=== PATIENT | male | born 1975 | race Caucasian/White ===

== ENCOUNTER 2016-02-24 02:01 | Inpatient (IN) | payer MEDICARE, OTHER ==
[~2016-02-24] VITALS: Ht 177.8 cm; Wt 72.7 kg
[~2016-02-24 02:01] MED LIST: ACET325T33 GTB; ACET325T33 PO; ASC500 GTB; BISA10SU58 PR; CHLO15MO MM; CRAN3875 GTB; DANT50CA PO; DOCU-144 GTB; ESCI10TA GTB; FER325 GTB; HYDR-3498 PO; LEVA1.2523 NEB; LEVA1.257 INHALATION; MAGN400O4 GTB; MULT-552 PO; NA P118E PR; ONDA4TAB8 PO; PANT40SU2 GTB; POLY17PO6 PO; RISP0.5T21 PO; TYL500 PO
[2016-02-24 02:34] LABS: AADO2 Arterial 226.3 mmHg (7.0-24.0); Allen Test ACCEPTAB; Arterial Base Excess -0.8 mmol/L (-3.0-3); Arterial COHb 0.3 % (0.0-3.0); Arterial Fraction of Oxyhgb 96.6 % (93.0-99.0); Arterial HCO3 23.5 mmol/L (22.0-26.0); Arterial MetHb 0.1 % (0.0-1.5); Arterial Total Hemglobin 11.1 g/dl (12.0-18.0); MODE VENT - AC
--- NOTE | 2016-02-24 02:34 | RADRPT ---
PROCEDURE: XR Chest. CLINICAL INDICATION: Possible Sepsis TECHNIQUE: Single AP portable chest COMPARISON: 05/19/2015 FINDINGS: The cardiac silhouette is normal in size. Decreased vascular congestion and patchy air space diseas e compared to previous study. Mild vascular prominence suggestive of congestion. Dextroscoliosis o f the thoracic spine. Tracheostomy tube is in position. . The osseous structures and soft tissues are unremarkable. IMPRESSION: Mild vascular congestion. No focal consolidation or pleural effusion.. RPTAT:AAJJ Juliann Voss Physician Date Time Electronically viewed and signed by Juliann Voss Physician on 02/24/2016 02:34 KEN/
[2016-02-24 02:39] LABS: ALBUMIN 3.2 g/dl (3.3-4.9); BASOPHILS % 0.1 % (0.0-2.0); CHLORIDE 94 mmol/L (97-110); EOSINOPHILS % 0.1 % (0.0-7.0); HEMATOCRIT 31.1 % (42.0-52.0); HEMOGLOBIN 10.1 g/dl (14.0-18.0); INR 1.06; LYMPHOCYTES # 0.3 10^3/ul (0.8-2.9); LYMPHOCYTES % 2.1 % (15.0-51.0); MEAN CORPUSCULAR HEMOGLOBIN 29.1 pg (29.0-33.0); MEAN CORPUSCULAR HGB CONC 32.6 g/dl (32.0-37.0); MEAN CORPUSCULAR VOLUME 89.3 fl (82.0-101.0); MEAN PLATELET VOLUME 7.7 fl (7.4-10.4); MONOCYTE # 0.5 10^3/ul (0.3-0.9); MONOCYTES % 3.5 % (0.0-11.0); NEUTROPHILS % 94.2 % (39.0-77.0); PLATELET COUNT 312 10^3/UL (140-440); PROTIME 13.8 Sec (12.2-14.2); PT RATIO 1.1; RED BLOOD COUNT 3.48 10^6/ul (4.70-6.10); RED CELL DISTRIBUTION WIDTH 13.4 % (11.5-14.5); UNCORRECTED WBC 13.8 10^3/ul (4.8-10.8); WHITE BLOOD COUNT 13.8 10^3/ul (4.8-10.8)
[2016-02-24 02:40] LABS: PARTIAL THROMBOPLASTIN TIME 36.6 Sec (25.0-35.0); POTASSIUM 3.9 mmol/L (3.5-5.1); SODIUM 134 mmol/L (135-144)
[2016-02-24 02:41] LABS: ADD UMIC YES; URINE BILIRUBIN (Dip) NEGATIVE (NEGATIVE); URINE BLOOD (Dip) 3+ (NEGATIVE); URINE COLOR YELLOW (YELLOW); URINE GLUCOSE (Dip) NEGATIVE (NEGATIVE); URINE KETONES (Dip) NEGATIVE (NEGATIVE); URINE LEUKOCYTE ESTERASE (Dip) 3+ (NEGATIVE); URINE NITRITE (Dip) NEGATIVE (NEGATIVE); URINE TOTAL PROTEIN (Dip) 1+ (NEGATIVE); URINE UROBILINOGEN (Dip) 0.2 E.U./dL (0.1-1.0)
[2016-02-24 02:42] LABS: ALBUMIN/GLOBULIN RATIO 0.72; ALKALINE PHOSPHATASE 187 IU/L (42-121); ANION GAP 19 (8-16); ASPARTATE AMINO TRANSFERASE 12 IU/L (15-46); BLOOD UREA NITROGEN 104 mg/dl (7-20); CARBON DIOXIDE 25 mmol/L (21-31); CONDITION 1; CREATININE 2.97 mg/dl (0.61-1.24); GLUCOSE 124 mg/dl (70-220); LH ANALYZER COMMENTS 1; TOTAL PROTEIN 7.6 g/dl (6.1-8.1)
[2016-02-24 02:43] LABS: ALANINE AMINOTRANSFERASE 18 IU/L (13-69); CALCIUM 8.9 mg/dl (8.4-10.2)
[2016-02-24] MEDS ORDERED: VANCOMYCIN 1 GM (PMX) 250 ML IVPB ONE (02:47)
[2016-02-24] MEDS ORDERED: CEFEPIME 2GM/50 ML (PMX) 50 ML IVPB STA (02:47)
[2016-02-24] MEDS ORDERED: SODIUM CHLORIDE 0.9% 1L BAG IV* ONE (02:47)
--- NOTE | 2016-02-24 02:54 | ERA ---
ER Documentation Chief Complaint Date/Time DATE: 02/24/16 TIME: 02:51 Chief Complaint BIBA low O2 level after suctioning, resp distress, desaturation continued. HPI This is a 40-year-old male brought in by ambulance for desaturations from custodial facility. Patient trached vent patient. No history of per patient. History of EMS run sheet nursing transfer sheet. ROS All systems reviewed and are negative except as per history of present illness. Medications Home Meds Reported Medications Polyethylene Glycol* (Miralax*) 17 Gm Powd.pack, 17 GM PO QHS, PACKET 04/16/15 Multivitamins* (Once Daily*) 1 Tab Tablet, 1 TAB PO DAILY, TAB 04/16/15 Ondansetron Hcl* (Zofran*) 4 Mg Tablet, 4 MG PO Q6H Y for NAUSEA AND OR VOMITING , TAB 04/16/15 Magnesium Hydroxide* (Milk Of Magnesia*) 400 Mg/5 Ml Oral.susp, 30 ML PO DAILY Y for CONSTIPATION, ML 04/16/15 Escitalopram Oxalate* (Lexapro*) 10 Mg Tablet, 10 MG PO DAILY, #30 TAB 04/16/15 Na Phos,M-B/Na Phos,Di-Ba* (Fleet* Enema) 118 Ml Enema, 118 ML TX Q48H Y for CONSTIPATION, ENEMA 04/16/15 Ferrous Sulfate* (Ferrous Sulfate*) 325 Mg Tabec, 325 MG PO DAILY, TAB 04/16/15 Bisacodyl* (Dulcolax*) 10 Mg/Supp.rect Supp.rect, 10 MG TX Q24H Y for CONSTIPATION, SUPP.RECT 04/16/15 Dantrolene Sodium* (Dantrolene Sodium*) 50 Mg Capsule, 50 MG PO BID, CAP 04/16/15 Docusate Sodium* (Colace*) 100 Mg Capsule, 200 MG PO QHS, #30 CAP 04/16/15 Chlorhexidine Gluconate* (Peridex*) 480 Ml Mouthwash, 15 ML MM Q12, ML 04/16/15 Levalbuterol Hcl* (Levalbuterol Hcl*) 1.25 Mg/3 Ml Vial.neb, 1.25 MG INHALATION Q6H Y for WHEEZING AND SOB, VIAL 04/16/15 Levalbuterol* (Xopenex*) 1.25 Mg/3 Ml Nebu, 1.25 MG NEB Q3H Y for WHEEZING AND SOB, EA 04/16/15 Ascorbic Acid (Vitamin C) 500 Mg Tab, 500 MG PO DAILY, TAB 04/16/15 Cran/Vitc/Mannose/Inulin/Brom (Uti-Stat Liquid) 3,875 Mg/30 Ml Liquid, 3875 MG PO DAILY 04/16/15 Acetaminophen* (Tylenol*) 500 Mg Tab, 1000 MG PO Q4H Y for MODERATE PAIN LEVEL 4 -6, TAB 04/16/15 Acetaminophen* (Tylenol*) 325 Mg Tablet, 650 MG PO Q4 Y for FEVER GREATER THAN 100.6, TAB 04/16/15 Acetaminophen* (Tylenol*) 325 Mg Tablet, 650 MG PO Q4H Y for MILD PAIN LEVEL 1-3 , TAB 04/16/15 Acetaminophen* (Tylenol*) 325 Mg Tablet, 325 MG PO Y for TRACH TUBE CHANGE, TAB 04/16/15 Risperidone* (Risperdal*) 0.5 Mg Tablet, 0.5 MG PO BID, TAB 04/16/15 Pantoprazole (Protonix) 40 Mg/Blist Pack Suspdr.pkt, 40 MG PO DAILY, PACKET 04/16/15 Hydrocodone Bit-Acetaminophen* ([place]*) 5-325 Mg Tab, 1 TAB PO BID, TAB 04/16/15 Hydrocodone Bit-Acetaminophen* ([place]*) 5-325 Mg Tab, 1 TAB PO Q6 Y for PAIN LEVEL 7-10, TAB 04/16/15 Allergies Allergies: Coded Allergies: No Known Allergy (Unverified , 04/16/15) PMhx/Soc History of Surgery: Yes Anesthesia Reaction: No Hx Psychiatric Problems: Yes (depression, psychosis) Hx Miscellaneous Medical Probl: Yes (spinal chord injury, 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, SUPRAPUBIC CATHETER) Hx Alcohol Use: No Hx Substance Use: No Hx Tobacco Use: No Smoking Status: Never smoker Physical Exam Vitals Vital Signs Date Time Temp Pulse Resp B/P Pulse Ox O2 Delivery O2 Flow Rate FiO2 02/24/16 02:30 99.3 118 19 82/48 99 Mechanical Ventilator 02/24/16 02:24 116 16 120/71 99 Mechanical Ventilator 02/24/16 02:22 116 16 122/88 100 Mechanical Ventilator 02/24/16 02:15 116 20 79/51 100 Ambu Bag 15.0 02/24/16 02:14 116 20 75/49 100 Physical Exam Const: [] Head: Atraumatic Eyes: Normal Conjunctiva ENT: Trach site clean dry and intact Neck: Full range of motion..~ No meningismus. Resp: Clear to auscultation bilaterally Cardio: Regular rate and rhythm, no murmurs Abd: Soft, non tender, non distended. Normal bowel sounds. Suprapubic catheter with minimal induration surrounding site. Catheter draining purulent urine Skin: No petechiae or rashes Back: No midline or flank tenderness Ext: No cyanosis, or edema Neur: Obtunded Psych: Normal Mood and Affect Result Diagram: 02/24/16 0200 02/24/16 0200 Results 24 hrs Laboratory Tests Test 02/24/16 00:00 02/24/16 02:00 02/24/16 02:22 Arterial Blood HCO3 23.5mmol/L Arterial Blood Base Excess -0.8mmol/L Arterial Blood Oxygen Saturation 97.0mmHG Julito Test ACCEPTAB Arterial Blood Gas Puncture Site Right Brachial Arterial Blood Carboxyhemoglobin 0.3% Arterial Blood Date Drawn 02/24/2016 2:25:02 AM Arterial Blood Methemoglobin 0.1% Arterial Blood pCO2 (Temp correct) 37.7mmhg Arterial Blood pH (Temp corrected) 7.413 Arterial Blood pO2 (Temp corrected) 87.8mmHG Blood Gas A-a O2 Differential 226.3mmHg Blood Gas Actual Respiration Rate 14 Blood Gas Low PEEP Setting 5.0cmH2O Blood Gas Modality VENT - AC Blood Gas Notified Time 02/24/2016 2:34:42 AM Blood Gas Notified Whom MG Blood Gas Respiration Rate 14.0 Blood Gas Specimen Source Blood arterial Blood Gas Temperature 37.0C Blood Gas Tidal Volume 550.0mL FiO2 50.0% Oxyhemoglobin Percent 96.6% Total Hemoglobin 11.1g/dl Activated Partial Thromboplast Time 36.6Sec Alanine Aminotransferase (ALT/SGPT) Pending Albumin 3.2g/dl Albumin/Globulin Ratio Pending Alkaline Phosphatase Pending Anion Gap Pending Aspartate Amino Transf (AST/SGOT) Pending Basophils # 0.010^3/ul Basophils % 0.1% Blood Urea Nitrogen Pending Calcium Level Pending Carbon Dioxide Level Pending Chloride Level 94mmol/L Creatinine Pending Direct Bilirubin Pending Eosinophils # 0.010^3/ul Eosinophils % 0.1% Globulin Pending Glucose Level Pending Hematocrit 31.1% Hemoglobin 10.1g/dl INR International Normalized Ratio 1.06 Indirect Bilirubin Pending Lymphocytes # 0.310^3/ul Lymphocytes % 2.1% Mean Corpuscular Hemoglobin 29.1pg Mean Corpuscular Hemoglobin Concent 32.6g/dl Mean Corpuscular Volume 89.3fl Mean Platelet Volume 7.7fl Monocytes # 0.510^3/ul Monocytes % 3.5% Neutrophils # 13.010^3/ul Neutrophils % 94.2% Nucleated Red Blood Cells # 0.010^3/ul Nucleated Red Blood Cells % 0.0/100WBC Platelet Count 93273^3/UL Potassium Level 3.9mmol/L Prothrombin Time 13.8Sec Prothrombin Time Ratio 1.1 Red Blood Count 3.4810^6/ul Red Cell Distribution Width 13.4% Sodium Level 134mmol/L Total Bilirubin Pending Total Protein Pending Troponin I Pending White Blood Count 13.810^3/ul Urine Bilirubin NEGATIVE Urine Clarity HAZY Urine Color YELLOW Urine Glucose NEGATIVE% Urine Hemoglobin 3+ Urine Ketones NEGATIVE Urine Leukocyte Esterase 3+ Urine Microscopic RBC Pending Urine Microscopic WBC Pending Urine Nitrite NEGATIVE Urine Specific [place] 1.015 Urine Total Protein 1+ Urine Urobilinogen 0.2 E.U./dL Urine pH 8.5 Current Medications Medications (Trade) Dose Ordered Sig/Dwain Route PRN Reason Start Time Stop Time Status Last Admin Dose Admin Sodium Chloride (NS) 1,000 ml @ 1,000 mls/hr Q1H ONCE IV 02/24/16 03:00 02/24/16 03:59 Sodium Chloride 2250 ml 2,250 ml BOLUS OVER 2 HOURS ONCE IV* 02/24/16 02:47 02/24/16 02:49 DC Vancomycin HCl 250 ml @ 125 mls/hr ONCE ONCE IVPB 02/24/16 02:47 02/24/16 04:46 Cefepime HCl (Maxipime 2gm/50 ml (Pmx)) 50 ml @ 100 mls/hr ONCE STAT IVPB 02/24/16 02:47 02/24/16 03:16 Procedures/MDM Patient's infectious symptoms have not stabilized and the patient is at risk of rapid decompensation. The patient will be admitted for careful hydration, antibiotic therapy, and infectious source control. Severe Sepsis Assessment: Infectious Source: pyleonephritis End organ damage indicated by: [Lactate > 2.0 mmol/L Hypotension( SBP < 90 or >40 mmHG drop or MAP < 65) Acute Resp Failure (sat < 92% w/o oxygen) Severe Sepsis Managment: Blood Cultures X 2 before broad spectrum antibiotics initiated within 3 hours of recognition. 30 ml/kg NS bolus Completed Initial Lactate: Elevated Repeat Lactate pending Critical Care: Time: 45 minutes Treatments/Evaluations: Emergent fluid management, while maintaining close respiratory support. Immediate broad spectrum antibiotic therapy. Simultaneous assessment for possible sources in order to direct therapy. Consideration for invasive and chemical support to prevent respiratory or cardiac collapse. Septic Shock Assessment (1 hour post 30 ml/kg fluid bolus): Hypotension (SBP < 90 or 40 mmHg drop, MAP < 65): No Lactic acid > 4.0 No Perfusion Reassessment for Septic Shock: Temp 99.2, Pulse 107, RR [16, BP 97/62 Heart Exam: [Tachycardic Lung Exam: No Crackles Capillary Refill: Delayed Peripheral Pulses: Radially present Skin: Mottled, pale Accepting Care Team: Current data and ongoing care discussed. Time: 2:45 AM Primary Provider: Hospitalist Consulting: Per hospitalist Outstanding Data: none Chest X-ray 1V Interpreted by me: Soft Tissue: No acute abnormalities Bones: No acute abnormalities Mediastinum/Cardiac Silhouette/Lungs: No acute abnormalities EKG: Rate/Rhythm: Sinus tachycardia 114 bpm QRS, ST, T-waves: [No changes consistent w/ acute ischemia] Impression: Sinus tachycardia Departure Diagnosis: Primary Impression: Sepsis Qualified Code: A41.9 - Sepsis, due to unspecified organism Condition: Critical TATI STAUFFER Feb 24, 2016 02:54
[2016-02-24 02:55] LABS: BACTERIA,URINE MANY; SQUAMOUS EPITHELIAL CELL,UR FEW
[2016-02-24 02:57] LABS: TROPONIN-I < 0.012 ng/ml (0.00-0.12)
[2016-02-24] MEDS ORDERED: SOD CHLORIDE 0.9% 1,000 ML IV ONE (03:00)
[2016-02-24] MEDS ORDERED: morphine 4 MG/ML VIAL IV ONE (03:06)
[2016-02-24] MEDS ORDERED: ONDANSETRON 4 MG INJ IV ONE (03:06)
[2016-02-24] MEDS ORDERED: NACL 0.9% 3 ML SYG IV SCH (07:00)
[2016-02-24] MEDS ORDERED: VANCOMYCIN IV PER PHARMACY XX SCH (07:00)
[2016-02-24] MEDS ORDERED: ACETAMINOPHEN 325 MG TAB PO PRN (07:00)
[2016-02-24] MEDS ORDERED: LORA1TAB GTB (07:20)
[2016-02-24] MEDS ORDERED: BICS GTB (07:22)
[2016-02-24] MEDS ORDERED: OXYB5TAB22 GTB (07:24)
[2016-02-24] MEDS ORDERED: MULT473L10 PO (07:27)
[2016-02-24] MEDS ORDERED: HYDR-906 GTB (07:28)
[2016-02-24] MEDS: DEXTROSE 5%-0.45% NACL 1,000 ML IV SCH ×2 (07:30→22:13)
[2016-02-24] MEDS ORDERED: AMLO5TAB4 GTB (07:30)
[2016-02-24] MEDS ORDERED: CALC-277 PO (07:31)
[2016-02-24] MEDS: morphine 2 MG INJ IV PRN ×3 (07:36→21:51)
[2016-02-24] MEDS ORDERED: SEVE0.8P PO (07:39)
[2016-02-24] MEDS ORDERED: RISP1TAB3 GTB (07:40)
--- NOTE | 2016-02-24 07:41 | HP ---
DATE OF ADMISSION: 02/24/2016 TIME SEEN: 5 a.m. CHIEF COMPLAINT: Hypoxia. 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 Reportedly, he began to desaturate while he was at the fdc facility. He wa s suctioned and he was being bagged through his trach on arrival to the ER. Initial vital signs saeed w blood pressure of 75/49, heart rate 113, respiratory rate 14, oxygen saturation 100% on 50% FIO2. Temperature was 99.3. Laboratory result was notable for a WBC of 14,000, hemoglobin 10.1, which is stable. Sodium 134, BUN 104 and creatinine 2.97 from 1.7 about 9 months ago. The patient received weight-based IV fluids and was started on vancomycin and cefepime. His urinalysis shows a severe U TI. Chest x-ray showed mild vascular congestion with no focal consolidation or pleural effusion. O f note, the patient was last admitted here in April of last year for sepsis secondary to pneumonia and a UTI. At that time, the patient was discharged to [facility] with the intent to wean off the vent . REVIEW OF SYSTEMS: Negative except as mentioned in HPI. PAST MEDICAL HISTORY: As per HPI. PAST SURGICAL HISTORY: Tracheostomy, history of PEG placement, and also had a history of suprapubic catheter placement ALLERGIES: NO KNOWN DRUG ALLERGIES. HOME MEDICATION: 1. Dantrolene. 2. Xopenex. 3. Ferrous sulfate. 4. Acetaminophen. 5. Lexapro. 6. Rudolph. 7. Risperidone. 8. Peridex. 9. Dulcolax. 10. Zofran. 11. Protonix. 12. MiraLax. 13. Vitamin C. 14. Multivitamin. PHYSICAL EXAMINATION: VITAL SIGNS: Blood pressure 118/72, heart rate 104, respiratory rate 19, temperature 99.3, oxygen s aturation 100% on 50% FIO2. GENERAL: He is sleepy but arousable in no acute distress. HEENT: No obvious head deformity. Pupils are reactive to light. No scleral icterus. NECK: Trach tube in place. CARDIOVASCULAR: Tachycardic with regular rhythm. LUNGS: Slight decreased breath sounds at the bases anteriorly. ABDOMEN: Soft, nondistended. EXTREMITIES: No edema. He has a contracted body habitus and there is muscle wasting. LABORATORY: Pertinent positives as mentioned in the HPI. IMAGING: Chest x-ray shows mild vascular congestion and no focal consolidation or pleural effusion. IMPRESSION: 1. Sepsis secondary to urinary tract infection. 2. Hypoxia, possibly from increased secretions, improved. 3. Chronic kidney disease, worsening. 4. Chronic paraplegia from a cervical spine injury. 5. Chronic trach/vent respiratory failure. PLAN: Will admit to telemetry unit, but if patient's condition deteriorates, then he will go to ICU . Will continue broad spectrum antibiotics. Will follow up on blood culture and urine culture resu lts and will also send tracheal aspirate for Gram stain and culture. The patient has not been given based IV fluids and will continue fluids as needed. Will place a nephrology consult given the wors ening kidney function, which is likely secondary to sepsis. Will leave the decision up to nephrolog y as far as obtaining a renal ultrasound is concerned. Will place a pulmonary consult. Further workup and management will be per clinical course. Dictated By: TATI KESSLER/QUE Conf#: [id number] DID#: [id number]
[2016-02-24] MEDS: HEPARIN 5,000 UNIT/0.5 ML SYG SC SCH (09:47)
[2016-02-24] MEDS: RISPERIDONE 0.25 MG TAB PO SCH (10:03)
[2016-02-24] MEDS: MULTIVITAMINS THERAPEUTIC TAB PO SCH (10:03)
[2016-02-24] MEDS: ESCITALOPRAM 10 MG TAB PO SCH (10:04)
[2016-02-24] MEDS: CEFEPIME 1GM/50 ML (PMX) 50 ML IVPB SCH ×2 (11:58→22:13)
--- NOTE | 2016-02-24 15:33 | QN ---
Documentation Comment Tracheostomy change: Patient had persistent leak from his size 7 trach. Therefore I changed the trach at the bedside with assistance from respiratory. Patient tolerated entire procedure. Size 8 trach placed instead of 7. GANESH BARCLAY MD Feb 24, 2016 15:33
[2016-02-24] MEDS ORDERED: HYDROmorphONE 1 MG/ML SYG IV STA (15:57)
--- NOTE | 2016-02-24 18:10 | CONS ---
DATE OF ADMISSION: 02/24/2016 DATE OF CONSULTATION: 02/24/2016 TYPE OF CONSULTATION: Infectious disease. REASON FOR CONSULTATION: Antibiotic management. HISTORY OF PRESENT ILLNESS: Henry Haddad is a 40-year-old male with numerous problems including chronic paraplegia from his cervical spine injury that comes in hypoxic and is being seen for antibi otic management. His problems that include: 1. Chronic paraplegia. 2. Ventilator dependent respiratory failure. 3. Sepsis from pneumonia and urinary tract infection. 4. Chronic renal disease. Patient was brought in for hypoxia. He began to desaturate while he was at the assisted facility. Initial vital signs showed a blood pressure of 75/49. He was mary lou ng bagged through his trach on arrival in the emergency room. Respiratory rate was 14 and he needed 50% FIO2 for an O2 sat of 100%, temperature was 99.3. Laboratory results notable for white count of 14,000. BUN and creatinine 104/2.97. The patient was given vancomycin and cefepime. His white co unt was 13.8, H and H 10.1 and 31.1, platelet count of 312,000. His BUN and creatinine was 104/2.97 . Urine shows 3+ leukocyte esterase and greater than 200 white cells per high powered field. Chest x-ray showed mild vascular congestion. No focal consolidation or pleural effusion. PAST MEDICAL HISTORY, PAST SURGICAL HISTORY: Status post tracheostomy, status post G-tube placement . Also, history of suprapubic catheter placement. FAMILY HISTORY: Noncontributory. SOCIAL HISTORY: He obviously does not smoke, drink or abuse drugs. ALLERGIES: NONE TO PENICILLIN, SULFA OR FOODS. MEDICATIONS: Per chart. REVIEW OF SYSTEMS: As per HPI. PHYSICAL EXAMINATION: GENERAL: The patient is a well-developed, well-nourished, chronically ill-appearing male who is sle epy but arousable. VITAL SIGNS: Stable at this point, he is afebrile. SKIN: Without generalized rash. HEENT: Within normal limits. LYMPH NODES: Tracheostomy in place. CHEST: Decreased breath sounds at the bases. HEART: Without murmur or gallop. Tachycardic. ABDOMEN: Soft and nontender. EXTREMITIES: Without cyanosis, clubbing, or edema. He has some contractures and muscle wasting. RECTAL AND GENITAL: Deferred. NEUROLOGIC: No focal neurological abnormality. IMPRESSION AND PLAN: The patient comes in with hypoxemia, probably sepsis secondary to urinary trac t infection, started on vancomycin and cefepime. Blood cultures and urine cultures were done. A tr acheal aspirate was sent for Gram stain and culture, nephrology consultation was obtained as well fo r BUN and creatinine 104/2.97, up from 1.7 nine months ago. We will observe, continue him on curren t therapy. I will dictate my findings to the hospitalist. Dictated By: ANTONELLA STEWART MD, JD/QUE Conf#: [id number] DID#: [id number]
--- NOTE | 2016-02-24 19:15 | QN ---
Documentation Comment [id number] RENAL A/P BELINDA ATN PRERENAL AZOTEMIA SEPSIS UTI PLAN PER ORDER BRIANDA HIRSCH MD Feb 24, 2016 19:15
[2016-02-24] MEDS: HYDROmorphONE 1 MG/ML SYG IV PRN (19:20)
[2016-02-24 20:30] VITALS: TEMP 98
--- NOTE | 2016-02-24 20:43 | CONS ---
DATE OF ADMISSION: 02/24/2016 DATE OF CONSULTATION: TYPE OF CONSULTATION: Nephrology. Thank you, Dr. Pavan Miner and Dr. Estevez, for kindly asking me to see this patient in nephrology cons ultation. HISTORY OF PRESENT ILLNESS: A 40-year-old male who has a history of cervical spine injury, parapleg ia, has a tracheostomy and had a G-tube. The patient presented to this hospital for hypoxemia and d esaturation. The patient's laboratory data done shows the patient has uremia, electrolyte imbalance , leukocytosis. In view of patient's abnormal electrolytes, nephrology consultation is requested. The patient himself cannot give a detailed history at this point. PAST MEDICAL HISTORY: Positive for severe sepsis secondary to healthcare-associated pneumonia versu s aspiration pneumonia, status post history of paraplegia, cervical spine injury, history of UTI, hi story of CKD. The patient's other history includes patient has a history of neurogenic bladder, his tory of dysphagia, G-tube placement, history of depression. ALLERGY HISTORY: LISTED NEGATIVE. FAMILY HISTORY: Cannot be obtained. SOCIAL HISTORY: Cannot be obtained. MEDICATION HISTORY: The patient's home medications listed as: 1. Tylenol. 2. Norvasc. 3. Vitamin C. 4. Calcium carbonate. 5. Peridex. 6. Bicitra. 7. Cranberry. 8. Vitamins. 9. Dantrolene sodium. 10. Docusate sodium. 11. Lexapro. 12. Iron sulfate. 13. [place]. 14. Xopenex. 15. Lorazepam. 16. Milk of magnesia. 17. Multivitamin. 18. Ditropan. 19. Protonix. 20. MiraLax. 21. Risperdal. 22. Renvela. REVIEW OF SYSTEMS: Limited. PHYSICAL EXAMINATION: GENERAL: The patient is awake, alert, aphasic due to tracheostomy. VITAL SIGNS: Pulse 90, blood pressure of 123/82. HEENT: Head is atraumatic, normocephalic. Pupils are equal and reactive. NECK: Tracheostomy site is clear. LUNGS: Rhonchi noted and ____ crepitation at bases. CARDIOVASCULAR: S1, S2 are normal. Tachycardia noted. ABDOMEN: Soft, distended. Bowel sounds positive. G-tube noted. EXTREMITIES: No cyanosis, clubbing. Muscle wasting and lower extremity paraplegia noted. LABORATORY DATA: ABG: pH 7.41, pCO2 of 37, pO2 of 87. WBC 13.8, hematocrit 31.1, platelet count o f 312. Sodium 134, potassium 3.9, chloride 94, BUN 104, creatinine 2.97. Urinalysis: pH 8, specif ic gravity 1.015, ____ 3+. The patient has a chest x-ray, shows mild vascular congestion, no focal consolidation or pleural eff usion. The patient's BUN 49, creatinine 1.92 on 04/20/2015. IMPRESSION: The patient has: 1. Acute kidney injury. 2. Sepsis. 3. Underlying prerenal azotemia. 4. Underlying acute tubular necrosis due to sepsis. 5. Anion gap metabolic acidosis. 6. Hyponatremia. 7. Leukocytosis. 8. Anemia. 9. Urinary tract infection. 10. Lung congestion, possible underlying pneumonia. 11. Paraplegia. 12. Respiratory failure and tracheostomy. 13. Incomplete database. PLAN: Obtain urine sodium, creatinine, eosinophils, serum osmolality, urine osmolality. The patien t will be started on saline solution IV fluid to reverse any component of prerenal azotemia. Electr olytes will be monitored. Recommendation will be made to avoid nephrotoxic drugs whenever possible and antibiotic dose adjustment per pharmacy and per infectious disease doctor on the case in view of patient's acute kidney injury. Thank you, Dr. Estevez and Dr. Miner, for kindly asking me to see this patient in nephrology consultatio n. Dictated By: BRIANDA JACKSON/QUE Conf#: [id number] DID#: [id number]
[2016-02-24] MEDS: POLYETHYLENE GLYCOL 17 GM PACKET PO SCH (21:00)
[2016-02-24 22:30] VITALS: BP 97/56; PULSE 118; RESP 18; Ht 177.8 cm; Wt 72.7 kg
[2016-02-24 22:39] VITALS: PULSE 115
[2016-02-25] VITALS (60 sets, daily range): BP systolic 72–139; BP diastolic 37–72; PULSE 83–121; RESP 14–28
[2016-02-25] MEDS: SOD CHLORIDE 0.45% 1,000 ML IV SCH ×4 (00:08→21:40)
[2016-02-25] MEDS: ZOLPIDEM 5 MG TAB PO PRN (00:09)
[2016-02-25] MEDS: RISPERIDONE 0.25 MG TAB PO SCH ×3 (00:09→21:49)
[2016-02-25] MEDS: HEPARIN 5,000 UNIT/0.5 ML SYG SC SCH ×3 (00:30→21:15)
[2016-02-25] MEDS: DEXTROSE 5%-0.45% NACL 1,000 ML IV SCH (03:30)
[2016-02-25 06:49] LABS: BASOPHILS % 0.2 % (0.0-2.0); EOSINOPHILS # 0.1 10^3/ul (0.0-0.5); EOSINOPHILS % 0.6 % (0.0-7.0); HEMATOCRIT 29.9 % (42.0-52.0); HEMOGLOBIN 9.7 g/dl (14.0-18.0); LYMPHOCYTES # 0.6 10^3/ul (0.8-2.9); LYMPHOCYTES % 6.3 % (15.0-51.0); MEAN CORPUSCULAR HEMOGLOBIN 29.4 pg (29.0-33.0); MEAN CORPUSCULAR HGB CONC 32.6 g/dl (32.0-37.0); MEAN CORPUSCULAR VOLUME 90.3 fl (82.0-101.0); MEAN PLATELET VOLUME 7.5 fl (7.4-10.4); MONOCYTE # 0.5 10^3/ul (0.3-0.9); NEUTROPHIL # 7.6 10^3/ul (1.6-7.5); NEUTROPHILS % 86.9 % (39.0-77.0); PLATELET COUNT 266 10^3/UL (140-440); RED BLOOD COUNT 3.31 10^6/ul (4.70-6.10); RED CELL DISTRIBUTION WIDTH 13.7 % (11.5-14.5); UNCORRECTED WBC 8.8 10^3/ul (4.8-10.8); WHITE BLOOD COUNT 8.8 10^3/ul (4.8-10.8)
[2016-02-25 06:57] LABS: CONDITION 1
[2016-02-25 07:03] LABS: ALBUMIN 2.8 g/dl (3.3-4.9)
[2016-02-25 07:04] LABS: POTASSIUM 3.9 mmol/L (3.5-5.1)
[2016-02-25 07:06] LABS: ALBUMIN/GLOBULIN RATIO 0.65; CREATININE 2.71 mg/dl (0.61-1.24); TOTAL PROTEIN 7.1 g/dl (6.1-8.1)
[2016-02-25 07:07] LABS: CALCIUM 8.9 mg/dl (8.4-10.2); MAGNESIUM 2.5 mg/dl (1.7-2.5)
[2016-02-25] MEDS: ESCITALOPRAM 10 MG TAB PO SCH (08:41)
[2016-02-25] MEDS: MULTIVITAMINS THERAPEUTIC TAB PO SCH (08:41)
[2016-02-25] MEDS ORDERED: SOD CHLORIDE 0.9% 1,000 ML IV ONE ×2 (09:00→12:00)
[2016-02-25] MEDS ORDERED: ALBUMIN HUMAN 5% 250 ML IV ONE (10:30)
[2016-02-25] MEDS ORDERED: LIDOCAINE 1% (MDV) 20 ML INJ SC ONE (11:00)
--- NOTE | 2016-02-25 14:11 | HP ---
Date/Time of Note Date/Time of Note DATE: 02/25/16 TIME: 14:10 Assessment/Plan Lines/Catheters IV Catheter Type (from Nrsg): Peripheral IV HPI/ROS Admit Date/Time Admit Date/Time Feb 24, 2016 at 05:06 Hx of Present Illness BIBA low O2 level after suctioning, resp distress, desaturation continued. HPI This is a 40-year-old male brought in by ambulance for desaturations from intermediate facility. Patient trached vent patient. No history of per patient. History of EMS run sheet nursing transfer sheet. ROS All systems reviewed and are negative except as per history of present illness. Medications Home Meds Reported Medications Polyethylene Glycol* (Miralax*) 17 Gm Powd.pack, 17 GM PO QHS, PACKET 04/16/15 Multivitamins* (Once Daily*) 1 Tab Tablet, 1 TAB PO DAILY, TAB 04/16/15 Ondansetron Hcl* (Zofran*) 4 Mg Tablet, 4 MG PO Q6H Y for NAUSEA AND OR VOMITING , TAB 04/16/15 Magnesium Hydroxide* (Milk Of Magnesia*) 400 Mg/5 Ml Oral.susp, 30 ML PO DAILY Y for CONSTIPATION, ML 04/16/15 Escitalopram Oxalate* (Lexapro*) 10 Mg Tablet, 10 MG PO DAILY, #30 TAB 04/16/15 Na Phos,M-B/Na Phos,Di-Ba* (Fleet* Enema) 118 Ml Enema, 118 ML FL Q48H Y for CONSTIPATION, ENEMA 04/16/15 Ferrous Sulfate* (Ferrous Sulfate*) 325 Mg Tabec, 325 MG PO DAILY, TAB 04/16/15 Bisacodyl* (Dulcolax*) 10 Mg/Supp.rect Supp.rect, 10 MG FL Q24H Y for CONSTIPATION, SUPP.RECT 04/16/15 Dantrolene Sodium* (Dantrolene Sodium*) 50 Mg Capsule, 50 MG PO BID, CAP 04/16/15 Docusate Sodium* (Colace*) 100 Mg Capsule, 200 MG PO QHS, #30 CAP 04/16/15 Chlorhexidine Gluconate* (Peridex*) 480 Ml Mouthwash, 15 ML MM Q12, ML 04/16/15 Levalbuterol Hcl* (Levalbuterol Hcl*) 1.25 Mg/3 Ml Vial.neb, 1.25 MG INHALATION Q6H Y for WHEEZING AND SOB, VIAL 04/16/15 Levalbuterol* (Xopenex*) 1.25 Mg/3 Ml Nebu, 1.25 MG NEB Q3H Y for WHEEZING AND SOB, EA 04/16/15 Ascorbic Acid (Vitamin C) 500 Mg Tab, 500 MG PO DAILY, TAB 04/16/15 Cran/Vitc/Mannose/Inulin/Brom (Uti-Stat Liquid) 3,875 Mg/30 Ml Liquid, 3875 MG PO DAILY 04/16/15 Acetaminophen* (Tylenol*) 500 Mg Tab, 1000 MG PO Q4H Y for MODERATE PAIN LEVEL 4 -6, TAB 04/16/15 Acetaminophen* (Tylenol*) 325 Mg Tablet, 650 MG PO Q4 Y for FEVER GREATER THAN 100.6, TAB 04/16/15 Acetaminophen* (Tylenol*) 325 Mg Tablet, 650 MG PO Q4H Y for MILD PAIN LEVEL 1-3 , TAB 04/16/15 Acetaminophen* (Tylenol*) 325 Mg Tablet, 325 MG PO Y for TRACH TUBE CHANGE, TAB 04/16/15 Risperidone* (Risperdal*) 0.5 Mg Tablet, 0.5 MG PO BID, TAB 04/16/15 Pantoprazole (Protonix) 40 Mg/Blist Pack Suspdr.pkt, 40 MG PO DAILY, PACKET 04/16/15 Hydrocodone Bit-Acetaminophen* ([place]*) 5-325 Mg Tab, 1 TAB PO BID, TAB 04/16/15 Hydrocodone Bit-Acetaminophen* ([place]*) 5-325 Mg Tab, 1 TAB PO Q6 Y for PAIN LEVEL 7-10, TAB 04/16/15 Allergies Allergies: Coded Allergies: No Known Allergy (Unverified , 04/16/15) PMH/Family/Social Past Medical History PMhx/Soc History of Surgery: Yes Anesthesia Reaction: No Hx Psychiatric Problems: Yes (depression, psychosis) Hx Miscellaneous Medical Probl: Yes (spinal chord injury, 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, SUPRAPUBIC CATHETER) Hx Alcohol Use: No Hx Substance Use: No Hx Tobacco Use: No Smoking Status: Never smoker Social History Smoking Status: Never smoker Exam/Review of Systems Vital Signs Vitals Vital Signs Date Time Temp Pulse Resp B/P Pulse Ox O2 Delivery O2 Flow Rate FiO2 02/25/16 12:30 97 02/25/16 12:30 90/53 02/25/16 11:27 98.8 20 91 02/25/16 05:42 Aerosol 10.0 50 T Tube Intake and Output 02/24/16 02/24/16 02/25/16 15:00 23:00 07:00 Intake Total 75 ml Output Total 2000 ml 600 ml Balance -2000 ml -525 ml Labs Result Diagram: 02/25/1614 02/25/1614 Medications Medications Current Medications Ondansetron HCl (Zofran Inj) 4 mg Q6H PRN IV NAUSEA AND/OR VOMITING; Start at 07:00 Acetaminophen (Tylenol Tab) 650 mg Q6H PRN PO PAIN LEVEL 1-3 OR FEVER Last administered on 02/25/16 08:41; Admin Dose 650 MG; Start 02/24/16 at 07:00 Morphine Sulfate (morphine) 2 mg Q4H PRN IV PAIN LEVEL 7-10 Last administered on 02/24/16 21:51; Admin Dose 2 MG; Start 02/24/16 at 07:00 Heparin Sodium (Porcine) (Heparin (5000 Units/0.5 ml)) 5,000 unit Q12 SC Last administered on 02/25/16 08:49; Admin Dose 5,000 UNIT; Start 02/24/16 at 09:00 Escitalopram Oxalate (Lexapro) 10 mg DAILY PO Last administered on 02/25/16 08 :41; Admin Dose 10 MG; Start 02/24/16 at 09:00 Magnesium Hydroxide (Milk Of Mag) 30 ml DAILY PRN PO CONSTIPATION; Start at 07:00 Multivitamins Therapeutic (Theragran) 1 tab DAILY PO Last administered on 08:41; Admin Dose 1 TAB; Start 02/24/16 at 09:00 Polyethylene Glycol (Miralax) 17 gm QHS PO ; Start 02/24/16 at 21:00 Risperidone 0.5 mg 0.5 mg BID PO Last administered on 02/25/16 08:41; Admin Dose 0.5 MG; Start 02/24/16 at 09:00 Cefepime HCl (Maxipime 1gm/50 ml (Pmx)) 50 ml @ 100 mls/hr Q12 IVPB Last administered on 02/24/16 22:13; Admin Dose 100 MLS/HR; Start 02/24/16 at 12:00 Hydromorphone HCl 0.5 mg 0.5 mg Q6H PRN IV pain Last administered on 02/24/16 19:20; Admin Dose 0.5 MG; Start 02/24/16 at 16:00 Sodium Chloride (1/2 NS) 1,000 ml @ 75 mls/hr [id number] IV Last administered on 02/25/16 08:40; Admin Dose 75 MLS/HR; Start 02/24/16 at 19:00 Influenza Virus Vaccine (Fluzone) 0.5 ml ONCE ONCE IM* ; Start 02/27/16 at 09:00 ; Stop 02/27/16 at 09:01 Acetaminophen/ Hydrocodone Bitart ([place] (5/325)) 1 tab Q4H PRN GTB pain; Start 02/25/16 at 12:00 Zinc Sulfate (Zinc Sulfate) 220 mg DAILY GTB ; Start 02/26/16 at 09:00 Miscellaneous Information (*Rx Drug Level Order Reminder*) 1 ONCE ONCE XX ; Start 02/26/16 at 05:00; Stop 02/26/16 at 05:01 NAE VELAZCO Feb 25, 2016 14:11
--- NOTE | 2016-02-25 14:37 | PN ---
Date/Time of Note Date/Time of Note DATE: 02/25/16 TIME: 14:25 Assessment/Plan VTE Prophylaxis VTE Prophylaxis Intervention: other Lines/Catheters IV [facility] (from [facility] Peripheral IV Assessment/Plan Assessment/Plan Sepsis. - per ID- Dr Maciel - lactic acid AM Hypotension sec to sepsis - Transfer to icu - SEE ORDERS Acute kidney injury - per nephrology Underlying prerenal azotemia. Underlying acute tubular necrosis due to sepsis. Anion gap metabolic acidosis. Hyponatremia. Respiratory failure and tracheostomy. - Pulmonary consult appreciated- Dr Ames notified Anemia. Urinary tract infection. Lung congestion, possible underlying pneumonia. Paraplegia. dw Dr Barreto Exam/Review of Systems Vital Signs Vitals Vital Signs Date Time Temp Pulse Resp B/P Pulse Ox O2 Delivery O2 Flow Rate FiO2 02/25/16 12:30 97 02/25/16 12:30 90/53 02/25/16 11:27 98.8 20 91 02/25/16 05:42 Aerosol 10.0 50 T Tube Intake and Output 02/24/16 02/24/16 02/25/16 15:00 23:00 07:00 Intake Total 75 ml Output Total 2000 ml 600 ml Balance -2000 ml -525 ml Results Result Diagram: 02/25/16 0614 02/25/16 0614 Results 24 hrs Laboratory Tests Test 02/25/16 06:14 Alanine Aminotransferase (ALT/SGPT) 22 Albumin 2.8 L Albumin/Globulin Ratio 0.65 Alkaline Phosphatase 168 H Anion Gap 17 H Aspartate Amino Transf (AST/SGOT) 11 L Basophils # 0.0 Basophils % 0.2 Blood Urea Nitrogen 82 H Calcium Level 8.9 Carbon Dioxide Level 23 Chloride Level 109 # Creatinine 2.71 H Direct Bilirubin 0.00 Eosinophils # 0.1 Eosinophils % 0.6 Globulin 4.30 H Glucose Level 94 Hematocrit 29.9 L Hemoglobin 9.7 L Indirect Bilirubin 0.0 Lymphocytes # 0.6 L Lymphocytes % 6.3 L Magnesium Level 2.5 Mean Corpuscular Hemoglobin 29.4 Mean Corpuscular Hemoglobin Concent 32.6 Mean Corpuscular Volume 90.3 Mean Platelet Volume 7.5 Monocytes # 0.5 Monocytes % 6.0 Neutrophils # 7.6 H Neutrophils % 86.9 H Nucleated Red Blood Cells # 0.0 Nucleated Red Blood Cells % 0.0 Osmolality 317 H Platelet Count 266 Potassium Level 3.9 Prealbumin 12.1 L Red Blood Count 3.31 L Red Cell Distribution Width 13.7 Sodium Level 145 H Total Bilirubin 0.0 L Total Protein 7.1 White Blood Count 8.8 # Medications Medications Current Medications Ondansetron HCl (Zofran Inj) 4 mg Q6H PRN IV NAUSEA AND/OR VOMITING; Start at 07:00 Acetaminophen (Tylenol Tab) 650 mg Q6H PRN PO PAIN LEVEL 1-3 OR FEVER Last administered on 02/25/16 08:41; Admin Dose 650 MG; Start 02/24/16 at 07:00 Morphine Sulfate (morphine) 2 mg Q4H PRN IV PAIN LEVEL 7-10 Last administered on 02/24/16 21:51; Admin Dose 2 MG; Start 02/24/16 at 07:00 Heparin Sodium (Porcine) (Heparin (5000 Units/0.5 ml)) 5,000 unit Q12 SC Last administered on 02/25/16 08:49; Admin Dose 5,000 UNIT; Start 02/24/16 at 09:00 Escitalopram Oxalate (Lexapro) 10 mg DAILY PO Last administered on 02/25/16 08 :41; Admin Dose 10 MG; Start 02/24/16 at 09:00 Magnesium Hydroxide (Milk Of Mag) 30 ml DAILY PRN PO CONSTIPATION; Start at 07:00 Multivitamins Therapeutic (Theragran) 1 tab DAILY PO Last administered on 08:41; Admin Dose 1 TAB; Start 02/24/16 at 09:00 Polyethylene Glycol (Miralax) 17 gm QHS PO ; Start 02/24/16 at 21:00 Risperidone 0.5 mg 0.5 mg BID PO Last administered on 02/25/16 08:41; Admin Dose 0.5 MG; Start 02/24/16 at 09:00 Cefepime HCl (Maxipime 1gm/50 ml (Pmx)) 50 ml @ 100 mls/hr Q12 IVPB Last administered on 02/24/16 22:13; Admin Dose 100 MLS/HR; Start 02/24/16 at 12:00 Hydromorphone HCl 0.5 mg 0.5 mg Q6H PRN IV pain Last administered on 02/24/16 19:20; Admin Dose 0.5 MG; Start 02/24/16 at 16:00 Sodium Chloride (1/2 NS) 1,000 ml @ 75 mls/hr [id number] IV Last administered on 02/25/16t 08:40; Admin Dose 75 MLS/HR; Start 02/24/16 at 19:00 Influenza Virus Vaccine (Fluzone) 0.5 ml ONCE ONCE IM* ; Start 02/27/16 at 09:00 ; Stop 02/27/16 at 09:01 Acetaminophen/ Hydrocodone Bitart ([place] (5/325)) 1 tab Q4H PRN GTB pain; Start 02/25/16 at 12:00 Zinc Sulfate (Zinc Sulfate) 220 mg DAILY GTB ; Start 02/26/16 at 09:00 Miscellaneous Information (*Rx Drug Level Order Reminder*) 1 ONCE ONCE XX ; Start 02/26/16 at 05:00; Stop 02/26/16 at 05:01 NAE VELAZCO Feb 25, 2016 14:35
--- NOTE | 2016-02-25 14:45 | CONS ---
DATE OF ADMISSION: 02/24/2016 DATE OF CONSULTATION: PULMONARY CONSULTATION REASON FOR CONSULTATION: Ventilator management. Thank you, Dr. Miner, for this consultation. HISTORY OF PRESENT ILLNESS: for this consultation. This is a 40-year-old gentleman with multiple m edical problems including vent-dependent respiratory failure, admitted from [facility] for [facility]emia, underwent tracheostomy replacement in the emergency room following periods of desatu ration in the [facility] facility. He has a history of UTI, pneumonia, cachexia, and significa nt contractures. PAST MEDICAL HISTORY: 1. C-spine injury with paraplegia. 2. Acute on chronic kidney disease. 3. Recurrent pneumonia. 4. History of UTIs. MEDICATIONS: Per chart. ALLERGIES: NONE. SOCIAL HISTORY: Nonsmoker, no alcohol, no history of drug use. FAMILY HISTORY: Noncontributory. SYSTEMS REVIEW: A 12-point review of systems currently unable to perform. PHYSICAL EXAMINATION: GENERAL: Chronically ill-appearing gentleman, appears comfortable at rest, no acute distress. VITAL SIGNS: Currently afebrile, pulse is 100, blood pressure 86/50, O2 saturation 96% on current v ent settings. intact. CARDIAC: S1, S2, no added sounds or murmurs. CHEST: Diminished air entry bilaterally. ABDOMEN: Soft, nontender. No guarding or rebound. EXTREMITIES: No cyanosis, clubbing, edema. NEUROLOGIC: Unable to assess. LABORATORIES: White count 8.8, hemoglobin 9.7, BUN 82, creatinine 2.71. INR 1.06. ABG: PH 7.4, p CO2 of 37, PaO2 of 87. Urinalysis was positive for UTI. IMPRESSION AND PLAN: 1. Urinary tract infection with sepsis. 2. Chronic vent-dependent respiratory failure. 3. History of C-spine injury with quadriplegia. 4. Dysphagia with G-tube. The patient will require: 1. Continued vent support. 2. Antibiotics for UTI. 3. Renal evaluation for the acute on chronic renal insufficiency. 4. DVT and GI prophylaxis. Dictated By: JESUS MANUEL RENTERIA/QUE Conf#: [id number] DID#: [id number]
--- NOTE | 2016-02-25 14:48 | RADRPT ---
PROCEDURE: XR Chest. CLINICAL INDICATION: Check PICC line position. TECHNIQUE: Single frontal view. COMPARISON: 02/24/2016. FINDINGS: There is a left arm PICC line with the tip in the lower superior vena cava. There is mild pulmonary edema and bibasilar atelectasis, slightly worse than seen previously. The lungs are otherwise edmundo r. The heart size is normal. There is no pleural effusion. There is no pneumothorax. IMPRESSION: 1. Satisfactory position of left arm PICC line. 2. Mild pulmonary edema and bibasilar atelectasis, slightly worse than seen previously. 3. Otherwise unremarkable study. RPTAT: QQ .Cain Castellanos MD, MD Date Time Electronically viewed and signed by .Cain Castellanos MD, on 02/25/2016 14:48 .R/
--- NOTE | 2016-02-25 15:00 | RADRPT ---
PROCEDURE: Ultrasound guidance for placement of needle in left upper extremity vein. CLINICAL INDICATION: Venous access. TECHNIQUE: Limited sonography of the left upper extremity was performed. Ultrasound images were recorded and s tored in the patient's medical record. COMPARISON: None. FINDINGS: The ultrasound images demonstrate a patent left upper extremity vein. The PICC line was inserted by the PICC line nurse. IMPRESSION: 1. Ultrasound guidance for a needle placement in a left upper extremity vein. 2. The left upper extremity vein is patent. RPTAT: QQ .Cain Castellanos MD, MD Date Time Electronically viewed and signed by .Cain Castellanos MD, MD on 02/25/2016 15:00 .R/
[2016-02-25 15:52] LABS: AADO2 Arterial 138.6 mmHg (7.0-24.0); Arterial Base Excess -6.9 mmol/L (-3.0-3); Arterial COHb 0.3 % (0.0-3.0); Arterial Fraction of Oxyhgb 92.3 % (93.0-99.0); Arterial HCO3 18.9 mmol/L (22.0-26.0); Arterial MetHb 0 % (0.0-1.5); Arterial Total Hemglobin 10.1 g/dl (12.0-18.0); MODE TRACH COLLAR
[2016-02-25] MEDS: CEFEPIME 1GM/50 ML (PMX) 50 ML IVPB SCH ×2 (15:56→21:48)
[2016-02-25] MEDS: HYDROmorphONE 1 MG/ML SYG IV PRN (16:11)
--- NOTE | 2016-02-25 18:59 | CONS ---
Date/Time of Note Date/Time of Note DATE: 02/25/16 TIME: 18:58 Assessment/Plan Assessment/Plan Chief Complaint/Hosp Course IMPRESSION: The patient has: 1. Acute kidney injury. 2. Sepsis. 3. Underlying prerenal azotemia. 4. Underlying acute tubular necrosis due to sepsis. 5. Anion gap metabolic acidosis. 6. Hyponatremia. 7. Leukocytosis. 8. Anemia. 9. Urinary tract infection. 10. Lung congestion, possible underlying pneumonia. 11. Paraplegia. 12. Respiratory failure and tracheostomy. 13. Incomplete database. plan iv fluid ck labs Problems: Consultation Date/Type/Reason Admit Date/Time Feb 24, 2016 at 05:06 Initial Consult Date Type of Consultation: RENAL 24 HR Interval Summary Subjective hx not possible: pt non-verbal Exam/Review of Systems Vital Signs Vitals Vital Signs Date Time Temp Pulse Resp B/P Pulse Ox O2 Delivery O2 Flow Rate FiO2 02/25/16 18:40 10.0 50 02/25/16 18:30 90 14 82/50 96 02/25/16 18:00 Mechanical Ventilator 02/25/16 15:30 98.0 Intake and Output 02/24/16 02/24/16 02/25/16 15:00 23:00 07:00 Intake Total 75 ml Output Total 2000 ml 600 ml Balance -2000 ml -525 ml Exam Respiratory: diminished breath sounds Cardiovascular: regular rate and rhythm Gastrointestinal: bowel sounds (+), soft Extremities: No edema Results Result Diagram: 02/25/16 0614 02/25/16 0614 Results 24 hrs Laboratory Tests Test 02/25/16 06:14 02/25/16 15:29 Alanine Aminotransferase (ALT/SGPT) 22 Albumin 2.8 L Albumin/Globulin Ratio 0.65 Alkaline Phosphatase 168 H Anion Gap 17 H Aspartate Amino Transf (AST/SGOT) 11 L Basophils # 0.0 Basophils % 0.2 Blood Urea Nitrogen 82 H Calcium Level 8.9 Carbon Dioxide Level 23 Chloride Level 109 # Creatinine 2.71 H Direct Bilirubin 0.00 Eosinophils # 0.1 Eosinophils % 0.6 Globulin 4.30 H Glucose Level 94 Hematocrit 29.9 L Hemoglobin 9.7 L Indirect Bilirubin 0.0 Lymphocytes # 0.6 L Lymphocytes % 6.3 L Magnesium Level 2.5 Mean Corpuscular Hemoglobin 29.4 Mean Corpuscular Hemoglobin Concent 32.6 Mean Corpuscular Volume 90.3 Mean Platelet Volume 7.5 Monocytes # 0.5 Monocytes % 6.0 Neutrophils # 7.6 H Neutrophils % 86.9 H Nucleated Red Blood Cells # 0.0 Nucleated Red Blood Cells % 0.0 Osmolality 317 H Platelet Count 266 Potassium Level 3.9 Prealbumin 12.1 L Red Blood Count 3.31 L Red Cell Distribution Width 13.7 Sodium Level 145 H Total Bilirubin 0.0 L Total Protein 7.1 White Blood Count 8.8 # Arterial Blood HCO3 18.9 L Arterial Blood Base Excess -6.9 L Arterial Blood Oxygen Saturation 92.6 L Julito Test N/A Arterial Blood Gas Puncture Site Right Radial Arterial Blood Carboxyhemoglobin 0.3 Arterial Blood Date Drawn 02/25/2016 3:32:32 PM Arterial Blood Methemoglobin 0 Arterial Blood pCO2 (Temp correct) 39.0 Arterial Blood pH (Temp corrected) 7.304 L Arterial Blood pO2 (Temp corrected) 65.6 L Blood Gas A-a O2 Differential 138.6 H Blood Gas Modality TRACH COLLAR Blood Gas Notified Time 02/25/2016 3:51:40 PM Blood Gas Notified Whom RT Blood Gas Specimen Source Blood arterial Blood Gas Temperature 37.0 FiO2 35.0 Oxyhemoglobin Percent 92.3 L Total Hemoglobin 10.1 L Medications Medications Current Medications Ondansetron HCl (Zofran Inj) 4 mg Q6H PRN IV NAUSEA AND/OR VOMITING; Start at 07:00 Acetaminophen (Tylenol Tab) 650 mg Q6H PRN PO PAIN LEVEL 1-3 OR FEVER Last administered on 02/25/16 08:41; Admin Dose 650 MG; Start 02/24/16 at 07:00 Morphine Sulfate (morphine) 2 mg Q4H PRN IV PAIN LEVEL 7-10 Last administered on 02/24/16 21:51; Admin Dose 2 MG; Start 02/24/16 at 07:00 Heparin Sodium (Porcine) (Heparin (5000 Units/0.5 ml)) 5,000 unit Q12 SC Last administered on 02/25/16 08:49; Admin Dose 5,000 UNIT; Start 02/24/16 at 09:00 Escitalopram Oxalate (Lexapro) 10 mg DAILY PO Last administered on 02/25/16 08 :41; Admin Dose 10 MG; Start 02/24/16 at 09:00 Magnesium Hydroxide (Milk Of Mag) 30 ml DAILY PRN PO CONSTIPATION; Start at 07:00 Multivitamins Therapeutic (Theragran) 1 tab DAILY PO Last administered on 08:41; Admin Dose 1 TAB; Start 02/24/16 at 09:00 Polyethylene Glycol (Miralax) 17 gm QHS PO ; Start 02/24/16 at 21:00 Risperidone 0.5 mg 0.5 mg BID PO Last administered on 02/25/16 08:41; Admin Dose 0.5 MG; Start 02/24/16 at 09:00 Cefepime HCl (Maxipime 1gm/50 ml (Pmx)) 50 ml @ 100 mls/hr Q12 IVPB Last administered on 02/25/16 15:56; Admin Dose 100 MLS/HR; Start 02/24/16 at 12:00 Hydromorphone HCl 0.5 mg 0.5 mg Q6H PRN IV pain Last administered on 02/25/16 16:11; Admin Dose 0.5 MG; Start 02/24/16 at 16:00 Sodium Chloride (1/2 NS) 1,000 ml @ 75 mls/hr [id number] IV Last administered on 02/25/16 17:54; Admin Dose 75 MLS/HR; Start 02/24/16 at 19:00 Influenza Virus Vaccine (Fluzone) 0.5 ml ONCE ONCE IM* ; Start 02/27/16 at 09:00 ; Stop 02/27/16 at 09:01 Acetaminophen/ Hydrocodone Bitart ([place] (5/325)) 1 tab Q4H PRN GTB pain; Start 02/25/16 at 12:00 Zinc Sulfate (Zinc Sulfate) 220 mg DAILY GTB ; Start 02/26/16 at 09:00 Miscellaneous Information 1 ONCE ONCE XX ; Start 02/26/16 at 05:00; Stop at 05:01 Phenylephrine HCl (Ozzy-Synephrine) 250 ml @ 75 mls/hr TITRATE IV ; Start at 15:00 IV Flush (NS 10 ml) 10 ml PRN PRN IV IV PROTOCOL; Start 02/25/16 at 15:30 BRIANDA HIRSCH MD Feb 25, 2016 18:59
[2016-02-25] MEDS: POLYETHYLENE GLYCOL 17 GM PACKET PO SCH (21:13)
[2016-02-26] VITALS (59 sets, daily range): BP systolic 74–120; BP diastolic 40–65; PULSE 91–115; RESP 14–26
[2016-02-26 05:06] LABS: EOSINOPHILS % 0.4 % (0.0-7.0); HEMATOCRIT 28.3 % (42.0-52.0); HEMOGLOBIN 9.1 g/dl (14.0-18.0); LYMPHOCYTES # 0.4 10^3/ul (0.8-2.9); LYMPHOCYTES % 4.5 % (15.0-51.0); MEAN CORPUSCULAR HEMOGLOBIN 29.5 pg (29.0-33.0); MEAN CORPUSCULAR HGB CONC 32.4 g/dl (32.0-37.0); MEAN CORPUSCULAR VOLUME 91.1 fl (82.0-101.0); MEAN PLATELET VOLUME 7.6 fl (7.4-10.4); MONOCYTE # 0.4 10^3/ul (0.3-0.9); MONOCYTES % 4.7 % (0.0-11.0); NEUTROPHIL # 7.8 10^3/ul (1.6-7.5); NEUTROPHILS % 90.4 % (39.0-77.0); PLATELET COUNT 256 10^3/UL (140-440); RED BLOOD COUNT 3.11 10^6/ul (4.70-6.10); RED CELL DISTRIBUTION WIDTH 13.9 % (11.5-14.5); UNCORRECTED WBC 8.6 10^3/ul (4.8-10.8); WHITE BLOOD COUNT 8.6 10^3/ul (4.8-10.8)
[2016-02-26 05:08] LABS: ALBUMIN 2.4 g/dl (3.3-4.9); POTASSIUM 3.6 mmol/L (3.5-5.1)
[2016-02-26 05:10] LABS: CREATININE 2.43 mg/dl (0.61-1.24)
[2016-02-26 05:11] LABS: ALBUMIN/GLOBULIN RATIO 0.66; CALCIUM 8.7 mg/dl (8.4-10.2)
[2016-02-26] MEDS: HYDROmorphONE 1 MG/ML SYG IV PRN ×3 (05:11→17:56)
[2016-02-26 05:15] LABS: CONDITION 1; LH ANALYZER COMMENTS 1
[2016-02-26] MEDS: SOD CHLORIDE 0.45% 1,000 ML IV SCH (08:11)
[2016-02-26 08:27] LABS: AADO2 Arterial 100.8 mmHg (7.0-24.0); Allen Test ACCEPTAB; Arterial Base Excess -12.5 mmol/L (-3.0-3); Arterial COHb 0.3 % (0.0-3.0); Arterial Fraction of Oxyhgb 94.3 % (93.0-99.0); Arterial HCO3 13.2 mmol/L (22.0-26.0); Arterial MetHb 0.1 % (0.0-1.5); Arterial Total Hemglobin 10.1 g/dl (12.0-18.0); MODE VENT - AC
[2016-02-26] MEDS: ESCITALOPRAM 10 MG TAB PO SCH (08:27)
[2016-02-26] MEDS: morphine 2 MG INJ IV PRN ×3 (08:27→20:54)
[2016-02-26] MEDS: RISPERIDONE 0.25 MG TAB PO SCH ×2 (08:27→20:54)
[2016-02-26] MEDS: ZINC SULFATE 220 MG CAP GTB SCH (08:27)
[2016-02-26] MEDS: MULTIVITAMINS THERAPEUTIC TAB PO SCH (08:27)
[2016-02-26] MEDS: HEPARIN 5,000 UNIT/0.5 ML SYG SC SCH ×2 (08:35→21:05)
[2016-02-26] MEDS: CEFEPIME 1GM/50 ML (PMX) 50 ML IVPB SCH ×2 (09:22→20:59)
[2016-02-26] MEDS: VANCOMYCIN 1.25 GM in SOD CHLORIDE 0.9% 250 ML IVPB SCH (11:21)
--- NOTE | 2016-02-26 11:35 | PN ---
DATE: 02/26/2016 SUBJECTIVE: The patient was transferred to ICU last night secondary to low blood pressure, currentl y alert, awake, in no distress. He is not on pressors and no fevers. VITAL SIGNS: Temperature 98.1, pulse 94, respirations 20, blood pressure 91/45, saturation 95 on ve nt. WBC 8.6, H and H 9.1 and 28.3, platelets 256, neutrophils 90.4. BUN 64, creatinine 2.53. MICROBIOLOGY: Blood culture grew staph species. Urine culture not sent, ordered yesterday and it s eems like it is in the process. INDWELLINGS: Trach, PEG, suprapubic catheter, PICC line placed on 02/25/2016, left upper extremity. ALLERGIES: NONE. ANTIMICROBIALS: 1. Cefepime. 2. Vancomycin. ASSESSMENT: 1. Sepsis secondary to urinary tract infection. 2. Staph bacteremia, possibly contaminated specimen. 3. Methicillin-resistant Staphylococcus aureus nares colonization. 4. Neurogenic bladder with suprapubic catheter. 5. History of C-spine injury with quadriplegia. 6. Chronic respiratory failure, remains on vent. PLAN: The patient is clinically stable. Blood pressure is low, but he is asymptomatic. He is cove red with broad spectrum antibiotics. Urine culture pending. We will add Bactroban to nares. Repea t blood cultures and await final workup. Dictated By: REGINALDO CHERY [employer]SEMBLER for ANTONELLA STEWART MD NI/NTS Conf#: [id number] DID#: [id number]
--- NOTE | 2016-02-26 12:55 | PN ---
DATE: 02/26/2016 PULMONARY FOLLOWUP SUBJECTIVE: Chart reviewed. Events noted. The patient remains on vent, currently saturating 100% and does not appear in acute distress. Blood pressure is somewhat more borderline; however, the pat ient is not requiring pressors at this time. PHYSICAL EXAMINATION: VITAL SIGNS: Blood pressure 91/45, pulse 100, respirations 22, temperature 98.1. HEENT: Pupils are equal and react to light. Anicteric sclerae. NECK: Supple, no JVD noted, no cervical adenopathy noted, no carotid bruits heard. Tracheostomy si te clear. LUNGS: Fair breath sounds bilaterally. CARDIOVASCULAR: S1, S2 normal. ABDOMEN: Soft, nontender. No organomegaly or masses noted. G-tube in place. EXTREMITIES: No clubbing or cyanosis noted. NEUROLOGICAL: Awake. LABORATORIES: WBC 8.6, hemoglobin 9.1, hematocrit 28.3, platelets 256. Sodium 146, potassium 3.6, chloride 113, CO2 15, BUN 64, creatinine 2.43, glucose 69. ABG shows pH of 7.26, pCO2 of 30, pO2 of 78. UA shows greater than 200 WBCs. IMPRESSION: 1. Ventilator-dependent respiratory failure, hypoxemic. 2. Urinary tract infection with sepsis. 3. Hypotensive shock, currently blood pressure marginal. 4. History of C-spine injury. 5. Dysphagia. RECOMMENDATIONS: 1. Continue vent support. 2. Continue antibiotics. 3. Followup cultures. 4. Nephrology evaluation. 5. Monitor blood pressure closely. Dictated By: ALESIA CH MD, MA/QUE Conf#: [id number] DID#: [id number]
[2016-02-26] MEDS ORDERED: NA BICARBONATE 8.4% 50 ML SYG IV ONE (13:30)
--- NOTE | 2016-02-26 13:50 | PN ---
Date/Time of Note Date/Time of Note DATE: 02/26/16 TIME: 13:48 Assessment/Plan VTE Prophylaxis VTE Prophylaxis Intervention: other Lines/Catheters IV Catheter Type (from Nrs): PICC Line Central line still needed: Yes Urinary Cath still in place: Yes (suprapubic catheter) Reason Cath still needed: skin wounds contaminated by urine Assessment/Plan Chief Complaint/Hosp Course 1) Sepsis. - per ID- Dr Maciel - lactic acid AM 2) Hypotension sec to sepsis - Transfer to icu - SEE ORDERS 3) Acute kidney injury - per nephrology 4) Underlying prerenal azotemia. 5) Underlying acute tubular necrosis due to sepsis. 6) Anion gap metabolic acidosis. 7) Hyponatremia. 8) Respiratory failure and tracheostomy. - Pulmonary consult appreciated- Dr Ames notified 9) Anemia. 10) Urinary tract infection. 11) Lung congestion, possible underlying pneumonia. 12) Paraplegia. Problems: Subjective 24 Hr Interval Summary Free Text/Dictation Patient has eyes open but not interactive, trach in place Exam/Review of Systems Vital Signs Vitals Vital Signs Date Time Temp Pulse Resp B/P Pulse Ox O2 Delivery O2 Flow Rate FiO2 02/26/16 13:12 114 26 96 30 02/26/16 11:30 87/46 02/26/16 11:00 Mechanical Ventilator 02/26/16 08:00 98.1 02/25/16 18:40 10.0 Intake and Output 02/25/16 02/25/16 02/26/16 15:00 23:00 07:00 Intake Total 1400 ml 425 ml 600 ml Output Total 435 ml 570 ml Balance 1400 ml -10 ml 30 ml Exam Constitutional: well developed Head: atraumatic, normocephalic Respiratory: diminished breath sounds Cardiovascular: regular rate and rhythm Gastrointestinal: non-tender, soft Results Result Diagram: 02/26/16 0400 02/26/16 0400 Results 24 hrs Laboratory Tests Test 02/25/16 15:29 02/26/16 04:00 02/26/16 07:00 Arterial Blood HCO3 18.9 L 13.2 L Arterial Blood Base Excess -6.9 L -12.5 L Arterial Blood Oxygen Saturation 92.6 L 94.7 L Julito Test N/A ACCEPTAB Arterial Blood Gas Puncture Site Right Radial Right Radial Arterial Blood Carboxyhemoglobin 0.3 0.3 Arterial Blood Date Drawn 02/25/2016 3:32:32 PM 02/26/2016 8:00:39 AM Arterial Blood Methemoglobin 0 0.1 Arterial Blood pCO2 (Temp correct) 39.0 29.6 L Arterial Blood pH (Temp corrected) 7.304 L 7.267 *L Arterial Blood pO2 (Temp corrected) 65.6 L 78.3 L Blood Gas A-a O2 Differential 138.6 H 100.8 H Blood Gas Modality TRACH COLLAR VENT - AC Blood Gas Notified Time 02/25/2016 3:51:40 PM 02/26/2016 8:27:07 AM Blood Gas Notified Whom RT JLD Blood Gas Specimen Source Blood arterial Blood arterial Blood Gas Temperature 37.0 37.0 FiO2 35.0 30.0 Oxyhemoglobin Percent 92.3 L 94.3 Total Hemoglobin 10.1 L 10.1 L Alanine Aminotransferase (ALT/SGPT) 18 Albumin 2.4 L Albumin/Globulin Ratio 0.66 Alkaline Phosphatase 151 H Anion Gap 22 H Aspartate Amino Transf (AST/SGOT) 9 L Basophils # 0.0 Basophils % 0.0 Blood Urea Nitrogen 64 H Calcium Level 8.7 Carbon Dioxide Level 15 L Chloride Level 113 H Creatinine 2.43 H Direct Bilirubin 0.00 Eosinophils # 0.0 Eosinophils % 0.4 Globulin 3.60 H Glucose Level 69 #L Hematocrit 28.3 L Hemoglobin 9.1 L Indirect Bilirubin 0.0 Lactic Acid Level 0.5 Lymphocytes # 0.4 L Lymphocytes % 4.5 L Mean Corpuscular Hemoglobin 29.5 Mean Corpuscular Hemoglobin Concent 32.4 Mean Corpuscular Volume 91.1 Mean Platelet Volume 7.6 Monocytes # 0.4 Monocytes % 4.7 Neutrophils # 7.8 H Neutrophils % 90.4 H Nucleated Red Blood Cells # 0.0 Nucleated Red Blood Cells % 0.0 Platelet Count 256 Potassium Level 3.6 Random Vancomycin Level 8.9 Red Blood Count 3.11 L Red Cell Distribution Width 13.9 Sodium Level 146 H Total Bilirubin 0.0 L Total Protein 6.0 #L White Blood Count 8.6 Blood Gas Actual Respiration Rate 20 Blood Gas Critical Value Read Back Y STONE RN Blood Gas Low PEEP Setting 5.0 Blood Gas Respiration Rate 14.0 Blood Gas Tidal Volume 550.0 Medications Medications Current Medications Ondansetron HCl (Zofran Inj) 4 mg Q6H PRN IV NAUSEA AND/OR VOMITING; Start at 07:00 Acetaminophen (Tylenol Tab) 650 mg Q6H PRN PO PAIN LEVEL 1-3 OR FEVER Last administered on 02/25/16 08:41; Admin Dose 650 MG; Start 02/24/16 at 07:00 Morphine Sulfate (morphine) 2 mg Q4H PRN IV PAIN LEVEL 7-10 Last administered on 02/26/16 08:27; Admin Dose 2 MG; Start 02/24/16 at 07:00 Heparin Sodium (Porcine) (Heparin (5000 Units/0.5 ml)) 5,000 unit Q12 SC Last administered on 02/26/16 08:35; Admin Dose 5,000 UNIT; Start 02/24/16 at 09:00 Escitalopram Oxalate (Lexapro) 10 mg DAILY PO Last administered on 02/26/16 08 :27; Admin Dose 10 MG; Start 02/24/16 at 09:00 Magnesium Hydroxide (Milk Of Mag) 30 ml DAILY PRN PO CONSTIPATION; Start at 07:00 Multivitamins Therapeutic (Theragran) 1 tab DAILY PO Last administered on 08:27; Admin Dose 1 TAB; Start 02/24/16 at 09:00 Polyethylene Glycol (Miralax) 17 gm QHS PO Last administered on 02/25/16 21:13 ; Admin Dose 17 GM; Start 02/24/16 at 21:00 Risperidone 0.5 mg 0.5 mg BID PO Last administered on 02/26/16 08:27; Admin Dose 0.5 MG; Start 02/24/16 at 09:00 Cefepime HCl (Maxipime 1gm/50 ml (Pmx)) 50 ml @ 100 mls/hr Q12 IVPB Last administered on 02/26/16 09:22; Admin Dose 100 MLS/HR; Start 02/24/16 at 12:00 Hydromorphone HCl 0.5 mg 0.5 mg Q6H PRN IV pain Last administered on 02/26/16 11:56; Admin Dose 0.5 MG; Start 02/24/16 at 16:00 Sodium Chloride (1/2 NS) 1,000 ml @ 75 mls/hr [id number] IV Last administered on 02/26/16 08:11; Admin Dose 75 MLS/HR; Start 02/24/16 at 19:00 Influenza Virus Vaccine (Fluzone) 0.5 ml ONCE ONCE IM* ; Start 02/27/16 at 09:00 ; Stop 02/27/16 at 09:01 Acetaminophen/ Hydrocodone Bitart ([place] (5/325)) 1 tab Q4H PRN GTB pain; Start 02/25/16 at 12:00 Zinc Sulfate 220 mg 220 mg DAILY GTB Last administered on 02/26/16 08:27; Admin Dose 220 MG; Start 02/26/16 at 09:00 Phenylephrine HCl (Ozzy-Synephrine) 250 ml @ 75 mls/hr TITRATE IV ; Start at 15:00 IV Flush 10 ml 10 ml PRN PRN IV IV PROTOCOL; Start 02/25/16 at 15:30 Vancomycin HCl/ Sodium Chloride (Vancocin/NS) 250 ml @ 83.333 mls/ hr Q48H IVPB Last administered on 02/26/16 11:21; Admin Dose 83.333 MLS/HR; Start at 11:30 DANAY MUIR Feb 26, 2016 13:50
--- NOTE | 2016-02-26 14:29 | PN ---
DATE: 02/26/2016 The patient is in ICU, he is on ventilator support, ____ tracheostomy. He is awake, responsive, able to communicate. PHYSICAL EXAMINATION: VITAL SIGNS: His vital signs this morning shows blood pressure 89/46, temperature 98.4. The pulse ra te was 91, respirations 19, pulse oximetry 96% saturation. HEENT: Tracheostic regions are clear. No bleeding is seen. HEART: Regular rhythm. CHEST: Breath sounds are heard bilaterally. There is more diminution in the lower lung tierney, other ribeiro clear. ABDOMEN: Soft, mildly distended. Bowel sounds were present. EXTREMITIES: Show no edema. He is paraplegic. LABORATORY DATA: Lab tests from today shows WBC 8,600, hemoglobin 9.1, hematocrit 28.3, platelets wi thin normal limits. The chemistry panel from today shows sodium 146, potassium 3.6, BUN is 64, creatinine 2.4, leuko 69, albumin is low at 2.4. Lactic acid level is 0.5. The optimal blood gases from today shows a ____ 0.26, ____ 29, PO2 78 on 30% oxygen with a rate of 1 4 on ____ . The cultures ____ show a growth of streptococcus in blood cultures, exact identification is later. IMPRESSION 1. Urosepsis. 2. Chronic ventilatory dependent respiratory failure. 3. Metabolic acidosis. 4. Chronic anemia. 5. Chronic kidney disease with acute kidney injury. 6. History of spinal cord injury with paraplegia. 7. Status post ____ . 8. Status post gastrostomy for dysphagia. RECOMMENDATIONS 1. Continue long-term ventilatory support. The patient is known to be ventilatory dependent. Previo us attempts at weaning him have been unsuccessful. 2. Continue antibiotics as per infectious disease philatelic consultant. 3. Continue hydration. 4. Continue deep vein thrombosis and GI prophylaxis. 5. Sodium bicarbonate ____ . 6. If the patient's head can be held up he can be started on oral feedings for oral gratification a nd tube feedings may be started. Dictated By: HUMBERTO PEREZ MD SR/NTS Conf#: [id number] DID#: [id number]
[2016-02-26] MEDS: MUPIROCIN 2% 22 GM OINT TOP SCH (18:42)
[2016-02-26] MEDS: ZOLPIDEM 5 MG TAB PO PRN (20:54)
[2016-02-26] MEDS: POLYETHYLENE GLYCOL 17 GM PACKET PO SCH (20:54)
--- NOTE | 2016-02-26 20:56 | CONS ---
Date/Time of Note Date/Time of Note DATE: 02/26/16 TIME: 20:55 Assessment/Plan Assessment/Plan Chief Complaint/Hosp Course IMPRESSION: The patient has: 1. Acute kidney injury.better 2. Sepsis. 3. Underlying prerenal azotemia. 4. Underlying acute tubular necrosis due to sepsis. 5. Anion gap metabolic acidosis. 6. Hyponatremia. 7. Leukocytosis. 8. Anemia. 9. Urinary tract infection. 10. Lung congestion, possible underlying pneumonia. 11. Paraplegia. 12. Respiratory failure and tracheostomy. 13. Incomplete database. plan iv fluid ck labs renal stable Problems: Consultation Date/Type/Reason Admit Date/Time Feb 24, 2016 at 05:06 Type of Consultation: RENAL 24 HR Interval Summary Subjective hx not possible: pt non-verbal Exam/Review of Systems Vital Signs Vitals Vital Signs Date Time Temp Pulse Resp B/P Pulse Ox O2 Delivery O2 Flow Rate FiO2 02/26/16 20:00 97.6 96 20 86/41 98 Mechanical Ventilator 02/26/16 19:25 30 02/25/16 18:40 10.0 Intake and Output 02/25/16 02/25/16 02/26/16 14:59 22:59 06:59 Intake Total 1475 ml 300 ml 725 ml Output Total 435 ml 520 ml Balance 1475 ml -135 ml 205 ml Exam Neck: supple Respiratory: diminished breath sounds Cardiovascular: regular rate and rhythm Gastrointestinal: bowel sounds (+), soft Musculoskeletal: nl extremities to inspection Results Result Diagram: 02/26/16 0400 02/26/16 0400 Results 24 hrs Laboratory Tests Test 02/26/16 04:00 02/26/16 07:00 Alanine Aminotransferase (ALT/SGPT) 18 Albumin 2.4 L Albumin/Globulin Ratio 0.66 Alkaline Phosphatase 151 H Anion Gap 22 H Aspartate Amino Transf (AST/SGOT) 9 L Basophils # 0.0 Basophils % 0.0 Blood Urea Nitrogen 64 H Calcium Level 8.7 Carbon Dioxide Level 15 L Chloride Level 113 H Creatinine 2.43 H Direct Bilirubin 0.00 Eosinophils # 0.0 Eosinophils % 0.4 Globulin 3.60 H Glucose Level 69 #L Hematocrit 28.3 L Hemoglobin 9.1 L Indirect Bilirubin 0.0 Lactic Acid Level 0.5 Lymphocytes # 0.4 L Lymphocytes % 4.5 L Mean Corpuscular Hemoglobin 29.5 Mean Corpuscular Hemoglobin Concent 32.4 Mean Corpuscular Volume 91.1 Mean Platelet Volume 7.6 Monocytes # 0.4 Monocytes % 4.7 Neutrophils # 7.8 H Neutrophils % 90.4 H Nucleated Red Blood Cells # 0.0 Nucleated Red Blood Cells % 0.0 Platelet Count 256 Potassium Level 3.6 Random Vancomycin Level 8.9 Red Blood Count 3.11 L Red Cell Distribution Width 13.9 Sodium Level 146 H Total Bilirubin 0.0 L Total Protein 6.0 #L White Blood Count 8.6 Arterial Blood HCO3 13.2 L Arterial Blood Base Excess -12.5 L Arterial Blood Oxygen Saturation 94.7 L Julito Test ACCEPTAB Arterial Blood Gas Puncture Site Right Radial Arterial Blood Carboxyhemoglobin 0.3 Arterial Blood Date Drawn 02/26/2016 8:00:39 AM Arterial Blood Methemoglobin 0.1 Arterial Blood pCO2 (Temp correct) 29.6 L Arterial Blood pH (Temp corrected) 7.267 *L Arterial Blood pO2 (Temp corrected) 78.3 L Blood Gas A-a O2 Differential 100.8 H Blood Gas Actual Respiration Rate 20 Blood Gas Critical Value Read Back Y STONE RN Blood Gas Low PEEP Setting 5.0 Blood Gas Modality VENT - AC Blood Gas Notified Time 02/26/2016 8:27:07 AM Blood Gas Notified Whom JLD Blood Gas Respiration Rate 14.0 Blood Gas Specimen Source Blood arterial Blood Gas Temperature 37.0 Blood Gas Tidal Volume 550.0 FiO2 30.0 Oxyhemoglobin Percent 94.3 Total Hemoglobin 10.1 L Medications Medications Current Medications Ondansetron HCl (Zofran Inj) 4 mg Q6H PRN IV NAUSEA AND/OR VOMITING; Start at 07:00 Acetaminophen (Tylenol Tab) 650 mg Q6H PRN PO PAIN LEVEL 1-3 OR FEVER Last administered on 02/25/16 08:41; Admin Dose 650 MG; Start 02/24/16 at 07:00 Morphine Sulfate (morphine) 2 mg Q4H PRN IV PAIN LEVEL 7-10 Last administered on 02/26/16 14:24; Admin Dose 2 MG; Start 02/24/16 at 07:00 Heparin Sodium (Porcine) (Heparin (5000 Units/0.5 ml)) 5,000 unit Q12 SC Last administered on 02/26/16 08:35; Admin Dose 5,000 UNIT; Start 02/24/16 at 09:00 Escitalopram Oxalate (Lexapro) 10 mg DAILY PO Last administered on 02/26/16 08 :27; Admin Dose 10 MG; Start 02/24/16 at 09:00 Magnesium Hydroxide (Milk Of Mag) 30 ml DAILY PRN PO CONSTIPATION; Start at 07:00 Multivitamins Therapeutic (Theragran) 1 tab DAILY PO Last administered on 08:27; Admin Dose 1 TAB; Start 02/24/16 at 09:00 Polyethylene Glycol (Miralax) 17 gm QHS PO Last administered on 02/25/16 21:13 ; Admin Dose 17 GM; Start 02/24/16 at 21:00 Risperidone 0.5 mg 0.5 mg BID PO Last administered on 02/26/16 08:27; Admin Dose 0.5 MG; Start 02/24/16 at 09:00 Cefepime HCl (Maxipime 1gm/50 ml (Pmx)) 50 ml @ 100 mls/hr Q12 IVPB Last administered on 02/26/16 09:22; Admin Dose 100 MLS/HR; Start 02/24/16 at 12:00 Hydromorphone HCl 0.5 mg 0.5 mg Q6H PRN IV pain Last administered on 02/26/16 17:56; Admin Dose 0.5 MG; Start 02/24/16 at 16:00 Sodium Chloride (1/2 NS) 1,000 ml @ 75 mls/hr [id number] IV Last administered on 02/26/16 08:11; Admin Dose 75 MLS/HR; Start 02/24/16 at 19:00 Influenza Virus Vaccine (Fluzone) 0.5 ml ONCE ONCE IM* ; Start 02/27/16 at 09:00 ; Stop 02/27/16 at 09:01 Acetaminophen/ Hydrocodone Bitart ([place] (5/325)) 1 tab Q4H PRN GTB pain; Start 02/25/16 at 12:00 Zinc Sulfate 220 mg 220 mg DAILY GTB Last administered on 02/26/16 08:27; Admin Dose 220 MG; Start 02/26/16 at 09:00 Phenylephrine HCl (Ozzy-Synephrine) 250 ml @ 75 mls/hr TITRATE IV ; Start at 15:00 IV Flush 10 ml 10 ml PRN PRN IV IV PROTOCOL; Start 02/25/16 at 15:30 Vancomycin HCl/ Sodium Chloride (Vancocin/NS) 250 ml @ 83.333 mls/ hr Q48H IVPB Last administered on 02/26/16 11:21; Admin Dose 83.333 MLS/HR; Start at 11:30 Mupirocin (Bactroban) 1 applic BID TOP Last administered on 02/26/16 18:42; Admin Dose 1 APPLIC; Start 02/26/16 at 18:30 BRIANDA HIRSCH MD Feb 26, 2016 20:56
[2016-02-27] VITALS (95 sets, daily range): BP systolic 65–118; BP diastolic 39–79; PULSE 70–122; RESP 15–30
[2016-02-27] MEDS: SOD CHLORIDE 0.45% 1,000 ML IV SCH (01:08)
[2016-02-27] MEDS: PHENYLephrine 20MG IN 250 ML 250 ML IV SCH ×2 (01:50→10:42)
[2016-02-27] MEDS: HYDROCODONE/APAP (5/325) TAB GTB PRN ×3 (03:58→20:10)
[2016-02-27 06:11] LABS: POTASSIUM 3.4 mmol/L (3.5-5.1)
[2016-02-27 06:14] LABS: CREATININE 2.23 mg/dl (0.61-1.24)
[2016-02-27 06:29] LABS: CREATININE 2.29 mg/dl (0.61-1.24)
[2016-02-27] MEDS ORDERED: DEXTROSE 5%-0.45% NACL 1,000 ML IV SCH (07:00)
[2016-02-27] MEDS ORDERED: DEXTROSE 50% 50 ML SYRINGE IV PRN (07:00)
[2016-02-27] MEDS ORDERED: DEXTROSE 50% 50 ML SYRINGE ONE (07:18)
[2016-02-27] MEDS: INFLUENZA VIRUS VACCINE 0.5 ML (DISPENSING) IM* ONE ×2 (09:00→12:17)
[2016-02-27] MEDS: CEFEPIME 1GM/50 ML (PMX) 50 ML IVPB SCH (09:40)
[2016-02-27] MEDS: ESCITALOPRAM 10 MG TAB PO SCH (09:41)
[2016-02-27] MEDS: RISPERIDONE 0.25 MG TAB PO SCH ×2 (09:41→20:11)
[2016-02-27] MEDS: MUPIROCIN 2% 22 GM OINT TOP SCH ×2 (09:41→20:45)
[2016-02-27] MEDS: ZINC SULFATE 220 MG CAP GTB SCH (09:41)
[2016-02-27] MEDS: HEPARIN 5,000 UNIT/0.5 ML SYG SC SCH ×2 (09:42→20:15)
[2016-02-27] MEDS: MULTIVITAMINS THERAPEUTIC TAB PO SCH (09:42)
--- NOTE | 2016-02-27 09:58 | PN ---
Date/Time of Note Date/Time of Note DATE: 02/27/16 TIME: 09:58 Assessment/Plan VTE Prophylaxis VTE Prophylaxis Intervention: other Lines/Catheters IV Catheter Type (from Nrs): PICC Line Central line still needed: Yes Urinary Cath still in place: Yes Reason Cath still needed: skin wounds contaminated by urine Assessment/Plan Chief Complaint/Hosp Course 1) Sepsis. - per ID- Dr Maciel - lactic acid AM 2) Hypotension sec to sepsis - Transfer to icu - SEE ORDERS 3) Acute kidney injury - per nephrology 4) Underlying prerenal azotemia. 5) Underlying acute tubular necrosis due to sepsis. 6) Anion gap metabolic acidosis. 7) Hyponatremia. 8) Respiratory failure and tracheostomy. - Pulmonary consult appreciated- Dr Ames notified 9) Anemia. 10) Urinary tract infection. 11) Lung congestion, possible underlying pneumonia. 12) Paraplegia. Problems: Subjective 24 Hr Interval Summary Free Text/Dictation Patient has eyes open, on ventilator via trach Exam/Review of Systems Vital Signs Vitals Vital Signs Date Time Temp Pulse Resp B/P Pulse Ox O2 Delivery O2 Flow Rate FiO2 02/27/16 05:23 107 23 96 30 02/27/16 05:15 73/43 Mechanical Ventilator Trach Collar 02/27/16 04:00 98.3 02/25/16 18:40 10.0 Intake and Output 02/26/16 02/26/16 02/27/16 15:00 23:00 07:00 Intake Total 325 ml 1150 ml 570.0 ml Output Total 240 ml 1050 ml 350 ml Balance 85 ml 100 ml 220.0 ml Exam Constitutional: well developed Head: atraumatic, normocephalic Neck: supple Respiratory: diminished breath sounds Cardiovascular: regular rate and rhythm Gastrointestinal: non-tender, soft Extremities: normal pulses Results Result Diagram: 02/26/16 0400 02/27/16 0430 Results 24 hrs Laboratory Tests Test 02/27/16 04:30 02/27/16 06:50 Anion Gap 21 H Blood Urea Nitrogen 52 H Calcium Level 8.0 L Carbon Dioxide Level 11 L Chloride Level 112 H Creatinine 2.23 H Glucose Level 47 #*L Potassium Level 3.4 L Sodium Level 141 Bedside Glucose 57 L Medications Medications Current Medications Ondansetron HCl (Zofran Inj) 4 mg Q6H PRN IV NAUSEA AND/OR VOMITING; Start at 07:00 Acetaminophen (Tylenol Tab) 650 mg Q6H PRN PO PAIN LEVEL 1-3 OR FEVER Last administered on 02/25/16 08:41; Admin Dose 650 MG; Start 02/24/16 at 07:00 Morphine Sulfate (morphine) 2 mg Q4H PRN IV PAIN LEVEL 7-10 Last administered on 02/26/16 20:54; Admin Dose 2 MG; Start 02/24/16 at 07:00 Heparin Sodium (Porcine) (Heparin (5000 Units/0.5 ml)) 5,000 unit Q12 SC Last administered on 02/27/16 09:42; Admin Dose 5,000 UNIT; Start 02/24/16 at 09:00 Escitalopram Oxalate (Lexapro) 10 mg DAILY PO Last administered on 02/27/16 09 :41; Admin Dose 10 MG; Start 02/24/16 at 09:00 Magnesium Hydroxide (Milk Of Mag) 30 ml DAILY PRN PO CONSTIPATION; Start at 07:00 Multivitamins Therapeutic (Theragran) 1 tab DAILY PO Last administered on 09:42; Admin Dose 1 TAB; Start 02/24/16 at 09:00 Polyethylene Glycol (Miralax) 17 gm QHS PO Last administered on 02/26/16 20:54 ; Admin Dose 17 GM; Start 02/24/16 at 21:00 Risperidone 0.5 mg 0.5 mg BID PO Last administered on 02/27/16 09:41; Admin Dose 0.5 MG; Start 02/24/16 at 09:00 Cefepime HCl (Maxipime 1gm/50 ml (Pmx)) 50 ml @ 100 mls/hr Q12 IVPB Last administered on 02/27/16 09:40; Admin Dose 100 MLS/HR; Start 02/24/16 at 12:00 Hydromorphone HCl (Dilaudid) 0.5 mg Q6H PRN IV pain Last administered on 17:56; Admin Dose 0.5 MG; Start 02/24/16 at 16:00 Acetaminophen/ Hydrocodone Bitart ([place] (5/325)) 1 tab Q4H PRN GTB pain Last administered on 02/27/16 03:58; Admin Dose 1 TAB; Start 02/25/16 at 12:00 Zinc Sulfate 220 mg 220 mg DAILY GTB Last administered on 02/27/16 09:41; Admin Dose 220 MG; Start 02/26/16 at 09:00 Phenylephrine HCl (Ozzy-Synephrine) 250 ml @ 75 mls/hr TITRATE IV Last administered on 02/27/16 01:50; Admin Dose 37.5 MLS/HR; Start 02/25/16 at 15:00 IV Flush 10 ml 10 ml PRN PRN IV IV PROTOCOL; Start 02/25/16 at 15:30 Vancomycin HCl/ Sodium Chloride (Vancocin/NS) 250 ml @ 83.333 mls/ hr Q48H IVPB Last administered on 02/26/16 11:21; Admin Dose 83.333 MLS/HR; Start at 11:30 Mupirocin (Bactroban) 1 applic BID TOP Last administered on 02/27/16 09:41; Admin Dose 1 APPLIC; Start 02/26/16 at 18:30 Dextrose 50 ml 50 ml PRN PRN IV DECREASED GLUCOSE Last administered on 07:21; Admin Dose 50 ML; Start 02/27/16 at 07:00 Dextrose/Sodium Chloride (D5-1/2ns) 1,000 ml @ 75 mls/hr [id number] IV Last administered on 02/27/16 07:21; Admin Dose 75 MLS/HR; Start 02/27/16 at 07:00 DANAY MUIR Feb 27, 2016 09:58
[2016-02-27] MEDS ORDERED: POTASSIUM CHLORIDE 50 ML IVPB ONE (10:00)
[2016-02-27] MEDS ORDERED: SODIUM BICARBONATE (IV ADD) 100 MEQ in DEXTROSE 5% 1,000 ML IV SCH (10:00)
--- NOTE | 2016-02-27 10:06 | CONS ---
Date/Time of Note Date/Time of Note DATE: 02/27/16 TIME: 10:02 Assessment/Plan Assessment/Plan Additional Assessment/Plan 1) Sepsis. 2) Hypotension sec to sepsis 3) Acute kidney injury 2/2 ATN+ prerenal azotemia 4) severe metabolic acidosis anion gap 5) Hyponatremia. 8) Respiratory failure and tracheostomy. 9 Paraplegia. Plan: D/c current IVF D51/2 NS start D5W with 2 ampoule of sodium bicarbonate KCL 20mEQ IV x 1 dose now will follow up Consultation Date/Type/Reason Admit Date/Time Feb 24, 2016 at 05:06 Initial Consult Date Type of Consultation: NEPHROLOGY Referring Provider: JOSÉ ANTONIO MIRZA MD 24 HR Interval Summary Free Text/Dictation pt BP has been dropped to systolic 60mm Hg, afebrile, Exam/Review of Systems Vital Signs Vitals Vital Signs Date Time Temp Pulse Resp B/P Pulse Ox O2 Delivery O2 Flow Rate FiO2 02/27/16 05:23 107 23 96 30 02/27/16 05:15 73/43 Mechanical Ventilator Trach Collar 02/27/16 04:00 98.3 02/25/16 18:40 10.0 Intake and Output 02/26/16 02/26/16 02/27/16 15:00 23:00 07:00 Intake Total 325 ml 1150 ml 570.0 ml Output Total 240 ml 1050 ml 350 ml Balance 85 ml 100 ml 220.0 ml Exam alert, awake + tracheostomy Bilateral Coarse BS+ S1 S2 tachycardia + g tube + starkey catheter Results Result Diagram: 02/26/16 0400 02/27/16 0430 Results 24 hrs Laboratory Tests Test 02/27/16 04:30 02/27/16 06:50 Anion Gap 21 H Blood Urea Nitrogen 52 H Calcium Level 8.0 L Carbon Dioxide Level 11 L Chloride Level 112 H Creatinine 2.23 H Glucose Level 47 #*L Potassium Level 3.4 L Sodium Level 141 Bedside Glucose 57 L Medications Medications Current Medications Ondansetron HCl (Zofran Inj) 4 mg Q6H PRN IV NAUSEA AND/OR VOMITING; Start at 07:00 Acetaminophen (Tylenol Tab) 650 mg Q6H PRN PO PAIN LEVEL 1-3 OR FEVER Last administered on 02/25/16t 08:41; Admin Dose 650 MG; Start 02/24/16 at 07:00 Morphine Sulfate (morphine) 2 mg Q4H PRN IV PAIN LEVEL 7-10 Last administered on 02/26/16 20:54; Admin Dose 2 MG; Start 02/24/16 at 07:00 Heparin Sodium (Porcine) (Heparin (5000 Units/0.5 ml)) 5,000 unit Q12 SC Last administered on 02/27/16 09:42; Admin Dose 5,000 UNIT; Start 02/24/16 at 09:00 Escitalopram Oxalate (Lexapro) 10 mg DAILY PO Last administered on 02/27/16 09 :41; Admin Dose 10 MG; Start 02/24/16 at 09:00 Magnesium Hydroxide (Milk Of Mag) 30 ml DAILY PRN PO CONSTIPATION; Start at 07:00 Multivitamins Therapeutic (Theragran) 1 tab DAILY PO Last administered on 09:42; Admin Dose 1 TAB; Start 02/24/16 at 09:00 Polyethylene Glycol (Miralax) 17 gm QHS PO Last administered on 02/26/16 20:54 ; Admin Dose 17 GM; Start 02/24/16 at 21:00 Risperidone 0.5 mg 0.5 mg BID PO Last administered on 02/27/16 09:41; Admin Dose 0.5 MG; Start 02/24/16 at 09:00 Cefepime HCl (Maxipime 1gm/50 ml (Pmx)) 50 ml @ 100 mls/hr Q12 IVPB Last administered on 02/27/16 09:40; Admin Dose 100 MLS/HR; Start 02/24/16 at 12:00 Hydromorphone HCl (Dilaudid) 0.5 mg Q6H PRN IV pain Last administered on 17:56; Admin Dose 0.5 MG; Start 02/24/16 at 16:00 Acetaminophen/ Hydrocodone Bitart ([place] (5/325)) 1 tab Q4H PRN GTB pain Last administered on 02/27/16 03:58; Admin Dose 1 TAB; Start 02/25/16 at 12:00 Zinc Sulfate 220 mg 220 mg DAILY GTB Last administered on 02/27/16 09:41; Admin Dose 220 MG; Start 02/26/16 at 09:00 Phenylephrine HCl (Ozzy-Synephrine) 250 ml @ 75 mls/hr TITRATE IV Last administered on 02/27/16 01:50; Admin Dose 37.5 MLS/HR; Start 02/25/16 at 15:00 IV Flush 10 ml 10 ml PRN PRN IV IV PROTOCOL; Start 02/25/16 at 15:30 Vancomycin HCl/ Sodium Chloride (Vancocin/NS) 250 ml @ 83.333 mls/ hr Q48H IVPB Last administered on 02/26/16 11:21; Admin Dose 83.333 MLS/HR; Start at 11:30 Mupirocin (Bactroban) 1 applic BID TOP Last administered on 02/27/16 09:41; Admin Dose 1 APPLIC; Start 02/26/16 at 18:30 Dextrose 50 ml 50 ml PRN PRN IV DECREASED GLUCOSE Last administered on 07:21; Admin Dose 50 ML; Start 02/27/16 at 07:00 Dextrose/Sodium Chloride (D5-1/2ns) 1,000 ml @ 75 mls/hr [id number] IV Last administered on 02/27/16 07:21; Admin Dose 75 MLS/HR; Start 02/27/16 at 07:00 TIARA CISNEROS MD Feb 27, 2016 10:06
[2016-02-27] MEDS ORDERED: NA BICARBONATE 8.4% 50 ML SYG ONE (10:09)
[2016-02-27] MEDS ORDERED: NA BICARBONATE 4.2% INFANT SYG IV* ONE (10:30)
[2016-02-27] MEDS ORDERED: NA BICARBONATE 8.4% 50 ML SYG IV ONE (10:30)
[2016-02-27] MEDS: HYDROmorphONE 1 MG/ML SYG IV PRN ×2 (10:32→21:44)
[2016-02-27] MEDS ORDERED: KCL 20 MEQ in NS 100 ML IV ONE (12:00)
[2016-02-27] MEDS: ONDANSETRON 4 MG INJ IV PRN (12:46)
[2016-02-27] MEDS: SODIUM BICARBONATE (IV ADD) 100 MEQ in DEXTROSE 5% 1,000 ML IV SCH (12:46)
[2016-02-27] MEDS: GLYCOPYRROLATE 1 MG TAB GTB SCH ×2 (13:00→20:11)
--- NOTE | 2016-02-27 16:36 | PN ---
DATE: 02/27/2016 The patient is in ICU. The vital signs are stable. He is on Ozzy-Synephrine drip. He is also on la chanical support. The high blood pressure is 92/51, his pulse rate is 102, temperature normal. Puls e oximetry shows 95% saturation. HEENT: Tracheal secretions are clear. No bleeding is seen. HEART: Sinus tachycardia. CHEST: Breath sounds are heard bilaterally diminished in both lower lung tierney. ____few ____ rales and rhonchi. ABDOMEN: Tolerating gastrostomy tube feedings. Bowel sounds are present. No distention is seen. EXTREMITIES: Show paraplegia. The labs results show WBC 8600, hemoglobin 9.1, hematocrit 28.3, platelets are within normal limits. The chemistry panel from today shows glucose 47, sodium 141, potassium 3.4, bicarbonate of 11. BU N of 52, creatinine is 2.23. BUN and creatinine are gradually improving. He is on bicarbonate drip . He is also on Ozzy-Synephrine drip to maintain his blood pressure. IMPRESSION: 1. Septic shock. 2. Urosepsis. 3. Chronic respiratory failure with vent dependent. 4. Metabolic acidosis. 5. Chronic anemia. 6. Chronic kidney disease with acute kidney injury. 7. History of spinal cord injury with paraplegia. 8. Status post ____ 9. Status post gastrostomy for dysphagia. RECOMMENDATIONS: 1. Continue long-term ventilator support. 2. Continue antibiotics per infectious disease instructional systems design consultant. 3. Continue hydration. 4. Continue deep venous thrombosis and GI prophylaxis. Dictated By: HUMBERTO PEREZ MD, SR/QUE Conf#: [id number] DID#: [id number]
[2016-02-27] MEDS ORDERED: FLUCONAZOLE 100 MG TAB PO ONE (17:00)
[2016-02-27 18:06] LABS: POTASSIUM 3.3 mmol/L (3.5-5.1)
[2016-02-27 18:09] LABS: CALCIUM 8.5 mg/dl (8.4-10.2); CREATININE 2.37 mg/dl (0.61-1.24)
[2016-02-27] MEDS: MEROPENEM 500 MG in SOD CHLORIDE 0.9% 100 ML IVPB SCH (20:11)
[2016-02-27] MEDS: POLYETHYLENE GLYCOL 17 GM PACKET PO SCH (20:17)
[2016-02-27] MEDS: ZOLPIDEM 5 MG TAB PO PRN (20:52)
--- NOTE | 2016-02-27 23:36 | RADRPT ---
PROCEDURE: Renal US. CLINICAL INDICATION: Renal failure. TECHNIQUE: Multiple sonographic images of the kidneys were obtained. The images were reviewed on a PACS workstation. COMPARISON: 05/01/2015. FINDINGS: The patient is status post right nephrectomy. The left kidney is enlarged measuring 15.1 x 9.8 x 9. 2 cm and demonstrates increased cortical echogenicity. There are multiple left renal cysts with the largest measuring 5.3 x 4.0 x 4.8 cm within the mid kidney with internal echogenic debris. There are multiple echogenic calculi measuring up to 2 cm. There is no evidence for obstructive uropathy. A suprapubic catheter is present. IMPRESSION: Multiple left renal cysts with the largest measuring 5.3 cm with internal echogenic debris. Increased left renal cortical echogenicity consistent with medical renal disease. Multiple left renal calculi. Status post right nephrectomy. .Hudson Waddell MD, Date Time Electronically viewed and signed by .Hudson Waddell MD, MD on 02/27/2016 23:36 .T/
[2016-02-27] MEDS: PHENYLephrine 40 MG in DEXTROSE 5% 496 ML IV SCH (23:51)
[2016-02-28] VITALS (90 sets, daily range): BP systolic 80–119; BP diastolic 42–79; PULSE 65–111; RESP 14–25
[2016-02-28] MEDS: SODIUM BICARBONATE (IV ADD) 100 MEQ in DEXTROSE 5% 1,000 ML IV SCH ×2
[2016-02-28] MEDS: morphine 2 MG INJ IV PRN ×2 (06:26→15:00)
[2016-02-28] MEDS: PANTOPRAZOLE 40 MG INJ IV SCH (06:27)
[2016-02-28 07:55] LABS: POTASSIUM 3.3 mmol/L (3.5-5.1)
[2016-02-28 07:56] LABS: INR 1.12; PARTIAL THROMBOPLASTIN TIME 35.2 Sec (25.0-35.0); PROTIME 14.4 Sec (12.2-14.2); PT RATIO 1.1
[2016-02-28 07:57] LABS: CREATININE 2.13 mg/dl (0.61-1.24)
[2016-02-28 07:58] LABS: CALCIUM 8.3 mg/dl (8.4-10.2)
[2016-02-28] MEDS: HYDROmorphONE 1 MG/ML SYG IV PRN ×2 (08:39→17:16)
[2016-02-28] MEDS: GLYCOPYRROLATE 1 MG TAB GTB SCH ×3 (09:46→20:40)
[2016-02-28] MEDS: FLUCONAZOLE 100 MG TAB PO SCH (09:46)
[2016-02-28] MEDS: ESCITALOPRAM 10 MG TAB PO SCH (09:46)
[2016-02-28] MEDS: MULTIVITAMINS THERAPEUTIC TAB PO SCH (09:46)
[2016-02-28] MEDS: ZINC SULFATE 220 MG CAP GTB SCH (09:47)
[2016-02-28] MEDS: RISPERIDONE 0.25 MG TAB PO SCH ×2 (09:47→20:37)
[2016-02-28] MEDS: MUPIROCIN 2% 22 GM OINT TOP SCH ×2 (09:49→20:38)
[2016-02-28] MEDS: MEROPENEM 500 MG in SOD CHLORIDE 0.9% 100 ML IVPB SCH ×2 (09:50→20:40)
[2016-02-28] MEDS: HEPARIN 5,000 UNIT/0.5 ML SYG SC SCH ×2 (09:56→20:52)
--- NOTE | 2016-02-28 10:05 | CONS ---
Date/Time of Note Date/Time of Note DATE: 02/28/16 TIME: 10:04 Assessment/Plan Assessment/Plan Additional Assessment/Plan 1) Sepsis. 2) Hypotension sec to sepsis 3) Acute kidney injury 2/2 ATN+ prerenal azotemia 4) severe metabolic acidosis anion gap 5) Hyponatremia. 8) Respiratory failure and tracheostomy. 9 Paraplegia. Plan: d/c bicarbonate drip start D51/2 NS with KCl will follow up Consultation Date/Type/Reason Admit Date/Time Feb 24, 2016 at 05:06 Type of Consultation: NEPHROLOGY Referring Provider: JOSÉ ANTONIO MIRZA MD 24 HR Interval Summary Free Text/Dictation pt stable, HCo3 normal, , no acute events Exam/Review of Systems Vital Signs Vitals Vital Signs Date Time Temp Pulse Resp B/P Pulse Ox O2 Delivery O2 Flow Rate FiO2 02/28/16 07:30 86 19 97/60 96 02/28/16 07:00 Trach Collar 02/28/16 05:18 30 02/28/16 04:00 97.8 02/25/16 18:40 10.0 Intake and Output 02/27/16 02/27/16 02/28/16 15:00 23:00 07:00 Intake Total 457.5 ml 1607.5 ml 1367.5 ml Output Total 470 ml 635 ml 685 ml Balance -12.5 ml 972.5 ml 682.5 ml Exam alert, awake + tracheostomy Bilateral Coarse BS+ S1 S2 tachycardia + g tube + starkey catheter Results Result Diagram: 02/26/16 0400 02/28/16 0725 Results 24 hrs Laboratory Tests Test 02/27/16 17:20 02/27/16 18:10 02/28/16 07:15 02/28/16 07:25 Anion Gap 18 H 12 Blood Urea Nitrogen 53 H 47 H Calcium Level 8.5 8.3 L Carbon Dioxide Level 18 L 23 Chloride Level 113 H 111 H Creatinine 2.37 H 2.13 H Glucose Level 74 138 # Potassium Level 3.3 L 3.3 L Sodium Level 146 H 143 Urine Eosinophils % 1.0 Urine Osmolality 333 Urine Random Creatinine 25.24 Urine Random Sodium 93 H Activated Partial Thromboplast Time 35.2 H INR International Normalized Ratio 1.12 Prothrombin Time 14.4 H Prothrombin Time Ratio 1.1 Medications Medications Current Medications Ondansetron HCl (Zofran Inj) 4 mg Q6H PRN IV NAUSEA AND/OR VOMITING Last administered on 02/27/16 12:46; Admin Dose 4 MG; Start 02/24/16 at 07:00 Acetaminophen (Tylenol Tab) 650 mg Q6H PRN PO PAIN LEVEL 1-3 OR FEVER Last administered on 02/25/16 08:41; Admin Dose 650 MG; Start 02/24/16 at 07:00 Morphine Sulfate (morphine) 2 mg Q4H PRN IV PAIN LEVEL 7-10 Last administered on 02/28/16 06:26; Admin Dose 2 MG; Start 02/24/16 at 07:00 Heparin Sodium (Porcine) (Heparin (5000 Units/0.5 ml)) 5,000 unit Q12 SC Last administered on 02/28/16 09:56; Admin Dose 5,000 UNIT; Start 02/24/16 at 09:00 Escitalopram Oxalate (Lexapro) 10 mg DAILY PO Last administered on 02/28/16 09 :46; Admin Dose 10 MG; Start 02/24/16 at 09:00 Magnesium Hydroxide (Milk Of Mag) 30 ml DAILY PRN PO CONSTIPATION; Start at 07:00 Multivitamins Therapeutic (Theragran) 1 tab DAILY PO Last administered on 09:46; Admin Dose 1 TAB; Start 02/24/16 at 09:00 Polyethylene Glycol (Miralax) 17 gm QHS PO Last administered on 02/27/16 20:17 ; Admin Dose 17 GM; Start 02/24/16 at 21:00 Risperidone (Risperdal) 0.5 mg BID PO Last administered on 02/28/16 09:47; Admin Dose 0.5 MG; Start 02/24/16 at 09:00 Hydromorphone HCl (Dilaudid) 0.5 mg Q6H PRN IV pain Last administered on 08:39; Admin Dose 0.5 MG; Start 02/24/16 at 16:00 Acetaminophen/ Hydrocodone Bitart ([place] (5/325)) 1 tab Q4H PRN GTB pain Last administered on 02/27/16 20:10; Admin Dose 1 TAB; Start 02/25/16 at 12:00 Zinc Sulfate (Zinc Sulfate) 220 mg DAILY GTB Last administered on 02/28/16 09: 47; Admin Dose 220 MG; Start 02/26/16 at 09:00 IV Flush 10 ml 10 ml PRN PRN IV IV PROTOCOL; Start 02/25/16 at 15:30 Vancomycin HCl/ Sodium Chloride (Vancocin/NS) 250 ml @ 83.333 mls/ hr Q48H IVPB Last administered on 02/26/16 11:21; Admin Dose 83.333 MLS/HR; Start at 11:30 Mupirocin (Bactroban) 1 applic BID TOP Last administered on 02/28/16 09:49; Admin Dose 1 APPLIC; Start 02/26/16 at 18:30 Dextrose (D50w Syringe) 50 ml PRN PRN IV DECREASED GLUCOSE Last administered on 02/27/16 07:21; Admin Dose 50 ML; Start 02/27/16 at 07:00 Glycopyrrolate (Robinul) 1 mg TID GTB Last administered on 02/28/16 09:46; Admin Dose 1 MG; Start 02/27/16 at 13:00 Pantoprazole 40 mg 40 mg DAILY@06 IV Last administered on 02/28/16 06:27; Admin Dose 40 MG; Start 02/28/16 at 06:00 Phenylephrine HCl 40 mg/Dextrose 500 ml @ 75 mls/hr TITRATE IV Last administered on 02/27/16 23:51; Admin Dose 22.5 MLS/HR; Start 02/27/16 at 16:00 Meropenem/Sodium Chloride (Merrem/NS) 100 ml @ 200 mls/hr Q12 IVPB Last administered on 02/28/16 09:50; Admin Dose 200 MLS/HR; Start 02/27/16 at 21:00 Fluconazole (Diflucan) 100 mg DAILY PO Last administered on 02/28/16 09:46; Admin Dose 100 MG; Start 02/28/16 at 09:00 TIAAR CISNEROS MD Feb 28, 2016 10:05
--- NOTE | 2016-02-28 11:17 | PN ---
Date/Time of Note Date/Time of Note DATE: 02/28/16 TIME: 11:16 Assessment/Plan VTE Prophylaxis VTE Prophylaxis Intervention: other Lines/Catheters IV Catheter Type (from [facility]): PICC Line Central line still needed: Yes Urinary Cath still in place: Yes Reason Cath still needed: skin wounds contaminated by urine Assessment/Plan Chief Complaint/Hosp Course 1) Sepsis. - per ID- Dr Maciel - lactic acid AM 2) Hypotension sec to sepsis - Transfer to icu - SEE ORDERS 3) Acute kidney injury - per nephrology 4) Underlying prerenal azotemia. 5) Underlying acute tubular necrosis due to sepsis. 6) Anion gap metabolic acidosis. 7) Hyponatremia. 8) Respiratory failure and tracheostomy. - Pulmonary consult appreciated- Dr Ames notified 9) Anemia. 10) Urinary tract infection. 11) Lung congestion, possible underlying pneumonia. 12) Paraplegia. Problems: Subjective 24 Hr Interval Summary Free Text/Dictation Eyes on, patient on ventilator Exam/Review of Systems Vital Signs Vitals Vital Signs Date Time Temp Pulse Resp B/P Pulse Ox O2 Delivery O2 Flow Rate FiO2 02/28/16 08:00 85 02/28/16 07:30 19 97/60 96 02/28/16 07:00 Trach Collar 02/28/16 05:18 30 02/28/16 04:00 97.8 02/25/16 18:40 10.0 Intake and Output 02/27/16 02/27/16 02/28/16 15:00 23:00 07:00 Intake Total 457.5 ml 1607.5 ml 1367.5 ml Output Total 470 ml 635 ml 685 ml Balance -12.5 ml 972.5 ml 682.5 ml Exam Constitutional: well developed Head: atraumatic, normocephalic Neck: supple Respiratory: diminished breath sounds Cardiovascular: regular rate and rhythm Gastrointestinal: non-tender, soft Extremities: normal pulses Results Result Diagram: 02/26/16 0400 02/28/16 0725 Results 24 hrs Laboratory Tests Test 02/27/16 17:20 02/27/16 18:10 02/28/16 07:15 02/28/16 07:25 Anion Gap 18 H 12 Blood Urea Nitrogen 53 H 47 H Calcium Level 8.5 8.3 L Carbon Dioxide Level 18 L 23 Chloride Level 113 H 111 H Creatinine 2.37 H 2.13 H Glucose Level 74 138 # Potassium Level 3.3 L 3.3 L Sodium Level 146 H 143 Urine Eosinophils % 1.0 Urine Osmolality 333 Urine Random Creatinine 25.24 Urine Random Sodium 93 H Activated Partial Thromboplast Time 35.2 H INR International Normalized Ratio 1.12 Prothrombin Time 14.4 H Prothrombin Time Ratio 1.1 Medications Medications Current Medications Ondansetron HCl (Zofran Inj) 4 mg Q6H PRN IV NAUSEA AND/OR VOMITING Last administered on 02/27/16 12:46; Admin Dose 4 MG; Start 02/24/16 at 07:00 Acetaminophen (Tylenol Tab) 650 mg Q6H PRN PO PAIN LEVEL 1-3 OR FEVER Last administered on 02/25/16 08:41; Admin Dose 650 MG; Start 02/24/16 at 07:00 Morphine Sulfate (morphine) 2 mg Q4H PRN IV PAIN LEVEL 7-10 Last administered on 02/28/16 06:26; Admin Dose 2 MG; Start 02/24/16 at 07:00 Heparin Sodium (Porcine) (Heparin (5000 Units/0.5 ml)) 5,000 unit Q12 SC Last administered on 02/28/16 09:56; Admin Dose 5,000 UNIT; Start 02/24/16 at 09:00 Escitalopram Oxalate (Lexapro) 10 mg DAILY PO Last administered on 02/28/16 09 :46; Admin Dose 10 MG; Start 02/24/16 at 09:00 Magnesium Hydroxide (Milk Of Mag) 30 ml DAILY PRN PO CONSTIPATION; Start at 07:00 Multivitamins Therapeutic (Theragran) 1 tab DAILY PO Last administered on 09:46; Admin Dose 1 TAB; Start 02/24/16 at 09:00 Polyethylene Glycol (Miralax) 17 gm QHS PO Last administered on 02/27/16 20:17 ; Admin Dose 17 GM; Start 02/24/16 at 21:00 Risperidone (Risperdal) 0.5 mg BID PO Last administered on 02/28/16 09:47; Admin Dose 0.5 MG; Start 02/24/16 at 09:00 Hydromorphone HCl (Dilaudid) 0.5 mg Q6H PRN IV pain Last administered on 08:39; Admin Dose 0.5 MG; Start 02/24/16 at 16:00 Acetaminophen/ Hydrocodone Bitart ([place] (5/325)) 1 tab Q4H PRN GTB pain Last administered on 02/27/16 20:10; Admin Dose 1 TAB; Start 02/25/16 at 12:00 Zinc Sulfate (Zinc Sulfate) 220 mg DAILY GTB Last administered on 02/28/16 09: 47; Admin Dose 220 MG; Start 02/26/16 at 09:00 IV Flush 10 ml 10 ml PRN PRN IV IV PROTOCOL; Start 02/25/16 at 15:30 Vancomycin HCl/ Sodium Chloride (Vancocin/NS) 250 ml @ 83.333 mls/ hr Q48H IVPB Last administered on 02/26/16 11:21; Admin Dose 83.333 MLS/HR; Start at 11:30 Mupirocin (Bactroban) 1 applic BID TOP Last administered on 02/28/16 09:49; Admin Dose 1 APPLIC; Start 02/26/16 at 18:30 Dextrose (D50w Syringe) 50 ml PRN PRN IV DECREASED GLUCOSE Last administered on 02/27/16 07:21; Admin Dose 50 ML; Start 02/27/16 at 07:00 Glycopyrrolate (Robinul) 1 mg TID GTB Last administered on 02/28/16 09:46; Admin Dose 1 MG; Start 02/27/16 at 13:00 Pantoprazole 40 mg 40 mg DAILY@06 IV Last administered on 02/28/16 06:27; Admin Dose 40 MG; Start 02/28/16 at 06:00 Phenylephrine HCl 40 mg/Dextrose 500 ml @ 75 mls/hr TITRATE IV Last administered on 02/27/16 23:51; Admin Dose 22.5 MLS/HR; Start 02/27/16 at 16:00 Meropenem/Sodium Chloride (Merrem/NS) 100 ml @ 200 mls/hr Q12 IVPB Last administered on 02/28/16 09:50; Admin Dose 200 MLS/HR; Start 02/27/16 at 21:00 Fluconazole 100 mg 100 mg DAILY PO Last administered on 02/28/16 09:46; Admin Dose 100 MG; Start 02/28/16 at 09:00 Potassium Chloride/Dextrose/ Sod Cl (D5-1/2ns + KCl 20 Meq) 1,000 ml @ 75 mls/ hr [id number] IV ; Start 02/28/16 at 10:30 DANAY MUIR Feb 28, 2016 11:17
[2016-02-28] MEDS: D5W-0.45 NACL + KCL 20 MEQ 1,000 ML IV SCH ×2 (12:31→23:50)
[2016-02-28] MEDS: VANCOMYCIN 1.25 GM in SOD CHLORIDE 0.9% 250 ML IVPB SCH (12:34)
[2016-02-28] MEDS: HYDROCODONE/APAP (5/325) TAB GTB PRN ×2 (12:53→20:43)
--- NOTE | 2016-02-28 13:22 | CONS ---
Date/Time of Note Date/Time of Note DATE: 02/28/16 TIME: 13:20 Assessment/Plan Assessment/Plan Chief Complaint/Hosp Course SUBJECTIVE: No acute events, remains on Ozzy-synephrine gtt, no fevers, nad MICROBIOLOGY: Blood culture grew staph species. Urine culture pending. INDWELLINGS: Trach, PEG, suprapubic catheter, PICC line placed on 02/25/2016, left upper extremity. ALLERGIES: NONE. ANTIMICROBIALS: 1. Merrem. 2. Vancomycin. 3. Diflucan ASSESSMENT: 1. Sepsis secondary to urinary tract infection. 2. Staph bacteremia, possibly contaminated specimen. 3. Methicillin-resistant Staphylococcus aureus nares colonization. 4. Neurogenic bladder with suprapubic catheter. 5. History of C-spine injury with quadriplegia. 6. Chronic respiratory failure, remains on vent. 7. A/CKD==> kidney US + multiple cysts 8. Hx R nephrectomy PLAN: The patient is clinically stable. Continue abx, f/u urine cx, consider urology eval to evaluate the need to replace suprapubic catheter. Check cortisone and procalcitonin levels in am DW staff Problems: Consultation Date/Type/Reason Admit Date/Time Feb 24, 2016 at 05:06 Initial Consult Date Type of Consultation: ID Referring Provider: JOSÉ ANTONIO MIRZA MD Exam/Review of Systems Vital Signs Vitals Vital Signs Date Time Temp Pulse Resp B/P Pulse Ox O2 Delivery O2 Flow Rate FiO2 02/28/16 11:05 82 16 98 30 02/28/16 07:30 97/60 02/28/16 07:00 Trach Collar 02/28/16 04:00 97.8 02/25/16 18:40 10.0 Intake and Output 02/27/16 02/27/16 02/28/16 15:00 23:00 07:00 Intake Total 457.5 ml 1607.5 ml 1367.5 ml Output Total 470 ml 635 ml 685 ml Balance -12.5 ml 972.5 ml 682.5 ml Results Result Diagram: 02/26/16 0400 02/28/16 0725 Results 24 hrs Laboratory Tests Test 02/27/16 17:20 02/27/16 18:10 02/28/16 07:15 02/28/16 07:25 Anion Gap 18 H 12 Blood Urea Nitrogen 53 H 47 H Calcium Level 8.5 8.3 L Carbon Dioxide Level 18 L 23 Chloride Level 113 H 111 H Creatinine 2.37 H 2.13 H Glucose Level 74 138 # Potassium Level 3.3 L 3.3 L Sodium Level 146 H 143 Urine Eosinophils % 1.0 Urine Osmolality 333 Urine Random Creatinine 25.24 Urine Random Sodium 93 H Activated Partial Thromboplast Time 35.2 H INR International Normalized Ratio 1.12 Prothrombin Time 14.4 H Prothrombin Time Ratio 1.1 Medications Medications Current Medications Ondansetron HCl (Zofran Inj) 4 mg Q6H PRN IV NAUSEA AND/OR VOMITING Last administered on 02/27/16 12:46; Admin Dose 4 MG; Start 02/24/16 at 07:00 Acetaminophen (Tylenol Tab) 650 mg Q6H PRN PO PAIN LEVEL 1-3 OR FEVER Last administered on 02/25/16 08:41; Admin Dose 650 MG; Start 02/24/16 at 07:00 Morphine Sulfate (morphine) 2 mg Q4H PRN IV PAIN LEVEL 7-10 Last administered on 02/28/16 06:26; Admin Dose 2 MG; Start 02/24/16 at 07:00 Heparin Sodium (Porcine) (Heparin (5000 Units/0.5 ml)) 5,000 unit Q12 SC Last administered on 02/28/16 09:56; Admin Dose 5,000 UNIT; Start 02/24/16 at 09:00 Escitalopram Oxalate (Lexapro) 10 mg DAILY PO Last administered on 02/28/16 09 :46; Admin Dose 10 MG; Start 02/24/16 at 09:00 Magnesium Hydroxide (Milk Of Mag) 30 ml DAILY PRN PO CONSTIPATION; Start at 07:00 Multivitamins Therapeutic (Theragran) 1 tab DAILY PO Last administered on 09:46; Admin Dose 1 TAB; Start 02/24/16 at 09:00 Polyethylene Glycol (Miralax) 17 gm QHS PO Last administered on 02/27/16 20:17 ; Admin Dose 17 GM; Start 02/24/16 at 21:00 Risperidone (Risperdal) 0.5 mg BID PO Last administered on 02/28/16 09:47; Admin Dose 0.5 MG; Start 02/24/16 at 09:00 Hydromorphone HCl (Dilaudid) 0.5 mg Q6H PRN IV pain Last administered on 08:39; Admin Dose 0.5 MG; Start 02/24/16 at 16:00 Acetaminophen/ Hydrocodone Bitart ([place] (5/325)) 1 tab Q4H PRN GTB pain Last administered on 02/28/16 12:53; Admin Dose 1 TAB; Start 02/25/16 at 12:00 Zinc Sulfate (Zinc Sulfate) 220 mg DAILY GTB Last administered on 02/28/16 09: 47; Admin Dose 220 MG; Start 02/26/16 at 09:00 IV Flush 10 ml 10 ml PRN PRN IV IV PROTOCOL; Start 02/25/16 at 15:30 Vancomycin HCl/ Sodium Chloride (Vancocin/NS) 250 ml @ 83.333 mls/ hr Q48H IVPB Last administered on 02/28/16 12:34; Admin Dose 83.333 MLS/HR; Start at 11:30 Mupirocin (Bactroban) 1 applic BID TOP Last administered on 02/28/16 09:49; Admin Dose 1 APPLIC; Start 02/26/16 at 18:30 Dextrose (D50w Syringe) 50 ml PRN PRN IV DECREASED GLUCOSE Last administered on 02/27/16 07:21; Admin Dose 50 ML; Start 02/27/16 at 07:00 Glycopyrrolate (Robinul) 1 mg TID GTB Last administered on 02/28/16 12:32; Admin Dose 1 MG; Start 02/27/16 at 13:00 Pantoprazole 40 mg 40 mg DAILY@06 IV Last administered on 02/28/16 06:27; Admin Dose 40 MG; Start 02/28/16 at 06:00 Phenylephrine HCl 40 mg/Dextrose 500 ml @ 75 mls/hr TITRATE IV Last administered on 02/27/16 23:51; Admin Dose 22.5 MLS/HR; Start 02/27/16 at 16:00 Meropenem/Sodium Chloride (Merrem/NS) 100 ml @ 200 mls/hr Q12 IVPB Last administered on 02/28/16 09:50; Admin Dose 200 MLS/HR; Start 1/21/17 at 21:00 Fluconazole 100 mg 100 mg DAILY PO Last administered on 02/28/16 09:46; Admin Dose 100 MG; Start 02/28/16 at 09:00 Potassium Chloride/Dextrose/ Sod Cl (D5-1/2ns + KCl 20 Meq) 1,000 ml @ 75 mls/ hr [id number] IV Last administered on 02/28/16 12:31; Admin Dose 75 MLS/HR; Start 02/28/16 at 10:30 REGINALDO CHERY NP Feb 28, 2016 13:22
--- NOTE | 2016-02-28 17:46 | PN ---
DATE: 02/28/2016 SUBJECTIVE: The patient is in ICU on the ventilator support. His BP is being maintained on Ozzy-Syn ephrine drip. OBJECTIVE: VITAL SIGNS: Show blood pressure 97/60, pulse rate is 82, respirations 16 on ventilator support, pu lse ox monitoring showing 98% saturation. His FiO2 is 30%. He has not had any major temperature sp ikes in the last 24 hours. NECK: Tracheostomy secretions are clear. No bleeding is seen. HEART: Sinus rhythm. CHEST: Breath sounds are diminished in the lower lung tierney, otherwise clear. ABDOMEN: Soft, not distended. Bowel sounds are present. EXTREMITIES: Show no edema. NEUROLOGIC: He is paraplegic. LABORATORY TESTS: The chemistry panel shows sodium 143, potassium 3.3, BUN is 47, creatinine is 2.1 3. BUN and creatinine are gradually improving. Urine culture is reported to show mixed gram-negati ve organisms, but the exact identification is awaited. Renal ultrasound is reported to show multiple left renal cysts, multiple renal calculi on the left s gayathri status post right nephrectomy. IMPRESSION: 1. Septic shock. 2. Urosepsis. 3. Chronic ventilator dependent respiratory failure. 4. Chronic anemia. 5. Chronic kidney disease with acute kidney injury, improving. 6. Status post spinal cord injury with paraplegia. 7. Status post tracheostomy. 8. Status post gastrostomy. RECOMMENDATIONS: 1. Continue long-term ventilator support. 2. Continue antibiotics per infectious disease bridal consultant. 3. Continue hydration. 4. Continue DVT prophylaxis and GI prophylaxis. Dictated By: HUMBERTO PEREZ MD SR/NTS Conf#: [id number] DID#: [id number] CC: TATI FRAZIER MD;*EndCC*
[2016-02-28] MEDS: POLYETHYLENE GLYCOL 17 GM PACKET PO SCH (20:37)
[2016-02-29] VITALS (100 sets, daily range): BP systolic 83–132; BP diastolic 47–97; PULSE 66–135; RESP 12–25
[2016-02-29] MEDS: D5W-0.45 NACL + KCL 20 MEQ 1,000 ML IV SCH ×2 (03:23→17:34)
[2016-02-29] MEDS: HYDROmorphONE 1 MG/ML SYG IV PRN ×3 (05:30→18:02)
[2016-02-29] MEDS: PANTOPRAZOLE 40 MG INJ IV SCH (05:34)
[2016-02-29] MEDS: PHENYLephrine 40 MG in DEXTROSE 5% 496 ML IV SCH (06:32)
--- NOTE | 2016-02-29 06:48 | PN ---
DATE: 02/27/2016 SUBJECTIVE: No acute changes. The patient is awake, lying comfortably in bed. He is on Ozzy-Syneph rine at 30 mcg per minute. No fevers and the patient is in no distress. VITAL SIGNS: Temperature 97.7, pulse 93, respirations 20, blood pressure 92/50, saturation 96% on v ent. LABORATORY DATA: No CBC this morning. BUN 52, creatinine 2.23. MICROBIOLOGY: Urine culture sent on 02/24/2016 showed contaminated specimen. Blood culture grew co agulase-negative staph species. Nares swab was positive for MRSA. Repeat blood culture had been ne dhiraj. INDWELLINGS: Trach, PEG, suprapubic catheter, PICC line placed on 02/25/2016. PHYSICAL EXAMINATION: GENERAL: Chronically ill-appearing, middle-aged white man who is awake, in no distress. HEENT: Head atraumatic, normocephalic. Sclerae anicteric. Buccal mucosa dry. NECK: Supple. Tracheostomy present. CHEST: Rise symmetrical. Breath sounds diminished to bases. HEART: S1, S2. ABDOMEN: Soft, bowel tones present. EXTREMITIES: Contractured and wasted without cyanosis. ASSESSMENT: 1. Severe sepsis with shock, likely secondary to urinary tract infection. 2. Urinary tract infection as per urinalysis. 3. Neurogenic bladder with suprapubic catheter. 4. Acute renal failure. 5. Chronic respiratory failure. 6. Dysphagia. 7. Paraplegia. PLAN: We are going to order a renal ultrasound. Repeat urine culture. Continue patient on vancomy rekha and change cefepime to imipenem. We will add Diflucan to the regimen as the patient has some ye ast in his skin folds. He is being seen by pulmonary and nephrology. We will follow their recommen dations. Dictated By: REGINALDO CHERY [employer]LECTRONIC ENGINEERING [employer]RAFTSPERSON for ANTONELLA ARGUETA/QUE Conf#: [id number] DID#: [id number]
[2016-02-29] MEDS: GLYCOPYRROLATE 1 MG TAB GTB SCH ×3 (08:53→20:07)
[2016-02-29] MEDS: MULTIVITAMINS THERAPEUTIC TAB PO SCH (09:01)
[2016-02-29] MEDS: RISPERIDONE 0.25 MG TAB PO SCH ×2 (09:01→20:08)
[2016-02-29] MEDS: FLUCONAZOLE 100 MG TAB PO SCH (09:02)
[2016-02-29] MEDS: ZINC SULFATE 220 MG CAP GTB SCH (09:02)
[2016-02-29] MEDS: MEROPENEM 500 MG in SOD CHLORIDE 0.9% 100 ML IVPB SCH ×2 (09:02→20:07)
[2016-02-29] MEDS: ESCITALOPRAM 10 MG TAB PO SCH (09:02)
[2016-02-29] MEDS: HEPARIN 5,000 UNIT/0.5 ML SYG SC SCH ×2 (09:04→20:14)
[2016-02-29] MEDS: HYDROCODONE/APAP (5/325) TAB GTB PRN ×2 (09:15→20:07)
[2016-02-29] MEDS: MUPIROCIN 2% 22 GM OINT TOP SCH ×2 (09:16→20:08)
--- NOTE | 2016-02-29 10:20 | PN ---
DATE: 02/29/2016 SUBJECTIVE: The patient is in the intensive care unit on ventilator support. . His vital sign s are stable. He is in intensive care unit. OBJECTIVE: VITAL SIGNS: Temperature is 98.8, blood pressure is 96/52 still on Ozzy-Synephrine drip, pulse rate is 86, respirations 16, pulse oximetry 99% saturation with 30% inhaled oxygen concentration. NECK: Tracheostomy secretions are clear. No bleeding is seen. HEART: Regular rhythm. CHEST: Breath sounds are heard bilaterally somewhat diminished in the lower lung tierney, otherwise, clear. ABDOMEN: Soft, not distended. He is tolerating gastrostomy tube feedings. Bowel sounds are normally heard. EXTREMITIES: Show no edema. He is paraplegic. LABORATORY: No lab results are available today. IMPRESSION: 1. Septic shock. 2. Urosepsis. 3. Chronic ventilatory dependent respiratory failure. 4. Chronic anemia. 5. Chronic kidney disease with acute kidney injury, improving. 6. Status post spinal cord injury with paraplegia. 7. Status post tracheostomy. 8. Status post gastrostomy. RECOMMENDATIONS: 1. Continue long-term ventilator support. 2. Continue antibiotics per infectious disease [facility] consultant. 3. Continue hydration. 4. Continue DVT prophylaxis and GI prophylaxis. Dictated By: HUMBERTO PEREZ MD SR/QUE Conf#: [id number] DID#: [id number]
--- NOTE | 2016-02-29 16:11 | CONS ---
Date/Time of Note Date/Time of Note DATE: 02/29/16 TIME: 16:10 Assessment/Plan Assessment/Plan Chief Complaint/Hosp Course IMPRESSION: The patient has: 1. Acute kidney injury.better 2. Sepsis. 3. Underlying prerenal azotemia. 4. Underlying acute tubular necrosis due to sepsis. 5. Anion gap metabolic acidosis. 6. Hyponatremia. 7. Leukocytosis. 8. Anemia. 9. Urinary tract infection. 10. Lung congestion, possible underlying pneumonia. 11. Paraplegia. 12. Respiratory failure and tracheostomy. 13. hypokalemia plan iv fluid ck labs renal stable kcl Problems: Consultation Date/Type/Reason Admit Date/Time Feb 24, 2016 at 05:06 Type of Consultation: renal Referring Provider: JOSÉ ANTONIO MIRZA MD 24 HR Interval Summary Constitutional: no complaints Exam/Review of Systems Vital Signs Vitals Vital Signs Date Time Temp Pulse Resp B/P Pulse Ox O2 Delivery O2 Flow Rate FiO2 02/29/16 15:30 72 14 108/72 98 Mechanical Ventilator Nasal Cannula 02/29/16 15:15 30 02/29/16 12:00 98.9 02/25/16 18:40 10.0 Intake and Output 02/28/16 02/28/16 02/29/16 15:00 23:00 07:00 Intake Total 802.5 ml 1553.75 ml 1095.00 ml Output Total 725 ml 380 ml 460 ml Balance 77.5 ml 1173.75 ml 635.00 ml Exam Neck: supple Respiratory: clear to auscultation Cardiovascular: regular rate and rhythm Gastrointestinal: soft Results Result Diagram: 02/26/16 0400 02/28/16 0725 Results 24 hrs Laboratory Tests Test 02/29/16 04:00 Random Cortisol 14.7 Medications Medications Current Medications Ondansetron HCl (Zofran Inj) 4 mg Q6H PRN IV NAUSEA AND/OR VOMITING Last administered on 02/27/16 12:46; Admin Dose 4 MG; Start 02/24/16 at 07:00 Acetaminophen (Tylenol Tab) 650 mg Q6H PRN PO PAIN LEVEL 1-3 OR FEVER Last administered on 02/25/16 08:41; Admin Dose 650 MG; Start 02/24/16 at 07:00 Morphine Sulfate (morphine) 2 mg Q4H PRN IV PAIN LEVEL 7-10 Last administered on 02/28/16 15:00; Admin Dose 2 MG; Start 02/24/16 at 07:00 Heparin Sodium (Porcine) (Heparin (5000 Units/0.5 ml)) 5,000 unit Q12 SC Last administered on 02/29/16 09:04; Admin Dose 5,000 UNIT; Start 02/24/16 at 09:00 Escitalopram Oxalate (Lexapro) 10 mg DAILY PO Last administered on 02/29/16 09 :02; Admin Dose 10 MG; Start 02/24/16 at 09:00 Magnesium Hydroxide (Milk Of Mag) 30 ml DAILY PRN PO CONSTIPATION; Start at 07:00 Multivitamins Therapeutic (Theragran) 1 tab DAILY PO Last administered on 09:01; Admin Dose 1 TAB; Start 02/24/16 at 09:00 Polyethylene Glycol (Miralax) 17 gm QHS PO Last administered on 02/28/16 20:37 ; Admin Dose 17 GM; Start 02/24/16 at 21:00 Risperidone (Risperdal) 0.5 mg BID PO Last administered on 02/29/16 09:01; Admin Dose 0.5 MG; Start 02/24/16 at 09:00 Hydromorphone HCl (Dilaudid) 0.5 mg Q6H PRN IV pain Last administered on 12:07; Admin Dose 0.5 MG; Start 02/24/16 at 16:00 Acetaminophen/ Hydrocodone Bitart ([place] (5/325)) 1 tab Q4H PRN GTB pain Last administered on 02/29/16 09:15; Admin Dose 1 TAB; Start 02/25/16 at 12:00 Zinc Sulfate (Zinc Sulfate) 220 mg DAILY GTB Last administered on 02/29/16 09: 02; Admin Dose 220 MG; Start 02/26/16 at 09:00 IV Flush 10 ml 10 ml PRN PRN IV IV PROTOCOL; Start 02/25/16 at 15:30 Vancomycin HCl/ Sodium Chloride (Vancocin/NS) 250 ml @ 83.333 mls/ hr Q48H IVPB Last administered on 02/28/16 12:34; Admin Dose 83.333 MLS/HR; Start at 11:30 Mupirocin (Bactroban) 1 applic BID TOP Last administered on 02/29/16 09:16; Admin Dose 1 APPLIC; Start 02/26/16 at 18:30 Dextrose (D50w Syringe) 50 ml PRN PRN IV DECREASED GLUCOSE Last administered on 02/27/16 07:21; Admin Dose 50 ML; Start 02/27/16 at 07:00 Glycopyrrolate (Robinul) 1 mg TID GTB Last administered on 02/29/16 13:05; Admin Dose 1 MG; Start 02/27/16 at 13:00 Pantoprazole 40 mg 40 mg DAILY@06 IV Last administered on 02/29/16 05:34; Admin Dose 40 MG; Start 02/28/16 at 06:00 Phenylephrine HCl 40 mg/Dextrose 500 ml @ 75 mls/hr TITRATE IV Last administered on 02/29/16 06:32; Admin Dose 18.75 MLS/HR; Start 02/27/16 at 16: 00 Meropenem/Sodium Chloride (Merrem/NS) 100 ml @ 200 mls/hr Q12 IVPB Last administered on 02/29/16 09:02; Admin Dose 200 MLS/HR; Start 02/27/16 at 21:00 Fluconazole 100 mg 100 mg DAILY PO Last administered on 02/29/16 09:02; Admin Dose 100 MG; Start 02/28/16 at 09:00 Potassium Chloride/Dextrose/ Sod Cl (D5-1/2ns + KCl 20 Meq) 1,000 ml @ 75 mls/ hr [id number] IV Last administered on 02/29/16 03:23; Admin Dose 75 MLS/HR; Start 02/28/16 at 10:30 Miscellaneous Information (*Rx Drug Level Order Reminder*) 1 ONCE ONCE XX ; Start 03/01/16 at 10:30; Stop 03/01/16 at 10:31 BRIANDA HIRSCH MD Feb 29, 2016 16:10
--- NOTE | 2016-02-29 17:18 | PN ---
DATE: 02/29/2016 SUBJECTIVE: Follow up on a 40-year-old male in septic shock secondary to urinary tract infection. 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 The patient is currently on a Ozzy-Synephrine drip f or hemodynamic support. No fever, nausea, vomiting reported by RN. OBJECTIVE VITAL SIGNS: Temperature is 98.8, pulse is 85, respiratory rate 12, blood pressure is 107/67, oxyge n saturation 99% on 30% FIO2. GENERAL: A well-developed male, currently is awake, opens eyes in response to verbal stimuli. HEENT: Head is atraumatic, normocephalic, PERRLA. NECK: Patient has a tracheostomy at the base of the neck. CHEST: Scattered rhonchi bilaterally. There are no wheezes or rales noted. HEART: Normal S1, S2. No murmurs, gallops, clicks, rubs noted. ABDOMEN: Round, soft, nondistended. G-tube. EXTREMITIES: Lower extremity was contracted body habitus and muscle wasting, no edema. Pulses pres ent. SKIN: Patient has a sacral decubitus stage III. No rash, petechiae noted. NEUROLOGIC: Patient is awake, opens eyes in response to verbal stimuli. ASSESSMENT AND PLAN: Severe sepsis with shock, most likely secondary to urinary tract infection and Dr. Maciel is following patient in infectious disease consultation. Continue antibiotics per ID. Patient is currently on: 1. Meropenem. 2. Vancomycin. 3. Diflucan. DIAGNOSES: 1. Urinary tract infection per urinalysis. 2. Neurogenic bladder with suprapubic catheter. Will ask Dr. Marquez to see patient in urology cons ultation for possible change in suprapubic catheter. 3. Chronic ventilator dependent respiratory failure. Dr. Yeung is following patient in a pulmonolog y consultation. Continue ventilator support broncho dilators. 4. Dysphagia with a G-tube. Continue current tube feeding. Aspiration precautions. 5. Acute renal failure. The patient is followed by Dr. Wright in nephrology consultation. Continue IV fluids. Monitor BUN and creatinine. 6. 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 7. Sacral decubitus stage III. Continue offloading, wound care consult, optimize nutrition. 8. Continue sequential compression device for deep venous thrombosis prophylaxis and Protonix for p eptic ulcer disease prophylaxis. Further recommendations based on clinical course. Plan of care discussed with Dr. Mirza. Dictated By: AISSATOU DUNCAN MANHOLE STRIPPER for JOSÉ ANTONIO MIRZA MD SR/NTS Conf#: [id number] DID#: [id number]
[2016-02-29] MEDS ORDERED: POTASSIUM CHLORIDE 30 MEQ in DEXTROSE 5% 250 ML IVPB ONE (17:30)
--- NOTE | 2016-02-29 18:02 | PN ---
DATE: 02/29/2016 SUBJECTIVE: No acute changes. The patient is lying comfortably in bed. He is afebrile. OBJECTIVE: Temperature 98.9, pulse 85, respirations 12, blood pressure 107/67, saturation 99% on ve nt. No labs this morning. MICROBIOLOGY: Urine culture repeated on 02/27/2016 consistent with contaminated specimen. ANTIMICROBIALS: The patient is on: 1. Meropenem. 2. Fluconazole. 3. Vancomycin. INDEWELLINGS: Trach, PEG, Morris, PICC line placed on 02/25/2016. Cortisol level this morning was 1 4.7 and procalcitonin level pending. PHYSICAL EXAMINATION: GENERAL: This is a chronically ill-appearing, middle-aged white man who is in no distress. HEENT: Head atraumatic, normocephalic. Sclerae anicteric. Buccal mucosa dry. NECK: Supple. Tracheostomy present. CHEST: Rise symmetrical. Breath sounds diminished to bases. HEART: S1, S2. ABDOMEN: Soft, bowel tones present. EXTREMITIES: Without cyanosis. ASSESSMENT: 1. Septic shock. 2. Urinary tract infection per urinalysis with repeat urine cultures still consistent with contamin ant. 3. Neurogenic bladder, status post suprapubic catheter placement. 4. Chronic respiratory failure. 5. Paraplegia. 6. Methicillin-resistant Staphylococcus aureus nares colonization. PLAN: The patient remains hemodynamically unstable. Blood cultures have been negative. He is mary lou ng followed by multiple consultants. Pending procalcitonin level. Continue antibiotics. Repeat ur ine culture. Consider urology evaluation. The patient may need new suprapubic catheter. Dictated By: REGINALDO CHERY CELL PHONE REPAIR TECHNICIAN for JOSÉ ANTONIO ARGUETA/QUE Conf#: [id number] DID#: [id number]
[2016-02-29] MEDS: POLYETHYLENE GLYCOL 17 GM PACKET PO SCH (20:08)
[2016-02-29] MEDS: morphine 2 MG INJ IV PRN (22:22)
[2016-03-01] VITALS (96 sets, daily range): BP systolic 97–145; BP diastolic 55–99; PULSE 69–111; RESP 14–26
[2016-03-01] MEDS: HYDROmorphONE 1 MG/ML SYG IV PRN ×3 (00:16→21:02)
--- NOTE | 2016-03-01 05:25 | CONS ---
DATE OF ADMISSION: 02/24/2016 DATE OF CONSULTATION: 02/29/2016 UROLOGICAL CONSULTATION REQUESTING PHYSICIAN: Hitesh Barreto MD Dear Dr. Barreto: Thank you for asking me to see this patient in urological consultation. HISTORY OF PRESENT ILLNESS: This is a 40-year-old male who was admitted to the hospital from a nurs ing facility because of hypoxemia. The patient is known to have a history of chronic paraplegia sec ondary to a cervical spine injury. Patient has a tracheostomy and also has a suprapubic tube. The s uprapubic tube has not been changed in a good time. Therefore, a urological consultation was reques harvinder. The patient does have presently sepsis secondary to urinary tract infection, hypoxia and he im proved on that. He has a chronic kidney disease with elevated BUN and creatinine, chronic paraplegi a from cervical spine injury and chronic tracheostomy secondary to respiratory failure. The patient is also status post a right nephrectomy. The patient himself is not capable of giving any history. Most of this information was obtained from his medical record. PAST SURGICAL HISTORY: Tracheostomy, PEG tube placement, suprapubic catheter and a right nephrectom y. ALLERGIES: THE PATIENT HAS NO KNOWN DRUG ALLERGIES. MEDICATIONS: He is presently on include: 1. Fluconazole. 2. Pantoprazole 3. Meropenem. 4. Phenylephrine hydrochloride titrating through the IV. 5. Robinul. 6. Bactroban. 7. Vancomycin. 8. Zinc sulfate. 9. [place]. 10. Ambien p.r.n. 11. MiraLax 17 grams at bedtime. 12. Dilaudid. 13. Heparin subq. 14. Lexapro 10 mg daily. 15. Risperdal 0.5 mg twice a day. 16. Zofran p.r.n. 17. Tylenol p.r.n. 18. Morphine p.r.n. 19. Milk of magnesia p.r.n. PHYSICAL EXAMINATION: GENERAL: Reveals a 40-year-old male, quadriplegic. He weighs 72.72 kg and he is 70 inches tall. VITAL SIGNS: Show a temperature of 98.4, pulse is 88, respiration 21, blood pressure 104/67. NECK: He has a tracheostomy. ABDOMEN: He has a PEG tube in place, and the suprapubic tube size 24-[place] that is draining clear, cloudy urine. The suprapubic tube appeared to be old and definitely needs to be changed. NEUROLOGIC: He is quadriplegic. LABORATORY DATA: His CBC shows a white count of 8.6, hemoglobin 9.1, hematocrit 28.3. BUN 47, crea tinine 2.13, sodium 143, potassium 3.3, chloride 111, CO2 23. Urine culture showed mixed gram-negat alee and positive organisms. The renal ultrasound was reported as multiple left renal cysts with largest measuring 5.3 cm with in ternal echogenic debris, increased left renal cortical echogenicity consistent with medical renal di sease, multiple renal calculi measuring up to 2 cm. There is no evidence of hydronephrosis and this patient is status post right nephrectomy. IMPRESSION: Urinary tract infection and left renal stones. Patient is status post right nephrectom y and multiple renal cysts measuring the largest being up to 5.3 cm in size. PLAN: I will change his suprapubic tube tomorrow and get a culture from the new suprapubic tube for urine culture. I will follow his urological problem with you. Thank you for allowing me to help in his care. Dictated By: BHARGAV SANDOVAL/QUE Conf#: [id number] DID#: [id number]
[2016-03-01 05:35] LABS: POTASSIUM 4.1 mmol/L (3.5-5.1)
[2016-03-01 05:37] LABS: CREATININE 1.65 mg/dl (0.61-1.24)
[2016-03-01] MEDS: PANTOPRAZOLE 40 MG INJ IV SCH (05:45)
[2016-03-01 05:53] LABS: EOSINOPHILS # 0.1 10^3/ul (0.0-0.5); EOSINOPHILS % 2.2 % (0.0-7.0); HEMATOCRIT 24.5 % (42.0-52.0); HEMOGLOBIN 8.1 g/dl (14.0-18.0); LYMPHOCYTES # 0.5 10^3/ul (0.8-2.9); LYMPHOCYTES % 8.8 % (15.0-51.0); MEAN CORPUSCULAR HEMOGLOBIN 29.9 pg (29.0-33.0); MEAN CORPUSCULAR HGB CONC 33.1 g/dl (32.0-37.0); MEAN CORPUSCULAR VOLUME 90.5 fl (82.0-101.0); MEAN PLATELET VOLUME 8.4 fl (7.4-10.4); MONOCYTE # 0.6 10^3/ul (0.3-0.9); MONOCYTES % 9.4 % (0.0-11.0); NEUTROPHIL # 4.8 10^3/ul (1.6-7.5); NEUTROPHILS % 79.6 % (39.0-77.0); PLATELET COUNT 169 10^3/UL (140-440); RED BLOOD COUNT 2.71 10^6/ul (4.70-6.10); RED CELL DISTRIBUTION WIDTH 13.4 % (11.5-14.5); UNCORRECTED WBC 6.1 10^3/ul (4.8-10.8); WHITE BLOOD COUNT 6.1 10^3/ul (4.8-10.8)
[2016-03-01 05:56] LABS: CREATININE 1.66 mg/dl (0.61-1.24)
[2016-03-01 05:57] LABS: CONDITION 1
[2016-03-01] MEDS: FLUCONAZOLE 100 MG TAB PO SCH ×2 (08:19→09:00)
[2016-03-01] MEDS: ZINC SULFATE 220 MG CAP GTB SCH ×2 (08:19→09:00)
[2016-03-01] MEDS: GLYCOPYRROLATE 1 MG TAB GTB SCH ×4 (08:19→20:38)
[2016-03-01] MEDS: RISPERIDONE 0.25 MG TAB PO SCH ×2 (08:20→20:39)
[2016-03-01] MEDS: ESCITALOPRAM 10 MG TAB PO SCH ×2 (08:20→09:00)
[2016-03-01] MEDS: MULTIVITAMINS THERAPEUTIC TAB PO SCH ×2 (08:20→09:00)
[2016-03-01] MEDS: MEROPENEM 500 MG in SOD CHLORIDE 0.9% 100 ML IVPB SCH ×2 (08:20→21:00)
[2016-03-01] MEDS: MUPIROCIN 2% 22 GM OINT TOP SCH ×2 (08:21→21:06)
[2016-03-01] MEDS: morphine 2 MG INJ IV PRN ×2 (08:22→18:12)
[2016-03-01] MEDS: HEPARIN 5,000 UNIT/0.5 ML SYG SC SCH (08:22)
--- NOTE | 2016-03-01 10:17 | PN ---
DATE: 03/01/2016 SUBJECTIVE: Has old suprapubic tube that needs to be changed and urinary tract infection. OBJECTIVE: The patient is on a respirator, has contracture of lower extremities and he has an old rocha prapubic tube. The suprapubic tube was removed and the patient does have a granulation tissue aroun d the opening of the suprapubic area. The area was prepped with Betadine solution and then a new 24- [place] 30 mL balloon catheter was put into the suprapubic tract into the bladder and connected to a drainage bag. The balloon was inflated with 30 mL of sterile water. The nurse will apply silver ni trate on the granulation tissue, hopefully that will make it go away little by little. OBJECTIVE: VITAL SIGNS: Temperature today is 97.8, pulse is 64, respiration is 14, blood pressure 104/55. NEUROLOGIC: As mentioned above, the suprapubic tube was changed. LABORATORY DATA: CBC shows a white count of 6.1, hemoglobin 8.1, hematocrit 24.5. The BUN is 40, c reatinine 1.65. Electrolytes are normal. PLAN: To do a urine culture from the new suprapubic tube and apply silver nitrate on the granulatio n tissue around the suprapubic tube. Dictated By: BHARGAV SANDOVAL/QUE Conf#: [id number] DID#: [id number]
[2016-03-01] MEDS ORDERED: VANCOMYCIN 1 GM in NS 250 ML IVPB SCH (13:00)
[2016-03-01] MEDS: SILVER NITRATE SWAB TOP SCH ×2 (13:01→21:02)
--- NOTE | 2016-03-01 15:05 | PN ---
DATE: 03/01/2016 SUBJECTIVE: This is an infectious disease progress note. No acute changes overnight. The patient is alert, lying comfortably in bed. No fevers. He is being seen by urology and now with a new supr apubic catheter. ANTIMICROBIALS: 1. Vancomycin. 2. Meropenem. 3. Fluconazole. 4. Topical Bactroban to nares. Vancomycin level of 16.3. PHYSICAL EXAMINATION: GENERAL: This is a chronically ill-appearing, middle-aged white male who is lying comfortably in be d. Patient is awake. HEENT: Head atraumatic, normocephalic. Sclerae anicteric. Buccal mucosa dry. NECK: Supple. Tracheostomy present. CHEST: Rise symmetrical. Breath sounds clear, diminished to bases. HEART: S1, S2. ABDOMEN: Soft. Bowel tones present. ASSESSMENT: 1. Sepsis with shock, likely secondary to urinary tract infection. So far, 2 sets of urine culture were contaminated. The patient is status post new suprapubic catheter and cultures per reports wer e sent. 2. Chronic respiratory failure. 3. Methicillin-resistant Staphylococcus aureus nares colonization. 4. Multiple pressure sores. 5. Paraplegia. PLAN: The patient remains on pressors. Still clinically stable. Covered with broad spectrum antib iotics, pending urine culture. Vent support per pulmonary. Dictated By: REGINALDO CHERY JR. SYSTEMS ADMINISTRATOR for ANTONELLA ARGUETA/QUE Conf#: [id number] DID#: [id number]
--- NOTE | 2016-03-01 15:08 | PN ---
Date/Time of Note Date/Time of Note DATE: 03/01/16 TIME: 15:00 Assessment/Plan VTE Prophylaxis VTE Prophylaxis Intervention: heparin Lines/Catheters IV Catheter Type (from [facility]): PICC Line Central line still needed: Yes Urinary Cath still in place: Yes Reason Cath still needed: other (indicate) (Neurogenic bladder) Assessment/Plan Chief Complaint/Hosp Course ASSESSMENT AND PLAN: - Severe sepsis with shock, most likely, secondary to urinary tract infection and Dr. Maciel is following patient in infectious disease consultation. Continue antibiotics per ID. Patient is currently on Meropenem, Vancomycin, Diflucan. Continue IV fluids ICU care, wean off Ozzy-Synephrine drip. - Urinary tract infection per urinalysis. - Neurogenic bladder with suprapubic catheter. Dr. Marquez urology consultation is appreciated, suprapubic catheter was changed today. - Chronic ventilator dependent respiratory failure. Dr. Ames is following patient in a pulmonology consultation. Continue ventilator support broncho dilators. - Dysphagia with a G-tube. Continue current tube feeding. Aspiration precautions. - Acute renal failure. The patient is followed by Dr. Wright in nephrology consultation. Continue IV fluids. Monitor BUN and creatinine. 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 - Sacral decubitus stage III. Continue offloading, continue current wound care. Continue sequential compression device for deep venous thrombosis prophylaxis and Protonix for peptic ulcer disease prophylaxis. Further recommendations based on clinical course. Plan of care discussed with Dr. Barreto. Problems: Subjective 24 Hr Interval Summary Free Text/Dictation Patient continues to be on Ozzy-Synephrine drip from pressure support, no fever, patient was G-tube malfunction, gastroenterology consult requested. Exam/Review of Systems Vital Signs Vitals Vital Signs Date Time Temp Pulse Resp B/P Pulse Ox O2 Delivery O2 Flow Rate FiO2 03/01/16 14:30 80 16 120/65 98 03/01/16 14:00 Mechanical Ventilator 03/01/16 12:00 98.7 03/01/16 11:13 30 Intake and Output 02/29/16 02/29/16 03/01/16 15:00 23:00 07:00 Intake Total 1353.50 ml 1554.996 ml 1010 ml Output Total 775 ml 535 ml 400 ml Balance 578.50 ml 1019.996 ml 610 ml Exam GENERAL: A well-developed male, currently is awake, opens eyes in response to verbal stimuli. HEENT: Head is atraumatic, normocephalic, PERRLA. NECK: Patient has a tracheostomy at the base of the neck. CHEST: Scattered rhonchi bilaterally. There are no wheezes or rales noted. HEART: Normal S1, S2. No murmurs, gallops, clicks, rubs noted. ABDOMEN: Round, soft, nondistended. G-tube. EXTREMITIES: Lower extremity was contracted body habitus and muscle wasting, no edema. Pulses present. SKIN: Patient has a sacral decubitus stage III. No rash, petechiae noted. NEUROLOGIC: Patient is awake, opens eyes in response to verbal stimuli. Results Result Diagram: 03/01/16 0400 03/01/16 0400 Results 24 hrs Laboratory Tests Test 03/01/16 04:00 03/01/16 07:44 03/01/16 10:43 Anion Gap 12 Basophils # 0.0 Basophils % 0.0 Blood Urea Nitrogen 40 H Calcium Level 8.0 L Carbon Dioxide Level 25 Chloride Level 106 Creatinine 1.65 H Eosinophils # 0.1 Eosinophils % 2.2 Glucose Level 136 Hematocrit 24.5 L Hemoglobin 8.1 L Lymphocytes # 0.5 L Lymphocytes % 8.8 L Mean Corpuscular Hemoglobin 29.9 Mean Corpuscular Hemoglobin Concent 33.1 Mean Corpuscular Volume 90.5 Mean Platelet Volume 8.4 Monocytes # 0.6 Monocytes % 9.4 Neutrophils # 4.8 Neutrophils % 79.6 H Nucleated Red Blood Cells # 0.0 Nucleated Red Blood Cells % 0.0 Platelet Count 169 # Potassium Level 4.1 Red Blood Count 2.71 L Red Cell Distribution Width 13.4 Sodium Level 139 White Blood Count 6.1 # Lab Scanned Report REFERENCE LAB Vancomycin Level Trough 16.3 Medications Medications Current Medications Ondansetron HCl (Zofran Inj) 4 mg Q6H PRN IV NAUSEA AND/OR VOMITING Last administered on 02/27/16 12:46; Admin Dose 4 MG; Start 02/24/16 at 07:00 Acetaminophen (Tylenol Tab) 650 mg Q6H PRN PO PAIN LEVEL 1-3 OR FEVER Last administered on 02/25/16 08:41; Admin Dose 650 MG; Start 02/24/16 at 07:00 Morphine Sulfate (morphine) 2 mg Q4H PRN IV PAIN LEVEL 7-10 Last administered on 03/01/16 08:22; Admin Dose 2 MG; Start 02/24/16 at 07:00 Heparin Sodium (Porcine) (Heparin (5000 Units/0.5 ml)) 5,000 unit Q12 SC Last administered on 03/01/16 08:22; Admin Dose 5,000 UNIT; Start 02/24/16 at 09:00 Escitalopram Oxalate (Lexapro) 10 mg DAILY PO Last administered on 02/29/16 09 :02; Admin Dose 10 MG; Start 02/24/16 at 09:00 Magnesium Hydroxide (Milk Of Mag) 30 ml DAILY PRN PO CONSTIPATION; Start at 07:00 Multivitamins Therapeutic (Theragran) 1 tab DAILY PO Last administered on 09:01; Admin Dose 1 TAB; Start 02/24/16 at 09:00 Polyethylene Glycol (Miralax) 17 gm QHS PO Last administered on 02/29/16 20:08 ; Admin Dose 17 GM; Start 02/24/16 at 21:00 Risperidone (Risperdal) 0.5 mg BID PO Last administered on 03/01/16 08:20; Admin Dose 0.5 MG; Start 02/24/16 at 09:00 Hydromorphone HCl (Dilaudid) 0.5 mg Q6H PRN IV pain Last administered on 13:01; Admin Dose 0.5 MG; Start 02/24/16 at 16:00 Acetaminophen/ Hydrocodone Bitart ([place] (5/325)) 1 tab Q4H PRN GTB pain Last administered on 02/29/16 20:07; Admin Dose 1 TAB; Start 02/25/16 at 12:00 Zinc Sulfate (Zinc Sulfate) 220 mg DAILY GTB Last administered on 02/29/16 09: 02; Admin Dose 220 MG; Start 02/26/16 at 09:00 IV Flush (NS 10 ml) 10 ml PRN PRN IV IV PROTOCOL; Start 02/25/16 at 15:30 Mupirocin (Bactroban) 1 applic BID TOP Last administered on 03/01/16 08:21; Admin Dose 1 APPLIC; Start 02/26/16 at 18:30 Dextrose (D50w Syringe) 50 ml PRN PRN IV DECREASED GLUCOSE Last administered on 02/27/16 07:21; Admin Dose 50 ML; Start 02/27/16 at 07:00 Glycopyrrolate (Robinul) 1 mg TID GTB Last administered on 02/29/16 20:07; Admin Dose 1 MG; Start 02/27/16 at 13:00 Pantoprazole 40 mg 40 mg DAILY@06 IV Last administered on 03/01/16 05:45; Admin Dose 40 MG; Start 02/28/16 at 06:00 Phenylephrine HCl 40 mg/Dextrose 500 ml @ 75 mls/hr TITRATE IV Last administered on 02/29/16 06:32; Admin Dose 18.75 MLS/HR; Start 02/27/16 at 16: 00 Meropenem/Sodium Chloride (Merrem/NS) 100 ml @ 200 mls/hr Q12 IVPB Last administered on 03/01/16 08:20; Admin Dose 200 MLS/HR; Start 02/27/16 at 21:00 Fluconazole 100 mg 100 mg DAILY PO Last administered on 02/29/16 09:02; Admin Dose 100 MG; Start 02/28/16 at 09:00 Potassium Chloride/Dextrose/ Sod Cl (D5-1/2ns + KCl 20 Meq) 1,000 ml @ 75 mls/ hr [id number] IV Last administered on 02/29/16 17:34; Admin Dose 75 MLS/HR; Start 02/28/16 at 10:30 Silver Nitrate 1 stick 1 stick BID TOP Last administered on 03/01/16 13:01; Admin Dose 1 STICK; Start 03/01/16 at 10:30 Vancomycin HCl (Vancocin) 250 ml @ 125 mls/hr Q48H IVPB Last administered on 13:01; Admin Dose 125 MLS/HR; Start 03/01/16 at 13:00 AISSATOU DUNCAN Mar 01, 2016 15:07
--- NOTE | 2016-03-01 15:54 | CONS ---
Date/Time of Note Date/Time of Note DATE: 03/01/16 TIME: 15:53 Assessment/Plan Assessment/Plan Chief Complaint/Hosp Course IMPRESSION: The patient has: 1. Acute kidney injury.better 2. Sepsis. 3. Underlying prerenal azotemia. 4. Underlying acute tubular necrosis due to sepsis. 5. Anion gap metabolic acidosis. 6. Hyponatremia.better 7. Leukocytosis. 8. Anemia. 9. Urinary tract infection. 10. Lung congestion, possible underlying pneumonia. 11. Paraplegia. 12. Respiratory failure and tracheostomy. plan iv fluid ck labs renal stable Problems: Consultation Date/Type/Reason Admit Date/Time Feb 24, 2016 at 05:06 Type of Consultation: renal Referring Provider: JOSÉ ANTONIO MIRZA MD 24 HR Interval Summary Constitutional: no complaints Exam/Review of Systems Vital Signs Vitals Vital Signs Date Time Temp Pulse Resp B/P Pulse Ox O2 Delivery O2 Flow Rate FiO2 03/01/16 14:30 80 16 120/65 98 03/01/16 14:00 Mechanical Ventilator 03/01/16 12:00 98.7 03/01/16 11:13 30 Intake and Output 02/29/16 02/29/16 03/01/16 15:00 23:00 07:00 Intake Total 1353.50 ml 1554.996 ml 1010 ml Output Total 775 ml 535 ml 400 ml Balance 578.50 ml 1019.996 ml 610 ml Exam Neck: supple Respiratory: clear to auscultation Cardiovascular: regular rate and rhythm Gastrointestinal: soft Musculoskeletal: nl extremities to inspection Extremities: normal pulses Results Result Diagram: 03/01/16 0400 03/01/16 0400 Results 24 hrs Laboratory Tests Test 03/01/16 04:00 03/01/16 07:44 03/01/16 10:43 Anion Gap 12 Basophils # 0.0 Basophils % 0.0 Blood Urea Nitrogen 40 H Calcium Level 8.0 L Carbon Dioxide Level 25 Chloride Level 106 Creatinine 1.65 H Eosinophils # 0.1 Eosinophils % 2.2 Glucose Level 136 Hematocrit 24.5 L Hemoglobin 8.1 L Lymphocytes # 0.5 L Lymphocytes % 8.8 L Mean Corpuscular Hemoglobin 29.9 Mean Corpuscular Hemoglobin Concent 33.1 Mean Corpuscular Volume 90.5 Mean Platelet Volume 8.4 Monocytes # 0.6 Monocytes % 9.4 Neutrophils # 4.8 Neutrophils % 79.6 H Nucleated Red Blood Cells # 0.0 Nucleated Red Blood Cells % 0.0 Platelet Count 169 # Potassium Level 4.1 Red Blood Count 2.71 L Red Cell Distribution Width 13.4 Sodium Level 139 White Blood Count 6.1 # Lab Scanned Report REFERENCE LAB Vancomycin Level Trough 16.3 Medications Medications Current Medications Ondansetron HCl (Zofran Inj) 4 mg Q6H PRN IV NAUSEA AND/OR VOMITING Last administered on 02/27/16 12:46; Admin Dose 4 MG; Start 02/24/16 at 07:00 Acetaminophen (Tylenol Tab) 650 mg Q6H PRN PO PAIN LEVEL 1-3 OR FEVER Last administered on 02/25/16 08:41; Admin Dose 650 MG; Start 02/24/16 at 07:00 Morphine Sulfate (morphine) 2 mg Q4H PRN IV PAIN LEVEL 7-10 Last administered on 03/01/16 08:22; Admin Dose 2 MG; Start 02/24/16 at 07:00 Escitalopram Oxalate (Lexapro) 10 mg DAILY PO Last administered on 02/29/16 09 :02; Admin Dose 10 MG; Start 02/24/16 at 09:00 Magnesium Hydroxide (Milk Of Mag) 30 ml DAILY PRN PO CONSTIPATION; Start at 07:00 Multivitamins Therapeutic (Theragran) 1 tab DAILY PO Last administered on 09:01; Admin Dose 1 TAB; Start 02/24/16 at 09:00 Polyethylene Glycol (Miralax) 17 gm QHS PO Last administered on 02/29/16 20:08 ; Admin Dose 17 GM; Start 02/24/16 at 21:00 Risperidone (Risperdal) 0.5 mg BID PO Last administered on 03/01/16 08:20; Admin Dose 0.5 MG; Start 02/24/16 at 09:00 Hydromorphone HCl (Dilaudid) 0.5 mg Q6H PRN IV pain Last administered on 13:01; Admin Dose 0.5 MG; Start 02/24/16 at 16:00 Acetaminophen/ Hydrocodone Bitart ([place] (5/325)) 1 tab Q4H PRN GTB pain Last administered on 02/29/16 20:07; Admin Dose 1 TAB; Start 02/25/16 at 12:00 Zinc Sulfate (Zinc Sulfate) 220 mg DAILY GTB Last administered on 02/29/16 09: 02; Admin Dose 220 MG; Start 02/26/16 at 09:00 IV Flush (NS 10 ml) 10 ml PRN PRN IV IV PROTOCOL; Start 02/25/16 at 15:30 Mupirocin (Bactroban) 1 applic BID TOP Last administered on 03/01/16 08:21; Admin Dose 1 APPLIC; Start 02/26/16 at 18:30 Dextrose (D50w Syringe) 50 ml PRN PRN IV DECREASED GLUCOSE Last administered on 02/27/16 07:21; Admin Dose 50 ML; Start 02/27/16 at 07:00 Glycopyrrolate (Robinul) 1 mg TID GTB Last administered on 02/29/16 20:07; Admin Dose 1 MG; Start 02/27/16 at 13:00 Pantoprazole 40 mg 40 mg DAILY@06 IV Last administered on 03/01/16 05:45; Admin Dose 40 MG; Start 02/28/16 at 06:00 Phenylephrine HCl 40 mg/Dextrose 500 ml @ 75 mls/hr TITRATE IV Last administered on 02/29/16 06:32; Admin Dose 18.75 MLS/HR; Start 02/27/16 at 16: 00 Meropenem/Sodium Chloride (Merrem/NS) 100 ml @ 200 mls/hr Q12 IVPB Last administered on 03/01/16 08:20; Admin Dose 200 MLS/HR; Start 02/27/16 at 21:00 Fluconazole 100 mg 100 mg DAILY PO Last administered on 02/29/16 09:02; Admin Dose 100 MG; Start 02/28/16 at 09:00 Potassium Chloride/Dextrose/ Sod Cl (D5-1/2ns + KCl 20 Meq) 1,000 ml @ 75 mls/ hr [id number] IV Last administered on 02/29/16 17:34; Admin Dose 75 MLS/HR; Start 02/28/16 at 10:30 Silver Nitrate 1 stick 1 stick BID TOP Last administered on 03/01/16 13:01; Admin Dose 1 STICK; Start 03/01/16 at 10:30 Vancomycin HCl (Vancocin) 250 ml @ 125 mls/hr Q48H IVPB Last administered on t 13:01; Admin Dose 125 MLS/HR; Start 03/01/16 at 13:00 BRIANDA HIRSCH MD Mar 01, 2016 15:54
[2016-03-01] MEDS: D5W-0.45 NACL + KCL 20 MEQ 1,000 ML IV SCH (16:29)
[2016-03-01] MEDS: PHENYLephrine 40 MG in DEXTROSE 5% 496 ML IV SCH (16:42)
--- NOTE | 2016-03-01 18:28 | PN ---
DATE: 03/01/2016 SUBJECTIVE: The patient is in ICU on the ventilator support. His breathing appears comfortable. PHYSICAL EXAMINATION: VITAL SIGNS: Show no fever spikes, blood pressure 140/70 with a small dose of Ozzy-Synephrine drip, respiratory rate is 21, pulse oximetry shows 95% saturation. The pulse rate is 89 showing sinus rhy thm. NECK: Tracheal secretions are clear. No bleeding is seen. HEART: Regular rhythm. CHEST: Breath sounds are heard bilaterally, diminished in the lower lung [place], otherwise clear. ABDOMEN: Soft, not distended. EXTREMITIES: Show no edema. He is paraplegic. LABORATORY DATA: From today shows a WBC of 6100, hemoglobin 8.1, hematocrit 24.5, platelets are wit hin normal limits, though it is gradually decreasing. Chemistry panel shows a sodium 139, potassium 4.1, BUN is 40, creatinine 1.65, bicarbonate is 25. IMPRESSION: 1. Septic shock. 2. Urosepsis. 3. Chronic ventilator dependent respiratory failure. 4. Chronic anemia. 5. Chronic kidney disease with acute kidney injury, improving. 6. Status post spinal cord injury with paraplegia. 7. Status post coronary artery bypass graft. 8. Status post gastrostomy. RECOMMENDATION: 1. Continue long-term enteral support. 2. Continue antibiotics per infectious disease wig sales consultant. 3. Continue hydration. 4. Continue DVT prophylaxis and GI prophylaxis. Dictated By: HUMBERTO PEREZ MD SR/NTS Conf#: [id number] DID#: [id number] CC: TATI FRAZIER MD;*EndCC*
[2016-03-01] MEDS: POLYETHYLENE GLYCOL 17 GM PACKET PO SCH (20:38)
[2016-03-02] VITALS (51 sets, daily range): BP systolic 84–123; BP diastolic 54–90; PULSE 60–126; RESP 11–28
[2016-03-02] MEDS: morphine 2 MG INJ IV PRN ×3 (00:29→20:41)
[2016-03-02] MEDS: D5W-0.45 NACL + KCL 20 MEQ 1,000 ML IV SCH ×2 (03:33→18:12)
[2016-03-02] MEDS: HYDROmorphONE 1 MG/ML SYG IV PRN ×3 (03:41→18:25)
[2016-03-02 04:57] LABS: BASOPHILS % 0.3 % (0.0-2.0); EOSINOPHILS # 0.1 10^3/ul (0.0-0.5); EOSINOPHILS % 2.1 % (0.0-7.0); HEMATOCRIT 26.6 % (42.0-52.0); HEMOGLOBIN 8.7 g/dl (14.0-18.0); LYMPHOCYTES # 0.6 10^3/ul (0.8-2.9); LYMPHOCYTES % 9.8 % (15.0-51.0); MEAN CORPUSCULAR HEMOGLOBIN 29.6 pg (29.0-33.0); MEAN CORPUSCULAR HGB CONC 32.8 g/dl (32.0-37.0); MEAN CORPUSCULAR VOLUME 90.2 fl (82.0-101.0); MEAN PLATELET VOLUME 8.4 fl (7.4-10.4); MONOCYTE # 0.6 10^3/ul (0.3-0.9); MONOCYTES % 9.6 % (0.0-11.0); NEUTROPHIL # 4.7 10^3/ul (1.6-7.5); NEUTROPHILS % 78.2 % (39.0-77.0); PLATELET COUNT 183 10^3/UL (140-440); RED BLOOD COUNT 2.95 10^6/ul (4.70-6.10); RED CELL DISTRIBUTION WIDTH 13.5 % (11.5-14.5)
[2016-03-02 05:01] LABS: CONDITION 1
[2016-03-02 05:03] LABS: POTASSIUM 4.6 mmol/L (3.5-5.1)
[2016-03-02 05:06] LABS: CREATININE 1.69 mg/dl (0.61-1.24)
[2016-03-02 05:07] LABS: CALCIUM 8.2 mg/dl (8.4-10.2)
[2016-03-02] MEDS: PANTOPRAZOLE 40 MG INJ IV SCH (05:48)
[2016-03-02] MEDS: GLYCOPYRROLATE 1 MG TAB GTB SCH ×3 (09:09→20:51)
[2016-03-02] MEDS: FLUCONAZOLE 100 MG TAB PO SCH (09:09)
[2016-03-02] MEDS: RISPERIDONE 0.25 MG TAB PO SCH ×2 (09:09→20:52)
[2016-03-02] MEDS: MULTIVITAMINS THERAPEUTIC TAB PO SCH (09:10)
[2016-03-02] MEDS: MUPIROCIN 2% 22 GM OINT TOP SCH ×2 (09:10→20:52)
[2016-03-02] MEDS: ESCITALOPRAM 10 MG TAB PO SCH (09:10)
[2016-03-02] MEDS: ZINC SULFATE 220 MG CAP GTB SCH (09:10)
[2016-03-02] MEDS: SILVER NITRATE SWAB TOP SCH ×2 (09:10→20:53)
[2016-03-02] MEDS: MEROPENEM 500 MG in SOD CHLORIDE 0.9% 100 ML IVPB SCH ×2 (09:13→20:53)
--- NOTE | 2016-03-02 12:17 | CONS ---
Date/Time of Note Date/Time of Note DATE: 03/02/16 TIME: 12:16 Assessment/Plan Assessment/Plan Chief Complaint/Hosp Course IMPRESSION: The patient has: 1. Acute kidney injury.better 2. Sepsis. 3. Underlying prerenal azotemia. 4. Underlying acute tubular necrosis due to sepsis. 5. Anion gap metabolic acidosis. 6. Hyponatremia.better 7. Leukocytosis. 8. Anemia. 9. Urinary tract infection. 10. Lung congestion, possible underlying pneumonia. 11. Paraplegia. 12. Respiratory failure and tracheostomy. plan iv fluid ck labs renal stable Problems: Consultation Date/Type/Reason Admit Date/Time Feb 24, 2016 at 05:06 Type of Consultation: renal Referring Provider: JOSÉ ANTONIO MIRZA MD 24 HR Interval Summary Constitutional: no complaints Exam/Review of Systems Vital Signs Vitals Vital Signs Date Time Temp Pulse Resp B/P Pulse Ox O2 Delivery O2 Flow Rate FiO2 03/02/16 11:30 103 17 91 50 03/02/16 04:30 103/63 Mechanical Ventilator 03/02/16 04:00 98.4 Intake and Output 03/01/16 03/01/16 03/02/16 15:00 23:00 07:00 Intake Total 100 ml 1362.5 ml 251 ml Output Total 920 ml 1265 ml 975 ml Balance -820 ml 97.5 ml -724 ml Exam Respiratory: diminished breath sounds Cardiovascular: regular rate and rhythm Gastrointestinal: bowel sounds (+), soft Extremities: edema (tr) Results Result Diagram: 03/02/16 0345 03/02/16 0345 Results 24 hrs Laboratory Tests Test 03/02/16 03:45 Anion Gap 13 Basophils # 0.0 Basophils % 0.3 Blood Urea Nitrogen 34 H Calcium Level 8.2 L Carbon Dioxide Level 25 Chloride Level 109 Creatinine 1.69 H Eosinophils # 0.1 Eosinophils % 2.1 Glucose Level 84 # Hematocrit 26.6 L Hemoglobin 8.7 L Lymphocytes # 0.6 L Lymphocytes % 9.8 L Mean Corpuscular Hemoglobin 29.6 Mean Corpuscular Hemoglobin Concent 32.8 Mean Corpuscular Volume 90.2 Mean Platelet Volume 8.4 Monocytes # 0.6 Monocytes % 9.6 Neutrophils # 4.7 Neutrophils % 78.2 H Nucleated Red Blood Cells # 0.0 Nucleated Red Blood Cells % 0.0 Platelet Count 183 Potassium Level 4.6 Red Blood Count 2.95 L Red Cell Distribution Width 13.5 Sodium Level 142 Thyroid Stimulating Hormone (TSH) 1.470 White Blood Count 6.0 Medications Medications Current Medications Ondansetron HCl (Zofran Inj) 4 mg Q6H PRN IV NAUSEA AND/OR VOMITING Last administered on 02/27/16 12:46; Admin Dose 4 MG; Start 02/24/16 at 07:00 Acetaminophen (Tylenol Tab) 650 mg Q6H PRN PO PAIN LEVEL 1-3 OR FEVER Last administered on 02/25/16 08:41; Admin Dose 650 MG; Start 02/24/16 at 07:00 Morphine Sulfate (morphine) 2 mg Q4H PRN IV PAIN LEVEL 7-10 Last administered on 03/02/16 09:09; Admin Dose 2 MG; Start 02/24/16 at 07:00 Escitalopram Oxalate (Lexapro) 10 mg DAILY PO Last administered on 03/02/16 09 :10; Admin Dose 10 MG; Start 02/24/16 at 09:00 Magnesium Hydroxide (Milk Of Mag) 30 ml DAILY PRN PO CONSTIPATION; Start at 07:00 Multivitamins Therapeutic (Theragran) 1 tab DAILY PO Last administered on 09:10; Admin Dose 1 TAB; Start 02/24/16 at 09:00 Polyethylene Glycol (Miralax) 17 gm QHS PO Last administered on 02/29/16 20:08 ; Admin Dose 17 GM; Start 02/24/16 at 21:00 Risperidone (Risperdal) 0.5 mg BID PO Last administered on 03/02/16 09:09; Admin Dose 0.5 MG; Start 02/24/16 at 09:00 Hydromorphone HCl (Dilaudid) 0.5 mg Q6H PRN IV pain Last administered on 03:41; Admin Dose 0.5 MG; Start 02/24/16 at 16:00 Acetaminophen/ Hydrocodone Bitart ([place] (5/325)) 1 tab Q4H PRN GTB pain Last administered on 02/29/16 20:07; Admin Dose 1 TAB; Start 02/25/16 at 12:00 Zinc Sulfate (Zinc Sulfate) 220 mg DAILY GTB Last administered on 03/02/16 09: 10; Admin Dose 220 MG; Start 02/26/16 at 09:00 IV Flush (NS 10 ml) 10 ml PRN PRN IV IV PROTOCOL; Start 02/25/16 at 15:30 Mupirocin (Bactroban) 1 applic BID TOP Last administered on 03/02/16 09:10; Admin Dose 1 APPLIC; Start 02/26/16 at 18:30 Dextrose (D50w Syringe) 50 ml PRN PRN IV DECREASED GLUCOSE Last administered on 02/27/16 07:21; Admin Dose 50 ML; Start 02/27/16 at 07:00 Glycopyrrolate (Robinul) 1 mg TID GTB Last administered on 03/02/16 09:09; Admin Dose 1 MG; Start 02/27/16 at 13:00 Pantoprazole 40 mg 40 mg DAILY@06 IV Last administered on 03/02/16 05:48; Admin Dose 40 MG; Start 02/28/16 at 06:00 Phenylephrine HCl 40 mg/Dextrose 500 ml @ 75 mls/hr TITRATE IV Last administered on 03/01/16 16:42; Admin Dose 7.5 MLS/HR; Start 02/27/16 at 16:00 Meropenem/Sodium Chloride (Merrem/NS) 100 ml @ 200 mls/hr Q12 IVPB Last administered on 03/02/16 09:13; Admin Dose 200 MLS/HR; Start 02/27/16 at 21:00 Fluconazole 100 mg 100 mg DAILY PO Last administered on 03/02/16 09:09; Admin Dose 100 MG; Start 02/28/16 at 09:00 Potassium Chloride/Dextrose/ Sod Cl (D5-1/2ns + KCl 20 Meq) 1,000 ml @ 75 mls/ hr [id number] IV Last administered on 03/02/16 03:33; Admin Dose 75 MLS/HR; Start 02/28/16 at 10:30 Silver Nitrate 1 stick 1 stick BID TOP Last administered on 03/02/16 09:10; Admin Dose 1 STICK; Start 03/01/16 at 10:30 Vancomycin HCl (Vancocin) 250 ml @ 125 mls/hr Q48H IVPB Last administered on 13:01; Admin Dose 125 MLS/HR; Start 03/01/16 at 13:00 BRIANDA HIRSCH MD Mar 02, 2016 12:17
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
--- NOTE | 2016-03-02 13:45 | PN ---
DATE: 03/02/2016 SUBJECTIVE: No acute changes. The patient is alert, looks comfortable, no fevers. He is off Ozzy-S ynephrine drip as of this morning. WBC 6 and neutrophils 78.2. BUN 34, creatinine 1.69. MICROBIOLOGY: Urine culture supposed to be sent yesterday, but not in the computer. ANTIMICROBIALS: The patient is on: 1. Meropenem. 2. Vancomycin. 3. Topical Bactroban to nares. 4. Fluconazole. INDWELLINGS: Trach, PEG, suprapubic catheter, and PICC line placed on 02/25/2016. PHYSICAL EXAMINATION: GENERAL: This is a chronically ill-appearing, middle-aged white man who is alert, in no distress. HEENT: Head atraumatic, normocephalic. Sclerae anicteric. Buccal mucosa pink. NECK: Supple. Tracheostomy present. CHEST: Rise symmetrical. Breath sounds diminished at bases. HEART: S1, S2. ABDOMEN: Soft. Bowel sounds present. G-tube site with slight erythema, but no evidence of active infection. EXTREMITIES: Wasted without cyanosis. ASSESSMENT: 1. Resolving sepsis, status post shock. 2. Urinary tract infection as per urinalysis, status post new suprapubic catheter, repeat urine cul tures have been contaminated. 3. Chronic respiratory failure. 4. Neurogenic bladder. 5. Incomplete quadriplegia. 6. Methicillin-resistant Staphylococcus aureus nares colonization. PLAN: The patient remains stable on antibiotics day #8. We are going to discontinue vancomycin and Diflucan. Continue meropenem for now. Continue Bactroban to nares, local wound care and follow re commendations of specialists. Dictated By: REGINALDO CHERY TEXTILE ENGINEER for ANTONELLA STEWART MD NI/NTS Conf#: [id number] DID#: [id number]
--- NOTE | 2016-03-02 14:44 | RADRPT ---
Echocardiogram Report Patient Name: ANGIE COPPOLA Gender: Male Date: 1975 Study Date: 02-Mar-2016 As400 Administrator: Karin Mann RDCS Location: [id number] Ref. Physician: JOSÉ ANTONIO MIRZA Quality: Technically Difficult Study Procedures: Transthoracic echocardiogram with complete 2D, M-Mode, and doppler examination. Indications: Evaluate Left Ventricular function. 2D/M Mode Doppler Measurement Value Normal Ranges Measurement Value Normal Ranges LVIDd 2D 4.0 3.5 - 5.6 cm AV Peak Markus 0.9 m/sec LVIDs 2D 3.1 2.1 - 4.1 cm AV Peak PG 3.3 mmHg LVPWd 2D 1.0 0.6 - 1.1 cm LVOT Peak Markus 0.8 m/sec IVSd 2D 0.8 0.6 - 1.1 cm LVOT Peak PG 2.7 mmHg AoR Diam 2D 2.1 2.0 - 3.7 cm MV E Peak Markus 0.5 m/sec EDV 2D 69.1 cm3 MV A Peak Markus 0.5 m/sec ESV 2D 29.9 cm3 MV E/A 1.0 LA Dimen 2D 2.5 2.3 - 4.0 cm MV Decel Time 145 msec MV Decel [place] 3 MV E/A 1.0 Findings Left Ventricle: Normal left ventricular systolic function. Normal left ventricular cavity size. Normal left ventricular wall thickness. Ejection fraction is visually estimated at 60 %. Right Ventricle: Normal right ventricular size. Normal right ventricular systolic function. Left Atrium: The left atrium is normal in size. Right Atrium: The right atrium is normal in size. Mitral Valve: Normal appearance and function of the mitral valve with trace physiologic regurgitation. Aortic Valve: Normal appearance of the aortic valve. No significant aortic stenosis or insufficiency. Tricuspid Valve: Normal appearance and function of the tricuspid valve with trace physiologic regurgitation. Normal right ventricular systolic pressure. Pericardium: Normal pericardium with no significant pericardial effusion. Aorta: Normal aortic root. IVC: Inferior vena cava without respiratory collapse, however, patient on ventilator. Conclusions 1.Normal left ventricular systolic function. Normal left ventricular cavity size. Normal left ventricular wall thickness. Ejection fraction is visually estimated at 60 %. 2.Normal appearance and function of the mitral valve with trace physiologic regurgitation. 3.Normal appearance of the aortic valve. No significant aortic stenosis or insufficiency. 4.Normal appearance and function of the tricuspid valve with trace physiologic regurgitation. Normal right ventricular systolic pressure. Electronically Signed By: Alec Whiteside 02-Mar-2016 14:43:23 -0800 Patient Name: ANGIE COPPOLA Study Date: 02-Mar-[id number]
--- NOTE | 2016-03-02 15:04 | PN ---
Date/Time of Note Date/Time of Note DATE: 03/02/16 TIME: 15:00 Assessment/Plan VTE Prophylaxis VTE Prophylaxis Intervention: SCD's Lines/Catheters IV C[facility]ter Type (from [facility]): PICC Line Central line still needed: Yes Reason Cath still needed: other (indicate) (Neurogenic bladder) Assessment/Plan Chief Complaint/Hosp Course ASSESSMENT AND PLAN: - Severe sepsis with shock, most likely, secondary to urinary tract infection. Dr. Maciel is following patient in infectious disease consultation. Continue antibiotics per ID. Patient is currently on Meropenem, Vancomycin, Diflucan. Continue IV fluids ICU care. - Urinary tract infection per urinalysis. - Neurogenic bladder with suprapubic catheter. Status post suprapubic catheter change by Dr. Marquez, urology. - Chronic ventilator dependent respiratory failure. Dr. Ames is following patient in a pulmonology consultation. Continue ventilator support broncho dilators. - Dysphagia with a G-tube. Continue current tube feeding. Aspiration precautions. - Acute renal failure. The patient is followed by Dr. Wright in nephrology consultation. Continue IV fluids. Monitor BUN and creatinine. 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 - Sacral decubitus stage III. Continue offloading, continue current wound care. Continue sequential compression device for deep venous thrombosis prophylaxis and Protonix for peptic ulcer disease prophylaxis. Further recommendations based on clinical course. Plan of care discussed with Dr. Barreto. Problems: Subjective 24 Hr Interval Summary Free Text/Dictation Patient weaned off Ozzy-Synephrine drip in a.m., borderline hypotension, pending G-tube change. Pending video swallow eval per speech therapy's recommendation Exam/Review of Systems Vital Signs Vitals Vital Signs Date Time Temp Pulse Resp B/P Pulse Ox O2 Delivery O2 Flow Rate FiO2 03/02/16 12:00 64 03/02/16 11:30 17 91 50 03/02/16 04:30 103/63 Mechanical Ventilator 03/02/16 04:00 98.4 Intake and Output 03/01/16 03/01/16 03/02/16 15:00 23:00 07:00 Intake Total 100 ml 1362.5 ml 251 ml Output Total 920 ml 1265 ml 975 ml Balance -820 ml 97.5 ml -724 ml Exam GENERAL: A well-developed male, currently is awake, opens eyes in response to verbal stimuli. HEENT: Head is atraumatic, normocephalic, PERRLA. NECK: Patient has a tracheostomy at the base of the neck. CHEST: Scattered rhonchi bilaterally. There are no wheezes or rales noted. HEART: Normal S1, S2. No murmurs, gallops, clicks, rubs noted. ABDOMEN: Round, soft, nondistended. G-tube. EXTREMITIES: Lower extremity was contracted body habitus and muscle wasting, no edema. Pulses present. SKIN: Patient has a sacral decubitus stage III. No rash, petechiae noted. NEUROLOGIC: Patient is awake, opens eyes in response to verbal stimuli. Results Result Diagram: 03/02/16 0345 03/02/16 034 Results 24 hrs Laboratory Tests Test 03/02/16 03:45 Anion Gap 13 Basophils # 0.0 Basophils % 0.3 Blood Urea Nitrogen 34 H Calcium Level 8.2 L Carbon Dioxide Level 25 Chloride Level 109 Creatinine 1.69 H Eosinophils # 0.1 Eosinophils % 2.1 Glucose Level 84 # Hematocrit 26.6 L Hemoglobin 8.7 L Lymphocytes # 0.6 L Lymphocytes % 9.8 L Mean Corpuscular Hemoglobin 29.6 Mean Corpuscular Hemoglobin Concent 32.8 Mean Corpuscular Volume 90.2 Mean Platelet Volume 8.4 Monocytes # 0.6 Monocytes % 9.6 Neutrophils # 4.7 Neutrophils % 78.2 H Nucleated Red Blood Cells # 0.0 Nucleated Red Blood Cells % 0.0 Platelet Count 183 Potassium Level 4.6 Red Blood Count 2.95 L Red Cell Distribution Width 13.5 Sodium Level 142 Thyroid Stimulating Hormone (TSH) 1.470 White Blood Count 6.0 Medications Medications Current Medications Ondansetron HCl (Zofran Inj) 4 mg Q6H PRN IV NAUSEA AND/OR VOMITING Last administered on 02/27/16 12:46; Admin Dose 4 MG; Start 02/24/16 at 07:00 Acetaminophen (Tylenol Tab) 650 mg Q6H PRN PO PAIN LEVEL 1-3 OR FEVER Last administered on 02/25/16 08:41; Admin Dose 650 MG; Start 02/24/16 at 07:00 Morphine Sulfate (morphine) 2 mg Q4H PRN IV PAIN LEVEL 7-10 Last administered on 03/02/16 09:09; Admin Dose 2 MG; Start 02/24/16 at 07:00 Escitalopram Oxalate (Lexapro) 10 mg DAILY PO Last administered on 03/02/16 09 :10; Admin Dose 10 MG; Start 02/24/16 at 09:00 Magnesium Hydroxide (Milk Of Mag) 30 ml DAILY PRN PO CONSTIPATION; Start at 07:00 Multivitamins Therapeutic (Theragran) 1 tab DAILY PO Last administered on 09:10; Admin Dose 1 TAB; Start 02/24/16 at 09:00 Polyethylene Glycol (Miralax) 17 gm QHS PO Last administered on 02/29/16 20:08 ; Admin Dose 17 GM; Start 02/24/16 at 21:00 Risperidone (Risperdal) 0.5 mg BID PO Last administered on 03/02/16 09:09; Admin Dose 0.5 MG; Start 02/24/16 at 09:00 Hydromorphone HCl (Dilaudid) 0.5 mg Q6H PRN IV pain Last administered on 12:38; Admin Dose 0.5 MG; Start 02/24/16 at 16:00 Acetaminophen/ Hydrocodone Bitart ([place] (5/325)) 1 tab Q4H PRN GTB pain Last administered on 02/29/16 20:07; Admin Dose 1 TAB; Start 02/25/16 at 12:00 Zinc Sulfate (Zinc Sulfate) 220 mg DAILY GTB Last administered on 03/02/16 09: 10; Admin Dose 220 MG; Start 02/26/16 at 09:00 IV Flush (NS 10 ml) 10 ml PRN PRN IV IV PROTOCOL; Start 02/25/16 at 15:30 Mupirocin (Bactroban) 1 applic BID TOP Last administered on 03/02/16 09:10; Admin Dose 1 APPLIC; Start 02/26/16 at 18:30 Dextrose (D50w Syringe) 50 ml PRN PRN IV DECREASED GLUCOSE Last administered on 02/27/16 07:21; Admin Dose 50 ML; Start 02/27/16 at 07:00 Glycopyrrolate (Robinul) 1 mg TID GTB Last administered on 03/02/16 12:39; Admin Dose 1 MG; Start 02/27/16 at 13:00 Pantoprazole 40 mg 40 mg DAILY@06 IV Last administered on 03/02/16 05:48; Admin Dose 40 MG; Start 02/28/16 at 06:00 Phenylephrine HCl 40 mg/Dextrose 500 ml @ 75 mls/hr TITRATE IV Last administered on 03/01/16 16:42; Admin Dose 7.5 MLS/HR; Start 02/27/16 at 16:00 Meropenem 500 mg/ Sodium Chloride 100 ml @ 200 mls/hr Q12 IVPB Last administered on 03/02/16 09:13; Admin Dose 200 MLS/HR; Start 02/27/16 at 21:00 Potassium Chloride/Dextrose/ Sod Cl (D5-1/2ns + KCl 20 Meq) 1,000 ml @ 75 mls/ hr [id number] IV Last administered on 03/02/16 03:33; Admin Dose 75 MLS/HR; Start 02/28/16 at 10:30 Silver Nitrate (Silver Nitrate Swabs) 1 stick BID TOP Last administered on 03/02 09:10; Admin Dose 1 STICK; Start 03/01/16 at 10:30 ASISATOU DUNCAN Mar 02, 2016 15:04
--- NOTE | 2016-03-02 15:16 | PN ---
DATE: SUBJECTIVE: The patient is in ICU on ventilator support. OBJECTIVE: GENERAL: He is awake, alert, responsive, trying to talk and mouth his words. VITAL SIGNS: Stable. Blood pressure is 103/63, off Ozzy-Synephrine drip. Pulse rate is 109, respir ations 22, pulse oximetry shows 93% saturation. His temperature earlier this morning was 98.4. NECK: Tracheal secretions are clear. No bleeding is seen. HEART: Regular rhythm. CHEST: Breath sounds are heard bilaterally, somewhat diminished in the lower lung tierney, otherwise clear. ABDOMEN: Soft, not tender. He has been started on G-tube feedings. The patient has been seen by Sherry Krause in GI evaluation. Bowel sounds are normally present. He is tolerating G-tube feedings. EXTREMITIES: Show no edema. He is paraplegic. No spontaneous movements are seen in the lower extr emities. LABORATORY DATA: Shows sodium 142, potassium 4.6, BUN 34, creatinine 1.69. BUN has been gradually decreasing, but the creatinine is almost the same as before. Glucose is 84. CBC shows WBC 6000, he moglobin 8.7, hematocrit 26.6, platelets within normal limits, but WBC count has been gradually comi ng down. CULTURES: A lot of culture reports show blood culture coagulase-negative staph. Urine culture mixe d gram-negative and positive organisms. The patient is on meropenem. IMPRESSION: 1. Septic shock. 2. Urosepsis. 3. Chronic ventilator-dependent respiratory failure. 4. Chronic anemia. 5. Chronic kidney disease with acute kidney injury, gradually improving. 6. Status post spinal cord injury with paraplegia. 7. Status post tracheostomy. 8. Status post gastrostomy. RECOMMENDATIONS: 1. Continue long-term ventilator support. 2. Continue antibiotics as per infectious disease technical solutions consultant. 3. Continue hydration. 4. Continue G-tube feedings. 5. Continue DVT prophylaxis and GI prophylaxis. Dictated By: HUMBERTO PEREZ MD, SR/NTS Conf#: [id number] DID#: [id number]
[2016-03-02] MEDS: POLYETHYLENE GLYCOL 17 GM PACKET PO SCH (20:51)
[2016-03-02] MEDS: ZOLPIDEM 5 MG TAB PO PRN (20:51)
[2016-03-03] VITALS (62 sets, daily range): BP systolic 90–134; BP diastolic 61–94; PULSE 61–133; RESP 14–29
[2016-03-03] MEDS ORDERED: COLLAGENASE 30 GM TUBE TOP PRN (04:30)
[2016-03-03 05:10] LABS: BASOPHILS % 0.1 % (0.0-2.0); EOSINOPHILS # 0.1 10^3/ul (0.0-0.5); EOSINOPHILS % 2.6 % (0.0-7.0); HEMATOCRIT 26.1 % (42.0-52.0); HEMOGLOBIN 8.7 g/dl (14.0-18.0); LYMPHOCYTES # 0.5 10^3/ul (0.8-2.9); LYMPHOCYTES % 9.9 % (15.0-51.0); MEAN CORPUSCULAR HGB CONC 33.4 g/dl (32.0-37.0); MEAN CORPUSCULAR VOLUME 89.8 fl (82.0-101.0); MEAN PLATELET VOLUME 8.5 fl (7.4-10.4); MONOCYTE # 0.5 10^3/ul (0.3-0.9); MONOCYTES % 9.5 % (0.0-11.0); NEUTROPHIL # 4.3 10^3/ul (1.6-7.5); NEUTROPHILS % 77.9 % (39.0-77.0); PLATELET COUNT 171 10^3/UL (140-440); RED BLOOD COUNT 2.91 10^6/ul (4.70-6.10); RED CELL DISTRIBUTION WIDTH 13.3 % (11.5-14.5); UNCORRECTED WBC 5.5 10^3/ul (4.8-10.8); WHITE BLOOD COUNT 5.5 10^3/ul (4.8-10.8)
[2016-03-03 05:24] LABS: POTASSIUM 5.3 mmol/L (3.5-5.1)
[2016-03-03 05:27] LABS: CREATININE 1.68 mg/dl (0.61-1.24)
[2016-03-03 05:28] LABS: CALCIUM 8.3 mg/dl (8.4-10.2)
[2016-03-03] MEDS: HYDROmorphONE 1 MG/ML SYG IV PRN ×4 (05:53→22:46)
[2016-03-03] MEDS: PANTOPRAZOLE 40 MG INJ IV SCH (05:53)
[2016-03-03 06:06] LABS: CONDITION 1
--- NOTE | 2016-03-03 08:21 | CONS ---
Date/Time of Note Date/Time of Note DATE: 03/03/16 TIME: 08:18 Assessment/Plan Assessment/Plan Additional Assessment/Plan 1. Septic shock. 2. Urosepsis. 3. Chronic ventilator-dependent respiratory failure. 4. Chronic anemia. 5. Chronic kidney disease with acute kidney injury, gradually improving. 6. Status post spinal cord injury with paraplegia. 7. Status post tracheostomy. 8. Status post gastrostomy 9. Sinus wenkeback with juntional escape rhytm 10.S/P hypotension. RECOMMENDATIONS: 1. Continue long-term ventilator support. 2. Continue antibiotics as per infectious disease data power consultant. 3. Continue hydration. 4. Continue G-tube feedings. 5. Continue DVT prophylaxis and GI prophylaxis. 6. Avoid AV blockers due to juntional escape rhtyhm and wenkeback - no therpay necessary 7. Off pressors and EF is normal Consultation Date/Type/Reason Admit Date/Time Feb 24, 2016 at 05:06 Hx of Present Illness The patient is a 40-year-old, a 40-year-old male with a history of chronic paraplegia from cervical spine injury, trached on a vent, history of sepsis from pneumonia and urinary tract infection, and chronic kidney disease who was brought from a [facility] facility for hypoxia. Reportedly, he began to desaturate while he was at the f[facility] facility. He was suctioned and he was being bagged through his trach on arrival to the ER. Initial vital signs show blood pressure of 75/49, heart rate 113, respiratory rate 14, oxygen saturation 100% on 50% FIO2. Temperature was 99.3. Laboratory result was notable for a WBC of 14,000, hemoglobin 10.1, which is stable. Sodium 134, BUN 104 and creatinine 2.97 from 1.7 about 9 months ago. The patient received weight-based IV fluids and was started on vancomycin and cefepime. His urinalysis shows a severe UTI. Chest x-ray showed mild vascular congestion with no focal consolidation or pleural effusion. Of note, the patient was last admitted here in April of last year for sepsis secondary to pneumonia and a UTI. At that time, the patient was discharged to [place] with the intent to wean off the vent . The patient overnight in the ICU had bradycardia with heart block and as such, I was akded to see the patient in cardiac consultation but bp remains stable and off pressors at this time Constitutional: no complaints Social History Smoking Status: Never smoker Exam/Review of Systems Vital Signs Vitals Vital Signs Date Time Temp Pulse Resp B/P Pulse Ox O2 Delivery O2 Flow Rate FiO2 03/03/16 06:30 83 18 117/77 94 03/03/16 06:00 Mechanical Ventilator 03/03/16 05:00 30 03/03/16 04:00 98.5 Intake and Output 03/02/16 03/02/16 03/03/16 15:00 23:00 07:00 Intake Total 825 ml 1250 ml 980 ml Output Total 895 ml 975 ml 1125 ml Balance -70 ml 275 ml -145 ml Results Result Diagram: 03/03/16 0428 03/03/16 0428 Results 24 hrs Laboratory Tests Test 03/03/16 04:28 Anion Gap 11 Basophils # 0.0 Basophils % 0.1 Blood Urea Nitrogen 32 H Calcium Level 8.3 L Carbon Dioxide Level 24 Chloride Level 110 Creatinine 1.68 H Eosinophils # 0.1 Eosinophils % 2.6 Glucose Level 97 Hematocrit 26.1 L Hemoglobin 8.7 L Lymphocytes # 0.5 L Lymphocytes % 9.9 L Mean Corpuscular Hemoglobin 30.0 Mean Corpuscular Hemoglobin Concent 33.4 Mean Corpuscular Volume 89.8 Mean Platelet Volume 8.5 Monocytes # 0.5 Monocytes % 9.5 Neutrophils # 4.3 Neutrophils % 77.9 H Nucleated Red Blood Cells # 0.0 Nucleated Red Blood Cells % 0.0 Platelet Count 171 Potassium Level 5.3 H Red Blood Count 2.91 L Red Cell Distribution Width 13.3 Sodium Level 140 White Blood Count 5.5 Medications Medications Current Medications Ondansetron HCl (Zofran Inj) 4 mg Q6H PRN IV NAUSEA AND/OR VOMITING Last administered on 02/27/16 12:46; Admin Dose 4 MG; Start 02/24/16 at 07:00 Acetaminophen (Tylenol Tab) 650 mg Q6H PRN PO PAIN LEVEL 1-3 OR FEVER Last administered on 02/25/16 08:41; Admin Dose 650 MG; Start 02/24/16 at 07:00 Morphine Sulfate (morphine) 2 mg Q4H PRN IV PAIN LEVEL 7-10 Last administered on 03/02/16 20:41; Admin Dose 2 MG; Start 02/24/16 at 07:00 Escitalopram Oxalate (Lexapro) 10 mg DAILY PO Last administered on 03/02/16 09 :10; Admin Dose 10 MG; Start 02/24/16 at 09:00 Magnesium Hydroxide (Milk Of Mag) 30 ml DAILY PRN PO CONSTIPATION; Start at 07:00 Multivitamins Therapeutic (Theragran) 1 tab DAILY PO Last administered on 09:10; Admin Dose 1 TAB; Start 02/24/16 at 09:00 Polyethylene Glycol (Miralax) 17 gm QHS PO Last administered on 03/02/16 20:51 ; Admin Dose 17 GM; Start 02/24/16 at 21:00 Risperidone (Risperdal) 0.5 mg BID PO Last administered on 03/02/16 20:52; Admin Dose 0.5 MG; Start 02/24/16 at 09:00 Hydromorphone HCl (Dilaudid) 0.5 mg Q6H PRN IV pain Last administered on 05:53; Admin Dose 0.5 MG; Start 02/24/16 at 16:00 Acetaminophen/ Hydrocodone Bitart ([place] (5/325)) 1 tab Q4H PRN GTB pain Last administered on 02/29/16 20:07; Admin Dose 1 TAB; Start 02/25/16 at 12:00 Zinc Sulfate (Zinc Sulfate) 220 mg DAILY GTB Last administered on 03/02/16 09: 10; Admin Dose 220 MG; Start 02/26/16 at 09:00 IV Flush (NS 10 ml) 10 ml PRN PRN IV IV PROTOCOL; Start 02/25/16 at 15:30 Mupirocin (Bactroban) 1 applic BID TOP Last administered on 03/02/16 20:52; Admin Dose 1 APPLIC; Start 02/26/16 at 18:30 Dextrose (D50w Syringe) 50 ml PRN PRN IV DECREASED GLUCOSE Last administered on 02/27/16 07:21; Admin Dose 50 ML; Start 02/27/16 at 07:00 Glycopyrrolate (Robinul) 1 mg TID GTB Last administered on 03/02/16 20:51; Admin Dose 1 MG; Start 02/27/16 at 13:00 Pantoprazole 40 mg 40 mg DAILY@06 IV Last administered on 03/03/16 05:53; Admin Dose 40 MG; Start 02/28/16 at 06:00 Phenylephrine HCl 40 mg/Dextrose 500 ml @ 75 mls/hr TITRATE IV Last administered on 03/01/16 16:42; Admin Dose 7.5 MLS/HR; Start 02/27/16 at 16:00 Meropenem 500 mg/ Sodium Chloride 100 ml @ 200 mls/hr Q12 IVPB Last administered on 03/02/16 20:53; Admin Dose 200 MLS/HR; Start 02/27/16 at 21:00 Potassium Chloride/Dextrose/ Sod Cl (D5-1/2ns + KCl 20 Meq) 1,000 ml @ 75 mls/ hr [id number] IV Last administered on 03/02/16 18:12; Admin Dose 75 MLS/HR; Start 02/28/16 at 10:30 Silver Nitrate (Silver Nitrate Swabs) 1 stick BID TOP Last administered on 03/02 20:53; Admin Dose 1 STICK; Start 03/01/16 at 10:30 Collagenase (Santyl) 1 applic DAILY TOP ; Start 03/03/16 at 09:00 YIN RUSH MD Mar 03, 2016 08:21
[2016-03-03] MEDS: MEROPENEM 500 MG in SOD CHLORIDE 0.9% 100 ML IVPB SCH ×2 (09:00→20:46)
[2016-03-03] MEDS: RISPERIDONE 0.25 MG TAB PO SCH ×2 (09:09→20:48)
[2016-03-03] MEDS: ESCITALOPRAM 10 MG TAB PO SCH (09:09)
[2016-03-03] MEDS: GLYCOPYRROLATE 1 MG TAB GTB SCH ×3 (09:09→20:47)
[2016-03-03] MEDS: MULTIVITAMINS THERAPEUTIC TAB PO SCH (09:09)
[2016-03-03] MEDS: ZINC SULFATE 220 MG CAP GTB SCH (09:09)
[2016-03-03] MEDS: D5W-0.45 NACL + KCL 20 MEQ 1,000 ML IV SCH (09:09)
[2016-03-03] MEDS: MUPIROCIN 2% 22 GM OINT TOP SCH ×2 (09:10→20:52)
[2016-03-03] MEDS: SILVER NITRATE SWAB TOP SCH ×2 (09:12→20:54)
[2016-03-03] MEDS: COLLAGENASE 30 GM TUBE TOP SCH (09:12)
--- NOTE | 2016-03-03 09:46 | PN ---
DATE: 02/25/2016 SUBJECTIVE: no acute events overnight, awake, looks comfortable INDWELLINGS: SP catheter, PICC, T/P. Patient was started on cefepime. PHYSICAL EXAMINATION: GENERAL: This is a chronically ill-appearing middle-aged white man who is lying comfortably in bed. HEENT: Head atraumatic normocephalic. Sclerae anicteric. Buccal mucosa dry. S1, S2 Lungs CTA, diminished to bases Abdomen soft, +BT Extremities without cyanosis ASSESSMENT: 1. Sepsis. 2. Urinary tract infection as per urinalysis.. 4. Chronic respiratory failure. 5. Neurogenic bladder, status post suprapubic catheter placement. PLAN: Stable. We are going to continue current antibiotics. Send urine for culture if it hasn't been done. Dictated By: REGINALDO CHERY MULTIMEDIA JOURNALIST for ANTONELLA ARGUETA/QUE Conf#: [id number] DID#: [id number] MTDD
[2016-03-03] MEDS: morphine 2 MG INJ IV PRN ×2 (12:34→17:47)
--- NOTE | 2016-03-03 12:42 | PN ---
DATE: 03/03/2016 INFECTIOUS DISEASE PROGRESS NOTE SUBJECTIVE: No acute changes. The patient is alert, looks comfortable. Afebrile. Denies pain, di scomfort. ANTIMICROBIALS: Meropenem, status post vancomycin. WBC 5.5, neutrophils 77.9. BUN 32, creatinine 1.68. MICROBIOLOGY: No new cultures. INDWELLINGS: Trach, PEG, PICC line, and suprapubic catheter. PHYSICAL EXAMINATION: GENERAL: This is a chronically ill-appearing, middle-aged white man, who is awake, in no distress. HEENT: Head atraumatic, normocephalic. Sclerae anicteric. Buccal mucosa dry. NECK: Supple. Tracheostomy present. CHEST: Chest rise is symmetrical. Breath sounds diminished to the bases. HEART: S1, S2. ABDOMEN: Soft. Bowel tones present. EXTREMITIES: Wasted, contractured. Peripheral pulses palpable. ASSESSMENT: 1. Status post septic shock. 2. Urinary tract infection, status post new suprapubic catheter. 3. Chronic respiratory failure. 4. Dysphagia. 5. Neurogenic bladder. 6. Quadriplegia. PLAN: The patient remains stable, completing antibiotics. Pending discharge planning. Okay to dis charge on meropenem for a couple more days. Dictated By: REGINALDO CHERY WHIPPED TOPPING FINISHER for ANTONELLA ARGUETA/QUE Conf#: [id number] DID#: [id number]
--- NOTE | 2016-03-03 14:23 | CONS ---
Date/Time of Note Date/Time of Note DATE: 03/03/16 TIME: 14:21 Assessment/Plan Assessment/Plan Chief Complaint/Hosp Course IMPRESSION: The patient has: 1. Acute kidney injury.better 2. Sepsis. 3. Underlying prerenal azotemia. 4. Underlying acute tubular necrosis due to sepsis. 5. Anion gap metabolic acidosis. 6. Hyponatremia.better 7. Leukocytosis. 8. Anemia. 9. Urinary tract infection. 10. Lung congestion, possible underlying pneumonia. 11. Paraplegia. 12. Respiratory failure and tracheostomy. 13 hyperkalemia plan iv fluid ck labs renal stable dc kcl Problems: Consultation Date/Type/Reason Admit Date/Time Feb 24, 2016 at 05:06 Type of Consultation: renal Referring Provider: JOSÉ ANTONIO MIRZA MD 24 HR Interval Summary Constitutional: no complaints Exam/Review of Systems Vital Signs Vitals Vital Signs Date Time Temp Pulse Resp B/P Pulse Ox O2 Delivery O2 Flow Rate FiO2 03/03/16 14:00 81 20 117/74 100 Mechanical Ventilator 03/03/16 13:30 30 03/03/16 13:00 98.7 Intake and Output 03/02/16 03/02/16 03/03/16 15:00 23:00 07:00 Intake Total 825 ml 1250 ml 980 ml Output Total 895 ml 975 ml 1245 ml Balance -70 ml 275 ml -265 ml Exam Neck: supple Respiratory: clear to auscultation Cardiovascular: regular rate and rhythm Gastrointestinal: soft Musculoskeletal: nl extremities to inspection Results Result Diagram: 03/03/16 0428 03/03/16 0428 Results 24 hrs Laboratory Tests Test 03/03/16 04:28 Anion Gap 11 Basophils # 0.0 Basophils % 0.1 Blood Urea Nitrogen 32 H Calcium Level 8.3 L Carbon Dioxide Level 24 Chloride Level 110 Creatinine 1.68 H Eosinophils # 0.1 Eosinophils % 2.6 Glucose Level 97 Hematocrit 26.1 L Hemoglobin 8.7 L Lymphocytes # 0.5 L Lymphocytes % 9.9 L Mean Corpuscular Hemoglobin 30.0 Mean Corpuscular Hemoglobin Concent 33.4 Mean Corpuscular Volume 89.8 Mean Platelet Volume 8.5 Monocytes # 0.5 Monocytes % 9.5 Neutrophils # 4.3 Neutrophils % 77.9 H Nucleated Red Blood Cells # 0.0 Nucleated Red Blood Cells % 0.0 Platelet Count 171 Potassium Level 5.3 H Red Blood Count 2.91 L Red Cell Distribution Width 13.3 Sodium Level 140 White Blood Count 5.5 Medications Medications Current Medications Ondansetron HCl (Zofran Inj) 4 mg Q6H PRN IV NAUSEA AND/OR VOMITING Last administered on 02/27/16 12:46; Admin Dose 4 MG; Start 02/24/16 at 07:00 Acetaminophen (Tylenol Tab) 650 mg Q6H PRN PO PAIN LEVEL 1-3 OR FEVER Last administered on 02/25/16 08:41; Admin Dose 650 MG; Start 02/24/16 at 07:00 Morphine Sulfate (morphine) 2 mg Q4H PRN IV PAIN LEVEL 7-10 Last administered on 03/03/16 12:34; Admin Dose 2 MG; Start 02/24/16 at 07:00 Escitalopram Oxalate (Lexapro) 10 mg DAILY PO Last administered on 03/03/16 09 :09; Admin Dose 10 MG; Start 02/24/16 at 09:00 Magnesium Hydroxide (Milk Of Mag) 30 ml DAILY PRN PO CONSTIPATION; Start at 07:00 Multivitamins Therapeutic (Theragran) 1 tab DAILY PO Last administered on 09:09; Admin Dose 1 TAB; Start 02/24/16 at 09:00 Polyethylene Glycol (Miralax) 17 gm QHS PO Last administered on 03/02/16 20:51 ; Admin Dose 17 GM; Start 02/24/16 at 21:00 Risperidone (Risperdal) 0.5 mg BID PO Last administered on 03/03/16 09:09; Admin Dose 0.5 MG; Start 02/24/16 at 09:00 Hydromorphone HCl (Dilaudid) 0.5 mg Q6H PRN IV pain Last administered on 09:14; Admin Dose 0.5 MG; Start 02/24/16 at 16:00 Acetaminophen/ Hydrocodone Bitart ([place] (5/325)) 1 tab Q4H PRN GTB pain Last administered on 02/29/16 20:07; Admin Dose 1 TAB; Start 02/25/16 at 12:00 Zinc Sulfate (Zinc Sulfate) 220 mg DAILY GTB Last administered on 03/03/16 09: 09; Admin Dose 220 MG; Start 02/26/16 at 09:00 IV Flush (NS 10 ml) 10 ml PRN PRN IV IV PROTOCOL; Start 02/25/16 at 15:30 Mupirocin (Bactroban) 1 applic BID TOP Last administered on 03/03/16 09:10; Admin Dose 1 APPLIC; Start 02/26/16 at 18:30 Dextrose (D50w Syringe) 50 ml PRN PRN IV DECREASED GLUCOSE Last administered on 02/27/16 07:21; Admin Dose 50 ML; Start 02/27/16 at 07:00 Glycopyrrolate (Robinul) 1 mg TID GTB Last administered on 03/03/16 12:34; Admin Dose 1 MG; Start 02/27/16 at 13:00 Pantoprazole 40 mg 40 mg DAILY@06 IV Last administered on 03/03/16 05:53; Admin Dose 40 MG; Start 02/28/16 at 06:00 Phenylephrine HCl 40 mg/Dextrose 500 ml @ 75 mls/hr TITRATE IV Last administered on 03/01/16 16:42; Admin Dose 7.5 MLS/HR; Start 02/27/16 at 16:00 Meropenem 500 mg/ Sodium Chloride 100 ml @ 200 mls/hr Q12 IVPB Last administered on 03/03/16 09:00; Admin Dose 200 MLS/HR; Start 02/27/16 at 21:00 Potassium Chloride/Dextrose/ Sod Cl (D5-1/2ns + KCl 20 Meq) 1,000 ml @ 75 mls/ hr [id number] IV Last administered on 03/03/16 09:09; Admin Dose 75 MLS/HR; Start 02/28/16 at 10:30 Silver Nitrate (Silver Nitrate Swabs) 1 stick BID TOP Last administered on 03/03 09:12; Admin Dose 1 STICK; Start 03/01/16 at 10:30 Collagenase (Santyl) 1 applic DAILY TOP Last administered on 03/03/16 09:12; Admin Dose 1 APPLIC; Start 03/03/16 at 09:00 BRIANDA HIRSCH MD Mar 03, 2016 14:23
[2016-03-03] MEDS: SOD CHLORIDE 0.45% 1,000 ML IV SCH (14:32)
--- NOTE | 2016-03-03 16:40 | PN ---
DATE: 03/03/2016 FOLLOWUP NOTE The patient is in the ICU on continuous ventilator support due to . He is awake, alert and ab le to communicate. His breathing appears unlabored. His vital signs are stable. No temperature sp ikes. Temperature is 98.7. Blood pressure is 111/74, pulse 81, respirations are 20, pulse oximetry 100% saturation. All tracheal secretions are clear, no bleeding is seen. HEART: Regular rhythm. CHEST: Breath sounds are heard bilaterally, clear on both sides. ABDOMEN: Soft, nondistended, no localized tenderness is present. Bowel sounds are present. EXTREMITIES: Show no edema. He is paraplegic. LABORATORY TESTS: From today shows sodium 140, potassium 5.3, glucose 197, BUN , creatinine is 1.67. BUN and creatinine have been showing progressive improvement but the improvement seems to be slowing down and there may not be much improvement and this may be the baseline that results due to his underlying chronic kidney disease. CBC shows WBC of 5.5, hemoglobin 8.7, hematocrit 26.1, plat elets within normal limits. IMPRESSION: 1. Urosepsis. 2. Chronic ventilator dependent respiratory failure. 3. Chronic anemia. 4. Chronic kidney disease with acute kidney injury, improving. 5. Status post paraplegia. 6. Status post asthma. 7. Status post gastrostomy. RECOMMENDATIONS: 1. Continue terminal operations supervisor interim support. 2. Continue antibiotics as per the infectious disease statistical consultant. 3. Continue hydration. 4. Continue G tube feedings. 5. Continue deep venous thrombosis prophylaxis and gastrointestinal prophylaxis. Dictated By: HUMBERTO PEREZ MD, SR/QUE Conf#: [id number] DID#: [id number]
[2016-03-03] MEDS: POLYETHYLENE GLYCOL 17 GM PACKET PO SCH (20:47)
--- NOTE | 2016-03-03 21:38 | PN ---
Date/Time of Note Date/Time of Note DATE: 03/03/16 TIME: 21:34 Assessment/Plan VTE Prophylaxis VTE Prophylaxis Intervention: SCD's Lines/Catheters IV [facility]ter Type (from [facility] PICC Line Urinary Cath still in place: Yes Assessment/Plan Assessment/Plan - Severe sepsis with shock, most likely, secondary to urinary tract infection. Dr. Maciel is following patient in infectious disease consultation. Continue antibiotics per ID. Patient is currently on Meropenem, Vancomycin, Diflucan. Continue IV fluids ICU care. - Urinary tract infection per urinalysis. - Neurogenic bladder with suprapubic catheter. Status post suprapubic catheter change by Dr. Marquez, urology. - Chronic ventilator dependent respiratory failure. Dr. Ames is following patient in a pulmonology consultation. Continue ventilator support broncho dilators. - Dysphagia with a G-tube. Continue current tube feeding. Aspiration precautions. - Acute renal failure. The patient is followed by Dr. Wright in nephrology consultation. Continue IV fluids. Monitor BUN and creatinine. 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 - Sacral decubitus stage III. Continue offloading, continue current wound care. - Hyperkalemia - per Nephrology Continue sequential compression device for deep venous thrombosis prophylaxis and Protonix for peptic ulcer disease prophylaxis. Further recommendations based on clinical course. Total critical time spent 40 mins. Plan of care discussed with Dr. Barreto. Subjective 24 Hr Interval Summary Free Text/Dictation NAD, Awake when called by name, seems comfortable. Plan for Barium swallo /ST am. Afebrile. no new issues reported by staff. Constitutional: requiring IVF, requiring O2 Exam/Review of Systems Vital Signs Vitals Vital Signs Date Time Temp Pulse Resp B/P Pulse Ox O2 Delivery O2 Flow Rate FiO2 03/03/16 20:59 75 17 95 30 03/03/16 18:30 120/86 Mechanical Ventilator 03/03/16 17:30 98.5 Intake and Output 03/02/16 03/02/16 03/03/16 15:00 23:00 07:00 Intake Total 825 ml 1250 ml 980 ml Output Total 895 ml 975 ml 1245 ml Balance -70 ml 275 ml -265 ml Exam Constitutional: alert Psych: nl mood/affect Head: atraumatic Eyes: EOMI, PERRL, nl sclera ENMT: nl external ears & nose Neck: non-tender, other (trach intact) Respiratory: diminished breath sounds Cardiovascular: nl pulses Gastrointestinal: non-tender, other (GT INTACT), soft Musculoskeletal: muscle weakness Extremities: normal pulses Neurological: lethargic Skin: other (DECUBS) Lymph: nontender Results Result Diagram: 03/03/1642703/03/16427 Results 24 hrs Laboratory Tests Test 03/03/16 04:28 Anion Gap 11 Basophils # 0.0 Basophils % 0.1 Blood Urea Nitrogen 32 H Calcium Level 8.3 L Carbon Dioxide Level 24 Chloride Level 110 Creatinine 1.68 H Eosinophils # 0.1 Eosinophils % 2.6 Glucose Level 97 Hematocrit 26.1 L Hemoglobin 8.7 L Lymphocytes # 0.5 L Lymphocytes % 9.9 L Mean Corpuscular Hemoglobin 30.0 Mean Corpuscular Hemoglobin Concent 33.4 Mean Corpuscular Volume 89.8 Mean Platelet Volume 8.5 Monocytes # 0.5 Monocytes % 9.5 Neutrophils # 4.3 Neutrophils % 77.9 H Nucleated Red Blood Cells # 0.0 Nucleated Red Blood Cells % 0.0 Platelet Count 171 Potassium Level 5.3 H Red Blood Count 2.91 L Red Cell Distribution Width 13.3 Sodium Level 140 White Blood Count 5.5 Medications Medications Current Medications Ondansetron HCl (Zofran Inj) 4 mg Q6H PRN IV NAUSEA AND/OR VOMITING Last administered on 02/27/16 12:46; Admin Dose 4 MG; Start 02/24/16 at 07:00 Acetaminophen (Tylenol Tab) 650 mg Q6H PRN PO PAIN LEVEL 1-3 OR FEVER Last administered on 02/25/16 08:41; Admin Dose 650 MG; Start 02/24/16 at 07:00 Morphine Sulfate (morphine) 2 mg Q4H PRN IV PAIN LEVEL 7-10 Last administered on 03/03/16 17:47; Admin Dose 2 MG; Start 02/24/16 at 07:00 Escitalopram Oxalate (Lexapro) 10 mg DAILY PO Last administered on 03/03/16 09 :09; Admin Dose 10 MG; Start 02/24/16 at 09:00 Magnesium Hydroxide (Milk Of Mag) 30 ml DAILY PRN PO CONSTIPATION; Start at 07:00 Multivitamins Therapeutic (Theragran) 1 tab DAILY PO Last administered on 09:09; Admin Dose 1 TAB; Start 02/24/16 at 09:00 Polyethylene Glycol (Miralax) 17 gm QHS PO Last administered on 03/02/16 20:51 ; Admin Dose 17 GM; Start 02/24/16 at 21:00 Risperidone (Risperdal) 0.5 mg BID PO Last administered on 03/03/16 09:09; Admin Dose 0.5 MG; Start 02/24/16 at 09:00 Hydromorphone HCl (Dilaudid) 0.5 mg Q6H PRN IV pain Last administered on 14:26; Admin Dose 0.5 MG; Start 02/24/16 at 16:00 Acetaminophen/ Hydrocodone Bitart ([place] (5/325)) 1 tab Q4H PRN GTB pain Last administered on 02/29/16 20:07; Admin Dose 1 TAB; Start 02/25/16 at 12:00 Zinc Sulfate (Zinc Sulfate) 220 mg DAILY GTB Last administered on 03/03/16 09: 09; Admin Dose 220 MG; Start 02/26/16 at 09:00 IV Flush (NS 10 ml) 10 ml PRN PRN IV IV PROTOCOL; Start 02/25/16 at 15:30 Mupirocin (Bactroban) 1 applic BID TOP Last administered on 03/03/16 20:52; Admin Dose 1 APPLIC; Start 02/26/16 at 18:30 Dextrose (D50w Syringe) 50 ml PRN PRN IV DECREASED GLUCOSE Last administered on 02/27/16 07:21; Admin Dose 50 ML; Start 02/27/16 at 07:00 Glycopyrrolate (Robinul) 1 mg TID GTB Last administered on 03/03/16 12:34; Admin Dose 1 MG; Start 02/27/16 at 13:00 Pantoprazole 40 mg 40 mg DAILY@06 IV Last administered on 03/03/16 05:53; Admin Dose 40 MG; Start 02/28/16 at 06:00 Phenylephrine HCl 40 mg/Dextrose 500 ml @ 75 mls/hr TITRATE IV Last administered on 03/01/16 16:42; Admin Dose 7.5 MLS/HR; Start 02/27/16 at 16:00 Meropenem/Sodium Chloride (Merrem/NS) 100 ml @ 200 mls/hr Q12 IVPB Last administered on 03/03/16 20:46; Admin Dose 200 MLS/HR; Start 02/27/16 at 21:00 Silver Nitrate (Silver Nitrate Swabs) 1 stick BID TOP Last administered on 03/03 20:54; Admin Dose 1 STICK; Start 03/01/16 at 10:30 Collagenase 1 applic 1 applic DAILY TOP Last administered on 03/03/16 09:12; Admin Dose 1 APPLIC; Start 03/03/16 at 09:00 Sodium Chloride (1/2 NS) 1,000 ml @ 50 mls/hr Q20H IV Last administered on 14:32; Admin Dose 50 MLS/HR; Start 03/03/16 at 14:30 NAE VELAZCO Mar 03, 2016 21:38
[2016-03-04] VITALS (51 sets, daily range): BP systolic 100–155; BP diastolic 61–106; PULSE 60–124; RESP 14–30
[2016-03-04] MEDS: morphine 2 MG INJ IV PRN ×4 (02:09→15:58)
[2016-03-04 05:30] LABS: POTASSIUM 4.1 mmol/L (3.5-5.1)
[2016-03-04 05:33] LABS: CREATININE 1.38 mg/dl (0.61-1.24)
[2016-03-04 05:34] LABS: CALCIUM 6.6 mg/dl (8.4-10.2)
[2016-03-04] MEDS: PANTOPRAZOLE 40 MG INJ IV SCH (06:34)
[2016-03-04] MEDS: ZINC SULFATE 220 MG CAP GTB SCH (08:22)
[2016-03-04] MEDS: RISPERIDONE 0.25 MG TAB PO SCH ×2 (08:22→21:10)
[2016-03-04] MEDS: GLYCOPYRROLATE 1 MG TAB GTB SCH ×3 (08:22→21:12)
[2016-03-04] MEDS: ESCITALOPRAM 10 MG TAB PO SCH (08:22)
[2016-03-04] MEDS: MULTIVITAMINS THERAPEUTIC TAB PO SCH (08:23)
[2016-03-04] MEDS: MEROPENEM 500 MG in SOD CHLORIDE 0.9% 100 ML IVPB SCH ×2 (09:09→21:09)
[2016-03-04] MEDS: COLLAGENASE 30 GM TUBE TOP SCH (09:09)
[2016-03-04] MEDS: MUPIROCIN 2% 22 GM OINT TOP SCH ×2 (09:09→21:09)
[2016-03-04 11:05] LABS: CONDITION 1; EOSINOPHILS # 0.1 10^3/ul (0.0-0.5); EOSINOPHILS % 1.8 % (0.0-7.0); HEMATOCRIT 22.3 % (42.0-52.0); HEMOGLOBIN 7.4 g/dl (14.0-18.0); LH ANALYZER COMMENTS 1; LYMPHOCYTES # 0.6 10^3/ul (0.8-2.9); MEAN CORPUSCULAR HEMOGLOBIN 29.9 pg (29.0-33.0); MEAN CORPUSCULAR HGB CONC 33.1 g/dl (32.0-37.0); MEAN CORPUSCULAR VOLUME 90.3 fl (82.0-101.0); MEAN PLATELET VOLUME 9.5 fl (7.4-10.4); MONOCYTE # 0.4 10^3/ul (0.3-0.9); MONOCYTES % 9.6 % (0.0-11.0); NEUTROPHIL # 3.5 10^3/ul (1.6-7.5); NEUTROPHILS % 75.6 % (39.0-77.0); PLATELET COUNT 129 10^3/UL (140-440); RED BLOOD COUNT 2.47 10^6/ul (4.70-6.10); UNCORRECTED WBC 4.7 10^3/ul (4.8-10.8); WHITE BLOOD COUNT 4.7 10^3/ul (4.8-10.8)
[2016-03-04] MEDS: SOD CHLORIDE 0.45% 1,000 ML IV SCH (11:13)
[2016-03-04] MEDS ORDERED: ALTEPLASE (CATHFLO) 2 MG INJ CATHETER ONE (12:00)
--- NOTE | 2016-03-04 12:14 | PN ---
DATE: 03/04/2016 INFECTIOUS DISEASE PROGRESS NOTE SUBJECTIVE: The patient is alert, looks comfortable, feels good. Denies pain, discomfort. No feve rs. ANTIMICROBIALS: He is on meropenem. INDWELLINGS: Trach, PEG, suprapubic catheter, PICC line placed on February 24. PHYSICAL EXAMINATION: GENERAL: Chronically ill-appearing, middle-aged man in no distress. HEENT: Head atraumatic, normocephalic. Sclerae anicteric. Buccal mucosa pink. NECK: Supple, tracheostomy present. CHEST: Rise symmetrical. Breath sounds diminished to bases. HEART: S1, S2. ABDOMEN: Soft. Bowel sounds present. EXTREMITIES: Wasted, contractured. ASSESSMENT: 1. Status post septic shock. 2. Urinary tract infection as per urinalysis, so far 3 urine cultures were consistent with contamin ated specimen. The patient has new suprapubic catheter. 3. Chronic respiratory failure. 4. Incomplete quadriplegia. 5. Neurogenic bladder. PLAN: The patient remains stable. We are going to repeat urine culture today. Continue him on Vicenta rem for now. The patient is scheduled for swallow evaluation today. Dictated By: REGINALDO CHERY BLOCK PAVER for ANTONELLA ARGUETA/QUE Conf#: [id number] DID#: [id number]
[2016-03-04 13:03] LABS: HEMATOCRIT 26.9 % (42.0-52.0)
[2016-03-04] MEDS: SILVER NITRATE SWAB TOP SCH ×2 (14:08→21:00)
--- NOTE | 2016-03-04 14:26 | PN ---
Date/Time of Note Date/Time of Note DATE: 03/04/16 TIME: 14:18 Assessment/Plan VTE Prophylaxis VTE Prophylaxis Intervention: SCD's Lines/Catheters IV [facility] Type (from [facility]): PICC Line Central line still needed: Yes Urinary Cath still in place: Yes Reason Cath still needed: urinary retention Assessment/Plan Chief Complaint/Hosp Course ASSESSMENT AND PLAN: - Severe sepsis with shock, most likely, secondary to urinary tract infection. Dr. Maciel is following patient in infectious disease consultation. Continue antibiotics per ID. Patient is currently on Meropenem, Vancomycin, Diflucan. Continue IV fluids. - Urinary tract infection per urinalysis. - Neurogenic bladder with suprapubic catheter. Status post suprapubic catheter change by Dr. Marquez, urology. - Chronic ventilator dependent respiratory failure. Dr. Ames is following patient in a pulmonology consultation. Continue ventilator support broncho dilators. - Dysphagia with a G-tube. Continue current tube feeding. Aspiration precautions. - Acute renal failure. The patient is followed by Dr. Wright in nephrology consultation. Continue IV fluids. Monitor BUN and creatinine. 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 - Sacral decubitus stage III. Continue offloading, continue current wound care. Transfer to [facility] Continue sequential compression device for deep venous thrombosis prophylaxis and Protonix for peptic ulcer disease prophylaxis. Further recommendations based on clinical course. Plan of care discussed with Dr. Barreto. Problems: Subjective 24 Hr Interval Summary Free Text/Dictation No fever, pending GT replacement.Repeat Hgb is 9. Exam/Review of Systems Vital Signs Vitals Vital Signs Date Time Temp Pulse Resp B/P Pulse Ox O2 Delivery O2 Flow Rate FiO2 03/04/16 12:30 72 20 96 40 03/04/16 11:00 155/106 Mechanical Ventilator 03/04/16 08:00 97.7 Intake and Output 03/03/16 03/03/16 03/04/16 15:00 23:00 07:00 Intake Total 500 ml 500 ml 400 ml Output Total 930 ml 1635 ml 800 ml Balance -430 ml -1135 ml -400 ml Exam GENERAL: A well-developed male, currently is awake, opens eyes in response to verbal stimuli. HEENT: Head is atraumatic, normocephalic, PERRLA. NECK: Patient has a tracheostomy at the base of the neck. CHEST: Scattered rhonchi bilaterally. There are no wheezes or rales noted. HEART: Normal S1, S2. No murmurs, gallops, clicks, rubs noted. ABDOMEN: Round, soft, nondistended. G-tube. EXTREMITIES: Lower extremity was contracted body habitus and muscle wasting, no edema. Pulses present. SKIN: Patient has a sacral decubitus stage III. No rash, petechiae noted. NEUROLOGIC: Patient is awake, opens eyes in response to verbal stimuli. Results Result Diagram: 03/04/16 1143 03/04/16 0400 Results 24 hrs Laboratory Tests Test 03/04/16 04:00 03/04/16 09:14 03/04/16 11:43 Anion Gap 11 Basophils # 0.0 Basophils % 0.0 Blood Morphology Comment Blood Urea Nitrogen 25 H Calcium Level 6.6 L Carbon Dioxide Level 19 L Chloride Level 107 Creatinine 1.38 H Eosinophils # 0.1 Eosinophils % 1.8 Glucose Level 63 #L Hematocrit 22.3 L 26.9 #L Hemoglobin 7.4 L 9.0 #L Lymphocytes # 0.6 L Lymphocytes % 13.0 L Mean Corpuscular Hemoglobin 29.9 Mean Corpuscular Hemoglobin Concent 33.1 Mean Corpuscular Volume 90.3 Mean Platelet Volume 9.5 Monocytes # 0.4 Monocytes % 9.6 Neutrophils # 3.5 Neutrophils % 75.6 Nucleated Red Blood Cells # 0.0 Nucleated Red Blood Cells % 0.0 Platelet Count 129 #L Potassium Level 4.1 Red Blood Count 2.47 L Red Cell Distribution Width 14.0 Sodium Level 133 L White Blood Count 4.7 L Bedside Glucose 71 Medications Medications Current Medications Ondansetron HCl (Zofran Inj) 4 mg Q6H PRN IV NAUSEA AND/OR VOMITING Last administered on 02/27/16 12:46; Admin Dose 4 MG; Start 02/24/16 at 07:00 Acetaminophen (Tylenol Tab) 650 mg Q6H PRN PO PAIN LEVEL 1-3 OR FEVER Last administered on 02/25/16 08:41; Admin Dose 650 MG; Start 02/24/16 at 07:00 Morphine Sulfate (morphine) 2 mg Q4H PRN IV PAIN LEVEL 7-10 Last administered on 03/04/16 11:16; Admin Dose 2 MG; Start 02/24/16 at 07:00 Escitalopram Oxalate (Lexapro) 10 mg DAILY PO Last administered on 03/03/16 09 :09; Admin Dose 10 MG; Start 02/24/16 at 09:00 Magnesium Hydroxide (Milk Of Mag) 30 ml DAILY PRN PO CONSTIPATION; Start at 07:00 Multivitamins Therapeutic (Theragran) 1 tab DAILY PO Last administered on 09:09; Admin Dose 1 TAB; Start 02/24/16 at 09:00 Polyethylene Glycol (Miralax) 17 gm QHS PO Last administered on 03/02/16 20:51 ; Admin Dose 17 GM; Start 02/24/16 at 21:00 Risperidone (Risperdal) 0.5 mg BID PO Last administered on 03/03/16 09:09; Admin Dose 0.5 MG; Start 02/24/16 at 09:00 Hydromorphone HCl (Dilaudid) 0.5 mg Q6H PRN IV pain Last administered on 22:46; Admin Dose 0.5 MG; Start 02/24/16 at 16:00 Acetaminophen/ Hydrocodone Bitart ([place] (5/325)) 1 tab Q4H PRN GTB pain Last administered on 02/29/16 20:07; Admin Dose 1 TAB; Start 02/25/16 at 12:00 Zinc Sulfate (Zinc Sulfate) 220 mg DAILY GTB Last administered on 03/03/16 09: 09; Admin Dose 220 MG; Start 02/26/16 at 09:00 IV Flush (NS 10 ml) 10 ml PRN PRN IV IV PROTOCOL; Start 02/25/16 at 15:30 Mupirocin (Bactroban) 1 applic BID TOP Last administered on 03/04/16 09:09; Admin Dose 1 APPLIC; Start 02/26/16 at 18:30 Dextrose (D50w Syringe) 50 ml PRN PRN IV DECREASED GLUCOSE Last administered on 02/27/16 07:21; Admin Dose 50 ML; Start 02/27/16 at 07:00 Glycopyrrolate (Robinul) 1 mg TID GTB Last administered on 03/03/16 12:34; Admin Dose 1 MG; Start 02/27/16 at 13:00 Pantoprazole 40 mg 40 mg DAILY@06 IV Last administered on 03/04/16 06:34; Admin Dose 40 MG; Start 02/28/16 at 06:00 Phenylephrine HCl 40 mg/Dextrose 500 ml @ 75 mls/hr TITRATE IV Last administered on 03/01/16 16:42; Admin Dose 7.5 MLS/HR; Start 02/27/16 at 16:00 Meropenem/Sodium Chloride (Merrem/NS) 100 ml @ 200 mls/hr Q12 IVPB Last administered on 03/04/16 09:09; Admin Dose 200 MLS/HR; Start 02/27/16 at 21:00 Silver Nitrate (Silver Nitrate Swabs) 1 stick BID TOP Last administered on 03/04 14:08; Admin Dose 1 STICK; Start 03/01/16 at 10:30 Collagenase 1 applic 1 applic DAILY TOP Last administered on 03/04/16 09:09; Admin Dose 1 APPLIC; Start 03/03/16 at 09:00 Sodium Chloride (1/2 NS) 1,000 ml @ 50 mls/hr Q20H IV Last administered on 11:13; Admin Dose 50 MLS/HR; Start 03/03/16 at 14:30 AISSATOU DUNCAN Mar 04, 2016 14:26
--- NOTE | 2016-03-04 15:01 | PN ---
DATE: 03/04/2016 SUBJECTIVE: The patient is in ICU on the ventilator support long-term through tracheostomy. He is awake, responsive. He has a stable vital signs. PHYSICAL EXAMINATION: VITAL SIGNS: Temperature 97.7, blood pressure 155/106, respiratory rate is 28. Pulse oximetry show s 94% to 97% saturation. His heart rate is 82 showing sinus rhythm. NECK: Tracheal secretions are clear. No bleeding is seen. HEART: Regular rhythm. CHEST: Breath sounds are diminished in both the lower lung [place] otherwise clear. ABDOMEN: Soft, nondistended with normal bowel sounds. EXTREMITIES: No edema. He is paraplegic. LABORATORY DATA: From today shows sodium 133, potassium 4.1, bicarbonate of 19, BUN is 25, creatini ne 1.38. BUN and creatinine have been progressively decreasing. Glucose is 71. The CBC results sh owed WBC 4700, hemoglobin 9, hematocrit 26.9, platelets slightly decreased at 129,000. IMPRESSION: 1. Urosepsis. 2. Chronic ventilator dependent respiratory failure. 3. Chronic anemia. 4. Chronic kidney disease with acute kidney injury, improving. 5. Status post paraplegia. 6. Status post tracheostomy. 7. Status post gastrostomy. RECOMMENDATIONS 1. Continue long-term ventilator support. 2. Continue antibiotics as prescribed by the infectious disease data consultant. 3. Continue G-tube feedings of hydration. 4. Continue deep vein thrombosis prophylaxis and gastrointestinal prophylaxis. Dictated By: HUMBERTO PEREZ MD, SR/QUE Conf#: [id number] DID#: [id number]
--- NOTE | 2016-03-04 16:15 | CONS ---
Date/Time of Note Date/Time of Note DATE: 03/04/16 TIME: 16:14 Assessment/Plan Assessment/Plan Chief Complaint/Hosp Course IMPRESSION: The patient has: 1. Acute kidney injury.better 2. Sepsis. 3. Underlying prerenal azotemia. 4. Underlying acute tubular necrosis due to sepsis. 5. Anion gap metabolic acidosis. 6. Hyponatremia.better 7. Leukocytosis. 8. Anemia. 9. Urinary tract infection. 10. peg 11. Paraplegia. 12. Respiratory failure and tracheostomy. 13 hyperkalemia plan iv fluid ck labs renal stable Problems: Consultation Date/Type/Reason Admit Date/Time Feb 24, 2016 at 05:06 Type of Consultation: renal Referring Provider: JOSÉ ANTONIO MIRZA MD 24 HR Interval Summary Constitutional: no complaints Exam/Review of Systems Vital Signs Vitals Vital Signs Date Time Temp Pulse Resp B/P Pulse Ox O2 Delivery O2 Flow Rate FiO2 03/04/16 12:30 72 20 96 40 03/04/16 11:00 155/106 Mechanical Ventilator 03/04/16 08:00 97.7 Intake and Output 03/03/16 03/03/16 03/04/16 15:00 23:00 07:00 Intake Total 500 ml 500 ml 400 ml Output Total 930 ml 1635 ml 800 ml Balance -430 ml -1135 ml -400 ml Exam Neck: supple Respiratory: clear to auscultation Cardiovascular: regular rate and rhythm Gastrointestinal: soft Musculoskeletal: nl extremities to inspection Extremities: normal pulses Results Result Diagram: 03/04/16 1143 03/04/16 0400 Results 24 hrs Laboratory Tests Test 03/04/16 04:00 03/04/16 09:14 03/04/16 11:43 Anion Gap 11 Basophils # 0.0 Basophils % 0.0 Blood Morphology Comment Blood Urea Nitrogen 25 H Calcium Level 6.6 L Carbon Dioxide Level 19 L Chloride Level 107 Creatinine 1.38 H Eosinophils # 0.1 Eosinophils % 1.8 Glucose Level 63 #L Hematocrit 22.3 L 26.9 #L Hemoglobin 7.4 L 9.0 #L Lymphocytes # 0.6 L Lymphocytes % 13.0 L Mean Corpuscular Hemoglobin 29.9 Mean Corpuscular Hemoglobin Concent 33.1 Mean Corpuscular Volume 90.3 Mean Platelet Volume 9.5 Monocytes # 0.4 Monocytes % 9.6 Neutrophils # 3.5 Neutrophils % 75.6 Nucleated Red Blood Cells # 0.0 Nucleated Red Blood Cells % 0.0 Platelet Count 129 #L Potassium Level 4.1 Red Blood Count 2.47 L Red Cell Distribution Width 14.0 Sodium Level 133 L White Blood Count 4.7 L Bedside Glucose 71 Medications Medications Current Medications Ondansetron HCl (Zofran Inj) 4 mg Q6H PRN IV NAUSEA AND/OR VOMITING Last administered on 02/27/16 12:46; Admin Dose 4 MG; Start 02/24/16 at 07:00 Acetaminophen (Tylenol Tab) 650 mg Q6H PRN PO PAIN LEVEL 1-3 OR FEVER Last administered on 02/25/16 08:41; Admin Dose 650 MG; Start 02/24/16 at 07:00 Morphine Sulfate (morphine) 2 mg Q4H PRN IV PAIN LEVEL 7-10 Last administered on 03/04/16 15:58; Admin Dose 2 MG; Start 02/24/16 at 07:00 Escitalopram Oxalate (Lexapro) 10 mg DAILY PO Last administered on 03/03/16 09 :09; Admin Dose 10 MG; Start 02/24/16 at 09:00 Magnesium Hydroxide (Milk Of Mag) 30 ml DAILY PRN PO CONSTIPATION; Start at 07:00 Multivitamins Therapeutic (Theragran) 1 tab DAILY PO Last administered on 09:09; Admin Dose 1 TAB; Start 02/24/16 at 09:00 Polyethylene Glycol (Miralax) 17 gm QHS PO Last administered on 03/02/16 20:51 ; Admin Dose 17 GM; Start 02/24/16 at 21:00 Risperidone (Risperdal) 0.5 mg BID PO Last administered on 03/03/16 09:09; Admin Dose 0.5 MG; Start 02/24/16 at 09:00 Hydromorphone HCl (Dilaudid) 0.5 mg Q6H PRN IV pain Last administered on 22:46; Admin Dose 0.5 MG; Start 02/24/16 at 16:00 Acetaminophen/ Hydrocodone Bitart ([place] (5/325)) 1 tab Q4H PRN GTB pain Last administered on 02/29/16 20:07; Admin Dose 1 TAB; Start 02/25/16 at 12:00 Zinc Sulfate (Zinc Sulfate) 220 mg DAILY GTB Last administered on 03/03/16 09: 09; Admin Dose 220 MG; Start 02/26/16 at 09:00 IV Flush (NS 10 ml) 10 ml PRN PRN IV IV PROTOCOL; Start 02/25/16 at 15:30 Mupirocin (Bactroban) 1 applic BID TOP Last administered on 03/04/16 09:09; Admin Dose 1 APPLIC; Start 02/26/16 at 18:30 Dextrose (D50w Syringe) 50 ml PRN PRN IV DECREASED GLUCOSE Last administered on 02/27/16 07:21; Admin Dose 50 ML; Start 02/27/16 at 07:00 Glycopyrrolate (Robinul) 1 mg TID GTB Last administered on 03/03/16 12:34; Admin Dose 1 MG; Start 02/27/16 at 13:00 Pantoprazole 40 mg 40 mg DAILY@06 IV Last administered on 03/04/16 06:34; Admin Dose 40 MG; Start 02/28/16 at 06:00 Phenylephrine HCl 40 mg/Dextrose 500 ml @ 75 mls/hr TITRATE IV Last administered on 03/01/16 16:42; Admin Dose 7.5 MLS/HR; Start 02/27/16 at 16:00 Meropenem/Sodium Chloride (Merrem/NS) 100 ml @ 200 mls/hr Q12 IVPB Last administered on 03/04/16 09:09; Admin Dose 200 MLS/HR; Start 02/27/16 at 21:00 Silver Nitrate (Silver Nitrate Swabs) 1 stick BID TOP Last administered on 03/04 14:08; Admin Dose 1 STICK; Start 03/01/16 at 10:30 Collagenase 1 applic 1 applic DAILY TOP Last administered on 03/04/16 09:09; Admin Dose 1 APPLIC; Start 03/03/16 at 09:00 Sodium Chloride (1/2 NS) 1,000 ml @ 50 mls/hr Q20H IV Last administered on 11:13; Admin Dose 50 MLS/HR; Start 03/03/16 at 14:30 BRIANDA HIRSCH MD Mar 04, 2016 16:15
--- NOTE | 2016-03-04 16:20 | PN ---
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 Reportedly, he began to desaturate while he was at the assisted facility. He was suctioned and he was being bagged through his trach on arrival to the ER. Initial vital signs show blood pressure of 75/49, heart rate 113, respiratory rate 14, oxygen saturation 100% on 50% FIO2. Temperature was 99.3. Laboratory result was notable for a WBC of 14,000, hemoglobin 10.1, which is stable. Sodium 134, BUN 104 and creatinine 2.97 from 1.7 about 9 months ago. The patient received weight-based IV fluids and was started on vancomycin and cefepime. His urinalysis shows a severe UTI. Chest x-ray showed mild vascular congestion with no focal consolidation or pleural effusion. Of note, the patient was last admitted here in April of last year for sepsis secondary to pneumonia and a UTI. At that time, the patient was discharged to [place] with the intent to wean off the vent . The patient overnight in the ICU had bradycardia with heart block and as such, I was akded to see the patient in cardiac consultation but bp remains stable and off pressors at this time Problems: Assessment/Plan 1. Septic shock. 2. Urosepsis. 3. Chronic ventilator-dependent respiratory failure. 4. Chronic anemia. 5. Chronic kidney disease with acute kidney injury, gradually improving. 6. Status post spinal cord injury with paraplegia. 7. Status post tracheostomy. 8. Status post gastrostomy 9. Sinus wenkeback with juntional escape rhytm 10.S/P hypotension. RECOMMENDATIONS: 1. Continue long-term ventilator support. 2. Continue antibiotics as per infectious disease clinical documentation consultant. 3. Continue hydration. 4. Continue G-tube feedings. 5. Continue DVT prophylaxis and GI prophylaxis. 6. Avoid AV blockers due to juntional escape rhtyhm and wenkeback - no therpay necessary 7. Off pressors and EF is normal Subjective 24 Hr Interval Summary Free Text/Dictation the aptient responsive and stable Exam/Review of Systems Vital Signs Vitals Vital Signs Date Time Temp Pulse Resp B/P Pulse Ox O2 Delivery O2 Flow Rate FiO2 03/04/16 16:00 97.7 90 20 132/90 91 Mechanical Ventilator 03/04/16 12:30 40 Intake and Output 03/03/16 03/03/16 03/04/16 15:00 23:00 07:00 Intake Total 500 ml 500 ml 400 ml Output Total 930 ml 1635 ml 800 ml Balance -430 ml -1135 ml -400 ml Results Result Diagram: 03/04/16 1143 03/04/16 0400 Results 24 hrs Laboratory Tests Test 03/04/16 04:00 03/04/16 09:14 03/04/16 11:43 Anion Gap 11 Basophils # 0.0 Basophils % 0.0 Blood Morphology Comment Blood Urea Nitrogen 25 H Calcium Level 6.6 L Carbon Dioxide Level 19 L Chloride Level 107 Creatinine 1.38 H Eosinophils # 0.1 Eosinophils % 1.8 Glucose Level 63 #L Hematocrit 22.3 L 26.9 #L Hemoglobin 7.4 L 9.0 #L Lymphocytes # 0.6 L Lymphocytes % 13.0 L Mean Corpuscular Hemoglobin 29.9 Mean Corpuscular Hemoglobin Concent 33.1 Mean Corpuscular Volume 90.3 Mean Platelet Volume 9.5 Monocytes # 0.4 Monocytes % 9.6 Neutrophils # 3.5 Neutrophils % 75.6 Nucleated Red Blood Cells # 0.0 Nucleated Red Blood Cells % 0.0 Platelet Count 129 #L Potassium Level 4.1 Red Blood Count 2.47 L Red Cell Distribution Width 14.0 Sodium Level 133 L White Blood Count 4.7 L Bedside Glucose 71 Medications Medications Current Medications Ondansetron HCl (Zofran Inj) 4 mg Q6H PRN IV NAUSEA AND/OR VOMITING Last administered on 02/27/16 12:46; Admin Dose 4 MG; Start 02/24/16 at 07:00 Acetaminophen (Tylenol Tab) 650 mg Q6H PRN PO PAIN LEVEL 1-3 OR FEVER Last administered on 02/25/16 08:41; Admin Dose 650 MG; Start 02/24/16 at 07:00 Morphine Sulfate (morphine) 2 mg Q4H PRN IV PAIN LEVEL 7-10 Last administered on 03/04/16 15:58; Admin Dose 2 MG; Start 02/24/16 at 07:00 Escitalopram Oxalate (Lexapro) 10 mg DAILY PO Last administered on 03/03/16 09 :09; Admin Dose 10 MG; Start 02/24/16 at 09:00 Magnesium Hydroxide (Milk Of Mag) 30 ml DAILY PRN PO CONSTIPATION; Start at 07:00 Multivitamins Therapeutic (Theragran) 1 tab DAILY PO Last administered on 09:09; Admin Dose 1 TAB; Start 02/24/16 at 09:00 Polyethylene Glycol (Miralax) 17 gm QHS PO Last administered on 03/02/16 20:51 ; Admin Dose 17 GM; Start 02/24/16 at 21:00 Risperidone (Risperdal) 0.5 mg BID PO Last administered on 03/03/16 09:09; Admin Dose 0.5 MG; Start 02/24/16 at 09:00 Hydromorphone HCl (Dilaudid) 0.5 mg Q6H PRN IV pain Last administered on 22:46; Admin Dose 0.5 MG; Start 02/24/16 at 16:00 Acetaminophen/ Hydrocodone Bitart ([place] (5/325)) 1 tab Q4H PRN GTB pain Last administered on 02/29/16 20:07; Admin Dose 1 TAB; Start 02/25/16 at 12:00 Zinc Sulfate (Zinc Sulfate) 220 mg DAILY GTB Last administered on 03/03/16 09: 09; Admin Dose 220 MG; Start 02/26/16 at 09:00 IV Flush (NS 10 ml) 10 ml PRN PRN IV IV PROTOCOL; Start 02/25/16 at 15:30 Mupirocin (Bactroban) 1 applic BID TOP Last administered on 03/04/16 09:09; Admin Dose 1 APPLIC; Start 02/26/16 at 18:30 Dextrose (D50w Syringe) 50 ml PRN PRN IV DECREASED GLUCOSE Last administered on 02/27/16 07:21; Admin Dose 50 ML; Start 02/27/16 at 07:00 Glycopyrrolate (Robinul) 1 mg TID GTB Last administered on 03/03/16 12:34; Admin Dose 1 MG; Start 02/27/16 at 13:00 Pantoprazole 40 mg 40 mg DAILY@06 IV Last administered on 03/04/16 06:34; Admin Dose 40 MG; Start 02/28/16 at 06:00 Phenylephrine HCl 40 mg/Dextrose 500 ml @ 75 mls/hr TITRATE IV Last administered on 03/01/16 16:42; Admin Dose 7.5 MLS/HR; Start 02/27/16 at 16:00 Meropenem/Sodium Chloride (Merrem/NS) 100 ml @ 200 mls/hr Q12 IVPB Last administered on 03/04/16 09:09; Admin Dose 200 MLS/HR; Start 02/27/16 at 21:00 Silver Nitrate (Silver Nitrate Swabs) 1 stick BID TOP Last administered on 03/04 14:08; Admin Dose 1 STICK; Start 03/01/16 at 10:30 Collagenase 1 applic 1 applic DAILY TOP Last administered on 03/04/16 09:09; Admin Dose 1 APPLIC; Start 03/03/16 at 09:00 Sodium Chloride (1/2 NS) 1,000 ml @ 50 mls/hr Q20H IV Last administered on 11:13; Admin Dose 50 MLS/HR; Start 03/03/16 at 14:30 YIN RUSH MD Mar 04, 2016 16:20
--- NOTE | 2016-03-04 18:14 | RADRPT ---
PROCEDURE: Video-fluoroscopy swallowing study. CLINICAL INDICATION: Dysphagia. TECHNIQUE: Fluoroscopic guided video swallowing study was done in conjunction with the speech ther apist. The study was confined to the oral, pharyngeal, and cervical phases of the swallowing mechani sm. 2.4 minutes of fluoroscopy time was used. COMPARISON: No prior study is available for comparison. FINDINGS: There is penetration with nectar-thick liquids by straw and thin liquids by straw. There is no aspi ration during swallow. IMPRESSION: 1. Penetration without aspiration. 2. Please refer to the speech therapist's recommendations for future feedings. RPTAT: QQ .Cain Castellanos MD, MD Date Time Electronically viewed and signed by .Cain Castellanos MD, on 03/04/2016 18:13 .R/
[2016-03-04] MEDS: HYDROmorphONE 1 MG/ML SYG IV PRN (19:47)
[2016-03-04] MEDS: POLYETHYLENE GLYCOL 17 GM PACKET PO SCH (21:10)
[2016-03-05] VITALS (22 sets, daily range): BP systolic 113–134; BP diastolic 63–76; PULSE 59–100; RESP 16–23
[2016-03-05] MEDS: morphine 2 MG INJ IV PRN ×3 (00:23→20:08)
[2016-03-05] MEDS: PANTOPRAZOLE 40 MG INJ IV SCH (06:46)
[2016-03-05] MEDS: SOD CHLORIDE 0.45% 1,000 ML IV SCH ×2 (06:46→20:37)
--- NOTE | 2016-03-05 08:20 | PN ---
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 Reportedly, he began to desaturate while he was at the jail facility. He was suctioned and he was being bagged through his trach on arrival to the ER. Initial vital signs show blood pressure of 75/49, heart rate 113, respiratory rate 14, oxygen saturation 100% on 50% FIO2. Temperature was 99.3. Laboratory result was notable for a WBC of 14,000, hemoglobin 10.1, which is stable. Sodium 134, BUN 104 and creatinine 2.97 from 1.7 about 9 months ago. The patient received weight-based IV fluids and was started on vancomycin and cefepime. His urinalysis shows a severe UTI. Chest x-ray showed mild vascular congestion with no focal consolidation or pleural effusion. Of note, the patient was last admitted here in April of last year for sepsis secondary to pneumonia and a UTI. At that time, the patient was discharged to [place] with the intent to wean off the vent . The patient overnight in the ICU had bradycardia with heart block and as such, I was akded to see the patient in cardiac consultation but bp remains stable and off pressors at this time Problems: Assessment/Plan 1. Septic shock. 2. Urosepsis. 3. Chronic ventilator-dependent respiratory failure. 4. Chronic anemia. 5. Chronic kidney disease with acute kidney injury, gradually improving. 6. Status post spinal cord injury with paraplegia. 7. Status post tracheostomy. 8. Status post gastrostomy 9. Sinus wenkeback with juntional escape rhytm 10.S/P hypotension. RECOMMENDATIONS: 1. Continue long-term ventilator support. 2. Continue antibiotics as per infectious disease datapower consultant. 3. Continue hydration. 4. Continue G-tube feedings. 5. Continue DVT prophylaxis and GI prophylaxis. 6. Avoid AV blockers due to juntional escape rhtyhm and wenkeback - no therpay necessary 7. Off pressors and EF is normal Subjective 24 Hr Interval Summary Free Text/Dictation The patient now stable on the floor Exam/Review of Systems Vital Signs Vitals Vital Signs Date Time Temp Pulse Resp B/P Pulse Ox O2 Delivery O2 Flow Rate FiO2 03/05/16 07:45 98.0 78 18 121/71 96 03/05/16 04:53 40 03/04/16 20:00 Mechanical Ventilator Intake and Output 03/04/16 03/04/16 03/05/16 15:00 23:00 07:00 Intake Total 500 ml 650 ml 600 ml Output Total 800 ml 300 ml 400 ml Balance -300 ml 350 ml 200 ml Results Result Diagram: 03/04/16 1143 03/04/16 0400 Results 24 hrs Laboratory Tests Test 03/04/16 09:14 03/04/16 11:43 Bedside Glucose 71 Hematocrit 26.9 #L Hemoglobin 9.0 #L Medications Medications Current Medications Ondansetron HCl (Zofran Inj) 4 mg Q6H PRN IV NAUSEA AND/OR VOMITING Last administered on 02/27/16 12:46; Admin Dose 4 MG; Start 02/24/16 at 07:00 Acetaminophen (Tylenol Tab) 650 mg Q6H PRN PO PAIN LEVEL 1-3 OR FEVER Last administered on 02/25/16 08:41; Admin Dose 650 MG; Start 02/24/16 at 07:00 Morphine Sulfate (morphine) 2 mg Q4H PRN IV PAIN LEVEL 7-10 Last administered on 03/05/16 00:23; Admin Dose 2 MG; Start 02/24/16 at 07:00 Escitalopram Oxalate (Lexapro) 10 mg DAILY PO Last administered on 03/03/16 09 :09; Admin Dose 10 MG; Start 02/24/16 at 09:00 Magnesium Hydroxide (Milk Of Mag) 30 ml DAILY PRN PO CONSTIPATION; Start at 07:00 Multivitamins Therapeutic (Theragran) 1 tab DAILY PO Last administered on 09:09; Admin Dose 1 TAB; Start 02/24/16 at 09:00 Polyethylene Glycol (Miralax) 17 gm QHS PO Last administered on 03/04/16 21:10 ; Admin Dose 17 GM; Start 02/24/16 at 21:00 Risperidone (Risperdal) 0.5 mg BID PO Last administered on 03/04/16 21:10; Admin Dose 0.5 MG; Start 02/24/16 at 09:00 Hydromorphone HCl (Dilaudid) 0.5 mg Q6H PRN IV pain Last administered on 19:47; Admin Dose 0.5 MG; Start 02/24/16 at 16:00 Acetaminophen/ Hydrocodone Bitart ([place] (5/325)) 1 tab Q4H PRN GTB pain Last administered on 02/29/16 20:07; Admin Dose 1 TAB; Start 02/25/16 at 12:00 Zinc Sulfate (Zinc Sulfate) 220 mg DAILY GTB Last administered on 03/03/16 09: 09; Admin Dose 220 MG; Start 02/26/16 at 09:00 IV Flush (NS 10 ml) 10 ml PRN PRN IV IV PROTOCOL; Start 02/25/16 at 15:30 Mupirocin (Bactroban) 1 applic BID TOP Last administered on 03/04/16 21:09; Admin Dose 1 APPLIC; Start 02/26/16 at 18:30 Dextrose (D50w Syringe) 50 ml PRN PRN IV DECREASED GLUCOSE Last administered on 02/27/16 07:21; Admin Dose 50 ML; Start 02/27/16 at 07:00 Glycopyrrolate (Robinul) 1 mg TID GTB Last administered on 03/04/16 21:12; Admin Dose 1 MG; Start 02/27/16 at 13:00 Pantoprazole 40 mg 40 mg DAILY@06 IV Last administered on 03/05/16 06:46; Admin Dose 40 MG; Start 02/28/16 at 06:00 Phenylephrine HCl 40 mg/Dextrose 500 ml @ 75 mls/hr TITRATE IV Last administered on 03/01/16 16:42; Admin Dose 7.5 MLS/HR; Start 02/27/16 at 16:00 Meropenem/Sodium Chloride (Merrem/NS) 100 ml @ 200 mls/hr Q12 IVPB Last administered on 03/04/16 21:09; Admin Dose 200 MLS/HR; Start 02/27/16 at 21:00 Silver Nitrate (Silver Nitrate Swabs) 1 stick BID TOP Last administered on 03/04 14:08; Admin Dose 1 STICK; Start 03/01/16 at 10:30 Collagenase 1 applic 1 applic DAILY TOP Last administered on 03/04/16 09:09; Admin Dose 1 APPLIC; Start 03/03/16 at 09:00 Sodium Chloride (1/2 NS) 1,000 ml @ 50 mls/hr Q20H IV Last administered on 06:46; Admin Dose 50 MLS/HR; Start 03/03/16 at 14:30 YIN RUSH MD Mar 05, 2016 08:20
[2016-03-05] MEDS: COLLAGENASE 30 GM TUBE TOP SCH ×3 (09:00→15:02)
[2016-03-05] MEDS: MULTIVITAMINS THERAPEUTIC TAB PO SCH (09:13)
[2016-03-05] MEDS: RISPERIDONE 0.25 MG TAB PO SCH ×2 (09:13→20:07)
[2016-03-05] MEDS: ESCITALOPRAM 10 MG TAB PO SCH (09:13)
[2016-03-05] MEDS: ZINC SULFATE 220 MG CAP GTB SCH (09:13)
[2016-03-05] MEDS: HYDROmorphONE 1 MG/ML SYG IV PRN ×3 (09:16→22:31)
[2016-03-05 09:20] LABS: BASOPHILS % 0.4 % (0.0-2.0); EOSINOPHILS # 0.1 10^3/ul (0.0-0.5); EOSINOPHILS % 0.9 % (0.0-7.0); HEMATOCRIT 26.7 % (42.0-52.0); HEMOGLOBIN 9.1 g/dl (14.0-18.0); LYMPHOCYTES # 0.6 10^3/ul (0.8-2.9); LYMPHOCYTES % 9.3 % (15.0-51.0); MEAN CORPUSCULAR HEMOGLOBIN 30.1 pg (29.0-33.0); MEAN CORPUSCULAR HGB CONC 33.9 g/dl (32.0-37.0); MEAN CORPUSCULAR VOLUME 88.6 fl (82.0-101.0); MEAN PLATELET VOLUME 9.1 fl (7.4-10.4); MONOCYTE # 0.5 10^3/ul (0.3-0.9); MONOCYTES % 7.6 % (0.0-11.0); NEUTROPHIL # 5.4 10^3/ul (1.6-7.5); NEUTROPHILS % 81.8 % (39.0-77.0); PLATELET COUNT 205 10^3/UL (140-440); RED BLOOD COUNT 3.01 10^6/ul (4.70-6.10); RED CELL DISTRIBUTION WIDTH 13.4 % (11.5-14.5); UNCORRECTED WBC 6.6 10^3/ul (4.8-10.8); WHITE BLOOD COUNT 6.6 10^3/ul (4.8-10.8)
[2016-03-05 09:25] LABS: CONDITION 1
[2016-03-05] MEDS: MEROPENEM 500 MG in SOD CHLORIDE 0.9% 100 ML IVPB SCH ×2 (09:25→20:36)
[2016-03-05 09:26] LABS: POTASSIUM 5.1 mmol/L (3.5-5.1)
[2016-03-05 09:28] LABS: CREATININE 1.66 mg/dl (0.61-1.24)
[2016-03-05 09:29] LABS: CALCIUM 8.4 mg/dl (8.4-10.2)
--- NOTE | 2016-03-05 09:34 | CONS ---
Date/Time of Note Date/Time of Note DATE: 03/05/16 TIME: 09:34 Assessment/Plan Assessment/Plan Chief Complaint/Hosp Course IMPRESSION: The patient has: 1. Acute kidney injury.better 2. Sepsis. 3. Underlying prerenal azotemia. 4. Underlying acute tubular necrosis due to sepsis. 5. Anion gap metabolic acidosis. 6. Hyponatremia. 7. Leukocytosis. 8. Anemia. 9. Urinary tract infection. 10. peg 11. Paraplegia. 12. Respiratory failure and tracheostomy. 13 hyperkalemia plan iv fluid ck labs renal stable Problems: Consultation Date/Type/Reason Admit Date/Time Feb 24, 2016 at 05:06 Type of Consultation: renal Referring Provider: JOSÉ ANTONIO MIRZA MD 24 HR Interval Summary Constitutional: improved Exam/Review of Systems Vital Signs Vitals Vital Signs Date Time Temp Pulse Resp B/P Pulse Ox O2 Delivery O2 Flow Rate FiO2 03/05/16 08:57 59 03/05/16 07:45 98.0 18 121/71 96 03/05/16 04:53 40 03/04/16 20:00 Mechanical Ventilator Intake and Output 03/04/16 03/04/16 03/05/16 15:00 23:00 07:00 Intake Total 500 ml 650 ml 600 ml Output Total 800 ml 300 ml 400 ml Balance -300 ml 350 ml 200 ml Exam Neck: supple Respiratory: clear to auscultation Cardiovascular: regular rate and rhythm Gastrointestinal: soft Results Result Diagram: 03/05/16 0910 03/04/16 0400 Results 24 hrs Laboratory Tests Test 03/04/16 11:43 03/05/16 09:10 Hematocrit 26.9 #L 26.7 L Hemoglobin 9.0 #L 9.1 L Basophils # 0.0 Basophils % 0.4 Eosinophils # 0.1 Eosinophils % 0.9 Lymphocytes # 0.6 L Lymphocytes % 9.3 L Mean Corpuscular Hemoglobin 30.1 Mean Corpuscular Hemoglobin Concent 33.9 Mean Corpuscular Volume 88.6 Mean Platelet Volume 9.1 Monocytes # 0.5 Monocytes % 7.6 Neutrophils # 5.4 Neutrophils % 81.8 H Nucleated Red Blood Cells # 0.0 Nucleated Red Blood Cells % 0.0 Platelet Count 205 # Red Blood Count 3.01 #L Red Cell Distribution Width 13.4 White Blood Count 6.6 # Medications Medications Current Medications Ondansetron HCl (Zofran Inj) 4 mg Q6H PRN IV NAUSEA AND/OR VOMITING Last administered on 02/27/16 12:46; Admin Dose 4 MG; Start 02/24/16 at 07:00 Acetaminophen (Tylenol Tab) 650 mg Q6H PRN PO PAIN LEVEL 1-3 OR FEVER Last administered on 02/25/16 08:41; Admin Dose 650 MG; Start 02/24/16 at 07:00 Morphine Sulfate (morphine) 2 mg Q4H PRN IV PAIN LEVEL 7-10 Last administered on 03/05/16 00:23; Admin Dose 2 MG; Start 02/24/16 at 07:00 Escitalopram Oxalate (Lexapro) 10 mg DAILY PO Last administered on 03/05/16 09 :13; Admin Dose 10 MG; Start 02/24/16 at 09:00 Magnesium Hydroxide (Milk Of Mag) 30 ml DAILY PRN PO CONSTIPATION; Start at 07:00 Multivitamins Therapeutic (Theragran) 1 tab DAILY PO Last administered on 09:13; Admin Dose 1 TAB; Start 02/24/16 at 09:00 Polyethylene Glycol (Miralax) 17 gm QHS PO Last administered on 03/04/16 21:10 ; Admin Dose 17 GM; Start 02/24/16 at 21:00 Risperidone (Risperdal) 0.5 mg BID PO Last administered on 03/05/16 09:13; Admin Dose 0.5 MG; Start 02/24/16 at 09:00 Hydromorphone HCl (Dilaudid) 0.5 mg Q6H PRN IV pain Last administered on 09:16; Admin Dose 0.5 MG; Start 02/24/16 at 16:00 Acetaminophen/ Hydrocodone Bitart ([place] (5/325)) 1 tab Q4H PRN GTB pain Last administered on 02/29/16 20:07; Admin Dose 1 TAB; Start 02/25/16 at 12:00 Zinc Sulfate (Zinc Sulfate) 220 mg DAILY GTB Last administered on 03/05/16 09: 13; Admin Dose 220 MG; Start 02/26/16 at 09:00 IV Flush (NS 10 ml) 10 ml PRN PRN IV IV PROTOCOL; Start 02/25/16 at 15:30 Mupirocin (Bactroban) 1 applic BID TOP Last administered on 03/04/16 21:09; Admin Dose 1 APPLIC; Start 02/26/16 at 18:30 Dextrose (D50w Syringe) 50 ml PRN PRN IV DECREASED GLUCOSE Last administered on 02/27/16 07:21; Admin Dose 50 ML; Start 02/27/16 at 07:00 Glycopyrrolate (Robinul) 1 mg TID GTB Last administered on 03/04/16 21:12; Admin Dose 1 MG; Start 02/27/16 at 13:00 Pantoprazole 40 mg 40 mg DAILY@06 IV Last administered on 03/05/16 06:46; Admin Dose 40 MG; Start 02/28/16 at 06:00 Phenylephrine HCl 40 mg/Dextrose 500 ml @ 75 mls/hr TITRATE IV Last administered on 03/01/16 16:42; Admin Dose 7.5 MLS/HR; Start 02/27/16 at 16:00 Meropenem/Sodium Chloride (Merrem/NS) 100 ml @ 200 mls/hr Q12 IVPB Last administered on 03/05/16 09:25; Admin Dose 200 MLS/HR; Start 02/27/16 at 21:00 Silver Nitrate (Silver Nitrate Swabs) 1 stick BID TOP Last administered on 03/04 14:08; Admin Dose 1 STICK; Start 03/01/16 at 10:30 Collagenase 1 applic 1 applic DAILY TOP Last administered on 03/04/16 09:09; Admin Dose 1 APPLIC; Start 03/03/16 at 09:00 Sodium Chloride (1/2 NS) 1,000 ml @ 50 mls/hr Q20H IV Last administered on 06:46; Admin Dose 50 MLS/HR; Start 03/03/16 at 14:30 BRIANDA HIRSCH MD Mar 05, 2016 09:34
--- NOTE | 2016-03-05 10:02 | CONS ---
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 Status post septic shock. 2. Urinary tract infection as per urinalysis, so far 3 urine cultures were consistent with contaminated suprapubic catheter * The patient has new suprapubic catheter. 3. Chronic respiratory failure. 4. PSAR GT site cellulitis 5. Staph CoNS bacteremia on admission 02/07 bottles = consistent with skin contaminated sample (+)MRSA Nares ->Bactroban INVASIVES: Trach/PEG/Suprapubic cath ABX ALLERGY: KNDA CURRENT ABX: TOTAL ABX DAY #11 => Merrem #8 s/p Vanco IV + Cefepime ID RECOMMENDATIONS: 1. Continue Merrem 2. f/u on final micro still pending: * Repeat urine (-)24H preliminary * GT site growing (+PSAR=MDRO, yeast preliminary * * . Problems: Consultation Date/Type/Reason Admit Date/Time Feb 24, 2016 at 05:06 Initial Consult Date Type of Consultation: ID Referring Provider: JOSÉ ANTONIO MIRZA MD Exam/Review of Systems Vital Signs Vitals Vital Signs Date Time Temp Pulse Resp B/P Pulse Ox O2 Delivery O2 Flow Rate FiO2 03/05/16 09:30 108 20 98 40 03/05/16 07:45 98.0 121/71 03/04/16 20:00 Mechanical Ventilator Intake and Output 03/04/16 03/04/16 03/05/16 15:00 23:00 07:00 Intake Total 500 ml 650 ml 600 ml Output Total 800 ml 300 ml 400 ml Balance -300 ml 350 ml 200 ml Results Result Diagram: 03/05/16 0910 03/05/16 0910 Results 24 hrs Laboratory Tests Test 03/04/16 11:43 03/05/16 09:10 Hematocrit 26.9 #L 26.7 L Hemoglobin 9.0 #L 9.1 L Anion Gap 16 Basophils # 0.0 Basophils % 0.4 Blood Urea Nitrogen 26 H Calcium Level 8.4 Carbon Dioxide Level 22 Chloride Level 110 Creatinine 1.66 H Eosinophils # 0.1 Eosinophils % 0.9 Glucose Level 82 Lymphocytes # 0.6 L Lymphocytes % 9.3 L Mean Corpuscular Hemoglobin 30.1 Mean Corpuscular Hemoglobin Concent 33.9 Mean Corpuscular Volume 88.6 Mean Platelet Volume 9.1 Monocytes # 0.5 Monocytes % 7.6 Neutrophils # 5.4 Neutrophils % 81.8 H Nucleated Red Blood Cells # 0.0 Nucleated Red Blood Cells % 0.0 Platelet Count 205 # Potassium Level 5.1 Red Blood Count 3.01 #L Red Cell Distribution Width 13.4 Sodium Level 143 White Blood Count 6.6 # Medications Medications Current Medications Ondansetron HCl (Zofran Inj) 4 mg Q6H PRN IV NAUSEA AND/OR VOMITING Last administered on 02/27/16 12:46; Admin Dose 4 MG; Start 02/24/16 at 07:00 Acetaminophen (Tylenol Tab) 650 mg Q6H PRN PO PAIN LEVEL 1-3 OR FEVER Last administered on 02/25/16 08:41; Admin Dose 650 MG; Start 02/24/16 at 07:00 Morphine Sulfate (morphine) 2 mg Q4H PRN IV PAIN LEVEL 7-10 Last administered on 03/05/16 00:23; Admin Dose 2 MG; Start 02/24/16 at 07:00 Escitalopram Oxalate (Lexapro) 10 mg DAILY PO Last administered on 03/05/16 09 :13; Admin Dose 10 MG; Start 02/24/16 at 09:00 Magnesium Hydroxide (Milk Of Mag) 30 ml DAILY PRN PO CONSTIPATION; Start at 07:00 Multivitamins Therapeutic (Theragran) 1 tab DAILY PO Last administered on 09:13; Admin Dose 1 TAB; Start 02/24/16 at 09:00 Polyethylene Glycol (Miralax) 17 gm QHS PO Last administered on 03/04/16 21:10 ; Admin Dose 17 GM; Start 02/24/16 at 21:00 Risperidone (Risperdal) 0.5 mg BID PO Last administered on 03/05/16 09:13; Admin Dose 0.5 MG; Start 02/24/16 at 09:00 Hydromorphone HCl (Dilaudid) 0.5 mg Q6H PRN IV pain Last administered on 09:16; Admin Dose 0.5 MG; Start 02/24/16 at 16:00 Acetaminophen/ Hydrocodone Bitart ([place] (5/325)) 1 tab Q4H PRN GTB pain Last administered on 02/29/16 20:07; Admin Dose 1 TAB; Start 02/25/16 at 12:00 Zinc Sulfate (Zinc Sulfate) 220 mg DAILY GTB Last administered on 03/05/16 09: 13; Admin Dose 220 MG; Start 02/26/16 at 09:00 IV Flush (NS 10 ml) 10 ml PRN PRN IV IV PROTOCOL; Start 02/25/16 at 15:30 Mupirocin (Bactroban) 1 applic BID TOP Last administered on 03/04/16 21:09; Admin Dose 1 APPLIC; Start 02/26/16 at 18:30 Dextrose (D50w Syringe) 50 ml PRN PRN IV DECREASED GLUCOSE Last administered on 02/27/16 07:21; Admin Dose 50 ML; Start 02/27/16 at 07:00 Glycopyrrolate (Robinul) 1 mg TID GTB Last administered on 03/04/16 21:12; Admin Dose 1 MG; Start 02/27/16 at 13:00 Pantoprazole 40 mg 40 mg DAILY@06 IV Last administered on 03/05/16 06:46; Admin Dose 40 MG; Start 02/28/16 at 06:00 Phenylephrine HCl 40 mg/Dextrose 500 ml @ 75 mls/hr TITRATE IV Last administered on 03/01/16 16:42; Admin Dose 7.5 MLS/HR; Start 02/27/16 at 16:00 Meropenem/Sodium Chloride (Merrem/NS) 100 ml @ 200 mls/hr Q12 IVPB Last administered on 03/05/16 09:25; Admin Dose 200 MLS/HR; Start 02/27/16 at 21:00 Silver Nitrate (Silver Nitrate Swabs) 1 stick BID TOP Last administered on 03/04 14:08; Admin Dose 1 STICK; Start 03/01/16 at 10:30 Collagenase 1 applic 1 applic DAILY TOP Last administered on 03/04/16 09:09; Admin Dose 1 APPLIC; Start 03/03/16 at 09:00 Sodium Chloride (1/2 NS) 1,000 ml @ 50 mls/hr Q20H IV Last administered on 06:46; Admin Dose 50 MLS/HR; Start 03/03/16 at 14:30 KELSI CERDA NP Mar 05, 2016 10:02
--- NOTE | 2016-03-05 11:08 | GILP ---
DATE OF PROCEDURE: PROCEDURE: Change of G-tube. PREOPERATIVE DIAGNOSIS: The patient has a malfunctioning G-tube and hence, the G-tube needs to be c hanged. SURGEON: Yvan Krause MD DESCRIPTION OF PROCEDURE: The existing G-tube was removed by removing the fluid in the retention ba lloon. By using the same opening, a #20 replacement G-tube was inserted and 8 mL of fluid was insti lled into the balloon for retention of the G-tube. By aspirating the gastric contents, it was confi rmed the G-tube is in the right place. Procedure was terminated. PLAN: Recommend to start using the G-tube for feeding. Dictated By: YVAN DELAROSA/QUE Conf#: [id number] DID#: [id number]
[2016-03-05] MEDS: MUPIROCIN 2% 22 GM OINT TOP SCH ×2 (11:29→20:07)
[2016-03-05] MEDS: GLYCOPYRROLATE 1 MG TAB GTB SCH ×3 (11:29→20:07)
[2016-03-05] MEDS: SILVER NITRATE SWAB TOP SCH ×2 (11:30→20:07)
--- NOTE | 2016-03-05 14:15 | PN ---
Date/Time of Note Date/Time of Note DATE: 03/05/16 TIME: 14:10 Assessment/Plan VTE Prophylaxis VTE Prophylaxis Intervention: SCD's Lines/Catheters IV Catheter Type (from [facility]): PICC Line Assessment/Plan Assessment/Plan - Severe sepsis with shock, most likely, secondary to urinary tract infection. Dr. Maciel is following patient in infectious disease consultation. Continue antibiotics per ID. Patient is currently on Meropenem, Vancomycin, Diflucan. Continue IV fluids ICU care. - Urinary tract infection per urinalysis. - Neurogenic bladder with suprapubic catheter. Status post suprapubic catheter change by Dr. Marquez, urology. - Chronic ventilator dependent respiratory failure. Dr. Ames is following patient in a pulmonology consultation. Continue ventilator support broncho dilators. - Dysphagia with a G-tube. Continue current tube feeding. Aspiration precautions. - Acute renal failure. The patient is followed by Dr. Wright in nephrology consultation. Continue IV fluids. Monitor BUN and creatinine. 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 - Sacral decubitus stage III. Continue offloading, continue current wound care. - Hyperkalemia - per Nephrology - Malfunctioning GT - GT changed by DR krause - resume feeding as ok with dr Krause. Continue sequential compression device for deep venous thrombosis prophylaxis and Protonix for peptic ulcer disease prophylaxis. Further recommendations based on clinical course. Plan of care discussed with Dr. Barreto. Subjective 24 Hr Interval Summary Constitutional: requiring O2 Eyes: pain ENT: no complaints Respiratory: no complaints Cardiovascular: no complaints Genitourinary: no complaints Musculoskeletal: no complaints Skin: no complaints Neurologic: no complaints Exam/Review of Systems Vital Signs Vitals Vital Signs Date Time Temp Pulse Resp B/P Pulse Ox O2 Delivery O2 Flow Rate FiO2 03/05/16 12:42 90 03/05/16 12:35 98.2 18 124/64 98 03/05/16 11:15 40 03/04/16 20:00 Mechanical Ventilator Intake and Output 03/04/16 03/04/16 03/05/16 15:00 23:00 07:00 Intake Total 500 ml 650 ml 600 ml Output Total 800 ml 300 ml 400 ml Balance -300 ml 350 ml 200 ml Exam Constitutional: alert, well developed Psych: nl mood/affect Eyes: EOMI, PERRL, nl sclera ENMT: nl external ears & nose Neck: non-tender Respiratory: clear to auscultation Cardiovascular: nl pulses Gastrointestinal: non-tender, soft Musculoskeletal: muscle weakness Extremities: normal pulses Neurological: nl mental status Skin: other Lymph: nontender Results Result Diagram: 03/05/1610 03/05/16 0910 Results 24 hrs Laboratory Tests Test 03/05/16 09:10 Anion Gap 16 Basophils # 0.0 Basophils % 0.4 Blood Urea Nitrogen 26 H Calcium Level 8.4 Carbon Dioxide Level 22 Chloride Level 110 Creatinine 1.66 H Eosinophils # 0.1 Eosinophils % 0.9 Glucose Level 82 Hematocrit 26.7 L Hemoglobin 9.1 L Lymphocytes # 0.6 L Lymphocytes % 9.3 L Mean Corpuscular Hemoglobin 30.1 Mean Corpuscular Hemoglobin Concent 33.9 Mean Corpuscular Volume 88.6 Mean Platelet Volume 9.1 Monocytes # 0.5 Monocytes % 7.6 Neutrophils # 5.4 Neutrophils % 81.8 H Nucleated Red Blood Cells # 0.0 Nucleated Red Blood Cells % 0.0 Platelet Count 205 # Potassium Level 5.1 Red Blood Count 3.01 #L Red Cell Distribution Width 13.4 Sodium Level 143 White Blood Count 6.6 # Medications Medications Current Medications Ondansetron HCl (Zofran Inj) 4 mg Q6H PRN IV NAUSEA AND/OR VOMITING Last administered on 02/27/16 12:46; Admin Dose 4 MG; Start 02/24/16 at 07:00 Acetaminophen (Tylenol Tab) 650 mg Q6H PRN PO PAIN LEVEL 1-3 OR FEVER Last administered on 02/25/16 08:41; Admin Dose 650 MG; Start 02/24/16 at 07:00 Morphine Sulfate (morphine) 2 mg Q4H PRN IV PAIN LEVEL 7-10 Last administered on 03/05/16 13:02; Admin Dose 2 MG; Start 02/24/16 at 07:00 Escitalopram Oxalate (Lexapro) 10 mg DAILY PO Last administered on 03/05/16 09 :13; Admin Dose 10 MG; Start 02/24/16 at 09:00 Magnesium Hydroxide (Milk Of Mag) 30 ml DAILY PRN PO CONSTIPATION; Start at 07:00 Multivitamins Therapeutic (Theragran) 1 tab DAILY PO Last administered on 09:13; Admin Dose 1 TAB; Start 02/24/16 at 09:00 Polyethylene Glycol (Miralax) 17 gm QHS PO Last administered on 03/04/16 21:10 ; Admin Dose 17 GM; Start 02/24/16 at 21:00 Risperidone (Risperdal) 0.5 mg BID PO Last administered on 03/05/16 09:13; Admin Dose 0.5 MG; Start 02/24/16 at 09:00 Hydromorphone HCl (Dilaudid) 0.5 mg Q6H PRN IV pain Last administered on 09:16; Admin Dose 0.5 MG; Start 02/24/16 at 16:00 Acetaminophen/ Hydrocodone Bitart ([place] (5/325)) 1 tab Q4H PRN GTB pain Last administered on 02/29/16 20:07; Admin Dose 1 TAB; Start 02/25/16 at 12:00 Zinc Sulfate (Zinc Sulfate) 220 mg DAILY GTB Last administered on 03/05/16 09: 13; Admin Dose 220 MG; Start 02/26/16 at 09:00 IV Flush (NS 10 ml) 10 ml PRN PRN IV IV PROTOCOL; Start 02/25/16 at 15:30 Mupirocin (Bactroban) 1 applic BID TOP Last administered on 03/05/16 11:29; Admin Dose 1 APPLIC; Start 02/26/16 at 18:30 Dextrose (D50w Syringe) 50 ml PRN PRN IV DECREASED GLUCOSE Last administered on 02/27/16 07:21; Admin Dose 50 ML; Start 02/27/16 at 07:00 Glycopyrrolate (Robinul) 1 mg TID GTB Last administered on 03/05/16 11:29; Admin Dose 1 MG; Start 02/27/16 at 13:00 Pantoprazole 40 mg 40 mg DAILY@06 IV Last administered on 03/05/16 06:46; Admin Dose 40 MG; Start 02/28/16 at 06:00 Phenylephrine HCl 40 mg/Dextrose 500 ml @ 75 mls/hr TITRATE IV Last administered on 03/01/16 16:42; Admin Dose 7.5 MLS/HR; Start 02/27/16 at 16:00 Meropenem/Sodium Chloride (Merrem/NS) 100 ml @ 200 mls/hr Q12 IVPB Last administered on 03/05/16 09:25; Admin Dose 200 MLS/HR; Start 02/27/16 at 21:00 Silver Nitrate (Silver Nitrate Swabs) 1 stick BID TOP Last administered on 03/05 11:30; Admin Dose 1 STICK; Start 03/01/16 at 10:30 Collagenase 1 applic 1 applic DAILY TOP Last administered on 03/04/16 09:09; Admin Dose 1 APPLIC; Start 03/03/16 at 09:00 Sodium Chloride (1/2 NS) 1,000 ml @ 50 mls/hr Q20H IV Last administered on 06:46; Admin Dose 50 MLS/HR; Start 03/03/16 at 14:30 NAE VELAZCO Mar 05, 2016 14:15
--- NOTE | 2016-03-05 17:05 | PN ---
DATE: 03/05/2016 The patient's general condition is the same. He was transferred out of ICU, now on the medical floo r. He is on long-term ventilator support through tracheostomy. His breathing appears unlabored. Dayna fuentes is awake, alert, trying to talk through the tracheostomy. His vital signs are stable. PHYSICAL EXAMINATION: VITAL SIGNS: Temperature is 98.2, blood pressure 124/64, pulse rate is 78, respirations 18, pulse o ximetry 98% saturation. HEENT: Thickened secretions are clear. No bleeding is seen. HEART: Regular rhythm. CHEST: Breath sounds are bilaterally, diminished in both the lower lung tierney with a few intermitt ent rales and rhonchi. ABDOMEN: Soft, nontender. He is able to eat orally. Normal bowel sounds. EXTREMITIES: Show no edema. He is paraplegic. LABORATORY DATA: Lab results from today shows sodium 143, potassium 5.1, bicarbonate of 22, creatin ine 1.66; slightly higher, BUN 26, calcium 8.4. The BUN and creatinine may not show any further imp rovement due to his underlying chronic kidney disease. It may fluctuate slightly. CBC shows a WBC 6600, hemoglobin 9.1, hematocrit 26.7, platelets within normal limits. ASSESSMENT AND PLAN: 1. Urosepsis. 2. Chronic respiratory failure, ventilator dependent. 3. Chronic anemia. 4. Chronic kidney disease with acute kidney injury, improving. 5. Status post paraplegia secondary to spinal cord injury several years ago. 6. Status post catheterization. 7. Status post gastrostomy. MEDICATIONS 1. Continue long-term enteral support. 2. Continue antibiotics as prescribed by infectious diseases supply chain consultant. 3. Continue deep vein thrombosis prophylaxis and gastrointestinal prophylaxis. Discussed with Dr. Barreto, his primary physician, and also Medardo, nurse practitioner, about disch arge planning. The patient is a long-term resident in a care center, and he can be discharged to that facility when his condition ultimately is stable per all his physicians in charge. Dictated By: HUMBERTO PEREZ MD SR/NTS Conf#: [id number] DID#: [id number]
[2016-03-05] MEDS: ZOLPIDEM 5 MG TAB PO PRN (20:07)
[2016-03-05] MEDS: POLYETHYLENE GLYCOL 17 GM PACKET PO SCH (20:08)
[2016-03-06] VITALS (23 sets, daily range): BP systolic 108–133; BP diastolic 59–87; PULSE 75–95; RESP 15–27
[2016-03-06] MEDS: PANTOPRAZOLE 40 MG INJ IV SCH (05:24)
[2016-03-06 06:42] LABS: POTASSIUM 5.3 mmol/L (3.5-5.1)
[2016-03-06 06:45] LABS: CREATININE 1.81 mg/dl (0.61-1.24)
[2016-03-06 06:46] LABS: CALCIUM 8.2 mg/dl (8.4-10.2)
[2016-03-06 06:59] LABS: BASOPHILS % 0.1 % (0.0-2.0); EOSINOPHILS # 0.1 10^3/ul (0.0-0.5); EOSINOPHILS % 1.1 % (0.0-7.0); HEMATOCRIT 25.7 % (42.0-52.0); HEMOGLOBIN 8.7 g/dl (14.0-18.0); LYMPHOCYTES # 0.6 10^3/ul (0.8-2.9); LYMPHOCYTES % 7.4 % (15.0-51.0); MEAN CORPUSCULAR HGB CONC 33.9 g/dl (32.0-37.0); MEAN CORPUSCULAR VOLUME 88.6 fl (82.0-101.0); MEAN PLATELET VOLUME 9.7 fl (7.4-10.4); MONOCYTE # 0.5 10^3/ul (0.3-0.9); MONOCYTES % 7.3 % (0.0-11.0); NEUTROPHIL # 6.2 10^3/ul (1.6-7.5); NEUTROPHILS % 84.1 % (39.0-77.0); PLATELET COUNT 207 10^3/UL (140-440); RED CELL DISTRIBUTION WIDTH 13.9 % (11.5-14.5); UNCORRECTED WBC 7.4 10^3/ul (4.8-10.8); WHITE BLOOD COUNT 7.4 10^3/ul (4.8-10.8)
[2016-03-06 07:01] LABS: CONDITION 1
[2016-03-06] MEDS: GLYCOPYRROLATE 1 MG TAB GTB SCH ×3 (08:41→20:01)
[2016-03-06] MEDS: MULTIVITAMINS THERAPEUTIC TAB PO SCH (08:41)
[2016-03-06] MEDS: ESCITALOPRAM 10 MG TAB PO SCH (08:42)
[2016-03-06] MEDS: ZINC SULFATE 220 MG CAP GTB SCH (08:42)
[2016-03-06] MEDS: RISPERIDONE 0.25 MG TAB PO SCH ×2 (08:42→20:02)
[2016-03-06] MEDS: HYDROmorphONE 1 MG/ML SYG IV PRN ×3 (08:43→23:14)
[2016-03-06] MEDS: COLLAGENASE 30 GM TUBE TOP SCH (08:44)
[2016-03-06] MEDS: MUPIROCIN 2% 22 GM OINT TOP SCH ×2 (08:45→20:02)
[2016-03-06] MEDS: MEROPENEM 500 MG in SOD CHLORIDE 0.9% 100 ML IVPB SCH ×2 (08:47→20:01)
[2016-03-06] MEDS: SILVER NITRATE SWAB TOP SCH ×2 (08:47→20:02)
--- NOTE | 2016-03-06 08:58 | CONS ---
Date/Time of Note Date/Time of Note DATE: 03/06/16 TIME: 08:58 Consultation Date/Type/Reason Admit Date/Time Feb 24, 2016 at 05:06 Initial Consult Date Type of Consultation: ID Referring Provider: JOSÉ ANTONIO MIRZA MD 24 HR Interval Summary Free Text/Dictation Assessment/Plan 1. Septic shock. 2. Urosepsis. 3. Chronic ventilator-dependent respiratory failure. 4. Chronic anemia. 5. Chronic kidney disease with acute kidney injury, gradually improving. 6. Status post spinal cord injury with paraplegia. 7. Status post tracheostomy. 8. Status post gastrostomy 9. Sinus wenkeback with juntional escape rhytm 10.S/P hypotension. RECOMMENDATIONS: 1. Continue long-term ventilator support. 2. Continue antibiotics as per infectious disease emergency management consultant. 3. Continue hydration. 4. Continue G-tube feedings. 5. Continue DVT prophylaxis and GI prophylaxis. 6. Avoid AV blockers due to junctional escape rhythm and Wenckebach - no Therapy necessary 7. Off pressors and EF is normal Subjective hx not possible: pt non-verbal Exam/Review of Systems Vital Signs Vitals Vital Signs Date Time Temp Pulse Resp B/P Pulse Ox O2 Delivery O2 Flow Rate FiO2 03/06/16 07:31 98.1 77 19 124/72 96 03/06/16 07:20 40 03/04/16 20:00 Mechanical Ventilator Intake and Output 03/05/16 03/05/16 03/06/16 15:00 23:00 07:00 Intake Total 100 ml 1280 ml Output Total 1500 ml Balance 100 ml -220 ml Results Result Diagram: 03/06/16 0550 03/06/16 0507 Results 24 hrs Laboratory Tests Test 03/05/16 09:10 03/06/16 05:07 03/06/16 05:50 Anion Gap 16 12 Basophils # 0.0 0.0 Basophils % 0.4 0.1 Blood Urea Nitrogen 26 H 33 H Calcium Level 8.4 8.2 L Carbon Dioxide Level 22 24 Chloride Level 110 111 H Creatinine 1.66 H 1.81 H Eosinophils # 0.1 0.1 Eosinophils % 0.9 1.1 Glucose Level 82 98 Hematocrit 26.7 L 25.7 L Hemoglobin 9.1 L 8.7 L Lymphocytes # 0.6 L 0.6 L Lymphocytes % 9.3 L 7.4 L Mean Corpuscular Hemoglobin 30.1 30.0 Mean Corpuscular Hemoglobin Concent 33.9 33.9 Mean Corpuscular Volume 88.6 88.6 Mean Platelet Volume 9.1 9.7 Monocytes # 0.5 0.5 Monocytes % 7.6 7.3 Neutrophils # 5.4 6.2 Neutrophils % 81.8 H 84.1 H Nucleated Red Blood Cells # 0.0 0.0 Nucleated Red Blood Cells % 0.0 0.0 Platelet Count 205 # 207 Potassium Level 5.1 5.3 H Red Blood Count 3.01 #L 2.90 L Red Cell Distribution Width 13.4 13.9 Sodium Level 143 142 White Blood Count 6.6 # 7.4 Medications Medications Current Medications Ondansetron HCl (Zofran Inj) 4 mg Q6H PRN IV NAUSEA AND/OR VOMITING Last administered on 02/27/16 12:46; Admin Dose 4 MG; Start 02/24/16 at 07:00 Acetaminophen (Tylenol Tab) 650 mg Q6H PRN PO PAIN LEVEL 1-3 OR FEVER Last administered on 02/25/16 08:41; Admin Dose 650 MG; Start 02/24/16 at 07:00 Morphine Sulfate (morphine) 2 mg Q4H PRN IV PAIN LEVEL 7-10 Last administered on 03/05/16 20:08; Admin Dose 2 MG; Start 02/24/16 at 07:00 Escitalopram Oxalate (Lexapro) 10 mg DAILY PO Last administered on 03/06/16 08 :42; Admin Dose 10 MG; Start 02/24/16 at 09:00 Magnesium Hydroxide (Milk Of Mag) 30 ml DAILY PRN PO CONSTIPATION; Start at 07:00 Multivitamins Therapeutic (Theragran) 1 tab DAILY PO Last administered on 08:41; Admin Dose 1 TAB; Start 02/24/16 at 09:00 Polyethylene Glycol (Miralax) 17 gm QHS PO Last administered on 03/04/16 21:10 ; Admin Dose 17 GM; Start 02/24/16 at 21:00 Risperidone (Risperdal) 0.5 mg BID PO Last administered on 03/06/16 08:42; Admin Dose 0.5 MG; Start 02/24/16 at 09:00 Hydromorphone HCl (Dilaudid) 0.5 mg Q6H PRN IV pain Last administered on 08:43; Admin Dose 0.5 MG; Start 02/24/16 at 16:00 Acetaminophen/ Hydrocodone Bitart ([place] (5/325)) 1 tab Q4H PRN GTB pain Last administered on 02/29/16 20:07; Admin Dose 1 TAB; Start 02/25/16 at 12:00 Zinc Sulfate (Zinc Sulfate) 220 mg DAILY GTB Last administered on 03/06/16 08: 42; Admin Dose 220 MG; Start 02/26/16 at 09:00 IV Flush (NS 10 ml) 10 ml PRN PRN IV IV PROTOCOL; Start 02/25/16 at 15:30 Mupirocin (Bactroban) 1 applic BID TOP Last administered on 03/06/16 08:45; Admin Dose 1 APPLIC; Start 02/26/16 at 18:30 Dextrose (D50w Syringe) 50 ml PRN PRN IV DECREASED GLUCOSE Last administered on 02/27/16 07:21; Admin Dose 50 ML; Start 02/27/16 at 07:00 Glycopyrrolate (Robinul) 1 mg TID GTB Last administered on 03/06/16 08:41; Admin Dose 1 MG; Start 02/27/16 at 13:00 Pantoprazole 40 mg 40 mg DAILY@06 IV Last administered on 03/06/16 05:24; Admin Dose 40 MG; Start 02/28/16 at 06:00 Phenylephrine HCl 40 mg/Dextrose 500 ml @ 75 mls/hr TITRATE IV Last administered on 03/01/16 16:42; Admin Dose 7.5 MLS/HR; Start 02/27/16 at 16:00 Meropenem/Sodium Chloride (Merrem/NS) 100 ml @ 200 mls/hr Q12 IVPB Last administered on 03/06/16 08:47; Admin Dose 200 MLS/HR; Start 02/27/16 at 21:00 Silver Nitrate (Silver Nitrate Swabs) 1 stick BID TOP Last administered on 03/06 08:47; Admin Dose 1 STICK; Start 03/01/16 at 10:30 Collagenase 1 applic 1 applic DAILY TOP Last administered on 03/06/16 08:44; Admin Dose 1 APPLIC; Start 03/03/16 at 09:00 Sodium Chloride (1/2 NS) 1,000 ml @ 50 mls/hr Q20H IV Last administered on t 20:37; Admin Dose 50 MLS/HR; Start 03/03/16 at 14:30 LIN RATLIFF MD Mar 06, 2016 08:58
--- NOTE | 2016-03-06 11:08 | PN ---
Date/Time of Note Date/Time of Note DATE: 03/06/16 TIME: 11:05 Assessment/Plan VTE Prophylaxis VTE Prophylaxis Intervention: SCD's Lines/Catheters IV Catheter Type (from [facility]): PICC Line Urinary Cath still in place: Yes Assessment/Plan Assessment/Plan - Severe sepsis with shock, most likely, secondary to urinary tract infection. Dr. Maciel is following patient in infectious disease consultation. Continue antibiotics per ID. Patient is currently on Meropenem, Vancomycin, Diflucan. Continue IV fluids ICU care. - Urinary tract infection per urinalysis. - Neurogenic bladder with suprapubic catheter. Status post suprapubic catheter change by Dr. Marquez, urology. - Chronic ventilator dependent respiratory failure. Dr. Ames is following patient in a pulmonology consultation. Continue ventilator support broncho dilators. - cont PT - Dysphagia with a G-tube. Continue current tube feeding. Aspiration precautions.No residual - Acute renal failure. The patient is followed by Dr. Wright in nephrology consultation. Continue IV fluids. Monitor BUN and creatinine. 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 - Sacral decubitus stage III. Continue offloading, continue current wound care. - Hyperkalemia -Kayexalate 30 gm po x 1 - BMP AM - Malfunctioning GT - sp GT changed by DR jeff Continue sequential compression device for deep venous thrombosis prophylaxis and Protonix for peptic ulcer disease prophylaxis. Further recommendations based on clinical course. Plan of care discussed with Dr. Barreto. Subjective 24 Hr Interval Summary Constitutional: requiring O2 Eyes: no complaints ENT: no complaints Respiratory: no complaints Cardiovascular: no complaints Gastrointestinal: no complaints Genitourinary: no complaints Musculoskeletal: no complaints Skin: no complaints Neurologic: no complaints Endocrine: no complaints Exam/Review of Systems Vital Signs Vitals Vital Signs Date Time Temp Pulse Resp B/P Pulse Ox O2 Delivery O2 Flow Rate FiO2 03/06/16 09:30 104 18 96 40 03/06/16 07:31 98.1 124/72 03/04/16 20:00 Mechanical Ventilator Intake and Output 03/05/16 03/05/16 03/06/16 15:00 23:00 07:00 Intake Total 100 ml 1280 ml Output Total 1500 ml Balance 100 ml -220 ml Exam Constitutional: alert, well developed Eyes: PERRL, nl sclera ENMT: nl external ears & nose Neck: non-tender Respiratory: diminished breath sounds Cardiovascular: nl pulses Gastrointestinal: non-tender, soft Musculoskeletal: muscle weakness Extremities: normal pulses Neurological: nl speech, other Lymph: nontender Results Result Diagram: 03/06/16 0550 03/06/16 0507 Results 24 hrs Laboratory Tests Test 03/06/16 05:07 03/06/16 05:50 Anion Gap 12 Blood Urea Nitrogen 33 H Calcium Level 8.2 L Carbon Dioxide Level 24 Chloride Level 111 H Creatinine 1.81 H Glucose Level 98 Potassium Level 5.3 H Sodium Level 142 Basophils # 0.0 Basophils % 0.1 Eosinophils # 0.1 Eosinophils % 1.1 Hematocrit 25.7 L Hemoglobin 8.7 L Lymphocytes # 0.6 L Lymphocytes % 7.4 L Mean Corpuscular Hemoglobin 30.0 Mean Corpuscular Hemoglobin Concent 33.9 Mean Corpuscular Volume 88.6 Mean Platelet Volume 9.7 Monocytes # 0.5 Monocytes % 7.3 Neutrophils # 6.2 Neutrophils % 84.1 H Nucleated Red Blood Cells # 0.0 Nucleated Red Blood Cells % 0.0 Platelet Count 207 Red Blood Count 2.90 L Red Cell Distribution Width 13.9 White Blood Count 7.4 Medications Medications Current Medications Ondansetron HCl (Zofran Inj) 4 mg Q6H PRN IV NAUSEA AND/OR VOMITING Last administered on 02/27/16 12:46; Admin Dose 4 MG; Start 02/24/16 at 07:00 Acetaminophen (Tylenol Tab) 650 mg Q6H PRN PO PAIN LEVEL 1-3 OR FEVER Last administered on 02/25/16 08:41; Admin Dose 650 MG; Start 02/24/16 at 07:00 Morphine Sulfate (morphine) 2 mg Q4H PRN IV PAIN LEVEL 7-10 Last administered on 03/05/16 20:08; Admin Dose 2 MG; Start 02/24/16 at 07:00 Escitalopram Oxalate (Lexapro) 10 mg DAILY PO Last administered on 03/06/16 08 :42; Admin Dose 10 MG; Start 02/24/16 at 09:00 Magnesium Hydroxide (Milk Of Mag) 30 ml DAILY PRN PO CONSTIPATION; Start at 07:00 Multivitamins Therapeutic (Theragran) 1 tab DAILY PO Last administered on 08:41; Admin Dose 1 TAB; Start 02/24/16 at 09:00 Polyethylene Glycol (Miralax) 17 gm QHS PO Last administered on 03/04/16 21:10 ; Admin Dose 17 GM; Start 02/24/16 at 21:00 Risperidone (Risperdal) 0.5 mg BID PO Last administered on 03/06/16 08:42; Admin Dose 0.5 MG; Start 02/24/16 at 09:00 Hydromorphone HCl (Dilaudid) 0.5 mg Q6H PRN IV pain Last administered on 08:43; Admin Dose 0.5 MG; Start 02/24/16 at 16:00 Acetaminophen/ Hydrocodone Bitart ([place] (5/325)) 1 tab Q4H PRN GTB pain Last administered on 02/29/16 20:07; Admin Dose 1 TAB; Start 02/25/16 at 12:00 Zinc Sulfate (Zinc Sulfate) 220 mg DAILY GTB Last administered on 03/06/16 08: 42; Admin Dose 220 MG; Start 02/26/16 at 09:00 IV Flush (NS 10 ml) 10 ml PRN PRN IV IV PROTOCOL; Start 02/25/16 at 15:30 Mupirocin (Bactroban) 1 applic BID TOP Last administered on 03/06/16 08:45; Admin Dose 1 APPLIC; Start 02/26/16 at 18:30 Dextrose (D50w Syringe) 50 ml PRN PRN IV DECREASED GLUCOSE Last administered on 02/27/16 07:21; Admin Dose 50 ML; Start 02/27/16 at 07:00 Glycopyrrolate (Robinul) 1 mg TID GTB Last administered on 03/06/16 08:41; Admin Dose 1 MG; Start 02/27/16 at 13:00 Pantoprazole 40 mg 40 mg DAILY@06 IV Last administered on 03/06/16 05:24; Admin Dose 40 MG; Start 02/28/16 at 06:00 Phenylephrine HCl 40 mg/Dextrose 500 ml @ 75 mls/hr TITRATE IV Last administered on 03/01/16 16:42; Admin Dose 7.5 MLS/HR; Start 02/27/16 at 16:00 Meropenem/Sodium Chloride (Merrem/NS) 100 ml @ 200 mls/hr Q12 IVPB Last administered on 03/06/16 08:47; Admin Dose 200 MLS/HR; Start 02/27/16 at 21:00 Silver Nitrate (Silver Nitrate Swabs) 1 stick BID TOP Last administered on 03/06 08:47; Admin Dose 1 STICK; Start 03/01/16 at 10:30 Collagenase 1 applic 1 applic DAILY TOP Last administered on 03/06/16 08:44; Admin Dose 1 APPLIC; Start 03/03/16 at 09:00 Sodium Chloride (1/2 NS) 1,000 ml @ 50 mls/hr Q20H IV Last administered on 20:37; Admin Dose 50 MLS/HR; Start 03/03/16 at 14:30 NAE VELAZCO Mar 06, 2016 11:07
[2016-03-06] MEDS ORDERED: NA POLYST SULFON 15 GM/60 ML BTL PO ONE ×2 (11:30→13:00)
--- NOTE | 2016-03-06 12:56 | CONS ---
Date/Time of Note Date/Time of Note DATE: 03/06/16 TIME: 12:55 Assessment/Plan Assessment/Plan Chief Complaint/Hosp Course IMPRESSION: The patient has: 1. Acute kidney injury.better 2. Sepsis. 3. Underlying prerenal azotemia. 4. Underlying acute tubular necrosis due to sepsis. 5. Anion gap metabolic acidosis. 6. Hyponatremia. 7. Leukocytosis. 8. Anemia. 9. Urinary tract infection. 10. peg 11. Paraplegia. 12. Respiratory failure and tracheostomy. 13 hyperkalemia plan iv fluid ck labs renal stable karyn Problems: Consultation Date/Type/Reason Admit Date/Time Feb 24, 2016 at 05:06 Type of Consultation: renal Referring Provider: JOSÉ ANTONIO MIRZA MD 24 HR Interval Summary Constitutional: no complaints Exam/Review of Systems Vital Signs Vitals Vital Signs Date Time Temp Pulse Resp B/P Pulse Ox O2 Delivery O2 Flow Rate FiO2 03/06/16 11:21 97.6 75 19 123/75 95 03/06/16 11:15 40 03/04/16 20:00 Mechanical Ventilator Intake and Output 03/05/16 03/05/16 03/06/16 15:00 23:00 07:00 Intake Total 100 ml 1280 ml Output Total 1500 ml Balance 100 ml -220 ml Exam Neck: supple Respiratory: clear to auscultation Cardiovascular: regular rate and rhythm Gastrointestinal: soft Musculoskeletal: nl extremities to inspection Extremities: normal pulses Results Result Diagram: 03/06/16 0550 03/06/16 0507 Results 24 hrs Laboratory Tests Test 03/06/16 05:07 03/06/16 05:50 Anion Gap 12 Blood Urea Nitrogen 33 H Calcium Level 8.2 L Carbon Dioxide Level 24 Chloride Level 111 H Creatinine 1.81 H Glucose Level 98 Potassium Level 5.3 H Sodium Level 142 Basophils # 0.0 Basophils % 0.1 Eosinophils # 0.1 Eosinophils % 1.1 Hematocrit 25.7 L Hemoglobin 8.7 L Lymphocytes # 0.6 L Lymphocytes % 7.4 L Mean Corpuscular Hemoglobin 30.0 Mean Corpuscular Hemoglobin Concent 33.9 Mean Corpuscular Volume 88.6 Mean Platelet Volume 9.7 Monocytes # 0.5 Monocytes % 7.3 Neutrophils # 6.2 Neutrophils % 84.1 H Nucleated Red Blood Cells # 0.0 Nucleated Red Blood Cells % 0.0 Platelet Count 207 Red Blood Count 2.90 L Red Cell Distribution Width 13.9 White Blood Count 7.4 Medications Medications Current Medications Ondansetron HCl (Zofran Inj) 4 mg Q6H PRN IV NAUSEA AND/OR VOMITING Last administered on 02/27/16 12:46; Admin Dose 4 MG; Start 02/24/16 at 07:00 Acetaminophen (Tylenol Tab) 650 mg Q6H PRN PO PAIN LEVEL 1-3 OR FEVER Last administered on 02/25/16 08:41; Admin Dose 650 MG; Start 02/24/16 at 07:00 Morphine Sulfate (morphine) 2 mg Q4H PRN IV PAIN LEVEL 7-10 Last administered on 03/05/16 20:08; Admin Dose 2 MG; Start 02/24/16 at 07:00 Escitalopram Oxalate (Lexapro) 10 mg DAILY PO Last administered on 03/06/16 08 :42; Admin Dose 10 MG; Start 02/24/16 at 09:00 Magnesium Hydroxide (Milk Of Mag) 30 ml DAILY PRN PO CONSTIPATION; Start at 07:00 Multivitamins Therapeutic (Theragran) 1 tab DAILY PO Last administered on 08:41; Admin Dose 1 TAB; Start 02/24/16 at 09:00 Polyethylene Glycol (Miralax) 17 gm QHS PO Last administered on 03/04/16 21:10 ; Admin Dose 17 GM; Start 02/24/16 at 21:00 Risperidone (Risperdal) 0.5 mg BID PO Last administered on 03/06/16 08:42; Admin Dose 0.5 MG; Start 02/24/16 at 09:00 Hydromorphone HCl (Dilaudid) 0.5 mg Q6H PRN IV pain Last administered on 08:43; Admin Dose 0.5 MG; Start 02/24/16 at 16:00 Acetaminophen/ Hydrocodone Bitart ([place] (5/325)) 1 tab Q4H PRN GTB pain Last administered on 02/29/16 20:07; Admin Dose 1 TAB; Start 02/25/16 at 12:00 Zinc Sulfate (Zinc Sulfate) 220 mg DAILY GTB Last administered on 03/06/16 08: 42; Admin Dose 220 MG; Start 02/26/16 at 09:00 IV Flush (NS 10 ml) 10 ml PRN PRN IV IV PROTOCOL; Start 02/25/16 at 15:30 Mupirocin (Bactroban) 1 applic BID TOP Last administered on 03/06/16 08:45; Admin Dose 1 APPLIC; Start 02/26/16 at 18:30 Dextrose (D50w Syringe) 50 ml PRN PRN IV DECREASED GLUCOSE Last administered on 02/27/16 07:21; Admin Dose 50 ML; Start 02/27/16 at 07:00 Glycopyrrolate (Robinul) 1 mg TID GTB Last administered on 03/06/16 12:53; Admin Dose 1 MG; Start 02/27/16 at 13:00 Pantoprazole 40 mg 40 mg DAILY@06 IV Last administered on 03/06/16 05:24; Admin Dose 40 MG; Start 02/28/16 at 06:00 Phenylephrine HCl 40 mg/Dextrose 500 ml @ 75 mls/hr TITRATE IV Last administered on 03/01/16 16:42; Admin Dose 7.5 MLS/HR; Start 02/27/16 at 16:00 Meropenem/Sodium Chloride (Merrem/NS) 100 ml @ 200 mls/hr Q12 IVPB Last administered on 03/06/16 08:47; Admin Dose 200 MLS/HR; Start 02/27/16 at 21:00 Silver Nitrate (Silver Nitrate Swabs) 1 stick BID TOP Last administered on 03/06 08:47; Admin Dose 1 STICK; Start 03/01/16 at 10:30 Collagenase 1 applic 1 applic DAILY TOP Last administered on 03/06/16 08:44; Admin Dose 1 APPLIC; Start 03/03/16 at 09:00 Sodium Chloride (1/2 NS) 1,000 ml @ 50 mls/hr Q20H IV Last administered on 20:37; Admin Dose 50 MLS/HR; Start 03/03/16 at 14:30 BRIANDA HIRSCH MD Mar 06, 2016 12:56
--- NOTE | 2016-03-06 15:03 | CONS ---
Date/Time of Note Date/Time of Note DATE: 03/06/16 TIME: 14:54 Assessment/Plan Assessment/Plan Chief Complaint/Hosp Course D PROGRESS NOTE TOTAL ABX DAY #12 => Merrem #9 s/p Vanco IV + Cefepime 24H INTERVAL SUMMARY * Clinically improved -- VSS, NAD, No fevers, passed swallow eval * Repeat urine (-)48H = FINAL RESULT * GT site growing (+PSAR=MDRO, yeast preliminary => s/p GT change by Dr. Krause * Per cards note: Sinus Wenckebach with junctional escape rhythm = AVOID AV [place] BLOCKING MEDS PHYSICAL EXAMINATION: GENERAL: 40 yo M, VSS, NAD HEENT: Unremarkable NECK: Trach CHEST: Equal chest rise bilaterally HEART: Pulse RRR ABDOMEN: Soft EXTREMITIES: Warm SKIN: See photos =>Sacral Decub STG III ID ASSESSMENT: 40 yo M w/PMHx incomplete quadriplegia, Trach, Peg, neurogenic bladder w/ suprapubic catheter admit with: 1. Status post septic shock. 2. Urinary tract infection as per urinalysis, so far 3 urine cultures were consistent with contaminated suprapubic catheter * The patient has new suprapubic catheter. 3. Chronic respiratory failure. 4. PSAR GT site cellulitis 5. Staph CoNS bacteremia on admission 02/07 bottles = consistent with skin contaminated sample 6. Sacral decub III (+)MRSA Nares ->Bactroban INVASIVES: Trach/PEG/Suprapubic cath ABX ALLERGY: KNDA CURRENT ABX: TOTAL ABX DAY #12 => Merrem #9 s/p Vanco IV + Cefepime ID RECOMMENDATIONS: 1. Continue Merrem -> DC tomorrow if Celso Mancilla NP concurs 2. Local wound care, off loading 3. Per cards note: Sinus Wenckebach with junctional escape rhythm = AVOID AV [place] BLOCKING MEDS . Problems: Consultation Date/Type/Reason Admit Date/Time Feb 24, 2016 at 05:06 Type of Consultation: ID Referring Provider: JOSÉ ANTONIO MIRZA MD Exam/Review of Systems Vital Signs Vitals Vital Signs Date Time Temp Pulse Resp B/P Pulse Ox O2 Delivery O2 Flow Rate FiO2 03/06/16 13:25 69 18 97 40 03/06/16 11:21 97.6 123/75 03/04/16 20:00 Mechanical Ventilator Intake and Output 03/05/16 03/05/16 03/06/16 15:00 23:00 07:00 Intake Total 100 ml 1280 ml Output Total 1500 ml Balance 100 ml -220 ml Results Result Diagram: 03/06/16 0550 03/06/16 0507 Results 24 hrs Laboratory Tests Test 03/06/16 05:07 03/06/16 05:50 Anion Gap 12 Blood Urea Nitrogen 33 H Calcium Level 8.2 L Carbon Dioxide Level 24 Chloride Level 111 H Creatinine 1.81 H Glucose Level 98 Potassium Level 5.3 H Sodium Level 142 Basophils # 0.0 Basophils % 0.1 Eosinophils # 0.1 Eosinophils % 1.1 Hematocrit 25.7 L Hemoglobin 8.7 L Lymphocytes # 0.6 L Lymphocytes % 7.4 L Mean Corpuscular Hemoglobin 30.0 Mean Corpuscular Hemoglobin Concent 33.9 Mean Corpuscular Volume 88.6 Mean Platelet Volume 9.7 Monocytes # 0.5 Monocytes % 7.3 Neutrophils # 6.2 Neutrophils % 84.1 H Nucleated Red Blood Cells # 0.0 Nucleated Red Blood Cells % 0.0 Platelet Count 207 Red Blood Count 2.90 L Red Cell Distribution Width 13.9 White Blood Count 7.4 Medications Medications Current Medications Ondansetron HCl (Zofran Inj) 4 mg Q6H PRN IV NAUSEA AND/OR VOMITING Last administered on 02/27/16 12:46; Admin Dose 4 MG; Start 02/24/16 at 07:00 Acetaminophen (Tylenol Tab) 650 mg Q6H PRN PO PAIN LEVEL 1-3 OR FEVER Last administered on 02/25/16 08:41; Admin Dose 650 MG; Start 02/24/16 at 07:00 Morphine Sulfate (morphine) 2 mg Q4H PRN IV PAIN LEVEL 7-10 Last administered on 03/05/16 20:08; Admin Dose 2 MG; Start 02/24/16 at 07:00 Escitalopram Oxalate (Lexapro) 10 mg DAILY PO Last administered on 03/06/16 08 :42; Admin Dose 10 MG; Start 02/24/16 at 09:00 Magnesium Hydroxide (Milk Of Mag) 30 ml DAILY PRN PO CONSTIPATION; Start at 07:00 Multivitamins Therapeutic (Theragran) 1 tab DAILY PO Last administered on 08:41; Admin Dose 1 TAB; Start 02/24/16 at 09:00 Polyethylene Glycol (Miralax) 17 gm QHS PO Last administered on 03/04/16 21:10 ; Admin Dose 17 GM; Start 02/24/16 at 21:00 Risperidone (Risperdal) 0.5 mg BID PO Last administered on 03/06/16 08:42; Admin Dose 0.5 MG; Start 02/24/16 at 09:00 Hydromorphone HCl (Dilaudid) 0.5 mg Q6H PRN IV pain Last administered on 08:43; Admin Dose 0.5 MG; Start 02/24/16 at 16:00 Acetaminophen/ Hydrocodone Bitart ([place] (5/325)) 1 tab Q4H PRN GTB pain Last administered on 02/29/16 20:07; Admin Dose 1 TAB; Start 02/25/16 at 12:00 Zinc Sulfate (Zinc Sulfate) 220 mg DAILY GTB Last administered on 03/06/16 08: 42; Admin Dose 220 MG; Start 02/26/16 at 09:00 IV Flush (NS 10 ml) 10 ml PRN PRN IV IV PROTOCOL; Start 02/25/16 at 15:30 Mupirocin (Bactroban) 1 applic BID TOP Last administered on 03/06/16 08:45; Admin Dose 1 APPLIC; Start 02/26/16 at 18:30 Dextrose (D50w Syringe) 50 ml PRN PRN IV DECREASED GLUCOSE Last administered on 02/27/16 07:21; Admin Dose 50 ML; Start 02/27/16 at 07:00 Glycopyrrolate (Robinul) 1 mg TID GTB Last administered on 03/06/16 12:53; Admin Dose 1 MG; Start 02/27/16 at 13:00 Pantoprazole 40 mg 40 mg DAILY@06 IV Last administered on 03/06/16 05:24; Admin Dose 40 MG; Start 02/28/16 at 06:00 Phenylephrine HCl 40 mg/Dextrose 500 ml @ 75 mls/hr TITRATE IV Last administered on 03/01/16 16:42; Admin Dose 7.5 MLS/HR; Start 02/27/16 at 16:00 Meropenem/Sodium Chloride (Merrem/NS) 100 ml @ 200 mls/hr Q12 IVPB Last administered on 03/06/16 08:47; Admin Dose 200 MLS/HR; Start 02/27/16 at 21:00 Silver Nitrate (Silver Nitrate Swabs) 1 stick BID TOP Last administered on 03/06 08:47; Admin Dose 1 STICK; Start 03/01/16 at 10:30 Collagenase 1 applic 1 applic DAILY TOP Last administered on 03/06/16 08:44; Admin Dose 1 APPLIC; Start 03/03/16 at 09:00 Sodium Chloride (1/2 NS) 1,000 ml @ 50 mls/hr Q20H IV Last administered on 20:37; Admin Dose 50 MLS/HR; Start 03/03/16 at 14:30 KELSI CERDA NP Mar 06, 2016 15:02
[2016-03-06] MEDS: morphine 2 MG INJ IV PRN (18:13)
[2016-03-06] MEDS: MAGNESIUM HYDROXIDE 30ML CUP PO PRN ×2 (18:13→18:46)
--- NOTE | 2016-03-06 19:06 | PN ---
DATE: 03/06/2016 HISTORY OF PRESENT ILLNESS: The patient is resting comfortably. He is breathing without any respir atory distress with ventilator support through tracheostomy. He is on long-term ventilator support. PHYSICAL EXAMINATION: VITAL SIGNS: Temperature 97.6, blood pressure 123/75, pulse rate of 75, respirations 19, pulse oxim etry 95% saturation. NECK: Tracheal secretions are clear. No bleeding is seen. HEART: Regular rhythm. CHEST: Breath sounds are heard bilaterally. Lung tierney are clear. ABDOMEN: Soft, nondistended, tolerating gastrostomy tube feedings per nursing staff. Bowel sounds are normally present. No vomiting has been reported. EXTREMITIES: No edema. He is paraplegic. LABORATORIES: Lab tests from today show sodium 142, potassium 5.3, BUN 33, creatinine 1.81, glucose 98. The CBC shows the WBC 7400, hemoglobin 8.7, hematocrit 23.7, platelets within normal limits. The repeat urine culture shows no growth, taken on 03/04/2016. IMPRESSION: 1. Urosepsis. 2. Chronic respiratory failure, ventilatory dependent. 3. Chronic anemia. 4. Chronic kidney disease with acute kidney injury, improving. 5. Status post paraplegia secondary to injury. 6. Status post tracheostomy. 7. Status post gastrostomy. RECOMMENDATIONS: 1. Continue long-term ventilator support. 2. Continue antibiotics as prescribed by the infectious disease spa consultant. 3. Continue deep vein thrombosis prophylaxis and gastrointestinal prophylaxis. Discussed the patient's and treatment with Dr. Barreto, primary physician. It is okay to sta rt discharge planning which will be done probably starting tomorrow. Dictated By: HUMBERTO PEREZ MD SR/NTS Conf#: [id number] DID#: [id number]
[2016-03-06] MEDS: ZOLPIDEM 5 MG TAB PO PRN (20:02)
[2016-03-06] MEDS: POLYETHYLENE GLYCOL 17 GM PACKET PO SCH (20:02)
[2016-03-06] MEDS: SOD CHLORIDE 0.45% 1,000 ML IV SCH (21:57)
[2016-03-06] MEDS: LACTULOSE 30ML CUP PO SCH (23:05)
[2016-03-07] VITALS (25 sets, daily range): BP systolic 98–130; BP diastolic 56–76; PULSE 60–120; RESP 15–25
[2016-03-07] MEDS: morphine 2 MG INJ IV PRN ×4 (04:45→22:23)
[2016-03-07] MEDS: PANTOPRAZOLE 40 MG INJ IV SCH (05:22)
[2016-03-07] MEDS: LACTULOSE 30ML CUP PO SCH ×4 (05:22→23:15)
[2016-03-07] MEDS: HYDROCODONE/APAP (5/325) TAB GTB PRN (05:59)
[2016-03-07 06:29] LABS: EOSINOPHILS # 0.1 10^3/ul (0.0-0.5); EOSINOPHILS % 0.8 % (0.0-7.0); HEMATOCRIT 25.5 % (42.0-52.0); HEMOGLOBIN 8.7 g/dl (14.0-18.0); LYMPHOCYTES # 0.4 10^3/ul (0.8-2.9); LYMPHOCYTES % 6.4 % (15.0-51.0); MEAN CORPUSCULAR HEMOGLOBIN 30.4 pg (29.0-33.0); MEAN CORPUSCULAR VOLUME 89.3 fl (82.0-101.0); MEAN PLATELET VOLUME 9.4 fl (7.4-10.4); MONOCYTE # 0.5 10^3/ul (0.3-0.9); MONOCYTES % 7.6 % (0.0-11.0); NEUTROPHIL # 5.8 10^3/ul (1.6-7.5); NEUTROPHILS % 85.2 % (39.0-77.0); PLATELET COUNT 185 10^3/UL (140-440); RED BLOOD COUNT 2.85 10^6/ul (4.70-6.10); RED CELL DISTRIBUTION WIDTH 13.5 % (11.5-14.5); UNCORRECTED WBC 6.8 10^3/ul (4.8-10.8); WHITE BLOOD COUNT 6.8 10^3/ul (4.8-10.8)
[2016-03-07 06:41] LABS: CONDITION 1
[2016-03-07 06:45] LABS: POTASSIUM 4.8 mmol/L (3.5-5.1)
[2016-03-07 06:47] LABS: CREATININE 1.64 mg/dl (0.61-1.24)
[2016-03-07 06:48] LABS: CALCIUM 8.3 mg/dl (8.4-10.2)
[2016-03-07] MEDS: ZINC SULFATE 220 MG CAP GTB SCH (08:55)
[2016-03-07] MEDS: MEROPENEM 500 MG in SOD CHLORIDE 0.9% 100 ML IVPB SCH ×2 (08:55→21:04)
[2016-03-07] MEDS: GLYCOPYRROLATE 1 MG TAB GTB SCH ×3 (08:55→21:02)
[2016-03-07] MEDS: RISPERIDONE 0.25 MG TAB PO SCH ×2 (08:56→21:06)
[2016-03-07] MEDS: MULTIVITAMINS THERAPEUTIC TAB PO SCH (08:56)
[2016-03-07] MEDS: ESCITALOPRAM 10 MG TAB PO SCH (08:56)
[2016-03-07] MEDS: MUPIROCIN 2% 22 GM OINT TOP SCH ×2 (08:56→21:05)
[2016-03-07] MEDS: SILVER NITRATE SWAB TOP SCH ×2 (08:58→21:05)
[2016-03-07] MEDS: COLLAGENASE 30 GM TUBE TOP SCH (09:00)
[2016-03-07] MEDS: HYDROmorphONE 1 MG/ML SYG IV PRN ×3 (10:23→23:13)
--- NOTE | 2016-03-07 16:03 | CONS ---
Date/Time of Note Date/Time of Note DATE: 03/07/16 TIME: 16:02 Assessment/Plan Assessment/Plan Chief Complaint/Hosp Course IMPRESSION: The patient has: 1. Acute kidney injury.better 2. Sepsis. 3. Underlying prerenal azotemia. 4. Underlying acute tubular necrosis due to sepsis. 5. Anion gap metabolic acidosis. 6. res failure 7. Leukocytosis. 8. Anemia. 9. Urinary tract infection. 10. peg 11. Paraplegia. 12. Respiratory failure and tracheostomy. 13 hyperkalemia plan iv fluid ck labs renal stable jenniferbetzy Problems: Consultation Date/Type/Reason Admit Date/Time Feb 24, 2016 at 05:06 Type of Consultation: renal Referring Provider: JOSÉ ANTONIO MIRZA MD Exam/Review of Systems Vital Signs Vitals Vital Signs Date Time Temp Pulse Resp B/P Pulse Ox O2 Delivery O2 Flow Rate FiO2 03/07/16 15:20 88 22 100 03/07/16 15:06 98.2 111/70 03/07/16 05:57 40 03/04/16 20:00 Mechanical Ventilator Intake and Output 03/06/16 03/06/16 03/07/16 15:00 23:00 07:00 Intake Total 1800 ml 740 ml Output Total 3000 ml 1200 ml Balance -1200 ml -460 ml Exam Neck: supple Respiratory: clear to auscultation Gastrointestinal: soft Results Result Diagram: 03/07/16 0546 03/07/16 0546 Results 24 hrs Laboratory Tests Test 03/07/16 05:46 Anion Gap 18 H Basophils # 0.0 Basophils % 0.0 Blood Urea Nitrogen 39 H Calcium Level 8.3 L Carbon Dioxide Level 22 Chloride Level 112 H Creatinine 1.64 H Eosinophils # 0.1 Eosinophils % 0.8 Glucose Level 104 Hematocrit 25.5 L Hemoglobin 8.7 L Lymphocytes # 0.4 L Lymphocytes % 6.4 L Mean Corpuscular Hemoglobin 30.4 Mean Corpuscular Hemoglobin Concent 34.0 Mean Corpuscular Volume 89.3 Mean Platelet Volume 9.4 Monocytes # 0.5 Monocytes % 7.6 Neutrophils # 5.8 Neutrophils % 85.2 H Nucleated Red Blood Cells # 0.0 Nucleated Red Blood Cells % 0.0 Platelet Count 185 Potassium Level 4.8 Red Blood Count 2.85 L Red Cell Distribution Width 13.5 Sodium Level 147 H White Blood Count 6.8 Medications Medications Current Medications Ondansetron HCl (Zofran Inj) 4 mg Q6H PRN IV NAUSEA AND/OR VOMITING Last administered on 02/27/16 12:46; Admin Dose 4 MG; Start 02/24/16 at 07:00 Acetaminophen (Tylenol Tab) 650 mg Q6H PRN PO PAIN LEVEL 1-3 OR FEVER Last administered on 02/25/16 08:41; Admin Dose 650 MG; Start 02/24/16 at 07:00 Morphine Sulfate (morphine) 2 mg Q4H PRN IV PAIN LEVEL 7-10 Last administered on 03/07/16 12:53; Admin Dose 2 MG; Start 02/24/16 at 07:00 Escitalopram Oxalate (Lexapro) 10 mg DAILY PO Last administered on 03/07/16 08 :56; Admin Dose 10 MG; Start 02/24/16 at 09:00 Magnesium Hydroxide (Milk Of Mag) 30 ml DAILY PRN PO CONSTIPATION; Start at 07:00 Multivitamins Therapeutic (Theragran) 1 tab DAILY PO Last administered on 08:56; Admin Dose 1 TAB; Start 02/24/16 at 09:00 Polyethylene Glycol (Miralax) 17 gm QHS PO Last administered on 03/06/16 20:02 ; Admin Dose 17 GM; Start 02/24/16 at 21:00 Risperidone (Risperdal) 0.5 mg BID PO Last administered on 03/07/16 08:56; Admin Dose 0.5 MG; Start 02/24/16 at 09:00 Hydromorphone HCl (Dilaudid) 0.5 mg Q6H PRN IV pain Last administered on 10:23; Admin Dose 0.5 MG; Start 02/24/16 at 16:00 Acetaminophen/ Hydrocodone Bitart ([place] (5/325)) 1 tab Q4H PRN GTB pain Last administered on 03/07/16 05:59; Admin Dose 1 TAB; Start 02/25/16 at 12:00 Zinc Sulfate (Zinc Sulfate) 220 mg DAILY GTB Last administered on 03/07/16 08: 55; Admin Dose 220 MG; Start 02/26/16 at 09:00 IV Flush (NS 10 ml) 10 ml PRN PRN IV IV PROTOCOL; Start 02/25/16 at 15:30 Mupirocin (Bactroban) 1 applic BID TOP Last administered on 03/07/16 08:56; Admin Dose 1 APPLIC; Start 02/26/16 at 18:30 Dextrose (D50w Syringe) 50 ml PRN PRN IV DECREASED GLUCOSE Last administered on 02/27/16 07:21; Admin Dose 50 ML; Start 02/27/16 at 07:00 Glycopyrrolate (Robinul) 1 mg TID GTB Last administered on 03/07/16 12:53; Admin Dose 1 MG; Start 02/27/16 at 13:00 Pantoprazole 40 mg 40 mg DAILY@06 IV Last administered on 03/07/16 05:22; Admin Dose 40 MG; Start 02/28/16 at 06:00 Meropenem/Sodium Chloride (Merrem/NS) 100 ml @ 200 mls/hr Q12 IVPB Last administered on 03/07/16 08:55; Admin Dose 200 MLS/HR; Start 02/27/16 at 21:00 Silver Nitrate (Silver Nitrate Swabs) 1 stick BID TOP Last administered on 03/07 08:58; Admin Dose 1 STICK; Start 03/01/16 at 10:30 Collagenase 1 applic 1 applic DAILY TOP Last administered on 03/06/16 08:44; Admin Dose 1 APPLIC; Start 03/03/16 at 09:00 Sodium Chloride (1/2 NS) 1,000 ml @ 50 mls/hr Q20H IV Last administered on 21:57; Admin Dose 50 MLS/HR; Start 03/03/16 at 14:30 Lactulose (Enulose) 20 gm Q6 PO Last administered on 03/07/16 12:53; Admin Dose 20 GM; Start 03/07/16 at 00:00 BRIANDA HIRSCH MD Mar 07, 2016 16:02
--- NOTE | 2016-03-07 17:18 | PN ---
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 Reportedly, he began to desaturate while he was at the [facility] facility. He was suctioned and he was being bagged through his trach on arrival to the ER. Initial vital signs show blood pressure of 75/49, heart rate 113, respiratory rate 14, oxygen saturation 100% on 50% FIO2. Temperature was 99.3. Laboratory result was notable for a WBC of 14,000, hemoglobin 10.1, which is stable. Sodium 134, BUN 104 and creatinine 2.97 from 1.7 about 9 months ago. The patient received weight-based IV fluids and was started on vancomycin and cefepime. His urinalysis shows a severe UTI. Chest x-ray showed mild vascular congestion with no focal consolidation or pleural effusion. Of note, the patient was last admitted here in April of last year for sepsis secondary to pneumonia and a UTI. At that time, the patient was discharged to [place] with the intent to wean off the vent . The patient overnight in the ICU had bradycardia with heart block and as such, I was akded to see the patient in cardiac consultation but bp remains stable and off pressors at this time Problems: Assessment/Plan 1. Septic shock. 2. Urosepsis. 3. Chronic ventilator-dependent respiratory failure. 4. Chronic anemia. 5. Chronic kidney disease with acute kidney injury, gradually improving. 6. Status post spinal cord injury with paraplegia. 7. Status post tracheostomy. 8. Status post gastrostomy 9. Sinus w[place] with juntional escape rhytm 10.S/P hypotension. RECOMMENDATIONS: 1. Continue long-term ventilator support. 2. Continue antibiotics as per infectious disease sap basis consultant. 3. Continue hydration. 4. Continue G-tube feedings. 5. Continue DVT prophylaxis and GI prophylaxis. 6. Avoid AV blockers due to junctional escape rhythm and Wenckebach - no Therapy necessary 7. Off pressors and EF is normal Subjective 24 Hr Interval Summary Free Text/Dictation The aptient with diane zavala Exam/Review of Systems Vital Signs Vitals Vital Signs Date Time Temp Pulse Resp B/P Pulse Ox O2 Delivery O2 Flow Rate FiO2 03/07/16 16:52 84 25 100 03/07/16 15:06 98.2 111/70 03/07/16 05:57 40 03/04/16 20:00 Mechanical Ventilator Intake and Output 03/06/16 03/06/16 03/07/16 15:00 23:00 07:00 Intake Total 1800 ml 740 ml Output Total 3000 ml 1200 ml Balance -1200 ml -460 ml Results Result Diagram: 03/07/16 0546 03/07/16 0546 Results 24 hrs Laboratory Tests Test 03/07/16 05:46 Anion Gap 18 H Basophils # 0.0 Basophils % 0.0 Blood Urea Nitrogen 39 H Calcium Level 8.3 L Carbon Dioxide Level 22 Chloride Level 112 H Creatinine 1.64 H Eosinophils # 0.1 Eosinophils % 0.8 Glucose Level 104 Hematocrit 25.5 L Hemoglobin 8.7 L Lymphocytes # 0.4 L Lymphocytes % 6.4 L Mean Corpuscular Hemoglobin 30.4 Mean Corpuscular Hemoglobin Concent 34.0 Mean Corpuscular Volume 89.3 Mean Platelet Volume 9.4 Monocytes # 0.5 Monocytes % 7.6 Neutrophils # 5.8 Neutrophils % 85.2 H Nucleated Red Blood Cells # 0.0 Nucleated Red Blood Cells % 0.0 Platelet Count 185 Potassium Level 4.8 Red Blood Count 2.85 L Red Cell Distribution Width 13.5 Sodium Level 147 H White Blood Count 6.8 Medications Medications Current Medications Ondansetron HCl (Zofran Inj) 4 mg Q6H PRN IV NAUSEA AND/OR VOMITING Last administered on 02/27/16 12:46; Admin Dose 4 MG; Start 02/24/16 at 07:00 Acetaminophen (Tylenol Tab) 650 mg Q6H PRN PO PAIN LEVEL 1-3 OR FEVER Last administered on 02/25/16 08:41; Admin Dose 650 MG; Start 02/24/16 at 07:00 Morphine Sulfate (morphine) 2 mg Q4H PRN IV PAIN LEVEL 7-10 Last administered on 03/07/16 12:53; Admin Dose 2 MG; Start 02/24/16 at 07:00 Escitalopram Oxalate (Lexapro) 10 mg DAILY PO Last administered on 03/07/16 08 :56; Admin Dose 10 MG; Start 02/24/16 at 09:00 Magnesium Hydroxide (Milk Of Mag) 30 ml DAILY PRN PO CONSTIPATION; Start at 07:00 Multivitamins Therapeutic (Theragran) 1 tab DAILY PO Last administered on 08:56; Admin Dose 1 TAB; Start 02/24/16 at 09:00 Polyethylene Glycol (Miralax) 17 gm QHS PO Last administered on 03/06/16 20:02 ; Admin Dose 17 GM; Start 02/24/16 at 21:00 Risperidone (Risperdal) 0.5 mg BID PO Last administered on 03/07/16 08:56; Admin Dose 0.5 MG; Start 02/24/16 at 09:00 Hydromorphone HCl (Dilaudid) 0.5 mg Q6H PRN IV pain Last administered on 16:13; Admin Dose 0.5 MG; Start 02/24/16 at 16:00 Acetaminophen/ Hydrocodone Bitart ([place] (5/325)) 1 tab Q4H PRN GTB pain Last administered on 03/07/16 05:59; Admin Dose 1 TAB; Start 02/25/16 at 12:00 Zinc Sulfate (Zinc Sulfate) 220 mg DAILY GTB Last administered on 03/07/16 08: 55; Admin Dose 220 MG; Start 02/26/16 at 09:00 IV Flush (NS 10 ml) 10 ml PRN PRN IV IV PROTOCOL; Start 02/25/16 at 15:30 Mupirocin (Bactroban) 1 applic BID TOP Last administered on 03/07/16 08:56; Admin Dose 1 APPLIC; Start 02/26/16 at 18:30 Dextrose (D50w Syringe) 50 ml PRN PRN IV DECREASED GLUCOSE Last administered on 02/27/16 07:21; Admin Dose 50 ML; Start 02/27/16 at 07:00 Glycopyrrolate (Robinul) 1 mg TID GTB Last administered on 03/07/16 12:53; Admin Dose 1 MG; Start 02/27/16 at 13:00 Pantoprazole 40 mg 40 mg DAILY@06 IV Last administered on 03/07/16 05:22; Admin Dose 40 MG; Start 02/28/16 at 06:00 Meropenem/Sodium Chloride (Merrem/NS) 100 ml @ 200 mls/hr Q12 IVPB Last administered on 03/07/16 08:55; Admin Dose 200 MLS/HR; Start 02/27/16 at 21:00 Silver Nitrate (Silver Nitrate Swabs) 1 stick BID TOP Last administered on 03/07 08:58; Admin Dose 1 STICK; Start 03/01/16 at 10:30 Collagenase 1 applic 1 applic DAILY TOP Last administered on 03/07/16 09:00; Admin Dose 1 APPLIC; Start 03/03/16 at 09:00 Sodium Chloride (1/2 NS) 1,000 ml @ 50 mls/hr Q20H IV Last administered on 21:57; Admin Dose 50 MLS/HR; Start 03/03/16 at 14:30 Lactulose (Enulose) 20 gm Q6 PO Last administered on 03/07/16 12:53; Admin Dose 20 GM; Start 03/07/16 at 00:00 YIN RUSH MD Mar 07, 2016 17:18
--- NOTE | 2016-03-07 17:42 | PN ---
Date/Time of Note Date/Time of Note DATE: 03/07/16 TIME: 17:34 Assessment/Plan VTE Prophylaxis VTE Prophylaxis Intervention: SCD's Lines/Catheters IV Catheter Type (from [facility] PICC Line Central line still needed: Yes Urinary Cath still in place: Yes Reason Cath still needed: urinary retention Assessment/Plan Chief Complaint/Hosp Course ASSESSMENT AND PLAN: - Severe sepsis with shock, most likely, secondary to urinary tract infection. Dr. Maciel is following patient in infectious disease consultation. Continue antibiotics per ID. . Continue meropenem for 2 more days per ID recommendations. - Urinary tract infection per urinalysis. - Neurogenic bladder with suprapubic catheter. Status post suprapubic catheter change by Dr. Marquez, urology. - Chronic ventilator dependent respiratory failure. Dr. Ames is following patient in a pulmonology consultation. Continue ventilator support broncho dilators. - Dysphagia with a G-tube. Continue current tube feeding. Aspiration precautions. - Acute renal failure, improved. Patient is followed by Dr. Wright in nephrology consultation. Continue IV fluids. Monitor BUN and creatinine. 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 - Sacral decubitus stage III. Continue offloading, continue current wound care. Continue sequential compression device for deep venous thrombosis prophylaxis and Protonix for peptic ulcer disease prophylaxis. Further recommendations based on clinical course. Plan of care discussed with Dr. Barreto. Problems: Subjective 24 Hr Interval Summary Free Text/Dictation Patient is more awake alert, no fever. Sinus rates with episode of sinus tach heart rate going to 120. Patient tolerates G-tube feeding well. Creatinine is improved but still elevated. Continued on IV fluids and antibiotics. Exam/Review of Systems Vital Signs Vitals Vital Signs Date Time Temp Pulse Resp B/P Pulse Ox O2 Delivery O2 Flow Rate FiO2 03/07/16 17:21 88 03/07/16 16:52 25 100 03/07/16 15:06 98.2 111/70 03/07/16 05:57 40 03/04/16 20:00 Mechanical Ventilator Intake and Output 03/06/16 03/06/16 03/07/16 15:00 23:00 07:00 Intake Total 1800 ml 740 ml Output Total 3000 ml 1200 ml Balance -1200 ml -460 ml Exam GENERAL: A well-developed male, currently is awake, opens eyes in response to verbal stimuli. HEENT: Head is atraumatic, normocephalic, PERRLA. NECK: Patient has a tracheostomy at the base of the neck. CHEST: Scattered rhonchi bilaterally. There are no wheezes or rales noted. HEART: Normal S1, S2. No murmurs, gallops, clicks, rubs noted. ABDOMEN: Round, soft, nondistended. G-tube. EXTREMITIES: Lower extremity was contracted body habitus and muscle wasting, no edema. Pulses present. SKIN: Patient has a sacral decubitus stage III. No rash, petechiae noted. NEUROLOGIC: Patient is awake, opens eyes in response to verbal stimuli. Results Result Diagram: 03/07/16 0546 03/07/16 0546 Results 24 hrs Laboratory Tests Test 03/07/16 05:46 Anion Gap 18 H Basophils # 0.0 Basophils % 0.0 Blood Urea Nitrogen 39 H Calcium Level 8.3 L Carbon Dioxide Level 22 Chloride Level 112 H Creatinine 1.64 H Eosinophils # 0.1 Eosinophils % 0.8 Glucose Level 104 Hematocrit 25.5 L Hemoglobin 8.7 L Lymphocytes # 0.4 L Lymphocytes % 6.4 L Mean Corpuscular Hemoglobin 30.4 Mean Corpuscular Hemoglobin Concent 34.0 Mean Corpuscular Volume 89.3 Mean Platelet Volume 9.4 Monocytes # 0.5 Monocytes % 7.6 Neutrophils # 5.8 Neutrophils % 85.2 H Nucleated Red Blood Cells # 0.0 Nucleated Red Blood Cells % 0.0 Platelet Count 185 Potassium Level 4.8 Red Blood Count 2.85 L Red Cell Distribution Width 13.5 Sodium Level 147 H White Blood Count 6.8 Medications Medications Current Medications Ondansetron HCl (Zofran Inj) 4 mg Q6H PRN IV NAUSEA AND/OR VOMITING Last administered on 02/27/16 12:46; Admin Dose 4 MG; Start 02/24/16 at 07:00 Acetaminophen (Tylenol Tab) 650 mg Q6H PRN PO PAIN LEVEL 1-3 OR FEVER Last administered on 02/25/16 08:41; Admin Dose 650 MG; Start 02/24/16 at 07:00 Morphine Sulfate (morphine) 2 mg Q4H PRN IV PAIN LEVEL 7-10 Last administered on 03/07/16 12:53; Admin Dose 2 MG; Start 02/24/16 at 07:00 Escitalopram Oxalate (Lexapro) 10 mg DAILY PO Last administered on 03/07/16 08 :56; Admin Dose 10 MG; Start 02/24/16 at 09:00 Magnesium Hydroxide (Milk Of Mag) 30 ml DAILY PRN PO CONSTIPATION; Start at 07:00 Multivitamins Therapeutic (Theragran) 1 tab DAILY PO Last administered on 08:56; Admin Dose 1 TAB; Start 02/24/16 at 09:00 Polyethylene Glycol (Miralax) 17 gm QHS PO Last administered on 03/06/16 20:02 ; Admin Dose 17 GM; Start 02/24/16 at 21:00 Risperidone (Risperdal) 0.5 mg BID PO Last administered on 03/07/16 08:56; Admin Dose 0.5 MG; Start 02/24/16 at 09:00 Hydromorphone HCl (Dilaudid) 0.5 mg Q6H PRN IV pain Last administered on 16:13; Admin Dose 0.5 MG; Start 02/24/16 at 16:00 Acetaminophen/ Hydrocodone Bitart ([place] (5/325)) 1 tab Q4H PRN GTB pain Last administered on 03/07/16 05:59; Admin Dose 1 TAB; Start 02/25/16 at 12:00 Zinc Sulfate (Zinc Sulfate) 220 mg DAILY GTB Last administered on 03/07/16 08: 55; Admin Dose 220 MG; Start 02/26/16 at 09:00 IV Flush (NS 10 ml) 10 ml PRN PRN IV IV PROTOCOL; Start 02/25/16 at 15:30 Mupirocin (Bactroban) 1 applic BID TOP Last administered on 03/07/16 08:56; Admin Dose 1 APPLIC; Start 02/26/16 at 18:30 Dextrose (D50w Syringe) 50 ml PRN PRN IV DECREASED GLUCOSE Last administered on 02/27/16 07:21; Admin Dose 50 ML; Start 02/27/16 at 07:00 Glycopyrrolate (Robinul) 1 mg TID GTB Last administered on 03/07/16 12:53; Admin Dose 1 MG; Start 02/27/16 at 13:00 Pantoprazole 40 mg 40 mg DAILY@06 IV Last administered on 03/07/16 05:22; Admin Dose 40 MG; Start 02/28/16 at 06:00 Meropenem/Sodium Chloride (Merrem/NS) 100 ml @ 200 mls/hr Q12 IVPB Last administered on 03/07/16 08:55; Admin Dose 200 MLS/HR; Start 02/27/16 at 21:00 Silver Nitrate (Silver Nitrate Swabs) 1 stick BID TOP Last administered on 03/07 08:58; Admin Dose 1 STICK; Start 03/01/16 at 10:30 Collagenase 1 applic 1 applic DAILY TOP Last administered on 03/07/16 09:00; Admin Dose 1 APPLIC; Start 03/03/16 at 09:00 Sodium Chloride (1/2 NS) 1,000 ml @ 50 mls/hr Q20H IV Last administered on 21:57; Admin Dose 50 MLS/HR; Start 03/03/16 at 14:30 Lactulose (Enulose) 20 gm Q6 PO Last administered on 03/07/16 12:53; Admin Dose 20 GM; Start 03/07/16 at 00:00 AISSATOU DUNCAN Mar 07, 2016 17:42
[2016-03-07] MEDS: SOD CHLORIDE 0.45% 1,000 ML IV SCH (18:32)
--- NOTE | 2016-03-07 18:44 | PN ---
DATE: 03/07/2016 SUBJECTIVE: The patient is resting comfortably. He is awake, responsive. He is breathing with apollo tilator support without showing any signs of respiratory distress. PHYSICAL EXAMINATION: VITAL SIGNS: Stable. No fever spikes. Temperature 98.2 this afternoon. Blood pressure is 111/70, pulse rate is 96, respirations 18, pulse oximetry 97% saturation. NECK: Tracheal secretions are clear. No bleeding is seen. HEART: Regular rhythm. CHEST: Breath sounds are heard bilaterally, diminished in both the lower lung tierney with a few int ermittent rales and rhonchi. ABDOMEN: Soft. Tolerating gastrostomy tube feedings. Bowel sounds are present. He has had no vom iting. EXTREMITIES: No edema. NEUROLOGIC: He is paraplegic. LABORATORY TESTS FROM TODAY: Sodium 147, potassium 4.8, bicarbonate of 22, glucose is 104, BUN 39, creatinine 1.64. BUN has slightly increased, but the creatinine has slightly decreased. The CBC sh ows a WBC 6800, hemoglobin 8.7, hematocrit 25.5, platelets within normal limits. ASSESSMENT AND PLAN: 1. Resolving urosepsis. 2. Chronic respiratory failure, ventilator dependent. 3. Chronic anemia. 4. Chronic kidney disease with acute kidney injury, improving. 5. Status post paraplegia secondary to spinal cord injury. 6. Status post tracheostomy. 7. Status post gastrostomy. RECOMMENDATIONS: 1. Continue long-term ventilator support. 2. Continue antibiotics as prescribed by infectious disease business analysis consultant. 3. Continue G-tube feedings. 4. Continue deep vein thrombosis prophylaxis and gastrointestinal prophylaxis. Dictated By: HMUBERTO PEREZ MD, SR/QUE Conf#: [id number] DID#: [id number]
[2016-03-07] MEDS: POLYETHYLENE GLYCOL 17 GM PACKET PO SCH (21:06)
--- NOTE | 2016-03-07 22:01 | PN ---
DATE: Patient has no complaints. OBJECTIVE: GENERAL: He is alert, status post tracheostomy. ABDOMEN: Appears soft and he is tolerating the tube feeding. CLINICAL IMPRESSION: Status post G-tube change and he is tolerating the G-tube feeding. PLAN: Recommend continue to use the G-tube for feeding. Dictated By: GIANLUCA DELAROSA/QUE Conf#: [id number] DID#: [id number]
[2016-03-07] MEDS: ZOLPIDEM 5 MG TAB PO PRN (22:23)
[2016-03-08] VITALS (25 sets, daily range): BP systolic 108–122; BP diastolic 64–73; PULSE 66–90; RESP 14–23
[2016-03-08] MEDS: LACTULOSE 30ML CUP PO SCH ×5 (05:25→23:49)
[2016-03-08] MEDS: PANTOPRAZOLE 40 MG INJ IV SCH (05:25)
[2016-03-08] MEDS: morphine 2 MG INJ IV PRN ×3 (06:16→17:32)
[2016-03-08 08:21] LABS: BASOPHILS % 0.1 % (0.0-2.0); EOSINOPHILS # 0.2 10^3/ul (0.0-0.5); HEMATOCRIT 25.3 % (42.0-52.0); HEMOGLOBIN 8.3 g/dl (14.0-18.0); LYMPHOCYTES # 0.6 10^3/ul (0.8-2.9); LYMPHOCYTES % 10.5 % (15.0-51.0); MEAN CORPUSCULAR HEMOGLOBIN 30.1 pg (29.0-33.0); MEAN CORPUSCULAR HGB CONC 32.9 g/dl (32.0-37.0); MEAN CORPUSCULAR VOLUME 91.4 fl (82.0-101.0); MEAN PLATELET VOLUME 9.6 fl (7.4-10.4); MONOCYTE # 0.6 10^3/ul (0.3-0.9); MONOCYTES % 10.8 % (0.0-11.0); NEUTROPHIL # 4.2 10^3/ul (1.6-7.5); NEUTROPHILS % 75.6 % (39.0-77.0); PLATELET COUNT 195 10^3/UL (140-440); RED BLOOD COUNT 2.76 10^6/ul (4.70-6.10); RED CELL DISTRIBUTION WIDTH 14.1 % (11.5-14.5); UNCORRECTED WBC 5.6 10^3/ul (4.8-10.8); WHITE BLOOD COUNT 5.6 10^3/ul (4.8-10.8)
[2016-03-08 08:27] LABS: POTASSIUM 5.2 mmol/L (3.5-5.1)
[2016-03-08 08:30] LABS: CALCIUM 8.3 mg/dl (8.4-10.2); CREATININE 1.51 mg/dl (0.61-1.24)
[2016-03-08 08:47] LABS: CONDITION 1
[2016-03-08] MEDS: ESCITALOPRAM 10 MG TAB PO SCH (08:51)
[2016-03-08] MEDS: GLYCOPYRROLATE 1 MG TAB GTB SCH ×3 (08:51→21:09)
[2016-03-08] MEDS: RISPERIDONE 0.25 MG TAB PO SCH ×2 (08:52→21:09)
[2016-03-08] MEDS: ZINC SULFATE 220 MG CAP GTB SCH (08:52)
[2016-03-08] MEDS: MULTIVITAMINS THERAPEUTIC TAB PO SCH (08:52)
[2016-03-08] MEDS: HYDROmorphONE 1 MG/ML SYG IV PRN ×3 (08:53→21:04)
[2016-03-08] MEDS: SILVER NITRATE SWAB TOP SCH ×2 (08:53→21:09)
[2016-03-08] MEDS: MUPIROCIN 2% 22 GM OINT TOP SCH ×2 (08:54→21:09)
[2016-03-08] MEDS: COLLAGENASE 30 GM TUBE TOP SCH (08:54)
[2016-03-08] MEDS: MEROPENEM 500 MG in SOD CHLORIDE 0.9% 100 ML IVPB SCH (08:55)
--- NOTE | 2016-03-08 11:58 | CONS ---
Date/Time of Note Date/Time of Note DATE: 03/08/16 TIME: 11:56 Assessment/Plan Assessment/Plan Chief Complaint/Hosp Course SUBJECTIVE: No acute events, alert, nad, no fevers INDWELLINGS: Trach, PEG, suprapubic catheter, PICC line placed on 02/25/2016 ANTIMICROBIALS: 1. Merrem. ASSESSMENT: 1. S/p sepsis secondary to urinary tract infection. 2. Staph bacteremia==> cw contaminated specimen. 3. Methicillin-resistant Staphylococcus aureus nares colonization. 4. Neurogenic bladder==> s/p suprapubic catheter changed. 5. History of C-spine injury with quadriplegia. 6. Chronic respiratory failure 7. A/CKD==> kidney US + multiple cysts 8. Hx R nephrectomy PLAN: Remains stable, repeat urine cx negative, will dc abx and observe. DW staff Problems: Consultation Date/Type/Reason Admit Date/Time Feb 24, 2016 at 05:06 Type of Consultation: id Referring Provider: JOSÉ ANTONIO MIRZA MD Exam/Review of Systems Vital Signs Vitals Vital Signs Date Time Temp Pulse Resp B/P Pulse Ox O2 Delivery O2 Flow Rate FiO2 03/08/16 11:41 65 20 99 40 03/08/16 11:02 97.8 114/64 03/04/16 20:00 Mechanical Ventilator Intake and Output 03/07/16 03/07/16 03/08/16 15:00 23:00 07:00 Intake Total 2060 ml 780 ml Output Total 1400 ml 900 ml Balance 660 ml -120 ml Results Result Diagram: 03/08/16 0700 03/08/16 0700 Results 24 hrs Laboratory Tests Test 03/08/16 07:00 Anion Gap 14 Basophils # 0.0 Basophils % 0.1 Blood Urea Nitrogen 40 H Calcium Level 8.3 L Carbon Dioxide Level 24 Chloride Level 107 Creatinine 1.51 H Eosinophils # 0.2 Eosinophils % 3.0 Glucose Level 88 Hematocrit 25.3 L Hemoglobin 8.3 L Lymphocytes # 0.6 L Lymphocytes % 10.5 L Mean Corpuscular Hemoglobin 30.1 Mean Corpuscular Hemoglobin Concent 32.9 Mean Corpuscular Volume 91.4 Mean Platelet Volume 9.6 Monocytes # 0.6 Monocytes % 10.8 Neutrophils # 4.2 Neutrophils % 75.6 Nucleated Red Blood Cells # 0.0 Nucleated Red Blood Cells % 0.0 Platelet Count 195 Potassium Level 5.2 H Red Blood Count 2.76 L Red Cell Distribution Width 14.1 Sodium Level 140 White Blood Count 5.6 Medications Medications Current Medications Ondansetron HCl (Zofran Inj) 4 mg Q6H PRN IV NAUSEA AND/OR VOMITING Last administered on 02/27/16 12:46; Admin Dose 4 MG; Start 02/24/16 at 07:00 Acetaminophen (Tylenol Tab) 650 mg Q6H PRN PO PAIN LEVEL 1-3 OR FEVER Last administered on 02/25/16 08:41; Admin Dose 650 MG; Start 02/24/16 at 07:00 Morphine Sulfate (morphine) 2 mg Q4H PRN IV PAIN LEVEL 7-10 Last administered on 03/08/16 11:43; Admin Dose 2 MG; Start 02/24/16 at 07:00 Escitalopram Oxalate (Lexapro) 10 mg DAILY PO Last administered on 03/08/16 08 :51; Admin Dose 10 MG; Start 02/24/16 at 09:00 Magnesium Hydroxide (Milk Of Mag) 30 ml DAILY PRN PO CONSTIPATION; Start at 07:00 Multivitamins Therapeutic (Theragran) 1 tab DAILY PO Last administered on 08:52; Admin Dose 1 TAB; Start 02/24/16 at 09:00 Polyethylene Glycol (Miralax) 17 gm QHS PO Last administered on 03/07/16 21:06 ; Admin Dose 17 GM; Start 02/24/16 at 21:00 Risperidone (Risperdal) 0.5 mg BID PO Last administered on 03/08/16 08:52; Admin Dose 0.5 MG; Start 02/24/16 at 09:00 Hydromorphone HCl (Dilaudid) 0.5 mg Q6H PRN IV pain Last administered on 08:53; Admin Dose 0.5 MG; Start 02/24/16 at 16:00 Acetaminophen/ Hydrocodone Bitart ([place] (5/325)) 1 tab Q4H PRN GTB pain Last administered on 03/07/16 05:59; Admin Dose 1 TAB; Start 02/25/16 at 12:00 Zinc Sulfate (Zinc Sulfate) 220 mg DAILY GTB Last administered on 03/08/16 08: 52; Admin Dose 220 MG; Start 02/26/16 at 09:00 IV Flush (NS 10 ml) 10 ml PRN PRN IV IV PROTOCOL; Start 02/25/16 at 15:30 Mupirocin (Bactroban) 1 applic BID TOP Last administered on 03/08/16 08:54; Admin Dose 1 APPLIC; Start 02/26/16 at 18:30 Dextrose (D50w Syringe) 50 ml PRN PRN IV DECREASED GLUCOSE Last administered on 02/27/16 07:21; Admin Dose 50 ML; Start 02/27/16 at 07:00 Glycopyrrolate (Robinul) 1 mg TID GTB Last administered on 03/08/16 08:51; Admin Dose 1 MG; Start 02/27/16 at 13:00 Pantoprazole 40 mg 40 mg DAILY@06 IV Last administered on 03/08/16 05:25; Admin Dose 40 MG; Start 02/28/16 at 06:00 Meropenem/Sodium Chloride (Merrem/NS) 100 ml @ 200 mls/hr Q12 IVPB Last administered on 03/08/16 08:55; Admin Dose 200 MLS/HR; Start 02/27/16 at 21:00 Silver Nitrate (Silver Nitrate Swabs) 1 stick BID TOP Last administered on 03/08 08:53; Admin Dose 1 STICK; Start 03/01/16 at 10:30 Collagenase 1 applic 1 applic DAILY TOP Last administered on 03/08/16 08:54; Admin Dose 1 APPLIC; Start 03/03/16 at 09:00 Sodium Chloride (1/2 NS) 1,000 ml @ 50 mls/hr Q20H IV Last administered on 18:32; Admin Dose 50 MLS/HR; Start 03/03/16 at 14:30 Lactulose (Enulose) 20 gm Q6 PO Last administered on 03/08/16 05:25; Admin Dose 20 GM; Start 03/07/16 at 00:00 REGINALDO CHERY NP Mar 08, 2016 11:58
[2016-03-08] MEDS ORDERED: NA POLYST SULFON 15 GM/60 ML BTL GTB ONE (12:30)
[2016-03-08] MEDS: SOD CHLORIDE 0.45% 1,000 ML IV SCH (14:57)
--- NOTE | 2016-03-08 15:59 | PN ---
DATE: 03/08/2016 SUBJECTIVE: The patient is resting comfortably. He is on ventilator support continuously through t racheostomy. His breathing appears unlabored. According to nursing staff, he has not had any episo cherrie of desaturation, mild shortness of breath. PHYSICAL EXAMINATION: VITAL SIGNS: Stable. Temperature 97.8, blood pressure is 114/54, pulse rate is 78, respirations 22 , pulse oximetry between 97% saturation. Tracheal secretions are clear with no bleeding is seen. HEART: Regular rhythm. CHEST: Breath sounds are diminished in the lower lung tierney at the bases, but otherwise clear. ABDOMEN: Soft, tolerating gastrostomy tube feedings. Bowel sounds are normally heard. EXTREMITIES: Show no edema. He is paraplegic. LABORATORY DATA: Show sodium 140, potassium 5.2, bicarbonate 24, BUN 40, creatinine 1.51, glucose 8 8. He has been given Kayexalate to correct the hyperkalemia. The CBC shows a WBC of 5600, hemoglob in 8.3, hematocrit 25.3, platelets are within normal limits. ASSESSMENT AND PLAN: 1. Resolved urosepsis. 2. Chronic respiratory failure, ventilator dependent. 3. Chronic anemia. 4. Chronic kidney disease with acute kidney injury, improving. 5. Status post paraplegia secondary to spinal cord injury. 6. Status post catheterization. 7. . RECOMMENDATIONS: 1. Continue long-term and principal. 2. Antibiotics prescribed as per the infectious disease direct response consultant. 3. Continue G tube feedings. 4. Continue deep venous thrombosis prophylaxis and gastroenterology prophylaxis. Dictated By: HUMBERTO PEREZ MD SR/QUE Conf#: [id number] DID#: [id number]
--- NOTE | 2016-03-08 17:00 | CONS ---
Date/Time of Note Date/Time of Note DATE: 03/08/16 TIME: 16:59 Assessment/Plan Assessment/Plan Chief Complaint/Hosp Course IMPRESSION: The patient has: 1. Acute kidney injury.better 2. Sepsis. 3. Underlying prerenal azotemia. 4. Underlying acute tubular necrosis due to sepsis. 5. Anion gap metabolic acidosis. 6. res failure 7. Leukocytosis. 8. Anemia. 9. Urinary tract infection. 10. peg 11. Paraplegia. 12. Respiratory failure and tracheostomy. 13 hyperkalemia plan iv fluid ck labs renal stable karyn Problems: Consultation Date/Type/Reason Admit Date/Time Feb 24, 2016 at 05:06 Type of Consultation: RENAL Referring Provider: JOSÉ ANTONIO MIRZA MD 24 HR Interval Summary Constitutional: no complaints Exam/Review of Systems Vital Signs Vitals Vital Signs Date Time Temp Pulse Resp B/P Pulse Ox O2 Delivery O2 Flow Rate FiO2 03/08/16 15:14 98.1 70 18 112/71 99 03/08/16 13:43 40 03/04/16 20:00 Mechanical Ventilator Intake and Output 03/07/16 03/07/16 03/08/16 15:00 23:00 07:00 Intake Total 2060 ml 780 ml Output Total 1400 ml 900 ml Balance 660 ml -120 ml Exam Neck: supple Respiratory: clear to auscultation Cardiovascular: regular rate and rhythm Gastrointestinal: soft Musculoskeletal: nl extremities to inspection Results Result Diagram: 03/08/16 0700 03/08/16 0700 Results 24 hrs Laboratory Tests Test 03/08/16 07:00 Anion Gap 14 Basophils # 0.0 Basophils % 0.1 Blood Urea Nitrogen 40 H Calcium Level 8.3 L Carbon Dioxide Level 24 Chloride Level 107 Creatinine 1.51 H Eosinophils # 0.2 Eosinophils % 3.0 Glucose Level 88 Hematocrit 25.3 L Hemoglobin 8.3 L Lymphocytes # 0.6 L Lymphocytes % 10.5 L Mean Corpuscular Hemoglobin 30.1 Mean Corpuscular Hemoglobin Concent 32.9 Mean Corpuscular Volume 91.4 Mean Platelet Volume 9.6 Monocytes # 0.6 Monocytes % 10.8 Neutrophils # 4.2 Neutrophils % 75.6 Nucleated Red Blood Cells # 0.0 Nucleated Red Blood Cells % 0.0 Platelet Count 195 Potassium Level 5.2 H Red Blood Count 2.76 L Red Cell Distribution Width 14.1 Sodium Level 140 White Blood Count 5.6 Medications Medications Current Medications Ondansetron HCl (Zofran Inj) 4 mg Q6H PRN IV NAUSEA AND/OR VOMITING Last administered on 02/27/16 12:46; Admin Dose 4 MG; Start 02/24/16 at 07:00 Acetaminophen (Tylenol Tab) 650 mg Q6H PRN PO PAIN LEVEL 1-3 OR FEVER Last administered on 02/25/16 08:41; Admin Dose 650 MG; Start 02/24/16 at 07:00 Morphine Sulfate (morphine) 2 mg Q4H PRN IV PAIN LEVEL 7-10 Last administered on 03/08/16 11:43; Admin Dose 2 MG; Start 02/24/16 at 07:00 Escitalopram Oxalate (Lexapro) 10 mg DAILY PO Last administered on 03/08/16 08 :51; Admin Dose 10 MG; Start 02/24/16 at 09:00 Magnesium Hydroxide (Milk Of Mag) 30 ml DAILY PRN PO CONSTIPATION; Start at 07:00 Multivitamins Therapeutic (Theragran) 1 tab DAILY PO Last administered on 08:52; Admin Dose 1 TAB; Start 02/24/16 at 09:00 Polyethylene Glycol (Miralax) 17 gm QHS PO Last administered on 03/07/16 21:06 ; Admin Dose 17 GM; Start 02/24/16 at 21:00 Risperidone (Risperdal) 0.5 mg BID PO Last administered on 03/08/16 08:52; Admin Dose 0.5 MG; Start 02/24/16 at 09:00 Hydromorphone HCl (Dilaudid) 0.5 mg Q6H PRN IV pain Last administered on 14:57; Admin Dose 0.5 MG; Start 02/24/16 at 16:00 Acetaminophen/ Hydrocodone Bitart ([place] (5/325)) 1 tab Q4H PRN GTB pain Last administered on 03/07/16 05:59; Admin Dose 1 TAB; Start 02/25/16 at 12:00 Zinc Sulfate (Zinc Sulfate) 220 mg DAILY GTB Last administered on 03/08/16 08: 52; Admin Dose 220 MG; Start 02/26/16 at 09:00 IV Flush (NS 10 ml) 10 ml PRN PRN IV IV PROTOCOL; Start 02/25/16 at 15:30 Mupirocin (Bactroban) 1 applic BID TOP Last administered on 03/08/16 08:54; Admin Dose 1 APPLIC; Start 02/26/16 at 18:30 Dextrose (D50w Syringe) 50 ml PRN PRN IV DECREASED GLUCOSE Last administered on 02/27/16 07:21; Admin Dose 50 ML; Start 02/27/16 at 07:00 Glycopyrrolate (Robinul) 1 mg TID GTB Last administered on 03/08/16 12:39; Admin Dose 1 MG; Start 02/27/16 at 13:00 Pantoprazole (Protonix Iv) 40 mg DAILY@06 IV Last administered on 03/08/16 05: 25; Admin Dose 40 MG; Start 02/28/16 at 06:00 Silver Nitrate (Silver Nitrate Swabs) 1 stick BID TOP Last administered on 03/08 08:53; Admin Dose 1 STICK; Start 03/01/16 at 10:30 Collagenase 1 applic 1 applic DAILY TOP Last administered on 03/08/16 08:54; Admin Dose 1 APPLIC; Start 03/03/16 at 09:00 Sodium Chloride (1/2 NS) 1,000 ml @ 50 mls/hr Q20H IV Last administered on 14:57; Admin Dose 50 MLS/HR; Start 03/03/16 at 14:30 Lactulose (Enulose) 20 gm Q6 PO Last administered on 03/08/16 05:25; Admin Dose 20 GM; Start 03/07/16 at 00:00 BRIANDA HIRSCH MD Mar 08, 2016 16:59
--- NOTE | 2016-03-08 18:02 | PN ---
Date/Time of Note Date/Time of Note DATE: 03/08/16 TIME: 18:00 Assessment/Plan VTE Prophylaxis VTE Prophylaxis Intervention: SCD's Lines/Catheters IV Catheter Type (from [facility] PICC Line Central line still needed: Yes Urinary Cath still in place: Yes (SUPRAPUBIC CATHETER) Reason Cath still needed: urinary retention Assessment/Plan Chief Complaint/Hosp Course ASSESSMENT AND PLAN: - Severe sepsis with shock, most likely, secondary to urinary tract infection. Dr. Maciel is following patient in infectious disease consultation. Continue antibiotics per ID. . Continue meropenem for 2 more days per ID recommendations. - Urinary tract infection per urinalysis. - Neurogenic bladder with suprapubic catheter. Status post suprapubic catheter change by Dr. Marquez, urology. - Chronic ventilator dependent respiratory failure. Dr. Ames is following patient in a pulmonology consultation. Continue ventilator support broncho dilators. - Dysphagia with a G-tube. Continue current tube feeding. Aspiration precautions. - Acute renal failure, improved. Patient is followed by Dr. Wright in nephrology consultation. Continue IV fluids. Monitor BUN and creatinine. 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 - Sacral decubitus stage III. Continue offloading, continue current wound care. Continue sequential compression device for deep venous thrombosis prophylaxis and Protonix for peptic ulcer disease prophylaxis. Further recommendations based on clinical course. Plan of care discussed with Dr. Barreto. Problems: Subjective 24 Hr Interval Summary Free Text/Dictation RN just called me due to patient had nonbloody emesis large amount, will stop tube feeding, Zofran for nausea, hold discharge for now, CBC BMP and chest x- ray tomorrow. Exam/Review of Systems Vital Signs Vitals Vital Signs Date Time Temp Pulse Resp B/P Pulse Ox O2 Delivery O2 Flow Rate FiO2 03/08/16 17:02 90 03/08/16 17:01 20 96 40 03/08/16 15:14 98.1 112/71 03/04/16 20:00 Mechanical Ventilator Intake and Output 03/07/16 03/07/16 03/08/16 15:00 23:00 07:00 Intake Total 2060 ml 780 ml Output Total 1400 ml 900 ml Balance 660 ml -120 ml Exam GENERAL: A well-developed male, currently is awake, opens eyes in response to verbal stimuli. HEENT: Head is atraumatic, normocephalic, PERRLA. NECK: Patient has a tracheostomy at the base of the neck. CHEST: Scattered rhonchi bilaterally. There are no wheezes or rales noted. HEART: Normal S1, S2. No murmurs, gallops, clicks, rubs noted. ABDOMEN: Round, soft, nondistended. G-tube. EXTREMITIES: Lower extremity was contracted body habitus and muscle wasting, no edema. Pulses present. SKIN: Patient has a sacral decubitus stage III. No rash, petechiae noted. NEUROLOGIC: Patient is awake, opens eyes in response to verbal stimuli. Results Result Diagram: 03/08/16 0700 03/08/16 0700 Results 24 hrs Laboratory Tests Test 03/08/16 07:00 Anion Gap 14 Basophils # 0.0 Basophils % 0.1 Blood Urea Nitrogen 40 H Calcium Level 8.3 L Carbon Dioxide Level 24 Chloride Level 107 Creatinine 1.51 H Eosinophils # 0.2 Eosinophils % 3.0 Glucose Level 88 Hematocrit 25.3 L Hemoglobin 8.3 L Lymphocytes # 0.6 L Lymphocytes % 10.5 L Mean Corpuscular Hemoglobin 30.1 Mean Corpuscular Hemoglobin Concent 32.9 Mean Corpuscular Volume 91.4 Mean Platelet Volume 9.6 Monocytes # 0.6 Monocytes % 10.8 Neutrophils # 4.2 Neutrophils % 75.6 Nucleated Red Blood Cells # 0.0 Nucleated Red Blood Cells % 0.0 Platelet Count 195 Potassium Level 5.2 H Red Blood Count 2.76 L Red Cell Distribution Width 14.1 Sodium Level 140 White Blood Count 5.6 Medications Medications Current Medications Ondansetron HCl (Zofran Inj) 4 mg Q6H PRN IV NAUSEA AND/OR VOMITING Last administered on 02/27/16 12:46; Admin Dose 4 MG; Start 02/24/16 at 07:00 Acetaminophen (Tylenol Tab) 650 mg Q6H PRN PO PAIN LEVEL 1-3 OR FEVER Last administered on 02/25/16 08:41; Admin Dose 650 MG; Start 02/24/16 at 07:00 Morphine Sulfate (morphine) 2 mg Q4H PRN IV PAIN LEVEL 7-10 Last administered on 03/08/16 17:32; Admin Dose 2 MG; Start 02/24/16 at 07:00 Escitalopram Oxalate (Lexapro) 10 mg DAILY PO Last administered on 03/08/16 08 :51; Admin Dose 10 MG; Start 02/24/16 at 09:00 Magnesium Hydroxide (Milk Of Mag) 30 ml DAILY PRN PO CONSTIPATION; Start at 07:00 Multivitamins Therapeutic (Theragran) 1 tab DAILY PO Last administered on 08:52; Admin Dose 1 TAB; Start 02/24/16 at 09:00 Polyethylene Glycol (Miralax) 17 gm QHS PO Last administered on 03/07/16 21:06 ; Admin Dose 17 GM; Start 02/24/16 at 21:00 Risperidone (Risperdal) 0.5 mg BID PO Last administered on 03/08/16 08:52; Admin Dose 0.5 MG; Start 02/24/16 at 09:00 Hydromorphone HCl (Dilaudid) 0.5 mg Q6H PRN IV pain Last administered on 14:57; Admin Dose 0.5 MG; Start 02/24/16 at 16:00 Acetaminophen/ Hydrocodone Bitart ([place] (5/325)) 1 tab Q4H PRN GTB pain Last administered on 03/07/16 05:59; Admin Dose 1 TAB; Start 02/25/16 at 12:00 Zinc Sulfate (Zinc Sulfate) 220 mg DAILY GTB Last administered on 03/08/16 08: 52; Admin Dose 220 MG; Start 02/26/16 at 09:00 IV Flush (NS 10 ml) 10 ml PRN PRN IV IV PROTOCOL; Start 02/25/16 at 15:30 Mupirocin (Bactroban) 1 applic BID TOP Last administered on 03/08/16 08:54; Admin Dose 1 APPLIC; Start 02/26/16 at 18:30 Dextrose (D50w Syringe) 50 ml PRN PRN IV DECREASED GLUCOSE Last administered on 02/27/16 07:21; Admin Dose 50 ML; Start 02/27/16 at 07:00 Glycopyrrolate (Robinul) 1 mg TID GTB Last administered on 03/08/16 12:39; Admin Dose 1 MG; Start 02/27/16 at 13:00 Pantoprazole (Protonix Iv) 40 mg DAILY@06 IV Last administered on 03/08/16 05: 25; Admin Dose 40 MG; Start 02/28/16 at 06:00 Silver Nitrate (Silver Nitrate Swabs) 1 stick BID TOP Last administered on 03/08 08:53; Admin Dose 1 STICK; Start 03/01/16 at 10:30 Collagenase 1 applic 1 applic DAILY TOP Last administered on 03/08/16 08:54; Admin Dose 1 APPLIC; Start 03/03/16 at 09:00 Sodium Chloride (1/2 NS) 1,000 ml @ 50 mls/hr Q20H IV Last administered on 14:57; Admin Dose 50 MLS/HR; Start 03/03/16 at 14:30 Lactulose (Enulose) 20 gm Q6 PO Last administered on 03/08/16 05:25; Admin Dose 20 GM; Start 03/07/16 at 00:00 AISSATOU DUNCAN Mar 08, 2016 18:02
[2016-03-08] MEDS: ONDANSETRON 4 MG INJ IV PRN (18:13)
--- NOTE | 2016-03-08 21:05 | CONS ---
Date/Time of Note Date/Time of Note DATE: 03/08/16 TIME: 21:02 Assessment/Plan Assessment/Plan Additional Assessment/Plan Sepsis Respiratory Failure Preserved EF HTN Intermittent Mobitz I -tele reviewed, no significant arrhythmias past 24 hours. Vent management as per pulmonary. BP currently stable. Consultation Date/Type/Reason Admit Date/Time Feb 24, 2016 at 05:06 Initial Consult Date Type of Consultation: cv Referring Provider: JOSÉ ANTONIO MIRZA MD 24 HR Interval Summary Free Text/Dictation denies sob, palpitations, dizziness Exam/Review of Systems Vital Signs Vitals Vital Signs Date Time Temp Pulse Resp B/P Pulse Ox O2 Delivery O2 Flow Rate FiO2 03/08/16 20:50 88 03/08/16 20:24 98.1 20 109/70 97 03/08/16 17:01 40 03/04/16 20:00 Mechanical Ventilator Intake and Output 03/07/16 03/07/16 03/08/16 15:00 23:00 07:00 Intake Total 2060 ml 780 ml Output Total 1400 ml 900 ml Balance 660 ml -120 ml Exam follows commands, nad Constitutional: alert Head: normocephalic Neck: other (trach) Respiratory: other (course bs, no wheeze) Cardiovascular: other (s1s2), regular rate and rhythm Gastrointestinal: bowel sounds, non-tender, soft Extremities: edema (tr) Results Result Diagram: 03/08/16 0700 03/08/16 0700 Results 24 hrs Laboratory Tests Test 03/08/16 07:00 Anion Gap 14 Basophils # 0.0 Basophils % 0.1 Blood Urea Nitrogen 40 H Calcium Level 8.3 L Carbon Dioxide Level 24 Chloride Level 107 Creatinine 1.51 H Eosinophils # 0.2 Eosinophils % 3.0 Glucose Level 88 Hematocrit 25.3 L Hemoglobin 8.3 L Lymphocytes # 0.6 L Lymphocytes % 10.5 L Mean Corpuscular Hemoglobin 30.1 Mean Corpuscular Hemoglobin Concent 32.9 Mean Corpuscular Volume 91.4 Mean Platelet Volume 9.6 Monocytes # 0.6 Monocytes % 10.8 Neutrophils # 4.2 Neutrophils % 75.6 Nucleated Red Blood Cells # 0.0 Nucleated Red Blood Cells % 0.0 Platelet Count 195 Potassium Level 5.2 H Red Blood Count 2.76 L Red Cell Distribution Width 14.1 Sodium Level 140 White Blood Count 5.6 Medications Medications Current Medications Ondansetron HCl (Zofran Inj) 4 mg Q6H PRN IV NAUSEA AND/OR VOMITING Last administered on 03/08/16 18:13; Admin Dose 4 MG; Start 02/24/16 at 07:00 Acetaminophen (Tylenol Tab) 650 mg Q6H PRN PO PAIN LEVEL 1-3 OR FEVER Last administered on 02/25/16 08:41; Admin Dose 650 MG; Start 02/24/16 at 07:00 Morphine Sulfate (morphine) 2 mg Q4H PRN IV PAIN LEVEL 7-10 Last administered on 03/08/16 17:32; Admin Dose 2 MG; Start 02/24/16 at 07:00 Escitalopram Oxalate (Lexapro) 10 mg DAILY PO Last administered on 03/08/16 08 :51; Admin Dose 10 MG; Start 02/24/16 at 09:00 Magnesium Hydroxide (Milk Of Mag) 30 ml DAILY PRN PO CONSTIPATION; Start at 07:00 Multivitamins Therapeutic (Theragran) 1 tab DAILY PO Last administered on 08:52; Admin Dose 1 TAB; Start 02/24/16 at 09:00 Polyethylene Glycol (Miralax) 17 gm QHS PO Last administered on 03/07/16 21:06 ; Admin Dose 17 GM; Start 02/24/16 at 21:00 Risperidone (Risperdal) 0.5 mg BID PO Last administered on 03/08/16 08:52; Admin Dose 0.5 MG; Start 02/24/16 at 09:00 Hydromorphone HCl (Dilaudid) 0.5 mg Q6H PRN IV pain Last administered on 14:57; Admin Dose 0.5 MG; Start 02/24/16 at 16:00 Acetaminophen/ Hydrocodone Bitart ([place] (5/325)) 1 tab Q4H PRN GTB pain Last administered on 03/07/16 05:59; Admin Dose 1 TAB; Start 02/25/16 at 12:00 Zinc Sulfate (Zinc Sulfate) 220 mg DAILY GTB Last administered on 03/08/16 08: 52; Admin Dose 220 MG; Start 02/26/16 at 09:00 IV Flush (NS 10 ml) 10 ml PRN PRN IV IV PROTOCOL; Start 02/25/16 at 15:30 Mupirocin (Bactroban) 1 applic BID TOP Last administered on 03/08/16 08:54; Admin Dose 1 APPLIC; Start 02/26/16 at 18:30 Dextrose (D50w Syringe) 50 ml PRN PRN IV DECREASED GLUCOSE Last administered on 02/27/16 07:21; Admin Dose 50 ML; Start 02/27/16 at 07:00 Glycopyrrolate (Robinul) 1 mg TID GTB Last administered on 03/08/16 12:39; Admin Dose 1 MG; Start 02/27/16 at 13:00 Pantoprazole (Protonix Iv) 40 mg DAILY@06 IV Last administered on 03/08/16 05: 25; Admin Dose 40 MG; Start 02/28/16 at 06:00 Silver Nitrate (Silver Nitrate Swabs) 1 stick BID TOP Last administered on 03/08 08:53; Admin Dose 1 STICK; Start 03/01/16 at 10:30 Collagenase 1 applic 1 applic DAILY TOP Last administered on 03/08/16 08:54; Admin Dose 1 APPLIC; Start 03/03/16 at 09:00 Sodium Chloride (1/2 NS) 1,000 ml @ 50 mls/hr Q20H IV Last administered on 14:57; Admin Dose 50 MLS/HR; Start 03/03/16 at 14:30 Lactulose (Enulose) 20 gm Q6 PO Last administered on 03/08/16 05:25; Admin Dose 20 GM; Start 03/07/16 at 00:00 Deandre Chavez DO Mar 08, 2016 21:05
[2016-03-08] MEDS: POLYETHYLENE GLYCOL 17 GM PACKET PO SCH (21:09)
--- NOTE | 2016-03-08 23:06 | RADRPT ---
PROCEDURE: XR Chest. CLINICAL INDICATION: Shortness of breath. Vomiting. TECHNIQUE: Single frontal view. COMPARISON: 02/25/2016. FINDINGS: The tracheostomy tube and left arm PICC line remain in satisfactory position. Pulmonary edema and b ibasilar atelectasis are unchanged. The heart size is normal. There is no pleural effusion. There is no pneumothorax. IMPRESSION: 1. Tracheostomy tube and left arm PICC line. 2. Unchanged pulmonary edema and left basilar atelectasis. RPTAT: QQ .Cain Castellanos MD, MD Date Time Electronically viewed and signed by .Cain Castellanos MD, MD on 03/08/2016 23:06 .R/
[2016-03-09] VITALS (25 sets, daily range): BP systolic 105–130; BP diastolic 57–76; PULSE 59–105; RESP 14–30
[2016-03-09] MEDS: morphine 2 MG INJ IV PRN ×4 (00:11→20:08)
[2016-03-09] MEDS: PANTOPRAZOLE 40 MG INJ IV SCH (05:14)
[2016-03-09] MEDS: LACTULOSE 30ML CUP PO SCH ×3 (05:14→18:00)
[2016-03-09] MEDS: HYDROmorphONE 1 MG/ML SYG IV PRN ×3 (05:49→18:30)
[2016-03-09 06:21] LABS: BASOPHILS % 0.1 % (0.0-2.0); EOSINOPHILS # 0.2 10^3/ul (0.0-0.5); EOSINOPHILS % 2.7 % (0.0-7.0); HEMATOCRIT 23.8 % (42.0-52.0); HEMOGLOBIN 7.9 g/dl (14.0-18.0); LYMPHOCYTES # 0.6 10^3/ul (0.8-2.9); LYMPHOCYTES % 10.3 % (15.0-51.0); MEAN CORPUSCULAR HEMOGLOBIN 30.5 pg (29.0-33.0); MEAN CORPUSCULAR HGB CONC 33.4 g/dl (32.0-37.0); MEAN CORPUSCULAR VOLUME 91.4 fl (82.0-101.0); MEAN PLATELET VOLUME 9.7 fl (7.4-10.4); MONOCYTE # 0.6 10^3/ul (0.3-0.9); MONOCYTES % 9.9 % (0.0-11.0); NEUTROPHIL # 4.7 10^3/ul (1.6-7.5); PLATELET COUNT 214 10^3/UL (140-440); RED BLOOD COUNT 2.61 10^6/ul (4.70-6.10); RED CELL DISTRIBUTION WIDTH 13.8 % (11.5-14.5); UNCORRECTED WBC 6.1 10^3/ul (4.8-10.8); WHITE BLOOD COUNT 6.1 10^3/ul (4.8-10.8)
[2016-03-09 06:39] LABS: CONDITION 1; LH ANALYZER COMMENTS 1
[2016-03-09 07:02] LABS: POTASSIUM 4.9 mmol/L (3.5-5.1)
[2016-03-09 07:05] LABS: CALCIUM 8.5 mg/dl (8.4-10.2); CREATININE 1.59 mg/dl (0.61-1.24)
[2016-03-09] MEDS: MULTIVITAMINS THERAPEUTIC TAB PO SCH (09:20)
[2016-03-09] MEDS: ESCITALOPRAM 10 MG TAB PO SCH (09:20)
[2016-03-09] MEDS: GLYCOPYRROLATE 1 MG TAB GTB SCH ×3 (09:20→21:29)
[2016-03-09] MEDS: RISPERIDONE 0.25 MG TAB PO SCH ×2 (09:20→21:29)
[2016-03-09] MEDS: ZINC SULFATE 220 MG CAP GTB SCH (09:20)
[2016-03-09] MEDS: MUPIROCIN 2% 22 GM OINT TOP SCH ×2 (09:21→21:30)
[2016-03-09] MEDS: SILVER NITRATE SWAB TOP SCH ×2 (09:22→23:25)
[2016-03-09] MEDS: COLLAGENASE 30 GM TUBE TOP SCH (09:22)
[2016-03-09] MEDS: SOD CHLORIDE 0.45% 1,000 ML IV SCH (10:30)
[2016-03-09] MEDS ORDERED: SOD CHLORIDE 0.9% 250 ML IV* ONE (10:37)
--- NOTE | 2016-03-09 11:57 | CONS ---
Date/Time of Note Date/Time of Note DATE: 03/09/16 TIME: 11:55 Assessment/Plan Assessment/Plan Additional Assessment/Plan Assessment and recommendations; 1. Chronic respiratory failure ventilator dependent with a history of cervical injury resulting in paraplegia with significant weakness involving upper extremities as well. 2. Healthcare associated pneumonia status post antibiotic treatment. 3. UTI clinically resolved now. 4. She currently on assist control mode. Continue current supportive care. Switch ventilator settings to SIMV with a rate of 12, pressure support 10, tidal volume 500, and 30% FiO2. The patient is a good candidate for further weaning from mechanical ventilation. Consultation Date/Type/Reason Admit Date/Time Feb 24, 2016 at 05:06 Initial Consult Date Type of Consultation: cv Referring Provider: JOSÉ ANTONIO MIRZA MD 24 HR Interval Summary Free Text/Dictation Patient condition is stable. Patient is completely awake alert, follows simple commands. Has some degree of hand movements bilaterally. Stable paraplegia. Patient denies any shortness of breath, cough, chest pain, fever. General examination; young male, on mechanical ventilation via tracheostomy currently in no distress awake and alert. Exam/Review of Systems Vital Signs Vitals Vital Signs Date Time Temp Pulse Resp B/P Pulse Ox O2 Delivery O2 Flow Rate FiO2 03/09/16 11:34 98.3 78 18 117/57 97 03/09/16 11:10 40 Intake and Output 03/08/16 03/08/16 03/09/16 15:00 23:00 07:00 Intake Total 2140 ml 1100 ml Output Total 2500 ml 2000 ml Balance -360 ml -900 ml Exam H EENT examination; supple neck, no JVD. No lymphadenopathy. Tracheostomy in place. Pupils are midsize reactive to light. Chest examination; diminished but clear breath sounds bilaterally. S1-S2 audible no murmurs. Regular rate and rhythm. Abdomen examination; soft, scaphoid. PEG tube in place, bowel sounds audible. No organomegaly. Nontender. Extremity examination; no peripheral edema. Patient does have contractures involving lower extremities as well as upper extremities bilaterally. [employer] EXAMINER examination patient has intact cranial nerves. Results Result Diagram: 03/09/16 0550 03/09/16 0550 Results 24 hrs Laboratory Tests Test 03/09/16 05:50 Anion Gap 15 Basophils # 0.0 Basophils % 0.1 Blood Morphology Comment Blood Urea Nitrogen 48 H Calcium Level 8.5 Carbon Dioxide Level 25 Chloride Level 109 Creatinine 1.59 H Eosinophils # 0.2 Eosinophils % 2.7 Glucose Level 88 Hematocrit 23.8 L Hemoglobin 7.9 L Lymphocytes # 0.6 L Lymphocytes % 10.3 L Mean Corpuscular Hemoglobin 30.5 Mean Corpuscular Hemoglobin Concent 33.4 Mean Corpuscular Volume 91.4 Mean Platelet Volume 9.7 Monocytes # 0.6 Monocytes % 9.9 Neutrophils # 4.7 Neutrophils % 77.0 Nucleated Red Blood Cells # 0.0 Nucleated Red Blood Cells % 0.0 Platelet Count 214 Potassium Level 4.9 Red Blood Count 2.61 L Red Cell Distribution Width 13.8 Sodium Level 144 White Blood Count 6.1 Medications Medications Current Medications Ondansetron HCl (Zofran Inj) 4 mg Q6H PRN IV NAUSEA AND/OR VOMITING Last administered on 03/08/16 18:13; Admin Dose 4 MG; Start 02/24/16 at 07:00 Acetaminophen (Tylenol Tab) 650 mg Q6H PRN PO PAIN LEVEL 1-3 OR FEVER Last administered on 02/25/16 08:41; Admin Dose 650 MG; Start 02/24/16 at 07:00 Morphine Sulfate (morphine) 2 mg Q4H PRN IV PAIN LEVEL 7-10 Last administered on 03/09/16 07:51; Admin Dose 2 MG; Start 02/24/16 at 07:00 Escitalopram Oxalate (Lexapro) 10 mg DAILY PO Last administered on 03/09/16 09: 20; Admin Dose 10 MG; Start 02/24/16 at 09:00 Magnesium Hydroxide (Milk Of Mag) 30 ml DAILY PRN PO CONSTIPATION; Start at 07:00 Multivitamins Therapeutic (Theragran) 1 tab DAILY PO Last administered on 09:20; Admin Dose 1 TAB; Start 02/24/16 at 09:00 Polyethylene Glycol (Miralax) 17 gm QHS PO Last administered on 03/08/16 21:09 ; Admin Dose 17 GM; Start 02/24/16 at 21:00 Risperidone (Risperdal) 0.5 mg BID PO Last administered on 03/09/16 09:20; Admin Dose 0.5 MG; Start 02/24/16 at 09:00 Hydromorphone HCl (Dilaudid) 0.5 mg Q6H PRN IV pain Last administered on 11:39; Admin Dose 0.5 MG; Start 02/24/16 at 16:00 Acetaminophen/ Hydrocodone Bitart ([place] (5/325)) 1 tab Q4H PRN GTB pain Last administered on 03/07/16 05:59; Admin Dose 1 TAB; Start 02/25/16 at 12:00 Zinc Sulfate (Zinc Sulfate) 220 mg DAILY GTB Last administered on 03/09/16 09: 20; Admin Dose 220 MG; Start 02/26/16 at 09:00 IV Flush (NS 10 ml) 10 ml PRN PRN IV IV PROTOCOL; Start 02/25/16 at 15:30 Mupirocin (Bactroban) 1 applic BID TOP Last administered on 03/09/16 09:21; Admin Dose 1 APPLIC; Start 02/26/16 at 18:30 Dextrose (D50w Syringe) 50 ml PRN PRN IV DECREASED GLUCOSE Last administered on 02/27/16 07:21; Admin Dose 50 ML; Start 02/27/16 at 07:00 Glycopyrrolate (Robinul) 1 mg TID GTB Last administered on 03/09/16 09:20; Admin Dose 1 MG; Start 02/27/16 at 13:00 Silver Nitrate (Silver Nitrate Swabs) 1 stick BID TOP Last administered on 09:22; Admin Dose 1 STICK; Start 03/01/16 at 10:30 Collagenase 1 applic 1 applic DAILY TOP Last administered on 03/09/16 09:22; Admin Dose 1 APPLIC; Start 03/03/16 at 09:00 Sodium Chloride (1/2 NS) 1,000 ml @ 50 mls/hr Q20H IV Last administered on 14:57; Admin Dose 50 MLS/HR; Start 03/03/16 at 14:30 Lactulose (Enulose) 20 gm Q6 PO Last administered on 03/09/16 05:14; Admin Dose 20 GM; Start 03/07/16 at 00:00 Lansoprazole (Prevacid) 30 mg DAILY@06 PO ; Start 03/10/16 at 06:00 [place] Mar 09, 2016 11:57
--- NOTE | 2016-03-09 13:12 | PN ---
Date/Time of Note Date/Time of Note DATE: 03/09/16 TIME: 13:10 Assessment/Plan VTE Prophylaxis VTE Prophylaxis Intervention: SCD's Lines/Catheters IV Catheter Type (from [facility]): PICC Line Central line still needed: Yes Urinary Cath still in place: Yes (suprapubic catheter) Reason Cath still needed: urinary retention Assessment/Plan Chief Complaint/Hosp Course ASSESSMENT AND PLAN: - Severe sepsis with shock, most likely, secondary to urinary tract infection. Dr. Maciel is following patient in infectious disease consultation. Continue antibiotics per ID. Continue meropenem for 2 more days per ID recommendations. - Urinary tract infection per urinalysis. - Neurogenic bladder with suprapubic catheter. Status post suprapubic catheter change by Dr. Marquez, urology. - Chronic ventilator dependent respiratory failure. Dr. Ames is following patient in a pulmonology consultation. Continue ventilator support broncho dilators. - Dysphagia with a G-tube. Continue current tube feeding. Aspiration precautions. - Acute renal failure, improved. Patient is followed by Dr. Wright in nephrology consultation. Continue IV fluids. Monitor BUN and creatinine. 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 - Sacral decubitus stage III. Continue offloading, continue current wound care. Continue sequential compression device for deep venous thrombosis prophylaxis and Protonix for peptic ulcer disease prophylaxis. Further recommendations based on clinical course. Plan of care discussed with Dr. Barreto. Problems: Subjective 24 Hr Interval Summary Free Text/Dictation Patient denies any nausea today confirmed with RN, hemoglobin is 7.9, pending blood transfusion. Exam/Review of Systems Vital Signs Vitals Vital Signs Date Time Temp Pulse Resp B/P Pulse Ox O2 Delivery O2 Flow Rate FiO2 03/09/16 12:31 62 03/09/16 11:34 98.3 18 117/57 97 03/09/16 11:10 40 Intake and Output 03/08/16 03/08/16 03/09/16 15:00 23:00 07:00 Intake Total 2140 ml 1100 ml Output Total 2500 ml 2000 ml Balance -360 ml -900 ml Exam GENERAL: A well-developed male, currently is awake, opens eyes in response to verbal stimuli. HEENT: Head is atraumatic, normocephalic, PERRLA. NECK: Patient has a tracheostomy at the base of the neck. CHEST: Scattered rhonchi bilaterally. There are no wheezes or rales noted. HEART: Normal S1, S2. No murmurs, gallops, clicks, rubs noted. ABDOMEN: Round, soft, nondistended. G-tube. EXTREMITIES: Lower extremity was contracted body habitus and muscle wasting, no edema, pulses present. SKIN: Patient has a sacral decubitus stage III. No rash, petechiae noted. NEUROLOGIC: Patient is awake, opens eyes in response to verbal stimuli. Results Result Diagram: 03/09/16 0550 03/09/16 0550 Results 24 hrs Laboratory Tests Test 03/09/16 05:50 Anion Gap 15 Basophils # 0.0 Basophils % 0.1 Blood Morphology Comment Blood Urea Nitrogen 48 H Calcium Level 8.5 Carbon Dioxide Level 25 Chloride Level 109 Creatinine 1.59 H Eosinophils # 0.2 Eosinophils % 2.7 Glucose Level 88 Hematocrit 23.8 L Hemoglobin 7.9 L Lymphocytes # 0.6 L Lymphocytes % 10.3 L Mean Corpuscular Hemoglobin 30.5 Mean Corpuscular Hemoglobin Concent 33.4 Mean Corpuscular Volume 91.4 Mean Platelet Volume 9.7 Monocytes # 0.6 Monocytes % 9.9 Neutrophils # 4.7 Neutrophils % 77.0 Nucleated Red Blood Cells # 0.0 Nucleated Red Blood Cells % 0.0 Platelet Count 214 Potassium Level 4.9 Red Blood Count 2.61 L Red Cell Distribution Width 13.8 Sodium Level 144 White Blood Count 6.1 Medications Medications Current Medications Ondansetron HCl (Zofran Inj) 4 mg Q6H PRN IV NAUSEA AND/OR VOMITING Last administered on 03/08/16 18:13; Admin Dose 4 MG; Start 02/24/16 at 07:00 Acetaminophen (Tylenol Tab) 650 mg Q6H PRN PO PAIN LEVEL 1-3 OR FEVER Last administered on 02/25/16 08:41; Admin Dose 650 MG; Start 02/24/16 at 07:00 Morphine Sulfate (morphine) 2 mg Q4H PRN IV PAIN LEVEL 7-10 Last administered on 03/09/16 07:51; Admin Dose 2 MG; Start 02/24/16 at 07:00 Escitalopram Oxalate (Lexapro) 10 mg DAILY PO Last administered on 03/09/16 09: 20; Admin Dose 10 MG; Start 02/24/16 at 09:00 Magnesium Hydroxide (Milk Of Mag) 30 ml DAILY PRN PO CONSTIPATION; Start at 07:00 Multivitamins Therapeutic (Theragran) 1 tab DAILY PO Last administered on 09:20; Admin Dose 1 TAB; Start 02/24/16 at 09:00 Polyethylene Glycol (Miralax) 17 gm QHS PO Last administered on 03/08/16 21:09 ; Admin Dose 17 GM; Start 02/24/16 at 21:00 Risperidone (Risperdal) 0.5 mg BID PO Last administered on 03/09/16 09:20; Admin Dose 0.5 MG; Start 02/24/16 at 09:00 Hydromorphone HCl (Dilaudid) 0.5 mg Q6H PRN IV pain Last administered on 11:39; Admin Dose 0.5 MG; Start 02/24/16 at 16:00 Acetaminophen/ Hydrocodone Bitart ([place] (5/325)) 1 tab Q4H PRN GTB pain Last administered on 03/07/16 05:59; Admin Dose 1 TAB; Start 02/25/16 at 12:00 Zinc Sulfate (Zinc Sulfate) 220 mg DAILY GTB Last administered on 03/09/16 09: 20; Admin Dose 220 MG; Start 02/26/16 at 09:00 IV Flush (NS 10 ml) 10 ml PRN PRN IV IV PROTOCOL; Start 02/25/16 at 15:30 Mupirocin (Bactroban) 1 applic BID TOP Last administered on 03/09/16 09:21; Admin Dose 1 APPLIC; Start 02/26/16 at 18:30 Dextrose (D50w Syringe) 50 ml PRN PRN IV DECREASED GLUCOSE Last administered on 02/27/16 07:21; Admin Dose 50 ML; Start 02/27/16 at 07:00 Glycopyrrolate (Robinul) 1 mg TID GTB Last administered on 03/09/16 09:20; Admin Dose 1 MG; Start 02/27/16 at 13:00 Silver Nitrate (Silver Nitrate Swabs) 1 stick BID TOP Last administered on 09:22; Admin Dose 1 STICK; Start 03/01/16 at 10:30 Collagenase 1 applic 1 applic DAILY TOP Last administered on 03/09/16 09:22; Admin Dose 1 APPLIC; Start 03/03/16 at 09:00 Sodium Chloride (1/2 NS) 1,000 ml @ 50 mls/hr Q20H IV Last administered on 03/09 10:30; Admin Dose 50 MLS/HR; Start 03/03/16 at 14:30 Lactulose (Enulose) 20 gm Q6 PO Last administered on 03/09/16 05:14; Admin Dose 20 GM; Start 03/07/16 at 00:00 Lansoprazole (Prevacid) 30 mg DAILY@06 PO ; Start 03/10/16 at 06:00 AISSATOU DUNCAN Mar 09, 2016 13:12
--- NOTE | 2016-03-09 15:57 | CONS ---
Date/Time of Note Date/Time of Note DATE: 03/09/16 TIME: 15:56 Assessment/Plan Assessment/Plan Additional Assessment/Plan Sepsis Respiratory Failure Preserved EF HTN Intermittent Mobitz I -Blood pressure trend remained stable, vent management as per our pulmonary colleagues. No new cardiac orders at the current time. Consultation Date/Type/Reason Admit Date/Time Feb 24, 2016 at 05:06 Type of Consultation: cv Referring Provider: JOSÉ ANTONIO MIRZA MD 24 HR Interval Summary Free Text/Dictation Patient seen and examined, denies chest pain or shortness of breath Exam/Review of Systems Vital Signs Vitals Vital Signs Date Time Temp Pulse Resp B/P Pulse Ox O2 Delivery O2 Flow Rate FiO2 03/09/16 15:24 98.6 78 22 116/73 99 03/09/16 11:10 40 Intake and Output 03/08/16 03/08/16 03/09/16 15:00 23:00 07:00 Intake Total 2140 ml 1100 ml Output Total 2500 ml 2000 ml Balance -360 ml -900 ml Exam Follows commands, no apparent distress Constitutional: alert Head: normocephalic Neck: other (tracheostomy) Respiratory: other (course breath sounds bilaterally, no wheezing) Cardiovascular: other (S1-S2 heard), regular rate and rhythm Gastrointestinal: bowel sounds, non-tender, soft Extremities: edema (trace) Results Result Diagram: 03/09/16 0550 03/09/16 0550 Results 24 hrs Laboratory Tests Test 03/09/16 05:50 Anion Gap 15 Basophils # 0.0 Basophils % 0.1 Blood Morphology Comment Blood Urea Nitrogen 48 H Calcium Level 8.5 Carbon Dioxide Level 25 Chloride Level 109 Creatinine 1.59 H Eosinophils # 0.2 Eosinophils % 2.7 Glucose Level 88 Hematocrit 23.8 L Hemoglobin 7.9 L Lymphocytes # 0.6 L Lymphocytes % 10.3 L Mean Corpuscular Hemoglobin 30.5 Mean Corpuscular Hemoglobin Concent 33.4 Mean Corpuscular Volume 91.4 Mean Platelet Volume 9.7 Monocytes # 0.6 Monocytes % 9.9 Neutrophils # 4.7 Neutrophils % 77.0 Nucleated Red Blood Cells # 0.0 Nucleated Red Blood Cells % 0.0 Platelet Count 214 Potassium Level 4.9 Red Blood Count 2.61 L Red Cell Distribution Width 13.8 Sodium Level 144 White Blood Count 6.1 Medications Medications Current Medications Ondansetron HCl (Zofran Inj) 4 mg Q6H PRN IV NAUSEA AND/OR VOMITING Last administered on 03/08/16 18:13; Admin Dose 4 MG; Start 02/24/16 at 07:00 Acetaminophen (Tylenol Tab) 650 mg Q6H PRN PO PAIN LEVEL 1-3 OR FEVER Last administered on 02/25/16 08:41; Admin Dose 650 MG; Start 02/24/16 at 07:00 Morphine Sulfate (morphine) 2 mg Q4H PRN IV PAIN LEVEL 7-10 Last administered on 03/09/16 14:36; Admin Dose 2 MG; Start 02/24/16 at 07:00 Escitalopram Oxalate (Lexapro) 10 mg DAILY PO Last administered on 03/09/16 09: 20; Admin Dose 10 MG; Start 02/24/16 at 09:00 Magnesium Hydroxide (Milk Of Mag) 30 ml DAILY PRN PO CONSTIPATION; Start at 07:00 Multivitamins Therapeutic (Theragran) 1 tab DAILY PO Last administered on 09:20; Admin Dose 1 TAB; Start 02/24/16 at 09:00 Polyethylene Glycol (Miralax) 17 gm QHS PO Last administered on 03/08/16 21:09 ; Admin Dose 17 GM; Start 02/24/16 at 21:00 Risperidone (Risperdal) 0.5 mg BID PO Last administered on 03/09/16 09:20; Admin Dose 0.5 MG; Start 02/24/16 at 09:00 Hydromorphone HCl (Dilaudid) 0.5 mg Q6H PRN IV pain Last administered on 11:39; Admin Dose 0.5 MG; Start 02/24/16 at 16:00 Acetaminophen/ Hydrocodone Bitart ([place] (5/325)) 1 tab Q4H PRN GTB pain Last administered on 03/07/16 05:59; Admin Dose 1 TAB; Start 02/25/16 at 12:00 Zinc Sulfate (Zinc Sulfate) 220 mg DAILY GTB Last administered on 03/09/16 09: 20; Admin Dose 220 MG; Start 02/26/16 at 09:00 IV Flush (NS 10 ml) 10 ml PRN PRN IV IV PROTOCOL; Start 02/25/16 at 15:30 Mupirocin (Bactroban) 1 applic BID TOP Last administered on 03/09/16 09:21; Admin Dose 1 APPLIC; Start 02/26/16 at 18:30 Dextrose (D50w Syringe) 50 ml PRN PRN IV DECREASED GLUCOSE Last administered on 02/27/16 07:21; Admin Dose 50 ML; Start 02/27/16 at 07:00 Glycopyrrolate (Robinul) 1 mg TID GTB Last administered on 03/09/16 15:03; Admin Dose 1 MG; Start 02/27/16 at 13:00 Silver Nitrate (Silver Nitrate Swabs) 1 stick BID TOP Last administered on 09:22; Admin Dose 1 STICK; Start 03/01/16 at 10:30 Collagenase 1 applic 1 applic DAILY TOP Last administered on 03/09/16 09:22; Admin Dose 1 APPLIC; Start 03/03/16 at 09:00 Sodium Chloride (1/2 NS) 1,000 ml @ 50 mls/hr Q20H IV Last administered on 03/09 10:30; Admin Dose 50 MLS/HR; Start 03/03/16 at 14:30 Lactulose (Enulose) 20 gm Q6 PO Last administered on 03/09/16 05:14; Admin Dose 20 GM; Start 03/07/16 at 00:00 Lansoprazole (Prevacid) 30 mg DAILY@06 PO ; Start 03/10/16 at 06:00 Deandre Chavez DO Mar 09, 2016 15:57
--- NOTE | 2016-03-09 16:59 | PN ---
DATE: 03/09/2016 SUBJECTIVE: The patient is awake, responsive. He is on ventilator support. OBJECTIVE: VITAL SIGNS: Stable. Temperature is 98.3, blood pressure is 117/57, pulse rate is 78, respirations are 18, pulse oximetry 97% saturation. NECK: Tracheal secretions are clear. No bleeding is seen. HEART: Regular rhythm. CHEST: Breath sounds are heard bilaterally, somewhat diminished in the lower lung tier[place] with a few intermittent rales and rhonchi. ABDOMEN: Soft, not distended, tolerating gastrostomy tube feedings. Normal bowel sounds. EXTREMITIES: Show no edema. He is paraplegic. LABORATORY DATA: Show sodium 144, potassium 4.9, bicarbonate of 25, BUN 48, creatinine 1.59, glucos e 88. BUN and creatinine have been fluctuating. Lab tests show WBC 6100, hemoglobin 7.9, hematocri t 23.8, platelets are within normal limits. IMAGING: Chest x-ray with unchanged pulmonary edema with left basilar atelectasis; however, clinica lly, the patient does not have pulmonary edema. ASSESSMENT AND PLAN: 1. Chronic respiratory failure, ventilator dependent. 2. Resolved urosepsis. 3. Chronic anemia. 4. Chronic kidney disease, acute kidney injury, improving. 5. Status post paraplegia secondary to spinal cord injury. 6. Status post tracheostomy. 7. Status post gastrostomy. RECOMMENDATIONS: 1. Continue long-term ventilator support. 2. Continue antibiotics as prescribed by infectious disease senior product consultant. 3. Continue tube feedings. 4. Continue deep venous thrombosis prophylaxis and GI prophylaxis. 5. The patient is scheduled to have blood transfusion today. Dictated By: HUMBERTO PEREZ MD, SR/QUE Conf#: [id number] DID#: [id number]
--- NOTE | 2016-03-09 20:16 | CONS ---
Date/Time of Note Date/Time of Note DATE: 03/09/16 TIME: 20:15 Assessment/Plan Assessment/Plan Chief Complaint/Hosp Course IMPRESSION: The patient has: 1. Acute kidney injury.better 2. Sepsis. 3. Underlying prerenal azotemia. 4. Underlying acute tubular necrosis due to sepsis. 5. Anion gap metabolic acidosis. 6. res failure 7. Leukocytosis. 8. Anemia. 9. Urinary tract infection. 10. peg 11. Paraplegia. 12. Respiratory failure and tracheostomy. 13 hyperkalemia better plan iv fluid ck labs renal stable paulinaxabetzy prn Problems: Consultation Date/Type/Reason Admit Date/Time Feb 24, 2016 at 05:06 Type of Consultation: renal Referring Provider: JOSÉ ANTONIO MIRZA MD 24 HR Interval Summary Constitutional: no complaints Exam/Review of Systems Vital Signs Vitals Vital Signs Date Time Temp Pulse Resp B/P Pulse Ox O2 Delivery O2 Flow Rate FiO2 03/09/16 20:00 98.7 80 15 130/76 92 03/09/16 19:00 30 Intake and Output 03/08/16 03/08/16 03/09/16 15:00 23:00 07:00 Intake Total 2140 ml 1100 ml Output Total 2500 ml 2000 ml Balance -360 ml -900 ml Exam Respiratory: clear to auscultation Cardiovascular: regular rate and rhythm Gastrointestinal: soft Results Result Diagram: 03/09/16 0550 03/09/16 0550 Results 24 hrs Laboratory Tests Test 03/09/16 05:50 Anion Gap 15 Basophils # 0.0 Basophils % 0.1 Blood Morphology Comment Blood Urea Nitrogen 48 H Calcium Level 8.5 Carbon Dioxide Level 25 Chloride Level 109 Creatinine 1.59 H Eosinophils # 0.2 Eosinophils % 2.7 Glucose Level 88 Hematocrit 23.8 L Hemoglobin 7.9 L Lymphocytes # 0.6 L Lymphocytes % 10.3 L Mean Corpuscular Hemoglobin 30.5 Mean Corpuscular Hemoglobin Concent 33.4 Mean Corpuscular Volume 91.4 Mean Platelet Volume 9.7 Monocytes # 0.6 Monocytes % 9.9 Neutrophils # 4.7 Neutrophils % 77.0 Nucleated Red Blood Cells # 0.0 Nucleated Red Blood Cells % 0.0 Platelet Count 214 Potassium Level 4.9 Red Blood Count 2.61 L Red Cell Distribution Width 13.8 Sodium Level 144 White Blood Count 6.1 Medications Medications Current Medications Ondansetron HCl (Zofran Inj) 4 mg Q6H PRN IV NAUSEA AND/OR VOMITING Last administered on 03/08/16 18:13; Admin Dose 4 MG; Start 02/24/16 at 07:00 Acetaminophen (Tylenol Tab) 650 mg Q6H PRN PO PAIN LEVEL 1-3 OR FEVER Last administered on 02/25/16 08:41; Admin Dose 650 MG; Start 02/24/16 at 07:00 Morphine Sulfate (morphine) 2 mg Q4H PRN IV PAIN LEVEL 7-10 Last administered on 03/09/16 20:08; Admin Dose 2 MG; Start 02/24/16 at 07:00 Escitalopram Oxalate (Lexapro) 10 mg DAILY PO Last administered on 03/09/16 09: 20; Admin Dose 10 MG; Start 02/24/16 at 09:00 Magnesium Hydroxide (Milk Of Mag) 30 ml DAILY PRN PO CONSTIPATION; Start at 07:00 Multivitamins Therapeutic (Theragran) 1 tab DAILY PO Last administered on 09:20; Admin Dose 1 TAB; Start 02/24/16 at 09:00 Polyethylene Glycol (Miralax) 17 gm QHS PO Last administered on 03/08/16 21:09 ; Admin Dose 17 GM; Start 02/24/16 at 21:00 Risperidone (Risperdal) 0.5 mg BID PO Last administered on 03/09/16 09:20; Admin Dose 0.5 MG; Start 02/24/16 at 09:00 Hydromorphone HCl (Dilaudid) 0.5 mg Q6H PRN IV pain Last administered on 18:30; Admin Dose 0.5 MG; Start 02/24/16 at 16:00 Acetaminophen/ Hydrocodone Bitart ([place] (5/325)) 1 tab Q4H PRN GTB pain Last administered on 03/07/16 05:59; Admin Dose 1 TAB; Start 02/25/16 at 12:00 Zinc Sulfate (Zinc Sulfate) 220 mg DAILY GTB Last administered on 03/09/16 09: 20; Admin Dose 220 MG; Start 02/26/16 at 09:00 IV Flush (NS 10 ml) 10 ml PRN PRN IV IV PROTOCOL; Start 02/25/16 at 15:30 Mupirocin (Bactroban) 1 applic BID TOP Last administered on 03/09/16 09:21; Admin Dose 1 APPLIC; Start 02/26/16 at 18:30 Dextrose (D50w Syringe) 50 ml PRN PRN IV DECREASED GLUCOSE Last administered on 02/27/16 07:21; Admin Dose 50 ML; Start 02/27/16 at 07:00 Glycopyrrolate (Robinul) 1 mg TID GTB Last administered on 03/09/16 15:03; Admin Dose 1 MG; Start 02/27/16 at 13:00 Silver Nitrate (Silver Nitrate Swabs) 1 stick BID TOP Last administered on 09:22; Admin Dose 1 STICK; Start 03/01/16 at 10:30 Collagenase 1 applic 1 applic DAILY TOP Last administered on 03/09/16 09:22; Admin Dose 1 APPLIC; Start 03/03/16 at 09:00 Sodium Chloride (1/2 NS) 1,000 ml @ 50 mls/hr Q20H IV Last administered on 03/09 10:30; Admin Dose 50 MLS/HR; Start 03/03/16 at 14:30 Lactulose (Enulose) 20 gm Q6 PO Last administered on 03/09/16 05:14; Admin Dose 20 GM; Start 03/07/16 at 00:00 Lansoprazole (Prevacid) 30 mg DAILY@06 PO ; Start 03/10/16 at 06:00 BRIANDA HIRSCH MD Mar 09, 2016 20:16
[2016-03-09] MEDS: POLYETHYLENE GLYCOL 17 GM PACKET PO SCH (21:00)
[2016-03-09] MEDS: ZOLPIDEM 5 MG TAB PO PRN (21:29)
[2016-03-10] VITALS (12 sets, daily range): BP systolic 110–127; BP diastolic 58–77; PULSE 69–98; RESP 15–25
[2016-03-10] MEDS: morphine 2 MG INJ IV PRN ×2 (05:27→10:41)
[2016-03-10] MEDS ORDERED: LANSOPRAZOLE 30 MG CAP PO SCH (06:00)
[2016-03-10] MEDS: LACTULOSE 30ML CUP PO SCH ×2 (06:00)
[2016-03-10] MEDS: SOD CHLORIDE 0.45% 1,000 ML IV SCH (06:22)
[2016-03-10] MEDS: RISPERIDONE 0.25 MG TAB PO SCH (08:20)
[2016-03-10] MEDS: GLYCOPYRROLATE 1 MG TAB GTB SCH (08:20)
[2016-03-10] MEDS: ZINC SULFATE 220 MG CAP GTB SCH (08:20)
[2016-03-10] MEDS: ESCITALOPRAM 10 MG TAB PO SCH (08:20)
[2016-03-10] MEDS: MUPIROCIN 2% 22 GM OINT TOP SCH (08:21)
[2016-03-10] MEDS: MULTIVITAMINS THERAPEUTIC TAB PO SCH (08:21)
[2016-03-10] MEDS: SILVER NITRATE SWAB TOP SCH (08:22)
[2016-03-10] MEDS: HYDROmorphONE 1 MG/ML SYG IV PRN (08:22)
[2016-03-10] MEDS: COLLAGENASE 30 GM TUBE TOP SCH (08:22)
[2016-03-10 08:23] LABS: BASOPHILS % 0.3 % (0.0-2.0); EOSINOPHILS # 0.1 10^3/ul (0.0-0.5); EOSINOPHILS % 1.7 % (0.0-7.0); HEMATOCRIT 30.3 % (42.0-52.0); LYMPHOCYTES # 0.7 10^3/ul (0.8-2.9); LYMPHOCYTES % 10.7 % (15.0-51.0); MEAN CORPUSCULAR HEMOGLOBIN 30.4 pg (29.0-33.0); MEAN CORPUSCULAR HGB CONC 33.1 g/dl (32.0-37.0); MEAN PLATELET VOLUME 9.6 fl (7.4-10.4); MONOCYTE # 0.7 10^3/ul (0.3-0.9); MONOCYTES % 10.8 % (0.0-11.0); NEUTROPHIL # 4.7 10^3/ul (1.6-7.5); NEUTROPHILS % 76.5 % (39.0-77.0); PLATELET COUNT 192 10^3/UL (140-440); RED BLOOD COUNT 3.29 10^6/ul (4.70-6.10); UNCORRECTED WBC 6.2 10^3/ul (4.8-10.8); WHITE BLOOD COUNT 6.2 10^3/ul (4.8-10.8)
[2016-03-10 08:29] LABS: CONDITION 1
[2016-03-10 08:37] LABS: POTASSIUM 5.1 mmol/L (3.5-5.1)
[2016-03-10 08:39] LABS: CREATININE 1.59 mg/dl (0.61-1.24)
[2016-03-10 08:40] LABS: CALCIUM 8.6 mg/dl (8.4-10.2)
--- NOTE | 2016-03-10 10:30 | PDOCDIS ---
Discharge Instructions CONDITION Patient Condition: Stable HOME CARE INSTRUCTIONS: Special Diet: GTUBE FEEDING ACTIVITY: Activity Restrictions: Slowly Increase Activity Rest between Activity Avoid heavy lifting Do not operate Machinery Do not operate Power Tool Avoid Heavy Housework Bathing Restrictions: Sponge Bath FOLLOW UP/APPOINTMENTS Appointments FU with primary x 1 week FU with specialitis as recommended Call 911 or go to [facility] nearest hospital if symptoms get worse. NANCY Barreto/staff NAE VELAZCO Mar 10, 2016 10:30
--- NOTE | 2016-03-10 10:33 | DS ---
Date/Time of Note Date/Time of Note DATE: 03/10/16 TIME: 10:32 Discharge Summary Admission/Discharge Info Admit Date/Time Feb 24, 2016 at 05:06 Discharge Date/Time Patient Condition: Stable Hx of Present Illness BIBA low O2 level after suctioning, resp distress, desaturation continued. HPI This is a 40-year-old male brought in by ambulance [facility] Patient trached vent patient. No history of per patient. History of EMS run sheet nursing transfer sheet. ROS All systems reviewed and are negative except as per history of present illness. Medications Home Meds Reported Medications Polyethylene Glycol* (Miralax*) 17 Gm Powd.pack, 17 GM PO QHS, PACKET 04/16/15 Multivitamins* (Once Daily*) 1 Tab Tablet, 1 TAB PO DAILY, TAB 04/16/15 Ondansetron Hcl* (Zofran*) 4 Mg Tablet, 4 MG PO Q6H Y for NAUSEA AND OR VOMITING , TAB 04/16/15 Magnesium Hydroxide* (Milk Of Magnesia*) 400 Mg/5 Ml Oral.susp, 30 ML PO DAILY Y for CONSTIPATION, ML 04/16/15 Escitalopram Oxalate* (Lexapro*) 10 Mg Tablet, 10 MG PO DAILY, #30 TAB 04/16/15 Na Phos,M-B/Na Phos,Di-Ba* (Fleet* Enema) 118 Ml Enema, 118 ML PA Q48H Y for CONSTIPATION, ENEMA 04/16/15 Ferrous Sulfate* (Ferrous Sulfate*) 325 Mg Tabec, 325 MG PO DAILY, TAB 04/16/15 Bisacodyl* (Dulcolax*) 10 Mg/Supp.rect Supp.rect, 10 MG PA Q24H Y for CONSTIPATION, SUPP.RECT 04/16/15 Dantrolene Sodium* (Dantrolene Sodium*) 50 Mg Capsule, 50 MG PO BID, CAP 04/16/15 Docusate Sodium* (Colace*) 100 Mg Capsule, 200 MG PO QHS, #30 CAP 04/16/15 Chlorhexidine Gluconate* (Peridex*) 480 Ml Mouthwash, 15 ML MM Q12, ML 04/16/15 Levalbuterol Hcl* (Levalbuterol Hcl*) 1.25 Mg/3 Ml Vial.neb, 1.25 MG INHALATION Q6H Y for WHEEZING AND SOB, VIAL 04/16/15 Levalbuterol* (Xopenex*) 1.25 Mg/3 Ml Nebu, 1.25 MG NEB Q3H Y for WHEEZING AND SOB, EA 04/16/15 Ascorbic Acid (Vitamin C) 500 Mg Tab, 500 MG PO DAILY, TAB 04/16/15 Cran/Vitc/Mannose/Inulin/Brom (Uti-Stat Liquid) 3,875 Mg/30 Ml Liquid, 3875 MG PO DAILY 04/16/15 Acetaminophen* (Tylenol*) 500 Mg Tab, 1000 MG PO Q4H Y for MODERATE PAIN LEVEL 4 -6, TAB 04/16/15 Acetaminophen* (Tylenol*) 325 Mg Tablet, 650 MG PO Q4 Y for FEVER GREATER THAN 100.6, TAB 04/16/15 Acetaminophen* (Tylenol*) 325 Mg Tablet, 650 MG PO Q4H Y for MILD PAIN LEVEL 1-3 , TAB 04/16/15 Acetaminophen* (Tylenol*) 325 Mg Tablet, 325 MG PO Y for TRACH TUBE CHANGE, TAB 04/16/15 Risperidone* (Risperdal*) 0.5 Mg Tablet, 0.5 MG PO BID, TAB 04/16/15 Pantoprazole (Protonix) 40 Mg/Blist Pack Suspdr.pkt, 40 MG PO DAILY, PACKET 04/16/15 Hydrocodone Bit-Acetaminophen* ([place]*) 5-325 Mg Tab, 1 TAB PO BID, TAB 04/16/15 Hydrocodone Bit-Acetaminophen* ([place]*) 5-325 Mg Tab, 1 TAB PO Q6 Y for PAIN LEVEL 7-10, TAB 04/16/15 Allergies Allergies: Coded Allergies: No Known Allergy (Unverified , 04/16/15) Hospital Course IMPRESSION: The patient has: 1. Acute kidney injury.better 2. Sepsis. 3. Underlying prerenal azotemia. 4. Underlying acute tubular necrosis due to sepsis. 5. Anion gap metabolic acidosis. 6. res failure 7. Leukocytosis. 8. Anemia. 9. Urinary tract infection. 10. peg 11. Paraplegia. 12. Respiratory failure and tracheostomy. 13 hyperkalemia better plan iv fluid ck labs renal stable kayexalete prn Home Meds Reported Medications Risperidone* (Risperidone*) 1 Mg Tablet, 1 MG GTB BID, TAB 02/24/16 Sevelamer Carbonate* (Renvela*) 0.8 Gm Powd.pack, 0.8 GM PO WITH MEALS, PACKET 02/24/16 Calcium Carbonate/Vitamin D3 (OYSTER SHELL 500 MG + VIT D TB) 1 Each Tablet, 1 EACH PO DAILY, TAB 02/24/16 Amlodipine Besylate* (Norvasc*) 5 Mg Tablet, 5 MG GTB DAILY, TAB HOLD FOR SBP BELOW 110, HR BELOW 60 02/24/16 Hydrocodone/Acetaminophen ([place] 5-325 Tablet) 1 Each Tablet, 1 EACH GTB BID, TAB 02/24/16 Multivitamins* (Multi-Delyn* Liq) 473 Ml Liquid, 30 ML PO DAILY Y for CONSTIPATION, ML 02/24/16 Oxybutynin Chloride* (Ditropan* XL) 5 Mg Tabsr, 5 MG GTB BID, TAB.SA 02/24/16 Citric Acid/Sodium Citrate* (Bicitra* (PEDIATRIC)) 1 Meq/Ml Soln, 5 ML GTB BID for 30 Days, BOTTLE 02/24/16 Lorazepam* (Lorazepam*) 1 Mg Tablet, 1 MG GTB Q6 Y for ANXIETY, #30 TAB 02/24/16 Polyethylene Glycol* (Miralax*) 17 Gm Powd.pack, 17 GM PO QHS, PACKET 04/16/15 Magnesium Hydroxide* (Milk Of Magnesia*) 400 Mg/5 Ml Oral.susp, 30 ML GTB DAILY Y for CONSTIPATION, ML 04/16/15 Escitalopram Oxalate* (Lexapro*) 10 Mg Tablet, 10 MG GTB DAILY, #30 TAB 04/16/15 Ferrous Sulfate* (Ferrous Sulfate*) 325 Mg Tabec, 330 MG GTB DAILY, TAB 04/16/15 Dantrolene Sodium* (Dantrolene Sodium*) 50 Mg Capsule, 50 MG PO BID, CAP 04/16/15 Docusate Sodium* (Colace*) 100 Mg Capsule, 100 MG GTB QHS Y for CONSTIPATION, # 30 CAP 04/16/15 Chlorhexidine Gluconate* (Peridex*) 480 Ml Mouthwash, 15 ML MM Q12, ML 04/16/15 Levalbuterol Hcl* (Levalbuterol Hcl*) 1.25 Mg/3 Ml Vial.neb, 1.25 MG INHALATION Q6H Y for WHEEZING AND SOB, VIAL 04/16/15 Levalbuterol* (Xopenex*) 1.25 Mg/3 Ml Nebu, 1.25 MG NEB Q3H Y for WHEEZING AND SOB, EA 04/16/15 Ascorbic Acid (Vitamin C) 500 Mg Tab, 500 MG GTB DAILY, TAB 04/16/15 Cran/Vitc/Mannose/Inulin/Brom (Uti-Stat Liquid) 3,875 Mg/30 Ml Liquid, 3875 MG GTB DAILY 04/16/15 Acetaminophen* (Tylenol*) 325 Mg Tablet, 650 MG GTB Q4H Y for MILD PAIN LEVEL 1- 3, TAB 04/16/15 Pantoprazole (Protonix) 40 Mg/Blist Pack Suspdr.pkt, 40 MG GTB DAILY, PACKET 04/16/15 Pending Labs Laboratory Tests Test 03/10/16 08:00 Anion Gap 18 (8-16) Basophils # 0.010^3/ul (0.0-0.1) Basophils % 0.3% (0.0-2.0) Blood Urea Nitrogen 47mg/dl (7-20) Calcium Level 8.6mg/dl (8.4-10.2) Carbon Dioxide Level 23mmol/L (21-31) Chloride Level 107mmol/L (97-110) Creatinine 1.59mg/dl (0.61-1.24) Eosinophils # 0.110^3/ul (0.0-0.5) Eosinophils % 1.7% (0.0-7.0) Glucose Level 93mg/dl (70-220) Hematocrit 30.3% (42.0-52.0) Hemoglobin 10.0g/dl (14.0-18.0) Lymphocytes # 0.710^3/ul (0.8-2.9) Lymphocytes % 10.7% (15.0-51.0) Mean Corpuscular Hemoglobin 30.4pg (29.0-33.0) Mean Corpuscular Hemoglobin Concent 33.1g/dl (32.0-37.0) Mean Corpuscular Volume 92.0fl (82.0-101.0) Mean Platelet Volume 9.6fl (7.4-10.4) Monocytes # 0.710^3/ul (0.3-0.9) Monocytes % 10.8% (0.0-11.0) Neutrophils # 4.710^3/ul (1.6-7.5) Neutrophils % 76.5% (39.0-77.0) Nucleated Red Blood Cells # 0.010^3/ul (0.0-0.0) Nucleated Red Blood Cells % 0.0/100WBC (0.0-0.0) Platelet Count 68669^3/UL (140-440) Potassium Level 5.1mmol/L (3.5-5.1) Red Blood Count 3.2910^6/ul (4.70-6.10) Red Cell Distribution Width 14.0% (11.5-14.5) Sodium Level 143mmol/L (135-144) White Blood Count 6.210^3/ul (4.8-10.8) NAE VELAZCO Mar 10, 2016 10:32
== END 2016-03-10 11:40 | DRG 870 ==
LOC: E/R 02:01 → TEL 05:06 → ICU 22:19 → TEL 03-04 23:16
PROVIDERS: ADMIT Internal Medicine; ATTEND Internal Medicine
PROC: 0B21XFZ Change Tracheostomy Device in Trachea, External Approach (ICD-10-PCS; 2016-02-24)
PROC: 5A1955Z Respiratory Ventilation, Greater than 96 Consecutive Hours (ICD-10-PCS; principal; 2016-02-25)
PROC: 02HV33Z Insertion of Infusion Device into Superior Vena Cava, Percutaneous Approach (ICD-10-PCS; 2016-02-25)
PROC: 0T2BX0Z Change Drainage Device in Bladder, External Approach (ICD-10-PCS; 2016-03-01)
PROC: 0D20XUZ Change Feeding Device in Upper Intestinal Tract, External Approach (ICD-10-PCS; 2016-03-04)
PROC: 30233N1 Transfusion of Nonautologous Red Blood Cells into Peripheral Vein, Percutaneous Approach (ICD-10-PCS; 2016-03-09)
DX: A41.9 Sepsis, unspecified organism (principal); N17.0 Acute kidney failure with tubular necrosis; R65.21 Severe sepsis with septic shock; J18.9 Pneumonia, unspecified organism; J96.10 Chronic respiratory failure, unspecified whether with hypoxia or hypercapnia; L89.153 Pressure ulcer of sacral region, stage 3; E87.2 Acidosis; L89.321 Pressure ulcer of left buttock, stage 1; G82.20 Paraplegia, unspecified; N39.0 Urinary tract infection, site not specified; E87.1 Hypo-osmolality and hyponatremia; Z43.1 Encounter for attention to gastrostomy; Z93.0 Tracheostomy status; N18.9 Chronic kidney disease, unspecified; R09.02 Hypoxemia; Z93.1 Gastrostomy status; Z43.0 Encounter for attention to tracheostomy; N31.9 Neuromuscular dysfunction of bladder, unspecified; Z22.322 Carrier or suspected carrier of Methicillin resistant Staphylococcus aureus; L89.322 Pressure ulcer of left buttock, stage 2; I44.1 Atrioventricular block, second degree
CPT/HCPCS: 36415; 36430; 36569; 36600; 71010; 74230; 76775; 76937; 80048; 80053; 80202; 81001; 81003; 82533; 82565; 82803; 82962; 83605; 83735; 83930; 83935; 84134; 84145; 84155; 84300; 84443; 84484; 84520; 85014; 85018; 85025; 85610; 85730; 86644; 86850; 86870; 86900; 86901; 86920; 87040; 87070; 87081; 87086; 89190; 90686; 92526; 92610; 93005; 93306; 94002; 94003; 96372; 96374; 96375; 96376; 97162; C9113; J0692; J1170; J2185; J2270; J2370; J2405; J2997; J3370; J3480; J7030; J7040; J7042; J7050; J7070; P9016; P9045

== ENCOUNTER 2016-05-03 09:43 | Inpatient (IN) | payer MEDICARE, OTHER ==
[~2016-05-03] VITALS: Ht 182.9 cm; Wt 68.2 kg
[~2016-05-03 09:43] MED LIST changes: -ACET325T33 PO; +AMLO5TAB4 GTB; +BICS GTB; -BISA10SU58 PR; +CALC-277 PO; -HYDR-3498 PO; +HYDR-906 GTB; +LORA1TAB GTB; -MULT-552 PO; +MULT473L10 PO; -NA P118E PR; -ONDA4TAB8 PO; +OXYB5TAB22 GTB; -RISP0.5T21 PO; +RISP1TAB3 GTB; +SEVE0.8P PO; -TYL500 PO
[2016-05-03 09:58] VITALS: Ht 182.9 cm; Wt 68.2 kg
[2016-05-03 10:41] LABS: ADD SCAN DIFF NO
[2016-05-03] MEDS ORDERED: ALBU2.5V3 NEB (10:41)
[2016-05-03] MEDS ORDERED: DOCU-159 GTB (10:43)
[2016-05-03] MEDS ORDERED: BISA10SU75 PR (10:43)
[2016-05-03] MEDS ORDERED: RISP0.5T3 GTB (10:45)
[2016-05-03] MEDS ORDERED: ZINC220T GTB (10:46)
[2016-05-03 10:47] LABS: ABNORMAL IP MESSAGE 1; HEMOGLOBIN 9.2 g/dl (14.0-18.0); MEAN CORPUSCULAR HEMOGLOBIN 30.8 pg (29.0-33.0); MEAN CORPUSCULAR HGB CONC 31.7 g/dl (32.0-37.0); PLATELET COUNT 210 10^3/UL (140-415); RED BLOOD COUNT 2.99 10^6/ul (4.70-6.10); RED CELL DISTRIBUTION WIDTH 15.4 % (11.5-14.5); WHITE BLOOD COUNT 5.4 10^3/ul (4.8-10.8)
[2016-05-03 10:57] LABS: INR 1.13; PROTIME 14.5 Sec (12.2-14.2); PT RATIO 1.1
[2016-05-03 10:58] LABS: CHLORIDE 110 mmol/L (97-110); PARTIAL THROMBOPLASTIN TIME 34.2 Sec (25.0-35.0); SODIUM 140 mmol/L (135-144)
[2016-05-03 10:59] LABS: POTASSIUM 4.4 mmol/L (3.5-5.1)
[2016-05-03 11:01] LABS: AMYLASE 51 U/L (11-123); ANION GAP 17 (8-16); ASPARTATE AMINO TRANSFERASE 18 IU/L (15-46); CARBON DIOXIDE 17 mmol/L (21-31); CREATININE 3.13 mg/dl (0.61-1.24); TOTAL PROTEIN 8.4 g/dl (6.1-8.1)
[2016-05-03 11:02] LABS: ALANINE AMINOTRANSFERASE 31 IU/L (13-69); ALKALINE PHOSPHATASE 198 IU/L (42-121); CALCIUM 9.3 mg/dl (8.4-10.2); GLUCOSE 114 mg/dl (70-220)
[2016-05-03] MEDS ORDERED: ONDANSETRON 4 MG INJ IV STA ×2 (11:03→14:03)
[2016-05-03] MEDS ORDERED: morphine 4 MG/ML VIAL IV STA (11:03)
[2016-05-03 11:23] LABS: BLOOD UREA NITROGEN 131 mg/dl (7-20); TROPONIN-I < 0.012 ng/ml (0.00-0.12)
[2016-05-03 11:27] LABS: EOSINOPHILS # 0.1 10^3/ul (0.0-0.5); LYMPHOCYTES # 0.6 10^3/ul (0.8-2.9); MONOCYTE # 0.4 10^3/ul (0.3-0.9); NEUTROPHIL # 4.3 10^3/ul (1.6-7.5)
--- NOTE | 2016-05-03 11:29 | RADRPT ---
PROCEDURE: Chest Radiograph. CLINICAL INDICATION: Sepsis TECHNIQUE: Single frontal chest radiograph. COMPARISON: Chest radiograph 03/08/2016 FINDINGS: A tracheostomy tube is in place.. Heart size is within normal limits. Mild diffuse increased densit y left hemithorax appears to be related to technical factors and centering artifact. There is no in filtrate or effusion. The bones are intact. IMPRESSION: 1. No evidence of acute cardiopulmonary disease. RPTAT: KK .Javier Arcos MD, MD Date Time Electronically viewed and signed by .Javier Arcos MD, MD on 05/03/2016 11:29 .B/
[2016-05-03] MEDS ORDERED: ACETAMINOPHEN 325 MG TAB PO PRN (12:30)
[2016-05-03] MEDS ORDERED: ONDANSETRON 4 MG INJ IV PRN (12:30)
[2016-05-03 13:02] LABS: ADD UMIC YES; URINE BILIRUBIN (Dip) NEGATIVE (NEGATIVE); URINE BLOOD (Dip) 3+ (NEGATIVE); URINE COLOR DK. YELLOW (YELLOW); URINE GLUCOSE (Dip) NEGATIVE (NEGATIVE); URINE KETONES (Dip) NEGATIVE (NEGATIVE); URINE LEUKOCYTE ESTERASE (Dip) 3+ (NEGATIVE); URINE NITRITE (Dip) POSITIVE (NEGATIVE); URINE TOTAL PROTEIN (Dip) 2+ (NEGATIVE); URINE UROBILINOGEN (Dip) 0.2 E.U./dL (0.1-1.0)
[2016-05-03 13:18] LABS: BACTERIA,URINE FEW
[2016-05-03] MEDS ORDERED: HYDROmorphONE 1 MG/ML SYG IV STA (14:03)
--- NOTE | 2016-05-03 14:03 | ERA ---
ER Documentation Chief Complaint Date/Time DATE: 05/03/16 TIME: 13:55 Chief Complaint BROUGHT IN VIA PRIVATE AMBULANCE FROM [facility] DUE TO ELEVATED BUN, HX CRF HPI This is a debilitated 40-year-old male that presents to the emergency department brought in by EMS from [facility] for elevation in the patient's BUN and creatinine. 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 The patient is able to tolerate p.o. diet but also receives tube feeds on a as needed basis. The patient on March 10, 2016 had been admitted to [facility] for sepsis. At that time the patient's BUN was 47 and creatinine was 1.59. The patient had a repeat electrolyte panel performed on April 04, 2016 with increase of the patient's BUN and creatinine. At this time the patient was treated at the [facility] care facility for severe prerenal as a tinea and had been receiving D5W IV fluids but there is no improvement of the patient's renal function. Therefore at this time the patient was immediately transferred to [facility] to discuss the possibility of emergent hemodialysis. The patient's primary care physician is Dr. Barreto. 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 Barker. The patient has an indwelling Morris catheter ROS All systems reviewed and are negative except as per history of present illness. Medications Home Meds Reported Medications Zinc Sulfate* (Zinc Sulfate*) 220 Mg Tablet, 220 MG GTB DAILY, TAB 05/03/16 Risperidone* (Risperidone*) 0.5 Mg Tablet, 0.5 MG GTB BID, TAB 05/03/16 Bisacodyl* (Bisacodyl*) 10 Mg Supp, 10 MG KY DAILY Y for CONSTIPATION, SUPP 05/03/16 Docusate Sodium* (Docusate Sodium*) 100 Mg Capsule, 100 MG GTB BID, #60 CAP 05/03/16 Albuterol Sulfate* (Albuterol Sulfate* Neb) 0.083%-3 Ml Neb, 2.5 MG NEB Q3H Y for WHEEZING AND SOB, #30 VIAL 05/03/16 Hydrocodone/Acetaminophen ([place] 5-325 Tablet) 1 Each Tablet, 1 EACH GTB Q6, TAB 02/24/16 Multivitamins* (Multi-Delyn* Liq) 473 Ml Liquid, 30 ML PO DAILY, ML 02/24/16 Magnesium Hydroxide* (Milk Of Magnesia*) 400 Mg/5 Ml Oral.susp, 30 ML GTB DAILY Y for CONSTIPATION, ML 04/16/15 Escitalopram Oxalate* (Lexapro*) 10 Mg Tablet, 10 MG GTB DAILY, #30 TAB 04/16/15 Ferrous Sulfate* (Ferrous Sulfate*) 325 Mg Tabec, 330 MG GTB DAILY, TAB 04/16/15 Chlorhexidine Gluconate* (Peridex*) 480 Ml Mouthwash, 15 ML MM Q12, ML 04/16/15 Ascorbic Acid (Vitamin C) 500 Mg Tab, 500 MG GTB DAILY, TAB 04/16/15 Cran/Vitc/Mannose/Inulin/Brom (Uti-Stat Liquid) 3,875 Mg/30 Ml Liquid, 3875 MG GTB DAILY 04/16/15 Acetaminophen* (Tylenol*) 325 Mg Tablet, 650 MG GTB Q4H Y for MILD PAIN LEVEL 1- 3, TAB 04/16/15 Discontinued Reported Medications Risperidone* (Risperidone*) 1 Mg Tablet, 1 MG GTB BID, TAB 02/24/16 Sevelamer Carbonate* (Renvela*) 0.8 Gm Powd.pack, 0.8 GM PO WITH MEALS, PACKET 02/24/16 Calcium Carbonate/Vitamin D3 (OYSTER SHELL 500 MG + VIT D TB) 1 Each Tablet, 1 EACH PO DAILY, TAB 02/24/16 Amlodipine Besylate* (Norvasc*) 5 Mg Tablet, 5 MG GTB DAILY, TAB HOLD FOR SBP BELOW 110, HR BELOW 60 02/24/16 Oxybutynin Chloride* (Ditropan* XL) 5 Mg Tabsr, 5 MG GTB BID, TAB.SA 02/24/16 Citric Acid/Sodium Citrate* (Bicitra* (PEDIATRIC)) 1 Meq/Ml Soln, 5 ML GTB BID for 30 Days, BOTTLE 02/24/16 Lorazepam* (Lorazepam*) 1 Mg Tablet, 1 MG GTB Q6 Y for ANXIETY, #30 TAB 02/24/16 Polyethylene Glycol* (Miralax*) 17 Gm Powd.pack, 17 GM PO QHS, PACKET 04/16/15 Dantrolene Sodium* (Dantrolene Sodium*) 50 Mg Capsule, 50 MG PO BID, CAP 04/16/15 Docusate Sodium* (Colace*) 100 Mg Capsule, 100 MG GTB QHS Y for CONSTIPATION, # 30 CAP 04/16/15 Levalbuterol Hcl* (Levalbuterol Hcl*) 1.25 Mg/3 Ml Vial.neb, 1.25 MG INHALATION Q6H Y for WHEEZING AND SOB, VIAL 04/16/15 Levalbuterol* (Xopenex*) 1.25 Mg/3 Ml Nebu, 1.25 MG NEB Q3H Y for WHEEZING AND SOB, EA 04/16/15 Pantoprazole (Protonix) 40 Mg/Blist Pack Suspdr.pkt, 40 MG GTB DAILY, PACKET 04/16/15 Allergies Allergies: Coded Allergies: No Known Allergy (Unverified , 04/16/15) PMhx/Soc History of Surgery: Yes Anesthesia Reaction: No Hx Neurological Disorder: Yes (Cervical spine injury w/ paraplegia, neurogenic bladder, epilepsy) Hx Respiratory Disorders: Yes (Trach dependent, pneumonia) Hx Cardiac Disorders: No Hx Psychiatric Problems: Yes (Depression, bipolar, psychosis) Hx Miscellaneous Medical Probl: Yes (pls see EMR) Hx Alcohol Use: No Hx Substance Use: No Hx Tobacco Use: No Smoking Status: Never smoker Physical Exam Vitals Vital Signs Date Time Temp Pulse Resp B/P Pulse Ox O2 Delivery O2 Flow Rate FiO2 05/03/16 12:39 88 18 98/72 Mechanical Ventilator 05/03/16 10:16 112 25 100 40 05/03/16 09:58 99.1 105 17 101/65 94 Physical Exam Constitutional:Well-developed. Debilitated cachectic male HEENT:Normocephalic. Atraumatic.Pupils were equal round reactive to light. Moist mucous membranes.No tonsillar exudates. Neck: No nuchal rigidity. No lymphadenopathy. No posterior cervical spine tenderness or step-offs. Tracheostomy site is clean dry and intact. Trach cuff blown. Respiratory: Not using accessory muscles of respiration.Lungs were clear to auscultation bilaterally on mechanical ventilation. No rhonchi. No rales. No wheezing. Cardiovascular: Regular rate regular rhythm.No murmurs. No rubs were appreciated.S1, S2 normal. Distal pulses are palpable 1+ bilaterally. GI: Abdomen was soft. Nontender. Non Distended. No pulsatile abdominal masses or bruits. No rebound. No guarding. Bowel sounds were present and normal. G- tube in place with no surrounding erythema warmth tenderness fluctuance or induration Muscle skeletal: Muscle atrophy of the bilateral lower extremities patient is paralyzed from the waist down with atrophy of the bilateral lower extremities Skin: No petechia, no purpura. No lesions on the palms or the soles of the feet. No maculopapular rash. Stage II cocaine use also of the left foot. Stage III decubitus ulcers. Pain not out of proportion to physical exam per NEURO: Patient was alert, awake, orientated x3. Gait not observed as patient is nonambulatory due to paralysis. It is difficult for the patient to articulate given that he has a trach however he will answer questions appropriately. Result Diagram: 05/03/16 1025 05/03/16 1025 Results 24 hrs Laboratory Tests Test 05/03/16 10:25 05/03/16 12:40 White Blood Count 5.410^3/ul Red Blood Count 2.9910^6/ul Hemoglobin 9.2g/dl Hematocrit 29.0% Mean Corpuscular Volume 97.0fl Mean Corpuscular Hemoglobin 30.8pg Mean Corpuscular Hemoglobin Concent 31.7g/dl Red Cell Distribution Width 15.4% Platelet Count 76843^3/UL Mean Platelet Volume 10.0fl Neutrophils % 80.0% Band Neutrophils % 1.0% Lymphocytes % 11.0% Monocytes % 7.0% Eosinophils % 1.0% Neutrophils # 4.310^3/ul Lymphocytes # 0.610^3/ul Monocytes # 0.410^3/ul Eosinophils # 0.110^3/ul Prothrombin Time 14.5Sec Prothrombin Time Ratio 1.1 INR International Normalized Ratio 1.13 Activated Partial Thromboplast Time 34.2Sec Sodium Level 140mmol/L Potassium Level 4.4mmol/L Chloride Level 110mmol/L Carbon Dioxide Level 17mmol/L Anion Gap 17 Blood Urea Nitrogen 131mg/dl Creatinine 3.13mg/dl Glucose Level 114mg/dl Lactic Acid Level 0.9mmol/L Calcium Level 9.3mg/dl Total Bilirubin 0.0mg/dl Direct Bilirubin 0.00mg/dl Indirect Bilirubin 0.0mg/dl Aspartate Amino Transf (AST/SGOT) 18IU/L Alanine Aminotransferase (ALT/SGPT) 31IU/L Alkaline Phosphatase 198IU/L Troponin I < 0.012ng/ml Total Protein 8.4g/dl Albumin 4.0g/dl Globulin 4.40g/dl Albumin/Globulin Ratio 0.90 Amylase Level 51U/L Lipase 210U/L Urine Color DK. YELLOW Urine Clarity SLIGHTLY CLOUDY Urine pH 8.5 Urine Specific [place] 1.010 Urine Ketones NEGATIVE Urine Nitrite POSITIVE Urine Bilirubin NEGATIVE Urine Urobilinogen 0.2 E.U./dL Urine Leukocyte Esterase 3+ Urine Microscopic RBC 10-25/HPF Urine Microscopic WBC 10-25/HPF Urine Epithelial Cells FEW Urine Triple Phosphate Crystals FEW Urine Bacteria FEW Urine Hemoglobin 3+ Urine Glucose NEGATIVE% Urine Total Protein 2+ Current Medications Medications (Trade) Dose Ordered Sig/Dwain Route PRN Reason Start Time Stop Time Status Last Admin Dose Admin Morphine Sulfate (morphine) 4 mg ONCE STAT IV 05/03/16 11:03 05/03/16 11:04 DC 05/03/16 11:14 Ondansetron HCl (Zofran Inj) 4 mg ONCE STAT IV 05/03/16 11:03 05/03/16 11:04 DC 05/03/16 11:14 Ondansetron HCl (Zofran Inj) 4 mg ER BRIDGE PRN IV NAUSEA AND/OR VOMITING 05/03/16 12:30 05/04/16 12:29 Acetaminophen (Tylenol Tab) 650 mg ER BRIDGE PRN PO MILD PAIN/FEVER 05/03/16 12:30 05/04/16 12:29 Hydromorphone HCl (Dilaudid) 1 mg ONCE STAT IV 05/03/16 14:03 05/03/16 14:11 DC 05/03/16 14:16 Ondansetron HCl 4 mg 4 mg ONCE STAT IV 05/03/16 14:03 05/03/16 14:11 DC 05/03/16 14:15 Vancomycin HCl 250 ml @ 125 mls/hr ONCE STAT IVPB 05/03/16 14:08 05/03/16 16:07 Cefepime HCl 50 ml @ 100 mls/hr ONCE STAT IVPB 05/03/16 14:08 05/03/16 14:37 Sodium Chloride (NS) 1,000 ml @ 1,000 mls/hr Q1H STAT IV 05/03/16 14:12 05/03/16 15:11 Procedures/MDM This patient presented to the emergency department with new onset renal failure. Given that the patient had a BUN greater than 100 the patient will likely require emergent hemodialysis due to failed outpatient treatment for prerenal azotemia. The patient had been given IV fluids. The patient was placed on his vent with the settings from [facility]. Chest radiograph showed no evidence of pneumonia. The patient did have a urinary tract infection and was given IV vancomycin and cefepime after blood cultures and urine cultures have been obtained. Dr. Barker kindly came to the bedside and will be consulted from a nephrology perspective. Dr. Barreto will be the admitting physician. 12 Lead EKG tracing ordered and reviewed by myself showed: Normal sinus rhythm of 95 bpm and no arrhythmia. KY interval normal. QRS duration normal. No ST segment elevation No ST segment depression. No changes consistent with acute ischemia. Departure Diagnosis: Primary Impression: Renal failure Additional Impression: Urinary tract infection Qualified Code: T83.511S - Urinary tract infection associated with indwelling urethral catheter, sequela Condition: Serious ADRIANA MONSON May 03, 2016 14:03
[2016-05-03] MEDS ORDERED: VANCOMYCIN 1 GM (PMX) 250 ML IVPB STA (14:08)
[2016-05-03] MEDS ORDERED: CEFEPIME 2GM/50 ML (PMX) 50 ML IVPB STA (14:08)
[2016-05-03] MEDS ORDERED: SOD CHLORIDE 0.9% 1,000 ML IV STA (14:12)
[2016-05-03] MEDS ORDERED: VANCOMYCIN IV PER PHARMACY XX SCH (16:00)
--- NOTE | 2016-05-03 16:08 | HP ---
DATE OF ADMISSION: 05/03/2016 CHIEF COMPLAINT: The patient brought from [facility] via ambulance due to elevation o f BUN and creatinine. HISTORY OF PRESENT ILLNESS: The patient is a 40-year-old gentleman with history of cervical spine i njury with paraplegia, ventilator-dependent respiratory failure with tracheostomy, history of chroni c kidney disease, history of dysphagia with G-tube, sacral decubitus, history of sepsis and pneumoni a in the past. The patient currently is awake, alert and able to answer basic questions. The patie nt also was tolerating p.o. diet at [facility]. The patient with known chronic kidney disease and on previous admission with creatinine about 1.59 and BUN of 47. The patient was noted to have significantly elevated BUN and creatinine on routine labs at [facility] and p atient was sent for further evaluation and management to [facility]. On evaluatio n in the emergency room, the patient's BUN was 131 and creatinine 3.1. The patient also has a supra pubic catheter with history of neurogenic bladder. The patient's urinalysis was indicative of urina ry tract infection. The patient had a low-grade fever of 99.1, tachycardia and hypotension on admis tha. After blood cultures and urine cultures were collected, the patient was started on vancomycin and cefepime and patient will be admitted for further evaluation and management. PAST MEDICAL HISTORY: Per HPI. PAST SURGICAL HISTORY: Status post tracheostomy, status post G-tube placement and status post supra pubic catheter placement. SOCIAL HISTORY: The patient is a resident of a [facility] facility. There is no current tobac co use, illicit drug use or alcohol noted. ALLERGIES: NO KNOWN ALLERGIES. MEDICATIONS ON ADMISSION: 1. Zinc sulfate. 2. Risperidone. 3. Bisacodyl. 4. Colace. 5. Albuterol. 6. [place]. 7. Multivitamins. 8. Milk of magnesia. 9. Lexapro. 10. Ferrous sulfate. 11. Peridex. 12. Vitamin C. 13. Uristat. 14. Tylenol. REVIEW OF SYSTEMS: A 12-point review of systems is negative unless what mentioned in the HPI. PHYSICAL ASSESSMENT: GENERAL: Well-developed, debilitated, cachectic male currently is awake, alert, follows immediate c ommands. VITAL SIGNS: Temperature is 99.1, pulse is 82, blood pressure is 104/88, respiratory rate 19, oxyge n saturation is 99% on 40% FIO2 via ventilator. HEENT: Head is atraumatic, normocephalic. Pupils equal, round, reactive to light and accommodation . Oral mucosa is pink and moist. NECK: Supple. There is a tracheostomy at the base of the neck with no bleeding. LUNGS: The patient has scattered rhonchi bilaterally, slightly diminished at the bases. There is n o wheezing noted. CARDIOVASCULAR: Normal S1, S2. No murmurs, gallops, clicks, rubs noted. The patient is slightly t achycardic. ABDOMEN: Flat, soft, nondistended, nontender. G-tube with intact stoma. The patient also has a rocha prapubic catheter with intact stoma. EXTREMITIES: Contracted. SKIN: The patient has sacral ulcers present on admission. There is no rash, petechiae noted. NEUROLOGIC: The patient is awake, alert and oriented, following immediate commands, with paraplegia . LABORATORY DATA: On admission, CBC: White blood cells 5.4, hemoglobin 9.2, hematocrit 29.0, platel ets 210. Chemistry: Sodium is 140, potassium 4.4, chloride 110, carbon dioxide 17, anion gap 17, B UN is 131, creatinine 3.13. AST is 18, ALT 31, alkaline phosphatase 198. Troponin less than 0.012. Lipase is 210, amylase is 51. IMAGING: Chest x-ray with no evidence of acute cardiopulmonary disease. ASSESSMENT AND PLAN: 1. Urinary tract infection per UA. 2. Acute kidney injury on top of chronic kidney disease. Dr. Barker will be following the patient i n nephrology consultation. Continue patient on broad-spectrum antibiotics. Follow up on urine and blood cultures. 3. Ventilator-dependent respiratory failure with tracheostomy. Dr. Ames will be following patient i n pulmonary consultation. Continue bronchodilators and ventilatory support. 4. Multiple decubitus ulcers present on admission. We will obtain wound care. Continue zinc sulfa te, multivitamins and offloading and current wound care. 5. Cervical spine injury with paraplegia. 6. Bipolar disorder with psychosis. Continue patient on risperidone b.i.d. and Lexapro. 7. Iron deficiency anemia. Continue patient on iron supplements. 8. Neurogenic bladder with suprapubic catheter. 9. Dysphagia with PEG. 10. Continue Lovenox for deep venous thrombosis prophylaxis and Protonix for peptic ulcer disease p rophylaxis. Further recommendations based on clinical course. Plan of care discussed with Dr. Mirza. Dictated By: AISSATOU DUNCAN LEARNING [employer]UTIONS SPECIALIST for JOSÉ ANTONIO MIRZA MD SR/NTS Conf#: [id number] DID#: [id number]
[2016-05-03] MEDS: DEXTROSE 5% 1,000 ML IV SCH (17:59)
[2016-05-03] MEDS: HYDROmorphONE 1 MG/ML SYG IV PRN (19:27)
[2016-05-03 19:32] VITALS: TEMP 97.8
[2016-05-03 20:14] LABS: PROTEIN/CREAT RATIO 8.65 RATIO
[2016-05-03] MEDS: CEFEPIME 1GM/50 ML (PMX) 50 ML IVPB SCH (23:08)
[2016-05-04] VITALS (15 sets, daily range): BP systolic 79–115; BP diastolic 57–75; PULSE 85–125; RESP 17–33
[2016-05-04] MEDS: DEXTROSE 5% 1,000 ML IV SCH ×2 (04:27→16:22)
[2016-05-04] MEDS: PANTOPRAZOLE (EC) 40 MG TAB PO SCH (05:35)
[2016-05-04 05:39] LABS: ADD SCAN DIFF NO
[2016-05-04] MEDS: HYDROmorphONE 1 MG/ML SYG IV PRN ×4 (05:39→19:59)
[2016-05-04 05:42] LABS: ABNORMAL IP MESSAGE 1; BASOPHILS % 0.2 % (0.0-2.0); EOSINOPHILS # 0.2 10^3/ul (0.0-0.5); EOSINOPHILS % 3.5 % (0.0-7.0); HEMATOCRIT 29.5 % (42.0-52.0); LYMPHOCYTES # 0.4 10^3/ul (0.8-2.9); LYMPHOCYTES % 8.2 % (15.0-51.0); MEAN CORPUSCULAR HEMOGLOBIN 30.6 pg (29.0-33.0); MEAN CORPUSCULAR HGB CONC 30.5 g/dl (32.0-37.0); MEAN CORPUSCULAR VOLUME 100.3 fl (82.0-101.0); MEAN PLATELET VOLUME 10.1 fl (7.4-10.4); MONOCYTE # 0.4 10^3/ul (0.3-0.9); NEUTROPHIL # 4.1 10^3/ul (1.6-7.5); NEUTROPHILS % 79.7 % (39.0-77.0); PLATELET COUNT 172 10^3/UL (140-415); RED BLOOD COUNT 2.94 10^6/ul (4.70-6.10); RED CELL DISTRIBUTION WIDTH 15.5 % (11.5-14.5); WHITE BLOOD COUNT 5.2 10^3/ul (4.8-10.8)
[2016-05-04 05:51] LABS: POTASSIUM 4.6 mmol/L (3.5-5.1)
[2016-05-04 05:53] LABS: CREATININE 2.82 mg/dl (0.61-1.24)
[2016-05-04 05:55] LABS: URIC ACID 6.4 mg/dl (3.1-7.9)
--- NOTE | 2016-05-04 08:46 | CONS ---
DATE OF ADMISSION: 05/03/2016 DATE OF CONSULTATION: 05/03/2016 TYPE OF CONSULTATION: Nephrology REFERRING PHYSICIAN: Hitesh Barreto MD REASON FOR CONSULTATION: Acute uremia with a BUN of 135. HISTORY OF PRESENT ILLNESS: This is a 40-year-old male who has a past medical history of cervical s pine injury with resultant paraplegia, status post tracheostomy on ventilator, ventilator-dependent respiratory failure through a tracheostomy, history of a neurogenic bladder with a suprapubic cathet er, history of previous recurrent urinary tract infections, history of depression, bipolar disorder and psychosis. 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 His primary care physician is Dr. Hitesh Barreto, who asked me to see this patient in nephrology consultation at the [facility] unit where he had a BUN of 115. At that time, he was given D5W 2 liters of IV fluids and had followup labs done on Monday, which revealed his BUN persistently high. He was se nt to [facility] emergency room and he is noted to have a BUN of 131, creatin ine 3.1. His potassium was normal but the bicarbonate was 17. At the time of my evaluation, he was hemodynamically stable except the blood pressure was running on the lower side, 97/70. His heart r ate was up to 88 to 112. He is on a mechanical ventilator with FIO2 of 40%. Dr. Barreto is admitt ing him to the telemetry floor and renal has been consulted because of acute uremia with a BUN of 13 1. REVIEW OF SYSTEMS: Unable to obtain from the patient since he is ventilator-dependent respiratory f ailure. PAST MEDICAL HISTORY: 1. History of cervical spine injury with paraplegia status post tracheostomy, vent-dependent, neuro genic bladder, status post suprapubic catheter. 2. History of recurrent UTIs. 3. 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 4. History of depression. 5. Bipolar disorder. 6. Psychosis. PAST SURGICAL HISTORY: History of a surgery for cervical spine injury, history of suprapubic cathet er placement, history of tracheostomy. 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 His primary care physician is Dr. Barreto over there. PHYSICAL EXAMINATION: VITAL SIGNS: Temperature 99.1, heart rate 65, respirations 19, blood pressure 97/70, saturation is 100% on FIO2 of 40%. GENERAL: Awake, alert, nonverbal, noncommunicative. HEENT: Pupils equal, round, reactive to light and accommodation. Extraocular muscles are intact. NECK: Supple. Tracheostomy site is clear. No discharge. LUNGS: Bilateral coarse breath sounds. HEART: S1, S2, with regular rhythm, no murmur. ABDOMEN: Soft, nontender, nondistended. Bowel sounds are present. The patient has a suprapubic ca theter in place. EXTREMITIES: No clubbing, cyanosis, or edema. NEUROLOGICAL: Nonfocal, intact. Uncooperative for exam due to his other comorbidities and vent-dep endent respiratory failure. SKIN: The patient has pressure ulcer x2 on skin assessment on admission. PSYCHIATRIC: Unable to assess, but he knows his depression screening is negative. LABORATORY DATA/DIAGNOSTIC IMAGIN. Sodium 140, potassium 4.4, chloride 110, bicarbonate 17, BUN 131, creatinine 3.1, glucose 114, c alcium 9.3, albumin is 4. LFTs are normal. Alkaline phosphatase 198. Amylase 51, lipase 210. 2. Prothrombin time 14.5, PTT 34.2, INR 1.1. 3. WBC 5.4, hemoglobin 9.2, platelet count 210. 4. Urinalysis shows positive nitrite, 3+ hemoglobin, 2+ total protein. IMPRESSION: This is a 40-year-old male with: 1. Acute kidney injury secondary to severe prerenal azotemia and possible acute tubular necrosis fr om sepsis secondary to urinary tract infection. 2. Acute uremia with a BUN of 131. 3. Metabolic acidosis due to the worsening renal failure. 4. Urinary tract infection with urinalysis positive for nitrites. 5. History of cervical spine injury resulting in paraplegia, status post tracheostomy, on chronic r espiratory failure ventilator-dependent. 6. History of neurogenic bladder with urinary retention, status post suprapubic catheter. 7. History of previous recurrent urinary tract infections. 8. 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 9. 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 10. Other medical history includes anxiety, depression, bipolar disorder, psychosis. 11. History of right nephrectomy with left renal nephrolithiasis and a left renal cyst measuring 5. 3 cm in size. PLAN: 1. Thank you, Dr. Barreto, for this consultation. The patient was evaluated in the emergency room . I will order the patient's urine studies including urine sodium, urine protein-creatinine ratio a nd urine eosinophils. 2. CK total with uric acid has been ordered for a.m. labs. 3. IV antibiotics as per primary care team. 4. I will start the patient on IV fluids D5W at 100 mL/hour and will follow up on the patient's BUN and creatinine in the a.m. labs. I am expecting his BUN and creatinine to improve with IV fluid hy dration with D5W. His total calculated free water deficit is more than 4.5 liters. 5. The patient had a renal ultrasound done on the last admission on 02/27/2016 which revealed multi ple left renal cysts with the largest measuring 5.3 cm with internal echogenic debris, increased lef t renal cortical echogenicity consistent with medical renal disease, multiple left renal calculi, st atus post right nephrectomy. 6. We will followup on the patient's course in the hospital while on IV fluids and further plans wi ll depend on the patient's course in the hospital. Once again, thank you, Dr. Barreto, for this consultation and I will continue to follow this patien t along with you. Total time spent in this patient's evaluation making assessment and plan, communicating with the nicolás rgency room nursing staff and also with the floor nursing staff took more than 90 minutes and more t [place] 50% of time spent in education. Dictated By: TIARA CISNEROS MD, KP/QUE Conf#: [id number] DID#: [id number]
[2016-05-04] MEDS: ENOXAPARIN 30 MG/0.3 ML SYG SC SCH (09:00)
[2016-05-04] MEDS ORDERED: DOXYCYCLINE 100 MG TAB PO ONE (10:00)
--- NOTE | 2016-05-04 10:12 | CONS ---
Date/Time of Note Date/Time of Note DATE: 05/04/16 TIME: 10:10 Assessment/Plan Assessment/Plan Additional Assessment/Plan 1. Acute kidney injury secondary to severe prerenal azotemia and possible acute tubular necrosis from sepsis secondary to urinary tract infection. 2. Acute uremia with a BUN of 131. 3. Metabolic acidosis due to the worsening renal failure. 4. Urinary tract infection with urinalysis positive for nitrites. 5. 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 6. History of neurogenic bladder with urinary retention, status post suprapubic catheter. 7. History of previous recurrent urinary tract infections. 8. 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 9. 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 10. Other medical history includes anxiety, depression, bipolar disorder, psychosis. 11. History of right nephrectomy with left renal nephrolithiasis and a left renal cyst measuring 5.3 cm in size. PLAN: BUN/Cr improving with IVF D5W, BP stable, afebrile, pt only has left kidney in place, with stone in in left kidney and left renal cyst 5.3cm, in size no evidence of hematuria BP stable will follow up plan is to continue IVF D5 W Consultation Date/Type/Reason Admit Date/Time 05/03/2016 Initial Consult Date 05/03/2016 Type of Consultation: NEPHROLOGY Reason for Consultation Acute Kidney injury with uremia BUN 135, metabolic acidosis, Referring Provider: JOSÉ ANTONIO MIRZA MD 24 HR Interval Summary Free Text/Dictation BUN/Cr slightly improving with IVF D5W, afebrile, BP stable, pt non verbal Exam/Review of Systems Vital Signs Vitals Vital Signs Date Time Temp Pulse Resp B/P Pulse Ox O2 Delivery O2 Flow Rate FiO2 05/04/16 06:30 80 16 102/69 05/04/16 05:54 100 40 05/03/16 19:32 97.8 Mechanical Ventilator Intake and Output 05/03/16 05/03/16 05/04/16 15:00 23:00 07:00 Intake Total 1000 ml Output Total 1300 ml 1200 ml Balance -1300 ml -200 ml Exam GENERAL: Awake, alert, nonverbal, noncommunicative. HEENT: Pupils equal, round, reactive to light and accommodation. Extraocular muscles are intact. NECK: Supple. Tracheostomy site is clear. No discharge. LUNGS: Bilateral coarse breath sounds. HEART: S1, S2, with regular rhythm, no murmur. ABDOMEN: Soft, nontender, nondistended. Bowel sounds are present. The patient has a suprapubic catheter in place. EXTREMITIES: No clubbing, cyanosis, or edema. NEUROLOGICAL: Nonfocal, intact. Uncooperative for exam due to his other comorbidities and vent-dependent respiratory failure. SKIN: The patient has pressure ulcer on admission. Results Result Diagram: 05/04/16 0530 05/04/16 0530 Results 24 hrs Laboratory Tests Test 05/03/16 10:25 05/03/16 12:40 05/04/16 05:30 White Blood Count 5.4 5.2 Red Blood Count 2.99 L 2.94 L Hemoglobin 9.2 L 9.0 L Hematocrit 29.0 L 29.5 L Mean Corpuscular Volume 97.0 100.3 Mean Corpuscular Hemoglobin 30.8 30.6 Mean Corpuscular Hemoglobin Concent 31.7 L 30.5 L Red Cell Distribution Width 15.4 H 15.5 H Platelet Count 210 172 Mean Platelet Volume 10.0 10.1 Neutrophils % 80.0 H 79.7 H Band Neutrophils % 1.0 Lymphocytes % 11.0 L 8.2 L Monocytes % 7.0 8.0 Eosinophils % 1.0 3.5 Neutrophils # 4.3 4.1 Lymphocytes # 0.6 L 0.4 L Monocytes # 0.4 0.4 Eosinophils # 0.1 0.2 Prothrombin Time 14.5 H Prothrombin Time Ratio 1.1 INR International Normalized Ratio 1.13 Activated Partial Thromboplast Time 34.2 Sodium Level 140 143 Potassium Level 4.4 4.6 Chloride Level 110 113 H Carbon Dioxide Level 17 L 18 L Anion Gap 17 H 17 H Blood Urea Nitrogen 131 H 120 H Creatinine 3.13 H 2.82 H Glucose Level 114 120 Lactic Acid Level 0.9 Calcium Level 9.3 9.0 Total Bilirubin 0.0 L Direct Bilirubin 0.00 Indirect Bilirubin 0.0 Aspartate Amino Transf (AST/SGOT) 18 Alanine Aminotransferase (ALT/SGPT) 31 Alkaline Phosphatase 198 H Troponin I < 0.012 Total Protein 8.4 H Albumin 4.0 Globulin 4.40 H Albumin/Globulin Ratio 0.90 Amylase Level 51 Lipase 210 Urine Color DK. YELLOW Urine Clarity SLIGHTLY CLOUDY Urine pH 8.5 Urine Specific [place] 1.010 Urine Ketones NEGATIVE Urine Nitrite POSITIVE H Urine Bilirubin NEGATIVE Urine Urobilinogen 0.2 E.U./dL Urine Leukocyte Esterase 3+ H Urine Microscopic RBC 10-25 Urine Microscopic WBC 10-25 Urine Epithelial Cells FEW Urine Triple Phosphate Crystals FEW Urine Bacteria FEW Urine Eosinophils % 0.0 Urine Hemoglobin 3+ H Urine Random Creatinine 20.00 Urine Random Sodium 45 Urine Protein/Creatinine Ratio 8.65 Urine Glucose NEGATIVE Urine Total Protein 173.0 H Basophils % 0.2 Nucleated Red Blood Cells % 0.0 Basophils # 0.0 Nucleated Red Blood Cells # 0.0 Uric Acid 6.4 Creatine Kinase 24 Medications Medications Current Medications Enoxaparin Sodium (Lovenox) 30 mg DAILY SC ; Start 05/04/16 at 09:00 Pantoprazole 40 mg 40 mg DAILY@06 PO Last administered on 05/04/16 05:35; Admin Dose 40 MG; Start 05/04/16 at 06:00 Cefepime HCl 50 ml @ 100 mls/hr Q12 IVPB Last administered on 05/03/16 23:08 ; Admin Dose 100 MLS/HR; Start 05/03/16 at 23:00 Dextrose (D5W) 1,000 ml @ 100 mls/hr Q10H IV Last administered on 05/04/16 04 :27; Admin Dose 100 MLS/HR; Start 05/03/16 at 17:30 Hydromorphone HCl 1 mg 1 mg Q4 PRN IV SEVERE PAIN LEVEL 7-10 Last administered on 05/04/16 05:39; Admin Dose 1 MG; Start 05/03/16 at 18:30 Vancomycin HCl (Vancocin) 250 ml @ 125 mls/hr Q48H IVPB ; Start 05/05/16 at 15: 00 TIARA CISNEROS MD May 04, 2016 10:12
[2016-05-04] MEDS: CEFEPIME 1GM/50 ML (PMX) 50 ML IVPB SCH ×2 (10:55→21:20)
[2016-05-04] MEDS: CITRIC ACID/NA CITRATE 30 ML CUP PO SCH ×2 (11:20→23:12)
[2016-05-04] MEDS ORDERED: VANCOMYCIN 750 MG in SOD CHLORIDE 0.9% 150 ML IVPB SCH (12:00)
--- NOTE | 2016-05-04 16:20 | PN ---
Date/Time of Note Date/Time of Note DATE: 05/04/16 TIME: 16:15 Assessment/Plan VTE Prophylaxis VTE Prophylaxis Intervention: SCD's Lines/Catheters Urinary Cath still in place: Yes Reason Cath still needed: urinary retention Assessment/Plan Chief Complaint/Hosp Course ASSESSMENT AND PLAN: 1. GNR Urinary tract infection per UA. Continue patient on broad-spectrum antibiotics. Dr. Maciel will be following patient in infection disease consultation. 2. Acute kidney injury on top of chronic kidney disease. Dr. Barker is following the patient in nephrology consultation. 3. Ventilator-dependent respiratory failure with tracheostomy. Dr. Ames is following patient in pulmonary consultation. Continue bronchodilators and ventilatory support. 4. Multiple decubitus ulcers present on admission. Wound care consult pending. Continue zinc sulfate, multivitamins and offloading and current wound care. 5. Cervical spine injury with paraplegia. 6. Bipolar disorder with psychosis. Continue patient on risperidone b.i.d. and Lexapro. 7. Iron deficiency anemia. Continue patient on iron supplements. 8. Neurogenic bladder with suprapubic catheter. 9. Dysphagia with PEG. Continue Lovenox for deep venous thrombosis prophylaxis and Protonix for peptic ulcer disease prophylaxis. Further recommendations based on clinical course. Plan of care discussed with Dr. Barreto. Problems: Subjective 24 Hr Interval Summary Free Text/Dictation Patient is awake alert, follow immediate commands, upset regarding still being in the emergency room,remains afebrile. Exam/Review of Systems Vital Signs Vitals Vital Signs Date Time Temp Pulse Resp B/P Pulse Ox O2 Delivery O2 Flow Rate FiO2 05/04/16 11:00 103 25 98 40 05/04/16 10:30 102/73 05/03/16 19:32 97.8 Mechanical Ventilator Intake and Output 05/03/16 05/03/16 05/04/16 15:00 23:00 07:00 Intake Total 1000 ml Output Total 1300 ml 1200 ml Balance -1300 ml -200 ml Exam PHYSICAL ASSESSMENT: GENERAL: Well-developed, debilitated, cachectic male currently is awake, alert , follows immediate commands. HEENT: Head is atraumatic, normocephalic. PERRLA. NECK: Supple. There is a tracheostomy at the base of the neck with no bleeding. LUNGS: The patient has scattered rhonchi bilaterally, slightly diminished at the bases. There is no wheezing noted. CARDIOVASCULAR: Normal S1, S2. No murmurs, gallops, clicks, rubs noted. The patient is slightly tachycardic. ABDOMEN: Flat, soft, nondistended, nontender. G-tube with intact stoma. The patient also has a suprapubic catheter with intact stoma. EXTREMITIES: Contracted. SKIN: The patient has sacral ulcers present on admission. There is no rash, petechiae noted. NEUROLOGIC: The patient is awake, alert and oriented, following immediate commands, with paraplegia. Results Result Diagram: 05/04/16 0530 05/04/16 0530 Results 24 hrs Laboratory Tests Test 05/04/16 05:30 White Blood Count 5.2 Red Blood Count 2.94 L Hemoglobin 9.0 L Hematocrit 29.5 L Mean Corpuscular Volume 100.3 Mean Corpuscular Hemoglobin 30.6 Mean Corpuscular Hemoglobin Concent 30.5 L Red Cell Distribution Width 15.5 H Platelet Count 172 Mean Platelet Volume 10.1 Neutrophils % 79.7 H Lymphocytes % 8.2 L Monocytes % 8.0 Eosinophils % 3.5 Basophils % 0.2 Nucleated Red Blood Cells % 0.0 Neutrophils # 4.1 Lymphocytes # 0.4 L Monocytes # 0.4 Eosinophils # 0.2 Basophils # 0.0 Nucleated Red Blood Cells # 0.0 Sodium Level 143 Potassium Level 4.6 Chloride Level 113 H Carbon Dioxide Level 18 L Anion Gap 17 H Blood Urea Nitrogen 120 H Creatinine 2.82 H Glucose Level 120 Uric Acid 6.4 Calcium Level 9.0 Creatine Kinase 24 Medications Medications Current Medications Enoxaparin Sodium (Lovenox) 30 mg DAILY SC ; Start 05/04/16 at 09:00 Pantoprazole 40 mg 40 mg DAILY@06 PO Last administered on 05/04/16 05:35; Admin Dose 40 MG; Start 05/04/16 at 06:00 Cefepime HCl 50 ml @ 100 mls/hr Q12 IVPB Last administered on 05/04/16 10:55 ; Admin Dose 100 MLS/HR; Start 05/03/16 at 23:00 Dextrose (D5W) 1,000 ml @ 100 mls/hr Q10H IV Last administered on 05/04/16 04 :27; Admin Dose 100 MLS/HR; Start 05/03/16 at 17:30 Hydromorphone HCl 1 mg 1 mg Q4 PRN IV SEVERE PAIN LEVEL 7-10 Last administered on 05/04/16 16:08; Admin Dose 1 MG; Start 05/03/16 at 18:30 Vancomycin HCl (Vancocin) 250 ml @ 125 mls/hr Q48H IVPB ; Start 05/05/16 at 15: 00; Status Future Hold Citric Acid/ Sodium Citrate (Bicitra) 30 ml TID PO Last administered on 11:20; Admin Dose 30 ML; Start 05/04/16 at 13:00 Miscellaneous Information (*Rx Drug Level Order Reminder*) RANDOM VANCO ON 3 30 AM..... ONCE ONCE XX ; Start 05/05/16 at 05:00; Stop 05/05/16 at 05:01 AISSATOU DUNCAN May 04, 2016 16:20
--- NOTE | 2016-05-04 17:18 | CONS ---
DATE OF ADMISSION: 05/03/2016 DATE OF CONSULTATION: 05/04/2016 TYPE OF CONSULTATION: Infectious disease. REASON FOR CONSULTATION: Antibiotic management. HISTORY OF PRESENT ILLNESS: Moses Haddad is a 40-year-old male with a history of cervical spine in jury and paraplegia who comes in from the intermediate with elevated BUN and creatinine. His past p roblems include: 1. Ventilator-dependent respiratory failure with tracheostomy secondary to cervical spine injury wi th paraplegia. 2. Chronic renal disease. 3. Dysphagia status post G-tube placement. 4. Sacral decubitus. 5. History of sepsis and pneumonia in the past. Patient is alert, awake, able to answer questions. He has chronic renal disease on previous admissi on with creatinine 1.59, BUN of 47. Patient was sent in for further evaluation and management to [facility]. In the ER, BUN and creatinine is 131/3.1. He also has a suprapubic cat heter with history of neurogenic bladder. Urinalysis indicative of urinary tract infection. He had a low grade fever of 99.1, tachycardia and hypotension on admission. Blood cultures and urine cult ures were collected. The patient was started on vancomycin and cefepime and was admitted for furthe r evaluation. PAST MEDICAL HISTORY: Operations as outlined. FAMILY HISTORY: Noncontributory. SOCIAL HISTORY: He does not smoke, drink or abuse drugs. [facility]. ALLERGIES: NONE TO PENICILLIN, SULFA OR FOODS. MEDICATIONS: Per chart. REVIEW OF SYSTEMS: As per HPI. PHYSICAL EXAMINATION: GENERAL: The patient is a middle-aged cachectic male who is alert, awake and responsive, in no acut e distress. VITAL SIGNS: Stable. He is afebrile, T-max was 99.1. He has a trach, a PEG and suprapubic cathete r. SKIN: Without generalized rash. He has a sacral ulcer. HEENT: Within normal limits. NECK: Supple. Tracheostomy in place. LYMPH NODES: None palpable. CHEST: Scattered rhonchi bilaterally. HEART: Without murmur or gallop. ABDOMEN: Soft, nontender. G-tube in place without organosplenomegaly or masses. He has a suprapub ic catheter with intact stoma. EXTREMITIES: Without cyanosis, clubbing, or edema. He has contractures. RECTAL AND GENITAL: Deferred. NEUROLOGIC: He is alert, responsive but paraplegic in no acute distress. ANCILLARY LABORATORY DATA: White count is 5.4, H and H 9.2 and 29, platelet count 210,000. BUN and creatinine 131/3.13. Lipase to 210, amylase 51. Chest x-ray: No evidence of acute cardiopulmonar y disease. IMPRESSION AND PLAN: Patient has urine which is positive for nitrites and 3+ leukocyte esterase, 10 to 25 white cells per high-power field. BUN and creatinine today is 120/2.82. Chest x-ray: No acute cardiopulmonary disease. The patient was started on vancomycin and cefepime. We will await the results of the cultures and then tailor his antibiotic management accordingly. It seems as if he has a urinary tract infection with gram negative rods and possibly septic shock. I will dictate my findings to Dr. Barreto and Dr. Kevin Barker. Dictated By: ANTONELLA STEWART MD, JD/QUE Conf#: [id number] DID#: [id number]
[2016-05-04 21:58] LABS: AADO2 Arterial 169.9 mmHg (7.0-24.0); Allen Test ACCEPTAB; Arterial Base Excess -11.6 mmol/L (-3.0-3); Arterial COHb 0.3 % (0.0-3.0); Arterial Fraction of Oxyhgb 93.7 % (93.0-99.0); Arterial MetHb 0.4 % (0.0-1.5); Arterial Total Hemglobin 10.1 g/dl (12.0-18.0); Blood Gas Mean Airway Pressure 11; MODE VENT - AC
[2016-05-05] VITALS (50 sets, daily range): BP systolic 69–121; BP diastolic 45–86; PULSE 81–114; RESP 14–44
[2016-05-05] MEDS: SODIUM BICARBONATE (IV ADD) 100 MEQ in DEXTROSE 5% 900 ML IV SCH ×4 (00:01→23:08)
[2016-05-05] MEDS: HYDROmorphONE 1 MG/ML SYG IV PRN ×6 (00:09→20:41)
[2016-05-05] MEDS: PANTOPRAZOLE (EC) 40 MG TAB PO SCH (05:37)
[2016-05-05 05:41] LABS: ADD SCAN DIFF NO
[2016-05-05 05:55] LABS: ABNORMAL IP MESSAGE 1; BASOPHILS % 0.1 % (0.0-2.0); EOSINOPHILS # 0.1 10^3/ul (0.0-0.5); EOSINOPHILS % 0.7 % (0.0-7.0); HEMATOCRIT 27.1 % (42.0-52.0); HEMOGLOBIN 8.4 g/dl (14.0-18.0); LYMPHOCYTES # 0.6 10^3/ul (0.8-2.9); LYMPHOCYTES % 4.8 % (15.0-51.0); MEAN CORPUSCULAR HEMOGLOBIN 30.3 pg (29.0-33.0); MEAN CORPUSCULAR VOLUME 97.8 fl (82.0-101.0); MEAN PLATELET VOLUME 10.3 fl (7.4-10.4); MONOCYTE # 0.8 10^3/ul (0.3-0.9); MONOCYTES % 6.3 % (0.0-11.0); NEUTROPHIL # 10.8 10^3/ul (1.6-7.5); NEUTROPHILS % 87.8 % (39.0-77.0); PLATELET COUNT 191 10^3/UL (140-415); RED BLOOD COUNT 2.77 10^6/ul (4.70-6.10); RED CELL DISTRIBUTION WIDTH 15.7 % (11.5-14.5); WHITE BLOOD COUNT 12.3 10^3/ul (4.8-10.8)
[2016-05-05 06:05] LABS: POTASSIUM 3.9 mmol/L (3.5-5.1)
[2016-05-05 06:08] LABS: CREATININE 2.54 mg/dl (0.61-1.24)
[2016-05-05 06:09] LABS: CALCIUM 8.7 mg/dl (8.4-10.2)
[2016-05-05] MEDS ORDERED: VANCOMYCIN 1 GM in NS 250 ML IVPB ONE (08:00)
[2016-05-05 08:12] LABS: AADO2 Arterial 143.8 mmHg (7.0-24.0); Allen Test ACCEPTAB; Arterial Base Excess -8.7 mmol/L (-3.0-3); Arterial COHb 0.3 % (0.0-3.0); Arterial MetHb 0.2 % (0.0-1.5); Arterial Total Hemglobin 9.3 g/dl (12.0-18.0); MODE VENT - AC
--- NOTE | 2016-05-05 08:23 | PN ---
Date/Time of Note Date/Time of Note DATE: 05/05/16 TIME: 08:18 Assessment/Plan VTE Prophylaxis VTE Prophylaxis Intervention: SCD's Lines/Catheters IV Catheter Type (from Nrs): Peripheral IV Urinary Cath still in place: No (SUPRAPUBIC CATHETER) Assessment/Plan Assessment/Plan 1. GNR Urinary tract infection per UA. Continue patient on broad-spectrum antibiotics. Dr. Maciel will be following patient in infection disease consultation. 2. Acute kidney injury on top of chronic kidney disease. Dr. Barker is following the patient in nephrology consultation. 3. Ventilator-dependent respiratory failure with tracheostomy. Dr. Ames is following patient in pulmonary consultation. Continue bronchodilators and ventilatory support. 4. Multiple decubitus ulcers present on admission. Wound care consult pending. Continue zinc sulfate, multivitamins and offloading and current wound care. 5. Cervical spine injury with paraplegia. 6. Bipolar disorder with psychosis. Continue patient on risperidone b.i.d. and Lexapro. 7. Iron deficiency anemia. Continue patient on iron supplements. 8. Neurogenic bladder with suprapubic catheter. 9. Dysphagia with PEG. - aspiration precaution Continue Lovenox for deep venous thrombosis prophylaxis and Protonix for peptic ulcer disease prophylaxis. Further recommendations based on clinical course. Total critical care time spent is 35 mins. Plan of care discussed with Dr. Barreto. Subjective 24 Hr Interval Summary Free Text/Dictation NAD, patient is awake, alert, able to talk in full sentences. c/o bilateral leg pain, dw staff Constitutional: requiring IVF, requiring O2 Eyes: no complaints ENT: no complaints Respiratory: no complaints Cardiovascular: no complaints Gastrointestinal: no complaints Genitourinary: no complaints Musculoskeletal: other (bilateral leg pain) Skin: no complaints Neurologic: no complaints Endocrine: no complaints Lymphatic: no complaints Psychological: no complaints Immunologic: no complaints Exam/Review of Systems Vital Signs Vitals Vital Signs Date Time Temp Pulse Resp B/P Pulse Ox O2 Delivery O2 Flow Rate FiO2 05/05/16 06:00 89 17 88/59 96 Mechanical Ventilator 05/05/16 05:12 40 05/05/16 04:00 97.9 Intake and Output 05/04/16 05/04/16 05/05/16 15:00 23:00 07:00 Intake Total 600 ml 600 ml Output Total 1300 ml 585 ml Balance -700 ml 15 ml Exam Constitutional: alert, oriented Psych: no complaints Eyes: EOMI, PERRL, nl sclera ENMT: nl external ears & nose Neck: non-tender Respiratory: diminished breath sounds Cardiovascular: nl pulses Gastrointestinal: non-tender, soft Genitourinary - Male: other Musculoskeletal: muscle weakness Extremities: normal pulses Neurological: other Skin: other Lymph: nontender Results Result Diagram: 05/05/16 0500 05/05/16 0500 Results 24 hrs Laboratory Tests Test 05/04/16 22:00 05/05/16 05:00 05/05/16 07:00 Blood Gas Specimen Source Blood arterial Blood arterial Arterial Blood Date Drawn 05/04/2016 9:43:44 PM 05/05/2016 7:21:21 AM Arterial Blood pH (Temp corrected) 7.234 *L 7.345 L Arterial Blood pCO2 (Temp correct) 36.3 29.9 L Arterial Blood pO2 (Temp corrected) 73.6 L 107.0 H Arterial Blood HCO3 15.0 L 16.0 L Arterial Blood Base Excess -11.6 L -8.7 L Arterial Blood Oxygen Saturation 94.4 L 97.5 Julito Test ACCEPTAB ACCEPTAB Arterial Blood Gas Puncture Site Right Radial Right Radial Arterial Blood Carboxyhemoglobin 0.3 0.3 Arterial Blood Methemoglobin 0.4 0.2 Blood Gas A-a O2 Differential 169.9 H 143.8 H Oxyhemoglobin Percent 93.7 97.0 Total Hemoglobin 10.1 L 9.3 L Blood Gas Temperature 37.0 37.0 Blood Gas Respiration Rate 14.0 14.0 Blood Gas Actual Respiration Rate 23 38 Blood Gas Modality VENT - AC VENT - AC FiO2 40.0 40.0 Blood Gas Tidal Volume 550.0 550.0 Blood Gas Mean Airway Pressure 11 Blood Gas Low PEEP Setting 5.0 5.0 Blood Gas Inspiratory Pressure 40.0 Blood Gas Critical Value Read Back Ranjan DAMON R.N. Blood Gas Notified Whom Billy BAER Blood Gas Notified Time 05/04/2016 9:58:12 PM 05/05/2016 8:12:20 AM White Blood Count 12.3 #H Red Blood Count 2.77 L Hemoglobin 8.4 L Hematocrit 27.1 L Mean Corpuscular Volume 97.8 Mean Corpuscular Hemoglobin 30.3 Mean Corpuscular Hemoglobin Concent 31.0 L Red Cell Distribution Width 15.7 H Platelet Count 191 Mean Platelet Volume 10.3 Neutrophils % 87.8 H Lymphocytes % 4.8 L Monocytes % 6.3 Eosinophils % 0.7 Basophils % 0.1 Nucleated Red Blood Cells % 0.0 Neutrophils # 10.8 H Lymphocytes # 0.6 L Monocytes # 0.8 Eosinophils # 0.1 Basophils # 0.0 Nucleated Red Blood Cells # 0.0 Sodium Level 138 Potassium Level 3.9 Chloride Level 109 Carbon Dioxide Level 18 L Anion Gap 15 Blood Urea Nitrogen 99 H Creatinine 2.54 H Glucose Level 109 Calcium Level 8.7 Random Vancomycin Level 8.0 Medications Medications Current Medications Enoxaparin Sodium (Lovenox) 30 mg DAILY SC ; Start 05/04/16 at 09:00 Pantoprazole 40 mg 40 mg DAILY@06 PO Last administered on 05/04/16 05:35; Admin Dose 40 MG; Start 05/04/16 at 06:00 Cefepime HCl (Maxipime 1gm/50 ml (Pmx)) 50 ml @ 100 mls/hr Q12 IVPB Last administered on 05/04/16 21:20; Admin Dose 100 MLS/HR; Start 05/03/16 at 23:00 Hydromorphone HCl 1 mg 1 mg Q4 PRN IV SEVERE PAIN LEVEL 7-10 Last administered on 05/05/16 04:23; Admin Dose 1 MG; Start 05/03/16 at 18:30 Vancomycin HCl (Vancocin) 250 ml @ 125 mls/hr Q48H IVPB ; Start 05/05/16 at 15: 00; Status Future Hold Citric Acid/ Sodium Citrate 30 ml 30 ml TID PO Last administered on 05/04/16 23:12; Admin Dose 30 ML; Start 05/04/16 at 13:00 Sodium Bicarbonate 100 meq/Dextrose 1,000 ml @ 100 mls/hr Q10H IV Last administered on 05/05/16 00:01; Admin Dose 100 MLS/HR; Start 05/04/16 at 23:00 Vancomycin HCl (Vancocin) 250 ml @ 125 mls/hr ONCE ONCE IVPB ; Start 05/05/16 at 08:00; Stop 05/05/16 at 09:59 NAE VELAZCO May 05, 2016 08:23
[2016-05-05] MEDS: CEFEPIME 1GM/50 ML (PMX) 50 ML IVPB SCH ×2 (08:32→20:41)
[2016-05-05] MEDS: CITRIC ACID/NA CITRATE 30 ML CUP PO SCH ×3 (08:32→20:41)
[2016-05-05] MEDS: ENOXAPARIN 30 MG/0.3 ML SYG SC SCH (08:57)
--- NOTE | 2016-05-05 09:09 | CONS ---
Date/Time of Note Date/Time of Note DATE: 05/05/16 TIME: 09:04 Assessment/Plan Assessment/Plan Additional Assessment/Plan Ventilator settings; AC of 14, tidal volume 550, PEEP of 5, 40% FiO2. Chest x-ray was reviewed from the of this month which is essentially clear. Assessment and recommendations; 1. Patient admitted for UTI and sepsis. Currently on appropriate antibiotic regimen. 2. Chronic respiratory failure. Due to quadriplegia. 3. Chronic renal insufficiency. Continue current treatment. Further antibiotic adjustment to be done once urine culture results are obtained. Consultation Date/Type/Reason Admit Date/Time 05/03/2016 Date of Consultation: May 05, 2016 Type of Consultation: Pulmonary/critical care Reason for Consultation Pulmonary consultations requested for evaluation and treatment of chronic respiratory failure. Patient admitted for UTI and sepsis. History presenting; patient is a 40-year-old white male who was admitted yesterday transferred over from group home with complaints of being mildly hypotensive and running low-grade fever. Upon evaluation here patient was diagnosed with UTI with sepsis. Has been admitted to ICU. He has been fluid resuscitated and started on broad-spectrum antibiotic coverage. Patient despite having a tracheostomy is completely awake alert and is able to talk. Denies any shortness of breath. Any fever, chills. Any abdominal pain, nausea vomiting. Past medical history; 1. Patient with a history of quadriplegia due to wrestling injury. 2. Status post G-tube placement. 3. Chronic renal insufficiency. Patient has a suprapubic catheter. 4. Stage II sacral decubitus ulcers. 5. Depression. 6. Anemia. Medications; were reviewed. Allergies; are none. Social history; noncontributory. Family history; noncontributory. Occupational history; patient on disability. Review of systems; denies any headache, seizures. Any difficulty swallowing. Any odynophagia. Any chest pain, shortness of breath. Any cough. Any sputum production. Any abdominal pain, nausea, vomiting. General exam; young male, on ventilator via tracheostomy, awake and alert. Able to talk. Constitutional: requiring IVF, requiring O2 Eyes: no complaints ENT: no complaints Respiratory: no complaints Cardiovascular: no complaints Gastrointestinal: no complaints Genitourinary: no complaints Musculoskeletal: other (bilateral leg pain) Skin: no complaints Neurologic: no complaints Endocrine: no complaints Lymphatic: no complaints Psychological: no complaints Immunologic: no complaints Social History Smoking Status: Never smoker Exam/Review of Systems Vital Signs Vitals Vital Signs Date Time Temp Pulse Resp B/P Pulse Ox O2 Delivery O2 Flow Rate FiO2 05/05/16 08:00 87 05/05/16 06:00 17 88/59 96 Mechanical Ventilator 05/05/16 05:12 40 05/05/16 04:00 97.9 Intake and Output 05/04/16 05/04/16 05/05/16 15:00 23:00 07:00 Intake Total 600 ml 600 ml Output Total 1300 ml 585 ml Balance -700 ml 15 ml Exam HEENT exam is; supple neck, no JVD. No lymphadenopathy. Midline trachea. No thyromegaly. Tracheostomy in place with clean insertion site. Pupils are midsize and reactive to light. Patient does have multiple carious teeth. Chest examination; clear to auscultation bilaterally. S1-S2 audible, no murmurs. Regular rhythm. Abdomen examination; soft, no organomegaly. G-tube in place. Suprapubic catheter in place multiple well-healed scars are present. Bowel sounds audible. Back examination; reveals dressing applied over sacrum. Extremity examination; no peripheral edema. 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 Able to move upper extremities to a very limited extent. Has severe muscular wasting involving all 4 extremities. Patient is awake alert able to talk. Results Result Diagram: 05/05/16 0500 05/05/16 0500 Results 24 hrs Laboratory Tests Test 05/04/16 22:00 05/05/16 05:00 05/05/16 07:00 Blood Gas Specimen Source Blood arterial Blood arterial Arterial Blood Date Drawn 05/04/2016 9:43:44 PM 05/05/2016 7:21:21 AM Arterial Blood pH (Temp corrected) 7.234 *L 7.345 L Arterial Blood pCO2 (Temp correct) 36.3 29.9 L Arterial Blood pO2 (Temp corrected) 73.6 L 107.0 H Arterial Blood HCO3 15.0 L 16.0 L Arterial Blood Base Excess -11.6 L -8.7 L Arterial Blood Oxygen Saturation 94.4 L 97.5 Julito Test ACCEPTAB ACCEPTAB Arterial Blood Gas Puncture Site Right Radial Right Radial Arterial Blood Carboxyhemoglobin 0.3 0.3 Arterial Blood Methemoglobin 0.4 0.2 Blood Gas A-a O2 Differential 169.9 H 143.8 H Oxyhemoglobin Percent 93.7 97.0 Total Hemoglobin 10.1 L 9.3 L Blood Gas Temperature 37.0 37.0 Blood Gas Respiration Rate 14.0 14.0 Blood Gas Actual Respiration Rate 23 38 Blood Gas Modality VENT - AC VENT - AC FiO2 40.0 40.0 Blood Gas Tidal Volume 550.0 550.0 Blood Gas Mean Airway Pressure 11 Blood Gas Low PEEP Setting 5.0 5.0 Blood Gas Inspiratory Pressure 40.0 Blood Gas Critical Value Read Back Ranjan DAMON R.N. Blood Gas Notified Whom Billy BAER Blood Gas Notified Time 05/04/2016 9:58:12 PM 05/05/2016 8:12:20 AM White Blood Count 12.3 #H Red Blood Count 2.77 L Hemoglobin 8.4 L Hematocrit 27.1 L Mean Corpuscular Volume 97.8 Mean Corpuscular Hemoglobin 30.3 Mean Corpuscular Hemoglobin Concent 31.0 L Red Cell Distribution Width 15.7 H Platelet Count 191 Mean Platelet Volume 10.3 Neutrophils % 87.8 H Lymphocytes % 4.8 L Monocytes % 6.3 Eosinophils % 0.7 Basophils % 0.1 Nucleated Red Blood Cells % 0.0 Neutrophils # 10.8 H Lymphocytes # 0.6 L Monocytes # 0.8 Eosinophils # 0.1 Basophils # 0.0 Nucleated Red Blood Cells # 0.0 Sodium Level 138 Potassium Level 3.9 Chloride Level 109 Carbon Dioxide Level 18 L Anion Gap 15 Blood Urea Nitrogen 99 H Creatinine 2.54 H Glucose Level 109 Calcium Level 8.7 Random Vancomycin Level 8.0 Medications Medications Current Medications Enoxaparin Sodium (Lovenox) 30 mg DAILY SC Last administered on 05/05/16 08:57 ; Admin Dose 30 MG; Start 05/04/16 at 09:00 Pantoprazole 40 mg 40 mg DAILY@06 PO Last administered on 05/04/16 05:35; Admin Dose 40 MG; Start 05/04/16 at 06:00 Cefepime HCl (Maxipime 1gm/50 ml (Pmx)) 50 ml @ 100 mls/hr Q12 IVPB Last administered on 05/05/16 08:32; Admin Dose 100 MLS/HR; Start 05/03/16 at 23:00 Hydromorphone HCl 1 mg 1 mg Q4 PRN IV SEVERE PAIN LEVEL 7-10 Last administered on 05/05/16 08:33; Admin Dose 1 MG; Start 05/03/16 at 18:30 Vancomycin HCl (Vancocin) 250 ml @ 125 mls/hr Q48H IVPB ; Start 05/05/16 at 15: 00; Status Future Hold Citric Acid/ Sodium Citrate 30 ml 30 ml TID PO Last administered on 05/05/16 08:32; Admin Dose 30 ML; Start 05/04/16 at 13:00 Sodium Bicarbonate 100 meq/Dextrose 1,000 ml @ 100 mls/hr Q10H IV Last administered on 05/05/16 00:01; Admin Dose 100 MLS/HR; Start 05/04/16 at 23:00 Vancomycin HCl 250 ml @ 125 mls/hr ONCE ONCE IVPB ; Start 05/05/16 at 08:00; Stop 05/05/16 at 09:59 Norepinephrine/ Dextrose (Levophed/D5W) 500 ml @ 1.87 mls/hr TITRATE IV ; Start 05/05/16 at 09:00 [place] May 05, 2016 09:09
--- NOTE | 2016-05-05 10:43 | CONS ---
Date/Time of Note Date/Time of Note DATE: 05/05/16 TIME: 10:40 Assessment/Plan Assessment/Plan Additional Assessment/Plan 1. Acute kidney injury secondary to severe prerenal azotemia and possible acute tubular necrosis from sepsis secondary to urinary tract infection. 2. Acute uremia with a BUN of 131.- slowly improving with D5W 3. Metabolic acidosis due to the worsening renal failure. 4. Urinary tract infection with urinalysis positive for nitrites. on IV abx 5. 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 6. History of neurogenic bladder with urinary retention, status post suprapubic catheter. 7. History of previous recurrent urinary tract infections. 8. 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 9. 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 10. Other medical history includes anxiety, depression, bipolar disorder, psychosis. 11. History of right nephrectomy with left renal nephrolithiasis and a left renal cyst measuring 5.3 cm in size. PLAN: BUN/Cr improving with IVF D5W, continue bicarbonate drip due to severe acidosis , will follow up on labs pt only has left kidney in place, with stone in in left kidney and left renal cyst 5.3cm, in size no evidence of hematuria ECHO ordered to be read by guitar instructor will follow up Consultation Date/Type/Reason Admit Date/Time Initial Consult Date 05/03/2016 Type of Consultation: NEPHROLOGY Reason for Consultation Acute kidney injury, severe uremia, metabolic acidosis Referring Provider: JOSÉ ANTONIO MIRZA MD 24 HR Interval Summary Free Text/Dictation HCO3 dropped, started on D5W with sodium bicarbonate, BP drops so started on levophed Exam/Review of Systems Vital Signs Vitals Vital Signs Date Time Temp Pulse Resp B/P Pulse Ox O2 Delivery O2 Flow Rate FiO2 05/05/16 09:00 92 44 95 40 05/05/16 06:00 88/59 Mechanical Ventilator 05/05/16 04:00 97.9 Intake and Output 05/04/16 05/04/16 05/05/16 15:00 23:00 07:00 Intake Total 600 ml 600 ml Output Total 1300 ml 585 ml Balance -700 ml 15 ml Exam GENERAL: Awake, alert, nonverbal, noncommunicative. HEENT: Pupils equal, round, reactive to light and accommodation. Extraocular muscles are intact. NECK: Supple. Tracheostomy site is clear. No discharge. LUNGS: Bilateral coarse breath sounds. HEART: S1, S2, with regular rhythm, no murmur. ABDOMEN: Soft, nontender, nondistended. Bowel sounds are present. The patient has a suprapubic catheter in place. EXTREMITIES: No clubbing, cyanosis, or edema. NEUROLOGICAL: Nonfocal, intact. Uncooperative for exam due to his other comorbidities and vent-dependent respiratory failure. SKIN: The patient has pressure ulcer on admission. Results Result Diagram: 05/05/16 0500 05/05/16 0500 Results 24 hrs Laboratory Tests Test 05/04/16 22:00 05/05/16 05:00 05/05/16 07:00 Blood Gas Specimen Source Blood arterial Blood arterial Arterial Blood Date Drawn 05/04/2016 9:43:44 PM 05/05/2016 7:21:21 AM Arterial Blood pH (Temp corrected) 7.234 *L 7.345 L Arterial Blood pCO2 (Temp correct) 36.3 29.9 L Arterial Blood pO2 (Temp corrected) 73.6 L 107.0 H Arterial Blood HCO3 15.0 L 16.0 L Arterial Blood Base Excess -11.6 L -8.7 L Arterial Blood Oxygen Saturation 94.4 L 97.5 Julito Test ACCEPTAB ACCEPTAB Arterial Blood Gas Puncture Site Right Radial Right Radial Arterial Blood Carboxyhemoglobin 0.3 0.3 Arterial Blood Methemoglobin 0.4 0.2 Blood Gas A-a O2 Differential 169.9 H 143.8 H Oxyhemoglobin Percent 93.7 97.0 Total Hemoglobin 10.1 L 9.3 L Blood Gas Temperature 37.0 37.0 Blood Gas Respiration Rate 14.0 14.0 Blood Gas Actual Respiration Rate 23 38 Blood Gas Modality VENT - AC VENT - AC FiO2 40.0 40.0 Blood Gas Tidal Volume 550.0 550.0 Blood Gas Mean Airway Pressure 11 Blood Gas Low PEEP Setting 5.0 5.0 Blood Gas Inspiratory Pressure 40.0 Blood Gas Critical Value Read Back Ranjan DAMON R.N. Blood Gas Notified Whom Billy BAER Blood Gas Notified Time 05/04/2016 9:58:12 PM 05/05/2016 8:12:20 AM White Blood Count 12.3 #H Red Blood Count 2.77 L Hemoglobin 8.4 L Hematocrit 27.1 L Mean Corpuscular Volume 97.8 Mean Corpuscular Hemoglobin 30.3 Mean Corpuscular Hemoglobin Concent 31.0 L Red Cell Distribution Width 15.7 H Platelet Count 191 Mean Platelet Volume 10.3 Neutrophils % 87.8 H Lymphocytes % 4.8 L Monocytes % 6.3 Eosinophils % 0.7 Basophils % 0.1 Nucleated Red Blood Cells % 0.0 Neutrophils # 10.8 H Lymphocytes # 0.6 L Monocytes # 0.8 Eosinophils # 0.1 Basophils # 0.0 Nucleated Red Blood Cells # 0.0 Sodium Level 138 Potassium Level 3.9 Chloride Level 109 Carbon Dioxide Level 18 L Anion Gap 15 Blood Urea Nitrogen 99 H Creatinine 2.54 H Glucose Level 109 Calcium Level 8.7 Random Vancomycin Level 8.0 Medications Medications Current Medications Enoxaparin Sodium (Lovenox) 30 mg DAILY SC Last administered on 05/05/16 08:57 ; Admin Dose 30 MG; Start 05/04/16 at 09:00 Pantoprazole 40 mg 40 mg DAILY@06 PO Last administered on 05/04/16 05:35; Admin Dose 40 MG; Start 05/04/16 at 06:00 Cefepime HCl (Maxipime 1gm/50 ml (Pmx)) 50 ml @ 100 mls/hr Q12 IVPB Last administered on 05/05/16 08:32; Admin Dose 100 MLS/HR; Start 05/03/16 at 23:00 Hydromorphone HCl (Dilaudid) 1 mg Q4 PRN IV SEVERE PAIN LEVEL 7-10 Last administered on 05/05/16 08:33; Admin Dose 1 MG; Start 05/03/16 at 18:30 Citric Acid/ Sodium Citrate 30 ml 30 ml TID PO Last administered on 05/05/16 08:32; Admin Dose 30 ML; Start 05/04/16 at 13:00 Sodium Bicarbonate 100 meq/Dextrose 1,000 ml @ 100 mls/hr Q10H IV Last administered on 05/05/16 00:01; Admin Dose 100 MLS/HR; Start 05/04/16 at 23:00 Norepinephrine 16 mg/Dextrose 500 ml @ 1.87 mls/hr TITRATE IV Last administered on 05/05/16 09:24; Admin Dose 18.75 MLS/HR; Start 3/30/17 at 09: 00 Vancomycin HCl (Vancocin) 250 ml @ 125 mls/hr Q48H IVPB ; Start 05/07/16 at 10: 00 TIARA CISNEROS MD May 05, 2016 10:43
[2016-05-05] MEDS ORDERED: VANCOMYCIN IV PER PHARMACY XX SCH (11:30)
--- NOTE | 2016-05-05 11:31 | PN ---
DATE: 05/05/2016 INFECTIOUS DISEASE PROGRESS NOTE SUBJECTIVE: The patient remained stable overnight. He is still on Levophed at 5 mcg per minute, bu t alert, awake, and follows commands. No fevers. WBC today 12.3, platelets 191, neutrophils 87.8, BUN 99, creatinine 2.54. MICROBIOLOGY: Blood culture negative. Urine culture growing gram-negative rods and Staphylococcus aureus. INDWELLINGS: Trach, PEG and suprapubic catheter. ANTIMICROBIALS: The patient is on: 1. IV vancomycin. 2. IV Cefepime. DIAGNOSTICS: Chest x-ray on admission revealed no evidence of acute cardiopulmonary disease. PHYSICAL EXAMINATION: GENERAL: This is a chronically ill-appearing, middle-aged white man, who is lying comfortably in be d. HEENT: Head atraumatic, normocephalic. Sclerae anicteric. Buccal mucosa pink. NECK: Supple. Tracheostomy present. CHEST: Chest rise is symmetrical. Breath sounds diminished to the bases. HEART: S1, S2. ABDOMEN: Soft. Bowel tones present. EXTREMITIES: Wasted, contractured. ASSESSMENT 1. Recurrent sepsis with shock. 2. Polymicrobial urinary tract infection. 3. Quadriplegia secondary to C-spine injury. 4. Neurogenic bladder, with a suprapubic catheter. 5. Acute on chronic kidney disease. 6. History of right nephrectomy. PLAN: The patient remains hemodynamically unstable, although staff was able to titrate Levophed ermias n. He is clinically stable. He is on IV cefepime, which we will continue. He is also getting vanc omycin and growing Staphylococcus aureus in his urine. We will continue both of his antibiotics. A wait for final cultures. Continue titrating Levophed down. Dictated By: REGINALDO CHERY RIPENING ROOM HAND for ANTONELLA STEWART MD NI/NTS Conf#: [id number] DID#: [id number]
[2016-05-05] MEDS: GABAPENTIN (50 MG/ML PO SYG) GTB SCH ×2 (13:00→20:43)
[2016-05-05] MEDS ORDERED: VANCOMYCIN 1 GM in NS 250 ML IVPB SCH (15:00)
[2016-05-05] MEDS ORDERED: LIDOCAINE 1% (MDV) 20 ML INJ SC SCH (16:00)
--- NOTE | 2016-05-05 16:53 | CONS ---
Date/Time of Note Date/Time of Note DATE: 05/05/16 TIME: 16:45 Assessment/Plan Assessment/Plan Additional Assessment/Plan Acute kidney injury Hypotension, improved Sepsis Respiratory Failure Preserved EF on echocardiogram March 02, 2016 History of intermittent Mobitz I -Patient with episode of hypotension this morning and also after receiving IV Dilaudid. Likely an element of hypovolemia, narcotics and sepsis contributing ( white cell count is rising). Blood pressure has improved and is currently off IV pressor. IV fluids as per our nephrology colleagues and if needed, consider fluid boluses. Withhold any antihypertensive medications. Would consider adjusting pain medication regimen if recurrent hypotension and might need restarting of IV pressor if sepsis does not improve. Consultation Date/Type/Reason Admit Date/Time Type of Consultation: cv Reason for Consultation Hypotension Hx of Present Illness This is a 40-year-old male with history of spinal fracture with paralysis, hypertension, intermittent Mobitz type I, respiratory failure was transferred from nursing facility secondary to worsening chemistry panel. Patient admitted and found to be in acute kidney injury as well as UTI. Patient receiving antibiotics and IV fluids. Morning, patient with hypotension as low as the 80s systolic. Patient was asymptomatic. Discussion with the nurse, this happened after receiving Dilaudid. Patient is on frequent doses of Dilaudid and also request as needed as well because of lower extremity pain. He was started on levo fed for a brief period of time, and is currently off. He denies any chest pain, shortness of breath, palpitations, dizziness or lightheadedness. He does continue to complain of lower extremity pain which is been chronic. 12 point review of systems was performed with all pertinent positives and negatives mentioned above and all else is negative Constitutional: requiring IVF, requiring O2 Eyes: no complaints ENT: no complaints Respiratory: no complaints Cardiovascular: no complaints Gastrointestinal: no complaints Genitourinary: no complaints Musculoskeletal: other (bilateral leg pain) Skin: no complaints Neurologic: no complaints Endocrine: no complaints Lymphatic: no complaints Psychological: no complaints Immunologic: no complaints Past Medical History Respiratory Failure Preserved EF HTN Intermittent Mobitz I Paralysis Past Surgical History Including but not limited to trach, PEG Family History Significant Family History: no pertinent family hx Social History Alcohol Use: none Smoking Status: Never smoker Other Social History From long term facility Exam/Review of Systems Vital Signs Vitals Vital Signs Date Time Temp Pulse Resp B/P Pulse Ox O2 Delivery O2 Flow Rate FiO2 05/05/16 16:00 91 05/05/16 15:00 25 97 40 05/05/16 11:15 95/67 05/05/16 10:15 Mechanical Ventilator Trach Collar 05/05/16 04:00 97.9 Intake and Output 05/04/16 05/04/16 05/05/16 15:00 23:00 07:00 Intake Total 600 ml 600 ml Output Total 1300 ml 685 ml Balance -700 ml -85 ml Exam Follows commands, no apparent distress Constitutional: alert, frail, oriented Head: normocephalic Neck: other (Tracheostomy) Respiratory: other (Coarse breath sounds bilaterally, no wheezing) Cardiovascular: other (S1-S2 heard), regular rate and rhythm Gastrointestinal: bowel sounds, non-tender, other (No guarding), soft Extremities: other (No edema or cyanosis) Results Result Diagram: 05/05/16 0500 05/05/16 0500 Results 24 hrs Laboratory Tests Test 05/04/16 22:00 05/05/16 05:00 05/05/16 07:00 Blood Gas Specimen Source Blood arterial Blood arterial Arterial Blood Date Drawn 05/04/2016 9:43:44 PM 05/05/2016 7:21:21 AM Arterial Blood pH (Temp corrected) 7.234 *L 7.345 L Arterial Blood pCO2 (Temp correct) 36.3 29.9 L Arterial Blood pO2 (Temp corrected) 73.6 L 107.0 H Arterial Blood HCO3 15.0 L 16.0 L Arterial Blood Base Excess -11.6 L -8.7 L Arterial Blood Oxygen Saturation 94.4 L 97.5 Julito Test ACCEPTAB ACCEPTAB Arterial Blood Gas Puncture Site Right Radial Right Radial Arterial Blood Carboxyhemoglobin 0.3 0.3 Arterial Blood Methemoglobin 0.4 0.2 Blood Gas A-a O2 Differential 169.9 H 143.8 H Oxyhemoglobin Percent 93.7 97.0 Total Hemoglobin 10.1 L 9.3 L Blood Gas Temperature 37.0 37.0 Blood Gas Respiration Rate 14.0 14.0 Blood Gas Actual Respiration Rate 23 38 Blood Gas Modality VENT - AC VENT - AC FiO2 40.0 40.0 Blood Gas Tidal Volume 550.0 550.0 Blood Gas Mean Airway Pressure 11 Blood Gas Low PEEP Setting 5.0 5.0 Blood Gas Inspiratory Pressure 40.0 Blood Gas Critical Value Read Back Ranjan DAMON R.N. Blood Gas Notified Whom Billy BAER Blood Gas Notified Time 05/04/2016 9:58:12 PM 05/05/2016 8:12:20 AM White Blood Count 12.3 #H Red Blood Count 2.77 L Hemoglobin 8.4 L Hematocrit 27.1 L Mean Corpuscular Volume 97.8 Mean Corpuscular Hemoglobin 30.3 Mean Corpuscular Hemoglobin Concent 31.0 L Red Cell Distribution Width 15.7 H Platelet Count 191 Mean Platelet Volume 10.3 Neutrophils % 87.8 H Lymphocytes % 4.8 L Monocytes % 6.3 Eosinophils % 0.7 Basophils % 0.1 Nucleated Red Blood Cells % 0.0 Neutrophils # 10.8 H Lymphocytes # 0.6 L Monocytes # 0.8 Eosinophils # 0.1 Basophils # 0.0 Nucleated Red Blood Cells # 0.0 Sodium Level 138 Potassium Level 3.9 Chloride Level 109 Carbon Dioxide Level 18 L Anion Gap 15 Blood Urea Nitrogen 99 H Creatinine 2.54 H Glucose Level 109 Calcium Level 8.7 Random Vancomycin Level 8.0 Medications Medications Current Medications Enoxaparin Sodium (Lovenox) 30 mg DAILY SC Last administered on 05/05/16 08:57 ; Admin Dose 30 MG; Start 05/04/16 at 09:00 Pantoprazole 40 mg 40 mg DAILY@06 PO Last administered on 05/04/16 05:35; Admin Dose 40 MG; Start 05/04/16 at 06:00 Cefepime HCl (Maxipime 1gm/50 ml (Pmx)) 50 ml @ 100 mls/hr Q12 IVPB Last administered on 05/05/16 08:32; Admin Dose 100 MLS/HR; Start 05/03/16 at 23:00 Hydromorphone HCl (Dilaudid) 1 mg Q4 PRN IV SEVERE PAIN LEVEL 7-10 Last administered on 05/05/16 16:38; Admin Dose 1 MG; Start 05/03/16 at 18:30 Citric Acid/ Sodium Citrate 30 ml 30 ml TID PO Last administered on 05/05/16 08:32; Admin Dose 30 ML; Start 05/04/16 at 13:00 Sodium Bicarbonate 100 meq/Dextrose 1,000 ml @ 100 mls/hr Q10H IV Last administered on 05/05/16 12:41; Admin Dose 100 MLS/HR; Start 05/04/16 at 23:00 Norepinephrine/ Dextrose (Levophed/D5W) 500 ml @ 1.87 mls/hr TITRATE IV Last administered on 05/05/16 09:24; Admin Dose 18.75 MLS/HR; Start 05/05/16 at 09: 00 Gabapentin 100 mg 100 mg TID GTB Last administered on 05/05/16 13:00; Admin Dose 100 MG; Start 05/05/16 at 13:00 Vancomycin HCl (Vancocin) 250 ml @ 125 mls/hr Q48H IVPB ; Start 05/07/16 at 10: 00 Silver Nitrate (Silver Nitrate Swabs) 1 stick Q7D TOP ; Start 05/05/16 at 16:30 ; Stop 05/12/16 at 16:31 Lidocaine (Xylocaine 1% (Mdv) 20 ml) 20 ml ONCE SC ; Start 05/05/16 at 16:00; Stop 05/06/16 at 15:59 Procedures Procedures ECG demonstrates sinus rhythm at 95 bpm, normal QRS duration, no significant ischemic STT wave abnormalities Deandre Chavez DO May 05, 2016 16:53
[2016-05-05] MEDS: SILVER NITRATE SWAB TOP SCH (18:05)
[2016-05-05] MEDS: ZOLPIDEM 5 MG TAB PO PRN (20:42)
[2016-05-05] MEDS: ALBUTEROL/IPRATROPIUM (NEB) 3 ML AMP HHN PRN (20:57)
[2016-05-06] VITALS (27 sets, daily range): BP systolic 80–131; BP diastolic 43–91; PULSE 69–108; RESP 12–31
[2016-05-06] MEDS: HYDROmorphONE 1 MG/ML SYG IV PRN ×5 (04:10→21:50)
[2016-05-06] MEDS: PANTOPRAZOLE (EC) 40 MG TAB PO SCH (05:03)
[2016-05-06 06:27] LABS: POTASSIUM 3.5 mmol/L (3.5-5.1)
[2016-05-06 06:29] LABS: BILIRUBIN,INDIRECT 0.2 mg/dl (0-1.1); BILIRUBIN,TOTAL 0.2 mg/dl (0.2-1.3); CREATININE 2.33 mg/dl (0.61-1.24)
[2016-05-06 06:30] LABS: ALBUMIN/GLOBULIN RATIO 0.81; CALCIUM 8.5 mg/dl (8.4-10.2); TOTAL PROTEIN 6.7 g/dl (6.1-8.1)
[2016-05-06] MEDS: CITRIC ACID/NA CITRATE 30 ML CUP PO SCH ×3 (09:33→20:40)
[2016-05-06] MEDS: GABAPENTIN (50 MG/ML PO SYG) GTB SCH ×3 (09:34→20:38)
[2016-05-06] MEDS: CEFEPIME 1GM/50 ML (PMX) 50 ML IVPB SCH ×2 (09:34→20:39)
[2016-05-06] MEDS: ENOXAPARIN 30 MG/0.3 ML SYG SC SCH (09:36)
--- NOTE | 2016-05-06 11:00 | CONS ---
Date/Time of Note Date/Time of Note DATE: 05/06/16 TIME: 10:57 Assessment/Plan Assessment/Plan Additional Assessment/Plan 1. Acute kidney injury secondary to severe prerenal azotemia and possible acute tubular necrosis from sepsis secondary to urinary tract infection. 2. Acute uremia with a BUN of 131.- slowly improving with D5W 3. Metabolic acidosis due to the worsening renal failure. 4. Urinary tract infection with urinalysis positive for nitrites. on IV abx 5. 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 6. History of neurogenic bladder with urinary retention, status post suprapubic catheter. 7. History of previous recurrent urinary tract infections. 8. 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 9. 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 10. Other medical history includes anxiety, depression, bipolar disorder, psychosis. 11. History of right nephrectomy with left renal nephrolithiasis and a left renal cyst measuring 5.3 cm in size. PLAN: BUN/Cr improving with IVF D5W, continue bicarbonate drip due to severe acidosis , monitor HCO3 and K pt only has left kidney in place, with stone in in left kidney and left renal cyst 5.3cm, in size no evidence of hematuria Preserved EF on echocardiogram March 02, 2016, software design analyst has been following will follow up Consultation Date/Type/Reason Admit Date/Time Initial Consult Date 05/03/2016 Type of Consultation: NEPHROLOGY Referring Provider: JOSÉ ANTONIO MIRZA MD 24 HR Interval Summary Free Text/Dictation pt BUN/Cr slowly improving wiht IVF with bicarbonate, HCo3 was 18 yesterday today 25- on levophed for BP support Exam/Review of Systems Vital Signs Vitals Vital Signs Date Time Temp Pulse Resp B/P Pulse Ox O2 Delivery O2 Flow Rate FiO2 05/06/16 10:00 74 20 106/72 96 Mechanical Ventilator 05/06/16 08:00 97.5 05/06/16 05:12 40 Intake and Output 05/05/16 05/05/16 05/06/16 15:00 23:00 07:00 Intake Total 1232.49 ml 1441.25 ml 1400 ml Output Total 580 ml 660 ml 825 ml Balance 652.49 ml 781.25 ml 575 ml Exam Follows commands, no apparent distress Constitutional: alert, frail, oriented Head: normocephalic Neck: other (Tracheostomy) Respiratory: other (Coarse breath sounds bilaterally, no wheezing) Cardiovascular: other (S1-S2 heard), regular rate and rhythm Gastrointestinal: bowel sounds, non-tender, other (No guarding), soft Extremities: other (No edema or cyanosis) Results Result Diagram: 05/05/16 0500 05/06/16 0538 Results 24 hrs Laboratory Tests Test 05/06/16 05:38 Sodium Level 139 Potassium Level 3.5 Chloride Level 103 Carbon Dioxide Level 25 Anion Gap 15 Blood Urea Nitrogen 77 H Creatinine 2.33 H Glucose Level 141 Calcium Level 8.5 Total Bilirubin 0.2 Direct Bilirubin 0.00 Indirect Bilirubin 0.2 Aspartate Amino Transf (AST/SGOT) 11 L Alanine Aminotransferase (ALT/SGPT) 27 Alkaline Phosphatase 145 H Total Protein 6.7 Albumin 3.0 L Globulin 3.70 H Albumin/Globulin Ratio 0.81 Medications Medications Current Medications Enoxaparin Sodium (Lovenox) 30 mg DAILY SC Last administered on 05/06/16 09:36 ; Admin Dose 30 MG; Start 05/04/16 at 09:00 Pantoprazole 40 mg 40 mg DAILY@06 PO Last administered on 05/06/16 05:03; Admin Dose 40 MG; Start 05/04/16 at 06:00 Cefepime HCl (Maxipime 1gm/50 ml (Pmx)) 50 ml @ 100 mls/hr Q12 IVPB Last administered on 05/06/16 09:34; Admin Dose 100 MLS/HR; Start 05/03/16 at 23:00 Hydromorphone HCl (Dilaudid) 1 mg Q4 PRN IV SEVERE PAIN LEVEL 7-10 Last administered on 05/06/16 09:33; Admin Dose 1 MG; Start 05/03/16 at 18:30 Citric Acid/ Sodium Citrate 30 ml 30 ml TID PO Last administered on 05/06/16 09:33; Admin Dose 30 ML; Start 05/04/16 at 13:00 Sodium Bicarbonate/ Dextrose (Na Bicarb/D5W) 1,000 ml @ 100 mls/hr Q10H IV Last administered on 05/05/16 23:08; Admin Dose 100 MLS/HR; Start 05/04/16 at 23:00 Gabapentin 100 mg 100 mg TID GTB Last administered on 05/06/16 09:34; Admin Dose 100 MG; Start 05/05/16 at 13:00 Vancomycin HCl (Vancocin) 250 ml @ 125 mls/hr Q48H IVPB ; Start 05/07/16 at 10: 00 Silver Nitrate (Silver Nitrate Swabs) 1 stick Q7D TOP Last administered on 05/05 18:05; Admin Dose 1 STICK; Start 05/05/16 at 16:30; Stop 05/12/16 at 16:31 Lidocaine 20 ml 20 ml ONCE SC ; Start 05/05/16 at 16:00; Stop 05/06/16 at 15:59 Norepinephrine/ Dextrose (Levophed/D5W) 500 ml @ 1.87 mls/hr TITRATE IV ; Start 05/05/16 at 20:00 Zolpidem Tartrate (Ambien) 5 mg HS PRN PO INSOMNIA Last administered on 20:42; Admin Dose 5 MG; Start 05/05/16 at 20:30 TIARA CISNEROS MD May 06, 2016 11:00
--- NOTE | 2016-05-06 11:58 | CONS ---
Date/Time of Note Date/Time of Note DATE: 05/06/16 TIME: 11:56 Assessment/Plan Assessment/Plan Additional Assessment/Plan Acute kidney injury Hypotension, improved Sepsis Respiratory Failure Preserved EF on echocardiogram March 02, 2016 History of intermittent Mobitz I Chronic pain syndrome -Blood pressure trend improved and remains off IV pressor, continue IV fluids as per our nephrology colleagues. No antihypertensives at the current time. Antibiotics as per infectious disease. Consultation Date/Type/Reason Admit Date/Time May 04, 2016 at 12:27 Initial Consult Date 05/05/16 Type of Consultation: cv Referring Provider: JOSÉ ANTONIO MIRZA MD 24 HR Interval Summary Free Text/Dictation Patient denies shortness of breath, dizziness or chest pain. He is requesting more pain medicine Exam/Review of Systems Vital Signs Vitals Vital Signs Date Time Temp Pulse Resp B/P Pulse Ox O2 Delivery O2 Flow Rate FiO2 05/06/16 11:00 82 18 123/74 96 Mechanical Ventilator 05/06/16 10:10 40 05/06/16 08:00 97.5 Intake and Output 05/05/16 05/05/16 05/06/16 15:00 23:00 07:00 Intake Total 1232.49 ml 1441.25 ml 1500 ml Output Total 580 ml 660 ml 825 ml Balance 652.49 ml 781.25 ml 675 ml Exam No apparent distress Constitutional: alert, oriented Head: normocephalic Neck: other (Tracheostomy) Respiratory: other (Coarse breath sounds bilaterally, no wheezing) Cardiovascular: other (S1-S2 heard), regular rate and rhythm Gastrointestinal: bowel sounds, non-tender, other (No guarding), soft Extremities: other (No edema or cyanosis) Results Result Diagram: 05/05/16 0500 05/06/16 0538 Results 24 hrs Laboratory Tests Test 05/06/16 05:38 Sodium Level 139 Potassium Level 3.5 Chloride Level 103 Carbon Dioxide Level 25 Anion Gap 15 Blood Urea Nitrogen 77 H Creatinine 2.33 H Glucose Level 141 Calcium Level 8.5 Total Bilirubin 0.2 Direct Bilirubin 0.00 Indirect Bilirubin 0.2 Aspartate Amino Transf (AST/SGOT) 11 L Alanine Aminotransferase (ALT/SGPT) 27 Alkaline Phosphatase 145 H Total Protein 6.7 Albumin 3.0 L Globulin 3.70 H Albumin/Globulin Ratio 0.81 Medications Medications Current Medications Enoxaparin Sodium (Lovenox) 30 mg DAILY SC Last administered on 05/06/16 09:36 ; Admin Dose 30 MG; Start 05/04/16 at 09:00 Pantoprazole 40 mg 40 mg DAILY@06 PO Last administered on 05/06/16 05:03; Admin Dose 40 MG; Start 05/04/16 at 06:00 Cefepime HCl (Maxipime 1gm/50 ml (Pmx)) 50 ml @ 100 mls/hr Q12 IVPB Last administered on 05/06/16 09:34; Admin Dose 100 MLS/HR; Start 05/03/16 at 23:00 Hydromorphone HCl (Dilaudid) 1 mg Q4 PRN IV SEVERE PAIN LEVEL 7-10 Last administered on 05/06/16 09:33; Admin Dose 1 MG; Start 05/03/16 at 18:30 Citric Acid/ Sodium Citrate 30 ml 30 ml TID PO Last administered on 05/06/16 09:33; Admin Dose 30 ML; Start 05/04/16 at 13:00 Sodium Bicarbonate/ Dextrose (Na Bicarb/D5W) 1,000 ml @ 70 mls/hr [id number] IV Last administered on 05/05/16 23:08; Admin Dose 100 MLS/HR; Start 05/04/16 at 23:00 Gabapentin 100 mg 100 mg TID GTB Last administered on 05/06/16 09:34; Admin Dose 100 MG; Start 05/05/16 at 13:00 Vancomycin HCl (Vancocin) 250 ml @ 125 mls/hr Q48H IVPB ; Start 05/07/16 at 10: 00 Silver Nitrate (Silver Nitrate Swabs) 1 stick Q7D TOP Last administered on 05/05 18:05; Admin Dose 1 STICK; Start 05/05/16 at 16:30; Stop 05/12/16 at 16:31 Lidocaine 20 ml 20 ml ONCE SC ; Start 05/05/16 at 16:00; Stop 05/06/16 at 15:59 Norepinephrine/ Dextrose (Levophed/D5W) 500 ml @ 1.87 mls/hr TITRATE IV ; Start 05/05/16 at 20:00 Zolpidem Tartrate (Ambien) 5 mg HS PRN PO INSOMNIA Last administered on 3/30/ 17at 20:42; Admin Dose 5 MG; Start 05/05/16 at 20:30 Deandre Chavez DO May 06, 2016 11:58
--- NOTE | 2016-05-06 12:28 | PN ---
Date/Time of Note Date/Time of Note DATE: 05/06/16 TIME: 12:27 Assessment/Plan VTE Prophylaxis VTE Prophylaxis Intervention: SCD's Lines/Catheters IV Catheter Type (from Nrs): PICC Line Central line still needed: Yes Urinary Cath still in place: Yes (SUPRAPUBIC CATHETER) Reason Cath still needed: urinary retention Assessment/Plan Chief Complaint/Hosp Course ASSESSMENT AND PLAN: 1. Polymicrobial Urinary tract infection per UA. Continue antibiotics. Dr. Maciel is following patient in infection disease consultation. 2. Acute kidney injury on top of chronic kidney disease. Dr. Barker is following the patient in nephrology consultation. 3. Ventilator-dependent respiratory failure with tracheostomy. is following patient in pulmonary consultation. Continue bronchodilators and ventilatory support. 4. Multiple decubitus ulcers present on admission. Continue zinc sulfate, multivitamins and offloading and current wound care. 5. Cervical spine injury with paraplegia. 6. Bipolar disorder with psychosis. Continue patient on risperidone b.i.d. and Lexapro. 7. Iron deficiency anemia. Continue patient on iron supplements. 8. Neurogenic bladder with suprapubic catheter. 9. Dysphagia with PEG. Continue Lovenox for deep venous thrombosis prophylaxis and Protonix for peptic ulcer disease prophylaxis. Further recommendations based on clinical course. Plan of care discussed with Dr. Barreto. Problems: Subjective 24 Hr Interval Summary Free Text/Dictation Patient weaned off pressor last night, stable now. Exam/Review of Systems Vital Signs Vitals Vital Signs Date Time Temp Pulse Resp B/P Pulse Ox O2 Delivery O2 Flow Rate FiO2 05/06/16 11:00 82 18 123/74 96 Mechanical Ventilator 05/06/16 10:10 40 05/06/16 08:00 97.5 Intake and Output 05/05/16 05/05/16 05/06/16 15:00 23:00 07:00 Intake Total 1232.49 ml 1441.25 ml 1500 ml Output Total 580 ml 660 ml 825 ml Balance 652.49 ml 781.25 ml 675 ml Exam PHYSICAL ASSESSMENT: GENERAL: Well-developed, debilitated, cachectic male currently is awake, alert , follows immediate commands. HEENT: Head is atraumatic, normocephalic. PERRLA. NECK: Supple. There is a tracheostomy at the base of the neck with no bleeding. LUNGS: The patient has scattered rhonchi bilaterally, slightly diminished at the bases. There is no wheezing noted. CARDIOVASCULAR: Normal S1, S2. No murmurs, gallops, clicks, rubs noted. The patient is slightly tachycardic. ABDOMEN: Flat, soft, nondistended, nontender. G-tube with intact stoma. The patient also has a suprapubic catheter with intact stoma. EXTREMITIES: Contracted. SKIN: The patient has sacral ulcers present on admission. There is no rash, petechiae noted. NEUROLOGIC: The patient is awake, alert and oriented, following immediate commands, with paraplegia. Results Result Diagram: 05/05/16 0500 05/06/16 0538 Results 24 hrs Laboratory Tests Test 05/06/16 05:38 Sodium Level 139 Potassium Level 3.5 Chloride Level 103 Carbon Dioxide Level 25 Anion Gap 15 Blood Urea Nitrogen 77 H Creatinine 2.33 H Glucose Level 141 Calcium Level 8.5 Total Bilirubin 0.2 Direct Bilirubin 0.00 Indirect Bilirubin 0.2 Aspartate Amino Transf (AST/SGOT) 11 L Alanine Aminotransferase (ALT/SGPT) 27 Alkaline Phosphatase 145 H Total Protein 6.7 Albumin 3.0 L Globulin 3.70 H Albumin/Globulin Ratio 0.81 Medications Medications Current Medications Enoxaparin Sodium (Lovenox) 30 mg DAILY SC Last administered on 05/06/16 09:36 ; Admin Dose 30 MG; Start 05/04/16 at 09:00 Pantoprazole 40 mg 40 mg DAILY@06 PO Last administered on 05/06/16 05:03; Admin Dose 40 MG; Start 05/04/16 at 06:00 Cefepime HCl (Maxipime 1gm/50 ml (Pmx)) 50 ml @ 100 mls/hr Q12 IVPB Last administered on 05/06/16 09:34; Admin Dose 100 MLS/HR; Start 05/03/16 at 23:00 Hydromorphone HCl (Dilaudid) 1 mg Q4 PRN IV SEVERE PAIN LEVEL 7-10 Last administered on 05/06/16 09:33; Admin Dose 1 MG; Start 05/03/16 at 18:30 Citric Acid/ Sodium Citrate 30 ml 30 ml TID PO Last administered on 05/06/16 09:33; Admin Dose 30 ML; Start 05/04/16 at 13:00 Sodium Bicarbonate/ Dextrose (Na Bicarb/D5W) 1,000 ml @ 70 mls/hr [id number] IV Last administered on 05/05/16 23:08; Admin Dose 100 MLS/HR; Start 05/04/16 at 23:00 Gabapentin 100 mg 100 mg TID GTB Last administered on 05/06/16 09:34; Admin Dose 100 MG; Start 05/05/16 at 13:00 Vancomycin HCl (Vancocin) 250 ml @ 125 mls/hr Q48H IVPB ; Start 05/07/16 at 10: 00 Silver Nitrate (Silver Nitrate Swabs) 1 stick Q7D TOP Last administered on 05/05 18:05; Admin Dose 1 STICK; Start 05/05/16 at 16:30; Stop 05/12/16 at 16:31 Lidocaine 20 ml 20 ml ONCE SC ; Start 05/05/16 at 16:00; Stop 05/06/16 at 15:59 Norepinephrine/ Dextrose (Levophed/D5W) 500 ml @ 1.87 mls/hr TITRATE IV ; Start 05/05/16 at 20:00 Zolpidem Tartrate (Ambien) 5 mg HS PRN PO INSOMNIA Last administered on 20:42; Admin Dose 5 MG; Start 05/05/16 at 20:30 AISSATOU DUNCAN May 06, 2016 12:28 AISSATOU DUNCAN May 06, 2016 12:28
[2016-05-06] MEDS ORDERED: SOD CHLORIDE 0.9% 100 ML ONE (12:50)
[2016-05-06] MEDS: SODIUM BICARBONATE (IV ADD) 100 MEQ in DEXTROSE 5% 900 ML IV SCH (12:55)
[2016-05-06 14:37] LABS: POTASSIUM 3.6 mmol/L (3.5-5.1)
[2016-05-06 14:40] LABS: CALCIUM 7.6 mg/dl (8.4-10.2); CREATININE 1.89 mg/dl (0.61-1.24)
--- NOTE | 2016-05-06 14:41 | RADRPT ---
PROCEDURE: US guidance for PICC line CLINICAL INDICATION: PICC line placement TECHNIQUE: Multiple real-time images were acquired of the patient's arm utilizing a high resolutio n transducer. This was performed by the PICC line nurse for venous access. COMPARISON: None FINDINGS: Ultrasound guidance for PICC line placement. IMPRESSION: Ultrasound guidance for PICC line placement. RPTAT: AA .Carlos Hinds MD, MD Date Time Electronically viewed and signed by .Carlos Hinds MD, on 05/06/2016 14:41 .S/
--- NOTE | 2016-05-06 14:47 | RADRPT ---
PROCEDURE: XR Chest. CLINICAL INDICATION: Check line placement. TECHNIQUE: Single frontal view of the chest was obtained COMPARISON: Chest x-ray 05/03/2016 10:58 a.m. FINDINGS: The soft tissues are normal. There are osteophytes in the thoracic spine with a dextroscoliosis of the mid thoracic spine. The heart is enlarged. The cardiomediastinal silhouette and hilar structur es are normal. The pulmonary vasculature is equilibrated. There is a left-sided aorta. There are rig ht perihilar and right lower lobe infiltrates obscuring the right diaphragm. There is compressive a telectasis in the bases of the lungs with plate-like atelectasis adjacent to the left diaphragm. A tracheostomy tube is positioned 2 cm superior to the bogdan. A PICC line catheter enters the left a rm with its tip in the superior vena cava. The left costophrenic angle is clear. IMPRESSION: 1. A PICC line catheter enters the left arm with its tip in the superior vena cava. 2. Suspect positioning of a tracheostomy tube with its tip 2 cm superior to the bogdan. 3. Cardiomegaly with asymmetric interstitial infiltrates greater in the right lung than left. Asym metric interstitial pulmonary edema associated with CHF a right pleural effusion considered in the d ifferential diagnosis. Interstitial infiltrates from pneumonia could be considered. 4. Suboptimal inspiratory effort with compressive atelectasis in the bases of the lungs. RPTAT:AAJJ Physician Waylon Date Time Electronically viewed and signed by Omar Urrutia Physician on 05/06/2016 14:46 SHYLA/
--- NOTE | 2016-05-06 14:56 | PN ---
DATE: 05/06/2016 SUBJECTIVE: The patient is alert, feels better. Looks comfortable, no fevers. Off pressors. LABORATORY DATA: No CBC this morning. BUN 77, creatinine 2.33. MICROBIOLOGY: Urine culture growing Pseudomonas, MRSA. ANTIMICROBIALS: The patient is on 1. IV vancomycin. 2. Cefepime. INDWELLINGS: Trach, PEG, suprapubic catheter. PHYSICAL EXAMINATION: GENERAL: This is a chronically ill-appearing, middle-aged white man who is in no distress. HEENT: Head atraumatic, normocephalic. Sclerae anicteric. Buccal mucosa dry. NECK: Supple. CHEST: Rise symmetrical. Breath sounds diminished to bases. HEART: S1, S2. ABDOMEN: Soft, bowel sounds present. EXTREMITIES: Contractured, wasted, without cyanosis. ASSESSMENT: 1. Resolving sepsis status post shock. 2. Recurrent urinary tract infection with urine culture growing multidrug resistant organisms. 3. Acute kidney injury. 4. Chronic respiratory failure. 5. Neurogenic bladder with persistent retention, status post suprapubic catheter placement. PLAN: We are going to change vancomycin to doxycycline. Continue cefepime. Continue present care. Monitor renal function closely. Follow recommendations of consultants. Dictated By: REGINALDO CHERY CLOTHING CUTTER for ANTONELLA ARGUETA/QUE Conf#: [id number] DID#: [id number]
--- NOTE | 2016-05-06 14:58 | RADRPT ---
PROCEDURE: XR Chest. CLINICAL INDICATION: Reassessed with line catheter placement. TECHNIQUE: Single frontal view of the chest was obtained COMPARISON: Chest x-ray 05/06/2016 12:16 p.m. FINDINGS: The soft tissues are normal. There is a dextroscoliosis of the mid thoracic spine with degenerative osteophytes in the thoracic spine. The heart is enlarged. The cardiomediastinal silhouette and hi lar structures are normal. The pulmonary vasculature is increased. There is a left-sided aorta. A P ICC line catheter is identified with its tip near the junction of the right atrium and superior vena cava. Tracheostomy tube is positioned about 2.2 cm superior to the bogdan. There is a poor inspira tion with asymmetric infiltrates in the right lower lobe silhouetting the right diaphragm. There is an associated right pleural effusion. Left costophrenic angle is clear. IMPRESSION: 1. Cardiomegaly with asymmetric interstitial infiltrates in the right hilar area and right lower lob e of the right pleural effusion. 2. The PICC line catheter is well positioned with its tip at the right atrial superior vena cava ju nction. 3. Tracheostomy tube with its tip 2.2 cm superior to the bogdan. RPTAT:AAJJ Physician Waylon Date Time Electronically viewed and signed by Physician Waylon on 05/06/2016 14:58 SHYLA/
[2016-05-06] MEDS ORDERED: GLUCAGON 1 MG INJ IM PRN (15:30)
[2016-05-06] MEDS ORDERED: GLUCOSE GEL 15 GRAM TUBE PO PRN ×2 (15:30)
[2016-05-06] MEDS ORDERED: DEXTROSE 50% 50 ML SYRINGE IV PRN ×2 (15:30)
[2016-05-06] MEDS ORDERED: GLUCOSE GEL 15 GRAM TUBE BUCCAL PRN (15:30)
[2016-05-06] MEDS ORDERED: SOD CHLORIDE 0.45% 1,000 ML IV ONE (15:30)
--- NOTE | 2016-05-06 17:28 | PN ---
DATE: 05/06/2016 PULMONARY FOLLOWUP NOTE SUBJECTIVE: The patient is in [facility] ICU. The patient is fully awake, alert, trying to communicate. He has a tracheostomy, and for this reason, he does not have audible voice. OBJECTIVE: VITAL SIGNS: Most recent ones show blood pressure 113/71, pulse rate of 92, respirations 21, pulse oximetry showing 94% saturation on tracheostomy collar. GENERAL: Since this morning, he has been off ventilator support. The patient has been fighting the ventilator and trying to disconnect himself. He is known to do this when he gets upset or when he gets frustrated. NECK: Tracheal secretions are clear. No bleeding is seen. HEART: Regular sinus rhythm. CHEST: Breath sounds are heard bilaterally. Lung tierney are clear. ABDOMEN: Soft, not distended. He is tolerating oral feedings. EXTREMITIES: Show paraplegia, no edema. LABORATORY DATA: From today show sodium 132, potassium 3.6, bicarbonate of 33, BUN 67, creatinine 1 .89. Glucose somehow surprisingly has shot up to 430. This may or may not be accurate, and this wi ll be repeated. Nevertheless, the patient has being placed on insulin coverage with Accu-Chek monit oring. The CBC from today shows a WBC increasing 12,300, hemoglobin 8.4, hematocrit 27.1, platelets within normal limits. The arterial blood gases today show pH 7.34, pCO2 of 29, pO2 107, on ventila tor support with 40% inhaled oxygen concentration. Arterial blood gases will be repeated tomorrow. The microbiology results show urine culture showing growth for Pseudomonas aeruginosa and MRSA. Th e patient is on vancomycin and cefepime. The patient is also being followed by infectious disease c onsultant and the nurse practitioner. IMPRESSION: 1. Urosepsis. 2. Chronic respiratory failure. 3. Chronic kidney disease with acute decompensation. 4. Chronic anemia. 5. Spinal cord injury resulting in paraplegia. 6. Status post tracheostomy. 7. Status post gastrostomy. 8. Status post suprapubic cystostomy. RECOMMENDATIONS 1. The patient needs to be watched closely. As of now, he is doing reasonably well without the apollo tilator. Any time, if the patient decompensates, the patient will need to be placed back on the apollo tilator which will be relatively easy as he has a tracheostomy. Blood gases to be repeated tomorrow . 2. Continue pulmonary toilet with bronchodilator inhalation therapy. 3. Continue antibiotics as recommended by the ID behavioral health consultant. 4. If the patient is moved out of ICU, he needs to be monitored by 1 to 1 ICING MIXER to prevent any respir atory complications. If he tolerates being off the ventilator for more than 24 hours with stable bl ood gases, probably this could be discontinued. Otherwise, he needs to be placed in a room close to the nurse's station if he is moved out of ICU. All of these things have been explained to the nurs ing staff in ICU. Dictated By: HUMBERTO PEREZ MD SR/NTS Conf#: [id number] DID#: [id number]
[2016-05-06] MEDS: INSULIN ASPART [NOVOLOG] 3 ML PEN SC SCH ×2 (17:35→20:42)
[2016-05-06] MEDS: DOXYCYCLINE 100 MG TAB PO SCH (21:25)
[2016-05-07] VITALS (13 sets, daily range): BP systolic 107–136; BP diastolic 63–97; PULSE 81–96; RESP 16–18
[2016-05-07] MEDS: ACCU-CHEK XX SCH (02:06)
[2016-05-07] MEDS: HYDROmorphONE 1 MG/ML SYG IV PRN ×5 (03:02→21:25)
[2016-05-07] MEDS: PANTOPRAZOLE (EC) 40 MG TAB PO SCH (07:08)
[2016-05-07] MEDS: INSULIN ASPART [NOVOLOG] 3 ML PEN SC SCH ×4 (07:55→21:00)
[2016-05-07] MEDS: DOXYCYCLINE 100 MG TAB PO SCH ×2 (09:11→21:06)
[2016-05-07] MEDS: CITRIC ACID/NA CITRATE 30 ML CUP PO SCH ×3 (09:12→21:06)
[2016-05-07] MEDS: CEFEPIME 1GM/50 ML (PMX) 50 ML IVPB SCH ×2 (09:12→21:07)
[2016-05-07] MEDS: GABAPENTIN (50 MG/ML PO SYG) GTB SCH ×4 (09:13→22:00)
[2016-05-07] MEDS: ENOXAPARIN 30 MG/0.3 ML SYG SC SCH (09:21)
[2016-05-07] MEDS ORDERED: VANCOMYCIN 1 GM in NS 250 ML IVPB SCH (10:00)
[2016-05-07 10:41] LABS: AADO2 Arterial 136.4 mmHg (7.0-24.0); Allen Test ACCEPTAB; Arterial COHb 0.3 % (0.0-3.0); Arterial Fraction of Oxyhgb 93.7 % (93.0-99.0); Arterial MetHb 0.3 % (0.0-1.5); Arterial Total Hemglobin 9.6 g/dl (12.0-18.0); MODE TRACH COLLAR
--- NOTE | 2016-05-07 12:21 | PN ---
Date/Time of Note Date/Time of Note DATE: 05/07/16 TIME: 12:20 Assessment/Plan VTE Prophylaxis VTE Prophylaxis Intervention: other Lines/Catheters IV Catheter Type (from Nrs): PICC Line Central line still needed: Yes Urinary Cath still in place: Yes (suprapubic cath) Reason Cath still needed: skin wounds contaminated by urine Assessment/Plan Chief Complaint/Hosp Course 1. Polymicrobial Urinary tract infection per UA. Continue antibiotics. Dr. Maciel is following patient in infection disease consultation. 2. Acute kidney injury on top of chronic kidney disease. Dr. Barker is following the patient in nephrology consultation. 3. Ventilator-dependent respiratory failure with tracheostomy. is following patient in pulmonary consultation. Continue bronchodilators and ventilatory support. 4. Multiple decubitus ulcers present on admission. Continue zinc sulfate, multivitamins and offloading and current wound care. 5. Cervical spine injury with paraplegia. 6. Bipolar disorder with psychosis. Continue patient on risperidone b.i.d. and Lexapro. 7. Iron deficiency anemia. Continue patient on iron supplements. 8. Neurogenic bladder with suprapubic catheter. 9. Dysphagia with PEG. Problems: Subjective 24 Hr Interval Summary Free Text/Dictation Patient has no complaints Exam/Review of Systems Vital Signs Vitals Vital Signs Date Time Temp Pulse Resp B/P Pulse Ox O2 Delivery O2 Flow Rate FiO2 05/07/16 12:18 86 05/07/16 11:28 98.3 18 136/97 94 05/07/16 04:00 Trach Collar 05/07/16 03:35 8.0 35 Intake and Output 05/06/16 05/06/16 05/07/16 15:00 23:00 07:00 Intake Total 870 ml 850 ml 1780 ml Output Total 775 ml 825 ml 300 ml Balance 95 ml 25 ml 1480 ml Exam Constitutional: well developed Head: atraumatic, normocephalic Neck: supple Respiratory: clear to auscultation Cardiovascular: regular rate and rhythm Gastrointestinal: non-tender, soft Extremities: normal pulses Results Result Diagram: 05/05/16 0500 05/06/16 1405 Results 24 hrs Laboratory Tests Test 05/06/16 14:05 05/06/16 17:52 05/06/16 20:29 05/07/16 02:06 Sodium Level 132 L Potassium Level 3.6 Chloride Level 92 #L Carbon Dioxide Level 33 H Anion Gap 11 Blood Urea Nitrogen 67 H Creatinine 1.89 H Glucose Level 430 #*H Calcium Level 7.6 L Bedside Glucose 113 188 103 Test 05/07/16 08:00 05/07/16 08:32 05/07/16 11:48 Blood Gas Specimen Source Blood arterial Arterial Blood Date Drawn 05/07/2016 10:32:00 AM Arterial Blood pH (Temp corrected) 7.467 H Arterial Blood pCO2 (Temp correct) 39.6 Arterial Blood pO2 (Temp corrected) 67.1 L Arterial Blood HCO3 28.0 H Arterial Blood Base Excess 4.0 H Arterial Blood Oxygen Saturation 94.3 L Julito Test ACCEPTAB Arterial Blood Gas Puncture Site Left Radial Arterial Blood Carboxyhemoglobin 0.3 Arterial Blood Methemoglobin 0.3 Blood Gas A-a O2 Differential 136.4 H Oxyhemoglobin Percent 93.7 Total Hemoglobin 9.6 L Blood Gas Temperature 37.0 Blood Gas Modality TRACH COLLAR FiO2 35.0 Blood Gas Notified Whom TM Blood Gas Notified Time 05/07/2016 10:41:00 AM Bedside Glucose 91 104 Medications Medications Current Medications Enoxaparin Sodium (Lovenox) 30 mg DAILY SC Last administered on 05/07/16 09:21 ; Admin Dose 30 MG; Start 05/04/16 at 09:00 Pantoprazole 40 mg 40 mg DAILY@06 PO Last administered on 05/07/16 07:08; Admin Dose 40 MG; Start 05/04/16 at 06:00 Cefepime HCl (Maxipime 1gm/50 ml (Pmx)) 50 ml @ 100 mls/hr Q12 IVPB Last administered on 05/07/16 09:12; Admin Dose 100 MLS/HR; Start 05/03/16 at 23:00 Hydromorphone HCl (Dilaudid) 1 mg Q4 PRN IV SEVERE PAIN LEVEL 7-10 Last administered on 05/07/16 11:49; Admin Dose 1 MG; Start 05/03/16 at 18:30 Citric Acid/ Sodium Citrate (Bicitra) 30 ml TID PO Last administered on 09:12; Admin Dose 30 ML; Start 05/04/16 at 13:00 Gabapentin (Neurontin Liquid) 100 mg TID GTB Last administered on 05/07/16 09: 13; Admin Dose 100 MG; Start 05/05/16 at 13:00 Silver Nitrate 1 stick 1 stick Q7D TOP Last administered on 05/05/16 18:05; Admin Dose 1 STICK; Start 05/05/16 at 16:30; Stop 05/12/16 at 16:31 Norepinephrine/ Dextrose (Levophed/D5W) 500 ml @ 1.87 mls/hr TITRATE IV ; Start 05/05/16 at 20:00 Zolpidem Tartrate (Ambien) 5 mg HS PRN PO INSOMNIA Last administered on 20:42; Admin Dose 5 MG; Start 05/05/16 at 20:30 IV Flush (NS 10 ml) 10 ml PRN PRN IV IV PROTOCOL; Start 05/06/16 at 12:30 Doxycycline Hyclate (Vibramycin) 100 mg BID PO Last administered on 05/07/16 09 :11; Admin Dose 100 MG; Start 05/06/16 at 21:00 Diagnostic Test (Pha) (Accu-Chek) 1 ea 02 XX Last administered on 05/07/16 02: 06; Admin Dose 1 EA; Start 05/07/16 at 02:00 Miscellaneous Information 1 ea NOTE XX ; Start 05/06/16 at 15:30 Glucose (Glutose) 15 gm Q15M PRN PO DECREASED GLUCOSE; Start 05/06/16 at 15:30 Glucose (Glutose) 22.5 gm Q15M PRN PO DECREASED GLUCOSE; Start 05/06/16 at 15: 30 Dextrose (D50w Syringe) 25 ml Q15M PRN IV DECREASED GLUCOSE; Start 05/06/16 at 15:30 Dextrose (D50w Syringe) 50 ml Q15M PRN IV DECREASED GLUCOSE; Start 05/06/16 at 15:30 Glucagon (Glucagen) 1 mg Q15M PRN IM DECREASED GLUCOSE; Start 05/06/16 at 15:30 Glucose (Glutose) 15 gm Q15M PRN BUCCAL DECREASED GLUCOSE; Start 05/06/16 at 15 :30 DANAY MUIR May 07, 2016 12:20
[2016-05-07 12:32] LABS: ADD SCAN DIFF NO
[2016-05-07 12:47] LABS: BASOPHILS % 0.2 % (0.0-2.0); EOSINOPHILS # 0.2 10^3/ul (0.0-0.5); EOSINOPHILS % 2.8 % (0.0-7.0); HEMATOCRIT 27.7 % (42.0-52.0); HEMOGLOBIN 8.6 g/dl (14.0-18.0); LYMPHOCYTES # 0.7 10^3/ul (0.8-2.9); LYMPHOCYTES % 10.6 % (15.0-51.0); MEAN CORPUSCULAR HEMOGLOBIN 30.4 pg (29.0-33.0); MEAN CORPUSCULAR VOLUME 97.9 fl (82.0-101.0); MEAN PLATELET VOLUME 10.4 fl (7.4-10.4); MONOCYTE # 0.6 10^3/ul (0.3-0.9); MONOCYTES % 9.8 % (0.0-11.0); NEUTROPHIL # 4.8 10^3/ul (1.6-7.5); NEUTROPHILS % 76.1 % (39.0-77.0); PLATELET COUNT 169 10^3/UL (140-415); RED BLOOD COUNT 2.83 10^6/ul (4.70-6.10); RED CELL DISTRIBUTION WIDTH 15.4 % (11.5-14.5); WHITE BLOOD COUNT 6.3 10^3/ul (4.8-10.8)
[2016-05-07 13:07] LABS: CREATININE 2.09 mg/dl (0.61-1.24)
[2016-05-07 13:08] LABS: CALCIUM 8.6 mg/dl (8.4-10.2)
--- NOTE | 2016-05-07 14:41 | PN ---
DATE: 05/07/2016 The patient is on the medical floor now. He is off ventilator. He is fully awake, alert, trying to talk through his tracheostomy. He is breathing without the ventilator support since yesterday. VITAL SIGNS: Stable. Temperature is 98.3, blood pressure 136/97, pulse rate is 86, respirations 18 , pulse oximetry 94% saturation. NECK: Tracheal secretions are clear. No bleeding is seen. HEART: Regular rhythm. CHEST: Breath sounds are fairly clear in both lung tierney. ABDOMEN: Soft, not distended. He is able to eat orally. EXTREMITIES: Show paraplegia, no edema. LABORATORY DATA: From today shows BUN 138, potassium 4, bicarbonate of 28. BUN is 60, creatinine 2 .09, glucose 96. The CBC shows WBC 6300, hemoglobin 8.6, hematocrit 27.7, platelets are within norm al limits. The arterial blood gases today off ventilator support shows pH 7.46, pCO2 39, pO2 67 on 30% inhaled oxygen concentration. Blood gases are satisfactory. IMPRESSION: 1. Urosepsis. 2. Chronic respiratory failure. 3. Chronic kidney disease with acute decompensation. 4. Chronic anemia. 5. Spinal cord injury resulting in paraplegia. 6. Status post tracheostomy. 7. Status post gastrostomy. 8. Status post suprapubic cystostomy. RECOMMENDATIONS: 1. Continue antibiotics as per the infectious disease custom decorating consultant. 2. Continue bronchodilator inhalation therapy for pulmonary clearance of secretions. 3. As the patient has been weaned off ventilator support and able to maintain stable respiratory st atus with acceptable blood gases, this may be continued with close observation. If he were to devel op any respiratory distress, he can be placed back on ventilator through the tracheostomy. Dictated By: HUMBERTO PEREZ MD SR/NTS Conf#: [id number] DID#: [id number]
--- NOTE | 2016-05-07 20:16 | CONS ---
Date/Time of Note Date/Time of Note DATE: 05/07/16 TIME: 20:12 Assessment/Plan Assessment/Plan Chief Complaint/Hosp Course SUBJECTIVE: Alert, feels good, no fevers, nad MICROBIOLOGY: Blood culture negative. Urine culture growing MRSA/GNR INDWELLINGS: Trach, PEG and suprapubic catheter. ANTIMICROBIALS: 1. Doxycycline 2. IV Cefepime. DIAGNOSTICS: Chest x-ray on admission revealed no evidence of acute cardiopulmonary disease. PHYSICAL EXAMINATION: GENERAL: This is a chronically ill-appearing, middle-aged white man, who is lying comfortably in bed. HEENT: Head atraumatic, normocephalic. Sclerae anicteric. Buccal mucosa pink. NECK: Supple. Tracheostomy present. CHEST: Chest rise is symmetrical. Breath sounds diminished to the bases. HEART: S1, S2. ABDOMEN: Soft. Bowel tones present. EXTREMITIES: Wasted, contractured. ASSESSMENT 1. Recurrent sepsis ==> s/p shock. 2. Polymicrobial urinary tract infection. 3. Quadriplegia secondary to C-spine injury. 4. Neurogenic bladder, with a suprapubic catheter. 5. Acute on chronic kidney disease. 6. History of right nephrectomy. PLAN: Improving, continue abx DW staff Problems: Consultation Date/Type/Reason Admit Date/Time May 04, 2016 at 12:27 Initial Consult Date 05/05/16 Type of Consultation: id Referring Provider: JOSÉ ANTONIO MIRZA MD Exam/Review of Systems Vital Signs Vitals Vital Signs Date Time Temp Pulse Resp B/P Pulse Ox O2 Delivery O2 Flow Rate FiO2 05/07/16 19:57 98.1 86 16 111/72 98 05/07/16 18:16 8.0 35 05/07/16 04:00 Trach Collar Intake and Output 05/06/16 05/06/16 05/07/16 15:00 23:00 07:00 Intake Total 870 ml 850 ml 1780 ml Output Total 775 ml 825 ml 300 ml Balance 95 ml 25 ml 1480 ml Results Result Diagram: 05/07/16 1220 05/07/16 1220 Results 24 hrs Laboratory Tests Test 05/06/16 20:29 05/07/16 02:06 05/07/16 08:00 05/07/16 08:32 Bedside Glucose 188 103 91 Blood Gas Specimen Source Blood arterial Arterial Blood Date Drawn 05/07/2016 10:32:00 AM Arterial Blood pH (Temp corrected) 7.467 H Arterial Blood pCO2 (Temp correct) 39.6 Arterial Blood pO2 (Temp corrected) 67.1 L Arterial Blood HCO3 28.0 H Arterial Blood Base Excess 4.0 H Arterial Blood Oxygen Saturation 94.3 L Julito Test ACCEPTAB Arterial Blood Gas Puncture Site Left Radial Arterial Blood Carboxyhemoglobin 0.3 Arterial Blood Methemoglobin 0.3 Blood Gas A-a O2 Differential 136.4 H Oxyhemoglobin Percent 93.7 Total Hemoglobin 9.6 L Blood Gas Temperature 37.0 Blood Gas Modality TRACH COLLAR FiO2 35.0 Blood Gas Notified Whom TM Blood Gas Notified Time 05/07/2016 10:41:00 AM Test 05/07/16 11:48 05/07/16 12:20 05/07/16 17:54 Bedside Glucose 104 161 White Blood Count 6.3 # Red Blood Count 2.83 L Hemoglobin 8.6 L Hematocrit 27.7 L Mean Corpuscular Volume 97.9 Mean Corpuscular Hemoglobin 30.4 Mean Corpuscular Hemoglobin Concent 31.0 L Red Cell Distribution Width 15.4 H Platelet Count 169 Mean Platelet Volume 10.4 Neutrophils % 76.1 Lymphocytes % 10.6 L Monocytes % 9.8 Eosinophils % 2.8 Basophils % 0.2 Nucleated Red Blood Cells % 0.0 Neutrophils # 4.8 Lymphocytes # 0.7 L Monocytes # 0.6 Eosinophils # 0.2 Basophils # 0.0 Nucleated Red Blood Cells # 0.0 Sodium Level 138 Potassium Level 4.0 Chloride Level 103 # Carbon Dioxide Level 28 Anion Gap 11 Blood Urea Nitrogen 60 H Creatinine 2.09 H Glucose Level 96 # Calcium Level 8.6 Medications Medications Current Medications Enoxaparin Sodium (Lovenox) 30 mg DAILY SC Last administered on 05/07/16 09:21 ; Admin Dose 30 MG; Start 05/04/16 at 09:00 Pantoprazole 40 mg 40 mg DAILY@06 PO Last administered on 05/07/16 07:08; Admin Dose 40 MG; Start 05/04/16 at 06:00 Cefepime HCl (Maxipime 1gm/50 ml (Pmx)) 50 ml @ 100 mls/hr Q12 IVPB Last administered on 05/07/16 09:12; Admin Dose 100 MLS/HR; Start 05/03/16 at 23:00 Hydromorphone HCl (Dilaudid) 1 mg Q4 PRN IV SEVERE PAIN LEVEL 7-10 Last administered on 05/07/16 17:55; Admin Dose 1 MG; Start 05/03/16 at 18:30 Citric Acid/ Sodium Citrate (Bicitra) 30 ml TID PO Last administered on 12:22; Admin Dose 30 ML; Start 05/04/16 at 13:00 Gabapentin (Neurontin Liquid) 100 mg TID GTB Last administered on 05/07/16 12: 23; Admin Dose 100 MG; Start 05/05/16 at 13:00 Silver Nitrate 1 stick 1 stick Q7D TOP Last administered on 05/05/16 18:05; Admin Dose 1 STICK; Start 05/05/16 at 16:30; Stop 05/12/16 at 16:31 Norepinephrine/ Dextrose (Levophed/D5W) 500 ml @ 1.87 mls/hr TITRATE IV ; Start 05/05/16 at 20:00 Zolpidem Tartrate (Ambien) 5 mg HS PRN PO INSOMNIA Last administered on 20:42; Admin Dose 5 MG; Start 05/05/16 at 20:30 IV Flush (NS 10 ml) 10 ml PRN PRN IV IV PROTOCOL; Start 05/06/16 at 12:30 Doxycycline Hyclate (Vibramycin) 100 mg BID PO Last administered on 05/07/16 09 :11; Admin Dose 100 MG; Start 05/06/16 at 21:00 Diagnostic Test (Pha) (Accu-Chek) 1 ea 02 XX Last administered on 05/07/16 02: 06; Admin Dose 1 EA; Start 05/07/16 at 02:00 Miscellaneous Information 1 ea NOTE XX ; Start 05/06/16 at 15:30 Glucose (Glutose) 15 gm Q15M PRN PO DECREASED GLUCOSE; Start 05/06/16 at 15:30 Glucose (Glutose) 22.5 gm Q15M PRN PO DECREASED GLUCOSE; Start 05/06/16 at 15: 30 Dextrose (D50w Syringe) 25 ml Q15M PRN IV DECREASED GLUCOSE; Start 05/06/16 at 15:30 Dextrose (D50w Syringe) 50 ml Q15M PRN IV DECREASED GLUCOSE; Start 05/06/16 at 15:30 Glucagon (Glucagen) 1 mg Q15M PRN IM DECREASED GLUCOSE; Start 05/06/16 at 15:30 Glucose (Glutose) 15 gm Q15M PRN BUCCAL DECREASED GLUCOSE; Start 05/06/16 at 15 :30 REGINALDO CHERY NP May 07, 2016 20:15
[2016-05-07] MEDS: ZOLPIDEM 5 MG TAB PO PRN (21:07)
--- NOTE | 2016-05-07 22:06 | CONS ---
Date/Time of Note Date/Time of Note DATE: 05/07/16 TIME: 22:04 Assessment/Plan Assessment/Plan Additional Assessment/Plan 1. Acute kidney injury secondary to severe prerenal azotemia and possible acute tubular necrosis from sepsis secondary to urinary tract infection. 2. Acute uremia with a BUN of 131.- slowly improving with D5W 3. Metabolic acidosis due to the worsening renal failure. 4. Urinary tract infection with urinalysis positive for nitrites. on IV abx 5. 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 6. History of neurogenic bladder with urinary retention, status post suprapubic catheter. 7. History of previous recurrent urinary tract infections. 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 9. 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 10. Other medical history includes anxiety, depression, bipolar disorder, psychosis. 11. History of right nephrectomy with left renal nephrolithiasis and a left renal cyst measuring 5.3 cm in size. 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 Consultation Date/Type/Reason Admit Date/Time Initial Consult Date 05/03/2016 Type of Consultation: NEPHROLOGY Referring Provider: JOSÉ ANTONIO MIRZA MD 24 HR Interval Summary Free Text/Dictation BUN/Cr 60/2.09 Bicarbonate drip has been stopped, afebrile, downgraded to telemetry floor Exam/Review of Systems Vital Signs Vitals Vital Signs Date Time Temp Pulse Resp B/P Pulse Ox O2 Delivery O2 Flow Rate FiO2 05/07/16 20:32 81 05/07/16 20:28 8.0 35 05/07/16 20:28 20 98 Aerosol T Tube 05/07/16 19:57 98.1 111/72 Intake and Output 05/06/16 05/06/16 05/07/16 15:00 23:00 07:00 Intake Total 870 ml 850 ml 1780 ml Output Total 775 ml 825 ml 300 ml Balance 95 ml 25 ml 1480 ml Exam Follows commands, no apparent distress Constitutional: alert, frail, oriented Head: normocephalic Neck: other (Tracheostomy) Respiratory: other (Coarse breath sounds bilaterally, no wheezing) Cardiovascular: other (S1-S2 heard), regular rate and rhythm Gastrointestinal: bowel sounds, non-tender, other (No guarding), soft Extremities: other (No edema or cyanosis) Results Result Diagram: 05/07/16 1220 05/07/16 1220 Results 24 hrs Laboratory Tests Test 05/07/16 02:06 05/07/16 08:00 05/07/16 08:32 05/07/16 11:48 Bedside Glucose 103 91 104 Blood Gas Specimen Source Blood arterial Arterial Blood Date Drawn 05/07/2016 10:32:00 AM Arterial Blood pH (Temp corrected) 7.467 H Arterial Blood pCO2 (Temp correct) 39.6 Arterial Blood pO2 (Temp corrected) 67.1 L Arterial Blood HCO3 28.0 H Arterial Blood Base Excess 4.0 H Arterial Blood Oxygen Saturation 94.3 L Julito Test ACCEPTAB Arterial Blood Gas Puncture Site Left Radial Arterial Blood Carboxyhemoglobin 0.3 Arterial Blood Methemoglobin 0.3 Blood Gas A-a O2 Differential 136.4 H Oxyhemoglobin Percent 93.7 Total Hemoglobin 9.6 L Blood Gas Temperature 37.0 Blood Gas Modality TRACH COLLAR FiO2 35.0 Blood Gas Notified Whom TM Blood Gas Notified Time 05/07/2016 10:41:00 AM Test 05/07/16 12:20 05/07/16 17:54 05/07/16 20:56 White Blood Count 6.3 # Red Blood Count 2.83 L Hemoglobin 8.6 L Hematocrit 27.7 L Mean Corpuscular Volume 97.9 Mean Corpuscular Hemoglobin 30.4 Mean Corpuscular Hemoglobin Concent 31.0 L Red Cell Distribution Width 15.4 H Platelet Count 169 Mean Platelet Volume 10.4 Neutrophils % 76.1 Lymphocytes % 10.6 L Monocytes % 9.8 Eosinophils % 2.8 Basophils % 0.2 Nucleated Red Blood Cells % 0.0 Neutrophils # 4.8 Lymphocytes # 0.7 L Monocytes # 0.6 Eosinophils # 0.2 Basophils # 0.0 Nucleated Red Blood Cells # 0.0 Sodium Level 138 Potassium Level 4.0 Chloride Level 103 # Carbon Dioxide Level 28 Anion Gap 11 Blood Urea Nitrogen 60 H Creatinine 2.09 H Glucose Level 96 # Calcium Level 8.6 Bedside Glucose 161 104 Medications Medications Current Medications Enoxaparin Sodium (Lovenox) 30 mg DAILY SC Last administered on 05/07/16 09:21 ; Admin Dose 30 MG; Start 05/04/16 at 09:00 Pantoprazole 40 mg 40 mg DAILY@06 PO Last administered on 05/07/16 07:08; Admin Dose 40 MG; Start 05/04/16 at 06:00 Cefepime HCl (Maxipime 1gm/50 ml (Pmx)) 50 ml @ 100 mls/hr Q12 IVPB Last administered on 05/07/16 21:07; Admin Dose 100 MLS/HR; Start 05/03/16 at 23:00 Hydromorphone HCl (Dilaudid) 1 mg Q4 PRN IV SEVERE PAIN LEVEL 7-10 Last administered on 05/07/16 21:25; Admin Dose 1 MG; Start 05/03/16 at 18:30 Citric Acid/ Sodium Citrate (Bicitra) 30 ml TID PO Last administered on 21:06; Admin Dose 30 ML; Start 05/04/16 at 13:00 Silver Nitrate 1 stick 1 stick Q7D TOP Last administered on 05/05/16 18:05; Admin Dose 1 STICK; Start 05/05/16 at 16:30; Stop 05/12/16 at 16:31 Norepinephrine/ Dextrose (Levophed/D5W) 500 ml @ 1.87 mls/hr TITRATE IV ; Start 05/05/16 at 20:00 Zolpidem Tartrate (Ambien) 5 mg HS PRN PO INSOMNIA Last administered on 21:07; Admin Dose 5 MG; Start 05/05/16 at 20:30 IV Flush (NS 10 ml) 10 ml PRN PRN IV IV PROTOCOL; Start 05/06/16 at 12:30 Doxycycline Hyclate (Vibramycin) 100 mg BID PO Last administered on 05/07/16 21 :06; Admin Dose 100 MG; Start 05/06/16 at 21:00 Diagnostic Test (Pha) (Accu-Chek) 1 ea 02 XX Last administered on 05/07/16 02: 06; Admin Dose 1 EA; Start 05/07/16 at 02:00 Miscellaneous Information 1 ea NOTE XX ; Start 05/06/16 at 15:30 Glucose (Glutose) 15 gm Q15M PRN PO DECREASED GLUCOSE; Start 05/06/16 at 15:30 Glucose (Glutose) 22.5 gm Q15M PRN PO DECREASED GLUCOSE; Start 05/06/16 at 15: 30 Dextrose (D50w Syringe) 25 ml Q15M PRN IV DECREASED GLUCOSE; Start 05/06/16 at 15:30 Dextrose (D50w Syringe) 50 ml Q15M PRN IV DECREASED GLUCOSE; Start 05/06/16 at 15:30 Glucagon (Glucagen) 1 mg Q15M PRN IM DECREASED GLUCOSE; Start 05/06/16 at 15:30 Glucose (Glutose) 15 gm Q15M PRN BUCCAL DECREASED GLUCOSE; Start 05/06/16 at 15 :30 Gabapentin (Neurontin Liquid) 100 mg TID GTB ; Start 05/07/16 at 22:00 TIARA CISNEROS MD May 07, 2016 22:06
[2016-05-08] VITALS (12 sets, daily range): BP systolic 92–125; BP diastolic 55–82; PULSE 77–87; RESP 16–18
[2016-05-08] MEDS: ACCU-CHEK XX SCH (02:00)
[2016-05-08] MEDS: PANTOPRAZOLE (EC) 40 MG TAB PO SCH (05:52)
[2016-05-08] MEDS: HYDROmorphONE 1 MG/ML SYG IV PRN ×4 (06:07→21:12)
[2016-05-08 06:37] LABS: ADD SCAN DIFF NO
[2016-05-08 06:46] LABS: BASOPHILS % 0.2 % (0.0-2.0); EOSINOPHILS # 0.2 10^3/ul (0.0-0.5); EOSINOPHILS % 3.4 % (0.0-7.0); HEMOGLOBIN 9.2 g/dl (14.0-18.0); LYMPHOCYTES # 0.7 10^3/ul (0.8-2.9); LYMPHOCYTES % 11.7 % (15.0-51.0); MEAN CORPUSCULAR HEMOGLOBIN 30.5 pg (29.0-33.0); MEAN CORPUSCULAR HGB CONC 30.7 g/dl (32.0-37.0); MEAN CORPUSCULAR VOLUME 99.3 fl (82.0-101.0); MEAN PLATELET VOLUME 10.7 fl (7.4-10.4); MONOCYTE # 0.8 10^3/ul (0.3-0.9); MONOCYTES % 12.1 % (0.0-11.0); NEUTROPHIL # 4.5 10^3/ul (1.6-7.5); NEUTROPHILS % 72.1 % (39.0-77.0); PLATELET COUNT 170 10^3/UL (140-415); RED BLOOD COUNT 3.02 10^6/ul (4.70-6.10); WHITE BLOOD COUNT 6.2 10^3/ul (4.8-10.8)
[2016-05-08 07:06] LABS: POTASSIUM 4.2 mmol/L (3.5-5.1)
[2016-05-08 07:08] LABS: CREATININE 2.12 mg/dl (0.61-1.24)
[2016-05-08 07:09] LABS: CALCIUM 8.9 mg/dl (8.4-10.2)
[2016-05-08] MEDS: INSULIN ASPART [NOVOLOG] 3 ML PEN SC SCH ×4 (07:55→21:00)
[2016-05-08] MEDS: GABAPENTIN (50 MG/ML PO SYG) GTB SCH ×3 (09:00→21:12)
[2016-05-08] MEDS: DOXYCYCLINE 100 MG TAB PO SCH ×2 (09:44→21:12)
[2016-05-08] MEDS: CEFEPIME 1GM/50 ML (PMX) 50 ML IVPB SCH ×2 (09:44→21:12)
[2016-05-08] MEDS: CITRIC ACID/NA CITRATE 30 ML CUP PO SCH ×3 (09:44→21:12)
[2016-05-08] MEDS: ENOXAPARIN 30 MG/0.3 ML SYG SC SCH (09:58)
--- NOTE | 2016-05-08 10:47 | PN ---
Date/Time of Note Date/Time of Note DATE: 05/08/16 TIME: 10:36 Assessment/Plan VTE Prophylaxis VTE Prophylaxis Intervention: SCD's Lines/Catheters IV Catheter Type (from Nrs): PICC Line Central line still needed: Yes Urinary Cath still in place: Yes (suprapubic) Reason Cath still needed: urinary retention Assessment/Plan Assessment/Plan 1. Acute kidney injury secondary to severe prerenal azotemia and possible acute tubular necrosis from sepsis secondary to urinary tract infection. 2. Acute uremia with a BUN of 55.- slowly improving with D5W 3. Metabolic acidosis due to the worsening renal failure. 4. Urinary tract infection with urinalysis positive for nitrites. on IV abx 5. 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 6. History of neurogenic bladder with urinary retention, status post suprapubic catheter. 7. History of previous recurrent urinary tract infections. 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 9. 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 10. Other medical history includes anxiety, depression, bipolar disorder, psychosis. 11. History of right nephrectomy with left renal nephrolithiasis and a left renal cyst measuring 5.3 cm in size. 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 Total time spent 30 minutes on this patient's follow up progress note, communicating with Nursing Staff, and discussing with MD. Further clinical recommendations depend upon patient's clinical course. Fareed Barker. Subjective 24 Hr Interval Summary Free Text/Dictation NAD, awake, alert, follows simple commands, afebrile, ate 100% of his breakfast. no new issues reported. dw staff. Constitutional: no complaints Eyes: no complaints ENT: no complaints Respiratory: no complaints Cardiovascular: no complaints Gastrointestinal: no complaints Genitourinary: no complaints Musculoskeletal: no complaints Skin: no complaints Neurologic: no complaints Endocrine: no complaints Lymphatic: no complaints Psychological: no complaints Immunologic: no complaints Exam/Review of Systems Vital Signs Vitals Vital Signs Date Time Temp Pulse Resp B/P Pulse Ox O2 Delivery O2 Flow Rate FiO2 05/08/16 08:38 87 05/08/16 07:02 98.2 18 125/82 97 05/08/16 05:27 Aerosol 8.0 35 T Tube Intake and Output 05/07/16 05/07/16 05/08/16 15:00 23:00 07:00 Intake Total 50 ml 1110 ml Output Total 1600 ml Balance 50 ml -490 ml Exam Constitutional: alert, frail Psych: no complaints Eyes: EOMI, PERRL, nl sclera ENMT: nl external ears & nose Neck: non-tender Respiratory: clear to auscultation, other (trach intact.) Cardiovascular: nl pulses Gastrointestinal: non-tender, soft Musculoskeletal: muscle weakness Extremities: normal pulses Neurological: other (alert, awake, follows simple commands.very pleasant) Skin: other Lymph: nontender Results Result Diagram: 05/08/16 0555 05/08/16 0555 Results 24 hrs Laboratory Tests Test 05/07/16 11:48 05/07/16 12:20 05/07/16 17:54 05/07/16 20:56 Bedside Glucose 104 161 104 White Blood Count 6.3 # Red Blood Count 2.83 L Hemoglobin 8.6 L Hematocrit 27.7 L Mean Corpuscular Volume 97.9 Mean Corpuscular Hemoglobin 30.4 Mean Corpuscular Hemoglobin Concent 31.0 L Red Cell Distribution Width 15.4 H Platelet Count 169 Mean Platelet Volume 10.4 Neutrophils % 76.1 Lymphocytes % 10.6 L Monocytes % 9.8 Eosinophils % 2.8 Basophils % 0.2 Nucleated Red Blood Cells % 0.0 Neutrophils # 4.8 Lymphocytes # 0.7 L Monocytes # 0.6 Eosinophils # 0.2 Basophils # 0.0 Nucleated Red Blood Cells # 0.0 Sodium Level 138 Potassium Level 4.0 Chloride Level 103 # Carbon Dioxide Level 28 Anion Gap 11 Blood Urea Nitrogen 60 H Creatinine 2.09 H Glucose Level 96 # Calcium Level 8.6 Test 05/08/16 05:55 05/08/16 07:56 White Blood Count 6.2 Red Blood Count 3.02 L Hemoglobin 9.2 L Hematocrit 30.0 L Mean Corpuscular Volume 99.3 Mean Corpuscular Hemoglobin 30.5 Mean Corpuscular Hemoglobin Concent 30.7 L Red Cell Distribution Width 15.0 H Platelet Count 170 Mean Platelet Volume 10.7 H Neutrophils % 72.1 Lymphocytes % 11.7 L Monocytes % 12.1 H Eosinophils % 3.4 Basophils % 0.2 Nucleated Red Blood Cells % 0.0 Neutrophils # 4.5 Lymphocytes # 0.7 L Monocytes # 0.8 Eosinophils # 0.2 Basophils # 0.0 Nucleated Red Blood Cells # 0.0 Sodium Level 144 Potassium Level 4.2 Chloride Level 105 Carbon Dioxide Level 29 Anion Gap 14 Blood Urea Nitrogen 55 H Creatinine 2.12 H Glucose Level 113 Calcium Level 8.9 Bedside Glucose 93 Medications Medications Current Medications Enoxaparin Sodium (Lovenox) 30 mg DAILY SC Last administered on 05/08/16 09:58 ; Admin Dose 30 MG; Start 05/04/16 at 09:00 Pantoprazole 40 mg 40 mg DAILY@06 PO Last administered on 05/08/16 05:52; Admin Dose 40 MG; Start 05/04/16 at 06:00 Cefepime HCl (Maxipime 1gm/50 ml (Pmx)) 50 ml @ 100 mls/hr Q12 IVPB Last administered on 05/08/16 09:44; Admin Dose 100 MLS/HR; Start 05/03/16 at 23:00 Hydromorphone HCl (Dilaudid) 1 mg Q4 PRN IV SEVERE PAIN LEVEL 7-10 Last administered on 05/08/16 06:07; Admin Dose 1 MG; Start 05/03/16 at 18:30 Citric Acid/ Sodium Citrate (Bicitra) 30 ml TID PO Last administered on 09:44; Admin Dose 30 ML; Start 05/04/16 at 13:00 Silver Nitrate 1 stick 1 stick Q7D TOP Last administered on 05/05/16 18:05; Admin Dose 1 STICK; Start 05/05/16 at 16:30; Stop 05/12/16 at 16:31 Norepinephrine/ Dextrose (Levophed/D5W) 500 ml @ 1.87 mls/hr TITRATE IV ; Start 05/05/16 at 20:00 Zolpidem Tartrate (Ambien) 5 mg HS PRN PO INSOMNIA Last administered on 21:07; Admin Dose 5 MG; Start 05/05/16 at 20:30 IV Flush (NS 10 ml) 10 ml PRN PRN IV IV PROTOCOL; Start 05/06/16 at 12:30 Doxycycline Hyclate (Vibramycin) 100 mg BID PO Last administered on 05/08/16 09 :44; Admin Dose 100 MG; Start 05/06/16 at 21:00 Diagnostic Test (Pha) (Accu-Chek) 1 ea 02 XX Last administered on 05/07/16 02: 06; Admin Dose 1 EA; Start 05/07/16 at 02:00 Miscellaneous Information 1 ea NOTE XX ; Start 05/06/16 at 15:30 Glucose (Glutose) 15 gm Q15M PRN PO DECREASED GLUCOSE; Start 05/06/16 at 15:30 Glucose (Glutose) 22.5 gm Q15M PRN PO DECREASED GLUCOSE; Start 05/06/16 at 15: 30 Dextrose (D50w Syringe) 25 ml Q15M PRN IV DECREASED GLUCOSE; Start 05/06/16 at 15:30 Dextrose (D50w Syringe) 50 ml Q15M PRN IV DECREASED GLUCOSE; Start 05/06/16 at 15:30 Glucagon (Glucagen) 1 mg Q15M PRN IM DECREASED GLUCOSE; Start 05/06/16 at 15:30 Glucose (Glutose) 15 gm Q15M PRN BUCCAL DECREASED GLUCOSE; Start 05/06/16 at 15 :30 Gabapentin (Neurontin Liquid) 100 mg TID GTB ; Start 05/07/16 at 22:00 NAE VELAZCO May 08, 2016 10:46
--- NOTE | 2016-05-08 11:37 | PN ---
Date/Time of Note Date/Time of Note DATE: 05/08/16 TIME: 11:37 Assessment/Plan VTE Prophylaxis VTE Prophylaxis Intervention: other Lines/Catheters IV Catheter Type (from Nrs): PICC Line Central line still needed: Yes Urinary Cath still in place: Yes (suprapubic) Reason Cath still needed: skin wounds contaminated by urine Assessment/Plan Chief Complaint/Hosp Course 1. Polymicrobial Urinary tract infection per UA. Continue antibiotics. Dr. Maciel is following patient in infection disease consultation. 2. Acute kidney injury on top of chronic kidney disease. Dr. Barker is following the patient in nephrology consultation. 3. Ventilator-dependent respiratory failure with tracheostomy. is following patient in pulmonary consultation. Continue bronchodilators and ventilatory support. 4. Multiple decubitus ulcers present on admission. Continue zinc sulfate, multivitamins and offloading and current wound care. 5. Cervical spine injury with paraplegia. 6. Bipolar disorder with psychosis. Continue patient on risperidone b.i.d. and Lexapro. 7. Iron deficiency anemia. Continue patient on iron supplements. 8. Neurogenic bladder with suprapubic catheter. 9. Dysphagia with PEG. Problems: Subjective 24 Hr Interval Summary Free Text/Dictation Patient has no complaints Exam/Review of Systems Vital Signs Vitals Vital Signs Date Time Temp Pulse Resp B/P Pulse Ox O2 Delivery O2 Flow Rate FiO2 05/08/16 11:31 98.5 85 18 102/55 96 05/08/16 05:27 Aerosol 8.0 35 T Tube Intake and Output 05/07/16 05/07/16 05/08/16 15:00 23:00 07:00 Intake Total 50 ml 1110 ml Output Total 1600 ml Balance 50 ml -490 ml Exam Constitutional: well developed Head: atraumatic, normocephalic Neck: supple Respiratory: clear to auscultation Cardiovascular: regular rate and rhythm Gastrointestinal: non-tender, soft Results Result Diagram: 05/08/16 0555 05/08/16 0555 Results 24 hrs Laboratory Tests Test 05/07/16 11:48 05/07/16 12:20 05/07/16 17:54 05/07/16 20:56 Bedside Glucose 104 161 104 White Blood Count 6.3 # Red Blood Count 2.83 L Hemoglobin 8.6 L Hematocrit 27.7 L Mean Corpuscular Volume 97.9 Mean Corpuscular Hemoglobin 30.4 Mean Corpuscular Hemoglobin Concent 31.0 L Red Cell Distribution Width 15.4 H Platelet Count 169 Mean Platelet Volume 10.4 Neutrophils % 76.1 Lymphocytes % 10.6 L Monocytes % 9.8 Eosinophils % 2.8 Basophils % 0.2 Nucleated Red Blood Cells % 0.0 Neutrophils # 4.8 Lymphocytes # 0.7 L Monocytes # 0.6 Eosinophils # 0.2 Basophils # 0.0 Nucleated Red Blood Cells # 0.0 Sodium Level 138 Potassium Level 4.0 Chloride Level 103 # Carbon Dioxide Level 28 Anion Gap 11 Blood Urea Nitrogen 60 H Creatinine 2.09 H Glucose Level 96 # Calcium Level 8.6 Test 05/08/16 05:55 05/08/16 07:56 White Blood Count 6.2 Red Blood Count 3.02 L Hemoglobin 9.2 L Hematocrit 30.0 L Mean Corpuscular Volume 99.3 Mean Corpuscular Hemoglobin 30.5 Mean Corpuscular Hemoglobin Concent 30.7 L Red Cell Distribution Width 15.0 H Platelet Count 170 Mean Platelet Volume 10.7 H Neutrophils % 72.1 Lymphocytes % 11.7 L Monocytes % 12.1 H Eosinophils % 3.4 Basophils % 0.2 Nucleated Red Blood Cells % 0.0 Neutrophils # 4.5 Lymphocytes # 0.7 L Monocytes # 0.8 Eosinophils # 0.2 Basophils # 0.0 Nucleated Red Blood Cells # 0.0 Sodium Level 144 Potassium Level 4.2 Chloride Level 105 Carbon Dioxide Level 29 Anion Gap 14 Blood Urea Nitrogen 55 H Creatinine 2.12 H Glucose Level 113 Calcium Level 8.9 Bedside Glucose 93 Medications Medications Current Medications Enoxaparin Sodium (Lovenox) 30 mg DAILY SC Last administered on 05/08/16 09:58 ; Admin Dose 30 MG; Start 05/04/16 at 09:00 Pantoprazole 40 mg 40 mg DAILY@06 PO Last administered on 05/08/16 05:52; Admin Dose 40 MG; Start 05/04/16 at 06:00 Cefepime HCl (Maxipime 1gm/50 ml (Pmx)) 50 ml @ 100 mls/hr Q12 IVPB Last administered on 05/08/16 09:44; Admin Dose 100 MLS/HR; Start 05/03/16 at 23:00 Hydromorphone HCl (Dilaudid) 1 mg Q4 PRN IV SEVERE PAIN LEVEL 7-10 Last administered on 05/08/16 10:50; Admin Dose 1 MG; Start 05/03/16 at 18:30 Citric Acid/ Sodium Citrate (Bicitra) 30 ml TID PO Last administered on 09:44; Admin Dose 30 ML; Start 05/04/16 at 13:00 Silver Nitrate 1 stick 1 stick Q7D TOP Last administered on 05/05/16 18:05; Admin Dose 1 STICK; Start 05/05/16 at 16:30; Stop 05/12/16 at 16:31 Norepinephrine/ Dextrose (Levophed/D5W) 500 ml @ 1.87 mls/hr TITRATE IV ; Start 05/05/16 at 20:00 Zolpidem Tartrate (Ambien) 5 mg HS PRN PO INSOMNIA Last administered on 21:07; Admin Dose 5 MG; Start 05/05/16 at 20:30 IV Flush (NS 10 ml) 10 ml PRN PRN IV IV PROTOCOL; Start 05/06/16 at 12:30 Doxycycline Hyclate (Vibramycin) 100 mg BID PO Last administered on 05/08/16 09 :44; Admin Dose 100 MG; Start 05/06/16 at 21:00 Diagnostic Test (Pha) (Accu-Chek) 1 ea 02 XX Last administered on 05/07/16 02: 06; Admin Dose 1 EA; Start 05/07/16 at 02:00 Miscellaneous Information 1 ea NOTE XX ; Start 05/06/16 at 15:30 Glucose (Glutose) 15 gm Q15M PRN PO DECREASED GLUCOSE; Start 05/06/16 at 15:30 Glucose (Glutose) 22.5 gm Q15M PRN PO DECREASED GLUCOSE; Start 05/06/16 at 15: 30 Dextrose (D50w Syringe) 25 ml Q15M PRN IV DECREASED GLUCOSE; Start 05/06/16 at 15:30 Dextrose (D50w Syringe) 50 ml Q15M PRN IV DECREASED GLUCOSE; Start 05/06/16 at 15:30 Glucagon (Glucagen) 1 mg Q15M PRN IM DECREASED GLUCOSE; Start 05/06/16 at 15:30 Glucose (Glutose) 15 gm Q15M PRN BUCCAL DECREASED GLUCOSE; Start 05/06/16 at 15 :30 Gabapentin (Neurontin Liquid) 100 mg TID GTB ; Start 05/07/16 at 22:00 DANAY MUIR May 08, 2016 11:37
--- NOTE | 2016-05-08 14:21 | CONS ---
Date/Time of Note Date/Time of Note DATE: 05/08/16 TIME: 14:20 Assessment/Plan Assessment/Plan Additional Assessment/Plan Acute kidney injury Hypotension, improved Sepsis Respiratory Failure Preserved EF on echocardiogram March 02, 2016 History of intermittent Mobitz I Chronic pain syndrome -Blood pressure trend overall remained stable. IV fluids as per our nephrology colleagues. No antihypertensive medications at the current time. Avoid any nephrotoxic medications as well. Consultation Date/Type/Reason Admit Date/Time May 04, 2016 at 12:27 Initial Consult Date 05/05/16 Type of Consultation: cv Referring Provider: JOSÉ ANTONIO MIRZA MD 24 HR Interval Summary Free Text/Dictation Denies chest pain, shortness of breath Exam/Review of Systems Vital Signs Vitals Vital Signs Date Time Temp Pulse Resp B/P Pulse Ox O2 Delivery O2 Flow Rate FiO2 05/08/16 12:17 85 05/08/16 11:31 98.5 18 102/55 96 05/08/16 05:27 Aerosol 8.0 35 T Tube Intake and Output 05/07/16 05/07/16 05/08/16 14:59 22:59 06:59 Intake Total 50 ml 1110 ml Output Total 1600 ml Balance 50 ml -490 ml Exam No apparent distress Constitutional: alert, frail, oriented Head: normocephalic Neck: supple Respiratory: other (Coarse breath sounds bilaterally, no wheezing) Cardiovascular: other (S1-S2 heard), regular rate and rhythm Gastrointestinal: bowel sounds, non-tender, other (No guarding), soft Extremities: other (No edema or cyanosis) Results Result Diagram: 05/08/16 0555 05/08/16 0555 Results 24 hrs Laboratory Tests Test 05/07/16 17:54 05/07/16 20:56 05/08/16 05:55 05/08/16 07:56 Bedside Glucose 161 104 93 White Blood Count 6.2 Red Blood Count 3.02 L Hemoglobin 9.2 L Hematocrit 30.0 L Mean Corpuscular Volume 99.3 Mean Corpuscular Hemoglobin 30.5 Mean Corpuscular Hemoglobin Concent 30.7 L Red Cell Distribution Width 15.0 H Platelet Count 170 Mean Platelet Volume 10.7 H Neutrophils % 72.1 Lymphocytes % 11.7 L Monocytes % 12.1 H Eosinophils % 3.4 Basophils % 0.2 Nucleated Red Blood Cells % 0.0 Neutrophils # 4.5 Lymphocytes # 0.7 L Monocytes # 0.8 Eosinophils # 0.2 Basophils # 0.0 Nucleated Red Blood Cells # 0.0 Sodium Level 144 Potassium Level 4.2 Chloride Level 105 Carbon Dioxide Level 29 Anion Gap 14 Blood Urea Nitrogen 55 H Creatinine 2.12 H Glucose Level 113 Calcium Level 8.9 Test 05/08/16 12:06 Bedside Glucose 116 Medications Medications Current Medications Enoxaparin Sodium (Lovenox) 30 mg DAILY SC Last administered on 05/08/16 09:58 ; Admin Dose 30 MG; Start 05/04/16 at 09:00 Pantoprazole 40 mg 40 mg DAILY@06 PO Last administered on 05/08/16 05:52; Admin Dose 40 MG; Start 05/04/16 at 06:00 Cefepime HCl (Maxipime 1gm/50 ml (Pmx)) 50 ml @ 100 mls/hr Q12 IVPB Last administered on 05/08/16 09:44; Admin Dose 100 MLS/HR; Start 05/03/16 at 23:00 Hydromorphone HCl (Dilaudid) 1 mg Q4 PRN IV SEVERE PAIN LEVEL 7-10 Last administered on 05/08/16 10:50; Admin Dose 1 MG; Start 05/03/16 at 18:30 Citric Acid/ Sodium Citrate (Bicitra) 30 ml TID PO Last administered on 12:57; Admin Dose 30 ML; Start 05/04/16 at 13:00 Silver Nitrate 1 stick 1 stick Q7D TOP Last administered on 05/05/16 18:05; Admin Dose 1 STICK; Start 05/05/16 at 16:30; Stop 05/12/16 at 16:31 Norepinephrine/ Dextrose (Levophed/D5W) 500 ml @ 1.87 mls/hr TITRATE IV ; Start 05/05/16 at 20:00 Zolpidem Tartrate (Ambien) 5 mg HS PRN PO INSOMNIA Last administered on 21:07; Admin Dose 5 MG; Start 05/05/16 at 20:30 IV Flush (NS 10 ml) 10 ml PRN PRN IV IV PROTOCOL; Start 05/06/16 at 12:30 Doxycycline Hyclate (Vibramycin) 100 mg BID PO Last administered on 05/08/16 09 :44; Admin Dose 100 MG; Start 05/06/16 at 21:00 Diagnostic Test (Pha) (Accu-Chek) 1 ea 02 XX Last administered on 05/07/16 02: 06; Admin Dose 1 EA; Start 05/07/16 at 02:00 Miscellaneous Information 1 ea NOTE XX ; Start 05/06/16 at 15:30 Glucose (Glutose) 15 gm Q15M PRN PO DECREASED GLUCOSE; Start 05/06/16 at 15:30 Glucose (Glutose) 22.5 gm Q15M PRN PO DECREASED GLUCOSE; Start 05/06/16 at 15: 30 Dextrose (D50w Syringe) 25 ml Q15M PRN IV DECREASED GLUCOSE; Start 05/06/16 at 15:30 Dextrose (D50w Syringe) 50 ml Q15M PRN IV DECREASED GLUCOSE; Start 05/06/16 at 15:30 Glucagon (Glucagen) 1 mg Q15M PRN IM DECREASED GLUCOSE; Start 05/06/16 at 15:30 Glucose (Glutose) 15 gm Q15M PRN BUCCAL DECREASED GLUCOSE; Start 05/06/16 at 15 :30 Gabapentin (Neurontin Liquid) 100 mg TID GTB Last administered on 05/08/16 12: 57; Admin Dose 100 MG; Start 05/07/16 at 22:00 Deandre Chavez DO May 08, 2016 14:21
--- NOTE | 2016-05-08 16:00 | PN ---
DATE: 05/08/2016 The patient is breathing comfortably off ventilator support. VITAL SIGNS: Stable. Blood pressure is 102/55, temperature is 98.5, pulse rate is 85, respiration 18, pulse oximetry 96% saturation. LUNGS: No shortness of breath is seen. GENERAL: He is eating more. No vomiting. NECK: Tracheostomy secretions are clear. No bleeding is seen. HEART: Regular rate and rhythm. CHEST: Lung tierney are clear bilaterally. ABDOMEN: Soft, nontender. Normal bowel sounds. EXTREMITIES: Show no edema. He is paraplegic. LABORATORY DATA: Show WBC 6200, hemoglobin 9.2, hematocrit 30, platelets within normal limits. The chemistry results show sodium 144, potassium 4.2, BUN is 55, creatinine is 2.12, glucose is 113. IMPRESSION: 1. Urosepsis. 2. Chronic respiratory failure. 3. Chronic kidney disease, improving. 4. Chronic anemia. 5. Spinal cord injury with paraplegia. 6. Status post tracheostomy. 7. Status post gastrostomy. 8. Status post suprapubic cystostomy. PLAN: 1. Continue antibiotics as per the infectious disease search engine optimization consultant. 2. Continue bronchodilator inhalation therapy to improve pulmonary clearance. 3. Watch the patient's respiratory status closely and monitor for any respiratory decompensation. I f occur, he will need to be placed on ventilator support through tracheostomy again. Dictated By: HUMBERTO PEREZ MD SR/NTS Conf#: [id number] DID#: [id number] CC: JOSÉ ANTONIO MIRZA MD;*End*
--- NOTE | 2016-05-08 18:01 | CONS ---
Date/Time of Note Date/Time of Note DATE: 05/08/16 TIME: 17:59 Assessment/Plan Assessment/Plan Chief Complaint/Hosp Course SUBJECTIVE: Alert, no fevers, nad MICROBIOLOGY: Blood culture negative. Urine culture growing MRSA/GNR INDWELLINGS: Trach, PEG and suprapubic catheter. ANTIMICROBIALS: 1. Doxycycline 2. IV Cefepime. DIAGNOSTICS: Chest x-ray on admission revealed no evidence of acute cardiopulmonary disease. PHYSICAL EXAMINATION: GENERAL: This is a chronically ill-appearing, middle-aged white man, who is lying comfortably in bed. HEENT: Head atraumatic, normocephalic. Sclerae anicteric. Buccal mucosa pink. NECK: Supple. Tracheostomy present. CHEST: Chest rise is symmetrical. Breath sounds diminished to the bases. HEART: S1, S2. ABDOMEN: Soft. Bowel tones present. EXTREMITIES: Wasted, contractured. ASSESSMENT 1. Recurrent sepsis ==> s/p shock. 2. Polymicrobial urinary tract infection. 3. Quadriplegia secondary to C-spine injury. 4. Neurogenic bladder, with a suprapubic catheter. 5. Acute on chronic kidney disease. 6. History of right nephrectomy. PLAN: Continues to improve, continue abx for 7 more days DW staff Problems: Consultation Date/Type/Reason Admit Date/Time May 04, 2016 at 12:27 Initial Consult Date 05/05/16 Type of Consultation: id Referring Provider: JOSÉ ANTONIO MIRZA MD Exam/Review of Systems Vital Signs Vitals Vital Signs Date Time Temp Pulse Resp B/P Pulse Ox O2 Delivery O2 Flow Rate FiO2 05/08/16 16:50 105/69 98 Trach Collar 05/08/16 16:19 77 05/08/16 15:16 98.7 18 05/08/16 05:27 8.0 35 Intake and Output 05/07/16 05/07/16 05/08/16 15:00 23:00 07:00 Intake Total 1000 ml 1110 ml Output Total 2100 ml 1600 ml Balance -1100 ml -490 ml Results Result Diagram: 05/08/16 0555 05/08/16 0555 Results 24 hrs Laboratory Tests Test 05/07/16 20:56 05/08/16 05:55 05/08/16 07:56 05/08/16 12:06 Bedside Glucose 104 93 116 White Blood Count 6.2 Red Blood Count 3.02 L Hemoglobin 9.2 L Hematocrit 30.0 L Mean Corpuscular Volume 99.3 Mean Corpuscular Hemoglobin 30.5 Mean Corpuscular Hemoglobin Concent 30.7 L Red Cell Distribution Width 15.0 H Platelet Count 170 Mean Platelet Volume 10.7 H Neutrophils % 72.1 Lymphocytes % 11.7 L Monocytes % 12.1 H Eosinophils % 3.4 Basophils % 0.2 Nucleated Red Blood Cells % 0.0 Neutrophils # 4.5 Lymphocytes # 0.7 L Monocytes # 0.8 Eosinophils # 0.2 Basophils # 0.0 Nucleated Red Blood Cells # 0.0 Sodium Level 144 Potassium Level 4.2 Chloride Level 105 Carbon Dioxide Level 29 Anion Gap 14 Blood Urea Nitrogen 55 H Creatinine 2.12 H Glucose Level 113 Calcium Level 8.9 Test 05/08/16 17:12 Bedside Glucose 100 Medications Medications Current Medications Enoxaparin Sodium (Lovenox) 30 mg DAILY SC Last administered on 05/08/16 09:58 ; Admin Dose 30 MG; Start 05/04/16 at 09:00 Pantoprazole 40 mg 40 mg DAILY@06 PO Last administered on 05/08/16 05:52; Admin Dose 40 MG; Start 05/04/16 at 06:00 Cefepime HCl (Maxipime 1gm/50 ml (Pmx)) 50 ml @ 100 mls/hr Q12 IVPB Last administered on 05/08/16 09:44; Admin Dose 100 MLS/HR; Start 05/03/16 at 23:00 Hydromorphone HCl (Dilaudid) 1 mg Q4 PRN IV SEVERE PAIN LEVEL 7-10 Last administered on 05/08/16 17:06; Admin Dose 1 MG; Start 05/03/16 at 18:30 Citric Acid/ Sodium Citrate (Bicitra) 30 ml TID PO Last administered on 12:57; Admin Dose 30 ML; Start 05/04/16 at 13:00 Silver Nitrate 1 stick 1 stick Q7D TOP Last administered on 05/05/16 18:05; Admin Dose 1 STICK; Start 05/05/16 at 16:30; Stop 05/12/16 at 16:31 Norepinephrine/ Dextrose (Levophed/D5W) 500 ml @ 1.87 mls/hr TITRATE IV ; Start 05/05/16 at 20:00 Zolpidem Tartrate (Ambien) 5 mg HS PRN PO INSOMNIA Last administered on 21:07; Admin Dose 5 MG; Start 05/05/16 at 20:30 IV Flush (NS 10 ml) 10 ml PRN PRN IV IV PROTOCOL; Start 05/06/16 at 12:30 Doxycycline Hyclate (Vibramycin) 100 mg BID PO Last administered on 05/08/16 09 :44; Admin Dose 100 MG; Start 05/06/16 at 21:00 Diagnostic Test (Pha) (Accu-Chek) 1 ea 02 XX Last administered on 05/07/16 02: 06; Admin Dose 1 EA; Start 05/07/16 at 02:00 Miscellaneous Information 1 ea NOTE XX ; Start 05/06/16 at 15:30 Glucose (Glutose) 15 gm Q15M PRN PO DECREASED GLUCOSE; Start 05/06/16 at 15:30 Glucose (Glutose) 22.5 gm Q15M PRN PO DECREASED GLUCOSE; Start 05/06/16 at 15: 30 Dextrose (D50w Syringe) 25 ml Q15M PRN IV DECREASED GLUCOSE; Start 05/06/16 at 15:30 Dextrose (D50w Syringe) 50 ml Q15M PRN IV DECREASED GLUCOSE; Start 05/06/16 at 15:30 Glucagon (Glucagen) 1 mg Q15M PRN IM DECREASED GLUCOSE; Start 05/06/16 at 15:30 Glucose (Glutose) 15 gm Q15M PRN BUCCAL DECREASED GLUCOSE; Start 05/06/16 at 15 :30 Gabapentin (Neurontin Liquid) 100 mg TID GTB Last administered on 05/08/16 12: 57; Admin Dose 100 MG; Start 05/07/16 at 22:00 REGINALDO CHERY NP May 08, 2016 18:01
[2016-05-08] MEDS: ZOLPIDEM 5 MG TAB PO PRN (21:12)
[2016-05-09] VITALS (11 sets, daily range): BP systolic 98–121; BP diastolic 58–80; PULSE 75–89; RESP 18–20
[2016-05-09] MEDS: ACCU-CHEK XX SCH (02:00)
[2016-05-09] MEDS: PANTOPRAZOLE (EC) 40 MG TAB PO SCH (05:12)
[2016-05-09] MEDS: HYDROmorphONE 1 MG/ML SYG IV PRN ×5 (05:13→22:08)
[2016-05-09] MEDS: INSULIN ASPART [NOVOLOG] 3 ML PEN SC SCH ×4 (07:55→20:40)
[2016-05-09] MEDS: CITRIC ACID/NA CITRATE 30 ML CUP PO SCH ×3 (09:29→20:40)
[2016-05-09] MEDS: DOXYCYCLINE 100 MG TAB PO SCH ×2 (09:30→20:40)
[2016-05-09] MEDS: GABAPENTIN (50 MG/ML PO SYG) GTB SCH ×3 (09:30→20:40)
[2016-05-09] MEDS: ENOXAPARIN 30 MG/0.3 ML SYG SC SCH (09:35)
[2016-05-09] MEDS: CEFEPIME 1GM/50 ML (PMX) 50 ML IVPB SCH ×2 (09:36→20:40)
[2016-05-09 10:33] LABS: ADD SCAN DIFF NO
[2016-05-09 10:37] LABS: ABNORMAL IP MESSAGE 1; BASOPHILS % 0.2 % (0.0-2.0); EOSINOPHILS # 0.3 10^3/ul (0.0-0.5); EOSINOPHILS % 5.2 % (0.0-7.0); HEMATOCRIT 26.8 % (42.0-52.0); LYMPHOCYTES # 0.6 10^3/ul (0.8-2.9); LYMPHOCYTES % 11.2 % (15.0-51.0); MEAN CORPUSCULAR HEMOGLOBIN 30.3 pg (29.0-33.0); MEAN CORPUSCULAR HGB CONC 29.9 g/dl (32.0-37.0); MEAN CORPUSCULAR VOLUME 101.5 fl (82.0-101.0); MEAN PLATELET VOLUME 10.1 fl (7.4-10.4); MONOCYTE # 0.7 10^3/ul (0.3-0.9); MONOCYTES % 12.6 % (0.0-11.0); NEUTROPHIL # 3.7 10^3/ul (1.6-7.5); NEUTROPHILS % 70.6 % (39.0-77.0); PLATELET COUNT 130 10^3/UL (140-415); RED BLOOD COUNT 2.64 10^6/ul (4.70-6.10); RED CELL DISTRIBUTION WIDTH 14.7 % (11.5-14.5); WHITE BLOOD COUNT 5.2 10^3/ul (4.8-10.8)
[2016-05-09 10:48] LABS: POTASSIUM 3.5 mmol/L (3.5-5.1)
[2016-05-09 10:51] LABS: CALCIUM 7.2 mg/dl (8.4-10.2); CREATININE 1.51 mg/dl (0.61-1.24)
--- NOTE | 2016-05-09 12:23 | CONS ---
Date/Time of Note Date/Time of Note DATE: 05/09/16 TIME: 12:22 Assessment/Plan Assessment/Plan Additional Assessment/Plan 1. Acute kidney injury secondary to severe prerenal azotemia and possible acute tubular necrosis from sepsis secondary to urinary tract infection. 2. Acute uremia with a BUN of 131.- slowly improving with D5W 3. Metabolic acidosis due to the worsening renal failure. 4. Urinary tract infection with urinalysis positive for nitrites. on IV abx 5. 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 6. History of neurogenic bladder with urinary retention, status post suprapubic catheter. 7. History of previous recurrent urinary tract infections. 8. 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 9. 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 10. Other medical history includes anxiety, depression, bipolar disorder, psychosis. 11. History of right nephrectomy with left renal nephrolithiasis and a left renal cyst measuring 5.3 cm in size. 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 helper has been following will follow up Consultation Date/Type/Reason Admit Date/Time Initial Consult Date 05/03/2016 Type of Consultation: NEPHROLOGY Referring Provider: JOSÉ ANTONIO MIRZA MD Exam/Review of Systems Vital Signs Vitals Vital Signs Date Time Temp Pulse Resp B/P Pulse Ox O2 Delivery O2 Flow Rate FiO2 05/09/16 11:50 98.4 88 18 98/58 98 05/09/16 08:08 8.0 35 05/09/16 08:08 Aerosol T Tube Intake and Output 05/08/16 05/08/16 05/09/16 15:00 23:00 07:00 Intake Total 50 ml 970 ml 1125 ml Output Total 1700 ml 1000 ml Balance 50 ml -730 ml 125 ml Results Result Diagram: 05/09/16 1020 05/09/16 1020 Results 24 hrs Laboratory Tests Test 05/08/16 17:12 05/08/16 21:11 05/09/16 07:58 05/09/16 10:20 Bedside Glucose 100 109 81 White Blood Count 5.2 Red Blood Count 2.64 L Hemoglobin 8.0 L Hematocrit 26.8 L Mean Corpuscular Volume 101.5 H Mean Corpuscular Hemoglobin 30.3 Mean Corpuscular Hemoglobin Concent 29.9 L Red Cell Distribution Width 14.7 H Platelet Count 130 #L Mean Platelet Volume 10.1 Neutrophils % 70.6 Lymphocytes % 11.2 L Monocytes % 12.6 H Eosinophils % 5.2 Basophils % 0.2 Nucleated Red Blood Cells % 0.0 Neutrophils # 3.7 Lymphocytes # 0.6 L Monocytes # 0.7 Eosinophils # 0.3 Basophils # 0.0 Nucleated Red Blood Cells # 0.0 Sodium Level 141 Potassium Level 3.5 Chloride Level 115 H Carbon Dioxide Level 24 Anion Gap 6 #L Blood Urea Nitrogen 41 #H Creatinine 1.51 H Glucose Level 90 Calcium Level 7.2 L Medications Medications Current Medications Enoxaparin Sodium (Lovenox) 30 mg DAILY SC Last administered on 05/09/16 09:35 ; Admin Dose 30 MG; Start 05/04/16 at 09:00 Pantoprazole 40 mg 40 mg DAILY@06 PO Last administered on 05/09/16 05:12; Admin Dose 40 MG; Start 05/04/16 at 06:00 Cefepime HCl (Maxipime 1gm/50 ml (Pmx)) 50 ml @ 100 mls/hr Q12 IVPB Last administered on 05/09/16 09:36; Admin Dose 100 MLS/HR; Start 05/03/16 at 23:00 Hydromorphone HCl (Dilaudid) 1 mg Q4 PRN IV SEVERE PAIN LEVEL 7-10 Last administered on 05/09/16 10:01; Admin Dose 1 MG; Start 05/03/16 at 18:30 Citric Acid/ Sodium Citrate (Bicitra) 30 ml TID PO Last administered on 09:29; Admin Dose 30 ML; Start 05/04/16 at 13:00 Silver Nitrate 1 stick 1 stick Q7D TOP Last administered on 05/05/16 18:05; Admin Dose 1 STICK; Start 05/05/16 at 16:30; Stop 05/12/16 at 16:31 Norepinephrine/ Dextrose (Levophed/D5W) 500 ml @ 1.87 mls/hr TITRATE IV ; Start 05/05/16 at 20:00 Zolpidem Tartrate (Ambien) 5 mg HS PRN PO INSOMNIA Last administered on 21:12; Admin Dose 5 MG; Start 05/05/16 at 20:30 IV Flush (NS 10 ml) 10 ml PRN PRN IV IV PROTOCOL; Start 05/06/16 at 12:30 Doxycycline Hyclate (Vibramycin) 100 mg BID PO Last administered on 05/09/16 09 :30; Admin Dose 100 MG; Start 05/06/16 at 21:00 Diagnostic Test (Pha) (Accu-Chek) 1 ea 02 XX Last administered on 05/07/16 02: 06; Admin Dose 1 EA; Start 05/07/16 at 02:00 Miscellaneous Information 1 ea NOTE XX ; Start 05/06/16 at 15:30 Glucose (Glutose) 15 gm Q15M PRN PO DECREASED GLUCOSE; Start 05/06/16 at 15:30 Glucose (Glutose) 22.5 gm Q15M PRN PO DECREASED GLUCOSE; Start 05/06/16 at 15: 30 Dextrose (D50w Syringe) 25 ml Q15M PRN IV DECREASED GLUCOSE; Start 05/06/16 at 15:30 Dextrose (D50w Syringe) 50 ml Q15M PRN IV DECREASED GLUCOSE; Start 05/06/16 at 15:30 Glucagon (Glucagen) 1 mg Q15M PRN IM DECREASED GLUCOSE; Start 05/06/16 at 15:30 Glucose (Glutose) 15 gm Q15M PRN BUCCAL DECREASED GLUCOSE; Start 05/06/16 at 15 :30 Gabapentin (Neurontin Liquid) 100 mg TID GTB Last administered on 05/09/16 09: 30; Admin Dose 100 MG; Start 05/07/16 at 22:00 TIARA CISNEROS MD May 09, 2016 12:23
--- NOTE | 2016-05-09 14:35 | CONS ---
Date/Time of Note Date/Time of Note DATE: 05/09/16 TIME: 14:34 Assessment/Plan Assessment/Plan Chief Complaint/Hosp Course SUBJECTIVE: Alert, no fevers, nad MICROBIOLOGY: Blood culture negative. Urine culture growing MRSA/GNR INDWELLINGS: Trach, PEG and suprapubic catheter. ANTIMICROBIALS: 1. Doxycycline 2. IV Cefepime. DIAGNOSTICS: Chest x-ray on admission revealed no evidence of acute cardiopulmonary disease. PHYSICAL EXAMINATION: GENERAL: This is a chronically ill-appearing, middle-aged white man, who is lying comfortably in bed. HEENT: Head atraumatic, normocephalic. Sclerae anicteric. Buccal mucosa pink. NECK: Supple. Tracheostomy present. CHEST: Chest rise is symmetrical. Breath sounds diminished to the bases. HEART: S1, S2. ABDOMEN: Soft. Bowel tones present. EXTREMITIES: Wasted, contractured. ASSESSMENT 1. Recurrent sepsis ==> s/p shock. 2. Polymicrobial urinary tract infection. 3. Quadriplegia secondary to C-spine injury. 4. Neurogenic bladder, with a suprapubic catheter. 5. Acute on chronic kidney disease. 6. History of right nephrectomy. PLAN: Continues to improve, continue abx for 6 more days [facility] staff Problems: Consultation Date/Type/Reason Admit Date/Time May 04, 2016 at 12:27 Initial Consult Date 05/05/16 Type of Consultation: id Referring Provider: JOSÉ ANTONIO MIRZA MD Exam/Review of Systems Vital Signs Vitals Vital Signs Date Time Temp Pulse Resp B/P Pulse Ox O2 Delivery O2 Flow Rate FiO2 05/09/16 12:38 18 97 Aerosol 8.0 35 T Tube 05/09/16 12:32 85 05/09/16 11:50 98.4 98/58 Intake and Output 05/08/16 05/08/16 05/09/16 15:00 23:00 07:00 Intake Total 50 ml 970 ml 1125 ml Output Total 1700 ml 1000 ml Balance 50 ml -730 ml 125 ml Results Result Diagram: 05/09/16 1020 05/09/16 1020 Results 24 hrs Laboratory Tests Test 05/08/16 17:12 05/08/16 21:11 05/09/16 07:58 05/09/16 10:20 Bedside Glucose 100 109 81 White Blood Count 5.2 Red Blood Count 2.64 L Hemoglobin 8.0 L Hematocrit 26.8 L Mean Corpuscular Volume 101.5 H Mean Corpuscular Hemoglobin 30.3 Mean Corpuscular Hemoglobin Concent 29.9 L Red Cell Distribution Width 14.7 H Platelet Count 130 #L Mean Platelet Volume 10.1 Neutrophils % 70.6 Lymphocytes % 11.2 L Monocytes % 12.6 H Eosinophils % 5.2 Basophils % 0.2 Nucleated Red Blood Cells % 0.0 Neutrophils # 3.7 Lymphocytes # 0.6 L Monocytes # 0.7 Eosinophils # 0.3 Basophils # 0.0 Nucleated Red Blood Cells # 0.0 Sodium Level 141 Potassium Level 3.5 Chloride Level 115 H Carbon Dioxide Level 24 Anion Gap 6 #L Blood Urea Nitrogen 41 #H Creatinine 1.51 H Glucose Level 90 Calcium Level 7.2 L Medications Medications Current Medications Enoxaparin Sodium (Lovenox) 30 mg DAILY SC Last administered on 05/09/16 09:35 ; Admin Dose 30 MG; Start 05/04/16 at 09:00 Pantoprazole 40 mg 40 mg DAILY@06 PO Last administered on 05/09/16 05:12; Admin Dose 40 MG; Start 05/04/16 at 06:00 Cefepime HCl (Maxipime 1gm/50 ml (Pmx)) 50 ml @ 100 mls/hr Q12 IVPB Last administered on 05/09/16 09:36; Admin Dose 100 MLS/HR; Start 05/03/16 at 23:00 Hydromorphone HCl (Dilaudid) 1 mg Q4 PRN IV SEVERE PAIN LEVEL 7-10 Last administered on 05/09/16 14:10; Admin Dose 1 MG; Start 05/03/16 at 18:30 Citric Acid/ Sodium Citrate (Bicitra) 30 ml TID PO Last administered on 13:08; Admin Dose 30 ML; Start 05/04/16 at 13:00 Silver Nitrate 1 stick 1 stick Q7D TOP Last administered on 05/05/16 18:05; Admin Dose 1 STICK; Start 05/05/16 at 16:30; Stop 05/12/16 at 16:31 Norepinephrine/ Dextrose (Levophed/D5W) 500 ml @ 1.87 mls/hr TITRATE IV ; Start 05/05/16 at 20:00 Zolpidem Tartrate (Ambien) 5 mg HS PRN PO INSOMNIA Last administered on 21:12; Admin Dose 5 MG; Start 05/05/16 at 20:30 IV Flush (NS 10 ml) 10 ml PRN PRN IV IV PROTOCOL; Start 05/06/16 at 12:30 Doxycycline Hyclate (Vibramycin) 100 mg BID PO Last administered on 05/09/16 09 :30; Admin Dose 100 MG; Start 05/06/16 at 21:00 Diagnostic Test (Pha) (Accu-Chek) 1 ea 02 XX Last administered on 05/07/16 02: 06; Admin Dose 1 EA; Start 05/07/16 at 02:00 Miscellaneous Information 1 ea NOTE XX ; Start 05/06/16 at 15:30 Glucose (Glutose) 15 gm Q15M PRN PO DECREASED GLUCOSE; Start 05/06/16 at 15:30 Glucose (Glutose) 22.5 gm Q15M PRN PO DECREASED GLUCOSE; Start 05/06/16 at 15: 30 Dextrose (D50w Syringe) 25 ml Q15M PRN IV DECREASED GLUCOSE; Start 05/06/16 at 15:30 Dextrose (D50w Syringe) 50 ml Q15M PRN IV DECREASED GLUCOSE; Start 05/06/16 at 15:30 Glucagon (Glucagen) 1 mg Q15M PRN IM DECREASED GLUCOSE; Start 05/06/16 at 15:30 Glucose (Glutose) 15 gm Q15M PRN BUCCAL DECREASED GLUCOSE; Start 05/06/16 at 15 :30 Gabapentin (Neurontin Liquid) 100 mg TID GTB Last administered on 05/09/16 13: 09; Admin Dose 100 MG; Start 05/07/16 at 22:00 REGINALDO CHERY NP May 09, 2016 14:35
--- NOTE | 2016-05-09 14:44 | PN ---
DATE: 05/09/2016 SUBJECTIVE: The patient's general condition is same. He is off ventilator now for the past several days, and his breathing seems to be quite comfortable and stable. His vital signs are also stable. OBJECTIVE: VITAL SIGNS: Temperature is 98.3, blood pressure 190/75, pulse rate is 89, respirations 18, pulse o ximetry 98% saturation on 35% oxygen concentration through the tracheostomy. NECK: Tracheal secretions are clear. No bleeding is seen. HEART: Regular rhythm. CHEST: Lung tierney are clear bilaterally. ABDOMEN: Soft. He is tolerating oral feedings. Normal bowel sounds. EXTREMITIES: Show paraplegia, no edema. LABORATORY DATA: WBC count is 5200, hemoglobin 8, hematocrit 26.8, platelets are slightly decreased at 130,000. The chemistry panel shows glucose of 90, BUN 41, creatinine 1.51, sodium 141, potassiu m 3.5. His renal status also seems to be gradually improving. IMPRESSION: 1. Urosepsis. 2. Chronic respiratory failure. 3. Chronic kidney disease, improving. 4. Chronic anemia. 5. Spinal cord injury resulting in paraplegia. 6. Status post tracheostomy. 7. Status post gastrostomy. 8. Status post suprapubic cystostomy. PLAN: 1. Continue antibiotics as per the infectious disease communications consultant. 2. Continue bronchodilator inhalation therapy to the tracheostomy to improve the pulmonary clearanc e of the secretions. 3. Continue to monitor the patient's respiratory status. Dictated By: HUMBERTO PEREZ MD SR/QUE Conf#: [id number] DID#: [id number]
[2016-05-09] MEDS: ALBUTEROL/IPRATROPIUM (NEB) 3 ML AMP HHN PRN (17:05)
--- NOTE | 2016-05-09 17:20 | PN ---
Date/Time of Note Date/Time of Note DATE: 05/09/16 TIME: 17:13 Assessment/Plan VTE Prophylaxis VTE Prophylaxis Intervention: SCD's Lines/Catheters IV Catheter Type (from Nrs): PICC Line Central line still needed: Yes Urinary Cath still in place: Yes (suprapubic catheter) Reason Cath still needed: urinary retention Assessment/Plan Chief Complaint/Hosp Course ASSESSMENT AND PLAN: 1. Polymicrobial Urinary tract infection. Continue antibiotics per ID. Dr. Maciel is following patient in infection disease consultation. 2. Acute kidney injury on top of chronic kidney disease. Dr. Barker is following in nephrology consultation. 3. Ventilator-dependent respiratory failure with tracheostomy. is following patient in pulmonary consultation. Continue bronchodilators and ventilatory support. 4. Multiple decubitus ulcers present on admission. Continue zinc sulfate, multivitamins and offloading and current wound care. 5. Cervical spine injury with paraplegia. 6. Bipolar disorder with psychosis. Continue patient on risperidone b.i.d. and Lexapro. 7. Iron deficiency anemia. Continue patient on iron supplements. 8. Neurogenic bladder with suprapubic catheter. 9. Dysphagia with PEG. Continue Lovenox for deep venous thrombosis prophylaxis and Protonix for peptic ulcer disease prophylaxis. Further recommendations based on clinical course. Plan of care discussed with Dr. Barreto. Problems: Subjective 24 Hr Interval Summary Free Text/Dictation Patient is awake alert, patient is comfortable on T-tube via tracheostomy, tolerates diet well, no nausea vomiting. Exam/Review of Systems Vital Signs Vitals Vital Signs Date Time Temp Pulse Resp B/P Pulse Ox O2 Delivery O2 Flow Rate FiO2 05/09/16 17:06 69 18 100 Aerosol 8.0 35 T Tube 05/09/16 16:04 98.3 116/74 Intake and Output 05/08/16 05/08/16 05/09/16 15:00 23:00 07:00 Intake Total 50 ml 970 ml 1125 ml Output Total 1700 ml 1000 ml Balance 50 ml -730 ml 125 ml Exam PHYSICAL ASSESSMENT: GENERAL: Well-developed, debilitated, cachectic male currently is awake, alert , follows immediate commands. HEENT: Head is atraumatic, normocephalic. PERRLA. NECK: Supple. There is a tracheostomy at the base of the neck with no bleeding. LUNGS: The patient has scattered rhonchi bilaterally, slightly diminished at the bases. There is no wheezing noted. CARDIOVASCULAR: Normal S1, S2. No murmurs, gallops, clicks, rubs noted. The patient is slightly tachycardic. ABDOMEN: Flat, soft, nondistended, nontender. G-tube with intact stoma. The patient also has a suprapubic catheter with intact stoma. EXTREMITIES: Contracted. SKIN: The patient has sacral ulcers present on admission. There is no rash, petechiae noted. NEUROLOGIC: The patient is awake, alert and oriented, following immediate commands, with paraplegia. Results Result Diagram: 05/09/16 1020 05/09/16 1020 Results 24 hrs Laboratory Tests Test 05/08/16 21:11 05/09/16 07:58 05/09/16 10:20 Bedside Glucose 109 81 White Blood Count 5.2 Red Blood Count 2.64 L Hemoglobin 8.0 L Hematocrit 26.8 L Mean Corpuscular Volume 101.5 H Mean Corpuscular Hemoglobin 30.3 Mean Corpuscular Hemoglobin Concent 29.9 L Red Cell Distribution Width 14.7 H Platelet Count 130 #L Mean Platelet Volume 10.1 Neutrophils % 70.6 Lymphocytes % 11.2 L Monocytes % 12.6 H Eosinophils % 5.2 Basophils % 0.2 Nucleated Red Blood Cells % 0.0 Neutrophils # 3.7 Lymphocytes # 0.6 L Monocytes # 0.7 Eosinophils # 0.3 Basophils # 0.0 Nucleated Red Blood Cells # 0.0 Sodium Level 141 Potassium Level 3.5 Chloride Level 115 H Carbon Dioxide Level 24 Anion Gap 6 #L Blood Urea Nitrogen 41 #H Creatinine 1.51 H Glucose Level 90 Calcium Level 7.2 L Medications Medications Current Medications Enoxaparin Sodium (Lovenox) 30 mg DAILY SC Last administered on 05/09/16 09:35 ; Admin Dose 30 MG; Start 05/04/16 at 09:00 Pantoprazole 40 mg 40 mg DAILY@06 PO Last administered on 05/09/16 05:12; Admin Dose 40 MG; Start 05/04/16 at 06:00 Cefepime HCl (Maxipime 1gm/50 ml (Pmx)) 50 ml @ 100 mls/hr Q12 IVPB Last administered on 05/09/16 09:36; Admin Dose 100 MLS/HR; Start 05/03/16 at 23:00 Hydromorphone HCl (Dilaudid) 1 mg Q4 PRN IV SEVERE PAIN LEVEL 7-10 Last administered on 05/09/16 14:10; Admin Dose 1 MG; Start 05/03/16 at 18:30 Citric Acid/ Sodium Citrate (Bicitra) 30 ml TID PO Last administered on 13:08; Admin Dose 30 ML; Start 05/04/16 at 13:00 Silver Nitrate 1 stick 1 stick Q7D TOP Last administered on 05/05/16 18:05; Admin Dose 1 STICK; Start 05/05/16 at 16:30; Stop 05/12/16 at 16:31 Norepinephrine/ Dextrose (Levophed/D5W) 500 ml @ 1.87 mls/hr TITRATE IV ; Start 05/05/16 at 20:00 Zolpidem Tartrate (Ambien) 5 mg HS PRN PO INSOMNIA Last administered on 21:12; Admin Dose 5 MG; Start 05/05/16 at 20:30 IV Flush (NS 10 ml) 10 ml PRN PRN IV IV PROTOCOL; Start 05/06/16 at 12:30 Doxycycline Hyclate (Vibramycin) 100 mg BID PO Last administered on 05/09/16 09 :30; Admin Dose 100 MG; Start 05/06/16 at 21:00 Diagnostic Test (Pha) (Accu-Chek) 1 ea 02 XX Last administered on 05/07/16 02: 06; Admin Dose 1 EA; Start 05/07/16 at 02:00 Miscellaneous Information 1 ea NOTE XX ; Start 05/06/16 at 15:30 Glucose (Glutose) 15 gm Q15M PRN PO DECREASED GLUCOSE; Start 05/06/16 at 15:30 Glucose (Glutose) 22.5 gm Q15M PRN PO DECREASED GLUCOSE; Start 05/06/16 at 15: 30 Dextrose (D50w Syringe) 25 ml Q15M PRN IV DECREASED GLUCOSE; Start 05/06/16 at 15:30 Dextrose (D50w Syringe) 50 ml Q15M PRN IV DECREASED GLUCOSE; Start 05/06/16 at 15:30 Glucagon (Glucagen) 1 mg Q15M PRN IM DECREASED GLUCOSE; Start 05/06/16 at 15:30 Glucose (Glutose) 15 gm Q15M PRN BUCCAL DECREASED GLUCOSE; Start 05/06/16 at 15 :30 Gabapentin (Neurontin Liquid) 100 mg TID GTB Last administered on 05/09/16t 13: 09; Admin Dose 100 MG; Start 05/07/16 at 22:00 AISSATOU DUNCAN May 09, 2016 17:20
[2016-05-09] MEDS: ZOLPIDEM 5 MG TAB PO PRN (20:40)
[2016-05-10] VITALS (12 sets, daily range): BP systolic 92–121; BP diastolic 53–76; PULSE 81–92; RESP 16–20
[2016-05-10] MEDS: ACCU-CHEK XX SCH ×2 (02:00→21:02)
[2016-05-10] MEDS: HYDROmorphONE 1 MG/ML SYG IV PRN ×5 (02:04→18:47)
[2016-05-10] MEDS: PANTOPRAZOLE (EC) 40 MG TAB PO SCH (05:27)
[2016-05-10 07:33] LABS: ADD SCAN DIFF NO
[2016-05-10 07:43] LABS: BASOPHILS % 0.3 % (0.0-2.0); EOSINOPHILS # 0.4 10^3/ul (0.0-0.5); EOSINOPHILS % 5.9 % (0.0-7.0); HEMATOCRIT 31.1 % (42.0-52.0); HEMOGLOBIN 9.1 g/dl (14.0-18.0); LYMPHOCYTES # 0.8 10^3/ul (0.8-2.9); LYMPHOCYTES % 13.4 % (15.0-51.0); MEAN CORPUSCULAR HEMOGLOBIN 29.6 pg (29.0-33.0); MEAN CORPUSCULAR HGB CONC 29.3 g/dl (32.0-37.0); MEAN CORPUSCULAR VOLUME 101.3 fl (82.0-101.0); MEAN PLATELET VOLUME 11.1 fl (7.4-10.4); MONOCYTE # 0.7 10^3/ul (0.3-0.9); MONOCYTES % 11.9 % (0.0-11.0); NEUTROPHIL # 4.1 10^3/ul (1.6-7.5); PLATELET COUNT 130 10^3/UL (140-415); RED BLOOD COUNT 3.07 10^6/ul (4.70-6.10); RED CELL DISTRIBUTION WIDTH 14.4 % (11.5-14.5)
[2016-05-10] MEDS: INSULIN ASPART [NOVOLOG] 3 ML PEN SC SCH ×2 (07:55→11:50)
[2016-05-10 08:07] LABS: POTASSIUM 5.1 mmol/L (3.5-5.1)
[2016-05-10 08:10] LABS: CREATININE 1.99 mg/dl (0.61-1.24)
[2016-05-10 08:11] LABS: CALCIUM 8.6 mg/dl (8.4-10.2)
[2016-05-10] MEDS: GABAPENTIN (50 MG/ML PO SYG) GTB SCH ×3 (09:04→21:02)
[2016-05-10] MEDS: DOXYCYCLINE 100 MG TAB PO SCH ×2 (09:04→21:02)
[2016-05-10] MEDS: CITRIC ACID/NA CITRATE 30 ML CUP PO SCH ×3 (09:04→21:02)
[2016-05-10] MEDS: CEFEPIME 1GM/50 ML (PMX) 50 ML IVPB SCH ×2 (09:04→21:02)
[2016-05-10] MEDS: ENOXAPARIN 30 MG/0.3 ML SYG SC SCH (09:22)
--- NOTE | 2016-05-10 13:11 | CONS ---
Date/Time of Note Date/Time of Note DATE: 05/10/16 TIME: 13:11 Assessment/Plan Assessment/Plan Chief Complaint/Hosp Course SUBJECTIVE: Alert, feels good, no fevers MICROBIOLOGY: Blood culture negative. Urine culture growing MRSA/GNR INDWELLINGS: Trach, PEG and suprapubic catheter. ANTIMICROBIALS: 1. Doxycycline 2. IV Cefepime. DIAGNOSTICS: Chest x-ray on admission revealed no evidence of acute cardiopulmonary disease. PHYSICAL EXAMINATION: GENERAL: This is a chronically ill-appearing, middle-aged white man, who is lying comfortably in bed. HEENT: Head atraumatic, normocephalic. Sclerae anicteric. Buccal mucosa pink. NECK: Supple. Tracheostomy present. CHEST: Chest rise is symmetrical. Breath sounds diminished to the bases. HEART: S1, S2. ABDOMEN: Soft. Bowel tones present. EXTREMITIES: Wasted, contractured. ASSESSMENT 1. Recurrent sepsis ==> s/p shock. 2. Polymicrobial urinary tract infection. 3. Quadriplegia secondary to C-spine injury. 4. Neurogenic bladder, with a suprapubic catheter. 5. Acute on chronic kidney disease. 6. History of right nephrectomy. PLAN: Continues to improve, continue abx for 5 more days [facility] staff Problems: Consultation Date/Type/Reason Admit Date/Time May 04, 2016 at 12:27 Initial Consult Date 05/05/16 Type of Consultation: id Referring Provider: JOSÉ ANTONIO MIRZA MD Exam/Review of Systems Vital Signs Vitals Vital Signs Date Time Temp Pulse Resp B/P Pulse Ox O2 Delivery O2 Flow Rate FiO2 05/10/16 10:42 8.0 35 05/10/16 08:52 83 05/10/16 07:58 97.7 16 95/53 97 05/10/16 01:35 Aerosol Intake and Output 05/09/16 05/09/16 05/10/16 15:00 23:00 07:00 Intake Total 50 ml 1200 ml 400 ml Output Total 1050 ml 400 ml 1500 ml Balance -1000 ml 800 ml -1100 ml Results Result Diagram: 05/10/16 0645 05/10/16 0645 Results 24 hrs Laboratory Tests Test 05/10/16 06:45 White Blood Count 6.0 Red Blood Count 3.07 L Hemoglobin 9.1 L Hematocrit 31.1 L Mean Corpuscular Volume 101.3 H Mean Corpuscular Hemoglobin 29.6 Mean Corpuscular Hemoglobin Concent 29.3 L Red Cell Distribution Width 14.4 Platelet Count 130 L Mean Platelet Volume 11.1 H Neutrophils % 68.0 Lymphocytes % 13.4 L Monocytes % 11.9 H Eosinophils % 5.9 Basophils % 0.3 Nucleated Red Blood Cells % 0.0 Neutrophils # 4.1 Lymphocytes # 0.8 Monocytes # 0.7 Eosinophils # 0.4 Basophils # 0.0 Nucleated Red Blood Cells # 0.0 Sodium Level 138 Potassium Level 5.1 Chloride Level 103 # Carbon Dioxide Level 28 Anion Gap 12 Blood Urea Nitrogen 53 H Creatinine 1.99 H Glucose Level 92 Hemoglobin A1c 4.2 Calcium Level 8.6 Medications Medications Current Medications Enoxaparin Sodium (Lovenox) 30 mg DAILY SC Last administered on 05/10/16 09:22 ; Admin Dose 30 MG; Start 05/04/16 at 09:00 Pantoprazole 40 mg 40 mg DAILY@06 PO Last administered on 05/10/16 05:27; Admin Dose 40 MG; Start 05/04/16 at 06:00 Cefepime HCl (Maxipime 1gm/50 ml (Pmx)) 50 ml @ 100 mls/hr Q12 IVPB Last administered on 05/10/16 09:04; Admin Dose 100 MLS/HR; Start 05/03/16 at 23:00 Hydromorphone HCl (Dilaudid) 1 mg Q4 PRN IV SEVERE PAIN LEVEL 7-10 Last administered on 05/10/16 10:49; Admin Dose 1 MG; Start 05/03/16 at 18:30 Citric Acid/ Sodium Citrate (Bicitra) 30 ml TID PO Last administered on 09:04; Admin Dose 30 ML; Start 05/04/16 at 13:00 Silver Nitrate 1 stick 1 stick Q7D TOP Last administered on 05/05/16 18:05; Admin Dose 1 STICK; Start 05/05/16 at 16:30; Stop 05/12/16 at 16:31 Norepinephrine/ Dextrose (Levophed/D5W) 500 ml @ 1.87 mls/hr TITRATE IV ; Start 05/05/16 at 20:00 Zolpidem Tartrate (Ambien) 5 mg HS PRN PO INSOMNIA Last administered on 20:40; Admin Dose 5 MG; Start 05/05/16 at 20:30 IV Flush (NS 10 ml) 10 ml PRN PRN IV IV PROTOCOL; Start 05/06/16 at 12:30 Doxycycline Hyclate (Vibramycin) 100 mg BID PO Last administered on 05/10/16 09 :04; Admin Dose 100 MG; Start 05/06/16 at 21:00 Diagnostic Test (Pha) (Accu-Chek) 1 ea 02 XX Last administered on 05/07/16 02: 06; Admin Dose 1 EA; Start 05/07/16 at 02:00 Miscellaneous Information 1 ea NOTE XX ; Start 05/06/16 at 15:30 Glucose (Glutose) 15 gm Q15M PRN PO DECREASED GLUCOSE; Start 05/06/16 at 15:30 Glucose (Glutose) 22.5 gm Q15M PRN PO DECREASED GLUCOSE; Start 05/06/16 at 15: 30 Dextrose (D50w Syringe) 25 ml Q15M PRN IV DECREASED GLUCOSE; Start 05/06/16 at 15:30 Dextrose (D50w Syringe) 50 ml Q15M PRN IV DECREASED GLUCOSE; Start 05/06/16 at 15:30 Glucagon (Glucagen) 1 mg Q15M PRN IM DECREASED GLUCOSE; Start 05/06/16 at 15:30 Glucose (Glutose) 15 gm Q15M PRN BUCCAL DECREASED GLUCOSE; Start 05/06/16 at 15 :30 Gabapentin (Neurontin Liquid) 100 mg TID GTB Last administered on 05/10/16 09: 04; Admin Dose 100 MG; Start 05/07/16 at 22:00 REGINALDO CHERY NP May 10, 2016 13:11
--- NOTE | 2016-05-10 13:16 | CONS ---
Date/Time of Note Date/Time of Note DATE: 05/10/16 TIME: 13:13 Assessment/Plan Assessment/Plan Additional Assessment/Plan Acute kidney injury Hypotension, improved Sepsis Respiratory Failure Preserved EF on echocardiogram March 02, 2016 History of intermittent Mob[place] I Chronic pain syndrome -Blood pressure trend overall remained stable with brief episode of hypotension after Dilaudid, remains asympt.. IV fluids as per our nephrology colleagues. No antihypertensive medications at the current time. Consultation Date/Type/Reason Admit Date/Time May 04, 2016 at 12:27 Initial Consult Date 05/05/16 Type of Consultation: cv Referring Provider: JOSÉ ANTONIO MIRZA MD 24 HR Interval Summary Free Text/Dictation denies cp, dizziness, sob Exam/Review of Systems Vital Signs Vitals Vital Signs Date Time Temp Pulse Resp B/P Pulse Ox O2 Delivery O2 Flow Rate FiO2 05/10/16 10:42 8.0 35 05/10/16 08:52 83 05/10/16 07:58 97.7 16 95/53 97 05/10/16 01:35 Aerosol Intake and Output 05/09/16 05/09/16 05/10/16 15:00 23:00 07:00 Intake Total 50 ml 1200 ml 400 ml Output Total 1050 ml 400 ml 1500 ml Balance -1000 ml 800 ml -1100 ml Exam nad Constitutional: alert, frail, oriented Head: normocephalic Neck: other (trach) Respiratory: other (course bs, no wheeze) Cardiovascular: other (s1s2), regular rate and rhythm Gastrointestinal: bowel sounds, non-tender, soft Extremities: other (no edema) Results Result Diagram: 05/10/16 0645 05/10/16 0645 Results 24 hrs Laboratory Tests Test 05/10/16 06:45 White Blood Count 6.0 Red Blood Count 3.07 L Hemoglobin 9.1 L Hematocrit 31.1 L Mean Corpuscular Volume 101.3 H Mean Corpuscular Hemoglobin 29.6 Mean Corpuscular Hemoglobin Concent 29.3 L Red Cell Distribution Width 14.4 Platelet Count 130 L Mean Platelet Volume 11.1 H Neutrophils % 68.0 Lymphocytes % 13.4 L Monocytes % 11.9 H Eosinophils % 5.9 Basophils % 0.3 Nucleated Red Blood Cells % 0.0 Neutrophils # 4.1 Lymphocytes # 0.8 Monocytes # 0.7 Eosinophils # 0.4 Basophils # 0.0 Nucleated Red Blood Cells # 0.0 Sodium Level 138 Potassium Level 5.1 Chloride Level 103 # Carbon Dioxide Level 28 Anion Gap 12 Blood Urea Nitrogen 53 H Creatinine 1.99 H Glucose Level 92 Hemoglobin A1c 4.2 Calcium Level 8.6 Medications Medications Current Medications Enoxaparin Sodium (Lovenox) 30 mg DAILY SC Last administered on 05/10/16 09:22 ; Admin Dose 30 MG; Start 05/04/16 at 09:00 Pantoprazole 40 mg 40 mg DAILY@06 PO Last administered on 05/10/16 05:27; Admin Dose 40 MG; Start 05/04/16 at 06:00 Cefepime HCl (Maxipime 1gm/50 ml (Pmx)) 50 ml @ 100 mls/hr Q12 IVPB Last administered on 05/10/16 09:04; Admin Dose 100 MLS/HR; Start 05/03/16 at 23:00 Hydromorphone HCl (Dilaudid) 1 mg Q4 PRN IV SEVERE PAIN LEVEL 7-10 Last administered on 05/10/16 10:49; Admin Dose 1 MG; Start 05/03/16 at 18:30 Citric Acid/ Sodium Citrate (Bicitra) 30 ml TID PO Last administered on 09:04; Admin Dose 30 ML; Start 05/04/16 at 13:00 Silver Nitrate 1 stick 1 stick Q7D TOP Last administered on 05/05/16 18:05; Admin Dose 1 STICK; Start 05/05/16 at 16:30; Stop 05/12/16 at 16:31 Norepinephrine/ Dextrose (Levophed/D5W) 500 ml @ 1.87 mls/hr TITRATE IV ; Start 05/05/16 at 20:00 Zolpidem Tartrate (Ambien) 5 mg HS PRN PO INSOMNIA Last administered on 20:40; Admin Dose 5 MG; Start 05/05/16 at 20:30 IV Flush (NS 10 ml) 10 ml PRN PRN IV IV PROTOCOL; Start 05/06/16 at 12:30 Doxycycline Hyclate (Vibramycin) 100 mg BID PO Last administered on 05/10/16 09 :04; Admin Dose 100 MG; Start 05/06/16 at 21:00 Diagnostic Test (Pha) (Accu-Chek) 1 ea 02 XX Last administered on 05/07/16 02: 06; Admin Dose 1 EA; Start 05/07/16 at 02:00 Miscellaneous Information 1 ea NOTE XX ; Start 05/06/16 at 15:30 Glucose (Glutose) 15 gm Q15M PRN PO DECREASED GLUCOSE; Start 05/06/16 at 15:30 Glucose (Glutose) 22.5 gm Q15M PRN PO DECREASED GLUCOSE; Start 05/06/16 at 15: 30 Dextrose (D50w Syringe) 25 ml Q15M PRN IV DECREASED GLUCOSE; Start 05/06/16 at 15:30 Dextrose (D50w Syringe) 50 ml Q15M PRN IV DECREASED GLUCOSE; Start 05/06/16 at 15:30 Glucagon (Glucagen) 1 mg Q15M PRN IM DECREASED GLUCOSE; Start 05/06/16 at 15:30 Glucose (Glutose) 15 gm Q15M PRN BUCCAL DECREASED GLUCOSE; Start 05/06/16 at 15 :30 Gabapentin (Neurontin Liquid) 100 mg TID GTB Last administered on 05/10/16 09: 04; Admin Dose 100 MG; Start 05/07/16 at 22:00 Deandre Chavez DO May 10, 2016 13:16
[2016-05-10] MEDS ORDERED: NA PHOSPHATE/BIPHOS 133 ML ENEMA PR SCH (14:00)
[2016-05-10] MEDS ORDERED: POLYETHYLENE GLYCOL 17 GM PACKET PO PRN (14:00)
[2016-05-10] MEDS: DOCUSATE SODIUM 100 MG CAP PO SCH ×2 (14:43→21:00)
--- NOTE | 2016-05-10 15:41 | PN ---
DATE: 05/10/2016 SUBJECTIVE: The patient is breathing comfortably, has been off ventilator support for the last few days. He shows no signs of respiratory distress, no fever. PHYSICAL EXAMINATION: VITAL SIGNS: Stable, temperature is 97.7. Blood pressure is 95/53, pulse rate of 92, respirations 16, pulse oximetry shows 97% saturation on 30% inhaled oxygen concentration. NECK: Tracheal secretions are clear. No bleeding is seen. HEART: Regular rhythm. CHEST: Breath sounds are clear bilaterally, though somewhat diminished in the lower lung tierney. ABDOMEN: Soft, not distended, tolerating oral feedings. EXTREMITIES: Show paraplegia, no edema. LABORATORY DATA: Show WBC 6900, hemoglobin 9.1, hematocrit 31.1, platelets are decreased at 138,000 . The chemistry panel shows sodium 138, potassium 5.1, bicarbonate of 28. BUN 53, creatinine 1.9, slightly higher than before. Glucose is 92. IMPRESSION: 1. Urosepsis. 2. Chronic respiratory failure. 3. Chronic kidney disease, improving. 4. Chronic anemia. 5. Spinal cord injury resulting in paraplegia. 6. Status post tracheostomy. 7. Status post gastrostomy. 8. Status post suprapubic cystostomy. PLAN: 1. Continue antibiotics as per the infectious disease sap solution manager consultant. 2. Continue bronchodilator inhalation therapy through the tracheostomy to improve pulmonary hygiene . 3. Continue to monitor the patient's respiratory status. As the patient's pulmonary status is stable and if other consultants agree and if it is okay with th e primary physician discharge planning may be started to discharge the patient back to his nursing h ome. Dictated By: HUMBERTO PEREZ MD, SR/QUE Conf#: [id number] DID#: [id number]
--- NOTE | 2016-05-10 16:16 | PN ---
Date/Time of Note Date/Time of Note DATE: 05/10/16 TIME: 16:10 Assessment/Plan VTE Prophylaxis VTE Prophylaxis Intervention: SCD's Lines/Catheters [facility] PICC Line Central line still needed: Yes Urinary Cath still in place: Yes (suprapubic catheter) Reason Cath still needed: urinary retention Assessment/Plan Chief Complaint/Hosp Course ASSESSMENT AND PLAN: 1. Polymicrobial Urinary tract infection. Continue antibiotics per ID. Dr. Maciel is following patient in infection disease consultation. 2. Acute kidney injury on top of chronic kidney disease. Status post right nephrectomy. Dr. Barker is following in nephrology consultation. 3. Ventilator-dependent respiratory failure with tracheostomy. is following patient in pulmonary consultation. Continue bronchodilators and ventilatory support. 4. Multiple decubitus ulcers present on admission. Continue zinc sulfate, multivitamins and offloading and current wound care. 5. Cervical spine injury with paraplegia. 6. Bipolar disorder with psychosis. Continue patient on risperidone b.i.d. and Lexapro. 7. Iron deficiency anemia. Continue patient on iron supplements. 8. Neurogenic bladder with suprapubic catheter. 9. Dysphagia with PEG. Continue Lovenox for deep venous thrombosis prophylaxis and Protonix for peptic ulcer disease prophylaxis. Further recommendations based on clinical course. Plan of care discussed with Dr. Barreto. Problems: Subjective 24 Hr Interval Summary Free Text/Dictation Patient continued on antibiotics for polymicrobial urinary tract infection, continue to monitor renal function, patient is comfortable on vent, remains afebrile. Exam/Review of Systems Vital Signs Vitals Vital Signs Date Time Temp Pulse Resp B/P Pulse Ox O2 Delivery O2 Flow Rate FiO2 05/10/16 13:20 92 05/10/16 10:42 8.0 35 05/10/16 07:58 97.7 16 95/53 97 05/10/16 01:35 Aerosol Intake and Output 05/09/16 05/09/16 05/10/16 15:00 23:00 07:00 Intake Total 50 ml 1200 ml 400 ml Output Total 1050 ml 400 ml 1500 ml Balance -1000 ml 800 ml -1100 ml Exam PHYSICAL ASSESSMENT: GENERAL: Well-developed, debilitated, cachectic male currently is awake, alert , follows immediate commands. HEENT: Head is atraumatic, normocephalic. PERRLA. NECK: Supple. There is a tracheostomy at the base of the neck with no bleeding. LUNGS: The patient has scattered rhonchi bilaterally, slightly diminished at the bases. There is no wheezing noted. CARDIOVASCULAR: Normal S1, S2. No murmurs, gallops, clicks, rubs noted. The patient is slightly tachycardic. ABDOMEN: Flat, soft, nondistended, nontender. G-tube with intact stoma. The patient also has a suprapubic catheter with intact stoma. EXTREMITIES: Contracted. SKIN: The patient has sacral ulcers present on admission. There is no rash, petechiae noted. NEUROLOGIC: The patient is awake, alert and oriented, following immediate commands, with paraplegia. Results Result Diagram: 05/10/16 0645 05/10/16 0645 Results 24 hrs Laboratory Tests Test 05/10/16 06:45 White Blood Count 6.0 Red Blood Count 3.07 L Hemoglobin 9.1 L Hematocrit 31.1 L Mean Corpuscular Volume 101.3 H Mean Corpuscular Hemoglobin 29.6 Mean Corpuscular Hemoglobin Concent 29.3 L Red Cell Distribution Width 14.4 Platelet Count 130 L Mean Platelet Volume 11.1 H Neutrophils % 68.0 Lymphocytes % 13.4 L Monocytes % 11.9 H Eosinophils % 5.9 Basophils % 0.3 Nucleated Red Blood Cells % 0.0 Neutrophils # 4.1 Lymphocytes # 0.8 Monocytes # 0.7 Eosinophils # 0.4 Basophils # 0.0 Nucleated Red Blood Cells # 0.0 Sodium Level 138 Potassium Level 5.1 Chloride Level 103 # Carbon Dioxide Level 28 Anion Gap 12 Blood Urea Nitrogen 53 H Creatinine 1.99 H Glucose Level 92 Hemoglobin A1c 4.2 Calcium Level 8.6 Medications Medications Current Medications Enoxaparin Sodium (Lovenox) 30 mg DAILY SC Last administered on 05/10/16 09:22 ; Admin Dose 30 MG; Start 05/04/16 at 09:00 Pantoprazole 40 mg 40 mg DAILY@06 PO Last administered on 05/10/16 05:27; Admin Dose 40 MG; Start 05/04/16 at 06:00 Cefepime HCl (Maxipime 1gm/50 ml (Pmx)) 50 ml @ 100 mls/hr Q12 IVPB Last administered on 05/10/16 09:04; Admin Dose 100 MLS/HR; Start 05/03/16 at 23:00 Hydromorphone HCl (Dilaudid) 1 mg Q4 PRN IV SEVERE PAIN LEVEL 7-10 Last administered on 05/10/16 14:44; Admin Dose 1 MG; Start 05/03/16 at 18:30 Citric Acid/ Sodium Citrate (Bicitra) 30 ml TID PO Last administered on 09:04; Admin Dose 30 ML; Start 05/04/16 at 13:00 Silver Nitrate 1 stick 1 stick Q7D TOP Last administered on 05/05/16 18:05; Admin Dose 1 STICK; Start 05/05/16 at 16:30; Stop 05/12/16 at 16:31 Norepinephrine/ Dextrose (Levophed/D5W) 500 ml @ 1.87 mls/hr TITRATE IV ; Start 05/05/16 at 20:00 Zolpidem Tartrate (Ambien) 5 mg HS PRN PO INSOMNIA Last administered on 20:40; Admin Dose 5 MG; Start 05/05/16 at 20:30 IV Flush (NS 10 ml) 10 ml PRN PRN IV IV PROTOCOL; Start 05/06/16 at 12:30 Doxycycline Hyclate (Vibramycin) 100 mg BID PO Last administered on 05/10/16 09 :04; Admin Dose 100 MG; Start 05/06/16 at 21:00 Diagnostic Test (Pha) (Accu-Chek) 1 ea 02 XX Last administered on 05/07/16 02: 06; Admin Dose 1 EA; Start 05/07/16 at 02:00 Miscellaneous Information 1 ea NOTE XX ; Start 05/06/16 at 15:30 Glucose (Glutose) 15 gm Q15M PRN PO DECREASED GLUCOSE; Start 05/06/16 at 15:30 Glucose (Glutose) 22.5 gm Q15M PRN PO DECREASED GLUCOSE; Start 05/06/16 at 15: 30 Dextrose (D50w Syringe) 25 ml Q15M PRN IV DECREASED GLUCOSE; Start 05/06/16 at 15:30 Dextrose (D50w Syringe) 50 ml Q15M PRN IV DECREASED GLUCOSE; Start 05/06/16 at 15:30 Glucagon (Glucagen) 1 mg Q15M PRN IM DECREASED GLUCOSE; Start 05/06/16 at 15:30 Glucose (Glutose) 15 gm Q15M PRN BUCCAL DECREASED GLUCOSE; Start 05/06/16 at 15 :30 Gabapentin (Neurontin Liquid) 100 mg TID GTB Last administered on 05/10/16 09: 04; Admin Dose 100 MG; Start 05/07/16 at 22:00 Sodium Biphosphate/ Sodium Phosphate (Fleet Enema) 133 ml NOW [place] ; Start at 14:00; Stop 05/10/16 at 23:00 Polyethylene Glycol (Miralax) 17 gm DAILY PRN PO CONSTIPATION; Start 05/10/16 at 14:00 Docusate Sodium (Colace) 100 mg BID PO Last administered on 05/10/16 14:43; Admin Dose 100 MG; Start 05/10/16 at 14:00 AISSATOU DUNCAN May 10, 2016 16:15
[2016-05-10] MEDS: ZOLPIDEM 5 MG TAB PO PRN (21:02)
--- NOTE | 2016-05-10 21:59 | CONS ---
Date/Time of Note Date/Time of Note DATE: 05/10/16 TIME: 21:56 Assessment/Plan Assessment/Plan Additional Assessment/Plan 1. Acute kidney injury secondary to severe prerenal azotemia and possible acute tubular necrosis from sepsis secondary to urinary tract infection. 2. Acute uremia with a BUN of 131.- slowly improving with D5W 3. Metabolic acidosis due to the worsening renal failure. 4. Urinary tract infection with urinalysis positive for nitrites. on IV abx 5. 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 6. History of neurogenic bladder with urinary retention, status post suprapubic catheter. 7. History of previous recurrent urinary tract infections. 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 9. 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 10. Other medical history includes anxiety, depression, bipolar disorder, psychosis. 11. History of right nephrectomy with left renal nephrolithiasis and a left renal cyst measuring 5.3 cm in size. PLAN: IVF has been stoppd yesterday, today K is high normal but Cr bumped to 1.99 pt only has left kidney in place, with stone in in left kidney and left renal cyst 5.3cm, in size no evidence of hematuria Preserved EF on echocardiogram March 02, 2016, [employer]ker has been following will follow up Consultation Date/Type/Reason Initial Consult Date 05/03/2016 Type of Consultation: NEPHROLOGY Referring Provider: JOSÉ ANTONIO MIRZA MD 24 HR Interval Summary Free Text/Dictation K high normal, pt stable, Cr bumped to 1.99 today Exam/Review of Systems Vital Signs Vitals Vital Signs Date Time Temp Pulse Resp B/P Pulse Ox O2 Delivery O2 Flow Rate FiO2 05/10/16 20:39 83 05/10/16 20:06 98.6 17 92/55 99 05/10/16 17:35 5.0 28 05/10/16 15:30 Aerosol Intake and Output 05/09/16 05/09/16 05/10/16 15:00 23:00 07:00 Intake Total 50 ml 1250 ml 400 ml Output Total 1050 ml 400 ml 1500 ml Balance -1000 ml 850 ml -1100 ml Exam GENERAL: This is a chronically ill-appearing, middle-aged white man, who is lying comfortably in bed. HEENT: Head atraumatic, normocephalic. Sclerae anicteric. Buccal mucosa pink. NECK: Supple. Tracheostomy present. CHEST: Chest rise is symmetrical. Breath sounds diminished to the bases. HEART: S1, S2. ABDOMEN: Soft. Bowel tones present. EXTREMITIES: Wasted, contractured. Results Result Diagram: 05/10/16 0645 05/10/16 0645 Results 24 hrs Laboratory Tests Test 05/10/16 06:45 White Blood Count 6.0 Red Blood Count 3.07 L Hemoglobin 9.1 L Hematocrit 31.1 L Mean Corpuscular Volume 101.3 H Mean Corpuscular Hemoglobin 29.6 Mean Corpuscular Hemoglobin Concent 29.3 L Red Cell Distribution Width 14.4 Platelet Count 130 L Mean Platelet Volume 11.1 H Neutrophils % 68.0 Lymphocytes % 13.4 L Monocytes % 11.9 H Eosinophils % 5.9 Basophils % 0.3 Nucleated Red Blood Cells % 0.0 Neutrophils # 4.1 Lymphocytes # 0.8 Monocytes # 0.7 Eosinophils # 0.4 Basophils # 0.0 Nucleated Red Blood Cells # 0.0 Sodium Level 138 Potassium Level 5.1 Chloride Level 103 # Carbon Dioxide Level 28 Anion Gap 12 Blood Urea Nitrogen 53 H Creatinine 1.99 H Glucose Level 92 Hemoglobin A1c 4.2 Calcium Level 8.6 Medications Medications Current Medications Enoxaparin Sodium (Lovenox) 30 mg DAILY SC Last administered on 05/10/16 09:22 ; Admin Dose 30 MG; Start 05/04/16 at 09:00 Pantoprazole 40 mg 40 mg DAILY@06 PO Last administered on 05/10/16 05:27; Admin Dose 40 MG; Start 05/04/16 at 06:00 Cefepime HCl (Maxipime 1gm/50 ml (Pmx)) 50 ml @ 100 mls/hr Q12 IVPB Last administered on 05/10/16 21:02; Admin Dose 100 MLS/HR; Start 05/03/16 at 23:00 Hydromorphone HCl (Dilaudid) 1 mg Q4 PRN IV SEVERE PAIN LEVEL 7-10 Last administered on 05/10/16 18:47; Admin Dose 1 MG; Start 05/03/16 at 18:30 Citric Acid/ Sodium Citrate (Bicitra) 30 ml TID PO Last administered on 21:02; Admin Dose 30 ML; Start 05/04/16 at 13:00 Silver Nitrate 1 stick 1 stick Q7D TOP Last administered on 05/05/16 18:05; Admin Dose 1 STICK; Start 05/05/16 at 16:30; Stop 05/12/16 at 16:31 Norepinephrine/ Dextrose (Levophed/D5W) 500 ml @ 1.87 mls/hr TITRATE IV ; Start 05/05/16 at 20:00 Zolpidem Tartrate (Ambien) 5 mg HS PRN PO INSOMNIA Last administered on 21:02; Admin Dose 5 MG; Start 05/05/16 at 20:30 IV Flush (NS 10 ml) 10 ml PRN PRN IV IV PROTOCOL; Start 05/06/16 at 12:30 Doxycycline Hyclate (Vibramycin) 100 mg BID PO Last administered on 05/10/16 21 :02; Admin Dose 100 MG; Start 05/06/16 at 21:00 Diagnostic Test (Pha) (Accu-Chek) 1 ea 02 XX Last administered on 05/07/16 02: 06; Admin Dose 1 EA; Start 05/07/16 at 02:00 Miscellaneous Information 1 ea NOTE XX ; Start 05/06/16 at 15:30 Glucose (Glutose) 15 gm Q15M PRN PO DECREASED GLUCOSE; Start 05/06/16 at 15:30 Glucose (Glutose) 22.5 gm Q15M PRN PO DECREASED GLUCOSE; Start 05/06/16 at 15: 30 Dextrose (D50w Syringe) 25 ml Q15M PRN IV DECREASED GLUCOSE; Start 05/06/16 at 15:30 Dextrose (D50w Syringe) 50 ml Q15M PRN IV DECREASED GLUCOSE; Start 05/06/16 at 15:30 Glucagon (Glucagen) 1 mg Q15M PRN IM DECREASED GLUCOSE; Start 05/06/16 at 15:30 Glucose (Glutose) 15 gm Q15M PRN BUCCAL DECREASED GLUCOSE; Start 05/06/16 at 15 :30 Gabapentin (Neurontin Liquid) 100 mg TID GTB Last administered on 05/10/16 21: 02; Admin Dose 100 MG; Start 05/07/16 at 22:00 Sodium Biphosphate/ Sodium Phosphate (Fleet Enema) 133 ml NOW [place] ; Start at 14:00; Stop 05/10/16 at 23:00 Polyethylene Glycol (Miralax) 17 gm DAILY PRN PO CONSTIPATION; Start 05/10/16 at 14:00 Docusate Sodium (Colace) 100 mg BID PO Last administered on 05/10/16t 14:43; Admin Dose 100 MG; Start 05/10/16 at 14:00 TIARA CISNEROS MD May 10, 2016 21:59
[2016-05-11] VITALS (13 sets, daily range): BP systolic 100–142; BP diastolic 55–75; PULSE 62–92; RESP 15–20
[2016-05-11] MEDS: HYDROmorphONE 1 MG/ML SYG IV PRN ×6 (00:28→21:49)
[2016-05-11] MEDS: PANTOPRAZOLE (EC) 40 MG TAB PO SCH (05:58)
[2016-05-11 06:35] LABS: POTASSIUM 4.7 mmol/L (3.5-5.1)
[2016-05-11 06:37] LABS: CREATININE 1.89 mg/dl (0.61-1.24)
[2016-05-11 06:38] LABS: CALCIUM 8.8 mg/dl (8.4-10.2)
[2016-05-11] MEDS: CEFEPIME 1GM/50 ML (PMX) 50 ML IVPB SCH ×2 (08:42→21:02)
[2016-05-11] MEDS: CITRIC ACID/NA CITRATE 30 ML CUP PO SCH ×3 (08:42→21:02)
[2016-05-11] MEDS: DOXYCYCLINE 100 MG TAB PO SCH ×2 (08:42→21:02)
[2016-05-11] MEDS: DOCUSATE SODIUM 100 MG CAP PO SCH ×2 (08:42→21:00)
[2016-05-11] MEDS: GABAPENTIN (50 MG/ML PO SYG) GTB SCH ×3 (08:43→22:27)
[2016-05-11] MEDS: ENOXAPARIN 30 MG/0.3 ML SYG SC SCH (09:06)
--- NOTE | 2016-05-11 10:57 | CONS ---
Date/Time of Note Date/Time of Note DATE: 05/11/16 TIME: 10:55 Assessment/Plan Assessment/Plan Additional Assessment/Plan 1. Acute kidney injury secondary to severe prerenal azotemia and possible acute tubular necrosis from sepsis secondary to urinary tract infection. 2. Acute uremia with a BUN of 131.- slowly improving with D5W 3. Metabolic acidosis due to the worsening renal failure. 4. Urinary tract infection with urinalysis positive for nitrites. on IV abx 5. 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 6. History of neurogenic bladder with urinary retention, status post suprapubic catheter. 7. History of previous recurrent urinary tract infections. 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 9. 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 10. Other medical history includes anxiety, depression, bipolar disorder, psychosis. 11. History of right nephrectomy with left renal nephrolithiasis and a left renal cyst measuring 5.3 cm in size. PLAN: Cr bumped to 1.99 yesterday,t millie Cr 1.89 but BUN high, will give NS 1 liter today pt only has left kidney in place, with stone in in left kidney and left renal cyst 5.3cm, in size no evidence of hematuria Preserved EF on echocardiogram March 02, 2016, deliverer food has been following will follow up Consultation Date/Type/Reason Admit Date/Time May 04, 2016 at 12:27 Initial Consult Date 05/03/2016 Type of Consultation: NEPHROLOGY Referring Provider: JOSÉ ANTONIO MIRZA MD 24 HR Interval Summary Free Text/Dictation Cr 1.89, but BUN high, pt tolerating po diet, electrolytes stable Exam/Review of Systems Vital Signs Vitals Vital Signs Date Time Temp Pulse Resp B/P Pulse Ox O2 Delivery O2 Flow Rate FiO2 05/11/16 08:23 83 05/11/16 06:59 98.2 17 111/71 100 05/11/16 04:45 5.0 28 05/11/16 04:45 Aerosol Intake and Output 05/10/16 05/10/16 05/11/16 15:00 23:00 07:00 Intake Total 1140 ml 450 ml 500 ml Output Total 1450 ml 700 ml 1400 ml Balance -310 ml -250 ml -900 ml Exam GENERAL: This is a chronically ill-appearing, middle-aged white man, who is lying comfortably in bed. HEENT: Head atraumatic, normocephalic. Sclerae anicteric. Buccal mucosa pink. NECK: Supple. Tracheostomy present. CHEST: Chest rise is symmetrical. Breath sounds diminished to the bases. HEART: S1, S2. ABDOMEN: Soft. Bowel tones present. EXTREMITIES: Wasted, contractured. Results Result Diagram: 05/10/16 0645 05/11/16 0545 Results 24 hrs Laboratory Tests Test 05/11/16 05:45 Sodium Level 143 Potassium Level 4.7 Chloride Level 104 Carbon Dioxide Level 26 Anion Gap 18 H Blood Urea Nitrogen 61 H Creatinine 1.89 H Glucose Level 108 Calcium Level 8.8 Medications Medications Current Medications Enoxaparin Sodium (Lovenox) 30 mg DAILY SC Last administered on 05/11/16 09:06 ; Admin Dose 30 MG; Start 05/04/16 at 09:00 Pantoprazole 40 mg 40 mg DAILY@06 PO Last administered on 05/11/16 05:58; Admin Dose 40 MG; Start 05/04/16 at 06:00 Cefepime HCl (Maxipime 1gm/50 ml (Pmx)) 50 ml @ 100 mls/hr Q12 IVPB Last administered on 05/11/16 08:42; Admin Dose 100 MLS/HR; Start 05/03/16 at 23:00 Hydromorphone HCl (Dilaudid) 1 mg Q4 PRN IV SEVERE PAIN LEVEL 7-10 Last administered on 05/11/16 08:43; Admin Dose 1 MG; Start 05/03/16 at 18:30 Citric Acid/ Sodium Citrate (Bicitra) 30 ml TID PO Last administered on 08:42; Admin Dose 30 ML; Start 05/04/16 at 13:00 Silver Nitrate 1 stick 1 stick Q7D TOP Last administered on 05/05/16 18:05; Admin Dose 1 STICK; Start 05/05/16 at 16:30; Stop 05/12/16 at 16:31 Norepinephrine/ Dextrose (Levophed/D5W) 500 ml @ 1.87 mls/hr TITRATE IV ; Start 05/05/16 at 20:00 Zolpidem Tartrate (Ambien) 5 mg HS PRN PO INSOMNIA Last administered on 21:02; Admin Dose 5 MG; Start 05/05/16 at 20:30 IV Flush (NS 10 ml) 10 ml PRN PRN IV IV PROTOCOL; Start 05/06/16 at 12:30 Doxycycline Hyclate (Vibramycin) 100 mg BID PO Last administered on 05/11/16 08 :42; Admin Dose 100 MG; Start 05/06/16 at 21:00 Diagnostic Test (Pha) (Accu-Chek) 1 ea 02 XX Last administered on 05/07/16 02: 06; Admin Dose 1 EA; Start 05/07/16 at 02:00 Miscellaneous Information 1 ea NOTE XX ; Start 05/06/16 at 15:30 Glucose (Glutose) 15 gm Q15M PRN PO DECREASED GLUCOSE; Start 05/06/16 at 15:30 Glucose (Glutose) 22.5 gm Q15M PRN PO DECREASED GLUCOSE; Start 05/06/16 at 15: 30 Dextrose (D50w Syringe) 25 ml Q15M PRN IV DECREASED GLUCOSE; Start 05/06/16 at 15:30 Dextrose (D50w Syringe) 50 ml Q15M PRN IV DECREASED GLUCOSE; Start 05/06/16 at 15:30 Glucagon (Glucagen) 1 mg Q15M PRN IM DECREASED GLUCOSE; Start 05/06/16 at 15:30 Glucose (Glutose) 15 gm Q15M PRN BUCCAL DECREASED GLUCOSE; Start 05/06/16 at 15 :30 Gabapentin (Neurontin Liquid) 100 mg TID GTB Last administered on 05/11/16 08: 43; Admin Dose 100 MG; Start 05/07/16 at 22:00 Polyethylene Glycol (Miralax) 17 gm DAILY PRN PO CONSTIPATION; Start 05/10/16 at 14:00 Docusate Sodium (Colace) 100 mg BID PO Last administered on 05/11/16 08:42; Admin Dose 100 MG; Start 05/10/16 at 14:00 TIARA CISNEROS MD May 11, 2016 10:57
[2016-05-11] MEDS ORDERED: SOD CHLORIDE 0.9% 1,000 ML IV ONE (11:00)
--- NOTE | 2016-05-11 12:45 | CONS ---
Date/Time of Note Date/Time of Note DATE: 05/11/16 TIME: 12:44 Assessment/Plan Assessment/Plan Additional Assessment/Plan Acute kidney injury Hypotension, improved Sepsis Respiratory Failure Preserved EF on echocardiogram March 02, 2016 History of intermittent Mobitz I Chronic pain syndrome -Blood pressure trend overall remained stable. IV fluids as per our nephrology colleagues. No antihypertensive medications at the current time. Consultation Date/Type/Reason Admit Date/Time May 04, 2016 at 12:27 Initial Consult Date 05/05/16 Type of Consultation: cv Referring Provider: JOSÉ ANTONIO MIRZA MD 24 HR Interval Summary Free Text/Dictation Patient seen and examined, sleeping Exam/Review of Systems Vital Signs Vitals Vital Signs Date Time Temp Pulse Resp B/P Pulse Ox O2 Delivery O2 Flow Rate FiO2 05/11/16 12:23 71 05/11/16 11:47 98.3 18 100/55 99 05/11/16 04:45 5.0 28 05/11/16 04:45 Aerosol Intake and Output 05/10/16 05/10/16 05/11/16 15:00 23:00 07:00 Intake Total 1140 ml 450 ml 500 ml Output Total 1450 ml 700 ml 1400 ml Balance -310 ml -250 ml -900 ml Exam Sleeping, no apparent distress Head: normocephalic Neck: other (Tracheostomy) Respiratory: other (Coarse breath sounds bilaterally, no wheezing) Cardiovascular: other (S1-S2 heard), regular rate and rhythm Gastrointestinal: bowel sounds, non-tender, other (No guarding), soft Extremities: other (No edema or cyanosis) Results Result Diagram: 05/10/16 0645 05/11/16 0545 Results 24 hrs Laboratory Tests Test 05/11/16 05:45 Sodium Level 143 Potassium Level 4.7 Chloride Level 104 Carbon Dioxide Level 26 Anion Gap 18 H Blood Urea Nitrogen 61 H Creatinine 1.89 H Glucose Level 108 Calcium Level 8.8 Medications Medications Current Medications Enoxaparin Sodium (Lovenox) 30 mg DAILY SC Last administered on 05/11/16 09:06 ; Admin Dose 30 MG; Start 05/04/16 at 09:00 Pantoprazole 40 mg 40 mg DAILY@06 PO Last administered on 05/11/16 05:58; Admin Dose 40 MG; Start 05/04/16 at 06:00 Cefepime HCl (Maxipime 1gm/50 ml (Pmx)) 50 ml @ 100 mls/hr Q12 IVPB Last administered on 05/11/16 08:42; Admin Dose 100 MLS/HR; Start 05/03/16 at 23:00 Hydromorphone HCl (Dilaudid) 1 mg Q4 PRN IV SEVERE PAIN LEVEL 7-10 Last administered on 05/11/16 08:43; Admin Dose 1 MG; Start 05/03/16 at 18:30 Citric Acid/ Sodium Citrate (Bicitra) 30 ml TID PO Last administered on 08:42; Admin Dose 30 ML; Start 05/04/16 at 13:00 Silver Nitrate 1 stick 1 stick Q7D TOP Last administered on 05/05/16 18:05; Admin Dose 1 STICK; Start 05/05/16 at 16:30; Stop 05/12/16 at 16:31 Norepinephrine/ Dextrose (Levophed/D5W) 500 ml @ 1.87 mls/hr TITRATE IV ; Start 05/05/16 at 20:00 Zolpidem Tartrate (Ambien) 5 mg HS PRN PO INSOMNIA Last administered on 21:02; Admin Dose 5 MG; Start 05/05/16 at 20:30 IV Flush (NS 10 ml) 10 ml PRN PRN IV IV PROTOCOL; Start 05/06/16 at 12:30 Doxycycline Hyclate (Vibramycin) 100 mg BID PO Last administered on 05/11/16 08 :42; Admin Dose 100 MG; Start 05/06/16 at 21:00 Diagnostic Test (Pha) (Accu-Chek) 1 ea 02 XX Last administered on 05/07/16 02: 06; Admin Dose 1 EA; Start 05/07/16 at 02:00 Miscellaneous Information 1 ea NOTE XX ; Start 05/06/16 at 15:30 Glucose (Glutose) 15 gm Q15M PRN PO DECREASED GLUCOSE; Start 05/06/16 at 15:30 Glucose (Glutose) 22.5 gm Q15M PRN PO DECREASED GLUCOSE; Start 05/06/16 at 15: 30 Dextrose (D50w Syringe) 25 ml Q15M PRN IV DECREASED GLUCOSE; Start 05/06/16 at 15:30 Dextrose (D50w Syringe) 50 ml Q15M PRN IV DECREASED GLUCOSE; Start 05/06/16 at 15:30 Glucagon (Glucagen) 1 mg Q15M PRN IM DECREASED GLUCOSE; Start 05/06/16 at 15:30 Glucose (Glutose) 15 gm Q15M PRN BUCCAL DECREASED GLUCOSE; Start 05/06/16 at 15 :30 Gabapentin (Neurontin Liquid) 100 mg TID GTB Last administered on 05/11/16 08: 43; Admin Dose 100 MG; Start 05/07/16 at 22:00 Polyethylene Glycol (Miralax) 17 gm DAILY PRN PO CONSTIPATION; Start 05/10/16 at 14:00 Docusate Sodium 100 mg 100 mg BID PO Last administered on 05/11/16 08:42; Admin Dose 100 MG; Start 05/10/16 at 14:00 Sodium Chloride (NS) 1,000 ml @ 75 mls/hr [id number] ONCE IV ; Start 05/11/16 at 11 :00; Stop 05/12/16 at 00:19 Alteplase, Recombinant (Cathflo (Activase)) 2 mg ONCE ONCE CATHETER ; Start 05/11/16 at 14:00; Stop 05/11/16 at 14:01 Deandre Chavez DO May 11, 2016 12:45
[2016-05-11] MEDS ORDERED: ALTEPLASE (CATHFLO) 2 MG INJ CATHETER ONE (14:00)
[2016-05-11 15:33] LABS: ADD SCAN DIFF NO
[2016-05-11 15:35] LABS: BASOPHILS % 0.2 % (0.0-2.0); EOSINOPHILS # 0.2 10^3/ul (0.0-0.5); EOSINOPHILS % 5.2 % (0.0-7.0); HEMOGLOBIN 8.8 g/dl (14.0-18.0); LYMPHOCYTES # 0.7 10^3/ul (0.8-2.9); LYMPHOCYTES % 16.1 % (15.0-51.0); MEAN CORPUSCULAR HEMOGLOBIN 30.1 pg (29.0-33.0); MEAN CORPUSCULAR HGB CONC 29.3 g/dl (32.0-37.0); MEAN CORPUSCULAR VOLUME 102.7 fl (82.0-101.0); MEAN PLATELET VOLUME 11.3 fl (7.4-10.4); MONOCYTE # 0.5 10^3/ul (0.3-0.9); MONOCYTES % 11.8 % (0.0-11.0); NEUTROPHILS % 66.3 % (39.0-77.0); PLATELET COUNT 106 10^3/UL (140-415); RED BLOOD COUNT 2.92 10^6/ul (4.70-6.10); RED CELL DISTRIBUTION WIDTH 14.1 % (11.5-14.5); WHITE BLOOD COUNT 4.6 10^3/ul (4.8-10.8)
--- NOTE | 2016-05-11 15:40 | CONS ---
Date/Time of Note Date/Time of Note DATE: 05/11/16 TIME: 15:39 Assessment/Plan Assessment/Plan Chief Complaint/Hosp Course SUBJECTIVE: Alert, feels good, no fevers MICROBIOLOGY: Blood culture negative. Urine culture growing MRSA/GNR INDWELLINGS: Trach, PEG and suprapubic catheter. ANTIMICROBIALS: 1. Doxycycline 2. IV Cefepime. DIAGNOSTICS: Chest x-ray on admission revealed no evidence of acute cardiopulmonary disease. PHYSICAL EXAMINATION: GENERAL: This is a chronically ill-appearing, middle-aged white man, who is lying comfortably in bed. HEENT: Head atraumatic, normocephalic. Sclerae anicteric. Buccal mucosa pink. NECK: Supple. Tracheostomy present. CHEST: Chest rise is symmetrical. Breath sounds diminished to the bases. HEART: S1, S2. ABDOMEN: Soft. Bowel tones present. EXTREMITIES: Wasted, contractured. ASSESSMENT 1. Recurrent sepsis ==> s/p shock. 2. Polymicrobial urinary tract infection. 3. Quadriplegia secondary to C-spine injury. 4. Neurogenic bladder, with a suprapubic catheter. 5. Acute on chronic kidney disease. 6. History of right nephrectomy. PLAN: Continues to improve, continue abx for 4 more days, card rec-s noted [facility] staff Problems: Consultation Date/Type/Reason Admit Date/Time May 04, 2016 at 12:27 Initial Consult Date 05/05/16 Type of Consultation: id Referring Provider: JOSÉ ANTONIO MIRZA MD Exam/Review of Systems Vital Signs Vitals Vital Signs Date Time Temp Pulse Resp B/P Pulse Ox O2 Delivery O2 Flow Rate FiO2 05/11/16 12:23 71 05/11/16 11:47 98.3 18 100/55 99 05/11/16 04:45 5.0 28 05/11/16 04:45 Aerosol Intake and Output 05/10/16 05/10/16 05/11/16 15:00 23:00 07:00 Intake Total 1140 ml 450 ml 500 ml Output Total 1450 ml 700 ml 1400 ml Balance -310 ml -250 ml -900 ml Results Result Diagram: 05/11/16 1520 05/11/16 0545 Results 24 hrs Laboratory Tests Test 05/11/16 05:45 05/11/16 15:20 Sodium Level 143 Potassium Level 4.7 Chloride Level 104 Carbon Dioxide Level 26 Anion Gap 18 H Blood Urea Nitrogen 61 H Creatinine 1.89 H Glucose Level 108 Calcium Level 8.8 White Blood Count 4.6 #L Red Blood Count 2.92 L Hemoglobin 8.8 L Hematocrit 30.0 L Mean Corpuscular Volume 102.7 H Mean Corpuscular Hemoglobin 30.1 Mean Corpuscular Hemoglobin Concent 29.3 L Red Cell Distribution Width 14.1 Platelet Count 106 L Mean Platelet Volume 11.3 H Neutrophils % 66.3 Lymphocytes % 16.1 Monocytes % 11.8 H Eosinophils % 5.2 Basophils % 0.2 Nucleated Red Blood Cells % 0.0 Neutrophils # 3.0 Lymphocytes # 0.7 L Monocytes # 0.5 Eosinophils # 0.2 Basophils # 0.0 Nucleated Red Blood Cells # 0.0 Medications Medications Current Medications Enoxaparin Sodium (Lovenox) 30 mg DAILY SC Last administered on 05/11/16 09:06 ; Admin Dose 30 MG; Start 05/04/16 at 09:00 Pantoprazole 40 mg 40 mg DAILY@06 PO Last administered on 05/11/16 05:58; Admin Dose 40 MG; Start 05/04/16 at 06:00 Cefepime HCl (Maxipime 1gm/50 ml (Pmx)) 50 ml @ 100 mls/hr Q12 IVPB Last administered on 05/11/16 08:42; Admin Dose 100 MLS/HR; Start 05/03/16 at 23:00 Hydromorphone HCl (Dilaudid) 1 mg Q4 PRN IV SEVERE PAIN LEVEL 7-10 Last administered on 05/11/16 12:51; Admin Dose 1 MG; Start 05/03/16 at 18:30 Citric Acid/ Sodium Citrate (Bicitra) 30 ml TID PO Last administered on 12:51; Admin Dose 30 ML; Start 05/04/16 at 13:00 Silver Nitrate 1 stick 1 stick Q7D TOP Last administered on 05/05/16 18:05; Admin Dose 1 STICK; Start 05/05/16 at 16:30; Stop 05/12/16 at 16:31 Norepinephrine/ Dextrose (Levophed/D5W) 500 ml @ 1.87 mls/hr TITRATE IV ; Start 05/05/16 at 20:00 Zolpidem Tartrate (Ambien) 5 mg HS PRN PO INSOMNIA Last administered on 21:02; Admin Dose 5 MG; Start 05/05/16 at 20:30 IV Flush (NS 10 ml) 10 ml PRN PRN IV IV PROTOCOL; Start 05/06/16 at 12:30 Doxycycline Hyclate (Vibramycin) 100 mg BID PO Last administered on 05/11/16 08 :42; Admin Dose 100 MG; Start 05/06/16 at 21:00 Miscellaneous Information 1 ea NOTE XX ; Start 05/06/16 at 15:30 Glucose (Glutose) 15 gm Q15M PRN PO DECREASED GLUCOSE; Start 05/06/16 at 15:30 Glucose (Glutose) 22.5 gm Q15M PRN PO DECREASED GLUCOSE; Start 05/06/16 at 15: 30 Dextrose (D50w Syringe) 25 ml Q15M PRN IV DECREASED GLUCOSE; Start 05/06/16 at 15:30 Dextrose (D50w Syringe) 50 ml Q15M PRN IV DECREASED GLUCOSE; Start 05/06/16 at 15:30 Glucagon (Glucagen) 1 mg Q15M PRN IM DECREASED GLUCOSE; Start 05/06/16 at 15:30 Glucose (Glutose) 15 gm Q15M PRN BUCCAL DECREASED GLUCOSE; Start 05/06/16 at 15 :30 Gabapentin (Neurontin Liquid) 100 mg TID GTB Last administered on 05/11/16 12: 51; Admin Dose 100 MG; Start 05/07/16 at 22:00 Polyethylene Glycol (Miralax) 17 gm DAILY PRN PO CONSTIPATION; Start 05/10/16 at 14:00 Docusate Sodium 100 mg 100 mg BID PO Last administered on 05/11/16 08:42; Admin Dose 100 MG; Start 05/10/16 at 14:00 Sodium Chloride (NS) 1,000 ml @ 75 mls/hr [id number] ONCE IV Last administered on 05/11/16 12:51; Admin Dose 75 MLS/HR; Start 05/11/16 at 11:00; Stop 05/12/16 at 00:19 REGINALDO CHERY NP May 11, 2016 15:40
--- NOTE | 2016-05-11 15:53 | PN ---
Date/Time of Note Date/Time of Note DATE: 05/11/16 TIME: 15:51 Assessment/Plan VTE Prophylaxis VTE Prophylaxis Intervention: SCD's Lines/Catheters IV C[facility] Type [facility] PICC Line Central line still needed: Yes Urinary Cath still in place: Yes Reason Cath still needed: urinary retention Assessment/Plan Chief Complaint/Hosp Course ASSESSMENT AND PLAN: 1. Polymicrobial Urinary tract infection. Continue antibiotics per ID. Dr. Maciel is following patient in infection disease consultation. 2. Acute kidney injury on top of chronic kidney disease. Status post right nephrectomy. Left nephrolithiasis and renal cyst. Dr. Barker is following in nephrology consultation. Continue to monitor BUN and creatinine. 3. Ventilator-dependent respiratory failure with tracheostomy. is following patient in pulmonary consultation. Continue bronchodilators and ventilatory support. 4. Multiple decubitus ulcers present on admission. Continue zinc sulfate, multivitamins and offloading and current wound care. 5. Cervical spine injury with paraplegia. 6. Bipolar disorder with psychosis. Continue patient on risperidone b.i.d. and Lexapro. 7. Iron deficiency anemia. Continue patient on iron supplements. 8. Neurogenic bladder with suprapubic catheter. 9. Dysphagia with PEG. Continue Lovenox for deep venous thrombosis prophylaxis and Protonix for peptic ulcer disease prophylaxis. Further recommendations based on clinical course. Plan of care discussed with Dr. Barreto. Problems: Subjective 24 Hr Interval Summary Free Text/Dictation With slight increase in creatinine today, IV fluids ordered by nephrology, will check BMP tomorrow , patient remains afebrile, hemoglobin A1c is 4.2, will DC Accu-Chek, continue antibiotics and monitor renal function Exam/Review of Systems Vital Signs Vitals Vital Signs Date Time Temp Pulse Resp B/P Pulse Ox O2 Delivery O2 Flow Rate FiO2 05/11/16 12:23 71 05/11/16 11:47 98.3 18 100/55 99 05/11/16 04:45 5.0 28 05/11/16 04:45 Aerosol Intake and Output 05/10/16 05/10/16 05/11/16 15:00 23:00 07:00 Intake Total 1140 ml 450 ml 500 ml Output Total 1450 ml 700 ml 1400 ml Balance -310 ml -250 ml -900 ml Exam PHYSICAL ASSESSMENT: GENERAL: Well-developed, debilitated, cachectic male currently is awake, alert , follows immediate commands. HEENT: Head is atraumatic, normocephalic. PERRLA. NECK: Supple. There is a tracheostomy at the base of the neck with no bleeding. LUNGS: The patient has scattered rhonchi bilaterally, slightly diminished at the bases. There is no wheezing noted. CARDIOVASCULAR: Normal S1, S2. No murmurs, gallops, clicks, rubs noted. The patient is slightly tachycardic. ABDOMEN: Flat, soft, nondistended, nontender. G-tube with intact stoma. The patient also has a suprapubic catheter with intact stoma. EXTREMITIES: Contracted. SKIN: The patient has sacral ulcers present on admission. There is no rash, petechiae noted. NEUROLOGIC: The patient is awake, alert and oriented, following immediate commands, with paraplegia. Results Result Diagram: 05/11/16 1520 05/11/16 0545 Results 24 hrs Laboratory Tests Test 05/11/16 05:45 05/11/16 15:20 Sodium Level 143 Potassium Level 4.7 Chloride Level 104 Carbon Dioxide Level 26 Anion Gap 18 H Blood Urea Nitrogen 61 H Creatinine 1.89 H Glucose Level 108 Calcium Level 8.8 White Blood Count 4.6 #L Red Blood Count 2.92 L Hemoglobin 8.8 L Hematocrit 30.0 L Mean Corpuscular Volume 102.7 H Mean Corpuscular Hemoglobin 30.1 Mean Corpuscular Hemoglobin Concent 29.3 L Red Cell Distribution Width 14.1 Platelet Count 106 L Mean Platelet Volume 11.3 H Neutrophils % 66.3 Lymphocytes % 16.1 Monocytes % 11.8 H Eosinophils % 5.2 Basophils % 0.2 Nucleated Red Blood Cells % 0.0 Neutrophils # 3.0 Lymphocytes # 0.7 L Monocytes # 0.5 Eosinophils # 0.2 Basophils # 0.0 Nucleated Red Blood Cells # 0.0 Medications Medications Current Medications Enoxaparin Sodium (Lovenox) 30 mg DAILY SC Last administered on 05/11/16 09:06 ; Admin Dose 30 MG; Start 05/04/16 at 09:00 Pantoprazole 40 mg 40 mg DAILY@06 PO Last administered on 05/11/16 05:58; Admin Dose 40 MG; Start 05/04/16 at 06:00 Cefepime HCl (Maxipime 1gm/50 ml (Pmx)) 50 ml @ 100 mls/hr Q12 IVPB Last administered on 05/11/16 08:42; Admin Dose 100 MLS/HR; Start 05/03/16 at 23:00 Hydromorphone HCl (Dilaudid) 1 mg Q4 PRN IV SEVERE PAIN LEVEL 7-10 Last administered on 05/11/16 12:51; Admin Dose 1 MG; Start 05/03/16 at 18:30 Citric Acid/ Sodium Citrate (Bicitra) 30 ml TID PO Last administered on 12:51; Admin Dose 30 ML; Start 05/04/16 at 13:00 Silver Nitrate 1 stick 1 stick Q7D TOP Last administered on 05/05/16 18:05; Admin Dose 1 STICK; Start 05/05/16 at 16:30; Stop 05/12/16 at 16:31 Norepinephrine/ Dextrose (Levophed/D5W) 500 ml @ 1.87 mls/hr TITRATE IV ; Start 05/05/16 at 20:00 Zolpidem Tartrate (Ambien) 5 mg HS PRN PO INSOMNIA Last administered on 21:02; Admin Dose 5 MG; Start 05/05/16 at 20:30 IV Flush (NS 10 ml) 10 ml PRN PRN IV IV PROTOCOL; Start 05/06/16 at 12:30 Doxycycline Hyclate (Vibramycin) 100 mg BID PO Last administered on 05/11/16 08 :42; Admin Dose 100 MG; Start 05/06/16 at 21:00 Miscellaneous Information 1 ea NOTE XX ; Start 05/06/16 at 15:30 Glucose (Glutose) 15 gm Q15M PRN PO DECREASED GLUCOSE; Start 05/06/16 at 15:30 Glucose (Glutose) 22.5 gm Q15M PRN PO DECREASED GLUCOSE; Start 05/06/16 at 15: 30 Dextrose (D50w Syringe) 25 ml Q15M PRN IV DECREASED GLUCOSE; Start 05/06/16 at 15:30 Dextrose (D50w Syringe) 50 ml Q15M PRN IV DECREASED GLUCOSE; Start 05/06/16 at 15:30 Glucagon (Glucagen) 1 mg Q15M PRN IM DECREASED GLUCOSE; Start 05/06/16 at 15:30 Glucose (Glutose) 15 gm Q15M PRN BUCCAL DECREASED GLUCOSE; Start 05/06/16 at 15 :30 Gabapentin (Neurontin Liquid) 100 mg TID GTB Last administered on 05/11/16 12: 51; Admin Dose 100 MG; Start 05/07/16 at 22:00 Polyethylene Glycol (Miralax) 17 gm DAILY PRN PO CONSTIPATION; Start 05/10/16 at 14:00 Docusate Sodium 100 mg 100 mg BID PO Last administered on 05/11/16 08:42; Admin Dose 100 MG; Start 05/10/16 at 14:00 Sodium Chloride (NS) 1,000 ml @ 75 mls/hr [id number] ONCE IV Last administered on 05/11/16 12:51; Admin Dose 75 MLS/HR; Start 05/11/16 at 11:00; Stop 05/12/16 at 00:19 AISSATOU DUNCAN May 11, 2016 15:53
--- NOTE | 2016-05-11 16:19 | PN ---
DATE: 05/11/2016 PULMONARY FOLLOWUP SUBJECTIVE: The patient's general condition is the same. He is fully awake, alert, able to verbali ze to a limited extent through tracheostomy. His breathing appears unlabored. He has been off vent ilator for the past few days. PHYSICAL EXAMINATION: VITAL SIGNS: Show temperature 98.3, blood pressure 100/55, pulse rate of 71, respirations 18, pulse oximetry 99% saturation. NECK: Tracheal secretions are clear. No bleeding is seen. HEART: Regular rhythm. CHEST: Breath sounds are heard bilaterally, diminished in both the lower lung tierney with a few int ermittent rales and rhonchi. ABDOMEN: Soft, not tender. Tolerating oral feedings. EXTREMITIES: Show no edema. He is paraplegic. LABORATORY DATA: The lab tests show sodium 143, potassium 4.7, BUN 61, creatinine 1.89, glucose is 108. The patient is on cefepime. IMPRESSION: 1. Urosepsis. 2. Chronic respiratory failure. 3. Chronic kidney disease, improving. 4. Chronic anemia. 5. Spinal cord injury resulting in paraplegia. 6. Status post tracheostomy. 7. Status post gastrostomy. 8. Status post suprapubic cystostomy. PLAN: 1. Continue antibiotics as per the infectious disease decorator consultant. 2. Continue bronchodilator inhalation therapy through tracheostomy to improve the pulmonary hygiene . 3. Continue modification of respiratory status. As the patient has remained stable without the apollo tilator, he may not need the ventilator for long-term use. However, if there is any change in his ventilator status, ventilator support needs to be given, which can be relatively easy through his tr acheostomy. Dictated By: HUMBERTO PEREZ MD SR/NTS Conf#: [id number] DID#: [id number]
[2016-05-11] MEDS: ZOLPIDEM 5 MG TAB PO PRN (21:02)
[2016-05-12] VITALS (12 sets, daily range): BP systolic 102–128; BP diastolic 59–96; PULSE 68–86; RESP 15–20
[2016-05-12] MEDS: HYDROmorphONE 1 MG/ML SYG IV PRN ×6 (01:50→21:46)
[2016-05-12] MEDS: PANTOPRAZOLE (EC) 40 MG TAB PO SCH (05:37)
[2016-05-12 07:23] LABS: ADD SCAN DIFF NO
[2016-05-12 07:33] LABS: ABNORMAL IP MESSAGE 1; BASOPHILS % 0.5 % (0.0-2.0); EOSINOPHILS # 0.2 10^3/ul (0.0-0.5); EOSINOPHILS % 4.2 % (0.0-7.0); HEMATOCRIT 29.6 % (42.0-52.0); HEMOGLOBIN 8.5 g/dl (14.0-18.0); LYMPHOCYTES # 0.7 10^3/ul (0.8-2.9); LYMPHOCYTES % 15.6 % (15.0-51.0); MEAN CORPUSCULAR HEMOGLOBIN 29.7 pg (29.0-33.0); MEAN CORPUSCULAR HGB CONC 28.7 g/dl (32.0-37.0); MEAN CORPUSCULAR VOLUME 103.5 fl (82.0-101.0); MEAN PLATELET VOLUME 11.6 fl (7.4-10.4); MONOCYTE # 0.5 10^3/ul (0.3-0.9); MONOCYTES % 11.6 % (0.0-11.0); NEUTROPHIL # 2.9 10^3/ul (1.6-7.5); NEUTROPHILS % 67.6 % (39.0-77.0); PLATELET COUNT 116 10^3/UL (140-415); RED BLOOD COUNT 2.86 10^6/ul (4.70-6.10); RED CELL DISTRIBUTION WIDTH 14.1 % (11.5-14.5); WHITE BLOOD COUNT 4.3 10^3/ul (4.8-10.8)
[2016-05-12 07:50] LABS: CALCIUM 8.6 mg/dl (8.4-10.2); CREATININE 1.97 mg/dl (0.61-1.24); POTASSIUM 5.1 mmol/L (3.5-5.1)
[2016-05-12] MEDS: DOXYCYCLINE 100 MG TAB PO SCH ×2 (08:30→21:30)
[2016-05-12] MEDS: DOCUSATE SODIUM 100 MG CAP PO SCH ×2 (08:30→21:30)
[2016-05-12] MEDS: CITRIC ACID/NA CITRATE 30 ML CUP PO SCH ×3 (08:30→21:29)
[2016-05-12] MEDS: GABAPENTIN (50 MG/ML PO SYG) GTB SCH ×3 (08:30→21:29)
[2016-05-12] MEDS: CEFEPIME 1GM/50 ML (PMX) 50 ML IVPB SCH ×2 (08:31→21:29)
[2016-05-12] MEDS: ENOXAPARIN 30 MG/0.3 ML SYG SC SCH (08:43)
--- NOTE | 2016-05-12 11:15 | PN ---
DATE: 05/12/2016 PULMONARY FOLLOWUP SUBJECTIVE: The patient's general condition is the same. He is awake, verbal. He is breathing com fortably without ventilator support for the last few days. PHYSICAL EXAMINATION: VITAL SIGNS: Stable. Temperature 97.9, blood pressure 112/66, pulse rate of 89, respirations 20, p ulse oximetry 98% saturation. NECK: Tracheal secretions are clear. No bleeding is seen. HEART: Regular rhythm. CHEST: Lung tierney are clear bilaterally. ABDOMEN: Soft, tolerating oral feedings. Normal bowel sounds, no vomiting. EXTREMITIES: Show no edema. He is paraplegic. LABORATORY DATA: From today shows WBC 4300, hemoglobin 8.5, hematocrit 29.6, platelets decreased to 116,000. The chemistry panel shows sodium 141, potassium 5.1, BUN 58, creatinine 1.97, glucose 87. IMPRESSION: 1. Urosepsis, improving. 2. Chronic respiratory failure, stable off ventilator support. 3. Chronic kidney disease, improving. 4. Chronic anemia. 5. Spinal cord injury resulting in paraplegia. 6. Status post tracheostomy. 7. Status post gastrostomy. 8. Status post suprapubic cystostomy. PLAN: 1. Continue antibiotics as per the infectious disease weight loss sales consultant. 2. Continue bronchodilator inhalation therapy through tracheostomy to improve the pulmonary hygiene . Pulmonary status is stable. Discharge planning could be done. Dictated By: HUMBERTO PEREZ MD, SR/QUE Conf#: [id number] DID#: [id number]
--- NOTE | 2016-05-12 12:54 | CONS ---
Date/Time of Note Date/Time of Note DATE: 05/12/16 TIME: 12:52 Assessment/Plan Assessment/Plan Additional Assessment/Plan 1. Acute kidney injury secondary to severe prerenal azotemia and possible acute tubular necrosis from sepsis secondary to urinary tract infection. 2. Acute uremia with a BUN of 131.- slowly improving with D5W 3. Metabolic acidosis due to the worsening renal failure. 4. Urinary tract infection with urinalysis positive for nitrites. on IV abx 5. 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 6. History of neurogenic bladder with urinary retention, status post suprapubic catheter. 7. History of previous recurrent urinary tract infections. 8. 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 9. 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 10. Other medical history includes anxiety, depression, bipolar disorder, psychosis. 11. History of right nephrectomy with left renal nephrolithiasis and a left renal cyst measuring 5.3 cm in size. PLAN: Cr 1.97, s/p 1 L NS yesterday, continue bicitra, BMP in AM pt only has left kidney in place, with stone in in left kidney and left renal cyst 5.3cm, in size no evidence of hematuria Preserved EF on echocardiogram March 02, 2016, lap maker has been following will follow up Consultation Date/Type/Reason Admit Date/Time Initial Consult Date 05/03/2016 Type of Consultation: NEPHROLOGY Referring Provider: JOSÉ ANTONIO MIRZA MD 24 HR Interval Summary Free Text/Dictation doing ok, BP stable, afebrile Exam/Review of Systems Vital Signs Vitals Vital Signs Date Time Temp Pulse Resp B/P Pulse Ox O2 Delivery O2 Flow Rate FiO2 05/12/16 12:43 82 05/12/16 11:22 98.2 18 102/59 95 05/12/16 09:39 Aerosol 5.0 28 Intake and Output 05/11/16 05/11/16 05/12/16 15:00 23:00 07:00 Intake Total 810 ml 690 ml Output Total 1600 ml Balance 810 ml -910 ml Exam GENERAL: This is a chronically ill-appearing, middle-aged white man, who is lying comfortably in bed. HEENT: Head atraumatic, normocephalic. Sclerae anicteric. Buccal mucosa pink. NECK: Supple. Tracheostomy present. CHEST: Chest rise is symmetrical. Breath sounds diminished to the bases. HEART: S1, S2. ABDOMEN: Soft. Bowel tones present. EXTREMITIES: Wasted, contractured. Results Result Diagram: 05/12/16 0608 05/12/16 0608 Results 24 hrs Laboratory Tests Test 05/11/16 15:20 05/12/16 06:08 White Blood Count 4.6 #L 4.3 L Red Blood Count 2.92 L 2.86 L Hemoglobin 8.8 L 8.5 L Hematocrit 30.0 L 29.6 L Mean Corpuscular Volume 102.7 H 103.5 H Mean Corpuscular Hemoglobin 30.1 29.7 Mean Corpuscular Hemoglobin Concent 29.3 L 28.7 L Red Cell Distribution Width 14.1 14.1 Platelet Count 106 L 116 L Mean Platelet Volume 11.3 H 11.6 H Neutrophils % 66.3 67.6 Lymphocytes % 16.1 15.6 Monocytes % 11.8 H 11.6 H Eosinophils % 5.2 4.2 Basophils % 0.2 0.5 Nucleated Red Blood Cells % 0.0 0.0 Neutrophils # 3.0 2.9 Lymphocytes # 0.7 L 0.7 L Monocytes # 0.5 0.5 Eosinophils # 0.2 0.2 Basophils # 0.0 0.0 Nucleated Red Blood Cells # 0.0 0.0 Sodium Level 141 Potassium Level 5.1 Chloride Level 109 Carbon Dioxide Level 26 Anion Gap 11 # Blood Urea Nitrogen 58 H Creatinine 1.97 H Glucose Level 87 Calcium Level 8.6 Medications Medications Current Medications Enoxaparin Sodium (Lovenox) 30 mg DAILY SC Last administered on 05/12/16 08:43 ; Admin Dose 30 MG; Start 05/04/16 at 09:00 Pantoprazole 40 mg 40 mg DAILY@06 PO Last administered on 05/12/16 05:37; Admin Dose 40 MG; Start 05/04/16 at 06:00 Cefepime HCl (Maxipime 1gm/50 ml (Pmx)) 50 ml @ 100 mls/hr Q12 IVPB Last administered on 05/12/16 08:31; Admin Dose 100 MLS/HR; Start 05/03/16 at 23:00 Hydromorphone HCl (Dilaudid) 1 mg Q4 PRN IV SEVERE PAIN LEVEL 7-10 Last administered on 05/12/16 10:04; Admin Dose 1 MG; Start 05/03/16 at 18:30 Citric Acid/ Sodium Citrate (Bicitra) 30 ml TID PO Last administered on 08:30; Admin Dose 30 ML; Start 05/04/16 at 13:00 Silver Nitrate 1 stick 1 stick Q7D TOP Last administered on 05/05/16 18:05; Admin Dose 1 STICK; Start 05/05/16 at 16:30; Stop 05/12/16 at 16:31 Norepinephrine/ Dextrose (Levophed/D5W) 500 ml @ 1.87 mls/hr TITRATE IV ; Start 05/05/16 at 20:00 Zolpidem Tartrate (Ambien) 5 mg HS PRN PO INSOMNIA Last administered on 21:02; Admin Dose 5 MG; Start 05/05/16 at 20:30 IV Flush (NS 10 ml) 10 ml PRN PRN IV IV PROTOCOL; Start 05/06/16 at 12:30 Doxycycline Hyclate (Vibramycin) 100 mg BID PO Last administered on 05/12/16 08 :30; Admin Dose 100 MG; Start 05/06/16 at 21:00 Miscellaneous Information 1 ea NOTE XX ; Start 05/06/16 at 15:30 Glucose (Glutose) 15 gm Q15M PRN PO DECREASED GLUCOSE; Start 05/06/16 at 15:30 Glucose (Glutose) 22.5 gm Q15M PRN PO DECREASED GLUCOSE; Start 05/06/16 at 15: 30 Dextrose (D50w Syringe) 25 ml Q15M PRN IV DECREASED GLUCOSE; Start 05/06/16 at 15:30 Dextrose (D50w Syringe) 50 ml Q15M PRN IV DECREASED GLUCOSE; Start 05/06/16 at 15:30 Glucagon (Glucagen) 1 mg Q15M PRN IM DECREASED GLUCOSE; Start 05/06/16 at 15:30 Glucose (Glutose) 15 gm Q15M PRN BUCCAL DECREASED GLUCOSE; Start 05/06/16 at 15 :30 Gabapentin (Neurontin Liquid) 100 mg TID GTB Last administered on 05/12/16 08: 30; Admin Dose 100 MG; Start 05/07/16 at 22:00 Polyethylene Glycol (Miralax) 17 gm DAILY PRN PO CONSTIPATION; Start 05/10/16 at 14:00 Docusate Sodium (Colace) 100 mg BID PO Last administered on 05/12/16 08:30; Admin Dose 100 MG; Start 05/10/16 at 14:00 TIARA CISNEROS MD May 12, 2016 12:54
--- NOTE | 2016-05-12 14:17 | PN ---
Date/Time of Note Date/Time of Note DATE: 05/12/16 TIME: 14:12 Assessment/Plan Lines/Catheters IV Catheter Type (from Nrs): PICC Line Subjective 24 Hr Interval Summary Constitutional: improved Eyes: no complaints ENT: no complaints Respiratory: no complaints Cardiovascular: no complaints Gastrointestinal: no complaints Genitourinary: no complaints Musculoskeletal: no complaints Neurologic: no complaints Endocrine: no complaints Lymphatic: no complaints Exam/Review of Systems Vital Signs Vitals Vital Signs Date Time Temp Pulse Resp B/P Pulse Ox O2 Delivery O2 Flow Rate FiO2 05/12/16 12:43 82 05/12/16 11:22 98.2 18 102/59 95 05/12/16 09:39 Aerosol 5.0 28 Intake and Output 05/11/16 05/11/16 05/12/16 15:00 23:00 07:00 Intake Total 810 ml 690 ml Output Total 1600 ml Balance 810 ml -910 ml Exam Constitutional: alert, well developed Eyes: EOMI, nl sclera ENMT: nl external ears & nose Neck: non-tender Respiratory: diminished breath sounds Cardiovascular: nl pulses Gastrointestinal: non-tender, soft Musculoskeletal: muscle weakness Extremities: normal pulses Neurological: other Skin: other Lymph: nontender Results Result Diagram: 05/12/16 0608 05/12/16 0608 Results 24 hrs Laboratory Tests Test 05/11/16 15:20 05/12/16 06:08 White Blood Count 4.6 #L 4.3 L Red Blood Count 2.92 L 2.86 L Hemoglobin 8.8 L 8.5 L Hematocrit 30.0 L 29.6 L Mean Corpuscular Volume 102.7 H 103.5 H Mean Corpuscular Hemoglobin 30.1 29.7 Mean Corpuscular Hemoglobin Concent 29.3 L 28.7 L Red Cell Distribution Width 14.1 14.1 Platelet Count 106 L 116 L Mean Platelet Volume 11.3 H 11.6 H Neutrophils % 66.3 67.6 Lymphocytes % 16.1 15.6 Monocytes % 11.8 H 11.6 H Eosinophils % 5.2 4.2 Basophils % 0.2 0.5 Nucleated Red Blood Cells % 0.0 0.0 Neutrophils # 3.0 2.9 Lymphocytes # 0.7 L 0.7 L Monocytes # 0.5 0.5 Eosinophils # 0.2 0.2 Basophils # 0.0 0.0 Nucleated Red Blood Cells # 0.0 0.0 Sodium Level 141 Potassium Level 5.1 Chloride Level 109 Carbon Dioxide Level 26 Anion Gap 11 # Blood Urea Nitrogen 58 H Creatinine 1.97 H Glucose Level 87 Calcium Level 8.6 Medications Medications Current Medications Enoxaparin Sodium (Lovenox) 30 mg DAILY SC Last administered on 05/12/16 08:43 ; Admin Dose 30 MG; Start 05/04/16 at 09:00 Pantoprazole 40 mg 40 mg DAILY@06 PO Last administered on 05/12/16 05:37; Admin Dose 40 MG; Start 05/04/16 at 06:00 Cefepime HCl (Maxipime 1gm/50 ml (Pmx)) 50 ml @ 100 mls/hr Q12 IVPB Last administered on 05/12/16 08:31; Admin Dose 100 MLS/HR; Start 05/03/16 at 23:00 Hydromorphone HCl (Dilaudid) 1 mg Q4 PRN IV SEVERE PAIN LEVEL 7-10 Last administered on 05/12/16 13:51; Admin Dose 1 MG; Start 05/03/16 at 18:30 Citric Acid/ Sodium Citrate (Bicitra) 30 ml TID PO Last administered on 13:03; Admin Dose 30 ML; Start 05/04/16 at 13:00 Silver Nitrate 1 stick 1 stick Q7D TOP Last administered on 05/05/16 18:05; Admin Dose 1 STICK; Start 05/05/16 at 16:30; Stop 05/12/16 at 16:31 Norepinephrine/ Dextrose (Levophed/D5W) 500 ml @ 1.87 mls/hr TITRATE IV ; Start 05/05/16 at 20:00 Zolpidem Tartrate (Ambien) 5 mg HS PRN PO INSOMNIA Last administered on 21:02; Admin Dose 5 MG; Start 05/05/16 at 20:30 IV Flush (NS 10 ml) 10 ml PRN PRN IV IV PROTOCOL; Start 05/06/16 at 12:30 Doxycycline Hyclate (Vibramycin) 100 mg BID PO Last administered on 05/12/16 08 :30; Admin Dose 100 MG; Start 05/06/16 at 21:00 Miscellaneous Information 1 ea NOTE XX ; Start 05/06/16 at 15:30 Glucose (Glutose) 15 gm Q15M PRN PO DECREASED GLUCOSE; Start 05/06/16 at 15:30 Glucose (Glutose) 22.5 gm Q15M PRN PO DECREASED GLUCOSE; Start 05/06/16 at 15: 30 Dextrose (D50w Syringe) 25 ml Q15M PRN IV DECREASED GLUCOSE; Start 05/06/16 at 15:30 Dextrose (D50w Syringe) 50 ml Q15M PRN IV DECREASED GLUCOSE; Start 05/06/16 at 15:30 Glucagon (Glucagen) 1 mg Q15M PRN IM DECREASED GLUCOSE; Start 05/06/16 at 15:30 Glucose (Glutose) 15 gm Q15M PRN BUCCAL DECREASED GLUCOSE; Start 05/06/16 at 15 :30 Gabapentin (Neurontin Liquid) 100 mg TID GTB Last administered on 05/12/16 13: 03; Admin Dose 100 MG; Start 05/07/16 at 22:00 Polyethylene Glycol (Miralax) 17 gm DAILY PRN PO CONSTIPATION; Start 05/10/16 at 14:00 Docusate Sodium (Colace) 100 mg BID PO Last administered on 05/12/16 08:30; Admin Dose 100 MG; Start 05/10/16 at 14:00 NAE VELAZCO May 12, 2016 14:16
[2016-05-12] MEDS: SILVER NITRATE SWAB TOP SCH (16:18)
[2016-05-12] MEDS: ZOLPIDEM 5 MG TAB PO PRN (21:46)
[2016-05-13] VITALS (12 sets, daily range): BP systolic 101–120; BP diastolic 59–81; PULSE 68–86; RESP 18–20
[2016-05-13] MEDS: HYDROmorphONE 1 MG/ML SYG IV PRN ×5 (02:48→20:30)
[2016-05-13] MEDS: PANTOPRAZOLE (EC) 40 MG TAB PO SCH (05:43)
[2016-05-13 06:00] LABS: ADD SCAN DIFF NO
[2016-05-13 06:27] LABS: BASOPHILS % 0.2 % (0.0-2.0); EOSINOPHILS # 0.2 10^3/ul (0.0-0.5); EOSINOPHILS % 3.6 % (0.0-7.0); HEMATOCRIT 31.3 % (42.0-52.0); HEMOGLOBIN 9.2 g/dl (14.0-18.0); LYMPHOCYTES # 0.7 10^3/ul (0.8-2.9); LYMPHOCYTES % 13.2 % (15.0-51.0); MEAN CORPUSCULAR HEMOGLOBIN 30.1 pg (29.0-33.0); MEAN CORPUSCULAR HGB CONC 29.4 g/dl (32.0-37.0); MEAN CORPUSCULAR VOLUME 102.3 fl (82.0-101.0); MEAN PLATELET VOLUME 12.1 fl (7.4-10.4); MONOCYTE # 0.5 10^3/ul (0.3-0.9); MONOCYTES % 8.8 % (0.0-11.0); NEUTROPHIL # 4.1 10^3/ul (1.6-7.5); PLATELET COUNT 130 10^3/UL (140-415); RED BLOOD COUNT 3.06 10^6/ul (4.70-6.10); WHITE BLOOD COUNT 5.5 10^3/ul (4.8-10.8)
[2016-05-13 07:08] LABS: CALCIUM 8.9 mg/dl (8.4-10.2); CREATININE 1.79 mg/dl (0.61-1.24); POTASSIUM 5.5 mmol/L (3.5-5.1)
[2016-05-13] MEDS: GABAPENTIN (50 MG/ML PO SYG) GTB SCH ×3 (09:18→20:32)
[2016-05-13] MEDS: DOXYCYCLINE 100 MG TAB PO SCH ×2 (09:18→20:32)
[2016-05-13] MEDS: DOCUSATE SODIUM 100 MG CAP PO SCH ×3 (09:18→20:41)
[2016-05-13] MEDS: CITRIC ACID/NA CITRATE 30 ML CUP PO SCH ×3 (09:18→20:32)
[2016-05-13] MEDS: ENOXAPARIN 30 MG/0.3 ML SYG SC SCH (09:46)
[2016-05-13] MEDS: CEFEPIME 1GM/50 ML (PMX) 50 ML IVPB SCH ×2 (09:46→20:46)
--- NOTE | 2016-05-13 11:02 | PN ---
DATE: 05/13/2016 SUBJECTIVE: The patient is fully awake, alert, trying to talk through tracheostomy. He is breathin g comfortably off ventilator support for the last several days. PHYSICAL EXAMINATION: GENERAL: Stable. No shortness of breath is noted. VITAL SIGNS: Temperature is 98.1. Heart rate is 86, respirations 18, blood pressure 101/65, pulse oximetry is 98 on ____0% oxygen. NECK: Tracheostomy secretions are clear. No bleeding is seen. HEART: Regular rhythm. Normal first and second heart sounds. CHEST: Breath sounds are heard bilaterally diminished in both the lower lung tierney but otherwise c lear. ABDOMEN: Soft. He is eating orally. Normal bowel sounds. EXTREMITIES: Show no edema. He is paraplegic. LABORATORY DATA: Show sodium 142, potassium 5.5, BUN 68, creatinine 1.79, glucose 92, because of hi s chronic kidney disease BUN and creatinine are not totally normalized but had shown significant imp rovement since the time of his admission. The CBC shows a WBC 5500, hemoglobin 9.2, hematocrit 31.3 , platelets are within normal, platelets are decreased, but gradually coming up to 138,000 today. IMPRESSION: 1. Urosepsis, improving. 2. Chronic respiratory failure, stable off ventilator support. 3. Chronic kidney disease, improving. 4. Chronic anemia. 5. Spinal cord injury resulting in paraplegia. 6. Status post tracheostomy. 7. Status post gastrostomy. 8. Status post suprapubic cystotomy. PLAN: 1. Continue antibiotics as per the infectious disease bilingual sales consultant. 2. Continue bronchodilator inhalation therapy through tracheostomy to improve the pulmonary hygiene . 3. Continue oral feedings as tolerated. The patient's pulmonary status is stable. Okay for discharge planning to send him back to the [facility]. Dictated By: HUMBERTO PEREZ MD SR/NTS Conf#: [id number] DID#: [id number]
--- NOTE | 2016-05-13 13:08 | PN ---
Date/Time of Note Date/Time of Note DATE: 05/13/16 TIME: 13:07 Assessment/Plan VTE Prophylaxis VTE Prophylaxis Intervention: SCD's Lines/Catheters IV Catheter Type (from Nrs): PICC Line Central line still needed: Yes Assessment/Plan Chief Complaint/Hosp Course ASSESSMENT AND PLAN: 1. Polymicrobial Urinary tract infection. Continue antibiotics per ID. Dr. Maciel is following patient in infection disease consultation. 2. Acute kidney injury on top of chronic kidney disease. Status post right nephrectomy. Left nephrolithiasis and renal cyst. Dr. Barker is following in nephrology consultation. Continue to monitor BUN and creatinine. 3. Ventilator-dependent respiratory failure with tracheostomy. is following patient in pulmonary consultation. Continue bronchodilators and ventilatory support. 4. Multiple decubitus ulcers present on admission. Continue zinc sulfate, multivitamins and offloading and current wound care. 5. Cervical spine injury with paraplegia. 6. Bipolar disorder with psychosis. Continue patient on risperidone b.i.d. and Lexapro. 7. Iron deficiency anemia. Continue patient on iron supplements. 8. Neurogenic bladder with suprapubic catheter. 9. Dysphagia with PEG. Continue Lovenox for deep venous thrombosis prophylaxis and Protonix for peptic ulcer disease prophylaxis. Further recommendations based on clinical course. Plan of care discussed with Dr. Barreto. Problems: Subjective 24 Hr Interval Summary Free Text/Dictation No acute events overnight, patient looks comfortable, currently on supplemental oxygen via T-tube. Exam/Review of Systems Vital Signs Vitals Vital Signs Date Time Temp Pulse Resp B/P Pulse Ox O2 Delivery O2 Flow Rate FiO2 05/13/16 12:04 85 05/13/16 11:38 98.6 19 110/66 97 05/13/16 02:14 Aerosol 5.0 28 Intake and Output 05/12/16 05/12/16 05/13/16 15:00 23:00 07:00 Intake Total 100 ml 450 ml 750 ml Output Total 500 ml 1300 ml 1800 ml Balance -400 ml -850 ml -1050 ml Exam PHYSICAL ASSESSMENT: GENERAL: Well-developed, debilitated, cachectic male currently is awake, alert , follows immediate commands. HEENT: Head is atraumatic, normocephalic. PERRLA. NECK: Supple. There is a tracheostomy at the base of the neck with no bleeding. LUNGS: The patient has scattered rhonchi bilaterally, slightly diminished at the bases. There is no wheezing noted. CARDIOVASCULAR: Normal S1, S2. No murmurs, gallops, clicks, rubs noted. The patient is slightly tachycardic. ABDOMEN: Flat, soft, nondistended, nontender. G-tube with intact stoma. The patient also has a suprapubic catheter with intact stoma. EXTREMITIES: Contracted. SKIN: The patient has sacral ulcers present on admission. There is no rash, petechiae noted. NEUROLOGIC: The patient is awake, alert and oriented, following immediate commands, with paraplegia. Results Result Diagram: 05/13/16 0545 05/13/16 0545 Results 24 hrs Laboratory Tests Test 05/13/16 05:45 White Blood Count 5.5 # Red Blood Count 3.06 L Hemoglobin 9.2 L Hematocrit 31.3 L Mean Corpuscular Volume 102.3 H Mean Corpuscular Hemoglobin 30.1 Mean Corpuscular Hemoglobin Concent 29.4 L Red Cell Distribution Width 14.0 Platelet Count 130 L Mean Platelet Volume 12.1 H Neutrophils % 74.0 Lymphocytes % 13.2 L Monocytes % 8.8 Eosinophils % 3.6 Basophils % 0.2 Nucleated Red Blood Cells % 0.0 Neutrophils # 4.1 Lymphocytes # 0.7 L Monocytes # 0.5 Eosinophils # 0.2 Basophils # 0.0 Nucleated Red Blood Cells # 0.0 Sodium Level 142 Potassium Level 5.5 H Chloride Level 108 Carbon Dioxide Level 24 Anion Gap 16 Blood Urea Nitrogen 68 H Creatinine 1.79 H Glucose Level 92 Calcium Level 8.9 Medications Medications Current Medications Enoxaparin Sodium (Lovenox) 30 mg DAILY SC Last administered on 05/13/16 09:46 ; Admin Dose 30 MG; Start 05/04/16 at 09:00 Pantoprazole 40 mg 40 mg DAILY@06 PO Last administered on 05/13/16 05:43; Admin Dose 40 MG; Start 05/04/16 at 06:00 Cefepime HCl (Maxipime 1gm/50 ml (Pmx)) 50 ml @ 100 mls/hr Q12 IVPB Last administered on 05/13/16 09:46; Admin Dose 100 MLS/HR; Start 05/03/16 at 23:00; Stop 05/16/16 at 06:00 Hydromorphone HCl (Dilaudid) 1 mg Q4 PRN IV SEVERE PAIN LEVEL 7-10 Last administered on 05/13/16 12:10; Admin Dose 1 MG; Start 05/03/16 at 18:30 Citric Acid/ Sodium Citrate (Bicitra) 30 ml TID PO Last administered on 12:20; Admin Dose 30 ML; Start 05/04/16 at 13:00 Zolpidem Tartrate (Ambien) 5 mg HS PRN PO INSOMNIA Last administered on 21:46; Admin Dose 5 MG; Start 05/05/16 at 20:30 IV Flush (NS 10 ml) 10 ml PRN PRN IV IV PROTOCOL; Start 05/06/16 at 12:30 Doxycycline Hyclate (Vibramycin) 100 mg BID PO Last administered on 05/13/16 09 :18; Admin Dose 100 MG; Start 05/06/16 at 21:00; Stop 05/16/16 at 06:00 Miscellaneous Information 1 ea NOTE XX ; Start 05/06/16 at 15:30 Glucose (Glutose) 15 gm Q15M PRN PO DECREASED GLUCOSE; Start 05/06/16 at 15:30 Glucose (Glutose) 22.5 gm Q15M PRN PO DECREASED GLUCOSE; Start 05/06/16 at 15: 30 Dextrose (D50w Syringe) 25 ml Q15M PRN IV DECREASED GLUCOSE; Start 05/06/16 at 15:30 Dextrose (D50w Syringe) 50 ml Q15M PRN IV DECREASED GLUCOSE; Start 05/06/16 at 15:30 Glucagon (Glucagen) 1 mg Q15M PRN IM DECREASED GLUCOSE; Start 05/06/16 at 15:30 Glucose (Glutose) 15 gm Q15M PRN BUCCAL DECREASED GLUCOSE; Start 05/06/16 at 15 :30 Gabapentin (Neurontin Liquid) 100 mg TID GTB Last administered on 05/13/16 12: 10; Admin Dose 100 MG; Start 05/07/16 at 22:00 Polyethylene Glycol (Miralax) 17 gm DAILY PRN PO CONSTIPATION; Start 05/10/16 at 14:00 Docusate Sodium (Colace) 100 mg BID PO Last administered on 05/13/16 09:18; Admin Dose 100 MG; Start 05/10/16 at 14:00 Acetaminophen (Tylenol Tab) 650 mg Q6H PRN PO PAIN AND OR ELEVATED TEMP; Start 05/12/16 at 15:00 AISSATOU DUNCAN May 13, 2016 13:08
--- NOTE | 2016-05-13 14:02 | CONS ---
Date/Time of Note Date/Time of Note DATE: 05/13/16 TIME: 14:01 Assessment/Plan Assessment/Plan Additional Assessment/Plan 1. Acute kidney injury secondary to severe prerenal azotemia and possible acute tubular necrosis from sepsis secondary to urinary tract infection. 2. Acute uremia with a BUN of 131.- slowly improving with D5W 3. Metabolic acidosis due to the worsening renal failure. 4. Urinary tract infection with urinalysis positive for nitrites. on IV abx 5. 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 6. History of neurogenic bladder with urinary retention, status post suprapubic catheter. 7. History of previous recurrent urinary tract infections. 8. 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 9. 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 10. Other medical history includes anxiety, depression, bipolar disorder, psychosis. 11. History of right nephrectomy with left renal nephrolithiasis and a left renal cyst measuring 5.3 cm in size. 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 Consultation Date/Type/Reason Admit Date/Time Initial Consult Date 05/03/2016 Type of Consultation: NEPHROLOGY Referring Provider: JOSÉ ANTONIO MIRZA MD 24 HR Interval Summary Free Text/Dictation no acute events, Remained on telemetry floor Exam/Review of Systems Vital Signs Vitals Vital Signs Date Time Temp Pulse Resp B/P Pulse Ox O2 Delivery O2 Flow Rate FiO2 05/13/16 12:04 85 05/13/16 11:38 98.6 19 110/66 97 05/13/16 02:14 Aerosol 5.0 28 Intake and Output 05/12/16 05/12/16 05/13/16 15:00 23:00 07:00 Intake Total 100 ml 450 ml 750 ml Output Total 500 ml 1300 ml 1800 ml Balance -400 ml -850 ml -1050 ml Results Result Diagram: 05/13/16 0545 05/13/16 0545 Results 24 hrs Laboratory Tests Test 05/13/16 05:45 White Blood Count 5.5 # Red Blood Count 3.06 L Hemoglobin 9.2 L Hematocrit 31.3 L Mean Corpuscular Volume 102.3 H Mean Corpuscular Hemoglobin 30.1 Mean Corpuscular Hemoglobin Concent 29.4 L Red Cell Distribution Width 14.0 Platelet Count 130 L Mean Platelet Volume 12.1 H Neutrophils % 74.0 Lymphocytes % 13.2 L Monocytes % 8.8 Eosinophils % 3.6 Basophils % 0.2 Nucleated Red Blood Cells % 0.0 Neutrophils # 4.1 Lymphocytes # 0.7 L Monocytes # 0.5 Eosinophils # 0.2 Basophils # 0.0 Nucleated Red Blood Cells # 0.0 Sodium Level 142 Potassium Level 5.5 H Chloride Level 108 Carbon Dioxide Level 24 Anion Gap 16 Blood Urea Nitrogen 68 H Creatinine 1.79 H Glucose Level 92 Calcium Level 8.9 Medications Medications Current Medications Enoxaparin Sodium (Lovenox) 30 mg DAILY SC Last administered on 05/13/16 09:46 ; Admin Dose 30 MG; Start 05/04/16 at 09:00 Pantoprazole 40 mg 40 mg DAILY@06 PO Last administered on 05/13/16 05:43; Admin Dose 40 MG; Start 05/04/16 at 06:00 Cefepime HCl (Maxipime 1gm/50 ml (Pmx)) 50 ml @ 100 mls/hr Q12 IVPB Last administered on 05/13/16 09:46; Admin Dose 100 MLS/HR; Start 05/03/16 at 23:00; Stop 05/16/16 at 06:00 Hydromorphone HCl (Dilaudid) 1 mg Q4 PRN IV SEVERE PAIN LEVEL 7-10 Last administered on 05/13/16 12:10; Admin Dose 1 MG; Start 05/03/16 at 18:30 Citric Acid/ Sodium Citrate (Bicitra) 30 ml TID PO Last administered on 12:20; Admin Dose 30 ML; Start 05/04/16 at 13:00 Zolpidem Tartrate (Ambien) 5 mg HS PRN PO INSOMNIA Last administered on 21:46; Admin Dose 5 MG; Start 05/05/16 at 20:30 IV Flush (NS 10 ml) 10 ml PRN PRN IV IV PROTOCOL; Start 05/06/16 at 12:30 Doxycycline Hyclate (Vibramycin) 100 mg BID PO Last administered on 05/13/16 09 :18; Admin Dose 100 MG; Start 05/06/16 at 21:00; Stop 05/16/16 at 06:00 Miscellaneous Information 1 ea NOTE XX ; Start 05/06/16 at 15:30 Glucose (Glutose) 15 gm Q15M PRN PO DECREASED GLUCOSE; Start 05/06/16 at 15:30 Glucose (Glutose) 22.5 gm Q15M PRN PO DECREASED GLUCOSE; Start 05/06/16 at 15: 30 Dextrose (D50w Syringe) 25 ml Q15M PRN IV DECREASED GLUCOSE; Start 05/06/16 at 15:30 Dextrose (D50w Syringe) 50 ml Q15M PRN IV DECREASED GLUCOSE; Start 05/06/16 at 15:30 Glucagon (Glucagen) 1 mg Q15M PRN IM DECREASED GLUCOSE; Start 05/06/16 at 15:30 Glucose (Glutose) 15 gm Q15M PRN BUCCAL DECREASED GLUCOSE; Start 05/06/16 at 15 :30 Gabapentin (Neurontin Liquid) 100 mg TID GTB Last administered on 05/13/16 12: 10; Admin Dose 100 MG; Start 05/07/16 at 22:00 Polyethylene Glycol (Miralax) 17 gm DAILY PRN PO CONSTIPATION; Start 05/10/16 at 14:00 Docusate Sodium (Colace) 100 mg BID PO Last administered on 05/13/16 09:18; Admin Dose 100 MG; Start 05/10/16 at 14:00 Acetaminophen (Tylenol Tab) 650 mg Q6H PRN PO PAIN AND OR ELEVATED TEMP; Start 05/12/16 at 15:00 TIARA CISNEROS MD May 13, 2016 14:02
--- NOTE | 2016-05-13 14:16 | CONS ---
Date/Time of Note Date/Time of Note DATE: 05/13/16 TIME: 14:14 Assessment/Plan Assessment/Plan Additional Assessment/Plan Acute kidney injury Hypotension, improved Sepsis Respiratory Failure Preserved EF on echocardiogram March 02, 2016 History of intermittent Mob[place] I Chronic pain syndrome -Blood pressure trend overall remains stable. IV fluids as per our nephrology colleagues. No antihypertensive medications at the current time. Consultation Date/Type/Reason Admit Date/Time May 04, 2016 at 12:27 Initial Consult Date 05/05/16 Type of Consultation: cv Referring Provider: JOSÉ ANTONIO MIRZA MD 24 HR Interval Summary Free Text/Dictation Patient denies shortness of breath, chest pain Exam/Review of Systems Vital Signs Vitals Vital Signs Date Time Temp Pulse Resp B/P Pulse Ox O2 Delivery O2 Flow Rate FiO2 05/13/16 12:04 85 05/13/16 11:38 98.6 19 110/66 97 05/13/16 02:14 Aerosol 5.0 28 Intake and Output 05/12/16 05/12/16 05/13/16 14:59 22:59 06:59 Intake Total 100 ml 450 ml 750 ml Output Total 500 ml 1300 ml 1800 ml Balance -400 ml -850 ml -1050 ml Exam No apparent distress Constitutional: alert, oriented Head: normocephalic Neck: other (Tracheostomy) Respiratory: other (Coarse breath sounds bilaterally, no wheezing) Cardiovascular: other (S1-S2 heard), regular rate and rhythm Gastrointestinal: bowel sounds, non-tender, soft Extremities: other (No edema) Results Result Diagram: 05/13/16 0545 05/13/16 0545 Results 24 hrs Laboratory Tests Test 05/13/16 05:45 White Blood Count 5.5 # Red Blood Count 3.06 L Hemoglobin 9.2 L Hematocrit 31.3 L Mean Corpuscular Volume 102.3 H Mean Corpuscular Hemoglobin 30.1 Mean Corpuscular Hemoglobin Concent 29.4 L Red Cell Distribution Width 14.0 Platelet Count 130 L Mean Platelet Volume 12.1 H Neutrophils % 74.0 Lymphocytes % 13.2 L Monocytes % 8.8 Eosinophils % 3.6 Basophils % 0.2 Nucleated Red Blood Cells % 0.0 Neutrophils # 4.1 Lymphocytes # 0.7 L Monocytes # 0.5 Eosinophils # 0.2 Basophils # 0.0 Nucleated Red Blood Cells # 0.0 Sodium Level 142 Potassium Level 5.5 H Chloride Level 108 Carbon Dioxide Level 24 Anion Gap 16 Blood Urea Nitrogen 68 H Creatinine 1.79 H Glucose Level 92 Calcium Level 8.9 Medications Medications Current Medications Enoxaparin Sodium (Lovenox) 30 mg DAILY SC Last administered on 05/13/16 09:46 ; Admin Dose 30 MG; Start 05/04/16 at 09:00 Pantoprazole 40 mg 40 mg DAILY@06 PO Last administered on 05/13/16 05:43; Admin Dose 40 MG; Start 05/04/16 at 06:00 Cefepime HCl (Maxipime 1gm/50 ml (Pmx)) 50 ml @ 100 mls/hr Q12 IVPB Last administered on 05/13/16 09:46; Admin Dose 100 MLS/HR; Start 05/03/16 at 23:00; Stop 05/16/16 at 06:00 Hydromorphone HCl (Dilaudid) 1 mg Q4 PRN IV SEVERE PAIN LEVEL 7-10 Last administered on 05/13/16 12:10; Admin Dose 1 MG; Start 05/03/16 at 18:30 Citric Acid/ Sodium Citrate (Bicitra) 30 ml TID PO Last administered on 12:20; Admin Dose 30 ML; Start 05/04/16 at 13:00 Zolpidem Tartrate (Ambien) 5 mg HS PRN PO INSOMNIA Last administered on 21:46; Admin Dose 5 MG; Start 05/05/16 at 20:30 IV Flush (NS 10 ml) 10 ml PRN PRN IV IV PROTOCOL; Start 05/06/16 at 12:30 Doxycycline Hyclate (Vibramycin) 100 mg BID PO Last administered on 05/13/16 09 :18; Admin Dose 100 MG; Start 05/06/16 at 21:00; Stop 05/16/16 at 06:00 Miscellaneous Information 1 ea NOTE XX ; Start 05/06/16 at 15:30 Glucose (Glutose) 15 gm Q15M PRN PO DECREASED GLUCOSE; Start 05/06/16 at 15:30 Glucose (Glutose) 22.5 gm Q15M PRN PO DECREASED GLUCOSE; Start 05/06/16 at 15: 30 Dextrose (D50w Syringe) 25 ml Q15M PRN IV DECREASED GLUCOSE; Start 05/06/16 at 15:30 Dextrose (D50w Syringe) 50 ml Q15M PRN IV DECREASED GLUCOSE; Start 05/06/16 at 15:30 Glucagon (Glucagen) 1 mg Q15M PRN IM DECREASED GLUCOSE; Start 05/06/16 at 15:30 Glucose (Glutose) 15 gm Q15M PRN BUCCAL DECREASED GLUCOSE; Start 05/06/16 at 15 :30 Gabapentin (Neurontin Liquid) 100 mg TID GTB Last administered on 05/13/16 12: 10; Admin Dose 100 MG; Start 05/07/16 at 22:00 Polyethylene Glycol (Miralax) 17 gm DAILY PRN PO CONSTIPATION; Start 05/10/16 at 14:00 Docusate Sodium (Colace) 100 mg BID PO Last administered on 05/13/16 09:18; Admin Dose 100 MG; Start 05/10/16 at 14:00 Acetaminophen (Tylenol Tab) 650 mg Q6H PRN PO PAIN AND OR ELEVATED TEMP; Start 05/12/16 at 15:00 Deandre Chavez DO May 13, 2016 14:16
[2016-05-13] MEDS: ZOLPIDEM 5 MG TAB PO PRN (20:46)
[2016-05-14] VITALS (11 sets, daily range): BP systolic 103–111; BP diastolic 62–77; PULSE 67–82; RESP 18–20
[2016-05-14] MEDS: HYDROmorphONE 1 MG/ML SYG IV PRN ×6 (01:25→23:52)
[2016-05-14] MEDS: PANTOPRAZOLE (EC) 40 MG TAB PO SCH (06:20)
[2016-05-14 07:18] LABS: POTASSIUM 5.3 mmol/L (3.5-5.1)
[2016-05-14 07:21] LABS: CREATININE 2.1 mg/dl (0.61-1.24)
[2016-05-14 07:22] LABS: CALCIUM 9.2 mg/dl (8.4-10.2)
[2016-05-14] MEDS: DOCUSATE SODIUM 100 MG CAP PO SCH ×2 (09:00→22:20)
[2016-05-14] MEDS ORDERED: SODIUM BICARBONATE (IV ADD) 100 MEQ in DEXTROSE 5% 900 ML IV SCH ×2 (09:29→09:32)
[2016-05-14] MEDS ORDERED: VANCOMYCIN 1 GM (PMX) 250 ML IVPB SCH ×2 (09:30→10:00)
[2016-05-14] MEDS ORDERED: VANCOMYCIN IV PER PHARMACY XX SCH ×2 (09:30→10:00)
[2016-05-14] MEDS ORDERED: LIDOCAINE 1% (MDV) 20 ML INJ SC SCH ×2 (09:30→10:00)
[2016-05-14] MEDS: GABAPENTIN (50 MG/ML PO SYG) GTB SCH ×3 (09:42→21:00)
[2016-05-14] MEDS: CITRIC ACID/NA CITRATE 30 ML CUP PO SCH ×3 (09:43→22:20)
[2016-05-14] MEDS: CEFEPIME 1GM/50 ML (PMX) 50 ML IVPB SCH ×2 (09:43→22:19)
[2016-05-14] MEDS: DOXYCYCLINE 100 MG TAB PO SCH ×2 (09:45→22:20)
[2016-05-14] MEDS: ENOXAPARIN 30 MG/0.3 ML SYG SC SCH (09:48)
[2016-05-14] MEDS ORDERED: SILVER NITRATE SWAB TOP SCH (10:00)
--- NOTE | 2016-05-14 12:11 | PN ---
Date/Time of Note Date/Time of Note DATE: 05/14/16 TIME: 12:08 Assessment/Plan VTE Prophylaxis VTE Prophylaxis Intervention: other Lines/Catheters IV [facility]ter Type (from [facility]): PICC Line Assessment/Plan Assessment/Plan 1. Polymicrobial Urinary tract infection. Continue antibiotics per ID. Dr. Maciel is following patient in infection disease consultation. 2. Acute kidney injury on top of chronic kidney disease. Status post right nephrectomy. Left nephrolithiasis and renal cyst. Dr. Barker is following in nephrology consultation. Continue to monitor BUN and creatinine. 3. Ventilator-dependent respiratory failure with tracheostomy. is following patient in pulmonary consultation. Continue bronchodilators and ventilatory support. 4. Multiple decubitus ulcers present on admission. Continue zinc sulfate, multivitamins and offloading and current wound care. 5. Cervical spine injury with paraplegia. 6. Bipolar disorder with psychosis. Continue patient on risperidone b.i.d. and Lexapro. 7. Iron deficiency anemia. Continue patient on iron supplements. 8. Neurogenic bladder with suprapubic catheter. 9. Dysphagia with PEG. Continue Lovenox for deep venous thrombosis prophylaxis and Protonix for peptic ulcer disease prophylaxis. Further recommendations based on clinical course. Plan of care discussed with Dr. Barreto. Subjective 24 Hr Interval Summary Free Text/Dictation NAD, no agitation at present, sitter at bed side- staff. Constitutional: requiring IVF Eyes: pain ENT: no complaints Respiratory: no complaints Cardiovascular: no complaints Gastrointestinal: no complaints Genitourinary: no complaints Musculoskeletal: no complaints Skin: no complaints Neurologic: no complaints Endocrine: no complaints Exam/Review of Systems Vital Signs Vitals Vital Signs Date Time Temp Pulse Resp B/P Pulse Ox O2 Delivery O2 Flow Rate FiO2 05/14/16 12:00 98.1 78 20 103/63 96 05/14/16 07:30 5.0 05/14/16 02:37 28 05/14/16 02:37 Aerosol Intake and Output 05/13/16 05/13/16 05/14/16 15:00 23:00 07:00 Intake Total 650 ml Output Total 1200 ml Balance -550 ml Exam Constitutional: alert, well developed Psych: no complaints Eyes: EOMI, PERRL ENMT: nl external ears & nose Respiratory: clear to auscultation Gastrointestinal: non-tender, soft Musculoskeletal: muscle weakness Extremities: normal pulses Neurological: other (alert/awake, follows sipmle commands) Results Result Diagram: 05/13/16 0545 05/14/16 0550 Results 24 hrs Laboratory Tests Test 05/14/16 05:50 Sodium Level 145 H Potassium Level 5.3 H Chloride Level 106 Carbon Dioxide Level 24 Anion Gap 20 H Blood Urea Nitrogen 72 H Creatinine 2.10 H Glucose Level 87 Calcium Level 9.2 Medications Medications Current Medications Enoxaparin Sodium (Lovenox) 30 mg DAILY SC Last administered on 05/14/16 09:48 ; Admin Dose 30 MG; Start 05/04/16 at 09:00 Pantoprazole 40 mg 40 mg DAILY@06 PO Last administered on 05/14/16 06:20; Admin Dose 40 MG; Start 05/04/16 at 06:00 Cefepime HCl (Maxipime 1gm/50 ml (Pmx)) 50 ml @ 100 mls/hr Q12 IVPB Last administered on 05/14/16 09:43; Admin Dose 100 MLS/HR; Start 05/03/16 at 23:00; Stop 05/16/16 at 06:00 Hydromorphone HCl (Dilaudid) 1 mg Q4 PRN IV SEVERE PAIN LEVEL 7-10 Last administered on 05/14/16 10:27; Admin Dose 1 MG; Start 05/03/16 at 18:30 Citric Acid/ Sodium Citrate (Bicitra) 30 ml TID PO Last administered on 09:43; Admin Dose 30 ML; Start 05/04/16 at 13:00 Zolpidem Tartrate (Ambien) 5 mg HS PRN PO INSOMNIA Last administered on 20:46; Admin Dose 5 MG; Start 05/05/16 at 20:30 IV Flush (NS 10 ml) 10 ml PRN PRN IV IV PROTOCOL; Start 05/06/16 at 12:30 Doxycycline Hyclate (Vibramycin) 100 mg BID PO Last administered on 05/14/16 09 :45; Admin Dose 100 MG; Start 05/06/16 at 21:00; Stop 05/16/16 at 06:00 Miscellaneous Information 1 ea NOTE XX ; Start 05/06/16 at 15:30 Glucose (Glutose) 15 gm Q15M PRN PO DECREASED GLUCOSE; Start 05/06/16 at 15:30 Glucose (Glutose) 22.5 gm Q15M PRN PO DECREASED GLUCOSE; Start 05/06/16 at 15: 30 Dextrose (D50w Syringe) 25 ml Q15M PRN IV DECREASED GLUCOSE; Start 05/06/16 at 15:30 Dextrose (D50w Syringe) 50 ml Q15M PRN IV DECREASED GLUCOSE; Start 05/06/16 at 15:30 Glucagon (Glucagen) 1 mg Q15M PRN IM DECREASED GLUCOSE; Start 05/06/16 at 15:30 Glucose (Glutose) 15 gm Q15M PRN BUCCAL DECREASED GLUCOSE; Start 05/06/16 at 15 :30 Gabapentin (Neurontin Liquid) 100 mg TID GTB Last administered on 05/14/16 09: 42; Admin Dose 100 MG; Start 05/07/16 at 22:00 Polyethylene Glycol (Miralax) 17 gm DAILY PRN PO CONSTIPATION; Start 05/10/16 at 14:00 Docusate Sodium (Colace) 100 mg BID PO Last administered on 05/13/16 09:18; Admin Dose 100 MG; Start 05/10/16 at 14:00 Acetaminophen (Tylenol Tab) 650 mg Q6H PRN PO PAIN AND OR ELEVATED TEMP; Start 05/12/16 at 15:00 Silver Nitrate (Silver Nitrate Swabs) 1 stick Q7D TOP ; Start 05/14/16 at 09:30 NAE VELAZCO May 14, 2016 12:11
[2016-05-14] MEDS ORDERED: NA POLYST SULFON 15 GM/60 ML BTL PO ONE (12:30)
[2016-05-14] MEDS ORDERED: GABAPENTIN (50 MG/ML PO SYG) GTB SCH ×2 (13:00)
[2016-05-14] MEDS: ALBUTEROL/IPRATROPIUM (NEB) 3 ML AMP HHN PRN (20:41)
--- NOTE | 2016-05-14 21:56 | CONS ---
Date/Time of Note Date/Time of Note DATE: 05/14/16 TIME: 21:54 Assessment/Plan Assessment/Plan Additional Assessment/Plan 1. Acute hypernatremia, likely secondary to large free water deficits. 2. Possible history of chronic kidney disease secondary to multiple medical problems. 3. History of a previous cardiac arrest, had a G-tube and tracheostomy in place. 4. History of coronary artery disease, status post coronary artery bypass graft. 5. History of previous aortic valve replacement, bioprosthetic valve 6. Currently the patient has been admitted for sepsis secondary to healthcare- associated pneumonia and urinary tract infection. The blood cultures grew Staph bacteremia, likely a contaminant. The patient has methicillin-resistant Staphylococcus aureus colonization. 7. hypokalemia PLAN: K high, Na went up, Cr bumped to 2.1 kayexalate 30 gram POx 1 given today AM will give D5W at 70 cc/hr x 2 liter then reassess labs in AM will follow up Consultation Date/Type/Reason Admit Date/Time Initial Consult Date 05/03/2016 Type of Consultation: NEPHROLOGY Referring Provider: JOSÉ ANTONIO MIRZA MD 24 HR Interval Summary Free Text/Dictation K high, Na went up, Cr bumped to 2.1 Exam/Review of Systems Vital Signs Vitals Vital Signs Date Time Temp Pulse Resp B/P Pulse Ox O2 Delivery O2 Flow Rate FiO2 05/14/16 20:47 86 20 96 5.0 28 05/14/16 20:00 97.9 111/77 05/14/16 02:37 Aerosol Intake and Output 05/13/16 05/13/16 05/14/16 15:00 23:00 07:00 Intake Total 650 ml Output Total 1200 ml Balance -550 ml Results Result Diagram: 05/13/16 0545 05/14/16 0550 Results 24 hrs Laboratory Tests Test 05/14/16 05:50 Sodium Level 145 H Potassium Level 5.3 H Chloride Level 106 Carbon Dioxide Level 24 Anion Gap 20 H Blood Urea Nitrogen 72 H Creatinine 2.10 H Glucose Level 87 Calcium Level 9.2 Medications Medications Current Medications Enoxaparin Sodium (Lovenox) 30 mg DAILY SC Last administered on 05/14/16t 09:48 ; Admin Dose 30 MG; Start 05/04/16 at 09:00 Pantoprazole 40 mg 40 mg DAILY@06 PO Last administered on 05/14/16 06:20; Admin Dose 40 MG; Start 05/04/16 at 06:00 Cefepime HCl (Maxipime 1gm/50 ml (Pmx)) 50 ml @ 100 mls/hr Q12 IVPB Last administered on 05/14/16 09:43; Admin Dose 100 MLS/HR; Start 05/03/16 at 23:00; Stop 05/16/16 at 06:00 Hydromorphone HCl (Dilaudid) 1 mg Q4 PRN IV SEVERE PAIN LEVEL 7-10 Last administered on 05/14/16 20:02; Admin Dose 1 MG; Start 05/03/16 at 18:30 Citric Acid/ Sodium Citrate (Bicitra) 30 ml TID PO Last administered on 09:43; Admin Dose 30 ML; Start 05/04/16 at 13:00 Zolpidem Tartrate (Ambien) 5 mg HS PRN PO INSOMNIA Last administered on 20:46; Admin Dose 5 MG; Start 05/05/16 at 20:30 IV Flush (NS 10 ml) 10 ml PRN PRN IV IV PROTOCOL; Start 05/06/16 at 12:30 Doxycycline Hyclate (Vibramycin) 100 mg BID PO Last administered on 05/14/16 09 :45; Admin Dose 100 MG; Start 05/06/16 at 21:00; Stop 05/16/16 at 06:00 Miscellaneous Information 1 ea NOTE XX ; Start 05/06/16 at 15:30 Glucose (Glutose) 15 gm Q15M PRN PO DECREASED GLUCOSE; Start 05/06/16 at 15:30 Glucose (Glutose) 22.5 gm Q15M PRN PO DECREASED GLUCOSE; Start 05/06/16 at 15: 30 Dextrose (D50w Syringe) 25 ml Q15M PRN IV DECREASED GLUCOSE; Start 05/06/16 at 15:30 Dextrose (D50w Syringe) 50 ml Q15M PRN IV DECREASED GLUCOSE; Start 05/06/16 at 15:30 Glucagon (Glucagen) 1 mg Q15M PRN IM DECREASED GLUCOSE; Start 05/06/16 at 15:30 Glucose (Glutose) 15 gm Q15M PRN BUCCAL DECREASED GLUCOSE; Start 05/06/16 at 15 :30 Gabapentin (Neurontin Liquid) 100 mg TID GTB Last administered on 05/14/16 09: 42; Admin Dose 100 MG; Start 05/07/16 at 22:00 Polyethylene Glycol (Miralax) 17 gm DAILY PRN PO CONSTIPATION; Start 05/10/16 at 14:00 Docusate Sodium (Colace) 100 mg BID PO Last administered on 05/13/16 09:18; Admin Dose 100 MG; Start 05/10/16 at 14:00 Acetaminophen (Tylenol Tab) 650 mg Q6H PRN PO PAIN AND OR ELEVATED TEMP; Start 05/12/16 at 15:00 Silver Nitrate (Silver Nitrate Swabs) 1 stick Q7D TOP ; Start 05/14/16 at 09:30 TIARA CISNEROS MD May 14, 2016 21:55
[2016-05-14] MEDS: DEXTROSE 5% 1,000 ML IV SCH (23:57)
[2016-05-15] VITALS: BP 122/85; RESP 18
[2016-05-15] MEDS: ZOLPIDEM 5 MG TAB PO PRN ×2 (00:22→21:19)
[2016-05-15] MEDS: HYDROmorphONE 1 MG/ML SYG IV PRN ×4 (05:16→21:14)
[2016-05-15] MEDS: PANTOPRAZOLE (EC) 40 MG TAB PO SCH (05:17)
[2016-05-15 06:25] LABS: ADD SCAN DIFF NO
[2016-05-15 06:41] LABS: BASOPHILS % 0.2 % (0.0-2.0); EOSINOPHILS # 0.2 10^3/ul (0.0-0.5); EOSINOPHILS % 3.3 % (0.0-7.0); HEMATOCRIT 30.2 % (42.0-52.0); HEMOGLOBIN 8.8 g/dl (14.0-18.0); LYMPHOCYTES # 0.7 10^3/ul (0.8-2.9); LYMPHOCYTES % 14.9 % (15.0-51.0); MEAN CORPUSCULAR HEMOGLOBIN 29.9 pg (29.0-33.0); MEAN CORPUSCULAR HGB CONC 29.1 g/dl (32.0-37.0); MEAN CORPUSCULAR VOLUME 102.7 fl (82.0-101.0); MEAN PLATELET VOLUME 12.5 fl (7.4-10.4); MONOCYTE # 0.5 10^3/ul (0.3-0.9); MONOCYTES % 10.7 % (0.0-11.0); NEUTROPHIL # 3.2 10^3/ul (1.6-7.5); NEUTROPHILS % 70.7 % (39.0-77.0); PLATELET COUNT 118 10^3/UL (140-415); RED BLOOD COUNT 2.94 10^6/ul (4.70-6.10); RED CELL DISTRIBUTION WIDTH 13.8 % (11.5-14.5); WHITE BLOOD COUNT 4.6 10^3/ul (4.8-10.8)
[2016-05-15 06:44] LABS: POTASSIUM 4.9 mmol/L (3.5-5.1)
[2016-05-15 06:47] LABS: CREATININE 1.78 mg/dl (0.61-1.24)
[2016-05-15 06:48] LABS: CALCIUM 8.7 mg/dl (8.4-10.2)
[2016-05-15 07:53] VITALS: BP 99/57; RESP 19
[2016-05-15] MEDS: DOCUSATE SODIUM 100 MG CAP PO SCH ×2 (09:00→21:10)
[2016-05-15] MEDS: GABAPENTIN (50 MG/ML PO SYG) GTB SCH ×3 (09:00→21:00)
[2016-05-15] MEDS: CITRIC ACID/NA CITRATE 30 ML CUP PO SCH ×3 (09:43→21:11)
[2016-05-15] MEDS: DOXYCYCLINE 100 MG TAB PO SCH ×2 (09:43→21:10)
[2016-05-15] MEDS: SILVER NITRATE SWAB TOP SCH (09:44)
[2016-05-15] MEDS: ENOXAPARIN 30 MG/0.3 ML SYG SC SCH (09:49)
[2016-05-15] MEDS: ACETAMINOPHEN 325 MG TAB PO PRN ×2 (12:12→19:59)
[2016-05-15] MEDS: CEFEPIME 1GM/50 ML (PMX) 50 ML IVPB SCH ×2 (12:12→23:31)
[2016-05-15] MEDS: DEXTROSE 5% 1,000 ML IV SCH (12:19)
--- NOTE | 2016-05-15 13:16 | PN ---
Date/Time of Note Date/Time of Note DATE: 05/15/16 TIME: 13:15 Assessment/Plan VTE Prophylaxis VTE Prophylaxis Intervention: LMWH Lines/Catheters IV [facility]ter Type (from [facility] PICC Line Urinary Cath still in place: Yes (Suprapubic) Assessment/Plan Assessment/Plan 1. Polymicrobial Urinary tract infection. Continue antibiotics per ID. Dr. Maciel is following patient in infection disease consultation. 2. Acute kidney injury on top of chronic kidney disease. Status post right nephrectomy. Left nephrolithiasis and renal cyst. Dr. Barker is following in nephrology consultation. Continue to monitor BUN and creatinine. 3. Ventilator-dependent respiratory failure with tracheostomy. is following patient in pulmonary consultation. Continue bronchodilators and ventilatory support. 4. Multiple decubitus ulcers present on admission. Continue zinc sulfate, multivitamins and offloading and current wound care. 5. Cervical spine injury with paraplegia. 6. Bipolar disorder with psychosis. Continue patient on risperidone b.i.d. and Lexapro. 7. Iron deficiency anemia. Continue patient on iron supplements. 8. Neurogenic bladder with suprapubic catheter. 9. Dysphagia with PEG. Continue Lovenox for deep venous thrombosis prophylaxis and Protonix for peptic ulcer disease prophylaxis. Further recommendations based on clinical course. Plan of care discussed with Dr. Barreto. Subjective 24 Hr Interval Summary Eyes: no complaints ENT: no complaints Respiratory: no complaints Cardiovascular: no complaints Gastrointestinal: no complaints Genitourinary: no complaints Musculoskeletal: no complaints Skin: no complaints Neurologic: no complaints Endocrine: no complaints Exam/Review of Systems Vital Signs Vitals Vital Signs Date Time Temp Pulse Resp B/P Pulse Ox O2 Delivery O2 Flow Rate FiO2 05/15/16 07:53 97.8 69 19 99/57 97 05/15/16 01:02 5.0 28 05/14/16 02:37 Aerosol Intake and Output 05/14/16 05/14/16 05/15/16 15:00 23:00 07:00 Intake Total 350 ml 300 ml Output Total 1500 ml 2000 ml Balance -1150 ml -1700 ml Exam Constitutional: alert Psych: nl mood/affect Eyes: EOMI, PERRL, nl sclera ENMT: nl external ears & nose Neck: non-tender Respiratory: clear to auscultation Cardiovascular: nl pulses Gastrointestinal: non-tender, soft Musculoskeletal: muscle weakness Extremities: normal pulses Lymph: nontender Results Result Diagram: 05/15/16 0530 05/15/16 0530 Results 24 hrs Laboratory Tests Test 05/15/16 05:30 White Blood Count 4.6 L Red Blood Count 2.94 L Hemoglobin 8.8 L Hematocrit 30.2 L Mean Corpuscular Volume 102.7 H Mean Corpuscular Hemoglobin 29.9 Mean Corpuscular Hemoglobin Concent 29.1 L Red Cell Distribution Width 13.8 Platelet Count 118 L Mean Platelet Volume 12.5 H Neutrophils % 70.7 Lymphocytes % 14.9 L Monocytes % 10.7 Eosinophils % 3.3 Basophils % 0.2 Nucleated Red Blood Cells % 0.0 Neutrophils # 3.2 Lymphocytes # 0.7 L Monocytes # 0.5 Eosinophils # 0.2 Basophils # 0.0 Nucleated Red Blood Cells # 0.0 Sodium Level 132 L Potassium Level 4.9 Chloride Level 98 Carbon Dioxide Level 20 L Anion Gap 19 H Blood Urea Nitrogen 63 H Creatinine 1.78 H Glucose Level 386 #H Calcium Level 8.7 Medications Medications Current Medications Enoxaparin Sodium (Lovenox) 30 mg DAILY SC Last administered on 05/15/16 09:49 ; Admin Dose 30 MG; Start 05/04/16 at 09:00 Pantoprazole 40 mg 40 mg DAILY@06 PO Last administered on 05/15/16 05:17; Admin Dose 40 MG; Start 05/04/16 at 06:00 Cefepime HCl (Maxipime 1gm/50 ml (Pmx)) 50 ml @ 100 mls/hr Q12 IVPB Last administered on 05/15/16 12:12; Admin Dose 100 MLS/HR; Start 05/03/16 at 23:00; Stop 05/16/16 at 06:00 Hydromorphone HCl (Dilaudid) 1 mg Q4 PRN IV SEVERE PAIN LEVEL 7-10 Last administered on 05/15/16 13:11; Admin Dose 1 MG; Start 05/03/16 at 18:30 Citric Acid/ Sodium Citrate (Bicitra) 30 ml TID PO Last administered on 09:43; Admin Dose 30 ML; Start 05/04/16 at 13:00 Zolpidem Tartrate (Ambien) 5 mg HS PRN PO INSOMNIA Last administered on 00:22; Admin Dose 5 MG; Start 05/05/16 at 20:30 IV Flush (NS 10 ml) 10 ml PRN PRN IV IV PROTOCOL; Start 05/06/16 at 12:30 Doxycycline Hyclate (Vibramycin) 100 mg BID PO Last administered on 05/15/16 09 :43; Admin Dose 100 MG; Start 05/06/16 at 21:00; Stop 05/16/16 at 06:00 Miscellaneous Information 1 ea NOTE XX ; Start 05/06/16 at 15:30 Glucose (Glutose) 15 gm Q15M PRN PO DECREASED GLUCOSE; Start 05/06/16 at 15:30 Glucose (Glutose) 22.5 gm Q15M PRN PO DECREASED GLUCOSE; Start 05/06/16 at 15: 30 Dextrose (D50w Syringe) 25 ml Q15M PRN IV DECREASED GLUCOSE; Start 05/06/16 at 15:30 Dextrose (D50w Syringe) 50 ml Q15M PRN IV DECREASED GLUCOSE; Start 05/06/16 at 15:30 Glucagon (Glucagen) 1 mg Q15M PRN IM DECREASED GLUCOSE; Start 05/06/16 at 15:30 Glucose (Glutose) 15 gm Q15M PRN BUCCAL DECREASED GLUCOSE; Start 05/06/16 at 15 :30 Gabapentin (Neurontin Liquid) 100 mg TID GTB Last administered on 05/14/16 21: 00; Admin Dose 100 MG; Start 05/07/16 at 22:00 Polyethylene Glycol (Miralax) 17 gm DAILY PRN PO CONSTIPATION; Start 05/10/16 at 14:00 Docusate Sodium (Colace) 100 mg BID PO Last administered on 05/14/16 22:20; Admin Dose 100 MG; Start 05/10/16 at 14:00 Acetaminophen (Tylenol Tab) 650 mg Q6H PRN PO PAIN AND OR ELEVATED TEMP Last administered on 05/15/16 12:12; Admin Dose 650 MG; Start 05/12/16 at 15:00 Silver Nitrate 1 stick 1 stick Q7D TOP Last administered on 05/15/16 09:44; Admin Dose 1 STICK; Start 05/14/16 at 09:30 Dextrose (D5W) 1,000 ml @ 70 mls/hr [id number] IV Last administered on 4/9/17at 12:19; Admin Dose 70 MLS/HR; Start 05/14/16 at 22:00; Stop 05/16/16 at 02:34 NAE VELAZCO May 15, 2016 13:16
[2016-05-15 13:18] VITALS: BP 102/56; RESP 20
--- NOTE | 2016-05-15 17:00 | CONS ---
Date/Time of Note Date/Time of Note DATE: 05/15/16 TIME: 17:00 Assessment/Plan Assessment/Plan Chief Complaint/Hosp Course ID PROGRESS NOTE 24H INTERVAL SUMMARY CURRENT ABX: Doxycycline + Cefepime * Status markedly improved, downgraded & transferred to Med-Surg * SUBJECTIVE: Alert, feels good, no fevers * MICROBIOLOGY: Blood culture negative. Urine culture growing MRSA/GNR * INDWELLINGS: Trach, PEG and suprapubic catheter. * DIAGNOSTICS: Chest x-ray on admission revealed no evidence of acute cardiopulmonary disease. PHYSICAL EXAMINATION: GENERAL: A/A/O -> able to eat lunch with Trach in place HEENT: Head atraumatic, normocephalic. Sclerae anicteric. Buccal mucosa pink. NECK: Supple. Tracheostomy present. CHEST: Chest rise is symmetrical. Breath sounds diminished to the bases. HEART: S1, S2. ABDOMEN: Soft. Bowel tones present. EXTREMITIES: Wasted, contractured. ID ASSESSMENT 40 yo M w/PMHx Quadriplegia secondary to C-spine injury admit with: 1. s/p sepsis => s/p shock due to acute recurrent polymicrobial urinary tract infection. URINE CULTURE Final Organism 1 PSEUDOMONAS AERUGINOSA COLONY COUNT >100,000 CFU/ml Organism 2 METHICILLIN RESISTANT S.AUREUS COLONY COUNT >100,000 CFU/ml . MULTI DRUG RESISTANT ORGANISM Organism 3 PROTEUS MIRABILIS COLONY COUNT >100,000 CFU/ml 2. Neurogenic bladder, with a suprapubic catheter. 3. History of right nephrectomy. 4. Acute on chronic kidney disease. (-)MRSA Nares CURRENT ABX: Cefepime + Doxy ID PLAN: Improved w/current ABX => ABX last day tomorrow, then DC -- DC Planning - back to SNF OFF ABX . Problems: Consultation Date/Type/Reason Admit Date/Time May 04, 2016 at 12:27 Initial Consult Date 05/05/16 Type of Consultation: ID Referring Provider: JOSÉ ANTONIO MIRZA MD Exam/Review of Systems Vital Signs Vitals Vital Signs Date Time Temp Pulse Resp B/P Pulse Ox O2 Delivery O2 Flow Rate FiO2 05/15/16 13:18 98.0 87 20 102/56 98 05/15/16 07:40 5.0 28 05/14/16 02:37 Aerosol Intake and Output 05/14/16 05/14/16 05/15/16 15:00 23:00 07:00 Intake Total 350 ml 300 ml Output Total 1500 ml 2000 ml Balance -1150 ml -1700 ml Results Result Diagram: 05/15/16 0530 05/15/16 0530 Results 24 hrs Laboratory Tests Test 05/15/16 05:30 White Blood Count 4.6 L Red Blood Count 2.94 L Hemoglobin 8.8 L Hematocrit 30.2 L Mean Corpuscular Volume 102.7 H Mean Corpuscular Hemoglobin 29.9 Mean Corpuscular Hemoglobin Concent 29.1 L Red Cell Distribution Width 13.8 Platelet Count 118 L Mean Platelet Volume 12.5 H Neutrophils % 70.7 Lymphocytes % 14.9 L Monocytes % 10.7 Eosinophils % 3.3 Basophils % 0.2 Nucleated Red Blood Cells % 0.0 Neutrophils # 3.2 Lymphocytes # 0.7 L Monocytes # 0.5 Eosinophils # 0.2 Basophils # 0.0 Nucleated Red Blood Cells # 0.0 Sodium Level 132 L Potassium Level 4.9 Chloride Level 98 Carbon Dioxide Level 20 L Anion Gap 19 H Blood Urea Nitrogen 63 H Creatinine 1.78 H Glucose Level 386 #H Calcium Level 8.7 Medications Medications Current Medications Enoxaparin Sodium (Lovenox) 30 mg DAILY SC Last administered on 05/15/16 09:49 ; Admin Dose 30 MG; Start 05/04/16 at 09:00 Pantoprazole 40 mg 40 mg DAILY@06 PO Last administered on 05/15/16 05:17; Admin Dose 40 MG; Start 05/04/16 at 06:00 Cefepime HCl (Maxipime 1gm/50 ml (Pmx)) 50 ml @ 100 mls/hr Q12 IVPB Last administered on 05/15/16 12:12; Admin Dose 100 MLS/HR; Start 05/03/16 at 23:00; Stop 05/16/16 at 06:00 Hydromorphone HCl (Dilaudid) 1 mg Q4 PRN IV SEVERE PAIN LEVEL 7-10 Last administered on 05/15/16 13:11; Admin Dose 1 MG; Start 05/03/16 at 18:30 Citric Acid/ Sodium Citrate (Bicitra) 30 ml TID PO Last administered on 14:03; Admin Dose 30 ML; Start 05/04/16 at 13:00 Zolpidem Tartrate (Ambien) 5 mg HS PRN PO INSOMNIA Last administered on 00:22; Admin Dose 5 MG; Start 05/05/16 at 20:30 IV Flush (NS 10 ml) 10 ml PRN PRN IV IV PROTOCOL; Start 05/06/16 at 12:30 Doxycycline Hyclate (Vibramycin) 100 mg BID PO Last administered on 05/15/16 09 :43; Admin Dose 100 MG; Start 05/06/16 at 21:00; Stop 05/16/16 at 06:00 Miscellaneous Information 1 ea NOTE XX ; Start 05/06/16 at 15:30 Glucose (Glutose) 15 gm Q15M PRN PO DECREASED GLUCOSE; Start 05/06/16 at 15:30 Glucose (Glutose) 22.5 gm Q15M PRN PO DECREASED GLUCOSE; Start 05/06/16 at 15: 30 Dextrose (D50w Syringe) 25 ml Q15M PRN IV DECREASED GLUCOSE; Start 05/06/16 at 15:30 Dextrose (D50w Syringe) 50 ml Q15M PRN IV DECREASED GLUCOSE; Start 05/06/16 at 15:30 Glucagon (Glucagen) 1 mg Q15M PRN IM DECREASED GLUCOSE; Start 05/06/16 at 15:30 Glucose (Glutose) 15 gm Q15M PRN BUCCAL DECREASED GLUCOSE; Start 05/06/16 at 15 :30 Gabapentin (Neurontin Liquid) 100 mg TID GTB Last administered on 05/14/16 21: 00; Admin Dose 100 MG; Start 05/07/16 at 22:00 Polyethylene Glycol (Miralax) 17 gm DAILY PRN PO CONSTIPATION; Start 05/10/16 at 14:00 Docusate Sodium (Colace) 100 mg BID PO Last administered on 05/14/16 22:20; Admin Dose 100 MG; Start 05/10/16 at 14:00 Acetaminophen (Tylenol Tab) 650 mg Q6H PRN PO PAIN AND OR ELEVATED TEMP Last administered on 05/15/16 12:12; Admin Dose 650 MG; Start 05/12/16 at 15:00 Silver Nitrate 1 stick 1 stick Q7D TOP Last administered on 05/15/16 09:44; Admin Dose 1 STICK; Start 05/14/16 at 09:30 Dextrose (D5W) 1,000 ml @ 70 mls/hr [id number] IV Last administered on 05/15/16t 12:19; Admin Dose 70 MLS/HR; Start 05/14/16 at 22:00; Stop 05/16/16 at 02:34 KELSI CERDA NP May 15, 2016 17:00
--- NOTE | 2016-05-15 17:18 | CONS ---
Date/Time of Note Date/Time of Note DATE: 05/15/16 TIME: 17:15 Assessment/Plan Assessment/Plan Additional Assessment/Plan 1. Acute hypernatremia, likely secondary to large free water deficits. 2. Possible history of chronic kidney disease secondary to multiple medical problems. 3. History of a previous cardiac arrest, had a G-tube and tracheostomy in place. 4. History of coronary artery disease, status post coronary artery bypass graft. 5. History of previous aortic valve replacement, bioprosthetic valve 6. Currently the patient has been admitted for sepsis secondary to healthcare- associated pneumonia and urinary tract infection. The blood cultures grew Staph bacteremia, likely a contaminant. The patient has methicillin-resistant Staphylococcus aureus colonization. 7. hypokalemia PLAN: Cr improved to 1.78, Na improved to 132 K normal today after getting Kayexalate given yesterday currently getting D5W at 70 cc/hr x 2 liter total will follow up Consultation Date/Type/Reason Admit Date/Time May 04, 2016 at 12:27 Initial Consult Date 05/03/2016 Type of Consultation: NEPHROLOGY Referring Provider: JOSÉ ANTONIO MIRZA MD 24 HR Interval Summary Free Text/Dictation Cr improved to 1.78, Na improved to 132, BP stable, afebrile, Exam/Review of Systems Vital Signs Vitals Vital Signs Date Time Temp Pulse Resp B/P Pulse Ox O2 Delivery O2 Flow Rate FiO2 05/15/16 13:18 98.0 87 20 102/56 98 05/15/16 07:40 5.0 28 05/14/16 02:37 Aerosol Intake and Output 05/14/16 05/14/16 05/15/16 15:00 23:00 07:00 Intake Total 350 ml 300 ml Output Total 1500 ml 2000 ml Balance -1150 ml -1700 ml Exam GENERAL: This is a chronically ill-appearing, middle-aged white man, who is lying comfortably in bed. HEENT: Head atraumatic, normocephalic. Sclerae anicteric. Buccal mucosa pink. NECK: Supple. Tracheostomy present. CHEST: Chest rise is symmetrical. Breath sounds diminished to the bases. HEART: S1, S2. ABDOMEN: Soft. Bowel tones present. EXTREMITIES: Wasted, contractured. Results Result Diagram: 05/15/16 0530 05/15/16 0530 Results 24 hrs Laboratory Tests Test 05/15/16 05:30 White Blood Count 4.6 L Red Blood Count 2.94 L Hemoglobin 8.8 L Hematocrit 30.2 L Mean Corpuscular Volume 102.7 H Mean Corpuscular Hemoglobin 29.9 Mean Corpuscular Hemoglobin Concent 29.1 L Red Cell Distribution Width 13.8 Platelet Count 118 L Mean Platelet Volume 12.5 H Neutrophils % 70.7 Lymphocytes % 14.9 L Monocytes % 10.7 Eosinophils % 3.3 Basophils % 0.2 Nucleated Red Blood Cells % 0.0 Neutrophils # 3.2 Lymphocytes # 0.7 L Monocytes # 0.5 Eosinophils # 0.2 Basophils # 0.0 Nucleated Red Blood Cells # 0.0 Sodium Level 132 L Potassium Level 4.9 Chloride Level 98 Carbon Dioxide Level 20 L Anion Gap 19 H Blood Urea Nitrogen 63 H Creatinine 1.78 H Glucose Level 386 #H Calcium Level 8.7 Medications Medications Current Medications Enoxaparin Sodium (Lovenox) 30 mg DAILY SC Last administered on 05/15/16 09:49 ; Admin Dose 30 MG; Start 05/04/16 at 09:00 Pantoprazole 40 mg 40 mg DAILY@06 PO Last administered on 05/15/16 05:17; Admin Dose 40 MG; Start 05/04/16 at 06:00 Cefepime HCl (Maxipime 1gm/50 ml (Pmx)) 50 ml @ 100 mls/hr Q12 IVPB Last administered on 05/15/16 12:12; Admin Dose 100 MLS/HR; Start 05/03/16 at 23:00; Stop 05/16/16 at 06:00 Hydromorphone HCl (Dilaudid) 1 mg Q4 PRN IV SEVERE PAIN LEVEL 7-10 Last administered on 05/15/16 17:09; Admin Dose 1 MG; Start 05/03/16 at 18:30 Citric Acid/ Sodium Citrate (Bicitra) 30 ml TID PO Last administered on 14:03; Admin Dose 30 ML; Start 05/04/16 at 13:00 Zolpidem Tartrate (Ambien) 5 mg HS PRN PO INSOMNIA Last administered on 00:22; Admin Dose 5 MG; Start 05/05/16 at 20:30 IV Flush (NS 10 ml) 10 ml PRN PRN IV IV PROTOCOL; Start 05/06/16 at 12:30 Doxycycline Hyclate (Vibramycin) 100 mg BID PO Last administered on 05/15/16 09 :43; Admin Dose 100 MG; Start 05/06/16 at 21:00; Stop 05/16/16 at 06:00 Miscellaneous Information 1 ea NOTE XX ; Start 05/06/16 at 15:30 Glucose (Glutose) 15 gm Q15M PRN PO DECREASED GLUCOSE; Start 05/06/16 at 15:30 Glucose (Glutose) 22.5 gm Q15M PRN PO DECREASED GLUCOSE; Start 05/06/16 at 15: 30 Dextrose (D50w Syringe) 25 ml Q15M PRN IV DECREASED GLUCOSE; Start 05/06/16 at 15:30 Dextrose (D50w Syringe) 50 ml Q15M PRN IV DECREASED GLUCOSE; Start 05/06/16 at 15:30 Glucagon (Glucagen) 1 mg Q15M PRN IM DECREASED GLUCOSE; Start 05/06/16 at 15:30 Glucose (Glutose) 15 gm Q15M PRN BUCCAL DECREASED GLUCOSE; Start 05/06/16 at 15 :30 Gabapentin (Neurontin Liquid) 100 mg TID GTB Last administered on 05/14/16 21: 00; Admin Dose 100 MG; Start 05/07/16 at 22:00 Polyethylene Glycol (Miralax) 17 gm DAILY PRN PO CONSTIPATION; Start 05/10/16 at 14:00 Docusate Sodium (Colace) 100 mg BID PO Last administered on 05/14/16 22:20; Admin Dose 100 MG; Start 05/10/16 at 14:00 Acetaminophen (Tylenol Tab) 650 mg Q6H PRN PO PAIN AND OR ELEVATED TEMP Last administered on 05/15/16 12:12; Admin Dose 650 MG; Start 05/12/16 at 15:00 Silver Nitrate 1 stick 1 stick Q7D TOP Last administered on 05/15/16 09:44; Admin Dose 1 STICK; Start 05/14/16 at 09:30 Dextrose (D5W) 1,000 ml @ 70 mls/hr [id number] IV Last administered on 05/15/16 12:19; Admin Dose 70 MLS/HR; Start 05/14/16 at 22:00; Stop 05/16/16 at 02:34 TIARA CISNEROS MD May 15, 2016 17:18
[2016-05-15 19:53] VITALS: BP 130/85; RESP 20
[2016-05-16] MEDS: HYDROmorphONE 1 MG/ML SYG IV PRN ×6 (01:13→20:57)
[2016-05-16] MEDS: PANTOPRAZOLE (EC) 40 MG TAB PO SCH (05:10)
[2016-05-16 08:14] VITALS: BP 138/85; RESP 20
[2016-05-16] MEDS: CITRIC ACID/NA CITRATE 30 ML CUP PO SCH ×3 (08:45→20:55)
[2016-05-16] MEDS: DOCUSATE SODIUM 100 MG CAP PO SCH ×2 (08:46→20:56)
[2016-05-16] MEDS: ENOXAPARIN 30 MG/0.3 ML SYG SC SCH (08:57)
[2016-05-16] MEDS: GABAPENTIN (50 MG/ML PO SYG) GTB SCH ×3 (09:00→20:56)
--- NOTE | 2016-05-16 11:43 | CONS ---
Date/Time of Note Date/Time of Note DATE: 05/16/16 TIME: 11:39 Assessment/Plan Assessment/Plan Additional Assessment/Plan Acute kidney injury Hypotension, improved Sepsis Respiratory Failure Preserved EF on echocardiogram March 02, 2016 History of intermittent Mobitz I Chronic pain syndrome -Blood pressure trend overall remains stable. IV fluids as per our nephrology colleagues. No new cardiac orders at the current time Consultation Date/Type/Reason Admit Date/Time May 04, 2016 at 12:27 Initial Consult Date 05/05/16 Type of Consultation: cv Referring Provider: JOSÉ ANTONIO MIRZA MD 24 HR Interval Summary Free Text/Dictation Patient seen and examined. Denies chest pain, palpitations and shortness of breath Exam/Review of Systems Vital Signs Vitals Vital Signs Date Time Temp Pulse Resp B/P Pulse Ox O2 Delivery O2 Flow Rate FiO2 05/16/16 08:22 96 5.0 28 05/16/16 08:14 97.8 70 20 138/85 05/16/16 04:40 Aerosol Intake and Output 05/15/16 05/15/16 05/16/16 15:00 23:00 07:00 Intake Total 930 ml 1180 ml Output Total 1300 ml 4000 ml Balance -370 ml -2820 ml Exam No apparent distress Constitutional: alert, oriented Head: normocephalic Neck: other (Tracheostomy) Respiratory: other (Coarse breath sounds bilaterally, no wheezing) Cardiovascular: other (S1-S2 heard), regular rate and rhythm Gastrointestinal: bowel sounds, non-tender, other (No guarding), soft Extremities: other (No edema) Results Result Diagram: 05/15/1652905/15/1630 Medications Medications Current Medications Enoxaparin Sodium (Lovenox) 30 mg DAILY SC Last administered on 05/16/16 08:57 ; Admin Dose 30 MG; Start 05/04/16 at 09:00 Pantoprazole (Protonix Tab) 40 mg DAILY@06 PO Last administered on 05/16/16 05 :10; Admin Dose 40 MG; Start 05/04/16 at 06:00 Hydromorphone HCl (Dilaudid) 1 mg Q4 PRN IV SEVERE PAIN LEVEL 7-10 Last administered on 05/16/16 08:47; Admin Dose 1 MG; Start 05/03/16 at 18:30 Citric Acid/ Sodium Citrate (Bicitra) 30 ml TID PO Last administered on 08:45; Admin Dose 30 ML; Start 05/04/16 at 13:00 Zolpidem Tartrate (Ambien) 5 mg HS PRN PO INSOMNIA Last administered on 21:19; Admin Dose 5 MG; Start 05/05/16 at 20:30 IV Flush (NS 10 ml) 10 ml PRN PRN IV IV PROTOCOL; Start 05/06/16 at 12:30 Miscellaneous Information 1 ea NOTE XX ; Start 05/06/16 at 15:30 Glucose (Glutose) 15 gm Q15M PRN PO DECREASED GLUCOSE; Start 05/06/16 at 15:30 Glucose (Glutose) 22.5 gm Q15M PRN PO DECREASED GLUCOSE; Start 05/06/16 at 15: 30 Dextrose (D50w Syringe) 25 ml Q15M PRN IV DECREASED GLUCOSE; Start 05/06/16 at 15:30 Dextrose (D50w Syringe) 50 ml Q15M PRN IV DECREASED GLUCOSE; Start 05/06/16 at 15:30 Glucagon (Glucagen) 1 mg Q15M PRN IM DECREASED GLUCOSE; Start 05/06/16 at 15:30 Glucose (Glutose) 15 gm Q15M PRN BUCCAL DECREASED GLUCOSE; Start 05/06/16 at 15 :30 Gabapentin (Neurontin Liquid) 100 mg TID GTB Last administered on 05/16/16 09: 00; Admin Dose 100 MG; Start 05/07/16 at 22:00 Polyethylene Glycol (Miralax) 17 gm DAILY PRN PO CONSTIPATION; Start 05/10/16 at 14:00 Docusate Sodium (Colace) 100 mg BID PO Last administered on 05/15/16 21:10; Admin Dose 100 MG; Start 05/10/16 at 14:00 Acetaminophen (Tylenol Tab) 650 mg Q6H PRN PO PAIN AND OR ELEVATED TEMP Last administered on 05/15/16 19:59; Admin Dose 650 MG; Start 05/12/16 at 15:00 Silver Nitrate (Silver Nitrate Swabs) 1 stick Q7D TOP Last administered on 09:44; Admin Dose 1 STICK; Start 05/14/16 at 09:30 Deandre Chavez DO May 16, 2016 11:43
[2016-05-16 15:02] LABS: POTASSIUM 4.9 mmol/L (3.5-5.1)
[2016-05-16 15:05] LABS: CREATININE 2.03 mg/dl (0.61-1.24)
[2016-05-16 15:06] LABS: CALCIUM 9.6 mg/dl (8.4-10.2)
--- NOTE | 2016-05-16 19:20 | PN ---
Date/Time of Note Date/Time of Note DATE: 05/16/16 TIME: 19:18 Assessment/Plan VTE Prophylaxis VTE Prophylaxis Intervention: SCD's Lines/Catheters IV Catheter Type (from [facility]): PICC Line Urinary Cath still in place: Yes Assessment/Plan Assessment/Plan 1. Polymicrobial Urinary tract infection. Continue antibiotics per ID. Dr. Maciel is following patient in infection disease consultation. 2. Acute kidney injury on top of chronic kidney disease. Status post right nephrectomy. Left nephrolithiasis and renal cyst. Dr. Barker is following in nephrology consultation. Continue to monitor BUN and creatinine. 3. Ventilator-dependent respiratory failure with tracheostomy. is following patient in pulmonary consultation. Continue bronchodilators and ventilatory support. 4. Multiple decubitus ulcers present on admission. Continue zinc sulfate, multivitamins and offloading and current wound care. 5. Cervical spine injury with paraplegia. 6. Bipolar disorder with psychosis. Continue patient on risperidone b.i.d. and Lexapro. 7. Iron deficiency anemia. Continue patient on iron supplements. 8. Neurogenic bladder with suprapubic catheter. 9. Dysphagia with PEG. Continue Lovenox for deep venous thrombosis prophylaxis and Protonix for peptic ulcer disease prophylaxis. Further recommendations based on clinical course. Plan of care discussed with Dr. Barreto. Subjective 24 Hr Interval Summary Free Text/Dictation nad, BS critical this morning, BMP repeated- BS 111. dw staff. Exam/Review of Systems Vital Signs Vitals Vital Signs Date Time Temp Pulse Resp B/P Pulse Ox O2 Delivery O2 Flow Rate FiO2 05/16/16 14:34 8.0 05/16/16 08:22 96 28 05/16/16 08:14 97.8 70 20 138/85 05/16/16 04:40 Aerosol Intake and Output 05/15/16 05/15/16 05/16/16 15:00 23:00 07:00 Intake Total 930 ml 1180 ml Output Total 1300 ml 4000 ml Balance -370 ml -2820 ml Exam Constitutional: alert Psych: nl mood/affect Eyes: EOMI, PERRL, nl sclera ENMT: nl external ears & nose Respiratory: diminished breath sounds Cardiovascular: nl pulses Gastrointestinal: non-tender, soft Musculoskeletal: muscle weakness Extremities: normal pulses Neurological: other Skin: other Lymph: nontender Results Result Diagram: 05/15/16 0530 05/16/16 1420 Results 24 hrs Laboratory Tests Test 05/16/16 14:20 Sodium Level 144 Potassium Level 4.9 Chloride Level 104 Carbon Dioxide Level 25 Anion Gap 20 H Blood Urea Nitrogen 63 H Creatinine 2.03 H Glucose Level 111 # Calcium Level 9.6 Medications Medications Current Medications Enoxaparin Sodium (Lovenox) 30 mg DAILY SC Last administered on 05/16/16 08:57 ; Admin Dose 30 MG; Start 05/04/16 at 09:00 Pantoprazole (Protonix Tab) 40 mg DAILY@06 PO Last administered on 05/16/16 05 :10; Admin Dose 40 MG; Start 05/04/16 at 06:00 Hydromorphone HCl (Dilaudid) 1 mg Q4 PRN IV SEVERE PAIN LEVEL 7-10 Last administered on 05/16/16 17:08; Admin Dose 1 MG; Start 05/03/16 at 18:30 Citric Acid/ Sodium Citrate (Bicitra) 30 ml TID PO Last administered on 12:52; Admin Dose 30 ML; Start 05/04/16 at 13:00 Zolpidem Tartrate (Ambien) 5 mg HS PRN PO INSOMNIA Last administered on 21:19; Admin Dose 5 MG; Start 05/05/16 at 20:30 IV Flush (NS 10 ml) 10 ml PRN PRN IV IV PROTOCOL; Start 05/06/16 at 12:30 Miscellaneous Information 1 ea NOTE XX ; Start 05/06/16 at 15:30 Glucose (Glutose) 15 gm Q15M PRN PO DECREASED GLUCOSE; Start 05/06/16 at 15:30 Glucose (Glutose) 22.5 gm Q15M PRN PO DECREASED GLUCOSE; Start 05/06/16 at 15: 30 Dextrose (D50w Syringe) 25 ml Q15M PRN IV DECREASED GLUCOSE; Start 05/06/16 at 15:30 Dextrose (D50w Syringe) 50 ml Q15M PRN IV DECREASED GLUCOSE; Start 05/06/16 at 15:30 Glucagon (Glucagen) 1 mg Q15M PRN IM DECREASED GLUCOSE; Start 05/06/16 at 15:30 Glucose (Glutose) 15 gm Q15M PRN BUCCAL DECREASED GLUCOSE; Start 05/06/16 at 15 :30 Gabapentin (Neurontin Liquid) 100 mg TID GTB Last administered on 05/16/16 12: 52; Admin Dose 100 MG; Start 05/07/16 at 22:00 Polyethylene Glycol (Miralax) 17 gm DAILY PRN PO CONSTIPATION; Start 05/10/16 at 14:00 Docusate Sodium (Colace) 100 mg BID PO Last administered on 05/15/16 21:10; Admin Dose 100 MG; Start 05/10/16 at 14:00 Acetaminophen (Tylenol Tab) 650 mg Q6H PRN PO PAIN AND OR ELEVATED TEMP Last administered on 05/15/16 19:59; Admin Dose 650 MG; Start 05/12/16 at 15:00 Silver Nitrate (Silver Nitrate Swabs) 1 stick Q7D TOP Last administered on 09:44; Admin Dose 1 STICK; Start 05/14/16 at 09:30 NAE VELAZCO May 16, 2016 19:20
[2016-05-16 19:28] VITALS: BP 110/69; RESP 18
[2016-05-16] MEDS: ALBUTEROL/IPRATROPIUM (NEB) 3 ML AMP HHN PRN (20:39)
[2016-05-16] MEDS: ZOLPIDEM 5 MG TAB PO PRN (21:02)
--- NOTE | 2016-05-16 23:18 | CONS ---
Date/Time of Note Date/Time of Note DATE: 05/16/16 TIME: 23:16 Assessment/Plan Assessment/Plan Additional Assessment/Plan 1. Acute hypernatremia, likely secondary to large free water deficits. 2. BELINDA due to ATN due to sepsis 3. History of a previous cardiac arrest, had a G-tube and tracheostomy in place. 4. History of coronary artery disease, status post coronary artery bypass graft. 5. History of previous aortic valve replacement, bioprosthetic valve 6. Currently the patient has been admitted for sepsis secondary to healthcare- associated pneumonia and urinary tract infection. The blood cultures grew Staph bacteremia, likely a contaminant. The patient has methicillin-resistant Staphylococcus aureus colonization. PLAN: Cr 2.03, Na normal today, expecting Cr to improve pt received D5 W x 2 liter K normal will follow up Consultation Date/Type/Reason Admit Date/Time Initial Consult Date 05/03/2016 Type of Consultation: NEPHROLOGY Referring Provider: JOSÉ ANTONIO MIRZA MD 24 HR Interval Summary Free Text/Dictation BUN 63, Cr 2.03, Na normal today, no acute events Exam/Review of Systems Vital Signs Vitals Vital Signs Date Time Temp Pulse Resp B/P Pulse Ox O2 Delivery O2 Flow Rate FiO2 05/16/16 20:42 96 19 96 Aerosol 5.0 28 05/16/16 19:28 98.2 110/69 Intake and Output 05/15/16 05/15/16 05/16/16 15:00 23:00 07:00 Intake Total 930 ml 1180 ml Output Total 1300 ml 4000 ml Balance -370 ml -2820 ml Results Result Diagram: 05/15/16 0530 05/16/16 1420 Results 24 hrs Laboratory Tests Test 05/16/16 14:20 Sodium Level 144 Potassium Level 4.9 Chloride Level 104 Carbon Dioxide Level 25 Anion Gap 20 H Blood Urea Nitrogen 63 H Creatinine 2.03 H Glucose Level 111 # Calcium Level 9.6 Medications Medications Current Medications Enoxaparin Sodium (Lovenox) 30 mg DAILY SC Last administered on 05/16/16 08:57 ; Admin Dose 30 MG; Start 05/04/16 at 09:00 Pantoprazole (Protonix Tab) 40 mg DAILY@06 PO Last administered on 05/16/16 05 :10; Admin Dose 40 MG; Start 05/04/16 at 06:00 Hydromorphone HCl (Dilaudid) 1 mg Q4 PRN IV SEVERE PAIN LEVEL 7-10 Last administered on 05/16/16 20:57; Admin Dose 1 MG; Start 05/03/16 at 18:30 Citric Acid/ Sodium Citrate (Bicitra) 30 ml TID PO Last administered on 20:55; Admin Dose 30 ML; Start 05/04/16 at 13:00 Zolpidem Tartrate (Ambien) 5 mg HS PRN PO INSOMNIA Last administered on 21:02; Admin Dose 5 MG; Start 05/05/16 at 20:30 IV Flush (NS 10 ml) 10 ml PRN PRN IV IV PROTOCOL; Start 05/06/16 at 12:30 Miscellaneous Information 1 ea NOTE XX ; Start 05/06/16 at 15:30 Glucose (Glutose) 15 gm Q15M PRN PO DECREASED GLUCOSE; Start 05/06/16 at 15:30 Glucose (Glutose) 22.5 gm Q15M PRN PO DECREASED GLUCOSE; Start 05/06/16 at 15: 30 Dextrose (D50w Syringe) 25 ml Q15M PRN IV DECREASED GLUCOSE; Start 05/06/16 at 15:30 Dextrose (D50w Syringe) 50 ml Q15M PRN IV DECREASED GLUCOSE; Start 05/06/16 at 15:30 Glucagon (Glucagen) 1 mg Q15M PRN IM DECREASED GLUCOSE; Start 05/06/16 at 15:30 Glucose (Glutose) 15 gm Q15M PRN BUCCAL DECREASED GLUCOSE; Start 05/06/16 at 15 :30 Gabapentin (Neurontin Liquid) 100 mg TID GTB Last administered on 05/16/16 20: 56; Admin Dose 100 MG; Start 05/07/16 at 22:00 Polyethylene Glycol (Miralax) 17 gm DAILY PRN PO CONSTIPATION; Start 05/10/16 at 14:00 Docusate Sodium (Colace) 100 mg BID PO Last administered on 05/16/16 20:56; Admin Dose 100 MG; Start 05/10/16 at 14:00 Acetaminophen (Tylenol Tab) 650 mg Q6H PRN PO PAIN AND OR ELEVATED TEMP Last administered on 05/15/16 19:59; Admin Dose 650 MG; Start 05/12/16 at 15:00 Silver Nitrate (Silver Nitrate Swabs) 1 stick Q7D TOP Last administered on t 09:44; Admin Dose 1 STICK; Start 05/14/16 at 09:30 TIARA CISNEROS MD May 16, 2016 23:18
[2016-05-17] MEDS: HYDROmorphONE 1 MG/ML SYG IV PRN ×6 (00:59→21:12)
[2016-05-17] MEDS: PANTOPRAZOLE (EC) 40 MG TAB PO SCH (05:03)
[2016-05-17 05:40] LABS: ADD SCAN DIFF NO
[2016-05-17 05:44] LABS: BASOPHILS % 0.2 % (0.0-2.0); EOSINOPHILS # 0.1 10^3/ul (0.0-0.5); EOSINOPHILS % 1.9 % (0.0-7.0); HEMATOCRIT 31.4 % (42.0-52.0); HEMOGLOBIN 9.5 g/dl (14.0-18.0); LYMPHOCYTES # 0.8 10^3/ul (0.8-2.9); LYMPHOCYTES % 15.7 % (15.0-51.0); MEAN CORPUSCULAR HEMOGLOBIN 30.4 pg (29.0-33.0); MEAN CORPUSCULAR HGB CONC 30.3 g/dl (32.0-37.0); MEAN CORPUSCULAR VOLUME 100.6 fl (82.0-101.0); MEAN PLATELET VOLUME 12.1 fl (7.4-10.4); MONOCYTE # 0.6 10^3/ul (0.3-0.9); MONOCYTES % 12.2 % (0.0-11.0); NEUTROPHIL # 3.6 10^3/ul (1.6-7.5); NEUTROPHILS % 69.6 % (39.0-77.0); PLATELET COUNT 149 10^3/UL (140-415); RED BLOOD COUNT 3.12 10^6/ul (4.70-6.10); RED CELL DISTRIBUTION WIDTH 13.9 % (11.5-14.5); WHITE BLOOD COUNT 5.2 10^3/ul (4.8-10.8)
[2016-05-17 06:01] LABS: CREATININE 2.25 mg/dl (0.61-1.24); POTASSIUM 5.3 mmol/L (3.5-5.1)
[2016-05-17 06:02] LABS: CALCIUM 9.3 mg/dl (8.4-10.2)
--- NOTE | 2016-05-17 07:34 | PN ---
Date/Time of Note Date/Time of Note DATE: 05/17/16 TIME: 07:32 Assessment/Plan VTE Prophylaxis VTE Prophylaxis Intervention: SCD's Lines/Catheters IV Catheter Type (from Nrsg): PICC Line Central line still needed: No Urinary Cath still in place: Yes Reason Cath still needed: urinary retention Assessment/Plan Assessment/Plan Acute kidney injury Hypotension, improved Sepsis Respiratory Failure Preserved EF on echocardiogram March 02, 2016 History of intermittent Mobitz I Chronic pain syndrome -Blood pressure trend overall remains stable. IV fluids as per our nephrology colleagues. No new cardiac orders at the current time Subjective 24 Hr Interval Summary Free Text/Dictation The patient with no change Exam/Review of Systems Vital Signs Vitals Vital Signs Date Time Temp Pulse Resp B/P Pulse Ox O2 Delivery O2 Flow Rate FiO2 05/17/16 03:06 98 5.0 28 05/16/16 20:42 96 19 Aerosol 05/16/16 19:28 98.2 110/69 Intake and Output 05/16/16 05/16/16 05/17/16 15:00 23:00 07:00 Intake Total 960 ml 950 ml Output Total 1700 ml 1320 ml Balance -740 ml -370 ml Results Result Diagram: 05/17/16 0516 05/17/16 0516 Results 24 hrs Laboratory Tests Test 05/16/16 14:20 05/17/16 05:16 Sodium Level 144 144 Potassium Level 4.9 5.3 H Chloride Level 104 106 Carbon Dioxide Level 25 24 Anion Gap 20 H 19 H Blood Urea Nitrogen 63 H 67 H Creatinine 2.03 H 2.25 H Glucose Level 111 # 88 Calcium Level 9.6 9.3 White Blood Count 5.2 Red Blood Count 3.12 L Hemoglobin 9.5 L Hematocrit 31.4 L Mean Corpuscular Volume 100.6 Mean Corpuscular Hemoglobin 30.4 Mean Corpuscular Hemoglobin Concent 30.3 L Red Cell Distribution Width 13.9 Platelet Count 149 # Mean Platelet Volume 12.1 H Neutrophils % 69.6 Lymphocytes % 15.7 Monocytes % 12.2 H Eosinophils % 1.9 Basophils % 0.2 Nucleated Red Blood Cells % 0.0 Neutrophils # 3.6 Lymphocytes # 0.8 Monocytes # 0.6 Eosinophils # 0.1 Basophils # 0.0 Nucleated Red Blood Cells # 0.0 Medications Medications Current Medications Enoxaparin Sodium (Lovenox) 30 mg DAILY SC Last administered on 05/16/16 08:57 ; Admin Dose 30 MG; Start 05/04/16 at 09:00 Pantoprazole (Protonix Tab) 40 mg DAILY@06 PO Last administered on 05/17/16 05 :03; Admin Dose 40 MG; Start 05/04/16 at 06:00 Hydromorphone HCl (Dilaudid) 1 mg Q4 PRN IV SEVERE PAIN LEVEL 7-10 Last administered on 05/17/16 05:04; Admin Dose 1 MG; Start 05/03/16 at 18:30 Citric Acid/ Sodium Citrate (Bicitra) 30 ml TID PO Last administered on 20:55; Admin Dose 30 ML; Start 05/04/16 at 13:00 Zolpidem Tartrate (Ambien) 5 mg HS PRN PO INSOMNIA Last administered on 21:02; Admin Dose 5 MG; Start 05/05/16 at 20:30 IV Flush (NS 10 ml) 10 ml PRN PRN IV IV PROTOCOL; Start 05/06/16 at 12:30 Miscellaneous Information 1 ea NOTE XX ; Start 05/06/16 at 15:30 Glucose (Glutose) 15 gm Q15M PRN PO DECREASED GLUCOSE; Start 05/06/16 at 15:30 Glucose (Glutose) 22.5 gm Q15M PRN PO DECREASED GLUCOSE; Start 05/06/16 at 15: 30 Dextrose (D50w Syringe) 25 ml Q15M PRN IV DECREASED GLUCOSE; Start 05/06/16 at 15:30 Dextrose (D50w Syringe) 50 ml Q15M PRN IV DECREASED GLUCOSE; Start 05/06/16 at 15:30 Glucagon (Glucagen) 1 mg Q15M PRN IM DECREASED GLUCOSE; Start 05/06/16 at 15:30 Glucose (Glutose) 15 gm Q15M PRN BUCCAL DECREASED GLUCOSE; Start 05/06/16 at 15 :30 Gabapentin (Neurontin Liquid) 100 mg TID GTB Last administered on 05/16/16 20: 56; Admin Dose 100 MG; Start 05/07/16 at 22:00 Polyethylene Glycol (Miralax) 17 gm DAILY PRN PO CONSTIPATION; Start 05/10/16 at 14:00 Docusate Sodium (Colace) 100 mg BID PO Last administered on 05/16/16 20:56; Admin Dose 100 MG; Start 05/10/16 at 14:00 Acetaminophen (Tylenol Tab) 650 mg Q6H PRN PO PAIN AND OR ELEVATED TEMP Last administered on 05/15/16 19:59; Admin Dose 650 MG; Start 05/12/16 at 15:00 Silver Nitrate (Silver Nitrate Swabs) 1 stick Q7D TOP Last administered on 09:44; Admin Dose 1 STICK; Start 05/14/16 at 09:30 YIN RUSH MD May 17, 2016 07:34
[2016-05-17 07:54] VITALS: BP 99/65; RESP 20
[2016-05-17] MEDS: CITRIC ACID/NA CITRATE 30 ML CUP PO SCH ×3 (09:00→21:11)
[2016-05-17] MEDS: DOCUSATE SODIUM 100 MG CAP PO SCH ×3 (09:00→21:11)
[2016-05-17] MEDS: ENOXAPARIN 30 MG/0.3 ML SYG SC SCH (09:00)
[2016-05-17] MEDS: GABAPENTIN (50 MG/ML PO SYG) GTB SCH ×3 (09:01→21:11)
--- NOTE | 2016-05-17 10:21 | CONS ---
Date/Time of Note Date/Time of Note DATE: 05/17/16 TIME: 10:20 Assessment/Plan Assessment/Plan Additional Assessment/Plan 1. Acute hypernatremia, likely secondary to large free water deficits. 2. BELINDA due to ATN due to sepsis 3. acute hyperkalemia due to BELINDA due to ATN 3. History of a previous cardiac arrest, had a G-tube and tracheostomy in place. 4. History of coronary artery disease, status post coronary artery bypass graft. 5. History of previous aortic valve replacement, bioprosthetic valve 6. Currently the patient has been admitted for sepsis secondary to healthcare- associated pneumonia and urinary tract infection. The blood cultures grew Staph bacteremia, likely a contaminant. The patient has methicillin-resistant Staphylococcus aureus colonization. PLAN: Cr bumped to 2.25, K 5.3 , Na normal today, pt has been negative for 1.2 liter in last 24 hr, will give D51/2 NS x 2 liter, kayexalate 30 gram po x 1 dose now AM labs incluidng BMP will follow up Consultation Date/Type/Reason Admit Date/Time Initial Consult Date 05/03/2016 Type of Consultation: NEPHROLOGY Referring Provider: JOSÉ ANTONIO MIRZA MD 24 HR Interval Summary Free Text/Dictation pt creatinien bumped to 2.25, K 5.3 Exam/Review of Systems Vital Signs Vitals Vital Signs Date Time Temp Pulse Resp B/P Pulse Ox O2 Delivery O2 Flow Rate FiO2 05/17/16 07:54 98.1 73 20 99/65 97 05/17/16 07:31 5.0 28 05/16/16 20:42 Aerosol Intake and Output 05/16/16 05/16/16 05/17/16 15:00 23:00 07:00 Intake Total 960 ml 950 ml Output Total 1700 ml 1320 ml Balance -740 ml -370 ml Exam GENERAL: A/A/O -> able to eat lunch with Trach in place HEENT: Head atraumatic, normocephalic. Sclerae anicteric. Buccal mucosa pink. NECK: Supple. Tracheostomy present. CHEST: Chest rise is symmetrical. Breath sounds diminished to the bases. HEART: S1, S2. ABDOMEN: Soft. Bowel tones present. EXTREMITIES: Wasted, contractured. Results Result Diagram: 05/17/16 0516 05/17/16 0516 Results 24 hrs Laboratory Tests Test 05/16/16 14:20 05/17/16 05:16 Sodium Level 144 144 Potassium Level 4.9 5.3 H Chloride Level 104 106 Carbon Dioxide Level 25 24 Anion Gap 20 H 19 H Blood Urea Nitrogen 63 H 67 H Creatinine 2.03 H 2.25 H Glucose Level 111 # 88 Calcium Level 9.6 9.3 White Blood Count 5.2 Red Blood Count 3.12 L Hemoglobin 9.5 L Hematocrit 31.4 L Mean Corpuscular Volume 100.6 Mean Corpuscular Hemoglobin 30.4 Mean Corpuscular Hemoglobin Concent 30.3 L Red Cell Distribution Width 13.9 Platelet Count 149 # Mean Platelet Volume 12.1 H Neutrophils % 69.6 Lymphocytes % 15.7 Monocytes % 12.2 H Eosinophils % 1.9 Basophils % 0.2 Nucleated Red Blood Cells % 0.0 Neutrophils # 3.6 Lymphocytes # 0.8 Monocytes # 0.6 Eosinophils # 0.1 Basophils # 0.0 Nucleated Red Blood Cells # 0.0 Medications Medications Current Medications Enoxaparin Sodium (Lovenox) 30 mg DAILY SC Last administered on 05/16/16 08:57 ; Admin Dose 30 MG; Start 05/04/16 at 09:00 Pantoprazole (Protonix Tab) 40 mg DAILY@06 PO Last administered on 05/17/16 05 :03; Admin Dose 40 MG; Start 05/04/16 at 06:00 Hydromorphone HCl (Dilaudid) 1 mg Q4 PRN IV SEVERE PAIN LEVEL 7-10 Last administered on 05/17/16 09:02; Admin Dose 1 MG; Start 05/03/16 at 18:30 Citric Acid/ Sodium Citrate (Bicitra) 30 ml TID PO Last administered on 20:55; Admin Dose 30 ML; Start 05/04/16 at 13:00 Zolpidem Tartrate (Ambien) 5 mg HS PRN PO INSOMNIA Last administered on 21:02; Admin Dose 5 MG; Start 05/05/16 at 20:30 IV Flush (NS 10 ml) 10 ml PRN PRN IV IV PROTOCOL; Start 05/06/16 at 12:30 Miscellaneous Information 1 ea NOTE XX ; Start 05/06/16 at 15:30 Glucose (Glutose) 15 gm Q15M PRN PO DECREASED GLUCOSE; Start 05/06/16 at 15:30 Glucose (Glutose) 22.5 gm Q15M PRN PO DECREASED GLUCOSE; Start 05/06/16 at 15: 30 Dextrose (D50w Syringe) 25 ml Q15M PRN IV DECREASED GLUCOSE; Start 05/06/16 at 15:30 Dextrose (D50w Syringe) 50 ml Q15M PRN IV DECREASED GLUCOSE; Start 05/06/16 at 15:30 Glucagon (Glucagen) 1 mg Q15M PRN IM DECREASED GLUCOSE; Start 05/06/16 at 15:30 Glucose (Glutose) 15 gm Q15M PRN BUCCAL DECREASED GLUCOSE; Start 05/06/16 at 15 :30 Gabapentin (Neurontin Liquid) 100 mg TID GTB Last administered on 05/17/16 09: 01; Admin Dose 100 MG; Start 05/07/16 at 22:00 Polyethylene Glycol (Miralax) 17 gm DAILY PRN PO CONSTIPATION; Start 05/10/16 at 14:00 Docusate Sodium (Colace) 100 mg BID PO Last administered on 05/16/16 20:56; Admin Dose 100 MG; Start 05/10/16 at 14:00 Acetaminophen (Tylenol Tab) 650 mg Q6H PRN PO PAIN AND OR ELEVATED TEMP Last administered on 05/15/16 19:59; Admin Dose 650 MG; Start 05/12/16 at 15:00 Silver Nitrate (Silver Nitrate Swabs) 1 stick Q7D TOP Last administered on 09:44; Admin Dose 1 STICK; Start 05/14/16 at 09:30 TIARA CISNEROS MD May 17, 2016 10:21
[2016-05-17] MEDS ORDERED: NA POLYST SULFON 15 GM/60 ML BTL PO ONE (10:30)
[2016-05-17] MEDS: DEXTROSE 5%-0.45% NACL 1,000 ML IV SCH ×2 (10:59→23:20)
--- NOTE | 2016-05-17 19:07 | PN ---
Date/Time of Note Date/Time of Note DATE: 05/17/16 TIME: 19:06 Assessment/Plan VTE Prophylaxis VTE Prophylaxis Intervention: other Lines/Catheters [facility] P[facility] Line Urinary Cath still in place: Yes Assessment/Plan Assessment/Plan 1. Polymicrobial Urinary tract infection. Continue antibiotics per ID. Dr. Maciel is following patient in infection disease consultation. 2. Acute kidney injury on top of chronic kidney disease. Status post right nephrectomy. Left nephrolithiasis and renal cyst. Dr. Barker is following in nephrology consultation. Continue to monitor BUN and creatinine. 3. Ventilator-dependent respiratory failure with tracheostomy. is following patient in pulmonary consultation. Continue bronchodilators and ventilatory support. 4. Multiple decubitus ulcers present on admission. Continue zinc sulfate, multivitamins and offloading and current wound care. 5. Cervical spine injury with paraplegia. 6. Bipolar disorder with psychosis. Continue patient on risperidone b.i.d. and Lexapro. 7. Iron deficiency anemia. Continue patient on iron supplements. 8. Neurogenic bladder with suprapubic catheter. 9. Dysphagia with PEG. 10. Hyperkalemia- per nephrology - am labs Continue Lovenox for deep venous thrombosis prophylaxis and Protonix for peptic ulcer disease prophylaxis. Further recommendations based on clinical course. Plan of care discussed with Dr. Barreto. Subjective 24 Hr Interval Summary Eyes: no complaints ENT: no complaints Respiratory: no complaints Cardiovascular: no complaints Gastrointestinal: no complaints Genitourinary: no complaints Musculoskeletal: no complaints Skin: no complaints Neurologic: no complaints Endocrine: no complaints Lymphatic: no complaints Exam/Review of Systems Vital Signs Vitals Vital Signs Date Time Temp Pulse Resp B/P Pulse Ox O2 Delivery O2 Flow Rate FiO2 05/17/16 18:26 5.0 05/17/16 07:54 98.1 73 20 99/65 97 05/17/16 07:31 28 05/16/16 20:42 Aerosol Intake and Output 05/16/16 05/16/16 05/17/16 15:00 23:00 07:00 Intake Total 960 ml 950 ml Output Total 1700 ml 1320 ml Balance -740 ml -370 ml Exam Constitutional: alert, oriented Psych: nl mood/affect Head: atraumatic Eyes: EOMI, PERRL, nl sclera ENMT: nl external ears & nose Neck: non-tender Respiratory: clear to auscultation Cardiovascular: nl pulses Gastrointestinal: non-tender, other, soft Musculoskeletal: muscle weakness Extremities: normal pulses Neurological: other Lymph: nontender Results Result Diagram: 05/17/16 0516 05/17/16 0516 Results 24 hrs Laboratory Tests Test 05/17/16 05:16 White Blood Count 5.2 Red Blood Count 3.12 L Hemoglobin 9.5 L Hematocrit 31.4 L Mean Corpuscular Volume 100.6 Mean Corpuscular Hemoglobin 30.4 Mean Corpuscular Hemoglobin Concent 30.3 L Red Cell Distribution Width 13.9 Platelet Count 149 # Mean Platelet Volume 12.1 H Neutrophils % 69.6 Lymphocytes % 15.7 Monocytes % 12.2 H Eosinophils % 1.9 Basophils % 0.2 Nucleated Red Blood Cells % 0.0 Neutrophils # 3.6 Lymphocytes # 0.8 Monocytes # 0.6 Eosinophils # 0.1 Basophils # 0.0 Nucleated Red Blood Cells # 0.0 Sodium Level 144 Potassium Level 5.3 H Chloride Level 106 Carbon Dioxide Level 24 Anion Gap 19 H Blood Urea Nitrogen 67 H Creatinine 2.25 H Glucose Level 88 Calcium Level 9.3 Medications Medications Current Medications Enoxaparin Sodium (Lovenox) 30 mg DAILY SC Last administered on 05/16/16 08:57 ; Admin Dose 30 MG; Start 05/04/16 at 09:00 Pantoprazole (Protonix Tab) 40 mg DAILY@06 PO Last administered on 05/17/16 05 :03; Admin Dose 40 MG; Start 05/04/16 at 06:00 Hydromorphone HCl (Dilaudid) 1 mg Q4 PRN IV SEVERE PAIN LEVEL 7-10 Last administered on 05/17/16 17:16; Admin Dose 1 MG; Start 05/03/16 at 18:30 Citric Acid/ Sodium Citrate (Bicitra) 30 ml TID PO Last administered on 20:55; Admin Dose 30 ML; Start 05/04/16 at 13:00 Zolpidem Tartrate (Ambien) 5 mg HS PRN PO INSOMNIA Last administered on 21:02; Admin Dose 5 MG; Start 05/05/16 at 20:30 IV Flush (NS 10 ml) 10 ml PRN PRN IV IV PROTOCOL; Start 05/06/16 at 12:30 Miscellaneous Information 1 ea NOTE XX ; Start 05/06/16 at 15:30 Glucose (Glutose) 15 gm Q15M PRN PO DECREASED GLUCOSE; Start 05/06/16 at 15:30 Glucose (Glutose) 22.5 gm Q15M PRN PO DECREASED GLUCOSE; Start 05/06/16 at 15: 30 Dextrose (D50w Syringe) 25 ml Q15M PRN IV DECREASED GLUCOSE; Start 05/06/16 at 15:30 Dextrose (D50w Syringe) 50 ml Q15M PRN IV DECREASED GLUCOSE; Start 05/06/16 at 15:30 Glucagon (Glucagen) 1 mg Q15M PRN IM DECREASED GLUCOSE; Start 05/06/16 at 15:30 Glucose (Glutose) 15 gm Q15M PRN BUCCAL DECREASED GLUCOSE; Start 05/06/16 at 15 :30 Gabapentin (Neurontin Liquid) 100 mg TID GTB Last administered on 05/17/16 13: 01; Admin Dose 100 MG; Start 05/07/16 at 22:00 Polyethylene Glycol (Miralax) 17 gm DAILY PRN PO CONSTIPATION; Start 05/10/16 at 14:00 Docusate Sodium (Colace) 100 mg BID PO Last administered on 05/16/16 20:56; Admin Dose 100 MG; Start 05/10/16 at 14:00 Acetaminophen (Tylenol Tab) 650 mg Q6H PRN PO PAIN AND OR ELEVATED TEMP Last administered on 05/15/16 19:59; Admin Dose 650 MG; Start 05/12/16 at 15:00 Silver Nitrate 1 stick 1 stick Q7D TOP Last administered on 05/15/16 09:44; Admin Dose 1 STICK; Start 05/14/16 at 09:30 Dextrose/Sodium Chloride (D5-1/2ns) 1,000 ml @ 75 mls/hr [id number] IV Last administered on 05/17/16 10:59; Admin Dose 75 MLS/HR; Start 05/17/16 at 10:30; Stop 05/18/16 at 13:09 NAE VELAZCO May 17, 2016 19:07
[2016-05-17 19:35] VITALS: BP 101/66; RESP 18
[2016-05-17] MEDS: ZOLPIDEM 5 MG TAB PO PRN (22:20)
[2016-05-18] VITALS (11 sets, daily range): BP systolic 70–102; BP diastolic 37–66; PULSE 105–121; RESP 18–26
[2016-05-18] MEDS: HYDROmorphONE 1 MG/ML SYG IV PRN ×6 (01:41→23:55)
[2016-05-18] MEDS: PANTOPRAZOLE (EC) 40 MG TAB PO SCH (05:26)
[2016-05-18 05:50] LABS: ADD SCAN DIFF NO
[2016-05-18 05:52] LABS: BASOPHILS % 0.4 % (0.0-2.0); EOSINOPHILS # 0.2 10^3/ul (0.0-0.5); EOSINOPHILS % 2.6 % (0.0-7.0); HEMATOCRIT 31.5 % (42.0-52.0); HEMOGLOBIN 9.2 g/dl (14.0-18.0); LYMPHOCYTES # 0.8 10^3/ul (0.8-2.9); LYMPHOCYTES % 14.5 % (15.0-51.0); MEAN CORPUSCULAR HEMOGLOBIN 29.7 pg (29.0-33.0); MEAN CORPUSCULAR HGB CONC 29.2 g/dl (32.0-37.0); MEAN CORPUSCULAR VOLUME 101.6 fl (82.0-101.0); MEAN PLATELET VOLUME 12.4 fl (7.4-10.4); MONOCYTE # 0.6 10^3/ul (0.3-0.9); MONOCYTES % 10.4 % (0.0-11.0); NEUTROPHIL # 4.1 10^3/ul (1.6-7.5); NEUTROPHILS % 71.7 % (39.0-77.0); PLATELET COUNT 138 10^3/UL (140-415); RED CELL DISTRIBUTION WIDTH 13.8 % (11.5-14.5); WHITE BLOOD COUNT 5.7 10^3/ul (4.8-10.8)
[2016-05-18 06:13] LABS: MAGNESIUM 1.7 mg/dl (1.7-2.5); PHOSPHORUS 6.2 mg/dl (2.5-4.9); POTASSIUM 5.4 mmol/L (3.5-5.1)
[2016-05-18 06:16] LABS: CREATININE 2.17 mg/dl (0.61-1.24)
[2016-05-18 06:17] LABS: CALCIUM 9.1 mg/dl (8.4-10.2)
[2016-05-18] MEDS: GABAPENTIN (50 MG/ML PO SYG) GTB SCH ×3 (08:30→20:49)
[2016-05-18] MEDS: CITRIC ACID/NA CITRATE 30 ML CUP PO SCH ×3 (08:30→20:49)
[2016-05-18] MEDS: DOCUSATE SODIUM 100 MG CAP PO SCH ×2 (08:31→20:50)
[2016-05-18] MEDS: ENOXAPARIN 30 MG/0.3 ML SYG SC SCH (08:32)
--- NOTE | 2016-05-18 12:27 | CONS ---
Date/Time of Note Date/Time of Note DATE: 05/18/16 TIME: 12:24 Assessment/Plan Assessment/Plan Additional Assessment/Plan 1. Acute hypernatremia,- improved but pt went into BELINDA 2. BELINDA due to ATN due to sepsis 3. acute hyperkalemia due to BELINDA due to ATN 3. History of a previous cardiac arrest, had a G-tube and tracheostomy in place. 4. History of coronary artery disease, status post coronary artery bypass graft. 5. History of previous aortic valve replacement, bioprosthetic valve 6. Currently the patient has been admitted for sepsis secondary to healthcare- associated pneumonia and urinary tract infection. The blood cultures grew Staph bacteremia, likely a contaminant. The patient has methicillin-resistant Staphylococcus aureus colonization. PLAN: Cr improved to 2.17 today wtih IVF hydration, K still high pt refused kayexalate yesterday and also for today- Counselled multiple times will order another 2 liter of IVF from today AM labs incluidng BMP will follow up Consultation Date/Type/Reason Initial Consult Date 05/03/2016 Type of Consultation: NEPHROLOGY Referring Provider: JOSÉ ANTONIO MIRZA MD 24 HR Interval Summary Free Text/Dictation K 5.14, Cr improved to 2.15, BP stable Exam/Review of Systems Vital Signs Vitals Vital Signs Date Time Temp Pulse Resp B/P Pulse Ox O2 Delivery O2 Flow Rate FiO2 05/18/16 07:52 98.1 94 20 94/52 95 05/18/16 03:02 5.0 28 05/17/16 22:02 Aerosol Intake and Output 05/17/16 05/17/16 05/18/16 15:00 23:00 07:00 Intake Total 1680 ml 2015 ml Output Total 1000 ml 1400 ml Balance 680 ml 615 ml Exam GENERAL: This is a chronically ill-appearing, middle-aged white man, who is lying comfortably in bed. HEENT: Head atraumatic, normocephalic. Sclerae anicteric. Buccal mucosa pink. NECK: Supple. Tracheostomy present. CHEST: Chest rise is symmetrical. Breath sounds diminished to the bases. HEART: S1, S2. ABDOMEN: Soft. Bowel tones present. EXTREMITIES: Wasted, contractured. Results Result Diagram: 05/18/1652905/18/1630 Results 24 hrs Laboratory Tests Test 05/18/16 05:30 White Blood Count 5.7 Red Blood Count 3.10 L Hemoglobin 9.2 L Hematocrit 31.5 L Mean Corpuscular Volume 101.6 H Mean Corpuscular Hemoglobin 29.7 Mean Corpuscular Hemoglobin Concent 29.2 L Red Cell Distribution Width 13.8 Platelet Count 138 L Mean Platelet Volume 12.4 H Neutrophils % 71.7 Lymphocytes % 14.5 L Monocytes % 10.4 Eosinophils % 2.6 Basophils % 0.4 Nucleated Red Blood Cells % 0.0 Neutrophils # 4.1 Lymphocytes # 0.8 Monocytes # 0.6 Eosinophils # 0.2 Basophils # 0.0 Nucleated Red Blood Cells # 0.0 Sodium Level 142 Potassium Level 5.4 H Chloride Level 107 Carbon Dioxide Level 21 Anion Gap 19 H Blood Urea Nitrogen 66 H Creatinine 2.17 H Glucose Level 100 Calcium Level 9.1 Phosphorus Level 6.2 H Magnesium Level 1.7 Medications Medications Current Medications Enoxaparin Sodium (Lovenox) 30 mg DAILY SC Last administered on 05/16/16 08:57 ; Admin Dose 30 MG; Start 05/04/16 at 09:00 Pantoprazole (Protonix Tab) 40 mg DAILY@06 PO Last administered on 05/18/16 05 :26; Admin Dose 40 MG; Start 05/04/16 at 06:00 Hydromorphone HCl (Dilaudid) 1 mg Q4 PRN IV SEVERE PAIN LEVEL 7-10 Last administered on 05/18/16 10:45; Admin Dose 1 MG; Start 05/03/16 at 18:30 Citric Acid/ Sodium Citrate (Bicitra) 30 ml TID PO Last administered on 08:30; Admin Dose 30 ML; Start 05/04/16 at 13:00 Zolpidem Tartrate (Ambien) 5 mg HS PRN PO INSOMNIA Last administered on 22:20; Admin Dose 5 MG; Start 05/05/16 at 20:30 IV Flush (NS 10 ml) 10 ml PRN PRN IV IV PROTOCOL; Start 05/06/16 at 12:30 Miscellaneous Information 1 ea NOTE XX ; Start 05/06/16 at 15:30 Glucose (Glutose) 15 gm Q15M PRN PO DECREASED GLUCOSE; Start 05/06/16 at 15:30 Glucose (Glutose) 22.5 gm Q15M PRN PO DECREASED GLUCOSE; Start 05/06/16 at 15: 30 Dextrose (D50w Syringe) 25 ml Q15M PRN IV DECREASED GLUCOSE; Start 05/06/16 at 15:30 Dextrose (D50w Syringe) 50 ml Q15M PRN IV DECREASED GLUCOSE; Start 05/06/16 at 15:30 Glucagon (Glucagen) 1 mg Q15M PRN IM DECREASED GLUCOSE; Start 05/06/16 at 15:30 Glucose (Glutose) 15 gm Q15M PRN BUCCAL DECREASED GLUCOSE; Start 05/06/16 at 15 :30 Gabapentin (Neurontin Liquid) 100 mg TID GTB Last administered on 05/18/16 08: 30; Admin Dose 100 MG; Start 05/07/16 at 22:00 Polyethylene Glycol (Miralax) 17 gm DAILY PRN PO CONSTIPATION; Start 05/10/16 at 14:00 Docusate Sodium (Colace) 100 mg BID PO Last administered on 05/16/16 20:56; Admin Dose 100 MG; Start 05/10/16 at 14:00 Acetaminophen (Tylenol Tab) 650 mg Q6H PRN PO PAIN AND OR ELEVATED TEMP Last administered on 05/15/16 19:59; Admin Dose 650 MG; Start 05/12/16 at 15:00 Silver Nitrate 1 stick 1 stick Q7D TOP Last administered on 05/15/16 09:44; Admin Dose 1 STICK; Start 05/14/16 at 09:30 Dextrose/Sodium Chloride (D5-1/2ns) 1,000 ml @ 75 mls/hr [id number] IV Last administered on 05/17/16 23:20; Admin Dose 75 MLS/HR; Start 05/17/16 at 10:30; Stop 05/18/16 at 13:09 Sodium Polystyrene Sulfonate (Kayexalate) 30 gm ONCE ONCE PO ; Start 05/18/16 at 13:00; Stop 05/18/16 at 13:01 TIARA CISNEROS MD May 18, 2016 12:27
[2016-05-18] MEDS ORDERED: DEXTROSE 5%-0.45% NACL 1,000 ML IV SCH (13:00)
[2016-05-18] MEDS ORDERED: NA POLYST SULFON 15 GM/60 ML BTL PO ONE (13:00)
--- NOTE | 2016-05-18 14:27 | PN ---
Date/Time of Note Date/Time of Note DATE: 05/18/16 TIME: 14:26 Assessment/Plan VTE Prophylaxis VTE Prophylaxis Intervention: SCD's Lines/Catheters IV Catheter Type (from Nrsg): PICC Line Central line still needed: No Urinary Cath still in place: Yes Reason Cath still needed: urinary retention Assessment/Plan Assessment/Plan Acute kidney injury Hypotension, improved Sepsis Respiratory Failure Preserved EF on echocardiogram March 02, 2016 History of intermittent Mobitz I Chronic pain syndrome -Blood pressure trend overall remains stable. IV fluids as per our nephrology colleagues. No new cardiac orders at the current time Subjective 24 Hr Interval Summary Free Text/Dictation The aptient with no cahgne Exam/Review of Systems Vital Signs Vitals Vital Signs Date Time Temp Pulse Resp B/P Pulse Ox O2 Delivery O2 Flow Rate FiO2 05/18/16 07:52 98.1 94 20 94/52 95 05/18/16 03:02 5.0 28 05/17/16 22:02 Aerosol Intake and Output 05/17/16 05/17/16 05/18/16 14:59 22:59 06:59 Intake Total 1680 ml 2015 ml Output Total 1000 ml 1400 ml Balance 680 ml 615 ml Results Result Diagram: 05/18/16 0530 05/18/16 0530 Results 24 hrs Laboratory Tests Test 05/18/16 05:30 White Blood Count 5.7 Red Blood Count 3.10 L Hemoglobin 9.2 L Hematocrit 31.5 L Mean Corpuscular Volume 101.6 H Mean Corpuscular Hemoglobin 29.7 Mean Corpuscular Hemoglobin Concent 29.2 L Red Cell Distribution Width 13.8 Platelet Count 138 L Mean Platelet Volume 12.4 H Neutrophils % 71.7 Lymphocytes % 14.5 L Monocytes % 10.4 Eosinophils % 2.6 Basophils % 0.4 Nucleated Red Blood Cells % 0.0 Neutrophils # 4.1 Lymphocytes # 0.8 Monocytes # 0.6 Eosinophils # 0.2 Basophils # 0.0 Nucleated Red Blood Cells # 0.0 Sodium Level 142 Potassium Level 5.4 H Chloride Level 107 Carbon Dioxide Level 21 Anion Gap 19 H Blood Urea Nitrogen 66 H Creatinine 2.17 H Glucose Level 100 Calcium Level 9.1 Phosphorus Level 6.2 H Magnesium Level 1.7 Medications Medications Current Medications Enoxaparin Sodium (Lovenox) 30 mg DAILY SC Last administered on 05/16/16 08:57 ; Admin Dose 30 MG; Start 05/04/16 at 09:00 Pantoprazole (Protonix Tab) 40 mg DAILY@06 PO Last administered on 05/18/16 05 :26; Admin Dose 40 MG; Start 05/04/16 at 06:00 Hydromorphone HCl (Dilaudid) 1 mg Q4 PRN IV SEVERE PAIN LEVEL 7-10 Last administered on 05/18/16 14:15; Admin Dose 1 MG; Start 05/03/16 at 18:30 Citric Acid/ Sodium Citrate (Bicitra) 30 ml TID PO Last administered on 14:15; Admin Dose 30 ML; Start 05/04/16 at 13:00 Zolpidem Tartrate (Ambien) 5 mg HS PRN PO INSOMNIA Last administered on 22:20; Admin Dose 5 MG; Start 05/05/16 at 20:30 IV Flush (NS 10 ml) 10 ml PRN PRN IV IV PROTOCOL; Start 05/06/16 at 12:30 Miscellaneous Information 1 ea NOTE XX ; Start 05/06/16 at 15:30 Glucose (Glutose) 15 gm Q15M PRN PO DECREASED GLUCOSE; Start 05/06/16 at 15:30 Glucose (Glutose) 22.5 gm Q15M PRN PO DECREASED GLUCOSE; Start 05/06/16 at 15: 30 Dextrose (D50w Syringe) 25 ml Q15M PRN IV DECREASED GLUCOSE; Start 05/06/16 at 15:30 Dextrose (D50w Syringe) 50 ml Q15M PRN IV DECREASED GLUCOSE; Start 05/06/16 at 15:30 Glucagon (Glucagen) 1 mg Q15M PRN IM DECREASED GLUCOSE; Start 05/06/16 at 15:30 Glucose (Glutose) 15 gm Q15M PRN BUCCAL DECREASED GLUCOSE; Start 05/06/16 at 15 :30 Gabapentin (Neurontin Liquid) 100 mg TID GTB Last administered on 05/18/16 08: 30; Admin Dose 100 MG; Start 05/07/16 at 22:00 Polyethylene Glycol (Miralax) 17 gm DAILY PRN PO CONSTIPATION; Start 05/10/16 at 14:00 Docusate Sodium (Colace) 100 mg BID PO Last administered on 05/16/16 20:56; Admin Dose 100 MG; Start 05/10/16 at 14:00 Acetaminophen (Tylenol Tab) 650 mg Q6H PRN PO PAIN AND OR ELEVATED TEMP Last administered on 05/15/16 19:59; Admin Dose 650 MG; Start 05/12/16 at 15:00 Silver Nitrate 1 stick 1 stick Q7D TOP Last administered on 05/15/16 09:44; Admin Dose 1 STICK; Start 05/14/16 at 09:30 Dextrose/Sodium Chloride (D5-1/2ns) 1,000 ml @ 75 mls/hr [id number] IV Last administered on 05/18/16 12:32; Admin Dose 75 MLS/HR; Start 05/18/16 at 13:00; Stop 05/19/16 at 15:39 YIN RUSH MD May 18, 2016 14:27
[2016-05-18] MEDS ORDERED: SOD CHLORIDE 0.9% 1,000 ML IV ONE (20:30)
[2016-05-18] MEDS: ALBUTEROL/IPRATROPIUM (NEB) 3 ML AMP HHN PRN (20:32)
[2016-05-18] MEDS: SOD CHLORIDE 0.9% 1,000 ML IV SCH (22:56)
[2016-05-18] MEDS ORDERED: NORepinephrine 8MG/250 ML (PMX 250 ML IV SCH (23:00)
[2016-05-18] MEDS: ZOLPIDEM 5 MG TAB PO PRN (23:54)
[2016-05-19] VITALS (96 sets, daily range): BP systolic 64–121; BP diastolic 39–101; PULSE 75–123; RESP 10–28
[2016-05-19] MEDS: IMIPENEM-CILAST 500MG IV (PMX) 100 ML IVPB SCH ×3 (03:22→21:03)
[2016-05-19 04:40] LABS: ADD SCAN DIFF NO
[2016-05-19 04:52] LABS: ABNORMAL IP MESSAGE 1; BASOPHILS % 0.1 % (0.0-2.0); HEMATOCRIT 30.7 % (42.0-52.0); HEMOGLOBIN 8.9 g/dl (14.0-18.0); LYMPHOCYTES # 0.4 10^3/ul (0.8-2.9); LYMPHOCYTES % 2.8 % (15.0-51.0); MEAN CORPUSCULAR HEMOGLOBIN 29.4 pg (29.0-33.0); MEAN CORPUSCULAR VOLUME 101.3 fl (82.0-101.0); MEAN PLATELET VOLUME 12.5 fl (7.4-10.4); MONOCYTE # 0.9 10^3/ul (0.3-0.9); MONOCYTES % 6.2 % (0.0-11.0); NEUTROPHIL # 12.9 10^3/ul (1.6-7.5); NEUTROPHILS % 90.6 % (39.0-77.0); PLATELET COUNT 144 10^3/UL (140-415); RED BLOOD COUNT 3.03 10^6/ul (4.70-6.10); RED CELL DISTRIBUTION WIDTH 14.4 % (11.5-14.5); WHITE BLOOD COUNT 14.2 10^3/ul (4.8-10.8)
[2016-05-19 04:54] LABS: ALBUMIN 3.2 g/dl (3.3-4.9)
[2016-05-19 04:55] LABS: INR 1.05; POTASSIUM 5.1 mmol/L (3.5-5.1); PROTIME 13.7 Sec (12.2-14.2); PT RATIO 1.1
[2016-05-19 04:56] LABS: PARTIAL THROMBOPLASTIN TIME 35.6 Sec (25.0-35.0)
[2016-05-19 04:57] LABS: ALBUMIN/GLOBULIN RATIO 0.82; BILIRUBIN,INDIRECT 0.1 mg/dl (0-1.1); BILIRUBIN,TOTAL 0.1 mg/dl (0.2-1.3); CREATININE 2.66 mg/dl (0.61-1.24); TOTAL PROTEIN 7.1 g/dl (6.1-8.1)
[2016-05-19 04:58] LABS: CALCIUM 8.5 mg/dl (8.4-10.2)
[2016-05-19] MEDS: PANTOPRAZOLE (EC) 40 MG TAB PO SCH (05:19)
[2016-05-19] MEDS: HYDROmorphONE 1 MG/ML SYG IV PRN ×4 (07:56→22:12)
[2016-05-19] MEDS: DOCUSATE SODIUM 100 MG CAP PO SCH ×2 (08:02→20:55)
[2016-05-19] MEDS: ENOXAPARIN 30 MG/0.3 ML SYG SC SCH (08:04)
--- NOTE | 2016-05-19 08:16 | PN ---
Date/Time of Note Date/Time of Note DATE: 05/19/16 TIME: 08:14 Assessment/Plan VTE Prophylaxis VTE Prophylaxis Intervention: SCD's Lines/Catheters IV Catheter Type (from Nrsg): PICC Line Central line still needed: No Urinary Cath still in place: Yes (SUPRAPUBIC) Reason Cath still needed: urinary retention Assessment/Plan Assessment/Plan Acute kidney injury Hypotension Sepsis Respiratory Failure Preserved EF on echocardiogram March 02, 2016 History of intermittent Mobitz I > sinus tachy Chronic pain syndrome -s/p hypotension but now fairly stable on levophed - ?sepsis -wean off levophed as tolerated - IV fluids as per our nephrology colleagues. Subjective 24 Hr Interval Summary Free Text/Dictation The patient with hypotensio overnight and now on pressors in the ICU Exam/Review of Systems Vital Signs Vitals Vital Signs Date Time Temp Pulse Resp B/P Pulse Ox O2 Delivery O2 Flow Rate FiO2 05/19/16 04:30 90 18 69/40 95 Trach Collar 5.0 05/19/16 04:23 28 05/19/16 04:00 98.8 Intake and Output 05/18/16 05/18/16 05/19/16 14:59 22:59 06:59 Intake Total 1200 ml 282.5 ml Output Total 600 ml 270 ml Balance 600 ml 12.5 ml Results Result Diagram: 05/19/16 0400 05/19/16 0400 Results 24 hrs Laboratory Tests Test 05/18/16 22:50 05/19/16 04:00 Lactic Acid Level 2.2 White Blood Count 14.2 #H Red Blood Count 3.03 L Hemoglobin 8.9 L Hematocrit 30.7 L Mean Corpuscular Volume 101.3 H Mean Corpuscular Hemoglobin 29.4 Mean Corpuscular Hemoglobin Concent 29.0 L Red Cell Distribution Width 14.4 Platelet Count 144 Mean Platelet Volume 12.5 H Neutrophils % 90.6 H Lymphocytes % 2.8 L Monocytes % 6.2 Eosinophils % 0.0 Basophils % 0.1 Nucleated Red Blood Cells % 0.0 Neutrophils # 12.9 H Lymphocytes # 0.4 L Monocytes # 0.9 Eosinophils # 0.0 Basophils # 0.0 Nucleated Red Blood Cells # 0.0 Prothrombin Time 13.7 Prothrombin Time Ratio 1.1 INR International Normalized Ratio 1.05 Activated Partial Thromboplast Time 35.6 H Sodium Level 141 Potassium Level 5.1 Chloride Level 104 Carbon Dioxide Level 22 Anion Gap 20 H Blood Urea Nitrogen 66 H Creatinine 2.66 H Glucose Level 153 Calcium Level 8.5 Magnesium Level 1.8 Total Bilirubin 0.1 L Direct Bilirubin 0.00 Indirect Bilirubin 0.1 Aspartate Amino Transf (AST/SGOT) 25 Alanine Aminotransferase (ALT/SGPT) 30 Alkaline Phosphatase 229 H Total Protein 7.1 Albumin 3.2 L Globulin 3.90 H Albumin/Globulin Ratio 0.82 Medications Medications Current Medications Enoxaparin Sodium (Lovenox) 30 mg DAILY SC Last administered on 05/19/16 08:04 ; Admin Dose 30 MG; Start 05/04/16 at 09:00 Pantoprazole (Protonix Tab) 40 mg DAILY@06 PO Last administered on 05/19/16 05 :19; Admin Dose 40 MG; Start 05/04/16 at 06:00 Citric Acid/ Sodium Citrate (Bicitra) 30 ml TID PO Last administered on 20:49; Admin Dose 30 ML; Start 05/04/16 at 13:00 Zolpidem Tartrate (Ambien) 5 mg HS PRN PO INSOMNIA Last administered on 23:54; Admin Dose 5 MG; Start 05/05/16 at 20:30 IV Flush (NS 10 ml) 10 ml PRN PRN IV IV PROTOCOL; Start 05/06/16 at 12:30 Miscellaneous Information 1 ea NOTE XX ; Start 05/06/16 at 15:30 Glucose (Glutose) 15 gm Q15M PRN PO DECREASED GLUCOSE; Start 05/06/16 at 15:30 Glucose (Glutose) 22.5 gm Q15M PRN PO DECREASED GLUCOSE; Start 05/06/16 at 15: 30 Dextrose (D50w Syringe) 25 ml Q15M PRN IV DECREASED GLUCOSE; Start 05/06/16 at 15:30 Dextrose (D50w Syringe) 50 ml Q15M PRN IV DECREASED GLUCOSE; Start 05/06/16 at 15:30 Glucagon (Glucagen) 1 mg Q15M PRN IM DECREASED GLUCOSE; Start 05/06/16 at 15:30 Glucose (Glutose) 15 gm Q15M PRN BUCCAL DECREASED GLUCOSE; Start 05/06/16 at 15 :30 Gabapentin (Neurontin Liquid) 100 mg TID GTB Last administered on 05/18/16 20: 49; Admin Dose 100 MG; Start 05/07/16 at 22:00 Polyethylene Glycol (Miralax) 17 gm DAILY PRN PO CONSTIPATION; Start 05/10/16 at 14:00 Docusate Sodium (Colace) 100 mg BID PO Last administered on 05/19/16 08:02; Admin Dose 100 MG; Start 05/10/16 at 14:00 Acetaminophen (Tylenol Tab) 650 mg Q6H PRN PO PAIN AND OR ELEVATED TEMP Last administered on 05/15/16 19:59; Admin Dose 650 MG; Start 05/12/16 at 15:00 Silver Nitrate (Silver Nitrate Swabs) 1 stick Q7D TOP Last administered on 09:44; Admin Dose 1 STICK; Start 05/14/16 at 09:30 Hydromorphone HCl 0.5 mg 0.5 mg Q4H PRN IV SEVERE PAIN LEVEL 7-10 Last administered on 05/19/16 07:56; Admin Dose 0.5 MG; Start 05/18/16 at 20:30 Sodium Chloride 1,000 ml @ 75 mls/hr [id number] IV Last administered on 22:56; Admin Dose 75 MLS/HR; Start 05/18/16 at 22:30 Imipenem/ Cilastatin Sodium 100 ml @ 100 mls/hr Q8 IVPB Last administered on 03:22; Admin Dose 100 MLS/HR; Start 05/19/16 at 02:00 Norepinephrine (Levophed) 250 ml @ 1.875 mls/ hr TITRATE IV Last administered on 05/18/16 23:31; Admin Dose 3.75 MLS/HR; Start 05/18/16 at 23:00 YIN RUSH MD May 19, 2016 08:16
--- NOTE | 2016-05-19 08:38 | CONS ---
Date/Time of Note Date/Time of Note DATE: 05/19/16 TIME: 08:33 Assessment/Plan Assessment/Plan Additional Assessment/Plan 1. Septic shock on Levophed 2. BELINDA due to ATN due to septic shock 3. acute hyperkalemia due to BELINDA due to ATN 3. History of a previous cardiac arrest, had a G-tube and tracheostomy in place. 4. History of coronary artery disease, status post coronary artery bypass graft. 5. History of previous aortic valve replacement, bioprosthetic valve 6. Currently the patient has been admitted for sepsis secondary to healthcare- associated pneumonia and urinary tract infection. The blood cultures grew Staph bacteremia, likely a contaminant. The patient has methicillin-resistant Staphylococcus aureus colonization. PLAN: pt becomes more hypotensive, transferred to ICU, Cr bumped to 2.66, BUN 66, afebrile, pancultured, on levophed IVF NS at 75 cc/hr , IV abx as per PMD and ID K 5.1 today, will continue to monitor Electrolytes will follow up Consultation Date/Type/Reason Admit Date/Time Initial Consult Date 05/03/2016 Type of Consultation: NEPHROLOGY Referring Provider: JOSÉ ANTONIO MIRZA MD 24 HR Interval Summary Free Text/Dictation pt becomes more hypotensive, transferred to ICU, Cr bumped to 2.66, BUN 66, afebrile, pancultured Exam/Review of Systems Vital Signs Vitals Vital Signs Date Time Temp Pulse Resp B/P Pulse Ox O2 Delivery O2 Flow Rate FiO2 05/19/16 04:30 90 18 69/40 95 Trach Collar 5.0 05/19/16 04:23 28 05/19/16 04:00 98.8 Intake and Output 05/18/16 05/18/16 05/19/16 15:00 23:00 07:00 Intake Total 1200 ml 282.5 ml Output Total 600 ml 270 ml Balance 600 ml 12.5 ml Exam GENERAL: This is a chronically ill-appearing, middle-aged white man, who is lying comfortably in bed. HEENT: Head atraumatic, normocephalic. Sclerae anicteric. Buccal mucosa pink. NECK: Supple. Tracheostomy present. CHEST: Chest rise is symmetrical. Breath sounds diminished to the bases. HEART: S1, S2. ABDOMEN: Soft. Bowel tones present. EXTREMITIES: Wasted, contractured. Results Result Diagram: 05/19/16 0400 05/19/16 0400 Results 24 hrs Laboratory Tests Test 05/18/16 22:50 05/19/16 04:00 Lactic Acid Level 2.2 White Blood Count 14.2 #H Red Blood Count 3.03 L Hemoglobin 8.9 L Hematocrit 30.7 L Mean Corpuscular Volume 101.3 H Mean Corpuscular Hemoglobin 29.4 Mean Corpuscular Hemoglobin Concent 29.0 L Red Cell Distribution Width 14.4 Platelet Count 144 Mean Platelet Volume 12.5 H Neutrophils % 90.6 H Lymphocytes % 2.8 L Monocytes % 6.2 Eosinophils % 0.0 Basophils % 0.1 Nucleated Red Blood Cells % 0.0 Neutrophils # 12.9 H Lymphocytes # 0.4 L Monocytes # 0.9 Eosinophils # 0.0 Basophils # 0.0 Nucleated Red Blood Cells # 0.0 Prothrombin Time 13.7 Prothrombin Time Ratio 1.1 INR International Normalized Ratio 1.05 Activated Partial Thromboplast Time 35.6 H Sodium Level 141 Potassium Level 5.1 Chloride Level 104 Carbon Dioxide Level 22 Anion Gap 20 H Blood Urea Nitrogen 66 H Creatinine 2.66 H Glucose Level 153 Calcium Level 8.5 Magnesium Level 1.8 Total Bilirubin 0.1 L Direct Bilirubin 0.00 Indirect Bilirubin 0.1 Aspartate Amino Transf (AST/SGOT) 25 Alanine Aminotransferase (ALT/SGPT) 30 Alkaline Phosphatase 229 H Total Protein 7.1 Albumin 3.2 L Globulin 3.90 H Albumin/Globulin Ratio 0.82 Medications Medications Current Medications Enoxaparin Sodium (Lovenox) 30 mg DAILY SC Last administered on 05/19/16 08:04 ; Admin Dose 30 MG; Start 05/04/16 at 09:00 Pantoprazole (Protonix Tab) 40 mg DAILY@06 PO Last administered on 05/19/16 05 :19; Admin Dose 40 MG; Start 05/04/16 at 06:00 Citric Acid/ Sodium Citrate (Bicitra) 30 ml TID PO Last administered on 20:49; Admin Dose 30 ML; Start 05/04/16 at 13:00 Zolpidem Tartrate (Ambien) 5 mg HS PRN PO INSOMNIA Last administered on 23:54; Admin Dose 5 MG; Start 05/05/16 at 20:30 IV Flush (NS 10 ml) 10 ml PRN PRN IV IV PROTOCOL; Start 05/06/16 at 12:30 Miscellaneous Information 1 ea NOTE XX ; Start 05/06/16 at 15:30 Glucose (Glutose) 15 gm Q15M PRN PO DECREASED GLUCOSE; Start 05/06/16 at 15:30 Glucose (Glutose) 22.5 gm Q15M PRN PO DECREASED GLUCOSE; Start 05/06/16 at 15: 30 Dextrose (D50w Syringe) 25 ml Q15M PRN IV DECREASED GLUCOSE; Start 05/06/16 at 15:30 Dextrose (D50w Syringe) 50 ml Q15M PRN IV DECREASED GLUCOSE; Start 05/06/16 at 15:30 Glucagon (Glucagen) 1 mg Q15M PRN IM DECREASED GLUCOSE; Start 05/06/16 at 15:30 Glucose (Glutose) 15 gm Q15M PRN BUCCAL DECREASED GLUCOSE; Start 05/06/16 at 15 :30 Gabapentin (Neurontin Liquid) 100 mg TID GTB Last administered on 05/18/16 20: 49; Admin Dose 100 MG; Start 05/07/16 at 22:00 Polyethylene Glycol (Miralax) 17 gm DAILY PRN PO CONSTIPATION; Start 05/10/16 at 14:00 Docusate Sodium (Colace) 100 mg BID PO Last administered on 05/19/16 08:02; Admin Dose 100 MG; Start 05/10/16 at 14:00 Acetaminophen (Tylenol Tab) 650 mg Q6H PRN PO PAIN AND OR ELEVATED TEMP Last administered on 05/15/16 19:59; Admin Dose 650 MG; Start 05/12/16 at 15:00 Silver Nitrate (Silver Nitrate Swabs) 1 stick Q7D TOP Last administered on 09:44; Admin Dose 1 STICK; Start 05/14/16 at 09:30 Hydromorphone HCl 0.5 mg 0.5 mg Q4H PRN IV SEVERE PAIN LEVEL 7-10 Last administered on 05/19/16 07:56; Admin Dose 0.5 MG; Start 05/18/16 at 20:30 Sodium Chloride 1,000 ml @ 75 mls/hr [id number] IV Last administered on 22:56; Admin Dose 75 MLS/HR; Start 05/18/16 at 22:30 Imipenem/ Cilastatin Sodium 100 ml @ 100 mls/hr Q8 IVPB Last administered on 03:22; Admin Dose 100 MLS/HR; Start 05/19/16 at 02:00 Norepinephrine (Levophed) 250 ml @ 1.875 mls/ hr TITRATE IV Last administered on 05/18/16 23:31; Admin Dose 3.75 MLS/HR; Start 05/18/16 at 23:00 TIARA CISNEROS MD May 19, 2016 08:38
--- NOTE | 2016-05-19 08:56 | CONS ---
Date/Time of Note Date/Time of Note DATE: 05/19/16 TIME: 08:53 Assessment/Plan Assessment/Plan Additional Assessment/Plan Assessment recommendations; next 1. Patient initially admitted for UTI and sepsis was also on invasive mechanical ventilation and has subsequently been weaned T piece. 2. History of quadriplegia. Continue current supportive care. Consultation Date/Type/Reason Admit Date/Time May 04, 2016 at 12:27 Initial Consult Date 05/05/16 Type of Consultation: Pulmonary/critical care Referring Provider: JOSÉ ANTONIO MIRZA MD 24 HR Interval Summary Free Text/Dictation Patient was transferred to ICU because of hypotension. However currently off pressor support. Remains awake and alert. General exam; young male, awake and alert currently in no distress. Able to talk. Exam/Review of Systems Vital Signs Vitals Vital Signs Date Time Temp Pulse Resp B/P Pulse Ox O2 Delivery O2 Flow Rate FiO2 05/19/16 08:30 108 23 85/53 96 Trach Collar 5.0 05/19/16 08:00 98.1 05/19/16 04:23 28 Intake and Output 05/18/16 05/18/16 05/19/16 15:00 23:00 07:00 Intake Total 1200 ml 282.5 ml Output Total 600 ml 470 ml Balance 600 ml -187.5 ml Exam HEENT exam is; supple neck, no JVD. No lymphadenopathy. Midline trachea. No thyromegaly. Tracheostomy in place with clean insertion site. Pupils are midsize and reactive to light. Patient upper jaw is edentulous and has multiple carious teeth in the lower jaw. Chest exam is; diminished but clear breath sounds. S1-S2 audible, no murmurs. Regular rhythm. Abdomen examination; soft, scaphoid. G-tube in place. No organomegaly. Bowel sounds audible. Extremity exam is; no peripheral edema. 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 Has minimal upper extremity movements. Results Result Diagram: 05/19/16 0400 05/19/16 0400 Results 24 hrs Laboratory Tests Test 05/18/16 22:50 05/19/16 04:00 Lactic Acid Level 2.2 White Blood Count 14.2 #H Red Blood Count 3.03 L Hemoglobin 8.9 L Hematocrit 30.7 L Mean Corpuscular Volume 101.3 H Mean Corpuscular Hemoglobin 29.4 Mean Corpuscular Hemoglobin Concent 29.0 L Red Cell Distribution Width 14.4 Platelet Count 144 Mean Platelet Volume 12.5 H Neutrophils % 90.6 H Lymphocytes % 2.8 L Monocytes % 6.2 Eosinophils % 0.0 Basophils % 0.1 Nucleated Red Blood Cells % 0.0 Neutrophils # 12.9 H Lymphocytes # 0.4 L Monocytes # 0.9 Eosinophils # 0.0 Basophils # 0.0 Nucleated Red Blood Cells # 0.0 Prothrombin Time 13.7 Prothrombin Time Ratio 1.1 INR International Normalized Ratio 1.05 Activated Partial Thromboplast Time 35.6 H Sodium Level 141 Potassium Level 5.1 Chloride Level 104 Carbon Dioxide Level 22 Anion Gap 20 H Blood Urea Nitrogen 66 H Creatinine 2.66 H Glucose Level 153 Calcium Level 8.5 Magnesium Level 1.8 Total Bilirubin 0.1 L Direct Bilirubin 0.00 Indirect Bilirubin 0.1 Aspartate Amino Transf (AST/SGOT) 25 Alanine Aminotransferase (ALT/SGPT) 30 Alkaline Phosphatase 229 H Total Protein 7.1 Albumin 3.2 L Globulin 3.90 H Albumin/Globulin Ratio 0.82 Medications Medications Current Medications Enoxaparin Sodium (Lovenox) 30 mg DAILY SC Last administered on 05/19/16 08:04 ; Admin Dose 30 MG; Start 05/04/16 at 09:00 Pantoprazole (Protonix Tab) 40 mg DAILY@06 PO Last administered on 05/19/16 05 :19; Admin Dose 40 MG; Start 05/04/16 at 06:00 Citric Acid/ Sodium Citrate (Bicitra) 30 ml TID PO Last administered on 20:49; Admin Dose 30 ML; Start 05/04/16 at 13:00 Zolpidem Tartrate (Ambien) 5 mg HS PRN PO INSOMNIA Last administered on 23:54; Admin Dose 5 MG; Start 05/05/16 at 20:30 IV Flush (NS 10 ml) 10 ml PRN PRN IV IV PROTOCOL; Start 05/06/16 at 12:30 Miscellaneous Information 1 ea NOTE XX ; Start 05/06/16 at 15:30 Glucose (Glutose) 15 gm Q15M PRN PO DECREASED GLUCOSE; Start 05/06/16 at 15:30 Glucose (Glutose) 22.5 gm Q15M PRN PO DECREASED GLUCOSE; Start 05/06/16 at 15: 30 Dextrose (D50w Syringe) 25 ml Q15M PRN IV DECREASED GLUCOSE; Start 05/06/16 at 15:30 Dextrose (D50w Syringe) 50 ml Q15M PRN IV DECREASED GLUCOSE; Start 05/06/16 at 15:30 Glucagon (Glucagen) 1 mg Q15M PRN IM DECREASED GLUCOSE; Start 05/06/16 at 15:30 Glucose (Glutose) 15 gm Q15M PRN BUCCAL DECREASED GLUCOSE; Start 05/06/16 at 15 :30 Gabapentin (Neurontin Liquid) 100 mg TID GTB Last administered on 05/18/16 20: 49; Admin Dose 100 MG; Start 05/07/16 at 22:00 Polyethylene Glycol (Miralax) 17 gm DAILY PRN PO CONSTIPATION; Start 05/10/16 at 14:00 Docusate Sodium (Colace) 100 mg BID PO Last administered on 05/19/16 08:02; Admin Dose 100 MG; Start 05/10/16 at 14:00 Acetaminophen (Tylenol Tab) 650 mg Q6H PRN PO PAIN AND OR ELEVATED TEMP Last administered on 05/15/16 19:59; Admin Dose 650 MG; Start 05/12/16 at 15:00 Silver Nitrate (Silver Nitrate Swabs) 1 stick Q7D TOP Last administered on 09:44; Admin Dose 1 STICK; Start 05/14/16 at 09:30 Hydromorphone HCl 0.5 mg 0.5 mg Q4H PRN IV SEVERE PAIN LEVEL 7-10 Last administered on 05/19/16 07:56; Admin Dose 0.5 MG; Start 05/18/16 at 20:30 Sodium Chloride 1,000 ml @ 75 mls/hr [id number] IV Last administered on 22:56; Admin Dose 75 MLS/HR; Start 05/18/16 at 22:30 Imipenem/ Cilastatin Sodium 100 ml @ 100 mls/hr Q8 IVPB Last administered on 03:22; Admin Dose 100 MLS/HR; Start 05/19/16 at 02:00 Norepinephrine (Levophed) 250 ml @ 1.875 mls/ hr TITRATE IV Last administered on 05/18/16 23:31; Admin Dose 3.75 MLS/HR; Start 05/18/16 at 23:00 TEX RIVER May 19, 2016 08:55
[2016-05-19] MEDS: CITRIC ACID/NA CITRATE 30 ML CUP PO SCH ×3 (09:00→20:59)
[2016-05-19] MEDS: GABAPENTIN (50 MG/ML PO SYG) GTB SCH ×3 (09:25→20:59)
--- NOTE | 2016-05-19 10:43 | PN ---
Date/Time of Note Date/Time of Note DATE: 05/19/16 TIME: 10:42 Assessment/Plan VTE Prophylaxis VTE Prophylaxis Intervention: SCD's Lines/Catheters IV Catheter Type (from Nrs): PICC Line Urinary Cath still in place: Yes (SUPRAPUBIC) Assessment/Plan Assessment/Plan 1. Polymicrobial Urinary tract infection. Continue antibiotics per ID. Dr. Maciel is following patient in infection disease consultation. 2. Acute kidney injury on top of chronic kidney disease. Status post right nephrectomy. Left nephrolithiasis and renal cyst. Dr. Barker is following in nephrology consultation. Continue to monitor BUN and creatinine. 3. Ventilator-dependent respiratory failure with tracheostomy. is following patient in pulmonary consultation. Continue bronchodilators and ventilatory support. 4. Multiple decubitus ulcers present on admission. Continue zinc sulfate, multivitamins and offloading and current wound care. 5. Cervical spine injury with paraplegia. 6. Bipolar disorder with psychosis. Continue patient on risperidone b.i.d. and Lexapro. 7. Iron deficiency anemia. Continue patient on iron supplements. 8. Neurogenic bladder with suprapubic catheter. 9. Dysphagia with PEG. 10. Hyperkalemia- resolved Continue Lovenox for deep venous thrombosis prophylaxis and Protonix for peptic ulcer disease prophylaxis. Further recommendations based on clinical course. Plan of care discussed with Dr. Barreto. Subjective 24 Hr Interval Summary Eyes: no complaints Respiratory: shortness of breath Cardiovascular: no complaints Gastrointestinal: no complaints Genitourinary: no complaints Musculoskeletal: no complaints Neurologic: no complaints Exam/Review of Systems Vital Signs Vitals Vital Signs Date Time Temp Pulse Resp B/P Pulse Ox O2 Delivery O2 Flow Rate FiO2 05/19/16 10:00 105 21 104/91 98 Venturi Mask 05/19/16 08:30 5.0 05/19/16 08:00 98.1 05/19/16 04:23 28 Intake and Output 05/18/16 05/18/16 05/19/16 15:00 23:00 07:00 Intake Total 1200 ml 282.5 ml Output Total 600 ml 470 ml Balance 600 ml -187.5 ml Exam Constitutional: alert, oriented Psych: nl mood/affect Head: atraumatic Eyes: EOMI, PERRL, nl sclera ENMT: nl external ears & nose Neck: non-tender Respiratory: diminished breath sounds Cardiovascular: nl pulses Gastrointestinal: non-tender, soft Musculoskeletal: muscle weakness Extremities: normal pulses Lymph: nontender Results Result Diagram: 05/19/16 0400 05/19/16 0400 Results 24 hrs Laboratory Tests Test 05/18/16 22:50 05/19/16 04:00 Lactic Acid Level 2.2 White Blood Count 14.2 #H Red Blood Count 3.03 L Hemoglobin 8.9 L Hematocrit 30.7 L Mean Corpuscular Volume 101.3 H Mean Corpuscular Hemoglobin 29.4 Mean Corpuscular Hemoglobin Concent 29.0 L Red Cell Distribution Width 14.4 Platelet Count 144 Mean Platelet Volume 12.5 H Neutrophils % 90.6 H Lymphocytes % 2.8 L Monocytes % 6.2 Eosinophils % 0.0 Basophils % 0.1 Nucleated Red Blood Cells % 0.0 Neutrophils # 12.9 H Lymphocytes # 0.4 L Monocytes # 0.9 Eosinophils # 0.0 Basophils # 0.0 Nucleated Red Blood Cells # 0.0 Prothrombin Time 13.7 Prothrombin Time Ratio 1.1 INR International Normalized Ratio 1.05 Activated Partial Thromboplast Time 35.6 H Sodium Level 141 Potassium Level 5.1 Chloride Level 104 Carbon Dioxide Level 22 Anion Gap 20 H Blood Urea Nitrogen 66 H Creatinine 2.66 H Glucose Level 153 Calcium Level 8.5 Magnesium Level 1.8 Total Bilirubin 0.1 L Direct Bilirubin 0.00 Indirect Bilirubin 0.1 Aspartate Amino Transf (AST/SGOT) 25 Alanine Aminotransferase (ALT/SGPT) 30 Alkaline Phosphatase 229 H Total Protein 7.1 Albumin 3.2 L Globulin 3.90 H Albumin/Globulin Ratio 0.82 Medications Medications Current Medications Enoxaparin Sodium (Lovenox) 30 mg DAILY SC Last administered on 05/19/16 08:04 ; Admin Dose 30 MG; Start 05/04/16 at 09:00 Pantoprazole (Protonix Tab) 40 mg DAILY@06 PO Last administered on 05/19/16 05 :19; Admin Dose 40 MG; Start 05/04/16 at 06:00 Citric Acid/ Sodium Citrate (Bicitra) 30 ml TID PO Last administered on 20:49; Admin Dose 30 ML; Start 05/04/16 at 13:00 Zolpidem Tartrate (Ambien) 5 mg HS PRN PO INSOMNIA Last administered on 23:54; Admin Dose 5 MG; Start 05/05/16 at 20:30 IV Flush (NS 10 ml) 10 ml PRN PRN IV IV PROTOCOL; Start 05/06/16 at 12:30 Miscellaneous Information 1 ea NOTE XX ; Start 05/06/16 at 15:30 Glucose (Glutose) 15 gm Q15M PRN PO DECREASED GLUCOSE; Start 05/06/16 at 15:30 Glucose (Glutose) 22.5 gm Q15M PRN PO DECREASED GLUCOSE; Start 05/06/16 at 15: 30 Dextrose (D50w Syringe) 25 ml Q15M PRN IV DECREASED GLUCOSE; Start 05/06/16 at 15:30 Dextrose (D50w Syringe) 50 ml Q15M PRN IV DECREASED GLUCOSE; Start 05/06/16 at 15:30 Glucagon (Glucagen) 1 mg Q15M PRN IM DECREASED GLUCOSE; Start 05/06/16 at 15:30 Glucose (Glutose) 15 gm Q15M PRN BUCCAL DECREASED GLUCOSE; Start 05/06/16 at 15 :30 Gabapentin (Neurontin Liquid) 100 mg TID GTB Last administered on 05/19/16 09: 25; Admin Dose 100 MG; Start 05/07/16 at 22:00 Polyethylene Glycol (Miralax) 17 gm DAILY PRN PO CONSTIPATION; Start 05/10/16 at 14:00 Docusate Sodium (Colace) 100 mg BID PO Last administered on 05/19/16 08:02; Admin Dose 100 MG; Start 05/10/16 at 14:00 Acetaminophen (Tylenol Tab) 650 mg Q6H PRN PO PAIN AND OR ELEVATED TEMP Last administered on 05/15/16 19:59; Admin Dose 650 MG; Start 05/12/16 at 15:00 Silver Nitrate (Silver Nitrate Swabs) 1 stick Q7D TOP Last administered on 09:44; Admin Dose 1 STICK; Start 05/14/16 at 09:30 Hydromorphone HCl 0.5 mg 0.5 mg Q4H PRN IV SEVERE PAIN LEVEL 7-10 Last administered on 05/19/16 07:56; Admin Dose 0.5 MG; Start 05/18/16 at 20:30 Sodium Chloride 1,000 ml @ 75 mls/hr [id number] IV Last administered on 22:56; Admin Dose 75 MLS/HR; Start 05/18/16 at 22:30 Imipenem/ Cilastatin Sodium 100 ml @ 100 mls/hr Q8 IVPB Last administered on 03:22; Admin Dose 100 MLS/HR; Start 05/19/16 at 02:00 Norepinephrine (Levophed) 250 ml @ 1.875 mls/ hr TITRATE IV Last administered on 05/18/16 23:31; Admin Dose 3.75 MLS/HR; Start 05/18/16 at 23:00 NAE VELAZCO May 19, 2016 10:43
[2016-05-19 11:02] LABS: TOTAL PROTEIN 6.6 g/dl (6.1-8.1)
[2016-05-19] MEDS: SOD CHLORIDE 0.9% 1,000 ML IV SCH ×2 (11:50→14:24)
--- NOTE | 2016-05-19 14:04 | PN ---
DATE: 05/19/2016 SUBJECTIVE: The patient was transferred to ICU yesterday secondary to low blood pressure, started o n Levophed drip which is being weaned down. The patient is awake, alert, denies pain. No fevers. VITAL SIGNS: Temperature 98.8, pulse 99, respirations 19, blood pressure 93/62, saturation 95% on 5 liters trach collar. LABORATORY DATA: WBC 14.2, H and H 8.9 and 30.7, platelets 144, neutrophils 90.6. BUN 66, creatini ne 2.66. INDWELLINGS: Left upper extremity PICC line placed on 05/06/2016, trach, PEG, suprapubic catheter. ANTIMICROBIALS: Imipenem. PHYSICAL EXAMINATION: GENERAL: This is well-developed, middle-aged, chronically ill-appearing man who is awake, in no dis tress. HEENT: Head atraumatic, normocephalic. Sclerae anicteric. Buccal mucosa dry. NECK: Supple. Tracheostomy present. CHEST: Rise symmetrical. Breath sounds diminished to bases. HEART: S1, S2. ABDOMEN: Soft, bowel sounds present. EXTREMITIES: Wasted without cyanosis. ASSESSMENT: 1. Recurrent sepsis with shock, possibly recurrent urinary tract infection, rule out line sepsis, r ule out pneumonia. 2. Incomplete quadriplegia. 3. Chronic respiratory failure. 4. Acute on chronic kidney disease. 5. History of right nephrectomy. PLAN: The patient is clinically stable. We are going to repeat blood cultures from PICC line. Ord er chest x-ray. Await for urine culture. Add vancomycin to the regimen or Zyvox given his renal fu nction. Further recommendations per patient's clinical course. Dictated By: REGINALDO CHERY BLADE CHANGER for ANTONELLA STEWART MD NI/NTS Conf#: [id number] DID#: [id number]
--- NOTE | 2016-05-19 15:46 | RADRPT ---
PROCEDURE: XR Chest. CLINICAL INDICATION: Shortness of breath. TECHNIQUE: Single frontal view. COMPARISON: 05/06/2016. FINDINGS: The tracheostomy tube is in satisfactory position. There is a left arm PICC line with the tip in th e lower superior vena cava. There is mild pulmonary edema, unchanged. Right basilar atelectasis is improved. The heart is mildly enlarged. There is calcification in the aorta consistent with atherosclerosis. There is no pleural effusion. There is no pneumothorax. IMPRESSION: 1. Improved right basilar atelectasis. 2. No other change from 05/06/2016. RPTAT: QQ .Cain Castellanos MD, MD Date Time Electronically viewed and signed by .Cain Castellanos MD, MD on 05/19/2016 15:46 .R/
--- NOTE | 2016-05-19 18:44 | RADRPT ---
PROCEDURE: US Abdomen (right upper quadrant). CLINICAL INDICATION: Elevated liver function tests. TECHNIQUE: Multiple real-time longitudinal and transverse images of the right upper quadrant of th e abdomen were acquired utilizing a curved array transducer. Images were reviewed on a high-resoluti on PACS workstation. COMPARISON: None FINDINGS: The liver is normal in size and echogenicity. There is no focal hepatic lesion. Color Doppler and pulsed Doppler sonography demonstrate normal an tegrade flow in the portal vein. Gallstones are present in the gallbladder. There is no gallbladder wall thickening and there is no fluid around the gallbladder. The bile ducts are normal with the common bile duct measuring 5.2 mm in diameter. The pancreas is not visualized due to overlying bowel gas. No free fluid is present. The right kidney is surgically absent. IMPRESSION: 1. Gallstones in the gallbladder. No evidence of cholecystitis. 2. Pancreas not visualized. 3. Right kidney is surgically absent. RPTAT: QQ .Cain Castellanos MD, MD Date Time Electronically viewed and signed by .Cain Castellanos MD, on 05/19/2016 18:44 .R/
[2016-05-19] MEDS: ZYVOX 600 MG TAB PO SCH (20:59)
[2016-05-20] VITALS (21 sets, daily range): BP systolic 91–120; BP diastolic 54–80; PULSE 71–94; RESP 15–23
[2016-05-20] MEDS: HYDROmorphONE 1 MG/ML SYG IV PRN ×4 (04:26→20:00)
[2016-05-20] MEDS: SOD CHLORIDE 0.9% 1,000 ML IV SCH (05:30)
[2016-05-20] MEDS: IMIPENEM-CILAST 500MG IV (PMX) 100 ML IVPB SCH ×3 (05:30→21:34)
[2016-05-20] MEDS: PANTOPRAZOLE (EC) 40 MG TAB PO SCH (05:31)
[2016-05-20 05:46] LABS: ADD SCAN DIFF NO
[2016-05-20 05:52] LABS: ABNORMAL IP MESSAGE 1; BASOPHILS % 0.2 % (0.0-2.0); EOSINOPHILS # 0.1 10^3/ul (0.0-0.5); EOSINOPHILS % 1.1 % (0.0-7.0); HEMATOCRIT 29.2 % (42.0-52.0); HEMOGLOBIN 8.4 g/dl (14.0-18.0); LYMPHOCYTES # 0.6 10^3/ul (0.8-2.9); LYMPHOCYTES % 11.5 % (15.0-51.0); MEAN CORPUSCULAR HEMOGLOBIN 29.5 pg (29.0-33.0); MEAN CORPUSCULAR HGB CONC 28.8 g/dl (32.0-37.0); MEAN CORPUSCULAR VOLUME 102.5 fl (82.0-101.0); MEAN PLATELET VOLUME 12.3 fl (7.4-10.4); MONOCYTE # 0.8 10^3/ul (0.3-0.9); MONOCYTES % 15.1 % (0.0-11.0); NEUTROPHIL # 3.8 10^3/ul (1.6-7.5); NEUTROPHILS % 71.9 % (39.0-77.0); PLATELET COUNT 128 10^3/UL (140-415); RED BLOOD COUNT 2.85 10^6/ul (4.70-6.10); RED CELL DISTRIBUTION WIDTH 14.1 % (11.5-14.5); WHITE BLOOD COUNT 5.2 10^3/ul (4.8-10.8)
[2016-05-20 06:02] LABS: POTASSIUM 4.8 mmol/L (3.5-5.1)
[2016-05-20 06:04] LABS: CREATININE 2.04 mg/dl (0.61-1.24)
[2016-05-20] MEDS: GABAPENTIN (50 MG/ML PO SYG) GTB SCH ×3 (08:53→21:26)
[2016-05-20] MEDS: DOCUSATE SODIUM 100 MG CAP PO SCH ×2 (08:54→21:00)
[2016-05-20] MEDS: ZYVOX 600 MG TAB PO SCH ×2 (08:54→21:27)
[2016-05-20] MEDS: CITRIC ACID/NA CITRATE 30 ML CUP PO SCH ×3 (08:54→21:29)
[2016-05-20] MEDS: ENOXAPARIN 30 MG/0.3 ML SYG SC SCH (08:56)
[2016-05-20] MEDS: SOD CHLORIDE 0.45% 1,000 ML IV SCH ×3 (09:00→23:18)
--- NOTE | 2016-05-20 09:01 | CONS ---
Date/Time of Note Date/Time of Note DATE: 05/20/16 TIME: 08:57 Assessment/Plan Assessment/Plan Additional Assessment/Plan 1. Septic shock- s/p levophed 2. BELINDA due to ATN due to septic shock 3. acute hyperkalemia due to BELINDA due to ATN - now improved 3. History of a previous cardiac arrest, had a G-tube and tracheostomy in place. 4. History of coronary artery disease, status post coronary artery bypass graft. 5. History of previous aortic valve replacement, bioprosthetic valve PLAN: Cr improved to 2.04, pt made good urine output 2.04 liter, BP stable, off levophed Cl trending up, I will change IVF from NS to 1/2 NS at 70 cc/hr Electrolytes stable today, will monitor it will follow up Consultation Date/Type/Reason Initial Consult Date 05/03/2016 Type of Consultation: NEPHROLOGY Referring Provider: JOSÉ ANTONIO MIRZA MD 24 HR Interval Summary Free Text/Dictation cr improves to 2.01, U/o > 4 liter, BP stable Exam/Review of Systems Vital Signs Vitals Vital Signs Date Time Temp Pulse Resp B/P Pulse Ox O2 Delivery O2 Flow Rate FiO2 05/20/16 06:00 81 17 100/62 96 Trach Collar 05/20/16 04:17 5.0 28 05/20/16 04:00 98.0 Intake and Output 05/19/16 05/19/16 05/20/16 15:00 23:00 07:00 Intake Total 1485.72 ml 1073.87 ml 850 ml Output Total 2205 ml 1235 ml 1265 ml Balance -719.28 ml -161.13 ml -415 ml Results Result Diagram: 05/20/16 0530 05/20/16 0530 Results 24 hrs Laboratory Tests Test 05/20/16 05:30 White Blood Count 5.2 # Red Blood Count 2.85 L Hemoglobin 8.4 L Hematocrit 29.2 L Mean Corpuscular Volume 102.5 H Mean Corpuscular Hemoglobin 29.5 Mean Corpuscular Hemoglobin Concent 28.8 L Red Cell Distribution Width 14.1 Platelet Count 128 L Mean Platelet Volume 12.3 H Neutrophils % 71.9 Lymphocytes % 11.5 L Monocytes % 15.1 H Eosinophils % 1.1 Basophils % 0.2 Nucleated Red Blood Cells % 0.0 Neutrophils # 3.8 Lymphocytes # 0.6 L Monocytes # 0.8 Eosinophils # 0.1 Basophils # 0.0 Nucleated Red Blood Cells # 0.0 Sodium Level 144 Potassium Level 4.8 Chloride Level 113 H Carbon Dioxide Level 21 Anion Gap 15 Blood Urea Nitrogen 66 H Creatinine 2.04 H Glucose Level 109 # Calcium Level 9.0 Medications Medications Current Medications Enoxaparin Sodium (Lovenox) 30 mg DAILY SC Last administered on 05/20/16 08:56 ; Admin Dose 30 MG; Start 05/04/16 at 09:00 Pantoprazole (Protonix Tab) 40 mg DAILY@06 PO Last administered on 05/20/16 05 :31; Admin Dose 40 MG; Start 05/04/16 at 06:00 Citric Acid/ Sodium Citrate (Bicitra) 30 ml TID PO Last administered on 08:54; Admin Dose 30 ML; Start 05/04/16 at 13:00 Zolpidem Tartrate (Ambien) 5 mg HS PRN PO INSOMNIA Last administered on 23:54; Admin Dose 5 MG; Start 05/05/16 at 20:30 IV Flush (NS 10 ml) 10 ml PRN PRN IV IV PROTOCOL; Start 05/06/16 at 12:30 Miscellaneous Information 1 ea NOTE XX ; Start 05/06/16 at 15:30 Glucose (Glutose) 15 gm Q15M PRN PO DECREASED GLUCOSE; Start 05/06/16 at 15:30 Glucose (Glutose) 22.5 gm Q15M PRN PO DECREASED GLUCOSE; Start 05/06/16 at 15: 30 Dextrose (D50w Syringe) 25 ml Q15M PRN IV DECREASED GLUCOSE; Start 05/06/16 at 15:30 Dextrose (D50w Syringe) 50 ml Q15M PRN IV DECREASED GLUCOSE; Start 05/06/16 at 15:30 Glucagon (Glucagen) 1 mg Q15M PRN IM DECREASED GLUCOSE; Start 05/06/16 at 15:30 Glucose (Glutose) 15 gm Q15M PRN BUCCAL DECREASED GLUCOSE; Start 05/06/16 at 15 :30 Gabapentin (Neurontin Liquid) 100 mg TID GTB Last administered on 05/20/16 08: 53; Admin Dose 100 MG; Start 4/1/17 at 22:00 Polyethylene Glycol (Miralax) 17 gm DAILY PRN PO CONSTIPATION; Start 05/10/16 at 14:00 Docusate Sodium (Colace) 100 mg BID PO Last administered on 05/20/16 08:54; Admin Dose 100 MG; Start 05/10/16 at 14:00 Acetaminophen (Tylenol Tab) 650 mg Q6H PRN PO PAIN AND OR ELEVATED TEMP Last administered on 05/15/16 19:59; Admin Dose 650 MG; Start 05/12/16 at 15:00 Silver Nitrate (Silver Nitrate Swabs) 1 stick Q7D TOP Last administered on 09:44; Admin Dose 1 STICK; Start 05/14/16 at 09:30 Hydromorphone HCl 0.5 mg 0.5 mg Q4H PRN IV SEVERE PAIN LEVEL 7-10 Last administered on 05/20/16 04:26; Admin Dose 0.5 MG; Start 05/18/16 at 20:30 Sodium Chloride 1,000 ml @ 75 mls/hr [id number] IV Last administered on 05:30; Admin Dose 75 MLS/HR; Start 05/18/16 at 22:30 Imipenem/ Cilastatin Sodium 100 ml @ 100 mls/hr Q8 IVPB Last administered on 05:30; Admin Dose 100 MLS/HR; Start 05/19/16 at 02:00 Norepinephrine/ Dextrose (Levophed/D5W) 500 ml @ 1.87 mls/hr TITRATE IV ; Start 05/19/16 at 12:30 Linezolid (Zyvox) 600 mg BID PO Last administered on 05/20/16 08:54; Admin Dose 600 MG; Start 05/19/16 at 21:00 TIARA CISNEROS MD May 20, 2016 09:01
--- NOTE | 2016-05-20 10:39 | PN ---
Date/Time of Note Date/Time of Note DATE: 05/20/16 TIME: 10:36 Assessment/Plan VTE Prophylaxis VTE Prophylaxis Intervention: LMWH, SCD's Lines/Catheters IV Catheter Type (from Nrs): PICC Line Urinary Cath still in place: Yes (SUPRAPUBIC) Assessment/Plan Assessment/Plan 1. Polymicrobial Urinary tract infection. Continue antibiotics per ID. Dr. Maciel is following patient in infection disease consultation. 2. Acute kidney injury on top of chronic kidney disease. Status post right nephrectomy. Left nephrolithiasis and renal cyst. Dr. Barker is following in nephrology consultation. Continue to monitor BUN and creatinine. 3. Ventilator-dependent respiratory failure with tracheostomy. is following patient in pulmonary consultation. Continue bronchodilators and ventilatory support. 4. Multiple decubitus ulcers present on admission. Continue zinc sulfate, multivitamins and offloading and current wound care. 5. Cervical spine injury with paraplegia. 6. Bipolar disorder with psychosis. Continue patient on risperidone b.i.d. and Lexapro. 7. Iron deficiency anemia. Continue patient on iron supplements. 8. Neurogenic bladder with suprapubic catheter. 9. Dysphagia with PEG. 10. Hyperkalemia- resolved Continue Lovenox for deep venous thrombosis prophylaxis and Protonix for peptic ulcer disease prophylaxis. Further recommendations based on clinical course. Plan of care discussed with Dr. Barreto. Subjective 24 Hr Interval Summary Eyes: no complaints ENT: no complaints Respiratory: shortness of breath Cardiovascular: no complaints Gastrointestinal: no complaints Genitourinary: no complaints Musculoskeletal: no complaints Skin: no complaints Neurologic: no complaints Exam/Review of Systems Vital Signs Vitals Vital Signs Date Time Temp Pulse Resp B/P Pulse Ox O2 Delivery O2 Flow Rate FiO2 05/20/16 09:19 5.0 05/20/16 09:00 84 17 109/70 97 05/20/16 08:00 97.9 Trach Collar 05/20/16 04:17 28 Intake and Output 05/19/16 05/19/16 05/20/16 15:00 23:00 07:00 Intake Total 1485.72 ml 1073.87 ml 850 ml Output Total 2205 ml 1235 ml 1265 ml Balance -719.28 ml -161.13 ml -415 ml Exam Constitutional: alert Head: atraumatic Eyes: EOMI, nl sclera Respiratory: diminished breath sounds, other Cardiovascular: nl pulses Gastrointestinal: non-tender, soft Musculoskeletal: muscle weakness Extremities: normal pulses Neurological: nl mental status, other Skin: other Lymph: nontender Results Result Diagram: 05/20/16 0530 05/20/16 0530 Results 24 hrs Laboratory Tests Test 05/20/16 05:30 White Blood Count 5.2 # Red Blood Count 2.85 L Hemoglobin 8.4 L Hematocrit 29.2 L Mean Corpuscular Volume 102.5 H Mean Corpuscular Hemoglobin 29.5 Mean Corpuscular Hemoglobin Concent 28.8 L Red Cell Distribution Width 14.1 Platelet Count 128 L Mean Platelet Volume 12.3 H Neutrophils % 71.9 Lymphocytes % 11.5 L Monocytes % 15.1 H Eosinophils % 1.1 Basophils % 0.2 Nucleated Red Blood Cells % 0.0 Neutrophils # 3.8 Lymphocytes # 0.6 L Monocytes # 0.8 Eosinophils # 0.1 Basophils # 0.0 Nucleated Red Blood Cells # 0.0 Sodium Level 144 Potassium Level 4.8 Chloride Level 113 H Carbon Dioxide Level 21 Anion Gap 15 Blood Urea Nitrogen 66 H Creatinine 2.04 H Glucose Level 109 # Calcium Level 9.0 Medications Medications Current Medications Enoxaparin Sodium (Lovenox) 30 mg DAILY SC Last administered on 05/20/16 08:56 ; Admin Dose 30 MG; Start 05/04/16 at 09:00 Pantoprazole (Protonix Tab) 40 mg DAILY@06 PO Last administered on 05/20/16 05 :31; Admin Dose 40 MG; Start 05/04/16 at 06:00 Citric Acid/ Sodium Citrate (Bicitra) 30 ml TID PO Last administered on 08:54; Admin Dose 30 ML; Start 05/04/16 at 13:00 Zolpidem Tartrate (Ambien) 5 mg HS PRN PO INSOMNIA Last administered on 23:54; Admin Dose 5 MG; Start 05/05/16 at 20:30 IV Flush (NS 10 ml) 10 ml PRN PRN IV IV PROTOCOL; Start 05/06/16 at 12:30 Miscellaneous Information 1 ea NOTE XX ; Start 05/06/16 at 15:30 Glucose (Glutose) 15 gm Q15M PRN PO DECREASED GLUCOSE; Start 05/06/16 at 15:30 Glucose (Glutose) 22.5 gm Q15M PRN PO DECREASED GLUCOSE; Start 05/06/16 at 15: 30 Dextrose (D50w Syringe) 25 ml Q15M PRN IV DECREASED GLUCOSE; Start 05/06/16 at 15:30 Dextrose (D50w Syringe) 50 ml Q15M PRN IV DECREASED GLUCOSE; Start 05/06/16 at 15:30 Glucagon (Glucagen) 1 mg Q15M PRN IM DECREASED GLUCOSE; Start 05/06/16 at 15:30 Glucose (Glutose) 15 gm Q15M PRN BUCCAL DECREASED GLUCOSE; Start 05/06/16 at 15 :30 Gabapentin (Neurontin Liquid) 100 mg TID GTB Last administered on 05/20/16 08: 53; Admin Dose 100 MG; Start 05/07/16 at 22:00 Polyethylene Glycol (Miralax) 17 gm DAILY PRN PO CONSTIPATION; Start 05/10/16 at 14:00 Docusate Sodium (Colace) 100 mg BID PO Last administered on 05/20/16 08:54; Admin Dose 100 MG; Start 05/10/16 at 14:00 Acetaminophen (Tylenol Tab) 650 mg Q6H PRN PO PAIN AND OR ELEVATED TEMP Last administered on 05/15/16 19:59; Admin Dose 650 MG; Start 05/12/16 at 15:00 Silver Nitrate (Silver Nitrate Swabs) 1 stick Q7D TOP Last administered on 09:44; Admin Dose 1 STICK; Start 05/14/16 at 09:30 Hydromorphone HCl 0.5 mg 0.5 mg Q4H PRN IV SEVERE PAIN LEVEL 7-10 Last administered on 05/20/16 09:07; Admin Dose 0.5 MG; Start 05/18/16 at 20:30 Imipenem/ Cilastatin Sodium 100 ml @ 100 mls/hr Q8 IVPB Last administered on 05:30; Admin Dose 100 MLS/HR; Start 05/19/16 at 02:00 Norepinephrine/ Dextrose (Levophed/D5W) 500 ml @ 1.87 mls/hr TITRATE IV ; Start 05/19/16 at 12:30 Linezolid 600 mg 600 mg BID PO Last administered on 05/20/16 08:54; Admin Dose 600 MG; Start 05/19/16 at 21:00 Sodium Chloride (1/2 NS) 1,000 ml @ 70 mls/hr [id number] IV ; Start 05/20/16 at 09 :00 NAE VELAZCO May 20, 2016 10:39
--- NOTE | 2016-05-20 10:45 | CONS ---
Date/Time of Note Date/Time of Note DATE: 05/20/16 TIME: 10:43 Assessment/Plan Assessment/Plan Additional Assessment/Plan Assessment recommendations; next 1. Patient admitted for UTI and sepsis transferred to ICU because of hypotension now off Levophed. 2. Renal insufficiency. 3. Chronic respiratory failure patient weaned down to T-piece. 4. Quadriplegia. Continue current supportive care. Consultation Date/Type/Reason Admit Date/Time May 04, 2016 at 12:27 Initial Consult Date 05/05/16 Type of Consultation: Pulmonary/critical Referring Provider: JOSÉ ANTONIO MIRZA MD 24 HR Interval Summary Free Text/Dictation Condition is stable. He is off the Levophed now. Remains awake and alert. General exam; young male, currently in no distress awake and alert. Exam/Review of Systems Vital Signs Vitals Vital Signs Date Time Temp Pulse Resp B/P Pulse Ox O2 Delivery O2 Flow Rate FiO2 05/20/16 09:19 5.0 05/20/16 09:00 84 17 109/70 97 05/20/16 08:00 97.9 Trach Collar 05/20/16 04:17 28 Intake and Output 05/19/16 05/19/16 05/20/16 15:00 23:00 07:00 Intake Total 1485.72 ml 1073.87 ml 850 ml Output Total 2205 ml 1235 ml 1265 ml Balance -719.28 ml -161.13 ml -415 ml Exam HEENT exam; supple neck, tracheostomy placed attached to a T piece. Insertion site is clean. Patient upper jaw is edentulous. Pupils are midsize reactive to light. No neck masses. Chest exam is; clear to auscultation. S1-S2 audible, no murmurs. Regular rhythm. Abdomen examination; soft, G-tube in place no organomegaly. Bowel sounds audible. Extremity exam; no peripheral edema. [employer]OC[employer]ATE examination a micro patient is awake has stable quadriplegia. Results Result Diagram: 05/20/16 0530 05/20/16 0530 Results 24 hrs Laboratory Tests Test 05/20/16 05:30 White Blood Count 5.2 # Red Blood Count 2.85 L Hemoglobin 8.4 L Hematocrit 29.2 L Mean Corpuscular Volume 102.5 H Mean Corpuscular Hemoglobin 29.5 Mean Corpuscular Hemoglobin Concent 28.8 L Red Cell Distribution Width 14.1 Platelet Count 128 L Mean Platelet Volume 12.3 H Neutrophils % 71.9 Lymphocytes % 11.5 L Monocytes % 15.1 H Eosinophils % 1.1 Basophils % 0.2 Nucleated Red Blood Cells % 0.0 Neutrophils # 3.8 Lymphocytes # 0.6 L Monocytes # 0.8 Eosinophils # 0.1 Basophils # 0.0 Nucleated Red Blood Cells # 0.0 Sodium Level 144 Potassium Level 4.8 Chloride Level 113 H Carbon Dioxide Level 21 Anion Gap 15 Blood Urea Nitrogen 66 H Creatinine 2.04 H Glucose Level 109 # Calcium Level 9.0 Medications Medications Current Medications Enoxaparin Sodium (Lovenox) 30 mg DAILY SC Last administered on 05/20/16 08:56 ; Admin Dose 30 MG; Start 05/04/16 at 09:00 Pantoprazole (Protonix Tab) 40 mg DAILY@06 PO Last administered on 05/20/16 05 :31; Admin Dose 40 MG; Start 05/04/16 at 06:00 Citric Acid/ Sodium Citrate (Bicitra) 30 ml TID PO Last administered on 08:54; Admin Dose 30 ML; Start 05/04/16 at 13:00 Zolpidem Tartrate (Ambien) 5 mg HS PRN PO INSOMNIA Last administered on 23:54; Admin Dose 5 MG; Start 05/05/16 at 20:30 IV Flush (NS 10 ml) 10 ml PRN PRN IV IV PROTOCOL; Start 05/06/16 at 12:30 Miscellaneous Information 1 ea NOTE XX ; Start 05/06/16 at 15:30 Glucose (Glutose) 15 gm Q15M PRN PO DECREASED GLUCOSE; Start 05/06/16 at 15:30 Glucose (Glutose) 22.5 gm Q15M PRN PO DECREASED GLUCOSE; Start 05/06/16 at 15: 30 Dextrose (D50w Syringe) 25 ml Q15M PRN IV DECREASED GLUCOSE; Start 05/06/16 at 15:30 Dextrose (D50w Syringe) 50 ml Q15M PRN IV DECREASED GLUCOSE; Start 05/06/16 at 15:30 Glucagon (Glucagen) 1 mg Q15M PRN IM DECREASED GLUCOSE; Start 05/06/16 at 15:30 Glucose (Glutose) 15 gm Q15M PRN BUCCAL DECREASED GLUCOSE; Start 05/06/16 at 15 :30 Gabapentin (Neurontin Liquid) 100 mg TID GTB Last administered on 05/20/16 08: 53; Admin Dose 100 MG; Start 05/07/16 at 22:00 Polyethylene Glycol (Miralax) 17 gm DAILY PRN PO CONSTIPATION; Start 05/10/16 at 14:00 Docusate Sodium (Colace) 100 mg BID PO Last administered on 05/20/16 08:54; Admin Dose 100 MG; Start 05/10/16 at 14:00 Acetaminophen (Tylenol Tab) 650 mg Q6H PRN PO PAIN AND OR ELEVATED TEMP Last administered on 05/15/16 19:59; Admin Dose 650 MG; Start 05/12/16 at 15:00 Silver Nitrate (Silver Nitrate Swabs) 1 stick Q7D TOP Last administered on 09:44; Admin Dose 1 STICK; Start 05/14/16 at 09:30 Hydromorphone HCl 0.5 mg 0.5 mg Q4H PRN IV SEVERE PAIN LEVEL 7-10 Last administered on 05/20/16 09:07; Admin Dose 0.5 MG; Start 05/18/16 at 20:30 Imipenem/ Cilastatin Sodium 100 ml @ 100 mls/hr Q8 IVPB Last administered on 05:30; Admin Dose 100 MLS/HR; Start 05/19/16 at 02:00 Norepinephrine/ Dextrose (Levophed/D5W) 500 ml @ 1.87 mls/hr TITRATE IV ; Start 05/19/16 at 12:30 Linezolid 600 mg 600 mg BID PO Last administered on 05/20/16 08:54; Admin Dose 600 MG; Start 05/19/16 at 21:00 Sodium Chloride (1/2 NS) 1,000 ml @ 70 mls/hr [id number] IV Last administered on 05/20/16 09:00; Admin Dose 70 MLS/HR; Start 05/20/16 at 09:00 TEX RIVER May 20, 2016 10:45
--- NOTE | 2016-05-20 15:06 | PN ---
DATE: 05/20/2016 SUBJECTIVE: No events overnight. The patient is lying comfortably in bed, off pressors. No fevers . VITAL SIGNS: Temperature 97.9, pulse 78, respirations 17, blood pressure 109/70, saturation 97% on trach collar. LABORATORY DATA: WBC 5.2, H and H 8.4 and 29.2, platelets 128, neutrophils 71.9. BUN 66, creatinin e 2.04. MICROBIOLOGY: Urine culture repeated on 05/18/2016 growing gram-negative rods. Blood cultures laurie in negative. DIAGNOSTICS: Chest x-ray from yesterday revealed improved right basilar atelectasis. Ultrasound of the abdomen showed gallstones without evidence of cholecystitis. INDWELLINGS: Trach, PEG, suprapubic catheter, PICC line placed on 05/06/2016. ANTIMICROBIALS: The patient is on: 1. Imipenem. 2. Zyvox. PHYSICAL EXAMINATION: GENERAL: Chronically ill-appearing, quadriplegic man who is awake, in no distress. HEENT: Head atraumatic, normocephalic. Sclerae anicteric. Buccal mucosa dry. NECK: Supple. Tracheostomy present. CHEST: Rise symmetrical. Breath sounds diminished to bases. HEART: S1, S2. ABDOMEN: Soft, bowel sounds present. EXTREMITIES: Wasted, contractured. ASSESSMENT: 1. Resolving sepsis, status post shock. 2. Urinary tract infection. 3. Quadriplegia. 4. Chronic kidney disease with a history of right nephrectomy. 5. Gallstones. 6. Chronic respiratory failure. PLAN: The patient remains stable. Continue present care, antibiotics. Await for final cultures. Pulmonary recommendations. Dictated By: REGINALDO CHERY CREDIT RISK MANAGER for ANTONELLA ARGUETA/QUE Conf#: [id number] DID#: [id number]
--- NOTE | 2016-05-20 15:30 | PN ---
Date/Time of Note Date/Time of Note DATE: 05/20/16 TIME: 15:30 Assessment/Plan VTE Prophylaxis VTE Prophylaxis Intervention: SCD's Lines/Catheters IV Catheter Type (from Nrsg): PICC Line Central line still needed: No Urinary Cath still in place: Yes (SUPRAPUBIC) Reason Cath still needed: urinary retention Assessment/Plan Assessment/Plan Acute kidney injury Hypotension Sepsis Respiratory Failure Preserved EF on echocardiogram March 02, 2016 History of intermittent Mobitz I > sinus tachy Chronic pain syndrome -s/p hypotension but now fairly stable on levophed - ?sepsis -wean off levophed as tolerated - IV fluids as per our nephrology colleagues. Subjective 24 Hr Interval Summary Free Text/Dictation the patient iwth no cahnge Exam/Review of Systems Vital Signs Vitals Vital Signs Date Time Temp Pulse Resp B/P Pulse Ox O2 Delivery O2 Flow Rate FiO2 05/20/16 15:00 74 23 115/80 96 05/20/16 12:00 98.1 05/20/16 09:19 5.0 05/20/16 08:00 Trach Collar 05/20/16 04:17 28 Intake and Output 05/19/16 05/19/16 05/20/16 15:00 23:00 07:00 Intake Total 1485.72 ml 1073.87 ml 850 ml Output Total 2205 ml 1235 ml 1365 ml Balance -719.28 ml -161.13 ml -515 ml Results Result Diagram: 05/20/16 0530 05/20/16 0530 Results 24 hrs Laboratory Tests Test 05/20/16 05:30 White Blood Count 5.2 # Red Blood Count 2.85 L Hemoglobin 8.4 L Hematocrit 29.2 L Mean Corpuscular Volume 102.5 H Mean Corpuscular Hemoglobin 29.5 Mean Corpuscular Hemoglobin Concent 28.8 L Red Cell Distribution Width 14.1 Platelet Count 128 L Mean Platelet Volume 12.3 H Neutrophils % 71.9 Lymphocytes % 11.5 L Monocytes % 15.1 H Eosinophils % 1.1 Basophils % 0.2 Nucleated Red Blood Cells % 0.0 Neutrophils # 3.8 Lymphocytes # 0.6 L Monocytes # 0.8 Eosinophils # 0.1 Basophils # 0.0 Nucleated Red Blood Cells # 0.0 Sodium Level 144 Potassium Level 4.8 Chloride Level 113 H Carbon Dioxide Level 21 Anion Gap 15 Blood Urea Nitrogen 66 H Creatinine 2.04 H Glucose Level 109 # Calcium Level 9.0 Medications Medications Current Medications Enoxaparin Sodium (Lovenox) 30 mg DAILY SC Last administered on 05/20/16 08:56 ; Admin Dose 30 MG; Start 05/04/16 at 09:00 Pantoprazole (Protonix Tab) 40 mg DAILY@06 PO Last administered on 05/20/16 05 :31; Admin Dose 40 MG; Start 05/04/16 at 06:00 Citric Acid/ Sodium Citrate (Bicitra) 30 ml TID PO Last administered on 14:43; Admin Dose 30 ML; Start 05/04/16 at 13:00 Zolpidem Tartrate (Ambien) 5 mg HS PRN PO INSOMNIA Last administered on 23:54; Admin Dose 5 MG; Start 05/05/16 at 20:30 IV Flush (NS 10 ml) 10 ml PRN PRN IV IV PROTOCOL; Start 05/06/16 at 12:30 Miscellaneous Information 1 ea NOTE XX ; Start 05/06/16 at 15:30 Glucose (Glutose) 15 gm Q15M PRN PO DECREASED GLUCOSE; Start 05/06/16 at 15:30 Glucose (Glutose) 22.5 gm Q15M PRN PO DECREASED GLUCOSE; Start 05/06/16 at 15: 30 Dextrose (D50w Syringe) 25 ml Q15M PRN IV DECREASED GLUCOSE; Start 05/06/16 at 15:30 Dextrose (D50w Syringe) 50 ml Q15M PRN IV DECREASED GLUCOSE; Start 05/06/16 at 15:30 Glucagon (Glucagen) 1 mg Q15M PRN IM DECREASED GLUCOSE; Start 05/06/16 at 15:30 Glucose (Glutose) 15 gm Q15M PRN BUCCAL DECREASED GLUCOSE; Start 05/06/16 at 15 :30 Gabapentin (Neurontin Liquid) 100 mg TID GTB Last administered on 05/20/16 14: 43; Admin Dose 100 MG; Start 05/07/16 at 22:00 Polyethylene Glycol (Miralax) 17 gm DAILY PRN PO CONSTIPATION; Start 05/10/16 at 14:00 Docusate Sodium (Colace) 100 mg BID PO Last administered on 05/20/16 08:54; Admin Dose 100 MG; Start 05/10/16 at 14:00 Acetaminophen (Tylenol Tab) 650 mg Q6H PRN PO PAIN AND OR ELEVATED TEMP Last administered on 05/15/16 19:59; Admin Dose 650 MG; Start 05/12/16 at 15:00 Silver Nitrate (Silver Nitrate Swabs) 1 stick Q7D TOP Last administered on 09:44; Admin Dose 1 STICK; Start 05/14/16 at 09:30 Hydromorphone HCl 0.5 mg 0.5 mg Q4H PRN IV SEVERE PAIN LEVEL 7-10 Last administered on 05/20/16 14:49; Admin Dose 0.5 MG; Start 05/18/16 at 20:30 Imipenem/ Cilastatin Sodium 100 ml @ 100 mls/hr Q8 IVPB Last administered on 14:43; Admin Dose 100 MLS/HR; Start 05/19/16 at 02:00 Norepinephrine/ Dextrose (Levophed/D5W) 500 ml @ 1.87 mls/hr TITRATE IV ; Start 05/19/16 at 12:30 Linezolid 600 mg 600 mg BID PO Last administered on 05/20/16 08:54; Admin Dose 600 MG; Start 05/19/16 at 21:00 Sodium Chloride (1/2 NS) 1,000 ml @ 70 mls/hr [id number] IV Last administered on 05/20/16 09:00; Admin Dose 70 MLS/HR; Start 05/20/16 at 09:00 YIN RUSH MD May 20, 2016 15:30
[2016-05-20] MEDS: ZOLPIDEM 5 MG TAB PO PRN (21:27)
[2016-05-21] MEDS: HYDROmorphONE 1 MG/ML SYG IV PRN ×6 (00:17→21:04)
[2016-05-21] MEDS: PANTOPRAZOLE (EC) 40 MG TAB PO SCH (06:00)
[2016-05-21] MEDS: IMIPENEM-CILAST 500MG IV (PMX) 100 ML IVPB SCH ×2 (06:11→13:13)
[2016-05-21 07:54] LABS: ADD SCAN DIFF NO
[2016-05-21 07:56] LABS: BASOPHILS % 0.4 % (0.0-2.0); EOSINOPHILS # 0.1 10^3/ul (0.0-0.5); EOSINOPHILS % 2.3 % (0.0-7.0); HEMATOCRIT 29.1 % (42.0-52.0); HEMOGLOBIN 8.7 g/dl (14.0-18.0); LYMPHOCYTES # 0.8 10^3/ul (0.8-2.9); LYMPHOCYTES % 16.3 % (15.0-51.0); MEAN CORPUSCULAR HEMOGLOBIN 30.6 pg (29.0-33.0); MEAN CORPUSCULAR HGB CONC 29.9 g/dl (32.0-37.0); MEAN CORPUSCULAR VOLUME 102.5 fl (82.0-101.0); MEAN PLATELET VOLUME 11.6 fl (7.4-10.4); MONOCYTE # 0.8 10^3/ul (0.3-0.9); MONOCYTES % 16.1 % (0.0-11.0); NEUTROPHIL # 3.1 10^3/ul (1.6-7.5); NEUTROPHILS % 64.7 % (39.0-77.0); PLATELET COUNT 154 10^3/UL (140-415); RED BLOOD COUNT 2.84 10^6/ul (4.70-6.10); RED CELL DISTRIBUTION WIDTH 13.8 % (11.5-14.5); WHITE BLOOD COUNT 4.7 10^3/ul (4.8-10.8)
[2016-05-21 08:19] VITALS: BP 118/72; RESP 18
[2016-05-21 08:34] LABS: ALBUMIN 2.9 g/dl (3.3-4.9)
[2016-05-21 08:35] LABS: POTASSIUM 5.1 mmol/L (3.5-5.1)
[2016-05-21 08:37] LABS: ALBUMIN/GLOBULIN RATIO 0.74; CREATININE 1.91 mg/dl (0.61-1.24); TOTAL PROTEIN 6.8 g/dl (6.1-8.1)
--- NOTE | 2016-05-21 08:51 | PN ---
Date/Time of Note Date/Time of Note DATE: 05/21/16 TIME: 08:50 Assessment/Plan VTE Prophylaxis VTE Prophylaxis Intervention: SCD's Lines/Catheters IV Catheter Type (from Nrsg): PICC Line Central line still needed: No Urinary Cath still in place: Yes (suprapubic ) Reason Cath still needed: urinary retention Assessment/Plan Assessment/Plan Acute kidney injury Hypotension Sepsis Respiratory Failure Preserved EF on echocardiogram March 02, 2016 History of intermittent Mobitz I > sinus tachy Chronic pain syndrome -s/p hypotension but now fairly stable -renal insuff stable - IV fluids as per our nephrology colleagues. Subjective 24 Hr Interval Summary Free Text/Dictation The patient with no change Exam/Review of Systems Vital Signs Vitals Vital Signs Date Time Temp Pulse Resp B/P Pulse Ox O2 Delivery O2 Flow Rate FiO2 05/21/16 08:19 98.3 75 18 118/72 96 05/21/16 03:23 Aerosol 5.0 28 Intake and Output 05/20/16 05/20/16 05/21/16 15:00 23:00 07:00 Intake Total 400 ml 980 ml Output Total 2325 ml 1600 ml Balance -1925 ml -620 ml Results Result Diagram: 05/21/16 0735 05/21/16 0735 Results 24 hrs Laboratory Tests Test 05/21/16 07:35 White Blood Count 4.7 L Red Blood Count 2.84 L Hemoglobin 8.7 L Hematocrit 29.1 L Mean Corpuscular Volume 102.5 H Mean Corpuscular Hemoglobin 30.6 Mean Corpuscular Hemoglobin Concent 29.9 L Red Cell Distribution Width 13.8 Platelet Count 154 # Mean Platelet Volume 11.6 H Neutrophils % 64.7 Lymphocytes % 16.3 Monocytes % 16.1 H Eosinophils % 2.3 Basophils % 0.4 Nucleated Red Blood Cells % 0.0 Neutrophils # 3.1 Lymphocytes # 0.8 Monocytes # 0.8 Eosinophils # 0.1 Basophils # 0.0 Nucleated Red Blood Cells # 0.0 Sodium Level 142 Potassium Level 5.1 Chloride Level 112 H Carbon Dioxide Level Pending Anion Gap Pending Blood Urea Nitrogen Pending Creatinine Pending Glucose Level Pending Calcium Level Pending Total Bilirubin Pending Direct Bilirubin Pending Indirect Bilirubin Pending Aspartate Amino Transf (AST/SGOT) Pending Alanine Aminotransferase (ALT/SGPT) Pending Alkaline Phosphatase Pending Total Protein Pending Albumin 2.9 L Globulin Pending Albumin/Globulin Ratio Pending Medications Medications Current Medications Enoxaparin Sodium (Lovenox) 30 mg DAILY SC Last administered on 05/20/16 08:56 ; Admin Dose 30 MG; Start 05/04/16 at 09:00 Pantoprazole (Protonix Tab) 40 mg DAILY@06 PO Last administered on 05/20/16 05 :31; Admin Dose 40 MG; Start 05/04/16 at 06:00 Citric Acid/ Sodium Citrate (Bicitra) 30 ml TID PO Last administered on 21:29; Admin Dose 30 ML; Start 05/04/16 at 13:00 Zolpidem Tartrate (Ambien) 5 mg HS PRN PO INSOMNIA Last administered on 21:27; Admin Dose 5 MG; Start 05/05/16 at 20:30 IV Flush (NS 10 ml) 10 ml PRN PRN IV IV PROTOCOL; Start 05/06/16 at 12:30 Miscellaneous Information 1 ea NOTE XX ; Start 05/06/16 at 15:30 Glucose (Glutose) 15 gm Q15M PRN PO DECREASED GLUCOSE; Start 05/06/16 at 15:30 Glucose (Glutose) 22.5 gm Q15M PRN PO DECREASED GLUCOSE; Start 05/06/16 at 15: 30 Dextrose (D50w Syringe) 25 ml Q15M PRN IV DECREASED GLUCOSE; Start 05/06/16 at 15:30 Dextrose (D50w Syringe) 50 ml Q15M PRN IV DECREASED GLUCOSE; Start 05/06/16 at 15:30 Glucagon (Glucagen) 1 mg Q15M PRN IM DECREASED GLUCOSE; Start 05/06/16 at 15:30 Glucose (Glutose) 15 gm Q15M PRN BUCCAL DECREASED GLUCOSE; Start 05/06/16 at 15 :30 Gabapentin (Neurontin Liquid) 100 mg TID GTB Last administered on 05/20/16 21: 26; Admin Dose 100 MG; Start 05/07/16 at 22:00 Polyethylene Glycol (Miralax) 17 gm DAILY PRN PO CONSTIPATION; Start 05/10/16 at 14:00 Docusate Sodium (Colace) 100 mg BID PO Last administered on 05/20/16 08:54; Admin Dose 100 MG; Start 05/10/16 at 14:00 Acetaminophen (Tylenol Tab) 650 mg Q6H PRN PO PAIN AND OR ELEVATED TEMP Last administered on 05/15/16 19:59; Admin Dose 650 MG; Start 05/12/16 at 15:00 Silver Nitrate (Silver Nitrate Swabs) 1 stick Q7D TOP Last administered on 09:44; Admin Dose 1 STICK; Start 05/14/16 at 09:30 Hydromorphone HCl 0.5 mg 0.5 mg Q4H PRN IV SEVERE PAIN LEVEL 7-10 Last administered on 05/21/16 04:07; Admin Dose 0.5 MG; Start 05/18/16 at 20:30 Imipenem/ Cilastatin Sodium 100 ml @ 100 mls/hr Q8 IVPB Last administered on 06:11; Admin Dose 100 MLS/HR; Start 05/19/16 at 02:00 Norepinephrine/ Dextrose (Levophed/D5W) 500 ml @ 1.87 mls/hr TITRATE IV ; Start 05/19/16 at 12:30 Linezolid 600 mg 600 mg BID PO Last administered on 05/20/16 21:27; Admin Dose 600 MG; Start 05/19/16 at 21:00 Sodium Chloride (1/2 NS) 1,000 ml @ 70 mls/hr [id number] IV Last administered on 05/20/16 19:58; Admin Dose 70 MLS/HR; Start 05/20/16 at 09:00 YIN RUSH MD May 21, 2016 08:51
[2016-05-21] MEDS: ZYVOX 600 MG TAB PO SCH (09:09)
[2016-05-21] MEDS: DOCUSATE SODIUM 100 MG CAP PO SCH ×2 (09:10→21:00)
[2016-05-21] MEDS: ENOXAPARIN 30 MG/0.3 ML SYG SC SCH (09:12)
[2016-05-21] MEDS: CITRIC ACID/NA CITRATE 30 ML CUP PO SCH ×3 (09:19→22:17)
[2016-05-21] MEDS: GABAPENTIN (50 MG/ML PO SYG) GTB SCH ×3 (09:19→21:05)
--- NOTE | 2016-05-21 10:55 | CONS ---
DATE OF ADMISSION: 05/04/2016 DATE OF CONSULTATION: 05/20/2016 TYPE OF CONSULTATION: Gastroenterology REFERRING PHYSICIAN: Hitesh Barreto MD REASON FOR CONSULTATION: Abnormal LFT. HISTORY OF PRESENT ILLNESS: A 40-year-old male with a history of cervical spine injury resulting in paraplegia, vent-dependent respiratory failure, tracheostomy, history of chronic kidney disease, G- tube, suprapubic catheter, who was admitted to the hospital for sepsis, possibly from urinary tract infection. The patient became hypotensive and subsequently got transferred to the intensive care un it. He was on Levophed initially. He responded well to antibiotic. He is off the vent and now has got a T-tube. GI consult was called in for abnormal LFT. The patient has no abdominal pain, no na usea, no vomiting. MEDICATIONS: All his medications reviewed. PHYSICAL EXAMINATION: GENERAL: He is alert, awake, not in distress. VITAL SIGNS: Stable. HEENT: Unremarkable. NECK: Supple, no thyromegaly, no lymphadenopathy. CARDIOVASCULAR: No murmur, gallop or click. LUNGS: Clear. ABDOMEN: Benign. EXTREMITIES: No edema. CENTRAL NERVOUS SYSTEM: Alert, awake and responding to command. LABORATORY DATA: The patient's alkaline phosphatase was 229, but the rest of the LFTs were within n ormal limits. BUN was 66, creatinine 2.4. Ordered ultrasound abdomen which showed gallstones in th e gallbladder. There was no cholecystitis and the bile duct was 5.2 mm in diameter. IMPRESSION: 1. Abnormal liver function tests, etiology is unclear at this point. Maybe it is a fatty liver, ma ybe drug induced. I doubt the patient has any kind of biliary obstruction. 2. Urinary tract infection. 3. Status post trach, off vent. 4. Status post G-tube. 5. Status post suprapubic catheter. 6. Urinary tract infection. 7 Paraplegia. PLAN: Monitor LFT. If it keeps going up, then we will do MRCP, otherwise we will observe him. Dictated By: OPAL BURNETTE/NTS Conf#: [id number] DID#: [id number] CC: OPAL STRATTON MD;*EndCC*
--- NOTE | 2016-05-21 11:04 | PN ---
Date/Time of Note Date/Time of Note DATE: 05/21/16 TIME: 11:03 Assessment/Plan VTE Prophylaxis VTE Prophylaxis Intervention: other Lines/Catheters IV Catheter Type (from Nrs): PICC Line Central line still needed: Yes Urinary Cath still in place: Yes (suprapubic ) Reason Cath still needed: skin wounds contaminated by urine Assessment/Plan Chief Complaint/Hosp Course 1. Polymicrobial Urinary tract infection. Continue antibiotics per ID. Dr. Maciel is following patient in infection disease consultation. 2. Acute kidney injury on top of chronic kidney disease. Status post right nephrectomy. Left nephrolithiasis and renal cyst. Dr. Barker is following in nephrology consultation. Continue to monitor BUN and creatinine. 3. Ventilator-dependent respiratory failure with tracheostomy. is following patient in pulmonary consultation. Continue bronchodilators and ventilatory support. 4. Multiple decubitus ulcers present on admission. Continue zinc sulfate, multivitamins and offloading and current wound care. 5. Cervical spine injury with paraplegia. 6. Bipolar disorder with psychosis. Continue patient on risperidone b.i.d. and Lexapro. 7. Iron deficiency anemia. Continue patient on iron supplements. 8. Neurogenic bladder with suprapubic catheter. 9. Dysphagia with PEG. 10. Hyperkalemia- resolved Problems: Subjective 24 Hr Interval Summary Free Text/Dictation Patient has no complaints, has trach in place Exam/Review of Systems Vital Signs Vitals Vital Signs Date Time Temp Pulse Resp B/P Pulse Ox O2 Delivery O2 Flow Rate FiO2 05/21/16 08:19 98.3 75 18 118/72 96 05/21/16 07:47 Aerosol 5.0 28 Intake and Output 05/20/16 05/20/16 05/21/16 15:00 23:00 07:00 Intake Total 400 ml 980 ml Output Total 2325 ml 1600 ml Balance -1925 ml -620 ml Exam Constitutional: well developed Head: atraumatic, normocephalic Neck: supple Respiratory: clear to auscultation Cardiovascular: regular rate and rhythm Gastrointestinal: non-tender, soft Extremities: normal pulses Results Result Diagram: 05/21/16 0735 05/21/16 0735 Results 24 hrs Laboratory Tests Test 05/21/16 07:35 White Blood Count 4.7 L Red Blood Count 2.84 L Hemoglobin 8.7 L Hematocrit 29.1 L Mean Corpuscular Volume 102.5 H Mean Corpuscular Hemoglobin 30.6 Mean Corpuscular Hemoglobin Concent 29.9 L Red Cell Distribution Width 13.8 Platelet Count 154 # Mean Platelet Volume 11.6 H Neutrophils % 64.7 Lymphocytes % 16.3 Monocytes % 16.1 H Eosinophils % 2.3 Basophils % 0.4 Nucleated Red Blood Cells % 0.0 Neutrophils # 3.1 Lymphocytes # 0.8 Monocytes # 0.8 Eosinophils # 0.1 Basophils # 0.0 Nucleated Red Blood Cells # 0.0 Sodium Level 142 Potassium Level 5.1 Chloride Level 112 H Carbon Dioxide Level 21 Anion Gap 14 Blood Urea Nitrogen 55 H Creatinine 1.91 H Glucose Level 85 Calcium Level 9.0 Total Bilirubin 0.0 L Direct Bilirubin 0.00 Indirect Bilirubin 0.0 Aspartate Amino Transf (AST/SGOT) 22 Alanine Aminotransferase (ALT/SGPT) 24 Alkaline Phosphatase 162 H Total Protein 6.8 Albumin 2.9 L Globulin 3.90 H Albumin/Globulin Ratio 0.74 Medications Medications Current Medications Enoxaparin Sodium (Lovenox) 30 mg DAILY SC Last administered on 05/21/16 09:12 ; Admin Dose 30 MG; Start 05/04/16 at 09:00 Pantoprazole (Protonix Tab) 40 mg DAILY@06 PO Last administered on 05/20/16 05 :31; Admin Dose 40 MG; Start 05/04/16 at 06:00 Citric Acid/ Sodium Citrate (Bicitra) 30 ml TID PO Last administered on 09:19; Admin Dose 30 ML; Start 05/04/16 at 13:00 Zolpidem Tartrate (Ambien) 5 mg HS PRN PO INSOMNIA Last administered on 21:27; Admin Dose 5 MG; Start 05/05/16 at 20:30 IV Flush (NS 10 ml) 10 ml PRN PRN IV IV PROTOCOL; Start 05/06/16 at 12:30 Miscellaneous Information 1 ea NOTE XX ; Start 05/06/16 at 15:30 Glucose (Glutose) 15 gm Q15M PRN PO DECREASED GLUCOSE; Start 05/06/16 at 15:30 Glucose (Glutose) 22.5 gm Q15M PRN PO DECREASED GLUCOSE; Start 05/06/16 at 15: 30 Dextrose (D50w Syringe) 25 ml Q15M PRN IV DECREASED GLUCOSE; Start 05/06/16 at 15:30 Dextrose (D50w Syringe) 50 ml Q15M PRN IV DECREASED GLUCOSE; Start 05/06/16 at 15:30 Glucagon (Glucagen) 1 mg Q15M PRN IM DECREASED GLUCOSE; Start 05/06/16 at 15:30 Glucose (Glutose) 15 gm Q15M PRN BUCCAL DECREASED GLUCOSE; Start 05/06/16 at 15 :30 Gabapentin (Neurontin Liquid) 100 mg TID GTB Last administered on 05/21/16 09: 19; Admin Dose 100 MG; Start 05/07/16 at 22:00 Polyethylene Glycol (Miralax) 17 gm DAILY PRN PO CONSTIPATION; Start 05/10/16 at 14:00 Docusate Sodium (Colace) 100 mg BID PO Last administered on 05/21/16 09:10; Admin Dose 100 MG; Start 05/10/16 at 14:00 Acetaminophen (Tylenol Tab) 650 mg Q6H PRN PO PAIN AND OR ELEVATED TEMP Last administered on 05/15/16 19:59; Admin Dose 650 MG; Start 05/12/16 at 15:00 Silver Nitrate (Silver Nitrate Swabs) 1 stick Q7D TOP Last administered on 09:44; Admin Dose 1 STICK; Start 05/14/16 at 09:30 Hydromorphone HCl 0.5 mg 0.5 mg Q4H PRN IV SEVERE PAIN LEVEL 7-10 Last administered on 05/21/16 09:09; Admin Dose 0.5 MG; Start 05/18/16 at 20:30 Imipenem/ Cilastatin Sodium 100 ml @ 100 mls/hr Q8 IVPB Last administered on 06:11; Admin Dose 100 MLS/HR; Start 05/19/16 at 02:00 Norepinephrine/ Dextrose (Levophed/D5W) 500 ml @ 1.87 mls/hr TITRATE IV ; Start 05/19/16 at 12:30 Linezolid 600 mg 600 mg BID PO Last administered on 05/21/16 09:09; Admin Dose 600 MG; Start 05/19/16 at 21:00 Sodium Chloride (1/2 NS) 1,000 ml @ 70 mls/hr [id number] IV Last administered on 4/14/17at 19:58; Admin Dose 70 MLS/HR; Start 05/20/16 at 09:00 DANAY MUIR May 21, 2016 11:04
[2016-05-21] MEDS: SOD CHLORIDE 0.45% 1,000 ML IV SCH (13:11)
[2016-05-21] MEDS: CEFEPIME 1GM/50 ML (PMX) 50 ML IVPB SCH (15:22)
[2016-05-21] MEDS: SILVER NITRATE SWAB TOP SCH (15:22)
[2016-05-21] MEDS: ALBUTEROL/IPRATROPIUM (NEB) 3 ML AMP HHN PRN (15:53)
--- NOTE | 2016-05-21 19:55 | CONS ---
Date/Time of Note Date/Time of Note DATE: 05/21/16 TIME: 19:53 Assessment/Plan Assessment/Plan Chief Complaint/Hosp Course SUBJECTIVE: No events overnight. The patient is lying comfortably in bed. No fevers. MICROBIOLOGY: Urine culture repeated on 05/18/2016 Jax. Blood cultures remain negative. INDWELLINGS: Trach, PEG, suprapubic catheter, PICC line placed on 05/06/2016. ANTIMICROBIALS: Cefepime PHYSICAL EXAMINATION: GENERAL: Chronically ill-appearing, quadriplegic man who is awake, in no distress. HEENT: Head atraumatic, normocephalic. Sclerae anicteric. Buccal mucosa dry. NECK: Supple. Tracheostomy present. CHEST: Rise symmetrical. Breath sounds diminished to bases. HEART: S1, S2. ABDOMEN: Soft, bowel sounds present. EXTREMITIES: Wasted, contractured. ASSESSMENT: 1. Resolving sepsis, status post shock. 2. Recurrent urinary tract infection. 3. Quadriplegia. 4. Chronic kidney disease with a history of right nephrectomy. 5. Gallstones. 6. Chronic respiratory failure. 7. Abnormal LFT PLAN: The patient remains stable. Continue present care, antibiotics. GI/ pulmonary recommendations. DW staff Problems: Consultation Date/Type/Reason Admit Date/Time May 04, 2016 at 12:27 Initial Consult Date 05/05/16 Type of Consultation: ID Referring Provider: JOSÉ ANTONIO MIRZA MD Exam/Review of Systems Vital Signs Vitals Vital Signs Date Time Temp Pulse Resp B/P Pulse Ox O2 Delivery O2 Flow Rate FiO2 05/21/16 15:53 85 20 98 Aerosol 5.0 28 05/21/16 08:19 98.3 118/72 Intake and Output 05/20/16 05/20/16 05/21/16 15:00 23:00 07:00 Intake Total 400 ml 980 ml Output Total 2325 ml 1600 ml Balance -1925 ml -620 ml Results Result Diagram: 05/21/16 0735 05/21/16 0735 Results 24 hrs Laboratory Tests Test 05/21/16 07:35 White Blood Count 4.7 L Red Blood Count 2.84 L Hemoglobin 8.7 L Hematocrit 29.1 L Mean Corpuscular Volume 102.5 H Mean Corpuscular Hemoglobin 30.6 Mean Corpuscular Hemoglobin Concent 29.9 L Red Cell Distribution Width 13.8 Platelet Count 154 # Mean Platelet Volume 11.6 H Neutrophils % 64.7 Lymphocytes % 16.3 Monocytes % 16.1 H Eosinophils % 2.3 Basophils % 0.4 Nucleated Red Blood Cells % 0.0 Neutrophils # 3.1 Lymphocytes # 0.8 Monocytes # 0.8 Eosinophils # 0.1 Basophils # 0.0 Nucleated Red Blood Cells # 0.0 Sodium Level 142 Potassium Level 5.1 Chloride Level 112 H Carbon Dioxide Level 21 Anion Gap 14 Blood Urea Nitrogen 55 H Creatinine 1.91 H Glucose Level 85 Calcium Level 9.0 Total Bilirubin 0.0 L Direct Bilirubin 0.00 Indirect Bilirubin 0.0 Aspartate Amino Transf (AST/SGOT) 22 Alanine Aminotransferase (ALT/SGPT) 24 Alkaline Phosphatase 162 H Total Protein 6.8 Albumin 2.9 L Globulin 3.90 H Albumin/Globulin Ratio 0.74 Medications Medications Current Medications Enoxaparin Sodium (Lovenox) 30 mg DAILY SC Last administered on 05/21/16 09:12 ; Admin Dose 30 MG; Start 05/04/16 at 09:00 Pantoprazole (Protonix Tab) 40 mg DAILY@06 PO Last administered on 05/20/16 05 :31; Admin Dose 40 MG; Start 05/04/16 at 06:00 Citric Acid/ Sodium Citrate (Bicitra) 30 ml TID PO Last administered on 13:11; Admin Dose 30 ML; Start 05/04/16 at 13:00 Zolpidem Tartrate (Ambien) 5 mg HS PRN PO INSOMNIA Last administered on 21:27; Admin Dose 5 MG; Start 05/05/16 at 20:30 IV Flush (NS 10 ml) 10 ml PRN PRN IV IV PROTOCOL; Start 05/06/16 at 12:30 Miscellaneous Information 1 ea NOTE XX ; Start 05/06/16 at 15:30 Glucose (Glutose) 15 gm Q15M PRN PO DECREASED GLUCOSE; Start 05/06/16 at 15:30 Glucose (Glutose) 22.5 gm Q15M PRN PO DECREASED GLUCOSE; Start 05/06/16 at 15: 30 Dextrose (D50w Syringe) 25 ml Q15M PRN IV DECREASED GLUCOSE; Start 05/06/16 at 15:30 Dextrose (D50w Syringe) 50 ml Q15M PRN IV DECREASED GLUCOSE; Start 05/06/16 at 15:30 Glucagon (Glucagen) 1 mg Q15M PRN IM DECREASED GLUCOSE; Start 05/06/16 at 15:30 Glucose (Glutose) 15 gm Q15M PRN BUCCAL DECREASED GLUCOSE; Start 05/06/16 at 15 :30 Gabapentin (Neurontin Liquid) 100 mg TID GTB Last administered on 05/21/16 13: 11; Admin Dose 100 MG; Start 05/07/16 at 22:00 Polyethylene Glycol (Miralax) 17 gm DAILY PRN PO CONSTIPATION; Start 05/10/16 at 14:00 Docusate Sodium (Colace) 100 mg BID PO Last administered on 05/21/16 09:10; Admin Dose 100 MG; Start 05/10/16 at 14:00 Acetaminophen (Tylenol Tab) 650 mg Q6H PRN PO PAIN AND OR ELEVATED TEMP Last administered on 05/15/16 19:59; Admin Dose 650 MG; Start 05/12/16 at 15:00 Silver Nitrate (Silver Nitrate Swabs) 1 stick Q7D TOP Last administered on 05/21 15:22; Admin Dose 1 STICK; Start 05/14/16 at 09:30 Hydromorphone HCl 0.5 mg 0.5 mg Q4H PRN IV SEVERE PAIN LEVEL 7-10 Last administered on 05/21/16 17:12; Admin Dose 0.5 MG; Start 05/18/16 at 20:30 Norepinephrine 16 mg/Dextrose 500 ml @ 1.87 mls/hr TITRATE IV ; Start 05/19/16 at 12:30 Sodium Chloride 1,000 ml @ 70 mls/hr [id number] IV Last administered on 13:11; Admin Dose 70 MLS/HR; Start 05/20/16 at 09:00 Cefepime HCl (Maxipime 1gm/50 ml (Pmx)) 50 ml @ 100 mls/hr DAILY IVPB Last administered on 05/21/16 15:22; Admin Dose 100 MLS/HR; Start 05/21/16 at 14:00 REGINALDO CHERY NP May 21, 2016 19:55
[2016-05-21 20:07] VITALS: BP 106/72; RESP 16
--- NOTE | 2016-05-21 22:01 | CONS ---
Date/Time of Note Date/Time of Note DATE: 05/21/16 TIME: 21:59 Assessment/Plan Assessment/Plan Additional Assessment/Plan 1. Septic shock- s/p levophed 2. BELINDA due to ATN due to septic shock 3. acute hyperkalemia due to BELINDA due to ATN - now improved 3. History of a previous cardiac arrest, had a G-tube and tracheostomy in place. 4. History of coronary artery disease, status post coronary artery bypass graft. 5. History of previous aortic valve replacement, bioprosthetic valve PLAN: Cr improved to 1.94, pt made good urine output 2.2 liter, BP stable, off levophed Electrolytes stable today, will monitor it will follow up Consultation Date/Type/Reason Initial Consult Date 05/03/2016 Type of Consultation: NEPHROLOGY Referring Provider: JOSÉ ANTONIO MIRZA MD 24 HR Interval Summary Free Text/Dictation BUN/Cr improving, BP stable, no acute events Exam/Review of Systems Vital Signs Vitals Vital Signs Date Time Temp Pulse Resp B/P Pulse Ox O2 Delivery O2 Flow Rate FiO2 05/21/16 20:07 98.5 67 16 106/72 96 05/21/16 20:00 5.0 28 05/21/16 20:00 Aerosol Intake and Output 05/20/16 05/20/16 05/21/16 15:00 23:00 07:00 Intake Total 400 ml 980 ml Output Total 2325 ml 1600 ml Balance -1925 ml -620 ml Exam GENERAL: Chronically ill-appearing, quadriplegic man who is awake, in no distress. HEENT: Head atraumatic, normocephalic. Sclerae anicteric. Buccal mucosa dry. NECK: Supple. Tracheostomy present. CHEST: Rise symmetrical. Breath sounds diminished to bases. HEART: S1, S2. ABDOMEN: Soft, bowel sounds present. EXTREMITIES: Wasted, contractured. Results Result Diagram: 05/21/16 0735 05/21/16 0735 Results 24 hrs Laboratory Tests Test 05/21/16 07:35 White Blood Count 4.7 L Red Blood Count 2.84 L Hemoglobin 8.7 L Hematocrit 29.1 L Mean Corpuscular Volume 102.5 H Mean Corpuscular Hemoglobin 30.6 Mean Corpuscular Hemoglobin Concent 29.9 L Red Cell Distribution Width 13.8 Platelet Count 154 # Mean Platelet Volume 11.6 H Neutrophils % 64.7 Lymphocytes % 16.3 Monocytes % 16.1 H Eosinophils % 2.3 Basophils % 0.4 Nucleated Red Blood Cells % 0.0 Neutrophils # 3.1 Lymphocytes # 0.8 Monocytes # 0.8 Eosinophils # 0.1 Basophils # 0.0 Nucleated Red Blood Cells # 0.0 Sodium Level 142 Potassium Level 5.1 Chloride Level 112 H Carbon Dioxide Level 21 Anion Gap 14 Blood Urea Nitrogen 55 H Creatinine 1.91 H Glucose Level 85 Calcium Level 9.0 Total Bilirubin 0.0 L Direct Bilirubin 0.00 Indirect Bilirubin 0.0 Aspartate Amino Transf (AST/SGOT) 22 Alanine Aminotransferase (ALT/SGPT) 24 Alkaline Phosphatase 162 H Total Protein 6.8 Albumin 2.9 L Globulin 3.90 H Albumin/Globulin Ratio 0.74 Medications Medications Current Medications Enoxaparin Sodium (Lovenox) 30 mg DAILY SC Last administered on 05/21/16 09:12 ; Admin Dose 30 MG; Start 05/04/16 at 09:00 Pantoprazole (Protonix Tab) 40 mg DAILY@06 PO Last administered on 05/20/16 05 :31; Admin Dose 40 MG; Start 05/04/16 at 06:00 Citric Acid/ Sodium Citrate (Bicitra) 30 ml TID PO Last administered on 13:11; Admin Dose 30 ML; Start 05/04/16 at 13:00 Zolpidem Tartrate (Ambien) 5 mg HS PRN PO INSOMNIA Last administered on 21:27; Admin Dose 5 MG; Start 05/05/16 at 20:30 IV Flush (NS 10 ml) 10 ml PRN PRN IV IV PROTOCOL; Start 05/06/16 at 12:30 Miscellaneous Information 1 ea NOTE XX ; Start 05/06/16 at 15:30 Glucose (Glutose) 15 gm Q15M PRN PO DECREASED GLUCOSE; Start 05/06/16 at 15:30 Glucose (Glutose) 22.5 gm Q15M PRN PO DECREASED GLUCOSE; Start 05/06/16 at 15: 30 Dextrose (D50w Syringe) 25 ml Q15M PRN IV DECREASED GLUCOSE; Start 05/06/16 at 15:30 Dextrose (D50w Syringe) 50 ml Q15M PRN IV DECREASED GLUCOSE; Start 05/06/16 at 15:30 Glucagon (Glucagen) 1 mg Q15M PRN IM DECREASED GLUCOSE; Start 05/06/16 at 15:30 Glucose (Glutose) 15 gm Q15M PRN BUCCAL DECREASED GLUCOSE; Start 05/06/16 at 15 :30 Gabapentin (Neurontin Liquid) 100 mg TID GTB Last administered on 05/21/16 21: 05; Admin Dose 100 MG; Start 05/07/16 at 22:00 Polyethylene Glycol (Miralax) 17 gm DAILY PRN PO CONSTIPATION; Start 05/10/16 at 14:00 Docusate Sodium (Colace) 100 mg BID PO Last administered on 05/21/16 09:10; Admin Dose 100 MG; Start 05/10/16 at 14:00 Acetaminophen (Tylenol Tab) 650 mg Q6H PRN PO PAIN AND OR ELEVATED TEMP Last administered on 05/15/16 19:59; Admin Dose 650 MG; Start 05/12/16 at 15:00 Silver Nitrate (Silver Nitrate Swabs) 1 stick Q7D TOP Last administered on 05/21 15:22; Admin Dose 1 STICK; Start 05/14/16 at 09:30 Hydromorphone HCl 0.5 mg 0.5 mg Q4H PRN IV SEVERE PAIN LEVEL 7-10 Last administered on 05/21/16 21:04; Admin Dose 0.5 MG; Start 05/18/16 at 20:30 Norepinephrine 16 mg/Dextrose 500 ml @ 1.87 mls/hr TITRATE IV ; Start 05/19/16 at 12:30 Sodium Chloride 1,000 ml @ 70 mls/hr [id number] IV Last administered on 13:11; Admin Dose 70 MLS/HR; Start 05/20/16 at 09:00 Cefepime HCl (Maxipime 1gm/50 ml (Pmx)) 50 ml @ 100 mls/hr DAILY IVPB Last administered on 05/21/16 15:22; Admin Dose 100 MLS/HR; Start 05/21/16 at 14:00 TIARA CISNEROS MD May 21, 2016 22:01
[2016-05-21] MEDS: ZOLPIDEM 5 MG TAB PO PRN (22:08)
[2016-05-22] MEDS: HYDROmorphONE 1 MG/ML SYG IV PRN ×6 (01:06→23:41)
[2016-05-22] MEDS: SOD CHLORIDE 0.45% 1,000 ML IV SCH ×4 (03:54→21:22)
[2016-05-22] MEDS: PANTOPRAZOLE (EC) 40 MG TAB PO SCH (06:00)
[2016-05-22] MEDS: CITRIC ACID/NA CITRATE 30 ML CUP PO SCH ×3 (08:46→21:13)
[2016-05-22] MEDS: CEFEPIME 1GM/50 ML (PMX) 50 ML IVPB SCH (08:47)
[2016-05-22] MEDS: GABAPENTIN (50 MG/ML PO SYG) GTB SCH ×3 (08:47→21:13)
[2016-05-22] MEDS: DOCUSATE SODIUM 100 MG CAP PO SCH (08:47)
[2016-05-22] MEDS: ENOXAPARIN 30 MG/0.3 ML SYG SC SCH (08:51)
[2016-05-22 08:52] VITALS: BP 109/73; PULSE 73; RESP 18
--- NOTE | 2016-05-22 11:08 | CONS ---
Date/Time of Note Date/Time of Note DATE: 05/22/16 TIME: 11:06 Assessment/Plan Assessment/Plan Additional Assessment/Plan 1. Septic shock- s/p levophed 2. BELINDA due to ATN due to septic shock 3. acute hyperkalemia due to BELINDA due to ATN - now improved 3. History of a previous cardiac arrest, had a G-tube and tracheostomy in place. 4. History of coronary artery disease, status post coronary artery bypass graft. 5. History of previous aortic valve replacement, bioprosthetic valve PLAN: Cr improved to 1.94 yesterday, no labs today to review yet , pt made good urine output 2.2 liter, BP stable will follow up Consultation Date/Type/Reason Initial Consult Date 05/03/2016 Type of Consultation: NEPHROLOGY Referring Provider: JOSÉ ANTONIO MIRZA MD 24 HR Interval Summary Free Text/Dictation no acute events, BP stable Cr 1.91 yesterday , no labs today to review yet Exam/Review of Systems Vital Signs Vitals Vital Signs Date Time Temp Pulse Resp B/P Pulse Ox O2 Delivery O2 Flow Rate FiO2 05/22/16 08:52 97.7 73 18 109/73 94 Trach Collar 05/22/16 08:15 5.0 05/22/16 08:07 28 Intake and Output 05/21/16 05/21/16 05/22/16 15:00 23:00 07:00 Intake Total 540 ml 1360 ml 950 ml Output Total 2200 ml 1400 ml Balance 540 ml -840 ml -450 ml Exam GENERAL: Chronically ill-appearing, quadriplegic man who is awake, in no distress. HEENT: Head atraumatic, normocephalic. Sclerae anicteric. Buccal mucosa dry. NECK: Supple. Tracheostomy present. CHEST: Rise symmetrical. Breath sounds diminished to bases. HEART: S1, S2. ABDOMEN: Soft, bowel sounds present. EXTREMITIES: Wasted, contractured. Results Result Diagram: 05/21/16 0735 05/21/16 0735 Medications Medications Current Medications Enoxaparin Sodium (Lovenox) 30 mg DAILY SC Last administered on 05/21/16 09:12 ; Admin Dose 30 MG; Start 05/04/16 at 09:00 Pantoprazole (Protonix Tab) 40 mg DAILY@06 PO Last administered on 05/20/16 05 :31; Admin Dose 40 MG; Start 05/04/16 at 06:00 Citric Acid/ Sodium Citrate (Bicitra) 30 ml TID PO Last administered on 08:46; Admin Dose 30 ML; Start 05/04/16 at 13:00 Zolpidem Tartrate (Ambien) 5 mg HS PRN PO INSOMNIA Last administered on 22:08; Admin Dose 5 MG; Start 05/05/16 at 20:30 IV Flush (NS 10 ml) 10 ml PRN PRN IV IV PROTOCOL; Start 05/06/16 at 12:30 Miscellaneous Information 1 ea NOTE XX ; Start 05/06/16 at 15:30 Glucose (Glutose) 15 gm Q15M PRN PO DECREASED GLUCOSE; Start 05/06/16 at 15:30 Glucose (Glutose) 22.5 gm Q15M PRN PO DECREASED GLUCOSE; Start 05/06/16 at 15: 30 Dextrose (D50w Syringe) 25 ml Q15M PRN IV DECREASED GLUCOSE; Start 05/06/16 at 15:30 Dextrose (D50w Syringe) 50 ml Q15M PRN IV DECREASED GLUCOSE; Start 05/06/16 at 15:30 Glucagon (Glucagen) 1 mg Q15M PRN IM DECREASED GLUCOSE; Start 05/06/16 at 15:30 Glucose (Glutose) 15 gm Q15M PRN BUCCAL DECREASED GLUCOSE; Start 05/06/16 at 15 :30 Gabapentin (Neurontin Liquid) 100 mg TID GTB Last administered on 05/22/16 08: 47; Admin Dose 100 MG; Start 05/07/16 at 22:00 Polyethylene Glycol (Miralax) 17 gm DAILY PRN PO CONSTIPATION; Start 05/10/16 at 14:00 Docusate Sodium (Colace) 100 mg BID PO Last administered on 05/22/16 08:47; Admin Dose 100 MG; Start 05/10/16 at 14:00 Acetaminophen (Tylenol Tab) 650 mg Q6H PRN PO PAIN AND OR ELEVATED TEMP Last administered on 05/15/16 19:59; Admin Dose 650 MG; Start 05/12/16 at 15:00 Silver Nitrate (Silver Nitrate Swabs) 1 stick Q7D TOP Last administered on 05/21 15:22; Admin Dose 1 STICK; Start 05/14/16 at 09:30 Hydromorphone HCl 0.5 mg 0.5 mg Q4H PRN IV SEVERE PAIN LEVEL 7-10 Last administered on 05/22/16 10:09; Admin Dose 0.5 MG; Start 05/18/16 at 20:30 Norepinephrine 16 mg/Dextrose 500 ml @ 1.87 mls/hr TITRATE IV ; Start 05/19/16 at 12:30 Sodium Chloride 1,000 ml @ 70 mls/hr [id number] IV Last administered on 06:01; Admin Dose 70 MLS/HR; Start 05/20/16 at 09:00 Cefepime HCl (Maxipime 1gm/50 ml (Pmx)) 50 ml @ 100 mls/hr DAILY IVPB Last administered on 05/22/16 08:47; Admin Dose 100 MLS/HR; Start 05/21/16 at 14:00 TIARA CISNEROS MD May 22, 2016 11:08
--- NOTE | 2016-05-22 11:53 | PN ---
Date/Time of Note Date/Time of Note DATE: 05/22/16 TIME: 11:52 Assessment/Plan VTE Prophylaxis VTE Prophylaxis Intervention: SCD's Lines/Catheters IV Catheter Type (from Nrsg): PICC Line Central line still needed: No Urinary Cath still in place: No Assessment/Plan Assessment/Plan Acute kidney injury Hypotension Sepsis Respiratory Failure Preserved EF on echocardiogram March 02, 2016 History of intermittent Mobitz I > sinus tachy Chronic pain syndrome -s/p hypotension but now fairly stable -renal insuff stable - IV fluids as per our nephrology colleagues. Subjective 24 Hr Interval Summary Free Text/Dictation the aptient with no change Exam/Review of Systems Vital Signs Vitals Vital Signs Date Time Temp Pulse Resp B/P Pulse Ox O2 Delivery O2 Flow Rate FiO2 05/22/16 08:52 97.7 73 18 109/73 94 Trach Collar 05/22/16 08:15 5.0 05/22/16 08:07 28 Intake and Output 05/21/16 05/21/16 05/22/16 15:00 23:00 07:00 Intake Total 540 ml 1360 ml 950 ml Output Total 2200 ml 1400 ml Balance 540 ml -840 ml -450 ml Results Result Diagram: 05/21/16 0735 05/21/16 0735 Medications Medications Current Medications Enoxaparin Sodium (Lovenox) 30 mg DAILY SC Last administered on 05/21/16 09:12 ; Admin Dose 30 MG; Start 05/04/16 at 09:00 Pantoprazole (Protonix Tab) 40 mg DAILY@06 PO Last administered on 05/20/16 05 :31; Admin Dose 40 MG; Start 05/04/16 at 06:00 Citric Acid/ Sodium Citrate (Bicitra) 30 ml TID PO Last administered on 08:46; Admin Dose 30 ML; Start 05/04/16 at 13:00 Zolpidem Tartrate (Ambien) 5 mg HS PRN PO INSOMNIA Last administered on 22:08; Admin Dose 5 MG; Start 05/05/16 at 20:30 IV Flush (NS 10 ml) 10 ml PRN PRN IV IV PROTOCOL; Start 05/06/16 at 12:30 Miscellaneous Information 1 ea NOTE XX ; Start 05/06/16 at 15:30 Glucose (Glutose) 15 gm Q15M PRN PO DECREASED GLUCOSE; Start 05/06/16 at 15:30 Glucose (Glutose) 22.5 gm Q15M PRN PO DECREASED GLUCOSE; Start 05/06/16 at 15: 30 Dextrose (D50w Syringe) 25 ml Q15M PRN IV DECREASED GLUCOSE; Start 05/06/16 at 15:30 Dextrose (D50w Syringe) 50 ml Q15M PRN IV DECREASED GLUCOSE; Start 05/06/16 at 15:30 Glucagon (Glucagen) 1 mg Q15M PRN IM DECREASED GLUCOSE; Start 05/06/16 at 15:30 Glucose (Glutose) 15 gm Q15M PRN BUCCAL DECREASED GLUCOSE; Start 05/06/16 at 15 :30 Gabapentin (Neurontin Liquid) 100 mg TID GTB Last administered on 05/22/16 08: 47; Admin Dose 100 MG; Start 05/07/16 at 22:00 Polyethylene Glycol (Miralax) 17 gm DAILY PRN PO CONSTIPATION; Start 05/10/16 at 14:00 Docusate Sodium (Colace) 100 mg BID PO Last administered on 05/22/16 08:47; Admin Dose 100 MG; Start 05/10/16 at 14:00 Acetaminophen (Tylenol Tab) 650 mg Q6H PRN PO PAIN AND OR ELEVATED TEMP Last administered on 05/15/16 19:59; Admin Dose 650 MG; Start 05/12/16 at 15:00 Silver Nitrate (Silver Nitrate Swabs) 1 stick Q7D TOP Last administered on 05/21 15:22; Admin Dose 1 STICK; Start 05/14/16 at 09:30 Hydromorphone HCl 0.5 mg 0.5 mg Q4H PRN IV SEVERE PAIN LEVEL 7-10 Last administered on 05/22/16 10:09; Admin Dose 0.5 MG; Start 05/18/16 at 20:30 Norepinephrine 16 mg/Dextrose 500 ml @ 1.87 mls/hr TITRATE IV ; Start 05/19/16 at 12:30 Sodium Chloride 1,000 ml @ 70 mls/hr [id number] IV Last administered on 06:01; Admin Dose 70 MLS/HR; Start 05/20/16 at 09:00 Cefepime HCl (Maxipime 1gm/50 ml (Pmx)) 50 ml @ 100 mls/hr DAILY IVPB Last administered on 05/22/16t 08:47; Admin Dose 100 MLS/HR; Start 05/21/16 at 14:00 YIN RUSH MD May 22, 2016 11:53
--- NOTE | 2016-05-22 12:02 | PN ---
Date/Time of Note Date/Time of Note DATE: 05/22/16 TIME: 12:02 Assessment/Plan VTE Prophylaxis VTE Prophylaxis Intervention: other Lines/Catheters IV Catheter Type (from [facility]): PICC Line Central line still needed: Yes Urinary Cath still in place: No Assessment/Plan Chief Complaint/Hosp Course 1. Polymicrobial Urinary tract infection. Continue antibiotics per ID. Dr. Maciel is following patient in infection disease consultation. 2. Acute kidney injury on top of chronic kidney disease. Status post right nephrectomy. Left nephrolithiasis and renal cyst. Dr. Barker is following in nephrology consultation. Continue to monitor BUN and creatinine. 3. Ventilator-dependent respiratory failure with tracheostomy. is following patient in pulmonary consultation. Continue bronchodilators and ventilatory support. 4. Multiple decubitus ulcers present on admission. Continue zinc sulfate, multivitamins and offloading and current wound care. 5. Cervical spine injury with paraplegia. 6. Bipolar disorder with psychosis. Continue patient on risperidone b.i.d. and Lexapro. 7. Iron deficiency anemia. Continue patient on iron supplements. 8. Neurogenic bladder with suprapubic catheter. 9. Dysphagia with PEG. 10. Hyperkalemia- resolved Problems: Subjective 24 Hr Interval Summary Free Text/Dictation Patient has no complaints Exam/Review of Systems Vital Signs Vitals Vital Signs Date Time Temp Pulse Resp B/P Pulse Ox O2 Delivery O2 Flow Rate FiO2 05/22/16 08:52 97.7 73 18 109/73 94 Trach Collar 05/22/16 08:15 5.0 05/22/16 08:07 28 Intake and Output 05/21/16 05/21/16 05/22/16 15:00 23:00 07:00 Intake Total 540 ml 1360 ml 950 ml Output Total 2200 ml 1400 ml Balance 540 ml -840 ml -450 ml Exam Constitutional: well developed Head: atraumatic, normocephalic Neck: supple Respiratory: clear to auscultation Cardiovascular: regular rate and rhythm Gastrointestinal: non-tender, soft Extremities: normal pulses Results Result Diagram: 05/21/16 0735 05/21/16 0735 Medications Medications Current Medications Enoxaparin Sodium (Lovenox) 30 mg DAILY SC Last administered on 05/21/16t 09:12 ; Admin Dose 30 MG; Start 05/04/16 at 09:00 Pantoprazole (Protonix Tab) 40 mg DAILY@06 PO Last administered on 05/20/16 05 :31; Admin Dose 40 MG; Start 05/04/16 at 06:00 Citric Acid/ Sodium Citrate (Bicitra) 30 ml TID PO Last administered on 08:46; Admin Dose 30 ML; Start 05/04/16 at 13:00 Zolpidem Tartrate (Ambien) 5 mg HS PRN PO INSOMNIA Last administered on 22:08; Admin Dose 5 MG; Start 05/05/16 at 20:30 IV Flush (NS 10 ml) 10 ml PRN PRN IV IV PROTOCOL; Start 05/06/16 at 12:30 Miscellaneous Information 1 ea NOTE XX ; Start 05/06/16 at 15:30 Glucose (Glutose) 15 gm Q15M PRN PO DECREASED GLUCOSE; Start 05/06/16 at 15:30 Glucose (Glutose) 22.5 gm Q15M PRN PO DECREASED GLUCOSE; Start 05/06/16 at 15: 30 Dextrose (D50w Syringe) 25 ml Q15M PRN IV DECREASED GLUCOSE; Start 05/06/16 at 15:30 Dextrose (D50w Syringe) 50 ml Q15M PRN IV DECREASED GLUCOSE; Start 05/06/16 at 15:30 Glucagon (Glucagen) 1 mg Q15M PRN IM DECREASED GLUCOSE; Start 05/06/16 at 15:30 Glucose (Glutose) 15 gm Q15M PRN BUCCAL DECREASED GLUCOSE; Start 05/06/16 at 15 :30 Gabapentin (Neurontin Liquid) 100 mg TID GTB Last administered on 05/22/16 08: 47; Admin Dose 100 MG; Start 05/07/16 at 22:00 Polyethylene Glycol (Miralax) 17 gm DAILY PRN PO CONSTIPATION; Start 05/10/16 at 14:00 Docusate Sodium (Colace) 100 mg BID PO Last administered on 05/22/16 08:47; Admin Dose 100 MG; Start 05/10/16 at 14:00 Acetaminophen (Tylenol Tab) 650 mg Q6H PRN PO PAIN AND OR ELEVATED TEMP Last administered on 05/15/16 19:59; Admin Dose 650 MG; Start 05/12/16 at 15:00 Silver Nitrate (Silver Nitrate Swabs) 1 stick Q7D TOP Last administered on 05/21 15:22; Admin Dose 1 STICK; Start 05/14/16 at 09:30 Hydromorphone HCl 0.5 mg 0.5 mg Q4H PRN IV SEVERE PAIN LEVEL 7-10 Last administered on 05/22/16 10:09; Admin Dose 0.5 MG; Start 05/18/16 at 20:30 Norepinephrine 16 mg/Dextrose 500 ml @ 1.87 mls/hr TITRATE IV ; Start 05/19/16 at 12:30 Sodium Chloride 1,000 ml @ 70 mls/hr [id number] IV Last administered on 06:01; Admin Dose 70 MLS/HR; Start 05/20/16 at 09:00 Cefepime HCl (Maxipime 1gm/50 ml (Pmx)) 50 ml @ 100 mls/hr DAILY IVPB Last administered on 05/22/16 08:47; Admin Dose 100 MLS/HR; Start 05/21/16 at 14:00 DANAY MUIR May 22, 2016 12:02
[2016-05-22] MEDS: ALBUTEROL/IPRATROPIUM (NEB) 3 ML AMP HHN PRN (13:05)
--- NOTE | 2016-05-22 19:45 | CONS ---
Date/Time of Note Date/Time of Note DATE: 05/22/16 TIME: 19:45 Assessment/Plan Assessment/Plan Chief Complaint/Hosp Course SUBJECTIVE: No events overnight. Alert, denies pain, lying comfortably in bed. No fevers. MICROBIOLOGY: Urine culture repeated on 05/18/2016 Providencia. Blood cultures remain negative. INDWELLINGS: Trach, PEG, suprapubic catheter, PICC line placed on 05/06/2016. ANTIMICROBIALS: Cefepime PHYSICAL EXAMINATION: GENERAL: Chronically ill-appearing, quadriplegic man who is awake, in no distress. HEENT: Head atraumatic, normocephalic. Sclerae anicteric. Buccal mucosa dry. NECK: Supple. Tracheostomy present. CHEST: Rise symmetrical. Breath sounds diminished to bases. HEART: S1, S2. ABDOMEN: Soft, bowel sounds present. EXTREMITIES: Wasted, contractured. ASSESSMENT: 1. Resolving sepsis, status post shock. 2. Recurrent urinary tract infection. 3. Quadriplegia. 4. Chronic kidney disease with a history of right nephrectomy. 5. Gallstones. 6. Chronic respiratory failure. 7. Abnormal LFT PLAN: The patient remains stable. Continue present care, antibiotics. GI/ pulmonary recommendations. DW staff Problems: Consultation Date/Type/Reason Admit Date/Time May 04, 2016 at 12:27 Initial Consult Date 05/05/16 Type of Consultation: ID Referring Provider: JOSÉ ANTONIO MIRZA MD Exam/Review of Systems Vital Signs Vitals Vital Signs Date Time Temp Pulse Resp B/P Pulse Ox O2 Delivery O2 Flow Rate FiO2 05/22/16 16:34 79 20 95 Aerosol Mask 5.0 28 T Tube 05/22/16 08:52 97.7 109/73 Intake and Output 05/21/16 05/21/16 05/22/16 14:59 22:59 06:59 Intake Total 540 ml 1360 ml 950 ml Output Total 2200 ml 1400 ml Balance 540 ml -840 ml -450 ml Results Result Diagram: 05/21/16 0735 05/21/16 0735 Medications Medications Current Medications Enoxaparin Sodium (Lovenox) 30 mg DAILY SC Last administered on 05/21/16t 09:12 ; Admin Dose 30 MG; Start 05/04/16 at 09:00 Pantoprazole (Protonix Tab) 40 mg DAILY@06 PO Last administered on 05/20/16 05 :31; Admin Dose 40 MG; Start 05/04/16 at 06:00 Citric Acid/ Sodium Citrate (Bicitra) 30 ml TID PO Last administered on 08:46; Admin Dose 30 ML; Start 05/04/16 at 13:00 Zolpidem Tartrate (Ambien) 5 mg HS PRN PO INSOMNIA Last administered on 22:08; Admin Dose 5 MG; Start 05/05/16 at 20:30 IV Flush (NS 10 ml) 10 ml PRN PRN IV IV PROTOCOL; Start 05/06/16 at 12:30 Miscellaneous Information 1 ea NOTE XX ; Start 05/06/16 at 15:30 Glucose (Glutose) 15 gm Q15M PRN PO DECREASED GLUCOSE; Start 05/06/16 at 15:30 Glucose (Glutose) 22.5 gm Q15M PRN PO DECREASED GLUCOSE; Start 05/06/16 at 15: 30 Dextrose (D50w Syringe) 25 ml Q15M PRN IV DECREASED GLUCOSE; Start 05/06/16 at 15:30 Dextrose (D50w Syringe) 50 ml Q15M PRN IV DECREASED GLUCOSE; Start 05/06/16 at 15:30 Glucagon (Glucagen) 1 mg Q15M PRN IM DECREASED GLUCOSE; Start 05/06/16 at 15:30 Glucose (Glutose) 15 gm Q15M PRN BUCCAL DECREASED GLUCOSE; Start 05/06/16 at 15 :30 Gabapentin (Neurontin Liquid) 100 mg TID GTB Last administered on 05/22/16 13: 17; Admin Dose 100 MG; Start 05/07/16 at 22:00 Polyethylene Glycol (Miralax) 17 gm DAILY PRN PO CONSTIPATION; Start 05/10/16 at 14:00 Acetaminophen (Tylenol Tab) 650 mg Q6H PRN PO PAIN AND OR ELEVATED TEMP Last administered on 05/15/16 19:59; Admin Dose 650 MG; Start 05/12/16 at 15:00 Silver Nitrate (Silver Nitrate Swabs) 1 stick Q7D TOP Last administered on 05/21 15:22; Admin Dose 1 STICK; Start 05/14/16 at 09:30 Hydromorphone HCl 0.5 mg 0.5 mg Q4H PRN IV SEVERE PAIN LEVEL 7-10 Last administered on 05/22/16 19:01; Admin Dose 0.5 MG; Start 05/18/16 at 20:30 Norepinephrine 16 mg/Dextrose 500 ml @ 1.87 mls/hr TITRATE IV ; Start 05/19/16 at 12:30 Sodium Chloride 1,000 ml @ 70 mls/hr [id number] IV Last administered on 06:01; Admin Dose 70 MLS/HR; Start 05/20/16 at 09:00 Cefepime HCl (Maxipime 1gm/50 ml (Pmx)) 50 ml @ 100 mls/hr DAILY IVPB Last administered on 05/22/16 08:47; Admin Dose 100 MLS/HR; Start 05/21/16 at 14:00 Docusate Sodium (Colace Liquid Cup) 100 mg BID GTB ; Start 05/22/16 at 21:00 REGINALDO CHERY NP May 22, 2016 19:45
[2016-05-22 19:59] VITALS: BP 111/74; RESP 20
[2016-05-22] MEDS: DOCUSATE SODIUM 10 MG/ML (10ML CUP) GTB SCH (21:00)
[2016-05-22] MEDS: ZOLPIDEM 5 MG TAB PO PRN (21:14)
[2016-05-23] MEDS: HYDROmorphONE 1 MG/ML SYG IV PRN ×5 (05:12→21:27)
[2016-05-23] MEDS: PANTOPRAZOLE (EC) 40 MG TAB PO SCH (05:17)
[2016-05-23 06:04] LABS: ADD SCAN DIFF NO
[2016-05-23 06:18] LABS: BASOPHILS % 0.3 % (0.0-2.0); EOSINOPHILS # 0.1 10^3/ul (0.0-0.5); EOSINOPHILS % 3.6 % (0.0-7.0); HEMATOCRIT 31.3 % (42.0-52.0); HEMOGLOBIN 9.3 g/dl (14.0-18.0); LYMPHOCYTES # 0.7 10^3/ul (0.8-2.9); LYMPHOCYTES % 20.3 % (15.0-51.0); MEAN CORPUSCULAR HEMOGLOBIN 30.3 pg (29.0-33.0); MEAN CORPUSCULAR HGB CONC 29.7 g/dl (32.0-37.0); MONOCYTE # 0.5 10^3/ul (0.3-0.9); MONOCYTES % 14.2 % (0.0-11.0); NEUTROPHIL # 2.2 10^3/ul (1.6-7.5); PLATELET COUNT 164 10^3/UL (140-415); RED BLOOD COUNT 3.07 10^6/ul (4.70-6.10); RED CELL DISTRIBUTION WIDTH 13.4 % (11.5-14.5); WHITE BLOOD COUNT 3.6 10^3/ul (4.8-10.8)
[2016-05-23 07:40] LABS: CALCIUM 9.1 mg/dl (8.4-10.2); CREATININE 1.78 mg/dl (0.61-1.24); POTASSIUM 5.7 mmol/L (3.5-5.1)
[2016-05-23 07:58] VITALS: BP 117/76; RESP 18
[2016-05-23 08:10] VITALS: BP 146/66; RESP 20
[2016-05-23] MEDS: SOD CHLORIDE 0.45% 1,000 ML IV SCH ×3 (08:30→22:48)
[2016-05-23] MEDS: CEFEPIME 1GM/50 ML (PMX) 50 ML IVPB SCH (08:55)
[2016-05-23] MEDS: CITRIC ACID/NA CITRATE 30 ML CUP PO SCH ×3 (08:56→21:25)
[2016-05-23] MEDS: GABAPENTIN (50 MG/ML PO SYG) GTB SCH ×3 (09:00→21:25)
[2016-05-23] MEDS: ENOXAPARIN 30 MG/0.3 ML SYG SC SCH (09:00)
[2016-05-23] MEDS: DOCUSATE SODIUM 10 MG/ML (10ML CUP) GTB SCH ×2 (09:00→21:25)
--- NOTE | 2016-05-23 09:50 | CONS ---
Date/Time of Note Date/Time of Note DATE: 05/23/16 TIME: 09:46 Assessment/Plan Assessment/Plan Additional Assessment/Plan 1. Septic shock- s/p levophed 2. BELINDA due to ATN due to septic shock 3. acute hyperkalemia due to BELINDA due to ATN - now improved 3. History of a previous cardiac arrest, had a G-tube and tracheostomy in place. 4. History of coronary artery disease, status post coronary artery bypass graft. 5. History of previous aortic valve replacement, bioprosthetic valve PLAN: Cr improved to 1.78 today pt made good urine output 2.2 liter, BP stable mag sulfate 2 gram IV x 1 ,Kayexalate 30gram PO x 1 dose now Continue IVF will follow up Consultation Date/Type/Reason Admit Date/Time Initial Consult Date 05/03/2016 Type of Consultation: NEPHROLOGY Reason for Consultation acute kidney injury Referring Provider: JOSÉ ANTONIO MIRZA MD 24 HR Interval Summary Free Text/Dictation Bp stable, K high, Mag low , Pt stable Exam/Review of Systems Vital Signs Vitals Vital Signs Date Time Temp Pulse Resp B/P Pulse Ox O2 Delivery O2 Flow Rate FiO2 05/23/16 08:10 97.7 71 20 146/66 93 05/23/16 02:55 5.0 28 05/23/16 02:55 Aerosol T Tube Intake and Output 05/22/16 05/22/16 05/23/16 15:00 23:00 07:00 Intake Total 1400 ml 900 ml Output Total 2000 ml 3100 ml Balance -600 ml -2200 ml Exam GENERAL: Chronically ill-appearing, quadriplegic man who is awake, in no distress. HEENT: Head atraumatic, normocephalic. Sclerae anicteric. Buccal mucosa dry. NECK: Supple. Tracheostomy present. CHEST: Rise symmetrical. Breath sounds diminished to bases. HEART: S1, S2. ABDOMEN: Soft, bowel sounds present. EXTREMITIES: Wasted, contractured. Results Result Diagram: 05/23/1622 05/23/16 0522 Results 24 hrs Laboratory Tests Test 05/23/16 05:22 White Blood Count 3.6 #L Red Blood Count 3.07 L Hemoglobin 9.3 L Hematocrit 31.3 L Mean Corpuscular Volume 102.0 H Mean Corpuscular Hemoglobin 30.3 Mean Corpuscular Hemoglobin Concent 29.7 L Red Cell Distribution Width 13.4 Platelet Count 164 Mean Platelet Volume 12.0 H Neutrophils % 61.0 Lymphocytes % 20.3 Monocytes % 14.2 H Eosinophils % 3.6 Basophils % 0.3 Nucleated Red Blood Cells % 0.0 Neutrophils # 2.2 Lymphocytes # 0.7 L Monocytes # 0.5 Eosinophils # 0.1 Basophils # 0.0 Nucleated Red Blood Cells # 0.0 Sodium Level 143 Potassium Level 5.7 H Chloride Level 116 H Carbon Dioxide Level 20 L Anion Gap 13 Blood Urea Nitrogen 51 H Creatinine 1.78 H Glucose Level 83 Calcium Level 9.1 Magnesium Level 1.6 L Medications Medications Current Medications Enoxaparin Sodium (Lovenox) 30 mg DAILY SC Last administered on 05/21/16 09:12 ; Admin Dose 30 MG; Start 05/04/16 at 09:00 Pantoprazole (Protonix Tab) 40 mg DAILY@06 PO Last administered on 05/23/16 05 :17; Admin Dose 40 MG; Start 05/04/16 at 06:00 Citric Acid/ Sodium Citrate (Bicitra) 30 ml TID PO Last administered on 08:56; Admin Dose 30 ML; Start 05/04/16 at 13:00 Zolpidem Tartrate (Ambien) 5 mg HS PRN PO INSOMNIA Last administered on 21:14; Admin Dose 5 MG; Start 05/05/16 at 20:30 IV Flush (NS 10 ml) 10 ml PRN PRN IV IV PROTOCOL Last administered on 09:15; Admin Dose 10 ML; Start 05/06/16 at 12:30 Miscellaneous Information 1 ea NOTE XX ; Start 05/06/16 at 15:30 Glucose (Glutose) 15 gm Q15M PRN PO DECREASED GLUCOSE; Start 05/06/16 at 15:30 Glucose (Glutose) 22.5 gm Q15M PRN PO DECREASED GLUCOSE; Start 05/06/16 at 15: 30 Dextrose (D50w Syringe) 25 ml Q15M PRN IV DECREASED GLUCOSE; Start 05/06/16 at 15:30 Dextrose (D50w Syringe) 50 ml Q15M PRN IV DECREASED GLUCOSE; Start 05/06/16 at 15:30 Glucagon (Glucagen) 1 mg Q15M PRN IM DECREASED GLUCOSE; Start 05/06/16 at 15:30 Glucose (Glutose) 15 gm Q15M PRN BUCCAL DECREASED GLUCOSE; Start 05/06/16 at 15 :30 Gabapentin (Neurontin Liquid) 100 mg TID GTB Last administered on 05/22/16 21: 13; Admin Dose 100 MG; Start 05/07/16 at 22:00 Polyethylene Glycol (Miralax) 17 gm DAILY PRN PO CONSTIPATION; Start 05/10/16 at 14:00 Acetaminophen (Tylenol Tab) 650 mg Q6H PRN PO PAIN AND OR ELEVATED TEMP Last administered on 05/15/16 19:59; Admin Dose 650 MG; Start 05/12/16 at 15:00 Silver Nitrate (Silver Nitrate Swabs) 1 stick Q7D TOP Last administered on 05/21 15:22; Admin Dose 1 STICK; Start 05/14/16 at 09:30 Hydromorphone HCl 0.5 mg 0.5 mg Q4H PRN IV SEVERE PAIN LEVEL 7-10 Last administered on 05/23/16 09:08; Admin Dose 0.5 MG; Start 05/18/16 at 20:30 Norepinephrine 16 mg/Dextrose 500 ml @ 1.87 mls/hr TITRATE IV ; Start 05/19/16 at 12:30 Sodium Chloride 1,000 ml @ 70 mls/hr [id number] IV Last administered on 21:22; Admin Dose 70 MLS/HR; Start 05/20/16 at 09:00 Cefepime HCl (Maxipime 1gm/50 ml (Pmx)) 50 ml @ 100 mls/hr DAILY IVPB Last administered on 05/23/16 08:55; Admin Dose 100 MLS/HR; Start 05/21/16 at 14:00 Docusate Sodium (Colace Liquid Cup) 100 mg BID GTB ; Start 05/22/16 at 21:00 TIARA CISNEROS MD May 23, 2016 09:50
[2016-05-23] MEDS: NA POLYST SULFON 15 GM/60 ML BTL PO ONE ×2 (10:00→13:22)
[2016-05-23] MEDS ORDERED: MAGNESIUM SULFATE 2 GM/50 ML 50 ML IVPB ONE (10:30)
--- NOTE | 2016-05-23 15:19 | PN ---
DATE: 05/23/2016 SUBJECTIVE: No events overnight. No fevers. The patient is lying comfortably in bed. He is on Ce fepime. MICROBIOLOGY: Urine culture repeated on 05/18/2016 grew Providencia stuartii. Blood cultures remai n negative. INDWELLINGS: Trach, PEG, suprapubic catheter. PHYSICAL EXAMINATION: GENERAL: Chronically ill-appearing, incomplete quadriplegic man who is in no distress. HEENT: Head atraumatic, normocephalic. Sclerae anicteric. Buccal mucosa dry. NECK: Supple. CHEST: Rise symmetrical. Breath sounds diminished at the bases. HEART: S1, S2. ABDOMEN: Soft. Bowel tones present. EXTREMITIES: Without cyanosis. ASSESSMENT: 1. Recurrent urinary tract infection. 2. Status post sepsis with shock. 3. Chronic kidney disease. 4. History of right nephrectomy. 5. Abnormal LFTs. PLAN: The patient remains stable. Continue present care, antibiotics. Follow recommendations of lisa gossultmoshe. Dictated By: REGINALDO CHERY [employer] for [facility]TONE[employer]GU[facility]/QUE Conf#: [id number] DID#: [id number]
--- NOTE | 2016-05-23 16:54 | PN ---
Date/Time of Note Date/Time of Note DATE: 05/23/16 TIME: 16:50 Assessment/Plan VTE Prophylaxis VTE Prophylaxis Intervention: SCD's Lines/Catheters IV Catheter Type (from Nrsg): PICC Line Central line still needed: No Urinary Cath still in place: No Assessment/Plan Assessment/Plan Acute kidney injury Hypotension Sepsis Respiratory Failure Preserved EF on echocardiogram March 02, 2016 History of intermittent Mobitz I > sinus tachy Chronic pain syndrome -s/p hypotension but now fairly stable -renal insuff stable - IV fluids as per our nephrology colleagues. Subjective 24 Hr Interval Summary Free Text/Dictation the patient with no cahnge Exam/Review of Systems Vital Signs Vitals Vital Signs Date Time Temp Pulse Resp B/P Pulse Ox O2 Delivery O2 Flow Rate FiO2 05/23/16 13:40 65 18 96 Aerosol 5.0 28 T Tube 05/23/16 08:10 97.7 146/66 Intake and Output 05/22/16 05/22/16 05/23/16 14:59 22:59 06:59 Intake Total 1400 ml 900 ml Output Total 2000 ml 3100 ml Balance -600 ml -2200 ml Results Result Diagram: 05/23/16 0522 05/23/16 0522 Results 24 hrs Laboratory Tests Test 05/23/16 05:22 White Blood Count 3.6 #L Red Blood Count 3.07 L Hemoglobin 9.3 L Hematocrit 31.3 L Mean Corpuscular Volume 102.0 H Mean Corpuscular Hemoglobin 30.3 Mean Corpuscular Hemoglobin Concent 29.7 L Red Cell Distribution Width 13.4 Platelet Count 164 Mean Platelet Volume 12.0 H Neutrophils % 61.0 Lymphocytes % 20.3 Monocytes % 14.2 H Eosinophils % 3.6 Basophils % 0.3 Nucleated Red Blood Cells % 0.0 Neutrophils # 2.2 Lymphocytes # 0.7 L Monocytes # 0.5 Eosinophils # 0.1 Basophils # 0.0 Nucleated Red Blood Cells # 0.0 Sodium Level 143 Potassium Level 5.7 H Chloride Level 116 H Carbon Dioxide Level 20 L Anion Gap 13 Blood Urea Nitrogen 51 H Creatinine 1.78 H Glucose Level 83 Calcium Level 9.1 Magnesium Level 1.6 L Medications Medications Current Medications Enoxaparin Sodium (Lovenox) 30 mg DAILY SC Last administered on 05/21/16t 09:12 ; Admin Dose 30 MG; Start 05/04/16 at 09:00 Pantoprazole (Protonix Tab) 40 mg DAILY@06 PO Last administered on 05/23/16 05 :17; Admin Dose 40 MG; Start 05/04/16 at 06:00 Citric Acid/ Sodium Citrate (Bicitra) 30 ml TID PO Last administered on 13:18; Admin Dose 30 ML; Start 05/04/16 at 13:00 Zolpidem Tartrate (Ambien) 5 mg HS PRN PO INSOMNIA Last administered on 21:14; Admin Dose 5 MG; Start 05/05/16 at 20:30 IV Flush (NS 10 ml) 10 ml PRN PRN IV IV PROTOCOL Last administered on 09:15; Admin Dose 10 ML; Start 05/06/16 at 12:30 Miscellaneous Information 1 ea NOTE XX ; Start 05/06/16 at 15:30 Glucose (Glutose) 15 gm Q15M PRN PO DECREASED GLUCOSE; Start 05/06/16 at 15:30 Glucose (Glutose) 22.5 gm Q15M PRN PO DECREASED GLUCOSE; Start 05/06/16 at 15: 30 Dextrose (D50w Syringe) 25 ml Q15M PRN IV DECREASED GLUCOSE; Start 05/06/16 at 15:30 Dextrose (D50w Syringe) 50 ml Q15M PRN IV DECREASED GLUCOSE; Start 05/06/16 at 15:30 Glucagon (Glucagen) 1 mg Q15M PRN IM DECREASED GLUCOSE; Start 05/06/16 at 15:30 Glucose (Glutose) 15 gm Q15M PRN BUCCAL DECREASED GLUCOSE; Start 05/06/16 at 15 :30 Gabapentin (Neurontin Liquid) 100 mg TID GTB Last administered on 05/23/16 13: 18; Admin Dose 100 MG; Start 05/07/16 at 22:00 Polyethylene Glycol (Miralax) 17 gm DAILY PRN PO CONSTIPATION; Start 05/10/16 at 14:00 Acetaminophen (Tylenol Tab) 650 mg Q6H PRN PO PAIN AND OR ELEVATED TEMP Last administered on 05/15/16 19:59; Admin Dose 650 MG; Start 05/12/16 at 15:00 Silver Nitrate (Silver Nitrate Swabs) 1 stick Q7D TOP Last administered on 05/21 15:22; Admin Dose 1 STICK; Start 05/14/16 at 09:30 Hydromorphone HCl 0.5 mg 0.5 mg Q4H PRN IV SEVERE PAIN LEVEL 7-10 Last administered on 05/23/16 13:14; Admin Dose 0.5 MG; Start 05/18/16 at 20:30 Sodium Chloride 1,000 ml @ 70 mls/hr [id number] IV Last administered on 15:46; Admin Dose 70 MLS/HR; Start 05/20/16 at 09:00 Cefepime HCl (Maxipime 1gm/50 ml (Pmx)) 50 ml @ 100 mls/hr DAILY IVPB Last administered on 05/23/16 08:55; Admin Dose 100 MLS/HR; Start 05/21/16 at 14:00 Docusate Sodium (Colace Liquid Cup) 100 mg BID GTB ; Start 05/22/16 at 21:00 YIN RUSH MD May 23, 2016 16:54
--- NOTE | 2016-05-23 18:30 | PN ---
Date/Time of Note Date/Time of Note DATE: 05/23/16 TIME: 18:29 Assessment/Plan VTE Prophylaxis VTE Prophylaxis Intervention: SCD's Lines/Catheters IV Catheter Type (from [facility]): PICC Line Central line still needed: Yes Urinary Cath still in place: No Assessment/Plan Chief Complaint/Hosp Course ASSESSMENT AND PLAN: 1. Polymicrobial Urinary tract infection. S/p treatment. Dr. Maciel is following patient in infection disease consultation. 2. Acute kidney injury on top of chronic kidney disease. Status post right nephrectomy. Left nephrolithiasis and renal cyst. Dr. Barker is following in nephrology consultation. Continue to monitor BUN and creatinine. 3. Ventilator-dependent respiratory failure with tracheostomy. is following patient in pulmonary consultation. Continue bronchodilators and ventilatory support. 4. Multiple decubitus ulcers present on admission. Continue zinc sulfate, multivitamins and offloading and current wound care. 5. Cervical spine injury with paraplegia. 6. Bipolar disorder with psychosis. Continue patient on risperidone b.i.d. and Lexapro. 7. Iron deficiency anemia. Continue patient on iron supplements. 8. Neurogenic bladder with suprapubic catheter. 9. Dysphagia with PEG. Pending SNIF placement Continue Lovenox for deep venous thrombosis prophylaxis and Protonix for peptic ulcer disease prophylaxis. Further recommendations based on clinical course. Plan of care discussed with Dr. Barreto. Problems: Subjective 24 Hr Interval Summary Free Text/Dictation Patient is comfortable on supplemental oxygen via G-tube and tracheostomy, remains afebrile, tolerates diet well. Exam/Review of Systems Vital Signs Vitals Vital Signs Date Time Temp Pulse Resp B/P Pulse Ox O2 Delivery O2 Flow Rate FiO2 05/23/16 17:46 5.0 28 05/23/16 17:45 68 16 98 Aerosol T Tube 05/23/16 08:10 97.7 146/66 Intake and Output 05/22/16 05/22/16 05/23/16 15:00 23:00 07:00 Intake Total 1400 ml 900 ml Output Total 2000 ml 3100 ml Balance -600 ml -2200 ml Exam PHYSICAL ASSESSMENT: GENERAL: Well-developed, debilitated, cachectic male currently is awake, alert , follows immediate commands. HEENT: Head is atraumatic, normocephalic. PERRLA. NECK: Supple. There is a tracheostomy at the base of the neck with no bleeding. LUNGS: The patient has scattered rhonchi bilaterally, slightly diminished at the bases. There is no wheezing noted. CARDIOVASCULAR: Normal S1, S2. No murmurs, gallops, clicks, rubs noted. The patient is slightly tachycardic. ABDOMEN: Flat, soft, nondistended, nontender. G-tube with intact stoma. The patient also has a suprapubic catheter with intact stoma. EXTREMITIES: Contracted. SKIN: The patient has sacral ulcers present on admission. There is no rash, petechiae noted. NEUROLOGIC: The patient is awake, alert and oriented, following immediate commands, with paraplegia. Results Result Diagram: 05/23/1622 05/23/16521 Results 24 hrs Laboratory Tests Test 05/23/16 05:22 White Blood Count 3.6 #L Red Blood Count 3.07 L Hemoglobin 9.3 L Hematocrit 31.3 L Mean Corpuscular Volume 102.0 H Mean Corpuscular Hemoglobin 30.3 Mean Corpuscular Hemoglobin Concent 29.7 L Red Cell Distribution Width 13.4 Platelet Count 164 Mean Platelet Volume 12.0 H Neutrophils % 61.0 Lymphocytes % 20.3 Monocytes % 14.2 H Eosinophils % 3.6 Basophils % 0.3 Nucleated Red Blood Cells % 0.0 Neutrophils # 2.2 Lymphocytes # 0.7 L Monocytes # 0.5 Eosinophils # 0.1 Basophils # 0.0 Nucleated Red Blood Cells # 0.0 Sodium Level 143 Potassium Level 5.7 H Chloride Level 116 H Carbon Dioxide Level 20 L Anion Gap 13 Blood Urea Nitrogen 51 H Creatinine 1.78 H Glucose Level 83 Calcium Level 9.1 Magnesium Level 1.6 L Medications Medications Current Medications Enoxaparin Sodium (Lovenox) 30 mg DAILY SC Last administered on 05/21/16 09:12 ; Admin Dose 30 MG; Start 05/04/16 at 09:00 Pantoprazole (Protonix Tab) 40 mg DAILY@06 PO Last administered on 05/23/16 05 :17; Admin Dose 40 MG; Start 05/04/16 at 06:00 Citric Acid/ Sodium Citrate (Bicitra) 30 ml TID PO Last administered on 13:18; Admin Dose 30 ML; Start 05/04/16 at 13:00 Zolpidem Tartrate (Ambien) 5 mg HS PRN PO INSOMNIA Last administered on 21:14; Admin Dose 5 MG; Start 05/05/16 at 20:30 IV Flush (NS 10 ml) 10 ml PRN PRN IV IV PROTOCOL Last administered on 17:42; Admin Dose 10 ML; Start 05/06/16 at 12:30 Miscellaneous Information 1 ea NOTE XX ; Start 05/06/16 at 15:30 Glucose (Glutose) 15 gm Q15M PRN PO DECREASED GLUCOSE; Start 05/06/16 at 15:30 Glucose (Glutose) 22.5 gm Q15M PRN PO DECREASED GLUCOSE; Start 05/06/16 at 15: 30 Dextrose (D50w Syringe) 25 ml Q15M PRN IV DECREASED GLUCOSE; Start 05/06/16 at 15:30 Dextrose (D50w Syringe) 50 ml Q15M PRN IV DECREASED GLUCOSE; Start 05/06/16 at 15:30 Glucagon (Glucagen) 1 mg Q15M PRN IM DECREASED GLUCOSE; Start 05/06/16 at 15:30 Glucose (Glutose) 15 gm Q15M PRN BUCCAL DECREASED GLUCOSE; Start 05/06/16 at 15 :30 Gabapentin (Neurontin Liquid) 100 mg TID GTB Last administered on 05/23/16 13: 18; Admin Dose 100 MG; Start 05/07/16 at 22:00 Polyethylene Glycol (Miralax) 17 gm DAILY PRN PO CONSTIPATION; Start 05/10/16 at 14:00 Acetaminophen (Tylenol Tab) 650 mg Q6H PRN PO PAIN AND OR ELEVATED TEMP Last administered on 05/15/16 19:59; Admin Dose 650 MG; Start 05/12/16 at 15:00 Silver Nitrate (Silver Nitrate Swabs) 1 stick Q7D TOP Last administered on 05/21 15:22; Admin Dose 1 STICK; Start 05/14/16 at 09:30 Hydromorphone HCl 0.5 mg 0.5 mg Q4H PRN IV SEVERE PAIN LEVEL 7-10 Last administered on 05/23/16 17:37; Admin Dose 0.5 MG; Start 05/18/16 at 20:30 Sodium Chloride 1,000 ml @ 70 mls/hr [id number] IV Last administered on 15:46; Admin Dose 70 MLS/HR; Start 05/20/16 at 09:00 Cefepime HCl (Maxipime 1gm/50 ml (Pmx)) 50 ml @ 100 mls/hr DAILY IVPB Last administered on 05/23/16 08:55; Admin Dose 100 MLS/HR; Start 05/21/16 at 14:00 Docusate Sodium (Colace Liquid Cup) 100 mg BID GTB ; Start 05/22/16 at 21:00 AISSATOU DUNCAN May 23, 2016 18:30
[2016-05-23 21:01] VITALS: BP 117/80; RESP 18
[2016-05-23] MEDS: ZOLPIDEM 5 MG TAB PO PRN (21:37)
[2016-05-24] MEDS: HYDROmorphONE 1 MG/ML SYG IV PRN ×5 (02:43→20:24)
[2016-05-24 05:57] LABS: ADD SCAN DIFF NO
[2016-05-24] MEDS: PANTOPRAZOLE (EC) 40 MG TAB PO SCH (06:17)
[2016-05-24] MEDS: SOD CHLORIDE 0.45% 1,000 ML IV SCH ×3 (06:17→23:01)
[2016-05-24 06:18] LABS: POTASSIUM 5.2 mmol/L (3.5-5.1)
[2016-05-24 06:21] LABS: CREATININE 1.62 mg/dl (0.61-1.24)
[2016-05-24 06:34] LABS: BASOPHILS % 0.3 % (0.0-2.0); EOSINOPHILS # 0.1 10^3/ul (0.0-0.5); EOSINOPHILS % 3.1 % (0.0-7.0); HEMATOCRIT 31.4 % (42.0-52.0); HEMOGLOBIN 9.3 g/dl (14.0-18.0); LYMPHOCYTES # 0.7 10^3/ul (0.8-2.9); MEAN CORPUSCULAR HEMOGLOBIN 30.3 pg (29.0-33.0); MEAN CORPUSCULAR HGB CONC 29.6 g/dl (32.0-37.0); MEAN CORPUSCULAR VOLUME 102.3 fl (82.0-101.0); MEAN PLATELET VOLUME 11.6 fl (7.4-10.4); MONOCYTE # 0.5 10^3/ul (0.3-0.9); MONOCYTES % 12.9 % (0.0-11.0); NEUTROPHIL # 2.2 10^3/ul (1.6-7.5); NEUTROPHILS % 63.4 % (39.0-77.0); PLATELET COUNT 163 10^3/UL (140-415); RED BLOOD COUNT 3.07 10^6/ul (4.70-6.10); RED CELL DISTRIBUTION WIDTH 13.4 % (11.5-14.5); WHITE BLOOD COUNT 3.5 10^3/ul (4.8-10.8)
[2016-05-24 08:04] VITALS: BP 95/65; RESP 20
[2016-05-24] MEDS: DOCUSATE SODIUM 10 MG/ML (10ML CUP) GTB SCH ×2 (09:00→21:00)
[2016-05-24] MEDS: ENOXAPARIN 30 MG/0.3 ML SYG SC SCH (09:00)
[2016-05-24] MEDS: CEFEPIME 1GM/50 ML (PMX) 50 ML IVPB SCH (09:06)
[2016-05-24] MEDS: GABAPENTIN (50 MG/ML PO SYG) GTB SCH ×3 (09:09→21:35)
[2016-05-24] MEDS: CITRIC ACID/NA CITRATE 30 ML CUP PO SCH ×3 (09:10→21:00)
--- NOTE | 2016-05-24 10:08 | CONS ---
Date/Time of Note Date/Time of Note DATE: 05/24/16 TIME: 10:05 Assessment/Plan Assessment/Plan Additional Assessment/Plan 1. Septic shock- s/p levophed 2. BELINDA due to ATN due to septic shock 3. acute hyperkalemia due to BELINDA due to ATN - now improved to 5.2 after one dose of kayexalate yesterday 3. History of a previous cardiac arrest, had a G-tube and tracheostomy in place. 4. History of coronary artery disease, status post coronary artery bypass graft. 5. History of previous aortic valve replacement, bioprosthetic valve PLAN: Cr improved to 1.6 today pt made good urine output, BP stable wiill kayexalate 15 gram X 1 if pt agrees Continue IVF 1/2 at 75 cc/hr will follow up Consultation Date/Type/Reason Initial Consult Date 05/03/2016 Type of Consultation: NEPHROLOGY Reason for Consultation acute kidney injury, Hypernatremia Referring Provider: JOSÉ ANTONIO MIRZA MD 24 HR Interval Summary Free Text/Dictation pt agreed for kayexalate yesterdy, K 5.2,cr slightly improved to 1.62 Exam/Review of Systems Vital Signs Vitals Vital Signs Date Time Temp Pulse Resp B/P Pulse Ox O2 Delivery O2 Flow Rate FiO2 05/24/16 08:04 98.2 96 20 95/65 96 05/24/16 03:55 5.0 28 05/23/16 21:59 Aerosol T Tube Intake and Output 05/23/16 05/23/16 05/24/16 15:00 23:00 07:00 Intake Total 100 ml 2220 ml 900 ml Output Total 2300 ml Balance 100 ml -80 ml 900 ml Exam GENERAL: Chronically ill-appearing, quadriplegic man who is awake, in no distress. HEENT: Head atraumatic, normocephalic. Sclerae anicteric. Buccal mucosa dry. NECK: Supple. Tracheostomy present. CHEST: Rise symmetrical. Breath sounds diminished to bases. HEART: S1, S2. ABDOMEN: Soft, bowel sounds present. EXTREMITIES: Wasted, contractured. Results Result Diagram: 05/24/16 0545 05/24/16 0545 Results 24 hrs Laboratory Tests Test 05/24/16 05:45 White Blood Count 3.5 L Red Blood Count 3.07 L Hemoglobin 9.3 L Hematocrit 31.4 L Mean Corpuscular Volume 102.3 H Mean Corpuscular Hemoglobin 30.3 Mean Corpuscular Hemoglobin Concent 29.6 L Red Cell Distribution Width 13.4 Platelet Count 163 Mean Platelet Volume 11.6 H Neutrophils % 63.4 Lymphocytes % 20.0 Monocytes % 12.9 H Eosinophils % 3.1 Basophils % 0.3 Nucleated Red Blood Cells % 0.0 Neutrophils # 2.2 Lymphocytes # 0.7 L Monocytes # 0.5 Eosinophils # 0.1 Basophils # 0.0 Nucleated Red Blood Cells # 0.0 Sodium Level 144 Potassium Level 5.2 H Chloride Level 109 Carbon Dioxide Level 24 Anion Gap 16 Blood Urea Nitrogen 48 H Creatinine 1.62 H Glucose Level 93 Calcium Level 9.0 Medications Medications Current Medications Enoxaparin Sodium (Lovenox) 30 mg DAILY SC Last administered on 05/21/16 09:12 ; Admin Dose 30 MG; Start 05/04/16 at 09:00 Pantoprazole (Protonix Tab) 40 mg DAILY@06 PO Last administered on 05/24/16 06 :17; Admin Dose 40 MG; Start 05/04/16 at 06:00 Citric Acid/ Sodium Citrate (Bicitra) 30 ml TID PO Last administered on 09:10; Admin Dose 30 ML; Start 05/04/16 at 13:00 Zolpidem Tartrate (Ambien) 5 mg HS PRN PO INSOMNIA Last administered on 21:37; Admin Dose 5 MG; Start 05/05/16 at 20:30 IV Flush (NS 10 ml) 10 ml PRN PRN IV IV PROTOCOL Last administered on 17:42; Admin Dose 10 ML; Start 05/06/16 at 12:30 Miscellaneous Information 1 ea NOTE XX ; Start 05/06/16 at 15:30 Glucose (Glutose) 15 gm Q15M PRN PO DECREASED GLUCOSE; Start 05/06/16 at 15:30 Glucose (Glutose) 22.5 gm Q15M PRN PO DECREASED GLUCOSE; Start 05/06/16 at 15: 30 Dextrose (D50w Syringe) 25 ml Q15M PRN IV DECREASED GLUCOSE; Start 05/06/16 at 15:30 Dextrose (D50w Syringe) 50 ml Q15M PRN IV DECREASED GLUCOSE; Start 05/06/16 at 15:30 Glucagon (Glucagen) 1 mg Q15M PRN IM DECREASED GLUCOSE; Start 05/06/16 at 15:30 Glucose (Glutose) 15 gm Q15M PRN BUCCAL DECREASED GLUCOSE; Start 05/06/16 at 15 :30 Gabapentin (Neurontin Liquid) 100 mg TID GTB Last administered on 05/24/16 09: 09; Admin Dose 100 MG; Start 05/07/16 at 22:00 Polyethylene Glycol (Miralax) 17 gm DAILY PRN PO CONSTIPATION; Start 05/10/16 at 14:00 Acetaminophen (Tylenol Tab) 650 mg Q6H PRN PO PAIN AND OR ELEVATED TEMP Last administered on 05/15/16 19:59; Admin Dose 650 MG; Start 05/12/16 at 15:00 Silver Nitrate (Silver Nitrate Swabs) 1 stick Q7D TOP Last administered on 05/21 15:22; Admin Dose 1 STICK; Start 05/14/16 at 09:30 Hydromorphone HCl 0.5 mg 0.5 mg Q4H PRN IV SEVERE PAIN LEVEL 7-10 Last administered on 05/24/16 06:58; Admin Dose 0.5 MG; Start 05/18/16 at 20:30 Sodium Chloride 1,000 ml @ 70 mls/hr [id number] IV Last administered on 06:17; Admin Dose 70 MLS/HR; Start 05/20/16 at 09:00 Cefepime HCl (Maxipime 1gm/50 ml (Pmx)) 50 ml @ 100 mls/hr DAILY IVPB Last administered on 05/24/16 09:06; Admin Dose 100 MLS/HR; Start 05/21/16 at 14:00 Docusate Sodium (Colace Liquid Cup) 100 mg BID GTB Last administered on 21:25; Admin Dose 100 MG; Start 05/22/16 at 21:00 TIARA CISNEROS MD May 24, 2016 10:08
[2016-05-24] MEDS ORDERED: POTASSIUM CHLORIDE 20 MEQ POWDER FOR ORAL SOLN GTB ONE (15:30)
[2016-05-24] MEDS ORDERED: NA POLYST SULFON 15 GM/60 ML BTL PO ONE (15:30)
--- NOTE | 2016-05-24 17:14 | CONS ---
Date/Time of Note Date/Time of Note DATE: 05/24/16 TIME: 17:13 Assessment/Plan Assessment/Plan Chief Complaint/Hosp Course SUBJECTIVE: No events overnight. Alert, feels good, no fevers MICROBIOLOGY: Urine culture repeated on 05/18/2016 Jax. Blood cultures remain negative. INDWELLINGS: Trach, PEG, suprapubic catheter, PICC line placed on 05/06/2016. ANTIMICROBIALS: Cefepime PHYSICAL EXAMINATION: GENERAL: Chronically ill-appearing, quadriplegic man who is awake, in no distress. HEENT: Head atraumatic, normocephalic. Sclerae anicteric. Buccal mucosa dry. NECK: Supple. Tracheostomy present. CHEST: Rise symmetrical. Breath sounds diminished to bases. HEART: S1, S2. ABDOMEN: Soft, bowel sounds present. EXTREMITIES: Wasted, contractured. ASSESSMENT: 1. Resolving sepsis, status post shock. 2. Recurrent urinary tract infection. 3. Quadriplegia. 4. Chronic kidney disease with a history of right nephrectomy. 5. Gallstones. 6. Chronic respiratory failure. 7. Abnormal LFT==> improving PLAN: The patient remains stable. Continue present care, antibiotics. Renal/GI /pulmonary recommendations. DW staff Problems: Consultation Date/Type/Reason Admit Date/Time May 04, 2016 at 12:27 Initial Consult Date 05/05/16 Type of Consultation: ID Referring Provider: JOSÉ ANTONIO MIRZA MD Exam/Review of Systems Vital Signs Vitals Vital Signs Date Time Temp Pulse Resp B/P Pulse Ox O2 Delivery O2 Flow Rate FiO2 05/24/16 10:00 5.0 05/24/16 08:04 98.2 96 20 95/65 96 05/24/16 03:55 28 05/23/16 21:59 Aerosol T Tube Intake and Output 05/23/16 05/23/16 05/24/16 15:00 23:00 07:00 Intake Total 100 ml 2220 ml 900 ml Output Total 2300 ml Balance 100 ml -80 ml 900 ml Results Result Diagram: 05/24/16 0545 05/24/16 1620 Results 24 hrs Laboratory Tests Test 05/24/16 05:45 05/24/16 16:20 White Blood Count 3.5 L Red Blood Count 3.07 L Hemoglobin 9.3 L Hematocrit 31.4 L Mean Corpuscular Volume 102.3 H Mean Corpuscular Hemoglobin 30.3 Mean Corpuscular Hemoglobin Concent 29.6 L Red Cell Distribution Width 13.4 Platelet Count 163 Mean Platelet Volume 11.6 H Neutrophils % 63.4 Lymphocytes % 20.0 Monocytes % 12.9 H Eosinophils % 3.1 Basophils % 0.3 Nucleated Red Blood Cells % 0.0 Neutrophils # 2.2 Lymphocytes # 0.7 L Monocytes # 0.5 Eosinophils # 0.1 Basophils # 0.0 Nucleated Red Blood Cells # 0.0 Sodium Level 144 Potassium Level 5.2 H 5.2 H Chloride Level 109 Carbon Dioxide Level 24 Anion Gap 16 Blood Urea Nitrogen 48 H Creatinine 1.62 H Glucose Level 93 Calcium Level 9.0 Medications Medications Current Medications Enoxaparin Sodium (Lovenox) 30 mg DAILY SC Last administered on 05/21/16 09:12 ; Admin Dose 30 MG; Start 05/04/16 at 09:00 Pantoprazole (Protonix Tab) 40 mg DAILY@06 PO Last administered on 05/24/16 06 :17; Admin Dose 40 MG; Start 05/04/16 at 06:00 Citric Acid/ Sodium Citrate (Bicitra) 30 ml TID PO Last administered on 09:10; Admin Dose 30 ML; Start 05/04/16 at 13:00 Zolpidem Tartrate (Ambien) 5 mg HS PRN PO INSOMNIA Last administered on 21:37; Admin Dose 5 MG; Start 05/05/16 at 20:30 IV Flush (NS 10 ml) 10 ml PRN PRN IV IV PROTOCOL Last administered on 17:42; Admin Dose 10 ML; Start 05/06/16 at 12:30 Miscellaneous Information 1 ea NOTE XX ; Start 05/06/16 at 15:30 Glucose (Glutose) 15 gm Q15M PRN PO DECREASED GLUCOSE; Start 05/06/16 at 15:30 Glucose (Glutose) 22.5 gm Q15M PRN PO DECREASED GLUCOSE; Start 05/06/16 at 15: 30 Dextrose (D50w Syringe) 25 ml Q15M PRN IV DECREASED GLUCOSE; Start 05/06/16 at 15:30 Dextrose (D50w Syringe) 50 ml Q15M PRN IV DECREASED GLUCOSE; Start 05/06/16 at 15:30 Glucagon (Glucagen) 1 mg Q15M PRN IM DECREASED GLUCOSE; Start 05/06/16 at 15:30 Glucose (Glutose) 15 gm Q15M PRN BUCCAL DECREASED GLUCOSE; Start 05/06/16 at 15 :30 Gabapentin (Neurontin Liquid) 100 mg TID GTB Last administered on 05/24/16 09: 09; Admin Dose 100 MG; Start 05/07/16 at 22:00 Polyethylene Glycol (Miralax) 17 gm DAILY PRN PO CONSTIPATION; Start 05/10/16 at 14:00 Acetaminophen (Tylenol Tab) 650 mg Q6H PRN PO PAIN AND OR ELEVATED TEMP Last administered on 05/15/16 19:59; Admin Dose 650 MG; Start 05/12/16 at 15:00 Silver Nitrate (Silver Nitrate Swabs) 1 stick Q7D TOP Last administered on 05/21 15:22; Admin Dose 1 STICK; Start 05/14/16 at 09:30 Hydromorphone HCl 0.5 mg 0.5 mg Q4H PRN IV SEVERE PAIN LEVEL 7-10 Last administered on 05/24/16 15:31; Admin Dose 0.5 MG; Start 05/18/16 at 20:30 Sodium Chloride 1,000 ml @ 70 mls/hr [id number] IV Last administered on 06:17; Admin Dose 70 MLS/HR; Start 05/20/16 at 09:00 Cefepime HCl (Maxipime 1gm/50 ml (Pmx)) 50 ml @ 100 mls/hr DAILY IVPB Last administered on 05/24/16 09:06; Admin Dose 100 MLS/HR; Start 05/21/16 at 14:00 Docusate Sodium (Colace Liquid Cup) 100 mg BID GTB Last administered on 21:25; Admin Dose 100 MG; Start 05/22/16 at 21:00 REGINALDO CHERY NP May 24, 2016 17:14
--- NOTE | 2016-05-24 17:49 | PN ---
Date/Time of Note Date/Time of Note DATE: 05/24/16 TIME: 17:46 Assessment/Plan VTE Prophylaxis VTE Prophylaxis Intervention: SCD's Lines/Catheters IV Catheter Type (from [facility]): Peripheral IV Urinary Cath still in place: No Assessment/Plan Chief Complaint/Hosp Course ASSESSMENT AND PLAN: 1. Polymicrobial Urinary tract infection. S/p treatment. Dr. Maciel is following patient in infection disease consultation. 2. Acute kidney injury on top of chronic kidney disease. Status post right nephrectomy. Left nephrolithiasis and renal cyst. Dr. Barker is following in nephrology consultation. Continue to monitor BUN and creatinine. 3. Ventilator-dependent respiratory failure with tracheostomy. is following patient in pulmonary consultation. Continue bronchodilators and ventilatory support. 4. Multiple decubitus ulcers present on admission. Continue zinc sulfate, multivitamins and offloading and current wound care. 5. Cervical spine injury with paraplegia. 6. Bipolar disorder with psychosis. Continue patient on risperidone b.i.d. and Lexapro. 7. Iron deficiency anemia. Continue patient on iron supplements. 8. Neurogenic bladder with suprapubic catheter. 9. Dysphagia with PEG. 10. Hyperkalemia, give Kayexalate. Continue Lovenox for deep venous thrombosis prophylaxis and Protonix for peptic ulcer disease prophylaxis. Further recommendations based on clinical course. Plan of care discussed with Dr. Barreto. Problems: Subjective 24 Hr Interval Summary Free Text/Dictation Patient K is 5.2, refused Kayexalate, repeat k is 5.2. Continue to encourage to take meds. Exam/Review of Systems Vital Signs Vitals Vital Signs Date Time Temp Pulse Resp B/P Pulse Ox O2 Delivery O2 Flow Rate FiO2 05/24/16 10:00 5.0 05/24/16 08:04 98.2 96 20 95/65 96 05/24/16 03:55 28 05/23/16 21:59 Aerosol T Tube Intake and Output 05/23/16 05/23/16 05/24/16 14:59 22:59 06:59 Intake Total 100 ml 2220 ml 900 ml Output Total 2300 ml Balance 100 ml -80 ml 900 ml Exam PHYSICAL ASSESSMENT: GENERAL: Well-developed, debilitated, cachectic male currently is awake, alert , follows immediate commands. HEENT: Head is atraumatic, normocephalic. PERRLA. NECK: Supple. There is a tracheostomy at the base of the neck with no bleeding. LUNGS: The patient has scattered rhonchi bilaterally, slightly diminished at the bases. There is no wheezing noted. CARDIOVASCULAR: Normal S1, S2. No murmurs, gallops, clicks, rubs noted. The patient is slightly tachycardic. ABDOMEN: Flat, soft, nondistended, nontender. G-tube with intact stoma. The patient also has a suprapubic catheter with intact stoma. EXTREMITIES: Contracted. SKIN: The patient has sacral ulcers present on admission. There is no rash, petechiae noted. NEUROLOGIC: The patient is awake, alert and oriented, following immediate commands, with paraplegia. Results Result Diagram: 05/24/16 0545 05/24/16 1620 Results 24 hrs Laboratory Tests Test 05/24/16 05:45 05/24/16 16:20 White Blood Count 3.5 L Red Blood Count 3.07 L Hemoglobin 9.3 L Hematocrit 31.4 L Mean Corpuscular Volume 102.3 H Mean Corpuscular Hemoglobin 30.3 Mean Corpuscular Hemoglobin Concent 29.6 L Red Cell Distribution Width 13.4 Platelet Count 163 Mean Platelet Volume 11.6 H Neutrophils % 63.4 Lymphocytes % 20.0 Monocytes % 12.9 H Eosinophils % 3.1 Basophils % 0.3 Nucleated Red Blood Cells % 0.0 Neutrophils # 2.2 Lymphocytes # 0.7 L Monocytes # 0.5 Eosinophils # 0.1 Basophils # 0.0 Nucleated Red Blood Cells # 0.0 Sodium Level 144 Potassium Level 5.2 H 5.2 H Chloride Level 109 Carbon Dioxide Level 24 Anion Gap 16 Blood Urea Nitrogen 48 H Creatinine 1.62 H Glucose Level 93 Calcium Level 9.0 Medications Medications Current Medications Enoxaparin Sodium (Lovenox) 30 mg DAILY SC Last administered on 05/21/16 09:12 ; Admin Dose 30 MG; Start 05/04/16 at 09:00 Pantoprazole (Protonix Tab) 40 mg DAILY@06 PO Last administered on 05/24/16 06 :17; Admin Dose 40 MG; Start 05/04/16 at 06:00 Citric Acid/ Sodium Citrate (Bicitra) 30 ml TID PO Last administered on 09:10; Admin Dose 30 ML; Start 05/04/16 at 13:00 Zolpidem Tartrate (Ambien) 5 mg HS PRN PO INSOMNIA Last administered on 21:37; Admin Dose 5 MG; Start 05/05/16 at 20:30 IV Flush (NS 10 ml) 10 ml PRN PRN IV IV PROTOCOL Last administered on 17:42; Admin Dose 10 ML; Start 05/06/16 at 12:30 Miscellaneous Information 1 ea NOTE XX ; Start 05/06/16 at 15:30 Glucose (Glutose) 15 gm Q15M PRN PO DECREASED GLUCOSE; Start 05/06/16 at 15:30 Glucose (Glutose) 22.5 gm Q15M PRN PO DECREASED GLUCOSE; Start 05/06/16 at 15: 30 Dextrose (D50w Syringe) 25 ml Q15M PRN IV DECREASED GLUCOSE; Start 05/06/16 at 15:30 Dextrose (D50w Syringe) 50 ml Q15M PRN IV DECREASED GLUCOSE; Start 05/06/16 at 15:30 Glucagon (Glucagen) 1 mg Q15M PRN IM DECREASED GLUCOSE; Start 05/06/16 at 15:30 Glucose (Glutose) 15 gm Q15M PRN BUCCAL DECREASED GLUCOSE; Start 05/06/16 at 15 :30 Gabapentin (Neurontin Liquid) 100 mg TID GTB Last administered on 05/24/16 09: 09; Admin Dose 100 MG; Start 05/07/16 at 22:00 Polyethylene Glycol (Miralax) 17 gm DAILY PRN PO CONSTIPATION; Start 05/10/16 at 14:00 Acetaminophen (Tylenol Tab) 650 mg Q6H PRN PO PAIN AND OR ELEVATED TEMP Last administered on 05/15/16 19:59; Admin Dose 650 MG; Start 05/12/16 at 15:00 Silver Nitrate (Silver Nitrate Swabs) 1 stick Q7D TOP Last administered on 05/21 15:22; Admin Dose 1 STICK; Start 05/14/16 at 09:30 Hydromorphone HCl 0.5 mg 0.5 mg Q4H PRN IV SEVERE PAIN LEVEL 7-10 Last administered on 05/24/16 15:31; Admin Dose 0.5 MG; Start 05/18/16 at 20:30 Sodium Chloride 1,000 ml @ 70 mls/hr [id number] IV Last administered on 06:17; Admin Dose 70 MLS/HR; Start 05/20/16 at 09:00 Cefepime HCl (Maxipime 1gm/50 ml (Pmx)) 50 ml @ 100 mls/hr DAILY IVPB Last administered on 05/24/16 09:06; Admin Dose 100 MLS/HR; Start 05/21/16 at 14:00 Docusate Sodium (Colace Liquid Cup) 100 mg BID GTB Last administered on 21:25; Admin Dose 100 MG; Start 05/22/16 at 21:00 AISSATOU DUNCAN May 24, 2016 17:49
--- NOTE | 2016-05-24 17:50 | DS ---
DATE OF ADMISSION: 05/04/2016 DATE OF DISCHARGE: 05/24/2016 FINAL DIAGNOSES: 1. Polymicrobial recurrent urinary tract infection. 2. Acute kidney injury on top of chronic kidney disease, resolved. 3. Ventilator-dependent respiratory failure with tracheostomy. 4. Multiple decubitus ulcers present on admission. 5. Cervical spine injury with paraplegia. 6. Bipolar disorder with psychosis. 7. Iron deficiency anemia. 8. Neurogenic bladder with suprapubic catheter. 9. Dysphagia with percutaneous endoscopic gastrostomy tube. 10. Chronic pain syndrome. BRIEF HISTORY: The patient is a 40-year-old gentleman with history of cervical spine injury with pa raplegia, ventilator-dependent respiratory failure with tracheostomy and chronic kidney disease and history of dysphagia with G-tube. The patient was brought from group home facility due to elev ated BUN and creatinine. On evaluation in the emergency room, BUN was 131 and creatinine 3.1. The patient also had a low-grade fever. After blood cultures were taken and patient was started on broa d spectrum antibiotics, the patient was admitted for further evaluation and management. HOSPITAL COURSE: The patient was evaluated by Dr. Maciel in infectious disease consultation. Nestor nt noted to have polymicrobial urinary tract infection with pseudomonas, MRSA and Proteus mirabilis. The patient was started on broad spectrum antibiotics and later on, the patient's recurrent urinar y tract infection with Providencia stuartii was multi-drug resistant and was getting cefepime. The patient was also evaluated by Dr. Brown's group in pulmonology consultation. The patient has been weaned to T tube with 28% FIO2, weaned off ventilator and was comfortable. The patient was also ev aluated and followed by Dr. Barker for elevated BUN and creatinine. The patient is status post right nephrectomy in left kidney disease with renal cyst and left nephrolithiasis. BUN and creatinine wa s closely monitored and the patient's creatinine is 1.6, which is the patient's baseline gas on prop ofol. The patient was also evaluated by Dr. Chavez in cardiology consultation due to hypertension. Patient echo with preserved ejection fraction. The patient's condition overall improved and leila gill will be discharged to [facility] nursing [facility]. CONDITION ON DISCHARGE: Hemodynamically stable. ACTIVITY: As patient tolerates. DISCHARGE DIET: Continue current diet. DISCHARGE MEDICATIONS: 1. Tylenol p.r.n. 2. DuoNeb q.6h. 3. Cefepime 1 gram daily until 05/28/2016. 4. Bicitra. 5. Colace. 6. Lovenox. 7. Neurontin. 8. [place] p.r.n. for pain. 9. Protonix. 10. MiraLax. 11. Silver nitrate topical. 12. Ambien. Interdisciplinary of care was established for this patient. Plan of care was discussed with Dr. Jonathan comer. Dictated By: AISSATOU DUNCAN LAUNDRY PRESSER for JOSÉ ANTONIO MIRZA MD SR/NTS Conf#: [id number] DID#: [id number]
[2016-05-24 20:21] VITALS: BP 141/88; RESP 16
[2016-05-24] MEDS: ZOLPIDEM 5 MG TAB PO PRN (21:36)
--- NOTE | 2016-05-24 22:45 | PN ---
Date/Time of Note Date/Time of Note DATE: 05/24/16 TIME: 22:45 Assessment/Plan VTE Prophylaxis VTE Prophylaxis Intervention: SCD's Lines/Catheters IV Catheter Type (from Nrsg): PICC Line Central line still needed: No Urinary Cath still in place: No Assessment/Plan Assessment/Plan Acute kidney injury Hypotension Sepsis Respiratory Failure Preserved EF on echocardiogram March 02, 2016 History of intermittent Mobitz I > sinus tachy Chronic pain syndrome -s/p hypotension but now fairly stable -renal insuff stable - IV fluids as per our nephrology colleagues. Subjective 24 Hr Interval Summary Free Text/Dictation The jpatient with no cahnge Exam/Review of Systems Vital Signs Vitals Vital Signs Date Time Temp Pulse Resp B/P Pulse Ox O2 Delivery O2 Flow Rate FiO2 05/24/16 20:21 98.0 80 16 141/88 97 05/24/16 19:47 Aerosol 5.0 28 T Tube Intake and Output 05/23/16 05/23/16 05/24/16 15:00 23:00 07:00 Intake Total 100 ml 2220 ml 900 ml Output Total 2300 ml Balance 100 ml -80 ml 900 ml Results Result Diagram: 05/24/16 0545 05/24/16 1620 Results 24 hrs Laboratory Tests Test 05/24/16 05:45 05/24/16 16:20 White Blood Count 3.5 L Red Blood Count 3.07 L Hemoglobin 9.3 L Hematocrit 31.4 L Mean Corpuscular Volume 102.3 H Mean Corpuscular Hemoglobin 30.3 Mean Corpuscular Hemoglobin Concent 29.6 L Red Cell Distribution Width 13.4 Platelet Count 163 Mean Platelet Volume 11.6 H Neutrophils % 63.4 Lymphocytes % 20.0 Monocytes % 12.9 H Eosinophils % 3.1 Basophils % 0.3 Nucleated Red Blood Cells % 0.0 Neutrophils # 2.2 Lymphocytes # 0.7 L Monocytes # 0.5 Eosinophils # 0.1 Basophils # 0.0 Nucleated Red Blood Cells # 0.0 Sodium Level 144 Potassium Level 5.2 H 5.2 H Chloride Level 109 Carbon Dioxide Level 24 Anion Gap 16 Blood Urea Nitrogen 48 H Creatinine 1.62 H Glucose Level 93 Calcium Level 9.0 Medications Medications Current Medications Enoxaparin Sodium (Lovenox) 30 mg DAILY SC Last administered on 05/21/16 09:12 ; Admin Dose 30 MG; Start 05/04/16 at 09:00 Pantoprazole (Protonix Tab) 40 mg DAILY@06 PO Last administered on 05/24/16 06 :17; Admin Dose 40 MG; Start 05/04/16 at 06:00 Citric Acid/ Sodium Citrate (Bicitra) 30 ml TID PO Last administered on 09:10; Admin Dose 30 ML; Start 05/04/16 at 13:00 Zolpidem Tartrate (Ambien) 5 mg HS PRN PO INSOMNIA Last administered on 21:36; Admin Dose 5 MG; Start 05/05/16 at 20:30 IV Flush (NS 10 ml) 10 ml PRN PRN IV IV PROTOCOL Last administered on 17:42; Admin Dose 10 ML; Start 05/06/16 at 12:30 Miscellaneous Information 1 ea NOTE XX ; Start 05/06/16 at 15:30 Glucose (Glutose) 15 gm Q15M PRN PO DECREASED GLUCOSE; Start 05/06/16 at 15:30 Glucose (Glutose) 22.5 gm Q15M PRN PO DECREASED GLUCOSE; Start 05/06/16 at 15: 30 Dextrose (D50w Syringe) 25 ml Q15M PRN IV DECREASED GLUCOSE; Start 05/06/16 at 15:30 Dextrose (D50w Syringe) 50 ml Q15M PRN IV DECREASED GLUCOSE; Start 05/06/16 at 15:30 Glucagon (Glucagen) 1 mg Q15M PRN IM DECREASED GLUCOSE; Start 05/06/16 at 15:30 Glucose (Glutose) 15 gm Q15M PRN BUCCAL DECREASED GLUCOSE; Start 05/06/16 at 15 :30 Gabapentin (Neurontin Liquid) 100 mg TID GTB Last administered on 05/24/16 21: 35; Admin Dose 100 MG; Start 05/07/16 at 22:00 Polyethylene Glycol (Miralax) 17 gm DAILY PRN PO CONSTIPATION; Start 05/10/16 at 14:00 Acetaminophen (Tylenol Tab) 650 mg Q6H PRN PO PAIN AND OR ELEVATED TEMP Last administered on 05/15/16 19:59; Admin Dose 650 MG; Start 05/12/16 at 15:00 Silver Nitrate (Silver Nitrate Swabs) 1 stick Q7D TOP Last administered on 05/21 15:22; Admin Dose 1 STICK; Start 05/14/16 at 09:30 Hydromorphone HCl 0.5 mg 0.5 mg Q4H PRN IV SEVERE PAIN LEVEL 7-10 Last administered on 05/24/16 20:24; Admin Dose 0.5 MG; Start 05/18/16 at 20:30 Sodium Chloride 1,000 ml @ 70 mls/hr [id number] IV Last administered on 06:17; Admin Dose 70 MLS/HR; Start 05/20/16 at 09:00 Cefepime HCl (Maxipime 1gm/50 ml (Pmx)) 50 ml @ 100 mls/hr DAILY IVPB Last administered on 05/24/16 09:06; Admin Dose 100 MLS/HR; Start 05/21/16 at 14:00 Docusate Sodium (Colace Liquid Cup) 100 mg BID GTB Last administered on 21:25; Admin Dose 100 MG; Start 05/22/16 at 21:00 YIN RUSH MD May 24, 2016 22:45
--- NOTE | 2016-05-24 22:49 | PN ---
Date/Time of Note Date/Time of Note DATE: 05/24/16 TIME: 22:48 Assessment/Plan VTE Prophylaxis VTE Prophylaxis Intervention: SCD's Lines/Catheters IV Catheter Type (from Nrsg): PICC Line Central line still needed: Yes Urinary Cath still in place: No Assessment/Plan Assessment/Plan Acute kidney injury Hypotension Sepsis Respiratory Failure Preserved EF on echocardiogram March 02, 2016 History of intermittent Mobitz I > sinus tachy Chronic pain syndrome -s/p hypotension but now fairly stable -renal insuff stable - IV fluids as per our nephrology colleagues. Subjective 24 Hr Interval Summary Free Text/Dictation the patient with no cahgne Exam/Review of Systems Vital Signs Vitals Vital Signs Date Time Temp Pulse Resp B/P Pulse Ox O2 Delivery O2 Flow Rate FiO2 05/24/16 20:21 98.0 80 16 141/88 97 05/24/16 19:47 Aerosol 5.0 28 T Tube Intake and Output 05/23/16 05/23/16 05/24/16 15:00 23:00 07:00 Intake Total 100 ml 2220 ml 900 ml Output Total 2300 ml Balance 100 ml -80 ml 900 ml Results Result Diagram: 05/24/16 0545 05/24/16 1620 Results 24 hrs Laboratory Tests Test 05/24/16 05:45 05/24/16 16:20 White Blood Count 3.5 L Red Blood Count 3.07 L Hemoglobin 9.3 L Hematocrit 31.4 L Mean Corpuscular Volume 102.3 H Mean Corpuscular Hemoglobin 30.3 Mean Corpuscular Hemoglobin Concent 29.6 L Red Cell Distribution Width 13.4 Platelet Count 163 Mean Platelet Volume 11.6 H Neutrophils % 63.4 Lymphocytes % 20.0 Monocytes % 12.9 H Eosinophils % 3.1 Basophils % 0.3 Nucleated Red Blood Cells % 0.0 Neutrophils # 2.2 Lymphocytes # 0.7 L Monocytes # 0.5 Eosinophils # 0.1 Basophils # 0.0 Nucleated Red Blood Cells # 0.0 Sodium Level 144 Potassium Level 5.2 H 5.2 H Chloride Level 109 Carbon Dioxide Level 24 Anion Gap 16 Blood Urea Nitrogen 48 H Creatinine 1.62 H Glucose Level 93 Calcium Level 9.0 Medications Medications Current Medications Enoxaparin Sodium (Lovenox) 30 mg DAILY SC Last administered on 05/21/16t 09:12 ; Admin Dose 30 MG; Start 05/04/16 at 09:00 Pantoprazole (Protonix Tab) 40 mg DAILY@06 PO Last administered on 05/24/16 06 :17; Admin Dose 40 MG; Start 05/04/16 at 06:00 Citric Acid/ Sodium Citrate (Bicitra) 30 ml TID PO Last administered on 09:10; Admin Dose 30 ML; Start 05/04/16 at 13:00 Zolpidem Tartrate (Ambien) 5 mg HS PRN PO INSOMNIA Last administered on 21:36; Admin Dose 5 MG; Start 05/05/16 at 20:30 IV Flush (NS 10 ml) 10 ml PRN PRN IV IV PROTOCOL Last administered on 17:42; Admin Dose 10 ML; Start 05/06/16 at 12:30 Miscellaneous Information 1 ea NOTE XX ; Start 05/06/16 at 15:30 Glucose (Glutose) 15 gm Q15M PRN PO DECREASED GLUCOSE; Start 05/06/16 at 15:30 Glucose (Glutose) 22.5 gm Q15M PRN PO DECREASED GLUCOSE; Start 05/06/16 at 15: 30 Dextrose (D50w Syringe) 25 ml Q15M PRN IV DECREASED GLUCOSE; Start 05/06/16 at 15:30 Dextrose (D50w Syringe) 50 ml Q15M PRN IV DECREASED GLUCOSE; Start 05/06/16 at 15:30 Glucagon (Glucagen) 1 mg Q15M PRN IM DECREASED GLUCOSE; Start 05/06/16 at 15:30 Glucose (Glutose) 15 gm Q15M PRN BUCCAL DECREASED GLUCOSE; Start 05/06/16 at 15 :30 Gabapentin (Neurontin Liquid) 100 mg TID GTB Last administered on 05/24/16 21: 35; Admin Dose 100 MG; Start 05/07/16 at 22:00 Polyethylene Glycol (Miralax) 17 gm DAILY PRN PO CONSTIPATION; Start 05/10/16 at 14:00 Acetaminophen (Tylenol Tab) 650 mg Q6H PRN PO PAIN AND OR ELEVATED TEMP Last administered on 05/15/16 19:59; Admin Dose 650 MG; Start 05/12/16 at 15:00 Silver Nitrate (Silver Nitrate Swabs) 1 stick Q7D TOP Last administered on 05/21 15:22; Admin Dose 1 STICK; Start 05/14/16 at 09:30 Hydromorphone HCl 0.5 mg 0.5 mg Q4H PRN IV SEVERE PAIN LEVEL 7-10 Last administered on 05/24/16 20:24; Admin Dose 0.5 MG; Start 05/18/16 at 20:30 Sodium Chloride 1,000 ml @ 70 mls/hr [id number] IV Last administered on 06:17; Admin Dose 70 MLS/HR; Start 05/20/16 at 09:00 Cefepime HCl (Maxipime 1gm/50 ml (Pmx)) 50 ml @ 100 mls/hr DAILY IVPB Last administered on 05/24/16 09:06; Admin Dose 100 MLS/HR; Start 05/21/16 at 14:00 Docusate Sodium (Colace Liquid Cup) 100 mg BID GTB Last administered on 21:25; Admin Dose 100 MG; Start 05/22/16 at 21:00 YIN RUSH MD May 24, 2016 22:49
[2016-05-24] MEDS: ALBUTEROL/IPRATROPIUM (NEB) 3 ML AMP HHN PRN (23:36)
[2016-05-25] MEDS: HYDROmorphONE 1 MG/ML SYG IV PRN ×2 (00:34→04:47)
[2016-05-25] MEDS: SOD CHLORIDE 0.45% 1,000 ML IV SCH (03:24)
[2016-05-25] MEDS: PANTOPRAZOLE (EC) 40 MG TAB PO SCH (06:08)
[2016-05-25 06:59] LABS: CALCIUM 8.6 mg/dl (8.4-10.2); CREATININE 1.66 mg/dl (0.61-1.24); POTASSIUM 4.9 mmol/L (3.5-5.1)
[2016-05-25 07:36] VITALS: BP 97/64; RESP 19
[2016-05-25] MEDS: ENOXAPARIN 30 MG/0.3 ML SYG SC SCH (09:00)
[2016-05-25] MEDS: DOCUSATE SODIUM 10 MG/ML (10ML CUP) GTB SCH (09:00)
[2016-05-25] MEDS: CEFEPIME 1GM/50 ML (PMX) 50 ML IVPB SCH (09:27)
[2016-05-25] MEDS: GABAPENTIN (50 MG/ML PO SYG) GTB SCH (09:35)
[2016-05-25] MEDS: CITRIC ACID/NA CITRATE 30 ML CUP PO SCH (09:36)
--- NOTE | 2016-05-25 10:38 | PN ---
Date/Time of Note Date/Time of Note DATE: 05/25/16 TIME: 10:37 Assessment/Plan VTE Prophylaxis VTE Prophylaxis Intervention: SCD's Lines/Catheters [facility] Type [facility] PICC Line Central line still needed: Yes Urinary Cath still in place: No Assessment/Plan Chief Complaint/Hosp Course ASSESSMENT AND PLAN: 1. Polymicrobial Urinary tract infection. S/p treatment. Dr. Maciel is following patient in infection disease consultation. 2. Acute kidney injury on top of chronic kidney disease. Status post right nephrectomy. Left nephrolithiasis and renal cyst. Dr. Barker is following in nephrology consultation. Continue to monitor BUN and creatinine. 3. Ventilator-dependent respiratory failure with tracheostomy. is following patient in pulmonary consultation. Continue bronchodilators and ventilatory support. 4. Multiple decubitus ulcers present on admission. Continue zinc sulfate, multivitamins and offloading and current wound care. 5. Cervical spine injury with paraplegia. 6. Bipolar disorder with psychosis. Continue patient on risperidone b.i.d. and Lexapro. 7. Iron deficiency anemia. Continue patient on iron supplements. 8. Neurogenic bladder with suprapubic catheter. 9. Dysphagia with PEG. D/C to [facility] Continue Lovenox for deep venous thrombosis prophylaxis and Protonix for peptic ulcer disease prophylaxis. Further recommendations based on clinical course. Plan of care discussed with Dr. Barreto. Problems: Subjective 24 Hr Interval Summary Free Text/Dictation NAD, stable. K is wnl. Exam/Review of Systems Vital Signs Vitals Vital Signs Date Time Temp Pulse Resp B/P Pulse Ox O2 Delivery O2 Flow Rate FiO2 05/25/16 07:50 82 20 97 Aerosol 5.0 28 T Tube 05/25/16 07:36 97.8 97/64 Intake and Output 05/24/16 05/24/16 05/25/16 14:59 22:59 06:59 Intake Total 480 ml 650 ml 1400 ml Output Total 200 ml 1500 ml 1200 ml Balance 280 ml -850 ml 200 ml Exam PHYSICAL ASSESSMENT: GENERAL: Well-developed, debilitated, cachectic male currently is awake, alert , follows immediate commands. HEENT: Head is atraumatic, normocephalic. PERRLA. NECK: Supple. There is a tracheostomy at the base of the neck with no bleeding. LUNGS: The patient has scattered rhonchi bilaterally, slightly diminished at the bases. There is no wheezing noted. CARDIOVASCULAR: Normal S1, S2. No murmurs, gallops, clicks, rubs noted. The patient is slightly tachycardic. ABDOMEN: Flat, soft, nondistended, nontender. G-tube with intact stoma. The patient also has a suprapubic catheter with intact stoma. EXTREMITIES: Contracted. SKIN: The patient has sacral ulcers present on admission. There is no rash, petechiae noted. NEUROLOGIC: The patient is awake, alert and oriented, following immediate commands, with paraplegia. Results Result Diagram: 05/24/16 0545 05/25/16 0551 Results 24 hrs Laboratory Tests Test 05/24/16 16:20 05/25/16 05:51 Potassium Level 5.2 H 4.9 Sodium Level 143 Chloride Level 112 H Carbon Dioxide Level 23 Anion Gap 13 Blood Urea Nitrogen 48 H Creatinine 1.66 H Glucose Level 88 Calcium Level 8.6 Medications Medications Current Medications Enoxaparin Sodium (Lovenox) 30 mg DAILY SC Last administered on 05/21/16 09:12 ; Admin Dose 30 MG; Start 05/04/16 at 09:00 Pantoprazole (Protonix Tab) 40 mg DAILY@06 PO Last administered on 05/25/16 06 :08; Admin Dose 40 MG; Start 05/04/16 at 06:00 Citric Acid/ Sodium Citrate (Bicitra) 30 ml TID PO Last administered on 09:36; Admin Dose 30 ML; Start 05/04/16 at 13:00 Zolpidem Tartrate (Ambien) 5 mg HS PRN PO INSOMNIA Last administered on 21:36; Admin Dose 5 MG; Start 05/05/16 at 20:30 IV Flush (NS 10 ml) 10 ml PRN PRN IV IV PROTOCOL Last administered on 17:42; Admin Dose 10 ML; Start 05/06/16 at 12:30 Miscellaneous Information 1 ea NOTE XX ; Start 05/06/16 at 15:30 Glucose (Glutose) 15 gm Q15M PRN PO DECREASED GLUCOSE; Start 05/06/16 at 15:30 Glucose (Glutose) 22.5 gm Q15M PRN PO DECREASED GLUCOSE; Start 05/06/16 at 15: 30 Dextrose (D50w Syringe) 25 ml Q15M PRN IV DECREASED GLUCOSE; Start 05/06/16 at 15:30 Dextrose (D50w Syringe) 50 ml Q15M PRN IV DECREASED GLUCOSE; Start 05/06/16 at 15:30 Glucagon (Glucagen) 1 mg Q15M PRN IM DECREASED GLUCOSE; Start 05/06/16 at 15:30 Glucose (Glutose) 15 gm Q15M PRN BUCCAL DECREASED GLUCOSE; Start 05/06/16 at 15 :30 Gabapentin (Neurontin Liquid) 100 mg TID GTB Last administered on 05/25/16 09: 35; Admin Dose 100 MG; Start 05/07/16 at 22:00 Polyethylene Glycol (Miralax) 17 gm DAILY PRN PO CONSTIPATION; Start 05/10/16 at 14:00 Acetaminophen (Tylenol Tab) 650 mg Q6H PRN PO PAIN AND OR ELEVATED TEMP Last administered on 05/15/16 19:59; Admin Dose 650 MG; Start 05/12/16 at 15:00 Silver Nitrate (Silver Nitrate Swabs) 1 stick Q7D TOP Last administered on 05/21 15:22; Admin Dose 1 STICK; Start 05/14/16 at 09:30 Hydromorphone HCl 0.5 mg 0.5 mg Q4H PRN IV SEVERE PAIN LEVEL 7-10 Last administered on 05/25/16 04:47; Admin Dose 0.5 MG; Start 05/18/16 at 20:30 Sodium Chloride 1,000 ml @ 70 mls/hr [id number] IV Last administered on 23:01; Admin Dose 70 MLS/HR; Start 05/20/16 at 09:00 Cefepime HCl (Maxipime 1gm/50 ml (Pmx)) 50 ml @ 100 mls/hr DAILY IVPB Last administered on 05/25/16 09:27; Admin Dose 100 MLS/HR; Start 05/21/16 at 14:00 Docusate Sodium (Colace Liquid Cup) 100 mg BID GTB Last administered on 21:25; Admin Dose 100 MG; Start 05/22/16 at 21:00 AISSATOU DUNCAN May 25, 2016 10:38
--- NOTE | 2016-05-25 11:31 | CONS ---
Date/Time of Note Date/Time of Note DATE: 05/25/16 TIME: 11:30 Assessment/Plan Assessment/Plan Additional Assessment/Plan 1. Septic shock- s/p levophed 2. BELINDA due to ATN due to septic shock 3. acute hyperkalemia due to BELINDA due to ATN - now improved to 5.2 after one dose of kayexalate yesterday 3. History of a previous cardiac arrest, had a G-tube and tracheostomy in place. 4. History of coronary artery disease, status post coronary artery bypass graft. 5. History of previous aortic valve replacement, bioprosthetic valve PLAN: Cr improved to 1.6 today pt made good urine output, BP stable d/c to SNF today will follow up Consultation Date/Type/Reason Admit Date/Time Initial Consult Date 05/03/2016 Type of Consultation: NEPHROLOGY Referring Provider: JOSÉ ANTONIO MIRZA MD 24 HR Interval Summary Free Text/Dictation doing ok, BP stable, Cr stable, plan for d/c to SNF today Exam/Review of Systems Vital Signs Vitals Vital Signs Date Time Temp Pulse Resp B/P Pulse Ox O2 Delivery O2 Flow Rate FiO2 05/25/16 07:50 82 20 97 Aerosol 5.0 28 T Tube 05/25/16 07:36 97.8 97/64 Intake and Output 05/24/16 05/24/16 05/25/16 15:00 23:00 07:00 Intake Total 480 ml 1650 ml 400 ml Output Total 200 ml 1500 ml 1200 ml Balance 280 ml 150 ml -800 ml Exam GENERAL: Chronically ill-appearing, quadriplegic man who is awake, in no distress. HEENT: Head atraumatic, normocephalic. Sclerae anicteric. Buccal mucosa dry. NECK: Supple. Tracheostomy present. CHEST: Rise symmetrical. Breath sounds diminished to bases. HEART: S1, S2. ABDOMEN: Soft, bowel sounds present. EXTREMITIES: Wasted, contractured. Results Result Diagram: 05/24/16 0545 05/25/16 0551 Results 24 hrs Laboratory Tests Test 05/24/16 16:20 05/25/16 05:51 Potassium Level 5.2 H 4.9 Sodium Level 143 Chloride Level 112 H Carbon Dioxide Level 23 Anion Gap 13 Blood Urea Nitrogen 48 H Creatinine 1.66 H Glucose Level 88 Calcium Level 8.6 Medications Medications Current Medications Enoxaparin Sodium (Lovenox) 30 mg DAILY SC Last administered on 05/21/16 09:12 ; Admin Dose 30 MG; Start 05/04/16 at 09:00 Pantoprazole (Protonix Tab) 40 mg DAILY@06 PO Last administered on 05/25/16 06 :08; Admin Dose 40 MG; Start 05/04/16 at 06:00 Citric Acid/ Sodium Citrate (Bicitra) 30 ml TID PO Last administered on 09:36; Admin Dose 30 ML; Start 05/04/16 at 13:00 Zolpidem Tartrate (Ambien) 5 mg HS PRN PO INSOMNIA Last administered on 21:36; Admin Dose 5 MG; Start 05/05/16 at 20:30 IV Flush (NS 10 ml) 10 ml PRN PRN IV IV PROTOCOL Last administered on 17:42; Admin Dose 10 ML; Start 05/06/16 at 12:30 Miscellaneous Information 1 ea NOTE XX ; Start 05/06/16 at 15:30 Glucose (Glutose) 15 gm Q15M PRN PO DECREASED GLUCOSE; Start 05/06/16 at 15:30 Glucose (Glutose) 22.5 gm Q15M PRN PO DECREASED GLUCOSE; Start 05/06/16 at 15: 30 Dextrose (D50w Syringe) 25 ml Q15M PRN IV DECREASED GLUCOSE; Start 05/06/16 at 15:30 Dextrose (D50w Syringe) 50 ml Q15M PRN IV DECREASED GLUCOSE; Start 05/06/16 at 15:30 Glucagon (Glucagen) 1 mg Q15M PRN IM DECREASED GLUCOSE; Start 05/06/16 at 15:30 Glucose (Glutose) 15 gm Q15M PRN BUCCAL DECREASED GLUCOSE; Start 05/06/16 at 15 :30 Gabapentin (Neurontin Liquid) 100 mg TID GTB Last administered on 05/25/16 09: 35; Admin Dose 100 MG; Start 05/07/16 at 22:00 Polyethylene Glycol (Miralax) 17 gm DAILY PRN PO CONSTIPATION; Start 05/10/16 at 14:00 Acetaminophen (Tylenol Tab) 650 mg Q6H PRN PO PAIN AND OR ELEVATED TEMP Last administered on 05/15/16 19:59; Admin Dose 650 MG; Start 05/12/16 at 15:00 Silver Nitrate (Silver Nitrate Swabs) 1 stick Q7D TOP Last administered on 05/21 15:22; Admin Dose 1 STICK; Start 05/14/16 at 09:30 Hydromorphone HCl 0.5 mg 0.5 mg Q4H PRN IV SEVERE PAIN LEVEL 7-10 Last administered on 05/25/16 04:47; Admin Dose 0.5 MG; Start 05/18/16 at 20:30 Sodium Chloride 1,000 ml @ 70 mls/hr [id number] IV Last administered on 23:01; Admin Dose 70 MLS/HR; Start 05/20/16 at 09:00 Cefepime HCl (Maxipime 1gm/50 ml (Pmx)) 50 ml @ 100 mls/hr DAILY IVPB Last administered on 05/25/16 09:27; Admin Dose 100 MLS/HR; Start 05/21/16 at 14:00 Docusate Sodium (Colace Liquid Cup) 100 mg BID GTB Last administered on 21:25; Admin Dose 100 MG; Start 05/22/16 at 21:00 TIARA CISNEROS MD May 25, 2016 11:31
== END 2016-05-25 12:15 | DRG 682 ==
LOC: E/R 09:43 → ICU 05-04 12:27 → MS2 05-04 17:18 → TEL 05-07 03:42 → MS2 05-15 12:57 → ICU 05-18 22:55 → MS2 05-20 19:21
PROVIDERS: ADMIT Internal Medicine; ATTEND Internal Medicine
PROC: 5A1955Z Respiratory Ventilation, Greater than 96 Consecutive Hours (ICD-10-PCS; principal; 2016-05-04)
PROC: 4A133R1 Monitoring of Arterial Saturation, Peripheral, Percutaneous Approach (ICD-10-PCS; 2016-05-04)
PROC: 02HV33Z Insertion of Infusion Device into Superior Vena Cava, Percutaneous Approach (ICD-10-PCS; 2016-05-06)
PROC: B548ZZA Ultrasonography of Superior Vena Cava, Guidance (ICD-10-PCS; 2016-05-06)
DX: N17.0 Acute kidney failure with tubular necrosis (principal); A41.9 Sepsis, unspecified organism; R65.21 Severe sepsis with septic shock; Z99.11 Dependence on respirator [ventilator] status; L89.154 Pressure ulcer of sacral region, stage 4; E87.0 Hyperosmolality and hypernatremia; J96.10 Chronic respiratory failure, unspecified whether with hypoxia or hypercapnia; N39.0 Urinary tract infection, site not specified; G82.20 Paraplegia, unspecified; E87.2 Acidosis; R13.10 Dysphagia, unspecified; N31.9 Neuromuscular dysfunction of bladder, unspecified; Z93.0 Tracheostomy status; E87.6 Hypokalemia; Z93.1 Gastrostomy status; N18.9 Chronic kidney disease, unspecified; F31.9 Bipolar disorder, unspecified; D50.9 Iron deficiency anemia, unspecified; K21.9 Gastro-esophageal reflux disease without esophagitis; Z90.5 Acquired absence of kidney; G89.4 Chronic pain syndrome; I25.10 Atherosclerotic heart disease of native coronary artery without angina pectoris; Z95.1 Presence of aortocoronary bypass graft; Z95.3 Presence of xenogenic heart valve; R79.89 Other specified abnormal findings of blood chemistry; R33.9 Retention of urine, unspecified; Z93.59 Other cystostomy status; B96.5 Pseudomonas (aeruginosa) (mallei) (pseudomallei) as the cause of diseases classified elsewhere; B96.4 Proteus (mirabilis) (morganii) as the cause of diseases classified elsewhere; B95.62 Methicillin resistant Staphylococcus aureus infection as the cause of diseases classified elsewhere
CPT/HCPCS: 36415; 36569; 36600; 71010; 76705; 76937; 80048; 80053; 80076; 80202; 81001; 81003; 82150; 82550; 82553; 82570; 82803; 82962; 83036; 83605; 83690; 83735; 84100; 84132; 84300; 84484; 84560; 85025; 85610; 85730; 87040; 87081; 87086; 89190; 92526; 92610; 93005; 94002; 94003; 94640; 94664; 96365; 96366; 96375; 96376; J0692; J0743; J1170; J1650; J1815; J2270; J2405; J2997; J3370; J3475; J7030; J7042; J7060; J7070

== ENCOUNTER 2016-10-01 08:08 | Inpatient (IN) | payer MEDICARE, OTHER ==
[~2016-10-01] VITALS: Ht 182.9 cm; Wt 59.8 kg
[~2016-10-01 08:08] MED LIST changes: +ALBU2.5V3 NEB; -AMLO5TAB4 GTB; -ASC500 GTB; -BICS GTB; +BISA10SU75 PR; -CALC-277 PO; -CHLO15MO MM; -CRAN3875 GTB; -DANT50CA PO; -DOCU-144 GTB; +DOCU-159 GTB; -ESCI10TA GTB; -FER325 GTB; -LEVA1.2523 NEB; -LEVA1.257 INHALATION; -LORA1TAB GTB; -MULT473L10 PO; -OXYB5TAB22 GTB; -PANT40SU2 GTB; -POLY17PO6 PO; -RISP1TAB3 GTB; -SEVE0.8P PO
[2016-10-01] MEDS ORDERED: SODIUM CHLORIDE 0.9% 1L BAG IV* STA (08:13)
[2016-10-01 08:28] LABS: Allen Test ACCEPTAB; Arterial Base Excess 0.8 mmol/L (-3.0-3); Arterial COHb 0.3 % (0.0-3.0); Arterial Fraction of Oxyhgb 96.6 % (93.0-99.0); Arterial HCO3 28.1 mmol/L (22.0-26.0); Arterial MetHb 0.1 % (0.0-1.5); Arterial Total Hemglobin 9.9 g/dl (12.0-18.0); MODE VENT - AC
--- NOTE | 2016-10-01 09:25 | RADRPT ---
PROCEDURE: XR Chest. CLINICAL INDICATION: Sepsis TECHNIQUE: An AP view of the chest was obtained. COMPARISON: Chest x-ray dated 05/19/2016 FINDINGS: A tracheostomy tube is in place. There is prominence of the interstitial markings. No pleural effusion or pneumothorax is seen. Th e cardiomediastinal silhouette is mildly enlarged . The osseous structures are unremarkable. IMPRESSION: 1. Mild prominence of the interstitial markings, may reflect mild underlying interstitial edema or chronic lung changes. No significant interval change. 2. Tracheostomy tube in place. RPTAT: HH .Camryn Daniel MD, MD Date Time Electronically viewed and signed by .Camryn Daniel MD, MD on 10/01/2016 09:24 .G/
[2016-10-01] MEDS ORDERED: morphine 2 MG INJ IV ONE (10:30)
[2016-10-01 10:53] LABS: ABNORMAL IP MESSAGE 1; EOSINOPHILS % 0.2 % (0.0-7.0); HEMATOCRIT 27.7 % (42.0-52.0); HEMOGLOBIN 8.4 g/dl (14.0-18.0); LYMPHOCYTES # 0.2 10^3/ul (0.8-2.9); LYMPHOCYTES % 2.7 % (15.0-51.0); MEAN CORPUSCULAR HEMOGLOBIN 29.6 pg (29.0-33.0); MEAN CORPUSCULAR HGB CONC 30.3 g/dl (32.0-37.0); MEAN CORPUSCULAR VOLUME 97.5 fl (82.0-101.0); MEAN PLATELET VOLUME 10.2 fl (7.4-10.4); MONOCYTE # 0.4 10^3/ul (0.3-0.9); MONOCYTES % 6.6 % (0.0-11.0); PLATELET COUNT 147 10^3/UL (140-415); POSITIVE DIFF @See below; RED BLOOD COUNT 2.84 10^6/ul (4.70-6.10); RED CELL DISTRIBUTION WIDTH 14.1 % (11.5-14.5); WHITE BLOOD COUNT 5.6 10^3/ul (4.8-10.8)
[2016-10-01 11:21] LABS: ALANINE AMINOTRANSFERASE 30 IU/L (13-69); ALBUMIN 3.3 g/dl (3.3-4.9); ALBUMIN/GLOBULIN RATIO 0.76; ALKALINE PHOSPHATASE 132 IU/L (42-121); ANION GAP 23 (8-16); ASPARTATE AMINO TRANSFERASE 19 IU/L (15-46); BLOOD UREA NITROGEN 60 mg/dl (7-20); CALCIUM 8.9 mg/dl (8.4-10.2); CARBON DIOXIDE 25 mmol/L (21-31); CHLORIDE 95 mmol/L (97-110); CREATININE 2.45 mg/dl (0.61-1.24); GLUCOSE 93 mg/dl (70-220); POTASSIUM 5.2 mmol/L (3.5-5.1); SODIUM 138 mmol/L (135-144); TOTAL PROTEIN 7.6 g/dl (6.1-8.1)
[2016-10-01 11:24] LABS: PARTIAL THROMBOPLASTIN TIME 42.3 Sec (25.0-35.0)
[2016-10-01 11:27] LABS: INR 1.03; PROTIME 13.5 Sec (12.2-14.2); PT RATIO 1.1
[2016-10-01 11:40] LABS: TROPONIN-I < 0.012 ng/ml (0.00-0.12)
[2016-10-01] MEDS ORDERED: ALBU2.5V3 NEB (12:07)
[2016-10-01] MEDS ORDERED: CHLO473M4 MM (12:11)
[2016-10-01] MEDS ORDERED: BICS GTB (12:11)
[2016-10-01] MEDS ORDERED: DOCU-144 GTB (12:12)
[2016-10-01] MEDS ORDERED: BISA10SU75 PR (12:13)
[2016-10-01] MEDS ORDERED: FERR220S13 GTB (12:14)
[2016-10-01] MEDS ORDERED: ENOX30DI10 SQ (12:15)
[2016-10-01] MEDS ORDERED: NA P135E RC (12:15)
[2016-10-01] MEDS ORDERED: POLY17PO6 GTB (12:16)
[2016-10-01] MEDS ORDERED: FOLI1CAP GTB (12:17)
[2016-10-01] MEDS ORDERED: GABA250S2 GTB (12:17)
[2016-10-01] MEDS ORDERED: HYDR-906 GTB ×2 (12:18→12:19)
[2016-10-01] MEDS ORDERED: PANT40TA3 GTB (12:20)
[2016-10-01] MEDS ORDERED: ZINC220T GTB (12:21)
[2016-10-01] MEDS ORDERED: RISS GTB (12:21)
[2016-10-01] MEDS ORDERED: ASCO500S2 GTB (12:22)
[2016-10-01] MEDS ORDERED: CRAN3875 GTB (12:23)
[2016-10-01] MEDS ORDERED: ACET-141 PO (12:23)
[2016-10-01] MEDS ORDERED: ACET-2047 PO (12:24)
[2016-10-01 12:41] LABS: ADD UMIC YES; UR ASCORBIC ACID 20 mg/dL (NEGATIVE); UR BACTERIA FEW /HPF (NONE SEEN); UR BILIRUBIN (Dip) NEGATIVE (NEGATIVE); UR BLOOD (Dip) 1+ mg/dL (NEGATIVE); UR CLARITY CLOUDY (CLEAR); UR COLOR YELLOW (YELLOW); UR GLUCOSE (Dip) NEGATIVE (NEGATIVE); UR KETONES (Dip) NEGATIVE (NEGATIVE); UR LEUKOCYTE ESTERASE (Dip) 3+ Leu/ul (NEGATIVE); UR NITRITE (Dip) NEGATIVE (NEGATIVE); UR NONSQUAMOUS EPITHELIAL CELL 1 /HPF (NONE SEEN); UR RBC 17 /HPF (0-5); UR SPECIFIC GRAVITY (Dip) 1.013 (1.003-1.030); UR SQUAMOUS EPITHELIAL CELL FEW /HPF (FEW); UR TOTAL PROTEIN (Dip) 2+ mg/dl (NEGATIVE); UR UROBILINOGEN (Dip) NEGATIVE (NEGATIVE); UR WBC CLUMPS MANY /HPF (NONE SEEN)
[2016-10-01 12:48] LABS: AADO2 Arterial 238.7 mmHg (7.0-24.0); Allen Test ACCEPTAB; Arterial Base Excess -1.4 mmol/L (-3.0-3); Arterial COHb 0.3 % (0.0-3.0); Arterial Fraction of Oxyhgb 92.4 % (93.0-99.0); Arterial HCO3 24.7 mmol/L (22.0-26.0); Arterial MetHb 0.2 % (0.0-1.5); Arterial Total Hemglobin 9.6 g/dl (12.0-18.0); MODE VENT - AC
[2016-10-01] MEDS ORDERED: VANCOMYCIN 1 GM (PMX) 250 ML IVPB SCH (13:00)
[2016-10-01] MEDS ORDERED: PIPER-TAZO 3.375 GM IV (PMX) 100 ML IVPB ONE (13:00)
--- NOTE | 2016-10-01 13:39 | ERA ---
ER Documentation Chief Complaint Date/Time DATE: 10/01/16 TIME: 13:37 Chief Complaint MILD SOB WITH LOW O2 SATS SINCE THIS AM. IMPROVED WITH O2 AND BAGGING HPI 41-year-old male presents to the emergency department from his care facility for evaluation of shortness of breath with low oxygen saturation. Patient is trach to vent providing very little insight. I reviewed old records on the patient. Patient was just recently hospitalized and released back to his facility. He returns the emergency department by ambulance with the above complaints. I have reviewed the middleware administrator pre-hospital care. Pre-hospital vital signs were reviewed. Pre-hospital diagnostic tests were reviewed. ROS All systems reviewed and are negative except as per history of present illness. Medications Home Meds Reported Medications Acetaminophen* (Acetaminophen*) 650 Mg Tablet, 650 MG PO TRACHE CHANGE, #30 TAB GIVE 30MIN PRIOR TO CHANGE 10/01/16 Acetaminophen* (Acetaminophen*) 500 MG Extra Strength Tablet, 1000 MG PO Q4 Y for MODERATE PAIN LEVEL 4-6, TAB 10/01/16 Cran/Vitc/Mannose/Inulin/Brom (Uti-Stat Liquid) 3,875 Mg/30 Ml Liquid, 3875 MG GTB DAILY 10/01/16 Ascorbic Acid* (Ascorbic Acid*) 500 Mg/5 Ml Syrup, 500 MG GTB DAILY, #300 ML 10/01/16 Zinc Sulfate* (Zinc Sulfate*) 220 Mg Tablet, 220 MG GTB DAILY, TAB 10/01/16 Risperidone* (Risperdal* Liq) 1 Mg/Ml Solution, 1 MG GTB QHS, ML 10/01/16 Pantoprazole* (Protonix*) 40 Mg Tablet., 40 MG GTB DAILY, TAB 10/01/16 Hydrocodone/Acetaminophen ([place] 5-325 Tablet) 1 Each Tablet, 2 EACH GTB BID Y for PAIN MANAGEMENT, TAB 10/01/16 Hydrocodone/Acetaminophen ([place] 5-325 Tablet) 1 Each Tablet, 1 EACH GTB Q6 Y for SEVERE PAIN LEVEL 7-10, TAB 10/01/16 Gabapentin* (Gabapentin* Liq) 250 Mg/5 Ml Solution, 100 MG GTB TID, ML 10/01/16 Folic Acid/Vitamin B Comp W-C (Nephrocaps Capsule) 1 Mg Capsule, 1 MG GTB DAILY , CAP 10/01/16 Polyethylene Glycol* (Miralax*) 17 Gm Powd.pack, 17 GM GTB DAILY, #30 PACKET 10/01/16 Enoxaparin Sodium* (Lovenox*) 30 Mg/0.3 Ml Disp.syrin, 30 MG SQ DAILY, SYR 10/01/16 Na Phos,M-B/Na Phos,Di-Ba (ENEMA READY TO USE) 135 Ml Enema, 135 ML RC EVERY TWO DAYS Y for CONSTIPATION, ENEMA 10/01/16 Ferrous Sulfate* (Ferrous Sulfate*) 220 Mg/5 Ml Solution, 330 MG GTB DAILY, ML 10/01/16 Bisacodyl* (Bisacodyl*) 10 Mg Supp, 10 MG CO Q24H Y for CONSTIPATION, SUPP 10/01/16 Docusate Sodium* (Colace*) 100 Mg Capsule, 200 MG GTB QHS, #60 CAP 10/01/16 Chlorhexidine Gluconate (Peridex) 473 Ml Mouthwash, 15 ML MM Q12, BOTTLE 10/01/16 Citric Acid/Sodium Citrate* (Bicitra* (PEDIATRIC)) 1 Meq/Ml Soln, 10 MEQ GTB TID for 30 Days, BOTTLE 550-334ML/5MG 10/01/16 Albuterol Sulfate* (Albuterol Sulfate* Neb) 0.083%-3 Ml Neb, 2.5 MG NEB Q6 Y for WHEEZING AND SOB, #30 VIAL 10/01/16 Albuterol Sulfate* (Albuterol Sulfate* Neb) 0.083%-3 Ml Neb, 2.5 MG NEB Q3H Y for WHEEZING AND SOB, #30 VIAL 05/03/16 Magnesium Hydroxide* (Milk Of Magnesia*) 400 Mg/5 Ml Oral.susp, 30 ML GTB DAILY Y for CONSTIPATION, ML 04/16/15 Acetaminophen* (Tylenol*) 325 Mg Tablet, 650 MG GTB Q4H Y for MILD PAIN LEVEL 1- 3, TAB 04/16/15 Discontinued Reported Medications Bisacodyl* (Bisacodyl*) 10 Mg Supp, 10 MG CO DAILY Y for CONSTIPATION, SUPP 05/03/16 Docusate Sodium* (Docusate Sodium*) 100 Mg Capsule, 100 MG GTB BID, #60 CAP 05/03/16 Hydrocodone/Acetaminophen ([place] 5-325 Tablet) 1 Each Tablet, 1 EACH GTB Q6, TAB 02/24/16 Allergies Allergies: Coded Allergies: No Known Allergy (Unverified , 10/01/16) PMhx/Soc History of Surgery: Yes (sx to cervical spine) Anesthesia Reaction: No Hx Neurological Disorder: Yes (cervical spine injury with paralysis, epilepsy) Hx Respiratory Disorders: Yes (trach, vent dependent) Hx Cardiac Disorders: No Hx Psychiatric Problems: Yes (depression, bipolar) Hx Miscellaneous Medical Probl: No Hx Alcohol Use: No Hx Substance Use: No Hx Tobacco Use: No Smoking Status: Never smoker FmHx Noncontributory for chief complaint Physical Exam Vitals Vital Signs Date Time Temp Pulse Resp B/P Pulse Ox O2 Delivery O2 Flow Rate FiO2 10/01/16 11:04 101 24 96/64 97 Mechanical Ventilator 10/01/16 08:12 99.2 115 24 81/57 99 Physical Exam General: frail, bed bound, ill appearing HEENT: Mucous membranes dry, sclera nonicteric Neck: Tracheostomy noted. Ostomy patent. No inflammatory changes noted. No JVD. Cardiovascular: Regular rate and rhythm, no murmurs rubs or gallops. Lungs: Transmission of upper airway sounds. Abdomen: Soft with G-tube appreciated. Nontender to palpation. Bowel sounds noted. : Diaper in place and incontinent. Extremities: Atrophic but atraumatic with no edema, cyanosis or clubbing. Neurologic: Baseline organic brain syndrome noted. Gag reflex week. Motor strength diminished in all 4 extremities but otherwise nonfocal. Skin: Skin breakdown noted per nursing note. Result Diagram: 10/01/16 1036 10/01/16 1036 Results 24 hrs Laboratory Tests Test 10/01/16 08:13 10/01/16 10:34 10/01/16 10:36 10/01/16 10:59 Blood Gas Specimen Source Blood arterial Arterial Blood Date Drawn 10/01/2016 8:20:30 AM Arterial Blood pH (Temp corrected) 7.295 Arterial Blood pCO2 (Temp correct) 59.0mmhg Arterial Blood pO2 (Temp corrected) 91.9mmHG Arterial Blood HCO3 28.1mmol/L Arterial Blood Base Excess 0.8mmol/L Arterial Blood Oxygen Saturation 97.0mmHG Julito Test ACCEPTAB Arterial Blood Gas Puncture Site Right Radial Arterial Blood Carboxyhemoglobin 0.3% Arterial Blood Methemoglobin 0.1% Blood Gas A-a O2 Differential 271.0mmHg Oxyhemoglobin Percent 96.6% Total Hemoglobin 9.9g/dl Blood Gas Temperature 37.0C Blood Gas Respiration Rate 16.0 Blood Gas Actual Respiration Rate 16 Blood Gas Modality VENT - AC FiO2 60.0% Blood Gas Tidal Volume 600.0mL Blood Gas Low PEEP Setting 5.0cmH2O Blood Gas Critical Value Read Back DR. DAO Blood Gas Notified Whom RT Blood Gas Notified Time 10/01/2016 8:28:18 AM Lactic Acid Level 0.7mmol/L White Blood Count 5.610^3/ul Red Blood Count 2.8410^6/ul Hemoglobin 8.4g/dl Hematocrit 27.7% Mean Corpuscular Volume 97.5fl Mean Corpuscular Hemoglobin 29.6pg Mean Corpuscular Hemoglobin Concent 30.3g/dl Red Cell Distribution Width 14.1% Platelet Count 94982^3/UL Mean Platelet Volume 10.2fl Neutrophils % 90.0% Lymphocytes % 2.7% Monocytes % 6.6% Eosinophils % 0.2% Basophils % 0.0% Nucleated Red Blood Cells % 0.0/100WBC Neutrophils # (Manual) 5.110^3/ul Lymphocytes # 0.210^3/ul Monocytes # 0.410^3/ul Eosinophils # 0.010^3/ul Basophils # 0.010^3/ul Nucleated Red Blood Cells # 0.010^3/ul Prothrombin Time 13.5Sec Prothrombin Time Ratio 1.1 INR International Normalized Ratio 1.03 Activated Partial Thromboplast Time 42.3Sec Sodium Level 138mmol/L Potassium Level 5.2mmol/L Chloride Level 95mmol/L Carbon Dioxide Level 25mmol/L Anion Gap 23 Blood Urea Nitrogen 60mg/dl Creatinine 2.45mg/dl Glucose Level 93mg/dl Calcium Level 8.9mg/dl Total Bilirubin 0.0mg/dl Direct Bilirubin 0.00mg/dl Indirect Bilirubin 0.0mg/dl Aspartate Amino Transf (AST/SGOT) 19IU/L Alanine Aminotransferase (ALT/SGPT) 30IU/L Alkaline Phosphatase 132IU/L Troponin I < 0.012ng/ml Total Protein 7.6g/dl Albumin 3.3g/dl Globulin 4.30g/dl Albumin/Globulin Ratio 0.76 Urine Color YELLOW Urine Clarity CLOUDY Urine pH 7.0 Urine Specific [place] 1.013 Urine Ketones NEGATIVEmg/dL Urine Nitrite NEGATIVEmg/dL Urine Bilirubin NEGATIVEmg/dL Urine Urobilinogen NEGATIVEmg/dL Urine Leukocyte Esterase 3+José/ul Urine Microscopic RBC 17/HPF Urine Microscopic WBC 161/HPF Urine Squamous Epithelial Cells FEW/HPF Urine Bacteria FEW/HPF Urine Hemoglobin 1+mg/dL Urine Glucose NEGATIVEmg/dL Urine Total Protein 2+mg/dl Test 10/01/16 11:48 Blood Gas Specimen Source Blood arterial Arterial Blood Date Drawn 10/01/2016 12:37:03 PM Arterial Blood pH (Temp corrected) 7.327 Arterial Blood pCO2 (Temp correct) 48.3mmhg Arterial Blood pO2 (Temp corrected) 63.5mmHG Arterial Blood HCO3 24.7mmol/L Arterial Blood Base Excess -1.4mmol/L Arterial Blood Oxygen Saturation 92.9mmHG Julito Test ACCEPTAB Arterial Blood Gas Puncture Site Right Radial Arterial Blood Carboxyhemoglobin 0.3% Arterial Blood Methemoglobin 0.2% Blood Gas A-a O2 Differential 238.7mmHg Oxyhemoglobin Percent 92.4% Total Hemoglobin 9.6g/dl Blood Gas Temperature 37.0C Blood Gas Respiration Rate 16.0 Blood Gas Actual Respiration Rate 22 Blood Gas Modality VENT - AC FiO2 50.0% Blood Gas Tidal Volume 600.0mL Blood Gas Low PEEP Setting 5.0cmH2O Blood Gas Notified Whom KB Blood Gas Notified Time 10/01/2016 12:48:31 PM Current Medications Medications (Trade) Dose Ordered Sig/Dwain Route PRN Reason Start Time Stop Time Status Last Admin Dose Admin Sodium Chloride (NS) 2,170 ml BOLUS OVER 2 HOURS STAT IV* 10/01/16 08:13 10/01/16 08:14 DC 10/01/16 08:13 Morphine Sulfate 2 mg 2 mg ONCE ONCE IV 10/01/16 10:30 10/01/16 10:31 DC 10/01/16 10:41 Vancomycin HCl 250 ml @ 125 mls/hr ONCE IVPB 10/01/16 13:00 10/01/16 14:59 Piperacillin Sod/ Tazobactam Sod (Zosyn 3.375gm/ 100 ml (Pmx)) 100 ml @ 200 mls/hr ONCE ONCE IVPB 10/01/16 13:00 10/01/16 13:29 DC Procedures/MDM Patient was taken to a room, seen and evaluated. Comfort measures were initiated. Diagnostic tests were ordered and reviewed. 3 LEAD RHYTHM STRIP: Sinus tachycardia EK lead EKG reviewed by myself: Sinus tachycardia Normal Bishop and intervals Nonspecific ST and T-wave changes without ST elevation Impression: Nonspecific EKG RADIOLOGY: reviewed with the radiologist CONSULTATION: Dr. Barreto was notified for admission REEVALUATION: Patient remained hemo-dynamically stable MEDICAL DECISION MAKIN-year-old male with a history of multiple comorbid conditions presents the emergency department with shortness of breath. At this time, I am concerned that he may be developing a ventilator associated pneumonia. He also has worsening renal function from his baseline upon discharge. At this time, given his significant high-risk comorbid conditions, he will be admitted for further observation management and care. Patient may have a ventilator associated pneumonia and does have an ongoing urinary tract infection, but does not appear to be septic at this time with a normal lactate. Antibiotics and cultures have been initiated and this will be monitored. Departure Diagnosis: Primary Impression: Shortness of breath Condition: JENN Simpson Oct 01, 2016 13:39
[2016-10-01] MEDS ORDERED: HYDROCODONE/APAP (5/325) TAB ONE (15:07)
[2016-10-01] MEDS ORDERED: HYDROCODONE/APAP (5/325) TAB PO ONE (15:30)
--- NOTE | 2016-10-01 18:06 | CONS ---
Date/Time of Note Date/Time of Note DATE: 10/01/16 TIME: 18:04 Assessment/Plan Assessment/Plan Additional Assessment/Plan 1. Acute kidney injury secondary to severe prerenal azotemia and possible acute tubular necrosis from sepsis 2. Acute uremia with a BUN of 60, Cr 2.65.- slowly improving with D5W 3. Urinary tract infection with urinalysis positive for nitrites. on IV abx 5. 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 6. History of neurogenic bladder with urinary retention, status post suprapubic catheter. 7. History of previous recurrent urinary tract infections. 8. 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 9. 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 10. Other medical history includes anxiety, depression, bipolar disorder, psychosis. 11. History of right nephrectomy with left renal nephrolithiasis and a left renal cyst measuring 5.3 cm in size. PLAN: start IVF NS at 100cc/hr for prerenal azotemia pt only has left kidney in place, with stone in in left kidney and left renal cyst 5.3cm, in size no evidence of hematuria Preserved EF on echocardiogram March 02, 2016 IV abx for sepsis, levophed prn BP support will follow up Consultation Date/Type/Reason Admit Date/Time 10/01/2016 Date of Consultation: Oct 01, 2016 Type of Consultation: NEPHROLOGY Reason for Consultation acute kidney injury on CKD, Hyperkalemia Referring Provider: JOSÉ ANTONIO MIRZA MD Past Medical History Medical History: other (1. History of cervical spine injury with paraplegia status post tracheostomy, vent-dependent, neurogenic bladder, status post suprapubic catheter.) Social History Smoking Status: Never smoker Exam/Review of Systems Vital Signs Vitals Vital Signs Date Time Temp Pulse Resp B/P Pulse Ox O2 Delivery O2 Flow Rate FiO2 10/01/16 15:53 112 16 98 60 10/01/16 15:28 117/78 Mechanical Ventilator 10/01/16 13:45 97.4 Exam Constitutional: alert Respiratory: diminished breath sounds, Bilateral Coarse BS+, + tracheostomy Cardiovascular: nl pulses, regular rate and rhythm Gastrointestinal: soft, + G tube Musculoskeletal: nl extremities to inspection Extremities: normal pulses Results RENAL US 03/2016: Multiple left renal cysts with the largest measuring 5.3 cm with internal echogenic debris. Increased left renal cortical echogenicity consistent with medical renal disease. Multiple left renal calculi. Status post right nephrectomy. Result Diagram: 10/01/16 1036 10/01/16 1036 Results 24 hrs Laboratory Tests Test 10/01/16 08:13 10/01/16 10:34 10/01/16 10:36 10/01/16 10:59 Blood Gas Specimen Source Blood arterial Arterial Blood Date Drawn 10/01/2016 8:20:30 AM Arterial Blood pH (Temp corrected) 7.295 *L Arterial Blood pCO2 (Temp correct) 59.0 H Arterial Blood pO2 (Temp corrected) 91.9 Arterial Blood HCO3 28.1 H Arterial Blood Base Excess 0.8 Arterial Blood Oxygen Saturation 97.0 Julito Test ACCEPTAB Arterial Blood Gas Puncture Site Right Radial Arterial Blood Carboxyhemoglobin 0.3 Arterial Blood Methemoglobin 0.1 Blood Gas A-a O2 Differential 271.0 H Oxyhemoglobin Percent 96.6 Total Hemoglobin 9.9 L Blood Gas Temperature 37.0 Blood Gas Respiration Rate 16.0 Blood Gas Actual Respiration Rate 16 Blood Gas Modality VENT - AC FiO2 60.0 Blood Gas Tidal Volume 600.0 Blood Gas Low PEEP Setting 5.0 Blood Gas Critical Value Read Back DR. DAO Blood Gas Notified Whom RT Blood Gas Notified Time 10/01/2016 8:28:18 AM Lactic Acid Level 0.7 White Blood Count 5.6 # Red Blood Count 2.84 L Hemoglobin 8.4 L Hematocrit 27.7 L Mean Corpuscular Volume 97.5 Mean Corpuscular Hemoglobin 29.6 Mean Corpuscular Hemoglobin Concent 30.3 L Red Cell Distribution Width 14.1 Platelet Count 147 Mean Platelet Volume 10.2 Neutrophils % 90.0 H Lymphocytes % 2.7 L Monocytes % 6.6 Eosinophils % 0.2 Basophils % 0.0 Nucleated Red Blood Cells % 0.0 Neutrophils # (Manual) 5.1 Lymphocytes # 0.2 L Monocytes # 0.4 Eosinophils # 0.0 Basophils # 0.0 Nucleated Red Blood Cells # 0.0 Prothrombin Time 13.5 Prothrombin Time Ratio 1.1 INR International Normalized Ratio 1.03 Activated Partial Thromboplast Time 42.3 H Sodium Level 138 Potassium Level 5.2 H Chloride Level 95 L Carbon Dioxide Level 25 Anion Gap 23 H Blood Urea Nitrogen 60 H Creatinine 2.45 H Glucose Level 93 Calcium Level 8.9 Total Bilirubin 0.0 L Direct Bilirubin 0.00 Indirect Bilirubin 0.0 Aspartate Amino Transf (AST/SGOT) 19 Alanine Aminotransferase (ALT/SGPT) 30 Alkaline Phosphatase 132 H Troponin I < 0.012 Total Protein 7.6 Albumin 3.3 Globulin 4.30 H Albumin/Globulin Ratio 0.76 Urine Color YELLOW Urine Clarity CLOUDY A Urine pH 7.0 Urine Specific [place] 1.013 Urine Ketones NEGATIVE Urine Nitrite NEGATIVE Urine Bilirubin NEGATIVE Urine Urobilinogen NEGATIVE Urine Leukocyte Esterase 3+ H Urine Microscopic RBC 17 H Urine Microscopic WBC 161 H Urine Squamous Epithelial Cells FEW Urine Bacteria FEW A Urine Hemoglobin 1+ H Urine Glucose NEGATIVE Urine Total Protein 2+ H Test 10/01/16 11:48 Blood Gas Specimen Source Blood arterial Arterial Blood Date Drawn 10/01/2016 12:37:03 PM Arterial Blood pH (Temp corrected) 7.327 L Arterial Blood pCO2 (Temp correct) 48.3 H Arterial Blood pO2 (Temp corrected) 63.5 L Arterial Blood HCO3 24.7 Arterial Blood Base Excess -1.4 Arterial Blood Oxygen Saturation 92.9 L Julito Test ACCEPTAB Arterial Blood Gas Puncture Site Right Radial Arterial Blood Carboxyhemoglobin 0.3 Arterial Blood Methemoglobin 0.2 Blood Gas A-a O2 Differential 238.7 H Oxyhemoglobin Percent 92.4 L Total Hemoglobin 9.6 L Blood Gas Temperature 37.0 Blood Gas Respiration Rate 16.0 Blood Gas Actual Respiration Rate 22 Blood Gas Modality VENT - AC FiO2 50.0 Blood Gas Tidal Volume 600.0 Blood Gas Low PEEP Setting 5.0 Blood Gas Notified Whom KB Blood Gas Notified Time 10/01/2016 12:48:31 PM Medications Medications Current Medications Sodium Polystyrene Sulfonate (Kayexalate) 30 gm ONCE ONCE PO ; Start 10/01/16 at 18:30; Stop 10/01/16 at 18:31; Status UNV TIARA CISENROS MD Oct 01, 2016 18:06
--- NOTE | 2016-10-01 18:13 | HP ---
Date/Time of Note Date/Time of Note DATE: 10/01/16 TIME: 18:02 Assessment/Plan Assessment/Plan Assessment/Plan - Shortness of breath - tRACH TO VENT-dependent respiratory failure - pulmonary consult- dr Ames notified UTI - ID CONSULT- DR Maciel notified - BELINDA on CKD - IVF - Nephrology consult- Dr Barker notifeid. - SNF resident - Bedridden DW D r Estevan HPI/ROS Admit Date/Time Admit Date/Time Hx of Present Illness MILD SOB WITH LOW O2 SATS SINCE THIS AM. IMPROVED WITH O2 AND BAGGING HPI 41-year-old male presents to the emergency department from his care facility for evaluation of shortness of breath with low oxygen saturation. Patient is trach to vent providing very little insight. I reviewed old records on the patient. Patient was just recently hospitalized and released back to his facility. He returns the emergency department by ambulance with the above complaints. I have reviewed the angle shearer pre-hospital care. Pre-hospital vital signs were reviewed. Pre-hospital diagnostic tests were reviewed. ROS All systems reviewed and are negative except as per history of present illness. ROS Allergies Allergies: Coded Allergies: No Known Allergy (Unverified , 10/01/16) Respiratory: no complaints Cardiovascular: no complaints Gastrointestinal: no complaints Genitourinary: no complaints PMH/Family/Social Past Medical History PMhx/Soc History of Surgery: Yes (sx to cervical spine) Anesthesia Reaction: No Hx Neurological Disorder: Yes (cervical spine injury with paralysis, epilepsy) Hx Respiratory Disorders: Yes (trach, vent dependent) Hx Cardiac Disorders: No Hx Psychiatric Problems: Yes (depression, bipolar) Hx Miscellaneous Medical Probl: No Hx Alcohol Use: No Hx Substance Use: No Hx Tobacco Use: No Smoking Status: Never smoker FmHx Noncontributory for chief complaint Social History Smoking Status: Never smoker Exam/Review of Systems Vital Signs Vitals Vital Signs Date Time Temp Pulse Resp B/P Pulse Ox O2 Delivery O2 Flow Rate FiO2 10/01/16 15:53 112 16 98 60 10/01/16 15:28 117/78 Mechanical Ventilator 10/01/16 13:45 97.4 Exam Constitutional: alert Respiratory: diminished breath sounds Cardiovascular: nl pulses, regular rate and rhythm Gastrointestinal: soft Musculoskeletal: nl extremities to inspection Extremities: normal pulses Labs Result Diagram: 10/01/16 1036 10/01/16 1036 NAE VELAZCO Oct 01, 2016 18:12
[2016-10-01] MEDS ORDERED: NA POLYST SULFON 15 GM/60 ML BTL PO ONE (18:30)
--- NOTE | 2016-10-01 18:51 | CONS ---
Date/Time of Note Date/Time of Note DATE: 10/01/16 TIME: 18:50 Consultation Date/Type/Reason Admit Date/Time Date of Consultation: Oct 01, 2016 Type of Consultation: ID Reason for Consultation Antibiotic management Respiratory: no complaints Cardiovascular: no complaints Gastrointestinal: no complaints Genitourinary: no complaints Past Medical History Medical History: other Social History Smoking Status: Never smoker Exam/Review of Systems Vital Signs Vitals Vital Signs Date Time Temp Pulse Resp B/P Pulse Ox O2 Delivery O2 Flow Rate FiO2 10/01/16 18:34 96 21 86/58 97 Mechanical Ventilator 10/01/16 15:53 60 10/01/16 13:45 97.4 Results Result Diagram: 10/01/16 1036 10/01/16 1036 Results 24 hrs Laboratory Tests Test 10/01/16 08:13 10/01/16 10:34 10/01/16 10:36 10/01/16 10:59 Blood Gas Specimen Source Blood arterial Arterial Blood Date Drawn 10/01/2016 8:20:30 AM Arterial Blood pH (Temp corrected) 7.295 *L Arterial Blood pCO2 (Temp correct) 59.0 H Arterial Blood pO2 (Temp corrected) 91.9 Arterial Blood HCO3 28.1 H Arterial Blood Base Excess 0.8 Arterial Blood Oxygen Saturation 97.0 Julito Test ACCEPTAB Arterial Blood Gas Puncture Site Right Radial Arterial Blood Carboxyhemoglobin 0.3 Arterial Blood Methemoglobin 0.1 Blood Gas A-a O2 Differential 271.0 H Oxyhemoglobin Percent 96.6 Total Hemoglobin 9.9 L Blood Gas Temperature 37.0 Blood Gas Respiration Rate 16.0 Blood Gas Actual Respiration Rate 16 Blood Gas Modality VENT - AC FiO2 60.0 Blood Gas Tidal Volume 600.0 Blood Gas Low PEEP Setting 5.0 Blood Gas Critical Value Read Back DR. DAO Blood Gas Notified Whom RT Blood Gas Notified Time 10/01/2016 8:28:18 AM Lactic Acid Level 0.7 White Blood Count 5.6 # Red Blood Count 2.84 L Hemoglobin 8.4 L Hematocrit 27.7 L Mean Corpuscular Volume 97.5 Mean Corpuscular Hemoglobin 29.6 Mean Corpuscular Hemoglobin Concent 30.3 L Red Cell Distribution Width 14.1 Platelet Count 147 Mean Platelet Volume 10.2 Neutrophils % 90.0 H Lymphocytes % 2.7 L Monocytes % 6.6 Eosinophils % 0.2 Basophils % 0.0 Nucleated Red Blood Cells % 0.0 Neutrophils # (Manual) 5.1 Lymphocytes # 0.2 L Monocytes # 0.4 Eosinophils # 0.0 Basophils # 0.0 Nucleated Red Blood Cells # 0.0 Prothrombin Time 13.5 Prothrombin Time Ratio 1.1 INR International Normalized Ratio 1.03 Activated Partial Thromboplast Time 42.3 H Sodium Level 138 Potassium Level 5.2 H Chloride Level 95 L Carbon Dioxide Level 25 Anion Gap 23 H Blood Urea Nitrogen 60 H Creatinine 2.45 H Glucose Level 93 Calcium Level 8.9 Total Bilirubin 0.0 L Direct Bilirubin 0.00 Indirect Bilirubin 0.0 Aspartate Amino Transf (AST/SGOT) 19 Alanine Aminotransferase (ALT/SGPT) 30 Alkaline Phosphatase 132 H Troponin I < 0.012 Total Protein 7.6 Albumin 3.3 Globulin 4.30 H Albumin/Globulin Ratio 0.76 Urine Color YELLOW Urine Clarity CLOUDY A Urine pH 7.0 Urine Specific [place] 1.013 Urine Ketones NEGATIVE Urine Nitrite NEGATIVE Urine Bilirubin NEGATIVE Urine Urobilinogen NEGATIVE Urine Leukocyte Esterase 3+ H Urine Microscopic RBC 17 H Urine Microscopic WBC 161 H Urine Squamous Epithelial Cells FEW Urine Bacteria FEW A Urine Hemoglobin 1+ H Urine Glucose NEGATIVE Urine Total Protein 2+ H Test 10/01/16 11:48 Blood Gas Specimen Source Blood arterial Arterial Blood Date Drawn 10/01/2016 12:37:03 PM Arterial Blood pH (Temp corrected) 7.327 L Arterial Blood pCO2 (Temp correct) 48.3 H Arterial Blood pO2 (Temp corrected) 63.5 L Arterial Blood HCO3 24.7 Arterial Blood Base Excess -1.4 Arterial Blood Oxygen Saturation 92.9 L Julito Test ACCEPTAB Arterial Blood Gas Puncture Site Right Radial Arterial Blood Carboxyhemoglobin 0.3 Arterial Blood Methemoglobin 0.2 Blood Gas A-a O2 Differential 238.7 H Oxyhemoglobin Percent 92.4 L Total Hemoglobin 9.6 L Blood Gas Temperature 37.0 Blood Gas Respiration Rate 16.0 Blood Gas Actual Respiration Rate 22 Blood Gas Modality VENT - AC FiO2 50.0 Blood Gas Tidal Volume 600.0 Blood Gas Low PEEP Setting 5.0 Blood Gas Notified Whom KB Blood Gas Notified Time 10/01/2016 12:48:31 PM Medications Medications Current Medications Sodium Chloride 1,000 ml @ 100 mls/hr Q10H IV ; Start 10/01/16 at 18:30 Cefepime HCl (Maxipime 1gm/50 ml (Pmx)) 50 ml @ 100 mls/hr Q24H IVPB ; Start at 21:00 ANTONELLA STEWART MD Oct 01, 2016 18:51
[2016-10-01] MEDS: SOD CHLORIDE 0.9% 1,000 ML IV SCH (19:44)
--- NOTE | 2016-10-01 19:58 | CONS ---
DATE OF ADMISSION: 10/01/2016 DATE OF CONSULTATION: 10/01/2016 REASON FOR CONSULTATION: Antibiotic management. HISTORY OF PRESENT ILLNESS: The patient is a 41-year-old male, who presents to the emergency room from his care facility with shortness of breath and low oxygen saturation. PAST MEDICAL HISTORY: 1. History of cervical spine injury with paralysis. 2. Epilepsy. 3. Surgery to the cervical spine. 4. The patient is ventilator dependent. 5. Depression and bipolar condition. LABORATORY DATA: As noted, the patient comes in with low O2 oxygenation improved with additional oxygen and with bagging. On admission, his white count is 5.6, H and H of 8.4 and 27.7, platelet count 147,000. BUN and creatinine 60 over 2.45, random glucose of 93. PAST SURGICAL HISTORY: Operations as outlined. FAMILY HISTORY: Noncontributory. SOCIAL HISTORY: The patient is on a trach. Does not smoke, drink, or abuse drugs. ALLERGIES: NONE TO PENICILLIN, SULFA, OR FOODS. MEDICATIONS: Per chart. REVIEW OF SYSTEMS: As per HPI. PHYSICAL EXAMINATION: GENERAL: The patient is a frail, ill-appearing male, who is bed bound, ventilator dependent. He has a trach, he has a G-tube. SKIN: Without generalized rash. HEENT: Within normal limits. NECK: Supple. Lymph nodes, none palpable. Tracheostomy is in place. CHEST: Decreased breath sounds at the bases. HEART: Without murmur or gallop. ABDOMEN: Soft. Nontender. G-tube without exudate. EXTREMITIES: Without cyanosis, clubbing, or edema. He has atrophy in the distal extremities. RECTAL/GENITAL: Deferred. Has a diaper in place. He is incontinent. NEUROLOGICAL: The patient has organic brain syndrome. He has decreased strength in all extremities, but there are no focal neurological abnormalities aside from the fact that he has organic brain syndrome. SUMMARY: Chest x-ray shows mild prominence of interstitial markings, may reflect mild underlying interstitial edema or chronic lung changes. No significant interval change. Tracheostomy in place. The patient was seen in consultation by Dr. Kevin Barker for nephrology. The patient with BUN 60/2.45. Renal ultrasound in March showed multiple left renal cysts, status post right nephrectomy, multiple left renal calculi. The patient was begun on cefepime. His urine showed 3 plus leukocyte esterase and 161 white cells per high-power field consistent with urinary tract infection. IMPRESSION: The patient most likely is septic from urinary tract infection, and therefore was placed on cefepime, which is appropriate. Will continue him on this regimen. He has had blood cultures drawn, stool cultures and urine cultures. I will dictate my findings to Dr. Barreto and Dr. Susan Barker. Dictated By: Barron Maciel MD JD/sera/rojelio /Document#: [id number]
[2016-10-01] MEDS ORDERED: CEFEPIME 1GM/50 ML (PMX) 50 ML IVPB SCH (21:00)
[2016-10-01] MEDS: HYDROCODONE/APAP (5/325) TAB PO SCH (23:02)
[2016-10-02] VITALS (67 sets, daily range): BP systolic 62–156; BP diastolic 12–98; PULSE 64–146; RESP 0–34; TEMP 100
[2016-10-02] MEDS ORDERED: ACETAMINOPHEN 325 MG TAB PO PRN (02:30)
[2016-10-02] MEDS ORDERED: SOD CHLORIDE 0.9% 1,000 ML IV ONE (03:30)
[2016-10-02] MEDS ORDERED: NORepinephrine 8MG/250 ML (PMX 250 ML IV SCH (03:30)
[2016-10-02] MEDS: HYDROCODONE/APAP (5/325) TAB PO SCH ×4 (05:17→23:09)
[2016-10-02 05:41] LABS: ABNORMAL IP MESSAGE 1; BASOPHILS % 0.2 % (0.0-2.0); HEMATOCRIT 29.9 % (42.0-52.0); HEMOGLOBIN 9.4 g/dl (14.0-18.0); LYMPHOCYTES # 0.3 10^3/ul (0.8-2.9); LYMPHOCYTES % 6.4 % (15.0-51.0); MEAN CORPUSCULAR HEMOGLOBIN 30.6 pg (29.0-33.0); MEAN CORPUSCULAR HGB CONC 31.4 g/dl (32.0-37.0); MEAN CORPUSCULAR VOLUME 97.4 fl (82.0-101.0); MONOCYTE # 0.4 10^3/ul (0.3-0.9); MONOCYTES % 8.2 % (0.0-11.0); NEUTROPHILS % 84.8 % (39.0-77.0); PLATELET COUNT 154 10^3/UL (140-415); POSITIVE DIFF @See below; RED BLOOD COUNT 3.07 10^6/ul (4.70-6.10); WHITE BLOOD COUNT 4.9 10^3/ul (4.8-10.8)
[2016-10-02] MEDS: SOD CHLORIDE 0.9% 1,000 ML IV SCH ×2 (06:14→15:59)
[2016-10-02 06:15] LABS: CALCIUM 8.6 mg/dl (8.4-10.2); CREATININE 2.38 mg/dl (0.61-1.24); POTASSIUM 4.8 mmol/L (3.5-5.1)
[2016-10-02] MEDS ORDERED: LIDOCAINE 1% (MPF) 5 ML VIAL SC ONE (09:30)
[2016-10-02] MEDS: CEFEPIME 1GM/50 ML (PMX) 50 ML IVPB SCH ×2 (11:26→21:14)
--- NOTE | 2016-10-02 12:15 | CONS ---
Date/Time of Note Date/Time of Note DATE: 10/02/16 TIME: 12:12 Assessment/Plan Assessment/Plan Additional Assessment/Plan 1. Acute kidney injury secondary to severe prerenal azotemia and possible acute tubular necrosis from sepsis 2. Acute uremia with a BUN of 60, Cr 2.65.- slowly improving with D5W 3. Urinary tract infection with urinalysis positive for nitrites. on IV abx 5. 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 6. History of neurogenic bladder with urinary retention, status post suprapubic catheter. 7. History of previous recurrent urinary tract infections. 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. 9. 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 10. Other medical history includes anxiety, depression, bipolar disorder, psychosis. 11. History of right nephrectomy with left renal nephrolithiasis and a left renal cyst measuring 5.3 cm in size. PLAN: BUN 54, Cr 2.38- continue NS at 100 cc/hr pt only has left kidney in place, with stone in in left kidney and left renal cyst 5.3cm, in size no evidence of hematuria Preserved EF on echocardiogram March 02, 2016 IV abx for sepsis, levophed prn BP support will follow up Consultation Date/Type/Reason Admit Date/Time Oct 01, 2016 at 13:37 Initial Consult Date 10/01/16 Type of Consultation: NEPHROLOGY Referring Provider: JOSÉ ANTONIO MIRZA MD Exam/Review of Systems Vital Signs Vitals Vital Signs Date Time Temp Pulse Resp B/P Pulse Ox O2 Delivery O2 Flow Rate FiO2 10/02/16 08:44 112 16 91 50 10/02/16 07:30 97/64 10/02/16 04:45 100.0 Mechanical Ventilator Intake and Output 10/01/16 10/01/16 10/02/16 14:59 22:59 06:59 Intake Total 18.75 ml Balance 18.75 ml Exam Constitutional: alert Respiratory: diminished breath sounds, Bilateral Coarse BS+, + tracheostomy Cardiovascular: nl pulses, regular rate and rhythm Gastrointestinal: soft, + G tube Musculoskeletal: nl extremities to inspection Extremities: normal pulses Results Result Diagram: 10/02/16 0520 10/02/16 0520 Results 24 hrs Laboratory Tests Test 10/01/16 19:00 10/02/16 05:20 Lactic Acid Level < 0.5 L White Blood Count 4.9 Red Blood Count 3.07 L Hemoglobin 9.4 L Hematocrit 29.9 L Mean Corpuscular Volume 97.4 Mean Corpuscular Hemoglobin 30.6 Mean Corpuscular Hemoglobin Concent 31.4 L Red Cell Distribution Width 14.0 Platelet Count 154 Mean Platelet Volume 10.0 Neutrophils % 84.8 H Lymphocytes % 6.4 L Monocytes % 8.2 Eosinophils % 0.0 Basophils % 0.2 Nucleated Red Blood Cells % 0.0 Neutrophils # (Manual) 4.1 Lymphocytes # 0.3 L Monocytes # 0.4 Eosinophils # 0.0 Basophils # 0.0 Nucleated Red Blood Cells # 0.0 Sodium Level 145 H Potassium Level 4.8 Chloride Level 107 # Carbon Dioxide Level 25 Anion Gap 18 H Blood Urea Nitrogen 54 H Creatinine 2.38 H Glucose Level 88 Calcium Level 8.6 Medications Medications Current Medications Sodium Chloride (NS) 1,000 ml @ 100 mls/hr Q10H IV Last administered on 06:14; Admin Dose 100 MLS/HR; Start 10/01/16 at 18:30 Acetaminophen/ Hydrocodone Bitart ([place] (5/325)) 1 tab Q6 PO Last administered on 10/02/16 11:58; Admin Dose 1 TAB; Start 10/02/16 at 00:00 Acetaminophen 650 mg 650 mg Q4 PRN PO ELEVATED TEMPERATURE Last administered on 10/02/16 03:07; Admin Dose 650 MG; Start 10/02/16 at 02:30 Cefepime HCl 50 ml @ 100 mls/hr BID IVPB Last administered on 10/02/16 11:26 ; Admin Dose 100 MLS/HR; Start 10/02/16 at 09:00 Norepinephrine (Levophed) 250 ml @ 1.875 mls/ hr TITRATE IV Last administered on 10/02/16 06:10; Admin Dose 3.75 MLS/HR; Start 10/02/16 at 03:30 TIARA CISNEROS MD Oct 02, 2016 12:15
--- NOTE | 2016-10-02 12:35 | CONS ---
Date/Time of Note Date/Time of Note DATE: 10/02/16 TIME: 12:29 Assessment/Plan Assessment/Plan Additional Assessment/Plan IMP: 1. Urosepsis 2. ARF 3. VDRF 4. Ruptured Trach Balloon 5. Quadriplegia 6. Seizure d/o RECS: 1. Will need to change trach XLT Distal 8 2. Abx 3. Follow cultures 4. Adjust vent settings 5. IVF; lactate clearance 6. Am labs/CXR/ABG Consultation Date/Type/Reason Admit Date/Time Oct 01, 2016 at 13:37 Type of Consultation: Pulm/CCM Hx of Present Illness Briefly, this is a 41-year-old male with a history of cervical spine injury and quadriplegia, s/p trach on vent, PEG, seizures, bipolar and depression who was admitted for sepsis due to UTI, found to have a ruptured trach cuff. Constitutional: no complaints Eyes: no complaints ENT: no complaints Respiratory: no complaints Cardiovascular: no complaints Gastrointestinal: no complaints Genitourinary: no complaints Musculoskeletal: no complaints Skin: no complaints Neurologic: no complaints Past Medical History as per HPI Medical History: other Past Surgical History Past Surgical Hx: other (Trach and PEG ) Family History Significant Family History: no pertinent family hx Social History Alcohol Use: none Smoking Status: Never smoker Drug Use: none Exam/Review of Systems Vital Signs Vitals Vital Signs Date Time Temp Pulse Resp B/P Pulse Ox O2 Delivery O2 Flow Rate FiO2 10/02/16 08:44 112 16 91 50 10/02/16 07:30 97/64 10/02/16 04:45 100.0 Mechanical Ventilator Intake and Output 10/01/16 10/01/16 10/02/16 15:00 23:00 07:00 Intake Total 18.75 ml Balance 18.75 ml Exam Constitutional: alert, oriented Psych: no complaints Head: atraumatic, normocephalic Eyes: nl conjunctiva, nl sclera ENMT: mucosa pink and moist, nl external ears & nose Neck: non-tender, supple Respiratory: clear to auscultation, normal air movement Cardiovascular: nl pulses, regular rate and rhythm Gastrointestinal: nl liver, spleen, non-tender, soft Musculoskeletal: nl extremities to inspection, nl gait and stance Extremities: normal pulses Results Result Diagram: 8/27/17 0520 8/27/17 0520 Results 24 hrs Laboratory Tests Test 10/01/16 19:00 10/02/16 05:20 Lactic Acid Level < 0.5 L White Blood Count 4.9 Red Blood Count 3.07 L Hemoglobin 9.4 L Hematocrit 29.9 L Mean Corpuscular Volume 97.4 Mean Corpuscular Hemoglobin 30.6 Mean Corpuscular Hemoglobin Concent 31.4 L Red Cell Distribution Width 14.0 Platelet Count 154 Mean Platelet Volume 10.0 Neutrophils % 84.8 H Lymphocytes % 6.4 L Monocytes % 8.2 Eosinophils % 0.0 Basophils % 0.2 Nucleated Red Blood Cells % 0.0 Neutrophils # (Manual) 4.1 Lymphocytes # 0.3 L Monocytes # 0.4 Eosinophils # 0.0 Basophils # 0.0 Nucleated Red Blood Cells # 0.0 Sodium Level 145 H Potassium Level 4.8 Chloride Level 107 # Carbon Dioxide Level 25 Anion Gap 18 H Blood Urea Nitrogen 54 H Creatinine 2.38 H Glucose Level 88 Calcium Level 8.6 Medications Medications Current Medications Sodium Chloride (NS) 1,000 ml @ 100 mls/hr Q10H IV Last administered on 06:14; Admin Dose 100 MLS/HR; Start 10/01/16 at 18:30 Acetaminophen/ Hydrocodone Bitart ([place] (5/325)) 1 tab Q6 PO Last administered on 10/02/16 11:58; Admin Dose 1 TAB; Start 10/02/16 at 00:00 Acetaminophen 650 mg 650 mg Q4 PRN PO ELEVATED TEMPERATURE Last administered on 10/02/16 03:07; Admin Dose 650 MG; Start 10/02/16 at 02:30 Cefepime HCl 50 ml @ 100 mls/hr BID IVPB Last administered on 10/02/16 11:26 ; Admin Dose 100 MLS/HR; Start 10/02/16 at 09:00 Norepinephrine (Levophed) 250 ml @ 1.875 mls/ hr TITRATE IV Last administered on 10/02/16 06:10; Admin Dose 3.75 MLS/HR; Start 10/02/16 at 03:30 SILVIA LUNA MD Oct 02, 2016 12:35
--- NOTE | 2016-10-02 12:52 | OPPN ---
Date/Time of Note Date/Time of Note DATE: 10/02/16 TIME: 12:51 Operative Report Free Text/Dictation PROCEDURE: Tracheostomy tube change INDICATION: Ruptured balloon of existing tube PROCEDURE SPEECH LANGUAGE ASSISTANT: Jose CONSENT: N/A PROCEDURE SUMMARY: The patient was prepped and draped and pre-oxygenated with 100%. The existing XLT Distal 8.0 tube was removed and a new XLT Distal 8 was placed and the obturator was removed. The balloon was inflated. The patient tolerated the procedure. ESTIMATED BLOOD LOSS: None Provider: SILVIA LUNA MD Estimated blood loss: none Transfusion Required: no Specimen: none Grafts/Implants: none Complications: no SILVIA LUNA MD Oct 02, 2016 12:52
--- NOTE | 2016-10-02 16:11 | PN ---
Date/Time of Note Date/Time of Note DATE: 10/02/16 TIME: 16:07 Assessment/Plan VTE Prophylaxis VTE Prophylaxis Intervention: other Lines/Catheters IV Catheter Type (from Nrsg): PICC Line Assessment/Plan Assessment/Plan - Shortness of breath - tRACH TO VENT-dependent respiratory failure - pulmonary consult- dr Ames notified - Trach leak- patient refused to get it fixed yesterday - sp trach change, no leakage note -UTI - ID CONSULT- DR Maciel notified - BELINDA on CKD - IVF - Nephrology consult- Dr Bakrer notified. - SNF resident - Bedridden Total critical care time spent is 30 mins. Further recommendations based on clinical course. Plan of care discussed with Dr. Barreto.Further recommendations based on clinical course. Plan of care discussed with Dr. Barreto. Subjective 24 Hr Interval Summary Free Text/Dictation Alert, awake, follows simple commands, seems comfortable, Trach leak- patient refused to get it fixed yesterday- sp trach change, no leakage note. dw staff Constitutional: requiring IVF, requiring O2 Exam/Review of Systems Vital Signs Vitals Vital Signs Date Time Temp Pulse Resp B/P Pulse Ox O2 Delivery O2 Flow Rate FiO2 10/02/16 14:00 113 100 Mechanical Ventilator 10/02/16 13:45 14 10/02/16 12:45 50 10/02/16 12:00 98.6 Intake and Output 10/01/16 10/01/16 10/02/16 15:00 23:00 07:00 Intake Total 137.50 ml Balance 137.50 ml Exam Constitutional: alert Respiratory: diminished breath sounds Cardiovascular: nl pulses Gastrointestinal: non-tender, soft Musculoskeletal: nl extremities to inspection Extremities: normal pulses Neurological: other Results Result Diagram: 10/02/16 0510/02/16 0520 Results 24 hrs Laboratory Tests Test 10/01/16 19:00 10/02/16 05:20 Lactic Acid Level < 0.5 L White Blood Count 4.9 Red Blood Count 3.07 L Hemoglobin 9.4 L Hematocrit 29.9 L Mean Corpuscular Volume 97.4 Mean Corpuscular Hemoglobin 30.6 Mean Corpuscular Hemoglobin Concent 31.4 L Red Cell Distribution Width 14.0 Platelet Count 154 Mean Platelet Volume 10.0 Neutrophils % 84.8 H Lymphocytes % 6.4 L Monocytes % 8.2 Eosinophils % 0.0 Basophils % 0.2 Nucleated Red Blood Cells % 0.0 Neutrophils # (Manual) 4.1 Lymphocytes # 0.3 L Monocytes # 0.4 Eosinophils # 0.0 Basophils # 0.0 Nucleated Red Blood Cells # 0.0 Sodium Level 145 H Potassium Level 4.8 Chloride Level 107 # Carbon Dioxide Level 25 Anion Gap 18 H Blood Urea Nitrogen 54 H Creatinine 2.38 H Glucose Level 88 Calcium Level 8.6 Medications Medications Current Medications Sodium Chloride (NS) 1,000 ml @ 100 mls/hr Q10H IV Last administered on 06:14; Admin Dose 100 MLS/HR; Start 10/01/16 at 18:30 Acetaminophen/ Hydrocodone Bitart ([place] (5/325)) 1 tab Q6 PO Last administered on 10/02/16 11:58; Admin Dose 1 TAB; Start 10/02/16 at 00:00 Acetaminophen 650 mg 650 mg Q4 PRN PO ELEVATED TEMPERATURE Last administered on 10/02/16 03:07; Admin Dose 650 MG; Start 10/02/16 at 02:30 Cefepime HCl 50 ml @ 100 mls/hr BID IVPB Last administered on 10/02/16 11:26 ; Admin Dose 100 MLS/HR; Start 10/02/16 at 09:00 Norepinephrine (Levophed) 250 ml @ 1.875 mls/ hr TITRATE IV Last administered on 10/02/16 06:10; Admin Dose 3.75 MLS/HR; Start 10/02/16 at 03:30 NAE VELAZCO Oct 02, 2016 16:10
--- NOTE | 2016-10-02 16:32 | CONS ---
Date/Time of Note Date/Time of Note DATE: 10/02/16 TIME: 16:15 Assessment/Plan Assessment/Plan Chief Complaint/Hosp Course ID PROGRESS NOTE CURRENT ABX: Cefepime #2 24H INTERVAL SUMMARY * Awake, alert -> s/p trach replacement by Dr. Plascencia for ruptured trach balloon * Temperature range this past week 99.7 - 100.6 == today down to 98.9 * MICRO:10/01 BCX (-) 24H; 10/01 Urine (+) URINE CULTURE Preliminary Organism 1 GRAM NEGATIVE ANGÉLICA COLONY COUNT >100,000 CFU/ml * LABS 10/02/16 0520 10/02/16 0520 EXAM GEN: 51 yo M paraplegia, VDRF, no fevers, HEENT: Unremarkable NECK: Supple-> New trach secure CVS: RRR, S1 and S2 CHEST: Coarse BS - vented ABD: Soft, NT, + BS EXT: No c/c/e NEURO: Para vs incomplete Quad, awake, responsive ID ASSESSMENT 41 yo M w/PMHx C-spine injury w/paraplegia 1990 admit with: 1. Sepsis on admission w/fevers, leukocytosis, hypotension due to GNR UTI * 10/01 BCX (-) 24H; * Fevers resolving * WBC normal w/resolving neutrophilia 2. Complicated GNR UTI 10/01 => Final micro pending 3. Neurogenic bladder 2/2 SCI w/retention 4. Acute renal failure 5. Chronic respiratory failure 2/2 SCI with trach/VDRF 6. Ruptured Trach Balloon ->s/p Trach Replacement 10/02/16 7. GERD 8. Seizure d/o 9. Psych Dx: BIpolar/Depression/Anxiety ( ) MRSA Nares -> ? Pending ? CURRENT ABX: Cefepime #2 ID RECOMMENDATIONS 1. Continue Cefepime 2. Await final ID GNR UTI pending . Problems: Consultation Date/Type/Reason Admit Date/Time Oct 01, 2016 at 13:37 Initial Consult Date 10/01/16 Type of Consultation: ID Referring Provider: JOSÉ ANTONIO MIRZA MD Exam/Review of Systems Vital Signs Vitals Vital Signs Date Time Temp Pulse Resp B/P Pulse Ox O2 Delivery O2 Flow Rate FiO2 10/02/16 14:00 113 100 Mechanical Ventilator 10/02/16 13:45 14 10/02/16 12:45 50 10/02/16 12:00 98.6 Intake and Output 10/01/16 10/01/16 10/02/16 15:00 23:00 07:00 Intake Total 137.50 ml Balance 137.50 ml Results Result Diagram: 10/02/16 0520 10/02/16 0520 Results 24 hrs Laboratory Tests Test 10/01/16 19:00 10/02/16 05:20 Lactic Acid Level < 0.5 L White Blood Count 4.9 Red Blood Count 3.07 L Hemoglobin 9.4 L Hematocrit 29.9 L Mean Corpuscular Volume 97.4 Mean Corpuscular Hemoglobin 30.6 Mean Corpuscular Hemoglobin Concent 31.4 L Red Cell Distribution Width 14.0 Platelet Count 154 Mean Platelet Volume 10.0 Neutrophils % 84.8 H Lymphocytes % 6.4 L Monocytes % 8.2 Eosinophils % 0.0 Basophils % 0.2 Nucleated Red Blood Cells % 0.0 Neutrophils # (Manual) 4.1 Lymphocytes # 0.3 L Monocytes # 0.4 Eosinophils # 0.0 Basophils # 0.0 Nucleated Red Blood Cells # 0.0 Sodium Level 145 H Potassium Level 4.8 Chloride Level 107 # Carbon Dioxide Level 25 Anion Gap 18 H Blood Urea Nitrogen 54 H Creatinine 2.38 H Glucose Level 88 Calcium Level 8.6 Medications Medications Current Medications Sodium Chloride (NS) 1,000 ml @ 100 mls/hr Q10H IV Last administered on 15:59; Admin Dose 100 MLS/HR; Start 10/01/16 at 18:30 Acetaminophen/ Hydrocodone Bitart ([place] (5/325)) 1 tab Q6 PO Last administered on 10/02/16 11:58; Admin Dose 1 TAB; Start 10/02/16 at 00:00 Acetaminophen 650 mg 650 mg Q4 PRN PO ELEVATED TEMPERATURE Last administered on 10/02/16 03:07; Admin Dose 650 MG; Start 10/02/16 at 02:30 Cefepime HCl 50 ml @ 100 mls/hr BID IVPB Last administered on 10/02/16 11:26 ; Admin Dose 100 MLS/HR; Start 10/02/16 at 09:00 Norepinephrine/ Dextrose (Levophed/D5W) 500 ml @ 0 mls/hr TITRATE IV ; Start at 16:30 KELSI CERDA NP Oct 02, 2016 16:29
--- NOTE | 2016-10-02 17:42 | RADRPT ---
PROCEDURE: XR Chest. CLINICAL INDICATION: Check PICC line position. TECHNIQUE: Single frontal view. COMPARISON: 10/01/2016. FINDINGS: There is a left arm PICC line with the tip in the lower superior vena cava. The tracheostomy tube r emains in satisfactory position. There is bilateral interstitial disease and left basilar atelectas is, unchanged. The lungs are otherwise clear. The heart size is normal. There is no pleural effusion. There is no pneumothorax. IMPRESSION: 1. Left arm PICC line tip in satisfactory position. 2. Tracheostomy tube. 3. Unchanged appearance of the lungs. RPTAT: QQ .Cain Castellanos MD, MD Date Time Electronically viewed and signed by .Cain Castellanos MD, on 10/02/2016 17:42 .R/
[2016-10-03] VITALS (93 sets, daily range): BP systolic 80–151; BP diastolic 57–103; PULSE 45–146; RESP 16–27
[2016-10-03] MEDS: SOD CHLORIDE 0.9% 1,000 ML IV SCH ×2 (04:08→09:48)
[2016-10-03] MEDS: HYDROCODONE/APAP (5/325) TAB PO SCH ×4 (05:12→23:10)
[2016-10-03 05:34] LABS: ABNORMAL IP MESSAGE 1; BASOPHILS % 0.1 % (0.0-2.0); HEMATOCRIT 34.8 % (42.0-52.0); HEMOGLOBIN 10.6 g/dl (14.0-18.0); LYMPHOCYTES # 0.6 10^3/ul (0.8-2.9); LYMPHOCYTES % 7.4 % (15.0-51.0); MEAN CORPUSCULAR HEMOGLOBIN 29.8 pg (29.0-33.0); MEAN CORPUSCULAR HGB CONC 30.5 g/dl (32.0-37.0); MEAN CORPUSCULAR VOLUME 97.8 fl (82.0-101.0); MEAN PLATELET VOLUME 9.7 fl (7.4-10.4); MONOCYTE # 0.6 10^3/ul (0.3-0.9); MONOCYTES % 8.1 % (0.0-11.0); NEUTROPHILS % 83.9 % (39.0-77.0); PLATELET COUNT 211 10^3/UL (140-415); POSITIVE DIFF @See below; RED BLOOD COUNT 3.56 10^6/ul (4.70-6.10); WHITE BLOOD COUNT 7.4 10^3/ul (4.8-10.8)
[2016-10-03 05:44] LABS: AADO2 Arterial 288.3 mmHg (7.0-24.0); Allen Test ACCEPTAB; Arterial Base Excess -7.6 mmol/L (-3.0-3); Arterial COHb 0.3 % (0.0-3.0); Arterial Fraction of Oxyhgb 97.2 % (93.0-99.0); Arterial HCO3 17.7 mmol/L (22.0-26.0); Arterial MetHb 0.3 % (0.0-1.5); Arterial Total Hemglobin 13.1 g/dl (12.0-18.0); MODE VENT - AC
[2016-10-03 05:48] LABS: CALCIUM 8.8 mg/dl (8.4-10.2); CREATININE 1.91 mg/dl (0.61-1.24); POTASSIUM 4.7 mmol/L (3.5-5.1)
[2016-10-03 07:13] LABS: PROTEIN/CREAT RATIO 4.69 RATIO
--- NOTE | 2016-10-03 07:26 | RADRPT ---
PROCEDURE: XR Chest. CLINICAL INDICATION: Ventilator TECHNIQUE: AP Portable chest. COMPARISON: 10/02/2016 FINDINGS: Tracheostomy tube is midline. The left PICC line remains in place. The cardiomediastinal silhouette is within normal limits. Bilateral reticular densities and left ba silar atelectasis are again visualized. No pneumothorax is seen. Probable trace pleural effusions. There is dextroscoliosis. IMPRESSION: Tracheostomy tube and left PICC line in place. Unchanged interstitial densities and left basilar atelectasis. Physician Iglesia Date Time Electronically viewed and signed by Physician Iglesia on 10/03/2016 07:25 CS/
--- NOTE | 2016-10-03 08:52 | RADRPT ---
PROCEDURE: US guidance for PICC line CLINICAL INDICATION: PICC line placement TECHNIQUE: Multiple real-time images were acquired of the patient's arm utilizing a high resolutio n transducer. This was performed by the PICC line nurse for venous access. COMPARISON: None FINDINGS: Ultrasound guidance for PICC line placement. IMPRESSION: Ultrasound guidance for PICC line placement. RPTAT: AA .Carlos Hinds MD, MD Date Time Electronically viewed and signed by .Carlos Hinds MD, on 10/03/2016 08:52 .S/
[2016-10-03] MEDS: CEFEPIME 1GM/50 ML (PMX) 50 ML IVPB SCH ×2 (09:48→21:01)
--- NOTE | 2016-10-03 10:30 | CONS ---
Date/Time of Note Date/Time of Note DATE: 10/03/16 TIME: 10:27 Assessment/Plan Assessment/Plan Additional Assessment/Plan Ventilator setting; AC of 16, tidal volume 600, PEEP of 5, 60% FiO2. Assessment and recommendations; 1. Patient with history of C-spine injury on ventilator chronically, admitted for UTI and sepsis. Urine culture growing Proteus. Patient currently on appropriate antibiotic regimen. 2. Stable seizure disorder. Continue current supportive care. Ventilator settings have been adjusted. Consultation Date/Type/Reason Admit Date/Time Oct 01, 2016 at 13:37 Initial Consult Date 10/01/16 Type of Consultation: Pulmonary/critical care Referring Provider: JOSÉ ANTONIO MIRZA MD 24 HR Interval Summary Free Text/Dictation Patient condition stable. Remains completely awake and alert. Able to move upper extremities to some extent. Has remained hemodynamically stable. General exam; young male, on ventilator via tracheostomy, awake and alert. Currently in no distress. Exam/Review of Systems Vital Signs Vitals Vital Signs Date Time Temp Pulse Resp B/P Pulse Ox O2 Delivery O2 Flow Rate FiO2 10/03/16 09:35 103 22 98 60 10/03/16 06:45 114/88 10/03/16 06:30 Mechanical Ventilator 10/03/16 03:45 99.0 Intake and Output 10/02/16 10/02/16 10/03/16 15:00 23:00 07:00 Intake Total 1000.00 ml 1018.75 ml 950.00 ml Output Total 470 ml 320 ml 890 ml Balance 530.00 ml 698.75 ml 60.00 ml Exam HEENT exam; supple neck, no JVD. No lymphadenopathy. Midline trachea. No thyromegaly. Patient has carious teeth. Pupils are midsize bilaterally. Tracheostomy in place. Insertion site is clean. Chest exam; clear to auscultation. S1-S2 audible, no murmurs. Regular rhythm. Abdomen exam; soft, scaphoid. G-tube in place. No organomegaly. Bowel sounds audible. Nontender. Extremities; no peripheral edema. ENT PHYSICIAN exam; patient is awake and alert follows simple commands. Able to move upper extremities to some extent. Has stable paraplegia. Results Result Diagram: 10/03/16 0400 10/03/16 0400 Results 24 hrs Laboratory Tests Test 10/03/16 04:00 10/03/16 04:50 10/03/16 05:00 White Blood Count 7.4 # Red Blood Count 3.56 L Hemoglobin 10.6 L Hematocrit 34.8 L Mean Corpuscular Volume 97.8 Mean Corpuscular Hemoglobin 29.8 Mean Corpuscular Hemoglobin Concent 30.5 L Red Cell Distribution Width 14.0 Platelet Count 211 # Mean Platelet Volume 9.7 Neutrophils % 83.9 H Lymphocytes % 7.4 L Monocytes % 8.1 Eosinophils % 0.0 Basophils % 0.1 Nucleated Red Blood Cells % 0.0 Neutrophils # (Manual) 6.2 Lymphocytes # 0.6 L Monocytes # 0.6 Eosinophils # 0.0 Basophils # 0.0 Nucleated Red Blood Cells # 0.0 Sodium Level 145 H Potassium Level 4.7 Chloride Level 110 Carbon Dioxide Level 18 L Anion Gap 22 H Blood Urea Nitrogen 47 H Creatinine 1.91 H Glucose Level 82 Calcium Level 8.8 Lactic Acid Level 0.8 Urine Eosinophils % 0.0 Urine Random Creatinine 35.17 Urine Random Sodium 100 H Urine Protein/Creatinine Ratio 4.69 Urine Total Protein 165.0 H Blood Gas Specimen Source Blood arterial Arterial Blood Date Drawn 10/03/2016 5:30:43 AM Arterial Blood pH (Temp corrected) 7.313 L Arterial Blood pCO2 (Temp correct) 35.8 Arterial Blood pO2 (Temp corrected) 100.1 H Arterial Blood HCO3 17.7 L Arterial Blood Base Excess -7.6 L Arterial Blood Oxygen Saturation 97.8 Julito Test ACCEPTAB Arterial Blood Gas Puncture Site Right Radial Arterial Blood Carboxyhemoglobin 0.3 Arterial Blood Methemoglobin 0.3 Blood Gas A-a O2 Differential 288.3 H Oxyhemoglobin Percent 97.2 Total Hemoglobin 13.1 Blood Gas Temperature 37.0 Blood Gas Respiration Rate 16.0 Blood Gas Actual Respiration Rate 21 Blood Gas Modality VENT - AC FiO2 60.0 Blood Gas Tidal Volume 600.0 Blood Gas Low PEEP Setting 5.0 Blood Gas Notified Whom MA Blood Gas Notified Time 10/03/2016 5:44:33 AM Medications Medications Current Medications Sodium Chloride (NS) 1,000 ml @ 100 mls/hr Q10H IV Last administered on t 04:08; Admin Dose 100 MLS/HR; Start 10/01/16 at 18:30 Acetaminophen/ Hydrocodone Bitart ([place] (5/325)) 1 tab Q6 PO Last administered on 10/03/16 05:12; Admin Dose 1 TAB; Start 10/02/16 at 00:00 Acetaminophen 650 mg 650 mg Q4 PRN PO ELEVATED TEMPERATURE Last administered on 10/02/16 03:07; Admin Dose 650 MG; Start 10/02/16 at 02:30 Cefepime HCl 50 ml @ 100 mls/hr BID IVPB Last administered on 10/03/16 09:48 ; Admin Dose 100 MLS/HR; Start 10/02/16 at 09:00 Norepinephrine/ Dextrose (Levophed/D5W) 500 ml @ 0 mls/hr TITRATE IV Last administered on 10/03/16 04:26; Admin Dose 18.75 MLS/HR; Start 10/02/16 at 16: 30 TEX RIVER Oct 03, 2016 10:30
--- NOTE | 2016-10-03 13:05 | PN ---
Date/Time of Note Date/Time of Note DATE: 10/03/16 TIME: 12:55 Assessment/Plan VTE Prophylaxis VTE Prophylaxis Intervention: SCD's Lines/Catheters [facility]from [facility] PICC Line Central line still needed: Yes Urinary Cath still in place: No (suprapubic catheter) Assessment/Plan Chief Complaint/Hosp Course Patient continues on norepinephrine for hemodynamic support, awake alert denies fever. Problems: Assessment/Plan - Sepsis due to urinary tract infection. Dr. Maciel is following an infection disease consultation. Continue antibiotics per ID. continue ICU care. - UTI - Neurogenic bladder with suprapubic catheter. - Acute kidney injury on top of chronic kidney disease. - Ventilator-dependent respiratory failure with tracheostomy. - Dysphagia with percutaneous endoscopic gastrostomy tube. - Multiple decubitus ulcers present on admission. - Cervical spine injury with paraplegia. - Bipolar disorder with psychosis. Further recommendations based on clinical course. Plan of care discussed with Dr. Barreto. Exam/Review of Systems Vital Signs Vitals Vital Signs Date Time Temp Pulse Resp B/P Pulse Ox O2 Delivery O2 Flow Rate FiO2 10/03/16 12:00 107 10/03/16 11:50 23 98 40 10/03/16 06:45 114/88 10/03/16 06:30 Mechanical Ventilator 10/03/16 03:45 99.0 Intake and Output 10/02/16 10/02/16 10/03/16 15:00 23:00 07:00 Intake Total 1000.00 ml 1018.75 ml 950.00 ml Output Total 470 ml 320 ml 890 ml Balance 530.00 ml 698.75 ml 60.00 ml Exam Constitutional: alert, oriented Head: normocephalic ENMT: other (Ileostomy) Respiratory: normal air movement Cardiovascular: nl pulses, regular rate and rhythm Gastrointestinal: non-tender, other (G-tube), soft Musculoskeletal: muscle weakness, other (Bilateral lower extremities contracted ) Results Result Diagram: 10/03/16 0400 10/03/16 0400 Results 24 hrs Laboratory Tests Test 10/03/16 04:00 10/03/16 04:50 10/03/16 05:00 White Blood Count 7.4 # Red Blood Count 3.56 L Hemoglobin 10.6 L Hematocrit 34.8 L Mean Corpuscular Volume 97.8 Mean Corpuscular Hemoglobin 29.8 Mean Corpuscular Hemoglobin Concent 30.5 L Red Cell Distribution Width 14.0 Platelet Count 211 # Mean Platelet Volume 9.7 Neutrophils % 83.9 H Lymphocytes % 7.4 L Monocytes % 8.1 Eosinophils % 0.0 Basophils % 0.1 Nucleated Red Blood Cells % 0.0 Neutrophils # (Manual) 6.2 Lymphocytes # 0.6 L Monocytes # 0.6 Eosinophils # 0.0 Basophils # 0.0 Nucleated Red Blood Cells # 0.0 Sodium Level 145 H Potassium Level 4.7 Chloride Level 110 Carbon Dioxide Level 18 L Anion Gap 22 H Blood Urea Nitrogen 47 H Creatinine 1.91 H Glucose Level 82 Calcium Level 8.8 Lactic Acid Level 0.8 Urine Eosinophils % 0.0 Urine Random Creatinine 35.17 Urine Random Sodium 100 H Urine Protein/Creatinine Ratio 4.69 Urine Total Protein 165.0 H Blood Gas Specimen Source Blood arterial Arterial Blood Date Drawn 10/03/2016 5:30:43 AM Arterial Blood pH (Temp corrected) 7.313 L Arterial Blood pCO2 (Temp correct) 35.8 Arterial Blood pO2 (Temp corrected) 100.1 H Arterial Blood HCO3 17.7 L Arterial Blood Base Excess -7.6 L Arterial Blood Oxygen Saturation 97.8 Julito Test ACCEPTAB Arterial Blood Gas Puncture Site Right Radial Arterial Blood Carboxyhemoglobin 0.3 Arterial Blood Methemoglobin 0.3 Blood Gas A-a O2 Differential 288.3 H Oxyhemoglobin Percent 97.2 Total Hemoglobin 13.1 Blood Gas Temperature 37.0 Blood Gas Respiration Rate 16.0 Blood Gas Actual Respiration Rate 21 Blood Gas Modality VENT - AC FiO2 60.0 Blood Gas Tidal Volume 600.0 Blood Gas Low PEEP Setting 5.0 Blood Gas Notified Whom MA Blood Gas Notified Time 10/03/2016 5:44:33 AM Medications Medications Current Medications Sodium Chloride (NS) 1,000 ml @ 100 mls/hr Q10H IV Last administered on 04:08; Admin Dose 100 MLS/HR; Start 10/01/16 at 18:30 Acetaminophen/ Hydrocodone Bitart ([place] (5/325)) 1 tab Q6 PO Last administered on 10/03/16 11:11; Admin Dose 1 TAB; Start 10/02/16 at 00:00 Acetaminophen 650 mg 650 mg Q4 PRN PO ELEVATED TEMPERATURE Last administered on 10/02/16 03:07; Admin Dose 650 MG; Start 10/02/16 at 02:30 Cefepime HCl 50 ml @ 100 mls/hr BID IVPB Last administered on 10/03/16 09:48 ; Admin Dose 100 MLS/HR; Start 10/02/16 at 09:00 Norepinephrine/ Dextrose (Levophed/D5W) 500 ml @ 0 mls/hr TITRATE IV Last administered on 10/03/16 04:26; Admin Dose 18.75 MLS/HR; Start 10/02/16 at 16: 30 AISSATOU DUNCAN Oct 03, 2016 13:05
[2016-10-03] MEDS ORDERED: SOD CHLORIDE 0.45% 1,000 ML IV SCH (13:30)
[2016-10-03] MEDS ORDERED: ACETAMINOPHEN 500 MG TAB PO PRN (13:30)
--- NOTE | 2016-10-03 17:43 | CONS ---
Date/Time of Note Date/Time of Note DATE: 10/03/16 TIME: 17:43 Assessment/Plan Assessment/Plan Additional Assessment/Plan 1. Acute kidney injury secondary to severe prerenal azotemia and possible acute tubular necrosis from sepsis 2. Acute uremia with a BUN of 60, Cr 2.65.- slowly improving with D5W 3. Urinary tract infection with urinalysis positive for nitrites. on IV abx 5. 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 6. History of neurogenic bladder with urinary retention, status post suprapubic catheter. 7. History of previous recurrent urinary tract infections. 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 9. 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 10. Other medical history includes anxiety, depression, bipolar disorder, psychosis. 11. History of right nephrectomy with left renal nephrolithiasis and a left renal cyst measuring 5.3 cm in size. PLAN: BUN/Cr slowly improving continue NS at 100 cc/hr pt only has left kidney in place, with stone in in left kidney and left renal cyst 5.3cm, in size no evidence of hematuria Preserved EF on echocardiogram March 02, 2016 IV abx for sepsis, levophed prn BP support will follow up Consultation Date/Type/Reason Admit Date/Time Oct 01, 2016 at 13:37 Initial Consult Date 10/01/16 Type of Consultation: NEPHROLOGY Referring Provider: JOSÉ ANTONIO MIRZA MD Exam/Review of Systems Vital Signs Vitals Vital Signs Date Time Temp Pulse Resp B/P Pulse Ox O2 Delivery O2 Flow Rate FiO2 10/03/16 16:00 57 10/03/16 15:50 23 98 40 10/03/16 06:45 114/88 10/03/16 06:30 Mechanical Ventilator 10/03/16 03:45 99.0 Intake and Output 10/02/16 10/02/16 10/03/16 14:59 22:59 06:59 Intake Total 1000.00 ml 1018.75 ml 1068.75 ml Output Total 470 ml 320 ml 890 ml Balance 530.00 ml 698.75 ml 178.75 ml Results Result Diagram: 10/03/16 0400 10/03/16 0400 Results 24 hrs Laboratory Tests Test 10/03/16 04:00 10/03/16 04:50 10/03/16 05:00 White Blood Count 7.4 # Red Blood Count 3.56 L Hemoglobin 10.6 L Hematocrit 34.8 L Mean Corpuscular Volume 97.8 Mean Corpuscular Hemoglobin 29.8 Mean Corpuscular Hemoglobin Concent 30.5 L Red Cell Distribution Width 14.0 Platelet Count 211 # Mean Platelet Volume 9.7 Neutrophils % 83.9 H Lymphocytes % 7.4 L Monocytes % 8.1 Eosinophils % 0.0 Basophils % 0.1 Nucleated Red Blood Cells % 0.0 Neutrophils # (Manual) 6.2 Lymphocytes # 0.6 L Monocytes # 0.6 Eosinophils # 0.0 Basophils # 0.0 Nucleated Red Blood Cells # 0.0 Sodium Level 145 H Potassium Level 4.7 Chloride Level 110 Carbon Dioxide Level 18 L Anion Gap 22 H Blood Urea Nitrogen 47 H Creatinine 1.91 H Glucose Level 82 Calcium Level 8.8 Lactic Acid Level 0.8 Urine Eosinophils % 0.0 Urine Random Creatinine 35.17 Urine Random Sodium 100 H Urine Protein/Creatinine Ratio 4.69 Urine Total Protein 165.0 H Blood Gas Specimen Source Blood arterial Arterial Blood Date Drawn 10/03/2016 5:30:43 AM Arterial Blood pH (Temp corrected) 7.313 L Arterial Blood pCO2 (Temp correct) 35.8 Arterial Blood pO2 (Temp corrected) 100.1 H Arterial Blood HCO3 17.7 L Arterial Blood Base Excess -7.6 L Arterial Blood Oxygen Saturation 97.8 Julito Test ACCEPTAB Arterial Blood Gas Puncture Site Right Radial Arterial Blood Carboxyhemoglobin 0.3 Arterial Blood Methemoglobin 0.3 Blood Gas A-a O2 Differential 288.3 H Oxyhemoglobin Percent 97.2 Total Hemoglobin 13.1 Blood Gas Temperature 37.0 Blood Gas Respiration Rate 16.0 Blood Gas Actual Respiration Rate 21 Blood Gas Modality VENT - AC FiO2 60.0 Blood Gas Tidal Volume 600.0 Blood Gas Low PEEP Setting 5.0 Blood Gas Notified Whom MA Blood Gas Notified Time 10/03/2016 5:44:33 AM Medications Medications Current Medications Acetaminophen/ Hydrocodone Bitart ([place] (5/325)) 1 tab Q6 PO Last administered on 10/03/16 17:24; Admin Dose 1 TAB; Start 10/02/16 at 00:00 Acetaminophen 650 mg 650 mg Q4 PRN PO ELEVATED TEMPERATURE Last administered on 10/02/16 03:07; Admin Dose 650 MG; Start 10/02/16 at 02:30 Cefepime HCl 50 ml @ 100 mls/hr BID IVPB Last administered on 10/03/16 09:48 ; Admin Dose 100 MLS/HR; Start 10/02/16 at 09:00 Norepinephrine/ Dextrose (Levophed/D5W) 500 ml @ 0 mls/hr TITRATE IV Last administered on 10/03/16 04:26; Admin Dose 18.75 MLS/HR; Start 10/02/16 at 16: 30 Acetaminophen (Tylenol Tab) 1,000 mg Q4 PRN PO MODERATE PAIN LEVEL 4-6; Start 10/03/16 at 13:30 Chlorhexidine Gluconate (Peridex) 15 ml Q12 MM ; Start 10/03/16 at 21:00 Docusate Sodium (Colace) 200 mg QHS PO ; Start 10/03/16 at 21:00 Pantoprazole (Protonix Tab) 40 mg DAILY PO ; Start 10/04/16 at 09:00 Risperidone 1 mg 1 mg QHS GTB ; Start 10/03/16 at 21:00 Sodium Chloride (1/2 NS) 1,000 ml @ 50 mls/hr Q20H IV Last administered on 14:01; Admin Dose 50 MLS/HR; Start 10/03/16 at 13:30 TIARA CISNEROS MD Oct 03, 2016 17:43
--- NOTE | 2016-10-03 20:21 | PN ---
DATE: 10/03/2016 SUBJECTIVE DATA: No acute events overnight. The patient is alert, denies pain, looks comfortable. No fevers. He is on Levophed drip. Temperature 99, pulse 111, respirations 23, blood pressure 114/88, saturation 100 on vent. LABORATORY AND DIAGNOSTIC DATA: WBC 7.4, H and H 10.6 and 34.8, platelets 211, neutrophils 83.9. BUN 47, creatinine 1.91. MICROBIOLOGY: Urine culture growing Proteus mirabilis, susceptible to amikacin, cefotaxime and Levaquin. Indwellings: Patient has trach, PEG, suprapubic catheter and a PICC line placed on October 02. Antimicrobials: The patient is on cefepime. OBJECTIVE DATA: GENERAL: This is a chronically ill-appearing, middle-aged white man, who is awake, in no distress. HEENT: Head atraumatic, normocephalic. Sclerae anicteric. Buccal mucosa dry. NECK: Neck is supple. Tracheostomy present. LUNGS: Chest rises symmetrical. Breath sounds diminished at the bases. HEART: S1, S2. ABDOMEN: Soft. Bowel sounds present. EXTREMITIES: Extremities without cyanosis. ASSESSMENT AND PLAN: 1. Septic shock. 2. Recurrent multidrug resistant urinary tract infection. 3. Paraplegia. 4. Neurogenic bladder. 5. Acute renal failure, improving. 6. Seizure disorder. 7. Anemia. PLAN: The patient remains stable on appropriate antimicrobials. He is being followed by multiple consultants. Continue present care. Dictated By: Celso Mancilla NP /sera/maida /Document#: [id number]
[2016-10-03] MEDS ORDERED: RISPERIDONE 1 MG TAB GTB SCH (21:00)
[2016-10-03] MEDS: CHLORHEXIDINE GLUCONATE 15 ML UD CUP MM SCH (21:01)
[2016-10-03] MEDS: DOCUSATE SODIUM 100 MG CAP PO SCH (21:01)
[2016-10-03] MEDS: RISPERIDONE 1 MG TAB GTB SCH (22:21)
[2016-10-04] VITALS (33 sets, daily range): BP systolic 98–121; BP diastolic 68–91; PULSE 66–100; RESP 17–28
[2016-10-04] MEDS: HYDROCODONE/APAP (5/325) TAB PO SCH ×4 (05:42→23:42)
[2016-10-04 06:17] LABS: BASOPHILS % 0.2 % (0.0-2.0); EOSINOPHILS # 0.1 10^3/ul (0.0-0.5); EOSINOPHILS % 1.4 % (0.0-7.0); HEMATOCRIT 31.4 % (42.0-52.0); HEMOGLOBIN 9.8 g/dl (14.0-18.0); LYMPHOCYTES # 0.7 10^3/ul (0.8-2.9); LYMPHOCYTES % 11.3 % (15.0-51.0); MEAN CORPUSCULAR HEMOGLOBIN 30.2 pg (29.0-33.0); MEAN CORPUSCULAR HGB CONC 31.2 g/dl (32.0-37.0); MEAN CORPUSCULAR VOLUME 96.9 fl (82.0-101.0); MEAN PLATELET VOLUME 9.7 fl (7.4-10.4); MONOCYTE # 0.4 10^3/ul (0.3-0.9); MONOCYTES % 7.5 % (0.0-11.0); NEUTROPHILS % 78.9 % (39.0-77.0); PLATELET COUNT 167 10^3/UL (140-415); RED BLOOD COUNT 3.24 10^6/ul (4.70-6.10); RED CELL DISTRIBUTION WIDTH 14.4 % (11.5-14.5); WHITE BLOOD COUNT 5.9 10^3/ul (4.8-10.8)
[2016-10-04 06:54] LABS: CALCIUM 8.6 mg/dl (8.4-10.2); CREATININE 1.77 mg/dl (0.61-1.24); POTASSIUM 4.4 mmol/L (3.5-5.1)
--- NOTE | 2016-10-04 08:36 | CONS ---
Date/Time of Note Date/Time of Note DATE: 10/04/16 TIME: 08:33 Assessment/Plan Assessment/Plan Additional Assessment/Plan Ventilator setting; AC of 14, tidal volume 500, PEEP of 5, 40% FiO2. Assessment and recommendations; 1. P patient admitted with severe sepsis due to UTI from Proteus. Currently on appropriate antibiotic regimen. Next 2. Quadriplegia due to C-spine trauma, patient remains chronically ventilator dependent. 3. Anemia and mild thrombocytopenia. 4. Mild hyponatremia. 5. Acute renal injury with normalization of serum creatinine. Continue current supportive care. Patient responding well to current treatment regimen. Consultation Date/Type/Reason Admit Date/Time Oct 01, 2016 at 13:37 Initial Consult Date 10/01/16 Type of Consultation: Pulmonary/critical care Referring Provider: JOSÉ ANTONIO MIRZA MD 24 HR Interval Summary Free Text/Dictation Patient condition remains stable. Remains completely awake and alert. Has been off Levophed. General exam; young male, on ventilator via tracheostomy, awake and alert. He in no distress Exam/Review of Systems Vital Signs Vitals Vital Signs Date Time Temp Pulse Resp B/P Pulse Ox O2 Delivery O2 Flow Rate FiO2 10/04/16 06:00 100 18 107/68 94 10/04/16 05:47 40 10/04/16 04:00 Mechanical Ventilator 10/04/16 00:00 97.6 Intake and Output 10/03/16 10/03/16 10/04/16 15:00 23:00 07:00 Intake Total 40 ml 440 ml 590 ml Output Total 480 ml 400 ml 940 ml Balance -440 ml 40 ml -350 ml Exam HEENT exam; supple neck, no JVD. No lymphadenopathy. Midline trachea. No thyromegaly. Patient has fair dentition. Tracheostomy placed with clean insertion site. He was are midsize and reactive to light bilaterally. Chest exam; clear to auscultation. S1-S2 audible, no murmurs. Regular rhythm. Abdomen exam; soft, no organomegaly. Bowel sounds audible. Nontender. Extremity exam; no peripheral edema. 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 Results Result Diagram: 10/04/1651910/04/16519 Results 24 hrs Laboratory Tests Test 10/04/16 05:20 White Blood Count 5.9 # Red Blood Count 3.24 L Hemoglobin 9.8 L Hematocrit 31.4 L Mean Corpuscular Volume 96.9 Mean Corpuscular Hemoglobin 30.2 Mean Corpuscular Hemoglobin Concent 31.2 L Red Cell Distribution Width 14.4 Platelet Count 167 # Mean Platelet Volume 9.7 Neutrophils % 78.9 H Lymphocytes % 11.3 L Monocytes % 7.5 Eosinophils % 1.4 Basophils % 0.2 Nucleated Red Blood Cells % 0.0 Neutrophils # (Manual) 4.6 Lymphocytes # 0.7 L Monocytes # 0.4 Eosinophils # 0.1 Basophils # 0.0 Nucleated Red Blood Cells # 0.0 Sodium Level 149 H Potassium Level 4.4 Chloride Level 113 H Carbon Dioxide Level 21 Anion Gap 19 H Blood Urea Nitrogen 39 H Creatinine 1.77 H Glucose Level 98 Calcium Level 8.6 Medications Medications Current Medications Acetaminophen/ Hydrocodone Bitart ([place] (5/325)) 1 tab Q6 PO Last administered on 10/04/16 05:42; Admin Dose 1 TAB; Start 10/02/16 at 00:00 Acetaminophen 650 mg 650 mg Q4 PRN PO ELEVATED TEMPERATURE Last administered on 10/02/16 03:07; Admin Dose 650 MG; Start 10/02/16 at 02:30 Cefepime HCl 50 ml @ 100 mls/hr BID IVPB Last administered on 10/03/16 21:01 ; Admin Dose 100 MLS/HR; Start 10/02/16 at 09:00 Norepinephrine/ Dextrose (Levophed/D5W) 500 ml @ 0 mls/hr TITRATE IV Last administered on 10/03/16 04:26; Admin Dose 18.75 MLS/HR; Start 10/02/16 at 16: 30 Acetaminophen (Tylenol Tab) 1,000 mg Q4 PRN PO MODERATE PAIN LEVEL 4-6; Start 10/03/16 at 13:30 Chlorhexidine Gluconate (Peridex) 15 ml Q12 MM Last administered on 10/03/16 21:01; Admin Dose 15 ML; Start 10/03/16 at 21:00 Docusate Sodium (Colace) 200 mg QHS PO Last administered on 10/03/16 21:01; Admin Dose 200 MG; Start 10/03/16 at 21:00 Pantoprazole 40 mg 40 mg DAILY PO ; Start 10/04/16 at 09:00 Sodium Chloride (1/2 NS) 1,000 ml @ 50 mls/hr Q20H IV Last administered on t 14:01; Admin Dose 50 MLS/HR; Start 10/03/16 at 13:30 Risperidone (Risperdal) 1 mg QHS GTB ; Start 10/03/16 at 22:21 TEX RIVER Oct 04, 2016 08:36
[2016-10-04] MEDS: PANTOPRAZOLE (EC) 40 MG TAB PO SCH (09:00)
--- NOTE | 2016-10-04 09:21 | CONS ---
Date/Time of Note Date/Time of Note DATE: 10/04/16 TIME: 09:19 Assessment/Plan Assessment/Plan Additional Assessment/Plan 1. Acute kidney injury secondary to severe prerenal azotemia and possible acute tubular necrosis from sepsis 2. Acute uremia with a BUN of 60, Cr 2.65.- slowly improving with D5W 3. Urinary tract infection with urinalysis positive for nitrites. on IV abx 5. 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 6. History of neurogenic bladder with urinary retention, status post suprapubic catheter. 7. History of previous recurrent urinary tract infections. 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 9. 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 10. Other medical history includes anxiety, depression, bipolar disorder, psychosis. 11. History of right nephrectomy with left renal nephrolithiasis and a left renal cyst measuring 5.3 cm in size. PLAN: BUN/Cr slowly improving, Na trending up, D/c 1/2 NS, start D5W + 10mEQ KCL at 80 cc.hr pt only has left kidney in place, with stone in in left kidney and left renal cyst 5.3cm, in size no evidence of hematuria Preserved EF on echocardiogram March 02, 2016 IV abx for sepsis, levophed prn BP support will follow up Consultation Date/Type/Reason Admit Date/Time Oct 01, 2016 at 13:37 Initial Consult Date 10/01/16 Type of Consultation: NEPHROLOGY Referring Provider: JOSÉ ANTONIO MIRZA MD 24 HR Interval Summary Free Text/Dictation Bun/Cr slowly improing. BP more stable Exam/Review of Systems Vital Signs Vitals Vital Signs Date Time Temp Pulse Resp B/P Pulse Ox O2 Delivery O2 Flow Rate FiO2 10/04/16 08:00 79 10/04/16 06:00 18 107/68 94 10/04/16 05:47 40 10/04/16 04:00 Mechanical Ventilator 10/04/16 00:00 97.6 Intake and Output 10/03/16 10/03/16 10/04/16 15:00 23:00 07:00 Intake Total 40 ml 440 ml 590 ml Output Total 480 ml 400 ml 940 ml Balance -440 ml 40 ml -350 ml Exam Constitutional: alert Respiratory: diminished breath sounds, Bilateral Coarse BS+, + tracheostomy Cardiovascular: nl pulses, regular rate and rhythm Gastrointestinal: soft, + G tube Musculoskeletal: nl extremities to inspection Extremities: normal pulses Results Result Diagram: 10/04/1620 10/04/16 0520 Results 24 hrs Laboratory Tests Test 10/04/16 05:20 White Blood Count 5.9 # Red Blood Count 3.24 L Hemoglobin 9.8 L Hematocrit 31.4 L Mean Corpuscular Volume 96.9 Mean Corpuscular Hemoglobin 30.2 Mean Corpuscular Hemoglobin Concent 31.2 L Red Cell Distribution Width 14.4 Platelet Count 167 # Mean Platelet Volume 9.7 Neutrophils % 78.9 H Lymphocytes % 11.3 L Monocytes % 7.5 Eosinophils % 1.4 Basophils % 0.2 Nucleated Red Blood Cells % 0.0 Neutrophils # (Manual) 4.6 Lymphocytes # 0.7 L Monocytes # 0.4 Eosinophils # 0.1 Basophils # 0.0 Nucleated Red Blood Cells # 0.0 Sodium Level 149 H Potassium Level 4.4 Chloride Level 113 H Carbon Dioxide Level 21 Anion Gap 19 H Blood Urea Nitrogen 39 H Creatinine 1.77 H Glucose Level 98 Calcium Level 8.6 Medications Medications Current Medications Acetaminophen/ Hydrocodone Bitart ([place] (5/325)) 1 tab Q6 PO Last administered on 10/04/16 05:42; Admin Dose 1 TAB; Start 10/02/16 at 00:00 Acetaminophen 650 mg 650 mg Q4 PRN PO ELEVATED TEMPERATURE Last administered on 10/02/16 03:07; Admin Dose 650 MG; Start 10/02/16 at 02:30 Cefepime HCl 50 ml @ 100 mls/hr BID IVPB Last administered on 10/03/16 21:01 ; Admin Dose 100 MLS/HR; Start 10/02/16 at 09:00 Norepinephrine/ Dextrose (Levophed/D5W) 500 ml @ 0 mls/hr TITRATE IV Last administered on 10/03/16 04:26; Admin Dose 18.75 MLS/HR; Start 10/02/16 at 16: 30 Acetaminophen (Tylenol Tab) 1,000 mg Q4 PRN PO MODERATE PAIN LEVEL 4-6; Start 10/03/16 at 13:30 Chlorhexidine Gluconate (Peridex) 15 ml Q12 MM Last administered on 10/03/16 21:01; Admin Dose 15 ML; Start 10/03/16 at 21:00 Docusate Sodium (Colace) 200 mg QHS PO Last administered on 10/03/16 21:01; Admin Dose 200 MG; Start 10/03/16 at 21:00 Pantoprazole 40 mg 40 mg DAILY PO ; Start 10/04/16 at 09:00 Sodium Chloride (1/2 NS) 1,000 ml @ 50 mls/hr Q20H IV Last administered on 14:01; Admin Dose 50 MLS/HR; Start 10/03/16 at 13:30 Risperidone (Risperdal) 1 mg QHS GTB ; Start 10/03/16 at 22:21 TIARA CISNEROS MD Oct 04, 2016 09:21
[2016-10-04] MEDS: CEFEPIME 1GM/50 ML (PMX) 50 ML IVPB SCH ×2 (09:45→22:11)
[2016-10-04] MEDS: CHLORHEXIDINE GLUCONATE 15 ML UD CUP MM SCH ×2 (09:45→22:11)
[2016-10-04] MEDS: DEXTROSE 5% IV SCH (11:21)
[2016-10-04] MEDS: POTASSIUM CHLORIDE IV SCH (11:21)
--- NOTE | 2016-10-04 12:10 | PN ---
Date/Time of Note Date/Time of Note DATE: 10/04/16 TIME: 12:00 Assessment/Plan VTE Prophylaxis VTE Prophylaxis Intervention: SCD's Lines/Catheters IV [facility] Type (from [facility]): PICC Line Central line still needed: Yes Assessment/Plan Chief Complaint/Hosp Course Patient weaned off pressors last night, remains hemodynamically stable, patient can be transferred to telemetry floor. Assessment/Plan - Sepsis due to urinary tract infection. Dr. Maciel is following in infection disease consultation. Continue antibiotics per ID. - Polymicrobial UTI, continue antibiotics per ID. - Neurogenic bladder with suprapubic catheter. - Hypernatremia, continue IV fluids with dextrose, monitor electrolytes. - Acute kidney injury on top of chronic kidney disease. Continue to monitor renal function. Dr. Barker is following in nephrology consultation. - Status post right nephrectomy - History of left renal nephrolithiasis and a left renal cyst - Ventilator-dependent respiratory failure with tracheostomy. - Dysphagia with percutaneous endoscopic gastrostomy tube. - Multiple decubitus ulcers present on admission. - Cervical spine injury with paraplegia. - Bipolar disorder with psychosis. Further recommendations based on clinical course. Plan of care discussed with Dr. Barreto. Problems: Exam/Review of Systems Vital Signs Vitals Vital Signs Date Time Temp Pulse Resp B/P Pulse Ox O2 Delivery O2 Flow Rate FiO2 10/04/16 11:00 89 17 117/88 94 Mechanical Ventilator 10/04/16 08:00 98.2 10/04/16 05:47 40 Intake and Output 10/03/16 10/03/16 10/04/16 15:00 23:00 07:00 Intake Total 40 ml 440 ml 590 ml Output Total 480 ml 400 ml 940 ml Balance -440 ml 40 ml -350 ml Exam Constitutional: alert, oriented Head: normocephalic ENMT: other (Ileostomy) Respiratory: normal air movement Cardiovascular: nl pulses, regular rate and rhythm Gastrointestinal: non-tender, other (G-tube), soft Musculoskeletal: muscle weakness, other (Bilateral lower extremities contracted ) Results Result Diagram: 10/04/1651910/04/16 05 Results 24 hrs Laboratory Tests Test 10/04/16 05:20 White Blood Count 5.9 # Red Blood Count 3.24 L Hemoglobin 9.8 L Hematocrit 31.4 L Mean Corpuscular Volume 96.9 Mean Corpuscular Hemoglobin 30.2 Mean Corpuscular Hemoglobin Concent 31.2 L Red Cell Distribution Width 14.4 Platelet Count 167 # Mean Platelet Volume 9.7 Neutrophils % 78.9 H Lymphocytes % 11.3 L Monocytes % 7.5 Eosinophils % 1.4 Basophils % 0.2 Nucleated Red Blood Cells % 0.0 Neutrophils # (Manual) 4.6 Lymphocytes # 0.7 L Monocytes # 0.4 Eosinophils # 0.1 Basophils # 0.0 Nucleated Red Blood Cells # 0.0 Sodium Level 149 H Potassium Level 4.4 Chloride Level 113 H Carbon Dioxide Level 21 Anion Gap 19 H Blood Urea Nitrogen 39 H Creatinine 1.77 H Glucose Level 98 Calcium Level 8.6 Medications Medications Current Medications Acetaminophen/ Hydrocodone Bitart ([place] (5/325)) 1 tab Q6 PO Last administered on 10/04/16 11:21; Admin Dose 1 TAB; Start 10/02/16 at 00:00 Acetaminophen 650 mg 650 mg Q4 PRN PO ELEVATED TEMPERATURE Last administered on 10/02/16 03:07; Admin Dose 650 MG; Start 10/02/16 at 02:30 Cefepime HCl 50 ml @ 100 mls/hr BID IVPB Last administered on 10/04/16 09:45 ; Admin Dose 100 MLS/HR; Start 10/02/16 at 09:00 Norepinephrine/ Dextrose (Levophed/D5W) 500 ml @ 0 mls/hr TITRATE IV Last administered on 10/03/16 04:26; Admin Dose 18.75 MLS/HR; Start 10/02/16 at 16: 30 Acetaminophen (Tylenol Tab) 1,000 mg Q4 PRN PO MODERATE PAIN LEVEL 4-6; Start 10/03/16 at 13:30 Chlorhexidine Gluconate (Peridex) 15 ml Q12 MM Last administered on 10/04/16 09:45; Admin Dose 15 ML; Start 10/03/16 at 21:00 Docusate Sodium (Colace) 200 mg QHS PO Last administered on 10/03/16 21:01; Admin Dose 200 MG; Start 10/03/16 at 21:00 Pantoprazole (Protonix Tab) 40 mg DAILY PO ; Start 10/04/16 at 09:00 Risperidone 1 mg 1 mg QHS GTB ; Start 10/03/16 at 22:21 Potassium Chloride/Dextrose (KCl/D5W) 1,000 ml @ 80 mls/hr [id number] IV Last administered on 10/04/16t 11:21; Admin Dose 80 MLS/HR; Start 10/04/16 at 11:00 AISSATOU DUNCAN Oct 04, 2016 12:10
--- NOTE | 2016-10-04 12:50 | PN ---
DATE: 10/04/2016 SUBJECTIVE DATA: No acute changes. The patient is alert, feels good, denies pain. Vital signs stable. Off Levophed. LABORATORY AND DIAGNOSTIC DATA: WBC 5.9, H and H 9.8 and 31.4, platelets 167; neutrophils 78.9. BUN 39, creatinine 1.77. Microbiology: Urine culture grew Proteus mirabilis, E coli, ESBL. Blood cultures remain negative. INDWELLINGS: Trach, PEG, suprapubic catheter, PICC line. ANTIMICROBIALS: The patient remains on cefepime. OBJECTIVE DATA: VITAL SIGNS: Temperature 98.2, pulse 79, respirations 22, blood pressure 112/75, saturation 97 percent on vent. GENERAL: Chronically ill, paraplegic, middle-aged man, who is alert, in no distress. HEENT: Head atraumatic, normocephalic. Sclerae anicteric. Buccal mucosa pink. NECK: Supple. Tracheostomy present. CHEST: Rise symmetrical. Breath sounds diminished at the bases. HEART: S1, S2. ABDOMEN: Soft, bowel sounds present. EXTREMITIES: Without cyanosis, wasted. and contractures lower extremities. ASSESSMENT: 1. Resolving sepsis status post shock. 2. Recurrent polymicrobial urinary tract infection. 3. Neurogenic bladder. 4. Paraplegia. 5. Acute renal failure. 6. Chronic respiratory failure. 7. Seizure disorder. PLAN: The patient remains stable, overall improving. Currently off pressors. He is on appropriate antimicrobials which we will continue. Dictated By: Celso Mancilla NP /sera/alana /Document#: [id number]
[2016-10-04] MEDS: DOCUSATE SODIUM 100 MG CAP PO SCH (21:00)
[2016-10-04] MEDS: RISPERIDONE 1 MG TAB GTB SCH (22:11)
[2016-10-05] VITALS (25 sets, daily range): BP systolic 114–147; BP diastolic 63–98; PULSE 73–90; RESP 16–31
[2016-10-05] MEDS: POTASSIUM CHLORIDE IV SCH ×2 (01:37→11:46)
[2016-10-05] MEDS: DEXTROSE 5% IV SCH ×2 (01:37→11:46)
[2016-10-05] MEDS: HYDROCODONE/APAP (5/325) TAB PO SCH ×3 (05:39→17:38)
[2016-10-05] MEDS: CHLORHEXIDINE GLUCONATE 15 ML UD CUP MM SCH ×2 (09:10→20:47)
[2016-10-05] MEDS: CEFEPIME 1GM/50 ML (PMX) 50 ML IVPB SCH ×2 (09:10→20:47)
[2016-10-05] MEDS: PANTOPRAZOLE (EC) 40 MG TAB PO SCH (10:01)
--- NOTE | 2016-10-05 14:06 | CONS ---
Date/Time of Note Date/Time of Note DATE: 10/05/16 TIME: 14:04 Assessment/Plan Assessment/Plan Additional Assessment/Plan Ventilator setting; AC of 14, tidal volume 500, PEEP of 5, 40% FiO2. Assessment and recommendations; 1. Patient admitted with sepsis due to UTI with significant clinical improvement. 2. Chronic respiratory failure due to C-spine injury. 3. Anemia and thrombocytopenia. 4. Acute renal injury, with improving serum creatinine. Continue current treatment. Consultation Date/Type/Reason Admit Date/Time Oct 01, 2016 at 13:37 Initial Consult Date 10/01/16 Type of Consultation: Pulmonary Referring Provider: JOSÉ ANTONIO MIRZA MD 24 HR Interval Summary Free Text/Dictation Patient condition is stable. Has been transferred out of ICU to telemetry unit. Remains awake and alert. General exam; young male, on ventilator via tracheostomy. Currently in no distress. Awake and alert. Exam/Review of Systems Vital Signs Vitals Vital Signs Date Time Temp Pulse Resp B/P Pulse Ox O2 Delivery O2 Flow Rate FiO2 10/05/16 13:20 74 24 98 42 10/05/16 11:40 98.0 114/78 10/04/16 18:00 Mechanical Ventilator Intake and Output 10/04/16 10/04/16 10/05/16 15:00 23:00 07:00 Intake Total 570 ml 330 ml 1695 ml Output Total 640 ml 240 ml 1300 ml Balance -70 ml 90 ml 395 ml Exam HEENT exam; supple neck, no JVD. No lymphadenopathy. Midline trachea. No thyromegaly. Tracheostomy in place. Chest exam; clear to auscultation. S1-S2 audible, no murmurs. Regular rhythm. Abdomen exam; soft, no organomegaly. Bowel sounds audible. Nontender. Extremity exam; no peripheral edema. 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 Has stable paraplegia. Results Result Diagram: 10/04/1651910/04/16519 Medications Medications Current Medications Acetaminophen/ Hydrocodone Bitart ([place] (5/325)) 1 tab Q6 PO Last administered on 10/05/16 11:55; Admin Dose 1 TAB; Start 10/02/16 at 00:00 Acetaminophen 650 mg 650 mg Q4 PRN PO ELEVATED TEMPERATURE Last administered on 10/02/16 03:07; Admin Dose 650 MG; Start 10/02/16 at 02:30 Cefepime HCl (Maxipime 1gm/50 ml (Pmx)) 50 ml @ 100 mls/hr BID IVPB Last administered on 10/05/16 09:10; Admin Dose 100 MLS/HR; Start 10/02/16 at 09:00 Acetaminophen (Tylenol Tab) 1,000 mg Q4 PRN PO MODERATE PAIN LEVEL 4-6; Start 10/03/16 at 13:30 Chlorhexidine Gluconate (Peridex) 15 ml Q12 MM Last administered on 10/05/16 09:10; Admin Dose 15 ML; Start 10/03/16 at 21:00 Docusate Sodium (Colace) 200 mg QHS PO Last administered on 10/03/16 21:01; Admin Dose 200 MG; Start 10/03/16 at 21:00 Pantoprazole (Protonix Tab) 40 mg DAILY PO Last administered on 10/05/16 10:01 ; Admin Dose 40 MG; Start 10/04/16 at 09:00 Risperidone 1 mg 1 mg QHS GTB Last administered on 10/04/16 22:11; Admin Dose 1 MG; Start 10/03/16 at 22:21 Potassium Chloride/Dextrose (KCl/D5W) 1,000 ml @ 80 mls/hr [id number] IV Last administered on 10/05/16 01:37; Admin Dose 80 MLS/HR; Start 10/04/16 at 11:00 [place] Oct 05, 2016 14:06
--- NOTE | 2016-10-05 14:15 | CONS ---
Date/Time of Note Date/Time of Note DATE: 10/05/16 TIME: 14:13 Assessment/Plan Assessment/Plan Chief Complaint/Hosp Course Transferred to [facility], alert, feels good, no fevers Microbiology: Urine culture grew Proteus mirabilis, E coli, ESBL. Blood cultures remain negative. INDWELLINGS: Trach, PEG, suprapubic catheter, PICC line. ANTIMICROBIALS: Cefepime. OBJECTIVE DATA: GENERAL: Chronically ill, paraplegic, middle-aged man, who is alert, in no distress. HEENT: Head atraumatic, normocephalic. Sclerae anicteric. Buccal mucosa pink. NECK: Supple. Tracheostomy present. CHEST: Rise symmetrical. Breath sounds diminished at the bases. HEART: S1, S2. ABDOMEN: Soft, bowel sounds present. EXTREMITIES: Without cyanosis, wasted. and contractures lower extremities. ASSESSMENT: 1. Resolving sepsis status post shock. 2. Recurrent polymicrobial urinary tract infection. 3. Neurogenic bladder. 4. Paraplegia. 5. Acute renal failure. 6. Chronic respiratory failure. 7. Seizure disorder. PLAN: Continues to improve, continue present care, abx [facility] staff Problems: Consultation Date/Type/Reason Admit Date/Time Oct 01, 2016 at 13:37 Initial Consult Date 10/01/16 Type of Consultation: id Referring Provider: JOSÉ ANTONIO MIRZA MD Exam/Review of Systems Vital Signs Vitals Vital Signs Date Time Temp Pulse Resp B/P Pulse Ox O2 Delivery O2 Flow Rate FiO2 10/05/16 13:20 74 24 98 42 10/05/16 11:40 98.0 114/78 10/04/16 18:00 Mechanical Ventilator Intake and Output 10/04/16 10/04/16 10/05/16 15:00 23:00 07:00 Intake Total 570 ml 330 ml 1695 ml Output Total 640 ml 240 ml 1300 ml Balance -70 ml 90 ml 395 ml Results Result Diagram: 10/04/1651910/04/16519 Medications Medications Current Medications Acetaminophen/ Hydrocodone Bitart ([place] (5/325)) 1 tab Q6 PO Last administered on 10/05/16 11:55; Admin Dose 1 TAB; Start 10/02/16 at 00:00 Acetaminophen 650 mg 650 mg Q4 PRN PO ELEVATED TEMPERATURE Last administered on 10/02/16 03:07; Admin Dose 650 MG; Start 10/02/16 at 02:30 Cefepime HCl (Maxipime 1gm/50 ml (Pmx)) 50 ml @ 100 mls/hr BID IVPB Last administered on 10/05/16 09:10; Admin Dose 100 MLS/HR; Start 10/02/16 at 09:00 Acetaminophen (Tylenol Tab) 1,000 mg Q4 PRN PO MODERATE PAIN LEVEL 4-6; Start 10/03/16 at 13:30 Chlorhexidine Gluconate (Peridex) 15 ml Q12 MM Last administered on 10/05/16 09:10; Admin Dose 15 ML; Start 10/03/16 at 21:00 Docusate Sodium (Colace) 200 mg QHS PO Last administered on 10/03/16 21:01; Admin Dose 200 MG; Start 10/03/16 at 21:00 Pantoprazole (Protonix Tab) 40 mg DAILY PO Last administered on 10/05/16 10:01 ; Admin Dose 40 MG; Start 10/04/16 at 09:00 Risperidone 1 mg 1 mg QHS GTB Last administered on 10/04/16 22:11; Admin Dose 1 MG; Start 10/03/16 at 22:21 Potassium Chloride/Dextrose (KCl/D5W) 1,000 ml @ 80 mls/hr [id number] IV Last administered on 10/05/16 01:37; Admin Dose 80 MLS/HR; Start 10/04/16 at 11:00 REGINALDO CHERY NP Oct 05, 2016 14:15
[2016-10-05 14:44] LABS: BASOPHILS % 0.2 % (0.0-2.0); EOSINOPHILS # 0.1 10^3/ul (0.0-0.5); EOSINOPHILS % 1.7 % (0.0-7.0); HEMATOCRIT 29.3 % (42.0-52.0); HEMOGLOBIN 9.2 g/dl (14.0-18.0); LYMPHOCYTES # 0.7 10^3/ul (0.8-2.9); LYMPHOCYTES % 13.5 % (15.0-51.0); MEAN CORPUSCULAR HEMOGLOBIN 30.2 pg (29.0-33.0); MEAN CORPUSCULAR HGB CONC 31.4 g/dl (32.0-37.0); MEAN CORPUSCULAR VOLUME 96.1 fl (82.0-101.0); MEAN PLATELET VOLUME 9.6 fl (7.4-10.4); MONOCYTE # 0.3 10^3/ul (0.3-0.9); NEUTROPHILS % 78.2 % (39.0-77.0); PLATELET COUNT 121 10^3/UL (140-415); RED BLOOD COUNT 3.05 10^6/ul (4.70-6.10); RED CELL DISTRIBUTION WIDTH 13.8 % (11.5-14.5); WHITE BLOOD COUNT 4.8 10^3/ul (4.8-10.8)
[2016-10-05 15:05] LABS: CALCIUM 8.5 mg/dl (8.4-10.2); CREATININE 1.39 mg/dl (0.61-1.24); POTASSIUM 5.3 mmol/L (3.5-5.1)
--- NOTE | 2016-10-05 15:34 | PN ---
Date/Time of Note Date/Time of Note DATE: 10/05/16 TIME: 15:31 Assessment/Plan VTE Prophylaxis VTE Prophylaxis Intervention: SCD's Lines/Catheters IV C[facility]ter Type (from [facility]): PICC Line Central line still needed: Yes Assessment/Plan Chief Complaint/Hosp Course Patient remains hemodynamically stable, potassium is 5.3, will stop IV fluids with potassium, BMP tomorrow, continue G-tube feeding Assessment/Plan - Sepsis due to urinary tract infection, resolving. Dr. Maciel is following in infection disease consultation. Continue antibiotics per ID. - Polymicrobial UTI, continue antibiotics per ID. - Neurogenic bladder with suprapubic catheter. - Hypernatremia, resolved - Acute kidney injury on top of chronic kidney disease. Continue to monitor renal function. Dr. Barker is following in nephrology consultation. - Status post right nephrectomy - History of left renal nephrolithiasis and a left renal cyst - Ventilator-dependent respiratory failure with tracheostomy. - Dysphagia with percutaneous endoscopic gastrostomy tube. - Multiple decubitus ulcers present on admission. - Cervical spine injury with paraplegia. - Bipolar disorder with psychosis. Further recommendations based on clinical course. Plan of care discussed with Dr. Barreto. Problems: Exam/Review of Systems Vital Signs Vitals Vital Signs Date Time Temp Pulse Resp B/P Pulse Ox O2 Delivery O2 Flow Rate FiO2 10/05/16 15:27 98.0 88 22 123/71 97 10/05/16 13:20 42 10/04/16 18:00 Mechanical Ventilator Intake and Output 10/04/16 10/04/16 10/05/16 15:00 23:00 07:00 Intake Total 570 ml 330 ml 1695 ml Output Total 640 ml 240 ml 1300 ml Balance -70 ml 90 ml 395 ml Exam Constitutional: alert, oriented Head: normocephalic ENMT: other (Ileostomy) Respiratory: normal air movement Cardiovascular: nl pulses, regular rate and rhythm Gastrointestinal: non-tender, other (G-tube), soft Musculoskeletal: muscle weakness, other (Bilateral lower extremities contracted ) Results Result Diagram: 10/05/16 1430 10/05/16 1430 Results 24 hrs Laboratory Tests Test 10/05/16 14:30 White Blood Count 4.8 Red Blood Count 3.05 L Hemoglobin 9.2 L Hematocrit 29.3 L Mean Corpuscular Volume 96.1 Mean Corpuscular Hemoglobin 30.2 Mean Corpuscular Hemoglobin Concent 31.4 L Red Cell Distribution Width 13.8 Platelet Count 121 #L Mean Platelet Volume 9.6 Neutrophils % 78.2 H Lymphocytes % 13.5 L Monocytes % 6.0 Eosinophils % 1.7 Basophils % 0.2 Nucleated Red Blood Cells % 0.0 Neutrophils # (Manual) 3.8 Lymphocytes # 0.7 L Monocytes # 0.3 Eosinophils # 0.1 Basophils # 0.0 Nucleated Red Blood Cells # 0.0 Sodium Level 138 Potassium Level 5.3 H Chloride Level 104 Carbon Dioxide Level 23 Anion Gap 16 Blood Urea Nitrogen 32 H Creatinine 1.39 H Glucose Level 109 Calcium Level 8.5 Medications Medications Current Medications Acetaminophen/ Hydrocodone Bitart ([place] (5/325)) 1 tab Q6 PO Last administered on 10/05/16 11:55; Admin Dose 1 TAB; Start 10/02/16 at 00:00 Acetaminophen 650 mg 650 mg Q4 PRN PO ELEVATED TEMPERATURE Last administered on 10/02/16 03:07; Admin Dose 650 MG; Start 10/02/16 at 02:30 Cefepime HCl (Maxipime 1gm/50 ml (Pmx)) 50 ml @ 100 mls/hr BID IVPB Last administered on 10/05/16 09:10; Admin Dose 100 MLS/HR; Start 10/02/16 at 09:00 Acetaminophen (Tylenol Tab) 1,000 mg Q4 PRN PO MODERATE PAIN LEVEL 4-6; Start 10/03/16 at 13:30 Chlorhexidine Gluconate (Peridex) 15 ml Q12 MM Last administered on 10/05/16 09:10; Admin Dose 15 ML; Start 10/03/16 at 21:00 Docusate Sodium (Colace) 200 mg QHS PO Last administered on 10/03/16 21:01; Admin Dose 200 MG; Start 10/03/16 at 21:00 Pantoprazole (Protonix Tab) 40 mg DAILY PO Last administered on 10/05/16 10:01 ; Admin Dose 40 MG; Start 10/04/16 at 09:00 Risperidone 1 mg 1 mg QHS GTB Last administered on 10/04/16 22:11; Admin Dose 1 MG; Start 10/03/16 at 22:21 Potassium Chloride/Dextrose (KCl/D5W) 1,000 ml @ 80 mls/hr [id number] IV Last administered on 10/05/16t 01:37; Admin Dose 80 MLS/HR; Start 10/04/16 at 11:00 AISSATOU DUNCAN Oct 05, 2016 15:34
--- NOTE | 2016-10-05 17:18 | CONS ---
Date/Time of Note Date/Time of Note DATE: 10/05/16 TIME: 17:15 Assessment/Plan Assessment/Plan Additional Assessment/Plan 1. Acute kidney injury secondary to severe prerenal azotemia and possible acute tubular necrosis from sepsis 2. Acute uremia with a BUN of 60, Cr 2.65.- slowly improving with D5W 3. Urinary tract infection with urinalysis positive for nitrites. on IV abx 5. 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 6. History of neurogenic bladder with urinary retention, status post suprapubic catheter. 7. History of previous recurrent urinary tract infections. 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 9. 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 10. Other medical history includes anxiety, depression, bipolar disorder, psychosis. 11. History of right nephrectomy with left renal nephrolithiasis and a left renal cyst measuring 5.3 cm in size. PLAN: BUN/Cr slowly improving, Na, imrpving, K 5.3- d/c IVF with KCL pt only has left kidney in place, with stone in in left kidney and left renal cyst 5.3cm, in size no evidence of hematuria Preserved EF on echocardiogram March 02, 2016 IV abx for sepsis will follow up Consultation Date/Type/Reason Admit Date/Time Oct 01, 2016 at 13:37 Initial Consult Date 10/01/16 Type of Consultation: NEPHROLOGY Referring Provider: JOSÉ ANTONIO MIRZA MD 24 HR Interval Summary Free Text/Dictation stable, transferred to telemetry floor Exam/Review of Systems Vital Signs Vitals Vital Signs Date Time Temp Pulse Resp B/P Pulse Ox O2 Delivery O2 Flow Rate FiO2 10/05/16 17:10 72 26 98 40 10/05/16 15:27 98.0 123/71 10/04/16 18:00 Mechanical Ventilator Intake and Output 10/04/16 10/04/16 10/05/16 15:00 23:00 07:00 Intake Total 570 ml 330 ml 1695 ml Output Total 640 ml 240 ml 1300 ml Balance -70 ml 90 ml 395 ml Exam Constitutional: alert Respiratory: diminished breath sounds, Bilateral Coarse BS+, + tracheostomy Cardiovascular: nl pulses, regular rate and rhythm Gastrointestinal: soft, + G tube Musculoskeletal: nl extremities to inspection Extremities: normal pulses Results Result Diagram: 10/05/16 1430 10/05/16 1430 Results 24 hrs Laboratory Tests Test 10/05/16 14:30 White Blood Count 4.8 Red Blood Count 3.05 L Hemoglobin 9.2 L Hematocrit 29.3 L Mean Corpuscular Volume 96.1 Mean Corpuscular Hemoglobin 30.2 Mean Corpuscular Hemoglobin Concent 31.4 L Red Cell Distribution Width 13.8 Platelet Count 121 #L Mean Platelet Volume 9.6 Neutrophils % 78.2 H Lymphocytes % 13.5 L Monocytes % 6.0 Eosinophils % 1.7 Basophils % 0.2 Nucleated Red Blood Cells % 0.0 Neutrophils # (Manual) 3.8 Lymphocytes # 0.7 L Monocytes # 0.3 Eosinophils # 0.1 Basophils # 0.0 Nucleated Red Blood Cells # 0.0 Sodium Level 138 Potassium Level 5.3 H Chloride Level 104 Carbon Dioxide Level 23 Anion Gap 16 Blood Urea Nitrogen 32 H Creatinine 1.39 H Glucose Level 109 Calcium Level 8.5 Medications Medications Current Medications Acetaminophen/ Hydrocodone Bitart ([place] (5/325)) 1 tab Q6 PO Last administered on 10/05/16 11:55; Admin Dose 1 TAB; Start 10/02/16 at 00:00 Acetaminophen 650 mg 650 mg Q4 PRN PO ELEVATED TEMPERATURE Last administered on 10/02/16 03:07; Admin Dose 650 MG; Start 10/02/16 at 02:30 Cefepime HCl (Maxipime 1gm/50 ml (Pmx)) 50 ml @ 100 mls/hr BID IVPB Last administered on 10/05/16 09:10; Admin Dose 100 MLS/HR; Start 10/02/16 at 09:00 Acetaminophen (Tylenol Tab) 1,000 mg Q4 PRN PO MODERATE PAIN LEVEL 4-6; Start 10/03/16 at 13:30 Chlorhexidine Gluconate (Peridex) 15 ml Q12 MM Last administered on 10/05/16 09:10; Admin Dose 15 ML; Start 10/03/16 at 21:00 Docusate Sodium (Colace) 200 mg QHS PO Last administered on 10/03/16 21:01; Admin Dose 200 MG; Start 10/03/16 at 21:00 Pantoprazole (Protonix Tab) 40 mg DAILY PO Last administered on 10/05/16 10:01 ; Admin Dose 40 MG; Start 10/04/16 at 09:00 Risperidone (Risperdal) 1 mg QHS GTB Last administered on 10/04/16t 22:11; Admin Dose 1 MG; Start 10/03/16 at 22:21 TIARA CISNEROS MD Oct 05, 2016 17:18
[2016-10-05] MEDS ORDERED: NA POLYST SULFON 15 GM/60 ML BTL PO ONE (17:30)
[2016-10-05] MEDS: COLLAGENASE 30 GM TUBE TOP SCH (20:47)
[2016-10-05] MEDS: DOCUSATE SODIUM 100 MG CAP PO SCH (20:47)
[2016-10-05] MEDS: RISPERIDONE 1 MG TAB GTB SCH (20:48)
[2016-10-06] VITALS (18 sets, daily range): BP systolic 109–128; BP diastolic 66–92; PULSE 93–116; RESP 16–37
[2016-10-06] MEDS: HYDROCODONE/APAP (5/325) TAB PO SCH ×4 (00:04→18:15)
[2016-10-06 08:03] LABS: CALCIUM 8.8 mg/dl (8.4-10.2); CREATININE 1.37 mg/dl (0.61-1.24); POTASSIUM 4.8 mmol/L (3.5-5.1)
[2016-10-06] MEDS: CEFEPIME 1GM/50 ML (PMX) 50 ML IVPB SCH (08:56)
[2016-10-06] MEDS: PANTOPRAZOLE (EC) 40 MG TAB PO SCH (08:56)
[2016-10-06] MEDS: CHLORHEXIDINE GLUCONATE 15 ML UD CUP MM SCH (09:00)
[2016-10-06] MEDS: COLLAGENASE 30 GM TUBE TOP SCH (09:30)
[2016-10-06 09:36] LABS: ABNORMAL IP MESSAGE 1; BASOPHILS % 0.1 % (0.0-2.0); EOSINOPHILS % 0.3 % (0.0-7.0); HEMOGLOBIN 10.2 g/dl (14.0-18.0); LYMPHOCYTES # 0.3 10^3/ul (0.8-2.9); LYMPHOCYTES % 3.7 % (15.0-51.0); MEAN CORPUSCULAR HEMOGLOBIN 30.4 pg (29.0-33.0); MEAN CORPUSCULAR HGB CONC 31.9 g/dl (32.0-37.0); MEAN CORPUSCULAR VOLUME 95.2 fl (82.0-101.0); MEAN PLATELET VOLUME 10.5 fl (7.4-10.4); MONOCYTE # 0.3 10^3/ul (0.3-0.9); MONOCYTES % 3.5 % (0.0-11.0); PLATELET COUNT 137 10^3/UL (140-415); POSITIVE DIFF @See below; RED BLOOD COUNT 3.36 10^6/ul (4.70-6.10); RED CELL DISTRIBUTION WIDTH 13.6 % (11.5-14.5); WHITE BLOOD COUNT 9.2 10^3/ul (4.8-10.8)
--- NOTE | 2016-10-06 10:02 | CONS ---
Date/Time of Note Date/Time of Note DATE: 10/06/16 TIME: 10:01 Assessment/Plan Assessment/Plan Additional Assessment/Plan 1. Acute kidney injury secondary to severe prerenal azotemia and possible acute tubular necrosis from sepsis 2. Acute uremia with a BUN of 60, Cr 2.65.- slowly improving with D5W 3. Urinary tract infection with urinalysis positive for nitrites. on IV abx 5. 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 6. History of neurogenic bladder with urinary retention, status post suprapubic catheter. 7. History of previous recurrent urinary tract infections. 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 9. 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 10. Other medical history includes anxiety, depression, bipolar disorder, psychosis. 11. History of right nephrectomy with left renal nephrolithiasis and a left renal cyst measuring 5.3 cm in size. PLAN: BUN/Cr slowly improving, Na,146, K 4.6, Off IVF now will monitor renal function pt only has left kidney in place, with stone in in left kidney and left renal cyst 5.3cm, in size no evidence of hematuria Preserved EF on echocardiogram March 02, 2016 IV abx for sepsis will follow up Consultation Date/Type/Reason Admit Date/Time Oct 01, 2016 at 13:37 Initial Consult Date 10/01/16 Type of Consultation: NEPHROLOGY Referring Provider: JOSÉ ANTONIO MIRZA MD 24 HR Interval Summary Free Text/Dictation Cr improved to 1.37, na 146, BP stable Exam/Review of Systems Vital Signs Vitals Vital Signs Date Time Temp Pulse Resp B/P Pulse Ox O2 Delivery O2 Flow Rate FiO2 10/06/16 09:35 112 37 94 40 10/06/16 07:34 98.1 113/73 10/04/16 18:00 Mechanical Ventilator Intake and Output 10/05/16 10/05/16 10/06/16 15:00 23:00 07:00 Intake Total 1620 ml 925 ml Output Total 1400 ml 2600 ml Balance 220 ml -1675 ml Exam Constitutional: alert Respiratory: diminished breath sounds, Bilateral Coarse BS+, + tracheostomy Cardiovascular: nl pulses, regular rate and rhythm Gastrointestinal: soft, + G tube Musculoskeletal: nl extremities to inspection Extremities: normal pulses Results Result Diagram: 10/06/16 0640 10/06/16 0640 Results 24 hrs Laboratory Tests Test 10/05/16 14:30 10/06/16 06:40 White Blood Count 4.8 9.2 # Red Blood Count 3.05 L 3.36 L Hemoglobin 9.2 L 10.2 L Hematocrit 29.3 L 32.0 L Mean Corpuscular Volume 96.1 95.2 Mean Corpuscular Hemoglobin 30.2 30.4 Mean Corpuscular Hemoglobin Concent 31.4 L 31.9 L Red Cell Distribution Width 13.8 13.6 Platelet Count 121 #L 137 L Mean Platelet Volume 9.6 10.5 H Neutrophils % 78.2 H 92.0 H Lymphocytes % 13.5 L 3.7 L Monocytes % 6.0 3.5 Eosinophils % 1.7 0.3 Basophils % 0.2 0.1 Nucleated Red Blood Cells % 0.0 0.0 Neutrophils # (Manual) 3.8 8.5 H Lymphocytes # 0.7 L 0.3 L Monocytes # 0.3 0.3 Eosinophils # 0.1 0.0 Basophils # 0.0 0.0 Nucleated Red Blood Cells # 0.0 0.0 Sodium Level 138 146 H Potassium Level 5.3 H 4.8 Chloride Level 104 109 Carbon Dioxide Level 23 22 Anion Gap 16 20 H Blood Urea Nitrogen 32 H 33 H Creatinine 1.39 H 1.37 H Glucose Level 109 133 Calcium Level 8.5 8.8 Medications Medications Current Medications Acetaminophen/ Hydrocodone Bitart ([place] (5/325)) 1 tab Q6 PO Last administered on 10/06/16 06:03; Admin Dose 1 TAB; Start 10/02/16 at 00:00 Acetaminophen 650 mg 650 mg Q4 PRN PO ELEVATED TEMPERATURE Last administered on 10/02/16 03:07; Admin Dose 650 MG; Start 10/02/16 at 02:30 Cefepime HCl (Maxipime 1gm/50 ml (Pmx)) 50 ml @ 100 mls/hr BID IVPB Last administered on 10/06/16 08:56; Admin Dose 100 MLS/HR; Start 10/02/16 at 09:00 Acetaminophen (Tylenol Tab) 1,000 mg Q4 PRN PO MODERATE PAIN LEVEL 4-6 Last administered on 10/05/16 20:47; Admin Dose 1,000 MG; Start 10/03/16 at 13:30 Chlorhexidine Gluconate (Peridex) 15 ml Q12 MM Last administered on 10/05/16 20:47; Admin Dose 15 ML; Start 10/03/16 at 21:00 Docusate Sodium (Colace) 200 mg QHS PO Last administered on 10/05/16 20:47; Admin Dose 200 MG; Start 10/03/16 at 21:00 Pantoprazole (Protonix Tab) 40 mg DAILY PO Last administered on 10/06/16 08:56 ; Admin Dose 40 MG; Start 10/04/16 at 09:00 Risperidone (Risperdal) 1 mg QHS GTB Last administered on 10/05/16 20:48; Admin Dose 1 MG; Start 10/03/16 at 22:21 Collagenase (Santyl) 1 applic DAILY TOP Last administered on 10/05/16 20:47; Admin Dose 1 APPLIC; Start 10/05/16 at 19:30 TIARA CISNEROS MD Oct 06, 2016 10:02
--- NOTE | 2016-10-06 10:19 | CONS ---
Date/Time of Note Date/Time of Note DATE: 10/06/16 TIME: 10:16 Assessment/Plan Assessment/Plan Additional Assessment/Plan Ventilator setting; AC of 14, tidal volume 500, PEEP of 5, 40% FiO2. Assessment and recommendations; 1. Patient admitted for sepsis due to UTI with E. coli and Proteus cultured from urine. Patient currently on appropriate antibiotic regimen. 2. Chronic respiratory failure due to C-spine injury. 3. Mild anemia and thrombocytopenia. Continue current treatment. Consider discharge. Consultation Date/Type/Reason Admit Date/Time Oct 01, 2016 at 13:37 Initial Consult Date 10/01/16 Type of Consultation: Pulmonary/critical care Referring Provider: JOSÉ ANTONIO MIRZA MD 24 HR Interval Summary Free Text/Dictation Patient condition is stable. Denies any shortness of breath. Any fever or chills. General exam; young male, on ventilator via tracheostomy, awake and alert. Currently in no distress. Exam/Review of Systems Vital Signs Vitals Vital Signs Date Time Temp Pulse Resp B/P Pulse Ox O2 Delivery O2 Flow Rate FiO2 10/06/16 09:35 112 37 94 40 10/06/16 07:34 98.1 113/73 10/04/16 18:00 Mechanical Ventilator Intake and Output 10/05/16 10/05/16 10/06/16 15:00 23:00 07:00 Intake Total 1620 ml 925 ml Output Total 1400 ml 2600 ml Balance 220 ml -1675 ml Exam HEENT exam; supple neck, no JVD. No lymphadenopathy. Midline trachea. No thyromegaly. Pupils are midsize and reactive to light. Tracheostomy in place. Insertion site is clean. Chest exam; clear to auscultation. S1-S2 audible, no murmurs. Regular rhythm. Abdomen exam; soft, nontender. Nondistended. Bowel sounds audible. No organomegaly. Extremity exam; no peripheral edema. SPECIAL NEEDS LIBRARIAN exam; patient is awake and alert able to move upper extremities to a purposeful extent. Has stable paraplegia. Results Result Diagram: 10/06/16 0640 10/06/16 0640 Results 24 hrs Laboratory Tests Test 10/05/16 14:30 10/06/16 06:40 White Blood Count 4.8 9.2 # Red Blood Count 3.05 L 3.36 L Hemoglobin 9.2 L 10.2 L Hematocrit 29.3 L 32.0 L Mean Corpuscular Volume 96.1 95.2 Mean Corpuscular Hemoglobin 30.2 30.4 Mean Corpuscular Hemoglobin Concent 31.4 L 31.9 L Red Cell Distribution Width 13.8 13.6 Platelet Count 121 #L 137 L Mean Platelet Volume 9.6 10.5 H Neutrophils % 78.2 H 92.0 H Lymphocytes % 13.5 L 3.7 L Monocytes % 6.0 3.5 Eosinophils % 1.7 0.3 Basophils % 0.2 0.1 Nucleated Red Blood Cells % 0.0 0.0 Neutrophils # (Manual) 3.8 8.5 H Lymphocytes # 0.7 L 0.3 L Monocytes # 0.3 0.3 Eosinophils # 0.1 0.0 Basophils # 0.0 0.0 Nucleated Red Blood Cells # 0.0 0.0 Sodium Level 138 146 H Potassium Level 5.3 H 4.8 Chloride Level 104 109 Carbon Dioxide Level 23 22 Anion Gap 16 20 H Blood Urea Nitrogen 32 H 33 H Creatinine 1.39 H 1.37 H Glucose Level 109 133 Calcium Level 8.5 8.8 Medications Medications Current Medications Acetaminophen/ Hydrocodone Bitart ([place] (5/325)) 1 tab Q6 PO Last administered on 10/06/16 06:03; Admin Dose 1 TAB; Start 10/02/16 at 00:00 Acetaminophen 650 mg 650 mg Q4 PRN PO ELEVATED TEMPERATURE Last administered on 10/02/16 03:07; Admin Dose 650 MG; Start 10/02/16 at 02:30 Cefepime HCl (Maxipime 1gm/50 ml (Pmx)) 50 ml @ 100 mls/hr BID IVPB Last administered on 10/06/16 08:56; Admin Dose 100 MLS/HR; Start 10/02/16 at 09:00 Acetaminophen (Tylenol Tab) 1,000 mg Q4 PRN PO MODERATE PAIN LEVEL 4-6 Last administered on 10/05/16 20:47; Admin Dose 1,000 MG; Start 10/03/16 at 13:30 Chlorhexidine Gluconate (Peridex) 15 ml Q12 MM Last administered on 10/05/16 20:47; Admin Dose 15 ML; Start 10/03/16 at 21:00 Docusate Sodium (Colace) 200 mg QHS PO Last administered on 10/05/16 20:47; Admin Dose 200 MG; Start 10/03/16 at 21:00 Pantoprazole (Protonix Tab) 40 mg DAILY PO Last administered on 10/06/16 08:56 ; Admin Dose 40 MG; Start 10/04/16 at 09:00 Risperidone (Risperdal) 1 mg QHS GTB Last administered on 10/05/16 20:48; Admin Dose 1 MG; Start 10/03/16 at 22:21 Collagenase (Santyl) 1 applic DAILY TOP Last administered on 10/06/16 09:30; Admin Dose 1 APPLIC; Start 10/05/16 at 19:30 [place] Oct 06, 2016 10:19
--- NOTE | 2016-10-06 14:52 | CONS ---
Date/Time of Note Date/Time of Note DATE: 10/06/16 TIME: 14:51 Assessment/Plan Assessment/Plan Chief Complaint/Hosp Course o acute changes, sleeping, no fevers over night, nad Microbiology: Urine culture grew Proteus mirabilis, E coli, ESBL. Blood cultures remain negative. INDWELLINGS: Trach, PEG, suprapubic catheter, PICC line. ANTIMICROBIALS: Cefepime #5 OBJECTIVE DATA: GENERAL: Chronically ill, paraplegic, middle-aged man, who is alert, in no distress. HEENT: Head atraumatic, normocephalic. Sclerae anicteric. Buccal mucosa pink. NECK: Supple. Tracheostomy present. CHEST: Rise symmetrical. Breath sounds diminished at the bases. HEART: S1, S2. ABDOMEN: Soft, bowel sounds present. EXTREMITIES: Without cyanosis, wasted. and contractures lower extremities. ASSESSMENT: 1. Resolving sepsis status post shock. 2. Recurrent polymicrobial urinary tract infection. 3. Neurogenic bladder. 4. Paraplegia. 5. Acute renal failure. 6. Chronic respiratory failure. 7. Seizure disorder. PLAN: Remains stable, continue present care, continue abx DW staff Problems: Consultation Date/Type/Reason Admit Date/Time Oct 01, 2016 at 13:37 Initial Consult Date 10/01/16 Type of Consultation: id Referring Provider: JOSÉ ANTONIO MIRZA MD Exam/Review of Systems Vital Signs Vitals Vital Signs Date Time Temp Pulse Resp B/P Pulse Ox O2 Delivery O2 Flow Rate FiO2 10/06/16 13:00 96 30 95 40 10/06/16 11:27 97.7 123/81 10/04/16 18:00 Mechanical Ventilator Intake and Output 10/05/16 10/05/16 10/06/16 15:00 23:00 07:00 Intake Total 1620 ml 925 ml Output Total 1400 ml 2600 ml Balance 220 ml -1675 ml Results Result Diagram: 10/06/16 0640 10/06/16 0640 Results 24 hrs Laboratory Tests Test 10/06/16 06:40 White Blood Count 9.2 # Red Blood Count 3.36 L Hemoglobin 10.2 L Hematocrit 32.0 L Mean Corpuscular Volume 95.2 Mean Corpuscular Hemoglobin 30.4 Mean Corpuscular Hemoglobin Concent 31.9 L Red Cell Distribution Width 13.6 Platelet Count 137 L Mean Platelet Volume 10.5 H Neutrophils % 92.0 H Lymphocytes % 3.7 L Monocytes % 3.5 Eosinophils % 0.3 Basophils % 0.1 Nucleated Red Blood Cells % 0.0 Neutrophils # (Manual) 8.5 H Lymphocytes # 0.3 L Monocytes # 0.3 Eosinophils # 0.0 Basophils # 0.0 Nucleated Red Blood Cells # 0.0 Sodium Level 146 H Potassium Level 4.8 Chloride Level 109 Carbon Dioxide Level 22 Anion Gap 20 H Blood Urea Nitrogen 33 H Creatinine 1.37 H Glucose Level 133 Calcium Level 8.8 Medications Medications Current Medications Acetaminophen/ Hydrocodone Bitart ([place] (5/325)) 1 tab Q6 PO Last administered on 10/06/16 13:58; Admin Dose 1 TAB; Start 10/02/16 at 00:00 Acetaminophen 650 mg 650 mg Q4 PRN PO ELEVATED TEMPERATURE Last administered on 10/02/16 03:07; Admin Dose 650 MG; Start 10/02/16 at 02:30 Cefepime HCl (Maxipime 1gm/50 ml (Pmx)) 50 ml @ 100 mls/hr BID IVPB Last administered on 10/06/16 08:56; Admin Dose 100 MLS/HR; Start 10/02/16 at 09:00 Acetaminophen (Tylenol Tab) 1,000 mg Q4 PRN PO MODERATE PAIN LEVEL 4-6 Last administered on 10/05/16 20:47; Admin Dose 1,000 MG; Start 10/03/16 at 13:30 Chlorhexidine Gluconate (Peridex) 15 ml Q12 MM Last administered on 10/06/16 09:00; Admin Dose 15 ML; Start 10/03/16 at 21:00 Docusate Sodium (Colace) 200 mg QHS PO Last administered on 10/05/16 20:47; Admin Dose 200 MG; Start 10/03/16 at 21:00 Pantoprazole (Protonix Tab) 40 mg DAILY PO Last administered on 10/06/16 08:56 ; Admin Dose 40 MG; Start 10/04/16 at 09:00 Risperidone (Risperdal) 1 mg QHS GTB Last administered on 10/05/16 20:48; Admin Dose 1 MG; Start 10/03/16 at 22:21 Collagenase (Santyl) 1 applic DAILY TOP Last administered on 8/31/17at 09:30; Admin Dose 1 APPLIC; Start 10/05/16 at 19:30 REGINALDO CHERY NP Oct 06, 2016 14:52
--- NOTE | 2016-10-06 15:34 | PDOCDIS ---
Discharge Instructions CONDITION Patient Condition: Stable HOME CARE INSTRUCTIONS: Special Diet: G tube feeding ACTIVITY: Activity Restrictions: Slowly Increase Activity Rest between Activity NAE VELAZCO Oct 06, 2016 15:33
--- NOTE | 2016-10-06 15:34 | DS ---
Date/Time of Note Date/Time of Note DATE: 10/06/16 TIME: 15:34 Discharge Summary Admission/Discharge Info Admit Date/Time Oct 01, 2016 at 13:37 Discharge Date/Time Hx of Present Illness MILD SOB WITH LOW O2 SATS SINCE THIS AM. IMPROVED WITH O2 AND BAGGING HPI 41-year-old male presents to the emergency department from his care facility for evaluation of shortness of breath with low oxygen saturation. Patient is trach to vent providing very little insight. I reviewed old records on the patient. Patient was just recently hospitalized and released back to his facility. He returns the emergency department by ambulance with the above complaints. I have reviewed the digital associate media director pre-hospital care. Pre-hospital vital signs were reviewed. Pre-hospital diagnostic tests were reviewed. ROS All systems reviewed and are negative except as per history of present illness. Hospital Course o acute changes, sleeping, no fevers over night, nad Microbiology: Urine culture grew Proteus mirabilis, E coli, ESBL. Blood cultures remain negative. INDWELLINGS: Trach, PEG, suprapubic catheter, PICC line. ANTIMICROBIALS: Cefepime #5 OBJECTIVE DATA: GENERAL: Chronically ill, paraplegic, middle-aged man, who is alert, in no distress. HEENT: Head atraumatic, normocephalic. Sclerae anicteric. Buccal mucosa pink. NECK: Supple. Tracheostomy present. CHEST: Rise symmetrical. Breath sounds diminished at the bases. HEART: S1, S2. ABDOMEN: Soft, bowel sounds present. EXTREMITIES: Without cyanosis, wasted. and contractures lower extremities. ASSESSMENT: 1. Resolving sepsis status post shock. 2. Recurrent polymicrobial urinary tract infection. 3. Neurogenic bladder. 4. Paraplegia. 5. Acute renal failure. 6. Chronic respiratory failure. 7. Seizure disorder. PLAN: Remains stable, continue present care, continue abx staff Home Meds Reported Medications Acetaminophen* (Acetaminophen*) 650 Mg Tablet, 650 MG PO TRACHE CHANGE, #30 TAB GIVE 30MIN PRIOR TO CHANGE 10/01/16 Acetaminophen* (Acetaminophen*) 500 MG Extra Strength Tablet, 1000 MG PO Q4 Y for MODERATE PAIN LEVEL 4-6, TAB 10/01/16 Cran/Vitc/Mannose/Inulin/Brom (Uti-Stat Liquid) 3,875 Mg/30 Ml Liquid, 3875 MG GTB DAILY 10/01/16 Ascorbic Acid* (Ascorbic Acid*) 500 Mg/5 Ml Syrup, 500 MG GTB DAILY, #300 ML 10/01/16 Zinc Sulfate* (Zinc Sulfate*) 220 Mg Tablet, 220 MG GTB DAILY, TAB 10/01/16 Risperidone* (Risperdal* Liq) 1 Mg/Ml Solution, 1 MG GTB QHS, ML 10/01/16 Pantoprazole* (Protonix*) 40 Mg Tablet.dr, 40 MG GTB DAILY, TAB 10/01/16 Hydrocodone/Acetaminophen ([place] 5-325 Tablet) 1 Each Tablet, 2 EACH GTB BID Y for PAIN MANAGEMENT, TAB 10/01/16 Hydrocodone/Acetaminophen ([place] 5-325 Tablet) 1 Each Tablet, 1 EACH GTB Q6 Y for SEVERE PAIN LEVEL 7-10, TAB 10/01/16 Gabapentin* (Gabapentin* Liq) 250 Mg/5 Ml Solution, 100 MG GTB TID, ML 10/01/16 Folic Acid/Vitamin B Comp W-C (Nephrocaps Capsule) 1 Mg Capsule, 1 MG GTB DAILY , CAP 10/01/16 Polyethylene Glycol* (Miralax*) 17 Gm Powd.pack, 17 GM GTB DAILY, #30 PACKET 10/01/16 Enoxaparin Sodium* (Lovenox*) 30 Mg/0.3 Ml Disp.syrin, 30 MG SQ DAILY, SYR 10/01/16 Na Phos,M-B/Na Phos,Di-Ba ([place]EMA READY TO USE) 135 Ml Enema, 135 ML RC EVERY TWO DAYS Y for CONSTIPATION, ENEMA 10/01/16 Ferrous Sulfate* (Ferrous Sulfate*) 220 Mg/5 Ml Solution, 330 MG GTB DAILY, ML 10/01/16 Bisacodyl* (Bisacodyl*) 10 Mg Supp, 10 MG DE Q24H Y for CONSTIPATION, SUPP 10/01/16 Docusate Sodium* (Colace*) 100 Mg Capsule, 200 MG GTB QHS, #60 CAP 10/01/16 Chlorhexidine Gluconate (Peridex) 473 Ml Mouthwash, 15 ML MM Q12, BOTTLE 10/01/16 Citric Acid/Sodium Citrate* (Bicitra* (PEDIATRIC)) 1 Meq/Ml Soln, 10 MEQ GTB TID for 30 Days, BOTTLE 550-334ML/5MG 10/01/16 Albuterol Sulfate* (Albuterol Sulfate* Neb) 0.083%-3 Ml Neb, 2.5 MG NEB Q6 Y for WHEEZING AND SOB, #30 VIAL 10/01/16 Albuterol Sulfate* (Albuterol Sulfate* Neb) 0.083%-3 Ml Neb, 2.5 MG NEB Q3H Y for WHEEZING AND SOB, #30 VIAL 05/03/16 Magnesium Hydroxide* (Milk Of Magnesia*) 400 Mg/5 Ml Oral.susp, 30 ML GTB DAILY Y for CONSTIPATION, ML 04/16/15 Acetaminophen* (Tylenol*) 325 Mg Tablet, 650 MG GTB Q4H Y for MILD PAIN LEVEL 1- 3, TAB 04/16/15 Discontinued Reported Medications Bisacodyl* (Bisacodyl*) 10 Mg Supp, 10 MG DE DAILY Y for CONSTIPATION, SUPP 05/03/16 Docusate Sodium* (Docusate Sodium*) 100 Mg Capsule, 100 MG GTB BID, #60 CAP 05/03/16 Hydrocodone/Acetaminophen ([place] 5-325 Tablet) 1 Each Tablet, 1 EACH GTB Q6, TAB 02/24/16 Primary Care Provider Hitesh Barreto MD Pending Labs Laboratory Tests Test 10/06/16 06:40 White Blood Count 9.210^3/ul (4.8-10.8) Red Blood Count 3.3610^6/ul (4.70-6.10) Hemoglobin 10.2g/dl (14.0-18.0) Hematocrit 32.0% (42.0-52.0) Mean Corpuscular Volume 95.2fl (82.0-101.0) Mean Corpuscular Hemoglobin 30.4pg (29.0-33.0) Mean Corpuscular Hemoglobin Concent 31.9g/dl (32.0-37.0) Red Cell Distribution Width 13.6% (11.5-14.5) Platelet Count 91765^3/UL (140-415) Mean Platelet Volume 10.5fl (7.4-10.4) Neutrophils % 92.0% (39.0-77.0) Lymphocytes % 3.7% (15.0-51.0) Monocytes % 3.5% (0.0-11.0) Eosinophils % 0.3% (0.0-7.0) Basophils % 0.1% (0.0-2.0) Nucleated Red Blood Cells % 0.0/100WBC (0.0-0.0) Neutrophils # (Manual) 8.510^3/ul (1.7-7.5) Lymphocytes # 0.310^3/ul (0.8-2.9) Monocytes # 0.310^3/ul (0.3-0.9) Eosinophils # 0.010^3/ul (0.0-0.5) Basophils # 0.010^3/ul (0.0-0.1) Nucleated Red Blood Cells # 0.010^3/ul (0.0-0.0) Sodium Level 146mmol/L (135-144) Potassium Level 4.8mmol/L (3.5-5.1) Chloride Level 109mmol/L (97-110) Carbon Dioxide Level 22mmol/L (21-31) Anion Gap 20 (8-16) Blood Urea Nitrogen 33mg/dl (7-20) Creatinine 1.37mg/dl (0.61-1.24) Glucose Level 133mg/dl (70-220) Calcium Level 8.8mg/dl (8.4-10.2) NAE VELAZCO Oct 06, 2016 15:34
== END 2016-10-06 19:15 | DRG 870 ==
LOC: E/R 08:08 → ICU 13:37 → TEL 10-04 18:27
PROVIDERS: ADMIT Internal Medicine; ATTEND Internal Medicine
PROC: 5A1955Z Respiratory Ventilation, Greater than 96 Consecutive Hours (ICD-10-PCS; principal; 2016-10-02)
PROC: 0B21XFZ Change Tracheostomy Device in Trachea, External Approach (ICD-10-PCS; 2016-10-02)
PROC: 02HV33Z Insertion of Infusion Device into Superior Vena Cava, Percutaneous Approach (ICD-10-PCS; 2016-10-02)
DX: A41.9 Sepsis, unspecified organism (principal); J96.22 Acute and chronic respiratory failure with hypercapnia; R65.21 Severe sepsis with septic shock; Z99.11 Dependence on respirator [ventilator] status; L89.154 Pressure ulcer of sacral region, stage 4; L89.223 Pressure ulcer of left hip, stage 3; N17.9 Acute kidney failure, unspecified; N39.0 Urinary tract infection, site not specified; G82.20 Paraplegia, unspecified; T85.618A Breakdown (mechanical) of other specified internal prosthetic devices, implants and grafts, initial encounter; Z93.0 Tracheostomy status; N31.9 Neuromuscular dysfunction of bladder, unspecified; R33.8 Other retention of urine; Z93.1 Gastrostomy status; Z93.59 Other cystostomy status; D64.9 Anemia, unspecified; F31.9 Bipolar disorder, unspecified; G40.909 Epilepsy, unspecified, not intractable, without status epilepticus; N18.9 Chronic kidney disease, unspecified; N20.0 Calculus of kidney; Y84.8 Other medical procedures as the cause of abnormal reaction of the patient, or of later complication, without mention of misadventure at the time of the procedure; B96.4 Proteus (mirabilis) (morganii) as the cause of diseases classified elsewhere; B96.20 Unspecified Escherichia coli [E. coli] as the cause of diseases classified elsewhere; Z16.12 Extended spectrum beta lactamase (ESBL) resistance; Z16.24 Resistance to multiple antibiotics; Z90.5 Acquired absence of kidney; Z79.02 Long term (current) use of antithrombotics/antiplatelets; Z74.01 Bed confinement status
CPT/HCPCS: 36569; 36600; 71010; 76937; 80048; 80053; 81001; 81003; 82570; 82803; 83605; 84300; 84484; 85025; 85610; 85730; 86850; 86870; 86900; 86901; 87040; 87086; 89190; 93005; 94003; 96374; 96375; C1769; J0692; J2270; J2543; J3370; J3480; J7030; J7060; J7070

== ENCOUNTER 2016-10-20 04:26 | Inpatient (IN) | payer MEDICARE, OTHER ==
[~2016-10-20] VITALS: Ht 170.2 cm; Wt 62.5 kg
[2016-10-20] VITALS (21 sets, daily range): BP systolic 89–132; BP diastolic 51–81; PULSE 98–127; RESP 18–35; TEMP 98.4
[~2016-10-20 04:26] MED LIST changes: +ACET-141 PO; +ACET-2047 PO; +ASCO500S2 GTB; +BICS GTB; +CHLO473M4 MM; +CRAN3875 GTB; +DOCU-144 GTB; -DOCU-159 GTB; +ENOX30DI10 SQ; +FERR220S13 GTB; +FOLI1CAP GTB; +GABA250S2 GTB; +NA P135E RC; +PANT40TA3 GTB; +POLY17PO6 GTB; +RISS GTB; +ZINC220T GTB
[2016-10-20] MEDS ORDERED: ONDANSETRON 4 MG INJ IV STA (04:44)
[2016-10-20] MEDS ORDERED: SOD CHLORIDE 0.9% 1,000 ML IV STA (04:44)
[2016-10-20] MEDS ORDERED: HYDROmorphONE 1 MG/ML SYG IV STA (04:44)
[2016-10-20 05:30] LABS: ABNORMAL IP MESSAGE 1; BASOPHILS % 0.3 % (0.0-2.0); EOSINOPHILS # 0.2 10^3/ul (0.0-0.5); EOSINOPHILS % 3.5 % (0.0-7.0); HEMATOCRIT 28.9 % (42.0-52.0); HEMOGLOBIN 8.8 g/dl (14.0-18.0); LYMPHOCYTES # 0.5 10^3/ul (0.8-2.9); LYMPHOCYTES % 7.2 % (15.0-51.0); MEAN CORPUSCULAR HEMOGLOBIN 30.6 pg (29.0-33.0); MEAN CORPUSCULAR HGB CONC 30.4 g/dl (32.0-37.0); MEAN CORPUSCULAR VOLUME 100.3 fl (82.0-101.0); MEAN PLATELET VOLUME 11.7 fl (7.4-10.4); MONOCYTE # 0.5 10^3/ul (0.3-0.9); NEUTROPHIL # 5.2 10^3/ul (1.6-7.5); NEUTROPHILS % 80.4 % (39.0-77.0); PLATELET COUNT 147 10^3/UL (140-415); POSITIVE DIFF @See below; RED BLOOD COUNT 2.88 10^6/ul (4.70-6.10); RED CELL DISTRIBUTION WIDTH 14.2 % (11.5-14.5); WHITE BLOOD COUNT 6.5 10^3/ul (4.8-10.8)
[2016-10-20 05:53] LABS: CALCIUM 9.4 mg/dl (8.4-10.2); CREATININE 1.5 mg/dl (0.61-1.24)
--- NOTE | 2016-10-20 05:55 | ERA ---
ER Documentation Chief Complaint Date/Time DATE: 10/20/16 TIME: 05:51 Chief Complaint SENT FROM [facility] FOR K+ OF 6.8; STATES PAIN "ALL OVER" 11/15. HPI This is a 41-year-old male who is quadriplegic secondary to his C5-C6 injury during a wrestling accident at the age of 15. He was sent from [facility] for hyperkalemia. The patient had labs drawn yesterday which showed high potassium then repeated again which again showed high potassium. The patient says he has pain all over and has chronic pain. Other than that he has no symptoms. He says he has no cough no vomiting or diarrhea. The patient is trach to vent dependent with oxygen saturations of 98% here. He also has a chronic indwelling Morris ROS All systems reviewed and are negative except as per history of present illness. Medications Home Meds Reported Medications Acetaminophen* (Acetaminophen*) 650 Mg Tablet, 650 MG PO TRACHE CHANGE, #30 TAB GIVE 30MIN PRIOR TO CHANGE 10/01/16 Acetaminophen* (Acetaminophen*) 500 MG Extra Strength Tablet, 1000 MG PO Q4 Y for MODERATE PAIN LEVEL 4-6, TAB 10/01/16 Cran/Vitc/Mannose/Inulin/Brom (Uti-Stat Liquid) 3,875 Mg/30 Ml Liquid, 3875 MG GTB DAILY 10/01/16 Ascorbic Acid* (Ascorbic Acid*) 500 Mg/5 Ml Syrup, 500 MG GTB DAILY, #300 ML 10/01/16 Zinc Sulfate* (Zinc Sulfate*) 220 Mg Tablet, 220 MG GTB DAILY, TAB 10/01/16 Risperidone* (Risperdal* Liq) 1 Mg/Ml Solution, 1 MG GTB QHS, ML 10/01/16 Pantoprazole* (Protonix*) 40 Mg Tablet.dr, 40 MG GTB DAILY, TAB 10/01/16 Hydrocodone/Acetaminophen ([place] 5-325 Tablet) 1 Each Tablet, 1 EACH GTB Q6 Y for SEVERE PAIN LEVEL 7-10, TAB 10/01/16 Gabapentin* (Gabapentin* Liq) 250 Mg/5 Ml Solution, 100 MG GTB TID, ML 10/01/16 Folic Acid/Vitamin B Comp W-C (Nephrocaps Capsule) 1 Mg Capsule, 1 MG GTB DAILY , CAP 10/01/16 Polyethylene Glycol* (Miralax*) 17 Gm Powd.pack, 17 GM GTB DAILY, #30 PACKET 10/01/16 Enoxaparin Sodium* (Lovenox*) 30 Mg/0.3 Ml Disp.syrin, 30 MG SQ DAILY, SYR 10/01/16 Na Phos,M-B/Na Phos,Di-Ba (ENEMA READY TO USE) 135 Ml Enema, 135 ML RC EVERY TWO DAYS Y for CONSTIPATION, ENEMA 10/01/16 Ferrous Sulfate* (Ferrous Sulfate*) 220 Mg/5 Ml Solution, 330 MG GTB DAILY, ML 10/01/16 Bisacodyl* (Bisacodyl*) 10 Mg Supp, 10 MG MS Q24H Y for CONSTIPATION, SUPP 10/01/16 Docusate Sodium* (Colace*) 100 Mg Capsule, 200 MG GTB QHS, #60 CAP 10/01/16 Chlorhexidine Gluconate (Peridex) 473 Ml Mouthwash, 15 ML MM Q12, BOTTLE 10/01/16 Citric Acid/Sodium Citrate* (Bicitra* (PEDIATRIC)) 1 Meq/Ml Soln, 10 MEQ GTB TID for 30 Days, BOTTLE 550-334ML/5MG 10/01/16 Albuterol Sulfate* (Albuterol Sulfate* Neb) 0.083%-3 Ml Neb, 2.5 MG NEB Q6 Y for WHEEZING AND SOB, #30 VIAL 10/01/16 Albuterol Sulfate* (Albuterol Sulfate* Neb) 0.083%-3 Ml Neb, 2.5 MG NEB Q3H Y for WHEEZING AND SOB, #30 VIAL 05/03/16 Magnesium Hydroxide* (Milk Of Magnesia*) 400 Mg/5 Ml Oral.susp, 30 ML GTB DAILY Y for CONSTIPATION, ML 04/16/15 Acetaminophen* (Tylenol*) 325 Mg Tablet, 650 MG GTB Q4H Y for MILD PAIN LEVEL 1- 3, TAB 04/16/15 Allergies Allergies: Coded Allergies: No Known Allergy (Unverified , 10/01/16) PMhx/Soc Medical and Surgical Hx: pt denies Medical Hx, pt denies Surgical Hx History of Surgery: Yes (Cervical spinal surgery ([id number])) Anesthesia Reaction: No Hx Neurological Disorder: Yes (parapalegic (1990)) Hx Respiratory Disorders: Yes (chronic trach to vent (2014)) Hx Cardiac Disorders: No Hx Psychiatric Problems: Yes (bipolar, anxiety, depression ) Hx Miscellaneous Medical Probl: Yes (PARAPLEGIA R/T C-SPINE INJURY) Hx Alcohol Use: No Hx Substance Use: No Hx Tobacco Use: No Smoking Status: Never smoker FmHx Family History: No coronary disease Physical Exam Vitals Vital Signs Date Time Temp Pulse Resp B/P Pulse Ox O2 Delivery O2 Flow Rate FiO2 10/20/16 04:50 117 22 98 40 10/20/16 04:39 98.4 116 25 114/93 98 BIPAP 10/20/16 04:33 98.4 118 24 104/58 94 Physical Exam Const: Well-developed, well-nourished Head: Atraumatic, normocephalic Eyes: Normal Conjunctiva, PERRLA, EOMI, normal sclera, no nystagmus ENT: Normal External Ears, Nose and Mouth, moist mucus membranes. Neck: Full range of motion., Trach in place and intact no meningismus, no lymphadenopathy. Resp: Clear to auscultation bilaterally, no wheezing, rhonchi, rales Cardio: Tachycardia with heart rate 114-120, no murmurs, S1 S2 present] Abd: Soft, non tender x 4, non distended. Normal bowel sounds, no guarding or rebound, no pulsitile abdominal masses or bruits, indwelling Morris with clear urine Skin: No petechiae or rashes, no ecchymosis , no maculopapular rash Back: No midline or flank tenderness Ext: No cyanosis, or edema, FROM x 0, contractures to extremities, vascularly intact x 4 Neur: Awake and alert, STR 0/5 x 4, sensation intact x 4 Psych: Normal Mood and Affect Result Diagram: 10/20/1644710/20/16447 Results 24 hrs Laboratory Tests Test 10/20/16 04:48 White Blood Count 6.510^3/ul Red Blood Count 2.8810^6/ul Hemoglobin 8.8g/dl Hematocrit 28.9% Mean Corpuscular Volume 100.3fl Mean Corpuscular Hemoglobin 30.6pg Mean Corpuscular Hemoglobin Concent 30.4g/dl Red Cell Distribution Width 14.2% Platelet Count 77234^3/UL Mean Platelet Volume 11.7fl Neutrophils % 80.4% Lymphocytes % 7.2% Monocytes % 8.0% Eosinophils % 3.5% Basophils % 0.3% Nucleated Red Blood Cells % 0.0/100WBC Neutrophils # 5.210^3/ul Lymphocytes # 0.510^3/ul Monocytes # 0.510^3/ul Eosinophils # 0.210^3/ul Basophils # 0.010^3/ul Nucleated Red Blood Cells # 0.010^3/ul Sodium Level 140mmol/L Potassium Level 6.1mmol/L Chloride Level 106mmol/L Carbon Dioxide Level 30mmol/L Anion Gap 10 Blood Urea Nitrogen 74mg/dl Creatinine 1.50mg/dl Glucose Level 86mg/dl Calcium Level 9.4mg/dl Current Medications Medications (Trade) Dose Ordered Sig/Dwain Route PRN Reason Start Time Stop Time Status Last Admin Dose Admin Sodium Chloride (NS) 1,000 ml @ 1,000 mls/hr Q1H STAT IV 10/20/16 04:44 10/20/16 05:43 DC 10/20/16 04:53 Hydromorphone HCl (Dilaudid) 1 mg ONCE STAT IV 10/20/16 04:44 10/20/16 04:45 DC 10/20/16 04:52 Ondansetron HCl (Zofran Inj) 4 mg ONCE STAT IV 10/20/16 04:44 10/20/16 04:45 DC 10/20/16 04:53 Procedures/MDM Patient's potassium summary elevated at 6.1. He was treated with high potassium cocktail including Kayexalate sodium bicarb D5W and insulin. Patient is receiving IV fluids. Also checking urinalysis. Departure Diagnosis: Primary Impression: Hyperkalemia Condition: Stable JENARO BROWN DO Oct 20, 2016 05:55
[2016-10-20 06:00] LABS: POTASSIUM 6.1 mmol/L (3.5-5.1)
[2016-10-20] MEDS ORDERED: DEXTROSE 50% 50 ML SYRINGE IV PRN (06:00)
[2016-10-20] MEDS ORDERED: NA BICARBONATE 8.4% 50 ML SYG IV STA (06:00)
[2016-10-20] MEDS ORDERED: INSULIN REGULAR, HUMAN 100 UNIT/1 ML 3ML VIAL IV STA (06:00)
[2016-10-20] MEDS ORDERED: NA POLYST SULFON 15 GM/60 ML BTL PO STA (06:00)
[2016-10-20] MEDS ORDERED: SOD CHLORIDE 0.9% 1,000 ML IV SCH (06:11)
[2016-10-20] MEDS ORDERED: ONDANSETRON 4 MG INJ IV PRN (06:30)
[2016-10-20] MEDS ORDERED: ACETAMINOPHEN 325 MG TAB PO PRN (06:30)
--- NOTE | 2016-10-20 08:24 | CONS ---
Date/Time of Note Date/Time of Note DATE: 10/20/16 TIME: 08:23 Assessment/Plan Assessment/Plan Additional Assessment/Plan 1. Acute kidney injury secondary to severe prerenal azotemia and possible acute tubular necrosis 2. Acute uremia with a BUN of 69, Cr 1.46.- slowly improving with D5W 3. Acute hyperkalemia 5. 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 6. History of neurogenic bladder with urinary retention, status post suprapubic catheter. 7. History of previous recurrent urinary tract infections. 8. [facility] director [facility]. 9. 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 10. Other medical history includes anxiety, depression, bipolar disorder, psychosis. 11. History of right nephrectomy with left renal nephrolithiasis and a left renal cyst measuring 5.3 cm in size. Plan: Pt refused Kayexalate in ED, BP stable repeat BMP has been ordered to [facility]hel [facility] on K- Follow up K is still high, he is ordered for another kayexalate 30gram PO x 1 Continue IVF as ordered NS at 100 cc/hr expecting renal function to improve with IV fluids BP stable Thanks for consultation,we will continue to follow up Consultation Date/Type/Reason Admit Date/Time 10/20/2016 Date of Consultation: Oct 20, 2016 Type of Consultation: NEPHROLOGY Reason for Consultation acute hyperkalemia, acute on chronic renal failure Referring Provider: JOSÉ ANTONIO MIRZA MD Hx of Present Illness 41-year-old male who is quadriplegic secondary to his C5-C6 injury during a wrestling accident at the age of 15. He was sent from [facility] for hyperkalemia. The patient had labs drawn yesterday which showed high potassium then repeated again which again showed high potassium. The patient says he has pain all over and has chronic pain. Other than that he has no symptoms. He says he has no cough no vomiting or diarrhea.He is noted to have acute kidney injury, Hyperkalemia, renal has been consulted for BELINDA. Subjective hx not possible: pt non-verbal Social History Smoking Status: Never smoker Exam/Review of Systems Vital Signs Vitals Vital Signs Date Time Temp Pulse Resp B/P Pulse Ox O2 Delivery O2 Flow Rate FiO2 10/20/16 04:50 117 22 98 40 10/20/16 04:39 98.4 114/93 BIPAP Exam Constitutional: alert Psych: no complaints Head: normocephalic Eyes: nl conjunctiva ENMT: nl external ears & nose, other (+ tracheostomy on ventilator ) Neck: supple Respiratory: clear to auscultation, crackles/rales Cardiovascular: nl pulses, regular rate and rhythm Gastrointestinal: non-tender, other (+ G tube placement ), soft Musculoskeletal: nl extremities to inspection Neurological: other (alert, awake, uncooperativ for exam ) Results Result Diagram: 10/20/168 10/20/168 Results 24 hrs Laboratory Tests Test 10/20/16 04:48 White Blood Count 6.5 # Red Blood Count 2.88 L Hemoglobin 8.8 L Hematocrit 28.9 L Mean Corpuscular Volume 100.3 Mean Corpuscular Hemoglobin 30.6 Mean Corpuscular Hemoglobin Concent 30.4 L Red Cell Distribution Width 14.2 Platelet Count 147 Mean Platelet Volume 11.7 H Neutrophils % 80.4 H Lymphocytes % 7.2 L Monocytes % 8.0 Eosinophils % 3.5 Basophils % 0.3 Nucleated Red Blood Cells % 0.0 Neutrophils # 5.2 Lymphocytes # 0.5 L Monocytes # 0.5 Eosinophils # 0.2 Basophils # 0.0 Nucleated Red Blood Cells # 0.0 Sodium Level 140 Potassium Level 6.1 *H Chloride Level 106 Carbon Dioxide Level 30 Anion Gap 10 Blood Urea Nitrogen 74 H Creatinine 1.50 H Glucose Level 86 Calcium Level 9.4 Medications Medications Current Medications Dextrose ONCE PRN IV POC BLOOD GLUCOSE <250 MG/DL; Start 10/20/16 at 06:00 Sodium Chloride (NS) 1,000 ml @ 80 mls/hr [id number] IV ; Start 10/20/16 at 06:11 ; Stop 10/20/16 at 18:40 TIARA CISNEROS MD Oct 20, 2016 08:24
[2016-10-20] MEDS ORDERED: FE F1TAB7 GTB (08:57)
[2016-10-20] MEDS: HYDROmorphONE 1 MG/ML SYG IV PRN ×4 (10:23→22:29)
[2016-10-20] MEDS ORDERED: NA POLYST SULFON 15 GM/60 ML BTL GTB ONE (10:30)
[2016-10-20 10:52] LABS: CALCIUM 9.2 mg/dl (8.4-10.2); CREATININE 1.46 mg/dl (0.61-1.24)
[2016-10-20 11:02] LABS: POTASSIUM 6.3 mmol/L (3.5-5.1)
--- NOTE | 2016-10-20 11:28 | CONS ---
Date/Time of Note Date/Time of Note DATE: 10/20/16 TIME: 11:24 Assessment/Plan Assessment/Plan Additional Assessment/Plan Assessment and recommendations; 1. Patient with history of chronic respiratory failure admitted for hyperkalemia which is mild. 2. Chronic pain syndrome. 3. History of C-spine injury resulting in chronic respiratory failure patient remains ventilator dependent dependent. Administer Kayexalate 60 g 1. Obtain follow-up serum potassium level. Ventilator settings have been adjusted. Patient has been switched over to SIMV with a rate of 14, pressure support of 14, PEEP of 5, 40% FiO2. Demerol 1 mg every 4 hours IV push as needed pain. Consultation Date/Type/Reason Admit Date/Time 10/20/2016 Date of Consultation: Oct 20, 2016 Type of Consultation: Pulmonary Reason for Consultation Pulmonary consultation requested for evaluation of chronic respiratory failure. History of presenting any; patient is a 41-year-old white male who was transferred to ER from snf with high potassium level. Patient had potassium level done yesterday which showed high potassium it was treated and a repeat study was done this morning which again showed high potassium patient subsequently has been admitted to telemetry unit. By the time I saw the patient patient is completely awake and alert denies any shortness of breath but does complain of chronic pain and asking for pain medications. He denies any nausea vomiting diarrhea. Past medical history; 1. 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 Patient however able to move both upper extremities to some extent. 2. History of anemia. 3. History of recurrent admissions due to sepsis. Medications; reviewed. Family history; noncontributory. Social history; noncontributory. Review of systems; denies any headache, visual changes. Denies any cough, shortness of breath. Any chest pain. Any abdominal pain. Any nausea vomiting. Denies any edema. Denies any diarrhea or constipation. General exam; young male, awake and alert. Currently in no distress. Occupation history; patient is disabled. Past Surgical History Past Surgical Hx: other Social History Smoking Status: Never smoker Exam/Review of Systems Vital Signs Vitals Vital Signs Date Time Temp Pulse Resp B/P Pulse Ox O2 Delivery O2 Flow Rate FiO2 10/20/16 10:04 124 10/20/16 04:50 22 98 40 10/20/16 04:39 98.4 114/93 BIPAP Exam HEENT exam; supple neck, no JVD. No lymphadenopathy. Midline trachea. No thyromegaly. Tracheostomy in place. Patient has a multiple carious teeth. Pupils are midsize and reactive to light. Chest exam; clear to auscultation. S1-S2 audible, no murmurs. Regular rhythm. Abdomen exam; soft, nontender. No organomegaly. Bowel sounds audible. G-tube in place. Extremity exam; no peripheral edema. VERTICAL BORER exam; cranial nerves are grossly intact patient is able to move upper extremities to some extent. There is severe muscular wasting involving all 4 extremities. Patient has stable paraplegia. Results Result Diagram: 10/20/16 0448 10/20/16 1002 Results 24 hrs Laboratory Tests Test 10/20/16 04:48 10/20/16 10:02 White Blood Count 6.5 # Red Blood Count 2.88 L Hemoglobin 8.8 L Hematocrit 28.9 L Mean Corpuscular Volume 100.3 Mean Corpuscular Hemoglobin 30.6 Mean Corpuscular Hemoglobin Concent 30.4 L Red Cell Distribution Width 14.2 Platelet Count 147 Mean Platelet Volume 11.7 H Neutrophils % 80.4 H Lymphocytes % 7.2 L Monocytes % 8.0 Eosinophils % 3.5 Basophils % 0.3 Nucleated Red Blood Cells % 0.0 Neutrophils # 5.2 Lymphocytes # 0.5 L Monocytes # 0.5 Eosinophils # 0.2 Basophils # 0.0 Nucleated Red Blood Cells # 0.0 Sodium Level 140 143 Potassium Level 6.1 *H 6.3 *H Chloride Level 106 109 Carbon Dioxide Level 30 28 Anion Gap 10 12 Blood Urea Nitrogen 74 H 69 H Creatinine 1.50 H 1.46 H Glucose Level 86 82 Calcium Level 9.4 9.2 Medications Medications Current Medications Dextrose ONCE PRN IV POC BLOOD GLUCOSE <250 MG/DL; Start 10/20/16 at 06:00 Sodium Chloride (NS) 1,000 ml @ 80 mls/hr [id number] IV ; Start 10/20/16 at 06:11 ; Stop 10/20/16 at 18:40 Hydromorphone HCl (Dilaudid) 1 mg Q4H PRN IV PAIN Last administered on t 10:23; Admin Dose 1 MG; Start 10/20/16 at 10:00 [place] 14, 2017 11:28
--- NOTE | 2016-10-20 13:10 | HP ---
Date/Time of Note Date/Time of Note DATE: 10/20/16 TIME: 11:31 Assessment/Plan VTE Prophylaxis VTE Prophylaxis Intervention: other Lines/Catheters IV Catheter Type (from Nrs): PICC Line Central line still needed: Yes Assessment/Plan Assessment/Plan Hyperkalemia-potassium 6.3, patient refused Kayexalate, patient stated that he has 3 BMs already - Admit as i npatient -Nephrology follows-Dr. Paul Barker -We will do a BMP follow-up results -Acute renal failure -Nephrology follows -Chronic TVRF -Pulmonary consult, Dr. Leonard was notified -Aspiration precautions -SP post suprapubic catheter-infected -Allergy consult, Dr. Harley notified -ID consult, Dr. Maciel's IMPORT/EXPORT SPECIALIST near notified -Tachycardia, history of intermittent Mobitz 1, history of preserved EF -Cardiology consult, Dr. John bolanos notified - Anemia - transfuse PRN -[id number] is able to take p.o. -Aspiration precautions PLAN: - Admit as inpatient - Admission orders done - will do swallow eval as patient was eating at SNF Plan of care dw Dr Warner/staff HPI/ROS Admit Date/Time Admit Date/Time 10/20/2016 Hx of Present Illness HPI This is a 41-year-old male, trach to vent dependentrach to vent dependent, a SNF resident who is quadriplegic secondary to his C5-C6 injury during a wrestling accident at the age of 15. Patient is admitted with high potassium then repeated again which again showed high potassium. also c/o shortness of breath, pain all over and has chronic pain. Denies any fever, chill cough, vomiting or diarrhea. Patient is admitted under DR Barreto for further evaluation and treatment. ROS All systems reviewed and are negative except as per history of present illness. Medications ROS Respiratory: shortness of breath Cardiovascular: no complaints Gastrointestinal: no complaints Musculoskeletal: no complaints PMH/Family/Social Past Medical History Medical and Surgical Hx: pt denies Medical Hx, pt denies Surgical Hx History of Surgery: Yes (Cervical spinal surgery ([id number])) Anesthesia Reaction: No Hx Neurological Disorder: Yes (parapalegic (1990)) Hx Respiratory Disorders: Yes (chronic trach to vent (2014)) Hx Cardiac Disorders: No Hx Psychiatric Problems: Yes (bipolar, anxiety, depression ) Hx Miscellaneous Medical Probl: Yes (PARAPLEGIA R/T C-SPINE INJURY) Hx Alcohol Use: No Hx Substance Use: No Hx Tobacco Use: No Smoking Status: Never smoker FmHx Family History: No coronary disease Medical History: other ( chronic indwelling Morris) Past Surgical History Past Surgical Hx: other Social History Smoking Status: Never smoker Exam/Review of Systems Vital Signs Vitals Vital Signs Date Time Temp Pulse Resp B/P Pulse Ox O2 Delivery O2 Flow Rate FiO2 10/20/16 10:04 124 10/20/16 04:50 22 98 40 10/20/16 04:39 98.4 114/93 BIPAP Exam Constitutional: alert, frail Respiratory: diminished breath sounds, other (trach intact) Cardiovascular: nl pulses, regular rate and rhythm Gastrointestinal: non-tender, other (gt intact), soft Musculoskeletal: muscle weakness Extremities: normal pulses Neurological: other (alert, reponsive, follows simle commands) Labs Result Diagram: 10/20/16 0448 10/20/16 1002 Medications Medications Current Medications Dextrose ONCE PRN IV POC BLOOD GLUCOSE <250 MG/DL; Start 10/20/16 at 06:00 Sodium Chloride (NS) 1,000 ml @ 80 mls/hr [id number] IV ; Start 10/20/16 at 06:11 ; Stop 10/20/16 at 18:40 Hydromorphone HCl (Dilaudid) 1 mg Q4H PRN IV PAIN Last administered on t 10:23; Admin Dose 1 MG; Start 10/20/16 at 10:00 NAE VELAZCO Oct 20, 2016 11:41
[2016-10-20] MEDS: POLYETHYLENE GLYCOL 17 GM PACKET GTB SCH (13:30)
[2016-10-20] MEDS ORDERED: ALBUTEROL 0.083% (NEB) 2.5 MG/3 ML AMP NEB PRN (13:30)
[2016-10-20] MEDS ORDERED: BISACODYL 10 MG SUPP PR PRN (13:30)
[2016-10-20] MEDS ORDERED: MAGNESIUM HYDROXIDE 30ML CUP GTB PRN (13:30)
[2016-10-20] MEDS ORDERED: GABAPENTIN (50 MG/ML PO SYG) GTB SCH ×3 (14:00→21:00)
[2016-10-20] MEDS: ASCORBIC ACID 500 MG TAB GTB SCH (14:24)
[2016-10-20] MEDS: FERROUS SULFATE 60 MG/ML 5ML CUP GTB SCH (14:24)
--- NOTE | 2016-10-20 14:41 | CONS ---
Date/Time of Note Date/Time of Note DATE: 10/20/16 TIME: 14:37 Assessment/Plan Assessment/Plan Additional Assessment/Plan Sinus tachycardia Acute kidney injury with hyperkalemia Respiratory Failure Preserved EF on echocardiogram March 02, 2016 History of intermittent Mobitz I Chronic pain syndrome -Patient's tachycardia likely multifactorial including acute kidney injury with hypovolemia and pain. Would obtain ECG. Continue telemetry monitoring. IV fluids as per our nephrology colleagues. No need for AV doron blocking agents at the current time given patient's sinus tachycardia secondary to his current condition. Consultation Date/Type/Reason Admit Date/Time 10/20/2016 Type of Consultation: cv Reason for Consultation Tachycardia Hx of Present Illness This is a 41-year-old male with history of chronic respiratory failure who presents secondary to abnormal laboratory studies. As per medical records, patient with potassium above 6.5 and sent from nursing facility to the emergency room. Does complain of intermittent shortness of breath but this is improved today. He does complain of pain everywhere. He denies dizziness, palpitations, chest pain, lightheadedness. Patient with tachycardia noted on telemetry and for this reason cardiology consultation was requested. 12 point review of systems was performed with all pertinent positives and negatives mentioned above and all else is negative Cardiovascular: no complaints Gastrointestinal: no complaints Past Medical History Chronic respiratory failure History of spinal injury Intermittent Mobitz type I Past Surgical History Past Surgical Hx: other (Including but not limited to PEG, tracheostomy) Family History Significant Family History: no pertinent family hx Social History Alcohol Use: none Smoking Status: Never smoker Other Social History From shelter facility Exam/Review of Systems Vital Signs Vitals Vital Signs Date Time Temp Pulse Resp B/P Pulse Ox O2 Delivery O2 Flow Rate FiO2 10/20/16 13:00 128 33 97 50 10/20/16 11:47 98.1 95/51 10/20/16 10:30 Bag Valve Mask Exam No apparent distress Constitutional: alert, frail, oriented Head: normocephalic Neck: other (Tracheostomy) Respiratory: other (Coarse breath sounds bilaterally, no wheezing) Cardiovascular: other (S1-S2 heard), regular rate and rhythm (Tachycardic) Gastrointestinal: bowel sounds, non-tender, other (No guarding), soft Extremities: other (No edema) Results Result Diagram: 10/20/16 0448 10/20/16 1002 Results 24 hrs Laboratory Tests Test 10/20/16 04:48 10/20/16 10:02 White Blood Count 6.5 # Red Blood Count 2.88 L Hemoglobin 8.8 L Hematocrit 28.9 L Mean Corpuscular Volume 100.3 Mean Corpuscular Hemoglobin 30.6 Mean Corpuscular Hemoglobin Concent 30.4 L Red Cell Distribution Width 14.2 Platelet Count 147 Mean Platelet Volume 11.7 H Neutrophils % 80.4 H Lymphocytes % 7.2 L Monocytes % 8.0 Eosinophils % 3.5 Basophils % 0.3 Nucleated Red Blood Cells % 0.0 Neutrophils # 5.2 Lymphocytes # 0.5 L Monocytes # 0.5 Eosinophils # 0.2 Basophils # 0.0 Nucleated Red Blood Cells # 0.0 Sodium Level 140 143 Potassium Level 6.1 *H 6.3 *H Chloride Level 106 109 Carbon Dioxide Level 30 28 Anion Gap 10 12 Blood Urea Nitrogen 74 H 69 H Creatinine 1.50 H 1.46 H Glucose Level 86 82 Calcium Level 9.4 9.2 Medications Medications Current Medications Dextrose ONCE PRN IV POC BLOOD GLUCOSE <250 MG/DL; Start 10/20/16 at 06:00 Sodium Chloride (NS) 1,000 ml @ 80 mls/hr [id number] IV Last administered on 10/20 10:30; Admin Dose 80 MLS/HR; Start 10/20/16 at 06:11; Stop 10/20/16 at 18: 40 Hydromorphone HCl (Dilaudid) 1 mg Q4H PRN IV PAIN Last administered on 14:25; Admin Dose 1 MG; Start 10/20/16 at 10:00 Acetaminophen (Tylenol Liquid) 650 mg Q4H PRN GTB MILD PAIN LEVEL 1-3; Start at 13:30 Ascorbic Acid (Vitamin C) 500 mg DAILY GTB Last administered on 10/20/16 14:24 ; Admin Dose 500 MG; Start 10/20/16 at 14:00 Bisacodyl (Dulcolax Supp) 10 mg Q24H PRN [place] CONSTIPATION; Start 10/20/16 at 13: 30 Citric Acid/ Sodium Citrate (Bicitra Liquid (Ped)) 10 meq TID GTB ; Start at 21:00 Docusate Sodium (Colace Liquid Cup) 200 mg QHS GTB ; Start 10/20/16 at 21:00 Enoxaparin Sodium (Lovenox) 30 mg DAILY SC ; Start 10/21/16 at 09:00 Ferrous Sulfate (Ferrous Sulfate) 330 mg DAILY GTB ; Start 10/21/16 at 09:00 Magnesium Hydroxide (Milk Of Mag) 30 ml DAILY PRN GTB CONSTIPATION; Start 10/20 at 13:30 Lansoprazole (Prevacid) 30 mg DAILY@06 GTB ; Start 10/21/16 at 06:00 Polyethylene Glycol (Miralax) 17 gm DAILY GTB ; Start 10/20/16 at 13:30 Zinc Sulfate (Zinc Sulfate) 220 mg DAILY GTB ; Start 10/21/16 at 09:00 Multivit/Ca Carb/ B Cmplx/FA/Prenat ([place]) 1 tab DAILY GTB ; Start at 09:00 Acetaminophen/ Hydrocodone Bitart ([place] (5/325)) 1 tab Q6 PRN GTB PAIN LEVEL 1 -5; Start 10/20/16 at 14:00 Gabapentin (Neurontin Liquid) 100 mg ONCE GTB ; Start 10/20/16 at 14:00; Stop at 18:00 Gabapentin (Neurontin Liquid) 100 mg TID GTB ; Start 10/20/16 at 21:00 Risperidone (Risperdal) 1 mg QHS GTB ; Start 10/20/16 at 21:00 Ferrous Sulfate (Feosol Liquid Cup) 300 mg DAILY GTB Last administered on t 14:24; Admin Dose 300 MG; Start 10/20/16 at 14:07 Procedures Procedures Telemetry reviewed with sinus tachycardia in the 120s Deandre Chavez DO Oct 20, 2016 14:41
[2016-10-20] MEDS ORDERED: SOD CHLORIDE 0.9% 1,000 ML IV ONE (16:00)
--- NOTE | 2016-10-20 16:58 | RADRPT ---
Echocardiogram Report Patient Name: ANGIE COPPOLA Gender: Male Date: 1975 Study Date: 20-Oct-2016 Securities Attorney: Piotr Farnsworth [facility] Location: 530 Ref. Physician: NAE VELAZCO Quality: Adequate Procedures: Transthoracic echocardiogram with complete 2D, M-Mode, and doppler examination. Indications: Tachycardia, Sepsis. 2D/M Mode Doppler Measurement Value Normal Ranges Measurement Value Normal Ranges LVIDd 2D 4.7 3.5 - 5.6 cm AV Peak Markus 1.4 m/sec LVIDs 2D 3.1 2.1 - 4.1 cm AV Peak PG 7.0 mmHg FS 2D 32.5 % LVOT Peak Markus 0.9 m/sec LVPWd 2D 1.3 0.6 - 1.1 cm LVOT Peak PG 3.0 mmHg IVSd 2D 1.3 0.6 - 1.1 cm MV E Peak Markus 1.0 m/sec IVS/LVPW 2D 1.0 AoR Diam 2D 2.9 2.0 - 3.7 cm LA/Ao 2D 1 0 - 1 EDV 2D 101.0 cm3 ESV 2D 31.0 cm3 LA Dimen 2D 2.9 2.3 - 4.0 cm Findings Left Ventricle: Overall, normal left ventricular systolic function. Not all segments visualized. Normal left ventricular cavity size. Mild concentric left ventricular hypertrophy. Ejection fraction is visually estimated at 70 %. Abnormal Diastolic Function. Right Ventricle: Normal right ventricular size. Normal right ventricular systolic function. Left Atrium: The left atrium is normal in size. Right Atrium: The right atrium is normal in size. Mitral Valve: Mild mitral leaflet calcification. Mild mitral annular calcification. Trace mitral regurgitation. Aortic Valve: Aortic sclerosis without stenosis. No aortic regurgitation. Tricuspid Valve: Normal appearance and function of the tricuspid valve with trace physiologic regurgitation. Pulmonic Valve: Pulmonic valve not well visualized. There is trace pulmonic regurgitation. Pericardium: Normal pericardium with no significant pericardial effusion. Aorta: Normal aortic root. IVC: Normal size and normal respiratory collapse consistent with normal right atrial pressure. Conclusions 1.Overall, normal left ventricular systolic function. Not all segments visualized. Normal left ventricular cavity size. Mild concentric left ventricular hypertrophy. Ejection fraction is visually estimated at 70 %. Abnormal Diastolic Function. 2.Normal right ventricular size. Normal right ventricular systolic function. 3.The left atrium is normal in size. 4.The right atrium is normal in size. 5.No significant valvular stenosis or regurgitation seen. 6.Normal pericardium with no significant pericardial effusion. Electronically Signed By: Deandre Chavez 20-Oct-2016 16:57:06 -0700 Patient Name: ANGIE COPPOLA Study Date: 20-Oct-2016 [id number]
[2016-10-20] MEDS: GABAPENTIN (50 MG/ML PO SYG) GTB SCH (17:00)
[2016-10-20] MEDS ORDERED: VANCOMYCIN IV PER PHARMACY XX SCH (17:00)
[2016-10-20] MEDS: SOD CHLORIDE 0.9% 1,000 ML IV SCH (17:04)
[2016-10-20 17:05] LABS: CALCIUM 8.6 mg/dl (8.4-10.2); CREATININE 1.55 mg/dl (0.61-1.24); POTASSIUM 5.7 mmol/L (3.5-5.1)
--- NOTE | 2016-10-20 17:39 | CONS ---
DATE OF ADMISSION: 10/20/2016 DATE OF CONSULTATION: 10/20/2016 REQUESTING PHYSICIAN: Hitesh Barreto MD Thank you for this consultation. HISTORY OF PRESENT ILLNESS: This is a chronically ill, debilitated, cachectic, middle-aged paraplegic man from [facility] facility. The patient is well known to our service from multiple previous admissions and history of recurrent urinary tract infections, with septic shock. Patient has a history of paraplegia, neurogenic bladder, chronic suprapubic catheter, chronic respiratory failure, status post trach, seizure disorder, history of acute kidney injury with uremia, GERD, anxiety, history of right nephrectomy, with left renal nephrolithiasis and a left renal cyst measuring 5.3 cm in size. Acutely, the patient was admitted with hyperkalemia, tachycardia and leaking urine around suprapubic catheter with foul odor. Patient also had a rash on his lower extremity suspicious for scabies. VITAL SIGNS: He came with a temperature of 98.4, pulse 118, respirations 24, blood pressure 104/58, saturation 94 percent on vent. LABORATORY AND DIAGNOSTIC DATA: WBC 6.5, H and H 8.8 and 28.9, platelets 187, neutrophils 80.4, no bands. Potassium 6.1, sodium 140, BUN 74, creatinine 1.50. No diagnostics or cultures are in the computer. Patient is being seen by Dr. Crowell in Pulmonary consultation. He also has seen Cardiology. He is currently off antibiotics. SOCIAL HISTORY: Patient came from the facility. REVIEW OF SYSTEMS: As per History of Present Illness. PHYSICAL EXAMINATION: GENERAL: This is a chronically ill-appearing, wasted, cachectic, middle-aged white man, who is awake, crying and complaining of pain. Patient is in no distress. HEENT: Head atraumatic, normocephalic. Sclerae anicteric. Buccal mucosa dry. NECK: Supple. CHEST: Rise symmetrical. Breath sounds diminished at the bases. HEART: S1, S2. Tachycardic. ABDOMEN: Soft, bowel sounds present. Suprapubic catheter, with some erythema. EXTREMITIES: Spastic, contractured, without cyanosis. DIAGNOSTIC IMPRESSION: This is a 41-year-old man admitted with hyperkalemia, tachycardia, [id number] renal failure. Patient also with a maculopapular rash, possible scabies versus heat rash. He is currently off antibiotics. Followed by multiple consultants. We are going to order cultures. We will order skin scraping for scabies. Patient already received Kayexalate dose. We will keep him off antibiotics once we get cultures back, as patient is currently afebrile, without leukocytosis. Consider urology evaluation. Discussed with Dr. Matson, who is covering for . Dictated By: Celso Mancilla NP /sera/svitlana /Document#: [id number] MTDD
[2016-10-20] MEDS ORDERED: VANCOMYCIN 1.5 GM in SOD CHLORIDE 0.9% 250 ML IVPB SCH (18:30)
--- NOTE | 2016-10-20 19:53 | CONS ---
Date/Time of Note Date/Time of Note DATE: 10/20/16 TIME: 19:42 Assessment/Plan Assessment/Plan Chief Complaint/Hosp Course This is a 40-year-old male who was admitted to the hospital from a nursing facility because of hypoxemia. 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 Patient has a tracheostomy and also has a suprapubic tube. The suprapubic tube has not been changed in a good time. Therefore, a urological consultation was requested. The patient does have presently sepsis secondary to urinary tract infection, hypoxia and he improved on that. He has a chronic kidney disease with elevated BUN and creatinine, chronic paraplegia from cervical spine injury and chronic tracheostomy secondary to respiratory failure. The patient is also status post a right nephrectomy. At the present the suprapubic tube is draining well. There was a report of a CT scan in February or April 2015 but its that the patient does have a JJ stent the left side. I will do a KUB on him to see if he still have the JJ stent and if he does this may need to be removed and may be replaced. Patient does have multiple left renal stones and hopefully the KUB could visualize disease so we could decide if any treatment is to be provided Problems: Consultation Date/Type/Reason Admit Date/Time 10/20/2016 Date of Consultation: Oct 20, 2016 Type of Consultation: Urology Reason for Consultation The pubic tube that is not draining well and has purulent material in it Referring Provider: JOSÉ ANTONIO MIRZA MD Hx of Present Illness This is a 41-year-old male who was admitted to the hospital from a nursing facility because of hyperkalemia. 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 Patient has a tracheostomy and also has a suprapubic tube. The suprapubic tube was not draining well and had purulent material in it. Therefore, a urological consultation was requested. The patient has had sepsis secondary to urinary tract infection,. He has a chronic kidney disease with elevated BUN and creatinine, chronic paraplegia from cervical spine injury and chronic tracheostomy secondary to respiratory failure. The patient is also status post a right nephrectomy. Constitutional: no complaints Eyes: no complaints ENT: no complaints, other (Tracheostomy) Respiratory: other (Tracheostomy) Cardiovascular: no complaints Gastrointestinal: no complaints Genitourinary: other (Suprapubic tube) Musculoskeletal: other (Lower extremities contractions), restricted range of motion Skin: rash Neurologic: other (Paraplegia) Psychological: no complaints Past Medical History Medical History: renal disease, urinary tract infection Past Surgical History Past Surgical Hx: other (Right nephrectomy, tracheostomy, suprapubic tube) Family History Significant Family History: no pertinent family hx Social History Alcohol Use: none Smoking Status: Never smoker Exam/Review of Systems Vital Signs Vitals Vital Signs Date Time Temp Pulse Resp B/P Pulse Ox O2 Delivery O2 Flow Rate FiO2 10/20/16 18:00 101.0 121 26 104/62 99 Mechanical Ventilator 10/20/16 17:15 50 Exam Constitutional: alert, oriented Psych: no complaints Head: normocephalic Eyes: nl conjunctiva ENMT: other (Tracheostomy tube and on a ventilator) Cardiovascular: No edema Gastrointestinal: soft Genitourinary - Male: other (Suprapubic tube) Extremities: other (Contractures of the lower extremities) Neurological: other (Paraplegic) Results Result Diagram: 10/20/16 0448 10/20/16 1606 Results 24 hrs Laboratory Tests Test 10/20/16 04:48 10/20/16 10:02 10/20/16 16:06 10/20/16 16:08 White Blood Count 6.5 # Red Blood Count 2.88 L Hemoglobin 8.8 L Hematocrit 28.9 L Mean Corpuscular Volume 100.3 Mean Corpuscular Hemoglobin 30.6 Mean Corpuscular Hemoglobin Concent 30.4 L Red Cell Distribution Width 14.2 Platelet Count 147 Mean Platelet Volume 11.7 H Neutrophils % 80.4 H Lymphocytes % 7.2 L Monocytes % 8.0 Eosinophils % 3.5 Basophils % 0.3 Nucleated Red Blood Cells % 0.0 Neutrophils # 5.2 Lymphocytes # 0.5 L Monocytes # 0.5 Eosinophils # 0.2 Basophils # 0.0 Nucleated Red Blood Cells # 0.0 Sodium Level 140 143 146 H Potassium Level 6.1 *H 6.3 *H 5.7 H Chloride Level 106 109 112 H Carbon Dioxide Level 30 28 28 Anion Gap 10 12 12 Blood Urea Nitrogen 74 H 69 H 64 H Creatinine 1.50 H 1.46 H 1.55 H Glucose Level 86 82 109 Calcium Level 9.4 9.2 8.6 Lactic Acid Level 0.8 Medications Medications Current Medications Dextrose (D50w Syringe) ONCE PRN IV POC BLOOD GLUCOSE <250 MG/DL; Start at 06:00 Hydromorphone HCl (Dilaudid) 1 mg Q4H PRN IV PAIN Last administered on 18:28; Admin Dose 1 MG; Start 10/20/16 at 10:00 Acetaminophen (Tylenol Liquid) 650 mg Q4H PRN GTB MILD PAIN LEVEL 1-3; Start at 13:30 Ascorbic Acid (Vitamin C) 500 mg DAILY GTB Last administered on 10/20/16 14:24 ; Admin Dose 500 MG; Start 10/20/16 at 14:00 Bisacodyl (Dulcolax Supp) 10 mg Q24H PRN [place] CONSTIPATION; Start 10/20/16 at 13: 30 Citric Acid/ Sodium Citrate (Bicitra Liquid (Ped)) 10 meq TID GTB ; Start at 21:00 Docusate Sodium (Colace Liquid Cup) 200 mg QHS GTB ; Start 10/20/16 at 21:00 Enoxaparin Sodium (Lovenox) 30 mg DAILY SC ; Start 10/21/16 at 09:00 Ferrous Sulfate (Ferrous Sulfate) 330 mg DAILY GTB ; Start 10/21/16 at 09:00 Magnesium Hydroxide (Milk Of Mag) 30 ml DAILY PRN GTB CONSTIPATION; Start 10/20 at 13:30 Lansoprazole (Prevacid) 30 mg DAILY@06 GTB ; Start 10/21/16 at 06:00 Polyethylene Glycol (Miralax) 17 gm DAILY GTB ; Start 10/20/16 at 13:30 Zinc Sulfate (Zinc Sulfate) 220 mg DAILY GTB ; Start 10/21/16 at 09:00 Multivit/Ca Carb/ B Cmplx/FA/Prenat (Lilibeth-Linn) 1 tab DAILY GTB ; Start at 09:00 Acetaminophen/ Hydrocodone Bitart ([place] (5/325)) 1 tab Q6 PRN GTB PAIN LEVEL 1 -5; Start 10/20/16 at 14:00 Gabapentin (Neurontin Liquid) 100 mg TID GTB Last administered on 10/20/16 17: 00; Admin Dose 100 MG; Start 10/20/16 at 21:00 Risperidone (Risperdal) 1 mg QHS GTB ; Start 10/20/16 at 21:00 Ferrous Sulfate 300 mg 300 mg DAILY GTB Last administered on 10/20/16 14:24; Admin Dose 300 MG; Start 10/20/16 at 14:07 Sodium Chloride 1,000 ml @ 100 mls/hr Q10H IV Last administered on 10/20/16 17:04; Admin Dose 100 MLS/HR; Start 10/20/16 at 16:00 Meropenem/Sodium Chloride 50 ml @ 100 mls/hr Q12 IVPB ; Start 10/20/16 at 21:00 Vancomycin HCl 1.5 gm/Sodium Chloride 250 ml @ 83.333 mls/ hr Q24H IVPB Last administered on 10/20/16 18:29; Admin Dose 83.333 MLS/HR; Start 10/20/16 at 18: 30; Stop 10/20/16 at 23:00 Vancomycin HCl/ Sodium Chloride (Vancocin/NS) 250 ml @ 83.333 mls/ hr Q48H IVPB ; Start 10/22/16 at 20:00 BHARGAV JIANG MD Oct 20, 2016 19:52
[2016-10-20] MEDS ORDERED: PENDING SANTYL ORDER FOR WOUND CARE XX PRN (20:00)
[2016-10-20] MEDS ORDERED: RISPERIDONE (1 MG/ML PO SYG) GTB SCH (21:00)
[2016-10-20] MEDS ORDERED: NORepinephrine 8MG/250 ML (PMX 250 ML IV SCH (21:00)
[2016-10-20] MEDS: MEROPENEM 500MG/50 ML (PMX) 50 ML IVPB SCH (22:29)
[2016-10-20] MEDS: DOCUSATE SODIUM 10 MG/ML (10ML CUP) GTB SCH (22:30)
[2016-10-20] MEDS: RISPERIDONE 1 MG TAB GTB SCH (22:30)
[2016-10-20] MEDS: ZOLPIDEM 5 MG TAB PO PRN (22:32)
[2016-10-20] MEDS: CITRIC ACID/NA CIT (1 MEQ/ML POSYG) GTB SCH (23:21)
--- NOTE | 2016-10-20 23:29 | RADRPT ---
PROCEDURE: XR Abdomen. CLINICAL INDICATION: 41 years of age, male. Evaluate left kidney stones. TECHNIQUE: Supine AP views of the abdomen. COMPARISON: Abdominal ultrasound May 19, 2016 FINDINGS: There is a double-J left ureteral stent that appears in good position. Evaluation for calculi is somewhat limited due to gas and stool in the colon. There are calcificatio ns projected over the left kidney that may represent nonobstructing calculi although stool could kellen ear similar. The largest is over the lower pole and measures 0.6 cm. No calculi are identified along the course of the ureteral stent. Moderate colonic stool. Bowel gas pattern is nonobstructive. No extraluminal gas collections are gayathri ntified. Curvature of the thoracic spine convex right. Bones are osteopenic. IMPRESSION: Double-J left ureteral stent.. Possible left renal calculi. Evaluation is limited due to stool in overlying colon and fecal materia l could appear similar. Moderate colonic stool suggests constipation. RPTAT: HCTS Physician Monica Date Time Electronically viewed and signed by Rowena Duke Physician on 10/20/2016 23:29 /
[2016-10-21] VITALS (57 sets, daily range): BP systolic 68–139; BP diastolic 39–98; PULSE 102–131; RESP 15–38; Ht 170.2 cm; Wt 62.5 kg
[2016-10-21] MEDS: HYDROmorphONE 1 MG/ML SYG IV PRN ×5 (02:12→21:11)
[2016-10-21] MEDS: SOD CHLORIDE 0.9% 1,000 ML IV SCH (04:23)
[2016-10-21 04:59] LABS: ABNORMAL IP MESSAGE 1; BASOPHILS % 0.2 % (0.0-2.0); EOSINOPHILS # 0.1 10^3/ul (0.0-0.5); EOSINOPHILS % 1.9 % (0.0-7.0); HEMOGLOBIN 7.5 g/dl (14.0-18.0); LYMPHOCYTES # 0.3 10^3/ul (0.8-2.9); LYMPHOCYTES % 6.7 % (15.0-51.0); MEAN CORPUSCULAR HGB CONC 28.8 g/dl (32.0-37.0); MEAN PLATELET VOLUME 11.4 fl (7.4-10.4); MONOCYTE # 0.4 10^3/ul (0.3-0.9); MONOCYTES % 8.8 % (0.0-11.0); NEUTROPHIL # 3.8 10^3/ul (1.6-7.5); PLATELET COUNT 111 10^3/UL (140-415); POSITIVE DIFF @See below; RED CELL DISTRIBUTION WIDTH 14.6 % (11.5-14.5); WHITE BLOOD COUNT 4.7 10^3/ul (4.8-10.8)
[2016-10-21 05:24] LABS: CALCIUM 8.5 mg/dl (8.4-10.2); CREATININE 1.43 mg/dl (0.61-1.24); POTASSIUM 4.8 mmol/L (3.5-5.1)
[2016-10-21] MEDS: LANSOPRAZOLE 30 MG CAP GTB SCH (06:16)
[2016-10-21] MEDS ORDERED: SOD CHLORIDE 0.9% 250 ML IV* ONE (08:33)
[2016-10-21] MEDS ORDERED: ENOXAPARIN 30 MG/0.3 ML SYG SC SCH (09:00)
[2016-10-21] MEDS ORDERED: FERROUS SULFATE 220 MG/5 ML ML GTB SCH (09:00)
[2016-10-21] MEDS: CITRIC ACID/NA CIT (1 MEQ/ML POSYG) GTB SCH ×3 (09:38→21:10)
[2016-10-21] MEDS: FERROUS SULFATE 60 MG/ML 5ML CUP GTB SCH (09:38)
[2016-10-21] MEDS: MULTIVIT/CA CARB/B CMPLX/FA TAB GTB SCH (09:39)
[2016-10-21] MEDS: ASCORBIC ACID 500 MG TAB GTB SCH (09:39)
[2016-10-21] MEDS: POLYETHYLENE GLYCOL 17 GM PACKET GTB SCH (09:39)
[2016-10-21] MEDS: ZINC SULFATE 220 MG CAP GTB SCH (09:39)
[2016-10-21] MEDS ORDERED: EPOETIN 10000 UNITS/1 ML INJ (ESRD) SC ONE (10:00)
[2016-10-21] MEDS: MEROPENEM 500MG/50 ML (PMX) 50 ML IVPB SCH ×2 (11:10→21:10)
[2016-10-21] MEDS: GABAPENTIN (50 MG/ML PO SYG) GTB SCH ×3 (11:13→21:10)
[2016-10-21] MEDS: DEXTROSE 5%-0.45% NACL 1,000 ML IV SCH ×2 (11:13→23:48)
[2016-10-21 11:17] LABS: AADO2 Arterial 153.7 mmHg (7.0-24.0); Allen Test ACCEPTAB; Arterial Base Excess 3.3 mmol/L (-3.0-3); Arterial COHb 0.3 % (0.0-3.0); Arterial Fraction of Oxyhgb 94.9 % (93.0-99.0); Arterial HCO3 28.4 mmol/L (22.0-26.0); Arterial MetHb 0.5 % (0.0-1.5); Arterial Total Hemglobin 7.5 g/dl (12.0-18.0); Blood Gas PS 14; MODE VENT - SIMV
--- NOTE | 2016-10-21 11:32 | RADRPT ---
PROCEDURE: XR Chest. CLINICAL INDICATION: Respiratory failure TECHNIQUE: Single frontal view of the chest was obtained COMPARISON: 10/03/2016 FINDINGS: See impression. IMPRESSION: Stable tracheostomy and left buttock. Worsening aeration of the lung bases, likely due to bilateral pleural effusions, right greater than left. Superimposed infection to be determined clinically. Othe rwise, no convincing interval change compared to chest radiograph dated 10/03/2016. RPTAT: EE Destin Nielsen Physician Date Time Electronically viewed and signed by Destin Nielsen Physician on 10/21/2016 11:32 /
--- NOTE | 2016-10-21 12:16 | CONS ---
Date/Time of Note Date/Time of Note DATE: 10/21/16 TIME: 12:14 Assessment/Plan Assessment/Plan Additional Assessment/Plan Sepsis/SIRS Hypotension Sinus tachycardia Acute kidney injury with hyperkalemia Respiratory Failure Preserved EF on echocardiogram March 02, 2016 History of intermittent Mobitz I Chronic pain syndrome -Patient with hypotension yesterday afternoon, given IV fluid boluses with improvement in blood pressure. Patient also febrile and concern for sepsis. Antibiotics as per primary team. Continue to hold any antihypertensives. If patient does not respond to IV fluid boluses, would initiate IV pressor to maintain SBP greater than 90 and or map above 60. Consultation Date/Type/Reason Admit Date/Time Oct 20, 2016 at 06:14 Initial Consult Date 10/20/16 Type of Consultation: cv Referring Provider: JOSÉ ANTONIO MIRZA MD 24 HR Interval Summary Free Text/Dictation Patient feeling better today. Denies palpitations, dizziness or shortness of breath. Transferred to ICU yesterday secondary to hypotension Exam/Review of Systems Vital Signs Vitals Vital Signs Date Time Temp Pulse Resp B/P Pulse Ox O2 Delivery O2 Flow Rate FiO2 10/21/16 11:38 40 10/21/16 10:30 113 24 105/65 96 Mechanical Ventilator 10/21/16 08:00 97.8 Intake and Output 10/20/16 10/20/16 10/21/16 15:00 23:00 07:00 Intake Total 720 ml 1580 ml Output Total 365 ml 450 ml Balance 355 ml 1130 ml Exam No apparent distress Constitutional: alert, frail, oriented Head: normocephalic Neck: other (Tracheostomy) Respiratory: other (Coarse breath sounds bilaterally, no wheezing) Cardiovascular: other (S1-S2 heard), regular rate and rhythm (Tachycardic) Gastrointestinal: bowel sounds, non-tender, soft Extremities: edema (Trace) Results Result Diagram: 10/21/16 0415 10/21/16 0415 Results 24 hrs Laboratory Tests Test 10/20/16 16:06 10/20/16 16:08 10/21/16 04:15 10/21/16 10:12 Sodium Level 146 H 146 H Potassium Level 5.7 H 4.8 Chloride Level 112 H 113 H Carbon Dioxide Level 28 29 Anion Gap 12 9 Blood Urea Nitrogen 64 H 58 H Creatinine 1.55 H 1.43 H Glucose Level 109 102 Calcium Level 8.6 8.5 Lactic Acid Level 0.8 White Blood Count 4.7 #L Red Blood Count 2.50 L Hemoglobin 7.5 L Hematocrit 26.0 L Mean Corpuscular Volume 104.0 H Mean Corpuscular Hemoglobin 30.0 Mean Corpuscular Hemoglobin Concent 28.8 L Red Cell Distribution Width 14.6 H Platelet Count 111 #L Mean Platelet Volume 11.4 H Neutrophils % 82.0 H Lymphocytes % 6.7 L Monocytes % 8.8 Eosinophils % 1.9 Basophils % 0.2 Nucleated Red Blood Cells % 0.0 Neutrophils # 3.8 Lymphocytes # 0.3 L Monocytes # 0.4 Eosinophils # 0.1 Basophils # 0.0 Nucleated Red Blood Cells # 0.0 Blood Gas Specimen Source Blood arterial Arterial Blood Date Drawn 10/21/2016 11:00:49 AM Arterial Blood pH (Temp corrected) 7.403 Arterial Blood pCO2 (Temp correct) 46.6 H Arterial Blood pO2 (Temp corrected) 77.9 L Arterial Blood HCO3 28.4 H Arterial Blood Base Excess 3.3 H Arterial Blood Oxygen Saturation 95.7 Julito Test ACCEPTAB Arterial Blood Gas Puncture Site Right Radial Arterial Blood Carboxyhemoglobin 0.3 Arterial Blood Methemoglobin 0.5 Blood Gas A-a O2 Differential 153.7 H Oxyhemoglobin Percent 94.9 Total Hemoglobin 7.5 L Blood Gas Temperature 37.0 Blood Gas Respiration Rate 14.0 Blood Gas Actual Respiration Rate 23 Blood Gas Modality VENT - SIMV FiO2 40.0 Blood Gas Tidal Volume 500.0 Blood Gas Low PEEP Setting 5.0 Blood Gas Pressure Support 14 Blood Gas Notified Whom JLD Blood Gas Notified Time 10/21/2016 11:16:54 AM Medications Medications Current Medications Dextrose (D50w Syringe) ONCE PRN IV POC BLOOD GLUCOSE <250 MG/DL; Start at 06:00 Hydromorphone HCl (Dilaudid) 1 mg Q4H PRN IV PAIN Last administered on 09:13; Admin Dose 1 MG; Start 10/20/16 at 10:00 Acetaminophen (Tylenol Liquid) 650 mg Q4H PRN GTB MILD PAIN LEVEL 1-3; Start at 13:30 Ascorbic Acid (Vitamin C) 500 mg DAILY GTB Last administered on 10/21/16 09:39 ; Admin Dose 500 MG; Start 10/20/16 at 14:00 Bisacodyl (Dulcolax Supp) 10 mg Q24H PRN [place] CONSTIPATION; Start 10/20/16 at 13: 30 Citric Acid/ Sodium Citrate (Bicitra Liquid (Ped)) 10 meq TID GTB Last administered on 10/21/16 09:38; Admin Dose 10 MEQ; Start 10/20/16 at 21:00 Docusate Sodium (Colace Liquid Cup) 200 mg QHS GTB Last administered on 22:30; Admin Dose 200 MG; Start 10/20/16 at 21:00 Enoxaparin Sodium (Lovenox) 30 mg DAILY SC ; Start 10/21/16 at 09:00; Status Future Hold Ferrous Sulfate (Ferrous Sulfate) 330 mg DAILY GTB ; Start 10/21/16 at 09:00 Magnesium Hydroxide (Milk Of Mag) 30 ml DAILY PRN GTB CONSTIPATION; Start 10/20 at 13:30 Lansoprazole (Prevacid) 30 mg DAILY@06 GTB Last administered on 10/21/16 06:16 ; Admin Dose 30 MG; Start 10/21/16 at 06:00 Polyethylene Glycol (Miralax) 17 gm DAILY GTB Last administered on 10/21/16 09 :39; Admin Dose 17 GM; Start 10/20/16 at 13:30 Zinc Sulfate (Zinc Sulfate) 220 mg DAILY GTB Last administered on 10/21/16 09: 39; Admin Dose 220 MG; Start 10/21/16 at 09:00 Multivit/Ca Carb/ B Cmplx/FA/Prenat (Lilibeth-Linn) 1 tab DAILY GTB Last administered on 10/21/16 09:39; Admin Dose 1 TAB; Start 10/21/16 at 09:00 Acetaminophen/ Hydrocodone Bitart ([place] (5/325)) 1 tab Q6 PRN GTB PAIN LEVEL 1 -5; Start 10/20/16 at 14:00 Gabapentin (Neurontin Liquid) 100 mg TID GTB Last administered on 10/21/16 11: 13; Admin Dose 100 MG; Start 10/20/16 at 21:00 Risperidone (Risperdal) 1 mg QHS GTB Last administered on 10/20/16 22:30; Admin Dose 1 MG; Start 10/20/16 at 21:00 Ferrous Sulfate 300 mg 300 mg DAILY GTB Last administered on 10/21/16 09:38; Admin Dose 300 MG; Start 10/20/16 at 14:07 Meropenem/Sodium Chloride 50 ml @ 100 mls/hr Q12 IVPB Last administered on 11:10; Admin Dose 100 MLS/HR; Start 10/20/16 at 21:00 Vancomycin HCl/ Sodium Chloride (Vancocin/NS) 250 ml @ 83.333 mls/ hr Q48H IVPB ; Start 10/22/16 at 20:00 Miscellaneous Information (Pending Santyl Order For Wound Care) This patient noriega... PRN PRN XX WOUND CARE; Start 10/20/16 at 20:00 Zolpidem Tartrate 5 mg 5 mg HS PRN PO INSOMNIA Last administered on 10/20/16 22:32; Admin Dose 5 MG; Start 10/20/16 at 21:00 Norepinephrine 250 ml @ 1.875 mls/ hr TITRATE IV ; Start 10/20/16 at 21:00 Dextrose/Sodium Chloride (D5-1/2ns) 1,000 ml @ 70 mls/hr [id number] IV Last administered on 10/21/16 11:13; Admin Dose 70 MLS/HR; Start 10/21/16 at 09:30 Deandre Chavez DO Oct 21, 2016 12:16
--- NOTE | 2016-10-21 12:39 | PN ---
DATE: 10/21/2016 PRIMARY PHYSICIAN: Dr. Barreto SUBJECTIVE/OBJECTIVE DATA: VITAL SIGNS: The patient is in ICU. He was transferred because of borderline low blood pressure; however, his blood pressure is stable now, the most recent blood pressure being 106/60. The heart rate is 111, showing sinus tachycardia. Respiratory rate is 25. Pulse oximetry shows 96 percent saturation. He has not had any fever spikes, and he is afebrile. GENERAL: The patient is awake, responsive, able to follow commands. He is on continuous long-term ventilator support through tracheostomy. His breathing appears unlabored. Tracheal secretions are clear. No bleeding is seen. No obstruction suctioning. HEART: Sinus tachycardia. CHEST: Breath sounds are heard, more diminished in the lower lung tierney. Otherwise, clear in the upper and mid lung tierney. ABDOMEN: Soft, not distended. He is tolerating gastrostomy tube feedings. Bowel sounds are normally heard. EXTREMITIES: Show no edema. He is paraplegic. He has weakness of the upper extremities also and shows evidence of contractures. LABORATORY AND DIAGNOSTIC DATA: From today, shows WBC of 4700, hemoglobin 7.5, hematocrit 26. Platelets are decreased to 111,000. Chemistry panel shows sodium 146, potassium 4.8, bicarbonate 29, BUN 58, creatinine 1.43. Glucose is 102. BUN and creatinine have been gradually inching downward. Potassium also has normalized. His lactic acid level is 0.8. ASSESSMENT: 1. Chronic respiratory failure, ventilator dependent. 2. Rule out sepsis. 3. Chronic kidney disease. 4. Hyperkalemia, resolved. 5. Chronic anemia. 6. Paraplegia secondary to spinal cord injury. PLAN: 1. Continue long-term ventilator support. 2. Arterial blood gas has been ordered for baseline. 3. Chest x-ray also has been ordered to rule out possibility of pneumonia. 4. . Continue antibiotics. Presently he is on meropenem and vancomycin. 5. Continue gastrostomy tube feedings. 6. Continue bronchodilation therapy to maintain pulmonary hygiene and clear the secretions. 7. One unit of packed cells has been ordered to correct the anemia. I have discussed all of the above and the treatment plan with the ICU nurse and respiratory therapy at the bedside. Also explained to the patient. Dictated By: Palmer Ames MD /sera/balta /Document#: [id number]
[2016-10-21] MEDS ORDERED: ALBUTEROL 18 GM INHALER INH SCH (14:00)
[2016-10-21] MEDS: LEVALBUTEROL (HFA) 15 GM INHALER INH SCH ×2 (14:00→19:15)
[2016-10-21] MEDS: IPRATROPIUM (HFA) 12.9 GM INHALER INH SCH ×2 (14:03→19:15)
--- NOTE | 2016-10-21 15:35 | CONS ---
Date/Time of Note Date/Time of Note DATE: 10/21/16 TIME: 15:32 Assessment/Plan Assessment/Plan Chief Complaint/Hosp Course 41-year-old male who is quadriplegic secondary to his C5-C6 injury during a wrestling accident at the age of 15. He was sent from [facility] for hyperkalemia. The patient had labs drawn yesterday which showed high potassium then repeated again which again showed high potassium. The patient says he has pain all over and has chronic pain. Other than that he has no symptoms. He says he has no cough no vomiting or diarrhea.He is noted to have acute kidney injury, Hyperkalemia, renal has been consulted for BELINDA. Problems: Additional Assessment/Plan 1. Acute kidney injury secondary to severe prerenal azotemia and possible acute tubular necrosis 2. Acute uremia with a BUN of 69, Cr 1.46.- slowly improving with D5W 3. Acute hyperkalemia 5. 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 6. History of neurogenic bladder with urinary retention, status post suprapubic catheter. 7. History of previous recurrent urinary tract infections. 8. 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 9. 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 10. Other medical history includes anxiety, depression, bipolar disorder, psychosis. 11. History of right nephrectomy with left renal nephrolithiasis and a left renal cyst measuring 5.3 cm in size. Plan: Transferred to ICU due to hypotension , D/C NS, start D51/2 NS at 75 cc/h due to rising Na , K 4.8, Cr 1.48 expecting renal function to improve with IV fluids BP stable ICU care as per primary physician will follow up Consultation Date/Type/Reason Admit Date/Time Oct 20, 2016 at 06:14 Initial Consult Date 10/20/16 Type of Consultation: NEPHROLOGY Referring Provider: JOSÉ ANTONIO MIRZA MD 24 HR Interval Summary Free Text/Dictation pt transferred to ICU due to hypotension Exam/Review of Systems Vital Signs Vitals Vital Signs Date Time Temp Pulse Resp B/P Pulse Ox O2 Delivery O2 Flow Rate FiO2 10/21/16 13:30 112 27 94 45 10/21/16 10:30 105/65 Mechanical Ventilator 10/21/16 08:00 97.8 Intake and Output 10/20/16 10/20/16 10/21/16 15:00 23:00 07:00 Intake Total 720 ml 1580 ml Output Total 365 ml 450 ml Balance 355 ml 1130 ml Exam Constitutional: alert ENMT: nl external ears & nose, other (+ tracheostomy on ventilator ) Neck: supple Respiratory: clear to auscultation, crackles/rales Cardiovascular: nl pulses, regular rate and rhythm Gastrointestinal: non-tender, other (+ G tube placement ), soft Musculoskeletal: quadruplegic Results Result Diagram: 10/21/16 0415 10/21/16 0415 Results 24 hrs Laboratory Tests Test 10/20/16 16:06 10/20/16 16:08 10/21/16 04:15 10/21/16 10:12 Sodium Level 146 H 146 H Potassium Level 5.7 H 4.8 Chloride Level 112 H 113 H Carbon Dioxide Level 28 29 Anion Gap 12 9 Blood Urea Nitrogen 64 H 58 H Creatinine 1.55 H 1.43 H Glucose Level 109 102 Calcium Level 8.6 8.5 Lactic Acid Level 0.8 White Blood Count 4.7 #L Red Blood Count 2.50 L Hemoglobin 7.5 L Hematocrit 26.0 L Mean Corpuscular Volume 104.0 H Mean Corpuscular Hemoglobin 30.0 Mean Corpuscular Hemoglobin Concent 28.8 L Red Cell Distribution Width 14.6 H Platelet Count 111 #L Mean Platelet Volume 11.4 H Neutrophils % 82.0 H Lymphocytes % 6.7 L Monocytes % 8.8 Eosinophils % 1.9 Basophils % 0.2 Nucleated Red Blood Cells % 0.0 Neutrophils # 3.8 Lymphocytes # 0.3 L Monocytes # 0.4 Eosinophils # 0.1 Basophils # 0.0 Nucleated Red Blood Cells # 0.0 Blood Gas Specimen Source Blood arterial Arterial Blood Date Drawn 10/21/2016 11:00:49 AM Arterial Blood pH (Temp corrected) 7.403 Arterial Blood pCO2 (Temp correct) 46.6 H Arterial Blood pO2 (Temp corrected) 77.9 L Arterial Blood HCO3 28.4 H Arterial Blood Base Excess 3.3 H Arterial Blood Oxygen Saturation 95.7 Julito Test ACCEPTAB Arterial Blood Gas Puncture Site Right Radial Arterial Blood Carboxyhemoglobin 0.3 Arterial Blood Methemoglobin 0.5 Blood Gas A-a O2 Differential 153.7 H Oxyhemoglobin Percent 94.9 Total Hemoglobin 7.5 L Blood Gas Temperature 37.0 Blood Gas Respiration Rate 14.0 Blood Gas Actual Respiration Rate 23 Blood Gas Modality VENT - SIMV FiO2 40.0 Blood Gas Tidal Volume 500.0 Blood Gas Low PEEP Setting 5.0 Blood Gas Pressure Support 14 Blood Gas Notified Whom JLD Blood Gas Notified Time 10/21/2016 11:16:54 AM Medications Medications Current Medications Dextrose (D50w Syringe) ONCE PRN IV POC BLOOD GLUCOSE <250 MG/DL; Start at 06:00 Hydromorphone HCl (Dilaudid) 1 mg Q4H PRN IV PAIN Last administered on 13:02; Admin Dose 1 MG; Start 10/20/16 at 10:00 Acetaminophen (Tylenol Liquid) 650 mg Q4H PRN GTB MILD PAIN LEVEL 1-3; Start at 13:30 Ascorbic Acid (Vitamin C) 500 mg DAILY GTB Last administered on 10/21/16 09:39 ; Admin Dose 500 MG; Start 10/20/16 at 14:00 Bisacodyl (Dulcolax Supp) 10 mg Q24H PRN [place] CONSTIPATION; Start 10/20/16 at 13: 30 Citric Acid/ Sodium Citrate (Bicitra Liquid (Ped)) 10 meq TID GTB Last administered on 10/21/16 14:19; Admin Dose 10 MEQ; Start 10/20/16 at 21:00 Docusate Sodium (Colace Liquid Cup) 200 mg QHS GTB Last administered on 22:30; Admin Dose 200 MG; Start 10/20/16 at 21:00 Enoxaparin Sodium (Lovenox) 30 mg DAILY SC ; Start 10/21/16 at 09:00; Status Future Hold Ferrous Sulfate (Ferrous Sulfate) 330 mg DAILY GTB ; Start 10/21/16 at 09:00 Magnesium Hydroxide (Milk Of Mag) 30 ml DAILY PRN GTB CONSTIPATION; Start 10/20 at 13:30 Lansoprazole (Prevacid) 30 mg DAILY@06 GTB Last administered on 10/21/16 06:16 ; Admin Dose 30 MG; Start 10/21/16 at 06:00 Polyethylene Glycol (Miralax) 17 gm DAILY GTB Last administered on 10/21/16 09 :39; Admin Dose 17 GM; Start 10/20/16 at 13:30 Zinc Sulfate (Zinc Sulfate) 220 mg DAILY GTB Last administered on 10/21/16 09: 39; Admin Dose 220 MG; Start 10/21/16 at 09:00 Multivit/Ca Carb/ B Cmplx/FA/Prenat (Lilibeth-Linn) 1 tab DAILY GTB Last administered on 10/21/16 09:39; Admin Dose 1 TAB; Start 10/21/16 at 09:00 Acetaminophen/ Hydrocodone Bitart ([place] (5/325)) 1 tab Q6 PRN GTB PAIN LEVEL 1 -5; Start 10/20/16 at 14:00 Gabapentin (Neurontin Liquid) 100 mg TID GTB Last administered on 10/21/16 14: 19; Admin Dose 100 MG; Start 10/20/16 at 21:00 Risperidone (Risperdal) 1 mg QHS GTB Last administered on 10/20/16 22:30; Admin Dose 1 MG; Start 10/20/16 at 21:00 Ferrous Sulfate 300 mg 300 mg DAILY GTB Last administered on 10/21/16 09:38; Admin Dose 300 MG; Start 10/20/16 at 14:07 Meropenem/Sodium Chloride 50 ml @ 100 mls/hr Q12 IVPB Last administered on 11:10; Admin Dose 100 MLS/HR; Start 10/20/16 at 21:00 Vancomycin HCl/ Sodium Chloride (Vancocin/NS) 250 ml @ 83.333 mls/ hr Q48H IVPB ; Start 10/22/16 at 20:00 [facility] This patient noriega... PRN PRN XX WOUND CARE; Start 10/20/16 at 20:00 Zolpidem Tartrate 5 mg 5 mg HS PRN PO INSOMNIA Last administered on 10/20/16 22:32; Admin Dose 5 MG; Start 10/20/16 at 21:00 Norepinephrine 250 ml @ 1.875 mls/ hr TITRATE IV ; Start 10/20/16 at 21:00 Dextrose/Sodium Chloride (D5-1/2ns) 1,000 ml @ 70 mls/hr [id number] IV Last administered on 10/21/16 11:13; Admin Dose 70 MLS/HR; Start 10/21/16 at 09:30 Permethrin (Elimite 5% Cr) 1 applic Q7D TOP ; Start 10/21/16 at 16:00; Stop at 16:01 TIARA CISNEROS MD Oct 21, 2016 15:35
[2016-10-21] MEDS: PERMETHRIN 5% 60 GM CR TOP SCH (16:35)
--- NOTE | 2016-10-21 17:07 | RADRPT ---
PROCEDURE: CT Abdomen and Pelvis without contrast. CLINICAL INDICATION: Abdominal and pelvic pain. History of renal calculi and left ureteral stent. TECHNIQUE: CT scan of the abdomen and pelvis without contrast was performed. Coronal and sagittal reformatted images were obtained from the axial source images. Images were reviewed on a high-res[employer] PACS workstation. Total exam DLP is 821.83 mGy-cm. CTDIvol is 13.58 mGy. One or more of the f ollowing dose reduction techniques were used: Automated exposure control, adjustment of the mA and/o r kV according to patient size, use of iterative reconstruction technique. COMPARISON: 05/02/2015. FINDINGS: There is a central line with the tip in the lower superior vena cava. The heart is mildly enlarged. There is no pericardial effusion. There is a small right pleural effusion. There is no left pleural effusion. There is moderate atelectasis at both lung bases posteriorly with right worse than left. The liver is normal in size and attenuation. There is no focal hepatic lesion. Gallstones are present in the gallbladder. There is no evidence of cholecystitis. The bile ducts are normal. The spleen is enlarged. There is no focal splenic lesion. Both adrenals are normal with no enlargement or mass. The pancreas is unremarkable with no mass or evidence of pancreatitis. The right kidney is surgically absent. Multiple calculi are noted posteriorly throughout the left ki dney, unchanged. A double pigtail left ureteral stent is present in satisfactory position, unchanged . There is no left ureteral calculus. There is moderate left hydronephrosis with thinning of the lef t renal parenchyma, unchanged. The left kidney is normal in size measuring 13 cm in length. The abdominal aorta is not dilated. There is no retroperitoneal lymphadenopathy or mass. There is no pelvic lymphadenopathy or mass. There is a suprapubic Morris catheter in the urinary bladder. There is no bladder calculus. The periappendiceal region is unremarkable with no evidence of appendicitis. There is a balloon tipp gastrostomy tube in satisfactory position. The bowel and mesentery are other ribeiro normal. There is a small amount of free fluid. There is no free air. There are mild degenerative changes of the spine and hips. There is no fracture or lytic lesion. Th ere is absence of the distal sacrum which may be congenital or acquired. There is a skin ulcer at th is site. IMPRESSION: 1. Central line tip in the lower superior vena cava. 2. Mild cardiomegaly. 3. Small right pleural effusion. No left pleural effusion. 4. Moderate atelectasis at the lung bases posteriorly with right worse than left. 5. Gallstones in the gallbladder. No evidence of cholecystitis. 6. Splenomegaly. 7. Status post right nephrectomy carlos 8. Multiple calculi posteriorly throughout the left kidney, unchanged. 9. Double pigtail left ureteral stent in satisfactory position, unchanged. 10. Moderate left hydronephrosis with thinning of the left renal parenchyma, unchanged. 11. Suprapubic Morris catheter in the urinary bladder. 12. Gastrostomy tube in satisfactory position. 13. Small amount of free fluid in the abdomen. 14. Mild degenerative changes of the spine and hips. 15. 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 Skin ulcer overlying the sacr um. RPTAT: QQ .Cain Castellanos MD, MD Date Time Electronically viewed and signed by .aCin Castellanos MD, on 10/21/2016 17:06 .R/
--- NOTE | 2016-10-21 18:49 | PN ---
DATE: 10/21/2016 SUBJECTIVE DATA: The patient was transferred to ICU for significant tachycardia and hyperkalemia. He is awake, lying comfortably in bed. Spiked fever yesterday at 4 p.m. of 102. OBJECTIVE DATA: Currently afebrile with a temperature 97.8, pulse 113, respirations 24, blood pressure 105/65, saturation 96 percent on FiO2 40. Antimicrobials: Patient was started on vancomycin, meropenem. Indwelling: Trach, suprapubic catheter, PICC line. DIAGNOSTICS: Chest x-ray revealed worsening aeration of the lung bases, likely due to bilateral pleural effusions, right greater than left, superimposed infection, to be determined clinically. LABORATORY AND DIAGNOSTIC DATA: WBC today 4.7, H and H 7.5 and 26, platelets 111, neutrophils 82. Sodium 146, potassium 4.8, BUN 58, creatinine 1.43. X-ray of the abdomen yesterday revealed JJ left ureteral stent, possible left renal calculi, moderate colonic stool suggesting constipation. PHYSICAL EXAMINATION: GENERAL: This is a chronically ill-appearing, fragile, middle- aged, white man, who is lying comfortably in bed. HEENT: Head atraumatic, normocephalic. Sclerae anicteric. Buccal mucosa dry. NECK: Supple. CHEST: Rise symmetrical. Breath sounds with scattered crackles. HEART: S1, S2. ABDOMEN: Soft, bowel sounds present. EXTREMITIES: Contractures, wasting, without cyanosis. ASSESSMENT: 1. Sepsis possibly secondary to healthcare-associated pneumonia. Rule out urinary tract infection, recurrent. 2. Acute on chronic kidney disease. 3. Tachycardia. 4. Hyperkalemia, present on admission, resolved. 5. History of obstructive uropathy status post JJ stent placement on the left. 6. Paraplegia and neurogenic bladder. 7. Rash, rule out scabies. PLAN: The patient is currently stable. He is covered with broad- spectrum antibiotics. Pending cultures. The patient is being seen by Dr. Francois Marquez in urology consultation, who recommends removal and replacement of JJ stent. Pending CT of the abdomen. Pending skin scrapings. Continue current antibiotics. Dictated By: Celso Mancilla NP /sera/cortes /Document#: [id number] MTDD
--- NOTE | 2016-10-21 19:15 | PN ---
Date/Time of Note Date/Time of Note DATE: 10/21/16 TIME: 19:10 Assessment/Plan VTE Prophylaxis VTE Prophylaxis Intervention: other Lines/Catheters IV Catheter Type (from Nrsg): PICC Line Central line still needed: Yes Urinary Cath still in place: Yes (suprapubic) Reason Cath still needed: urinary retention Assessment/Plan Assessment/Plan -Hypotension- cont in ICU -- Rash, rule out scabies. - per ID -Hyperkalemia-potassium4,8 -Nephrology follows-Dr. Paul Barker -We will do a BMP follow-up results -Acute renal failure -Nephrology follows -Chronic VDRF -Pulmonary consult -Aspiration precautions -SP post suprapubic catheter-infected. Hx right nephrostomy - per urology- Dr. Harley -per ID consult, Dr. Maciel' -Tachycardia, history of intermittent Mobitz 1, history of preserved EF -per Cardiology consult, Dr. John bolanos -[id number] is able to take p.o. -Aspiration precautions - History of obstructive uropathy status post JJ stent placement on the left. - Paraplegia and neurogenic bladder. DW dR Agarwal/Staff Subjective 24 Hr Interval Summary Constitutional: requiring IVF, requiring O2 Respiratory: no complaints Cardiovascular: no complaints Gastrointestinal: no complaints Exam/Review of Systems Vital Signs Vitals Vital Signs Date Time Temp Pulse Resp B/P Pulse Ox O2 Delivery O2 Flow Rate FiO2 10/21/16 17:32 115 22 95 45 10/21/16 16:15 120/89 Mechanical Ventilator 10/21/16 16:00 97.8 Intake and Output 10/20/16 10/20/16 10/21/16 15:00 23:00 07:00 Intake Total 720 ml 1580 ml Output Total 365 ml 450 ml Balance 355 ml 1130 ml Exam Constitutional: alert, frail, oriented (to name only) Respiratory: diminished breath sounds Gastrointestinal: non-tender, soft Musculoskeletal: muscle weakness Extremities: normal pulses Neurological: other (follows simple commands) Results Result Diagram: 10/21/16 0415 10/21/16 0415 Results 24 hrs Laboratory Tests Test 10/21/16 04:15 10/21/16 10:12 White Blood Count 4.7 #L Red Blood Count 2.50 L Hemoglobin 7.5 L Hematocrit 26.0 L Mean Corpuscular Volume 104.0 H Mean Corpuscular Hemoglobin 30.0 Mean Corpuscular Hemoglobin Concent 28.8 L Red Cell Distribution Width 14.6 H Platelet Count 111 #L Mean Platelet Volume 11.4 H Neutrophils % 82.0 H Lymphocytes % 6.7 L Monocytes % 8.8 Eosinophils % 1.9 Basophils % 0.2 Nucleated Red Blood Cells % 0.0 Neutrophils # 3.8 Lymphocytes # 0.3 L Monocytes # 0.4 Eosinophils # 0.1 Basophils # 0.0 Nucleated Red Blood Cells # 0.0 Sodium Level 146 H Potassium Level 4.8 Chloride Level 113 H Carbon Dioxide Level 29 Anion Gap 9 Blood Urea Nitrogen 58 H Creatinine 1.43 H Glucose Level 102 Calcium Level 8.5 Blood Gas Specimen Source Blood arterial Arterial Blood Date Drawn 10/21/2016 11:00:49 AM Arterial Blood pH (Temp corrected) 7.403 Arterial Blood pCO2 (Temp correct) 46.6 H Arterial Blood pO2 (Temp corrected) 77.9 L Arterial Blood HCO3 28.4 H Arterial Blood Base Excess 3.3 H Arterial Blood Oxygen Saturation 95.7 Julito Test ACCEPTAB Arterial Blood Gas Puncture Site Right Radial Arterial Blood Carboxyhemoglobin 0.3 Arterial Blood Methemoglobin 0.5 Blood Gas A-a O2 Differential 153.7 H Oxyhemoglobin Percent 94.9 Total Hemoglobin 7.5 L Blood Gas Temperature 37.0 Blood Gas Respiration Rate 14.0 Blood Gas Actual Respiration Rate 23 Blood Gas Modality VENT - SIMV FiO2 40.0 Blood Gas Tidal Volume 500.0 Blood Gas Low PEEP Setting 5.0 Blood Gas Pressure Support 14 Blood Gas Notified Whom JLD Blood Gas Notified Time 10/21/2016 11:16:54 AM Medications Medications Current Medications Dextrose (D50w Syringe) ONCE PRN IV POC BLOOD GLUCOSE <250 MG/DL; Start at 06:00 Hydromorphone HCl (Dilaudid) 1 mg Q4H PRN IV PAIN Last administered on 17:00; Admin Dose 1 MG; Start 10/20/16 at 10:00 Acetaminophen (Tylenol Liquid) 650 mg Q4H PRN GTB MILD PAIN LEVEL 1-3; Start at 13:30 Ascorbic Acid (Vitamin C) 500 mg DAILY GTB Last administered on 10/21/16 09:39 ; Admin Dose 500 MG; Start 10/20/16 at 14:00 Bisacodyl (Dulcolax Supp) 10 mg Q24H PRN [place] CONSTIPATION; Start 10/20/16 at 13: 30 Citric Acid/ Sodium Citrate (Bicitra Liquid (Ped)) 10 meq TID GTB Last administered on 10/21/16 14:19; Admin Dose 10 MEQ; Start 10/20/16 at 21:00 Docusate Sodium (Colace Liquid Cup) 200 mg QHS GTB Last administered on 22:30; Admin Dose 200 MG; Start 10/20/16 at 21:00 Enoxaparin Sodium (Lovenox) 30 mg DAILY SC ; Start 10/21/16 at 09:00; Status Future Hold Ferrous Sulfate (Ferrous Sulfate) 330 mg DAILY GTB ; Start 10/21/16 at 09:00 Magnesium Hydroxide (Milk Of Mag) 30 ml DAILY PRN GTB CONSTIPATION; Start 10/20 at 13:30 Lansoprazole (Prevacid) 30 mg DAILY@06 GTB Last administered on 10/21/16 06:16 ; Admin Dose 30 MG; Start 10/21/16 at 06:00 Polyethylene Glycol (Miralax) 17 gm DAILY GTB Last administered on 10/21/16 09 :39; Admin Dose 17 GM; Start 10/20/16 at 13:30 Zinc Sulfate (Zinc Sulfate) 220 mg DAILY GTB Last administered on 10/21/16 09: 39; Admin Dose 220 MG; Start 10/21/16 at 09:00 Multivit/Ca Carb/ B Cmplx/FA/Prenat (Lilibeth-Linn) 1 tab DAILY GTB Last administered on 10/21/16 09:39; Admin Dose 1 TAB; Start 10/21/16 at 09:00 Acetaminophen/ Hydrocodone Bitart ([place] (5/325)) 1 tab Q6 PRN GTB PAIN LEVEL 1 -5; Start 10/20/16 at 14:00 Gabapentin (Neurontin Liquid) 100 mg TID GTB Last administered on 10/21/16 14: 19; Admin Dose 100 MG; Start 10/20/16 at 21:00 Risperidone (Risperdal) 1 mg QHS GTB Last administered on 10/20/16 22:30; Admin Dose 1 MG; Start 10/20/16 at 21:00 Ferrous Sulfate 300 mg 300 mg DAILY GTB Last administered on 10/21/16 09:38; Admin Dose 300 MG; Start 10/20/16 at 14:07 Meropenem/Sodium Chloride 50 ml @ 100 mls/hr Q12 IVPB Last administered on 11:10; Admin Dose 100 MLS/HR; Start 10/20/16 at 21:00 Vancomycin HCl/ Sodium Chloride (Vancocin/NS) 250 ml @ 83.333 mls/ hr Q48H IVPB ; Start 10/22/16 at 20:00 [facility] This patient noriega... PRN PRN XX WOUND CARE; Start 10/20/16 at 20:00 Zolpidem Tartrate 5 mg 5 mg HS PRN PO INSOMNIA Last administered on 10/20/16 22:32; Admin Dose 5 MG; Start 10/20/16 at 21:00 Norepinephrine 250 ml @ 1.875 mls/ hr TITRATE IV ; Start 10/20/16 at 21:00 Dextrose/Sodium Chloride (D5-1/2ns) 1,000 ml @ 70 mls/hr [id number] IV Last administered on 10/21/16 11:13; Admin Dose 70 MLS/HR; Start 10/21/16 at 09:30 Permethrin (Elimite 5% Cr) 1 applic Q7D TOP Last administered on 10/21/16 16: 35; Admin Dose 1 APPLIC; Start 10/21/16 at 16:00; Stop 10/28/16 at 16:01 NAE VELAZCO Oct 21, 2016 19:15
--- NOTE | 2016-10-21 19:23 | PN ---
Date/Time of Note Date/Time of Note DATE: 10/21/16 TIME: 19:15 Assessment/Plan VTE Prophylaxis VTE Prophylaxis Intervention: SCD's Lines/Catheters IV Catheter Type (from Nrs): PICC Line Central line still needed: Yes Urinary Cath still in place: Yes (suprapubic) Reason Cath still needed: urinary retention Assessment/Plan Chief Complaint/Hosp Course This is a 40-year-old male who was admitted to the hospital from a nursing facility because of hypoxemia. 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 Patient has a tracheostomy and also has a suprapubic tube. Patient has had a right nephrectomy. He only has a left kidney and KUB showed that he has a JJ stent. Then he had a CT scan of the abdomen and pelvis to see if the JJ stent is calcified or not. The CT scan showed the JJ stent to be in good place with stones in the lower pole of the left kidney and the stent appeared to be in good position. I talked to the patient and he said he has had it for over 1 year and it was inserted for him in a hospital in [place] For now we will keep the suprapubic tube in place and we have to plan to do a cystoscopy most likely through the suprapubic tract and see if we could remove and may be a replace the ureteral JJ stent or just remove it and that will depend on the findings at the time of the cystoscopy. Problems: Subjective 24 Hr Interval Summary Constitutional: no complaints Eyes: no complaints ENT: no complaints Respiratory: other (Patient is on respirator) Cardiovascular: no complaints Gastrointestinal: no complaints Genitourinary: other (Suprapubic tube in place) Musculoskeletal: other (Paraplegia) Exam/Review of Systems Vital Signs Vitals Vital Signs Date Time Temp Pulse Resp B/P Pulse Ox O2 Delivery O2 Flow Rate FiO2 10/21/16 19:00 107 24 110/67 95 Mechanical Ventilator 10/21/16 17:32 45 10/21/16 16:00 97.8 Intake and Output 10/20/16 10/20/16 10/21/16 15:00 23:00 07:00 Intake Total 720 ml 1580 ml Output Total 365 ml 450 ml Balance 355 ml 1130 ml Exam Constitutional: alert Psych: no complaints ENMT: nl external ears & nose Neck: other (Tracheostomy), supple Respiratory: other (Patient is on respirator) Gastrointestinal: soft Genitourinary - Male: other (Suprapubic tube draining, urine is clear) Extremities: No calf tenderness Results Result Diagram: 10/21/16 0415 10/21/16 0415 Results 24 hrs Laboratory Tests Test 10/21/16 04:15 10/21/16 10:12 White Blood Count 4.7 #L Red Blood Count 2.50 L Hemoglobin 7.5 L Hematocrit 26.0 L Mean Corpuscular Volume 104.0 H Mean Corpuscular Hemoglobin 30.0 Mean Corpuscular Hemoglobin Concent 28.8 L Red Cell Distribution Width 14.6 H Platelet Count 111 #L Mean Platelet Volume 11.4 H Neutrophils % 82.0 H Lymphocytes % 6.7 L Monocytes % 8.8 Eosinophils % 1.9 Basophils % 0.2 Nucleated Red Blood Cells % 0.0 Neutrophils # 3.8 Lymphocytes # 0.3 L Monocytes # 0.4 Eosinophils # 0.1 Basophils # 0.0 Nucleated Red Blood Cells # 0.0 Sodium Level 146 H Potassium Level 4.8 Chloride Level 113 H Carbon Dioxide Level 29 Anion Gap 9 Blood Urea Nitrogen 58 H Creatinine 1.43 H Glucose Level 102 Calcium Level 8.5 Blood Gas Specimen Source Blood arterial Arterial Blood Date Drawn 10/21/2016 11:00:49 AM Arterial Blood pH (Temp corrected) 7.403 Arterial Blood pCO2 (Temp correct) 46.6 H Arterial Blood pO2 (Temp corrected) 77.9 L Arterial Blood HCO3 28.4 H Arterial Blood Base Excess 3.3 H Arterial Blood Oxygen Saturation 95.7 Julito Test ACCEPTAB Arterial Blood Gas Puncture Site Right Radial Arterial Blood Carboxyhemoglobin 0.3 Arterial Blood Methemoglobin 0.5 Blood Gas A-a O2 Differential 153.7 H Oxyhemoglobin Percent 94.9 Total Hemoglobin 7.5 L Blood Gas Temperature 37.0 Blood Gas Respiration Rate 14.0 Blood Gas Actual Respiration Rate 23 Blood Gas Modality VENT - SIMV FiO2 40.0 Blood Gas Tidal Volume 500.0 Blood Gas Low PEEP Setting 5.0 Blood Gas Pressure Support 14 Blood Gas Notified Whom JLD Blood Gas Notified Time 10/21/2016 11:16:54 AM Imaging Free Text/Dictation CT scan of the abdomen and pelvis: 1. Central line tip in the lower superior vena cava. 2. Mild cardiomegaly. 3. Small right pleural effusion. No left pleural effusion. 4. Moderate atelectasis at the lung bases posteriorly with right worse than left. 5. Gallstones in the gallbladder. No evidence of cholecystitis. 6. Splenomegaly. 7. Status post right nephrectomy carlos 8. Multiple calculi posteriorly throughout the left kidney, unchanged. 9. Double pigtail left ureteral stent in satisfactory position, unchanged. 10. Moderate left hydronephrosis with thinning of the left renal parenchyma, unchanged. 11. Suprapubic Morris catheter in the urinary bladder. 12. Gastrostomy tube in satisfactory position. 13. Small amount of free fluid in the abdomen. 14. Mild degenerative changes of the spine and hips. 15. 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 Skin ulcer overlying the sacrum. Medications Medications Current Medications Dextrose (D50w Syringe) ONCE PRN IV POC BLOOD GLUCOSE <250 MG/DL; Start at 06:00 Hydromorphone HCl (Dilaudid) 1 mg Q4H PRN IV PAIN Last administered on 17:00; Admin Dose 1 MG; Start 10/20/16 at 10:00 Acetaminophen (Tylenol Liquid) 650 mg Q4H PRN GTB MILD PAIN LEVEL 1-3; Start at 13:30 Ascorbic Acid (Vitamin C) 500 mg DAILY GTB Last administered on 10/21/16 09:39 ; Admin Dose 500 MG; Start 10/20/16 at 14:00 Bisacodyl (Dulcolax Supp) 10 mg Q24H PRN [place] CONSTIPATION; Start 10/20/16 at 13: 30 Citric Acid/ Sodium Citrate (Bicitra Liquid (Ped)) 10 meq TID GTB Last administered on 10/21/16 14:19; Admin Dose 10 MEQ; Start 10/20/16 at 21:00 Docusate Sodium (Colace Liquid Cup) 200 mg QHS GTB Last administered on 22:30; Admin Dose 200 MG; Start 10/20/16 at 21:00 Enoxaparin Sodium (Lovenox) 30 mg DAILY SC ; Start 10/21/16 at 09:00; Status Future Hold Ferrous Sulfate (Ferrous Sulfate) 330 mg DAILY GTB ; Start 10/21/16 at 09:00 Magnesium Hydroxide (Milk Of Mag) 30 ml DAILY PRN GTB CONSTIPATION; Start 10/20 at 13:30 Lansoprazole (Prevacid) 30 mg DAILY@06 GTB Last administered on 10/21/16 06:16 ; Admin Dose 30 MG; Start 10/21/16 at 06:00 Polyethylene Glycol (Miralax) 17 gm DAILY GTB Last administered on 10/21/16 09 :39; Admin Dose 17 GM; Start 10/20/16 at 13:30 Zinc Sulfate (Zinc Sulfate) 220 mg DAILY GTB Last administered on 10/21/16 09: 39; Admin Dose 220 MG; Start 10/21/16 at 09:00 Multivit/Ca Carb/ B Cmplx/FA/Prenat (Lilibeth-Linn) 1 tab DAILY GTB Last administered on 10/21/16 09:39; Admin Dose 1 TAB; Start 10/21/16 at 09:00 Acetaminophen/ Hydrocodone Bitart ([place] (5/325)) 1 tab Q6 PRN GTB PAIN LEVEL 1 -5; Start 10/20/16 at 14:00 Gabapentin (Neurontin Liquid) 100 mg TID GTB Last administered on 10/21/16 14: 19; Admin Dose 100 MG; Start 10/20/16 at 21:00 Risperidone (Risperdal) 1 mg QHS GTB Last administered on 10/20/16 22:30; Admin Dose 1 MG; Start 10/20/16 at 21:00 Ferrous Sulfate 300 mg 300 mg DAILY GTB Last administered on 10/21/16 09:38; Admin Dose 300 MG; Start 10/20/16 at 14:07 Meropenem/Sodium Chloride 50 ml @ 100 mls/hr Q12 IVPB Last administered on 11:10; Admin Dose 100 MLS/HR; Start 10/20/16 at 21:00 Vancomycin HCl/ Sodium Chloride (Vancocin/NS) 250 ml @ 83.333 mls/ hr Q48H IVPB ; Start 10/22/16 at 20:00 Miscellaneous Information (Pending Santyl Order For Wound Care) This patient noriega... PRN PRN XX WOUND CARE; Start 10/20/16 at 20:00 Zolpidem Tartrate 5 mg 5 mg HS PRN PO INSOMNIA Last administered on 10/20/16 22:32; Admin Dose 5 MG; Start 10/20/16 at 21:00 Norepinephrine 250 ml @ 1.875 mls/ hr TITRATE IV ; Start 10/20/16 at 21:00 Dextrose/Sodium Chloride (D5-1/2ns) 1,000 ml @ 70 mls/hr [id number] IV Last administered on 10/21/16 11:13; Admin Dose 70 MLS/HR; Start 10/21/16 at 09:30 Permethrin (Elimite 5% Cr) 1 applic Q7D TOP Last administered on 10/21/16 16: 35; Admin Dose 1 APPLIC; Start 10/21/16 at 16:00; Stop 10/28/16 at 16:01 BHARGAV JIANG MD Oct 21, 2016 19:23
--- NOTE | 2016-10-21 20:16 | RADRPT ---
Vent Rate: 117 bpm RR Interval: [address] Interval: 150 msec QRS Duration: 82 msec QT Interval: 282 msec QTC Interval: 393 msec P-R-T [place]: 46 - 44 - 68 degrees Sinus tachycardia Otherwise normal ECG Electronically Signed By: Dimas Bhatt [id number]
[2016-10-21] MEDS: ZOLPIDEM 5 MG TAB PO PRN (21:10)
[2016-10-21] MEDS: DOCUSATE SODIUM 10 MG/ML (10ML CUP) GTB SCH (21:10)
[2016-10-21] MEDS: RISPERIDONE 1 MG TAB GTB SCH (21:10)
[2016-10-22] VITALS (45 sets, daily range): BP systolic 94–145; BP diastolic 53–90; PULSE 91–126; RESP 15–33
[2016-10-22] MEDS: LEVALBUTEROL (HFA) 15 GM INHALER INH SCH ×4 (01:01→20:04)
[2016-10-22] MEDS: IPRATROPIUM (HFA) 12.9 GM INHALER INH SCH ×4 (01:01→20:04)
[2016-10-22] MEDS: HYDROmorphONE 1 MG/ML SYG IV PRN ×6 (01:10→22:47)
[2016-10-22 05:09] LABS: BASOPHILS % 0.2 % (0.0-2.0); EOSINOPHILS # 0.4 10^3/ul (0.0-0.5); EOSINOPHILS % 6.7 % (0.0-7.0); HEMATOCRIT 27.8 % (42.0-52.0); HEMOGLOBIN 8.3 g/dl (14.0-18.0); LYMPHOCYTES # 0.6 10^3/ul (0.8-2.9); LYMPHOCYTES % 11.5 % (15.0-51.0); MEAN CORPUSCULAR HEMOGLOBIN 30.2 pg (29.0-33.0); MEAN CORPUSCULAR HGB CONC 29.9 g/dl (32.0-37.0); MEAN CORPUSCULAR VOLUME 101.1 fl (82.0-101.0); MEAN PLATELET VOLUME 11.2 fl (7.4-10.4); MONOCYTE # 0.6 10^3/ul (0.3-0.9); MONOCYTES % 10.9 % (0.0-11.0); NEUTROPHIL # 3.7 10^3/ul (1.6-7.5); NEUTROPHILS % 70.3 % (39.0-77.0); PLATELET COUNT 116 10^3/UL (140-415); RED BLOOD COUNT 2.75 10^6/ul (4.70-6.10); RED CELL DISTRIBUTION WIDTH 14.7 % (11.5-14.5); WHITE BLOOD COUNT 5.2 10^3/ul (4.8-10.8)
[2016-10-22] MEDS: LANSOPRAZOLE 30 MG CAP GTB SCH (06:16)
[2016-10-22] MEDS: DEXTROSE 5%-0.45% NACL 1,000 ML IV SCH ×2 (06:18→14:27)
[2016-10-22 06:23] LABS: ALBUMIN 2.7 g/dl (3.3-4.9); ALBUMIN/GLOBULIN RATIO 0.72; BILIRUBIN,INDIRECT 0.1 mg/dl (0-1.1); BILIRUBIN,TOTAL 0.1 mg/dl (0.2-1.3); CALCIUM 8.7 mg/dl (8.4-10.2); CREATININE 1.42 mg/dl (0.61-1.24); TOTAL PROTEIN 6.4 g/dl (6.1-8.1)
--- NOTE | 2016-10-22 08:55 | CONS ---
Date/Time of Note Date/Time of Note DATE: 10/22/16 TIME: 08:49 Consult Date/Type/Reason Admit Date/Time Oct 21, 2016 at 15:46 Initial Consult Date 10/20/16 Type of Consultation: CARDIOLOGY Ordering Provider: JOSÉ ANTONIO MIRZA MD Subjective CARDIOLOGY FOLLOW UP NOTE SUBJECTIVE: D/W staff and rhythm was reviewed. pt remains in NSR/ Sinus tachy s/p trach on vent no reports of chest pain or pressure or palpitations OBJECTIVE; General: Thin man s/p trach. HEENT: NC/AT. pupils are equal. round. NECK:s/p trach. . no stridor. CV: RRR. systolic murmur; no gallop or rubs. PULM: no wheezing anteriorly. GI: SOFT, NT, ND, no rebound or guarding Extremity: trace B/L LE edema. no clubbing. neuro: awake and alert, . Psych: calm and pleasant rectal: deferred : normal echo EF 70% Objective Vital Signs Date Time Temp Pulse Resp B/P Pulse Ox O2 Delivery O2 Flow Rate FiO2 10/22/16 06:00 110 27 97/53 98 Mechanical Ventilator 10/22/16 05:04 45 10/22/16 04:00 98.4 Intake and Output 10/21/16 10/21/16 10/22/16 15:00 23:00 07:00 Intake Total 1430 ml 1945 ml 1255 ml Output Total 435 ml 1020 ml 660 ml Balance 995 ml 925 ml 595 ml Results/Medications Result Diagram: 10/22/16 0430 10/22/16 0430 Results 24 hrs Laboratory Tests Test 10/21/16 10:12 10/22/16 04:30 10/22/16 05:50 Blood Gas Specimen Source Blood arterial Arterial Blood Date Drawn 10/21/2016 11:00:49 AM Arterial Blood pH (Temp corrected) 7.403 Arterial Blood pCO2 (Temp correct) 46.6 H Arterial Blood pO2 (Temp corrected) 77.9 L Arterial Blood HCO3 28.4 H Arterial Blood Base Excess 3.3 H Arterial Blood Oxygen Saturation 95.7 Julito Test ACCEPTAB Arterial Blood Gas Puncture Site Right Radial Arterial Blood Carboxyhemoglobin 0.3 Arterial Blood Methemoglobin 0.5 Blood Gas A-a O2 Differential 153.7 H Oxyhemoglobin Percent 94.9 Total Hemoglobin 7.5 L Blood Gas Temperature 37.0 Blood Gas Respiration Rate 14.0 Blood Gas Actual Respiration Rate 23 Blood Gas Modality VENT - SIMV FiO2 40.0 Blood Gas Tidal Volume 500.0 Blood Gas Low PEEP Setting 5.0 Blood Gas Pressure Support 14 Blood Gas Notified Whom JLD Blood Gas Notified Time 10/21/2016 11:16:54 AM White Blood Count 5.2 Red Blood Count 2.75 L Hemoglobin 8.3 L Hematocrit 27.8 L Mean Corpuscular Volume 101.1 H Mean Corpuscular Hemoglobin 30.2 Mean Corpuscular Hemoglobin Concent 29.9 L Red Cell Distribution Width 14.7 H Platelet Count 116 L Mean Platelet Volume 11.2 H Neutrophils % 70.3 Lymphocytes % 11.5 L Monocytes % 10.9 Eosinophils % 6.7 Basophils % 0.2 Nucleated Red Blood Cells % 0.0 Neutrophils # 3.7 Lymphocytes # 0.6 L Monocytes # 0.6 Eosinophils # 0.4 Basophils # 0.0 Nucleated Red Blood Cells # 0.0 Sodium Level 147 H Potassium Level 4.0 Chloride Level 111 H Carbon Dioxide Level 29 Anion Gap 11 Blood Urea Nitrogen 46 #H Creatinine 1.42 H Glucose Level 111 Calcium Level 8.7 Total Bilirubin 0.1 L Direct Bilirubin 0.00 Indirect Bilirubin 0.1 Aspartate Amino Transf (AST/SGOT) 18 Alanine Aminotransferase (ALT/SGPT) 36 Alkaline Phosphatase 130 H Total Protein 6.4 Albumin 2.7 L Globulin 3.70 H Albumin/Globulin Ratio 0.72 Lab Scanned Report BLOOD TRANSFUSION Medications Current Medications Dextrose (D50w Syringe) ONCE PRN IV POC BLOOD GLUCOSE <250 MG/DL; Start at 06:00 Hydromorphone HCl (Dilaudid) 1 mg Q4H PRN IV PAIN Last administered on 04:46; Admin Dose 1 MG; Start 10/20/16 at 10:00 Acetaminophen (Tylenol Liquid) 650 mg Q4H PRN GTB MILD PAIN LEVEL 1-3; Start at 13:30 Ascorbic Acid (Vitamin C) 500 mg DAILY GTB Last administered on 10/21/16 09:39 ; Admin Dose 500 MG; Start 10/20/16 at 14:00 Bisacodyl (Dulcolax Supp) [address] CONSTIPATION; Start 10/20/16 at 13: 30 Citric Acid/ Sodium Citrate (Bicitra Liquid (Ped)) 10 meq TID GTB Last administered on 10/21/16 21:10; Admin Dose 10 MEQ; Start 10/20/16 at 21:00 Docusate Sodium (Colace Liquid Cup) 200 mg QHS GTB Last administered on 21:10; Admin Dose 200 MG; Start 10/20/16 at 21:00 Enoxaparin Sodium (Lovenox) 30 mg DAILY SC ; Start 10/21/16 at 09:00; Status Future Hold Ferrous Sulfate (Ferrous Sulfate) 330 mg DAILY GTB ; Start 10/21/16 at 09:00 Magnesium Hydroxide (Milk Of Mag) 30 ml DAILY PRN GTB CONSTIPATION; Start 10/20 at 13:30 Lansoprazole (Prevacid) 30 mg DAILY@06 GTB Last administered on 10/22/16 06:16 ; Admin Dose 30 MG; Start 10/21/16 at 06:00 Polyethylene Glycol (Miralax) 17 gm DAILY GTB Last administered on 10/21/16 09 :39; Admin Dose 17 GM; Start 10/20/16 at 13:30 Zinc Sulfate (Zinc Sulfate) 220 mg DAILY GTB Last administered on 10/21/16 09: 39; Admin Dose 220 MG; Start 10/21/16 at 09:00 Multivit/Ca Carb/ B Cmplx/FA/Prenat (Lilibeth-Linn) 1 tab DAILY GTB Last administered on 10/21/16 09:39; Admin Dose 1 TAB; Start 10/21/16 at 09:00 Acetaminophen/ Hydrocodone Bitart ([place] (5/325)) 1 tab Q6 PRN GTB PAIN LEVEL 1 -5; Start 10/20/16 at 14:00 Gabapentin (Neurontin Liquid) 100 mg TID GTB Last administered on 10/21/16 21: 10; Admin Dose 100 MG; Start 10/20/16 at 21:00 Risperidone (Risperdal) 1 mg QHS GTB Last administered on 10/21/16 21:10; Admin Dose 1 MG; Start 10/20/16 at 21:00 Ferrous Sulfate 300 mg 300 mg DAILY GTB Last administered on 10/21/16 09:38; Admin Dose 300 MG; Start 10/20/16 at 14:07 Meropenem/Sodium Chloride 50 ml @ 100 mls/hr Q12 IVPB Last administered on 21:10; Admin Dose 100 MLS/HR; Start 10/20/16 at 21:00 Vancomycin HCl/ Sodium Chloride (Vancocin/NS) 250 ml @ 83.333 mls/ hr Q48H IVPB ; Start 10/22/16 at 20:00 Miscellaneous Information (Pending [facility] Order For Wound Care) This patient noriega... PRN PRN XX WOUND CARE; Start 10/20/16 at 20:00 Zolpidem Tartrate 5 mg 5 mg HS PRN PO INSOMNIA Last administered on 10/21/16 21:10; Admin Dose 5 MG; Start 10/20/16 at 21:00 Norepinephrine 250 ml @ 1.875 mls/ hr TITRATE IV ; Start 10/20/16 at 21:00 Dextrose/Sodium Chloride (D5-1/2ns) 1,000 ml @ 70 mls/hr [id number] IV Last administered on 10/22/16 06:18; Admin Dose 70 MLS/HR; Start 10/21/16 at 09:30 Permethrin (Elimite 5% Cr) 1 applic Q7D TOP Last administered on 10/21/16 16: 35; Admin Dose 1 APPLIC; Start 10/21/16 at 16:00; Stop 10/28/16 at 16:01 Assessment/Plan Chief Complaint/Hosp Course 1. Sinus tachycardia/ hypotension 2. hypoxemic resp failure s/ ptrach 3. anemia 4. Renal insufficiency 5. scabies 6. Hyper Na cont vent support abx as per ID pt with normal EF ISOLATION for scabies and MRSA for now. off of BP MEDS. Problems: DELFIN HIGUERA MD Oct 22, 2016 08:55
[2016-10-22] MEDS: POLYETHYLENE GLYCOL 17 GM PACKET GTB SCH (09:00)
[2016-10-22] MEDS: MEROPENEM 500MG/50 ML (PMX) 50 ML IVPB SCH ×2 (09:20→22:47)
[2016-10-22] MEDS: MULTIVIT/CA CARB/B CMPLX/FA TAB GTB SCH (09:21)
[2016-10-22] MEDS: CITRIC ACID/NA CIT (1 MEQ/ML POSYG) GTB SCH ×3 (09:22→21:37)
[2016-10-22] MEDS: FERROUS SULFATE 60 MG/ML 5ML CUP GTB SCH (09:22)
[2016-10-22] MEDS: ASCORBIC ACID 500 MG TAB GTB SCH (09:22)
[2016-10-22] MEDS: ZINC SULFATE 220 MG CAP GTB SCH (09:22)
--- NOTE | 2016-10-22 09:55 | PN ---
DATE: 10/22/2016 SUBJECTIVE DATA: The patient is in ICU on the ventilator support through tracheostomy. OBJECTIVE DATA: VITAL SIGNS: Stable. Blood pressure 97/53, pulse rate 110 with sinus tachycardia. Respiratory rate is 27. Pulse oximetry shows 98 percent saturation with 40 percent oxygen concentration. His temperature is 98.4, and he has not had any significant temperature spikes. GENERAL: The patient is awake, responsive. He verbalize with minimal through the tracheostomy. NECK: Tracheal secretions are minimal, and appear to be clear. Yesterday, he was noted to have some tracheal bleeding, which has stopped. CHEST: Breath sounds are heard bilaterally, diminished in the lower lung tierney with a few crepitant rales and rhonchi. ABDOMEN: Soft, nondistended. He is tolerating gastrostomy tube feedings. Bowel sounds are normally heard. CARDIAC: Sinus tachycardia. EXTREMITIES: Show no edema. He is a paraplegic. LABORATORY AND DIAGNOSTIC DATA: Today shows WBC 5200, hemoglobin 8.3, hematocrit 27.8. Platelets are decreased to 116,000. The chemistry panel shows sodium 147, potassium 4, bicarbonate 29. BUN is 46, creatinine 1.42. He has underlying chronic kidney disease, and his BUN/creatinine are normalized completely. The arterial blood gases from yesterday show pH 7.40, PCO2 46, PO2 77 on 40 percent oxygen with a rate of 14 and PEEP of 5. The chest x-ray taken yesterday showed probable bilateral pleural effusions, right greater than left, with no significant change compared to the previous x-ray film taken in September during his earlier admission. Culture results so far are negative. IMPRESSION: 1. Chronic ventilator-dependent respiratory failure. 2. Rule out sepsis. 3. Chronic kidney disease. 4. Hyperkalemia, resolved. 5. Chronic anemia. 6. Chronic bilateral pleural effusions. 7. 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 PLAN: 1. Continue long-term ventilator support. 2. Continue antibiotics as per the recommendation of the infectious disease document management consultant. Continue pulmonary toilet with bronchodilator inhalation therapy. Use red rubber catheter for 3. suctioning to avoid tracheal mucus or trauma and ice cold saline lavage if tracheal bleeding continues. As of now, tracheal bleeding seems to have stopped. 4. Continue gastrostomy tube feedings. Dictated By: Palmer Ames MD /sera/balta /Document#: [id number]
[2016-10-22] MEDS: GABAPENTIN (50 MG/ML PO SYG) GTB SCH ×3 (10:44→21:35)
--- NOTE | 2016-10-22 11:22 | PN ---
Date/Time of Note Date/Time of Note DATE: 10/22/16 TIME: 11:22 Assessment/Plan VTE Prophylaxis VTE Prophylaxis Intervention: other Lines/Catheters IV Catheter Type (from Nrsg): PICC Line Central line still needed: Yes Urinary Cath still in place: Yes (Suprapubic catheter in place) Reason Cath still needed: skin wounds contaminated by urine Assessment/Plan Chief Complaint/Hosp Course -Hypotension- cont in ICU -- Rash, rule out scabies. -Hyperkalemia-potassium4,8 -Nephrology follows-Dr. Paul Barker -We will do a BMP follow-up results -Acute renal failure -Nephrology follows -Chronic TVRF -Pulmonary consult, Dr. Smyth was notified -Aspiration precautions -SP post suprapubic catheter-infected -Allergy consult, Dr. Shawn Urias notified -ID consult, Dr. Maciel's [employer] near notified -Tachycardia, history of intermittent Mobitz 1, history of preserved EF -Cardiology consult, Dr. John bolanos notified -[id number] is able to take p.o. -Aspiration precautions - History of obstructive uropathy status post JJ stent placement on the left. - Paraplegia and neurogenic bladder. Problems: Subjective 24 Hr Interval Summary Free Text/Dictation Patient complain of continued pain, breathing without difficulty, trach in place Exam/Review of Systems Vital Signs Vitals Vital Signs Date Time Temp Pulse Resp B/P Pulse Ox O2 Delivery O2 Flow Rate FiO2 10/22/16 09:30 115 21 97 10/22/16 09:00 122/79 Mechanical Ventilator 10/22/16 08:00 40 10/22/16 08:00 99.0 Intake and Output 10/21/16 10/21/16 10/22/16 15:00 23:00 07:00 Intake Total 1430 ml 1945 ml 1380 ml Output Total 435 ml 1020 ml 660 ml Balance 995 ml 925 ml 720 ml Exam Constitutional: well developed Head: atraumatic, normocephalic Neck: supple Respiratory: clear to auscultation Cardiovascular: regular rate and rhythm Gastrointestinal: non-tender, soft Extremities: normal pulses Results Result Diagram: 10/22/16 0430 10/22/16 0430 Results 24 hrs Laboratory Tests Test 10/22/16 04:30 10/22/16 05:50 White Blood Count 5.2 Red Blood Count 2.75 L Hemoglobin 8.3 L Hematocrit 27.8 L Mean Corpuscular Volume 101.1 H Mean Corpuscular Hemoglobin 30.2 Mean Corpuscular Hemoglobin Concent 29.9 L Red Cell Distribution Width 14.7 H Platelet Count 116 L Mean Platelet Volume 11.2 H Neutrophils % 70.3 Lymphocytes % 11.5 L Monocytes % 10.9 Eosinophils % 6.7 Basophils % 0.2 Nucleated Red Blood Cells % 0.0 Neutrophils # 3.7 Lymphocytes # 0.6 L Monocytes # 0.6 Eosinophils # 0.4 Basophils # 0.0 Nucleated Red Blood Cells # 0.0 Sodium Level 147 H Potassium Level 4.0 Chloride Level 111 H Carbon Dioxide Level 29 Anion Gap 11 Blood Urea Nitrogen 46 #H Creatinine 1.42 H Glucose Level 111 Calcium Level 8.7 Total Bilirubin 0.1 L Direct Bilirubin 0.00 Indirect Bilirubin 0.1 Aspartate Amino Transf (AST/SGOT) 18 Alanine Aminotransferase (ALT/SGPT) 36 Alkaline Phosphatase 130 H Total Protein 6.4 Albumin 2.7 L Globulin 3.70 H Albumin/Globulin Ratio 0.72 Lab Scanned Report BLOOD TRANSFUSION Medications Medications Current Medications Dextrose (D50w Syringe) ONCE PRN IV POC BLOOD GLUCOSE <250 MG/DL; Start at 06:00 Hydromorphone HCl (Dilaudid) 1 mg Q4H PRN IV PAIN Last administered on 09:20; Admin Dose 1 MG; Start 10/20/16 at 10:00 Acetaminophen (Tylenol Liquid) 650 mg Q4H PRN GTB MILD PAIN LEVEL 1-3; Start at 13:30 Ascorbic Acid (Vitamin C) 500 mg DAILY GTB Last administered on 10/22/16 09:22 ; Admin Dose 500 MG; Start 10/20/16 at 14:00 Bisacodyl (Dulcolax Supp) 10 mg Q24H PRN [place] CONSTIPATION; Start 10/20/16 at 13: 30 Citric Acid/ Sodium Citrate (Bicitra Liquid (Ped)) 10 meq TID GTB Last administered on 10/22/16 09:22; Admin Dose 10 MEQ; Start 10/20/16 at 21:00 Docusate Sodium (Colace Liquid Cup) 200 mg QHS GTB Last administered on 21:10; Admin Dose 200 MG; Start 10/20/16 at 21:00 Enoxaparin Sodium (Lovenox) 30 mg DAILY SC ; Start 10/21/16 at 09:00; Status Future Hold Magnesium Hydroxide (Milk Of Mag) 30 ml DAILY PRN GTB CONSTIPATION; Start 10/20 at 13:30 Lansoprazole (Prevacid) 30 mg DAILY@06 GTB Last administered on 10/22/16 06:16 ; Admin Dose 30 MG; Start 10/21/16 at 06:00 Polyethylene Glycol (Miralax) 17 gm DAILY GTB Last administered on 10/21/16 09 :39; Admin Dose 17 GM; Start 10/20/16 at 13:30 Zinc Sulfate (Zinc Sulfate) 220 mg DAILY GTB Last administered on 10/22/16 09: 22; Admin Dose 220 MG; Start 10/21/16 at 09:00 Multivit/Ca Carb/ B Cmplx/FA/Prenat (Lilibeth-L[place]) 1 tab DAILY GTB Last administered on 10/22/16 09:21; Admin Dose 1 TAB; Start 10/21/16 at 09:00 Acetaminophen/ Hydrocodone Bitart ([place] (5/325)) 1 tab Q6 PRN GTB PAIN LEVEL 1 -5; Start 10/20/16 at 14:00 Gabapentin (Neurontin Liquid) 100 mg TID GTB Last administered on 10/22/16 10: 44; Admin Dose 100 MG; Start 10/20/16 at 21:00 Risperidone (Risperdal) 1 mg QHS GTB Last administered on 10/21/16 21:10; Admin Dose 1 MG; Start 10/20/16 at 21:00 Ferrous Sulfate 300 mg 300 mg DAILY GTB Last administered on 10/22/16 09:22; Admin Dose 300 MG; Start 10/20/16 at 14:07 Meropenem/Sodium Chloride 50 ml @ 100 mls/hr Q12 IVPB Last administered on 09:20; Admin Dose 100 MLS/HR; Start 10/20/16 at 21:00 Vancomycin HCl/ Sodium Chloride (Vancocin/NS) 250 ml @ 83.333 mls/ hr Q48H IVPB ; Start 10/22/16 at 20:00 Miscellaneous Information (Pending Santyl Order For Wound Care) This patient noriega... PRN PRN XX WOUND CARE; Start 10/20/16 at 20:00 Zolpidem Tartrate 5 mg 5 mg HS PRN PO INSOMNIA Last administered on 10/21/16 21:10; Admin Dose 5 MG; Start 10/20/16 at 21:00 Norepinephrine 250 ml @ 1.875 mls/ hr TITRATE IV ; Start 10/20/16 at 21:00 Dextrose/Sodium Chloride (D5-1/2ns) 1,000 ml @ 70 mls/hr [id number] IV Last administered on 10/22/16 06:18; Admin Dose 70 MLS/HR; Start 10/21/16 at 09:30 Permethrin (Elimite 5% Cr) 1 applic Q7D TOP Last administered on 10/21/16 16: 35; Admin Dose 1 APPLIC; Start 10/21/16 at 16:00; Stop 10/28/16 at 16:01 DANAY MUIR Oct 22, 2016 11:22
--- NOTE | 2016-10-22 12:40 | CONS ---
Date/Time of Note Date/Time of Note DATE: 10/22/16 TIME: 12:20 Assessment/Plan Assessment/Plan Chief Complaint/Hosp Course ID PROGRESS NOTE TOTAL ABX DAY # CURRENT ABX=> Vanco IV + Merrem 24H INTERVAL SUMMARY * Awake, alert, responsive, watching TV, doing well, no c/o, VSS, Tmax 99.0 * (+)Scabies Lesion from the right leg and thigh, scrapings: -- Positive for Sarcoptes scabiei parasitic organisms. -- Keratin material and hair segments with rare blood cells are present. EXAM GENERAL: 41 yo M, A/A/O, VSS, NAD HEENT: Unremarkable NECK: (+)Trach-> secure to Vent CHEST: Course ABDOMEN: Soft, NT EXTREMITIES: WArm, no edema SKIN: No diaphoresis, no rash ID ASSESSMENT: 41 yo M w/ PMHx SCI with paraplegia, chronic trach, neurogenic bladder admit [facility] ICU with: 1. Sepsis possibly secondary to HCAP @ SNF vs urinary tract infection, recurrent. 2. Worsening aeration of the lung bases, likely due to bilateral pleural effusions, right greater than left. 3. Chronic VDRF 4. Acute on chronic kidney disease w/Hyperkalemia on admission = resolved 5. Hx of right nephrectomy with left renal nephrolithiasis and a left renal cyst measuring 5.3 cm in size. 6. Suprapubic catheter -> due to neurogenic bladder + #5 7. History of obstructive uropathy status post JJ stent placement on the left. 8. Multiple Decubs -> See chart photos 9. Rash=> (+)Scabies Lesion from the right leg and thigh, scrapings: -- Positive for Sarcoptes scabiei parasitic organisms. -- Keratin material and hair segments with rare blood cells are present. (+)MRSA Nares -> Bactroban INVASIVES: Peg, trach, PI:V, suprapubic ABX ALLERGY: Tetracycline TOTAL ABX DAY # CURRENT ABX=> => Vanco IV + Merrem ID PLAN 1. Continue current ABX + start Bactroban to bilateral nares 2. Will Rx Ivermectin due to high rates of failure to respond to elimite when open wound present. Problems: Consultation Date/Type/Reason Admit Date/Time Oct 21, 2016 at 15:46 Initial Consult Date 10/20/16 Type of Consultation: ID Referring Provider: JOSÉ ANTONIO MIRZA MD Exam/Review of Systems Vital Signs Vitals Vital Signs Date Time Temp Pulse Resp B/P Pulse Ox O2 Delivery O2 Flow Rate FiO2 10/22/16 09:30 115 21 97 10/22/16 09:00 122/79 Mechanical Ventilator 10/22/16 08:00 40 10/22/16 08:00 99.0 Intake and Output 10/21/16 10/21/16 10/22/16 15:00 23:00 07:00 Intake Total 1430 ml 1945 ml 1380 ml Output Total 435 ml 1020 ml 660 ml Balance 995 ml 925 ml 720 ml Results Result Diagram: 10/22/16 0430 10/22/16 0430 Results 24 hrs Laboratory Tests Test 10/22/16 04:30 10/22/16 05:50 White Blood Count 5.2 Red Blood Count 2.75 L Hemoglobin 8.3 L Hematocrit 27.8 L Mean Corpuscular Volume 101.1 H Mean Corpuscular Hemoglobin 30.2 Mean Corpuscular Hemoglobin Concent 29.9 L Red Cell Distribution Width 14.7 H Platelet Count 116 L Mean Platelet Volume 11.2 H Neutrophils % 70.3 Lymphocytes % 11.5 L Monocytes % 10.9 Eosinophils % 6.7 Basophils % 0.2 Nucleated Red Blood Cells % 0.0 Neutrophils # 3.7 Lymphocytes # 0.6 L Monocytes # 0.6 Eosinophils # 0.4 Basophils # 0.0 Nucleated Red Blood Cells # 0.0 Sodium Level 147 H Potassium Level 4.0 Chloride Level 111 H Carbon Dioxide Level 29 Anion Gap 11 Blood Urea Nitrogen 46 #H Creatinine 1.42 H Glucose Level 111 Calcium Level 8.7 Total Bilirubin 0.1 L Direct Bilirubin 0.00 Indirect Bilirubin 0.1 Aspartate Amino Transf (AST/SGOT) 18 Alanine Aminotransferase (ALT/SGPT) 36 Alkaline Phosphatase 130 H Total Protein 6.4 Albumin 2.7 L Globulin 3.70 H Albumin/Globulin Ratio 0.72 Lab Scanned Report BLOOD TRANSFUSION Medications Medications Current Medications Dextrose (D50w Syringe) ONCE PRN IV POC BLOOD GLUCOSE <250 MG/DL; Start at 06:00 Hydromorphone HCl (Dilaudid) 1 mg Q4H PRN IV PAIN Last administered on t 09:20; Admin Dose 1 MG; Start 10/20/16 at 10:00 Acetaminophen (Tylenol Liquid) 650 mg Q4H PRN GTB MILD PAIN LEVEL 1-3; Start at 13:30 Ascorbic Acid (Vitamin C) 500 mg DAILY GTB Last administered on 10/22/16 09:22 ; Admin Dose 500 MG; Start 10/20/16 at 14:00 Bisacodyl (Dulcolax Supp) 10 mg Q24H PRN [place] CONSTIPATION; Start 10/20/16 at 13: 30 Citric Acid/ Sodium Citrate (Bicitra Liquid (Ped)) 10 meq TID GTB Last administered on 10/22/16 09:22; Admin Dose 10 MEQ; Start 10/20/16 at 21:00 Docusate Sodium (Colace Liquid Cup) 200 mg QHS GTB Last administered on 21:10; Admin Dose 200 MG; Start 10/20/16 at 21:00 Enoxaparin Sodium (Lovenox) 30 mg DAILY SC ; Start 10/21/16 at 09:00; Status Future Hold Magnesium Hydroxide (Milk Of Mag) 30 ml DAILY PRN GTB CONSTIPATION; Start 10/20 at 13:30 Lansoprazole (Prevacid) 30 mg DAILY@06 GTB Last administered on 10/22/16 06:16 ; Admin Dose 30 MG; Start 10/21/16 at 06:00 Polyethylene Glycol (Miralax) 17 gm DAILY GTB Last administered on 10/21/16 09 :39; Admin Dose 17 GM; Start 10/20/16 at 13:30 Zinc Sulfate (Zinc Sulfate) 220 mg DAILY GTB Last administered on 10/22/16 09: 22; Admin Dose 220 MG; Start 10/21/16 at 09:00 Multivit/Ca Carb/ B Cmplx/FA/Prenat (Lilibeth-Linn) 1 tab DAILY GTB Last administered on 10/22/16 09:21; Admin Dose 1 TAB; Start 10/21/16 at 09:00 Acetaminophen/ Hydrocodone Bitart ([place] (5/325)) 1 tab Q6 PRN GTB PAIN LEVEL 1 -5; Start 10/20/16 at 14:00 Gabapentin (Neurontin Liquid) 100 mg TID GTB Last administered on 10/22/16 10: 44; Admin Dose 100 MG; Start 10/20/16 at 21:00 Risperidone (Risperdal) 1 mg QHS GTB Last administered on 10/21/16 21:10; Admin Dose 1 MG; Start 10/20/16 at 21:00 Ferrous Sulfate 300 mg 300 mg DAILY GTB Last administered on 10/22/16 09:22; Admin Dose 300 MG; Start 10/20/16 at 14:07 Meropenem/Sodium Chloride 50 ml @ 100 mls/hr Q12 IVPB Last administered on 09:20; Admin Dose 100 MLS/HR; Start 10/20/16 at 21:00 Vancomycin HCl/ Sodium Chloride (Vancocin/NS) 250 ml @ 83.333 mls/ hr Q48H IVPB ; Start 10/22/16 at 20:00 Miscellaneous Information (Pending [facility] Order For Wound Care) This patient noriega... PRN PRN XX WOUND CARE; Start 10/20/16 at 20:00 Zolpidem Tartrate 5 mg 5 mg HS PRN PO INSOMNIA Last administered on 10/21/16 21:10; Admin Dose 5 MG; Start 10/20/16 at 21:00 Norepinephrine 250 ml @ 1.875 mls/ hr TITRATE IV ; Start 10/20/16 at 21:00 Dextrose/Sodium Chloride (D5-1/2ns) 1,000 ml @ 70 mls/hr [id number] IV Last administered on 10/22/16 06:18; Admin Dose 70 MLS/HR; Start 10/21/16 at 09:30 Permethrin (Elimite 5% Cr) 1 applic Q7D TOP Last administered on 10/21/16 16: 35; Admin Dose 1 APPLIC; Start 10/21/16 at 16:00; Stop 10/28/16 at 16:01 KELSI CERDA NP Oct 22, 2016 12:30
[2016-10-22] MEDS: IVERMECTIN 3 MG TAB PO SCH (13:18)
[2016-10-22] MEDS ORDERED: SOD CHLORIDE 0.9% 1,000 ML IV SCH (14:00)
--- NOTE | 2016-10-22 14:33 | PN ---
Date/Time of Note Date/Time of Note DATE: 10/22/16 TIME: 14:24 Assessment/Plan VTE Prophylaxis VTE Prophylaxis Intervention: other Lines/Catheters IV Catheter Type (from [facility]): PICC Line Central line still needed: Yes Urinary Cath still in place: Yes (Suprapubic catheter in place) Reason Cath still needed: urinary retention, other (indicate) (Neurogenic bladder) Assessment/Plan Chief Complaint/Hosp Course This is a 40-year-old male who was admitted to the hospital from a nursing facility because of hypoxemia. 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 Patient has a tracheostomy and also has a suprapubic tube. Patient has had a right nephrectomy. He only has a left kidney and KUB and CT scan showed that he has a JJ stent. The CT scan showed the JJ stent to be in good place with stones in the lower pole of the left kidney and the stent appeared to be in good position. I talked to the patient and he said he has had it for over 1 year and it was inserted for him in a hospital in [place] For now we will keep the suprapubic tube in place and we have to plan to do a cystoscopy most likely through the suprapubic tract or through the urethra if it is open to see if we could remove and may be replace the ureteral JJ stent or just remove it.That will depend on the findings at the time of the cystoscopy. Problems: Subjective 24 Hr Interval Summary Free Text/Dictation Patient is alert and appears to be comfortable, I did talk to him and discussed with him the issues of him having the JJ stent for over 1 year, the renal stones , the suprapubic tube, the need to remove and or replace the JJ stent and the challenges that we encounter to do it because of the suprapubic tube and his contractures and whether the urethra is wide open or not. He states that his urethra should be okay as he was using it before. At the present he is being managed for the scabies and the infection. I also called his mother on the phone listed on the face sheet but her phone was busy I discussed with him that and he said his mother takes care of him and he would want me to talk to her as well. Constitutional: No chills Eyes: no complaints ENT: no complaints Respiratory: other (Patient is on respirator) Cardiovascular: No chest pain Gastrointestinal: no complaints Genitourinary: other (Suprapubic tube) Skin: other (Bedsores, he is getting wound care) Exam/Review of Systems Vital Signs Vitals Vital Signs Date Time Temp Pulse Resp B/P Pulse Ox O2 Delivery O2 Flow Rate FiO2 10/22/16 14:00 110 23 111/81 97 Mechanical Ventilator 10/22/16 12:00 98.3 10/22/16 11:30 40 Intake and Output 10/21/16 10/21/16 10/22/16 15:00 23:00 07:00 Intake Total 1430 ml 1945 ml 1380 ml Output Total 435 ml 1020 ml 660 ml Balance 995 ml 925 ml 720 ml Exam Constitutional: alert Psych: no complaints Eyes: nl conjunctiva ENMT: nl external ears & nose Neck: other (Has the tracheostomy), supple Respiratory: other (Patient on respirator) Cardiovascular: No edema Gastrointestinal: soft Genitourinary - Male: other (The pubic tube draining clear urine) Results Result Diagram: 10/22/16 0430 10/22/16 0430 Results 24 hrs Laboratory Tests Test 10/22/16 04:30 10/22/16 05:50 White Blood Count 5.2 Red Blood Count 2.75 L Hemoglobin 8.3 L Hematocrit 27.8 L Mean Corpuscular Volume 101.1 H Mean Corpuscular Hemoglobin 30.2 Mean Corpuscular Hemoglobin Concent 29.9 L Red Cell Distribution Width 14.7 H Platelet Count 116 L Mean Platelet Volume 11.2 H Neutrophils % 70.3 Lymphocytes % 11.5 L Monocytes % 10.9 Eosinophils % 6.7 Basophils % 0.2 Nucleated Red Blood Cells % 0.0 Neutrophils # 3.7 Lymphocytes # 0.6 L Monocytes # 0.6 Eosinophils # 0.4 Basophils # 0.0 Nucleated Red Blood Cells # 0.0 Sodium Level 147 H Potassium Level 4.0 Chloride Level 111 H Carbon Dioxide Level 29 Anion Gap 11 Blood Urea Nitrogen 46 #H Creatinine 1.42 H Glucose Level 111 Calcium Level 8.7 Total Bilirubin 0.1 L Direct Bilirubin 0.00 Indirect Bilirubin 0.1 Aspartate Amino Transf (AST/SGOT) 18 Alanine Aminotransferase (ALT/SGPT) 36 Alkaline Phosphatase 130 H Total Protein 6.4 Albumin 2.7 L Globulin 3.70 H Albumin/Globulin Ratio 0.72 Lab Scanned Report BLOOD TRANSFUSION Medications Medications Current Medications Dextrose (D50w Syringe) ONCE PRN IV POC BLOOD GLUCOSE <250 MG/DL; Start at 06:00 Hydromorphone HCl (Dilaudid) 1 mg Q4H PRN IV PAIN Last administered on 13:18; Admin Dose 1 MG; Start 10/20/16 at 10:00 Acetaminophen (Tylenol Liquid) 650 mg Q4H PRN GTB MILD PAIN LEVEL 1-3; Start at 13:30 Ascorbic Acid (Vitamin C) 500 mg DAILY GTB Last administered on 10/22/16 09:22 ; Admin Dose 500 MG; Start 10/20/16 at 14:00 Bisacodyl (Dulcolax Supp) 10 mg Q24H PRN [place] CONSTIPATION; Start 10/20/16 at 13: 30 Citric Acid/ Sodium Citrate (Bicitra Liquid (Ped)) 10 meq TID GTB Last administered on 10/22/16 13:18; Admin Dose 10 MEQ; Start 10/20/16 at 21:00 Docusate Sodium (Colace Liquid Cup) 200 mg QHS GTB Last administered on 21:10; Admin Dose 200 MG; Start 10/20/16 at 21:00 Enoxaparin Sodium (Lovenox) 30 mg DAILY SC ; Start 10/21/16 at 09:00; Status Future Hold Magnesium Hydroxide (Milk Of Mag) 30 ml DAILY PRN GTB CONSTIPATION; Start 10/20 at 13:30 Lansoprazole (Prevacid) 30 mg DAILY@06 GTB Last administered on 10/22/16 06:16 ; Admin Dose 30 MG; Start 10/21/16 at 06:00 Polyethylene Glycol (Miralax) 17 gm DAILY GTB Last administered on 10/21/16 09 :39; Admin Dose 17 GM; Start 10/20/16 at 13:30 Zinc Sulfate (Zinc Sulfate) 220 mg DAILY GTB Last administered on 10/22/16 09: 22; Admin Dose 220 MG; Start 10/21/16 at 09:00 Multivit/Ca Carb/ B Cmplx/FA/Prenat (Lilibeth-Linn) 1 tab DAILY GTB Last administered on 10/22/16 09:21; Admin Dose 1 TAB; Start 10/21/16 at 09:00 Acetaminophen/ Hydrocodone Bitart ([place] (5/325)) 1 tab Q6 PRN GTB PAIN LEVEL 1 -5; Start 10/20/16 at 14:00 Gabapentin (Neurontin Liquid) 100 mg TID GTB Last administered on 10/22/16 13: 24; Admin Dose 100 MG; Start 10/20/16 at 21:00 Risperidone (Risperdal) 1 mg QHS GTB Last administered on 10/21/16 21:10; Admin Dose 1 MG; Start 10/20/16 at 21:00 Ferrous Sulfate 300 mg 300 mg DAILY GTB Last administered on 10/22/16 09:22; Admin Dose 300 MG; Start 10/20/16 at 14:07 Meropenem/Sodium Chloride 50 ml @ 100 mls/hr Q12 IVPB Last administered on 09:20; Admin Dose 100 MLS/HR; Start 10/20/16 at 21:00 Vancomycin HCl/ Sodium Chloride (Vancocin/NS) 250 ml @ 83.333 mls/ hr Q48H IVPB ; Start 10/22/16 at 20:00 Miscellaneous Information (Pending [facility] Order For Wound Care) This patient noriega... PRN PRN XX WOUND CARE; Start 10/20/16 at 20:00 Zolpidem Tartrate 5 mg 5 mg HS PRN PO INSOMNIA Last administered on 10/21/16 21:10; Admin Dose 5 MG; Start 10/20/16 at 21:00 Norepinephrine (Levophed) 250 ml @ 1.875 mls/ hr TITRATE IV ; Start 10/20/16 at 21:00 Permethrin (Elimite 5% Cr) 1 applic Q7D TOP Last administered on 10/21/16 16: 35; Admin Dose 1 APPLIC; Start 10/21/16 at 16:00; Stop 10/28/16 at 16:01 Mupirocin (Bactroban) 1 applic BID TOP ; Start 10/22/16 at 21:00 Ivermectin 12 mg 12 mg Q7D PO Last administered on 10/22/16 13:18; Admin Dose 12 MG; Start 10/22/16 at 13:00; Stop 10/29/16 at 13:01 Sodium Chloride (NS) 1,000 ml @ 70 mls/hr [id number] IV Last administered on 10/22t 13:46; Admin Dose 70 MLS/HR; Start 10/22/16 at 14:00 BHARGAV JIANG MD Oct 22, 2016 14:33
--- NOTE | 2016-10-22 19:40 | CONS ---
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 The patient says he has pain all over and has chronic pain. Other than that he has no symptoms. He says he has no cough no vomiting or diarrhea.He is noted to have acute kidney injury, Hyperkalemia, renal has been consulted for BELINDA. Problems: Additional Assessment/Plan 1. Acute kidney injury secondary to severe prerenal azotemia and possible acute tubular necrosis. HD=6805/24 Hrs 2. Acute uremia with a BUN of 46, Cr 1.42.- slowly improving with D5W 3. Acute hyperkalemia- resolved 5. 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 6. History of neurogenic bladder with urinary retention, status post suprapubic catheter. 7. History of previous recurrent urinary tract infections. 8. 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 9. 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 10. Other medical history includes anxiety, depression, bipolar disorder, psychosis. 11. History of right nephrectomy with left renal nephrolithiasis and a left renal cyst measuring 5.3 cm in size. Plan: - Transferred to [facility] today -renal function to improving with IV fluids.Cont - - BP stable - will follow up Dw Dr Paul Barker/staff Consultation Date/Type/Reason Admit Date/Time Oct 21, 2016 at 15:46 Initial Consult Date 10/20/16 Type of Consultation: ID Referring Provider: JOSÉ ANTONIO MIRZA MD 24 HR Interval Summary Constitutional: requiring IVF, requiring O2 Exam/Review of Systems Vital Signs Vitals Vital Signs Date Time Temp Pulse Resp B/P Pulse Ox O2 Delivery O2 Flow Rate FiO2 10/22/16 18:12 113 10/22/16 17:55 98.2 24 145/90 93 10/22/16 16:50 30 10/22/16 16:00 Mechanical Ventilator Intake and Output 10/21/16 10/21/16 10/22/16 15:00 23:00 07:00 Intake Total 1430 ml 1945 ml 1380 ml Output Total 435 ml 1020 ml 660 ml Balance 995 ml 925 ml 720 ml Exam Constitutional: alert Results Result Diagram: 10/22/16 0430 10/22/16 0430 Results 24 hrs Laboratory Tests Test 10/22/16 04:30 10/22/16 05:50 White Blood Count 5.2 Red Blood Count 2.75 L Hemoglobin 8.3 L Hematocrit 27.8 L Mean Corpuscular Volume 101.1 H Mean Corpuscular Hemoglobin 30.2 Mean Corpuscular Hemoglobin Concent 29.9 L Red Cell Distribution Width 14.7 H Platelet Count 116 L Mean Platelet Volume 11.2 H Neutrophils % 70.3 Lymphocytes % 11.5 L Monocytes % 10.9 Eosinophils % 6.7 Basophils % 0.2 Nucleated Red Blood Cells % 0.0 Neutrophils # 3.7 Lymphocytes # 0.6 L Monocytes # 0.6 Eosinophils # 0.4 Basophils # 0.0 Nucleated Red Blood Cells # 0.0 Sodium Level 147 H Potassium Level 4.0 Chloride Level 111 H Carbon Dioxide Level 29 Anion Gap 11 Blood Urea Nitrogen 46 #H Creatinine 1.42 H Glucose Level 111 Calcium Level 8.7 Total Bilirubin 0.1 L Direct Bilirubin 0.00 Indirect Bilirubin 0.1 Aspartate Amino Transf (AST/SGOT) 18 Alanine Aminotransferase (ALT/SGPT) 36 Alkaline Phosphatase 130 H Total Protein 6.4 Albumin 2.7 L Globulin 3.70 H Albumin/Globulin Ratio 0.72 Lab Scanned Report BLOOD TRANSFUSION Medications Medications Current Medications Dextrose (D50w Syringe) ONCE PRN IV POC BLOOD GLUCOSE <250 MG/DL; Start at 06:00 Hydromorphone HCl (Dilaudid) 1 mg Q4H PRN IV PAIN Last administered on 18:21; Admin Dose 1 MG; Start 10/20/16 at 10:00 Acetaminophen (Tylenol Liquid) 650 mg Q4H PRN GTB MILD PAIN LEVEL 1-3; Start at 13:30 Ascorbic Acid (Vitamin C) 500 mg DAILY GTB Last administered on 10/22/16 09:22 ; Admin Dose 500 MG; Start 10/20/16 at 14:00 Bisacodyl (Dulcolax Supp) 10 mg Q24H PRN [place] CONSTIPATION; Start 10/20/16 at 13: 30 Citric Acid/ Sodium Citrate (Bicitra Liquid (Ped)) 10 meq TID GTB Last administered on 10/22/16 13:18; Admin Dose 10 MEQ; Start 10/20/16 at 21:00 Docusate Sodium (Colace Liquid Cup) 200 mg QHS GTB Last administered on 21:10; Admin Dose 200 MG; Start 10/20/16 at 21:00 Enoxaparin Sodium (Lovenox) 30 mg DAILY SC ; Start 10/21/16 at 09:00; Status Future Hold Magnesium Hydroxide (Milk Of Mag) 30 ml DAILY PRN GTB CONSTIPATION; Start 10/20 at 13:30 Lansoprazole (Prevacid) 30 mg DAILY@06 GTB Last administered on 10/22/16 06:16 ; Admin Dose 30 MG; Start 10/21/16 at 06:00 Polyethylene Glycol (Miralax) 17 gm DAILY GTB Last administered on 10/21/16 09 :39; Admin Dose 17 GM; Start 10/20/16 at 13:30 Zinc Sulfate (Zinc Sulfate) 220 mg DAILY GTB Last administered on 10/22/16 09: 22; Admin Dose 220 MG; Start 10/21/16 at 09:00 Multivit/Ca Carb/ B Cmplx/FA/Prenat (Lilibeth-Linn) 1 tab DAILY GTB Last administered on 10/22/16 09:21; Admin Dose 1 TAB; Start 10/21/16 at 09:00 Acetaminophen/ Hydrocodone Bitart ([place] (5/325)) 1 tab Q6 PRN GTB PAIN LEVEL 1 -5; Start 10/20/16 at 14:00 Gabapentin (Neurontin Liquid) 100 mg TID GTB Last administered on 10/22/16 13: 24; Admin Dose 100 MG; Start 10/20/16 at 21:00 Risperidone (Risperdal) 1 mg QHS GTB Last administered on 10/21/16 21:10; Admin Dose 1 MG; Start 10/20/16 at 21:00 Ferrous Sulfate 300 mg 300 mg DAILY GTB Last administered on 10/22/16 09:22; Admin Dose 300 MG; Start 10/20/16 at 14:07 Meropenem/Sodium Chloride 50 ml @ 100 mls/hr Q12 IVPB Last administered on 09:20; Admin Dose 100 MLS/HR; Start 10/20/16 at 21:00 Vancomycin HCl/ Sodium Chloride (Vancocin/NS) 250 ml @ 83.333 mls/ hr Q48H IVPB ; Start 10/22/16 at 20:00 Miscellaneous Information (Pending [facility] Order For Wound Care) This patient noriega... PRN PRN XX WOUND CARE; Start 10/20/16 at 20:00 Zolpidem Tartrate 5 mg 5 mg HS PRN PO INSOMNIA Last administered on 10/21/16 21:10; Admin Dose 5 MG; Start 10/20/16 at 21:00 Norepinephrine (Levophed) 250 ml @ 1.875 mls/ hr TITRATE IV ; Start 10/20/16 at 21:00 Permethrin (Elimite 5% Cr) 1 applic Q7D TOP Last administered on 10/21/16 16: 35; Admin Dose 1 APPLIC; Start 10/21/16 at 16:00; Stop 10/28/16 at 16:01 Mupirocin (Bactroban) 1 applic BID TOP ; Start 10/22/16 at 21:00 Ivermectin 12 mg 12 mg Q7D PO Last administered on 10/22/16 13:18; Admin Dose 12 MG; Start 10/22/16 at 13:00; Stop 10/29/16 at 13:01 Dextrose/Sodium Chloride (D5-1/2ns) 1,000 ml @ 70 mls/hr [id number] IV Last administered on 10/22/16 14:27; Admin Dose 70 MLS/HR; Start 10/22/16 at 14:30 NAE VELAZCO Oct 22, 2016 19:39
[2016-10-22] MEDS: VANCOMYCIN 1.25 GM in SOD CHLORIDE 0.9% 250 ML IVPB SCH (20:10)
[2016-10-22] MEDS: RISPERIDONE 1 MG TAB GTB SCH (21:35)
[2016-10-22] MEDS: DOCUSATE SODIUM 10 MG/ML (10ML CUP) GTB SCH (21:37)
[2016-10-22] MEDS: ZOLPIDEM 5 MG TAB PO PRN (21:59)
[2016-10-23] VITALS (23 sets, daily range): BP systolic 100–122; BP diastolic 64–81; PULSE 64–102; RESP 18–30
[2016-10-23] MEDS: IPRATROPIUM (HFA) 12.9 GM INHALER INH SCH ×4 (01:17→20:40)
[2016-10-23] MEDS: LEVALBUTEROL (HFA) 15 GM INHALER INH SCH ×4 (01:17→20:40)
[2016-10-23] MEDS: MUPIROCIN 2% 22 GM OINT TOP SCH ×3 (02:09→21:45)
[2016-10-23] MEDS: HYDROmorphONE 1 MG/ML SYG IV PRN ×5 (04:16→22:10)
[2016-10-23] MEDS: LANSOPRAZOLE 30 MG CAP GTB SCH (06:58)
[2016-10-23] MEDS: DEXTROSE 5%-0.45% NACL 1,000 ML IV SCH ×3 (07:30→18:56)
[2016-10-23] MEDS: POLYETHYLENE GLYCOL 17 GM PACKET GTB SCH (09:00)
[2016-10-23] MEDS: CITRIC ACID/NA CIT (1 MEQ/ML POSYG) GTB SCH ×3 (09:37→21:44)
[2016-10-23] MEDS: GABAPENTIN (50 MG/ML PO SYG) GTB SCH ×3 (09:37→21:00)
[2016-10-23] MEDS: MEROPENEM 500MG/50 ML (PMX) 50 ML IVPB SCH ×2 (09:38→21:45)
[2016-10-23] MEDS: MULTIVIT/CA CARB/B CMPLX/FA TAB GTB SCH (09:39)
[2016-10-23] MEDS: ZINC SULFATE 220 MG CAP GTB SCH (09:39)
[2016-10-23] MEDS: ASCORBIC ACID 500 MG TAB GTB SCH (09:39)
[2016-10-23] MEDS: FERROUS SULFATE 60 MG/ML 5ML CUP GTB SCH (09:40)
--- NOTE | 2016-10-23 12:15 | PN ---
Date/Time of Note Date/Time of Note DATE: 10/23/16 TIME: 12:14 Assessment/Plan VTE Prophylaxis VTE Prophylaxis Intervention: other Lines/Catheters IV Catheter Type (from Nrs): PICC Line Central line still needed: Yes Assessment/Plan Chief Complaint/Hosp Course -Hypotension- improved/resolved -- Rash, rule out scabies. -Hyperkalemia-potassium4,8 -Nephrology follows-Dr. Paul Barker -We will do a BMP follow-up results -Acute renal failure -Nephrology follows -Chronic TVRF -Pulmonary consult, Dr. Smyth was notified -Aspiration precautions -SP post suprapubic catheter-infected -Allergy consult, Dr. Shawn Urias notified -ID consult, Dr. Maciel's CORE EXTRUDER near notified -Tachycardia, history of intermittent Mobitz 1, history of preserved EF -Cardiology consult, Dr. John bolanos notified -Jpoojhwol-onamkjmt-btfrxfx is able to take p.o. -Aspiration precautions - History of obstructive uropathy status post JJ stent placement on the left. - Paraplegia and neurogenic bladder. Problems: Subjective 24 Hr Interval Summary Free Text/Dictation Patient states he is eating well Exam/Review of Systems Vital Signs Vitals Vital Signs Date Time Temp Pulse Resp B/P Pulse Ox O2 Delivery O2 Flow Rate FiO2 10/23/16 11:54 98.6 97 18 119/72 97 10/23/16 11:07 45 10/22/16 16:00 Mechanical Ventilator Intake and Output 10/22/16 10/22/16 10/23/16 15:00 23:00 07:00 Intake Total 1005 ml 870 ml 1275 ml Output Total 850 ml 300 ml Balance 155 ml 570 ml 1275 ml Exam Constitutional: well developed Head: atraumatic, normocephalic Neck: supple Respiratory: diminished breath sounds Cardiovascular: regular rate and rhythm Gastrointestinal: non-tender, soft Extremities: normal pulses Results Result Diagram: 10/22/16 0430 10/22/16 0430 Medications Medications Current Medications Dextrose (D50w Syringe) ONCE PRN IV POC BLOOD GLUCOSE <250 MG/DL; Start at 06:00 Hydromorphone HCl (Dilaudid) 1 mg Q4H PRN IV PAIN Last administered on t 09:40; Admin Dose 1 MG; Start 10/20/16 at 10:00 Acetaminophen (Tylenol Liquid) 650 mg Q4H PRN GTB MILD PAIN LEVEL 1-3; Start at 13:30 Ascorbic Acid (Vitamin C) 500 mg DAILY GTB Last administered on 10/23/16 09:39 ; Admin Dose 500 MG; Start 10/20/16 at 14:00 Bisacodyl (Dulcolax Supp) 10 mg Q24H PRN [place] CONSTIPATION; Start 10/20/16 at 13: 30 Citric Acid/ Sodium Citrate (Bicitra Liquid (Ped)) 10 meq TID GTB Last administered on 10/23/16 09:37; Admin Dose 10 MEQ; Start 10/20/16 at 21:00 Docusate Sodium (Colace Liquid Cup) 200 mg QHS GTB Last administered on 21:37; Admin Dose 200 MG; Start 10/20/16 at 21:00 Enoxaparin Sodium (Lovenox) 30 mg DAILY SC ; Start 10/21/16 at 09:00; Status Future Hold Magnesium Hydroxide (Milk Of Mag) 30 ml DAILY PRN GTB CONSTIPATION; Start 10/20 at 13:30 Lansoprazole (Prevacid) 30 mg DAILY@06 GTB Last administered on 10/23/16 06:58 ; Admin Dose 30 MG; Start 10/21/16 at 06:00 Polyethylene Glycol (Miralax) 17 gm DAILY GTB Last administered on 10/21/16 09 :39; Admin Dose 17 GM; Start 10/20/16 at 13:30 Zinc Sulfate (Zinc Sulfate) 220 mg DAILY GTB Last administered on 10/23/16 09: 39; Admin Dose 220 MG; Start 10/21/16 at 09:00 Multivit/Ca Carb/ B Cmplx/FA/Prenat (Lilibeth-Linn) 1 tab DAILY GTB Last administered on 10/23/16 09:39; Admin Dose 1 TAB; Start 10/21/16 at 09:00 Acetaminophen/ Hydrocodone Bitart ([place] (5/325)) 1 tab Q6 PRN GTB PAIN LEVEL 1 -5; Start 10/20/16 at 14:00 Gabapentin (Neurontin Liquid) 100 mg TID GTB Last administered on 10/23/16 09: 37; Admin Dose 100 MG; Start 10/20/16 at 21:00 Risperidone (Risperdal) 1 mg QHS GTB Last administered on 10/22/16 21:35; Admin Dose 1 MG; Start 10/20/16 at 21:00 Ferrous Sulfate 300 mg 300 mg DAILY GTB Last administered on 10/23/16 09:40; Admin Dose 300 MG; Start 10/20/16 at 14:07 Meropenem/Sodium Chloride 50 ml @ 100 mls/hr Q12 IVPB Last administered on 09:38; Admin Dose 100 MLS/HR; Start 10/20/16 at 21:00 Vancomycin HCl/ Sodium Chloride (Vancocin/NS) 250 ml @ 83.333 mls/ hr Q48H IVPB Last administered on 10/22/16 20:10; Admin Dose 83.333 MLS/HR; Start at 20:00 [facility] This patient noriega... PRN PRN XX WOUND CARE; Start 10/20/16 at 20:00 Zolpidem Tartrate 5 mg 5 mg HS PRN PO INSOMNIA Last administered on 10/22/16 21:59; Admin Dose 5 MG; Start 10/20/16 at 21:00 Norepinephrine (Levophed) 250 ml @ 1.875 mls/ hr TITRATE IV ; Start 10/20/16 at 21:00 Permethrin (Elimite 5% Cr) 1 applic Q7D TOP Last administered on 10/21/16 16: 35; Admin Dose 1 APPLIC; Start 10/21/16 at 16:00; Stop 10/28/16 at 16:01 Mupirocin (Bactroban) 1 applic BID TOP Last administered on 10/23/16 09:38; Admin Dose 1 APPLIC; Start 10/22/16 at 21:00 Ivermectin 12 mg 12 mg Q7D PO Last administered on 10/22/16 13:18; Admin Dose 12 MG; Start 10/22/16 at 13:00; Stop 10/29/16 at 13:01 Dextrose/Sodium Chloride (D5-1/2ns) 1,000 ml @ 70 mls/hr [id number] IV Last administered on 10/22/16 14:27; Admin Dose 70 MLS/HR; Start 10/22/16 at 14:30 DANAY MUIR Oct 23, 2016 12:15
--- NOTE | 2016-10-23 12:27 | PN ---
DATE: 10/23/2016 SUBJECTIVE DATA: The patient is on the medical floor now while he is on continuous ventilator support through tracheostomy. OBJECTIVE DATA: His vital signs are stable. He has not had any fever spikes. VITAL SIGNS: Temperature 97.6 this morning. Blood pressure is 122/68. Pulse rate is 100. Respirations are 18. Pulse oximetry 96 percent saturation. NECK: Tracheal secretions are clear. No gross bleeding is seen. HEART: Regular rhythm with sinus tachycardia. CHEST: Breath sounds are heard bilaterally, diminished in both the lower lung tierney with a few intermittent rales and rhonchi. ABDOMEN: Soft. Tolerating gastrostomy tube feedings. Bowel sounds are present. EXTREMITIES: Show no edema. He is paraplegic. LABORATORY AND DIAGNOSTIC DATA: No lab results are available today. The patient has a tendency to bite on the tracheostomy cuff portal; however, he will not cooperate to have the tracheostomy tube replaced. He has been advised not to touch the tracheostomy tube. If his volumes go down, respiratory therapist will compensate by adding extra volume to maintain the ventilator tidal volume at least above 400. IMPRESSION: 1. Chronic ventilator-dependent respiratory failure. 2. Sepsis. 3. Chronic kidney disease. 4. Hyperkalemia, resolved. 5. Chronic anemia. 6. Chronic bilateral pleural effusions. 7. 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 PLAN: 1. Continue long-term ventilator support. 2. Continue antibiotics as per the recommendation of the infectious disease sap plant maintenance consultant. 3. Continue pulmonary toilet, bronchodilator inhalation therapy. 4. Continue gastrostomy tube feedings. I explained to the patient to cooperate with the respiratory therapy and nursing staff. Dictated By: Palmer Ames MD /sera/terry /Document#: [id number]
--- NOTE | 2016-10-23 13:28 | CONS ---
Date/Time of Note Date/Time of Note DATE: 10/23/16 TIME: 13:26 Consult Date/Type/Reason Admit Date/Time Oct 21, 2016 at 15:46 Initial Consult Date 10/20/16 Type of Consultation: CARDIOLOGY Ordering Provider: JOSÉ ANTONIO MIRZA MD Subjective CARDIOLOGY FOLLOW UP NOTE SUBJECTIVE: D/W staff and rhythm was reviewed. pt remains in NSR/ Sinus tachy s/p trach on vent, BUT out of ICU no reports of chest pain or pressure or palpitations OBJECTIVE; General: Thin man s/p trach. HEENT: NC/AT. pupils are equal. round. NECK:s/p trach. . no stridor. CV: RRR. systolic murmur; no gallop or rubs. PULM: no wheezing anteriorly. GI: SOFT, NT, ND, no rebound or guarding Extremity: trace B/L LE edema. no clubbing. neuro: awake and alert, . Psych: calm and pleasant rectal: deferred : normal echo EF 70% Objective Vital Signs Date Time Temp Pulse Resp B/P Pulse Ox O2 Delivery O2 Flow Rate FiO2 10/23/16 12:49 97 10/23/16 11:54 98.6 18 119/72 97 10/23/16 11:07 45 10/22/16 16:00 Mechanical Ventilator Intake and Output 10/22/16 10/22/16 10/23/16 15:00 23:00 07:00 Intake Total 1005 ml 870 ml 1275 ml Output Total 850 ml 300 ml Balance 155 ml 570 ml 1275 ml Results/Medications Result Diagram: 10/22/16 0430 10/22/16 0430 Medications Current Medications Dextrose (D50w Syringe) ONCE PRN IV POC BLOOD GLUCOSE <250 MG/DL; Start at 06:00 Hydromorphone HCl (Dilaudid) 1 mg Q4H PRN IV PAIN Last administered on 09:40; Admin Dose 1 MG; Start 10/20/16 at 10:00 Acetaminophen (Tylenol Liquid) 650 mg Q4H PRN GTB MILD PAIN LEVEL 1-3; Start at 13:30 Ascorbic Acid (Vitamin C) 500 mg DAILY GTB Last administered on 10/23/16 09:39 ; Admin Dose 500 MG; Start 10/20/16 at 14:00 Bisacodyl (Dulcolax Supp) 10 mg Q24H PRN [place] CONSTIPATION; Start 10/20/16 at 13: 30 Citric Acid/ Sodium Citrate (Bicitra Liquid (Ped)) 10 meq TID GTB Last administered on 10/23/16 09:37; Admin Dose 10 MEQ; Start 10/20/16 at 21:00 Docusate Sodium (Colace Liquid Cup) 200 mg QHS GTB Last administered on 21:37; Admin Dose 200 MG; Start 10/20/16 at 21:00 Enoxaparin Sodium (Lovenox) 30 mg DAILY SC ; Start 10/21/16 at 09:00; Status Future Hold Magnesium Hydroxide (Milk Of Mag) 30 ml DAILY PRN GTB CONSTIPATION; Start 10/20 at 13:30 Lansoprazole (Prevacid) 30 mg DAILY@06 GTB Last administered on 10/23/16 06:58 ; Admin Dose 30 MG; Start 10/21/16 at 06:00 Polyethylene Glycol (Miralax) 17 gm DAILY GTB Last administered on 10/21/16 09 :39; Admin Dose 17 GM; Start 10/20/16 at 13:30 Zinc Sulfate (Zinc Sulfate) 220 mg DAILY GTB Last administered on 10/23/16 09: 39; Admin Dose 220 MG; Start 10/21/16 at 09:00 Multivit/Ca Carb/ B Cmplx/FA/Prenat (Lilibeth-Linn) 1 tab DAILY GTB Last administered on 10/23/16 09:39; Admin Dose 1 TAB; Start 10/21/16 at 09:00 Acetaminophen/ Hydrocodone Bitart ([place] (5/325)) 1 tab Q6 PRN GTB PAIN LEVEL 1 -5; Start 10/20/16 at 14:00 Gabapentin (Neurontin Liquid) 100 mg TID GTB Last administered on 10/23/16 09: 37; Admin Dose 100 MG; Start 10/20/16 at 21:00 Risperidone (Risperdal) 1 mg QHS GTB Last administered on 10/22/16 21:35; Admin Dose 1 MG; Start 10/20/16 at 21:00 Ferrous Sulfate 300 mg 300 mg DAILY GTB Last administered on 10/23/16 09:40; Admin Dose 300 MG; Start 10/20/16 at 14:07 Meropenem/Sodium Chloride 50 ml @ 100 mls/hr Q12 IVPB Last administered on 09:38; Admin Dose 100 MLS/HR; Start 10/20/16 at 21:00 Vancomycin HCl/ Sodium Chloride (Vancocin/NS) 250 ml @ 83.333 mls/ hr Q48H IVPB Last administered on 10/22/16 20:10; Admin Dose 83.333 MLS/HR; Start at 20:00 [facility]iscellaneous [facility] This patient noriega... PRN PRN XX WOUND CARE; Start 10/20/16 at 20:00 Zolpidem Tartrate 5 mg 5 mg HS PRN PO INSOMNIA Last administered on 10/22/16 21:59; Admin Dose 5 MG; Start 10/20/16 at 21:00 Norepinephrine (Levophed) 250 ml @ 1.875 mls/ hr TITRATE IV ; Start 10/20/16 at 21:00 Permethrin (Elimite 5% Cr) 1 applic Q7D TOP Last administered on 10/21/16 16: 35; Admin Dose 1 APPLIC; Start 10/21/16 at 16:00; Stop 10/28/16 at 16:01 Mupirocin (Bactroban) 1 applic BID TOP Last administered on 10/23/16 09:38; Admin Dose 1 APPLIC; Start 10/22/16 at 21:00 Ivermectin 12 mg 12 mg Q7D PO Last administered on 10/22/16 13:18; Admin Dose 12 MG; Start 10/22/16 at 13:00; Stop 10/29/16 at 13:01 Dextrose/Sodium Chloride (D5-1/2ns) 1,000 ml @ 70 mls/hr [id number] IV Last administered on 10/22/16 14:27; Admin Dose 70 MLS/HR; Start 10/22/16 at 14:30 Assessment/Plan Chief Complaint/Hosp Course 1. Sinus tachycardia/ hypotension 2. hypoxemic resp failure s/p trach 3. anemia 4. Renal insufficiency 5. scabies 6. Hyper Na cont vent support abx as per ID pt with normal EF ISOLATION for scabies and MRSA for now. DR RIVERS will f/u tomorrow. DELFIN HIGUERA MD [facility] Problems: DELFIN HIGUERA MD Oct 23, 2016 13:28
--- NOTE | 2016-10-23 18:27 | CONS ---
Date/Time of Note Date/Time of Note DATE: 10/23/16 TIME: 18:24 Assessment/Plan Assessment/Plan Chief Complaint/Hosp Course ID PROGRESS NOTE TOTAL ABX DAY # CURRENT ABX=> Vanco IV + Merrem 24H INTERVAL SUMMARY * Nurses report he chews on trach inflation balloon, * Flat affect -- Awake, alert, responsive, watching TV, doing well, no c/o, VSS , Tmax 99.0 * Per Dr. Butler he has hx of uretal stents which may be calcified and difficult to remove, he also has suprapubic cath, facing complex procedure * (+)Scabies Lesion from the right leg and thigh, scrapings: -- Positive for Sarcoptes scabiei parasitic organisms. -- Keratin material and hair segments with rare blood cells are present. EXAM GENERAL: 41 yo M, A/A/O, VSS, NAD HEENT: Unremarkable NECK: (+)Trach-> secure to Vent CHEST: Course ABDOMEN: Soft, NT EXTREMITIES: WArm, no edema SKIN: No diaphoresis, no rash ID ASSESSMENT: 41 yo M w/ PMHx SCI with paraplegia, chronic trach, neurogenic bladder admit [facility] ICU with: 1. Sepsis possibly secondary to HCAP @ SNF vs urinary tract infection, recurrent. 2. Worsening aeration of the lung bases, likely due to bilateral pleural effusions, right greater than left. 3. Chronic VDRF 4. Acute on chronic kidney disease w/Hyperkalemia on admission = resolved 5. Hx of right nephrectomy with left renal nephrolithiasis and a left renal cyst measuring 5.3 cm in size. 6. Suprapubic catheter -> due to neurogenic bladder + #5 7. History of obstructive uropathy status post JJ stent placement on the left. 8. Multiple Decubs -> See chart photos 9. Rash=> (+)Scabies Lesion from the right leg and thigh, scrapings: -- Positive for Sarcoptes scabiei parasitic organisms. -- Keratin material and hair segments with rare blood cells are present. (+)MRSA Nares -> Bactroban INVASIVES: Peg, trach, PI:V, suprapubic ABX ALLERGY: Tetracycline TOTAL ABX DAY # CURRENT ABX=> => Vanco IV + Merrem ID PLAN 1. Continue current ABX + Bactroban to bilateral nares 2. s/p Ivermectin due to high rates of failure to respond to Elimite when open wound present. 3. Patient is cleared from ID to proceed to complex procedure w/Dr. Marquez * Per Dr. Butler he has hx of uretal stents which may be calcified and difficult to remove, he also has suprapubic cath, facing complex procedure attempt to remove stents Problems: Consultation Date/Type/Reason Admit Date/Time Oct 21, 2016 at 15:46 Initial Consult Date 10/20/16 Type of Consultation: ID Referring Provider: JOSÉ ANTONIO MIRZA MD Exam/Review of Systems Vital Signs Vitals Vital Signs Date Time Temp Pulse Resp B/P Pulse Ox O2 Delivery O2 Flow Rate FiO2 10/23/16 17:20 90 20 100 45 10/23/16 15:08 98.0 113/81 10/22/16 16:00 Mechanical Ventilator Intake and Output 10/22/16 10/22/16 10/23/16 15:00 23:00 07:00 Intake Total 1005 ml 870 ml 1275 ml Output Total 850 ml 300 ml Balance 155 ml 570 ml 1275 ml Results Result Diagram: 10/22/16 0430 10/22/16 0430 Medications Medications Current Medications Dextrose (D50w Syringe) ONCE PRN IV POC BLOOD GLUCOSE <250 MG/DL; Start at 06:00 Hydromorphone HCl (Dilaudid) 1 mg Q4H PRN IV PAIN Last administered on 17:53; Admin Dose 1 MG; Start 10/20/16 at 10:00 Acetaminophen (Tylenol Liquid) 650 mg Q4H PRN GTB MILD PAIN LEVEL 1-3; Start at 13:30 Ascorbic Acid (Vitamin C) 500 mg DAILY GTB Last administered on 10/23/16 09:39 ; Admin Dose 500 MG; Start 10/20/16 at 14:00 Bisacodyl (Dulcolax Supp) 10 mg Q24H PRN [place] CONSTIPATION; Start 10/20/16 at 13: 30 Citric Acid/ Sodium Citrate (Bicitra Liquid (Ped)) 10 meq TID GTB Last administered on 10/23/16 13:53; Admin Dose 10 MEQ; Start 10/20/16 at 21:00 Docusate Sodium (Colace Liquid Cup) 200 mg QHS GTB Last administered on 21:37; Admin Dose 200 MG; Start 10/20/16 at 21:00 Enoxaparin Sodium (Lovenox) 30 mg DAILY SC ; Start 10/21/16 at 09:00; Status Future Hold Magnesium Hydroxide (Milk Of Mag) 30 ml DAILY PRN GTB CONSTIPATION; Start 10/20 at 13:30 Lansoprazole (Prevacid) 30 mg DAILY@06 GTB Last administered on 10/23/16 06:58 ; Admin Dose 30 MG; Start 10/21/16 at 06:00 Polyethylene Glycol (Miralax) 17 gm DAILY GTB Last administered on 10/21/16 09 :39; Admin Dose 17 GM; Start 10/20/16 at 13:30 Zinc Sulfate (Zinc Sulfate) 220 mg DAILY GTB Last administered on 10/23/16 09: 39; Admin Dose 220 MG; Start 10/21/16 at 09:00 Multivit/Ca Carb/ B Cmplx/FA/Prenat ([place]ilib[place]-L[place]) 1 tab DAILY GTB Last administered on 10/23/16 09:39; Admin Dose 1 TAB; Start 10/21/16 at 09:00 Acetaminophen/ Hydrocodone Bitart ([place] (5/325)) 1 tab Q6 PRN GTB PAIN LEVEL 1 -5; Start 10/20/16 at 14:00 Gabapentin (Neurontin Liquid) 100 mg TID GTB Last administered on 10/23/16 13: 53; Admin Dose 100 MG; Start 10/20/16 at 21:00 Risperidone (Risperdal) 1 mg QHS GTB Last administered on 10/22/16 21:35; Admin Dose 1 MG; Start 10/20/16 at 21:00 Ferrous Sulfate 300 mg 300 mg DAILY GTB Last administered on 10/23/16 09:40; Admin Dose 300 MG; Start 10/20/16 at 14:07 Meropenem/Sodium Chloride 50 ml @ 100 mls/hr Q12 IVPB Last administered on 09:38; Admin Dose 100 MLS/HR; Start 10/20/16 at 21:00 Vancomycin HCl/ Sodium Chloride (Vancocin/NS) 250 ml @ 83.333 mls/ hr Q48H IVPB Last administered on 10/22/16 20:10; Admin Dose 83.333 MLS/HR; Start at 20:00 Miscellaneous Information (Pending [facility] Order For Wound Care) This patient noriega... PRN PRN XX WOUND CARE; Start 10/20/16 at 20:00 Zolpidem Tartrate (Ambien) 5 mg HS PRN PO INSOMNIA Last administered on 21:59; Admin Dose 5 MG; Start 10/20/16 at 21:00 Permethrin (Elimite 5% Cr) 1 applic Q7D TOP Last administered on 10/21/16 16: 35; Admin Dose 1 APPLIC; Start 10/21/16 at 16:00; Stop 10/28/16 at 16:01 Mupirocin (Bactroban) 1 applic BID TOP Last administered on 10/23/16 09:38; Admin Dose 1 APPLIC; Start 10/22/16 at 21:00 Ivermectin 12 mg 12 mg Q7D PO Last administered on 10/22/16 13:18; Admin Dose 12 MG; Start 10/22/16 at 13:00; Stop 10/29/16 at 13:01 Dextrose/Sodium Chloride (D5-1/2ns) 1,000 ml @ 70 mls/hr [id number] IV Last administered on 10/23/16 13:55; Admin Dose 70 MLS/HR; Start 10/22/16 at 14:30 KELSI CERDA NP Oct 23, 2016 18:27
[2016-10-23] MEDS: DOCUSATE SODIUM 10 MG/ML (10ML CUP) GTB SCH ×2 (21:00→21:45)
--- NOTE | 2016-10-23 21:41 | CONS ---
Date/Time of Note Date/Time of Note DATE: 10/23/16 TIME: 21:40 Assessment/Plan Assessment/Plan Additional Assessment/Plan A 41-year-old male who is quadriplegic secondary to his C5-C6 injury during a wrestling accident at the age of 15 was admitted with high potassium then repeated again which again showed high potassium. The patient says he has pain all over and has chronic pain. Other than that he has no symptoms. He says he has no cough no vomiting or diarrhea.He is noted to have acute kidney injury, Hyperkalemia, renal has been consulted for BELINDA. Problems: Additional Assessment/Plan 1. Acute kidney injury secondary to severe prerenal azotemia and possible acute tubular necrosis. UO= 1150 / 24 hrs 2. Acute uremia with a BUN of 46, Cr 1.42.- slowly improving with D5W 3. Acute hyperkalemia- resolved 5. 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 6. History of neurogenic bladder with urinary retention, status post suprapubic catheter. 7. History of previous recurrent urinary tract infections. 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 9. 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 10. Other medical history includes anxiety, depression, bipolar disorder, psychosis. 11. History of right nephrectomy with left renal nephrolithiasis and a left renal cyst measuring 5.3 cm in size. Plan: - Transferred to [facility] today -renal function to improving with IV fluids.Cont - - BP stable - will follow up Dw Dr Paul Barker/staff Consultation Date/Type/Reason Admit Date/Time Oct 21, 2016 at 15:46 Initial Consult Date 10/20/16 Type of Consultation: ID Referring Provider: JOSÉ ANTONIO MIRZA MD 24 HR Interval Summary Constitutional: requiring O2 Exam/Review of Systems Vital Signs Vitals Vital Signs Date Time Temp Pulse Resp B/P Pulse Ox O2 Delivery O2 Flow Rate FiO2 10/23/16 21:18 97.9 64 18 100/64 99 Room Air 10/23/16 19:25 45 Intake and Output 10/22/16 10/22/16 10/23/16 15:00 23:00 07:00 Intake Total 1005 ml 870 ml 1275 ml Output Total 850 ml 300 ml Balance 155 ml 570 ml 1275 ml Results Result Diagram: 10/22/160 10/22/16429 Medications Medications Current Medications Dextrose (D50w Syringe) ONCE PRN IV POC BLOOD GLUCOSE <250 MG/DL; Start at 06:00 Hydromorphone HCl (Dilaudid) 1 mg Q4H PRN IV PAIN Last administered on 17:53; Admin Dose 1 MG; Start 10/20/16 at 10:00 Acetaminophen (Tylenol Liquid) 650 mg Q4H PRN GTB MILD PAIN LEVEL 1-3; Start at 13:30 Ascorbic Acid (Vitamin C) 500 mg DAILY GTB Last administered on 10/23/16 09:39 ; Admin Dose 500 MG; Start 10/20/16 at 14:00 Bisacodyl (Dulcolax Supp) 10 mg Q24H PRN [place] CONSTIPATION; Start 10/20/16 at 13: 30 Citric Acid/ Sodium Citrate (Bicitra Liquid (Ped)) 10 meq TID GTB Last administered on 10/23/16 13:53; Admin Dose 10 MEQ; Start 10/20/16 at 21:00 Docusate Sodium (Colace Liquid Cup) 200 mg QHS GTB Last administered on 21:37; Admin Dose 200 MG; Start 10/20/16 at 21:00 Enoxaparin Sodium (Lovenox) 30 mg DAILY SC ; Start 10/21/16 at 09:00; Status Future Hold Magnesium Hydroxide (Milk Of Mag) 30 ml DAILY PRN GTB CONSTIPATION; Start 10/20 at 13:30 Lansoprazole (Prevacid) 30 mg DAILY@06 GTB Last administered on 10/23/16 06:58 ; Admin Dose 30 MG; Start 10/21/16 at 06:00 Polyethylene Glycol (Miralax) 17 gm DAILY GTB Last administered on 10/21/16 09 :39; Admin Dose 17 GM; Start 10/20/16 at 13:30 Zinc Sulfate (Zinc Sulfate) 220 mg DAILY GTB Last administered on 10/23/16 09: 39; Admin Dose 220 MG; Start 10/21/16 at 09:00 Multivit/Ca Carb/ B Cmplx/FA/Prenat (Lilibeth-L[place]) 1 tab DAILY GTB Last administered on 10/23/16 09:39; Admin Dose 1 TAB; Start 10/21/16 at 09:00 Acetaminophen/ Hydrocodone Bitart ([place] (5/325)) 1 tab Q6 PRN GTB PAIN LEVEL 1 -5; Start 10/20/16 at 14:00 Gabapentin (Neurontin Liquid) 100 mg TID GTB Last administered on 10/23/16 13: 53; Admin Dose 100 MG; Start 10/20/16 at 21:00 Risperidone (Risperdal) 1 mg QHS GTB Last administered on 10/22/16 21:35; Admin Dose 1 MG; Start 10/20/16 at 21:00 Ferrous Sulfate 300 mg 300 mg DAILY GTB Last administered on 10/23/16 09:40; Admin Dose 300 MG; Start 10/20/16 at 14:07 Meropenem/Sodium Chloride 50 ml @ 100 mls/hr Q12 IVPB Last administered on 09:38; Admin Dose 100 MLS/HR; Start 10/20/16 at 21:00 Vancomycin HCl/ Sodium Chloride (Vancocin/NS) 250 ml @ 83.333 mls/ hr Q48H IVPB Last administered on 10/22/16 20:10; Admin Dose 83.333 MLS/HR; Start at 20:00 Miscellaneous Information (Pending [facility] Order For Wound Care) This patient noriega... PRN PRN XX WOUND CARE; Start 10/20/16 at 20:00 Zolpidem Tartrate (Ambien) 5 mg HS PRN PO INSOMNIA Last administered on 21:59; Admin Dose 5 MG; Start 10/20/16 at 21:00 Permethrin (Elimite 5% Cr) 1 applic Q7D TOP Last administered on 10/21/16 16: 35; Admin Dose 1 APPLIC; Start 10/21/16 at 16:00; Stop 10/28/16 at 16:01 Mupirocin (Bactroban) 1 applic BID TOP Last administered on 10/23/16 09:38; Admin Dose 1 APPLIC; Start 10/22/16 at 21:00 Ivermectin 12 mg 12 mg Q7D PO Last administered on 10/22/16 13:18; Admin Dose 12 MG; Start 10/22/16 at 13:00; Stop 10/29/16 at 13:01 Dextrose/Sodium Chloride (D5-1/2ns) 1,000 ml @ 70 mls/hr [id number] IV Last administered on 10/23/16t 13:55; Admin Dose 70 MLS/HR; Start 10/22/16 at 14:30 NAE VELAZCO Oct 23, 2016 21:41
[2016-10-23] MEDS: RISPERIDONE 1 MG TAB GTB SCH (21:44)
[2016-10-23] MEDS: ZOLPIDEM 5 MG TAB PO PRN (22:10)
[2016-10-24] VITALS (23 sets, daily range): BP systolic 99–125; BP diastolic 63–81; PULSE 83–101; RESP 15–34
[2016-10-24] MEDS: IPRATROPIUM (HFA) 12.9 GM INHALER INH SCH ×4 (01:42→20:44)
[2016-10-24] MEDS: LEVALBUTEROL (HFA) 15 GM INHALER INH SCH ×4 (01:42→20:44)
[2016-10-24] MEDS: HYDROmorphONE 1 MG/ML SYG IV PRN ×6 (02:41→23:08)
[2016-10-24] MEDS: LANSOPRAZOLE 30 MG CAP GTB SCH (06:22)
[2016-10-24] MEDS: DEXTROSE 5%-0.45% NACL 1,000 ML IV SCH ×3 (06:25→22:57)
[2016-10-24 07:27] LABS: BASOPHILS % 0.3 % (0.0-2.0); EOSINOPHILS # 0.3 10^3/ul (0.0-0.5); EOSINOPHILS % 6.8 % (0.0-7.0); HEMATOCRIT 28.3 % (42.0-52.0); HEMOGLOBIN 8.8 g/dl (14.0-18.0); LYMPHOCYTES # 0.8 10^3/ul (0.8-2.9); LYMPHOCYTES % 18.8 % (15.0-51.0); MEAN CORPUSCULAR HEMOGLOBIN 30.8 pg (29.0-33.0); MEAN CORPUSCULAR HGB CONC 31.1 g/dl (32.0-37.0); MEAN PLATELET VOLUME 11.6 fl (7.4-10.4); MONOCYTE # 0.5 10^3/ul (0.3-0.9); MONOCYTES % 11.5 % (0.0-11.0); NEUTROPHIL # 2.5 10^3/ul (1.6-7.5); NEUTROPHILS % 62.1 % (39.0-77.0); PLATELET COUNT 117 10^3/UL (140-415); RED BLOOD COUNT 2.86 10^6/ul (4.70-6.10); RED CELL DISTRIBUTION WIDTH 13.9 % (11.5-14.5)
[2016-10-24 07:51] LABS: CALCIUM 8.5 mg/dl (8.4-10.2); CREATININE 1.48 mg/dl (0.61-1.24); POTASSIUM 4.8 mmol/L (3.5-5.1)
[2016-10-24] MEDS: MUPIROCIN 2% 22 GM OINT TOP SCH ×2 (09:00→22:57)
[2016-10-24] MEDS: MEROPENEM 500MG/50 ML (PMX) 50 ML IVPB SCH ×2 (09:00→22:57)
[2016-10-24] MEDS: POLYETHYLENE GLYCOL 17 GM PACKET GTB SCH (09:00)
[2016-10-24] MEDS: ASCORBIC ACID 500 MG TAB GTB SCH (09:54)
[2016-10-24] MEDS: ZINC SULFATE 220 MG CAP GTB SCH (09:55)
[2016-10-24] MEDS: MULTIVIT/CA CARB/B CMPLX/FA TAB GTB SCH (09:55)
[2016-10-24] MEDS: FERROUS SULFATE 60 MG/ML 5ML CUP GTB SCH (09:55)
[2016-10-24] MEDS: GABAPENTIN (50 MG/ML PO SYG) GTB SCH ×3 (09:56→22:55)
[2016-10-24] MEDS: CITRIC ACID/NA CIT (1 MEQ/ML POSYG) GTB SCH ×3 (09:56→21:00)
--- NOTE | 2016-10-24 12:59 | PN ---
Date/Time of Note Date/Time of Note DATE: 10/24/16 TIME: 12:51 Assessment/Plan VTE Prophylaxis VTE Prophylaxis Intervention: other Lines/Catheters IV Catheter Type (from [facility]): PICC Line Central line still needed: Yes Assessment/Plan Chief Complaint/Hosp Course This is a 40-year-old male who was admitted to the hospital from a nursing facility because of hypoxemia. 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 Patient has a tracheostomy and also has a suprapubic tube. Patient has had a right nephrectomy. He only has a left kidney and KUB and CT scan showed that he has a JJ stent. The CT scan showed the JJ stent to be in good place with stones in the lower pole of the left kidney and there is 1 Stone Close to the proximal curl of the stent .The stent appeared to be in good position. I talked to the patient and he said he has had it for over 1 year and it was inserted for him in a hospital in [place] For now we will keep the suprapubic tube in place and do extracorporeal shockwave lithotripsy to the proximal curl of the JJ stent then do a cystoscopy most likely through the suprapubic tract or through the urethra if it is open to see if we could remove and may be replace the ureteral JJ stent or just remove it.That will depend on the findings at the time of the cystoscopy. I did explain this to the patient the success as well as a failure of the procedure especially that the stent has been there for over 1 year and could be calcified. Also the fact that we have to go either through his urethra or suprapubic tube track with the lower extremities contractures that he have the procedure may not be a simple one. He understood all of that and he said he is to give the consent for the procedure. I will try to schedule it for tomorrow around 5:30 PM at the time is available Problems: Subjective 24 Hr Interval Summary Constitutional: no complaints Eyes: no complaints ENT: no complaints, other ( tracheostomy) Respiratory: other (Patient on a respirator through a tracheostomy) Cardiovascular: No edema Gastrointestinal: no complaints Genitourinary: other (Has a suprapubic catheter) Musculoskeletal: no complaints Neurologic: other (Paraplegia) Exam/Review of Systems Vital Signs Vitals Vital Signs Date Time Temp Pulse Resp B/P Pulse Ox O2 Delivery O2 Flow Rate FiO2 10/24/16 12:21 97 10/24/16 11:32 98.6 16 99/63 95 10/24/16 11:15 45 10/23/16 21:18 Room Air Intake and Output 10/23/16 10/23/16 10/24/16 15:00 23:00 07:00 Intake Total 1252 ml 800 ml 200 ml Output Total 1700 ml 3000 ml Balance 1252 ml -900 ml -2800 ml Exam Constitutional: alert, oriented Psych: no complaints Head: normocephalic Eyes: nl conjunctiva ENMT: nl external ears & nose Neck: other (Tracheostomy) Respiratory: other (Patient is on respirator) Cardiovascular: No edema Gastrointestinal: soft Genitourinary - Male: other (Suprapubic tube that is draining clear urine.) Extremities: other (Paraplegia) Neurological: other (Paraplegia) Results Result Diagram: 10/24/16 0615 10/24/16 0615 Results 24 hrs Laboratory Tests Test 10/24/16 06:15 White Blood Count 4.0 #L Red Blood Count 2.86 L Hemoglobin 8.8 L Hematocrit 28.3 L Mean Corpuscular Volume 99.0 Mean Corpuscular Hemoglobin 30.8 Mean Corpuscular Hemoglobin Concent 31.1 L Red Cell Distribution Width 13.9 Platelet Count 117 L Mean Platelet Volume 11.6 H Neutrophils % 62.1 Lymphocytes % 18.8 Monocytes % 11.5 H Eosinophils % 6.8 Basophils % 0.3 Nucleated Red Blood Cells % 0.0 Neutrophils # 2.5 Lymphocytes # 0.8 Monocytes # 0.5 Eosinophils # 0.3 Basophils # 0.0 Nucleated Red Blood Cells # 0.0 Sodium Level 143 Potassium Level 4.8 Chloride Level 111 H Carbon Dioxide Level 27 Anion Gap 10 Blood Urea Nitrogen 42 H Creatinine 1.48 H Glucose Level 85 Calcium Level 8.5 Medications Medications Current Medications Dextrose (D50w Syringe) ONCE PRN IV POC BLOOD GLUCOSE <250 MG/DL; Start at 06:00 Hydromorphone HCl (Dilaudid) 1 mg Q4H PRN IV PAIN Last administered on t 10:29; Admin Dose 1 MG; Start 10/20/16 at 10:00 Acetaminophen (Tylenol Liquid) 650 mg Q4H PRN GTB MILD PAIN LEVEL 1-3; Start at 13:30 Ascorbic Acid (Vitamin C) 500 mg DAILY GTB Last administered on 10/24/16 09:54 ; Admin Dose 500 MG; Start 10/20/16 at 14:00 Bisacodyl (Dulcolax Supp) 10 mg Q24H PRN [place] CONSTIPATION; Start 10/20/16 at 13: 30 Citric Acid/ Sodium Citrate (Bicitra Liquid (Ped)) 10 meq TID GTB Last administered on 10/24/16 09:56; Admin Dose 10 MEQ; Start 10/20/16 at 21:00 Docusate Sodium (Colace Liquid Cup) 200 mg QHS GTB Last administered on 21:37; Admin Dose 200 MG; Start 10/20/16 at 21:00 Enoxaparin Sodium (Lovenox) 30 mg DAILY SC ; Start 10/21/16 at 09:00; Status Future Hold Magnesium Hydroxide (Milk Of Mag) 30 ml DAILY PRN GTB CONSTIPATION; Start 10/20 at 13:30 Lansoprazole (Prevacid) 30 mg DAILY@06 GTB Last administered on 10/24/16 06:22 ; Admin Dose 30 MG; Start 10/21/16 at 06:00 Polyethylene Glycol (Miralax) 17 gm DAILY GTB Last administered on 10/21/16 09 :39; Admin Dose 17 GM; Start 10/20/16 at 13:30 Zinc Sulfate (Zinc Sulfate) 220 mg DAILY GTB Last administered on 10/24/16 09: 55; Admin Dose 220 MG; Start 10/21/16 at 09:00 Multivit/Ca Carb/ B Cmplx/FA/Prenat (Lilibeth-Linn) 1 tab DAILY GTB Last administered on 10/24/16 09:55; Admin Dose 1 TAB; Start 10/21/16 at 09:00 Acetaminophen/ Hydrocodone Bitart ([place] (5/325)) 1 tab Q6 PRN GTB PAIN LEVEL 1 -5; Start 10/20/16 at 14:00 Gabapentin (Neurontin Liquid) 100 mg TID GTB Last administered on 10/24/16 09: 56; Admin Dose 100 MG; Start 10/20/16 at 21:00 Risperidone (Risperdal) 1 mg QHS GTB Last administered on 10/23/16 21:44; Admin Dose 1 MG; Start 10/20/16 at 21:00 Ferrous Sulfate 300 mg 300 mg DAILY GTB Last administered on 10/24/16 09:55; Admin Dose 300 MG; Start 10/20/16 at 14:07 Meropenem/Sodium Chloride 50 ml @ 100 mls/hr Q12 IVPB Last administered on 09:00; Admin Dose 100 MLS/HR; Start 10/20/16 at 21:00 Vancomycin HCl/ Sodium Chloride (Vancocin/NS) 250 ml @ 83.333 mls/ hr Q48H IVPB Last administered on 10/22/16 20:10; Admin Dose 83.333 MLS/HR; Start at 20:00 Miscellaneous Information (Pending Santyl Order For Wound Care) This patient noriega... PRN PRN XX WOUND CARE; Start 10/20/16 at 20:00 Zolpidem Tartrate (Ambien) 5 mg HS PRN PO INSOMNIA Last administered on 22:10; Admin Dose 5 MG; Start 10/20/16 at 21:00 Permethrin (Elimite 5% Cr) 1 applic Q7D TOP Last administered on 10/21/16 16: 35; Admin Dose 1 APPLIC; Start 10/21/16 at 16:00; Stop 10/28/16 at 16:01 Mupirocin (Bactroban) 1 applic BID TOP Last administered on 10/24/16 09:00; Admin Dose 1 APPLIC; Start 10/22/16 at 21:00 Ivermectin 12 mg 12 mg Q7D PO Last administered on 10/22/16 13:18; Admin Dose 12 MG; Start 10/22/16 at 13:00; Stop 10/29/16 at 13:01 Dextrose/Sodium Chloride (D5-1/2ns) 1,000 ml @ 70 mls/hr [id number] IV Last administered on 10/24/16 06:25; Admin Dose 70 MLS/HR; Start 10/22/16 at 14:30 BHARGAV JIANG MD Oct 24, 2016 12:59
--- NOTE | 2016-10-24 14:51 | PN ---
DATE: 10/24/2016 SUBJECTIVE DATA: The patient is awake, responsive. He is comfortable with ventilator support through tracheostomy. His vital signs are stable. He has not had any fever spikes. OBJECTIVE DATA: VITAL SIGNS: This morning temperature is 98.2, blood pressure was 125/70, pulse 82, respiratory rate 18. Pulse oximetry is 98 percent saturation. GENERAL: Ventilator seems to be working well, he is getting volumes around 450 mL through tracheostomy. LUNGS: Technically lungs are clear. No bleeding is seen. HEART: Regular rhythm. CHEST: Breath sounds are diminished in the lower lung tierney, otherwise clear. ABDOMEN: Soft. Mildly distended. Normal bowel sounds. EXTREMITIES: Show no edema. He is paraplegic. He is able to move his upper extremities. LABORATORY DATA: The lab tests from today show sodium 143, potassium of 4.8, BUN 42, creatinine is 1.48. Glucose is 85. CBC shows WBC 4000, hemoglobin 8.8, hematocrit 28.3, platelets are decreased, but stable at 170,000. The patient's BUN and creatinine have been progressively improving, potassium has normalized. Because of patient's underlying chronic kidney disease, further improvement in BUN and creatinine may be very slow. IMAGING: Negative so far. IMPRESSION: 1. Chronic ventilator dependent respiratory failure. 2. Sepsis. 3. Chronic kidney disease. 4. Chronic anemia. 5. Chronic bilateral pleural effusions. 6. Paraplegia, secondary to spinal cord is injury in the past. PLAN: 1. Continue long-term ventilator support. 2. Continue antibiotics, as per the recommendation of infectious disease erp consultant. 3. Continue pulmonary toilet, bronchodilator inhalation therapy. Dictated By: Palmer Ames MD /sera/shane /Document#: [id number]
--- NOTE | 2016-10-24 15:25 | CONS ---
Date/Time of Note Date/Time of Note DATE: 10/24/16 TIME: 15:24 Assessment/Plan Assessment/Plan Additional Assessment/Plan Sepsis/SIRS Hypotension, improved Sinus tachycardia, improved Acute kidney injury with hyperkalemia Respiratory Failure Preserved EF on echocardiogram March 02, 2016 History of intermittent Mobitz I Chronic pain syndrome -Heart rate trend overall improved. Continue to hold any antihypertensive medications. Antibiotics as per primary team. Consultation Date/Type/Reason Admit Date/Time Oct 21, 2016 at 15:46 Initial Consult Date 10/20/16 Type of Consultation: cv Referring Provider: JOSÉ ANTONIO MIRZA MD 24 HR Interval Summary Free Text/Dictation Denies shortness of breath, chest pain or palpitations Exam/Review of Systems Vital Signs Vitals Vital Signs Date Time Temp Pulse Resp B/P Pulse Ox O2 Delivery O2 Flow Rate FiO2 10/24/16 13:15 89 24 98 45 10/24/16 11:32 98.6 99/63 10/23/16 21:18 Room Air Intake and Output 10/23/16 10/23/16 10/24/16 15:00 23:00 07:00 Intake Total 1252 ml 800 ml 200 ml Output Total 1700 ml 3000 ml Balance 1252 ml -900 ml -2800 ml Exam No apparent distress Constitutional: alert, frail, oriented Head: normocephalic Neck: other (Tracheostomy) Respiratory: other (Coarse breath sounds bilaterally, no wheezing) Cardiovascular: other (S1-S2 heard), regular rate and rhythm Gastrointestinal: bowel sounds, non-tender, soft Extremities: other (No edema) Results Result Diagram: 10/24/16 0615 10/24/16 0615 Results 24 hrs Laboratory Tests Test 10/24/16 06:15 White Blood Count 4.0 #L Red Blood Count 2.86 L Hemoglobin 8.8 L Hematocrit 28.3 L Mean Corpuscular Volume 99.0 Mean Corpuscular Hemoglobin 30.8 Mean Corpuscular Hemoglobin Concent 31.1 L Red Cell Distribution Width 13.9 Platelet Count 117 L Mean Platelet Volume 11.6 H Neutrophils % 62.1 Lymphocytes % 18.8 Monocytes % 11.5 H Eosinophils % 6.8 Basophils % 0.3 Nucleated Red Blood Cells % 0.0 Neutrophils # 2.5 Lymphocytes # 0.8 Monocytes # 0.5 Eosinophils # 0.3 Basophils # 0.0 Nucleated Red Blood Cells # 0.0 Sodium Level 143 Potassium Level 4.8 Chloride Level 111 H Carbon Dioxide Level 27 Anion Gap 10 Blood Urea Nitrogen 42 H Creatinine 1.48 H Glucose Level 85 Calcium Level 8.5 Medications Medications Current Medications Dextrose (D50w Syringe) ONCE PRN IV POC BLOOD GLUCOSE <250 MG/DL; Start at 06:00 Hydromorphone HCl (Dilaudid) 1 mg Q4H PRN IV PAIN Last administered on 13:32; Admin Dose 1 MG; Start 10/20/16 at 10:00 Acetaminophen (Tylenol Liquid) 650 mg Q4H PRN GTB MILD PAIN LEVEL 1-3; Start at 13:30 Ascorbic Acid (Vitamin C) 500 mg DAILY GTB Last administered on 10/24/16 09:54 ; Admin Dose 500 MG; Start 10/20/16 at 14:00 Bisacodyl (Dulcolax Supp) 10 mg Q24H PRN [place] CONSTIPATION; Start 10/20/16 at 13: 30 Citric Acid/ Sodium Citrate (Bicitra Liquid (Ped)) 10 meq TID GTB Last administered on 10/24/16 13:31; Admin Dose 10 MEQ; Start 10/20/16 at 21:00 Docusate Sodium (Colace Liquid Cup) 200 mg QHS GTB Last administered on 21:37; Admin Dose 200 MG; Start 10/20/16 at 21:00 Enoxaparin Sodium (Lovenox) 30 mg DAILY SC ; Start 10/21/16 at 09:00; Status Future Hold Magnesium Hydroxide (Milk Of Mag) 30 ml DAILY PRN GTB CONSTIPATION; Start 10/20 at 13:30 Lansoprazole (Prevacid) 30 mg DAILY@06 GTB Last administered on 10/24/16 06:22 ; Admin Dose 30 MG; Start 10/21/16 at 06:00 Polyethylene Glycol (Miralax) 17 gm DAILY GTB Last administered on 10/21/16 09 :39; Admin Dose 17 GM; Start 10/20/16 at 13:30 Zinc Sulfate (Zinc Sulfate) 220 mg DAILY GTB Last administered on 10/24/16 09: 55; Admin Dose 220 MG; Start 10/21/16 at 09:00 Multivit/Ca Carb/ B Cmplx/FA/Prenat (Lilibeth-Linn) 1 tab DAILY GTB Last administered on 10/24/16 09:55; Admin Dose 1 TAB; Start 10/21/16 at 09:00 Acetaminophen/ Hydrocodone Bitart ([place] (5/325)) 1 tab Q6 PRN GTB PAIN LEVEL 1 -5; Start 10/20/16 at 14:00 Gabapentin (Neurontin Liquid) 100 mg TID GTB Last administered on 10/24/16 13: 31; Admin Dose 100 MG; Start 10/20/16 at 21:00 Risperidone (Risperdal) 1 mg QHS GTB Last administered on 10/23/16 21:44; Admin Dose 1 MG; Start 10/20/16 at 21:00 Ferrous Sulfate 300 mg 300 mg DAILY GTB Last administered on 10/24/16 09:55; Admin Dose 300 MG; Start 10/20/16 at 14:07 Meropenem/Sodium Chloride 50 ml @ 100 mls/hr Q12 IVPB Last administered on 09:00; Admin Dose 100 MLS/HR; Start 10/20/16 at 21:00 Vancomycin HCl/ Sodium Chloride (Vancocin/NS) 250 ml @ 83.333 mls/ hr Q48H IVPB Last administered on 10/22/16 20:10; Admin Dose 83.333 MLS/HR; Start at 20:00 [facility] This patient noriega... PRN PRN XX WOUND CARE; Start 10/20/16 at 20:00 Zolpidem Tartrate (Ambien) 5 mg HS PRN PO INSOMNIA Last administered on 22:10; Admin Dose 5 MG; Start 10/20/16 at 21:00 Permethrin (Elimite 5% Cr) 1 applic Q7D TOP Last administered on 10/21/16 16: 35; Admin Dose 1 APPLIC; Start 10/21/16 at 16:00; Stop 10/28/16 at 16:01 Mupirocin (Bactroban) 1 applic BID TOP Last administered on 10/24/16 09:00; Admin Dose 1 APPLIC; Start 10/22/16 at 21:00 Ivermectin 12 mg 12 mg Q7D PO Last administered on 10/22/16 13:18; Admin Dose 12 MG; Start 10/22/16 at 13:00; Stop 10/29/16 at 13:01 Dextrose/Sodium Chloride (D5-1/2ns) 1,000 ml @ 70 mls/hr [id number] IV Last administered on 10/24/16 06:25; Admin Dose 70 MLS/HR; Start 10/22/16 at 14:30 Miscellaneous Information (*Rx Drug Level Order Reminder*) VANCOMYCIN TROUGH AT 1900 ONCE ONCE XX ; Start 10/24/16 at 19:00; Stop 10/24/16 at 19:01 Deandre Chavez DO Oct 24, 2016 15:25
--- NOTE | 2016-10-24 16:57 | PN ---
Date/Time of Note Date/Time of Note DATE: 10/24/16 TIME: 16:52 Assessment/Plan VTE Prophylaxis VTE Prophylaxis Intervention: SCD's Lines/Catheters IV [facility]ter Type (from [facility]): PICC Line Central line still needed: Yes Assessment/Plan Chief Complaint/Hosp Course Patient remains afebrile, plan for lithotripsy procedure tomorrow. Assessment/Plan - Sepsis due to HCAP, urinary tract infection, resolving. Dr. Maciel is following in infection disease consultation. Continue antibiotics per ID. - Neurogenic bladder with suprapubic catheter. - Left renal nephrolithiasis, the vagina is following in urology consultation plans for lithotripsy procedure tomorrow. - Acute kidney injury on chronic kidney disease. Continue to monitor renal function. - Status post right nephrectomy - Ventilator-dependent respiratory failure with tracheostomy. - Dysphagia with percutaneous endoscopic gastrostomy tube. - Multiple decubitus ulcers present on admission. - Cervical spine injury with paraplegia. - Bipolar disorder with psychosis. Further recommendations based on clinical course. Plan of care discussed with Dr. Barreto. Problems: Exam/Review of Systems Vital Signs Vitals Vital Signs Date Time Temp Pulse Resp B/P Pulse Ox O2 Delivery O2 Flow Rate FiO2 10/24/16 16:30 83 10/24/16 15:40 98.4 18 117/81 100 10/24/16 15:00 45 10/23/16 21:18 Room Air Intake and Output 10/23/16 10/23/16 10/24/16 15:00 23:00 07:00 Intake Total 1252 ml 800 ml 200 ml Output Total 1700 ml 3000 ml Balance 1252 ml -900 ml -2800 ml Exam Constitutional: alert Neck: other (Urostomy), supple Respiratory: diminished breath sounds Cardiovascular: nl pulses, regular rate and rhythm Gastrointestinal: non-tender, other (G-tube), soft Extremities: normal pulses Skin: other (Triple decubitus ulcers) Results Result Diagram: 10/24/16 0615 10/24/16 0615 Results 24 hrs Laboratory Tests Test 10/24/16 06:15 White Blood Count 4.0 #L Red Blood Count 2.86 L Hemoglobin 8.8 L Hematocrit 28.3 L Mean Corpuscular Volume 99.0 Mean Corpuscular Hemoglobin 30.8 Mean Corpuscular Hemoglobin Concent 31.1 L Red Cell Distribution Width 13.9 Platelet Count 117 L Mean Platelet Volume 11.6 H Neutrophils % 62.1 Lymphocytes % 18.8 Monocytes % 11.5 H Eosinophils % 6.8 Basophils % 0.3 Nucleated Red Blood Cells % 0.0 Neutrophils # 2.5 Lymphocytes # 0.8 Monocytes # 0.5 Eosinophils # 0.3 Basophils # 0.0 Nucleated Red Blood Cells # 0.0 Sodium Level 143 Potassium Level 4.8 Chloride Level 111 H Carbon Dioxide Level 27 Anion Gap 10 Blood Urea Nitrogen 42 H Creatinine 1.48 H Glucose Level 85 Calcium Level 8.5 Medications Medications Current Medications Dextrose (D50w Syringe) ONCE PRN IV POC BLOOD GLUCOSE <250 MG/DL; Start at 06:00 Hydromorphone HCl (Dilaudid) 1 mg Q4H PRN IV PAIN Last administered on 13:32; Admin Dose 1 MG; Start 10/20/16 at 10:00 Acetaminophen (Tylenol Liquid) 650 mg Q4H PRN GTB MILD PAIN LEVEL 1-3; Start at 13:30 Ascorbic Acid (Vitamin C) 500 mg DAILY GTB Last administered on 10/24/16 09:54 ; Admin Dose 500 MG; Start 10/20/16 at 14:00 Bisacodyl (Dulcolax Supp) 10 mg Q24H PRN [place] CONSTIPATION; Start 10/20/16 at 13: 30 Citric Acid/ Sodium Citrate (Bicitra Liquid (Ped)) 10 meq TID GTB Last administered on 10/24/16 13:31; Admin Dose 10 MEQ; Start 10/20/16 at 21:00 Docusate Sodium (Colace Liquid Cup) 200 mg QHS GTB Last administered on 21:37; Admin Dose 200 MG; Start 10/20/16 at 21:00 Enoxaparin Sodium (Lovenox) 30 mg DAILY SC ; Start 10/21/16 at 09:00; Status Future Hold Magnesium Hydroxide (Milk Of Mag) 30 ml DAILY PRN GTB CONSTIPATION; Start 10/20 at 13:30 Lansoprazole (Prevacid) 30 mg DAILY@06 GTB Last administered on 10/24/16 06:22 ; Admin Dose 30 MG; Start 10/21/16 at 06:00 Polyethylene Glycol (Miralax) 17 gm DAILY GTB Last administered on 10/21/16 09 :39; Admin Dose 17 GM; Start 10/20/16 at 13:30 Zinc Sulfate (Zinc Sulfate) 220 mg DAILY GTB Last administered on 10/24/16 09: 55; Admin Dose 220 MG; Start 10/21/16 at 09:00 Multivit/Ca Carb/ B Cmplx/FA/Prenat (Lilibeth-Linn) 1 tab DAILY GTB Last administered on 10/24/16 09:55; Admin Dose 1 TAB; Start 10/21/16 at 09:00 Acetaminophen/ Hydrocodone Bitart ([place] (5/325)) 1 tab Q6 PRN GTB PAIN LEVEL 1 -5; Start 10/20/16 at 14:00 Gabapentin (Neurontin Liquid) 100 mg TID GTB Last administered on 10/24/16 13: 31; Admin Dose 100 MG; Start 10/20/16 at 21:00 Risperidone (Risperdal) 1 mg QHS GTB Last administered on 10/23/16 21:44; Admin Dose 1 MG; Start 10/20/16 at 21:00 Ferrous Sulfate 300 mg 300 mg DAILY GTB Last administered on 10/24/16 09:55; Admin Dose 300 MG; Start 10/20/16 at 14:07 Meropenem/Sodium Chloride 50 ml @ 100 mls/hr Q12 IVPB Last administered on 09:00; Admin Dose 100 MLS/HR; Start 10/20/16 at 21:00 Vancomycin HCl/ Sodium Chloride (Vancocin/NS) 250 ml @ 83.333 mls/ hr Q48H IVPB Last administered on 10/22/16 20:10; Admin Dose 83.333 MLS/HR; Start at 20:00 Miscellaneous Information (Pending Santyl Order For Wound Care) This patient noriega... PRN PRN XX WOUND CARE; Start 10/20/16 at 20:00 Zolpidem Tartrate (Ambien) 5 mg HS PRN PO INSOMNIA Last administered on 22:10; Admin Dose 5 MG; Start 10/20/16 at 21:00 Permethrin (Elimite 5% Cr) 1 applic Q7D TOP Last administered on 10/21/16 16: 35; Admin Dose 1 APPLIC; Start 10/21/16 at 16:00; Stop 10/28/16 at 16:01 Mupirocin (Bactroban) 1 applic BID TOP Last administered on 10/24/16 09:00; Admin Dose 1 APPLIC; Start 10/22/16 at 21:00 Ivermectin 12 mg 12 mg Q7D PO Last administered on 10/22/16 13:18; Admin Dose 12 MG; Start 10/22/16 at 13:00; Stop 10/29/16 at 13:01 Dextrose/Sodium Chloride (D5-1/2ns) 1,000 ml @ 70 mls/hr [id number] IV Last administered on 10/24/16 06:25; Admin Dose 70 MLS/HR; Start 10/22/16 at 14:30 Miscellaneous Information (*Rx Drug Level Order Reminder*) VANCOMYCIN TROUGH AT 1900 ONCE ONCE XX ; Start 10/24/16 at 19:00; Stop 10/24/16 at 19:01 AISSATOU DUNCAN Oct 24, 2016 16:57
--- NOTE | 2016-10-24 17:30 | CONS ---
Date/Time of Note Date/Time of Note DATE: 10/24/16 TIME: 17:28 Assessment/Plan Assessment/Plan Additional Assessment/Plan 1. Acute kidney injury secondary to severe prerenal azotemia and possible acute tubular necrosis. 2. Acute uremia with a BUN of 46, Cr 1.42.- slowly improving with D5W 3. Acute hyperkalemia- resolved 5. 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 6. History of neurogenic bladder with urinary retention, status post suprapubic catheter. 7. History of previous recurrent urinary tract infections. 8. 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 9. 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 10. Other medical history includes anxiety, depression, bipolar disorder, psychosis. 11. History of right nephrectomy with left renal nephrolithiasis and a left renal cyst measuring 5.3 cm in size. Plan: - Transferred to [facility], Cr 1.48- stable, -renal function to improving with IV fluids.Continue D51/2 NS at 75 cc/hr - BP stable - will follow up Consultation Date/Type/Reason Admit Date/Time Oct 21, 2016 at 15:46 Initial Consult Date 10/20/16 Type of Consultation: NEPHROLOGY Referring Provider: JOSÉ ANTONIO MIRZA MD 24 HR Interval Summary Free Text/Dictation transferred to telemetry floor Exam/Review of Systems Vital Signs Vitals Vital Signs Date Time Temp Pulse Resp B/P Pulse Ox O2 Delivery O2 Flow Rate FiO2 10/24/16 16:30 83 10/24/16 15:40 98.4 18 117/81 100 10/24/16 15:00 45 10/23/16 21:18 Room Air Intake and Output 10/23/16 10/23/16 10/24/16 15:00 23:00 07:00 Intake Total 1252 ml 800 ml 200 ml Output Total 1700 ml 3000 ml Balance 1252 ml -900 ml -2800 ml Exam Constitutional: alert ENMT: nl external ears & nose, other (+ tracheostomy on ventilator ) Neck: supple Respiratory: clear to auscultation, crackles/rales Cardiovascular: nl pulses, regular rate and rhythm Gastrointestinal: non-tender, other (+ G tube placement ), soft Musculoskeletal: quadruplegic Results Result Diagram: 10/24/1615 9/18/17 0615 Results 24 hrs Laboratory Tests Test 10/24/16 06:15 White Blood Count 4.0 #L Red Blood Count 2.86 L Hemoglobin 8.8 L Hematocrit 28.3 L Mean Corpuscular Volume 99.0 Mean Corpuscular Hemoglobin 30.8 Mean Corpuscular Hemoglobin Concent 31.1 L Red Cell Distribution Width 13.9 Platelet Count 117 L Mean Platelet Volume 11.6 H Neutrophils % 62.1 Lymphocytes % 18.8 Monocytes % 11.5 H Eosinophils % 6.8 Basophils % 0.3 Nucleated Red Blood Cells % 0.0 Neutrophils # 2.5 Lymphocytes # 0.8 Monocytes # 0.5 Eosinophils # 0.3 Basophils # 0.0 Nucleated Red Blood Cells # 0.0 Sodium Level 143 Potassium Level 4.8 Chloride Level 111 H Carbon Dioxide Level 27 Anion Gap 10 Blood Urea Nitrogen 42 H Creatinine 1.48 H Glucose Level 85 Calcium Level 8.5 Medications Medications Current Medications Dextrose (D50w Syringe) ONCE PRN IV POC BLOOD GLUCOSE <250 MG/DL; Start at 06:00 Hydromorphone HCl (Dilaudid) 1 mg Q4H PRN IV PAIN Last administered on 13:32; Admin Dose 1 MG; Start 10/20/16 at 10:00 Acetaminophen (Tylenol Liquid) 650 mg Q4H PRN GTB MILD PAIN LEVEL 1-3; Start at 13:30 Ascorbic Acid (Vitamin C) 500 mg DAILY GTB Last administered on 10/24/16 09:54 ; Admin Dose 500 MG; Start 10/20/16 at 14:00 Bisacodyl (Dulcolax Supp) 10 mg Q24H PRN [place] CONSTIPATION; Start 10/20/16 at 13: 30 Citric Acid/ Sodium Citrate (Bicitra Liquid (Ped)) 10 meq TID GTB Last administered on 10/24/16 13:31; Admin Dose 10 MEQ; Start 10/20/16 at 21:00 Docusate Sodium (Colace Liquid Cup) 200 mg QHS GTB Last administered on 21:37; Admin Dose 200 MG; Start 10/20/16 at 21:00 Enoxaparin Sodium (Lovenox) 30 mg DAILY SC ; Start 10/21/16 at 09:00; Status Future Hold Magnesium Hydroxide (Milk Of Mag) 30 ml DAILY PRN GTB CONSTIPATION; Start 10/20 at 13:30 Lansoprazole (Prevacid) 30 mg DAILY@06 GTB Last administered on 10/24/16 06:22 ; Admin Dose 30 MG; Start 10/21/16 at 06:00 Polyethylene Glycol (Miralax) 17 gm DAILY GTB Last administered on 10/21/16 09 :39; Admin Dose 17 GM; Start 10/20/16 at 13:30 Zinc Sulfate (Zinc Sulfate) 220 mg DAILY GTB Last administered on 10/24/16 09: 55; Admin Dose 220 MG; Start 10/21/16 at 09:00 Multivit/Ca Carb/ B Cmplx/FA/Prenat ([place]ilib[place]) 1 tab DAILY GTB Last administered on 10/24/16 09:55; Admin Dose 1 TAB; Start 10/21/16 at 09:00 Acetaminophen/ Hydrocodone Bitart ([place] (5/325)) 1 tab Q6 PRN GTB PAIN LEVEL 1 -5; Start 10/20/16 at 14:00 Gabapentin (Neurontin Liquid) 100 mg TID GTB Last administered on 10/24/16 13: 31; Admin Dose 100 MG; Start 10/20/16 at 21:00 Risperidone (Risperdal) 1 mg QHS GTB Last administered on 10/23/16 21:44; Admin Dose 1 MG; Start 10/20/16 at 21:00 Ferrous Sulfate 300 mg 300 mg DAILY GTB Last administered on 10/24/16 09:55; Admin Dose 300 MG; Start 10/20/16 at 14:07 Meropenem/Sodium Chloride 50 ml @ 100 mls/hr Q12 IVPB Last administered on 09:00; Admin Dose 100 MLS/HR; Start 10/20/16 at 21:00 Vancomycin HCl/ Sodium Chloride (Vancocin/NS) 250 ml @ 83.333 mls/ hr Q48H IVPB Last administered on 10/22/16 20:10; Admin Dose 83.333 MLS/HR; Start at 20:00 [facility] This patient noriega... PRN PRN XX WOUND CARE; Start 9/14/17 at 20:00 Zolpidem Tartrate (Ambien) 5 mg HS PRN PO INSOMNIA Last administered on 22:10; Admin Dose 5 MG; Start 10/20/16 at 21:00 Permethrin (Elimite 5% Cr) 1 applic Q7D TOP Last administered on 10/21/16 16: 35; Admin Dose 1 APPLIC; Start 10/21/16 at 16:00; Stop 10/28/16 at 16:01 Mupirocin (Bactroban) 1 applic BID TOP Last administered on 10/24/16 09:00; Admin Dose 1 APPLIC; Start 10/22/16 at 21:00 Ivermectin 12 mg 12 mg Q7D PO Last administered on 10/22/16 13:18; Admin Dose 12 MG; Start 10/22/16 at 13:00; Stop 10/29/16 at 13:01 Dextrose/Sodium Chloride (D5-1/2ns) 1,000 ml @ 70 mls/hr [id number] IV Last administered on 10/24/16 06:25; Admin Dose 70 MLS/HR; Start 10/22/16 at 14:30 Miscellaneous Information (*Rx Drug Level Order Reminder*) VANCOMYCIN TROUGH AT 1900 ONCE ONCE XX ; Start 10/24/16 at 19:00; Stop 10/24/16 at 19:01 TIARA CISNEROS MD Oct 24, 2016 17:30
--- NOTE | 2016-10-24 19:15 | PN ---
DATE: 10/24/2016 SUBJECTIVE DATA: No acute changes overnight. No fevers. Patient is alert, looks comfortable. LABORATORY AND DIAGNOSTIC DATA: WBC today 4, no shift, no bands. BUN 42, creatinine 1.48. ANTIMICROBIALS: Patient is on IV: 1. Vancomycin 2. Meropenem. INDWELLINGS: Trach, PEG, suprapubic catheter. OBJECTIVE DATA: GENERAL: Chronically ill-appearing, middle-aged man, who is in no distress. HEENT: Head atraumatic, normocephalic. Sclerae anicteric. Buccal mucosa dry. NECK: Supple. CHEST: Rise symmetrical. Breath sounds diminished at the bases. HEART: S1, S2. ABDOMEN: Soft, bowel sounds present. EXTREMITIES: Contracted, wasted. ASSESSMENT: 1. Resolving sepsis. 2. Healthcare-associated pneumonia. 3. Possible recurrent urinary tract infection, no cultures done. 4. Scabies, status post Elimite, getting ivermectin weekly. 5. Quadriplegia. 6. History of right nephrectomy. 7. Multiple chronic wounds. 8. ALLERGY TO TETRACYCLINE. PLAN: Patient remains stable. We will continue him on current antibiotics. Continue ivermectin weekly for a total of 3 weeks. Patient is followed by Urology and scheduled for urologic procedure for possible removal and replacement of ureteral JJ stent. Dictated By: Celso Mancilla NP /sera/svitlana /Document#: [id number] ESSIE
[2016-10-24] MEDS: VANCOMYCIN 1.25 GM in SOD CHLORIDE 0.9% 250 ML IVPB SCH (22:55)
[2016-10-24] MEDS: RISPERIDONE 1 MG TAB GTB SCH (22:56)
[2016-10-24] MEDS: ZOLPIDEM 5 MG TAB PO PRN (22:56)
[2016-10-24] MEDS: DOCUSATE SODIUM 10 MG/ML (10ML CUP) GTB SCH (22:56)
[2016-10-25] VITALS (27 sets, daily range): BP systolic 102–145; BP diastolic 69–100; PULSE 70–129; RESP 15–32
[2016-10-25] MEDS: LEVALBUTEROL (HFA) 15 GM INHALER INH SCH ×4 (02:06→20:30)
[2016-10-25] MEDS: IPRATROPIUM (HFA) 12.9 GM INHALER INH SCH ×4 (02:06→20:30)
[2016-10-25] MEDS: HYDROmorphONE 1 MG/ML SYG IV PRN ×5 (04:04→23:46)
[2016-10-25] MEDS: LANSOPRAZOLE 30 MG CAP GTB SCH (05:00)
[2016-10-25] MEDS: ZINC SULFATE 220 MG CAP GTB SCH (08:53)
[2016-10-25] MEDS: FERROUS SULFATE 60 MG/ML 5ML CUP GTB SCH (08:53)
[2016-10-25] MEDS: ASCORBIC ACID 500 MG TAB GTB SCH (08:53)
[2016-10-25] MEDS: MULTIVIT/CA CARB/B CMPLX/FA TAB GTB SCH (08:53)
[2016-10-25] MEDS: POLYETHYLENE GLYCOL 17 GM PACKET GTB SCH (08:53)
[2016-10-25] MEDS: MUPIROCIN 2% 22 GM OINT TOP SCH ×2 (08:54→20:47)
[2016-10-25] MEDS: GABAPENTIN (50 MG/ML PO SYG) GTB SCH ×3 (08:56→20:46)
[2016-10-25] MEDS: CITRIC ACID/NA CIT (1 MEQ/ML POSYG) GTB SCH ×3 (08:56→20:46)
--- NOTE | 2016-10-25 09:46 | PN ---
DATE: 10/25/2016 SUBJECTIVE DATA: The patient's general condition is the same. He is resting comfortably with ventilator support. He is somewhat noncooperative for the examination. OBJECTIVE DATA: Vital signs are stable. Temperature is 98.1. Blood pressure 111/72. Pulse rate of 98. Respirations 15. Pulse oximetry showing 95% saturation. He has not had any fever spikes. No episodes of desaturations. He is able to eat orally. He has had no problems swallowing according to the nursing staff. Tracheal tube secretions are clear. No bleeding is seen. Heart: Regular sinus rhythm. Chest: Breath sounds are diminished in both lower lung tierney. A few intermittent rales and rhonchi. Abdomen is soft and nondistended. No tenderness is present. Extremities show paraplegia. No edema. LABORATORY AND DIAGNOSTIC DATA: Sodium 143, potassium 4.8, bicarbonate 27. BUN 42, creatinine 1.48. BUN and creatinine have shown significant improvement, however, they may not normalize totally as the patient has underlying chronic kidney disease. His albumin is low at 2.7. Alkaline phosphatase is slightly elevated. AST and ALT are within normal limits. The CBC shows a WBC of 4000. Hemoglobin 8.8, hematocrit 28.3, platelets decreased to 117,000, but has remained relatively stable in the last three days, almost the same. So far, blood cultures are negative. IMPRESSION: 1. Chronic ventilator-dependent respiratory failure. 2. Sepsis. 3. Chronic kidney disease. 4. Nephrolithiasis. 5. Chronic anemia. 6. Chronic bilateral pleural effusions. 7. 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 PLAN: 1. Continue long-term ventilator support. 2. Continue antibiotics as per recommendations of the infectious disease travel consultant. 3. Continue pulmonary toilet, bronchodilator inhalation therapy. 4. The patient will be scheduled to have shock-wave lithotripsy today. 5. His pulmonary status remains relatively stable and once all the procedures are done, discharge planning may be started for long-term placement. The patient has been a long-term resident in the [facility]. He could go back to the same place. Dictated By: Palmer Ames MD /sera/bev /Document#: [id number]
[2016-10-25] MEDS: MEROPENEM 500MG/50 ML (PMX) 50 ML IVPB SCH ×2 (09:48→20:43)
[2016-10-25 11:26] LABS: ABNORMAL IP MESSAGE 1; BASOPHILS % 0.3 % (0.0-2.0); EOSINOPHILS # 0.2 10^3/ul (0.0-0.5); EOSINOPHILS % 6.3 % (0.0-7.0); HEMOGLOBIN 8.8 g/dl (14.0-18.0); LYMPHOCYTES # 0.4 10^3/ul (0.8-2.9); LYMPHOCYTES % 11.6 % (15.0-51.0); MEAN CORPUSCULAR HEMOGLOBIN 31.3 pg (29.0-33.0); MEAN CORPUSCULAR HGB CONC 31.4 g/dl (32.0-37.0); MEAN CORPUSCULAR VOLUME 99.6 fl (82.0-101.0); MEAN PLATELET VOLUME 11.9 fl (7.4-10.4); MONOCYTE # 0.4 10^3/ul (0.3-0.9); MONOCYTES % 10.6 % (0.0-11.0); NEUTROPHIL # 2.7 10^3/ul (1.6-7.5); NEUTROPHILS % 70.7 % (39.0-77.0); PLATELET COUNT 146 10^3/UL (140-415); POSITIVE DIFF @See below; RED BLOOD COUNT 2.81 10^6/ul (4.70-6.10); RED CELL DISTRIBUTION WIDTH 13.7 % (11.5-14.5); WHITE BLOOD COUNT 3.8 10^3/ul (4.8-10.8)
[2016-10-25 11:33] LABS: CALCIUM 8.7 mg/dl (8.4-10.2); CREATININE 1.22 mg/dl (0.61-1.24); POTASSIUM 4.6 mmol/L (3.5-5.1)
--- NOTE | 2016-10-25 12:30 | PN ---
Date/Time of Note Date/Time of Note DATE: 10/25/16 TIME: 12:29 Assessment/Plan VTE Prophylaxis VTE Prophylaxis Intervention: SCD's Lines/Catheters IV [facility]ter [facility] (from [facility]): PICC Line Central line still needed: Yes Assessment/Plan Chief Complaint/Hosp Course Pending urology procedure. Assessment/Plan - Sepsis due to HCAP, urinary tract infection, resolving. Dr. Maciel is following in infection disease consultation. Continue antibiotics per ID. - Neurogenic bladder with suprapubic catheter. - Left renal nephrolithiasis, Dr Marquez is following in urology consultation plans for lithotripsy procedure tomorrow. - Acute kidney injury on chronic kidney disease. Continue to monitor renal function. - Status post right nephrectomy - Ventilator-dependent respiratory failure with tracheostomy. - Dysphagia with percutaneous endoscopic gastrostomy tube. - Multiple decubitus ulcers present on admission. - Cervical spine injury with paraplegia. - Bipolar disorder with psychosis. Further recommendations based on clinical course. Plan of care discussed with Dr. Barreto. Problems: Exam/Review of Systems Vital Signs Vitals Vital Signs Date Time Temp Pulse Resp B/P Pulse Ox O2 Delivery O2 Flow Rate FiO2 10/25/16 11:39 97.9 91 16 106/73 96 10/25/16 11:00 45 10/23/16 21:18 Room Air Intake and Output 10/24/16 10/24/16 10/25/16 15:00 23:00 07:00 Intake Total 630 ml 1140 ml Output Total 1750 ml 2500 ml Balance -1120 ml -1360 ml Exam Constitutional: alert Neck: other (Urostomy), supple Respiratory: diminished breath sounds Cardiovascular: nl pulses, regular rate and rhythm Gastrointestinal: non-tender, other (G-tube), soft Extremities: normal pulses Skin: other (Triple decubitus ulcers) Results Result Diagram: 10/25/16 1100 10/25/16 1100 Results 24 hrs Laboratory Tests Test 10/24/16 19:14 10/25/16 11:00 Vancomycin Level Trough 12.2 White Blood Count 3.8 L Red Blood Count 2.81 L Hemoglobin 8.8 L Hematocrit 28.0 L Mean Corpuscular Volume 99.6 Mean Corpuscular Hemoglobin 31.3 Mean Corpuscular Hemoglobin Concent 31.4 L Red Cell Distribution Width 13.7 Platelet Count 146 # Mean Platelet Volume 11.9 H Neutrophils % 70.7 Lymphocytes % 11.6 L Monocytes % 10.6 Eosinophils % 6.3 Basophils % 0.3 Nucleated Red Blood Cells % 0.0 Neutrophils # 2.7 Lymphocytes # 0.4 L Monocytes # 0.4 Eosinophils # 0.2 Basophils # 0.0 Nucleated Red Blood Cells # 0.0 Sodium Level 142 Potassium Level 4.6 Chloride Level 112 H Carbon Dioxide Level 26 Anion Gap 9 Blood Urea Nitrogen 35 H Creatinine 1.22 Glucose Level 92 Calcium Level 8.7 Medications Medications Current Medications Dextrose (D50w Syringe) ONCE PRN IV POC BLOOD GLUCOSE <250 MG/DL; Start at 06:00 Hydromorphone HCl (Dilaudid) 1 mg Q4H PRN IV PAIN Last administered on 09:48; Admin Dose 1 MG; Start 10/20/16 at 10:00 Acetaminophen (Tylenol Liquid) 650 mg Q4H PRN GTB MILD PAIN LEVEL 1-3; Start at 13:30 Ascorbic Acid (Vitamin C) 500 mg DAILY GTB Last administered on 10/25/16 08:53 ; Admin Dose 500 MG; Start 10/20/16 at 14:00 Bisacodyl (Dulcolax Supp) 10 mg Q24H PRN [place] CONSTIPATION; Start 10/20/16 at 13: 30 Citric Acid/ Sodium Citrate (Bicitra Liquid (Ped)) 10 meq TID GTB Last administered on 10/24/16 13:31; Admin Dose 10 MEQ; Start 10/20/16 at 21:00 Docusate Sodium (Colace Liquid Cup) 200 mg QHS GTB Last administered on 22:56; Admin Dose 200 MG; Start 10/20/16 at 21:00 Enoxaparin Sodium (Lovenox) 30 mg DAILY SC ; Start 10/21/16 at 09:00; Status Future Hold Magnesium Hydroxide (Milk Of Mag) 30 ml DAILY PRN GTB CONSTIPATION; Start 10/20 at 13:30 Lansoprazole (Prevacid) 30 mg DAILY@06 GTB Last administered on 10/25/16 05:00 ; Admin Dose 30 MG; Start 10/21/16 at 06:00 Polyethylene Glycol (Miralax) 17 gm DAILY GTB Last administered on 10/25/16 08 :53; Admin Dose 17 GM; Start 10/20/16 at 13:30 Zinc Sulfate (Zinc Sulfate) 220 mg DAILY GTB Last administered on 10/25/16 08: 53; Admin Dose 220 MG; Start 10/21/16 at 09:00 Multivit/Ca Carb/ B Cmplx/FA/Prenat (Lilibeth-Linn) 1 tab DAILY GTB Last administered on 10/25/16 08:53; Admin Dose 1 TAB; Start 10/21/16 at 09:00 Acetaminophen/ Hydrocodone Bitart ([place] (5/325)) 1 tab Q6 PRN GTB PAIN LEVEL 1 -5; Start 10/20/16 at 14:00 Gabapentin (Neurontin Liquid) 100 mg TID GTB Last administered on 10/25/16 08: 56; Admin Dose 100 MG; Start 10/20/16 at 21:00 Risperidone (Risperdal) 1 mg QHS GTB Last administered on 10/24/16 22:56; Admin Dose 1 MG; Start 10/20/16 at 21:00 Ferrous Sulfate 300 mg 300 mg DAILY GTB Last administered on 10/25/16 08:53; Admin Dose 300 MG; Start 10/20/16 at 14:07 Meropenem/Sodium Chloride 50 ml @ 100 mls/hr Q12 IVPB Last administered on 09:48; Admin Dose 100 MLS/HR; Start 10/20/16 at 21:00 Vancomycin HCl/ Sodium Chloride (Vancocin/NS) 250 ml @ 83.333 mls/ hr Q48H IVPB Last administered on 10/24/16 22:55; Admin Dose 83.333 MLS/HR; Start at 20:00 Miscellaneous Information (Pending [facility] Order For Wound Care) This patient noriega... PRN PRN XX WOUND CARE; Start 10/20/16 at 20:00 Zolpidem Tartrate (Ambien) 5 mg HS PRN PO INSOMNIA Last administered on 22:56; Admin Dose 5 MG; Start 10/20/16 at 21:00 Permethrin (Elimite 5% Cr) 1 applic Q7D TOP Last administered on 10/21/16 16: 35; Admin Dose 1 APPLIC; Start 10/21/16 at 16:00; Stop 10/28/16 at 16:01 Mupirocin (Bactroban) 1 applic BID TOP Last administered on 10/25/16 08:54; Admin Dose 1 APPLIC; Start 10/22/16 at 21:00 Ivermectin 12 mg 12 mg Q7D PO Last administered on 10/22/16 13:18; Admin Dose 12 MG; Start 10/22/16 at 13:00; Stop 10/29/16 at 13:01 Dextrose/Sodium Chloride (D5-1/2ns) 1,000 ml @ 70 mls/hr [id number] IV Last administered on 10/24/16 22:57; Admin Dose 70 MLS/HR; Start 10/22/16 at 14:30 AISSATOU DUNCAN Oct 25, 2016 12:30
--- NOTE | 2016-10-25 14:19 | CONS ---
Date/Time of Note Date/Time of Note DATE: 10/25/16 TIME: 14:18 Assessment/Plan Assessment/Plan Additional Assessment/Plan 1. Acute kidney injury secondary to severe prerenal azotemia and possible acute tubular necrosis. 2. Acute uremia with a BUN of 46, Cr 1.42 3. Acute hyperkalemia- resolved 5. 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 6. History of neurogenic bladder with urinary retention, status post suprapubic catheter. 7. History of previous recurrent urinary tract infections. 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 9. 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 10. Other medical history includes anxiety, depression, bipolar disorder, psychosis. 11. History of right nephrectomy with left renal nephrolithiasis and a left renal cyst measuring 5.3 cm in size. Plan: - Cr improved to 1.22- pt has only one kidney , Continue IVF D51/2NS at 75 cc/ hr - plan is to d/c IVF tomorrow AM -renal function to improving with IV fluids - BP stable - will follow up Consultation Date/Type/Reason Admit Date/Time Oct 21, 2016 at 15:46 Initial Consult Date 10/20/16 Type of Consultation: NEPHROLOGY Referring Provider: JOSÉ ANTONIO MIRZA MD 24 HR Interval Summary Free Text/Dictation Cr improve to 1.22 Exam/Review of Systems Vital Signs Vitals Vital Signs Date Time Temp Pulse Resp B/P Pulse Ox O2 Delivery O2 Flow Rate FiO2 10/25/16 13:15 101 32 96 45 10/25/16 11:39 97.9 106/73 10/23/16 21:18 Room Air Intake and Output 10/24/16 10/24/16 10/25/16 15:00 23:00 07:00 Intake Total 630 ml 1140 ml Output Total 1750 ml 2500 ml Balance -1120 ml -1360 ml Exam Constitutional: alert ENMT: nl external ears & nose, other (+ tracheostomy on ventilator ) Neck: supple Respiratory: clear to auscultation, crackles/rales Cardiovascular: nl pulses, regular rate and rhythm Gastrointestinal: non-tender, other (+ G tube placement ), soft Musculoskeletal: quadruplegic Results Result Diagram: 10/25/16 1100 10/25/16 1100 Results 24 hrs Laboratory Tests Test 10/24/16:14 10/25/16 11:00 Vancomycin Level Trough 12.2 White Blood Count 3.8 L Red Blood Count 2.81 L Hemoglobin 8.8 L Hematocrit 28.0 L Mean Corpuscular Volume 99.6 Mean Corpuscular Hemoglobin 31.3 Mean Corpuscular Hemoglobin Concent 31.4 L Red Cell Distribution Width 13.7 Platelet Count 146 # Mean Platelet Volume 11.9 H Neutrophils % 70.7 Lymphocytes % 11.6 L Monocytes % 10.6 Eosinophils % 6.3 Basophils % 0.3 Nucleated Red Blood Cells % 0.0 Neutrophils # 2.7 Lymphocytes # 0.4 L Monocytes # 0.4 Eosinophils # 0.2 Basophils # 0.0 Nucleated Red Blood Cells # 0.0 Sodium Level 142 Potassium Level 4.6 Chloride Level 112 H Carbon Dioxide Level 26 Anion Gap 9 Blood Urea Nitrogen 35 H Creatinine 1.22 Glucose Level 92 Calcium Level 8.7 Medications Medications Current Medications Dextrose (D50w Syringe) ONCE PRN IV POC BLOOD GLUCOSE <250 MG/DL; Start at 06:00 Hydromorphone HCl (Dilaudid) 1 mg Q4H PRN IV PAIN Last administered on 09:48; Admin Dose 1 MG; Start 10/20/16 at 10:00 Acetaminophen (Tylenol Liquid) 650 mg Q4H PRN GTB MILD PAIN LEVEL 1-3; Start at 13:30 Ascorbic Acid (Vitamin C) 500 mg DAILY GTB Last administered on 10/25/16 08:53 ; Admin Dose 500 MG; Start 10/20/16 at 14:00 Bisacodyl (Dulcolax Supp) 10 mg Q24H PRN [place] CONSTIPATION; Start 10/20/16 at 13: 30 Citric Acid/ Sodium Citrate (Bicitra Liquid (Ped)) 10 meq TID GTB Last administered on 10/24/16 13:31; Admin Dose 10 MEQ; Start 10/20/16 at 21:00 Docusate Sodium (Colace Liquid Cup) 200 mg QHS GTB Last administered on 22:56; Admin Dose 200 MG; Start 10/20/16 at 21:00 Enoxaparin Sodium (Lovenox) 30 mg DAILY SC ; Start 10/21/16 at 09:00; Status Future Hold Magnesium Hydroxide (Milk Of Mag) 30 ml DAILY PRN GTB CONSTIPATION; Start 10/20 at 13:30 Lansoprazole (Prevacid) 30 mg DAILY@06 GTB Last administered on 10/25/16 05:00 ; Admin Dose 30 MG; Start 10/21/16 at 06:00 Polyethylene Glycol (Miralax) 17 gm DAILY GTB Last administered on 10/25/16 08 :53; Admin Dose 17 GM; Start 10/20/16 at 13:30 Zinc Sulfate (Zinc Sulfate) 220 mg DAILY GTB Last administered on 10/25/16 08: 53; Admin Dose 220 MG; Start 10/21/16 at 09:00 Multivit/Ca Carb/ B Cmplx/FA/Prenat (Lilibeth-Linn) 1 tab DAILY GTB Last administered on 10/25/16 08:53; Admin Dose 1 TAB; Start 10/21/16 at 09:00 Acetaminophen/ Hydrocodone Bitart ([place] (5/325)) 1 tab Q6 PRN GTB PAIN LEVEL 1 -5; Start 10/20/16 at 14:00 Gabapentin (Neurontin Liquid) 100 mg TID GTB Last administered on 10/25/16 08: 56; Admin Dose 100 MG; Start 10/20/16 at 21:00 Risperidone (Risperdal) 1 mg QHS GTB Last administered on 10/24/16 22:56; Admin Dose 1 MG; Start 10/20/16 at 21:00 Ferrous Sulfate 300 mg 300 mg DAILY GTB Last administered on 10/25/16 08:53; Admin Dose 300 MG; Start 10/20/16 at 14:07 Meropenem/Sodium Chloride 50 ml @ 100 mls/hr Q12 IVPB Last administered on 09:48; Admin Dose 100 MLS/HR; Start 10/20/16 at 21:00 Vancomycin HCl/ Sodium Chloride (Vancocin/NS) 250 ml @ 83.333 mls/ hr Q48H IVPB Last administered on 10/24/16 22:55; Admin Dose 83.333 MLS/HR; Start at 20:00 Miscellaneous Information (Pending [facility] Order For Wound Care) This patient noriega... PRN PRN XX WOUND CARE; Start 10/20/16 at 20:00 Zolpidem Tartrate (Ambien) 5 mg HS PRN PO INSOMNIA Last administered on 22:56; Admin Dose 5 MG; Start 10/20/16 at 21:00 Permethrin (Elimite 5% Cr) 1 applic Q7D TOP Last administered on 10/21/16 16: 35; Admin Dose 1 APPLIC; Start 10/21/16 at 16:00; Stop 10/28/16 at 16:01 Mupirocin (Bactroban) 1 applic BID TOP Last administered on 10/25/16 08:54; Admin Dose 1 APPLIC; Start 10/22/16 at 21:00 Ivermectin 12 mg 12 mg Q7D PO Last administered on 10/22/16 13:18; Admin Dose 12 MG; Start 10/22/16 at 13:00; Stop 10/29/16 at 13:01 Dextrose/Sodium Chloride (D5-1/2ns) 1,000 ml @ 70 mls/hr [id number] IV Last administered on 10/24/16 22:57; Admin Dose 70 MLS/HR; Start 10/22/16 at 14:30 TIARA CISNEROS MD Oct 25, 2016 14:19
[2016-10-25] MEDS: DEXTROSE 5%-0.45% NACL 1,000 ML IV SCH (14:23)
--- NOTE | 2016-10-25 15:18 | CONS ---
Date/Time of Note Date/Time of Note DATE: 10/25/16 TIME: 15:13 Assessment/Plan Assessment/Plan Chief Complaint/Hosp Course SUBJECTIVE DATA: No acute changes overnight. No fevers. Patient looks comfortable. ANTIMICROBIALS: Patient is on 1. Vancomycin 2. Meropenem. INDWELLINGS: Trach, PEG, suprapubic catheter. OBJECTIVE DATA: GENERAL: Chronically ill-appearing, middle-aged man, who is in no distress. HEENT: Head atraumatic, normocephalic. Sclerae anicteric. Buccal mucosa dry. NECK: Supple. CHEST: Rise symmetrical. Breath sounds diminished at the bases. HEART: S1, S2. ABDOMEN: Soft, bowel sounds present. EXTREMITIES: Contracted, wasted. ASSESSMENT: 1. Resolving sepsis. 2. Healthcare-associated pneumonia. 3. Possible recurrent urinary tract infection, no cultures done. 4. Scabies, status post Elimite, getting ivermectin weekly. 5. Quadriplegia. 6. History of right nephrectomy. 7. Multiple chronic wounds. 8. ALLERGY TO TETRACYCLINE. PLAN: Patient remains stable. We will continue him on current antibiotics. Continue ivermectin weekly for a total of 3 weeks. Patient is followed by Urology and scheduled for urologic procedure Problems: Consultation Date/Type/Reason Admit Date/Time Oct 21, 2016 at 15:46 Initial Consult Date 10/20/16 Type of Consultation: id Referring Provider: JOSÉ ANTONIO MIRZA MD Exam/Review of Systems Vital Signs Vitals Vital Signs Date Time Temp Pulse Resp B/P Pulse Ox O2 Delivery O2 Flow Rate FiO2 10/25/16 13:15 101 32 96 45 10/25/16 11:39 97.9 106/73 10/23/16 21:18 Room Air Intake and Output 10/24/16 10/24/16 10/25/16 15:00 23:00 07:00 Intake Total 630 ml 1140 ml Output Total 1750 ml 2500 ml Balance -1120 ml -1360 ml Results Result Diagram: 10/25/16 1100 10/25/16 1100 Results 24 hrs Laboratory Tests Test 10/24/16 19:14 10/25/16 11:00 Vancomycin Level Trough 12.2 White Blood Count 3.8 L Red Blood Count 2.81 L Hemoglobin 8.8 L Hematocrit 28.0 L Mean Corpuscular Volume 99.6 Mean Corpuscular Hemoglobin 31.3 Mean Corpuscular Hemoglobin Concent 31.4 L Red Cell Distribution Width 13.7 Platelet Count 146 # Mean Platelet Volume 11.9 H Neutrophils % 70.7 Lymphocytes % 11.6 L Monocytes % 10.6 Eosinophils % 6.3 Basophils % 0.3 Nucleated Red Blood Cells % 0.0 Neutrophils # 2.7 Lymphocytes # 0.4 L Monocytes # 0.4 Eosinophils # 0.2 Basophils # 0.0 Nucleated Red Blood Cells # 0.0 Sodium Level 142 Potassium Level 4.6 Chloride Level 112 H Carbon Dioxide Level 26 Anion Gap 9 Blood Urea Nitrogen 35 H Creatinine 1.22 Glucose Level 92 Calcium Level 8.7 Medications Medications Current Medications Dextrose (D50w Syringe) ONCE PRN IV POC BLOOD GLUCOSE <250 MG/DL; Start at 06:00 Hydromorphone HCl (Dilaudid) 1 mg Q4H PRN IV PAIN Last administered on 14:22; Admin Dose 1 MG; Start 10/20/16 at 10:00 Acetaminophen (Tylenol Liquid) 650 mg Q4H PRN GTB MILD PAIN LEVEL 1-3; Start at 13:30 Ascorbic Acid (Vitamin C) 500 mg DAILY GTB Last administered on 10/25/16 08:53 ; Admin Dose 500 MG; Start 10/20/16 at 14:00 Bisacodyl (Dulcolax Supp) 10 mg Q24H PRN [place] CONSTIPATION; Start 10/20/16 at 13: 30 Citric Acid/ Sodium Citrate (Bicitra Liquid (Ped)) 10 meq TID GTB Last administered on 10/24/16 13:31; Admin Dose 10 MEQ; Start 10/20/16 at 21:00 Docusate Sodium (Colace Liquid Cup) 200 mg QHS GTB Last administered on 22:56; Admin Dose 200 MG; Start 10/20/16 at 21:00 Enoxaparin Sodium (Lovenox) 30 mg DAILY SC ; Start 10/21/16 at 09:00; Status Future Hold Magnesium Hydroxide (Milk Of Mag) 30 ml DAILY PRN GTB CONSTIPATION; Start 10/20 at 13:30 Lansoprazole (Prevacid) 30 mg DAILY@06 GTB Last administered on 10/25/16 05:00 ; Admin Dose 30 MG; Start 10/21/16 at 06:00 Polyethylene Glycol (Miralax) 17 gm DAILY GTB Last administered on 10/25/16 08 :53; Admin Dose 17 GM; Start 10/20/16 at 13:30 Zinc Sulfate (Zinc Sulfate) 220 mg DAILY GTB Last administered on 10/25/16 08: 53; Admin Dose 220 MG; Start 10/21/16 at 09:00 Multivit/Ca Carb/ B Cmplx/FA/Prenat (Lilibeth-Linn) 1 tab DAILY GTB Last administered on 10/25/16 08:53; Admin Dose 1 TAB; Start 10/21/16 at 09:00 Acetaminophen/ Hydrocodone Bitart ([place] (5/325)) 1 tab Q6 PRN GTB PAIN LEVEL 1 -5; Start 10/20/16 at 14:00 Gabapentin (Neurontin Liquid) 100 mg TID GTB Last administered on 10/25/16 08: 56; Admin Dose 100 MG; Start 10/20/16 at 21:00 Risperidone (Risperdal) 1 mg QHS GTB Last administered on 10/24/16 22:56; Admin Dose 1 MG; Start 10/20/16 at 21:00 Ferrous Sulfate 300 mg 300 mg DAILY GTB Last administered on 10/25/16 08:53; Admin Dose 300 MG; Start 10/20/16 at 14:07 Meropenem/Sodium Chloride 50 ml @ 100 mls/hr Q12 IVPB Last administered on 09:48; Admin Dose 100 MLS/HR; Start 10/20/16 at 21:00 Vancomycin HCl/ Sodium Chloride (Vancocin/NS) 250 ml @ 83.333 mls/ hr Q48H IVPB Last administered on 10/24/16 22:55; Admin Dose 83.333 MLS/HR; Start at 20:00 [facility] This patient noriega... PRN PRN XX WOUND CARE; Start 10/20/16 at 20:00 Zolpidem Tartrate (Ambien) 5 mg HS PRN PO INSOMNIA Last administered on 22:56; Admin Dose 5 MG; Start 10/20/16 at 21:00 Permethrin (Elimite 5% Cr) 1 applic Q7D TOP Last administered on 10/21/16 16: 35; Admin Dose 1 APPLIC; Start 10/21/16 at 16:00; Stop 10/28/16 at 16:01 Mupirocin (Bactroban) 1 applic BID TOP Last administered on 10/25/16 08:54; Admin Dose 1 APPLIC; Start 10/22/16 at 21:00 Ivermectin 12 mg 12 mg Q7D PO Last administered on 10/22/16 13:18; Admin Dose 12 MG; Start 10/22/16 at 13:00; Stop 10/29/16 at 13:01 Dextrose/Sodium Chloride (D5-1/2ns) 1,000 ml @ 70 mls/hr [id number] IV Last administered on 10/25/16 14:23; Admin Dose 70 MLS/HR; Start 10/22/16 at 14:30 REGINALDO CHERY NP Oct 25, 2016 15:18
--- NOTE | 2016-10-25 16:21 | CONS ---
Date/Time of Note Date/Time of Note DATE: 10/25/16 TIME: 16:20 Assessment/Plan Assessment/Plan Additional Assessment/Plan Sepsis/SIRS Hypotension, improved Sinus tachycardia, improved Acute kidney injury, improved Respiratory Failure Preserved EF on echocardiogram March 02, 2016 History of intermittent Mobitz I Chronic pain syndrome -Heart rate trend overall improved. Continue to hold any antihypertensive medications. Antibiotics as per primary team. Consultation Date/Type/Reason Admit Date/Time Oct 21, 2016 at 15:46 Initial Consult Date 10/20/16 Type of Consultation: cv Referring Provider: JOSÉ ANTONIO MIRZA MD 24 HR Interval Summary Free Text/Dictation Patient seen and examined. Denies palpitations, shortness of breath or chest pain Exam/Review of Systems Vital Signs Vitals Vital Signs Date Time Temp Pulse Resp B/P Pulse Ox O2 Delivery O2 Flow Rate FiO2 10/25/16 16:03 98.2 74 18 140/88 97 10/25/16 15:10 45 10/23/16 21:18 Room Air Intake and Output 10/24/16 10/24/16 10/25/16 15:00 23:00 07:00 Intake Total 630 ml 1140 ml Output Total 1750 ml 2500 ml Balance -1120 ml -1360 ml Exam No apparent distress Constitutional: alert, frail, oriented Head: normocephalic Respiratory: other (Coarse breath sounds bilaterally, no wheezing) Cardiovascular: other (S1-S2 heard), regular rate and rhythm Gastrointestinal: bowel sounds, non-tender, soft Extremities: other (No significant edema) Results Result Diagram: 10/25/16 1100 10/25/16 1100 Results 24 hrs Laboratory Tests Test 10/24/16 19:14 10/25/16 11:00 Vancomycin Level Trough 12.2 White Blood Count 3.8 L Red Blood Count 2.81 L Hemoglobin 8.8 L Hematocrit 28.0 L Mean Corpuscular Volume 99.6 Mean Corpuscular Hemoglobin 31.3 Mean Corpuscular Hemoglobin Concent 31.4 L Red Cell Distribution Width 13.7 Platelet Count 146 # Mean Platelet Volume 11.9 H Neutrophils % 70.7 Lymphocytes % 11.6 L Monocytes % 10.6 Eosinophils % 6.3 Basophils % 0.3 Nucleated Red Blood Cells % 0.0 Neutrophils # 2.7 Lymphocytes # 0.4 L Monocytes # 0.4 Eosinophils # 0.2 Basophils # 0.0 Nucleated Red Blood Cells # 0.0 Sodium Level 142 Potassium Level 4.6 Chloride Level 112 H Carbon Dioxide Level 26 Anion Gap 9 Blood Urea Nitrogen 35 H Creatinine 1.22 Glucose Level 92 Calcium Level 8.7 Medications Medications Current Medications Dextrose (D50w Syringe) ONCE PRN IV POC BLOOD GLUCOSE <250 MG/DL; Start at 06:00 Hydromorphone HCl (Dilaudid) 1 mg Q4H PRN IV PAIN Last administered on 14:22; Admin Dose 1 MG; Start 10/20/16 at 10:00 Acetaminophen (Tylenol Liquid) 650 mg Q4H PRN GTB MILD PAIN LEVEL 1-3; Start at 13:30 Ascorbic Acid (Vitamin C) 500 mg DAILY GTB Last administered on 10/25/16 08:53 ; Admin Dose 500 MG; Start 10/20/16 at 14:00 Bisacodyl (Dulcolax Supp) 10 mg Q24H PRN [place] CONSTIPATION; Start 10/20/16 at 13: 30 Citric Acid/ Sodium Citrate (Bicitra Liquid (Ped)) 10 meq TID GTB Last administered on 10/24/16 13:31; Admin Dose 10 MEQ; Start 10/20/16 at 21:00 Docusate Sodium (Colace Liquid Cup) 200 mg QHS GTB Last administered on 22:56; Admin Dose 200 MG; Start 10/20/16 at 21:00 Enoxaparin Sodium (Lovenox) 30 mg DAILY SC ; Start 10/21/16 at 09:00; Status Future Hold Magnesium Hydroxide (Milk Of Mag) 30 ml DAILY PRN GTB CONSTIPATION; Start 10/20 at 13:30 Lansoprazole (Prevacid) 30 mg DAILY@06 GTB Last administered on 10/25/16 05:00 ; Admin Dose 30 MG; Start 10/21/16 at 06:00 Polyethylene Glycol (Miralax) 17 gm DAILY GTB Last administered on 10/25/16 08 :53; Admin Dose 17 GM; Start 10/20/16 at 13:30 Zinc Sulfate (Zinc Sulfate) 220 mg DAILY GTB Last administered on 10/25/16 08: 53; Admin Dose 220 MG; Start 10/21/16 at 09:00 Multivit/Ca Carb/ B Cmplx/FA/Prenat (Lilibeth-Linn) 1 tab DAILY GTB Last administered on 10/25/16 08:53; Admin Dose 1 TAB; Start 10/21/16 at 09:00 Acetaminophen/ Hydrocodone Bitart ([place] (5/325)) 1 tab Q6 PRN GTB PAIN LEVEL 1 -5; Start 10/20/16 at 14:00 Gabapentin (Neurontin Liquid) 100 mg TID GTB Last administered on 10/25/16 08: 56; Admin Dose 100 MG; Start 10/20/16 at 21:00 Risperidone (Risperdal) 1 mg QHS GTB Last administered on 10/24/16 22:56; Admin Dose 1 MG; Start 10/20/16 at 21:00 Ferrous Sulfate 300 mg 300 mg DAILY GTB Last administered on 10/25/16 08:53; Admin Dose 300 MG; Start 10/20/16 at 14:07 Meropenem/Sodium Chloride 50 ml @ 100 mls/hr Q12 IVPB Last administered on 09:48; Admin Dose 100 MLS/HR; Start 10/20/16 at 21:00 Vancomycin HCl/ Sodium Chloride (Vancocin/NS) 250 ml @ 83.333 mls/ hr Q48H IVPB Last administered on 10/24/16 22:55; Admin Dose 83.333 MLS/HR; Start at 20:00 Miscellaneous [facility] This patient noriega... PRN PRN XX WOUND CARE; Start 10/20/16 at 20:00 Zolpidem Tartrate (Ambien) 5 mg HS PRN PO INSOMNIA Last administered on 22:56; Admin Dose 5 MG; Start 10/20/16 at 21:00 Permethrin (Elimite 5% Cr) 1 applic Q7D TOP Last administered on 10/21/16 16: 35; Admin Dose 1 APPLIC; Start 10/21/16 at 16:00; Stop 10/28/16 at 16:01 Mupirocin (Bactroban) 1 applic BID TOP Last administered on 10/25/16 08:54; Admin Dose 1 APPLIC; Start 10/22/16 at 21:00 Ivermectin 12 mg 12 mg Q7D PO Last administered on 10/22/16 13:18; Admin Dose 12 MG; Start 10/22/16 at 13:00; Stop 10/29/16 at 13:01 Dextrose/Sodium Chloride (D5-1/2ns) 1,000 ml @ 70 mls/hr [id number] IV Last administered on 10/25/16 14:23; Admin Dose 70 MLS/HR; Start 10/22/16 at 14:30 Deandre Chavze DO Oct 25, 2016 16:21
--- NOTE | 2016-10-25 17:34 | PN ---
Date/Time of Note Date/Time of Note DATE: 10/25/16 TIME: 17:26 Assessment/Plan VTE Prophylaxis VTE Prophylaxis Intervention: other Lines/Catheters IV [facility] PICC Line Central line still needed: Yes Urinary Cath still in place: Yes Reason Cath still needed: urinary retention Assessment/Plan Chief Complaint/Hosp Course This is a 40-year-old male who was admitted to the hospital from a nursing facility because of hypoxemia. 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 Patient has a tracheostomy and also has a suprapubic tube. Patient has had a right nephrectomy. He only has a left kidney and KUB and CT scan showed that he has a JJ stent. The CT scan showed the JJ stent to be in good place with stones in the lower pole of the left kidney and there is 1 stone close to the proximal curl of the stent .The stent appeared to be in good position. I talked to the patient and he said he has had it for over 1 year and it was inserted for him in a hospital in [place] He was scheduled to do extracorporeal shockwave lithotripsy to the proximal curl of the JJ stent and a cystoscopy most likely through the suprapubic tract or through the urethra if it is open to see if we could remove and may be replace the ureteral JJ stent or just remove it..That was cancelled as the conservator was not available to give consent for the surgery and anesthesia. The hospital staff have called and left messages but did not receive a call back. Problems: Subjective 24 Hr Interval Summary Constitutional: no complaints Eyes: no complaints ENT: no complaints Respiratory: no complaints, other (patient on a respirator) Cardiovascular: no complaints Gastrointestinal: no complaints Genitourinary: other (suprapubic tube) Exam/Review of Systems Vital Signs Vitals Vital Signs Date Time Temp Pulse Resp B/P Pulse Ox O2 Delivery O2 Flow Rate FiO2 10/25/16 16:03 98.2 74 18 140/88 97 10/25/16 15:10 45 10/23/16 21:18 Room Air Intake and Output 10/24/16 10/24/16 10/25/16 15:00 23:00 07:00 Intake Total 630 ml 1140 ml Output Total 1750 ml 2500 ml Balance -1120 ml -1360 ml Exam Constitutional: alert Psych: no complaints Head: normocephalic Eyes: nl conjunctiva ENMT: other (tracheostomy) Neck: supple Respiratory: normal air movement Cardiovascular: No edema Gastrointestinal: soft Genitourinary - Male: other (suprapubic tube draining well,clear urine) Extremities: No edema Neurological: other (paraplegic) Results Result Diagram: 10/25/16 1100 10/25/16 1100 Results 24 hrs Laboratory Tests Test 10/24/16 19:14 10/25/16 11:00 Vancomycin Level Trough 12.2 White Blood Count 3.8 L Red Blood Count 2.81 L Hemoglobin 8.8 L Hematocrit 28.0 L Mean Corpuscular Volume 99.6 Mean Corpuscular Hemoglobin 31.3 Mean Corpuscular Hemoglobin Concent 31.4 L Red Cell Distribution Width 13.7 Platelet Count 146 # Mean Platelet Volume 11.9 H Neutrophils % 70.7 Lymphocytes % 11.6 L Monocytes % 10.6 Eosinophils % 6.3 Basophils % 0.3 Nucleated Red Blood Cells % 0.0 Neutrophils # 2.7 Lymphocytes # 0.4 L Monocytes # 0.4 Eosinophils # 0.2 Basophils # 0.0 Nucleated Red Blood Cells # 0.0 Sodium Level 142 Potassium Level 4.6 Chloride Level 112 H Carbon Dioxide Level 26 Anion Gap 9 Blood Urea Nitrogen 35 H Creatinine 1.22 Glucose Level 92 Calcium Level 8.7 Medications Medications Current Medications Dextrose (D50w Syringe) ONCE PRN IV POC BLOOD GLUCOSE <250 MG/DL; Start at 06:00 Hydromorphone HCl (Dilaudid) 1 mg Q4H PRN IV PAIN Last administered on 14:22; Admin Dose 1 MG; Start 10/20/16 at 10:00 Acetaminophen (Tylenol Liquid) 650 mg Q4H PRN GTB MILD PAIN LEVEL 1-3; Start at 13:30 Ascorbic Acid (Vitamin C) 500 mg DAILY GTB Last administered on 10/25/16 08:53 ; Admin Dose 500 MG; Start 10/20/16 at 14:00 Bisacodyl (Dulcolax Supp) 10 mg Q24H PRN [place] CONSTIPATION; Start 10/20/16 at 13: 30 Citric Acid/ Sodium Citrate (Bicitra Liquid (Ped)) 10 meq TID GTB Last administered on 10/24/16 13:31; Admin Dose 10 MEQ; Start 10/20/16 at 21:00 Docusate Sodium (Colace Liquid Cup) 200 mg QHS GTB Last administered on 22:56; Admin Dose 200 MG; Start 10/20/16 at 21:00 Enoxaparin Sodium (Lovenox) 30 mg DAILY SC ; Start 10/21/16 at 09:00; Status Future Hold Magnesium Hydroxide (Milk Of Mag) 30 ml DAILY PRN GTB CONSTIPATION; Start 10/20 at 13:30 Lansoprazole (Prevacid) 30 mg DAILY@06 GTB Last administered on 10/25/16 05:00 ; Admin Dose 30 MG; Start 10/21/16 at 06:00 Polyethylene Glycol (Miralax) 17 gm DAILY GTB Last administered on 10/25/16 08 :53; Admin Dose 17 GM; Start 10/20/16 at 13:30 Zinc Sulfate (Zinc Sulfate) 220 mg DAILY GTB Last administered on 10/25/16 08: 53; Admin Dose 220 MG; Start 10/21/16 at 09:00 Multivit/Ca Carb/ B Cmplx/FA/Prenat (Lilibeth-Linn) 1 tab DAILY GTB Last administered on 10/25/16 08:53; Admin Dose 1 TAB; Start 10/21/16 at 09:00 Acetaminophen/ Hydrocodone Bitart ([place] (5/325)) 1 tab Q6 PRN GTB PAIN LEVEL 1 -5; Start 10/20/16 at 14:00 Gabapentin (Neurontin Liquid) 100 mg TID GTB Last administered on 10/25/16 08: 56; Admin Dose 100 MG; Start 10/20/16 at 21:00 Risperidone (Risperdal) 1 mg QHS GTB Last administered on 10/24/16 22:56; Admin Dose 1 MG; Start 10/20/16 at 21:00 Ferrous Sulfate 300 mg 300 mg DAILY GTB Last administered on 10/25/16 08:53; Admin Dose 300 MG; Start 10/20/16 at 14:07 Meropenem/Sodium Chloride 50 ml @ 100 mls/hr Q12 IVPB Last administered on 09:48; Admin Dose 100 MLS/HR; Start 10/20/16 at 21:00 Vancomycin HCl/ Sodium Chloride (Vancocin/NS) 250 ml @ 83.333 mls/ hr Q48H IVPB Last administered on 10/24/16 22:55; Admin Dose 83.333 MLS/HR; Start at 20:00 Miscellaneous Information (Pending [facility] Order For Wound Care) This patient noriega... PRN PRN XX WOUND CARE; Start 10/20/16 at 20:00 Zolpidem Tartrate (Ambien) 5 mg HS PRN PO INSOMNIA Last administered on 22:56; Admin Dose 5 MG; Start 10/20/16 at 21:00 Permethrin (Elimite 5% Cr) 1 applic Q7D TOP Last administered on 10/21/16 16: 35; Admin Dose 1 APPLIC; Start 10/21/16 at 16:00; Stop 10/28/16 at 16:01 Mupirocin (Bactroban) 1 applic BID TOP Last administered on 10/25/16 08:54; Admin Dose 1 APPLIC; Start 10/22/16 at 21:00 Ivermectin 12 mg 12 mg Q7D PO Last administered on 10/22/16 13:18; Admin Dose 12 MG; Start 10/22/16 at 13:00; Stop 10/29/16 at 13:01 Dextrose/Sodium Chloride (D5-1/2ns) 1,000 ml @ 70 mls/hr [id number] IV Last administered on 10/25/16 14:23; Admin Dose 70 MLS/HR; Start 10/22/16 at 14:30 BHARGAV JIANG MD Oct 25, 2016 17:34
[2016-10-25] MEDS: RISPERIDONE 1 MG TAB GTB SCH (20:43)
[2016-10-25] MEDS: ZOLPIDEM 5 MG TAB PO PRN (20:43)
[2016-10-25] MEDS: HYDROCODONE/APAP (5/325) TAB GTB PRN (20:44)
[2016-10-25] MEDS: DOCUSATE SODIUM 10 MG/ML (10ML CUP) GTB SCH (20:45)
[2016-10-26] VITALS (24 sets, daily range): BP systolic 110–125; BP diastolic 60–87; PULSE 92–120; RESP 19–34
[2016-10-26] MEDS: LEVALBUTEROL (HFA) 15 GM INHALER INH SCH ×4 (01:29→19:34)
[2016-10-26] MEDS: IPRATROPIUM (HFA) 12.9 GM INHALER INH SCH ×4 (01:29→19:33)
[2016-10-26] MEDS: LANSOPRAZOLE 30 MG CAP GTB SCH (05:26)
[2016-10-26] MEDS: DEXTROSE 5%-0.45% NACL 1,000 ML IV SCH (05:26)
[2016-10-26] MEDS: HYDROmorphONE 1 MG/ML SYG IV PRN ×5 (05:27→23:21)
[2016-10-26 08:16] LABS: BASOPHILS % 0.2 % (0.0-2.0); EOSINOPHILS # 0.2 10^3/ul (0.0-0.5); EOSINOPHILS % 3.6 % (0.0-7.0); HEMOGLOBIN 8.2 g/dl (14.0-18.0); LYMPHOCYTES # 0.7 10^3/ul (0.8-2.9); LYMPHOCYTES % 12.2 % (15.0-51.0); MEAN CORPUSCULAR HEMOGLOBIN 29.2 pg (29.0-33.0); MEAN CORPUSCULAR HGB CONC 29.3 g/dl (32.0-37.0); MEAN CORPUSCULAR VOLUME 99.6 fl (82.0-101.0); MEAN PLATELET VOLUME 11.4 fl (7.4-10.4); MONOCYTE # 0.4 10^3/ul (0.3-0.9); NEUTROPHIL # 4.1 10^3/ul (1.6-7.5); NEUTROPHILS % 75.6 % (39.0-77.0); PLATELET COUNT 123 10^3/UL (140-415); RED BLOOD COUNT 2.81 10^6/ul (4.70-6.10); RED CELL DISTRIBUTION WIDTH 14.1 % (11.5-14.5); WHITE BLOOD COUNT 5.5 10^3/ul (4.8-10.8)
[2016-10-26] MEDS: MULTIVIT/CA CARB/B CMPLX/FA TAB GTB SCH (08:30)
[2016-10-26] MEDS: ASCORBIC ACID 500 MG TAB GTB SCH (08:30)
[2016-10-26] MEDS: ZINC SULFATE 220 MG CAP GTB SCH (08:30)
[2016-10-26] MEDS: GABAPENTIN (50 MG/ML PO SYG) GTB SCH ×3 (08:30→21:53)
[2016-10-26] MEDS: FERROUS SULFATE 60 MG/ML 5ML CUP GTB SCH (08:30)
[2016-10-26] MEDS: POLYETHYLENE GLYCOL 17 GM PACKET GTB SCH (08:31)
[2016-10-26] MEDS: MUPIROCIN 2% 22 GM OINT TOP SCH (08:31)
[2016-10-26] MEDS: MEROPENEM 500MG/50 ML (PMX) 50 ML IVPB SCH ×2 (08:31→22:04)
[2016-10-26 08:42] LABS: CALCIUM 8.3 mg/dl (8.4-10.2); CREATININE 1.2 mg/dl (0.61-1.24)
--- NOTE | 2016-10-26 10:43 | CONS ---
Date/Time of Note Date/Time of Note DATE: 10/26/16 TIME: 10:42 Assessment/Plan Assessment/Plan Additional Assessment/Plan Sepsis/SIRS Hypotension, improved Sinus tachycardia, improved Acute kidney injury, improved Respiratory Failure Preserved EF on echocardiogram March 02, 2016 History of intermittent Mobitz I Chronic pain syndrome -Heart rate trend overall improved. Continue to hold any antihypertensive medications. Antibiotics as per primary team. Consultation Date/Type/Reason Admit Date/Time Oct 21, 2016 at 15:46 Initial Consult Date 10/20/16 Type of Consultation: cv Referring Provider: JOSÉ ANTONIO MIRAZ MD 24 HR Interval Summary Free Text/Dictation Denies chest pain, shortness of breath Exam/Review of Systems Vital Signs Vitals Vital Signs Date Time Temp Pulse Resp B/P Pulse Ox O2 Delivery O2 Flow Rate FiO2 10/26/16 08:38 97 10/26/16 08:15 40 10/26/16 07:56 98.3 20 112/74 97 10/25/16 20:30 Mechanical Ventilator Intake and Output 10/25/16 10/25/16 10/26/16 15:00 23:00 07:00 Intake Total 250 ml 1050 ml Output Total 1300 ml 1800 ml Balance -1050 ml -750 ml Exam No apparent distress Constitutional: alert, frail, oriented Head: normocephalic Respiratory: other (Coarse breath sounds bilaterally, no wheezing) Cardiovascular: other (S1-S2 heard), regular rate and rhythm Gastrointestinal: bowel sounds, non-tender, soft Extremities: other (No edema) Results Result Diagram: 10/26/16 0746 10/26/16 0746 Results 24 hrs Laboratory Tests Test 10/25/16 11:00 10/26/16 07:46 White Blood Count 3.8 L 5.5 # Red Blood Count 2.81 L 2.81 L Hemoglobin 8.8 L 8.2 L Hematocrit 28.0 L 28.0 L Mean Corpuscular Volume 99.6 99.6 Mean Corpuscular Hemoglobin 31.3 29.2 Mean Corpuscular Hemoglobin Concent 31.4 L 29.3 L Red Cell Distribution Width 13.7 14.1 Platelet Count 146 # 123 L Mean Platelet Volume 11.9 H 11.4 H Neutrophils % 70.7 75.6 Lymphocytes % 11.6 L 12.2 L Monocytes % 10.6 8.0 Eosinophils % 6.3 3.6 Basophils % 0.3 0.2 Nucleated Red Blood Cells % 0.0 0.0 Neutrophils # 2.7 4.1 Lymphocytes # 0.4 L 0.7 L Monocytes # 0.4 0.4 Eosinophils # 0.2 0.2 Basophils # 0.0 0.0 Nucleated Red Blood Cells # 0.0 0.0 Sodium Level 142 143 Potassium Level 4.6 5.0 Chloride Level 112 H 112 H Carbon Dioxide Level 26 24 Anion Gap 9 12 Blood Urea Nitrogen 35 H 34 H Creatinine 1.22 1.20 Glucose Level 92 109 Calcium Level 8.7 8.3 L Medications Medications Current Medications Dextrose (D50w Syringe) ONCE PRN IV POC BLOOD GLUCOSE <250 MG/DL; Start at 06:00 Hydromorphone HCl (Dilaudid) 1 mg Q4H PRN IV PAIN Last administered on 05:27; Admin Dose 1 MG; Start 10/20/16 at 10:00 Acetaminophen (Tylenol Liquid) 650 mg Q4H PRN GTB MILD PAIN LEVEL 1-3; Start at 13:30 Ascorbic Acid (Vitamin C) 500 mg DAILY GTB Last administered on 10/26/16 08:30 ; Admin Dose 500 MG; Start 10/20/16 at 14:00 Bisacodyl (Dulcolax Supp) 10 mg Q24H PRN [place] CONSTIPATION; Start 10/20/16 at 13: 30 Citric Acid/ Sodium Citrate (Bicitra Liquid (Ped)) 10 meq TID GTB Last administered on 10/24/16 13:31; Admin Dose 10 MEQ; Start 10/20/16 at 21:00 Docusate Sodium (Colace Liquid Cup) 200 mg QHS GTB Last administered on 20:45; Admin Dose 200 MG; Start 10/20/16 at 21:00 Enoxaparin Sodium (Lovenox) 30 mg DAILY SC ; Start 10/21/16 at 09:00; Status Future Hold Magnesium Hydroxide (Milk Of Mag) 30 ml DAILY PRN GTB CONSTIPATION; Start 10/20 at 13:30 Lansoprazole (Prevacid) 30 mg DAILY@06 GTB Last administered on 10/26/16 05:26 ; Admin Dose 30 MG; Start 10/21/16 at 06:00 Polyethylene Glycol (Miralax) 17 gm DAILY GTB Last administered on 10/26/16 08 :31; Admin Dose 17 GM; Start 10/20/16 at 13:30 Zinc Sulfate (Zinc Sulfate) 220 mg DAILY GTB Last administered on 10/26/16 08: 30; Admin Dose 220 MG; Start 10/21/16 at 09:00 Multivit/Ca Carb/ B Cmplx/FA/Prenat (Lilibeth-Linn) 1 tab DAILY GTB Last administered on 10/26/16 08:30; Admin Dose 1 TAB; Start 10/21/16 at 09:00 Acetaminophen/ Hydrocodone Bitart ([place] (5/325)) 1 tab Q6 PRN GTB PAIN LEVEL 1 -5 Last administered on 10/25/16 20:44; Admin Dose 1 TAB; Start 10/20/16 at 14: 00 Gabapentin (Neurontin Liquid) 100 mg TID GTB Last administered on 10/26/16 08: 30; Admin Dose 100 MG; Start 10/20/16 at 21:00 Risperidone (Risperdal) 1 mg QHS GTB Last administered on 10/25/16 20:43; Admin Dose 1 MG; Start 10/20/16 at 21:00 Ferrous Sulfate 300 mg 300 mg DAILY GTB Last administered on 10/26/16 08:30; Admin Dose 300 MG; Start 10/20/16 at 14:07 Meropenem/Sodium Chloride 50 ml @ 100 mls/hr Q12 IVPB Last administered on 08:31; Admin Dose 100 MLS/HR; Start 10/20/16 at 21:00 Vancomycin HCl/ Sodium Chloride (Vancocin/NS) 250 ml @ 83.333 mls/ hr Q48H IVPB Last administered on 10/24/16 22:55; Admin Dose 83.333 MLS/HR; Start at 20:00 [facility]isc[facility] This patient noriega... PRN PRN XX WOUND CARE; Start 10/20/16 at 20:00 Zolpidem Tartrate (Ambien) 5 mg HS PRN PO INSOMNIA Last administered on 20:43; Admin Dose 5 MG; Start 10/20/16 at 21:00 Permethrin (Elimite 5% Cr) 1 applic Q7D TOP Last administered on 10/21/16 16: 35; Admin Dose 1 APPLIC; Start 10/21/16 at 16:00; Stop 10/28/16 at 16:01 Mupirocin (Bactroban) 1 applic BID TOP Last administered on 10/26/16 08:31; Admin Dose 1 APPLIC; Start 10/22/16 at 21:00 Ivermectin 12 mg 12 mg Q7D PO Last administered on 10/22/16 13:18; Admin Dose 12 MG; Start 10/22/16 at 13:00; Stop 10/29/16 at 13:01 Dextrose/Sodium Chloride (D5-1/2ns) 1,000 ml @ 70 mls/hr [id number] IV Last administered on 10/26/16 05:26; Admin Dose 70 MLS/HR; Start 10/22/16 at 14:30 Deandre Chavez DO Oct 26, 2016 10:43
--- NOTE | 2016-10-26 11:07 | PN ---
DATE: 10/26/2016 SUBJECTIVE DATA: The patient is resting comfortably. He is awake, responsive, able to talk through tracheostomy. His breathing appears comfortable with long-term continuous ventilator support through tracheostomy. OBJECTIVE DATA: VITAL SIGNS: Stable. He has not had any fever spikes. Temperature is 98.3, blood pressure 112/74, pulse rate is 95, respirations 20, pulse oximetry shows 97 percent saturation on 40 percent oxygen concentration. NECK: Tracheal secretions are clear. No bleeding is seen. HEART: Regular rhythm. CHEST: Lung tierney are mostly clear, though somewhat diminished in the lower lung tierney at the lung bases. ABDOMEN: Soft, mildly distended. No localized tenderness is present. He has not had any vomiting. He is able to eat orally. EXTREMITIES: Show no edema. He is paraplegic. The post shock wave lithotripsy could not be done yesterday as there was no concern due to non-availability of the conservator. LABORATORY AND DIAGNOSTIC DATA: Done today shows sodium 143, potassium 5, BUN is 34, creatinine 1.2, glucose is 109, BUN and creatinine are gradually decreasing. The CBC shows a WBC of 5500, hemoglobin 8.2, hematocrit 38, platelets are decreased to 123,000. IMPRESSION: 1. Chronic ventilator-dependent respiratory failure. 2. Sepsis. 3. Chronic kidney disease. 4. Nephrolithiasis. 5. Chronic anemia. 6. Chronic bilateral pleural effusions. 7. 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 PLAN: 1. Continue long-term ventilator support. 2. Continue antibiotics per infectious disease [employer] consultant. 3. Continue pulmonary toilet with bronchodilator inhalation therapy. 4. Continue oral feedings as tolerated. Dictated By: Palmer Ames MD /sera/darlyn /Document#: [id number]
--- NOTE | 2016-10-26 12:33 | CONS ---
Date/Time of Note Date/Time of Note DATE: 10/26/16 TIME: 12:32 Assessment/Plan Assessment/Plan Chief Complaint/Hosp Course SUBJECTIVE DATA: No acute changes overnight. Patient is alert feels good Temperature 98.4 pulse 88 respirations 24 blood pressure 110/72 saturation 100 on 40 FiO2 WBC 5.5 H&H 8.2 and 28 platelets 123 no shift BUN 34 creatinine 1.20 ANTIMICROBIALS: Patient is on 1. Vancomycin 2. Meropenem. INDWELLINGS: Trach, PEG, suprapubic catheter. OBJECTIVE DATA: GENERAL: Chronically ill-appearing, middle-aged man, who is in no distress. HEENT: Head atraumatic, normocephalic. Sclerae anicteric. Buccal mucosa dry. NECK: Supple. CHEST: Rise symmetrical. Breath sounds diminished at the bases. HEART: S1, S2. ABDOMEN: Soft, bowel sounds present. EXTREMITIES: Contracted, wasted. ASSESSMENT: 1. Resolving sepsis. 2. Healthcare-associated pneumonia. 3. Possible recurrent urinary tract infection, no cultures done. 4. Scabies, status post Elimite, getting ivermectin weekly. 5. Quadriplegia. 6. History of right nephrectomy. 7. Multiple chronic wounds. 8. ALLERGY TO TETRACYCLINE. PLAN: Patient remains stable. Continue antibiotics. Continue ivermectin weekly for a total of 3 weeks. Patient is followed by Urology, pending urologic procedure once consent is obtained Problems: Consultation Date/Type/Reason Admit Date/Time Oct 21, 2016 at 15:46 Initial Consult Date 10/20/16 Type of Consultation: ID Referring Provider: JOSÉ ANTONIO MIRZA MD Exam/Review of Systems Vital Signs Vitals Vital Signs Date Time Temp Pulse Resp B/P Pulse Ox O2 Delivery O2 Flow Rate FiO2 10/26/16 12:08 98.4 88 24 110/73 100 10/26/16 08:15 40 10/25/16 20:30 Mechanical Ventilator Intake and Output 10/25/16 10/25/16 10/26/16 15:00 23:00 07:00 Intake Total 250 ml 1050 ml Output Total 1300 ml 1800 ml Balance -1050 ml -750 ml Results Result Diagram: 10/26/16 0746 10/26/16 0746 Results 24 hrs Laboratory Tests Test 10/26/16 07:46 White Blood Count 5.5 # Red Blood Count 2.81 L Hemoglobin 8.2 L Hematocrit 28.0 L Mean Corpuscular Volume 99.6 Mean Corpuscular Hemoglobin 29.2 Mean Corpuscular Hemoglobin Concent 29.3 L Red Cell Distribution Width 14.1 Platelet Count 123 L Mean Platelet Volume 11.4 H Neutrophils % 75.6 Lymphocytes % 12.2 L Monocytes % 8.0 Eosinophils % 3.6 Basophils % 0.2 Nucleated Red Blood Cells % 0.0 Neutrophils # 4.1 Lymphocytes # 0.7 L Monocytes # 0.4 Eosinophils # 0.2 Basophils # 0.0 Nucleated Red Blood Cells # 0.0 Sodium Level 143 Potassium Level 5.0 Chloride Level 112 H Carbon Dioxide Level 24 Anion Gap 12 Blood Urea Nitrogen 34 H Creatinine 1.20 Glucose Level 109 Calcium Level 8.3 L Medications Medications Current Medications Dextrose (D50w Syringe) ONCE PRN IV POC BLOOD GLUCOSE <250 MG/DL; Start at 06:00 Hydromorphone HCl (Dilaudid) 1 mg Q4H PRN IV PAIN Last administered on 11:04; Admin Dose 1 MG; Start 10/20/16 at 10:00 Acetaminophen (Tylenol Liquid) 650 mg Q4H PRN GTB MILD PAIN LEVEL 1-3; Start at 13:30 Ascorbic Acid (Vitamin C) 500 mg DAILY GTB Last administered on 10/26/16 08:30 ; Admin Dose 500 MG; Start 10/20/16 at 14:00 Bisacodyl (Dulcolax Supp) 10 mg Q24H PRN [place] CONSTIPATION; Start 10/20/16 at 13: 30 Citric Acid/ Sodium Citrate (Bicitra Liquid (Ped)) 10 meq TID GTB Last administered on 10/24/16 13:31; Admin Dose 10 MEQ; Start 10/20/16 at 21:00 Docusate Sodium (Colace Liquid Cup) 200 mg QHS GTB Last administered on 20:45; Admin Dose 200 MG; Start 10/20/16 at 21:00 Enoxaparin Sodium (Lovenox) 30 mg DAILY SC ; Start 10/21/16 at 09:00; Status Future Hold Magnesium Hydroxide (Milk Of Mag) 30 ml DAILY PRN GTB CONSTIPATION; Start 10/20 at 13:30 Lansoprazole (Prevacid) 30 mg DAILY@06 GTB Last administered on 10/26/16 05:26 ; Admin Dose 30 MG; Start 10/21/16 at 06:00 Polyethylene Glycol (Miralax) 17 gm DAILY GTB Last administered on 10/26/16 08 :31; Admin Dose 17 GM; Start 10/20/16 at 13:30 Zinc Sulfate (Zinc Sulfate) 220 mg DAILY GTB Last administered on 10/26/16 08: 30; Admin Dose 220 MG; Start 10/21/16 at 09:00 Multivit/Ca Carb/ B Cmplx/FA/Prenat ([place]ilibeth-Linn) 1 tab DAILY GTB Last administered on 10/26/16 08:30; Admin Dose 1 TAB; Start 10/21/16 at 09:00 Acetaminophen/ Hydrocodone Bitart ([place] (5/325)) 1 tab Q6 PRN GTB PAIN LEVEL 1 -5 Last administered on 10/25/16 20:44; Admin Dose 1 TAB; Start 10/20/16 at 14: 00 Gabapentin (Neurontin Liquid) 100 mg TID GTB Last administered on 10/26/16 08: 30; Admin Dose 100 MG; Start 10/20/16 at 21:00 Risperidone (Risperdal) 1 mg QHS GTB Last administered on 10/25/16 20:43; Admin Dose 1 MG; Start 10/20/16 at 21:00 Ferrous Sulfate 300 mg 300 mg DAILY GTB Last administered on 10/26/16 08:30; Admin Dose 300 MG; Start 10/20/16 at 14:07 Meropenem/Sodium Chloride 50 ml @ 100 mls/hr Q12 IVPB Last administered on 08:31; Admin Dose 100 MLS/HR; Start 10/20/16 at 21:00 Vancomycin HCl/ Sodium Chloride (Vancocin/NS) 250 ml @ 83.333 mls/ hr Q48H IVPB Last administered on 10/24/16 22:55; Admin Dose 83.333 MLS/HR; Start at 20:00 Miscellaneous Information (Pending Santyl Order For Wound Care) This patient noriega... PRN PRN XX WOUND CARE; Start 10/20/16 at 20:00 Zolpidem Tartrate (Ambien) 5 mg HS PRN PO INSOMNIA Last administered on 20:43; Admin Dose 5 MG; Start 10/20/16 at 21:00 Permethrin (Elimite 5% Cr) 1 applic Q7D TOP Last administered on 10/21/16 16: 35; Admin Dose 1 APPLIC; Start 10/21/16 at 16:00; Stop 10/28/16 at 16:01 Mupirocin (Bactroban) 1 applic BID TOP Last administered on 10/26/16 08:31; Admin Dose 1 APPLIC; Start 10/22/16 at 21:00 Ivermectin 12 mg 12 mg Q7D PO Last administered on 10/22/16 13:18; Admin Dose 12 MG; Start 10/22/16 at 13:00; Stop 10/29/16 at 13:01 Dextrose/Sodium Chloride (D5-1/2ns) 1,000 ml @ 70 mls/hr [id number] IV Last administered on 10/26/16 05:26; Admin Dose 70 MLS/HR; Start 10/22/16 at 14:30 REGINALDO CHERY NP Oct 26, 2016 12:33
[2016-10-26] MEDS: CITRIC ACID/NA CIT (1 MEQ/ML POSYG) GTB SCH ×3 (13:00→21:54)
--- NOTE | 2016-10-26 15:53 | CONS ---
Date/Time of Note Date/Time of Note DATE: 10/26/16 TIME: 15:51 Assessment/Plan Assessment/Plan Additional Assessment/Plan 1. Acute kidney injury secondary to severe prerenal azotemia and possible acute tubular necrosis. 2. Acute uremia with a BUN of 46, Cr 1.42 3. Acute hyperkalemia- resolved 5. 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 6. History of neurogenic bladder with urinary retention, status post suprapubic catheter. 7. History of previous recurrent urinary tract infections. 8. 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 9. 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 10. Other medical history includes anxiety, depression, bipolar disorder, psychosis. 11. History of right nephrectomy with left renal nephrolithiasis and a left renal cyst measuring 5.3 cm in size. Plan: - Cr improved to 1.2- pt has only one kidney , d/c IV fluids today - BP stable - will follow up Consultation Date/Type/Reason Admit Date/Time Oct 21, 2016 at 15:46 Initial Consult Date 10/20/16 Type of Consultation: ID Referring Provider: JOSÉ ANTONIO MIRZA MD Exam/Review of Systems Vital Signs Vitals Vital Signs Date Time Temp Pulse Resp B/P Pulse Ox O2 Delivery O2 Flow Rate FiO2 10/26/16 15:14 97.8 121 20 125/87 98 10/26/16 08:15 40 10/25/16 20:30 Mechanical Ventilator Intake and Output 10/25/16 10/25/16 10/26/16 15:00 23:00 07:00 Intake Total 250 ml 1050 ml Output Total 1300 ml 1800 ml Balance -1050 ml -750 ml Exam Constitutional: alert ENMT: nl external ears & nose, other (+ tracheostomy on ventilator ) Respiratory: clear to auscultation, crackles/rales Cardiovascular: nl pulses, regular rate and rhythm Gastrointestinal: non-tender, other (+ G tube placement ), soft Musculoskeletal: quadruplegic Results Result Diagram: 10/26/16 0746 10/26/16 0746 Results 24 hrs Laboratory Tests Test 10/26/16 07:46 White Blood Count 5.5 # Red Blood Count 2.81 L Hemoglobin 8.2 L Hematocrit 28.0 L Mean Corpuscular Volume 99.6 Mean Corpuscular Hemoglobin 29.2 Mean Corpuscular Hemoglobin Concent 29.3 L Red Cell Distribution Width 14.1 Platelet Count 123 L Mean Platelet Volume 11.4 H Neutrophils % 75.6 Lymphocytes % 12.2 L Monocytes % 8.0 Eosinophils % 3.6 Basophils % 0.2 Nucleated Red Blood Cells % 0.0 Neutrophils # 4.1 Lymphocytes # 0.7 L Monocytes # 0.4 Eosinophils # 0.2 Basophils # 0.0 Nucleated Red Blood Cells # 0.0 Sodium Level 143 Potassium Level 5.0 Chloride Level 112 H Carbon Dioxide Level 24 Anion Gap 12 Blood Urea Nitrogen 34 H Creatinine 1.20 Glucose Level 109 Calcium Level 8.3 L Medications Medications Current Medications Dextrose (D50w Syringe) ONCE PRN IV POC BLOOD GLUCOSE <250 MG/DL; Start at 06:00 Hydromorphone HCl (Dilaudid) 1 mg Q4H PRN IV PAIN Last administered on 15:20; Admin Dose 1 MG; Start 10/20/16 at 10:00 Acetaminophen (Tylenol Liquid) 650 mg Q4H PRN GTB MILD PAIN LEVEL 1-3; Start at 13:30 Ascorbic Acid (Vitamin C) 500 mg DAILY GTB Last administered on 10/26/16 08:30 ; Admin Dose 500 MG; Start 10/20/16 at 14:00 Bisacodyl (Dulcolax Supp) 10 mg Q24H PRN [place] CONSTIPATION; Start 10/20/16 at 13: 30 Citric Acid/ Sodium Citrate (Bicitra Liquid (Ped)) 10 meq TID GTB Last administered on 10/26/16 13:13; Admin Dose 10 MEQ; Start 10/20/16 at 21:00 Docusate Sodium (Colace Liquid Cup) 200 mg QHS GTB Last administered on 20:45; Admin Dose 200 MG; Start 10/20/16 at 21:00 Enoxaparin Sodium (Lovenox) 30 mg DAILY SC ; Start 10/21/16 at 09:00; Status Future Hold Magnesium Hydroxide (Milk Of Mag) 30 ml DAILY PRN GTB CONSTIPATION; Start 10/20 at 13:30 Lansoprazole (Prevacid) 30 mg DAILY@06 GTB Last administered on 10/26/16 05:26 ; Admin Dose 30 MG; Start 10/21/16 at 06:00 Polyethylene Glycol (Miralax) 17 gm DAILY GTB Last administered on 10/26/16 08 :31; Admin Dose 17 GM; Start 10/20/16 at 13:30 Zinc Sulfate (Zinc Sulfate) 220 mg DAILY GTB Last administered on 10/26/16 08: 30; Admin Dose 220 MG; Start 10/21/16 at 09:00 Multivit/Ca Carb/ B Cmplx/FA/Prenat (Lilibeth-Linn) 1 tab DAILY GTB Last administered on 10/26/16 08:30; Admin Dose 1 TAB; Start 10/21/16 at 09:00 Acetaminophen/ Hydrocodone Bitart ([place] (5/325)) 1 tab Q6 PRN GTB PAIN LEVEL 1 -5 Last administered on 10/25/16 20:44; Admin Dose 1 TAB; Start 10/20/16 at 14: 00 Gabapentin (Neurontin Liquid) 100 mg TID GTB Last administered on 10/26/16 13: 13; Admin Dose 100 MG; Start 10/20/16 at 21:00 Risperidone (Risperdal) 1 mg QHS GTB Last administered on 10/25/16 20:43; Admin Dose 1 MG; Start 10/20/16 at 21:00 Ferrous Sulfate 300 mg 300 mg DAILY GTB Last administered on 10/26/16 08:30; Admin Dose 300 MG; Start 10/20/16 at 14:07 Meropenem/Sodium Chloride 50 ml @ 100 mls/hr Q12 IVPB Last administered on 08:31; Admin Dose 100 MLS/HR; Start 10/20/16 at 21:00 Vancomycin HCl/ Sodium Chloride (Vancocin/NS) 250 ml @ 83.333 mls/ hr Q48H IVPB Last administered on 10/24/16 22:55; Admin Dose 83.333 MLS/HR; Start at 20:00 [facility] This patient noriega... PRN PRN XX WOUND CARE; Start 10/20/16 at 20:00 Zolpidem Tartrate (Ambien) 5 mg HS PRN PO INSOMNIA Last administered on 20:43; Admin Dose 5 MG; Start 10/20/16 at 21:00 Permethrin (Elimite 5% Cr) 1 applic Q7D TOP Last administered on 10/21/16 16: 35; Admin Dose 1 APPLIC; Start 10/21/16 at 16:00; Stop 10/28/16 at 16:01 Mupirocin (Bactroban) 1 applic BID TOP Last administered on 10/26/16 08:31; Admin Dose 1 APPLIC; Start 10/22/16 at 21:00 Ivermectin 12 mg 12 mg Q7D PO Last administered on 10/22/16 13:18; Admin Dose 12 MG; Start 10/22/16 at 13:00; Stop 10/29/16 at 13:01 Dextrose/Sodium Chloride (D5-1/2ns) 1,000 ml @ 70 mls/hr [id number] IV Last administered on 10/26/16 05:26; Admin Dose 70 MLS/HR; Start 10/22/16 at 14:30 TIARA CISNEROS MD Oct 26, 2016 15:53
--- NOTE | 2016-10-26 17:18 | PN ---
Date/Time of Note Date/Time of Note DATE: 10/26/16 TIME: 17:15 Assessment/Plan VTE Prophylaxis VTE Prophylaxis Intervention: SCD's Lines/Catheters IV [facility]from [facility] PICC Line Central line still needed: Yes Assessment/Plan Chief Complaint/Hosp Course No acute events overnight, lithotripsy procedure is on hold due to difficulty with contacting conservator to obtain consent for the procedure, socially responsible investment adviser consult in assisting with conservator contact. Assessment/Plan - Sepsis due to HCAP, urinary tract infection, resolving. Dr. Maciel is following in infection disease consultation. Continue antibiotics per ID. - Neurogenic bladder with suprapubic catheter. - Left renal nephrolithiasis, Dr Marquez is following in urology consultation. pending lithotripsy procedure upon consent from conservator. - Acute kidney injury on chronic kidney disease. Continue to monitor renal function. - Status post right nephrectomy - Ventilator-dependent respiratory failure with tracheostomy. - Dysphagia with percutaneous endoscopic gastrostomy tube. - Multiple decubitus ulcers present on admission. - Cervical spine injury with paraplegia. - Bipolar disorder with psychosis. Further recommendations based on clinical course. Plan of care discussed with Dr. Barreto. Problems: Exam/Review of Systems Vital Signs Vitals Vital Signs Date Time Temp Pulse Resp B/P Pulse Ox O2 Delivery O2 Flow Rate FiO2 10/26/16 15:14 97.8 121 20 125/87 98 10/26/16 08:15 40 10/25/16 20:30 Mechanical Ventilator Intake and Output 10/25/16 10/25/16 10/26/16 15:00 23:00 07:00 Intake Total 250 ml 1050 ml Output Total 1300 ml 1800 ml Balance -1050 ml -750 ml Exam Constitutional: alert Neck: other (Urostomy), supple Respiratory: diminished breath sounds Cardiovascular: nl pulses, regular rate and rhythm Gastrointestinal: non-tender, other (G-tube), soft Extremities: normal pulses Skin: other (multiple decubitus ulcers) Results Result Diagram: 10/26/16 0746 10/26/16 0746 Results 24 hrs Laboratory Tests Test 10/26/16 07:46 White Blood Count 5.5 # Red Blood Count 2.81 L Hemoglobin 8.2 L Hematocrit 28.0 L Mean Corpuscular Volume 99.6 Mean Corpuscular Hemoglobin 29.2 Mean Corpuscular Hemoglobin Concent 29.3 L Red Cell Distribution Width 14.1 Platelet Count 123 L Mean Platelet Volume 11.4 H Neutrophils % 75.6 Lymphocytes % 12.2 L Monocytes % 8.0 Eosinophils % 3.6 Basophils % 0.2 Nucleated Red Blood Cells % 0.0 Neutrophils # 4.1 Lymphocytes # 0.7 L Monocytes # 0.4 Eosinophils # 0.2 Basophils # 0.0 Nucleated Red Blood Cells # 0.0 Sodium Level 143 Potassium Level 5.0 Chloride Level 112 H Carbon Dioxide Level 24 Anion Gap 12 Blood Urea Nitrogen 34 H Creatinine 1.20 Glucose Level 109 Calcium Level 8.3 L Medications Medications Current Medications Dextrose (D50w Syringe) ONCE PRN IV POC BLOOD GLUCOSE <250 MG/DL; Start at 06:00 Hydromorphone HCl (Dilaudid) 1 mg Q4H PRN IV PAIN Last administered on 15:20; Admin Dose 1 MG; Start 10/20/16 at 10:00 Acetaminophen (Tylenol Liquid) 650 mg Q4H PRN GTB MILD PAIN LEVEL 1-3; Start at 13:30 Ascorbic Acid (Vitamin C) 500 mg DAILY GTB Last administered on 10/26/16 08:30 ; Admin Dose 500 MG; Start 10/20/16 at 14:00 Bisacodyl (Dulcolax Supp) 10 mg Q24H PRN [place] CONSTIPATION; Start 10/20/16 at 13: 30 Citric Acid/ Sodium Citrate (Bicitra Liquid (Ped)) 10 meq TID GTB Last administered on 10/26/16 13:13; Admin Dose 10 MEQ; Start 10/20/16 at 21:00 Docusate Sodium (Colace Liquid Cup) 200 mg QHS GTB Last administered on 20:45; Admin Dose 200 MG; Start 10/20/16 at 21:00 Enoxaparin Sodium (Lovenox) 30 mg DAILY SC ; Start 10/21/16 at 09:00; Status Future Hold Magnesium Hydroxide (Milk Of Mag) 30 ml DAILY PRN GTB CONSTIPATION; Start 10/20 at 13:30 Lansoprazole (Prevacid) 30 mg DAILY@06 GTB Last administered on 10/26/16 05:26 ; Admin Dose 30 MG; Start 10/21/16 at 06:00 Polyethylene Glycol (Miralax) 17 gm DAILY GTB Last administered on 10/26/16 08 :31; Admin Dose 17 GM; Start 10/20/16 at 13:30 Zinc Sulfate (Zinc Sulfate) 220 mg DAILY GTB Last administered on 10/26/16 08: 30; Admin Dose 220 MG; Start 10/21/16 at 09:00 Multivit/Ca Carb/ B Cmplx/FA/Prenat ([place]ilibeth-L[place]) 1 tab DAILY GTB Last administered on 10/26/16 08:30; Admin Dose 1 TAB; Start 10/21/16 at 09:00 Acetaminophen/ Hydrocodone Bitart ([place] (5/325)) 1 tab Q6 PRN GTB PAIN LEVEL 1 -5 Last administered on 10/25/16 20:44; Admin Dose 1 TAB; Start 10/20/16 at 14: 00 Gabapentin (Neurontin Liquid) 100 mg TID GTB Last administered on 10/26/16 13: 13; Admin Dose 100 MG; Start 10/20/16 at 21:00 Risperidone (Risperdal) 1 mg QHS GTB Last administered on 10/25/16 20:43; Admin Dose 1 MG; Start 10/20/16 at 21:00 Ferrous Sulfate 300 mg 300 mg DAILY GTB Last administered on 10/26/16 08:30; Admin Dose 300 MG; Start 10/20/16 at 14:07 Meropenem/Sodium Chloride 50 ml @ 100 mls/hr Q12 IVPB Last administered on 08:31; Admin Dose 100 MLS/HR; Start 10/20/16 at 21:00 Vancomycin HCl/ Sodium Chloride (Vancocin/NS) 250 ml @ 83.333 mls/ hr Q48H IVPB Last administered on 10/24/16 22:55; Admin Dose 83.333 MLS/HR; Start at 20:00 Miscellaneous Information (Pending Santyl Order For Wound Care) This patient noriega... PRN PRN XX WOUND CARE; Start 10/20/16 at 20:00 Zolpidem Tartrate (Ambien) 5 mg HS PRN PO INSOMNIA Last administered on 20:43; Admin Dose 5 MG; Start 10/20/16 at 21:00 Permethrin (Elimite 5% Cr) 1 applic Q7D TOP Last administered on 10/21/16 16: 35; Admin Dose 1 APPLIC; Start 10/21/16 at 16:00; Stop 10/28/16 at 16:01 Mupirocin (Bactroban) 1 applic BID TOP Last administered on 10/26/16 08:31; Admin Dose 1 APPLIC; Start 10/22/16 at 21:00 Ivermectin (Stromectol) 12 mg Q7D PO Last administered on 10/22/16 13:18; Admin Dose 12 MG; Start 10/22/16 at 13:00; Stop 10/29/16 at 13:01 AISSATOU DUNCAN Oct 26, 2016 17:18
--- NOTE | 2016-10-26 19:08 | PN ---
Date/Time of Note Date/Time of Note DATE: 10/26/16 TIME: 19:02 Assessment/Plan VTE Prophylaxis VTE Prophylaxis Intervention: other Lines/Catheters IV Catheter Type (from [facility]): PICC Line Central line still needed: Yes Urinary Cath still in place: Yes Reason Cath still needed: urinary retention Assessment/Plan Chief Complaint/Hosp Course This is a 40-year-old male who was admitted to the hospital from a nursing facility because of hypoxemia. 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 Patient has a tracheostomy and also has a suprapubic tube. Patient has had a right nephrectomy. He only has a left kidney and KUB and CT scan showed that he has a JJ stent. The CT scan showed the JJ stent to be in good place with stones in the lower pole of the left kidney and there is 1 stone close to the proximal curl of the stent .The stent appeared to be in good position. I talked to the patient and he said he has had it for over 1 year and it was inserted for him in a hospital in [place] He was scheduled to do extracorporeal shockwave lithotripsy to the proximal curl of the JJ stent and a cystoscopy most likely through the suprapubic tract or through the urethra if it is open to see if we could remove and may be replace the ureteral JJ stent or just remove it..That was cancelled as the conservator was not available to give consent for the surgery and anesthesia. The hospital staff have called and left messages but did not receive a call back. The patient is unhappy as the procedure was canceled. He is awake alert oriented and in my opinion he is capable of making his own decision. In fact he stated that he is 42 years old and understands what we are doing and he thinks that he is capable of making his own medical decisions and does not need the conservator to do that for him. I had the head nurse and the nurse was taking care of him with this talk with him I also did bring that up was a child welfare caseworker as to why the operating room nurse in charge was concerned about his consenting himself rather than his conservator Problems: Subjective 24 Hr Interval Summary Constitutional: no complaints, other (Patient is verbal and states he is 42 years old and can make his own decisions he is not happy that the procedure was canceled yesterday because of the conservator did not return the call.) Eyes: no complaints Respiratory: No wheezing Cardiovascular: no complaints Gastrointestinal: no complaints Genitourinary: other (Suprapubic tube in place) Exam/Review of Systems Vital Signs Vitals Vital Signs Date Time Temp Pulse Resp B/P Pulse Ox O2 Delivery O2 Flow Rate FiO2 10/26/16 17:24 107 10/26/16 16:50 27 96 40 10/26/16 15:14 97.8 125/87 10/25/16 20:30 Mechanical Ventilator Intake and Output 10/25/16 10/25/16 10/26/16 15:00 23:00 07:00 Intake Total 250 ml 1050 ml Output Total 1300 ml 1800 ml Balance -1050 ml -750 ml Exam Constitutional: alert, oriented Psych: no complaints Head: normocephalic Eyes: nl conjunctiva ENMT: nl external ears & nose Neck: supple Respiratory: normal air movement Cardiovascular: No edema Gastrointestinal: soft Genitourinary - Male: other (Suprapubic tube draining well) Results Result Diagram: 10/26/16 0746 10/26/16 0746 Results 24 hrs Laboratory Tests Test 10/26/16 07:46 White Blood Count 5.5 # Red Blood Count 2.81 L Hemoglobin 8.2 L Hematocrit 28.0 L Mean Corpuscular Volume 99.6 Mean Corpuscular Hemoglobin 29.2 Mean Corpuscular Hemoglobin Concent 29.3 L Red Cell Distribution Width 14.1 Platelet Count 123 L Mean Platelet Volume 11.4 H Neutrophils % 75.6 Lymphocytes % 12.2 L Monocytes % 8.0 Eosinophils % 3.6 Basophils % 0.2 Nucleated Red Blood Cells % 0.0 Neutrophils # 4.1 Lymphocytes # 0.7 L Monocytes # 0.4 Eosinophils # 0.2 Basophils # 0.0 Nucleated Red Blood Cells # 0.0 Sodium Level 143 Potassium Level 5.0 Chloride Level 112 H Carbon Dioxide Level 24 Anion Gap 12 Blood Urea Nitrogen 34 H Creatinine 1.20 Glucose Level 109 Calcium Level 8.3 L Medications Medications Current Medications Dextrose (D50w Syringe) ONCE PRN IV POC BLOOD GLUCOSE <250 MG/DL; Start at 06:00 Hydromorphone HCl (Dilaudid) 1 mg Q4H PRN IV PAIN Last administered on 15:20; Admin Dose 1 MG; Start 10/20/16 at 10:00 Acetaminophen (Tylenol Liquid) 650 mg Q4H PRN GTB MILD PAIN LEVEL 1-3; Start at 13:30 Ascorbic Acid (Vitamin C) 500 mg DAILY GTB Last administered on 10/26/16 08:30 ; Admin Dose 500 MG; Start 10/20/16 at 14:00 Bisacodyl (Dulcolax Supp) 10 mg Q24H PRN [place] CONSTIPATION; Start 10/20/16 at 13: 30 Citric Acid/ Sodium Citrate (Bicitra Liquid (Ped)) 10 meq TID GTB Last administered on 10/26/16 13:13; Admin Dose 10 MEQ; Start 10/20/16 at 21:00 Docusate Sodium (Colace Liquid Cup) 200 mg QHS GTB Last administered on 20:45; Admin Dose 200 MG; Start 10/20/16 at 21:00 Enoxaparin Sodium (Lovenox) 30 mg DAILY SC ; Start 10/21/16 at 09:00; Status Future Hold Magnesium Hydroxide (Milk Of Mag) 30 ml DAILY PRN GTB CONSTIPATION; Start 10/20 at 13:30 Lansoprazole (Prevacid) 30 mg DAILY@06 GTB Last administered on 10/26/16 05:26 ; Admin Dose 30 MG; Start 10/21/16 at 06:00 Polyethylene Glycol (Miralax) 17 gm DAILY GTB Last administered on 10/26/16 08 :31; Admin Dose 17 GM; Start 10/20/16 at 13:30 Zinc Sulfate (Zinc Sulfate) 220 mg DAILY GTB Last administered on 10/26/16 08: 30; Admin Dose 220 MG; Start 10/21/16 at 09:00 Multivit/Ca Carb/ B Cmplx/FA/Prenat (Lilibeth-Linn) 1 tab DAILY GTB Last administered on 10/26/16 08:30; Admin Dose 1 TAB; Start 10/21/16 at 09:00 Acetaminophen/ Hydrocodone Bitart ([place] (5/325)) 1 tab Q6 PRN GTB PAIN LEVEL 1 -5 Last administered on 10/25/16 20:44; Admin Dose 1 TAB; Start 10/20/16 at 14: 00 Gabapentin (Neurontin Liquid) 100 mg TID GTB Last administered on 10/26/16 13: 13; Admin Dose 100 MG; Start 10/20/16 at 21:00 Risperidone (Risperdal) 1 mg QHS GTB Last administered on 10/25/16 20:43; Admin Dose 1 MG; Start 10/20/16 at 21:00 Ferrous Sulfate 300 mg 300 mg DAILY GTB Last administered on 10/26/16 08:30; Admin Dose 300 MG; Start 10/20/16 at 14:07 Meropenem/Sodium Chloride 50 ml @ 100 mls/hr Q12 IVPB Last administered on 08:31; Admin Dose 100 MLS/HR; Start 10/20/16 at 21:00 Vancomycin HCl/ Sodium Chloride (Vancocin/NS) 250 ml @ 83.333 mls/ hr Q48H IVPB Last administered on 10/24/16 22:55; Admin Dose 83.333 MLS/HR; Start at 20:00 [facility] This patient noriega... PRN PRN XX WOUND CARE; Start 10/20/16 at 20:00 Zolpidem Tartrate (Ambien) 5 mg HS PRN PO INSOMNIA Last administered on 20:43; Admin Dose 5 MG; Start 10/20/16 at 21:00 Permethrin (Elimite 5% Cr) 1 applic Q7D TOP Last administered on 10/21/16 16: 35; Admin Dose 1 APPLIC; Start 10/21/16 at 16:00; Stop 10/28/16 at 16:01 Mupirocin (Bactroban) 1 applic BID TOP Last administered on 10/26/16 08:31; Admin Dose 1 APPLIC; Start 10/22/16 at 21:00 Ivermectin (Stromectol) 12 mg Q7D PO Last administered on 10/22/16 13:18; Admin Dose 12 MG; Start 10/22/16 at 13:00; Stop 10/29/16 at 13:01 BHARGAV JIANG MD Oct 26, 2016 19:08
[2016-10-26] MEDS: VANCOMYCIN 1.25 GM in SOD CHLORIDE 0.9% 250 ML IVPB SCH (21:54)
[2016-10-26] MEDS: ZOLPIDEM 5 MG TAB PO PRN (21:54)
[2016-10-26] MEDS: DOCUSATE SODIUM 10 MG/ML (10ML CUP) GTB SCH (22:03)
[2016-10-27] VITALS (25 sets, daily range): BP systolic 105–124; BP diastolic 65–87; PULSE 87–112; RESP 14–32
[2016-10-27] MEDS: MUPIROCIN 2% 22 GM OINT TOP SCH ×3 (00:03→21:27)
[2016-10-27] MEDS: RISPERIDONE 1 MG TAB GTB SCH ×2 (00:03→21:26)
[2016-10-27] MEDS: LEVALBUTEROL (HFA) 15 GM INHALER INH SCH ×4 (01:04→19:54)
[2016-10-27] MEDS: IPRATROPIUM (HFA) 12.9 GM INHALER INH SCH ×4 (01:04→19:54)
[2016-10-27] MEDS: HYDROmorphONE 1 MG/ML SYG IV PRN ×5 (04:02→21:28)
[2016-10-27] MEDS: LANSOPRAZOLE 30 MG CAP GTB SCH (05:54)
[2016-10-27] MEDS: FERROUS SULFATE 60 MG/ML 5ML CUP GTB SCH (09:04)
[2016-10-27] MEDS: POLYETHYLENE GLYCOL 17 GM PACKET GTB SCH (09:04)
[2016-10-27] MEDS: GABAPENTIN (50 MG/ML PO SYG) GTB SCH ×3 (09:05→21:26)
[2016-10-27] MEDS: MULTIVIT/CA CARB/B CMPLX/FA TAB GTB SCH (09:05)
[2016-10-27] MEDS: MEROPENEM 500MG/50 ML (PMX) 50 ML IVPB SCH ×2 (09:19→21:26)
[2016-10-27] MEDS: ZINC SULFATE 220 MG CAP GTB SCH (09:19)
[2016-10-27] MEDS: ASCORBIC ACID 500 MG TAB GTB SCH (09:19)
--- NOTE | 2016-10-27 09:42 | PN ---
Date/Time of Note Date/Time of Note DATE: 10/27/16 TIME: 09:40 Assessment/Plan VTE Prophylaxis VTE Prophylaxis Intervention: SCD's Lines/Catheters IV Catheter Type (from Nrsg): PICC Line Central line still needed: No Assessment/Plan Assessment/Plan Sepsis/SIRS Hypotension, improved Sinus tachycardia, improved Acute kidney injury, improved Respiratory Failure Preserved EF on echocardiogram March 02, 2016 History of intermittent Mobitz I Chronic pain syndrome -Heart rate trend overall improved. Continue to hold any antihypertensive medications. Antibiotics as per primary team. Subjective 24 Hr Interval Summary Free Text/Dictation the patient with no chagne Exam/Review of Systems Vital Signs Vitals Vital Signs Date Time Temp Pulse Resp B/P Pulse Ox O2 Delivery O2 Flow Rate FiO2 10/27/16 08:32 87 10/27/16 08:06 16 98 40 10/27/16 07:38 99.4 122/78 10/25/16 20:30 Mechanical Ventilator Intake and Output 10/26/16 10/26/16 10/27/16 15:00 23:00 07:00 Intake Total 50 ml 300 ml Output Total 2250 ml Balance 50 ml -1950 ml Results Result Diagram: 10/26/16 0746 10/26/16 0746 Medications Medications Current Medications Dextrose (D50w Syringe) ONCE PRN IV POC BLOOD GLUCOSE <250 MG/DL; Start at 06:00 Hydromorphone HCl (Dilaudid) 1 mg Q4H PRN IV PAIN Last administered on 09:03; Admin Dose 1 MG; Start 10/20/16 at 10:00 Acetaminophen (Tylenol Liquid) 650 mg Q4H PRN GTB MILD PAIN LEVEL 1-3; Start at 13:30 Ascorbic Acid (Vitamin C) 500 mg DAILY GTB Last administered on 10/27/16 09:19 ; Admin Dose 500 MG; Start 10/20/16 at 14:00 Bisacodyl (Dulcolax Supp) 10 mg Q24H PRN [place] CONSTIPATION; Start 10/20/16 at 13: 30 Citric Acid/ Sodium Citrate (Bicitra Liquid (Ped)) 10 meq TID GTB Last administered on 10/26/16 21:54; Admin Dose 10 MEQ; Start 10/20/16 at 21:00 Docusate Sodium (Colace Liquid Cup) 200 mg QHS GTB Last administered on 22:03; Admin Dose 200 MG; Start 10/20/16 at 21:00 Enoxaparin Sodium (Lovenox) 30 mg DAILY SC ; Start 10/21/16 at 09:00; Status Future Hold Magnesium Hydroxide (Milk Of Mag) 30 ml DAILY PRN GTB CONSTIPATION; Start 10/20 at 13:30 Lansoprazole (Prevacid) 30 mg DAILY@06 GTB Last administered on 10/26/16 05:26 ; Admin Dose 30 MG; Start 10/21/16 at 06:00 Polyethylene Glycol (Miralax) 17 gm DAILY GTB Last administered on 10/27/16 09 :04; Admin Dose 17 GM; Start 10/20/16 at 13:30 Zinc Sulfate (Zinc Sulfate) 220 mg DAILY GTB Last administered on 10/27/16 09: 19; Admin Dose 220 MG; Start 10/21/16 at 09:00 Multivit/Ca Carb/ B Cmplx/FA/Prenat (Lilibeth-Linn) 1 tab DAILY GTB Last administered on 10/27/16 09:05; Admin Dose 1 TAB; Start 10/21/16 at 09:00 Acetaminophen/ Hydrocodone Bitart ([place] (5/325)) 1 tab Q6 PRN GTB PAIN LEVEL 1 -5 Last administered on 10/25/16 20:44; Admin Dose 1 TAB; Start 10/20/16 at 14: 00 Gabapentin (Neurontin Liquid) 100 mg TID GTB Last administered on 10/27/16 09: 05; Admin Dose 100 MG; Start 10/20/16 at 21:00 Risperidone (Risperdal) 1 mg QHS GTB Last administered on 10/27/16 00:03; Admin Dose 1 MG; Start 10/20/16 at 21:00 Ferrous Sulfate 300 mg 300 mg DAILY GTB Last administered on 10/27/16 09:04; Admin Dose 300 MG; Start 10/20/16 at 14:07 Meropenem/Sodium Chloride 50 ml @ 100 mls/hr Q12 IVPB Last administered on 09:19; Admin Dose 100 MLS/HR; Start 10/20/16 at 21:00 Vancomycin HCl/ Sodium Chloride (Vancocin/NS) 250 ml @ 83.333 mls/ hr Q48H IVPB Last administered on 10/26/16 21:54; Admin Dose 83.333 MLS/HR; Start at 20:00 Miscellaneous Information (Pending [facility] Order For Wound Care) This patient noriega... PRN PRN XX WOUND CARE; Start 10/20/16 at 20:00 Zolpidem Tartrate (Ambien) 5 mg HS PRN PO INSOMNIA Last administered on 21:54; Admin Dose 5 MG; Start 10/20/16 at 21:00 Permethrin (Elimite 5% Cr) 1 applic Q7D TOP Last administered on 10/21/16 16: 35; Admin Dose 1 APPLIC; Start 10/21/16 at 16:00; Stop 10/28/16 at 16:01 Mupirocin (Bactroban) 1 applic BID TOP Last administered on 10/27/16 09:19; Admin Dose 1 APPLIC; Start 10/22/16 at 21:00 Ivermectin (Stromectol) 12 mg Q7D PO Last administered on 10/22/16 13:18; Admin Dose 12 MG; Start 10/22/16 at 13:00; Stop 10/29/16 at 13:01 YIN RUSH MD Oct 27, 2016 09:42
--- NOTE | 2016-10-27 11:00 | PN ---
DATE: 10/27/2016 SUBJECTIVE DATA: The patient's condition is the same. He is awake, alert, breathing comfortably with ventilator support. He shows no signs of respiratory distress. He has not had any significant fever spikes. OBJECTIVE DATA: VITAL SIGNS: His temperature this morning is 99.4. Blood pressure 122/78, pulse rate of 123, respirations 18. Pulse oximetry showing 97 percent saturation on 40 percent oxygen concentration. He is on continuous ventilator support through tracheostomy. NECK: Tracheal secretions are clear. No bleeding is seen. HEART: Regular rhythm with sinus bradycardia. CHEST: Breath sounds are heard bilaterally, diminished in both the lower lung tierney with a few intermittent rales and rhonchi. ABDOMEN: Soft, not distended. Bowel sounds are present. No localized tenderness. EXTREMITIES: Show no edema. He is paraplegic. LABORATORY AND DIAGNOSTIC DATA: No lab test results are available today. IMPRESSION: 1. Chronic ventilator-dependent respiratory failure. 2. Sepsis. 3. Chronic kidney disease. 4. Nephrolithiasis. 5. Chronic anemia. 6. Chronic bilateral pleural effusions. 7. 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 PLAN: 1. Continue long-term ventilator support. 2. Continue antibiotics. 3. Continue pulmonary toilet with bronchodilator inhalation therapy. 4. Still waiting for the consent from the conservator for his lithotripsy procedure. Dictated By: Palmer Ames MD /sera/darlyn /Document#: [id number]
[2016-10-27] MEDS: CITRIC ACID/NA CIT (1 MEQ/ML POSYG) GTB SCH ×3 (11:08→21:26)
[2016-10-27 11:14] LABS: BASOPHILS % 0.2 % (0.0-2.0); EOSINOPHILS # 0.3 10^3/ul (0.0-0.5); EOSINOPHILS % 3.9 % (0.0-7.0); HEMATOCRIT 28.6 % (42.0-52.0); HEMOGLOBIN 8.6 g/dl (14.0-18.0); LYMPHOCYTES # 0.9 10^3/ul (0.8-2.9); LYMPHOCYTES % 13.5 % (15.0-51.0); MEAN CORPUSCULAR HEMOGLOBIN 29.8 pg (29.0-33.0); MEAN CORPUSCULAR HGB CONC 30.1 g/dl (32.0-37.0); MEAN PLATELET VOLUME 11.7 fl (7.4-10.4); MONOCYTE # 0.6 10^3/ul (0.3-0.9); NEUTROPHIL # 4.6 10^3/ul (1.6-7.5); NEUTROPHILS % 71.9 % (39.0-77.0); PLATELET COUNT 155 10^3/UL (140-415); RED BLOOD COUNT 2.89 10^6/ul (4.70-6.10); RED CELL DISTRIBUTION WIDTH 14.3 % (11.5-14.5); WHITE BLOOD COUNT 6.4 10^3/ul (4.8-10.8)
[2016-10-27 11:41] LABS: CALCIUM 8.4 mg/dl (8.4-10.2); CREATININE 1.25 mg/dl (0.61-1.24)
--- NOTE | 2016-10-27 14:58 | PN ---
DATE: 10/28/2016 SUBJECTIVE DATA: Nata Haddad remains stable. No new events. Vital signs Dictation ends here. Dictated By: Tim Brown MD /sera/maida /Document#: [id number]
--- NOTE | 2016-10-27 15:13 | CONS ---
Date/Time of Note Date/Time of Note DATE: 10/27/16 TIME: 15:11 Assessment/Plan Assessment/Plan Chief Complaint/Hosp Course SUBJECTIVE DATA: Alert, looks comfortable denies pain, no fevers Temperature 99 pulse 90 respirations 18 blood pressure 115/65 saturation 97% WBC 6.4 H&H 8.6 and 28.6 platelets 155 no shift BUN 33 creatinine 1.25 ANTIMICROBIALS: Patient is on day #8 abx 1. Vancomycin 2. Meropenem. INDWELLINGS: Trach, PEG, suprapubic catheter. OBJECTIVE DATA: GENERAL: Chronically ill-appearing, middle-aged man, who is in no distress. HEENT: Head atraumatic, normocephalic. Sclerae anicteric. Buccal mucosa dry. NECK: Supple. CHEST: Rise symmetrical. Breath sounds diminished at the bases. HEART: S1, S2. ABDOMEN: Soft, bowel sounds present. EXTREMITIES: Contracted, wasted. ASSESSMENT: 1. Resolving sepsis. 2. Healthcare-associated pneumonia. 3. Possible recurrent urinary tract infection, no cultures done. 4. Scabies, status post Elimite, getting ivermectin weekly. 5. Quadriplegia. 6. History of right nephrectomy. 7. Multiple chronic wounds. 8. ALLERGY TO TETRACYCLINE. PLAN: Patient remains stable. Continue antibiotics for 4 more days. Continue ivermectin weekly for 3 weeks. Patient is followed by Urology, pending urologic procedure once consent is obtained. DW dr Ames Problems: Consultation Date/Type/Reason Admit Date/Time Oct 21, 2016 at 15:46 Initial Consult Date 10/20/16 Type of Consultation: ID Referring Provider: JOSÉ ANTONIO MIRZA MD Exam/Review of Systems Vital Signs Vitals Vital Signs Date Time Temp Pulse Resp B/P Pulse Ox O2 Delivery O2 Flow Rate FiO2 10/27/16 15:03 122 18 97 40 10/27/16 11:24 99.0 115/65 10/25/16 20:30 Mechanical Ventilator Intake and Output 10/26/16 10/26/16 10/27/16 15:00 23:00 07:00 Intake Total 50 ml 300 ml Output Total 2250 ml Balance 50 ml -1950 ml Results Result Diagram: 10/27/16 1035 10/27/16 1035 Results 24 hrs Laboratory Tests Test 10/27/16 10:35 White Blood Count 6.4 Red Blood Count 2.89 L Hemoglobin 8.6 L Hematocrit 28.6 L Mean Corpuscular Volume 99.0 Mean Corpuscular Hemoglobin 29.8 Mean Corpuscular Hemoglobin Concent 30.1 L Red Cell Distribution Width 14.3 Platelet Count 155 # Mean Platelet Volume 11.7 H Neutrophils % 71.9 Lymphocytes % 13.5 L Monocytes % 10.0 Eosinophils % 3.9 Basophils % 0.2 Nucleated Red Blood Cells % 0.0 Neutrophils # 4.6 Lymphocytes # 0.9 Monocytes # 0.6 Eosinophils # 0.3 Basophils # 0.0 Nucleated Red Blood Cells # 0.0 Sodium Level 142 Potassium Level 5.0 Chloride Level 109 Carbon Dioxide Level 26 Anion Gap 12 Blood Urea Nitrogen 33 H Creatinine 1.25 H Glucose Level 104 Calcium Level 8.4 Medications Medications Current Medications Dextrose (D50w Syringe) ONCE PRN IV POC BLOOD GLUCOSE <250 MG/DL; Start at 06:00 Hydromorphone HCl (Dilaudid) 1 mg Q4H PRN IV PAIN Last administered on 13:21; Admin Dose 1 MG; Start 10/20/16 at 10:00 Acetaminophen (Tylenol Liquid) 650 mg Q4H PRN GTB MILD PAIN LEVEL 1-3; Start at 13:30 Ascorbic Acid (Vitamin C) 500 mg DAILY GTB Last administered on 10/27/16 09:19 ; Admin Dose 500 MG; Start 10/20/16 at 14:00 Bisacodyl (Dulcolax Supp) 10 mg Q24H PRN [place] CONSTIPATION; Start 10/20/16 at 13: 30 Citric Acid/ Sodium Citrate (Bicitra Liquid (Ped)) 10 meq TID GTB Last administered on 10/27/16 13:21; Admin Dose 10 MEQ; Start 10/20/16 at 21:00 Docusate Sodium (Colace Liquid Cup) 200 mg QHS GTB Last administered on 22:03; Admin Dose 200 MG; Start 10/20/16 at 21:00 Enoxaparin Sodium (Lovenox) 30 mg DAILY SC ; Start 10/21/16 at 09:00; Status Future Hold Magnesium Hydroxide (Milk Of Mag) 30 ml DAILY PRN GTB CONSTIPATION; Start 10/20 at 13:30 Lansoprazole (Prevacid) 30 mg DAILY@06 GTB Last administered on 10/26/16 05:26 ; Admin Dose 30 MG; Start 10/21/16 at 06:00 Polyethylene Glycol (Miralax) 17 gm DAILY GTB Last administered on 10/27/16 09 :04; Admin Dose 17 GM; Start 10/20/16 at 13:30 Zinc Sulfate (Zinc Sulfate) 220 mg DAILY GTB Last administered on 10/27/16 09: 19; Admin Dose 220 MG; Start 10/21/16 at 09:00 Multivit/Ca Carb/ B Cmplx/FA/Prenat (Lilibeth-Linn) 1 tab DAILY GTB Last administered on 10/27/16 09:05; Admin Dose 1 TAB; Start 10/21/16 at 09:00 Acetaminophen/ Hydrocodone Bitart ([place] (5/325)) 1 tab Q6 PRN GTB PAIN LEVEL 1 -5 Last administered on 10/25/16 20:44; Admin Dose 1 TAB; Start 10/20/16 at 14: 00 Gabapentin (Neurontin Liquid) 100 mg TID GTB Last administered on 10/27/16 13: 21; Admin Dose 100 MG; Start 10/20/16 at 21:00 Risperidone (Risperdal) 1 mg QHS GTB Last administered on 10/27/16 00:03; Admin Dose 1 MG; Start 10/20/16 at 21:00 Ferrous Sulfate 300 mg 300 mg DAILY GTB Last administered on 10/27/16 09:04; Admin Dose 300 MG; Start 10/20/16 at 14:07 Meropenem/Sodium Chloride 50 ml @ 100 mls/hr Q12 IVPB Last administered on 09:19; Admin Dose 100 MLS/HR; Start 10/20/16 at 21:00 Vancomycin HCl/ Sodium Chloride (Vancocin/NS) 250 ml @ 83.333 mls/ hr Q48H IVPB Last administered on 10/26/16 21:54; Admin Dose 83.333 MLS/HR; Start at 20:00 Miscellaneous Information (Pending [facility] Order For Wound Care) This patient noriega... PRN PRN XX WOUND CARE; Start 10/20/16 at 20:00 Zolpidem Tartrate (Ambien) 5 mg HS PRN PO INSOMNIA Last administered on 21:54; Admin Dose 5 MG; Start 10/20/16 at 21:00 Permethrin (Elimite 5% Cr) 1 applic Q7D TOP Last administered on 10/21/16 16: 35; Admin Dose 1 APPLIC; Start 10/21/16 at 16:00; Stop 10/28/16 at 16:01 Mupirocin (Bactroban) 1 applic BID TOP Last administered on 10/27/16 09:19; Admin Dose 1 APPLIC; Start 10/22/16 at 21:00 Ivermectin (Stromectol) 12 mg Q7D PO Last administered on 10/22/16 13:18; Admin Dose 12 MG; Start 10/22/16 at 13:00; Stop 10/29/16 at 13:01 REGINALDO CHERY NP Oct 27, 2016 15:13
--- NOTE | 2016-10-27 16:53 | CONS ---
Date/Time of Note Date/Time of Note DATE: 10/27/16 TIME: 16:51 Assessment/Plan Assessment/Plan Additional Assessment/Plan 1. Acute kidney injury secondary to severe prerenal azotemia and possible acute tubular necrosis. 2. Acute uremia with a BUN of 46, Cr 1.42 3. Acute hyperkalemia- resolved 5. 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 6. History of neurogenic bladder with urinary retention, status post suprapubic catheter. 7. History of previous recurrent urinary tract infections. 8. 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 9. 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 10. Other medical history includes anxiety, depression, bipolar disorder, psychosis. 11. History of right nephrectomy with left renal nephrolithiasis and a left renal cyst measuring 5.3 cm in size. Plan: - Cr slightly went up to 1.25- yesterday IVF was stopped, pt has only one kidney - will montior cr in AM labs, if continues to rise then we will add IVF back on - IV abx meropenem and vancomycin, renally dose it - will follow up Consultation Date/Type/Reason Admit Date/Time Oct 21, 2016 at 15:46 Initial Consult Date 10/20/16 Type of Consultation: NEPHROLOGY Referring Provider: JOSÉ ANTONIO MIRZA MD Exam/Review of Systems Vital Signs Vitals Vital Signs Date Time Temp Pulse Resp B/P Pulse Ox O2 Delivery O2 Flow Rate FiO2 10/27/16 16:38 98 10/27/16 15:37 98.0 22 105/66 97 10/27/16 15:03 40 10/25/16 20:30 Mechanical Ventilator Intake and Output 10/26/16 10/26/16 10/27/16 15:00 23:00 07:00 Intake Total 50 ml 300 ml Output Total 2250 ml Balance 50 ml -1950 ml Exam Constitutional: alert ENMT: nl external ears & nose, other (+ tracheostomy on ventilator ) Respiratory: clear to auscultation, crackles/rales Cardiovascular: nl pulses, regular rate and rhythm Gastrointestinal: non-tender, other (+ G tube placement ), soft Musculoskeletal: quadruplegic Results Result Diagram: 10/27/16 1035 10/27/16 1035 Results 24 hrs Laboratory Tests Test 10/27/16 10:35 White Blood Count 6.4 Red Blood Count 2.89 L Hemoglobin 8.6 L Hematocrit 28.6 L Mean Corpuscular Volume 99.0 Mean Corpuscular Hemoglobin 29.8 Mean Corpuscular Hemoglobin Concent 30.1 L Red Cell Distribution Width 14.3 Platelet Count 155 # Mean Platelet Volume 11.7 H Neutrophils % 71.9 Lymphocytes % 13.5 L Monocytes % 10.0 Eosinophils % 3.9 Basophils % 0.2 Nucleated Red Blood Cells % 0.0 Neutrophils # 4.6 Lymphocytes # 0.9 Monocytes # 0.6 Eosinophils # 0.3 Basophils # 0.0 Nucleated Red Blood Cells # 0.0 Sodium Level 142 Potassium Level 5.0 Chloride Level 109 Carbon Dioxide Level 26 Anion Gap 12 Blood Urea Nitrogen 33 H Creatinine 1.25 H Glucose Level 104 Calcium Level 8.4 Medications Medications Current Medications Dextrose (D50w Syringe) ONCE PRN IV POC BLOOD GLUCOSE <250 MG/DL; Start at 06:00 Hydromorphone HCl (Dilaudid) 1 mg Q4H PRN IV PAIN Last administered on 13:21; Admin Dose 1 MG; Start 10/20/16 at 10:00 Acetaminophen (Tylenol Liquid) 650 mg Q4H PRN GTB MILD PAIN LEVEL 1-3; Start at 13:30 Ascorbic Acid (Vitamin C) 500 mg DAILY GTB Last administered on 10/27/16 09:19 ; Admin Dose 500 MG; Start 10/20/16 at 14:00 Bisacodyl (Dulcolax Supp) 10 mg Q24H PRN [place] CONSTIPATION; Start 10/20/16 at 13: 30 Citric Acid/ Sodium Citrate (Bicitra Liquid (Ped)) 10 meq TID GTB Last administered on 10/27/16 13:21; Admin Dose 10 MEQ; Start 10/20/16 at 21:00 Docusate Sodium (Colace Liquid Cup) 200 mg QHS GTB Last administered on 22:03; Admin Dose 200 MG; Start 10/20/16 at 21:00 Enoxaparin Sodium (Lovenox) 30 mg DAILY SC ; Start 10/21/16 at 09:00; Status Future Hold Magnesium Hydroxide (Milk Of Mag) 30 ml DAILY PRN GTB CONSTIPATION; Start 10/20 at 13:30 Lansoprazole (Prevacid) 30 mg DAILY@06 GTB Last administered on 10/26/16 05:26 ; Admin Dose 30 MG; Start 10/21/16 at 06:00 Polyethylene Glycol (Miralax) 17 gm DAILY GTB Last administered on 10/27/16 09 :04; Admin Dose 17 GM; Start 10/20/16 at 13:30 Zinc Sulfate (Zinc Sulfate) 220 mg DAILY GTB Last administered on 10/27/16 09: 19; Admin Dose 220 MG; Start 10/21/16 at 09:00 Multivit/Ca Carb/ B Cmplx/FA/Prenat (Lilibeth-Linn) 1 tab DAILY GTB Last administered on 10/27/16 09:05; Admin Dose 1 TAB; Start 10/21/16 at 09:00 Acetaminophen/ Hydrocodone Bitart ([place] (5/325)) 1 tab Q6 PRN GTB PAIN LEVEL 1 -5 Last administered on 10/25/16 20:44; Admin Dose 1 TAB; Start 10/20/16 at 14: 00 Gabapentin (Neurontin Liquid) 100 mg TID GTB Last administered on 10/27/16 13: 21; Admin Dose 100 MG; Start 10/20/16 at 21:00 Risperidone (Risperdal) 1 mg QHS GTB Last administered on 10/27/16 00:03; Admin Dose 1 MG; Start 10/20/16 at 21:00 Ferrous Sulfate 300 mg 300 mg DAILY GTB Last administered on 10/27/16 09:04; Admin Dose 300 MG; Start 10/20/16 at 14:07 Meropenem/Sodium Chloride 50 ml @ 100 mls/hr Q12 IVPB Last administered on 09:19; Admin Dose 100 MLS/HR; Start 10/20/16 at 21:00 Vancomycin HCl/ Sodium Chloride (Vancocin/NS) 250 ml @ 83.333 mls/ hr Q48H IVPB Last administered on 10/26/16 21:54; Admin Dose 83.333 MLS/HR; Start at 20:00 [facility] This patient noriega... PRN PRN XX WOUND CARE; Start 10/20/16 at 20:00 Zolpidem Tartrate (Ambien) 5 mg HS PRN PO INSOMNIA Last administered on 21:54; Admin Dose 5 MG; Start 10/20/16 at 21:00 Permethrin (Elimite 5% Cr) 1 applic Q7D TOP Last administered on 10/21/16 16: 35; Admin Dose 1 APPLIC; Start 10/21/16 at 16:00; Stop 10/28/16 at 16:01 Mupirocin (Bactroban) 1 applic BID TOP Last administered on 10/27/16 09:19; Admin Dose 1 APPLIC; Start 10/22/16 at 21:00 Ivermectin (Stromectol) 12 mg Q7D PO Last administered on 10/22/16 13:18; Admin Dose 12 MG; Start 10/22/16 at 13:00; Stop 10/29/16 at 13:01 TIARA CISNEROS MD Oct 27, 2016 16:53
[2016-10-27] MEDS: DOCUSATE SODIUM 10 MG/ML (10ML CUP) GTB SCH (21:27)
[2016-10-27] MEDS: ZOLPIDEM 5 MG TAB PO PRN (21:33)
[2016-10-28] VITALS (23 sets, daily range): BP systolic 105–115; BP diastolic 55–71; PULSE 81–104; RESP 14–35
[2016-10-28] MEDS: LEVALBUTEROL (HFA) 15 GM INHALER INH SCH ×4 (01:16→20:53)
[2016-10-28] MEDS: IPRATROPIUM (HFA) 12.9 GM INHALER INH SCH ×4 (01:16→20:53)
[2016-10-28] MEDS: HYDROmorphONE 1 MG/ML SYG IV PRN ×5 (03:30→20:05)
[2016-10-28] MEDS: LANSOPRAZOLE 30 MG CAP GTB SCH (05:17)
--- NOTE | 2016-10-28 08:50 | PN ---
Date/Time of Note Date/Time of Note DATE: 10/28/16 TIME: 08:47 Assessment/Plan VTE Prophylaxis VTE Prophylaxis Intervention: other Lines/Catheters IV Catheter Type (from Nrs): PICC Line Central line still needed: Yes Assessment/Plan Chief Complaint/Hosp Course This is a 40-year-old male who was admitted to the hospital from a nursing facility because of hypoxemia. 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 Patient has a tracheostomy and also has a suprapubic tube. Patient has had a right nephrectomy. He only has a left kidney and KUB and CT scan showed that he has a JJ stent. The CT scan showed the JJ stent to be in good place with stones in the lower pole of the left kidney and there is 1 stone close to the proximal curl of the stent .The stent appeared to be in good position. I talked to the patient and he said he has had it for over 1 year and it was inserted for him in a hospital in [place] He is scheduled to do extracorporeal shockwave lithotripsy to the proximal curl of the JJ stent and a cystoscopy most likely through the suprapubic tract or through the urethra if it is open to see if we could remove and may be replace the ureteral JJ stent or just remove it The issue of the consent has been resolved and the patient is scheduled for tomorrow at 9 AM to do the procedure. I again explained the procedure to him the benefits, the risks, the possible complications and the success or failure and he is agreeable to proceed Problems: Exam/Review of Systems Vital Signs Vitals Vital Signs Date Time Temp Pulse Resp B/P Pulse Ox O2 Delivery O2 Flow Rate FiO2 10/28/16 08:35 81 10/28/16 08:06 97.9 16 110/59 99 10/28/16 05:43 40 10/25/16 20:30 Mechanical Ventilator Intake and Output 10/27/16 10/27/16 10/28/16 15:00 23:00 07:00 Intake Total 650 ml 220 ml Output Total 850 ml Balance -200 ml 220 ml Results Result Diagram: 10/27/16 1035 10/27/16 1035 Results 24 hrs Laboratory Tests Test 10/27/16 10:35 White Blood Count 6.4 Red Blood Count 2.89 L Hemoglobin 8.6 L Hematocrit 28.6 L Mean Corpuscular Volume 99.0 Mean Corpuscular Hemoglobin 29.8 Mean Corpuscular Hemoglobin Concent 30.1 L Red Cell Distribution Width 14.3 Platelet Count 155 # Mean Platelet Volume 11.7 H Neutrophils % 71.9 Lymphocytes % 13.5 L Monocytes % 10.0 Eosinophils % 3.9 Basophils % 0.2 Nucleated Red Blood Cells % 0.0 Neutrophils # 4.6 Lymphocytes # 0.9 Monocytes # 0.6 Eosinophils # 0.3 Basophils # 0.0 Nucleated Red Blood Cells # 0.0 Sodium Level 142 Potassium Level 5.0 Chloride Level 109 Carbon Dioxide Level 26 Anion Gap 12 Blood Urea Nitrogen 33 H Creatinine 1.25 H Glucose Level 104 Calcium Level 8.4 Medications Medications Current Medications Dextrose (D50w Syringe) ONCE PRN IV POC BLOOD GLUCOSE <250 MG/DL; Start at 06:00 Hydromorphone HCl (Dilaudid) 1 mg Q4H PRN IV PAIN Last administered on 07:45; Admin Dose 1 MG; Start 10/20/16 at 10:00 Acetaminophen (Tylenol Liquid) 650 mg Q4H PRN GTB MILD PAIN LEVEL 1-3; Start at 13:30 Ascorbic Acid (Vitamin C) 500 mg DAILY GTB Last administered on 10/27/16 09:19 ; Admin Dose 500 MG; Start 10/20/16 at 14:00 Bisacodyl (Dulcolax Supp) 10 mg Q24H PRN [place] CONSTIPATION; Start 10/20/16 at 13: 30 Citric Acid/ Sodium Citrate (Bicitra Liquid (Ped)) 10 meq TID GTB Last administered on 10/27/16 21:26; Admin Dose 10 MEQ; Start 10/20/16 at 21:00 Docusate Sodium (Colace Liquid Cup) 200 mg QHS GTB Last administered on 21:27; Admin Dose 200 MG; Start 10/20/16 at 21:00 Enoxaparin Sodium (Lovenox) 30 mg DAILY SC ; Start 10/21/16 at 09:00; Status Future Hold Magnesium Hydroxide (Milk Of Mag) 30 ml DAILY PRN GTB CONSTIPATION; Start 10/20 at 13:30 Lansoprazole (Prevacid) 30 mg DAILY@06 GTB Last administered on 10/26/16 05:26 ; Admin Dose 30 MG; Start 10/21/16 at 06:00 Polyethylene Glycol (Miralax) 17 gm DAILY GTB Last administered on 10/27/16 09 :04; Admin Dose 17 GM; Start 10/20/16 at 13:30 Zinc Sulfate (Zinc Sulfate) 220 mg DAILY GTB Last administered on 10/27/16 09: 19; Admin Dose 220 MG; Start 10/21/16 at 09:00 Multivit/Ca Carb/ B Cmplx/FA/Prenat ([place]ilib[place]-L[place]) 1 tab DAILY GTB Last administered on 10/27/16 09:05; Admin Dose 1 TAB; Start 10/21/16 at 09:00 Acetaminophen/ Hydrocodone Bitart ([place] (5/325)) 1 tab Q6 PRN GTB PAIN LEVEL 1 -5 Last administered on 10/25/16 20:44; Admin Dose 1 TAB; Start 10/20/16 at 14: 00 Gabapentin (Neurontin Liquid) 100 mg TID GTB Last administered on 10/27/16 21: 26; Admin Dose 100 MG; Start 10/20/16 at 21:00 Risperidone (Risperdal) 1 mg QHS GTB Last administered on 10/27/16 21:26; Admin Dose 1 MG; Start 10/20/16 at 21:00 Ferrous Sulfate 300 mg 300 mg DAILY GTB Last administered on 10/27/16 09:04; Admin Dose 300 MG; Start 10/20/16 at 14:07 Meropenem/Sodium Chloride 50 ml @ 100 mls/hr Q12 IVPB Last administered on 21:26; Admin Dose 100 MLS/HR; Start 10/20/16 at 21:00 Vancomycin HCl/ Sodium Chloride (Vancocin/NS) 250 ml @ 83.333 mls/ hr Q48H IVPB Last administered on 10/26/16 21:54; Admin Dose 83.333 MLS/HR; Start at 20:00 Miscellaneous Information (Pending Santyl Order For Wound Care) This patient noriega... PRN PRN XX WOUND CARE; Start 10/20/16 at 20:00 Zolpidem Tartrate (Ambien) 5 mg HS PRN PO INSOMNIA Last administered on 21:33; Admin Dose 5 MG; Start 10/20/16 at 21:00 Permethrin (Elimite 5% Cr) 1 applic Q7D TOP Last administered on 10/21/16 16: 35; Admin Dose 1 APPLIC; Start 10/21/16 at 16:00; Stop 10/28/16 at 16:01 Mupirocin (Bactroban) 1 applic BID TOP Last administered on 10/27/16 21:27; Admin Dose 1 APPLIC; Start 10/22/16 at 21:00 Ivermectin (Stromectol) 12 mg Q7D PO Last administered on 10/22/16 13:18; Admin Dose 12 MG; Start 10/22/16 at 13:00; Stop 10/29/16 at 13:01 BHARGAV JIANG MD Oct 28, 2016 08:50
[2016-10-28] MEDS: POLYETHYLENE GLYCOL 17 GM PACKET GTB SCH (09:00)
[2016-10-28] MEDS: CITRIC ACID/NA CIT (1 MEQ/ML POSYG) GTB SCH ×3 (09:27→20:07)
[2016-10-28] MEDS: GABAPENTIN (50 MG/ML PO SYG) GTB SCH ×3 (09:28→21:28)
[2016-10-28] MEDS: MULTIVIT/CA CARB/B CMPLX/FA TAB GTB SCH (09:28)
[2016-10-28] MEDS: FERROUS SULFATE 60 MG/ML 5ML CUP GTB SCH (09:28)
[2016-10-28] MEDS: ASCORBIC ACID 500 MG TAB GTB SCH (09:28)
[2016-10-28] MEDS: MUPIROCIN 2% 22 GM OINT TOP SCH ×2 (09:29→20:07)
[2016-10-28] MEDS: ZINC SULFATE 220 MG CAP GTB SCH (09:29)
[2016-10-28] MEDS: MEROPENEM 500MG/50 ML (PMX) 50 ML IVPB SCH ×2 (09:39→21:27)
[2016-10-28 10:58] LABS: BASOPHILS % 0.1 % (0.0-2.0); EOSINOPHILS # 0.3 10^3/ul (0.0-0.5); EOSINOPHILS % 4.1 % (0.0-7.0); HEMATOCRIT 30.3 % (42.0-52.0); LYMPHOCYTES # 0.7 10^3/ul (0.8-2.9); LYMPHOCYTES % 10.5 % (15.0-51.0); MEAN CORPUSCULAR HEMOGLOBIN 29.6 pg (29.0-33.0); MEAN CORPUSCULAR HGB CONC 29.7 g/dl (32.0-37.0); MEAN CORPUSCULAR VOLUME 99.7 fl (82.0-101.0); MEAN PLATELET VOLUME 11.6 fl (7.4-10.4); MONOCYTE # 0.7 10^3/ul (0.3-0.9); MONOCYTES % 9.2 % (0.0-11.0); NEUTROPHIL # 5.3 10^3/ul (1.6-7.5); NEUTROPHILS % 75.7 % (39.0-77.0); PLATELET COUNT 178 10^3/UL (140-415); RED BLOOD COUNT 3.04 10^6/ul (4.70-6.10); RED CELL DISTRIBUTION WIDTH 14.6 % (11.5-14.5)
[2016-10-28 11:21] LABS: CALCIUM 8.8 mg/dl (8.4-10.2); CREATININE 1.29 mg/dl (0.61-1.24)
--- NOTE | 2016-10-28 13:27 | PN ---
Date/Time of Note Date/Time of Note DATE: 10/28/16 TIME: 13:26 Assessment/Plan VTE Prophylaxis VTE Prophylaxis Intervention: SCD's Lines/Catheters IV Catheter Type (from Nrsg): PICC Line Central line still needed: No Assessment/Plan Assessment/Plan Sepsis/SIRS Hypotension, improved Sinus tachycardia, improved Acute kidney injury, improved Respiratory Failure Preserved EF on echocardiogram March 02, 2016 History of intermittent [place] I Chronic pain syndrome -Heart rate trend overall improved. Continue to hold any antihypertensive medications. Antibiotics as per primary team. Subjective 24 Hr Interval Summary Free Text/Dictation the pateitn with no cahnge Exam/Review of Systems Vital Signs Vitals Vital Signs Date Time Temp Pulse Resp B/P Pulse Ox O2 Delivery O2 Flow Rate FiO2 10/28/16 12:22 101 10/28/16 11:52 98.2 16 105/55 95 10/28/16 05:43 40 10/25/16 20:30 Mechanical Ventilator Intake and Output 10/27/16 10/27/16 10/28/16 15:00 23:00 07:00 Intake Total 650 ml 220 ml Output Total 850 ml Balance -200 ml 220 ml Results Result Diagram: 10/28/16 0945 10/28/16 0945 Results 24 hrs Laboratory Tests Test 10/28/16 09:45 White Blood Count 7.0 Red Blood Count 3.04 L Hemoglobin 9.0 L Hematocrit 30.3 L Mean Corpuscular Volume 99.7 Mean Corpuscular Hemoglobin 29.6 Mean Corpuscular Hemoglobin Concent 29.7 L Red Cell Distribution Width 14.6 H Platelet Count 178 Mean Platelet Volume 11.6 H Neutrophils % 75.7 Lymphocytes % 10.5 L Monocytes % 9.2 Eosinophils % 4.1 Basophils % 0.1 Nucleated Red Blood Cells % 0.0 Neutrophils # 5.3 Lymphocytes # 0.7 L Monocytes # 0.7 Eosinophils # 0.3 Basophils # 0.0 Nucleated Red Blood Cells # 0.0 Sodium Level 142 Potassium Level 5.0 Chloride Level 111 H Carbon Dioxide Level 23 Anion Gap 13 Blood Urea Nitrogen 39 H Creatinine 1.29 H Glucose Level 95 Calcium Level 8.8 Medications Medications Current Medications Dextrose (D50w Syringe) ONCE PRN IV POC BLOOD GLUCOSE <250 MG/DL; Start at 06:00 Hydromorphone HCl (Dilaudid) 1 mg Q4H PRN IV PAIN Last administered on 12:01; Admin Dose 1 MG; Start 10/20/16 at 10:00 Acetaminophen (Tylenol Liquid) 650 mg Q4H PRN GTB MILD PAIN LEVEL 1-3; Start at 13:30 Ascorbic Acid (Vitamin C) 500 mg DAILY GTB Last administered on 10/28/16 09:28 ; Admin Dose 500 MG; Start 10/20/16 at 14:00 Bisacodyl (Dulcolax Supp) 10 mg Q24H PRN [place] CONSTIPATION; Start 10/20/16 at 13: 30 Citric Acid/ Sodium Citrate (Bicitra Liquid (Ped)) 10 meq TID GTB Last administered on 10/28/16 09:27; Admin Dose 10 MEQ; Start 10/20/16 at 21:00 Docusate Sodium (Colace Liquid Cup) 200 mg QHS GTB Last administered on 21:27; Admin Dose 200 MG; Start 10/20/16 at 21:00 Enoxaparin Sodium (Lovenox) 30 mg DAILY SC ; Start 10/21/16 at 09:00; Status Future Hold Magnesium Hydroxide (Milk Of Mag) 30 ml DAILY PRN GTB CONSTIPATION; Start 10/20 at 13:30 Lansoprazole (Prevacid) 30 mg DAILY@06 GTB Last administered on 10/26/16 05:26 ; Admin Dose 30 MG; Start 10/21/16 at 06:00 Polyethylene Glycol (Miralax) 17 gm DAILY GTB Last administered on 10/27/16 09 :04; Admin Dose 17 GM; Start 10/20/16 at 13:30 Zinc Sulfate (Zinc Sulfate) 220 mg DAILY GTB Last administered on 10/28/16 09: 29; Admin Dose 220 MG; Start 10/21/16 at 09:00 Multivit/Ca Carb/ B Cmplx/FA/Prenat ([place]) 1 tab DAILY GTB Last administered on 10/28/16 09:28; Admin Dose 1 TAB; Start 10/21/16 at 09:00 Acetaminophen/ Hydrocodone Bitart ([place] (5/325)) 1 tab Q6 PRN GTB PAIN LEVEL 1 -5 Last administered on 10/25/16 20:44; Admin Dose 1 TAB; Start 10/20/16 at 14: 00 Gabapentin (Neurontin Liquid) 100 mg TID GTB Last administered on 10/28/16 09: 28; Admin Dose 100 MG; Start 10/20/16 at 21:00 Risperidone (Risperdal) 1 mg QHS GTB Last administered on 10/27/16 21:26; Admin Dose 1 MG; Start 10/20/16 at 21:00 Ferrous Sulfate 300 mg 300 mg DAILY GTB Last administered on 10/28/16 09:28; Admin Dose 300 MG; Start 10/20/16 at 14:07 Meropenem/Sodium Chloride 50 ml @ 100 mls/hr Q12 IVPB Last administered on 09:39; Admin Dose 100 MLS/HR; Start 10/20/16 at 21:00 Vancomycin HCl/ Sodium Chloride (Vancocin/NS) 250 ml @ 83.333 mls/ hr Q48H IVPB Last administered on 10/26/16 21:54; Admin Dose 83.333 MLS/HR; Start at 20:00 Miscellaneous Information (Pending [facility] Order For Wound Care) This patient noriega... PRN PRN XX WOUND CARE; Start 10/20/16 at 20:00 Zolpidem Tartrate (Ambien) 5 mg HS PRN PO INSOMNIA Last administered on 21:33; Admin Dose 5 MG; Start 10/20/16 at 21:00 Permethrin (Elimite 5% Cr) 1 applic Q7D TOP Last administered on 10/21/16 16: 35; Admin Dose 1 APPLIC; Start 10/21/16 at 16:00; Stop 10/28/16 at 16:01 Mupirocin (Bactroban) 1 applic BID TOP Last administered on 10/28/16 09:29; Admin Dose 1 APPLIC; Start 10/22/16 at 21:00 Ivermectin (Stromectol) 12 mg Q7D PO Last administered on 10/22/16 13:18; Admin Dose 12 MG; Start 10/22/16 at 13:00; Stop 10/29/16 at 13:01 YIN RUSH MD Oct 28, 2016 13:27
--- NOTE | 2016-10-28 14:08 | PN ---
DATE: 10/28/2016 SUBJECTIVE DATA: The patient's condition is stable. He is awake, alert, responsive and breathing comfortably with a long- term ventilator support through tracheostomy. His vital signs are stable. According nursing staff, he has not had any shortness of breath. No episodes of desaturation. OBJECTIVE DATA: VITAL SIGNS: His temperature is 98.2, blood pressure 105/55, pulse 101, respirations 16, and pulse oximetry 95 percent saturation. HEENT: Tracheal secretions are clear. No bleeding is seen. HEART: Regular rhythm. CHEST: Breath sounds are diminished in both lower lung tierney with a few intermittent rales and rhonchi. ABDOMEN: Abdomen is soft, not distended. He is able to eat orally. No vomiting is reported. EXTREMITIES: Show no edema. He is paraplegic. LAB TESTS: Show sodium 142, potassium 5, glucose 95, BUN 39, creatinine 1.09. CBC shows a WBC 7000, hemoglobin 9, hematocrit 30.3, and platelets are 178, gradually increasing. IMPRESSION: 1. Chronic ventilator-dependent respiratory failure. 2. Sepsis. 3. Chronic kidney disease. 4. Nephrolithiasis. 5. Chronic anemia. 6. Chronic bilateral pleural effusions. 7. 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 PLAN: 1. 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 2. Continue antibiotics per Infectious Disease recommendations. 3. Continue pulmonary toilet with bronchodilator inhalation therapy. 4. The patient is scheduled to have lithotripsy tomorrow. Dictated By: Palmer Ames MD /sera/derrek /Document#: [id number]
--- NOTE | 2016-10-28 14:25 | PN ---
Date/Time of Note Date/Time of Note DATE: 10/28/16 TIME: 14:23 Assessment/Plan VTE Prophylaxis VTE Prophylaxis Intervention: SCD's Lines/Catheters [facility] P[facility] Line Central line still needed: Yes Assessment/Plan Chief Complaint/Hosp Course No acute events overnight, pending lithotripsy procedure tomorrow. Assessment/Plan - Sepsis due to HCAP, urinary tract infection, resolving. Dr. Maciel is following in infection disease consultation. Continue antibiotics per ID. - Neurogenic bladder with suprapubic catheter. - Left renal nephrolithiasis, Dr Marquez is following in urology consultation, plan is for lithotripsy procedure tomorrow. - Acute kidney injury on chronic kidney disease. Continue to monitor renal function. - Status post right nephrectomy - Ventilator-dependent respiratory failure with tracheostomy. - Dysphagia with percutaneous endoscopic gastrostomy tube. - Multiple decubitus ulcers present on admission. - Cervical spine injury with paraplegia. - Bipolar disorder with psychosis. Further recommendations based on clinical course. Plan of care discussed with Dr. Barreto. Problems: Exam/Review of Systems Vital Signs Vitals Vital Signs Date Time Temp Pulse Resp B/P Pulse Ox O2 Delivery O2 Flow Rate FiO2 10/28/16 12:22 101 10/28/16 11:52 98.2 16 105/55 95 10/28/16 05:43 40 10/25/16 20:30 Mechanical Ventilator Intake and Output 10/27/16 10/27/16 10/28/16 15:00 23:00 07:00 Intake Total 650 ml 220 ml Output Total 850 ml Balance -200 ml 220 ml Exam Constitutional: alert Neck: other (Urostomy), supple Respiratory: diminished breath sounds Cardiovascular: nl pulses, regular rate and rhythm Gastrointestinal: non-tender, other (G-tube), soft Extremities: normal pulses Skin: other (multiple decubitus ulcers) Results Result Diagram: 10/28/16 0945 10/28/16 0945 Results 24 hrs Laboratory Tests Test 10/28/16 09:45 White Blood Count 7.0 Red Blood Count 3.04 L Hemoglobin 9.0 L Hematocrit 30.3 L Mean Corpuscular Volume 99.7 Mean Corpuscular Hemoglobin 29.6 Mean Corpuscular Hemoglobin Concent 29.7 L Red Cell Distribution Width 14.6 H Platelet Count 178 Mean Platelet Volume 11.6 H Neutrophils % 75.7 Lymphocytes % 10.5 L Monocytes % 9.2 Eosinophils % 4.1 Basophils % 0.1 Nucleated Red Blood Cells % 0.0 Neutrophils # 5.3 Lymphocytes # 0.7 L Monocytes # 0.7 Eosinophils # 0.3 Basophils # 0.0 Nucleated Red Blood Cells # 0.0 Sodium Level 142 Potassium Level 5.0 Chloride Level 111 H Carbon Dioxide Level 23 Anion Gap 13 Blood Urea Nitrogen 39 H Creatinine 1.29 H Glucose Level 95 Calcium Level 8.8 Medications Medications Current Medications Dextrose (D50w Syringe) ONCE PRN IV POC BLOOD GLUCOSE <250 MG/DL; Start at 06:00 Hydromorphone HCl (Dilaudid) 1 mg Q4H PRN IV PAIN Last administered on 12:01; Admin Dose 1 MG; Start 10/20/16 at 10:00 Acetaminophen (Tylenol Liquid) 650 mg Q4H PRN GTB MILD PAIN LEVEL 1-3; Start at 13:30 Ascorbic Acid (Vitamin C) 500 mg DAILY GTB Last administered on 10/28/16 09:28 ; Admin Dose 500 MG; Start 10/20/16 at 14:00 Bisacodyl (Dulcolax Supp) 10 mg Q24H PRN [place] CONSTIPATION; Start 10/20/16 at 13: 30 Citric Acid/ Sodium Citrate (Bicitra Liquid (Ped)) 10 meq TID GTB Last administered on 10/28/16 09:27; Admin Dose 10 MEQ; Start 10/20/16 at 21:00 Docusate Sodium (Colace Liquid Cup) 200 mg QHS GTB Last administered on 21:27; Admin Dose 200 MG; Start 10/20/16 at 21:00 Enoxaparin Sodium (Lovenox) 30 mg DAILY SC ; Start 10/21/16 at 09:00; Status Future Hold Magnesium Hydroxide (Milk Of Mag) 30 ml DAILY PRN GTB CONSTIPATION; Start 10/20 at 13:30 Lansoprazole (Prevacid) 30 mg DAILY@06 GTB Last administered on 10/26/16 05:26 ; Admin Dose 30 MG; Start 10/21/16 at 06:00 Polyethylene Glycol (Miralax) 17 gm DAILY GTB Last administered on 10/27/16 09 :04; Admin Dose 17 GM; Start 10/20/16 at 13:30 Zinc Sulfate (Zinc Sulfate) 220 mg DAILY GTB Last administered on 10/28/16 09: 29; Admin Dose 220 MG; Start 10/21/16 at 09:00 Multivit/Ca Carb/ B Cmplx/FA/Prenat ([place]ilibeth-L[place]) 1 tab DAILY GTB Last administered on 10/28/16 09:28; Admin Dose 1 TAB; Start 10/21/16 at 09:00 Acetaminophen/ Hydrocodone Bitart ([place] (5/325)) 1 tab Q6 PRN GTB PAIN LEVEL 1 -5 Last administered on 10/25/16 20:44; Admin Dose 1 TAB; Start 10/20/16 at 14: 00 Gabapentin (Neurontin Liquid) 100 mg TID GTB Last administered on 10/28/16 09: 28; Admin Dose 100 MG; Start 10/20/16 at 21:00 Risperidone (Risperdal) 1 mg QHS GTB Last administered on 10/27/16 21:26; Admin Dose 1 MG; Start 10/20/16 at 21:00 Ferrous Sulfate 300 mg 300 mg DAILY GTB Last administered on 10/28/16 09:28; Admin Dose 300 MG; Start 10/20/16 at 14:07 Meropenem/Sodium Chloride 50 ml @ 100 mls/hr Q12 IVPB Last administered on 09:39; Admin Dose 100 MLS/HR; Start 10/20/16 at 21:00 Vancomycin HCl/ Sodium Chloride (Vancocin/NS) 250 ml @ 83.333 mls/ hr Q48H IVPB Last administered on 10/26/16 21:54; Admin Dose 83.333 MLS/HR; Start at 20:00 Miscellaneous Information (Pending Santyl Order For Wound Care) This patient noriega... PRN PRN XX WOUND CARE; Start 10/20/16 at 20:00 Zolpidem Tartrate (Ambien) 5 mg HS PRN PO INSOMNIA Last administered on 21:33; Admin Dose 5 MG; Start 10/20/16 at 21:00 Permethrin (Elimite 5% Cr) 1 applic Q7D TOP Last administered on 10/21/16 16: 35; Admin Dose 1 APPLIC; Start 10/21/16 at 16:00; Stop 10/28/16 at 16:01 Mupirocin (Bactroban) 1 applic BID TOP Last administered on 10/28/16 09:29; Admin Dose 1 APPLIC; Start 10/22/16 at 21:00 Ivermectin (Stromectol) 12 mg Q7D PO Last administered on 10/22/16 13:18; Admin Dose 12 MG; Start 10/22/16 at 13:00; Stop 10/29/16 at 13:01 AISSATOU DUNCAN Oct 28, 2016 14:25
--- NOTE | 2016-10-28 15:03 | CONS ---
Date/Time of Note Date/Time of Note DATE: 10/28/16 TIME: 15:02 Assessment/Plan Assessment/Plan Chief Complaint/Hosp Course SUBJECTIVE DATA: Alert, looks comfortable denies pain, no fevers ANTIMICROBIALS: Patient is on day #9 abx 1. Vancomycin 2. Meropenem. INDWELLINGS: Trach, PEG, suprapubic catheter. OBJECTIVE DATA: GENERAL: Chronically ill-appearing, middle-aged man, who is in no distress. HEENT: Head atraumatic, normocephalic. Sclerae anicteric. Buccal mucosa dry. NECK: Supple. CHEST: Rise symmetrical. Breath sounds diminished at the bases. HEART: S1, S2. ABDOMEN: Soft, bowel sounds present. EXTREMITIES: Contracted, wasted. ASSESSMENT: 1. Resolving sepsis. 2. Healthcare-associated pneumonia. 3. Possible recurrent urinary tract infection, no cultures done. 4. Scabies, status post Elimite, getting ivermectin weekly. 5. Quadriplegia. 6. History of right nephrectomy. 7. Multiple chronic wounds. 8. ALLERGY TO TETRACYCLINE. PLAN: Patient remains stable. Completing antibiotics. Pending cystoscopy tomorrow NANCY RN Problems: Consultation Date/Type/Reason Admit Date/Time Oct 21, 2016 at 15:46 Initial Consult Date 10/20/16 Type of Consultation: id Referring Provider: JOSÉ ANTONIO MIRZA MD Exam/Review of Systems Vital Signs Vitals Vital Signs Date Time Temp Pulse Resp B/P Pulse Ox O2 Delivery O2 Flow Rate FiO2 10/28/16 12:22 101 10/28/16 11:52 98.2 16 105/55 95 10/28/16 09:00 40 10/25/16 20:30 Mechanical Ventilator Intake and Output 10/27/16 10/27/16 10/28/16 15:00 23:00 07:00 Intake Total 650 ml 220 ml Output Total 850 ml Balance -200 ml 220 ml Results Result Diagram: 10/28/16 0945 10/28/16 0945 Results 24 hrs Laboratory Tests Test 10/28/16 09:45 White Blood Count 7.0 Red Blood Count 3.04 L Hemoglobin 9.0 L Hematocrit 30.3 L Mean Corpuscular Volume 99.7 Mean Corpuscular Hemoglobin 29.6 Mean Corpuscular Hemoglobin Concent 29.7 L Red Cell Distribution Width 14.6 H Platelet Count 178 Mean Platelet Volume 11.6 H Neutrophils % 75.7 Lymphocytes % 10.5 L Monocytes % 9.2 Eosinophils % 4.1 Basophils % 0.1 Nucleated Red Blood Cells % 0.0 Neutrophils # 5.3 Lymphocytes # 0.7 L Monocytes # 0.7 Eosinophils # 0.3 Basophils # 0.0 Nucleated Red Blood Cells # 0.0 Sodium Level 142 Potassium Level 5.0 Chloride Level 111 H Carbon Dioxide Level 23 Anion Gap 13 Blood Urea Nitrogen 39 H Creatinine 1.29 H Glucose Level 95 Calcium Level 8.8 Medications Medications Current Medications Dextrose (D50w Syringe) ONCE PRN IV POC BLOOD GLUCOSE <250 MG/DL; Start at 06:00 Hydromorphone HCl (Dilaudid) 1 mg Q4H PRN IV PAIN Last administered on 12:01; Admin Dose 1 MG; Start 10/20/16 at 10:00 Acetaminophen (Tylenol Liquid) 650 mg Q4H PRN GTB MILD PAIN LEVEL 1-3; Start at 13:30 Ascorbic Acid (Vitamin C) 500 mg DAILY GTB Last administered on 10/28/16 09:28 ; Admin Dose 500 MG; Start 10/20/16 at 14:00 Bisacodyl (Dulcolax Supp) 10 mg Q24H PRN [place] CONSTIPATION; Start 10/20/16 at 13: 30 Citric Acid/ Sodium Citrate (Bicitra Liquid (Ped)) 10 meq TID GTB Last administered on 10/28/16 09:27; Admin Dose 10 MEQ; Start 10/20/16 at 21:00 Docusate Sodium (Colace Liquid Cup) 200 mg QHS GTB Last administered on 21:27; Admin Dose 200 MG; Start 10/20/16 at 21:00 Enoxaparin Sodium (Lovenox) 30 mg DAILY SC ; Start 10/21/16 at 09:00; Status Future Hold Magnesium Hydroxide (Milk Of Mag) 30 ml DAILY PRN GTB CONSTIPATION; Start 10/20 at 13:30 Lansoprazole (Prevacid) 30 mg DAILY@06 GTB Last administered on 10/26/16 05:26 ; Admin Dose 30 MG; Start 10/21/16 at 06:00 Polyethylene Glycol (Miralax) 17 gm DAILY GTB Last administered on 10/27/16 09 :04; Admin Dose 17 GM; Start 10/20/16 at 13:30 Zinc Sulfate (Zinc Sulfate) 220 mg DAILY GTB Last administered on 10/28/16 09: 29; Admin Dose 220 MG; Start 10/21/16 at 09:00 Multivit/Ca Carb/ B Cmplx/FA/Prenat (Lilibeth-Linn) 1 tab DAILY GTB Last administered on 10/28/16 09:28; Admin Dose 1 TAB; Start 10/21/16 at 09:00 Acetaminophen/ Hydrocodone Bitart ([place] (5/325)) 1 tab Q6 PRN GTB PAIN LEVEL 1 -5 Last administered on 10/25/16 20:44; Admin Dose 1 TAB; Start 10/20/16 at 14: 00 Gabapentin (Neurontin Liquid) 100 mg TID GTB Last administered on 10/28/16 09: 28; Admin Dose 100 MG; Start 10/20/16 at 21:00 Risperidone (Risperdal) 1 mg QHS GTB Last administered on 10/27/16 21:26; Admin Dose 1 MG; Start 10/20/16 at 21:00 Ferrous Sulfate 300 mg 300 mg DAILY GTB Last administered on 10/28/16 09:28; Admin Dose 300 MG; Start 10/20/16 at 14:07 Meropenem/Sodium Chloride 50 ml @ 100 mls/hr Q12 IVPB Last administered on 09:39; Admin Dose 100 MLS/HR; Start 10/20/16 at 21:00 Vancomycin HCl/ Sodium Chloride (Vancocin/NS) 250 ml @ 83.333 mls/ hr Q48H IVPB Last administered on 10/26/16 21:54; Admin Dose 83.333 MLS/HR; Start at 20:00 [facility] This patient noriega... PRN PRN XX WOUND CARE; Start 10/20/16 at 20:00 Zolpidem Tartrate (Ambien) 5 mg HS PRN PO INSOMNIA Last administered on 21:33; Admin Dose 5 MG; Start 10/20/16 at 21:00 Permethrin (Elimite 5% Cr) 1 applic Q7D TOP Last administered on 10/21/16 16: 35; Admin Dose 1 APPLIC; Start 10/21/16 at 16:00; Stop 10/28/16 at 16:01 Mupirocin (Bactroban) 1 applic BID TOP Last administered on 10/28/16 09:29; Admin Dose 1 APPLIC; Start 10/22/16 at 21:00 Ivermectin (Stromectol) 12 mg Q7D PO Last administered on 10/22/16 13:18; Admin Dose 12 MG; Start 10/22/16 at 13:00; Stop 10/29/16 at 13:01 REGINALDO CHERY NP Oct 28, 2016 15:03
[2016-10-28] MEDS: PERMETHRIN 5% 60 GM CR TOP SCH (16:00)
--- NOTE | 2016-10-28 16:41 | CONS ---
Date/Time of Note Date/Time of Note DATE: 10/28/16 TIME: 16:39 Assessment/Plan Assessment/Plan Additional Assessment/Plan 1. Acute kidney injury secondary to severe prerenal azotemia and possible acute tubular necrosis. 2. Acute uremia with a BUN of 46, Cr 1.42 3. Acute hyperkalemia- resolved 5. 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 6. History of neurogenic bladder with urinary retention, status post suprapubic catheter. 7. History of previous recurrent urinary tract infections. 8. 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. 9. 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 10. Other medical history includes anxiety, depression, bipolar disorder, psychosis. 11. History of right nephrectomy with left renal nephrolithiasis and a left renal cyst measuring 5.3 cm in size. Plan: - Cr slightly went up to 1.29- pt has only one kidney - will montior cr in AM labs, if continues to rise then we will add IVF back on - IV abx meropenem and vancomycin, renally dose it - will follow up Consultation Date/Type/Reason Admit Date/Time Oct 21, 2016 at 15:46 Initial Consult Date 10/20/16 Type of Consultation: NEPHROLOGY Referring Provider: JOSÉ ANTONIO MIRZA MD 24 HR Interval Summary Free Text/Dictation pt stable, no acute events Exam/Review of Systems Vital Signs Vitals Vital Signs Date Time Temp Pulse Resp B/P Pulse Ox O2 Delivery O2 Flow Rate FiO2 10/28/16 16:35 96 10/28/16 15:38 97.8 22 112/65 98 10/28/16 09:00 40 10/25/16 20:30 Mechanical Ventilator Intake and Output 10/27/16 10/27/16 10/28/16 15:00 23:00 07:00 Intake Total 650 ml 220 ml Output Total 850 ml Balance -200 ml 220 ml Exam Constitutional: alert ENMT: nl external ears & nose, other (+ tracheostomy on ventilator ) Respiratory: clear to auscultation, crackles/rales Cardiovascular: nl pulses, regular rate and rhythm Gastrointestinal: non-tender, other (+ G tube placement ), soft Musculoskeletal: quadruplegic Results Result Diagram: 10/28/1645 10/28/1645 Results 24 hrs Laboratory Tests Test 9/22/17 09:45 White Blood Count 7.0 Red Blood Count 3.04 L Hemoglobin 9.0 L Hematocrit 30.3 L Mean Corpuscular Volume 99.7 Mean Corpuscular Hemoglobin 29.6 Mean Corpuscular Hemoglobin Concent 29.7 L Red Cell Distribution Width 14.6 H Platelet Count 178 Mean Platelet Volume 11.6 H Neutrophils % 75.7 Lymphocytes % 10.5 L Monocytes % 9.2 Eosinophils % 4.1 Basophils % 0.1 Nucleated Red Blood Cells % 0.0 Neutrophils # 5.3 Lymphocytes # 0.7 L Monocytes # 0.7 Eosinophils # 0.3 Basophils # 0.0 Nucleated Red Blood Cells # 0.0 Sodium Level 142 Potassium Level 5.0 Chloride Level 111 H Carbon Dioxide Level 23 Anion Gap 13 Blood Urea Nitrogen 39 H Creatinine 1.29 H Glucose Level 95 Calcium Level 8.8 Medications Medications Current Medications Dextrose (D50w Syringe) ONCE PRN IV POC BLOOD GLUCOSE <250 MG/DL; Start at 06:00 Hydromorphone HCl (Dilaudid) 1 mg Q4H PRN IV PAIN Last administered on 16:05; Admin Dose 1 MG; Start 10/20/16 at 10:00 Acetaminophen (Tylenol Liquid) 650 mg Q4H PRN GTB MILD PAIN LEVEL 1-3; Start at 13:30 Ascorbic Acid (Vitamin C) 500 mg DAILY GTB Last administered on 10/28/16 09:28 ; Admin Dose 500 MG; Start 10/20/16 at 14:00 Bisacodyl (Dulcolax Supp) 10 mg Q24H PRN [place] CONSTIPATION; Start 10/20/16 at 13: 30 Citric Acid/ Sodium Citrate (Bicitra Liquid (Ped)) 10 meq TID GTB Last administered on 10/28/16 15:17; Admin Dose 10 MEQ; Start 10/20/16 at 21:00 Docusate Sodium (Colace Liquid Cup) 200 mg QHS GTB Last administered on 21:27; Admin Dose 200 MG; Start 10/20/16 at 21:00 Enoxaparin Sodium (Lovenox) 30 mg DAILY SC ; Start 10/21/16 at 09:00; Status Future Hold Magnesium Hydroxide (Milk Of Mag) 30 ml DAILY PRN GTB CONSTIPATION; Start 10/20 at 13:30 Lansoprazole (Prevacid) 30 mg DAILY@06 GTB Last administered on 10/26/16 05:26 ; Admin Dose 30 MG; Start 10/21/16 at 06:00 Polyethylene Glycol (Miralax) 17 gm DAILY GTB Last administered on 10/27/16 09 :04; Admin Dose 17 GM; Start 10/20/16 at 13:30 Zinc Sulfate (Zinc Sulfate) 220 mg DAILY GTB Last administered on 10/28/16 09: 29; Admin Dose 220 MG; Start 10/21/16 at 09:00 Multivit/Ca Carb/ B Cmplx/FA/Prenat (Lilibeth-Linn) 1 tab DAILY GTB Last administered on 10/28/16 09:28; Admin Dose 1 TAB; Start 10/21/16 at 09:00 Acetaminophen/ Hydrocodone Bitart ([place] (5/325)) 1 tab Q6 PRN GTB PAIN LEVEL 1 -5 Last administered on 10/25/16 20:44; Admin Dose 1 TAB; Start 10/20/16 at 14: 00 Gabapentin (Neurontin Liquid) 100 mg TID GTB Last administered on 10/28/16 15: 17; Admin Dose 100 MG; Start 10/20/16 at 21:00 Risperidone (Risperdal) 1 mg QHS GTB Last administered on 10/27/16 21:26; Admin Dose 1 MG; Start 10/20/16 at 21:00 Ferrous Sulfate 300 mg 300 mg DAILY GTB Last administered on 10/28/16 09:28; Admin Dose 300 MG; Start 10/20/16 at 14:07 Meropenem/Sodium Chloride 50 ml @ 100 mls/hr Q12 IVPB Last administered on 09:39; Admin Dose 100 MLS/HR; Start 10/20/16 at 21:00 Vancomycin HCl/ Sodium Chloride (Vancocin/NS) 250 ml @ 83.333 mls/ hr Q48H IVPB Last administered on 10/26/16 21:54; Admin Dose 83.333 MLS/HR; Start at 20:00 Miscellaneous Information (Pending Santyl Order For Wound Care) This patient noriega... PRN PRN XX WOUND CARE; Start 10/20/16 at 20:00 Zolpidem Tartrate (Ambien) 5 mg HS PRN PO INSOMNIA Last administered on 21:33; Admin Dose 5 MG; Start 10/20/16 at 21:00 Permethrin (Elimite 5% Cr) 1 applic Q7D TOP Last administered on 10/21/16 16: 35; Admin Dose 1 APPLIC; Start 10/21/16 at 16:00; Stop 10/28/16 at 19:00 Mupirocin (Bactroban) 1 applic BID TOP Last administered on 10/28/16 09:29; Admin Dose 1 APPLIC; Start 10/22/16 at 21:00 Ivermectin (Stromectol) 12 mg Q7D PO Last administered on 10/22/16 13:18; Admin Dose 12 MG; Start 10/22/16 at 13:00; Stop 10/29/16 at 13:01 TIARA CISNEROS MD Oct 28, 2016 16:41
[2016-10-28] MEDS: VANCOMYCIN 1.25 GM in SOD CHLORIDE 0.9% 250 ML IVPB SCH (20:04)
[2016-10-28] MEDS: DOCUSATE SODIUM 10 MG/ML (10ML CUP) GTB SCH (20:06)
[2016-10-28] MEDS: RISPERIDONE 1 MG TAB GTB SCH (20:07)
[2016-10-28] MEDS: ZOLPIDEM 5 MG TAB PO PRN (21:28)
[2016-10-29] VITALS (34 sets, daily range): BP systolic 80–125; BP diastolic 50–85; PULSE 82–110; RESP 16–29
[2016-10-29] MEDS: HYDROmorphONE 1 MG/ML SYG IV PRN ×6 (00:41→22:20)
[2016-10-29] MEDS: IPRATROPIUM (HFA) 12.9 GM INHALER INH SCH ×4 (02:00→19:59)
[2016-10-29] MEDS: LEVALBUTEROL (HFA) 15 GM INHALER INH SCH ×4 (02:00→19:59)
[2016-10-29] MEDS: LANSOPRAZOLE 30 MG CAP GTB SCH (06:00)
[2016-10-29 06:32] LABS: BASOPHILS % 0.2 % (0.0-2.0); EOSINOPHILS # 0.3 10^3/ul (0.0-0.5); EOSINOPHILS % 6.1 % (0.0-7.0); HEMATOCRIT 30.7 % (42.0-52.0); HEMOGLOBIN 9.1 g/dl (14.0-18.0); LYMPHOCYTES # 0.8 10^3/ul (0.8-2.9); LYMPHOCYTES % 13.9 % (15.0-51.0); MEAN CORPUSCULAR HEMOGLOBIN 29.4 pg (29.0-33.0); MEAN CORPUSCULAR HGB CONC 29.6 g/dl (32.0-37.0); MEAN PLATELET VOLUME 11.2 fl (7.4-10.4); MONOCYTE # 0.6 10^3/ul (0.3-0.9); MONOCYTES % 10.2 % (0.0-11.0); NEUTROPHIL # 3.7 10^3/ul (1.6-7.5); PLATELET COUNT 167 10^3/UL (140-415); RED CELL DISTRIBUTION WIDTH 14.5 % (11.5-14.5); WHITE BLOOD COUNT 5.4 10^3/ul (4.8-10.8)
[2016-10-29 06:47] LABS: INR 1.08; PT RATIO 1.1; THROMBIN TIME 15.8 SEC (13.8-19.1)
[2016-10-29 07:33] LABS: CALCIUM 8.7 mg/dl (8.4-10.2); CREATININE 1.38 mg/dl (0.61-1.24); POTASSIUM 5.6 mmol/L (3.5-5.1)
[2016-10-29] MEDS ORDERED: ALBUTEROL 0.083% (NEB) 2.5 MG/3 ML AMP HHN STA (08:45)
[2016-10-29] MEDS: POLYETHYLENE GLYCOL 17 GM PACKET GTB SCH (08:51)
[2016-10-29] MEDS: FERROUS SULFATE 60 MG/ML 5ML CUP GTB SCH (08:51)
[2016-10-29] MEDS: GABAPENTIN (50 MG/ML PO SYG) GTB SCH ×3 (08:51→21:09)
[2016-10-29] MEDS: MULTIVIT/CA CARB/B CMPLX/FA TAB GTB SCH (08:51)
[2016-10-29] MEDS: CITRIC ACID/NA CIT (1 MEQ/ML POSYG) GTB SCH ×3 (08:51→21:09)
[2016-10-29] MEDS: ASCORBIC ACID 500 MG TAB GTB SCH (08:52)
[2016-10-29] MEDS: ZINC SULFATE 220 MG CAP GTB SCH (08:52)
--- NOTE | 2016-10-29 08:52 | PN ---
DATE: 10/29/2016 SUBJECTIVE DATA: The patient is resting comfortably. He is sitting. He has no signs of respiratory distress with continuous ventilator support through tracheostomy. OBJECTIVE DATA: His vital signs are stable. Temperature is 97.9, blood pressure is 122/85, pulse rate is 97, respirations 20, pulse oximetry 91 percent saturation on 40 percent inhaled oxygen concentration. Neck is supple. Tracheal secretions are clear. No bleeding is seen. Heart: Regular sinus rhythm. Chest: Breath sounds are heard bilaterally, diminished in both lower lung tierney. Otherwise clear. Abdomen is soft, not distended. He has been kept NPO for lithotripsy scheduled this morning. Extremities show no edema. He is paraplegic in both the lower extremities. LAB TESTS: Show sodium 143, potassium 5.6, bicarbonate of 24, glucose is 86, BUN is 41, creatinine is 1.8. CBC shows WBC 5400, hemoglobin 9.1, hematocrit 30.7, platelets 167. IMPRESSION: 1. Chronic ventilator-dependent respiratory failure. 2. Sepsis. 3. Chronic kidney disease. 4. Nephrolithiasis. 5. Chronic anemia. 6. Chronic bilateral pleural effusions. 7. 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 PLAN: 1. Continue long-term ventilator support. 2. Continue intravenous antibiotics as per Infectious Disease recommendations. 3. Continue pulmonary toilet with bronchodilator inhalation therapy. 4. Patient is scheduled for lithotripsy by the urologist. Dictated By: Palmer Ames MD /sera/bev /Document#: [id number]
[2016-10-29] MEDS: MUPIROCIN 2% 22 GM OINT TOP SCH ×2 (09:00→21:11)
[2016-10-29] MEDS ORDERED: INSULIN REGULAR, HUMAN 100 UNIT/1 ML 3ML VIAL IV ONE (09:00)
[2016-10-29] MEDS ORDERED: DEXTROSE 50% 50 ML SYRINGE IV ONE (09:00)
[2016-10-29] MEDS ORDERED: LABETALOL HCL 20MG INJ IV PRN (10:00)
[2016-10-29] MEDS ORDERED: hydrALAzine 20 MG INJ IV PRN (10:00)
[2016-10-29] MEDS ORDERED: DIPHENHYDRAMINE 50 MG INJ IV PRN (10:00)
[2016-10-29] MEDS ORDERED: FENTAnyl 50 MCG/ML VIAL IV PRN (10:00)
[2016-10-29] MEDS ORDERED: METOCLOPRAMIDE 10 MG INJ IV PRN (10:00)
[2016-10-29] MEDS ORDERED: PROCHLORPERAZINE 10 MG INJ IV PRN (10:00)
[2016-10-29] MEDS ORDERED: MEPERIDINE 25 MG INJ IV PRN (10:00)
[2016-10-29] MEDS ORDERED: EPHEDrine SULFATE 50 MG/5 ML SYG IV PRN (10:00)
[2016-10-29] MEDS ORDERED: HYDROmorphONE (0.2 MG/ML) 10ML SYG IV PRN (10:00)
[2016-10-29] MEDS ORDERED: ONDANSETRON 4 MG INJ IV PRN (10:00)
[2016-10-29] MEDS ORDERED: PHENYLephrine (100 MCG/ML) 5ML SYG ONE (10:33)
[2016-10-29] MEDS ORDERED: EPHEDrine SULFATE 50 MG/5 ML SYG ONE (10:33)
[2016-10-29] MEDS ORDERED: ONDANSETRON 4 MG INJ ONE (11:12)
[2016-10-29] MEDS ORDERED: IOHEXOL 300MG/ML 30 ML BTL ONE (11:28)
--- NOTE | 2016-10-29 12:55 | OPR ---
Date/Time of Note Date/Time of Note DATE: 10/29/16 TIME: 12:41 Operative Report Procedure Date: Oct 29, 2016 Preoperative Diagnosis Retained left ureteral JJ stent, the stent has been there for over 1 year, left renal stones Postoperative Diagnosis Retained left ureteral JJ stent, the stent has been there for over 1 year, left renal stones Operation Performed Left extracorporeal shockwave lithotripsy to the proximal curl of the JJ stent, cystoscopy through the penile urethra and through the suprapubic track, removal of the left ureteral JJ stent, left retrograde pyelogram. Surgeon Francois Marquez Anesthesia Type: general Anesthesiologist: ASHISH MORRIS MD Estimated Blood Loss: none Specimens Old left ureteral JJ stent, left renal urine for culture Complications: no Pt Condition Post Procedure: stable Disposition: PACU Indications Retained left ureteral JJ stent, the stent has been there for over 1 year, left renal stones Operative\Procedure Findings The patient was brought to the operating room isolation, precautions were taken because of history of scabies even though the patient has had 2 treatments and oral pills for the scabies. The patient does have a tracheostomy in place. He was moved to the lithotripsy machine table and general anesthesia was given. The JJ stent was visualized on the fluoroscopy. Shockwave lithotripsy treatment was delivered to the curl of the JJ stent in the kidney. A total of 2000 shockwaves were given. We gave about 400 shocks to 5 different spots of the curl to make sure it will uncurl when the stent is pulled. After the shockwave lithotripsy was done the patient lower abdomen genital area and upper thighs were prepped. it was very difficult to try to put him in the lithotomy position because of the severe contractures of his lower extremities. I had the nurse hold his left leg to be able to have access to his penis and the urethra. We covered him was sterile drapes then I introduced the 21 Moroccan cystoscope sheath under direct vision through the penile urethra. I was able to get into the bladder and visualized the distal end of the JJ stent but it was very difficult to try to pull it out because I could not see well since he was not in the lithotomy position. Then I decided to do the cystoscopy through the suprapubic tract and I did remove the suprapubic tube then introduced the cystoscope through the suprapubic track. The distal end of the JJ stent was visualized and grasped then while under fluoroscopy the JJ stent was pulled out while watching it uncurl over the kidney area. After that I did introduce a 5 Moroccan open ended into the left ureteral orifice and through the open ended I passed the Glidewire all the way up to the kidney. The Glidewire was removed and the open ended was used to do a retrograde pyelogram that showed that the kidney is not obstructed by any ureteral stones even though he does have dilatation of the calyces especially the lower pole calyces. I did withdraw the open ended gradually while injecting the contrast material in the ureter and there was no obstruction. Therefore I decided not to insert a new JJ stent. If in the future he needs to have any urological intervention and the ureter I think one could go through the suprapubic tract visualize the ureteral orifice and through that insert a stent or do what ever needs to be done. A 24 Moroccan catheter was then inserted through the suprapubic track, the balloon inflated was 10 mL of sterile water and the catheter connected to a drainage bag. The patient tolerated the procedure well and was transferred to the recovery room in stable and satisfactory condition. FRANCOIS MARQUEZ MD Oct 29, 2016 12:54
[2016-10-29] MEDS: MEROPENEM 500MG/50 ML (PMX) 50 ML IVPB SCH ×2 (13:55→22:19)
[2016-10-29] MEDS: IVERMECTIN 3 MG TAB PO SCH (13:55)
--- NOTE | 2016-10-29 18:43 | RADRPT ---
PROCEDURE: Intraoperative imaging of the abdomen and pelvis with fluoroscopy. CLINICAL INDICATION: Left urinary tract calculi. Intraoperative. TECHNIQUE: 20 images of the abdomen and pelvis were obtained in the operating room with an image i ntensifier. No radiologist was in attendance. 2 minutes and 56 seconds of fluoroscopy time was use d. COMPARISON: CT scan of the abdomen and pelvis dated 10/21/2016. FINDINGS: Initial images demonstrate injection of contrast into the left ureter and left intrarenal collecting system. There appears to be a duplex left collecting system and multiple filling defects consistent with calculi. Subsequent images demonstrate placement of a double pigtail left ureteral stent and t argeting of the left kidney stones for ESWL. IMPRESSION: 1. Satisfactory intraoperative imaging of the abdomen and pelvis. RPTAT: QQ .Cain Castellanos MD, Date Time Electronically viewed and signed by .Cain Castellanos MD, on 10/29/2016 18:42 .R/
--- NOTE | 2016-10-29 19:29 | PN ---
Date/Time of Note Date/Time of Note DATE: 10/29/16 TIME: 19:13 Assessment/Plan VTE Prophylaxis VTE Prophylaxis Intervention: other Lines/Catheters IV [facility] Type (from [facility] PICC Line Central line still needed: Yes Urinary Cath still in place: Yes Reason Cath still needed: urinary retention Assessment/Plan Assessment/Plan - Hyperkalemia-Lasix given per PATRICIA Lynn AM - Left renal nephrolithiasis - per Dr Marquez in urology consultation, - sp lithotripsy today - Sepsis due to HCAP, urinary tract infection, resolving. Dr. Maciel is following in infection disease consultation. Continue antibiotics per ID. - Neurogenic bladder with suprapubic catheter. - Acute kidney injury on chronic kidney disease. Continue to monitor renal function. - Status post right nephrectomy - Ventilator-dependent respiratory failure with tracheostomy. - Dysphagia with percutaneous endoscopic gastrostomy tube. - Multiple decubitus ulcers present on admission. - Cervical spine injury with paraplegia. - Bipolar disorder with psychosis. Further recommendations based on clinical course. Plan of care discussed with Dr. Barreto. Subjective 24 Hr Interval Summary Free Text/Dictation Alert/awake; Left renal nephrolithiasis- sp lithotripsy today; Hyperkalemia- Lasix given per PATRICIA Lynn AM . dw staff Constitutional: requiring O2 Respiratory: no complaints Cardiovascular: no complaints Gastrointestinal: no complaints Genitourinary: no complaints Musculoskeletal: no complaints Exam/Review of Systems Vital Signs Vitals Vital Signs Date Time Temp Pulse Resp B/P Pulse Ox O2 Delivery O2 Flow Rate FiO2 10/29/16 19:04 97.9 94 22 88/53 98 10/29/16 17:10 40 10/29/16 13:15 Mechanical Ventilator Intake and Output 10/28/16 10/28/16 10/29/16 14:59 22:59 06:59 Intake Total 1240 ml 800 ml Output Total 2300 ml 1100 ml 3000 ml Balance -2300 ml 140 ml -2200 ml Exam Constitutional: alert Respiratory: clear to auscultation, normal air movement Cardiovascular: nl pulses, regular rate and rhythm Gastrointestinal: non-tender, other (gt intact), soft Musculoskeletal: muscle weakness Extremities: normal pulses Neurological: nl mental status, other (follows simple commands) Results Result Diagram: 10/29/16 0606 10/29/16 0546 Results 24 hrs Laboratory Tests Test 10/29/16 05:46 10/29/16 06:06 Sodium Level 143 Potassium Level 5.6 H Chloride Level 112 H Carbon Dioxide Level 24 Anion Gap 13 Blood Urea Nitrogen 41 H Creatinine 1.38 H Glucose Level 86 Calcium Level 8.7 White Blood Count 5.4 # Red Blood Count 3.10 L Hemoglobin 9.1 L Hematocrit 30.7 L Mean Corpuscular Volume 99.0 Mean Corpuscular Hemoglobin 29.4 Mean Corpuscular Hemoglobin Concent 29.6 L Red Cell Distribution Width 14.5 Platelet Count 162 Mean Platelet Volume 11.2 H Neutrophils % 69.0 Lymphocytes % 13.9 L Monocytes % 10.2 Eosinophils % 6.1 Basophils % 0.2 Nucleated Red Blood Cells % 0.0 Neutrophils # 3.7 Lymphocytes # 0.8 Monocytes # 0.6 Eosinophils # 0.3 Basophils # 0.0 Nucleated Red Blood Cells # 0.0 Prothrombin Time 14.0 Prothrombin Time Ratio 1.1 INR International Normalized Ratio 1.08 Activated Partial Thromboplast Time 43.0 H Thrombin Time 15.8 Medications Medications Current Medications Dextrose (D50w Syringe) ONCE PRN IV POC BLOOD GLUCOSE <250 MG/DL; Start at 06:00 Hydromorphone HCl (Dilaudid) 1 mg Q4H PRN IV PAIN Last administered on 18:17; Admin Dose 1 MG; Start 10/20/16 at 10:00 Acetaminophen (Tylenol Liquid) 650 mg Q4H PRN GTB MILD PAIN LEVEL 1-3; Start at 13:30 Ascorbic Acid (Vitamin C) 500 mg DAILY GTB Last administered on 10/28/16 09:28 ; Admin Dose 500 MG; Start 10/20/16 at 14:00 Bisacodyl (Dulcolax Supp) 10 mg Q24H PRN [place] CONSTIPATION; Start 10/20/16 at 13: 30 Citric Acid/ Sodium Citrate (Bicitra Liquid (Ped)) 10 meq TID GTB Last administered on 10/29/16 13:56; Admin Dose 10 MEQ; Start 10/20/16 at 21:00 Docusate Sodium (Colace Liquid Cup) 200 mg QHS GTB Last administered on 20:06; Admin Dose 200 MG; Start 10/20/16 at 21:00 Enoxaparin Sodium (Lovenox) 30 mg DAILY SC ; Start 10/21/16 at 09:00; Status Future Hold Magnesium Hydroxide (Milk Of Mag) 30 ml DAILY PRN GTB CONSTIPATION; Start 10/20 at 13:30 Lansoprazole (Prevacid) 30 mg DAILY@06 GTB Last administered on 10/26/16 05:26 ; Admin Dose 30 MG; Start 10/21/16 at 06:00 Polyethylene Glycol (Miralax) 17 gm DAILY GTB Last administered on 10/27/16 09 :04; Admin Dose 17 GM; Start 10/20/16 at 13:30 Zinc Sulfate (Zinc Sulfate) 220 mg DAILY GTB Last administered on 10/28/16 09: 29; Admin Dose 220 MG; Start 10/21/16 at 09:00 Multivit/Ca Carb/ B Cmplx/FA/Prenat (Lilibeth-Linn) 1 tab DAILY GTB Last administered on 10/28/16 09:28; Admin Dose 1 TAB; Start 10/21/16 at 09:00 Acetaminophen/ Hydrocodone Bitart ([place] (5/325)) 1 tab Q6 PRN GTB PAIN LEVEL 1 -5 Last administered on 10/25/16 20:44; Admin Dose 1 TAB; Start 10/20/16 at 14: 00 Gabapentin (Neurontin Liquid) 100 mg TID GTB Last administered on 10/29/16 13: 56; Admin Dose 100 MG; Start 10/20/16 at 21:00 Risperidone (Risperdal) 1 mg QHS GTB Last administered on 10/28/16 20:07; Admin Dose 1 MG; Start 10/20/16 at 21:00 Ferrous Sulfate 300 mg 300 mg DAILY GTB Last administered on 10/28/16 09:28; Admin Dose 300 MG; Start 10/20/16 at 14:07 Meropenem/Sodium Chloride 50 ml @ 100 mls/hr Q12 IVPB Last administered on 13:55; Admin Dose 100 MLS/HR; Start 10/20/16 at 21:00 Vancomycin HCl/ Sodium Chloride (Vancocin/NS) 250 ml @ 83.333 mls/ hr Q48H IVPB Last administered on 10/28/16 20:04; Admin Dose 83.333 MLS/HR; Start at 20:00 Miscellaneous Information (Pending [facility]yl Order For Wound Care) This patient noriega... PRN PRN XX WOUND CARE; Start 10/20/16 at 20:00 Zolpidem Tartrate (Ambien) 5 mg HS PRN PO INSOMNIA Last administered on 21:28; Admin Dose 5 MG; Start 10/20/16 at 21:00 Mupirocin (Bactroban) 1 applic BID TOP Last administered on 10/29/16 09:00; Admin Dose 1 APPLIC; Start 10/22/16 at 21:00 NAE VELAZCO Oct 29, 2016 19:24
--- NOTE | 2016-10-29 19:49 | CONS ---
Date/Time of Note Date/Time of Note DATE: 10/29/16 TIME: 19:48 Assessment/Plan Assessment/Plan Additional Assessment/Plan 1. Acute kidney injury secondary to severe prerenal azotemia and possible acute tubular necrosis. 2. Acute uremia with a BUN of 46, Cr 1.42 3. Acute hyperkalemia- resolved 5. 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 6. History of neurogenic bladder with urinary retention, status post suprapubic catheter. 7. History of previous recurrent urinary tract infections. 8. 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 9. 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 10. Other medical history includes anxiety, depression, bipolar disorder, psychosis. 11. History of right nephrectomy with left renal nephrolithiasis and a left renal cyst measuring 5.3 cm in size. Plan: - K 5.6, Cr 1.38- I agave Dextrose 50% with insulin and breathign Rx ith albuterol in AM - IV abx meropenem and vancomycin, renally dose it - will follow up Consultation Date/Type/Reason Admit Date/Time Oct 21, 2016 at 15:46 Initial Consult Date 10/20/16 Type of Consultation: NEPHROLOGY Referring Provider: JOSÉ ANTONIO MIRZA MD 24 HR Interval Summary Free Text/Dictation K 5.8 today plan for procedure today Exam/Review of Systems Vital Signs Vitals Vital Signs Date Time Temp Pulse Resp B/P Pulse Ox O2 Delivery O2 Flow Rate FiO2 10/29/16 19:04 97.9 94 22 88/53 98 10/29/16 17:10 40 10/29/16 13:15 Mechanical Ventilator Intake and Output 10/28/16 10/28/16 10/29/16 15:00 23:00 07:00 Intake Total 1240 ml 800 ml Output Total 2300 ml 1100 ml 3000 ml Balance -2300 ml 140 ml -2200 ml Results Result Diagram: 10/29/16 0606 10/29/16 0546 Results 24 hrs Laboratory Tests Test 10/29/16 05:46 10/29/16 06:06 Sodium Level 143 Potassium Level 5.6 H Chloride Level 112 H Carbon Dioxide Level 24 Anion Gap 13 Blood Urea Nitrogen 41 H Creatinine 1.38 H Glucose Level 86 Calcium Level 8.7 White Blood Count 5.4 # Red Blood Count 3.10 L Hemoglobin 9.1 L Hematocrit 30.7 L Mean Corpuscular Volume 99.0 Mean Corpuscular Hemoglobin 29.4 Mean Corpuscular Hemoglobin Concent 29.6 L Red Cell Distribution Width 14.5 Platelet Count 162 Mean Platelet Volume 11.2 H Neutrophils % 69.0 Lymphocytes % 13.9 L Monocytes % 10.2 Eosinophils % 6.1 Basophils % 0.2 Nucleated Red Blood Cells % 0.0 Neutrophils # 3.7 Lymphocytes # 0.8 Monocytes # 0.6 Eosinophils # 0.3 Basophils # 0.0 Nucleated Red Blood Cells # 0.0 Prothrombin Time 14.0 Prothrombin Time Ratio 1.1 INR International Normalized Ratio 1.08 Activated Partial Thromboplast Time 43.0 H Thrombin Time 15.8 Medications Medications Current Medications Dextrose (D50w Syringe) ONCE PRN IV POC BLOOD GLUCOSE <250 MG/DL; Start at 06:00 Hydromorphone HCl (Dilaudid) 1 mg Q4H PRN IV PAIN Last administered on 18:17; Admin Dose 1 MG; Start 10/20/16 at 10:00 Acetaminophen (Tylenol Liquid) 650 mg Q4H PRN GTB MILD PAIN LEVEL 1-3; Start at 13:30 Ascorbic Acid (Vitamin C) 500 mg DAILY GTB Last administered on 10/28/16 09:28 ; Admin Dose 500 MG; Start 10/20/16 at 14:00 Bisacodyl (Dulcolax Supp) 10 mg Q24H PRN [place] CONSTIPATION; Start 10/20/16 at 13: 30 Citric Acid/ Sodium Citrate (Bicitra Liquid (Ped)) 10 meq TID GTB Last administered on 10/29/16 13:56; Admin Dose 10 MEQ; Start 10/20/16 at 21:00 Docusate Sodium (Colace Liquid Cup) 200 mg QHS GTB Last administered on 20:06; Admin Dose 200 MG; Start 10/20/16 at 21:00 Enoxaparin Sodium (Lovenox) 30 mg DAILY SC ; Start 10/21/16 at 09:00; Status Future Hold Magnesium Hydroxide (Milk Of Mag) 30 ml DAILY PRN GTB CONSTIPATION; Start 10/20 at 13:30 Lansoprazole (Prevacid) 30 mg DAILY@06 GTB Last administered on 10/26/16 05:26 ; Admin Dose 30 MG; Start 10/21/16 at 06:00 Polyethylene Glycol (Miralax) 17 gm DAILY GTB Last administered on 10/27/16 09 :04; Admin Dose 17 GM; Start 10/20/16 at 13:30 Zinc Sulfate (Zinc Sulfate) 220 mg DAILY GTB Last administered on 10/28/16 09: 29; Admin Dose 220 MG; Start 10/21/16 at 09:00 Multivit/Ca Carb/ B Cmplx/FA/Prenat (Lilibeth-Linn) 1 tab DAILY GTB Last administered on 10/28/16 09:28; Admin Dose 1 TAB; Start 10/21/16 at 09:00 Acetaminophen/ Hydrocodone Bitart ([place] (5/325)) 1 tab Q6 PRN GTB PAIN LEVEL 1 -5 Last administered on 10/25/16 20:44; Admin Dose 1 TAB; Start 10/20/16 at 14: 00 Gabapentin (Neurontin Liquid) 100 mg TID GTB Last administered on 10/29/16 13: 56; Admin Dose 100 MG; Start 10/20/16 at 21:00 Risperidone (Risperdal) 1 mg QHS GTB Last administered on 10/28/16 20:07; Admin Dose 1 MG; Start 10/20/16 at 21:00 Ferrous Sulfate 300 mg 300 mg DAILY GTB Last administered on 10/28/16 09:28; Admin Dose 300 MG; Start 10/20/16 at 14:07 Meropenem/Sodium Chloride 50 ml @ 100 mls/hr Q12 IVPB Last administered on 13:55; Admin Dose 100 MLS/HR; Start 10/20/16 at 21:00 Vancomycin HCl/ Sodium Chloride (Vancocin/NS) 250 ml @ 83.333 mls/ hr Q48H IVPB Last administered on 10/28/16 20:04; Admin Dose 83.333 MLS/HR; Start at 20:00 Miscellaneous Information (Pending Santyl Order For Wound Care) This patient noriega... PRN PRN XX WOUND CARE; Start 10/20/16 at 20:00 Zolpidem Tartrate (Ambien) 5 mg HS PRN PO INSOMNIA Last administered on 21:28; Admin Dose 5 MG; Start 10/20/16 at 21:00 Mupirocin (Bactroban) 1 applic BID TOP Last administered on 10/29/16 09:00; Admin Dose 1 APPLIC; Start 10/22/16 at 21:00 TIARA CISNEROS MD Oct 29, 2016 19:49
--- NOTE | 2016-10-29 20:00 | CONS ---
Date/Time of Note Date/Time of Note DATE: 10/29/16 TIME: 19:57 Assessment/Plan Assessment/Plan Chief Complaint/Hosp Course SUBJECTIVE DATA: No acute changes, looks comfortable, no fevers ANTIMICROBIALS: Patient is on day #10 abx 1. Vancomycin 2. Meropenem. INDWELLINGS: Trach, PEG, suprapubic catheter. OBJECTIVE DATA: GENERAL: Chronically ill-appearing, middle-aged man, who is in no distress. HEENT: Head atraumatic, normocephalic. Sclerae anicteric. Buccal mucosa dry. NECK: Supple. CHEST: Rise symmetrical. Breath sounds diminished at the bases. HEART: S1, S2. ABDOMEN: Soft, bowel sounds present. EXTREMITIES: Contracted, wasted. ASSESSMENT: 1. Resolving sepsis. 2. Healthcare-associated pneumonia. 3. Possible recurrent urinary tract infection, no cultures done. 4. Scabies, status post Elimite, getting ivermectin weekly. 5. Quadriplegia. 6. History of right nephrectomy. 7. Multiple chronic wounds. 8. S/p left extracorporeal shockwave lithotripsy, removal of the left ureteral JJ stent, left retrograde pyelogram. 9. ALLERGY TO TETRACYCLINE. PLAN: Patient remains stable. Completing antibiotics. NANCY RN Problems: Consultation Date/Type/Reason Admit Date/Time Oct 21, 2016 at 15:46 Initial Consult Date 10/20/16 Type of Consultation: id Referring Provider: JOSÉ ANTONIO MIRZA MD Exam/Review of Systems Vital Signs Vitals Vital Signs Date Time Temp Pulse Resp B/P Pulse Ox O2 Delivery O2 Flow Rate FiO2 10/29/16 19:04 97.9 94 22 88/53 98 10/29/16 17:10 40 10/29/16 13:15 Mechanical Ventilator Intake and Output 10/28/16 10/28/16 10/29/16 15:00 23:00 07:00 Intake Total 1240 ml 800 ml Output Total 2300 ml 1100 ml 3000 ml Balance -2300 ml 140 ml -2200 ml Results Result Diagram: 10/29/16 0606 10/29/16 0546 Results 24 hrs Laboratory Tests Test 10/29/16 05:46 10/29/16 06:06 Sodium Level 143 Potassium Level 5.6 H Chloride Level 112 H Carbon Dioxide Level 24 Anion Gap 13 Blood Urea Nitrogen 41 H Creatinine 1.38 H Glucose Level 86 Calcium Level 8.7 White Blood Count 5.4 # Red Blood Count 3.10 L Hemoglobin 9.1 L Hematocrit 30.7 L Mean Corpuscular Volume 99.0 Mean Corpuscular Hemoglobin 29.4 Mean Corpuscular Hemoglobin Concent 29.6 L Red Cell Distribution Width 14.5 Platelet Count 162 Mean Platelet Volume 11.2 H Neutrophils % 69.0 Lymphocytes % 13.9 L Monocytes % 10.2 Eosinophils % 6.1 Basophils % 0.2 Nucleated Red Blood Cells % 0.0 Neutrophils # 3.7 Lymphocytes # 0.8 Monocytes # 0.6 Eosinophils # 0.3 Basophils # 0.0 Nucleated Red Blood Cells # 0.0 Prothrombin Time 14.0 Prothrombin Time Ratio 1.1 INR International Normalized Ratio 1.08 Activated Partial Thromboplast Time 43.0 H Thrombin Time 15.8 Medications Medications Current Medications Dextrose (D50w Syringe) ONCE PRN IV POC BLOOD GLUCOSE <250 MG/DL; Start at 06:00 Hydromorphone HCl (Dilaudid) 1 mg Q4H PRN IV PAIN Last administered on 18:17; Admin Dose 1 MG; Start 10/20/16 at 10:00 Acetaminophen (Tylenol Liquid) 650 mg Q4H PRN GTB MILD PAIN LEVEL 1-3; Start at 13:30 Ascorbic Acid (Vitamin C) 500 mg DAILY GTB Last administered on 10/28/16 09:28 ; Admin Dose 500 MG; Start 10/20/16 at 14:00 Bisacodyl (Dulcolax Supp) 10 mg Q24H PRN [place] CONSTIPATION; Start 10/20/16 at 13: 30 Citric Acid/ Sodium Citrate (Bicitra Liquid (Ped)) 10 meq TID GTB Last administered on 10/29/16 13:56; Admin Dose 10 MEQ; Start 10/20/16 at 21:00 Docusate Sodium (Colace Liquid Cup) 200 mg QHS GTB Last administered on 20:06; Admin Dose 200 MG; Start 10/20/16 at 21:00 Enoxaparin Sodium (Lovenox) 30 mg DAILY SC ; Start 10/21/16 at 09:00; Status Future Hold Magnesium Hydroxide (Milk Of Mag) 30 ml DAILY PRN GTB CONSTIPATION; Start 10/20 at 13:30 Lansoprazole (Prevacid) 30 mg DAILY@06 GTB Last administered on 10/26/16 05:26 ; Admin Dose 30 MG; Start 10/21/16 at 06:00 Polyethylene Glycol (Miralax) 17 gm DAILY GTB Last administered on 10/27/16 09 :04; Admin Dose 17 GM; Start 10/20/16 at 13:30 Zinc Sulfate (Zinc Sulfate) 220 mg DAILY GTB Last administered on 10/28/16 09: 29; Admin Dose 220 MG; Start 10/21/16 at 09:00 Multivit/Ca Carb/ B Cmplx/FA/Prenat (Lilibeth-L[place]) 1 tab DAILY GTB Last administered on 10/28/16 09:28; Admin Dose 1 TAB; Start 10/21/16 at 09:00 Acetaminophen/ Hydrocodone Bitart ([place] (5/325)) 1 tab Q6 PRN GTB PAIN LEVEL 1 -5 Last administered on 10/25/16 20:44; Admin Dose 1 TAB; Start 10/20/16 at 14: 00 Gabapentin (Neurontin Liquid) 100 mg TID GTB Last administered on 10/29/16 13: 56; Admin Dose 100 MG; Start 10/20/16 at 21:00 Risperidone (Risperdal) 1 mg QHS GTB Last administered on 10/28/16 20:07; Admin Dose 1 MG; Start 10/20/16 at 21:00 Ferrous Sulfate 300 mg 300 mg DAILY GTB Last administered on 10/28/16 09:28; Admin Dose 300 MG; Start 10/20/16 at 14:07 Meropenem/Sodium Chloride 50 ml @ 100 mls/hr Q12 IVPB Last administered on 13:55; Admin Dose 100 MLS/HR; Start 10/20/16 at 21:00 Vancomycin HCl/ Sodium Chloride (Vancocin/NS) 250 ml @ 83.333 mls/ hr Q48H IVPB Last administered on 10/28/16 20:04; Admin Dose 83.333 MLS/HR; Start at 20:00 Miscellaneous Information (Pending [facility] Order For Wound Care) This patient noriega... PRN PRN XX WOUND CARE; Start 10/20/16 at 20:00 Zolpidem Tartrate (Ambien) 5 mg HS PRN PO INSOMNIA Last administered on 21:28; Admin Dose 5 MG; Start 10/20/16 at 21:00 Mupirocin (Bactroban) 1 applic BID TOP Last administered on 10/29/16 09:00; Admin Dose 1 APPLIC; Start 10/22/16 at 21:00 REGINALDO CHERY NP Oct 29, 2016 19:59
[2016-10-29] MEDS: DOCUSATE SODIUM 10 MG/ML (10ML CUP) GTB SCH (21:00)
[2016-10-29] MEDS: RISPERIDONE 1 MG TAB GTB SCH (21:10)
[2016-10-29] MEDS: ZOLPIDEM 5 MG TAB PO PRN (21:10)
[2016-10-30] VITALS (24 sets, daily range): BP systolic 92–107; BP diastolic 50–61; PULSE 99–110; RESP 19–36
[2016-10-30] MEDS: LEVALBUTEROL (HFA) 15 GM INHALER INH SCH ×6 (01:00→23:22)
[2016-10-30] MEDS: IPRATROPIUM (HFA) 12.9 GM INHALER INH SCH ×4 (01:00→19:38)
[2016-10-30] MEDS: HYDROmorphONE 1 MG/ML SYG IV PRN ×6 (03:37→23:55)
[2016-10-30] MEDS: LANSOPRAZOLE 30 MG CAP GTB SCH (06:00)
[2016-10-30 06:11] LABS: ABNORMAL IP MESSAGE 1; BASOPHILS % 0.2 % (0.0-2.0); EOSINOPHILS # 0.2 10^3/ul (0.0-0.5); EOSINOPHILS % 3.9 % (0.0-7.0); HEMATOCRIT 27.3 % (42.0-52.0); HEMOGLOBIN 8.5 g/dl (14.0-18.0); LYMPHOCYTES # 0.5 10^3/ul (0.8-2.9); LYMPHOCYTES % 8.4 % (15.0-51.0); MEAN CORPUSCULAR HEMOGLOBIN 31.1 pg (29.0-33.0); MEAN CORPUSCULAR HGB CONC 31.1 g/dl (32.0-37.0); MEAN PLATELET VOLUME 11.1 fl (7.4-10.4); MONOCYTE # 0.7 10^3/ul (0.3-0.9); MONOCYTES % 11.1 % (0.0-11.0); NEUTROPHIL # 4.5 10^3/ul (1.6-7.5); NEUTROPHILS % 76.1 % (39.0-77.0); PLATELET COUNT 149 10^3/UL (140-415); POSITIVE DIFF @See below; RED BLOOD COUNT 2.73 10^6/ul (4.70-6.10); RED CELL DISTRIBUTION WIDTH 14.5 % (11.5-14.5); WHITE BLOOD COUNT 5.9 10^3/ul (4.8-10.8)
[2016-10-30 06:30] LABS: CREATININE 1.58 mg/dl (0.61-1.24); POTASSIUM 5.6 mmol/L (3.5-5.1)
[2016-10-30] MEDS: CITRIC ACID/NA CIT (1 MEQ/ML POSYG) GTB SCH ×3 (08:35→21:04)
[2016-10-30] MEDS: ASCORBIC ACID 500 MG TAB GTB SCH (08:35)
[2016-10-30] MEDS: POLYETHYLENE GLYCOL 17 GM PACKET GTB SCH (08:35)
[2016-10-30] MEDS: ZINC SULFATE 220 MG CAP GTB SCH (08:35)
[2016-10-30] MEDS: FERROUS SULFATE 60 MG/ML 5ML CUP GTB SCH (08:35)
[2016-10-30] MEDS: MUPIROCIN 2% 22 GM OINT TOP SCH ×2 (08:35→21:05)
[2016-10-30] MEDS: MULTIVIT/CA CARB/B CMPLX/FA TAB GTB SCH (08:35)
[2016-10-30] MEDS: GABAPENTIN (50 MG/ML PO SYG) GTB SCH ×3 (08:35→21:04)
[2016-10-30] MEDS: MEROPENEM 500MG/50 ML (PMX) 50 ML IVPB SCH ×2 (08:35→21:04)
--- NOTE | 2016-10-30 09:46 | PN ---
DATE: 10/30/2016 SUBJECTIVE DATA: The patient had lithotripsy, cystoscopy with removal of the ureteral stent from the left ureter yesterday. Subsequently, the patient has remained stable. He has not had any fever spikes. OBJECTIVE DATA: This morning his temperature is 98.3, blood pressure 94/52, pulse rate is 87, respirations 25. Pulse oximetry showing 96 percent saturation. Tracheal secretions are clear. His breathing appears comfortable with ventilator support. Heart has a regular rhythm. Chest: Breath sounds are diminished in lower lung [place], but otherwise clear. Abdomen is soft, nondistended. Normal bowel sounds. He has been tolerating oral feedings. Extremities show no edema. He is paraplegic. LAB TESTS: This morning shows a sodium 138, potassium 5.6, bicarb 25, glucose 115, BUN 45, creatinine 1.8. BUN and creatinine have shown slight increase. CBC shows WBC 5900, hemoglobin 8.5, hematocrit 27.3, platelets 149,000. IMPRESSION: 1. Chronic ventilator-dependent respiratory failure. 2. Sepsis. 3. Chronic kidney disease. 4. Nephrolithiasis. 5. Chronic anemia. 6. Chronic bilateral pleural effusions. 7. 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 PLAN: 1. Continue long-term ventilator support. 2. Antibiotics per Infectious Disease senior wind energy consultant's recommendations. 3. Continue pulmonary toilet with bronchodilator inhalation therapy. Overall patient's pulmonary status remains stable. 4. Discharge planning may be not for long-term placement. Dictated By: Palmer Ames MD /sera/bev /Document#: [id number]
[2016-10-30] MEDS ORDERED: ALBUTEROL 0.083% (NEB) 2.5 MG/3 ML AMP HHN STA (12:14)
[2016-10-30] MEDS ORDERED: NA POLYST SULFON 15 GM/60 ML BTL PO ONE (12:30)
[2016-10-30] MEDS: SOD CHLORIDE 0.9% 1,000 ML IV SCH (13:23)
--- NOTE | 2016-10-30 13:25 | CONS ---
Date/Time of Note Date/Time of Note DATE: 10/30/16 TIME: 13:23 Assessment/Plan Assessment/Plan Additional Assessment/Plan 1. Acute kidney injury secondary to severe prerenal azotemia and possible acute tubular necrosis. 2. Acute uremia with a BUN of 46, Cr 1.42 3. Acute hyperkalemia- resolved 5. 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 6. History of neurogenic bladder with urinary retention, status post suprapubic catheter. 7. History of previous recurrent urinary tract infections. 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 9. 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 10. Other medical history includes anxiety, depression, bipolar disorder, psychosis. 11. History of right nephrectomy with left renal nephrolithiasis and a left renal cyst measuring 5.3 cm in size. 12. Hyperkalemia Plan: - K 5.6- will give kayexalate 15 gram pO x1 - sometime he refuses it- I ordered nebuliser treatment with Albuterol 5 mg I will give NS 1 liter now - IV abx meropenem and vancomycin, renally dose it - will follow up Consultation Date/Type/Reason Admit Date/Time Oct 21, 2016 at 15:46 Initial Consult Date 10/20/16 Type of Consultation: id Referring Provider: JOSÉ ANTONIO MIRZA MD Exam/Review of Systems Vital Signs Vitals Vital Signs Date Time Temp Pulse Resp B/P Pulse Ox O2 Delivery O2 Flow Rate FiO2 10/30/16 12:21 103 10/30/16 12:18 97.5 20 96/54 93 10/30/16 11:00 50 10/29/16 13:15 Mechanical Ventilator Intake and Output 10/29/16 10/29/16 10/30/16 15:00 23:00 07:00 Intake Total 100 ml 950 ml Output Total 218 ml 950 ml Balance -118 ml 0 ml Results Result Diagram: 10/30/16 0553 10/30/16 0555 Results 24 hrs Laboratory Tests Test 10/30/16 05:53 10/30/16 05:55 White Blood Count 5.9 Red Blood Count 2.73 L Hemoglobin 8.5 L Hematocrit 27.3 L Mean Corpuscular Volume 100.0 Mean Corpuscular Hemoglobin 31.1 Mean Corpuscular Hemoglobin Concent 31.1 L Red Cell Distribution Width 14.5 Platelet Count 149 Mean Platelet Volume 11.1 H Neutrophils % 76.1 Lymphocytes % 8.4 L Monocytes % 11.1 H Eosinophils % 3.9 Basophils % 0.2 Nucleated Red Blood Cells % 0.0 Neutrophils # 4.5 Lymphocytes # 0.5 L Monocytes # 0.7 Eosinophils # 0.2 Basophils # 0.0 Nucleated Red Blood Cells # 0.0 Sodium Level 138 Potassium Level 5.6 H Chloride Level 107 Carbon Dioxide Level 25 Anion Gap 12 Blood Urea Nitrogen 45 H Creatinine 1.58 H Glucose Level 115 Calcium Level 8.0 L Medications Medications Current Medications Dextrose (D50w Syringe) ONCE PRN IV POC BLOOD GLUCOSE <250 MG/DL; Start at 06:00 Hydromorphone HCl (Dilaudid) 1 mg Q4H PRN IV PAIN Last administered on 11:45; Admin Dose 1 MG; Start 10/20/16 at 10:00 Acetaminophen (Tylenol Liquid) 650 mg Q4H PRN GTB MILD PAIN LEVEL 1-3; Start at 13:30 Ascorbic Acid (Vitamin C) 500 mg DAILY GTB Last administered on 10/30/16 08:35 ; Admin Dose 500 MG; Start 10/20/16 at 14:00 Bisacodyl (Dulcolax Supp) 10 mg Q24H PRN [place] CONSTIPATION; Start 10/20/16 at 13: 30 Citric Acid/ Sodium Citrate (Bicitra Liquid (Ped)) 10 meq TID GTB Last administered on 10/30/16 11:45; Admin Dose 10 MEQ; Start 10/20/16 at 21:00 Docusate Sodium (Colace Liquid Cup) 200 mg QHS GTB Last administered on 20:06; Admin Dose 200 MG; Start 10/20/16 at 21:00 Enoxaparin Sodium (Lovenox) 30 mg DAILY SC ; Start 10/21/16 at 09:00; Status Future Hold Magnesium Hydroxide (Milk Of Mag) 30 ml DAILY PRN GTB CONSTIPATION; Start 10/20 at 13:30 Lansoprazole (Prevacid) 30 mg DAILY@06 GTB Last administered on 10/26/16 05:26 ; Admin Dose 30 MG; Start 10/21/16 at 06:00 Polyethylene Glycol (Miralax) 17 gm DAILY GTB Last administered on 10/30/16 08 :35; Admin Dose 17 GM; Start 10/20/16 at 13:30 Zinc Sulfate (Zinc Sulfate) 220 mg DAILY GTB Last administered on 10/30/16 08: 35; Admin Dose 220 MG; Start 10/21/16 at 09:00 Multivit/Ca Carb/ B Cmplx/FA/Prenat ([place]ilib[place]-L[place]) 1 tab DAILY GTB Last administered on 10/30/16 08:35; Admin Dose 1 TAB; Start 10/21/16 at 09:00 Acetaminophen/ Hydrocodone Bitart ([place] (5/325)) 1 tab Q6 PRN GTB PAIN LEVEL 1 -5 Last administered on 10/25/16 20:44; Admin Dose 1 TAB; Start 10/20/16 at 14: 00 Gabapentin (Neurontin Liquid) 100 mg TID GTB Last administered on 10/30/16 11: 45; Admin Dose 100 MG; Start 10/20/16 at 21:00 Risperidone (Risperdal) 1 mg QHS GTB Last administered on 10/29/16 21:10; Admin Dose 1 MG; Start 10/20/16 at 21:00 Ferrous Sulfate 300 mg 300 mg DAILY GTB Last administered on 10/30/16 08:35; Admin Dose 300 MG; Start 10/20/16 at 14:07 Meropenem/Sodium Chloride 50 ml @ 100 mls/hr Q12 IVPB Last administered on 08:35; Admin Dose 100 MLS/HR; Start 10/20/16 at 21:00 Vancomycin HCl/ Sodium Chloride (Vancocin/NS) 250 ml @ 83.333 mls/ hr Q48H IVPB Last administered on 10/28/16 20:04; Admin Dose 83.333 MLS/HR; Start at 20:00 Miscellaneous Information (Pending Santyl Order For Wound Care) This patient noriega... PRN PRN XX WOUND CARE; Start 10/20/16 at 20:00 Zolpidem Tartrate (Ambien) 5 mg HS PRN PO INSOMNIA Last administered on 21:10; Admin Dose 5 MG; Start 10/20/16 at 21:00 Mupirocin 1 applic 1 applic BID TOP Last administered on 10/30/16t 08:35; Admin Dose 1 APPLIC; Start 10/22/16 at 21:00 Sodium Chloride (NS) 1,000 ml @ 75 mls/hr [id number] IV ; Start 10/30/16 at 12:30 TIARA CISNEROS MD Oct 30, 2016 13:25
--- NOTE | 2016-10-30 14:45 | CONS ---
Date/Time of Note Date/Time of Note DATE: 10/30/16 TIME: 14:41 Assessment/Plan Assessment/Plan Chief Complaint/Hosp Course Assessment/Plan Chief Complaint/Hosp Course SUBJECTIVE DATA: No acute changes. Complains of Upper Back Pain. ANTIMICROBIALS: Patient is on day #10 abx 1. Vancomycin 2. Meropenem. INDWELLINGS: Trach, PEG, suprapubic catheter. OBJECTIVE DATA: GENERAL: Chronically ill-appearing, middle-aged man, who is in no distress. HEENT: Head atraumatic, normocephalic. Sclerae anicteric. Buccal mucosa dry. NECK: Supple. CHEST: Rise symmetrical. Breath sounds diminished at the bases. HEART: S1, S2. ABDOMEN: Soft, bowel sounds present. EXTREMITIES: Contracted, wasted. ASSESSMENT: 1. Resolving sepsis. 2. Healthcare-associated pneumonia. 3. Possible recurrent urinary tract infection, no cultures done. 4. Scabies, status post Elimite, getting ivermectin weekly. 5. Quadriplegia. 6. History of right nephrectomy. 7. Multiple chronic wounds. 8. S/p left extracorporeal shockwave lithotripsy, removal of the left ureteral JJ stent, left retrograde pyelogram. 9. ALLERGY TO TETRACYCLINE. 10. Upper Back Pain. PLAN: Patient remains stable. Completing antibiotics. Pain Management. Monitor Labs. Problems: Consultation Date/Type/Reason Admit Date/Time Oct 21, 2016 at 15:46 Initial Consult Date 10/20/16 Type of Consultation: id Referring Provider: JOSÉ ANTONIO MIRZA MD Exam/Review of Systems Vital Signs Vitals Vital Signs Date Time Temp Pulse Resp B/P Pulse Ox O2 Delivery O2 Flow Rate FiO2 10/30/16 13:05 98 36 95 50 10/30/16 12:18 97.5 96/54 10/29/16 13:15 Mechanical Ventilator Intake and Output 10/29/16 10/29/16 10/30/16 15:00 23:00 07:00 Intake Total 100 ml 950 ml Output Total 218 ml 950 ml Balance -118 ml 0 ml Results Result Diagram: 10/30/16 0553 10/30/16 0555 Results 24 hrs Laboratory Tests Test 10/30/16 05:53 10/30/16 05:55 White Blood Count 5.9 Red Blood Count 2.73 L Hemoglobin 8.5 L Hematocrit 27.3 L Mean Corpuscular Volume 100.0 Mean Corpuscular Hemoglobin 31.1 Mean Corpuscular Hemoglobin Concent 31.1 L Red Cell Distribution Width 14.5 Platelet Count 149 Mean Platelet Volume 11.1 H Neutrophils % 76.1 Lymphocytes % 8.4 L Monocytes % 11.1 H Eosinophils % 3.9 Basophils % 0.2 Nucleated Red Blood Cells % 0.0 Neutrophils # 4.5 Lymphocytes # 0.5 L Monocytes # 0.7 Eosinophils # 0.2 Basophils # 0.0 Nucleated Red Blood Cells # 0.0 Sodium Level 138 Potassium Level 5.6 H Chloride Level 107 Carbon Dioxide Level 25 Anion Gap 12 Blood Urea Nitrogen 45 H Creatinine 1.58 H Glucose Level 115 Calcium Level 8.0 L Medications Medications Current Medications Dextrose (D50w Syringe) ONCE PRN IV POC BLOOD GLUCOSE <250 MG/DL; Start at 06:00 Hydromorphone HCl (Dilaudid) 1 mg Q4H PRN IV PAIN Last administered on 11:45; Admin Dose 1 MG; Start 10/20/16 at 10:00 Acetaminophen (Tylenol Liquid) 650 mg Q4H PRN GTB MILD PAIN LEVEL 1-3; Start at 13:30 Ascorbic Acid (Vitamin C) 500 mg DAILY GTB Last administered on 10/30/16 08:35 ; Admin Dose 500 MG; Start 10/20/16 at 14:00 Bisacodyl (Dulcolax Supp) 10 mg Q24H PRN [place] CONSTIPATION; Start 10/20/16 at 13: 30 Citric Acid/ Sodium Citrate (Bicitra Liquid (Ped)) 10 meq TID GTB Last administered on 10/30/16 11:45; Admin Dose 10 MEQ; Start 10/20/16 at 21:00 Docusate Sodium (Colace Liquid Cup) 200 mg QHS GTB Last administered on 20:06; Admin Dose 200 MG; Start 10/20/16 at 21:00 Enoxaparin Sodium (Lovenox) 30 mg DAILY SC ; Start 10/21/16 at 09:00; Status Future Hold Magnesium Hydroxide (Milk Of Mag) 30 ml DAILY PRN GTB CONSTIPATION; Start 10/20 at 13:30 Lansoprazole (Prevacid) 30 mg DAILY@06 GTB Last administered on 10/26/16 05:26 ; Admin Dose 30 MG; Start 10/21/16 at 06:00 Polyethylene Glycol (Miralax) 17 gm DAILY GTB Last administered on 10/30/16 08 :35; Admin Dose 17 GM; Start 10/20/16 at 13:30 Zinc Sulfate (Zinc Sulfate) 220 mg DAILY GTB Last administered on 10/30/16 08: 35; Admin Dose 220 MG; Start 10/21/16 at 09:00 Multivit/Ca Carb/ B Cmplx/FA/Prenat ([place]ilib[place]-L[place]) 1 tab DAILY GTB Last administered on 10/30/16 08:35; Admin Dose 1 TAB; Start 10/21/16 at 09:00 Acetaminophen/ Hydrocodone Bitart ([place] (5/325)) 1 tab Q6 PRN GTB PAIN LEVEL 1 -5 Last administered on 10/25/16 20:44; Admin Dose 1 TAB; Start 10/20/16 at 14: 00 Gabapentin (Neurontin Liquid) 100 mg TID GTB Last administered on 10/30/16 11: 45; Admin Dose 100 MG; Start 10/20/16 at 21:00 Risperidone (Risperdal) 1 mg QHS GTB Last administered on 10/29/16 21:10; Admin Dose 1 MG; Start 10/20/16 at 21:00 Ferrous Sulfate 300 mg 300 mg DAILY GTB Last administered on 10/30/16 08:35; Admin Dose 300 MG; Start 10/20/16 at 14:07 Meropenem/Sodium Chloride 50 ml @ 100 mls/hr Q12 IVPB Last administered on 08:35; Admin Dose 100 MLS/HR; Start 10/20/16 at 21:00 Vancomycin HCl/ Sodium Chloride (Vancocin/NS) 250 ml @ 83.333 mls/ hr Q48H IVPB Last administered on 10/28/16 20:04; Admin Dose 83.333 MLS/HR; Start at 20:00 Miscellaneous Information (Pending Santyl Order For Wound Care) This patient noriega... PRN PRN XX WOUND CARE; Start 10/20/16 at 20:00 Zolpidem Tartrate (Ambien) 5 mg HS PRN PO INSOMNIA Last administered on 21:10; Admin Dose 5 MG; Start 10/20/16 at 21:00 Mupirocin 1 applic 1 applic BID TOP Last administered on 10/30/16 08:35; Admin Dose 1 APPLIC; Start 10/22/16 at 21:00 Sodium Chloride (NS) 1,000 ml @ 75 mls/hr [id number] IV Last administered on 10/30 13:23; Admin Dose 75 MLS/HR; Start 10/30/16 at 12:30 JESSICA JORDAN [employer]ACH[employer] Oct 30, 2016 14:45
--- NOTE | 2016-10-30 16:24 | PN ---
Date/Time of Note Date/Time of Note DATE: 10/30/16 TIME: 16:21 Assessment/Plan VTE Prophylaxis VTE Prophylaxis Intervention: other Lines/Catheters [facility] Type [facility]from [facility] PICC Line Central line still needed: Yes Urinary Cath still in place: Yes Reason Cath still needed: urinary retention Assessment/Plan Assessment/Plan - Hyperkalemia- nephrology follows, bmp am - Left renal nephrolithiasis - per Dr Marquez in urology consultation, - sp lithotripsy today - Sepsis due to HCAP, urinary tract infection, resolving. Dr. Maciel is following in infection disease consultation. Continue antibiotics per ID. - Neurogenic bladder with suprapubic catheter. - Acute kidney injury on chronic kidney disease. Continue to monitor renal function. - Status post right nephrectomy - Ventilator-dependent respiratory failure with tracheostomy. - Dysphagia with percutaneous endoscopic gastrostomy tube. - Multiple decubitus ulcers present on admission. - Cervical spine injury with paraplegia. - Bipolar disorder with psychosis. Further recommendations based on clinical course. Plan of care discussed with Dr. Barreto. Subjective 24 Hr Interval Summary Free Text/Dictation nad, afebrile, no new complaints, dw staff, Constitutional: requiring IVF, requiring O2 Respiratory: no complaints Cardiovascular: no complaints Genitourinary: no complaints Exam/Review of Systems Vital Signs Vitals Vital Signs Date Time Temp Pulse Resp B/P Pulse Ox O2 Delivery O2 Flow Rate FiO2 10/30/16 16:00 98.2 101 20 100/58 93 10/30/16 13:05 50 10/29/16 13:15 Mechanical Ventilator Intake and Output 10/29/16 10/29/16 10/30/16 15:00 23:00 07:00 Intake Total 100 ml 950 ml Output Total 218 ml 950 ml Balance -118 ml 0 ml Exam Constitutional: alert Respiratory: clear to auscultation, diminished breath sounds Cardiovascular: nl pulses Gastrointestinal: non-tender, soft Musculoskeletal: muscle weakness Extremities: normal pulses Neurological: other Results Result Diagram: 10/30/16 0553 10/30/16 0555 Results 24 hrs Laboratory Tests Test 10/30/16 05:53 10/30/16 05:55 White Blood Count 5.9 Red Blood Count 2.73 L Hemoglobin 8.5 L Hematocrit 27.3 L Mean Corpuscular Volume 100.0 Mean Corpuscular Hemoglobin 31.1 Mean Corpuscular Hemoglobin Concent 31.1 L Red Cell Distribution Width 14.5 Platelet Count 149 Mean Platelet Volume 11.1 H Neutrophils % 76.1 Lymphocytes % 8.4 L Monocytes % 11.1 H Eosinophils % 3.9 Basophils % 0.2 Nucleated Red Blood Cells % 0.0 Neutrophils # 4.5 Lymphocytes # 0.5 L Monocytes # 0.7 Eosinophils # 0.2 Basophils # 0.0 Nucleated Red Blood Cells # 0.0 Sodium Level 138 Potassium Level 5.6 H Chloride Level 107 Carbon Dioxide Level 25 Anion Gap 12 Blood Urea Nitrogen 45 H Creatinine 1.58 H Glucose Level 115 Calcium Level 8.0 L Medications Medications Current Medications Dextrose (D50w Syringe) ONCE PRN IV POC BLOOD GLUCOSE <250 MG/DL; Start at 06:00 Hydromorphone HCl (Dilaudid) 1 mg Q4H PRN IV PAIN Last administered on 15:57; Admin Dose 1 MG; Start 10/20/16 at 10:00 Acetaminophen (Tylenol Liquid) 650 mg Q4H PRN GTB MILD PAIN LEVEL 1-3; Start at 13:30 Ascorbic Acid (Vitamin C) 500 mg DAILY GTB Last administered on 10/30/16 08:35 ; Admin Dose 500 MG; Start 10/20/16 at 14:00 Bisacodyl (Dulcolax Supp) 10 mg Q24H PRN [place] CONSTIPATION; Start 10/20/16 at 13: 30 Citric Acid/ Sodium Citrate (Bicitra Liquid (Ped)) 10 meq TID GTB Last administered on 10/30/16 11:45; Admin Dose 10 MEQ; Start 10/20/16 at 21:00 Docusate Sodium (Colace Liquid Cup) 200 mg QHS GTB Last administered on 20:06; Admin Dose 200 MG; Start 10/20/16 at 21:00 Enoxaparin Sodium (Lovenox) 30 mg DAILY SC ; Start 10/21/16 at 09:00; Status Future Hold Magnesium Hydroxide (Milk Of Mag) 30 ml DAILY PRN GTB CONSTIPATION; Start 10/20 at 13:30 Lansoprazole (Prevacid) 30 mg DAILY@06 GTB Last administered on 10/26/16 05:26 ; Admin Dose 30 MG; Start 10/21/16 at 06:00 Polyethylene Glycol (Miralax) 17 gm DAILY GTB Last administered on 10/30/16 08 :35; Admin Dose 17 GM; Start 10/20/16 at 13:30 Zinc Sulfate (Zinc Sulfate) 220 mg DAILY GTB Last administered on 10/30/16 08: 35; Admin Dose 220 MG; Start 10/21/16 at 09:00 Multivit/Ca Carb/ B Cmplx/FA/Prenat (Lilibeth-Linn) 1 tab DAILY GTB Last administered on 10/30/16 08:35; Admin Dose 1 TAB; Start 10/21/16 at 09:00 Acetaminophen/ Hydrocodone Bitart ([place] (5/325)) 1 tab Q6 PRN GTB PAIN LEVEL 1 -5 Last administered on 10/25/16 20:44; Admin Dose 1 TAB; Start 10/20/16 at 14: 00 Gabapentin (Neurontin Liquid) 100 mg TID GTB Last administered on 10/30/16 11: 45; Admin Dose 100 MG; Start 10/20/16 at 21:00 Risperidone (Risperdal) 1 mg QHS GTB Last administered on 10/29/16 21:10; Admin Dose 1 MG; Start 10/20/16 at 21:00 Ferrous Sulfate 300 mg 300 mg DAILY GTB Last administered on 10/30/16 08:35; Admin Dose 300 MG; Start 10/20/16 at 14:07 Meropenem/Sodium Chloride 50 ml @ 100 mls/hr Q12 IVPB Last administered on 08:35; Admin Dose 100 MLS/HR; Start 10/20/16 at 21:00 Vancomycin HCl/ Sodium Chloride (Vancocin/NS) 250 ml @ 83.333 mls/ hr Q48H IVPB Last administered on 10/28/16 20:04; Admin Dose 83.333 MLS/HR; Start at 20:00 Miscellaneous Information (Pending Santyl Order For Wound Care) This patient noriega... PRN PRN XX WOUND CARE; Start 10/20/16 at 20:00 Zolpidem Tartrate (Ambien) 5 mg HS PRN PO INSOMNIA Last administered on 21:10; Admin Dose 5 MG; Start 10/20/16 at 21:00 Mupirocin 1 applic 1 applic BID TOP Last administered on 10/30/16 08:35; Admin Dose 1 APPLIC; Start 10/22/16 at 21:00 Sodium Chloride (NS) 1,000 ml @ 75 mls/hr [id number] IV Last administered on 10/30 13:23; Admin Dose 75 MLS/HR; Start 10/30/16 at 12:30 Miscellaneous Information (*Rx Drug Level Order Reminder*) VANCOMYCIN TROUGH AT 1900 ONCE ONCE XX ; Start 10/30/16 at 19:00; Stop 10/30/16 at 19:01 NAE VELAZCO Oct 30, 2016 16:24
[2016-10-30] MEDS: DOCUSATE SODIUM 10 MG/ML (10ML CUP) GTB SCH (21:04)
[2016-10-30] MEDS: RISPERIDONE 1 MG TAB GTB SCH (21:04)
[2016-10-30] MEDS: ZOLPIDEM 5 MG TAB PO PRN (21:13)
[2016-10-30] MEDS ORDERED: VANCOMYCIN 1 GM in NS 250 ML IVPB SCH (22:00)
[2016-10-30] MEDS: HYDROCODONE/APAP (5/325) TAB GTB PRN (23:10)
[2016-10-31] VITALS (23 sets, daily range): BP systolic 98–121; BP diastolic 55–77; PULSE 87–120; RESP 15–26
[2016-10-31] MEDS: IPRATROPIUM (HFA) 12.9 GM INHALER INH SCH ×4 (01:11→19:47)
[2016-10-31] MEDS: LEVALBUTEROL (HFA) 15 GM INHALER INH SCH ×4 (01:11→19:47)
[2016-10-31] MEDS: HYDROmorphONE 1 MG/ML SYG IV PRN ×4 (04:56→20:03)
[2016-10-31] MEDS: SOD CHLORIDE 0.9% 1,000 ML IV SCH (04:57)
[2016-10-31] MEDS: LANSOPRAZOLE 30 MG CAP GTB SCH (05:07)
[2016-10-31] MEDS: HYDROCODONE/APAP (5/325) TAB GTB PRN (06:21)
[2016-10-31 07:42] LABS: CREATININE 1.66 mg/dl (0.61-1.24)
--- NOTE | 2016-10-31 08:02 | PN ---
Date/Time of Note Date/Time of Note DATE: 10/31/16 TIME: 07:58 Assessment/Plan VTE Prophylaxis VTE Prophylaxis Intervention: other Lines/Catheters IV C[facility] Type (from [facility]): PICC Line Central line still needed: Yes Urinary Cath still in place: Yes Reason Cath still needed: urinary retention Assessment/Plan Chief Complaint/Hosp Course This is a 40-year-old male who was admitted to the hospital from a nursing facility because of hypoxemia. 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 Patient has a tracheostomy and also has a suprapubic tube. Patient has had a right nephrectomy. He only has a left kidney and KUB and CT scan showed that he has a JJ stent. The CT scan showed the JJ stent to be in good place with stones in the lower pole of the left kidney and there is 1 stone close to the proximal curl of the stent .The stent appeared to be in good position. I talked to the patient and he said he has had it for over 1 year and it was inserted for him in a hospital in [place] He underwent extracorporeal shockwave lithotripsy to the proximal curl of the JJ stent and a cystoscopy through the suprapubic tract and through the urethra and the JJ stent was removed. There was no ureteral obstruction that required to insert a new JJ stent. The old JJ stent was very dark and almost rotten Problems: Subjective 24 Hr Interval Summary Constitutional: no complaints Eyes: no complaints ENT: no complaints Respiratory: other (Patient on respirator) Cardiovascular: No chest pain Gastrointestinal: no complaints Genitourinary: other (Suprapubic tube in place) Exam/Review of Systems Vital Signs Vitals Vital Signs Date Time Temp Pulse Resp B/P Pulse Ox O2 Delivery O2 Flow Rate FiO2 10/31/16 07:54 98.0 86 18 107/65 96 10/31/16 05:14 60 10/29/16 13:15 Mechanical Ventilator Intake and Output 10/30/16 10/30/16 10/31/16 15:00 23:00 07:00 Intake Total 600 ml 2250 ml Output Total 1800 ml Balance 600 ml 450 ml Exam Constitutional: alert Psych: no complaints Respiratory: other (Patient on respiratory) Genitourinary - Male: other (Suprapubic tube draining clear urine) Results Result Diagram: 10/30/16 0553 10/30/16 0555 Results 24 hrs Laboratory Tests Test 10/30/16 18:46 10/31/16 06:00 Vancomycin Level Trough 16.7 Blood Urea Nitrogen 45 H Creatinine 1.66 H Medications Medications Current Medications Dextrose (D50w Syringe) ONCE PRN IV POC BLOOD GLUCOSE <250 MG/DL; Start at 06:00 Hydromorphone HCl (Dilaudid) 1 mg Q4H PRN IV PAIN Last administered on 04:56; Admin Dose 1 MG; Start 10/20/16 at 10:00 Acetaminophen (Tylenol Liquid) 650 mg Q4H PRN GTB MILD PAIN LEVEL 1-3; Start at 13:30 Ascorbic Acid (Vitamin C) 500 mg DAILY GTB Last administered on 10/30/16 08:35 ; Admin Dose 500 MG; Start 10/20/16 at 14:00 Bisacodyl (Dulcolax Supp) 10 mg Q24H PRN [place] CONSTIPATION; Start 10/20/16 at 13: 30 Citric Acid/ Sodium Citrate (Bicitra Liquid (Ped)) 10 meq TID GTB Last administered on 10/30/16 21:04; Admin Dose 10 MEQ; Start 10/20/16 at 21:00 Docusate Sodium (Colace Liquid Cup) 200 mg QHS GTB Last administered on 21:04; Admin Dose 200 MG; Start 10/20/16 at 21:00 Enoxaparin Sodium (Lovenox) 30 mg DAILY SC ; Start 10/21/16 at 09:00; Status Future Hold Magnesium Hydroxide (Milk Of Mag) 30 ml DAILY PRN GTB CONSTIPATION; Start 10/20 at 13:30 Lansoprazole (Prevacid) 30 mg DAILY@06 GTB Last administered on 10/31/16 05:07 ; Admin Dose 30 MG; Start 10/21/16 at 06:00 Polyethylene Glycol (Miralax) 17 gm DAILY GTB Last administered on 10/30/16 08 :35; Admin Dose 17 GM; Start 10/20/16 at 13:30 Zinc Sulfate (Zinc Sulfate) 220 mg DAILY GTB Last administered on 10/30/16 08: 35; Admin Dose 220 MG; Start 10/21/16 at 09:00 Multivit/Ca Carb/ B Cmplx/FA/Prenat (Lilibeth-Linn) 1 tab DAILY GTB Last administered on 10/30/16 08:35; Admin Dose 1 TAB; Start 10/21/16 at 09:00 Acetaminophen/ Hydrocodone Bitart ([place] (5/325)) 1 tab Q6 PRN GTB PAIN LEVEL 1 -5 Last administered on 10/31/16 06:21; Admin Dose 1 TAB; Start 10/20/16 at 14: 00 Gabapentin (Neurontin Liquid) 100 mg TID GTB Last administered on 10/30/16 21: 04; Admin Dose 100 MG; Start 10/20/16 at 21:00 Risperidone (Risperdal) 1 mg QHS GTB Last administered on 10/30/16 21:04; Admin Dose 1 MG; Start 10/20/16 at 21:00 Ferrous Sulfate 300 mg 300 mg DAILY GTB Last administered on 10/30/16 08:35; Admin Dose 300 MG; Start 10/20/16 at 14:07 Meropenem/Sodium Chloride (Merrem 500mg/50 ml(Pmx)) 50 ml @ 100 mls/hr Q12 IVPB Last administered on 10/30/16 21:04; Admin Dose 100 MLS/HR; Start at 21:00 Miscellaneous Information (Pending [facility] Order For Wound Care) This patient noriega... PRN PRN XX WOUND CARE; Start 10/20/16 at 20:00 Zolpidem Tartrate (Ambien) 5 mg HS PRN PO INSOMNIA Last administered on 21:13; Admin Dose 5 MG; Start 10/20/16 at 21:00 Mupirocin 1 applic 1 applic BID TOP Last administered on 10/30/16 21:05; Admin Dose 1 APPLIC; Start 10/22/16 at 21:00 Sodium Chloride 1,000 ml @ 75 mls/hr [id number] IV Last administered on 04:57; Admin Dose 75 MLS/HR; Start 10/30/16 at 12:30 Vancomycin HCl (Vancocin) 250 ml @ 125 mls/hr Q48H IVPB Last administered on 23:04; Admin Dose 125 MLS/HR; Start 10/30/16 at 22:00 BHARGAV JIANG MD Oct 31, 2016 08:02
[2016-10-31] MEDS: GABAPENTIN (50 MG/ML PO SYG) GTB SCH ×3 (09:00→20:15)
[2016-10-31] MEDS: FERROUS SULFATE 60 MG/ML 5ML CUP GTB SCH (09:08)
[2016-10-31] MEDS: ZINC SULFATE 220 MG CAP GTB SCH (09:08)
[2016-10-31] MEDS: POLYETHYLENE GLYCOL 17 GM PACKET GTB SCH (09:08)
[2016-10-31] MEDS: MULTIVIT/CA CARB/B CMPLX/FA TAB GTB SCH (09:09)
[2016-10-31] MEDS: ASCORBIC ACID 500 MG TAB GTB SCH (09:09)
[2016-10-31] MEDS: CITRIC ACID/NA CIT (1 MEQ/ML POSYG) GTB SCH ×3 (09:09→20:15)
[2016-10-31] MEDS: MUPIROCIN 2% 22 GM OINT TOP SCH ×2 (09:14→20:15)
[2016-10-31] MEDS: MEROPENEM 500MG/50 ML (PMX) 50 ML IVPB SCH (09:18)
--- NOTE | 2016-10-31 09:50 | PN ---
DATE: 10/31/2016 SUBJECTIVE DATA: The patient is awake, alert, responsive, sometimes he becomes noncooperative with the respiratory therapy and refuses to be take any of the home medications through the G- tube and also orally. OBJECTIVE DATA: VITAL SIGNS: Stable. He has not had any fever. Temperature is 98. Blood pressure of 107/65. Pulse rate is 86. Respirations are 18. Pulse oximetry 96 percent saturation. NECK: Tracheal secretions are clear. No bleeding is seen. Most of the time he leaves the cuff deflated and he will not allow the respiratory therapist to inflate the cuff to have adequate tidal volume. HEART: Regular rhythm. CHEST: Breath sounds are bilaterally diminished in the lower lung tierney, otherwise, clear. ABDOMEN: Soft and not distended. He is able to eat orally. Normal bowel sounds. No vomiting has been reported. EXTREMITIES: Show no edema. He is paraplegic. LABORATORY AND DIAGNOSTIC DATA: His BUN is 45, creatinine is 1.66 today. IMPRESSION: 1. Chronic respiratory failure. 2. Sepsis. Resolving. 3. Chronic kidney disease. Improving. 4. Nephrolithiasis. Status post lithotripsy. 5. Chronic anemia. 6. Chronic bilateral pleural effusions. 7. Paraplegia, secondary to spinal cord injury in the past. PLAN: 1. We will try him off the ventilator. If tolerated, we will discontinue the ventilator. Blood gases will be followed after discontinuing the ventilator support. This is being done as the patient gets very low tidal volumes because the cuff is left deflated and possibly he may be able to tolerate spontaneous breathing off the ventilator support. 2. Antibiotic therapy has been completed. 3. Continue pulmonary toilet with bronchodilator inhalation therapy. 4. Continue oral feedings as tolerated. Overall, his pulmonary status remains clinically stable. If the blood gas is acceptable off the ventilator support, discharge planning may be initiated and ventilator support may be discontinue. Dictated By: Palmer Ames MD /sera/wilian /Document#: [id number]
[2016-10-31] MEDS ORDERED: IVERMECTIN 3 MG TAB PO ONE (11:00)
[2016-10-31] MEDS ORDERED: PERMETHRIN 5% 60 GM CR TOP ONE ×2 (11:00→21:00)
--- NOTE | 2016-10-31 14:29 | CONS ---
Date/Time of Note Date/Time of Note DATE: 10/31/16 TIME: 14:27 Assessment/Plan Assessment/Plan Additional Assessment/Plan Sepsis/SIRS Hypotension, improved Sinus tachycardia, improved Acute kidney injury, improved Respiratory Failure Preserved EF on echocardiogram March 02, 2016 History of intermittent [place] I Chronic pain syndrome -Heart rate trend overall stable. Continue to hold any antihypertensive medications. Antibiotics as per primary team. Consultation Date/Type/Reason Admit Date/Time Oct 21, 2016 at 15:46 Initial Consult Date 10/20/16 Type of Consultation: cv Referring Provider: JOSÉ ANTONIO MIRZA MD 24 HR Interval Summary Free Text/Dictation Denies shortness of breath, palpitations Exam/Review of Systems Vital Signs Vitals Vital Signs Date Time Temp Pulse Resp B/P Pulse Ox O2 Delivery O2 Flow Rate FiO2 10/31/16 13:40 97 25 96 50 10/31/16 11:39 97.7 98/58 10/29/16 13:15 Mechanical Ventilator Intake and Output 10/30/16 10/30/16 10/31/16 15:00 23:00 07:00 Intake Total 600 ml 2250 ml Output Total 1800 ml Balance 600 ml 450 ml Exam No apparent distress Constitutional: alert, oriented Head: normocephalic Neck: other (Tracheostomy) Respiratory: other (Coarse breath sounds bilaterally, no wheezing) Cardiovascular: other (S1-S2 heard), regular rate and rhythm Gastrointestinal: bowel sounds, non-tender, soft Extremities: other (No significant edema) Results Result Diagram: 10/30/16 0553 10/31/16 0600 Results 24 hrs Laboratory Tests Test 10/30/16 18:46 10/31/16 06:00 Vancomycin Level Trough 16.7 Potassium Level 5.5 H Blood Urea Nitrogen 45 H Creatinine 1.66 H Medications Medications Current Medications Dextrose (D50w Syringe) ONCE PRN IV POC BLOOD GLUCOSE <250 MG/DL; Start at 06:00 Hydromorphone HCl (Dilaudid) 1 mg Q4H PRN IV PAIN Last administered on t 13:07; Admin Dose 1 MG; Start 10/20/16 at 10:00 Acetaminophen (Tylenol Liquid) 650 mg Q4H PRN GTB MILD PAIN LEVEL 1-3; Start at 13:30 Ascorbic Acid (Vitamin C) 500 mg DAILY GTB Last administered on 10/31/16 09:09 ; Admin Dose 500 MG; Start 10/20/16 at 14:00 Bisacodyl (Dulcolax Supp) 10 mg Q24H PRN [place] CONSTIPATION; Start 10/20/16 at 13: 30 Citric Acid/ Sodium Citrate (Bicitra Liquid (Ped)) 10 meq TID GTB Last administered on 10/31/16 12:36; Admin Dose 10 MEQ; Start 10/20/16 at 21:00 Docusate Sodium (Colace Liquid Cup) 200 mg QHS GTB Last administered on 21:04; Admin Dose 200 MG; Start 10/20/16 at 21:00 Enoxaparin Sodium (Lovenox) 30 mg DAILY SC ; Start 10/21/16 at 09:00; Status Future Hold Magnesium Hydroxide (Milk Of Mag) 30 ml DAILY PRN GTB CONSTIPATION; Start 10/20 at 13:30 Lansoprazole (Prevacid) 30 mg DAILY@06 GTB Last administered on 10/31/16 05:07 ; Admin Dose 30 MG; Start 10/21/16 at 06:00 Polyethylene Glycol (Miralax) 17 gm DAILY GTB Last administered on 10/31/16 09 :08; Admin Dose 17 GM; Start 10/20/16 at 13:30 Zinc Sulfate (Zinc Sulfate) 220 mg DAILY GTB Last administered on 10/31/16 09: 08; Admin Dose 220 MG; Start 10/21/16 at 09:00 Multivit/Ca Carb/ B Cmplx/FA/Prenat (Lilibeth-Linn) 1 tab DAILY GTB Last administered on 10/31/16 09:09; Admin Dose 1 TAB; Start 10/21/16 at 09:00 Acetaminophen/ Hydrocodone Bitart ([place] (5/325)) 1 tab Q6 PRN GTB PAIN LEVEL 1 -5 Last administered on 10/31/16 06:21; Admin Dose 1 TAB; Start 10/20/16 at 14: 00 Gabapentin (Neurontin Liquid) 100 mg TID GTB Last administered on 10/31/16 12: 36; Admin Dose 100 MG; Start 10/20/16 at 21:00 Risperidone (Risperdal) 1 mg QHS GTB Last administered on 10/30/16 21:04; Admin Dose 1 MG; Start 10/20/16 at 21:00 Ferrous Sulfate (Feosol Liquid Cup) 300 mg DAILY GTB Last administered on 09:08; Admin Dose 300 MG; Start 10/20/16 at 14:07 Miscellaneous Information (Pending Santyl Order For Wound Care) This patient noriega... PRN PRN XX WOUND CARE; Start 10/20/16 at 20:00 Zolpidem Tartrate (Ambien) 5 mg HS PRN PO INSOMNIA Last administered on 21:13; Admin Dose 5 MG; Start 10/20/16 at 21:00 Mupirocin 1 applic 1 applic BID TOP Last administered on 10/31/16 09:14; Admin Dose 1 APPLIC; Start 10/22/16 at 21:00 Vancomycin HCl (Vancocin) 250 ml @ 125 mls/hr Q48H IVPB Last administered on 23:04; Admin Dose 125 MLS/HR; Start 10/30/16 at 22:00 Permethrin (Elimite 5% Cr) 1 applic ONCE ONCE TOP ; Start 10/31/16 at 21:00; Stop 10/31/16 at 21:01 Deandre Chavez DO Oct 31, 2016 14:29
--- NOTE | 2016-10-31 14:58 | PN ---
DATE: 10/31/2016 SUBJECTIVE DATA: No acute changes overnight. The patient is alert, looks comfortable. Denies pain. No fevers. MICROBIOLOGY: Repeat urine culture during procedure growing Enterococcus species. INDWELLINGS: Trach, PEG, suprapubic catheter. ANTIMICROBIALS: The patient is on vancomycin status post meropenem that was discontinued this morning. PHYSICAL EXAMINATION: GENERAL: Well developed, chronically ill-appearing, middle-aged, quadriplegic man, who is in no distress. HEENT: Head atraumatic, normocephalic. Sclerae anicteric. Buccal mucosa dry. NECK: Supple. Tracheostomy present. CHEST: Chest rise symmetrical. Breath sounds diminished to bases. HEART: S1, S2. ABDOMEN: Soft, bowel sounds present. EXTREMITIES: Without cyanosis, wasted. ASSESSMENT: 1. Status post septic shock. 2. Status post pneumonia. 3. Scabies, status post Elimite and ivermectin dose. 4. History of right nephrectomy. 5. Status post shockwave lithotripsy with removal of old stent. 6. Multiple chronic wounds. PLAN: The patient remains stable. Meropenem discontinued. We will keep him on vancomycin to cover Enterococcus that he is growing in his urine. Await for final cultures. Follow Urology recommendations. Dictated By: Celso Mancilla NP /sera/maida /Document#: [id number]
[2016-10-31] MEDS ORDERED: NA POLYST SULFON 15 GM/60 ML BTL PO ONE (17:30)
--- NOTE | 2016-10-31 17:54 | PN ---
Date/Time of Note Date/Time of Note DATE: 10/31/16 TIME: 17:48 Assessment/Plan VTE Prophylaxis VTE Prophylaxis Intervention: SCD's Lines/Catheters IV [facility]ter Type (from [facility]): PICC Line Central line still needed: Yes Urinary Cath still in place: Yes Reason Cath still needed: urinary retention Assessment/Plan Chief Complaint/Hosp Course Patient with increased creatinine and hyperkalemia, Kayexalate ordered. Intraoperative culture came with enterococcus, patient is currently on vancomycin Assessment/Plan - Possible scabies, started on Elimite - Sepsis due to HCAP, urinary tract infection, resolving. Dr. Maciel is following in infection disease consultation. Continue antibiotics per ID. - Neurogenic bladder with suprapubic catheter. - Left renal nephrolithiasis, Dr Marquez is following in urology consultation. S /p lithotripsy and movable of a left ureteral JJ stent by Dr. Marquez 10/29. - Acute kidney injury on chronic kidney disease. Continue to monitor renal function. - Status post right nephrectomy - Ventilator-dependent respiratory failure with tracheostomy. - Dysphagia with percutaneous endoscopic gastrostomy tube. - Multiple decubitus ulcers present on admission. - Cervical spine injury with paraplegia. - Bipolar disorder with psychosis. Further recommendations based on clinical course. Plan of care discussed with Dr. Barreto. Problems: Exam/Review of Systems Vital Signs Vitals Vital Signs Date Time Temp Pulse Resp B/P Pulse Ox O2 Delivery O2 Flow Rate FiO2 10/31/16 17:25 101 23 95 50 10/31/16 15:23 98.9 98/57 10/29/16 13:15 Mechanical Ventilator Intake and Output 10/30/16 10/30/16 10/31/16 15:00 23:00 07:00 Intake Total 600 ml 2250 ml Output Total 1800 ml Balance 600 ml 450 ml Exam Constitutional: alert Neck: other (Urostomy), supple Respiratory: diminished breath sounds Cardiovascular: nl pulses, regular rate and rhythm Gastrointestinal: non-tender, other (G-tube), soft Extremities: normal pulses Skin: other (multiple decubitus ulcers) Results Result Diagram: 10/30/16 0553 10/31/16 0600 Results 24 hrs Laboratory Tests Test 10/30/16 18:46 10/31/16 06:00 Vancomycin Level Trough 16.7 Potassium Level 5.5 H Blood Urea Nitrogen 45 H Creatinine 1.66 H Medications Medications Current Medications Dextrose (D50w Syringe) ONCE PRN IV POC BLOOD GLUCOSE <250 MG/DL; Start at 06:00 Hydromorphone HCl (Dilaudid) 1 mg Q4H PRN IV PAIN Last administered on 13:07; Admin Dose 1 MG; Start 10/20/16 at 10:00 Acetaminophen (Tylenol Liquid) 650 mg Q4H PRN GTB MILD PAIN LEVEL 1-3; Start at 13:30 Ascorbic Acid (Vitamin C) 500 mg DAILY GTB Last administered on 10/31/16 09:09 ; Admin Dose 500 MG; Start 10/20/16 at 14:00 Bisacodyl (Dulcolax Supp) 10 mg Q24H PRN [place] CONSTIPATION; Start 10/20/16 at 13: 30 Citric Acid/ Sodium Citrate (Bicitra Liquid (Ped)) 10 meq TID GTB Last administered on 10/31/16 12:36; Admin Dose 10 MEQ; Start 10/20/16 at 21:00 Docusate Sodium (Colace Liquid Cup) 200 mg QHS GTB Last administered on 21:04; Admin Dose 200 MG; Start 10/20/16 at 21:00 Enoxaparin Sodium (Lovenox) 30 mg DAILY SC ; Start 10/21/16 at 09:00; Status Future Hold Magnesium Hydroxide (Milk Of Mag) 30 ml DAILY PRN GTB CONSTIPATION; Start 10/20 at 13:30 Lansoprazole (Prevacid) 30 mg DAILY@06 GTB Last administered on 10/31/16 05:07 ; Admin Dose 30 MG; Start 10/21/16 at 06:00 Polyethylene Glycol (Miralax) 17 gm DAILY GTB Last administered on 10/31/16 09 :08; Admin Dose 17 GM; Start 10/20/16 at 13:30 Zinc Sulfate (Zinc Sulfate) 220 mg DAILY GTB Last administered on 10/31/16 09: 08; Admin Dose 220 MG; Start 10/21/16 at 09:00 Multivit/Ca Carb/ B Cmplx/FA/Prenat (Lilibeth-Linn) 1 tab DAILY GTB Last administered on 10/31/16 09:09; Admin Dose 1 TAB; Start 10/21/16 at 09:00 Acetaminophen/ Hydrocodone Bitart ([place] (5/325)) 1 tab Q6 PRN GTB PAIN LEVEL 1 -5 Last administered on 10/31/16 06:21; Admin Dose 1 TAB; Start 10/20/16 at 14: 00 Gabapentin (Neurontin Liquid) 100 mg TID GTB Last administered on 10/31/16 12: 36; Admin Dose 100 MG; Start 10/20/16 at 21:00 Risperidone (Risperdal) 1 mg QHS GTB Last administered on 10/30/16 21:04; Admin Dose 1 MG; Start 10/20/16 at 21:00 Ferrous Sulfate (Feosol Liquid Cup) 300 mg DAILY GTB Last administered on 09:08; Admin Dose 300 MG; Start 10/20/16 at 14:07 Miscellaneous Information (Pending [facility] Order For Wound Care) This patient noriega... PRN PRN XX WOUND CARE; Start 10/20/16 at 20:00 Zolpidem Tartrate (Ambien) 5 mg HS PRN PO INSOMNIA Last administered on 21:13; Admin Dose 5 MG; Start 10/20/16 at 21:00 Mupirocin 1 applic 1 applic BID TOP Last administered on 10/31/16 09:14; Admin Dose 1 APPLIC; Start 10/22/16 at 21:00 Vancomycin HCl (Vancocin) 250 ml @ 125 mls/hr Q48H IVPB Last administered on 23:04; Admin Dose 125 MLS/HR; Start 10/30/16 at 22:00 Permethrin (Elimite 5% Cr) 1 applic ONCE ONCE TOP ; Start 10/31/16 at 21:00; Stop 10/31/16 at 21:01 AISSATOU DUNCAN Oct 31, 2016 17:54
--- NOTE | 2016-10-31 18:46 | CONS ---
Date/Time of Note Date/Time of Note DATE: 10/31/16 TIME: 18:44 Assessment/Plan Assessment/Plan Additional Assessment/Plan 1. Acute kidney injury secondary to severe prerenal azotemia and possible acute tubular necrosis. 2. Acute uremia with a BUN of 46, Cr 1.42 3. Acute hyperkalemia- resolved 5. 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 6. History of neurogenic bladder with urinary retention, status post suprapubic catheter. 7. History of previous recurrent urinary tract infections. 8. 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 9. 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 10. Other medical history includes anxiety, depression, bipolar disorder, psychosis. 11. History of right nephrectomy with left renal nephrolithiasis and a left renal cyst measuring 5.3 cm in size. 12. Hyperkalemia Plan: - K 5.5- will give kayexalate 15 gram pO x1 - sometime he refuses it - IV abx meropenem and vancomycin, renally dose it - will follow up Consultation Date/Type/Reason Admit Date/Time Oct 21, 2016 at 15:46 Initial Consult Date 10/20/16 Type of Consultation: NEPHROLOGY Referring Provider: JOSÉ ANTONIO MIRZA MD 24 HR Interval Summary Free Text/Dictation K 5.5, Cr 1.66 Exam/Review of Systems Vital Signs Vitals Vital Signs Date Time Temp Pulse Resp B/P Pulse Ox O2 Delivery O2 Flow Rate FiO2 10/31/16 17:25 101 23 95 50 10/31/16 15:23 98.9 98/57 10/29/16 13:15 Mechanical Ventilator Intake and Output 10/30/16 10/30/16 10/31/16 15:00 23:00 07:00 Intake Total 600 ml 2250 ml Output Total 1800 ml Balance 600 ml 450 ml Exam Constitutional: alert ENMT: nl external ears & nose, other (+ tracheostomy on ventilator ) Respiratory: clear to auscultation, crackles/rales Cardiovascular: nl pulses, regular rate and rhythm Gastrointestinal: non-tender, other (+ G tube placement ), soft Musculoskeletal: quadruplegic Results Result Diagram: 10/30/16 0553 10/31/16 0600 Results 24 hrs Laboratory Tests Test 10/30/16 18:46 10/31/16 06:00 Vancomycin Level Trough 16.7 Potassium Level 5.5 H Blood Urea Nitrogen 45 H Creatinine 1.66 H Medications Medications Current Medications Dextrose (D50w Syringe) ONCE PRN IV POC BLOOD GLUCOSE <250 MG/DL; Start at 06:00 Hydromorphone HCl (Dilaudid) 1 mg Q4H PRN IV PAIN Last administered on 13:07; Admin Dose 1 MG; Start 10/20/16 at 10:00 Acetaminophen (Tylenol Liquid) 650 mg Q4H PRN GTB MILD PAIN LEVEL 1-3; Start at 13:30 Ascorbic Acid (Vitamin C) 500 mg DAILY GTB Last administered on 10/31/16 09:09 ; Admin Dose 500 MG; Start 10/20/16 at 14:00 Bisacodyl (Dulcolax Supp) 10 mg Q24H PRN [place] CONSTIPATION; Start 10/20/16 at 13: 30 Citric Acid/ Sodium Citrate (Bicitra Liquid (Ped)) 10 meq TID GTB Last administered on 10/31/16 12:36; Admin Dose 10 MEQ; Start 10/20/16 at 21:00 Docusate Sodium (Colace Liquid Cup) 200 mg QHS GTB Last administered on 21:04; Admin Dose 200 MG; Start 10/20/16 at 21:00 Enoxaparin Sodium (Lovenox) 30 mg DAILY SC ; Start 10/21/16 at 09:00; Status Future Hold Magnesium Hydroxide (Milk Of Mag) 30 ml DAILY PRN GTB CONSTIPATION; Start 10/20 at 13:30 Lansoprazole (Prevacid) 30 mg DAILY@06 GTB Last administered on 10/31/16 05:07 ; Admin Dose 30 MG; Start 10/21/16 at 06:00 Polyethylene Glycol (Miralax) 17 gm DAILY GTB Last administered on 10/31/16 09 :08; Admin Dose 17 GM; Start 10/20/16 at 13:30 Zinc Sulfate (Zinc Sulfate) 220 mg DAILY GTB Last administered on 10/31/16 09: 08; Admin Dose 220 MG; Start 10/21/16 at 09:00 Multivit/Ca Carb/ B Cmplx/FA/Prenat ([place]) 1 tab DAILY GTB Last administered on 10/31/16 09:09; Admin Dose 1 TAB; Start 10/21/16 at 09:00 Acetaminophen/ Hydrocodone Bitart ([place] (5/325)) 1 tab Q6 PRN GTB PAIN LEVEL 1 -5 Last administered on 10/31/16 06:21; Admin Dose 1 TAB; Start 10/20/16 at 14: 00 Gabapentin (Neurontin Liquid) 100 mg TID GTB Last administered on 10/31/16 12: 36; Admin Dose 100 MG; Start 10/20/16 at 21:00 Risperidone (Risperdal) 1 mg QHS GTB Last administered on 10/30/16 21:04; Admin Dose 1 MG; Start 10/20/16 at 21:00 Ferrous Sulfate (Feosol Liquid Cup) 300 mg DAILY GTB Last administered on 09:08; Admin Dose 300 MG; Start 10/20/16 at 14:07 Miscellaneous Information (Pending [facility] Order For Wound Care) This patient noriega... PRN PRN XX WOUND CARE; Start 10/20/16 at 20:00 Zolpidem Tartrate (Ambien) 5 mg HS PRN PO INSOMNIA Last administered on 21:13; Admin Dose 5 MG; Start 10/20/16 at 21:00 Mupirocin 1 applic 1 applic BID TOP Last administered on 10/31/16 09:14; Admin Dose 1 APPLIC; Start 10/22/16 at 21:00 Vancomycin HCl (Vancocin) 250 ml @ 125 mls/hr Q48H IVPB Last administered on 23:04; Admin Dose 125 MLS/HR; Start 10/30/16 at 22:00 Permethrin (Elimite 5% Cr) 1 applic ONCE ONCE TOP ; Start 10/31/16 at 21:00; Stop 10/31/16 at 21:01 TIARA CISNEROS MD Oct 31, 2016 18:46
[2016-10-31] MEDS: ACETAMINOPHEN 650MG/20.3ML CUP GTB PRN (20:14)
[2016-10-31] MEDS: DOCUSATE SODIUM 10 MG/ML (10ML CUP) GTB SCH (20:15)
[2016-10-31] MEDS: RISPERIDONE 1 MG TAB GTB SCH (20:15)
[2016-10-31] MEDS: ZOLPIDEM 5 MG TAB PO PRN (20:33)
[2016-10-31] MEDS: ALBUTEROL 18 GM INHALER INH PRN (20:57)
[2016-11-01] VITALS (24 sets, daily range): BP systolic 108–136; BP diastolic 70–89; PULSE 82–95; RESP 18–30
[2016-11-01] MEDS: IPRATROPIUM (HFA) 12.9 GM INHALER INH SCH ×4 (01:40→19:09)
[2016-11-01] MEDS: LEVALBUTEROL (HFA) 15 GM INHALER INH SCH ×4 (01:41→19:09)
[2016-11-01] MEDS: HYDROmorphONE 1 MG/ML SYG IV PRN ×4 (04:15→20:10)
[2016-11-01] MEDS: LANSOPRAZOLE 30 MG CAP GTB SCH (04:16)
[2016-11-01 06:05] LABS: BASOPHILS % 0.2 % (0.0-2.0); EOSINOPHILS # 0.2 10^3/ul (0.0-0.5); EOSINOPHILS % 3.6 % (0.0-7.0); HEMATOCRIT 29.4 % (42.0-52.0); HEMOGLOBIN 8.7 g/dl (14.0-18.0); LYMPHOCYTES # 0.7 10^3/ul (0.8-2.9); LYMPHOCYTES % 15.7 % (15.0-51.0); MEAN CORPUSCULAR HEMOGLOBIN 29.5 pg (29.0-33.0); MEAN CORPUSCULAR HGB CONC 29.6 g/dl (32.0-37.0); MEAN CORPUSCULAR VOLUME 99.7 fl (82.0-101.0); MEAN PLATELET VOLUME 11.4 fl (7.4-10.4); MONOCYTE # 0.6 10^3/ul (0.3-0.9); MONOCYTES % 13.6 % (0.0-11.0); NEUTROPHIL # 3.1 10^3/ul (1.6-7.5); NEUTROPHILS % 66.5 % (39.0-77.0); PLATELET COUNT 148 10^3/UL (140-415); RED BLOOD COUNT 2.95 10^6/ul (4.70-6.10); RED CELL DISTRIBUTION WIDTH 14.3 % (11.5-14.5); WHITE BLOOD COUNT 4.7 10^3/ul (4.8-10.8)
[2016-11-01] MEDS: ACETAMINOPHEN 650MG/20.3ML CUP GTB PRN (06:29)
[2016-11-01] MEDS: HYDROCODONE/APAP (5/325) TAB GTB PRN ×2 (06:51→12:43)
[2016-11-01 07:06] LABS: CALCIUM 8.7 mg/dl (8.4-10.2); CREATININE 1.6 mg/dl (0.61-1.24)
[2016-11-01 07:21] LABS: POTASSIUM 5.9 mmol/L (3.5-5.1)
[2016-11-01] MEDS ORDERED: NA POLYST SULFON 15 GM/60 ML BTL ONE (08:06)
[2016-11-01] MEDS: GABAPENTIN (50 MG/ML PO SYG) GTB SCH ×3 (08:13→20:10)
[2016-11-01] MEDS: POLYETHYLENE GLYCOL 17 GM PACKET GTB SCH ×2 (08:13→20:24)
[2016-11-01] MEDS: FERROUS SULFATE 60 MG/ML 5ML CUP GTB SCH (08:13)
[2016-11-01] MEDS: CITRIC ACID/NA CIT (1 MEQ/ML POSYG) GTB SCH ×3 (08:13→20:10)
[2016-11-01] MEDS: ZINC SULFATE 220 MG CAP GTB SCH (08:14)
[2016-11-01] MEDS: MULTIVIT/CA CARB/B CMPLX/FA TAB GTB SCH (08:14)
[2016-11-01] MEDS: ASCORBIC ACID 500 MG TAB GTB SCH (08:14)
[2016-11-01] MEDS: MUPIROCIN 2% 22 GM OINT TOP SCH ×2 (08:15→20:25)
[2016-11-01] MEDS ORDERED: NA POLYST SULFON 15 GM/60 ML BTL PO ONE ×2 (08:30→09:30)
[2016-11-01] MEDS ORDERED: FOSFOMYCIN 3 GM PACKET PO ONE (10:30)
[2016-11-01] MEDS: ZYVOX 600 MG TAB PO SCH ×2 (11:38→20:10)
--- NOTE | 2016-11-01 13:10 | PN ---
Date/Time of Note Date/Time of Note DATE: 11/01/16 TIME: 13:07 Assessment/Plan VTE Prophylaxis VTE Prophylaxis Intervention: SCD's Lines/Catheters [facility] PICC Line Central line still needed: Yes Urinary Cath still in place: Yes Reason Cath still needed: urinary retention Assessment/Plan Chief Complaint/Hosp Course Patient with persistent hyperkalemia, refused Kayexalate yesterday, given Kayaxelate togay according to methods time analyst/Plan - Hyperkalemia, s/p Kayexalate. Monitor BMP. - VRE in urine, started on Zyvox. - Possible scabies, continue on Elimite - Sepsis due to HCAP, urinary tract infection, resolving. Dr. Maciel is following in infection disease consultation. Continue antibiotics per ID. - Neurogenic bladder with suprapubic catheter. - Left renal nephrolithiasis, Dr Marquez is following in urology consultation. S /p lithotripsy and movable of a left ureteral JJ stent by Dr. Marquez 10/29. - Acute kidney injury on chronic kidney disease. Continue to monitor renal function. - Status post right nephrectomy - Ventilator-dependent respiratory failure with tracheostomy. - Dysphagia with percutaneous endoscopic gastrostomy tube. - Multiple decubitus ulcers present on admission. - Cervical spine injury with paraplegia. - Bipolar disorder with psychosis. Further recommendations based on clinical course. Plan of care discussed with Dr. Barreto. Problems: Exam/Review of Systems Vital Signs Vitals Vital Signs Date Time Temp Pulse Resp B/P Pulse Ox O2 Delivery O2 Flow Rate FiO2 11/01/16 12:02 98.5 77 20 111/75 99 11/01/16 09:10 40 10/29/16 13:15 Mechanical Ventilator Intake and Output 10/31/16 10/31/16 11/01/16 15:00 23:00 07:00 Intake Total 960 ml 500 ml Output Total 1700 ml 2250 ml Balance -740 ml -1750 ml Exam Constitutional: alert Neck: other (Urostomy), supple Respiratory: diminished breath sounds Cardiovascular: nl pulses, regular rate and rhythm Gastrointestinal: non-tender, other (G-tube), soft Extremities: normal pulses Skin: other (multiple decubitus ulcers) Results Result Diagram: 11/01/16 0541 11/01/16 0541 Results 24 hrs Laboratory Tests Test 11/01/16 05:41 White Blood Count 4.7 #L Red Blood Count 2.95 L Hemoglobin 8.7 L Hematocrit 29.4 L Mean Corpuscular Volume 99.7 Mean Corpuscular Hemoglobin 29.5 Mean Corpuscular Hemoglobin Concent 29.6 L Red Cell Distribution Width 14.3 Platelet Count 148 Mean Platelet Volume 11.4 H Neutrophils % 66.5 Lymphocytes % 15.7 Monocytes % 13.6 H Eosinophils % 3.6 Basophils % 0.2 Nucleated Red Blood Cells % 0.0 Neutrophils # 3.1 Lymphocytes # 0.7 L Monocytes # 0.6 Eosinophils # 0.2 Basophils # 0.0 Nucleated Red Blood Cells # 0.0 Sodium Level 138 Potassium Level 5.9 H Chloride Level 111 H Carbon Dioxide Level 23 Anion Gap 10 Blood Urea Nitrogen 43 H Creatinine 1.60 H Glucose Level 85 Calcium Level 8.7 Medications Medications Current Medications Dextrose (D50w Syringe) ONCE PRN IV POC BLOOD GLUCOSE <250 MG/DL; Start at 06:00 Hydromorphone HCl (Dilaudid) 1 mg Q4H PRN IV PAIN Last administered on 08:16; Admin Dose 1 MG; Start 10/20/16 at 10:00 Acetaminophen (Tylenol Liquid) 650 mg Q4H PRN GTB MILD PAIN LEVEL 1-3 Last administered on 11/01/16 06:29; Admin Dose 650 MG; Start 10/20/16 at 13:30 Ascorbic Acid (Vitamin C) 500 mg DAILY GTB Last administered on 11/01/16 08:14 ; Admin Dose 500 MG; Start 10/20/16 at 14:00 Bisacodyl (Dulcolax Supp) 10 mg Q24H PRN [place] CONSTIPATION; Start 10/20/16 at 13: 30 Citric Acid/ Sodium Citrate (Bicitra Liquid (Ped)) 10 meq TID GTB Last administered on 11/01/16 12:35; Admin Dose 10 MEQ; Start 10/20/16 at 21:00 Docusate Sodium (Colace Liquid Cup) 200 mg QHS GTB Last administered on 20:15; Admin Dose 200 MG; Start 10/20/16 at 21:00 Enoxaparin Sodium (Lovenox) 30 mg DAILY SC ; Start 10/21/16 at 09:00; Status Future Hold Magnesium Hydroxide (Milk Of Mag) 30 ml DAILY PRN GTB CONSTIPATION; Start 10/20 at 13:30 Lansoprazole (Prevacid) 30 mg DAILY@06 GTB Last administered on 11/01/16 04:16 ; Admin Dose 30 MG; Start 10/21/16 at 06:00 Polyethylene Glycol (Miralax) 17 gm DAILY GTB Last administered on 11/01/16 08 :13; Admin Dose 17 GM; Start 10/20/16 at 13:30 Zinc Sulfate (Zinc Sulfate) 220 mg DAILY GTB Last administered on 11/01/16 08: 14; Admin Dose 220 MG; Start 10/21/16 at 09:00 Multivit/Ca Carb/ B Cmplx/FA/Prenat (Lilibeth-Linn) 1 tab DAILY GTB Last administered on 11/01/16 08:14; Admin Dose 1 TAB; Start 10/21/16 at 09:00 Acetaminophen/ Hydrocodone Bitart ([place] (5/325)) 1 tab Q6 PRN GTB PAIN LEVEL 1 -5 Last administered on 11/01/16 12:43; Admin Dose 1 TAB; Start 10/20/16 at 14: 00 Gabapentin (Neurontin Liquid) 100 mg TID GTB Last administered on 11/01/16 12: 35; Admin Dose 100 MG; Start 10/20/16 at 21:00 Risperidone (Risperdal) 1 mg QHS GTB Last administered on 10/31/16 20:15; Admin Dose 1 MG; Start 10/20/16 at 21:00 Ferrous Sulfate (Feosol Liquid Cup) 300 mg DAILY GTB Last administered on 08:13; Admin Dose 300 MG; Start 10/20/16 at 14:07 Miscellaneous Information (Pending Santyl Order For Wound Care) This patient noriega... PRN PRN XX WOUND CARE; Start 10/20/16 at 20:00 Zolpidem Tartrate (Ambien) 5 mg HS PRN PO INSOMNIA Last administered on 20:33; Admin Dose 5 MG; Start 10/20/16 at 21:00 Mupirocin (Bactroban) 1 applic BID TOP Last administered on 11/01/16 08:15; Admin Dose 1 APPLIC; Start 10/22/16 at 21:00 Collagenase (Santyl) 1 applic DAILY TOP ; Start 11/02/16 at 09:00 Linezolid (Zyvox) 600 mg BID PO Last administered on 11/01/16 11:38; Admin Dose 600 MG; Start 11/01/16 at 10:30 AISSATOU DUNCAN Nov 01, 2016 13:10
--- NOTE | 2016-11-01 16:20 | CONS ---
Date/Time of Note Date/Time of Note DATE: 11/01/16 TIME: 16:19 Assessment/Plan Assessment/Plan Additional Assessment/Plan Sepsis/SIRS Hypotension, improved Sinus tachycardia, improved Acute kidney injury, improved Respiratory Failure Preserved EF on echocardiogram March 02, 2016 History of intermittent [place] I Chronic pain syndrome Hyperkalemia -Heart rate trend overall stable. Continue to hold any antihypertensive medications. Antibiotics as per primary team. Patient undergoing treatment for hyperkalemia Consultation Date/Type/Reason Admit Date/Time Oct 21, 2016 at 15:46 Initial Consult Date 10/20/16 Type of Consultation: cv Referring Provider: JOSÉ ANTONIO MIRZA MD 24 HR Interval Summary Free Text/Dictation Denies palpitations, chest pain or shortness of breath Exam/Review of Systems Vital Signs Vitals Vital Signs Date Time Temp Pulse Resp B/P Pulse Ox O2 Delivery O2 Flow Rate FiO2 11/01/16 15:05 89 26 97 40 11/01/16 12:02 98.5 111/75 10/29/16 13:15 Mechanical Ventilator Intake and Output 10/31/16 10/31/16 11/01/16 15:00 23:00 07:00 Intake Total 960 ml 500 ml Output Total 1700 ml 2250 ml Balance -740 ml -1750 ml Exam No apparent distress Constitutional: alert, oriented Head: normocephalic Respiratory: other (Coarse breath sounds bilaterally, no wheezing) Cardiovascular: other (S1-S2 heard), regular rate and rhythm Gastrointestinal: bowel sounds, non-tender, soft Extremities: other (No significant edema) Results Result Diagram: 11/01/16 0541 11/01/16 0541 Results 24 hrs Laboratory Tests Test 11/01/16 05:41 White Blood Count 4.7 #L Red Blood Count 2.95 L Hemoglobin 8.7 L Hematocrit 29.4 L Mean Corpuscular Volume 99.7 Mean Corpuscular Hemoglobin 29.5 Mean Corpuscular Hemoglobin Concent 29.6 L Red Cell Distribution Width 14.3 Platelet Count 148 Mean Platelet Volume 11.4 H Neutrophils % 66.5 Lymphocytes % 15.7 Monocytes % 13.6 H Eosinophils % 3.6 Basophils % 0.2 Nucleated Red Blood Cells % 0.0 Neutrophils # 3.1 Lymphocytes # 0.7 L Monocytes # 0.6 Eosinophils # 0.2 Basophils # 0.0 Nucleated Red Blood Cells # 0.0 Sodium Level 138 Potassium Level 5.9 H Chloride Level 111 H Carbon Dioxide Level 23 Anion Gap 10 Blood Urea Nitrogen 43 H Creatinine 1.60 H Glucose Level 85 Calcium Level 8.7 Medications Medications Current Medications Dextrose (D50w Syringe) ONCE PRN IV POC BLOOD GLUCOSE <250 MG/DL; Start at 06:00 Hydromorphone HCl (Dilaudid) 1 mg Q4H PRN IV PAIN Last administered on 15:32; Admin Dose 1 MG; Start 10/20/16 at 10:00 Acetaminophen (Tylenol Liquid) 650 mg Q4H PRN GTB MILD PAIN LEVEL 1-3 Last administered on 11/01/16 06:29; Admin Dose 650 MG; Start 10/20/16 at 13:30 Ascorbic Acid (Vitamin C) 500 mg DAILY GTB Last administered on 11/01/16 08:14 ; Admin Dose 500 MG; Start 10/20/16 at 14:00 Bisacodyl (Dulcolax Supp) 10 mg Q24H PRN [place] CONSTIPATION; Start 10/20/16 at 13: 30 Citric Acid/ Sodium Citrate (Bicitra Liquid (Ped)) 10 meq TID GTB Last administered on 11/01/16 12:35; Admin Dose 10 MEQ; Start 10/20/16 at 21:00 Docusate Sodium (Colace Liquid Cup) 200 mg QHS GTB Last administered on 20:15; Admin Dose 200 MG; Start 10/20/16 at 21:00 Enoxaparin Sodium (Lovenox) 30 mg DAILY SC ; Start 10/21/16 at 09:00; Status Future Hold Magnesium Hydroxide (Milk Of Mag) 30 ml DAILY PRN GTB CONSTIPATION; Start 10/20 at 13:30 Lansoprazole (Prevacid) 30 mg DAILY@06 GTB Last administered on 11/01/16 04:16 ; Admin Dose 30 MG; Start 10/21/16 at 06:00 Polyethylene Glycol (Miralax) 17 gm DAILY GTB Last administered on 11/01/16 08 :13; Admin Dose 17 GM; Start 10/20/16 at 13:30 Zinc Sulfate (Zinc Sulfate) 220 mg DAILY GTB Last administered on 11/01/16 08: 14; Admin Dose 220 MG; Start 10/21/16 at 09:00 Multivit/Ca Carb/ B Cmplx/FA/Prenat ([place]-L[place]) 1 tab DAILY GTB Last administered on 11/01/16 08:14; Admin Dose 1 TAB; Start 10/21/16 at 09:00 Acetaminophen/ Hydrocodone Bitart ([place] (5/325)) 1 tab Q6 PRN GTB PAIN LEVEL 1 -5 Last administered on 11/01/16 12:43; Admin Dose 1 TAB; Start 10/20/16 at 14: 00 Gabapentin (Neurontin Liquid) 100 mg TID GTB Last administered on 11/01/16 12: 35; Admin Dose 100 MG; Start 10/20/16 at 21:00 Risperidone (Risperdal) 1 mg QHS GTB Last administered on 10/31/16 20:15; Admin Dose 1 MG; Start 10/20/16 at 21:00 Ferrous Sulfate (Feosol Liquid Cup) 300 mg DAILY GTB Last administered on 08:13; Admin Dose 300 MG; Start 10/20/16 at 14:07 Miscellaneous Information (Pending Santyl Order For Wound Care) This patient noriega... PRN PRN XX WOUND CARE; Start 10/20/16 at 20:00 Zolpidem Tartrate (Ambien) 5 mg HS PRN PO INSOMNIA Last administered on 20:33; Admin Dose 5 MG; Start 10/20/16 at 21:00 Mupirocin (Bactroban) 1 applic BID TOP Last administered on 11/01/16 08:15; Admin Dose 1 APPLIC; Start 10/22/16 at 21:00 Collagenase (Santyl) 1 applic DAILY TOP ; Start 11/02/16 at 09:00 Linezolid (Zyvox) 600 mg BID PO Last administered on 11/01/16 11:38; Admin Dose 600 MG; Start 11/01/16 at 10:30 Deandre Chavez DO Nov 01, 2016 16:20
--- NOTE | 2016-11-01 17:25 | CONS ---
Date/Time of Note Date/Time of Note DATE: 11/01/16 TIME: 17:23 Assessment/Plan Assessment/Plan Additional Assessment/Plan 1. Acute kidney injury secondary to severe prerenal azotemia and possible acute tubular necrosis. 2. Acute uremia with a BUN of 46, Cr 1.42 on admission 3. Acute hyperkalemia- resolved 5. 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 6. History of neurogenic bladder with urinary retention, status post suprapubic catheter. 7. History of previous recurrent urinary tract infections. 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 9. 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 10. Other medical history includes anxiety, depression, bipolar disorder, psychosis. 11. History of right nephrectomy with left renal nephrolithiasis and a left renal cyst measuring 5.3 cm in size. 12. Hyperkalemia Plan: - K 5.5- will give kayexalate 15 gram pO x2 today if pt agrees - yesterday he refused it. - IV abx as per ID, renally dose all abx and Monitor electrolytes. - will follow up Consultation Date/Type/Reason Admit Date/Time Oct 21, 2016 at 15:46 Initial Consult Date 10/20/16 Type of Consultation: NEPHROLOGY Referring Provider: JOSÉ ANTONIO MIRZA MD 24 HR Interval Summary Free Text/Dictation K 5.8- yesterday pt refused kayexalate, BP stable IV abx changed today by ID Exam/Review of Systems Vital Signs Vitals Vital Signs Date Time Temp Pulse Resp B/P Pulse Ox O2 Delivery O2 Flow Rate FiO2 11/01/16 16:23 97.8 77 20 136/89 98 11/01/16 15:05 40 10/29/16 13:15 Mechanical Ventilator Intake and Output 10/31/16 10/31/16 11/01/16 15:00 23:00 07:00 Intake Total 960 ml 500 ml Output Total 1700 ml 2250 ml Balance -740 ml -1750 ml Exam Constitutional: alert ENMT: nl external ears & nose, other (+ tracheostomy on ventilator ) Respiratory: clear to auscultation, crackles/rales Cardiovascular: nl pulses, regular rate and rhythm Gastrointestinal: non-tender, other (+ G tube placement ), soft Musculoskeletal: quadruplegic Results Result Diagram: 9/26/17 0541 11/01/16 0541 Results 24 hrs Laboratory Tests Test 11/01/16 05:41 White Blood Count 4.7 #L Red Blood Count 2.95 L Hemoglobin 8.7 L Hematocrit 29.4 L Mean Corpuscular Volume 99.7 Mean Corpuscular Hemoglobin 29.5 Mean Corpuscular Hemoglobin Concent 29.6 L Red Cell Distribution Width 14.3 Platelet Count 148 Mean Platelet Volume 11.4 H Neutrophils % 66.5 Lymphocytes % 15.7 Monocytes % 13.6 H Eosinophils % 3.6 Basophils % 0.2 Nucleated Red Blood Cells % 0.0 Neutrophils # 3.1 Lymphocytes # 0.7 L Monocytes # 0.6 Eosinophils # 0.2 Basophils # 0.0 Nucleated Red Blood Cells # 0.0 Sodium Level 138 Potassium Level 5.9 H Chloride Level 111 H Carbon Dioxide Level 23 Anion Gap 10 Blood Urea Nitrogen 43 H Creatinine 1.60 H Glucose Level 85 Calcium Level 8.7 Medications Medications Current Medications Dextrose (D50w Syringe) ONCE PRN IV POC BLOOD GLUCOSE <250 MG/DL; Start at 06:00 Hydromorphone HCl (Dilaudid) 1 mg Q4H PRN IV PAIN Last administered on 15:32; Admin Dose 1 MG; Start 10/20/16 at 10:00 Acetaminophen (Tylenol Liquid) 650 mg Q4H PRN GTB MILD PAIN LEVEL 1-3 Last administered on 11/01/16 06:29; Admin Dose 650 MG; Start 10/20/16 at 13:30 Ascorbic Acid (Vitamin C) 500 mg DAILY GTB Last administered on 11/01/16 08:14 ; Admin Dose 500 MG; Start 10/20/16 at 14:00 Bisacodyl (Dulcolax Supp) 10 mg Q24H PRN [place] CONSTIPATION; Start 10/20/16 at 13: 30 Citric Acid/ Sodium Citrate (Bicitra Liquid (Ped)) 10 meq TID GTB Last administered on 11/01/16 12:35; Admin Dose 10 MEQ; Start 10/20/16 at 21:00 Docusate Sodium (Colace Liquid Cup) 200 mg QHS GTB Last administered on 20:15; Admin Dose 200 MG; Start 10/20/16 at 21:00 Enoxaparin Sodium (Lovenox) 30 mg DAILY SC ; Start 10/21/16 at 09:00; Status Future Hold Magnesium Hydroxide (Milk Of Mag) 30 ml DAILY PRN GTB CONSTIPATION; Start 10/20 at 13:30 Lansoprazole (Prevacid) 30 mg DAILY@06 GTB Last administered on 11/01/16 04:16 ; Admin Dose 30 MG; Start 10/21/16 at 06:00 Polyethylene Glycol (Miralax) 17 gm DAILY GTB Last administered on 11/01/16 08 :13; Admin Dose 17 GM; Start 10/20/16 at 13:30 Zinc Sulfate (Zinc Sulfate) 220 mg DAILY GTB Last administered on 11/01/16 08: 14; Admin Dose 220 MG; Start 10/21/16 at 09:00 Multivit/Ca Carb/ B Cmplx/FA/Prenat ([place]) 1 tab DAILY GTB Last administered on 11/01/16 08:14; Admin Dose 1 TAB; Start 10/21/16 at 09:00 Acetaminophen/ Hydrocodone Bitart ([place] (5/325)) 1 tab Q6 PRN GTB PAIN LEVEL 1 -5 Last administered on 11/01/16 12:43; Admin Dose 1 TAB; Start 10/20/16 at 14: 00 Gabapentin (Neurontin Liquid) 100 mg TID GTB Last administered on 11/01/16 12: 35; Admin Dose 100 MG; Start 10/20/16 at 21:00 Risperidone (Risperdal) 1 mg QHS GTB Last administered on 10/31/16 20:15; Admin Dose 1 MG; Start 10/20/16 at 21:00 Ferrous Sulfate (Feosol Liquid Cup) 300 mg DAILY GTB Last administered on 08:13; Admin Dose 300 MG; Start 10/20/16 at 14:07 Miscellaneous Information (Pending [facility] Order For Wound Care) This patient noriega... PRN PRN XX WOUND CARE; Start 10/20/16 at 20:00 Zolpidem Tartrate (Ambien) 5 mg HS PRN PO INSOMNIA Last administered on 20:33; Admin Dose 5 MG; Start 10/20/16 at 21:00 Mupirocin (Bactroban) 1 applic BID TOP Last administered on 11/01/16 08:15; Admin Dose 1 APPLIC; Start 10/22/16 at 21:00 Collagenase (Santyl) 1 applic DAILY TOP ; Start 11/02/16 at 09:00 Linezolid (Zyvox) 600 mg BID PO Last administered on 11/01/16 11:38; Admin Dose 600 MG; Start 11/01/16 at 10:30 TIARA CISNEROS MD Nov 01, 2016 17:25
--- NOTE | 2016-11-01 17:44 | PN ---
DATE: 11/01/2016 SUBJECTIVE DATA: The patient is resting comfortably. He is on ventilator support. He is fully awake, alert, able to talk. His vital signs are stable. OBJECTIVE DATA: He has had no fever spikes. Temperature 98.7, blood pressure 130/87, pulse rate is 92, respirations 20, pulse oximetry 94 percent saturation on ventilator support. Tracheal secretions are clear. No bleeding is seen. HEART: Regular rhythm. CHEST: Breath sounds are clear bilaterally, but diminished in the lower lung [place]. ABDOMEN: Soft, not distended. He is able to eat orally. No vomiting. Normal bowel sounds. EXTREMITIES: Show paraplegia, no edema. LABORATORY AND DIAGNOSTIC DATA: WBC 4700, hemoglobin 8.7, hematocrit 29.4, platelets within normal limits, 148,000. The chemistry panel shows a glucose of 85, sodium 138, potassium 5.9, bicarbonate of 23, BUN is 43, creatinine is 1.6. Urine culture shown growth of vancomycin resistant enterococcus. This is being treated with Zyvox and . IMPRESSION: 1. Chronic respiratory failure. 2. Sepsis, resolving. 3. Urinary infection with vancomycin resistant enterococcus. 4. Chronic kidney disease. 5. Nephrolithiasis status post lithotripsy. 6. Chronic anemia. 7. Chronic bilateral pleural effusions. 8. 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 PLAN: 1. Continue ventilator support. 2. Continue antibiotics as prescribed by the infectious disease home sales consultant. 3. Continue pulmonary toilet with bronchodilator inhalation therapy. 4. Continue oral feedings as tolerated. Dictated By: Palmer Ames MD /sera/maida /Document#: [id number]
--- NOTE | 2016-11-01 19:12 | PN ---
Date/Time of Note Date/Time of Note DATE: 11/01/16 TIME: 19:07 Assessment/Plan VTE Prophylaxis VTE Prophylaxis Intervention: other Lines/Catheters IV [facility] PICC Line Central line still needed: Yes Urinary Cath still in place: Yes Reason Cath still needed: urinary retention Assessment/Plan Chief Complaint/Hosp Course This is a 40-year-old male who was admitted to the hospital from a nursing facility because of hypoxemia. 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 Patient has a tracheostomy and also has a suprapubic tube. Patient has had a right nephrectomy. He underwent extracorporeal shockwave lithotripsy and cystoscopy through the suprapubic tract and through the urethra and the JJ stent was removed. There was no ureteral obstruction that required to insert a new JJ stent. The old JJ stent was very dark and almost rotten urine culture taken from the left kidney did grow VRE. The patient was started on Zyvox Problems: Subjective 24 Hr Interval Summary Constitutional: other (Patient states he feels something around the right flank area, however he does have right nephrectomy so there is no kidney disease on that side) Eyes: no complaints ENT: other (Respirator) Respiratory: no complaints Cardiovascular: No chest pain Gastrointestinal: no complaints Genitourinary: other (Suprapubic tube) Exam/Review of Systems Vital Signs Vitals Vital Signs Date Time Temp Pulse Resp B/P Pulse Ox O2 Delivery O2 Flow Rate FiO2 11/01/16 17:15 77 22 99 40 11/01/16 16:23 97.8 136/89 10/29/16 13:15 Mechanical Ventilator Intake and Output 10/31/16 10/31/16 11/01/16 15:00 23:00 07:00 Intake Total 960 ml 500 ml Output Total 1700 ml 2250 ml Balance -740 ml -1750 ml Exam Constitutional: alert Psych: no complaints Head: normocephalic Eyes: nl conjunctiva Respiratory: other (Respirator) Gastrointestinal: soft Genitourinary - Male: other (Suprapubic tube draining clear urine, the urine culture from the left kidney did grow VRE) Extremities: other (Contractures of lower extremities) Results Result Diagram: 11/01/16 0541 11/01/16 0541 Results 24 hrs Laboratory Tests Test 11/01/16 05:41 White Blood Count 4.7 #L Red Blood Count 2.95 L Hemoglobin 8.7 L Hematocrit 29.4 L Mean Corpuscular Volume 99.7 Mean Corpuscular Hemoglobin 29.5 Mean Corpuscular Hemoglobin Concent 29.6 L Red Cell Distribution Width 14.3 Platelet Count 148 Mean Platelet Volume 11.4 H Neutrophils % 66.5 Lymphocytes % 15.7 Monocytes % 13.6 H Eosinophils % 3.6 Basophils % 0.2 Nucleated Red Blood Cells % 0.0 Neutrophils # 3.1 Lymphocytes # 0.7 L Monocytes # 0.6 Eosinophils # 0.2 Basophils # 0.0 Nucleated Red Blood Cells # 0.0 Sodium Level 138 Potassium Level 5.9 H Chloride Level 111 H Carbon Dioxide Level 23 Anion Gap 10 Blood Urea Nitrogen 43 H Creatinine 1.60 H Glucose Level 85 Calcium Level 8.7 Medications Medications Current Medications Dextrose (D50w Syringe) ONCE PRN IV POC BLOOD GLUCOSE <250 MG/DL; Start at 06:00 Hydromorphone HCl (Dilaudid) 1 mg Q4H PRN IV PAIN Last administered on 15:32; Admin Dose 1 MG; Start 10/20/16 at 10:00 Acetaminophen (Tylenol Liquid) 650 mg Q4H PRN GTB MILD PAIN LEVEL 1-3 Last administered on 11/01/16 06:29; Admin Dose 650 MG; Start 10/20/16 at 13:30 Ascorbic Acid (Vitamin C) 500 mg DAILY GTB Last administered on 11/01/16 08:14 ; Admin Dose 500 MG; Start 10/20/16 at 14:00 Bisacodyl (Dulcolax Supp) 10 mg Q24H PRN [place] CONSTIPATION; Start 10/20/16 at 13: 30 Citric Acid/ Sodium Citrate (Bicitra Liquid (Ped)) 10 meq TID GTB Last administered on 11/01/16 12:35; Admin Dose 10 MEQ; Start 10/20/16 at 21:00 Docusate Sodium (Colace Liquid Cup) 200 mg QHS GTB Last administered on 20:15; Admin Dose 200 MG; Start 10/20/16 at 21:00 Enoxaparin Sodium (Lovenox) 30 mg DAILY SC ; Start 10/21/16 at 09:00; Status Future Hold Magnesium Hydroxide (Milk Of Mag) 30 ml DAILY PRN GTB CONSTIPATION; Start 10/20 at 13:30 Lansoprazole (Prevacid) 30 mg DAILY@06 GTB Last administered on 11/01/16 04:16 ; Admin Dose 30 MG; Start 10/21/16 at 06:00 Polyethylene Glycol (Miralax) 17 gm DAILY GTB Last administered on 11/01/16 08 :13; Admin Dose 17 GM; Start 10/20/16 at 13:30 Zinc Sulfate (Zinc Sulfate) 220 mg DAILY GTB Last administered on 11/01/16 08: 14; Admin Dose 220 MG; Start 10/21/16 at 09:00 Multivit/Ca Carb/ B Cmplx/FA/Prenat ([place]) 1 tab DAILY GTB Last administered on 11/01/16 08:14; Admin Dose 1 TAB; Start 10/21/16 at 09:00 Acetaminophen/ Hydrocodone Bitart ([place] (5/325)) 1 tab Q6 PRN GTB PAIN LEVEL 1 -5 Last administered on 11/01/16 12:43; Admin Dose 1 TAB; Start 10/20/16 at 14: 00 Gabapentin (Neurontin Liquid) 100 mg TID GTB Last administered on 11/01/16 12: 35; Admin Dose 100 MG; Start 10/20/16 at 21:00 Risperidone (Risperdal) 1 mg QHS GTB Last administered on 10/31/16 20:15; Admin Dose 1 MG; Start 10/20/16 at 21:00 Ferrous Sulfate (Feosol Liquid Cup) 300 mg DAILY GTB Last administered on 08:13; Admin Dose 300 MG; Start 10/20/16 at 14:07 Miscellaneous Information (Pending Santyl Order For Wound Care) This patient noriega... PRN PRN XX WOUND CARE; Start 10/20/16 at 20:00 Zolpidem Tartrate (Ambien) 5 mg HS PRN PO INSOMNIA Last administered on 20:33; Admin Dose 5 MG; Start 10/20/16 at 21:00 Mupirocin (Bactroban) 1 applic BID TOP Last administered on 11/01/16 08:15; Admin Dose 1 APPLIC; Start 10/22/16 at 21:00 Collagenase (Santyl) 1 applic DAILY TOP ; Start 11/02/16 at 09:00 Linezolid (Zyvox) 600 mg BID PO Last administered on 11/01/16t 11:38; Admin Dose 600 MG; Start 11/01/16 at 10:30 BHARGAV JIANG MD Nov 01, 2016 19:12
[2016-11-01] MEDS: RISPERIDONE 1 MG TAB GTB SCH (20:10)
[2016-11-01] MEDS: DOCUSATE SODIUM 10 MG/ML (10ML CUP) GTB SCH (20:24)
[2016-11-01] MEDS: ZOLPIDEM 5 MG TAB PO PRN (20:39)
--- NOTE | 2016-11-01 21:54 | CONS ---
Date/Time of Note Date/Time of Note DATE: 11/01/16 TIME: 21:51 Assessment/Plan Assessment/Plan Chief Complaint/Hosp Course SUBJECTIVE DATA: No acute changes overnight. The patient is alert, looks comfortable. Denies pain. No fevers. MICROBIOLOGY: Urine culture growing VRE INDWELLINGS: Trach, PEG, suprapubic catheter. ANTIMICROBIALS: Zyvox, s/p Fosfomycin dose PHYSICAL EXAMINATION: GENERAL: Well developed, chronically ill-appearing, middle-aged, quadriplegic man, who is in no distress. HEENT: Head atraumatic, normocephalic. Sclerae anicteric. Buccal mucosa dry. NECK: Supple. Tracheostomy present. CHEST: Chest rise symmetrical. Breath sounds diminished to bases. HEART: S1, S2. ABDOMEN: Soft, bowel sounds present. EXTREMITIES: Without cyanosis, wasted. ASSESSMENT: 1. Status post septic shock/PNA. 2. VRE UTI. 3. Scabies, status post Elimite and ivermectin dose. 4. History of right nephrectomy. 5. Status post shockwave lithotripsy with removal of old stent. 6. Multiple chronic wounds. PLAN: The patient remains stable. Antibiotics were adjusted per urine cx, continue present care, pulmonary/urology rec-s [facility] staff Problems: Consultation Date/Type/Reason Admit Date/Time Oct 21, 2016 at 15:46 Initial Consult Date 10/20/16 Type of Consultation: ID Referring Provider: JOSÉ ANTONIO MIRZA MD Exam/Review of Systems Vital Signs Vitals Vital Signs Date Time Temp Pulse Resp B/P Pulse Ox O2 Delivery O2 Flow Rate FiO2 11/01/16 19:10 96 23 98 40 11/01/16 16:23 97.8 136/89 10/29/16 13:15 Mechanical Ventilator Intake and Output 10/31/16 10/31/16 11/01/16 15:00 23:00 07:00 Intake Total 960 ml 500 ml Output Total 1700 ml 2250 ml Balance -740 ml -1750 ml Results Result Diagram: 11/01/16 0541 11/01/16 0541 Results 24 hrs Laboratory Tests Test 11/01/16 05:41 White Blood Count 4.7 #L Red Blood Count 2.95 L Hemoglobin 8.7 L Hematocrit 29.4 L Mean Corpuscular Volume 99.7 Mean Corpuscular Hemoglobin 29.5 Mean Corpuscular Hemoglobin Concent 29.6 L Red Cell Distribution Width 14.3 Platelet Count 148 Mean Platelet Volume 11.4 H Neutrophils % 66.5 Lymphocytes % 15.7 Monocytes % 13.6 H Eosinophils % 3.6 Basophils % 0.2 Nucleated Red Blood Cells % 0.0 Neutrophils # 3.1 Lymphocytes # 0.7 L Monocytes # 0.6 Eosinophils # 0.2 Basophils # 0.0 Nucleated Red Blood Cells # 0.0 Sodium Level 138 Potassium Level 5.9 H Chloride Level 111 H Carbon Dioxide Level 23 Anion Gap 10 Blood Urea Nitrogen 43 H Creatinine 1.60 H Glucose Level 85 Calcium Level 8.7 Medications Medications Current Medications Dextrose (D50w Syringe) ONCE PRN IV POC BLOOD GLUCOSE <250 MG/DL; Start at 06:00 Hydromorphone HCl (Dilaudid) 1 mg Q4H PRN IV PAIN Last administered on 20:10; Admin Dose 1 MG; Start 10/20/16 at 10:00 Acetaminophen (Tylenol Liquid) 650 mg Q4H PRN GTB MILD PAIN LEVEL 1-3 Last administered on 11/01/16 06:29; Admin Dose 650 MG; Start 10/20/16 at 13:30 Ascorbic Acid (Vitamin C) 500 mg DAILY GTB Last administered on 11/01/16 08:14 ; Admin Dose 500 MG; Start 10/20/16 at 14:00 Bisacodyl (Dulcolax Supp) 10 mg Q24H PRN [place] CONSTIPATION; Start 10/20/16 at 13: 30 Citric Acid/ Sodium Citrate (Bicitra Liquid (Ped)) 10 meq TID GTB Last administered on 11/01/16 20:10; Admin Dose 10 MEQ; Start 10/20/16 at 21:00 Docusate Sodium (Colace Liquid Cup) 200 mg QHS GTB Last administered on 20:24; Admin Dose 200 MG; Start 10/20/16 at 21:00 Enoxaparin Sodium (Lovenox) 30 mg DAILY SC ; Start 10/21/16 at 09:00; Status Future Hold Magnesium Hydroxide (Milk Of Mag) 30 ml DAILY PRN GTB CONSTIPATION; Start 10/20 at 13:30 Lansoprazole (Prevacid) 30 mg DAILY@06 GTB Last administered on 11/01/16 04:16 ; Admin Dose 30 MG; Start 10/21/16 at 06:00 Polyethylene Glycol (Miralax) 17 gm DAILY GTB Last administered on 11/01/16 20 :24; Admin Dose 17 GM; Start 10/20/16 at 13:30 Zinc Sulfate (Zinc Sulfate) 220 mg DAILY GTB Last administered on 11/01/16 08: 14; Admin Dose 220 MG; Start 10/21/16 at 09:00 Multivit/Ca Carb/ B Cmplx/FA/Prenat ([place]) 1 tab DAILY GTB Last administered on 11/01/16 08:14; Admin Dose 1 TAB; Start 10/21/16 at 09:00 Acetaminophen/ Hydrocodone Bitart ([place] (5/325)) 1 tab Q6 PRN GTB PAIN LEVEL 1 -5 Last administered on 11/01/16 12:43; Admin Dose 1 TAB; Start 10/20/16 at 14: 00 Gabapentin (Neurontin Liquid) 100 mg TID GTB Last administered on 11/01/16 20: 10; Admin Dose 100 MG; Start 10/20/16 at 21:00 Risperidone (Risperdal) 1 mg QHS GTB Last administered on 11/01/16 20:10; Admin Dose 1 MG; Start 10/20/16 at 21:00 Ferrous Sulfate (Feosol Liquid Cup) 300 mg DAILY GTB Last administered on 08:13; Admin Dose 300 MG; Start 10/20/16 at 14:07 Miscellaneous Information (Pending Santyl Order For Wound Care) This patient noriega... PRN PRN XX WOUND CARE; Start 10/20/16 at 20:00 Zolpidem Tartrate (Ambien) 5 mg HS PRN PO INSOMNIA Last administered on 20:39; Admin Dose 5 MG; Start 10/20/16 at 21:00 Mupirocin (Bactroban) 1 applic BID TOP Last administered on 11/01/16 20:25; Admin Dose 1 APPLIC; Start 10/22/16 at 21:00 Collagenase (Santyl) 1 applic DAILY TOP ; Start 11/02/16 at 09:00 Linezolid (Zyvox) 600 mg BID PO Last administered on 11/01/16t 20:10; Admin Dose 600 MG; Start 11/01/16 at 10:30 Influenza Virus Vaccine (Fluzone) 0.5 ml ONCE ONCE IM* ; Start 11/02/16 at 11:00 ; Stop 11/02/16 at 11:01 REGINALDO CHERY NP Nov 01, 2016 21:54
[2016-11-02] VITALS (24 sets, daily range): BP systolic 100–119; BP diastolic 58–82; PULSE 71–95; RESP 16–31
[2016-11-02] MEDS: HYDROmorphONE 1 MG/ML SYG IV PRN ×6 (00:04→21:19)
[2016-11-02] MEDS: LEVALBUTEROL (HFA) 15 GM INHALER INH SCH ×4 (01:38→19:50)
[2016-11-02] MEDS: IPRATROPIUM (HFA) 12.9 GM INHALER INH SCH ×4 (01:38→19:50)
[2016-11-02] MEDS: LANSOPRAZOLE 30 MG CAP GTB SCH (05:16)
[2016-11-02 06:21] LABS: BASOPHILS % 0.4 % (0.0-2.0); EOSINOPHILS # 0.2 10^3/ul (0.0-0.5); HEMATOCRIT 28.2 % (42.0-52.0); HEMOGLOBIN 8.8 g/dl (14.0-18.0); LYMPHOCYTES # 0.7 10^3/ul (0.8-2.9); LYMPHOCYTES % 14.4 % (15.0-51.0); MEAN CORPUSCULAR HEMOGLOBIN 30.9 pg (29.0-33.0); MEAN CORPUSCULAR HGB CONC 31.2 g/dl (32.0-37.0); MEAN CORPUSCULAR VOLUME 98.9 fl (82.0-101.0); MEAN PLATELET VOLUME 11.4 fl (7.4-10.4); MONOCYTE # 0.5 10^3/ul (0.3-0.9); MONOCYTES % 10.6 % (0.0-11.0); NEUTROPHIL # 3.4 10^3/ul (1.6-7.5); NEUTROPHILS % 70.2 % (39.0-77.0); PLATELET COUNT 133 10^3/UL (140-415); RED BLOOD COUNT 2.85 10^6/ul (4.70-6.10); RED CELL DISTRIBUTION WIDTH 13.9 % (11.5-14.5); WHITE BLOOD COUNT 4.8 10^3/ul (4.8-10.8)
[2016-11-02 06:52] LABS: CALCIUM 8.4 mg/dl (8.4-10.2); CREATININE 1.61 mg/dl (0.61-1.24); POTASSIUM 5.3 mmol/L (3.5-5.1)
[2016-11-02] MEDS: ZYVOX 600 MG TAB PO SCH ×2 (07:48→21:22)
[2016-11-02] MEDS: COLLAGENASE 30 GM TUBE TOP SCH (07:48)
[2016-11-02] MEDS: CITRIC ACID/NA CIT (1 MEQ/ML POSYG) GTB SCH ×2 (07:48→12:41)
[2016-11-02] MEDS: MULTIVIT/CA CARB/B CMPLX/FA TAB GTB SCH (07:48)
[2016-11-02] MEDS: ZINC SULFATE 220 MG CAP GTB SCH (07:48)
[2016-11-02] MEDS: ASCORBIC ACID 500 MG TAB GTB SCH (07:48)
[2016-11-02] MEDS: MUPIROCIN 2% 22 GM OINT TOP SCH ×2 (07:49→21:22)
[2016-11-02] MEDS: HYDROCODONE/APAP (5/325) TAB GTB PRN (07:49)
[2016-11-02] MEDS: POLYETHYLENE GLYCOL 17 GM PACKET GTB SCH (07:55)
[2016-11-02] MEDS: FERROUS SULFATE 60 MG/ML 5ML CUP GTB SCH (08:12)
--- NOTE | 2016-11-02 10:31 | PN ---
DATE: 11/02/2016 SUBJECTIVE DATA: The patient's condition is the same. He is breathing comfortably with ventilator support. OBJECTIVE DATA: RESPIRATORY: His vital signs are stable. Temperature 98.2, blood pressure 110/69, pulse rate of 86, respirations 18. Pulse oximetry 97 percent saturation, with 40 percent oxygen concentration. Tracheal secretions are clear. No bleeding is seen. HEART: Regular rhythm. CHEST: Breath sounds are diminished in both lower lung [place], otherwise clear. ABDOMEN: Abdomen is soft. Tolerating gastrostomy tube feedings. Now with bowel sounds. EXTREMITIES: Show no edema. He is paraplegic. LABORATORY DATA: The lab tests from today shows a BUN 40, creatinine 1.6, sodium 141, potassium 5.3, bicarb 24. The CBC shows a WBC of 4800, hemoglobin 8.8, hematocrit 28.2, platelets decreased to 133,000. IMPRESSION: 1. Chronic respiratory failure. 2. Sepsis, resolving. 3. Urinary infection with vancomycin-resistant enterococcus. 4. Chronic kidney disease. 5. Nephrolithiasis, status post-lithotripsy. 6. Chronic anemia. 7. Chronic bilateral pleural effusions. 8. Paraplegia, secondary to spinal cord injury in the past. PLAN: 1. Continue ventilator support. 2. Continue antibiotics as per infectious disease surgery consultant. 3. Continue pulmonary toilet with bronchodilator inhalation therapy. 4. Continue oral feedings as tolerated. Dictated By: Palmer Ames MD /sera/shane /Document#: [id number]
[2016-11-02] MEDS: GABAPENTIN (50 MG/ML PO SYG) GTB SCH ×2 (10:57→12:41)
[2016-11-02] MEDS ORDERED: INFLUENZA VIRUS VACCINE 0.5 ML SYG IM* ONE (11:00)
--- NOTE | 2016-11-02 12:50 | CONS ---
Date/Time of Note Date/Time of Note DATE: 11/02/16 TIME: 12:49 Assessment/Plan Assessment/Plan Additional Assessment/Plan Sepsis/SIRS Hypotension, improved Sinus tachycardia, improved Acute kidney injury, improved Respiratory Failure Preserved EF on echocardiogram March 02, 2016 History of intermittent [place] I Chronic pain syndrome Hyperkalemia -Heart rate trend overall stable. Continue to hold any antihypertensive medications. Antibiotics as per primary team. Consultation Date/Type/Reason Admit Date/Time Oct 21, 2016 at 15:46 Initial Consult Date 10/20/16 Type of Consultation: cv Referring Provider: JOSÉ ANTONIO MIRZA MD 24 HR Interval Summary Free Text/Dictation Denies palpitations, shortness of breath Exam/Review of Systems Vital Signs Vitals Vital Signs Date Time Temp Pulse Resp B/P Pulse Ox O2 Delivery O2 Flow Rate FiO2 11/02/16 12:35 87 11/02/16 11:35 97.8 20 100/58 97 11/02/16 10:54 50 10/29/16 13:15 Mechanical Ventilator Intake and Output 11/01/16 11/01/16 11/02/16 15:00 23:00 07:00 Intake Total 1500 ml 750 ml Output Total 1700 ml 2800 ml Balance -200 ml -2050 ml Exam No apparent distress Constitutional: alert, frail, oriented Head: normocephalic Neck: other (Tracheostomy) Respiratory: other (Coarse breath sounds bilaterally, no wheezing) Cardiovascular: other (S1-S2), regular rate and rhythm Gastrointestinal: bowel sounds, non-tender, soft Extremities: other (No significant edema) Results Result Diagram: 11/02/16 0555 11/02/16 0555 Results 24 hrs Laboratory Tests Test 11/02/16 05:55 White Blood Count 4.8 Red Blood Count 2.85 L Hemoglobin 8.8 L Hematocrit 28.2 L Mean Corpuscular Volume 98.9 Mean Corpuscular Hemoglobin 30.9 Mean Corpuscular Hemoglobin Concent 31.2 L Red Cell Distribution Width 13.9 Platelet Count 133 L Mean Platelet Volume 11.4 H Neutrophils % 70.2 Lymphocytes % 14.4 L Monocytes % 10.6 Eosinophils % 4.0 Basophils % 0.4 Nucleated Red Blood Cells % 0.0 Neutrophils # 3.4 Lymphocytes # 0.7 L Monocytes # 0.5 Eosinophils # 0.2 Basophils # 0.0 Nucleated Red Blood Cells # 0.0 Sodium Level 141 Potassium Level 5.3 H Chloride Level 111 H Carbon Dioxide Level 24 Anion Gap 11 Blood Urea Nitrogen 40 H Creatinine 1.61 H Glucose Level 76 Calcium Level 8.4 Medications Medications Current Medications Dextrose (D50w Syringe) ONCE PRN IV POC BLOOD GLUCOSE <250 MG/DL; Start at 06:00 Hydromorphone HCl (Dilaudid) 1 mg Q4H PRN IV PAIN Last administered on 09:10; Admin Dose 1 MG; Start 10/20/16 at 10:00 Acetaminophen (Tylenol Liquid) 650 mg Q4H PRN GTB MILD PAIN LEVEL 1-3 Last administered on 11/01/16 06:29; Admin Dose 650 MG; Start 10/20/16 at 13:30 Ascorbic Acid (Vitamin C) 500 mg DAILY GTB Last administered on 11/02/16 07:48 ; Admin Dose 500 MG; Start 10/20/16 at 14:00 Bisacodyl (Dulcolax Supp) 10 mg Q24H PRN [place] CONSTIPATION; Start 10/20/16 at 13: 30 Citric Acid/ Sodium Citrate (Bicitra Liquid (Ped)) 10 meq TID GTB Last administered on 11/02/16 12:41; Admin Dose 10 MEQ; Start 10/20/16 at 21:00 Docusate Sodium (Colace Liquid Cup) 200 mg QHS GTB Last administered on 20:24; Admin Dose 200 MG; Start 10/20/16 at 21:00 Enoxaparin Sodium (Lovenox) 30 mg DAILY SC ; Start 10/21/16 at 09:00; Status Future Hold Magnesium Hydroxide (Milk Of Mag) 30 ml DAILY PRN GTB CONSTIPATION; Start 10/20 at 13:30 Lansoprazole (Prevacid) 30 mg DAILY@06 GTB Last administered on 11/02/16 05:16 ; Admin Dose 30 MG; Start 10/21/16 at 06:00 Polyethylene Glycol (Miralax) 17 gm DAILY GTB Last administered on 11/01/16 20 :24; Admin Dose 17 GM; Start 10/20/16 at 13:30 Zinc Sulfate (Zinc Sulfate) 220 mg DAILY GTB Last administered on 11/02/16 07: 48; Admin Dose 220 MG; Start 10/21/16 at 09:00 Multivit/Ca Carb/ B Cmplx/FA/Prenat ([place]-L[place]) 1 tab DAILY GTB Last administered on 11/02/16 07:48; Admin Dose 1 TAB; Start 10/21/16 at 09:00 Acetaminophen/ Hydrocodone Bitart ([place] (5/325)) 1 tab Q6 PRN GTB PAIN LEVEL 1 -5 Last administered on 11/02/16 07:49; Admin Dose 1 TAB; Start 10/20/16 at 14: 00 Gabapentin (Neurontin Liquid) 100 mg TID GTB Last administered on 11/02/16 12: 41; Admin Dose 100 MG; Start 10/20/16 at 21:00 Risperidone (Risperdal) 1 mg QHS GTB Last administered on 11/01/16 20:10; Admin Dose 1 MG; Start 10/20/16 at 21:00 Ferrous Sulfate (Feosol Liquid Cup) 300 mg DAILY GTB Last administered on 08:12; Admin Dose 300 MG; Start 10/20/16 at 14:07 Miscellaneous Information (Pending Santyl Order For Wound Care) This patient noriega... PRN PRN XX WOUND CARE; Start 10/20/16 at 20:00 Zolpidem Tartrate (Ambien) 5 mg HS PRN PO INSOMNIA Last administered on 20:39; Admin Dose 5 MG; Start 10/20/16 at 21:00 Mupirocin (Bactroban) 1 applic BID TOP Last administered on 11/02/16 07:49; Admin Dose 1 APPLIC; Start 10/22/16 at 21:00 Collagenase (Santyl) 1 applic DAILY TOP Last administered on 11/02/16 07:48; Admin Dose 1 APPLIC; Start 11/02/16 at 09:00 Linezolid (Zyvox) 600 mg BID PO Last administered on 11/02/16 07:48; Admin Dose 600 MG; Start 11/01/16 at 10:30 Deandre Chavez DO Nov 02, 2016 12:50
--- NOTE | 2016-11-02 13:28 | CONS ---
Date/Time of Note Date/Time of Note DATE: 11/02/16 TIME: 13:27 Assessment/Plan Assessment/Plan Chief Complaint/Hosp Course SUBJECTIVE DATA: No acute changes overnight. The patient is alert, looks comfortable. Denies pain. No fevers. MICROBIOLOGY: Urine culture growing VRE INDWELLINGS: Trach, PEG, suprapubic catheter. ANTIMICROBIALS: Zyvox #2, s/p Fosfomycin dose PHYSICAL EXAMINATION: GENERAL: Well developed, chronically ill-appearing, middle-aged, quadriplegic man, who is in no distress. HEENT: Head atraumatic, normocephalic. Sclerae anicteric. Buccal mucosa dry. NECK: Supple. Tracheostomy present. CHEST: Chest rise symmetrical. Breath sounds diminished to bases. HEART: S1, S2. ABDOMEN: Soft, bowel sounds present. EXTREMITIES: Without cyanosis, wasted. ASSESSMENT: 1. Status post septic shock/PNA. 2. VRE UTI. 3. Scabies, status post Elimite and ivermectin. 4. History of right nephrectomy. 5. Status post shockwave lithotripsy with removal of old stent. 6. Multiple chronic wounds. PLAN: The patient remains stable. Antibiotics were adjusted per urine cx, continue present care, pulmonary/urology rec-s [facility] staff Problems: Consultation Date/Type/Reason Admit Date/Time Oct 21, 2016 at 15:46 Initial Consult Date 10/20/16 Type of Consultation: id Referring Provider: JOSÉ ANTONIO MIRZA MD Exam/Review of Systems Vital Signs Vitals Vital Signs Date Time Temp Pulse Resp B/P Pulse Ox O2 Delivery O2 Flow Rate FiO2 11/02/16 13:17 84 31 92 50 11/02/16 11:35 97.8 100/58 10/29/16 13:15 Mechanical Ventilator Intake and Output 11/01/16 11/01/16 11/02/16 15:00 23:00 07:00 Intake Total 1500 ml 750 ml Output Total 1700 ml 2800 ml Balance -200 ml -2050 ml Results Result Diagram: 11/02/16 0555 11/02/16 0555 Results 24 hrs Laboratory Tests Test 11/02/16 05:55 White Blood Count 4.8 Red Blood Count 2.85 L Hemoglobin 8.8 L Hematocrit 28.2 L Mean Corpuscular Volume 98.9 Mean Corpuscular Hemoglobin 30.9 Mean Corpuscular Hemoglobin Concent 31.2 L Red Cell Distribution Width 13.9 Platelet Count 133 L Mean Platelet Volume 11.4 H Neutrophils % 70.2 Lymphocytes % 14.4 L Monocytes % 10.6 Eosinophils % 4.0 Basophils % 0.4 Nucleated Red Blood Cells % 0.0 Neutrophils # 3.4 Lymphocytes # 0.7 L Monocytes # 0.5 Eosinophils # 0.2 Basophils # 0.0 Nucleated Red Blood Cells # 0.0 Sodium Level 141 Potassium Level 5.3 H Chloride Level 111 H Carbon Dioxide Level 24 Anion Gap 11 Blood Urea Nitrogen 40 H Creatinine 1.61 H Glucose Level 76 Calcium Level 8.4 Medications Medications Current Medications Dextrose (D50w Syringe) ONCE PRN IV POC BLOOD GLUCOSE <250 MG/DL; Start at 06:00 Hydromorphone HCl (Dilaudid) 1 mg Q4H PRN IV PAIN Last administered on 13:09; Admin Dose 1 MG; Start 10/20/16 at 10:00 Acetaminophen (Tylenol Liquid) 650 mg Q4H PRN GTB MILD PAIN LEVEL 1-3 Last administered on 11/01/16 06:29; Admin Dose 650 MG; Start 10/20/16 at 13:30 Ascorbic Acid (Vitamin C) 500 mg DAILY GTB Last administered on 11/02/16 07:48 ; Admin Dose 500 MG; Start 10/20/16 at 14:00 Bisacodyl (Dulcolax Supp) 10 mg Q24H PRN [place] CONSTIPATION; Start 10/20/16 at 13: 30 Citric Acid/ Sodium Citrate (Bicitra Liquid (Ped)) 10 meq TID GTB Last administered on 11/02/16 12:41; Admin Dose 10 MEQ; Start 10/20/16 at 21:00 Docusate Sodium (Colace Liquid Cup) 200 mg QHS GTB Last administered on 20:24; Admin Dose 200 MG; Start 10/20/16 at 21:00 Enoxaparin Sodium (Lovenox) 30 mg DAILY SC ; Start 10/21/16 at 09:00; Status Future Hold Magnesium Hydroxide (Milk Of Mag) 30 ml DAILY PRN GTB CONSTIPATION; Start 10/20 at 13:30 Lansoprazole (Prevacid) 30 mg DAILY@06 GTB Last administered on 11/02/16 05:16 ; Admin Dose 30 MG; Start 10/21/16 at 06:00 Polyethylene Glycol (Miralax) 17 gm DAILY GTB Last administered on 11/01/16 20 :24; Admin Dose 17 GM; Start 10/20/16 at 13:30 Zinc Sulfate (Zinc Sulfate) 220 mg DAILY GTB Last administered on 11/02/16 07: 48; Admin Dose 220 MG; Start 10/21/16 at 09:00 Multivit/Ca Carb/ B Cmplx/FA/Prenat ([place]) 1 tab DAILY GTB Last administered on 11/02/16 07:48; Admin Dose 1 TAB; Start 10/21/16 at 09:00 Acetaminophen/ Hydrocodone Bitart ([place] (5/325)) 1 tab Q6 PRN GTB PAIN LEVEL 1 -5 Last administered on 11/02/16 07:49; Admin Dose 1 TAB; Start 10/20/16 at 14: 00 Gabapentin (Neurontin Liquid) 100 mg TID GTB Last administered on 11/02/16 12: 41; Admin Dose 100 MG; Start 10/20/16 at 21:00 Risperidone (Risperdal) 1 mg QHS GTB Last administered on 11/01/16 20:10; Admin Dose 1 MG; Start 10/20/16 at 21:00 Ferrous Sulfate (Feosol Liquid Cup) 300 mg DAILY GTB Last administered on 08:12; Admin Dose 300 MG; Start 10/20/16 at 14:07 Miscellaneous Information (Pending Santyl Order For Wound Care) This patient noriega... PRN PRN XX WOUND CARE; Start 10/20/16 at 20:00 Zolpidem Tartrate (Ambien) 5 mg HS PRN PO INSOMNIA Last administered on 20:39; Admin Dose 5 MG; Start 10/20/16 at 21:00 Mupirocin (Bactroban) 1 applic BID TOP Last administered on 11/02/16 07:49; Admin Dose 1 APPLIC; Start 10/22/16 at 21:00 Collagenase (Santyl) 1 applic DAILY TOP Last administered on 11/02/16 07:48; Admin Dose 1 APPLIC; Start 11/02/16 at 09:00 Linezolid (Zyvox) 600 mg BID PO Last administered on 11/02/16t 07:48; Admin Dose 600 MG; Start 11/01/16 at 10:30 REGINALDO CHERY NP Nov 02, 2016 13:28
--- NOTE | 2016-11-02 16:38 | PN ---
Date/Time of Note Date/Time of Note DATE: 11/02/16 TIME: 16:36 Assessment/Plan VTE Prophylaxis VTE Prophylaxis Intervention: SCD's Lines/Catheters [facility]from [facility] PICC Line Central line still needed: Yes Urinary Cath still in place: Yes Reason Cath still needed: urinary retention Assessment/Plan Chief Complaint/Hosp Course Patient with persistent hyperkalemia, slightly improved s/p Kayexalate yesterday, will give Kayexale today. Assessment/Plan - Hyperkalemia, give Kayexalate. Monitor BMP. - VRE in urine, started on Zyvox. - Possible scabies, continue on Elimite - Sepsis due to HCAP, urinary tract infection, resolving. Dr. Maciel is following in infection disease consultation. Continue antibiotics per ID. - Neurogenic bladder with suprapubic catheter. - Left renal nephrolithiasis, Dr Marquez is following in urology consultation. S /p lithotripsy and movable of a left ureteral JJ stent by Dr. Marquez 10/29. - Acute kidney injury on chronic kidney disease. Continue to monitor renal function. - Status post right nephrectomy - Ventilator-dependent respiratory failure with tracheostomy. - Dysphagia with percutaneous endoscopic gastrostomy tube. - Multiple decubitus ulcers present on admission. - Cervical spine injury with paraplegia. - Bipolar disorder with psychosis. Further recommendations based on clinical course. Plan of care discussed with Dr. Barreto. Problems: Exam/Review of Systems Vital Signs Vitals Vital Signs Date Time Temp Pulse Resp B/P Pulse Ox O2 Delivery O2 Flow Rate FiO2 11/02/16 15:09 78 25 96 50 11/02/16 11:35 97.8 100/58 10/29/16 13:15 Mechanical Ventilator Intake and Output 11/01/16 11/01/16 11/02/16 15:00 23:00 07:00 Intake Total 1500 ml 750 ml Output Total 1700 ml 2800 ml Balance -200 ml -2050 ml Exam Constitutional: alert Neck: other (Urostomy), supple Respiratory: diminished breath sounds Cardiovascular: nl pulses, regular rate and rhythm Gastrointestinal: non-tender, other (G-tube), soft Extremities: normal pulses Skin: other (multiple decubitus ulcers) Results Result Diagram: 11/02/16 0555 11/02/16 0555 Results 24 hrs Laboratory Tests Test 11/02/16 05:55 White Blood Count 4.8 Red Blood Count 2.85 L Hemoglobin 8.8 L Hematocrit 28.2 L Mean Corpuscular Volume 98.9 Mean Corpuscular Hemoglobin 30.9 Mean Corpuscular Hemoglobin Concent 31.2 L Red Cell Distribution Width 13.9 Platelet Count 133 L Mean Platelet Volume 11.4 H Neutrophils % 70.2 Lymphocytes % 14.4 L Monocytes % 10.6 Eosinophils % 4.0 Basophils % 0.4 Nucleated Red Blood Cells % 0.0 Neutrophils # 3.4 Lymphocytes # 0.7 L Monocytes # 0.5 Eosinophils # 0.2 Basophils # 0.0 Nucleated Red Blood Cells # 0.0 Sodium Level 141 Potassium Level 5.3 H Chloride Level 111 H Carbon Dioxide Level 24 Anion Gap 11 Blood Urea Nitrogen 40 H Creatinine 1.61 H Glucose Level 76 Calcium Level 8.4 Medications Medications Current Medications Dextrose (D50w Syringe) ONCE PRN IV POC BLOOD GLUCOSE <250 MG/DL; Start at 06:00 Hydromorphone HCl (Dilaudid) 1 mg Q4H PRN IV PAIN Last administered on 13:09; Admin Dose 1 MG; Start 10/20/16 at 10:00 Acetaminophen (Tylenol Liquid) 650 mg Q4H PRN GTB MILD PAIN LEVEL 1-3 Last administered on 11/01/16 06:29; Admin Dose 650 MG; Start 10/20/16 at 13:30 Ascorbic Acid (Vitamin C) 500 mg DAILY GTB Last administered on 11/02/16 07:48 ; Admin Dose 500 MG; Start 10/20/16 at 14:00 Bisacodyl (Dulcolax Supp) 10 mg Q24H PRN [place] CONSTIPATION; Start 10/20/16 at 13: 30 Citric Acid/ Sodium Citrate (Bicitra Liquid (Ped)) 10 meq TID GTB Last administered on 11/02/16 12:41; Admin Dose 10 MEQ; Start 10/20/16 at 21:00 Docusate Sodium (Colace Liquid Cup) 200 mg QHS GTB Last administered on 20:24; Admin Dose 200 MG; Start 10/20/16 at 21:00 Enoxaparin Sodium (Lovenox) 30 mg DAILY SC ; Start 10/21/16 at 09:00; Status Future Hold Magnesium Hydroxide (Milk Of Mag) 30 ml DAILY PRN GTB CONSTIPATION; Start 10/20 at 13:30 Lansoprazole (Prevacid) 30 mg DAILY@06 GTB Last administered on 11/02/16 05:16 ; Admin Dose 30 MG; Start 10/21/16 at 06:00 Polyethylene Glycol (Miralax) 17 gm DAILY GTB Last administered on 11/01/16 20 :24; Admin Dose 17 GM; Start 10/20/16 at 13:30 Zinc Sulfate (Zinc Sulfate) 220 mg DAILY GTB Last administered on 11/02/16 07: 48; Admin Dose 220 MG; Start 10/21/16 at 09:00 Multivit/Ca Carb/ B Cmplx/FA/Prenat (Lilibeth-Linn) 1 tab DAILY GTB Last administered on 11/02/16 07:48; Admin Dose 1 TAB; Start 10/21/16 at 09:00 Acetaminophen/ Hydrocodone Bitart ([place] (5/325)) 1 tab Q6 PRN GTB PAIN LEVEL 1 -5 Last administered on 11/02/16 07:49; Admin Dose 1 TAB; Start 10/20/16 at 14: 00 Gabapentin (Neurontin Liquid) 100 mg TID GTB Last administered on 11/02/16 12: 41; Admin Dose 100 MG; Start 10/20/16 at 21:00 Risperidone (Risperdal) 1 mg QHS GTB Last administered on 11/01/16 20:10; Admin Dose 1 MG; Start 10/20/16 at 21:00 Ferrous Sulfate (Feosol Liquid Cup) 300 mg DAILY GTB Last administered on 08:12; Admin Dose 300 MG; Start 10/20/16 at 14:07 Miscellaneous Information (Pending [facility] Order For Wound Care) This patient noriega... PRN PRN XX WOUND CARE; Start 10/20/16 at 20:00 Zolpidem Tartrate (Ambien) 5 mg HS PRN PO INSOMNIA Last administered on 20:39; Admin Dose 5 MG; Start 10/20/16 at 21:00 Mupirocin (Bactroban) 1 applic BID TOP Last administered on 11/02/16 07:49; Admin Dose 1 APPLIC; Start 10/22/16 at 21:00 Collagenase (Santyl) 1 applic DAILY TOP Last administered on 11/02/16 07:48; Admin Dose 1 APPLIC; Start 11/02/16 at 09:00 Linezolid (Zyvox) 600 mg BID PO Last administered on 11/02/16 07:48; Admin Dose 600 MG; Start 11/01/16 at 10:30 AISSATOU DUNCAN Nov 02, 2016 16:38
[2016-11-02] MEDS ORDERED: NA POLYST SULFON 15 GM/60 ML BTL PO ONE (17:00)
[2016-11-02] MEDS: ALBUTEROL 18 GM INHALER INH PRN (19:42)
--- NOTE | 2016-11-02 19:49 | CONS ---
Date/Time of Note Date/Time of Note DATE: 11/02/16 TIME: 19:48 Assessment/Plan Assessment/Plan Additional Assessment/Plan 1. Acute kidney injury secondary to severe prerenal azotemia and possible acute tubular necrosis. 2. Acute uremia with a BUN of 46, Cr 1.42 on admission 3. Acute hyperkalemia- resolved 5. 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 6. History of neurogenic bladder with urinary retention, status post suprapubic catheter. 7. History of previous recurrent urinary tract infections. 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 9. 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 10. Other medical history includes anxiety, depression, bipolar disorder, psychosis. 11. History of right nephrectomy with left renal nephrolithiasis and a left renal cyst measuring 5.3 cm in size. 12. Hyperkalemia Plan: - K 5.3 today- will monitor it - IV abx as per ID, renally dose all abx and Monitor electrolytes. - will follow up Consultation Date/Type/Reason Admit Date/Time Oct 21, 2016 at 15:46 Initial Consult Date 10/20/16 Type of Consultation: NEPHROLOGY Referring Provider: JOSÉ ANTONIO MIRZA MD 24 HR Interval Summary Free Text/Dictation Cr 1.6, K 5.3, BP stable Exam/Review of Systems Vital Signs Vitals Vital Signs Date Time Temp Pulse Resp B/P Pulse Ox O2 Delivery O2 Flow Rate FiO2 11/02/16 19:42 89 26 100 50 11/02/16 16:51 98.1 118/76 10/29/16 13:15 Mechanical Ventilator Intake and Output 11/01/16 11/01/16 11/02/16 15:00 23:00 07:00 Intake Total 1500 ml 750 ml Output Total 1700 ml 2800 ml Balance -200 ml -2050 ml Exam Constitutional: alert ENMT: nl external ears & nose, other (+ tracheostomy on ventilator ) Respiratory: clear to auscultation, crackles/rales Cardiovascular: nl pulses, regular rate and rhythm Gastrointestinal: non-tender, other (+ G tube placement ), soft Musculoskeletal: quadruplegic Results Result Diagram: 11/02/16 0555 11/02/16 0555 Results 24 hrs Laboratory Tests Test 11/02/16 05:55 White Blood Count 4.8 Red Blood Count 2.85 L Hemoglobin 8.8 L Hematocrit 28.2 L Mean Corpuscular Volume 98.9 Mean Corpuscular Hemoglobin 30.9 Mean Corpuscular Hemoglobin Concent 31.2 L Red Cell Distribution Width 13.9 Platelet Count 133 L Mean Platelet Volume 11.4 H Neutrophils % 70.2 Lymphocytes % 14.4 L Monocytes % 10.6 Eosinophils % 4.0 Basophils % 0.4 Nucleated Red Blood Cells % 0.0 Neutrophils # 3.4 Lymphocytes # 0.7 L Monocytes # 0.5 Eosinophils # 0.2 Basophils # 0.0 Nucleated Red Blood Cells # 0.0 Sodium Level 141 Potassium Level 5.3 H Chloride Level 111 H Carbon Dioxide Level 24 Anion Gap 11 Blood Urea Nitrogen 40 H Creatinine 1.61 H Glucose Level 76 Calcium Level 8.4 Medications Medications Current Medications Dextrose (D50w Syringe) ONCE PRN IV POC BLOOD GLUCOSE <250 MG/DL; Start at 06:00 Hydromorphone HCl (Dilaudid) 1 mg Q4H PRN IV PAIN Last administered on 17:15; Admin Dose 1 MG; Start 10/20/16 at 10:00 Acetaminophen (Tylenol Liquid) 650 mg Q4H PRN GTB MILD PAIN LEVEL 1-3 Last administered on 11/01/16 06:29; Admin Dose 650 MG; Start 10/20/16 at 13:30 Ascorbic Acid (Vitamin C) 500 mg DAILY GTB Last administered on 11/02/16 07:48 ; Admin Dose 500 MG; Start 10/20/16 at 14:00 Bisacodyl (Dulcolax Supp) 10 mg Q24H PRN [place] CONSTIPATION; Start 10/20/16 at 13: 30 Citric Acid/ Sodium Citrate (Bicitra Liquid (Ped)) 10 meq TID GTB Last administered on 11/02/16 12:41; Admin Dose 10 MEQ; Start 10/20/16 at 21:00 Docusate Sodium (Colace Liquid Cup) 200 mg QHS GTB Last administered on 20:24; Admin Dose 200 MG; Start 10/20/16 at 21:00 Enoxaparin Sodium (Lovenox) 30 mg DAILY SC ; Start 10/21/16 at 09:00; Status Future Hold Magnesium Hydroxide (Milk Of Mag) 30 ml DAILY PRN GTB CONSTIPATION; Start 10/20 at 13:30 Lansoprazole (Prevacid) 30 mg DAILY@06 GTB Last administered on 11/02/16 05:16 ; Admin Dose 30 MG; Start 10/21/16 at 06:00 Polyethylene Glycol (Miralax) 17 gm DAILY GTB Last administered on 11/01/16 20 :24; Admin Dose 17 GM; Start 10/20/16 at 13:30 Zinc Sulfate (Zinc Sulfate) 220 mg DAILY GTB Last administered on 11/02/16 07: 48; Admin Dose 220 MG; Start 10/21/16 at 09:00 Multivit/Ca Carb/ B Cmplx/FA/Prenat ([place]-Linn) 1 tab DAILY GTB Last administered on 11/02/16 07:48; Admin Dose 1 TAB; Start 10/21/16 at 09:00 Acetaminophen/ Hydrocodone Bitart ([place] (5/325)) 1 tab Q6 PRN GTB PAIN LEVEL 1 -5 Last administered on 11/02/16 07:49; Admin Dose 1 TAB; Start 10/20/16 at 14: 00 Gabapentin (Neurontin Liquid) 100 mg TID GTB Last administered on 11/02/16 12: 41; Admin Dose 100 MG; Start 10/20/16 at 21:00 Risperidone (Risperdal) 1 mg QHS GTB Last administered on 11/01/16 20:10; Admin Dose 1 MG; Start 10/20/16 at 21:00 Ferrous Sulfate (Feosol Liquid Cup) 300 mg DAILY GTB Last administered on 08:12; Admin Dose 300 MG; Start 10/20/16 at 14:07 Miscellaneous Information (Pending Santyl Order For Wound Care) This patient noriega... PRN PRN XX WOUND CARE; Start 10/20/16 at 20:00 Zolpidem Tartrate (Ambien) 5 mg HS PRN PO INSOMNIA Last administered on 20:39; Admin Dose 5 MG; Start 10/20/16 at 21:00 Mupirocin (Bactroban) 1 applic BID TOP Last administered on 11/02/16 07:49; Admin Dose 1 APPLIC; Start 10/22/16 at 21:00 Collagenase (Santyl) 1 applic DAILY TOP Last administered on 11/02/16 07:48; Admin Dose 1 APPLIC; Start 11/02/16 at 09:00 Linezolid (Zyvox) 600 mg BID PO Last administered on 11/02/16 07:48; Admin Dose 600 MG; Start 11/01/16 at 10:30 TIARA CISNEROS MD Nov 02, 2016 19:49
[2016-11-02] MEDS: ZOLPIDEM 5 MG TAB PO PRN (22:06)
[2016-11-03] VITALS (21 sets, daily range): BP systolic 95–114; BP diastolic 52–79; PULSE 80–103; RESP 15–29
[2016-11-03] MEDS: HYDROCODONE/APAP (5/325) TAB GTB PRN ×2 (00:45→15:48)
[2016-11-03] MEDS: LEVALBUTEROL (HFA) 15 GM INHALER INH SCH ×4 (01:11→19:51)
[2016-11-03] MEDS: IPRATROPIUM (HFA) 12.9 GM INHALER INH SCH ×4 (01:12→19:51)
[2016-11-03] MEDS: HYDROmorphONE 1 MG/ML SYG IV PRN ×6 (01:29→21:54)
[2016-11-03] MEDS: LANSOPRAZOLE 30 MG CAP PO SCH (06:11)
[2016-11-03 06:18] LABS: BASOPHILS % 0.2 % (0.0-2.0); EOSINOPHILS # 0.1 10^3/ul (0.0-0.5); EOSINOPHILS % 1.8 % (0.0-7.0); HEMATOCRIT 27.9 % (42.0-52.0); HEMOGLOBIN 8.5 g/dl (14.0-18.0); LYMPHOCYTES # 0.7 10^3/ul (0.8-2.9); LYMPHOCYTES % 10.8 % (15.0-51.0); MEAN CORPUSCULAR HEMOGLOBIN 29.8 pg (29.0-33.0); MEAN CORPUSCULAR HGB CONC 30.5 g/dl (32.0-37.0); MEAN CORPUSCULAR VOLUME 97.9 fl (82.0-101.0); MEAN PLATELET VOLUME 11.5 fl (7.4-10.4); MONOCYTE # 0.5 10^3/ul (0.3-0.9); MONOCYTES % 7.4 % (0.0-11.0); NEUTROPHIL # 5.3 10^3/ul (1.6-7.5); NEUTROPHILS % 79.3 % (39.0-77.0); PLATELET COUNT 145 10^3/UL (140-415); RED BLOOD COUNT 2.85 10^6/ul (4.70-6.10); RED CELL DISTRIBUTION WIDTH 13.7 % (11.5-14.5); WHITE BLOOD COUNT 6.6 10^3/ul (4.8-10.8)
[2016-11-03 06:38] LABS: CALCIUM 8.3 mg/dl (8.4-10.2); CREATININE 1.6 mg/dl (0.61-1.24); POTASSIUM 4.5 mmol/L (3.5-5.1)
[2016-11-03] MEDS: POLYETHYLENE GLYCOL 17 GM PACKET GTB SCH (08:16)
[2016-11-03] MEDS: CITRIC ACID/NA CIT (1 MEQ/ML POSYG) PO SCH ×3 (08:27→20:52)
[2016-11-03] MEDS: FERROUS SULFATE 60 MG/ML 5ML CUP GTB SCH (08:28)
[2016-11-03] MEDS: ASCORBIC ACID 500 MG TAB GTB SCH (08:28)
[2016-11-03] MEDS: MUPIROCIN 2% 22 GM OINT TOP SCH ×2 (08:28→20:53)
[2016-11-03] MEDS: ZINC SULFATE 220 MG CAP GTB SCH (08:28)
[2016-11-03] MEDS: ZYVOX 600 MG TAB PO SCH ×2 (08:28→20:51)
[2016-11-03] MEDS: MULTIVIT/CA CARB/B CMPLX/FA TAB GTB SCH (08:28)
[2016-11-03] MEDS: COLLAGENASE 30 GM TUBE TOP SCH (08:28)
[2016-11-03] MEDS: GABAPENTIN (50 MG/ML PO SYG) PO SCH ×3 (09:00→20:53)
--- NOTE | 2016-11-03 11:18 | PN ---
DATE: 11/03/2016 SUBJECTIVE DATA: The patient's condition is same. He is resting comfortably on ventilator support. He is fully awake, alert, and able to verbalize to some extent. OBJECTIVE DATA: VITAL SIGNS: His vital signs are stable. Temperature is 98, blood pressure 119/82, pulse rate is 84, respirations 20, pulse oximetry 97 percent on saturation. HEENT: Tracheal secretions are clear. No bleeding is seen. HEART: Regular rhythm. CHEST: Breath sounds are diminished in both lower lung [place], based otherwise clear. ABDOMEN: Soft, not distended. He is tolerating oral feedings. EXTREMITIES: No edema. He is paraplegic in both the lower extremities. LAB TESTS: From today show sodium 140, potassium 4.5, bicarbonate of 23, BUN is 34, creatinine 1.6, glucose is 79. The CBC shows WBC 6600, hemoglobin 8.5, hematocrit 37.9, platelets 145,000. He has VRE isolated in her urine culture. IMPRESSION: 1. Chronic respiratory failure. Ventilator dependent. 2. Urinary infection with vancomycin-resistant Enterococcus. 3. Chronic kidney disease. 4. Nephrolithiasis status post lithotripsy. 5. Chronic anemia. 6. Chronic bilateral pleural effusions. 7. 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 PLAN: 1. Continue ventilator support. 2. Continue antibiotics as per Infectious Disease marketing sales consultant. 3. Continue with all bronchodilator therapy. 4. Continue oral feedings as tolerated. 5. Wound care to start discharge planning to send him back to the [place] [facility]. Dictated By: Palmer Ames MD /sera/maida /Document#: [id number]
--- NOTE | 2016-11-03 12:44 | CONS ---
Date/Time of Note Date/Time of Note DATE: 11/03/16 TIME: 12:43 Assessment/Plan Assessment/Plan Chief Complaint/Hosp Course SUBJECTIVE DATA: No acute changes overnight. The patient is alert, looks comfortable. Denies pain. No fevers. MICROBIOLOGY: Urine culture growing VRE INDWELLINGS: Trach, PEG, suprapubic catheter. ANTIMICROBIALS: Zyvox #3, s/p Fosfomycin dose PHYSICAL EXAMINATION: GENERAL: Well developed, chronically ill-appearing, middle-aged, quadriplegic man, who is in no distress. HEENT: Head atraumatic, normocephalic. Sclerae anicteric. Buccal mucosa dry. NECK: Supple. Tracheostomy present. CHEST: Chest rise symmetrical. Breath sounds diminished to bases. HEART: S1, S2. ABDOMEN: Soft, bowel sounds present. EXTREMITIES: Without cyanosis, wasted. ASSESSMENT: 1. Status post septic shock/PNA. 2. VRE UTI. 3. Scabies, status post Elimite and ivermectin. 4. History of right nephrectomy. 5. Status post shockwave lithotripsy with removal of old stent. 6. Multiple chronic wounds. PLAN: The patient remains stable. Antibiotics were adjusted per urine cx, continue present care, f/u pulmonary/urology rec-s ?dc plan [facility] staff Problems: Consultation Date/Type/Reason Admit Date/Time Oct 21, 2016 at 15:46 Initial Consult Date 10/20/16 Type of Consultation: id Referring Provider: JOSÉ ANTONIO MIRZA MD Exam/Review of Systems Vital Signs Vitals Vital Signs Date Time Temp Pulse Resp B/P Pulse Ox O2 Delivery O2 Flow Rate FiO2 11/03/16 11:04 98.3 98 19 114/74 98 11/03/16 10:55 50 Intake and Output 11/02/16 11/02/16 11/03/16 15:00 23:00 07:00 Intake Total 800 ml Output Total 1000 ml Balance -200 ml Results Result Diagram: 11/03/16 0553 11/03/16 0553 Results 24 hrs Laboratory Tests Test 11/03/16 05:53 White Blood Count 6.6 # Red Blood Count 2.85 L Hemoglobin 8.5 L Hematocrit 27.9 L Mean Corpuscular Volume 97.9 Mean Corpuscular Hemoglobin 29.8 Mean Corpuscular Hemoglobin Concent 30.5 L Red Cell Distribution Width 13.7 Platelet Count 145 Mean Platelet Volume 11.5 H Neutrophils % 79.3 H Lymphocytes % 10.8 L Monocytes % 7.4 Eosinophils % 1.8 Basophils % 0.2 Nucleated Red Blood Cells % 0.0 Neutrophils # 5.3 Lymphocytes # 0.7 L Monocytes # 0.5 Eosinophils # 0.1 Basophils # 0.0 Nucleated Red Blood Cells # 0.0 Sodium Level 140 Potassium Level 4.5 Chloride Level 113 H Carbon Dioxide Level 23 Anion Gap 9 Blood Urea Nitrogen 34 H Creatinine 1.60 H Glucose Level 79 Calcium Level 8.3 L Medications Medications Current Medications Dextrose (D50w Syringe) ONCE PRN IV POC BLOOD GLUCOSE <250 MG/DL; Start at 06:00 Hydromorphone HCl (Dilaudid) 1 mg Q4H PRN IV PAIN Last administered on 10:04; Admin Dose 1 MG; Start 10/20/16 at 10:00 Acetaminophen (Tylenol Liquid) 650 mg Q4H PRN GTB MILD PAIN LEVEL 1-3 Last administered on 11/01/16 06:29; Admin Dose 650 MG; Start 10/20/16 at 13:30 Ascorbic Acid (Vitamin C) 500 mg DAILY GTB Last administered on 11/03/16 08:28 ; Admin Dose 500 MG; Start 10/20/16 at 14:00 Bisacodyl (Dulcolax Supp) 10 mg Q24H PRN [place] CONSTIPATION; Start 10/20/16 at 13: 30 Enoxaparin Sodium (Lovenox) 30 mg DAILY SC ; Start 10/21/16 at 09:00; Status Future Hold Magnesium Hydroxide (Milk Of Mag) 30 ml DAILY PRN GTB CONSTIPATION; Start 10/20 at 13:30 Polyethylene Glycol (Miralax) 17 gm DAILY GTB Last administered on 11/01/16 20 :24; Admin Dose 17 GM; Start 10/20/16 at 13:30 Zinc Sulfate (Zinc Sulfate) 220 mg DAILY GTB Last administered on 11/03/16 08: 28; Admin Dose 220 MG; Start 10/21/16 at 09:00 Multivit/Ca Carb/ B Cmplx/FA/Prenat (Lilibeth-Linn) 1 tab DAILY GTB Last administered on 11/03/16 08:28; Admin Dose 1 TAB; Start 10/21/16 at 09:00 Acetaminophen/ Hydrocodone Bitart ([place] (5/325)) 1 tab Q6 PRN GTB PAIN LEVEL 1 -5 Last administered on 11/03/16 00:45; Admin Dose 1 TAB; Start 10/20/16 at 14: 00 Ferrous Sulfate (Feosol Liquid Cup) 300 mg DAILY GTB Last administered on 08:28; Admin Dose 300 MG; Start 10/20/16 at 14:07 Miscellaneous Information (Pending Santyl Order For Wound Care) This patient noriega... PRN PRN XX WOUND CARE; Start 10/20/16 at 20:00 Zolpidem Tartrate (Ambien) 5 mg HS PRN PO INSOMNIA Last administered on 22:06; Admin Dose 5 MG; Start 10/20/16 at 21:00 Mupirocin (Bactroban) 1 applic BID TOP Last administered on 11/03/16 08:28; Admin Dose 1 APPLIC; Start 10/22/16 at 21:00 Collagenase (Santyl) 1 applic DAILY TOP Last administered on 11/03/16 08:28; Admin Dose 1 APPLIC; Start 11/02/16 at 09:00 Linezolid (Zyvox) 600 mg BID PO Last administered on 11/03/16 08:28; Admin Dose 600 MG; Start 11/01/16 at 10:30 Citric Acid/ Sodium Citrate (Bicitra Liquid (Ped)) 10 meq TID PO Last administered on 11/03/16 08:27; Admin Dose 10 MEQ; Start 11/03/16 at 09:00 Docusate Sodium (Colace Liquid Cup) 200 mg QHS PO ; Start 11/03/16 at 21:00 Gabapentin (Neurontin Liquid) 100 mg TID PO Last administered on 11/03/16 09: 00; Admin Dose 100 MG; Start 11/03/16 at 09:00 Risperidone (Risperdal) 1 mg QHS PO ; Start 11/03/16 at 21:00 Lansoprazole (Prevacid) 30 mg DAILY@06 PO Last administered on 11/03/16 06:11 ; Admin Dose 30 MG; Start 11/03/16 at 06:00 REGINALDO CHERY NP Nov 03, 2016 12:44
--- NOTE | 2016-11-03 13:05 | PN ---
Date/Time of Note Date/Time of Note DATE: 11/03/16 TIME: 13:05 Assessment/Plan VTE Prophylaxis VTE Prophylaxis Intervention: other Lines/Catheters [facility] Type (from [facility] PICC Line Central line still needed: Yes Urinary Cath still in place: Yes Reason Cath still needed: urinary retention Assessment/Plan Assessment/Plan - Hyperkalemia- resolved - VRE in urine, started on Zyvox. - Possible scabies, continue on Elimite - Sepsis due to HCAP, urinary tract infection, resolving. - per Dr. Maciel in infection disease consultation. Continue antibiotics per ID. - Neurogenic bladder with suprapubic catheter. - Left renal nephrolithiasis, Dr Marquez is following in urology consultation. S /p lithotripsy and movable of a left ureteral JJ stent by Dr. Marquez 10/29. - Acute kidney injury on chronic kidney disease. Continue to monitor renal function. - Status post right nephrectomy - Ventilator-dependent respiratory failure with tracheostomy. - Dysphagia with percutaneous endoscopic gastrostomy tube. - Multiple decubitus ulcers present on admission. - Cervical spine injury with paraplegia. - Bipolar disorder with psychosis. Further recommendations based on clinical course. Plan of care discussed with Dr. Barreto. Subjective 24 Hr Interval Summary Constitutional: no complaints, requiring IVF, requiring O2 Respiratory: no complaints Cardiovascular: no complaints Gastrointestinal: no complaints Genitourinary: no complaints Skin: other (decub) Exam/Review of Systems Vital Signs Vitals Vital Signs Date Time Temp Pulse Resp B/P Pulse Ox O2 Delivery O2 Flow Rate FiO2 11/03/16 11:04 98.3 98 19 114/74 98 11/03/16 10:55 50 Intake and Output 11/02/16 11/02/16 11/03/16 15:00 23:00 07:00 Intake Total 800 ml Output Total 1000 ml Balance -200 ml Exam Constitutional: alert, oriented (name, place) Psych: nl mood/affect Respiratory: clear to auscultation, normal air movement Cardiovascular: nl pulses, regular rate and rhythm Musculoskeletal: muscle weakness Extremities: normal pulses Neurological: other (alert/awake , follows simple commands) Skin: other Results Result Diagram: 11/03/16 0553 11/03/16 0553 Results 24 hrs Laboratory Tests Test 11/03/16 05:53 White Blood Count 6.6 # Red Blood Count 2.85 L Hemoglobin 8.5 L Hematocrit 27.9 L Mean Corpuscular Volume 97.9 Mean Corpuscular Hemoglobin 29.8 Mean Corpuscular Hemoglobin Concent 30.5 L Red Cell Distribution Width 13.7 Platelet Count 145 Mean Platelet Volume 11.5 H Neutrophils % 79.3 H Lymphocytes % 10.8 L Monocytes % 7.4 Eosinophils % 1.8 Basophils % 0.2 Nucleated Red Blood Cells % 0.0 Neutrophils # 5.3 Lymphocytes # 0.7 L Monocytes # 0.5 Eosinophils # 0.1 Basophils # 0.0 Nucleated Red Blood Cells # 0.0 Sodium Level 140 Potassium Level 4.5 Chloride Level 113 H Carbon Dioxide Level 23 Anion Gap 9 Blood Urea Nitrogen 34 H Creatinine 1.60 H Glucose Level 79 Calcium Level 8.3 L Medications Medications Current Medications Dextrose (D50w Syringe) ONCE PRN IV POC BLOOD GLUCOSE <250 MG/DL; Start at 06:00 Hydromorphone HCl (Dilaudid) 1 mg Q4H PRN IV PAIN Last administered on 10:04; Admin Dose 1 MG; Start 10/20/16 at 10:00 Acetaminophen (Tylenol Liquid) 650 mg Q4H PRN GTB MILD PAIN LEVEL 1-3 Last administered on 11/01/16 06:29; Admin Dose 650 MG; Start 10/20/16 at 13:30 Ascorbic Acid (Vitamin C) 500 mg DAILY GTB Last administered on 11/03/16 08:28 ; Admin Dose 500 MG; Start 10/20/16 at 14:00 Bisacodyl (Dulcolax Supp) 10 mg Q24H PRN [place] CONSTIPATION; Start 10/20/16 at 13: 30 Enoxaparin Sodium (Lovenox) 30 mg DAILY SC ; Start 10/21/16 at 09:00; Status Future Hold Magnesium Hydroxide (Milk Of Mag) 30 ml DAILY PRN GTB CONSTIPATION; Start 10/20 at 13:30 Polyethylene Glycol (Miralax) 17 gm DAILY GTB Last administered on 11/01/16 20 :24; Admin Dose 17 GM; Start 10/20/16 at 13:30 Zinc Sulfate (Zinc Sulfate) 220 mg DAILY GTB Last administered on 11/03/16 08: 28; Admin Dose 220 MG; Start 10/21/16 at 09:00 Multivit/Ca Carb/ B Cmplx/FA/Prenat ([place]ilibeth-Linn) 1 tab DAILY GTB Last administered on 11/03/16 08:28; Admin Dose 1 TAB; Start 10/21/16 at 09:00 Acetaminophen/ Hydrocodone Bitart ([place] (5/325)) 1 tab Q6 PRN GTB PAIN LEVEL 1 -5 Last administered on 11/03/16 00:45; Admin Dose 1 TAB; Start 10/20/16 at 14: 00 Ferrous Sulfate (Feosol Liquid Cup) 300 mg DAILY GTB Last administered on 08:28; Admin Dose 300 MG; Start 10/20/16 at 14:07 Miscellaneous Information (Pending Santyl Order For Wound Care) This patient noriega... PRN PRN XX WOUND CARE; Start 10/20/16 at 20:00 Zolpidem Tartrate (Ambien) 5 mg HS PRN PO INSOMNIA Last administered on 22:06; Admin Dose 5 MG; Start 10/20/16 at 21:00 Mupirocin (Bactroban) 1 applic BID TOP Last administered on 11/03/16 08:28; Admin Dose 1 APPLIC; Start 10/22/16 at 21:00 Collagenase (Santyl) 1 applic DAILY TOP Last administered on 11/03/16 08:28; Admin Dose 1 APPLIC; Start 11/02/16 at 09:00 Linezolid (Zyvox) 600 mg BID PO Last administered on 11/03/16 08:28; Admin Dose 600 MG; Start 11/01/16 at 10:30 Citric Acid/ Sodium Citrate (Bicitra Liquid (Ped)) 10 meq TID PO Last administered on 11/03/16 08:27; Admin Dose 10 MEQ; Start 11/03/16 at 09:00 Docusate Sodium (Colace Liquid Cup) 200 mg QHS PO ; Start 11/03/16 at 21:00 Gabapentin (Neurontin Liquid) 100 mg TID PO Last administered on 11/03/16 09: 00; Admin Dose 100 MG; Start 11/03/16 at 09:00 Risperidone (Risperdal) 1 mg QHS PO ; Start 11/03/16 at 21:00 Lansoprazole (Prevacid) 30 mg DAILY@06 PO Last administered on 11/03/16t 06:11 ; Admin Dose 30 MG; Start 11/03/16 at 06:00 NAE VELAZCO Nov 03, 2016 13:05
--- NOTE | 2016-11-03 18:05 | CONS ---
Date/Time of Note Date/Time of Note DATE: 11/03/16 TIME: 18:03 Assessment/Plan Assessment/Plan Additional Assessment/Plan Sepsis/SIRS Hypotension, improved Sinus tachycardia, improved Acute kidney injury, improved Respiratory Failure Preserved EF on echocardiogram March 02, 2016 History of intermittent Mobitz I Chronic pain syndrome Hyperkalemia -Heart rate trend overall stable. Continue to hold any antihypertensive medications. Antibiotics as per primary team. Consultation Date/Type/Reason Admit Date/Time Oct 21, 2016 at 15:46 Initial Consult Date 10/20/16 Type of Consultation: cv Referring Provider: JOSÉ ANTONIO MIRZA MD 24 HR Interval Summary Free Text/Dictation Denies shortness of breath, chest pain palpitations Exam/Review of Systems Vital Signs Vitals Vital Signs Date Time Temp Pulse Resp B/P Pulse Ox O2 Delivery O2 Flow Rate FiO2 11/03/16 17:28 90 28 96 50 11/03/16 16:05 98.2 110/69 Intake and Output 11/02/16 11/02/16 11/03/16 15:00 23:00 07:00 Intake Total 800 ml Output Total 1000 ml Balance -200 ml Exam No apparent distress Constitutional: alert, frail, oriented Head: normocephalic Neck: other (Tracheostomy) Respiratory: other (Coarse breath sounds bilaterally, no wheezing) Cardiovascular: other (S1-S2 heard), regular rate and rhythm Gastrointestinal: bowel sounds, non-tender, soft Extremities: other (No edema) Results Result Diagram: 11/03/16 0553 11/03/16 0553 Results 24 hrs Laboratory Tests Test 11/03/16 05:53 White Blood Count 6.6 # Red Blood Count 2.85 L Hemoglobin 8.5 L Hematocrit 27.9 L Mean Corpuscular Volume 97.9 Mean Corpuscular Hemoglobin 29.8 Mean Corpuscular Hemoglobin Concent 30.5 L Red Cell Distribution Width 13.7 Platelet Count 145 Mean Platelet Volume 11.5 H Neutrophils % 79.3 H Lymphocytes % 10.8 L Monocytes % 7.4 Eosinophils % 1.8 Basophils % 0.2 Nucleated Red Blood Cells % 0.0 Neutrophils # 5.3 Lymphocytes # 0.7 L Monocytes # 0.5 Eosinophils # 0.1 Basophils # 0.0 Nucleated Red Blood Cells # 0.0 Sodium Level 140 Potassium Level 4.5 Chloride Level 113 H Carbon Dioxide Level 23 Anion Gap 9 Blood Urea Nitrogen 34 H Creatinine 1.60 H Glucose Level 79 Calcium Level 8.3 L Medications Medications Current Medications Dextrose (D50w Syringe) ONCE PRN IV POC BLOOD GLUCOSE <250 MG/DL; Start at 06:00 Hydromorphone HCl (Dilaudid) 1 mg Q4H PRN IV PAIN Last administered on 17:51; Admin Dose 1 MG; Start 10/20/16 at 10:00 Acetaminophen (Tylenol Liquid) 650 mg Q4H PRN GTB MILD PAIN LEVEL 1-3 Last administered on 11/01/16 06:29; Admin Dose 650 MG; Start 10/20/16 at 13:30 Ascorbic Acid (Vitamin C) 500 mg DAILY GTB Last administered on 11/03/16 08:28 ; Admin Dose 500 MG; Start 10/20/16 at 14:00 Bisacodyl (Dulcolax Supp) 10 mg Q24H PRN [place] CONSTIPATION; Start 10/20/16 at 13: 30 Enoxaparin Sodium (Lovenox) 30 mg DAILY SC ; Start 10/21/16 at 09:00; Status Future Hold Magnesium Hydroxide (Milk Of Mag) 30 ml DAILY PRN GTB CONSTIPATION; Start 10/20 at 13:30 Polyethylene Glycol (Miralax) 17 gm DAILY GTB Last administered on 11/01/16 20 :24; Admin Dose 17 GM; Start 10/20/16 at 13:30 Zinc Sulfate (Zinc Sulfate) 220 mg DAILY GTB Last administered on 11/03/16 08: 28; Admin Dose 220 MG; Start 10/21/16 at 09:00 Multivit/Ca Carb/ B Cmplx/FA/Prenat (Lilibeth-Linn) 1 tab DAILY GTB Last administered on 11/03/16 08:28; Admin Dose 1 TAB; Start 10/21/16 at 09:00 Acetaminophen/ Hydrocodone Bitart ([place] (5/325)) 1 tab Q6 PRN GTB PAIN LEVEL 1 -5 Last administered on 11/03/16 15:48; Admin Dose 1 TAB; Start 10/20/16 at 14: 00 Ferrous Sulfate (Feosol Liquid Cup) 300 mg DAILY GTB Last administered on 08:28; Admin Dose 300 MG; Start 10/20/16 at 14:07 Miscellaneous Information (Pending Santyl Order For Wound Care) This patient noriega... PRN PRN XX WOUND CARE; Start 10/20/16 at 20:00 Zolpidem Tartrate (Ambien) 5 mg HS PRN PO INSOMNIA Last administered on 22:06; Admin Dose 5 MG; Start 10/20/16 at 21:00 Mupirocin (Bactroban) 1 applic BID TOP Last administered on 11/03/16 08:28; Admin Dose 1 APPLIC; Start 10/22/16 at 21:00 Collagenase (Santyl) 1 applic DAILY TOP Last administered on 11/03/16 08:28; Admin Dose 1 APPLIC; Start 11/02/16 at 09:00 Linezolid (Zyvox) 600 mg BID PO Last administered on 11/03/16 08:28; Admin Dose 600 MG; Start 11/01/16 at 10:30 Citric Acid/ Sodium Citrate (Bicitra Liquid (Ped)) 10 meq TID PO Last administered on 11/03/16 13:44; Admin Dose 10 MEQ; Start 11/03/16 at 09:00 Docusate Sodium (Colace Liquid Cup) 200 mg QHS PO ; Start 11/03/16 at 21:00 Gabapentin (Neurontin Liquid) 100 mg TID PO Last administered on 11/03/16 13: 43; Admin Dose 100 MG; Start 11/03/16 at 09:00 Risperidone (Risperdal) 1 mg QHS PO ; Start 11/03/16 at 21:00 Lansoprazole (Prevacid) 30 mg DAILY@06 PO Last administered on 11/03/16 06:11 ; Admin Dose 30 MG; Start 11/03/16 at 06:00 Deandre Chavez DO Nov 03, 2016 18:05
[2016-11-03] MEDS: RISPERIDONE 1 MG TAB PO SCH (20:51)
[2016-11-03] MEDS: ZOLPIDEM 5 MG TAB PO PRN (20:51)
[2016-11-03] MEDS: DOCUSATE SODIUM 10 MG/ML (10ML CUP) PO SCH (20:52)
--- NOTE | 2016-11-03 21:25 | CONS ---
Date/Time of Note Date/Time of Note DATE: 11/03/16 TIME: 21:24 Assessment/Plan Assessment/Plan Additional Assessment/Plan 1. Acute kidney injury secondary to severe prerenal azotemia and possible acute tubular necrosis. 2. Acute uremia with a BUN of 46, Cr 1.42 on admission 3. Acute hyperkalemia- resolved 5. 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 6. History of neurogenic bladder with urinary retention, status post suprapubic catheter. 7. History of previous recurrent urinary tract infections. 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 9. 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 10. Other medical history includes anxiety, depression, bipolar disorder, psychosis. 11. History of right nephrectomy with left renal nephrolithiasis and a left renal cyst measuring 5.3 cm in size. 12. Hyperkalemia Plan: - K normal, Cr 1.6 BP stable - IV abx as per ID, renally dose all abx and Monitor electrolytes. - will follow up Consultation Date/Type/Reason Admit Date/Time Oct 21, 2016 at 15:46 Initial Consult Date 10/20/16 Type of Consultation: NEPHROLOGY Referring Provider: JOSÉ ANTONIO MIRZA MD 24 HR Interval Summary Free Text/Dictation Cr 1.6 K normal BP stable Exam/Review of Systems Vital Signs Vitals Vital Signs Date Time Temp Pulse Resp B/P Pulse Ox O2 Delivery O2 Flow Rate FiO2 11/03/16 21:07 88 28 98 50 11/03/16 20:00 99.8 112/70 Intake and Output 11/02/16 11/02/16 11/03/16 15:00 23:00 07:00 Intake Total 800 ml Output Total 1000 ml Balance -200 ml Exam Constitutional: alert ENMT: nl external ears & nose, other (+ tracheostomy on ventilator ) Respiratory: clear to auscultation, crackles/rales Cardiovascular: nl pulses, regular rate and rhythm Gastrointestinal: non-tender, other (+ G tube placement ), soft Musculoskeletal: quadruplegic Results Result Diagram: 11/03/16 0553 11/03/16 0553 Results 24 hrs Laboratory Tests Test 11/03/16 05:53 White Blood Count 6.6 # Red Blood Count 2.85 L Hemoglobin 8.5 L Hematocrit 27.9 L Mean Corpuscular Volume 97.9 Mean Corpuscular Hemoglobin 29.8 Mean Corpuscular Hemoglobin Concent 30.5 L Red Cell Distribution Width 13.7 Platelet Count 145 Mean Platelet Volume 11.5 H Neutrophils % 79.3 H Lymphocytes % 10.8 L Monocytes % 7.4 Eosinophils % 1.8 Basophils % 0.2 Nucleated Red Blood Cells % 0.0 Neutrophils # 5.3 Lymphocytes # 0.7 L Monocytes # 0.5 Eosinophils # 0.1 Basophils # 0.0 Nucleated Red Blood Cells # 0.0 Sodium Level 140 Potassium Level 4.5 Chloride Level 113 H Carbon Dioxide Level 23 Anion Gap 9 Blood Urea Nitrogen 34 H Creatinine 1.60 H Glucose Level 79 Calcium Level 8.3 L Medications Medications Current Medications Dextrose (D50w Syringe) ONCE PRN IV POC BLOOD GLUCOSE <250 MG/DL; Start at 06:00 Hydromorphone HCl (Dilaudid) 1 mg Q4H PRN IV PAIN Last administered on 17:51; Admin Dose 1 MG; Start 10/20/16 at 10:00 Acetaminophen (Tylenol Liquid) 650 mg Q4H PRN GTB MILD PAIN LEVEL 1-3 Last administered on 11/01/16 06:29; Admin Dose 650 MG; Start 10/20/16 at 13:30 Ascorbic Acid (Vitamin C) 500 mg DAILY GTB Last administered on 11/03/16 08:28 ; Admin Dose 500 MG; Start 10/20/16 at 14:00 Bisacodyl (Dulcolax Supp) 10 mg Q24H PRN [place] CONSTIPATION; Start 10/20/16 at 13: 30 Enoxaparin Sodium (Lovenox) 30 mg DAILY SC ; Start 10/21/16 at 09:00; Status Future Hold Magnesium Hydroxide (Milk Of Mag) 30 ml DAILY PRN GTB CONSTIPATION; Start 10/20 at 13:30 Polyethylene Glycol (Miralax) 17 gm DAILY GTB Last administered on 11/01/16 20 :24; Admin Dose 17 GM; Start 10/20/16 at 13:30 Zinc Sulfate (Zinc Sulfate) 220 mg DAILY GTB Last administered on 11/03/16 08: 28; Admin Dose 220 MG; Start 10/21/16 at 09:00 Multivit/Ca Carb/ B Cmplx/FA/Prenat (Lilibeth-Linn) 1 tab DAILY GTB Last administered on 11/03/16 08:28; Admin Dose 1 TAB; Start 10/21/16 at 09:00 Acetaminophen/ Hydrocodone Bitart ([place] (5/325)) 1 tab Q6 PRN GTB PAIN LEVEL 1 -5 Last administered on 11/03/16 15:48; Admin Dose 1 TAB; Start 10/20/16 at 14: 00 Ferrous Sulfate (Feosol Liquid Cup) 300 mg DAILY GTB Last administered on 08:28; Admin Dose 300 MG; Start 10/20/16 at 14:07 Miscellaneous Information (Pending Santyl Order For Wound Care) This patient noriega... PRN PRN XX WOUND CARE; Start 10/20/16 at 20:00 Zolpidem Tartrate (Ambien) 5 mg HS PRN PO INSOMNIA Last administered on 20:51; Admin Dose 5 MG; Start 10/20/16 at 21:00 Mupirocin (Bactroban) 1 applic BID TOP Last administered on 11/03/16 20:53; Admin Dose 1 APPLIC; Start 10/22/16 at 21:00 Collagenase (Santyl) 1 applic DAILY TOP Last administered on 11/03/16 08:28; Admin Dose 1 APPLIC; Start 11/02/16 at 09:00 Linezolid (Zyvox) 600 mg BID PO Last administered on 11/03/16 20:51; Admin Dose 600 MG; Start 11/01/16 at 10:30 Citric Acid/ Sodium Citrate (Bicitra Liquid (Ped)) 10 meq TID PO Last administered on 11/03/16 20:52; Admin Dose 10 MEQ; Start 11/03/16 at 09:00 Docusate Sodium (Colace Liquid Cup) 200 mg QHS PO ; Start 11/03/16 at 21:00 Gabapentin (Neurontin Liquid) 100 mg TID PO Last administered on 11/03/16 20: 53; Admin Dose 100 MG; Start 11/03/16 at 09:00 Risperidone (Risperdal) 1 mg QHS PO Last administered on 11/03/16 20:51; Admin Dose 1 MG; Start 11/03/16 at 21:00 Lansoprazole (Prevacid) 30 mg DAILY@06 PO Last administered on 11/03/16t 06:11 ; Admin Dose 30 MG; Start 11/03/16 at 06:00 TIARA CISNEROS MD Nov 03, 2016 21:25
[2016-11-04] VITALS (21 sets, daily range): BP systolic 104–119; BP diastolic 58–74; PULSE 78–100; RESP 15–30
[2016-11-04] MEDS: IPRATROPIUM (HFA) 12.9 GM INHALER INH SCH ×4 (01:09→19:23)
[2016-11-04] MEDS: LEVALBUTEROL (HFA) 15 GM INHALER INH SCH ×4 (01:09→19:23)
[2016-11-04] MEDS: HYDROmorphONE 1 MG/ML SYG IV PRN ×6 (02:05→21:56)
[2016-11-04] MEDS: LANSOPRAZOLE 30 MG CAP PO SCH (06:12)
[2016-11-04] MEDS: ZINC SULFATE 220 MG CAP GTB SCH (08:19)
[2016-11-04] MEDS: ZYVOX 600 MG TAB PO SCH ×2 (08:19→21:01)
[2016-11-04] MEDS: FERROUS SULFATE 60 MG/ML 5ML CUP GTB SCH (08:19)
[2016-11-04] MEDS: MULTIVIT/CA CARB/B CMPLX/FA TAB GTB SCH (08:19)
[2016-11-04] MEDS: ASCORBIC ACID 500 MG TAB GTB SCH (08:19)
[2016-11-04] MEDS: GABAPENTIN (50 MG/ML PO SYG) PO SCH ×3 (08:20→21:28)
[2016-11-04] MEDS: COLLAGENASE 30 GM TUBE TOP SCH (08:20)
[2016-11-04] MEDS: CITRIC ACID/NA CIT (1 MEQ/ML POSYG) PO SCH ×3 (08:20→20:59)
[2016-11-04] MEDS: MUPIROCIN 2% 22 GM OINT TOP SCH ×2 (08:20→21:01)
[2016-11-04] MEDS: POLYETHYLENE GLYCOL 17 GM PACKET GTB SCH (08:21)
[2016-11-04] MEDS: HYDROCODONE/APAP (5/325) TAB GTB PRN (08:27)
--- NOTE | 2016-11-04 13:56 | CONS ---
Date/Time of Note Date/Time of Note DATE: 11/04/16 TIME: 13:55 Assessment/Plan Assessment/Plan Additional Assessment/Plan Sepsis/SIRS Hypotension, improved Sinus tachycardia, improved Acute kidney injury, improved Respiratory Failure Preserved EF on echocardiogram March 02, 2016 History of intermittent Mobitz I Chronic pain syndrome Hyperkalemia -Heart rate trend overall stable. Continue to hold any antihypertensive medications. Antibiotics as per primary team. Consultation Date/Type/Reason Admit Date/Time Oct 21, 2016 at 15:46 Initial Consult Date 10/20/16 Type of Consultation: cv Referring Provider: JOSÉ ANTONIO MIRZA MD 24 HR Interval Summary Free Text/Dictation Denies shortness of breath, chest pain Exam/Review of Systems Vital Signs Vitals Vital Signs Date Time Temp Pulse Resp B/P Pulse Ox O2 Delivery O2 Flow Rate FiO2 11/04/16 13:05 98.0 78 20 108/67 100 11/04/16 13:05 50 Intake and Output 11/03/16 11/03/16 11/04/16 15:00 23:00 07:00 Intake Total 600 ml 600 ml Output Total 2200 ml 1200 ml Balance -1600 ml -600 ml Exam No apparent distress Constitutional: alert, oriented Head: normocephalic Respiratory: other (Coarse breath sounds bilaterally, no wheezing) Cardiovascular: other (S1-S2 heard), regular rate and rhythm Gastrointestinal: bowel sounds, non-tender, soft Extremities: other (No edema) Results Result Diagram: 11/03/16 0553 11/03/16 0553 Medications Medications Current Medications Dextrose (D50w Syringe) ONCE PRN IV POC BLOOD GLUCOSE <250 MG/DL; Start at 06:00 Hydromorphone HCl (Dilaudid) 1 mg Q4H PRN IV PAIN Last administered on 09:56; Admin Dose 1 MG; Start 10/20/16 at 10:00 Acetaminophen (Tylenol Liquid) 650 mg Q4H PRN GTB MILD PAIN LEVEL 1-3 Last administered on 11/01/16 06:29; Admin Dose 650 MG; Start 10/20/16 at 13:30 Ascorbic Acid (Vitamin C) 500 mg DAILY GTB Last administered on 11/04/16 08:19 ; Admin Dose 500 MG; Start 10/20/16 at 14:00 Bisacodyl (Dulcolax Supp) 10 mg Q24H PRN [place] CONSTIPATION; Start 10/20/16 at 13: 30 Enoxaparin Sodium (Lovenox) 30 mg DAILY SC ; Start 10/21/16 at 09:00; Status Future Hold Magnesium Hydroxide (Milk Of Mag) 30 ml DAILY PRN GTB CONSTIPATION; Start 10/20 at 13:30 Polyethylene Glycol (Miralax) 17 gm DAILY GTB Last administered on 11/01/16 20 :24; Admin Dose 17 GM; Start 10/20/16 at 13:30 Zinc Sulfate (Zinc Sulfate) 220 mg DAILY GTB Last administered on 11/04/16 08: 19; Admin Dose 220 MG; Start 10/21/16 at 09:00 Multivit/Ca Carb/ B Cmplx/FA/Prenat (Lilibeth-Linn) 1 tab DAILY GTB Last administered on 11/04/16 08:19; Admin Dose 1 TAB; Start 10/21/16 at 09:00 Acetaminophen/ Hydrocodone Bitart ([place] (5/325)) 1 tab Q6 PRN GTB PAIN LEVEL 1 -5 Last administered on 11/04/16 08:27; Admin Dose 1 TAB; Start 10/20/16 at 14: 00 Ferrous Sulfate (Feosol Liquid Cup) 300 mg DAILY GTB Last administered on 08:19; Admin Dose 300 MG; Start 10/20/16 at 14:07 Miscellaneous Information (Pending Santyl Order For Wound Care) This patient noriega... PRN PRN XX WOUND CARE; Start 10/20/16 at 20:00 Zolpidem Tartrate (Ambien) 5 mg HS PRN PO INSOMNIA Last administered on 20:51; Admin Dose 5 MG; Start 10/20/16 at 21:00 Mupirocin (Bactroban) 1 applic BID TOP Last administered on 11/04/16 08:20; Admin Dose 1 APPLIC; Start 10/22/16 at 21:00 Collagenase (Santyl) 1 applic DAILY TOP Last administered on 11/04/16 08:20; Admin Dose 1 APPLIC; Start 11/02/16 at 09:00 Linezolid (Zyvox) 600 mg BID PO Last administered on 11/04/16 08:19; Admin Dose 600 MG; Start 11/01/16 at 10:30 Citric Acid/ Sodium Citrate (Bicitra Liquid (Ped)) 10 meq TID PO Last administered on 11/04/16 08:20; Admin Dose 10 MEQ; Start 11/03/16 at 09:00 Docusate Sodium (Colace Liquid Cup) 200 mg QHS PO ; Start 11/03/16 at 21:00 Gabapentin (Neurontin Liquid) 100 mg TID PO Last administered on 11/04/16 08: 20; Admin Dose 100 MG; Start 11/03/16 at 09:00 Risperidone (Risperdal) 1 mg QHS PO Last administered on 11/03/16 20:51; Admin Dose 1 MG; Start 11/03/16 at 21:00 Lansoprazole (Prevacid) 30 mg DAILY@06 PO Last administered on 11/04/16 06:12 ; Admin Dose 30 MG; Start 11/03/16 at 06:00 Deandre Chavez DO Nov 04, 2016 13:56
--- NOTE | 2016-11-04 14:05 | CONS ---
Date/Time of Note Date/Time of Note DATE: 11/04/16 TIME: 14:04 Assessment/Plan Assessment/Plan Chief Complaint/Hosp Course SUBJECTIVE DATA: No acute changes overnight. The patient is alert, looks comfortable. Denies pain. No fevers. MICROBIOLOGY: Urine culture growing VRE INDWELLINGS: Trach, PEG, suprapubic catheter. ANTIMICROBIALS: Zyvox #4, s/p Fosfomycin dose PHYSICAL EXAMINATION: GENERAL: Well developed, chronically ill-appearing, middle-aged, quadriplegic man, who is in no distress. HEENT: Head atraumatic, normocephalic. Sclerae anicteric. Buccal mucosa dry. NECK: Supple. Tracheostomy present. CHEST: Chest rise symmetrical. Breath sounds diminished to bases. HEART: S1, S2. ABDOMEN: Soft, bowel sounds present. EXTREMITIES: Without cyanosis, wasted. ASSESSMENT: 1. Status post septic shock/PNA. 2. VRE UTI. 3. Scabies-==> treated with Elimite and ivermectin. 4. History of right nephrectomy. 5. Status post shockwave lithotripsy with removal of old stent. 6. Multiple chronic wounds. PLAN: The patient remains stable. Continue present care, complete abx for 3 more days, f/u pulmonary/urology rec-s ?dc plan staff Problems: Consultation Date/Type/Reason Admit Date/Time Oct 21, 2016 at 15:46 Initial Consult Date 10/20/16 Type of Consultation: ID Referring Provider: JOSÉ ANTONIO MIRZA MD Exam/Review of Systems Vital Signs Vitals Vital Signs Date Time Temp Pulse Resp B/P Pulse Ox O2 Delivery O2 Flow Rate FiO2 11/04/16 13:05 98.0 78 20 108/67 100 11/04/16 13:05 50 Intake and Output 11/03/16 11/03/16 11/04/16 15:00 23:00 07:00 Intake Total 600 ml 600 ml Output Total 2200 ml 1200 ml Balance -1600 ml -600 ml Results Result Diagram: 11/03/16 0553 11/03/16 0553 Medications Medications Current Medications Dextrose (D50w Syringe) ONCE PRN IV POC BLOOD GLUCOSE <250 MG/DL; Start at 06:00 Hydromorphone HCl (Dilaudid) 1 mg Q4H PRN IV PAIN Last administered on 09:56; Admin Dose 1 MG; Start 10/20/16 at 10:00 Acetaminophen (Tylenol Liquid) 650 mg Q4H PRN GTB MILD PAIN LEVEL 1-3 Last administered on 11/01/16 06:29; Admin Dose 650 MG; Start 10/20/16 at 13:30 Ascorbic Acid (Vitamin C) 500 mg DAILY GTB Last administered on 11/04/16 08:19 ; Admin Dose 500 MG; Start 10/20/16 at 14:00 Bisacodyl (Dulcolax Supp) 10 mg Q24H PRN [place] CONSTIPATION; Start 10/20/16 at 13: 30 Enoxaparin Sodium (Lovenox) 30 mg DAILY SC ; Start 10/21/16 at 09:00; Status Future Hold Magnesium Hydroxide (Milk Of Mag) 30 ml DAILY PRN GTB CONSTIPATION; Start 10/20 at 13:30 Polyethylene Glycol (Miralax) 17 gm DAILY GTB Last administered on 11/01/16 20 :24; Admin Dose 17 GM; Start 10/20/16 at 13:30 Zinc Sulfate (Zinc Sulfate) 220 mg DAILY GTB Last administered on 11/04/16 08: 19; Admin Dose 220 MG; Start 10/21/16 at 09:00 Multivit/Ca Carb/ B Cmplx/FA/Prenat ([place]ilibeth-L[place]) 1 tab DAILY GTB Last administered on 11/04/16 08:19; Admin Dose 1 TAB; Start 10/21/16 at 09:00 Acetaminophen/ Hydrocodone Bitart ([place] (5/325)) 1 tab Q6 PRN GTB PAIN LEVEL 1 -5 Last administered on 11/04/16 08:27; Admin Dose 1 TAB; Start 10/20/16 at 14: 00 Ferrous Sulfate (Feosol Liquid Cup) 300 mg DAILY GTB Last administered on 08:19; Admin Dose 300 MG; Start 10/20/16 at 14:07 [facility] This patient noriega... PRN PRN XX WOUND CARE; Start 10/20/16 at 20:00 Zolpidem Tartrate (Ambien) 5 mg HS PRN PO INSOMNIA Last administered on 20:51; Admin Dose 5 MG; Start 10/20/16 at 21:00 Mupirocin (Bactroban) 1 applic BID TOP Last administered on 11/04/16 08:20; Admin Dose 1 APPLIC; Start 10/22/16 at 21:00 Collagenase (Santyl) 1 applic DAILY TOP Last administered on 11/04/16 08:20; Admin Dose 1 APPLIC; Start 11/02/16 at 09:00 Linezolid (Zyvox) 600 mg BID PO Last administered on 11/04/16 08:19; Admin Dose 600 MG; Start 11/01/16 at 10:30 Citric Acid/ Sodium Citrate (Bicitra Liquid (Ped)) 10 meq TID PO Last administered on 11/04/16 08:20; Admin Dose 10 MEQ; Start 11/03/16 at 09:00 Docusate Sodium (Colace Liquid Cup) 200 mg QHS PO ; Start 11/03/16 at 21:00 Gabapentin (Neurontin Liquid) 100 mg TID PO Last administered on 11/04/16 08: 20; Admin Dose 100 MG; Start 11/03/16 at 09:00 Risperidone (Risperdal) 1 mg QHS PO Last administered on 11/03/16 20:51; Admin Dose 1 MG; Start 11/03/16 at 21:00 Lansoprazole (Prevacid) 30 mg DAILY@06 PO Last administered on 11/04/16 06:12 ; Admin Dose 30 MG; Start 11/03/16 at 06:00 REGINALDO CHERY NP Nov 04, 2016 14:05
--- NOTE | 2016-11-04 18:11 | CONS ---
Date/Time of Note Date/Time of Note DATE: 11/04/16 TIME: 18:10 Assessment/Plan Assessment/Plan Additional Assessment/Plan 1. Acute kidney injury secondary to severe prerenal azotemia and possible acute tubular necrosis. 2. Acute uremia with a BUN of 46, Cr 1.42 on admission 3. Acute hyperkalemia- resolved 5. 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 6. History of neurogenic bladder with urinary retention, status post suprapubic catheter. 7. History of previous recurrent urinary tract infections. 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 10. Other medical history includes anxiety, depression, bipolar disorder, psychosis. 11. History of right nephrectomy with left renal nephrolithiasis and a left renal cyst measuring 5.3 cm in size. 12. Hyperkalemia Plan: - K normal, Cr 1.6 yesterday, no labs today to reiview yet - BP stable - IV abx as per ID, renally dose all abx and Monitor electrolytes. - will follow up Consultation Date/Type/Reason Admit Date/Time Oct 21, 2016 at 15:46 Initial Consult Date 10/20/16 Type of Consultation: NEPHROLOGY Referring Provider: JOSÉ ANTONIO MIRZA MD 24 HR Interval Summary Free Text/Dictation no lab stoday, yesterday Cr 1.6, K normal Exam/Review of Systems Vital Signs Vitals Vital Signs Date Time Temp Pulse Resp B/P Pulse Ox O2 Delivery O2 Flow Rate FiO2 11/04/16 17:15 85 30 95 45 11/04/16 15:44 98.0 110/65 Intake and Output 11/03/16 11/03/16 11/04/16 15:00 23:00 07:00 Intake Total 600 ml 600 ml Output Total 2200 ml 1200 ml Balance -1600 ml -600 ml Exam Constitutional: alert ENMT: nl external ears & nose, other (+ tracheostomy on ventilator ) Respiratory: clear to auscultation, crackles/rales Cardiovascular: nl pulses, regular rate and rhythm Gastrointestinal: non-tender, other (+ G tube placement ), soft Musculoskeletal: quadruplegic Results Result Diagram: 11/03/16 0553 11/03/16 0553 Medications Medications Current Medications Dextrose (D50w Syringe) ONCE PRN IV POC BLOOD GLUCOSE <250 MG/DL; Start at 06:00 Hydromorphone HCl (Dilaudid) 1 mg Q4H PRN IV PAIN Last administered on 17:55; Admin Dose 1 MG; Start 10/20/16 at 10:00 Acetaminophen (Tylenol Liquid) 650 mg Q4H PRN GTB MILD PAIN LEVEL 1-3 Last administered on 11/01/16 06:29; Admin Dose 650 MG; Start 10/20/16 at 13:30 Ascorbic Acid (Vitamin C) 500 mg DAILY GTB Last administered on 11/04/16 08:19 ; Admin Dose 500 MG; Start 10/20/16 at 14:00 Bisacodyl (Dulcolax Supp) 10 mg Q24H PRN [place] CONSTIPATION; Start 10/20/16 at 13: 30 Enoxaparin Sodium (Lovenox) 30 mg DAILY SC ; Start 10/21/16 at 09:00; Status Future Hold Magnesium Hydroxide (Milk Of Mag) 30 ml DAILY PRN GTB CONSTIPATION; Start 10/20 at 13:30 Polyethylene Glycol (Miralax) 17 gm DAILY GTB Last administered on 11/01/16 20 :24; Admin Dose 17 GM; Start 10/20/16 at 13:30 Zinc Sulfate (Zinc Sulfate) 220 mg DAILY GTB Last administered on 11/04/16 08: 19; Admin Dose 220 MG; Start 10/21/16 at 09:00 Multivit/Ca Carb/ B Cmplx/FA/Prenat (Lilibeth-L[place]) 1 tab DAILY GTB Last administered on 11/04/16 08:19; Admin Dose 1 TAB; Start 10/21/16 at 09:00 Acetaminophen/ Hydrocodone Bitart ([place] (5/325)) 1 tab Q6 PRN GTB PAIN LEVEL 1 -5 Last administered on 11/04/16 08:27; Admin Dose 1 TAB; Start 10/20/16 at 14: 00 Ferrous Sulfate (Feosol Liquid Cup) 300 mg DAILY GTB Last administered on 08:19; Admin Dose 300 MG; Start 10/20/16 at 14:07 Misc[facility] This patient noriega... PRN PRN XX WOUND CARE; Start 10/20/16 at 20:00 Zolpidem Tartrate (Ambien) 5 mg HS PRN PO INSOMNIA Last administered on 20:51; Admin Dose 5 MG; Start 10/20/16 at 21:00 Mupirocin (Bactroban) 1 applic BID TOP Last administered on 11/04/16 08:20; Admin Dose 1 APPLIC; Start 10/22/16 at 21:00 Collagenase (Santyl) 1 applic DAILY TOP Last administered on 11/04/16 08:20; Admin Dose 1 APPLIC; Start 11/02/16 at 09:00 Linezolid (Zyvox) 600 mg BID PO Last administered on 11/04/16 08:19; Admin Dose 600 MG; Start 11/01/16 at 10:30 Citric Acid/ Sodium Citrate (Bicitra Liquid (Ped)) 10 meq TID PO Last administered on 11/04/16 15:47; Admin Dose 10 MEQ; Start 11/03/16 at 09:00 Docusate Sodium (Colace Liquid Cup) 200 mg QHS PO ; Start 11/03/16 at 21:00 Gabapentin (Neurontin Liquid) 100 mg TID PO Last administered on 11/04/16 14: 05; Admin Dose 100 MG; Start 11/03/16 at 09:00 Risperidone (Risperdal) 1 mg QHS PO Last administered on 11/03/16 20:51; Admin Dose 1 MG; Start 11/03/16 at 21:00 Lansoprazole (Prevacid) 30 mg DAILY@06 PO Last administered on 11/04/16 06:12 ; Admin Dose 30 MG; Start 11/03/16 at 06:00 TIARA CISNEROS MD Nov 04, 2016 18:11
--- NOTE | 2016-11-04 20:08 | PN ---
Date/Time of Note Date/Time of Note DATE: 11/04/16 TIME: 20:07 Assessment/Plan VTE Prophylaxis VTE Prophylaxis Intervention: SCD's Lines/Catheters [facility]from [facility] PICC Line Central line still needed: Yes Urinary Cath still in place: Yes Reason Cath still needed: urinary retention Assessment/Plan Chief Complaint/Hosp Course No acute events overnight, patient remains hemodynamically stable anticipate discharge to longterm facility when bed is available, continue Zyvox for 1 more week. Assessment/Plan - Hyperkalemia, resolved - VRE in urine, started on Zyvox. - Possible scabies, continue on Elimite - Sepsis due to HCAP, urinary tract infection, resolving. Dr. Maciel is following in infection disease consultation. Continue antibiotics per ID. - Neurogenic bladder with suprapubic catheter. - Left renal nephrolithiasis, Dr Marquez is following in urology consultation. S /p lithotripsy and movable of a left ureteral JJ stent by Dr. Marquez 10/29. - Acute kidney injury on chronic kidney disease. Continue to monitor renal function. - Status post right nephrectomy - Ventilator-dependent respiratory failure with tracheostomy. - Dysphagia with percutaneous endoscopic gastrostomy tube. - Multiple decubitus ulcers present on admission. - Cervical spine injury with paraplegia. - Bipolar disorder with psychosis. Further recommendations based on clinical course. Plan of care discussed with Dr. Barreto. Problems: Exam/Review of Systems Vital Signs Vitals Vital Signs Date Time Temp Pulse Resp B/P Pulse Ox O2 Delivery O2 Flow Rate FiO2 11/04/16 19:24 74 30 98 45 11/04/16 15:44 98.0 110/65 Intake and Output 11/03/16 11/03/16 11/04/16 15:00 23:00 07:00 Intake Total 600 ml 600 ml Output Total 2200 ml 1200 ml Balance -1600 ml -600 ml Exam Constitutional: alert Neck: other (Urostomy), supple Respiratory: diminished breath sounds Cardiovascular: nl pulses, regular rate and rhythm Gastrointestinal: non-tender, other (G-tube), soft Extremities: normal pulses Skin: other (multiple decubitus ulcers) Results Result Diagram: 11/03/16 0553 11/03/16 0553 Medications Medications Current Medications Dextrose (D50w Syringe) ONCE PRN IV POC BLOOD GLUCOSE <250 MG/DL; Start at 06:00 Hydromorphone HCl (Dilaudid) 1 mg Q4H PRN IV PAIN Last administered on 17:55; Admin Dose 1 MG; Start 10/20/16 at 10:00 Acetaminophen (Tylenol Liquid) 650 mg Q4H PRN GTB MILD PAIN LEVEL 1-3 Last administered on 11/01/16 06:29; Admin Dose 650 MG; Start 10/20/16 at 13:30 Ascorbic Acid (Vitamin C) 500 mg DAILY GTB Last administered on 11/04/16 08:19 ; Admin Dose 500 MG; Start 10/20/16 at 14:00 Bisacodyl (Dulcolax Supp) 10 mg Q24H PRN [place] CONSTIPATION; Start 10/20/16 at 13: 30 Enoxaparin Sodium (Lovenox) 30 mg DAILY SC ; Start 10/21/16 at 09:00; Status Future Hold Magnesium Hydroxide (Milk Of Mag) 30 ml DAILY PRN GTB CONSTIPATION; Start 10/20 at 13:30 Polyethylene Glycol (Miralax) 17 gm DAILY GTB Last administered on 11/01/16 20 :24; Admin Dose 17 GM; Start 10/20/16 at 13:30 Zinc Sulfate (Zinc Sulfate) 220 mg DAILY GTB Last administered on 11/04/16 08: 19; Admin Dose 220 MG; Start 10/21/16 at 09:00 Multivit/Ca Carb/ B Cmplx/FA/Prenat (Lilibeth-Linn) 1 tab DAILY GTB Last administered on 11/04/16 08:19; Admin Dose 1 TAB; Start 10/21/16 at 09:00 Acetaminophen/ Hydrocodone Bitart ([place] (5/325)) 1 tab Q6 PRN GTB PAIN LEVEL 1 -5 Last administered on 11/04/16 08:27; Admin Dose 1 TAB; Start 10/20/16 at 14: 00 Ferrous Sulfate (Feosol Liquid Cup) 300 mg DAILY GTB Last administered on 08:19; Admin Dose 300 MG; Start 10/20/16 at 14:07 Miscellaneous Information (Pending [facility] Order For Wound Care) This patient noriega... PRN PRN XX WOUND CARE; Start 10/20/16 at 20:00 Zolpidem Tartrate (Ambien) 5 mg HS PRN PO INSOMNIA Last administered on 20:51; Admin Dose 5 MG; Start 10/20/16 at 21:00 Mupirocin (Bactroban) 1 applic BID TOP Last administered on 11/04/16 08:20; Admin Dose 1 APPLIC; Start 10/22/16 at 21:00 Collagenase (Santyl) 1 applic DAILY TOP Last administered on 11/04/16 08:20; Admin Dose 1 APPLIC; Start 11/02/16 at 09:00 Linezolid (Zyvox) 600 mg BID PO Last administered on 11/04/16 08:19; Admin Dose 600 MG; Start 11/01/16 at 10:30 Citric Acid/ Sodium Citrate (Bicitra Liquid (Ped)) 10 meq TID PO Last administered on 11/04/16 15:47; Admin Dose 10 MEQ; Start 11/03/16 at 09:00 Docusate Sodium (Colace Liquid Cup) 200 mg QHS PO ; Start 11/03/16 at 21:00 Gabapentin (Neurontin Liquid) 100 mg TID PO Last administered on 11/04/16 14: 05; Admin Dose 100 MG; Start 11/03/16 at 09:00 Risperidone (Risperdal) 1 mg QHS PO Last administered on 11/03/16 20:51; Admin Dose 1 MG; Start 11/03/16 at 21:00 Lansoprazole (Prevacid) 30 mg DAILY@06 PO Last administered on 11/04/16 06:12 ; Admin Dose 30 MG; Start 11/03/16 at 06:00 AISSATOU DUNCAN Nov 04, 2016 20:08
[2016-11-04] MEDS: RISPERIDONE 1 MG TAB PO SCH (21:00)
[2016-11-04] MEDS: ZOLPIDEM 5 MG TAB PO PRN (21:01)
[2016-11-04] MEDS: DOCUSATE SODIUM 10 MG/ML (10ML CUP) PO SCH (21:01)
[2016-11-05] VITALS (24 sets, daily range): BP systolic 113–129; BP diastolic 73–82; PULSE 75–92; RESP 16–31
[2016-11-05] MEDS: IPRATROPIUM (HFA) 12.9 GM INHALER INH SCH ×4 (01:18→20:30)
[2016-11-05] MEDS: LEVALBUTEROL (HFA) 15 GM INHALER INH SCH ×4 (01:18→20:29)
[2016-11-05] MEDS: HYDROmorphONE 1 MG/ML SYG IV PRN ×5 (01:50→21:08)
[2016-11-05] MEDS: LANSOPRAZOLE 30 MG CAP PO SCH (05:31)
[2016-11-05] MEDS: ZYVOX 600 MG TAB PO SCH ×2 (08:45→20:36)
[2016-11-05] MEDS: CITRIC ACID/NA CIT (1 MEQ/ML POSYG) PO SCH ×3 (08:45→20:35)
[2016-11-05] MEDS: ZINC SULFATE 220 MG CAP GTB SCH (08:45)
[2016-11-05] MEDS: FERROUS SULFATE 60 MG/ML 5ML CUP GTB SCH (08:45)
[2016-11-05] MEDS: MULTIVIT/CA CARB/B CMPLX/FA TAB GTB SCH (08:46)
[2016-11-05] MEDS: POLYETHYLENE GLYCOL 17 GM PACKET GTB SCH (08:46)
[2016-11-05] MEDS: ASCORBIC ACID 500 MG TAB GTB SCH (08:46)
[2016-11-05] MEDS: GABAPENTIN (50 MG/ML PO SYG) PO SCH ×3 (08:46→20:36)
[2016-11-05] MEDS: MUPIROCIN 2% 22 GM OINT TOP SCH ×2 (08:49→20:36)
[2016-11-05] MEDS: COLLAGENASE 30 GM TUBE TOP SCH (08:50)
--- NOTE | 2016-11-05 10:12 | PN ---
DATE: 11/04/2016 SUBJECTIVE DATA: The patient's condition is stable. He is breathing comfortably with ventilator support. He is fully awake, alert and able to talk through tracheostomy. OBJECTIVE DATA: VITAL SIGNS: He had slight temperature rise going up to 99.8, around midnight. This morning his temperature is down to normal 98. Blood pressure, blood pressure 104/58, pulse rate is 100, respirations 20. Pulse oximetry 99 percent saturation. NECK: Tracheal secretions are clear. No bleeding is seen. HEART: Heart, regular rhythm. CHEST: Chest breath sounds are diminished in both lower lung tierney, with a few intermittent rales and rhonchi. ABDOMEN: Abdomen is soft, not distended. Tolerating gastrostomy tube feedings. No vomiting is reported. Bowel sounds are normally heard. EXTREMITIES: Extremities show no edema. He is paraplegic in both the lower extremities. IMPRESSION: 1. Chronic ventilator-dependent respiratory failure. 2. Urinary tract infection with vancomycin-resistant Enterococcus. 3. Chronic kidney disease. 4. Nephrolithiasis, status post-lithotripsy. 5. Chronic anemia. 6. Chronic bilateral pleural effusions. 7. Paraplegia secondary to spinal cord injury. PLAN: 1. Continue with ventilator support. 2. Continue antibiotics per Infectious Disease. 3. Continue bronchodilator inhalation therapy. 4. Continue oral feedings as tolerated. Dictated By: Palmer Ames MD /sera/shane /Document#: [id number]
--- NOTE | 2016-11-05 11:40 | PN ---
Date/Time of Note Date/Time of Note DATE: 11/05/16 TIME: 11:39 Assessment/Plan VTE Prophylaxis VTE Prophylaxis Intervention: other Lines/Catheters IV Catheter Type (from Nrs): PICC Line Central line still needed: Yes Urinary Cath still in place: Yes Reason Cath still needed: skin wounds contaminated by urine Assessment/Plan Chief Complaint/Hosp Course - Hyperkalemia, resolved - VRE in urine, started on Zyvox. - Possible scabies, continue on Elimite - Sepsis due to HCAP, urinary tract infection, resolving. Dr. Maciel is following in infection disease consultation. Continue antibiotics per ID. - Neurogenic bladder with suprapubic catheter. - Left renal nephrolithiasis, Dr Marquez is following in urology consultation. S /p lithotripsy and movable of a left ureteral JJ stent by Dr. Marquez 10/29. - Acute kidney injury on chronic kidney disease. Continue to monitor renal function. - Status post right nephrectomy - Ventilator-dependent respiratory failure with tracheostomy. - Dysphagia with percutaneous endoscopic gastrostomy tube. - Multiple decubitus ulcers present on admission. - Cervical spine injury with paraplegia. - Bipolar disorder with psychosis. Problems: Subjective 24 Hr Interval Summary Free Text/Dictation Patient resting, trach in place Exam/Review of Systems Vital Signs Vitals Vital Signs Date Time Temp Pulse Resp B/P Pulse Ox O2 Delivery O2 Flow Rate FiO2 11/05/16 11:38 98.0 79 18 129/80 99 11/05/16 11:04 45 Intake and Output 11/04/16 11/04/16 11/05/16 15:00 23:00 07:00 Intake Total 100 ml 800 ml Output Total 1200 ml 2000 ml Balance -1100 ml -1200 ml Exam Constitutional: well developed Head: atraumatic, normocephalic Neck: supple Respiratory: diminished breath sounds Cardiovascular: regular rate and rhythm Gastrointestinal: non-tender, soft Extremities: normal pulses Results Result Diagram: 11/03/16 0553 11/03/16 0553 Medications Medications Current Medications Dextrose (D50w Syringe) ONCE PRN IV POC BLOOD GLUCOSE <250 MG/DL; Start at 06:00 Hydromorphone HCl (Dilaudid) 1 mg Q4H PRN IV PAIN Last administered on t 08:45; Admin Dose 1 MG; Start 10/20/16 at 10:00 Acetaminophen (Tylenol Liquid) 650 mg Q4H PRN GTB MILD PAIN LEVEL 1-3 Last administered on 11/01/16 06:29; Admin Dose 650 MG; Start 10/20/16 at 13:30 Ascorbic Acid (Vitamin C) 500 mg DAILY GTB Last administered on 11/05/16 08:46 ; Admin Dose 500 MG; Start 10/20/16 at 14:00 Bisacodyl (Dulcolax Supp) 10 mg Q24H PRN [place] CONSTIPATION; Start 10/20/16 at 13: 30 Enoxaparin Sodium (Lovenox) 30 mg DAILY SC ; Start 10/21/16 at 09:00; Status Future Hold Magnesium Hydroxide (Milk Of Mag) 30 ml DAILY PRN GTB CONSTIPATION; Start 10/20 at 13:30 Polyethylene Glycol (Miralax) 17 gm DAILY GTB Last administered on 11/05/16 08 :46; Admin Dose 17 GM; Start 10/20/16 at 13:30 Zinc Sulfate (Zinc Sulfate) 220 mg DAILY GTB Last administered on 11/05/16 08: 45; Admin Dose 220 MG; Start 10/21/16 at 09:00 Multivit/Ca Carb/ B Cmplx/FA/Prenat (Lilibeth-Linn) 1 tab DAILY GTB Last administered on 11/05/16 08:46; Admin Dose 1 TAB; Start 10/21/16 at 09:00 Acetaminophen/ Hydrocodone Bitart ([place] (5/325)) 1 tab Q6 PRN GTB PAIN LEVEL 1 -5 Last administered on 11/04/16 08:27; Admin Dose 1 TAB; Start 10/20/16 at 14: 00 Ferrous Sulfate (Feosol Liquid Cup) 300 mg DAILY GTB Last administered on 08:45; Admin Dose 300 MG; Start 10/20/16 at 14:07 Miscellaneous Information (Pending Santyl Order For Wound Care) This patient noriega... PRN PRN XX WOUND CARE; Start 10/20/16 at 20:00 Zolpidem Tartrate (Ambien) 5 mg HS PRN PO INSOMNIA Last administered on 21:01; Admin Dose 5 MG; Start 10/20/16 at 21:00 Mupirocin (Bactroban) 1 applic BID TOP Last administered on 11/05/16 08:49; Admin Dose 1 APPLIC; Start 10/22/16 at 21:00 Collagenase (Santyl) 1 applic DAILY TOP Last administered on 11/05/16 08:50; Admin Dose 1 APPLIC; Start 11/02/16 at 09:00 Linezolid (Zyvox) 600 mg BID PO Last administered on 11/05/16 08:45; Admin Dose 600 MG; Start 11/01/16 at 10:30 Citric Acid/ Sodium Citrate (Bicitra Liquid (Ped)) 10 meq TID PO Last administered on 11/05/16 08:45; Admin Dose 10 MEQ; Start 11/03/16 at 09:00 Docusate Sodium (Colace Liquid Cup) 200 mg QHS PO Last administered on 21:01; Admin Dose 200 MG; Start 11/03/16 at 21:00 Gabapentin (Neurontin Liquid) 100 mg TID PO Last administered on 11/05/16 08: 46; Admin Dose 100 MG; Start 11/03/16 at 09:00 Risperidone (Risperdal) 1 mg QHS PO Last administered on 11/04/16 21:00; Admin Dose 1 MG; Start 11/03/16 at 21:00 Lansoprazole (Prevacid) 30 mg DAILY@06 PO Last administered on 11/04/16 06:12 ; Admin Dose 30 MG; Start 11/03/16 at 06:00 DANAY MUIR Nov 05, 2016 11:40
--- NOTE | 2016-11-05 11:48 | CONS ---
Date/Time of Note Date/Time of Note DATE: 11/05/16 TIME: 11:47 Assessment/Plan Assessment/Plan Chief Complaint/Hosp Course ID PROGRESS NOTE TOTAL ABX DAY # CURRENT ABX=> Zyvox #5, s/p Fosfomycin x1 24H INTERVAL SUMMARY * No new issues, sleeping, VSS, looks comfortable EXAM GENERAL: 41 yo M, A/A/O, VSS, NAD HEENT: Unremarkable NECK: (+)Trach-> secure to Vent CHEST: Course ABDOMEN: Soft, NT EXTREMITIES: WArm, no edema SKIN: No diaphoresis, no rash ID ASSESSMENT: 41 yo M w/ PMHx SCI with paraplegia, chronic trach, neurogenic bladder admit [facility] ICU with: 1. s/p Sepsis possibly secondary to HCAP @ SNF + VRE urinary tract infection => RESOLVED 2. Worsening aeration of the lung bases, likely due to bilateral pleural effusions, right greater than left. 3. Chronic VDRF 4. Acute on chronic kidney disease w/Hyperkalemia on admission = resolved 5. Hx of right nephrectomy with left renal nephrolithiasis and a left renal cyst measuring 5.3 cm in size. 6. (+)VRE UTI 7. Suprapubic catheter -> due to neurogenic bladder + #5 8. History of obstructive uropathy status post JJ stent placement on the left. * Status post shockwave lithotripsy with removal of old stent. 9. Multiple Decubs -> See chart photos 10. Rash=> (+)Scabies treated with Elimite and ivermectin. -- Positive for Sarcoptes scabiei parasitic organisms. (+)MRSA Nares -> Bactroban INVASIVES: Peg, trach, PI:V, suprapubic ABX ALLERGY: Tetracycline TOTAL ABX DAY # CURRENT ABX=>> Zyvox #5, s/p Fosfomycin x1 ID PLAN 1. Continue current ABX over the weekend 2. ID team colleague will follow up Monday for length of ABX course recs. Problems: Consultation Date/Type/Reason Admit Date/Time Oct 21, 2016 at 15:46 Initial Consult Date 10/20/16 Type of Consultation: ID Referring Provider: JOSÉ ANTONIO MIRZA MD Exam/Review of Systems Vital Signs Vitals Vital Signs Date Time Temp Pulse Resp B/P Pulse Ox O2 Delivery O2 Flow Rate FiO2 9/30/17 11:38 98.0 79 18 129/80 99 11/05/16 11:04 45 Intake and Output 11/04/16 11/04/16 11/05/16 15:00 23:00 07:00 Intake Total 100 ml 800 ml Output Total 1200 ml 2000 ml Balance -1100 ml -1200 ml Results Result Diagram: 11/03/16 0553 11/03/16 0553 Medications Medications Current Medications Dextrose (D50w Syringe) ONCE PRN IV POC BLOOD GLUCOSE <250 MG/DL; Start at 06:00 Hydromorphone HCl (Dilaudid) 1 mg Q4H PRN IV PAIN Last administered on 08:45; Admin Dose 1 MG; Start 10/20/16 at 10:00 Acetaminophen (Tylenol Liquid) 650 mg Q4H PRN GTB MILD PAIN LEVEL 1-3 Last administered on 11/01/16 06:29; Admin Dose 650 MG; Start 10/20/16 at 13:30 Ascorbic Acid (Vitamin C) 500 mg DAILY GTB Last administered on 11/05/16 08:46 ; Admin Dose 500 MG; Start 10/20/16 at 14:00 Bisacodyl (Dulcolax Supp) 10 mg Q24H PRN [place] CONSTIPATION; Start 10/20/16 at 13: 30 Enoxaparin Sodium (Lovenox) 30 mg DAILY SC ; Start 10/21/16 at 09:00; Status Future Hold Magnesium Hydroxide (Milk Of Mag) 30 ml DAILY PRN GTB CONSTIPATION; Start 10/20 at 13:30 Polyethylene Glycol (Miralax) 17 gm DAILY GTB Last administered on 11/05/16 08 :46; Admin Dose 17 GM; Start 10/20/16 at 13:30 Zinc Sulfate (Zinc Sulfate) 220 mg DAILY GTB Last administered on 11/05/16 08: 45; Admin Dose 220 MG; Start 10/21/16 at 09:00 Multivit/Ca Carb/ B Cmplx/FA/Prenat (Lilibeth-Linn) 1 tab DAILY GTB Last administered on 11/05/16 08:46; Admin Dose 1 TAB; Start 10/21/16 at 09:00 Acetaminophen/ Hydrocodone Bitart ([place] (5/325)) 1 tab Q6 PRN GTB PAIN LEVEL 1 -5 Last administered on 11/04/16 08:27; Admin Dose 1 TAB; Start 10/20/16 at 14: 00 Ferrous Sulfate (Feosol Liquid Cup) 300 mg DAILY GTB Last administered on 08:45; Admin Dose 300 MG; Start 10/20/16 at 14:07 Miscellaneous Information (Pending Santyl Order For Wound Care) This patient noriega... PRN PRN XX WOUND CARE; Start 10/20/16 at 20:00 Zolpidem Tartrate (Ambien) 5 mg HS PRN PO INSOMNIA Last administered on 21:01; Admin Dose 5 MG; Start 10/20/16 at 21:00 Mupirocin (Bactroban) 1 applic BID TOP Last administered on 11/05/16 08:49; Admin Dose 1 APPLIC; Start 10/22/16 at 21:00 Collagenase (Santyl) 1 applic DAILY TOP Last administered on 11/05/16 08:50; Admin Dose 1 APPLIC; Start 11/02/16 at 09:00 Linezolid (Zyvox) 600 mg BID PO Last administered on 11/05/16 08:45; Admin Dose 600 MG; Start 11/01/16 at 10:30 Citric Acid/ Sodium Citrate (Bicitra Liquid (Ped)) 10 meq TID PO Last administered on 11/05/16 08:45; Admin Dose 10 MEQ; Start 11/03/16 at 09:00 Docusate Sodium (Colace Liquid Cup) 200 mg QHS PO Last administered on 21:01; Admin Dose 200 MG; Start 11/03/16 at 21:00 Gabapentin (Neurontin Liquid) 100 mg TID PO Last administered on 11/05/16 08: 46; Admin Dose 100 MG; Start 11/03/16 at 09:00 Risperidone (Risperdal) 1 mg QHS PO Last administered on 11/04/16 21:00; Admin Dose 1 MG; Start 11/03/16 at 21:00 Lansoprazole (Prevacid) 30 mg DAILY@06 PO Last administered on 11/04/16 06:12 ; Admin Dose 30 MG; Start 11/03/16 at 06:00 KELSI CERDA NP Nov 05, 2016 11:48 17at 21:01; Admin Dose 200 MG; Start 11/03/16 at 21:00 Gabapentin (Neurontin Liquid) 100 mg TID PO Last administered on 11/05/16 08: 46; Admin Dose 100 MG; Start 11/03/16 at 09:00 Risperidone (Risperdal) 1 mg QHS PO Last administered on 11/04/16 21:00; Admin Dose 1 MG; Start 11/03/16 at 21:00 Lansoprazole (Prevacid) 30 mg DAILY@06 PO Last administered on 11/04/16 06:12 ; Admin Dose 30 MG; Start 11/03/16 at 06:00 KELSI CERDA NP Nov 05, 2016 11:48
--- NOTE | 2016-11-05 13:04 | CONS ---
Date/Time of Note Date/Time of Note DATE: 11/05/16 TIME: 13:02 Assessment/Plan Assessment/Plan Additional Assessment/Plan 1. Acute kidney injury secondary to severe prerenal azotemia and possible acute tubular necrosis. 2. Acute uremia with a BUN of 46, Cr 1.42 on admission 3. Acute hyperkalemia- resolved 5. 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 6. History of neurogenic bladder with urinary retention, status post suprapubic catheter. 7. History of previous recurrent urinary tract infections. 8. 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 9. 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 10. Other medical history includes anxiety, depression, bipolar disorder, psychosis. 11. History of right nephrectomy with left renal nephrolithiasis and a left renal cyst measuring 5.3 cm in size. 12. Anemia- Transfuse PRN, am CBC Plan: - K normal, Cr 1.6 , no labs today to review yet - BP stable - IV abx as per ID, renally dose all abx and Monitor electrolytes. - will follow up Consultation Date/Type/Reason Admit Date/Time Oct 21, 2016 at 15:46 Initial Consult Date 10/20/16 Type of Consultation: NEPHROLOGY Referring Provider: JOSÉ ANTONIO MIRZA MD 24 HR Interval Summary Free Text/Dictation no labs today, 11/03- Cr 1.6, K normal Constitutional: requiring IVF, requiring O2 Detailed Summary Respiratory: no complaints Gastrointestinal: no complaints Genitourinary: no complaints Musculoskeletal: no complaints Exam/Review of Systems Vital Signs Vitals Vital Signs Date Time Temp Pulse Resp B/P Pulse Ox O2 Delivery O2 Flow Rate FiO2 11/05/16 11:38 98.0 79 18 129/80 99 11/05/16 11:04 45 Intake and Output 11/04/16 11/04/16 11/05/16 15:00 23:00 07:00 Intake Total 100 ml 800 ml Output Total 1200 ml 2000 ml Balance -1100 ml -1200 ml Exam Constitutional: alert, well developed Respiratory: diminished breath sounds, normal air movement Cardiovascular: nl pulses, regular rate and rhythm Gastrointestinal: non-tender, soft Musculoskeletal: muscle weakness Extremities: normal pulses Results Result Diagram: 11/03/16 0553 11/03/16 0553 Medications Medications Current Medications Dextrose (D50w Syringe) ONCE PRN IV POC BLOOD GLUCOSE <250 MG/DL; Start at 06:00 Hydromorphone HCl (Dilaudid) 1 mg Q4H PRN IV PAIN Last administered on 12:56; Admin Dose 1 MG; Start 10/20/16 at 10:00 Acetaminophen (Tylenol Liquid) 650 mg Q4H PRN GTB MILD PAIN LEVEL 1-3 Last administered on 11/01/16 06:29; Admin Dose 650 MG; Start 10/20/16 at 13:30 Ascorbic Acid (Vitamin C) 500 mg DAILY GTB Last administered on 11/05/16 08:46 ; Admin Dose 500 MG; Start 10/20/16 at 14:00 Bisacodyl (Dulcolax Supp) 10 mg Q24H PRN [place] CONSTIPATION; Start 10/20/16 at 13: 30 Enoxaparin Sodium (Lovenox) 30 mg DAILY SC ; Start 10/21/16 at 09:00; Status Future Hold Magnesium Hydroxide (Milk Of Mag) 30 ml DAILY PRN GTB CONSTIPATION; Start 10/20 at 13:30 Polyethylene Glycol (Miralax) 17 gm DAILY GTB Last administered on 11/05/16 08 :46; Admin Dose 17 GM; Start 10/20/16 at 13:30 Zinc Sulfate (Zinc Sulfate) 220 mg DAILY GTB Last administered on 11/05/16 08: 45; Admin Dose 220 MG; Start 10/21/16 at 09:00 Multivit/Ca Carb/ B Cmplx/FA/Prenat (Lilibeth-Linn) 1 tab DAILY GTB Last administered on 11/05/16 08:46; Admin Dose 1 TAB; Start 10/21/16 at 09:00 Acetaminophen/ Hydrocodone Bitart ([place] (5/325)) 1 tab Q6 PRN GTB PAIN LEVEL 1 -5 Last administered on 11/04/16 08:27; Admin Dose 1 TAB; Start 10/20/16 at 14: 00 Ferrous Sulfate (Feosol Liquid Cup) 300 mg DAILY GTB Last administered on 08:45; Admin Dose 300 MG; Start 10/20/16 at 14:07 Miscellaneous Information (Pending Santyl Order For Wound Care) This patient noriega... PRN PRN XX WOUND CARE; Start 10/20/16 at 20:00 Zolpidem Tartrate (Ambien) 5 mg HS PRN PO INSOMNIA Last administered on 21:01; Admin Dose 5 MG; Start 10/20/16 at 21:00 Mupirocin (Bactroban) 1 applic BID TOP Last administered on 11/05/16 08:49; Admin Dose 1 APPLIC; Start 10/22/16 at 21:00 Collagenase (Santyl) 1 applic DAILY TOP Last administered on 11/05/16 08:50; Admin Dose 1 APPLIC; Start 11/02/16 at 09:00 Linezolid (Zyvox) 600 mg BID PO Last administered on 11/05/16 08:45; Admin Dose 600 MG; Start 11/01/16 at 10:30 Citric Acid/ Sodium Citrate (Bicitra Liquid (Ped)) 10 meq TID PO Last administered on 11/05/16 12:55; Admin Dose 10 MEQ; Start 11/03/16 at 09:00 Docusate Sodium (Colace Liquid Cup) 200 mg QHS PO Last administered on 21:01; Admin Dose 200 MG; Start 11/03/16 at 21:00 Gabapentin (Neurontin Liquid) 100 mg TID PO Last administered on 11/05/16 12: 55; Admin Dose 100 MG; Start 11/03/16 at 09:00 Risperidone (Risperdal) 1 mg QHS PO Last administered on 11/04/16 21:00; Admin Dose 1 MG; Start 11/03/16 at 21:00 Lansoprazole (Prevacid) 30 mg DAILY@06 PO Last administered on 11/04/16 06:12 ; Admin Dose 30 MG; Start 11/03/16 at 06:00 NAE VELAZCO Nov 05, 2016 13:04
--- NOTE | 2016-11-05 13:08 | PN ---
DATE: 11/05/2016 SUBJECTIVE DATA: The patient is fully awake, alert, able to talk through tracheostomy. His breathing comfortably with ventilator support. OBJECTIVE DATA: VITAL SIGNS: Are stable. Temperature 98.2, blood pressure 121/80, pulse rate of 90, respirations 20, pulse oximetry 99 percent saturation. NECK: Tracheal secretions are clear. No bleeding is seen. HEART: Regular rhythm. CHEST: Breath sounds are diminished in the lower lung tierney. Otherwise clear. ABDOMEN: Soft, not distended. He is able to eat orally. Normal bowel sounds. EXTREMITIES: Show no edema. He is paraplegic. LABORATORY AND DIAGNOSTIC DATA: No lab tests done today per nursing staff. IMPRESSION: 1. Chronic ventilator-dependent respiratory failure. 2. Urinary tract infection. Vancomycin-resistant enterococcus. 3. Chronic kidney disease. 4. Nephrolithiasis status post lithotripsy. 5. Chronic anemia. 6. Chronic bilateral pleural effusions. 7. 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 PLAN: 1. Continue long-term ventilator support. He has failed ventilator weaning trials in the past and may not be able to sustain his ventilation without ventilator support for too long. 2. Continue antibiotics per infectious disease contamination consultant. 3. Continue bronchodilator inhalation therapy. 4. Continue oral feedings as tolerated. Dictated By: Palmer Ames MD /sera/dain /Document#: [id number]
[2016-11-05] MEDS: RISPERIDONE 1 MG TAB PO SCH (20:36)
[2016-11-05] MEDS: DOCUSATE SODIUM 10 MG/ML (10ML CUP) PO SCH (20:37)
[2016-11-05] MEDS: ZOLPIDEM 5 MG TAB PO PRN (21:08)
[2016-11-06] VITALS (22 sets, daily range): BP systolic 106–140; BP diastolic 61–90; PULSE 74–98; RESP 16–33
[2016-11-06] MEDS: HYDROmorphONE 1 MG/ML SYG IV PRN ×6 (01:17→21:15)
[2016-11-06] MEDS: IPRATROPIUM (HFA) 12.9 GM INHALER INH SCH ×4 (02:11→20:23)
[2016-11-06] MEDS: LEVALBUTEROL (HFA) 15 GM INHALER INH SCH ×4 (02:11→20:23)
[2016-11-06] MEDS: LANSOPRAZOLE 30 MG CAP PO SCH (05:14)
[2016-11-06 07:08] LABS: BASOPHILS % 0.4 % (0.0-2.0); EOSINOPHILS # 0.2 10^3/ul (0.0-0.5); EOSINOPHILS % 3.9 % (0.0-7.0); HEMATOCRIT 29.2 % (42.0-52.0); LYMPHOCYTES # 0.8 10^3/ul (0.8-2.9); LYMPHOCYTES % 15.8 % (15.0-51.0); MEAN CORPUSCULAR HEMOGLOBIN 30.4 pg (29.0-33.0); MEAN CORPUSCULAR HGB CONC 30.8 g/dl (32.0-37.0); MEAN CORPUSCULAR VOLUME 98.6 fl (82.0-101.0); MEAN PLATELET VOLUME 11.6 fl (7.4-10.4); MONOCYTE # 0.4 10^3/ul (0.3-0.9); MONOCYTES % 7.6 % (0.0-11.0); NEUTROPHIL # 3.5 10^3/ul (1.6-7.5); NEUTROPHILS % 72.1 % (39.0-77.0); PLATELET COUNT 136 10^3/UL (140-415); RED BLOOD COUNT 2.96 10^6/ul (4.70-6.10); RED CELL DISTRIBUTION WIDTH 13.4 % (11.5-14.5); WHITE BLOOD COUNT 4.9 10^3/ul (4.8-10.8)
[2016-11-06 07:32] LABS: CALCIUM 9.1 mg/dl (8.4-10.2); CREATININE 1.87 mg/dl (0.61-1.24)
[2016-11-06 07:35] LABS: POTASSIUM 5.4 mmol/L (3.5-5.1)
[2016-11-06] MEDS: FERROUS SULFATE 60 MG/ML 5ML CUP GTB SCH (09:07)
[2016-11-06] MEDS: GABAPENTIN (50 MG/ML PO SYG) PO SCH ×3 (09:08→21:15)
[2016-11-06] MEDS: CITRIC ACID/NA CIT (1 MEQ/ML POSYG) PO SCH ×3 (09:08→21:15)
[2016-11-06] MEDS: ZYVOX 600 MG TAB PO SCH ×2 (09:08→21:15)
[2016-11-06] MEDS: POLYETHYLENE GLYCOL 17 GM PACKET GTB SCH (09:08)
[2016-11-06] MEDS: ZINC SULFATE 220 MG CAP GTB SCH (09:09)
[2016-11-06] MEDS: MUPIROCIN 2% 22 GM OINT TOP SCH ×2 (09:09→21:32)
[2016-11-06] MEDS: MULTIVIT/CA CARB/B CMPLX/FA TAB GTB SCH (09:09)
[2016-11-06] MEDS: ASCORBIC ACID 500 MG TAB GTB SCH (09:09)
[2016-11-06] MEDS: COLLAGENASE 30 GM TUBE TOP SCH (09:10)
--- NOTE | 2016-11-06 10:37 | PN ---
Date/Time of Note Date/Time of Note DATE: 11/06/16 TIME: 10:35 Assessment/Plan VTE Prophylaxis VTE Prophylaxis Intervention: other Lines/Catheters IV Catheter Type (from [facility]): PICC Line Central line still needed: Yes Urinary Cath still in place: Yes Reason Cath still needed: skin wounds contaminated by urine Assessment/Plan Chief Complaint/Hosp Course - Hyperkalemia, resolved - VRE in urine, started on Zyvox. - Possible scabies, continue on Elimite - Sepsis due to HCAP, urinary tract infection, resolving. Dr. Maciel is following in infection disease consultation. Continue antibiotics per ID. - Neurogenic bladder with suprapubic catheter. - Left renal nephrolithiasis, Dr Marquez is following in urology consultation. S /p lithotripsy and movable of a left ureteral JJ stent by Dr. Marquez 10/29. - Acute kidney injury on chronic kidney disease. Continue to monitor renal function. - Status post right nephrectomy - Ventilator-dependent respiratory failure with tracheostomy. - Dysphagia with percutaneous endoscopic gastrostomy tube. - Multiple decubitus ulcers present on admission. - Cervical spine injury with paraplegia. - Bipolar disorder with psychosis. Problems: Subjective 24 Hr Interval Summary Free Text/Dictation Patient doing well, trach in place Exam/Review of Systems Vital Signs Vitals Vital Signs Date Time Temp Pulse Resp B/P Pulse Ox O2 Delivery O2 Flow Rate FiO2 11/06/16 09:13 89 27 93 45 11/06/16 07:48 98.0 107/71 Intake and Output 11/05/16 11/05/16 11/06/16 15:00 23:00 07:00 Intake Total 900 ml 800 ml Output Total 1000 ml 1500 ml Balance -100 ml -700 ml Exam Constitutional: well developed Head: atraumatic, normocephalic Neck: supple Respiratory: diminished breath sounds Cardiovascular: regular rate and rhythm Gastrointestinal: non-tender, soft Extremities: normal pulses Results Result Diagram: 11/06/16 0614 11/06/16 0614 Results 24 hrs Laboratory Tests Test 11/06/16 06:14 White Blood Count 4.9 # Red Blood Count 2.96 L Hemoglobin 9.0 L Hematocrit 29.2 L Mean Corpuscular Volume 98.6 Mean Corpuscular Hemoglobin 30.4 Mean Corpuscular Hemoglobin Concent 30.8 L Red Cell Distribution Width 13.4 Platelet Count 136 L Mean Platelet Volume 11.6 H Neutrophils % 72.1 Lymphocytes % 15.8 Monocytes % 7.6 Eosinophils % 3.9 Basophils % 0.4 Nucleated Red Blood Cells % 0.0 Neutrophils # 3.5 Lymphocytes # 0.8 Monocytes # 0.4 Eosinophils # 0.2 Basophils # 0.0 Nucleated Red Blood Cells # 0.0 Sodium Level 138 Potassium Level 5.4 H Chloride Level 109 Carbon Dioxide Level 22 Anion Gap 12 Blood Urea Nitrogen 46 H Creatinine 1.87 H Glucose Level 82 Calcium Level 9.1 Medications Medications Current Medications Dextrose (D50w Syringe) ONCE PRN IV POC BLOOD GLUCOSE <250 MG/DL; Start at 06:00 Hydromorphone HCl (Dilaudid) 1 mg Q4H PRN IV PAIN Last administered on 09:10; Admin Dose 1 MG; Start 10/20/16 at 10:00 Acetaminophen (Tylenol Liquid) 650 mg Q4H PRN GTB MILD PAIN LEVEL 1-3 Last administered on 11/01/16 06:29; Admin Dose 650 MG; Start 10/20/16 at 13:30 Ascorbic Acid (Vitamin C) 500 mg DAILY GTB Last administered on 11/06/16 09:09 ; Admin Dose 500 MG; Start 10/20/16 at 14:00 Bisacodyl (Dulcolax Supp) 10 mg Q24H PRN [place] CONSTIPATION; Start 10/20/16 at 13: 30 Enoxaparin Sodium (Lovenox) 30 mg DAILY SC ; Start 10/21/16 at 09:00; Status Future Hold Magnesium Hydroxide (Milk Of Mag) 30 ml DAILY PRN GTB CONSTIPATION; Start 10/20 at 13:30 Polyethylene Glycol (Miralax) 17 gm DAILY GTB Last administered on 11/06/16 09 :08; Admin Dose 17 GM; Start 10/20/16 at 13:30 Zinc Sulfate (Zinc Sulfate) 220 mg DAILY GTB Last administered on 11/06/16 09: 09; Admin Dose 220 MG; Start 10/21/16 at 09:00 Multivit/Ca Carb/ B Cmplx/FA/Prenat (Lilibeth-Linn) 1 tab DAILY GTB Last administered on 11/06/16 09:09; Admin Dose 1 TAB; Start 10/21/16 at 09:00 Acetaminophen/ Hydrocodone Bitart ([place] (5/325)) 1 tab Q6 PRN GTB PAIN LEVEL 1 -5 Last administered on 11/04/16 08:27; Admin Dose 1 TAB; Start 10/20/16 at 14: 00 Ferrous Sulfate (Feosol Liquid Cup) 300 mg DAILY GTB Last administered on 09:07; Admin Dose 300 MG; Start 10/20/16 at 14:07 Miscellaneous Information (Pending Santyl Order For Wound Care) This patient noriega... PRN PRN XX WOUND CARE; Start 10/20/16 at 20:00 Zolpidem Tartrate (Ambien) 5 mg HS PRN PO INSOMNIA Last administered on 21:08; Admin Dose 5 MG; Start 10/20/16 at 21:00 Mupirocin (Bactroban) 1 applic BID TOP Last administered on 11/06/16 09:09; Admin Dose 1 APPLIC; Start 10/22/16 at 21:00 Collagenase (Santyl) 1 applic DAILY TOP Last administered on 11/06/16 09:10; Admin Dose 1 APPLIC; Start 11/02/16 at 09:00 Linezolid (Zyvox) 600 mg BID PO Last administered on 11/06/16 09:08; Admin Dose 600 MG; Start 11/01/16 at 10:30 Citric Acid/ Sodium Citrate (Bicitra Liquid (Ped)) 10 meq TID PO Last administered on 11/06/16 09:08; Admin Dose 10 MEQ; Start 11/03/16 at 09:00 Docusate Sodium (Colace Liquid Cup) 200 mg QHS PO Last administered on 21:01; Admin Dose 200 MG; Start 11/03/16 at 21:00 Gabapentin (Neurontin Liquid) 100 mg TID PO Last administered on 11/06/16 09: 08; Admin Dose 100 MG; Start 11/03/16 at 09:00 Risperidone (Risperdal) 1 mg QHS PO Last administered on 11/05/16 20:36; Admin Dose 1 MG; Start 11/03/16 at 21:00 Lansoprazole (Prevacid) 30 mg DAILY@06 PO Last administered on 11/06/16 05:14 ; Admin Dose 30 MG; Start 11/03/16 at 06:00 DANAY MUIR Nov 06, 2016 10:37
[2016-11-06] MEDS ORDERED: NA POLYST SULFON 15 GM/60 ML BTL PO ONE (11:00)
--- NOTE | 2016-11-06 12:14 | PN ---
DATE: 11/06/2016 SUBJECTIVE DATA: The patient is resting comfortably. He is on continuous ventilator support with tracheostomy. He has no shortness of breath. OBJECTIVE DATA: VITAL SIGNS: Stable. His temperature is 98. Blood pressure is 140/90. Pulse rate is 71. Respiratory rate is 18. Pulse oximetry shows 98 percent saturation on oxygen concentration. HEENT: Tracheal secretions are clear. No bleeding is seen. HEART: Regular rhythm. Rate in the 130s. CHEST: Breath sounds are heard bilaterally, diminished in both lower lung tierney. Otherwise clear. ABDOMEN: Soft, not distended. He is tolerating oral feedings. Bowel sounds are normally present. EXTREMITIES: Show paraplegia. No edema. LABORATORY DATA: From today, shows sodium 138, potassium 5.4, BUN 46, creatinine 1.87, calcium 9.1. The CBC shows WBC of 4900, hemoglobin 9, hematocrit 29.2. Platelets are decreased to 136,000. IMPRESSION: 1. Chronic ventilator-dependent respiratory failure. 2. Urinary tract infection with vancomycin-resistant Enterococcus. 3. Chronic kidney disease. 4. Nephrolithiasis, status post lithotripsy. 5. Chronic anemia. 6. Chronic bilateral pleural effusions. 7. 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 PLAN: 1. Continue long-term ventilator support. 2. Continue antibiotics as per the infectious disease clothing consultant. 3. Continue bronchodilator inhalation therapy. 4. Continue oral feedings as tolerated. Dictated By: Palmer Ames MD /sera/balta /Document#: [id number]
--- NOTE | 2016-11-06 15:16 | CONS ---
Date/Time of Note Date/Time of Note DATE: 11/06/16 TIME: 15:15 Assessment/Plan Assessment/Plan Chief Complaint/Hosp Course ID PROGRESS NOTE TOTAL ABX DAY # CURRENT ABX=> Zyvox #6 , s/p Fosfomycin x1 24H INTERVAL SUMMARY * Clinically no changes, -- watching TV, VSS, looks comfortable EXAM GENERAL: 41 yo M, A/A/O, VSS, NAD HEENT: Unremarkable NECK: (+)Trach-> secure to Vent CHEST: Course ABDOMEN: Soft, NT EXTREMITIES: WArm, no edema SKIN: No diaphoresis, no rash ID ASSESSMENT: 41 yo M w/ PMHx SCI with paraplegia, chronic trach, neurogenic bladder admit [facility] ICU with: 1. s/p Sepsis possibly secondary to HCAP @ SNF + VRE urinary tract infection => RESOLVED 2. Worsening aeration of the lung bases, likely due to bilateral pleural effusions, right greater than left. 3. Chronic VDRF 4. Acute on chronic kidney disease w/Hyperkalemia on admission = resolved 5. Hx of right nephrectomy with left renal nephrolithiasis and a left renal cyst measuring 5.3 cm in size. 6. (+)VRE UTI 7. Suprapubic catheter -> due to neurogenic bladder + #5 8. History of obstructive uropathy status post JJ stent placement on the left. * Status post shockwave lithotripsy with removal of old stent. 9. Multiple Decubs -> See chart photos 10. Rash=> (+)Scabies treated with Elimite and ivermectin. -- Positive for Sarcoptes scabiei parasitic organisms. (+)MRSA Nares -> Bactroban INVASIVES: Peg, trach, PI:V, suprapubic ABX ALLERGY: Tetracycline TOTAL ABX DAY # CURRENT ABX=>> Zyvox #6, s/p Fosfomycin x1 ID PLAN 1. Continue current ABX over the weekend 2. ID team colleague will follow up Monday for length of ABX course recs. Problems: Consultation Date/Type/Reason Admit Date/Time Oct 21, 2016 at 15:46 Initial Consult Date 10/20/16 Type of Consultation: ID Referring Provider: JOSÉ ANTONIO MIRZA MD Exam/Review of Systems Vital Signs Vitals Vital Signs Date Time Temp Pulse Resp B/P Pulse Ox O2 Delivery O2 Flow Rate FiO2 11/06/16 13:37 102 21 100 45 11/06/16 12:00 98.0 109/70 Intake and Output 11/05/16 11/05/16 11/06/16 15:00 23:00 07:00 Intake Total 900 ml 800 ml Output Total 1000 ml 1500 ml Balance -100 ml -700 ml Results Result Diagram: 11/06/16 0614 11/06/16 0614 Results 24 hrs Laboratory Tests Test 11/06/16 06:14 White Blood Count 4.9 # Red Blood Count 2.96 L Hemoglobin 9.0 L Hematocrit 29.2 L Mean Corpuscular Volume 98.6 Mean Corpuscular Hemoglobin 30.4 Mean Corpuscular Hemoglobin Concent 30.8 L Red Cell Distribution Width 13.4 Platelet Count 136 L Mean Platelet Volume 11.6 H Neutrophils % 72.1 Lymphocytes % 15.8 Monocytes % 7.6 Eosinophils % 3.9 Basophils % 0.4 Nucleated Red Blood Cells % 0.0 Neutrophils # 3.5 Lymphocytes # 0.8 Monocytes # 0.4 Eosinophils # 0.2 Basophils # 0.0 Nucleated Red Blood Cells # 0.0 Sodium Level 138 Potassium Level 5.4 H Chloride Level 109 Carbon Dioxide Level 22 Anion Gap 12 Blood Urea Nitrogen 46 H Creatinine 1.87 H Glucose Level 82 Calcium Level 9.1 Medications Medications Current Medications Dextrose (D50w Syringe) ONCE PRN IV POC BLOOD GLUCOSE <250 MG/DL; Start at 06:00 Hydromorphone HCl (Dilaudid) 1 mg Q4H PRN IV PAIN Last administered on 13:05; Admin Dose 1 MG; Start 10/20/16 at 10:00 Acetaminophen (Tylenol Liquid) 650 mg Q4H PRN GTB MILD PAIN LEVEL 1-3 Last administered on 11/01/16 06:29; Admin Dose 650 MG; Start 10/20/16 at 13:30 Ascorbic Acid (Vitamin C) 500 mg DAILY GTB Last administered on 11/06/16 09:09 ; Admin Dose 500 MG; Start 10/20/16 at 14:00 Bisacodyl (Dulcolax Supp) 10 mg Q24H PRN [place] CONSTIPATION; Start 10/20/16 at 13: 30 Enoxaparin Sodium (Lovenox) 30 mg DAILY SC ; Start 10/21/16 at 09:00; Status Future Hold Magnesium Hydroxide (Milk Of Mag) 30 ml DAILY PRN GTB CONSTIPATION; Start 10/20 at 13:30 Polyethylene Glycol (Miralax) 17 gm DAILY GTB Last administered on 11/06/16 09 :08; Admin Dose 17 GM; Start 10/20/16 at 13:30 Zinc Sulfate (Zinc Sulfate) 220 mg DAILY GTB Last administered on 11/06/16 09: 09; Admin Dose 220 MG; Start 10/21/16 at 09:00 Multivit/Ca Carb/ B Cmplx/FA/Prenat (Lilibeth-Linn) 1 tab DAILY GTB Last administered on 11/06/16 09:09; Admin Dose 1 TAB; Start 10/21/16 at 09:00 Acetaminophen/ Hydrocodone Bitart ([place] (5/325)) 1 tab Q6 PRN GTB PAIN LEVEL 1 -5 Last administered on 11/04/16 08:27; Admin Dose 1 TAB; Start 10/20/16 at 14: 00 Ferrous Sulfate (Feosol Liquid Cup) 300 mg DAILY GTB Last administered on 09:07; Admin Dose 300 MG; Start 10/20/16 at 14:07 Miscellaneous Information (Pending Santyl Order For Wound Care) This patient noriega... PRN PRN XX WOUND CARE; Start 10/20/16 at 20:00 Zolpidem Tartrate (Ambien) 5 mg HS PRN PO INSOMNIA Last administered on 21:08; Admin Dose 5 MG; Start 10/20/16 at 21:00 Mupirocin (Bactroban) 1 applic BID TOP Last administered on 11/06/16 09:09; Admin Dose 1 APPLIC; Start 10/22/16 at 21:00 Collagenase (Santyl) 1 applic DAILY TOP Last administered on 11/06/16 09:10; Admin Dose 1 APPLIC; Start 11/02/16 at 09:00 Linezolid (Zyvox) 600 mg BID PO Last administered on 11/06/16 09:08; Admin Dose 600 MG; Start 11/01/16 at 10:30 Citric Acid/ Sodium Citrate (Bicitra Liquid (Ped)) 10 meq TID PO Last administered on 11/06/16 13:05; Admin Dose 10 MEQ; Start 11/03/16 at 09:00 Docusate Sodium (Colace Liquid Cup) 200 mg QHS PO Last administered on 21:01; Admin Dose 200 MG; Start 11/03/16 at 21:00 Gabapentin (Neurontin Liquid) 100 mg TID PO Last administered on 11/06/16 13: 05; Admin Dose 100 MG; Start 11/03/16 at 09:00 Risperidone (Risperdal) 1 mg QHS PO Last administered on 11/05/16 20:36; Admin Dose 1 MG; Start 11/03/16 at 21:00 Lansoprazole (Prevacid) 30 mg DAILY@06 PO Last administered on 11/06/16 05:14 ; Admin Dose 30 MG; Start 11/03/16 at 06:00 KELSI CERDA NP Nov 06, 2016 15:16
--- NOTE | 2016-11-06 15:49 | CONS ---
Date/Time of Note Date/Time of Note DATE: 11/06/16 TIME: 15:47 Assessment/Plan Assessment/Plan Additional Assessment/Plan 1. Acute kidney injury secondary to severe prerenal azotemia and possible acute tubular necrosis. 2. Acute uremia with a BUN of 46, Cr 1.42 on admission - 1.87 today 3. Acute hyperkalemia- resolved 5. 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 6. History of neurogenic bladder with urinary retention, status post suprapubic catheter. 7. History of previous recurrent urinary tract infections. 8. 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 9. 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 10. Other medical history includes anxiety, depression, bipolar disorder, psychosis. 11. History of right nephrectomy with left renal nephrolithiasis and a left renal cyst measuring 5.3 cm in size. 12. Hyperkalemia- sp Kayexalate 15 gm x1, am BMP Plan: - Elevated K, Cr 1.87 , - BP stable - IV abx as per ID, renally dose all abx and Monitor electrolytes. - will follow up Plan Consultation Date/Type/Reason Admit Date/Time Oct 21, 2016 at 15:46 Initial Consult Date 10/20/16 Type of Consultation: ID Referring Provider: JOSÉ ANTONIO MIRZA MD 24 HR Interval Summary Free Text/Dictation Elevated K- patient agreed to take Kayexalate today, katie fu bmp am , Cr elevated today- cont HD, dw staff Constitutional: requiring O2 Detailed Summary Respiratory: no complaints Cardiovascular: no complaints Gastrointestinal: no complaints Genitourinary: no complaints Exam/Review of Systems Vital Signs Vitals Vital Signs Date Time Temp Pulse Resp B/P Pulse Ox O2 Delivery O2 Flow Rate FiO2 11/06/16 15:18 85 33 97 45 11/06/16 12:00 98.0 109/70 Intake and Output 11/05/16 11/05/16 11/06/16 15:00 23:00 07:00 Intake Total 900 ml 800 ml Output Total 1000 ml 1500 ml Balance -100 ml -700 ml Exam Constitutional: alert Respiratory: diminished breath sounds, normal air movement Cardiovascular: nl pulses, regular rate and rhythm Gastrointestinal: non-tender, soft Musculoskeletal: muscle weakness Extremities: normal pulses Skin: other Results Result Diagram: 11/06/16 0614 11/06/16 0614 Results 24 hrs Laboratory Tests Test 11/06/16 06:14 White Blood Count 4.9 # Red Blood Count 2.96 L Hemoglobin 9.0 L Hematocrit 29.2 L Mean Corpuscular Volume 98.6 Mean Corpuscular Hemoglobin 30.4 Mean Corpuscular Hemoglobin Concent 30.8 L Red Cell Distribution Width 13.4 Platelet Count 136 L Mean Platelet Volume 11.6 H Neutrophils % 72.1 Lymphocytes % 15.8 Monocytes % 7.6 Eosinophils % 3.9 Basophils % 0.4 Nucleated Red Blood Cells % 0.0 Neutrophils # 3.5 Lymphocytes # 0.8 Monocytes # 0.4 Eosinophils # 0.2 Basophils # 0.0 Nucleated Red Blood Cells # 0.0 Sodium Level 138 Potassium Level 5.4 H Chloride Level 109 Carbon Dioxide Level 22 Anion Gap 12 Blood Urea Nitrogen 46 H Creatinine 1.87 H Glucose Level 82 Calcium Level 9.1 Medications Medications Current Medications Dextrose (D50w Syringe) ONCE PRN IV POC BLOOD GLUCOSE <250 MG/DL; Start at 06:00 Hydromorphone HCl (Dilaudid) 1 mg Q4H PRN IV PAIN Last administered on 13:05; Admin Dose 1 MG; Start 10/20/16 at 10:00 Acetaminophen (Tylenol Liquid) 650 mg Q4H PRN GTB MILD PAIN LEVEL 1-3 Last administered on 11/01/16 06:29; Admin Dose 650 MG; Start 10/20/16 at 13:30 Ascorbic Acid (Vitamin C) 500 mg DAILY GTB Last administered on 11/06/16 09:09 ; Admin Dose 500 MG; Start 10/20/16 at 14:00 Bisacodyl (Dulcolax Supp) 10 mg Q24H PRN [place] CONSTIPATION; Start 10/20/16 at 13: 30 Enoxaparin Sodium (Lovenox) 30 mg DAILY SC ; Start 10/21/16 at 09:00; Status Future Hold Magnesium Hydroxide (Milk Of Mag) 30 ml DAILY PRN GTB CONSTIPATION; Start 10/20 at 13:30 Polyethylene Glycol (Miralax) 17 gm DAILY GTB Last administered on 11/06/16 09 :08; Admin Dose 17 GM; Start 10/20/16 at 13:30 Zinc Sulfate (Zinc Sulfate) 220 mg DAILY GTB Last administered on 11/06/16 09: 09; Admin Dose 220 MG; Start 10/21/16 at 09:00 Multivit/Ca Carb/ B Cmplx/FA/Prenat (Lilibeth-Linn) 1 tab DAILY GTB Last administered on 11/06/16 09:09; Admin Dose 1 TAB; Start 10/21/16 at 09:00 Acetaminophen/ Hydrocodone Bitart ([place] (5/325)) 1 tab Q6 PRN GTB PAIN LEVEL 1 -5 Last administered on 11/04/16 08:27; Admin Dose 1 TAB; Start 10/20/16 at 14: 00 Ferrous Sulfate (Feosol Liquid Cup) 300 mg DAILY GTB Last administered on 09:07; Admin Dose 300 MG; Start 10/20/16 at 14:07 Miscellaneous Information (Pending Santyl Order For Wound Care) This patient noriega... PRN PRN XX WOUND CARE; Start 10/20/16 at 20:00 Zolpidem Tartrate (Ambien) 5 mg HS PRN PO INSOMNIA Last administered on 21:08; Admin Dose 5 MG; Start 10/20/16 at 21:00 Mupirocin (Bactroban) 1 applic BID TOP Last administered on 11/06/16 09:09; Admin Dose 1 APPLIC; Start 10/22/16 at 21:00 Collagenase (Santyl) 1 applic DAILY TOP Last administered on 11/06/16 09:10; Admin Dose 1 APPLIC; Start 11/02/16 at 09:00 Linezolid (Zyvox) 600 mg BID PO Last administered on 11/06/16 09:08; Admin Dose 600 MG; Start 11/01/16 at 10:30 Citric Acid/ Sodium Citrate (Bicitra Liquid (Ped)) 10 meq TID PO Last administered on 11/06/16 13:05; Admin Dose 10 MEQ; Start 11/03/16 at 09:00 Docusate Sodium (Colace Liquid Cup) 200 mg QHS PO Last administered on 21:01; Admin Dose 200 MG; Start 11/03/16 at 21:00 Gabapentin (Neurontin Liquid) 100 mg TID PO Last administered on 11/06/16 13: 05; Admin Dose 100 MG; Start 11/03/16 at 09:00 Risperidone (Risperdal) 1 mg QHS PO Last administered on 11/05/16 20:36; Admin Dose 1 MG; Start 11/03/16 at 21:00 Lansoprazole (Prevacid) 30 mg DAILY@06 PO Last administered on 11/06/16 05:14 ; Admin Dose 30 MG; Start 11/03/16 at 06:00 NAE VELAZCO Nov 06, 2016 15:49
[2016-11-06] MEDS: DOCUSATE SODIUM 10 MG/ML (10ML CUP) PO SCH (21:00)
[2016-11-06] MEDS: RISPERIDONE 1 MG TAB PO SCH (21:15)
[2016-11-06] MEDS: ZOLPIDEM 5 MG TAB PO PRN (21:15)
[2016-11-07] VITALS (24 sets, daily range): BP systolic 93–124; BP diastolic 55–87; PULSE 72–99; RESP 18–33
[2016-11-07] MEDS: HYDROmorphONE 1 MG/ML SYG IV PRN ×6 (00:58→21:08)
[2016-11-07] MEDS: LEVALBUTEROL (HFA) 15 GM INHALER INH SCH ×4 (01:23→19:28)
[2016-11-07] MEDS: IPRATROPIUM (HFA) 12.9 GM INHALER INH SCH ×4 (01:23→19:28)
[2016-11-07] MEDS: LANSOPRAZOLE 30 MG CAP PO SCH (04:59)
[2016-11-07 06:23] LABS: BASOPHILS % 0.2 % (0.0-2.0); EOSINOPHILS # 0.1 10^3/ul (0.0-0.5); EOSINOPHILS % 1.3 % (0.0-7.0); HEMATOCRIT 29.8 % (42.0-52.0); HEMOGLOBIN 9.2 g/dl (14.0-18.0); LYMPHOCYTES # 0.7 10^3/ul (0.8-2.9); LYMPHOCYTES % 15.3 % (15.0-51.0); MEAN CORPUSCULAR HEMOGLOBIN 30.7 pg (29.0-33.0); MEAN CORPUSCULAR HGB CONC 30.9 g/dl (32.0-37.0); MEAN CORPUSCULAR VOLUME 99.3 fl (82.0-101.0); MEAN PLATELET VOLUME 10.8 fl (7.4-10.4); MONOCYTE # 0.4 10^3/ul (0.3-0.9); NEUTROPHIL # 3.4 10^3/ul (1.6-7.5); NEUTROPHILS % 74.8 % (39.0-77.0); PLATELET COUNT 137 10^3/UL (140-415); RED CELL DISTRIBUTION WIDTH 13.5 % (11.5-14.5); WHITE BLOOD COUNT 4.5 10^3/ul (4.8-10.8)
[2016-11-07 07:14] LABS: CALCIUM 8.6 mg/dl (8.4-10.2); CREATININE 1.68 mg/dl (0.61-1.24); POTASSIUM 5.6 mmol/L (3.5-5.1)
[2016-11-07] MEDS: POLYETHYLENE GLYCOL 17 GM PACKET GTB SCH ×2 (09:00→09:03)
[2016-11-07] MEDS: ZINC SULFATE 220 MG CAP GTB SCH (09:03)
[2016-11-07] MEDS: FERROUS SULFATE 60 MG/ML 5ML CUP GTB SCH (09:03)
[2016-11-07] MEDS: MULTIVIT/CA CARB/B CMPLX/FA TAB GTB SCH (09:03)
[2016-11-07] MEDS: ASCORBIC ACID 500 MG TAB GTB SCH (09:03)
[2016-11-07] MEDS: ZYVOX 600 MG TAB PO SCH ×2 (09:03→21:07)
[2016-11-07] MEDS: MUPIROCIN 2% 22 GM OINT TOP SCH ×2 (09:04→21:07)
[2016-11-07] MEDS: COLLAGENASE 30 GM TUBE TOP SCH (09:04)
[2016-11-07] MEDS: GABAPENTIN (50 MG/ML PO SYG) PO SCH ×3 (09:08→21:07)
[2016-11-07] MEDS: CITRIC ACID/NA CIT (1 MEQ/ML POSYG) PO SCH ×3 (09:09→21:07)
--- NOTE | 2016-11-07 10:32 | PN ---
DATE: 11/07/2016 SUBJECTIVE DATA: The patient is resting comfortably. He is awake, responsive, breathing without any signs of respiratory distress with ventilator support. PHYSICAL EXAM: VITAL SIGNS: His vital signs are stable. No fever spikes. Temperature 98.2, blood pressure 115/66, pulse rate of 67, respirations 19, pulse oximetry 98 percent saturation on 40 percent inhaled oxygen concentration. Tracheal secretions are clear. No bleeding is seen. HEART: Regular rhythm. CHEST: Breath sounds are diminished in both lower lung tierney at the lung bases, otherwise clear. ABDOMEN: Soft. Tolerating oral feedings. Normal bowel sounds. No localized tenderness. EXTREMITIES: No edema. He is paraplegic in both the lower extremities. LAB TESTS: From today shows a local sodium 140, potassium 3.6, a BUN 46, creatinine 1.68, calcium 8.6, glucose 93. The CBC shows WBC of 4500, hemoglobin 9.2, hematocrit 29.8, platelets decreased to 137,000. IMPRESSION: 1. Chronic ventilator-dependent respiratory failure. 2. Urinary tract infection with vancomycin-resistant Enterococcus. 3. Chronic kidney disease. 4. Nephrolithiasis status post lithotripsy. 5. Chronic anemia. 6. Chronic bilateral pleural effusions. 7. 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 PLAN: 1. Continue long-term ventilator support. 2. Continue antibiotics as per Infectious Disease network security consultant. 3. Continue bronchodilator inhalation therapy. 4. Continue oral feedings as tolerated. The patient's pulmonary status seems to be stable. Okay to start discharge planning for long-term stay. Dictated By: Palmer Ames MD /sera/armida /Document#: [id number]
[2016-11-07] MEDS: NA POLYST SULFON 15 GM/60 ML BTL PO ONE ×3 (13:04→17:41)
--- NOTE | 2016-11-07 16:09 | CONS ---
Date/Time of Note Date/Time of Note DATE: 11/07/16 TIME: 16:00 Consultation Date/Type/Reason Admit Date/Time Oct 21, 2016 at 15:46 Initial Consult Date SUBJECTIVE DATA: 41 y/o male ventilator dependent and bedbound pt is being treated for sepsis and S/P septic shock. No acute changes overnight. The patient is alert, looks comfortable. Denies pain and fevers. VS:BP:109/68 HR:110 R: 27 TEMP: 97.7 SO2: 94% ON VENT. LABS: H&H: STABLE. WBC- 4.5. BUN-46 CREAT-1.68 MICROBIOLOGY: Urine culture growing VRE INDWELLINGS: Trach, PEG, suprapubic catheter. ANTIMICROBIALS: Zyvox IV, s/p Fosfomycin dose. Bactroban iotm. topical. PHYSICAL EXAMINATION: GENERAL: Well developed, chronically ill-appearing, middle-aged, quadriplegic man, who is in no distress. HEENT: Head atraumatic, normocephalic. Sclerae anicteric. Buccal mucosa dry. NECK: Supple. Tracheostomy present. CHEST: Chest rise symmetrical. Breath sounds diminished to bases. HEART: S1, S2. ABDOMEN: Soft, bowel sounds present. EXTREMITIES: Without cyanosis, wasted. ASSESSMENT: 1. S/P septic shock 2. PNA. 3. VRE UTI. 4. Scabies-==> treated with Elimite and ivermectin. 5. History of right nephrectomy. 6. Status post shockwave lithotripsy with removal of old stent. 7. Multiple chronic wounds. 8. Chronic resp failure on Vent. PLAN: The patient remains stable. Continue present care. Complete abx., f/u pulmonary/urology rec-s. D/C planning in AM. Type of Consultation: ID Referring Provider: JOSÉ ANTONIO MIRZA MD Exam/Review of Systems Vital Signs Vitals Vital Signs Date Time Temp Pulse Resp B/P Pulse Ox O2 Delivery O2 Flow Rate FiO2 11/07/16 15:10 95 26 97 40 11/07/16 11:44 97.7 109/68 Intake and Output 11/06/16 11/06/16 11/07/16 15:00 23:00 07:00 Intake Total 800 ml 660 ml Output Total 1400 ml 1100 ml Balance -600 ml -440 ml Results Result Diagram: 10/2/17 0545 11/07/16 0545 Results 24 hrs Laboratory Tests Test 11/07/16 05:45 White Blood Count 4.5 L Red Blood Count 3.00 L Hemoglobin 9.2 L Hematocrit 29.8 L Mean Corpuscular Volume 99.3 Mean Corpuscular Hemoglobin 30.7 Mean Corpuscular Hemoglobin Concent 30.9 L Red Cell Distribution Width 13.5 Platelet Count 137 L Mean Platelet Volume 10.8 H Neutrophils % 74.8 Lymphocytes % 15.3 Monocytes % 8.0 Eosinophils % 1.3 Basophils % 0.2 Nucleated Red Blood Cells % 0.0 Neutrophils # 3.4 Lymphocytes # 0.7 L Monocytes # 0.4 Eosinophils # 0.1 Basophils # 0.0 Nucleated Red Blood Cells # 0.0 Sodium Level 140 Potassium Level 5.6 H Chloride Level 111 H Carbon Dioxide Level 22 Anion Gap 13 Blood Urea Nitrogen 46 H Creatinine 1.68 H Glucose Level 93 Calcium Level 8.6 Medications Medications Current Medications Dextrose (D50w Syringe) ONCE PRN IV POC BLOOD GLUCOSE <250 MG/DL; Start at 06:00 Hydromorphone HCl (Dilaudid) 1 mg Q4H PRN IV PAIN Last administered on 13:05; Admin Dose 1 MG; Start 10/20/16 at 10:00 Acetaminophen (Tylenol Liquid) 650 mg Q4H PRN GTB MILD PAIN LEVEL 1-3 Last administered on 11/01/16 06:29; Admin Dose 650 MG; Start 10/20/16 at 13:30 Ascorbic Acid (Vitamin C) 500 mg DAILY GTB Last administered on 11/07/16 09:03 ; Admin Dose 500 MG; Start 10/20/16 at 14:00 Bisacodyl (Dulcolax Supp) 10 mg Q24H PRN [place] CONSTIPATION; Start 10/20/16 at 13: 30 Enoxaparin Sodium (Lovenox) 30 mg DAILY SC ; Start 10/21/16 at 09:00; Status Future Hold Magnesium Hydroxide (Milk Of Mag) 30 ml DAILY PRN GTB CONSTIPATION; Start 10/20 at 13:30 Polyethylene Glycol (Miralax) 17 gm DAILY GTB Last administered on 11/06/16 09 :08; Admin Dose 17 GM; Start 10/20/16 at 13:30 Zinc Sulfate (Zinc Sulfate) 220 mg DAILY GTB Last administered on 11/07/16 09: 03; Admin Dose 220 MG; Start 10/21/16 at 09:00 Multivit/Ca Carb/ B Cmplx/FA/Prenat ([place]) 1 tab DAILY GTB Last administered on 11/07/16 09:03; Admin Dose 1 TAB; Start 10/21/16 at 09:00 Acetaminophen/ Hydrocodone Bitart ([place] (5/325)) 1 tab Q6 PRN GTB PAIN LEVEL 1 -5 Last administered on 11/04/16 08:27; Admin Dose 1 TAB; Start 10/20/16 at 14: 00 Ferrous Sulfate (Feosol Liquid Cup) 300 mg DAILY GTB Last administered on 09:03; Admin Dose 300 MG; Start 10/20/16 at 14:07 Miscellaneous Information (Pending Santyl Order For Wound Care) This patient noriega... PRN PRN XX WOUND CARE; Start 10/20/16 at 20:00 Zolpidem Tartrate (Ambien) 5 mg HS PRN PO INSOMNIA Last administered on 21:15; Admin Dose 5 MG; Start 10/20/16 at 21:00 Mupirocin (Bactroban) 1 applic BID TOP Last administered on 11/07/16 09:04; Admin Dose 1 APPLIC; Start 10/22/16 at 21:00 Collagenase (Santyl) 1 applic DAILY TOP Last administered on 11/07/16 09:04; Admin Dose 1 APPLIC; Start 11/02/16 at 09:00 Linezolid (Zyvox) 600 mg BID PO Last administered on 11/07/16 09:03; Admin Dose 600 MG; Start 11/01/16 at 10:30; Stop 11/07/16 at 23:30 Citric Acid/ Sodium Citrate (Bicitra Liquid (Ped)) 10 meq TID PO Last administered on 11/07/16 13:04; Admin Dose 10 MEQ; Start 11/03/16 at 09:00 Docusate Sodium (Colace Liquid Cup) 200 mg QHS PO Last administered on 21:01; Admin Dose 200 MG; Start 9/28/17 at 21:00 Gabapentin (Neurontin Liquid) 100 mg TID PO Last administered on 11/07/16 13: 04; Admin Dose 100 MG; Start 11/03/16 at 09:00 Risperidone (Risperdal) 1 mg QHS PO Last administered on 11/06/16 21:15; Admin Dose 1 MG; Start 11/03/16 at 21:00 Lansoprazole (Prevacid) 30 mg DAILY@06 PO Last administered on 11/07/16 04:59 ; Admin Dose 30 MG; Start 11/03/16 at 06:00 ADELAIDA PEREZ Nov 07, 2016 16:09
--- NOTE | 2016-11-07 16:28 | CONS ---
Date/Time of Note Date/Time of Note DATE: 11/07/16 TIME: 16:26 Assessment/Plan Assessment/Plan Additional Assessment/Plan Sepsis/SIRS Hypotension, improved Sinus tachycardia, improved Acute kidney injury, improved Respiratory Failure Preserved EF on echocardiogram March 02, 2016 History of intermittent [place] I Chronic pain syndrome Hyperkalemia -Patient with intermittent episodes of sinus tachycardia. Continue telemetry monitoring. Continue to hold any antihypertensive medications. Antibiotics as per primary team. Fluid management and electrolytes as per nephrology Consultation Date/Type/Reason Admit Date/Time Oct 21, 2016 at 15:46 Initial Consult Date 10/20/16 Type of Consultation: cv Referring Provider: JOSÉ ANTONIO MIRZA MD 24 HR Interval Summary Free Text/Dictation Denies palpitations or chest pain Exam/Review of Systems Vital Signs Vitals Vital Signs Date Time Temp Pulse Resp B/P Pulse Ox O2 Delivery O2 Flow Rate FiO2 11/07/16 15:10 95 26 97 40 11/07/16 11:44 97.7 109/68 Intake and Output 11/06/16 11/06/16 11/07/16 15:00 23:00 07:00 Intake Total 800 ml 660 ml Output Total 1400 ml 1100 ml Balance -600 ml -440 ml Exam No apparent distress Constitutional: alert, oriented Neck: other (Tracheostomy) Respiratory: other (Coarse breath sounds bilaterally, no wheezing) Cardiovascular: other (S1-S2 heard), regular rate and rhythm Gastrointestinal: bowel sounds, non-tender, soft Extremities: other (No significant edema) Results Result Diagram: 11/07/16 0545 11/07/16 0545 Results 24 hrs Laboratory Tests Test 11/07/16 05:45 White Blood Count 4.5 L Red Blood Count 3.00 L Hemoglobin 9.2 L Hematocrit 29.8 L Mean Corpuscular Volume 99.3 Mean Corpuscular Hemoglobin 30.7 Mean Corpuscular Hemoglobin Concent 30.9 L Red Cell Distribution Width 13.5 Platelet Count 137 L Mean Platelet Volume 10.8 H Neutrophils % 74.8 Lymphocytes % 15.3 Monocytes % 8.0 Eosinophils % 1.3 Basophils % 0.2 Nucleated Red Blood Cells % 0.0 Neutrophils # 3.4 Lymphocytes # 0.7 L Monocytes # 0.4 Eosinophils # 0.1 Basophils # 0.0 Nucleated Red Blood Cells # 0.0 Sodium Level 140 Potassium Level 5.6 H Chloride Level 111 H Carbon Dioxide Level 22 Anion Gap 13 Blood Urea Nitrogen 46 H Creatinine 1.68 H Glucose Level 93 Calcium Level 8.6 Medications Medications Current Medications Dextrose (D50w Syringe) ONCE PRN IV POC BLOOD GLUCOSE <250 MG/DL; Start at 06:00 Hydromorphone HCl (Dilaudid) 1 mg Q4H PRN IV PAIN Last administered on 13:05; Admin Dose 1 MG; Start 10/20/16 at 10:00 Acetaminophen (Tylenol Liquid) 650 mg Q4H PRN GTB MILD PAIN LEVEL 1-3 Last administered on 11/01/16 06:29; Admin Dose 650 MG; Start 10/20/16 at 13:30 Ascorbic Acid (Vitamin C) 500 mg DAILY GTB Last administered on 11/07/16 09:03 ; Admin Dose 500 MG; Start 10/20/16 at 14:00 Bisacodyl (Dulcolax Supp) 10 mg Q24H PRN [place] CONSTIPATION; Start 10/20/16 at 13: 30 Enoxaparin Sodium (Lovenox) 30 mg DAILY SC ; Start 10/21/16 at 09:00; Status Future Hold Magnesium Hydroxide (Milk Of Mag) 30 ml DAILY PRN GTB CONSTIPATION; Start 10/20 at 13:30 Polyethylene Glycol (Miralax) 17 gm DAILY GTB Last administered on 11/06/16 09 :08; Admin Dose 17 GM; Start 10/20/16 at 13:30 Zinc Sulfate (Zinc Sulfate) 220 mg DAILY GTB Last administered on 11/07/16 09: 03; Admin Dose 220 MG; Start 10/21/16 at 09:00 Multivit/Ca Carb/ B Cmplx/FA/Prenat ([place]) 1 tab DAILY GTB Last administered on 11/07/16 09:03; Admin Dose 1 TAB; Start 10/21/16 at 09:00 Acetaminophen/ Hydrocodone Bitart ([place] (5/325)) 1 tab Q6 PRN GTB PAIN LEVEL 1 -5 Last administered on 11/04/16 08:27; Admin Dose 1 TAB; Start 10/20/16 at 14: 00 Ferrous Sulfate (Feosol Liquid Cup) 300 mg DAILY GTB Last administered on 09:03; Admin Dose 300 MG; Start 10/20/16 at 14:07 Miscellaneous Information (Pending Santyl Order For Wound Care) This patient noriega... PRN PRN XX WOUND CARE; Start 10/20/16 at 20:00 Zolpidem Tartrate (Ambien) 5 mg HS PRN PO INSOMNIA Last administered on 21:15; Admin Dose 5 MG; Start 10/20/16 at 21:00 Mupirocin (Bactroban) 1 applic BID TOP Last administered on 11/07/16 09:04; Admin Dose 1 APPLIC; Start 10/22/16 at 21:00 Collagenase (Santyl) 1 applic DAILY TOP Last administered on 11/07/16 09:04; Admin Dose 1 APPLIC; Start 11/02/16 at 09:00 Linezolid (Zyvox) 600 mg BID PO Last administered on 11/07/16 09:03; Admin Dose 600 MG; Start 11/01/16 at 10:30; Stop 11/07/16 at 23:30 Citric Acid/ Sodium Citrate (Bicitra Liquid (Ped)) 10 meq TID PO Last administered on 11/07/16 13:04; Admin Dose 10 MEQ; Start 11/03/16 at 09:00 Docusate Sodium (Colace Liquid Cup) 200 mg QHS PO Last administered on 21:01; Admin Dose 200 MG; Start 11/03/16 at 21:00 Gabapentin (Neurontin Liquid) 100 mg TID PO Last administered on 11/07/16 13: 04; Admin Dose 100 MG; Start 11/03/16 at 09:00 Risperidone (Risperdal) 1 mg QHS PO Last administered on 11/06/16 21:15; Admin Dose 1 MG; Start 11/03/16 at 21:00 Lansoprazole (Prevacid) 30 mg DAILY@06 PO Last administered on 11/07/16 04:59 ; Admin Dose 30 MG; Start 11/03/16 at 06:00 Deandre Chavez DO Nov 07, 2016 16:28
--- NOTE | 2016-11-07 17:33 | PN ---
Date/Time of Note Date/Time of Note DATE: 11/07/16 TIME: 17:32 Assessment/Plan VTE Prophylaxis VTE Prophylaxis Intervention: SCD's Lines/Catheters IV Catheter Type (from [facility]): PICC Line Central line still needed: Yes Urinary Cath still in place: Yes (SUPRAPUBIC) Reason Cath still needed: urinary retention Assessment/Plan Chief Complaint/Hosp Course Patient with hyperkalemia, give Kayaxelate. Assessment/Plan - Hyperkalemia, resolved - VRE in urine, started on Zyvox. - Possible scabies, continue on Elimite - Sepsis due to HCAP, urinary tract infection, resolving. Dr. Maciel is following in infection disease consultation. Continue antibiotics per ID. - Neurogenic bladder with suprapubic catheter. - Left renal nephrolithiasis, Dr Marquez is following in urology consultation. S /p lithotripsy and movable of a left ureteral JJ stent by Dr. Marquez 10/29. - Acute kidney injury on chronic kidney disease. Continue to monitor renal function. - Status post right nephrectomy - Ventilator-dependent respiratory failure with tracheostomy. - Dysphagia with percutaneous endoscopic gastrostomy tube. - Multiple decubitus ulcers present on admission. - Cervical spine injury with paraplegia. - Bipolar disorder with psychosis. Further recommendations based on clinical course. Plan of care discussed with Dr. Barreto. Problems: Exam/Review of Systems Vital Signs Vitals Vital Signs Date Time Temp Pulse Resp B/P Pulse Ox O2 Delivery O2 Flow Rate FiO2 11/07/16 16:38 98.9 84 23 124/87 97 11/07/16 15:10 40 Intake and Output 11/06/16 11/06/16 11/07/16 15:00 23:00 07:00 Intake Total 800 ml 660 ml Output Total 1400 ml 1100 ml Balance -600 ml -440 ml Exam Constitutional: alert Neck: other (Urostomy), supple Respiratory: diminished breath sounds Cardiovascular: nl pulses, regular rate and rhythm Gastrointestinal: non-tender, other (G-tube), soft Extremities: normal pulses Skin: other (multiple decubitus ulcers) Results Result Diagram: 11/07/16 0545 11/07/16 0545 Results 24 hrs Laboratory Tests Test 11/07/16 05:45 White Blood Count 4.5 L Red Blood Count 3.00 L Hemoglobin 9.2 L Hematocrit 29.8 L Mean Corpuscular Volume 99.3 Mean Corpuscular Hemoglobin 30.7 Mean Corpuscular Hemoglobin Concent 30.9 L Red Cell Distribution Width 13.5 Platelet Count 137 L Mean Platelet Volume 10.8 H Neutrophils % 74.8 Lymphocytes % 15.3 Monocytes % 8.0 Eosinophils % 1.3 Basophils % 0.2 Nucleated Red Blood Cells % 0.0 Neutrophils # 3.4 Lymphocytes # 0.7 L Monocytes # 0.4 Eosinophils # 0.1 Basophils # 0.0 Nucleated Red Blood Cells # 0.0 Sodium Level 140 Potassium Level 5.6 H Chloride Level 111 H Carbon Dioxide Level 22 Anion Gap 13 Blood Urea Nitrogen 46 H Creatinine 1.68 H Glucose Level 93 Calcium Level 8.6 Medications Medications Current Medications Dextrose (D50w Syringe) ONCE PRN IV POC BLOOD GLUCOSE <250 MG/DL; Start at 06:00 Hydromorphone HCl (Dilaudid) 1 mg Q4H PRN IV PAIN Last administered on 13:05; Admin Dose 1 MG; Start 10/20/16 at 10:00 Acetaminophen (Tylenol Liquid) 650 mg Q4H PRN GTB MILD PAIN LEVEL 1-3 Last administered on 11/01/16 06:29; Admin Dose 650 MG; Start 10/20/16 at 13:30 Ascorbic Acid (Vitamin C) 500 mg DAILY GTB Last administered on 11/07/16 09:03 ; Admin Dose 500 MG; Start 10/20/16 at 14:00 Bisacodyl (Dulcolax Supp) 10 mg Q24H PRN [place] CONSTIPATION; Start 10/20/16 at 13: 30 Enoxaparin Sodium (Lovenox) 30 mg DAILY SC ; Start 10/21/16 at 09:00; Status Future Hold Magnesium Hydroxide (Milk Of Mag) 30 ml DAILY PRN GTB CONSTIPATION; Start 10/20 at 13:30 Polyethylene Glycol (Miralax) 17 gm DAILY GTB Last administered on 11/06/16 09 :08; Admin Dose 17 GM; Start 10/20/16 at 13:30 Zinc Sulfate (Zinc Sulfate) 220 mg DAILY GTB Last administered on 11/07/16 09: 03; Admin Dose 220 MG; Start 10/21/16 at 09:00 Multivit/Ca Carb/ B Cmplx/FA/Prenat ([place]ilib[place]) 1 tab DAILY GTB Last administered on 11/07/16 09:03; Admin Dose 1 TAB; Start 10/21/16 at 09:00 Acetaminophen/ Hydrocodone Bitart ([place] (5/325)) 1 tab Q6 PRN GTB PAIN LEVEL 1 -5 Last administered on 11/04/16 08:27; Admin Dose 1 TAB; Start 10/20/16 at 14: 00 Ferrous Sulfate (Feosol Liquid Cup) 300 mg DAILY GTB Last administered on 09:03; Admin Dose 300 MG; Start 10/20/16 at 14:07 Miscellaneous Information (Pending Santyl Order For Wound Care) This patient noriega... PRN PRN XX WOUND CARE; Start 10/20/16 at 20:00 Zolpidem Tartrate (Ambien) 5 mg HS PRN PO INSOMNIA Last administered on 21:15; Admin Dose 5 MG; Start 10/20/16 at 21:00 Mupirocin (Bactroban) 1 applic BID TOP Last administered on 11/07/16 09:04; Admin Dose 1 APPLIC; Start 10/22/16 at 21:00 Collagenase (Santyl) 1 applic DAILY TOP Last administered on 11/07/16 09:04; Admin Dose 1 APPLIC; Start 11/02/16 at 09:00 Linezolid (Zyvox) 600 mg BID PO Last administered on 11/07/16 09:03; Admin Dose 600 MG; Start 11/01/16 at 10:30; Stop 11/07/16 at 23:30 Citric Acid/ Sodium Citrate (Bicitra Liquid (Ped)) 10 meq TID PO Last administered on 11/07/16 13:04; Admin Dose 10 MEQ; Start 11/03/16 at 09:00 Docusate Sodium (Colace Liquid Cup) 200 mg QHS PO Last administered on 21:01; Admin Dose 200 MG; Start 11/03/16 at 21:00 Gabapentin (Neurontin Liquid) 100 mg TID PO Last administered on 11/07/16 13: 04; Admin Dose 100 MG; Start 11/03/16 at 09:00 Risperidone (Risperdal) 1 mg QHS PO Last administered on 11/06/16 21:15; Admin Dose 1 MG; Start 11/03/16 at 21:00 Lansoprazole (Prevacid) 30 mg DAILY@06 PO Last administered on 11/07/16 04:59 ; Admin Dose 30 MG; Start 11/03/16 at 06:00 AISSATOU DUNCAN Nov 07, 2016 17:33
--- NOTE | 2016-11-07 17:46 | CONS ---
Date/Time of Note Date/Time of Note DATE: 11/07/16 TIME: 17:44 Assessment/Plan Assessment/Plan Additional Assessment/Plan 1. Acute kidney injury secondary to severe prerenal azotemia and possible acute tubular necrosis. 2. Acute uremia with a BUN of 46, Cr 1.42 on admission 3. Acute hyperkalemia- resolved 5. 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 6. History of neurogenic bladder with urinary retention, status post suprapubic catheter. 7. History of previous recurrent urinary tract infections. 8. 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 9. 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 10. Other medical history includes anxiety, depression, bipolar disorder, psychosis. 11. History of right nephrectomy with left renal nephrolithiasis and a left renal cyst measuring 5.3 cm in size. 12. Hyperkalemia Plan: - K normal, Cr 1.68 today, K 5.6- kayexalate 15 gram PO x 1 dose today - IV abx as per ID, renally dose all abx and Monitor electrolytes. - will follow up Consultation Date/Type/Reason Admit Date/Time Oct 21, 2016 at 15:46 Initial Consult Date 10/20/16 Type of Consultation: NEPHROLOGY Referring Provider: JOSÉ ANTONIO MIRZA MD 24 HR Interval Summary Free Text/Dictation k high, pt refused kayexalate Exam/Review of Systems Vital Signs Vitals Vital Signs Date Time Temp Pulse Resp B/P Pulse Ox O2 Delivery O2 Flow Rate FiO2 11/07/16 17:20 97 22 96 40 11/07/16 16:38 98.9 124/87 Intake and Output 11/06/16 11/06/16 11/07/16 15:00 23:00 07:00 Intake Total 800 ml 660 ml Output Total 1400 ml 1100 ml Balance -600 ml -440 ml Exam Constitutional: alert ENMT: nl external ears & nose, other (+ tracheostomy on ventilator ) Respiratory: clear to auscultation, crackles/rales Cardiovascular: nl pulses, regular rate and rhythm Gastrointestinal: non-tender, other (+ G tube placement ), soft Musculoskeletal: quadruplegic Results Result Diagram: 11/07/16 0545 11/07/16 0545 Results 24 hrs Laboratory Tests Test 11/07/16 05:45 White Blood Count 4.5 L Red Blood Count 3.00 L Hemoglobin 9.2 L Hematocrit 29.8 L Mean Corpuscular Volume 99.3 Mean Corpuscular Hemoglobin 30.7 Mean Corpuscular Hemoglobin Concent 30.9 L Red Cell Distribution Width 13.5 Platelet Count 137 L Mean Platelet Volume 10.8 H Neutrophils % 74.8 Lymphocytes % 15.3 Monocytes % 8.0 Eosinophils % 1.3 Basophils % 0.2 Nucleated Red Blood Cells % 0.0 Neutrophils # 3.4 Lymphocytes # 0.7 L Monocytes # 0.4 Eosinophils # 0.1 Basophils # 0.0 Nucleated Red Blood Cells # 0.0 Sodium Level 140 Potassium Level 5.6 H Chloride Level 111 H Carbon Dioxide Level 22 Anion Gap 13 Blood Urea Nitrogen 46 H Creatinine 1.68 H Glucose Level 93 Calcium Level 8.6 Medications Medications Current Medications Dextrose (D50w Syringe) ONCE PRN IV POC BLOOD GLUCOSE <250 MG/DL; Start at 06:00 Hydromorphone HCl (Dilaudid) 1 mg Q4H PRN IV PAIN Last administered on 17:37; Admin Dose 1 MG; Start 10/20/16 at 10:00 Acetaminophen (Tylenol Liquid) 650 mg Q4H PRN GTB MILD PAIN LEVEL 1-3 Last administered on 11/01/16 06:29; Admin Dose 650 MG; Start 10/20/16 at 13:30 Ascorbic Acid (Vitamin C) 500 mg DAILY GTB Last administered on 11/07/16 09:03 ; Admin Dose 500 MG; Start 10/20/16 at 14:00 Bisacodyl (Dulcolax Supp) 10 mg Q24H PRN [place] CONSTIPATION; Start 10/20/16 at 13: 30 Enoxaparin Sodium (Lovenox) 30 mg DAILY SC ; Start 10/21/16 at 09:00; Status Future Hold Magnesium Hydroxide (Milk Of Mag) 30 ml DAILY PRN GTB CONSTIPATION; Start 10/20 at 13:30 Polyethylene Glycol (Miralax) 17 gm DAILY GTB Last administered on 11/06/16 09 :08; Admin Dose 17 GM; Start 10/20/16 at 13:30 Zinc Sulfate (Zinc Sulfate) 220 mg DAILY GTB Last administered on 11/07/16 09: 03; Admin Dose 220 MG; Start 10/21/16 at 09:00 Multivit/Ca Carb/ B Cmplx/FA/Prenat ([place]ilib[place]-L[place]) 1 tab DAILY GTB Last administered on 11/07/16 09:03; Admin Dose 1 TAB; Start 10/21/16 at 09:00 Acetaminophen/ Hydrocodone Bitart ([place] (5/325)) 1 tab Q6 PRN GTB PAIN LEVEL 1 -5 Last administered on 11/04/16 08:27; Admin Dose 1 TAB; Start 10/20/16 at 14: 00 Ferrous Sulfate (Feosol Liquid Cup) 300 mg DAILY GTB Last administered on 09:03; Admin Dose 300 MG; Start 10/20/16 at 14:07 Miscellaneous Information (Pending Santyl Order For Wound Care) This patient noriega... PRN PRN XX WOUND CARE; Start 10/20/16 at 20:00 Zolpidem Tartrate (Ambien) 5 mg HS PRN PO INSOMNIA Last administered on 21:15; Admin Dose 5 MG; Start 10/20/16 at 21:00 Mupirocin (Bactroban) 1 applic BID TOP Last administered on 11/07/16 09:04; Admin Dose 1 APPLIC; Start 10/22/16 at 21:00 Collagenase (Santyl) 1 applic DAILY TOP Last administered on 11/07/16 09:04; Admin Dose 1 APPLIC; Start 11/02/16 at 09:00 Linezolid (Zyvox) 600 mg BID PO Last administered on 11/07/16 09:03; Admin Dose 600 MG; Start 11/01/16 at 10:30; Stop 11/07/16 at 23:30 Citric Acid/ Sodium Citrate (Bicitra Liquid (Ped)) 10 meq TID PO Last administered on 11/07/16 13:04; Admin Dose 10 MEQ; Start 11/03/16 at 09:00 Docusate Sodium (Colace Liquid Cup) 200 mg QHS PO Last administered on 21:01; Admin Dose 200 MG; Start 11/03/16 at 21:00 Gabapentin (Neurontin Liquid) 100 mg TID PO Last administered on 11/07/16 13: 04; Admin Dose 100 MG; Start 11/03/16 at 09:00 Risperidone (Risperdal) 1 mg QHS PO Last administered on 11/06/16 21:15; Admin Dose 1 MG; Start 11/03/16 at 21:00 Lansoprazole (Prevacid) 30 mg DAILY@06 PO Last administered on 11/07/16 04:59 ; Admin Dose 30 MG; Start 11/03/16 at 06:00 TIARA CISNEROS MD Nov 07, 2016 17:46
[2016-11-07] MEDS: DOCUSATE SODIUM 10 MG/ML (10ML CUP) PO SCH (21:00)
[2016-11-07] MEDS: RISPERIDONE 1 MG TAB PO SCH (21:07)
[2016-11-07] MEDS: ZOLPIDEM 5 MG TAB PO PRN (21:07)
[2016-11-08] VITALS (23 sets, daily range): BP systolic 100–136; BP diastolic 58–98; PULSE 82–110; RESP 16–30
[2016-11-08] MEDS: HYDROmorphONE 1 MG/ML SYG IV PRN ×6 (01:10→21:01)
[2016-11-08] MEDS: LEVALBUTEROL (HFA) 15 GM INHALER INH SCH ×4 (01:26→19:25)
[2016-11-08] MEDS: IPRATROPIUM (HFA) 12.9 GM INHALER INH SCH ×4 (01:26→19:25)
[2016-11-08] MEDS: LANSOPRAZOLE 30 MG CAP PO SCH (05:14)
[2016-11-08] MEDS: POLYETHYLENE GLYCOL 17 GM PACKET GTB SCH (09:00)
[2016-11-08 09:18] LABS: CALCIUM 9.3 mg/dl (8.4-10.2); CREATININE 2.05 mg/dl (0.61-1.24); POTASSIUM 5.5 mmol/L (3.5-5.1)
[2016-11-08] MEDS: FERROUS SULFATE 60 MG/ML 5ML CUP GTB SCH (09:20)
[2016-11-08] MEDS: ZINC SULFATE 220 MG CAP GTB SCH (09:21)
[2016-11-08] MEDS: ASCORBIC ACID 500 MG TAB GTB SCH (09:21)
[2016-11-08] MEDS: CITRIC ACID/NA CIT (1 MEQ/ML POSYG) PO SCH ×3 (09:21→21:01)
[2016-11-08] MEDS: GABAPENTIN (50 MG/ML PO SYG) PO SCH (09:21)
[2016-11-08] MEDS: MULTIVIT/CA CARB/B CMPLX/FA TAB GTB SCH (09:21)
[2016-11-08] MEDS: MUPIROCIN 2% 22 GM OINT TOP SCH ×2 (09:22→21:04)
[2016-11-08] MEDS: COLLAGENASE 30 GM TUBE TOP SCH (09:22)
[2016-11-08] MEDS: GABAPENTIN 100 MG CAP PO SCH ×2 (13:22→21:00)
--- NOTE | 2016-11-08 13:43 | CONS ---
Date/Time of Note Date/Time of Note DATE: 11/08/16 TIME: 13:42 Assessment/Plan Assessment/Plan Chief Complaint/Hosp Course SUBJECTIVE DATA: No acute changes overnight. The patient is alert, looks comfortable. Denies pain. No fevers. INDWELLINGS: Trach, PEG, suprapubic catheter. PHYSICAL EXAMINATION: GENERAL: Well developed, chronically ill-appearing, middle-aged, quadriplegic man, who is in no distress. HEENT: Head atraumatic, normocephalic. Sclerae anicteric. Buccal mucosa dry. NECK: Supple. Tracheostomy present. CHEST: Chest rise symmetrical. Breath sounds diminished to bases. HEART: S1, S2. ABDOMEN: Soft, bowel sounds present. EXTREMITIES: Without cyanosis, wasted. ASSESSMENT: 1. Status post septic shock/PNA. 2. S/p VRE UTI. 3. Scabies-==> treated with Elimite and ivermectin. 4. History of right nephrectomy. 5. Status post shockwave lithotripsy with removal of old stent. 6. Multiple chronic wounds. PLAN: The patient remains stable, off abx. Continue present care, f/u pulmonary /urology rec-s [facility] staff Problems: Consultation Date/Type/Reason Admit Date/Time Oct 21, 2016 at 15:46 Initial Consult Date 10/20/16 Type of Consultation: ID Referring Provider: JOSÉ ANTONIO MIRZA MD Exam/Review of Systems Vital Signs Vitals Vital Signs Date Time Temp Pulse Resp B/P Pulse Ox O2 Delivery O2 Flow Rate FiO2 11/08/16 12:14 87 11/08/16 11:30 98.5 17 129/84 97 11/08/16 11:00 40 Intake and Output 11/07/16 11/07/16 11/08/16 15:00 23:00 07:00 Intake Total 1220 ml Output Total 2300 ml Balance -1080 ml Results Result Diagram: 11/07/16 0545 11/08/16 0805 Results 24 hrs Laboratory Tests Test 11/08/16 08:05 Sodium Level 138 Potassium Level 5.5 H Chloride Level 107 Carbon Dioxide Level 24 Anion Gap 13 Blood Urea Nitrogen 51 H Creatinine 2.05 H Glucose Level 81 Calcium Level 9.3 Medications Medications Current Medications Dextrose (D50w Syringe) ONCE PRN IV POC BLOOD GLUCOSE <250 MG/DL; Start at 06:00 Hydromorphone HCl (Dilaudid) 1 mg Q4H PRN IV PAIN Last administered on 13:22; Admin Dose 1 MG; Start 10/20/16 at 10:00 Acetaminophen (Tylenol Liquid) 650 mg Q4H PRN GTB MILD PAIN LEVEL 1-3 Last administered on 11/01/16 06:29; Admin Dose 650 MG; Start 10/20/16 at 13:30 Ascorbic Acid (Vitamin C) 500 mg DAILY GTB Last administered on 11/08/16 09:21 ; Admin Dose 500 MG; Start 10/20/16 at 14:00 Bisacodyl (Dulcolax Supp) 10 mg Q24H PRN [place] CONSTIPATION; Start 10/20/16 at 13: 30 Enoxaparin Sodium (Lovenox) 30 mg DAILY SC ; Start 10/21/16 at 09:00; Status Future Hold Magnesium Hydroxide (Milk Of Mag) 30 ml DAILY PRN GTB CONSTIPATION; Start 10/20 at 13:30 Polyethylene Glycol (Miralax) 17 gm DAILY GTB Last administered on 11/06/16 09 :08; Admin Dose 17 GM; Start 10/20/16 at 13:30 Zinc Sulfate (Zinc Sulfate) 220 mg DAILY GTB Last administered on 11/08/16 09: 21; Admin Dose 220 MG; Start 10/21/16 at 09:00 Multivit/Ca Carb/ B Cmplx/FA/Prenat (Lilibeth-Linn) 1 tab DAILY GTB Last administered on 11/08/16 09:21; Admin Dose 1 TAB; Start 10/21/16 at 09:00 Acetaminophen/ Hydrocodone Bitart ([place] (5/325)) 1 tab Q6 PRN GTB PAIN LEVEL 1 -5 Last administered on 11/04/16 08:27; Admin Dose 1 TAB; Start 10/20/16 at 14: 00 Miscellaneous Information (Pending Santyl Order For Wound Care) This patient noriega... PRN PRN XX WOUND CARE; Start 10/20/16 at 20:00 Zolpidem Tartrate (Ambien) 5 mg HS PRN PO INSOMNIA Last administered on 21:07; Admin Dose 5 MG; Start 10/20/16 at 21:00 Mupirocin (Bactroban) 1 applic BID TOP Last administered on 11/08/16 09:22; Admin Dose 1 APPLIC; Start 10/22/16 at 21:00 Collagenase (Santyl) 1 applic DAILY TOP Last administered on 11/08/16 09:22; Admin Dose 1 APPLIC; Start 11/02/16 at 09:00 Citric Acid/ Sodium Citrate (Bicitra Liquid (Ped)) 10 meq TID PO Last administered on 11/08/16 13:21; Admin Dose 10 MEQ; Start 11/03/16 at 09:00 Docusate Sodium (Colace Liquid Cup) 200 mg QHS PO Last administered on 21:01; Admin Dose 200 MG; Start 11/03/16 at 21:00 Risperidone (Risperdal) 1 mg QHS PO Last administered on 11/07/16 21:07; Admin Dose 1 MG; Start 11/03/16 at 21:00 Lansoprazole (Prevacid) 30 mg DAILY@06 PO Last administered on 11/08/16 05:14 ; Admin Dose 30 MG; Start 11/03/16 at 06:00 Ferrous Sulfate (Ferrous Sulfate (Ec)) 300 mg DAILY PO ; Start 11/09/16 at 09:00 Gabapentin (Neurontin) 100 mg TID PO Last administered on 11/08/16 13:22; Admin Dose 100 MG; Start 11/08/16 at 13:00 REGINALDO CHERY NP Nov 08, 2016 13:43
--- NOTE | 2016-11-08 14:19 | PN ---
Date/Time of Note Date/Time of Note DATE: 11/08/16 TIME: 14:12 Assessment/Plan VTE Prophylaxis VTE Prophylaxis Intervention: SCD's Lines/Catheters IV Catheter Type (from [facility]): PICC Line Central line still needed: Yes Urinary Cath still in place: Yes (SUPRAPUBIC) Reason Cath still needed: urinary retention Assessment/Plan Chief Complaint/Hosp Course Patient with persistent hyperkalemia, s/p Kayexalate yesterday, creatinine is 2 , K is 5.5 today, will give Kayexalate. Patient has completed treatment with Zyvox remains afebrile. Anticipate discharge to [facility] facility [facility] antibiotics when patient electrolytes are within normal limits. Assessment/Plan - VRE in urine, completed Zyvox. - Possible scabies, continue on Elimite - Sepsis due to HCAP, urinary tract infection, resolved. - Neurogenic bladder with suprapubic catheter. - Left renal nephrolithiasis, Dr Marquez is following in urology consultation. S /p lithotripsy and movable of a left ureteral JJ stent by Dr. Marquez 10/29. - Acute kidney injury on chronic kidney disease. Continue to monitor renal function. - Status post right nephrectomy - Ventilator-dependent respiratory failure with tracheostomy. - Dysphagia with percutaneous endoscopic gastrostomy tube. - Multiple decubitus ulcers present on admission. - Cervical spine injury with paraplegia. - Bipolar disorder with psychosis. Further recommendations based on clinical course. Plan of care discussed with Dr. Barreto. Problems: Exam/Review of Systems Vital Signs Vitals Vital Signs Date Time Temp Pulse Resp B/P Pulse Ox O2 Delivery O2 Flow Rate FiO2 11/08/16 13:20 103 20 96 40 11/08/16 11:30 98.5 129/84 Intake and Output 11/07/16 11/07/16 11/08/16 15:00 23:00 07:00 Intake Total 1220 ml Output Total 2300 ml Balance -1080 ml Exam Constitutional: alert Psych: confusion Head: normocephalic Neck: other (trach), supple Respiratory: normal air movement Cardiovascular: nl pulses Gastrointestinal: non-tender, other (Gtube), soft Musculoskeletal: muscle weakness Results Result Diagram: 11/07/16 0545 11/08/16 0805 Results 24 hrs Laboratory Tests Test 11/08/16 08:05 Sodium Level 138 Potassium Level 5.5 H Chloride Level 107 Carbon Dioxide Level 24 Anion Gap 13 Blood Urea Nitrogen 51 H Creatinine 2.05 H Glucose Level 81 Calcium Level 9.3 Medications Medications Current Medications Dextrose (D50w Syringe) ONCE PRN IV POC BLOOD GLUCOSE <250 MG/DL; Start at 06:00 Hydromorphone HCl (Dilaudid) 1 mg Q4H PRN IV PAIN Last administered on 13:22; Admin Dose 1 MG; Start 10/20/16 at 10:00 Acetaminophen (Tylenol Liquid) 650 mg Q4H PRN GTB MILD PAIN LEVEL 1-3 Last administered on 11/01/16 06:29; Admin Dose 650 MG; Start 10/20/16 at 13:30 Ascorbic Acid (Vitamin C) 500 mg DAILY GTB Last administered on 11/08/16 09:21 ; Admin Dose 500 MG; Start 10/20/16 at 14:00 Bisacodyl (Dulcolax Supp) 10 mg Q24H PRN [place] CONSTIPATION; Start 10/20/16 at 13: 30 Enoxaparin Sodium (Lovenox) 30 mg DAILY SC ; Start 10/21/16 at 09:00; Status Future Hold Magnesium Hydroxide (Milk Of Mag) 30 ml DAILY PRN GTB CONSTIPATION; Start 10/20 at 13:30 Polyethylene Glycol (Miralax) 17 gm DAILY GTB Last administered on 11/06/16 09 :08; Admin Dose 17 GM; Start 10/20/16 at 13:30 Zinc Sulfate (Zinc Sulfate) 220 mg DAILY GTB Last administered on 11/08/16 09: 21; Admin Dose 220 MG; Start 10/21/16 at 09:00 Multivit/Ca Carb/ B Cmplx/FA/Prenat (Lilibeth-Linn) 1 tab DAILY GTB Last administered on 11/08/16 09:21; Admin Dose 1 TAB; Start 10/21/16 at 09:00 Acetaminophen/ Hydrocodone Bitart ([place] (5/325)) 1 tab Q6 PRN GTB PAIN LEVEL 1 -5 Last administered on 11/04/16 08:27; Admin Dose 1 TAB; Start 10/20/16 at 14: 00 Miscellaneous [facility] This patient noriega... PRN PRN XX WOUND CARE; Start 10/20/16 at 20:00 Zolpidem Tartrate (Ambien) 5 mg HS PRN PO INSOMNIA Last administered on 21:07; Admin Dose 5 MG; Start 10/20/16 at 21:00 Mupirocin (Bactroban) 1 applic BID TOP Last administered on 11/08/16 09:22; Admin Dose 1 APPLIC; Start 10/22/16 at 21:00 Collagenase (Santyl) 1 applic DAILY TOP Last administered on 11/08/16 09:22; Admin Dose 1 APPLIC; Start 11/02/16 at 09:00 Citric Acid/ Sodium Citrate (Bicitra Liquid (Ped)) 10 meq TID PO Last administered on 11/08/16 13:21; Admin Dose 10 MEQ; Start 11/03/16 at 09:00 Docusate Sodium (Colace Liquid Cup) 200 mg QHS PO Last administered on 21:01; Admin Dose 200 MG; Start 11/03/16 at 21:00 Risperidone (Risperdal) 1 mg QHS PO Last administered on 11/07/16 21:07; Admin Dose 1 MG; Start 11/03/16 at 21:00 Lansoprazole (Prevacid) 30 mg DAILY@06 PO Last administered on 11/08/16 05:14 ; Admin Dose 30 MG; Start 11/03/16 at 06:00 Ferrous Sulfate (Ferrous Sulfate (Ec)) 300 mg DAILY PO ; Start 11/09/16 at 09:00 Gabapentin (Neurontin) 100 mg TID PO Last administered on 11/08/16 13:22; Admin Dose 100 MG; Start 11/08/16 at 13:00 AISSATOU DUNCAN Nov 08, 2016 14:18 AISSATOU DUNCAN Nov 08, 2016 14:18
[2016-11-08] MEDS ORDERED: NA POLYST SULFON 15 GM/60 ML BTL PO ONE (14:30)
[2016-11-08] MEDS ORDERED: MAGNESIUM SULFATE 2 GM/50 ML 50 ML IVPB ONE (15:30)
--- NOTE | 2016-11-08 15:33 | CONS ---
Date/Time of Note Date/Time of Note DATE: 11/08/16 TIME: 15:31 Assessment/Plan Assessment/Plan Additional Assessment/Plan 1. Acute kidney injury secondary to severe prerenal azotemia and possible acute tubular necrosis. 2. Acute uremia with a BUN of 46, Cr 1.42 on admission 3. Acute hyperkalemia- resolved 5. 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 6. History of neurogenic bladder with urinary retention, status post suprapubic catheter. 7. History of previous recurrent urinary tract infections. 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 9. 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 10. Other medical history includes anxiety, depression, bipolar disorder, psychosis. 11. History of right nephrectomy with left renal nephrolithiasis and a left renal cyst measuring 5.3 cm in size. 12. Hyperkalemia Plan: - Cr bumped to 2.05 today , K 5.5- kayexalate 60 gram PO x 1 dose today magnesium suflate 2 gram IV x 1 dose today will give 2 L NS at 75 cc/hr - IV abx as per ID, renally dose all abx and Monitor electrolytes. - will follow up Consultation Date/Type/Reason Admit Date/Time Oct 21, 2016 at 15:46 Initial Consult Date 10/20/16 Type of Consultation: NEPHROLOGY Referring Provider: JOSÉ ANTONIO MIRZA MD 24 HR Interval Summary Free Text/Dictation K 5.5, Mag 1.6, BP stable, afebrile Exam/Review of Systems Vital Signs Vitals Vital Signs Date Time Temp Pulse Resp B/P Pulse Ox O2 Delivery O2 Flow Rate FiO2 11/08/16 15:19 98.0 103 17 107/78 99 11/08/16 13:20 40 Intake and Output 11/07/16 11/07/16 11/08/16 15:00 23:00 07:00 Intake Total 1220 ml Output Total 2300 ml Balance -1080 ml Exam Constitutional: alert ENMT: nl external ears & nose, other (+ tracheostomy on ventilator ) Respiratory: clear to auscultation, crackles/rales Cardiovascular: nl pulses, regular rate and rhythm Gastrointestinal: non-tender, other (+ G tube placement ), soft Musculoskeletal: quadruplegic Results Result Diagram: 11/07/16 0545 11/08/16 0805 Results 24 hrs Laboratory Tests Test 11/08/16 08:05 Sodium Level 138 Potassium Level 5.5 H Chloride Level 107 Carbon Dioxide Level 24 Anion Gap 13 Blood Urea Nitrogen 51 H Creatinine 2.05 H Glucose Level 81 Calcium Level 9.3 Magnesium Level 1.6 L Medications Medications Current Medications Dextrose (D50w Syringe) ONCE PRN IV POC BLOOD GLUCOSE <250 MG/DL; Start at 06:00 Hydromorphone HCl (Dilaudid) 1 mg Q4H PRN IV PAIN Last administered on 13:22; Admin Dose 1 MG; Start 10/20/16 at 10:00 Acetaminophen (Tylenol Liquid) 650 mg Q4H PRN GTB MILD PAIN LEVEL 1-3 Last administered on 11/01/16 06:29; Admin Dose 650 MG; Start 10/20/16 at 13:30 Ascorbic Acid (Vitamin C) 500 mg DAILY GTB Last administered on 11/08/16 09:21 ; Admin Dose 500 MG; Start 10/20/16 at 14:00 Bisacodyl (Dulcolax Supp) [address] CONSTIPATION; Start 10/20/16 at 13: 30 Enoxaparin Sodium (Lovenox) 30 mg DAILY SC ; Start 10/21/16 at 09:00; Status Future Hold Magnesium Hydroxide (Milk Of Mag) 30 ml DAILY PRN GTB CONSTIPATION; Start 10/20 at 13:30 Polyethylene Glycol (Miralax) 17 gm DAILY GTB Last administered on 11/06/16 09 :08; Admin Dose 17 GM; Start 10/20/16 at 13:30 Zinc Sulfate (Zinc Sulfate) 220 mg DAILY GTB Last administered on 11/08/16 09: 21; Admin Dose 220 MG; Start 10/21/16 at 09:00 Multivit/Ca Carb/ B Cmplx/FA/Prenat (Lilibeth-Linn) 1 tab DAILY GTB Last administered on 11/08/16 09:21; Admin Dose 1 TAB; Start 10/21/16 at 09:00 Acetaminophen/ Hydrocodone Bitart ([place] (5/325)) 1 tab Q6 PRN GTB PAIN LEVEL 1 -5 Last administered on 11/04/16 08:27; Admin Dose 1 TAB; Start 10/20/16 at 14: 00 Miscellaneous Information (Pending Santyl Order For Wound Care) This patient noriega... PRN PRN XX WOUND CARE; Start 10/20/16 at 20:00 Zolpidem Tartrate (Ambien) 5 mg HS PRN PO INSOMNIA Last administered on 21:07; Admin Dose 5 MG; Start 10/20/16 at 21:00 Mupirocin (Bactroban) 1 applic BID TOP Last administered on 11/08/16 09:22; Admin Dose 1 APPLIC; Start 10/22/16 at 21:00 Collagenase (Santyl) 1 applic DAILY TOP Last administered on 11/08/16 09:22; Admin Dose 1 APPLIC; Start 11/02/16 at 09:00 Citric Acid/ Sodium Citrate (Bicitra Liquid (Ped)) 10 meq TID PO Last administered on 11/08/16 13:21; Admin Dose 10 MEQ; Start 11/03/16 at 09:00 Docusate Sodium (Colace Liquid Cup) 200 mg QHS PO Last administered on 21:01; Admin Dose 200 MG; Start 11/03/16 at 21:00 Risperidone (Risperdal) 1 mg QHS PO Last administered on 11/07/16 21:07; Admin Dose 1 MG; Start 11/03/16 at 21:00 Lansoprazole (Prevacid) 30 mg DAILY@06 PO Last administered on 11/08/16 05:14 ; Admin Dose 30 MG; Start 11/03/16 at 06:00 Ferrous Sulfate (Ferrous Sulfate (Ec)) 300 mg DAILY PO ; Start 11/09/16 at 09:00 Gabapentin (Neurontin) 100 mg TID PO Last administered on 11/08/16 13:22; Admin Dose 100 MG; Start 11/08/16 at 13:00 TIARA CISNEROS MD Nov 08, 2016 15:33
[2016-11-08] MEDS: SOD CHLORIDE 0.9% 1,000 ML IV SCH (16:33)
--- NOTE | 2016-11-08 17:19 | CONS ---
Date/Time of Note Date/Time of Note DATE: 11/08/16 TIME: 17:18 Assessment/Plan Assessment/Plan Additional Assessment/Plan Sepsis/SIRS Hypotension, improved Sinus tachycardia, improved Acute kidney injury, improved Respiratory Failure Preserved EF on echocardiogram March 02, 2016 History of intermittent [place] I Chronic pain syndrome Hyperkalemia -Patient with intermittent episodes of sinus tachycardia. Continue telemetry monitoring. Continue to hold any antihypertensive medications. Antibiotics as per primary team. Fluid management and electrolytes as per nephrology Consultation Date/Type/Reason Admit Date/Time Oct 21, 2016 at 15:46 Initial Consult Date 10/20/16 Type of Consultation: cv Referring Provider: JOSÉ ANTONIO MIRZA MD 24 HR Interval Summary Free Text/Dictation Patient seen and examined. Denies shortness of breath, palpitations Exam/Review of Systems Vital Signs Vitals Vital Signs Date Time Temp Pulse Resp B/P Pulse Ox O2 Delivery O2 Flow Rate FiO2 11/08/16 17:00 90 30 96 40 11/08/16 15:19 98.0 107/78 Intake and Output 11/07/16 11/07/16 11/08/16 15:00 23:00 07:00 Intake Total 1220 ml Output Total 2300 ml Balance -1080 ml Exam No apparent distress Constitutional: alert, oriented Head: normocephalic Respiratory: other (Coarse breath sounds bilaterally, no wheezing) Cardiovascular: other (S1-S2 heard), regular rate and rhythm Gastrointestinal: bowel sounds, non-tender, soft Extremities: other (No edema) Results Result Diagram: 11/07/16 0545 11/08/16 0805 Results 24 hrs Laboratory Tests Test 11/08/16 08:05 Sodium Level 138 Potassium Level 5.5 H Chloride Level 107 Carbon Dioxide Level 24 Anion Gap 13 Blood Urea Nitrogen 51 H Creatinine 2.05 H Glucose Level 81 Calcium Level 9.3 Magnesium Level 1.6 L Medications Medications Current Medications Dextrose (D50w Syringe) ONCE PRN IV POC BLOOD GLUCOSE <250 MG/DL; Start at 06:00 Hydromorphone HCl (Dilaudid) 1 mg Q4H PRN IV PAIN Last administered on t 13:22; Admin Dose 1 MG; Start 10/20/16 at 10:00 Acetaminophen (Tylenol Liquid) 650 mg Q4H PRN GTB MILD PAIN LEVEL 1-3 Last administered on 11/01/16 06:29; Admin Dose 650 MG; Start 10/20/16 at 13:30 Ascorbic Acid (Vitamin C) 500 mg DAILY GTB Last administered on 11/08/16 09:21 ; Admin Dose 500 MG; Start 10/20/16 at 14:00 Bisacodyl (Dulcolax Supp) 10 mg Q24H PRN [place] CONSTIPATION; Start 10/20/16 at 13: 30 Enoxaparin Sodium (Lovenox) 30 mg DAILY SC ; Start 10/21/16 at 09:00; Status Future Hold Magnesium Hydroxide (Milk Of Mag) 30 ml DAILY PRN GTB CONSTIPATION; Start 10/20 at 13:30 Polyethylene Glycol (Miralax) 17 gm DAILY GTB Last administered on 11/06/16 09 :08; Admin Dose 17 GM; Start 10/20/16 at 13:30 Zinc Sulfate (Zinc Sulfate) 220 mg DAILY GTB Last administered on 11/08/16 09: 21; Admin Dose 220 MG; Start 10/21/16 at 09:00 Multivit/Ca Carb/ B Cmplx/FA/Prenat (Lilibeth-Linn) 1 tab DAILY GTB Last administered on 11/08/16 09:21; Admin Dose 1 TAB; Start 10/21/16 at 09:00 Acetaminophen/ Hydrocodone Bitart ([place] (5/325)) 1 tab Q6 PRN GTB PAIN LEVEL 1 -5 Last administered on 11/04/16 08:27; Admin Dose 1 TAB; Start 10/20/16 at 14: 00 Miscellaneous Information (Pending Santyl Order For Wound Care) This patient noriega... PRN PRN XX WOUND CARE; Start 10/20/16 at 20:00 Zolpidem Tartrate (Ambien) 5 mg HS PRN PO INSOMNIA Last administered on 21:07; Admin Dose 5 MG; Start 10/20/16 at 21:00 Mupirocin (Bactroban) 1 applic BID TOP Last administered on 11/08/16 09:22; Admin Dose 1 APPLIC; Start 10/22/16 at 21:00 Collagenase (Santyl) 1 applic DAILY TOP Last administered on 11/08/16 09:22; Admin Dose 1 APPLIC; Start 11/02/16 at 09:00 Citric Acid/ Sodium Citrate (Bicitra Liquid (Ped)) 10 meq TID PO Last administered on 11/08/16 13:21; Admin Dose 10 MEQ; Start 11/03/16 at 09:00 Docusate Sodium (Colace Liquid Cup) 200 mg QHS PO Last administered on 21:01; Admin Dose 200 MG; Start 11/03/16 at 21:00 Risperidone (Risperdal) 1 mg QHS PO Last administered on 11/07/16 21:07; Admin Dose 1 MG; Start 11/03/16 at 21:00 Lansoprazole (Prevacid) 30 mg DAILY@06 PO Last administered on 11/08/16 05:14 ; Admin Dose 30 MG; Start 11/03/16 at 06:00 Ferrous Sulfate (Ferrous Sulfate (Ec)) 300 mg DAILY PO ; Start 11/09/16 at 09:00 Gabapentin 100 mg 100 mg TID PO Last administered on 11/08/16 13:22; Admin Dose 100 MG; Start 11/08/16 at 13:00 Magnesium Sulfate 50 ml @ 25 mls/hr ONCE ONCE IVPB Last administered on 16:33; Admin Dose 25 MLS/HR; Start 11/08/16 at 15:30; Stop 11/08/16 at 17: 29 Sodium Chloride (NS) 1,000 ml @ 75 mls/hr [id number] IV Last administered on 11/08 16:33; Admin Dose 75 MLS/HR; Start 11/08/16 at 16:00; Stop 11/09/16 at 18: 39 Deandre Chavez DO Nov 08, 2016 17:19
[2016-11-08] MEDS: ZOLPIDEM 5 MG TAB PO PRN (21:00)
[2016-11-08] MEDS: RISPERIDONE 1 MG TAB PO SCH (21:00)
[2016-11-08] MEDS: DOCUSATE SODIUM 10 MG/ML (10ML CUP) PO SCH (21:00)
[2016-11-09] VITALS (24 sets, daily range): BP systolic 106–122; BP diastolic 60–80; PULSE 84–121; RESP 16–30
[2016-11-09] MEDS: HYDROmorphONE 1 MG/ML SYG IV PRN ×6 (01:07→23:29)
[2016-11-09] MEDS: LEVALBUTEROL (HFA) 15 GM INHALER INH SCH ×4 (01:18→19:09)
[2016-11-09] MEDS: IPRATROPIUM (HFA) 12.9 GM INHALER INH SCH ×4 (01:19→19:09)
[2016-11-09] MEDS: LANSOPRAZOLE 30 MG CAP PO SCH (05:13)
[2016-11-09] MEDS: SOD CHLORIDE 0.9% 1,000 ML IV SCH (05:13)
[2016-11-09] MEDS: POLYETHYLENE GLYCOL 17 GM PACKET GTB SCH (09:00)
--- NOTE | 2016-11-09 09:31 | CONS ---
Date/Time of Note Date/Time of Note DATE: 11/09/16 TIME: 09:29 Assessment/Plan Assessment/Plan Additional Assessment/Plan 1. Acute kidney injury secondary to severe prerenal azotemia and possible acute tubular necrosis. 2. Acute uremia with a BUN of 46, Cr 1.42 on admission 3. Acute hyperkalemia- resolved 5. 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 6. History of neurogenic bladder with urinary retention, status post suprapubic catheter. 7. History of previous recurrent urinary tract infections. 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 9. 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 10. Other medical history includes anxiety, depression, bipolar disorder, psychosis. 11. History of right nephrectomy with left renal nephrolithiasis and a left renal cyst measuring 5.3 cm in size. 12. Hyperkalemia Plan: - Cr bumped to 2.05 yestrday pt was given kayexalate yesterday, no labs today to review yet, Currenlty he is getting 2 L NS IVF Due to bump in Creatinine Magnesium was replaced yesterday, will order AM labs for tomorrow - IV abx as per ID, renally dose all abx and Monitor electrolytes. - will follow up Consultation Date/Type/Reason Admit Date/Time Oct 21, 2016 at 15:46 Initial Consult Date 10/20/16 Type of Consultation: NEPHROLOGY Referring Provider: JOSÉ ANTONIO MIRZA MD 24 HR Interval Summary Free Text/Dictation NO labs today to review, pt was given Kayexalate, 2 L NS and Magensium replacement yesterday Exam/Review of Systems Vital Signs Vitals Vital Signs Date Time Temp Pulse Resp B/P Pulse Ox O2 Delivery O2 Flow Rate FiO2 11/09/16 08:00 84 11/09/16 07:22 98.4 19 106/66 97 11/09/16 05:30 40 Intake and Output 11/08/16 11/08/16 11/09/16 15:00 23:00 07:00 Intake Total 2000 ml 3100 ml Output Total 2200 ml 2900 ml Balance -200 ml 200 ml Exam Constitutional: alert ENMT: nl external ears & nose, other (+ tracheostomy on ventilator ) Respiratory: clear to auscultation, crackles/rales Cardiovascular: nl pulses, regular rate and rhythm Gastrointestinal: non-tender, other (+ G tube placement ), soft Musculoskeletal: quadruplegic Results Result Diagram: 11/07/16 0545 11/08/16 0805 Medications Medications Current Medications Dextrose (D50w Syringe) ONCE PRN IV POC BLOOD GLUCOSE <250 MG/DL; Start at 06:00 Hydromorphone HCl (Dilaudid) 1 mg Q4H PRN IV PAIN Last administered on 06:23; Admin Dose 1 MG; Start 10/20/16 at 10:00 Acetaminophen (Tylenol Liquid) 650 mg Q4H PRN GTB MILD PAIN LEVEL 1-3 Last administered on 11/01/16 06:29; Admin Dose 650 MG; Start 10/20/16 at 13:30 Ascorbic Acid (Vitamin C) 500 mg DAILY GTB Last administered on 11/08/16 09:21 ; Admin Dose 500 MG; Start 10/20/16 at 14:00 Bisacodyl (Dulcolax Supp) 10 mg Q24H PRN [place] CONSTIPATION; Start 10/20/16 at 13: 30 Enoxaparin Sodium (Lovenox) 30 mg DAILY SC ; Start 10/21/16 at 09:00; Status Future Hold Magnesium Hydroxide (Milk Of Mag) 30 ml DAILY PRN GTB CONSTIPATION; Start 10/20 at 13:30 Polyethylene Glycol (Miralax) 17 gm DAILY GTB Last administered on 11/06/16 09 :08; Admin Dose 17 GM; Start 10/20/16 at 13:30 Zinc Sulfate (Zinc Sulfate) 220 mg DAILY GTB Last administered on 11/08/16 09: 21; Admin Dose 220 MG; Start 10/21/16 at 09:00 Multivit/Ca Carb/ B Cmplx/FA/Prenat (Lilibeth-L[place]) 1 tab DAILY GTB Last administered on 11/08/16 09:21; Admin Dose 1 TAB; Start 10/21/16 at 09:00 Acetaminophen/ Hydrocodone Bitart ([place] (5/325)) 1 tab Q6 PRN GTB PAIN LEVEL 1 -5 Last administered on 11/04/16 08:27; Admin Dose 1 TAB; Start 10/20/16 at 14: 00 Miscellaneous Information (Pending Santyl Order For Wound Care) This patient noriega... PRN PRN XX WOUND CARE; Start 10/20/16 at 20:00 Zolpidem Tartrate (Ambien) 5 mg HS PRN PO INSOMNIA Last administered on 21:00; Admin Dose 5 MG; Start 10/20/16 at 21:00 Mupirocin (Bactroban) 1 applic BID TOP Last administered on 11/08/16 21:04; Admin Dose 1 APPLIC; Start 10/22/16 at 21:00 Collagenase (Santyl) 1 applic DAILY TOP Last administered on 11/08/16 09:22; Admin Dose 1 APPLIC; Start 11/02/16 at 09:00 Citric Acid/ Sodium Citrate (Bicitra Liquid (Ped)) 10 meq TID PO Last administered on 11/08/16 21:01; Admin Dose 10 MEQ; Start 11/03/16 at 09:00 Docusate Sodium (Colace Liquid Cup) 200 mg QHS PO Last administered on 21:01; Admin Dose 200 MG; Start 11/03/16 at 21:00 Risperidone (Risperdal) 1 mg QHS PO Last administered on 11/08/16 21:00; Admin Dose 1 MG; Start 11/03/16 at 21:00 Lansoprazole (Prevacid) 30 mg DAILY@06 PO Last administered on 11/09/16 05:13 ; Admin Dose 30 MG; Start 11/03/16 at 06:00 Ferrous Sulfate (Ferrous Sulfate (Ec)) 300 mg DAILY PO ; Start 11/09/16 at 09:00 Gabapentin 100 mg 100 mg TID PO Last administered on 11/08/16 21:00; Admin Dose 100 MG; Start 11/08/16 at 13:00 Sodium Chloride (NS) 1,000 ml @ 75 mls/hr [id number] IV Last administered on 11/09 05:13; Admin Dose 75 MLS/HR; Start 11/08/16 at 16:00; Stop 11/09/16 at 18: 39 TIARA CISNEROS MD Nov 09, 2016 09:31
[2016-11-09] MEDS: GABAPENTIN 100 MG CAP PO SCH ×3 (09:56→20:33)
[2016-11-09] MEDS: MUPIROCIN 2% 22 GM OINT TOP SCH ×2 (09:56→20:35)
[2016-11-09] MEDS: ASCORBIC ACID 500 MG TAB GTB SCH (09:56)
[2016-11-09] MEDS: MULTIVIT/CA CARB/B CMPLX/FA TAB GTB SCH (09:56)
[2016-11-09] MEDS: CITRIC ACID/NA CIT (1 MEQ/ML POSYG) PO SCH ×3 (09:56→20:33)
[2016-11-09] MEDS: ZINC SULFATE 220 MG CAP GTB SCH (09:56)
[2016-11-09] MEDS: FERROUS SULFATE (EC) 325 MG TAB PO SCH (09:56)
[2016-11-09] MEDS: COLLAGENASE 30 GM TUBE TOP SCH (09:57)
[2016-11-09 10:48] LABS: CREATININE 1.92 mg/dl (0.61-1.24); POTASSIUM 4.8 mmol/L (3.5-5.1)
--- NOTE | 2016-11-09 11:23 | CONS ---
Date/Time of Note Date/Time of Note DATE: 11/09/16 TIME: 11:22 Assessment/Plan Assessment/Plan Additional Assessment/Plan Sepsis/SIRS Hypotension, improved Sinus tachycardia, improved Acute kidney injury, improved Respiratory Failure Preserved EF on echocardiogram March 02, 2016 History of intermittent Mobitz I Chronic pain syndrome Hyperkalemia -Patient with intermittent episodes of sinus tachycardia. Continue telemetry monitoring. Continue to hold any antihypertensive medications. Antibiotics as per primary team. Fluid management and electrolytes as per nephrology Consultation Date/Type/Reason Admit Date/Time Oct 21, 2016 at 15:46 Initial Consult Date 10/20/16 Type of Consultation: cv Referring Provider: JOSÉ ANTONIO MIRZA MD 24 HR Interval Summary Free Text/Dictation Denies shortness of breath, palpitations or chest pain Exam/Review of Systems Vital Signs Vitals Vital Signs Date Time Temp Pulse Resp B/P Pulse Ox O2 Delivery O2 Flow Rate FiO2 11/09/16 08:45 45 11/09/16 08:00 84 11/09/16 07:22 98.4 19 106/66 97 Intake and Output 11/08/16 11/08/16 11/09/16 15:00 23:00 07:00 Intake Total 2000 ml 3100 ml Output Total 2200 ml 2900 ml Balance -200 ml 200 ml Exam No apparent distress Constitutional: alert, oriented Head: normocephalic Neck: other (Trach) Respiratory: other (Coarse breath sounds bilaterally, no wheezing) Cardiovascular: other (S1-S2 heard), regular rate and rhythm Gastrointestinal: bowel sounds, non-tender, soft Extremities: other (No edema) Results Result Diagram: 11/07/16 0545 11/09/16 0952 Results 24 hrs Laboratory Tests Test 11/09/16 09:52 Sodium Level 144 Potassium Level 4.8 Chloride Level 112 H Carbon Dioxide Level 22 Anion Gap 15 Blood Urea Nitrogen 48 H Creatinine 1.92 H Glucose Level 96 Calcium Level 9.0 Medications Medications Current Medications Dextrose (D50w Syringe) ONCE PRN IV POC BLOOD GLUCOSE <250 MG/DL; Start at 06:00 Hydromorphone HCl (Dilaudid) 1 mg Q4H PRN IV PAIN Last administered on t 09:55; Admin Dose 1 MG; Start 10/20/16 at 10:00 Acetaminophen (Tylenol Liquid) 650 mg Q4H PRN GTB MILD PAIN LEVEL 1-3 Last administered on 11/01/16 06:29; Admin Dose 650 MG; Start 10/20/16 at 13:30 Ascorbic Acid (Vitamin C) 500 mg DAILY GTB Last administered on 11/09/16 09:56 ; Admin Dose 500 MG; Start 10/20/16 at 14:00 Bisacodyl (Dulcolax Supp) 10 mg Q24H PRN [place] CONSTIPATION; Start 10/20/16 at 13: 30 Enoxaparin Sodium (Lovenox) 30 mg DAILY SC ; Start 10/21/16 at 09:00; Status Future Hold Magnesium Hydroxide (Milk Of Mag) 30 ml DAILY PRN GTB CONSTIPATION; Start 10/20 at 13:30 Polyethylene Glycol (Miralax) 17 gm DAILY GTB Last administered on 11/06/16 09 :08; Admin Dose 17 GM; Start 10/20/16 at 13:30 Zinc Sulfate (Zinc Sulfate) 220 mg DAILY GTB Last administered on 11/09/16 09: 56; Admin Dose 220 MG; Start 10/21/16 at 09:00 Multivit/Ca Carb/ B Cmplx/FA/Prenat ([place]ilibeth-L[place]) 1 tab DAILY GTB Last administered on 11/09/16 09:56; Admin Dose 1 TAB; Start 10/21/16 at 09:00 Acetaminophen/ Hydrocodone Bitart ([place] (5/325)) 1 tab Q6 PRN GTB PAIN LEVEL 1 -5 Last administered on 11/04/16 08:27; Admin Dose 1 TAB; Start 10/20/16 at 14: 00 Miscellaneous Information (Pending Santyl Order For Wound Care) This patient noriega... PRN PRN XX WOUND CARE; Start 10/20/16 at 20:00 Zolpidem Tartrate (Ambien) 5 mg HS PRN PO INSOMNIA Last administered on 21:00; Admin Dose 5 MG; Start 10/20/16 at 21:00 Mupirocin (Bactroban) 1 applic BID TOP Last administered on 11/09/16 09:56; Admin Dose 1 APPLIC; Start 10/22/16 at 21:00 Collagenase (Santyl) 1 applic DAILY TOP Last administered on 11/09/16 09:57; Admin Dose 1 APPLIC; Start 11/02/16 at 09:00 Citric Acid/ Sodium Citrate (Bicitra Liquid (Ped)) 10 meq TID PO Last administered on 11/09/16 09:56; Admin Dose 10 MEQ; Start 11/03/16 at 09:00 Docusate Sodium (Colace Liquid Cup) 200 mg QHS PO Last administered on 21:01; Admin Dose 200 MG; Start 11/03/16 at 21:00 Risperidone (Risperdal) 1 mg QHS PO Last administered on 11/08/16 21:00; Admin Dose 1 MG; Start 11/03/16 at 21:00 Lansoprazole (Prevacid) 30 mg DAILY@06 PO Last administered on 11/09/16 05:13 ; Admin Dose 30 MG; Start 11/03/16 at 06:00 Ferrous Sulfate (Ferrous Sulfate (Ec)) 300 mg DAILY PO Last administered on 09:56; Admin Dose 300 MG; Start 11/09/16 at 09:00 Gabapentin 100 mg 100 mg TID PO Last administered on 11/09/16 09:56; Admin Dose 100 MG; Start 11/08/16 at 13:00 Sodium Chloride (NS) 1,000 ml @ 75 mls/hr [id number] IV Last administered on 11/09 05:13; Admin Dose 75 MLS/HR; Start 11/08/16 at 16:00; Stop 11/09/16 at 18: 39 Deandre Chavez DO Nov 09, 2016 11:23
--- NOTE | 2016-11-09 17:36 | PN ---
Date/Time of Note Date/Time of Note DATE: 11/09/16 TIME: 17:34 Assessment/Plan VTE Prophylaxis VTE Prophylaxis Intervention: SCD's Lines/Catheters IV Catheter Type (from Nrsg): PICC Line Central line still needed: Yes Urinary Cath still in place: Yes (SUPRAPUBIC) Reason Cath still needed: urinary retention Assessment/Plan Chief Complaint/Hosp Course K is 4.8, d/c planning to [facility], during D/c process pt complained of chest pain, will obtain 12 lead EKG and troponin *3 Assessment/Plan - VRE in urine, completed treatment with Zyvox. - Possible scabies, continue on Elimite - Sepsis due to HCAP, urinary tract infection, resolved. - Neurogenic bladder with suprapubic catheter. - Left renal nephrolithiasis, Dr Marquez is following in urology consultation. S /p lithotripsy and movable of a left ureteral JJ stent by Dr. Marquez 10/29. - Acute kidney injury on chronic kidney disease. Continue to monitor renal function. - Status post right nephrectomy - Ventilator-dependent respiratory failure with tracheostomy. - Dysphagia with percutaneous endoscopic gastrostomy tube. - Multiple decubitus ulcers present on admission. - Cervical spine injury with paraplegia. - Bipolar disorder with psychosis. Further recommendations based on clinical course. Plan of care discussed with Dr. Barreto. Problems: Exam/Review of Systems Vital Signs Vitals Vital Signs Date Time Temp Pulse Resp B/P Pulse Ox O2 Delivery O2 Flow Rate FiO2 11/09/16 17:07 103 27 96 40 11/09/16 15:21 98.5 116/80 Intake and Output 11/08/16 11/08/16 11/09/16 15:00 23:00 07:00 Intake Total 2000 ml 3100 ml Output Total 2200 ml 2900 ml Balance -200 ml 200 ml Exam Constitutional: alert Psych: confusion Head: normocephalic Neck: other (trach), supple Respiratory: normal air movement Cardiovascular: nl pulses Gastrointestinal: non-tender, other (Gtube), soft Musculoskeletal: muscle weakness Results Result Diagram: 11/07/16 0545 11/09/16 0952 Results 24 hrs Laboratory Tests Test 11/09/16 09:52 Sodium Level 144 Potassium Level 4.8 Chloride Level 112 H Carbon Dioxide Level 22 Anion Gap 15 Blood Urea Nitrogen 48 H Creatinine 1.92 H Glucose Level 96 Calcium Level 9.0 Medications Medications Current Medications Dextrose (D50w Syringe) ONCE PRN IV POC BLOOD GLUCOSE <250 MG/DL; Start at 06:00 Hydromorphone HCl (Dilaudid) 1 mg Q4H PRN IV PAIN Last administered on 15:06; Admin Dose 1 MG; Start 10/20/16 at 10:00 Acetaminophen (Tylenol Liquid) 650 mg Q4H PRN GTB MILD PAIN LEVEL 1-3 Last administered on 11/01/16 06:29; Admin Dose 650 MG; Start 10/20/16 at 13:30 Ascorbic Acid (Vitamin C) 500 mg DAILY GTB Last administered on 11/09/16 09:56 ; Admin Dose 500 MG; Start 10/20/16 at 14:00 Bisacodyl (Dulcolax Supp) 10 mg Q24H PRN [place] CONSTIPATION; Start 10/20/16 at 13: 30 Enoxaparin Sodium (Lovenox) 30 mg DAILY SC ; Start 10/21/16 at 09:00; Status Future Hold Magnesium Hydroxide (Milk Of Mag) 30 ml DAILY PRN GTB CONSTIPATION; Start 10/20 at 13:30 Polyethylene Glycol (Miralax) 17 gm DAILY GTB Last administered on 11/06/16 09 :08; Admin Dose 17 GM; Start 10/20/16 at 13:30 Zinc Sulfate (Zinc Sulfate) 220 mg DAILY GTB Last administered on 11/09/16 09: 56; Admin Dose 220 MG; Start 10/21/16 at 09:00 Multivit/Ca Carb/ B Cmplx/FA/Prenat (Lilibeth-Linn) 1 tab DAILY GTB Last administered on 11/09/16 09:56; Admin Dose 1 TAB; Start 10/21/16 at 09:00 Acetaminophen/ Hydrocodone Bitart ([place] (5/325)) 1 tab Q6 PRN GTB PAIN LEVEL 1 -5 Last administered on 11/04/16 08:27; Admin Dose 1 TAB; Start 10/20/16 at 14: 00 Miscellaneous Information (Pending Santyl Order For Wound Care) This patient noriega... PRN PRN XX WOUND CARE; Start 10/20/16 at 20:00 Zolpidem Tartrate (Ambien) 5 mg HS PRN PO INSOMNIA Last administered on 21:00; Admin Dose 5 MG; Start 10/20/16 at 21:00 Mupirocin (Bactroban) 1 applic BID TOP Last administered on 11/09/16 09:56; Admin Dose 1 APPLIC; Start 10/22/16 at 21:00 Collagenase (Santyl) 1 applic DAILY TOP Last administered on 11/09/16 09:57; Admin Dose 1 APPLIC; Start 11/02/16 at 09:00 Citric Acid/ Sodium Citrate (Bicitra Liquid (Ped)) 10 meq TID PO Last administered on 11/09/16 09:56; Admin Dose 10 MEQ; Start 11/03/16 at 09:00 Docusate Sodium (Colace Liquid Cup) 200 mg QHS PO Last administered on 21:01; Admin Dose 200 MG; Start 11/03/16 at 21:00 Risperidone (Risperdal) 1 mg QHS PO Last administered on 11/08/16 21:00; Admin Dose 1 MG; Start 11/03/16 at 21:00 Lansoprazole (Prevacid) 30 mg DAILY@06 PO Last administered on 11/09/16 05:13 ; Admin Dose 30 MG; Start 11/03/16 at 06:00 Ferrous Sulfate (Ferrous Sulfate (Ec)) 300 mg DAILY PO Last administered on 09:56; Admin Dose 300 MG; Start 11/09/16 at 09:00 Gabapentin 100 mg 100 mg TID PO Last administered on 11/09/16 09:56; Admin Dose 100 MG; Start 11/08/16 at 13:00 Sodium Chloride (NS) 1,000 ml @ 75 mls/hr [id number] IV Last administered on 11/09 05:13; Admin Dose 75 MLS/HR; Start 11/08/16 at 16:00; Stop 11/09/16 at 18: 39 AISSATOU DUNCAN Nov 09, 2016 17:36
--- NOTE | 2016-11-09 19:00 | PN ---
DATE: 11/09/2016 PULMONARY FOLLOWUP NOTE The patient is resting comfortably. He is on long-term ventilator support through tracheostomy. He shows no signs of respiratory distress. He is awake and alert, able to verbalize. PHYSICAL EXAMINATION: VITAL SIGNS: Stable. Temperature is 98.1, blood pressure 109/66, pulse rate of 85, respirations 19 , pulse oximetry 98% saturation on 40% inhaled oxygen concentration. NECK: Tracheal secretions are clear. No bleeding is seen. HEART: Regular rhythm. CHEST: Breath sounds are heard, diminished in the lower lung tier[place], otherwise clear. ABDOMEN: Soft, nondistended, tolerating oral feedings. Normal bowel sounds. No vomiting has been reported. EXTREMITIES: Show no edema. He is paraplegic. LABORATORY DATA: Show sodium 144, potassium 4.8, BUN is 48, creatinine 1.9, glucose is 96. IMPRESSION: 1. Chronic ventilator dependent respiratory failure. 2. Urinary tract infection with vancomycin-resistant enterococcus. Completed antibiotic therapy. 3. Chronic kidney disease. 4. Nephrolithiasis, status post lithotripsy. 5. Chronic anemia. 6. Chronic bilateral pleural effusions. 7. 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 PLAN: 1. Continue long-term ventilator support. 2. Continue bronchodilator inhalation therapy. 3. Continue oral feedings. The patient is scheduled to be transferred back to the long-term care facility later today. I will continue to follow him after this transfer for his pulmonary management. Dictated By: HUMBERTO PEREZ MD, SR/QUE Conf#: [id number] DID#: [id number]
[2016-11-09] MEDS: ZOLPIDEM 5 MG TAB PO PRN (20:33)
[2016-11-09] MEDS: RISPERIDONE 1 MG TAB PO SCH (20:33)
[2016-11-09] MEDS: DOCUSATE SODIUM 10 MG/ML (10ML CUP) PO SCH (20:34)
[2016-11-09] MEDS: HYDROCODONE/APAP (5/325) TAB GTB PRN (22:25)
[2016-11-10] VITALS (19 sets, daily range): BP systolic 94–111; BP diastolic 55–69; PULSE 90–106; RESP 16–24
[2016-11-10] MEDS: LEVALBUTEROL (HFA) 15 GM INHALER INH SCH ×3 (01:27→14:00)
[2016-11-10] MEDS: IPRATROPIUM (HFA) 12.9 GM INHALER INH SCH ×3 (01:28→14:00)
[2016-11-10] MEDS: HYDROmorphONE 1 MG/ML SYG IV PRN ×4 (03:27→15:58)
[2016-11-10] MEDS: LANSOPRAZOLE 30 MG CAP PO SCH (05:18)
--- NOTE | 2016-11-10 08:04 | PN ---
DATE: 11/09/2016 SUBJECTIVE: No acute events overnight. The patient is lying comfortably in bed. No fevers. Vital signs stable. No labs this morning. PHYSICAL EXAMINATION: GENERAL: Chronically ill-appearing, quadriplegic man who is in no distress. HEENT: Head atraumatic, normocephalic. Sclerae anicteric. Buccal mucosa dry. NECK: Supple. Tracheostomy present. CHEST: Rise symmetrical. Breath sounds diminished to bases. HEART: S1, S2. ABDOMEN: Soft, bowel tones present. EXTREMITIES: Wasted without cyanosis. ASSESSMENT: 1. Status post sepsis urinary tract infection pneumonia. 2. Status post scabies, treated. 3. Status post JJ stent removal. 4. Multiple chronic decubitus. 5. History of right nephrectomy. PLAN: Patient remains stable off antibiotics. Continue present care pending . Dictated By: REGINALDO CHERY MAIL CLERK for [employer]/QUE Conf#: [id number] DID#: [id number]
--- NOTE | 2016-11-10 08:15 | PN ---
Date/Time of Note Date/Time of Note DATE: 11/10/16 TIME: 08:14 Assessment/Plan VTE Prophylaxis VTE Prophylaxis Intervention: SCD's Lines/Catheters IV Catheter Type (from Nrsg): Peripheral IV Urinary Cath still in place: Yes (SUPRAPUBIC) Reason Cath still needed: urinary retention Assessment/Plan Assessment/Plan Sepsis/SIRS Hypotension, improved Sinus tachycardia, improved Acute kidney injury, improved Respiratory Failure Preserved EF on echocardiogram March 02, 2016 History of intermittent Mobitz I Chronic pain syndrome Hyperkalemia -Patient with intermittent episodes of sinus tachycardia. Continue telemetry monitoring. Continue to hold any antihypertensive medications. Antibiotics as per primary team. Fluid management and electrolytes as per nephrology Subjective 24 Hr Interval Summary Free Text/Dictation The patient with no ahgne overnight Exam/Review of Systems Vital Signs Vitals Vital Signs Date Time Temp Pulse Resp B/P Pulse Ox O2 Delivery O2 Flow Rate FiO2 11/10/16 07:51 98.3 100 19 111/69 96 11/10/16 05:00 40 Intake and Output 11/09/16 11/09/16 11/10/16 15:00 23:00 07:00 Intake Total 600 ml 1200 ml Output Total 1000 ml 1600 ml Balance -400 ml -400 ml Results Result Diagram: 11/07/16 0545 11/09/16 0952 Results 24 hrs Laboratory Tests Test 11/09/16 09:52 11/09/16 18:18 11/10/16 00:55 Sodium Level 144 Potassium Level 4.8 Chloride Level 112 H Carbon Dioxide Level 22 Anion Gap 15 Blood Urea Nitrogen 48 H Creatinine 1.92 H Glucose Level 96 Calcium Level 9.0 Troponin I < 0.012 < 0.012 Medications Medications Current Medications Dextrose (D50w Syringe) ONCE PRN IV POC BLOOD GLUCOSE <250 MG/DL; Start at 06:00 Hydromorphone HCl (Dilaudid) 1 mg Q4H PRN IV PAIN Last administered on 07:48; Admin Dose 1 MG; Start 10/20/16 at 10:00 Acetaminophen (Tylenol Liquid) 650 mg Q4H PRN GTB MILD PAIN LEVEL 1-3 Last administered on 11/01/16 06:29; Admin Dose 650 MG; Start 10/20/16 at 13:30 Ascorbic Acid (Vitamin C) 500 mg DAILY GTB Last administered on 11/09/16 09:56 ; Admin Dose 500 MG; Start 10/20/16 at 14:00 Bisacodyl (Dulcolax Supp) 10 mg Q24H PRN [place] CONSTIPATION; Start 10/20/16 at 13: 30 Enoxaparin Sodium (Lovenox) 30 mg DAILY SC ; Start 10/21/16 at 09:00; Status Future Hold Magnesium Hydroxide (Milk Of Mag) 30 ml DAILY PRN GTB CONSTIPATION; Start 10/20 at 13:30 Polyethylene Glycol (Miralax) 17 gm DAILY GTB Last administered on 11/06/16 09 :08; Admin Dose 17 GM; Start 10/20/16 at 13:30 Zinc Sulfate (Zinc Sulfate) 220 mg DAILY GTB Last administered on 11/09/16 09: 56; Admin Dose 220 MG; Start 10/21/16 at 09:00 Multivit/Ca Carb/ B Cmplx/FA/Prenat (Lilibeth-Linn) 1 tab DAILY GTB Last administered on 11/09/16 09:56; Admin Dose 1 TAB; Start 10/21/16 at 09:00 Acetaminophen/ Hydrocodone Bitart ([place] (5/325)) 1 tab Q6 PRN GTB PAIN LEVEL 1 -5 Last administered on 11/09/16 22:25; Admin Dose 1 TAB; Start 10/20/16 at 14: 00 Miscellaneous Information (Pending Santyl Order For Wound Care) This patient noriega... PRN PRN XX WOUND CARE; Start 10/20/16 at 20:00 Zolpidem Tartrate (Ambien) 5 mg HS PRN PO INSOMNIA Last administered on 20:33; Admin Dose 5 MG; Start 10/20/16 at 21:00 Mupirocin (Bactroban) 1 applic BID TOP Last administered on 11/09/16 20:35; Admin Dose 1 APPLIC; Start 10/22/16 at 21:00 Collagenase (Santyl) 1 applic DAILY TOP Last administered on 11/09/16 09:57; Admin Dose 1 APPLIC; Start 11/02/16 at 09:00 Citric Acid/ Sodium Citrate (Bicitra Liquid (Ped)) 10 meq TID PO Last administered on 11/09/16 20:33; Admin Dose 10 MEQ; Start 11/03/16 at 09:00 Docusate Sodium (Colace Liquid Cup) 200 mg QHS PO Last administered on 21:01; Admin Dose 200 MG; Start 11/03/16 at 21:00 Risperidone (Risperdal) 1 mg QHS PO Last administered on 11/09/16 20:33; Admin Dose 1 MG; Start 11/03/16 at 21:00 Lansoprazole (Prevacid) 30 mg DAILY@06 PO Last administered on 11/10/16 05:18 ; Admin Dose 30 MG; Start 11/03/16 at 06:00 Ferrous Sulfate (Ferrous Sulfate (Ec)) 300 mg DAILY PO Last administered on 09:56; Admin Dose 300 MG; Start 11/09/16 at 09:00 Gabapentin (Neurontin) 100 mg TID PO Last administered on 11/09/16 20:33; Admin Dose 100 MG; Start 11/08/16 at 13:00 YIN RUSH MD Nov 10, 2016 08:15
[2016-11-10] MEDS: POLYETHYLENE GLYCOL 17 GM PACKET GTB SCH (09:00)
[2016-11-10] MEDS: MUPIROCIN 2% 22 GM OINT TOP SCH (09:29)
[2016-11-10] MEDS: MULTIVIT/CA CARB/B CMPLX/FA TAB GTB SCH (09:29)
[2016-11-10] MEDS: ZINC SULFATE 220 MG CAP GTB SCH (09:29)
[2016-11-10] MEDS: COLLAGENASE 30 GM TUBE TOP SCH (09:29)
[2016-11-10] MEDS: GABAPENTIN 100 MG CAP PO SCH ×2 (09:29→12:00)
[2016-11-10] MEDS: CITRIC ACID/NA CIT (1 MEQ/ML POSYG) PO SCH ×2 (09:29→14:47)
[2016-11-10] MEDS: FERROUS SULFATE (EC) 325 MG TAB PO SCH (09:29)
[2016-11-10] MEDS: ASCORBIC ACID 500 MG TAB GTB SCH (09:29)
--- NOTE | 2016-11-10 09:29 | RADRPT ---
Vent Rate: 101 bpm RR Interval: 0 msec CO Interval: 160 msec QRS Duration: 92 msec QT Interval: 336 msec QTC Interval: 435 msec P-R-T [place]: 52 - 40 - 62 degrees Sinus tachycardia Otherwise normal ECG Electronically Signed By: Yasir Hart [id number]
[2016-11-10] MEDS: HYDROCODONE/APAP (5/325) TAB GTB PRN (09:41)
--- NOTE | 2016-11-10 13:31 | CONS ---
Date/Time of Note Date/Time of Note DATE: 11/10/16 TIME: 13:30 Assessment/Plan Assessment/Plan Chief Complaint/Hosp Course SUBJECTIVE DATA: No acute changes overnight. The patient is alert, looks comfortable. Denies pain. No fevers. INDWELLINGS: Trach, PEG, suprapubic catheter. PHYSICAL EXAMINATION: GENERAL: Well developed, chronically ill-appearing, middle-aged, quadriplegic man, who is in no distress. HEENT: Head atraumatic, normocephalic. Sclerae anicteric. Buccal mucosa dry. NECK: Supple. Tracheostomy present. CHEST: Chest rise symmetrical. Breath sounds diminished to bases. HEART: S1, S2. ABDOMEN: Soft, bowel sounds present. EXTREMITIES: Without cyanosis, wasted. ASSESSMENT: 1. Status post septic shock/PNA. 2. S/p VRE UTI. 3. Scabies-==> treated with Elimite and ivermectin. 4. History of right nephrectomy. 5. Status post shockwave lithotripsy with removal of old stent. 6. Multiple chronic wounds. PLAN: The patient remains stable, off abx. Continue present care, pending dc staff Problems: Consultation Date/Type/Reason Admit Date/Time Oct 21, 2016 at 15:46 Initial Consult Date 10/20/16 Type of Consultation: id Referring Provider: JOSÉ ANTONIO MIRZA MD Exam/Review of Systems Vital Signs Vitals Vital Signs Date Time Temp Pulse Resp B/P Pulse Ox O2 Delivery O2 Flow Rate FiO2 11/10/16 12:22 94 11/10/16 11:51 98.1 19 96/55 98 11/10/16 05:00 40 Intake and Output 11/09/16 11/09/16 11/10/16 15:00 23:00 07:00 Intake Total 600 ml 1200 ml Output Total 1000 ml 1600 ml Balance -400 ml -400 ml Results Result Diagram: 11/07/16 0545 11/09/16 0952 Results 24 hrs Laboratory Tests Test 11/09/16 18:18 11/10/16 00:55 Troponin I < 0.012 < 0.012 Medications Medications Current Medications Dextrose (D50w Syringe) ONCE PRN IV POC BLOOD GLUCOSE <250 MG/DL; Start at 06:00 Hydromorphone HCl (Dilaudid) 1 mg Q4H PRN IV PAIN Last administered on 12:00; Admin Dose 1 MG; Start 10/20/16 at 10:00 Acetaminophen (Tylenol Liquid) 650 mg Q4H PRN GTB MILD PAIN LEVEL 1-3 Last administered on 11/01/16 06:29; Admin Dose 650 MG; Start 10/20/16 at 13:30 Ascorbic Acid (Vitamin C) 500 mg DAILY GTB Last administered on 11/10/16 09:29 ; Admin Dose 500 MG; Start 10/20/16 at 14:00 Bisacodyl (Dulcolax Supp) 10 mg Q24H PRN [place] CONSTIPATION; Start 10/20/16 at 13: 30 Enoxaparin Sodium (Lovenox) 30 mg DAILY SC ; Start 10/21/16 at 09:00; Status Future Hold Magnesium Hydroxide (Milk Of Mag) 30 ml DAILY PRN GTB CONSTIPATION; Start 10/20 at 13:30 Polyethylene Glycol (Miralax) 17 gm DAILY GTB Last administered on 11/06/16 09 :08; Admin Dose 17 GM; Start 10/20/16 at 13:30 Zinc Sulfate (Zinc Sulfate) 220 mg DAILY GTB Last administered on 11/10/16 09: 29; Admin Dose 220 MG; Start 10/21/16 at 09:00 Multivit/Ca Carb/ B Cmplx/FA/Prenat ([place]ilibeth-L[place]) 1 tab DAILY GTB Last administered on 11/10/16 09:29; Admin Dose 1 TAB; Start 10/21/16 at 09:00 Acetaminophen/ Hydrocodone Bitart ([place] (5/325)) 1 tab Q6 PRN GTB PAIN LEVEL 1 -5 Last administered on 11/10/16 09:41; Admin Dose 1 TAB; Start 10/20/16 at 14: 00 Miscellaneous Information (Pending Santyl Order For Wound Care) This patient noriega... PRN PRN XX WOUND CARE; Start 10/20/16 at 20:00 Zolpidem Tartrate (Ambien) 5 mg HS PRN PO INSOMNIA Last administered on 20:33; Admin Dose 5 MG; Start 10/20/16 at 21:00 Mupirocin (Bactroban) 1 applic BID TOP Last administered on 11/10/16 09:29; Admin Dose 1 APPLIC; Start 10/22/16 at 21:00 Collagenase (Santyl) 1 applic DAILY TOP Last administered on 11/10/16 09:29; Admin Dose 1 APPLIC; Start 11/02/16 at 09:00 Citric Acid/ Sodium Citrate (Bicitra Liquid (Ped)) 10 meq TID PO Last administered on 11/10/16 09:29; Admin Dose 10 MEQ; Start 11/03/16 at 09:00 Docusate Sodium (Colace Liquid Cup) 200 mg QHS PO Last administered on 21:01; Admin Dose 200 MG; Start 11/03/16 at 21:00 Risperidone (Risperdal) 1 mg QHS PO Last administered on 11/09/16 20:33; Admin Dose 1 MG; Start 11/03/16 at 21:00 Lansoprazole (Prevacid) 30 mg DAILY@06 PO Last administered on 11/10/16 05:18 ; Admin Dose 30 MG; Start 11/03/16 at 06:00 Ferrous Sulfate (Ferrous Sulfate (Ec)) 300 mg DAILY PO Last administered on 09:29; Admin Dose 300 MG; Start 11/09/16 at 09:00 Gabapentin (Neurontin) 100 mg TID PO Last administered on 11/10/16 12:00; Admin Dose 100 MG; Start 11/08/16 at 13:00 REGINALDO CHERY NP Nov 10, 2016 13:31
--- NOTE | 2016-11-10 16:37 | DS ---
Date/Time of Note Date/Time of Note DATE: 11/10/16 TIME: 16:34 Discharge Summary Admission/Discharge Info Admit Date/Time Oct 21, 2016 at 15:46 Discharge Date/Time Hx of Present Illness Low mag level- will do stat lab HPI This is a 41-year-old male, trach to vent dependentrach to vent dependent, a SNF resident who is quadriplegic secondary to his C5-C6 injury during a wrestling accident at the age of 15. Patient is admitted with high potassium then repeated again which again showed high potassium. also c/o shortness of breath, pain all over and has chronic pain. Denies any fever, chill cough, vomiting or diarrhea. Patient is admitted under DR Barreto for further evaluation and treatment. ROS All systems reviewed and are negative except as per history of present illness. Medications Hospital Course SUBJECTIVE DATA: No acute changes overnight. The patient is alert, looks comfortable. Denies pain. No fevers. INDWELLINGS: Trach, PEG, suprapubic catheter. PHYSICAL EXAMINATION: GENERAL: Well developed, chronically ill-appearing, middle-aged, quadriplegic man, who is in no distress. HEENT: Head atraumatic, normocephalic. Sclerae anicteric. Buccal mucosa dry. NECK: Supple. Tracheostomy present. CHEST: Chest rise symmetrical. Breath sounds diminished to bases. HEART: S1, S2. ABDOMEN: Soft, bowel sounds present. EXTREMITIES: Without cyanosis, wasted. ASSESSMENT: 1. Status post septic shock/PNA. 2. S/p VRE UTI. 3. Scabies-==> treated with Elimite and ivermectin. 4. History of right nephrectomy. 5. Status post shockwave lithotripsy with removal of old stent. 6. Multiple chronic wounds. PLAN: The patient remains stable, off abx. Continue present care, pending dc staff Home Meds Reported Medications Fe Fumarate/Nenita/FA/Bcomp,C (Nephron FA Tablet) 1 Each Tablet, 1 EACH GTB DAILY , TAB 10/20/16 Cran/Vitc/Mannose/Inulin/Brom (Uti-Stat Liquid) 3,875 Mg/30 Ml Liquid, 3875 MG GTB DAILY 10/01/16 Ascorbic Acid* (Ascorbic Acid*) 500 Mg/5 Ml Syrup, 500 MG GTB DAILY, #300 ML 10/01/16 Zinc Sulfate* (Zinc Sulfate*) 220 Mg Tablet, 220 MG GTB DAILY, TAB 10/01/16 Risperidone* (Risperdal* Liq) 1 Mg/Ml Solution, 1 MG GTB QHS, ML 10/01/16 Pantoprazole* (Protonix*) 40 Mg Tablet.dr, 40 MG GTB DAILY, TAB 10/01/16 Hydrocodone/Acetaminophen ([place] 5-325 Tablet) 1 Each Tablet, 1 EACH GTB Q6 Y for SEVERE PAIN LEVEL 7-10, TAB 10/01/16 Gabapentin* (Gabapentin* Liq) 250 Mg/5 Ml Solution, 100 MG GTB TID, ML 10/01/16 Folic Acid/Vitamin B Comp W-C (Nephrocaps Capsule) 1 Mg Capsule, 1 MG GTB DAILY , CAP 10/01/16 Polyethylene Glycol* (Miralax*) 17 Gm Powd.pack, 17 GM GTB DAILY, #30 PACKET 10/01/16 Enoxaparin Sodium* (Lovenox*) 30 Mg/0.3 Ml Disp.syrin, 30 MG SQ DAILY, SYR 10/01/16 Na Phos,M-B/Na Phos,Di-Ba (ENEMA READY TO USE) 135 Ml Enema, 135 ML RC EVERY TWO DAYS Y for CONSTIPATION, ENEMA 10/01/16 Ferrous Sulfate* (Ferrous Sulfate*) 220 Mg/5 Ml Solution, 330 MG GTB DAILY, ML 10/01/16 Bisacodyl* (Bisacodyl*) 10 Mg Supp, 10 MG SC Q24H Y for CONSTIPATION, SUPP 10/01/16 Docusate Sodium* (Colace*) 100 Mg Capsule, 200 MG GTB QHS, #60 CAP 10/01/16 Citric Acid/Sodium Citrate* (Bicitra* (PEDIATRIC)) 1 Meq/Ml Soln, 10 MEQ GTB TID for 30 Days, BOTTLE 550-334ML/5MG 10/01/16 Albuterol Sulfate* (Albuterol Sulfate* Neb) 0.083%-3 Ml Neb, 2.5 MG NEB Q6 Y for WHEEZING AND SOB, #30 VIAL 10/01/16 Albuterol Sulfate* (Albuterol Sulfate* Neb) 0.083%-3 Ml Neb, 2.5 MG NEB Q3H Y for WHEEZING AND SOB, #30 VIAL 05/03/16 Magnesium Hydroxide* (Milk Of Magnesia*) 400 Mg/5 Ml Oral.susp, 30 ML GTB DAILY Y for CONSTIPATION, ML 04/16/15 Acetaminophen* (Tylenol*) 325 Mg Tablet, 650 MG GTB Q4H Y for MILD PAIN LEVEL 1- 3, TAB 04/16/15 Primary Care Provider Hitesh Barreto MD Pending Labs Laboratory Tests Test 11/09/16 18:18 11/10/16 00:55 11/10/16 13:35 Troponin I < 0.012ng/ml (0.00-0.12) < 0.012ng/ml (0.00-0.12) < 0.012ng/ml (0.00-0.12) NAE VELAZCO Nov 10, 2016 16:37
--- NOTE | 2016-11-10 17:09 | CONS ---
Date/Time of Note Date/Time of Note DATE: 11/10/16 TIME: 17:07 Assessment/Plan Assessment/Plan Additional Assessment/Plan 1. Acute kidney injury secondary to severe prerenal azotemia and possible acute tubular necrosis. 2. Acute uremia with a BUN of 46, Cr 1.42 on admission 3. Acute hyperkalemia- resolved 5. 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 6. History of neurogenic bladder with urinary retention, status post suprapubic catheter. 7. History of previous recurrent urinary tract infections. 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 9. 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 10. Other medical history includes anxiety, depression, bipolar disorder, psychosis. 11. History of right nephrectomy with left renal nephrolithiasis and a left renal cyst measuring 5.3 cm in size. 12. Hyperkalemia Plan: - Cr improved to 1.9 from 2.05 with IVF NS- K normal,, Continue current IVF as ordered - IV abx as per ID, renally dose all abx and Monitor electrolytes. - will follow up Consultation Date/Type/Reason Admit Date/Time Oct 21, 2016 at 15:46 Initial Consult Date 10/20/16 Type of Consultation: NEPHROLOGY Referring Provider: JOSÉ ANTONIO MIRZA MD Exam/Review of Systems Vital Signs Vitals Vital Signs Date Time Temp Pulse Resp B/P Pulse Ox O2 Delivery O2 Flow Rate FiO2 11/10/16 16:29 90 11/10/16 16:13 98.2 19 96/57 98 11/10/16 08:30 40 Intake and Output 11/09/16 11/09/16 11/10/16 15:00 23:00 07:00 Intake Total 600 ml 1200 ml Output Total 1000 ml 1600 ml Balance -400 ml -400 ml Exam Constitutional: alert ENMT: nl external ears & nose, other (+ tracheostomy on ventilator ) Respiratory: clear to auscultation, crackles/rales Cardiovascular: nl pulses, regular rate and rhythm Gastrointestinal: non-tender, other (+ G tube placement ), soft Musculoskeletal: quadruplegic Results Result Diagram: 11/07/16 0545 11/09/16 0952 Results 24 hrs Laboratory Tests Test 11/09/16 18:18 11/10/16 00:55 11/10/16 13:35 Troponin I < 0.012 < 0.012 < 0.012 Medications Medications Current Medications Dextrose (D50w Syringe) ONCE PRN IV POC BLOOD GLUCOSE <250 MG/DL; Start at 06:00 Hydromorphone HCl (Dilaudid) 1 mg Q4H PRN IV PAIN Last administered on 15:58; Admin Dose 1 MG; Start 10/20/16 at 10:00 Acetaminophen (Tylenol Liquid) 650 mg Q4H PRN GTB MILD PAIN LEVEL 1-3 Last administered on 11/01/16 06:29; Admin Dose 650 MG; Start 10/20/16 at 13:30 Ascorbic Acid (Vitamin C) 500 mg DAILY GTB Last administered on 11/10/16 09:29 ; Admin Dose 500 MG; Start 10/20/16 at 14:00 Bisacodyl (Dulcolax Supp) 10 mg Q24H PRN [place] CONSTIPATION; Start 10/20/16 at 13: 30 Enoxaparin Sodium (Lovenox) 30 mg DAILY SC ; Start 10/21/16 at 09:00; Status Future Hold Magnesium Hydroxide (Milk Of Mag) 30 ml DAILY PRN GTB CONSTIPATION; Start 10/20 at 13:30 Polyethylene Glycol (Miralax) 17 gm DAILY GTB Last administered on 11/06/16 09 :08; Admin Dose 17 GM; Start 10/20/16 at 13:30 Zinc Sulfate (Zinc Sulfate) 220 mg DAILY GTB Last administered on 11/10/16 09: 29; Admin Dose 220 MG; Start 10/21/16 at 09:00 Multivit/Ca Carb/ B Cmplx/FA/Prenat ([place]) 1 tab DAILY GTB Last administered on 11/10/16 09:29; Admin Dose 1 TAB; Start 10/21/16 at 09:00 Acetaminophen/ Hydrocodone Bitart ([place] (5/325)) 1 tab Q6 PRN GTB PAIN LEVEL 1 -5 Last administered on 11/10/16 09:41; Admin Dose 1 TAB; Start 10/20/16 at 14: 00 Miscellaneous Information (Pending [facility] Order For Wound Care) This patient noriega... PRN PRN XX WOUND CARE; Start 9/14/17 at 20:00 Zolpidem Tartrate (Ambien) 5 mg HS PRN PO INSOMNIA Last administered on 20:33; Admin Dose 5 MG; Start 10/20/16 at 21:00 Mupirocin (Bactroban) 1 applic BID TOP Last administered on 11/10/16 09:29; Admin Dose 1 APPLIC; Start 10/22/16 at 21:00 Collagenase (Santyl) 1 applic DAILY TOP Last administered on 11/10/16 09:29; Admin Dose 1 APPLIC; Start 11/02/16 at 09:00 Citric Acid/ Sodium Citrate (Bicitra Liquid (Ped)) 10 meq TID PO Last administered on 11/10/16 14:47; Admin Dose 10 MEQ; Start 11/03/16 at 09:00 Docusate Sodium (Colace Liquid Cup) 200 mg QHS PO Last administered on 21:01; Admin Dose 200 MG; Start 11/03/16 at 21:00 Risperidone (Risperdal) 1 mg QHS PO Last administered on 11/09/16 20:33; Admin Dose 1 MG; Start 11/03/16 at 21:00 Lansoprazole (Prevacid) 30 mg DAILY@06 PO Last administered on 11/10/16 05:18 ; Admin Dose 30 MG; Start 11/03/16 at 06:00 Ferrous Sulfate (Ferrous Sulfate (Ec)) 300 mg DAILY PO Last administered on 09:29; Admin Dose 300 MG; Start 11/09/16 at 09:00 Gabapentin (Neurontin) 100 mg TID PO Last administered on 11/10/16 12:00; Admin Dose 100 MG; Start 11/08/16 at 13:00 TIARA CISNEROS MD Nov 10, 2016 17:09
== END 2016-11-10 19:50 | DRG 870 ==
LOC: E/R 04:26 → TEL 06:14 → ICU 17:30 → OBSVTOIN 10-21 15:46 → TEL 10-22 17:29
PROVIDERS: ADMIT Internal Medicine; ATTEND Internal Medicine
PROC: 5A1955Z Respiratory Ventilation, Greater than 96 Consecutive Hours (ICD-10-PCS; principal; 2016-10-21)
PROC: 30233N1 Transfusion of Nonautologous Red Blood Cells into Peripheral Vein, Percutaneous Approach (ICD-10-PCS; 2016-10-21)
PROC: 0TP97DZ Removal of Intraluminal Device from Ureter, Via Natural or Artificial Opening (ICD-10-PCS; 2016-10-29)
PROC: 0TF Urinary System, Fragmentation (ICD-10-PCS; 2016-10-29)
PROC: 0T777DZ Dilation of Left Ureter with Intraluminal Device, Via Natural or Artificial Opening (ICD-10-PCS; 2016-10-29)
PROC: 0T2BX0Z Change Drainage Device in Bladder, External Approach (ICD-10-PCS; 2016-10-29)
PROC: BT1F1ZZ Fluoroscopy of Left Kidney, Ureter and Bladder using Low Osmolar Contrast (ICD-10-PCS; 2016-10-29)
DX: A41.89 Other specified sepsis (principal); N17.0 Acute kidney failure with tubular necrosis; R65.21 Severe sepsis with septic shock; G82.50 Quadriplegia, unspecified; Z99.11 Dependence on respirator [ventilator] status; J18.9 Pneumonia, unspecified organism; J90 Pleural effusion, not elsewhere classified; J96.10 Chronic respiratory failure, unspecified whether with hypoxia or hypercapnia; N39.0 Urinary tract infection, site not specified; L89.153 Pressure ulcer of sacral region, stage 3; L89.023 Pressure ulcer of left elbow, stage 3; L89.152 Pressure ulcer of sacral region, stage 2; Z93.0 Tracheostomy status; E87.5 Hyperkalemia; N31.9 Neuromuscular dysfunction of bladder, unspecified; Z93.6 Other artificial openings of urinary tract status; G89.29 Other chronic pain; M62.50 Muscle wasting and atrophy, not elsewhere classified, unspecified site; Z68.21 Body mass index [BMI] 21.0-21.9, adult; R00.0 Tachycardia, unspecified; B86 Scabies; N18.9 Chronic kidney disease, unspecified; D64.9 Anemia, unspecified; Z22.322 Carrier or suspected carrier of Methicillin resistant Staphylococcus aureus; L89.212 Pressure ulcer of right hip, stage 2; L89.312 Pressure ulcer of right buttock, stage 2; L89.022 Pressure ulcer of left elbow, stage 2; L89.012 Pressure ulcer of right elbow, stage 2; F31.9 Bipolar disorder, unspecified; N20.0 Calculus of kidney; A41.9 Sepsis, unspecified organism; Z90.5 Acquired absence of kidney; Z16.21 Resistance to vancomycin; B95.2 Enterococcus as the cause of diseases classified elsewhere
CPT/HCPCS: 36415; 36430; 36600; 71010; 74000; 74176; 74430; 80048; 80053; 80202; 82565; 82803; 83605; 83735; 84132; 84484; 84520; 85025; 85049; 85610; 85670; 85730; 86850; 86870; 86900; 86901; 86920; 87040; 87081; 87086; 88300; 90686; 92526; 92610; 93005; 93306; 94002; 94003; 94640; 96374; 96375; G0378; J1170; J1650; J1815; J2185; J2370; J2405; J3370; J3475; J7030; J7040; J7042; J7050; P9016; Q4081; Q9967

== ENCOUNTER 2016-11-24 18:21 | Inpatient (IN) | payer MEDICARE, OTHER ==
[~2016-11-24] VITALS: Ht 182.9 cm; Wt 66.7 kg
[~2016-11-24 18:21] MED LIST changes: -ACET-141 PO; -ACET-2047 PO; -CHLO473M4 MM; +FE F1TAB7 GTB
[2016-11-24] MEDS ORDERED: SOD CHLORIDE 0.9% 1,000 ML IV STA (19:03)
[2016-11-24] MEDS ORDERED: ONDANSETRON 4 MG INJ IV STA (19:03)
[2016-11-24] MEDS ORDERED: OXYCODONE/ACETAMINOPHEN (5/325) TAB PO ONE (19:30)
[2016-11-24] MEDS ORDERED: MULT9LIQ4 GTB (20:05)
[2016-11-24] MEDS ORDERED: TYL500 PO (20:07)
[2016-11-24] MEDS ORDERED: GABA100C14 GTB (20:15)
[2016-11-24] MEDS ORDERED: HALOPERIDOL 5 MG INJ IV ONE (20:30)
[2016-11-24] MEDS ORDERED: EPOE10002 IJ (20:41)
[2016-11-24] MEDS ORDERED: CEFEPIME 2GM/50 ML (PMX) 50 ML IVPB ONE (21:00)
[2016-11-24] MEDS ORDERED: ONDANSETRON 4 MG INJ IV PRN ×2 (21:00→22:00)
[2016-11-24] MEDS ORDERED: ACETAMINOPHEN 325 MG TAB PO PRN (21:00)
[2016-11-24] MEDS: morphine 2 MG INJ IV PRN (21:57)
[2016-11-24] MEDS ORDERED: NACL 0.9% 3 ML SYG IV SCH (22:00)
--- NOTE | 2016-11-24 23:29 | ERD ---
ER Documentation Chief Complaint Chief Complaint BIBA for BUN 134 [employer] Out Work[employer] 1.98 HPI This 41-year-old male sent into the emergency room by his facility when his laboratories returned with extremely high BUN and elevated creatinine. Patient himself states that his only symptom is that he has pain on his decubitus ulcers and would like IV pain medications stating that he usually gets Dilaudid when he is ever in the emergency room. States that he takes [facility] in his senior care. He denies any respiratory symptoms although he is a chronic trach vent patient denies shortness of breath and chest pain. Also has no abdominal or flank pain. He has not had any fevers or chills. ROS All systems reviewed and are negative except as per history of present illness. Medications Home Meds Reported Medications Epoetin Prince (Procrit) 10,000 Unit/1 Ml Vial, 16941 UNIT IJ QMON, VIAL 11/24/16 Gabapentin* (Gabapentin*) 100 Mg Capsule, 100 MG GTB TID, #90 CAP 11/24/16 Acetaminophen* (Tylenol*) 500 Mg Tab, 1000 MG PO Q4H Y for PAIN 4-6/10, TAB 11/24/16 Fe Fumarate/Nenita/FA/Bcomp,C (Nephron FA Tablet) 1 Each Tablet, 1 EACH GTB DAILY , TAB 10/20/16 Cran/Vitc/Mannose/Inulin/Brom (Uti-Stat Liquid) 3,875 Mg/30 Ml Liquid, 3875 MG GTB BID 10/01/16 Zinc Sulfate* (Zinc Sulfate*) 220 Mg Tablet, 220 MG GTB DAILY, TAB 10/01/16 Risperidone* (Risperdal* Liq) 1 Mg/Ml Solution, 1 MG GTB Q9AM, ML 10/01/16 Pantoprazole* (Protonix*) 40 Mg Tablet.dr, 40 MG GTB DAILY, TAB 10/01/16 Hydrocodone/Acetaminophen ([place] 5-325 Tablet) 1 Each Tablet, 1 EACH GTB BID Y for SEVERE PAIN LEVEL 7-10, TAB 10/01/16 Enoxaparin Sodium* (Lovenox*) 30 Mg/0.3 Ml Disp.syrin, 30 MG SQ DAILY, SYR 10/01/16 Na Phos,M-B/Na Phos,Di-Ba (ENEMA READY TO USE) 135 Ml Enema, 135 ML RC EVERY TWO DAYS Y for CONSTIPATION, ENEMA 10/01/16 Ferrous Sulfate* (Ferrous Sulfate*) 220 Mg/5 Ml Solution, 330 MG GTB DAILY, ML 10/01/16 Bisacodyl* (Bisacodyl*) 10 Mg Supp, 10 MG PA Q24H Y for CONSTIPATION, SUPP 10/01/16 Docusate Sodium* (Colace*) 100 Mg Capsule, 200 MG GTB QHS, #60 CAP 10/01/16 Citric Acid/Sodium Citrate* (Bicitra* (PEDIATRIC)) 1 Meq/Ml Soln, 10 MEQ GTB BID for 30 Days, BOTTLE 10/01/16 Albuterol Sulfate* (Albuterol Sulfate* Neb) 0.083%-3 Ml Neb, 2.5 MG NEB Q6 Y for WHEEZING AND SOB, #30 VIAL 10/01/16 Albuterol Sulfate* (Albuterol Sulfate* Neb) 0.083%-3 Ml Neb, 2.5 MG NEB Q3H Y for WHEEZING AND SOB, #30 VIAL 05/03/16 Magnesium Hydroxide* (Milk Of Magnesia*) 400 Mg/5 Ml Oral.susp, 30 ML GTB QHS Y for CONSTIPATION, ML 04/16/15 Acetaminophen* (Tylenol*) 325 Mg Tablet, 650 MG GTB Q4H Y for MILD PAIN LEVEL 1- 3, TAB AND FOR TRACH TUBE CHANGE PRN 04/16/15 Discontinued Reported Medications Multivit &Minerals/Ferrous Fum (MULTIVITAMIN LIQUID) 9 Mg/15 Ml Liquid, 5 ML GTB DAILY 11/24/16 Ascorbic Acid* (Ascorbic Acid*) 500 Mg/5 Ml Syrup, 500 MG GTB DAILY, #300 ML 10/01/16 Gabapentin* (Gabapentin* Liq) 250 Mg/5 Ml Solution, 100 MG GTB TID, ML 10/01/16 Folic Acid/Vitamin B Comp W-C (Nephrocaps Capsule) 1 Mg Capsule, 1 MG GTB DAILY , CAP 10/01/16 Polyethylene Glycol* (Miralax*) 17 Gm Powd.pack, 17 GM GTB DAILY, #30 PACKET 10/01/16 Allergies Allergies: Coded Allergies: Tetracyclines (Verified Allergy, Unknown, 11/24/16) PMhx/Soc History of Surgery: Yes (Cervical spine surgery) Anesthesia Reaction: No Hx Neurological Disorder: Yes (bipolar disorder) Hx Respiratory Disorders: Yes (acute respiratory failure) Hx Cardiac Disorders: Yes Hx Psychiatric Problems: Yes (bipolar disorder, anxiety, depression) Hx Miscellaneous Medical Probl: Yes (GERD, RECURRENT UTI, DEPRESSION, BIPOLAR DISORDER) Hx Alcohol Use: No Hx Substance Use: No Hx Tobacco Use: No Smoking Status: Never smoker Physical Exam Vitals Vital Signs Date Time Temp Pulse Resp B/P Pulse Ox O2 Delivery O2 Flow Rate FiO2 11/24/16 23:03 84 24 101/70 98 Trach Collar 11/24/16 21:33 86 16 100/60 100 Room Air 11/24/16 19:41 94 26 99 40 11/24/16 18:40 99.1 93 20 126/81 99 Physical Exam Const: [] No distress Head: Atraumatic Eyes: Normal Conjunctiva ENT: Normal External Ears, Nose and Mouth. Neck: Full range of motion..~ No meningismus. Resp: Clear to auscultation bilaterally, some transmitted upper airway breath sounds Cardio: Regular rate and rhythm, no murmurs Abd: Soft, non tender, non distended. Normal bowel sounds Skin: No petechiae or rashes Back: No midline or flank tenderness Ext: No cyanosis, or edema, stage II decubitus ulcers in sacral buttock area. Neur: Awake and alert and oriented 3, no focal deficits Psych: Normal Mood and Affect Result Diagram: 11/24/16192411/24/161924 Results 24 hrs Laboratory Tests Test 11/24/16 19:25 White Blood Count 5.110^3/ul Red Blood Count 3.4010^6/ul Hemoglobin 10.5g/dl Hematocrit 33.6% Mean Corpuscular Volume 98.8fl Mean Corpuscular Hemoglobin 30.9pg Mean Corpuscular Hemoglobin Concent 31.3g/dl Red Cell Distribution Width 16.3% Platelet Count 44017^3/UL Mean Platelet Volume 10.6fl Neutrophils % 81.1% Lymphocytes % 9.6% Monocytes % 6.7% Eosinophils % 2.0% Basophils % 0.2% Nucleated Red Blood Cells % 0.0/100WBC Neutrophils # 4.110^3/ul Lymphocytes # 0.510^3/ul Monocytes # 0.310^3/ul Eosinophils # 0.110^3/ul Basophils # 0.010^3/ul Nucleated Red Blood Cells # 0.010^3/ul Urine Color YELLOW Urine Clarity CLOUDY Urine pH 7.0 Urine Specific [place] 1.010 Urine Ketones NEGATIVEmg/dL Urine Nitrite NEGATIVEmg/dL Urine Bilirubin NEGATIVEmg/dL Urine Urobilinogen NEGATIVEmg/dL Urine Leukocyte Esterase 3+José/ul Urine Microscopic RBC 55/HPF Urine Microscopic WBC > 182/HPF Urine Bacteria FEW/HPF Urine Hemoglobin 2+mg/dL Urine Glucose NEGATIVEmg/dL Urine Total Protein 1+mg/dl Sodium Level 143mmol/L Potassium Level 4.9mmol/L Chloride Level 114mmol/L Carbon Dioxide Level 17mmol/L Anion Gap 17 Blood Urea Nitrogen 107mg/dl Creatinine 1.99mg/dl Glucose Level 97mg/dl Calcium Level 8.9mg/dl Phosphorus Level 5.7mg/dl Magnesium Level 2.2mg/dl Current Medications Medications (Trade) Dose Ordered Sig/Dwain Route PRN Reason Start Time Stop Time Status Last Admin Dose Admin Oxycodone/ Acetaminophen 1 tab 1 tab ONCE ONCE PO 11/24/16 19:30 11/24/16 19:31 DC 11/24/16 19:21 Sodium Chloride (NS) 1,000 ml @ 1,000 mls/hr Q1H STAT IV 11/24/16 19:03 11/24/16 20:02 DC 11/24/16 19:22 Ondansetron HCl (Zofran Inj) 4 mg ONCE STAT IV 11/24/16 19:03 11/24/16 19:06 DC 11/24/16 19:22 Haloperidol 3 mg 3 mg ONCE ONCE IV 11/24/16 20:30 11/24/16 20:31 DC 11/24/16 20:09 Cefepime HCl (Maxipime 2gm/50 ml (Pmx)) 50 ml @ 100 mls/hr ONCE ONCE IVPB 11/24/16 21:00 11/24/16 21:29 DC 11/24/16 21:00 Ondansetron HCl (Zofran Inj) 4 mg ER BRIDGE PRN IV NAUSEA AND/OR VOMITING 11/24/16 21:00 11/25/16 20:59 Acetaminophen 650 mg 650 mg ER BRIDGE PRN PO MILD PAIN/FEVER 11/24/16 21:00 11/25/16 20:59 Sodium Chloride (NS) 1,000 ml @ 100 mls/hr Q10H IV 10/19/17 21:41 IV Flush (NS 3 ml) 3 ml PER PROTOCOL IV 11/24/16 22:00 Ondansetron HCl (Zofran Inj) 4 mg Q6H PRN IV NAUSEA AND/OR VOMITING 11/24/16 22:00 Acetaminophen (Tylenol Tab) 650 mg Q6H PRN PO PAIN LEVEL 1-3 OR FEVER 11/24/16 22:00 Morphine Sulfate (morphine) 2 mg Q4H PRN IV PAIN LEVEL 7-10 11/24/16 22:00 11/24/16 21:57 Famotidine (Pepcid Iv) 20 mg Q12 IV 11/25/16 09:00 Enoxaparin Sodium 30 mg 30 mg DAILY SC 11/25/16 09:00 Cefepime HCl (Maxipime 1gm/50 ml (Pmx)) 50 ml @ 100 mls/hr DAILY IVPB 11/25/16 09:00 Procedures/MDM Acute kidney injury with uremia and very high BUN well as urinary tract infection. Patient will need to be admitted for a renal consult. He is seen Dr. Barker in the past and has had procedures done by urologist, . Is given a liter of normal saline, cefepime IV, and urine cultures obtained the emergency room for his skin pain he was given Percocet. There is upset that he usually gets Dilaudid in the emergency room. Clarified with him and he stated that [facility] for his pain is in the facility but they usually give him Dilaudid when he is in the emergency room. It told him that this was not indicated in this case. According to the nurses he did ask him a return into the room if he could have IV pain medication. Likely that this unfortunate patient has become acclimated to very strong IV pain medication and he exhibits drug-seeking behavior. He was in no distress. Very comfortable. Ventilator settings were kept the same the patient remained with stable vital signs. He is going to be admitted to Dr. Barreto on telemetry. Departure Diagnosis: Primary Impression: Acute kidney injury Additional Impressions: Complicated UTI (urinary tract infection) Uremia Drug-seeking behavior Normocytic anemia Hyperchloremia Condition: Serious CARLA VELÁZQUEZ DO Nov 24, 2016 23:29
[2016-11-25] VITALS (23 sets, daily range): BP systolic 93–120; BP diastolic 55–80; PULSE 85–103; RESP 16–33; Ht 182.9 cm; Wt 66.7 kg
[2016-11-25] MEDS: morphine 2 MG INJ IV PRN ×4 (03:15→21:30)
[2016-11-25] MEDS: SOD CHLORIDE 0.9% 1,000 ML IV SCH ×3 (03:29→13:46)
[2016-11-25] MEDS ORDERED: PENDING SANTYL ORDER FOR WOUND CARE XX PRN (06:00)
[2016-11-25] MEDS: BACLOFEN 10 MG TAB GTB SCH ×3 (08:25→20:26)
[2016-11-25] MEDS: FAMOTIDINE 20 MG INJ IV SCH ×2 (08:25→20:27)
[2016-11-25] MEDS: CEFEPIME 1GM/50 ML (PMX) 50 ML IVPB SCH (08:26)
[2016-11-25] MEDS: ENOXAPARIN 30 MG/0.3 ML SYG SC SCH (09:09)
[2016-11-25] MEDS: DANTROLENE 25 MG CAP GTB SCH ×3 (10:00→20:27)
--- NOTE | 2016-11-25 12:20 | HP ---
Date/Time of Note Date/Time of Note DATE: 11/25/16 TIME: 12:18 Assessment/Plan VTE Prophylaxis VTE Prophylaxis Intervention: LMWH Lines/Catheters IV Catheter Type (from [facility]): Peripheral IV Urinary Cath still in place: Yes (pt came with starkey) Reason Cath still needed: urinary retention Assessment/Plan Assessment/Plan - Acute kidney injury, Dr. Barker will be following patient in nephrology consultation - Uremia - Possible urinary tract infection. Dr. Maciel is asked to see patient in infection disease consultation. - Neurogenic bladder with suprapubic catheter. - Left renal nephrolithiasis, S/p lithotripsy and removal of a left ureteral JJ stent by Dr. Marquez 10/29. - Acute kidney injury on chronic kidney disease. - Status post right nephrectomy - Ventilator-dependent respiratory failure with tracheostomy. - Dysphagia with percutaneous endoscopic gastrostomy tube. - Multiple decubitus ulcers present on admission. - Cervical spine injury with paraplegia. - Bipolar disorder with psychosis. HPI/ROS Admit Date/Time Admit Date/Time Nov 24, 2016 at 21:00 Hx of Present Illness The patient is 41-year-old male with paraplegia due to cervical spine injury, ventilator dependent respiratory failure, dysphagia with G-tube, bipolar disorder with psychosis, and multiple decubitus ulcers. Patient has neurogenic bladder with suprapubic catheter, patient also had on the left kidney with multiple renal stones status post lithotripsy and removal of a left ureteral JJ stent at last admission by Dr. Marquez, patient is status post right nephrectomy. Patient is completed treatment for a urinary tract infection and was discharged to residential facility. However patient noted to have elevated BUN and creatinine on routine labs and was sent to emergency room from senior living. Evaluation in the emergency room BUN was 107 creatinine is about 2. Patient also noted to have leukocyte esterase and on urinalysis. Patient was started on broad-spectrum antibiotics and admitted for further evaluation and management. Patient complains of a lower quadrant pain however denies any fever chills denies nausea vomiting denies shortness of breath denies chest pain. ROS 12 point review of system is negative unless mentioned in HPI PMH/Family/Social Past Medical History per HPI Past Surgical History Status post tracheostomy, status post G-tube placement, status post right nephrectomy, status post suprapubic catheter placement, status post lithotripsy Past Surgical Hx: other Social History Smoking Status: Never smoker Exam/Review of Systems Vital Signs Vitals Vital Signs Date Time Temp Pulse Resp B/P Pulse Ox O2 Delivery O2 Flow Rate FiO2 11/25/16 11:13 97.6 80 16 120/80 97 11/25/16 11:04 40 11/24/16 23:03 Trach Collar Intake and Output 11/24/16 11/24/16 11/25/16 15:00 23:00 07:00 Output Total 2500 ml Balance -2500 ml Exam Constitutional: alert, oriented Head: normocephalic Eyes: nl conjunctiva Neck: other (trach), supple Respiratory: normal air movement Cardiovascular: nl pulses, regular rate and rhythm Gastrointestinal: non-tender, other (GT), soft Extremities: normal pulses Neurological: nl mental status Skin: other (wounds) Labs Result Diagram: 11/25/1654011/25/16540 Medications Medications Current Medications Sodium Chloride (NS) 1,000 ml @ 100 mls/hr Q10H IV Last administered on 03:29; Admin Dose 100 MLS/HR; Start 11/24/16 at 21:41 Ondansetron HCl (Zofran Inj) 4 mg Q6H PRN IV NAUSEA AND/OR VOMITING; Start at 22:00 Acetaminophen (Tylenol Tab) 650 mg Q6H PRN PO PAIN LEVEL 1-3 OR FEVER; Start 11/24/16 at 22:00 Morphine Sulfate (morphine) 2 mg Q4H PRN IV PAIN LEVEL 7-10 Last administered on 11/25/16 11:13; Admin Dose 2 MG; Start 11/24/16 at 22:00 Famotidine (Pepcid Iv) 20 mg Q12 IV Last administered on 11/25/16 08:25; Admin Dose 20 MG; Start 11/25/16 at 09:00 Enoxaparin Sodium 30 mg 30 mg DAILY SC Last administered on 11/25/16 09:09; Admin Dose 30 MG; Start 11/25/16 at 09:00 Cefepime HCl (Maxipime 1gm/50 ml (Pmx)) 50 ml @ 100 mls/hr DAILY IVPB Last administered on 11/25/16 08:26; Admin Dose 100 MLS/HR; Start 11/25/16 at 09: 00 Miscellaneous Information (Pending [facility] Order For Wound Care) This patient noriega... PRN PRN XX WOUND CARE; Start 11/25/16 at 06:00 Baclofen (Lioresal) 5 mg TID GTB Last administered on 11/25/16t 08:25; Admin Dose 5 MG; Start 11/25/16 at 09:00 Zolpidem Tartrate (Ambien) 5 mg HS PRN GTB INSOMNIA; Start 11/25/16 at 21:00 Dantrolene Sodium (Dantrium) 100 mg TID GTB ; Start 11/25/16 at 10:00 AISSATOU DUNCAN Nov 25, 2016 12:20
[2016-11-25] MEDS: IPRATROPIUM (HFA) 12.9 GM INHALER INH SCH ×2 (13:37→19:47)
[2016-11-25] MEDS: ALBUTEROL 18 GM INHALER INH SCH ×2 (13:37→19:47)
--- NOTE | 2016-11-25 17:49 | CONS ---
DATE OF ADMISSION: 11/24/2016 DATE OF CONSULTATION: 11/25/2016 TYPE OF CONSULTATION: Infectious Disease. REASON FOR CONSULTATION: Antibiotic management. HISTORY OF PRESENT ILLNESS: Henry Haddad is a 41-year-old male with history of paraplegia due to cervical spine injury, who comes in for evaluation of elevated BUN and creatinine is being seen for antibiotic management. His past problems include: 1. Paraplegia due to cervical spine injury. 2. Ventilator-dependent respiratory failure. 3. Dysphagia with G-tube placement. 4. Bipolar disorder. 5. Psychosis. 6. Multiple decubitus ulcers. 7. Neurogenic bladder with suprapubic catheter in place. 8. Multiple renal stones in the left kidney, status post lithotripsy. 9. Removal of left ureteral JJ stent on his last admission by Dr. Marquez. 10. Status post right nephrectomy. The patient has completed treatment for urinary tract infection and was discharged to [facility] facility; however, he was noted to have elevated BUN and creatinine and was sent to the emergency room with a BUN and creatinine of 107 and 2, and positive leukocyte esterase on his urinalysis and w as started on broad spectrum antibiotics. PAST SURGICAL HISTORY: Operations: Status post tracheostomy, status post G-tube placement, status post right nephrectomy, status post suprapubic catheter placement and status post lithotripsy. LABORATORY: On admission, his white count 4.5, hemoglobin and hematocrit of 9.4 and 31.4, platelet count 170,000. BUN and creatinine of 104/2.12, glucose random 79. PAST MEDICAL HISTORY: Operations as outlined. FAMILY HISTORY: Noncontributory. SOCIAL HISTORY: He does not smoke, drink or abuse drugs. ALLERGIES: NONE TO PENICILLIN, SULFA OR FOODS. MEDICATIONS: Per chart. REVIEW OF SYSTEMS: As per HPI, also positive for cervical spine surgery, GERD, recurrent UTIs and d epression. PHYSICAL EXAMINATION: GENERAL: He is a chronically ill-appearing male who is awake, responsive, in no acute distress. VITAL SIGNS: Stable. He is afebrile. SKIN: Without generalized rash. HEENT: Within normal limits. NECK: Ventilator-dependent respiratory failure with tracheostomy. CHEST: Decreased breath sounds at the bases. HEART: Without murmur or gallop. ABDOMEN: Soft, nontender, without organosplenomegaly or masses. G-tube is in place. He has a supr apubic catheter. EXTREMITIES: No cyanosis, clubbing, or edema. RECTAL/GENITAL: Exam is deferred. NEUROLOGIC: The patient is paraplegic secondary to cervical spine injury. He is actually quadriple gic. PLAN: We will continue him at this point on cefepime. His white count today is 4.5, BUN and creati nine 104/2.12. We will await the results of the urine culture. I will dictate my findings to Dr. Shawn king. Dictated By: ANTONELLA STEWART MD, JD/QUE Conf#: [id number] DID#: [id number]
--- NOTE | 2016-11-25 18:50 | CONS ---
Date/Time of Note Date/Time of Note DATE: 11/25/16 TIME: 18:50 Assessment/Plan Assessment/Plan Additional Assessment/Plan 1. Acute kidney injury secondary to severe prerenal azotemia and possible acute tubular necrosis. 2. Acute uremia with a BUN of 46, Cr 1.87 on admission 3. Acute hyperkalemia- resolved 4. Possible UTI casuign sepsis 5. 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 6. History of neurogenic bladder with urinary retention, status post suprapubic catheter. 7. History of previous recurrent urinary tract infections. 8. 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 9. 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 10. Other medical history includes anxiety, depression, bipolar disorder, psychosis. 11. History of right nephrectomy with left renal nephrolithiasis and a left renal cyst measuring 5.3 cm in size. Plan: S/p IVF NS hydration continue D51/2NS at current rate IV abx Cefepime ID consulted on case will continue to follow up on patient pt previosly had a full CKD work up, no need to repeat it Thanks for consultation,we will continue to follow up on patient Consultation Date/Type/Reason Admit Date/Time Nov 24, 2016 at 21:00 Date of Consultation: Nov 25, 2016 Type of Consultation: NEPHROLOGY Reason for Consultation acute kidney injury, Hyperkalemia, Hypernatremia Referring Provider: JOSÉ ANTONIO MIRZA MD Hx of Present Illness 41-year-old male with paraplegia due to cervical spine injury, ventilator dependent respiratory failure, dysphagia with G-tube, bipolar disorder with psychosis, and multiple decubitus ulcers. Patient has neurogenic bladder with suprapubic catheter, patient also had on the left kidney with multiple renal stones status post lithotripsy and removal of a left ureteral JJ stent at last admission by Dr. Marquez, patient is status post right nephrectomy. He gets readmitted and noted to have acute kidney injury, Hyperkalemia, Hypernatremia and renal has been consulted for it. Subjective hx not possible: pt non-verbal Past Surgical History Past Surgical Hx: other Social History Smoking Status: Never smoker Exam/Review of Systems Vital Signs Vitals Vital Signs Date Time Temp Pulse Resp B/P Pulse Ox O2 Delivery O2 Flow Rate FiO2 11/25/16 17:09 98 20 96 40 11/25/16 15:21 97.6 120/80 11/24/16 23:03 Trach Collar Intake and Output 11/24/16 11/24/16 11/25/16 15:00 23:00 07:00 Output Total 2500 ml Balance -2500 ml Exam Constitutional: alert, non-verbal Psych: no complaints Head: normocephalic Eyes: nl conjunctiva ENMT: nl external ears & nose, other (+ tracheostom on ventilator ) Neck: non-tender, supple Respiratory: congested cough, crackles/rales, diminished breath sounds Cardiovascular: nl pulses, regular rate and rhythm Gastrointestinal: non-tender, soft Musculoskeletal: nl extremities to inspection, nl gait and stance Neurological: FRONT OFFICE MEDICAL ASSISTANT II-XII intact Results Result Diagram: 11/25/16 0541 11/25/16 0541 Results 24 hrs Laboratory Tests Test 11/24/16 19:25 11/25/16 05:41 White Blood Count 5.1 4.5 L Red Blood Count 3.40 L 3.09 L Hemoglobin 10.5 L 9.4 L Hematocrit 33.6 L 31.4 L Mean Corpuscular Volume 98.8 101.6 H Mean Corpuscular Hemoglobin 30.9 30.4 Mean Corpuscular Hemoglobin Concent 31.3 L 29.9 L Red Cell Distribution Width 16.3 #H 16.3 H Platelet Count 168 # 170 Mean Platelet Volume 10.6 H 10.4 Neutrophils % 81.1 H 67.3 Lymphocytes % 9.6 L 17.9 Monocytes % 6.7 10.6 Eosinophils % 2.0 3.8 Basophils % 0.2 0.2 Nucleated Red Blood Cells % 0.0 0.0 Neutrophils # 4.1 3.0 Lymphocytes # 0.5 L 0.8 Monocytes # 0.3 0.5 Eosinophils # 0.1 0.2 Basophils # 0.0 0.0 Nucleated Red Blood Cells # 0.0 0.0 Urine Color YELLOW Urine Clarity CLOUDY A Urine pH 7.0 Urine Specific [place] 1.010 Urine Ketones NEGATIVE Urine Nitrite NEGATIVE Urine Bilirubin NEGATIVE Urine Urobilinogen NEGATIVE Urine Leukocyte Esterase 3+ H Urine Microscopic RBC 55 H Urine Microscopic WBC > 182 H Urine Bacteria FEW A Urine Hemoglobin 2+ H Urine Glucose NEGATIVE Urine Total Protein 1+ H Sodium Level 143 148 H Potassium Level 4.9 5.3 H Chloride Level 114 H 122 H Carbon Dioxide Level 17 L 16 L Anion Gap 17 H 15 Blood Urea Nitrogen 107 H 104 H Creatinine 1.99 H 2.12 H Glucose Level 97 79 Calcium Level 8.9 9.0 Phosphorus Level 5.7 H Magnesium Level 2.2 Total Bilirubin 0.0 L Direct Bilirubin 0.00 Indirect Bilirubin 0.0 Aspartate Amino Transf (AST/SGOT) 17 Alanine Aminotransferase (ALT/SGPT) 35 Alkaline Phosphatase 150 H Total Protein 7.1 Albumin 3.0 L Globulin 4.10 H Albumin/Globulin Ratio 0.73 Medications Medications Current Medications Sodium Chloride (NS) 1,000 ml @ 100 mls/hr Q10H IV Last administered on 13:46; Admin Dose 100 MLS/HR; Start 11/24/16 at 21:41 Ondansetron HCl (Zofran Inj) 4 mg Q6H PRN IV NAUSEA AND/OR VOMITING; Start at 22:00 Acetaminophen (Tylenol Tab) 650 mg Q6H PRN PO PAIN LEVEL 1-3 OR FEVER; Start 11/24/16 at 22:00 Morphine Sulfate (morphine) 2 mg Q4H PRN IV PAIN LEVEL 7-10 Last administered on 11/25/16 11:13; Admin Dose 2 MG; Start 11/24/16 at 22:00 Famotidine (Pepcid Iv) 20 mg Q12 IV Last administered on 11/25/16 08:25; Admin Dose 20 MG; Start 11/25/16 at 09:00 Enoxaparin Sodium 30 mg 30 mg DAILY SC Last administered on 11/25/16 09:09; Admin Dose 30 MG; Start 11/25/16 at 09:00 Cefepime HCl (Maxipime 1gm/50 ml (Pmx)) 50 ml @ 100 mls/hr DAILY IVPB Last administered on 11/25/16 08:26; Admin Dose 100 MLS/HR; Start 11/25/16 at 09: 00 Miscellaneous Information (Pending Santyl Order For Wound Care) This patient noriega... PRN PRN XX WOUND CARE; Start 11/25/16 at 06:00 Baclofen (Lioresal) 5 mg TID GTB Last administered on 11/25/16 13:30; Admin Dose 5 MG; Start 11/25/16 at 09:00 Zolpidem Tartrate (Ambien) 5 mg HS PRN GTB INSOMNIA; Start 11/25/16 at 21:00 Dantrolene Sodium (Dantrium) 100 mg TID GTB ; Start 11/25/16 at 10:00 TIARA CISNEROS MD Nov 25, 2016 18:50
[2016-11-25] MEDS: DEXTROSE 5%-0.45% NACL 1,000 ML IV SCH (20:25)
[2016-11-25] MEDS: ZOLPIDEM 5 MG TAB GTB PRN (20:26)
[2016-11-26] VITALS (23 sets, daily range): BP systolic 99–131; BP diastolic 57–91; PULSE 61–78; RESP 15–33
[2016-11-26] MEDS: IPRATROPIUM (HFA) 12.9 GM INHALER INH SCH (01:46)
[2016-11-26] MEDS: ALBUTEROL 18 GM INHALER INH SCH (01:46)
[2016-11-26] MEDS: morphine 2 MG INJ IV PRN ×4 (01:52→15:03)
[2016-11-26] MEDS: ACETAMINOPHEN 325 MG TAB PO PRN (03:46)
[2016-11-26] MEDS: SOD CHLORIDE 0.9% 1,000 ML IV SCH (07:29)
[2016-11-26] MEDS: DEXTROSE 5%-0.45% NACL 1,000 ML IV SCH ×2 (07:33→14:40)
[2016-11-26] MEDS: FAMOTIDINE 20 MG INJ IV SCH (09:54)
[2016-11-26] MEDS: BACLOFEN 10 MG TAB GTB SCH ×3 (09:54→20:49)
[2016-11-26] MEDS: DANTROLENE 25 MG CAP GTB SCH ×3 (09:54→20:50)
[2016-11-26] MEDS: CEFEPIME 1GM/50 ML (PMX) 50 ML IVPB SCH (09:55)
[2016-11-26] MEDS: ENOXAPARIN 30 MG/0.3 ML SYG SC SCH (10:11)
[2016-11-26] MEDS ORDERED: LEVALBUTEROL (NEB) 1.25 MG/0.5 ML AMP HHN PRN (10:30)
[2016-11-26] MEDS ORDERED: IPRATROPIUM (NEB) 0.5 MG/2.5 ML AMP HHN PRN (10:30)
--- NOTE | 2016-11-26 11:31 | RADRPT ---
PROCEDURE: CT abdomen and pelvis without contrast. CLINICAL INDICATION: Obstructive uropathy. TECHNIQUE: CT scan of the abdomen and pelvis without contrast was performed and is reconstructed a t 5 mm contiguous axial intervals from the dome of the diaphragm to the inferior pubic rami.. The p atient was scanned without intravenous contrast. Sagittal and coronal reformatted images were obtai rodrigo from the axial source images. The calculated radiation dose measures [address] DI measures 14 mGy. Individualized dose optimization technique was used for the performance of this exam. This included 1. Automated exposure control. 2. Adjustment of the mA and / or kV according to the patient's size. 3. Use of iterative reconstructed technique. COMPARISON: CT abdomen pelvis October 21, 2016 FINDINGS: There is persistent collapse of the right lower lobe . There has been interval partial re-expansion of the left lower lobe with residual atelectasis in the dependent portion of the left lower lobe. No alveolar infiltrate is seen. There is ill-defined nodularity at the medial base of the right middle lobe. There is a small right pleural effusion. The liver is of normal size, contour and attenuation with no mass or ductal dilatation. Gallbladder is distended and contains stones. No splenic, adrenal or pancreatic abnormalities present. The right kidney is absent. Again noted are multiple nonobstructing stone fragments in the dependent portion of the left kidney. There is been interval removal of previously noted left double-J ureter al stent. There is moderate to severe left hydronephrosis with moderate dilatation of the ureter to the level of the bladder. There is thinning of the parenchyma of the left kidney. No ureteral stone is seen. Findings may represent evidence of chronic pyelonephritis. Suprapubic catheter is seen with in the urinary bladder. No bladder stone is identified. Prostate and seminal vesicles are normal. There is no aneurysm. Retroperitoneal adenopathy is again noted. No bowel mass or obstruction is present. There is a feeding gastrostomy tube in the stomach. The appendix is not confidently seen. No phlegmon or pneumoperitoneum is visualized. There is a small v olume of ascites. Noted is a sacral decubitus ulcer extending down to the coccyx with partial destruction of the infer ior sacrum and the coccyx. IMPRESSION: Interval removal left double-J ureteral stent. Multiple nonobstructing left renal calculi without ur eteral stone. Persistent left hydroureter nephrosis with thinning of parenchymal mental. Question ch ronic pyelonephritis. Status post right nephrectomy. Cholelithiasis. Persistent right lower lobe collapse with interval partial re-expansion left lower lobe. Small right pleural effusion. Suprapubic bladder catheter. Percutaneous gastrostomy tube. Small volume ascites. Sacral decubitus ulcer with partial destruction of the inferior sacrum and coccyx. .Reji Quijano MD, MD Date Time Electronically viewed and signed by .Reji Quijano MD, on 11/26/2016 11:31 .A/
--- NOTE | 2016-11-26 13:51 | CONS ---
Date/Time of Note Date/Time of Note DATE: 11/26/16 TIME: 13:48 Consult Date/Type/Reason Admit Date/Time Nov 24, 2016 at 21:00 Initial Consult Date 11/25/16 Type of Consultation: ID Ordering Provider: JOSÉ ANTONIO MIRZA MD Objective Vital Signs Date Time Temp Pulse Resp B/P Pulse Ox O2 Delivery O2 Flow Rate FiO2 11/26/16 12:12 78 11/26/16 12:00 98.6 18 113/61 97 11/26/16 11:15 40 11/24/16 23:03 Trach Collar Intake and Output 11/25/16 11/25/16 11/26/16 15:00 23:00 07:00 Intake Total 300 ml 850 ml 1600 ml Output Total 1250 ml 2000 ml Balance 300 ml -400 ml -400 ml Results/Medications Result Diagram: 11/25/16 0541 11/25/16 0541 Medications Current Medications Ondansetron HCl (Zofran Inj) 4 mg Q6H PRN IV NAUSEA AND/OR VOMITING; Start at 22:00 Acetaminophen (Tylenol Tab) 650 mg Q6H PRN PO PAIN LEVEL 1-3 OR FEVER Last administered on 11/26/16 03:46; Admin Dose 650 MG; Start 11/24/16 at 22:00 Morphine Sulfate (morphine) 2 mg Q4H PRN IV PAIN LEVEL 7-10 Last administered on 11/26/16 09:54; Admin Dose 2 MG; Start 11/24/16 at 22:00 Famotidine (Pepcid Iv) 20 mg Q12 IV Last administered on 11/26/16 09:54; Admin Dose 20 MG; Start 11/25/16 at 09:00 Enoxaparin Sodium 30 mg 30 mg DAILY SC Last administered on 11/26/16 10:11; Admin Dose 30 MG; Start 11/25/16 at 09:00 Cefepime HCl (Maxipime 1gm/50 ml (Pmx)) 50 ml @ 100 mls/hr DAILY IVPB Last administered on 11/26/16 09:55; Admin Dose 100 MLS/HR; Start 11/25/16 at 09: 00 Miscellaneous Information (Pending Santyl Order For Wound Care) This patient noriega... PRN PRN XX WOUND CARE; Start 11/25/16 at 06:00 Baclofen (Lioresal) 5 mg TID GTB Last administered on 11/26/16 09:54; Admin Dose 5 MG; Start 11/25/16 at 09:00 Zolpidem Tartrate (Ambien) 5 mg HS PRN GTB INSOMNIA Last administered on 20:26; Admin Dose 5 MG; Start 11/25/16 at 21:00 Dantrolene Sodium 100 mg 100 mg TID GTB Last administered on 11/26/16 09:54; Admin Dose 100 MG; Start 11/25/16 at 10:00 Dextrose/Sodium Chloride (D5-1/2ns) 1,000 ml @ 100 mls/hr Q10H IV Last administered on 11/26/16 07:33; Admin Dose 100 MLS/HR; Start 11/25/16 at 19: 00 Assessment/Plan Chief Complaint/Hosp Course No acute changes overnight patient is awake looks comfortable, no fevers CT abdomen and pelvis revealed removal of left double-J ureteral stent. Multiple nonobstructive left renal calculi without ureteral stone. Persistent left hydroureteronephrosis questionable chronic pyelonephritis. Small volume ascites. Sacral decubitus ulcer with partial destruction of the inferior sacrum and coccyx Indwelling's: Trach PEG suprapubic catheter Antimicrobials: Cefepime PHYSICAL EXAMINATION: GENERAL: Chronically ill-appearing, middle-aged, quadriplegic man, who is in no distress. HEENT: Head atraumatic, normocephalic. Sclerae anicteric. Buccal mucosa dry. NECK: Supple. Tracheostomy present. CHEST: Chest rise symmetrical. Breath sounds diminished to bases. HEART: S1, S2. ABDOMEN: Soft, bowel sounds present. EXTREMITIES: Without cyanosis, wasted, + contractures ASSESSMENT: 1. Recurrent UTI 2. Acute renal failure. 3. Quadriplegia 4. Neurogenic bladder 5. History of scabies 4. History of right nephrectomy. 5. Multiple chronic wounds PLAN: Clinically stable, continue antibiotics, follow final cultures, nephrology urology recommendations Discussed with RN Problems: REGINALDO CHERY NP Nov 26, 2016 13:51
--- NOTE | 2016-11-26 17:54 | CONS ---
Date/Time of Note Date/Time of Note DATE: 11/26/16 TIME: 17:54 Assessment/Plan Assessment/Plan Additional Assessment/Plan 1. Acute kidney injury secondary to severe prerenal azotemia and possible acute tubular necrosis. 2. Acute uremia with a BUN of 46, Cr 1.87 on admission 3. Acute hyperkalemia due to BELN[place] 4. Possible UTI casuign sepsis 5. 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 6. History of neurogenic bladder with urinary retention, status post suprapubic catheter. 7. History of previous recurrent urinary tract infections. 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 10. Other medical history includes anxiety, depression, bipolar disorder, psychosis. 11. History of right nephrectomy with left renal nephrolithiasis and a left renal cyst measuring 5.3 cm in size. Plan: S/p IVF NS hydration continue D51/2NS at current rate- if continu to have elevated Cr and Elevated Na - then we will switch pt to D5W with sodium bicarboante drip IV abx Cefepime ID consulted on case will continue to follow up on patient pt previosly had a full CKD work up, no need to repeat it Consultation Date/Type/Reason Admit Date/Time Nov 24, 2016 at 21:00 Initial Consult Date 11/25/16 Type of Consultation: NEPHROLOGY Referring Provider: JOSÉ ANTONIO MIRZA MD 24 HR Interval Summary Free Text/Dictation No acute events overnight, BP stable, K high today AM, Na and Cl also high Exam/Review of Systems Vital Signs Vitals Vital Signs Date Time Temp Pulse Resp B/P Pulse Ox O2 Delivery O2 Flow Rate FiO2 11/26/16 17:20 79 25 96 40 11/26/16 14:53 98.4 111/70 11/24/16 23:03 Trach Collar Intake and Output 11/25/16 11/25/16 11/26/16 15:00 23:00 07:00 Intake Total 300 ml 850 ml 1600 ml Output Total 1250 ml 2000 ml Balance 300 ml -400 ml -400 ml Exam Constitutional: alert, non-verbal ENMT: nl external ears & nose, other (+ tracheostom on ventilator ) Neck: non-tender, supple Respiratory: congested cough, crackles/rales, diminished breath sounds Cardiovascular: nl pulses, regular rate and rhythm Gastrointestinal: non-tender, soft, Results Result Diagram: 11/25/16 0541 11/25/16 0541 Results 24 hrs Laboratory Tests Test 11/26/16 10:14 Blood Gas Specimen Source Blood arterial Arterial Blood Date Drawn 11/26/2016 2:20:33 PM Arterial Blood pH (Temp corrected) 7.179 *L Arterial Blood pCO2 (Temp correct) 41.0 Arterial Blood pO2 (Temp corrected) 83.2 Arterial Blood HCO3 14.9 L Arterial Blood Base Excess -12.7 L Arterial Blood Oxygen Saturation 95.9 Julito Test ACCEPTAB Arterial Blood Gas Puncture Site Right Radial Arterial Blood Carboxyhemoglobin 0.3 Arterial Blood Methemoglobin 0.3 Blood Gas A-a O2 Differential 154.9 H Oxyhemoglobin Percent 95.3 Total Hemoglobin 10.4 L Blood Gas Temperature 37.0 Blood Gas Respiration Rate 14.0 Blood Gas Actual Respiration Rate 34 Blood Gas Modality VENT - AC FiO2 40.0 Blood Gas Tidal Volume 500.0 Blood Gas Low PEEP Setting 5.0 Blood Gas Critical Value Read Back MELLY Blood Gas Notified Whom Geronimo Blood Gas Notified Time 11/26/2016 2:30:36 PM Medications Medications Current Medications Ondansetron HCl (Zofran Inj) 4 mg Q6H PRN IV NAUSEA AND/OR VOMITING; Start at 22:00 Acetaminophen (Tylenol Tab) 650 mg Q6H PRN PO PAIN LEVEL 1-3 OR FEVER Last administered on 11/26/16 03:46; Admin Dose 650 MG; Start 11/24/16 at 22:00 Morphine Sulfate (morphine) 2 mg Q4H PRN IV PAIN LEVEL 7-10 Last administered on 11/26/16 15:03; Admin Dose 2 MG; Start 11/24/16 at 22:00 Enoxaparin Sodium 30 mg 30 mg DAILY SC Last administered on 11/26/16 10:11; Admin Dose 30 MG; Start 11/25/16 at 09:00 Cefepime HCl (Maxipime 1gm/50 ml (Pmx)) 50 ml @ 100 mls/hr DAILY IVPB Last administered on 11/26/16 09:55; Admin Dose 100 MLS/HR; Start 11/25/16 at 09: 00 Miscellaneous Information (Pending Santyl Order For Wound Care) This patient noriega... PRN PRN XX WOUND CARE; Start 11/25/16 at 06:00 Baclofen (Lioresal) 5 mg TID GTB Last administered on 11/26/16 15:03; Admin Dose 5 MG; Start 11/25/16 at 09:00 Zolpidem Tartrate (Ambien) 5 mg HS PRN GTB INSOMNIA Last administered on 20:26; Admin Dose 5 MG; Start 11/25/16 at 21:00 Dantrolene Sodium 100 mg 100 mg TID GTB Last administered on 11/26/16 15:03; Admin Dose 100 MG; Start 11/25/16 at 10:00 Dextrose/Sodium Chloride (D5-1/2ns) 1,000 ml @ 100 mls/hr Q10H IV Last administered on 11/26/16 07:33; Admin Dose 100 MLS/HR; Start 11/25/16 at 19: 00 Famotidine (Pepcid) 20 mg Q12 PO ; Start 11/26/16 at 21:00 TIARA CISNEROS MD Nov 26, 2016 17:54
[2016-11-26] MEDS: FAMOTIDINE 20 MG TAB PO SCH (20:49)
[2016-11-26] MEDS: CITRIC ACID/NA CITRATE 30 ML CUP GTB SCH (20:50)
[2016-11-26] MEDS ORDERED: CITRIC ACID/NA CITRATE 30 ML CUP PO SCH (21:00)
[2016-11-27] VITALS (25 sets, daily range): BP systolic 95–152; BP diastolic 54–90; PULSE 66–80; RESP 13–25
--- NOTE | 2016-11-27 01:49 | CONS ---
DATE OF ADMISSION: 11/24/2016 DATE OF CONSULTATION: 11/26/2016 TYPE OF CONSULTATION: Pulmonary. REQUESTING PHYSIIAN: Dr. Barreto. HISTORY OF PRESENT ILLNESS: Thank Estevan for referring this patient for pulmonary consultation. As you know, this is a 41-year-old male patient who was transferred from a senior living to the [facility] and admitted here as an inpatient with worsening uremia. The patient was found to have a BUN of 107, creatinine of 2. The patient was recently treated here for renal failure and underwent lithot ripsy in the left kidney. He has had a right nephrectomy in the past. The patient's course was als o complicated with a urinary tract infection with VRE, for which he received antibiotic therapy. The patient is a long-term resident of a senior living for the past several years following spinal co rd injury resulting in paraplegia. He has had respiratory failure and is ventilator dependent. He has a tracheostomy for airway access and a gastrostomy tube has placed for feeding, but he is able t o eat . The patient also has a history of chronic kidney disease and chronic anemia. He also has a history of psychiatric illness. In addition, he neurogenic bladder, also. PAST MEDICAL HISTORY: As mentioned earlier, chronic respiratory failure, being ventilator dependent , status post tracheostomy, status post gastrostomy, paraplegia following spinal cord injury, chroni c kidney disease, chronic anemia, nephrolithiasis in the left kidney, status post lithotripsy, urina ry tract infection with VRE in the recent past. REVIEW OF SYSTEMS: Cannot be done as the patient cannot verbalize. His cooperation, but examinatio n is also suboptimal. PERSONAL HABITS: He is a nonsmoker. No history of alcohol drinking. PHYSICAL EXAMINATION: GENERAL: Shows a young male patient who is awake, responsive, but difficult to get full cooperation . He is breathing comfortably with the long-term ventilator support through tracheostomy. VITAL SIGNS: Show temperature 98.4, blood pressure 99/57, pulse rate of 71, respirations 18, pulse oximetry 99% saturation. HEENT: Head looks normal. No scleral icterus is seen. Throat could not be seen as he would not co operate and open his mouth fully. NECK: No cervical lymphadenopathy felt. No jugular venous distension seen. Tracheostomy shows min imal secretions. No bleeding is present. No obstruction during suctioning. HEART: Regular rhythm. CHEST: Breath sounds are heard bilaterally and somewhat diminished in the lower lung tierney, otherw ise clear. ABDOMEN: Soft, not distended with normal bowel sounds, no localized tenderness is present. EXTREMITIES: Show paraplegia, no edema. LABORATORY DATA: The lab tests today show sodium 148, potassium 5.3, bicarbonate of 16, creatinine 2.12, BUN 104. BUN has slightly decreased since admission and the creatinine has slightly increased . Glucose is 79, calcium is 9. The CBC shows WBC of 4500, hemoglobin 9.4, hematocrit 31.4, platele ts 170,000. IMPRESSION 1. Acute renal failure on top of chronic kidney disease. 2. Chronic ventilator dependent respiratory failure. 3. Rule out urinary tract infection. 4. Chronic anemia. 5. History of neurogenic bladder. 6. Nephrolithiasis status post lithotripsy, left kidney. 7. Status post tracheostomy. 8. Status post gastrostomy. 9. Spinal cord injury resulting in paraplegia. 10. History of psychiatric illness. RECOMMENDATIONS: 1. Continue long-term ventilator support. 2. Continue bronchodilator inhalation therapy to maintain pulmonary hygiene and clear the secretion s. 3. Will obtain arterial blood gases. 4. Continue antibiotics. As of now he is on cefepime. 5. Continue DVT prophylaxis. Thank you, Dr. Barreto, for offering this patient in pulmonary consultation. Dictated By: HUMBERTO PEREZ MD SR/QUE Conf#: [id number] DID#: [id number]
--- NOTE | 2016-11-27 02:37 | CONS ---
DATE OF ADMISSION: 11/24/2016 DATE OF CONSULTATION: 11/26/2016 REQUESTING PHYSICIAN: Hitesh Barreto MD. HISTORY OF PRESENT ILLNESS: This is a 41-year-old male who is known to me from before. 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 The patient is on a respirator and has a G-tube. He does have a history of neurogenic bladder with a suprapubic tube. He also has had right nephre ctomy because of infection in the past, and he only has a solitary left kidney that has multiple sto lorenzo in it and he did have a JJ stent that was there for over 1 year and I removed it during his last admission and there was no obstruction in the ureter to insert a new JJ stent. The patient was lara ated for his infection, sent to the [facility]; however, patient was admitted to the [facility] because of elevated BUN about 107 and creatinine of about 2. He also does have a possible urinary tract infection, which is not unusual for him to have that, especially with a suprapubic tube in pl [place]. The patient also does have a history of bipolar disorder, multiple decubitus ulcers, dysphagia , history of ventilator dependence with tracheostomy. SOCIAL HISTORY: The patient is not a smoker. ALLERGIES: HE IS ALLERGIC TO TETRACYCLINE. CURRENT MEDICATIONS: Include: 1. Xopenex. 2. Ipratropium bromide. 3. Ambien. 4. Dantrolene sodium. 5. Pepcid. 6. Lovenox. 7. Cefepime. 8. Baclofen. 9. Zofran. 10. Tylenol. 11. Morphine. PHYSICAL EXAMINATION: GENERAL: Reveals a 41-year-old male who is on a respirator. He has a G-tube in place. VITAL SIGNS: His temperature is 98.4, pulse 71, respiration 18, blood pressure 99/57. ABDOMEN: Shows the patient does have the suprapubic tube and the G-tube in place. The suprapubic t ube is draining clear urine and with sediment sometimes. Because of the prior with him I did order a CT scan of the abdomen and pelvis today and this was reported as interval removal of left double-J ureteral stent, multiple nonobstructing left renal calculi without ureteral stone, persistent left hydroureter nephrosis with thinning of the parenchyma, chronic pyelonephritis, status post right nep hrectomy, cholelithiasis, persistent right lower lobe collapse with interval partial reexpansion of the left lower lobe, small right pleural effusion, suprapubic bladder catheter, percutaneous gastros jin tube, small volume ascites, sacral decubitus ulcer with partial destruction of the inferior sac rum and coccyx. LABORATORY DATA: His CBC shows a white count of 4.5, hemoglobin 9.4, hematocrit 31.4. BUN is 104, creatinine 2.12. Urine culture is gram-negative rods. Sensitivity is pending. IMPRESSION: The patient does have left renal stones, but these are not obstructing and the left ure ter is dilated chronically because the patient does have a suprapubic tube and neurogenic bladder. Since there is no obstruction at present; therefore, there is no need for a JJ stent. Basically, we will treat his infection and his creatinine being 2 is not uncommon with him having one kidney karissa jefry and one kidney that is not in the best condition. I will keep the suprapubic tube in place and treat his infection. Dictated By: BHARGAV SANDOVAL/QUE Conf#: [id number] DID#: [id number]
--- NOTE | 2016-11-27 02:37 | CONS ---
DATE OF ADMISSION: 11/24/2016 DATE OF CONSULTATION: 11/26/2016 REQUESTING PHYSICIAN: Hitesh Barreto MD. HISTORY OF PRESENT ILLNESS: This is a 41-year-old male who is known to me from before. 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 The patient is on a respirator and has a G-tube. He does have a history of neurogenic bladder with a suprapubic tube. He also has had right nephre ctomy because of infection in the past, and he only has a solitary left kidney that has multiple sto lorenzo in it and he did have a JJ stent that was there for over 1 year and I removed it during his last admission and there was no obstruction in the ureter to insert a new JJ stent. The patient was lara ated for his infection, sent to the [facility]; however, patient was admitted to the [facility] because of elevated BUN about 107 and creatinine of about 2. He also does have a possible urinary tract infection, which is not unusual for him to have that, especially with a suprapubic tube in pl [place]. The patient also does have a history of bipolar disorder, multiple decubitus ulcers, dysphagia , history of ventilator dependence with tracheostomy. SOCIAL HISTORY: The patient is not a smoker. ALLERGIES: HE IS ALLERGIC TO TETRACYCLINE. CURRENT MEDICATIONS: Include: 1. Xopenex. 2. Ipratropium bromide. 3. Ambien. 4. Dantrolene sodium. 5. Pepcid. 6. Lovenox. 7. Cefepime. 8. Baclofen. 9. Zofran. 10. Tylenol. 11. Morphine. PHYSICAL EXAMINATION: GENERAL: Reveals a 41-year-old male who is on a respirator. He has a G-tube in place. VITAL SIGNS: His temperature is 98.4, pulse 71, respiration 18, blood pressure 99/57. ABDOMEN: Shows the patient does have the suprapubic tube and the G-tube in place. The suprapubic t ube is draining clear urine and with sediment sometimes. Because of the prior with him I did order a CT scan of the abdomen and pelvis today and this was reported as interval removal of left double-J ureteral stent, multiple nonobstructing left renal calculi without ureteral stone, persistent left hydroureter nephrosis with thinning of the parenchyma, chronic pyelonephritis, status post right nep hrectomy, cholelithiasis, persistent right lower lobe collapse with interval partial reexpansion of the left lower lobe, small right pleural effusion, suprapubic bladder catheter, percutaneous gastros jin tube, small volume ascites, sacral decubitus ulcer with partial destruction of the inferior sac rum and coccyx. LABORATORY DATA: His CBC shows a white count of 4.5, hemoglobin 9.4, hematocrit 31.4. BUN is 104, creatinine 2.12. Urine culture is gram-negative rods. Sensitivity is pending. IMPRESSION: The patient does have left renal stones, but these are not obstructing and the left ure ter is dilated chronically because the patient does have a suprapubic tube and neurogenic bladder. Since there is no obstruction at present; therefore, there is no need for a JJ stent. Basically, we will treat his infection and his creatinine being 2 is not uncommon with him having one kidney karissa jefry and one kidney that is not in the best condition. I will keep the suprapubic tube in place and treat his infection. Dictated By: BHARGAV SANDOVAL/QUE Conf#: [id number] DID#: [id number]
[2016-11-27] MEDS: DEXTROSE 5%-0.45% NACL 1,000 ML IV SCH ×2 (04:35→11:00)
[2016-11-27] MEDS: CITRIC ACID/NA CITRATE 30 ML CUP GTB SCH ×2 (09:14→23:56)
[2016-11-27] MEDS: DANTROLENE 25 MG CAP GTB SCH ×3 (09:14→23:56)
[2016-11-27] MEDS: CEFEPIME 1GM/50 ML (PMX) 50 ML IVPB SCH (09:15)
[2016-11-27] MEDS: FAMOTIDINE 20 MG TAB PO SCH ×2 (09:15→23:56)
[2016-11-27] MEDS: BACLOFEN 10 MG TAB GTB SCH ×3 (09:15→23:56)
[2016-11-27] MEDS: ENOXAPARIN 30 MG/0.3 ML SYG SC SCH (09:22)
--- NOTE | 2016-11-27 11:55 | CONS ---
Date/Time of Note Date/Time of Note DATE: 11/27/16 TIME: 11:52 Assessment/Plan Assessment/Plan Additional Assessment/Plan 1. Acute kidney injury secondary to severe prerenal azotemia and possible acute tubular necrosis. 2. Acute uremia with a BUN of 46, Cr 1.87 on admission 3. Acute hyperkalemia due to BELINDA 4. Possible UTI casuign sepsis 5. 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 6. History of neurogenic bladder with urinary retention, status post suprapubic catheter. 7. History of previous recurrent urinary tract infections. 8. 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 9. 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 10. Other medical history includes anxiety, depression, bipolar disorder, psychosis. 11. History of right nephrectomy with left renal nephrolithiasis and a left renal cyst measuring 5.3 cm in size. Plan: S/p IVF NS hydration in ED D/c IVF D51/2NS,, pt still has borderilne hyperkalemia, low HCo3 and Hypernaremia will switch IVF to D5W with sodium bicarbonate 100meQ at 100 cc/hr , monitor electrolytes and replace as needed. IV abx Cefepime ID consulted on case pt previosly had a full CKD work up, no need to repeat it will continue to follow up on patient Consultation Date/Type/Reason Admit Date/Time Nov 24, 2016 at 21:00 Initial Consult Date 11/25/16 Type of Consultation: NEPHROLOGY Referring Provider: JOSÉ ANTONIO MIRZA MD 24 HR Interval Summary Free Text/Dictation BUN/Cr still high, Na trending down, K still high, pt non verbal Exam/Review of Systems Vital Signs Vitals Vital Signs Date Time Temp Pulse Resp B/P Pulse Ox O2 Delivery O2 Flow Rate FiO2 11/27/16 11:00 71 15 97 40 11/27/16 08:07 98.4 95/54 11/24/16 23:03 Trach Collar Intake and Output 11/26/16 11/26/16 11/27/16 15:00 23:00 07:00 Intake Total 700 ml 300 ml Output Total 1000 ml 2500 ml Balance -300 ml -2200 ml Exam Constitutional: alert, non-verbal ENMT: nl external ears & nose, other (+ tracheostom on ventilator ) Neck: non-tender, supple Respiratory: congested cough, crackles/rales, diminished breath sounds Cardiovascular: nl pulses, regular rate and rhythm Gastrointestinal: non-tender, soft, Results Result Diagram: 11/27/16 1050 11/25/16 0541 Results 24 hrs Laboratory Tests Test 11/27/16 10:50 White Blood Count 6.4 # Red Blood Count 3.28 L Hemoglobin 9.8 L Hematocrit 33.9 L Mean Corpuscular Volume 103.4 H Mean Corpuscular Hemoglobin 29.9 Mean Corpuscular Hemoglobin Concent 28.9 L Red Cell Distribution Width 16.9 H Platelet Count 159 Mean Platelet Volume 10.6 H Neutrophils % 86.8 H Lymphocytes % 5.2 L Monocytes % 4.9 Eosinophils % 2.4 Basophils % 0.2 Nucleated Red Blood Cells % 0.0 Neutrophils # 5.5 Lymphocytes # 0.3 L Monocytes # 0.3 Eosinophils # 0.2 Basophils # 0.0 Nucleated Red Blood Cells # 0.0 Medications Medications Current Medications Ondansetron HCl (Zofran Inj) 4 mg Q6H PRN IV NAUSEA AND/OR VOMITING; Start at 22:00 Acetaminophen (Tylenol Tab) 650 mg Q6H PRN PO PAIN LEVEL 1-3 OR FEVER Last administered on 11/26/16 03:46; Admin Dose 650 MG; Start 11/24/16 at 22:00 Morphine Sulfate (morphine) 2 mg Q4H PRN IV PAIN LEVEL 7-10 Last administered on 11/26/16 15:03; Admin Dose 2 MG; Start 11/24/16 at 22:00 Enoxaparin Sodium 30 mg 30 mg DAILY SC Last administered on 11/27/16 09:22; Admin Dose 30 MG; Start 11/25/16 at 09:00 Cefepime HCl (Maxipime 1gm/50 ml (Pmx)) 50 ml @ 100 mls/hr DAILY IVPB Last administered on 11/27/16 09:15; Admin Dose 100 MLS/HR; Start 11/25/16 at 09: 00 Miscellaneous Information (Pending Santyl Order For Wound Care) This patient noriega... PRN PRN XX WOUND CARE; Start 11/25/16 at 06:00 Baclofen (Lioresal) 5 mg TID GTB Last administered on 11/27/16 09:15; Admin Dose 5 MG; Start 11/25/16 at 09:00 Zolpidem Tartrate (Ambien) 5 mg HS PRN GTB INSOMNIA Last administered on 20:26; Admin Dose 5 MG; Start 11/25/16 at 21:00 Dantrolene Sodium 100 mg 100 mg TID GTB Last administered on 11/27/16 09:14; Admin Dose 100 MG; Start 11/25/16 at 10:00 Dextrose/Sodium Chloride (D5-1/2ns) 1,000 ml @ 100 mls/hr Q10H IV Last administered on 11/27/16 04:35; Admin Dose 100 MLS/HR; Start 11/25/16 at 19: 00 Famotidine (Pepcid) 20 mg Q12 PO Last administered on 11/27/16 09:15; Admin Dose 20 MG; Start 11/26/16 at 21:00 Citric Acid/ Sodium Citrate (Bicitra) 30 ml BID GTB Last administered on 09:14; Admin Dose 30 ML; Start 11/26/16 at 21:00 TIARA CISNEROS MD Nov 27, 2016 11:55
[2016-11-27] MEDS: SODIUM BICARBONATE (IV ADD) 50 MEQ in DEXTROSE 5% 1,000 ML IV SCH ×2 (13:07→23:57)
--- NOTE | 2016-11-27 14:57 | PN ---
Date/Time of Note Date/Time of Note DATE: 11/27/16 TIME: 14:50 Assessment/Plan VTE Prophylaxis VTE Prophylaxis Intervention: other (Patient had inferior vena cava umbrella) Lines/Catheters IV C[facility]ter Type (from [facility]): Peripheral IV Urinary Cath still in place: Yes (SUPRAPUBIC CATHETER) Reason Cath still needed: urinary retention Assessment/Plan Chief Complaint/Hosp Course 41-year-old male status post right nephrectomy many years back, has only left kidney with stones in it. He did have a JJ stent that has been there for over 1 year and I removed it a few weeks back. The patient does have a suprapubic catheter that is draining clear urine with purulent sediment. He has had urinary tract infection and is on antibiotic for it. CT scan done yesterday showed the stones in the kidney but no stones in the ureter to cause obstruction therefore there is no need for him to have a JJ stent at the present. Recommend hydration and treating the infection as per the culture and sensitivity Problems: Subjective 24 Hr Interval Summary Subjective hx not possible: pt non-verbal (Today, he usually able to say a few words but today as I talk to him he would not answer) Eyes: no complaints Respiratory: other (He is on a respirator) Cardiovascular: No chest pain Gastrointestinal: no complaints Genitourinary: other (Suprapubic tube in place) Neurologic: focal-weakness Exam/Review of Systems Vital Signs Vitals Vital Signs Date Time Temp Pulse Resp B/P Pulse Ox O2 Delivery O2 Flow Rate FiO2 11/27/16 13:30 74 15 98 40 11/27/16 12:10 98.2 99/54 11/24/16 23:03 Trach Collar Intake and Output 11/26/16 11/26/16 11/27/16 15:00 23:00 07:00 Intake Total 700 ml 300 ml Output Total 1000 ml 2500 ml Balance -300 ml -2200 ml Exam Constitutional: alert Eyes: nl conjunctiva ENMT: nl external ears & nose Respiratory: normal air movement, other (On the respirator) Gastrointestinal: soft Genitourinary - Male: other (Suprapubic tube draining clear urine with purulent sediment on and off) Results Result Diagram: 11/27/16 1050 11/27/16 1050 Results 24 hrs Laboratory Tests Test 11/27/16 10:50 White Blood Count 6.4 # Red Blood Count 3.28 L Hemoglobin 9.8 L Hematocrit 33.9 L Mean Corpuscular Volume 103.4 H Mean Corpuscular Hemoglobin 29.9 Mean Corpuscular Hemoglobin Concent 28.9 L Red Cell Distribution Width 16.9 H Platelet Count 159 Mean Platelet Volume 10.6 H Neutrophils % 86.8 H Lymphocytes % 5.2 L Monocytes % 4.9 Eosinophils % 2.4 Basophils % 0.2 Nucleated Red Blood Cells % 0.0 Neutrophils # 5.5 Lymphocytes # 0.3 L Monocytes # 0.3 Eosinophils # 0.2 Basophils # 0.0 Nucleated Red Blood Cells # 0.0 Sodium Level 151 H Potassium Level 5.1 Chloride Level 125 H Carbon Dioxide Level 16 L Anion Gap 15 Blood Urea Nitrogen 68 H Creatinine 1.59 H Glucose Level 94 Calcium Level 8.9 Medications Medications Current Medications Ondansetron HCl (Zofran Inj) 4 mg Q6H PRN IV NAUSEA AND/OR VOMITING; Start at 22:00 Acetaminophen (Tylenol Tab) 650 mg Q6H PRN PO PAIN LEVEL 1-3 OR FEVER Last administered on 11/26/16 03:46; Admin Dose 650 MG; Start 11/24/16 at 22:00 Morphine Sulfate (morphine) 2 mg Q4H PRN IV PAIN LEVEL 7-10 Last administered on 11/26/16 15:03; Admin Dose 2 MG; Start 11/24/16 at 22:00 Enoxaparin Sodium 30 mg 30 mg DAILY SC Last administered on 11/27/16 09:22; Admin Dose 30 MG; Start 11/25/16 at 09:00 Cefepime HCl (Maxipime 1gm/50 ml (Pmx)) 50 ml @ 100 mls/hr DAILY IVPB Last administered on 11/27/16 09:15; Admin Dose 100 MLS/HR; Start 11/25/16 at 09: 00 Miscellaneous Information (Pending Santyl Order For Wound Care) This patient noriega... PRN PRN XX WOUND CARE; Start 11/25/16 at 06:00 Baclofen (Lioresal) 5 mg TID GTB Last administered on 11/27/16 13:07; Admin Dose 5 MG; Start 11/25/16 at 09:00 Zolpidem Tartrate (Ambien) 5 mg HS PRN GTB INSOMNIA Last administered on 20:26; Admin Dose 5 MG; Start 11/25/16 at 21:00 Dantrolene Sodium (Dantrium) 100 mg TID GTB Last administered on 11/27/16 13: 07; Admin Dose 100 MG; Start 11/25/16 at 10:00 Famotidine (Pepcid) 20 mg Q12 PO Last administered on 11/27/16 09:15; Admin Dose 20 MG; Start 11/26/16 at 21:00 Citric Acid/ Sodium Citrate 30 ml 30 ml BID GTB Last administered on 09:14; Admin Dose 30 ML; Start 11/26/16 at 21:00 Sodium Bicarbonate/ Dextrose (Na Bicarb/D5W) 1,050 ml @ 100 mls/hr [id number] IV Last administered on 11/27/16 13:07; Admin Dose 100 MLS/HR; Start 11/27/16 at 13:30 BHARGAV JIANG MD Nov 27, 2016 14:57
--- NOTE | 2016-11-27 16:11 | PN ---
Date/Time of Note Date/Time of Note DATE: 11/26/16 TIME: 15:05 Assessment/Plan VTE Prophylaxis VTE Prophylaxis Intervention: other Lines/Catheters [facility] ([facility] Peripheral IV Urinary Cath still in place: No (supra pubic cath in place) Assessment/Plan Assessment/Plan - Acute kidney injury, Dr. Barker will be following patient in nephrology consultation - Uremia - Possible urinary tract infection. Dr. Maciel is asked to see patient in infection disease consultation. - Neurogenic bladder with suprapubic catheter. - Left renal nephrolithiasis, S/p lithotripsy and removal of a left ureteral JJ stent by Dr. Marquez 10/29. - Acute kidney injury on chronic kidney disease. - Status post right nephrectomy - Ventilator-dependent respiratory failure with tracheostomy. - Dysphagia with percutaneous endoscopic gastrostomy tube. - Multiple decubitus ulcers present on admission. - Cervical spine injury with paraplegia. - Bipolar disorder with psychosis. Plan of care dw Dr Barreto/staff Exam/Review of Systems Vital Signs Vitals Vital Signs Date Time Temp Pulse Resp B/P Pulse Ox O2 Delivery O2 Flow Rate FiO2 11/26/16 14:56 80 33 96 40 11/26/16 14:53 98.4 111/70 11/24/16 23:03 Trach Collar Intake and Output 11/25/16 11/25/16 11/26/16 15:00 23:00 07:00 Intake Total 300 ml 850 ml 1600 ml Output Total 1250 ml 2000 ml Balance 300 ml -400 ml -400 ml Exam Constitutional: alert Respiratory: clear to auscultation, diminished breath sounds Cardiovascular: other Musculoskeletal: muscle weakness Extremities: normal pulses Neurological: confused Results Result Diagram: 11/25/16 0541 11/25/16 0541 Results 24 hrs Laboratory Tests Test 11/26/16 10:14 Blood Gas Specimen Source Blood arterial Arterial Blood Date Drawn 11/26/2016 2:20:33 PM Arterial Blood pH (Temp corrected) 7.179 *L Arterial Blood pCO2 (Temp correct) 41.0 Arterial Blood pO2 (Temp corrected) 83.2 Arterial Blood HCO3 14.9 L Arterial Blood Base Excess -12.7 L Arterial Blood Oxygen Saturation 95.9 Julito Test ACCEPTAB Arterial Blood Gas Puncture Site Right Radial Arterial Blood Carboxyhemoglobin 0.3 Arterial Blood Methemoglobin 0.3 Blood Gas A-a O2 Differential 154.9 H Oxyhemoglobin Percent 95.3 Total Hemoglobin 10.4 L Blood Gas Temperature 37.0 Blood Gas Respiration Rate 14.0 Blood Gas Actual Respiration Rate 34 Blood Gas Modality VENT - AC FiO2 40.0 Blood Gas Tidal Volume 500.0 Blood Gas Low PEEP Setting 5.0 Blood Gas Critical Value Read Back MELLY Blood Gas Notified Whom Geronimo Blood Gas Notified Time 11/26/2016 2:30:36 PM Medications Medications Current Medications Ondansetron HCl (Zofran Inj) 4 mg Q6H PRN IV NAUSEA AND/OR VOMITING; Start at 22:00 Acetaminophen (Tylenol Tab) 650 mg Q6H PRN PO PAIN LEVEL 1-3 OR FEVER Last administered on 11/26/16 03:46; Admin Dose 650 MG; Start 11/24/16 at 22:00 Morphine Sulfate (morphine) 2 mg Q4H PRN IV PAIN LEVEL 7-10 Last administered on 11/26/16 15:03; Admin Dose 2 MG; Start 11/24/16 at 22:00 Famotidine (Pepcid Iv) 20 mg Q12 IV Last administered on 11/26/16 09:54; Admin Dose 20 MG; Start 11/25/16 at 09:00 Enoxaparin Sodium 30 mg 30 mg DAILY SC Last administered on 11/26/16 10:11; Admin Dose 30 MG; Start 11/25/16 at 09:00 Cefepime HCl (Maxipime 1gm/50 ml (Pmx)) 50 ml @ 100 mls/hr DAILY IVPB Last administered on 11/26/16 09:55; Admin Dose 100 MLS/HR; Start 11/25/16 at 09: 00 Miscellaneous Information (Pending Santyl Order For Wound Care) This patient noriega... PRN PRN XX WOUND CARE; Start 11/25/16 at 06:00 Baclofen (Lioresal) 5 mg TID GTB Last administered on 11/26/16 15:03; Admin Dose 5 MG; Start 11/25/16 at 09:00 Zolpidem Tartrate (Ambien) 5 mg HS PRN GTB INSOMNIA Last administered on 20:26; Admin Dose 5 MG; Start 11/25/16 at 21:00 Dantrolene Sodium 100 mg 100 mg TID GTB Last administered on 11/26/16 15:03; Admin Dose 100 MG; Start 11/25/16 at 10:00 Dextrose/Sodium Chloride (D5-1/2ns) 1,000 ml @ 100 mls/hr Q10H IV Last administered on 11/26/16 07:33; Admin Dose 100 MLS/HR; Start 11/25/16 at 19: 00 NAE VELAZCO Nov 26, 2016 15:15
--- NOTE | 2016-11-27 16:11 | PN ---
Date/Time of Note Date/Time of Note DATE: 11/27/16 TIME: 16:06 Assessment/Plan VTE Prophylaxis VTE Prophylaxis Intervention: SCD's Lines/Catheters IV Catheter Type (from [facility]): Peripheral IV Urinary Cath still in place: Yes (SUPRAPUBIC CATHETER) Reason Cath still needed: urinary retention Assessment/Plan Assessment/Plan - Hypernatremia- Nephro following - Metabolc Acidosis - on Bicitra - Acute kidney injury, Dr. Barker will be following patient in nephrology consultation - Uremia - Possible urinary tract infection. Dr. Maciel is asked to see patient in infection disease consultation. - Neurogenic bladder with suprapubic catheter. - Left renal nephrolithiasis, S/p lithotripsy and removal of a left ureteral JJ stent by Dr. Marquez 10/29. - Acute kidney injury on chronic kidney disease. - Status post right nephrectomy - Ventilator-dependent respiratory failure with tracheostomy. - Dysphagia with percutaneous endoscopic gastrostomy tube. - Multiple decubitus ulcers present on admission. - Cervical spine injury with paraplegia. - Bipolar disorder with psychosis. Plan of care dw Dr Barreto/staff Subjective 24 Hr Interval Summary Free Text/Dictation afebrile, tolerates GT feeding, - Hypernatremia- Nephro following, dw staff. Constitutional: requiring O2 Respiratory: no complaints Cardiovascular: no complaints Gastrointestinal: no complaints Genitourinary: no complaints Musculoskeletal: no complaints Exam/Review of Systems Vital Signs Vitals Vital Signs Date Time Temp Pulse Resp B/P Pulse Ox O2 Delivery O2 Flow Rate FiO2 11/27/16 15:00 70 16 98 40 11/27/16 12:10 98.2 99/54 11/24/16 23:03 Trach Collar Intake and Output 11/26/16 11/26/16 11/27/16 15:00 23:00 07:00 Intake Total 700 ml 300 ml Output Total 1000 ml 2500 ml Balance -300 ml -2200 ml Exam Constitutional: alert Psych: nl mood/affect Respiratory: diminished breath sounds, normal air movement Cardiovascular: nl pulses Gastrointestinal: non-tender, soft Extremities: normal pulses Neurological: confused Results Result Diagram: 11/27/16 1050 11/27/16 1050 Results 24 hrs Laboratory Tests Test 11/27/16 10:50 White Blood Count 6.4 # Red Blood Count 3.28 L Hemoglobin 9.8 L Hematocrit 33.9 L Mean Corpuscular Volume 103.4 H Mean Corpuscular Hemoglobin 29.9 Mean Corpuscular Hemoglobin Concent 28.9 L Red Cell Distribution Width 16.9 H Platelet Count 159 Mean Platelet Volume 10.6 H Neutrophils % 86.8 H Lymphocytes % 5.2 L Monocytes % 4.9 Eosinophils % 2.4 Basophils % 0.2 Nucleated Red Blood Cells % 0.0 Neutrophils # 5.5 Lymphocytes # 0.3 L Monocytes # 0.3 Eosinophils # 0.2 Basophils # 0.0 Nucleated Red Blood Cells # 0.0 Sodium Level 151 H Potassium Level 5.1 Chloride Level 125 H Carbon Dioxide Level 16 L Anion Gap 15 Blood Urea Nitrogen 68 H Creatinine 1.59 H Glucose Level 94 Calcium Level 8.9 Medications Medications Current Medications Ondansetron HCl (Zofran Inj) 4 mg Q6H PRN IV NAUSEA AND/OR VOMITING; Start at 22:00 Acetaminophen (Tylenol Tab) 650 mg Q6H PRN PO PAIN LEVEL 1-3 OR FEVER Last administered on 11/26/16 03:46; Admin Dose 650 MG; Start 11/24/16 at 22:00 Morphine Sulfate (morphine) 2 mg Q4H PRN IV PAIN LEVEL 7-10 Last administered on 11/26/16 15:03; Admin Dose 2 MG; Start 11/24/16 at 22:00 Enoxaparin Sodium 30 mg 30 mg DAILY SC Last administered on 11/27/16 09:22; Admin Dose 30 MG; Start 11/25/16 at 09:00 Cefepime HCl (Maxipime 1gm/50 ml (Pmx)) 50 ml @ 100 mls/hr DAILY IVPB Last administered on 11/27/16 09:15; Admin Dose 100 MLS/HR; Start 11/25/16 at 09: 00 Miscellaneous Information (Pending Santyl Order For Wound Care) This patient noriega... PRN PRN XX WOUND CARE; Start 11/25/16 at 06:00 Baclofen (Lioresal) 5 mg TID GTB Last administered on 11/27/16 13:07; Admin Dose 5 MG; Start 11/25/16 at 09:00 Zolpidem Tartrate (Ambien) 5 mg HS PRN GTB INSOMNIA Last administered on 20:26; Admin Dose 5 MG; Start 11/25/16 at 21:00 Dantrolene Sodium (Dantrium) 100 mg TID GTB Last administered on 11/27/16 13: 07; Admin Dose 100 MG; Start 11/25/16 at 10:00 Famotidine (Pepcid) 20 mg Q12 PO Last administered on 11/27/16 09:15; Admin Dose 20 MG; Start 11/26/16 at 21:00 Citric Acid/ Sodium Citrate 30 ml 30 ml BID GTB Last administered on 09:14; Admin Dose 30 ML; Start 11/26/16 at 21:00 Sodium Bicarbonate/ Dextrose (Na Bicarb/D5W) 1,050 ml @ 100 mls/hr [id number] IV Last administered on 11/27/16 13:07; Admin Dose 100 MLS/HR; Start 11/27/16 at 13:30 NAE VELAZCO Nov 27, 2016 16:11
--- NOTE | 2016-11-27 19:48 | CONS ---
Date/Time of Note Date/Time of Note DATE: 11/27/16 TIME: 19:43 Consult Date/Type/Reason Admit Date/Time Nov 24, 2016 at 21:00 Initial Consult Date 11/25/16 Type of Consultation: ID Ordering Provider: JOSÉ ANTONIO MIRZA MD Objective Vital Signs Date Time Temp Pulse Resp B/P Pulse Ox O2 Delivery O2 Flow Rate FiO2 11/27/16 17:00 72 18 98 40 11/27/16 16:26 98.0 102/58 11/24/16 23:03 Trach Collar Intake and Output 11/26/16 11/26/16 11/27/16 15:00 23:00 07:00 Intake Total 700 ml 300 ml Output Total 1000 ml 2500 ml Balance -300 ml -2200 ml Results/Medications Result Diagram: 11/27/16 1050 11/27/16 1050 Results 24 hrs Laboratory Tests Test 11/27/16 10:50 White Blood Count 6.4 # Red Blood Count 3.28 L Hemoglobin 9.8 L Hematocrit 33.9 L Mean Corpuscular Volume 103.4 H Mean Corpuscular Hemoglobin 29.9 Mean Corpuscular Hemoglobin Concent 28.9 L Red Cell Distribution Width 16.9 H Platelet Count 159 Mean Platelet Volume 10.6 H Neutrophils % 86.8 H Lymphocytes % 5.2 L Monocytes % 4.9 Eosinophils % 2.4 Basophils % 0.2 Nucleated Red Blood Cells % 0.0 Neutrophils # 5.5 Lymphocytes # 0.3 L Monocytes # 0.3 Eosinophils # 0.2 Basophils # 0.0 Nucleated Red Blood Cells # 0.0 Sodium Level 151 H Potassium Level 5.1 Chloride Level 125 H Carbon Dioxide Level 16 L Anion Gap 15 Blood Urea Nitrogen 68 H Creatinine 1.59 H Glucose Level 94 Calcium Level 8.9 Medications Current Medications Ondansetron HCl (Zofran Inj) 4 mg Q6H PRN IV NAUSEA AND/OR VOMITING; Start at 22:00 Acetaminophen (Tylenol Tab) 650 mg Q6H PRN PO PAIN LEVEL 1-3 OR FEVER Last administered on 11/26/16 03:46; Admin Dose 650 MG; Start 11/24/16 at 22:00 Morphine Sulfate (morphine) 2 mg Q4H PRN IV PAIN LEVEL 7-10 Last administered on 11/26/16 15:03; Admin Dose 2 MG; Start 11/24/16 at 22:00 Enoxaparin Sodium 30 mg 30 mg DAILY SC Last administered on 11/27/16 09:22; Admin Dose 30 MG; Start 11/25/16 at 09:00 Cefepime HCl (Maxipime 1gm/50 ml (Pmx)) 50 ml @ 100 mls/hr DAILY IVPB Last administered on 11/27/16 09:15; Admin Dose 100 MLS/HR; Start 11/25/16 at 09: 00 Miscellaneous Information (Pending Santyl Order For Wound Care) This patient noriega... PRN PRN XX WOUND CARE; Start 11/25/16 at 06:00 Baclofen (Lioresal) 5 mg TID GTB Last administered on 11/27/16 13:07; Admin Dose 5 MG; Start 11/25/16 at 09:00 Zolpidem Tartrate (Ambien) 5 mg HS PRN GTB INSOMNIA Last administered on 20:26; Admin Dose 5 MG; Start 11/25/16 at 21:00 Dantrolene Sodium (Dantrium) 100 mg TID GTB Last administered on 11/27/16 13: 07; Admin Dose 100 MG; Start 11/25/16 at 10:00 Famotidine (Pepcid) 20 mg Q12 PO Last administered on 11/27/16 09:15; Admin Dose 20 MG; Start 11/26/16 at 21:00 Citric Acid/ Sodium Citrate 30 ml 30 ml BID GTB Last administered on 09:14; Admin Dose 30 ML; Start 11/26/16 at 21:00 Sodium Bicarbonate/ Dextrose (Na Bicarb/D5W) 1,050 ml @ 100 mls/hr [id number] IV Last administered on 11/27/16 13:07; Admin Dose 100 MLS/HR; Start 11/27/16 at 13:30 Assessment/Plan Chief Complaint/Hosp Course No acute changes overnight, patient is awake, looks comfortable, no fevers CT abdomen and pelvis revealed removal of left double-J ureteral stent. Multiple nonobstructive left renal calculi without ureteral stone. Persistent left hydroureteronephrosis questionable chronic pyelonephritis. Small volume ascites. Sacral decubitus ulcer with partial destruction of the inferior sacrum and coccyx Indwelling's: Trach PEG suprapubic catheter Urine cx + Enterobacter Antimicrobials: Cefepime PHYSICAL EXAMINATION: GENERAL: Chronically ill-appearing, middle-aged, quadriplegic man, who is in no distress. HEENT: Head atraumatic, normocephalic. Sclerae anicteric. Buccal mucosa dry. NECK: Supple. Tracheostomy present. CHEST: Chest rise symmetrical. Breath sounds diminished to bases. HEART: S1, S2. ABDOMEN: Soft, bowel sounds present. EXTREMITIES: Without cyanosis, wasted, + contractures ASSESSMENT: 1. Recurrent UTI 2. Acute renal failure. 3. Quadriplegia 4. Neurogenic bladder 5. History of scabies 4. History of right nephrectomy. 5. Multiple chronic wounds PLAN: Clinically stable, continue antibiotics, nephrology on case, urology recommendations noted Discussed with RN Problems: REGINALDO CHERY NP Nov 27, 2016 19:48
[2016-11-27] MEDS ORDERED: SOD CHLORIDE 0.9% 1,000 ML IV ONE (23:00)
[2016-11-28] VITALS (24 sets, daily range): BP systolic 103–133; BP diastolic 63–90; PULSE 69–120; RESP 17–30
--- NOTE | 2016-11-28 07:49 | PN ---
DATE: 11/27/2016 The patient's general condition is same. He is awake, responsive. He is on continuous ventilator s upport through tracheostomy. His breathing appears unlabored. PHYSICAL EXAMINATION: VITAL SIGNS: Temperature is 98.4, blood pressure 95/54, pulse rate is 104, respirations 18, pulse o ximetry 98% saturation. NECK: Tracheal secretions are minimal and clear. No bleeding is seen. HEART: Regular rhythm. CHEST: Breath sounds are diminished in both the lower lung tierney, otherwise clear. ABDOMEN: Soft, nondistended, no localized tenderness is present. Bowel sounds are heard normally. EXTREMITIES: Show no edema. He is paraplegic. LABORATORY DATA: The arterial blood gases from yesterday showed metabolic acidosis 7.179, pCO2 of 4 1. PO2 83 on 40% oxygen with a PEEP of 5 and a rate of 14. The patient insists on having the cuff deflated so he can talk. He will not allow anybody to inflate the cuff fully. He gets very easily agitated. The chemistry panel is not available from today. CBC shows a WBC 6400, hemoglobin 9.8, hematocrit 3 3.9, platelets within normal limits. IMPRESSION: 1. Acute renal failure on top of chronic kidney disease. 2. Urinary tract infection secondary to enterobacter cloacae. 3. Chronic ventilator dependent respiratory failure. 4. Chronic anemia. 5. . 6. Nephro left kidney status post lithotripsy. 7. Status post . 8. Status post gastrostomy. 9. 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 10. History of psychiatric illness. RECOMMENDATIONS: 1. Continue long-term ventilator support. 2. Continue bronchodilator inhalation therapy to maintain pulmonary hygiene and clear the secretion s. 3. Continue antibiotics as per the infectious disease [employer] consultant. 4. Continue DVT prophylaxis. 5. Bicitra has been added to correct the metabolic acidosis. Dictated By: HUMBERTO PEREZ MD SR/QUE Conf#: [id number] DID#: [id number]
[2016-11-28] MEDS: DANTROLENE 25 MG CAP GTB SCH ×3 (08:54→21:19)
[2016-11-28] MEDS: FAMOTIDINE 20 MG TAB PO SCH ×2 (08:54→21:19)
[2016-11-28] MEDS: BACLOFEN 10 MG TAB GTB SCH ×3 (08:54→21:19)
[2016-11-28] MEDS: CITRIC ACID/NA CITRATE 30 ML CUP GTB SCH ×2 (08:54→21:19)
[2016-11-28] MEDS: CEFEPIME 1GM/50 ML (PMX) 50 ML IVPB SCH (08:54)
[2016-11-28] MEDS: ENOXAPARIN 30 MG/0.3 ML SYG SC SCH (08:57)
[2016-11-28] MEDS: SODIUM BICARBONATE (IV ADD) 50 MEQ in DEXTROSE 5% 1,000 ML IV SCH ×2 (10:34→21:16)
--- NOTE | 2016-11-28 11:09 | PN ---
DATE: 11/28/2016 SUBJECTIVE: The patient's general condition is same. He is awake, responsive. PHYSICAL EXAMINATION: VITAL SIGNS: Stable. No fever spikes. Temperature 98.7. Blood pressure 140/67, pulse rate is 98, respirations 26, pulse oximetry 93% saturation, FiO2 over has been increased 50%. NECK: Tracheal secretions are clear. No bleeding is seen. No obstruction found during suctioning. HEART: Regular rhythm. CHEST: Breath sounds are diminished in both the lower lung tierney with a few intermittent rales and rhonchi in the lung bases. ABDOMEN: Soft, not distended. No vomiting has been reported. EXTREMITIES: Show no edema. He is paraplegic. LABORATORY DATA: Show WBC of 9000, hemoglobin 10.3, hematocrit 34.5, platelets within normal limits . The chemistry panel shows sodium 152, potassium 5, glucose is 89, BUN 58, creatinine 1.48. The u rine culture shows enterobacter cloacae. Renal failure has been gradually improving with IV hydrati on. The arterial blood gases show pH 7.33, PCO2 34, PO2 64 on a rate of 20 with FiO2 of 40%. The F iO2 has been increased to 50%. Urine culture shows Enterobacter cloacae sensitive to cephalosporins. IMPRESSION: 1. Acute renal failure on top of chronic kidney disease, improving. 2. Urine bacterial infection secondary to Enterobacter cloacae. 3. Chronic ventilator dependent respiratory failure. 4. Chronic anemia. 5. Nephrolithiasis, status post lithotripsy in the left kidney. 6. Status post tracheostomy. 7. Status post gastrostomy. 8. 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 9. History of psychiatric illness. PLAN: 1. Continue long-term ventilator support. 2. Continue bronchodilator inhalation therapy to mobilize secretions and improve bronchial hygiene. 3. Continue antibiotics per infectious disease independent marketing consultant. 4. Continue DVT prophylaxis. Dictated By: HUMEBRTO PEREZ MD SR/QUE Conf#: [id number] DID#: [id number]
--- NOTE | 2016-11-28 11:09 | PN ---
DATE: 11/28/2016 SUBJECTIVE: The patient's general condition is same. He is awake, responsive. PHYSICAL EXAMINATION: VITAL SIGNS: Stable. No fever spikes. Temperature 98.7. Blood pressure 140/67, pulse rate is 98, respirations 26, pulse oximetry 93% saturation, FiO2 over has been increased 50%. NECK: Tracheal secretions are clear. No bleeding is seen. No obstruction found during suctioning. HEART: Regular rhythm. CHEST: Breath sounds are diminished in both the lower lung tierney with a few intermittent rales and rhonchi in the lung bases. ABDOMEN: Soft, not distended. No vomiting has been reported. EXTREMITIES: Show no edema. He is paraplegic. LABORATORY DATA: Show WBC of 9000, hemoglobin 10.3, hematocrit 34.5, platelets within normal limits . The chemistry panel shows sodium 152, potassium 5, glucose is 89, BUN 58, creatinine 1.48. The u rine culture shows enterobacter cloacae. Renal failure has been gradually improving with IV hydrati on. The arterial blood gases show pH 7.33, PCO2 34, PO2 64 on a rate of 20 with FiO2 of 40%. The F iO2 has been increased to 50%. Urine culture shows Enterobacter cloacae sensitive to cephalosporins. IMPRESSION: 1. Acute renal failure on top of chronic kidney disease, improving. 2. Urine bacterial infection secondary to Enterobacter cloacae. 3. Chronic ventilator dependent respiratory failure. 4. Chronic anemia. 5. Nephrolithiasis, status post lithotripsy in the left kidney. 6. Status post tracheostomy. 7. Status post gastrostomy. 8. 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 9. History of psychiatric illness. PLAN: 1. Continue long-term ventilator support. 2. Continue bronchodilator inhalation therapy to mobilize secretions and improve bronchial hygiene. 3. Continue antibiotics per infectious disease cruise consultant. 4. Continue DVT prophylaxis. Dictated By: HUMBERTO PEREZ MD SR/QUE Conf#: [id number] DID#: [id number]
--- NOTE | 2016-11-28 11:16 | RADRPT ---
PROCEDURE: XR Chest AP portable CLINICAL INDICATION: Trache placement TECHNIQUE: An AP portable radiograph of the chest was submitted. COMPARISON: 10/21/2016 FINDINGS: Support Hardware: The tracheostomy tube remains satisfactorily positioned and the left upper extremi ty PICC catheter is been removed. Cardiovascular: The cardiovascular silhouette appears unremarkable. Lung Jack: Subsegmental atelectatic changes again seen at the lung bases. Pleural Spaces: Bilateral pleural fluid accumulations are again suspected and unchanged. There is no pneumothorax. Osseous Structures: There is again a moderate dextroscoliotic curve to the thoracic spine. Soft Tissues: The soft tissues appear unremarkable. IMPRESSION: 1. The tracheostomy tube remains satisfactorily positioned while the left upper extremity PICC cath eter is been removed. 2. Bibasilar atelectasis with small bilateral pleural fluid accumulations, unchanged. 3. Persistent moderate dextroscoliotic curve to the thoracic spine. Physician Sylvia Date Time Electronically viewed and signed by Physician Sylvia on 11/28/2016 11:16 /
--- NOTE | 2016-11-28 13:12 | CONS ---
Date/Time of Note Date/Time of Note DATE: 11/28/16 TIME: 13:11 Consult Date/Type/Reason Admit Date/Time Nov 24, 2016 at 21:00 Initial Consult Date 11/25/16 Type of Consultation: ID Ordering Provider: OJSÉ ANTONIO MIRZA MD Objective Vital Signs Date Time Temp Pulse Resp B/P Pulse Ox O2 Delivery O2 Flow Rate FiO2 11/28/16 11:50 98.5 94 24 109/70 90 11/28/16 11:20 60 11/28/16 09:21 Mechanical Ventilator Intake and Output 11/27/16 11/27/16 11/28/16 15:00 23:00 07:00 Intake Total 250 ml 120 ml Output Total 1200 ml 1000 ml Balance -950 ml -880 ml Results/Medications Result Diagram: 11/28/1619 11/28/16618 Results 24 hrs Laboratory Tests Test 11/27/16 21:30 11/28/16 06:19 11/28/16 07:00 Blood Gas Specimen Source Blood arterial Blood arterial Arterial Blood Date Drawn 11/27/2016 9:41:52 PM 11/28/2016 7:20:36 AM Arterial Blood pH (Temp corrected) 7.181 *L 7.336 L Arterial Blood pCO2 (Temp correct) 48.7 H 34.9 L Arterial Blood pO2 (Temp corrected) 353.6 H 64.9 L Arterial Blood HCO3 17.8 L 18.2 L Arterial Blood Base Excess -10.3 L -6.8 L Arterial Blood Oxygen Saturation 99.4 H 93.9 L Julito Test ACCEPTAB ACCEPTAB Arterial Blood Gas Puncture Site Right Radial Right Radial Arterial Blood Carboxyhemoglobin 0.3 0.1 Arterial Blood Methemoglobin 0.3 0.3 Blood Gas A-a O2 Differential 310.7 H 180.2 H Oxyhemoglobin Percent 98.8 93.5 Total Hemoglobin 11.5 L 12.6 Blood Gas Temperature 37.0 37.0 Blood Gas Respiration Rate 14.0 20.0 Blood Gas Actual Respiration Rate 18 25 Blood Gas Modality VENT - AC VENT - AC FiO2 100.0 40.0 Blood Gas Tidal Volume 600.0 600.0 Blood Gas Low PEEP Setting 5.0 Blood Gas Critical Value Read Back Reese ROTHMAN RN Blood Gas Notified Whom Sherry DALEY Blood Gas Notified Time 11/27/2016 9:52:34 PM 11/28/2016 7:33:57 AM White Blood Count 9.0 # Red Blood Count 3.36 L Hemoglobin 10.3 L Hematocrit 34.5 L Mean Corpuscular Volume 102.7 H Mean Corpuscular Hemoglobin 30.7 Mean Corpuscular Hemoglobin Concent 29.9 L Red Cell Distribution Width 17.2 H Platelet Count 147 Mean Platelet Volume 10.6 H Neutrophils % 92.4 H Lymphocytes % 3.3 L Monocytes % 3.6 Eosinophils % 0.3 Basophils % 0.1 Nucleated Red Blood Cells % 0.0 Neutrophils # 8.3 H Lymphocytes # 0.3 L Monocytes # 0.3 Eosinophils # 0.0 Basophils # 0.0 Nucleated Red Blood Cells # 0.0 Sodium Level 152 H Potassium Level 5.0 Chloride Level 126 H Carbon Dioxide Level 19 L Anion Gap 12 Blood Urea Nitrogen 58 H Creatinine 1.48 H Glucose Level 89 Calcium Level 8.6 Blood Gas High PEEP Setting 5.0 Medications Current Medications Ondansetron HCl (Zofran Inj) 4 mg Q6H PRN IV NAUSEA AND/OR VOMITING; Start at 22:00 Acetaminophen (Tylenol Tab) 650 mg Q6H PRN PO PAIN LEVEL 1-3 OR FEVER Last administered on 11/26/16 03:46; Admin Dose 650 MG; Start 11/24/16 at 22:00 Morphine Sulfate (morphine) 2 mg Q4H PRN IV PAIN LEVEL 7-10 Last administered on 11/26/16 15:03; Admin Dose 2 MG; Start 11/24/16 at 22:00 Enoxaparin Sodium 30 mg 30 mg DAILY SC Last administered on 11/28/16 08:57; Admin Dose 30 MG; Start 11/25/16 at 09:00 Cefepime HCl (Maxipime 1gm/50 ml (Pmx)) 50 ml @ 100 mls/hr DAILY IVPB Last administered on 11/28/16 08:54; Admin Dose 100 MLS/HR; Start 11/25/16 at 09: 00 Miscellaneous Information (Pending Santyl Order For Wound Care) This patient noriega... PRN PRN XX WOUND CARE; Start 11/25/16 at 06:00 Baclofen (Lioresal) 5 mg TID GTB Last administered on 11/28/16 12:53; Admin Dose 5 MG; Start 11/25/16 at 09:00 Zolpidem Tartrate (Ambien) 5 mg HS PRN GTB INSOMNIA Last administered on 20:26; Admin Dose 5 MG; Start 11/25/16 at 21:00 Dantrolene Sodium (Dantrium) 100 mg TID GTB Last administered on 11/28/16 12: 53; Admin Dose 100 MG; Start 11/25/16 at 10:00 Famotidine (Pepcid) 20 mg Q12 PO Last administered on 11/28/16 08:54; Admin Dose 20 MG; Start 11/26/16 at 21:00 Citric Acid/ Sodium Citrate 30 ml 30 ml BID GTB Last administered on 08:54; Admin Dose 30 ML; Start 11/26/16 at 21:00 Sodium Bicarbonate/ Dextrose (Na Bicarb/D5W) 1,050 ml @ 100 mls/hr [id number] IV Last administered on 11/28/16 10:34; Admin Dose 100 MLS/HR; Start 11/27/16 at 13:30 Assessment/Plan Chief Complaint/Hosp Course No acute changes overnight, patient is awake, looks comfortable, no fevers CT abdomen and pelvis revealed removal of left double-J ureteral stent. Multiple nonobstructive left renal calculi without ureteral stone. Persistent left hydroureteronephrosis questionable chronic pyelonephritis. Small volume ascites. Sacral decubitus ulcer with partial destruction of the inferior sacrum and coccyx Indwelling's: Trach PEG suprapubic catheter Urine cx + Enterobacter/GNR Antimicrobials: Cefepime PHYSICAL EXAMINATION: GENERAL: Chronically ill-appearing, middle-aged, quadriplegic man, who is in no distress. HEENT: Head atraumatic, normocephalic. Sclerae anicteric. Buccal mucosa dry. NECK: Supple. Tracheostomy present. CHEST: Chest rise symmetrical. Breath sounds diminished to bases. HEART: S1, S2. ABDOMEN: Soft, bowel sounds present. EXTREMITIES: Without cyanosis, wasted, + contractures ASSESSMENT: 1. Recurrent UTI 2. Acute renal failure. 3. Quadriplegia 4. Neurogenic bladder 5. History of scabies 4. History of right nephrectomy. 5. Multiple chronic wounds PLAN: Clinically stable, continue antibiotics, f/u final urine cx, nephrology on case, urology/pulmonary recommendations Discussed with RN Problems: REGINALDO CHERY NP Nov 28, 2016 13:12
--- NOTE | 2016-11-28 15:39 | PN ---
Date/Time of Note Date/Time of Note DATE: 11/28/16 TIME: 15:33 Assessment/Plan VTE Prophylaxis VTE Prophylaxis Intervention: SCD's Lines/Catheters IV [facility] (from [facility] Saline Lock Urinary Cath still in place: No (suprapubic cath) Assessment/Plan Chief Complaint/Hosp Course Assessment/Plan - Acute kidney injury, Dr. Barker will be following patient in nephrology consultation - Uremia -Recurrent urinary tract infection. Continue acute antibiotics per ID. Dr. Maciel is following in infection disease consultation. - Neurogenic bladder with suprapubic catheter. - Left renal nephrolithiasis, S/p lithotripsy and removal of a left ureteral JJ stent by Dr. Marquez 10/29. - Acute kidney injury on chronic kidney disease. - Status post right nephrectomy - Ventilator-dependent respiratory failure with tracheostomy. - Dysphagia with percutaneous endoscopic gastrostomy tube. - Multiple decubitus ulcers present on admission. - Cervical spine injury with paraplegia. - Bipolar disorder with psychosis. Further recommendations based on clinical course. Plan of care discussed with Dr. Barreto. Problems: Exam/Review of Systems Vital Signs Vitals Vital Signs Date Time Temp Pulse Resp B/P Pulse Ox O2 Delivery O2 Flow Rate FiO2 11/28/16 15:11 109 27 93 60 11/28/16 11:50 98.5 109/70 11/28/16 09:21 Mechanical Ventilator Intake and Output 11/27/16 11/27/16 11/28/16 15:00 23:00 07:00 Intake Total 250 ml 120 ml Output Total 1200 ml 1000 ml Balance -950 ml -880 ml Exam Constitutional: alert, oriented Neck: other (trach), supple Respiratory: normal air movement Cardiovascular: nl pulses, regular rate and rhythm Gastrointestinal: non-tender, other (GT), soft Extremities: normal pulses, contracted. Skin: other (wounds) Results Result Diagram: 11/28/1661811/28/16618 Results 24 hrs Laboratory Tests Test 11/27/16 21:30 11/28/16 06:19 11/28/16 07:00 Blood Gas Specimen Source Blood arterial Blood arterial Arterial Blood Date Drawn 11/27/2016 9:41:52 PM 11/28/2016 7:20:36 AM Arterial Blood pH (Temp corrected) 7.181 *L 7.336 L Arterial Blood pCO2 (Temp correct) 48.7 H 34.9 L Arterial Blood pO2 (Temp corrected) 353.6 H 64.9 L Arterial Blood HCO3 17.8 L 18.2 L Arterial Blood Base Excess -10.3 L -6.8 L Arterial Blood Oxygen Saturation 99.4 H 93.9 L Julito Test ACCEPTAB ACCEPTAB Arterial Blood Gas Puncture Site Right Radial Right Radial Arterial Blood Carboxyhemoglobin 0.3 0.1 Arterial Blood Methemoglobin 0.3 0.3 Blood Gas A-a O2 Differential 310.7 H 180.2 H Oxyhemoglobin Percent 98.8 93.5 Total Hemoglobin 11.5 L 12.6 Blood Gas Temperature 37.0 37.0 Blood Gas Respiration Rate 14.0 20.0 Blood Gas Actual Respiration Rate 18 25 Blood Gas Modality VENT - AC VENT - AC FiO2 100.0 40.0 Blood Gas Tidal Volume 600.0 600.0 Blood Gas Low PEEP Setting 5.0 Blood Gas Critical Value Read Back Reese ROTHMAN RN Blood Gas Notified Whom Sherry DALEY Blood Gas Notified Time 11/27/2016 9:52:34 PM 11/28/2016 7:33:57 AM White Blood Count 9.0 # Red Blood Count 3.36 L Hemoglobin 10.3 L Hematocrit 34.5 L Mean Corpuscular Volume 102.7 H Mean Corpuscular Hemoglobin 30.7 Mean Corpuscular Hemoglobin Concent 29.9 L Red Cell Distribution Width 17.2 H Platelet Count 147 Mean Platelet Volume 10.6 H Neutrophils % 92.4 H Lymphocytes % 3.3 L Monocytes % 3.6 Eosinophils % 0.3 Basophils % 0.1 Nucleated Red Blood Cells % 0.0 Neutrophils # 8.3 H Lymphocytes # 0.3 L Monocytes # 0.3 Eosinophils # 0.0 Basophils # 0.0 Nucleated Red Blood Cells # 0.0 Sodium Level 152 H Potassium Level 5.0 Chloride Level 126 H Carbon Dioxide Level 19 L Anion Gap 12 Blood Urea Nitrogen 58 H Creatinine 1.48 H Glucose Level 89 Calcium Level 8.6 Blood Gas High PEEP Setting 5.0 Medications Medications Current Medications Ondansetron HCl (Zofran Inj) 4 mg Q6H PRN IV NAUSEA AND/OR VOMITING; Start at 22:00 Acetaminophen (Tylenol Tab) 650 mg Q6H PRN PO PAIN LEVEL 1-3 OR FEVER Last administered on 11/26/16 03:46; Admin Dose 650 MG; Start 11/24/16 at 22:00 Morphine Sulfate (morphine) 2 mg Q4H PRN IV PAIN LEVEL 7-10 Last administered on 11/26/16 15:03; Admin Dose 2 MG; Start 11/24/16 at 22:00 Enoxaparin Sodium 30 mg 30 mg DAILY SC Last administered on 11/28/16 08:57; Admin Dose 30 MG; Start 11/25/16 at 09:00 Cefepime HCl (Maxipime 1gm/50 ml (Pmx)) 50 ml @ 100 mls/hr DAILY IVPB Last administered on 11/28/16 08:54; Admin Dose 100 MLS/HR; Start 11/25/16 at 09: 00 Miscellaneous Information (Pending [facility] Order For Wound Care) This patient noriega... PRN PRN XX WOUND CARE; Start 11/25/16 at 06:00 Baclofen (Lioresal) 5 mg TID GTB Last administered on 11/28/16 12:53; Admin Dose 5 MG; Start 11/25/16 at 09:00 Zolpidem Tartrate (Ambien) 5 mg HS PRN GTB INSOMNIA Last administered on 20:26; Admin Dose 5 MG; Start 11/25/16 at 21:00 Dantrolene Sodium (Dantrium) 100 mg TID GTB Last administered on 11/28/16 12: 53; Admin Dose 100 MG; Start 11/25/16 at 10:00 Famotidine (Pepcid) 20 mg Q12 PO Last administered on 11/28/16 08:54; Admin Dose 20 MG; Start 11/26/16 at 21:00 Citric Acid/ Sodium Citrate 30 ml 30 ml BID GTB Last administered on 08:54; Admin Dose 30 ML; Start 11/26/16 at 21:00 Sodium Bicarbonate/ Dextrose (Na Bicarb/D5W) 1,050 ml @ 100 mls/hr [id number] IV Last administered on 11/28/16 10:34; Admin Dose 100 MLS/HR; Start 11/27/16 at 13:30 AISSATOU DUNCAN Nov 28, 2016 15:39
--- NOTE | 2016-11-28 17:34 | CONS ---
Date/Time of Note Date/Time of Note DATE: 11/28/16 TIME: 17:32 Assessment/Plan Assessment/Plan Additional Assessment/Plan 1. Acute kidney injury secondary to severe prerenal azotemia and possible acute tubular necrosis. 2. Acute uremia with a BUN of 107, Cr 1.99 on admission 3. Acute hyperkalemia due to BELINDA 4. Possible UTI casuign sepsis 5. 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 6. History of neurogenic bladder with urinary retention, status post suprapubic catheter. 7. History of previous recurrent urinary tract infections. 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 9. 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 10. Other medical history includes anxiety, depression, bipolar disorder, psychosis. 11. History of right nephrectomy with left renal nephrolithiasis and a left renal cyst measuring 5.3 cm in size. Plan: S/p IVF NS hydration in ED continue IVF to D5W with sodium bicarbonate 100meQ at 100 cc/hr, BUN/Cr improving but Na still high,expecting it to improve with IVF bicitra for metabolic acidosis IV abx Cefepime ID consulted on case pt previosly had a full CKD work up, no need to repeat it will continue to follow up on patient Consultation Date/Type/Reason Admit Date/Time Nov 24, 2016 at 21:00 Initial Consult Date 11/25/16 Type of Consultation: NEPHROLOGY Referring Provider: JOSÉ ANTONIO MIRZA MD Exam/Review of Systems Vital Signs Vitals Vital Signs Date Time Temp Pulse Resp B/P Pulse Ox O2 Delivery O2 Flow Rate FiO2 11/28/16 17:11 107 25 92 60 11/28/16 17:01 98.0 106/90 11/28/16 09:21 Mechanical Ventilator Intake and Output 11/27/16 11/27/16 11/28/16 15:00 23:00 07:00 Intake Total 250 ml 120 ml Output Total 1200 ml 1000 ml Balance -950 ml -880 ml Exam Constitutional: alert, non-verbal ENMT: nl external ears & nose, other (+ tracheostom on ventilator ) Neck: non-tender, supple Respiratory: congested cough, crackles/rales, diminished breath sounds Cardiovascular: nl pulses, regular rate and rhythm Gastrointestinal: non-tender, soft, Results Result Diagram: 11/28/16 0619 11/28/16 0619 Results 24 hrs Laboratory Tests Test 11/27/16 21:30 11/28/16 06:19 11/28/16 07:00 Blood Gas Specimen Source Blood arterial Blood arterial Arterial Blood Date Drawn 11/27/2016 9:41:52 PM 11/28/2016 7:20:36 AM Arterial Blood pH (Temp corrected) 7.181 *L 7.336 L Arterial Blood pCO2 (Temp correct) 48.7 H 34.9 L Arterial Blood pO2 (Temp corrected) 353.6 H 64.9 L Arterial Blood HCO3 17.8 L 18.2 L Arterial Blood Base Excess -10.3 L -6.8 L Arterial Blood Oxygen Saturation 99.4 H 93.9 L Julito Test ACCEPTAB ACCEPTAB Arterial Blood Gas Puncture Site Right Radial Right Radial Arterial Blood Carboxyhemoglobin 0.3 0.1 Arterial Blood Methemoglobin 0.3 0.3 Blood Gas A-a O2 Differential 310.7 H 180.2 H Oxyhemoglobin Percent 98.8 93.5 Total Hemoglobin 11.5 L 12.6 Blood Gas Temperature 37.0 37.0 Blood Gas Respiration Rate 14.0 20.0 Blood Gas Actual Respiration Rate 18 25 Blood Gas Modality VENT - AC VENT - AC FiO2 100.0 40.0 Blood Gas Tidal Volume 600.0 600.0 Blood Gas Low PEEP Setting 5.0 Blood Gas Critical Value Read Back Reese ROTHMAN RN Blood Gas Notified Whom Sherry CARDOZAII Blood Gas Notified Time 11/27/2016 9:52:34 PM 11/28/2016 7:33:57 AM White Blood Count 9.0 # Red Blood Count 3.36 L Hemoglobin 10.3 L Hematocrit 34.5 L Mean Corpuscular Volume 102.7 H Mean Corpuscular Hemoglobin 30.7 Mean Corpuscular Hemoglobin Concent 29.9 L Red Cell Distribution Width 17.2 H Platelet Count 147 Mean Platelet Volume 10.6 H Neutrophils % 92.4 H Lymphocytes % 3.3 L Monocytes % 3.6 Eosinophils % 0.3 Basophils % 0.1 Nucleated Red Blood Cells % 0.0 Neutrophils # 8.3 H Lymphocytes # 0.3 L Monocytes # 0.3 Eosinophils # 0.0 Basophils # 0.0 Nucleated Red Blood Cells # 0.0 Sodium Level 152 H Potassium Level 5.0 Chloride Level 126 H Carbon Dioxide Level 19 L Anion Gap 12 Blood Urea Nitrogen 58 H Creatinine 1.48 H Glucose Level 89 Calcium Level 8.6 Blood Gas High PEEP Setting 5.0 Medications Medications Current Medications Ondansetron HCl (Zofran Inj) 4 mg Q6H PRN IV NAUSEA AND/OR VOMITING; Start at 22:00 Acetaminophen (Tylenol Tab) 650 mg Q6H PRN PO PAIN LEVEL 1-3 OR FEVER Last administered on 11/26/16 03:46; Admin Dose 650 MG; Start 11/24/16 at 22:00 Morphine Sulfate (morphine) 2 mg Q4H PRN IV PAIN LEVEL 7-10 Last administered on 11/26/16 15:03; Admin Dose 2 MG; Start 11/24/16 at 22:00 Enoxaparin Sodium 30 mg 30 mg DAILY SC Last administered on 11/28/16 08:57; Admin Dose 30 MG; Start 11/25/16 at 09:00 Cefepime HCl (Maxipime 1gm/50 ml (Pmx)) 50 ml @ 100 mls/hr DAILY IVPB Last administered on 11/28/16 08:54; Admin Dose 100 MLS/HR; Start 11/25/16 at 09: 00 Miscellaneous Information (Pending [facility] Order For Wound Care) This patient noriega... PRN PRN XX WOUND CARE; Start 11/25/16 at 06:00 Baclofen (Lioresal) 5 mg TID GTB Last administered on 11/28/16 12:53; Admin Dose 5 MG; Start 11/25/16 at 09:00 Zolpidem Tartrate (Ambien) 5 mg HS PRN GTB INSOMNIA Last administered on 20:26; Admin Dose 5 MG; Start 11/25/16 at 21:00 Dantrolene Sodium (Dantrium) 100 mg TID GTB Last administered on 11/28/16 12: 53; Admin Dose 100 MG; Start 11/25/16 at 10:00 Famotidine (Pepcid) 20 mg Q12 PO Last administered on 11/28/16 08:54; Admin Dose 20 MG; Start 11/26/16 at 21:00 Citric Acid/ Sodium Citrate 30 ml 30 ml BID GTB Last administered on 08:54; Admin Dose 30 ML; Start 11/26/16 at 21:00 Sodium Bicarbonate/ Dextrose (Na Bicarb/D5W) 1,050 ml @ 100 mls/hr [id number] IV Last administered on 11/28/16 10:34; Admin Dose 100 MLS/HR; Start 11/27/16 at 13:30 TIARA CISNEROS MD Nov 28, 2016 17:34
--- NOTE | 2016-11-28 19:30 | PN ---
Date/Time of Note Date/Time of Note DATE: 11/28/16 TIME: 19:24 Assessment/Plan VTE Prophylaxis VTE Prophylaxis Intervention: other (Patient has inferior vena cava umbrella) Lines/Catheters [facility] Saline Lock Urinary Cath still in place: No (suprapubic cath) Assessment/Plan Chief Complaint/Hosp Course 41-year-old male status post right nephrectomy many years back, has only left kidney with stones in it. He did have a JJ stent that has been there for over 1 year and I removed it a few weeks back. The patient does have a suprapubic catheter that is draining clear urine with purulent sediment. He has had urinary tract infection and is on antibiotic for it. CT scan done yesterday showed the stones in the kidney but no stones in the ureter to cause obstruction therefore there is no need for him to have a JJ stent at the present. Recommend hydration and treating the infection as per the culture and sensitivity Problems: Subjective 24 Hr Interval Summary Subjective hx not possible: pt non-verbal Constitutional: no complaints Respiratory: no complaints, other (Patient on respirator) Cardiovascular: no complaints Gastrointestinal: no complaints Genitourinary: other (Patient has a suprapubic tube) Musculoskeletal: no complaints Exam/Review of Systems Vital Signs Vitals Vital Signs Date Time Temp Pulse Resp B/P Pulse Ox O2 Delivery O2 Flow Rate FiO2 11/28/16 17:11 107 25 92 60 11/28/16 17:01 98.0 106/90 11/28/16 09:21 Mechanical Ventilator Intake and Output 11/27/16 11/27/16 11/28/16 15:00 23:00 07:00 Intake Total 250 ml 120 ml Output Total 1200 ml 1000 ml Balance -950 ml -880 ml Exam Constitutional: alert Psych: no complaints Head: atraumatic Eyes: nl conjunctiva ENMT: nl external ears & nose Neck: supple Respiratory: clear to auscultation Cardiovascular: No edema Gastrointestinal: soft Genitourinary - Male: other (Suprapubic tube in place and draining clear urine) Results Result Diagram: 11/28/16 0619 11/28/1619 Results 24 hrs Laboratory Tests Test 11/27/16 21:30 11/28/16 06:19 11/28/16 07:00 Blood Gas Specimen Source Blood arterial Blood arterial Arterial Blood Date Drawn 11/27/2016 9:41:52 PM 11/28/2016 7:20:36 AM Arterial Blood pH (Temp corrected) 7.181 *L 7.336 L Arterial Blood pCO2 (Temp correct) 48.7 H 34.9 L Arterial Blood pO2 (Temp corrected) 353.6 H 64.9 L Arterial Blood HCO3 17.8 L 18.2 L Arterial Blood Base Excess -10.3 L -6.8 L Arterial Blood Oxygen Saturation 99.4 H 93.9 L Julito Test ACCEPTAB ACCEPTAB Arterial Blood Gas Puncture Site Right Radial Right Radial Arterial Blood Carboxyhemoglobin 0.3 0.1 Arterial Blood Methemoglobin 0.3 0.3 Blood Gas A-a O2 Differential 310.7 H 180.2 H Oxyhemoglobin Percent 98.8 93.5 Total Hemoglobin 11.5 L 12.6 Blood Gas Temperature 37.0 37.0 Blood Gas Respiration Rate 14.0 20.0 Blood Gas Actual Respiration Rate 18 25 Blood Gas Modality VENT - AC VENT - AC FiO2 100.0 40.0 Blood Gas Tidal Volume 600.0 600.0 Blood Gas Low PEEP Setting 5.0 Blood Gas Critical Value Read Back Reese ROTHMAN RN Blood Gas Notified Whom Sherry DALEY Blood Gas Notified Time 11/27/2016 9:52:34 PM 11/28/2016 7:33:57 AM White Blood Count 9.0 # Red Blood Count 3.36 L Hemoglobin 10.3 L Hematocrit 34.5 L Mean Corpuscular Volume 102.7 H Mean Corpuscular Hemoglobin 30.7 Mean Corpuscular Hemoglobin Concent 29.9 L Red Cell Distribution Width 17.2 H Platelet Count 147 Mean Platelet Volume 10.6 H Neutrophils % 92.4 H Lymphocytes % 3.3 L Monocytes % 3.6 Eosinophils % 0.3 Basophils % 0.1 Nucleated Red Blood Cells % 0.0 Neutrophils # 8.3 H Lymphocytes # 0.3 L Monocytes # 0.3 Eosinophils # 0.0 Basophils # 0.0 Nucleated Red Blood Cells # 0.0 Sodium Level 152 H Potassium Level 5.0 Chloride Level 126 H Carbon Dioxide Level 19 L Anion Gap 12 Blood Urea Nitrogen 58 H Creatinine 1.48 H Glucose Level 89 Calcium Level 8.6 Blood Gas High PEEP Setting 5.0 Medications Medications Current Medications Ondansetron HCl (Zofran Inj) 4 mg Q6H PRN IV NAUSEA AND/OR VOMITING; Start at 22:00 Acetaminophen (Tylenol Tab) 650 mg Q6H PRN PO PAIN LEVEL 1-3 OR FEVER Last administered on 11/26/16 03:46; Admin Dose 650 MG; Start 11/24/16 at 22:00 Morphine Sulfate (morphine) 2 mg Q4H PRN IV PAIN LEVEL 7-10 Last administered on 11/26/16 15:03; Admin Dose 2 MG; Start 11/24/16 at 22:00 Enoxaparin Sodium 30 mg 30 mg DAILY SC Last administered on 11/28/16 08:57; Admin Dose 30 MG; Start 11/25/16 at 09:00 Cefepime HCl (Maxipime 1gm/50 ml (Pmx)) 50 ml @ 100 mls/hr DAILY IVPB Last administered on 11/28/16 08:54; Admin Dose 100 MLS/HR; Start 11/25/16 at 09: 00 Miscellaneous Information ([facility] This patient noriega... PRN PRN XX WOUND CARE; Start 11/25/16 at 06:00 Baclofen (Lioresal) 5 mg TID GTB Last administered on 11/28/16 12:53; Admin Dose 5 MG; Start 11/25/16 at 09:00 Zolpidem Tartrate (Ambien) 5 mg HS PRN GTB INSOMNIA Last administered on 20:26; Admin Dose 5 MG; Start 11/25/16 at 21:00 Dantrolene Sodium (Dantrium) 100 mg TID GTB Last administered on 11/28/16 12: 53; Admin Dose 100 MG; Start 11/25/16 at 10:00 Famotidine (Pepcid) 20 mg Q12 PO Last administered on 11/28/16 08:54; Admin Dose 20 MG; Start 11/26/16 at 21:00 Citric Acid/ Sodium Citrate 30 ml 30 ml BID GTB Last administered on 08:54; Admin Dose 30 ML; Start 11/26/16 at 21:00 Sodium Bicarbonate/ Dextrose (Na Bicarb/D5W) 1,050 ml @ 100 mls/hr [id number] IV Last administered on 11/28/16 10:34; Admin Dose 100 MLS/HR; Start 11/27/16 at 13:30 BHARGAV JIANG MD Nov 28, 2016 19:30
[2016-11-29] VITALS (49 sets, daily range): BP systolic 92–142; BP diastolic 61–109; PULSE 78–126; RESP 12–33
[2016-11-29] MEDS: SODIUM BICARBONATE (IV ADD) 50 MEQ in DEXTROSE 5% 1,000 ML IV SCH ×2 (07:30→12:29)
[2016-11-29] MEDS: morphine 2 MG INJ IV PRN ×2 (07:37→18:21)
[2016-11-29] MEDS: FAMOTIDINE 20 MG TAB PO SCH ×2 (09:29→21:31)
[2016-11-29] MEDS: BACLOFEN 10 MG TAB GTB SCH ×3 (09:29→21:31)
[2016-11-29] MEDS: CITRIC ACID/NA CITRATE 30 ML CUP GTB SCH ×2 (09:29→21:32)
[2016-11-29] MEDS: DANTROLENE 25 MG CAP GTB SCH ×3 (09:29→21:31)
[2016-11-29] MEDS: ENOXAPARIN 30 MG/0.3 ML SYG SC SCH (09:30)
[2016-11-29] MEDS: CEFEPIME 1GM/50 ML (PMX) 50 ML IVPB SCH (09:30)
--- NOTE | 2016-11-29 12:56 | CONS ---
Date/Time of Note Date/Time of Note DATE: 11/29/16 TIME: 12:53 Consult Date/Type/Reason Admit Date/Time Nov 24, 2016 at 21:00 Initial Consult Date 11/25/16 Type of Consultation: ID Ordering Provider: JOSÉ ANTONIO MIRZA MD Objective Vital Signs Date Time Temp Pulse Resp B/P Pulse Ox O2 Delivery O2 Flow Rate FiO2 11/29/16 08:00 113 11/29/16 06:00 28 130/85 96 Mechanical Ventilator 11/29/16 05:12 60 11/29/16 04:00 98.9 Intake and Output 11/28/16 11/28/16 11/29/16 15:00 23:00 07:00 Intake Total 50 ml 980 ml 600 ml Output Total 1450 ml 600 ml Balance 50 ml -470 ml 0 ml Results/Medications Result Diagram: 11/29/16 0545 11/29/16 0545 Results 24 hrs Laboratory Tests Test 11/28/16 20:15 11/29/16 05:45 Lactic Acid Level 1.8 White Blood Count 24.7 #H Red Blood Count 3.90 L Hemoglobin 12.0 L Hematocrit 38.4 L Mean Corpuscular Volume 98.5 Mean Corpuscular Hemoglobin 30.8 Mean Corpuscular Hemoglobin Concent 31.3 L Red Cell Distribution Width 17.2 H Platelet Count 174 Mean Platelet Volume 10.7 H Neutrophils % 93.5 H Lymphocytes % 2.5 L Monocytes % 3.4 Eosinophils % 0.0 Basophils % 0.1 Nucleated Red Blood Cells % 0.0 Neutrophils # 23.1 H Lymphocytes # 0.6 L Monocytes # 0.8 Eosinophils # 0.0 Basophils # 0.0 Nucleated Red Blood Cells # 0.0 Sodium Level 152 H Potassium Level 4.5 Chloride Level 121 H Carbon Dioxide Level 22 Anion Gap 14 Blood Urea Nitrogen 49 H Creatinine 1.43 H Glucose Level 116 Calcium Level 9.0 Medications Current Medications Ondansetron HCl (Zofran Inj) 4 mg Q6H PRN IV NAUSEA AND/OR VOMITING; Start at 22:00 Acetaminophen (Tylenol Tab) 650 mg Q6H PRN PO PAIN LEVEL 1-3 OR FEVER Last administered on 11/26/16t 03:46; Admin Dose 650 MG; Start 11/24/16 at 22:00 Morphine Sulfate (morphine) 2 mg Q4H PRN IV PAIN LEVEL 7-10 Last administered on 11/29/16 07:37; Admin Dose 2 MG; Start 11/24/16 at 22:00 Enoxaparin Sodium 30 mg 30 mg DAILY SC Last administered on 11/29/16 09:30; Admin Dose 30 MG; Start 11/25/16 at 09:00 Cefepime HCl (Maxipime 1gm/50 ml (Pmx)) 50 ml @ 100 mls/hr DAILY IVPB Last administered on 11/29/16 09:30; Admin Dose 100 MLS/HR; Start 11/25/16 at 09: 00 Miscellaneous Information (Pending [facility] Order For Wound Care) This patient noriega... PRN PRN XX WOUND CARE; Start 11/25/16 at 06:00 Baclofen (Lioresal) 5 mg TID GTB Last administered on 11/29/16 12:29; Admin Dose 5 MG; Start 11/25/16 at 09:00 Zolpidem Tartrate (Ambien) 5 mg HS PRN GTB INSOMNIA Last administered on 20:26; Admin Dose 5 MG; Start 11/25/16 at 21:00 Dantrolene Sodium (Dantrium) 100 mg TID GTB Last administered on 11/29/16 12: 29; Admin Dose 100 MG; Start 11/25/16 at 10:00 Famotidine (Pepcid) 20 mg Q12 PO Last administered on 11/29/16 09:29; Admin Dose 20 MG; Start 11/26/16 at 21:00 Citric Acid/ Sodium Citrate 30 ml 30 ml BID GTB Last administered on 09:29; Admin Dose 30 ML; Start 11/26/16 at 21:00 Sodium Bicarbonate/ Dextrose (Na Bicarb/D5W) 1,050 ml @ 100 mls/hr [id number] IV Last administered on 11/29/16 12:29; Admin Dose 100 MLS/HR; Start 11/27/16 at 13:30 Assessment/Plan Chief Complaint/Hosp Course Patient was transferred to ICU yesterday secondary to decreased saturation he had an uneventful night, currently sleeping looks comfortable and in no distress Indwelling's: Trach PEG suprapubic catheter Urine cx + Enterobacter/Morganella Antimicrobials: Cefepime PHYSICAL EXAMINATION: GENERAL: Chronically ill-appearing, middle-aged, quadriplegic man, who is in no distress. HEENT: Head atraumatic, normocephalic. Sclerae anicteric. Buccal mucosa dry. NECK: Supple. Tracheostomy present. CHEST: Chest rise symmetrical. Breath sounds diminished to bases. HEART: S1, S2. ABDOMEN: Soft, bowel sounds present. EXTREMITIES: Without cyanosis, wasted, + contractures ASSESSMENT: 1. Acute on chronic respiratory failure ?aspiration 1. Recurrent UTI 2. Acute renal failure. 3. Quadriplegia 4. Neurogenic bladder 5. History of scabies 4. History of right nephrectomy. 5. Multiple chronic wounds PLAN: Clinically stable, with significant leukocytosis, will order blood cultures, change antibiotics to vancomycin and meropenem, order chest x-ray. Continue present care, vent per pulmonary, follow urology recommendations Discussed with RN Problems: REGINALDO CHERY NP Nov 29, 2016 12:55
[2016-11-29] MEDS ORDERED: VANCOMYCIN IV PER PHARMACY XX SCH (13:00)
--- NOTE | 2016-11-29 13:41 | CONS ---
Date/Time of Note Date/Time of Note DATE: 11/29/16 TIME: 13:38 Assessment/Plan Assessment/Plan Additional Assessment/Plan 1. Acute kidney injury secondary to severe prerenal azotemia and possible acute tubular necrosis. 2. Acute uremia with a BUN of 107, Cr 1.99 on admission 3. Acute hyperkalemia due to BELINDA , severe metabolic acidosis on bicarbonate drip 4. Possible UTI causing sepsis 5. 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 6. History of neurogenic bladder with urinary retention, status post suprapubic catheter. 7. History of previous recurrent urinary tract infections. 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 9. 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 10. Other medical history includes anxiety, depression, bipolar disorder, psychosis. 11. History of right nephrectomy with left renal nephrolithiasis and a left renal cyst measuring 5.3 cm in size. Plan: continue IVF D5W with sodium bicarbonate 100meQ at 100 cc/hr, BUN/Cr improving 49/1.43 bicitra for metabolic acidosis IV abx Meropenem and vancomycin, WBC 24 pt previosly had a full CKD work up, no need to repeat it will continue to follow up on patient Consultation Date/Type/Reason Admit Date/Time Nov 24, 2016 at 21:00 Initial Consult Date 11/25/16 Type of Consultation: NEPHROLOGY Referring Provider: JOSÉ ANTONIO MIRZA MD 24 HR Interval Summary Free Text/Dictation BUN/Cr improving, s/p exchange of tracheostomy t ube, BP stable, Na still high Exam/Review of Systems Vital Signs Vitals Vital Signs Date Time Temp Pulse Resp B/P Pulse Ox O2 Delivery O2 Flow Rate FiO2 11/29/16 08:00 113 11/29/16 06:00 28 130/85 96 Mechanical Ventilator 11/29/16 05:12 60 11/29/16 04:00 98.9 Intake and Output 11/28/16 11/28/16 11/29/16 15:00 23:00 07:00 Intake Total 50 ml 980 ml 600 ml Output Total 1450 ml 600 ml Balance 50 ml -470 ml 0 ml Exam Constitutional: alert, non-verbal ENMT: nl external ears & nose, other (+ tracheostom on ventilator ) Neck: non-tender, supple Respiratory: congested cough, crackles/rales, diminished breath sounds Cardiovascular: nl pulses, regular rate and rhythm Gastrointestinal: non-tender, soft, Results Result Diagram: 11/29/16 0545 11/29/16 0545 Results 24 hrs Laboratory Tests Test 11/28/16 20:15 11/29/16 05:45 Lactic Acid Level 1.8 White Blood Count 24.7 #H Red Blood Count 3.90 L Hemoglobin 12.0 L Hematocrit 38.4 L Mean Corpuscular Volume 98.5 Mean Corpuscular Hemoglobin 30.8 Mean Corpuscular Hemoglobin Concent 31.3 L Red Cell Distribution Width 17.2 H Platelet Count 174 Mean Platelet Volume 10.7 H Neutrophils % 93.5 H Lymphocytes % 2.5 L Monocytes % 3.4 Eosinophils % 0.0 Basophils % 0.1 Nucleated Red Blood Cells % 0.0 Neutrophils # 23.1 H Lymphocytes # 0.6 L Monocytes # 0.8 Eosinophils # 0.0 Basophils # 0.0 Nucleated Red Blood Cells # 0.0 Sodium Level 152 H Potassium Level 4.5 Chloride Level 121 H Carbon Dioxide Level 22 Anion Gap 14 Blood Urea Nitrogen 49 H Creatinine 1.43 H Glucose Level 116 Calcium Level 9.0 Medications Medications Current Medications Ondansetron HCl (Zofran Inj) 4 mg Q6H PRN IV NAUSEA AND/OR VOMITING; Start at 22:00 Acetaminophen (Tylenol Tab) 650 mg Q6H PRN PO PAIN LEVEL 1-3 OR FEVER Last administered on 11/26/16 03:46; Admin Dose 650 MG; Start 11/24/16 at 22:00 Morphine Sulfate (morphine) 2 mg Q4H PRN IV PAIN LEVEL 7-10 Last administered on 11/29/16 07:37; Admin Dose 2 MG; Start 11/24/16 at 22:00 Enoxaparin Sodium (Lovenox) 30 mg DAILY SC Last administered on 11/29/16 09: 30; Admin Dose 30 MG; Start 11/25/16 at 09:00 Miscellaneous Information (Pending Santyl Order For Wound Care) This patient noriega... PRN PRN XX WOUND CARE; Start 11/25/16 at 06:00 Baclofen (Lioresal) 5 mg TID GTB Last administered on 11/29/16 12:29; Admin Dose 5 MG; Start 11/25/16 at 09:00 Zolpidem Tartrate (Ambien) 5 mg HS PRN GTB INSOMNIA Last administered on 20:26; Admin Dose 5 MG; Start 11/25/16 at 21:00 Dantrolene Sodium (Dantrium) 100 mg TID GTB Last administered on 11/29/16 12: 29; Admin Dose 100 MG; Start 11/25/16 at 10:00 Famotidine (Pepcid) 20 mg Q12 PO Last administered on 11/29/16 09:29; Admin Dose 20 MG; Start 11/26/16 at 21:00 Citric Acid/ Sodium Citrate 30 ml 30 ml BID GTB Last administered on 09:29; Admin Dose 30 ML; Start 11/26/16 at 21:00 Sodium Bicarbonate 50 meq/Dextrose 1,050 ml @ 100 mls/hr [id number] IV Last administered on 11/29/16 12:29; Admin Dose 100 MLS/HR; Start 11/27/16 at 13: 30 Meropenem/Sodium Chloride 50 ml @ 200 mls/hr Q8 IVPB ; Start 11/29/16 at 14:00 Vancomycin HCl/ Sodium Chloride (Vancocin/NS) 150 ml @ 75 mls/hr Q12H IVPB ; Start 11/30/16 at 02:00 TIARA CISNEROS MD Nov 29, 2016 13:41
[2016-11-29] MEDS ORDERED: VANCOMYCIN 1.25 GM in SOD CHLORIDE 0.9% 250 ML IVPB ONE (14:00)
[2016-11-29] MEDS: MEROPENEM 500MG/50 ML (PMX) 50 ML IVPB SCH ×2 (14:02→21:37)
--- NOTE | 2016-11-29 16:12 | PN ---
Date/Time of Note Date/Time of Note DATE: 11/29/16 TIME: 16:03 Assessment/Plan VTE Prophylaxis VTE Prophylaxis Intervention: SCD's Lines/Catheters IV [facility] Saline Lock Assessment/Plan Chief Complaint/Hosp Course Patient was transferred to ICU last night due to desaturation. Patient is currently tachycardic, with leukocytosis. Assessment/Plan - Acute hypoxic respiratory failure, continue ventilatory suppor, breathing treatment, antibiotics for possible early pneumonia. Dr. Ames is following in pulmonology consultation. - Acute kidney injury, Dr. Barker will be following patient in nephrology consultation - Uremia -Recurrent urinary tract infection. Continue acute antibiotics per ID. Dr. Maciel is following in infection disease consultation. - Neurogenic bladder with suprapubic catheter. - Left renal nephrolithiasis, S/p lithotripsy and removal of a left ureteral JJ stent by Dr. Marquez 10/29. - Acute kidney injury on chronic kidney disease. - Status post right nephrectomy - Ventilator-dependent respiratory failure with tracheostomy. - Dysphagia with percutaneous endoscopic gastrostomy tube. - Multiple decubitus ulcers present on admission. - Cervical spine injury with paraplegia. - Bipolar disorder with psychosis. Further recommendations based on clinical course. Plan of care discussed with Dr. Barreto. Problems: Exam/Review of Systems Vital Signs Vitals Vital Signs Date Time Temp Pulse Resp B/P Pulse Ox O2 Delivery O2 Flow Rate FiO2 11/29/16 15:00 105 25 98/61 90 Mechanical Ventilator 11/29/16 12:00 98.9 11/29/16 08:00 60 Intake and Output 11/28/16 11/28/16 11/29/16 15:00 23:00 07:00 Intake Total 50 ml 980 ml 700 ml Output Total 1450 ml 600 ml Balance 50 ml -470 ml 100 ml Exam Constitutional: alert, oriented Neck: other (trach), supple Respiratory: normal air movement Cardiovascular: nl pulses, regular rate and rhythm Gastrointestinal: non-tender, other (GT), soft Extremities: normal pulses, contracted. Skin: other (wounds) Results Result Diagram: 11/29/1645 11/29/1645 Results 24 hrs Laboratory Tests Test 11/28/16 20:15 11/29/16 05:45 Lactic Acid Level 1.8 White Blood Count 24.7 #H Red Blood Count 3.90 L Hemoglobin 12.0 L Hematocrit 38.4 L Mean Corpuscular Volume 98.5 Mean Corpuscular Hemoglobin 30.8 Mean Corpuscular Hemoglobin Concent 31.3 L Red Cell Distribution Width 17.2 H Platelet Count 174 Mean Platelet Volume 10.7 H Neutrophils % 93.5 H Lymphocytes % 2.5 L Monocytes % 3.4 Eosinophils % 0.0 Basophils % 0.1 Nucleated Red Blood Cells % 0.0 Neutrophils # 23.1 H Lymphocytes # 0.6 L Monocytes # 0.8 Eosinophils # 0.0 Basophils # 0.0 Nucleated Red Blood Cells # 0.0 Sodium Level 152 H Potassium Level 4.5 Chloride Level 121 H Carbon Dioxide Level 22 Anion Gap 14 Blood Urea Nitrogen 49 H Creatinine 1.43 H Glucose Level 116 Calcium Level 9.0 Medications Medications Current Medications Ondansetron HCl (Zofran Inj) 4 mg Q6H PRN IV NAUSEA AND/OR VOMITING; Start at 22:00 Acetaminophen (Tylenol Tab) 650 mg Q6H PRN PO PAIN LEVEL 1-3 OR FEVER Last administered on 11/26/16 03:46; Admin Dose 650 MG; Start 11/24/16 at 22:00 Morphine Sulfate (morphine) 2 mg Q4H PRN IV PAIN LEVEL 7-10 Last administered on 11/29/16 07:37; Admin Dose 2 MG; Start 11/24/16 at 22:00 Enoxaparin Sodium (Lovenox) 30 mg DAILY SC Last administered on 11/29/16 09: 30; Admin Dose 30 MG; Start 11/25/16 at 09:00 [facility] This patient noriega... PRN PRN XX WOUND CARE; Start 11/25/16 at 06:00 Baclofen (Lioresal) 5 mg TID GTB Last administered on 11/29/16 12:29; Admin Dose 5 MG; Start 11/25/16 at 09:00 Zolpidem Tartrate (Ambien) 5 mg HS PRN GTB INSOMNIA Last administered on 20:26; Admin Dose 5 MG; Start 11/25/16 at 21:00 Dantrolene Sodium (Dantrium) 100 mg TID GTB Last administered on 11/29/16 12: 29; Admin Dose 100 MG; Start 11/25/16 at 10:00 Famotidine (Pepcid) 20 mg Q12 PO Last administered on 11/29/16 09:29; Admin Dose 20 MG; Start 11/26/16 at 21:00 Citric Acid/ Sodium Citrate 30 ml 30 ml BID GTB Last administered on 09:29; Admin Dose 30 ML; Start 11/26/16 at 21:00 Sodium Bicarbonate 50 meq/Dextrose 1,050 ml @ 100 mls/hr [id number] IV Last administered on 11/29/16 12:29; Admin Dose 100 MLS/HR; Start 11/27/16 at 13: 30 Meropenem/Sodium Chloride 50 ml @ 200 mls/hr Q8 IVPB Last administered on 14:02; Admin Dose 200 MLS/HR; Start 11/29/16 at 14:00 Vancomycin HCl/ Sodium Chloride (Vancocin/NS) 150 ml @ 75 mls/hr Q12H IVPB ; Start 11/30/16 at 02:00 AISSATOU DUNCAN Nov 29, 2016 16:12
--- NOTE | 2016-11-29 16:32 | RADRPT ---
PROCEDURE: XR Chest. CLINICAL INDICATION: Shortness of breath. TECHNIQUE: Single frontal view. COMPARISON: 11/28/2016. FINDINGS: The tracheostomy tube is in satisfactory position. There is right basilar atelectasis, unchanged. Th e lungs are otherwise clear. The heart size is normal. There is a small right pleural effusion. There is no pneumothorax. There is thoracic dextroscoliosis. IMPRESSION: 1. No change from 11/28/2016. RPTAT: QQ .Cain Castellanos MD, MD Date Time Electronically viewed and signed by .Cain Castellanos MD, MD on 11/29/2016 16:32 .R/
[2016-11-30] VITALS (36 sets, daily range): BP systolic 90–123; BP diastolic 52–101; PULSE 70–115; RESP 18–30
[2016-11-30] MEDS: SODIUM BICARBONATE (IV ADD) 50 MEQ in DEXTROSE 5% 1,000 ML IV SCH ×2 (00:32→13:56)
[2016-11-30] MEDS ORDERED: VANCOMYCIN 750 MG in SOD CHLORIDE 0.9% 150 ML IVPB SCH (02:00)
[2016-11-30] MEDS: MEROPENEM 500MG/50 ML (PMX) 50 ML IVPB SCH ×3 (06:04→22:50)
[2016-11-30] MEDS: BACLOFEN 10 MG TAB GTB SCH ×3 (09:00→20:58)
[2016-11-30] MEDS: FAMOTIDINE 20 MG TAB PO SCH ×2 (09:00→20:58)
[2016-11-30] MEDS: DANTROLENE 25 MG CAP GTB SCH ×3 (09:00→20:58)
[2016-11-30] MEDS: CITRIC ACID/NA CITRATE 30 ML CUP GTB SCH ×2 (09:00→21:11)
[2016-11-30] MEDS: ENOXAPARIN 30 MG/0.3 ML SYG SC SCH (09:22)
--- NOTE | 2016-11-30 13:29 | CONS ---
Date/Time of Note Date/Time of Note DATE: 11/30/16 TIME: 13:28 Consult Date/Type/Reason Admit Date/Time Nov 24, 2016 at 21:00 Initial Consult Date 11/25/16 Type of Consultation: ID Ordering Provider: JOSÉ ANTONIO MIRZA MD Objective Vital Signs Date Time Temp Pulse Resp B/P Pulse Ox O2 Delivery O2 Flow Rate FiO2 11/30/16 12:00 86 90/52 94 11/30/16 11:00 19 11/30/16 04:59 70 11/30/16 04:00 98.7 11/29/16 18:00 Mechanical Ventilator Intake and Output 11/29/16 11/29/16 11/30/16 15:00 23:00 07:00 Intake Total 850 ml 300 ml 100 ml Output Total 360 ml 600 ml Balance 850 ml -60 ml -500 ml Results/Medications Result Diagram: 11/30/16 0510 11/30/16 0510 Results 24 hrs Laboratory Tests Test 11/30/16 05:10 White Blood Count 13.1 #H Red Blood Count 3.50 L Hemoglobin 10.4 L Hematocrit 34.8 L Mean Corpuscular Volume 99.4 Mean Corpuscular Hemoglobin 29.7 Mean Corpuscular Hemoglobin Concent 29.9 L Red Cell Distribution Width 17.3 H Platelet Count 134 #L Mean Platelet Volume 11.1 H Neutrophils % 88.9 H Lymphocytes % 5.1 L Monocytes % 5.2 Eosinophils % 0.1 Basophils % 0.2 Nucleated Red Blood Cells % 0.0 Neutrophils # 11.6 H Lymphocytes # 0.7 L Monocytes # 0.7 Eosinophils # 0.0 Basophils # 0.0 Nucleated Red Blood Cells # 0.0 Sodium Level 151 H Potassium Level 4.1 Chloride Level 119 H Carbon Dioxide Level 21 Anion Gap 15 Blood Urea Nitrogen 49 H Creatinine 1.39 H Glucose Level 103 Calcium Level 8.9 Medications Current Medications Ondansetron HCl (Zofran Inj) 4 mg Q6H PRN IV NAUSEA AND/OR VOMITING; Start at 22:00 Acetaminophen (Tylenol Tab) 650 mg Q6H PRN PO PAIN LEVEL 1-3 OR FEVER Last administered on 11/26/16t 03:46; Admin Dose 650 MG; Start 11/24/16 at 22:00 Morphine Sulfate (morphine) 2 mg Q4H PRN IV PAIN LEVEL 7-10 Last administered on 11/29/16 18:21; Admin Dose 2 MG; Start 11/24/16 at 22:00 Enoxaparin Sodium (Lovenox) 30 mg DAILY SC Last administered on 11/30/16 09: 22; Admin Dose 30 MG; Start 11/25/16 at 09:00 Miscellaneous Information (Pending Santyl Order For Wound Care) This patient noriega... PRN PRN XX WOUND CARE; Start 11/25/16 at 06:00 Baclofen (Lioresal) 5 mg TID GTB Last administered on 11/30/16 09:00; Admin Dose 5 MG; Start 11/25/16 at 09:00 Zolpidem Tartrate (Ambien) 5 mg HS PRN GTB INSOMNIA Last administered on 20:26; Admin Dose 5 MG; Start 11/25/16 at 21:00 Dantrolene Sodium (Dantrium) 100 mg TID GTB Last administered on 11/30/16 09: 00; Admin Dose 100 MG; Start 11/25/16 at 10:00 Famotidine (Pepcid) 20 mg Q12 PO Last administered on 11/30/16 09:00; Admin Dose 20 MG; Start 11/26/16 at 21:00 Citric Acid/ Sodium Citrate 30 ml 30 ml BID GTB Last administered on 09:00; Admin Dose 30 ML; Start 11/26/16 at 21:00 Sodium Bicarbonate 50 meq/Dextrose 1,050 ml @ 100 mls/hr [id number] IV Last administered on 11/30/16 00:32; Admin Dose 100 MLS/HR; Start 11/27/16 at 13: 30 Meropenem/Sodium Chloride 50 ml @ 200 mls/hr Q8 IVPB Last administered on 06:04; Admin Dose 200 MLS/HR; Start 11/29/16 at 14:00 Vancomycin HCl/ Dextrose (Vancocin/D5W) 250 ml @ 83.333 mls/ hr Q48H IVPB ; Start 12/01/16 at 15:00 Assessment/Plan Chief Complaint/Hosp Course Lethargic, looks comfortable, no fevers Indwelling's: Trach PEG suprapubic catheter Urine cx + Enterobacter/Morganella Antimicrobials: Vanco, Merrem PHYSICAL EXAMINATION: GENERAL: Chronically ill-appearing, middle-aged, quadriplegic man, who is in no distress. HEENT: Head atraumatic, normocephalic. Sclerae anicteric. Buccal mucosa dry. NECK: Supple. Tracheostomy present. CHEST: Chest rise symmetrical. Breath sounds diminished to bases. HEART: S1, S2. ABDOMEN: Soft, bowel sounds present. EXTREMITIES: Without cyanosis, wasted, + contractures ASSESSMENT: 1. Acute on chronic respiratory failure ?aspiration 1. Recurrent UTI 2. Acute renal failure. 3. Quadriplegia 4. Neurogenic bladder 5. History of scabies 4. History of right nephrectomy. 5. Multiple chronic wounds PLAN: Clinically stable, wbc decreasing, pending blood cultures, continue present care, abx, vent per pulmonary, follow urology recommendations Discussed with RN Problems: REGINALDO CHERY NP Nov 30, 2016 13:29
--- NOTE | 2016-11-30 16:03 | PN ---
Date/Time of Note Date/Time of Note DATE: 11/30/16 TIME: 16:01 Assessment/Plan VTE Prophylaxis VTE Prophylaxis Intervention: SCD's Lines/Catheters IV [facility] Saline Lock Assessment/Plan Chief Complaint/Hosp Course Assessment/Plan - Acute hypoxic respiratory failure, continue ventilatory suppor, breathing treatment, antibiotics for possible early pneumonia. Dr. Ames is following in pulmonology consultation. -Acute on chronic encephalopathy - Acute kidney injury, Dr. Barker will be following patient in nephrology consultation - Uremia -Recurrent urinary tract infection. Continue acute antibiotics per ID. Dr. Maciel is following in infection disease consultation. - Neurogenic bladder with suprapubic catheter. - Left renal nephrolithiasis, S/p lithotripsy and removal of a left ureteral JJ stent by Dr. Marquez 10/29. - Acute kidney injury on chronic kidney disease. - Status post right nephrectomy - Ventilator-dependent respiratory failure with tracheostomy. - Dysphagia with percutaneous endoscopic gastrostomy tube. - Multiple decubitus ulcers present on admission. - Cervical spine injury with paraplegia. - Bipolar disorder with psychosis. Further recommendations based on clinical course. Plan of care discussed with Dr. Barreto. Problems: Exam/Review of Systems Vital Signs Vitals Vital Signs Date Time Temp Pulse Resp B/P Pulse Ox O2 Delivery O2 Flow Rate FiO2 11/30/16 14:00 108 18 91 11/30/16 13:00 116/76 11/30/16 04:59 70 11/30/16 04:00 98.7 11/29/16 18:00 Mechanical Ventilator Intake and Output 11/29/16 11/29/16 11/30/16 15:00 23:00 07:00 Intake Total 850 ml 300 ml 100 ml Output Total 360 ml 600 ml Balance 850 ml -60 ml -500 ml Exam Constitutional: alert, oriented Neck: other (trach), supple Respiratory: normal air movement Cardiovascular: nl pulses, regular rate and rhythm Gastrointestinal: non-tender, other (GT), soft Extremities: normal pulses, contracted. Skin: other (wounds) Results Result Diagram: 11/30/16 0510 11/30/16 0510 Results 24 hrs Laboratory Tests Test 11/30/16 05:10 White Blood Count 13.1 #H Red Blood Count 3.50 L Hemoglobin 10.4 L Hematocrit 34.8 L Mean Corpuscular Volume 99.4 Mean Corpuscular Hemoglobin 29.7 Mean Corpuscular Hemoglobin Concent 29.9 L Red Cell Distribution Width 17.3 H Platelet Count 134 #L Mean Platelet Volume 11.1 H Neutrophils % 88.9 H Lymphocytes % 5.1 L Monocytes % 5.2 Eosinophils % 0.1 Basophils % 0.2 Nucleated Red Blood Cells % 0.0 Neutrophils # 11.6 H Lymphocytes # 0.7 L Monocytes # 0.7 Eosinophils # 0.0 Basophils # 0.0 Nucleated Red Blood Cells # 0.0 Sodium Level 151 H Potassium Level 4.1 Chloride Level 119 H Carbon Dioxide Level 21 Anion Gap 15 Blood Urea Nitrogen 49 H Creatinine 1.39 H Glucose Level 103 Calcium Level 8.9 Medications Medications Current Medications Ondansetron HCl (Zofran Inj) 4 mg Q6H PRN IV NAUSEA AND/OR VOMITING; Start at 22:00 Acetaminophen (Tylenol Tab) 650 mg Q6H PRN PO PAIN LEVEL 1-3 OR FEVER Last administered on 11/26/16 03:46; Admin Dose 650 MG; Start 11/24/16 at 22:00 Morphine Sulfate (morphine) 2 mg Q4H PRN IV PAIN LEVEL 7-10 Last administered on 11/29/16 18:21; Admin Dose 2 MG; Start 11/24/16 at 22:00 Enoxaparin Sodium (Lovenox) 30 mg DAILY SC Last administered on 11/30/16 09: 22; Admin Dose 30 MG; Start 11/25/16 at 09:00 Miscellaneous Information (Pending Santyl Order For Wound Care) This patient noriega... PRN PRN XX WOUND CARE; Start 11/25/16 at 06:00 Baclofen (Lioresal) 5 mg TID GTB Last administered on 11/30/16 13:56; Admin Dose 5 MG; Start 11/25/16 at 09:00 Zolpidem Tartrate (Ambien) 5 mg HS PRN GTB INSOMNIA Last administered on 20:26; Admin Dose 5 MG; Start 11/25/16 at 21:00 Dantrolene Sodium (Dantrium) 100 mg TID GTB Last administered on 11/30/16 13: 55; Admin Dose 100 MG; Start 11/25/16 at 10:00 Famotidine (Pepcid) 20 mg Q12 PO Last administered on 11/30/16 09:00; Admin Dose 20 MG; Start 11/26/16 at 21:00 Citric Acid/ Sodium Citrate 30 ml 30 ml BID GTB Last administered on 09:00; Admin Dose 30 ML; Start 11/26/16 at 21:00 Sodium Bicarbonate 50 meq/Dextrose 1,050 ml @ 100 mls/hr [id number] IV Last administered on 11/30/16 13:56; Admin Dose 100 MLS/HR; Start 11/27/16 at 13: 30 Meropenem/Sodium Chloride 50 ml @ 200 mls/hr Q8 IVPB Last administered on 13:55; Admin Dose 200 MLS/HR; Start 11/29/16 at 14:00 Vancomycin HCl/ Dextrose (Vancocin/D5W) 250 ml @ 83.333 mls/ hr Q48H IVPB ; Start 12/01/16 at 15:00 AISSATOU DUNCAN Nov 30, 2016 16:03
--- NOTE | 2016-11-30 16:18 | CONS ---
Date/Time of Note Date/Time of Note DATE: 11/30/16 TIME: 16:16 Assessment/Plan Assessment/Plan Additional Assessment/Plan 1. Acute kidney injury secondary to severe prerenal azotemia and possible acute tubular necrosis. 2. Acute uremia with a BUN of 107, Cr 1.99 on admission 3. Acute hyperkalemia due to BELINDA , severe metabolic acidosis on bicarbonate drip 4. Possible UTI causing septic shock 5. 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 6. History of neurogenic bladder with urinary retention, status post suprapubic catheter. 7. History of previous recurrent urinary tract infections. 8. 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. 9. 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 10. Other medical history includes anxiety, depression, bipolar disorder, psychosis. 11. History of right nephrectomy with left renal nephrolithiasis and a left renal cyst measuring 5.3 cm in size. Plan: continue IVF D5W with sodium bicarbonate 100meQ at 100 cc/hr, BUN/Cr improving 49/1.43, Na still 151- expecting to improve in next 1-2 days bicitra for metabolic acidosis IV abx Meropenem and vancomycin, WBC Improving pt previosly had a full CKD work up, no need to repeat it will continue to follow up on patient Consultation Date/Type/Reason Admit Date/Time Nov 24, 2016 at 21:00 Initial Consult Date 11/25/16 Type of Consultation: NEPHROLOGY Referring Provider: JOSÉ ANTONIO MIRZA MD 24 HR Interval Summary Free Text/Dictation BP has been very labile, WBC improving, BUN/Cr improving but Na still 151, afebrile, Exam/Review of Systems Vital Signs Vitals Vital Signs Date Time Temp Pulse Resp B/P Pulse Ox O2 Delivery O2 Flow Rate FiO2 11/30/16 14:00 108 18 91 11/30/16 13:00 116/76 11/30/16 04:59 70 11/30/16 04:00 98.7 11/29/16 18:00 Mechanical Ventilator Intake and Output 11/29/16 11/29/16 11/30/16 15:00 23:00 07:00 Intake Total 850 ml 300 ml 100 ml Output Total 360 ml 600 ml Balance 850 ml -60 ml -500 ml Exam Constitutional: alert, non-verbal ENMT: nl external ears & nose, other (+ tracheostom on ventilator ) Neck: non-tender, supple Respiratory: congested cough, crackles/rales, diminished breath sounds Cardiovascular: nl pulses, regular rate and rhythm Gastrointestinal: non-tender, soft, Results Result Diagram: 11/30/16 0510 11/30/16 0510 Results 24 hrs Laboratory Tests Test 11/30/16 05:10 White Blood Count 13.1 #H Red Blood Count 3.50 L Hemoglobin 10.4 L Hematocrit 34.8 L Mean Corpuscular Volume 99.4 Mean Corpuscular Hemoglobin 29.7 Mean Corpuscular Hemoglobin Concent 29.9 L Red Cell Distribution Width 17.3 H Platelet Count 134 #L Mean Platelet Volume 11.1 H Neutrophils % 88.9 H Lymphocytes % 5.1 L Monocytes % 5.2 Eosinophils % 0.1 Basophils % 0.2 Nucleated Red Blood Cells % 0.0 Neutrophils # 11.6 H Lymphocytes # 0.7 L Monocytes # 0.7 Eosinophils # 0.0 Basophils # 0.0 Nucleated Red Blood Cells # 0.0 Sodium Level 151 H Potassium Level 4.1 Chloride Level 119 H Carbon Dioxide Level 21 Anion Gap 15 Blood Urea Nitrogen 49 H Creatinine 1.39 H Glucose Level 103 Calcium Level 8.9 Medications Medications Current Medications Ondansetron HCl (Zofran Inj) 4 mg Q6H PRN IV NAUSEA AND/OR VOMITING; Start at 22:00 Acetaminophen (Tylenol Tab) 650 mg Q6H PRN PO PAIN LEVEL 1-3 OR FEVER Last administered on 11/26/16 03:46; Admin Dose 650 MG; Start 11/24/16 at 22:00 Morphine Sulfate (morphine) 2 mg Q4H PRN IV PAIN LEVEL 7-10 Last administered on 11/29/16 18:21; Admin Dose 2 MG; Start 11/24/16 at 22:00 Enoxaparin Sodium (Lovenox) 30 mg DAILY SC Last administered on 11/30/16 09: 22; Admin Dose 30 MG; Start 11/25/16 at 09:00 Miscellaneous Information (Pending [facility]yl Order For Wound Care) This patient noriega... PRN PRN XX WOUND CARE; Start 11/25/16 at 06:00 Baclofen (Lioresal) 5 mg TID GTB Last administered on 11/30/16 13:56; Admin Dose 5 MG; Start 11/25/16 at 09:00 Zolpidem Tartrate (Ambien) 5 mg HS PRN GTB INSOMNIA Last administered on 20:26; Admin Dose 5 MG; Start 11/25/16 at 21:00 Dantrolene Sodium (Dantrium) 100 mg TID GTB Last administered on 11/30/16 13: 55; Admin Dose 100 MG; Start 11/25/16 at 10:00 Famotidine (Pepcid) 20 mg Q12 PO Last administered on 11/30/16 09:00; Admin Dose 20 MG; Start 11/26/16 at 21:00 Citric Acid/ Sodium Citrate 30 ml 30 ml BID GTB Last administered on 09:00; Admin Dose 30 ML; Start 11/26/16 at 21:00 Sodium Bicarbonate 50 meq/Dextrose 1,050 ml @ 100 mls/hr [id number] IV Last administered on 11/30/16 13:56; Admin Dose 100 MLS/HR; Start 11/27/16 at 13: 30 Meropenem/Sodium Chloride 50 ml @ 200 mls/hr Q8 IVPB Last administered on 13:55; Admin Dose 200 MLS/HR; Start 11/29/16 at 14:00 Vancomycin HCl/ Dextrose (Vancocin/D5W) 250 ml @ 83.333 mls/ hr Q48H IVPB ; Start 12/01/16 at 15:00 TIARA CISNEROS MD Nov 30, 2016 16:18
[2016-11-30] MEDS ORDERED: SODIUM CITRATE PO SCH (21:00)
[2016-11-30] MEDS ORDERED: CITRIC ACID PO SCH (21:00)
[2016-11-30] MEDS: IPRATROPIUM (HFA) 12.9 GM INHALER INH SCH (21:19)
[2016-11-30] MEDS: LEVALBUTEROL (HFA) 15 GM INHALER INH SCH (21:20)
[2016-12-01] VITALS (35 sets, daily range): BP systolic 80–119; BP diastolic 51–82; PULSE 70–111; RESP 16–31
[2016-12-01] MEDS: SODIUM BICARBONATE (IV ADD) 50 MEQ in DEXTROSE 5% 1,000 ML IV SCH (01:46)
[2016-12-01] MEDS: IPRATROPIUM (HFA) 12.9 GM INHALER INH SCH ×4 (02:00→20:25)
[2016-12-01] MEDS: LEVALBUTEROL (HFA) 15 GM INHALER INH SCH ×4 (02:00→20:25)
[2016-12-01] MEDS: morphine 2 MG INJ IV PRN ×5 (05:03→21:22)
[2016-12-01] MEDS: MEROPENEM 500MG/50 ML (PMX) 50 ML IVPB SCH ×3 (05:45→21:24)
[2016-12-01] MEDS: ACETAMINOPHEN 325 MG TAB PO PRN ×2 (06:35→20:08)
--- NOTE | 2016-12-01 08:35 | RADRPT ---
PROCEDURE: CT Brain without contrast. CLINICAL INDICATION: Altered level of consciousness. TECHNIQUE: A multiplanar CT of the brain was performed on a CT scanner utilizing axial imaging fro m the skull base through the vertex without IV contrast. The CTDIvol is 40.44 mGy and the DLP is 83 5.79 mGycm. One or more of the following dose reduction techniques were utilized: Automated exposu re control, adjustment of the mA and/or kV according to patient size, use of iterative reconstructio n technique. COMPARISON: None FINDINGS: No evidence of intracranial hemorrhage or abnormal extra-axial fluid collection. Encephalomalacia of the right middle frontal gyrus with surrounding gliosis and ex vacuo dilatation of the frontal horn of the right lateral ventricle compatible with remote ischemic infarction. Patchy hypo attenuation throughout the deep white matter suggestive of sequelae of chronic microvasc ular ischemic disease. Given the patient's age, diffusion weighted MRI is recommended to exclude the possibility of superimposed more acute ischemic infarction. No edema, mass effect, or shift. Mild prominence of the ventricles and subarachnoid spaces compatible with cerebral volume loss. The basal cisterns, posterior fossa contents, brainstem, craniocervical junction, orbits, pituitary axis, paranasal sinuses, mastoid air cells, and calvarium are unremarkable. IMPRESSION: 1. No intracranial hemorrhage or acute intracranial abnormality. 2. 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 Chronic microvascular ischemic changes. Early ischemic injury may be occult to CT imaging and diffusion weighted MRI may be considered as clinica lly warranted. 3. Mild generalized cerebral volume loss. RPTAT:AAJJ Physician Mena Date Time Electronically viewed and signed by Physician Mena on 11/30/2016 23:04 KEN/
--- NOTE | 2016-12-01 08:42 | RADRPT ---
PROCEDURE: XR Chest. CLINICAL INDICATION: Shortness of breath. TECHNIQUE: Single frontal view. COMPARISON: 11/29/2016. FINDINGS: The tracheostomy tube is in satisfactory position. There is right basilar atelectasis, slightly impr jolly on the right and worse on the left. The lungs are otherwise clear. The heart size is normal. There is a small right pleural effusion. There is no pneumothorax. There is thoracic dextroscoliosis. IMPRESSION: 1. Slightly improved appearance of the right lung base and worse appearance of the left lung base. 2. Small right pleural effusion. 3. Tracheostomy tube. RPTAT: QQ .Cain Castellanos MD, MD Date Time Electronically viewed and signed by .Cain Castellanos MD, MD on 12/01/2016 08:06 .R/
[2016-12-01] MEDS: DANTROLENE 25 MG CAP GTB SCH ×3 (09:50→20:08)
[2016-12-01] MEDS: BACLOFEN 10 MG TAB GTB SCH ×3 (09:51→20:08)
[2016-12-01] MEDS: FAMOTIDINE 20 MG TAB PO SCH ×2 (09:54→20:08)
[2016-12-01] MEDS: ENOXAPARIN 30 MG/0.3 ML SYG SC SCH (10:23)
--- NOTE | 2016-12-01 12:01 | PN ---
Date/Time of Note Date/Time of Note DATE: 12/01/16 TIME: 11:56 Assessment/Plan VTE Prophylaxis VTE Prophylaxis Intervention: other Lines/Catheters IV Catheter Type (from [facility]): Peripheral IV Urinary Cath still in place: Yes (Supra-pubic) Reason Cath still needed: urinary retention Assessment/Plan Assessment/Plan - Acute hypoxic respiratory failure, continue ventilatory support, breathing treatment, antibiotics for possible early pneumonia. Dr. Ames is following in pulmonology consultation. - Acute on chronic encephalopathy - Acute kidney injury, Dr. Barker will be following patient in nephrology consultation - Uremia -Recurrent urinary tract infection. Continue acute antibiotics per ID. Dr. Maciel is following in infection disease consultation. - Neurogenic bladder with suprapubic catheter. - Left renal nephrolithiasis, S/p lithotripsy and removal of a left ureteral JJ stent by Dr. Marquez 10/29. - Acute kidney injury on chronic kidney disease. - Status post right nephrectomy - Ventilator-dependent respiratory failure with tracheostomy. - Dysphagia with percutaneous endoscopic gastrostomy tube. - Multiple decubitus ulcers present on admission. - Cervical spine injury with paraplegia. - Bipolar disorder with psychosis. Further recommendations based on clinical course. Total critical care spent 30 mins.. Plan of care discussed with Dr. Barreto. Subjective 24 Hr Interval Summary Free Text/Dictation remains on trach to vent, afebrile, alert, talking, denies any complaints, dw staff Constitutional: requiring IVF, requiring O2 Respiratory: no complaints Cardiovascular: no complaints Gastrointestinal: no complaints Genitourinary: no complaints Musculoskeletal: no complaints Skin: no complaints Exam/Review of Systems Vital Signs Vitals Vital Signs Date Time Temp Pulse Resp B/P Pulse Ox O2 Delivery O2 Flow Rate FiO2 12/01/16 11:30 81 25 99 60 12/01/16 06:00 91/60 Mechanical Ventilator 12/01/16 04:00 98.5 Intake and Output 11/30/16 11/30/16 12/01/16 15:00 23:00 07:00 Intake Total 200 ml 780 ml 1090 ml Output Total 900 ml 550 ml Balance 200 ml -120 ml 540 ml Exam Constitutional: alert Respiratory: diminished breath sounds Cardiovascular: nl pulses, other (s1s2, SR hR 80) Gastrointestinal: non-tender, other (GT intact), soft Extremities: normal pulses Neurological: confused Results Result Diagram: 12/01/16 0545 12/01/16 0545 Results 24 hrs Laboratory Tests Test 11/30/16 16:29 12/01/16 05:00 12/01/16 05:45 Bedside Glucose 101 Blood Gas Specimen Source Blood arterial Arterial Blood Date Drawn 12/01/2016 6:02:21 AM Arterial Blood pH (Temp corrected) 7.519 H Arterial Blood pCO2 (Temp correct) 28.0 L Arterial Blood pO2 (Temp corrected) 62.0 L Arterial Blood HCO3 22.3 Arterial Blood Base Excess 0.8 Julito Test ACCEPTAB Arterial Blood Gas Puncture Site Right Radial Arterial Blood Carboxyhemoglobin 0.2 Arterial Blood Methemoglobin 1.0 Blood Gas A-a O2 Differential 263.0 H Oxyhemoglobin Percent 91.2 L Total Hemoglobin 7.8 L Blood Gas Temperature 37.0 Blood Gas Respiration Rate 20.0 Blood Gas Actual Respiration Rate 21 Blood Gas Modality VENT - AC FiO2 50.0 Blood Gas Tidal Volume 600.0 Blood Gas Mean Airway Pressure 12 Blood Gas Low PEEP Setting 5.0 Blood Gas Inspiratory Pressure 41.0 Blood Gas Notified Whom SRAAH JESSICA Blood Gas Notified Time 12/01/2016 6:12:48 AM White Blood Count 12.6 H Red Blood Count 3.54 L Hemoglobin 10.6 L Hematocrit 34.5 L Mean Corpuscular Volume 97.5 Mean Corpuscular Hemoglobin 29.9 Mean Corpuscular Hemoglobin Concent 30.7 L Red Cell Distribution Width 16.6 H Platelet Count 156 Mean Platelet Volume 11.0 H Neutrophils % 85.5 H Lymphocytes % 6.4 L Monocytes % 5.9 Eosinophils % 1.6 Basophils % 0.1 Nucleated Red Blood Cells % 0.0 Neutrophils # 10.8 H Lymphocytes # 0.8 Monocytes # 0.8 Eosinophils # 0.2 Basophils # 0.0 Nucleated Red Blood Cells # 0.0 Sodium Level 152 H Potassium Level 3.7 Chloride Level 112 H Carbon Dioxide Level 27 Anion Gap 17 H Blood Urea Nitrogen 50 H Creatinine 1.45 H Glucose Level 107 Calcium Level 8.5 Medications Medications Current Medications Ondansetron HCl (Zofran Inj) 4 mg Q6H PRN IV NAUSEA AND/OR VOMITING; Start at 22:00 Acetaminophen (Tylenol Tab) 650 mg Q6H PRN PO PAIN LEVEL 1-3 OR FEVER Last administered on 12/01/16 06:35; Admin Dose 650 MG; Start 11/24/16 at 22:00 Morphine Sulfate (morphine) 2 mg Q4H PRN IV PAIN LEVEL 7-10 Last administered on 12/01/16 09:50; Admin Dose 2 MG; Start 11/24/16 at 22:00 Enoxaparin Sodium (Lovenox) 30 mg DAILY SC Last administered on 12/01/16 10: 23; Admin Dose 30 MG; Start 11/25/16 at 09:00 Miscellaneous Information (Pending Santyl Order For Wound Care) This patient noriega... PRN PRN XX WOUND CARE; Start 11/25/16 at 06:00 Baclofen (Lioresal) 5 mg TID GTB Last administered on 12/01/16 09:51; Admin Dose 5 MG; Start 11/25/16 at 09:00 Zolpidem Tartrate (Ambien) 5 mg HS PRN GTB INSOMNIA Last administered on 20:26; Admin Dose 5 MG; Start 11/25/16 at 21:00 Dantrolene Sodium (Dantrium) 100 mg TID GTB Last administered on 12/01/16 09: 50; Admin Dose 100 MG; Start 11/25/16 at 10:00 Famotidine 20 mg 20 mg Q12 PO Last administered on 12/01/16 09:54; Admin Dose 20 MG; Start 11/26/16 at 21:00 Meropenem/Sodium Chloride 50 ml @ 200 mls/hr Q8 IVPB Last administered on 05:45; Admin Dose 200 MLS/HR; Start 11/29/16 at 14:00 Vancomycin HCl/ Dextrose (Vancocin/D5W) 250 ml @ 83.333 mls/ hr Q48H IVPB ; Start 12/01/16 at 15:00 Citric Acid/ Sodium Citrate 30 ml 30 ml BID PO ; Start 12/01/16 at 09:00 Potassium Chloride/Dextrose/ Sod Cl (D5-1/2ns + KCl 10 Meq) 1,000 ml @ 100 mls/ hr Q10H IV ; Start 12/01/16 at 12:30 NAE VELAZCO Dec 01, 2016 12:01
[2016-12-01] MEDS: D5W-0.45 NACL + KCL 10 MEQ 1,000 ML IV SCH (12:53)
--- NOTE | 2016-12-01 13:34 | PN ---
DATE: 12/01/2016 PULMONARY FOLLOWUP NOTE SUBJECTIVE: The patient's general condition is same. He was transferred to ICU. He is on ventilat or support. His breathing appears comfortable. He is awake, responsive. PHYSICAL EXAMINATION able: VITAL SIGNS: Stable. Temperature 98.5, pulse rate is 80, respirations 20, blood pressure 115/82. He at present. Pulse oximetry shows 98% saturation with 50% inhaled oxygen concentration with ventilator support. NECK: Tracheal secretions are clear. No bleeding seen. HEART: Regular sinus rhythm. CHEST: Breath sounds are diminished in both the lower lung tierney with a few intermittent rales and rhonchi. ABDOMEN: Soft, not distended, tolerating tube feedings. Bowel sounds are present. EXTREMITIES: Show no edema. He is paraplegic. LABORATORY TESTS: Show WBC 12,600, hemoglobin 10.6, hematocrit 34.5, platelets 156,000. The chemis try panel shows gradual improvement, BUN is 50, creatinine 1.45, sodium 152, potassium 3.7, bicarbon ate of 27, glucose 107, calcium 8.5. Arterial blood gases show pH 7.51, pCO2 28, pO2 62 on 50% oxyg en with a rate of 20. The chest x-ray shows slight improvement in the right lung base, the left lung base appears slightly worse. This could all be due to shifting pleural effusion and atelectatic changes in the lung base s, otherwise no significantly gross changes are seen. IMPRESSION: 1. Chronic ventilator-dependent respiratory failure. 2. Acute renal failure on chronic kidney disease. 3. Urinary tract infection. 4. Chronic anemia. 5. Nephrolithiasis, left kidney status post lithotripsy. 6. Status post tracheostomy. 7. Status post gastrostomy. 8. History of spinal cord injury, resulting in paraplegia in the past. 9. History of psychiatric illness. RECOMMENDATIONS: 1. Continue long-term ventilator support, ventilator rate can be slightly reduced to allow his pO2 to increase slightly to normalize pH. 2. Continue bronchodilator inhalation therapy to maintain pulmonary hygiene and clear the secretion s. 3. Continue antibiotics as per the infectious disease information technology consultant. 4. Continue DVT prophylaxis. Dictated By: HUMBERTO PEREZ MD, SR/QUE Conf#: [id number] DID#: [id number]
--- NOTE | 2016-12-01 14:53 | PN ---
DATE: 12/01/2016 SUBJECTIVE: No acute changes overnight. The patient is more awake today. He is in no distress, no fevers. VITAL SIGNS: Temperature 98.5, pulse 80, respirations 20, blood pressure 91/60, saturation 96% on 6 0%. WBC 12.6, H and H 10.6 and 34.5, platelets 156, neutrophils 85.5, no bands, BUN 50, creatinine 1.45. MICROBIOLOGY: Urine culture on admission grew Enterobacter cloacae and Morganella morganii. Blood cultures remain negative. DIAGNOSTICS: CT of the brain yesterday revealed no acute abnormalities. Chest x-ray this morning r evealed slightly improved appearance of the right lung base and worse appearance of the left lung ba se. INDWELLINGS: Trach, peripheral IV and suprapubic catheter. ANTIMICROBIALS: 1. Vancomycin. 2. Merrem. PHYSICAL EXAMINATION: GENERAL: Chronically ill-appearing, quadriplegic man who is awake, in no distress. HEENT: Head atraumatic, normocephalic. Sclerae anicteric. Buccal mucosa dry. NECK: Supple. CHEST: Rise symmetrical. Breath sounds diminished to bases. HEART: S1, S2. ABDOMEN: Soft, bowel tones present. EXTREMITIES: Wasted, contractured. ASSESSMENT: 1. Resolving sepsis. 2. Resolving encephalopathy. 3. Healthcare-associated pneumonia. 4. Urinary tract infection. 5. Quadriplegia. 6. History of right nephrectomy. 7. History of scabies. PLAN: The patient remains stable. White blood cell count tracing down. Chest x-ray shows improvem ent. Continue present care and antibiotics. Dictated By: REGINALDO CHERY MAMMAL KEEPER for ANTONELLA ARGUETA/QUE Conf#: [id number] DID#: [id number]
--- NOTE | 2016-12-01 14:53 | PN ---
DATE: 12/01/2016 SUBJECTIVE: No acute changes overnight. The patient is more awake today. He is in no distress, no fevers. VITAL SIGNS: Temperature 98.5, pulse 80, respirations 20, blood pressure 91/60, saturation 96% on 6 0%. WBC 12.6, H and H 10.6 and 34.5, platelets 156, neutrophils 85.5, no bands, BUN 50, creatinine 1.45. MICROBIOLOGY: Urine culture on admission grew Enterobacter cloacae and Morganella morganii. Blood cultures remain negative. DIAGNOSTICS: CT of the brain yesterday revealed no acute abnormalities. Chest x-ray this morning r evealed slightly improved appearance of the right lung base and worse appearance of the left lung ba se. INDWELLINGS: Trach, peripheral IV and suprapubic catheter. ANTIMICROBIALS: 1. Vancomycin. 2. Merrem. PHYSICAL EXAMINATION: GENERAL: Chronically ill-appearing, quadriplegic man who is awake, in no distress. HEENT: Head atraumatic, normocephalic. Sclerae anicteric. Buccal mucosa dry. NECK: Supple. CHEST: Rise symmetrical. Breath sounds diminished to bases. HEART: S1, S2. ABDOMEN: Soft, bowel tones present. EXTREMITIES: Wasted, contractured. ASSESSMENT: 1. Resolving sepsis. 2. Resolving encephalopathy. 3. Healthcare-associated pneumonia. 4. Urinary tract infection. 5. Quadriplegia. 6. History of right nephrectomy. 7. History of scabies. PLAN: The patient remains stable. White blood cell count tracing down. Chest x-ray shows improvem ent. Continue present care and antibiotics. Dictated By: REGINALDO CHERY HEMSTITCHING MACHINE OPERATOR for [employer]/QUE Conf#: [id number] DID#: [id number]
--- NOTE | 2016-12-01 14:53 | PN ---
DATE: 12/01/2016 SUBJECTIVE: No acute changes overnight. The patient is more awake today. He is in no distress, no fevers. VITAL SIGNS: Temperature 98.5, pulse 80, respirations 20, blood pressure 91/60, saturation 96% on 6 0%. WBC 12.6, H and H 10.6 and 34.5, platelets 156, neutrophils 85.5, no bands, BUN 50, creatinine 1.45. MICROBIOLOGY: Urine culture on admission grew Enterobacter cloacae and Morganella morganii. Blood cultures remain negative. DIAGNOSTICS: CT of the brain yesterday revealed no acute abnormalities. Chest x-ray this morning r evealed slightly improved appearance of the right lung base and worse appearance of the left lung ba se. INDWELLINGS: Trach, peripheral IV and suprapubic catheter. ANTIMICROBIALS: 1. Vancomycin. 2. Merrem. PHYSICAL EXAMINATION: GENERAL: Chronically ill-appearing, quadriplegic man who is awake, in no distress. HEENT: Head atraumatic, normocephalic. Sclerae anicteric. Buccal mucosa dry. NECK: Supple. CHEST: Rise symmetrical. Breath sounds diminished to bases. HEART: S1, S2. ABDOMEN: Soft, bowel tones present. EXTREMITIES: Wasted, contractured. ASSESSMENT: 1. Resolving sepsis. 2. Resolving encephalopathy. 3. Healthcare-associated pneumonia. 4. Urinary tract infection. 5. Quadriplegia. 6. History of right nephrectomy. 7. History of scabies. PLAN: The patient remains stable. White blood cell count tracing down. Chest x-ray shows improvem ent. Continue present care and antibiotics. Dictated By: REGINALDO CHERY SPECIAL EDUCATION DIRECTOR for [employer]/QUE Conf#: [id number] DID#: [id number]
[2016-12-01] MEDS: CITRIC ACID/SODIUM CITRATE 15 ML CUP PO SCH ×2 (14:59→20:07)
--- NOTE | 2016-12-01 16:42 | CONS ---
Date/Time of Note Date/Time of Note DATE: 12/01/16 TIME: 16:40 Assessment/Plan Assessment/Plan Additional Assessment/Plan 1. Acute kidney injury secondary to severe prerenal azotemia and possible acute tubular necrosis. 2. Acute uremia with a BUN of 107, Cr 1.99 on admission 3. Acute hyperkalemia due to BELINDA , severe metabolic acidosis on bicarbonate drip 4. Possible UTI causing septic shock 5. 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 6. History of neurogenic bladder with urinary retention, status post suprapubic catheter. 7. History of previous recurrent urinary tract infections. 8. 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 9. 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 10. Other medical history includes anxiety, depression, bipolar disorder, psychosis. 11. History of right nephrectomy with left renal nephrolithiasis and a left renal cyst measuring 5.3 cm in size. Plan: Na 152, BUN/Cr 50/1.45, D/c Bicarbonate drip, start D51/2NS with KCL 10meQ at 100 cc/hr CT brain negative, bicitra for metabolic acidosis IV abx Meropenem and vancomycin, WBC Improving pt previosly had a full CKD work up, no need to repeat it will continue to follow up on patient Consultation Date/Type/Reason Admit Date/Time Nov 24, 2016 at 21:00 Initial Consult Date 11/25/16 Type of Consultation: NEPHROLOGY Referring Provider: JOSÉ ANTONIO MIRZA MD Exam/Review of Systems Vital Signs Vitals Vital Signs Date Time Temp Pulse Resp B/P Pulse Ox O2 Delivery O2 Flow Rate FiO2 12/01/16 16:00 72 12/01/16 15:56 24 94 60 12/01/16 13:00 87/51 Mechanical Ventilator 12/01/16 12:00 99.0 Intake and Output 11/30/16 11/30/16 12/01/16 15:00 23:00 07:00 Intake Total 200 ml 780 ml 1130 ml Output Total 900 ml 550 ml Balance 200 ml -120 ml 580 ml Exam Constitutional: alert, non-verbal ENMT: nl external ears & nose, other (+ tracheostom on ventilator ) Neck: non-tender, supple Respiratory: congested cough, crackles/rales, diminished breath sounds Cardiovascular: nl pulses, regular rate and rhythm Gastrointestinal: non-tender, soft, Results Result Diagram: 12/01/16 0545 12/01/16 0545 Results 24 hrs Laboratory Tests Test 12/01/16 05:00 12/01/16 05:45 Blood Gas Specimen Source Blood arterial Arterial Blood Date Drawn 12/01/2016 6:02:21 AM Arterial Blood pH (Temp corrected) 7.519 H Arterial Blood pCO2 (Temp correct) 28.0 L Arterial Blood pO2 (Temp corrected) 62.0 L Arterial Blood HCO3 22.3 Arterial Blood Base Excess 0.8 Julito Test ACCEPTAB Arterial Blood Gas Puncture Site Right Radial Arterial Blood Carboxyhemoglobin 0.2 Arterial Blood Methemoglobin 1.0 Blood Gas A-a O2 Differential 263.0 H Oxyhemoglobin Percent 91.2 L Total Hemoglobin 7.8 L Blood Gas Temperature 37.0 Blood Gas Respiration Rate 20.0 Blood Gas Actual Respiration Rate 21 Blood Gas Modality VENT - AC FiO2 50.0 Blood Gas Tidal Volume 600.0 Blood Gas Mean Airway Pressure 12 Blood Gas Low PEEP Setting 5.0 Blood Gas Inspiratory Pressure 41.0 Blood Gas Notified Adiel SMITH RCP Blood Gas Notified Time 12/01/2016 6:12:48 AM White Blood Count 12.6 H Red Blood Count 3.54 L Hemoglobin 10.6 L Hematocrit 34.5 L Mean Corpuscular Volume 97.5 Mean Corpuscular Hemoglobin 29.9 Mean Corpuscular Hemoglobin Concent 30.7 L Red Cell Distribution Width 16.6 H Platelet Count 156 Mean Platelet Volume 11.0 H Neutrophils % 85.5 H Lymphocytes % 6.4 L Monocytes % 5.9 Eosinophils % 1.6 Basophils % 0.1 Nucleated Red Blood Cells % 0.0 Neutrophils # 10.8 H Lymphocytes # 0.8 Monocytes # 0.8 Eosinophils # 0.2 Basophils # 0.0 Nucleated Red Blood Cells # 0.0 Sodium Level 152 H Potassium Level 3.7 Chloride Level 112 H Carbon Dioxide Level 27 Anion Gap 17 H Blood Urea Nitrogen 50 H Creatinine 1.45 H Glucose Level 107 Calcium Level 8.5 Medications Medications Current Medications Ondansetron HCl (Zofran Inj) 4 mg Q6H PRN IV NAUSEA AND/OR VOMITING; Start at 22:00 Acetaminophen (Tylenol Tab) 650 mg Q6H PRN PO PAIN LEVEL 1-3 OR FEVER Last administered on 12/01/16 06:35; Admin Dose 650 MG; Start 11/24/16 at 22:00 Morphine Sulfate (morphine) 2 mg Q4H PRN IV PAIN LEVEL 7-10 Last administered on 12/01/16 12:54; Admin Dose 2 MG; Start 11/24/16 at 22:00 Enoxaparin Sodium (Lovenox) 30 mg DAILY SC Last administered on 12/01/16 10: 23; Admin Dose 30 MG; Start 11/25/16 at 09:00 Miscellaneous Information (Pending Santyl Order For Wound Care) This patient noriega... PRN PRN XX WOUND CARE; Start 11/25/16 at 06:00 Baclofen (Lioresal) 5 mg TID GTB Last administered on 12/01/16 12:54; Admin Dose 5 MG; Start 11/25/16 at 09:00 Zolpidem Tartrate (Ambien) 5 mg HS PRN GTB INSOMNIA Last administered on 20:26; Admin Dose 5 MG; Start 11/25/16 at 21:00 Dantrolene Sodium (Dantrium) 100 mg TID GTB Last administered on 12/01/16 12: 53; Admin Dose 100 MG; Start 11/25/16 at 10:00 Famotidine 20 mg 20 mg Q12 PO Last administered on 12/01/16 09:54; Admin Dose 20 MG; Start 11/26/16 at 21:00 Meropenem/Sodium Chloride 50 ml @ 200 mls/hr Q8 IVPB Last administered on 14:59; Admin Dose 200 MLS/HR; Start 11/29/16 at 14:00 Vancomycin HCl/ Dextrose (Vancocin/D5W) 250 ml @ 83.333 mls/ hr Q48H IVPB ; Start 12/01/16 at 15:00 Citric Acid/ Sodium Citrate 30 ml 30 ml BID PO Last administered on 12/01/16 14:59; Admin Dose 30 ML; Start 12/01/16 at 09:00 Potassium Chloride/Dextrose/ Sod Cl (D5-1/2ns + KCl 10 Meq) 1,000 ml @ 100 mls/ hr Q10H IV Last administered on 12/01/16 12:53; Admin Dose 100 MLS/HR; Start 12/01/16 at 12:30 TIARA CISNEROS MD Dec 01, 2016 16:42
[2016-12-01] MEDS: VANCOMYCIN 1.25 GM in DEXTROSE 5% 250 ML IVPB SCH (16:48)
[2016-12-02] VITALS (36 sets, daily range): BP systolic 79–120; BP diastolic 44–73; PULSE 74–119; RESP 16–25
[2016-12-02] MEDS: IPRATROPIUM (HFA) 12.9 GM INHALER INH SCH ×4 (01:45→19:00)
[2016-12-02] MEDS: LEVALBUTEROL (HFA) 15 GM INHALER INH SCH ×4 (01:45→19:00)
[2016-12-02] MEDS: morphine 2 MG INJ IV PRN ×6 (02:07→23:35)
[2016-12-02] MEDS: D5W-0.45 NACL + KCL 10 MEQ 1,000 ML IV SCH ×3 (02:07→14:21)
[2016-12-02] MEDS: ACETAMINOPHEN 325 MG TAB PO PRN (04:17)
[2016-12-02] MEDS: MEROPENEM 500MG/50 ML (PMX) 50 ML IVPB SCH ×3 (06:16→21:58)
--- NOTE | 2016-12-02 08:49 | RADRPT ---
PROCEDURE: XR Chest 1 View. CLINICAL INDICATION: Shortness of breath. TECHNIQUE: AP view of the chest was obtained. COMPARISON: Yesterday FINDINGS: The cardiomediastinal silhouette is within normal limits. Tracheostomy tube is stable and appears in grossly appropriate location. Central pulmonary vascular congestion and interstitial prominence in both lungs appears stable. Patchy bilateral lower lung infiltrates, combined small pleural effusions are stable. IV in the soft tissues over the right axilla is stable. The osseous structures are unch anged. IMPRESSION: Stable central pulmonary vascular congestion and mild interstitial prominence in both lungs. Stable patchy bilateral lower lung infiltrates and small pleural effusions. RPTAT: AA .Chao Beaulieu MD, Date Time Electronically viewed and signed by .Chao Beaulieu MD, MD on 12/02/2016 08:49 .P/
[2016-12-02] MEDS: DANTROLENE 25 MG CAP GTB SCH ×3 (08:53→22:01)
[2016-12-02] MEDS: FAMOTIDINE 20 MG TAB PO SCH ×2 (08:53→21:57)
[2016-12-02] MEDS: BACLOFEN 10 MG TAB GTB SCH ×3 (08:53→21:57)
[2016-12-02] MEDS: CITRIC ACID/SODIUM CITRATE 15 ML CUP PO SCH ×2 (08:53→21:58)
[2016-12-02] MEDS: ENOXAPARIN 30 MG/0.3 ML SYG SC SCH (09:07)
[2016-12-02] MEDS ORDERED: COLLAGENASE 30 GM TUBE TOP PRN (10:00)
[2016-12-02] MEDS: ACETAMINOPHEN 650MG/20.3ML CUP GTB PRN (10:10)
--- NOTE | 2016-12-02 11:46 | PN ---
DATE: 12/02/2016 PULMONARY FOLLOWUP SUBJECTIVE: The patient is in ICU on ventilator support through tracheostomy. He is chronically ve ntilator dependent. He is awake, responsive and communicative. PHYSICAL EXAMINATION: VITAL SIGNS: Show temperature spikes up to 101 earlier at 8:00 this morning. Subsequently, it incr eased even further going up to 101.9. His blood pressure is stable at 105/68, pulse rate is 102 saeed wing sinus tachycardia, respiratory rate is 21, pulse oximetry shows 100% oxygen saturation. Howeve r, he is on relatively high FIO2 of 60%. NECK: Tracheal secretions are thick, mucopurulent, no bleeding is seen. CHEST: Breath sounds are diminished in the lower lung tierney with scattered rales and rhonchi on froylan th sides. HEART: Sinus tachycardia. ABDOMEN: Soft, not distended. He is tolerating gastrostomy tube feedings. Bowel sounds are presen t. No vomiting has been reported. EXTREMITIES: Show no edema. He is paraplegic. LABORATORY DATA: Showed WBC count surprisingly down to 9300, hemoglobin 10, hematocrit 34.3, platel ets are decreased to 118,000. No bandemia seen. The chemistry panel shows glucose is 112, sodium 1 47, potassium 4.2, BUN 52, creatinine 1.48. BUN and creatinine are almost the same as before. Sodi um also has improved from 152 yesterday. The liver function tests show bilirubin normal, liver enzy mes are normal except for elevated alkaline phosphatase, albumin is low at 2.5. The arterial blood gases show pH 7.49, pCO2 33, pO2 63 on 50% oxygen with PEEP of 5 and rate of 16. His own spontaneou s breathing rate is 22. The chest x-ray taken today shows patchy bilateral lower lung infiltrates which could also represent atelectatic changes. In addition, small pleural effusions are also possible. Nevertheless, these pleural effusions are too small for tapping and patient will not cooperate and high risk of complica tions as he is on positive pressure ventilator. IMPRESSION: 1. Possible sepsis. 2. Chronic ventilator-dependent respiratory failure. 3. Rule out developing pneumonia. 4. Acute renal failure on chronic kidney disease. 5. Urinary tract infection. 6. Chronic anemia. 7. Nephrolithiasis status post lithotripsy, left kidney. 8. Status post tracheostomy. 9. Status post gastrostomy. 10. History of spinal cord injury, resulting in paraplegia in the past. 11. History of psychiatric illness. RECOMMENDATIONS: 1. Continue long-term ventilator support. 2. Continue bronchodilator inhalation therapy to maintain pulmonary hygiene and clear the secretion s. 3. Continue antibiotics as per the infectious disease regional sales consultant. 4. Continue deep venous thrombosis prophylaxis. 5. Continue G-tube feedings. Dictated By: HUMBERTO PEREZ MD SR/QUE Conf#: [id number] DID#: [id number]
[2016-12-02] MEDS ORDERED: NACL 3% FOR INHALATION 15 ML NEBU NEB ONE (12:00)
--- NOTE | 2016-12-02 12:29 | PN ---
Date/Time of Note Date/Time of Note DATE: 12/02/16 TIME: 12:21 Assessment/Plan VTE Prophylaxis VTE Prophylaxis Intervention: SCD's Lines/Catheters IV Catheter Type (from [facility]): Peripheral IV Urinary Cath still in place: Yes (Supra-pubic) Reason Cath still needed: urinary retention Assessment/Plan Chief Complaint/Hosp Course Patient spiked fever, will obtain blood, urine, and sputum culture. Continues to have copious amount of secretions from trach. Patient is awake alert, with neuro status at his baseline. Assessment/Plan - Acute hypoxic respiratory failure, continue ventilatory support, breathing treatment, antibiotics for possible early pneumonia. Dr. Ames is following in pulmonology consultation. -Acute on chronic encephalopathy, CT of brain is negative for acute stroke. - Acute kidney injury, Dr. Barker will be following patient in nephrology consultation - Uremia -Recurrent urinary tract infection. Continue acute antibiotics per ID. Dr. Maciel is following in infection disease consultation. - Neurogenic bladder with suprapubic catheter. - Left renal nephrolithiasis, S/p lithotripsy and removal of a left ureteral JJ stent by Dr. Marquez 10/29. - Acute kidney injury on chronic kidney disease. - Status post right nephrectomy - Ventilator-dependent respiratory failure with tracheostomy. - Dysphagia with percutaneous endoscopic gastrostomy tube. - Multiple decubitus ulcers present on admission. - Cervical spine injury with paraplegia. - Bipolar disorder with psychosis. Further recommendations based on clinical course. Plan of care discussed with Dr. Barreto. Problems: Exam/Review of Systems Vital Signs Vitals Vital Signs Date Time Temp Pulse Resp B/P Pulse Ox O2 Delivery O2 Flow Rate FiO2 12/02/16 11:30 90 16 100 60 12/02/16 10:00 101.9 105/68 Mechanical Ventilator Intake and Output 12/01/16 12/01/16 12/02/16 15:00 23:00 07:00 Intake Total 1250 ml 1452.466 ml 980 ml Output Total 600 ml 800 ml Balance 1250 ml 852.466 ml 180 ml Exam Constitutional: alert, oriented Neck: other (trach), supple Respiratory: normal air movement Cardiovascular: nl pulses Gastrointestinal: non-tender, other (GT), soft Extremities: normal pulses, contracted. Skin: other (wounds) Results Result Diagram: 12/02/16 0455 12/02/16 045 Results 24 hrs Laboratory Tests Test 12/02/16 04:55 12/02/16 05:00 White Blood Count 9.3 # Red Blood Count 3.40 L Hemoglobin 10.0 L Hematocrit 34.3 L Mean Corpuscular Volume 100.9 Mean Corpuscular Hemoglobin 29.4 Mean Corpuscular Hemoglobin Concent 29.2 L Red Cell Distribution Width 16.4 H Platelet Count 118 #L Mean Platelet Volume 11.0 H Neutrophils % 82.0 H Lymphocytes % 6.9 L Monocytes % 8.0 Eosinophils % 2.4 Basophils % 0.2 Nucleated Red Blood Cells % 0.0 Neutrophils # 7.6 H Lymphocytes # 0.6 L Monocytes # 0.7 Eosinophils # 0.2 Basophils # 0.0 Nucleated Red Blood Cells # 0.0 Sodium Level 147 H Potassium Level 4.2 Chloride Level 112 H Carbon Dioxide Level 28 Anion Gap 11 Blood Urea Nitrogen 52 H Creatinine 1.48 H Glucose Level 112 Calcium Level 8.2 L Total Bilirubin 0.0 L Direct Bilirubin 0.00 Indirect Bilirubin 0.0 Aspartate Amino Transf (AST/SGOT) 17 Alanine Aminotransferase (ALT/SGPT) 29 Alkaline Phosphatase 159 H Total Protein 6.1 Albumin 2.5 L Globulin 3.60 H Albumin/Globulin Ratio 0.69 Blood Gas Specimen Source Blood arterial Arterial Blood Date Drawn 12/02/2016 6:20:23 AM Arterial Blood pH (Temp corrected) 7.499 H Arterial Blood pCO2 (Temp correct) 33.0 L Arterial Blood pO2 (Temp corrected) 63.4 L Arterial Blood HCO3 25.1 Arterial Blood Base Excess 2.1 Arterial Blood Oxygen Saturation 93.2 L Julito Test ACCEPTAB Arterial Blood Gas Puncture Site Right Radial Arterial Blood Carboxyhemoglobin 0.3 Arterial Blood Methemoglobin 0.5 Blood Gas A-a O2 Differential 256.0 H Oxyhemoglobin Percent 92.5 L Total Hemoglobin 9.1 L Blood Gas Temperature 37.0 Blood Gas Respiration Rate 16.0 Blood Gas Actual Respiration Rate 22 Blood Gas Modality VENT - AC FiO2 50.0 Blood Gas Tidal Volume 600.0 Blood Gas Low PEEP Setting 5.0 Blood Gas Notified Whom JLD Blood Gas Notified Time 12/02/2016 6:43:18 AM Medications Medications Current Medications Ondansetron HCl (Zofran Inj) 4 mg Q6H PRN IV NAUSEA AND/OR VOMITING; Start at 22:00 Morphine Sulfate (morphine) 2 mg Q4H PRN IV PAIN LEVEL 7-10 Last administered on 12/02/16 10:10; Admin Dose 2 MG; Start 11/24/16 at 22:00 Enoxaparin Sodium (Lovenox) 30 mg DAILY SC Last administered on 12/02/16 09: 07; Admin Dose 30 MG; Start 11/25/16 at 09:00 Miscellaneous Information (Pending Santyl Order For Wound Care) This patient noriega... PRN PRN XX WOUND CARE; Start 11/25/16 at 06:00 Baclofen (Lioresal) 5 mg TID GTB Last administered on 12/02/16 08:53; Admin Dose 5 MG; Start 11/25/16 at 09:00 Zolpidem Tartrate (Ambien) 5 mg HS PRN GTB INSOMNIA Last administered on 20:26; Admin Dose 5 MG; Start 11/25/16 at 21:00 Dantrolene Sodium (Dantrium) 100 mg TID GTB Last administered on 12/02/16 08: 53; Admin Dose 100 MG; Start 11/25/16 at 10:00 Famotidine 20 mg 20 mg Q12 PO Last administered on 12/02/16 08:53; Admin Dose 20 MG; Start 11/26/16 at 21:00 Meropenem/Sodium Chloride 50 ml @ 200 mls/hr Q8 IVPB Last administered on 06:16; Admin Dose 200 MLS/HR; Start 11/29/16 at 14:00 Vancomycin HCl/ Dextrose (Vancocin/D5W) 250 ml @ 83.333 mls/ hr Q48H IVPB Last administered on 12/01/16 16:48; Admin Dose 83.333 MLS/HR; Start at 15:00 Citric Acid/ Sodium Citrate 30 ml 30 ml BID PO Last administered on 12/02/16 08:53; Admin Dose 30 ML; Start 12/01/16 at 09:00 Potassium Chloride/Dextrose/ Sod Cl (D5-1/2ns + KCl 10 Meq) 1,000 ml @ 100 mls/ hr Q10H IV Last administered on 12/02/16 03:07; Admin Dose 100 MLS/HR; Start 12/01/16 at 12:30 Acetaminophen (Tylenol Liquid) 650 mg Q6H PRN GTB PAIN 1-04/15 OR ELEVATED TEMP Last administered on 12/02/16t 10:10; Admin Dose 650 MG; Start 12/02/16 at 09: 30 Collagenase (Santyl) 1 applic DAILY TOP ; Start 12/02/16 at 11:00 Collagenase (Santyl) 1 applic PRN PRN TOP WOUND CARE; Start 12/02/16 at 10:00 Miscellaneous Information (*Rx Drug Level Order Reminder*) VANCO TROUGH @ 1, 400 ON ... ONCE ONCE XX ; Start 12/03/16 at 14:00; Stop 12/03/16 at 14:01 AISSATOU DUNCAN Dec 02, 2016 12:28
--- NOTE | 2016-12-02 12:39 | PN ---
DATE: 12/02/2016 SUBJECTIVE: The patient had been spiking fevers with a T-max of 101.9. He is awake, alert, denies pain, discomfort and looks comfortable. VITAL SIGNS: Temperature 101.9, pulse 106, respirations 20, blood pressure 105/68, saturation 100 o n 60%. LABORATORY DATA: WBC 9.3, H and H 10 and 34.3, platelets 118, neutrophils 82. BUN 52, creatinine 1 .48. MICROBIOLOGY: Urine culture on admission grew Enterobacter cloacae and Morganella morganii. Blood cultures since November 29 negative. DIAGNOSTICS: Chest x-ray this morning revealed stable patchy bilateral lower lung infiltrates and s mall pleural effusions. ANTIMICROBIALS: The patient remains on: 1. Vancomycin. 2. Merrem. INDWELLINGS: Trach, suprapubic catheter. PHYSICAL EXAMINATION: GENERAL: This is a chronically ill-appearing quadriplegic man who is awake, in no distress. HEENT: Head atraumatic, normocephalic. Sclerae anicteric. Buccal mucosa dry. NECK: Supple. Tracheostomy present. CHEST: Rise symmetrical. Breath sounds diminished to bases. HEART: S1, S2. ABDOMEN: Soft. Bowel tones present. EXTREMITIES: Wasted, contractured. ASSESSMENT: 1. Sepsis with ongoing fevers, patient is clinically improving. 2. Healthcare-associated pneumonia. 3. Recurrent urinary tract infection. 4. Neurogenic bladder with chronic suprapubic catheter. 5. Quadriplegia. 6. History of right nephrectomy. 7. History of scabies. PLAN: The patient remains hemodynamically stable. Cultures were sent. He is on broad-spectrum ant ibiotics which we will continue. Follow urology, pulmonary recommendations. Dictated By: REGINALDO CHERY ELEVATOR ERECTOR HELPER for [employer] ARGUETA/QUE Conf#: [id number] DID#: [id number]
--- NOTE | 2016-12-02 12:39 | PN ---
DATE: 12/02/2016 SUBJECTIVE: The patient had been spiking fevers with a T-max of 101.9. He is awake, alert, denies pain, discomfort and looks comfortable. VITAL SIGNS: Temperature 101.9, pulse 106, respirations 20, blood pressure 105/68, saturation 100 o n 60%. LABORATORY DATA: WBC 9.3, H and H 10 and 34.3, platelets 118, neutrophils 82. BUN 52, creatinine 1 .48. MICROBIOLOGY: Urine culture on admission grew Enterobacter cloacae and Morganella morganii. Blood cultures since November 29 negative. DIAGNOSTICS: Chest x-ray this morning revealed stable patchy bilateral lower lung infiltrates and s mall pleural effusions. ANTIMICROBIALS: The patient remains on: 1. Vancomycin. 2. Merrem. INDWELLINGS: Trach, suprapubic catheter. PHYSICAL EXAMINATION: GENERAL: This is a chronically ill-appearing quadriplegic man who is awake, in no distress. HEENT: Head atraumatic, normocephalic. Sclerae anicteric. Buccal mucosa dry. NECK: Supple. Tracheostomy present. CHEST: Rise symmetrical. Breath sounds diminished to bases. HEART: S1, S2. ABDOMEN: Soft. Bowel tones present. EXTREMITIES: Wasted, contractured. ASSESSMENT: 1. Sepsis with ongoing fevers, patient is clinically improving. 2. Healthcare-associated pneumonia. 3. Recurrent urinary tract infection. 4. Neurogenic bladder with chronic suprapubic catheter. 5. Quadriplegia. 6. History of right nephrectomy. 7. History of scabies. PLAN: The patient remains hemodynamically stable. Cultures were sent. He is on broad-spectrum ant ibiotics which we will continue. Follow urology, pulmonary recommendations. Dictated By: REGINALDO CHERY TRANSACTION PROCESSOR for [employer] ARGUETA/QUE Conf#: [id number] DID#: [id number]
--- NOTE | 2016-12-02 12:39 | PN ---
DATE: 12/02/2016 SUBJECTIVE: The patient had been spiking fevers with a T-max of 101.9. He is awake, alert, denies pain, discomfort and looks comfortable. VITAL SIGNS: Temperature 101.9, pulse 106, respirations 20, blood pressure 105/68, saturation 100 o n 60%. LABORATORY DATA: WBC 9.3, H and H 10 and 34.3, platelets 118, neutrophils 82. BUN 52, creatinine 1 .48. MICROBIOLOGY: Urine culture on admission grew Enterobacter cloacae and Morganella morganii. Blood cultures since November 29 negative. DIAGNOSTICS: Chest x-ray this morning revealed stable patchy bilateral lower lung infiltrates and s mall pleural effusions. ANTIMICROBIALS: The patient remains on: 1. Vancomycin. 2. Merrem. INDWELLINGS: Trach, suprapubic catheter. PHYSICAL EXAMINATION: GENERAL: This is a chronically ill-appearing quadriplegic man who is awake, in no distress. HEENT: Head atraumatic, normocephalic. Sclerae anicteric. Buccal mucosa dry. NECK: Supple. Tracheostomy present. CHEST: Rise symmetrical. Breath sounds diminished to bases. HEART: S1, S2. ABDOMEN: Soft. Bowel tones present. EXTREMITIES: Wasted, contractured. ASSESSMENT: 1. Sepsis with ongoing fevers, patient is clinically improving. 2. Healthcare-associated pneumonia. 3. Recurrent urinary tract infection. 4. Neurogenic bladder with chronic suprapubic catheter. 5. Quadriplegia. 6. History of right nephrectomy. 7. History of scabies. PLAN: The patient remains hemodynamically stable. Cultures were sent. He is on broad-spectrum ant ibiotics which we will continue. Follow urology, pulmonary recommendations. Dictated By: REGINALDO CHERY DOOR TO DOOR LEAD GENERATION for [employer]A ARGUETA/QUE Conf#: [id number] DID#: [id number]
--- NOTE | 2016-12-02 14:08 | CONS ---
Date/Time of Note Date/Time of Note DATE: 12/02/16 TIME: 14:06 Assessment/Plan Assessment/Plan Additional Assessment/Plan 1. Acute kidney injury secondary to severe prerenal azotemia and possible acute tubular necrosis. 2. Acute uremia with a BUN of 107, Cr 1.99 on admission 3. Acute hyperkalemia due to BELINDA , severe metabolic acidosis on bicarbonate drip 4. Possible UTI causing septic shock 5. 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 6. History of neurogenic bladder with urinary retention, status post suprapubic catheter. 7. History of previous recurrent urinary tract infections. 8. 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 9. 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 10. Other medical history includes anxiety, depression, bipolar disorder, psychosis. 11. History of right nephrectomy with left renal nephrolithiasis and a left renal cyst measuring 5.3 cm in size. Plan: Na 147, BUN/Cr 52/1.48, s/p Bicarbonate drip, continue D51/2NS with KCL 10meQ at 100 cc/hr CT brain negative, bicitra for metabolic acidosis IV abx Meropenem and vancomycin, WBC Improving pt previosly had a full CKD work up, no need to repeat it will continue to follow up on patient Consultation Date/Type/Reason Admit Date/Time Nov 24, 2016 at 21:00 Initial Consult Date 11/25/16 Type of Consultation: NEPHROLOGY Referring Provider: JOSÉ ANTONIO MIRZA MD 24 HR Interval Summary Free Text/Dictation tachycardic with HR upto 120s Exam/Review of Systems Vital Signs Vitals Vital Signs Date Time Temp Pulse Resp B/P Pulse Ox O2 Delivery O2 Flow Rate FiO2 12/02/16 13:12 91 17 99 60 12/02/16 12:00 98.6 82/50 Mechanical Ventilator Intake and Output 12/01/16 12/01/16 12/02/16 15:00 23:00 07:00 Intake Total 1250 ml 1452.466 ml 980 ml Output Total 600 ml 800 ml Balance 1250 ml 852.466 ml 180 ml Exam Constitutional: alert, non-verbal ENMT: nl external ears & nose, other (+ tracheostom on ventilator ) Neck: non-tender, supple Respiratory: congested cough, crackles/rales, diminished breath sounds Cardiovascular: nl pulses, regular rate and rhythm Gastrointestinal: non-tender, soft, Results Result Diagram: 12/02/16 0455 12/02/16 0455 Results 24 hrs Laboratory Tests Test 12/02/16 04:55 12/02/16 05:00 12/02/16 11:24 White Blood Count 9.3 # Red Blood Count 3.40 L Hemoglobin 10.0 L Hematocrit 34.3 L Mean Corpuscular Volume 100.9 Mean Corpuscular Hemoglobin 29.4 Mean Corpuscular Hemoglobin Concent 29.2 L Red Cell Distribution Width 16.4 H Platelet Count 118 #L Mean Platelet Volume 11.0 H Neutrophils % 82.0 H Lymphocytes % 6.9 L Monocytes % 8.0 Eosinophils % 2.4 Basophils % 0.2 Nucleated Red Blood Cells % 0.0 Neutrophils # 7.6 H Lymphocytes # 0.6 L Monocytes # 0.7 Eosinophils # 0.2 Basophils # 0.0 Nucleated Red Blood Cells # 0.0 Sodium Level 147 H Potassium Level 4.2 Chloride Level 112 H Carbon Dioxide Level 28 Anion Gap 11 Blood Urea Nitrogen 52 H Creatinine 1.48 H Glucose Level 112 Calcium Level 8.2 L Total Bilirubin 0.0 L Direct Bilirubin 0.00 Indirect Bilirubin 0.0 Aspartate Amino Transf (AST/SGOT) 17 Alanine Aminotransferase (ALT/SGPT) 29 Alkaline Phosphatase 159 H Total Protein 6.1 Albumin 2.5 L Globulin 3.60 H Albumin/Globulin Ratio 0.69 Blood Gas Specimen Source Blood arterial Arterial Blood Date Drawn 12/02/2016 6:20:23 AM Arterial Blood pH (Temp corrected) 7.499 H Arterial Blood pCO2 (Temp correct) 33.0 L Arterial Blood pO2 (Temp corrected) 63.4 L Arterial Blood HCO3 25.1 Arterial Blood Base Excess 2.1 Arterial Blood Oxygen Saturation 93.2 L Julito Test ACCEPTAB Arterial Blood Gas Puncture Site Right Radial Arterial Blood Carboxyhemoglobin 0.3 Arterial Blood Methemoglobin 0.5 Blood Gas A-a O2 Differential 256.0 H Oxyhemoglobin Percent 92.5 L Total Hemoglobin 9.1 L Blood Gas Temperature 37.0 Blood Gas Respiration Rate 16.0 Blood Gas Actual Respiration Rate 22 Blood Gas Modality VENT - AC FiO2 50.0 Blood Gas Tidal Volume 600.0 Blood Gas Low PEEP Setting 5.0 Blood Gas Notified Whom JLD Blood Gas Notified Time 12/02/2016 6:43:18 AM Lactic Acid Level 1.5 Medications Medications Current Medications Ondansetron HCl (Zofran Inj) 4 mg Q6H PRN IV NAUSEA AND/OR VOMITING; Start at 22:00 Morphine Sulfate (morphine) 2 mg Q4H PRN IV PAIN LEVEL 7-10 Last administered on 12/02/16 10:10; Admin Dose 2 MG; Start 11/24/16 at 22:00 Enoxaparin Sodium (Lovenox) 30 mg DAILY SC Last administered on 12/02/16 09: 07; Admin Dose 30 MG; Start 11/25/16 at 09:00 [facility]isc[facility] This patient noriega... PRN PRN XX WOUND CARE; Start 11/25/16 at 06:00 Baclofen (Lioresal) 5 mg TID GTB Last administered on 12/02/16 08:53; Admin Dose 5 MG; Start 11/25/16 at 09:00 Zolpidem Tartrate (Ambien) 5 mg HS PRN GTB INSOMNIA Last administered on 20:26; Admin Dose 5 MG; Start 11/25/16 at 21:00 Dantrolene Sodium (Dantrium) 100 mg TID GTB Last administered on 12/02/16 08: 53; Admin Dose 100 MG; Start 11/25/16 at 10:00 Famotidine 20 mg 20 mg Q12 PO Last administered on 12/02/16 08:53; Admin Dose 20 MG; Start 11/26/16 at 21:00 Meropenem/Sodium Chloride 50 ml @ 200 mls/hr Q8 IVPB Last administered on 06:16; Admin Dose 200 MLS/HR; Start 11/29/16 at 14:00 Vancomycin HCl/ Dextrose (Vancocin/D5W) 250 ml @ 83.333 mls/ hr Q48H IVPB Last administered on 12/01/16 16:48; Admin Dose 83.333 MLS/HR; Start at 15:00 Citric Acid/ Sodium Citrate 30 ml 30 ml BID PO Last administered on 12/02/16 08:53; Admin Dose 30 ML; Start 12/01/16 at 09:00 Potassium Chloride/Dextrose/ Sod Cl (D5-1/2ns + KCl 10 Meq) 1,000 ml @ 100 mls/ hr Q10H IV Last administered on 12/02/16 03:07; Admin Dose 100 MLS/HR; Start 12/01/16 at 12:30 Acetaminophen (Tylenol Liquid) 650 mg Q6H PRN GTB PAIN 1-310 OR ELEVATED TEMP Last administered on 12/02/16 10:10; Admin Dose 650 MG; Start 12/02/16 at 09: 30 Collagenase (Santyl) 1 applic DAILY TOP ; Start 12/02/16 at 11:00 Collagenase (Santyl) 1 applic PRN PRN TOP WOUND CARE; Start 12/02/16 at 10:00 Miscellaneous Information (*Rx Drug Level Order Reminder*) VANCO TROUGH @ 1, 400 ON ... ONCE ONCE XX ; Start 12/03/16 at 14:00; Stop 12/03/16 at 14:01 TIARA CISNEROS MD Dec 02, 2016 14:08
[2016-12-02] MEDS: COLLAGENASE 30 GM TUBE TOP SCH (14:43)
[2016-12-03] VITALS (83 sets, daily range): BP systolic 65–136; BP diastolic 40–84; PULSE 60–111; RESP 10–26
[2016-12-03] MEDS: IPRATROPIUM (HFA) 12.9 GM INHALER INH SCH ×4 (01:00→19:00)
[2016-12-03] MEDS: LEVALBUTEROL (HFA) 15 GM INHALER INH SCH ×4 (01:00→19:00)
[2016-12-03] MEDS: D5W-0.45 NACL + KCL 10 MEQ 1,000 ML IV SCH (01:40)
[2016-12-03] MEDS: morphine 2 MG INJ IV PRN ×2 (04:00→08:45)
[2016-12-03] MEDS: MEROPENEM 500MG/50 ML (PMX) 50 ML IVPB SCH ×3 (05:09→22:18)
[2016-12-03] MEDS: ACETAMINOPHEN 650MG/20.3ML CUP GTB PRN (05:09)
[2016-12-03] MEDS ORDERED: NORepinephrine 8MG/250 ML (PMX 250 ML IV SCH (05:30)
[2016-12-03] MEDS ORDERED: SOD CHLORIDE 0.9% 500 ML IV ONE (05:30)
--- NOTE | 2016-12-03 08:27 | RADRPT ---
PROCEDURE: XR Chest. CLINICAL INDICATION: Shortness of breath. TECHNIQUE: Single frontal view. COMPARISON: 12/02/2016. FINDINGS: The tracheostomy tube is in satisfactory position. There is interstitial disease bilaterally with lo wer lung zone predominance consistent with pulmonary edema. The lungs are otherwise clear. The heart size is normal. There are small bilateral pleural effusions. There is no pneumothorax. IMPRESSION: 1. Tracheostomy tube. 2. Pulmonary edema. 3. Small bilateral pleural effusions. RPTAT: QQ .Cain Castellanos MD, MD Date Time Electronically viewed and signed by .Cain Castellanos MD, MD on 12/03/2016 08:27 .R/
[2016-12-03] MEDS ORDERED: LIDOCAINE 1% (MPF) 5 ML VIAL SC ONE (08:30)
[2016-12-03] MEDS: FAMOTIDINE 20 MG TAB PO SCH ×2 (08:44→20:33)
[2016-12-03] MEDS: CITRIC ACID/SODIUM CITRATE 15 ML CUP PO SCH ×2 (08:44→20:32)
[2016-12-03] MEDS: DANTROLENE 25 MG CAP GTB SCH ×3 (08:44→20:32)
[2016-12-03] MEDS: COLLAGENASE 30 GM TUBE TOP SCH (08:45)
[2016-12-03] MEDS: BACLOFEN 10 MG TAB GTB SCH ×3 (08:45→20:33)
[2016-12-03] MEDS: ENOXAPARIN 30 MG/0.3 ML SYG SC SCH (08:49)
--- NOTE | 2016-12-03 09:04 | PN ---
Date/Time of Note Date/Time of Note DATE: 12/03/16 TIME: 09:03 Assessment/Plan VTE Prophylaxis VTE Prophylaxis Intervention: other Lines/Catheters IV Catheter Type (from [facility] Peripheral IV Urinary Cath still in place: Yes Reason Cath still needed: skin wounds contaminated by urine Assessment/Plan Chief Complaint/Hosp Course - Acute hypoxic respiratory failure, continue ventilatory support, breathing treatment, antibiotics for possible early pneumonia. Dr. Ames is following in pulmonology consultation. -Acute on chronic encephalopathy, CT of brain is negative for acute stroke. - Acute kidney injury, Dr. Barker will be following patient in nephrology consultation - Uremia -Recurrent urinary tract infection. Continue acute antibiotics per ID. Dr. Maciel is following in infection disease consultation. - Neurogenic bladder with suprapubic catheter. - Left renal nephrolithiasis, S/p lithotripsy and removal of a left ureteral JJ stent by Dr. Marquez 10/29. - Acute kidney injury on chronic kidney disease. - Status post right nephrectomy - Ventilator-dependent respiratory failure with tracheostomy. - Dysphagia with percutaneous endoscopic gastrostomy tube. - Multiple decubitus ulcers present on admission. - Cervical spine injury with paraplegia. - Bipolar disorder with psychosis. Problems: Subjective 24 Hr Interval Summary Free Text/Dictation Patient is doing well, trach in place. Blood pressure has been dropping so the patient is now on vasopressor Exam/Review of Systems Vital Signs Vitals Vital Signs Date Time Temp Pulse Resp B/P Pulse Ox O2 Delivery O2 Flow Rate FiO2 12/03/16 07:45 98.1 81 22 89/59 97 Mechanical Ventilator 12/03/16 05:40 60 Intake and Output 12/02/16 12/02/16 12/03/16 15:00 23:00 07:00 Intake Total 1280 ml 1270 ml 1730 ml Output Total 950 ml 350 ml Balance 1280 ml 320 ml 1380 ml Exam Constitutional: well developed Head: atraumatic, normocephalic Neck: supple Respiratory: diminished breath sounds Cardiovascular: regular rate and rhythm Gastrointestinal: non-tender, soft Extremities: normal pulses Results Result Diagram: 12/03/16 0601 12/03/16 0601 Results 24 hrs Laboratory Tests Test 12/02/16 11:24 12/03/16 06:01 Lactic Acid Level 1.5 White Blood Count 9.0 Red Blood Count 2.97 L Hemoglobin 9.1 L Hematocrit 30.0 L Mean Corpuscular Volume 101.0 Mean Corpuscular Hemoglobin 30.6 Mean Corpuscular Hemoglobin Concent 30.3 L Red Cell Distribution Width 16.2 H Platelet Count 91 #L Mean Platelet Volume 11.6 H Neutrophils % 80.1 H Lymphocytes % 6.3 L Monocytes % 8.6 Eosinophils % 4.3 Basophils % 0.1 Nucleated Red Blood Cells % 0.0 Neutrophils # 7.2 Lymphocytes # 0.6 L Monocytes # 0.8 Eosinophils # 0.4 Basophils # 0.0 Nucleated Red Blood Cells # 0.0 Sodium Level 146 H Potassium Level 4.9 Chloride Level 112 H Carbon Dioxide Level 26 Anion Gap 13 Blood Urea Nitrogen 50 H Creatinine 1.71 H Glucose Level 110 Calcium Level 7.8 L Medications Medications Current Medications Ondansetron HCl (Zofran Inj) 4 mg Q6H PRN IV NAUSEA AND/OR VOMITING; Start at 22:00 Morphine Sulfate (morphine) 2 mg Q4H PRN IV PAIN LEVEL 7-10 Last administered on 12/03/16 08:45; Admin Dose 2 MG; Start 11/24/16 at 22:00 Enoxaparin Sodium (Lovenox) 30 mg DAILY SC Last administered on 12/03/16 08: 49; Admin Dose 30 MG; Start 11/25/16 at 09:00 Miscellaneous Information [facility] This patient noriega... PRN PRN XX WOUND CARE; Start 11/25/16 at 06:00 Baclofen (Lioresal) 5 mg TID GTB Last administered on 12/03/16 08:45; Admin Dose 5 MG; Start 11/25/16 at 09:00 Zolpidem Tartrate (Ambien) 5 mg HS PRN GTB INSOMNIA Last administered on 20:26; Admin Dose 5 MG; Start 11/25/16 at 21:00 Dantrolene Sodium (Dantrium) 100 mg TID GTB Last administered on 12/03/16 08: 44; Admin Dose 100 MG; Start 11/25/16 at 10:00 Famotidine 20 mg 20 mg Q12 PO Last administered on 12/03/16 08:44; Admin Dose 20 MG; Start 11/26/16 at 21:00 Meropenem/Sodium Chloride 50 ml @ 200 mls/hr Q8 IVPB Last administered on 05:09; Admin Dose 200 MLS/HR; Start 11/29/16 at 14:00 Vancomycin HCl/ Dextrose (Vancocin/D5W) 250 ml @ 83.333 mls/ hr Q48H IVPB Last administered on 12/01/16 16:48; Admin Dose 83.333 MLS/HR; Start at 15:00 Citric Acid/ Sodium Citrate 30 ml 30 ml BID PO Last administered on 12/03/16 08:44; Admin Dose 30 ML; Start 12/01/16 at 09:00 Potassium Chloride/Dextrose/ Sod Cl (D5-1/2ns + KCl 10 Meq) 1,000 ml @ 100 mls/ hr Q10H IV Last administered on 12/03/16 01:40; Admin Dose 100 MLS/HR; Start 12/01/16 at 12:30 Acetaminophen (Tylenol Liquid) 650 mg Q6H PRN GTB PAIN 1-3/10 OR ELEVATED TEMP Last administered on 12/03/16 05:09; Admin Dose 650 MG; Start 12/02/16 at 09: 30 Collagenase (Santyl) 1 applic DAILY TOP Last administered on 12/03/16 08:45; Admin Dose 1 APPLIC; Start 12/02/16 at 11:00 Collagenase (Santyl) 1 applic PRN PRN TOP WOUND CARE; Start 12/02/16 at 10:00 Miscellaneous Information VANCO TROUGH @ 1,400 ON ... ONCE ONCE XX ; Start at 14:00; Stop 12/03/16 at 14:01 Norepinephrine 16 mg/Dextrose 500 ml @ 1.87 mls/hr TITRATE IV ; Start at 10:00 Norepinephrine (Levophed) 250 ml @ 1.875 mls/ hr TITRATE IV Last administered on 12/03/16 06:22; Admin Dose 3.75 MLS/HR; Start 12/03/16 at 05:30; Stop at 09:59 Hydromorphone HCl (Dilaudid) 1 mg Q4H PRN IV PAIN LEVEL 8-10; Start 12/03/16 at 09:00; Status UNDANAY VARNER Dec 03, 2016 09:04
--- NOTE | 2016-12-03 10:10 | CONS ---
Date/Time of Note Date/Time of Note DATE: 12/03/16 TIME: 09:39 Assessment/Plan Assessment/Plan Chief Complaint/Hosp Course ID PROGRESS NOTE CURRENT ABX: TOTAL ABX DAY # 8=> Vanco IV #5 + Merrem #5 s/p Cefepime 11/25-11/29 24H INTERVAL SUMMARY * A/A/O & responsive, tells me he feels better today and is going to get a PICC line, on pressors w/VSS * Incomplete QUAD-> He is able to move his BUEXT and use hands to some degree * Afebrile today, spiked fever 101.9 yesterday, WBC normalized, hypotensive, renal fx worse today after some improvement last few days * 12/03/16 CXR: IMPRESSION:1. Tracheostomy tube.2. Pulmonary edema. 3. Small bilateral pleural effusions. * 12/03/16 0601 12/03/16 0601 Physical Exam Const: 41 yo para vs incomplete quadriplegia, A/A/O, on pressors with stable vitals, NAD Head: Atraumatic , normocephalic Eyes: Normal Conjunctiva, anicteric ENT: Normal External Ears, Nose, Edentulous Neck: Supple, (+)Trach-> secure to Vent Resp: Coarse BS anterior, scattered rales/rhonchi Cardio: Regular rate and rhythm, no murmurs Abd: Soft, non tender, peg Skin: No petechiae or rashes=> Large unstageable sacral decub Back: Deferred Ext: No cyanosis, or edema, (+)bilateral lower extremity foot drop + atrophy Neur: Awake, alert, responsive, incomplete quad Psych: Affect pleasant, polite, rational thought process ID ASSESSMENT 41 yo M PMHx C-spine injury w/incomplete quadriplegia admit with: 1. Sepsis with ongoing fevers, patient is clinically improving. * 11/29/16 BCx (-) 2. Healthcare-associated pneumonia 3. Chronic Ventilator-dependent respiratory failure. 4. Complicated recurrent urinary tract infection. * 11/24/16 URINE CULTURE Final Organism 1 ENTEROBACTER CLOACAE COLONY COUNT >100,000 CFU/ml Organism 2 MORGANELLA MORGANII SSP MORG. COLONY COUNT 50,000 - 60,000 CFU/ml 5. Neurogenic bladder with chronic suprapubic catheter. 6. Multiple renal stones in the left kidney, status post lithotripsy. 7. Removal of left ureteral JJ stent on his last admission by Dr. Marquez. 8. BELINDA on CKD w/hx of right nephrectomy. 9. Dysphagia with G-tube placement. 10. Bipolar disorder w/hx of psychosis = stable 11. Multiple decubitus ulcers. 12. History of scabies=> treated 13. Thrombocytopenia => partial ABX induced (-) MRSA Nares Hx of (+)VRE UTI 10/29/16 INVASIVES: PEG, Suprapubic cath, PIV ABX ALLERGIES: TETRACYCLINES CURRENT ABX: TOTAL ABX DAY # 8=> Vanco IV #5 + Merrem #5 s/p Cefepime 11/25-11/29 ID RECOMMENDATIONS 1. Continue current ABX and repeat renal labs in am, if renal fx worse, will DC Vanco . Problems: Consultation Date/Type/Reason Admit Date/Time Nov 24, 2016 at 21:00 Initial Consult Date 11/25/16 Type of Consultation: ID Referring Provider: JOSÉ ANTONIO MIRZA MD Exam/Review of Systems Vital Signs Vitals Vital Signs Date Time Temp Pulse Resp B/P Pulse Ox O2 Delivery O2 Flow Rate FiO2 12/03/16 09:00 78 19 111/74 100 Mechanical Ventilator 12/03/16 07:45 98.1 12/03/16 05:40 60 Intake and Output 12/02/16 12/02/16 12/03/16 15:00 23:00 07:00 Intake Total 1280 ml 1270 ml 1730 ml Output Total 950 ml 350 ml Balance 1280 ml 320 ml 1380 ml Results Result Diagram: 12/03/16 0601 12/03/16 0601 Results 24 hrs Laboratory Tests Test 12/02/16 11:24 12/03/16 06:01 12/03/16 07:00 Lactic Acid Level 1.5 White Blood Count 9.0 Red Blood Count 2.97 L Hemoglobin 9.1 L Hematocrit 30.0 L Mean Corpuscular Volume 101.0 Mean Corpuscular Hemoglobin 30.6 Mean Corpuscular Hemoglobin Concent 30.3 L Red Cell Distribution Width 16.2 H Platelet Count 91 #L Mean Platelet Volume 11.6 H Neutrophils % 80.1 H Lymphocytes % 6.3 L Monocytes % 8.6 Eosinophils % 4.3 Basophils % 0.1 Nucleated Red Blood Cells % 0.0 Neutrophils # 7.2 Lymphocytes # 0.6 L Monocytes # 0.8 Eosinophils # 0.4 Basophils # 0.0 Nucleated Red Blood Cells # 0.0 Sodium Level 146 H Potassium Level 4.9 Chloride Level 112 H Carbon Dioxide Level 26 Anion Gap 13 Blood Urea Nitrogen 50 H Creatinine 1.71 H Glucose Level 110 Calcium Level 7.8 L Blood Gas Specimen Source Blood arterial Arterial Blood Date Drawn 12/03/2016 8:40:45 AM Arterial Blood pH (Temp corrected) 7.409 Arterial Blood pCO2 (Temp correct) 39.6 Arterial Blood pO2 (Temp corrected) 109.7 H Arterial Blood HCO3 24.5 Arterial Blood Base Excess -0.1 Arterial Blood Oxygen Saturation 98.5 H Julito Test ACCEPTAB Arterial Blood Gas Puncture Site Right Radial Arterial Blood Carboxyhemoglobin 1.9 Arterial Blood Methemoglobin 0.1 Blood Gas A-a O2 Differential 274.5 H Oxyhemoglobin Percent 96.5 Total Hemoglobin 6.9 L Blood Gas Temperature 37.0 Blood Gas Respiration Rate 16.0 Blood Gas Actual Respiration Rate 17 Blood Gas Modality VENT - AC FiO2 60.0 Blood Gas Tidal Volume 600.0 Blood Gas Low PEEP Setting 5.0 Blood Gas Notified Whom [place] Blood Gas Notified Time 12/03/2016 9:13:05 AM Medications Medications Current Medications Ondansetron HCl (Zofran Inj) 4 mg Q6H PRN IV NAUSEA AND/OR VOMITING; Start at 22:00 Morphine Sulfate (morphine) 2 mg Q4H PRN IV PAIN LEVEL 7-10 Last administered on 12/03/16 08:45; Admin Dose 2 MG; Start 11/24/16 at 22:00 Enoxaparin Sodium (Lovenox) 30 mg DAILY SC Last administered on 12/03/16 08: 49; Admin Dose 30 MG; Start 11/25/16 at 09:00 Miscellaneous Information (Pending [facility] Order For Wound Care) This patient noriega... PRN PRN XX WOUND CARE; Start 11/25/16 at 06:00 Baclofen (Lioresal) 5 mg TID GTB Last administered on 12/03/16 08:45; Admin Dose 5 MG; Start 11/25/16 at 09:00 Zolpidem Tartrate (Ambien) 5 mg HS PRN GTB INSOMNIA Last administered on 20:26; Admin Dose 5 MG; Start 11/25/16 at 21:00 Dantrolene Sodium (Dantrium) 100 mg TID GTB Last administered on 12/03/16 08: 44; Admin Dose 100 MG; Start 11/25/16 at 10:00 Famotidine 20 mg 20 mg Q12 PO Last administered on 12/03/16 08:44; Admin Dose 20 MG; Start 11/26/16 at 21:00 Meropenem/Sodium Chloride 50 ml @ 200 mls/hr Q8 IVPB Last administered on 05:09; Admin Dose 200 MLS/HR; Start 11/29/16 at 14:00 Vancomycin HCl/ Dextrose (Vancocin/D5W) 250 ml @ 83.333 mls/ hr Q48H IVPB Last administered on 12/01/16 16:48; Admin Dose 83.333 MLS/HR; Start at 15:00 Citric Acid/ Sodium Citrate (Bicitra) 30 ml BID PO Last administered on 08:44; Admin Dose 30 ML; Start 12/01/16 at 09:00 Acetaminophen (Tylenol Liquid) 650 mg Q6H PRN GTB PAIN 1-3/10 OR ELEVATED TEMP Last administered on 12/03/16 05:09; Admin Dose 650 MG; Start 12/02/16 at 09: 30 Collagenase (Santyl) 1 applic DAILY TOP Last administered on 12/03/16 08:45; Admin Dose 1 APPLIC; Start 12/02/16 at 11:00 Collagenase (Santyl) 1 applic PRN PRN TOP WOUND CARE; Start 12/02/16 at 10:00 Miscellaneous Information VANCO TROUGH @ 1,400 ON ... ONCE ONCE XX ; Start at 14:00; Stop 12/03/16 at 14:01 Norepinephrine 16 mg/Dextrose 500 ml @ 1.87 mls/hr TITRATE IV ; Start at 10:00 Norepinephrine (Levophed) 250 ml @ 1.875 mls/ hr TITRATE IV Last administered on 12/03/16 06:22; Admin Dose 3.75 MLS/HR; Start 12/03/16 at 05:30; Stop at 09:59 Hydromorphone HCl 1 mg 1 mg Q4H PRN IV PAIN LEVEL 8-10; Start 12/03/16 at 09: 00 Dextrose/Sodium Chloride (D5-1/2ns) 1,000 ml @ 100 mls/hr Q10H IV ; Start at 09:30 KELSI CERDA NP Dec 03, 2016 09:50
--- NOTE | 2016-12-03 11:33 | RADRPT ---
PROCEDURE: XR Chest. CLINICAL INDICATION: Check Line Placement TECHNIQUE: Single frontal view of the chest was obtained. COMPARISON: Chest x-ray from 12/03/2016 and 06:38 hours FINDINGS: There has been interval placement of a left-sided PICC line with its tip in the superior SVC. A tracheostomy is again noted. There is stable mild cardiomegaly with stable small bilateral pleural effusions and subsegmental bib asilar atelectasis. There is stable moderate thoracic dextroscoliosis. IMPRESSION: Interval placement of a left-sided PICC line with its tip in the superior SVC. Largely stable small bilateral pleural effusions with subsegmental bibasilar atelectasis. RPTAT: EE Physician Maxime Date Time Electronically viewed and signed by Physician Maxime on 12/03/2016 11:33 /
--- NOTE | 2016-12-03 11:34 | RADRPT ---
PROCEDURE: US guidance for PICC line CLINICAL INDICATION: PICC line placement TECHNIQUE: Multiple real-time images were acquired of the patient's arm utilizing a high resolutio n transducer. This was performed by the PICC line nurse for venous access. COMPARISON: None FINDINGS: See impression. IMPRESSION: Ultrasound guidance for PICC line placement. There is a patent and compressible left upper extremity vein. RPTAT: AA Physician Maxime Date Time Electronically viewed and signed by Physician Maxime on 12/03/2016 11:33 /
[2016-12-03] MEDS: DEXTROSE 5%-0.45% NACL 1,000 ML IV SCH ×2 (11:51→18:46)
--- NOTE | 2016-12-03 13:44 | CONS ---
Date/Time of Note Date/Time of Note DATE: 12/03/16 TIME: 13:40 Consult Date/Type/Reason Admit Date/Time Nov 24, 2016 at 21:00 Initial Consult Date 11/25/16 Type of Consultation: Urology Reason for Consultation Recurrent urinary tract infection, patient status post right nephrectomy years back and left renal stones with hydronephrosis Ordering Provider: JOSÉ ANTONIO MIRZA MD Subjective Patient is sleeping, he is on respirator, has a suprapubic tube Objective Vital Signs Date Time Temp Pulse Resp B/P Pulse Ox O2 Delivery O2 Flow Rate FiO2 12/03/16 12:00 98.3 86 22 95/64 98 Mechanical Ventilator 12/03/16 08:00 50 Intake and Output 12/02/16 12/02/16 12/03/16 15:00 23:00 07:00 Intake Total 1280 ml 1270 ml 1770 ml Output Total 950 ml 425 ml Balance 1280 ml 320 ml 1345 ml Exam Suprapubic tube draining clear urine Results/Medications Result Diagram: 12/03/16 0601 12/03/16 0601 Results 24 hrs Laboratory Tests Test 12/03/16 06:01 12/03/16 07:00 White Blood Count 9.0 Red Blood Count 2.97 L Hemoglobin 9.1 L Hematocrit 30.0 L Mean Corpuscular Volume 101.0 Mean Corpuscular Hemoglobin 30.6 Mean Corpuscular Hemoglobin Concent 30.3 L Red Cell Distribution Width 16.2 H Platelet Count 91 #L Mean Platelet Volume 11.6 H Neutrophils % 80.1 H Lymphocytes % 6.3 L Monocytes % 8.6 Eosinophils % 4.3 Basophils % 0.1 Nucleated Red Blood Cells % 0.0 Neutrophils # 7.2 Lymphocytes # 0.6 L Monocytes # 0.8 Eosinophils # 0.4 Basophils # 0.0 Nucleated Red Blood Cells # 0.0 Sodium Level 146 H Potassium Level 4.9 Chloride Level 112 H Carbon Dioxide Level 26 Anion Gap 13 Blood Urea Nitrogen 50 H Creatinine 1.71 H Glucose Level 110 Calcium Level 7.8 L Blood Gas Specimen Source Blood arterial Arterial Blood Date Drawn 12/03/2016 8:40:45 AM Arterial Blood pH (Temp corrected) 7.409 Arterial Blood pCO2 (Temp correct) 39.6 Arterial Blood pO2 (Temp corrected) 109.7 H Arterial Blood HCO3 24.5 Arterial Blood Base Excess -0.1 Arterial Blood Oxygen Saturation 98.5 H Julito Test ACCEPTAB Arterial Blood Gas Puncture Site Right Radial Arterial Blood Carboxyhemoglobin 1.9 Arterial Blood Methemoglobin 0.1 Blood Gas A-a O2 Differential 274.5 H Oxyhemoglobin Percent 96.5 Total Hemoglobin 6.9 L Blood Gas Temperature 37.0 Blood Gas Respiration Rate 16.0 Blood Gas Actual Respiration Rate 17 Blood Gas Modality VENT - AC FiO2 60.0 Blood Gas Tidal Volume 600.0 Blood Gas Low PEEP Setting 5.0 Blood Gas Notified Whom [place] Blood Gas Notified Time 12/03/2016 9:13:05 AM Medications Current Medications Ondansetron HCl (Zofran Inj) 4 mg Q6H PRN IV NAUSEA AND/OR VOMITING; Start at 22:00 Morphine Sulfate (morphine) 2 mg Q4H PRN IV PAIN LEVEL 7-10 Last administered on 12/03/16 08:45; Admin Dose 2 MG; Start 11/24/16 at 22:00 Enoxaparin Sodium (Lovenox) 30 mg DAILY SC Last administered on 12/03/16 08: 49; Admin Dose 30 MG; Start 11/25/16 at 09:00 Miscellaneous Information [facility] This patient noriega... PRN PRN XX WOUND CARE; Start 11/25/16 at 06:00 Baclofen (Lioresal) 5 mg TID GTB Last administered on 12/03/16 08:45; Admin Dose 5 MG; Start 11/25/16 at 09:00 Zolpidem Tartrate (Ambien) 5 mg HS PRN GTB INSOMNIA Last administered on 20:26; Admin Dose 5 MG; Start 11/25/16 at 21:00 Dantrolene Sodium (Dantrium) 100 mg TID GTB Last administered on 12/03/16 08: 44; Admin Dose 100 MG; Start 11/25/16 at 10:00 Famotidine 20 mg 20 mg Q12 PO Last administered on 12/03/16 08:44; Admin Dose 20 MG; Start 11/26/16 at 21:00 Meropenem/Sodium Chloride 50 ml @ 200 mls/hr Q8 IVPB Last administered on 05:09; Admin Dose 200 MLS/HR; Start 11/29/16 at 14:00 Vancomycin HCl/ Dextrose (Vancocin/D5W) 250 ml @ 83.333 mls/ hr Q48H IVPB Last administered on 12/01/16 16:48; Admin Dose 83.333 MLS/HR; Start at 15:00 Citric Acid/ Sodium Citrate (Bicitra) 30 ml BID PO Last administered on 08:44; Admin Dose 30 ML; Start 12/01/16 at 09:00 Acetaminophen (Tylenol Liquid) 650 mg Q6H PRN GTB PAIN 1-3/10 OR ELEVATED TEMP Last administered on 12/03/16 05:09; Admin Dose 650 MG; Start 12/02/16 at 09: 30 Collagenase (Santyl) 1 applic DAILY TOP Last administered on 12/03/16 08:45; Admin Dose 1 APPLIC; Start 12/02/16 at 11:00 Collagenase (Santyl) 1 applic PRN PRN TOP WOUND CARE; Start 12/02/16 at 10:00 Miscellaneous Information VANCO TROUGH @ 1,400 ON ... ONCE ONCE XX ; Start at 14:00; Stop 12/03/16 at 14:01 Norepinephrine/ Dextrose (Levophed/D5W) 500 ml @ 1.87 mls/hr TITRATE IV ; Start 12/03/16 at 10:00 Hydromorphone HCl 1 mg 1 mg Q4H PRN IV PAIN LEVEL 8-10; Start 12/03/16 at 09: 00 Dextrose/Sodium Chloride (D5-1/2ns) 1,000 ml @ 100 mls/hr Q10H IV Last administered on 12/03/16 11:51; Admin Dose 100 MLS/HR; Start 12/03/16 at 09: 30 IV Flush (NS 10 ml) 10 ml PRN PRN IV IV PROTOCOL; Start 12/03/16 at 12:00 Assessment/Plan Chief Complaint/Hosp Course 41-year-old male status post right nephrectomy many years back, has only left kidney with stones in it. He did have a JJ stent that has been there for over 1 year and I removed it . The patient does have a suprapubic catheter that is draining clear urine. He has had urinary tract infection and is on antibiotic for it. CT scan showed the stones in the kidney but no stones in the ureter to cause obstruction therefore there is no need for him to have a JJ stent at the present. Recommend hydration and treating the infection as per the culture and sensitivity Problems: BHARGAV JIANG MD Dec 03, 2016 13:44
[2016-12-03] MEDS: HYDROmorphONE 0.5 MG/0.5 ML SYG IV PRN ×3 (13:52→22:18)
[2016-12-03] MEDS: VANCOMYCIN 1.25 GM in DEXTROSE 5% 250 ML IVPB SCH (15:53)
--- NOTE | 2016-12-03 19:05 | CONS ---
Date/Time of Note Date/Time of Note DATE: 12/03/16 TIME: 19:02 Assessment/Plan Assessment/Plan Additional Assessment/Plan 1. Acute kidney injury secondary to severe prerenal azotemia and possible acute tubular necrosis. 2. Acute uremia with a BUN of 107, Cr 1.99 on admission 3. Acute hyperkalemia due to BELINDA , severe metabolic acidosis on bicarbonate drip 4. Possible UTI causing septic shock 5. 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 6. History of neurogenic bladder with urinary retention, status post suprapubic catheter. 7. History of previous recurrent urinary tract infections. 8. 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 9. 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 10. Other medical history includes anxiety, depression, bipolar disorder, psychosis. 11. History of right nephrectomy with left renal nephrolithiasis and a left renal cyst measuring 5.3 cm in size. Plan: Na 146, BUN/Cr 50/1.71, s/p Bicarbonate drip, continue D51/2NS with KCL 10meQ at 100 cc/hr CT brain negative, bicitra for metabolic acidosis IV abx Meropenem and vancomycin, WBC Improving pt previosly had a full CKD work up, no need to repeat it will continue to follow up on patient Dw Dr Paul Barker/staff Consultation Date/Type/Reason Admit Date/Time Nov 24, 2016 at 21:00 Initial Consult Date 11/25/16 Type of Consultation: Urology Referring Provider: JOSÉ ANTONIO MIRZA MD 24 HR Interval Summary Free Text/Dictation remains on trach to vent, levo 6 mcg, Cr 1.71 today, no new events reported overnight, dw staff Constitutional: requiring IVF, requiring O2 Exam/Review of Systems Vital Signs Vitals Vital Signs Date Time Temp Pulse Resp B/P Pulse Ox O2 Delivery O2 Flow Rate FiO2 12/03/16 18:30 81 12 95/67 97 Mechanical Ventilator 12/03/16 16:50 50 12/03/16 16:00 98.7 Intake and Output 12/02/16 12/02/16 12/03/16 15:00 23:00 07:00 Intake Total 1280 ml 1270 ml 1770 ml Output Total 950 ml 425 ml Balance 1280 ml 320 ml 1345 ml Exam Gastrointestinal: non-tender, soft Musculoskeletal: muscle weakness Extremities: normal pulses Neurological: nl mental status Results Result Diagram: 12/03/16 0601 12/03/16 0601 Results 24 hrs Laboratory Tests Test 12/03/16 06:01 12/03/16 07:00 12/03/16 13:50 White Blood Count 9.0 Red Blood Count 2.97 L Hemoglobin 9.1 L Hematocrit 30.0 L Mean Corpuscular Volume 101.0 Mean Corpuscular Hemoglobin 30.6 Mean Corpuscular Hemoglobin Concent 30.3 L Red Cell Distribution Width 16.2 H Platelet Count 91 #L Mean Platelet Volume 11.6 H Neutrophils % 80.1 H Lymphocytes % 6.3 L Monocytes % 8.6 Eosinophils % 4.3 Basophils % 0.1 Nucleated Red Blood Cells % 0.0 Neutrophils # 7.2 Lymphocytes # 0.6 L Monocytes # 0.8 Eosinophils # 0.4 Basophils # 0.0 Nucleated Red Blood Cells # 0.0 Sodium Level 146 H Potassium Level 4.9 Chloride Level 112 H Carbon Dioxide Level 26 Anion Gap 13 Blood Urea Nitrogen 50 H Creatinine 1.71 H Glucose Level 110 Calcium Level 7.8 L Blood Gas Specimen Source Blood arterial Arterial Blood Date Drawn 12/03/2016 8:40:45 AM Arterial Blood pH (Temp corrected) 7.409 Arterial Blood pCO2 (Temp correct) 39.6 Arterial Blood pO2 (Temp corrected) 109.7 H Arterial Blood HCO3 24.5 Arterial Blood Base Excess -0.1 Arterial Blood Oxygen Saturation 98.5 H Julito Test ACCEPTAB Arterial Blood Gas Puncture Site Right Radial Arterial Blood Carboxyhemoglobin 1.9 Arterial Blood Methemoglobin 0.1 Blood Gas A-a O2 Differential 274.5 H Oxyhemoglobin Percent 96.5 Total Hemoglobin 6.9 L Blood Gas Temperature 37.0 Blood Gas Respiration Rate 16.0 Blood Gas Actual Respiration Rate 17 Blood Gas Modality VENT - AC FiO2 60.0 Blood Gas Tidal Volume 600.0 Blood Gas Low PEEP Setting 5.0 Blood Gas Notified Whom [place] Blood Gas Notified Time 12/03/2016 9:13:05 AM Vancomycin Level Trough 11.9 Medications Medications Current Medications Ondansetron HCl (Zofran Inj) 4 mg Q6H PRN IV NAUSEA AND/OR VOMITING; Start at 22:00 Morphine Sulfate (morphine) 2 mg Q4H PRN IV PAIN LEVEL 7-10 Last administered on 12/03/16 08:45; Admin Dose 2 MG; Start 11/24/16 at 22:00 Enoxaparin Sodium (Lovenox) 30 mg DAILY SC Last administered on 12/03/16 08: 49; Admin Dose 30 MG; Start 11/25/16 at 09:00 Miscellaneous Information (Pending Santyl Order For Wound Care) This patient noriega... PRN PRN XX WOUND CARE; Start 11/25/16 at 06:00 Baclofen (Lioresal) 5 mg TID GTB Last administered on 12/03/16 13:58; Admin Dose 5 MG; Start 11/25/16 at 09:00 Zolpidem Tartrate (Ambien) 5 mg HS PRN GTB INSOMNIA Last administered on 20:26; Admin Dose 5 MG; Start 11/25/16 at 21:00 Dantrolene Sodium (Dantrium) 100 mg TID GTB Last administered on 12/03/16 13: 58; Admin Dose 100 MG; Start 11/25/16 at 10:00 Famotidine 20 mg 20 mg Q12 PO Last administered on 12/03/16 08:44; Admin Dose 20 MG; Start 11/26/16 at 21:00 Meropenem/Sodium Chloride 50 ml @ 200 mls/hr Q8 IVPB Last administered on 13:57; Admin Dose 200 MLS/HR; Start 11/29/16 at 14:00 Vancomycin HCl/ Dextrose (Vancocin/D5W) 250 ml @ 83.333 mls/ hr Q48H IVPB Last administered on 12/03/16 15:53; Admin Dose 83.333 MLS/HR; Start at 15:00 Citric Acid/ Sodium Citrate (Bicitra) 30 ml BID PO Last administered on 08:44; Admin Dose 30 ML; Start 12/01/16 at 09:00 Acetaminophen (Tylenol Liquid) 650 mg Q6H PRN GTB PAIN 1-3/10 OR ELEVATED TEMP Last administered on 12/03/16 05:09; Admin Dose 650 MG; Start 12/02/16 at 09: 30 Collagenase (Santyl) 1 applic DAILY TOP Last administered on 12/03/16 08:45; Admin Dose 1 APPLIC; Start 12/02/16 at 11:00 Collagenase 1 applic 1 applic PRN PRN TOP WOUND CARE; Start 12/02/16 at 10:00 Norepinephrine/ Dextrose (Levophed/D5W) 500 ml @ 1.87 mls/hr TITRATE IV ; Start 12/03/16 at 10:00 Hydromorphone HCl 1 mg 1 mg Q4H PRN IV PAIN LEVEL 8-10 Last administered on 18:05; Admin Dose 1 MG; Start 12/03/16 at 09:00 Dextrose/Sodium Chloride (D5-1/2ns) 1,000 ml @ 100 mls/hr Q10H IV Last administered on 12/03/16 11:51; Admin Dose 100 MLS/HR; Start 12/03/16 at 09: 30 IV Flush (NS 10 ml) 10 ml PRN PRN IV IV PROTOCOL; Start 12/03/16 at 12:00 NEA VELAZCO Dec 03, 2016 19:05
[2016-12-03] MEDS: ZOLPIDEM 5 MG TAB GTB PRN (23:04)
--- NOTE | 2016-12-03 23:50 | PN ---
DATE: 12/03/2016 SUBJECTIVE: The patient is in ICU on the ventilator support. He has been started on Levophed for h ypotension since early this morning. PHYSICAL EXAMINATION: VITAL SIGNS: Show temperature 99.1, blood pressure 89/59, pulse rate of 85, respirations 16, pulse oximetry 98% saturation. He is on % inhaled oxygen concentration. NECK: Tracheal secretions are more mucopurulent, but mostly clear. HEART: Regular rhythm. CHEST: Breath sounds are diminished in the lower lung tierney with a few intermittent rales and rhon chi. ABDOMEN: Soft, not distended, tolerating gastrostomy tube feedings. Bowel sounds are present. EXTREMITIES: Show no edema. He is paraplegic. LABORATORY DATA: This morning shows WBC 9000, hemoglobin 9.1, hematocrit 30. Platelets are gradual ly decreasing to 91,000. The chemistry panel shows sodium 146, potassium 4.9, bicarbonate 26, BUN i s 50, creatinine 1.71. The sputum cultures show gram-negative rods, to be identified. The chest x- ray from today shows stable small bilateral pleural effusion with subsegmental bibasilar atelectasis . MEDICATIONS: 1. Vancomycin. 2. Meropenem. IMPRESSION: 1. Septic shock. 2. Rule out healthcare-acquired pneumonia. 3. Chronic ventilator dependent respiratory failure. 4. Acute renal failure on chronic kidney disease. 5. Urinary tract infection. 6. Chronic anemia. 7. Nephrolithiasis, status post lithotripsy, left kidney. 8. Status post tracheostomy. 9. Status post gastrostomy. 10. History of spinal cord injury, resulting in paraplegia in the past. 11. History of psychiatric illness. PLAN: 1. Continue long-term ventilator support. 2. Continue antibiotics. 3. Continue pressor drugs for blood pressure support. 4. Continue bronchodilator inhalation therapy to maintain pulmonary hygiene and clear the secretion s. 5. Continue deep venous thrombosis prophylaxis. 6. Continue G-tube feedings. Dictated By: HUMBERTO PEREZ MD, SR/QUE Conf#: [id number] DID#: [id number]
[2016-12-04] VITALS (97 sets, daily range): BP systolic 76–127; BP diastolic 46–96; PULSE 40–102; RESP 8–29
[2016-12-04] MEDS: LEVALBUTEROL (HFA) 15 GM INHALER INH SCH ×4 (01:21→19:19)
[2016-12-04] MEDS: IPRATROPIUM (HFA) 12.9 GM INHALER INH SCH ×4 (01:21→19:19)
[2016-12-04] MEDS: DEXTROSE 5%-0.45% NACL 1,000 ML IV SCH ×2 (02:13→12:04)
[2016-12-04] MEDS: HYDROmorphONE 0.5 MG/0.5 ML SYG IV PRN ×5 (02:19→20:55)
[2016-12-04] MEDS: MEROPENEM 500MG/50 ML (PMX) 50 ML IVPB SCH ×3 (05:25→21:47)
[2016-12-04] MEDS: DANTROLENE 25 MG CAP GTB SCH ×3 (08:10→20:47)
[2016-12-04] MEDS: CITRIC ACID/SODIUM CITRATE 15 ML CUP PO SCH ×2 (08:10→20:47)
[2016-12-04] MEDS: FAMOTIDINE 20 MG TAB PO SCH ×2 (08:11→20:48)
[2016-12-04] MEDS: BACLOFEN 10 MG TAB GTB SCH ×3 (08:11→20:47)
[2016-12-04] MEDS: COLLAGENASE 30 GM TUBE TOP SCH (08:11)
[2016-12-04] MEDS: ENOXAPARIN 30 MG/0.3 ML SYG SC SCH (08:12)
--- NOTE | 2016-12-04 10:10 | PN ---
Date/Time of Note Date/Time of Note DATE: 12/04/16 TIME: 10:10 Assessment/Plan VTE Prophylaxis VTE Prophylaxis Intervention: other Lines/Catheters [facility] PICC Line Central line still needed: Yes Urinary Cath still in place: Yes Reason Cath still needed: skin wounds contaminated by urine Assessment/Plan Chief Complaint/Hosp Course - Acute hypoxic respiratory failure, continue ventilatory support, breathing treatment, antibiotics for possible early pneumonia. Dr. Ames is following in pulmonology consultation. -Acute on chronic encephalopathy, CT of brain is negative for acute stroke. - Acute kidney injury, Dr. Barker will be following patient in nephrology consultation - Uremia -Recurrent urinary tract infection. Continue acute antibiotics per ID. Dr. Maciel is following in infection disease consultation. - Neurogenic bladder with suprapubic catheter. - Left renal nephrolithiasis, S/p lithotripsy and removal of a left ureteral JJ stent by Dr. Marquez 10/29. - Acute kidney injury on chronic kidney disease. - Status post right nephrectomy - Ventilator-dependent respiratory failure with tracheostomy. - Dysphagia with percutaneous endoscopic gastrostomy tube. - Multiple decubitus ulcers present on admission. - Cervical spine injury with paraplegia. - Bipolar disorder with psychosis. Problems: Subjective 24 Hr Interval Summary Free Text/Dictation Patient resting comfortably Exam/Review of Systems Vital Signs Vitals Vital Signs Date Time Temp Pulse Resp B/P Pulse Ox O2 Delivery O2 Flow Rate FiO2 12/04/16 09:15 96 21 99/82 97 Mechanical Ventilator 12/04/16 07:45 97.9 12/04/16 05:40 40 Intake and Output 12/03/16 12/03/16 12/04/16 15:00 23:00 07:00 Intake Total 537.50 ml 1898.75 ml 1237.50 ml Output Total 700 ml 755 ml 500 ml Balance -162.50 ml 1143.75 ml 737.50 ml Exam Constitutional: well developed Head: atraumatic, normocephalic Respiratory: clear to auscultation Cardiovascular: regular rate and rhythm Gastrointestinal: non-tender, soft Extremities: normal pulses Results Result Diagram: 12/04/16 0500 12/04/16 0500 Results 24 hrs Laboratory Tests Test 12/03/16 13:50 12/04/16 05:00 Vancomycin Level Trough 11.9 White Blood Count 8.9 Red Blood Count 3.38 L Hemoglobin 9.8 L Hematocrit 34.3 L Mean Corpuscular Volume 101.5 H Mean Corpuscular Hemoglobin 29.0 Mean Corpuscular Hemoglobin Concent 28.6 L Red Cell Distribution Width 16.2 H Platelet Count 123 #L Mean Platelet Volume 12.3 H Neutrophils % 71.2 Lymphocytes % 7.5 L Monocytes % 8.5 Eosinophils % 12.2 H Basophils % 0.2 Nucleated Red Blood Cells % 0.0 Neutrophils # 6.3 Lymphocytes # 0.7 L Monocytes # 0.8 Eosinophils # 1.1 H Basophils # 0.0 Nucleated Red Blood Cells # 0.0 Sodium Level 148 H Potassium Level 5.1 Chloride Level 112 H Carbon Dioxide Level 29 Anion Gap 12 Blood Urea Nitrogen 52 H Creatinine 1.47 H Glucose Level 127 Calcium Level 8.2 L Medications Medications Current Medications Ondansetron HCl (Zofran Inj) 4 mg Q6H PRN IV NAUSEA AND/OR VOMITING; Start at 22:00 Morphine Sulfate (morphine) 2 mg Q4H PRN IV PAIN LEVEL 7-10 Last administered on 12/03/16 08:45; Admin Dose 2 MG; Start 11/24/16 at 22:00 Enoxaparin Sodium (Lovenox) 30 mg DAILY SC Last administered on 12/04/16 08: 12; Admin Dose 30 MG; Start 11/25/16 at 09:00 Miscellaneous Information (Pending Santyl Order For Wound Care) This patient noriega... PRN PRN XX WOUND CARE; Start 11/25/16 at 06:00 Baclofen (Lioresal) 5 mg TID GTB Last administered on 12/04/16 08:11; Admin Dose 5 MG; Start 11/25/16 at 09:00 Zolpidem Tartrate (Ambien) 5 mg HS PRN GTB INSOMNIA Last administered on 23:04; Admin Dose 5 MG; Start 11/25/16 at 21:00 Dantrolene Sodium (Dantrium) 100 mg TID GTB Last administered on 12/04/16 08: 10; Admin Dose 100 MG; Start 11/25/16 at 10:00 Famotidine 20 mg 20 mg Q12 PO Last administered on 12/04/16 08:11; Admin Dose 20 MG; Start 11/26/16 at 21:00 Meropenem/Sodium Chloride 50 ml @ 200 mls/hr Q8 IVPB Last administered on 05:25; Admin Dose 200 MLS/HR; Start 11/29/16 at 14:00 Vancomycin HCl/ Dextrose (Vancocin/D5W) 250 ml @ 83.333 mls/ hr Q48H IVPB Last administered on 12/03/16 15:53; Admin Dose 83.333 MLS/HR; Start at 15:00 Citric Acid/ Sodium Citrate (Bicitra) 30 ml BID PO Last administered on 08:10; Admin Dose 30 ML; Start 12/01/16 at 09:00 Acetaminophen (Tylenol Liquid) 650 mg Q6H PRN GTB PAIN 1-3/10 OR ELEVATED TEMP Last administered on 12/03/16 05:09; Admin Dose 650 MG; Start 12/02/16 at 09: 30 Collagenase (Santyl) 1 applic DAILY TOP Last administered on 12/04/16 08:11; Admin Dose 1 APPLIC; Start 12/02/16 at 11:00 Collagenase 1 applic 1 applic PRN PRN TOP WOUND CARE; Start 12/02/16 at 10:00 Norepinephrine/ Dextrose (Levophed/D5W) 500 ml @ 1.87 mls/hr TITRATE IV Last administered on 12/04/16 00:43; Admin Dose 11.25 MLS/HR; Start 12/03/16 at 10 :00 Hydromorphone HCl 1 mg 1 mg Q4H PRN IV PAIN LEVEL 8-10 Last administered on 08:10; Admin Dose 1 MG; Start 12/03/16 at 09:00 Dextrose/Sodium Chloride (D5-1/2ns) 1,000 ml @ 100 mls/hr Q10H IV Last administered on 12/04/16 02:13; Admin Dose 100 MLS/HR; Start 12/03/16 at 09: 30 IV Flush (NS 10 ml) 10 ml PRN PRN IV IV PROTOCOL; Start 12/03/16 at 12:00 DANAY MUIR Dec 04, 2016 10:10
--- NOTE | 2016-12-04 12:08 | RADRPT ---
Vent Rate: 75 bpm RR Interval: 0 msec NC Interval: 166 msec QRS Duration: 98 msec QT Interval: 360 msec QTC Interval: 402 msec P-R-T [place]: 45 - 29 - 58 degrees Normal sinus rhythm Normal ECG Electronically Signed By: Deandre Chavez [id number]
--- NOTE | 2016-12-04 12:08 | RADRPT ---
Vent Rate: 75 bpm RR Interval: 0 msec AR Interval: 166 msec QRS Duration: 98 msec QT Interval: 360 msec QTC Interval: 402 msec P-R-T [place]: 45 - 29 - 58 degrees Normal sinus rhythm Normal ECG Electronically Signed By: Deandre Chavez [id number]
--- NOTE | 2016-12-04 12:08 | RADRPT ---
Vent Rate: 75 bpm RR Interval: 0 msec [place] Interval: 166 msec QRS Duration: 98 msec QT Interval: 360 msec QTC Interval: 402 msec P-R-T [place]: 45 - 29 - 58 degrees Normal sinus rhythm Normal ECG Electronically Signed By: Deandre Chavez [id number]
--- NOTE | 2016-12-04 14:26 | PN ---
Date/Time of Note Date/Time of Note DATE: 12/04/16 TIME: 14:18 Assessment/Plan VTE Prophylaxis VTE Prophylaxis Intervention: LMWH Lines/Catheters IV [facility] ([facility] PICC Line Central line still needed: Yes Urinary Cath still in place: Yes Reason Cath still needed: urinary retention, other (indicate) (Suprapubic tube) Assessment/Plan Chief Complaint/Hosp Course 41-year-old male status post right nephrectomy many years back, has only left kidney with stones in it. He did have a JJ stent that has been there for over 1 year and I removed it . The patient does have a suprapubic catheter that is draining clear urine. He has had urinary tract infection and is on antibiotic for it. CT scan showed the stones in the kidney but no stones in the ureter to cause obstruction therefore there is no need for him to have a JJ stent at the present. Patient is on Levophed drip. Urine culture shows gram-negative rods and yeast. Patient will probably continue to have recurrent infections because of the stones in his kidney and to remove the stones will be very difficult therefore recommendation is to treat him symptomatically. Recommend hydration and treating the infection as per the culture and sensitivity Problems: Subjective 24 Hr Interval Summary Subjective hx not possible: pt non-verbal Respiratory: other (Patient on respirator) Gastrointestinal: no complaints Genitourinary: other (Suprapubic tube) Exam/Review of Systems Vital Signs Vitals Vital Signs Date Time Temp Pulse Resp B/P Pulse Ox O2 Delivery O2 Flow Rate FiO2 12/04/16 14:00 79 23 108/73 98 Mechanical Ventilator 12/04/16 12:00 97.8 12/04/16 11:10 40 Intake and Output 12/03/16 12/03/16 12/04/16 15:00 23:00 07:00 Intake Total 537.50 ml 1898.75 ml 1237.50 ml Output Total 700 ml 755 ml 500 ml Balance -162.50 ml 1143.75 ml 737.50 ml Exam Psych: no complaints ENMT: other (Tracheostomy) Respiratory: other (Patient on a respirator) Genitourinary - Male: other (Suprapubic tube) Results Result Diagram: 12/04/16 0500 12/04/16 0500 Results 24 hrs Laboratory Tests Test 12/04/16 05:00 White Blood Count 8.9 Red Blood Count 3.38 L Hemoglobin 9.8 L Hematocrit 34.3 L Mean Corpuscular Volume 101.5 H Mean Corpuscular Hemoglobin 29.0 Mean Corpuscular Hemoglobin Concent 28.6 L Red Cell Distribution Width 16.2 H Platelet Count 123 #L Mean Platelet Volume 12.3 H Neutrophils % 71.2 Lymphocytes % 7.5 L Monocytes % 8.5 Eosinophils % 12.2 H Basophils % 0.2 Nucleated Red Blood Cells % 0.0 Neutrophils # 6.3 Lymphocytes # 0.7 L Monocytes # 0.8 Eosinophils # 1.1 H Basophils # 0.0 Nucleated Red Blood Cells # 0.0 Sodium Level 148 H Potassium Level 5.1 Chloride Level 112 H Carbon Dioxide Level 29 Anion Gap 12 Blood Urea Nitrogen 52 H Creatinine 1.47 H Glucose Level 127 Calcium Level 8.2 L Medications Medications Current Medications Ondansetron HCl (Zofran Inj) 4 mg Q6H PRN IV NAUSEA AND/OR VOMITING; Start at 22:00 Morphine Sulfate (morphine) 2 mg Q4H PRN IV PAIN LEVEL 7-10 Last administered on 12/03/16 08:45; Admin Dose 2 MG; Start 11/24/16 at 22:00 Enoxaparin Sodium (Lovenox) 30 mg DAILY SC Last administered on 12/04/16 08: 12; Admin Dose 30 MG; Start 11/25/16 at 09:00 Miscellaneous Information (Pending Santyl Order For Wound Care) This patient noriega... PRN PRN XX WOUND CARE; Start 11/25/16 at 06:00 Baclofen (Lioresal) 5 mg TID GTB Last administered on 12/04/16 12:05; Admin Dose 5 MG; Start 11/25/16 at 09:00 Zolpidem Tartrate (Ambien) 5 mg HS PRN GTB INSOMNIA Last administered on 23:04; Admin Dose 5 MG; Start 11/25/16 at 21:00 Dantrolene Sodium (Dantrium) 100 mg TID GTB Last administered on 12/04/16 12: 05; Admin Dose 100 MG; Start 11/25/16 at 10:00 Famotidine 20 mg 20 mg Q12 PO Last administered on 12/04/16 08:11; Admin Dose 20 MG; Start 11/26/16 at 21:00 Meropenem/Sodium Chloride 50 ml @ 200 mls/hr Q8 IVPB Last administered on 13:03; Admin Dose 200 MLS/HR; Start 11/29/16 at 14:00 Vancomycin HCl/ Dextrose (Vancocin/D5W) 250 ml @ 83.333 mls/ hr Q48H IVPB Last administered on 12/03/16 15:53; Admin Dose 83.333 MLS/HR; Start at 15:00 Citric Acid/ Sodium Citrate (Bicitra) 30 ml BID PO Last administered on 08:10; Admin Dose 30 ML; Start 12/01/16 at 09:00 Acetaminophen (Tylenol Liquid) 650 mg Q6H PRN GTB PAIN 1-3/10 OR ELEVATED TEMP Last administered on 12/03/16 05:09; Admin Dose 650 MG; Start 12/02/16 at 09: 30 Collagenase (Santyl) 1 applic DAILY TOP Last administered on 12/04/16 08:11; Admin Dose 1 APPLIC; Start 12/02/16 at 11:00 Collagenase 1 applic 1 applic PRN PRN TOP WOUND CARE; Start 12/02/16 at 10:00 Norepinephrine/ Dextrose (Levophed/D5W) 500 ml @ 1.87 mls/hr TITRATE IV Last administered on 12/04/16 00:43; Admin Dose 11.25 MLS/HR; Start 12/03/16 at 10 :00 Hydromorphone HCl 1 mg 1 mg Q4H PRN IV PAIN LEVEL 8-10 Last administered on 13:04; Admin Dose 1 MG; Start 12/03/16 at 09:00 Dextrose/Sodium Chloride (D5-1/2ns) 1,000 ml @ 100 mls/hr Q10H IV Last administered on 12/04/16 12:04; Admin Dose 100 MLS/HR; Start 12/03/16 at 09: 30 IV Flush (NS 10 ml) 10 ml PRN PRN IV IV PROTOCOL; Start 12/03/16 at 12:00 BHARGAV JIANG MD Dec 04, 2016 14:26
--- NOTE | 2016-12-04 14:59 | PN ---
Date/Time of Note Date/Time of Note DATE: 12/04/16 TIME: 14:53 Assessment/Plan VTE Prophylaxis VTE Prophylaxis Intervention: SCD's Lines/Catheters IV Catheter Type (from Nrs): PICC Line Central line still needed: Yes Urinary Cath still in place: Yes Reason Cath still needed: urinary retention Assessment/Plan Assessment/Plan 1. Acute kidney injury secondary to severe prerenal azotemia and possible acute tubular necrosis. 2. Acute uremia with a BUN of 107, Cr 1.99 on admission -BUN / Cr =52 / 1.47 today 3. Acute hyperkalemia due to BELINDA , severe metabolic acidosis on bicarbonate drip 4. Possible UTI causing septic shock 5. 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 6. History of neurogenic bladder with urinary retention, status post suprapubic catheter. 7. History of previous recurrent urinary tract infections. 8. 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 9. 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 10. Other medical history includes anxiety, depression, bipolar disorder, psychosis. 11. History of right nephrectomy with left renal nephrolithiasis and a left renal cyst measuring 5.3 cm in size. Plan: -Na 148 BUN/Cr 52/1.47 -- change IVF D5W at 70 cc/hr x1 liter - s/p Bicarbonate drip -CT brain negative, -bicitra for metabolic acidosis -IV abx Meropenem and vancomycin, WBC Improving -pt previously had a full CKD work up, no need to repeat it -will continue to follow up on patient -Dw Dr Paul Barker/staff Subjective 24 Hr Interval Summary Free Text/Dictation -Na 148, BUN/Cr 52/1.47 - remains on trach to vent, levo 4 mcg - no new events reported overnight, dw staff Constitutional: requiring IVF, requiring O2 Exam/Review of Systems Vital Signs Vitals Vital Signs Date Time Temp Pulse Resp B/P Pulse Ox O2 Delivery O2 Flow Rate FiO2 12/04/16 14:00 79 23 108/73 98 Mechanical Ventilator 12/04/16 12:00 97.8 12/04/16 11:10 40 Intake and Output 12/03/16 12/03/16 12/04/16 15:00 23:00 07:00 Intake Total 537.50 ml 1898.75 ml 1237.50 ml Output Total 700 ml 755 ml 500 ml Balance -162.50 ml 1143.75 ml 737.50 ml Exam Constitutional: non-verbal Respiratory: diminished breath sounds, normal air movement Cardiovascular: nl pulses Gastrointestinal: non-tender, other (gt intact), soft Musculoskeletal: muscle weakness Extremities: normal pulses Neurological: confused Results Result Diagram: 12/04/16 0500 12/04/16 0500 Results 24 hrs Laboratory Tests Test 12/04/16 05:00 White Blood Count 8.9 Red Blood Count 3.38 L Hemoglobin 9.8 L Hematocrit 34.3 L Mean Corpuscular Volume 101.5 H Mean Corpuscular Hemoglobin 29.0 Mean Corpuscular Hemoglobin Concent 28.6 L Red Cell Distribution Width 16.2 H Platelet Count 123 #L Mean Platelet Volume 12.3 H Neutrophils % 71.2 Lymphocytes % 7.5 L Monocytes % 8.5 Eosinophils % 12.2 H Basophils % 0.2 Nucleated Red Blood Cells % 0.0 Neutrophils # 6.3 Lymphocytes # 0.7 L Monocytes # 0.8 Eosinophils # 1.1 H Basophils # 0.0 Nucleated Red Blood Cells # 0.0 Sodium Level 148 H Potassium Level 5.1 Chloride Level 112 H Carbon Dioxide Level 29 Anion Gap 12 Blood Urea Nitrogen 52 H Creatinine 1.47 H Glucose Level 127 Calcium Level 8.2 L Medications Medications Current Medications Ondansetron HCl (Zofran Inj) 4 mg Q6H PRN IV NAUSEA AND/OR VOMITING; Start at 22:00 Morphine Sulfate (morphine) 2 mg Q4H PRN IV PAIN LEVEL 7-10 Last administered on 12/03/16 08:45; Admin Dose 2 MG; Start 11/24/16 at 22:00 Enoxaparin Sodium (Lovenox) 30 mg DAILY SC Last administered on 12/04/16 08: 12; Admin Dose 30 MG; Start 11/25/16 at 09:00 Miscellaneous Information (Pending Santyl Order For Wound Care) This patient noriega... PRN PRN XX WOUND CARE; Start 11/25/16 at 06:00 Baclofen (Lioresal) 5 mg TID GTB Last administered on 12/04/16 12:05; Admin Dose 5 MG; Start 11/25/16 at 09:00 Zolpidem Tartrate (Ambien) 5 mg HS PRN GTB INSOMNIA Last administered on 23:04; Admin Dose 5 MG; Start 11/25/16 at 21:00 Dantrolene Sodium (Dantrium) 100 mg TID GTB Last administered on 12/04/16 12: 05; Admin Dose 100 MG; Start 11/25/16 at 10:00 Famotidine 20 mg 20 mg Q12 PO Last administered on 12/04/16 08:11; Admin Dose 20 MG; Start 11/26/16 at 21:00 Meropenem/Sodium Chloride 50 ml @ 200 mls/hr Q8 IVPB Last administered on 13:03; Admin Dose 200 MLS/HR; Start 11/29/16 at 14:00 Vancomycin HCl/ Dextrose (Vancocin/D5W) 250 ml @ 83.333 mls/ hr Q48H IVPB Last administered on 12/03/16 15:53; Admin Dose 83.333 MLS/HR; Start at 15:00 Citric Acid/ Sodium Citrate (Bicitra) 30 ml BID PO Last administered on 08:10; Admin Dose 30 ML; Start 12/01/16 at 09:00 Acetaminophen (Tylenol Liquid) 650 mg Q6H PRN GTB PAIN 1-3/10 OR ELEVATED TEMP Last administered on 12/03/16 05:09; Admin Dose 650 MG; Start 12/02/16 at 09: 30 Collagenase (Santyl) 1 applic DAILY TOP Last administered on 12/04/16 08:11; Admin Dose 1 APPLIC; Start 12/02/16 at 11:00 Collagenase 1 applic 1 applic PRN PRN TOP WOUND CARE; Start 12/02/16 at 10:00 Norepinephrine/ Dextrose (Levophed/D5W) 500 ml @ 1.87 mls/hr TITRATE IV Last administered on 12/04/16 00:43; Admin Dose 11.25 MLS/HR; Start 12/03/16 at 10 :00 Hydromorphone HCl 1 mg 1 mg Q4H PRN IV PAIN LEVEL 8-10 Last administered on 13:04; Admin Dose 1 MG; Start 12/03/16 at 09:00 Dextrose/Sodium Chloride (D5-1/2ns) 1,000 ml @ 100 mls/hr Q10H IV Last administered on 12/04/16t 12:04; Admin Dose 100 MLS/HR; Start 12/03/16 at 09: 30 IV Flush (NS 10 ml) 10 ml PRN PRN IV IV PROTOCOL; Start 12/03/16 at 12:00 NAE VELAZCO Dec 04, 2016 14:59
[2016-12-04] MEDS: DEXTROSE 5% 1,000 ML IV SCH (15:41)
--- NOTE | 2016-12-04 15:58 | PN ---
DATE: 11/27/2016 SUBJECTIVE: The patient is awake, responsive. He is on ventilator support through tracheostomy. H is breathing appears unlabored. PHYSICAL EXAMINATION: VITAL SIGNS: Temperature is 97.9 earlier in the morning. Blood pressure is 112/78, but he requires 6 mcg of Levophed drip, pulse rate is 77, respirations 19, pulse oximetry 97% saturation. NECK: Tracheal secretions are clear. No bleeding is seen. HEART: Regular rhythm. CHEST: Breath sounds are heard, diminished in both the lower lung tierney with a few intermittent ra les and rhonchi. ABDOMEN: Soft, not distended, tolerating gastrostomy tube feedings. Bowel sounds are present. EXTREMITIES: Show no edema. He is paraplegic. LABORATORY DATA: Show WBC 8900, hemoglobin 9.8, hematocrit 34.3, platelets are decreased to 123,000 , but better than yesterday. The chemistry panel shows glucose of 127, sodium 148, potassium 5.1, B UN 52, creatinine 1.47. The sputum culture is reported to show growth of acinetobacter baumannii. IMPRESSION: 1. Septic shock. 2. Acinetobacter baumannii pneumonia. 3. Chronic ventilator dependent respiratory failure. 4. Acute renal failure on chronic kidney disease. 5. Urinary tract infection. 6. Chronic anemia. 7. Nephrolithiasis status post lithotripsy of kidney. 8. Status post . 9. Status post gastrostomy. 10. History of spinal cord injury with paraplegia in the past. 10. History psychiatric illness. RECOMMENDATIONS: 1. Continue long-term ventilator support. 2. Continue antibiotics per infectious disease oracle ascp consultant. 3. Continue pressor drugs. Followup blood pressure support. 4. Continue bronchodilator inhalation therapy to maintain pulmonary hygiene and clear the secretion s. 5. Continue G-tube feedings. 6. Continue deep venous thrombosis prophylaxis. Dictated By: HUMBERTO PEREZ MD SR/QUE Conf#: [id number] DID#: [id number]
--- NOTE | 2016-12-04 18:12 | CONS ---
Date/Time of Note Date/Time of Note DATE: 12/04/16 TIME: 18:05 Assessment/Plan Assessment/Plan Chief Complaint/Hosp Course ID PROGRESS NOTE CURRENT ABX: TOTAL ABX DAY # 9 => + Merrem #6 + Cancidas #1 + GENT #1 s/p Cefepime 11/25-11/29 2/p Vanco IV #6 ->< DC 12/04 PM 24H INTERVAL SUMMARY * Spiked fever -- Urine cs sent * URINE CULTURE Preliminary Organism 1 YEAST,NOT ALONA ALBICANS COLONY COUNT >100,000 CFU/ml Organism 2 GRAM NEGATIVE ANGÉLICA COLONY COUNT >100,000 CFU/ml * Sputum cx RESPIRATORY CULTURE Final Organism 1 ACINETOBACTER BAUMANNII QUANTITY 2+ A.BAUMANNI M.I.C. RX --------- --- AMIKACIN R CEFEPIME >=64 R CEFOTAXIME R CEFTAZIDIME >=64 R CIPROFLOXACIN >=4 R GENTAMICIN 2 S IMIPENEM >=16 R LEVOFLOXACIN >=8 R TOBRAMYCIN 4 S PIPERACILLIN/TAZOBACTAM >=128 R Physical Exam Const: 41 yo para vs incomplete quadriplegia, A/A/O, on pressors with stable vitals, NAD Head: Atraumatic , normocephalic Eyes: Normal Conjunctiva, anicteric ENT: Normal External Ears, Nose, Edentulous Neck: Supple, (+)Trach-> secure to Vent Resp: Coarse BS anterior, scattered rales/rhonchi Cardio: Regular rate and rhythm, no murmurs Abd: Soft, non tender, peg Skin: No petechiae or rashes=> Large unstageable sacral decub Back: Deferred Ext: No cyanosis, or edema, (+)bilateral lower extremity foot drop + atrophy Neur: Awake, alert, responsive, incomplete quad Psych: Affect pleasant, polite, rational thought process ID ASSESSMENT 41 yo M PMHx C-spine injury w/incomplete quadriplegia admit with: 1. Sepsis with ongoing fevers, patient is clinically improving. * 11/29/16 BCx (-) 2. Healthcare-associated pneumonia * 12/02/16 SPUTUM: ACINETOBACTER BAUMANNII 3. Chronic Ventilator-dependent respiratory failure. 4. Complicated recurrent urinary tract infection. * 12/02/16=> suprapubic urine cx: URINE CULTURE Preliminary Organism 1 YEAST,NOT ALONA ALBICANS COLONY COUNT >100,000 CFU/ml Organism 2 GRAM NEGATIVE ANGÉLICA COLONY COUNT >100,000 CFU/ml 5. Neurogenic bladder with chronic suprapubic catheter. 6. Multiple renal stones in the left kidney, status post lithotripsy. 7. Removal of left ureteral JJ stent on his last admission by Dr. Marquez. 8. BELINDA on CKD w/hx of right nephrectomy. 9. Dysphagia with G-tube placement. 10. Bipolar disorder w/hx of psychosis = stable 11. Multiple decubitus ulcers. 12. History of scabies=> treated 13. Thrombocytopenia => partial ABX induced (-) MRSA Nares Hx of (+)VRE UTI 10/29/16 INVASIVES: PEG, Suprapubic cath, PIV ABX ALLERGIES: TETRACYCLINES CURRENT ABX: TOTAL ABX DAY # 9 => + Merrem #6 + Cancidas #1 + GENT #1 s/p Cefepime 11/25-11/29 2/p Vanco IV #6 ->< DC 12/04 PM ID RECOMMENDATIONS 1. DC Vanco ->NO evidence GPC 2. Add GENT IV to cover ACBA + Cancidas for YEAST - NOT C.Albicans from suprapubic catheter ? can that catheter be changed? 3. Continue MERREM for now -- pending GNR UTI result, adjust MERREM per micro sensitivities still pending . . Problems: Consultation Date/Type/Reason Admit Date/Time Nov 24, 2016 at 21:00 Initial Consult Date 11/25/16 Type of Consultation: id Referring Provider: JOSÉ ANTONIO MIRZA MD Exam/Review of Systems Vital Signs Vitals Vital Signs Date Time Temp Pulse Resp B/P Pulse Ox O2 Delivery O2 Flow Rate FiO2 12/04/16 17:30 77 14 112/81 99 Mechanical Ventilator 12/04/16 16:00 97.8 12/04/16 11:10 40 Intake and Output 12/03/16 12/03/16 12/04/16 15:00 23:00 07:00 Intake Total 537.50 ml 1898.75 ml 1237.50 ml Output Total 700 ml 755 ml 500 ml Balance -162.50 ml 1143.75 ml 737.50 ml Results Result Diagram: 12/04/16 0500 12/04/16 0500 Results 24 hrs Laboratory Tests Test 12/04/16 05:00 White Blood Count 8.9 Red Blood Count 3.38 L Hemoglobin 9.8 L Hematocrit 34.3 L Mean Corpuscular Volume 101.5 H Mean Corpuscular Hemoglobin 29.0 Mean Corpuscular Hemoglobin Concent 28.6 L Red Cell Distribution Width 16.2 H Platelet Count 123 #L Mean Platelet Volume 12.3 H Neutrophils % 71.2 Lymphocytes % 7.5 L Monocytes % 8.5 Eosinophils % 12.2 H Basophils % 0.2 Nucleated Red Blood Cells % 0.0 Neutrophils # 6.3 Lymphocytes # 0.7 L Monocytes # 0.8 Eosinophils # 1.1 H Basophils # 0.0 Nucleated Red Blood Cells # 0.0 Sodium Level 148 H Potassium Level 5.1 Chloride Level 112 H Carbon Dioxide Level 29 Anion Gap 12 Blood Urea Nitrogen 52 H Creatinine 1.47 H Glucose Level 127 Calcium Level 8.2 L Medications Medications Current Medications Ondansetron HCl (Zofran Inj) 4 mg Q6H PRN IV NAUSEA AND/OR VOMITING; Start at 22:00 Morphine Sulfate (morphine) 2 mg Q4H PRN IV PAIN LEVEL 7-10 Last administered on 12/03/16 08:45; Admin Dose 2 MG; Start 11/24/16 at 22:00 Enoxaparin Sodium (Lovenox) 30 mg DAILY SC Last administered on 12/04/16 08: 12; Admin Dose 30 MG; Start 11/25/16 at 09:00 Miscellaneous Information (Pending Santyl Order For Wound Care) This patient noriega... PRN PRN XX WOUND CARE; Start 11/25/16 at 06:00 Baclofen (Lioresal) 5 mg TID GTB Last administered on 12/04/16 12:05; Admin Dose 5 MG; Start 11/25/16 at 09:00 Zolpidem Tartrate (Ambien) 5 mg HS PRN GTB INSOMNIA Last administered on 23:04; Admin Dose 5 MG; Start 11/25/16 at 21:00 Dantrolene Sodium (Dantrium) 100 mg TID GTB Last administered on 12/04/16 12: 05; Admin Dose 100 MG; Start 11/25/16 at 10:00 Famotidine 20 mg 20 mg Q12 PO Last administered on 12/04/16 08:11; Admin Dose 20 MG; Start 11/26/16 at 21:00 Meropenem/Sodium Chloride 50 ml @ 200 mls/hr Q8 IVPB Last administered on 13:03; Admin Dose 200 MLS/HR; Start 11/29/16 at 14:00 Vancomycin HCl/ Dextrose (Vancocin/D5W) 250 ml @ 83.333 mls/ hr Q48H IVPB Last administered on 12/03/16 15:53; Admin Dose 83.333 MLS/HR; Start at 15:00 Citric Acid/ Sodium Citrate (Bicitra) 30 ml BID PO Last administered on 08:10; Admin Dose 30 ML; Start 12/01/16 at 09:00 Acetaminophen (Tylenol Liquid) 650 mg Q6H PRN GTB PAIN 1-3/10 OR ELEVATED TEMP Last administered on 12/03/16 05:09; Admin Dose 650 MG; Start 12/02/16 at 09: 30 Collagenase (Santyl) 1 applic DAILY TOP Last administered on 12/04/16 08:11; Admin Dose 1 APPLIC; Start 12/02/16 at 11:00 Collagenase 1 applic 1 applic PRN PRN TOP WOUND CARE; Start 12/02/16 at 10:00 Norepinephrine/ Dextrose (Levophed/D5W) 500 ml @ 1.87 mls/hr TITRATE IV Last administered on 12/04/16 00:43; Admin Dose 11.25 MLS/HR; Start 12/03/16 at 10 :00 Hydromorphone HCl (Dilaudid) 1 mg Q4H PRN IV PAIN LEVEL 8-10 Last administered on 12/04/16 16:58; Admin Dose 1 MG; Start 12/03/16 at 09:00 IV Flush 10 ml 10 ml PRN PRN IV IV PROTOCOL; Start 12/03/16 at 12:00 Dextrose (D5W) 1,000 ml @ 70 mls/hr [id number] IV Last administered on 15:41; Admin Dose 70 MLS/HR; Start 12/04/16 at 15:00 KELSI CERDA NP Dec 04, 2016 18:12
[2016-12-04] MEDS ORDERED: LEVOFLOXACIN 500MG/D5W (PMX) 100 ML IVPB SCH (18:30)
[2016-12-04] MEDS ORDERED: CASPOFUNGIN 70 MG in SOD CHLORIDE 0.9% 250 ML IVPB ONE (20:00)
[2016-12-04] MEDS ORDERED: GENTAMICIN IV PER PHARMACY XX SCH (20:00)
[2016-12-04] MEDS ORDERED: GENTAMICIN 350 MG in DEXTROSE 5% 100 ML IVPB SCH (21:00)
[2016-12-04] MEDS: ZOLPIDEM 5 MG TAB GTB PRN (21:46)
[2016-12-05] VITALS (100 sets, daily range): BP systolic 84–123; BP diastolic 52–82; PULSE 56–103; RESP 13–31
[2016-12-05] MEDS: HYDROmorphONE 0.5 MG/0.5 ML SYG IV PRN ×6 (00:56→21:33)
[2016-12-05] MEDS: IPRATROPIUM (HFA) 12.9 GM INHALER INH SCH ×4 (01:18→19:47)
[2016-12-05] MEDS: LEVALBUTEROL (HFA) 15 GM INHALER INH SCH ×4 (01:18→19:48)
[2016-12-05] MEDS: DEXTROSE 5% 1,000 ML IV SCH ×2 (05:08→20:38)
[2016-12-05] MEDS: MEROPENEM 500MG/50 ML (PMX) 50 ML IVPB SCH ×3 (05:25→21:30)
[2016-12-05] MEDS: CITRIC ACID/SODIUM CITRATE 15 ML CUP PO SCH ×2 (09:14→20:41)
[2016-12-05] MEDS: BACLOFEN 10 MG TAB GTB SCH ×3 (09:14→20:41)
[2016-12-05] MEDS: FAMOTIDINE 20 MG TAB PO SCH ×2 (09:15→20:41)
[2016-12-05] MEDS: ENOXAPARIN 30 MG/0.3 ML SYG SC SCH (09:15)
[2016-12-05] MEDS: DANTROLENE 25 MG CAP GTB SCH ×3 (09:15→20:45)
[2016-12-05] MEDS: COLLAGENASE 30 GM TUBE TOP SCH (09:16)
--- NOTE | 2016-12-05 10:21 | PN ---
DATE: 12/05/2016 The patient is awake, responsive. He is breathing comfortably with ventilator support through trach eostomy. PHYSICAL EXAMINATION: VITAL SIGNS: Temperature last reading 98.2. The most recent blood pressure is 100/73, pulse rate i s 67, respirations 17, pulse oximetry 98% saturation. He is on Levophed at 4 mcg dosage to maintain his blood pressure. NECK: Tracheal secretions are clear. No bleeding is seen. HEART: Regular rhythm. CHEST: Breath sounds are heard bilaterally, diminished in the lower lung tierney with a few intermit tent rales and rhonchi. Otherwise, mostly clear in the mid lung tierney. ABDOMEN: Soft. Tolerating gastrostomy tube feedings. Bowel sounds are normally present. No local ized tenderness is felt. EXTREMITIES: Show no edema. He is paraplegic. LABORATORY DATA: Arterial blood gases done on 12/03/2016, shows pH 7.40, pCO2 of 39, pO2 109 on 60% oxygen with a PEEP of 5. At present he is on 40% inhaled oxygen concentration. CBC shows a WBC of 4600, hemoglobin 9, hematocrit 31.4, platelets decreased to 118,000. The coal chemist ry panel shows sodium 145, potassium 5.3, BUN 48, creatinine 1.35, glucose 112. Sputum culture shows acinetobacter. The urine culture shows gram-negative rods and Kristina albicans . IMPRESSION: 1. Septic shock. 2. Acinetobacter baumannii pneumonia. 3. Chronic ventilator dependent respiratory failure. 4. Acute renal failure on chronic kidney disease. 5. Urinary tract infection. 6. Chronic anemia. 7. Nephrolithiasis status post lithotripsy left kidney. 8. Status post tracheostomy. 9. Status post gastrostomy. 10. History of spinal cord injury with paraplegia. 11. History of psychiatric illness. RECOMMENDATIONS: 1. Continue long-term ventilator support. 2. Continue antibiotics per infectious disease clothing consultant. He is on meropenem, gentamicin and casp ofungin. 3. Continue pressor drugs to maintain the blood pressure. 4. Continue bronchodilator inhalation therapy to mobilize pulmonary secretions and improve bronchia l hygiene. 5. Continue G-tube feedings. 6. Continue deep vein thrombosis prophylaxis. Dictated By: HUMBERTO PEREZ MD, SR/QUE Conf#: [id number] DID#: [id number]
--- NOTE | 2016-12-05 10:21 | PN ---
DATE: 12/05/2016 The patient is awake, responsive. He is breathing comfortably with ventilator support through trach eostomy. PHYSICAL EXAMINATION: VITAL SIGNS: Temperature last reading 98.2. The most recent blood pressure is 100/73, pulse rate i s 67, respirations 17, pulse oximetry 98% saturation. He is on Levophed at 4 mcg dosage to maintain his blood pressure. NECK: Tracheal secretions are clear. No bleeding is seen. HEART: Regular rhythm. CHEST: Breath sounds are heard bilaterally, diminished in the lower lung tierney with a few intermit tent rales and rhonchi. Otherwise, mostly clear in the mid lung tierney. ABDOMEN: Soft. Tolerating gastrostomy tube feedings. Bowel sounds are normally present. No local ized tenderness is felt. EXTREMITIES: Show no edema. He is paraplegic. LABORATORY DATA: Arterial blood gases done on 12/03/2016, shows pH 7.40, pCO2 of 39, pO2 109 on 60% oxygen with a PEEP of 5. At present he is on 40% inhaled oxygen concentration. CBC shows a WBC of 4600, hemoglobin 9, hematocrit 31.4, platelets decreased to 118,000. The physical chemist ry panel shows sodium 145, potassium 5.3, BUN 48, creatinine 1.35, glucose 112. Sputum culture shows acinetobacter. The urine culture shows gram-negative rods and Kristina albicans . IMPRESSION: 1. Septic shock. 2. Acinetobacter baumannii pneumonia. 3. Chronic ventilator dependent respiratory failure. 4. Acute renal failure on chronic kidney disease. 5. Urinary tract infection. 6. Chronic anemia. 7. Nephrolithiasis status post lithotripsy left kidney. 8. Status post tracheostomy. 9. Status post gastrostomy. 10. History of spinal cord injury with paraplegia. 11. History of psychiatric illness. RECOMMENDATIONS: 1. Continue long-term ventilator support. 2. Continue antibiotics per infectious disease sharepoint consultant. He is on meropenem, gentamicin and casp ofungin. 3. Continue pressor drugs to maintain the blood pressure. 4. Continue bronchodilator inhalation therapy to mobilize pulmonary secretions and improve bronchia l hygiene. 5. Continue G-tube feedings. 6. Continue deep vein thrombosis prophylaxis. Dictated By: HUMBERTO PEREZ MD, SR/QUE Conf#: [id number] DID#: [id number]
--- NOTE | 2016-12-05 10:21 | PN ---
DATE: 12/05/2016 The patient is awake, responsive. He is breathing comfortably with ventilator support through trach eostomy. PHYSICAL EXAMINATION: VITAL SIGNS: Temperature last reading 98.2. The most recent blood pressure is 100/73, pulse rate i s 67, respirations 17, pulse oximetry 98% saturation. He is on Levophed at 4 mcg dosage to maintain his blood pressure. NECK: Tracheal secretions are clear. No bleeding is seen. HEART: Regular rhythm. CHEST: Breath sounds are heard bilaterally, diminished in the lower lung tierney with a few intermit tent rales and rhonchi. Otherwise, mostly clear in the mid lung tierney. ABDOMEN: Soft. Tolerating gastrostomy tube feedings. Bowel sounds are normally present. No local ized tenderness is felt. EXTREMITIES: Show no edema. He is paraplegic. LABORATORY DATA: Arterial blood gases done on 12/03/2016, shows pH 7.40, pCO2 of 39, pO2 109 on 60% oxygen with a PEEP of 5. At present he is on 40% inhaled oxygen concentration. CBC shows a WBC of 4600, hemoglobin 9, hematocrit 31.4, platelets decreased to 118,000. The medical chemist ry panel shows sodium 145, potassium 5.3, BUN 48, creatinine 1.35, glucose 112. Sputum culture shows acinetobacter. The urine culture shows gram-negative rods and Kristina albicans . IMPRESSION: 1. Septic shock. 2. Acinetobacter baumannii pneumonia. 3. Chronic ventilator dependent respiratory failure. 4. Acute renal failure on chronic kidney disease. 5. Urinary tract infection. 6. Chronic anemia. 7. Nephrolithiasis status post lithotripsy left kidney. 8. Status post tracheostomy. 9. Status post gastrostomy. 10. History of spinal cord injury with paraplegia. 11. History of psychiatric illness. RECOMMENDATIONS: 1. Continue long-term ventilator support. 2. Continue antibiotics per infectious disease data processing systems consultant. He is on meropenem, gentamicin and casp ofungin. 3. Continue pressor drugs to maintain the blood pressure. 4. Continue bronchodilator inhalation therapy to mobilize pulmonary secretions and improve bronchia l hygiene. 5. Continue G-tube feedings. 6. Continue deep vein thrombosis prophylaxis. Dictated By: HUMBERTO PEREZ MD, SR/QUE Conf#: [id number] DID#: [id number]
--- NOTE | 2016-12-05 15:38 | PN ---
Date/Time of Note Date/Time of Note DATE: 12/05/16 TIME: 15:34 Assessment/Plan VTE Prophylaxis VTE Prophylaxis Intervention: SCD's Lines/Catheters IV C[facility]ter Type (from [facility]): PICC Line Central line still needed: Yes Urinary Cath still in place: Yes Reason Cath still needed: urinary retention Assessment/Plan Chief Complaint/Hosp Course Patient is on a Levophed for hemodynamic support. No fever. Patient is awake alert. Assessment/Plan -Sepsis with shock due to pneumonia and recurrent urinary tract infection. Continue acute antibiotics per ID. Dr. Maciel is following in infection disease consultation. - Acute hypoxic respiratory failure, continue ventilatory support, breathing treatment. Dr. Ames is following in pulmonology consultation. - Acute on chronic encephalopathy, CT of brain is negative for acute stroke. - Acute kidney injury, Dr. Barker is following patient in nephrology consultation - Uremia - Recurrent urinary tract infection. - Neurogenic bladder with suprapubic catheter. - Left renal nephrolithiasis, S/p lithotripsy and removal of a left ureteral JJ stent by Dr. Marquez 10/29. - Status post right nephrectomy - Ventilator-dependent respiratory failure with tracheostomy. - Dysphagia with percutaneous endoscopic gastrostomy tube. - Multiple decubitus ulcers present on admission. - Cervical spine injury with paraplegia. - Bipolar disorder with psychosis. Further recommendations based on clinical course. Plan of care discussed with Dr. Barreto. Problems: Exam/Review of Systems Vital Signs Vitals Vital Signs Date Time Temp Pulse Resp B/P Pulse Ox O2 Delivery O2 Flow Rate FiO2 12/05/16 12:00 75 12/05/16 10:50 25 98 40 12/05/16 07:15 100/73 12/05/16 07:00 Mechanical Ventilator 12/05/16 04:00 98.0 Intake and Output 12/04/16 12/04/16 12/05/16 15:00 23:00 07:00 Intake Total 1090.00 ml 1650.20 ml 1150.0 ml Output Total 820 ml 920 ml 775 ml Balance 270.00 ml 730.20 ml 375.0 ml Exam Constitutional: alert, oriented Neck: other (trach), supple Respiratory: normal air movement Cardiovascular: nl pulses Gastrointestinal: non-tender, other (GT), soft Extremities: normal pulses, contracted. Skin: other (wounds) Results Result Diagram: 12/05/16 0400 12/05/16 0400 Results 24 hrs Laboratory Tests Test 12/05/16 04:00 12/05/16 07:06 White Blood Count 4.6 #L Red Blood Count 3.09 L Hemoglobin 9.0 L Hematocrit 31.4 L Mean Corpuscular Volume 101.6 H Mean Corpuscular Hemoglobin 29.1 Mean Corpuscular Hemoglobin Concent 28.7 L Red Cell Distribution Width 15.9 H Platelet Count 118 L Mean Platelet Volume 13.0 H Neutrophils % 64.2 Lymphocytes % 12.9 L Monocytes % 10.9 Eosinophils % 10.9 H Basophils % 0.4 Nucleated Red Blood Cells % 0.0 Neutrophils # 2.9 Lymphocytes # 0.6 L Monocytes # 0.5 Eosinophils # 0.5 Basophils # 0.0 Nucleated Red Blood Cells # 0.0 Sodium Level 145 H Potassium Level 5.3 H Chloride Level 108 Carbon Dioxide Level 29 Anion Gap 13 Blood Urea Nitrogen 48 H Creatinine 1.35 H Glucose Level 112 Calcium Level 8.0 L Random Gentamicin Level 10.3 Medications Medications Current Medications Ondansetron HCl (Zofran Inj) 4 mg Q6H PRN IV NAUSEA AND/OR VOMITING; Start at 22:00 Morphine Sulfate (morphine) 2 mg Q4H PRN IV PAIN LEVEL 7-10 Last administered on 12/03/16 08:45; Admin Dose 2 MG; Start 11/24/16 at 22:00 Enoxaparin Sodium (Lovenox) 30 mg DAILY SC Last administered on 12/05/16 09: 15; Admin Dose 30 MG; Start 11/25/16 at 09:00 Miscellaneous Information (Pending Santyl Order For Wound Care) This patient noriega... PRN PRN XX WOUND CARE; Start 11/25/16 at 06:00 Baclofen (Lioresal) 5 mg TID GTB Last administered on 12/05/16 13:35; Admin Dose 5 MG; Start 11/25/16 at 09:00 Zolpidem Tartrate (Ambien) 5 mg HS PRN GTB INSOMNIA Last administered on 21:46; Admin Dose 5 MG; Start 11/25/16 at 21:00 Dantrolene Sodium (Dantrium) 100 mg TID GTB Last administered on 12/05/16 13: 35; Admin Dose 100 MG; Start 11/25/16 at 10:00 Famotidine 20 mg 20 mg Q12 PO Last administered on 12/05/16 09:15; Admin Dose 20 MG; Start 11/26/16 at 21:00 Meropenem/Sodium Chloride (Merrem 500mg/50 ml(Pmx)) 50 ml @ 200 mls/hr Q8 IVPB Last administered on 12/05/16 05:25; Admin Dose 200 MLS/HR; Start 11/29/16 at 14:00 Citric Acid/ Sodium Citrate (Bicitra) 30 ml BID PO Last administered on 09:14; Admin Dose 30 ML; Start 12/01/16 at 09:00 Acetaminophen (Tylenol Liquid) 650 mg Q6H PRN GTB PAIN 1-3/10 OR ELEVATED TEMP Last administered on 12/03/16 05:09; Admin Dose 650 MG; Start 12/02/16 at 09: 30 Collagenase (Santyl) 1 applic DAILY TOP Last administered on 12/05/16 09:16; Admin Dose 1 APPLIC; Start 12/02/16 at 11:00 Collagenase 1 applic 1 applic PRN PRN TOP WOUND CARE; Start 12/02/16 at 10:00 Norepinephrine/ Dextrose (Levophed/D5W) 500 ml @ 1.87 mls/hr TITRATE IV Last administered on 12/04/16 00:43; Admin Dose 11.25 MLS/HR; Start 12/03/16 at 10 :00 Hydromorphone HCl (Dilaudid) 1 mg Q4H PRN IV PAIN LEVEL 8-10 Last administered on 12/05/16 13:35; Admin Dose 1 MG; Start 12/03/16 at 09:00 IV Flush 10 ml 10 ml PRN PRN IV IV PROTOCOL; Start 12/03/16 at 12:00 Dextrose 1,000 ml @ 70 mls/hr [id number] IV Last administered on 12/05/16 05:08 ; Admin Dose 70 MLS/HR; Start 12/04/16 at 15:00 Caspofungin/ Sodium Chloride (Cancidas/NS) 250 ml @ 250 mls/hr Q24H IVPB ; Start 10/30/17 at 20:00 Gentamicin Sulfate PER PHARMACY DOSING NOTE XX ; Start 12/04/16 at 20:00 Gentamicin Sulfate/Dextrose (Gentamicin/D5W) 108.75 ml @ 107.5 mls/hr Q48H IVPB ; Start 12/06/16 at 22:00 AISSATOU DUNCAN Dec 05, 2016 15:38
--- NOTE | 2016-12-05 17:25 | CONS ---
Date/Time of Note Date/Time of Note DATE: 12/05/16 TIME: 17:22 Assessment/Plan Assessment/Plan Additional Assessment/Plan 1. Acute kidney injury secondary to severe prerenal azotemia and possible acute tubular necrosis. 2. Acute uremia with a BUN of 107, Cr 1.99 on admission 3. Acute hyperkalemia due to BELINDA , severe metabolic acidosis s/p bicarbonate drip 4. Possible UTI causing septic shock 5. 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 6. History of neurogenic bladder with urinary retention, status post suprapubic catheter. 7. History of previous recurrent urinary tract infections. 8. 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 9. 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 10. Other medical history includes anxiety, depression, bipolar disorder, psychosis. 11. History of right nephrectomy with left renal nephrolithiasis and a left renal cyst measuring 5.3 cm in size. Plan: Na improving 145, Cr 1.35, Continue current IVF D5W at 75 cc/hr kayexalate 15 gram Po x1 for hyperkalemia, if pt agrees CT brain negative, bicitra for metabolic acidosis IV abx Meropenem, cancida, Gentamycin, renally dose it based on clearance pt previosly had a full CKD work up, no need to repeat it will continue to follow up on patient Consultation Date/Type/Reason Admit Date/Time Nov 24, 2016 at 21:00 Initial Consult Date 11/25/16 Type of Consultation: NEPHROLOGY Referring Provider: JOSÉ ANTONIO MIRZA MD 24 HR Interval Summary Free Text/Dictation Na and Cr improving, K 5.3, stable HR and BP Exam/Review of Systems Vital Signs Vitals Vital Signs Date Time Temp Pulse Resp B/P Pulse Ox O2 Delivery O2 Flow Rate FiO2 12/05/16 16:00 75 12/05/16 10:50 25 98 40 12/05/16 07:15 100/73 12/05/16 07:00 Mechanical Ventilator 12/05/16 04:00 98.0 Intake and Output 12/04/16 12/04/16 12/05/16 15:00 23:00 07:00 Intake Total 1090.00 ml 1650.20 ml 1150.0 ml Output Total 820 ml 920 ml 775 ml Balance 270.00 ml 730.20 ml 375.0 ml Exam Constitutional: alert, non-verbal ENMT: nl external ears & nose, other (+ tracheostom on ventilator ) Neck: non-tender, supple Respiratory: congested cough, crackles/rales, diminished breath sounds Cardiovascular: nl pulses, regular rate and rhythm Gastrointestinal: non-tender, soft Results Result Diagram: 12/05/16 0400 12/05/16 0400 Results 24 hrs Laboratory Tests Test 12/05/16 04:00 12/05/16 07:06 White Blood Count 4.6 #L Red Blood Count 3.09 L Hemoglobin 9.0 L Hematocrit 31.4 L Mean Corpuscular Volume 101.6 H Mean Corpuscular Hemoglobin 29.1 Mean Corpuscular Hemoglobin Concent 28.7 L Red Cell Distribution Width 15.9 H Platelet Count 118 L Mean Platelet Volume 13.0 H Neutrophils % 64.2 Lymphocytes % 12.9 L Monocytes % 10.9 Eosinophils % 10.9 H Basophils % 0.4 Nucleated Red Blood Cells % 0.0 Neutrophils # 2.9 Lymphocytes # 0.6 L Monocytes # 0.5 Eosinophils # 0.5 Basophils # 0.0 Nucleated Red Blood Cells # 0.0 Sodium Level 145 H Potassium Level 5.3 H Chloride Level 108 Carbon Dioxide Level 29 Anion Gap 13 Blood Urea Nitrogen 48 H Creatinine 1.35 H Glucose Level 112 Calcium Level 8.0 L Random Gentamicin Level 10.3 Medications Medications Current Medications Ondansetron HCl (Zofran Inj) 4 mg Q6H PRN IV NAUSEA AND/OR VOMITING; Start at 22:00 Morphine Sulfate (morphine) 2 mg Q4H PRN IV PAIN LEVEL 7-10 Last administered on 12/03/16 08:45; Admin Dose 2 MG; Start 11/24/16 at 22:00 Enoxaparin Sodium (Lovenox) 30 mg DAILY SC Last administered on 12/05/16 09: 15; Admin Dose 30 MG; Start 11/25/16 at 09:00 Miscellaneous Information (Pending Santyl Order For Wound Care) This patient noriega... PRN PRN XX WOUND CARE; Start 11/25/16 at 06:00 Baclofen (Lioresal) 5 mg TID GTB Last administered on 12/05/16 13:35; Admin Dose 5 MG; Start 11/25/16 at 09:00 Zolpidem Tartrate (Ambien) 5 mg HS PRN GTB INSOMNIA Last administered on 21:46; Admin Dose 5 MG; Start 11/25/16 at 21:00 Dantrolene Sodium (Dantrium) 100 mg TID GTB Last administered on 12/05/16 13: 35; Admin Dose 100 MG; Start 11/25/16 at 10:00 Famotidine 20 mg 20 mg Q12 PO Last administered on 12/05/16 09:15; Admin Dose 20 MG; Start 11/26/16 at 21:00 Meropenem/Sodium Chloride (Merrem 500mg/50 ml(Pmx)) 50 ml @ 200 mls/hr Q8 IVPB Last administered on 12/05/16 14:26; Admin Dose 200 MLS/HR; Start 11/29/16 at 14:00 Citric Acid/ Sodium Citrate (Bicitra) 30 ml BID PO Last administered on 09:14; Admin Dose 30 ML; Start 12/01/16 at 09:00 Acetaminophen (Tylenol Liquid) 650 mg Q6H PRN GTB PAIN 1-3/10 OR ELEVATED TEMP Last administered on 12/03/16 05:09; Admin Dose 650 MG; Start 12/02/16 at 09: 30 Collagenase (Santyl) 1 applic DAILY TOP Last administered on 12/05/16 09:16; Admin Dose 1 APPLIC; Start 12/02/16 at 11:00 Collagenase 1 applic 1 applic PRN PRN TOP WOUND CARE; Start 12/02/16 at 10:00 Norepinephrine/ Dextrose (Levophed/D5W) 500 ml @ 1.87 mls/hr TITRATE IV Last administered on 12/04/16 00:43; Admin Dose 11.25 MLS/HR; Start 12/03/16 at 10 :00 Hydromorphone HCl (Dilaudid) 1 mg Q4H PRN IV PAIN LEVEL 8-10 Last administered on 12/05/16 13:35; Admin Dose 1 MG; Start 12/03/16 at 09:00 IV Flush 10 ml 10 ml PRN PRN IV IV PROTOCOL; Start 12/03/16 at 12:00 Dextrose 1,000 ml @ 70 mls/hr [id number] IV Last administered on 12/05/16t 05:08 ; Admin Dose 70 MLS/HR; Start 12/04/16 at 15:00 Caspofungin/ Sodium Chloride (Cancidas/NS) 250 ml @ 250 mls/hr Q24H IVPB ; Start 12/05/16 at 20:00 Gentamicin Sulfate PER PHARMACY DOSING NOTE XX ; Start 12/04/16 at 20:00 Gentamicin Sulfate/Dextrose (Gentamicin/D5W) 108.75 ml @ 107.5 mls/hr Q48H IVPB ; Start 12/06/16 at 22:00 TIARA CISNEROS MD Dec 05, 2016 17:25
[2016-12-05] MEDS ORDERED: NA POLYST SULFON 15 GM/60 ML BTL PO ONE (17:30)
[2016-12-05] MEDS: CASPOFUNGIN 50 MG in SOD CHLORIDE 0.9% 250 ML IVPB SCH (20:39)
[2016-12-05] MEDS: ZOLPIDEM 5 MG TAB GTB PRN (21:33)
[2016-12-06] VITALS (58 sets, daily range): BP systolic 84–168; BP diastolic 53–122; PULSE 60–100; RESP 13–30
[2016-12-06] MEDS: IPRATROPIUM (HFA) 12.9 GM INHALER INH SCH ×5 (01:00→20:45)
[2016-12-06] MEDS: LEVALBUTEROL (HFA) 15 GM INHALER INH SCH ×5 (01:00→20:45)
[2016-12-06] MEDS: HYDROmorphONE 0.5 MG/0.5 ML SYG IV PRN ×5 (01:24→21:12)
[2016-12-06] MEDS: MEROPENEM 500MG/50 ML (PMX) 50 ML IVPB SCH (05:53)
--- NOTE | 2016-12-06 06:42 | PN ---
DATE: 12/05/2016 SUBJECTIVE: No acute events overnight. No fevers. The patient is awake. Denies pain, looks comfo rtable. VITAL SIGNS: Temperature 98, pulse 90, respirations 19, blood pressure 100/73, saturation 98 on 40 F IO2. LABORATORY DATA: WBC 4.6, H and H 9 and 31.4, platelets 118, neutrophils 64.2. BUN 48, creatinine 1.35. MICROBIOLOGY: Blood cultures since admission negative. Urine culture growing yeast, not Kristina al bicans, and multidrug resistant Pseudomonas aeruginosa, susceptible to amikacin, gentamicin, tobramy rekha. Sputum culture grew Acinetobacter baumannii susceptible to gentamicin and tobramycin. DIAGNOSTICS: Chest x-ray on 12/03/2016 revealed small bilateral pleural effusions and pulmonary audie ma. Indwelling trach, PICC line, suprapubic catheter. ANTIMICROBIALS: The patient is on: 1. Cancidas. 2. Gentamicin IV. 3. Meropenem day #7. PHYSICAL EXAMINATION: GENERAL: This is a chronically ill-appearing, quadriplegic, middle-aged man who is in no distress. HEENT: Head atraumatic, normocephalic. Sclerae anicteric. Buccal mucosa dry. NECK: Supple. Tracheostomy present. CHEST: Rise symmetrical. Breath sounds diminished to bases. HEART: S1, S2. ABDOMEN: Soft, bowel tones present. EXTREMITIES: Wasted, contractured. ASSESSMENT: 1. Septic shock. 2. Recurrent multidrug resistant urinary tract infection. 3. Acute on chronic respiratory failure secondary to fluid overload and pneumonia. 4. Acute on chronic kidney disease. 5. History of nephrolithiasis with JJ stent being removed on last admission by Dr. Marquez. 6. Neutropenic bladder with chronic suprapubic catheter. 7. History of treated scabies. PLAN: The patient remains clinically stable, still on low dose of Levophed drip, covered with appro priate antibiotics. Continue present care. Follow recommendation of subspecialists. Per Urology, the patient has recurrent urinary tract infection because of the stones in his kidneys, and recommen ded to treat symptomatically. Dictated By: REGINALDO CHERY REGISTERED NURSE SURGICAL SERVICES for [facility] Conf#: [id number] DID#: [id number]
--- NOTE | 2016-12-06 08:52 | CONS ---
Date/Time of Note Date/Time of Note DATE: 12/06/16 TIME: 08:51 Assessment/Plan Assessment/Plan Additional Assessment/Plan 1. Acute kidney injury secondary to severe prerenal azotemia and possible acute tubular necrosis. 2. Acute uremia with a BUN of 107, Cr 1.99 on admission 3. Acute hyperkalemia due to BELINDA , severe metabolic acidosis s/p bicarbonate drip 4. Possible UTI causing septic shock 5. 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 6. History of neurogenic bladder with urinary retention, status post suprapubic catheter. 7. History of previous recurrent urinary tract infections. 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 9. 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 10. Other medical history includes anxiety, depression, bipolar disorder, psychosis. 11. History of right nephrectomy with left renal nephrolithiasis and a left renal cyst measuring 5.3 cm in size. Plan: Na improving 144, Cr 1.31, Continue current IVF D5W at 75 cc/hr kayexalate 15 gram Po x1 for hyperkalemia, if pt agrees CT brain negative, bicitra for metabolic acidosis IV abx Meropenem, cancida, Gentamycin, renally dose it based on clearance pt previosly had a full CKD work up, no need to repeat it will continue to follow up on patient Consultation Date/Type/Reason Admit Date/Time Nov 24, 2016 at 21:00 Initial Consult Date 11/25/16 Type of Consultation: NEPHROLOGY Referring Provider: JOSÉ ANTONIO MIRZA MD 24 HR Interval Summary Free Text/Dictation pt remained in ICU, HR in 100-110s. BP stable, afebrile Exam/Review of Systems Vital Signs Vitals Vital Signs Date Time Temp Pulse Resp B/P Pulse Ox O2 Delivery O2 Flow Rate FiO2 12/06/16 08:14 89 19 96 30 12/06/16 08:00 98.5 110/75 Mechanical Ventilator Intake and Output 12/05/16 12/05/16 12/06/16 15:00 23:00 07:00 Intake Total 1034.36 ml 1196.22 ml 1090 ml Output Total 1000 ml 1000 ml 730 ml Balance 34.36 ml 196.22 ml 360 ml Exam Constitutional: alert, non-verbal ENMT: nl external ears & nose, other (+ tracheostom on ventilator ) Neck: non-tender, supple Respiratory: congested cough, crackles/rales, diminished breath sounds Cardiovascular: nl pulses, regular rate and rhythm Gastrointestinal: non-tender, soft Results Result Diagram: 12/06/16 0400 12/06/16 0400 Results 24 hrs Laboratory Tests Test 12/06/16 04:00 White Blood Count 3.4 #L Red Blood Count 3.01 L Hemoglobin 9.0 L Hematocrit 30.2 L Mean Corpuscular Volume 100.3 Mean Corpuscular Hemoglobin 29.9 Mean Corpuscular Hemoglobin Concent 29.8 L Red Cell Distribution Width 15.4 H Platelet Count 119 L Mean Platelet Volume 13.0 H Neutrophils % 64.4 Lymphocytes % 14.8 L Monocytes % 9.5 Eosinophils % 10.7 H Basophils % 0.3 Nucleated Red Blood Cells % 0.0 Neutrophils # 2.2 Lymphocytes # 0.5 L Monocytes # 0.3 Eosinophils # 0.4 Basophils # 0.0 Nucleated Red Blood Cells # 0.0 Sodium Level 144 Potassium Level 5.2 H Chloride Level 107 Carbon Dioxide Level 29 Anion Gap 13 Blood Urea Nitrogen 40 H Creatinine 1.31 H Glucose Level 94 Calcium Level 8.2 L Medications Medications Current Medications Ondansetron HCl (Zofran Inj) 4 mg Q6H PRN IV NAUSEA AND/OR VOMITING; Start at 22:00 Morphine Sulfate (morphine) 2 mg Q4H PRN IV PAIN LEVEL 7-10 Last administered on 12/03/16 08:45; Admin Dose 2 MG; Start 11/24/16 at 22:00 Enoxaparin Sodium (Lovenox) 30 mg DAILY SC Last administered on 12/05/16 09: 15; Admin Dose 30 MG; Start 11/25/16 at 09:00 Miscellaneous Information (Pending Santyl Order For Wound Care) This patient noriega... PRN PRN XX WOUND CARE; Start 11/25/16 at 06:00 Baclofen (Lioresal) 5 mg TID GTB Last administered on 12/05/16 20:41; Admin Dose 5 MG; Start 11/25/16 at 09:00 Zolpidem Tartrate (Ambien) 5 mg HS PRN GTB INSOMNIA Last administered on 21:33; Admin Dose 5 MG; Start 11/25/16 at 21:00 Dantrolene Sodium (Dantrium) 100 mg TID GTB Last administered on 12/05/16 20: 45; Admin Dose 100 MG; Start 11/25/16 at 10:00 Famotidine 20 mg 20 mg Q12 PO Last administered on 12/05/16 20:41; Admin Dose 20 MG; Start 11/26/16 at 21:00 Meropenem/Sodium Chloride (Merrem 500mg/50 ml(Pmx)) 50 ml @ 200 mls/hr Q8 IVPB Last administered on 12/06/16 05:53; Admin Dose 200 MLS/HR; Start 11/29/16 at 14:00 Citric Acid/ Sodium Citrate (Bicitra) 30 ml BID PO Last administered on 20:41; Admin Dose 30 ML; Start 12/01/16 at 09:00 Acetaminophen (Tylenol Liquid) 650 mg Q6H PRN GTB PAIN 1-3/10 OR ELEVATED TEMP Last administered on 12/03/16 05:09; Admin Dose 650 MG; Start 12/02/16 at 09: 30 Collagenase (Santyl) 1 applic DAILY TOP Last administered on 12/05/16 09:16; Admin Dose 1 APPLIC; Start 12/02/16 at 11:00 Collagenase 1 applic 1 applic PRN PRN TOP WOUND CARE; Start 12/02/16 at 10:00 Norepinephrine/ Dextrose (Levophed/D5W) 500 ml @ 1.87 mls/hr TITRATE IV Last administered on 12/05/16 19:28; Admin Dose 3.75 MLS/HR; Start 12/03/16 at 10: 00 Hydromorphone HCl (Dilaudid) 1 mg Q4H PRN IV PAIN LEVEL 8-10 Last administered on 12/06/16 05:53; Admin Dose 1 MG; Start 12/03/16 at 09:00 IV Flush 10 ml 10 ml PRN PRN IV IV PROTOCOL; Start 12/03/16 at 12:00 Dextrose 1,000 ml @ 70 mls/hr [id number] IV Last administered on 12/05/16 20:38 ; Admin Dose 70 MLS/HR; Start 12/04/16 at 15:00 Caspofungin/ Sodium Chloride (Cancidas/NS) 250 ml @ 250 mls/hr Q24H IVPB Last administered on 12/05/16t 20:39; Admin Dose 250 MLS/HR; Start 12/05/16 at 20: 00 Gentamicin Sulfate PER PHARMACY DOSING NOTE XX ; Start 12/04/16 at 20:00 Gentamicin Sulfate/Dextrose (Gentamicin/D5W) 108.75 ml @ 107.5 mls/hr Q48H IVPB ; Start 12/06/16 at 22:00 TIARA CISNEROS MD Dec 06, 2016 08:52
[2016-12-06] MEDS ORDERED: NA POLYST SULFON 15 GM/60 ML BTL PO ONE ×2 (09:00→15:00)
[2016-12-06] MEDS: DANTROLENE 25 MG CAP GTB SCH ×3 (09:53→20:00)
[2016-12-06] MEDS: FAMOTIDINE 20 MG TAB PO SCH ×2 (09:53→20:00)
[2016-12-06] MEDS: CITRIC ACID/SODIUM CITRATE 15 ML CUP PO SCH ×2 (09:53→20:00)
[2016-12-06] MEDS: DEXTROSE 5% 1,000 ML IV SCH ×2 (09:54→19:49)
[2016-12-06] MEDS: ENOXAPARIN 30 MG/0.3 ML SYG SC SCH (09:55)
[2016-12-06] MEDS: COLLAGENASE 30 GM TUBE TOP SCH (09:55)
[2016-12-06] MEDS: BACLOFEN 10 MG TAB GTB SCH ×3 (09:55→20:00)
--- NOTE | 2016-12-06 11:15 | PN ---
DATE: 12/06/2016 SUBJECTIVE: The patient is awake, responsive. He is on continuous ventilator support. His breathi ng appears comfortable without any apparent respiratory distress. His blood pressure is quite stabl e now and is weaned off Levophed. PHYSICAL EXAMINATION: VITAL SIGNS: Most recent vital signs show a blood pressure of 104/74, pulse rate of 79, respiration s 21, pulse oximetry 94% saturation on 30% inhaled oxygen concentration. His temperature is 98.5. ____ shows clear secretions. No bleeding is seen. HEART: Regular sinus rhythm. CHEST: Breath sounds are heard bilaterally, diminished in both the lower lung tierney with a few int ermittent rales and rhonchi. ABDOMEN: Soft, nondistended, tolerating gastrostomy tube feedings. Bowel sounds are present. EXTREMITIES: Show no edema. He is paraplegic. LABORATORY DATA: Show WBC count down to 3400, hemoglobin 9, hematocrit 30.2, platelets decreased to 119,000. The chemistry panel shows glucose 94, sodium 144, potassium 5.2, BUN is 40, creatinine 1. 31. BUN and creatinine have shown gradual decrease. IMPRESSION: 1. Sepsis. 2. ____ pneumonia. 3. Chronic ventilator dependent respiratory failure. 4. Acute renal failure on chronic kidney disease. 5. Urinary tract infection. 6. Chronic anemia. 7. ____ status post lithotripsy left kidney. 8. Status post catheter. 9. Status post gastrostomy. 9. History of spinal cord injury with paraplegia. 10. History of psychiatric illness. RECOMMENDATIONS: 1. Continue long-term ventilator support. 2. Continue antibiotics per infectious disease national sales consultant. At present he is on meropenem, gentamyc in and caspofungin. 3. Continue bronchodilator inhalation therapy to mobilize pulmonary secretions and improve bronchia l hygiene. 4. Continue G-tube feedings. 5. Continue deep vein thrombosis prophylaxis. Dictated By: HUMBERTO PEREZ MD SR/QUE Conf#: [id number] DID#: [id number]
--- NOTE | 2016-12-06 14:36 | PN ---
Date/Time of Note Date/Time of Note DATE: 12/06/16 TIME: 14:35 Assessment/Plan VTE Prophylaxis VTE Prophylaxis Intervention: SCD's Lines/Catheters IV C[facility]ter Type (from [facility]): PICC Line Central line still needed: Yes Reason Cath still needed: urinary retention Assessment/Plan Chief Complaint/Hosp Course Patient is weaned off Levophed last night. Mild hyperkalemia will give Kayexalate. The patient's continues to be hemodynamically stable may be transferred to telemetry in 12 hours. Assessment/Plan -Sepsis with shock due to pneumonia and recurrent urinary tract infection. Continue acute antibiotics per ID. Dr. Maciel is following in infection disease consultation. - Acute hypoxic respiratory failure, continue ventilatory support, breathing treatment. Dr. Ames is following in pulmonology consultation. - Acute on chronic encephalopathy, CT of brain is negative for acute stroke. - Acute kidney injury, Dr. Barker is following patient in nephrology consultation - Uremia - Recurrent urinary tract infection. - Neurogenic bladder with suprapubic catheter. - Left renal nephrolithiasis, S/p lithotripsy and removal of a left ureteral JJ stent by Dr. Marquez 10/29. - Status post right nephrectomy - Ventilator-dependent respiratory failure with tracheostomy. - Dysphagia with percutaneous endoscopic gastrostomy tube. - Multiple decubitus ulcers present on admission. - Cervical spine injury with paraplegia. - Bipolar disorder with psychosis. Further recommendations based on clinical course. Plan of care discussed with Dr. Barreto. Problems: Exam/Review of Systems Vital Signs Vitals Vital Signs Date Time Temp Pulse Resp B/P Pulse Ox O2 Delivery O2 Flow Rate FiO2 12/06/16 13:49 103 24 94 30 12/06/16 12:00 98.6 132/94 Mechanical Ventilator Intake and Output 12/05/16 12/05/16 12/06/16 15:00 23:00 07:00 Intake Total 1034.36 ml 1196.22 ml 1090 ml Output Total 1000 ml 1000 ml 730 ml Balance 34.36 ml 196.22 ml 360 ml Exam Constitutional: alert, oriented Neck: other (trach), supple Respiratory: normal air movement Cardiovascular: nl pulses Gastrointestinal: non-tender, other (GT), soft Extremities: normal pulses, contracted. Skin: other (wounds) Results Result Diagram: 12/06/160 10/31/17 0400 Results 24 hrs Laboratory Tests Test 12/06/16 04:00 White Blood Count 3.4 #L Red Blood Count 3.01 L Hemoglobin 9.0 L Hematocrit 30.2 L Mean Corpuscular Volume 100.3 Mean Corpuscular Hemoglobin 29.9 Mean Corpuscular Hemoglobin Concent 29.8 L Red Cell Distribution Width 15.4 H Platelet Count 119 L Mean Platelet Volume 13.0 H Neutrophils % 64.4 Lymphocytes % 14.8 L Monocytes % 9.5 Eosinophils % 10.7 H Basophils % 0.3 Nucleated Red Blood Cells % 0.0 Neutrophils # 2.2 Lymphocytes # 0.5 L Monocytes # 0.3 Eosinophils # 0.4 Basophils # 0.0 Nucleated Red Blood Cells # 0.0 Sodium Level 144 Potassium Level 5.2 H Chloride Level 107 Carbon Dioxide Level 29 Anion Gap 13 Blood Urea Nitrogen 40 H Creatinine 1.31 H Glucose Level 94 Calcium Level 8.2 L Medications Medications Current Medications Ondansetron HCl (Zofran Inj) 4 mg Q6H PRN IV NAUSEA AND/OR VOMITING; Start at 22:00 Morphine Sulfate (morphine) 2 mg Q4H PRN IV PAIN LEVEL 7-10 Last administered on 12/03/16 08:45; Admin Dose 2 MG; Start 11/24/16 at 22:00 Enoxaparin Sodium (Lovenox) 30 mg DAILY SC Last administered on 12/06/16 09: 55; Admin Dose 30 MG; Start 11/25/16 at 09:00 Miscellaneous Information (Pending [facility] Order For Wound Care) This patient noriega... PRN PRN XX WOUND CARE; Start 11/25/16 at 06:00 Baclofen (Lioresal) 5 mg TID GTB Last administered on 12/06/16 09:55; Admin Dose 5 MG; Start 11/25/16 at 09:00 Zolpidem Tartrate (Ambien) 5 mg HS PRN GTB INSOMNIA Last administered on 21:33; Admin Dose 5 MG; Start 11/25/16 at 21:00 Dantrolene Sodium (Dantrium) 100 mg TID GTB Last administered on 12/06/16 09: 53; Admin Dose 100 MG; Start 11/25/16 at 10:00 Famotidine (Pepcid) 20 mg Q12 PO Last administered on 12/06/16 09:53; Admin Dose 20 MG; Start 11/26/16 at 21:00 Citric Acid/ Sodium Citrate (Bicitra) 30 ml BID PO Last administered on 09:53; Admin Dose 30 ML; Start 12/01/16 at 09:00 Acetaminophen (Tylenol Liquid) 650 mg Q6H PRN GTB PAIN 1-3/10 OR ELEVATED TEMP Last administered on 12/03/16 05:09; Admin Dose 650 MG; Start 12/02/16 at 09: 30 Collagenase (Santyl) 1 applic DAILY TOP Last administered on 12/06/16 09:55; Admin Dose 1 APPLIC; Start 12/02/16 at 11:00 Collagenase 1 applic 1 applic PRN PRN TOP WOUND CARE; Start 12/02/16 at 10:00 Norepinephrine/ Dextrose (Levophed/D5W) 500 ml @ 1.87 mls/hr TITRATE IV Last administered on 12/05/16 19:28; Admin Dose 3.75 MLS/HR; Start 12/03/16 at 10: 00 Hydromorphone HCl (Dilaudid) 1 mg Q4H PRN IV PAIN LEVEL 8-10 Last administered on 12/06/16 12:01; Admin Dose 1 MG; Start 12/03/16 at 09:00 IV Flush 10 ml 10 ml PRN PRN IV IV PROTOCOL; Start 12/03/16 at 12:00 Dextrose 1,000 ml @ 70 mls/hr [id number] IV Last administered on 12/05/16 20:38 ; Admin Dose 70 MLS/HR; Start 12/04/16 at 15:00 Caspofungin/ Sodium Chloride (Cancidas/NS) 250 ml @ 250 mls/hr Q24H IVPB Last administered on 12/05/16 20:39; Admin Dose 250 MLS/HR; Start 12/05/16 at 20: 00 Gentamicin Sulfate PER PHARMACY DOSING NOTE XX ; Start 12/04/16 at 20:00 Gentamicin Sulfate/Dextrose (Gentamicin/D5W) 108.75 ml @ 107.5 mls/hr Q48H IVPB ; Start 12/06/16 at 22:00 AISSATOU DUNCAN Dec 06, 2016 14:36
--- NOTE | 2016-12-06 15:08 | PN ---
DATE: 12/06/2016 SUBJECTIVE: No events overnight. The patient is alert, feels good. Denies pain. He is off presso rs. VITAL SIGNS: Temperature 98.6, pulse 81, respirations 22, blood pressure 132/94, saturation 95 on t he vent. WBC 3.4, H and H of 9 and 30.2, platelets 119, neutrophils 64.4. BUN 40, creatinine 1.31. MICROBIOLOGY: A urine culture grew yeast, not Kristina albicans, and Pseudomonas aeruginosa. Sputum culture grew Acinetobacter baumannii. INDWELLINGS: Trach, suprapubic catheter. ANTIMICROBIALS: 1. The patient is on gentamicin. 2. Cancidas. 3. Meropenem. PHYSICAL EXAMINATION: GENERAL: This is a well-developed, chronically ill-appearing, middle-aged man who is in no distress . HEENT: Head atraumatic, normocephalic. Sclerae anicteric. Buccal mucosa dry. NECK: Supple. Tracheostomy present. CHEST: Rise symmetrical. Breath sounds diminished to bases. HEART: S1, S2. ABDOMEN: Soft, bowel tones present. EXTREMITIES: Without cyanosis. ASSESSMENT: 1. Resolving sepsis status post shock. 2. Multidrug resistant urinary tract infection, recurrent. 3. Acute on chronic kidney disease. 4. History of bilateral JJ stents placement for nephrolithiasis and being removed on previous admis tha by Dr. Marquez. 5. Neurogenic bladder. 6. History of nephrectomy. 7. History of scabies, treated. PLAN: The patient remains stable. We are going to discontinue meropenem. Continue gentamicin and Cancidas. Continue management as per primary team and consultants. Dictated By: REGINALDO CHERY UTILITY SPRAY OPERATOR for [employer]GU[employer]/NTS Conf#: [id number] DID#: [id number] CC: DANAY MUIR MD;*EndCC*
--- NOTE | 2016-12-06 15:08 | PN ---
DATE: 12/06/2016 SUBJECTIVE: No events overnight. The patient is alert, feels good. Denies pain. He is off presso rs. VITAL SIGNS: Temperature 98.6, pulse 81, respirations 22, blood pressure 132/94, saturation 95 on t he vent. WBC 3.4, H and H of 9 and 30.2, platelets 119, neutrophils 64.4. BUN 40, creatinine 1.31. MICROBIOLOGY: A urine culture grew yeast, not Kristina albicans, and Pseudomonas aeruginosa. Sputum culture grew Acinetobacter baumannii. INDWELLINGS: Trach, suprapubic catheter. ANTIMICROBIALS: 1. The patient is on gentamicin. 2. Cancidas. 3. Meropenem. PHYSICAL EXAMINATION: GENERAL: This is a well-developed, chronically ill-appearing, middle-aged man who is in no distress . HEENT: Head atraumatic, normocephalic. Sclerae anicteric. Buccal mucosa dry. NECK: Supple. Tracheostomy present. CHEST: Rise symmetrical. Breath sounds diminished to bases. HEART: S1, S2. ABDOMEN: Soft, bowel tones present. EXTREMITIES: Without cyanosis. ASSESSMENT: 1. Resolving sepsis status post shock. 2. Multidrug resistant urinary tract infection, recurrent. 3. Acute on chronic kidney disease. 4. History of bilateral JJ stents placement for nephrolithiasis and being removed on previous admis tha by Dr. Marquez. 5. Neurogenic bladder. 6. History of nephrectomy. 7. History of scabies, treated. PLAN: The patient remains stable. We are going to discontinue meropenem. Continue gentamicin and Cancidas. Continue management as per primary team and consultants. Dictated By: REGINALDO CHERY CART ATTENDANT for [employer] ARGUET[employer]/NTS Conf#: [id number] DID#: [id number] CC: DANAY MUIR MD;*EndCC*
--- NOTE | 2016-12-06 15:08 | PN ---
DATE: 12/06/2016 SUBJECTIVE: No events overnight. The patient is alert, feels good. Denies pain. He is off presso rs. VITAL SIGNS: Temperature 98.6, pulse 81, respirations 22, blood pressure 132/94, saturation 95 on t he vent. WBC 3.4, H and H of 9 and 30.2, platelets 119, neutrophils 64.4. BUN 40, creatinine 1.31. MICROBIOLOGY: A urine culture grew yeast, not Kristina albicans, and Pseudomonas aeruginosa. Sputum culture grew Acinetobacter baumannii. INDWELLINGS: Trach, suprapubic catheter. ANTIMICROBIALS: 1. The patient is on gentamicin. 2. Cancidas. 3. Meropenem. PHYSICAL EXAMINATION: GENERAL: This is a well-developed, chronically ill-appearing, middle-aged man who is in no distress . HEENT: Head atraumatic, normocephalic. Sclerae anicteric. Buccal mucosa dry. NECK: Supple. Tracheostomy present. CHEST: Rise symmetrical. Breath sounds diminished to bases. HEART: S1, S2. ABDOMEN: Soft, bowel tones present. EXTREMITIES: Without cyanosis. ASSESSMENT: 1. Resolving sepsis status post shock. 2. Multidrug resistant urinary tract infection, recurrent. 3. Acute on chronic kidney disease. 4. History of bilateral JJ stents placement for nephrolithiasis and being removed on previous admis tha by Dr. Marquez. 5. Neurogenic bladder. 6. History of nephrectomy. 7. History of scabies, treated. PLAN: The patient remains stable. We are going to discontinue meropenem. Continue gentamicin and Cancidas. Continue management as per primary team and consultants. Dictated By: REGINALDO CHERY GLUE JOINTER FEEDER for [employer] ARGU[employer]/NTS Conf#: [id number] DID#: [id number] CC: DANAY MUIR MD;*EndCC*
[2016-12-06] MEDS: CASPOFUNGIN 50 MG in SOD CHLORIDE 0.9% 250 ML IVPB SCH (19:59)
[2016-12-06] MEDS ORDERED: ALTEPLASE (CATHFLO) 2 MG INJ CATHETER PRN (20:30)
[2016-12-06] MEDS ORDERED: GENTAMICIN 350 MG in DEXTROSE 5% 100 ML IVPB SCH (22:00)
[2016-12-06] MEDS: ZOLPIDEM 5 MG TAB GTB PRN (22:02)
--- NOTE | 2016-12-07 09:09 | DS ---
Date/Time of Note Date/Time of Note DATE: 12/07/16 TIME: 09:07 Discharge Summary Admission/Discharge Info Admit Date/Time Nov 24, 2016 at 21:00 Discharge Date/Time Dec 07, 2016 at 02:19 Patient Condition: Stable Hx of Present Illness The patient is 41-year-old male with paraplegia due to cervical spine injury, ventilator dependent respiratory failure, dysphagia with G-tube, bipolar disorder with psychosis, and multiple decubitus ulcers. Patient has neurogenic bladder with suprapubic catheter, patient also had on the left kidney with multiple renal stones status post lithotripsy and removal of a left ureteral JJ stent at last admission by Dr. Marquez, patient is status post right nephrectomy. Patient is completed treatment for a urinary tract infection and was discharged to [facility] facility. However patient noted to have elevated BUN and creatinine on routine labs and was sent to emergency room from [facility]. Evaluation in the emergency room BUN was 107 creatinine is about 2. Patient also noted to have leukocyte esterase and on urinalysis. Patient was started on broad-spectrum antibiotics and admitted for further evaluation and management. Patient complains of a lower quadrant pain however denies any fever chills denies nausea vomiting denies shortness of breath denies chest pain. Hospital Course Patient is weaned off Levophed last night. Mild hyperkalemia will give Kayexalate. The patient's continues to be hemodynamically stable may be transferred to telemetry in 12 hours. Pt transferred to [facility]. Assessment/Plan -Sepsis with shock due to pneumonia and recurrent urinary tract infection. Continue acute antibiotics per ID. Dr. Maciel is following in infection disease consultation. - Acute hypoxic respiratory failure, continue ventilatory support, breathing treatment. Dr. Ames is following in pulmonology consultation. - Acute on chronic encephalopathy, CT of brain is negative for acute stroke. - Acute kidney injury, Dr. Barker is following patient in nephrology consultation - Uremia - Recurrent urinary tract infection. - Neurogenic bladder with suprapubic catheter. - Left renal nephrolithiasis, S/p lithotripsy and removal of a left ureteral JJ stent by Dr. Marquez 10/29. - Status post right nephrectomy - Ventilator-dependent respiratory failure with tracheostomy. - Dysphagia with percutaneous endoscopic gastrostomy tube. - Multiple decubitus ulcers present on admission. - Cervical spine injury with paraplegia. - Bipolar disorder with psychosis. Further recommendations based on clinical course. Plan of care discussed with Dr. Barreto. Home Meds Reported Medications Epoetin Prince (Procrit) 10,000 Unit/1 Ml Vial, 91526 UNIT IJ QMON, VIAL 11/24/16 Gabapentin* (Gabapentin*) 100 Mg Capsule, 100 MG GTB TID, #90 CAP 11/24/16 Acetaminophen* (Tylenol*) 500 Mg Tab, 1000 MG PO Q4H Y for PAIN 4-610, TAB 11/24/16 Fe Fumarate/Nenita/FA/Bcomp,C (Nephron FA Tablet) 1 Each Tablet, 1 EACH GTB DAILY , TAB 10/20/16 Cran/Vitc/Mannose/Inulin/Brom (Uti-Stat Liquid) 3,875 Mg/30 Ml Liquid, 3875 MG GTB BID 10/01/16 Zinc Sulfate* (Zinc Sulfate*) 220 Mg Tablet, 220 MG GTB DAILY, TAB 10/01/16 Risperidone* (Risperdal* Liq) 1 Mg/Ml Solution, 1 MG GTB Q9AM, ML 10/01/16 Pantoprazole* (Protonix*) 40 Mg Tablet.dr, 40 MG GTB DAILY, TAB 10/01/16 Hydrocodone/Acetaminophen ([place] 5-325 Tablet) 1 Each Tablet, 1 EACH GTB BID Y for SEVERE PAIN LEVEL 7-10, TAB 10/01/16 Enoxaparin Sodium* (Lovenox*) 30 Mg/0.3 Ml Disp.syrin, 30 MG SQ DAILY, SYR 10/01/16 Na Phos,M-B/Na Phos,Di-Ba (ENEMA READY TO USE) 135 Ml Enema, 135 ML RC EVERY TWO DAYS Y for CONSTIPATION, ENEMA 10/01/16 Ferrous Sulfate* (Ferrous Sulfate*) 220 Mg/5 Ml Solution, 330 MG GTB DAILY, ML 10/01/16 Bisacodyl* (Bisacodyl*) 10 Mg Supp, 10 MG [place] Q24H Y for CONSTIPATION, SUPP 10/01/16 Docusate Sodium* (Colace*) 100 Mg Capsule, 200 MG GTB QHS, #60 CAP 10/01/16 Citric Acid/Sodium Citrate* (Bicitra* (PEDIATRIC)) 1 Meq/Ml Soln, 10 MEQ GTB BID for 30 Days, BOTTLE 10/01/16 Albuterol Sulfate* (Albuterol Sulfate* Neb) 0.083%-3 Ml Neb, 2.5 MG NEB Q6 Y for WHEEZING AND SOB, #30 VIAL 10/01/16 Albuterol Sulfate* (Albuterol Sulfate* Neb) 0.083%-3 Ml Neb, 2.5 MG NEB Q3H Y for WHEEZING AND SOB, #30 VIAL 05/03/16 Magnesium Hydroxide* (Milk Of Magnesia*) 400 Mg/5 Ml Oral.susp, 30 ML GTB QHS Y for CONSTIPATION, ML 04/16/15 Acetaminophen* (Tylenol*) 325 Mg Tablet, 650 MG GTB Q4H Y for MILD PAIN LEVEL 1- 3, TAB AND FOR TRACH TUBE CHANGE PRN 04/16/15 Primary Care Provider MD PERLA Gamez SVETLANA Dec 07, 2016 09:09
--- NOTE | 2016-12-07 09:09 | DS ---
Date/Time of Note Date/Time of Note DATE: 12/07/16 TIME: 09:07 Discharge Summary Admission/Discharge Info Admit Date/Time Nov 24, 2016 at 21:00 Discharge Date/Time Dec 07, 2016 at 02:19 Patient Condition: Stable Hx of Present Illness The patient is 41-year-old male with paraplegia due to cervical spine injury, ventilator dependent respiratory failure, dysphagia with G-tube, bipolar disorder with psychosis, and multiple decubitus ulcers. Patient has neurogenic bladder with suprapubic catheter, patient also had on the left kidney with multiple renal stones status post lithotripsy and removal of a left ureteral JJ stent at last admission by Dr. Marquez, patient is status post right nephrectomy. Patient is completed treatment for a urinary tract infection and was discharged to assisted facility. However patient noted to have elevated BUN and creatinine on routine labs and was sent to emergency room from [facility] care. Evaluation in the emergency room BUN was 107 creatinine is about 2. Patient also noted to have leukocyte esterase and on urinalysis. Patient was started on broad-spectrum antibiotics and admitted for further evaluation and management. Patient complains of a lower quadrant pain however denies any fever chills denies nausea vomiting denies shortness of breath denies chest pain. Hospital Course Patient is weaned off Levophed last night. Mild hyperkalemia will give Kayexalate. The patient's continues to be hemodynamically stable may be transferred to telemetry in 12 hours. Pt transferred to [facility]. Assessment/Plan -Sepsis with shock due to pneumonia and recurrent urinary tract infection. Continue acute antibiotics per ID. Dr. Maciel is following in infection disease consultation. - Acute hypoxic respiratory failure, continue ventilatory support, breathing treatment. Dr. Ames is following in pulmonology consultation. - Acute on chronic encephalopathy, CT of brain is negative for acute stroke. - Acute kidney injury, Dr. Barker is following patient in nephrology consultation - Uremia - Recurrent urinary tract infection. - Neurogenic bladder with suprapubic catheter. - Left renal nephrolithiasis, S/p lithotripsy and removal of a left ureteral JJ stent by Dr. Marquez 10/29. - Status post right nephrectomy - Ventilator-dependent respiratory failure with tracheostomy. - Dysphagia with percutaneous endoscopic gastrostomy tube. - Multiple decubitus ulcers present on admission. - Cervical spine injury with paraplegia. - Bipolar disorder with psychosis. Further recommendations based on clinical course. Plan of care discussed with Dr. Barreto. Home Meds Reported Medications Epoetin Prince (Procrit) 10,000 Unit/1 Ml Vial, 51743 UNIT IJ QMON, VIAL 11/24/16 Gabapentin* (Gabapentin*) 100 Mg Capsule, 100 MG GTB TID, #90 CAP 11/24/16 Acetaminophen* (Tylenol*) 500 Mg Tab, 1000 MG PO Q4H Y for PAIN 4-610, TAB 11/24/16 Fe Fumarate/Nenita/FA/Bcomp,C (Nephron FA Tablet) 1 Each Tablet, 1 EACH GTB DAILY , TAB 10/20/16 Cran/Vitc/Mannose/Inulin/Brom (Uti-Stat Liquid) 3,875 Mg/30 Ml Liquid, 3875 MG GTB BID 10/01/16 Zinc Sulfate* (Zinc Sulfate*) 220 Mg Tablet, 220 MG GTB DAILY, TAB 10/01/16 Risperidone* (Risperdal* Liq) 1 Mg/Ml Solution, 1 MG GTB Q9AM, ML 10/01/16 Pantoprazole* (Protonix*) 40 Mg Tablet.dr, 40 MG GTB DAILY, TAB 10/01/16 Hydrocodone/Acetaminophen ([place] 5-325 Tablet) 1 Each Tablet, 1 EACH GTB BID Y for SEVERE PAIN LEVEL 7-10, TAB 10/01/16 Enoxaparin Sodium* (Lovenox*) 30 Mg/0.3 Ml Disp.syrin, 30 MG SQ DAILY, SYR 10/01/16 Na Phos,M-B/Na Phos,Di-Ba (ENEMA READY TO USE) 135 Ml Enema, 135 ML RC EVERY TWO DAYS Y for CONSTIPATION, ENEMA 10/01/16 Ferrous Sulfate* (Ferrous Sulfate*) 220 Mg/5 Ml Solution, 330 MG GTB DAILY, ML 10/01/16 Bisacodyl* (Bisacodyl*) 10 Mg Supp, 10 MG SD Q24H Y for CONSTIPATION, SUPP 10/01/16 Docusate Sodium* (Colace*) 100 Mg Capsule, 200 MG GTB QHS, #60 CAP 10/01/16 Citric Acid/Sodium Citrate* (Bicitra* (PEDIATRIC)) 1 Meq/Ml Soln, 10 MEQ GTB BID for 30 Days, BOTTLE 10/01/16 Albuterol Sulfate* (Albuterol Sulfate* Neb) 0.083%-3 Ml Neb, 2.5 MG NEB Q6 Y for WHEEZING AND SOB, #30 VIAL 10/01/16 Albuterol Sulfate* (Albuterol Sulfate* Neb) 0.083%-3 Ml Neb, 2.5 MG NEB Q3H Y for WHEEZING AND SOB, #30 VIAL 05/03/16 Magnesium Hydroxide* (Milk Of Magnesia*) 400 Mg/5 Ml Oral.susp, 30 ML GTB QHS Y for CONSTIPATION, ML 04/16/15 Acetaminophen* (Tylenol*) 325 Mg Tablet, 650 MG GTB Q4H Y for MILD PAIN LEVEL 1- 3, TAB AND FOR TRACH TUBE CHANGE PRN 04/16/15 Primary Care Provider MD PERLA Gamez SVETLANA Dec 07, 2016 09:09
--- NOTE | 2016-12-07 09:09 | DS ---
Date/Time of Note Date/Time of Note DATE: 12/07/16 TIME: 09:07 Discharge Summary Admission/Discharge Info Admit Date/Time Nov 24, 2016 at 21:00 Discharge Date/Time Dec 07, 2016 at 02:19 Patient Condition: Stable Hx of Present Illness The patient is 41-year-old male with paraplegia due to cervical spine injury, ventilator dependent respiratory failure, dysphagia with G-tube, bipolar disorder with psychosis, and multiple decubitus ulcers. Patient has neurogenic bladder with suprapubic catheter, patient also had on the left kidney with multiple renal stones status post lithotripsy and removal of a left ureteral JJ stent at last admission by Dr. Marquez, patient is status post right nephrectomy. Patient is completed treatment for a urinary tract infection and was [facility] to [facility] facility. However patient noted to have elevated BUN and creatinine on routine labs and was sent to emergency room from residential. Evaluation in the emergency room BUN was 107 creatinine is about 2. Patient also noted to have leukocyte esterase and on urinalysis. Patient was started on broad-spectrum antibiotics and admitted for further evaluation and management. Patient complains of a lower quadrant pain however denies any fever chills denies nausea vomiting denies shortness of breath denies chest pain. Hospital Course Patient is weaned off Levophed last night. Mild hyperkalemia will give Kayexalate. The patient's continues to be hemodynamically stable may be transferred to telemetry in 12 hours. Pt transferred [place] [facility] [place]. Assessment/Plan -Sepsis with shock due to pneumonia and recurrent urinary tract infection. Continue acute antibiotics per ID. Dr. Maciel is following in infection disease consultation. - Acute hypoxic respiratory failure, continue ventilatory support, breathing treatment. Dr. Ames is following in pulmonology consultation. - Acute on chronic encephalopathy, CT of brain is negative for acute stroke. - Acute kidney injury, Dr. Barker is following patient in nephrology consultation - Uremia - Recurrent urinary tract infection. - Neurogenic bladder with suprapubic catheter. - Left renal nephrolithiasis, S/p lithotripsy and removal of a left ureteral JJ stent by Dr. Marquez 10/29. - Status post right nephrectomy - Ventilator-dependent respiratory failure with tracheostomy. - Dysphagia with percutaneous endoscopic gastrostomy tube. - Multiple decubitus ulcers present on admission. - Cervical spine injury with paraplegia. - Bipolar disorder with psychosis. Further recommendations based on clinical course. Plan of care discussed with Dr. Barreto. Home Meds Reported Medications Epoetin Prince (Procrit) 10,000 Unit/1 Ml Vial, 54316 UNIT IJ QMON, VIAL 11/24/16 Gabapentin* (Gabapentin*) 100 Mg Capsule, 100 MG GTB TID, #90 CAP 11/24/16 Acetaminophen* (Tylenol*) 500 Mg Tab, 1000 MG PO Q4H Y for PAIN 4-610, TAB 11/24/16 Fe Fumarate/Nenita/FA/Bcomp,C (Nephron FA Tablet) 1 Each Tablet, 1 EACH GTB DAILY , TAB 10/20/16 Cran/Vitc/Mannose/Inulin/Brom (Uti-Stat Liquid) 3,875 Mg/30 Ml Liquid, 3875 MG GTB BID 10/01/16 Zinc Sulfate* (Zinc Sulfate*) 220 Mg Tablet, 220 MG GTB DAILY, TAB 10/01/16 Risperidone* (Risperdal* Liq) 1 Mg/Ml Solution, 1 MG GTB Q9AM, ML 10/01/16 Pantoprazole* (Protonix*) 40 Mg Tablet.dr, 40 MG GTB DAILY, TAB 10/01/16 Hydrocodone/Acetaminophen ([place] 5-325 Tablet) 1 Each Tablet, 1 EACH GTB BID Y for SEVERE PAIN LEVEL 7-10, TAB 10/01/16 Enoxaparin Sodium* (Lovenox*) 30 Mg/0.3 Ml Disp.syrin, 30 MG SQ DAILY, SYR 10/01/16 Na Phos,M-B/Na Phos,Di-Ba (ENEMA READY TO USE) 135 Ml Enema, 135 ML RC EVERY TWO DAYS Y for CONSTIPATION, ENEMA 10/01/16 Ferrous Sulfate* (Ferrous Sulfate*) 220 Mg/5 Ml Solution, 330 MG GTB DAILY, ML 10/01/16 Bisacodyl* (Bisacodyl*) 10 Mg Supp, 10 MG MD Q24H Y for CONSTIPATION, SUPP 10/01/16 Docusate Sodium* (Colace*) 100 Mg Capsule, 200 MG GTB QHS, #60 CAP 10/01/16 Citric Acid/Sodium Citrate* (Bicitra* (PEDIATRIC)) 1 Meq/Ml Soln, 10 MEQ GTB BID for 30 Days, BOTTLE 10/01/16 Albuterol Sulfate* (Albuterol Sulfate* Neb) 0.083%-3 Ml Neb, 2.5 MG NEB Q6 Y for WHEEZING AND SOB, #30 VIAL 10/01/16 Albuterol Sulfate* (Albuterol Sulfate* Neb) 0.083%-3 Ml Neb, 2.5 MG NEB Q3H Y for WHEEZING AND SOB, #30 VIAL 05/03/16 Magnesium Hydroxide* (Milk Of Magnesia*) 400 Mg/5 Ml Oral.susp, 30 ML GTB QHS Y for CONSTIPATION, ML 04/16/15 Acetaminophen* (Tylenol*) 325 Mg Tablet, 650 MG GTB Q4H Y for MILD PAIN LEVEL 1- 3, TAB AND FOR TRACH TUBE CHANGE PRN 04/16/15 Primary Care Provider MD PERLA Gamez SVETLANA Dec 07, 2016 09:09
== END 2016-12-07 02:19 | DRG 682 ==
LOC: E/R 18:21 → TEL 21:00 → ICU 11-29 00:45
PROVIDERS: ADMIT Internal Medicine; ATTEND Internal Medicine
PROC: 5A1955Z Respiratory Ventilation, Greater than 96 Consecutive Hours (ICD-10-PCS; principal; 2016-11-24)
PROC: 02HV33Z Insertion of Infusion Device into Superior Vena Cava, Percutaneous Approach (ICD-10-PCS; 2016-12-03)
DX: N17.0 Acute kidney failure with tubular necrosis (principal); L89.323 Pressure ulcer of left buttock, stage 3; R65.21 Severe sepsis with septic shock; J96.21 Acute and chronic respiratory failure with hypoxia; G82.50 Quadriplegia, unspecified; A41.9 Sepsis, unspecified organism; G93.40 Encephalopathy, unspecified; J18.9 Pneumonia, unspecified organism; Z99.11 Dependence on respirator [ventilator] status; N39.0 Urinary tract infection, site not specified; E87.2 Acidosis; Z93.0 Tracheostomy status; N18.9 Chronic kidney disease, unspecified; F31.9 Bipolar disorder, unspecified; D64.9 Anemia, unspecified; E87.8 Other disorders of electrolyte and fluid balance, not elsewhere classified; Z76.5 Malingerer [conscious simulation]; N31.9 Neuromuscular dysfunction of bladder, unspecified; Z87.442 Personal history of urinary calculi; R13.10 Dysphagia, unspecified; Z88.3 Allergy status to other anti-infective agents; E87.5 Hyperkalemia; S14.15 Other incomplete lesions of cervical spinal cord; X58.XXXD Exposure to other specified factors, subsequent encounter; F41.8 Other specified anxiety disorders; B96.89 Other specified bacterial agents as the cause of diseases classified elsewhere; Y95 Nosocomial condition; N20.0 Calculus of kidney; D69.6 Thrombocytopenia, unspecified; Z87.440 Personal history of urinary (tract) infections
CPT/HCPCS: 36415; 36569; 36600; 70450; 71010; 74176; 76937; 80048; 80053; 80170; 80202; 81001; 82803; 82962; 83605; 83735; 84100; 85025; 87040; 87070; 87081; 87086; 89220; 92610; 93005; 94002; 94003; 94640; 94664; 94667; 96374; 96375; J0692; J1170; J1580; J1630; J1650; J1956; J2185; J2270; J2405; J2997; J3370; J3480; J7030; J7040; J7042; J7050; J7060; J7070

== ENCOUNTER 2017-02-05 02:15 | Inpatient (IN) | END 2017-02-14 20:30 | DRG 207 ==

== ENCOUNTER 2017-06-15 18:54 | Inpatient (IN) | END 2017-06-27 17:55 | DRG 870 ==

== ENCOUNTER 2017-09-16 23:10 | Inpatient (IN) | END 2017-09-26 23:30 | DRG 870 ==

== ENCOUNTER 2017-11-13 13:09 | Inpatient (IN) | END 2017-11-17 21:00 | DRG 871 ==

== ENCOUNTER 2017-11-23 06:21 | Inpatient (IN) | END 2017-12-12 22:22 | disposition short-term general hospital (02) | DRG 870 ==

== ENCOUNTER 2018-05-14 13:22 | Inpatient (IN) | payer MEDICARE, OTHER ==
[~2018-05-14] VITALS: Ht 172.7 cm; Wt 58.4 kg
[~2018-05-14 13:22] MED LIST changes: +AMIN30LI GTB; +ASCO500C7 GTB; -ASCO500S2 GTB; +BACL10TA GTB; -BICS GTB; +CHLO473M2 MM; +CLON-379 GTB; -CRAN3875 GTB; +DANT25CA GTB; -ENOX30DI10 SQ; +EPO10ESRD SC; +FAMO20TA18 GTB; -FE F1TAB7 GTB; -FERR220S13 GTB; -FOLI1CAP GTB; -GABA250S2 GTB; +GLYC1TAB GTB; -HYDR-906 GTB; +HYDR4TAB51 GTB; +LACT1CAP4 GTB; +MAGN400O19 GTB; -MAGN400O4 GTB; +MERO500P2 IV; +METO25TA4 GTB; +MINE133E23 PR; +MULTI GTB; -NA P135E RC; +ONDA4TAB13 GTB; -PANT40TA3 GTB; -POLY17PO6 GTB; +QUET50TA GTB; -RISS GTB; +SENN-120 GTB; +TRA100 GTB; +TRAM50TA GTB; +TYL500 GTB
--- NOTE | 2018-05-14 13:40 | ERD ---
ER Documentation Chief Complaint Chief Complaint abnormal lab HPI The patient is a 42-year-old male, presenting to the ER because of abnormal lab, high BUN and high creatinine. He is unable to provide any history, the history is obtained from medical record Medical history: Chronic respiratory failure, hypertension, chronic kidney disease, paraplegia, dysphagia, decubitus ulcer Surgical history: Tracheostomy, G-tube, right nephrectomy ROS All systems reviewed and are negative except as per history of present illness. Medications Home Meds Reported Medications Zinc Sulfate* (Zinc Sulfate*) 220 Mg Tablet, 220 MG GTB DAILY, TAB 05/14/18 Ascorbic Acid (Vitamin C) 500 Mg Tab, 500 MG GTB DAILY, TAB 05/14/18 Cran/Vitc/Mannose/Inulin/Brom (Uti-Stat Liquid) 3,875 Mg/30 Ml Liquid, 30 ML GTB DAILY 05/14/18 Acetaminophen* (Acetaminophen*) 500 MG Extra Strength Tablet, 1000 MG GTB Q4H PRN for PAIN -07/16, TAB 05/14/18 Acetaminophen* (Tylenol*) 325 Mg Tablet, 650 MG GTB NEEDED PRN for FOR TRACH TUBE TUBE, TAB 05/14/18 Acetaminophen* (Tylenol*) 325 Mg Tablet, 650 MG GTB Q4H PRN for MILD PAIN LEVEL 1-3, TAB FOR TEMP 101F AND ABOVE, END DATE 07/09/18 05/14/18 Tramadol Hcl* (Ultram*) 50 Mg Tablet, 50 MG GTB BID PRN for PAIN, TAB 05/14/18 Quetiapine Fumarate* (Seroquel*) 50 Mg Tablet, 50 MG GTB BID, TAB 05/14/18 Epoetin Prince (Epogen) 10,000 Units/Ml Soln, 5000 UNITS SC Q MON,WED,SAT, VIAL HOLD IF HGB ABOVE 10 AT 1700 05/14/18 Amino Acids/Protein Hydrolys (PRO-STAT LIQUID) 30 Ml Liquid.pkt, 30 ML GTB DAILY SUGAR FREE 05/14/18 Multivitamins* (Theragran*) 1 Tab Tab, 1 TAB GTB DAILY, TAB 05/14/18 Acetylcysteine* (Mucomyst*) 4 Ml Soln, 4 ML NEB Q6H, EA 05/14/18 Magnesium Hydroxide* (Milk Of Magnesia*) 400 Mg/5 Ml Oral.susp, 30 ML GTB NEEDED, ML END DATE 07/09/18 05/14/18 Levetiracetam* (Keppra* (Ped)) 100 Mg/Ml Liq, 5 ML GTB Q12H for 30 Days, BOTTLE 05/14/18 Argin/Glut/Cahmb/Collag/Mv-Min (Nikko Packet) 1 Each Powd.pack, 1 EACH GTB BID 05/14/18 Glycopyrrolate* (Glycopyrrolate*) 1 Mg Tablet, 1 MG GTB TID, TAB 05/14/18 Na Phos,M-B/Na Phos,Di-Ba (Fleet Enema Extra) 230 Ml Enema, 1 APPLIC RC NEEDED, ENEMA END DATE 07/09/18 05/14/18 Bisacodyl* (Bisacodyl*) 10 Mg Supp, 10 MG DC NEEDED, SUPP END DATE 07/09/18 05/14/18 Hydromorphone Hcl* (Dilaudid*) 4 Mg Tablet, 4 MG GTB Q4H PRN for PAIN LEVEL 7-9 /10, TAB END DATE 07/09/18 05/14/18 Cranberry Extract (Cranberry) 425 Mg Capsule, 425 MG GTB DAILY, CAP 05/14/18 Docusate Sodium* (Colace*) 100 Mg Capsule, 100 MG GTB QHS, #30 CAP 05/14/18 Chlorhexidine Gluconate (Peridex) 473 Ml Mouthwash, 15 ML MM Q12H, BOTTLE 05/14/18 Baclofen* (Baclofen*) 10 Mg Tablet, 5 MG GTB TID, TAB 05/14/18 Albuterol Sulfate* (Albuterol Sulfate* Neb) 0.083%-3 Ml Neb, 2.5 MG NEB Q6H PRN for WHEEZING AND SOB, #30 VIAL AND Q3H NEEDED 05/14/18 Discontinued Reported Medications Metoprolol Tartrate* (Lopressor*) 25 Mg Tablet, 25 MG GTB BID, #60 TAB HOLD FOR SBP LESS THAN 110 OR HR LESS THAN 60 11/13/17 Clonidine Hcl* (Clonidine Hcl*) 0.1 Mg Tab, 0.1 MG GTB Q8 PRN for ELEVATED BLOOD PRESSURE, TAB HOLD FOR SBP LESS THAN 110 HR LESS THAN 60 11/13/17 Lactobacillus Acidophilus/Pect (Acidophilus-Pectin Capsule) 1 Each Capsule, 1 EACH GTB DAILY, CAP 11/13/17 Hydromorphone Hcl* (Dilaudid*) 4 Mg Tablet, 4 MG GTB Q4H PRN for SEVERE PAIN LEVEL 7-10, TAB 11/13/17 Glycopyrrolate* (Glycopyrrolate*) 1 Mg Tablet, 1 MG GTB TID, TAB 11/13/17 Zinc Sulfate* (Zinc Sulfate*) 220 Mg Tablet, 220 MG GTB DAILY, TAB 11/13/17 Ascorbic Acid* (Vitamin C*) 500 Mg Capsule.sa, 500 MG GTB DAILY, CAP 11/13/17 Amino Acids/Protein Hydrolys (PRO-STAT LIQUID) 30 Ml Liquid.pkt, 30 ML GTB DAILY SUGARFREE 11/13/17 Meropenem-0.9% Sodium Chloride (Meropenem-0.9% NaCl 500 mg/50) 500 Mg/50 Ml Piggyback, 500 MG IV Q8 FOR 10 DAYS ORDERED 10--11/13/17 Ondansetron Hcl* (Zofran*) 4 Mg Tab, 4 MG GTB Q6H PRN for NAUSEA AND OR VOMITING, TAB 06/15/17 Tramadol Hcl* (Ultram*) 50 Mg Tablet, 50 MG GTB BID PRN for PAIN, TAB 06/15/17 Acetaminophen* (Tylenol*) 500 Mg Tab, 1000 MG GTB Q4H PRN for PAIN LEVEL 4-6/10, TAB 06/15/17 Acetaminophen* (Tylenol*) 325 Mg Tablet, 650 MG GTB NEEDED PRN for PAIN AND OR ELEVATED TEMP, TAB FOR TRACH TUBE CHANGE 06/15/17 Acetaminophen* (Tylenol*) 325 Mg Tablet, 650 MG GTB Q4H PRN for MILD PAIN LEVEL 1-3, TAB AND TEMP 101F AND ABOVE 06/15/17 Trazodone Hcl* (Trazodone Hcl*) 100 Mg Tablet, 100 MG GTB QHS, #30 TAB 06/15/17 Quetiapine Fumarate* (Seroquel*) 50 Mg Tablet, 50 MG GTB BID, TAB 06/15/17 Sennosides* (Senna Lax*) 8.6 Mg Tablet, 2 TAB GTB BID, TAB 06/15/17 Famotidine* (Famotidine*) 20 Mg Tablet, 20 MG GTB DAILY, #30 TAB 06/15/17 Multivitamins* (Theragran*) 1 Tab Tab, 1 TAB GTB DAILY, TAB 06/15/17 Magnesium Hydroxide* (Milk Of Magnesia*) 400 Mg/5 Ml Oral.susp, 30 ML GTB Q24H for CONSTIPATION, ML 06/15/17 Mineral Oil* (Fleet* Mineral Oil Enema) 133 Ml Oil, 133 ML DC NEEDED, ENEMA 06/15/17 Epoetin Prince (Epogen) 10,000 Units/Ml Soln, 1 ML SC Q PRINCE,THUR, VIAL TAKE Q PRINCE FOR LOW H&H, Q THUR AT 17:00 HOLD FOR HGB ABOVE 11 06/15/17 Bisacodyl* (Bisacodyl*) 10 Mg Supp, 10 MG DC Q24H for CONSTIPATION, SUPP 06/15/17 Dantrolene Sodium* (Dantrolene Sodium*) 25 Mg Capsule, 25 MG GTB Q8, CAP 06/15/17 Docusate Sodium* (Colace*) 100 Mg Capsule, 100 MG GTB QHS, #30 CAP 06/15/17 Chlorhexidine Gluconate (Periogard) 473 Ml Mouthwash, 15 ML MM Q12H, BOTTLE 06/15/17 Baclofen* (Lioresal*) 10 Mg Tab, 5 MG GTB TID PRN for MUSCLE SPASMS, TAB 06/15/17 Albuterol Sulfate* (Albuterol Sulfate* Neb) 0.083%-3 Ml Neb, 2.5 MG NEB Q6H for WHEEZING AND SOB, #30 VIAL WITH ATROVEN 0.5MG UD 06/15/17 Albuterol Sulfate* (Albuterol Sulfate* Neb) 0.083%-3 Ml Neb, 2.5 MG NEB Q3H PRN for WHEEZING AND SOB, #30 VIAL 06/15/17 Allergies Allergies: Coded Allergies: Tetracyclines (Verified Allergy, Unknown, 05/14/18) PMhx/Soc History of Surgery: Yes (TRACH, G-TUBE, RIGHT NEPHRECTOMY, SUPRAPUBIC) Anesthesia Reaction: No Hx Neurological Disorder: No Hx Respiratory Disorders: Yes (CHRONIC RESP FAILURE, TRACH, VENT DEP) Hx Cardiac Disorders: Yes (HTN) Hx Psychiatric Problems: Yes (BIPOLAR WITH PSYCHOSIS) Hx Miscellaneous Medical Probl: Yes (BIPOLAR DO W/ PSYCHOSIS. ANEMIA) Hx Alcohol Use: No Hx Substance Use: No Hx Tobacco Use: No Physical Exam Vitals Vital Signs Date Temp Pulse Resp B/P (MAP) Pulse Ox O2 O2 Flow FiO2 Time Delivery Rate 05/14/18 113 20 84/57 (66) 95 [place] 18:35 l Ventilato r Trach Collar 05/14/18 98.8 118 22 86/59 (68) 94 [place] 17:08 l Ventilato r Trach Collar 05/14/18 101.8 137 26 113/63 95 13:41 (80) Physical Exam Const: No acute distress. Head: Atraumatic. Eyes: Normal Conjunctiva. ENT: Normal External Ears, Nose and Mouth. Neck: Full range of motion. No meningismus. Tracheostomy Resp: Clear to auscultation bilaterally. Cardio: Regular tachycardic Abd: Soft, non distended, normal bowel sounds, non tender. G Tube Skin: No petechiae or rashes. Back: No midline or flank tenderness. Ext: Contracted Neur: Awake and alert. Limited exam due to his condition Psych: Unable to perform due to his condition Result Diagram: 05/14/18 1500 05/14/18 1500 Results 24 hrs Laboratory Tests Test 05/14/18 14:26 05/14/18 14:29 05/14/18 14:59 05/14/18 15:00 Bedside Urine pH 7.5 (LAB) Bedside Urine 2+ Protein (LAB) Bedside Urine Negative Glucose (UA) Bedside Urine Negative Ketones (LAB) Bedside Urine Blood 2+ Bedside Urine Negative Nitrite (LAB) Bedside Urine 3+ Leukocyte Esterase (L Urine Color YELLOW Urine Clarity SLIGHTLY CLOUDY Urine pH 8.0 Urine Specific 1.011 [place] Urine Ketones NEGATIVE mg/dL Urine Nitrite NEGATIVE mg/dL Urine Bilirubin NEGATIVE mg/dL Urine Urobilinogen NEGATIVE mg/dL Urine Leukocyte 3+ José/ul Esterase Urine Microscopic 11 /HPF RBC Urine Microscopic 56 /HPF WBC Urine Squamous FEW /HPF Epithelial Cells Urine Bacteria FEW /HPF Urine Mucus FEW /HPF Urine Hemoglobin 1+ mg/dL Urine Glucose NEGATIVE mg/dL Urine Total Protein 1+ mg/dl POC Venous Lactate 0.8 mmol/L White Blood Count 13.0 10^3/ul Red Blood Count 3.03 10^6/ul Hemoglobin 8.7 g/dl Hematocrit 28.5 % Mean Corpuscular 94.1 fl Volume Mean Corpuscular 28.7 pg Hemoglobin Mean Corpuscular 30.5 g/dl Hemoglobin Concent Red Cell 15.1 % Distribution Width Platelet Count 188 10^3/UL Mean Platelet 12.3 fl Volume Immature 1.000 % Granulocytes % Neutrophils % 91.3 % Lymphocytes % 2.5 % Monocytes % 4.9 % Eosinophils % 0.1 % Basophils % 0.2 % Nucleated Red Blood 0.0 /100WBC Cells % Immature 0.130 10^3/ul Granulocytes # Neutrophils # 11.9 10^3/ul Lymphocytes # 0.3 10^3/ul Monocytes # 0.6 10^3/ul Eosinophils # 0.0 10^3/ul Basophils # 0.0 10^3/ul Nucleated Red Blood 0.0 10^3/ul Cells # Prothrombin Time 13.6 Sec Prothrombin Time 1.1 Ratio INR International 1.03 Normalized Ratio Activated 31.5 Sec Partial Thromboplas t Time Sodium Level 138 mmol/L Potassium Level 4.7 mmol/L Chloride Level 96 mmol/L Carbon Dioxide 32 mmol/L Level Anion Gap 10 Blood Urea Nitrogen 154 mg/dl Creatinine 3.01 mg/dl Est Glomerular 23 mL/min Filtrat Rate mL/min Glucose Level 126 mg/dl Calcium Level 9.1 mg/dl Total Bilirubin 0.0 mg/dl Direct Bilirubin 0.00 mg/dl Indirect Bilirubin 0.0 mg/dl Aspartate Amino 13 IU/L Transf (AST/SGOT) Alanine 8 IU/L Aminotransferase (A LT/SGPT) Alkaline 135 IU/L Phosphatase Troponin I < 0.012 ng/ml Total Protein 7.4 g/dl Albumin 3.3 g/dl Globulin 4.10 g/dl Albumin/Globulin 0.80 Ratio Current Medications Medications Dose Sig/Dwain Start Time Status Last (Trade) Ordered Route PRN Stop Time Admin Dose Reason Admin Vancomycin 250 ml @ ONCE ONCE 05/14/18 DC 05/14/18 HCl 125 mls/hr IVPB 15:00 05/14/18 18:36 16:59 Piperacillin 50 ml @ ONCE ONCE 05/14/18 DC 05/14/18 Sod/ 100 mls/hr IVPB 15:00 05/14/18 15:52 Tazobactam 15:29 Sod 150 ml @ ONCE ONCE 05/14/18 DC 05/14/18 Levofloxacin/ 100 mls/hr IVPB 15:00 05/14/18 16:28 Dextrose 16:29 Sodium 2,040 ml @ BOLUS X1 05/14/18 DC 05/14/18 Chloride 1,020 mls/hr ONCE IV 15:00 05/14/18 15:53 16:59 650 mg ONCE ONCE 05/14/18 DC Acetaminophen DC 15:30 05/14/18 (Tylenol 15:37 Supp) 1 mg ONCE STAT 05/14/18 DC 05/14/18 Hydromorphone IV 15:23 05/14/18 15:52 HCl 15:38 (Dilaudid) IV Flush 3 ml PER 05/14/18 UNV (NS 3 ml) PROTOCOL IV 18:30 Lorazepam 0.5 mg Q6H PRN 05/14/18 UNV (Ativan) IV .ANXIETY 18:30 Ondansetron 4 mg Q6H PRN 05/14/18 UNV HCl (Zofran IV 18:30 Inj) NAUSEA/VOMITI NG 1 tab Q6H PRN 05/14/18 UNV Acetaminophen PO .PAIN 4-6 18:30 / Hydrocodone Bitart (Noble (5/325)) 2 tab Q6H PRN 05/14/18 UNV Acetaminophen PO .PAIN 18:30 / 7-10 Hydrocodone Bitart (Noble (5/325)) 0.5 mg Q4H PRN 05/14/18 UNV Hydromorphone IV .PAIN 18:30 HCl 7-10 (Dilaudid) Docusate 100 mg Q12H PRN 05/14/18 UNV Sodium PO 18:30 (Colace) .CONSTIPATION Magnesium 30 ml DAILY PRN 05/14/18 UNV Hydroxide PO 18:30 (Milk Of Mag) .CONSTIPATION Famotidine 20 mg Q12 PO 05/14/18 UNV (Pepcid) 21:00 Enoxaparin 30 mg DAILY SC 05/15/18 UNV Sodium 09:00 (Lovenox) Sodium 1,000 ml @ Q10H IV 05/14/18 UNV Chloride 100 mls/hr 18:30 Procedures/[place] [id number] Radiology Main Line: [phone] DIAGNOSTIC IMAGING REPORT Patient: ANGIE COPPOLA : 1975 Age: 42 Sex: M [id number] DOS: 05/14/18 1357 Ordering MD: MELIDA ANDRE MD Location: E/R Room/Bed: PROCEDURE: XR Chest. CLINICAL INDICATION: Chest pain TECHNIQUE: Single portable view of the chest was obtained COMPARISON: 04/03/2018 FINDINGS: The heart and mediastinum are within normal limits. There are mild to moderate bibasilar atelectatic changes. There is a right perihilar infiltrate. There is a tracheostomy tube in place. There is no pleural effusion or pneumothorax. RPTAT: AA IMPRESSION: Right perihilar consolidation with air bronchograms. Mild to moderate bibasilar atelectatic changes, left greater than right. .Carlos Hinds MD, MD Date Time Electronically viewed and signed by .Carlos Hinds MD, MD on 05/14/2018 14:16 .S/ CC: MELIDA ANDRE MD [phone] EKG: Read by emergency physician Rate/Rhythm: Sinus tachycardia 130 beats/min QRS, ST, T-waves: No ST elevation, no T inversion, biatrial enlargement, nonspecific T abnormality Impression: Abnormal EKG MEDICAL MAKING DECISION: The patient is a 42-year-old male, presenting with acute bilateral pneumonia, acute cystitis, acute on chronic kidney disease, acute dehydration. He was treated with normosaline 30 mm/kg IV for acute dehydration, vancomycin IV and Zosyn IV and Levaquin IV for acute ventilator associated pneumonia and acute cystitis Tylenol suppository for fever and Dilaudid 1 mg IV for pain with good response. The differential diagnoses considered include but are not limited to pneumonia, cystitis, pyelonephritis, aspiration, osteomyelitis, decubitus ulcer Departure Diagnosis: Primary Impression: PNA (pneumonia) Additional Impressions: UTI (urinary tract infection) [id number] kidney injury Anemia Abnormal LFTs Condition: Critical Comments I discussed the findings with the patient. I discussed the patient with the hosp italist Dr Redd at who was made aware of the lab, the treatment, the patient condition. The patient is admitted to ICU Disclaimer: Inadvertent spelling and grammatical errors are likely due to EHR/dictation software use and do not reflect on the overall quality of patient care. Also, please note that the electronic time recorded on this note does not necessarily reflect the actual time of the patient encounter. MELIDA ANDRE MD May 14, 2018 13:40
[2018-05-14] MEDS ORDERED: ALBU2.5V3 NEB (14:20)
[2018-05-14] MEDS ORDERED: BACL10TA GTB (14:22)
[2018-05-14] MEDS ORDERED: CHLO473M4 MM (14:23)
[2018-05-14] MEDS ORDERED: DOCU-144 GTB (14:24)
[2018-05-14] MEDS ORDERED: CRAN425C6 GTB (14:25)
[2018-05-14] MEDS ORDERED: HYDR4TAB51 GTB (14:27)
[2018-05-14] MEDS ORDERED: BISA10SU75 PR (14:28)
[2018-05-14] MEDS ORDERED: NA P230E RC (14:31)
[2018-05-14] MEDS ORDERED: ARGI1POW23 GTB (14:32)
[2018-05-14] MEDS ORDERED: GLYC1TAB GTB (14:32)
[2018-05-14] MEDS ORDERED: KEP100S GTB (14:34)
[2018-05-14] MEDS ORDERED: MAGN400O19 GTB (14:35)
[2018-05-14] MEDS ORDERED: MUCO4 NEB (14:38)
[2018-05-14] MEDS ORDERED: MULTI GTB (14:38)
[2018-05-14] MEDS ORDERED: AMIN30LI GTB (14:40)
[2018-05-14] MEDS ORDERED: EPO10ESRD SC (14:44)
[2018-05-14] MEDS ORDERED: QUET50TA GTB (14:45)
[2018-05-14] MEDS ORDERED: TRAM50TA GTB (14:46)
[2018-05-14] MEDS ORDERED: ACET325T33 GTB ×2 (14:50)
[2018-05-14] MEDS ORDERED: ACET-141 GTB (14:52)
[2018-05-14] MEDS ORDERED: CRAN3875 GTB (14:53)
[2018-05-14] MEDS ORDERED: ASC500 GTB (14:54)
[2018-05-14] MEDS ORDERED: ZINC220T GTB (14:55)
[2018-05-14] MEDS ORDERED: VANCOMYCIN 1 GM (PMX) 250 ML IVPB ONE (15:00)
[2018-05-14] MEDS ORDERED: LEVOFLOXACIN 750MG/D5W (PMX) 150 ML IVPB ONE (15:00)
[2018-05-14] MEDS ORDERED: SOD CHLORIDE 0.9% 2,040 ML IV ONE (15:00)
[2018-05-14] MEDS ORDERED: PIPER-TAZO 2.25 GM (PMX) 50 ML IVPB ONE (15:00)
[2018-05-14] MEDS ORDERED: HYDROmorphONE 1 MG/ML SYG IV STA (15:23)
[2018-05-14] MEDS ORDERED: ACETAMINOPHEN 650 MG SUPP PR ONE (15:30)
--- NOTE | 2018-05-14 17:14 | CONS ---
DATE OF ADMISSION: 05/14/2018 DATE OF CONSULTATION: 05/14/2018 TYPE OF CONSULTATION: Infectious disease. REASON FOR CONSULTATION: Antibiotic management. HISTORY OF PRESENT ILLNESS: Henry Haddad is a 42-year-old male who comes in with trach, G-tube, r ight nephrectomy, a suprapubic catheter. He has a history of chronic respiratory failure. He is tra ch dependent, has a history of hypertension, is bipolar with psychosis and also anemia. PAST MEDICAL HISTORY: Operations as outlined. FAMILY HISTORY: Noncontributory. SOCIAL HISTORY: He does not smoke, drink or abuse drugs. ALLERGIES: NONE TO PENICILLIN, SULFA OR FOODS. MEDICATIONS: Per chart. REVIEW OF SYSTEMS: As per HPI. PHYSICAL EXAMINATION: GENERAL: The patient is no acute distress. He has a trach, PEG, suprapubic [place]. SKIN: Without generalized rash. HEENT: Within normal limits. NECK: Supple. LYMPH NODES: None palpable. CHEST: Decreased breath sounds at the bases. HEART: Without murmur or gallop. ABDOMEN: Soft, nontender without organosplenomegaly or masses. EXTREMITIES: Without cyanosis, clubbing or edema. RECTAL AND GENITAL: Deferred. NEUROLOGICAL: The patient is fairly obtunded, nonverbal. DIAGNOSTIC DATA: Chest x-ray shows right perihilar consolidation with air bronchograms, mild to mode rate bibasilar atelectatic changes, left greater than right. IMPRESSION AND PLAN: He comes in with community-acquired pneumonia. The patient was started on vanc omycin, Zosyn and Levaquin. White count is 13,000, H and H of 8.7 and 28.5, platelet count of 188,00 0. Urine shows 3+ leukocyte esterase, 56 white cells per high-power field, so he may have a urinary tract infection as well, but most significantly healthcare-acquired pneumonia. Continue him on vanco mycin and Zosyn and observe. Await cultures. I will dictate my findings to the hospitalist. Blood cultures and urine cultures are pending. Dictated By: ANTONELLA STEWART MD, JD/NTS Conf#: [id number] DID#: [id number] CC: MELIDA ANDRE MD;*EndCC*
--- NOTE | 2018-05-14 18:24 | HP ---
Date/Time of Note Date/Time of Note DATE: 05/14/18 TIME: 18:23 Assessment/Plan VTE Prophylaxis SCD applied (from Nsg): Yes Pharmacological prophylaxis: heparin Lines/Catheters IV Catheter Type (from Nrsg): Saline Lock Assessment/Plan Assessment/Plan -Sepsis secondary to pneumonia, continue broad-spectrum antibiotics, IV fluids. Dr. Maciel is asked to see patient in infection disease consultation. -Health care associated pneumonia -UTI per UA -Acute on chronic renal failure, continue IV fluids. Continue to monitor BUN and creatinine. Dr. Barker is asked to see patient in nephrology consultation. -Ventilator dependent respiratory failure, continue pulmonary toilet and bronchodilators. - Neurogenic bladder with suprapubic catheter. - Left renal nephrolithiasis, hx of lithotripsy with insertion and subsequent removal of ureteral JJ stent. - Hx of right nephrectomy - Dysphagia with gastrostomy tube. - Multiple decubitus ulcers present on admission. Will obtain wound care consult. - Cervical spine injury with paraplegia. - Bipolar disorder with psychosis. Further recommendations based on clinical course. Plan of care discussed with Dr. Barreto. Result Diagram: 05/14/18 1500 05/14/18 1500 Results 24hrs Laboratory Tests Test 05/14/18 14:26 05/14/18 14:29 05/14/18 14:59 05/14/18 15:00 Bedside Urine pH 7.5 (LAB) Bedside Urine 2+ H Protein (LAB) Bedside Urine Negative Glucose (UA) Bedside Urine Negative Ketones (LAB) Bedside Urine 2+ H Blood Bedside Urine Negative Nitrite (LAB) Bedside Urine 3+ H Leukocyte Esterase (L Urine Color YELLOW Urine Clarity SLIGHTLY CLOUDY A Urine pH 8.0 Urine Specific 1.011 [place] Urine Ketones NEGATIVE Urine Nitrite NEGATIVE Urine Bilirubin NEGATIVE Urine Urobilinogen NEGATIVE Urine Leukocyte 3+ H Esterase Urine Microscopic 11 H RBC Urine Microscopic 56 H WBC Urine Squamous FEW Epithelial Cells Urine Bacteria FEW A Urine Mucus FEW A Urine Hemoglobin 1+ H Urine Glucose NEGATIVE Urine Total 1+ H Protein POC Venous Lactate 0.8 White Blood Count 13.0 #H Red Blood Count 3.03 L Hemoglobin 8.7 L Hematocrit 28.5 L Mean Corpuscular 94.1 Volume Mean Corpuscular 28.7 L Hemoglobin Mean Corpuscular 30.5 L Hemoglobin Concent Red Cell 15.1 H Distribution Width Platelet Count 188 # Mean Platelet 12.3 H Volume Immature 1.000 H Granulocytes % Neutrophils % 91.3 H Lymphocytes % 2.5 L Monocytes % 4.9 Eosinophils % 0.1 Basophils % 0.2 Nucleated Red 0.0 Blood Cells % Immature 0.130 H Granulocytes # Neutrophils # 11.9 H Lymphocytes # 0.3 L Monocytes # 0.6 Eosinophils # 0.0 Basophils # 0.0 Nucleated Red 0.0 Blood Cells # Prothrombin Time 13.6 Prothrombin Time 1.1 Ratio INR International 1.03 Normalized Ratio Activated 31.[address] Time Sodium Level 138 Potassium Level 4.7 Chloride Level 96 L Carbon Dioxide 32 H Level Anion Gap 10 Blood Urea 154 H Nitrogen Creatinine 3.01 H Est Glomerular 23 L Filtrat Rate mL/min Glucose Level 126 Calcium Level 9.1 Total Bilirubin 0.0 L Direct Bilirubin 0.00 Indirect Bilirubin 0.0 Aspartate Amino 13 L Transf (AST/SGOT) Alanine 8 L Aminotransferase ( ALT/SGPT) Alkaline 135 H Phosphatase Troponin I < 0.012 Total Protein 7.4 Albumin 3.3 Globulin 4.10 H Albumin/Globulin 0.80 Ratio HPI/ROS Admit Date/Time Admit Date/Time Hx of Present Illness The patient is a 42-year-old male with history of paraplegia secondary to cervical spine injury, ventilator dependent respiratory failure with striking ostomy, dysphagia with G-tube, neurogenic bladder with suprapubic catheter, right nephrectomy, left renal renal nephrolithiasis with history of lithotripsy and stent placement and urethral stent removal, history of bipolar disorder with psychosis and history of chronic pain. Patient was sent from assisted facility due to abnormal labs increasing BUN and creatinine. On evaluation emergency room patient noted to have leukocytosis, tachycardia, and fever 101.3. Chest x-ray revealed bilateral infiltrates, urinalysis is indicative of urinary tract infection. Patient was giving IV fluids and broad-spectrum antibiotics. Patient is admitted to intensive care unit for further evaluation and manageme nt. ROS 12 point review of system is negative except for what mentioned in HPI PMH/Family/Social Past Medical History Medical History: hypertension, renal disease, other (Paraplegia, ventilator dependent respiratory failure, dysphagia with G-tube, bipolar disorder with psychosis.) Coded Allergies: Tetracyclines (Verified Allergy, Unknown, 05/14/18) Past Surgical History Past Surgical Hx: other (Status post tracheostomy, status post G-tube placement, status post right nephrectomy, status post suprapubic catheter placement, status post lithotripsy) Family History Significant Family History: no pertinent family hx Social History Alcohol Use: none Smoking Status: Never smoker Drug Use: none Exam/Review of Systems Vital Signs Vitals Vital Signs Date Temp Pulse Resp B/P (MAP) Pulse Ox O2 O2 Flow FiO2 Time Delivery Rate 05/14/18 98.8 118 22 86/59 (68) 94 Mechanical 17:08 Ventilator Trach Collar Exam Constitutional: alert, oriented Neck: supple, other (Tracheostomy to the base of the neck) Respiratory: diminished breath sounds, other (Rhonchi) Cardiovascular: regular rate and rhythm, other (Tachycardic) Gastrointestinal: soft, non-tender, other (G-tube) Genitourinary - Male: other (Suprapubic catheter) Extremities: normal pulses, other (Contracted) Neurological: other (Paraplegia) Skin: other (Multiple wounds) AISSATOU DUNCAN May 14, 2018 18:24
[2018-05-14] MEDS ORDERED: NACL 0.9% 3 ML SYG IV SCH (18:30)
[2018-05-14] MEDS ORDERED: MAGNESIUM HYDROXIDE 30ML CUP PO PRN (18:30)
[2018-05-14] MEDS ORDERED: ONDANSETRON 4 MG INJ IV PRN (18:30)
[2018-05-14] MEDS ORDERED: DOCUSATE SODIUM 100 MG CAP PO PRN (18:30)
[2018-05-14] MEDS: FAMOTIDINE 20 MG TAB PO SCH (21:00)
[2018-05-14] MEDS: SOD CHLORIDE 0.9% 1,000 ML IV SCH (21:32)
[2018-05-14] MEDS: HYDROmorphONE 0.5 MG/0.5 ML SYG IV PRN (22:28)
[2018-05-14] MEDS ORDERED: PENDING SANTYL ORDER FOR WOUND CARE XX PRN (23:00)
[2018-05-15] VITALS (76 sets, daily range): BP systolic 57–125; BP diastolic 42–91; PULSE 77–121; RESP 15–36; Ht 172.7 cm; Wt 58.4 kg
[2018-05-15] MEDS: HYDROmorphONE 0.5 MG/0.5 ML SYG IV PRN ×6 (03:13→20:53)
[2018-05-15] MEDS ORDERED: PHENYLephrine 20MG IN 250 ML 0 ML ONE (06:34)
[2018-05-15] MEDS: SOD CHLORIDE 0.9% 1,000 ML IV SCH ×2 (06:46→14:37)
[2018-05-15] MEDS: HYDROCODONE/APAP (5/325) TAB PO PRN ×5 (06:49→11:58)
[2018-05-15] MEDS ORDERED: SOD CHLORIDE 0.9% 1,000 ML IV ONE (07:00)
[2018-05-15] MEDS ORDERED: ACETAMINOPHEN 650MG/20.3ML CUP PO PRN (07:00)
[2018-05-15] MEDS: FAMOTIDINE 20 MG TAB PO SCH (08:00)
[2018-05-15] MEDS: ENOXAPARIN 30 MG/0.3 ML SYG SC SCH (08:07)
[2018-05-15] MEDS ORDERED: LIDOCAINE 1% (MPF) 5 ML VIAL SC ONE (09:00)
[2018-05-15] MEDS: PHENYLephrine 20MG IN 250 ML 250 ML IV SCH ×3 (09:08→16:55)
--- NOTE | 2018-05-15 10:51 | CONS ---
Assessment/Plan Assessment/Plan Assessment/Plan (Daily) 1. Acute on chronic renal failure 2. Hypernatremia 3. UTI 4. history of paraplegia secondary to cervical spine injury, ventilator dependent respiratory failure with striking ostomy, dysphagia with G-tube, neurogenic bladder with suprapubic catheter, right nephrectomy, left renal renal nephrolithiasis with history of lithotripsy and stent placement and urethral stent removal, history of bipolar disorder Plan: seen in ICU, IV abx as per ID, Renally dose all abx and monitor electrlytes and replace as neded BP stable,a febrile, Continue IVF NS at 100 cc/hr will follow up , thanks for consultation Consultation Date/Type/Reason Admit Date/Time 05/14/18 Date of Consultation: May 15, 2018 Type of Consult NEPHROLOGY Reason for Consultation Acute on chronic renal failure, Hyperklaemia Requesting Provider: JOSÉ ANTONIO MIRZA MD Date/Time of Note DATE: 05/15/18 TIME: 10:50 Hx of Present Illness 42-year-old male with history of paraplegia secondary to cervical spine injury, ventilator dependent respiratory failure with striking ostomy, dysphagia with G- tube, neurogenic bladder with suprapubic catheter, right nephrectomy, left renal renal nephrolithiasis with history of lithotripsy and stent placement and urethral stent removal, history of bipolar disorder with psychosis and history of chronic pain. [facility] due to abnormal labs increasing BUN and creatinine. On evaluation emergency room patient noted to have leukocytosis, tachycardia, and fever 101.3. Chest x-ray revealed bilateral infiltrates, urinalysis is indicative of urinary tract infection. Patient was giving IV fluids and broad-spectrum antibiotics. Patient is admitted to intensive care unit for further evaluation and management. On chemistry he was noted to have BUN/Cr 154/3.01- Renal has been consulted for acute renal failure and Hypernatremia Subjective hx not possible: pt non-verbal Constitutional: chills, febrile, poor po Eyes: no complaints ENT: no complaints Respiratory: no complaints Cardiovascular: no complaints Gastrointestinal: no complaints Genitourinary: no complaints Musculoskeletal: no complaints Skin: no complaints Endocrine: no complaints, polyuria Psychological: no complaints Immunologic: no complaints Past Medical History Home Meds Reported Medications Zinc Sulfate* (Zinc Sulfate*) 220 Mg Tablet, 220 MG GTB DAILY, TAB 05/14/18 Ascorbic Acid (Vitamin C) 500 Mg Tab, 500 MG GTB DAILY, TAB 05/14/18 Cran/Vitc/Mannose/Inulin/Brom (Uti-Stat Liquid) 3,875 Mg/30 Ml Liquid, 30 ML GTB DAILY 05/14/18 Acetaminophen* (Acetaminophen*) 500 MG Extra Strength Tablet, 1000 MG GTB Q4H PRN for PAIN 4-07/16, TAB 05/14/18 Acetaminophen* (Tylenol*) 325 Mg Tablet, 650 MG GTB NEEDED PRN for FOR TRACH TUBE TUBE, TAB 05/14/18 Acetaminophen* (Tylenol*) 325 Mg Tablet, 650 MG GTB Q4H PRN for MILD PAIN LEVEL 1-3, TAB FOR TEMP 101F AND ABOVE, END DATE 07/09/18 05/14/18 Tramadol Hcl* (Ultram*) 50 Mg Tablet, 50 MG GTB BID PRN for PAIN, TAB 05/14/18 Quetiapine Fumarate* (Seroquel*) 50 Mg Tablet, 50 MG GTB BID, TAB 05/14/18 Epoetin Prince (Epogen) 10,000 Units/Ml Soln, 5000 UNITS SC Q MON,WED,SAT, VIAL HOLD IF HGB ABOVE 10 AT 1700 05/14/18 Amino Acids/Protein Hydrolys (PRO-STAT LIQUID) 30 Ml Liquid.pkt, 30 ML GTB DAILY SUGAR FREE 05/14/18 Multivitamins* (Theragran*) 1 Tab Tab, 1 TAB GTB DAILY, TAB 05/14/18 Acetylcysteine* (Mucomyst*) 4 Ml Soln, 4 ML NEB Q6H, EA 05/14/18 Magnesium Hydroxide* (Milk Of Magnesia*) 400 Mg/5 Ml Oral.susp, 30 ML GTB NEEDED, ML END DATE 07/09/18 05/14/18 Levetiracetam* (Keppra* (Ped)) 100 Mg/Ml Liq, 5 ML GTB Q12H for 30 Days, BOTTLE 05/14/18 Argin/Glut/Cahmb/Collag/Mv-Min (Nikko Packet) 1 Each Powd.pack, 1 EACH GTB BID 05/14/18 Glycopyrrolate* (Glycopyrrolate*) 1 Mg Tablet, 1 MG GTB TID, TAB 05/14/18 Na Phos,M-B/Na Phos,Di-Ba (Fleet Enema Extra) 230 Ml Enema, 1 APPLIC RC NEEDED, ENEMA END DATE 07/09/18 05/14/18 Bisacodyl* (Bisacodyl*) 10 Mg Supp, 10 MG NJ NEEDED, SUPP END DATE 07/09/18 05/14/18 Hydromorphone Hcl* (Dilaudid*) 4 Mg Tablet, 4 MG GTB Q4H PRN for PAIN LEVEL 7- 9/10, TAB END DATE 07/09/18 05/14/18 Cranberry Extract (Cranberry) 425 Mg Capsule, 425 MG GTB DAILY, CAP 05/14/18 Docusate Sodium* (Colace*) 100 Mg Capsule, 100 MG GTB QHS, #30 CAP 05/14/18 Chlorhexidine Gluconate (Peridex) 473 Ml Mouthwash, 15 ML MM Q12H, BOTTLE 05/14/18 Baclofen* (Baclofen*) 10 Mg Tablet, 5 MG GTB TID, TAB 05/14/18 Albuterol Sulfate* (Albuterol Sulfate* Neb) 0.083%-3 Ml Neb, 2.5 MG NEB Q6H PRN for WHEEZING AND SOB, #30 VIAL AND Q3H NEEDED 05/14/18 Discontinued Reported Medications Metoprolol Tartrate* (Lopressor*) 25 Mg Tablet, 25 MG GTB BID, #60 TAB HOLD FOR SBP LESS THAN 110 OR HR LESS THAN 60 11/13/17 Clonidine Hcl* (Clonidine Hcl*) 0.1 Mg Tab, 0.1 MG GTB Q8 PRN for ELEVATED BLOOD PRESSURE, TAB HOLD FOR SBP LESS THAN 110 HR LESS THAN 60 11/13/17 Lactobacillus Acidophilus/Pect (Acidophilus-Pectin Capsule) 1 Each Capsule, 1 EACH GTB DAILY, CAP 11/13/17 Hydromorphone Hcl* (Dilaudid*) 4 Mg Tablet, 4 MG GTB Q4H PRN for SEVERE PAIN LEVEL 7-10, TAB 11/13/17 Glycopyrrolate* (Glycopyrrolate*) 1 Mg Tablet, 1 MG GTB TID, TAB 11/13/17 Zinc Sulfate* (Zinc Sulfate*) 220 Mg Tablet, 220 MG GTB DAILY, TAB 11/13/17 Ascorbic Acid* (Vitamin C*) 500 Mg Capsule.sa, 500 MG GTB DAILY, CAP 11/13/17 Amino Acids/Protein Hydrolys (PRO-STAT LIQUID) 30 Ml Liquid.pkt, 30 ML GTB DAILY SUGARFREE 11/13/17 Meropenem-0.9% Sodium Chloride (Meropenem-0.9% NaCl 500 mg/50) 500 Mg/50 Ml Piggyback, 500 MG IV Q8 FOR 10 DAYS ORDERED -06-2311/13/17 Ondansetron Hcl* (Zofran*) 4 Mg Tab, 4 MG GTB Q6H PRN for NAUSEA AND OR VOMITING, TAB 06/15/17 Tramadol Hcl* (Ultram*) 50 Mg Tablet, 50 MG GTB BID PRN for PAIN, TAB 06/15/17 Acetaminophen* (Tylenol*) 500 Mg Tab, 1000 MG GTB Q4H PRN for PAIN LEVEL 4-6/10, TAB 06/15/17 Acetaminophen* (Tylenol*) 325 Mg Tablet, 650 MG GTB NEEDED PRN for PAIN AND OR ELEVATED TEMP, TAB FOR TRACH TUBE CHANGE 06/15/17 Acetaminophen* (Tylenol*) 325 Mg Tablet, 650 MG GTB Q4H PRN for MILD PAIN LEVEL 1-3, TAB AND TEMP 101F AND ABOVE 06/15/17 Trazodone Hcl* (Trazodone Hcl*) 100 Mg Tablet, 100 MG GTB QHS, #30 TAB 06/15/17 Quetiapine Fumarate* (Seroquel*) 50 Mg Tablet, 50 MG GTB BID, TAB 06/15/17 Sennosides* (Senna Lax*) 8.6 Mg Tablet, 2 TAB GTB BID, TAB 06/15/17 Famotidine* (Famotidine*) 20 Mg Tablet, 20 MG GTB DAILY, #30 TAB 06/15/17 Multivitamins* (Theragran*) 1 Tab Tab, 1 TAB GTB DAILY, TAB 06/15/17 Magnesium Hydroxide* (Milk Of Magnesia*) 400 Mg/5 Ml Oral.susp, 30 ML GTB Q24H for CONSTIPATION, ML 06/15/17 Mineral Oil* (Fleet* Mineral Oil Enema) 133 Ml Oil, 133 ML NJ NEEDED, ENEMA 06/15/17 Epoetin Prince (Epogen) 10,000 Units/Ml Soln, 1 ML SC Q PRINCE,THUR, VIAL TAKE Q PRINCE FOR LOW H&H, Q THUR AT 17:00 HOLD FOR HGB ABOVE 11 06/15/17 Bisacodyl* (Bisacodyl*) 10 Mg Supp, 10 MG NJ Q24H for CONSTIPATION, SUPP 06/15/17 Dantrolene Sodium* (Dantrolene Sodium*) 25 Mg Capsule, 25 MG GTB Q8, CAP 06/15/17 Docusate Sodium* (Colace*) 100 Mg Capsule, 100 MG GTB QHS, #30 CAP 06/15/17 Chlorhexidine Gluconate (Periogard) 473 Ml Mouthwash, 15 ML MM Q12H, BOTTLE 06/15/17 Baclofen* (Lioresal*) 10 Mg Tab, 5 MG GTB TID PRN for MUSCLE SPASMS, TAB 06/15/17 Albuterol Sulfate* (Albuterol Sulfate* Neb) 0.083%-3 Ml Neb, 2.5 MG NEB Q6H for WHEEZING AND SOB, #30 VIAL WITH ATROVEN 0.5MG UD 06/15/17 Albuterol Sulfate* (Albuterol Sulfate* Neb) 0.083%-3 Ml Neb, 2.5 MG NEB Q3H PRN for WHEEZING AND SOB, #30 VIAL 06/15/17 Medications Current Medications IV Flush (NS 3 ml) 3 ml PER PROTOCOL IV ; Start 05/14/18 at 18:30 Lorazepam (Ativan) 0.5 mg Q6H PRN IV .ANXIETY; Start 05/14/18 at 18:30 Ondansetron HCl (Zofran Inj) 4 mg Q6H PRN IV NAUSEA/VOMITING; Start 05/14/18 at 18:30 Acetaminophen/ Hydrocodone Bitart ([place] (5/325)) 1 tab Q6H PRN PO .PAIN 4-6; Start 05/14/18 at 18:30 Acetaminophen/ Hydrocodone Bitart ([place] (5/325)) 2 tab Q6H PRN PO .PAIN 7-10 Last administered on 05/15/18at 07:36; Admin Dose 2 TAB; Start 05/14/18 at 18:30 Hydromorphone HCl (Dilaudid) 0.5 mg Q4H PRN IV .PAIN 7-10 Last administered on 05/15/18at 08:00; Admin Dose 0.5 MG; Start 05/14/18 at 18:30 Docusate Sodium (Colace) 100 mg Q12H PRN PO .CONSTIPATION; Start 05/14/18 at 18:30 Magnesium Hydroxide (Milk Of Mag) 30 ml DAILY PRN PO .CONSTIPATION; Start 05/14/18 at 18:30 Famotidine (Pepcid) 20 mg DAILY PO Last administered on 05/15/18at 08:00; Admin Dose 20 MG; Start 05/14/18 at 21:00 Enoxaparin Sodium (Lovenox) 30 mg DAILY SC Last administered on 05/15/18at 08:07; Admin Dose 30 MG; Start 05/15/18 at 09:00 Sodium Chloride 1,000 ml @ 100 mls/hr Q10H IV Last administered on 05/15/18at 06:46; Admin Dose 100 MLS/HR; Start 05/14/18 at 18:30 Miscellaneous Information (Pending [facility] Order For Wound Care) This patient noriega... PRN PRN XX WOUND CARE; Start 05/14/18 at 23:00 Phenylephrine HCl 250 ml @ 75 mls/hr TITRATE IV Last administered on 05/15/18at 09:08; Admin Dose 75 MLS/HR; Start 05/15/18 at 07:00 Acetaminophen (Tylenol Liquid) 650 mg Q6 PRN PO MILD PAIN(1-3)OR ELEVATED TEMP; Start 05/15/18 at 07:00 Allergies: Coded Allergies: Tetracyclines (Verified Allergy, Unknown, 05/14/18) Past Surgical History Past Surgical Hx: other Social History Smoking Status: Never smoker Exam/Review of Systems Exam Vitals Vital Signs Date Temp Pulse Resp B/P (MAP) Pulse Ox O2 O2 Flow FiO2 Time Delivery Rate 05/15/18 97 20 103/74 100 09:30 (84) 05/15/18 99.5 08:00 05/15/18 Mechanical 07:00 Ventilator 05/15/18 100 06:09 Intake and Output 05/14/18 05/14/18 05/15/18 1515:00 23:00 07:00 IntakeIntake Total 100 ml OutputOutput Total 1030 ml BalanceBalance -930 ml Exam Constitutional: alert, oriented Neck: supple, other (Tracheostomy to the base of the neck) Respiratory: diminished breath sounds, other (Rhonchi) Cardiovascular: regular rate and rhythm, other (Tachycardic) Gastrointestinal: soft, non-tender, other (G-tube) Genitourinary - Male: other (Suprapubic catheter) Extremities: normal pulses, other (Contracted) Neurological: other (Paraplegia) Skin: other (Multiple wounds) Results Result Diagram: 05/15/18 0516 05/15/18 0521 Results 24hrs Laboratory Tests Test 05/14/18 14:26 05/14/18 14:29 05/14/18 14:59 05/14/18 15:00 Bedside Urine pH 7.5 (LAB) Bedside Urine 2+ H Protein (LAB) Bedside Urine Negative Glucose (UA) Bedside Urine Negative Ketones (LAB) Bedside Urine 2+ H Blood Bedside Urine Negative Nitrite (LAB) Bedside Urine 3+ H Leukocyte Estera se (L Urine Color YELLOW Urine Clarity SLIGHTLY CLOUDY A Urine pH 8.0 Urine Specific 1.011 Pilgrim Urine Ketones NEGATIVE Urine Nitrite NEGATIVE Urine Bilirubin NEGATIVE Urine NEGATIVE Urobilinogen Urine Leukocyte 3+ H Esterase Urine 11 H Microscopic RBC Urine 56 H Microscopic WBC Urine Squamous FEW Epithelial Cells Urine Bacteria FEW A Urine Mucus FEW A Urine Hemoglobin 1+ H Urine Glucose NEGATIVE Urine Total 1+ H Protein POC Venous 0.8 Lactate White Blood 13.0 #H Count Red Blood Count 3.03 L Hemoglobin 8.7 L Hematocrit 28.5 L Mean Corpuscular 94.1 Volume Mean Corpuscular 28.7 L Hemoglobin Mean Corpuscular 30.5 L Hemoglobin Antonette nt Red Cell 15.1 H Distribution Width Platelet Count 188 # Mean Platelet 12.3 H Volume Immature 1.000 H Granulocytes % Neutrophils % 91.3 H Lymphocytes % 2.5 L Monocytes % 4.9 Eosinophils % 0.1 Basophils % 0.2 Nucleated Red 0.0 Blood Cells % Immature 0.130 H Granulocytes # Neutrophils # 11.9 H Lymphocytes # 0.3 L Monocytes # 0.6 Eosinophils # 0.0 Basophils # 0.0 Nucleated Red 0.0 Blood Cells # Prothrombin Time 13.6 Prothrombin Time 1.1 Ratio INR 1.03 International Normalized Ratio Activated 31.5 Partial Thrombop last Time Sodium Level 138 Potassium Level 4.7 Chloride Level 96 L Carbon Dioxide 32 H Level Anion Gap 10 Blood Urea 154 H Nitrogen Creatinine 3.01 H Est Glomerular 23 L Filtrat Rate mL/min Glucose Level 126 Calcium Level 9.1 Total Bilirubin 0.0 L Direct Bilirubin 0.00 Indirect 0.0 Bilirubin Aspartate Amino 13 L Transf (AST/SGOT ) Alanine 8 L Aminotransferase (ALT/SGPT) Alkaline 135 H Phosphatase Troponin I < 0.012 Total Protein 7.4 Albumin 3.3 Globulin 4.10 H Albumin/Globulin 0.80 Ratio Test 05/14/18 21:00 05/15/18 05:16 05/15/18 05:21 Blood Gas Blood arterial Specimen Source Arterial Blood 05/14/2018 6:10:47 Date Drawn PM Arterial Blood 7.516 H pH (Temp corrected) Arterial Blood 35.1 pCO2 (Temp correct) Arterial Blood 70.4 L pO2 (Temp corrected) Arterial Blood 27.8 H HCO3 Arterial Blood 4.6 H Base Excess Arterial Blood 96.0 Oxygen Saturatio n Julito Test ACCEPTAB Arterial Blood Left Radial Gas Puncture Site Arterial 0.3 Blood Carboxyhem oglobin Arterial Blood 0.3 Methemoglobin Blood Gas A-a O2 246.6 H Differential Oxyhemoglobin 95.4 Percent Blood Gas 37.0 Temperature Blood Gas 20.0 Respiration Rate Blood Gas Actual 16 Respiration Rate Blood Gas VENT - AC Modality FiO2 50.0 Blood Gas Tidal 550.0 Volume Blood Gas RT Notified Whom Blood Gas 05/14/2018 6:19:44 Notified Time PM White Blood 19.2 #H Count Red Blood Count 3.19 L Hemoglobin 9.1 L Hematocrit 30.0 L Mean Corpuscular 94.0 Volume Mean Corpuscular 28.5 L Hemoglobin Mean Corpuscular 30.3 L Hemoglobin Antonette nt Red Cell 15.4 H Distribution Width Platelet Count 226 # Mean Platelet 11.3 H Volume Immature 0.600 H Granulocytes % Neutrophils % 92.9 H Lymphocytes % 2.1 L Monocytes % 4.2 Eosinophils % 0.0 Basophils % 0.2 Nucleated Red 0.0 Blood Cells % Immature 0.120 H Granulocytes # Neutrophils # 17.9 H Lymphocytes # 0.4 L Monocytes # 0.8 Eosinophils # 0.0 Basophils # 0.0 Nucleated Red 0.0 Blood Cells # Sodium Level 144 Potassium Level 4.3 Chloride Level 105 Carbon Dioxide 29 Level Anion Gap 10 Blood Urea 139 H Nitrogen Creatinine 2.91 H Est Glomerular 24 L Filtrat Rate mL/min Glucose Level 107 Hemoglobin A1c 4.7 Calcium Level 8.4 Total Bilirubin 0.2 Direct Bilirubin 0.00 Indirect 0.2 Bilirubin Aspartate Amino 14 L Transf (AST/SGOT ) Alanine 9 L Aminotransferase (ALT/SGPT) Alkaline 123 H Phosphatase Total Protein 6.9 Albumin 3.0 L Globulin 3.90 H Albumin/Globulin 0.76 Ratio Thyroid 0.502 Stimulating Hormone (TSH) Medications Medication Current Medications IV Flush (NS 3 ml) 3 ml PER PROTOCOL IV ; Start 05/14/18 at 18:30 Lorazepam (Ativan) 0.5 mg Q6H PRN IV .ANXIETY; Start 05/14/18 at 18:30 Ondansetron HCl (Zofran Inj) 4 mg Q6H PRN IV NAUSEA/VOMITING; Start 05/14/18 at 18:30 Acetaminophen/ Hydrocodone Bitart ([place] (5/325)) 1 tab Q6H PRN PO .PAIN 4-6; Start 05/14/18 at 18:30 Acetaminophen/ Hydrocodone Bitart ([place] (5/325)) 2 tab Q6H PRN PO .PAIN 7-10 Last administered on 05/15/18 07:36; Admin Dose 2 TAB; Start 05/14/18 at 18:30 Hydromorphone HCl (Dilaudid) 0.5 mg Q4H PRN IV .PAIN 7-10 Last administered on 05/15/18 08:00; Admin Dose 0.5 MG; Start 05/14/18 at 18:30 Docusate Sodium (Colace) 100 mg Q12H PRN PO .CONSTIPATION; Start 05/14/18 at 18:30 Magnesium Hydroxide (Milk Of Mag) 30 ml DAILY PRN PO .CONSTIPATION; Start 05/14/18 at 18:30 Famotidine (Pepcid) 20 mg DAILY PO Last administered on 05/15/18 08:00; Admin Dose 20 MG; Start 05/14/18 at 21:00 Enoxaparin Sodium (Lovenox) 30 mg DAILY SC Last administered on 05/15/18 08:07; Admin Dose 30 MG; Start 05/15/18 at 09:00 Sodium Chloride 1,000 ml @ 100 mls/hr Q10H IV Last administered on 05/15/18at 06:46; Admin Dose 100 MLS/HR; Start 05/14/18 at 18:30 Miscellaneous Information (Pending [facility] Order For Wound Care) This patient noriega... PRN PRN XX WOUND CARE; Start 05/14/18 at 23:00 Phenylephrine HCl 250 ml @ 75 mls/hr TITRATE IV Last administered on 05/15/18at 09:08; Admin Dose 75 MLS/HR; Start 05/15/18 at 07:00 Acetaminophen (Tylenol Liquid) 650 mg Q6 PRN PO MILD PAIN(1-3)OR ELEVATED TEMP; Start 05/15/18 at 07:00 TIARA CISNEROS MD May 15, 2018 10:51
[2018-05-15] MEDS: ALBUTEROL HFA 8 GM INHALER INH SCH ×2 (13:19→19:16)
[2018-05-15] MEDS: IPRATROPIUM (HFA) 12.9 GM INHALER INH SCH ×2 (13:20→19:16)
[2018-05-15] MEDS ORDERED: ALBUTEROL/IPRATROPIUM (NEB) 3 ML AMP HHN SCH (14:00)
--- NOTE | 2018-05-15 14:30 | CONS ---
DATE OF ADMISSION: 05/14/2018 DATE OF CONSULTATION: 05/15/2018 Requested by: José Antonio Mirza MD Thank you, Dr. Mirza, for referring this patient in pulmonary consultation. HISTORY OF PRESENT ILLNESS: As you know, this is a 42-year-old male patient was transferred from the longterm with a history of abnormal lab test showing markedly elevated BUN and creatinine. The patient is known to have had respiratory failure and has been ventilator dependent for the past few y ears. Multiple attempts at weaning him from the ventilator have been unsuccessful. He has a permane nt tracheostomy. He also has a gastrostomy for tube feeding. In addition, the patient has history o f chronic kidney disease with a chronically elevated BUN and creatinine that usually improves with hy dration, but sooner or later, the BUN and creatinine tend to go up. He also has chronic anemia. The patient has a history of paraplegia secondary to spinal cord injury sustained as a teenager several years ago. He has had a right nephrectomy. In addition, he also has a neurogenic bladder. He has a history of nephrolithiasis. In addition, the patient has chronic anemia. He is also known to have psychiatric illness with bipolar disorder and periods of agitation. MEDICATIONS: At longterm include: 1. Zinc sulfate. 2. Ascorbic acid. 3. Cranberry juice. 4. Tylenol. 5. Tramadol for pain. 6. Seroquel. 7. Epogen. 8. Multivitamin supplements. 9. Mucomyst inhalation. 10. Magnesium hydroxide p.r.n. for constipation. 11. Keppra. 12. Robinul to reduce his secretions 13. Dulcolax suppositories. 14. Dilaudid tablets as needed for pain relief. 15. Cranberry tablets. 16. Baclofen. 17. Albuterol inhalation. 18. Metoprolol. 19. Clonidine. 20. Lactobacillus. PERSONAL HABITS: He is a nonsmoker. No history of alcohol drinking. SOCIAL HISTORY: The patient is a long-term resident of the longterm, on ventilator support. FAMILY HISTORY: Cannot be done at this time. PHYSICAL EXAMINATION: GENERAL: Shows young male patient who is awake. He is on long-term ventilator support through trach eostomy. VITAL SIGNS: Show blood pressure 97/56, pulse rate of 94, respirations 27, pulse oximetry 99% satura tion. Earlier in the morning, his temperature 99.5, blood pressure is being maintained with a Ozzy-Sy nephrine drip due to hypotension. HEENT: Head looks normal. No scleral icterus is seen. Throat could not be seen as he would not camp cook perate or open his mouth fully. Tracheal secretions are clear. No bleeding or purulence seen. HEART: Regular sinus rhythm with sinus tachycardia. CHEST: Breath sounds are diminished in both the lower lung tierney with a few intermittent rales and rhonchi. ABDOMEN: Soft, no distention seen. EXTREMITIES: Show no edema. He is paraplegic. No calf tenderness, no cyanosis, no clubbing. The chest x-ray taken on admission in Emergency Room is reported to show right perihilar consolidatio n with air bronchograms, mild to moderate bibasilar atelectatic changes seen, left greater than right . Some of the changes could be chronic. Arterial blood gases showed pH 7.51, pCO2 35, pO2 70 on ventilator support with 50% oxygen and a rate of 16. Chemistry panel showed sodium 138, potassium 4.7, BUN 154, creatinine 3.0, glucose 126, bili calixto 0, albumin 3.3. Today's chemistry panel shows sodium 144, potassium 4.3, bicarbonate of 29. B UN slightly decreased at 139, creatinine also was slightly decreased at 2.91. Albumin decreased to 3 . The CBC shows a WBC is high at 13,000, hemoglobin 8.7, hematocrit 28.5, platelets within normal li mits. Today's CBC shows a WBC count up to 19,200, hemoglobin 9.1, hematocrit 30, platelets within no rmal limits. PT and INR are within normal limits. IMPRESSION: 1. Septic shock. 2. Healthcare-acquired pneumonia. 3. Acute and chronic renal failure. 4. Chronic ventilator dependent respiratory failure. 5. History of neurogenic bladder. 6. History of nephrolithiasis. 7. Status post tracheostomy. 8. Status post gastrostomy. 9. Status post suprapubic cystostomy. 10. 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 11. History of bipolar disorder with psychosis. PLAN: 1. Continue ventilator support. 2. Continue antibiotics as recommended by the infectious disease it security consultant, Dr. Maciel. The patien t has been started on Zosyn and vancomycin with dose adjustments for his renal status. 3. Continue bronchodilator inhalation therapy to clear the secretions and maintain pulmonary hygiene . 4. Continue hydration to improve renal status. 5. Continue pressor drugs to stabilize the blood pressure. 6. Continue tube feedings when his condition permits. Thank you, Dr. Mirza, for referring this patient for pulmonary consultation. With kind regards, Dictated By: HUMBERTO PEREZ MD SR/NTS Conf#: [id number] DID#: [id number] CC: JOSÉ ANTONIO MIRZA MD;*EndCC*
--- NOTE | 2018-05-15 14:42 | CONS ---
Assessment/Plan Assessment/Plan Hospital Course (Demo Recall) Patient is awake and looks comfortable, she is on Ozzy-Synephrine drip, afebrile with a T-max this morning of 101.3 T-current 99.7. WBC today 19.2 H&H 9.1 and 30 platelets 226 neutrophils 92.9 BUN 139 creatinine 2.91 Microbiology: Urine culture growing gram-negative rods Chest x-ray revealed right perihilar consolidation with air bronchograms please see full report in the chart Allergies tetracycline Indwelling: Trach, PEG, suprapubic catheter, peripheral IV Physical examination: Chronically ill-appearing middle-aged man who is in no distress. Head atraumatic normocephalic neck is supple chest rise symmetrical breath sounds diminished bases. Heart: S1-S2. Abdomen soft bowel sounds present. Extremities wasted without cyanosis Assessment: 1. Severe sepsis with shock 2. Healthcare associated pneumonia 3. Urinary tract infection 4. Chronic respiratory failure and dysphagia 5. Acute on chronic kidney disease 6. Neurogenic bladder status post suprapubic catheter placement 7. Incomplete quadriplegia 8. History of nephrectomy 9. History of scabies Plan: Continue vancomycin, change antibiotics to Zyvox and meropenem, send blood cultures and sputum culture, follow urine culture Consultation Date/Type/Reason Admit Date/Time May 14, 2018 at 18:34 Initial Consult Date 05/15/18 Type of Consult id Requesting Provider: ALIZE POLLARD Date/Time of Note DATE: 05/15/18 TIME: 14:42 Exam/Review of Systems Exam Vitals Vital Signs Date Temp Pulse Resp B/P (MAP) Pulse Ox O2 O2 Flow FiO2 Time Delivery Rate 05/15/18 99 23 120/77 98 14:15 (91) 05/15/18 60 13:20 05/15/18 99.7 12:00 05/15/18 Mechanical 07:00 Ventilator Intake and Output 05/14/18 05/14/18 05/15/18 1515:00 23:00 07:00 IntakeIntake Total 2590 ml OutputOutput Total 1030 ml BalanceBalance 1560 ml Results Result Diagram: 05/15/18 0516 05/15/18 0521 Results 24hrs Laboratory Tests Test 05/14/18 14:59 05/14/18 15:00 05/14/18 21:00 05/15/18 05:16 POC Venous Lactate 0.8 White Blood Count 13.0 #H 19.2 #H Red Blood Count 3.03 L 3.19 L Hemoglobin 8.7 L 9.1 L Hematocrit 28.5 L 30.0 L Mean Corpuscular 94.1 94.0 Volume Mean Corpuscular 28.7 L 28.5 L Hemoglobin Mean Corpuscular 30.5 L 30.3 L Hemoglobin Concent Red Cell 15.1 H 15.4 H Distribution Width Platelet Count 188 # 226 # Mean Platelet 12.3 H 11.3 H Volume Immature 1.000 H 0.600 H Granulocytes % Neutrophils % 91.3 H 92.9 H Lymphocytes % 2.5 L 2.1 L Monocytes % 4.9 4.2 Eosinophils % 0.1 0.0 Basophils % 0.2 0.2 Nucleated Red 0.0 0.0 Blood Cells % Immature 0.130 H 0.120 H Granulocytes # Neutrophils # 11.9 H 17.9 H Lymphocytes # 0.3 L 0.4 L Monocytes # 0.6 0.8 Eosinophils # 0.0 0.0 Basophils # 0.0 0.0 Nucleated Red 0.0 0.0 Blood Cells # Prothrombin Time 13.6 Prothrombin Time 1.1 Ratio INR International 1.03 Normalized Ratio Activated 31.[address] Time Sodium Level 138 Potassium Level 4.7 Chloride Level 96 L Carbon Dioxide 32 H Level Anion Gap 10 Blood Urea 154 H Nitrogen Creatinine 3.01 H Est Glomerular 23 L Filtrat Rate mL/min Glucose Level 126 Calcium Level 9.1 Total Bilirubin 0.0 L Direct Bilirubin 0.00 Indirect Bilirubin 0.0 Aspartate Amino 13 L Transf (AST/SGOT) Alanine 8 L Aminotransferase ( ALT/SGPT) Alkaline 135 H Phosphatase Troponin I < 0.012 Total Protein 7.4 Albumin 3.3 Globulin 4.10 H Albumin/Globulin 0.80 Ratio Blood Gas Specimen Blood arterial Source Arterial Blood 05/14/2018 6:10:47 Date Drawn PM Arterial Blood pH 7.516 H (Temp corrected) Arterial Blood 35.1 pCO2 (Temp correct) Arterial Blood pO2 70.4 L (Temp corrected) Arterial Blood 27.8 H HCO3 Arterial Blood 4.6 H Base Excess Arterial Blood 96.0 Oxygen Saturation Julito Test ACCEPTAB Arterial Blood Gas Left Radial Puncture Site Arterial 0.3 Blood Carboxyhemog lobin Arterial Blood 0.3 Methemoglobin Blood Gas A-a O2 246.6 H Differential Oxyhemoglobin 95.4 Percent Blood Gas 37.0 Temperature Blood Gas 20.0 Respiration Rate Blood Gas Actual 16 Respiration Rate Blood Gas Modality VENT - AC FiO2 50.0 Blood Gas Tidal 550.0 Volume Blood Gas Notified RT Whom Blood Gas Notified 05/14/2018 6:19:44 Time PM Test 05/15/18 05:21 Sodium Level 144 Potassium Level 4.3 Chloride Level 105 Carbon Dioxide 29 Level Anion Gap 10 Blood Urea 139 H Nitrogen Creatinine 2.91 H Est Glomerular 24 L Filtrat Rate mL/min Glucose Level 107 Hemoglobin A1c 4.7 Calcium Level 8.4 Total Bilirubin 0.2 Direct Bilirubin 0.00 Indirect Bilirubin 0.2 Aspartate Amino 14 L Transf (AST/SGOT) Alanine 9 L Aminotransferase ( ALT/SGPT) Alkaline 123 H Phosphatase Total Protein 6.9 Albumin 3.0 L Globulin 3.90 H Albumin/Globulin 0.76 Ratio Thyroid 0.502 Stimulating Hormone (TSH) Medications Medication Current Medications IV Flush (NS 3 ml) 3 ml PER PROTOCOL IV ; Start 05/14/18 at 18:30 Lorazepam (Ativan) 0.5 mg Q6H PRN IV .ANXIETY; Start 05/14/18 at 18:30 Ondansetron HCl (Zofran Inj) 4 mg Q6H PRN IV NAUSEA/VOMITING; Start 05/14/18 at 18:30 Acetaminophen/ Hydrocodone Bitart ([place] (5/325)) 1 tab Q6H PRN PO .PAIN 4-6; Start 05/14/18 at 18:30 Acetaminophen/ Hydrocodone Bitart ([place] (5/325)) 2 tab Q6H PRN PO .PAIN 7-10 Last administered on 05/15/18at 11:58; Admin Dose 2 TAB; Start 05/14/18 at 18:30 Hydromorphone HCl (Dilaudid) 0.5 mg Q4H PRN IV .PAIN 7-10 Last administered on 05/15/18at 13:07; Admin Dose 0.5 MG; Start 05/14/18 at 18:30 Docusate Sodium (Colace) 100 mg Q12H PRN PO .CONSTIPATION; Start 05/14/18 at 18:30 Magnesium Hydroxide (Milk Of Mag) 30 ml DAILY PRN PO .CONSTIPATION; Start 05/14/18 at 18:30 Famotidine (Pepcid) 20 mg DAILY PO Last administered on 05/15/18at 08:00; Admin Dose 20 MG; Start 05/14/18 at 21:00 Enoxaparin Sodium (Lovenox) 30 mg DAILY SC Last administered on 05/15/18 08:07; Admin Dose 30 MG; Start 05/15/18 at 09:00 Sodium Chloride 1,000 ml @ 100 mls/hr Q10H IV Last administered on 05/15/18at 14:37; Admin Dose 100 MLS/HR; Start 05/14/18 at 18:30 Miscellaneous Information (Pending Santyl Order For Wound Care) This patient noriega... PRN PRN XX WOUND CARE; Start 05/14/18 at 23:00 Phenylephrine HCl 250 ml @ 75 mls/hr TITRATE IV Last administered on 05/15/18 12:30; Admin Dose 75 MLS/HR; Start 05/15/18 at 07:00 Acetaminophen (Tylenol Liquid) 650 mg Q6 PRN PO MILD PAIN(1-3)OR ELEVATED TEMP; Start 05/15/18 at 07:00 Albuterol (Ventolin Hfa) 4 puff Q6H RESP THERAPY INH Last administered on 05/15/18 13:19; Admin Dose 4 PUFF; Start 05/15/18 at 14:00 Ipratropium [place] (Atrovent Hfa) 4 puff Q6H RESP THERAPY INH Last administered on 05/15/18 13:20; Admin Dose 4 PUFF; Start 05/15/18 at 14:00 Collagenase (Santyl) 1 applic DAILY TOP ; Start 05/15/18 at 13:00 REGINALDO CHERY NP May 15, 2018 14:42
--- NOTE | 2018-05-15 15:50 | PN ---
Date/Time of Note Date/Time of Note DATE: 05/15/18 TIME: 15:49 Assessment/Plan VTE Prophylaxis Risk score (from Ns)>0 risk: 2 SCD applied (from Ns): Yes Pharmacological prophylaxis: heparin Lines/Catheters IV Catheter Type (from Nrs): Peripheral IV Central line still needed: Yes Urinary Cath still in place: Yes Reason Cath still needed: other (indicate) (Suprapubic catheter for neurogenic bladder) Assessment/Plan Hospital Course Patient continues on ventilatory support, pressors for blood pressure support continues on antibiotics, undergoing PICC line insertion. Assessment/Plan - Sepsis secondary to pneumonia, continue broad-spectrum antibiotics, IV fluids. Dr. Maciel is following in infection disease consultation. - Health care associated pneumonia - GNR UTI - Acute on chronic renal failure, continue IV fluids. Continue to monitor BUN and creatinine. Dr. Barker is following patient in nephrology consultation. - Ventilator dependent respiratory failure, continue pulmonary toilet and bronchodilators. Dr Ames is following in pulmonology consultation. - Neurogenic bladder with suprapubic catheter. - Left renal nephrolithiasis, hx of lithotripsy with insertion and subsequent removal of ureteral JJ stent. - Hx of right nephrectomy - Dysphagia with gastrostomy tube. - Multiple decubitus ulcers present on admission. Continue current care per wound consult recommendations, offloading air mattress, optimize nutrition. - Cervical spine injury with paraplegia. - Bipolar disorder with psychosis. Critical care time spent is 30 minutes. Further recommendations based on clinical course. Plan of care discussed with Dr. Barreto. Result Diagram: 05/15/18 0516 05/15/18 0521 Results 24hrs Laboratory Tests Test 05/14/18 21:00 05/15/18 05:16 05/15/18 05:21 Blood Gas Specimen Source Blood arterial Arterial Blood Date Drawn 05/14/2018 6:10:47 PM Arterial Blood pH 7.516 H (Temp corrected) Arterial Blood pCO2 35.1 (Temp correct) Arterial Blood pO2 70.4 L (Temp corrected) Arterial Blood HCO3 27.8 H Arterial Blood Base Excess 4.6 H Arterial Blood 96.0 Oxygen Saturation Julito Test ACCEPTAB Arterial Blood Gas Left Radial Puncture Site Arterial 0.3 Blood Carboxyhemoglobin Arterial Blood Methemoglobin 0.3 Blood Gas A-a O2 Differential 246.6 H Oxyhemoglobin Percent 95.4 Blood Gas Temperature 37.0 Blood Gas Respiration Rate 20.0 Blood Gas Actual 16 Respiration Rate Blood Gas Modality VENT - AC FiO2 50.0 Blood Gas Tidal Volume 550.0 Blood Gas Notified Whom RT Blood Gas Notified Time 05/14/2018 6:19:44 PM White Blood Count 19.2 #H Red Blood Count 3.19 L Hemoglobin 9.1 L Hematocrit 30.0 L Mean Corpuscular Volume 94.0 Mean Corpuscular Hemoglobin 28.5 L Mean Corpuscular 30.3 L Hemoglobin Concent Red Cell Distribution Width 15.4 H Platelet Count 226 # Mean Platelet Volume 11.3 H Immature Granulocytes % 0.600 H Neutrophils % 92.9 H Lymphocytes % 2.1 L Monocytes % 4.2 Eosinophils % 0.0 Basophils % 0.2 Nucleated Red Blood Cells % 0.0 Immature Granulocytes # 0.120 H Neutrophils # 17.9 H Lymphocytes # 0.4 L Monocytes # 0.8 Eosinophils # 0.0 Basophils # 0.0 Nucleated Red Blood Cells # 0.0 Sodium Level 144 Potassium Level 4.3 Chloride Level 105 Carbon Dioxide Level 29 Anion Gap 10 Blood Urea Nitrogen 139 H Creatinine 2.91 H Est Glomerular Filtrat 24 L Rate mL/min Glucose Level 107 Hemoglobin A1c 4.7 Calcium Level 8.4 Total Bilirubin 0.2 Direct Bilirubin 0.00 Indirect Bilirubin 0.2 Aspartate Amino 14 L Transf (AST/SGOT) Alanine 9 L Aminotransferase (ALT/SGPT) Alkaline Phosphatase 123 H Total Protein 6.9 Albumin 3.0 L Globulin 3.90 H Albumin/Globulin Ratio 0.76 Thyroid Stimulating 0.502 Hormone (TSH) Exam/Review of Systems Exam Vitals Vital Signs Date Temp Pulse Resp B/P (MAP) Pulse Ox O2 O2 Flow FiO2 Time Delivery Rate 05/15/18 92 20 98 60 15:20 05/15/18 120/77 14:15 (91) 05/15/18 99.7 12:00 05/15/18 Mechanical 07:00 Ventilator Intake and Output 05/14/18 05/14/18 05/15/18 1515:00 23:00 07:00 IntakeIntake Total 2590 ml OutputOutput Total 1030 ml BalanceBalance 1560 ml Exam Constitutional: alert, oriented Neck: supple, other (Tracheostomy to the base of the neck) Respiratory: diminished breath sounds, other ([place]) Cardiovascular: regular rate and rhythm, other (Tachycardic) Gastrointestinal: soft, non-tender, other (G-tube) Genitourinary - Male: other (Suprapubic catheter) Extremities: normal pulses, other (Contracted) Neurological: other (Paraplegia) Skin: other (Multiple wounds) Results Results 24hrs Laboratory Tests Test 05/14/18 21:00 05/15/18 05:16 05/15/18 05:21 Blood Gas Specimen Source Blood arterial Arterial Blood Date Drawn 05/14/2018 6:10:47 PM Arterial Blood pH 7.516 H (Temp corrected) Arterial Blood pCO2 35.1 (Temp correct) Arterial Blood pO2 70.4 L (Temp corrected) Arterial Blood HCO3 27.8 H Arterial Blood Base Excess 4.6 H Arterial Blood 96.0 Oxygen Saturation Julito Test ACCEPTAB Arterial Blood Gas Left Radial Puncture Site Arterial 0.3 Blood Carboxyhemoglobin Arterial Blood Methemoglobin 0.3 Blood Gas A-a O2 Differential 246.6 H Oxyhemoglobin Percent 95.4 Blood Gas Temperature 37.0 Blood Gas Respiration Rate 20.0 Blood Gas Actual 16 Respiration Rate Blood Gas Modality VENT - AC FiO2 50.0 Blood Gas Tidal Volume 550.0 Blood Gas Notified Whom RT Blood Gas Notified Time 05/14/2018 6:19:44 PM White Blood Count 19.2 #H Red Blood Count 3.19 L Hemoglobin 9.1 L Hematocrit 30.0 L Mean Corpuscular Volume 94.0 Mean Corpuscular Hemoglobin 28.5 L Mean Corpuscular 30.3 L Hemoglobin Concent Red Cell Distribution Width 15.4 H Platelet Count 226 # Mean Platelet Volume 11.3 H Immature Granulocytes % 0.600 H Neutrophils % 92.9 H Lymphocytes % 2.1 L Monocytes % 4.2 Eosinophils % 0.0 Basophils % 0.2 Nucleated Red Blood Cells % 0.0 Immature Granulocytes # 0.120 H Neutrophils # 17.9 H Lymphocytes # 0.4 L Monocytes # 0.8 Eosinophils # 0.0 Basophils # 0.0 Nucleated Red Blood Cells # 0.0 Sodium Level 144 Potassium Level 4.3 Chloride Level 105 Carbon Dioxide Level 29 Anion Gap 10 Blood Urea Nitrogen 139 H Creatinine 2.91 H Est Glomerular Filtrat 24 L Rate mL/min Glucose Level 107 Hemoglobin A1c 4.7 Calcium Level 8.4 Total Bilirubin 0.2 Direct Bilirubin 0.00 Indirect Bilirubin 0.2 Aspartate Amino 14 L Transf (AST/SGOT) Alanine 9 L Aminotransferase (ALT/SGPT) Alkaline Phosphatase 123 H Total Protein 6.9 Albumin 3.0 L Globulin 3.90 H Albumin/Globulin Ratio 0.76 Thyroid Stimulating 0.502 Hormone (TSH) Medications Medication Current Medications IV Flush (NS 3 ml) 3 ml PER PROTOCOL IV ; Start 05/14/18 at 18:30 Lorazepam (Ativan) 0.5 mg Q6H PRN IV .ANXIETY; Start 05/14/18 at 18:30 Ondansetron HCl (Zofran Inj) 4 mg Q6H PRN IV NAUSEA/VOMITING; Start 05/14/18 at 18:30 Acetaminophen/ Hydrocodone Bitart ([place] (5/325)) 1 tab Q6H PRN PO .PAIN 4-6; Start 05/14/18 at 18:30 Acetaminophen/ Hydrocodone Bitart ([place] (5/325)) 2 tab Q6H PRN PO .PAIN 7-10 L ast administered on 05/15/18at 11:58; Admin Dose 2 TAB; Start 05/14/18 at 18:30 Hydromorphone HCl (Dilaudid) 0.5 mg Q4H PRN IV .PAIN 7-10 Last administered on 05/15/18at 13:07; Admin Dose 0.5 MG; Start 05/14/18 at 18:30 Docusate Sodium (Colace) 100 mg Q12H PRN PO .CONSTIPATION; Start 05/14/18 at 18:30 Magnesium Hydroxide (Milk Of Mag) 30 ml DAILY PRN PO .CONSTIPATION; Start 05/14/18 at 18:30 Famotidine (Pepcid) 20 mg DAILY PO Last administered on 05/15/18at 08:00; Admin Dose 20 MG; Start 05/14/18 at 21:00 Enoxaparin Sodium (Lovenox) 30 mg DAILY SC Last administered on 05/15/18at 08:07; Admin Dose 30 MG; Start 05/15/18 at 09:00 Sodium Chloride 1,000 ml @ 100 mls/hr Q10H IV Last administered on 05/15/18at 14:37; Admin Dose 100 MLS/HR; Start 05/14/18 at 18:30 [facility] This patient noriega... PRN PRN XX WOUND CARE; Start 05/14/18 at 23:00 Phenylephrine HCl 250 ml @ 75 mls/hr TITRATE IV Last administered on 05/15/18at 12:30; Admin Dose 75 MLS/HR; Start 05/15/18 at 07:00 Acetaminophen (Tylenol Liquid) 650 mg Q6 PRN PO MILD PAIN(1-3)OR ELEVATED TEMP; Start 05/15/18 at 07:00 Albuterol (Ventolin Hfa) 4 puff Q6H RESP THERAPY INH Last administered on at 13:19; Admin Dose 4 PUFF; Start 05/15/18 at 14:00 Ipratropium [place] (Atrovent Hfa) 4 puff Q6H RESP THERAPY INH Last administered on 05/15/18at 13:20; Admin Dose 4 PUFF; Start 05/15/18 at 14:00 Collagenase (Santyl) 1 applic DAILY TOP ; Start 05/15/18 at 13:00 Meropenem/Sodium Chloride 50 ml @ 100 mls/hr Q12 IVPB ; Start 05/15/18 at 16:00 Linezolid 300 ml @ 300 mls/hr Q12 IVPB ; Start 05/15/18 at 15:00 AISSATOU DUNCAN May 15, 2018 15:50
[2018-05-15] MEDS: COLLAGENASE 5 GM (UD JAR) TOP SCH (16:29)
[2018-05-15] MEDS: CHLORHEXIDINE GLUCONATE 15 ML UD CUP MM SCH (16:29)
[2018-05-15] MEDS: LINEZOLID 600 MG/D5W (PMX) 300 ML IVPB SCH ×2 (16:30→22:06)
[2018-05-15] MEDS: LEVETIRACETAM (100 MG/ML) 5ML CUP GTB SCH (16:59)
[2018-05-15] MEDS: MEROPENEM 500MG/50 ML (PMX) 50 ML IVPB SCH (18:40)
[2018-05-15] MEDS: DOCUSATE SODIUM 10 MG/ML (10ML CUP) GTB SCH (20:53)
[2018-05-15] MEDS: QUETIAPINE 25 MG TAB GTB SCH (20:54)
[2018-05-15] MEDS ORDERED: DOCUSATE SODIUM 100 MG CAP PO SCH (21:00)
[2018-05-16] VITALS (105 sets, daily range): BP systolic 82–110; BP diastolic 49–84; PULSE 91–113; RESP 18–37
[2018-05-16] MEDS: HYDROCODONE/APAP (5/325) TAB PO PRN (00:15)
[2018-05-16] MEDS: MEROPENEM 500MG/50 ML (PMX) 50 ML IVPB SCH ×3 (01:12→20:04)
[2018-05-16] MEDS: IPRATROPIUM (HFA) 12.9 GM INHALER INH SCH ×4 (01:16→20:00)
[2018-05-16] MEDS: ALBUTEROL HFA 8 GM INHALER INH SCH ×4 (01:16→20:00)
[2018-05-16] MEDS: SOD CHLORIDE 0.9% 1,000 ML IV SCH (01:45)
[2018-05-16] MEDS: HYDROmorphONE 0.5 MG/0.5 ML SYG IV PRN ×5 (02:06→22:08)
[2018-05-16] MEDS: PHENYLephrine 20MG IN 250 ML 250 ML IV SCH ×2 (02:53→14:59)
[2018-05-16] MEDS: CHLORHEXIDINE GLUCONATE 15 ML UD CUP MM SCH ×2 (08:03→20:04)
[2018-05-16] MEDS: FAMOTIDINE 20 MG TAB PO SCH (08:03)
[2018-05-16] MEDS: LINEZOLID 600 MG/D5W (PMX) 300 ML IVPB SCH ×2 (08:03→21:13)
[2018-05-16] MEDS: QUETIAPINE 25 MG TAB GTB SCH ×2 (08:03→20:04)
[2018-05-16] MEDS: DOCUSATE SODIUM 10 MG/ML (10ML CUP) GTB SCH ×2 (08:03→20:04)
[2018-05-16] MEDS: LEVETIRACETAM (100 MG/ML) 5ML CUP GTB SCH ×2 (08:03→20:04)
[2018-05-16] MEDS: ASCORBIC ACID 250 MG TAB GTB SCH (08:04)
[2018-05-16] MEDS: MULTIVIT/CA CARB/B CMPLX/FA TAB GTB SCH (08:04)
[2018-05-16] MEDS: COLLAGENASE 5 GM (UD JAR) TOP SCH (08:04)
[2018-05-16] MEDS: ZINC SULFATE 220 MG CAP GTB SCH (08:04)
[2018-05-16] MEDS: ENOXAPARIN 30 MG/0.3 ML SYG SC SCH (08:05)
--- NOTE | 2018-05-16 09:55 | CONS ---
Assessment/Plan Assessment/Plan Assessment/Plan (Daily) 1. Acute on chronic renal failure 2. Hypernatremia 3. UTI 4. history of paraplegia secondary to cervical spine injury, ventilator dependent respiratory failure with striking ostomy, dysphagia with G-tube, neurogenic bladder with suprapubic catheter, right nephrectomy, left renal renal nephrolithiasis with history of lithotripsy and stent placement and urethral stent removal, history of bipolar disorder Plan: BUN/Cr improved to 111/2.37, K normal, HCo3 24, na 147- change IVF from NS to D51/2NS at 100 cc/hr IV abx zyvox and meropenem as per ID, Renally dose all abx and monitor electrlytes and replace as needed will follow up Consultation Date/Type/Reason Admit Date/Time May 14, 2018 at 18:34 Initial Consult Date 05/15/18 Type of Consult NEPHROLOGY Requesting Provider: JOSÉ ANTONIO MIRZA MD Date/Time of Note DATE: 05/16/18 TIME: 09:55 Exam/Review of Systems Exam Vitals Vital Signs Date Temp Pulse Resp B/P (MAP) Pulse Ox O2 O2 Flow FiO2 Time Delivery Rate 05/16/18 100 20 98 45 09:35 05/16/18 82/49 (60) 09:15 05/16/18 98.8 Mechanical 08:00 Ventilator Intake and Output 05/15/18 05/15/18 05/16/18 1414:59 22:59 06:59 IntakeIntake Total 1120 ml 1351.25 ml 1526.25 ml OutputOutput Total 260 ml 400 ml 680 ml BalanceBalance 860 ml 951.25 ml 846.25 ml Exam Constitutional: alert, oriented Neck: supple, + tracheostomy, site is clear Respiratory: decreasesd BS at bases, no wheezing, no crackles Cardiovascular: regular rate and rhythm, other (Tachycardic) Gastrointestinal: soft, non-tender, other (G-tube) Genitourinary - Male: other (Suprapubic catheter) Extremities: normal pulses, other (Contracted) Neurological: other (Paraplegia) Skin: other (Multiple wounds) Results Result Diagram: 05/16/18 0426 05/16/18 6417 Results 24hrs Laboratory Tests Test 05/15/18 14:19 05/16/18 04:26 05/16/18 04:47 Lactic Acid Level 1.0 White Blood Count 14.7 #H Red Blood Count 3.01 L Hemoglobin 8.7 L Hematocrit 28.8 L Mean Corpuscular Volume 95.7 Mean Corpuscular Hemoglobin 28.9 L Mean Corpuscular Hemoglobin Concent 30.2 L Red Cell Distribution Width 15.7 H Platelet Count 197 Mean Platelet Volume 11.8 H Immature Granulocytes % 0.700 H Neutrophils % 88.7 H Lymphocytes % 4.8 L Monocytes % 5.3 Eosinophils % 0.2 Basophils % 0.3 Nucleated Red Blood Cells % 0.0 Immature Granulocytes # 0.100 H Neutrophils # 13.1 H Lymphocytes # 0.7 L Monocytes # 0.8 Eosinophils # 0.0 Basophils # 0.0 Nucleated Red Blood Cells # 0.0 Sodium Level 147 H Potassium Level 3.5 Chloride Level 116 H Carbon Dioxide Level 24 Anion Gap 7 Blood Urea Nitrogen 111 H Creatinine 2.37 H Est Glomerular Filtrat Rate mL/min 30 L Glucose Level 111 Calcium Level 7.6 L Medications Medication Current Medications IV Flush (NS 3 ml) 3 ml PER PROTOCOL IV ; Start 05/14/18 at 18:30 Lorazepam (Ativan) 0.5 mg Q6H PRN IV .ANXIETY; Start 05/14/18 at 18:30 Ondansetron HCl (Zofran Inj) 4 mg Q6H PRN IV NAUSEA/VOMITING; Start 05/14/18 at 18:30 Acetaminophen/ Hydrocodone Bitart ([place] (5/325)) 1 tab Q6H PRN PO .PAIN 4-6; Start 05/14/18 at 18:30 Acetaminophen/ Hydrocodone Bitart ([place] (5/325)) 2 tab Q6H PRN PO .PAIN 7-10 Last administered on 05/16/18at 00:15; Admin Dose 2 TAB; Start 05/14/18 at 18:30 Hydromorphone HCl (Dilaudid) 0.5 mg Q4H PRN IV .PAIN 7-10 Last administered on 05/16/18at 07:43; Admin Dose 0.5 MG; Start 05/14/18 at 18:30 Docusate Sodium (Colace) 100 mg Q12H PRN PO .CONSTIPATION; Start 05/14/18 at 18:30 Magnesium Hydroxide (Milk Of Mag) 30 ml DAILY PRN PO .CONSTIPATION; Start 05/14/18 at 18:30 Famotidine (Pepcid) 20 mg DAILY PO Last administered on 05/16/18 08:03; Admin Dose 20 MG; Start 05/14/18 at 21:00 Enoxaparin Sodium (Lovenox) 30 mg DAILY SC Last administered on 05/16/18 08:05; Admin Dose 30 MG; Start 05/15/18 at 09:00 Sodium Chloride 1,000 ml @ 100 mls/hr Q10H IV Last administered on 05/16/18 01:45; Admin Dose 100 MLS/HR; Start 05/14/18 at 18:30 Miscellaneous Information (Pending Santyl Order For Wound Care) This patient noriega... PRN PRN XX WOUND CARE; Start 05/14/18 at 23:00 Phenylephrine HCl 250 ml @ 75 mls/hr TITRATE IV Last administered on 05/16/18 02:53; Admin Dose 22.5 MLS/HR; Start 05/15/18 at 07:00 Acetaminophen (Tylenol Liquid) 650 mg Q6 PRN PO MILD PAIN(1-3)OR ELEVATED TEMP; Start 05/15/18 at 07:00 Albuterol (Ventolin Hfa) 4 puff Q6H RESP THERAPY INH Last administered on 05/16/18 08:20; Admin Dose 4 PUFF; Start 05/15/18 at 14:00 Ipratropium [place] (Atrovent Hfa) 4 puff Q6H RESP THERAPY INH Last administered on 05/16/18 08:20; Admin Dose 4 PUFF; Start 05/15/18 at 14:00 Collagenase (Santyl) 1 applic DAILY TOP Last administered on 05/16/18 08:04; Admin Dose 1 APPLIC; Start 05/15/18 at 13:00 Meropenem/Sodium Chloride 50 ml @ 100 mls/hr Q12 IVPB Last administered on 05/16/18 09:34; Admin Dose 100 MLS/HR; Start 05/15/18 at 16:00 Linezolid 300 ml @ 300 mls/hr Q12 IVPB Last administered on 05/16/18 08:03; Admin Dose 300 MLS/HR; Start 05/15/18 at 15:00 Multivit/Ca Carb/ B Cmplx/FA/Prenat ([place]) 1 tab DAILY GTB Last administered on 05/16/18 08:04; Admin Dose 1 TAB; Start 05/16/18 at 09:00 Zinc Sulfate (Zinc Sulfate) 220 mg DAILY GTB Last administered on 05/16/18 08:04; Admin Dose 220 MG; Start 05/16/18 at 09:00 Ascorbic Acid (Vitamin C) 250 mg DAILY GTB Last administered on 05/16/18 08:04; Admin Dose 250 MG; Start 05/16/18 at 09:00 Chlorhexidine Gluconate (Peridex) 15 ml Q12 MM Last administered on 05/16/18 08:03; Admin Dose 15 ML; Start 05/15/18 at 16:30 Levetiracetam (Keppra Liquid) 500 mg Q12 GTB Last administered on 05/16/18 08:03; Admin Dose 500 MG; Start 05/15/18 at 16:30 Quetiapine Fumarate (Seroquel) 50 mg BID GTB Last administered on 05/16/18 08:03; Admin Dose 50 MG; Start 05/15/18 at 21:00 IV Flush (NS 10 ml) 10 ml PRN PRN IV IV PROTOCOL; Start 05/15/18 at 18:30 Docusate Sodium (Colace Liquid Cup) 100 mg BID GTB Last administered on 05/16/18 08:03; Admin Dose 100 MG; Start 05/15/18 at 21:00 TIARA CISNEROS MD May 16, 2018 09:55
[2018-05-16] MEDS: DEXTROSE 5%-0.45% NACL 1,000 ML IV SCH ×2 (10:02→20:04)
--- NOTE | 2018-05-16 14:10 | CONS ---
Assessment/Plan Assessment/Plan Hospital Course (Demo Recall) No events overnight patient is lying comfortably in bed, still on Levophed drip, afebrile WBC 14.7 H&H 8.7 and 28.8 platelets 197 neutrophils 88.7 BUN 111 creatinine 2.37 Microbiology: Urine culture grew Proteus mirabilis, multidrug-resistant blood cultures remain negative MRSA swab negative sputum culture growing gram-negative rods Indwelling: Trach, PEG, PICC line, suprapubic catheter Allergies: Tetracycline Antimicrobials: Meropenem, Zyvox Physical examination: Chronically ill-appearing middle-aged man who is in no distress. Head atraumatic normocephalic neck is supple chest rise symmetrical breath sounds diminished bases. Heart: S1-S2. Abdomen soft bowel sounds present. Extremities wasted without cyanosis Assessment: 1. Severe sepsis with shock 2. Healthcare associated pneumonia 3. Urinary tract infection 4. Chronic respiratory failure and dysphagia 5. Acute on chronic kidney disease 6. Neurogenic bladder status post suprapubic catheter placement 7. Incomplete quadriplegia 8. History of nephrectomy 9. History of scabies 10. Multiple chronic wounds Plan: Remains unchanged, still on vasopressor support for blood pressure, WBC trending down, continue antibiotics Consultation Date/Type/Reason Admit Date/Time May 14, 2018 at 18:34 Initial Consult Date 05/15/18 Type of Consult id Requesting Provider: JOSÉ ANTONIO MIRZA MD Date/Time of Note DATE: 05/16/18 TIME: 14:09 Exam/Review of Systems Exam Vitals Vital Signs Date Temp Pulse Resp B/P (MAP) Pulse Ox O2 O2 Flow FiO2 Time Delivery Rate 05/16/18 106 22 105/67 97 13:00 (80) 05/16/18 98.9 Mechanical 12:00 Ventilator 05/16/18 45 11:15 Intake and Output 05/15/18 05/15/18 05/16/18 1515:00 23:00 07:00 IntakeIntake Total 1165 ml 1655.00 ml 1232.50 ml OutputOutput Total 260 ml 425 ml 690 ml BalanceBalance 905 ml 1230.00 ml 542.50 ml Results Result Diagram: 05/16/18 0426 05/16/18 0447 Results 24hrs Laboratory Tests Test 05/15/18 14:19 05/16/18 04:26 05/16/18 04:47 Lactic Acid Level 1.0 White Blood Count 14.7 #H Red Blood Count 3.01 L Hemoglobin 8.7 L Hematocrit 28.8 L Mean Corpuscular Volume 95.7 Mean Corpuscular Hemoglobin 28.9 L Mean Corpuscular Hemoglobin Concent 30.2 L Red Cell Distribution Width 15.7 H Platelet Count 197 Mean Platelet Volume 11.8 H Immature Granulocytes % 0.700 H Neutrophils % 88.7 H Lymphocytes % 4.8 L Monocytes % 5.3 Eosinophils % 0.2 Basophils % 0.3 Nucleated Red Blood Cells % 0.0 Immature Granulocytes # 0.100 H Neutrophils # 13.1 H Lymphocytes # 0.7 L Monocytes # 0.8 Eosinophils # 0.0 Basophils # 0.0 Nucleated Red Blood Cells # 0.0 Sodium Level 147 H Potassium Level 3.5 Chloride Level 116 H Carbon Dioxide Level 24 Anion Gap 7 Blood Urea Nitrogen 111 H Creatinine 2.37 H Est Glomerular Filtrat Rate mL/min 30 L Glucose Level 111 Calcium Level 7.6 L Medications Medication Current Medications IV Flush (NS 3 ml) 3 ml PER PROTOCOL IV ; Start 05/14/18 at 18:30 Lorazepam (Ativan) 0.5 mg Q6H PRN IV .ANXIETY; Start 05/14/18 at 18:30 Ondansetron HCl (Zofran Inj) 4 mg Q6H PRN IV NAUSEA/VOMITING; Start 05/14/18 at 18:30 Acetaminophen/ Hydrocodone Bitart ([place] (5/325)) 1 tab Q6H PRN PO .PAIN 4-6; Start 05/14/18 at 18:30 Acetaminophen/ Hydrocodone Bitart ([place] (5/325)) 2 tab Q6H PRN PO .PAIN 7-10 Last administered on 05/16/18at 00:15; Admin Dose 2 TAB; Start 05/14/18 at 18:30 Hydromorphone HCl (Dilaudid) 0.5 mg Q4H PRN IV .PAIN 7-10 Last administered on 05/16/18at 13:37; Admin Dose 0.5 MG; Start 05/14/18 at 18:30 Docusate Sodium (Colace) 100 mg Q12H PRN PO .CONSTIPATION; Start 05/14/18 at 18:30 Magnesium Hydroxide (Milk Of Mag) 30 ml DAILY PRN PO .CONSTIPATION; Start 05/14/18 at 18:30 Famotidine (Pepcid) 20 mg DAILY PO Last administered on 05/16/18 08:03; Admin Dose 20 MG; Start 05/14/18 at 21:00 Enoxaparin Sodium (Lovenox) 30 mg DAILY SC Last administered on 05/16/18 08:05; Admin Dose 30 MG; Start 05/15/18 at 09:00 Miscellaneous Information (Pending Santyl Order For Wound Care) This patient noriega... PRN PRN XX WOUND CARE; Start 05/14/18 at 23:00 Phenylephrine HCl 250 ml @ 75 mls/hr TITRATE IV Last administered on 05/16/18 02:53; Admin Dose 22.5 MLS/HR; Start 05/15/18 at 07:00 Acetaminophen (Tylenol Liquid) 650 mg Q6 PRN PO MILD PAIN(1-3)OR ELEVATED TEMP; Start 05/15/18 at 07:00 Albuterol (Ventolin Hfa) 4 puff Q6H RESP THERAPY INH Last administered on 05/16/18 08:20; Admin Dose 4 PUFF; Start 05/15/18 at 14:00 Ipratropium [place] (Atrovent Hfa) 4 puff Q6H RESP THERAPY INH Last administered on 05/16/18 08:20; Admin Dose 4 PUFF; Start 05/15/18 at 14:00 Collagenase (Santyl) 1 applic DAILY TOP Last administered on 05/16/18 08:04; Admin Dose 1 APPLIC; Start 05/15/18 at 13:00 Meropenem/Sodium Chloride 50 ml @ 100 mls/hr Q12 IVPB Last administered on 05/16/18 09:34; Admin Dose 100 MLS/HR; Start 05/15/18 at 16:00 Linezolid 300 ml @ 300 mls/hr Q12 IVPB Last administered on 05/16/18 08:03; Admin Dose 300 MLS/HR; Start 05/15/18 at 15:00 Multivit/Ca Carb/ B Cmplx/FA/Prenat ([place]) 1 tab DAILY GTB Last administered on 05/16/18 08:04; Admin Dose 1 TAB; Start 05/16/18 at 09:00 Zinc Sulfate (Zinc Sulfate) 220 mg DAILY GTB Last administered on 05/16/18 08:04; Admin Dose 220 MG; Start 05/16/18 at 09:00 Ascorbic Acid (Vitamin C) 250 mg DAILY GTB Last administered on 05/16/18 08:04; Admin Dose 250 MG; Start 05/16/18 at 09:00 Chlorhexidine Gluconate (Peridex) 15 ml Q12 MM Last administered on 05/16/18 08:03; Admin Dose 15 ML; Start 05/15/18 at 16:30 Levetiracetam (Keppra Liquid) 500 mg Q12 GTB Last administered on 05/16/18 08:03; Admin Dose 500 MG; Start 05/15/18 at 16:30 Quetiapine Fumarate (Seroquel) 50 mg BID GTB Last administered on 05/16/18 08:03; Admin Dose 50 MG; Start 05/15/18 at 21:00 IV Flush (NS 10 ml) 10 ml PRN PRN IV IV PROTOCOL; Start 05/15/18 at 18:30 Docusate Sodium (Colace Liquid Cup) 100 mg BID GTB Last administered on 05/16/18 08:03; Admin Dose 100 MG; Start 05/15/18 at 21:00 Dextrose/Sodium Chloride 1,000 ml @ 100 mls/hr Q10H IV Last administered on 10:02; Admin Dose 100 MLS/HR; Start 05/16/18 at 10:00 REGINALDO CHERY NP May 16, 2018 14:10
--- NOTE | 2018-05-16 15:09 | PN ---
Date/Time of Note Date/Time of Note DATE: 05/16/18 TIME: 14:57 Assessment/Plan VTE Prophylaxis Risk score (from Ns)>0 risk: 5 SCD applied (from Ns): Yes Pharmacological prophylaxis: LMWH Lines/Catheters IV Catheter Type (from [facility]): PICC Line Central line still needed: Yes Urinary Cath still in place: Yes Reason Cath still needed: urinary retention Assessment/Plan Hospital Course Patient continues on Phenylephrine for hemodynamic support, tachycardic, on vent. Pt tolerated GT feeding, will increase to goal of 45cc/hr. Assessment/Plan - Sepsis secondary to pneumonia, continue broad-spectrum antibiotics, IV fluids. Dr. Maciel is following in infection disease consultation. - Health care associated pneumonia - GNR UTI - Acute on chronic renal failure, continue IV fluids. Continue to monitor BUN and creatinine. Dr. Barker is following patient in nephrology consultation. - Ventilator dependent respiratory failure, continue pulmonary toilet and bronchodilators. Dr Ames is following in pulmonology consultation. - Neurogenic bladder with suprapubic catheter. - Left renal nephrolithiasis, hx of lithotripsy with insertion and subsequent removal of ureteral JJ stent. - Hx of right nephrectomy - Dysphagia with gastrostomy tube. - Multiple decubitus ulcers present on admission. Continue current care per wo und consult recommendations, offloading air mattress, optimize nutrition. - Cervical spine injury with paraplegia. - Bipolar disorder with psychosis. Critical care time spent is 30 minutes. Further recommendations based on clinical course. Plan of care discussed with Dr. Barreto. Result Diagram: 05/16/18 0426 05/16/18 0447 Results 24hrs Laboratory Tests Test 05/16/18 04:26 05/16/18 04:47 White Blood Count 14.7 #H Red Blood Count 3.01 L Hemoglobin 8.7 L Hematocrit 28.8 L Mean Corpuscular Volume 95.7 Mean Corpuscular Hemoglobin 28.9 L Mean Corpuscular Hemoglobin Concent 30.2 L Red Cell Distribution Width 15.7 H Platelet Count 197 Mean Platelet Volume 11.8 H Immature Granulocytes % 0.700 H Neutrophils % 88.7 H Lymphocytes % 4.8 L Monocytes % 5.3 Eosinophils % 0.2 Basophils % 0.3 Nucleated Red Blood Cells % 0.0 Immature Granulocytes # 0.100 H Neutrophils # 13.1 H Lymphocytes # 0.7 L Monocytes # 0.8 Eosinophils # 0.0 Basophils # 0.0 Nucleated Red Blood Cells # 0.0 Sodium Level 147 H Potassium Level 3.5 Chloride Level 116 H Carbon Dioxide Level 24 Anion Gap 7 Blood Urea Nitrogen 111 H Creatinine 2.37 H Est Glomerular Filtrat Rate mL/min 30 L Glucose Level 111 Calcium Level 7.6 L Exam/Review of Systems Exam Vitals Vital Signs Date Temp Pulse Resp B/P (MAP) Pulse Ox O2 O2 Flow FiO2 Time Delivery Rate 05/16/18 104 29 97 45 14:03 05/16/18 105/67 13:00 (80) 05/16/18 98.9 Mechanical 12:00 Ventilator Intake and Output 05/15/18 05/15/18 05/16/18 1515:00 23:00 07:00 IntakeIntake Total 1165 ml 1655.00 ml 1232.50 ml OutputOutput Total 260 ml 425 ml 690 ml BalanceBalance 905 ml 1230.00 ml 542.50 ml Exam Constitutional: alert, awake Neck: supple, other (Tracheostomy to the base of the neck) Respiratory: diminished breath sounds, other (Rhonchi) Cardiovascular: regular rate and rhythm, other (Tachycardic) Gastrointestinal: soft, non-tender, other (G-tube) Genitourinary - Male: other (Suprapubic catheter) Extremities: normal pulses, other (Contracted) Neurological: other (Paraplegia) Skin: other (Multiple wounds) Results Results 24hrs Laboratory Tests Test 05/16/18 04:26 05/16/18 04:47 White Blood Count 14.7 #H Red Blood Count 3.01 L Hemoglobin 8.7 L Hematocrit 28.8 L Mean Corpuscular Volume 95.7 Mean Corpuscular Hemoglobin 28.9 L Mean Corpuscular Hemoglobin Concent 30.2 L Red Cell Distribution Width 15.7 H Platelet Count 197 Mean Platelet Volume 11.8 H Immature Granulocytes % 0.700 H Neutrophils % 88.7 H Lymphocytes % 4.8 L Monocytes % 5.3 Eosinophils % 0.2 Basophils % 0.3 Nucleated Red Blood Cells % 0.0 Immature Granulocytes # 0.100 H Neutrophils # 13.1 H Lymphocytes # 0.7 L Monocytes # 0.8 Eosinophils # 0.0 Basophils # 0.0 Nucleated Red Blood Cells # 0.0 Sodium Level 147 H Potassium Level 3.5 Chloride Level 116 H Carbon Dioxide Level 24 Anion Gap 7 Blood Urea Nitrogen 111 H Creatinine 2.37 H Est Glomerular Filtrat Rate mL/min 30 L Glucose Level 111 Calcium Level 7.6 L Medications Medication Current Medications IV Flush (NS 3 ml) 3 ml PER PROTOCOL IV ; Start 05/14/18 at 18:30 Lorazepam (Ativan) 0.5 mg Q6H PRN IV .ANXIETY; Start 05/14/18 at 18:30 Ondansetron HCl (Zofran Inj) 4 mg Q6H PRN IV NAUSEA/VOMITING; Start 05/14/18 at 18:30 Acetaminophen/ Hydrocodone Bitart ([place] (5/325)) 1 tab Q6H PRN PO .PAIN 4-6; Start 05/14/18 at 18:30 Acetaminophen/ Hydrocodone Bitart ([place] (5/325)) 2 tab Q6H PRN PO .PAIN 7-10 Last administered on 05/16/18at 00:15; Admin Dose 2 TAB; Start 05/14/18 at 18:30 Hydromorphone HCl (Dilaudid) 0.5 mg Q4H PRN IV .PAIN 7-10 Last administered on 05/16/18at 13:37; Admin Dose 0.5 MG; Start 05/14/18 at 18:30 Docusate Sodium (Colace) 100 mg Q12H PRN PO .CONSTIPATION; Start 05/14/18 at 18:30 Magnesium Hydroxide (Milk Of Mag) 30 ml DAILY PRN PO .CONSTIPATION; Start 05/14/18 at 18:30 Famotidine (Pepcid) 20 mg DAILY PO Last administered on 05/16/18at 08:03; Admin Dose 20 MG; Start 05/14/18 at 21:00 Enoxaparin Sodium (Lovenox) 30 mg DAILY SC Last administered on 05/16/18at 08:05; Admin Dose 30 MG; Start 05/15/18 at 09:00 Miscellaneous Information (Pending Santyl Order For Wound Care) This patient noriega... PRN PRN XX WOUND CARE; Start 05/14/18 at 23:00 Phenylephrine HCl 250 ml @ 75 mls/hr TITRATE IV Last administered on 05/16/18at 02:53; Admin Dose 22.5 MLS/HR; Start 05/15/18 at 07:00 Acetaminophen (Tylenol Liquid) 650 mg Q6 PRN PO MILD PAIN(1-3)OR ELEVATED TEMP; Start 05/15/18 at 07:00 Albuterol (Ventolin Hfa) 4 puff Q6H RESP THERAPY INH Last administered on 05/16/18 14:27; Admin Dose 4 PUFF; Start 05/15/18 at 14:00 Ipratropium [place] (Atrovent Hfa) 4 puff Q6H RESP THERAPY INH Last administered on 05/16/18 14:27; Admin Dose 4 PUFF; Start 05/15/18 at 14:00 Collagenase (Santyl) 1 applic DAILY TOP Last administered on 05/16/18 08:04; Admin Dose 1 APPLIC; Start 05/15/18 at 13:00 Meropenem/Sodium Chloride 50 ml @ 100 mls/hr Q12 IVPB Last administered on 05/16/18 09:34; Admin Dose 100 MLS/HR; Start 05/15/18 at 16:00 Linezolid 300 ml @ 300 mls/hr Q12 IVPB Last administered on 05/16/18 08:03; Admin Dose 300 MLS/HR; Start 05/15/18 at 15:00 Multivit/Ca Carb/ B Cmplx/FA/Prenat ([place]) 1 tab DAILY GTB Last administered on 05/16/18 08:04; Admin Dose 1 TAB; Start 05/16/18 at 09:00 Zinc Sulfate (Zinc Sulfate) 220 mg DAILY GTB Last administered on 05/16/18 08:04; Admin Dose 220 MG; Start 05/16/18 at 09:00 Ascorbic Acid (Vitamin C) 250 mg DAILY GTB Last administered on 05/16/18 08:04; Admin Dose 250 MG; Start 05/16/18 at 09:00 Chlorhexidine Gluconate (Peridex) 15 ml Q12 MM Last administered on 05/16/18 08:03; Admin Dose 15 ML; Start 05/15/18 at 16:30 Levetiracetam (Keppra Liquid) 500 mg Q12 GTB Last administered on 05/16/18 08:03; Admin Dose 500 MG; Start 05/15/18 at 16:30 Quetiapine Fumarate (Seroquel) 50 mg BID GTB Last administered on 05/16/18at 08:03; Admin Dose 50 MG; Start 05/15/18 at 21:00 IV Flush (NS 10 ml) 10 ml PRN PRN IV IV PROTOCOL; Start 05/15/18 at 18:30 Docusate Sodium (Colace Liquid Cup) 100 mg BID GTB Last administered on 05/16/18at 08:03; Admin Dose 100 MG; Start 05/15/18 at 21:00 Dextrose/Sodium Chloride 1,000 ml @ 100 mls/hr Q10H IV Last administered on 05/16/18at 10:02; Admin Dose 100 MLS/HR; Start 05/16/18 at 10:00 AISSATOU DUNCAN May 16, 2018 15:07
--- NOTE | 2018-05-16 15:12 | PN ---
DATE: 05/16/2018 SUBJECTIVE: The patient is in ICU on the ventilator support. His blood pressure is still low, being kept up with Ozzy-Synephrine. The patient is awake, responsive, opens his eyes when called. PHYSICAL EXAMINATION: VITAL SIGNS: Show blood pressure 95/59, pulse rate 104, respirations 24, pulse oximetry 98% saturati on. He has not had any temperature spikes. This morning, his temperature is 99.2. NECK: Tracheal secretions are minimal to moderate. No purulence. No bleeding seen. HEART: Regular rhythm. CHEST: Breath sounds are heard bilaterally, somewhat diminished in the lower lung [place] with a few intermittent rales and rhonchi. ABDOMEN: Soft. No distention seen. Tolerating tube feedings. Bowel sounds are present. EXTREMITIES: Show no edema. He is paraplegic. LABORATORY TESTS: From today show sodium 147, potassium 3.5, BUN down to 111, creatinine also improv ing to 2.37, glucose 111. CBC shows WBC count down to 14,700, hemoglobin 8.7, hematocrit 28.8, plate lets are within normal limits. Sputum culture reported to show gram-negative rods, so full report is awaited. The urine culture shows Proteus mirabilis, which is sensitive to meropenem. IMPRESSION: 1. Septic shock. 2. Healthcare-acquired pneumonia. 3. Chronic ventilator dependent respiratory failure. 4. Acute on chronic renal failure. 5. History of neurogenic bladder. 6. History of nephrolithiasis. 7. 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 8. Status post tracheostomy. 9. Status post gastrostomy. 10. Status post suprapubic cystostomy. 11. History of bipolar disorder, psychosis. RECOMMENDATIONS 1. Continue ventilator support fci. The patient has failed weaning trials several times in the past. 2. Continue antibiotics. If sputum culture shows any particular organism based on sensitivity, anti biotic therapy could be changed later. 3. Continue bronchodilator inhalation therapy. 4. Continue G-tube feedings. 5. Continue DVT prophylaxis. 6. Continue GI prophylaxis. Dictated By: HUMBERTO PEREZ MD SR/NTS Conf#: [id number] DID#: [id number] CC: JOSÉ ANTONIO MIRZA MD;*EndCC*
[2018-05-17] VITALS (105 sets, daily range): BP systolic 76–115; BP diastolic 43–83; PULSE 88–125; RESP 16–40
[2018-05-17] MEDS: IPRATROPIUM (HFA) 12.9 GM INHALER INH SCH ×4 (01:38→19:22)
[2018-05-17] MEDS: ALBUTEROL HFA 8 GM INHALER INH SCH ×4 (01:38→19:23)
[2018-05-17] MEDS: HYDROmorphONE 0.5 MG/0.5 ML SYG IV PRN ×5 (01:47→20:37)
[2018-05-17] MEDS: DEXTROSE 5%-0.45% NACL 1,000 ML IV SCH ×2 (05:59→16:13)
[2018-05-17] MEDS: DOCUSATE SODIUM 10 MG/ML (10ML CUP) GTB SCH ×2 (08:33→20:23)
[2018-05-17] MEDS: LINEZOLID 600 MG/D5W (PMX) 300 ML IVPB SCH ×2 (09:20→21:12)
[2018-05-17] MEDS: ZINC SULFATE 220 MG CAP GTB SCH (09:20)
[2018-05-17] MEDS: LEVETIRACETAM (100 MG/ML) 5ML CUP GTB SCH ×2 (09:20→20:23)
[2018-05-17] MEDS: MEROPENEM 500MG/50 ML (PMX) 50 ML IVPB SCH ×2 (09:20→20:23)
[2018-05-17] MEDS: CHLORHEXIDINE GLUCONATE 15 ML UD CUP MM SCH ×2 (09:20→20:23)
[2018-05-17] MEDS: QUETIAPINE 25 MG TAB GTB SCH ×2 (09:21→20:23)
[2018-05-17] MEDS: COLLAGENASE 5 GM (UD JAR) TOP SCH (09:21)
[2018-05-17] MEDS: FAMOTIDINE 20 MG TAB PO SCH (09:21)
[2018-05-17] MEDS: MULTIVIT/CA CARB/B CMPLX/FA TAB GTB SCH (09:21)
[2018-05-17] MEDS: ASCORBIC ACID 250 MG TAB GTB SCH (09:21)
[2018-05-17] MEDS: ENOXAPARIN 30 MG/0.3 ML SYG SC SCH (09:34)
--- NOTE | 2018-05-17 12:15 | CONS ---
Assessment/Plan Assessment/Plan Hospital Course (Demo Recall) Patient is alert feels better still on low-dose levo fed drip he is tachycardic with low-grade fevers. T-max yesterday 100.70 current 99.8. WBC 7.9 neutrophils 83.6 BUN 88 creatinine 2.13 Microbiology: Urine culture grew Proteus mirabilis, sputum culture growing further dentia, blood culture grew gram-positive cocci in clusters 1 out of 2 sets Indwelling: Trach, PEG, PICC line, suprapubic catheter Allergies: Tetracycline Antimicrobials: Meropenem, Zyvox Physical examination: Chronically ill-appearing middle-aged man who is in no distress. Head atraumatic normocephalic neck is supple chest rise symmetrical breath sounds diminished bases. Heart: S1-S2. Abdomen soft bowel sounds present. Extremities wasted without cyanosis Assessment: 1. Severe sepsis with shock and bacteremia, poss contaminant 2. Healthcare associated pneumonia 3. Urinary tract infection 4. Chronic respiratory failure and dysphagia 5. Acute on chronic kidney disease 6. Neurogenic bladder status post suprapubic catheter placement 7. Incomplete quadriplegia 8. History of nephrectomy 9. History of scabies 10. Multiple chronic wounds Plan: Remains unchanged, on appropriate antibiotic regimen, WBC trending down,, await for final blood cultures Consultation Date/Type/Reason Admit Date/Time May 14, 2018 at 18:34 Initial Consult Date 05/15/18 Type of Consult id Requesting Provider: JOSÉ ANTONIO MIRZA MD Date/Time of Note DATE: 05/17/18 TIME: 12:14 Exam/Review of Systems Exam Vitals Vital Signs Date Temp Pulse Resp B/P (MAP) Pulse Ox O2 O2 Flow FiO2 Time Delivery Rate 05/17/18 105 24 99 40 11:42 05/17/18 98/66 (77) 10:30 05/17/18 Mechanical 10:00 Ventilator 05/17/18 99.8 08:00 Intake and Output 05/16/18 05/16/18 05/17/18 1515:00 23:00 07:00 IntakeIntake Total 1475 ml 1496.25 ml 1123.75 ml OutputOutput Total 575 ml 600 ml 765 ml BalanceBalance 900 ml 896.25 ml 358.75 ml Results Result Diagram: 05/17/18 0500 05/17/18 0500 Results 24hrs Laboratory Tests Test 05/17/18 05:00 White Blood Count 7.9 # Red Blood Count 2.67 L Hemoglobin 7.5 L Hematocrit 26.0 L Mean Corpuscular Volume 97.4 Mean Corpuscular Hemoglobin 28.1 L Mean Corpuscular Hemoglobin Concent 28.8 L Red Cell Distribution Width 16.1 H Platelet Count 169 Mean Platelet Volume 11.8 H Immature Granulocytes % 0.800 H Neutrophils % 83.6 H Lymphocytes % 7.2 L Monocytes % 7.2 Eosinophils % 1.1 Basophils % 0.1 Nucleated Red Blood Cells % 0.0 Immature Granulocytes # 0.060 H Neutrophils # 6.6 Lymphocytes # 0.6 L Monocytes # 0.6 Eosinophils # 0.1 Basophils # 0.0 Nucleated Red Blood Cells # 0.0 Sodium Level 146 H Potassium Level 3.4 L Chloride Level 114 H Carbon Dioxide Level 23 Anion Gap 9 Blood Urea Nitrogen 88 H Creatinine 2.13 H Est Glomerular Filtrat Rate mL/min 34 L Glucose Level 111 Calcium Level 7.4 L Medications Medication Current Medications IV Flush (NS 3 ml) 3 ml PER PROTOCOL IV ; Start 05/14/18 at 18:30 Lorazepam (Ativan) 0.5 mg Q6H PRN IV .ANXIETY; Start 05/14/18 at 18:30 Ondansetron HCl (Zofran Inj) 4 mg Q6H PRN IV NAUSEA/VOMITING; Start 05/14/18 at 18:30 Acetaminophen/ Hydrocodone Bitart ([place] (5/325)) 1 tab Q6H PRN PO .PAIN 4-6; Start 05/14/18 at 18:30 Acetaminophen/ Hydrocodone Bitart ([place] (5/325)) 2 tab Q6H PRN PO .PAIN 7-10 Last administered on 05/16/18at 00:15; Admin Dose 2 TAB; Start 05/14/18 at 18:30 Hydromorphone HCl (Dilaudid) 0.5 mg Q4H PRN IV .PAIN 7-10 Last administered on 05/17/18at 12:12; Admin Dose 0.5 MG; Start 05/14/18 at 18:30 Docusate Sodium (Colace) 100 mg Q12H PRN PO .CONSTIPATION; Start 05/14/18 at 18:30 Magnesium Hydroxide (Milk Of Mag) 30 ml DAILY PRN PO .CONSTIPATION; Start 05/14/18 at 18:30 Famotidine (Pepcid) 20 mg DAILY PO Last administered on 05/17/18 09:21; Admin Dose 20 MG; Start 05/14/18 at 21:00 Enoxaparin Sodium (Lovenox) 30 mg DAILY SC Last administered on 05/17/18 09:34; Admin Dose 30 MG; Start 05/15/18 at 09:00 Miscellaneous Information (Pending Santyl Order For Wound Care) This patient noriega... PRN PRN XX WOUND CARE; Start 05/14/18 at 23:00 Phenylephrine HCl 250 ml @ 75 mls/hr TITRATE IV Last administered on 05/16/18 14:59; Admin Dose 15 MLS/HR; Start 05/15/18 at 07:00 Acetaminophen (Tylenol Liquid) 650 mg Q6 PRN PO MILD PAIN(1-3)OR ELEVATED TEMP Last administered on 05/16/18 21:13; Admin Dose 650 MG; Start 05/15/18 at 07:00 Albuterol (Ventolin Hfa) 4 puff Q6H RESP THERAPY INH Last administered on 05/17/18 08:27; Admin Dose 4 PUFF; Start 05/15/18 at 14:00 Ipratropium [place] (Atrovent Hfa) 4 puff Q6H RESP THERAPY INH Last administered on 05/17/18 08:27; Admin Dose 4 PUFF; Start 05/15/18 at 14:00 Collagenase (Santyl) 1 applic DAILY TOP Last administered on 05/17/18 09:21; Admin Dose 1 APPLIC; Start 05/15/18 at 13:00 Meropenem/Sodium Chloride 50 ml @ 100 mls/hr Q12 IVPB Last administered on 05/17/18 09:20; Admin Dose 100 MLS/HR; Start 05/15/18 at 16:00 Linezolid 300 ml @ 300 mls/hr Q12 IVPB Last administered on 05/17/18 09:20; Admin Dose 300 MLS/HR; Start 05/15/18 at 15:00 Multivit/Ca Carb/ B Cmplx/FA/Prenat ([place]) 1 tab DAILY GTB Last administered on 05/17/18 09:21; Admin Dose 1 TAB; Start 05/16/18 at 09:00 Zinc Sulfate (Zinc Sulfate) 220 mg DAILY GTB Last administered on 05/17/18 09:20; Admin Dose 220 MG; Start 05/16/18 at 09:00 Ascorbic Acid (Vitamin C) 250 mg DAILY GTB Last administered on 05/17/18 09:21; Admin Dose 250 MG; Start 05/16/18 at 09:00 Chlorhexidine Gluconate (Peridex) 15 ml Q12 MM Last administered on 05/17/18 09:20; Admin Dose 15 ML; Start 05/15/18 at 16:30 Levetiracetam (Keppra Liquid) 500 mg Q12 GTB Last administered on 05/17/18 09:20; Admin Dose 500 MG; Start 05/15/18 at 16:30 Quetiapine Fumarate (Seroquel) 50 mg BID GTB Last administered on 05/17/18 09:21; Admin Dose 50 MG; Start 05/15/18 at 21:00 IV Flush (NS 10 ml) 10 ml PRN PRN IV IV PROTOCOL; Start 05/15/18 at 18:30 Docusate Sodium (Colace Liquid Cup) 100 mg BID GTB Last administered on 05/16/18 20:04; Admin Dose 100 MG; Start 05/15/18 at 21:00 Dextrose/Sodium Chloride 1,000 ml @ 100 mls/hr Q10H IV Last administered on 05/17/18 05:59; Admin Dose 100 MLS/HR; Start 05/16/18 at 10:00 REGINALDO CHERY NP May 17, 2018 12:15
--- NOTE | 2018-05-17 15:13 | CONS ---
Assessment/Plan Assessment/Plan Assessment/Plan (Daily) 1. Acute on chronic renal failure 2. Hypernatremia 3. UTI 4. history of paraplegia secondary to cervical spine injury, ventilator dependent respiratory failure with striking ostomy, dysphagia with G-tube, neurogenic bladder with suprapubic catheter, right nephrectomy, left renal renal nephrolithiasis with history of lithotripsy and stent placement and urethral stent removal, history of bipolar disorder Plan: BUN/Cr improved to 88/2.13, K normal, HCo3 23, na 146, K 3.4- change IVF from D51/2NS to D51/2NS with KCl 20mEQ at 80 cc/hr IV abx zyvox and meropenem as per ID, Renally dose all abx and monitor electrlytes and replace as needed will follow up Consultation Date/Type/Reason Admit Date/Time May 14, 2018 at 18:34 Initial Consult Date 05/15/18 Type of Consult NEPHROLOGY Requesting Provider: JOSÉ ANTONIO MIRZA MD Date/Time of Note DATE: 05/17/18 TIME: 15:13 Exam/Review of Systems Exam Vitals Vital Signs Date Temp Pulse Resp B/P (MAP) Pulse Ox O2 O2 Flow FiO2 Time Delivery Rate 05/17/18 93 20 94/61 (72) 99 14:15 05/17/18 Mechanical 14:00 Ventilator 05/17/18 40 13:00 05/17/18 98.2 12:00 Intake and Output 05/16/18 05/16/18 05/17/18 1414:59 22:59 06:59 IntakeIntake Total 1455 ml 1410 ml 1365.00 ml OutputOutput Total 590 ml 540 ml 875 ml BalanceBalance 865 ml 870 ml 490.00 ml Exam Constitutional: alert, oriented Neck: supple, + tracheostomy, site is clear Respiratory: decreasesd BS at bases, no wheezing, no crackles Cardiovascular: regular rate and rhythm, other (Tachycardic) Gastrointestinal: soft, non-tender, other (G-tube) Genitourinary - Male: other (Suprapubic catheter) Extremities: normal pulses, other (Contracted) Neurological: other (Paraplegia) Skin: other (Multiple wounds) Results Result Diagram: 05/17/18 0500 05/17/18 0500 Results 24hrs Laboratory Tests Test 05/17/18 05:00 White Blood Count 7.9 # Red Blood Count 2.67 L Hemoglobin 7.5 L Hematocrit 26.0 L Mean Corpuscular Volume 97.4 Mean Corpuscular Hemoglobin 28.1 L Mean Corpuscular Hemoglobin Concent 28.8 L Red Cell Distribution Width 16.1 H Platelet Count 169 Mean Platelet Volume 11.8 H Immature Granulocytes % 0.800 H Neutrophils % 83.6 H Lymphocytes % 7.2 L Monocytes % 7.2 Eosinophils % 1.1 Basophils % 0.1 Nucleated Red Blood Cells % 0.0 Immature Granulocytes # 0.060 H Neutrophils # 6.6 Lymphocytes # 0.6 L Monocytes # 0.6 Eosinophils # 0.1 Basophils # 0.0 Nucleated Red Blood Cells # 0.0 Sodium Level 146 H Potassium Level 3.4 L Chloride Level 114 H Carbon Dioxide Level 23 Anion Gap 9 Blood Urea Nitrogen 88 H Creatinine 2.13 H Est Glomerular Filtrat Rate mL/min 34 L Glucose Level 111 Calcium Level 7.4 L Medications Medication Current Medications IV Flush (NS 3 ml) 3 ml PER PROTOCOL IV ; Start 05/14/18 at 18:30 Lorazepam (Ativan) 0.5 mg Q6H PRN IV .ANXIETY; Start 05/14/18 at 18:30 Ondansetron HCl (Zofran Inj) 4 mg Q6H PRN IV NAUSEA/VOMITING; Start 05/14/18 at 18:30 Acetaminophen/ Hydrocodone Bitart ([place] (5/325)) 1 tab Q6H PRN PO .PAIN 4-6; Start 05/14/18 at 18:30 Acetaminophen/ Hydrocodone Bitart ([place] (5/325)) 2 tab Q6H PRN PO .PAIN 7-10 Last administered on 05/16/18at 00:15; Admin Dose 2 TAB; Start 05/14/18 at 18:30 Hydromorphone HCl (Dilaudid) 0.5 mg Q4H PRN IV .PAIN 7-10 Last administered on 05/17/18at 12:12; Admin Dose 0.5 MG; Start 05/14/18 at 18:30 Docusate Sodium (Colace) 100 mg Q12H PRN PO .CONSTIPATION; Start 05/14/18 at 18:30 Magnesium Hydroxide (Milk Of Mag) 30 ml DAILY PRN PO .CONSTIPATION; Start 05/14/18 at 18:30 Famotidine (Pepcid) 20 mg DAILY PO Last administered on 05/17/18 09:21; Admin Dose 20 MG; Start 05/14/18 at 21:00 Enoxaparin Sodium (Lovenox) 30 mg DAILY SC Last administered on 05/17/18 09:34; Admin Dose 30 MG; Start 05/15/18 at 09:00 Miscellaneous Information (Pending Santyl Order For Wound Care) This patient noriega... PRN PRN XX WOUND CARE; Start 05/14/18 at 23:00 Phenylephrine HCl 250 ml @ 75 mls/hr TITRATE IV Last administered on 05/16/18 14:59; Admin Dose 15 MLS/HR; Start 05/15/18 at 07:00 Acetaminophen (Tylenol Liquid) 650 mg Q6 PRN PO MILD PAIN(1-3)OR ELEVATED TEMP Last administered on 05/16/18 21:13; Admin Dose 650 MG; Start 05/15/18 at 07:00 Albuterol (Ventolin Hfa) 4 puff Q6H RESP THERAPY INH Last administered on 05/17/18 08:27; Admin Dose 4 PUFF; Start 05/15/18 at 14:00 Ipratropium [place] (Atrovent Hfa) 4 puff Q6H RESP THERAPY INH Last administered on 05/17/18 08:27; Admin Dose 4 PUFF; Start 05/15/18 at 14:00 Collagenase (Santyl) 1 applic DAILY TOP Last administered on 05/17/18 09:21; Admin Dose 1 APPLIC; Start 05/15/18 at 13:00 Meropenem/Sodium Chloride 50 ml @ 100 mls/hr Q12 IVPB Last administered on 05/17/18 09:20; Admin Dose 100 MLS/HR; Start 05/15/18 at 16:00 Linezolid 300 ml @ 300 mls/hr Q12 IVPB Last administered on 05/17/18 09:20; Admin Dose 300 MLS/HR; Start 05/15/18 at 15:00 Multivit/Ca Carb/ B Cmplx/FA/Prenat ([place]ilib[place]-L[place]) 1 tab DAILY GTB Last administered on 05/17/18 09:21; Admin Dose 1 TAB; Start 05/16/18 at 09:00 Zinc Sulfate (Zinc Sulfate) 220 mg DAILY GTB Last administered on 05/17/18at 0 9:20; Admin Dose 220 MG; Start 05/16/18 at 09:00 Ascorbic Acid (Vitamin C) 250 mg DAILY GTB Last administered on 05/17/18 09:21; Admin Dose 250 MG; Start 05/16/18 at 09:00 Chlorhexidine Gluconate (Peridex) 15 ml Q12 MM Last administered on 05/17/18 09:20; Admin Dose 15 ML; Start 05/15/18 at 16:30 Levetiracetam (Keppra Liquid) 500 mg Q12 GTB Last administered on 05/17/18 09:20; Admin Dose 500 MG; Start 05/15/18 at 16:30 Quetiapine Fumarate (Seroquel) 50 mg BID GTB Last administered on 05/17/18 09:21; Admin Dose 50 MG; Start 05/15/18 at 21:00 IV Flush (NS 10 ml) 10 ml PRN PRN IV IV PROTOCOL; Start 05/15/18 at 18:30 Docusate Sodium (Colace Liquid Cup) 100 mg BID GTB Last administered on at 20:04; Admin Dose 100 MG; Start 05/15/18 at 21:00 Dextrose/Sodium Chloride 1,000 ml @ 100 mls/hr Q10H IV Last administered on 05/17/18at 05:59; Admin Dose 100 MLS/HR; Start 05/16/18 at 10:00 TIARA CISNEROS MD May 17, 2018 15:13
--- NOTE | 2018-05-17 17:41 | PN ---
Date/Time of Note Date/Time of Note DATE: 05/17/18 TIME: 17:36 Assessment/Plan VTE Prophylaxis Risk score (from Ns)>0 risk: 1 SCD applied (from Ns): No SCD contraindicated: low risk/ambulating Pharmacological prophylaxis: heparin Lines/Catheters IV [facility] Type [facility]from [facility]): PICC Line Central line still needed: Yes Urinary Cath still in place: Yes (SUPRAPUBIC CATHETER) Reason Cath still needed: urinary retention Assessment/Plan Hospital Course Patient continues on ventilatory support, phenylephrine for hemodynamic support, tolerated GT feeding. Assessment/Plan - Sepsis secondary to pneumonia, continue antibiotics per ID. Dr. Maciel is following in infection disease consultation. - Health care associated pneumonia - Proteus M UTI - Acute on chronic renal failure, continue IV fluids. Continue to monitor BUN and creatinine. Dr. Barker is following patient in nephrology consultation. - Ventilator dependent respiratory failure, continue pulmonary toilet and bronchodilators. Dr Ames is following in pulmonology consultation. - Neurogenic bladder with suprapubic catheter. - Left renal nephrolithiasis, hx of lithotripsy with insertion and subsequent removal of ureteral JJ stent. - Hx of right nephrectomy - Dysphagia with gastrostomy tube. - Multiple decubitus ulcers present on admission. Continue current care per wound consult recommendations, offloading air mattress, optimize nutrition. - Cervical spine injury with paraplegia. - Bipolar disorder with psychosis. Critical care time spent is 30 minutes. Further recommendations based on clinical course. Plan of care discussed with Dr. Barreto. Result Diagram: 05/17/18 0500 05/17/18 0500 Results 24hrs Laboratory Tests Test 05/17/18 05:00 White Blood Count 7.9 # Red Blood Count 2.67 L Hemoglobin 7.5 L Hematocrit 26.0 L Mean Corpuscular Volume 97.4 Mean Corpuscular Hemoglobin 28.1 L Mean Corpuscular Hemoglobin Concent 28.8 L Red Cell Distribution Width 16.1 H Platelet Count 169 Mean Platelet Volume 11.8 H Immature Granulocytes % 0.800 H Neutrophils % 83.6 H Lymphocytes % 7.2 L Monocytes % 7.2 Eosinophils % 1.1 Basophils % 0.1 Nucleated Red Blood Cells % 0.0 Immature Granulocytes # 0.060 H Neutrophils # 6.6 Lymphocytes # 0.6 L Monocytes # 0.6 Eosinophils # 0.1 Basophils # 0.0 Nucleated Red Blood Cells # 0.0 Sodium Level 146 H Potassium Level 3.4 L Chloride Level 114 H Carbon Dioxide Level 23 Anion Gap 9 Blood Urea Nitrogen 88 H Creatinine 2.13 H Est Glomerular Filtrat Rate mL/min 34 L Glucose Level 111 Calcium Level 7.4 L Exam/Review of Systems Exam Vitals Vital Signs Date Temp Pulse Resp B/P (MAP) Pulse Ox O2 O2 Flow FiO2 Time Delivery Rate 05/17/18 98 21 100 40 17:18 05/17/18 98/61 (73) 17:15 05/17/18 Mechanical 17:00 Ventilator 05/17/18 98.9 16:00 Intake and Output 05/16/18 05/16/18 05/17/18 1515:00 23:00 07:00 IntakeIntake Total 1475 ml 1496.25 ml 1268.75 ml OutputOutput Total 575 ml 600 ml 765 ml BalanceBalance 900 ml 896.25 ml 503.75 ml Exam Constitutional: alert, awake Neck: supple, other (Tracheostomy) Respiratory: diminished breath sounds, other (Scattered Rhonchi) Cardiovascular: regular rate and rhythm Gastrointestinal: soft, non-tender, other (G-tube) Genitourinary - Male: other (Suprapubic catheter) Extremities: normal pulses, other (Contracted) Neurological: other (Paraplegia) Skin: other (Multiple wounds) Results Results 24hrs Laboratory Tests Test 05/17/18 05:00 White Blood Count 7.9 # Red Blood Count 2.67 L Hemoglobin 7.5 L Hematocrit 26.0 L Mean Corpuscular Volume 97.4 Mean Corpuscular Hemoglobin 28.1 L Mean Corpuscular Hemoglobin Concent 28.8 L Red Cell Distribution Width 16.1 H Platelet Count 169 Mean Platelet Volume 11.8 H Immature Granulocytes % 0.800 H Neutrophils % 83.6 H Lymphocytes % 7.2 L Monocytes % 7.2 Eosinophils % 1.1 Basophils % 0.1 Nucleated Red Blood Cells % 0.0 Immature Granulocytes # 0.060 H Neutrophils # 6.6 Lymphocytes # 0.6 L Monocytes # 0.6 Eosinophils # 0.1 Basophils # 0.0 Nucleated Red Blood Cells # 0.0 Sodium Level 146 H Potassium Level 3.4 L Chloride Level 114 H Carbon Dioxide Level 23 Anion Gap 9 Blood Urea Nitrogen 88 H Creatinine 2.13 H Est Glomerular Filtrat Rate mL/min 34 L Glucose Level 111 Calcium Level 7.4 L Medications Medication Current Medications IV Flush (NS 3 ml) 3 ml PER PROTOCOL IV ; Start 05/14/18 at 18:30 Lorazepam (Ativan) 0.5 mg Q6H PRN IV .ANXIETY; Start 05/14/18 at 18:30 Ondansetron HCl (Zofran Inj) 4 mg Q6H PRN IV NAUSEA/VOMITING; Start 05/14/18 at 18:30 Acetaminophen/ Hydrocodone Bitart ([place] (5/325)) 1 tab Q6H PRN PO .PAIN 4-6; Start 05/14/18 at 18:30 Acetaminophen/ Hydrocodone Bitart ([place] (5/325)) 2 tab Q6H PRN PO .PAIN 7-10 Last administered on 05/16/18at 00:15; Admin Dose 2 TAB; Start 05/14/18 at 18:30 Hydromorphone HCl (Dilaudid) 0.5 mg Q4H PRN IV .PAIN 7-10 Last administered on 05/17/18at 16:12; Admin Dose 0.5 MG; Start 05/14/18 at 18:30 Docusate Sodium (Colace) 100 mg Q12H PRN PO .CONSTIPATION; Start 05/14/18 at 18:30 Magnesium Hydroxide (Milk Of Mag) 30 ml DAILY PRN PO .CONSTIPATION; Start 05/14/18 at 18:30 Famotidine (Pepcid) 20 mg DAILY PO Last administered on 05/17/18at 09:21; Admin Dose 20 MG; Start 05/14/18 at 21:00 Enoxaparin Sodium (Lovenox) 30 mg DAILY SC Last administered on 05/17/18at 09:34; Admin Dose 30 MG; Start 05/15/18 at 09:00 Miscellaneous Information (Pending Santyl Order For Wound Care) This patient noriega... PRN PRN XX WOUND CARE; Start 05/14/18 at 23:00 Phenylephrine HCl 250 ml @ 75 mls/hr TITRATE IV Last administered on 05/16/18at 14:59; Admin Dose 15 MLS/HR; Start 05/15/18 at 07:00 Acetaminophen (Tylenol Liquid) 650 mg Q6 PRN PO MILD PAIN(1-3)OR ELEVATED TEMP Last administered on 05/16/18 21:13; Admin Dose 650 MG; Start 05/15/18 at 07:00 Albuterol (Ventolin Hfa) 4 puff Q6H RESP THERAPY INH Last administered on 05/17/18 15:18; Admin Dose 4 PUFF; Start 05/15/18 at 14:00 Ipratropium [place] (Atrovent Hfa) 4 puff Q6H RESP THERAPY INH Last administered on 05/17/18 15:18; Admin Dose 4 PUFF; Start 05/15/18 at 14:00 Collagenase (Santyl) 1 applic DAILY TOP Last administered on 05/17/18 09:21; Admin Dose 1 APPLIC; Start 05/15/18 at 13:00 Meropenem/Sodium Chloride 50 ml @ 100 mls/hr Q12 IVPB Last administered on 05/17/18 09:20; Admin Dose 100 MLS/HR; Start 05/15/18 at 16:00 Linezolid 300 ml @ 300 mls/hr Q12 IVPB Last administered on 05/17/18 09:20; Admin Dose 300 MLS/HR; Start 05/15/18 at 15:00 Multivit/Ca Carb/ B Cmplx/FA/Prenat (Lilibeth-Linn) 1 tab DAILY GTB Last administered on 05/17/18 09:21; Admin Dose 1 TAB; Start 05/16/18 at 09:00 Zinc Sulfate (Zinc Sulfate) 220 mg DAILY GTB Last administered on 05/17/18 09:20; Admin Dose 220 MG; Start 05/16/18 at 09:00 Ascorbic Acid (Vitamin C) 250 mg DAILY GTB Last administered on 05/17/18 09:21; Admin Dose 250 MG; Start 05/16/18 at 09:00 Chlorhexidine Gluconate (Peridex) 15 ml Q12 MM Last administered on 05/17/18 09:20; Admin Dose 15 ML; Start 05/15/18 at 16:30 Levetiracetam (Keppra Liquid) 500 mg Q12 GTB Last administered on 05/17/18 09:20; Admin Dose 500 MG; Start 05/15/18 at 16:30 Quetiapine Fumarate (Seroquel) 50 mg BID GTB Last administered on 05/17/18at 09:21; Admin Dose 50 MG; Start 05/15/18 at 21:00 IV Flush (NS 10 ml) 10 ml PRN PRN IV IV PROTOCOL; Start 05/15/18 at 18:30 Docusate Sodium (Colace Liquid Cup) 100 mg BID GTB Last administered on at 20:04; Admin Dose 100 MG; Start 05/15/18 at 21:00 Dextrose/Sodium Chloride 1,000 ml @ 100 mls/hr Q10H IV Last administered on 05/17/18at 16:13; Admin Dose 100 MLS/HR; Start 05/16/18 at 10:00 AISSATOU DUNCAN May 17, 2018 17:41
--- NOTE | 2018-05-17 18:12 | PN ---
DATE: 05/17/2018 SUBJECTIVE: The patient is in ICU on the ventilator support. He is awake and responsive. His BP is being maintained with a small dose of Levophed at 2 mcg dosage. PHYSICAL EXAMINATION: VITAL SIGNS: The most recent vital signs show a blood pressure of 94/61, pulse rate 93, respirations 20, pulse oximetry 99% saturation with a respiratory rate of 20. The temperature was 98.2 earlier t millie. NECK: Tracheal secretions are minimal to moderate. No bleeding seen. No purulent secretions. HEAR T: Regular sinus rhythm. CHEST: Breath sounds are heard bilaterally diminished in the lower lung [place] at the lung bases wit h a few intermittent rales and rhonchi. ABDOMEN: Soft, tolerating G-tube feedings. Bowel sounds are present. EXTREMITIES: Show no edema. He is paraplegic. LABORATORY DATA: Shows progressively decreasing WBC count of 7900 today. Earlier yesterday, it was 14,700. Hemoglobin 7.5, hematocrit 26, platelets within normal limits. The chemistry panel from [facility] shows sodium 146, potassium 3.4, BUN down to 88, creatinine down to 2.13 and glucose of 111. The sputum culture shows Providencia stuartii. IMPRESSION: 1. Septic shock. 2. Healthcare-acquired pneumonia. 3. Chronic ventilator-dependent respiratory failure. 4. Acute on chronic renal failure. 5. History of nephrolithiasis. 6. History of neurogenic bladder. 7. 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 8. History of bipolar disorder with psychosis. 9. Status post tracheostomy. 10. Status post gastrostomy. 11. Status post suprapubic cystostomy. RECOMMENDATIONS 1. Continue ventilator support retirement. 2. Continue antibiotics per infectious disease image consultant's recommendations. 3. Continue bronchodilator inhalation therapy. 4. Continue G-tube feeding. 5. Continue deep venous thrombosis prophylaxis. 6. Continue gastrointestinal prophylaxis. Dictated By: HUMBERTO PEREZ MD SR/NTS Conf#: [id number] DID#: [id number] CC: JOSÉ ANTONIO MIRZA MD;*EndCC*
[2018-05-17] MEDS: D5W-0.45 NACL + KCL 20 MEQ 1,000 ML IV SCH (19:35)
[2018-05-18] VITALS (57 sets, daily range): BP systolic 87–135; BP diastolic 52–102; PULSE 98–133; RESP 20–36
[2018-05-18] MEDS: HYDROmorphONE 0.5 MG/0.5 ML SYG IV PRN ×6 (01:01→20:48)
[2018-05-18] MEDS: ALBUTEROL HFA 8 GM INHALER INH SCH ×4 (01:07→19:26)
[2018-05-18] MEDS: IPRATROPIUM (HFA) 12.9 GM INHALER INH SCH ×4 (01:07→19:26)
[2018-05-18] MEDS: DOCUSATE SODIUM 10 MG/ML (10ML CUP) GTB SCH ×2 (07:53→20:48)
--- NOTE | 2018-05-18 10:21 | CONS ---
Assessment/Plan Assessment/Plan Assessment/Plan (Daily) 1. Acute on chronic renal failure 2. Hypernatremia 3. UTI 4. history of paraplegia secondary to cervical spine injury, ventilator dependent respiratory failure with striking ostomy, dysphagia with G-tube, neurogenic bladder with suprapubic catheter, right nephrectomy, left renal renal nephrolithiasis with history of lithotripsy and stent placement and urethral stent removal, history of bipolar disorder Plan: BUN/Cr improved to 71/1.84, K normal, HCo3 20, na 147, Continue IVF D51/2NS with KCl 20mEQ at 80 cc/hr IV abx zyvox and meropenem as per ID, Renally dose all abx and monitor electrlytes and replace as needed will follow up Consultation Date/Type/Reason Admit Date/Time May 14, 2018 at 18:34 Initial Consult Date 05/15/18 Type of Consult NEPHROLOGY Requesting Provider: JOSÉ ANTONIO MIRZA MD Date/Time of Note DATE: 05/18/18 TIME: 10:21 Exam/Review of Systems Exam Vitals Vital Signs Date Temp Pulse Resp B/P (MAP) Pulse Ox O2 O2 Flow FiO2 Time Delivery Rate 05/18/18 119 27 115/80 97 06:15 (92) 05/18/18 Mechanical 06:00 Ventilator 05/18/18 40 05:10 05/18/18 99.0 04:00 Intake and Output 05/17/18 05/17/18 05/18/18 1515:00 23:00 07:00 IntakeIntake Total 1578.5 ml 1396.0 ml 1075 ml OutputOutput Total 725 ml 1035 ml 730 ml BalanceBalance 853.5 ml 361.0 ml 345 ml Exam Constitutional: alert, oriented Neck: supple, + tracheostomy, site is clear Respiratory: decreasesd BS at bases, no wheezing, no crackles Cardiovascular: regular rate and rhythm, other (Tachycardic) Gastrointestinal: soft, non-tender, other (G-tube) Genitourinary - Male: other (Suprapubic catheter) Extremities: normal pulses, other (Contracted) Neurological: other (Paraplegia) Skin: other (Multiple wounds) Results Result Diagram: 05/18/18 0440 05/18/18 0440 Results 24hrs Laboratory Tests Test 05/18/18 04:40 White Blood Count 5.6 # Red Blood Count 2.66 L Hemoglobin 7.4 L Hematocrit 25.4 L Mean Corpuscular Volume 95.5 Mean Corpuscular Hemoglobin 27.8 L Mean Corpuscular Hemoglobin Concent 29.1 L Red Cell Distribution Width 15.9 H Platelet Count 155 Mean Platelet Volume 12.4 H Immature Granulocytes % 0.500 H Neutrophils % 82.3 H Lymphocytes % 6.0 L Monocytes % 5.5 Eosinophils % 5.5 Basophils % 0.2 Nucleated Red Blood Cells % 0.0 Immature Granulocytes # 0.030 Neutrophils # 4.6 Lymphocytes # 0.3 L Monocytes # 0.3 Eosinophils # 0.3 Basophils # 0.0 Nucleated Red Blood Cells # 0.0 Sodium Level 147 H Potassium Level 3.8 Chloride Level 117 H Carbon Dioxide Level 20 L Anion Gap 10 Blood Urea Nitrogen 71 H Creatinine 1.84 H Est Glomerular Filtrat Rate mL/min 41 L Glucose Level 102 Calcium Level 7.6 L Medications Medication Current Medications IV Flush (NS 3 ml) 3 ml PER PROTOCOL IV ; Start 05/14/18 at 18:30 Lorazepam (Ativan) 0.5 mg Q6H PRN IV .ANXIETY; Start 05/14/18 at 18:30 Ondansetron HCl (Zofran Inj) 4 mg Q6H PRN IV NAUSEA/VOMITING; Start 05/14/18 at 18:30 Acetaminophen/ Hydrocodone Bitart ([place] (5/325)) 1 tab Q6H PRN PO .PAIN 4-6; Start 05/14/18 at 18:30 Acetaminophen/ Hydrocodone Bitart ([place] (5/325)) 2 tab Q6H PRN PO .PAIN 7-10 Last administered on 05/16/18at 00:15; Admin Dose 2 TAB; Start 05/14/18 at 18:30 Hydromorphone HCl (Dilaudid) 0.5 mg Q4H PRN IV .PAIN 7-10 Last administered on 05/18/18at 09:24; Admin Dose 0.5 MG; Start 05/14/18 at 18:30 Docusate Sodium (Colace) 100 mg Q12H PRN PO .CONSTIPATION; Start 05/14/18 at 18:30 Magnesium Hydroxide (Milk Of Mag) 30 ml DAILY PRN PO .CONSTIPATION; Start 05/14/18 at 18:30 Famotidine (Pepcid) 20 mg DAILY PO Last administered on 05/17/18 09:21; Admin Dose 20 MG; Start 05/14/18 at 21:00 Enoxaparin Sodium (Lovenox) 30 mg DAILY SC Last administered on 05/17/18 09:34; Admin Dose 30 MG; Start 05/15/18 at 09:00 Miscellaneous Information (Pending Santyl Order For Wound Care) This patient noriega... PRN PRN XX WOUND CARE; Start 05/14/18 at 23:00 Phenylephrine HCl 250 ml @ 75 mls/hr TITRATE IV Last administered on 05/16/18 14:59; Admin Dose 15 MLS/HR; Start 05/15/18 at 07:00 Acetaminophen (Tylenol Liquid) 650 mg Q6 PRN PO MILD PAIN(1-3)OR ELEVATED TEMP Last administered on 05/16/18 21:13; Admin Dose 650 MG; Start 05/15/18 at 07:00 Albuterol (Ventolin Hfa) 4 puff Q6H RESP THERAPY INH Last administered on 05/18/18 07:46; Admin Dose 4 PUFF; Start 05/15/18 at 14:00 Ipratropium [place] (Atrovent Hfa) 4 puff Q6H RESP THERAPY INH Last a dministered on 05/18/18 07:46; Admin Dose 4 PUFF; Start 05/15/18 at 14:00 Collagenase (Santyl) 1 applic DAILY TOP Last administered on 05/17/18 09:21; Admin Dose 1 APPLIC; Start 05/15/18 at 13:00 Meropenem/Sodium Chloride 50 ml @ 100 mls/hr Q12 IVPB Last administered on 05/17/18 20:23; Admin Dose 100 MLS/HR; Start 05/15/18 at 16:00 Linezolid 300 ml @ 300 mls/hr Q12 IVPB Last administered on 05/17/18 21:12; Admin Dose 300 MLS/HR; Start 05/15/18 at 15:00 Multivit/Ca Carb/ B Cmplx/FA/Prenat (Lilibeth-Linn) 1 tab DAILY GTB Last administered on 05/17/18 09:21; Admin Dose 1 TAB; Start 05/16/18 at 09:00 Zinc Sulfate (Zinc Sulfate) 220 mg DAILY GTB Last administered on 05/17/18 09:20; Admin Dose 220 MG; Start 05/16/18 at 09:00 Ascorbic Acid (Vitamin C) 250 mg DAILY GTB Last administered on 05/17/18 09:21; Admin Dose 250 MG; Start 05/16/18 at 09:00 Chlorhexidine Gluconate (Peridex) 15 ml Q12 MM Last administered on 05/17/18 20:23; Admin Dose 15 ML; Start 05/15/18 at 16:30 Levetiracetam (Keppra Liquid) 500 mg Q12 GTB Last administered on 05/17/18 20:23; Admin Dose 500 MG; Start 05/15/18 at 16:30 Quetiapine Fumarate (Seroquel) 50 mg BID GTB Last administered on 05/17/18 20:23; Admin Dose 50 MG; Start 05/15/18 at 21:00 IV Flush (NS 10 ml) 10 ml PRN PRN IV IV PROTOCOL; Start 05/15/18 at 18:30 Docusate Sodium (Colace Liquid Cup) 100 mg BID GTB Last administered on 05/17/18 20:23; Admin Dose 100 MG; Start 05/15/18 at 21:00 Potassium Chloride/Dextrose/ Sod Cl 1,000 ml @ 80 mls/hr [id number] IV Last administered on 05/17/18 19:35; Admin Dose 80 MLS/HR; Start 05/17/18 at 19:30 TIARA CISNEROS MD May 18, 2018 10:21
[2018-05-18] MEDS: D5W-0.45 NACL + KCL 20 MEQ 1,000 ML IV SCH ×2 (10:33→21:47)
[2018-05-18] MEDS: LEVETIRACETAM (100 MG/ML) 5ML CUP GTB SCH ×2 (10:33→20:49)
[2018-05-18] MEDS: MEROPENEM 500MG/50 ML (PMX) 50 ML IVPB SCH ×2 (10:33→20:49)
[2018-05-18] MEDS: LINEZOLID 600 MG/D5W (PMX) 300 ML IVPB SCH ×2 (10:33→20:48)
[2018-05-18] MEDS: COLLAGENASE 5 GM (UD JAR) TOP SCH (10:33)
[2018-05-18] MEDS: CHLORHEXIDINE GLUCONATE 15 ML UD CUP MM SCH ×2 (10:34→20:48)
[2018-05-18] MEDS: ASCORBIC ACID 250 MG TAB GTB SCH (10:34)
[2018-05-18] MEDS: ZINC SULFATE 220 MG CAP GTB SCH (10:34)
[2018-05-18] MEDS: FAMOTIDINE 20 MG TAB PO SCH (10:34)
[2018-05-18] MEDS: MULTIVIT/CA CARB/B CMPLX/FA TAB GTB SCH (10:34)
[2018-05-18] MEDS: QUETIAPINE 25 MG TAB GTB SCH ×2 (10:34→20:48)
[2018-05-18] MEDS: ENOXAPARIN 30 MG/0.3 ML SYG SC SCH (11:14)
[2018-05-18] MEDS: LORAZEPAM 2 MG INJ IV PRN (12:19)
--- NOTE | 2018-05-18 12:53 | CONS ---
Assessment/Plan Assessment/Plan Hospital Course (Demo Recall) Off pressors alert complaining of pain looks comfortable, T-max guarding 100.5 WBC today 5.6 neutrophils 82.3 Chest x-ray this morning revealed decreased right basilar infiltrates and residual disease was overall improved I aeration Microbiology: Urine culture grew Proteus mirabilis, sputum culture growing further dentia, blood culture grew gram-positive cocci in clusters 1 out of 2 sets Indwelling: Trach, PEG, PICC line, suprapubic catheter Allergies: Tetracycline Antimicrobials: Meropenem, Zyvox Physical examination: Chronically ill-appearing middle-aged man who is in no distress. Head atraumatic normocephalic neck is supple chest rise symmetrical breath sounds diminished bases. Heart: S1-S2. Abdomen soft bowel sounds present. Extremities wasted without cyanosis Assessment: 1. Severe sepsis with shock and bacteremia, poss contaminant 2. Healthcare associated pneumonia 3. Urinary tract infection 4. Chronic respiratory failure and dysphagia 5. Acute on chronic kidney disease 6. Neurogenic bladder status post suprapubic catheter placement 7. Incomplete quadriplegia 8. History of nephrectomy 9. History of scabies 10. Multiple chronic wounds Plan: Stable off pressors, on appropriate antibiotic regimen, WBC trending down, pending final blood cultures Consultation Date/Type/Reason Admit Date/Time May 14, 2018 at 18:34 Initial Consult Date 05/15/18 Type of Consult id Requesting Provider: JOSÉ ANTONIO MIRZA MD Date/Time of Note DATE: 05/18/18 TIME: 12:52 Exam/Review of Systems Exam Vitals Vital Signs Date Temp Pulse Resp B/P (MAP) Pulse Ox O2 O2 Flow FiO2 Time Delivery Rate 05/18/18 118 23 108/70 97 Mechanica 11:00 (83) l Ventilato r 05/18/18 100.5 10:00 05/18/18 40 05:10 Intake and Output 05/17/18 05/17/18 05/18/18 1515:00 23:00 07:00 IntakeIntake Total 1578.5 ml 1396.0 ml 1075 ml OutputOutput Total 725 ml 1035 ml 730 ml BalanceBalance 853.5 ml 361.0 ml 345 ml Results Result Diagram: 05/18/1843905/18/18439 Results 24hrs Laboratory Tests Test 05/18/18 04:40 White Blood Count 5.6 # Red Blood Count 2.66 L Hemoglobin 7.4 L Hematocrit 25.4 L Mean Corpuscular Volume 95.5 Mean Corpuscular Hemoglobin 27.8 L Mean Corpuscular Hemoglobin Concent 29.1 L Red Cell Distribution Width 15.9 H Platelet Count 155 Mean Platelet Volume 12.4 H Immature Granulocytes % 0.500 H Neutrophils % 82.3 H Lymphocytes % 6.0 L Monocytes % 5.5 Eosinophils % 5.5 Basophils % 0.2 Nucleated Red Blood Cells % 0.0 Immature Granulocytes # 0.030 Neutrophils # 4.6 Lymphocytes # 0.3 L Monocytes # 0.3 Eosinophils # 0.3 Basophils # 0.0 Nucleated Red Blood Cells # 0.0 Sodium Level 147 H Potassium Level 3.8 Chloride Level 117 H Carbon Dioxide Level 20 L Anion Gap 10 Blood Urea Nitrogen 71 H Creatinine 1.84 H Est Glomerular Filtrat Rate mL/min 41 L Glucose Level 102 Calcium Level 7.6 L Medications Medication Current Medications IV Flush (NS 3 ml) 3 ml PER PROTOCOL IV ; Start 05/14/18 at 18:30 Lorazepam (Ativan) 0.5 mg Q6H PRN IV .ANXIETY Last administered on 05/18/18at 12:19; Admin Dose 0.5 MG; Start 05/14/18 at 18:30 Ondansetron HCl (Zofran Inj) 4 mg Q6H PRN IV NAUSEA/VOMITING; Start 05/14/18 at 18:30 Acetaminophen/ Hydrocodone Bitart ([place] (5/325)) 1 tab Q6H PRN PO .PAIN 4-6; Start 05/14/18 at 18:30 Acetaminophen/ Hydrocodone Bitart ([place] (5/325)) 2 tab Q6H PRN PO .PAIN 7-10 Last administered on 05/16/18at 00:15; Admin Dose 2 TAB; Start 05/14/18 at 18:30 Hydromorphone HCl (Dilaudid) 0.5 mg Q4H PRN IV .PAIN 7-10 Last administered on 05/18/18at 09:24; Admin Dose 0.5 MG; Start 05/14/18 at 18:30 Docusate Sodium (Colace) 100 mg Q12H PRN PO .CONSTIPATION; Start 05/14/18 at 18:30 Magnesium Hydroxide (Milk Of Mag) 30 ml DAILY PRN PO .CONSTIPATION; Start 05/14/18 at 18:30 Famotidine (Pepcid) 20 mg DAILY PO Last administered on 05/18/18 10:34; Admin Dose 20 MG; Start 05/14/18 at 21:00 Enoxaparin Sodium (Lovenox) 30 mg DAILY SC Last administered on 05/18/18 11:14; Admin Dose 30 MG; Start 05/15/18 at 09:00 Miscellaneous Information (Pending Santyl Order For Wound Care) This patient noriega... PRN PRN XX WOUND CARE; Start 05/14/18 at 23:00 Phenylephrine HCl 250 ml @ 75 mls/hr TITRATE IV Last administered on 05/16/18 14:59; Admin Dose 15 MLS/HR; Start 05/15/18 at 07:00 Acetaminophen (Tylenol Liquid) 650 mg Q6 PRN PO MILD PAIN(1-3)OR ELEVATED TEMP Last administered on 05/16/18 21:13; Admin Dose 650 MG; Start 05/15/18 at 07:00 Albuterol (Ventolin Hfa) 4 puff Q6H RESP THERAPY INH Last administered on 05/18/18 07:46; Admin Dose 4 PUFF; Start 05/15/18 at 14:00 Ipratropium [place] (Atrovent Hfa) 4 puff Q6H RESP THERAPY INH Last administered on 05/18/18 07:46; Admin Dose 4 PUFF; Start 05/15/18 at 14:00 Collagenase (Santyl) 1 applic DAILY TOP Last administered on 05/18/18 10:33; Admin Dose 1 APPLIC; Start 05/15/18 at 13:00 Meropenem/Sodium Chloride 50 ml @ 100 mls/hr Q12 IVPB Last administered on 05/18/18 10:33; Admin Dose 100 MLS/HR; Start 05/15/18 at 16:00 Linezolid 300 ml @ 300 mls/hr Q12 IVPB Last administered on 05/18/18 10:33; Admin Dose 300 MLS/HR; Start 05/15/18 at 15:00 Multivit/Ca Carb/ B Cmplx/FA/Prenat ([place]) 1 tab DAILY GTB Last administered on 05/18/18 10:34; Admin Dose 1 TAB; Start 05/16/18 at 09:00 Zinc Sulfate (Zinc Sulfate) 220 mg DAILY GTB Last administered on 05/18/18 10:34; Admin Dose 220 MG; Start 05/16/18 at 09:00 Ascorbic Acid (Vitamin C) 250 mg DAILY GTB Last administered on 05/18/18 10:34; Admin Dose 250 MG; Start 05/16/18 at 09:00 Chlorhexidine Gluconate (Peridex) 15 ml Q12 MM Last administered on 05/18/18 10:34; Admin Dose 15 ML; Start 05/15/18 at 16:30 Levetiracetam (Keppra Liquid) 500 mg Q12 GTB Last administered on 05/18/18 10:33; Admin Dose 500 MG; Start 05/15/18 at 16:30 Quetiapine Fumarate (Seroquel) 50 mg BID GTB Last administered on 05/18/18 10:34; Admin Dose 50 MG; Start 05/15/18 at 21:00 IV Flush (NS 10 ml) 10 ml PRN PRN IV IV PROTOCOL; Start 05/15/18 at 18:30 Docusate Sodium (Colace Liquid Cup) 100 mg BID GTB Last administered on 05/17/18 20:23; Admin Dose 100 MG; Start 05/15/18 at 21:00 Potassium Chloride/Dextrose/ Sod Cl 1,000 ml @ 80 mls/hr [id number] IV Last administered on 05/18/18 10:33; Admin Dose 80 MLS/HR; Start 05/17/18 at 19:30 REGINALDO [employer] May 18, 2018 12:53
--- NOTE | 2018-05-18 15:41 | PN ---
DATE: 05/18/2018 SUBJECTIVE: The patient is in ICU on the ventilator support. He is breathing comfortably, synchroni zed with the ventilator. His blood pressure has been off Ozzy-Synephrine since 8:00 p.m. last night. He is having a low-grade fever of 100.5 this morning. OBJECTIVE: VITAL SIGNS: Show blood pressure 108/70, pulse rate 118, respirations 23, pulse oximetry 97% saturat ion. NECK: Tracheal secretions are minimal to moderate. No bleeding or purulent seen. HEART: Regular rhythm with sinus tachycardia. CHEST: Breath sounds are heard bilaterally, but diminished in both the lower lung tierney with a few intermittent rales and rhonchi, but seems to be clearing. ABDOMEN: Soft. No distention seen, tolerating G-tube feedings. Bowel sounds are present. EXTREMITIES: Show no edema. He is paraplegic. LABORATORY TEST RESULTS: From today show improving renal status. Sodium 147, potassium 3.8, BUN is 71, creatinine 1.84. Both BUN and creatinine are decreasing. Glucose of 102. CBC shows WBC count a lso down to 5600, hemoglobin 7.4, hematocrit 25.4, platelets within normal limits at 155,000. The sputum culture is reported to show growth of Providencia stuartii and Pseudomonas aeruginosa. Ur ine culture shows Proteus mirabilis. DIAGNOSTIC DATA: Chest x-ray taken today is reported to show decreased right basilar infiltrates, bu t residual changes are still present, but overall improving. IMPRESSION: 1. Septic shock, improving. 2. Healthcare-acquired pneumonia. 3. Chronic ventilator dependent respiratory failure. 4. Acute on chronic renal failure. 5. History of nephrolithiasis. 6. History of neurogenic bladder. 7. 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 8. History of bipolar disorder with psychosis. 9. Status post tracheostomy. 10. Status post gastrostomy. 11. Status post suprapubic cystostomy. RECOMMENDATIONS: 1. Continue long-term ventilator support. 2. Continue antibiotics per infectious disease men's custom hair piece consultant's recommendations. 3. Continue bronchodilator inhalation therapy to clear the secretions and maintain pulmonary hygiene . 4. Continue G-tube feedings. 5. Continue deep venous thrombosis prophylaxis. 6. Continue gastrointestinal prophylaxis. Dictated By: HUMBERTO PEREZ MD SR/QUE Conf#: [id number] DID#: [id number] CC: JOSÉ ANTONIO MIRZA MD;*EndCC*
--- NOTE | 2018-05-18 16:14 | PN ---
Date/Time of Note Date/Time of Note DATE: 05/18/18 TIME: 15:56 Assessment/Plan VTE Prophylaxis Risk score (from [facility] [place])>0 risk: 8 SCD applied (from [facility] [place]): No SCD contraindicated: other Pharmacological prophylaxis: other Pharm contraindication: other Lines/Catheters IV Catheter Type (from [facility]): PICC Line Central line still needed: Yes Assessment/Plan Assessment/Plan - Sepsis secondary to pneumonia, continue antibiotics per ID. Dr. Maciel is following in infection disease consultation. - Health care associated pneumonia - Proteus M UTI - Acute on chronic renal failure, continue IV fluids. Continue to monitor BUN and creatinine. Dr. Barker is following patient in nephrology consultation. - Ventilator dependent respiratory failure, continue pulmonary toilet and bronchodilators. Dr Ames is following in pulmonology consultation. - Neurogenic bladder with suprapubic catheter. - Left renal nephrolithiasis, hx of lithotripsy with insertion and subsequent removal of ureteral JJ stent. - Hx of right nephrectomy - Dysphagia with gastrostomy tube. - Multiple decubitus ulcers present on admission. Continue current care per wound consult recommendations, offloading air mattress, optimize nutrition. - Cervical spine injury with paraplegia. - Bipolar disorder with psychosis. Critical care time spent is 30 minutes. Further recommendations based on clinical course. Plan of care discussed with Dr. Barreto. Result Diagram: 05/18/18 0440 05/18/18 0440 Results 24hrs Laboratory Tests Test 05/18/18 04:40 White Blood Count 5.6 # Red Blood Count 2.66 L Hemoglobin 7.4 L Hematocrit 25.4 L Mean Corpuscular Volume 95.5 Mean Corpuscular Hemoglobin 27.8 L Mean Corpuscular Hemoglobin Concent 29.1 L Red Cell Distribution Width 15.9 H Platelet Count 155 Mean Platelet Volume 12.4 H Immature Granulocytes % 0.500 H Neutrophils % 82.3 H Lymphocytes % 6.0 L Monocytes % 5.5 Eosinophils % 5.5 Basophils % 0.2 Nucleated Red Blood Cells % 0.0 Immature Granulocytes # 0.030 Neutrophils # 4.6 Lymphocytes # 0.3 L Monocytes # 0.3 Eosinophils # 0.3 Basophils # 0.0 Nucleated Red Blood Cells # 0.0 Sodium Level 147 H Potassium Level 3.8 Chloride Level 117 H Carbon Dioxide Level 20 L Anion Gap 10 Blood Urea Nitrogen 71 H Creatinine 1.84 H Est Glomerular Filtrat Rate mL/min 41 L Glucose Level 102 Calcium Level 7.6 L Subjective 24 Hr Interval Summary Free Text/Dictation -nad - tolerates GT feeding - afebrile -ok for tele transfer - will get speech/swallow evaluation - no new issues reported last night per staff Subjective hx not possible: pt non-verbal Constitutional: requiring O2 ENT: no complaints Respiratory: no complaints Cardiovascular: no complaints Gastrointestinal: no complaints Genitourinary: no complaints Musculoskeletal: restricted range of motion, other (generelized body pain) Skin: no complaints Neurologic: no complaints Psychological: nl mood/affect Immunologic: no complaints Exam/Review of Systems Exam Vitals Vital Signs Date Temp Pulse Resp B/P (MAP) Pulse Ox O2 O2 Flow FiO2 Time Delivery Rate 05/18/18 117 12:00 05/18/18 23 108/70 97 Mechanica 11:00 (83) l Ventilato r 05/18/18 100.5 10:00 05/18/18 40 05:10 Intake and Output 05/17/18 05/17/18 05/18/18 1515:00 23:00 07:00 IntakeIntake Total 1578.5 ml 1396.0 ml 1075 ml OutputOutput Total 725 ml 1035 ml 730 ml BalanceBalance 853.5 ml 361.0 ml 345 ml Constitutional: alert, well developed, non-verbal, frail Psych: nl mood/affect Head: normocephalic Eyes: nl lids, nl sclera ENMT: nl external ears & nose Neck: non-tender, other (Trach intact) Respiratory: clear to auscultation Cardiovascular: nl pulses, other (s1s2) Gastrointestinal: soft, non-tender, other (gt intact ) Musculoskeletal: muscle weakness, range of motion Extremities: normal pulses Neurological: other (alert/responsive) Lymph: nontender Results Results 24hrs Laboratory Tests Test 05/18/18 04:40 White Blood Count 5.6 # Red Blood Count 2.66 L Hemoglobin 7.4 L Hematocrit 25.4 L Mean Corpuscular Volume 95.5 Mean Corpuscular Hemoglobin 27.8 L Mean Corpuscular Hemoglobin Concent 29.1 L Red Cell Distribution Width 15.9 H Platelet Count 155 Mean Platelet Volume 12.4 H Immature Granulocytes % 0.500 H Neutrophils % 82.3 H Lymphocytes % 6.0 L Monocytes % 5.5 Eosinophils % 5.5 Basophils % 0.2 Nucleated Red Blood Cells % 0.0 Immature Granulocytes # 0.030 Neutrophils # 4.6 Lymphocytes # 0.3 L Monocytes # 0.3 Eosinophils # 0.3 Basophils # 0.0 Nucleated Red Blood Cells # 0.0 Sodium Level 147 H Potassium Level 3.8 Chloride Level 117 H Carbon Dioxide Level 20 L Anion Gap 10 Blood Urea Nitrogen 71 H Creatinine 1.84 H Est Glomerular Filtrat Rate mL/min 41 L Glucose Level 102 Calcium Level 7.6 L Medications Medication Current Medications IV Flush (NS 3 ml) 3 ml PER PROTOCOL IV ; Start 05/14/18 at 18:30 Lorazepam (Ativan) 0.5 mg Q6H PRN IV .ANXIETY Last administered on 05/18/18at 12:19; Admin Dose 0.5 MG; Start 05/14/18 at 18:30 Ondansetron HCl (Zofran Inj) 4 mg Q6H PRN IV NAUSEA/VOMITING; Start 05/14/18 at 18:30 Acetaminophen/ Hydrocodone Bitart ([place] (5/325)) 1 tab Q6H PRN PO .PAIN 4-6; Start 05/14/18 at 18:30 Acetaminophen/ Hydrocodone Bitart ([place] (5/325)) 2 tab Q6H PRN PO .PAIN 7-10 Last administered on 05/16/18at 00:15; Admin Dose 2 TAB; Start 05/14/18 at 18:30 Hydromorphone HCl (Dilaudid) 0.5 mg Q4H PRN IV .PAIN 7-10 Last administered on 05/18/18at 13:11; Admin Dose 0.5 MG; Start 05/14/18 at 18:30 Docusate Sodium (Colace) 100 mg Q12H PRN PO .CONSTIPATION; Start 05/14/18 at 18:30 Magnesium Hydroxide (Milk Of Mag) 30 ml DAILY PRN PO .CONSTIPATION; Start 05/14/18 at 18:30 Famotidine (Pepcid) 20 mg DAILY PO Last administered on 05/18/18at 10:34; Admin Dose 20 MG; Start 05/14/18 at 21:00 Enoxaparin Sodium (Lovenox) 30 mg DAILY SC Last administered on 05/18/18at 11:14 ; Admin Dose 30 MG; Start 05/15/18 at 09:00 Miscellaneous Information (Pending Santyl Order For Wound Care) This patient noriega... PRN PRN XX WOUND CARE; Start 05/14/18 at 23:00 Phenylephrine HCl 250 ml @ 75 mls/hr TITRATE IV Last administered on 05/16/18 14:59; Admin Dose 15 MLS/HR; Start 05/15/18 at 07:00 Acetaminophen (Tylenol Liquid) 650 mg Q6 PRN PO MILD PAIN(1-3)OR ELEVATED TEMP Last administered on 05/16/18 21:13; Admin Dose 650 MG; Start 05/15/18 at 07:00 Albuterol (Ventolin Hfa) 4 puff Q6H RESP THERAPY INH Last administered on 05/18/18 13:21; Admin Dose 4 PUFF; Start 05/15/18 at 14:00 Ipratropium [place] (Atrovent Hfa) 4 puff Q6H RESP THERAPY INH Last administered on 05/18/18 13:21; Admin Dose 4 PUFF; Start 05/15/18 at 14:00 Collagenase (Santyl) 1 applic DAILY TOP Last administered on 05/18/18 10:33; Admin Dose 1 APPLIC; Start 05/15/18 at 13:00 Meropenem/Sodium Chloride 50 ml @ 100 mls/hr Q12 IVPB Last administered on 05/18/18 10:33; Admin Dose 100 MLS/HR; Start 05/15/18 at 16:00 Linezolid 300 ml @ 300 mls/hr Q12 IVPB Last administered on 05/18/18 10:33; Admin Dose 300 MLS/HR; Start 05/15/18 at 15:00 Multivit/Ca Carb/ B Cmplx/FA/Prenat ([place]-L[place]) 1 tab DAILY GTB Last administered on 05/18/18 10:34; Admin Dose 1 TAB; Start 05/16/18 at 09:00 Zinc Sulfate (Zinc Sulfate) 220 mg DAILY GTB Last administered on 05/18/18 10:34; Admin Dose 220 MG; Start 05/16/18 at 09:00 Ascorbic Acid (Vitamin C) 250 mg DAILY GTB Last administered on 05/18/18 10:34; Admin Dose 250 MG; Start 05/16/18 at 09:00 Chlorhexidine Gluconate (Peridex) 15 ml Q12 MM Last administered on 05/18/18 10:34; Admin Dose 15 ML; Start 05/15/18 at 16:30 Levetiracetam (Keppra Liquid) 500 mg Q12 GTB Last administered on 05/18/18 10:33; Admin Dose 500 MG; Start 05/15/18 at 16:30 Quetiapine Fumarate (Seroquel) 50 mg BID GTB Last administered on 05/18/18 10:34; Admin Dose 50 MG; Start 05/15/18 at 21:00 IV Flush (NS 10 ml) 10 ml PRN PRN IV IV PROTOCOL; Start 05/15/18 at 18:30 Docusate Sodium (Colace Liquid Cup) 100 mg BID GTB Last administered on 05/17/18at 20:23; Admin Dose 100 MG; Start 05/15/18 at 21:00 Potassium Chloride/Dextrose/ Sod Cl 1,000 ml @ 80 mls/hr [id number] IV Last administered on 05/18/18 10:33; Admin Dose 80 MLS/HR; Start 05/17/18 at 19:30 NAE VELAZCO May 18, 2018 16:08
[2018-05-18] MEDS: HYDROCODONE/APAP (5/325) TAB PO PRN (23:39)
[2018-05-19] VITALS (21 sets, daily range): BP systolic 104–120; BP diastolic 70–80; PULSE 99–117; RESP 19–30
[2018-05-19] MEDS: HYDROmorphONE 0.5 MG/0.5 ML SYG IV PRN ×6 (01:26→21:58)
[2018-05-19] MEDS: LORAZEPAM 2 MG INJ IV PRN (01:56)
[2018-05-19] MEDS: D5W-0.45 NACL + KCL 20 MEQ 1,000 ML IV SCH ×3 (01:59→18:00)
[2018-05-19] MEDS: ALBUTEROL HFA 8 GM INHALER INH SCH ×4 (02:00→20:16)
[2018-05-19] MEDS: IPRATROPIUM (HFA) 12.9 GM INHALER INH SCH ×4 (02:00→20:16)
[2018-05-19] MEDS: DOCUSATE SODIUM 10 MG/ML (10ML CUP) GTB SCH ×2 (09:00→20:34)
[2018-05-19] MEDS: FAMOTIDINE 20 MG TAB PO SCH (10:05)
[2018-05-19] MEDS: MULTIVIT/CA CARB/B CMPLX/FA TAB GTB SCH (10:05)
[2018-05-19] MEDS: ZINC SULFATE 220 MG CAP GTB SCH (10:06)
[2018-05-19] MEDS: QUETIAPINE 25 MG TAB GTB SCH ×2 (10:06→20:29)
[2018-05-19] MEDS: LEVETIRACETAM (100 MG/ML) 5ML CUP GTB SCH ×2 (10:07→20:28)
[2018-05-19] MEDS: LINEZOLID 600 MG/D5W (PMX) 300 ML IVPB SCH (10:08)
[2018-05-19] MEDS: CHLORHEXIDINE GLUCONATE 15 ML UD CUP MM SCH ×2 (10:17→20:28)
[2018-05-19] MEDS: ENOXAPARIN 30 MG/0.3 ML SYG SC SCH (10:28)
--- NOTE | 2018-05-19 10:32 | CONS ---
Assessment/Plan Assessment/Plan Hospital Course (Demo Recall) ID PROGRESS NOTE CURRENT ABX: DAY #5 => Zyvox + Merrem 05/18/18 0440 05/19/18 0601 24H INTERVAL SUMMARY * Awake, alert, able to communicate -- RT present performing suction, VSS, NAD, feeling better, no fevers, WBC normalized * Indwelling: Trach, PEG, PICC line, suprapubic catheter DIAGNOSTIC IMAGING * Chest x-ray this morning revealed decreased right basilar infiltrates and residual disease was overall improved I aeration MICRO/OTHER * : Urine culture grew Proteus mirabilis * Sputum culture growing GNR x2 * RESPIRATORY CULTURE Final Organism 1 PROVIDENCIA STUARTII QUANTITY SCANT GROWTH Organism 2 PSEUDOMONAS AERUGINOSA QUANTITY SCANT GROWTH * Blood culture grew COAGULASE NEGATIVE STAPH 1 out of 2 sets PHYSICAL EXAMINATION: GENERAL: VSS, NAD HEENT: AT, NC, anicteric, NECK: Supple, TRACH in place CHEST: Equal chest rise bilaterally, without dyspnea on observation HEART: Pulse RRR ABDOMEN: Soft / NT : SUPRAPUBIC CATHETER EXTREMITIES: Warm, dry - Extremities wasted without cyanosis SKIN: No rash, no diaphoresis ID ASSESSMENT 42 yo M admit with: 1. s/p Severe sepsis with shock and bacteremia= contaminant => resolving 2. Healthcare associated pneumonia 3. Urinary tract infection= COMPLICATED UTI W/ SEPSIS AND SUPRAPUBIC CATHETER 4. Chronic respiratory failure and dysphagia 5. Acute on chronic kidney disease 6. Neurogenic bladder status post suprapubic catheter placement 7. Incomplete quadriplegia 8. History of nephrectomy 9. History of scabies 10. Multiple chronic wounds 11. Anemia (-)MRSA Nares ABX ALLERGIES: TETRACYCLINEs INVASIVES: PIV CURRENT ABX: DAY # 5 => Zyvox + Merrem ID RECOMMENDATIONS/PLAN: 1. Continue Merrem ~7-10 days due to presence of suprapubic catheter = COMPLICATED UTI 2. DC Zyvox . Consultation Date/Type/Reason Admit Date/Time May 14, 2018 at 18:34 Initial Consult Date 05/15/18 Requesting Provider: JOSÉ ANTONIO MIRZA MD Date/Time of Note DATE: 05/19/18 TIME: 10:31 Exam/Review of Systems Exam Vitals Vital Signs Date Temp Pulse Resp B/P (MAP) Pulse Ox O2 O2 Flow FiO2 Time Delivery Rate 05/19/18 99 08:22 05/19/18 98.3 20 109/74 96 07:39 (86) 05/19/18 30 07:35 05/18/18 Mechanical 22:24 Ventilator Intake and Output 05/18/18 05/18/18 05/19/18 1515:00 23:00 07:00 IntakeIntake Total 1190 ml 825 ml 990 ml OutputOutput Total 360 ml 745 ml 700 ml BalanceBalance 830 ml 80 ml 290 ml Results Result Diagram: 05/18/18 0440 05/19/18 0601 Results 24hrs Laboratory Tests Test 05/19/18 06:01 Sodium Level 144 Potassium Level 4.2 Chloride Level 114 H Carbon Dioxide Level 21 Anion Gap 9 Blood Urea Nitrogen 59 H Creatinine 1.67 H Est Glomerular Filtrat Rate mL/min 46 L Glucose Level 108 Calcium Level 7.8 L Total Bilirubin 0.1 L Direct Bilirubin 0.00 Indirect Bilirubin 0.1 Aspartate Amino Transf (AST/SGOT) 15 Alanine Aminotransferase (ALT/SGPT) 11 L Alkaline Phosphatase 90 Total Protein 6.5 Albumin 2.7 L Globulin 3.80 H Albumin/Globulin Ratio 0.71 Medications Medication Current Medications IV Flush (NS 3 ml) 3 ml PER PROTOCOL IV ; Start 05/14/18 at 18:30 Lorazepam (Ativan) 0.5 mg Q6H PRN IV .ANXIETY Last administered on 05/19/18at 01:56; Admin Dose 0.5 MG; Start 05/14/18 at 18:30 Ondansetron HCl (Zofran Inj) 4 mg Q6H PRN IV NAUSEA/VOMITING; Start 05/14/18 at 18:30 Acetaminophen/ Hydrocodone Bitart ([place] (5/325)) 1 tab Q6H PRN PO .PAIN 4-6; Start 05/14/18 at 18:30 Acetaminophen/ Hydrocodone Bitart ([place] (5/325)) 2 tab Q6H PRN PO .PAIN 7-10 Last administered on 05/18/18at 23:39; Admin Dose 2 TAB; Start 05/14/18 at 18:30 Hydromorphone HCl (Dilaudid) 0.5 mg Q4H PRN IV .PAIN 7-10 Last administered on 05/19/18at 10:09; Admin Dose 0.5 MG; Start 05/14/18 at 18:30 Docusate Sodium (Colace) 100 mg Q12H PRN PO .CONSTIPATION; Start 05/14/18 at 18:30 Magnesium Hydroxide (Milk Of Mag) 30 ml DAILY PRN PO .CONSTIPATION; Start 05/14/18 at 18:30 Famotidine (Pepcid) 20 mg DAILY PO Last administered on 05/19/18 10:05; Admin Dose 20 MG; Start 05/14/18 at 21:00 Enoxaparin Sodium (Lovenox) 30 mg DAILY SC Last administered on 05/19/18 10:28; Admin Dose 30 MG; Start 05/15/18 at 09:00 Miscellaneous Information (Pending Santyl Order For Wound Care) This patient noriega... PRN PRN XX WOUND CARE; Start 05/14/18 at 23:00 Acetaminophen (Tylenol Liquid) 650 mg Q6 PRN PO MILD PAIN(1-3)OR ELEVATED TEMP Last administered on 05/16/18 21:13; Admin Dose 650 MG; Start 05/15/18 at 07:00 Albuterol (Ventolin Hfa) 4 puff Q6H RESP THERAPY INH Last administered on 05/18/18 19:26; Admin Dose 4 PUFF; Start 05/15/18 at 14:00 Ipratropium [place] (Atrovent Hfa) 4 puff Q6H RESP THERAPY INH Last administered on 05/18/18 19:26; Admin Dose 4 PUFF; Start 05/15/18 at 14:00 Collagenase (Santyl) 1 applic DAILY TOP Last administered on 05/18/18 10:33; Admin Dose 1 APPLIC; Start 05/15/18 at 13:00 Meropenem/Sodium Chloride 50 ml @ 100 mls/hr Q12 IVPB Last administered on 05/18/18 20:49; Admin Dose 100 MLS/HR; Start 05/15/18 at 16:00 Linezolid 300 ml @ 300 mls/hr Q12 IVPB Last administered on 05/19/18 10:08; A dmin Dose 300 MLS/HR; Start 05/15/18 at 15:00 Multivit/Ca Carb/ B Cmplx/FA/Prenat (Lilibeth-Linn) 1 tab DAILY GTB Last administered on 05/19/18 10:05; Admin Dose 1 TAB; Start 05/16/18 at 09:00 Zinc Sulfate (Zinc Sulfate) 220 mg DAILY GTB Last administered on 05/19/18 10:06; Admin Dose 220 MG; Start 05/16/18 at 09:00 Ascorbic Acid (Vitamin C) 250 mg DAILY GTB Last administered on 05/18/18 10:34; Admin Dose 250 MG; Start 05/16/18 at 09:00 Chlorhexidine Gluconate (Peridex) 15 ml Q12 MM Last administered on 05/18/18 20:48; Admin Dose 15 ML; Start 05/15/18 at 16:30 Levetiracetam (Keppra Liquid) 500 mg Q12 GTB Last administered on 05/19/18 10:07; Admin Dose 500 MG; Start 05/15/18 at 16:30 Quetiapine Fumarate (Seroquel) 50 mg BID GTB Last administered on 05/19/18 10:06; Admin Dose 50 MG; Start 05/15/18 at 21:00 IV Flush (NS 10 ml) 10 ml PRN PRN IV IV PROTOCOL; Start 05/15/18 at 18:30 Docusate Sodium (Colace Liquid Cup) 100 mg BID GTB Last administered on 05/18/18 20:48; Admin Dose 100 MG; Start 05/15/18 at 21:00 Potassium Chloride/Dextrose/ Sod Cl 1,000 ml @ 80 mls/hr [id number] IV Last administered on 05/19/18 01:59; Admin Dose 80 MLS/HR; Start 05/17/18 at 19:30 KELSI [employer] May 19, 2018 10:32
[2018-05-19] MEDS: MEROPENEM 500MG/50 ML (PMX) 50 ML IVPB SCH ×2 (11:02→20:29)
--- NOTE | 2018-05-19 11:16 | CONS ---
Assessment/Plan Assessment/Plan Assessment/Plan (Daily) 1. Acute on chronic renal failure 2. Hypernatremia 3. UTI 4. history of paraplegia secondary to cervical spine injury, ventilator dependent respiratory failure with striking ostomy, dysphagia with G-tube, neurogenic bladder with suprapubic catheter, right nephrectomy, left renal renal nephrolithiasis with history of lithotripsy and stent placement and urethral stent removal, history of bipolar disorder Plan: BUN/Cr improved to 59/1.67, K normal, HCo3 21, Na 144, Continue IVF D51/2NS with KCl 20mEQ at 80 cc/hr IV abx meropenem as per ID, Zyvox stopped today Renally dose all abx and monitor electrolytes and replace as needed will follow up Consultation Date/Type/Reason Admit Date/Time May 14, 2018 at 18:34 Initial Consult Date 05/15/18 Type of Consult NEPHROLOGY Requesting Provider: JOSÉ ANTONIO MIRZA MD Date/Time of Note DATE: 05/19/18 TIME: 11:16 Exam/Review of Systems Exam Vitals Vital Signs Date Temp Pulse Resp B/P (MAP) Pulse Ox O2 O2 Flow FiO2 Time Delivery Rate 05/19/18 99 08:22 05/19/18 98.3 20 109/74 96 07:39 (86) 05/19/18 30 07:35 05/18/18 Mechanical 22:24 Ventilator Intake and Output 05/18/18 05/18/18 05/19/18 1515:00 23:00 07:00 IntakeIntake Total 1190 ml 825 ml 990 ml OutputOutput Total 360 ml 745 ml 700 ml BalanceBalance 830 ml 80 ml 290 ml Exam Constitutional: alert, oriented Neck: supple, + tracheostomy, site is clear Respiratory: decreasesd BS at bases, no wheezing, no crackles Cardiovascular: regular rate and rhythm, other (Tachycardic) Gastrointestinal: soft, non-tender, other (G-tube) Genitourinary - Male: other (Suprapubic catheter) Extremities: normal pulses, other (Contracted) Neurological: other (Paraplegia) Skin: other (Multiple wounds) Results Result Diagram: 05/18/18 0440 05/19/18 0601 Results 24hrs Laboratory Tests Test 05/19/18 06:01 Sodium Level 144 Potassium Level 4.2 Chloride Level 114 H Carbon Dioxide Level 21 Anion Gap 9 Blood Urea Nitrogen 59 H Creatinine 1.67 H Est Glomerular Filtrat Rate mL/min 46 L Glucose Level 108 Calcium Level 7.8 L Total Bilirubin 0.1 L Direct Bilirubin 0.00 Indirect Bilirubin 0.1 Aspartate Amino Transf (AST/SGOT) 15 Alanine Aminotransferase (ALT/SGPT) 11 L Alkaline Phosphatase 90 Total Protein 6.5 Albumin 2.7 L Globulin 3.80 H Albumin/Globulin Ratio 0.71 Medications Medication Current Medications IV Flush (NS 3 ml) 3 ml PER PROTOCOL IV ; Start 05/14/18 at 18:30 Lorazepam (Ativan) 0.5 mg Q6H PRN IV .ANXIETY Last administered on 05/19/18 01 :56; Admin Dose 0.5 MG; Start 05/14/18 at 18:30 Ondansetron HCl (Zofran Inj) 4 mg Q6H PRN IV NAUSEA/VOMITING; Start 05/14/18 at 18:30 Acetaminophen/ Hydrocodone Bitart ([place] (5/325)) 1 tab Q6H PRN PO .PAIN 4-6; Start 05/14/18 at 18:30 Acetaminophen/ Hydrocodone Bitart ([place] (5/325)) 2 tab Q6H PRN PO .PAIN 7-10 Last administered on 05/18/18at 23:39; Admin Dose 2 TAB; Start 05/14/18 at 18:30 Hydromorphone HCl (Dilaudid) 0.5 mg Q4H PRN IV .PAIN 7-10 Last administered on 05/19/18 10:09; Admin Dose 0.5 MG; Start 05/14/18 at 18:30 Docusate Sodium (Colace) 100 mg Q12H PRN PO .CONSTIPATION; Start 05/14/18 at 18:30 Magnesium Hydroxide (Milk Of Mag) 30 ml DAILY PRN PO .CONSTIPATION; Start 05/14/18 at 18:30 Famotidine (Pepcid) 20 mg DAILY PO Last administered on 05/19/18 10:05; Admin Dose 20 MG; Start 05/14/18 at 21:00 Enoxaparin Sodium (Lovenox) 30 mg DAILY SC Last administered on 05/19/18 10: 28; Admin Dose 30 MG; Start 05/15/18 at 09:00 Miscellaneous Information (Pending Santyl Order For Wound Care) This patient noriega... PRN PRN XX WOUND CARE; Start 05/14/18 at 23:00 Acetaminophen (Tylenol Liquid) 650 mg Q6 PRN PO MILD PAIN(1-3)OR ELEVATED TEMP Last administered on 05/16/18 21:13; Admin Dose 650 MG; Start 05/15/18 at 07:00 Albuterol (Ventolin Hfa) 4 puff Q6H RESP THERAPY INH Last administered on 05/18/18 19:26; Admin Dose 4 PUFF; Start 05/15/18 at 14:00 Ipratropium [place] (Atrovent Hfa) 4 puff Q6H RESP THERAPY INH Last administered on 05/18/18 19:26; Admin Dose 4 PUFF; Start 05/15/18 at 14:00 Collagenase (Santyl) 1 applic DAILY TOP Last administered on 05/18/18 10:33; Admin Dose 1 APPLIC; Start 05/15/18 at 13:00 Meropenem/Sodium Chloride 50 ml @ 100 mls/hr Q12 IVPB Last administered on 05/19/18 11:02; Admin Dose 100 MLS/HR; Start 05/15/18 at 16:00 Linezolid 300 ml @ 300 mls/hr Q12 IVPB Last administered on 05/19/18 10:08; Admin Dose 300 MLS/HR; Start 05/15/18 at 15:00 Multivit/Ca Carb/ B Cmplx/FA/Prenat ([place]) 1 tab DAILY GTB Last administered on 05/19/18 10:05; Admin Dose 1 TAB; Start 05/16/18 at 09:00 Zinc Sulfate (Zinc Sulfate) 220 mg DAILY GTB Last administered on 05/19/18 10:06; Admin Dose 220 MG; Start 05/16/18 at 09:00 Ascorbic Acid (Vitamin C) 250 mg DAILY GTB Last administered on 05/18/18 10:34; Admin Dose 250 MG; Start 05/16/18 at 09:00 Chlorhexidine Gluconate (Peridex) 15 ml Q12 MM Last administered on 05/18/18 20:48; Admin Dose 15 ML; Start 05/15/18 at 16:30 Levetiracetam (Keppra Liquid) 500 mg Q12 GTB Last administered on 05/19/18at 10:07; Admin Dose 500 MG; Start 05/15/18 at 16:30 Quetiapine Fumarate (Seroquel) 50 mg BID GTB Last administered on 05/19/18at 10:06; Admin Dose 50 MG; Start 05/15/18 at 21:00 IV Flush (NS 10 ml) 10 ml PRN PRN IV IV PROTOCOL; Start 05/15/18 at 18:30 Docusate Sodium (Colace Liquid Cup) 100 mg BID GTB Last administered on 05/18/18at 20:48; Admin Dose 100 MG; Start 05/15/18 at 21:00 Potassium Chloride/Dextrose/ Sod Cl 1,000 ml @ 80 mls/hr [id number] IV Last administered on 05/19/18at 01:59; Admin Dose 80 MLS/HR; Start 05/17/18 at 19:30 TIARA CISNEROS MD May 19, 2018 11:16
--- NOTE | 2018-05-19 11:34 | PN ---
DATE: 05/19/2018 SUBJECTIVE: The patient is on the medical floor now. He is breathing comfortably with ventilator rocha pport through tracheostomy. He is awake and responsive. He has not had any fever spikes this mornin g. PHYSICAL EXAMINATION: VITAL SIGNS: Temperature is 98.3, blood pressure is 109/74, pulse rate is 100, respirations 20, puls e oximetry 96% saturation. NECK: Tracheal secretions are clear. No bleeding or purulence seen. HEART: Regular rhythm. CHEST: Breath sounds are diminished in the lower lung tierney, otherwise clear. ABDOMEN: Soft, no distention. Tolerating tube feedings. No vomiting reported. Bowel sounds are pr esent. EXTREMITIES: Show no edema. He is paraplegic. LABORATORY DATA: Chemistry panel shows sodium 144, potassium 4.2, BUN 59, creatinine 1.67. Both BUN and creatinine are progressively improving. Glucose is 108. No CBC results are available. IMPRESSION: 1. Sepsis. 2. Healthcare-acquired pneumonia. 3. Chronic ventilator dependent respiratory failure. 4. Acute on chronic renal failure. 5. History of nephrolithiasis. 6. History of neurogenic bladder. 7. 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 8. History of bipolar disorder with psychosis. 9. Status post tracheostomy. 10. Status post gastrostomy. 11. Status post suprapubic cystostomy. RECOMMENDATIONS: 1. Continue long-term ventilator support. 2. Continue antibiotics as prescribed by the infectious disease production consultant. 3. Continue bronchodilator inhalation therapy to clear the secretions and maintain pulmonary hygiene . 4. Continue G-tube feedings. 5. Continue deep vein thrombosis prophylaxis. 6. Continue gastrointestinal prophylaxis. Dictated By: HUMBERTO PEREZ MD SR/NTS Conf#: [id number] DID#: [id number] CC: JOSÉ ANTONIO MIRZA MD;*EndCC*
[2018-05-19] MEDS: COLLAGENASE 5 GM (UD JAR) TOP SCH (14:00)
[2018-05-19] MEDS ORDERED: ALBUTEROL HFA 8 GM INHALER INH SCH (14:00)
[2018-05-19] MEDS: ASCORBIC ACID 250 MG TAB GTB SCH (14:00)
[2018-05-19] MEDS: BALSAM PERU/CASTOR OIL 60 GM TUBE TOP SCH (20:29)
[2018-05-19] MEDS: HYDROCODONE/APAP (5/325) TAB PO PRN (20:29)
[2018-05-20] VITALS (22 sets, daily range): BP systolic 119–151; BP diastolic 88–104; PULSE 102–114; RESP 19–30
[2018-05-20] MEDS: LORAZEPAM 2 MG INJ IV PRN ×2 (01:41→22:26)
[2018-05-20] MEDS: HYDROmorphONE 0.5 MG/0.5 ML SYG IV PRN ×6 (01:41→22:26)
[2018-05-20] MEDS: ALBUTEROL HFA 8 GM INHALER INH SCH ×4 (01:50→19:29)
[2018-05-20] MEDS: IPRATROPIUM (HFA) 12.9 GM INHALER INH SCH ×4 (01:50→19:29)
--- NOTE | 2018-05-20 02:56 | PN ---
DATE: 05/19/2018 SUBJECTIVE: Follow up on acute on chronic kidney disease, chronic respiratory failure, C-spine quadr iplegia, history of anoxic encephalopathy. The patient is breathing comfortably on vent. Remains aw sarthak and alert. Denies any chest pain. No reported abdominal pain. No reported wheezing. No report ed bleeding from any site. Suprapubic catheter is draining clear urine. The patient did not have an y fever or chills. OBJECTIVE: GENERAL: The patient is awake and alert. VITAL SIGNS: Temperature 98.6, pulse 112, respiration 19, blood pressure 120/80, O2 saturation 100% on vent at FIO2 of 30%. HEENT: Atraumatic, normocephalic. Nose and ears are normal. Oropharynx is grossly negative. NECK: Tracheostomy in place. Mild secretion. No mass. CHEST: Diminished air entry at bases. No use of accessory muscles. CARDIOVASCULAR: Regular rate and rhythm. S1, S2 normal. No murmur. ABDOMEN: Soft, nontender. G-tube in place. GENITOURINARY: Suprapubic catheter in place, draining clear urine. NEUROLOGIC: The patient is awake, alert, follows simple commands, has dense quadriplegia. The patie nt still has some movement in the upper extremities. The patient has generalized muscle atrophy. LABORATORY DATA: Recent labs, WBC 5.6, hemoglobin 10.4, platelet 155. Chemistry done this morning, sodium 144, potassium 4.2, BUN 56 down from 71, creatinine 1.6 down from 1.8, calcium 7.8, AST 15, AL T 11, alkaline phosphatase 90. IMPRESSION AND PLAN: 1. Acute on chronic kidney disease, improving creatinine, approaching baseline. Continue gentle hyd ration. 2. Bipolar disorder. Continue Seroquel. 3. Seizure disorder. Continue Keppra. 4. Complicated urinary tract infection. Continue meropenem. 5. C-spine cardioplegia. No active issue. 6. History of nephrectomy. 7. History of seizure disorder, stable with current dose of Keppra. Dictated By: JOSÉ ANTONIO HOROWITZ/QUE Conf#: [id number] DID#: [id number]
[2018-05-20] MEDS: BALSAM PERU/CASTOR OIL 60 GM TUBE TOP SCH ×2 (08:35→20:56)
[2018-05-20] MEDS: ZINC SULFATE 220 MG CAP GTB SCH (08:36)
[2018-05-20] MEDS: MULTIVIT/CA CARB/B CMPLX/FA TAB GTB SCH (08:36)
[2018-05-20] MEDS: LEVETIRACETAM (100 MG/ML) 5ML CUP GTB SCH ×2 (08:36→20:54)
[2018-05-20] MEDS: ASCORBIC ACID 250 MG TAB GTB SCH (08:36)
[2018-05-20] MEDS: CHLORHEXIDINE GLUCONATE 15 ML UD CUP MM SCH ×2 (08:36→20:54)
[2018-05-20] MEDS: FAMOTIDINE 20 MG TAB PO SCH (08:36)
[2018-05-20] MEDS: COLLAGENASE 5 GM (UD JAR) TOP SCH (08:36)
[2018-05-20] MEDS: QUETIAPINE 25 MG TAB GTB SCH ×2 (08:36→20:55)
[2018-05-20] MEDS: DOCUSATE SODIUM 10 MG/ML (10ML CUP) GTB SCH ×2 (08:37→20:54)
[2018-05-20] MEDS: ENOXAPARIN 30 MG/0.3 ML SYG SC SCH (08:42)
[2018-05-20] MEDS: MEROPENEM 500MG/50 ML (PMX) 50 ML IVPB SCH ×2 (08:45→20:56)
[2018-05-20] MEDS: D5W-0.45 NACL + KCL 20 MEQ 1,000 ML IV SCH (09:59)
--- NOTE | 2018-05-20 11:07 | PN ---
DATE: 05/20/2018 SUBJECTIVE: The patient is awake and responsive. He is breathing comfortably with ventilator suppor t through tracheostomy without showing any signs of respiratory distress. PHYSICAL EXAMINATION: VITAL SIGNS: Show temperature 98, blood pressure 124/90, pulse rate 111, respirations 21, pulse oxim etry 100% saturation. He is on 30% oxygen. NECK: Tracheal secretions are clear. No bleeding seen. No purulent secretions present. HEART: Regular rhythm. Sinus tachycardia. CHEST: Breath sounds are heard bilaterally, diminished in both the lower lung tierney with the lung b ases with a few intermittent rales and rhonchi. Breath sounds seem to be clear. ABDOMEN: Soft, no distention seen. No localized tenderness. Tolerating G-tube feedings. Bowel gianni nds are present. EXTREMITIES: Show no edema. He is paraplegic. LABORATORY DATA: No lab results are available today. IMPRESSION: 1. Sepsis. 2. Healthcare-acquired pneumonia. 3. Chronic ventilator dependent respiratory failure. 4. Acute on chronic renal failure. 5. History of nephrolithiasis. 6. History of neurogenic bladder. 7. 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 8. History of bipolar disorder with psychosis. 9. Status post tracheostomy. 10. Status post gastrostomy. 11. Status post suprapubic cystostomy. RECOMMENDATIONS: 1. Continue long-term ventilator support. 2. Continue antibiotics per infectious disease program consultant. 3. Continue bronchodilator inhalation therapy to clear the secretions and improve bronchial hygiene. 4. Continue G-tube feedings. 5. Continue deep vein thrombosis prophylaxis. 6. Continue gastrointestinal prophylaxis. Dictated By: HUMBERTO PEREZ MD SR/NTS Conf#: [id number] DID#: [id number] CC: JOSÉ ANTONIO MIRZA MD;*EndCC*
--- NOTE | 2018-05-20 14:17 | CONS ---
Assessment/Plan Assessment/Plan Assessment/Plan (Daily) 1. Acute on chronic renal failure 2. Hypernatremia 3. UTI 4. history of paraplegia secondary to cervical spine injury, ventilator dependent respiratory failure with striking ostomy, dysphagia with G-tube, neurogenic bladder with suprapubic catheter, right nephrectomy, left renal renal nephrolithiasis with history of lithotripsy and stent placement and urethral stent removal, history of bipolar disorder Plan: BUN/Cr improved to 59/1.67, K normal, HCo3 21, na 144, Continue IVF D51/2NS with KCl 20mEQ - decrease rate to 50 cc/hr IV abx meropenem as per ID, Renally dose all abx and monitor electrlytes and replace as needed will follow up Consultation Date/Type/Reason Admit Date/Time May 14, 2018 at 18:34 Initial Consult Date 05/15/18 Type of Consult NEPHROLOGY Requesting Provider: JOSÉ ANTONIO MIRZA MD Date/Time of Note DATE: 05/20/18 TIME: 14:17 Exam/Review of Systems Exam Vitals Vital Signs Date Temp Pulse Resp B/P (MAP) Pulse Ox O2 O2 Flow FiO2 Time Delivery Rate 05/20/18 111 12:13 05/20/18 98.3 20 127/89 97 11:26 (102) 05/20/18 30 09:40 05/20/18 Mechanical 04:00 Ventilator Intake and Output 05/19/18 05/19/18 05/20/18 1515:00 23:00 07:00 IntakeIntake Total 50 ml 1563 ml OutputOutput Total 1650 ml 1800 ml BalanceBalance -1600 ml -237 ml Exam Constitutional: alert, oriented Neck: supple, + tracheostomy, site is clear Respiratory: decreasesd BS at bases, no wheezing, no crackles Cardiovascular: regular rate and rhythm, other (Tachycardic) Gastrointestinal: soft, non-tender, other (G-tube) Genitourinary - Male: other (Suprapubic catheter) Extremities: normal pulses, other (Contracted) Neurological: other (Paraplegia) Skin: other (Multiple wounds) Results Result Diagram: 05/18/18 0440 05/19/18 0601 Medications Medication Current Medications IV Flush (NS 3 ml) 3 ml PER PROTOCOL IV ; Start 05/14/18 at 18:30 Lorazepam (Ativan) 0.5 mg Q6H PRN IV .ANXIETY Last administered on 05/20/18 01:41; Admin Dose 0.5 MG; Start 05/14/18 at 18:30 Ondansetron HCl (Zofran Inj) 4 mg Q6H PRN IV NAUSEA/VOMITING; Start 05/14/18 at 18:30 Acetaminophen/ Hydrocodone Bitart ([place] (5/325)) 1 tab Q6H PRN PO .PAIN 4-6; Start 05/14/18 at 18:30 Acetaminophen/ Hydrocodone Bitart ([place] (5/325)) 2 tab Q6H PRN PO .PAIN 7-10 Last administered on 05/19/18 20:29; Admin Dose 2 TAB; Start 05/14/18 at 18:30 Hydromorphone HCl (Dilaudid) 0.5 mg Q4H PRN IV .PAIN 7-10 Last administered on 05/20/18 09:59; Admin Dose 0.5 MG; Start 05/14/18 at 18:30 Docusate Sodium (Colace) 100 mg Q12H PRN PO .CONSTIPATION; Start 05/14/18 at 18:30 Magnesium Hydroxide (Milk Of Mag) 30 ml DAILY PRN PO .CONSTIPATION; Start 05/14/18 at 18:30 Famotidine (Pepcid) 20 mg DAILY PO Last administered on 05/20/18 08:36; Admin Dose 20 MG; Start 05/14/18 at 21:00 Enoxaparin Sodium (Lovenox) 30 mg DAILY SC Last administered on 05/20/18 08:42; Admin Dose 30 MG; Start 05/15/18 at 09:00 Miscellaneous Information (Pending Santyl Order For Wound Care) This patient noriega... PRN PRN XX WOUND CARE; Start 05/14/18 at 23:00 Acetaminophen (Tylenol Liquid) 650 mg Q6 PRN PO MILD PAIN(1-3)OR ELEVATED TEMP Last administered on 05/16/18 21:13; Admin Dose 650 MG; Start 05/15/18 at 07:00 Albuterol (Ventolin Hfa) 4 puff Q6H RESP THERAPY INH Last administered on 05/20/18 07:42; Admin Dose 4 PUFF; Start 05/15/18 at 14:00 Ipratropium [place] (Atrovent Hfa) 4 puff Q6H RESP THERAPY INH Last administe red on 05/20/18 07:43; Admin Dose 4 PUFF; Start 05/15/18 at 14:00 Collagenase (Santyl) 1 applic DAILY TOP Last administered on 05/20/18 08:36; Admin Dose 1 APPLIC; Start 05/15/18 at 13:00 Meropenem/Sodium Chloride 50 ml @ 100 mls/hr Q12 IVPB Last administered on 05/20/18 08:45; Admin Dose 100 MLS/HR; Start 05/15/18 at 16:00 Multivit/Ca Carb/ B Cmplx/FA/Prenat ([place]) 1 tab DAILY GTB Last a dministered on 05/20/18 08:36; Admin Dose 1 TAB; Start 05/16/18 at 09:00 Zinc Sulfate (Zinc Sulfate) 220 mg DAILY GTB Last administered on 05/20/18 08:36; Admin Dose 220 MG; Start 05/16/18 at 09:00 Ascorbic Acid (Vitamin C) 250 mg DAILY GTB Last administered on 05/20/18 08:36; Admin Dose 250 MG; Start 05/16/18 at 09:00 Chlorhexidine Gluconate (Peridex) 15 ml Q12 MM Last administered on 05/20/18 08:36; Admin Dose 15 ML; Start 05/15/18 at 16:30 Levetiracetam (Keppra Liquid) 500 mg Q12 GTB Last administered on 05/20/18 08:36; Admin Dose 500 MG; Start 05/15/18 at 16:30 Quetiapine Fumarate (Seroquel) 50 mg BID GTB Last administered on 05/20/18 08:36; Admin Dose 50 MG; Start 05/15/18 at 21:00 IV Flush (NS 10 ml) 10 ml PRN PRN IV IV PROTOCOL; Start 05/15/18 at 18:30 Docusate Sodium (Colace Liquid Cup) 100 mg BID GTB Last administered on 05/20/18 08:37; Admin Dose 100 MG; Start 05/15/18 at 21:00 Potassium Chloride/Dextrose/ Sod Cl 1,000 ml @ 80 mls/hr [id number] IV Last administered on 05/20/18at 09:59; Admin Dose 80 MLS/HR; Start 05/17/18 at 19:30 TIARA CISNEROS MD May 20, 2018 14:17
--- NOTE | 2018-05-20 14:52 | CONS ---
Assessment/Plan Assessment/Plan Hospital Course (Demo Recall) ID PROGRESS NOTE CURRENT ABX: DAY #6 => Merrem s/p Zyvox 24H INTERVAL SUMMARY * C-spine quadriplegia, history of anoxic encephalopathy. Awake, alert, VSS, NAD, no fevers, WBC normalized * Indwelling: Trach, PEG, PICC line, suprapubic catheter DIAGNOSTIC IMAGING * Chest x-ray this morning revealed decreased right basilar infiltrates and residual disease was overall improved I aeration MICRO/OTHER * : Urine culture grew Proteus mirabilis * Sputum culture growing GNR x2 * RESPIRATORY CULTURE Final Organism 1 PROVIDENCIA STUARTII QUANTITY SCANT GROWTH Organism 2 PSEUDOMONAS AERUGINOSA QUANTITY SCANT GROWTH * Blood culture grew COAGULASE NEGATIVE STAPH 1 out of 2 sets PHYSICAL EXAMINATION: GENERAL: VSS, NAD HEENT: AT, NC, anicteric, NECK: Supple, TRACH in place CHEST: Equal chest rise bilaterally, without dyspnea on observation HEART: Pulse RRR ABDOMEN: Soft / NT : SUPRAPUBIC CATHETER EXTREMITIES: Warm, dry - Extremities wasted without cyanosis SKIN: No rash, no diaphoresis ID ASSESSMENT 42 yo M admit with: 1. s/p Severe sepsis with shock and bacteremia= contaminant => resolving 2. Healthcare associated pneumonia 3. Urinary tract infection= COMPLICATED UTI W/ SEPSIS AND SUPRAPUBIC CATHETER 4. Chronic respiratory failure and dysphagia 5. Acute on chronic kidney disease 6. Neurogenic bladder status post suprapubic catheter placement 7. Incomplete quadriplegia 8. History of nephrectomy 9. History of scabies 10. Multiple chronic wounds 11. Anemia (-)MRSA Nares ABX ALLERGIES: TETRACYCLINEs INVASIVES: PIV CURRENT ABX: DAY # 6 => Merrem s/p Zyvox ID RECOMMENDATIONS/PLAN: 1. Continue Merrem ~7-10 days due to presence of suprapubic catheter = COMPLICATED UTI . Consultation Date/Type/Reason Admit Date/Time May 14, 2018 at 18:34 Initial Consult Date 05/15/18 Requesting Provider: JOSÉ ANTONIO MIRZA MD Date/Time of Note DATE: 05/20/18 TIME: 14:50 Exam/Review of Systems Exam Vitals Vital Signs Date Temp Pulse Resp B/P (MAP) Pulse Ox O2 O2 Flow FiO2 Time Delivery Rate 05/20/18 111 12:13 05/20/18 98.3 20 127/89 97 11:26 (102) 05/20/18 30 09:40 05/20/18 Mechanical 04:00 Ventilator Intake and Output 05/19/18 05/19/18 05/20/18 1414:59 22:59 06:59 IntakeIntake Total 50 ml 1563 ml OutputOutput Total 1650 ml 1800 ml BalanceBalance -1600 ml -237 ml Results Result Diagram: 05/18/18 0440 05/19/18 0601 Medications Medication Current Medications IV Flush (NS 3 ml) 3 ml PER PROTOCOL IV ; Start 05/14/18 at 18:30 Lorazepam (Ativan) 0.5 mg Q6H PRN IV .ANXIETY Last administered on 05/20/18at 01:41; Admin Dose 0.5 MG; Start 05/14/18 at 18:30 Ondansetron HCl (Zofran Inj) 4 mg Q6H PRN IV NAUSEA/VOMITING; Start 05/14/18 at 18:30 Acetaminophen/ Hydrocodone Bitart ([place] (5/325)) 1 tab Q6H PRN PO .PAIN 4-6; Start 05/14/18 at 18:30 Acetaminophen/ Hydrocodone Bitart ([place] (5/325)) 2 tab Q6H PRN PO .PAIN 7-10 Last administered on 05/19/18at 20:29; Admin Dose 2 TAB; Start 05/14/18 at 18:30 Hydromorphone HCl (Dilaudid) 0.5 mg Q4H PRN IV .PAIN 7-10 Last administered on 05/20/18at 14:23; Admin Dose 0.5 MG; Start 05/14/18 at 18:30 Docusate Sodium (Colace) 100 mg Q12H PRN PO .CONSTIPATION; Start 05/14/18 at 18:30 Magnesium Hydroxide (Milk Of Mag) 30 ml DAILY PRN PO .CONSTIPATION; Start 05/14/18 at 18:30 Famotidine (Pepcid) 20 mg DAILY PO Last administered on 05/20/18at 08:36; Admin Dose 20 MG; Start 05/14/18 at 21:00 Enoxaparin Sodium (Lovenox) 30 mg DAILY SC Last administered on 05/20/18at 08:42; Admin Dose 30 MG; Start 05/15/18 at 09:00 Miscellaneous Information (Pending Santyl Order For Wound Care) This patient noriega... PRN PRN XX WOUND CARE; Start 05/14/18 at 23:00 Acetaminophen (Tylenol Liquid) 650 mg Q6 PRN PO MILD PAIN(1-3)OR ELEVATED TEMP Last administered on 05/16/18 21:13; Admin Dose 650 MG; Start 05/15/18 at 07:00 Albuterol (Ventolin Hfa) 4 puff Q6H RESP THERAPY INH Last administered on 05/20/18 07:42; Admin Dose 4 PUFF; Start 05/15/18 at 14:00 Ipratropium [place] (Atrovent Hfa) 4 puff Q6H RESP THERAPY INH Last admin istered on 05/20/18 07:43; Admin Dose 4 PUFF; Start 05/15/18 at 14:00 Collagenase (Santyl) 1 applic DAILY TOP Last administered on 05/20/18 08:36; Admin Dose 1 APPLIC; Start 05/15/18 at 13:00 Meropenem/Sodium Chloride 50 ml @ 100 mls/hr Q12 IVPB Last administered on 05/20/18 08:45; Admin Dose 100 MLS/HR; Start 05/15/18 at 16:00 Multivit/Ca Carb/ B Cmplx/FA/Prenat ([place]) 1 tab DAILY GTB Last administered on 05/20/18 08:36; Admin Dose 1 TAB; Start 05/16/18 at 09:00 Zinc Sulfate (Zinc Sulfate) 220 mg DAILY GTB Last administered on 05/20/18 08:36; Admin Dose 220 MG; Start 05/16/18 at 09:00 Ascorbic Acid (Vitamin C) 250 mg DAILY GTB Last administered on 05/20/18 08:36; Admin Dose 250 MG; Start 05/16/18 at 09:00 Chlorhexidine Gluconate (Peridex) 15 ml Q12 MM Last administered on 05/20/18 08:36; Admin Dose 15 ML; Start 05/15/18 at 16:30 Levetiracetam (Keppra Liquid) 500 mg Q12 GTB Last administered on 05/20/18 08:36; Admin Dose 500 MG; Start 05/15/18 at 16:30 Quetiapine Fumarate (Seroquel) 50 mg BID GTB Last administered on 05/20/18at 08:36; Admin Dose 50 MG; Start 05/15/18 at 21:00 IV Flush (NS 10 ml) 10 ml PRN PRN IV IV PROTOCOL; Start 05/15/18 at 18:30 Docusate Sodium (Colace Liquid Cup) 100 mg BID GTB Last administered on 05/20/18at 08:37; Admin Dose 100 MG; Start 05/15/18 at 21:00 Potassium Chloride/Dextrose/ Sod Cl 1,000 ml @ 80 mls/hr [id number] IV Last administered on 05/20/18at 09:59; Admin Dose 80 MLS/HR; Start 05/17/18 at 19:30 KELSI CERDA SERVICE DESK DIRECTOR May 20, 2018 14:52
[2018-05-20] MEDS: HYDROCODONE/APAP (5/325) TAB PO PRN (20:55)
[2018-05-21] VITALS (23 sets, daily range): BP systolic 126–160; BP diastolic 78–98; PULSE 103–118; RESP 20–34
[2018-05-21] MEDS: D5W-0.45 NACL + KCL 20 MEQ 1,000 ML IV SCH (01:18)
[2018-05-21] MEDS: ALBUTEROL HFA 8 GM INHALER INH SCH ×4 (01:39→19:44)
[2018-05-21] MEDS: IPRATROPIUM (HFA) 12.9 GM INHALER INH SCH ×4 (01:39→19:44)
[2018-05-21] MEDS: HYDROmorphONE 0.5 MG/0.5 ML SYG IV PRN ×6 (02:22→21:57)
[2018-05-21] MEDS: BALSAM PERU/CASTOR OIL 60 GM TUBE TOP SCH ×2 (09:00→21:16)
--- NOTE | 2018-05-21 09:15 | PN ---
DATE: 05/21/2018 GENERAL: The patient is awake, responsive. He is breathing comfortably with the long-term ventilato r support through the . His secretions are minimum to moderate. No bleeding or purulent secret ions seen. PHYSICAL EXAMINATION: VITAL SIGNS: This morning shows temperature 98, blood pressure 127/95, pulse rate 118, respirations 20, pulse oximetry 96% saturation. HEENT: Tracheal secretions are clear. HEART: Regular rhythm with sinus tachycardia. CHEST: Breath sounds are heard bilaterally, diminished in the lower lung tierney with a few occasiona l rales and rhonchi, mostly clear. ABDOMEN: Soft. No distention seen, tolerating G-tube feedings. Bowel sounds are normally present. EXTREMITIES: Show no edema. LABORATORY EXTREMITIES: Today's lab tests show sodium 147, potassium 5, bicarbonate of 20, BUN decre ased to 49, creatinine also decreased 1.41. Renal status progressively improving. Magnesium 2.1. H is albumin is 3. It is low but better than before. The CBC shows a WBC 3900, hemoglobin 7.3, hematocrit 25.1, platelets within normal limits. IMPRESSION: 1. Sepsis. 2. Healthcare-acquired pneumonia. 3. Chronic ventilator dependent respiratory failure. 4. Acute on chronic renal failure, improving. 5. History of nephrolithiasis. 6. History of neurogenic bladder. 7. History of paraplegia secondary to spinal cord injury. 8. History of bipolar disorder, psychosis. 9. Status post tracheostomy. 10. Status post gastrostomy. 11. Status post suprapubic cystostomy. RECOMMENDATIONS: 1. Continue long-term ventilator support. 2. Continue antibiotics per infectious disease instructional systems design consultant. 3. Continue bronchodilator inhalation therapy to clear the secretions and improve bronchial hygiene. 4. Continue G-tube feedings. 5. Continue deep vein thrombosis prophylaxis. 6. Continue gastrointestinal prophylaxis. Dictated By: HUMBERTO PEREZ MD SR/NTS Conf#: [id number] DID#: [id number] CC: JOSÉ ANTONIO MIRZA MD;*EndCC*
[2018-05-21] MEDS: LEVETIRACETAM (100 MG/ML) 5ML CUP GTB SCH ×2 (09:59→21:06)
[2018-05-21] MEDS: ASCORBIC ACID 250 MG TAB GTB SCH (09:59)
[2018-05-21] MEDS: MULTIVIT/CA CARB/B CMPLX/FA TAB GTB SCH (09:59)
[2018-05-21] MEDS: DOCUSATE SODIUM 10 MG/ML (10ML CUP) GTB SCH ×2 (09:59→21:05)
[2018-05-21] MEDS: COLLAGENASE 5 GM (UD JAR) TOP SCH (09:59)
[2018-05-21] MEDS: QUETIAPINE 25 MG TAB GTB SCH ×2 (09:59→21:06)
[2018-05-21] MEDS: ZINC SULFATE 220 MG CAP GTB SCH (09:59)
[2018-05-21] MEDS: CHLORHEXIDINE GLUCONATE 15 ML UD CUP MM SCH ×2 (09:59→21:05)
[2018-05-21] MEDS: FAMOTIDINE 20 MG TAB PO SCH (09:59)
[2018-05-21] MEDS: MEROPENEM 500MG/50 ML (PMX) 50 ML IVPB SCH ×2 (10:57→21:14)
[2018-05-21] MEDS: ENOXAPARIN 30 MG/0.3 ML SYG SC SCH (11:02)
[2018-05-21] MEDS: HYDROCODONE/APAP (5/325) TAB PO PRN ×3 (12:44→21:05)
--- NOTE | 2018-05-21 14:46 | CONS ---
Assessment/Plan Assessment/Plan Hospital Course (Demo Recall) No acute events per report patient is lying comfortably in bed no fevers overnight. He remains on meropenem WBC today 3.9 platelets 160 neutrophils 76.6 BUN 49 creatinine 1.41 Microbiology: Urine culture grew Proteus mirabilis, sputum culture growing further dentia, blood culture grew staph sp. 1 out of 2 sets Indwelling: Trach, PEG, PICC line, suprapubic catheter Allergies: Tetracycline Antimicrobials: Meropenem Physical examination: Chronically ill-appearing middle-aged man who is in no distress. Head atraumatic normocephalic neck is supple chest rise symmetrical breath sounds diminished bases. Heart: S1-S2. Abdomen soft bowel sounds present. Extremities wasted without cyanosis Assessment: 1. S/p severe sepsis with shock 2. Bacteremia, cw contaminant 2. Healthcare associated pneumonia 3. Urinary tract infection 4. Chronic respiratory failure and dysphagia 5. Acute on chronic kidney disease 6. Neurogenic bladder status post suprapubic catheter placement 7. Incomplete quadriplegia 8. History of nephrectomy 9. History of scabies 10. Multiple chronic wounds Plan: Remains stable, continue present care, follow chest x-ray and pulmonary recommendations Consultation Date/Type/Reason Admit Date/Time May 14, 2018 at 18:34 Initial Consult Date 05/15/18 Type of Consult id Requesting Provider: JOSÉ ANTONIO MIRZA MD Date/Time of Note DATE: 05/21/18 TIME: 14:45 Exam/Review of Systems Exam Vitals Vital Signs Date Temp Pulse Resp B/P (MAP) Pulse Ox O2 O2 Flow FiO2 Time Delivery Rate 05/21/18 116 12:55 05/21/18 98.0 20 160/98 97 12:00 (118) 05/21/18 30 11:30 05/21/18 Mechanical 04:00 Ventilator Intake and Output 05/20/18 05/20/18 05/21/18 1515:00 23:00 07:00 IntakeIntake Total 1550 ml 1090 ml OutputOutput Total 1850 ml 1600 ml BalanceBalance -300 ml -510 ml Results Result Diagram: 05/21/18 0616 05/21/18 0616 Results 24hrs Laboratory Tests Test 05/21/18 06:16 White Blood Count 3.9 #L Red Blood Count 2.61 L Hemoglobin 7.3 L Hematocrit 25.1 L Mean Corpuscular Volume 96.2 Mean Corpuscular Hemoglobin 28.0 L Mean Corpuscular Hemoglobin Concent 29.1 L Red Cell Distribution Width 15.7 H Platelet Count 160 Mean Platelet Volume 11.5 H Immature Granulocytes % 0.500 H Neutrophils % 76.6 Lymphocytes % 11.1 L Monocytes % 6.7 Eosinophils % 4.6 Basophils % 0.5 Nucleated Red Blood Cells % 0.0 Immature Granulocytes # 0.020 Neutrophils # 3.0 Lymphocytes # 0.4 L Monocytes # 0.3 Eosinophils # 0.2 Basophils # 0.0 Nucleated Red Blood Cells # 0.0 Prothrombin Time 13.6 Prothrombin Time Ratio 1.1 INR International Normalized Ratio 1.03 Activated Partial Thromboplast Time 35.2 H Sodium Level 147 H Potassium Level 5.0 Chloride Level 120 H Carbon Dioxide Level 20 L Anion Gap 7 Blood Urea Nitrogen 49 H Creatinine 1.41 H Est Glomerular Filtrat Rate mL/min 55 L Glucose Level 100 Calcium Level 8.7 Magnesium Level 2.1 Total Bilirubin 0.2 Direct Bilirubin 0.00 Indirect Bilirubin 0.2 Aspartate Amino Transf (AST/SGOT) 21 Alanine Aminotransferase (ALT/SGPT) 11 L Alkaline Phosphatase 106 Total Protein 7.1 Albumin 3.0 L Globulin 4.10 H Albumin/Globulin Ratio 0.73 Medications Medication Current Medications IV Flush (NS 3 ml) 3 ml PER PROTOCOL IV ; Start 05/14/18 at 18:30 Lorazepam (Ativan) 0.5 mg Q6H PRN IV .ANXIETY Last administered on 05/20/18at 22:26; Admin Dose 0.5 MG; Start 05/14/18 at 18:30 Ondansetron HCl (Zofran Inj) 4 mg Q6H PRN IV NAUSEA/VOMITING; Start 05/14/18 at 18:30 Acetaminophen/ Hydrocodone Bitart ([place] (5/325)) 1 tab Q6H PRN PO .PAIN 4-6; Start 05/14/18 at 18:30 Acetaminophen/ Hydrocodone Bitart ([place] (5/325)) 2 tab Q6H PRN PO .PAIN 7-10 Last administered on 05/21/18at 12:45; Admin Dose 2 TAB; Start 05/14/18 at 18:30 Hydromorphone HCl (Dilaudid) 0.5 mg Q4H PRN IV .PAIN 7-10 Last administered on 05/21/18 14:02; Admin Dose 0.5 MG; Start 05/14/18 at 18:30 Docusate Sodium (Colace) 100 mg Q12H PRN PO .CONSTIPATION; Start 05/14/18 at 18:30 Magnesium Hydroxide (Milk Of Mag) 30 ml DAILY PRN PO .CONSTIPATION; Start 05/14/18 at 18:30 Famotidine (Pepcid) 20 mg DAILY PO Last administered on 05/21/18 09:59; Admin Dose 20 MG; Start 05/14/18 at 21:00 Enoxaparin Sodium (Lovenox) 30 mg DAILY SC Last administered on 05/21/18 11:02; Admin Dose 30 MG; Start 05/15/18 at 09:00 Miscellaneous Information (Pending Santyl Order For Wound Care) This patient noriega... PRN PRN XX WOUND CARE; Start 05/14/18 at 23:00 Acetaminophen (Tylenol Liquid) 650 mg Q6 PRN PO MILD PAIN(1-3)OR ELEVATED TEMP Last administered on 05/16/18 21:13; Admin Dose 650 MG; Start 05/15/18 at 07:00 Albuterol (Ventolin Hfa) 4 puff Q6H RESP THERAPY INH Last administered on 05/21/18 08:34; Admin Dose 4 PUFF; Start 05/15/18 at 14:00 Ipratropium [place] (Atrovent Hfa) 4 puff Q6H RESP THERAPY INH Last administered on 05/21/18 08:34; Admin Dose 4 PUFF; Start 05/15/18 at 14:00 Collagenase (Santyl) 1 applic DAILY TOP Last administered on 05/21/18 09:59; Admin Dose 1 APPLIC; Start 05/15/18 at 13:00 Meropenem/Sodium Chloride 50 ml @ 100 mls/hr Q12 IVPB Last administered on 05/21/18 10:57; Admin Dose 100 MLS/HR; Start 05/15/18 at 16:00 Multivit/Ca Carb/ B Cmplx/FA/Prenat ([place]) 1 tab DAILY GTB Last administered on 05/21/18 09:59; Admin Dose 1 TAB; Start 05/16/18 at 09:00 Zinc Sulfate (Zinc Sulfate) 220 mg DAILY GTB Last administered on 05/21/18 09:59; Admin Dose 220 MG; Start 05/16/18 at 09:00 Ascorbic Acid (Vitamin C) 250 mg DAILY GTB Last administered on 05/21/18 09:59; Admin Dose 250 MG; Start 05/16/18 at 09:00 Chlorhexidine Gluconate (Peridex) 15 ml Q12 MM Last administered on 05/21/18 09:59; Admin Dose 15 ML; Start 05/15/18 at 16:30 Levetiracetam (Keppra Liquid) 500 mg Q12 GTB Last administered on 05/21/18 09:59; Admin Dose 500 MG; Start 05/15/18 at 16:30 Quetiapine Fumarate (Seroquel) 50 mg BID GTB Last administered on 05/21/18 09:59; Admin Dose 50 MG; Start 05/15/18 at 21:00 IV Flush (NS 10 ml) 10 ml PRN PRN IV IV PROTOCOL; Start 05/15/18 at 18:30 Docusate Sodium (Colace Liquid Cup) 100 mg BID GTB Last administered on 05/21/18 09:59; Admin Dose 100 MG; Start 05/15/18 at 21:00 Potassium Chloride/Dextrose/ Sod Cl 1,000 ml @ 50 mls/hr Q20H IV Last administered on 05/20/18 09:59; Admin Dose 80 MLS/HR; Start 05/17/18 at 19:30 REGINALDO CHERY NP May 21, 2018 14:46
--- NOTE | 2018-05-21 14:47 | CONS ---
Assessment/Plan Assessment/Plan Assessment/Plan (Daily) 1. Acute on chronic renal failure 2. Hypernatremia 3. UTI 4. history of paraplegia secondary to cervical spine injury, ventilator dependent respiratory failure with striking ostomy, dysphagia with G-tube, neurogenic bladder with suprapubic catheter, right nephrectomy, left renal renal nephrolithiasis with history of lithotripsy and stent placement and urethral stent removal, history of bipolar disorder Plan: BUN/Cr improved to 49/1.41, K 5, HCo3 2o, na 147, change IVF to D5W at 75 cc/hr x 3 liter then stop IV abx meropenem as per ID, Renally dose all abx and monitor electrlytes and replace as needed will follow up Consultation Date/Type/Reason Admit Date/Time May 14, 2018 at 18:34 Initial Consult Date 05/15/18 Type of Consult NEPHROLOGY Requesting Provider: JOSÉ ANTONIO MIRZA MD Date/Time of Note DATE: 05/21/18 TIME: 14:47 Exam/Review of Systems Exam Vitals Vital Signs Date Temp Pulse Resp B/P (MAP) Pulse Ox O2 O2 Flow FiO2 Time Delivery Rate 05/21/18 116 12:55 05/21/18 98.0 20 160/98 97 12:00 (118) 05/21/18 30 11:30 05/21/18 Mechanical 04:00 Ventilator Intake and Output 05/20/18 05/20/18 05/21/18 1515:00 23:00 07:00 IntakeIntake Total 1550 ml 1090 ml OutputOutput Total 1850 ml 1600 ml BalanceBalance -300 ml -510 ml Exam Constitutional: alert, oriented Neck: supple, + tracheostomy, site is clear Respiratory: decreasesd BS at bases, no wheezing, no crackles Cardiovascular: regular rate and rhythm, other (Tachycardic) Gastrointestinal: soft, non-tender, other (G-tube) Genitourinary - Male: other (Suprapubic catheter) Extremities: normal pulses, other (Contracted) Neurological: other (Paraplegia) Skin: other (Multiple wounds) Results Result Diagram: 05/21/18 0616 05/21/18 0616 Results 24hrs Laboratory Tests Test 05/21/18 06:16 White Blood Count 3.9 #L Red Blood Count 2.61 L Hemoglobin 7.3 L Hematocrit 25.1 L Mean Corpuscular Volume 96.2 Mean Corpuscular Hemoglobin 28.0 L Mean Corpuscular Hemoglobin Concent 29.1 L Red Cell Distribution Width 15.7 H Platelet Count 160 Mean Platelet Volume 11.5 H Immature Granulocytes % 0.500 H Neutrophils % 76.6 Lymphocytes % 11.1 L Monocytes % 6.7 Eosinophils % 4.6 Basophils % 0.5 Nucleated Red Blood Cells % 0.0 Immature Granulocytes # 0.020 Neutrophils # 3.0 Lymphocytes # 0.4 L Monocytes # 0.3 Eosinophils # 0.2 Basophils # 0.0 Nucleated Red Blood Cells # 0.0 Prothrombin Time 13.6 Prothrombin Time Ratio 1.1 INR International Normalized Ratio 1.03 Activated Partial Thromboplast Time 35.2 H Sodium Level 147 H Potassium Level 5.0 Chloride Level 120 H Carbon Dioxide Level 20 L Anion Gap 7 Blood Urea Nitrogen 49 H Creatinine 1.41 H Est Glomerular Filtrat Rate mL/min 55 L Glucose Level 100 Calcium Level 8.7 Magnesium Level 2.1 Total Bilirubin 0.2 Direct Bilirubin 0.00 Indirect Bilirubin 0.2 Aspartate Amino Transf (AST/SGOT) 21 Alanine Aminotransferase (ALT/SGPT) 11 L Alkaline Phosphatase 106 Total Protein 7.1 Albumin 3.0 L Globulin 4.10 H Albumin/Globulin Ratio 0.73 Medications Medication Current Medications IV Flush (NS 3 ml) 3 ml PER PROTOCOL IV ; Start 05/14/18 at 18:30 Lorazepam (Ativan) 0.5 mg Q6H PRN IV .ANXIETY Last administered on 05/20/18at 2 2:26; Admin Dose 0.5 MG; Start 05/14/18 at 18:30 Ondansetron HCl (Zofran Inj) 4 mg Q6H PRN IV NAUSEA/VOMITING; Start 05/14/18 at 18:30 Acetaminophen/ Hydrocodone Bitart ([place] (5/325)) 1 tab Q6H PRN PO .PAIN 4-6; Start 05/14/18 at 18:30 Acetaminophen/ Hydrocodone Bitart ([place] (5/325)) 2 tab Q6H PRN PO .PAIN 7-10 Last administered on 05/21/18at 12:45; Admin Dose 2 TAB; Start 05/14/18 at 18:30 Hydromorphone HCl (Dilaudid) 0.5 mg Q4H PRN IV .PAIN 7-10 Last administered on 05/21/18 14:02; Admin Dose 0.5 MG; Start 05/14/18 at 18:30 Docusate Sodium (Colace) 100 mg Q12H PRN PO .CONSTIPATION; Start 05/14/18 at 18:30 Magnesium Hydroxide (Milk Of Mag) 30 ml DAILY PRN PO .CONSTIPATION; Start 05/14/18 at 18:30 Famotidine (Pepcid) 20 mg DAILY PO Last administered on 05/21/18 09:59; Admin Dose 20 MG; Start 05/14/18 at 21:00 Enoxaparin Sodium (Lovenox) 30 mg DAILY SC Last administered on 05/21/18 11 :02; Admin Dose 30 MG; Start 05/15/18 at 09:00 Miscellaneous Information (Pending Santyl Order For Wound Care) This patient noriega... PRN PRN XX WOUND CARE; Start 05/14/18 at 23:00 Acetaminophen (Tylenol Liquid) 650 mg Q6 PRN PO MILD PAIN(1-3)OR ELEVATED TEMP Last administered on 05/16/18 21:13; Admin Dose 650 MG; Start 05/15/18 at 07:00 Albuterol (Ventolin Hfa) 4 puff Q6H RESP THERAPY INH Last administered on 05/21/18 08:34; Admin Dose 4 PUFF; Start 05/15/18 at 14:00 Ipratropium [place] (Atrovent Hfa) 4 puff Q6H RESP THERAPY INH Last administered on 05/21/18 08:34; Admin Dose 4 PUFF; Start 05/15/18 at 14:00 Collagenase (Santyl) 1 applic DAILY TOP Last administered on 05/21/18 09:59; Admin Dose 1 APPLIC; Start 05/15/18 at 13:00 Meropenem/Sodium Chloride 50 ml @ 100 mls/hr Q12 IVPB Last administered on 05/21/18 10:57; Admin Dose 100 MLS/HR; Start 05/15/18 at 16:00 Multivit/Ca Carb/ B Cmplx/FA/Prenat ([place]) 1 tab DAILY GTB Last administered on 05/21/18 09:59; Admin Dose 1 TAB; Start 05/16/18 at 09:00 Zinc Sulfate (Zinc Sulfate) 220 mg DAILY GTB Last administered on 05/21/18 09:59; Admin Dose 220 MG; Start 05/16/18 at 09:00 Ascorbic Acid (Vitamin C) 250 mg DAILY GTB Last administered on 05/21/18 09:59; Admin Dose 250 MG; Start 05/16/18 at 09:00 Chlorhexidine Gluconate (Peridex) 15 ml Q12 MM Last administered on 05/21/18 09:59; Admin Dose 15 ML; Start 05/15/18 at 16:30 Levetiracetam (Keppra Liquid) 500 mg Q12 GTB Last administered on 05/21/18 09:59; Admin Dose 500 MG; Start 05/15/18 at 16:30 Quetiapine Fumarate (Seroquel) 50 mg BID GTB Last administered on 05/21/18 09:59; Admin Dose 50 MG; Start 05/15/18 at 21:00 IV Flush (NS 10 ml) 10 ml PRN PRN IV IV PROTOCOL; Start 05/15/18 at 18:30 Docusate Sodium (Colace Liquid Cup) 100 mg BID GTB Last administered on 05/21/18 09:59; Admin Dose 100 MG; Start 05/15/18 at 21:00 Potassium Chloride/Dextrose/ Sod Cl 1,000 ml @ 50 mls/hr Q20H IV Last administered on 05/20/18 09:59; Admin Dose 80 MLS/HR; Start 05/17/18 at 19:30 TIARA CISNEROS MD May 21, 2018 14:47
--- NOTE | 2018-05-21 14:50 | PN ---
DATE: 05/20/2018 SUBJECTIVE: Follow up on acute on chronic kidney disease, C-spine cardioplegia , bipolar diso rder, dysphagia, complicated UTI and history of nephrectomy. The patient is breathing comfortably on vent. Denies any chest pain or abdominal pain. No reported fever or chills. No reported abdominal distention. Suprapubic catheter is draining clear urine. PHYSICAL EXAMINATION: GENERAL: The patient is awake, alert, breathing comfortably. VITAL SIGNS: Temperature 98, pulse 100, respiration 20, blood pressure 125/90, O2 saturation 96% on FIO2 30%. HEENT: No eye discharge or redness. Conjunctivae are pale. Lids are normal. Oropharynx grossly ne gative. NECK: Tracheostomy seizure. No mass. CHEST: Fairly clear anteriorly. CARDIOVASCULAR: S1, S2 normal. ABDOMEN: Soft, nondistended, nontender. G-tube and suprapubic catheter in place. EXTREMITIES: No edema. The patient is contracted and muscles are atrophic NEUROLOGIC: The patient is awake, alert, follows commands. IMPRESSION: 1. Complicated urinary tract infection. Continue meropenem. 2. Seizure disorder. Continue Keppra. 3. Vent dependent respiratory failure. Continue vent support. 4. Bipolar disorder, stable with current dose of Seroquel. I spoke with Dr. Ames from pulmonary [facility], the patient is stable. Follow up CBC and BMP will be done on 05/21/2018 to evaluate acute ki dney injury. The patient has been seen by Dr. Susan Barker from nephrology standpoint. Dictated By: JOSÉ ANTONIO HOROWITZ/QUE Conf#: [id number] DID#: [id number]
--- NOTE | 2018-05-21 16:41 | PN ---
Date/Time of Note Date/Time of Note DATE: 05/21/18 TIME: 16:37 Assessment/Plan VTE Prophylaxis Risk score (from Ns)>0 risk: 2 SCD applied (from Ns): Yes Pharmacological prophylaxis: LMWH Lines/Catheters IV [facility]atheter Type (from [facility] PICC Line Central line still needed: Yes Urinary Cath still in place: Yes Reason Cath still needed: urinary retention Assessment/Plan Hospital Course Patient is tachycardic, continues on ventilatory support, continues on meropenem. Assessment/Plan - S/p sepsis secondary to pneumonia, continue antibiotics per ID. Dr. Maciel is following in infection disease consultation. - Health care associated pneumonia - Proteus M UTI - Acute on chronic renal failure, continue IV fluids. Continue to monitor BUN and creatinine. Dr. Barker is following patient in nephrology consultation. - Ventilator dependent respiratory failure, continue pulmonary toilet and bronchodilators. Dr Ames is following in pulmonology consultation. - Neurogenic bladder with suprapubic catheter. - Left renal nephrolithiasis, hx of lithotripsy with insertion and subsequent removal of ureteral JJ stent. - Hx of right nephrectomy - Dysphagia with gastrostomy tube. - Multiple decubitus ulcers present on admission. Continue current care per wound consult recommendations, offloading air mattress, optimize nutrition. - Cervical spine injury with paraplegia. - Bipolar disorder with psychosis. Further recommendations based on clinical course. Plan of care discussed with Dr. Barreto. Result Diagram: 05/21/18 0616 05/21/18 0616 Results 24hrs Laboratory Tests Test 05/21/18 06:16 White Blood Count 3.9 #L Red Blood Count 2.61 L Hemoglobin 7.3 L Hematocrit 25.1 L Mean Corpuscular Volume 96.2 Mean Corpuscular Hemoglobin 28.0 L Mean Corpuscular Hemoglobin Concent 29.1 L Red Cell Distribution Width 15.7 H Platelet Count 160 Mean Platelet Volume 11.5 H Immature Granulocytes % 0.500 H Neutrophils % 76.6 Lymphocytes % 11.1 L Monocytes % 6.7 Eosinophils % 4.6 Basophils % 0.5 Nucleated Red Blood Cells % 0.0 Immature Granulocytes # 0.020 Neutrophils # 3.0 Lymphocytes # 0.4 L Monocytes # 0.3 Eosinophils # 0.2 Basophils # 0.0 Nucleated Red Blood Cells # 0.0 Prothrombin Time 13.6 Prothrombin Time Ratio 1.1 INR International Normalized Ratio 1.03 Activated Partial Thromboplast Time 35.2 H Sodium Level 147 H Potassium Level 5.0 Chloride Level 120 H Carbon Dioxide Level 20 L Anion Gap 7 Blood Urea Nitrogen 49 H Creatinine 1.41 H Est Glomerular Filtrat Rate mL/min 55 L Glucose Level 100 Calcium Level 8.7 Magnesium Level 2.1 Total Bilirubin 0.2 Direct Bilirubin 0.00 Indirect Bilirubin 0.2 Aspartate Amino Transf (AST/SGOT) 21 Alanine Aminotransferase (ALT/SGPT) 11 L Alkaline Phosphatase 106 Total Protein 7.1 Albumin 3.0 L Globulin 4.10 H Albumin/Globulin Ratio 0.73 Exam/Review of Systems Exam Vitals Vital Signs Date Temp Pulse Resp B/P (MAP) Pulse Ox O2 O2 Flow FiO2 Time Delivery Rate 05/21/18 109 16:20 05/21/18 98.0 20 134/95 97 15:53 (108) 05/21/18 30 13:20 05/21/18 Mechanical 04:00 Ventilator Intake and Output 05/20/18 05/20/18 05/21/18 1515:00 23:00 07:00 IntakeIntake Total 1550 ml 1090 ml OutputOutput Total 1850 ml 1600 ml BalanceBalance -300 ml -510 ml Exam Constitutional: alert, awake Neck: supple, other (Tracheostomy) Respiratory: diminished breath sounds, other (Scattered Rhonchi) Cardiovascular: regular rate and rhythm Gastrointestinal: soft, non-tender, other (G-tube) Genitourinary - Male: other (Suprapubic catheter) Extremities: normal pulses, other (Contracted) Neurological: other (Paraplegia) Skin: other (Multiple wounds) Results Results 24hrs Laboratory Tests Test 05/21/18 06:16 White Blood Count 3.9 #L Red Blood Count 2.61 L Hemoglobin 7.3 L Hematocrit 25.1 L Mean Corpuscular Volume 96.2 Mean Corpuscular Hemoglobin 28.0 L Mean Corpuscular Hemoglobin Concent 29.1 L Red Cell Distribution Width 15.7 H Platelet Count 160 Mean Platelet Volume 11.5 H Immature Granulocytes % 0.500 H Neutrophils % 76.6 Lymphocytes % 11.1 L Monocytes % 6.7 Eosinophils % 4.6 Basophils % 0.5 Nucleated Red Blood Cells % 0.0 Immature Granulocytes # 0.020 Neutrophils # 3.0 Lymphocytes # 0.4 L Monocytes # 0.3 Eosinophils # 0.2 Basophils # 0.0 Nucleated Red Blood Cells # 0.0 Prothrombin Time 13.6 Prothrombin Time Ratio 1.1 INR International Normalized Ratio 1.03 Activated Partial Thromboplast Time 35.2 H Sodium Level 147 H Potassium Level 5.0 Chloride Level 120 H Carbon Dioxide Level 20 L Anion Gap 7 Blood Urea Nitrogen 49 H Creatinine 1.41 H Est Glomerular Filtrat Rate mL/min 55 L Glucose Level 100 Calcium Level 8.7 Magnesium Level 2.1 Total Bilirubin 0.2 Direct Bilirubin 0.00 Indirect Bilirubin 0.2 Aspartate Amino Transf (AST/SGOT) 21 Alanine Aminotransferase (ALT/SGPT) 11 L Alkaline Phosphatase 106 Total Protein 7.1 Albumin 3.0 L Globulin 4.10 H Albumin/Globulin Ratio 0.73 Medications Medication Current Medications IV Flush (NS 3 ml) 3 ml PER PROTOCOL IV ; Start 05/14/18 at 18:30 Lorazepam (Ativan) 0.5 mg Q6H PRN IV .ANXIETY Last administered on 05/20/18 22:26; Admin Dose 0.5 MG; Start 05/14/18 at 18:30 Ondansetron HCl (Zofran Inj) 4 mg Q6H PRN IV NAUSEA/VOMITING; Start 05/14/18 at 18:30 Acetaminophen/ Hydrocodone Bitart ([place] (5/325)) 1 tab Q6H PRN PO .PAIN 4-6; Start 05/14/18 at 18:30 Acetaminophen/ Hydrocodone Bitart ([place] (5/325)) 2 tab Q6H PRN PO .PAIN 7-10 Last administered on 05/21/18at 12:45; Admin Dose 2 TAB; Start 05/14/18 at 18:30 Hydromorphone HCl (Dilaudid) 0.5 mg Q4H PRN IV .PAIN 7-10 Last administered on 05/21/18 14:02; Admin Dose 0.5 MG; Start 05/14/18 at 18:30 Docusate Sodium (Colace) 100 mg Q12H PRN PO .CONSTIPATION; Start 05/14/18 at 18:30 Magnesium Hydroxide (Milk Of Mag) 30 ml DAILY PRN PO .CONSTIPATION; Start 05/14/18 at 18:30 Famotidine (Pepcid) 20 mg DAILY PO Last administered on 05/21/18 09:59; Admin Dose 20 MG; Start 05/14/18 at 21:00 Enoxaparin Sodium (Lovenox) 30 mg DAILY SC Last administered on 05/21/18 11:02; Admin Dose 30 MG; Start 05/15/18 at 09:00 Miscellaneous Information (Pending Santyl Order For Wound Care) This patient noriega... PRN PRN XX WOUND CARE; Start 05/14/18 at 23:00 Acetaminophen (Tylenol Liquid) 650 mg Q6 PRN PO MILD PAIN(1-3)OR ELEVATED TEMP Last administered on 05/16/18 21:13; Admin Dose 650 MG; Start 05/15/18 at 07:00 Albuterol (Ventolin Hfa) 4 puff Q6H RESP THERAPY INH Last administered on 05/21/18 16:02; Admin Dose 4 PUFF; Start 05/15/18 at 14:00 Ipratropium [place] (Atrovent Hfa) 4 puff Q6H RESP THERAPY INH Last administered on 05/21/18 16:02; Admin Dose 4 PUFF; Start 05/15/18 at 14:00 Collagenase (Santyl) 1 applic DAILY TOP Last administered on 05/21/18 09:59; Admin Dose 1 APPLIC; Start 05/15/18 at 13:00 Meropenem/Sodium Chloride 50 ml @ 100 mls/hr Q12 IVPB Last administered on 05/21/18 10:57; Admin Dose 100 MLS/HR; Start 05/15/18 at 16:00 Multivit/Ca Carb/ B Cmplx/FA/Prenat ([place]) 1 tab DAILY GTB Last administered on 05/21/18 09:59; Admin Dose 1 TAB; Start 05/16/18 at 09:00 Zinc Sulfate (Zinc Sulfate) 220 mg DAILY GTB Last administered on 05/21/18 09:59; Admin Dose 220 MG; Start 05/16/18 at 09:00 Ascorbic Acid (Vitamin C) 250 mg DAILY GTB Last administered on 05/21/18 09:59; Admin Dose 250 MG; Start 05/16/18 at 09:00 Chlorhexidine Gluconate (Peridex) 15 ml Q12 MM Last administered on 05/21/18 09:59; Admin Dose 15 ML; Start 05/15/18 at 16:30 Levetiracetam (Keppra Liquid) 500 mg Q12 GTB Last administered on 05/21/18 09:59; Admin Dose 500 MG; Start 05/15/18 at 16:30 Quetiapine Fumarate (Seroquel) 50 mg BID GTB Last administered on 05/21/18 09:59; Admin Dose 50 MG; Start 05/15/18 at 21:00 IV Flush (NS 10 ml) 10 ml PRN PRN IV IV PROTOCOL; Start 05/15/18 at 18:30 Docusate Sodium (Colace Liquid Cup) 100 mg BID GTB Last administered on 05/21/18 09:59; Admin Dose 100 MG; Start 05/15/18 at 21:00 Potassium Chloride/Dextrose/ Sod Cl 1,000 ml @ 50 mls/hr Q20H IV Last administered on 05/20/18 09:59; Admin Dose 80 MLS/HR; Start 05/17/18 at 19:30 AISSATOU DUNCAN May 21, 2018 16:41
[2018-05-21] MEDS: DEXTROSE 5% 1,000 ML IV SCH (21:11)
[2018-05-22] VITALS (24 sets, daily range): BP systolic 126–152; BP diastolic 79–110; PULSE 99–120; RESP 20–36
[2018-05-22] MEDS: ALBUTEROL HFA 8 GM INHALER INH SCH ×4 (01:12→19:23)
[2018-05-22] MEDS: IPRATROPIUM (HFA) 12.9 GM INHALER INH SCH ×4 (01:13→19:23)
[2018-05-22] MEDS: HYDROmorphONE 0.5 MG/0.5 ML SYG IV PRN ×6 (02:22→22:40)
[2018-05-22] MEDS: ENOXAPARIN 30 MG/0.3 ML SYG SC SCH (09:00)
[2018-05-22] MEDS: FAMOTIDINE 20 MG TAB PO SCH (09:00)
[2018-05-22] MEDS: CHLORHEXIDINE GLUCONATE 15 ML UD CUP MM SCH ×2 (09:45→21:31)
[2018-05-22] MEDS: MEROPENEM 500MG/50 ML (PMX) 50 ML IVPB SCH ×2 (09:45→21:30)
[2018-05-22] MEDS: DOCUSATE SODIUM 10 MG/ML (10ML CUP) GTB SCH ×2 (09:45→21:31)
[2018-05-22] MEDS: ASCORBIC ACID 250 MG TAB GTB SCH (09:45)
[2018-05-22] MEDS: ZINC SULFATE 220 MG CAP GTB SCH (09:45)
[2018-05-22] MEDS: QUETIAPINE 25 MG TAB GTB SCH ×2 (09:46→21:32)
[2018-05-22] MEDS: MULTIVIT/CA CARB/B CMPLX/FA TAB GTB SCH (09:46)
[2018-05-22] MEDS: BALSAM PERU/CASTOR OIL 60 GM TUBE TOP SCH ×2 (09:46→21:32)
[2018-05-22] MEDS: LEVETIRACETAM (100 MG/ML) 5ML CUP GTB SCH ×2 (09:46→21:31)
[2018-05-22] MEDS: COLLAGENASE 5 GM (UD JAR) TOP SCH (09:46)
[2018-05-22] MEDS: DEXTROSE 5% 1,000 ML IV SCH (10:31)
--- NOTE | 2018-05-22 13:13 | CONS ---
Assessment/Plan Assessment/Plan Hospital Course (Demo Recall) No acute events per report, patient is awake, looks comfortable, no fevers Microbiology: Urine culture grew Proteus mirabilis, sputum culture growing further dentia, blood culture grew staph sp. 1 out of 2 sets Indwelling: Trach, PEG, PICC line, suprapubic catheter Allergies: Tetracycline Antimicrobials: Meropenem Physical examination: Chronically ill-appearing middle-aged man who is in no distress. Head atraumatic normocephalic neck is supple chest rise symmetrical breath sounds diminished bases. Heart: S1-S2. Abdomen soft bowel sounds present. Extremities wasted without cyanosis Assessment: 1. S/p severe sepsis with shock 2. Bacteremia, cw contaminant 2. Healthcare associated pneumonia 3. Urinary tract infection 4. Chronic respiratory failure and dysphagia 5. Acute on chronic kidney disease 6. Neurogenic bladder status post suprapubic catheter placement 7. Incomplete quadriplegia 8. History of nephrectomy 9. History of scabies 10. Multiple chronic wounds Plan: Remains stable, continue abx for couple more days Consultation Date/Type/Reason Admit Date/Time May 14, 2018 at 18:34 Initial Consult Date 05/15/18 Type of Consult id Requesting Provider: JOSÉ ANTONIO MIRZA MD Date/Time of Note DATE: 05/22/18 TIME: 13:12 Exam/Review of Systems Exam Vitals Vital Signs Date Temp Pulse Resp B/P (MAP) Pulse Ox O2 O2 Flow FiO2 Time Delivery Rate 05/22/18 119 12:24 05/22/18 29 100 30 11:55 05/22/18 98.0 152/107 11:46 (122) 05/21/18 Mechanical 04:00 Ventilator Intake and Output 05/21/18 05/21/18 05/22/18 1515:00 23:00 07:00 IntakeIntake Total 1090 ml 750 ml OutputOutput Total 1800 ml 3000 ml BalanceBalance -710 ml -2250 ml Results Result Diagram: 05/21/18 0616 05/21/18 0616 Medications Medication Current Medications IV Flush (NS 3 ml) 3 ml PER PROTOCOL IV ; Start 05/14/18 at 18:30 Lorazepam (Ativan) 0.5 mg Q6H PRN IV .ANXIETY Last administered on 05/20/18at 22:26; Admin Dose 0.5 MG; Start 05/14/18 at 18:30 Ondansetron HCl (Zofran Inj) 4 mg Q6H PRN IV NAUSEA/VOMITING; Start 05/14/18 at 18:30 Acetaminophen/ Hydrocodone Bitart ([place] (5/325)) 1 tab Q6H PRN PO .PAIN 4-6; Start 05/14/18 at 18:30 Acetaminophen/ Hydrocodone Bitart ([place] (5/325)) 2 tab Q6H PRN PO .PAIN 7-10 Last administered on 05/21/18 21:05; Admin Dose 2 TAB; Start 05/14/18 at 18:30 Hydromorphone HCl (Dilaudid) 0.5 mg Q4H PRN IV .PAIN 7-10 Last administered on 05/22/18 10:31; Admin Dose 0.5 MG; Start 05/14/18 at 18:30 Docusate Sodium (Colace) 100 mg Q12H PRN PO .CONSTIPATION; Start 05/14/18 at 18:30 Magnesium Hydroxide (Milk Of Mag) 30 ml DAILY PRN PO .CONSTIPATION; Start 05/14/18 at 18:30 Famotidine (Pepcid) 20 mg DAILY PO Last administered on 05/22/18 09:00; Admin Dose 20 MG; Start 05/14/18 at 21:00 Enoxaparin Sodium (Lovenox) 30 mg DAILY SC Last administered on 05/22/18 09:00; Admin Dose 30 MG; Start 05/15/18 at 09:00 Miscellaneous Information (Pending Santyl Order For Wound Care) This patient noriega... PRN PRN XX WOUND CARE; Start 05/14/18 at 23:00 Acetaminophen (Tylenol Liquid) 650 mg Q6 PRN PO MILD PAIN(1-3)OR ELEVATED TEMP Last administered on 05/16/18 21:13; Admin Dose 650 MG; Start 05/15/18 at 07:00 Albuterol (Ventolin Hfa) 4 puff Q6H RESP THERAPY INH Last administered on 05/22/18 08:32; Admin Dose 4 PUFF; Start 05/15/18 at 14:00 Ipratropium [place] (Atrovent Hfa) 4 puff Q6H RESP THERAPY INH Last administered on 05/22/18 08:32; Admin Dose 4 PUFF; Start 05/15/18 at 14:00 Collagenase (Santyl) 1 applic DAILY TOP Last administered on 05/22/18 09:46; Admin Dose 1 APPLIC; Start 05/15/18 at 13:00 Meropenem/Sodium Chloride 50 ml @ 100 mls/hr Q12 IVPB Last administered on 05/22/18 09:45; Admin Dose 100 MLS/HR; Start 05/15/18 at 16:00 Multivit/Ca Carb/ B Cmplx/FA/Prenat ([place]) 1 tab DAILY GTB Last administered on 05/22/18 09:46; Admin Dose 1 TAB; Start 05/16/18 at 09:00 Zinc Sulfate (Zinc Sulfate) 220 mg DAILY GTB Last administered on 05/22/18 09:45; Admin Dose 220 MG; Start 05/16/18 at 09:00 Ascorbic Acid (Vitamin C) 250 mg DAILY GTB Last administered on 05/22/18 09:45; Admin Dose 250 MG; Start 05/16/18 at 09:00 Chlorhexidine Gluconate (Peridex) 15 ml Q12 MM Last administered on 05/22/18 09:45; Admin Dose 15 ML; Start 05/15/18 at 16:30 Levetiracetam (Keppra Liquid) 500 mg Q12 GTB Last administered on 05/22/18 09:46; Admin Dose 500 MG; Start 05/15/18 at 16:30 Quetiapine Fumarate (Seroquel) 50 mg BID GTB Last administered on 05/22/18 09:46; Admin Dose 50 MG; Start 05/15/18 at 21:00 IV Flush (NS 10 ml) 10 ml PRN PRN IV IV PROTOCOL; Start 05/15/18 at 18:30 Docusate Sodium (Colace Liquid Cup) 100 mg BID GTB Last administered on 05/22/18 09:45; Admin Dose 100 MG; Start 05/15/18 at 21:00 Dextrose 1,000 ml @ 75 mls/hr [id number] IV Last administered on 05/22/18 10:31; Admin Dose 75 MLS/HR; Start 05/21/18 at 20:00; Stop 05/23/18 at 11:59 REGINALDO CHERY NP May 22, 2018 13:13
--- NOTE | 2018-05-22 15:19 | PN ---
DATE: 05/22/2018 SUBJECTIVE: The patient's general condition is same. He is on ventilator support for long-term. He is awake, responsive. He is breathing comfortably with the ventilator support. PHYSICAL EXAMINATION: VITAL SIGNS: His vital signs are stable. Temperature 98.3, blood pressure 124/96, pulse rate 120, r espirations 20, pulse oximetry 96% saturation. NECK: Tracheal secretions are moderate, clear. No bleeding seen. HEART: Regular rhythm with sinus tachycardia. CHEST: Breath sounds are heard bilaterally, somewhat diminished in the lower lung [place], are mostly clear except for a few occasional rales and rhonchi at the lung bases. ABDOMEN: Soft. No distention seen. Tolerating tube feedings. No vomiting reported. EXTREMITIES: Show paraplegia. No edema. LABORATORY DATA: There are no lab results from today. IMPRESSION: 1. Sepsis. 2. Healthcare-acquired pneumonia. 3. Chronic ventilator dependent respiratory failure. 4. Inbmr-[id number] renal failure, improving. 5. History of nephrolithiasis. 6. History of neurogenic bladder. 7. History of paraplegia secondary to spinal cord injury. 8. History of bipolar disorder with psychosis. 9. Status post tracheostomy. 10. Status post gastrostomy. 11. Status post suprapubic cystostomy. RECOMMENDATIONS: 1. Continue long-term ventilator support. 2. Continue antibiotics per infectious disease field consultant. 3. Continue bronchodilator inhalation therapy to clear the secretions and improve bronchial hygiene. 4. Continue G-tube feedings. 5. Continue deep vein thrombosis prophylaxis. 6. Continue gastrointestinal prophylaxis. Dictated By: HUMBERTO PEREZ MD SR/NTS Conf#: [id number] DID#: [id number] CC: JOSÉ ANTONIO MIRZA MD;*EndCC*
--- NOTE | 2018-05-22 15:55 | CONS ---
Assessment/Plan Assessment/Plan Assessment/Plan (Daily) - Hyperkalemia- K 5.3; SP Kayexalate per PMD; FU am BMP 1. Acute on chronic renal failure 2. Hypernatremia- resolved 3. UTI 4. history of paraplegia secondary to cervical spine injury, ventilator dep endent respiratory failure with striking ostomy, dysphagia with G-tube, neurogenic bladder with suprapubic catheter, right nephrectomy, left renal renal nephrolithiasis with history of lithotripsy and stent placement and urethral stent removal, history of bipolar disorder Plan: BUN/Cr improved to 43/1.26, Na- 140, K- 5.3, HCO3- 20- IVF to D5W at 75 cc/hr x 3 liter then stop IV abx meropenem as per ID, Renally dose all abx and monitor electrlytes and replace as needed will follow up Patient seen in collaboration with Dr Barker Consultation Date/Type/Reason Admit Date/Time May 14, 2018 at 18:34 Initial Consult Date 05/15/18 Type of Consult NEPHROLOGY Requesting Provider: JOSÉ ANTONIO MIRZA MD Date/Time of Note DATE: 05/22/18 TIME: 15:54 24 HR Interval Summary Free Text/Dictation -c/o generalized pain - tolerating po diet -UO 4.8L/24 hrs -no new events reported last night per staff Subjective hx not possible: pt non-verbal Constitutional: requiring O2 Detailed Summary Eyes: no complaints ENT: no complaints Respiratory: no complaints Cardiovascular: no complaints Gastrointestinal: no complaints Genitourinary: no complaints Musculoskeletal: restricted range of motion Skin: other Lymphatic: no complaints Psychological: nl mood/affect Immunologic: no complaints Exam/Review of Systems Exam Vitals Vital Signs Date Temp Pulse Resp B/P (MAP) Pulse Ox O2 O2 Flow FiO2 Time Delivery Rate 05/22/18 119 12:24 05/22/18 29 100 30 11:55 05/22/18 98.0 152/107 11:46 (122) 05/21/18 Mechanical 04:00 Ventilator Intake and Output 05/21/18 05/21/18 05/22/18 1515:00 23:00 07:00 IntakeIntake Total 1090 ml 750 ml OutputOutput Total 1800 ml 3000 ml BalanceBalance -710 ml -2250 ml Constitutional: alert, well developed, non-verbal, frail Psych: nl mood/affect Head: normocephalic, atraumatic Eyes: EOMI ENMT: nl external ears & nose Neck: supple Respiratory: clear to auscultation, other (trach intact) Cardiovascular: nl pulses, other (S1S2) Gastrointestinal: soft, other (GT intact) Musculoskeletal: joint tenderness, muscle weakness, range of motion Neurological: nl speech, confused Lymph: nontender Results Result Diagram: 05/22/18 1442 05/21/18 0616 Results 24hrs Laboratory Tests Test 05/22/18 14:42 White Blood Count 4.2 L Red Blood Count 2.60 L Hemoglobin 7.4 L Hematocrit 24.9 L Mean Corpuscular Volume 95.8 Mean Corpuscular Hemoglobin 28.5 L Mean Corpuscular Hemoglobin Concent 29.7 L Red Cell Distribution Width 15.5 H Platelet Count 129 L Mean Platelet Volume 12.5 H Immature Granulocytes % 0.500 H Neutrophils % 81.0 H Lymphocytes % 8.8 L Monocytes % 6.4 Eosinophils % 3.1 Basophils % 0.2 Nucleated Red Blood Cells % 0.0 Immature Granulocytes # 0.020 Neutrophils # 3.4 Lymphocytes # 0.4 L Monocytes # 0.3 Eosinophils # 0.1 Basophils # 0.0 Nucleated Red Blood Cells # 0.0 Medications Medication Current Medications IV Flush (NS 3 ml) 3 ml PER PROTOCOL IV ; Start 05/14/18 at 18:30 Lorazepam (Ativan) 0.5 mg Q6H PRN IV .ANXIETY Last administered on 05/20/18at 22:26; Admin Dose 0.5 MG; Start 05/14/18 at 18:30 Ondansetron HCl (Zofran Inj) 4 mg Q6H PRN IV NAUSEA/VOMITING; Start 05/14/18 at 18:30 Acetaminophen/ Hydrocodone Bitart ([place] (5/325)) 1 tab Q6H PRN PO .PAIN 4-6; Start 05/14/18 at 18:30 Acetaminophen/ Hydrocodone Bitart ([place] (5/325)) 2 tab Q6H PRN PO .PAIN 7-10 Last administered on 05/21/18at 21:05; Admin Dose 2 TAB; Start 05/14/18 at 18:30 Hydromorphone HCl (Dilaudid) 0.5 mg Q4H PRN IV .PAIN 7-10 Last administered on 05/22/18 14:46; Admin Dose 0.5 MG; Start 05/14/18 at 18:30 Docusate Sodium (Colace) 100 mg Q12H PRN PO .CONSTIPATION; Start 05/14/18 at 18:30 Magnesium Hydroxide (Milk Of Mag) 30 ml DAILY PRN PO .CONSTIPATION; Start 05/14/18 at 18:30 Famotidine (Pepcid) 20 mg DAILY PO Last administered on 05/22/18 09:00; Admin Dose 20 MG; Start 05/14/18 at 21:00 Enoxaparin Sodium (Lovenox) 30 mg DAILY SC Last administered on 05/22/18 09:00; Admin Dose 30 MG; Start 05/15/18 at 09:00 Miscellaneous Information (Pending Santyl Order For Wound Care) This patient noriega... PRN PRN XX WOUND CARE; Start 05/14/18 at 23:00 Acetaminophen (Tylenol Liquid) 650 mg Q6 PRN PO MILD PAIN(1-3)OR ELEVATED TEMP Last administered on 05/16/18 21:13; Admin Dose 650 MG; Start 05/15/18 at 07:00 Albuterol (Ventolin Hfa) 4 puff Q6H RESP THERAPY INH Last administered on 05/22/18 14:25; Admin Dose 4 PUFF; Start 05/15/18 at 14:00 Ipratropium [place] (Atrovent Hfa) 4 puff Q6H RESP THERAPY INH Last administered on 05/22/18 14:25; Admin Dose 4 PUFF; Start 05/15/18 at 14:00 Collagenase (Santyl) 1 applic DAILY TOP Last administered on 05/22/18 09:46; Admin Dose 1 APPLIC; Start 05/15/18 at 13:00 Meropenem/Sodium Chloride 50 ml @ 100 mls/hr Q12 IVPB Last administered on 05/22/18 09:45; Admin Dose 100 MLS/HR; Start 05/15/18 at 16:00 Multivit/Ca Carb/ B Cmplx/FA/Prenat ([place]) 1 tab DAILY GTB Last administered on 05/22/18 09:46; Admin Dose 1 TAB; Start 05/16/18 at 09:00 Zinc Sulfate (Zinc Sulfate) 220 mg DAILY GTB Last administered on 05/22/18 09:45; Admin Dose 220 MG; Start 05/16/18 at 09:00 Ascorbic Acid (Vitamin C) 250 mg DAILY GTB Last administered on 05/22/18 09:45; Admin Dose 250 MG; Start 05/16/18 at 09:00 Chlorhexidine Gluconate (Peridex) 15 ml Q12 MM Last administered on 05/22/18 09:45; Admin Dose 15 ML; Start 05/15/18 at 16:30 Levetiracetam (Keppra Liquid) 500 mg Q12 GTB Last administered on 05/22/18 09:46; Admin Dose 500 MG; Start 05/15/18 at 16:30 Quetiapine Fumarate (Seroquel) 50 mg BID GTB Last administered on 05/22/18 09:46; Admin Dose 50 MG; Start 05/15/18 at 21:00 IV Flush (NS 10 ml) 10 ml PRN PRN IV IV PROTOCOL; Start 05/15/18 at 18:30 Docusate Sodium (Colace Liquid Cup) 100 mg BID GTB Last administered on 05/22/18 09:45; Admin Dose 100 MG; Start 05/15/18 at 21:00 Dextrose 1,000 ml @ 75 mls/hr [id number] IV Last administered on 05/22/18 10:31; Admin Dose 75 MLS/HR; Start 05/21/18 at 20:00; Stop 05/23/18 at 11:59 NAE VELAZCO May 22, 2018 15:54
--- NOTE | 2018-05-22 17:15 | PN ---
Date/Time of Note Date/Time of Note DATE: 05/22/18 TIME: 17:12 Assessment/Plan VTE Prophylaxis Risk score (from Ns)>0 risk: 6 SCD applied (from Ns): Yes Pharmacological prophylaxis: LMWH Lines/Catheters IV Catheter Type (from [facility]): PICC Line Central line still needed: Yes Urinary Cath still in place: Yes Reason Cath still needed: urinary retention Assessment/Plan Hospital Course Patient is tachycardic, potassium is 5.3 and will give Kayexalate, patient continues on ventilatory support, continues on meropenem. Assessment/Plan - S/p sepsis secondary to pneumonia, continue antibiotics per ID. Dr. Maciel is following in infection disease consultation. - Health care associated pneumonia - Proteus M UTI - Acute on chronic renal failure, continue IV fluids. Continue to monitor BUN and creatinine. Dr. Barker is following patient in nephrology consultation. - Ventilator dependent respiratory failure, continue pulmonary toilet and bronchodilators. Dr Ames is following in pulmonology consultation. - Neurogenic bladder with suprapubic catheter. - Left renal nephrolithiasis, hx of lithotripsy with insertion and subsequent removal of ureteral JJ stent. - Hx of right nephrectomy - Dysphagia with gastrostomy tube. - Multiple decubitus ulcers present on admission. Continue current care per wound consult recommendations, offloading air mattress, optimize nutrition. - Cervical spine injury with paraplegia. - Bipolar disorder with psychosis. Further recommendations based on clinical course. Plan of care discussed with Dr. Barreto. Result Diagram: 05/22/18 1442 05/22/18 1442 Results 24hrs Laboratory Tests Test 05/22/18 14:42 White Blood Count 4.2 L Red Blood Count 2.60 L Hemoglobin 7.4 L Hematocrit 24.9 L Mean Corpuscular Volume 95.8 Mean Corpuscular Hemoglobin 28.5 L Mean Corpuscular Hemoglobin Concent 29.7 L Red Cell Distribution Width 15.5 H Platelet Count 129 L Mean Platelet Volume 12.5 H Immature Granulocytes % 0.500 H Neutrophils % 81.0 H Lymphocytes % 8.8 L Monocytes % 6.4 Eosinophils % 3.1 Basophils % 0.2 Nucleated Red Blood Cells % 0.0 Immature Granulocytes # 0.020 Neutrophils # 3.4 Lymphocytes # 0.4 L Monocytes # 0.3 Eosinophils # 0.1 Basophils # 0.0 Nucleated Red Blood Cells # 0.0 Sodium Level 140 Potassium Level 5.3 H Chloride Level 112 H Carbon Dioxide Level 20 L Anion Gap 8 Blood Urea Nitrogen 43 H Creatinine 1.26 H Est Glomerular Filtrat Rate mL/min > 60 Glucose Level 236 #H Calcium Level 8.6 Exam/Review of Systems Exam Vitals Vital Signs Date Temp Pulse Resp B/P (MAP) Pulse Ox O2 O2 Flow FiO2 Time Delivery Rate 05/22/18 101 26 98 30 17:05 05/22/18 98.7 152/110 16:01 (124) 05/21/18 Mechanical 04:00 Ventilator Intake and Output 05/21/18 05/21/18 05/22/18 1515:00 23:00 07:00 IntakeIntake Total 1090 ml 750 ml OutputOutput Total 1800 ml 3000 ml BalanceBalance -710 ml -2250 ml Exam Constitutional: alert, awake Neck: supple, other (Tracheostomy) Respiratory: diminished breath sounds, other (Scattered Rhonchi) Cardiovascular: regular rate and rhythm Gastrointestinal: soft, non-tender, other (G-tube) Genitourinary - Male: other (Suprapubic catheter) Extremities: normal pulses, other (Contracted) Neurological: other (Paraplegia) Skin: other (Multiple wounds) Results Results 24hrs Laboratory Tests Test 05/22/18 14:42 White Blood Count 4.2 L Red Blood Count 2.60 L Hemoglobin 7.4 L Hematocrit 24.9 L Mean Corpuscular Volume 95.8 Mean Corpuscular Hemoglobin 28.5 L Mean Corpuscular Hemoglobin Concent 29.7 L Red Cell Distribution Width 15.5 H Platelet Count 129 L Mean Platelet Volume 12.5 H Immature Granulocytes % 0.500 H Neutrophils % 81.0 H Lymphocytes % 8.8 L Monocytes % 6.4 Eosinophils % 3.1 Basophils % 0.2 Nucleated Red Blood Cells % 0.0 Immature Granulocytes # 0.020 Neutrophils # 3.4 Lymphocytes # 0.4 L Monocytes # 0.3 Eosinophils # 0.1 Basophils # 0.0 Nucleated Red Blood Cells # 0.0 Sodium Level 140 Potassium Level 5.3 H Chloride Level 112 H Carbon Dioxide Level 20 L Anion Gap 8 Blood Urea Nitrogen 43 H Creatinine 1.26 H Est Glomerular Filtrat Rate mL/min > 60 Glucose Level 236 #H Calcium Level 8.6 Medications Medication Current Medications IV Flush (NS 3 ml) 3 ml PER PROTOCOL IV ; Start 05/14/18 at 18:30 Lorazepam (Ativan) 0.5 mg Q6H PRN IV .ANXIETY Last administered on 05/20/18 22:26; Admin Dose 0.5 MG; Start 05/14/18 at 18:30 Ondansetron HCl (Zofran Inj) 4 mg Q6H PRN IV NAUSEA/VOMITING; Start 05/14/18 at 18:30 Acetaminophen/ Hydrocodone Bitart ([place] (5/325)) 1 tab Q6H PRN PO .PAIN 4-6; Start 05/14/18 at 18:30 Acetaminophen/ Hydrocodone Bitart ([place] (5/325)) 2 tab Q6H PRN PO .PAIN 7-10 Last administered on 05/21/18at 21:05; Admin Dose 2 TAB; Start 05/14/18 at 18:30 Hydromorphone HCl (Dilaudid) 0.5 mg Q4H PRN IV .PAIN 7-10 Last administered on 05/22/18at 14:46; Admin Dose 0.5 MG; Start 05/14/18 at 18:30 Docusate Sodium (Colace) 100 mg Q12H PRN PO .CONSTIPATION; Start 05/14/18 at 18:30 Magnesium Hydroxide (Milk Of Mag) 30 ml DAILY PRN PO .CONSTIPATION; Start 05/14/18 at 18:30 Famotidine (Pepcid) 20 mg DAILY PO Last administered on 05/22/18 09:00; Admin Dose 20 MG; Start 05/14/18 at 21:00 Enoxaparin Sodium (Lovenox) 30 mg DAILY SC Last administered on 05/22/18at 09:00; Admin Dose 30 MG; Start 05/15/18 at 09:00 Miscellaneous Information (Pending Santyl Order For Wound Care) This patient noriega... PRN PRN XX WOUND CARE; Start 05/14/18 at 23:00 Acetaminophen (Tylenol Liquid) 650 mg Q6 PRN PO MILD PAIN(1-3)OR ELEVATED TEMP Last administered on 05/16/18at 21:13; Admin Dose 650 MG; Start 05/15/18 at 07:00 Albuterol (Ventolin Hfa) 4 puff Q6H RESP THERAPY INH Last administered on 05/22/18 14:25; Admin Dose 4 PUFF; Start 05/15/18 at 14:00 Ipratropium [place] (Atrovent Hfa) 4 puff Q6H RESP THERAPY INH Last admin istered on 05/22/18 14:25; Admin Dose 4 PUFF; Start 05/15/18 at 14:00 Collagenase (Santyl) 1 applic DAILY TOP Last administered on 05/22/18 09:46; Admin Dose 1 APPLIC; Start 05/15/18 at 13:00 Meropenem/Sodium Chloride 50 ml @ 100 mls/hr Q12 IVPB Last administered on 05/22/18 09:45; Admin Dose 100 MLS/HR; Start 05/15/18 at 16:00 Multivit/Ca Carb/ B Cmplx/FA/Prenat ([place]) 1 tab DAILY GTB Last administered on 05/22/18 09:46; Admin Dose 1 TAB; Start 05/16/18 at 09:00 Zinc Sulfate (Zinc Sulfate) 220 mg DAILY GTB Last administered on 05/22/18 09:45; Admin Dose 220 MG; Start 05/16/18 at 09:00 Ascorbic Acid (Vitamin C) 250 mg DAILY GTB Last administered on 05/22/18 09:45; Admin Dose 250 MG; Start 05/16/18 at 09:00 Chlorhexidine Gluconate (Peridex) 15 ml Q12 MM Last administered on 05/22/18 09:45; Admin Dose 15 ML; Start 05/15/18 at 16:30 Levetiracetam (Keppra Liquid) 500 mg Q12 GTB Last administered on 05/22/18 09:46; Admin Dose 500 MG; Start 05/15/18 at 16:30 Quetiapine Fumarate (Seroquel) 50 mg BID GTB Last administered on 05/22/18 09:46; Admin Dose 50 MG; Start 05/15/18 at 21:00 IV Flush (NS 10 ml) 10 ml PRN PRN IV IV PROTOCOL; Start 05/15/18 at 18:30 Docusate Sodium (Colace Liquid Cup) 100 mg BID GTB Last administered on 05/22/18 09:45; Admin Dose 100 MG; Start 05/15/18 at 21:00 Dextrose 1,000 ml @ 75 mls/hr [id number] IV Last administered on 05/22/18at 10:31; Admin Dose 75 MLS/HR; Start 05/21/18 at 20:00; Stop 05/23/18 at 11:59 AISSATOU DUNCAN May 22, 2018 17:15
[2018-05-22] MEDS ORDERED: NA POLYST SULFON 15 GM/60 ML BTL PO ONE (17:30)
[2018-05-23] VITALS (22 sets, daily range): BP systolic 124–161; BP diastolic 81–102; PULSE 94–113; RESP 18–34
[2018-05-23] MEDS: DEXTROSE 5% 1,000 ML IV SCH (00:51)
[2018-05-23] MEDS: IPRATROPIUM (HFA) 12.9 GM INHALER INH SCH ×4 (01:10→20:03)
[2018-05-23] MEDS: ALBUTEROL HFA 8 GM INHALER INH SCH ×4 (01:10→20:03)
[2018-05-23] MEDS: HYDROmorphONE 0.5 MG/0.5 ML SYG IV PRN ×5 (02:56→23:22)
[2018-05-23] MEDS: COLLAGENASE 5 GM (UD JAR) TOP SCH (09:00)
[2018-05-23] MEDS: CHLORHEXIDINE GLUCONATE 15 ML UD CUP MM SCH ×2 (10:19→20:56)
[2018-05-23] MEDS: DOCUSATE SODIUM 10 MG/ML (10ML CUP) GTB SCH ×2 (10:19→20:56)
[2018-05-23] MEDS: BALSAM PERU/CASTOR OIL 60 GM TUBE TOP SCH ×2 (10:19→20:57)
[2018-05-23] MEDS: LEVETIRACETAM (100 MG/ML) 5ML CUP GTB SCH ×2 (10:19→20:56)
[2018-05-23] MEDS: MULTIVIT/CA CARB/B CMPLX/FA TAB GTB SCH (10:20)
[2018-05-23] MEDS: ZINC SULFATE 220 MG CAP GTB SCH (10:20)
[2018-05-23] MEDS: QUETIAPINE 25 MG TAB GTB SCH ×2 (10:20→20:57)
[2018-05-23] MEDS: FAMOTIDINE 20 MG TAB PO SCH (10:20)
[2018-05-23] MEDS: ASCORBIC ACID 250 MG TAB GTB SCH (10:20)
[2018-05-23] MEDS: MEROPENEM 500MG/50 ML (PMX) 50 ML IVPB SCH (10:21)
--- NOTE | 2018-05-23 10:24 | CONS ---
Assessment/Plan Assessment/Plan Assessment/Plan (Daily) - Hyperkalemia- K 5.9; will give Kayexalate 30 gm via GT; FU bmp 1500; am BMP 1. Acute on chronic renal failure 2. Hypernatremia- resolved 3. UTI 4. Anemia 5. history of paraplegia secondary to cervical spine injury, ventilator dependent respiratory failure with striking ostomy, dysphagia with G-tube, neurogenic bladder with suprapubic catheter, right nephrectomy, left renal renal nephrolithiasis with history of lithotripsy and stent placement and urethral stent removal, history of bipolar disorder Plan: BUN/Cr improved to 46/1.26, Na- 143, K- 5.9, HCO3- 22- IVF to D5W at 75 cc/hr x 3 liter then stop IV abx meropenem as per ID, Renally dose all abx and monitor electrolytes and replace as needed will follow up Patient seen in collaboration with Dr Barker Consultation Date/Type/Reason Admit Date/Time May 14, 2018 at 18:34 Initial Consult Date 05/15/18 Type of Consult NEPHROLOGY Requesting Provider: JOSÉ ANTONIO MIRZA MD Date/Time of Note DATE: 05/23/18 TIME: 10:24 24 HR Interval Summary Free Text/Dictation -c/o generalized pain - tolerating po diet -UO 1.8L/24 hrs -no new events reported last night per staff Subjective hx not possible: pt non-verbal Constitutional: requiring O2 Detailed Summary Eyes: no complaints ENT: no complaints Respiratory: no complaints Cardiovascular: no complaints Gastrointestinal: no complaints Genitourinary: no complaints Musculoskeletal: restricted range of motion Skin: no complaints Endocrine: no complaints Exam/Review of Systems Exam Vitals Vital Signs Date Temp Pulse Resp B/P (MAP) Pulse Ox O2 O2 Flow FiO2 Time Delivery Rate 05/23/18 102 26 97 30 09:49 05/23/18 97.5 150/102 Trach 07:36 (118) Collar Intake and Output 05/22/18 05/22/18 05/23/18 1414:59 22:59 06:59 IntakeIntake Total 1795 ml OutputOutput Total 1850 ml BalanceBalance -55 ml Constitutional: alert, non-verbal, frail Psych: nl mood/affect Head: normocephalic Eyes: nl lids, nl sclera ENMT: nl external ears & nose Neck: non-tender, other (Trach intact) Respiratory: clear to auscultation Cardiovascular: nl pulses, other (S1S2) Gastrointestinal: soft, non-tender, other (gt intact) Musculoskeletal: muscle weakness, range of motion Extremities: normal pulses Neurological: confused Skin: other (decub) Lymph: nontender Results Result Diagram: 05/23/18 0614 05/23/18 0614 Results 24hrs Laboratory Tests Test 05/22/18 14:42 05/23/18 06:14 White Blood Count 4.2 L 3.2 #L Red Blood Count 2.60 L 2.72 L Hemoglobin 7.4 L 7.7 L Hematocrit 24.9 L 25.8 L Mean Corpuscular Volume 95.8 94.9 Mean Corpuscular Hemoglobin 28.5 L 28.3 L Mean Corpuscular Hemoglobin Concent 29.7 L 29.8 L Red Cell Distribution Width 15.5 H 15.6 H Platelet Count 129 L 150 Mean Platelet Volume 12.5 H 11.8 H Immature Granulocytes % 0.500 H 0.300 Neutrophils % 81.0 H 72.8 Lymphocytes % 8.8 L 13.3 L Monocytes % 6.4 9.5 Eosinophils % 3.1 3.8 Basophils % 0.2 0.3 Nucleated Red Blood Cells % 0.0 0.0 Immature Granulocytes # 0.020 0.010 Neutrophils # 3.4 2.3 Lymphocytes # 0.4 L 0.4 L Monocytes # 0.3 0.3 Eosinophils # 0.1 0.1 Basophils # 0.0 0.0 Nucleated Red Blood Cells # 0.0 0.0 Sodium Level 140 143 Potassium Level 5.3 H 5.9 H Chloride Level 112 H 112 H Carbon Dioxide Level 20 L 22 Anion Gap 8 9 Blood Urea Nitrogen 43 H 46 H Creatinine 1.26 H 1.26 H Est Glomerular Filtrat Rate mL/min > 60 > 60 Glucose Level 236 #H 106 # Calcium Level 8.6 9.0 Medications Medication Current Medications IV Flush (NS 3 ml) 3 ml PER PROTOCOL IV ; Start 05/14/18 at 18:30 Lorazepam (Ativan) 0.5 mg Q6H PRN IV .ANXIETY Last administered on 05/20/18at 22:26; Admin Dose 0.5 MG; Start 05/14/18 at 18:30 Ondansetron HCl (Zofran Inj) 4 mg Q6H PRN IV NAUSEA/VOMITING; Start 05/14/18 at 18:30 Acetaminophen/ Hydrocodone Bitart ([place] (5/325)) 1 tab Q6H PRN PO .PAIN 4-6; Start 05/14/18 at 18:30 Acetaminophen/ Hydrocodone Bitart ([place] (5/325)) 2 tab Q6H PRN PO .PAIN 7-10 Last administered on 05/21/18 21:05; Admin Dose 2 TAB; Start 05/14/18 at 18:30 Hydromorphone HCl (Dilaudid) 0.5 mg Q4H PRN IV .PAIN 7-10 Last administered on 05/23/18 07:07; Admin Dose 0.5 MG; Start 05/14/18 at 18:30 Docusate Sodium (Colace) 100 mg Q12H PRN PO .CONSTIPATION; Start 05/14/18 at 18:30 Magnesium Hydroxide (Milk Of Mag) 30 ml DAILY PRN PO .CONSTIPATION; Start 05/14/18 at 18:30 Famotidine (Pepcid) 20 mg DAILY PO Last administered on 05/22/18 09:00; Admin Dose 20 MG; Start 05/14/18 at 21:00 Enoxaparin Sodium (Lovenox) 30 mg DAILY SC Last administered on 05/22/18 09:00; Admin Dose 30 MG; Start 05/15/18 at 09:00 Miscellaneous Information (Pending Santyl Order For Wound Care) This patient noriega... PRN PRN XX WOUND CARE; Start 05/14/18 at 23:00 Acetaminophen (Tylenol Liquid) 650 mg Q6 PRN PO MILD PAIN(1-3)OR ELEVATED TEMP Last administered on 05/16/18 21:13; Admin Dose 650 MG; Start 05/15/18 at 07:00 Albuterol (Ventolin Hfa) 4 puff Q6H RESP THERAPY INH Last administered on 05/23/18 07:48; Admin Dose 4 PUFF; Start 05/15/18 at 14:00 Ipratropium [place] (Atrovent Hfa) 4 puff Q6H RESP THERAPY INH Last administered on 05/23/18 07:48; Admin Dose 4 PUFF; Start 05/15/18 at 14:00 Collagenase (Santyl) 1 applic DAILY TOP Last administered on 05/22/18 09:46; Admin Dose 1 APPLIC; Start 05/15/18 at 13:00 Meropenem/Sodium Chloride 50 ml @ 100 mls/hr Q12 IVPB Last administered on 05/22/18 21:30; Admin Dose 100 MLS/HR; Start 05/15/18 at 16:00 Multivit/Ca Carb/ B Cmplx/FA/Prenat ([place]) 1 tab DAILY GTB Last administered on 05/22/18 09:46; Admin Dose 1 TAB; Start 05/16/18 at 09:00 Zinc Sulfate (Zinc Sulfate) 220 mg DAILY GTB Last administered on 05/22/18 09:45; Admin Dose 220 MG; Start 05/16/18 at 09:00 Ascorbic Acid (Vitamin C) 250 mg DAILY GTB Last administered on 05/22/18 09 :45; Admin Dose 250 MG; Start 05/16/18 at 09:00 Chlorhexidine Gluconate (Peridex) 15 ml Q12 MM Last administered on 05/22/18 21:31; Admin Dose 15 ML; Start 05/15/18 at 16:30 Levetiracetam (Keppra Liquid) 500 mg Q12 GTB Last administered on 05/22/18 21:31; Admin Dose 500 MG; Start 05/15/18 at 16:30 Quetiapine Fumarate (Seroquel) 50 mg BID GTB Last administered on 05/22/18 21:32; Admin Dose 50 MG; Start 05/15/18 at 21:00 IV Flush (NS 10 ml) 10 ml PRN PRN IV IV PROTOCOL; Start 05/15/18 at 18:30 Docusate Sodium (Colace Liquid Cup) 100 mg BID GTB Last administered on 05/22/18 21:31; Admin Dose 100 MG; Start 05/15/18 at 21:00 Dextrose 1,000 ml @ 75 mls/hr [id number] IV Last administered on 05/23/18 00:51; Admin Dose 75 MLS/HR; Start 05/21/18 at 20:00; Stop 05/23/18 at 11:59 NAE VELAZCO May 23, 2018 10:24
[2018-05-23] MEDS ORDERED: NA POLYST SULFON 15 GM/60 ML BTL GTB ONE (10:30)
--- NOTE | 2018-05-23 10:30 | PN ---
DATE: 05/23/2018 SUBJECTIVE: The patient is breathing comfortably. He is fully awake, alert and can communicate easi ly. His breathing appears comfortable and synchronized with the ventilator support. PHYSICAL EXAMINATION: VITAL SIGNS: Temperature 97.5, blood pressure 150/102, respirations 26, pulse oximetry 96% saturatio n. Respiratory rate is 28 per minute. NECK: Tracheal secretions are minimal to moderate. No bleeding seen. HEART: Regular rhythm with sinus tachycardia. CHEST: Breath sounds are heard bilaterally, more diminished in the lower lung [place] with few interm ittent rales and rhonchi. ABDOMEN: Soft, no distention seen, tolerating G-tube feedings. Bowel sounds are present. EXTREMITIES: Show no edema. He is paraplegic. LABORATORY DATA: Show WBC count of 3200, hemoglobin 7.7, hematocrit 25.8, platelets within normal li mits at 150,000. Chemistry panel shows sodium 143, potassium 5.9, BUN 46, creatinine 1.2, blood gluc ose is 106. IMAGING STUDIES: Chest x-ray taken today shows bibasilar atelectatic changes, which may be chronic a nd may not resolve completely. Otherwise, the previously seen pneumonia seems to be resolving. IMPRESSION: 1. Sepsis. 2. Healthcare-acquired pneumonia. 3. Chronic ventilator dependent respiratory failure. 4. Acute on chronic renal failure, improving. 5. History of nephrolithiasis. 6. History of neurogenic bladder. 7. History of paraplegia secondary to spinal cord injury. 8. History of bipolar disorder with psychosis. 9. Status post tracheostomy. 10. Status post gastrostomy. RECOMMENDATIONS: 1. Continue long-term ventilator support. 2. Continue antibiotics per infectious disease planning consultant. 3. Continue bronchodilator inhalation therapy to clear the secretions and improve bronchial hygiene. 4. Continue G-tube feedings. 5. Continue deep vein thrombosis prophylaxis. 6. Continue gastrointestinal prophylaxis. Pulmonary status seems to be stable. From pulmonary perspective discharge planning could be initiate d. Dictated By: HUMBERTO PEREZ MD SR/NTS Conf#: [id number] DID#: [id number] CC: JOSÉ ANTONIO MIRZA MD;*EndCC*
[2018-05-23] MEDS: ENOXAPARIN 30 MG/0.3 ML SYG SC SCH (10:37)
--- NOTE | 2018-05-23 13:34 | PN ---
Date/Time of Note Date/Time of Note DATE: 05/23/18 TIME: 13:30 Assessment/Plan VTE Prophylaxis Risk score (from Ns)>0 risk: 6 SCD applied (from [facility] [place]): No SCD contraindicated: patient refusal Pharmacological prophylaxis: LMWH Lines/Catheters IV [facility]ter Type (from [facility] PICC Line Central line still needed: Yes Urinary Cath still in place: Yes Reason Cath still needed: urinary retention Assessment/Plan Hospital Course Patient is awake alert, tachycardic, continues on vent, hyperkalemia with potassium 5.9, s/p Kayexalate yesterday, will get treatment with Kayexalate now. Assessment/Plan - S/p sepsis secondary to pneumonia, continues on meropenem. Dr. Maciel is following in infection disease consultation. - Health care associated pneumonia - Proteus M UTI - Acute on chronic renal failure, continue IV fluids. Continue to monitor BUN and creatinine. Dr. Barker is following patient in nephrology consultation. - Ventilator dependent respiratory failure, continue pulmonary toilet and bronchodilators. Dr Ames is following in pulmonology consultation. - Neurogenic bladder with suprapubic catheter. - Left renal nephrolithiasis, hx of lithotripsy with insertion and subsequent removal of ureteral JJ stent. - Hx of right nephrectomy - Dysphagia with gastrostomy tube. - Multiple decubitus ulcers present on admission. Continue current care per wound consult recommendations, offloading air mattress, optimize nutrition. - Cervical spine injury with paraplegia. - Bipolar disorder with psychosis. Further recommendations based on clinical course. Plan of care discussed with Dr. Barreto. Result Diagram: 05/23/18 0614 05/23/18 0614 Results 24hrs Laboratory Tests Test 05/22/18 14:42 05/23/18 06:14 White Blood Count 4.2 L 3.2 #L Red Blood Count 2.60 L 2.72 L Hemoglobin 7.4 L 7.7 L Hematocrit 24.9 L 25.8 L Mean Corpuscular Volume 95.8 94.9 Mean Corpuscular Hemoglobin 28.5 L 28.3 L Mean Corpuscular Hemoglobin Concent 29.7 L 29.8 L Red Cell Distribution Width 15.5 H 15.6 H Platelet Count 129 L 150 Mean Platelet Volume 12.5 H 11.8 H Immature Granulocytes % 0.500 H 0.300 Neutrophils % 81.0 H 72.8 Lymphocytes % 8.8 L 13.3 L Monocytes % 6.4 9.5 Eosinophils % 3.1 3.8 Basophils % 0.2 0.3 Nucleated Red Blood Cells % 0.0 0.0 Immature Granulocytes # 0.020 0.010 Neutrophils # 3.4 2.3 Lymphocytes # 0.4 L 0.4 L Monocytes # 0.3 0.3 Eosinophils # 0.1 0.1 Basophils # 0.0 0.0 Nucleated Red Blood Cells # 0.0 0.0 Sodium Level 140 143 Potassium Level 5.3 H 5.9 H Chloride Level 112 H 112 H Carbon Dioxide Level 20 L 22 Anion Gap 8 9 Blood Urea Nitrogen 43 H 46 H Creatinine 1.26 H 1.26 H Est Glomerular Filtrat Rate mL/min > 60 > 60 Glucose Level 236 #H 106 # Calcium Level 8.6 9.0 Exam/Review of Systems Exam Vitals Vital Signs Date Temp Pulse Resp B/P (MAP) Pulse Ox O2 O2 Flow FiO2 Time Delivery Rate 05/23/18 105 26 99 30 11:38 05/23/18 98.2 156/102 Trach 11:14 (120) Collar Intake and Output 05/22/18 05/22/18 05/23/18 1515:00 23:00 07:00 IntakeIntake Total 1795 ml OutputOutput Total 1850 ml BalanceBalance -55 ml Exam Constitutional: alert, awake Neck: supple, other (Tracheostomy) Respiratory: diminished breath sounds, other (Scattered Rhonchi) Cardiovascular: regular rate and rhythm Gastrointestinal: soft, non-tender, other (G-tube) Genitourinary - Male: other (Suprapubic catheter) Extremities: normal pulses, other (Contracted) Neurological: other (Paraplegia) Skin: other (Multiple wounds) Results Results 24hrs Laboratory Tests Test 05/22/18 14:42 05/23/18 06:14 White Blood Count 4.2 L 3.2 #L Red Blood Count 2.60 L 2.72 L Hemoglobin 7.4 L 7.7 L Hematocrit 24.9 L 25.8 L Mean Corpuscular Volume 95.8 94.9 Mean Corpuscular Hemoglobin 28.5 L 28.3 L Mean Corpuscular Hemoglobin Concent 29.7 L 29.8 L Red Cell Distribution Width 15.5 H 15.6 H Platelet Count 129 L 150 Mean Platelet Volume 12.5 H 11.8 H Immature Granulocytes % 0.500 H 0.300 Neutrophils % 81.0 H 72.8 Lymphocytes % 8.8 L 13.3 L Monocytes % 6.4 9.5 Eosinophils % 3.1 3.8 Basophils % 0.2 0.3 Nucleated Red Blood Cells % 0.0 0.0 Immature Granulocytes # 0.020 0.010 Neutrophils # 3.4 2.3 Lymphocytes # 0.4 L 0.4 L Monocytes # 0.3 0.3 Eosinophils # 0.1 0.1 Basophils # 0.0 0.0 Nucleated Red Blood Cells # 0.0 0.0 Sodium Level 140 143 Potassium Level 5.3 H 5.9 H Chloride Level 112 H 112 H Carbon Dioxide Level 20 L 22 Anion Gap 8 9 Blood Urea Nitrogen 43 H 46 H Creatinine 1.26 H 1.26 H Est Glomerular Filtrat Rate mL/min > 60 > 60 Glucose Level 236 #H 106 # Calcium Level 8.6 9.0 Medications Medication Current Medications IV Flush (NS 3 ml) 3 ml PER PROTOCOL IV ; Start 05/14/18 at 18:30 Lorazepam (Ativan) 0.5 mg Q6H PRN IV .ANXIETY Last administered on 05/20/18at 22:26; Admin Dose 0.5 MG; Start 05/14/18 at 18:30 Ondansetron HCl (Zofran Inj) 4 mg Q6H PRN IV NAUSEA/VOMITING; Start 05/14/18 at 18:30 Acetaminophen/ Hydrocodone Bitart ([place] (5/325)) 1 tab Q6H PRN PO .PAIN 4-6; Start 05/14/18 at 18:30 Acetaminophen/ Hydrocodone Bitart ([place] (5/325)) 2 tab Q6H PRN PO .PAIN 7-10 Last administered on 05/21/18at 21:05; Admin Dose 2 TAB; Start 05/14/18 at 18:30 Hydromorphone HCl (Dilaudid) 0.5 mg Q4H PRN IV .PAIN 7-10 Last administered on 05/23/18at 11:17; Admin Dose 0.5 MG; Start 05/14/18 at 18:30 Docusate Sodium (Colace) 100 mg Q12H PRN PO .CONSTIPATION; Start 05/14/18 at 18:30 Magnesium Hydroxide (Milk Of Mag) 30 ml DAILY PRN PO .CONSTIPATION; Start 05/14/18 at 18:30 Famotidine (Pepcid) 20 mg DAILY PO Last administered on 05/23/18 10:20; Admin Dose 20 MG; Start 05/14/18 at 21:00 Enoxaparin Sodium (Lovenox) 30 mg DAILY SC Last administered on 05/23/18 10:37; Admin Dose 30 MG; Start 05/15/18 at 09:00 Miscellaneous Information (Pending Santyl Order For Wound Care) This patient noriega... PRN PRN XX WOUND CARE; Start 05/14/18 at 23:00 Acetaminophen (Tylenol Liquid) 650 mg Q6 PRN PO MILD PAIN(1-3)OR ELEVATED TEMP Last administered on 05/16/18at 21:13; Admin Dose 650 MG; Start 05/15/18 at 07:00 Albuterol (Ventolin Hfa) 4 puff Q6H RESP THERAPY INH Last administered on 05/23/18 07:48; Admin Dose 4 PUFF; Start 05/15/18 at 14:00 Ipratropium [place] (Atrovent Hfa) 4 puff Q6H RESP THERAPY INH Last administered on 05/23/18 07:48; Admin Dose 4 PUFF; Start 05/15/18 at 14:00 Collagenase (Santyl) 1 applic DAILY TOP Last administered on 05/23/18at 09:00; Admin Dose 1 APPLIC; Start 05/15/18 at 13:00 Meropenem/Sodium Chloride 50 ml @ 100 mls/hr Q12 IVPB Last administered on 05/23/18 10:21; Admin Dose 100 MLS/HR; Start 05/15/18 at 16:00 Multivit/Ca Carb/ B Cmplx/FA/Prenat ([place]ilib[place]-L[place]) 1 tab DAILY GTB Last administered on 05/23/18 10:20; Admin Dose 1 TAB; Start 05/16/18 at 09:00 Zinc Sulfate (Zinc Sulfate) 220 mg DAILY GTB Last administered on 05/23/18 10:20; Admin Dose 220 MG; Start 05/16/18 at 09:00 Ascorbic Acid (Vitamin C) 250 mg DAILY GTB Last administered on 05/23/18 10: 20; Admin Dose 250 MG; Start 05/16/18 at 09:00 Chlorhexidine Gluconate (Peridex) 15 ml Q12 MM Last administered on 05/23/18 10:19; Admin Dose 15 ML; Start 05/15/18 at 16:30 Levetiracetam (Keppra Liquid) 500 mg Q12 GTB Last administered on 05/23/18 10:19; Admin Dose 500 MG; Start 05/15/18 at 16:30 Quetiapine Fumarate (Seroquel) 50 mg BID GTB Last administered on 05/23/18 10:20; Admin Dose 50 MG; Start 05/15/18 at 21:00 IV Flush (NS 10 ml) 10 ml PRN PRN IV IV PROTOCOL; Start 05/15/18 at 18:30 Docusate Sodium (Colace Liquid Cup) 100 mg BID GTB Last administered on 05/23/18 10:19; Admin Dose 100 MG; Start 05/15/18 at 21:00 AISSATOU DUNCAN May 23, 2018 13:34
--- NOTE | 2018-05-23 14:04 | CONS ---
Assessment/Plan Assessment/Plan Hospital Course (Demo Recall) No acute events per report, no fevers Microbiology: Urine culture grew Proteus mirabilis, sputum culture growing further dentia, blood culture grew staph sp. 1 out of 2 sets Indwelling: Trach, PEG, PICC line, suprapubic catheter Allergies: Tetracycline Antimicrobials: Meropenem Physical examination: Chronically ill-appearing middle-aged man who is in no distress. Head atraumatic normocephalic neck is supple chest rise symmetrical breath sounds diminished bases. Heart: S1-S2. Abdomen soft bowel sounds present. Extremities wasted without cyanosis Assessment: 1. S/p severe sepsis with shock 2. Bacteremia, cw contaminant 2. S/p healthcare associated pneumonia 3. Urinary tract infection 4. Chronic respiratory failure and dysphagia 5. Acute on chronic kidney disease 6. Neurogenic bladder status post suprapubic catheter placement 7. Incomplete quadriplegia 8. History of nephrectomy 9. History of scabies 10. Multiple chronic wounds Plan: Remains stable, will dc abx and observe Consultation Date/Type/Reason Admit Date/Time May 14, 2018 at 18:34 Initial Consult Date 05/15/18 Type of Consult id Requesting Provider: JOSÉ ANTONIO MIRZA MD Date/Time of Note DATE: 05/23/18 TIME: 14:02 Exam/Review of Systems Exam Vitals Vital Signs Date Temp Pulse Resp B/P (MAP) Pulse Ox O2 O2 Flow FiO2 Time Delivery Rate 05/23/18 102 23 98 30 13:36 05/23/18 98.2 156/102 Trach 11:14 (120) Collar Intake and Output 05/22/18 05/22/18 05/23/18 1515:00 23:00 07:00 IntakeIntake Total 1795 ml OutputOutput Total 1850 ml BalanceBalance -55 ml Results Result Diagram: 05/23/18 0614 05/23/1814 Results 24hrs Laboratory Tests Test 05/22/18 14:42 05/23/18 06:14 White Blood Count 4.2 L 3.2 #L Red Blood Count 2.60 L 2.72 L Hemoglobin 7.4 L 7.7 L Hematocrit 24.9 L 25.8 L Mean Corpuscular Volume 95.8 94.9 Mean Corpuscular Hemoglobin 28.5 L 28.3 L Mean Corpuscular Hemoglobin Concent 29.7 L 29.8 L Red Cell Distribution Width 15.5 H 15.6 H Platelet Count 129 L 150 Mean Platelet Volume 12.5 H 11.8 H Immature Granulocytes % 0.500 H 0.300 Neutrophils % 81.0 H 72.8 Lymphocytes % 8.8 L 13.3 L Monocytes % 6.4 9.5 Eosinophils % 3.1 3.8 Basophils % 0.2 0.3 Nucleated Red Blood Cells % 0.0 0.0 Immature Granulocytes # 0.020 0.010 Neutrophils # 3.4 2.3 Lymphocytes # 0.4 L 0.4 L Monocytes # 0.3 0.3 Eosinophils # 0.1 0.1 Basophils # 0.0 0.0 Nucleated Red Blood Cells # 0.0 0.0 Sodium Level 140 143 Potassium Level 5.3 H 5.9 H Chloride Level 112 H 112 H Carbon Dioxide Level 20 L 22 Anion Gap 8 9 Blood Urea Nitrogen 43 H 46 H Creatinine 1.26 H 1.26 H Est Glomerular Filtrat Rate mL/min > 60 > 60 Glucose Level 236 #H 106 # Calcium Level 8.6 9.0 Medications Medication Current Medications IV Flush (NS 3 ml) 3 ml PER PROTOCOL IV ; Start 05/14/18 at 18:30 Lorazepam (Ativan) 0.5 mg Q6H PRN IV .ANXIETY Last administered on 05/20/18at 22:26; Admin Dose 0.5 MG; Start 05/14/18 at 18:30 Ondansetron HCl (Zofran Inj) 4 mg Q6H PRN IV NAUSEA/VOMITING; Start 05/14/18 at 18:30 Acetaminophen/ Hydrocodone Bitart ([place] (5/325)) 1 tab Q6H PRN PO .PAIN 4-6; Start 05/14/18 at 18:30 Acetaminophen/ Hydrocodone Bitart ([place] (5/325)) 2 tab Q6H PRN PO .PAIN 7-10 Last administered on 05/21/18at 21:05; Admin Dose 2 TAB; Start 05/14/18 at 18:30 Hydromorphone HCl (Dilaudid) 0.5 mg Q4H PRN IV .PAIN 7-10 Last administered on 05/23/18at 11:17; Admin Dose 0.5 MG; Start 05/14/18 at 18:30 Docusate Sodium (Colace) 100 mg Q12H PRN PO .CONSTIPATION; Start 05/14/18 at 18:30 Magnesium Hydroxide (Milk Of Mag) 30 ml DAILY PRN PO .CONSTIPATION; Start 05/14/18 at 18:30 Famotidine (Pepcid) 20 mg DAILY PO Last administered on 05/23/18 10:20; Admin Dose 20 MG; Start 05/14/18 at 21:00 Enoxaparin Sodium (Lovenox) 30 mg DAILY SC Last administered on 05/23/18 10:37; Admin Dose 30 MG; Start 05/15/18 at 09:00 Miscellaneous Information (Pending Santyl Order For Wound Care) This patient noriega... PRN PRN XX WOUND CARE; Start 05/14/18 at 23:00 Acetaminophen (Tylenol Liquid) 650 mg Q6 PRN PO MILD PAIN(1-3)OR ELEVATED TEMP Last administered on 05/16/18 21:13; Admin Dose 650 MG; Start 05/15/18 at 07:00 Albuterol (Ventolin Hfa) 4 puff Q6H RESP THERAPY INH Last administered on 05/23/18 13:38; Admin Dose 4 PUFF; Start 05/15/18 at 14:00 Ipratropium [place] (Atrovent Hfa) 4 puff Q6H RESP THERAPY INH Last administered on 05/23/18 13:38; Admin Dose 4 PUFF; Start 05/15/18 at 14:00 Collagenase (Santyl) 1 applic DAILY TOP Last administered on 05/23/18 09:00; Admin Dose 1 APPLIC; Start 05/15/18 at 13:00 Meropenem/Sodium Chloride 50 ml @ 100 mls/hr Q12 IVPB Last administered on 05/23/18 10:21; Admin Dose 100 MLS/HR; Start 05/15/18 at 16:00 Multivit/Ca Carb/ B Cmplx/FA/Prenat ([place]) 1 tab DAILY GTB Last administered on 05/23/18 10:20; Admin Dose 1 TAB; Start 05/16/18 at 09:00 Zinc Sulfate (Zinc Sulfate) 220 mg DAILY GTB Last administered on 05/23/18 10:20; Admin Dose 220 MG; Start 05/16/18 at 09:00 Ascorbic Acid (Vitamin C) 250 mg DAILY GTB Last administered on 05/23/18 10:20; Admin Dose 250 MG; Start 05/16/18 at 09:00 Chlorhexidine Gluconate (Peridex) 15 ml Q12 MM Last administered on 05/23/18 10:19; Admin Dose 15 ML; Start 05/15/18 at 16:30 Levetiracetam (Keppra Liquid) 500 mg Q12 GTB Last administered on 05/23/18 10:19; Admin Dose 500 MG; Start 05/15/18 at 16:30 Quetiapine Fumarate (Seroquel) 50 mg BID GTB Last administered on 05/23/18 10:20; Admin Dose 50 MG; Start 05/15/18 at 21:00 IV Flush (NS 10 ml) 10 ml PRN PRN IV IV PROTOCOL; Start 05/15/18 at 18:30 Docusate Sodium (Colace Liquid Cup) 100 mg BID GTB Last administered on 05/23/18 10:19; Admin Dose 100 MG; Start 05/15/18 at 21:00 REGINALDO CHERY NP May 23, 2018 14:04
[2018-05-23] MEDS: HYDROCODONE/APAP (5/325) TAB PO PRN (20:57)
[2018-05-24] VITALS (23 sets, daily range): BP systolic 115–155; BP diastolic 69–98; PULSE 71–131; RESP 20–34
[2018-05-24] MEDS: IPRATROPIUM (HFA) 12.9 GM INHALER INH SCH ×4 (01:23→19:21)
[2018-05-24] MEDS: ALBUTEROL HFA 8 GM INHALER INH SCH ×4 (01:23→19:21)
[2018-05-24] MEDS: HYDROmorphONE 0.5 MG/0.5 ML SYG IV PRN ×4 (03:50→22:23)
[2018-05-24] MEDS: MULTIVIT/CA CARB/B CMPLX/FA TAB GTB SCH (08:08)
[2018-05-24] MEDS: ZINC SULFATE 220 MG CAP GTB SCH (08:08)
[2018-05-24] MEDS: FAMOTIDINE 20 MG TAB PO SCH (08:08)
[2018-05-24] MEDS: QUETIAPINE 25 MG TAB GTB SCH ×2 (08:08→22:24)
[2018-05-24] MEDS: LEVETIRACETAM (100 MG/ML) 5ML CUP GTB SCH ×2 (08:08→22:23)
[2018-05-24] MEDS: DOCUSATE SODIUM 10 MG/ML (10ML CUP) GTB SCH ×2 (08:08→22:23)
[2018-05-24] MEDS: ASCORBIC ACID 250 MG TAB GTB SCH (08:08)
[2018-05-24] MEDS: CHLORHEXIDINE GLUCONATE 15 ML UD CUP MM SCH ×2 (08:09→22:24)
[2018-05-24] MEDS: COLLAGENASE 5 GM (UD JAR) TOP SCH (08:09)
[2018-05-24] MEDS: BALSAM PERU/CASTOR OIL 60 GM TUBE TOP SCH ×2 (08:10→21:00)
[2018-05-24] MEDS: ENOXAPARIN 30 MG/0.3 ML SYG SC SCH (08:11)
[2018-05-24] MEDS: HYDROCODONE/APAP (5/325) TAB PO PRN (08:15)
--- NOTE | 2018-05-24 09:59 | PN ---
DATE: 05/24/2018 SUBJECTIVE: The patient is in room 630 today. He is on long-term ventilator support, he is fully aw sarthak, alert and responsive and trying to talk. His breathing appears comfortable without any apparent respiratory distress. OBJECTIVE: VITAL SIGNS: Stable. Temperature 98 without any fever spikes. Blood pressure is 155/98, pulse rate is 83, respirations 20, pulse oximetry 99% saturation. NECK: Tracheal secretions are clear. No bleeding or obstruction seen. HEART: Regular rhythm. CHEST: Breath sounds are heard, diminished in the lower lung tierney with a few occasional rales and rhonchi. ABDOMEN: Soft, tolerating gastrostomy tube feedings. Normal bowel sounds. No distention is seen. EXTREMITIES: Show no edema. He is paraplegic. LABORATORY DATA: No lab results are available. IMPRESSION: 1. Sepsis, resolving. 2. Healthcare-acquired pneumonia, improving. 3. Chronic ventilator dependent respiratory failure. 4. Acute on chronic renal failure, improving. 5. History of nephrolithiasis. 6. History of neurogenic bladder. 7. History of paraplegia secondary to spinal cord injury. 8. History of bipolar disorder, psychosis. 9. Status post tracheostomy. 10. Status post gastrostomy. 11. Status post suprapubic cystostomy. RECOMMENDATIONS: 1. Continue long-term ventilator support. It is unlikely that the patient will be able to come out the ventilator. He has been weaned off the ventilator several times, will need to be proved on few t idal, within a few days back in the correction he will end up on the ventilator support. For this reason, continue long-term ventilator support uninterrupted. 2. Complete antibiotics course as recommended by the infectious disease technical assistance consultant. 3. Continue bronchodilator inhalation therapy nursing home to clear the secretions and maintain bronchi al hygiene. 4. Continue gastrostomy tube feedings. 5. Continue deep vein thrombosis prophylaxis. 6. Continue gastrointestinal prophylaxis. Overall, pulmonary status seems to be stable, seems to have reached a plateau. It would be unrealist ic to expect him to come off the ventilator easily and maintain a stable respiratory status. For thi s reason, ventilator support to be continued long-term indefinitely. However, the patient would have a swallow evaluation and if he is found to safe when swallowing, oral feedings will be given at [facility] for oral gratification. We will follow as needed on request. Dictated By: HUMBERTO PEREZ MD SR/NTS Conf#: [id number] DID#: [id number] CC: JOSÉ ANTONIO MIRZA MD;*EndCC*
--- NOTE | 2018-05-24 12:15 | CONS ---
Assessment/Plan Assessment/Plan Hospital Course (Demo Recall) No acute changes, looks comfortable Microbiology: Urine culture grew Proteus mirabilis, sputum culture growing further dentia, blood culture grew staph sp. 1 out of 2 sets Indwelling: Trach, PEG, PICC line, suprapubic catheter Allergies: Tetracycline Antimicrobials: completed Physical examination: Chronically ill-appearing middle-aged man who is in no distress. Head atraumatic normocephalic neck is supple chest rise symmetrical breath sounds diminished bases. Heart: S1-S2. Abdomen soft bowel sounds present. Extremities wasted without cyanosis Assessment: 1. S/p severe sepsis with shock 2. Bacteremia, cw contaminant 2. S/p healthcare associated pneumonia 3. Urinary tract infection 4. Chronic respiratory failure and dysphagia 5. Acute on chronic kidney disease 6. Neurogenic bladder status post suprapubic catheter placement 7. Incomplete quadriplegia 8. History of nephrectomy 9. History of scabies 10. Multiple chronic wounds Plan: Remains stable, off abx Consultation Date/Type/Reason Admit Date/Time May 14, 2018 at 18:34 Initial Consult Date 05/15/18 Type of Consult id Requesting Provider: JOSÉ ANTONIO MIRZA MD Date/Time of Note DATE: 05/24/18 TIME: 12:13 Exam/Review of Systems Exam Vitals Vital Signs Date Temp Pulse Resp B/P (MAP) Pulse Ox O2 O2 Flow FiO2 Time Delivery Rate 05/24/18 98.0 90 20 123/85 100 10:59 (98) 05/24/18 30 09:54 05/23/18 Mechanical 20:00 Ventilator Intake and Output 05/23/18 05/23/18 05/24/18 1515:00 23:00 07:00 IntakeIntake Total 1050 ml 790 ml 790 ml OutputOutput Total 800 ml 1200 ml BalanceBalance 1050 ml -10 ml -410 ml Results Result Diagram: 05/24/18 1009 05/24/18 1009 Results 24hrs Laboratory Tests Test 05/23/18 15:57 05/24/18 10:09 Sodium Level 144 143 Potassium Level 5.5 H 5.3 H Chloride Level 114 H 115 H Carbon Dioxide Level 22 21 Anion Gap 8 7 Blood Urea Nitrogen 46 H 44 H Creatinine 1.26 H 1.32 H Est Glomerular Filtrat Rate mL/min > 60 60 Glucose Level 97 113 Calcium Level 9.3 9.2 White Blood Count 2.8 L Red Blood Count 2.54 L Hemoglobin 7.3 L Hematocrit 24.2 L Mean Corpuscular Volume 95.3 Mean Corpuscular Hemoglobin 28.7 L Mean Corpuscular Hemoglobin Concent 30.2 L Red Cell Distribution Width 15.4 H Platelet Count 140 Mean Platelet Volume 11.9 H Immature Granulocytes % 0.400 Neutrophils % 69.1 Lymphocytes % 17.8 Monocytes % 8.3 Eosinophils % 4.0 Basophils % 0.4 Nucleated Red Blood Cells % 0.0 Immature Granulocytes # 0.010 Neutrophils # 1.9 Lymphocytes # 0.5 L Monocytes # 0.2 L Eosinophils # 0.1 Basophils # 0.0 Nucleated Red Blood Cells # 0.0 Medications Medication Current Medications IV Flush (NS 3 ml) 3 ml PER PROTOCOL IV ; Start 05/14/18 at 18:30 Lorazepam (Ativan) 0.5 mg Q6H PRN IV .ANXIETY Last administered on 05/20/18at 22:26; Admin Dose 0.5 MG; Start 05/14/18 at 18:30 Ondansetron HCl (Zofran Inj) 4 mg Q6H PRN IV NAUSEA/VOMITING; Start 05/14/18 at 18:30 Acetaminophen/ Hydrocodone Bitart ([place] (5/325)) 1 tab Q6H PRN PO .PAIN 4-6; Start 05/14/18 at 18:30 Acetaminophen/ Hydrocodone Bitart ([place] (5/325)) 2 tab Q6H PRN PO .PAIN 7-10 Last administered on 05/24/18at 08:15; Admin Dose 2 TAB; Start 05/14/18 at 18:30 Hydromorphone HCl (Dilaudid) 0.5 mg Q4H PRN IV .PAIN 7-10 Last administered on 05/24/18at 11:19; Admin Dose 0.5 MG; Start 05/14/18 at 18:30 Docusate Sodium (Colace) 100 mg Q12H PRN PO .CONSTIPATION; Start 05/14/18 at 18:30 Magnesium Hydroxide (Milk Of Mag) 30 ml DAILY PRN PO .CONSTIPATION; Start 05/14/18 at 18:30 Famotidine (Pepcid) 20 mg DAILY PO Last administered on 05/24/18at 08:08; Admin Dose 20 MG; Start 05/14/18 at 21:00 Enoxaparin Sodium (Lovenox) 30 mg DAILY SC Last administered on 05/24/18 08:11; Admin Dose 30 MG; Start 05/15/18 at 09:00 Miscellaneous Information (Pending Santyl Order For Wound Care) This patient noriega... PRN PRN XX WOUND CARE; Start 05/14/18 at 23:00 Acetaminophen (Tylenol Liquid) 650 mg Q6 PRN PO MILD PAIN(1-3)OR ELEVATED TEMP Last administered on 05/16/18 21:13; Admin Dose 650 MG; Start 05/15/18 at 07:00 Albuterol (Ventolin Hfa) 4 puff Q6H RESP THERAPY INH Last administered on 05/24/18 08:16; Admin Dose 4 PUFF; Start 05/15/18 at 14:00 Ipratropium [place] (Atrovent Hfa) 4 puff Q6H RESP THERAPY INH Last administered on 05/24/18 08:16; Admin Dose 4 PUFF; Start 05/15/18 at 14:00 Collagenase (Santyl) 1 applic DAILY TOP Last administered on 05/24/18 08:09; Admin Dose 1 APPLIC; Start 05/15/18 at 13:00 Multivit/Ca Carb/ B Cmplx/FA/Prenat ([place]) 1 tab DAILY GTB Last administered on 05/24/18 08:08; Admin Dose 1 TAB; Start 05/16/18 at 09:00 Zinc Sulfate (Zinc Sulfate) 220 mg DAILY GTB Last administered on 05/24/18 08:08; Admin Dose 220 MG; Start 05/16/18 at 09:00 Ascorbic Acid (Vitamin C) 250 mg DAILY GTB Last administered on 05/24/18 08:08; Admin Dose 250 MG; Start 05/16/18 at 09:00 Chlorhexidine Gluconate (Peridex) 15 ml Q12 MM Last administered on 05/24/18 08:09; Admin Dose 15 ML; Start 05/15/18 at 16:30 Levetiracetam (Keppra Liquid) 500 mg Q12 GTB Last administered on 05/24/18 08:08; Admin Dose 500 MG; Start 05/15/18 at 16:30 Quetiapine Fumarate (Seroquel) 50 mg BID GTB Last administered on 05/24/18at 08:08; Admin Dose 50 MG; Start 05/15/18 at 21:00 IV Flush (NS 10 ml) 10 ml PRN PRN IV IV PROTOCOL; Start 05/15/18 at 18:30 Docusate Sodium (Colace Liquid Cup) 100 mg BID GTB Last administered on 05/24/18at 08:08; Admin Dose 100 MG; Start 05/15/18 at 21:00 REGINALDO CHERY [employer] SAL[employer] REPRESENTATIVE May 24, 2018 12:15
--- NOTE | 2018-05-24 12:41 | CONS ---
Assessment/Plan Assessment/Plan Assessment/Plan (Daily) - Hyperkalemia- K 5.3- Kayexalate x 1; am BMP 1. Acute on chronic renal failure 2. Hypernatremia 3. UTI 4. history of paraplegia secondary to cervical spine injury, ventilator dependent respiratory failure with striking ostomy, dysphagia with G-tube, neurogenic bladder with suprapubic catheter, right nephrectomy, left renal renal nephrolithiasis with history of lithotripsy and stent placement and urethral stent removal, history of bipolar disorder Plan: BUN/Cr improved to 44/1.32, K 5, 3; HCo3 -21, na 143, SP D5W at 75 cc/hr x 3 liter then stop IV abx meropenem as per ID, Renally dose all abx and monitor electrolytes and replace as needed will follow up Patient seen in collaboration with Dr Barker. Dw staff Consultation Date/Type/Reason Admit Date/Time May 14, 2018 at 6:34 pm Initial Consult Date 05/15/18 Type of Consult NEPHROLOGY Requesting Provider: JOSÉ ANTONIO MIRZA MD Date/Time of Note DATE: 05/24/18 TIME: 12:39 24 HR Interval Summary Free Text/Dictation nad afebrile K 5.3; Kayexalate x i; AM BMP - UO 2L/24 hrs no new issues reported last night Subjective hx not possible: pt non-verbal Constitutional: requiring O2 Detailed Summary Eyes: no complaints ENT: no complaints Respiratory: no complaints Cardiovascular: no complaints Gastrointestinal: no complaints Genitourinary: no complaints Musculoskeletal: restricted range of motion Skin: other (wounds) Neurologic: no complaints Lymphatic: no complaints Immunologic: no complaints Exam/Review of Systems Exam Vitals Vital Signs Date Temp Pulse Resp B/P (MAP) Pulse Ox O2 O2 Flow FiO2 Time Delivery Rate 05/24/18 98.0 90 20 123/85 100 10:59 (98) 05/24/18 30 09:54 05/23/18 Mechanical 20:00 Ventilator Intake and Output 05/23/18 05/23/18 05/24/18 1515:00 23:00 07:00 IntakeIntake Total 1050 ml 790 ml 790 ml OutputOutput Total 800 ml 1200 ml BalanceBalance 1050 ml -10 ml -410 ml Constitutional: alert, well developed, non-verbal Psych: nl mood/affect Head: atraumatic Eyes: nl lids, nl sclera ENMT: nl external ears & nose Neck: non-tender, other (trach intact) Respiratory: diminished breath sounds (at bases bilaterally) Cardiovascular: nl pulses, other (s1s2) Gastrointestinal: soft, non-tender, other (gt intact) Genitourinary - Male: other (suprapubic cath noted.) Musculoskeletal: muscle weakness, range of motion, other (CONTRACTURES) Extremities: normal pulses Neurological: confused, other (Paraplegic) Skin: other (multiple wounds) Lymph: nontender Results Result Diagram: 05/24/18 1009 05/24/18 1009 Results 24hrs Laboratory Tests Test 05/23/18 15:57 05/24/18 10:09 Sodium Level 144 143 Potassium Level 5.5 H 5.3 H Chloride Level 114 H 115 H Carbon Dioxide Level 22 21 Anion Gap 8 7 Blood Urea Nitrogen 46 H 44 H Creatinine 1.26 H 1.32 H Est Glomerular Filtrat Rate mL/min > 60 60 Glucose Level 97 113 Calcium Level 9.3 9.2 White Blood Count 2.8 L Red Blood Count 2.54 L Hemoglobin 7.3 L Hematocrit 24.2 L Mean Corpuscular Volume 95.3 Mean Corpuscular Hemoglobin 28.7 L Mean Corpuscular Hemoglobin Concent 30.2 L Red Cell Distribution Width 15.4 H Platelet Count 140 Mean Platelet Volume 11.9 H Immature Granulocytes % 0.400 Neutrophils % 69.1 Lymphocytes % 17.8 Monocytes % 8.3 Eosinophils % 4.0 Basophils % 0.4 Nucleated Red Blood Cells % 0.0 Immature Granulocytes # 0.010 Neutrophils # 1.9 Lymphocytes # 0.5 L Monocytes # 0.2 L Eosinophils # 0.1 Basophils # 0.0 Nucleated Red Blood Cells # 0.0 Medications Medication Current Medications IV Flush (NS 3 ml) 3 ml PER PROTOCOL IV ; Start 05/14/18 at 18:30 Lorazepam (Ativan) 0.5 mg Q6H PRN IV .ANXIETY Last administered on 05/20/18at 22:26; Admin Dose 0.5 MG; Start 05/14/18 at 18:30 Ondansetron HCl (Zofran Inj) 4 mg Q6H PRN IV NAUSEA/VOMITING; Start 05/14/18 at 18:30 Acetaminophen/ Hydrocodone Bitart ([place] (5/325)) 1 tab Q6H PRN PO .PAIN 4-6; Start 05/14/18 at 18:30 Acetaminophen/ Hydrocodone Bitart ([place] (5/325)) 2 tab Q6H PRN PO .PAIN 7-10 Last administered on 05/24/18 08:15; Admin Dose 2 TAB; Start 05/14/18 at 18:30 Hydromorphone HCl (Dilaudid) 0.5 mg Q4H PRN IV .PAIN 7-10 Last administered on 05/24/18 11:19; Admin Dose 0.5 MG; Start 05/14/18 at 18:30 Docusate Sodium (Colace) 100 mg Q12H PRN PO .CONSTIPATION; Start 05/14/18 at 18:30 Magnesium Hydroxide (Milk Of Mag) 30 ml DAILY PRN PO .CONSTIPATION; Start 05/14/18 at 18:30 Famotidine (Pepcid) 20 mg DAILY PO Last administered on 05/24/18 08:08; Admin Dose 20 MG; Start 05/14/18 at 21:00 Enoxaparin Sodium (Lovenox) 30 mg DAILY SC Last administered on 05/24/18 08:11; Admin Dose 30 MG; Start 05/15/18 at 09:00 Miscellaneous Information (Pending Santyl Order For Wound Care) This patient noriega... PRN PRN XX WOUND CARE; Start 05/14/18 at 23:00 Acetaminophen (Tylenol Liquid) 650 mg Q6 PRN PO MILD PAIN(1-3)OR ELEVATED TEMP Last administered on 05/16/18 21:13; Admin Dose 650 MG; Start 05/15/18 at 07:00 Albuterol (Ventolin Hfa) 4 puff Q6H RESP THERAPY INH Last administered on 05/24/18 08:16; Admin Dose 4 PUFF; Start 05/15/18 at 14:00 Ipratropium [place] (Atrovent Hfa) 4 puff Q6H RESP THERAPY INH Last administered on 05/24/18 08:16; Admin Dose 4 PUFF; Start 05/15/18 at 14:00 Collagenase (Santyl) 1 applic DAILY TOP Last administered on 05/24/18 08:09; Admin Dose 1 APPLIC; Start 05/15/18 at 13:00 Multivit/Ca Carb/ B Cmplx/FA/Prenat ([place]ilibeth-Linn) 1 tab DAILY GTB Last administered on 05/24/18 08:08; Admin Dose 1 TAB; Start 05/16/18 at 09:00 Zinc Sulfate (Zinc Sulfate) 220 mg DAILY GTB Last administered on 05/24/18 08:08; Admin Dose 220 MG; Start 05/16/18 at 09:00 Ascorbic Acid (Vitamin C) 250 mg DAILY GTB Last administered on 05/24/18 08:08; Admin Dose 250 MG; Start 05/16/18 at 09:00 Chlorhexidine Gluconate (Peridex) 15 ml Q12 MM Last administered on 05/24/18 08:09; Admin Dose 15 ML; Start 05/15/18 at 16:30 Levetiracetam (Keppra Liquid) 500 mg Q12 GTB Last administered on 05/24/18 08:08; Admin Dose 500 MG; Start 05/15/18 at 16:30 Quetiapine Fumarate (Seroquel) 50 mg BID GTB Last administered on 05/24/18 08:08; Admin Dose 50 MG; Start 05/15/18 at 21:00 IV Flush (NS 10 ml) 10 ml PRN PRN IV IV PROTOCOL; Start 05/15/18 at 18:30 Docusate Sodium (Colace Liquid Cup) 100 mg BID GTB Last administered on 05/24/18 08:08; Admin Dose 100 MG; Start 05/15/18 at 21:00 NAE VELAZCO May 24, 2018 12:41
[2018-05-24] MEDS ORDERED: ALTEPLASE (CATHFLO) 2 MG INJ CATHETER ONE (13:00)
[2018-05-24] MEDS ORDERED: NA POLYST SULFON 15 GM/60 ML BTL GTB ONE (13:00)
--- NOTE | 2018-05-24 14:54 | PN ---
Date/Time of Note Date/Time of Note DATE: 05/24/18 TIME: 14:53 Assessment/Plan VTE Prophylaxis Risk score (from Ns)>0 risk: 3 SCD applied (from Ns): Yes SCD contraindicated: bilateral LE trauma Pharmacological prophylaxis: LMWH Lines/Catheters IV Catheter Type (from [facility]): PICC Line Central line still needed: Yes Reason Cath still needed: urinary retention, other (indicate) Assessment/Plan Hospital Course Pt continues on vent without distress, s/p Kayaxelate for hyperkalemia. Assessment/Plan - S/p sepsis secondary to pneumonia, continues on meropenem. Dr. Maciel is following in infection disease consultation. - Health care associated pneumonia - Proteus M UTI - Acute on chronic renal failure, continue IV fluids. Continue to monitor BUN and creatinine. Dr. Barker is following patient in nephrology consultation. - Ventilator dependent respiratory failure, continue pulmonary toilet and bronchodilators. Dr Ames is following in pulmonology consultation. - Neurogenic bladder with suprapubic catheter. - Left renal nephrolithiasis, hx of lithotripsy with insertion and subsequent removal of ureteral JJ stent. - Hx of right nephrectomy - Dysphagia with gastrostomy tube. - Multiple decubitus ulcers present on admission. Continue current care per wound consult recommendations, offloading air mattress, optimize nutrition. - Cervical spine injury with paraplegia. - Bipolar disorder with psychosis. Further recommendations based on clinical course. Plan of care discussed with Dr. Barreto. Result Diagram: 05/24/18 1009 05/24/18 1009 Results 24hrs Laboratory Tests Test 05/23/18 15:57 05/24/18 10:09 Sodium Level 144 143 Potassium Level 5.5 H 5.3 H Chloride Level 114 H 115 H Carbon Dioxide Level 22 21 Anion Gap 8 7 Blood Urea Nitrogen 46 H 44 H Creatinine 1.26 H 1.32 H Est Glomerular Filtrat Rate mL/min > 60 60 Glucose Level 97 113 Calcium Level 9.3 9.2 White Blood Count 2.8 L Red Blood Count 2.54 L Hemoglobin 7.3 L Hematocrit 24.2 L Mean Corpuscular Volume 95.3 Mean Corpuscular Hemoglobin 28.7 L Mean Corpuscular Hemoglobin Concent 30.2 L Red Cell Distribution Width 15.4 H Platelet Count 140 Mean Platelet Volume 11.9 H Immature Granulocytes % 0.400 Neutrophils % 69.1 Lymphocytes % 17.8 Monocytes % 8.3 Eosinophils % 4.0 Basophils % 0.4 Nucleated Red Blood Cells % 0.0 Immature Granulocytes # 0.010 Neutrophils # 1.9 Lymphocytes # 0.5 L Monocytes # 0.2 L Eosinophils # 0.1 Basophils # 0.0 Nucleated Red Blood Cells # 0.0 Exam/Review of Systems Exam Vitals Vital Signs Date Temp Pulse Resp B/P (MAP) Pulse Ox O2 O2 Flow FiO2 Time Delivery Rate 05/24/18 112 26 98 30 13:15 05/24/18 98.0 123/85 10:59 (98) 05/23/18 Mechanical 20:00 Ventilator Intake and Output 05/23/18 05/23/18 05/24/18 1515:00 23:00 07:00 IntakeIntake Total 1050 ml 790 ml 790 ml OutputOutput Total 800 ml 1200 ml BalanceBalance 1050 ml -10 ml -410 ml Exam Constitutional: alert, awake Neck: supple, other (Tracheostomy) Respiratory: diminished breath sounds, other (Scattered Rhonchi) Cardiovascular: regular rate and rhythm Gastrointestinal: soft, non-tender, other (G-tube) Genitourinary - Male: other (Suprapubic catheter) Extremities: normal pulses, other (Contracted) Neurological: other (Paraplegia) Skin: other (Multiple wounds) Results Results 24hrs Laboratory Tests Test 05/23/18 15:57 05/24/18 10:09 Sodium Level 144 143 Potassium Level 5.5 H 5.3 H Chloride Level 114 H 115 H Carbon Dioxide Level 22 21 Anion Gap 8 7 Blood Urea Nitrogen 46 H 44 H Creatinine 1.26 H 1.32 H Est Glomerular Filtrat Rate mL/min > 60 60 Glucose Level 97 113 Calcium Level 9.3 9.2 White Blood Count 2.8 L Red Blood Count 2.54 L Hemoglobin 7.3 L Hematocrit 24.2 L Mean Corpuscular Volume 95.3 Mean Corpuscular Hemoglobin 28.7 L Mean Corpuscular Hemoglobin Concent 30.2 L Red Cell Distribution Width 15.4 H Platelet Count 140 Mean Platelet Volume 11.9 H Immature Granulocytes % 0.400 Neutrophils % 69.1 Lymphocytes % 17.8 Monocytes % 8.3 Eosinophils % 4.0 Basophils % 0.4 Nucleated Red Blood Cells % 0.0 Immature Granulocytes # 0.010 Neutrophils # 1.9 Lymphocytes # 0.5 L Monocytes # 0.2 L Eosinophils # 0.1 Basophils # 0.0 Nucleated Red Blood Cells # 0.0 Medications Medication Current Medications IV Flush (NS 3 ml) 3 ml PER PROTOCOL IV ; Start 05/14/18 at 18:30 Lorazepam (Ativan) 0.5 mg Q6H PRN IV .ANXIETY Last administered on 05/20/18at 22:26; Admin Dose 0.5 MG; Start 05/14/18 at 18:30 Ondansetron HCl (Zofran Inj) 4 mg Q6H PRN IV NAUSEA/VOMITING; Start 05/14/18 at 18:30 Acetaminophen/ Hydrocodone Bitart ([place] (5/325)) 1 tab Q6H PRN PO .PAIN 4-6; Start 05/14/18 at 18:30 Acetaminophen/ Hydrocodone Bitart ([place] (5/325)) 2 tab Q6H PRN PO .PAIN 7-10 Last administered on 05/24/18at 08:15; Admin Dose 2 TAB; Start 05/14/18 at 18:30 Hydromorphone HCl (Dilaudid) 0.5 mg Q4H PRN IV .PAIN 7-10 Last administered on 05/24/18at 11:19; Admin Dose 0.5 MG; Start 05/14/18 at 18:30 Docusate Sodium (Colace) 100 mg Q12H PRN PO .CONSTIPATION; Start 05/14/18 at 18:30 Magnesium Hydroxide (Milk Of Mag) 30 ml DAILY PRN PO .CONSTIPATION; Start 05/14/18 at 18:30 Famotidine (Pepcid) 20 mg DAILY PO Last administered on 05/24/18at 08:08; Admin Dose 20 MG; Start 05/14/18 at 21:00 Enoxaparin Sodium (Lovenox) 30 mg DAILY SC Last administered on 05/24/18at 08:11; Admin Dose 30 MG; Start 05/15/18 at 09:00 Miscellaneous Information (Pending Santyl Order For Wound Care) This patient noriega... PRN PRN XX WOUND CARE; Start 05/14/18 at 23:00 Acetaminophen (Tylenol Liquid) 650 mg Q6 PRN PO MILD PAIN(1-3)OR ELEVATED TEMP Last administered on 05/16/18 21:13; Admin Dose 650 MG; Start 05/15/18 at 07:00 Albuterol (Ventolin Hfa) 4 puff Q6H RESP THERAPY INH Last administered on 05/24/18 13:18; Admin Dose 4 PUFF; Start 05/15/18 at 14:00 Ipratropium [place] (Atrovent Hfa) 4 puff Q6H RESP THERAPY INH Last administered on 05/24/18 13:18; Admin Dose 4 PUFF; Start 05/15/18 at 14:00 Collagenase (Santyl) 1 applic DAILY TOP Last administered on 05/24/18 08:09; Admin Dose 1 APPLIC; Start 05/15/18 at 13:00 Multivit/Ca Carb/ B Cmplx/FA/Prenat ([place]) 1 tab DAILY GTB Last administered on 05/24/18 08:08; Admin Dose 1 TAB; Start 05/16/18 at 09:00 Zinc Sulfate (Zinc Sulfate) 220 mg DAILY GTB Last administered on 05/24/18 08:08; Admin Dose 220 MG; Start 05/16/18 at 09:00 Ascorbic Acid (Vitamin C) 250 mg DAILY GTB Last administered on 05/24/18 08: 08; Admin Dose 250 MG; Start 05/16/18 at 09:00 Chlorhexidine Gluconate (Peridex) 15 ml Q12 MM Last administered on 05/24/18 08:09; Admin Dose 15 ML; Start 05/15/18 at 16:30 Levetiracetam (Keppra Liquid) 500 mg Q12 GTB Last administered on 05/24/18 08:08; Admin Dose 500 MG; Start 05/15/18 at 16:30 Quetiapine Fumarate (Seroquel) 50 mg BID GTB Last administered on 05/24/18 08:08; Admin Dose 50 MG; Start 05/15/18 at 21:00 IV Flush (NS 10 ml) 10 ml PRN PRN IV IV PROTOCOL; Start 05/15/18 at 18:30 Docusate Sodium (Colace Liquid Cup) 100 mg BID GTB Last administered on 05/24/18 08:08; Admin Dose 100 MG; Start 05/15/18 at 21:00 AISSATOU DUNCAN May 24, 2018 14:54
--- NOTE | 2018-05-24 15:22 | PN ---
Date/Time of Note Date/Time of Note DATE: 05/24/18 TIME: 15:19 Assessment/Plan VTE Prophylaxis Risk score (from Ns)>0 risk: 3 SCD applied (from Nsg): Yes Pharmacological prophylaxis: heparin Lines/Catheters IV Catheter Type (from Nrsg): PICC Line Central line still needed: Yes Assessment/Plan Hospital Course Patient with persistent high hyperkalemia status post Kayexalate yesterday, potassium is 5.3 today and another dose of Kayexalate administered. Patient is a tachycardic sinus tachycardia at rate of 110-122 will give IV fluid bolus x1. Patient completed treatment with antibiotics. If potassium is stable and patient is hemodynamically stable [facility] Medications is reconciliation is done, left on on the chart. Discussed with RNJohn. Assessment/Plan - S/p sepsis secondary to pneumonia, completed treatment with meropenem. Dr. Maciel is following in infection disease consultation. - Health care associated pneumonia - Proteus M UTI - Acute on chronic renal failure, continue IV fluids. Continue to monitor BUN and creatinine. Dr. Barker is following patient in nephrology consultation. - Ventilator dependent respiratory failure, continue pulmonary toilet and bronchodilators. Dr Ames is following in pulmonology consultation. - Neurogenic bladder with suprapubic catheter. - Left renal nephrolithiasis, hx of lithotripsy with insertion and subsequent removal of ureteral JJ stent. - Hx of right nephrectomy - Dysphagia with gastrostomy tube. - Multiple decubitus ulcers present on admission. Continue current care per wound consult recommendations, offloading air mattress, optimize nutrition. - Cervical spine injury with paraplegia. - Bipolar disorder with psychosis. Further recommendations based on clinical course. Plan of care discussed with Dr. Barreto. Result Diagram: 05/24/18 1009 05/24/18 1009 Results 24hrs Laboratory Tests Test 05/23/18 15:57 05/24/18 10:09 Sodium Level 144 143 Potassium Level 5.5 H 5.3 H Chloride Level 114 H 115 H Carbon Dioxide Level 22 21 Anion Gap 8 7 Blood Urea Nitrogen 46 H 44 H Creatinine 1.26 H 1.32 H Est Glomerular Filtrat Rate mL/min > 60 60 Glucose Level 97 113 Calcium Level 9.3 9.2 White Blood Count 2.8 L Red Blood Count 2.54 L Hemoglobin 7.3 L Hematocrit 24.2 L Mean Corpuscular Volume 95.3 Mean Corpuscular Hemoglobin 28.7 L Mean Corpuscular Hemoglobin Concent 30.2 L Red Cell Distribution Width 15.4 H Platelet Count 140 Mean Platelet Volume 11.9 H Immature Granulocytes % 0.400 Neutrophils % 69.1 Lymphocytes % 17.8 Monocytes % 8.3 Eosinophils % 4.0 Basophils % 0.4 Nucleated Red Blood Cells % 0.0 Immature Granulocytes # 0.010 Neutrophils # 1.9 Lymphocytes # 0.5 L Monocytes # 0.2 L Eosinophils # 0.1 Basophils # 0.0 Nucleated Red Blood Cells # 0.0 Exam/Review of Systems Exam Vitals Vital Signs Date Temp Pulse Resp B/P (MAP) Pulse Ox O2 O2 Flow FiO2 Time Delivery Rate 05/24/18 112 26 98 30 13:15 05/24/18 98.0 123/85 10:59 (98) 05/23/18 Mechanical 20:00 Ventilator Intake and Output 05/23/18 05/23/18 05/24/18 1515:00 23:00 07:00 IntakeIntake Total 1050 ml 790 ml 790 ml OutputOutput Total 800 ml 1200 ml BalanceBalance 1050 ml -10 ml -410 ml Exam Constitutional: alert, awake Neck: supple, other (Tracheostomy) Respiratory: diminished breath sounds, other (Scattered Rhonchi) Cardiovascular: regular rate and rhythm Gastrointestinal: soft, non-tender, other (G-tube) Genitourinary - Male: other (Suprapubic catheter) Extremities: normal pulses, other (Contracted) Neurological: other (Paraplegia) Skin: other (Multiple wounds) Results Results 24hrs Laboratory Tests Test 05/23/18 15:57 05/24/18 10:09 Sodium Level 144 143 Potassium Level 5.5 H 5.3 H Chloride Level 114 H 115 H Carbon Dioxide Level 22 21 Anion Gap 8 7 Blood Urea Nitrogen 46 H 44 H Creatinine 1.26 H 1.32 H Est Glomerular Filtrat Rate mL/min > 60 60 Glucose Level 97 113 Calcium Level 9.3 9.2 White Blood Count 2.8 L Red Blood Count 2.54 L Hemoglobin 7.3 L Hematocrit 24.2 L Mean Corpuscular Volume 95.3 Mean Corpuscular Hemoglobin 28.7 L Mean Corpuscular Hemoglobin Concent 30.2 L Red Cell Distribution Width 15.4 H Platelet Count 140 Mean Platelet Volume 11.9 H Immature Granulocytes % 0.400 Neutrophils % 69.1 Lymphocytes % 17.8 Monocytes % 8.3 Eosinophils % 4.0 Basophils % 0.4 Nucleated Red Blood Cells % 0.0 Immature Granulocytes # 0.010 Neutrophils # 1.9 Lymphocytes # 0.5 L Monocytes # 0.2 L Eosinophils # 0.1 Basophils # 0.0 Nucleated Red Blood Cells # 0.0 Medications Medication Current Medications IV Flush (NS 3 ml) 3 ml PER PROTOCOL IV ; Start 05/14/18 at 18:30 Lorazepam (Ativan) 0.5 mg Q6H PRN IV .ANXIETY Last administered on 05/20/18at 22:26; Admin Dose 0.5 MG; Start 05/14/18 at 18:30 Ondansetron HCl (Zofran Inj) 4 mg Q6H PRN IV NAUSEA/VOMITING; Start 05/14/18 at 18:30 Acetaminophen/ Hydrocodone Bitart ([place] (5/325)) 1 tab Q6H PRN PO .PAIN 4-6; Start 05/14/18 at 18:30 Acetaminophen/ Hydrocodone Bitart ([place] (5/325)) 2 tab Q6H PRN PO .PAIN 7-10 Last administered on 05/24/18at 08:15; Admin Dose 2 TAB; Start 05/14/18 at 18:30 Hydromorphone HCl (Dilaudid) 0.5 mg Q4H PRN IV .PAIN 7-10 Last administered on 05/24/18at 11:19; Admin Dose 0.5 MG; Start 05/14/18 at 18:30 Docusate Sodium (Colace) 100 mg Q12H PRN PO .CONSTIPATION; Start 05/14/18 at 18:30 Magnesium Hydroxide (Milk Of Mag) 30 ml DAILY PRN PO .CONSTIPATION; Start 05/14/18 at 18:30 Famotidine (Pepcid) 20 mg DAILY PO Last administered on 05/24/18at 08:08; Admin Dose 20 MG; Start 05/14/18 at 21:00 Enoxaparin Sodium (Lovenox) 30 mg DAILY SC Last administered on 05/24/18at 08:11; Admin Dose 30 MG; Start 05/15/18 at 09:00 Miscellaneous Information (Pending Santyl Order For Wound Care) This patient noriega... PRN PRN XX WOUND CARE; Start 05/14/18 at 23:00 Acetaminophen (Tylenol Liquid) 650 mg Q6 PRN PO MILD PAIN(1-3)OR ELEVATED TEMP Last administered on 05/16/18 21:13; Admin Dose 650 MG; Start 05/15/18 at 07:00 Albuterol (Ventolin Hfa) 4 puff Q6H RESP THERAPY INH Last administered on 05/24/18 13:18; Admin Dose 4 PUFF; Start 05/15/18 at 14:00 Ipratropium [place] (Atrovent Hfa) 4 puff Q6H RESP THERAPY INH Last administered on 05/24/18 13:18; Admin Dose 4 PUFF; Start 05/15/18 at 14:00 Collagenase (Santyl) 1 applic DAILY TOP Last administered on 05/24/18 08:09; Admin Dose 1 APPLIC; Start 05/15/18 at 13:00 Multivit/Ca Carb/ B Cmplx/FA/Prenat ([place]) 1 tab DAILY GTB Last administered on 05/24/18 08:08; Admin Dose 1 TAB; Start 05/16/18 at 09:00 Zinc Sulfate (Zinc Sulfate) 220 mg DAILY GTB Last administered on 05/24/18 08:08; Admin Dose 220 MG; Start 05/16/18 at 09:00 Ascorbic Acid (Vitamin C) 250 mg DAILY GTB Last administered on 05/24/18 08:08; Admin Dose 250 MG; Start 05/16/18 at 09:00 Chlorhexidine Gluconate (Peridex) 15 ml Q12 MM Last administered on 05/24/18 08:09; Admin Dose 15 ML; Start 05/15/18 at 16:30 Levetiracetam (Keppra Liquid) 500 mg Q12 GTB Last administered on 05/24/18 08:08; Admin Dose 500 MG; Start 05/15/18 at 16:30 Quetiapine Fumarate (Seroquel) 50 mg BID GTB Last administered on 05/24/18 08:08; Admin Dose 50 MG; Start 05/15/18 at 21:00 IV Flush (NS 10 ml) 10 ml PRN PRN IV IV PROTOCOL; Start 05/15/18 at 18:30 Docusate Sodium (Colace Liquid Cup) 100 mg BID GTB Last administered on 05/24/18at 08:08; Admin Dose 100 MG; Start 05/15/18 at 21:00 AISSATOU DUNCAN May 24, 2018 15:22
[2018-05-25] VITALS (22 sets, daily range): BP systolic 117–145; BP diastolic 61–94; PULSE 88–118; RESP 20–39
[2018-05-25] MEDS: IPRATROPIUM (HFA) 12.9 GM INHALER INH SCH ×4 (02:02→19:19)
[2018-05-25] MEDS: ALBUTEROL HFA 8 GM INHALER INH SCH ×4 (02:02→19:18)
[2018-05-25] MEDS: HYDROmorphONE 0.5 MG/0.5 ML SYG IV PRN ×5 (04:03→23:11)
[2018-05-25] MEDS: MULTIVIT/CA CARB/B CMPLX/FA TAB GTB SCH (09:00)
[2018-05-25] MEDS: ASCORBIC ACID 250 MG TAB GTB SCH (09:00)
[2018-05-25] MEDS: DOCUSATE SODIUM 10 MG/ML (10ML CUP) GTB SCH ×2 (09:01→23:12)
[2018-05-25] MEDS: COLLAGENASE 5 GM (UD JAR) TOP SCH (09:01)
[2018-05-25] MEDS: ZINC SULFATE 220 MG CAP GTB SCH (09:01)
[2018-05-25] MEDS: QUETIAPINE 25 MG TAB GTB SCH ×2 (09:01→23:12)
[2018-05-25] MEDS: LEVETIRACETAM (100 MG/ML) 5ML CUP GTB SCH ×2 (09:01→23:12)
[2018-05-25] MEDS: CHLORHEXIDINE GLUCONATE 15 ML UD CUP MM SCH ×2 (09:01→23:12)
[2018-05-25] MEDS: FAMOTIDINE 20 MG TAB PO SCH (09:01)
[2018-05-25] MEDS: BALSAM PERU/CASTOR OIL 60 GM TUBE TOP SCH ×2 (09:02→23:13)
[2018-05-25] MEDS: ENOXAPARIN 30 MG/0.3 ML SYG SC SCH (09:54)
--- NOTE | 2018-05-25 12:51 | PN ---
Date/Time of Note Date/Time of Note DATE: 05/25/18 TIME: 12:51 Assessment/Plan VTE Prophylaxis Risk score (from Ns)>0 risk: 4 SCD applied (from Nsg): Yes Lines/Catheters IV Catheter Type (from Nrs): PICC Line Assessment/Plan Assessment/Plan - S/p sepsis secondary to pneumonia, completed treatment with meropenem. Dr. Maciel is following in infection disease consultation. - Health care associated pneumonia - Proteus M UTI - Acute on chronic renal failure, continue IV fluids. Continue to monitor BUN and creatinine. Dr. Barker is following patient in nephrology consultation. - Ventilator dependent respiratory failure, continue pulmonary toilet and bronchodilators. Dr Ames is following in pulmonology consultation. - Neurogenic bladder with suprapubic catheter. - Left renal nephrolithiasis, hx of lithotripsy with insertion and subsequent removal of ureteral JJ stent. - Hx of right nephrectomy - Dysphagia with gastrostomy tube. - Multiple decubitus ulcers present on admission. Continue current care per wound consult recommendations, offloading air mattress, optimize nutrition. - Cervical spine injury with paraplegia. - Bipolar disorder with psychosis. Further recommendations based on clinical course. Plan of care discussed with Dr. Barreto. Result Diagram: Result Diagram: 05/24/18 1009 05/25/18 0526 Results 24hrs Laboratory Tests Test 05/25/18 05:26 Sodium Level 147 H Potassium Level 5.1 Chloride Level 117 H Carbon Dioxide Level 21 Anion Gap 9 Blood Urea Nitrogen 61 H Creatinine 1.25 H Est Glomerular Filtrat Rate mL/min > 60 Glucose Level 125 Calcium Level 9.3 Exam/Review of Systems Exam Vitals Vital Signs Date Temp Pulse Resp B/P (MAP) Pulse Ox O2 O2 Flow FiO2 Time Delivery Rate 05/25/18 88 12:14 05/25/18 98.3 20 139/94 100 10:49 (109) 05/25/18 30 10:12 05/23/18 Mechanical 20:00 Ventilator Intake and Output 05/24/18 05/24/18 05/25/18 1515:00 23:00 07:00 IntakeIntake Total 1350 ml 750 ml OutputOutput Total 1200 ml 1100 ml BalanceBalance 150 ml -350 ml Results Results 24hrs Laboratory Tests Test 05/25/18 05:26 Sodium Level 147 H Potassium Level 5.1 Chloride Level 117 H Carbon Dioxide Level 21 Anion Gap 9 Blood Urea Nitrogen 61 H Creatinine 1.25 H Est Glomerular Filtrat Rate mL/min > 60 Glucose Level 125 Calcium Level 9.3 Medications Medication Current Medications IV Flush (NS 3 ml) 3 ml PER PROTOCOL IV ; Start 05/14/18 at 18:30 Lorazepam (Ativan) 0.5 mg Q6H PRN IV .ANXIETY Last administered on 05/20/18 22:26; Admin Dose 0.5 MG; Start 05/14/18 at 18:30 Ondansetron HCl (Zofran Inj) 4 mg Q6H PRN IV NAUSEA/VOMITING; Start 05/14/18 at 18:30 Acetaminophen/ Hydrocodone Bitart ([place] (5/325)) 1 tab Q6H PRN PO .PAIN 4-6; Start 05/14/18 at 18:30 Acetaminophen/ Hydrocodone Bitart ([place] (5/325)) 2 tab Q6H PRN PO .PAIN 7-10 Last administered on 05/24/18at 08:15; Admin Dose 2 TAB; Start 05/14/18 at 18:30 Hydromorphone HCl (Dilaudid) 0.5 mg Q4H PRN IV .PAIN 7-10 Last administered on 05/25/18 09:02; Admin Dose 0.5 MG; Start 05/14/18 at 18:30 Docusate Sodium (Colace) 100 mg Q12H PRN PO .CONSTIPATION; Start 05/14/18 at 18:30 Magnesium Hydroxide (Milk Of Mag) 30 ml DAILY PRN PO .CONSTIPATION; Start 05/14/18 at 18:30 Famotidine (Pepcid) 20 mg DAILY PO Last administered on 05/25/18at 09:01; Admin Dose 20 MG; Start 05/14/18 at 21:00 Enoxaparin Sodium (Lovenox) 30 mg DAILY SC Last administered on 05/25/18at 09:54; Admin Dose 30 MG; Start 05/15/18 at 09:00 Miscellaneous Information [facility] This patient noriega... PRN PRN XX WOUND CARE; Start 05/14/18 at 23:00 Acetaminophen (Tylenol Liquid) 650 mg Q6 PRN PO MILD PAIN(1-3)OR ELEVATED TEMP Last administered on 05/16/18 21:13; Admin Dose 650 MG; Start 05/15/18 at 07:00 Albuterol (Ventolin Hfa) 4 puff Q6H RESP THERAPY INH Last administered on 05/07 08:04; Admin Dose 4 PUFF; Start 05/15/18 at 14:00 Ipratropium [place] (Atrovent Hfa) 4 puff Q6H RESP THERAPY INH Last administered on 05/25/18 08:04; Admin Dose 4 PUFF; Start 05/15/18 at 14:00 Collagenase (Santyl) 1 applic DAILY TOP Last administered on 05/25/18 09:01; Admin Dose 1 APPLIC; Start 05/15/18 at 13:00 Multivit/Ca Carb/ B Cmplx/FA/Prenat ([place]) 1 tab DAILY GTB Last admini stered on 05/25/18 09:00; Admin Dose 1 TAB; Start 05/16/18 at 09:00 Zinc Sulfate (Zinc Sulfate) 220 mg DAILY GTB Last administered on 05/25/18 09:01; Admin Dose 220 MG; Start 05/16/18 at 09:00 Ascorbic Acid (Vitamin C) 250 mg DAILY GTB Last administered on 05/25/18 09:00; Admin Dose 250 MG; Start 05/16/18 at 09:00 Chlorhexidine Gluconate (Peridex) 15 ml Q12 MM Last administered on 05/25/18 09:01; Admin Dose 15 ML; Start 05/15/18 at 16:30 Levetiracetam (Keppra Liquid) 500 mg Q12 GTB Last administered on 05/25/18 09:01; Admin Dose 500 MG; Start 05/15/18 at 16:30 Quetiapine Fumarate (Seroquel) 50 mg BID GTB Last administered on 05/25/18 09:01; Admin Dose 50 MG; Start 05/15/18 at 21:00 IV Flush (NS 10 ml) 10 ml PRN PRN IV IV PROTOCOL; Start 05/15/18 at 18:30 Docusate Sodium (Colace Liquid Cup) 100 mg BID GTB Last administered on 05/25/18 09:01; Admin Dose 100 MG; Start 4/9/19 at 21:00 NAE VELAZCO May 25, 2018 12:51
--- NOTE | 2018-05-25 13:49 | CONS ---
Assessment/Plan Assessment/Plan Hospital Course (Demo Recall) No acute changes, sleeping, no fevers Microbiology: Urine culture grew Proteus mirabilis, sputum culture growing further dentia, blood culture grew staph sp. 1 out of 2 sets Indwelling: Trach, PEG, PICC line, suprapubic catheter Allergies: Tetracycline Antimicrobials: completed Physical examination: Chronically ill-appearing middle-aged man who is in no distress. Head atraumatic normocephalic neck is supple chest rise symmetrical breath sounds diminished bases. Heart: S1-S2. Abdomen soft bowel sounds present. Extremities wasted without cyanosis Assessment: 1. S/p severe sepsis with shock 2. Bacteremia, cw contaminant 2. S/p healthcare associated pneumonia 3. Urinary tract infection 4. Chronic respiratory failure and dysphagia 5. Acute on chronic kidney disease 6. Neurogenic bladder status post suprapubic catheter placement 7. Incomplete quadriplegia 8. History of nephrectomy 9. History of scabies 10. Multiple chronic wounds Plan: Remains stable, continue observing off abx Consultation Date/Type/Reason Admit Date/Time May 14, 2018 at 18:34 Initial Consult Date 05/15/18 Type of Consult id Requesting Provider: JOSÉ ANTONIO MIRZA MD Date/Time of Note DATE: 05/25/18 TIME: 13:49 Exam/Review of Systems Exam Vitals Vital Signs Date Temp Pulse Resp B/P (MAP) Pulse Ox O2 O2 Flow FiO2 Time Delivery Rate 05/25/18 88 12:14 05/25/18 98.3 20 139/94 100 10:49 (109) 05/25/18 30 10:12 05/23/18 Mechanical 20:00 Ventilator Intake and Output 05/24/18 05/24/18 05/25/18 1515:00 23:00 07:00 IntakeIntake Total 1350 ml 750 ml OutputOutput Total 1200 ml 1100 ml BalanceBalance 150 ml -350 ml Results Result Diagram: 05/24/18 1009 05/25/18 0526 Results 24hrs Laboratory Tests Test 05/25/18 05:26 Sodium Level 147 H Potassium Level 5.1 Chloride Level 117 H Carbon Dioxide Level 21 Anion Gap 9 Blood Urea Nitrogen 61 H Creatinine 1.25 H Est Glomerular Filtrat Rate mL/min > 60 Glucose Level 125 Calcium Level 9.3 Medications Medication Current Medications IV Flush (NS 3 ml) 3 ml PER PROTOCOL IV ; Start 05/14/18 at 18:30 Lorazepam (Ativan) 0.5 mg Q6H PRN IV .ANXIETY Last administered on 05/20/18 22:26; Admin Dose 0.5 MG; Start 05/14/18 at 18:30 Ondansetron HCl (Zofran Inj) 4 mg Q6H PRN IV NAUSEA/VOMITING; Start 05/14/18 at 18:30 Acetaminophen/ Hydrocodone Bitart ([place] (5/325)) 1 tab Q6H PRN PO .PAIN 4-6; Start 05/14/18 at 18:30 Acetaminophen/ Hydrocodone Bitart ([place] (5/325)) 2 tab Q6H PRN PO .PAIN 7-10 Last administered on 05/24/18 08:15; Admin Dose 2 TAB; Start 05/14/18 at 18:30 Hydromorphone HCl (Dilaudid) 0.5 mg Q4H PRN IV .PAIN 7-10 Last administered on 05/25/18 09:02; Admin Dose 0.5 MG; Start 05/14/18 at 18:30 Docusate Sodium (Colace) 100 mg Q12H PRN PO .CONSTIPATION; Start 05/14/18 at 18:30 Magnesium Hydroxide (Milk Of Mag) 30 ml DAILY PRN PO .CONSTIPATION; Start 05/14/18 at 18:30 Famotidine (Pepcid) 20 mg DAILY PO Last administered on 05/25/18 09:01; Admin Dose 20 MG; Start 05/14/18 at 21:00 Enoxaparin Sodium (Lovenox) 30 mg DAILY SC Last administered on 05/25/18 09:54; Admin Dose 30 MG; Start 05/15/18 at 09:00 Miscellaneous Information (Pending Santyl Order For Wound Care) This patient noriega... PRN PRN XX WOUND CARE; Start 05/14/18 at 23:00 Acetaminophen (Tylenol Liquid) 650 mg Q6 PRN PO MILD PAIN(1-3)OR ELEVATED TEMP Last administered on 05/16/18 21:13; Admin Dose 650 MG; Start 05/15/18 at 07:00 Albuterol (Ventolin Hfa) 4 puff Q6H RESP THERAPY INH Last administered on 05/25/18 13:47; Admin Dose 4 PUFF; Start 05/15/18 at 14:00 Ipratropium [place] (Atrovent Hfa) 4 puff Q6H RESP THERAPY INH Last administered on 05/25/18 13:46; Admin Dose 4 PUFF; Start 05/15/18 at 14:00 Collagenase (Santyl) 1 applic DAILY TOP Last administered on 05/25/18 09:01; Admin Dose 1 APPLIC; Start 05/15/18 at 13:00 Multivit/Ca Carb/ B Cmplx/FA/Prenat ([place]ilib[place]-L[place]) 1 tab DAILY GTB Last administered on 05/25/18 09:00; Admin Dose 1 TAB; Start 05/16/18 at 09:00 Zinc Sulfate (Zinc Sulfate) 220 mg DAILY GTB Last administered on 05/25/18 09:01; Admin Dose 220 MG; Start 05/16/18 at 09:00 Ascorbic Acid (Vitamin C) 250 mg DAILY GTB Last administered on 05/25/18 09:00; Admin Dose 250 MG; Start 05/16/18 at 09:00 Chlorhexidine Gluconate (Peridex) 15 ml Q12 MM Last administered on 05/25/18 09:01; Admin Dose 15 ML; Start 05/15/18 at 16:30 Levetiracetam (Keppra Liquid) 500 mg Q12 GTB Last administered on 05/25/18 09:01; Admin Dose 500 MG; Start 05/15/18 at 16:30 Quetiapine Fumarate (Seroquel) 50 mg BID GTB Last administered on 05/25/18 09:01; Admin Dose 50 MG; Start 05/15/18 at 21:00 IV Flush (NS 10 ml) 10 ml PRN PRN IV IV PROTOCOL; Start 05/15/18 at 18:30 Docusate Sodium (Colace Liquid Cup) 100 mg BID GTB Last administered on 05/25/18 09:01; Admin Dose 100 MG; Start 05/15/18 at 21:00 REGINALDO CHERY NP May 25, 2018 13:49
--- NOTE | 2018-05-25 21:18 | CONS ---
Assessment/Plan Assessment/Plan Assessment/Plan (Daily) 1. Acute on chronic renal failure 2. Hypernatremia- Mild 3. UTI 4. history of paraplegia secondary to cervical spine injury, ventilator dependent respiratory failure with striking ostomy, dysphagia with G-tube, neurogenic bladder with suprapubic catheter, right nephrectomy, left renal renal nephrolithiasis with history of lithotripsy and stent placement and urethral stent removal, history of bipolar disorder Plan: BUN/Cr improved to 61/1.25 Na 147, K 5.1- if Na continues to trend up wiht AM labs tomorrow then we will consider IVF D5W s/p IV abx now, monitor electrolytes and replace as needed will follow up Consultation Date/Type/Reason Admit Date/Time May 14, 2018 at 18:34 Initial Consult Date 05/15/18 Type of Consult NEPHROLOGY Requesting Provider: JOSÉ ANTONIO MIRZA MD Date/Time of Note DATE: 05/25/18 TIME: 21:18 Exam/Review of Systems Exam Vitals Vital Signs Date Temp Pulse Resp B/P (MAP) Pulse Ox O2 O2 Flow FiO2 Time Delivery Rate 05/25/18 116 20:38 05/25/18 97.7 27 117/89 98 19:42 (98) 05/25/18 30 19:19 05/23/18 Mechanical 20:00 Ventilator Intake and Output 05/24/18 05/24/18 05/25/18 1515:00 23:00 07:00 IntakeIntake Total 1350 ml 750 ml OutputOutput Total 1200 ml 1100 ml BalanceBalance 150 ml -350 ml Exam Constitutional: alert, oriented Neck: supple, + tracheostomy, site is clear Respiratory: decreasesd BS at bases, no wheezing, no crackles Cardiovascular: regular rate and rhythm, other (Tachycardic) Gastrointestinal: soft, non-tender, other (G-tube) Genitourinary - Male: other (Suprapubic catheter) Extremities: normal pulses, other (Contracted) Neurological: other (Paraplegia) Skin: other (Multiple wounds) Results Result Diagram: 05/24/18 1009 05/25/18 0526 Results 24hrs Laboratory Tests Test 05/25/18 05:26 Sodium Level 147 H Potassium Level 5.1 Chloride Level 117 H Carbon Dioxide Level 21 Anion Gap 9 Blood Urea Nitrogen 61 H Creatinine 1.25 H Est Glomerular Filtrat Rate mL/min > 60 Glucose Level 125 Calcium Level 9.3 Medications Medication Current Medications IV Flush (NS 3 ml) 3 ml PER PROTOCOL IV ; Start 05/14/18 at 18:30 Lorazepam (Ativan) 0.5 mg Q6H PRN IV .ANXIETY Last administered on 05/20/18 22:26; Admin Dose 0.5 MG; Start 05/14/18 at 18:30 Ondansetron HCl (Zofran Inj) 4 mg Q6H PRN IV NAUSEA/VOMITING; Start 05/14/18 at 18:30 Acetaminophen/ Hydrocodone Bitart ([place] (5/325)) 1 tab Q6H PRN PO .PAIN 4-6; Start 05/14/18 at 18:30 Acetaminophen/ Hydrocodone Bitart ([place] (5/325)) 2 tab Q6H PRN PO .PAIN 7-10 Last administered on 05/24/18 08:15; Admin Dose 2 TAB; Start 05/14/18 at 18:30 Hydromorphone HCl (Dilaudid) 0.5 mg Q4H PRN IV .PAIN 7-10 Last administered on 05/25/18 18:39; Admin Dose 0.5 MG; Start 05/14/18 at 18:30 Docusate Sodium (Colace) 100 mg Q12H PRN PO .CONSTIPATION; Start 05/14/18 at 18:30 Magnesium Hydroxide (Milk Of Mag) 30 ml DAILY PRN PO .CONSTIPATION; Start 05/14/18 at 18:30 Famotidine (Pepcid) 20 mg DAILY PO Last administered on 05/25/18 09:01; Admin Dose 20 MG; Start 05/14/18 at 21:00 Enoxaparin Sodium (Lovenox) 30 mg DAILY SC Last administered on 05/25/18 09:54; Admin Dose 30 MG; Start 05/15/18 at 09:00 Miscellaneous Information (Pending [facility] Order For Wound Care) This patient noriega... PRN PRN XX WOUND CARE; Start 05/14/18 at 23:00 Acetaminophen (Tylenol Liquid) 650 mg Q6 PRN PO MILD PAIN(1-3)OR ELEVATED TEMP Last administered on 05/16/18at 21:13; Admin Dose 650 MG; Start 05/15/18 at 07:00 Albuterol (Ventolin Hfa) 4 puff Q6H RESP THERAPY INH Last administered on 05/25/18 19:18; Admin Dose 4 PUFF; Start 05/15/18 at 14:00 Ipratropium [place] (Atrovent Hfa) 4 puff Q6H RESP THERAPY INH Last administered on 05/25/18 19:19; Admin Dose 4 PUFF; Start 05/15/18 at 14:00 Collagenase (Santyl) 1 applic DAILY TOP Last administered on 05/25/18 09:01; Admin Dose 1 APPLIC; Start 05/15/18 at 13:00 Multivit/Ca Carb/ B Cmplx/FA/Prenat ([place]) 1 tab DAILY GTB Last administered on 05/25/18 09:00; Admin Dose 1 TAB; Start 05/16/18 at 09:00 Zinc Sulfate (Zinc Sulfate) 220 mg DAILY GTB Last administered on 05/25/18 09:01; Admin Dose 220 MG; Start 05/16/18 at 09:00 Ascorbic Acid (Vitamin C) 250 mg DAILY GTB Last administered on 05/25/18 09:00; Admin Dose 250 MG; Start 05/16/18 at 09:00 Chlorhexidine Gluconate (Peridex) 15 ml Q12 MM Last administered on 05/25/18 09:01; Admin Dose 15 ML; Start 05/15/18 at 16:30 Levetiracetam (Keppra Liquid) 500 mg Q12 GTB Last administered on 05/25/18 09:01; Admin Dose 500 MG; Start 05/15/18 at 16:30 Quetiapine Fumarate (Seroquel) 50 mg BID GTB Last administered on 05/25/18 09:01; Admin Dose 50 MG; Start 05/15/18 at 21:00 IV Flush (NS 10 ml) 10 ml PRN PRN IV IV PROTOCOL; Start 05/15/18 at 18:30 Docusate Sodium (Colace Liquid Cup) 100 mg BID GTB Last administered on 05/25/18 09:01; Admin Dose 100 MG; Start 05/15/18 at 21:00 TIARA CISNEROS MD May 25, 2018 21:18
[2018-05-26] VITALS (25 sets, daily range): BP systolic 119–135; BP diastolic 82–98; PULSE 97–122; RESP 20–38
[2018-05-26] MEDS: ALBUTEROL HFA 8 GM INHALER INH SCH ×4 (01:38→20:06)
[2018-05-26] MEDS: IPRATROPIUM (HFA) 12.9 GM INHALER INH SCH ×4 (01:38→20:06)
[2018-05-26] MEDS: HYDROmorphONE 0.5 MG/0.5 ML SYG IV PRN ×5 (03:01→20:13)
[2018-05-26] MEDS: MULTIVIT/CA CARB/B CMPLX/FA TAB GTB SCH (07:57)
[2018-05-26] MEDS: ZINC SULFATE 220 MG CAP GTB SCH (07:57)
[2018-05-26] MEDS: COLLAGENASE 5 GM (UD JAR) TOP SCH (07:58)
[2018-05-26] MEDS: ASCORBIC ACID 250 MG TAB GTB SCH (07:58)
[2018-05-26] MEDS: CHLORHEXIDINE GLUCONATE 15 ML UD CUP MM SCH ×2 (07:58→20:13)
[2018-05-26] MEDS: DOCUSATE SODIUM 10 MG/ML (10ML CUP) GTB SCH ×2 (07:58→20:12)
[2018-05-26] MEDS: QUETIAPINE 25 MG TAB GTB SCH ×2 (07:58→20:16)
[2018-05-26] MEDS: FAMOTIDINE 20 MG TAB PO SCH (07:59)
[2018-05-26] MEDS: BALSAM PERU/CASTOR OIL 60 GM TUBE TOP SCH (07:59)
[2018-05-26] MEDS: ENOXAPARIN 30 MG/0.3 ML SYG SC SCH (08:02)
[2018-05-26] MEDS: LEVETIRACETAM (100 MG/ML) 5ML CUP GTB SCH ×2 (08:12→20:12)
--- NOTE | 2018-05-26 12:17 | PN ---
Date/Time of Note Date/Time of Note DATE: 05/26/18 TIME: 12:17 Assessment/Plan VTE Prophylaxis Risk score (from Ns)>0 risk: 5 SCD applied (from Ns): Yes Pharmacological prophylaxis: LMWH Lines/Catheters IV Catheter Type (from Nrsg): PICC Line Central line still needed: Yes Assessment/Plan Hospital Course - S/p sepsis secondary to pneumonia, completed treatment with meropenem. Dr. Maciel is following in infection disease consultation. - Health care associated pneumonia - Proteus M UTI - Acute on chronic renal failure, continue IV fluids. Continue to monitor BUN and creatinine. Dr. Barker is following patient in nephrology consultation. - Ventilator dependent respiratory failure, continue pulmonary toilet and bronchodilators. Dr Ames is following in pulmonology consultation. - Neurogenic bladder with suprapubic catheter. - Left renal nephrolithiasis, hx of lithotripsy with insertion and subsequent removal of ureteral JJ stent. - Hx of right nephrectomy - Dysphagia with gastrostomy tube. - Multiple decubitus ulcers present on admission. Continue current care per wou nd consult recommendations, offloading air mattress, optimize nutrition. - Cervical spine injury with paraplegia. - Bipolar disorder with psychosis. Result Diagram: 05/24/18 1009 05/26/18 0558 Results 24hrs Laboratory Tests Test 05/26/18 05:58 Sodium Level 148 H Potassium Level 5.2 H Chloride Level 113 H Carbon Dioxide Level 23 Anion Gap 12 Blood Urea Nitrogen 65 H Creatinine 1.32 H Est Glomerular Filtrat Rate mL/min 60 Glucose Level 112 Calcium Level 9.5 Subjective 24 Hr Interval Summary Free Text/Dictation Patient is resting, appears comfortable Exam/Review of Systems Exam Vitals Vital Signs Date Temp Pulse Resp B/P (MAP) Pulse Ox O2 O2 Flow FiO2 Time Delivery Rate 05/26/18 97.8 120 20 135/98 98 11:13 (110) 05/26/18 30 09:20 05/23/18 Mechanical 20:00 Ventilator Intake and Output 05/25/18 05/25/18 05/26/18 1515:00 23:00 07:00 IntakeIntake Total 850 ml OutputOutput Total 500 ml BalanceBalance 350 ml Constitutional: well developed Head: normocephalic, atraumatic Neck: supple Respiratory: diminished breath sounds Cardiovascular: regular rate and rhythm Gastrointestinal: soft, non-tender Extremities: normal pulses Results Results 24hrs Laboratory Tests Test 05/26/18 05:58 Sodium Level 148 H Potassium Level 5.2 H Chloride Level 113 H Carbon Dioxide Level 23 Anion Gap 12 Blood Urea Nitrogen 65 H Creatinine 1.32 H Est Glomerular Filtrat Rate mL/min 60 Glucose Level 112 Calcium Level 9.5 Medications Medication Current Medications IV Flush (NS 3 ml) 3 ml PER PROTOCOL IV ; Start 05/14/18 at 18:30 Lorazepam (Ativan) 0.5 mg Q6H PRN IV .ANXIETY Last administered on 05/20/18 22:26; Admin Dose 0.5 MG; Start 05/14/18 at 18:30 Ondansetron HCl (Zofran Inj) 4 mg Q6H PRN IV NAUSEA/VOMITING; Start 05/14/18 at 18:30 Acetaminophen/ Hydrocodone Bitart ([place] (5/325)) 1 tab Q6H PRN PO .PAIN 4-6; Start 05/14/18 at 18:30 Acetaminophen/ Hydrocodone Bitart ([place] (5/325)) 2 tab Q6H PRN PO .PAIN 7-10 Last administered on 05/24/18at 08:15; Admin Dose 2 TAB; Start 05/14/18 at 18:30 Hydromorphone HCl (Dilaudid) 0.5 mg Q4H PRN IV .PAIN 7-10 Last administered on 05/26/18at 11:14; Admin Dose 0.5 MG; Start 05/14/18 at 18:30 Docusate Sodium (Colace) 100 mg Q12H PRN PO .CONSTIPATION; Start 05/14/18 at 18:30 Magnesium Hydroxide (Milk Of Mag) 30 ml DAILY PRN PO .CONSTIPATION; Start 05/14/18 at 18:30 Famotidine (Pepcid) 20 mg DAILY PO Last administered on 05/26/18at 07:59; Admin Dose 20 MG; Start 05/14/18 at 21:00 Enoxaparin Sodium (Lovenox) 30 mg DAILY SC Last administered on 05/26/18 08:02; Admin Dose 30 MG; Start 05/15/18 at 09:00 Miscellaneous Information (Pending [facility] Order For Wound Care) This patient noriega... PRN PRN XX WOUND CARE; Start 05/14/18 at 23:00 Acetaminophen (Tylenol Liquid) 650 mg Q6 PRN PO MILD PAIN(1-3)OR ELEVATED TEMP Last administered on 05/16/18 21:13; Admin Dose 650 MG; Start 05/15/18 at 07:00 Albuterol (Ventolin Hfa) 4 puff Q6H RESP THERAPY INH Last administered on 05/26/18 08:01; Admin Dose 4 PUFF; Start 05/15/18 at 14:00 Ipratropium [place] (Atrovent Hfa) 4 puff Q6H RESP THERAPY INH Last administer ed on 05/26/18 08:01; Admin Dose 4 PUFF; Start 05/15/18 at 14:00 Collagenase (Santyl) 1 applic DAILY TOP Last administered on 05/26/18 07:58; Admin Dose 1 APPLIC; Start 05/15/18 at 13:00 Multivit/Ca Carb/ B Cmplx/FA/Prenat ([place]-Linn) 1 tab DAILY GTB Last administered on 05/26/18 07:57; Admin Dose 1 TAB; Start 05/16/18 at 09:00 Zinc Sulfate (Zinc Sulfate) 220 mg DAILY GTB Last administered on 05/26/18 07:57; Admin Dose 220 MG; Start 05/16/18 at 09:00 Ascorbic Acid (Vitamin C) 250 mg DAILY GTB Last administered on 05/26/18 07:58; Admin Dose 250 MG; Start 05/16/18 at 09:00 Chlorhexidine Gluconate (Peridex) 15 ml Q12 MM Last administered on 05/26/18 07:58; Admin Dose 15 ML; Start 05/15/18 at 16:30 Levetiracetam (Keppra Liquid) 500 mg Q12 GTB Last administered on 05/26/18 08:12; Admin Dose 500 MG; Start 05/15/18 at 16:30 Quetiapine Fumarate (Seroquel) 50 mg BID GTB Last administered on 05/26/18 07:58; Admin Dose 50 MG; Start 05/15/18 at 21:00 IV Flush (NS 10 ml) 10 ml PRN PRN IV IV PROTOCOL; Start 05/15/18 at 18:30 Docusate Sodium (Colace Liquid Cup) 100 mg BID GTB Last administered on 05/26/18at 07:58; Admin Dose 100 MG; Start 05/15/18 at 21:00 DANAY MUIR May 26, 2018 12:17
--- NOTE | 2018-05-26 17:36 | CONS ---
Consultation Date/Type/Reason Admit Date/Time May 14, 2018 at 18:34 Initial Consult Date SUBJECTIVE: Pt is sleeping, no fevers. NO acute events over night. Vs: stable T: 98.4 LABS: Reviewed. Microbiology: Urine culture grew Proteus mirabilis, sputum culture growing further dentia, blood culture grew staph sp. 1 out of 2 sets Indwelling: Trach, PEG, PICC line, suprapubic catheter Allergies: Tetracycline Antimicrobials: completed Physical examination: GEN: Chronically ill-appearing middle-aged man who is in no distress. HENT: Head atraumatic normocephalic, neck is supple PULM: chest rise symmetrical, breath sounds diminished bases. Heart: S1-S2. Abdomen soft bowel sounds present. Extremities wasted without cyanosis Assessment: 1. S/p severe sepsis with shock 2. Bacteremia, cw contaminant 2. S/p healthcare associated pneumonia 3. Urinary tract infection 4. Chronic respiratory failure and dysphagia 5. Acute on chronic kidney disease 6. Neurogenic bladder status post suprapubic catheter placement 7. Incomplete quadriplegia 8. History of nephrectomy 9. History of scabies 10. Multiple chronic wounds Plan: Patient remains stable. Continue observing off abx. Requesting Provider: JOSÉ ANTONIO MIRZA MD Date/Time of Note DATE: 05/26/18 TIME: 17:34 Exam/Review of Systems Exam Vitals Vital Signs Date Temp Pulse Resp B/P (MAP) Pulse Ox O2 O2 Flow FiO2 Time Delivery Rate 05/26/18 110 38 98 30 17:01 05/26/18 98.4 130/96 16:00 (107) 05/23/18 Mechanical 20:00 Ventilator Intake and Output 05/25/18 05/25/18 05/26/18 1515:00 23:00 07:00 IntakeIntake Total 850 ml OutputOutput Total 500 ml BalanceBalance 350 ml Results Result Diagram: 05/24/18 1009 05/26/18 0558 Results 24hrs Laboratory Tests Test 05/26/18 05:58 Sodium Level 148 H Potassium Level 5.2 H Chloride Level 113 H Carbon Dioxide Level 23 Anion Gap 12 Blood Urea Nitrogen 65 H Creatinine 1.32 H Est Glomerular Filtrat Rate mL/min 60 Glucose Level 112 Calcium Level 9.5 Medications Medication Current Medications IV Flush (NS 3 ml) 3 ml PER PROTOCOL IV ; Start 05/14/18 at 18:30 Lorazepam (Ativan) 0.5 mg Q6H PRN IV .ANXIETY Last administered on 05/20/18 22:26; Admin Dose 0.5 MG; Start 05/14/18 at 18:30 Ondansetron HCl (Zofran Inj) 4 mg Q6H PRN IV NAUSEA/VOMITING; Start 05/14/18 at 18:30 Acetaminophen/ Hydrocodone Bitart ([place] (5/325)) 1 tab Q6H PRN PO .PAIN 4-6; Start 05/14/18 at 18:30 Acetaminophen/ Hydrocodone Bitart ([place] (5/325)) 2 tab Q6H PRN PO .PAIN 7-10 Last administered on 05/24/18 08:15; Admin Dose 2 TAB; Start 05/14/18 at 18:30 Hydromorphone HCl (Dilaudid) 0.5 mg Q4H PRN IV .PAIN 7-10 Last administered on 05/26/18 15:59; Admin Dose 0.5 MG; Start 05/14/18 at 18:30 Docusate Sodium (Colace) 100 mg Q12H PRN PO .CONSTIPATION; Start 05/14/18 at 18:30 Magnesium Hydroxide (Milk Of Mag) 30 ml DAILY PRN PO .CONSTIPATION; Start 05/14/18 at 18:30 Famotidine (Pepcid) 20 mg DAILY PO Last administered on 05/26/18 07:59; Admin Dose 20 MG; Start 05/14/18 at 21:00 Enoxaparin Sodium (Lovenox) 30 mg DAILY SC Last administered on 05/26/18 08:02; Admin Dose 30 MG; Start 05/15/18 at 09:00 Miscellaneous Information (Pending Santyl Order For Wound Care) This patient noriega... PRN PRN XX WOUND CARE; Start 05/14/18 at 23:00 Acetaminophen (Tylenol Liquid) 650 mg Q6 PRN PO MILD PAIN(1-3)OR ELEVATED TEMP Last administered on 05/16/18 21:13; Admin Dose 650 MG; Start 05/15/18 at 07:00 Albuterol (Ventolin Hfa) 4 puff Q6H RESP THERAPY INH Last administered on 05/26/18 13:37; Admin Dose 4 PUFF; Start 05/15/18 at 14:00 Ipratropium [place] (Atrovent Hfa) 4 puff Q6H RESP THERAPY INH Last administered on 05/26/18 13:37; Admin Dose 4 PUFF; Start 05/15/18 at 14:00 Collagenase (Santyl) 1 applic DAILY TOP Last administered on 05/26/18 07:58; Admin Dose 1 APPLIC; Start 05/15/18 at 13:00 Multivit/Ca Carb/ B Cmplx/FA/Prenat (Lilibeth-Linn) 1 tab DAILY GTB Last administered on 05/26/18 07:57; Admin Dose 1 TAB; Start 05/16/18 at 09:00 Zinc Sulfate (Zinc Sulfate) 220 mg DAILY GTB Last administered on 05/26/18 07:57; Admin Dose 220 MG; Start 05/16/18 at 09:00 Ascorbic Acid (Vitamin C) 250 mg DAILY GTB Last administered on 05/26/18 07:58; Admin Dose 250 MG; Start 05/16/18 at 09:00 Chlorhexidine Gluconate (Peridex) 15 ml Q12 MM Last administered on 05/26/18 07:58; Admin Dose 15 ML; Start 05/15/18 at 16:30 Levetiracetam (Keppra Liquid) 500 mg Q12 GTB Last administered on 05/26/18 08:12; Admin Dose 500 MG; Start 05/15/18 at 16:30 Quetiapine Fumarate (Seroquel) 50 mg BID GTB Last administered on 05/26/18 07:58; Admin Dose 50 MG; Start 05/15/18 at 21:00 IV Flush (NS 10 ml) 10 ml PRN PRN IV IV PROTOCOL; Start 05/15/18 at 18:30 Docusate Sodium (Colace Liquid Cup) 100 mg BID GTB Last administered on 05/26/18 07:58; Admin Dose 100 MG; Start 05/15/18 at 21:00 ADELAIDA PEREZ May 26, 2018 17:36
--- NOTE | 2018-05-26 17:40 | CONS ---
Assessment/Plan Assessment/Plan Assessment/Plan (Daily) -Hyperkalemia- Kayexalate 15 gm viai gt x 1; am AMP 1. Acute on chronic renal failure 2. Hypernatremia- Mild 3. UTI 4. history of paraplegia secondary to cervical spine injury, ventilator dependent respiratory failure with striking ostomy, dysphagia with G-tube, neurogenic bladder with suprapubic catheter, right nephrectomy, left renal renal nephrolithiasis with history of lithotripsy and stent placement and urethral stent removal, history of bipolar disorder Plan: BUN/Cr - 65/1.32 Na 148, K 5.2- if Na continues to trend up AM labs tomorrow then we will consider IVF D5W s/p IV abx now, monitor electrolytes and replace as needed will follow up Patient seen in collaboration with Dr Paul Barker. dw staff Consultation Date/Type/Reason Admit Date/Time May 14, 2018 at 18:34 Initial Consult Date 05/15/18 Type of Consult NEPHROLOGY Requesting Provider: JOSÉ ANTONIO MIRZA MD Date/Time of Note DATE: 05/26/18 TIME: 17:40 Exam/Review of Systems Exam Vitals Vital Signs Date Temp Pulse Resp B/P (MAP) Pulse Ox O2 O2 Flow FiO2 Time Delivery Rate 05/26/18 110 38 98 30 17:01 05/26/18 98.4 130/96 16:00 (107) 05/23/18 Mechanical 20:00 Ventilator Intake and Output 05/25/18 05/25/18 05/26/18 1515:00 23:00 07:00 IntakeIntake Total 850 ml OutputOutput Total 500 ml BalanceBalance 350 ml Constitutional: alert, non-verbal, frail Psych: nl mood/affect Head: atraumatic Eyes: nl lids ENMT: nl external ears & nose Neck: supple, other (neck intact) Respiratory: clear to auscultation Cardiovascular: nl pulses, other (s1s2) Gastrointestinal: soft, non-tender, other (gt intact) Musculoskeletal: muscle weakness, range of motion Extremities: normal pulses Lymph: nontender Results Result Diagram: 05/24/18 1009 05/26/18 0558 Results 24hrs Laboratory Tests Test 05/26/18 05:58 Sodium Level 148 H Potassium Level 5.2 H Chloride Level 113 H Carbon Dioxide Level 23 Anion Gap 12 Blood Urea Nitrogen 65 H Creatinine 1.32 H Est Glomerular Filtrat Rate mL/min 60 Glucose Level 112 Calcium Level 9.5 Medications Medication Current Medications IV Flush (NS 3 ml) 3 ml PER PROTOCOL IV ; Start 05/14/18 at 18:30 Lorazepam (Ativan) 0.5 mg Q6H PRN IV .ANXIETY Last administered on 05/20/18 22:26; Admin Dose 0.5 MG; Start 05/14/18 at 18:30 Ondansetron HCl (Zofran Inj) 4 mg Q6H PRN IV NAUSEA/VOMITING; Start 05/14/18 at 18:30 Acetaminophen/ Hydrocodone Bitart ([place] (5/325)) 1 tab Q6H PRN PO .PAIN 4-6; Start 05/14/18 at 18:30 Acetaminophen/ Hydrocodone Bitart ([place] (5/325)) 2 tab Q6H PRN PO .PAIN 7-10 Last administered on 05/24/18 08:15; Admin Dose 2 TAB; Start 05/14/18 at 18:30 Hydromorphone HCl (Dilaudid) 0.5 mg Q4H PRN IV .PAIN 7-10 Last administered on 05/26/18at 15:59; Admin Dose 0.5 MG; Start 05/14/18 at 18:30 Docusate Sodium (Colace) 100 mg Q12H PRN PO .CONSTIPATION; Start 05/14/18 at 18:30 Magnesium Hydroxide (Milk Of Mag) 30 ml DAILY PRN PO .CONSTIPATION; Start 05/14/18 at 18:30 Famotidine (Pepcid) 20 mg DAILY PO Last administered on 05/26/18at 07:59; Admin Dose 20 MG; Start 05/14/18 at 21:00 Enoxaparin Sodium (Lovenox) 30 mg DAILY SC Last administered on 05/26/18 08:02; Admin Dose 30 MG; Start 05/15/18 at 09:00 Miscellaneous Information (Pending Santyl Order For Wound Care) This patient noriega... PRN PRN XX WOUND CARE; Start 05/14/18 at 23:00 Acetaminophen (Tylenol Liquid) 650 mg Q6 PRN PO MILD PAIN(1-3)OR ELEVATED TEMP Last administered on 05/16/18at 21:13; Admin Dose 650 MG; Start 05/15/18 at 07:00 Albuterol (Ventolin Hfa) 4 puff Q6H RESP THERAPY INH Last administered on 05/26/18 13:37; Admin Dose 4 PUFF; Start 05/15/18 at 14:00 Ipratropium [place] (Atrovent Hfa) 4 puff Q6H RESP THERAPY INH Last administered on 05/26/18 13:37; Admin Dose 4 PUFF; Start 05/15/18 at 14:00 Collagenase (Santyl) 1 applic DAILY TOP Last administered on 05/26/18 07:58; Admin Dose 1 APPLIC; Start 05/15/18 at 13:00 Multivit/Ca Carb/ B Cmplx/FA/Prenat (Lilibeth-Linn) 1 tab DAILY GTB Last administered on 05/26/18 07:57; Admin Dose 1 TAB; Start 05/16/18 at 09:00 Zinc Sulfate (Zinc Sulfate) 220 mg DAILY GTB Last administered on 05/26/18 07:57; Admin Dose 220 MG; Start 05/16/18 at 09:00 Ascorbic Acid (Vitamin C) 250 mg DAILY GTB Last administered on 05/26/18 07:58; Admin Dose 250 MG; Start 05/16/18 at 09:00 Chlorhexidine Gluconate (Peridex) 15 ml Q12 MM Last administered on 05/26/18 07:58; Admin Dose 15 ML; Start 05/15/18 at 16:30 Levetiracetam (Keppra Liquid) 500 mg Q12 GTB Last administered on 05/26/18 08:12; Admin Dose 500 MG; Start 05/15/18 at 16:30 Quetiapine Fumarate (Seroquel) 50 mg BID GTB Last administered on 05/26/18 07:58; Admin Dose 50 MG; Start 05/15/18 at 21:00 IV Flush (NS 10 ml) 10 ml PRN PRN IV IV PROTOCOL; Start 05/15/18 at 18:30 Docusate Sodium (Colace Liquid Cup) 100 mg BID GTB Last administered on 05/26/18 07:58; Admin Dose 100 MG; Start 05/15/18 at 21:00 Sodium Polystyrene Sulfonate (Kayexalate) 15 gm ONCE ONCE GTB ; Start 05/26/18 at 18:00; Stop 05/26/18 at 18:01; Status NAE SULLIVAN May 26, 2018 17:40
[2018-05-26] MEDS ORDERED: NA POLYST SULFON 15 GM/60 ML BTL GTB ONE (18:00)
[2018-05-27] VITALS (24 sets, daily range): BP systolic 110–131; BP diastolic 65–88; PULSE 54–113; RESP 20–27
[2018-05-27] MEDS: IPRATROPIUM (HFA) 12.9 GM INHALER INH SCH ×4 (01:12→19:30)
[2018-05-27] MEDS: ALBUTEROL HFA 8 GM INHALER INH SCH ×4 (01:12→19:30)
[2018-05-27] MEDS: BALSAM PERU/CASTOR OIL 60 GM TUBE TOP SCH ×3 (01:19→21:40)
[2018-05-27] MEDS: HYDROmorphONE 0.5 MG/0.5 ML SYG IV PRN ×5 (01:20→19:34)
[2018-05-27] MEDS: LEVETIRACETAM (100 MG/ML) 5ML CUP GTB SCH ×2 (08:16→21:40)
[2018-05-27] MEDS: COLLAGENASE 5 GM (UD JAR) TOP SCH (08:16)
[2018-05-27] MEDS: MULTIVIT/CA CARB/B CMPLX/FA TAB GTB SCH (08:17)
[2018-05-27] MEDS: QUETIAPINE 25 MG TAB GTB SCH ×2 (08:17→21:39)
[2018-05-27] MEDS: ASCORBIC ACID 250 MG TAB GTB SCH (08:17)
[2018-05-27] MEDS: ZINC SULFATE 220 MG CAP GTB SCH (08:17)
[2018-05-27] MEDS: CHLORHEXIDINE GLUCONATE 15 ML UD CUP MM SCH ×2 (08:17→21:40)
[2018-05-27] MEDS: FAMOTIDINE 20 MG TAB PO SCH (08:17)
[2018-05-27] MEDS: DOCUSATE SODIUM 10 MG/ML (10ML CUP) GTB SCH ×2 (08:17→21:40)
[2018-05-27] MEDS: ENOXAPARIN 30 MG/0.3 ML SYG SC SCH (08:29)
--- NOTE | 2018-05-27 12:19 | PN ---
Date/Time of Note Date/Time of Note DATE: 05/27/18 TIME: 12:18 Assessment/Plan VTE Prophylaxis Risk score (from Ns)>0 risk: 4 SCD applied (from Ns): Yes Pharmacological prophylaxis: LMWH Lines/Catheters IV Catheter Type (from Nrs): PICC Line Central line still needed: Yes Assessment/Plan Hospital Course - S/p sepsis secondary to pneumonia, completed treatment with meropenem. Dr. Maciel is following in infection disease consultation. - Health care associated pneumonia - Proteus M UTI - Acute on chronic renal failure, continue IV fluids. Continue to monitor BUN and creatinine. Dr. Barker is following patient in nephrology consultation. - Ventilator dependent respiratory failure, continue pulmonary toilet and bronchodilators. Dr Ames is following in pulmonology consultation. - Neurogenic bladder with suprapubic catheter. - Left renal nephrolithiasis, hx of lithotripsy with insertion and subsequent removal of ureteral JJ stent. - Hx of right nephrectomy - Dysphagia with gastrostomy tube. - Multiple decubitus ulcers present on admission. Continue current care per wou nd consult recommendations, offloading air mattress, optimize nutrition. - Cervical spine injury with paraplegia. - Bipolar disorder with psychosis. Result Diagram: 05/24/18 1009 05/26/18 0558 Subjective 24 Hr Interval Summary Free Text/Dictation Patient is sedated, on vent Exam/Review of Systems Exam Vitals Vital Signs Date Temp Pulse Resp B/P (MAP) Pulse Ox O2 O2 Flow FiO2 Time Delivery Rate 05/27/18 98.5 92 20 112/65 96 12:13 (81) 05/27/18 30 05:26 05/23/18 Mechanical 20:00 Ventilator Intake and Output 05/26/18 05/26/18 05/27/18 1414:59 22:59 06:59 IntakeIntake Total 1400 ml 750 ml OutputOutput Total 1200 ml 1600 ml BalanceBalance 200 ml -850 ml Constitutional: well developed Head: normocephalic, atraumatic Neck: supple Respiratory: diminished breath sounds Cardiovascular: regular rate and rhythm Gastrointestinal: soft, non-tender Extremities: normal pulses Medications Medication Current Medications IV Flush (NS 3 ml) 3 ml PER PROTOCOL IV ; Start 05/14/18 at 18:30 Lorazepam (Ativan) 0.5 mg Q6H PRN IV .ANXIETY Last administered on 05/20/18 22:26; Admin Dose 0.5 MG; Start 05/14/18 at 18:30 Ondansetron HCl (Zofran Inj) 4 mg Q6H PRN IV NAUSEA/VOMITING; Start 05/14/18 at 18:30 Acetaminophen/ Hydrocodone Bitart ([place] (5/325)) 1 tab Q6H PRN PO .PAIN 4-6; Start 05/14/18 at 18:30 Acetaminophen/ Hydrocodone Bitart ([place] (5/325)) 2 tab Q6H PRN PO .PAIN 7-10 Last administered on 05/24/18 08:15; Admin Dose 2 TAB; Start 05/14/18 at 18:30 Hydromorphone HCl (Dilaudid) 0.5 mg Q4H PRN IV .PAIN 7-10 Last administered on 05/27/18 10:38; Admin Dose 0.5 MG; Start 05/14/18 at 18:30 Docusate Sodium (Colace) 100 mg Q12H PRN PO .CONSTIPATION; Start 05/14/18 at 18:30 Magnesium Hydroxide (Milk Of Mag) 30 ml DAILY PRN PO .CONSTIPATION; Start 05/14/18 at 18:30 Famotidine (Pepcid) 20 mg DAILY PO Last administered on 05/27/18 08:17; Admin Dose 20 MG; Start 05/14/18 at 21:00 Enoxaparin Sodium (Lovenox) 30 mg DAILY SC Last administered on 05/27/18 08:29; Admin Dose 30 MG; Start 05/15/18 at 09:00 [facility]iscellaneous [facility] This patient noriega... PRN PRN XX WOUND CARE; Start 05/14/18 at 23:00 Acetaminophen (Tylenol Liquid) 650 mg Q6 PRN PO MILD PAIN(1-3)OR ELEVATED TEMP Last administered on 05/16/18 21:13; Admin Dose 650 MG; Start 05/15/18 at 07:00 Albuterol (Ventolin Hfa) 4 puff Q6H RESP THERAPY INH Last administered on 05/27/18 08:55; Admin Dose 4 PUFF; Start 05/15/18 at 14:00 Ipratropium [place] (Atrovent Hfa) 4 puff Q6H RESP THERAPY INH Last administered on 05/27/18 08:55; Admin Dose 4 PUFF; Start 05/15/18 at 14:00 Collagenase (Santyl) 1 applic DAILY TOP Last administered on 05/27/18 08:16; Admin Dose 1 APPLIC; Start 05/15/18 at 13:00 Multivit/Ca Carb/ B Cmplx/FA/Prenat (Lilibeth-Linn) 1 tab DAILY GTB Last administered on 05/27/18 08:17; Admin Dose 1 TAB; Start 05/16/18 at 09:00 Zinc Sulfate (Zinc Sulfate) 220 mg DAILY GTB Last administered on 05/27/18 08 :17; Admin Dose 220 MG; Start 05/16/18 at 09:00 Ascorbic Acid (Vitamin C) 250 mg DAILY GTB Last administered on 05/27/18 08:17; Admin Dose 250 MG; Start 05/16/18 at 09:00 Chlorhexidine Gluconate (Peridex) 15 ml Q12 MM Last administered on 05/27/18 08:17; Admin Dose 15 ML; Start 05/15/18 at 16:30 Levetiracetam (Keppra Liquid) 500 mg Q12 GTB Last administered on 05/27/18 08:16; Admin Dose 500 MG; Start 05/15/18 at 16:30 Quetiapine Fumarate (Seroquel) 50 mg BID GTB Last administered on 05/27/18 08:17; Admin Dose 50 MG; Start 05/15/18 at 21:00 IV Flush (NS 10 ml) 10 ml PRN PRN IV IV PROTOCOL; Start 05/15/18 at 18:30 Docusate Sodium (Colace Liquid Cup) 100 mg BID GTB Last administered on 08:17; Admin Dose 100 MG; Start 05/15/18 at 21:00 DANAY MUIR May 27, 2018 12:19
--- NOTE | 2018-05-27 16:52 | CONS ---
Consultation Date/Type/Reason Admit Date/Time May 14, 2018 at 18:34 Initial Consult Date SUBJECTIVE: Pt is sleeping, no fevers. No acute events over night. Vs: stable T: 98.6 LABS: Reviewed. Microbiology: Urine culture grew Proteus mirabilis, sputum culture growing further dentia, blood culture grew staph sp. 1 out of 2 sets Indwelling: Trach, PEG, PICC line, suprapubic catheter Allergies: Tetracycline Antimicrobials: completed Physical examination: GEN: Chronically ill-appearing middle-aged man who is in no distress. HENT: Head atraumatic normocephalic, neck is supple PULM: chest rise symmetrical, breath sounds diminished bases. Heart: S1-S2. Abdomen soft bowel sounds present. Extremities wasted without cyanosis Assessment: 1. S/p severe sepsis with shock 2. Bacteremia, cw contaminant 2. S/p healthcare associated pneumonia 3. Urinary tract infection 4. Chronic respiratory failure and dysphagia 5. Acute on chronic kidney disease 6. Neurogenic bladder status post suprapubic catheter placement 7. Incomplete quadriplegia 8. History of nephrectomy 9. History of scabies 10. Multiple chronic wounds Plan: Patient remains stable. Continue observing off abx. Requesting Provider: JOSÉ ANTONIO MIRZA MD Date/Time of Note DATE: 05/27/18 TIME: 16:51 Exam/Review of Systems Exam Vitals Vital Signs Date Temp Pulse Resp B/P (MAP) Pulse Ox O2 O2 Flow FiO2 Time Delivery Rate 05/27/18 98.6 54 20 120/87 98 16:25 (98) 05/27/18 30 05:26 05/23/18 Mechanical 20:00 Ventilator Intake and Output 05/26/18 05/26/18 05/27/18 1515:00 23:00 07:00 IntakeIntake Total 1400 ml 750 ml OutputOutput Total 1200 ml 1600 ml BalanceBalance 200 ml -850 ml Results Result Diagram: 05/24/18 1009 05/26/18 0558 Medications Medication Current Medications IV Flush (NS 3 ml) 3 ml PER PROTOCOL IV ; Start 05/14/18 at 18:30 Lorazepam (Ativan) 0.5 mg Q6H PRN IV .ANXIETY Last administered on 05/20/18at 22:26; Admin Dose 0.5 MG; Start 05/14/18 at 18:30 Ondansetron HCl (Zofran Inj) 4 mg Q6H PRN IV NAUSEA/VOMITING; Start 05/14/18 at 18:30 Acetaminophen/ Hydrocodone Bitart ([place] (5/325)) 1 tab Q6H PRN PO .PAIN 4-6; Start 05/14/18 at 18:30 Acetaminophen/ Hydrocodone Bitart ([place] (5/325)) 2 tab Q6H PRN PO .PAIN 7-10 Last administered on 05/24/18 08:15; Admin Dose 2 TAB; Start 05/14/18 at 18:30 Hydromorphone HCl (Dilaudid) 0.5 mg Q4H PRN IV .PAIN 7-10 Last administered on 05/27/18 14:41; Admin Dose 0.5 MG; Start 05/14/18 at 18:30 Docusate Sodium (Colace) 100 mg Q12H PRN PO .CONSTIPATION; Start 05/14/18 at 18:30 Magnesium Hydroxide (Milk Of Mag) 30 ml DAILY PRN PO .CONSTIPATION; Start 05/14/18 at 18:30 Famotidine (Pepcid) 20 mg DAILY PO Last administered on 05/27/18 08:17; Admin Dose 20 MG; Start 05/14/18 at 21:00 Enoxaparin Sodium (Lovenox) 30 mg DAILY SC Last administered on 05/27/18 08:29; Admin Dose 30 MG; Start 05/15/18 at 09:00 Miscellaneous Information (Pending Santyl Order For Wound Care) This patient noriega... PRN PRN XX WOUND CARE; Start 05/14/18 at 23:00 Acetaminophen (Tylenol Liquid) 650 mg Q6 PRN PO MILD PAIN(1-3)OR ELEVATED TEMP Last administered on 05/16/18 21:13; Admin Dose 650 MG; Start 05/15/18 at 07:00 Albuterol (Ventolin Hfa) 4 puff Q6H RESP THERAPY INH Last administered on 05/27/18 13:19; Admin Dose 4 PUFF; Start 05/15/18 at 14:00 Ipratropium [place] (Atrovent Hfa) 4 puff Q6H RESP THERAPY INH Last administered on 05/27/18 13:18; Admin Dose 4 PUFF; Start 05/15/18 at 14:00 Collagenase (Santyl) 1 applic DAILY TOP Last administered on 05/27/18 08:16; Admin Dose 1 APPLIC; Start 05/15/18 at 13:00 Multivit/Ca Carb/ B Cmplx/FA/Prenat ([place]) 1 tab DAILY GTB Last administered on 05/27/18 08:17; Admin Dose 1 TAB; Start 05/16/18 at 09:00 Zinc Sulfate (Zinc Sulfate) 220 mg DAILY GTB Last administered on 05/27/18 08:17; Admin Dose 220 MG; Start 05/16/18 at 09:00 Ascorbic Acid (Vitamin C) 250 mg DAILY GTB Last administered on 05/27/18 08:17; Admin Dose 250 MG; Start 05/16/18 at 09:00 Chlorhexidine Gluconate (Peridex) 15 ml Q12 MM Last administered on 05/27/18 08:17; Admin Dose 15 ML; Start 05/15/18 at 16:30 Levetiracetam (Keppra Liquid) 500 mg Q12 GTB Last administered on 05/27/18 08:16; Admin Dose 500 MG; Start 05/15/18 at 16:30 Quetiapine Fumarate (Seroquel) 50 mg BID GTB Last administered on 05/27/18 08:17; Admin Dose 50 MG; Start 05/15/18 at 21:00 IV Flush (NS 10 ml) 10 ml PRN PRN IV IV PROTOCOL; Start 05/15/18 at 18:30 Docusate Sodium (Colace Liquid Cup) 100 mg BID GTB Last administered on 05/27/18 08:17; Admin Dose 100 MG; Start 05/15/18 at 21:00 ADELAIDA PEREZ May 27, 2018 16:52
--- NOTE | 2018-05-27 17:37 | CONS ---
Assessment/Plan Assessment/Plan Assessment/Plan (Daily) -Hyperkalemia- as of 05/26/2018 1. Acute on chronic renal failure 2. Hypernatremia- Mild 3. UTI 4. history of paraplegia secondary to cervical spine injury, ventilator dependent respiratory failure with striking ostomy, dysphagia with G-tube, neurogenic bladder with suprapubic catheter, right nephrectomy, left renal renal nephrolithiasis with history of lithotripsy and stent placement and urethral stent removal, history of bipolar disorder Plan: BUN/Cr - 65/1.32 Na 148, K 5.2- if Na continues to trend up AM labs tomorrow then we will consider IVF D5W s/p IV abx now, monitor electrolytes and replace as needed will follow up Patient seen in collaboration with Dr Paul Barker. dw staff Consultation Date/Type/Reason Admit Date/Time May 14, 2018 at 6:34 pm Initial Consult Date 05/15/18 Type of Consult NEPHROLOGY Requesting Provider: JOSÉ ANTONIO MIRZA MD Date/Time of Note DATE: 05/27/18 TIME: 17:28 Exam/Review of Systems Exam Vitals Vital Signs Date Temp Pulse Resp B/P (MAP) Pulse Ox O2 O2 Flow FiO2 Time Delivery Rate 05/27/18 98.6 54 20 120/87 98 16:25 (98) 05/27/18 30 05:26 05/23/18 Mechanical 20:00 Ventilator Intake and Output 05/26/18 05/26/18 05/27/18 1515:00 23:00 07:00 IntakeIntake Total 1400 ml 750 ml OutputOutput Total 1200 ml 1600 ml BalanceBalance 200 ml -850 ml Constitutional: alert, non-verbal, frail Psych: nl mood/affect Eyes: nl lids, nl sclera ENMT: nl external ears & nose Neck: non-tender, other (trach intact) Respiratory: clear to auscultation Cardiovascular: nl pulses, other (s1s2) Gastrointestinal: soft, non-tender Musculoskeletal: muscle weakness, range of motion Extremities: normal pulses Neurological: other (alert/resposive) Skin: other (decubs) Lymph: nontender Results Result Diagram: 05/24/18 1009 05/26/18 0558 Medications Medication Current Medications IV Flush (NS 3 ml) 3 ml PER PROTOCOL IV ; Start 05/14/18 at 18:30 Lorazepam (Ativan) 0.5 mg Q6H PRN IV .ANXIETY Last administered on 05/20/18 22:26; Admin Dose 0.5 MG; Start 05/14/18 at 18:30 Ondansetron HCl (Zofran Inj) 4 mg Q6H PRN IV NAUSEA/VOMITING; Start 05/14/18 at 18:30 Acetaminophen/ Hydrocodone Bitart ([place] (5/325)) 1 tab Q6H PRN PO .PAIN 4-6; Start 05/14/18 at 18:30 Acetaminophen/ Hydrocodone Bitart ([place] (5/325)) 2 tab Q6H PRN PO .PAIN 7-10 Last administered on 05/24/18 08:15; Admin Dose 2 TAB; Start 05/14/18 at 18:30 Hydromorphone HCl (Dilaudid) 0.5 mg Q4H PRN IV .PAIN 7-10 Last administered on 05/27/18 14:41; Admin Dose 0.5 MG; Start 05/14/18 at 18:30 Docusate Sodium (Colace) 100 mg Q12H PRN PO .CONSTIPATION; Start 05/14/18 at 18:30 Magnesium Hydroxide (Milk Of Mag) 30 ml DAILY PRN PO .CONSTIPATION; Start 05/14/18 at 18:30 Famotidine (Pepcid) 20 mg DAILY PO Last administered on 05/27/18 08:17; Admin Dose 20 MG; Start 05/14/18 at 21:00 Enoxaparin Sodium (Lovenox) 30 mg DAILY SC Last administered on 05/27/18 08:29; Admin Dose 30 MG; Start 05/15/18 at 09:00 [facility] This patient noriega... PRN PRN XX WOUND CARE; Start 05/14/18 at 23:00 Acetaminophen (Tylenol Liquid) 650 mg Q6 PRN PO MILD PAIN(1-3)OR ELEVATED TEMP Last administered on 05/16/18 21:13; Admin Dose 650 MG; Start 05/15/18 at 07:00 Albuterol (Ventolin Hfa) 4 puff Q6H RESP THERAPY INH Last administered on 05/27/18 13:19; Admin Dose 4 PUFF; Start 05/15/18 at 14:00 Ipratropium [place] (Atrovent Hfa) 4 puff Q6H RESP THERAPY INH Last administered on 05/27/18 13:18; Admin Dose 4 PUFF; Start 05/15/18 at 14:00 Collagenase (Santyl) 1 applic DAILY TOP Last administered on 05/27/18 08:16; Admin Dose 1 APPLIC; Start 05/15/18 at 13:00 Multivit/Ca Carb/ B Cmplx/FA/Prenat ([place]ilib[place]-L[place]) 1 tab DAILY GTB Last administered on 05/27/18 08:17; Admin Dose 1 TAB; Start 05/16/18 at 09:00 Zinc Sulfate (Zinc Sulfate) 220 mg DAILY GTB Last administered on 05/27/18 08:17; Admin Dose 220 MG; Start 05/16/18 at 09:00 Ascorbic Acid (Vitamin C) 250 mg DAILY GTB Last administered on 05/27/18 08:17; Admin Dose 250 MG; Start 05/16/18 at 09:00 Chlorhexidine Gluconate (Peridex) 15 ml Q12 MM Last administered on 05/27/18 08:17; Admin Dose 15 ML; Start 05/15/18 at 16:30 Levetiracetam (Keppra Liquid) 500 mg Q12 GTB Last administered on 05/27/18 08:16; Admin Dose 500 MG; Start 05/15/18 at 16:30 Quetiapine Fumarate (Seroquel) 50 mg BID GTB Last administered on 05/27/18 08:17; Admin Dose 50 MG; Start 05/15/18 at 21:00 IV Flush (NS 10 ml) 10 ml PRN PRN IV IV PROTOCOL; Start 05/15/18 at 18:30 Docusate Sodium (Colace Liquid Cup) 100 mg BID GTB Last administered on 05/27/18 08:17; Admin Dose 100 MG; Start 05/15/18 at 21:00 NAE VELAZCO May 27, 2018 17:37
[2018-05-28] VITALS (22 sets, daily range): BP systolic 103–164; BP diastolic 65–98; PULSE 98–121; RESP 18–33
[2018-05-28] MEDS: ALBUTEROL HFA 8 GM INHALER INH SCH ×4 (01:56→20:55)
[2018-05-28] MEDS: IPRATROPIUM (HFA) 12.9 GM INHALER INH SCH ×4 (01:56→20:55)
[2018-05-28] MEDS: HYDROmorphONE 0.5 MG/0.5 ML SYG IV PRN ×4 (02:43→20:51)
[2018-05-28] MEDS: ENOXAPARIN 30 MG/0.3 ML SYG SC SCH (08:48)
[2018-05-28] MEDS: COLLAGENASE 5 GM (UD JAR) TOP SCH (08:49)
[2018-05-28] MEDS: CHLORHEXIDINE GLUCONATE 15 ML UD CUP MM SCH ×2 (08:49→20:52)
[2018-05-28] MEDS: DOCUSATE SODIUM 10 MG/ML (10ML CUP) GTB SCH ×2 (08:49→20:51)
[2018-05-28] MEDS: LEVETIRACETAM (100 MG/ML) 5ML CUP GTB SCH ×2 (08:49→20:51)
[2018-05-28] MEDS: ASCORBIC ACID 250 MG TAB GTB SCH (08:50)
[2018-05-28] MEDS: QUETIAPINE 25 MG TAB GTB SCH ×2 (08:50→20:51)
[2018-05-28] MEDS: ZINC SULFATE 220 MG CAP GTB SCH (08:50)
[2018-05-28] MEDS: MULTIVIT/CA CARB/B CMPLX/FA TAB GTB SCH (08:50)
[2018-05-28] MEDS: FAMOTIDINE 20 MG TAB PO SCH (08:51)
[2018-05-28] MEDS: BALSAM PERU/CASTOR OIL 60 GM TUBE TOP SCH ×2 (08:52→20:52)
--- NOTE | 2018-05-28 13:00 | PN ---
Date/Time of Note Date/Time of Note DATE: 05/28/18 TIME: 13:00 Assessment/Plan VTE Prophylaxis Risk score (from Ns)>0 risk: 3 SCD applied (from Ns): Yes Pharmacological prophylaxis: LMWH Lines/Catheters IV Catheter Type (from [facility]): PICC Line Central line still needed: Yes Assessment/Plan Hospital Course - S/p sepsis secondary to pneumonia, completed treatment with meropenem. Dr. Maciel is following in infection disease consultation. - Health care associated pneumonia - Proteus M UTI - Acute on chronic renal failure, continue IV fluids. Continue to monitor BUN and creatinine. Dr. Barker is following patient in nephrology consultation. - Ventilator dependent respiratory failure, continue pulmonary toilet and bronchodilators. Dr Ames is following in pulmonology consultation. - Neurogenic bladder with suprapubic catheter. - Left renal nephrolithiasis, hx of lithotripsy with insertion and subsequent removal of ureteral JJ stent. - Hx of right nephrectomy - Dysphagia with gastrostomy tube. - Multiple decubitus ulcers present on admission. Continue current care per wou nd consult recommendations, offloading air mattress, optimize nutrition. - Cervical spine injury with paraplegia. - Bipolar disorder with psychosis. Result Diagram: 05/28/18 0545 05/28/18 0601 Results 24hrs Laboratory Tests Test 05/27/18 17:59 05/28/18 05:45 05/28/18 06:01 White Blood Count 5.1 # 5.2 Red Blood Count 2.68 L 2.96 L Hemoglobin 7.8 L 8.5 L Hematocrit 26.0 L 28.3 L Mean Corpuscular Volume 97.0 95.6 Mean Corpuscular Hemoglobin 29.1 28.7 L Mean Corpuscular Hemoglobin Concent 30.0 L 30.0 L Red Cell Distribution Width 16.9 H 17.2 H Platelet Count 157 153 Mean Platelet Volume 12.3 H 12.6 H Immature Granulocytes % 0.200 0.400 Neutrophils % 68.9 75.0 Lymphocytes % 17.9 14.7 L Monocytes % 7.3 5.7 Eosinophils % 4.9 3.6 Basophils % 0.8 0.6 Nucleated Red Blood Cells % 0.0 0.0 Immature Granulocytes # 0.010 0.020 Neutrophils # 3.5 3.9 Lymphocytes # 0.9 0.8 Monocytes # 0.4 0.3 Eosinophils # 0.3 0.2 Basophils # 0.0 0.0 Nucleated Red Blood Cells # 0.0 0.0 Sodium Level 146 H 145 H Potassium Level 5.0 5.3 H Chloride Level 110 110 Carbon Dioxide Level 23 22 Anion Gap 13 13 Blood Urea Nitrogen 76 H 82 H Creatinine 1.41 H 1.42 H Est Glomerular Filtrat Rate mL/min 55 L 55 L Glucose Level 96 103 Calcium Level 9.4 9.5 Subjective 24 Hr Interval Summary Free Text/Dictation Patient is resting, on vent via trach Exam/Review of Systems Exam Vitals Vital Signs Date Temp Pulse Resp B/P (MAP) Pulse Ox O2 O2 Flow FiO2 Time Delivery Rate 05/28/18 98.5 119 20 103/65 96 11:40 (78) 05/28/18 30 11:10 Intake and Output 05/27/18 05/27/18 05/28/18 1515:00 23:00 07:00 IntakeIntake Total 1950 ml 740 ml OutputOutput Total 1200 ml 1700 ml BalanceBalance 750 ml -960 ml Constitutional: well developed Head: normocephalic, atraumatic Neck: supple Respiratory: diminished breath sounds Cardiovascular: regular rate and rhythm Gastrointestinal: soft, non-tender Extremities: normal pulses Results Results 24hrs Laboratory Tests Test 05/27/18 17:59 05/28/18 05:45 05/28/18 06:01 White Blood Count 5.1 # 5.2 Red Blood Count 2.68 L 2.96 L Hemoglobin 7.8 L 8.5 L Hematocrit 26.0 L 28.3 L Mean Corpuscular Volume 97.0 95.6 Mean Corpuscular Hemoglobin 29.1 28.7 L Mean Corpuscular Hemoglobin Concent 30.0 L 30.0 L Red Cell Distribution Width 16.9 H 17.2 H Platelet Count 157 153 Mean Platelet Volume 12.3 H 12.6 H Immature Granulocytes % 0.200 0.400 Neutrophils % 68.9 75.0 Lymphocytes % 17.9 14.7 L Monocytes % 7.3 5.7 Eosinophils % 4.9 3.6 Basophils % 0.8 0.6 Nucleated Red Blood Cells % 0.0 0.0 Immature Granulocytes # 0.010 0.020 Neutrophils # 3.5 3.9 Lymphocytes # 0.9 0.8 Monocytes # 0.4 0.3 Eosinophils # 0.3 0.2 Basophils # 0.0 0.0 Nucleated Red Blood Cells # 0.0 0.0 Sodium Level 146 H 145 H Potassium Level 5.0 5.3 H Chloride Level 110 110 Carbon Dioxide Level 23 22 Anion Gap 13 13 Blood Urea Nitrogen 76 H 82 H Creatinine 1.41 H 1.42 H Est Glomerular Filtrat Rate mL/min 55 L 55 L Glucose Level 96 103 Calcium Level 9.4 9.5 Medications Medication Current Medications IV Flush (NS 3 ml) 3 ml PER PROTOCOL IV ; Start 05/14/18 at 18:30 Lorazepam (Ativan) 0.5 mg Q6H PRN IV .ANXIETY Last administered on 05/20/18at 22:26; Admin Dose 0.5 MG; Start 05/14/18 at 18:30 Ondansetron HCl (Zofran Inj) 4 mg Q6H PRN IV NAUSEA/VOMITING; Start 05/14/18 at 18:30 Acetaminophen/ Hydrocodone Bitart ([place] (5/325)) 1 tab Q6H PRN PO .PAIN 4-6; Start 05/14/18 at 18:30 Acetaminophen/ Hydrocodone Bitart ([place] (5/325)) 2 tab Q6H PRN PO .PAIN 7-10 Last administered on 05/24/18at 08:15; Admin Dose 2 TAB; Start 05/14/18 at 18:30 Hydromorphone HCl (Dilaudid) 0.5 mg Q4H PRN IV .PAIN 7-10 Last administered on 05/28/18at 08:53; Admin Dose 0.5 MG; Start 05/14/18 at 18:30 Docusate Sodium (Colace) 100 mg Q12H PRN PO .CONSTIPATION; Start 05/14/18 at 18:30 Magnesium Hydroxide (Milk Of Mag) 30 ml DAILY PRN PO .CONSTIPATION; Start 05/14/18 at 18:30 Famotidine (Pepcid) 20 mg DAILY PO Last administered on 05/28/18at 08:51; Admin Dose 20 MG; Start 05/14/18 at 21:00 Enoxaparin Sodium (Lovenox) 30 mg DAILY SC Last administered on 05/28/18at 08:48; Admin Dose 30 MG; Start 05/15/18 at 09:00 Miscellaneous Information (Pending Santyl Order For Wound Care) This patient noriega... PRN PRN XX WOUND CARE; Start 05/14/18 at 23:00 Acetaminophen (Tylenol Liquid) 650 mg Q6 PRN PO MILD PAIN(1-3)OR ELEVATED TEMP Last administered on 05/16/18 21:13; Admin Dose 650 MG; Start 05/15/18 at 07:00 Albuterol (Ventolin Hfa) 4 puff Q6H RESP THERAPY INH Last administered on 05/28/18 07:37; Admin Dose 4 PUFF; Start 05/15/18 at 14:00 Ipratropium [place] (Atrovent Hfa) 4 puff Q6H RESP THERAPY INH Last administered on 05/28/18 07:36; Admin Dose 4 PUFF; Start 05/15/18 at 14:00 Collagenase (Santyl) 1 applic DAILY TOP Last administered on 05/28/18 08:49; Admin Dose 1 APPLIC; Start 05/15/18 at 13:00 Multivit/Ca Carb/ B Cmplx/FA/Prenat (Lilibeth-Linn) 1 tab DAILY GTB Last administered on 05/28/18 08:50; Admin Dose 1 TAB; Start 05/16/18 at 09:00 Zinc Sulfate (Zinc Sulfate) 220 mg DAILY GTB Last administered on 05/28/18 08:50; Admin Dose 220 MG; Start 05/16/18 at 09:00 Ascorbic Acid (Vitamin C) 250 mg DAILY GTB Last administered on 05/28/18 08:50; Admin Dose 250 MG; Start 05/16/18 at 09:00 Chlorhexidine Gluconate (Peridex) 15 ml Q12 MM Last administered on 05/28/18 08:49; Admin Dose 15 ML; Start 05/15/18 at 16:30 Levetiracetam (Keppra Liquid) 500 mg Q12 GTB Last administered on 05/28/18 08:49; Admin Dose 500 MG; Start 05/15/18 at 16:30 Quetiapine Fumarate (Seroquel) 50 mg BID GTB Last administered on 05/28/18 08:50; Admin Dose 50 MG; Start 05/15/18 at 21:00 IV Flush (NS 10 ml) 10 ml PRN PRN IV IV PROTOCOL; Start 05/15/18 at 18:30 Docusate Sodium (Colace Liquid Cup) 100 mg BID GTB Last administered on 05/28/18at 08:49; Admin Dose 100 MG; Start 05/15/18 at 21:00 DANAY MUIR May 28, 2018 13:00
--- NOTE | 2018-05-28 14:31 | CONS ---
Assessment/Plan Assessment/Plan Hospital Course (Demo Recall) No acute changes, afebrile, nad Microbiology: Urine culture grew Proteus mirabilis, sputum culture growing further dentia, blood culture grew staph sp. 1 out of 2 sets Indwelling: Trach, PEG, PICC line, suprapubic catheter Allergies: Tetracycline Antimicrobials: completed Physical examination: Chronically ill-appearing middle-aged man who is in no distress. Head atraumatic normocephalic neck is supple chest rise symmetrical breath sounds diminished bases. Heart: S1-S2. Abdomen soft bowel sounds present. Extremities wasted without cyanosis Assessment: 1. S/p severe sepsis with shock 2. Bacteremia, cw contaminant 2. S/p healthcare associated pneumonia 3. S/p Urinary tract infection 4. Chronic respiratory failure and dysphagia 5. Acute on chronic kidney disease 6. Neurogenic bladder status post suprapubic catheter placement 7. Incomplete quadriplegia 8. History of nephrectomy 9. History of scabies 10. Multiple chronic wounds Plan: Remains stable, continue observing off abx Consultation Date/Type/Reason Admit Date/Time May 14, 2018 at 18:34 Initial Consult Date 05/15/18 Type of Consult id Requesting Provider: JOSÉ ANTONIO MIRZA MD Date/Time of Note DATE: 05/28/18 TIME: 14:30 Exam/Review of Systems Exam Vitals Vital Signs Date Temp Pulse Resp B/P (MAP) Pulse Ox O2 O2 Flow FiO2 Time Delivery Rate 05/28/18 98.5 119 20 103/65 96 11:40 (78) 05/28/18 30 11:10 Intake and Output 05/27/18 05/27/18 05/28/18 1414:59 22:59 06:59 IntakeIntake Total 1950 ml 740 ml OutputOutput Total 1200 ml 1700 ml BalanceBalance 750 ml -960 ml Results Result Diagram: 05/28/18 0545 05/28/18 0601 Results 24hrs Laboratory Tests Test 05/27/18 17:59 05/28/18 05:45 05/28/18 06:01 White Blood Count 5.1 # 5.2 Red Blood Count 2.68 L 2.96 L Hemoglobin 7.8 L 8.5 L Hematocrit 26.0 L 28.3 L Mean Corpuscular Volume 97.0 95.6 Mean Corpuscular Hemoglobin 29.1 28.7 L Mean Corpuscular Hemoglobin Concent 30.0 L 30.0 L Red Cell Distribution Width 16.9 H 17.2 H Platelet Count 157 153 Mean Platelet Volume 12.3 H 12.6 H Immature Granulocytes % 0.200 0.400 Neutrophils % 68.9 75.0 Lymphocytes % 17.9 14.7 L Monocytes % 7.3 5.7 Eosinophils % 4.9 3.6 Basophils % 0.8 0.6 Nucleated Red Blood Cells % 0.0 0.0 Immature Granulocytes # 0.010 0.020 Neutrophils # 3.5 3.9 Lymphocytes # 0.9 0.8 Monocytes # 0.4 0.3 Eosinophils # 0.3 0.2 Basophils # 0.0 0.0 Nucleated Red Blood Cells # 0.0 0.0 Sodium Level 146 H 145 H Potassium Level 5.0 5.3 H Chloride Level 110 110 Carbon Dioxide Level 23 22 Anion Gap 13 13 Blood Urea Nitrogen 76 H 82 H Creatinine 1.41 H 1.42 H Est Glomerular Filtrat Rate mL/min 55 L 55 L Glucose Level 96 103 Calcium Level 9.4 9.5 Medications Medication Current Medications IV Flush (NS 3 ml) 3 ml PER PROTOCOL IV ; Start 05/14/18 at 18:30 Lorazepam (Ativan) 0.5 mg Q6H PRN IV .ANXIETY Last administered on 05/20/18at 22:26; Admin Dose 0.5 MG; Start 05/14/18 at 18:30 Ondansetron HCl (Zofran Inj) 4 mg Q6H PRN IV NAUSEA/VOMITING; Start 05/14/18 at 18:30 Acetaminophen/ Hydrocodone Bitart ([place] (5/325)) 1 tab Q6H PRN PO .PAIN 4-6; Start 05/14/18 at 18:30 Acetaminophen/ Hydrocodone Bitart ([place] (5/325)) 2 tab Q6H PRN PO .PAIN 7-10 Last administered on 05/24/18at 08:15; Admin Dose 2 TAB; Start 05/14/18 at 18:30 Hydromorphone HCl (Dilaudid) 0.5 mg Q4H PRN IV .PAIN 7-10 Last administered on 05/28/18at 14:28; Admin Dose 0.5 MG; Start 05/14/18 at 18:30 Docusate Sodium (Colace) 100 mg Q12H PRN PO .CONSTIPATION; Start 05/14/18 at 18:30 Magnesium Hydroxide (Milk Of Mag) 30 ml DAILY PRN PO .CONSTIPATION; Start 05/14/18 at 18:30 Famotidine (Pepcid) 20 mg DAILY PO Last administered on 05/28/18 08:51; Admin Dose 20 MG; Start 05/14/18 at 21:00 Enoxaparin Sodium (Lovenox) 30 mg DAILY SC Last administered on 05/28/18 08:4 8; Admin Dose 30 MG; Start 05/15/18 at 09:00 Miscellaneous Information (Pending Santyl Order For Wound Care) This patient noriega... PRN PRN XX WOUND CARE; Start 05/14/18 at 23:00 Acetaminophen (Tylenol Liquid) 650 mg Q6 PRN PO MILD PAIN(1-3)OR ELEVATED TEMP Last administered on 05/16/18 21:13; Admin Dose 650 MG; Start 05/15/18 at 07:00 Albuterol (Ventolin Hfa) 4 puff Q6H RESP THERAPY INH Last administered on 05/28/18 13:38; Admin Dose 4 PUFF; Start 05/15/18 at 14:00 Ipratropium [place] (Atrovent Hfa) 4 puff Q6H RESP THERAPY INH Last administered on 05/28/18 13:37; Admin Dose 4 PUFF; Start 05/15/18 at 14:00 Collagenase (Santyl) 1 applic DAILY TOP Last administered on 05/28/18 08:49; Admin Dose 1 APPLIC; Start 05/15/18 at 13:00 Multivit/Ca Carb/ B Cmplx/FA/Prenat (Lilibeth-Linn) 1 tab DAILY GTB Last administered on 05/28/18 08:50; Admin Dose 1 TAB; Start 05/16/18 at 09:00 Zinc Sulfate (Zinc Sulfate) 220 mg DAILY GTB Last administered on 05/28/18 08:50; Admin Dose 220 MG; Start 05/16/18 at 09:00 Ascorbic Acid (Vitamin C) 250 mg DAILY GTB Last administered on 05/28/18 08:50; Admin Dose 250 MG; Start 05/16/18 at 09:00 Chlorhexidine Gluconate (Peridex) 15 ml Q12 MM Last administered on 05/28/18 08:49; Admin Dose 15 ML; Start 05/15/18 at 16:30 Levetiracetam (Keppra Liquid) 500 mg Q12 GTB Last administered on 05/28/18 08:49; Admin Dose 500 MG; Start 05/15/18 at 16:30 Quetiapine Fumarate (Seroquel) 50 mg BID GTB Last administered on 05/28/18 08:50; Admin Dose 50 MG; Start 05/15/18 at 21:00 IV Flush (NS 10 ml) 10 ml PRN PRN IV IV PROTOCOL; Start 05/15/18 at 18:30 Docusate Sodium (Colace Liquid Cup) 100 mg BID GTB Last administered on 05/28/18 08:49; Admin Dose 100 MG; Start 05/15/18 at 21:00 REGINALDO CHERY NP May 28, 2018 14:31
--- NOTE | 2018-05-28 18:11 | CONS ---
Assessment/Plan Assessment/Plan Assessment/Plan (Daily) 1. Acute on chronic renal failure 2. Hypernatremia- Mild 3. UTI 4. history of paraplegia secondary to cervical spine injury, ventilator dependent respiratory failure with striking ostomy, dysphagia with G-tube, neurogenic bladder with suprapubic catheter, right nephrectomy, left renal renal nephrolithiasis with history of lithotripsy and stent placement and urethral stent removal, history of bipolar disorder 5. acute hyperkalemia Plan: BUN/Cr - 81/1.42, K 5.3- kayexalate given s/p IV abx now, monitor electrolytes and replace as needed will follow up Consultation Date/Type/Reason Admit Date/Time May 14, 2018 at 18:34 Initial Consult Date 05/15/18 Type of Consult NEPHROLOGY Requesting Provider: JOSÉ ANTONIO MIRZA MD Date/Time of Note DATE: 05/28/18 TIME: 18:10 Exam/Review of Systems Exam Vitals Vital Signs Date Temp Pulse Resp B/P (MAP) Pulse Ox O2 O2 Flow FiO2 Time Delivery Rate 05/28/18 106 22 100 30 17:15 05/28/18 98.5 133/96 15:38 (108) Intake and Output 05/27/18 05/27/18 05/28/18 1515:00 23:00 07:00 IntakeIntake Total 1950 ml 740 ml OutputOutput Total 1200 ml 1700 ml BalanceBalance 750 ml -960 ml Results Result Diagram: 05/28/18 0545 05/28/18 0601 Results 24hrs Laboratory Tests Test 05/28/18 05:45 05/28/18 06:01 White Blood Count 5.2 Red Blood Count 2.96 L Hemoglobin 8.5 L Hematocrit 28.3 L Mean Corpuscular Volume 95.6 Mean Corpuscular Hemoglobin 28.7 L Mean Corpuscular Hemoglobin Concent 30.0 L Red Cell Distribution Width 17.2 H Platelet Count 153 Mean Platelet Volume 12.6 H Immature Granulocytes % 0.400 Neutrophils % 75.0 Lymphocytes % 14.7 L Monocytes % 5.7 Eosinophils % 3.6 Basophils % 0.6 Nucleated Red Blood Cells % 0.0 Immature Granulocytes # 0.020 Neutrophils # 3.9 Lymphocytes # 0.8 Monocytes # 0.3 Eosinophils # 0.2 Basophils # 0.0 Nucleated Red Blood Cells # 0.0 Sodium Level 145 H Potassium Level 5.3 H Chloride Level 110 Carbon Dioxide Level 22 Anion Gap 13 Blood Urea Nitrogen 82 H Creatinine 1.42 H Est Glomerular Filtrat Rate mL/min 55 L Glucose Level 103 Calcium Level 9.5 Medications Medication Current Medications IV Flush (NS 3 ml) 3 ml PER PROTOCOL IV ; Start 05/14/18 at 18:30 Lorazepam (Ativan) 0.5 mg Q6H PRN IV .ANXIETY Last administered on 05/20/18at 22:26; Admin Dose 0.5 MG; Start 05/14/18 at 18:30 Ondansetron HCl (Zofran Inj) 4 mg Q6H PRN IV NAUSEA/VOMITING; Start 05/14/18 at 18:30 Acetaminophen/ Hydrocodone Bitart ([place] (5/325)) 1 tab Q6H PRN PO .PAIN 4-6; Start 05/14/18 at 18:30 Acetaminophen/ Hydrocodone Bitart ([place] (5/325)) 2 tab Q6H PRN PO .PAIN 7-10 Last administered on 05/24/18at 08:15; Admin Dose 2 TAB; Start 05/14/18 at 18:30 Hydromorphone HCl (Dilaudid) 0.5 mg Q4H PRN IV .PAIN 7-10 Last administered on 05/28/18at 14:28; Admin Dose 0.5 MG; Start 05/14/18 at 18:30 Docusate Sodium (Colace) 100 mg Q12H PRN PO .CONSTIPATION; Start 05/14/18 at 18:30 Magnesium Hydroxide (Milk Of Mag) 30 ml DAILY PRN PO .CONSTIPATION; Start 05/14/18 at 18:30 Famotidine (Pepcid) 20 mg DAILY PO Last administered on 05/28/18at 08:51; Admin Dose 20 MG; Start 05/14/18 at 21:00 Enoxaparin Sodium (Lovenox) 30 mg DAILY SC Last administered on 05/28/18at 08:48; Admin Dose 30 MG; Start 05/15/18 at 09:00 Miscellaneous Information (Pending Santyl Order For Wound Care) This patient noriega... PRN PRN XX WOUND CARE; Start 05/14/18 at 23:00 Acetaminophen (Tylenol Liquid) 650 mg Q6 PRN PO MILD PAIN(1-3)OR ELEVATED TEMP Last administered on 05/16/18 21:13; Admin Dose 650 MG; Start 05/15/18 at 07:00 Albuterol (Ventolin Hfa) 4 puff Q6H RESP THERAPY INH Last administered on 05/28/18 13:38; Admin Dose 4 PUFF; Start 05/15/18 at 14:00 Ipratropium [place] (Atrovent Hfa) 4 puff Q6H RESP THERAPY INH Last administered on 05/28/18 13:37; Admin Dose 4 PUFF; Start 05/15/18 at 14:00 Collagenase (Santyl) 1 applic DAILY TOP Last administered on 05/28/18 08:49; Admin Dose 1 APPLIC; Start 05/15/18 at 13:00 Multivit/Ca Carb/ B Cmplx/FA/Prenat ([place]) 1 tab DAILY GTB Last administered on 05/28/18 08:50; Admin Dose 1 TAB; Start 05/16/18 at 09:00 Zinc Sulfate (Zinc Sulfate) 220 mg DAILY GTB Last administered on 05/28/18 08:50; Admin Dose 220 MG; Start 05/16/18 at 09:00 Ascorbic Acid (Vitamin C) 250 mg DAILY GTB Last administered on 05/28/18 08:50; Admin Dose 250 MG; Start 05/16/18 at 09:00 Chlorhexidine Gluconate (Peridex) 15 ml Q12 MM Last administered on 05/28/18 08:49; Admin Dose 15 ML; Start 05/15/18 at 16:30 Levetiracetam (Keppra Liquid) 500 mg Q12 GTB Last administered on 05/28/18 08:49; Admin Dose 500 MG; Start 05/15/18 at 16:30 Quetiapine Fumarate (Seroquel) 50 mg BID GTB Last administered on 05/28/18 08:50; Admin Dose 50 MG; Start 05/15/18 at 21:00 IV Flush (NS 10 ml) 10 ml PRN PRN IV IV PROTOCOL; Start 05/15/18 at 18:30 Docusate Sodium (Colace Liquid Cup) 100 mg BID GTB Last administered on 05/28/18 08:49; Admin Dose 100 MG; Start 05/15/18 at 21:00 TIARA CISNEROS MD May 28, 2018 18:11
[2018-05-29] VITALS (23 sets, daily range): BP systolic 91–171; BP diastolic 57–95; PULSE 82–149; RESP 18–37
[2018-05-29] MEDS: IPRATROPIUM (HFA) 12.9 GM INHALER INH SCH ×4 (01:40→19:35)
[2018-05-29] MEDS: ALBUTEROL HFA 8 GM INHALER INH SCH ×4 (01:40→19:36)
[2018-05-29] MEDS: HYDROmorphONE 0.5 MG/0.5 ML SYG IV PRN ×6 (02:07→23:14)
[2018-05-29] MEDS: LEVETIRACETAM (100 MG/ML) 5ML CUP GTB SCH ×2 (09:35→23:15)
[2018-05-29] MEDS: DOCUSATE SODIUM 10 MG/ML (10ML CUP) GTB SCH ×2 (09:35→21:00)
[2018-05-29] MEDS: CHLORHEXIDINE GLUCONATE 15 ML UD CUP MM SCH ×2 (09:35→23:15)
[2018-05-29] MEDS: QUETIAPINE 25 MG TAB GTB SCH ×2 (09:36→23:15)
[2018-05-29] MEDS: ZINC SULFATE 220 MG CAP GTB SCH (09:36)
[2018-05-29] MEDS: FAMOTIDINE 20 MG TAB PO SCH (09:36)
[2018-05-29] MEDS: MULTIVIT/CA CARB/B CMPLX/FA TAB GTB SCH (09:36)
[2018-05-29] MEDS: COLLAGENASE 5 GM (UD JAR) TOP SCH (09:37)
[2018-05-29] MEDS: ENOXAPARIN 30 MG/0.3 ML SYG SC SCH (09:54)
[2018-05-29] MEDS: ASCORBIC ACID 250 MG TAB GTB SCH (10:01)
[2018-05-29] MEDS: BALSAM PERU/CASTOR OIL 60 GM TUBE TOP SCH ×2 (10:02→23:20)
--- NOTE | 2018-05-29 11:22 | CONS ---
Assessment/Plan Assessment/Plan Assessment/Plan (Daily) 1. Acute on chronic renal failure 2. Hypernatremia- Mild 3. UTI 4. history of paraplegia secondary to cervical spine injury, ventilator dependent respiratory failure with striking ostomy, dysphagia with G-tube, neurogenic bladder with suprapubic catheter, right nephrectomy, left renal renal nephrolithiasis with history of lithotripsy and stent placement and urethral stent removal, history of bipolar disorder 5. acute hyperkalemia Plan: BUN/Cr 74/1.46, Na 146, HCo3 20-- K improved to 5.1 today s/p IV abx now, monitor electrolytes and replace as needed will follow up Consultation Date/Type/Reason Admit Date/Time May 14, 2018 at 18:34 Initial Consult Date 05/15/18 Type of Consult NEPHROLOGY Requesting Provider: JOSÉ ANTONIO MIRZA MD Date/Time of Note DATE: 05/29/18 TIME: 11:22 Exam/Review of Systems Exam Vitals Vital Signs Date Temp Pulse Resp B/P (MAP) Pulse Ox O2 O2 Flow FiO2 Time Delivery Rate 05/29/18 97.8 128 37 133/95 96 Trach 08:07 (108) Collar 05/29/18 30 05:04 Intake and Output 05/28/18 05/28/18 05/29/18 1515:00 23:00 07:00 IntakeIntake Total 1050 ml 1050 ml OutputOutput Total 1000 ml 900 ml BalanceBalance 50 ml 150 ml Exam Constitutional: alert, oriented Neck: supple, + tracheostomy, site is clear Respiratory: decreasesd BS at bases, no wheezing, no crackles Cardiovascular: regular rate and rhythm, other (Tachycardic) Gastrointestinal: soft, non-tender, other (G-tube) Genitourinary - Male: other (Suprapubic catheter) Extremities: normal pulses, other (Contracted) Neurological: other (Paraplegia) Skin: other (Multiple wounds) Results Result Diagram: 05/28/18 0545 05/28/18 0601 Medications Medication Current Medications IV Flush (NS 3 ml) 3 ml PER PROTOCOL IV ; Start 05/14/18 at 18:30 Lorazepam (Ativan) 0.5 mg Q6H PRN IV .ANXIETY Last administered on 05/20/18at 22:26; Admin Dose 0.5 MG; Start 05/14/18 at 18:30 Ondansetron HCl (Zofran Inj) 4 mg Q6H PRN IV NAUSEA/VOMITING; Start 05/14/18 at 18:30 Acetaminophen/ Hydrocodone Bitart ([place] (5/325)) 1 tab Q6H PRN PO .PAIN 4-6; Start 05/14/18 at 18:30 Acetaminophen/ Hydrocodone Bitart ([place] (5/325)) 2 tab Q6H PRN PO .PAIN 7-10 Last administered on 05/24/18 08:15; Admin Dose 2 TAB; Start 05/14/18 at 18:30 Hydromorphone HCl (Dilaudid) 0.5 mg Q4H PRN IV .PAIN 7-10 Last administered on 05/29/18 10:08; Admin Dose 0.5 MG; Start 05/14/18 at 18:30 Docusate Sodium (Colace) 100 mg Q12H PRN PO .CONSTIPATION; Start 05/14/18 at 18:30 Magnesium Hydroxide (Milk Of Mag) 30 ml DAILY PRN PO .CONSTIPATION; Start 05/14/18 at 18:30 Famotidine (Pepcid) 20 mg DAILY PO Last administered on 05/29/18 09:36; Admin Dose 20 MG; Start 05/14/18 at 21:00 Enoxaparin Sodium (Lovenox) 30 mg DAILY SC Last administered on 05/29/18 09:54; Admin Dose 30 MG; Start 05/15/18 at 09:00 Miscellaneous Information (Pending [facility] Order For Wound Care) This patient noriega... PRN PRN XX WOUND CARE; Start 05/14/18 at 23:00 Acetaminophen (Tylenol Liquid) 650 mg Q6 PRN PO MILD PAIN(1-3)OR ELEVATED TEMP Last administered on 05/16/18 21:13; Admin Dose 650 MG; Start 05/15/18 at 07:00 Albuterol (Ventolin Hfa) 4 puff Q6H RESP THERAPY INH Last administered on 05/29/18 08:21; Admin Dose 4 PUFF; Start 05/15/18 at 14:00 Ipratropium [place] (Atrovent Hfa) 4 puff Q6H RESP THERAPY INH Last administered on 05/29/18 08:20; Admin Dose 4 PUFF; Start 05/15/18 at 14:00 Collagenase (Santyl) 1 applic DAILY TOP Last administered on 05/29/18 09:37; Admin Dose 1 APPLIC; Start 05/15/18 at 13:00 Multivit/Ca Carb/ B Cmplx/FA/Prenat ([place]) 1 tab DAILY GTB Last administered on 05/29/18 09:36; Admin Dose 1 TAB; Start 05/16/18 at 09:00 Zinc Sulfate (Zinc Sulfate) 220 mg DAILY GTB Last administered on 05/29/18 09:36; Admin Dose 220 MG; Start 05/16/18 at 09:00 Ascorbic Acid (Vitamin C) 250 mg DAILY GTB Last administered on 05/29/18 10:01; Admin Dose 250 MG; Start 05/16/18 at 09:00 Chlorhexidine Gluconate (Peridex) 15 ml Q12 MM Last administered on 05/29/18 09:35; Admin Dose 15 ML; Start 05/15/18 at 16:30 Levetiracetam (Keppra Liquid) 500 mg Q12 GTB Last administered on 05/29/18 09:35; Admin Dose 500 MG; Start 05/15/18 at 16:30 Quetiapine Fumarate (Seroquel) 50 mg BID GTB Last administered on 05/29/18 09:36; Admin Dose 50 MG; Start 05/15/18 at 21:00 IV Flush (NS 10 ml) 10 ml PRN PRN IV IV PROTOCOL; Start 05/15/18 at 18:30 Docusate Sodium (Colace Liquid Cup) 100 mg BID GTB Last administered on 05/29/18 09:35; Admin Dose 100 MG; Start 05/15/18 at 21:00 TIARA CISNEROS MD May 29, 2018 11:22
--- NOTE | 2018-05-29 12:08 | CONS ---
Assessment/Plan Assessment/Plan Hospital Course (Demo Recall) No acute changes, looks comfortable, no fevers, on/off tachycardic Microbiology: Urine culture grew Proteus mirabilis, sputum culture growing further dentia, blood culture grew staph sp. 1 out of 2 sets Indwelling: Trach, PEG, PICC line, suprapubic catheter Allergies: Tetracycline Antimicrobials: completed Physical examination: Chronically ill-appearing middle-aged man who is in no dis tress. Head atraumatic normocephalic neck is supple chest rise symmetrical breath sounds diminished bases. Heart: S1-S2. Abdomen soft bowel sounds present. Extremities wasted without cyanosis Assessment: 1. S/p severe sepsis with shock 2. Bacteremia, cw contaminant 2. S/p healthcare associated pneumonia 3. S/p Urinary tract infection 4. Chronic respiratory failure and dysphagia 5. Acute on chronic kidney disease 6. Neurogenic bladder status post suprapubic catheter placement 7. Incomplete quadriplegia 8. History of nephrectomy 9. History of scabies 10. Multiple chronic wounds Plan: Continue observing off abx, repeat cx's prn Consultation Date/Type/Reason Admit Date/Time May 14, 2018 at 18:34 Initial Consult Date 05/15/18 Type of Consult id Requesting Provider: JOSÉ ANTONIO MIRZA MD Date/Time of Note DATE: 05/29/18 TIME: 12:07 Exam/Review of Systems Exam Vitals Vital Signs Date Temp Pulse Resp B/P (MAP) Pulse Ox O2 O2 Flow FiO2 Time Delivery Rate 05/29/18 97.8 128 37 133/95 96 Trach 08:07 (108) Collar 05/29/18 30 05:04 Intake and Output 05/28/18 05/28/18 05/29/18 1515:00 23:00 07:00 IntakeIntake Total 1050 ml 1050 ml OutputOutput Total 1000 ml 900 ml BalanceBalance 50 ml 150 ml Results Result Diagram: 05/28/18 0545 05/28/18 0601 Medications Medication Current Medications IV Flush (NS 3 ml) 3 ml PER PROTOCOL IV ; Start 05/14/18 at 18:30 Lorazepam (Ativan) 0.5 mg Q6H PRN IV .ANXIETY Last administered on 05/20/18at 22:26; Admin Dose 0.5 MG; Start 05/14/18 at 18:30 Ondansetron HCl (Zofran Inj) 4 mg Q6H PRN IV NAUSEA/VOMITING; Start 05/14/18 at 18:30 Acetaminophen/ Hydrocodone Bitart ([place] (5/325)) 1 tab Q6H PRN PO .PAIN 4-6; Start 05/14/18 at 18:30 Acetaminophen/ Hydrocodone Bitart ([place] (5/325)) 2 tab Q6H PRN PO .PAIN 7-10 Last administered on 05/24/18 08:15; Admin Dose 2 TAB; Start 05/14/18 at 18:30 Hydromorphone HCl (Dilaudid) 0.5 mg Q4H PRN IV .PAIN 7-10 Last administered on 05/29/18 10:08; Admin Dose 0.5 MG; Start 05/14/18 at 18:30 Docusate Sodium (Colace) 100 mg Q12H PRN PO .CONSTIPATION; Start 05/14/18 at 18:30 Magnesium Hydroxide (Milk Of Mag) 30 ml DAILY PRN PO .CONSTIPATION; Start 05/14/18 at 18:30 Famotidine (Pepcid) 20 mg DAILY PO Last administered on 05/29/18 09:36; Admin Dose 20 MG; Start 05/14/18 at 21:00 Enoxaparin Sodium (Lovenox) 30 mg DAILY SC Last administered on 05/29/18 09:54; Admin Dose 30 MG; Start 05/15/18 at 09:00 Miscellaneous Information (Pending Santyl Order For Wound Care) This patient noriega... PRN PRN XX WOUND CARE; Start 05/14/18 at 23:00 Acetaminophen (Tylenol Liquid) 650 mg Q6 PRN PO MILD PAIN(1-3)OR ELEVATED TEMP Last administered on 05/16/18 21:13; Admin Dose 650 MG; Start 05/15/18 at 07:00 Albuterol (Ventolin Hfa) 4 puff Q6H RESP THERAPY INH Last administered on 05/29/18 08:21; Admin Dose 4 PUFF; Start 05/15/18 at 14:00 Ipratropium [place] (Atrovent Hfa) 4 puff Q6H RESP THERAPY INH Last administered on 05/29/18 08:20; Admin Dose 4 PUFF; Start 05/15/18 at 14:00 Collagenase (Santyl) 1 applic DAILY TOP Last administered on 05/29/18 09:37; Admin Dose 1 APPLIC; Start 05/15/18 at 13:00 Multivit/Ca Carb/ B Cmplx/FA/Prenat ([place]) 1 tab DAILY GTB Last administered on 05/29/18 09:36; Admin Dose 1 TAB; Start 05/16/18 at 09:00 Zinc Sulfate (Zinc Sulfate) 220 mg DAILY GTB Last administered on 05/29/18 09:36; Admin Dose 220 MG; Start 05/16/18 at 09:00 Ascorbic Acid (Vitamin C) 250 mg DAILY GTB Last administered on 05/29/18 10:01; Admin Dose 250 MG; Start 05/16/18 at 09:00 Chlorhexidine Gluconate (Peridex) 15 ml Q12 MM Last administered on 05/29/18 09:35; Admin Dose 15 ML; Start 05/15/18 at 16:30 Levetiracetam (Keppra Liquid) 500 mg Q12 GTB Last administered on 05/29/18 09:35; Admin Dose 500 MG; Start 05/15/18 at 16:30 Quetiapine Fumarate (Seroquel) 50 mg BID GTB Last administered on 05/29/18 09:36; Admin Dose 50 MG; Start 05/15/18 at 21:00 IV Flush (NS 10 ml) 10 ml PRN PRN IV IV PROTOCOL; Start 05/15/18 at 18:30 Docusate Sodium (Colace Liquid Cup) 100 mg BID GTB Last administered on 05/29/18 09:35; Admin Dose 100 MG; Start 05/15/18 at 21:00 REGINALDO CHERY NP May 29, 2018 12:08
--- NOTE | 2018-05-29 13:15 | PN ---
Date/Time of Note Date/Time of Note DATE: 05/29/18 TIME: 13:13 Assessment/Plan VTE Prophylaxis Risk score (from Nsg)>0 risk: 7 SCD applied (from Nsg): Yes Lines/Catheters IV Catheter Type (from Nrsg): PICC Line Assessment/Plan Assessment/Plan - S/p sepsis secondary to pneumonia, completed treatment with meropenem. Dr. Maciel is following in infection disease consultation. - Health care associated pneumonia - Proteus M UTI - Acute on chronic renal failure, continue IV fluids. Continue to monitor BUN and creatinine. Dr. Barker is following patient in nephrology consultation. - Ventilator dependent respiratory failure, continue pulmonary toilet and bronchodilators. Dr Ames is following in pulmonology consultation. - Neurogenic bladder with suprapubic catheter. - Left renal nephrolithiasis, hx of lithotripsy with insertion and subsequent removal of ureteral JJ stent. - Hx of right nephrectomy - Dysphagia with gastrostomy tube. - Multiple decubitus ulcers present on admission. Continue current care per wound consult recommendations, offloading air mattress, optimize nutrition. - Cervical spine injury with paraplegia. - Bipolar disorder with psychosis. Result Diagram: 05/28/18 0545 05/28/18 0601 Exam/Review of Systems Exam Vitals Vital Signs Date Temp Pulse Resp B/P (MAP) Pulse Ox O2 O2 Flow FiO2 Time Delivery Rate 05/29/18 98.8 129 33 104/83 92 Trach 12:18 (90) Collar 05/29/18 30 05:04 Intake and Output 05/28/18 05/28/18 05/29/18 1515:00 23:00 07:00 IntakeIntake Total 1050 ml 1050 ml OutputOutput Total 1000 ml 900 ml BalanceBalance 50 ml 150 ml Medications Medication Current Medications IV Flush (NS 3 ml) 3 ml PER PROTOCOL IV ; Start 05/14/18 at 18:30 Lorazepam (Ativan) 0.5 mg Q6H PRN IV .ANXIETY Last administered on 05/20/18at 22:26; Admin Dose 0.5 MG; Start 05/14/18 at 18:30 Ondansetron HCl (Zofran Inj) 4 mg Q6H PRN IV NAUSEA/VOMITING; Start 05/14/18 at 18:30 Acetaminophen/ Hydrocodone Bitart ([place] (5/325)) 1 tab Q6H PRN PO .PAIN 4-6; Start 05/14/18 at 18:30 Acetaminophen/ Hydrocodone Bitart ([place] (5/325)) 2 tab Q6H PRN PO .PAIN 7-10 Last administered on 05/24/18 08:15; Admin Dose 2 TAB; Start 05/14/18 at 18:30 Hydromorphone HCl (Dilaudid) 0.5 mg Q4H PRN IV .PAIN 7-10 Last administered on 05/29/18 10:08; Admin Dose 0.5 MG; Start 05/14/18 at 18:30 Docusate Sodium (Colace) 100 mg Q12H PRN PO .CONSTIPATION; Start 05/14/18 at 18:30 Magnesium Hydroxide (Milk Of Mag) 30 ml DAILY PRN PO .CONSTIPATION; Start 05/14/18 at 18:30 Famotidine (Pepcid) 20 mg DAILY PO Last administered on 05/29/18 09:36; Admin Dose 20 MG; Start 05/14/18 at 21:00 Enoxaparin Sodium (Lovenox) 30 mg DAILY SC Last administered on 05/29/18 09:54; Admin Dose 30 MG; Start 05/15/18 at 09:00 Miscellaneous Information (Pending Santyl Order For Wound Care) This patient noriega... PRN PRN XX WOUND CARE; Start 05/14/18 at 23:00 Acetaminophen (Tylenol Liquid) 650 mg Q6 PRN PO MILD PAIN(1-3)OR ELEVATED TEMP Last administered on 05/16/18 21:13; Admin Dose 650 MG; Start 05/15/18 at 07:00 Albuterol (Ventolin Hfa) 4 puff Q6H RESP THERAPY INH Last administered on 05/29/18 08:21; Admin Dose 4 PUFF; Start 05/15/18 at 14:00 Ipratropium [place] (Atrovent Hfa) 4 puff Q6H RESP THERAPY INH Last administered on 05/29/18 08:20; Admin Dose 4 PUFF; Start 05/15/18 at 14:00 Collagenase (Santyl) 1 applic DAILY TOP Last administered on 05/29/18 09:37; Admin Dose 1 APPLIC; Start 05/15/18 at 13:00 Multivit/Ca Carb/ B Cmplx/FA/Prenat ([place]) 1 tab DAILY GTB Last administered on 05/29/18 09:36; Admin Dose 1 TAB; Start 05/16/18 at 09:00 Zinc Sulfate (Zinc Sulfate) 220 mg DAILY GTB Last administered on 05/29/18 09:36; Admin Dose 220 MG; Start 05/16/18 at 09:00 Ascorbic Acid (Vitamin C) 250 mg DAILY GTB Last administered on 05/29/18 10:01; Admin Dose 250 MG; Start 05/16/18 at 09:00 Chlorhexidine Gluconate (Peridex) 15 ml Q12 MM Last administered on 05/29/18 09:35; Admin Dose 15 ML; Start 05/15/18 at 16:30 Levetiracetam (Keppra Liquid) 500 mg Q12 GTB Last administered on 05/29/18 09:35; Admin Dose 500 MG; Start 05/15/18 at 16:30 Quetiapine Fumarate (Seroquel) 50 mg BID GTB Last administered on 05/29/18 09:36; Admin Dose 50 MG; Start 05/15/18 at 21:00 IV Flush (NS 10 ml) 10 ml PRN PRN IV IV PROTOCOL; Start 05/15/18 at 18:30 Docusate Sodium (Colace Liquid Cup) 100 mg BID GTB Last administered on 05/29/18 09:35; Admin Dose 100 MG; Start 05/15/18 at 21:00 NAE VELAZCO May 29, 2018 13:15
[2018-05-29] MEDS: DEXTROSE 5% 1,000 ML IV SCH ×2 (14:44→23:24)
[2018-05-29] MEDS ORDERED: SOD CHLORIDE 0.9% 1,000 ML IV ONE (19:00)
[2018-05-29] MEDS ORDERED: VANCOMYCIN IV PER PHARMACY XX SCH (21:00)
[2018-05-29] MEDS ORDERED: VANCOMYCIN 1 GM 250 ML IVPB SCH (22:30)
[2018-05-29] MEDS: MEROPENEM 1 GM/50ML(PMX) 50 ML IVPB SCH (23:18)
[2018-05-30] VITALS (24 sets, daily range): BP systolic 91–117; BP diastolic 63–73; PULSE 103–124; RESP 16–36
[2018-05-30] MEDS: IPRATROPIUM (HFA) 12.9 GM INHALER INH SCH ×4 (01:17→19:19)
[2018-05-30] MEDS: ALBUTEROL HFA 8 GM INHALER INH SCH ×4 (01:17→19:20)
[2018-05-30] MEDS: HYDROmorphONE 0.5 MG/0.5 ML SYG IV PRN ×4 (03:40→22:59)
[2018-05-30] MEDS: MEROPENEM 1 GM/50ML(PMX) 50 ML IVPB SCH ×3 (05:00→21:40)
[2018-05-30] MEDS: LEVETIRACETAM (100 MG/ML) 5ML CUP GTB SCH ×2 (08:52→21:39)
[2018-05-30] MEDS: DOCUSATE SODIUM 10 MG/ML (10ML CUP) GTB SCH ×2 (08:52→21:38)
[2018-05-30] MEDS: COLLAGENASE 5 GM (UD JAR) TOP SCH (08:52)
[2018-05-30] MEDS: ASCORBIC ACID 250 MG TAB GTB SCH (08:52)
[2018-05-30] MEDS: ZINC SULFATE 220 MG CAP GTB SCH (08:52)
[2018-05-30] MEDS: MULTIVIT/CA CARB/B CMPLX/FA TAB GTB SCH (08:52)
[2018-05-30] MEDS: QUETIAPINE 25 MG TAB GTB SCH ×2 (08:53→21:38)
[2018-05-30] MEDS: FAMOTIDINE 20 MG TAB PO SCH (08:53)
[2018-05-30] MEDS: CHLORHEXIDINE GLUCONATE 15 ML UD CUP MM SCH ×2 (08:53→21:38)
[2018-05-30] MEDS: BALSAM PERU/CASTOR OIL 60 GM TUBE TOP SCH ×2 (08:53→21:40)
[2018-05-30] MEDS: ENOXAPARIN 30 MG/0.3 ML SYG SC SCH (08:58)
[2018-05-30] MEDS ORDERED: VANCOMYCIN 750 MG (PMX) 250 ML IVPB SCH (10:30)
--- NOTE | 2018-05-30 12:00 | CONS ---
Assessment/Plan Assessment/Plan Assessment/Plan (Daily) 1. Acute on chronic renal failure 2. Hypernatremia- Mild 3. UTI 4. history of paraplegia secondary to cervical spine injury, ventilator dependent respiratory failure with striking ostomy, dysphagia with G-tube, neurogenic bladder with suprapubic catheter, right nephrectomy, left renal renal nephrolithiasis with history of lithotripsy and stent placement and urethral stent removal, history of bipolar disorder 5. acute hyperkalemia - Improved Plan: BUN/Cr 78/1.76, HCo3 20- will give D5 W with 1 ampoule of sodium bicarbonate x 3 liter then stop s/p IV abx now, monitor electrolytes and replace as needed will follow up Consultation Date/Type/Reason Admit Date/Time May 14, 2018 at 18:34 Initial Consult Date 05/15/18 Type of Consult NEPHROLOGY Requesting Provider: JOSÉ ANTONIO MIRZA MD Date/Time of Note DATE: 05/30/18 TIME: 12:00 Exam/Review of Systems Exam Vitals Vital Signs Date Temp Pulse Resp B/P (MAP) Pulse Ox O2 O2 Flow FiO2 Time Delivery Rate 05/30/18 98.7 116 18 116/73 98 Mechanical 11:57 (87) Ventilator 05/30/18 35 05:44 Intake and Output 05/29/18 05/29/18 05/30/18 1515:00 23:00 07:00 IntakeIntake Total 1150 ml 1715 ml OutputOutput Total 800 ml BalanceBalance 350 ml 1715 ml Exam Constitutional: alert, oriented Neck: supple, + tracheostomy, site is clear Respiratory: decreasesd BS at bases, no wheezing, no crackles Cardiovascular: regular rate and rhythm, other (Tachycardic) Gastrointestinal: soft, non-tender, other (G-tube) Genitourinary - Male: other (Suprapubic catheter) Extremities: normal pulses, other (Contracted) Neurological: other (Paraplegia) Skin: other (Multiple wounds) Results Result Diagram: 05/30/18 1042 05/30/18 1042 Results 24hrs Laboratory Tests Test 05/29/18 13:31 05/30/18 10:42 White Blood Count 15.1 #H 9.4 # Red Blood Count 3.08 L 2.58 L Hemoglobin 9.0 L 7.6 L Hematocrit 29.8 L 25.3 L Mean Corpuscular Volume 96.8 98.1 Mean Corpuscular Hemoglobin 29.2 29.5 Mean Corpuscular Hemoglobin Concent 30.2 L 30.0 L Red Cell Distribution Width 17.5 H 18.1 H Platelet Count 195 # 143 # Mean Platelet Volume 12.9 H 12.4 H Immature Granulocytes % 0.600 H 0.400 Neutrophils % 92.1 H 88.3 H Lymphocytes % 2.5 L 4.9 L Monocytes % 4.0 5.6 Eosinophils % 0.7 0.7 Basophils % 0.1 0.1 Nucleated Red Blood Cells % 0.0 0.0 Immature Granulocytes # 0.090 H 0.040 H Neutrophils # 13.9 H 8.3 H Lymphocytes # 0.4 L 0.5 L Monocytes # 0.6 0.5 Eosinophils # 0.1 0.1 Basophils # 0.0 0.0 Nucleated Red Blood Cells # 0.0 0.0 Sodium Level 146 H 144 Potassium Level 5.1 5.1 Chloride Level 113 H 114 H Carbon Dioxide Level 20 L 20 L Anion Gap 13 10 Blood Urea Nitrogen 74 H 78 H Creatinine 1.46 H 1.76 H Est Glomerular Filtrat Rate mL/min 53 L 43 L Glucose Level 162 116 # Calcium Level 10.0 9.3 Medications Medication Current Medications IV Flush (NS 3 ml) 3 ml PER PROTOCOL IV ; Start 05/14/18 at 18:30 Lorazepam (Ativan) 0.5 mg Q6H PRN IV .ANXIETY Last administered on 05/20/18at 22:26; Admin Dose 0.5 MG; Start 05/14/18 at 18:30 Ondansetron HCl (Zofran Inj) 4 mg Q6H PRN IV NAUSEA/VOMITING; Start 05/14/18 at 18:30 Acetaminophen/ Hydrocodone Bitart ([place] (5/325)) 1 tab Q6H PRN PO .PAIN 4-6; Start 05/14/18 at 18:30 Acetaminophen/ Hydrocodone Bitart ([place] (5/325)) 2 tab Q6H PRN PO .PAIN 7-10 Last administered on 05/24/18at 08:15; Admin Dose 2 TAB; Start 05/14/18 at 18:30 Hydromorphone HCl (Dilaudid) 0.5 mg Q4H PRN IV .PAIN 7-10 Last administered on 05/30/18 09:04; Admin Dose 0.5 MG; Start 05/14/18 at 18:30 Docusate Sodium (Colace) 100 mg Q12H PRN PO .CONSTIPATION; Start 05/14/18 at 18:30 Magnesium Hydroxide (Milk Of Mag) 30 ml DAILY PRN PO .CONSTIPATION; Start 05/14/18 at 18:30 Famotidine (Pepcid) 20 mg DAILY PO Last administered on 05/30/18 08:53; Admin Dose 20 MG; Start 05/14/18 at 21:00 Enoxaparin Sodium (Lovenox) 30 mg DAILY SC Last administered on 05/30/18 08:58; Admin Dose 30 MG; Start 05/15/18 at 09:00 Miscellaneous Information (Pending Santyl Order For Wound Care) This patient noriega... PRN PRN XX WOUND CARE; Start 05/14/18 at 23:00 Acetaminophen (Tylenol Liquid) 650 mg Q6 PRN PO MILD PAIN(1-3)OR ELEVATED TEMP Last administered on 05/16/18 21:13; Admin Dose 650 MG; Start 05/15/18 at 07:00 Albuterol (Ventolin Hfa) 4 puff Q6H RESP THERAPY INH Last administered on 05/30/18 08:34; Admin Dose 4 PUFF; Start 05/15/18 at 14:00 Ipratropium [place] (Atrovent Hfa) 4 puff Q6H RESP THERAPY INH Last administered on 05/30/18 08:34; Admin Dose 4 PUFF; Start 05/15/18 at 14:00 Collagenase (Santyl) 1 applic DAILY TOP Last administered on 05/30/18 08:52; Admin Dose 1 APPLIC; Start 05/15/18 at 13:00 Multivit/Ca Carb/ B Cmplx/FA/Prenat ([place]) 1 tab DAILY GTB Last administered on 05/30/18 08:52; Admin Dose 1 TAB; Start 05/16/18 at 09:00 Zinc Sulfate (Zinc Sulfate) 220 mg DAILY GTB Last administered on 05/30/18 08:52; Admin Dose 220 MG; Start 05/16/18 at 09:00 Ascorbic Acid (Vitamin C) 250 mg DAILY GTB Last administered on 05/30/18 08:52; Admin Dose 250 MG; Start 05/16/18 at 09:00 Chlorhexidine Gluconate (Peridex) 15 ml Q12 MM Last administered on 05/30/18 08:53; Admin Dose 15 ML; Start 05/15/18 at 16:30 Levetiracetam (Keppra Liquid) 500 mg Q12 GTB Last administered on 05/30/18 08:52; Admin Dose 500 MG; Start 05/15/18 at 16:30 Quetiapine Fumarate (Seroquel) 50 mg BID GTB Last administered on 05/30/18 08:53; Admin Dose 50 MG; Start 05/15/18 at 21:00 IV Flush (NS 10 ml) 10 ml PRN PRN IV IV PROTOCOL; Start 05/15/18 at 18:30 Docusate Sodium (Colace Liquid Cup) 100 mg BID GTB Last administered on 05/30/18 08:52; Admin Dose 100 MG; Start 05/15/18 at 21:00 Dextrose 1,000 ml @ 50 mls/hr Q20H IV Last administered on 05/29/18 23:24; Admin Dose 50 MLS/HR; Start 05/29/18 at 13:30 Meropenem/Sodium Chloride 50 ml @ 100 mls/hr Q8 IVPB Last administered on 05/30/18at 05:00; Admin Dose 100 MLS/HR; Start 05/29/18 at 22:00 Vancomycin HCl (Vanco Iv Per Pharmacy) VANCOMYCIN PER PHARMACY PER PROTOCOL XX ; Start 05/29/18 at 21:00 Vancomycin HCl 250 ml @ 125 mls/hr Q36H IVPB ; Start 05/31/18 at 06:00 TIARA CISNEROS MD May 30, 2018 12:00
--- NOTE | 2018-05-30 13:51 | CONS ---
DATE OF ADMISSION: 05/14/2018 DATE OF CONSULTATION: TYPE OF CONSULTATION: Pulmonary. REASON FOR CONSULTATION: Ventilator management. Thank you, Dr. Barreto, for this consultation. HISTORY OF PRESENT ILLNESS: This is a 42-year-old gentleman with a history of paraplegia secondary t o C-spine injury, came in with fevers, dysphagia secondary to UTI. Course was complicated by acute o n chronic renal failure and electrolyte imbalance. The patient is being followed by nephrology and i nfectious disease specialist. He appears to be slowly improving with no significant leukocytosis thi s morning, but mild anemia. The patient remains vent dependent. PAST MEDICAL HISTORY: As above. MEDICATIONS: Per chart. ALLERGIES: NONE. SOCIAL HISTORY: Nonsmoker, no alcohol, no history of drug use. FAMILY HISTORY: Noncontributory. SYSTEMS REVIEW: A 12-point review of systems was negative other than that mentioned. PHYSICAL EXAMINATION: GENERAL: Chronically ill appearing gentleman on mechanical ventilation. VITAL SIGNS: He is afebrile, pulse is 110, blood pressure 101/63, O2 saturation 96% on FiO2 of 35%. NECK: Supple. No lymphadenopathy. CARDIAC: S1, S2. No added sounds or murmurs. Tachycardia. CHEST: Diminished air entry bilaterally with few rales. ABDOMEN: Soft, nontender. No guarding or rebound. EXTREMITIES: No cyanosis, clubbing or edema. NEUROLOGIC: Generalized weakness. DIAGNOSTIC DATA: Chest x-ray shows stable left basilar atelectasis. LABORATORY DATA: White count 9.4, hemoglobin 7.6, platelets of 143. Chemistry: BUN 74, creatinine 1.46. Arterial blood gas is pending. INR was 1.03. IMPRESSION AND PLAN: 1. Recent urinary tract infection. 2. Renal insufficiency with electrolyte abnormalities. 3. Ventilator-dependent respiratory failure with dysphagia and G-tube. PLAN: 1. Continue mechanical ventilation. 2. Pulmonary toilet. 3. Antibiotics per ID. 4. DVT and GI prophylaxis. 5. Tube feeding as tolerated. Dictated By: JESUS MANUEL ROY MD SV/NTS Conf#: [id number] DID#: [id number] CC: JOSÉ ANTONIO BARRETO MD; ZEESHAN NUNEZ MD;*EndCC*
--- NOTE | 2018-05-30 16:02 | CONS ---
Assessment/Plan Assessment/Plan Hospital Course (Demo Recall) Patient was spiking fevers yesterday white blood cell count went up to 15.1 he was pancultured and started on Vanco Merrem. Currently afebrile and remains tachycardic white blood cell count today 9.4 with platelets 143 BUN 78 creatinine 1.76 Antimicrobials vancomycin, meropenem Chest x-ray this morning revealed no significant change neutrophils 88.3 Microbiology: Urine culture grew Proteus mirabilis, sputum culture growing further dentia, blood culture grew staph sp. 1 out of 2 sets Indwelling: Trach, PEG, PICC line, suprapubic catheter Allergies: Tetracycline Antimicrobials: completed Physical examination: Chronically ill-appearing middle-aged man who is in no distress. Head atraumatic normocephalic neck is supple chest rise symmetrical breath sounds diminished bases. Heart: S1-S2. Abdomen soft bowel sounds present. Extremities wasted without cyanosis Assessment: 1. Sepsis 2. S/p bacteremia, cw contaminant 2. S/p healthcare associated pneumonia 3. S/p Urinary tract infection, poss recurrent 4. Chronic respiratory failure and dysphagia 5. Acute on chronic kidney disease 6. Neurogenic bladder status post suprapubic catheter placement 7. Incomplete quadriplegia 8. History of nephrectomy 9. History of scabies 10. Multiple chronic wounds Plan: Clinically stable, on broad-spectrum antibiotics, pending repeat cultures Consultation Date/Type/Reason Admit Date/Time May 14, 2018 at 18:34 Initial Consult Date 05/15/18 Type of Consult id Requesting Provider: JOSÉ ANTONIO MIRZA MD Date/Time of Note DATE: 05/30/18 TIME: 16:01 Exam/Review of Systems Exam Vitals Vital Signs Date Temp Pulse Resp B/P (MAP) Pulse Ox O2 O2 Flow FiO2 Time Delivery Rate 05/30/18 98.7 123 18 115/69 100 Mechanical 15:58 (84) Ventilator 05/30/18 35 15:42 Intake and Output 05/29/18 05/29/18 05/30/18 1515:00 23:00 07:00 IntakeIntake Total 1150 ml 1715 ml OutputOutput Total 800 ml BalanceBalance 350 ml 1715 ml Results Result Diagram: 05/30/18 1042 05/30/18 1042 Results 24hrs Laboratory Tests Test 05/30/18 10:42 White Blood Count 9.4 # Red Blood Count 2.58 L Hemoglobin 7.6 L Hematocrit 25.3 L Mean Corpuscular Volume 98.1 Mean Corpuscular Hemoglobin 29.5 Mean Corpuscular Hemoglobin Concent 30.0 L Red Cell Distribution Width 18.1 H Platelet Count 143 # Mean Platelet Volume 12.4 H Immature Granulocytes % 0.400 Neutrophils % 88.3 H Lymphocytes % 4.9 L Monocytes % 5.6 Eosinophils % 0.7 Basophils % 0.1 Nucleated Red Blood Cells % 0.0 Immature Granulocytes # 0.040 H Neutrophils # 8.3 H Lymphocytes # 0.5 L Monocytes # 0.5 Eosinophils # 0.1 Basophils # 0.0 Nucleated Red Blood Cells # 0.0 Sodium Level 144 Potassium Level 5.1 Chloride Level 114 H Carbon Dioxide Level 20 L Anion Gap 10 Blood Urea Nitrogen 78 H Creatinine 1.76 H Est Glomerular Filtrat Rate mL/min 43 L Glucose Level 116 # Calcium Level 9.3 Medications Medication Current Medications IV Flush (NS 3 ml) 3 ml PER PROTOCOL IV ; Start 05/14/18 at 18:30 Lorazepam (Ativan) 0.5 mg Q6H PRN IV .ANXIETY Last administered on 05/20/18at 22:26; Admin Dose 0.5 MG; Start 05/14/18 at 18:30 Ondansetron HCl (Zofran Inj) 4 mg Q6H PRN IV NAUSEA/VOMITING; Start 05/14/18 at 18:30 Acetaminophen/ Hydrocodone Bitart ([place] (5/325)) 1 tab Q6H PRN PO .PAIN 4-6; Start 05/14/18 at 18:30 Acetaminophen/ Hydrocodone Bitart ([place] (5/325)) 2 tab Q6H PRN PO .PAIN 7-10 Last administered on 05/24/18at 08:15; Admin Dose 2 TAB; Start 05/14/18 at 18:30 Hydromorphone HCl (Dilaudid) 0.5 mg Q4H PRN IV .PAIN 7-10 Last administered on 05/30/18at 09:04; Admin Dose 0.5 MG; Start 05/14/18 at 18:30 Docusate Sodium (Colace) 100 mg Q12H PRN PO .CONSTIPATION; Start 05/14/18 at 18:30 Magnesium Hydroxide (Milk Of Mag) 30 ml DAILY PRN PO .CONSTIPATION; Start 05/14/18 at 18:30 Famotidine (Pepcid) 20 mg DAILY PO Last administered on 05/30/18 08:53; Admin Dose 20 MG; Start 05/14/18 at 21:00 Enoxaparin Sodium (Lovenox) 30 mg DAILY SC Last administered on 05/30/18 08:58; Admin Dose 30 MG; Start 05/15/18 at 09:00 Miscellaneous Information (Pending Santyl Order For Wound Care) This patient noriega... PRN PRN XX WOUND CARE; Start 05/14/18 at 23:00 Acetaminophen (Tylenol Liquid) 650 mg Q6 PRN PO MILD PAIN(1-3)OR ELEVATED TEMP Last administered on 05/16/18 21:13; Admin Dose 650 MG; Start 05/15/18 at 07:00 Albuterol (Ventolin Hfa) 4 puff Q6H RESP THERAPY INH Last administered on 05/30/18 13:33; Admin Dose 4 PUFF; Start 05/15/18 at 14:00 Ipratropium [place] (Atrovent Hfa) 4 puff Q6H RESP THERAPY INH Last administered on 05/30/18 13:33; Admin Dose 4 PUFF; Start 05/15/18 at 14:00 Collagenase (Santyl) 1 applic DAILY TOP Last administered on 05/30/18 08:52; Admin Dose 1 APPLIC; Start 05/15/18 at 13:00 Multivit/Ca Carb/ B Cmplx/FA/Prenat ([place]ilibeth-Linn) 1 tab DAILY GTB Last administer ed on 05/30/18 08:52; Admin Dose 1 TAB; Start 05/16/18 at 09:00 Zinc Sulfate (Zinc Sulfate) 220 mg DAILY GTB Last administered on 05/30/18 08:52; Admin Dose 220 MG; Start 05/16/18 at 09:00 Ascorbic Acid (Vitamin C) 250 mg DAILY GTB Last administered on 05/30/18 08:52; Admin Dose 250 MG; Start 05/16/18 at 09:00 Chlorhexidine Gluconate (Peridex) 15 ml Q12 MM Last administered on 05/30/18 08:53; Admin Dose 15 ML; Start 05/15/18 at 16:30 Levetiracetam (Keppra Liquid) 500 mg Q12 GTB Last administered on 05/30/18at 08:52; Admin Dose 500 MG; Start 05/15/18 at 16:30 Quetiapine Fumarate (Seroquel) 50 mg BID GTB Last administered on 05/30/18at 08:53; Admin Dose 50 MG; Start 05/15/18 at 21:00 IV Flush (NS 10 ml) 10 ml PRN PRN IV IV PROTOCOL; Start 05/15/18 at 18:30 Docusate Sodium (Colace Liquid Cup) 100 mg BID GTB Last administered on 05/30/18at 08:52; Admin Dose 100 MG; Start 05/15/18 at 21:00 Vancomycin HCl (Vanco Iv Per Pharmacy) VANCOMYCIN PER PHARMACY PER PROTOCOL XX ; Start 05/29/18 at 21:00 Vancomycin HCl 250 ml @ 125 mls/hr Q36H IVPB ; Start 05/31/18 at 06:00 Sodium Bicarbonate 50 meq/Dextrose 1,000 ml @ 80 mls/hr [id number] IV ; Start 05/30/18 at 13:30; Stop 06/01/18 at 02:59 Meropenem/Sodium Chloride 50 ml @ 100 mls/hr Q12 IVPB ; Start 05/30/18 at 21:00 Atenolol (Tenormin) 12.5 mg BID GTB ; Start 05/30/18 at 21:00 REGINALDO CHERY NP May 30, 2018 16:02
[2018-05-30] MEDS: SODIUM BICARBONATE (IV ADD) 50 MEQ in DEXTROSE 5% 1,000 ML IV SCH (16:05)
--- NOTE | 2018-05-30 18:24 | PN ---
Date/Time of Note Date/Time of Note DATE: 05/30/18 TIME: 18:22 Assessment/Plan VTE [place] [facility] [place]: 7 [place] [facility] [place] Yes SCD contraindicated: other Pharmacological prophylaxis: other Pharm contraindication: other Lines/Catheters IV Catheter Type (from [facility]): PICC Line Urinary Cath still in place: Yes (suprapubic cath) Reason Cath still needed: urinary retention Assessment/Plan Assessment/Plan - S/p sepsis secondary to pneumonia, completed treatment with meropenem. Dr. Maciel is following in infection disease consultation. - Health care associated pneumonia - Proteus M UTI - Acute on chronic renal failure, continue IV fluids. Continue to monitor BUN and creatinine. Dr. Barker is following patient in nephrology consultation. - Ventilator dependent respiratory failure, continue pulmonary toilet and bronchodilators. Dr Ames is following in pulmonology consultation. - Neurogenic bladder with suprapubic catheter. - Left renal nephrolithiasis, hx of lithotripsy with insertion and subsequent removal of ureteral JJ stent. - Hx of right nephrectomy - Dysphagia with gastrostomy tube. - Multiple decubitus ulcers present on admission. Continue current care per wound consult recommendations, offloading air mattress, optimize nutrition. - Cervical spine injury with paraplegia. - Bipolar disorder with psychosis. Result Diagram: 05/30/18 1042 05/30/18 1042 Results 24hrs Laboratory Tests Test 05/30/18 10:42 White Blood Count 9.4 # Red Blood Count 2.58 L Hemoglobin 7.6 L Hematocrit 25.3 L Mean Corpuscular Volume 98.1 Mean Corpuscular Hemoglobin 29.5 Mean Corpuscular Hemoglobin Concent 30.0 L Red Cell Distribution Width 18.1 H Platelet Count 143 # Mean Platelet Volume 12.4 H Immature Granulocytes % 0.400 Neutrophils % 88.3 H Lymphocytes % 4.9 L Monocytes % 5.6 Eosinophils % 0.7 Basophils % 0.1 Nucleated Red Blood Cells % 0.0 Immature Granulocytes # 0.040 H Neutrophils # 8.3 H Lymphocytes # 0.5 L Monocytes # 0.5 Eosinophils # 0.1 Basophils # 0.0 Nucleated Red Blood Cells # 0.0 Sodium Level 144 Potassium Level 5.1 Chloride Level 114 H Carbon Dioxide Level 20 L Anion Gap 10 Blood Urea Nitrogen 78 H Creatinine 1.76 H Est Glomerular Filtrat Rate mL/min 43 L Glucose Level 116 # Calcium Level 9.3 Thyroid Stimulating Hormone (TSH) 1.210 Exam/Review of Systems Exam Vitals Vital Signs Date Temp Pulse Resp B/P (MAP) Pulse Ox O2 O2 Flow FiO2 Time Delivery Rate 05/30/18 109 24 95 30 17:40 05/30/18 98.7 115/69 Mechanical 15:58 (84) Ventilator Intake and Output 05/29/18 05/29/18 05/30/18 1515:00 23:00 07:00 IntakeIntake Total 1150 ml 1715 ml OutputOutput Total 800 ml BalanceBalance 350 ml 1715 ml Results Results 24hrs Laboratory Tests Test 05/30/18 10:42 White Blood Count 9.4 # Red Blood Count 2.58 L Hemoglobin 7.6 L Hematocrit 25.3 L Mean Corpuscular Volume 98.1 Mean Corpuscular Hemoglobin 29.5 Mean Corpuscular Hemoglobin Concent 30.0 L Red Cell Distribution Width 18.1 H Platelet Count 143 # Mean Platelet Volume 12.4 H Immature Granulocytes % 0.400 Neutrophils % 88.3 H Lymphocytes % 4.9 L Monocytes % 5.6 Eosinophils % 0.7 Basophils % 0.1 Nucleated Red Blood Cells % 0.0 Immature Granulocytes # 0.040 H Neutrophils # 8.3 H Lymphocytes # 0.5 L Monocytes # 0.5 Eosinophils # 0.1 Basophils # 0.0 Nucleated Red Blood Cells # 0.0 Sodium Level 144 Potassium Level 5.1 Chloride Level 114 H Carbon Dioxide Level 20 L Anion Gap 10 Blood Urea Nitrogen 78 H Creatinine 1.76 H Est Glomerular Filtrat Rate mL/min 43 L Glucose Level 116 # Calcium Level 9.3 Thyroid Stimulating Hormone (TSH) 1.210 Medications Medication Current Medications IV Flush (NS 3 ml) 3 ml PER PROTOCOL IV ; Start 05/14/18 at 18:30 Lorazepam (Ativan) 0.5 mg Q6H PRN IV .ANXIETY Last administered on 05/20/18at 22:26; Admin Dose 0.5 MG; Start 05/14/18 at 18:30 Ondansetron HCl (Zofran Inj) 4 mg Q6H PRN IV NAUSEA/VOMITING; Start 05/14/18 at 18:30 Acetaminophen/ Hydrocodone Bitart ([place] (5/325)) 1 tab Q6H PRN PO .PAIN 4-6; Start 05/14/18 at 18:30 Acetaminophen/ Hydrocodone Bitart ([place] (5/325)) 2 tab Q6H PRN PO .PAIN 7-10 Last administered on 05/24/18 08:15; Admin Dose 2 TAB; Start 05/14/18 at 18:30 Hydromorphone HCl (Dilaudid) 0.5 mg Q4H PRN IV .PAIN 7-10 Last administered on 05/30/18 09:04; Admin Dose 0.5 MG; Start 05/14/18 at 18:30 Docusate Sodium (Colace) 100 mg Q12H PRN PO .CONSTIPATION; Start 05/14/18 at 18:30 Magnesium Hydroxide (Milk Of Mag) 30 ml DAILY PRN PO .CONSTIPATION; Start 05/14/18 at 18:30 Famotidine (Pepcid) 20 mg DAILY PO Last administered on 05/30/18 08:53; Admin Dose 20 MG; Start 05/14/18 at 21:00 Enoxaparin Sodium (Lovenox) 30 mg DAILY SC Last administered on 05/30/18 08:58; Admin Dose 30 MG; Start 05/15/18 at 09:00 Miscellaneous Information (Pending Santyl Order For Wound Care) This patient noriega... PRN PRN XX WOUND CARE; Start 05/14/18 at 23:00 Acetaminophen (Tylenol Liquid) 650 mg Q6 PRN PO MILD PAIN(1-3)OR ELEVATED TEMP Last administered on 05/16/18 21:13; Admin Dose 650 MG; Start 05/15/18 at 07:00 Albuterol (Ventolin Hfa) 4 puff Q6H RESP THERAPY INH Last administered on 05/30/18 13:33; Admin Dose 4 PUFF; Start 05/15/18 at 14:00 Ipratropium [place] (Atrovent Hfa) 4 puff Q6H RESP THERAPY INH Last administered on 05/30/18 13:33; Admin Dose 4 PUFF; Start 05/15/18 at 14:00 Collagenase (Santyl) 1 applic DAILY TOP Last administered on 05/30/18 08:52; Admin Dose 1 APPLIC; Start 05/15/18 at 13:00 Multivit/Ca Carb/ B Cmplx/FA/Prenat ([place]ilib[place]-L[place]) 1 tab DAILY GTB Last administered on 05/30/18 08:52; Admin Dose 1 TAB; Start 05/16/18 at 09:00 Zinc Sulfate (Zinc Sulfate) 220 mg DAILY GTB Last administered on 05/30/18 08:52; Admin Dose 220 MG; Start 05/16/18 at 09:00 Ascorbic Acid (Vitamin C) 250 mg DAILY GTB Last administered on 05/30/18 08:52; Admin Dose 250 MG; Start 05/16/18 at 09:00 Chlorhexidine Gluconate (Peridex) 15 ml Q12 MM Last administered on 05/30/18 08:53; Admin Dose 15 ML; Start 05/15/18 at 16:30 Levetiracetam (Keppra Liquid) 500 mg Q12 GTB Last administered on 05/30/18 08:52; Admin Dose 500 MG; Start 05/15/18 at 16:30 Quetiapine Fumarate (Seroquel) 50 mg BID GTB Last administered on 05/30/18 08 :53; Admin Dose 50 MG; Start 05/15/18 at 21:00 IV Flush (NS 10 ml) 10 ml PRN PRN IV IV PROTOCOL; Start 05/15/18 at 18:30 Docusate Sodium (Colace Liquid Cup) 100 mg BID GTB Last administered on 05/30/18 at 08:52; Admin Dose 100 MG; Start 05/15/18 at 21:00 Vancomycin HCl (Vanco Iv Per Pharmacy) VANCOMYCIN PER PHARMACY PER PROTOCOL XX ; Start 05/29/18 at 21:00 Vancomycin HCl 250 ml @ 125 mls/hr Q36H IVPB ; Start 05/31/18 at 06:00 Sodium Bicarbonate 50 meq/Dextrose 1,000 ml @ 80 mls/hr [id number] IV Last administered on 05/30/18at 16:05; Admin Dose 80 MLS/HR; Start 05/30/18 at 13:30; Stop 06/01/18 at 02:59 Meropenem/Sodium Chloride 50 ml @ 100 mls/hr Q12 IVPB ; Start 05/30/18 at 21:00 Atenolol (Tenormin) 12.5 mg BID GTB ; Start 05/30/18 at 21:00 NAE VELAZCO May 30, 2018 18:24
[2018-05-30] MEDS ORDERED: DEXTROSE 5%-0.45% NACL 1,000 ML IV SCH (18:30)
--- NOTE | 2018-05-30 20:21 | CONS ---
DATE OF ADMISSION: 05/14/2018 DATE OF CONSULTATION: 05/30/2018 REASON FOR CONSULTATION: Tachycardia. REQUESTING PHYSICIAN: Hitesh Barreto MD HISTORY OF PRESENT ILLNESS: Mr. Haddad is a 42-year-old male with a history of vent-dependent respi ratory failure, incomplete quadriplegia, nephrectomy, decubitus ulcers, neurogenic bladder, status po st suprapubic catheter, prior cervical spine injury which led to incomplete quadriplegia and bipolar disorder who was initially admitted with sepsis secondary to pneumonia. The patient has been on ongo ing treatment and has been transferred to telemetry floor and on telemetry floor, the patient has had ongoing tachycardia to the low to mid 100s and today as high as 120s. The patient denies chest destin n or shortness of breath. PAST MEDICAL HISTORY: As above in the HPI. MEDICATIONS CURRENTLY IN HOSPITAL: 1. Vancomycin. 2. Multivitamins. 3. Zinc sulfate. 4. Vitamin C. 5. Seroquel. 6. Keppra. 7. Lovenox subcutaneously daily. 8. Pepcid. 9. Dilaudid p.r.n. 10. [place] p.r.n. 11. ____ p.r.n. ALLERGIES: TETRACYCLINE. SOCIAL HISTORY: No current tobacco, ETOH or illicit drug use. FAMILY HISTORY: No history of sudden cardiac or early CAD. REVIEW OF SYSTEMS: As above in the HPI. CONSTITUTIONAL: No fevers or chills. PULMONARY: Chronic respiratory failure, status post trach. GASTROINTESTINAL: Dysphagia. GENITOURINARY: Neurogenic bladder, status post suprapubic catheter. MUSCULOSKELETAL: Generalized wasting. PSYCHIATRIC: Positive psych history. PHYSICAL EXAMINATION: VITAL SIGNS: Temperature 98.7, blood pressure most recently 116/73, pulse 116, respiratory rate 18, saturating 98%. GENERAL: The patient is sleeping but arousable. NECK: JVP of 8 to 9 cm of water. CHEST: Fair air movement throughout. HEART: Tachycardic, regular rhythm, normal S1, S2, I/ systolic murmur, nondisplaced PMI. ABDOMEN: Positive bowel sounds, soft. EXTREMITIES: Wasted. No significant pitting edema, 1+ pulses bilateral posterior tibial. LABORATORY DATA: Most recently from today, white count of 9.4, hemoglobin 7.6 and platelet count of 143. Sodium 144, potassium 5.1, creatinine 1.76, BUN 78. UA borderline. IMAGING STUDIES: Chest x-ray on 05/30/2018 revealing no significant change in left basilar opacity w ith small pleural effusion representing evidence for pneumonia. ELECTROCARDIOGRAM: Most recently from 05/14/2018 reveals sinus tachycardia at 130, normal axis, norm al intervals, nonspecific ST and T abnormalities. IMPRESSION: 1. Tachycardia, most consistent with sinus tachycardia at this time; question if due to ongoing anxi ety, pain or neurologic complaint. 2. ____ echocardiogram nonspecific ST and T abnormalities, assess for acute coronary syndrome. 3. Quadriplegia. 4. Pneumonia. 5. Resolving sepsis. 6. Urinary tract infection. 7. Neurogenic bladder. 8. Status post nephrectomy. RECOMMENDATIONS: 1. At this time, would maintain the patient on telemetry monitoring to follow rhythm and rate contro l closely. 2. Would attempt a low-dose beta lorelei to improve overall heart rate control for patient comfort. 3. Reassess the patient's ejection fraction with 2D echo. 4. We will give patient ongoing IV fluid hydration. 5. TSH to be sure subclinical hyperthyroidism is not contributing to bouts of tachycardia. 6. Continue the patient's antibiotics and follow up all culture data. 7. Assure good pain control. Thank you for allowing me to take part in the care of this patient. I will continue to follow very c losely with you with recommendations to be made as the patient progresses through inpatient hospital clinical course. Dictated By: ZEESHAN JOHNSON/QUE Conf#: [id number] DID#: [id number]
[2018-05-30] MEDS: ATENOLOL 25 MG TAB GTB SCH (21:39)
[2018-05-31] VITALS (25 sets, daily range): BP systolic 75–138; BP diastolic 46–81; PULSE 88–119; RESP 15–36
[2018-05-31] MEDS: ALBUTEROL HFA 8 GM INHALER INH SCH ×4 (01:17→19:47)
[2018-05-31] MEDS: IPRATROPIUM (HFA) 12.9 GM INHALER INH SCH ×4 (01:17→19:47)
[2018-05-31] MEDS ORDERED: SOD CHLORIDE 0.9% 500 ML IV ONE ×2 (01:30)
[2018-05-31] MEDS: SODIUM BICARBONATE (IV ADD) 50 MEQ in DEXTROSE 5% 1,000 ML IV SCH ×2 (02:00→11:33)
[2018-05-31] MEDS: HYDROmorphONE 0.5 MG/0.5 ML SYG IV PRN ×2 (05:11→21:32)
[2018-05-31] MEDS: VANCOMYCIN 1 GM 250 ML IVPB SCH (05:12)
[2018-05-31] MEDS: BALSAM PERU/CASTOR OIL 60 GM TUBE TOP SCH ×2 (08:44→21:33)
[2018-05-31] MEDS: COLLAGENASE 5 GM (UD JAR) TOP SCH (08:44)
[2018-05-31] MEDS: CHLORHEXIDINE GLUCONATE 15 ML UD CUP MM SCH ×2 (08:44→21:31)
[2018-05-31] MEDS: LEVETIRACETAM (100 MG/ML) 5ML CUP GTB SCH ×2 (08:44→21:30)
[2018-05-31] MEDS: DOCUSATE SODIUM 10 MG/ML (10ML CUP) GTB SCH ×2 (08:44→21:31)
[2018-05-31] MEDS: QUETIAPINE 25 MG TAB GTB SCH ×2 (08:45→21:31)
[2018-05-31] MEDS: ZINC SULFATE 220 MG CAP GTB SCH (08:45)
[2018-05-31] MEDS: ASCORBIC ACID 250 MG TAB GTB SCH (08:45)
[2018-05-31] MEDS: MEROPENEM 1 GM/50ML(PMX) 50 ML IVPB SCH ×2 (08:45→21:31)
[2018-05-31] MEDS: ATENOLOL 25 MG TAB GTB SCH ×2 (08:46→21:31)
[2018-05-31] MEDS: MULTIVIT/CA CARB/B CMPLX/FA TAB GTB SCH (08:46)
[2018-05-31] MEDS: FAMOTIDINE 20 MG TAB PO SCH (08:46)
[2018-05-31] MEDS: ENOXAPARIN 30 MG/0.3 ML SYG SC SCH (08:48)
--- NOTE | 2018-05-31 10:57 | CONS ---
Assessment/Plan Assessment/Plan Assessment/Plan (Daily) 1. Acute on chronic renal failure 2. Hypernatremia- Mild 3. UTI 4. history of paraplegia secondary to cervical spine injury, ventilator dependent respiratory failure with striking ostomy, dysphagia with G-tube, neurogenic bladder with suprapubic catheter, right nephrectomy, left renal renal nephrolithiasis with history of lithotripsy and stent placement and urethral stent removal, history of bipolar disorder 5. acute hyperkalemia - Improved Plan: BUN/Cr 78/1.76, HCo3 20- on D5 W with 1 ampoule of sodium bicarbonate x 3 liter then stop s/p IV abx now, monitor electrolytes and replace as needed will follow up Consultation Date/Type/Reason Admit Date/Time May 14, 2018 at 18:34 Initial Consult Date 05/15/18 Type of Consult NEPHROLOGY Requesting Provider: JOSÉ ANTONIO MIRZA MD Date/Time of Note DATE: 05/31/18 TIME: 10:57 Exam/Review of Systems Exam Vitals Vital Signs Date Temp Pulse Resp B/P (MAP) Pulse Ox O2 O2 Flow FiO2 Time Delivery Rate 05/31/18 98 29 96 30 09:29 05/31/18 100.2 134/75 Mechanica 07:43 (94) l Ventilato r Intake and Output 05/30/18 05/30/18 05/31/18 1515:00 23:00 07:00 IntakeIntake Total 1360 ml 1150 ml OutputOutput Total 500 ml 650 ml BalanceBalance 860 ml 500 ml Results Result Diagram: 05/30/18 1042 05/30/18 1042 Medications Medication Current Medications IV Flush (NS 3 ml) 3 ml PER PROTOCOL IV ; Start 05/14/18 at 18:30 Lorazepam (Ativan) 0.5 mg Q6H PRN IV .ANXIETY Last administered on 05/20/18at 22:26; Admin Dose 0.5 MG; Start 05/14/18 at 18:30 Ondansetron HCl (Zofran Inj) 4 mg Q6H PRN IV NAUSEA/VOMITING; Start 05/14/18 at 18:30 Acetaminophen/ Hydrocodone Bitart ([place] (5/325)) 1 tab Q6H PRN PO .PAIN 4-6; Start 05/14/18 at 18:30 Acetaminophen/ Hydrocodone Bitart ([place] (5/325)) 2 tab Q6H PRN PO .PAIN 7-10 Last administered on 05/24/18 08:15; Admin Dose 2 TAB; Start 05/14/18 at 18:30 Hydromorphone HCl (Dilaudid) 0.5 mg Q4H PRN IV .PAIN 7-10 Last administered on 05/31/18 05:11; Admin Dose 0.5 MG; Start 05/14/18 at 18:30 Docusate Sodium (Colace) 100 mg Q12H PRN PO .CONSTIPATION; Start 05/14/18 at 18:30 Magnesium Hydroxide (Milk Of Mag) 30 ml DAILY PRN PO .CONSTIPATION; Start 05/14/18 at 18:30 Famotidine (Pepcid) 20 mg DAILY PO Last administered on 05/31/18 08:46; Admin Dose 20 MG; Start 05/14/18 at 21:00 Enoxaparin Sodium (Lovenox) 30 mg DAILY SC Last administered on 05/31/18 08:48; Admin Dose 30 MG; Start 05/15/18 at 09:00 Miscellaneous Information (Pending Santyl Order For Wound Care) This patient noriega... PRN PRN XX WOUND CARE; Start 05/14/18 at 23:00 Acetaminophen (Tylenol Liquid) 650 mg Q6 PRN PO MILD PAIN(1-3)OR ELEVATED TEMP Last administered on 05/16/18 21:13; Admin Dose 650 MG; Start 05/15/18 at 07:00 Albuterol (Ventolin Hfa) 4 puff Q6H RESP THERAPY INH Last administered on 05/31/18 08:03; Admin Dose 4 PUFF; Start 05/15/18 at 14:00 Ipratropium [place] (Atrovent Hfa) 4 puff Q6H RESP THERAPY INH Last a dministered on 05/31/18 08:03; Admin Dose 4 PUFF; Start 05/15/18 at 14:00 Collagenase (Santyl) 1 applic DAILY TOP Last administered on 05/31/18 08:44; Admin Dose 1 APPLIC; Start 05/15/18 at 13:00 Multivit/Ca Carb/ B Cmplx/FA/Prenat (Lilibeth-Linn) 1 tab DAILY GTB Last administered on 05/31/18 08:46; Admin Dose 1 TAB; Start 05/16/18 at 09:00 Zinc Sulfate (Zinc Sulfate) 220 mg DAILY GTB Last administered on 05/31/18 08:45; Admin Dose 220 MG; Start 05/16/18 at 09:00 Ascorbic Acid (Vitamin C) 250 mg DAILY GTB Last administered on 05/31/18 08:45; Admin Dose 250 MG; Start 05/16/18 at 09:00 Chlorhexidine Gluconate (Peridex) 15 ml Q12 MM Last administered on 05/31/18 08:44; Admin Dose 15 ML; Start 05/15/18 at 16:30 Levetiracetam (Keppra Liquid) 500 mg Q12 GTB Last administered on 05/31/18 08 :44; Admin Dose 500 MG; Start 05/15/18 at 16:30 Quetiapine Fumarate (Seroquel) 50 mg BID GTB Last administered on 05/31/18 08:45; Admin Dose 50 MG; Start 05/15/18 at 21:00 IV Flush (NS 10 ml) 10 ml PRN PRN IV IV PROTOCOL; Start 05/15/18 at 18:30 Docusate Sodium (Colace Liquid Cup) 100 mg BID GTB Last administered on 05/31/18 08:44; Admin Dose 100 MG; Start 05/15/18 at 21:00 Vancomycin HCl (Vanco Iv Per Pharmacy) VANCOMYCIN PER PHARMACY PER PROTOCOL XX ; Start 05/29/18 at 21:00 Vancomycin HCl 250 ml @ 125 mls/hr Q36H IVPB Last administered on 05/31/18 05:12; Admin Dose 125 MLS/HR; Start 05/31/18 at 06:00 Sodium Bicarbonate 50 meq/Dextrose 1,000 ml @ 80 mls/hr [id number] IV Last administered on 05/30/18 16:05; Admin Dose 80 MLS/HR; Start 05/30/18 at 13:30; Stop 06/01/18 at 02:59 Meropenem/Sodium Chloride 50 ml @ 100 mls/hr Q12 IVPB Last administered on 05/31/18 08:45; Admin Dose 100 MLS/HR; Start 05/30/18 at 21:00 Atenolol (Tenormin) 12.5 mg BID GTB Last administered on 05/31/18at 08:46; Admin Dose 12.5 MG; Start 05/30/18 at 21:00 Dextrose/Sodium Chloride 1,000 ml @ 60 mls/hr [id number] IV ; Start 05/30/18 at 18:30 TIARA CISNEROS MD May 31, 2018 10:57
--- NOTE | 2018-05-31 12:43 | CONS ---
Assessment/Plan Assessment/Plan Hospital Course (Demo Recall) IMPRESSION: 1. Tachycardia, most consistent with sinus tachycardia at this time; question if due to ongoing anxiety, pain or neurologic complaint. 2. Abnl ecg, assess for acute coronary syndrome. 3. Quadriplegia. 4. Pneumonia. 5. Resolving sepsis. 6. Urinary tract infection. 7. Neurogenic bladder. 8. Status post nephrectomy. Recc: -Tele -Continue atenolol and follow HR closely -Continue abx's and f/u cx data Consultation Date/Type/Reason Admit Date/Time May 14, 2018 at 18:34 Initial Consult Date 05/15/18 Type of Consult Cardiology Reason for Consultation tachycardia Requesting Provider: JOSÉ ANTONIO MIRZA MD Date/Time of Note DATE: 05/31/18 TIME: 12:40 Exam/Review of Systems Vital Signs Vitals Vital Signs Date Temp Pulse Resp B/P (MAP) Pulse Ox O2 O2 Flow FiO2 Time Delivery Rate 05/31/18 100.9 103 18 108/71 100 Mechanica 11:59 (83) l Ventilato r 05/31/18 30 11:13 Intake and Output 05/30/18 05/30/18 05/31/18 1515:00 23:00 07:00 IntakeIntake Total 1360 ml 1150 ml OutputOutput Total 500 ml 650 ml BalanceBalance 860 ml 500 ml Exam Exam Review of Systems: CONSTITUTIONAL: No fevers, chills. PULMONARY: No sob CARDIOVASCULAR: No chest pain/palpitations GASTROINTESTINAL: No nausea/vomiting. GENITOURINARY: No hematuria/dysuria. MUSCULOSKELETAL: No myagias/arthalgias. PSYCHIATRIC: The patient denies depression. NEUROLOGIC: No weakness Constitutional: alert Psych: no complaints Head: normocephalic ENMT: mucosa pink and moist Neck: supple, jvd Respiratory: diminished breath sounds Cardiovascular: regular rate and rhythm Gastrointestinal: soft, non-tender Musculoskeletal: muscle tone Extremities: edema (none) Neurological: other (No focal deficits) Labs Result Diagram: 05/30/18 1042 05/30/18 1042 Medications Medications Current Medications IV Flush (NS 3 ml) 3 ml PER PROTOCOL IV ; Start 05/14/18 at 18:30 Lorazepam (Ativan) 0.5 mg Q6H PRN IV .ANXIETY Last administered on 05/20/18at 22:26; Admin Dose 0.5 MG; Start 05/14/18 at 18:30 Ondansetron HCl (Zofran Inj) 4 mg Q6H PRN IV NAUSEA/VOMITING; Start 05/14/18 at 18:30 Acetaminophen/ Hydrocodone Bitart ([place] (5/325)) 1 tab Q6H PRN PO .PAIN 4-6; Start 05/14/18 at 18:30 Acetaminophen/ Hydrocodone Bitart ([place] (5/325)) 2 tab Q6H PRN PO .PAIN 7-10 Last administered on 05/24/18 08:15; Admin Dose 2 TAB; Start 05/14/18 at 18:30 Hydromorphone HCl (Dilaudid) 0.5 mg Q4H PRN IV .PAIN 7-10 Last administered on 05/31/18 05:11; Admin Dose 0.5 MG; Start 05/14/18 at 18:30 Docusate Sodium (Colace) 100 mg Q12H PRN PO .CONSTIPATION; Start 05/14/18 at 18:30 Magnesium Hydroxide (Milk Of Mag) 30 ml DAILY PRN PO .CONSTIPATION; Start 05/14/18 at 18:30 Famotidine (Pepcid) 20 mg DAILY PO Last administered on 05/31/18 08:46; Admin Dose 20 MG; Start 05/14/18 at 21:00 Enoxaparin Sodium (Lovenox) 30 mg DAILY SC Last administered on 05/31/18 08:48; Admin Dose 30 MG; Start 05/15/18 at 09:00 Miscellaneous Information (Pending [facility] Order For Wound Care) This patient noriega... PRN PRN XX WOUND CARE; Start 05/14/18 at 23:00 Acetaminophen (Tylenol Liquid) 650 mg Q6 PRN PO MILD PAIN(1-3)OR ELEVATED TEMP Last administered on 05/16/18 21:13; Admin Dose 650 MG; Start 05/15/18 at 07:00 Albuterol (Ventolin Hfa) 4 puff Q6H RESP THERAPY INH Last administered on 05/31/18 08:03; Admin Dose 4 PUFF; Start 05/15/18 at 14:00 Ipratropium [place] (Atrovent Hfa) 4 puff Q6H RESP THERAPY INH Last administered on 05/31/18 08:03; Admin Dose 4 PUFF; Start 05/15/18 at 14:00 Collagenase (Santyl) 1 applic DAILY TOP Last administered on 05/31/18 08:44; Admin Dose 1 APPLIC; Start 05/15/18 at 13:00 Multivit/Ca Carb/ B Cmplx/FA/Prenat ([place]ilibeth-Linn) 1 tab DAILY GTB Last administered on 05/31/18 08:46; Admin Dose 1 TAB; Start 05/16/18 at 09:00 Zinc Sulfate (Zinc Sulfate) 220 mg DAILY GTB Last administered on 05/31/18 08:45; Admin Dose 220 MG; Start 05/16/18 at 09:00 Ascorbic Acid (Vitamin C) 250 mg DAILY GTB Last administered on 05/31/18 08:45; Admin Dose 250 MG; Start 05/16/18 at 09:00 Chlorhexidine Gluconate (Peridex) 15 ml Q12 MM Last administered on 05/31/18 08:44; Admin Dose 15 ML; Start 05/15/18 at 16:30 Levetiracetam (Keppra Liquid) 500 mg Q12 GTB Last administered on 05/31/18 08:44; Admin Dose 500 MG; Start 05/15/18 at 16:30 Quetiapine Fumarate (Seroquel) 50 mg BID GTB Last administered on 05/31/18 08:45; Admin Dose 50 MG; Start 05/15/18 at 21:00 IV Flush (NS 10 ml) 10 ml PRN PRN IV IV PROTOCOL; Start 05/15/18 at 18:30 Docusate Sodium (Colace Liquid Cup) 100 mg BID GTB Last administered on 05/31/18 08:44; Admin Dose 100 MG; Start 05/15/18 at 21:00 Vancomycin HCl (Vanco Iv Per Pharmacy) VANCOMYCIN PER PHARMACY PER PROTOCOL XX ; Start 05/29/18 at 21:00 Vancomycin HCl 250 ml @ 125 mls/hr Q36H IVPB Last administered on 05/31/18 05:12; Admin Dose 125 MLS/HR; Start 05/31/18 at 06:00 Sodium Bicarbonate 50 meq/Dextrose 1,000 ml @ 80 mls/hr [id number] IV Last administered on 4/25/19at 11:33; Admin Dose 80 MLS/HR; Start 05/30/18 at 13:30; Stop 06/01/18 at 02:59 Meropenem/Sodium Chloride 50 ml @ 100 mls/hr Q12 IVPB Last administered on 05/31/18at 08:45; Admin Dose 100 MLS/HR; Start 05/30/18 at 21:00 Atenolol (Tenormin) 12.5 mg BID GTB Last administered on 05/31/18at 08:46; Admin Dose 12.5 MG; Start 05/30/18 at 21:00 ZEESHAN NUNEZ May 31, 2018 12:43
--- NOTE | 2018-05-31 14:13 | RADRPT ---
Echocardiogram Report Patient Name: ANGIE COPPOLAPatient ID: [id number] : 1975 (42y 10m)Study Date: 05/31/2018 7:54:12 AM Gender: MAccession #: [id number] Tech: Gagan Ortiz AMAURY Location: [facility] Ref.Physician: ZEESHAN ARGUETA Height(Cm): BSA: Weight(Kg): Quality: Technically Difficult StudyAccount #: Procedures: Echocardiographic Report: Transthoracic echocardiogram with complete 2D, M-Mode, and doppler examination. Indications: Tachycardia. Measurements: 2D/M Mode Doppler Measurement Value Normal Range Measurement Value Normal Range LVIDd 2D 4.3 [ 4.2 - 5.8 ] cm AV Peak Markus 1.5 [ 100.0 - 170.0 ] cm/sec LVIDs 2D 2.9 [ 2.5 - 4.0 ] cm AV Peak PG 9.0 [ 2.0 - 9.0 ] mmHg LVPWd 2D 1.1 [ 0.6 - 1.0 ] cm LVOT Peak Markus 1.1 [ 70.0 - 110.0 ] cm/sec IVSd 2D 1.4 [ 0.6 - 1.0 ] cm LVOT Peak PG 5.0 [ 2.0 - 6.0 ] mmHg AoR Diam 2D 3.0 [ 2.6 - 3.4 ] cm TR Peak Markus 3.0 [ 100.0 - 280.0 ] cm/sec EDV 2D 82.2 [ 62.0 - 150.0 ] ml TR Peak PG 37.0 mmHg ESV 2D 32.5 [ 21.0 - 61.0 ] ml RVSP 40.0 [ 10.0 - 36.0 ] mmHg EF 2D 60.5 [ 52.0 - 72.0 ] percent RA Pressure 3.0 mmHg LA Dimen 2D 3.2 [ 3.0 - 4.0 ] cm Findings: Left Ventricle: Normal left ventricular systolic function. Normal left ventricular cavity size. Moderate asymmetric septal hypertrophy. Ejection fraction is visually estimated at 55-60 %. Abnormal Diastolic Function. Right Ventricle: Normal right ventricular size. Normal right ventricular systolic function. Left Atrium: The left atrium is normal in size. Right Atrium: The right atrium is normal in size. Mitral Valve: Normal appearance of the mitral valve. Mild mitral annular calcification. Trace mitral regurgitation. Aortic Valve: No significant aortic stenosis or insufficiency. Aortic cusps appear mildly calcified. Tricuspid Valve: Normal appearance of the tricuspid valve. Estimated peak PA systolic pressure 40 mmHg. There is mild tricuspid regurgitation. Pulmonic Valve: Normal pulmonic valve appearance. Pericardium: Normal pericardium with no significant pericardial effusion. Aorta: Normal aortic root. IVC: Normal IVC with respiratory collapse, however patient on ventilator. Conclusions: Normal left ventricular systolic function. Normal left ventricular cavity size. Moderate asymmetric septal hypertrophy. Ejection fraction is visually estimated at 55-60 %. Abnormal Diastolic Function. Normal appearance of the mitral valve. Mild mitral annular calcification. Trace mitral regurgitation. Normal appearance of the tricuspid valve. Estimated peak PA systolic pressure 40 mmHg. There is mild tricuspid regurgitation. Electronically Signed By: Zeeshan Argueta 2018-05-31 14:13:27 PDT
--- NOTE | 2018-05-31 15:06 | CONS ---
Assessment/Plan Assessment/Plan Hospital Course (Demo Recall) Patient is still having fevers with a T-max 100.9 this afternoon. Blood cultures from yesterday negative urine culture pending. He was started on meropenem and vancomycin. Microbiology: Urine culture on admission grew Proteus mirabilis, sputum culture Providencia, blood culture grew staph sp. 1 out of 2 sets Indwelling: Trach, PEG, PICC line, suprapubic catheter Allergies: Tetracycline Antimicrobials: completed Physical examination: Chronically ill-appearing middle-aged man who is in no distress. Head atraumatic normocephalic neck is supple chest rise symmetrical breath sounds diminished bases. Heart: S1-S2. Abdomen soft bowel sounds present. Extremities wasted without cyanosis Assessment: 1. Sepsis 2. S/p bacteremia, cw contaminant 2. S/p healthcare associated pneumonia 3. S/p Urinary tract infection, poss recurrent 4. Chronic respiratory failure and dysphagia 5. Acute on chronic kidney disease 6. Neurogenic bladder status post suprapubic catheter placement 7. Incomplete quadriplegia 8. History of nephrectomy 9. History of scabies 10. Multiple chronic wounds Plan: Clinically unchanged, cxr noted, continue on broad-spectrum antibiotics and add Diflucan, f/u urine cx Consultation Date/Type/Reason Admit Date/Time May 14, 2018 at 18:34 Initial Consult Date 05/15/18 Type of Consult id Requesting Provider: JOSÉ ANTONIO MIRZA MD Date/Time of Note DATE: 05/31/18 TIME: 15:04 Exam/Review of Systems Exam Vitals Vital Signs Date Temp Pulse Resp B/P (MAP) Pulse Ox O2 O2 Flow FiO2 Time Delivery Rate 05/31/18 104 13:22 05/31/18 28 95 30 13:22 05/31/18 100.9 108/71 Mechanica 11:59 (83) l Ventilato r Intake and Output 05/30/18 05/30/18 05/31/18 1515:00 23:00 07:00 IntakeIntake Total 1360 ml 1150 ml OutputOutput Total 500 ml 650 ml BalanceBalance 860 ml 500 ml Results Result Diagram: 05/30/18 1042 05/30/18 1042 Medications Medication Current Medications IV Flush (NS 3 ml) 3 ml PER PROTOCOL IV ; Start 05/14/18 at 18:30 Lorazepam (Ativan) 0.5 mg Q6H PRN IV .ANXIETY Last administered on 05/20/18 22:26; Admin Dose 0.5 MG; Start 05/14/18 at 18:30 Ondansetron HCl (Zofran Inj) 4 mg Q6H PRN IV NAUSEA/VOMITING; Start 05/14/18 at 18:30 Acetaminophen/ Hydrocodone Bitart ([place] (5/325)) 1 tab Q6H PRN PO .PAIN 4-6; Start 05/14/18 at 18:30 Acetaminophen/ Hydrocodone Bitart ([place] (5/325)) 2 tab Q6H PRN PO .PAIN 7-10 Last administered on 05/24/18 08:15; Admin Dose 2 TAB; Start 05/14/18 at 18:30 Hydromorphone HCl (Dilaudid) 0.5 mg Q4H PRN IV .PAIN 7-10 Last administered on 05/31/18 05:11; Admin Dose 0.5 MG; Start 05/14/18 at 18:30 Docusate Sodium (Colace) 100 mg Q12H PRN PO .CONSTIPATION; Start 05/14/18 at 18:30 Magnesium Hydroxide (Milk Of Mag) 30 ml DAILY PRN PO .CONSTIPATION; Start 05/14/18 at 18:30 Famotidine (Pepcid) 20 mg DAILY PO Last administered on 05/31/18 08:46; Admin Dose 20 MG; Start 05/14/18 at 21:00 Enoxaparin Sodium (Lovenox) 30 mg DAILY SC Last administered on 05/31/18 08:48; Admin Dose 30 MG; Start 05/15/18 at 09:00 Miscellaneous Information (Pending Santyl Order For Wound Care) This patient noriega... PRN PRN XX WOUND CARE; Start 05/14/18 at 23:00 Acetaminophen (Tylenol Liquid) 650 mg Q6 PRN PO MILD PAIN(1-3)OR ELEVATED TEMP Last administered on 05/16/18 21:13; Admin Dose 650 MG; Start 05/15/18 at 07:00 Albuterol (Ventolin Hfa) 4 puff Q6H RESP THERAPY INH Last administered on 05/31/18 13:24; Admin Dose 4 PUFF; Start 05/15/18 at 14:00 Ipratropium [place] (Atrovent Hfa) 4 puff Q6H RESP THERAPY INH Last administered on 05/31/18 13:24; Admin Dose 4 PUFF; Start 05/15/18 at 14:00 Collagenase (Santyl) 1 applic DAILY TOP Last administered on 05/31/18 08:44; Admin Dose 1 APPLIC; Start 05/15/18 at 13:00 Multivit/Ca Carb/ B Cmplx/FA/Prenat (Lilibeth-Linn) 1 tab DAILY GTB Last administered on 05/31/18 08:46; Admin Dose 1 TAB; Start 05/16/18 at 09:00 Zinc Sulfate (Zinc Sulfate) 220 mg DAILY GTB Last administered on 05/31/18 08:45; Admin Dose 220 MG; Start 05/16/18 at 09:00 Ascorbic Acid (Vitamin C) 250 mg DAILY GTB Last administered on 05/31/18 08:45; Admin Dose 250 MG; Start 05/16/18 at 09:00 Chlorhexidine Gluconate (Peridex) 15 ml Q12 MM Last administered on 05/31/18 08:44; Admin Dose 15 ML; Start 05/15/18 at 16:30 Levetiracetam (Keppra Liquid) 500 mg Q12 GTB Last administered on 05/31/18 08:44; Admin Dose 500 MG; Start 05/15/18 at 16:30 Quetiapine Fumarate (Seroquel) 50 mg BID GTB Last administered on 05/31/18 08:45; Admin Dose 50 MG; Start 05/15/18 at 21:00 IV Flush (NS 10 ml) 10 ml PRN PRN IV IV PROTOCOL; Start 05/15/18 at 18:30 Docusate Sodium (Colace Liquid Cup) 100 mg BID GTB Last administered on 05/31/18 08:44; Admin Dose 100 MG; Start 05/15/18 at 21:00 Vancomycin HCl (Vanco Iv Per Pharmacy) VANCOMYCIN PER PHARMACY PER PROTOCOL XX ; Start 05/29/18 at 21:00 Vancomycin HCl 250 ml @ 125 mls/hr Q36H IVPB Last administered on 05/31/18 05:12; Admin Dose 125 MLS/HR; Start 05/31/18 at 06:00 Sodium Bicarbonate 50 meq/Dextrose 1,000 ml @ 80 mls/hr [id number] IV Last administered on 05/31/18at 11:33; Admin Dose 80 MLS/HR; Start 05/30/18 at 13:30; Stop 06/01/18 at 02:59 Meropenem/Sodium Chloride 50 ml @ 100 mls/hr Q12 IVPB Last administered on 05/31/18at 08:45; Admin Dose 100 MLS/HR; Start 05/30/18 at 21:00 Atenolol (Tenormin) 12.5 mg BID GTB Last administered on 05/31/18at 08:46; Admin Dose 12.5 MG; Start 05/30/18 at 21:00 REGINALDO CHERY NP May 31, 2018 15:06
[2018-05-31] MEDS: FLUCONAZOLE 100 MG TAB PO SCH (16:03)
[2018-05-31] MEDS: HYDROCODONE/APAP (5/325) TAB PO PRN (16:03)
--- NOTE | 2018-05-31 20:27 | PN ---
Date/Time of Note Date/Time of Note DATE: 05/31/18 TIME: 20:21 Assessment/Plan VTE Prophylaxis Risk score (from Nsg)>0 risk: 6 SCD applied (from Nsg): Yes Lines/Catheters IV Catheter Type (from Nrsg): PICC Line Urinary Cath still in place: Yes (suprapubic) Assessment/Plan Result Diagram: 05/30/18 1042 05/30/18 1042 Subjective 24 Hr Interval Summary Subjective hx not possible: pt non-verbal Constitutional: requiring O2 Eyes: no complaints ENT: no complaints Respiratory: no complaints Cardiovascular: no complaints Gastrointestinal: no complaints Genitourinary: no complaints Musculoskeletal: restricted range of motion Exam/Review of Systems Exam Vitals Vital Signs Date Temp Pulse Resp B/P (MAP) Pulse Ox O2 O2 Flow FiO2 Time Delivery Rate 05/31/18 105 27 96 30 16:44 05/31/18 100.8 113/73 [place] 15:43 (86) l Ventilato r Intake and Output 05/30/18 05/30/18 05/31/18 1515:00 23:00 07:00 IntakeIntake Total 1360 ml 1150 ml OutputOutput Total 500 ml 650 ml BalanceBalance 860 ml 500 ml Constitutional: alert, well developed, non-verbal, frail Psych: nl mood/affect Eyes: nl lids, nl sclera ENMT: nl external ears & nose Neck: non-tender Respiratory: clear to auscultation, other (trach ) Cardiovascular: nl pulses, other (s1s2) Gastrointestinal: soft, non-tender, other (gt) Musculoskeletal: muscle weakness, range of motion Extremities: normal pulses Neurological: confused Skin: other Medications Medication Current Medications IV Flush (NS 3 ml) 3 ml PER PROTOCOL IV ; Start 05/14/18 at 18:30 Lorazepam (Ativan) 0.5 mg Q6H PRN IV .ANXIETY Last administered on 05/20/18at 22:26; Admin Dose 0.5 MG; Start 05/14/18 at 18:30 Ondansetron HCl (Zofran Inj) 4 mg Q6H PRN IV NAUSEA/VOMITING; Start 05/14/18 at 18:30 Acetaminophen/ Hydrocodone Bitart ([place] (5/325)) 1 tab Q6H PRN PO .PAIN 4-6 Last administered on 05/31/18 16:03; Admin Dose 1 TAB; Start 05/14/18 at 18:30 Acetaminophen/ Hydrocodone Bitart ([place] (5/325)) 2 tab Q6H PRN PO .PAIN 7-10 Last administered on 05/24/18 08:15; Admin Dose 2 TAB; Start 05/14/18 at 18:30 Hydromorphone HCl (Dilaudid) 0.5 mg Q4H PRN IV .PAIN 7-10 Last administered on 05/31/18 05:11; Admin Dose 0.5 MG; Start 05/14/18 at 18:30 Docusate Sodium (Colace) 100 mg Q12H PRN PO .CONSTIPATION; Start 05/14/18 at 18:30 Magnesium Hydroxide (Milk Of Mag) 30 ml DAILY PRN PO .CONSTIPATION; Start 05/14/18 at 18:30 Famotidine (Pepcid) 20 mg DAILY PO Last administered on 05/31/18 08:46; Admin Dose 20 MG; Start 05/14/18 at 21:00 Enoxaparin Sodium (Lovenox) 30 mg DAILY SC Last administered on 05/31/18 08:48; Admin Dose 30 MG; Start 05/15/18 at 09:00 Miscellaneous Information (Pending Santyl Order For Wound Care) This patient noriega... PRN PRN XX WOUND CARE; Start 05/14/18 at 23:00 Acetaminophen (Tylenol Liquid) 650 mg Q6 PRN PO MILD PAIN(1-3)OR ELEVATED TEMP Last administered on 05/16/18 21:13; Admin Dose 650 MG; Start 05/15/18 at 07:00 Albuterol (Ventolin Hfa) 4 puff Q6H RESP THERAPY INH Last administered on 05/31/18 19:47; Admin Dose 4 PUFF; Start 05/15/18 at 14:00 Ipratropium [place] (Atrovent Hfa) 4 puff Q6H RESP THERAPY INH Last ad ministered on 05/31/18 19:47; Admin Dose 4 PUFF; Start 05/15/18 at 14:00 Collagenase (Santyl) 1 applic DAILY TOP Last administered on 05/31/18 08:44; Admin Dose 1 APPLIC; Start 05/15/18 at 13:00 Multivit/Ca Carb/ B Cmplx/FA/Prenat ([place]) 1 tab DAILY GTB Last administered on 05/31/18 08:46; Admin Dose 1 TAB; Start 05/16/18 at 09:00 Zinc Sulfate (Zinc Sulfate) 220 mg DAILY GTB Last administered on 05/31/18 08:45; Admin Dose 220 MG; Start 05/16/18 at 09:00 Ascorbic Acid (Vitamin C) 250 mg DAILY GTB Last administered on 05/31/18 08:45; Admin Dose 250 MG; Start 05/16/18 at 09:00 Chlorhexidine Gluconate (Peridex) 15 ml Q12 MM Last administered on 05/31/18 08:44; Admin Dose 15 ML; Start 05/15/18 at 16:30 Levetiracetam (Keppra Liquid) 500 mg Q12 GTB Last administered on 05/31/18 08: 44; Admin Dose 500 MG; Start 05/15/18 at 16:30 Quetiapine Fumarate (Seroquel) 50 mg BID GTB Last administered on 05/31/18 08:45; Admin Dose 50 MG; Start 05/15/18 at 21:00 IV Flush (NS 10 ml) 10 ml PRN PRN IV IV PROTOCOL; Start 05/15/18 at 18:30 Docusate Sodium (Colace Liquid Cup) 100 mg BID GTB Last administered on 05/31/18 08:44; Admin Dose 100 MG; Start 05/15/18 at 21:00 Vancomycin HCl (Vanco Iv Per Pharmacy) VANCOMYCIN PER PHARMACY PER PROTOCOL XX ; Start 05/29/18 at 21:00 Vancomycin HCl 250 ml @ 125 mls/hr Q36H IVPB Last administered on 05/31/18 05:12; Admin Dose 125 MLS/HR; Start 05/31/18 at 06:00 Sodium Bicarbonate 50 meq/Dextrose 1,000 ml @ 80 mls/hr [id number] IV Last administered on 05/31/18 11:33; Admin Dose 80 MLS/HR; Start 05/30/18 at 13:30; Stop 06/01/18 at 02:59 Meropenem/Sodium Chloride 50 ml @ 100 mls/hr Q12 IVPB Last administered on 05/31/18 08:45; Admin Dose 100 MLS/HR; Start 05/30/18 at 21:00 Atenolol (Tenormin) 12.5 mg BID GTB Last administered on 05/31/18at 08:46; Admin Dose 12.5 MG; Start 05/30/18 at 21:00 Fluconazole (Diflucan) 100 mg DAILY PO Last administered on 05/31/18at 16:03; Admin Dose 100 MG; Start 05/31/18 at 15:30 NAE VELAZCO May 31, 2018 20:27
[2018-06-01] VITALS (21 sets, daily range): BP systolic 91–105; BP diastolic 52–64; PULSE 72–102; RESP 18–34
[2018-06-01] MEDS: ALBUTEROL HFA 8 GM INHALER INH SCH ×4 (01:15→20:05)
[2018-06-01] MEDS: IPRATROPIUM (HFA) 12.9 GM INHALER INH SCH ×4 (01:15→20:05)
[2018-06-01] MEDS: HYDROmorphONE 0.5 MG/0.5 ML SYG IV PRN ×5 (04:24→21:30)
[2018-06-01] MEDS: FAMOTIDINE 20 MG TAB PO SCH (08:59)
[2018-06-01] MEDS: QUETIAPINE 25 MG TAB GTB SCH ×2 (08:59→21:30)
[2018-06-01] MEDS: FLUCONAZOLE 100 MG TAB PO SCH (08:59)
[2018-06-01] MEDS: CHLORHEXIDINE GLUCONATE 15 ML UD CUP MM SCH ×2 (08:59→21:30)
[2018-06-01] MEDS: MULTIVIT/CA CARB/B CMPLX/FA TAB GTB SCH (08:59)
[2018-06-01] MEDS: DOCUSATE SODIUM 10 MG/ML (10ML CUP) GTB SCH ×2 (08:59→21:30)
[2018-06-01] MEDS: ZINC SULFATE 220 MG CAP GTB SCH (08:59)
[2018-06-01] MEDS: ASCORBIC ACID 250 MG TAB GTB SCH (08:59)
[2018-06-01] MEDS: LEVETIRACETAM (100 MG/ML) 5ML CUP GTB SCH ×2 (08:59→21:30)
[2018-06-01] MEDS: MEROPENEM 1 GM/50ML(PMX) 50 ML IVPB SCH (09:00)
[2018-06-01] MEDS: COLLAGENASE 5 GM (UD JAR) TOP SCH (09:00)
[2018-06-01] MEDS: ATENOLOL 25 MG TAB GTB SCH ×2 (09:00→21:30)
[2018-06-01] MEDS: BALSAM PERU/CASTOR OIL 60 GM TUBE TOP SCH (09:01)
[2018-06-01] MEDS: ENOXAPARIN 30 MG/0.3 ML SYG SC SCH (09:02)
--- NOTE | 2018-06-01 13:28 | CONS ---
Assessment/Plan Assessment/Plan Assessment/Plan (Daily) 1. Acute on chronic renal failure 2. Hypernatremia- Mild 3. UTI 4. history of paraplegia secondary to cervical spine injury, ventilator dependent respiratory failure with striking ostomy, dysphagia with G-tube, neurogenic bladder with suprapubic catheter, right nephrectomy, left renal renal nephrolithiasis with history of lithotripsy and stent placement and urethral stent removal, history of bipolar disorder 5. acute hyperkalemia - Improved Plan: BUN/Cr 80/1,79- s/p Bicarbonate drip x 3 liter s/p IV abx now, monitor electrolytes and replace as needed possibel transfer to [place] will follow up Consultation Date/Type/Reason Admit Date/Time May 14, 2018 at 18:34 Initial Consult Date 05/15/18 Type of Consult NEPHROLOGY Requesting Provider: JOSÉ ANTONIO MIRZA MD Date/Time of Note DATE: 06/01/18 TIME: 13:28 24 HR Interval Summary Free Text/Dictation remained stable, paln for transfer to [place] Exam/Review of Systems Exam Vitals Vital Signs Date Temp Pulse Resp B/P (MAP) Pulse Ox O2 O2 Flow FiO2 Time Delivery Rate 06/01/18 86 21 97 30 13:03 06/01/18 Mechanical 12:42 Ventilator 06/01/18 98.2 100/64 11:31 (76) Intake and Output 05/31/18 05/31/18 06/01/18 1515:00 23:00 07:00 IntakeIntake Total 50 ml 1470 ml 840 ml OutputOutput Total 1300 ml 1000 ml BalanceBalance 50 ml 170 ml -160 ml Results Result Diagram: 06/01/18 0553 06/01/18 0553 Results 24hrs Laboratory Tests Test 05/31/18 20:44 06/01/18 05:53 06/01/18 06:03 White Blood Count 4.4 #L 3.4 #L Red Blood Count 2.56 L 2.45 L Hemoglobin 7.5 L 7.1 L Hematocrit 24.9 L 24.2 L Mean Corpuscular Volume 97.3 98.8 Mean Corpuscular Hemoglobin 29.3 29.0 Mean Corpuscular 30.1 L 29.3 L Hemoglobin Concent Red Cell Distribution Width 17.9 H 17.8 H Platelet Count 121 L 113 L Mean Platelet Volume 13.2 H 13.7 H Immature Granulocytes % 0.200 0.300 Neutrophils % 69.7 62.6 Lymphocytes % 9.6 L 8.0 L Monocytes % 8.0 8.6 Eosinophils % 12.3 H 20.2 H Basophils % 0.2 0.3 Nucleated Red Blood Cells % 0.0 0.0 Immature Granulocytes # 0.010 0.010 Neutrophils # 3.1 2.1 Lymphocytes # 0.4 L 0.3 L Monocytes # 0.4 0.3 Eosinophils # 0.5 0.7 H Basophils # 0.0 0.0 Nucleated Red Blood Cells # 0.0 0.0 Sodium Level 145 H 146 H Potassium Level 5.0 4.9 Chloride Level 113 H 116 H Carbon Dioxide Level 21 21 Anion Gap 11 9 Blood Urea Nitrogen 76 H 80 H Creatinine 1.76 H 1.79 H Est Glomerular Filtrat 43 L 42 L Rate mL/min Glucose Level 121 127 Calcium Level 9.4 9.4 Lab Scanned Report REFERENCE LAB Medications Medication Current Medications IV Flush (NS 3 ml) 3 ml PER PROTOCOL IV ; Start 05/14/18 at 18:30 Lorazepam (Ativan) 0.5 mg Q6H PRN IV .ANXIETY Last administered on 05/20/18 22:26; Admin Dose 0.5 MG; Start 05/14/18 at 18:30 Ondansetron HCl (Zofran Inj) 4 mg Q6H PRN IV NAUSEA/VOMITING; Start 05/14/18 at 18:30 Acetaminophen/ Hydrocodone Bitart ([place] (5/325)) 1 tab Q6H PRN PO .PAIN 4-6 Last administered on 05/31/18 16:03; Admin Dose 1 TAB; Start 05/14/18 at 18:30 Acetaminophen/ Hydrocodone Bitart ([place] (5/325)) 2 tab Q6H PRN PO .PAIN 7-10 Last administered on 05/24/18 08:15; Admin Dose 2 TAB; Start 05/14/18 at 18:30 Hydromorphone HCl (Dilaudid) 0.5 mg Q4H PRN IV .PAIN 7-10 Last administered on 06/01/18 13:13; Admin Dose 0.5 MG; Start 05/14/18 at 18:30 Docusate Sodium (Colace) 100 mg Q12H PRN PO .CONSTIPATION; Start 05/14/18 at 18:30 Magnesium Hydroxide (Milk Of Mag) 30 ml DAILY PRN PO .CONSTIPATION; Start at 18:30 Famotidine (Pepcid) 20 mg DAILY PO Last administered on 06/01/18 08:59; Admin Dose 20 MG; Start 05/14/18 at 21:00 Enoxaparin Sodium (Lovenox) 30 mg DAILY SC Last administered on 06/01/18 09:02; Admin Dose 30 MG; Start 05/15/18 at 09:00 Miscellaneous Information (Pending Santyl Order For Wound Care) This patient noriega... PRN PRN XX WOUND CARE; Start 05/14/18 at 23:00 Acetaminophen (Tylenol Liquid) 650 mg Q6 PRN PO MILD PAIN(1-3)OR ELEVATED TEMP Last administered on 05/16/18 21:13; Admin Dose 650 MG; Start 05/15/18 at 07:00 Albuterol (Ventolin Hfa) 4 puff Q6H RESP THERAPY INH Last administered on 06/01/18 13:09; Admin Dose 4 PUFF; Start 05/15/18 at 14:00 Ipratropium [place] (Atrovent Hfa) 4 puff Q6H RESP THERAPY INH Last administered on 06/01/18 13:08; Admin Dose 4 PUFF; Start 05/15/18 at 14:00 Collagenase (Santyl) 1 applic DAILY TOP Last administered on 06/01/18 09:00; A dmin Dose 1 APPLIC; Start 05/15/18 at 13:00 Multivit/Ca Carb/ B Cmplx/FA/Prenat ([place]ilib[place]-Linn) 1 tab DAILY GTB Last administered on 06/01/18 08:59; Admin Dose 1 TAB; Start 05/16/18 at 09:00 Zinc Sulfate (Zinc Sulfate) 220 mg DAILY GTB Last administered on 06/01/18 08:59; Admin Dose 220 MG; Start 05/16/18 at 09:00 Ascorbic Acid (Vitamin C) 250 mg DAILY GTB Last administered on 06/01/18 08:59; Admin Dose 250 MG; Start 05/16/18 at 09:00 Chlorhexidine Gluconate (Peridex) 15 ml Q12 MM Last administered on 06/01/18 08:59; Admin Dose 15 ML; Start 05/15/18 at 16:30 Levetiracetam (Keppra Liquid) 500 mg Q12 GTB Last administered on 06/01/18 08:59; Admin Dose 500 MG; Start 05/15/18 at 16:30 Quetiapine Fumarate (Seroquel) 50 mg BID GTB Last administered on 06/01/18 08:59; Admin Dose 50 MG; Start 05/15/18 at 21:00 IV Flush (NS 10 ml) 10 ml PRN PRN IV IV PROTOCOL; Start 05/15/18 at 18:30 Docusate Sodium (Colace Liquid Cup) 100 mg BID GTB Last administered on 06/01/18 08:59; Admin Dose 100 MG; Start 05/15/18 at 21:00 Vancomycin HCl (Vanco Iv Per Pharmacy) VANCOMYCIN PER PHARMACY PER PROTOCOL XX ; Start 05/29/18 at 21:00 Vancomycin HCl 250 ml @ 125 mls/hr Q36H IVPB Last administered on 05/31/18 05:12; Admin Dose 125 MLS/HR; Start 05/31/18 at 06:00 Meropenem/Sodium Chloride 50 ml @ 100 mls/hr Q12 IVPB Last administered on 06/01/18 09:00; Admin Dose 100 MLS/HR; Start 05/30/18 at 21:00 Atenolol (Tenormin) 12.5 mg BID GTB Last administered on 06/01/18 09:00; Admin Dose 12.5 MG; Start 05/30/18 at 21:00 Fluconazole (Diflucan) 100 mg DAILY PO Last administered on 06/01/18 08:59; A dmin Dose 100 MG; Start 05/31/18 at 15:30 TIARA CISNEROS MD Jun 01, 2018 13:28
--- NOTE | 2018-06-01 13:38 | CONS ---
Assessment/Plan Assessment/Plan Hospital Course (Demo Recall) IMPRESSION: 1. Tachycardia, most consistent with sinus tachycardia at this time; question if due to ongoing anxiety, pain or neurologic complaint. 2. Abnl ecg, assess for acute coronary syndrome. 3. Quadriplegia. 4. Pneumonia. 5. Resolving sepsis. 6. Urinary tract infection. 7. Neurogenic bladder. 8. Status post nephrectomy. Recc: -Tele -Continue atenolol and follow HR closely which is improved -Continue abx's and f/u cx data Consultation Date/Type/Reason Admit Date/Time May 14, 2018 at 18:34 Initial Consult Date 05/15/18 Type of Consult Cardiology Reason for Consultation tachycardia Requesting Provider: JOSÉ ANTONIO MIRZA MD Date/Time of Note DATE: 06/01/18 TIME: 13:36 Exam/Review of Systems Vital Signs Vitals Vital Signs Date Temp Pulse Resp B/P (MAP) Pulse Ox O2 O2 Flow FiO2 Time Delivery Rate 06/01/18 86 21 97 30 13:03 06/01/18 Mechanical 12:42 Ventilator 06/01/18 98.2 100/64 11:31 (76) Intake and Output 05/31/18 05/31/18 06/01/18 1515:00 23:00 07:00 IntakeIntake Total 50 ml 1470 ml 840 ml OutputOutput Total 1300 ml 1000 ml BalanceBalance 50 ml 170 ml -160 ml Exam Exam Review of Systems: CONSTITUTIONAL: No fevers, chills. PULMONARY: No sob CARDIOVASCULAR: No chest pain/palpitations GASTROINTESTINAL: No nausea/vomiting. GENITOURINARY: No hematuria/dysuria. MUSCULOSKELETAL: No myagias/arthalgias. PSYCHIATRIC: The patient denies depression. NEUROLOGIC: No weakness Constitutional: alert Psych: no complaints Head: normocephalic ENMT: mucosa pink and moist Neck: supple, jvd (9 cm water) Respiratory: diminished breath sounds Cardiovascular: regular rate and rhythm Gastrointestinal: soft, non-tender Musculoskeletal: muscle tone (normal) Extremities: edema Neurological: other (No focal deficits) Labs Result Diagram: 06/01/18 0553 06/01/18 0553 Results 24hrs Laboratory Tests Test 05/31/18 20:44 06/01/18 05:53 06/01/18 06:03 White Blood Count 4.4 #L 3.4 #L Red Blood Count 2.56 L 2.45 L Hemoglobin 7.5 L 7.1 L Hematocrit 24.9 L 24.2 L Mean Corpuscular Volume 97.3 98.8 Mean Corpuscular Hemoglobin 29.3 29.0 Mean Corpuscular 30.1 L 29.3 L Hemoglobin Concent Red Cell Distribution Width 17.9 H 17.8 H Platelet Count 121 L 113 L Mean Platelet Volume 13.2 H 13.7 H Immature Granulocytes % 0.200 0.300 Neutrophils % 69.7 62.6 Lymphocytes % 9.6 L 8.0 L Monocytes % 8.0 8.6 Eosinophils % 12.3 H 20.2 H Basophils % 0.2 0.3 Nucleated Red Blood Cells % 0.0 0.0 Immature Granulocytes # 0.010 0.010 Neutrophils # 3.1 2.1 Lymphocytes # 0.4 L 0.3 L Monocytes # 0.4 0.3 Eosinophils # 0.5 0.7 H Basophils # 0.0 0.0 Nucleated Red Blood Cells # 0.0 0.0 Sodium Level 145 H 146 H Potassium Level 5.0 4.9 Chloride Level 113 H 116 H Carbon Dioxide Level 21 21 Anion Gap 11 9 Blood Urea Nitrogen 76 H 80 H Creatinine 1.76 H 1.79 H Est Glomerular Filtrat 43 L 42 L Rate mL/min Glucose Level 121 127 Calcium Level 9.4 9.4 Lab Scanned Report REFERENCE LAB Medications Medications Current Medications IV Flush (NS 3 ml) 3 ml PER PROTOCOL IV ; Start 05/14/18 at 18:30 Lorazepam (Ativan) 0.5 mg Q6H PRN IV .ANXIETY Last administered on 05/20/18 22:26; Admin Dose 0.5 MG; Start 05/14/18 at 18:30 Ondansetron HCl (Zofran Inj) 4 mg Q6H PRN IV NAUSEA/VOMITING; Start 05/14/18 at 18:30 Acetaminophen/ Hydrocodone Bitart ([place] (5/325)) 1 tab Q6H PRN PO .PAIN 4-6 Last administered on 05/31/18 16:03; Admin Dose 1 TAB; Start 05/14/18 at 18:30 Acetaminophen/ Hydrocodone Bitart ([place] (5/325)) 2 tab Q6H PRN PO .PAIN 7-10 Last administered on 05/24/18 08:15; Admin Dose 2 TAB; Start 05/14/18 at 18:30 Hydromorphone HCl (Dilaudid) 0.5 mg Q4H PRN IV .PAIN 7-10 Last administered on 06/01/18 13:13; Admin Dose 0.5 MG; Start 05/14/18 at 18:30 Docusate Sodium (Colace) 100 mg Q12H PRN PO .CONSTIPATION; Start 05/14/18 at 18:30 Magnesium Hydroxide (Milk Of Mag) 30 ml DAILY PRN PO .CONSTIPATION; Start 05/14/18 at 18:30 Famotidine (Pepcid) 20 mg DAILY PO Last administered on 06/01/18 08:59; Admin Dose 20 MG; Start 05/14/18 at 21:00 Enoxaparin Sodium (Lovenox) 30 mg DAILY SC Last administered on 06/01/18 09:02; Admin Dose 30 MG; Start 05/15/18 at 09:00 Miscellaneous Information (Pending Santyl Order For Wound Care) This patient noriega... PRN PRN XX WOUND CARE; Start 05/14/18 at 23:00 Acetaminophen (Tylenol Liquid) 650 mg Q6 PRN PO MILD PAIN(1-3)OR ELEVATED TEMP Last administered on 05/16/18 21:13; Admin Dose 650 MG; Start 05/15/18 at 07:00 Albuterol (Ventolin Hfa) 4 puff Q6H RESP THERAPY INH Last administered on 06/01/18 13:09; Admin Dose 4 PUFF; Start 05/15/18 at 14:00 Ipratropium [place] (Atrovent Hfa) 4 puff Q6H RESP THERAPY INH Last administered on 06/01/18 13:08; Admin Dose 4 PUFF; Start 05/15/18 at 14:00 Collagenase (Santyl) 1 applic DAILY TOP Last administered on 06/01/18 09:00; Admin Dose 1 APPLIC; Start 05/15/18 at 13:00 Multivit/Ca Carb/ B Cmplx/FA/Prenat ([place]ilib[place]-L[place]) 1 tab DAILY GTB Last administ ered on 06/01/18 08:59; Admin Dose 1 TAB; Start 05/16/18 at 09:00 Zinc Sulfate (Zinc Sulfate) 220 mg DAILY GTB Last administered on 06/01/18 08:59; Admin Dose 220 MG; Start 05/16/18 at 09:00 Ascorbic Acid (Vitamin C) 250 mg DAILY GTB Last administered on 06/01/18 08:59; Admin Dose 250 MG; Start 05/16/18 at 09:00 Chlorhexidine Gluconate (Peridex) 15 ml Q12 MM Last administered on 06/01/18 08:59; Admin Dose 15 ML; Start 05/15/18 at 16:30 Levetiracetam (Keppra Liquid) 500 mg Q12 GTB Last administered on 06/01/18 08:59; Admin Dose 500 MG; Start 05/15/18 at 16:30 Quetiapine Fumarate (Seroquel) 50 mg BID GTB Last administered on 06/01/18 08:59; Admin Dose 50 MG; Start 05/15/18 at 21:00 IV Flush (NS 10 ml) 10 ml PRN PRN IV IV PROTOCOL; Start 05/15/18 at 18:30 Docusate Sodium (Colace Liquid Cup) 100 mg BID GTB Last administered on 06/01/18 08:59; Admin Dose 100 MG; Start 05/15/18 at 21:00 Vancomycin HCl (Vanco Iv Per Pharmacy) VANCOMYCIN PER PHARMACY PER PROTOCOL XX ; Start 05/29/18 at 21:00 Vancomycin HCl 250 ml @ 125 mls/hr Q36H IVPB Last administered on 05/31/18 05:12; Admin Dose 125 MLS/HR; Start 05/31/18 at 06:00 Meropenem/Sodium Chloride 50 ml @ 100 mls/hr Q12 IVPB Last administered on 06/01/18 09:00; Admin Dose 100 MLS/HR; Start 05/30/18 at 21:00 Atenolol (Tenormin) 12.5 mg BID GTB Last administered on 06/01/18 09:00; Admin Dose 12.5 MG; Start 05/30/18 at 21:00 Fluconazole (Diflucan) 100 mg DAILY PO Last administered on 06/01/18 08:59; Admin Dose 100 MG; Start 05/31/18 at 15:30 ZEESHAN NUNEZ Jun 01, 2018 13:38
--- NOTE | 2018-06-01 13:57 | PN ---
Date/Time of Note Date/Time of Note DATE: 06/01/18 TIME: 13:57 Assessment/Plan VTE Prophylaxis Risk score (from Ns)>0 risk: 6 SCD applied (from Nsg): Yes Lines/Catheters IV Catheter Type (from Nrs): PICC Line Central line still needed: Yes Urinary Cath still in place: Yes (Suprapubic) Reason Cath still needed: urinary retention Assessment/Plan Assessment/Plan - S/p sepsis secondary to pneumonia, completed treatment with meropenem. Dr. Maciel is following in infection disease consultation. - Health care associated pneumonia - Proteus M UTI - Acute on chronic renal failure, continue IV fluids. Continue to monitor BUN and creatinine. Dr. Barker is following patient in nephrology consultation. - Ventilator dependent respiratory failure, continue pulmonary toilet and bronchodilators. Dr Ames is following in pulmonology consultation. - Neurogenic bladder with suprapubic catheter. - Left renal nephrolithiasis, hx of lithotripsy with insertion and subsequent removal of ureteral JJ stent. - Hx of right nephrectomy - Dysphagia with gastrostomy tube. - Multiple decubitus ulcers present on admission. Continue current care per wound consult recommendations, offloading air mattress, optimize nutrition. - Cervical spine injury with paraplegia. - Bipolar disorder with psychosis. Result Diagram: 06/01/18 0553 06/01/18 0553 Results 24hrs Laboratory Tests Test 05/31/18 20:44 06/01/18 05:53 06/01/18 06:03 White Blood Count 4.4 #L 3.4 #L Red Blood Count 2.56 L 2.45 L Hemoglobin 7.5 L 7.1 L Hematocrit 24.9 L 24.2 L Mean Corpuscular Volume 97.3 98.8 Mean Corpuscular Hemoglobin 29.3 29.0 Mean Corpuscular 30.1 L 29.3 L Hemoglobin Concent Red Cell Distribution Width 17.9 H 17.8 H Platelet Count 121 L 113 L Mean Platelet Volume 13.2 H 13.7 H Immature Granulocytes % 0.200 0.300 Neutrophils % 69.7 62.6 Lymphocytes % 9.6 L 8.0 L Monocytes % 8.0 8.6 Eosinophils % 12.3 H 20.2 H Basophils % 0.2 0.3 Nucleated Red Blood Cells % 0.0 0.0 Immature Granulocytes # 0.010 0.010 Neutrophils # 3.1 2.1 Lymphocytes # 0.4 L 0.3 L Monocytes # 0.4 0.3 Eosinophils # 0.5 0.7 H Basophils # 0.0 0.0 Nucleated Red Blood Cells # 0.0 0.0 Sodium Level 145 H 146 H Potassium Level 5.0 4.9 Chloride Level 113 H 116 H Carbon Dioxide Level 21 21 Anion Gap 11 9 Blood Urea Nitrogen 76 H 80 H Creatinine 1.76 H 1.79 H Est Glomerular Filtrat 43 L 42 L Rate mL/min Glucose Level 121 127 Calcium Level 9.4 9.4 Lab Scanned Report REFERENCE LAB Exam/Review of Systems Exam Vitals Vital Signs Date Temp Pulse Resp B/P (MAP) Pulse Ox O2 O2 Flow FiO2 Time Delivery Rate 06/01/18 86 21 97 30 13:03 06/01/18 Mechanical 12:42 Ventilator 06/01/18 98.2 100/64 11:31 (76) Intake and Output 05/31/18 05/31/18 06/01/18 1515:00 23:00 07:00 IntakeIntake Total 50 ml 1470 ml 840 ml OutputOutput Total 1300 ml 1000 ml BalanceBalance 50 ml 170 ml -160 ml Results Results 24hrs Laboratory Tests Test 05/31/18 20:44 06/01/18 05:53 06/01/18 06:03 White Blood Count 4.4 #L 3.4 #L Red Blood Count 2.56 L 2.45 L Hemoglobin 7.5 L 7.1 L Hematocrit 24.9 L 24.2 L Mean Corpuscular Volume 97.3 98.8 Mean Corpuscular Hemoglobin 29.3 29.0 Mean Corpuscular 30.1 L 29.3 L Hemoglobin Concent Red Cell Distribution Width 17.9 H 17.8 H Platelet Count 121 L 113 L Mean Platelet Volume 13.2 H 13.7 H Immature Granulocytes % 0.200 0.300 Neutrophils % 69.7 62.6 Lymphocytes % 9.6 L 8.0 L Monocytes % 8.0 8.6 Eosinophils % 12.3 H 20.2 H Basophils % 0.2 0.3 Nucleated Red Blood Cells % 0.0 0.0 Immature Granulocytes # 0.010 0.010 Neutrophils # 3.1 2.1 Lymphocytes # 0.4 L 0.3 L Monocytes # 0.4 0.3 Eosinophils # 0.5 0.7 H Basophils # 0.0 0.0 Nucleated Red Blood Cells # 0.0 0.0 Sodium Level 145 H 146 H Potassium Level 5.0 4.9 Chloride Level 113 H 116 H Carbon Dioxide Level 21 21 Anion Gap 11 9 Blood Urea Nitrogen 76 H 80 H Creatinine 1.76 H 1.79 H Est Glomerular Filtrat 43 L 42 L Rate mL/min Glucose Level 121 127 Calcium Level 9.4 9.4 Lab Scanned Report REFERENCE LAB Medications Medication Current Medications IV Flush (NS 3 ml) 3 ml PER PROTOCOL IV ; Start 05/14/18 at 18:30 Lorazepam (Ativan) 0.5 mg Q6H PRN IV .ANXIETY Last administered on 05/20/18 22:26; Admin Dose 0.5 MG; Start 05/14/18 at 18:30 Ondansetron HCl (Zofran Inj) 4 mg Q6H PRN IV NAUSEA/VOMITING; Start 05/14/18 at 18:30 Acetaminophen/ Hydrocodone Bitart ([place] (5/325)) 1 tab Q6H PRN PO .PAIN 4-6 Last administered on 05/31/18 16:03; Admin Dose 1 TAB; Start 05/14/18 at 18:30 Acetaminophen/ Hydrocodone Bitart ([place] (5/325)) 2 tab Q6H PRN PO .PAIN 7-10 Last administered on 05/24/18 08:15; Admin Dose 2 TAB; Start 05/14/18 at 18:30 Hydromorphone HCl (Dilaudid) 0.5 mg Q4H PRN IV .PAIN 7-10 Last administered on 06/01/18 13:13; Admin Dose 0.5 MG; Start 05/14/18 at 18:30 Docusate Sodium (Colace) 100 mg Q12H PRN PO .CONSTIPATION; Start 05/14/18 at 18:30 Magnesium Hydroxide (Milk Of Mag) 30 ml DAILY PRN PO .CONSTIPATION; Start 05/14/18 at 18:30 Famotidine (Pepcid) 20 mg DAILY PO Last administered on 06/01/18 08:59; Admin Dose 20 MG; Start 05/14/18 at 21:00 Enoxaparin Sodium (Lovenox) 30 mg DAILY SC Last administered on 4/26/19at 09:02 ; Admin Dose 30 MG; Start 05/15/18 at 09:00 Miscellaneous Information (Pending Santyl Order For Wound Care) This patient noriega... PRN PRN XX WOUND CARE; Start 05/14/18 at 23:00 Acetaminophen (Tylenol Liquid) 650 mg Q6 PRN PO MILD PAIN(1-3)OR ELEVATED TEMP Last administered on 05/16/18 21:13; Admin Dose 650 MG; Start 05/15/18 at 07:00 Albuterol (Ventolin Hfa) 4 puff Q6H RESP THERAPY INH Last administered on 06/01/18 13:09; Admin Dose 4 PUFF; Start 05/15/18 at 14:00 Ipratropium [place] (Atrovent Hfa) 4 puff Q6H RESP THERAPY INH Last administered on 06/01/18 13:08; Admin Dose 4 PUFF; Start 05/15/18 at 14:00 Collagenase (Santyl) 1 applic DAILY TOP Last administered on 06/01/18 09:00; Admin Dose 1 APPLIC; Start 05/15/18 at 13:00 Multivit/Ca Carb/ B Cmplx/FA/Prenat ([place]) 1 tab DAILY GTB Last administered on 06/01/18 08:59; Admin Dose 1 TAB; Start 05/16/18 at 09:00 Zinc Sulfate (Zinc Sulfate) 220 mg DAILY GTB Last administered on 06/01/18 08:59; Admin Dose 220 MG; Start 05/16/18 at 09:00 Ascorbic Acid (Vitamin C) 250 mg DAILY GTB Last administered on 06/01/18 08:59; Admin Dose 250 MG; Start 05/16/18 at 09:00 Chlorhexidine Gluconate (Peridex) 15 ml Q12 MM Last administered on 06/01/18 08:59; Admin Dose 15 ML; Start 05/15/18 at 16:30 Levetiracetam (Keppra Liquid) 500 mg Q12 GTB Last administered on 06/01/18 08:59; Admin Dose 500 MG; Start 05/15/18 at 16:30 Quetiapine Fumarate (Seroquel) 50 mg BID GTB Last administered on 06/01/18 08:59; Admin Dose 50 MG; Start 05/15/18 at 21:00 IV Flush (NS 10 ml) 10 ml PRN PRN IV IV PROTOCOL; Start 05/15/18 at 18:30 Docusate Sodium (Colace Liquid Cup) 100 mg BID GTB Last administered on 06/01/18at 08:59; Admin Dose 100 MG; Start 05/15/18 at 21:00 Vancomycin HCl (Vanco Iv Per Pharmacy) VANCOMYCIN PER PHARMACY PER PROTOCOL XX ; Start 05/29/18 at 21:00 Vancomycin HCl 250 ml @ 125 mls/hr Q36H IVPB Last administered on 05/31/18at 05:12; Admin Dose 125 MLS/HR; Start 05/31/18 at 06:00 Meropenem/Sodium Chloride 50 ml @ 100 mls/hr Q12 IVPB Last administered on 06/01/18at 09:00; Admin Dose 100 MLS/HR; Start 05/30/18 at 21:00 Atenolol (Tenormin) 12.5 mg BID GTB Last administered on 06/01/18at 09:00; Admin Dose 12.5 MG; Start 05/30/18 at 21:00 Fluconazole (Diflucan) 100 mg DAILY PO Last administered on 06/01/18at 08:59; Admin Dose 100 MG; Start 05/31/18 at 15:30 NAE VELAZCO Jun 01, 2018 13:57
--- NOTE | 2018-06-01 15:22 | CONS ---
Assessment/Plan Assessment/Plan Hospital Course (Demo Recall) Alert, feels good, looks comfortable, afebrile Microbiology: Urine culture on admission grew Proteus mirabilis, sputum culture Providencia, blood culture grew staph sp. 1 out of 2 sets Indwelling: Trach, PEG, PICC line, suprapubic catheter Allergies: Tetracycline Antimicrobials: Vancomycin, meropenem, Diflucan Physical examination: Chronically ill-appearing middle-aged man who is in no distress. Head atraumatic normocephalic neck is supple chest rise symmetrical breath sounds diminished bases. Heart: S1-S2. Abdomen soft bowel sounds present. Extremities wasted without cyanosis Assessment: 1. Sepsis 2. S/p bacteremia, cw contaminant 2. S/p healthcare associated pneumonia 3. S/p Urinary tract infection, poss recurrent 4. Chronic respiratory failure and dysphagia 5. Acute on chronic kidney disease 6. Neurogenic bladder status post suprapubic catheter placement 7. Incomplete quadriplegia 8. History of nephrectomy 9. History of scabies 10. Multiple chronic wounds Plan: Stable, continue on broad-spectrum antibiotics, f/u urine cx Consultation Date/Type/Reason Admit Date/Time May 14, 2018 at 18:34 Initial Consult Date 05/15/18 Type of Consult id Requesting Provider: JOSÉ ANTONIO MIRZA MD Date/Time of Note DATE: 06/01/18 TIME: 15:21 Exam/Review of Systems Exam Vitals Vital Signs Date Temp Pulse Resp B/P (MAP) Pulse Ox O2 O2 Flow FiO2 Time Delivery Rate 06/01/18 86 21 97 30 13:03 06/01/18 Mechanical 12:42 Ventilator 06/01/18 98.2 100/64 11:31 (76) Intake and Output 05/31/18 05/31/18 06/01/18 1414:59 22:59 06:59 IntakeIntake Total 50 ml 1470 ml 840 ml OutputOutput Total 1300 ml 1000 ml BalanceBalance 50 ml 170 ml -160 ml Results Result Diagram: 06/01/18 0553 06/01/18 0553 Results 24hrs Laboratory Tests Test 05/31/18 20:44 06/01/18 05:53 06/01/18 06:03 White Blood Count 4.4 #L 3.4 #L Red Blood Count 2.56 L 2.45 L Hemoglobin 7.5 L 7.1 L Hematocrit 24.9 L 24.2 L Mean Corpuscular Volume 97.3 98.8 Mean Corpuscular Hemoglobin 29.3 29.0 Mean Corpuscular 30.1 L 29.3 L Hemoglobin Concent Red Cell Distribution Width 17.9 H 17.8 H Platelet Count 121 L 113 L Mean Platelet Volume 13.2 H 13.7 H Immature Granulocytes % 0.200 0.300 Neutrophils % 69.7 62.6 Lymphocytes % 9.6 L 8.0 L Monocytes % 8.0 8.6 Eosinophils % 12.3 H 20.2 H Basophils % 0.2 0.3 Nucleated Red Blood Cells % 0.0 0.0 Immature Granulocytes # 0.010 0.010 Neutrophils # 3.1 2.1 Lymphocytes # 0.4 L 0.3 L Monocytes # 0.4 0.3 Eosinophils # 0.5 0.7 H Basophils # 0.0 0.0 Nucleated Red Blood Cells # 0.0 0.0 Sodium Level 145 H 146 H Potassium Level 5.0 4.9 Chloride Level 113 H 116 H Carbon Dioxide Level 21 21 Anion Gap 11 9 Blood Urea Nitrogen 76 H 80 H Creatinine 1.76 H 1.79 H Est Glomerular Filtrat 43 L 42 L Rate mL/min Glucose Level 121 127 Calcium Level 9.4 9.4 Lab Scanned Report REFERENCE LAB Medications Medication Current Medications IV Flush (NS 3 ml) 3 ml PER PROTOCOL IV ; Start 05/14/18 at 18:30 Lorazepam (Ativan) 0.5 mg Q6H PRN IV .ANXIETY Last administered on 05/20/18 22:26; Admin Dose 0.5 MG; Start 05/14/18 at 18:30 Ondansetron HCl (Zofran Inj) 4 mg Q6H PRN IV NAUSEA/VOMITING; Start 05/14/18 at 18:30 Acetaminophen/ Hydrocodone Bitart ([place] (5/325)) 1 tab Q6H PRN PO .PAIN 4-6 Last administered on 05/31/18 16:03; Admin Dose 1 TAB; Start 05/14/18 at 18:30 Acetaminophen/ Hydrocodone Bitart ([place] (5/325)) 2 tab Q6H PRN PO .PAIN 7-10 Last administered on 05/24/18 08:15; Admin Dose 2 TAB; Start 05/14/18 at 18:30 Hydromorphone HCl (Dilaudid) 0.5 mg Q4H PRN IV .PAIN 7-10 Last administered on 06/01/18 13:13; Admin Dose 0.5 MG; Start 05/14/18 at 18:30 Docusate Sodium (Colace) 100 mg Q12H PRN PO .CONSTIPATION; Start 05/14/18 at 18:30 Magnesium Hydroxide (Milk Of Mag) 30 ml DAILY PRN PO .CONSTIPATION; Start 05/14/18 at 18:30 Famotidine (Pepcid) 20 mg DAILY PO Last administered on 06/01/18 08:59; Admin Dose 20 MG; Start 05/14/18 at 21:00 Enoxaparin Sodium (Lovenox) 30 mg DAILY SC Last administered on 06/01/18 09:02; Admin Dose 30 MG; Start 05/15/18 at 09:00 Miscellaneous Information (Pending Santyl Order For Wound Care) This patient noriega... PRN PRN XX WOUND CARE; Start 05/14/18 at 23:00 Acetaminophen (Tylenol Liquid) 650 mg Q6 PRN PO MILD PAIN(1-3)OR ELEVATED TEMP Last administered on 05/16/18 21:13; Admin Dose 650 MG; Start 05/15/18 at 07:00 Albuterol (Ventolin Hfa) 4 puff Q6H RESP THERAPY INH Last administered on 06/01/18 13:09; Admin Dose 4 PUFF; Start 05/15/18 at 14:00 Ipratropium [place] (Atrovent Hfa) 4 puff Q6H RESP THERAPY INH Last administered on 06/01/18 13:08; Admin Dose 4 PUFF; Start 05/15/18 at 14:00 Collagenase (Santyl) 1 applic DAILY TOP Last administered on 06/01/18 09:00; Admin Dose 1 APPLIC; Start 05/15/18 at 13:00 Multivit/Ca Carb/ B Cmplx/FA/Prenat ([place]) 1 tab DAILY GTB Last administered on 06/01/18 08:59; Admin Dose 1 TAB; Start 05/16/18 at 09:00 Zinc Sulfate (Zinc Sulfate) 220 mg DAILY GTB Last administered on 06/01/18 08:59; Admin Dose 220 MG; Start 05/16/18 at 09:00 Ascorbic Acid (Vitamin C) 250 mg DAILY GTB Last administered on 06/01/18 0 8:59; Admin Dose 250 MG; Start 05/16/18 at 09:00 Chlorhexidine Gluconate (Peridex) 15 ml Q12 MM Last administered on 06/01/18 08:59; Admin Dose 15 ML; Start 05/15/18 at 16:30 Levetiracetam (Keppra Liquid) 500 mg Q12 GTB Last administered on 06/01/18 08:59; Admin Dose 500 MG; Start 05/15/18 at 16:30 Quetiapine Fumarate (Seroquel) 50 mg BID GTB Last administered on 06/01/18 08:59; Admin Dose 50 MG; Start 05/15/18 at 21:00 IV Flush (NS 10 ml) 10 ml PRN PRN IV IV PROTOCOL; Start 05/15/18 at 18:30 Docusate Sodium (Colace Liquid Cup) 100 mg BID GTB Last administered on 06/01/18 08:59; Admin Dose 100 MG; Start 05/15/18 at 21:00 Vancomycin HCl (Vanco Iv Per Pharmacy) VANCOMYCIN PER PHARMACY PER PROTOCOL XX ; Start 05/29/18 at 21:00 Vancomycin HCl 250 ml @ 125 mls/hr Q36H IVPB Last administered on 05/31/18 05:12; Admin Dose 125 MLS/HR; Start 05/31/18 at 06:00 Meropenem/Sodium Chloride 50 ml @ 100 mls/hr Q12 IVPB Last administered on 06/01/18 09:00; Admin Dose 100 MLS/HR; Start 05/30/18 at 21:00 Atenolol (Tenormin) 12.5 mg BID GTB Last administered on 06/01/18 09:00; Admin Dose 12.5 MG; Start 05/30/18 at 21:00 Fluconazole (Diflucan) 100 mg DAILY PO Last administered on 06/01/18 08:59; Admin Dose 100 MG; Start 05/31/18 at 15:30 REGINALDO CHERY NP Jun 01, 2018 15:22
[2018-06-01] MEDS: VANCOMYCIN 1 GM 250 ML IVPB SCH (17:35)
== END 2018-06-01 21:45 | DRG 870 ==
LOC: E/R 13:22 → ICU 18:34 → TEL 05-18 21:38 → 6WM 05-23 11:57
PROVIDERS: ADMIT Internal Medicine; ATTEND Internal Medicine
PROC: 5A1955Z Respiratory Ventilation, Greater than 96 Consecutive Hours (ICD-10-PCS; 2018-05-14)
PROC: 02HV33Z Insertion of Infusion Device into Superior Vena Cava, Percutaneous Approach (ICD-10-PCS; principal; 2018-05-15)
DX: A41.9 Sepsis, unspecified organism (principal); L89.313 Pressure ulcer of right buttock, stage 3; L89.323 Pressure ulcer of left buttock, stage 3; R65.21 Severe sepsis with septic shock; L89.154 Pressure ulcer of sacral region, stage 4; L89.223 Pressure ulcer of left hip, stage 3; L89.213 Pressure ulcer of right hip, stage 3; J18.9 Pneumonia, unspecified organism; N39.0 Urinary tract infection, site not specified; G82.20 Paraplegia, unspecified; Z68.1 Body mass index [BMI] 19.9 or less, adult; N17.9 Acute kidney failure, unspecified; J96.10 Chronic respiratory failure, unspecified whether with hypoxia or hypercapnia; E87.0 Hyperosmolality and hypernatremia; Z99.11 Dependence on respirator [ventilator] status; N31.9 Neuromuscular dysfunction of bladder, unspecified; N18.9 Chronic kidney disease, unspecified; F31.9 Bipolar disorder, unspecified; G40.909 Epilepsy, unspecified, not intractable, without status epilepticus; E87.5 Hyperkalemia; E86.0 Dehydration; B96.4 Proteus (mirabilis) (morganii) as the cause of diseases classified elsewhere; Z93.1 Gastrostomy status; Z93.0 Tracheostomy status; Z93.50 Unspecified cystostomy status
CPT/HCPCS: 36415; 36569; 36600; 71045; 76937; 80048; 80053; 81001; 81003; 82565; 82803; 83036; 83605; 83735; 84443; 84484; 84520; 85025; 85610; 85730; 87070; 87081; 87086; 89220; 92610; 93005; 93306; 94002; 94003; 94640; C1769; J1170; J1650; J1956; J2060; J2185; J2370; J2543; J2997; J3370; J3480; J7030; J7040; J7042; J7070

== ENCOUNTER 2018-07-18 12:02 | Inpatient (IN) | payer MEDICARE ==
[2018-07-18] VITALS (21 sets, daily range): BP systolic 78–91; BP diastolic 53–65; PULSE 72–80; RESP 14–22; Ht 165.1 cm; Wt 72.0 kg
[~2018-07-18] VITALS: Ht 165.1 cm; Wt 72.0 kg
[~2018-07-18 12:02] MED LIST changes: +ACET-141 GTB; +ARGI1POW23 GTB; +ASC500 GTB; -ASCO500C7 GTB; -CHLO473M2 MM; +CHLO473M4 MM; -CLON-379 GTB; +CRAN3875 GTB; +CRAN425C6 GTB; -DANT25CA GTB; -FAMO20TA18 GTB; +KEP100S GTB; -LACT1CAP4 GTB; -MERO500P2 IV; -METO25TA4 GTB; -MINE133E23 PR; +MUCO4 NEB; +NA P230E RC; -ONDA4TAB13 GTB; -SENN-120 GTB; -TRA100 GTB; -TYL500 GTB
[2018-07-18] MEDS ORDERED: SODIUM CHLORIDE 0.9% 1L BAG IV* STA (12:17)
[2018-07-18] MEDS ORDERED: CEFEPIME 2GM/50 ML (PMX) 50 ML IVPB STA (12:17)
[2018-07-18] MEDS ORDERED: ACETAMINOPHEN 650MG/20.3ML CUP NGT STA (12:17)
[2018-07-18] MEDS ORDERED: NORepinephrine 8MG/250 ML (PMX 250 ML IV STA (12:17)
[2018-07-18] MEDS ORDERED: VANCOMYCIN 1 GM (PMX) 250 ML IVPB ONE (12:30)
--- NOTE | 2018-07-18 12:38 | ERD ---
ER Documentation Chief Complaint Chief Complaint Elevated BUN/Cr HPI 42-year-old male who has a history of ventilator dependence who presents because of laboratory testing that showed elevated BUN to creatinine. Patient noted to have a fever upon arrival. Patient is minimally verbal. Remainder of HPI is extremely limited. The patient does not arrive with a POLST form. ROS All systems reviewed and are negative except as per history of present illness. Medications Home Meds Reported Medications Zinc Sulfate* (Zinc Sulfate*) 220 Mg Tablet, 220 MG GTB DAILY, TAB 05/14/18 Ascorbic Acid (Vitamin C) 500 Mg Tab, 500 MG GTB DAILY, TAB 05/14/18 Cran/Vitc/Mannose/Inulin/Brom (Uti-Stat Liquid) 3,875 Mg/30 Ml Liquid, 30 ML GTB DAILY 05/14/18 Acetaminophen* (Acetaminophen*) 500 MG Extra Strength Tablet, 1000 MG GTB Q4H PRN for PAIN -07/16, TAB 05/14/18 Acetaminophen* (Tylenol*) 325 Mg Tablet, 650 MG GTB NEEDED PRN for FOR TRACH TUBE TUBE, TAB 05/14/18 Acetaminophen* (Tylenol*) 325 Mg Tablet, 650 MG GTB Q4H PRN for MILD PAIN LEVEL 1-3, TAB FOR TEMP 101F AND ABOVE, END DATE 07/09/18 05/14/18 Tramadol Hcl* (Ultram*) 50 Mg Tablet, 50 MG GTB BID PRN for PAIN, TAB 05/14/18 Quetiapine Fumarate* (Seroquel*) 50 Mg Tablet, 50 MG GTB BID, TAB 05/14/18 Epoetin Prince (Epogen) 10,000 Units/Ml Soln, 5000 UNITS SC Q MON,WED,SAT, VIAL HOLD IF HGB ABOVE 10 AT 1700 05/14/18 Amino Acids/Protein Hydrolys (PRO-STAT LIQUID) 30 Ml Liquid.pkt, 30 ML GTB DAILY SUGAR FREE 05/14/18 Multivitamins* (Theragran*) 1 Tab Tab, 1 TAB GTB DAILY, TAB 05/14/18 Acetylcysteine* (Mucomyst*) 4 Ml Soln, 4 ML NEB Q6H, EA 05/14/18 Magnesium Hydroxide* (Milk Of Magnesia*) 400 Mg/5 Ml Oral.susp, 30 ML GTB NEEDED, ML END DATE 07/09/18 05/14/18 Levetiracetam* (Keppra* (Ped)) 100 Mg/Ml Liq, 5 ML GTB Q12H for 30 Days, BOTTLE 05/14/18 Argin/Glut/Cahmb/Collag/Mv-Min (Nikko Packet) 1 Each Powd.pack, 1 EACH GTB BID 05/14/18 Glycopyrrolate* (Glycopyrrolate*) 1 Mg Tablet, 1 MG GTB TID, TAB 05/14/18 Na Phos,M-B/Na Phos,Di-Ba (Fleet Enema Extra) 230 Ml Enema, 1 APPLIC RC NEEDED, ENEMA END DATE 07/09/18 05/14/18 Bisacodyl* (Bisacodyl*) 10 Mg Supp, [address] NEEDED, SUPP END DATE 07/09/18 05/14/18 Hydromorphone Hcl* (Dilaudid*) 4 Mg Tablet, 4 MG GTB Q4H PRN for PAIN LEVEL 7- 9/10, TAB END DATE 07/09/18 05/14/18 Cranberry Extract (Cranberry) 425 Mg Capsule, 425 MG GTB DAILY, CAP 05/14/18 Docusate Sodium* (Colace*) 100 Mg Capsule, 100 MG GTB QHS, #30 CAP 05/14/18 Chlorhexidine Gluconate (Peridex) 473 Ml Mouthwash, 15 ML MM Q12H, BOTTLE 05/14/18 Baclofen* (Baclofen*) 10 Mg Tablet, 5 MG GTB TID, TAB 05/14/18 Albuterol Sulfate* (Albuterol Sulfate* Neb) 0.083%-3 Ml Neb, 2.5 MG NEB Q6H PRN for WHEEZING AND SOB, #30 VIAL AND Q3H NEEDED 05/14/18 Allergies Allergies: Coded Allergies: Tetracyclines (Verified Allergy, Unknown, 05/14/18) PMhx/Soc History of Surgery: Yes (cervical spine surgery) Anesthesia Reaction: No Hx Neurological Disorder: Yes (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) Hx Respiratory Disorders: Yes (Trach-Vent, PNA) Hx Cardiac Disorders: No Hx Psychiatric Problems: Yes (bipolar with psychosis) Hx Miscellaneous Medical Probl: No Hx Alcohol Use: No Hx Substance Use: No Hx Tobacco Use: No FmHx Family History: No diabetes Physical Exam Vitals Vital Signs Date Temp Pulse Resp B/P (MAP) Pulse Ox O2 O2 Flow FiO2 Time Delivery Rate 07/18/18 81 20 100 60 13:17 07/18/18 101.0 13:14 07/18/18 85 24 83/59 (67) 97 [place] 13:01 l Ventilato r Trach Collar 07/18/18 101.0 85 24 65/46 (52) 100 12:15 07/18/18 82 24 100 100 12:14 Physical Exam General: On the ventilator, clinical signs of dehydration Head: Normocephalic, atraumatic. Eyes: Pupils equally reactive, EOM intact ENT: Very dry mucous membranes Neck: Supple, no lymphadenopathy Respiratory: Upper airway noises, no distress Cardiovascular: RRR, no murmurs, rubs, or gallops Abdominal: Soft, non-tender, non-distended, no peritoneal signs : New Morris catheter appears to be in place MSK: No edema Neurologic: Alert, baseline paralysis Skin: No rash Psych: Normal mood Result Diagram: 07/18/18 1225 07/18/18 1225 Results 24 hrs Laboratory Tests Test 07/18/18 12:24 07/18/18 12:25 07/18/18 13:34 POC Venous Lactate 0.9 mmol/L White Blood Count 9.9 10^3/ul Red Blood Count 2.99 10^6/ul Hemoglobin 8.3 g/dl Hematocrit 28.1 % Mean Corpuscular Volume 94.0 fl Mean Corpuscular Hemoglobin 27.8 pg Mean Corpuscular 29.5 g/dl Hemoglobin Concent Red Cell Distribution Width 18.4 % Platelet Count 111 10^3/UL Mean Platelet Volume 13.8 fl Immature Granulocytes % 0.500 % Neutrophils % 86.3 % Lymphocytes % 6.1 % Monocytes % 7.0 % Eosinophils % 0.0 % Basophils % 0.1 % Nucleated Red Blood Cells % 0.0 /100WBC Immature Granulocytes # 0.050 10^3/ul Neutrophils # 8.5 10^3/ul Lymphocytes # 0.6 10^3/ul Monocytes # 0.7 10^3/ul Eosinophils # 0.0 10^3/ul Basophils # 0.0 10^3/ul Nucleated Red Blood Cells # 0.0 10^3/ul Prothrombin Time 15.4 Sec Prothrombin Time Ratio 1.2 INR International 1.21 Normalized Ratio Activated Partial Thromboplast 37.4 Sec Time Sodium Level 136 mmol/L Potassium Level 4.6 mmol/L Chloride Level 88 mmol/L Carbon Dioxide Level 31 mmol/L Anion Gap 17 Blood Urea Nitrogen 216 mg/dl Creatinine 5.69 mg/dl Est Glomerular Filtrat 11 mL/min Rate mL/min Glucose Level 115 mg/dl Calcium Level 6.9 mg/dl Total Bilirubin 0.2 mg/dl Direct Bilirubin 0.00 mg/dl Indirect Bilirubin 0.2 mg/dl Aspartate Amino 22 IU/L Transf (AST/SGOT) Alanine 19 IU/L Aminotransferase (ALT/SGPT) Alkaline Phosphatase 67 IU/L Troponin I < 0.012 ng/ml Total Protein 6.5 g/dl Albumin 2.9 g/dl Globulin 3.60 g/dl Albumin/Globulin Ratio 0.80 Urine Color WINDY Urine Clarity CLOUDY Urine pH 6.0 Urine Specific [place] 1.018 Urine Ketones NEGATIVE mg/dL Urine Nitrite NEGATIVE mg/dL Urine Bilirubin NEGATIVE mg/dL Urine Urobilinogen NEGATIVE mg/dL Urine Leukocyte Esterase 3+ José/ul Urine Microscopic RBC 0 /HPF Urine Microscopic WBC 0 /HPF Urine Amorphous Crystals MANY /HPF Urine Hemoglobin 1+ mg/dL Urine Glucose NEGATIVE mg/dL Urine Total Protein 2+ mg/dl Current Medications Medications Dose Sig/Dwain Start Time Status Last (Trade) Ordered Route PRN Stop Time Admin Dose Reason Admin Sodium 2,250 ml BOLUS OVER 2 07/18/18 DC 07/18/18 Chloride HOURS STAT 12:17 13:13 (NS) IV* 07/18/18 12:21 650 mg ONCE STAT 07/18/18 DC 07/18/18 Acetaminophen NGT 12:17 13:14 (Tylenol 07/18/18 12:21 Liquid) 250 ml @ ONCE STAT 07/18/18 Norepinephrin 7.5 mls/hr IV 12:17 e 07/19/18 21:36 Cefepime HCl 50 ml @ ONCE STAT 07/18/18 DC 07/18/18 100 mls/hr IVPB 12:17 13:14 07/18/18 12:46 Vancomycin 250 ml @ ONCE ONCE 07/18/18 07/18/18 HCl 125 mls/hr IVPB 12:30 13:59 07/18/18 14:29 Procedures/MDM EKG, MONITORS, & DIAGNOSTIC IMAGING: EKG: I reviewed and interpreted a 12-lead EKG. Rhythm: Normal sinus rhythm ST Changes: No contiguous ST segment elevations T waves: No contiguous T wave inversions Impression: No evidence of acute cardiac ischemia Chest x-ray: I reviewed and interpreted a 1 view of the chest Mediastinum: No enlargement Cardiac silhouette: No cardiomegaly Airspace: Left-sided infiltrate versus effusion Bones: No evidence of fracture CT a/p: pending and to be followed by admitting team LAB INTERPRETATION: I reviewed the laboratory testing and it shows elevated BUN and creatinine lev els with no hyperkalemia Reassuring lactic acid MEDICAL DECISION MAKING: Patient presents with fever, low blood pressure. The patient has risk factors for sepsis and likely bacteremia. He is a new Morris catheter placed. The patient's clinical evidence of severe dehydration. Patient has an elevated BUN and creatinine ratio. I am concerned that the patient is not being hydrated at his facility. incident manager and social worker delinquency prevention should be involved in this case. They have been notified. Patient has multiple sources of possible infection including pneumonia, urinary tract infection, PICC line infection, decubitus ulcer infection among others. Code sepsis was initiated. Patient is hydration and appears to be significantly dehydrated. Lactic acid reassuring. ER COURSE: * Patient is treated with appropriate 30 cc/kg bolus of saline, broad-spectrum antibiotics after blood cultures * He has a new Morris catheter as of today, this does not be need to be changed * Levo ordered to the bedside but he will likely improve with fluid resuscitation. Titration of pressors to keep mean arterial pressure greater than 65 * Admitting physician noted that the patient does have a history of prior neph rectomy, the patient had a an obstructing stone in his only kidney. CT imaging ordered and to be followed by the admitting team. Dr. Marquez will be notified by admitting team. CONSULTATION: None DISPOSITION PLAN: Intensive care unit Accepting care team and consultations: I discussed the current laboratory data, diagnostic imaging and emergency care provided. Admitting team: Dr. Barreto Admitting team indication: Insurance directed Sepsis Documentation: Patient's infectious symptoms have not stabilized and the patient is at risk of rapid decompensation. The patient will be admitted for careful hydration, antibiotic therapy, and infectious source control. SEVERE SEPSIS CRITERIA: Infectious source: Possible urinary tract infection versus healthcare associated pneumonia, unclear at this time End organ damage indicated by: * Hypotension (SBP < 90 or >40 mmHG drop or MAP < 65) * Autom[employer] Service Management Teacher > 2.0 SEPSIS MANAGEMENT Time of recognition of sepsis: Upon MD assessment. Time of recognition of severe sepsis: Upon MD assessment. Time of recognition of septic shock: Upon MD assessment. 3 HOUR BUNDLE Blood cultures x 2 before broad-spectrum antibiotics: Yes 30 ml/kg NS bolus completed Initial lactate less than 2 Repeat lactate pending repeat SEPTIC SHOCK ASSESSMENT: No lactic acid > 4.0 * Persistent hypotension (SBP < 90 or 40 mmHg drop, MAP < 65) despite 30 mL/kg IV fluid bolus VOLUME REASSESSMENT FOR SEPTIC SHOCK: Reevaluation Time: 2:04 PM Heart rate 82 respiratory rate 16 pulse ox 99 on ventilator, blood pressure 89/62 temperature 101 Heart regular rate & rhythm Lungs no crackles Skin warm & dry Cap Refill less than 2 seconds Peripheral pulses radially present PERSISTENT HYPOTENSION TREATMENT: Comfort care no Central line patient has a left upper extremity PICC line Vasopressor started Levo to bedside, titration PRN MAP > 65 I considered further perfusion assessment with CVP measurement, SCVO2, bedside ultrasound volume assessment, passive leg raise, trial of further fluid bolus. And proceeded with 30 ml/kg fluid bolus of NSS, broad spectrum antibiotics, and admission. CRITICAL CARE Critical care time 50 minutes Emergent fluid management while maintaining close respiratory support. Provision of immediate and broad-spectrum antibiotic therapy. Simultaneous assessment for possible sources in order to direct targeted therapy. Consideration for invasive and chemical support to prevent cardiopulmonary collapse. Critical care time is independent of procedures performed. Departure Diagnosis: Primary Impression: Septic shock Additional Impressions: Severe dehydration Chronic respiratory failure Respiratory failure complication: unspecified whether with hypoxia or hypercapnia Qualified Codes: J96.10 - Chronic respiratory failure, unspecified whether with hypoxia or hypercapnia Acute renal failure Acute renal failure type: unspecified Qualified Codes: N17.9 - Acute kidney failure, unspecified Healthcare-associated pneumonia Condition: Serious KIRSTEN HILL MD Jul 18, 2018 12:38
[2018-07-18] MEDS ORDERED: ATEN-51 GTB (14:22)
[2018-07-18] MEDS ORDERED: CITR473S GTB (14:23)
[2018-07-18] MEDS ORDERED: HYDR2TAB36 PO (14:24)
[2018-07-18] MEDS ORDERED: ENOX30DI10 SQ (14:26)
[2018-07-18] MEDS ORDERED: MULTI GTB (14:28)
[2018-07-18] MEDS ORDERED: MIDO5TAB GTB (14:28)
[2018-07-18] MEDS ORDERED: FAMO-96 GTB (14:29)
[2018-07-18] MEDS ORDERED: EPOE40009 IJ (14:30)
[2018-07-18] MEDS ORDERED: GLYC1TAB GTB (14:31)
[2018-07-18] MEDS ORDERED: ACET-2047 GTB (14:32)
[2018-07-18] MEDS ORDERED: ACET-141 GTB (14:35)
[2018-07-18] MEDS ORDERED: TRAM50TA GTB (14:37)
[2018-07-18] MEDS: NORepinephrine 8MG/250 ML (PMX 250 ML IV SCH (17:30)
--- NOTE | 2018-07-18 18:18 | HP ---
Date/Time of Note Date/Time of Note DATE: 07/18/18 TIME: 18:03 Assessment/Plan VTE Prophylaxis SCD applied (from Nsg): Yes Pharmacological prophylaxis: heparin Lines/Catheters IV Catheter Type (from Nrsg): PICC Line Central line still needed: Yes Urinary Cath still in place: Yes Reason Cath still needed: urinary retention Assessment/Plan Assessment/Plan - Sepsis with shock injury to possible healthcare acquired pneumonia and UTI, continue IV fluids and broad-spectrum antibiotics monitor lactic acid, will f/up on cultures. Dr. Maciel is asked to see patient in infection disease consultation. - Dehydration, continue IV fluids. - Acute on chronic renal failure, continue IV fluids. Continue to monitor BUN and creatinine. Dr. Barker is asked to see patient in nephrology consultation. - Ventilator dependent respiratory failure, continue pulmonary toilet and bronchodilators. Dr Ames is following in pulmonology consultation. - Neurogenic bladder with suprapubic catheter. - Dysphagia with gastrostomy tube. - Multiple decubitus ulcers present on admission. Will obtain wound care consult. - Cervical spine injury with paraplegia. - Bipolar disorder with psychosis. - Hx of right nephrectomy - Hx of left renal nephrolithiasis, hx of lithotripsy with insertion and subsequent removal of ureteral JJ stent. Further recommendations based on clinical course. Plan of care discussed with Dr. Barreto. Result Diagram: 07/18/18 1225 07/18/18 1225 Results 24hrs Laboratory Tests Test 07/18/18 12:24 07/18/18 12:25 07/18/18 13:34 07/18/18 14:05 POC Venous Lactate 0.9 White Blood Count 9.9 # Red Blood Count 2.99 L Hemoglobin 8.3 L Hematocrit 28.1 L Mean Corpuscular 94.0 Volume Mean Corpuscular 27.8 L Hemoglobin Mean Corpuscular 29.5 L Hemoglobin Concent Red Cell 18.4 H Distribution Width Platelet Count 111 #L Mean Platelet Volume 13.8 H Immature 0.500 H Granulocytes % Neutrophils % 86.3 H Lymphocytes % 6.1 L Monocytes % 7.0 Eosinophils % 0.0 Basophils % 0.1 Nucleated Red Blood 0.0 Cells % Immature 0.050 H Granulocytes # Neutrophils # 8.5 H Lymphocytes # 0.6 L Monocytes # 0.7 Eosinophils # 0.0 Basophils # 0.0 Nucleated Red Blood 0.0 Cells # Prothrombin Time 15.4 H Prothrombin Time 1.2 Ratio INR International 1.21 Normalized Ratio Activated 37.4 H Partial Thromboplast Time Sodium Level 136 Potassium Level 4.6 Chloride Level 88 L Carbon Dioxide Level 31 Anion Gap 17 H Blood Urea Nitrogen 216 H Creatinine 5.69 H Est Glomerular 11 L Filtrat Rate mL/min Glucose Level 115 Calcium Level 6.9 L Total Bilirubin 0.2 Direct Bilirubin 0.00 Indirect Bilirubin 0.2 Aspartate Amino 22 Transf (AST/SGOT) Alanine 19 Aminotransferase (AL T/SGPT) Alkaline Phosphatase 67 Troponin I < 0.012 Total Protein 6.5 Albumin 2.9 L Globulin 3.60 H Albumin/Globulin 0.80 Ratio Urine Color WINDY Urine Clarity CLOUDY A Urine pH 6.0 Urine Specific 1.018 [place] Urine Ketones NEGATIVE Urine Nitrite NEGATIVE Urine Bilirubin NEGATIVE Urine Urobilinogen NEGATIVE Urine Leukocyte 3+ H Esterase Urine Microscopic 0 RBC Urine Microscopic 0 WBC Urine Amorphous MANY A Crystals Urine Hemoglobin 1+ H Urine Glucose NEGATIVE Urine Total Protein 2+ H Lactic Acid Level 0.8 Test 07/18/18 16:34 Lactic Acid Level 0.6 HPI/ROS Admit Date/Time Admit Date/Time Jul 18, 2018 at 13:59 Hx of Present Illness Patient is a 42-year-old male with history of paraplegia secondary to cervical spine injury, ventilator dependent respiratory failure with tracheostomy, dysphagia with G-tube, chronic kidney disease and history of right nephrectomy and left renal nephrolithiasis, bipolar disorder was sent from senior care facility for elevated above baseline BUN and creatinine. Patient has fever and hypotension which is does not improved with IV fluid boluses. Patient was diagnosed with sepsis and started on broad-spectrum antibiotics. Patient was started on Levophed drip for blood pressure control and admitted for further evaluation and management to intensive care unit. ROS Unable to obtain due to patient's condition PMH/Family/Social Past Medical History Per HPI Medications Current Medications Norepinephrine 250 ml @ 7.5 mls/hr ONCE STAT IV ; Start 07/18/18 at 12:17; Stop 07/19/18 at 21:36 Coded Allergies: Tetracyclines (Verified Allergy, Unknown, 07/18/18) Past Surgical History Past Surgical Hx: other (Is post right nephrectomy, status post tracheostomy, status post G-tube placement, status post left lithotripsy) Family History Significant Family History: no pertinent family hx Social History Smoking Status: Never smoker Exam/Review of Systems Vital Signs Vitals Vital Signs Date Temp Pulse Resp B/P (MAP) Pulse Ox O2 O2 Flow FiO2 Time Delivery Rate 07/18/18 78 17:21 07/18/18 21 96 40 17:20 07/18/18 98.3 91/60 (70) Mechanical 16:29 Ventilator Trach Collar Exam Exam Constitutional: alert, awake Neck: supple, other (Tracheostomy) Respiratory: diminished breath sounds, other (Scattered Rhonchi) Cardiovascular: regular rate and rhythm Gastrointestinal: soft, non-tender, other (G-tube) Genitourinary - Male: other (Suprapubic catheter) Extremities: normal pulses, other (Contracted) Neurological: other (Paraplegia) Skin: other (Multiple wounds) AISSATOU DUNCAN Jul 18, 2018 18:14
--- NOTE | 2018-07-18 18:23 | CONS ---
Assessment/Plan Assessment/Plan Assessment/Plan (Daily) 1. Acute Renal failure with severe Uremia, BUN 216 2. Septic shock on levophed due to PNA and UTI 3. PNA concerned about HCAP 4. UTI 5. 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 ventilator dependent respiratory failure with tracheostomy, dysphagia with G-tube, chronic kidney disease III and history of right nephrectomy and left renal nephrolithiasis, bipolar disorder Plan: seen in Levophed, BP still labile on levophed, IV abx for Septic shock, Renally dose all abx and monitor electrolytes s/p 2.5 L IVF in ED, will continue IVF NS at 100 cc/hr IV albumin 25% 100ml Q 8 hr x 3 doses pt is currently severely dry, will continue IVF NS at 100 cc/ hr Thanks for consultation I will continue to follow up Consultation Date/Type/Reason Admit Date/Time Jul 18, 2018 at 13:59 Date of Consultation: Jul 18, 2018 Type of Consult NEPHROLOGY Reason for Consultation acute on chronic renal failure, severe uremia Requesting Provider: JOSÉ ANTONIO MIRZA MD Date/Time of Note DATE: 07/18/18 TIME: 18:23 Hx of Present Illness 42-year-old male with history of paraplegia secondary to cervical spine injury, ventilator dependent respiratory failure with tracheostomy, dysphagia with G- tube, chronic kidney disease and history of right nephrectomy and left renal nephrolithiasis, bipolar disorder [facility] for elevated above baseline BUN and creatinine. Patient has fever and hypotension which is does not improved with IV fluid boluses. Patient was diagnosed with sepsis and started on broad-spectrum antibiotics. Patient was started on Levophed drip for blood pressure control and admitted for further evaluation and management to intensive care unit. On admission BUN/Cr 216/5.67, K normal, HCO3 33- Renal has been consulted for acute renal failure. Subjective hx not possible: pt non-verbal, pt critical status, other (due to VDRF, pt is awake alert in distress ) Past Medical History Medical History: other (paraplegia secondary to cervical spine injury, ventilator dependent respiratory failure with tracheostomy, dysphagia with G- tube, chronic kidney disease and history of right nephrectomy and left renal nephrolithiasis, bipolar disorder) Home Meds Reported Medications Tramadol Hcl* (Ultram*) 50 Mg Tablet, 50 MG GTB BID PRN for BREAKTHROUGH PAIN, TAB 07/18/18 Acetaminophen* (Acetaminophen*) 500 MG Extra Strength Tablet, 1000 MG GTB Q4 PRN for PAIN LEVEL 4-6, TAB 07/18/18 Acetaminophen* (Acetaminophen*) 650 Mg Tablet, 650 MG GTB Q4 PRN for PAIN LEVEL 1-3, #30 TAB AND FEVER 07/18/18 Glycopyrrolate* (Glycopyrrolate*) 1 Mg Tablet, 1 MG GTB TID, TAB 07/18/18 Epoetin Prince (Procrit) 4,000 Unit/1 Ml Vial, 4000 UNIT IJ MON, WED,SAT,, VIAL HOLD IF HGB ABOVE 10 07/18/18 Famotidine* (Pepcid*) 20 Mg Tablet, 20 MG GTB DAILY, #30 TAB 07/18/18 Multivitamins* (Theragran*) 1 Tab Tab, 1 TAB GTB DAILY, TAB 07/18/18 Midodrine* (Midodrine*) 5 Mg Tablet, 5 MG GTB BID, TAB FOR SBP BELOW 90 07/18/18 Enoxaparin Sodium* (Lovenox*) 30 Mg/0.3 Ml Disp.syrin, 30 MG SQ DAILY, SYR 07/18/18 Hydromorphone Hcl* (Dilaudid*) 2 Mg Tablet, 2 MG PO Q4H PRN for PAIN 7-9, TAB 07/18/18 Citric Acid/Sodium Citrate (Sod Citrate-Citric Acid Soln) 473 Ml Solution, 30 ML GTB TID 07/18/18 Atenolol* (Atenolol*) 25 Mg Tablet, 12.5 MG GTB BID, #60 TAB 07/18/18 Zinc Sulfate* (Zinc Sulfate*) 220 Mg Tablet, 220 MG GTB DAILY, TAB 05/14/18 Cran/Vitc/Mannose/Inulin/Brom (Uti-Stat Liquid) 3,875 Mg/30 Ml Liquid, 30 ML GTB DAILY 05/14/18 Quetiapine Fumarate* (Seroquel*) 50 Mg Tablet, 50 MG GTB BID, TAB 05/14/18 Magnesium Hydroxide* (Milk Of Magnesia*) 400 Mg/5 Ml Oral.susp, 30 ML GTB NEEDED, ML END DATE 07/09/18 05/14/18 Levetiracetam* (Keppra* (Ped)) 100 Mg/Ml Liq, 5 ML GTB Q12H for 30 Days, BOTTLE 05/14/18 Na Phos,M-B/Na Phos,Di-Ba (Fleet Enema Extra) 230 Ml Enema, 1 APPLIC RC NEEDED, ENEMA END DATE 07/09/18 05/14/18 Bisacodyl* (Bisacodyl*) 10 Mg Supp, 10 MG AZ NEEDED, SUPP END DATE 07/09/18 05/14/18 Cranberry Extract (Cranberry) 425 Mg Capsule, 425 MG GTB DAILY, CAP 05/14/18 Docusate Sodium* (Colace*) 100 Mg Capsule, 100 MG GTB QHS, #30 CAP 05/14/18 Chlorhexidine Gluconate (Peridex) 473 Ml Mouthwash, 15 ML MM Q12H, BOTTLE 05/14/18 Albuterol Sulfate* (Albuterol Sulfate* Neb) 0.083%-3 Ml Neb, 2.5 MG NEB Q6H PRN for WHEEZING AND SOB, #30 VIAL AND Q3H NEEDED 05/14/18 Discontinued Reported Medications Ascorbic Acid (Vitamin C) 500 Mg Tab, 500 MG GTB DAILY, TAB 05/14/18 Acetaminophen* (Acetaminophen*) 500 MG Extra Strength Tablet, 1000 MG GTB Q4H PRN for PAIN -07/16, TAB 05/14/18 Acetaminophen* (Tylenol*) 325 Mg Tablet, 650 MG GTB NEEDED PRN for FOR TRACH TUBE TUBE, TAB 05/14/18 Acetaminophen* (Tylenol*) 325 Mg Tablet, 650 MG GTB Q4H PRN for MILD PAIN LEVEL 1-3, TAB FOR TEMP 101F AND ABOVE, END DATE 07/09/18 05/14/18 Tramadol Hcl* (Ultram*) 50 Mg Tablet, 50 MG GTB BID PRN for PAIN, TAB 05/14/18 Epoetin Prince (Epogen) 10,000 Units/Ml Soln, 5000 UNITS SC Q MON,WED,SAT, VIAL HOLD IF HGB ABOVE 10 AT 1700 05/14/18 Amino Acids/Protein Hydrolys (PRO-STAT LIQUID) 30 Ml Liquid.pkt, 30 ML GTB DAILY SUGAR FREE 05/14/18 Multivitamins* (Theragran*) 1 Tab Tab, 1 TAB GTB DAILY, TAB 05/14/18 Acetylcysteine* (Mucomyst*) 4 Ml Soln, 4 ML NEB Q6H, EA 05/14/18 Argin/Glut/Cahmb/Collag/Mv-Min (Nikko Packet) 1 Each Powd.pack, 1 EACH GTB BID 05/14/18 Glycopyrrolate* (Glycopyrrolate*) 1 Mg Tablet, 1 MG GTB TID, TAB 05/14/18 Hydromorphone Hcl* (Dilaudid*) 4 Mg Tablet, 4 MG GTB Q4H PRN for PAIN LEVEL 7- 9/10, TAB END DATE 07/09/18 05/14/18 Baclofen* (Baclofen*) 10 Mg Tablet, 5 MG GTB TID, TAB 05/14/18 Medications Current Medications Hydromorphone HCl (Dilaudid) 0.5 mg Q4H PRN IV SEVERE PAIN LEVEL 7-10; Start 07/18/18 at 18:30 Norepinephrine 250 ml @ 1.875 mls/ hr TITRATE IV ; Start 07/18/18 at 18:30; Status UNV Bisacodyl (Dulcolax Supp) 10 mg DAILY [place] ; Start 07/19/18 at 09:00; Status UNV Docusate Sodium (Colace) 100 mg QHS PO ; Start 07/18/18 at 21:00; Status UNV Levetiracetam (Keppra Liq (Ped)) 500 mg Q12H GTB ; Start 07/18/18 at 18:30; Status UNV Multivitamins Therapeutic (Theragran) 1 tab DAILY GTB ; Start 07/19/18 at 09:00; Status UNV Quetiapine Fumarate (Seroquel) 50 mg BID GTB ; Start 07/18/18 at 21:00; Status UNV Zinc Sulfate (Zinc Sulfate) 220 mg DAILY GTB ; Start 07/19/18 at 09:00; Status UNV Allergies: Coded Allergies: Tetracyclines (Verified Allergy, Unknown, 07/18/18) Past Surgical History Past Surgical Hx: other (Is post right nephrectomy, status post tracheostomy, status post G-tube placement, status post left lithotripsy) Family History Significant Family History: no pertinent family hx Social History Alcohol Use: none Smoking Status: Never smoker Drug Use: none Exam/Review of Systems Exam Vitals Vital Signs Date Temp Pulse Resp B/P (MAP) Pulse Ox O2 O2 Flow FiO2 Time Delivery Rate 07/18/18 74 20 81/53 (62) 96 18:15 07/18/18 99.2 Mechanical 18:00 Ventilator 07/18/18 40 18:00 Constitutional: non-verbal, distress (moderate distress ) Head: normocephalic ENMT: other (+ tracheostomy ) Neck: supple Respiratory: diminished breath sounds, other (Bilateral coarse BS +) Gastrointestinal: soft, non-tender Musculoskeletal: other (Paraplegia ) Neurological: confused, other (Uncooperative for exam ) Results Result Diagram: 07/18/18 1225 07/18/18 1225 Results 24hrs Laboratory Tests Test 07/18/18 12:24 07/18/18 12:25 07/18/18 13:34 07/18/18 14:05 POC Venous Lactate 0.9 White Blood Count 9.9 # Red Blood Count 2.99 L Hemoglobin 8.3 L Hematocrit 28.1 L Mean Corpuscular 94.0 Volume Mean Corpuscular 27.8 L Hemoglobin Mean Corpuscular 29.5 L Hemoglobin Concent Red Cell 18.4 H Distribution Width Platelet Count 111 #L Mean Platelet Volume 13.8 H Immature 0.500 H Granulocytes % Neutrophils % 86.3 H Lymphocytes % 6.1 L Monocytes % 7.0 Eosinophils % 0.0 Basophils % 0.1 Nucleated Red Blood 0.0 Cells % Immature 0.050 H Granulocytes # Neutrophils # 8.5 H Lymphocytes # 0.6 L Monocytes # 0.7 Eosinophils # 0.0 Basophils # 0.0 Nucleated Red Blood 0.0 Cells # Prothrombin Time 15.4 H Prothrombin Time 1.2 Ratio INR International 1.21 Normalized Ratio Activated 37.4 H Partial Thromboplast Time Sodium Level 136 Potassium Level 4.6 Chloride Level 88 L Carbon Dioxide Level 31 Anion Gap 17 H Blood Urea Nitrogen 216 H Creatinine 5.69 H Est Glomerular 11 L Filtrat Rate mL/min Glucose Level 115 Calcium Level 6.9 L Total Bilirubin 0.2 Direct Bilirubin 0.00 Indirect Bilirubin 0.2 Aspartate Amino 22 Transf (AST/SGOT) Alanine 19 Aminotransferase (AL T/SGPT) Alkaline Phosphatase 67 Troponin I < 0.012 Total Protein 6.5 Albumin 2.9 L Globulin 3.60 H Albumin/Globulin 0.80 Ratio Urine Color WINDY Urine Clarity CLOUDY A Urine pH 6.0 Urine Specific 1.018 [place] Urine Ketones NEGATIVE Urine Nitrite NEGATIVE Urine Bilirubin NEGATIVE Urine Urobilinogen NEGATIVE Urine Leukocyte 3+ H Esterase Urine Microscopic 0 RBC Urine Microscopic 0 WBC Urine Amorphous MANY A Crystals Urine Hemoglobin 1+ H Urine Glucose NEGATIVE Urine Total Protein 2+ H Lactic Acid Level 0.8 Test 07/18/18 16:34 Lactic Acid Level 0.6 Medications Medication Current Medications Hydromorphone HCl (Dilaudid) 0.5 mg Q4H PRN IV SEVERE PAIN LEVEL 7-10; Start 07/18/18 at 18:30 Norepinephrine 250 ml @ 1.875 mls/ hr TITRATE IV ; Start 07/18/18 at 18:30; Status UNV Bisacodyl (Dulcolax Supp) 10 mg DAILY [place] ; Start 07/19/18 at 09:00; Status UNV Docusate Sodium (Colace) 100 mg QHS PO ; Start 07/18/18 at 21:00; Status UNV Levetiracetam (Keppra Liq (Ped)) 500 mg Q12H GTB ; Start 07/18/18 at 18:30; Status UNV Multivitamins Therapeutic (Theragran) 1 tab DAILY GTB ; Start 07/19/18 at 09:00; Status UNV Quetiapine Fumarate (Seroquel) 50 mg BID GTB ; Start 07/18/18 at 21:00; Status UNV Zinc Sulfate (Zinc Sulfate) 220 mg DAILY GTB ; Start 07/19/18 at 09:00; Status UNV TIARA CISNEROS MD Jul 18, 2018 18:23
[2018-07-18] MEDS ORDERED: ACETAMINOPHEN 650MG/20.3ML CUP PO PRN (18:30)
[2018-07-18] MEDS ORDERED: HYDROmorphONE 0.5 MG/0.5 ML SYG IV PRN (18:30)
[2018-07-18] MEDS ORDERED: SOD CHLORIDE 0.9% 1,000 ML IV SCH (18:30)
[2018-07-18] MEDS ORDERED: NACL 0.9% 3 ML SYG IV SCH (18:30)
[2018-07-18] MEDS ORDERED: DOCUSATE SODIUM 100 MG CAP PO PRN (18:30)
[2018-07-18] MEDS ORDERED: VANCOMYCIN IV PER PHARMACY XX SCH (18:30)
[2018-07-18] MEDS ORDERED: HYDROCODONE/APAP (5/325) TAB PO PRN (18:30)
[2018-07-18] MEDS: ALBUMIN HUMAN 25% 100 ML IV SCH (18:47)
[2018-07-18] MEDS: SOD CHLORIDE 0.9% 1,000 ML IV SCH (18:50)
[2018-07-18] MEDS ORDERED: FAMOTIDINE 20 MG TAB PO SCH ×2 (19:00→21:00)
[2018-07-18] MEDS ORDERED: LIDOCAINE 1% (MPF) 5 ML VIAL SC ONE (20:00)
[2018-07-18] MEDS ORDERED: DOCUSATE SODIUM 100 MG CAP PO SCH (21:00)
[2018-07-18] MEDS: LEVETIRACETAM (100 MG/ML PO SYG) GTB SCH (21:29)
[2018-07-18] MEDS: QUETIAPINE 25 MG TAB GTB SCH (21:30)
[2018-07-18] MEDS: HEPARIN 5,000 UNIT/1 ML VIAL SC SCH (21:32)
--- NOTE | 2018-07-18 21:33 | CONS ---
DATE OF ADMISSION: 07/18/2018 DATE OF CONSULTATION: 07/18/2018 TYPE OF CONSULTATION: Infectious disease. REASON FOR CONSULTATION: Antibiotic management. HISTORY OF PRESENT ILLNESS: Henry Haddad is a 42-year-old male with history of ventilator depende nt respiratory failure, who comes in with an elevated BUN and creatinine. The patient also had fever on arrival, minimally verbal. His past problems include: 1. 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 He is trached vent, has a history of pneumonia, a lso is bipolar with psychosis. PAST MEDICAL HISTORY: As outlined. FAMILY HISTORY: Noncontributory. SOCIAL HISTORY: Does not smoke, drink or abuse drugs. ALLERGIES: TETRACYCLINE. MEDICATIONS: Per chart. REVIEW OF SYSTEMS: As per HPI. PHYSICAL EXAMINATION: GENERAL: The patient shows signs of dehydration. VITAL SIGNS: His blood pressure was down to 65/46. Temperature 101. SKIN: Without generalized rash. HEENT: Within normal limits. NECK: Supple. LYMPH NODES: None palpable. CHEST: Decreased breath sounds at the bases. HEART: Without murmur or gallop. ABDOMEN: Soft, nontender, without organosplenomegaly or masses. EXTREMITIES: Without cyanosis, clubbing, or edema. He has a new Morris catheter in place. RECTAL AND GENITAL: Deferred. NEUROLOGIC: Quadriplegia. ANCILLARY LABORATORY DATA: White count 9.9, H and H 8.3 and 28.1, platelet count 111,000. BUN and c reatinine is 216/5.69, glucose of 115 with 86% neutrophils. Urinalysis was 3+ leukocytosis, but no w dalia cells per high-power field. He was placed on vancomycin, cefepime and norepinephrine to maintai n his blood pressure. The chest x-ray showed no cardiomegaly. He has a left-sided infiltrate versus effusion. BUN and creatinine was 216/5.69 as previously noted. IMPRESSION AND PLAN: The patient most likely has sepsis. He has multiple sources of possible infect ion. He has pneumonia. I doubt urinary tract infection. He have a PICC line infection, decubitus u lcers, among others, he appeared to be dehydrated. The patient has a history of prior nephrectomy. He had an obstructing stone in his kidney. Doctor Alma will be notified by the admitting team. Dayna fuentes has probable healthcare-associated pneumonia. I will dictate my findings to Dr. Mirza. Dictated By: ANTONELLA STEWART MD, JD/QUE Conf#: [id number] DID#: [id number] CC: JOSÉ ANTONIO MIRZA MD;*EndCC*
[2018-07-19] VITALS (101 sets, daily range): BP systolic 67–109; BP diastolic 38–71; PULSE 71–85; RESP 9–23
[2018-07-19] MEDS: SOD CHLORIDE 0.9% 1,000 ML IV SCH ×3 (01:37→17:15)
[2018-07-19] MEDS: ALBUMIN HUMAN 25% 100 ML IV SCH ×3 (01:37→18:37)
[2018-07-19] MEDS: NORepinephrine 8MG/250 ML (PMX 250 ML IV SCH ×2 (04:42→19:36)
[2018-07-19] MEDS: LEVETIRACETAM (100 MG/ML PO SYG) GTB SCH ×2 (05:55→18:37)
[2018-07-19] MEDS: HYDROmorphONE 0.5 MG/0.5 ML SYG IV PRN ×4 (08:41→22:42)
--- NOTE | 2018-07-19 08:42 | CONS ---
DATE OF ADMISSION: 07/18/2018 DATE OF CONSULTATION: 07/19/2018 TYPE OF CONSULTATION: Pulmonary. Requested by Dr. Barreto. Thank you, Dr. Barreto, for referring this patient in pulmonary consultation. HISTORY OF PRESENT ILLNESS: As you know, this is a 42-year-old male patient who is a long-term resid ent of a shelter, was transferred to the hospital Emergency Room yesterday after his lab tests s howed moderate deviated BUN and creatinine. He was also had any fever at the time of arrival in the Emergency Room, the patient had a fever of 101. His blood pressure was 83/59, heart rate is 81. He was saturating 100%. The initial impression was sepsis with dehydration and acute renal failure. Cu ltures have been taken. Infectious disease consultation has been done. Antibiotic therapy has been initiated with cefepime and vancomycin. The patient is admitted to the intensive care unit. He is o n long-term ventilator support as he is known to be ventilator dependent, following his respiratory f ailure for the past few years. Multiple weaning attempts have been unsuccessful. He has stayed black ral times in [facility], but will need to go back on the ventilator within a few days after his readmission to be a shelter. The patient has history of paraplegia secondary to spinal cord injury which he sustained during his h igh school years. He has had multiple episodes of sepsis with pneumonia, a urinary tract infection. He also has decubiti. In addition, the patient has a history of chronic kidney disease and he also suffers from chronic anemia. He has had a nephrectomy on one side before. He has staghorn calculus, has had lithotripsy and has had ureteral stent placed in the past. He has a tracheostomy for airway access and a gastrostomy for tube feeding. He also suffers from bipolar disorder. MEDICATIONS: Here include the following antibiotics with: 1. Cefepime. 2. Vancomycin 3. Dulcolax. 4. Multivitamin supplement. 5. Zinc sulfate. 6. Colace. 7. Seroquel. 8. Low dose heparin for DVT prophylaxis. 9. Pepcid. 10. Hydromorphone as needed for pain. 11. Levophed drip for maintaining his blood pressure. 12. Keppra for seizures. 13. Zofran as needed for vomiting. 14. Albuterol and Atrovent inhalations. 15. Tylenol for pain and fever. REVIEW OF SYSTEMS: As mentioned earlier. PERSONAL HABITS: He is a nonsmoker. No history of drug abuse. No history of alcohol abuse. He is a long-term resident in a shelter for the past several years. PHYSICAL EXAMINATION: GENERAL: Shows young male patient who is in ICU on ventilator support through tracheostomy. VITAL SIGNS: This morning shows blood pressure 93/61, pulse rate 77, respirations 20, pulse oximetry 98% saturation. Earlier he had a slight temperature 99.2. HEENT: Head looks normal. No scleral icterus is seen. 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 Oral mucosa appears dry. NECK: No cervical lymphadenopathy felt, tracheostomy tube is in place, connected to the ventilator. Secretions are minimal. No gross bleeding seen. HEART: Regular sinus rhythm. CHEST: Breath sounds are heard diminished in the lower lung tierney with a few intermittent rales or rhonchi. No respiratory distress. He has apparent bleeding is synchronized with the ventilator. ABDOMEN: Soft, no distention seen, no localized tenderness. Bowel sounds are heard, though somewhat diminished. EXTREMITIES: Show no edema. No spontaneous movements are seen due to his paraplegia. He has develo ped spasticity in all the extremities, more pronounced in the lower extremities. NEUROLOGIC: The patient is awake but his cooperation is suboptimal. He is able to follow commands w hen spoken to, though reluctantly. IMAGING: The chest x-ray taken in the Emergency Room is reported to show poor respiratory effort ,de scribed atelectatic changes in the lung bases, greater on the left. Slight haziness in the left cost ophrenic angle area, which could be secondary to pleural effusion or may not be present. No pneumoth orax is seen, the CT scan of the abdomen is reported to show bibasilar atelectasis with small effusio ns, small ascites, solitary left kidney with numerous stones and dilated calluses, left hydroureter s een. Cholelithiasis, sacral decubiti. LABORATORY DATA: Show leukocytosis with a history of 13,100, hemoglobin 9.3, hematocrit 31.4, platel ets decreased at 124,000. Compared to yesterday, WBC count has increased from 9900. The chemistry panel shows sodium 136, potassium 4.4, bicarbonate of 25, BUN 212, creatinine 5.1, magnesium 4.4, alb umin 2.9. Compared to yesterday BUN and creatinine are almost the same though showing very minimal i mprovement. Cultures are taken of blood; culture results are awaited. ASSESSMENT: 1. Sepsis. 2. Chronic ventilator dependent respiratory failure. 3. Chronic kidney disease with acute kidney injury. 4. Chronic anemia. 5. Nephrolithiasis, status post right nephrectomy. 6. 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 7. History of bipolar disorder. RECOMMENDATIONS: 1. Continue long-term ventilator support. The patient has failed weaning several times. It will be futile to try weaning again. 2. Continue antibiotics as per the infectious disease tanning consultant's recommendations. As of now he is on vancomycin and cefepime. Further changes in antibiotic therapy will be made once the culture res ults are known. The exact source of sepsis is not evident at this time. 3. Continue hydration. 4. Continue inhalation therapy to clear the secretions and maintain the pulmonary hygiene. 5. Recheck the arterial blood gases for baseline. 6. Follow up chest x-ray to be ordered. Dictated By: HUMBERTO PEREZ MD SR/NTS Conf#: [id number] DID#: [id number] CC: JOSÉ ANTONIO BARRETO MD;*EndCC*
[2018-07-19] MEDS: MULTIVITAMINS THERAPEUTIC TAB GTB SCH (09:11)
[2018-07-19] MEDS: ZINC SULFATE 220 MG CAP GTB SCH (09:11)
[2018-07-19] MEDS: BISACODYL 10 MG SUPP PR SCH (09:11)
[2018-07-19] MEDS: QUETIAPINE 25 MG TAB GTB SCH ×2 (09:11→21:20)
[2018-07-19] MEDS: HEPARIN 5,000 UNIT/1 ML VIAL SC SCH ×2 (09:12→21:55)
[2018-07-19] MEDS: ACETAMINOPHEN 650MG/20.3ML CUP GTB PRN (10:58)
--- NOTE | 2018-07-19 12:53 | CONS ---
Assessment/Plan Assessment/Plan Assessment/Plan (Daily) 1. Acute Renal failure with severe Uremia, BUN 212 today 2. Septic shock on Levophed due to PNA and UTI 3. PNA concerned about HCAP 4. UTI 5. 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 ventilator dependent respiratory failure with tracheostomy 7. dysphagia with G-tube 8. chronic kidney disease III 9. history of right nephrectomy 10. left renal nephrolithiasis 11. bipolar disorder Plan: BP still labile; on Levophed- 9 mcg IV abx for Septic shock, Renally dose all abx and monitor electrolytes continue IVF NS at 100 cc/hr IV albumin 25% 100ml Q 8 hr x 3 doses pt is currently severely dry, will continue IVF NS at 100 cc/ hr We will continue to follow up Patient seen in collaboration with Dr Paul Barker. dw staff Consultation Date/Type/Reason Admit Date/Time Jul 18, 2018 at 13:59 Initial Consult Date 07/18/18 Type of Consult Nephrology Reason for Consultation Acute Renal failure with severe Uremia Requesting Provider: JOSÉ ANTONIO MIRZA MD Date/Time of Note DATE: 07/19/18 TIME: 12:40 24 HR Interval Summary Free Text/Dictation NAD SBP 87; On Levofed 9 mcgs afebrile seems comfortable on supplemental oxygen alert; open eyes when called BUN 212 today dw staff Patient seen in collaboration with Dr Paul Barker. dw staff Subjective hx not possible: pt non-verbal Constitutional: requiring IVF, requiring O2 Exam/Review of Systems Exam Vitals Vital Signs Date Temp Pulse Resp B/P (MAP) Pulse Ox O2 O2 Flow FiO2 Time Delivery Rate 07/19/18 101.1 11:45 07/19/18 82 08:00 07/19/18 20 93/61 (72) 98 06:15 07/19/18 40 05:20 07/19/18 Mechanica 04:00 l Ventilato r Intake and Output 07/18/18 07/18/18 07/19/18 1515:00 23:00 07:00 IntakeIntake Total 371.25 ml 140 ml OutputOutput Total 590 ml 770 ml BalanceBalance -218.75 ml -630 ml Constitutional: alert, non-verbal, frail Psych: nl mood/affect Eyes: nl lids, nl sclera ENMT: nl external ears & nose Respiratory: clear to auscultation Cardiovascular: bruits, other Gastrointestinal: soft, non-tender, other Musculoskeletal: muscle weakness Extremities: normal pulses Neurological: other Skin: other Results Result Diagram: 07/18/18 1842 07/18/18 1842 Results 24hrs Laboratory Tests Test 07/18/18 13:34 07/18/18 14:05 07/18/18 16:34 07/18/18 18:42 Urine Color WINDY Urine Clarity CLOUDY A Urine pH 6.0 Urine Specific 1.018 [place] Urine Ketones NEGATIVE Urine Nitrite NEGATIVE Urine Bilirubin NEGATIVE Urine NEGATIVE Urobilinogen Urine Leukocyte 3+ H Esterase Urine Microscopic 0 RBC Urine Microscopic 0 WBC Urine Amorphous MANY A Crystals Urine Hemoglobin 1+ H Urine Glucose NEGATIVE Urine Total 2+ H Protein Lactic Acid Level 0.8 0.6 White Blood Count 13.1 #H Red Blood Count 3.37 L Hemoglobin 9.3 L Hematocrit 31.4 L Mean Corpuscular 93.2 Volume Mean Corpuscular 27.6 L Hemoglobin Mean Corpuscular 29.6 L Hemoglobin Concen t Red Cell 18.5 H Distribution Width Platelet Count 124 L Mean Platelet Volume Immature 0.600 H Granulocytes % Neutrophils % 87.1 H Lymphocytes % 5.6 L Monocytes % 6.6 Eosinophils % 0.0 Basophils % 0.1 Nucleated Red 0.0 Blood Cells % Immature 0.080 H Granulocytes # Neutrophils # 11.4 H Lymphocytes # 0.7 L Monocytes # 0.9 Eosinophils # 0.0 Basophils # 0.0 Nucleated Red 0.0 Blood Cells # Sodium Level 136 Potassium Level 4.4 Chloride Level 93 L Carbon Dioxide 25 Level Anion Gap 18 H Blood Urea 212 H Nitrogen Creatinine 5.12 H Est Glomerular 13 L Filtrat Rate mL/min Glucose Level 112 Calcium Level 6.6 L Magnesium Level 4.4 H Test 07/19/18 07:29 Blood Gas Blood arterial Specimen Source Arterial Blood 07/19/2018 8:19:0 Date Drawn 0 AM Arterial Blood pH 7.427 (Temp corrected) Arterial Blood 33.2 L pCO2 (Temp correct) Arterial Blood 78.0 L pO2 (Temp corrected) Arterial Blood 21.4 L HCO3 Arterial Blood -2.2 Base Excess Arterial Blood 94.2 L Oxygen Saturation Julito Test ACCEPTAB Arterial Blood Right Radial Gas Puncture Site Arterial 0.5 Blood Carboxyhemo globin Arterial Blood 0.5 Methemoglobin Blood Gas A-a O2 169.0 H Differential Oxyhemoglobin 93.3 Percent Blood Gas 37.0 Temperature Blood Gas 20.0 Respiration Rate Blood Gas Actual 20 Respiration Rate Blood Gas VENT - AC Modality FiO2 40.0 Blood Gas Tidal 550.0 Volume Blood Gas Low 5.0 PEEP Setting Blood Gas Notified Whom Blood Gas 07/19/2018 8:27:0 Notified Time 0 AM Medications Medication Current Medications Norepinephrine 250 ml @ 1.875 mls/ hr TITRATE IV Last administered on 07/19/18 04:42; Admin Dose 15 MLS/HR; Start 07/18/18 at 18:30 Bisacodyl (Dulcolax Supp) 10 mg DAILY [place] Last administered on 07/19/18 09:11; Admin Dose 10 MG; Start 07/19/18 at 09:00 Levetiracetam (Keppra Liq (Ped)) 500 mg Q12H GTB Last administered on 07/19/18 05:55; Admin Dose 500 MG; Start 07/18/18 at 18:30 Multivitamins Therapeutic (Theragran) 1 tab DAILY GTB Last administered on 07/19/18 09:11; Admin Dose 1 TAB; Start 07/19/18 at 09:00 Quetiapine Fumarate (Seroquel) 50 mg BID GTB Last administered on 07/19/18 09:11; Admin Dose 50 MG; Start 07/18/18 at 21:00 Zinc Sulfate (Zinc Sulfate) 220 mg DAILY GTB Last administered on 07/19/18 09:11; Admin Dose 220 MG; Start 07/19/18 at 09:00 Albumin Human 100 ml @ 100 mls/hr Q8H IV Last administered on 07/19/18at 10:56; Admin Dose 100 MLS/HR; Start 07/18/18 at 18:30; Stop 07/20/18 at 11:29 IV Flush (NS 3 ml) 3 ml PER PROTOCOL IV ; Start 07/18/18 at 18:30 Ondansetron HCl (Zofran Inj) 4 mg Q6H PRN IV NAUSEA AND/OR VOMITING; Start 07/18/18 at 18:30 Albuterol (Proventil 0.083% (Neb)) 2.5 mg Q2H RESP THERAPY PRN NEB SHORTNESS OF BREATH; Start 07/18/18 at 18:30 Ipratropium [place] (Atrovent 0.02% (Neb)) 0.5 mg Q2H RESP THERAPY PRN NEB SHORTNESS OF BREATH; Start 07/18/18 at 18:30 Hydromorphone HCl (Dilaudid) 0.5 mg Q4H PRN IV PAIN LEVEL 7-10 Last administered on 07/19/18at 08:41; Admin Dose 0.5 MG; Start 07/18/18 at 18:30 Heparin Sodium (Porcine) (Heparin (5000 Units/1ml)) 5,000 unit Q12 SC Last administered on 07/19/18at 09:12; Admin Dose 5,000 UNIT; Start 07/18/18 at 21:00 Vancomycin HCl (Vanco Iv Per Pharmacy) VANCOMYCIN PER PHARMACY PER PROTOCOL XX ; Start 07/18/18 at 18:30 Cefepime HCl 50 ml @ 100 mls/hr Q24H IVPB ; Start 07/19/18 at 13:00 Sodium Chloride 1,000 ml @ 125 mls/hr Q8H IV Last administered on 07/19/18at 07:50; Admin Dose 125 MLS/HR; Start 07/18/18 at 19:00 Acetaminophen (Tylenol Liquid) 650 mg Q6H PRN GTB PAIN LEVEL 1-3 OR FEVER Last administered on 07/19/18at 10:58; Admin Dose 650 MG; Start 07/19/18 at 10:30 Famotidine (Pepcid) 20 mg Q24H GTB ; Start 07/19/18 at 19:00 Acetaminophen/ Hydrocodone Bitart ([place] (5/325)) 1 tab Q6H PRN GTB PAIN LEVEL 4-6; Start 07/19/18 at 12:30 Docusate Sodium (Colace Liquid Cup) 100 mg Q12 PRN GTB CONSTIPATION; Start 07/19/18 at 08:00 Docusate Sodium (Colace Liquid Cup) 100 mg QHS GTB ; Start 07/19/18 at 21:00 Miscellaneous Information (*Rx Drug Level Order Reminder*) RANDOM VANCOMYCIN LEVEL 6... 0500 ONCE XX ; Start 07/20/18 at 05:00; Stop 07/20/18 at 05:01 NAE VELAZCO Jul 19, 2018 12:50
[2018-07-19] MEDS: HYDROCODONE/APAP (5/325) TAB GTB PRN (12:57)
[2018-07-19] MEDS ORDERED: CEFEPIME 1GM/50 ML (PMX) 50 ML IVPB SCH (13:00)
--- NOTE | 2018-07-19 13:46 | CONS ---
Assessment/Plan Assessment/Plan Hospital Course (Demo Recall) No acute events patient is lying comfortably in bed she is on Levophed drip spiking fevers with a T-max 101.1 this morning. WBC 13.1 platelets 124 neutrophils 87.1 BUN 1212 creatinine 5.12 Urinalysis was positive for leukocyte Estrace. Microbiology: Blood cultures negative CT abdomen pelvis revealed bibasilar atelectasis and small effusions. Small ascites. Left hydroureter due to multiple small 2 mm stones in the course of the ureter cannot rule out pyelonephritis. Gastrostomy tube in the distended stomach. Allergies: Tetracyclines Indwelling's: Tracheostomy PEG suprapubic catheter, left upper extremity midline Antimicrobials: Cefepime, vancomycin Physical examination: Chronically ill-appearing wasted middle-aged man who is awake in no distress. Head atraumatic normocephalic sclera nonicteric vehicle mucosa dry neck is supple tracheostomy present chest rise symmetrical breath sounds diminished the bases. Heart: S1-S2. Abdomen soft bowel sounds present. Extremities wasted contractured Assessment: 1. Severe sepsis with shock 2. Recurrent UTI/acute pyelonephritis 3. Acute on chronic respiratory failure 4. Acute on chronic kidney disease 5. Incomplete quadriplegia 6. Anemia and thrombocytopenia 7. History of left breast nephrectomy 8. Multiple chronic decubitus ulcers Plan: Patient remains hemodynamically unstable continues to spike fevers, will change antibiotics to meropenem, Zyvox and add fluconazole for antifungal coverage, await for urine culture Consultation Date/Type/Reason Admit Date/Time Jul 18, 2018 at 13:59 Initial Consult Date 07/18/18 Type of Consult id Requesting Provider: JOSÉ ANTONIO MIRZA MD Date/Time of Note DATE: 07/19/18 TIME: 13:45 Exam/Review of Systems Exam Vitals Vital Signs Date Temp Pulse Resp B/P (MAP) Pulse Ox O2 O2 Flow FiO2 Time Delivery Rate 07/19/18 77 12:00 07/19/18 101.1 11:45 07/19/18 20 93/61 (72) 98 06:15 07/19/18 40 05:20 07/19/18 Mechanica 04:00 l Ventilato r Intake and Output 07/18/18 07/18/18 07/19/18 1515:00 23:00 07:00 IntakeIntake Total 371.25 ml 140 ml OutputOutput Total 590 ml 770 ml BalanceBalance -218.75 ml -630 ml Results Result Diagram: 07/18/18 1842 07/18/18 1842 Results 24hrs Laboratory Tests Test 07/18/18 14:05 07/18/18 16:34 07/18/18 18:42 07/19/18 07:29 Lactic Acid Level 0.8 0.6 White Blood Count 13.1 #H Red Blood Count 3.37 L Hemoglobin 9.3 L Hematocrit 31.4 L Mean Corpuscular 93.2 Volume Mean Corpuscular 27.6 L Hemoglobin Mean Corpuscular 29.6 L Hemoglobin Concen t Red Cell 18.5 H Distribution Width Platelet Count 124 L Mean Platelet Volume Immature 0.600 H Granulocytes % Neutrophils % 87.1 H Lymphocytes % 5.6 L Monocytes % 6.6 Eosinophils % 0.0 Basophils % 0.1 Nucleated Red 0.0 Blood Cells % Immature 0.080 H Granulocytes # Neutrophils # 11.4 H Lymphocytes # 0.7 L Monocytes # 0.9 Eosinophils # 0.0 Basophils # 0.0 Nucleated Red 0.0 Blood Cells # Sodium Level 136 Potassium Level 4.4 Chloride Level 93 L Carbon Dioxide 25 Level Anion Gap 18 H Blood Urea 212 H Nitrogen Creatinine 5.12 H Est Glomerular 13 L Filtrat Rate mL/min Glucose Level 112 Calcium Level 6.6 L Magnesium Level 4.4 H Blood Gas Blood arterial Specimen Source Arterial Blood 07/19/2018 8:19:0 Date Drawn 0 AM Arterial Blood pH 7.427 (Temp corrected) Arterial Blood 33.2 L pCO2 (Temp correct) Arterial Blood 78.0 L pO2 (Temp corrected) Arterial Blood 21.4 L HCO3 Arterial Blood -2.2 Base Excess Arterial Blood 94.2 L Oxygen Saturation Julito Test ACCEPTAB Arterial Blood Right Radial Gas Puncture Site Arterial 0.5 Blood Carboxyhemo globin Arterial Blood 0.5 Methemoglobin Blood Gas A-a O2 169.0 H Differential Oxyhemoglobin 93.3 Percent Blood Gas 37.0 Temperature Blood Gas 20.0 Respiration Rate Blood Gas Actual 20 Respiration Rate Blood Gas VENT - AC Modality FiO2 40.0 Blood Gas Tidal 550.0 Volume Blood Gas Low 5.0 PEEP Setting Blood Gas CW Notified Whom Blood Gas 07/19/2018 8:27:0 Notified Time 0 AM Medications Medication Current Medications Norepinephrine 250 ml @ 1.875 mls/ hr TITRATE IV Last administered on 07/19/18 04:42; Admin Dose 15 MLS/HR; Start 07/18/18 at 18:30 Bisacodyl (Dulcolax Supp) 10 mg DAILY [place] Last administered on 07/19/18 09:11; Admin Dose 10 MG; Start 07/19/18 at 09:00 Levetiracetam (Keppra Liq (Ped)) 500 mg Q12H GTB Last administered on 07/19/18 05:55; Admin Dose 500 MG; Start 07/18/18 at 18:30 Multivitamins Therapeutic (Theragran) 1 tab DAILY GTB Last administered on 07/19/18 09:11; Admin Dose 1 TAB; Start 07/19/18 at 09:00 Quetiapine Fumarate (Seroquel) 50 mg BID GTB Last administered on 07/19/18 09:11; Admin Dose 50 MG; Start 07/18/18 at 21:00 Zinc Sulfate (Zinc Sulfate) 220 mg DAILY GTB Last administered on 07/19/18 09:11; Admin Dose 220 MG; Start 07/19/18 at 09:00 Albumin Human 100 ml @ 100 mls/hr Q8H IV Last administered on 07/19/18 10:56; Admin Dose 100 MLS/HR; Start 07/18/18 at 18:30; Stop 07/20/18 at 11:29 IV Flush (NS 3 ml) 3 ml PER PROTOCOL IV ; Start 07/18/18 at 18:30 Ondansetron HCl (Zofran Inj) 4 mg Q6H PRN IV NAUSEA AND/OR VOMITING; Start 07/18/18 at 18:30 Albuterol (Proventil 0.083% (Neb)) 2.5 mg Q2H RESP THERAPY PRN NEB SHORTNESS OF BREATH; Start 07/18/18 at 18:30 Ipratropium [place] (Atrovent 0.02% (Neb)) 0.5 mg Q2H RESP THERAPY PRN NEB SHORTNESS OF BREATH; Start 07/18/18 at 18:30 Hydromorphone HCl (Dilaudid) 0.5 mg Q4H PRN IV PAIN LEVEL 7-10 Last administered on 6/13/19at 08:41; Admin Dose 0.5 MG; Start 07/18/18 at 18:30 Heparin Sodium (Porcine) (Heparin (5000 Units/1ml)) 5,000 unit Q12 SC Last administered on 07/19/18at 09:12; Admin Dose 5,000 UNIT; Start 07/18/18 at 21:00 Vancomycin HCl (Vanco Iv Per Pharmacy) VANCOMYCIN PER PHARMACY PER PROTOCOL XX ; Start 07/18/18 at 18:30 Cefepime HCl 50 ml @ 100 mls/hr Q24H IVPB Last administered on 07/19/18at 12:57; Admin Dose 100 MLS/HR; Start 07/19/18 at 13:00 Sodium Chloride 1,000 ml @ 125 mls/hr Q8H IV Last administered on 07/19/18at 07:50; Admin Dose 125 MLS/HR; Start 07/18/18 at 19:00 Acetaminophen (Tylenol Liquid) 650 mg Q6H PRN GTB PAIN LEVEL 1-3 OR FEVER Last administered on 07/19/18at 10:58; Admin Dose 650 MG; Start 07/19/18 at 10:30 Famotidine (Pepcid) 20 mg Q24H GTB ; Start 07/19/18 at 19:00 Acetaminophen/ Hydrocodone Bitart ([place] (5/325)) 1 tab Q6H PRN GTB PAIN LEVEL 4-6 Last administered on 07/19/18at 12:57; Admin Dose 1 TAB; Start 07/19/18 at 12:30 Docusate Sodium (Colace Liquid Cup) 100 mg Q12 PRN GTB CONSTIPATION; Start 07/19/18 at 08:00 Docusate Sodium (Colace Liquid Cup) 100 mg QHS GTB ; Start 07/19/18 at 21:00 Miscellaneous Information (*Rx Drug Level Order Reminder*) RANDOM VANCOMYCIN LEVEL 6... 0500 ONCE XX ; Start 07/20/18 at 05:00; Stop 07/20/18 at 05:01 REGINALDO CHERY NP Jul 19, 2018 13:46
[2018-07-19] MEDS: MEROPENEM 500MG/50 ML (PMX) 50 ML IVPB SCH ×2 (14:44→21:19)
[2018-07-19] MEDS: FLUCONAZOLE 100 MG/50 ML (PMX) 50 ML IVPB SCH (15:12)
--- NOTE | 2018-07-19 15:57 | PN ---
Date/Time of Note Date/Time of Note DATE: 07/19/18 TIME: 15:47 Assessment/Plan VTE Prophylaxis Risk score (from Ns)>0 risk: 3 SCD applied (from Ns): Yes Pharmacological prophylaxis: heparin Lines/Catheters IV Catheter Type (from Nrs): Mid Line Central line still needed: Yes Reason Cath still needed: urinary retention Assessment/Plan Hospital Course Patient continues on Levophed for blood pressure support continues on IV fluids, will restart G-tube feeding nephro 20 cc/h we will increase by 10 every 4 hours to the goal of 50 until further dietary recommendations. Patient continues to spike fevers continue Tylenol as needed and cooling measures. Assessment/Plan - Sepsis with shock injury to possible healthcare acquired pneumonia and UTI, continue IV fluids and broad-spectrum antibiotics monitor lactic acid, will f/up on cultures. Dr. Maciel is following in infection disease consultation. - Dehydration, continue IV fluids. - Acute on chronic renal failure, continue IV fluids. Continue to monitor BUN and creatinine. Dr. Barker is following in nephrology consultation. - Ventilator dependent respiratory failure, continue pulmonary toilet and bronchodilators. Dr Ames is following in pulmonology consultation. - Neurogenic bladder with suprapubic catheter. - Dysphagia with gastrostomy tube. - Multiple decubitus ulcers present on admission. Will obtain wound care consult. - Cervical spine injury with paraplegia. - Bipolar disorder with psychosis. - Hx of right nephrectomy - Hx of left renal nephrolithiasis, hx of lithotripsy with insertion and subsequent removal of ureteral JJ stent. Critical care time spent is 30 minutes. Further recommendations based on clinical course. Plan of care discussed with Dr. Barreto. Result Diagram: 07/18/18 1842 07/18/18 1842 Results 24hrs Laboratory Tests Test 07/18/18 16:34 07/18/18 18:42 07/19/18 07:29 Lactic Acid Level 0.6 White Blood Count 13.1 #H Red Blood Count 3.37 L Hemoglobin 9.3 L Hematocrit 31.4 L Mean Corpuscular Volume 93.2 Mean Corpuscular Hemoglobin 27.6 L Mean Corpuscular 29.6 L Hemoglobin Concent Red Cell Distribution Width 18.5 H Platelet Count 124 L Mean Platelet Volume Immature Granulocytes % 0.600 H Neutrophils % 87.1 H Lymphocytes % 5.6 L Monocytes % 6.6 Eosinophils % 0.0 Basophils % 0.1 Nucleated Red Blood Cells % 0.0 Immature Granulocytes # 0.080 H Neutrophils # 11.4 H Lymphocytes # 0.7 L Monocytes # 0.9 Eosinophils # 0.0 Basophils # 0.0 Nucleated Red Blood Cells # 0.0 Sodium Level 136 Potassium Level 4.4 Chloride Level 93 L Carbon Dioxide Level 25 Anion Gap 18 H Blood Urea Nitrogen 212 H Creatinine 5.12 H Est Glomerular Filtrat 13 L Rate mL/min Glucose Level 112 Calcium Level 6.6 L Magnesium Level 4.4 H Blood Gas Specimen Source Blood arterial Arterial Blood Date Drawn 07/19/2018 8:19:00 AM Arterial Blood pH 7.427 (Temp corrected) Arterial Blood pCO2 33.2 L (Temp correct) Arterial Blood pO2 78.0 L (Temp corrected) Arterial Blood HCO3 21.4 L Arterial Blood Base Excess -2.2 Arterial Blood 94.2 L Oxygen Saturation Julito Test ACCEPTAB Arterial Blood Gas Right Radial Puncture Site Arterial 0.5 Blood Carboxyhemoglobin Arterial Blood Methemoglobin 0.5 Blood Gas A-a O2 169.0 H Differential Oxyhemoglobin Percent 93.3 Blood Gas Temperature 37.0 Blood Gas Respiration Rate 20.0 Blood Gas Actual 20 Respiration Rate Blood Gas Modality VENT - AC FiO2 40.0 Blood Gas Tidal Volume 550.0 Blood Gas Low PEEP Setting 5.0 Blood Gas Notified Whom CW Blood Gas Notified Time 07/19/2018 8:27:00 AM Exam/Review of Systems Exam Vitals Vital Signs Date Temp Pulse Resp B/P (MAP) Pulse Ox O2 O2 Flow FiO2 Time Delivery Rate 07/19/18 77 12:00 07/19/18 101.1 11:45 07/19/18 20 93/61 (72) 98 06:15 07/19/18 40 05:20 07/19/18 Mechanica 04:00 l Ventilato r Intake and Output 07/18/18 07/18/18 07/19/18 1515:00 23:00 07:00 IntakeIntake Total 371.25 ml 140 ml OutputOutput Total 590 ml 770 ml BalanceBalance -218.75 ml -630 ml Exam Constitutional: alert, awake Neck: supple, other (Tracheostomy) Respiratory: diminished breath sounds, other (Scattered Rhonchi) Cardiovascular: regular rate and rhythm Gastrointestinal: soft, non-tender, other (G-tube) Genitourinary - Male: other (Suprapubic catheter) Extremities: normal pulses, other (Contracted) Neurological: other (Paraplegia) Skin: other (Multiple wounds) Results Results 24hrs Laboratory Tests Test 07/18/18 16:34 07/18/18 18:42 07/19/18 07:29 Lactic Acid Level 0.6 White Blood Count 13.1 #H Red Blood Count 3.37 L Hemoglobin 9.3 L Hematocrit 31.4 L Mean Corpuscular Volume 93.2 Mean Corpuscular Hemoglobin 27.6 L Mean Corpuscular 29.6 L Hemoglobin Concent Red Cell Distribution Width 18.5 H Platelet Count 124 L Mean Platelet Volume Immature Granulocytes % 0.600 H Neutrophils % 87.1 H Lymphocytes % 5.6 L Monocytes % 6.6 Eosinophils % 0.0 Basophils % 0.1 Nucleated Red Blood Cells % 0.0 Immature Granulocytes # 0.080 H Neutrophils # 11.4 H Lymphocytes # 0.7 L Monocytes # 0.9 Eosinophils # 0.0 Basophils # 0.0 Nucleated Red Blood Cells # 0.0 Sodium Level 136 Potassium Level 4.4 Chloride Level 93 L Carbon Dioxide Level 25 Anion Gap 18 H Blood Urea Nitrogen 212 H Creatinine 5.12 H Est Glomerular Filtrat 13 L Rate mL/min Glucose Level 112 Calcium Level 6.6 L Magnesium Level 4.4 H Blood Gas Specimen Source Blood arterial Arterial Blood Date Drawn 07/19/2018 8:19:00 AM Arterial Blood pH 7.427 (Temp corrected) Arterial Blood pCO2 33.2 L (Temp correct) Arterial Blood pO2 78.0 L (Temp corrected) Arterial Blood HCO3 21.4 L Arterial Blood Base Excess -2.2 Arterial Blood 94.2 L Oxygen Saturation Julito Test ACCEPTAB Arterial Blood Gas Right Radial Puncture Site Arterial 0.5 Blood Carboxyhemoglobin Arterial Blood Methemoglobin 0.5 Blood Gas A-a O2 169.0 H Differential Oxyhemoglobin Percent 93.3 Blood Gas Temperature 37.0 Blood Gas Respiration Rate 20.0 Blood Gas Actual 20 Respiration Rate Blood Gas Modality VENT - AC FiO2 40.0 Blood Gas Tidal Volume 550.0 Blood Gas Low PEEP Setting 5.0 Blood Gas Notified Whom CW Blood Gas Notified Time 07/19/2018 8:27:00 AM Medications Medication Current Medications Norepinephrine 250 ml @ 1.875 mls/ hr TITRATE IV Last administered on 07/19/18 04:42; Admin Dose 15 MLS/HR; Start 07/18/18 at 18:30 Bisacodyl (Dulcolax Supp) 10 mg DAILY [place] Last administered on 07/19/18 09:11; Admin Dose 10 MG; Start 07/19/18 at 09:00 Levetiracetam (Keppra Liq (Ped)) 500 mg Q12H GTB Last administered on 07/19/18 05:55; Admin Dose 500 MG; Start 07/18/18 at 18:30 Multivitamins Therapeutic (Theragran) 1 tab DAILY GTB Last administered on 07/19/18 09:11; Admin Dose 1 TAB; Start 07/19/18 at 09:00 Quetiapine Fumarate (Seroquel) 50 mg BID GTB Last administered on 07/19/18 09:11; Admin Dose 50 MG; Start 07/18/18 at 21:00 Zinc Sulfate (Zinc Sulfate) 220 mg DAILY GTB Last administered on 07/19/18 09:11; Admin Dose 220 MG; Start 07/19/18 at 09:00 Albumin Human 100 ml @ 100 mls/hr Q8H IV Last administered on 07/19/18 10:56; Admin Dose 100 MLS/HR; Start 07/18/18 at 18:30; Stop 07/20/18 at 11:29 IV Flush (NS 3 ml) 3 ml PER PROTOCOL IV ; Start 07/18/18 at 18:30 Ondansetron HCl (Zofran Inj) 4 mg Q6H PRN IV NAUSEA AND/OR VOMITING; Start 07/18/18 at 18:30 Albuterol (Proventil 0.083% (Neb)) 2.5 mg Q2H RESP THERAPY PRN NEB SHORTNESS OF BREATH; Start 07/18/18 at 18:30 Ipratropium [place] (Atrovent 0.02% (Neb)) 0.5 mg Q2H RESP THERAPY PRN NEB SHORTNESS OF BREATH; Start 07/18/18 at 18:30 Hydromorphone HCl (Dilaudid) 0.5 mg Q4H PRN IV PAIN LEVEL 7-10 Last administered on 07/19/18 14:34; Admin Dose 0.5 MG; Start 07/18/18 at 18:30 Heparin Sodium (Porcine) (Heparin (5000 Units/1ml)) 5,000 unit Q12 SC Last administered on 07/19/18at 09:12; Admin Dose 5,000 UNIT; Start 07/18/18 at 21:00 Sodium Chloride 1,000 ml @ 125 mls/hr Q8H IV Last administered on 07/19/18at 07:50; Admin Dose 125 MLS/HR; Start 07/18/18 at 19:00 Acetaminophen (Tylenol Liquid) 650 mg Q6H PRN GTB PAIN LEVEL 1-3 OR FEVER Last administered on 07/19/18at 10:58; Admin Dose 650 MG; Start 07/19/18 at 10:30 Famotidine (Pepcid) 20 mg Q24H GTB ; Start 07/19/18 at 19:00 Acetaminophen/ Hydrocodone Bitart ([place] (5/325)) 1 tab Q6H PRN GTB PAIN LEVEL 4-6 Last administered on 07/19/18at 12:57; Admin Dose 1 TAB; Start 07/19/18 at 12:30 Docusate Sodium (Colace Liquid Cup) 100 mg Q12 PRN GTB CONSTIPATION; Start 07/19/18 at 08:00 Docusate Sodium (Colace Liquid Cup) 100 mg QHS GTB ; Start 07/19/18 at 21:00 Fluconazole/ Sodium Chloride 50 ml @ 50 mls/hr Q24H IVPB Last administered on 07/19/18at 15:12; Admin Dose 50 MLS/HR; Start 07/19/18 at 15:00 Linezolid 300 ml @ 300 mls/hr Q12 IVPB ; Start 07/19/18 at 21:00 Meropenem/Sodium Chloride 50 ml @ 100 mls/hr Q12 IVPB Last administered on 07/19/18at 14:44; Admin Dose 100 MLS/HR; Start 07/19/18 at 14:00 AISSATOU DUNCAN Jul 19, 2018 15:56
[2018-07-19] MEDS: DOCUSATE SODIUM 10 MG/ML (10ML CUP) GTB SCH (21:19)
[2018-07-19] MEDS: FAMOTIDINE 20 MG TAB GTB SCH (21:20)
[2018-07-19] MEDS: LINEZOLID 600 MG/300 ML (PMX) 300 ML IVPB SCH (21:20)
[2018-07-20] VITALS (91 sets, daily range): BP systolic 81–107; BP diastolic 42–65; PULSE 75–100; RESP 14–30
[2018-07-20] MEDS: HYDROCODONE/APAP (5/325) TAB GTB PRN ×2 (01:18→13:44)
[2018-07-20] MEDS: SOD CHLORIDE 0.9% 1,000 ML IV SCH ×3 (01:24→18:23)
[2018-07-20] MEDS: ALBUMIN HUMAN 25% 100 ML IV SCH ×2 (02:22→11:05)
[2018-07-20] MEDS: HYDROmorphONE 0.5 MG/0.5 ML SYG IV PRN ×6 (02:27→22:52)
[2018-07-20] MEDS: IPRATROPIUM (NEB) 0.5 MG/2.5 ML AMP NEB PRN (03:25)
[2018-07-20] MEDS: ALBUTEROL 0.083% (NEB) 2.5 MG/3 ML AMP NEB PRN ×2 (03:25→23:05)
--- NOTE | 2018-07-20 06:00 | PN ---
Date/Time of Note Date/Time of Note DATE: 07/20/18 TIME: 05:59 Assessment/Plan VTE Prophylaxis Risk score (from [facility] [place])>0 risk: 7 SCD applied (from [facility] [place]): No SCD contraindicated: other Pharmacological prophylaxis: other Pharm contraindication: other Lines/Catheters IV Catheter Type ([facility] PICC Line Central line still needed: Yes Assessment/Plan Assessment/Plan - Sepsis with shock injury to possible healthcare acquired pneumonia and UTI -continue IV fluids and broad-spectrum antibiotics -Dr. Maciel is following in infection disease consultation. - Dehydration, continue IV fluids. - Acute on chronic renal failure, continue IV fluids. Continue to monitor BUN and creatinine. - Dr. Barker is following in nephrology consultation. - Ventilator dependent respiratory failure, continue pulmonary toilet and bronchodilators. -Dr Ames is following in pulmonology consultation. - Neurogenic bladder with suprapubic catheter. - Dysphagia with gastrostomy tube. - Multiple decubitus ulcers present on admission. - per wound care consult. - Cervical spine injury with paraplegia. - Bipolar disorder with psychosis. - Hx of right nephrectomy - Hx of left renal nephrolithiasis, hx of lithotripsy with insertion and subsequent removal of ureteral JJ stent. Critical care time spent is 30 minutes. Further recommendations based on clinical course. Plan of care discussed with Dr. Barreto. Result Diagram: 07/20/18 0438 07/20/18 0431 Results 24hrs Laboratory Tests Test 07/19/18 07:29 07/20/18 04:31 07/20/18 04:38 Blood Gas Specimen Source Blood arterial Arterial Blood Date Drawn 07/19/2018 8:19:00 AM Arterial Blood pH 7.427 (Temp corrected) Arterial Blood pCO2 33.2 L (Temp correct) Arterial Blood pO2 78.0 L (Temp corrected) Arterial Blood HCO3 21.4 L Arterial Blood Base Excess -2.2 Arterial Blood 94.2 L Oxygen Saturation Julito Test ACCEPTAB Arterial Blood Gas Right Radial Puncture Site Arterial 0.5 Blood Carboxyhemoglobin Arterial Blood Methemoglobin 0.5 Blood Gas A-a O2 169.0 H Differential Oxyhemoglobin Percent 93.3 Blood Gas Temperature 37.0 Blood Gas Respiration Rate 20.0 Blood Gas Actual 20 Respiration Rate Blood Gas Modality VENT - AC FiO2 40.0 Blood Gas Tidal Volume 550.0 Blood Gas Low PEEP Setting 5.0 Blood Gas Notified Whom Blood Gas Notified Time 07/19/2018 8:27:00 AM Sodium Level 143 Potassium Level 3.9 Chloride Level 107 # Carbon Dioxide Level 18 L Anion Gap 18 H Blood Urea Nitrogen 169 H Creatinine 4.26 H Est Glomerular Filtrat 15 L Rate mL/min Glucose Level 110 Calcium Level 7.6 L White Blood Count 11.4 H Red Blood Count 2.87 L Hemoglobin 7.8 L Hematocrit 28.2 L Mean Corpuscular Volume 98.3 Mean Corpuscular Hemoglobin 27.2 L Mean Corpuscular 27.7 L Hemoglobin Concent Red Cell Distribution Width 18.3 H Platelet Count 123 L Mean Platelet Volume Immature Granulocytes % 1.900 H Neutrophils % 86.7 H Lymphocytes % 4.7 L Monocytes % 5.9 Eosinophils % 0.3 Basophils % 0.5 Nucleated Red Blood Cells % 0.0 Immature Granulocytes # 0.220 H Neutrophils # 9.9 H Lymphocytes # 0.5 L Monocytes # 0.7 Eosinophils # 0.0 Basophils # 0.1 Nucleated Red Blood Cells # 0.0 Subjective 24 Hr Interval Summary Free Text/Dictation remains on trach to vent hypotension- levo- 11 mcg now staff Exam/Review of Systems Exam Vitals Vital Signs Date Temp Pulse Resp B/P (MAP) Pulse Ox O2 O2 Flow FiO2 Time Delivery Rate 07/20/18 87 20 93/49 (64) 91 05:30 07/20/18 98.6 04:00 07/20/18 40 03:27 07/20/18 Mechanical 02:00 Ventilator Intake and Output 07/19/18 07/19/18 07/20/18 1515:00 23:00 07:00 IntakeIntake Total 1270 ml 1405.00 ml 338.75 ml OutputOutput Total 825 ml 580 ml 460 ml BalanceBalance 445 ml 825.00 ml -121.25 ml Constitutional: non-verbal, frail Psych: nl mood/affect Head: normocephalic Eyes: nl lids, nl sclera ENMT: nl external ears & nose Neck: non-tender, other (trach intact) Respiratory: clear to auscultation Cardiovascular: nl pulses, other (s1s2) Gastrointestinal: soft, other (gt intact) Musculoskeletal: muscle weakness, range of motion Extremities: normal pulses Neurological: other (alert) Skin: other (decubs ) Results Results 24hrs Laboratory Tests Test 07/19/18 07:29 07/20/18 04:31 07/20/18 04:38 Blood Gas Specimen Source Blood arterial Arterial Blood Date Drawn 07/19/2018 8:19:00 AM Arterial Blood pH 7.427 (Temp corrected) Arterial Blood pCO2 33.2 L (Temp correct) Arterial Blood pO2 78.0 L (Temp corrected) Arterial Blood HCO3 21.4 L Arterial Blood Base Excess -2.2 Arterial Blood 94.2 L Oxygen Saturation Julito Test ACCEPTAB Arterial Blood Gas Right Radial Puncture Site Arterial 0.5 Blood Carboxyhemoglobin Arterial Blood Methemoglobin 0.5 Blood Gas A-a O2 169.0 H Differential Oxyhemoglobin Percent 93.3 Blood Gas Temperature 37.0 Blood Gas Respiration Rate 20.0 Blood Gas Actual 20 Respiration Rate Blood Gas Modality VENT - AC FiO2 40.0 Blood Gas Tidal Volume 550.0 Blood Gas Low PEEP Setting 5.0 Blood Gas Notified Whom CW Blood Gas Notified Time 07/19/2018 8:27:00 AM Sodium Level 143 Potassium Level 3.9 Chloride Level 107 # Carbon Dioxide Level 18 L Anion Gap 18 H Blood Urea Nitrogen 169 H Creatinine 4.26 H Est Glomerular Filtrat 15 L Rate mL/min Glucose Level 110 Calcium Level 7.6 L White Blood Count 11.4 H Red Blood Count 2.87 L Hemoglobin 7.8 L Hematocrit 28.2 L Mean Corpuscular Volume 98.3 Mean Corpuscular Hemoglobin 27.2 L Mean Corpuscular 27.7 L Hemoglobin Concent Red Cell Distribution Width 18.3 H Platelet Count 123 L Mean Platelet Volume Immature Granulocytes % 1.900 H Neutrophils % 86.7 H Lymphocytes % 4.7 L Monocytes % 5.9 Eosinophils % 0.3 Basophils % 0.5 Nucleated Red Blood Cells % 0.0 Immature Granulocytes # 0.220 H Neutrophils # 9.9 H Lymphocytes # 0.5 L Monocytes # 0.7 Eosinophils # 0.0 Basophils # 0.1 Nucleated Red Blood Cells # 0.0 Medications Medication Current Medications Norepinephrine 250 ml @ 1.875 mls/ hr TITRATE IV Last administered on 07/19/18at 19:36; Admin Dose 15 MLS/HR; Start 07/18/18 at 18:30 Bisacodyl (Dulcolax Supp) 10 mg DAILY [place] Last administered on 07/19/18at 09:11; Admin Dose 10 MG; Start 07/19/18 at 09:00 Levetiracetam (Keppra Liq (Ped)) 500 mg Q12H GTB Last administered on 07/19/18 18:37; Admin Dose 500 MG; Start 07/18/18 at 18:30 Multivitamins Therapeutic (Theragran) 1 tab DAILY GTB Last administered on 07/19/18 09:11; Admin Dose 1 TAB; Start 07/19/18 at 09:00 Quetiapine Fumarate (Seroquel) 50 mg BID GTB Last administered on 07/19/18 21:20; Admin Dose 50 MG; Start 07/18/18 at 21:00 Zinc Sulfate (Zinc Sulfate) 220 mg DAILY GTB Last administered on 07/19/18 09:11; Admin Dose 220 MG; Start 07/19/18 at 09:00 Albumin Human 100 ml @ 100 mls/hr Q8H IV Last administered on 07/20/18 02:22; Admin Dose 100 MLS/HR; Start 07/18/18 at 18:30; Stop 07/20/18 at 11:29 IV Flush (NS 3 ml) 3 ml PER PROTOCOL IV ; Start 07/18/18 at 18:30 Ondansetron HCl (Zofran Inj) 4 mg Q6H PRN IV NAUSEA AND/OR VOMITING; Start 07/18/18 at 18:30 Albuterol (Proventil 0.083% (Neb)) 2.5 mg Q2H RESP THERAPY PRN NEB SHORTNESS OF BREATH Last administered on 07/20/18 03:25; Admin Dose 2.5 MG; Start 07/18/18 at 18:30 Ipratropium [place] (Atrovent 0.02% (Neb)) 0.5 mg Q2H RESP THERAPY PRN NEB SHORTNESS OF BREATH Last administered on 07/20/18 03:25; Admin Dose 0.5 MG; Start 07/18/18 at 18:30 Hydromorphone HCl (Dilaudid) 0.5 mg Q4H PRN IV PAIN LEVEL 7-10 Last administered on 07/20/18 02:27; Admin Dose 0.5 MG; Start 07/18/18 at 18:30 Heparin Sodium (Porcine) (Heparin (5000 Units/1ml)) 5,000 unit Q12 SC Last administered on 07/19/18 21:55; Admin Dose 5,000 UNIT; Start 07/18/18 at 21:00 Sodium Chloride 1,000 ml @ 125 mls/hr Q8H IV Last administered on 07/20/18 01:24; Admin Dose 125 MLS/HR; Start 07/18/18 at 19:00 Acetaminophen (Tylenol Liquid) 650 mg Q6H PRN GTB PAIN LEVEL 1-3 OR FEVER Last administered on 07/19/18 10:58; Admin Dose 650 MG; Start 07/19/18 at 10:30 Famotidine (Pepcid) 20 mg Q24H GTB Last administered on 07/19/18 21:20; Admin Dose 20 MG; Start 07/19/18 at 19:00 Acetaminophen/ Hydrocodone Bitart ([place] (5/325)) 1 tab Q6H PRN GTB PAIN LEVEL 4-6 Last administered on 07/20/18 01:18; Admin Dose 1 TAB; Start 07/19/18 at 12:30 Docusate Sodium (Colace Liquid Cup) 100 mg Q12 PRN GTB CONSTIPATION; Start 07/19/18 at 08:00 Docusate Sodium (Colace Liquid Cup) 100 mg QHS GTB Last administered on 07/19/18 21:19; Admin Dose 100 MG; Start 07/19/18 at 21:00 Fluconazole/ Sodium Chloride 50 ml @ 50 mls/hr Q24H IVPB Last administered on 07/19/18 15:12; Admin Dose 50 MLS/HR; Start 07/19/18 at 15:00 Linezolid 300 ml @ 300 mls/hr Q12 IVPB Last administered on 07/19/18 21:20; Admin Dose 300 MLS/HR; Start 07/19/18 at 21:00 Meropenem/Sodium Chloride 50 ml @ 100 mls/hr Q12 IVPB Last administered on 07/19/18 21:19; Admin Dose 100 MLS/HR; Start 07/19/18 at 14:00 IV Flush (NS 10 ml) 10 ml PRN PRN IV FLUSH LINE; Start 07/19/18 at 18:30 NAE VELAZCO Jul 20, 2018 06:00
[2018-07-20] MEDS: LEVETIRACETAM (100 MG/ML PO SYG) GTB SCH (06:11)
[2018-07-20] MEDS: MULTIVITAMINS THERAPEUTIC TAB GTB SCH (08:34)
[2018-07-20] MEDS: BISACODYL 10 MG SUPP PR SCH (08:34)
[2018-07-20] MEDS: ZINC SULFATE 220 MG CAP GTB SCH (08:34)
[2018-07-20] MEDS: QUETIAPINE 25 MG TAB GTB SCH ×2 (08:34→21:59)
[2018-07-20] MEDS: HEPARIN 5,000 UNIT/1 ML VIAL SC SCH ×2 (08:36→22:08)
[2018-07-20] MEDS: NORepinephrine 8MG/250 ML (PMX 250 ML IV SCH ×2 (08:36→18:23)
[2018-07-20] MEDS: MEROPENEM 500MG/50 ML (PMX) 50 ML IVPB SCH (08:37)
[2018-07-20] MEDS: LINEZOLID 600 MG/300 ML (PMX) 300 ML IVPB SCH ×2 (08:37→21:00)
--- NOTE | 2018-07-20 13:31 | PN ---
DATE: 07/20/2018 SUBJECTIVE: The patient is in ICU on the ventilator support. His blood pressure is being maintained with Levophed. PHYSICAL EXAMINATION: VITAL SIGNS: Temperature 98.6, pulse rate of 90, respirations 20, blood pressure 97/46, pulse oximet ry showing 96% saturation. He is on 40% inhaled oxygen concentration. NECK: Tracheal secretions are minimal to moderate, clear. No bleeding seen. HEART: Regular sinus rhythm. CHEST: Breath sounds are diminished in the lower lung tier[place] with a few rales and rhonchi. ABDOMEN: Soft. G-tube feeding is tolerated well. Bowel sounds are present. EXTREMITIES: Show no edema. He is paraplegic. LABORATORY DATA: Show sodium 143, potassium 3.9, BUN and creatinine slightly better. BUN is decreas ed to 169, creatinine 4.26, bicarbonate is 18, and glucose is 110. The CBC shows WBC 11,400, hemoglo bin 7.8, hematocrit 28.2, platelets decreased to 123,000. Urine culture is reported to show Acinetobacter baumannii. IMPRESSION: 1. Septic shock. 2. Chronic ventilator dependent respiratory failure. 3. Chronic kidney disease with acute kidney injury. 4. Chronic anemia. 5. History of nephrolithiasis, status post right nephrectomy. 6. 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 7. History of bipolar disorder. RECOMMENDATIONS: 1. Continue long-term ventilator support. 2. Continue antibiotics as per the infectious disease media consultant's recommendations. 3. Continue hydration. 4. Continue inhalation therapy to clear the secretions and maintain pulmonary hygiene. Dictated By: HUMBERTO PEREZ MD SR/NTS Conf#: [id number] DID#: [id number] CC: JOSÉ ANTONIO MIRZA MD;*EndCC*
--- NOTE | 2018-07-20 13:32 | CONS ---
Assessment/Plan Assessment/Plan Hospital Course (Demo Recall) No acute events patient is awake looks comfortable. Still remains on Levophed. T-max yesterday 101.1. WBC 11.4 platelets 123 neutrophils 86.7 BUN 169 creatinine 4.26 Microbiology: Urine culture grew Acinetobacter susceptible to gentamicin tobramycin and Bactrim, blood cultures negative Allergies: Tetracyclines Antimicrobials: Zyvox, Merrem Diflucan Indwelling: Trach, PEG, PICC line, suprapubic catheter CT abdomen pelvis revealed bibasilar atelectasis and small effusions. Small asc ites. Left hydroureter due to multiple small 2 mm stones in the course of the ureter cannot rule out pyelonephritis. Gastrostomy tube in the distended stomach. Allergies: Tetracyclines Physical examination: Chronically ill-appearing wasted middle-aged man who is awake in no distress. Head atraumatic normocephalic sclera nonicteric vehicle mucosa dry neck is supple tracheostomy present chest rise symmetrical breath sounds diminished the bases. Heart: S1-S2. Abdomen soft bowel sounds present. Extremities wasted contractured Assessment: 1. Severe sepsis with shock 2. Recurrent UTI/acute pyelonephritis 3. Acute on chronic respiratory failure 4. Acute on chronic kidney disease 5. Incomplete quadriplegia 6. Anemia and thrombocytopenia 7. History of left breast nephrectomy 8. Multiple chronic decubitus ulcers Plan: Patient remains hemodynamically unstable, change meropenem to gentamicin Consultation Date/Type/Reason Admit Date/Time Jul 18, 2018 at 13:59 Initial Consult Date 07/18/18 Type of Consult id Requesting Provider: JOSÉ ANTONIO MIRZA MD Date/Time of Note DATE: 07/20/18 TIME: 13:30 Exam/Review of Systems Exam Vitals Vital Signs Date Temp Pulse Resp B/P (MAP) Pulse Ox O2 O2 Flow FiO2 Time Delivery Rate 07/20/18 89 20 98 45 12:58 07/20/18 97/46 (63) 06:15 07/20/18 98.6 04:00 07/20/18 Mechanical 02:00 Ventilator Intake and Output 07/19/18 07/19/18 07/20/18 1515:00 23:00 07:00 IntakeIntake Total 1270 ml 1405.00 ml 1185.75 ml OutputOutput Total 825 ml 580 ml 510 ml BalanceBalance 445 ml 825.00 ml 675.75 ml Results Result Diagram: 07/20/18 0438 07/20/18 0431 Results 24hrs Laboratory Tests Test 07/20/18 04:31 07/20/18 04:38 Sodium Level 143 Potassium Level 3.9 Chloride Level 107 # Carbon Dioxide Level 18 L Anion Gap 18 H Blood Urea Nitrogen 169 H Creatinine 4.26 H Est Glomerular Filtrat Rate mL/min 15 L Glucose Level 110 Calcium Level 7.6 L White Blood Count 11.4 H Red Blood Count 2.87 L Hemoglobin 7.8 L Hematocrit 28.2 L Mean Corpuscular Volume 98.3 Mean Corpuscular Hemoglobin 27.2 L Mean Corpuscular Hemoglobin Concent 27.7 L Red Cell Distribution Width 18.3 H Platelet Count 123 L Mean Platelet Volume Immature Granulocytes % 1.900 H Neutrophils % 86.7 H Lymphocytes % 4.7 L Monocytes % 5.9 Eosinophils % 0.3 Basophils % 0.5 Nucleated Red Blood Cells % 0.0 Immature Granulocytes # 0.220 H Neutrophils # 9.9 H Lymphocytes # 0.5 L Monocytes # 0.7 Eosinophils # 0.0 Basophils # 0.1 Nucleated Red Blood Cells # 0.0 Medications Medication Current Medications Norepinephrine 250 ml @ 1.875 mls/ hr TITRATE IV Last administered on 07/20/18at 08:36; Admin Dose 26.25 MLS/HR; Start 07/18/18 at 18:30 Bisacodyl (Dulcolax Supp) [address] Last administered on 07/20/18at 08:34; Admin Dose 10 MG; Start 07/19/18 at 09:00 Multivitamins Therapeutic (Theragran) 1 tab DAILY GTB Last administered on 07/20/18 08:34; Admin Dose 1 TAB; Start 07/19/18 at 09:00 Quetiapine Fumarate (Seroquel) 50 mg BID GTB Last administered on 07/20/18 08:34; Admin Dose 50 MG; Start 07/18/18 at 21:00 Zinc Sulfate (Zinc Sulfate) 220 mg DAILY GTB Last administered on 07/20/18 08:34; Admin Dose 220 MG; Start 07/19/18 at 09:00 IV Flush (NS 3 ml) 3 ml PER PROTOCOL IV ; Start 07/18/18 at 18:30 Ondansetron HCl (Zofran Inj) 4 mg Q6H PRN IV NAUSEA AND/OR VOMITING; Start 07/18/18 at 18:30 Albuterol (Proventil 0.083% (Neb)) 2.5 mg Q2H RESP THERAPY PRN NEB SHORTNESS OF BREATH Last administered on 07/20/18 03:25; Admin Dose 2.5 MG; Start 07/18/18 at 18:30 Ipratropium [place] (Atrovent 0.02% (Neb)) 0.5 mg Q2H RESP THERAPY PRN NEB SHORTNESS OF BREATH Last administered on 07/20/18 03:25; Admin Dose 0.5 MG; Start 07/18/18 at 18:30 Hydromorphone HCl (Dilaudid) 0.5 mg Q4H PRN IV PAIN LEVEL 7-10 Last administered on 07/20/18 11:02; Admin Dose 0.5 MG; Start 07/18/18 at 18:30 Heparin Sodium (Porcine) (Heparin (5000 Units/1ml)) 5,000 unit Q12 SC Last administered on 07/20/18 08:36; Admin Dose 5,000 UNIT; Start 07/18/18 at 21:00 Sodium Chloride 1,000 ml @ 125 mls/hr Q8H IV Last administered on 07/20/18 08:36; Admin Dose 125 MLS/HR; Start 07/18/18 at 19:00 Acetaminophen (Tylenol Liquid) 650 mg Q6H PRN GTB PAIN LEVEL 1-3 OR FEVER Last administered on 07/19/18 10:58; Admin Dose 650 MG; Start 07/19/18 at 10:30 Famotidine (Pepcid) 20 mg Q24H GTB Last administered on 07/19/18 21:20; Admin Dose 20 MG; Start 07/19/18 at 19:00 Acetaminophen/ Hydrocodone Bitart ([place] (5/325)) 1 tab Q6H PRN GTB PAIN LEVEL 4-6 Last administered on 07/20/18 01:18; Admin Dose 1 TAB; Start 07/19/18 at 12:30 Docusate Sodium (Colace Liquid Cup) 100 mg Q12 PRN GTB CONSTIPATION; Start 07/19/18 at 08:00 Docusate Sodium (Colace Liquid Cup) 100 mg QHS GTB Last administered on 07/19/18at 21:19; Admin Dose 100 MG; Start 07/19/18 at 21:00 Fluconazole/ Sodium Chloride 50 ml @ 50 mls/hr Q24H IVPB Last administered on 07/19/18at 15:12; Admin Dose 50 MLS/HR; Start 07/19/18 at 15:00 Linezolid 300 ml @ 300 mls/hr Q12 IVPB Last administered on 07/20/18at 08:37; Admin Dose 300 MLS/HR; Start 07/19/18 at 21:00 Meropenem/Sodium Chloride 50 ml @ 100 mls/hr Q12 IVPB Last administered on 07/20/18at 08:37; Admin Dose 100 MLS/HR; Start 07/19/18 at 14:00 IV Flush (NS 10 ml) 10 ml PRN PRN IV FLUSH LINE; Start 07/19/18 at 18:30 Levetiracetam (Keppra Liquid) 500 mg Q12 GTB ; Start 07/20/18 at 21:00 REGINALDO CHERY NP Jul 20, 2018 13:32
[2018-07-20] MEDS ORDERED: GENTAMICIN IV PER PHARMACY XX SCH (14:00)
[2018-07-20] MEDS: FLUCONAZOLE 100 MG/50 ML (PMX) 50 ML IVPB SCH (15:02)
[2018-07-20] MEDS: GENTAMICIN 180 MG in SOD CHLORIDE 0.9% 100 ML IVPB SCH (16:12)
[2018-07-20] MEDS: FAMOTIDINE 20 MG TAB GTB SCH (18:23)
[2018-07-20] MEDS: ACETAMINOPHEN 650MG/20.3ML CUP GTB PRN (21:59)
[2018-07-20] MEDS: LEVETIRACETAM (100 MG/ML) 5ML CUP GTB SCH (21:59)
[2018-07-20] MEDS: DOCUSATE SODIUM 10 MG/ML (10ML CUP) GTB SCH (21:59)
[2018-07-21] VITALS (83 sets, daily range): BP systolic 93–123; BP diastolic 53–75; PULSE 72–99; RESP 12–29
[2018-07-21] MEDS: HYDROCODONE/APAP (5/325) TAB GTB PRN ×3 (01:51→22:50)
[2018-07-21] MEDS: SOD CHLORIDE 0.9% 1,000 ML IV SCH ×2 (03:00→11:05)
[2018-07-21] MEDS: HYDROmorphONE 0.5 MG/0.5 ML SYG IV PRN ×5 (03:54→19:52)
[2018-07-21] MEDS: NORepinephrine 8MG/250 ML (PMX 250 ML IV SCH ×2 (04:55→17:52)
[2018-07-21] MEDS: LEVETIRACETAM (100 MG/ML) 5ML CUP GTB SCH ×2 (09:52→20:56)
--- NOTE | 2018-07-21 09:53 | PN ---
Date/Time of Note Date/Time of Note DATE: 07/21/18 TIME: 09:53 Assessment/Plan VTE Prophylaxis Risk score (from [facility])>0 risk: 10 [place] [facility] [place] SCD contraindicated: other Pharmacological prophylaxis: LMWH Lines/Catheters IV Catheter Type (from [facility]): PICC Line Central line still needed: Yes Assessment/Plan Hospital Course - Sepsis with shock injury to possible healthcare acquired pneumonia and UTI, continue IV fluids and broad-spectrum antibiotics monitor lactic acid, will f/up on cultures. Dr. Maciel is following in infection disease consultation. - Dehydration, continue IV fluids. - Acute on chronic renal failure, continue IV fluids. Continue to monitor BUN and creatinine. Dr. Barker is following in nephrology consultation. - Ventilator dependent respiratory failure, continue pulmonary toilet and bronchodilators. Dr Ames is following in pulmonology consultation. - Neurogenic bladder with suprapubic catheter. - Dysphagia with gastrostomy tube. - Multiple decubitus ulcers present on admission. Will obtain wound care consult. - Cervical spine injury with paraplegia. - Bipolar disorder with psychosis. - Hx of right nephrectomy - Hx of left renal nephrolithiasis, hx of lithotripsy with insertion and subsequent removal of ureteral JJ stent. Result Diagram: 07/20/18 0438 07/20/18 0431 Subjective 24 Hr Interval Summary Free Text/Dictation Eyes open, on vent via trach Exam/Review of Systems Exam Vitals Vital Signs Date Temp Pulse Resp B/P (MAP) Pulse Ox O2 O2 Flow FiO2 Time Delivery Rate 07/21/18 88 26 105/63 97 08:30 (77) 07/21/18 100.0 Trach 08:00 Collar 07/21/18 45 05:17 Intake and Output 07/20/18 07/20/18 07/21/18 1515:00 23:00 07:00 IntakeIntake Total 1938.75 ml 1982.00 ml 1476.25 ml OutputOutput Total 720 ml 685 ml 530 ml BalanceBalance 1218.75 ml 1297.00 ml 946.25 ml Constitutional: well developed Head: normocephalic, atraumatic Neck: supple Respiratory: diminished breath sounds Cardiovascular: regular rate and rhythm Gastrointestinal: soft, non-tender Extremities: normal pulses Medications Medication Current Medications Norepinephrine 250 ml @ 1.875 mls/ hr TITRATE IV Last administered on 07/21/18 04:55; Admin Dose 18.75 MLS/HR; Start 07/18/18 at 18:30 Bisacodyl (Dulcolax Supp) 10 mg DAILY [place] Last administered on 07/20/18 08:34; Admin Dose 10 MG; Start 07/19/18 at 09:00 Multivitamins Therapeutic (Theragran) 1 tab DAILY GTB Last administered on 07/20/18 08:34; Admin Dose 1 TAB; Start 07/19/18 at 09:00 Quetiapine Fumarate (Seroquel) 50 mg BID GTB Last administered on 07/20/18 21:59; Admin Dose 50 MG; Start 07/18/18 at 21:00 Zinc Sulfate (Zinc Sulfate) 220 mg DAILY GTB Last administered on 07/20/18 08:34; Admin Dose 220 MG; Start 07/19/18 at 09:00 IV Flush (NS 3 ml) 3 ml PER PROTOCOL IV ; Start 07/18/18 at 18:30 Ondansetron HCl (Zofran Inj) 4 mg Q6H PRN IV NAUSEA AND/OR VOMITING; Start 07/18/18 at 18:30 Albuterol (Proventil 0.083% (Neb)) 2.5 mg Q2H RESP THERAPY PRN NEB SHORTNESS OF BREATH Last administered on 07/20/18 23:05; Admin Dose 2.5 MG; Start 07/18/18 at 18:30 Ipratropium [place] (Atrovent 0.02% (Neb)) 0.5 mg Q2H RESP THERAPY PRN NEB SHORTNESS OF BREATH Last administered on 07/20/18 03:25; Admin Dose 0.5 MG; Start 07/18/18 at 18:30 Hydromorphone HCl (Dilaudid) 0.5 mg Q4H PRN IV PAIN LEVEL 7-10 Last administered on 07/21/18 07:58; Admin Dose 0.5 MG; Start 07/18/18 at 18:30 Heparin Sodium (Porcine) (Heparin (5000 Units/1ml)) 5,000 unit Q12 SC Last administered on 07/20/18 22:08; Admin Dose 5,000 UNIT; Start 07/18/18 at 21:00 Sodium Chloride 1,000 ml @ 125 mls/hr Q8H IV Last administered on 07/21/18 03:00; Admin Dose 125 MLS/HR; Start 07/18/18 at 19:00 Acetaminophen (Tylenol Liquid) 650 mg Q6H PRN GTB PAIN LEVEL 1-3 OR FEVER Last administered on 07/20/18 21:59; Admin Dose 650 MG; Start 07/19/18 at 10:30 Famotidine (Pepcid) 20 mg Q24H GTB Last administered on 07/20/18 18:23; Admin Dose 20 MG; Start 07/19/18 at 19:00 Acetaminophen/ Hydrocodone Bitart ([place] (5/325)) 1 tab Q6H PRN GTB PAIN LEVEL 4-6 Last administered on 07/21/18 01:51; Admin Dose 1 TAB; Start 07/19/18 at 1 2:30 Docusate Sodium (Colace Liquid Cup) 100 mg Q12 PRN GTB CONSTIPATION; Start 07/19/18 at 08:00 Docusate Sodium (Colace Liquid Cup) 100 mg QHS GTB Last administered on 07/20/18 21:59; Admin Dose 100 MG; Start 07/19/18 at 21:00 Fluconazole/ Sodium Chloride 50 ml @ 50 mls/hr Q24H IVPB Last administered on 07/20/18 15:02; Admin Dose 50 MLS/HR; Start 07/19/18 at 15:00 Linezolid 300 ml @ 300 mls/hr Q12 IVPB Last administered on 07/20/18 21:00; Admin Dose 300 MLS/HR; Start 07/19/18 at 21:00 IV Flush (NS 10 ml) 10 ml PRN PRN IV FLUSH LINE; Start 07/19/18 at 18:30 Levetiracetam (Keppra Liquid) 500 mg Q12 GTB Last administered on 07/20/18 21:59; Admin Dose 500 MG; Start 07/20/18 at 21:00 Gentamicin Sulfate (Gentamicin Iv Per Pharmacy) GENTAMICIN PER PHARMACY NOTE XX ; Start 07/20/18 at 14:00 Gentamicin Sulfate 180 mg/ Sodium Chloride 104.5 ml @ 104.5 mls/ hr Q72H IVPB Last administered on 07/20/18 16:12; Admin Dose 104.5 MLS/HR; Start 07/20/18 at 16:00 DANAY MUIR Jul 21, 2018 09:53
[2018-07-21] MEDS: QUETIAPINE 25 MG TAB GTB SCH ×2 (09:55→20:56)
[2018-07-21] MEDS: ZINC SULFATE 220 MG CAP GTB SCH (09:55)
[2018-07-21] MEDS: LINEZOLID 600 MG/300 ML (PMX) 300 ML IVPB SCH ×2 (09:55→21:04)
[2018-07-21] MEDS: MULTIVITAMINS THERAPEUTIC TAB GTB SCH (09:55)
[2018-07-21] MEDS: BISACODYL 10 MG SUPP PR SCH (09:55)
--- NOTE | 2018-07-21 09:55 | CONS ---
Assessment/Plan Assessment/Plan Assessment/Plan (Daily) 1. Acute Renal failure with severe Uremia, BUN trended down to 169today 2. Septic shock on Levophed due to PNA and UTI 3. PNA concerned about HCAP 4. UTI 5. 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 ventilator dependent respiratory failure with tracheostomy 7. dysphagia with G-tube 8. chronic kidney disease III 9. history of right nephrectomy 10. left renal nephrolithiasis 11. bipolar disorder Plan: BP still labile- on pressors IV abx for Septic shock, Renally dose all abx and monitor electrolytes continue IVF NS at 100 cc/hr IV albumin 25% 100ml Q 8 hr x 3 doses pt is currently severely dry, will continue IVF NS at 100 cc/ hr We will continue to follow up Critical care time spent is 30 minutes. Patient seen in collaboration with Dr Paul Barker. dw staff Consultation Date/Type/Reason Admit Date/Time Jul 18, 2018 at 13:59 Initial Consult Date 07/18/18 Type of Consult Nephrology Reason for Consultation Acute Renal failure with severe Uremia Requesting Provider: JOSÉ ANTONIO MIRZA MD Date/Time of Note DATE: 07/21/18 TIME: 09:54 24 HR Interval Summary Free Text/Dictation NAD afebrile remains on trach to vent hypotension; Norepinephrine at 18.7 ml/hr BUN trended dw staff Subjective hx not possible: pt non-verbal Constitutional: requiring IVF, requiring O2 Exam/Review of Systems Exam Vitals Vital Signs Date Temp Pulse Resp B/P (MAP) Pulse Ox O2 O2 Flow FiO2 Time Delivery Rate 07/21/18 88 26 105/63 97 08:30 (77) 07/21/18 100.0 Trach 08:00 Collar 07/21/18 45 05:17 Intake and Output 07/20/18 07/20/18 07/21/18 1515:00 23:00 07:00 IntakeIntake Total 1938.75 ml 1982.00 ml 1476.25 ml OutputOutput Total 720 ml 685 ml 530 ml BalanceBalance 1218.75 ml 1297.00 ml 946.25 ml Constitutional: alert, non-verbal, frail Psych: nl mood/affect Eyes: nl lids, nl sclera ENMT: nl external ears & nose Neck: other (trach intact) Respiratory: diminished breath sounds Cardiovascular: nl pulses, other (s1s2) Gastrointestinal: soft, other (gt intact) Musculoskeletal: nl extremities to inspection, muscle weakness Extremities: normal pulses Neurological: lethargic Skin: other (decubs) Results Result Diagram: 07/20/1843707/20/18430 Medications Medication Current Medications Norepinephrine 250 ml @ 1.875 mls/ hr TITRATE IV Last administered on 07/21/18 04:55; Admin Dose 18.75 MLS/HR; Start 07/18/18 at 18:30 Bisacodyl (Dulcolax Supp) 10 mg DAILY [place] Last administered on 07/20/18 08:34; Admin Dose 10 MG; Start 07/19/18 at 09:00 Multivitamins Therapeutic (Theragran) 1 tab DAILY GTB Last administered on 07/20/18 08:34; Admin Dose 1 TAB; Start 07/19/18 at 09:00 Quetiapine Fumarate (Seroquel) 50 mg BID GTB Last administered on 07/20/18 21:59; Admin Dose 50 MG; Start 07/18/18 at 21:00 Zinc Sulfate (Zinc Sulfate) 220 mg DAILY GTB Last administered on 07/20/18 08:34; Admin Dose 220 MG; Start 07/19/18 at 09:00 IV Flush (NS 3 ml) 3 ml PER PROTOCOL IV ; Start 07/18/18 at 18:30 Ondansetron HCl (Zofran Inj) 4 mg Q6H PRN IV NAUSEA AND/OR VOMITING; Start 07/18/18 at 18:30 Albuterol (Proventil 0.083% (Neb)) 2.5 mg Q2H RESP THERAPY PRN NEB SHORTNESS OF BREATH Last administered on 07/20/18 23:05; Admin Dose 2.5 MG; Start 07/18/18 at 18:30 Ipratropium [employer] (Atrovent 0.02% (Neb)) 0.5 mg Q2H RESP THERAPY PRN NEB SHORTNESS OF BREATH Last administered on 07/20/18 03:25; Admin Dose 0.5 MG; Start 07/18/18 at 18:30 Hydromorphone HCl (Dilaudid) 0.5 mg Q4H PRN IV PAIN LEVEL 7-10 Last admin istered on 07/21/18 07:58; Admin Dose 0.5 MG; Start 07/18/18 at 18:30 Heparin Sodium (Porcine) (Heparin (5000 Units/1ml)) 5,000 unit Q12 SC Last administered on 07/20/18 22:08; Admin Dose 5,000 UNIT; Start 07/18/18 at 21:00 Sodium Chloride 1,000 ml @ 125 mls/hr Q8H IV Last administered on 07/21/18 03:00; Admin Dose 125 MLS/HR; Start 07/18/18 at 19:00 Acetaminophen (Tylenol Liquid) 650 mg Q6H PRN GTB PAIN LEVEL 1-3 OR FEVER Last administered on 07/20/18 21:59; Admin Dose 650 MG; Start 07/19/18 at 10:30 Famotidine (Pepcid) 20 mg Q24H GTB Last administered on 07/20/18 18:23; Admin Dose 20 MG; Start 07/19/18 at 19:00 Acetaminophen/ Hydrocodone Bitart ([place] (5/325)) 1 tab Q6H PRN GTB PAIN LEVEL 4-6 Last administered on 07/21/18 01:51; Admin Dose 1 TAB; Start 07/19/18 at 12:30 Docusate Sodium (Colace Liquid Cup) 100 mg Q12 PRN GTB CONSTIPATION; Start 07/19/18 at 08:00 Docusate Sodium (Colace Liquid Cup) 100 mg QHS GTB Last administered on 07/20/18 21:59; Admin Dose 100 MG; Start 07/19/18 at 21:00 Fluconazole/ Sodium Chloride 50 ml @ 50 mls/hr Q24H IVPB Last administered on 07/20/18 15:02; Admin Dose 50 MLS/HR; Start 07/19/18 at 15:00 Linezolid 300 ml @ 300 mls/hr Q12 IVPB Last administered on 07/20/18 21:00; Admin Dose 300 MLS/HR; Start 07/19/18 at 21:00 IV Flush (NS 10 ml) 10 ml PRN PRN IV FLUSH LINE; Start 07/19/18 at 18:30 Levetiracetam (Keppra Liquid) 500 mg Q12 GTB Last administered on 07/20/18 21:59; Admin Dose 500 MG; Start 07/20/18 at 21:00 Gentamicin Sulfate (Gentamicin Iv Per Pharmacy) GENTAMICIN PER PHARMACY NOTE XX ; Start 07/20/18 at 14:00 Gentamicin Sulfate 180 mg/ Sodium Chloride 104.5 ml @ 104.5 mls/ hr Q72H IVPB Last administered on 07/20/18at 16:12; Admin Dose 104.5 MLS/HR; Start 07/20/18 at 16:00 NAE VELAZCO Jul 21, 2018 09:55
[2018-07-21] MEDS: HEPARIN 5,000 UNIT/1 ML VIAL SC SCH ×2 (10:29→20:59)
--- NOTE | 2018-07-21 12:46 | CONS ---
Assessment/Plan Assessment/Plan Hospital Course (Demo Recall) Patient remains on Levophed drip spiking fevers also now with diarrhea per report. T-max 100.3 T-current 100 Microbiology: Urine culture grew Acinetobacter susceptible to gentamicin tobramycin and Bactrim, blood cultures negative Allergies: Tetracyclines Antimicrobials: Zyvox, Gentamicin Diflucan Indwelling: Trach, PEG, PICC line, suprapubic catheter CT abdomen pelvis revealed bibasilar atelectasis and small effusions. Small ascites. Left hydroureter due to multiple small 2 mm stones in the course of the ureter cannot rule out pyelonephritis. Gastrostomy tube in the distended stomach. Allergies: Tetracyclines Physical examination: Chronically ill-appearing wasted middle-aged man who is awake in no distress. Head atraumatic normocephalic sclera nonicteric vehicle mucosa dry neck is supple tracheostomy present chest rise symmetrical breath sounds diminished the bases. Heart: S1-S2. Abdomen soft bowel sounds present. Extremities wasted contractured Assessment: 1. Severe sepsis with shock 2. Recurrent UTI/acute pyelonephritis 3. Acute on chronic respiratory failure 4. Acute on chronic kidney disease 5. Incomplete quadriplegia 6. Anemia and thrombocytopenia 7. History of left breast nephrectomy 8. Multiple chronic decubitus ulcers 9. Diarrhea, rule out C. difficile 10. MRSA colonization of the naris Plan: Remains on Levophed drip, will send stool for C. difficile, add empiric Flagyl, continue on current antibiotics, add Bactroban Consultation Date/Type/Reason Admit Date/Time Jul 18, 2018 at 13:59 Initial Consult Date 07/18/18 Type of Consult id Requesting Provider: JOSÉ ANTONIO MIRZA MD Date/Time of Note DATE: 07/21/18 TIME: 12:45 Exam/Review of Systems Exam Vitals Vital Signs Date Temp Pulse Resp B/P (MAP) Pulse Ox O2 O2 Flow FiO2 Time Delivery Rate 07/21/18 86 17 97 12:30 07/21/18 98.7 103/64 12:00 (77) 07/21/18 Trach 08:00 Collar 07/21/18 45 05:17 Intake and Output 07/20/18 07/20/18 07/21/18 1515:00 23:00 07:00 IntakeIntake Total 1938.75 ml 1982.00 ml 1476.25 ml OutputOutput Total 720 ml 685 ml 530 ml BalanceBalance 1218.75 ml 1297.00 ml 946.25 ml Results Result Diagram: 07/20/188 07/20/18430 Medications Medication Current Medications Norepinephrine 250 ml @ 1.875 mls/ hr TITRATE IV Last administered on 07/07 04:55; Admin Dose 18.75 MLS/HR; Start 07/18/18 at 18:30 Bisacodyl (Dulcolax Supp) 10 mg DAILY [place] Last administered on 07/21/18 09:55; Admin Dose 10 MG; Start 07/19/18 at 09:00 Multivitamins Therapeutic (Theragran) 1 tab DAILY GTB Last administered on 07/21/18 09:55; Admin Dose 1 TAB; Start 07/19/18 at 09:00 Quetiapine Fumarate (Seroquel) 50 mg BID GTB Last administered on 07/21/18 09: 55; Admin Dose 50 MG; Start 07/18/18 at 21:00 Zinc Sulfate (Zinc Sulfate) 220 mg DAILY GTB Last administered on 07/21/18 09:55; Admin Dose 220 MG; Start 07/19/18 at 09:00 IV Flush (NS 3 ml) 3 ml PER PROTOCOL IV ; Start 07/18/18 at 18:30 Ondansetron HCl (Zofran Inj) 4 mg Q6H PRN IV NAUSEA AND/OR VOMITING; Start 07/18/18 at 18:30 Albuterol (Proventil 0.083% (Neb)) 2.5 mg Q2H RESP THERAPY PRN NEB SHORTNESS OF BREATH Last administered on 07/20/18 23:05; Admin Dose 2.5 MG; Start 07/18/18 at 18:30 Ipratropium [place] (Atrovent 0.02% (Neb)) 0.5 mg Q2H RESP THERAPY PRN NEB SHORTNESS OF BREATH Last administered on 07/20/18 03:25; Admin Dose 0.5 MG; Start 07/18/18 at 18:30 Hydromorphone HCl (Dilaudid) 0.5 mg Q4H PRN IV PAIN LEVEL 7-10 Last administered on 07/21/18 11:01; Admin Dose 0.5 MG; Start 07/18/18 at 18:30 Heparin Sodium (Porcine) (Heparin (5000 Units/1ml)) 5,000 unit Q12 SC Last administered on 07/21/18 10:29; Admin Dose 5,000 UNIT; Start 07/18/18 at 21:00 Sodium Chloride 1,000 ml @ 125 mls/hr Q8H IV Last administered on 07/21/18 11:05; Admin Dose 125 MLS/HR; Start 07/18/18 at 19:00 Acetaminophen (Tylenol Liquid) 650 mg Q6H PRN GTB PAIN LEVEL 1-3 OR FEVER Last administered on 07/20/18 21:59; Admin Dose 650 MG; Start 07/19/18 at 10:30 Famotidine (Pepcid) 20 mg Q24H GTB Last administered on 07/20/18 18:23; Admin Dose 20 MG; Start 07/19/18 at 19:00 Acetaminophen/ Hydrocodone Bitart ([place] (5/325)) 1 tab Q6H PRN GTB PAIN LEVEL 4-6 Last administered on 07/21/18 01:51; Admin Dose 1 TAB; Start 07/19/18 at 12:30 Docusate Sodium (Colace Liquid Cup) 100 mg Q12 PRN GTB CONSTIPATION; Start 07/19/18 at 08:00 Docusate Sodium (Colace Liquid Cup) 100 mg QHS GTB Last administered on 07/20/18 21:59; Admin Dose 100 MG; Start 07/19/18 at 21:00 Fluconazole/ Sodium Chloride 50 ml @ 50 mls/hr Q24H IVPB Last administered on 07/20/18 15:02; Admin Dose 50 MLS/HR; Start 07/19/18 at 15:00 Linezolid 300 ml @ 300 mls/hr Q12 IVPB Last administered on 07/21/18 09:55; Admin Dose 300 MLS/HR; Start 07/19/18 at 21:00 IV Flush (NS 10 ml) 10 ml PRN PRN IV FLUSH LINE; Start 07/19/18 at 18:30 Levetiracetam (Keppra Liquid) 500 mg Q12 GTB Last administered on 07/21/18 09:52; Admin Dose 500 MG; Start 07/20/18 at 21:00 Gentamicin Sulfate (Gentamicin Iv Per Pharmacy) GENTAMICIN PER PHARMACY NOTE XX ; Start 07/20/18 at 14:00 Gentamicin Sulfate 180 mg/ Sodium Chloride 104.5 ml @ 104.5 mls/ hr Q72H IVPB Last administered on 07/20/18at 16:12; Admin Dose 104.5 MLS/HR; Start 07/20/18 at 16:00 REGINALDO CHERY NP Jul 21, 2018 12:46
--- NOTE | 2018-07-21 12:58 | PN ---
DATE: 07/21/2018 SUBJECTIVE: The patient is in ICU on the ventilator support. His blood pressure is being maintained with Levophed drip. He had a slight fever of 100 degrees earlier this morning. PHYSICAL EXAMINATION: VITAL SIGNS: Show blood pressure 105/63, pulse rate 88, respirations 26, pulse oximetry 97% saturati on. NECK: Tracheal secretions are minimal to moderate. No bleeding seen. HEART: Regular rhythm. CHEST: Breath sounds are heard but diminished in both the lower lung tierney. ABDOMEN: Soft. No distention seen, tolerating tube feedings. Bowel sounds are present. EXTREMITIES: Show paraplegia, no edema seen. LABORATORY DATA: No lab results are available today. The chest x-ray taken yesterday is reported to show small bilateral pleural effusions with bibasilar atelectasis. There is no need for thoracentesis as the pleural effusions are quite small. IMPRESSION: 1. Septic shock. 2. Chronic ventilator dependent respiratory failure. 3. Chronic kidney disease with acute kidney injury, gradually improving. 4. Chronic anemia. 5. History of nephrolithiasis, status post right nephrectomy. 6. 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 7. History of bipolar disorder. RECOMMENDATIONS: 1. Continue long-term ventilator support. 2. Continue inhalation therapy to clear the secretions and maintain pulmonary hygiene. 3. Continue antibiotics per infectious disease [employer] consultant's recommendations. 4. Continue hydration. 5. Continue tube feedings. Dictated By: HUMBERTO PEREZ MD SR/NTS Conf#: [id number] DID#: [id number]
[2018-07-21] MEDS: metroNIDAZOLE 500 MG TAB PO SCH ×2 (14:58→22:50)
[2018-07-21] MEDS: FLUCONAZOLE 100 MG/50 ML (PMX) 50 ML IVPB SCH (14:59)
[2018-07-21] MEDS: FAMOTIDINE 20 MG TAB GTB SCH (19:51)
[2018-07-21] MEDS: MUPIROCIN 2% 22 GM OINT TOP SCH (20:55)
[2018-07-21] MEDS: DOCUSATE SODIUM 10 MG/ML (10ML CUP) GTB SCH (21:00)
[2018-07-22] VITALS (95 sets, daily range): BP systolic 92–134; BP diastolic 48–80; PULSE 65–93; RESP 17–25
[2018-07-22] MEDS: HYDROmorphONE 0.5 MG/0.5 ML SYG IV PRN ×6 (01:24→23:04)
[2018-07-22] MEDS: metroNIDAZOLE 500 MG TAB PO SCH ×3 (05:35→21:55)
[2018-07-22] MEDS: BISACODYL 10 MG SUPP PR SCH (09:00)
[2018-07-22] MEDS: MUPIROCIN 2% 22 GM OINT TOP SCH ×2 (09:00→20:41)
[2018-07-22] MEDS: DAKINS 0.0125%(1/40) 473 ML SOLUTION TP SCH ×2 (09:00→20:40)
[2018-07-22] MEDS: COLLAGENASE 5 GM (UD JAR) TOP SCH ×2 (09:00→20:39)
[2018-07-22] MEDS: LEVETIRACETAM (100 MG/ML) 5ML CUP GTB SCH ×2 (09:25→20:39)
[2018-07-22] MEDS: MULTIVITAMINS THERAPEUTIC TAB GTB SCH (09:26)
[2018-07-22] MEDS: LINEZOLID 600 MG/300 ML (PMX) 300 ML IVPB SCH ×2 (09:26→23:31)
[2018-07-22] MEDS: ZINC SULFATE 220 MG CAP GTB SCH (09:26)
[2018-07-22] MEDS: BALSAM PERU/CASTOR OIL 60 GM TUBE TOP SCH ×2 (09:26→21:55)
[2018-07-22] MEDS: QUETIAPINE 25 MG TAB GTB SCH ×2 (09:26→20:39)
[2018-07-22] MEDS: HEPARIN 5,000 UNIT/1 ML VIAL SC SCH ×2 (09:50→20:43)
--- NOTE | 2018-07-22 10:26 | PN ---
DATE: 07/22/2018 SUBJECTIVE: The patient's general condition is same. He is in ICU on ventilator support. His breat aleksandra appears comfortable without any apparent respiratory distress. His BP is still being maintained on low dose Levophed at 2 mcg dosage. PHYSICAL EXAMINATION: VITAL SIGNS: Show blood pressure 104/57, pulse rate 70, respirations 21, pulse oximetry 99% saturati on, his temperature is 98.5 earlier. HEART: Regular sinus rhythm. CHEST: Breath sounds are heard bilaterally, diminished in both the lung tierney at the lower bases. ABDOMEN: Soft, no distention seen. He is taking G-tube feedings. Bowel sounds are present. EXTREMITIES: Show no edema. He is paraplegic. LABORATORY DATA: Show sodium 148, potassium 3.1, bicarbonate 19, BUN 114, creatinine 2.51. Both BUN and creatinine are progressively improving. The CBC shows WBC 4400, hemoglobin 7.2, hematocrit 23.8 , platelets decreased from 98,000. IMPRESSION: 1. Septic shock. 2. Chronic ventilator dependent respiratory failure. 3. Chronic kidney disease with acute kidney injury, gradually improving. 4. Chronic anemia. 5. History of nephrolithiasis, status post right nephrectomy. 6. 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 7. History of bipolar disorder. RECOMMENDATIONS: 1. Continue long-term ventilator support. 2. Continue antibiotics per infectious disease financial consultant's recommendations. He is on Diflucan, gen tamicin and Zyvox. 3. Continue inhalation therapy to clear the secretions and maintain pulmonary hygiene. 4. Continue hydration. 5. Continue tube feedings. Dictated By: HUMBERTO PEREZ MD SR/NTS Conf#: [id number] DID#: [id number] CC: JOSÉ ANTONIO MIRZA MD;*EndCC*
--- NOTE | 2018-07-22 10:31 | PN ---
Date/Time of Note Date/Time of Note DATE: 07/22/18 TIME: 10:30 Assessment/Plan VTE Prophylaxis Risk score (from [facility] [place])>0 risk: 9 SCD applied (from [facility] [place]): No SCD contraindicated: other Pharmacological prophylaxis: LMWH Lines/Catheters IV Catheter Type (from [facility]): PICC Line Central line still needed: Yes Assessment/Plan Hospital Course - Sepsis with shock injury to possible healthcare acquired pneumonia and UTI, continue IV fluids and broad-spectrum antibiotics monitor lactic acid, will f/up on cultures. Dr. Maciel is following in infection disease consultation. - Dehydration, continue IV fluids. - Acute on chronic renal failure, continue IV fluids. Continue to monitor BUN and creatinine. Dr. Barker is following in nephrology consultation. - Ventilator dependent respiratory failure, continue pulmonary toilet and bronchodilators. Dr Ames is following in pulmonology consultation. - Neurogenic bladder with suprapubic catheter. - Dysphagia with gastrostomy tube. - Multiple decubitus ulcers present on admission. Will obtain wound care consult. - Cervical spine injury with paraplegia. - Bipolar disorder with psychosis. - Hx of right nephrectomy - Hx of left renal nephrolithiasis, hx of lithotripsy with insertion and subsequent removal of ureteral JJ stent. Result Diagram: 07/22/18 0355 07/22/18 0355 Results 24hrs Laboratory Tests Test 07/22/18 03:55 White Blood Count 4.4 #L Red Blood Count 2.60 L Hemoglobin 7.2 L Hematocrit 25.8 L Mean Corpuscular Volume 99.2 Mean Corpuscular Hemoglobin 27.7 L Mean Corpuscular Hemoglobin Concent 27.9 L Red Cell Distribution Width 18.5 H Platelet Count 98 #L Mean Platelet Volume Immature Granulocytes % 0.900 H Neutrophils % 76.2 Lymphocytes % 10.3 L Monocytes % 8.3 Eosinophils % 4.1 Basophils % 0.2 Nucleated Red Blood Cells % 0.0 Immature Granulocytes # 0.040 H Neutrophils # 3.3 Lymphocytes # 0.5 L Monocytes # 0.4 Eosinophils # 0.2 Basophils # 0.0 Nucleated Red Blood Cells # 0.0 Sodium Level 148 H Potassium Level 3.1 L Chloride Level 118 H Carbon Dioxide Level 19 L Anion Gap 11 # Blood Urea Nitrogen 114 #H Creatinine 2.51 #H Est Glomerular Filtrat Rate mL/min 28 L Glucose Level 99 Calcium Level 7.6 L Subjective 24 Hr Interval Summary Free Text/Dictation Patient responds to voice, on vent via trach Exam/Review of Systems Exam Vitals Vital Signs Date Temp Pulse Resp B/P (MAP) Pulse Ox O2 O2 Flow FiO2 Time Delivery Rate 07/22/18 74 08:00 07/22/18 21 104/57 99 06:15 (73) 07/22/18 Mechanical 05:30 Ventilator 07/22/18 45 05:07 07/22/18 98.2 04:00 Intake and Output 07/21/18 07/21/18 07/22/18 1515:00 23:00 07:00 IntakeIntake Total 2191.250 ml 1139.250 ml 562 ml OutputOutput Total 780 ml 825 ml 580 ml BalanceBalance 1411.250 ml 314.250 ml -18 ml Constitutional: well developed Head: normocephalic, atraumatic Neck: supple Respiratory: diminished breath sounds Cardiovascular: regular rate and rhythm Gastrointestinal: soft, non-tender Extremities: normal pulses Results Results 24hrs Laboratory Tests Test 07/22/18 03:55 White Blood Count 4.4 #L Red Blood Count 2.60 L Hemoglobin 7.2 L Hematocrit 25.8 L Mean Corpuscular Volume 99.2 Mean Corpuscular Hemoglobin 27.7 L Mean Corpuscular Hemoglobin Concent 27.9 L Red Cell Distribution Width 18.5 H Platelet Count 98 #L Mean Platelet Volume Immature Granulocytes % 0.900 H Neutrophils % 76.2 Lymphocytes % 10.3 L Monocytes % 8.3 Eosinophils % 4.1 Basophils % 0.2 Nucleated Red Blood Cells % 0.0 Immature Granulocytes # 0.040 H Neutrophils # 3.3 Lymphocytes # 0.5 L Monocytes # 0.4 Eosinophils # 0.2 Basophils # 0.0 Nucleated Red Blood Cells # 0.0 Sodium Level 148 H Potassium Level 3.1 L Chloride Level 118 H Carbon Dioxide Level 19 L Anion Gap 11 # Blood Urea Nitrogen 114 #H Creatinine 2.51 #H Est Glomerular Filtrat Rate mL/min 28 L Glucose Level 99 Calcium Level 7.6 L Medications Medication Current Medications Norepinephrine 250 ml @ 1.875 mls/ hr TITRATE IV Last administered on 07/21/18at 17:52; Admin Dose 15 MLS/HR; Start 07/18/18 at 18:30 Bisacodyl (Dulcolax Supp) 10 mg DAILY [place] Last administered on 07/21/18 09:55; Admin Dose 10 MG; Start 07/19/18 at 09:00 Multivitamins Therapeutic (Theragran) 1 tab DAILY GTB Last administered on 07/22/18 09:26; Admin Dose 1 TAB; Start 07/19/18 at 09:00 Quetiapine Fumarate (Seroquel) 50 mg BID GTB Last administered on 07/22/18 09:26; Admin Dose 50 MG; Start 07/18/18 at 21:00 Zinc Sulfate (Zinc Sulfate) 220 mg DAILY GTB Last administered on 07/22/18 09:26; Admin Dose 220 MG; Start 07/19/18 at 09:00 IV Flush (NS 3 ml) 3 ml PER PROTOCOL IV ; Start 07/18/18 at 18:30 Ondansetron HCl (Zofran Inj) 4 mg Q6H PRN IV NAUSEA AND/OR VOMITING; Start 07/18/18 at 18:30 Albuterol (Proventil 0.083% (Neb)) 2.5 mg Q2H RESP THERAPY PRN NEB SHORTNESS OF BREATH Last administered on 07/20/18 23:05; Admin Dose 2.5 MG; Start 07/18/18 at 18:30 Ipratropium [place] (Atrovent 0.02% (Neb)) 0.5 mg Q2H RESP THERAPY PRN NEB SHORTNESS OF BREATH Last administered on 07/20/18 03:25; Admin Dose 0.5 MG; Start 07/18/18 at 18:30 Hydromorphone HCl (Dilaudid) 0.5 mg Q4H PRN IV PAIN LEVEL 7-10 Last administered on 07/22/18 09:25; Admin Dose 0.5 MG; Start 07/18/18 at 18:30 Heparin Sodium (Porcine) (Heparin (5000 Units/1ml)) 5,000 unit Q12 SC Last administered on 07/22/18 09:50; Admin Dose 5,000 UNIT; Start 07/18/18 at 21:00 Acetaminophen (Tylenol Liquid) 650 mg Q6H PRN GTB PAIN LEVEL 1-3 OR FEVER Last administered on 07/20/18 21:59; Admin Dose 650 MG; Start 07/19/18 at 10:30 Famotidine (Pepcid) 20 mg Q24H GTB Last administered on 07/21/18 19:51; Admin Dose 20 MG; Start 07/19/18 at 19:00 Acetaminophen/ Hydrocodone Bitart ([place] (5/325)) 1 tab Q6H PRN GTB PAIN LEVEL 4-6 Last administered on 07/21/18 22:50; Admin Dose 1 TAB; Start 07/19/18 at 12:30 Docusate Sodium (Colace Liquid Cup) 100 mg Q12 PRN GTB CONSTIPATION; Start 07/19/18 at 08:00 Docusate Sodium (Colace Liquid Cup) 100 mg QHS GTB Last administered on 07/20/18 21:59; Admin Dose 100 MG; Start 07/19/18 at 21:00 Fluconazole/ Sodium Chloride 50 ml @ 50 mls/hr Q24H IVPB Last administered on 07/21/18 14:59; Admin Dose 50 MLS/HR; Start 07/19/18 at 15:00 Linezolid 300 ml @ 300 mls/hr Q12 IVPB Last administered on 07/22/18 09:26; Admin Dose 300 MLS/HR; Start 07/19/18 at 21:00 IV Flush (NS 10 ml) 10 ml PRN PRN IV FLUSH LINE; Start 07/19/18 at 18:30 Levetiracetam (Keppra Liquid) 500 mg Q12 GTB Last administered on 07/22/18 09:25; Admin Dose 500 MG; Start 07/20/18 at 21:00 Gentamicin Sulfate (Gentamicin Iv Per Pharmacy) GENTAMICIN PER PHARMACY NOTE XX ; Start 07/20/18 at 14:00 Gentamicin Sulfate 180 mg/ Sodium Chloride 104.5 ml @ 104.5 mls/ hr Q72H IVPB Last administered on 07/20/18 16:12; Admin Dose 104.5 MLS/HR; Start 07/20/18 at 16:00 Mupirocin (Bactroban) 1 applic BID TOP Last administered on 07/21/18 20:55; Admin Dose 1 APPLIC; Start 07/21/18 at 21:00 Metronidazole (Flagyl) 500 mg Q8 PO Last administered on 07/22/18 05:35; Admin Dose 500 MG; Start 07/21/18 at 14:00 Sodium Hypochlorite (Dakins Diluted (/40)) 1 applic BID TP ; Start 07/22/18 at 09:00 Collagenase (Santyl) 1 applic BID TOP ; Start 07/22/18 at 09:00 DANAY MUIR Jul 22, 2018 10:31
--- NOTE | 2018-07-22 12:51 | CONS ---
Assessment/Plan Assessment/Plan Hospital Course (Demo Recall) No acute events patient is awake feels good still on low-dose of Levophed no fevers overnight WBC 4.4 platelets 98 neutrophils 76.2 BUN 114 creatinine 2.51 Microbiology: Urine culture grew Acinetobacter susceptible to gentamicin tobramycin and Bactrim, blood cultures negative Allergies: Tetracyclines Antimicrobials: Zyvox, Gentamicin Diflucan, Flagyl Indwelling: Trach, PEG, PICC line, suprapubic catheter CT abdomen pelvis revealed bibasilar atelectasis and small effusions. Small asc ites. Left hydroureter due to multiple small 2 mm stones in the course of the ureter cannot rule out pyelonephritis. Gastrostomy tube in the distended stomach. Allergies: Tetracyclines Physical examination: Chronically ill-appearing wasted middle-aged man who is awake in no distress. Head atraumatic normocephalic sclera nonicteric vehicle mucosa dry neck is supple tracheostomy present chest rise symmetrical breath sounds diminished the bases. Heart: S1-S2. Abdomen soft bowel sounds present. Extremities wasted contractured Assessment: 1. Severe sepsis with shock 2. Recurrent UTI/acute pyelonephritis 3. Acute on chronic respiratory failure 4. Acute on chronic kidney disease 5. Incomplete quadriplegia 6. Anemia and thrombocytopenia 7. History of left breast nephrectomy 8. Multiple chronic decubitus ulcers 9. Diarrhea, rule out C. difficile 10. MRSA colonization of the naris Plan: Clinically improving, although still on Levophed drip, continue on current antibiotics, pending stool for C. difficile Consultation Date/Type/Reason Admit Date/Time Jul 18, 2018 at 13:59 Initial Consult Date 07/18/18 Type of Consult id Requesting Provider: JOSÉ ANTONIO MIRZA MD Date/Time of Note DATE: 07/22/18 TIME: 12:50 Exam/Review of Systems Exam Vitals Vital Signs Date Temp Pulse Resp B/P (MAP) Pulse Ox O2 O2 Flow FiO2 Time Delivery Rate 07/22/18 77 21 108/64 98 11:30 (79) 07/22/18 98.7 Trach 08:00 Collar 07/22/18 45 05:07 Intake and Output 07/21/18 07/21/18 07/22/18 1515:00 23:00 07:00 IntakeIntake Total 2191.250 ml 1139.250 ml 562 ml OutputOutput Total 780 ml 825 ml 580 ml BalanceBalance 1411.250 ml 314.250 ml -18 ml Results Result Diagram: 07/22/18 0355 07/22/18 0355 Results 24hrs Laboratory Tests Test 07/22/18 03:55 White Blood Count 4.4 #L Red Blood Count 2.60 L Hemoglobin 7.2 L Hematocrit 25.8 L Mean Corpuscular Volume 99.2 Mean Corpuscular Hemoglobin 27.7 L Mean Corpuscular Hemoglobin Concent 27.9 L Red Cell Distribution Width 18.5 H Platelet Count 98 #L Mean Platelet Volume Immature Granulocytes % 0.900 H Neutrophils % 76.2 Lymphocytes % 10.3 L Monocytes % 8.3 Eosinophils % 4.1 Basophils % 0.2 Nucleated Red Blood Cells % 0.0 Immature Granulocytes # 0.040 H Neutrophils # 3.3 Lymphocytes # 0.5 L Monocytes # 0.4 Eosinophils # 0.2 Basophils # 0.0 Nucleated Red Blood Cells # 0.0 Sodium Level 148 H Potassium Level 3.1 L Chloride Level 118 H Carbon Dioxide Level 19 L Anion Gap 11 # Blood Urea Nitrogen 114 #H Creatinine 2.51 #H Est Glomerular Filtrat Rate mL/min 28 L Glucose Level 99 Calcium Level 7.6 L Medications Medication Current Medications Norepinephrine 250 ml @ 1.875 mls/ hr TITRATE IV Last administered on 07/21/18at 17:52; Admin Dose 15 MLS/HR; Start 07/18/18 at 18:30 Bisacodyl (Dulcolax Supp) 10 mg DAILY [place] Last administered on 07/21/18at 09:55; Admin Dose 10 MG; Start 07/19/18 at 09:00 Multivitamins Therapeutic (Theragran) 1 tab DAILY GTB Last administered on 07/22/18 09:26; Admin Dose 1 TAB; Start 07/19/18 at 09:00 Quetiapine Fumarate (Seroquel) 50 mg BID GTB Last administered on 07/22/18 09:26; Admin Dose 50 MG; Start 07/18/18 at 21:00 Zinc Sulfate (Zinc Sulfate) 220 mg DAILY GTB Last administered on 07/22/18 09:26; Admin Dose 220 MG; Start 07/19/18 at 09:00 IV Flush (NS 3 ml) 3 ml PER PROTOCOL IV ; Start 07/18/18 at 18:30 Ondansetron HCl (Zofran Inj) 4 mg Q6H PRN IV NAUSEA AND/OR VOMITING; Start 07/18/18 at 18:30 Albuterol (Proventil 0.083% (Neb)) 2.5 mg Q2H RESP THERAPY PRN NEB SHORTNESS OF BREATH Last administered on 07/20/18 23:05; Admin Dose 2.5 MG; Start 07/18/18 at 18:30 Ipratropium [place] (Atrovent 0.02% (Neb)) 0.5 mg Q2H RESP THERAPY PRN NEB SHORTNESS OF BREATH Last administered on 07/20/18 03:25; Admin Dose 0.5 MG; Start 07/18/18 at 18:30 Hydromorphone HCl (Dilaudid) 0.5 mg Q4H PRN IV PAIN LEVEL 7-10 Last administered on 07/22/18 12:30; Admin Dose 0.5 MG; Start 07/18/18 at 18:30 Heparin Sodium (Porcine) (Heparin (5000 Units/1ml)) 5,000 unit Q12 SC Last administered on 07/22/18 09:50; Admin Dose 5,000 UNIT; Start 07/18/18 at 21:00 Acetaminophen (Tylenol Liquid) 650 mg Q6H PRN GTB PAIN LEVEL 1-3 OR FEVER Last administered on 07/20/18 21:59; Admin Dose 650 MG; Start 07/19/18 at 10:30 Famotidine (Pepcid) 20 mg Q24H GTB Last administered on 07/21/18 19:51; Admin Dose 20 MG; Start 07/19/18 at 19:00 Acetaminophen/ Hydrocodone Bitart ([place] (5/325)) 1 tab Q6H PRN GTB PAIN LEVEL 4-6 Last administered on 07/21/18 22:50; Admin Dose 1 TAB; Start 07/19/18 at 12:30 Docusate Sodium (Colace Liquid Cup) 100 mg Q12 PRN GTB CONSTIPATION; Start 07/19/18 at 08:00 Docusate Sodium (Colace Liquid Cup) 100 mg QHS GTB Last administered on 07/20/18 21:59; Admin Dose 100 MG; Start 07/19/18 at 21:00 Fluconazole/ Sodium Chloride 50 ml @ 50 mls/hr Q24H IVPB Last administered on 07/21/18 14:59; Admin Dose 50 MLS/HR; Start 07/19/18 at 15:00 Linezolid 300 ml @ 300 mls/hr Q12 IVPB Last administered on 07/22/18 09:26; Admin Dose 300 MLS/HR; Start 07/19/18 at 21:00 IV Flush (NS 10 ml) 10 ml PRN PRN IV FLUSH LINE; Start 07/19/18 at 18:30 Levetiracetam (Keppra Liquid) 500 mg Q12 GTB Last administered on 07/22/18 09:25; Admin Dose 500 MG; Start 07/20/18 at 21:00 Gentamicin Sulfate (Gentamicin Iv Per Pharmacy) GENTAMICIN PER PHARMACY NOTE XX ; Start 07/20/18 at 14:00 Gentamicin Sulfate 180 mg/ Sodium Chloride 104.5 ml @ 104.5 mls/ hr Q72H IVPB Last administered on 07/20/18 16:12; Admin Dose 104.5 MLS/HR; Start 07/20/18 at 16:00 Mupirocin (Bactroban) 1 applic BID TOP Last administered on 07/21/18at 20:55; Admin Dose 1 APPLIC; Start 07/21/18 at 21:00 Metronidazole (Flagyl) 500 mg Q8 PO Last administered on 07/22/18at 05:35; Admin Dose 500 MG; Start 07/21/18 at 14:00 Sodium Hypochlorite (Dakins Diluted (1/40)) 1 applic BID TP ; Start 07/22/18 at 09:00 Collagenase (Santyl) 1 applic BID TOP ; Start 07/22/18 at 09:00 REGINALDO CHERY NP Jul 22, 2018 12:51
--- NOTE | 2018-07-22 15:23 | CONS ---
Assessment/Plan Assessment/Plan Assessment/Plan (Daily) 1. Acute Renal failure with severe Uremia, BUN trended down to 114 today 2. Septic shock on Levophed due to PNA and UTI 3. PNA concerned about HCAP 4. UTI 5. 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 ventilator dependent respiratory failure with tracheostomy 7. dysphagia with G-tube 8. chronic kidney disease III 9. history of right nephrectomy 10. left renal nephrolithiasis 11. bipolar disorder Plan: BP still labile- on pressors IV abx for Septic shock, Renally dose all abx and monitor electrolytes continue IVF NS at 100 cc/hr IV albumin 25% 100ml Q 8 hr x 3 doses pt is currently severely dry, will continue IVF NS at 100 cc/ hr We will continue to follow up Critical care time spent is 30 minutes.Patient seen in collaboration with Dr Paul Barker. dw staff Consultation Date/Type/Reason Admit Date/Time Jul 18, 2018 at 13:59 Initial Consult Date 07/18/18 Type of Consult Nephrology Reason for Consultation Severe Uremia Requesting Provider: JOSÉ ANTONIO MIRZA MD Date/Time of Note DATE: 07/22/18 TIME: 15:23 24 HR Interval Summary Free Text/Dictation No events last night dw staff Subjective hx not possible: pt non-verbal, pt critical status Constitutional: requiring IVF, requiring O2 Exam/Review of Systems Exam Vitals Vital Signs Date Temp Pulse Resp B/P (MAP) Pulse Ox O2 O2 Flow FiO2 Time Delivery Rate 07/22/18 74 20 99 45 13:50 07/22/18 108/64 11:30 (79) 07/22/18 98.7 Trach 08:00 Collar Intake and Output 07/21/18 07/21/18 07/22/18 1515:00 23:00 07:00 IntakeIntake Total 2191.250 ml 1139.250 ml 562 ml OutputOutput Total 780 ml 825 ml 580 ml BalanceBalance 1411.250 ml 314.250 ml -18 ml Constitutional: non-verbal, frail Psych: nl mood/affect Eyes: nl lids ENMT: nl external ears & nose Neck: other (trach intact) Respiratory: clear to auscultation Cardiovascular: nl pulses, other (s1s2) Gastrointestinal: soft, tender (gt intact), other (g) Musculoskeletal: muscle weakness, range of motion Extremities: normal pulses Neurological: confused Results Result Diagram: 07/22/18 0355 07/22/18 0355 Results 24hrs Laboratory Tests Test 07/22/18 03:55 White Blood Count 4.4 #L Red Blood Count 2.60 L Hemoglobin 7.2 L Hematocrit 25.8 L Mean Corpuscular Volume 99.2 Mean Corpuscular Hemoglobin 27.7 L Mean Corpuscular Hemoglobin Concent 27.9 L Red Cell Distribution Width 18.5 H Platelet Count 98 #L Mean Platelet Volume Immature Granulocytes % 0.900 H Neutrophils % 76.2 Lymphocytes % 10.3 L Monocytes % 8.3 Eosinophils % 4.1 Basophils % 0.2 Nucleated Red Blood Cells % 0.0 Immature Granulocytes # 0.040 H Neutrophils # 3.3 Lymphocytes # 0.5 L Monocytes # 0.4 Eosinophils # 0.2 Basophils # 0.0 Nucleated Red Blood Cells # 0.0 Sodium Level 148 H Potassium Level 3.1 L Chloride Level 118 H Carbon Dioxide Level 19 L Anion Gap 11 # Blood Urea Nitrogen 114 #H Creatinine 2.51 #H Est Glomerular Filtrat Rate mL/min 28 L Glucose Level 99 Calcium Level 7.6 L Medications Medication Current Medications Norepinephrine 250 ml @ 1.875 mls/ hr TITRATE IV Last administered on 07/21/18at 17:52; Admin Dose 15 MLS/HR; Start 07/18/18 at 18:30 Bisacodyl (Dulcolax Supp) 10 mg DAILY [place] Last administered on 07/22/18at 09:00; Admin Dose 10 MG; Start 07/19/18 at 09:00 Multivitamins Therapeutic (Theragran) 1 tab DAILY GTB Last administered on 07/22/18at 09:26; Admin Dose 1 TAB; Start 07/19/18 at 09:00 Quetiapine Fumarate (Seroquel) 50 mg BID GTB Last administered on 07/22/18 09:26; Admin Dose 50 MG; Start 07/18/18 at 21:00 Zinc Sulfate (Zinc Sulfate) 220 mg DAILY GTB Last administered on 07/22/18 09:26; Admin Dose 220 MG; Start 07/19/18 at 09:00 IV Flush (NS 3 ml) 3 ml PER PROTOCOL IV ; Start 07/18/18 at 18:30 Ondansetron HCl (Zofran Inj) 4 mg Q6H PRN IV NAUSEA AND/OR VOMITING; Start 07/18/18 at 18:30 Albuterol (Proventil 0.083% (Neb)) 2.5 mg Q2H RESP THERAPY PRN NEB SHORTNESS OF BREATH Last administered on 07/20/18 23:05; Admin Dose 2.5 MG; Start 07/18/18 at 18:30 Ipratropium [place] (Atrovent 0.02% (Neb)) 0.5 mg Q2H RESP THERAPY PRN NEB SHORTNESS OF BREATH Last administered on 07/20/18 03:25; Admin Dose 0.5 MG; Start 07/18/18 at 18:30 Hydromorphone HCl (Dilaudid) 0.5 mg Q4H PRN IV PAIN LEVEL 7-10 Last administered on 07/22/18 12:30; Admin Dose 0.5 MG; Start 07/18/18 at 18:30 Heparin Sodium (Porcine) (Heparin (5000 Units/1ml)) 5,000 unit Q12 SC Last administered on 07/22/18 09:50; Admin Dose 5,000 UNIT; Start 07/18/18 at 21:00 Acetaminophen (Tylenol Liquid) 650 mg Q6H PRN GTB PAIN LEVEL 1-3 OR FEVER Last administered on 07/20/18 21:59; Admin Dose 650 MG; Start 07/19/18 at 10:30 Famotidine (Pepcid) 20 mg Q24H GTB Last administered on 07/21/18 19:51; Admin Dose 20 MG; Start 07/19/18 at 19:00 Acetaminophen/ Hydrocodone Bitart ([place] (5/325)) 1 tab Q6H PRN GTB PAIN LEVEL 4-6 Last administered on 07/21/18 22:50; Admin Dose 1 TAB; Start 07/19/18 at 12:30 Docusate Sodium (Colace Liquid Cup) 100 mg Q12 PRN GTB CONSTIPATION; Start 07/19/18 at 08:00 Docusate Sodium (Colace Liquid Cup) 100 mg QHS GTB Last administered on 07/20/18 21:59; Admin Dose 100 MG; Start 07/19/18 at 21:00 Linezolid 300 ml @ 300 mls/hr Q12 IVPB Last administered on 07/22/18 09:26; Admin Dose 300 MLS/HR; Start 07/19/18 at 21:00 IV Flush (NS 10 ml) 10 ml PRN PRN IV FLUSH LINE; Start 07/19/18 at 18:30 Levetiracetam (Keppra Liquid) 500 mg Q12 GTB Last administered on 07/22/18at 09:25; Admin Dose 500 MG; Start 07/20/18 at 21:00 Gentamicin Sulfate (Gentamicin Iv Per Pharmacy) GENTAMICIN PER PHARMACY NOTE XX ; Start 07/20/18 at 14:00 Gentamicin Sulfate 180 mg/ Sodium Chloride 104.5 ml @ 104.5 mls/ hr Q72H IVPB Last administered on 07/20/18 16:12; Admin Dose 104.5 MLS/HR; Start 07/20/18 at 16:00 Mupirocin (Bactroban) 1 applic BID TOP Last administered on 07/22/18at 09:00; Admin Dose 1 APPLIC; Start 07/21/18 at 21:00 Metronidazole (Flagyl) 500 mg Q8 PO Last administered on 07/22/18at 05:35; Admin Dose 500 MG; Start 07/21/18 at 14:00 Sodium Hypochlorite (Dakins Diluted (/40)) 1 applic BID TP ; Start 07/22/18 at 09:00 Collagenase (Santyl) 1 applic BID TOP Last administered on 07/22/18at 09:00; Admin Dose 1 APPLIC; Start 07/22/18 at 09:00 NAE VELAZCO Jul 22, 2018 15:23
[2018-07-22] MEDS: FAMOTIDINE 20 MG TAB GTB SCH (19:58)
[2018-07-22] MEDS: DOCUSATE SODIUM 10 MG/ML (10ML CUP) GTB SCH (20:45)
[2018-07-23] VITALS (42 sets, daily range): BP systolic 81–120; BP diastolic 44–105; PULSE 73–110; RESP 17–30
[2018-07-23] MEDS: HYDROmorphONE 0.5 MG/0.5 ML SYG IV PRN ×4 (03:34→21:25)
[2018-07-23] MEDS: HYDROCODONE/APAP (5/325) TAB GTB PRN ×2 (04:34→11:57)
[2018-07-23] MEDS: metroNIDAZOLE 500 MG TAB PO SCH ×3 (05:33→21:26)
[2018-07-23] MEDS: ONDANSETRON 4 MG INJ IV PRN ×2 (07:51→21:38)
[2018-07-23] MEDS: BISACODYL 10 MG SUPP PR SCH (08:29)
[2018-07-23] MEDS: QUETIAPINE 25 MG TAB GTB SCH ×2 (08:46→21:26)
[2018-07-23] MEDS: ZINC SULFATE 220 MG CAP GTB SCH (08:46)
[2018-07-23] MEDS: LEVETIRACETAM (100 MG/ML) 5ML CUP GTB SCH ×2 (08:46→21:25)
[2018-07-23] MEDS: MULTIVITAMINS THERAPEUTIC TAB GTB SCH (08:46)
[2018-07-23] MEDS: LINEZOLID 600 MG/300 ML (PMX) 300 ML IVPB SCH ×2 (08:46→21:26)
[2018-07-23] MEDS: MUPIROCIN 2% 22 GM OINT TOP SCH ×2 (08:47→21:27)
[2018-07-23] MEDS: COLLAGENASE 5 GM (UD JAR) TOP SCH ×2 (08:47→21:26)
[2018-07-23] MEDS: BALSAM PERU/CASTOR OIL 60 GM TUBE TOP SCH ×2 (08:47→21:26)
[2018-07-23] MEDS: DAKINS 0.0125%(1/40) 473 ML SOLUTION TP SCH ×2 (08:48→21:27)
[2018-07-23] MEDS: HEPARIN 5,000 UNIT/1 ML VIAL SC SCH (08:50)
--- NOTE | 2018-07-23 10:46 | PN ---
DATE: 07/23/2018 SUBJECTIVE: The patient is in ICU on the ventilator support. PHYSICAL EXAMINATION: VITAL SIGNS: Stable. He has a temperature 99.3, blood pressure of 90/44, pulse rate of 100, respira tions 22, pulse oximetry 94% saturation. Earlier in the morning, he desaturated to 89%. He also had an episode of vomiting. The vomitus consisted mostly of tube feedings without any evidence of gross bleeding. NECK: Tracheal secretions are moderate and clear. No bleeding seen. HEART: Regular sinus rhythm. CHEST: Breath sounds are diminished bilaterally in the lower lung [place] with a few rales and rhonch i. ABDOMEN: Soft, no distention seen. EXTREMITIES: Show no edema. He is paraplegic. LABORATORY DATA: Show sodium 149, potassium 3.7, BUN 103, creatinine 2.19, glucose 90. BUN and crea tinine have been progressively decreasing. The CBC shows a WBC 5300, hemoglobin 7.5, hematocrit 27.8 , platelets are slightly better at 114,000. IMPRESSION: 1. Sepsis. 2. Chronic ventilator dependent respiratory failure. 3. Chronic kidney disease with acute kidney injury, probably due to dehydration, gradually improving . 4. Chronic anemia. 5. History of nephrolithiasis, status post right nephrectomy. 6. 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 7. History of bipolar disorder. RECOMMENDATIONS: 1. Continue long-term ventilator support. 2. As the patient had a large emesis, the present G-tube feeding may be too much for him. It is bet ter to reduce the G-tube feedings slightly and resume it later. Continue symptomatic therapy for vom iting with Zofran. 3. We will also obtain a chest x-ray. Possibility of aspiration pneumonia to be considered in view of large emesis, even though he has a tracheostomy tube with the cuff inflated being on ventilator. 4. Continue inhalation therapy to clear the secretions and maintain the pulmonary hygiene. 5. Continue hydration, increase gastrostomy tube water intake. 6. Continue supportive therapy. A chest x-ray has been ordered and further treatment will depend on chest x-ray findings. Meanwhile present antibiotic therapy with Zyvox, Flagyl and gentamicin as ordered by the infectious disease con [facility] will be continued. Discussed all of the above with the nursing staff. Dictated By: HUMBERTO PEREZ MD SR/NTS Conf#: [id number] [facility]#: [id number] CC: JOSÉ ANTONIO MIRZA MD;*[facility]*
--- NOTE | 2018-07-23 14:53 | CONS ---
Assessment/Plan Assessment/Plan Hospital Course (Demo Recall) Off pressors since last night looks comfortable. T-max 100.7. WBC 5.3 platelets 114 neutrophils 84.9 BUN 103 creatinine 2.19 Chest x-ray this morning revealed increased opacities in the upper right lung and lower right lung Microbiology: Urine culture grew Acinetobacter susceptible to gentamicin tobramycin and Bactrim, blood cultures negative Allergies: Tetracyclines Antimicrobials: Zyvox, Gentamicin Diflucan, Flagyl Indwelling: Trach, PEG, PICC line, suprapubic catheter CT abdomen pelvis revealed bibasilar atelectasis and small effusions. Small ascites. Left hydroureter due to multiple small 2 mm stones in the course of the ureter cannot rule out pyelonephritis. Gastrostomy tube in the distended stomach. Allergies: Tetracyclines Physical examination: Chronically ill-appearing wasted middle-aged man who is awake in no distress. Head atraumatic normocephalic sclera nonicteric vehicle mucosa dry neck is supple tracheostomy present chest rise symmetrical breath sounds diminished the bases. Heart: S1-S2. Abdomen soft bowel sounds present. Extremities wasted contractured Assessment: 1. Severe sepsis with shock 2. Recurrent UTI/acute pyelonephritis 3. Acute on chronic respiratory failure ?PNA 4. Acute on chronic kidney disease 5. Incomplete quadriplegia 6. Anemia and thrombocytopenia 7. History of left breast nephrectomy 8. Multiple chronic decubitus ulcers 9. Diarrhea, rule out C. difficile 10. MRSA colonization of the naris Plan: Stable off pressors, continue on current antibiotics, pending stool for C. difficile Consultation Date/Type/Reason Admit Date/Time Jul 18, 2018 at 13:59 Initial Consult Date 07/18/18 Type of Consult id Requesting Provider: JOSÉ ANTONIO MIRZA MD Date/Time of Note DATE: 07/23/18 TIME: 14:50 Exam/Review of Systems Exam Vitals Vital Signs Date Temp Pulse Resp B/P (MAP) Pulse Ox O2 O2 Flow FiO2 Time Delivery Rate 07/23/18 107 24 90/49 (63) 94 14:00 07/23/18 50 13:40 07/23/18 100.7 [place] 12:00 l Ventilato r Intake and Output 07/22/18 07/22/18 07/23/18 1515:00 23:00 07:00 IntakeIntake Total 310 ml 430 ml 700 ml OutputOutput Total 620 ml 560 ml 560 ml BalanceBalance -310 ml -130 ml 140 ml Results Result Diagram: 07/23/18 0512 07/23/18 0430 Results 24hrs Laboratory Tests Test 07/23/18 04:30 07/23/18 05:12 Sodium Level 149 H Potassium Level 3.7 Chloride Level 119 H Carbon Dioxide Level 21 Anion Gap 9 Blood Urea Nitrogen 103 H Creatinine 2.19 H Est Glomerular Filtrat Rate mL/min 33 L Glucose Level 90 Calcium Level 7.9 L White Blood Count 5.3 # Red Blood Count 2.72 L Hemoglobin 7.5 L Hematocrit 27.8 L Mean Corpuscular Volume 102.2 H Mean Corpuscular Hemoglobin 27.6 L Mean Corpuscular Hemoglobin Concent 27.0 L Red Cell Distribution Width 18.5 H Platelet Count 114 L Mean Platelet Volume Immature Granulocytes % 0.400 Neutrophils % 84.9 H Lymphocytes % 6.6 L Monocytes % 4.5 Eosinophils % 3.2 Basophils % 0.4 Nucleated Red Blood Cells % 0.0 Immature Granulocytes # 0.020 Neutrophils # 4.5 Lymphocytes # 0.4 L Monocytes # 0.2 L Eosinophils # 0.2 Basophils # 0.0 Nucleated Red Blood Cells # 0.0 Medications Medication Current Medications Norepinephrine 250 ml @ 1.875 mls/ hr TITRATE IV Last administered on 07/21/18at 17:52; Admin Dose 15 MLS/HR; Start 07/18/18 at 18:30 Bisacodyl (Dulcolax Supp) 10 mg DAILY [place] Last administered on 07/22/18at 09:00; Admin Dose 10 MG; Start 07/19/18 at 09:00 Multivitamins Therapeutic (Theragran) 1 tab DAILY GTB Last administered on 07/22/18 09:26; Admin Dose 1 TAB; Start 07/19/18 at 09:00 Quetiapine Fumarate (Seroquel) 50 mg BID GTB Last administered on 07/23/18at 08:46; Admin Dose 50 MG; Start 07/18/18 at 21:00 Zinc Sulfate (Zinc Sulfate) 220 mg DAILY GTB Last administered on 07/22/18 09:26; Admin Dose 220 MG; Start 07/19/18 at 09:00 IV Flush (NS 3 ml) 3 ml PER PROTOCOL IV ; Start 07/18/18 at 18:30 Ondansetron HCl (Zofran Inj) 4 mg Q6H PRN IV NAUSEA AND/OR VOMITING Last administered on 07/23/18 07:51; Admin Dose 4 MG; Start 07/18/18 at 18:30 Albuterol (Proventil 0.083% (Neb)) 2.5 mg Q2H RESP THERAPY PRN NEB SHORTNESS OF BREATH Last administered on 07/20/18 23:05; Admin Dose 2.5 MG; Start 07/18/18 at 18:30 Ipratropium [place] (Atrovent 0.02% (Neb)) 0.5 mg Q2H RESP THERAPY PRN NEB SHORTNESS OF BREATH Last administered on 07/20/18 03:25; Admin Dose 0.5 MG; Start 07/18/18 at 18:30 Hydromorphone HCl (Dilaudid) 0.5 mg Q4H PRN IV PAIN LEVEL 7-10 Last administered on 07/23/18 08:01; Admin Dose 0.5 MG; Start 07/18/18 at 18:30 Heparin Sodium (Porcine) (Heparin (5000 Units/1ml)) 5,000 unit Q12 SC Last administered on 07/23/18 08:50; Admin Dose 5,000 UNIT; Start 07/18/18 at 21:00 Acetaminophen (Tylenol Liquid) 650 mg Q6H PRN GTB PAIN LEVEL 1-3 OR FEVER Last administered on 07/20/18 21:59; Admin Dose 650 MG; Start 07/19/18 at 10:30 Famotidine (Pepcid) 20 mg Q24H GTB Last administered on 07/22/18 19:58; Admin Dose 20 MG; Start 07/19/18 at 19:00 Acetaminophen/ Hydrocodone Bitart ([place] (5/325)) 1 tab Q6H PRN GTB PAIN LEVEL 4-6 Last administered on 07/23/18 11:57; Admin Dose 1 TAB; Start 07/19/18 at 12:30 Docusate Sodium (Colace Liquid Cup) 100 mg Q12 PRN GTB CONSTIPATION; Start 07/19/18 at 08:00 Docusate Sodium (Colace Liquid Cup) 100 mg QHS GTB Last administered on 07/20/18 21:59; Admin Dose 100 MG; Start 07/19/18 at 21:00 Linezolid 300 ml @ 300 mls/hr Q12 IVPB Last administered on 07/23/18 08:46; Admin Dose 300 MLS/HR; Start 07/19/18 at 21:00 IV Flush (NS 10 ml) 10 ml PRN PRN IV FLUSH LINE; Start 07/19/18 at 18:30 Levetiracetam (Keppra Liquid) 500 mg Q12 GTB Last administered on 07/23/18 08:46; Admin Dose 500 MG; Start 07/20/18 at 21:00 Gentamicin Sulfate (Gentamicin Iv Per Pharmacy) GENTAMICIN PER PHARMACY NOTE XX ; Start 07/20/18 at 14:00 Gentamicin Sulfate 180 mg/ Sodium Chloride 104.5 ml @ 104.5 mls/ hr Q72H IVPB Last administered on 07/20/18 16:12; Admin Dose 104.5 MLS/HR; Start 07/20/18 at 16:00 Mupirocin (Bactroban) 1 applic BID TOP Last administered on 07/23/18 08:47; Admin Dose 1 APPLIC; Start 07/21/18 at 21:00 Metronidazole (Flagyl) 500 mg Q8 PO Last administered on 07/23/18 05:33; Admin Dose 500 MG; Start 07/21/18 at 14:00 Sodium Hypochlorite (Dakins Diluted (/40)) 1 applic BID TP Last administered on 07/23/18 08:48; Admin Dose 1 APPLIC; Start 07/22/18 at 09:00 Collagenase (Santyl) 1 applic BID TOP Last administered on 07/23/18 08:47; Admin Dose 1 APPLIC; Start 07/22/18 at 09:00 REGINALDO CHERY NP Jul 23, 2018 14:53
[2018-07-23] MEDS: GENTAMICIN 180 MG in SOD CHLORIDE 0.9% 100 ML IVPB SCH (15:05)
[2018-07-23] MEDS: FAMOTIDINE 20 MG TAB GTB SCH (16:58)
[2018-07-23] MEDS ORDERED: NORepinephrine 8MG/250 ML (PMX 250 ML IV SCH (17:30)
[2018-07-23] MEDS ORDERED: SOD CHLORIDE 0.9% 250 ML IV* ONE (18:16)
--- NOTE | 2018-07-23 18:16 | PN ---
Date/Time of Note Date/Time of Note DATE: 07/23/18 TIME: 17:25 Assessment/Plan VTE Prophylaxis Risk score (from Ns)>0 risk: 6 SCD applied (from Ns): Yes Pharmacological prophylaxis: NA/contraindicated, heparin Pharm contraindication: bleeding Lines/Catheters IV Catheter Type (from Nrs): PICC Line Central line still needed: Yes Reason Cath still needed: urinary retention Assessment/Plan Hospital Course Patient has a coffee-ground emesis, will stop heparin, KUB revealed ileus versus small bowel obstruction, will change Pepcid to IV, keep n.p.o., change IV fluids to D5W at 100 cc/h. Hemoglobin is 7.2, restart Epogen, transfuse 1 unit of packed red blood cells, GI consult. Assessment/Plan -Ileus versus small bowel obstruction. Dr. Borjas is asked to see patient in gastroenterology consultation. - Sepsis with shock injury to possible healthcare acquired pneumonia and UTI, continue abx per ID. Dr. Maciel is following in infection disease consultation. - Acute on chronic renal failure. Continue to monitor BUN and creatinine. Dr. Barker is following in nephrology consultation. - Ventilator dependent respiratory failure, continue pulmonary toilet and bronchodilators. Dr Ames is following in pulmonology consultation. - Neurogenic bladder with suprapubic catheter. - Dysphagia with gastrostomy tube. - Multiple decubitus ulcers present on admission. - Cervical spine injury with paraplegia. - Bipolar disorder with psychosis. - Hx of right nephrectomy - Hx of left renal nephrolithiasis, hx of lithotripsy with insertion and subsequent removal of ureteral JJ stent. Critical care time spent is 30 minutes. Further recommendations based on clinical course. Plan of care discussed with Dr. Barreto. Result Diagram: 07/23/18 1428 07/23/18 0430 Results 24hrs Laboratory Tests Test 07/23/18 04:30 07/23/18 05:12 07/23/18 14:28 Sodium Level 149 H Potassium Level 3.7 Chloride Level 119 H Carbon Dioxide Level 21 Anion Gap 9 Blood Urea Nitrogen 103 H Creatinine 2.19 H Est Glomerular Filtrat Rate mL/min 33 L Glucose Level 90 Calcium Level 7.9 L White Blood Count 5.3 # 7.9 # Red Blood Count 2.72 L 2.61 L Hemoglobin 7.5 L 7.2 L Hematocrit 27.8 L 26.4 L Mean Corpuscular Volume 102.2 H 101.1 H Mean Corpuscular Hemoglobin 27.6 L 27.6 L Mean Corpuscular Hemoglobin Concent 27.0 L 27.3 L Red Cell Distribution Width 18.5 H 18.7 H Platelet Count 114 L 101 L Mean Platelet Volume 14.7 H Immature Granulocytes % 0.400 1.300 H Neutrophils % 84.9 H 93.0 H Lymphocytes % 6.6 L 1.4 L Monocytes % 4.5 4.2 Eosinophils % 3.2 0.0 Basophils % 0.4 0.1 Nucleated Red Blood Cells % 0.0 0.0 Immature Granulocytes # 0.020 0.100 H Neutrophils # 4.5 7.3 Lymphocytes # 0.4 L 0.1 L Monocytes # 0.2 L 0.3 Eosinophils # 0.2 0.0 Basophils # 0.0 0.0 Nucleated Red Blood Cells # 0.0 0.0 Exam/Review of Systems Exam Vitals Vital Signs Date Temp Pulse Resp B/P (MAP) Pulse Ox O2 O2 Flow FiO2 Time Delivery Rate 07/23/18 104 20 92/49 (63) 98 17:00 07/23/18 100.7 [place] 16:00 l Ventilato r 07/23/18 50 15:55 Intake and Output 07/22/18 07/22/18 07/23/18 1515:00 23:00 07:00 IntakeIntake Total 310 ml 430 ml 750 ml OutputOutput Total 620 ml 560 ml 610 ml BalanceBalance -310 ml -130 ml 140 ml Exam Constitutional: alert, awake Neck: supple, other (Tracheostomy) Respiratory: diminished breath sounds, other (Scattered Rhonchi) Cardiovascular: regular rate and rhythm Gastrointestinal: soft, non-tender, other (G-tube) Genitourinary - Male: other (Suprapubic catheter) Extremities: normal pulses, other (Contracted) Neurological: other (Paraplegia) Skin: other (Multiple wounds) Results Results 24hrs Laboratory Tests Test 07/23/18 04:30 07/23/18 05:12 07/23/18 14:28 Sodium Level 149 H Potassium Level 3.7 Chloride Level 119 H Carbon Dioxide Level 21 Anion Gap 9 Blood Urea Nitrogen 103 H Creatinine 2.19 H Est Glomerular Filtrat Rate mL/min 33 L Glucose Level 90 Calcium Level 7.9 L White Blood Count 5.3 # 7.9 # Red Blood Count 2.72 L 2.61 L Hemoglobin 7.5 L 7.2 L Hematocrit 27.8 L 26.4 L Mean Corpuscular Volume 102.2 H 101.1 H Mean Corpuscular Hemoglobin 27.6 L 27.6 L Mean Corpuscular Hemoglobin Concent 27.0 L 27.3 L Red Cell Distribution Width 18.5 H 18.7 H Platelet Count 114 L 101 L Mean Platelet Volume 14.7 H Immature Granulocytes % 0.400 1.300 H Neutrophils % 84.9 H 93.0 H Lymphocytes % 6.6 L 1.4 L Monocytes % 4.5 4.2 Eosinophils % 3.2 0.0 Basophils % 0.4 0.1 Nucleated Red Blood Cells % 0.0 0.0 Immature Granulocytes # 0.020 0.100 H Neutrophils # 4.5 7.3 Lymphocytes # 0.4 L 0.1 L Monocytes # 0.2 L 0.3 Eosinophils # 0.2 0.0 Basophils # 0.0 0.0 Nucleated Red Blood Cells # 0.0 0.0 Medications Medication Current Medications Norepinephrine 250 ml @ 1.875 mls/ hr TITRATE IV Last administered on 07/21/18 17:52; Admin Dose 15 MLS/HR; Start 07/18/18 at 18:30 Bisacodyl (Dulcolax Supp) 10 mg DAILY MN Last administered on 07/22/18at 09:00; Admin Dose 10 MG; Start 07/19/18 at 09:00 Multivitamins Therapeutic (Theragran) 1 tab DAILY GTB Last administered on 07/22/18 09:26; Admin Dose 1 TAB; Start 07/19/18 at 09:00 Quetiapine Fumarate (Seroquel) 50 mg BID GTB Last administered on 07/23/18at 08:46; Admin Dose 50 MG; Start 07/18/18 at 21:00 Zinc Sulfate (Zinc Sulfate) 220 mg DAILY GTB Last administered on 07/22/18 09:26; Admin Dose 220 MG; Start 07/19/18 at 09:00 IV Flush (NS 3 ml) 3 ml PER PROTOCOL IV ; Start 07/18/18 at 18:30 Ondansetron HCl (Zofran Inj) 4 mg Q6H PRN IV NAUSEA AND/OR VOMITING Last administered on 07/23/18 07:51; Admin Dose 4 MG; Start 07/18/18 at 18:30 Albuterol (Proventil 0.083% (Neb)) 2.5 mg Q2H RESP THERAPY PRN NEB SHORTNESS OF BREATH Last administered on 07/20/18 23:05; Admin Dose 2.5 MG; Start 07/18/18 at 18:30 Ipratropium [place] (Atrovent 0.02% (Neb)) 0.5 mg Q2H RESP THERAPY PRN NEB SHORTNESS OF BREATH Last administered on 07/20/18 03:25; Admin Dose 0.5 MG; Start 07/18/18 at 18:30 Hydromorphone HCl (Dilaudid) 0.5 mg Q4H PRN IV PAIN LEVEL 7-10 Last administered on 07/23/18 15:04; Admin Dose 0.5 MG; Start 07/18/18 at 18:30 Acetaminophen (Tylenol Liquid) 650 mg Q6H PRN GTB PAIN LEVEL 1-3 OR FEVER Last administered on 07/20/18 21:59; Admin Dose 650 MG; Start 07/19/18 at 10:30 Acetaminophen/ Hydrocodone Bitart ([place] (5/325)) 1 tab Q6H PRN GTB PAIN LEVEL 4-6 Last administered on 07/23/18 11:57; Admin Dose 1 TAB; Start 07/19/18 at 12:30 Docusate Sodium (Colace Liquid Cup) 100 mg Q12 PRN GTB CONSTIPATION; Start 07/19/18 at 08:00 Docusate Sodium (Colace Liquid Cup) 100 mg QHS GTB Last administered on 07/20/18 21:59; Admin Dose 100 MG; Start 07/19/18 at 21:00 Linezolid 300 ml @ 300 mls/hr Q12 IVPB Last administered on 07/23/18 08:46; Admin Dose 300 MLS/HR; Start 07/19/18 at 21:00 IV Flush (NS 10 ml) 10 ml PRN PRN IV FLUSH LINE; Start 07/19/18 at 18:30 Levetiracetam (Keppra Liquid) 500 mg Q12 GTB Last administered on 6/17/19at 08:46; Admin Dose 500 MG; Start 07/20/18 at 21:00 Gentamicin Sulfate (Gentamicin Iv Per Pharmacy) GENTAMICIN PER PHARMACY NOTE XX ; Start 07/20/18 at 14:00 Gentamicin Sulfate 180 mg/ Sodium Chloride 104.5 ml @ 104.5 mls/ hr Q72H IVPB Last administered on 07/23/18at 15:05; Admin Dose 104.5 MLS/HR; Start 07/20/18 at 16:00 Mupirocin (Bactroban) 1 applic BID TOP Last administered on 07/23/18at 08:47; Admin Dose 1 APPLIC; Start 07/21/18 at 21:00 Metronidazole (Flagyl) 500 mg Q8 PO Last administered on 07/23/18at 05:33; Admin Dose 500 MG; Start 07/21/18 at 14:00 Sodium Hypochlorite (Dakins Diluted ()) 1 applic BID TP Last administered on 07/23/18at 08:48; Admin Dose 1 APPLIC; Start 07/22/18 at 09:00 Collagenase (Santyl) 1 applic BID TOP Last administered on 07/23/18at 08:47; Admin Dose 1 APPLIC; Start 07/22/18 at 09:00 Famotidine (Pepcid Iv) 20 mg BID IV ; Start 07/23/18 at 21:00; Status UNV Epoetin Prince-epbx (Retacrit (Non-Esrd)) 10,000 unit MoWeFr@1700 SC ; Start 07/25/18 at 17:00; Status UNV Dextrose 1,000 ml @ 100 mls/hr Q10H IV ; Start 07/23/18 at 17:30; Status UNV AISSATOU DUNCAN Jul 23, 2018 17:35
[2018-07-23] MEDS: DEXTROSE 5% 1,000 ML IV SCH (18:29)
[2018-07-23] MEDS: EPOETIN ALFA-EPBX (NON-ESRD 10,000 UNIT/ML VIAL SC SCH (19:43)
--- NOTE | 2018-07-23 20:32 | CONS ---
Assessment/Plan Assessment/Plan Assessment/Plan (Daily) 1. Acute Renal failure with severe Uremia, BUN trended down to 114 today 2. Septic shock on Levophed due to PNA and UTI 3. PNA concerned about HCAP 4. UTI 5. 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 ventilator dependent respiratory failure with tracheostomy 7. dysphagia with G-tube 8. chronic kidney disease III 9. history of right nephrectomy 10. left renal nephrolithiasis 11. bipolar disorder Plan: BP still labile- on pressors IV abx for Septic shock, Renally dose all abx and monitor electrolytes continue IVF NS at 100 cc/hr IV albumin 25% 100ml Q 8 hr x 3 doses pt is currently severely dry, will continue IVF NS at 100 cc/ hr We will continue to follow up Critical care time spent is 30 minutes.Patient seen in collaboration with Dr Paul Barker. dw staff Consultation Date/Type/Reason Admit Date/Time Jul 18, 2018 at 13:59 Initial Consult Date 07/18/18 Type of Consult Nephrology Reason for Consultation Severe Uremia Requesting Provider: JOSÉ ANTONIO MIRZA MD Date/Time of Note DATE: 07/23/18 TIME: 20:32 Exam/Review of Systems Exam Vitals Vital Signs Date Temp Pulse Resp B/P (MAP) Pulse Ox O2 O2 Flow FiO2 Time Delivery Rate 07/23/18 97 21 90/49 (63) 98 18:00 07/23/18 50 17:45 07/23/18 100.7 [place] 16:00 l Ventilato r Intake and Output 07/22/18 07/22/18 07/23/18 1515:00 23:00 07:00 IntakeIntake Total 310 ml 430 ml 750 ml OutputOutput Total 620 ml 560 ml 610 ml BalanceBalance -310 ml -130 ml 140 ml Constitutional: alert, non-verbal, frail Psych: nl mood/affect Eyes: nl lids ENMT: nl external ears & nose Neck: non-tender, other (trach intact) Respiratory: clear to auscultation Cardiovascular: nl pulses, other (s1s2) Gastrointestinal: other (gt intact) Musculoskeletal: muscle weakness, range of motion Extremities: normal pulses Neurological: confused Skin: other (decubs) Results Result Diagram: 07/23/18 1428 07/23/18 0430 Results 24hrs Laboratory Tests Test 07/23/18 04:30 07/23/18 05:12 07/23/18 14:28 Sodium Level 149 H Potassium Level 3.7 Chloride Level 119 H Carbon Dioxide Level 21 Anion Gap 9 Blood Urea Nitrogen 103 H Creatinine 2.19 H Est Glomerular Filtrat Rate mL/min 33 L Glucose Level 90 Calcium Level 7.9 L White Blood Count 5.3 # 7.9 # Red Blood Count 2.72 L 2.61 L Hemoglobin 7.5 L 7.2 L Hematocrit 27.8 L 26.4 L Mean Corpuscular Volume 102.2 H 101.1 H Mean Corpuscular Hemoglobin 27.6 L 27.6 L Mean Corpuscular Hemoglobin Concent 27.0 L 27.3 L Red Cell Distribution Width 18.5 H 18.7 H Platelet Count 114 L 101 L Mean Platelet Volume 14.7 H Immature Granulocytes % 0.400 1.300 H Neutrophils % 84.9 H 93.0 H Lymphocytes % 6.6 L 1.4 L Monocytes % 4.5 4.2 Eosinophils % 3.2 0.0 Basophils % 0.4 0.1 Nucleated Red Blood Cells % 0.0 0.0 Immature Granulocytes # 0.020 0.100 H Neutrophils # 4.5 7.3 Lymphocytes # 0.4 L 0.1 L Monocytes # 0.2 L 0.3 Eosinophils # 0.2 0.0 Basophils # 0.0 0.0 Nucleated Red Blood Cells # 0.0 0.0 Medications Medication Current Medications Bisacodyl (Dulcolax Supp) 10 mg DAILY NM Last administered on 07/22/18at 09:00; Admin Dose 10 MG; Start 07/19/18 at 09:00 Multivitamins Therapeutic (Theragran) 1 tab DAILY GTB Last administered on 07/22/18at 09:26; Admin Dose 1 TAB; Start 07/19/18 at 09:00 Quetiapine Fumarate (Seroquel) 50 mg BID GTB Last administered on 07/23/18at 08:46; Admin Dose 50 MG; Start 07/18/18 at 21:00 Zinc Sulfate (Zinc Sulfate) 220 mg DAILY GTB Last administered on 07/22/18at 09:26; Admin Dose 220 MG; Start 07/19/18 at 09:00 IV Flush (NS 3 ml) 3 ml PER PROTOCOL IV ; Start 07/18/18 at 18:30 Ondansetron HCl (Zofran Inj) 4 mg Q6H PRN IV NAUSEA AND/OR VOMITING Last administered on 07/23/18 07:51; Admin Dose 4 MG; Start 07/18/18 at 18:30 Albuterol (Proventil 0.083% (Neb)) 2.5 mg Q2H RESP THERAPY PRN NEB SHORTNESS OF BREATH Last administered on 07/20/18 23:05; Admin Dose 2.5 MG; Start 07/18/18 at 18:30 Ipratropium [place] (Atrovent 0.02% (Neb)) 0.5 mg Q2H RESP THERAPY PRN NEB SHORTNESS OF BREATH Last administered on 07/20/18 03:25; Admin Dose 0.5 MG; Start 07/18/18 at 18:30 Hydromorphone HCl (Dilaudid) 0.5 mg Q4H PRN IV PAIN LEVEL 7-10 Last a dministered on 07/23/18at 15:04; Admin Dose 0.5 MG; Start 07/18/18 at 18:30 Acetaminophen (Tylenol Liquid) 650 mg Q6H PRN GTB PAIN LEVEL 1-3 OR FEVER Last administered on 07/20/18 21:59; Admin Dose 650 MG; Start 07/19/18 at 10:30 Acetaminophen/ Hydrocodone Bitart ([place] (5/325)) 1 tab Q6H PRN GTB PAIN LEVEL 4-6 Last administered on 07/23/18at 11:57; Admin Dose 1 TAB; Start 07/19/18 at 12:30 Docusate Sodium (Colace Liquid Cup) 100 mg Q12 PRN GTB CONSTIPATION; Start 07/19/18 at 08:00 Docusate Sodium (Colace Liquid Cup) 100 mg QHS GTB Last administered on 07/20/18 21:59; Admin Dose 100 MG; Start 07/19/18 at 21:00 Linezolid 300 ml @ 300 mls/hr Q12 IVPB Last administered on 07/23/18at 08:46; Admin Dose 300 MLS/HR; Start 07/19/18 at 21:00 IV Flush (NS 10 ml) 10 ml PRN PRN IV FLUSH LINE; Start 07/19/18 at 18:30 Levetiracetam (Keppra Liquid) 500 mg Q12 GTB Last administered on 07/23/18at 0 8:46; Admin Dose 500 MG; Start 07/20/18 at 21:00 Gentamicin Sulfate (Gentamicin Iv Per Pharmacy) GENTAMICIN PER PHARMACY NOTE XX ; Start 07/20/18 at 14:00 Gentamicin Sulfate 180 mg/ Sodium Chloride 104.5 ml @ 104.5 mls/ hr Q72H IVPB Last administered on 07/23/18at 15:05; Admin Dose 104.5 MLS/HR; Start 07/20/18 at 16:00 Mupirocin (Bactroban) 1 applic BID TOP Last administered on 07/23/18 08:47; Admin Dose 1 APPLIC; Start 07/21/18 at 21:00 Metronidazole (Flagyl) 500 mg Q8 PO Last administered on 07/23/18at 05:33; Admin Dose 500 MG; Start 07/21/18 at 14:00 Sodium Hypochlorite (Dakins Diluted ()) 1 applic BID TP Last administered on 07/23/18at 08:48; Admin Dose 1 APPLIC; Start 07/22/18 at 09:00 Collagenase (Santyl) 1 applic BID TOP Last administered on 07/23/18at 08:47; Admin Dose 1 APPLIC; Start 07/22/18 at 09:00 Famotidine (Pepcid Iv) 20 mg BID IV ; Start 07/23/18 at 21:00 Epoetin [place]-epbx (Retacrit (Non-Esrd)) 10,000 unit MoWeFr@1700 SC Last administered on 07/23/18at 19:43; Admin Dose 10,000 UNIT; Start 07/23/18 at 18:30 Dextrose 1,000 ml @ 100 mls/hr Q10H IV Last administered on 07/23/18at 18:29; Admin Dose 100 MLS/HR; Start 07/23/18 at 17:30 Norepinephrine 250 ml @ 1.875 mls/ hr TITRATE IV ; Start 07/23/18 at 17:30 NAE VELAZCO Jul 23, 2018 20:32
[2018-07-23] MEDS: FAMOTIDINE 20 MG INJ IV SCH (21:25)
[2018-07-23] MEDS: DOCUSATE SODIUM 10 MG/ML (10ML CUP) GTB SCH (21:26)
[2018-07-23] MEDS: ACETAMINOPHEN 650MG/20.3ML CUP GTB PRN (21:26)
[2018-07-24] VITALS (49 sets, daily range): BP systolic 82–139; BP diastolic 43–90; PULSE 66–87; RESP 9–26
[2018-07-24] MEDS: HYDROmorphONE 0.5 MG/0.5 ML SYG IV PRN ×4 (03:28→23:27)
[2018-07-24] MEDS: DEXTROSE 5% 1,000 ML IV SCH ×2 (03:30→13:41)
[2018-07-24] MEDS: metroNIDAZOLE 500 MG TAB PO SCH ×3 (06:31→21:09)
[2018-07-24] MEDS: BISACODYL 10 MG SUPP PR SCH ×2 (09:00→09:28)
[2018-07-24] MEDS: LINEZOLID 600 MG/300 ML (PMX) 300 ML IVPB SCH (09:26)
[2018-07-24] MEDS: COLLAGENASE 5 GM (UD JAR) TOP SCH ×2 (09:28→21:09)
[2018-07-24] MEDS: METOCLOPRAMIDE 10 MG INJ IV SCH ×3 (09:28→21:08)
[2018-07-24] MEDS: LEVETIRACETAM (100 MG/ML) 5ML CUP GTB SCH ×2 (09:28→21:08)
[2018-07-24] MEDS: QUETIAPINE 25 MG TAB GTB SCH ×2 (09:29→21:08)
[2018-07-24] MEDS: MULTIVITAMINS THERAPEUTIC TAB GTB SCH (09:29)
[2018-07-24] MEDS: ZINC SULFATE 220 MG CAP GTB SCH (09:29)
[2018-07-24] MEDS: DAKINS 0.0125%(1/40) 473 ML SOLUTION TP SCH ×2 (09:30→21:10)
[2018-07-24] MEDS: HYDROCODONE/APAP (5/325) TAB GTB PRN ×3 (09:30→21:09)
[2018-07-24] MEDS: BALSAM PERU/CASTOR OIL 60 GM TUBE TOP SCH ×2 (09:31→21:09)
--- NOTE | 2018-07-24 09:39 | CONS ---
Assessment/Plan Assessment/Plan Hospital Course (Demo Recall) 42 year old paraplegic male presents from SNF for sepsis secondary to pnuemonia and UTI was found to ileus vs SBO on KUB with one episode of coffee ground vomit. 1. Ileus vs SBO 2. Anemia, acute on chronic 3. Acute on chronic renal failure -h/o rt nephrectomy 4. Sepsis secondary to pnuemonia and UTI 5. Pneumonia 6. UTI -Acinetobacter Baumannii 7. 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 Vent dependent respiratory failure 9. Dysphagia, s/p g tube 10. Bipolar disorder Plan: Anemia work up, monitor HH and for acute GI bleeding. [facility]BC [facility] Check HH post transfusion. Continue with reglan and pepcid. Monitor pt for N/V. KUB tomorrow am. Pt examined and plan of care discussed with Dr. Borjas Consultation Date/Type/Reason Admit Date/Time Jul 18, 2018 at 13:59 Date/Time of Note DATE: 07/24/18 TIME: 09:03 Hx of Present Illness 42 yo male with h/o paraplegia secondary to cervical spine injury, vent dependent, dysphagia with g tub admitted to ICU with sepsis and acute on chronic renal failure requiring pressor support. On 07/18/18 CT of abdomen showed diste nded stomach, KUB done 07/23/18 for episode of vomiting showed ileus vs sbo for which we were consulted. Per RN, emesis was coffee ground, no hematemesis noted, no melena or hematochezia noted. Pt denies having h/o GI bleeding, SBO or ileus. Pt also has severe anemia with HH 6.8/25.4 today. One unit prbc is pending. Pt was taken off pressors today, current bp 95/53. Temp at 4am 99.5. Past Medical History Medical History: other (paraplegia secondary to cervical spine injury, ventilator dependent respiratory failure with tracheostomy, dysphagia with G-tube, chronic kidney disease and history of right nephrectomy and left renal nephrolithiasis, bipolar disorder) Home Meds Reported Medications Tramadol Hcl* (Ultram*) 50 Mg Tablet, 50 MG GTB BID PRN for BREAKTHROUGH PAIN, TAB 07/18/18 Acetaminophen* (Acetaminophen*) 500 MG Extra Strength Tablet, 1000 MG GTB Q4 PRN for PAIN LEVEL 4-6, TAB 07/18/18 Acetaminophen* (Acetaminophen*) 650 Mg Tablet, 650 MG GTB Q4 PRN for PAIN LEVEL 1-3, #30 TAB AND FEVER 07/18/18 Glycopyrrolate* (Glycopyrrolate*) 1 Mg Tablet, 1 MG GTB TID, TAB 07/18/18 Epoetin Prince (Procrit) 4,000 Unit/1 Ml Vial, 4000 UNIT IJ MON, WED,SAT,, VIAL HOLD IF HGB ABOVE 10 07/18/18 Famotidine* (Pepcid*) 20 Mg Tablet, 20 MG GTB DAILY, #30 TAB 07/18/18 Multivitamins* (Theragran*) 1 Tab Tab, 1 TAB GTB DAILY, TAB 07/18/18 Midodrine* (Midodrine*) 5 Mg Tablet, 5 MG GTB BID, TAB FOR SBP BELOW 90 07/18/18 Enoxaparin Sodium* (Lovenox*) 30 Mg/0.3 Ml Disp.syrin, 30 MG SQ DAILY, SYR 07/18/18 Hydromorphone Hcl* (Dilaudid*) 2 Mg Tablet, 2 MG PO Q4H PRN for PAIN 7-9, TAB 07/18/18 Citric Acid/Sodium Citrate (Sod Citrate-Citric Acid Soln) 473 Ml Solution, 30 ML GTB TID 07/18/18 Atenolol* (Atenolol*) 25 Mg Tablet, 12.5 MG GTB BID, #60 TAB 07/18/18 Zinc Sulfate* (Zinc Sulfate*) 220 Mg Tablet, 220 MG GTB DAILY, TAB 05/14/18 Cran/Vitc/Mannose/Inulin/Brom (Uti-Stat Liquid) 3,875 Mg/30 Ml Liquid, 30 ML GTB DAILY 05/14/18 Quetiapine Fumarate* (Seroquel*) 50 Mg Tablet, 50 MG GTB BID, TAB 05/14/18 Magnesium Hydroxide* (Milk Of Magnesia*) 400 Mg/5 Ml Oral.susp, 30 ML GTB NEEDED, ML END DATE 07/09/18 05/14/18 Levetiracetam* (Keppra* (Ped)) 100 Mg/Ml Liq, 5 ML GTB Q12H for 30 Days, BOTTLE 05/14/18 Na Phos,M-B/Na Phos,Di-Ba (Fleet Enema Extra) 230 Ml Enema, 1 APPLIC RC NE EDED, ENEMA END DATE 07/09/18 05/14/18 Bisacodyl* (Bisacodyl*) 10 Mg Supp, 10 MG IN NEEDED, SUPP END DATE 07/09/18 05/14/18 Cranberry Extract (Cranberry) 425 Mg Capsule, 425 MG GTB DAILY, CAP 05/14/18 Docusate Sodium* (Colace*) 100 Mg Capsule, 100 MG GTB QHS, #30 CAP 05/14/18 Chlorhexidine Gluconate (Peridex) 473 Ml Mouthwash, 15 ML MM Q12H, BOTTLE 05/14/18 Albuterol Sulfate* (Albuterol Sulfate* Neb) 0.083%-3 Ml Neb, 2.5 MG NEB Q6H PRN for WHEEZING AND SOB, #30 VIAL AND Q3H NEEDED 05/14/18 Discontinued Reported Medications Ascorbic Acid (Vitamin C) 500 Mg Tab, 500 MG GTB DAILY, TAB 05/14/18 Acetaminophen* (Acetaminophen*) 500 MG Extra Strength Tablet, 1000 MG GTB Q4H PRN for PAIN -07/16, TAB 05/14/18 Acetaminophen* (Tylenol*) 325 Mg Tablet, 650 MG GTB NEEDED PRN for FOR TRACH TUBE TUBE, TAB 05/14/18 Acetaminophen* (Tylenol*) 325 Mg Tablet, 650 MG GTB Q4H PRN for MILD PAIN LEVEL 1-3, TAB FOR TEMP 101F AND ABOVE, END DATE 07/09/18 05/14/18 Tramadol Hcl* (Ultram*) 50 Mg Tablet, 50 MG GTB BID PRN for PAIN, TAB 05/14/18 Epoetin Prince (Epogen) 10,000 Units/Ml Soln, 5000 UNITS SC Q MON,WED,SAT, VIAL HOLD IF HGB ABOVE 10 AT 1700 05/14/18 Amino Acids/Protein Hydrolys (PRO-STAT LIQUID) 30 Ml Liquid.pkt, 30 ML GTB DAILY SUGAR FREE 05/14/18 Multivitamins* (Theragran*) 1 Tab Tab, 1 TAB GTB DAILY, TAB 05/14/18 Acetylcysteine* (Mucomyst*) 4 Ml Soln, 4 ML NEB Q6H, EA 4/8/19 Argin/Glut/Cahmb/Collag/Mv-Min (Nkiko Packet) 1 Each Powd.pack, 1 EACH GTB BID 05/14/18 Glycopyrrolate* (Glycopyrrolate*) 1 Mg Tablet, 1 MG GTB TID, TAB 05/14/18 Hydromorphone Hcl* (Dilaudid*) 4 Mg Tablet, 4 MG GTB Q4H PRN for PAIN LEVEL 7- 9/10, TAB END DATE 07/09/18 05/14/18 Baclofen* (Baclofen*) 10 Mg Tablet, 5 MG GTB TID, TAB 05/14/18 Medications Current Medications Bisacodyl (Dulcolax Supp) 10 mg DAILY IN Last administered on 07/22/18at 09:00; Admin Dose 10 MG; Start 07/19/18 at 09:00 Multivitamins Therapeutic (Theragran) 1 tab DAILY GTB Last administered on 07/22/18 09:26; Admin Dose 1 TAB; Start 07/19/18 at 09:00 Quetiapine Fumarate (Seroquel) 50 mg BID GTB Last administered on 07/23/18at 2 1:26; Admin Dose 50 MG; Start 07/18/18 at 21:00 Zinc Sulfate (Zinc Sulfate) 220 mg DAILY GTB Last administered on 07/22/18 09:26; Admin Dose 220 MG; Start 07/19/18 at 09:00 IV Flush (NS 3 ml) 3 ml PER PROTOCOL IV ; Start 07/18/18 at 18:30 Ondansetron HCl (Zofran Inj) 4 mg Q6H PRN IV NAUSEA AND/OR VOMITING Last administered on 07/23/18at 21:38; Admin Dose 4 MG; Start 07/18/18 at 18:30 Albuterol (Proventil 0.083% (Neb)) 2.5 mg Q2H RESP THERAPY PRN NEB SHORTNESS OF BREATH Last administered on 07/20/18at 23:05; Admin Dose 2.5 MG; Start 07/18/18 at 18:30 Ipratropium [place] (Atrovent 0.02% (Neb)) 0.5 mg Q2H RESP THERAPY PRN NEB SHORTNESS OF BREATH Last administered on 07/20/18at 03:25; Admin Dose 0.5 MG; Start 07/18/18 at 18:30 Hydromorphone HCl (Dilaudid) 0.5 mg Q4H PRN IV PAIN LEVEL 7-10 Last administered on 07/24/18 03:28; Admin Dose 0.5 MG; Start 07/18/18 at 18:30 Acetaminophen (Tylenol Liquid) 650 mg Q6H PRN GTB PAIN LEVEL 1-3 OR FEVER Last administered on 07/23/18 21:26; Admin Dose 650 MG; Start 07/19/18 at 10:30 Acetaminophen/ Hydrocodone Bitart ([place] (5/325)) 1 tab Q6H PRN GTB PAIN LEVEL 4-6 Last administered on 07/23/18 11:57; Admin Dose 1 TAB; Start 07/19/18 at 12:30 Docusate Sodium (Colace Liquid Cup) 100 mg Q12 PRN GTB CONSTIPATION; Start 07/19/18 at 08:00 Docusate Sodium (Colace Liquid Cup) 100 mg QHS GTB Last administered on 07/23/18 21:26; Admin Dose 100 MG; Start 07/19/18 at 21:00 Linezolid 300 ml @ 300 mls/hr Q12 IVPB Last administered on 07/23/18 21:26; Admin Dose 300 MLS/HR; Start 07/19/18 at 21:00 IV Flush (NS 10 ml) 10 ml PRN PRN IV FLUSH LINE; Start 07/19/18 at 18:30 Levetiracetam (Keppra Liquid) 500 mg Q12 GTB Last administered on 07/23/18 21:25; Admin Dose 500 MG; Start 07/20/18 at 21:00 Gentamicin Sulfate (Gentamicin Iv Per Pharmacy) GENTAMICIN PER PHARMACY NOTE XX ; Start 07/20/18 at 14:00 Gentamicin Sulfate 180 mg/ Sodium Chloride 104.5 ml @ 104.5 mls/ hr Q72H IVPB Last administered on 07/23/18 15:05; Admin Dose 104.5 MLS/HR; Start 07/20/18 at 16:00 Mupirocin (Bactroban) 1 applic BID TOP Last administered on 07/23/18 21:27; Admin Dose 1 APPLIC; Start 07/21/18 at 21:00 Metronidazole (Flagyl) 500 mg Q8 PO Last administered on 07/24/18at 06:31; Admin Dose 500 MG; Start 07/21/18 at 14:00 Sodium Hypochlorite (Dakins Diluted ()) 1 applic BID TP Last administered on 07/23/18at 21:27; Admin Dose 1 APPLIC; Start 07/22/18 at 09:00 Collagenase (Santyl) 1 applic BID TOP Last administered on 07/23/18at 21:26; Admin Dose 1 APPLIC; Start 07/22/18 at 09:00 Famotidine (Pepcid Iv) 20 mg BID IV Last administered on 07/23/18at 21:25; Admin Dose 20 MG; Start 07/23/18 at 21:00 Epoetin Prince-epbx (Retacrit (Non-Esrd)) 10,000 unit MoWeFr@1700 SC Last administered on 07/23/18at 19:43; Admin Dose 10,000 UNIT; Start 07/23/18 at 18:30 Dextrose 1,000 ml @ 100 mls/hr Q10H IV Last administered on 07/24/18at 03:30; Admin Dose 100 MLS/HR; Start 07/23/18 at 17:30 Norepinephrine 250 ml @ 1.875 mls/ hr TITRATE IV ; Start 07/23/18 at 17:30 Metoclopramide HCl (Reglan) 5 mg TID IV ; Start 07/24/18 at 09:00 Allergies: Coded Allergies: Tetracyclines (Verified Allergy, Unknown, 07/18/18) Past Surgical History Past Surgical Hx: other (Is post right nephrectomy, status post tracheostomy, status post G-tube placement, status post left lithotripsy) Social History Alcohol Use: none Smoking Status: Never smoker Drug Use: none Exam/Review of Systems Exam Vitals Vital Signs Date Temp Pulse Resp B/P (MAP) Pulse Ox O2 O2 Flow FiO2 Time Delivery Rate 07/24/18 73 08:00 07/24/18 20 103/55 100 06:00 (71) 07/24/18 50 05:30 07/24/18 99.5 04:00 07/23/18 Mechanical 20:00 Ventilator Intake and Output 07/23/18 07/23/18 07/24/18 1515:00 23:00 07:00 IntakeIntake Total 300 ml 854.5 ml 700 ml OutputOutput Total 400 ml 315 ml 190 ml BalanceBalance -100 ml 539.5 ml 510 ml Constitutional: alert Psych: no complaints Head: normocephalic Eyes: nl sclera, PERRL Neck: other (trach to vent) Respiratory: crackles/rales, diminished breath sounds Cardiovascular: regular rate and rhythm Gastrointestinal: soft, non-tender, bowel sounds, distended Neurological: other (A/O x4) Results Result Diagram: 07/24/18 0430 07/24/18 0430 Results 24hrs Laboratory Tests Test 07/23/18 14:28 07/24/18 04:30 White Blood Count 7.9 # 6.3 # Red Blood Count 2.61 L 2.49 L Hemoglobin 7.2 L 6.8 *L Hematocrit 26.4 L 25.4 L Mean Corpuscular Volume 101.1 H 102.0 H Mean Corpuscular Hemoglobin 27.6 L 27.3 L Mean Corpuscular Hemoglobin Concent 27.3 L 26.8 L Red Cell Distribution Width 18.7 H 19.0 H Platelet Count 101 L 97 L Mean Platelet Volume 14.7 H 14.9 H Immature Granulocytes % 1.300 H 0.300 Neutrophils % 93.0 H 87.3 H Lymphocytes % 1.4 L 5.9 L Monocytes % 4.2 6.3 Eosinophils % 0.0 0.0 Basophils % 0.1 0.2 Nucleated Red Blood Cells % 0.0 0.0 Immature Granulocytes # 0.100 H 0.020 Neutrophils # 7.3 5.5 Lymphocytes # 0.1 L 0.4 L Monocytes # 0.3 0.4 Eosinophils # 0.0 0.0 Basophils # 0.0 0.0 Nucleated Red Blood Cells # 0.0 0.0 Segmented Neutrophils % (Manual) 81 H Band Neutrophils % (Manual) 7 H Lymphocytes % (Manual) 8 L Monocytes % (Manual) 2 Myelocytes % (Manual) 2 H Neutrophils # (Manual) 5.1 Band Neutrophils # 0.4 Lymphocytes (Manual) 0.5 L Monocytes # (Manual) 0.1 L Myelocytes # 0.1 H Platelet Estimate DECREASED Polychromasia 1+ Hypochromasia 1+ Poikilocytosis 1+ Anisocytosis 2+ Microcytosis 1+ Ovalocytes 1+ Sodium Level 147 H Potassium Level 3.3 L Chloride Level 115 H Carbon Dioxide Level 21 Anion Gap 11 Blood Urea Nitrogen 103 H Creatinine 2.24 H Est Glomerular Filtrat Rate mL/min 32 L Glucose Level 113 Calcium Level 8.3 L Medications Medication Current Medications Bisacodyl (Dulcolax Supp) 10 mg DAILY IN Last administered on 07/22/18 09:00; Admin Dose 10 MG; Start 07/19/18 at 09:00 Multivitamins Therapeutic (Theragran) 1 tab DAILY GTB Last administered on 07/22/18 09:26; Admin Dose 1 TAB; Start 07/19/18 at 09:00 Quetiapine Fumarate (Seroquel) 50 mg BID GTB Last administered on 07/23/18 21:26; Admin Dose 50 MG; Start 07/18/18 at 21:00 Zinc Sulfate (Zinc Sulfate) 220 mg DAILY GTB Last administered on 07/22/18 09:26; Admin Dose 220 MG; Start 07/19/18 at 09:00 IV Flush (NS 3 ml) 3 ml PER PROTOCOL IV ; Start 07/18/18 at 18:30 Ondansetron HCl (Zofran Inj) 4 mg Q6H PRN IV NAUSEA AND/OR VOMITING Last a dministered on 07/23/18 21:38; Admin Dose 4 MG; Start 07/18/18 at 18:30 Albuterol (Proventil 0.083% (Neb)) 2.5 mg Q2H RESP THERAPY PRN NEB SHORTNESS OF BREATH Last administered on 07/20/18 23:05; Admin Dose 2.5 MG; Start 07/18/18 at 18:30 Ipratropium [place] (Atrovent 0.02% (Neb)) 0.5 mg Q2H RESP THERAPY PRN NEB SHORTNESS OF BREATH Last administered on 07/20/18 03:25; Admin Dose 0.5 MG; Start 07/18/18 at 18:30 Hydromorphone HCl (Dilaudid) 0.5 mg Q4H PRN IV PAIN LEVEL 7-10 Last administered on 07/24/18 03:28; Admin Dose 0.5 MG; Start 07/18/18 at 18:30 Acetaminophen (Tylenol Liquid) 650 mg Q6H PRN GTB PAIN LEVEL 1-3 OR FEVER Last administered on 07/23/18 21:26; Admin Dose 650 MG; Start 07/19/18 at 10:30 Acetaminophen/ Hydrocodone Bitart ([place] (5/325)) 1 tab Q6H PRN GTB PAIN LEVEL 4-6 Last administered on 07/23/18 11:57; Admin Dose 1 TAB; Start 07/19/18 at 12:30 Docusate Sodium (Colace Liquid Cup) 100 mg Q12 PRN GTB CONSTIPATION; Start 07/19/18 at 08:00 Docusate Sodium (Colace Liquid Cup) 100 mg QHS GTB Last administered on 07/23/18 21:26; Admin Dose 100 MG; Start 07/19/18 at 21:00 Linezolid 300 ml @ 300 mls/hr Q12 IVPB Last administered on 07/23/18 21:26; Admin Dose 300 MLS/HR; Start 07/19/18 at 21:00 IV Flush (NS 10 ml) 10 ml PRN PRN IV FLUSH LINE; Start 07/19/18 at 18:30 Levetiracetam (Keppra Liquid) 500 mg Q12 GTB Last administered on 07/23/18 21:25; Admin Dose 500 MG; Start 07/20/18 at 21:00 Gentamicin Sulfate (Gentamicin Iv Per Pharmacy) GENTAMICIN PER PHARMACY NOTE XX ; Start 07/20/18 at 14:00 Gentamicin Sulfate 180 mg/ Sodium Chloride 104.5 ml @ 104.5 mls/ hr Q72H IVPB Last administered on 07/23/18 15:05; Admin Dose 104.5 MLS/HR; Start 07/20/18 at 16:00 Mupirocin (Bactroban) 1 applic BID TOP Last administered on 07/23/18 21:27; Admin Dose 1 APPLIC; Start 07/21/18 at 21:00 Metronidazole (Flagyl) 500 mg Q8 PO Last administered on 07/24/18 06:31; Admin Dose 500 MG; Start 07/21/18 at 14:00 Sodium Hypochlorite (Dakins Diluted (40)) 1 applic BID TP Last administered on 07/23/18 21:27; Admin Dose 1 APPLIC; Start 07/22/18 at 09:00 Collagenase (Santyl) 1 applic BID TOP Last administered on 6/17/19at 21:26; Admin Dose 1 APPLIC; Start 07/22/18 at 09:00 Famotidine (Pepcid Iv) 20 mg BID IV Last administered on 07/23/18at 21:25; Admin Dose 20 MG; Start 07/23/18 at 21:00 Epoetin Prince-epbx (Retacrit (Non-Esrd)) 10,000 unit MoWeFr@1700 SC Last administered on 07/23/18at 19:43; Admin Dose 10,000 UNIT; Start 07/23/18 at 18:30 Dextrose 1,000 ml @ 100 mls/hr Q10H IV Last administered on 07/24/18at 03:30; Admin Dose 100 MLS/HR; Start 07/23/18 at 17:30 Norepinephrine 250 ml @ 1.875 mls/ hr TITRATE IV ; Start 07/23/18 at 17:30 Metoclopramide HCl (Reglan) 5 mg TID IV ; Start 07/24/18 at 09:00 ISIAH SEYMOUR Jul 24, 2018 09:28
[2018-07-24] MEDS: FAMOTIDINE 20 MG INJ IV SCH ×2 (09:48→21:38)
--- NOTE | 2018-07-24 11:36 | CONS ---
Assessment/Plan Assessment/Plan Assessment/Plan (Daily) - Hypokalemia- replace K; fu am BMP Anemia- Hgb 6.8 today; pending 1 unit PRBC today 1. Acute Renal failure with severe Uremia, BUN trended down to 114 today 2. Septic shock on Levophed due to PNA and UTI 3. PNA concerned about HCAP 4. UTI 5. 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 ventilator dependent respiratory failure with tracheostomy 7. dysphagia with G-tube 8. chronic kidney disease III 9. history of right nephrectomy 10. left renal nephrolithiasis 11. bipolar disorder Plan: BP still labile IV abx for Septic shock, Renally dose all abx and monitor electrolytes continue IVF NS at 100 cc/hr SP IV albumin 25% 100ml Q 8 hr x 3 doses pt is currently severely dry, will continue IVF NS at 100 cc/ hr We will continue to follow up Critical care time spent is 30 minutes.Patient seen in collaboration with Dr Paul Barker. dw staff Consultation Date/Type/Reason Admit Date/Time Jul 18, 2018 at 13:59 Initial Consult Date 07/18/18 Type of Consult Nephrology Requesting Provider: JOSÉ ANTONIO MIRZA MD Date/Time of Note DATE: 07/24/18 TIME: 11:33 24 HR Interval Summary Free Text/Dictation BUN is same ; Cr trended up to 2.24 today sp coffee ground emesis x1 yesterday Hgb 6.8 today- pending transfusion today- pt blood has antibodies dw staff Subjective hx not possible: pt non-verbal, pt critical status Constitutional: requiring IVF, requiring O2 Exam/Review of Systems Exam Vitals Vital Signs Date Temp Pulse Resp B/P (MAP) Pulse Ox O2 O2 Flow FiO2 Time Delivery Rate 07/24/18 77 16 92/44 (60) 97 11:00 07/24/18 97.9 08:00 07/24/18 50 05:30 07/23/18 Mechanical 20:00 Ventilator Intake and Output 07/23/18 07/23/18 07/24/18 1515:00 23:00 07:00 IntakeIntake Total 300 ml 854.5 ml 700 ml OutputOutput Total 400 ml 315 ml 190 ml BalanceBalance -100 ml 539.5 ml 510 ml Constitutional: non-verbal, frail Psych: nl mood/affect Eyes: nl lids, nl sclera ENMT: nl external ears & nose Neck: other (trach inatct) Respiratory: diminished breath sounds Cardiovascular: nl pulses, other (s1s2); No S3 Gastrointestinal: soft, other (gt intact) Musculoskeletal: joint tenderness, muscle weakness, range of motion Neurological: confused Skin: other (decubs) Results Result Diagram: 07/24/18 0430 07/24/18 0430 Results 24hrs Laboratory Tests Test 07/23/18 14:28 07/24/18 04:30 07/24/18 09:59 White Blood Count 7.9 # 6.3 # Red Blood Count 2.61 L 2.49 L Hemoglobin 7.2 L 6.8 *L Hematocrit 26.4 L 25.4 L Mean Corpuscular Volume 101.1 H 102.0 H Mean Corpuscular Hemoglobin 27.6 L 27.3 L Mean Corpuscular Hemoglobin Concent 27.3 L 26.8 L Red Cell Distribution Width 18.7 H 19.0 H Platelet Count 101 L 97 L Mean Platelet Volume 14.7 H 14.9 H Immature Granulocytes % 1.300 H 0.300 Neutrophils % 93.0 H 87.3 H Lymphocytes % 1.4 L 5.9 L Monocytes % 4.2 6.3 Eosinophils % 0.0 0.0 Basophils % 0.1 0.2 Nucleated Red Blood Cells % 0.0 0.0 Immature Granulocytes # 0.100 H 0.020 Neutrophils # 7.3 5.5 Lymphocytes # 0.1 L 0.4 L Monocytes # 0.3 0.4 Eosinophils # 0.0 0.0 Basophils # 0.0 0.0 Nucleated Red Blood Cells # 0.0 0.0 Segmented Neutrophils % (Manual) 81 H Band Neutrophils % (Manual) 7 H Lymphocytes % (Manual) 8 L Monocytes % (Manual) 2 Myelocytes % (Manual) 2 H Neutrophils # (Manual) 5.1 Band Neutrophils # 0.4 Lymphocytes (Manual) 0.5 L Monocytes # (Manual) 0.1 L Myelocytes # 0.1 H Platelet Estimate DECREASED Polychromasia 1+ Hypochromasia 1+ Poikilocytosis 1+ Anisocytosis 2+ Microcytosis 1+ Ovalocytes 1+ Sodium Level 147 H Potassium Level 3.3 L Chloride Level 115 H Carbon Dioxide Level 21 Anion Gap 11 Blood Urea Nitrogen 103 H Creatinine 2.24 H Est Glomerular Filtrat Rate mL/min 32 L Glucose Level 113 Calcium Level 8.3 L Absolute Reticulocyte Count 0.048 Percent Reticulocyte Count 2.0 H Iron Level < 10 L Total Iron Binding Capacity 122 L Percent Iron Saturation Medications Medication Current Medications Bisacodyl (Dulcolax Supp) 10 mg DAILY MI Last administered on 07/22/18 09:00; Admin Dose 10 MG; Start 07/19/18 at 09:00 Multivitamins Therapeutic (Theragran) 1 tab DAILY GTB Last administered on 07/24/18 09:29; Admin Dose 1 TAB; Start 07/19/18 at 09:00 Quetiapine Fumarate (Seroquel) 50 mg BID GTB Last administered on 07/24/18 09:29; Admin Dose 50 MG; Start 07/18/18 at 21:00 Zinc Sulfate (Zinc Sulfate) 220 mg DAILY GTB Last administered on 07/24/18 09:29; Admin Dose 220 MG; Start 07/19/18 at 09:00 IV Flush (NS 3 ml) 3 ml PER PROTOCOL IV ; Start 07/18/18 at 18:30 Ondansetron HCl (Zofran Inj) 4 mg Q6H PRN IV NAUSEA AND/OR VOMITING Last administered on 07/23/18 21:38; Admin Dose 4 MG; Start 07/18/18 at 18:30 Albuterol (Proventil 0.083% (Neb)) 2.5 mg Q2H RESP THERAPY PRN NEB SHORTNESS OF BREATH Last administered on 07/20/18 23:05; Admin Dose 2.5 MG; Start 07/18/18 at 18:30 Ipratropium [place] (Atrovent 0.02% (Neb)) 0.5 mg Q2H RESP THERAPY PRN NEB SHORTNESS OF BREATH Last administered on 07/20/18 03:25; Admin Dose 0.5 MG; Start 07/18/18 at 18:30 Hydromorphone HCl (Dilaudid) 0.5 mg Q4H PRN IV PAIN LEVEL 7-10 Last administered on 07/24/18 03:28; Admin Dose 0.5 MG; Start 07/18/18 at 18:30 Acetaminophen (Tylenol Liquid) 650 mg Q6H PRN GTB PAIN LEVEL 1-3 OR FEVER Last administered on 07/23/18 21:26; Admin Dose 650 MG; Start 07/19/18 at 10:30 Acetaminophen/ Hydrocodone Bitart ([place] (5/325)) 1 tab Q6H PRN GTB PAIN LEVEL 4-6 Last administered on 07/24/18 09:30; Admin Dose 1 TAB; Start 07/19/18 at 12:30 Docusate Sodium (Colace Liquid Cup) 100 mg Q12 PRN GTB CONSTIPATION; Start 07/19/18 at 08:00 Docusate Sodium (Colace Liquid Cup) 100 mg QHS GTB Last administered on 07/23/18 21:26; Admin Dose 100 MG; Start 07/19/18 at 21:00 Linezolid 300 ml @ 300 mls/hr Q12 IVPB Last administered on 07/24/18 09:26; Admin Dose 300 MLS/HR; Start 07/19/18 at 21:00 IV Flush (NS 10 ml) 10 ml PRN PRN IV FLUSH LINE; Start 07/19/18 at 18:30 Levetiracetam (Keppra Liquid) 500 mg Q12 GTB Last administered on 07/24/18 09:28; Admin Dose 500 MG; Start 07/20/18 at 21:00 Gentamicin Sulfate (Gentamicin Iv Per Pharmacy) GENTAMICIN PER PHARMACY NOTE XX ; Start 07/20/18 at 14:00 Gentamicin Sulfate 180 mg/ Sodium Chloride 104.5 ml @ 104.5 mls/ hr Q72H IVPB Last administered on 07/23/18 15:05; Admin Dose 104.5 MLS/HR; Start 07/20/18 at 16:00 Mupirocin (Bactroban) 1 applic BID TOP Last administered on 07/23/18 21:27; Admin Dose 1 APPLIC; Start 07/21/18 at 21:00 Metronidazole (Flagyl) 500 mg Q8 PO Last administered on 07/24/18 06:31; Admin Dose 500 MG; Start 07/21/18 at 14:00 Sodium Hypochlorite (Dakins Diluted (40)) 1 applic BID TP Last administered on 07/24/18 09:30; Admin Dose 1 APPLIC; Start 07/22/18 at 09:00 Collagenase (Santyl) 1 applic BID TOP Last administered on 07/24/18 09:28; Admin Dose 1 APPLIC; Start 07/22/18 at 09:00 Famotidine (Pepcid Iv) 20 mg BID IV Last administered on 07/24/18 09:48; Admin Dose 20 MG; Start 07/23/18 at 21:00 Epoetin [place]-epbx (Retacrit (Non-Esrd)) 10,000 unit MoWeFr@1700 SC Last adminis tered on 07/23/18 19:43; Admin Dose 10,000 UNIT; Start 07/23/18 at 18:30 Dextrose 1,000 ml @ 100 mls/hr Q10H IV Last administered on 07/24/18at 03:30; Admin Dose 100 MLS/HR; Start 07/23/18 at 17:30 Norepinephrine 250 ml @ 1.875 mls/ hr TITRATE IV ; Start 07/23/18 at 17:30 Metoclopramide HCl (Reglan) 5 mg TID IV Last administered on 07/24/18 09:28; Admin Dose 5 MG; Start 07/24/18 at 09:00 NAE VELAZCO Jul 24, 2018 11:36
[2018-07-24] MEDS: MUPIROCIN 2% 22 GM OINT TOP SCH ×2 (11:49→21:09)
[2018-07-24] MEDS: ACETAMINOPHEN 650MG/20.3ML CUP GTB PRN (12:05)
--- NOTE | 2018-07-24 13:22 | CONS ---
Assessment/Plan Assessment/Plan Hospital Course (Demo Recall) No events, looks comfortable, no fevers Microbiology: Urine culture grew Acinetobacter susceptible to gentamicin tobramycin and Bactrim, blood cultures negative Allergies: Tetracyclines Antimicrobials: Zyvox, Gentamicin Diflucan, Flagyl Indwelling: Trach, PEG, PICC line, suprapubic catheter CT abdomen pelvis revealed bibasilar atelectasis and small effusions. Small ascites. Left hydroureter due to multiple small 2 mm stones in the course of the ureter cannot rule out pyelonephritis. Gastrostomy tube in the distended stomach. Allergies: Tetracyclines Physical examination: Chronically ill-appearing wasted middle-aged man who is awake in no distress. Head atraumatic normocephalic sclera nonicteric vehicle mucosa dry neck is supple tracheostomy present chest rise symmetrical breath sounds diminished the bases. Heart: S1-S2. Abdomen soft bowel sounds present. Extremities wasted contractured Assessment: 1. Severe sepsis with shock 2. Recurrent UTI/acute pyelonephritis 3. Acute on chronic respiratory failure ?PNA 4. Acute on chronic kidney disease 5. Incomplete quadriplegia 6. Anemia and thrombocytopenia 7. History of left breast nephrectomy 8. Multiple chronic decubitus ulcers 9. Diarrhea, rule out C. difficile 10. MRSA colonization of the naris Plan: Remains unchanged, dc Zyvox, continue antibiotics, vent management per pulmonary Consultation Date/Type/Reason Admit Date/Time Jul 18, 2018 at 13:59 Initial Consult Date 07/18/18 Type of Consult id Requesting Provider: JOSÉ ANTONIO MIRZA MD Date/Time of Note DATE: 07/24/18 TIME: 13:20 Exam/Review of Systems Exam Vitals Vital Signs Date Temp Pulse Resp B/P (MAP) Pulse Ox O2 O2 Flow FiO2 Time Delivery Rate 07/24/18 80 12:00 07/24/18 16 92/44 (60) 97 11:00 07/24/18 97.9 08:00 07/24/18 50 05:30 07/23/18 Mechanical 20:00 Ventilator Intake and Output 07/23/18 07/23/18 07/24/18 1515:00 23:00 07:00 IntakeIntake Total 300 ml 854.5 ml 700 ml OutputOutput Total 400 ml 315 ml 190 ml BalanceBalance -100 ml 539.5 ml 510 ml Results Result Diagram: 07/24/18 0430 07/24/18 0430 Results 24hrs Laboratory Tests Test 07/23/18 14:28 07/24/18 04:30 07/24/18 09:59 White Blood Count 7.9 # 6.3 # Red Blood Count 2.61 L 2.49 L Hemoglobin 7.2 L 6.8 *L Hematocrit 26.4 L 25.4 L Mean Corpuscular Volume 101.1 H 102.0 H Mean Corpuscular Hemoglobin 27.6 L 27.3 L Mean Corpuscular Hemoglobin Concent 27.3 L 26.8 L Red Cell Distribution Width 18.7 H 19.0 H Platelet Count 101 L 97 L Mean Platelet Volume 14.7 H 14.9 H Immature Granulocytes % 1.300 H 0.300 Neutrophils % 93.0 H 87.3 H Lymphocytes % 1.4 L 5.9 L Monocytes % 4.2 6.3 Eosinophils % 0.0 0.0 Basophils % 0.1 0.2 Nucleated Red Blood Cells % 0.0 0.0 Immature Granulocytes # 0.100 H 0.020 Neutrophils # 7.3 5.5 Lymphocytes # 0.1 L 0.4 L Monocytes # 0.3 0.4 Eosinophils # 0.0 0.0 Basophils # 0.0 0.0 Nucleated Red Blood Cells # 0.0 0.0 Segmented Neutrophils % (Manual) 81 H Band Neutrophils % (Manual) 7 H Lymphocytes % (Manual) 8 L Monocytes % (Manual) 2 Myelocytes % (Manual) 2 H Neutrophils # (Manual) 5.1 Band Neutrophils # 0.4 Lymphocytes (Manual) 0.5 L Monocytes # (Manual) 0.1 L Myelocytes # 0.1 H Platelet Estimate DECREASED Polychromasia 1+ Hypochromasia 1+ Poikilocytosis 1+ Anisocytosis 2+ Microcytosis 1+ Ovalocytes 1+ Sodium Level 147 H Potassium Level 3.3 L Chloride Level 115 H Carbon Dioxide Level 21 Anion Gap 11 Blood Urea Nitrogen 103 H Creatinine 2.24 H Est Glomerular Filtrat Rate mL/min 32 L Glucose Level 113 Calcium Level 8.3 L Absolute Reticulocyte Count 0.048 Percent Reticulocyte Count 2.0 H Iron Level < 10 L Total Iron Binding Capacity 122 L Percent Iron Saturation Ferritin 515.0 H Vitamin B12 Level > 1000 H Folate > 20.0 H Medications Medication Current Medications Bisacodyl (Dulcolax Supp) 10 mg DAILY [place] Last administered on 07/22/18 09:00; Admin Dose 10 MG; Start 07/19/18 at 09:00 Multivitamins Therapeutic (Theragran) 1 tab DAILY GTB Last administered on 07/24/18 09:29; Admin Dose 1 TAB; Start 07/19/18 at 09:00 Quetiapine Fumarate (Seroquel) 50 mg BID GTB Last administered on 07/24/18 09:29; Admin Dose 50 MG; Start 07/18/18 at 21:00 Zinc Sulfate (Zinc Sulfate) 220 mg DAILY GTB Last administered on 07/24/18 09: 29; Admin Dose 220 MG; Start 07/19/18 at 09:00 IV Flush (NS 3 ml) 3 ml PER PROTOCOL IV ; Start 07/18/18 at 18:30 Ondansetron HCl (Zofran Inj) 4 mg Q6H PRN IV NAUSEA AND/OR VOMITING Last administered on 07/23/18 21:38; Admin Dose 4 MG; Start 07/18/18 at 18:30 Albuterol (Proventil 0.083% (Neb)) 2.5 mg Q2H RESP THERAPY PRN NEB SHORTNESS OF BREATH Last administered on 07/20/18 23:05; Admin Dose 2.5 MG; Start 07/18/18 at 18:30 Ipratropium [place] (Atrovent 0.02% (Neb)) 0.5 mg Q2H RESP THERAPY PRN NEB SHORTNESS OF BREATH Last administered on 07/20/18 03:25; Admin Dose 0.5 MG; Start 07/18/18 at 18:30 Hydromorphone HCl (Dilaudid) 0.5 mg Q4H PRN IV PAIN LEVEL 7-10 Last administered on 07/24/18 03:28; Admin Dose 0.5 MG; Start 07/18/18 at 18:30 Acetaminophen (Tylenol Liquid) 650 mg Q6H PRN GTB PAIN LEVEL 1-3 OR FEVER Last administered on 07/24/18 12:05; Admin Dose 650 MG; Start 07/19/18 at 10:30 Acetaminophen/ Hydrocodone Bitart ([place] (5/325)) 1 tab Q6H PRN GTB PAIN LEVEL 4-6 Last administered on 07/24/18 09:30; Admin Dose 1 TAB; Start 07/19/18 at 12:30 Docusate Sodium (Colace Liquid Cup) 100 mg Q12 PRN GTB CONSTIPATION; Start 07/19/18 at 08:00 Docusate Sodium (Colace Liquid Cup) 100 mg QHS GTB Last administered on 07/23/18 21:26; Admin Dose 100 MG; Start 07/19/18 at 21:00 Linezolid 300 ml @ 300 mls/hr Q12 IVPB Last administered on 07/24/18 09:26; Admin Dose 300 MLS/HR; Start 07/19/18 at 21:00 IV Flush (NS 10 ml) 10 ml PRN PRN IV FLUSH LINE; Start 07/19/18 at 18:30 Levetiracetam (Keppra Liquid) 500 mg Q12 GTB Last administered on 07/24/18 09:28; Admin Dose 500 MG; Start 07/20/18 at 21:00 Gentamicin Sulfate (Gentamicin Iv Per Pharmacy) GENTAMICIN PER PHARMACY NOTE XX ; Start 07/20/18 at 14:00 Gentamicin Sulfate 180 mg/ Sodium Chloride 104.5 ml @ 104.5 mls/ hr Q72H IVPB Last administered on 07/23/18 15:05; Admin Dose 104.5 MLS/HR; Start 07/20/18 at 16:00 Mupirocin (Bactroban) 1 applic BID TOP Last administered on 07/24/18 11:49; Admin Dose 1 APPLIC; Start 07/21/18 at 21:00 Metronidazole (Flagyl) 500 mg Q8 PO Last administered on 07/24/18 06:31; Admin Dose 500 MG; Start 07/21/18 at 14:00 Sodium Hypochlorite (Dakins Diluted (40)) 1 applic BID TP Last administered on 07/24/18 09:30; Admin Dose 1 APPLIC; Start 07/22/18 at 09:00 Collagenase (Santyl) 1 applic BID TOP Last administered on 07/24/18 09:28; Admin Dose 1 APPLIC; Start 07/22/18 at 09:00 Famotidine (Pepcid Iv) 20 mg BID IV Last administered on 07/24/18 09:48; Admin Dose 20 MG; Start 07/23/18 at 21:00 Epoetin Prince-epbx (Retacrit (Non-Esrd)) 10,000 unit MoWeFr@1700 SC Last admi nistered on 07/23/18at 19:43; Admin Dose 10,000 UNIT; Start 07/23/18 at 18:30 Dextrose 1,000 ml @ 100 mls/hr Q10H IV Last administered on 07/24/18at 03:30; Admin Dose 100 MLS/HR; Start 07/23/18 at 17:30 Norepinephrine 250 ml @ 1.875 mls/ hr TITRATE IV ; Start 07/23/18 at 17:30 Metoclopramide HCl (Reglan) 5 mg TID IV Last administered on 07/24/18at 09:28; Admin Dose 5 MG; Start 07/24/18 at 09:00 REGINALDO CHERY NP Jul 24, 2018 13:22
--- NOTE | 2018-07-24 15:43 | PN ---
Date/Time of Note Date/Time of Note DATE: 07/24/18 TIME: 15:37 Assessment/Plan VTE Prophylaxis Risk score (from Ns)>0 risk: 3 SCD applied (from Ns): Yes Pharmacological prophylaxis: NA/contraindicated Pharm contraindication: bleeding Lines/Catheters IV C[facility] Type [facility]from [facility] PICC Line Central line still needed: Yes Assessment/Plan Hospital Course Patient is n.p.o., continue IV fluids, blood pressure is borderline, pending blood transfusion, continue ICU monitoring. Assessment/Plan -Anemia multifactorial, chronic disease and blood loss. Transfuse 1 unit of packed red blood cells, continue Epogen. -Possible GI bleed, keep n.p.o. continue IV fluids. Dr. Borjas is asked to see patient in gastroenterology consultation. - Ileus versus small bowel obstruction. - Sepsis with shock injury to possible healthcare acquired pneumonia and UTI, continue abx per ID. Dr. Maciel is following in infection disease consultation. - Acute on chronic renal failure. Continue to monitor BUN and creatinine. Dr. Barker is following in nephrology consultation. - Ventilator dependent respiratory failure, continue pulmonary toilet and bronchodilators. Dr Ames is following in pulmonology consultation. - Neurogenic bladder with suprapubic catheter. - Dysphagia with gastrostomy tube. - Multiple decubitus ulcers present on admission. - Cervical spine injury with paraplegia. - Bipolar disorder with psychosis. - Hx of right nephrectomy - Hx of left renal nephrolithiasis, hx of lithotripsy with insertion and subsequent removal of ureteral JJ stent. Further recommendations based on clinical course. Plan of care discussed with Dr. Barreto. Result Diagram: 07/24/18 0430 07/24/18 0430 Results 24hrs Laboratory Tests Test 07/24/18 04:30 07/24/18 09:59 White Blood Count 6.3 # Red Blood Count 2.49 L Hemoglobin 6.8 *L Hematocrit 25.4 L Mean Corpuscular Volume 102.0 H Mean Corpuscular Hemoglobin 27.3 L Mean Corpuscular Hemoglobin Concent 26.8 L Red Cell Distribution Width 19.0 H Platelet Count 97 L Mean Platelet Volume 14.9 H Immature Granulocytes % 0.300 Neutrophils % 87.3 H Segmented Neutrophils % (Manual) 81 H Band Neutrophils % (Manual) 7 H Lymphocytes % 5.9 L Lymphocytes % (Manual) 8 L Monocytes % 6.3 Monocytes % (Manual) 2 Eosinophils % 0.0 Basophils % 0.2 Myelocytes % (Manual) 2 H Nucleated Red Blood Cells % 0.0 Immature Granulocytes # 0.020 Neutrophils # 5.5 Neutrophils # (Manual) 5.1 Band Neutrophils # 0.4 Lymphocytes (Manual) 0.5 L Lymphocytes # 0.4 L Monocytes # 0.4 Monocytes # (Manual) 0.1 L Eosinophils # 0.0 Basophils # 0.0 Myelocytes # 0.1 H Nucleated Red Blood Cells # 0.0 Platelet Estimate DECREASED Polychromasia 1+ Hypochromasia 1+ Poikilocytosis 1+ Anisocytosis 2+ Microcytosis 1+ Ovalocytes 1+ Sodium Level 147 H Potassium Level 3.3 L Chloride Level 115 H Carbon Dioxide Level 21 Anion Gap 11 Blood Urea Nitrogen 103 H Creatinine 2.24 H Est Glomerular Filtrat Rate mL/min 32 L Glucose Level 113 Calcium Level 8.3 L Absolute Reticulocyte Count 0.048 Percent Reticulocyte Count 2.0 H Iron Level < 10 L Total Iron Binding Capacity 122 L Percent Iron Saturation Ferritin 515.0 H Vitamin B12 Level > 1000 H Folate > 20.0 H Exam/Review of Systems Exam Vitals Vital Signs Date Temp Pulse Resp B/P (MAP) Pulse Ox O2 O2 Flow FiO2 Time Delivery Rate 07/24/18 73 20 91/52 (65) 94 13:30 07/24/18 97.9 12:00 07/24/18 50 05:30 07/23/18 Mechanical 20:00 Ventilator Intake and Output 07/23/18 07/23/18 07/24/18 1515:00 23:00 07:00 IntakeIntake Total 300 ml 854.5 ml 700 ml OutputOutput Total 400 ml 315 ml 230 ml BalanceBalance -100 ml 539.5 ml 470 ml Exam Constitutional: alert, awake Neck: supple, other (Tracheostomy) Respiratory: diminished breath sounds Cardiovascular: regular rate and rhythm Gastrointestinal: soft, non-tender, other (G-tube) Genitourinary - Male: other (Suprapubic catheter) Extremities: normal pulses, other (Contracted) Neurological: other (Paraplegia) Skin: other (Multiple wounds) Results Results 24hrs Laboratory Tests Test 07/24/18 04:30 07/24/18 09:59 White Blood Count 6.3 # Red Blood Count 2.49 L Hemoglobin 6.8 *L Hematocrit 25.4 L Mean Corpuscular Volume 102.0 H Mean Corpuscular Hemoglobin 27.3 L Mean Corpuscular Hemoglobin Concent 26.8 L Red Cell Distribution Width 19.0 H Platelet Count 97 L Mean Platelet Volume 14.9 H Immature Granulocytes % 0.300 Neutrophils % 87.3 H Segmented Neutrophils % (Manual) 81 H Band Neutrophils % (Manual) 7 H Lymphocytes % 5.9 L Lymphocytes % (Manual) 8 L Monocytes % 6.3 Monocytes % (Manual) 2 Eosinophils % 0.0 Basophils % 0.2 Myelocytes % (Manual) 2 H Nucleated Red Blood Cells % 0.0 Immature Granulocytes # 0.020 Neutrophils # 5.5 Neutrophils # (Manual) 5.1 Band Neutrophils # 0.4 Lymphocytes (Manual) 0.5 L Lymphocytes # 0.4 L Monocytes # 0.4 Monocytes # (Manual) 0.1 L Eosinophils # 0.0 Basophils # 0.0 Myelocytes # 0.1 H Nucleated Red Blood Cells # 0.0 Platelet Estimate DECREASED Polychromasia 1+ Hypochromasia 1+ Poikilocytosis 1+ Anisocytosis 2+ Microcytosis 1+ Ovalocytes 1+ Sodium Level 147 H Potassium Level 3.3 L Chloride Level 115 H Carbon Dioxide Level 21 Anion Gap 11 Blood Urea Nitrogen 103 H Creatinine 2.24 H Est Glomerular Filtrat Rate mL/min 32 L Glucose Level 113 Calcium Level 8.3 L Absolute Reticulocyte Count 0.048 Percent Reticulocyte Count 2.0 H Iron Level < 10 L Total Iron Binding Capacity 122 L Percent Iron Saturation Ferritin 515.0 H Vitamin B12 Level > 1000 H Folate > 20.0 H Medications Medication Current Medications Bisacodyl (Dulcolax Supp) 10 mg DAILY SC Last administered on 07/22/18at 09:00; Admin Dose 10 MG; Start 07/19/18 at 09:00 Multivitamins Therapeutic (Theragran) 1 tab DAILY GTB Last administered on 07/24/18at 09:29; Admin Dose 1 TAB; Start 07/19/18 at 09:00 Quetiapine Fumarate (Seroquel) 50 mg BID GTB Last administered on 07/24/18at 09:29; Admin Dose 50 MG; Start 07/18/18 at 21:00 Zinc Sulfate (Zinc Sulfate) 220 mg DAILY GTB Last administered on 07/24/18 09:29; Admin Dose 220 MG; Start 07/19/18 at 09:00 IV Flush (NS 3 ml) 3 ml PER PROTOCOL IV ; Start 07/18/18 at 18:30 Ondansetron HCl (Zofran Inj) 4 mg Q6H PRN IV NAUSEA AND/OR VOMITING Last administered on 07/23/18 21:38; Admin Dose 4 MG; Start 07/18/18 at 18:30 Albuterol (Proventil 0.083% (Neb)) 2.5 mg Q2H RESP THERAPY PRN NEB SHORTNESS OF BREATH Last administered on 07/20/18 23:05; Admin Dose 2.5 MG; Start 07/18/18 at 18:30 Ipratropium [place] (Atrovent 0.02% (Neb)) 0.5 mg Q2H RESP THERAPY PRN NEB SHORTNESS OF BREATH Last administered on 07/20/18 03:25; Admin Dose 0.5 MG; Start 07/18/18 at 18:30 Hydromorphone HCl (Dilaudid) 0.5 mg Q4H PRN IV PAIN LEVEL 7-10 Last administered on 07/24/18 13:56; Admin Dose 0.5 MG; Start 07/18/18 at 18:30 Acetaminophen (Tylenol Liquid) 650 mg Q6H PRN GTB PAIN LEVEL 1-3 OR FEVER Last administered on 07/24/18 12:05; Admin Dose 650 MG; Start 07/19/18 at 10:30 Acetaminophen/ Hydrocodone Bitart ([place] (5/325)) 1 tab Q6H PRN GTB PAIN LEVEL 4-6 Last administered on 07/24/18 09:30; Admin Dose 1 TAB; Start 07/19/18 at 12:30 Docusate Sodium (Colace Liquid Cup) 100 mg Q12 PRN GTB CONSTIPATION; Start 07/19/18 at 08:00 Docusate Sodium (Colace Liquid Cup) 100 mg QHS GTB Last administered on 07/23/18 21:26; Admin Dose 100 MG; Start 07/19/18 at 21:00 IV Flush (NS 10 ml) 10 ml PRN PRN IV FLUSH LINE; Start 07/19/18 at 18:30 Levetiracetam (Keppra Liquid) 500 mg Q12 GTB Last administered on 07/24/18 09:28; Admin Dose 500 MG; Start 07/20/18 at 21:00 Gentamicin Sulfate (Gentamicin Iv Per Pharmacy) GENTAMICIN PER PHARMACY NOTE XX ; Start 07/20/18 at 14:00 Gentamicin Sulfate 180 mg/ Sodium Chloride 104.5 ml @ 104.5 mls/ hr Q72H IVPB Last administered on 07/23/18 15:05; Admin Dose 104.5 MLS/HR; Start 07/20/18 at 16:00 Mupirocin (Bactroban) 1 applic BID TOP Last administered on 07/24/18 11:49; Admin Dose 1 APPLIC; Start 07/21/18 at 21:00 Metronidazole (Flagyl) 500 mg Q8 PO Last administered on 07/24/18 13:40; Admin Dose 500 MG; Start 07/21/18 at 14:00 Sodium Hypochlorite (Dakins Diluted ()) 1 applic BID TP Last administered on 07/24/18 09:30; Admin Dose 1 APPLIC; Start 07/22/18 at 09:00 Collagenase (Santyl) 1 applic BID TOP Last administered on 07/24/18 09:28; Admin Dose 1 APPLIC; Start 07/22/18 at 09:00 Famotidine (Pepcid Iv) 20 mg BID IV Last administered on 07/24/18 09:48; Admin Dose 20 MG; Start 07/23/18 at 21:00 Epoetin [place]-epbx (Retacrit (Non-Esrd)) 10,000 unit MoWeFr@1700 SC Last administered on 07/23/18 19:43; Admin Dose 10,000 UNIT; Start 07/23/18 at 18:30 Norepinephrine 250 ml @ 1.875 mls/ hr TITRATE IV ; Start 07/23/18 at 17:30 Metoclopramide HCl (Reglan) 5 mg TID IV Last administered on 07/24/18 13:40; Admin Dose 5 MG; Start 07/24/18 at 09:00 Potassium Chloride/Dextrose 1,000 ml @ 100 mls/hr Q10H IV ; Start 07/24/18 at 15:30 AISSATOU DUNCAN Jul 24, 2018 15:43
[2018-07-24] MEDS: D5W + KCL 20 MEQ 1,000 ML IV SCH ×2 (16:30→23:26)
[2018-07-24] MEDS: DOCUSATE SODIUM 10 MG/ML (10ML CUP) GTB SCH (21:00)
--- NOTE | 2018-07-24 21:07 | PN ---
DATE: 07/24/2018 SUBJECTIVE: The patient is in ICU on the ventilator support. He is awake, responsive. PHYSICAL EXAMINATION: VITAL SIGNS: Show temperature 97.9, blood pressure 92/44, pulse rate 77, respirations 16, pulse oxim etry 97% saturation. HEART: Regular sinus rhythm. CHEST: Breath sounds are diminished in both the lower lung tierney at the lung bases with a few rales and rhonchi. ABDOMEN: Feels more full. Bowel sounds are diminished. EXTREMITIES: Show no edema. He is paraplegic. LABORATORY DATA: Show improvement in renal status. BUN is 103, creatinine is 2.24 even though it is slightly increased from yesterday, sodium 147, potassium 3.3, bicarbonate 21, glucose 113. CBC show s a WBC 6300, hemoglobin 6.8, hematocrit 23.4, platelet count is within normal limits. The chest x-r ay taken yesterday is reported to show increased opacities in the right upper and lower lung tierney w hich may represent pulmonary vascular congestion, infiltrate or aspiration. There are also small sawyer ateral pleural effusions, larger on the right. IMPRESSION: 1. Sepsis. 2. Chronic ventilator dependent respiratory failure. 3. Chronic kidney disease with acute kidney injury. 4. Chronic anemia. 5. History of nephrolithiasis, status post right nephrectomy. 6. 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 7. History of bipolar disorder. RECOMMENDATIONS: 1. Continue long-term ventilator support. 2. Continue antibiotics. 3. Continue bronchodilator inhalation therapy. 4. Continue hydration. 5. Continue supportive therapy. Dictated By: HUMBERTO PEREZ MD SR/NTS Conf#: [id number] DID#: [id number] CC: JOSÉ ANTONIO MIRZA MD;*EndCC*
[2018-07-25] VITALS (32 sets, daily range): BP systolic 90–129; BP diastolic 50–81; PULSE 74–101; RESP 17–28
[2018-07-25] MEDS: HYDROmorphONE 0.5 MG/0.5 ML SYG IV PRN ×5 (04:07→22:17)
[2018-07-25] MEDS: metroNIDAZOLE 500 MG TAB PO SCH ×3 (05:59→21:23)
[2018-07-25] MEDS: D5W + KCL 20 MEQ 1,000 ML IV SCH ×2 (08:08→18:36)
[2018-07-25] MEDS: COLLAGENASE 5 GM (UD JAR) TOP SCH ×2 (08:08→21:24)
[2018-07-25] MEDS: ZINC SULFATE 220 MG CAP GTB SCH (08:09)
[2018-07-25] MEDS: BISACODYL 10 MG SUPP PR SCH (08:09)
[2018-07-25] MEDS: METOCLOPRAMIDE 10 MG INJ IV SCH ×3 (08:09→21:23)
[2018-07-25] MEDS: LEVETIRACETAM (100 MG/ML) 5ML CUP GTB SCH ×2 (08:09→21:23)
[2018-07-25] MEDS: MUPIROCIN 2% 22 GM OINT TOP SCH ×2 (08:09→21:24)
[2018-07-25] MEDS: QUETIAPINE 25 MG TAB GTB SCH ×2 (08:09→21:23)
[2018-07-25] MEDS: MULTIVITAMINS THERAPEUTIC TAB GTB SCH (08:09)
[2018-07-25] MEDS: DAKINS 0.0125%(1/40) 473 ML SOLUTION TP SCH ×2 (08:10→21:24)
[2018-07-25] MEDS: BALSAM PERU/CASTOR OIL 60 GM TUBE TOP SCH ×2 (08:10→21:00)
[2018-07-25] MEDS: FAMOTIDINE 20 MG INJ IV SCH ×2 (08:52→21:23)
--- NOTE | 2018-07-25 12:11 | CONS ---
Assessment/Plan Assessment/Plan Hospital Course (Demo Recall) No acute events overnight patient looks comfortable no fevers WBC 5.7 neutrophils 87.1 BUN 89 creatinine 2.05 Abdominal x-ray revealed interval decrease in gaseous distention of bowel subjective of improving ileus or small bowel obstruction Antimicrobials: Gentamicin, Flagyl Microbiology: Urine culture grew Acinetobacter susceptible to gentamicin tobramycin and Bactrim, blood cultures negative Allergies: Tetracyclines Indwelling: Trach, PEG, PICC line, suprapubic catheter CT abdomen pelvis revealed bibasilar atelectasis and small effusions. Small ascites. Left hydroureter due to multiple small 2 mm stones in the course of the ureter cannot rule out pyelonephritis. Gastrostomy tube in the distended stomach. Physical examination: Chronically ill-appearing wasted middle-aged man who is awake in no distress. Head atraumatic normocephalic sclera nonicteric vehicle mucosa dry neck is supple tracheostomy present chest rise symmetrical breath sounds diminished the bases. Heart: S1-S2. Abdomen soft bowel sounds present. Extremities wasted contractured Assessment: 1. Resolving sepsis, s/p shock 2. Recurrent UTI/acute pyelonephritis 3. Acute on chronic respiratory failure ?PNA 4. Acute on chronic kidney disease 5. Incomplete quadriplegia 6. Anemia and thrombocytopenia 7. History of left breast nephrectomy 8. Multiple chronic decubitus ulcers 9. Diarrhea, rule out C. difficile 10. MRSA colonization of the naris Plan: Remains unchanged, continue antibiotics, pending telemetry transfer Consultation Date/Type/Reason Admit Date/Time Jul 18, 2018 at 13:59 Initial Consult Date 07/18/18 Type of Consult id Requesting Provider: JOSÉ ANTONIO MIRZA MD Date/Time of Note DATE: 07/25/18 TIME: 12:10 Exam/Review of Systems Exam Vitals Vital Signs Date Temp Pulse Resp B/P (MAP) Pulse Ox O2 O2 Flow FiO2 Time Delivery Rate 07/25/18 98.4 94 23 104/63 94 12:00 (77) 07/25/18 Mechanical 08:00 Ventilator 07/25/18 40 05:20 Intake and Output 07/24/18 07/24/18 07/25/18 1515:00 23:00 07:00 IntakeIntake Total 1100 ml 550 ml 1095 ml OutputOutput Total 195 ml 95 ml 390 ml BalanceBalance 905 ml 455 ml 705 ml Results Result Diagram: 07/25/18 0415 07/25/18 0415 Results 24hrs Laboratory Tests Test 07/24/18 21:07 07/25/18 04:15 07/25/18 04:49 White Blood Count 6.9 5.7 Red Blood Count 2.83 L 2.97 L Hemoglobin 7.9 L 8.1 L Hematocrit 27.9 L 28.9 L Mean Corpuscular Volume 98.6 97.3 Mean Corpuscular Hemoglobin 27.9 L 27.3 L Mean Corpuscular 28.3 L 28.0 L Hemoglobin Concent Red Cell Distribution Width 19.6 H 20.2 H Platelet Count 104 L 109 L Mean Platelet Volume 14.2 H Immature Granulocytes % 0.300 0.200 Neutrophils % 89.8 H 87.1 H Lymphocytes % 3.2 L 4.5 L Monocytes % 5.4 6.3 Eosinophils % 1.2 1.7 Basophils % 0.1 0.2 Nucleated Red Blood Cells % 0.0 0.0 Immature Granulocytes # 0.020 0.010 Neutrophils # 6.2 5.0 Lymphocytes # 0.2 L 0.3 L Monocytes # 0.4 0.4 Eosinophils # 0.1 0.1 Basophils # 0.0 0.0 Nucleated Red Blood Cells # 0.0 0.0 Sodium Level 143 Potassium Level 3.6 Chloride Level 113 H Carbon Dioxide Level 20 L Anion Gap 10 Blood Urea Nitrogen 89 H Creatinine 2.05 H Est Glomerular Filtrat 36 L Rate mL/min Glucose Level 106 Calcium Level 8.3 L Lab Scanned Report BLOOD TRANSFUSION Medications Medication Current Medications Bisacodyl (Dulcolax Supp) 10 mg DAILY [place] Last administered on 07/25/18at 08:09; Admin Dose 10 MG; Start 07/19/18 at 09:00 Multivitamins Therapeutic (Theragran) 1 tab DAILY GTB Last administered on 07/25/18at 08:09; Admin Dose 1 TAB; Start 07/19/18 at 09:00 Quetiapine Fumarate (Seroquel) 50 mg BID GTB Last administered on 07/25/18at 08:09; Admin Dose 50 MG; Start 07/18/18 at 21:00 Zinc Sulfate (Zinc Sulfate) 220 mg DAILY GTB Last administered on 07/25/18at 08:09; Admin Dose 220 MG; Start 07/19/18 at 09:00 IV Flush (NS 3 ml) 3 ml PER PROTOCOL IV ; Start 07/18/18 at 18:30 Ondansetron HCl (Zofran Inj) 4 mg Q6H PRN IV NAUSEA AND/OR VOMITING Last administered on 07/23/18 21:38; Admin Dose 4 MG; Start 07/18/18 at 18:30 Albuterol (Proventil 0.083% (Neb)) 2.5 mg Q2H RESP THERAPY PRN NEB SHORTNESS OF BREATH Last administered on 07/20/18 23:05; Admin Dose 2.5 MG; Start 07/18/18 at 18:30 Ipratropium [place] (Atrovent 0.02% (Neb)) 0.5 mg Q2H RESP THERAPY PRN NEB SHORTNESS OF BREATH Last administered on 07/20/18 03:25; Admin Dose 0.5 MG; Start 07/18/18 at 18:30 Hydromorphone HCl (Dilaudid) 0.5 mg Q4H PRN IV PAIN LEVEL 7-10 Last administered on 07/25/18 08:08; Admin Dose 0.5 MG; Start 07/18/18 at 18:30 Acetaminophen (Tylenol Liquid) 650 mg Q6H PRN GTB PAIN LEVEL 1-3 OR FEVER Last administered on 07/24/18 12:05; Admin Dose 650 MG; Start 07/19/18 at 10:30 Acetaminophen/ Hydrocodone Bitart ([place] (5/325)) 1 tab Q6H PRN GTB PAIN LEVEL 4-6 Last administered on 07/24/18 21:09; Admin Dose 1 TAB; Start 07/19/18 at 12:30 Docusate Sodium (Colace Liquid Cup) 100 mg Q12 PRN GTB CONSTIPATION; Start 07/19/18 at 08:00 Docusate Sodium (Colace Liquid Cup) 100 mg QHS GTB Last administered on 07/23/18 21:26; Admin Dose 100 MG; Start 07/19/18 at 21:00 IV Flush (NS 10 ml) 10 ml PRN PRN IV FLUSH LINE; Start 07/19/18 at 18:30 Levetiracetam (Keppra Liquid) 500 mg Q12 GTB Last administered on 07/25/18 08:09; Admin Dose 500 MG; Start 07/20/18 at 21:00 Gentamicin Sulfate (Gentamicin Iv Per Pharmacy) GENTAMICIN PER PHARMACY NOTE XX ; Start 07/20/18 at 14:00 Gentamicin Sulfate 180 mg/ Sodium Chloride 104.5 ml @ 104.5 mls/ hr Q72H IVPB Last administered on 07/23/18 15:05; Admin Dose 104.5 MLS/HR; Start 07/20/18 at 16:00 Mupirocin (Bactroban) 1 applic BID TOP Last administered on 07/25/18 08:09; Admin Dose 1 APPLIC; Start 07/21/18 at 21:00 Metronidazole (Flagyl) 500 mg Q8 PO Last administered on 07/25/18 05:59; Admin Dose 500 MG; Start 07/21/18 at 14:00 Sodium Hypochlorite (Dakins Diluted (40)) 1 applic BID TP Last administered on 07/25/18 08:10; Admin Dose 1 APPLIC; Start 07/22/18 at 09:00 Collagenase (Santyl) 1 applic BID TOP Last administered on 07/25/18 08:08; Admin Dose 1 APPLIC; Start 07/22/18 at 09:00 Famotidine (Pepcid Iv) 20 mg BID IV Last administered on 07/25/18 08:52; Admin Dose 20 MG; Start 07/23/18 at 21:00 Epoetin Prince-epbx (Retacrit (Non-Esrd)) 10,000 unit MoWeFr@1700 SC Last administered on 07/23/18 19:43; Admin Dose 10,000 UNIT; Start 07/23/18 at 18:30 Norepinephrine 250 ml @ 1.875 mls/ hr TITRATE IV ; Start 07/23/18 at 17:30 Metoclopramide HCl (Reglan) 5 mg TID IV Last administered on 07/25/18 08:09; Admin Dose 5 MG; Start 07/24/18 at 09:00 Potassium Chloride/Dextrose 1,000 ml @ 125 mls/hr Q8H IV Last administered on 07/25/18 08:08; Admin Dose 125 MLS/HR; Start 07/24/18 at 15:30 REGINALDO CHERY NP Jul 25, 2018 12:11
--- NOTE | 2018-07-25 14:01 | CONS ---
Assessment/Plan Assessment/Plan Assessment/Plan (Daily) - Hypokalemia- resolved - Anemia- Hgb 8.1 today; pending 1 unit PRBC today 1. Acute Renal failure with severe Uremia, BUN trended down to 114 today 2. Septic shock on Levophed due to PNA and UTI 3. PNA concerned about HCAP 4. UTI 5. 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 ventilator dependent respiratory failure with tracheostomy 7. dysphagia with G-tube 8. chronic kidney disease III 9. history of right nephrectomy 10. left renal nephrolithiasis 11. bipolar disorder Plan: BP still labile IV abx for Septic shock, Renally dose all abx and monitor electrolytes continue IVF NS at 100 cc/hr SP IV albumin 25% 100ml Q 8 hr x 3 doses pt is currently severely dry, will continue IVF NS at 100 cc/ hr We will continue to follow up Critical care time spent is 30 minutes.Patient seen in collaboration with Dr Paul Barker. dw staff Consultation Date/Type/Reason Admit Date/Time Jul 18, 2018 at 13:59 Initial Consult Date 07/18/18 Type of Consult Nephrology Requesting Provider: JOSÉ ANTONIO MIRZA MD Date/Time of Note DATE: 07/25/18 TIME: 13:59 24 HR Interval Summary Free Text/Dictation BUN / Cr trended to 89/ 2.05 today no coffee ground emesis reported today Hgb 8. 1 today- sp 1 unit PRBC dw staff Subjective hx not possible: pt non-verbal, pt critical Constitutional: requiring IVF, requiring O2 Exam/Review of Systems Exam Vitals Vital Signs Date Temp Pulse Resp B/P (MAP) Pulse Ox O2 O2 Flow FiO2 Time Delivery Rate 07/25/18 96 12:00 07/25/18 98.4 23 104/63 94 12:00 (77) 07/25/18 Mechanical 08:00 Ventilator 07/25/18 40 05:20 Intake and Output 07/24/18 07/24/18 07/25/18 1515:00 23:00 07:00 IntakeIntake Total 1100 ml 550 ml 1095 ml OutputOutput Total 195 ml 95 ml 390 ml BalanceBalance 905 ml 455 ml 705 ml Constitutional: well developed, non-verbal, frail Eyes: nl lids, nl sclera ENMT: nl external ears & nose Neck: other (trach intact) Respiratory: clear to auscultation Cardiovascular: nl pulses, other (s1s2) Gastrointestinal: soft, non-tender, other (gt intact) Musculoskeletal: muscle weakness, range of motion Extremities: normal pulses Neurological: confused Skin: other (decubs) Results Result Diagram: 07/25/18 0415 07/25/18 0415 Results 24hrs Laboratory Tests Test 07/24/18 21:07 07/25/18 04:15 07/25/18 04:49 White Blood Count 6.9 5.7 Red Blood Count 2.83 L 2.97 L Hemoglobin 7.9 L 8.1 L Hematocrit 27.9 L 28.9 L Mean Corpuscular Volume 98.6 97.3 Mean Corpuscular Hemoglobin 27.9 L 27.3 L Mean Corpuscular 28.3 L 28.0 L Hemoglobin Concent Red Cell Distribution Width 19.6 H 20.2 H Platelet Count 104 L 109 L Mean Platelet Volume 14.2 H Immature Granulocytes % 0.300 0.200 Neutrophils % 89.8 H 87.1 H Lymphocytes % 3.2 L 4.5 L Monocytes % 5.4 6.3 Eosinophils % 1.2 1.7 Basophils % 0.1 0.2 Nucleated Red Blood Cells % 0.0 0.0 Immature Granulocytes # 0.020 0.010 Neutrophils # 6.2 5.0 Lymphocytes # 0.2 L 0.3 L Monocytes # 0.4 0.4 Eosinophils # 0.1 0.1 Basophils # 0.0 0.0 Nucleated Red Blood Cells # 0.0 0.0 Sodium Level 143 Potassium Level 3.6 Chloride Level 113 H Carbon Dioxide Level 20 L Anion Gap 10 Blood Urea Nitrogen 89 H Creatinine 2.05 H Est Glomerular Filtrat 36 L Rate mL/min Glucose Level 106 Calcium Level 8.3 L Lab Scanned Report BLOOD TRANSFUSION Medications Medication Current Medications Bisacodyl (Dulcolax Supp) 10 mg DAILY [place] Last administered on 07/25/18at 08:09; Admin Dose 10 MG; Start 07/19/18 at 09:00 Multivitamins Therapeutic (Theragran) 1 tab DAILY GTB Last administered on 07/25/18at 08:09; Admin Dose 1 TAB; Start 07/19/18 at 09:00 Quetiapine Fumarate (Seroquel) 50 mg BID GTB Last administered on 07/25/18at 08:09; Admin Dose 50 MG; Start 07/18/18 at 21:00 Zinc Sulfate (Zinc Sulfate) 220 mg DAILY GTB Last administered on 07/25/18 08:09; Admin Dose 220 MG; Start 07/19/18 at 09:00 IV Flush (NS 3 ml) 3 ml PER PROTOCOL IV ; Start 07/18/18 at 18:30 Ondansetron HCl (Zofran Inj) 4 mg Q6H PRN IV NAUSEA AND/OR VOMITING Last administered on 07/23/18 21:38; Admin Dose 4 MG; Start 07/18/18 at 18:30 Albuterol (Proventil 0.083% (Neb)) 2.5 mg Q2H RESP THERAPY PRN NEB SHORTNESS OF BREATH Last administered on 07/20/18 23:05; Admin Dose 2.5 MG; Start 07/18/18 at 18:30 Ipratropium [place] (Atrovent 0.02% (Neb)) 0.5 mg Q2H RESP THERAPY PRN NEB SHORTNESS OF BREATH Last administered on 07/20/18 03:25; Admin Dose 0.5 MG; Start 07/18/18 at 18:30 Hydromorphone HCl (Dilaudid) 0.5 mg Q4H PRN IV PAIN LEVEL 7-10 Last admin istered on 07/25/18 12:19; Admin Dose 0.5 MG; Start 07/18/18 at 18:30 Acetaminophen (Tylenol Liquid) 650 mg Q6H PRN GTB PAIN LEVEL 1-3 OR FEVER Last administered on 07/24/18 12:05; Admin Dose 650 MG; Start 07/19/18 at 10:30 Acetaminophen/ Hydrocodone Bitart ([place] (5/325)) 1 tab Q6H PRN GTB PAIN LEVEL 4-6 Last administered on 07/24/18 21:09; Admin Dose 1 TAB; Start 07/19/18 at 12:30 Docusate Sodium (Colace Liquid Cup) 100 mg Q12 PRN GTB CONSTIPATION; Start 07/19/18 at 08:00 Docusate Sodium (Colace Liquid Cup) 100 mg QHS GTB Last administered on 07/23/18 21:26; Admin Dose 100 MG; Start 07/19/18 at 21:00 IV Flush (NS 10 ml) 10 ml PRN PRN IV FLUSH LINE; Start 07/19/18 at 18:30 Levetiracetam (Keppra Liquid) 500 mg Q12 GTB Last administered on 07/25/18 08:09; Admin Dose 500 MG; Start 07/20/18 at 21:00 Gentamicin Sulfate (Gentamicin Iv Per Pharmacy) GENTAMICIN PER PHARMACY NOTE XX ; Start 07/20/18 at 14:00 Gentamicin Sulfate 180 mg/ Sodium Chloride 104.5 ml @ 104.5 mls/ hr Q72H IVPB Last administered on 07/23/18 15:05; Admin Dose 104.5 MLS/HR; Start 07/20/18 at 16:00 Mupirocin (Bactroban) 1 applic BID TOP Last administered on 07/25/18 08:09; Admin Dose 1 APPLIC; Start 07/21/18 at 21:00 Metronidazole (Flagyl) 500 mg Q8 PO Last administered on 07/25/18 05:59; Admin Dose 500 MG; Start 07/21/18 at 14:00 Sodium Hypochlorite (Dakins Diluted (1/40)) 1 applic BID TP Last administered on 07/25/18 08:10; Admin Dose 1 APPLIC; Start 07/22/18 at 09:00 Collagenase (Santyl) 1 applic BID TOP Last administered on 07/25/18 08:08; Admin Dose 1 APPLIC; Start 07/22/18 at 09:00 Famotidine (Pepcid Iv) 20 mg BID IV Last administered on 07/25/18 08:52; Admin Dose 20 MG; Start 07/23/18 at 21:00 Epoetin [place]-epbx (Retacrit (Non-Esrd)) 10,000 unit MoWeFr@1700 SC Last administered on 07/23/18 19:43; Admin Dose 10,000 UNIT; Start 07/23/18 at 18:30 Norepinephrine 250 ml @ 1.875 mls/ hr TITRATE IV ; Start 07/23/18 at 17:30 Metoclopramide HCl (Reglan) 5 mg TID IV Last administered on 07/25/18at 12:19; Admin Dose 5 MG; Start 07/24/18 at 09:00 Potassium Chloride/Dextrose 1,000 ml @ 125 mls/hr Q8H IV Last administered on 07/25/18at 08:08; Admin Dose 125 MLS/HR; Start 07/24/18 at 15:30 Miscellaneous Information (*Rx Drug Level Order Reminder*) GENTAMICIN TR 07/26 AT 1... 1400 ONCE XX ; Start 07/26/18 at 14:00; Stop 07/26/18 at 14:01 Miscellaneous Information (*Rx Drug Level Order Reminder*) GENTAMICIN PEAK 07/26 AT 1... 1630 ONCE XX ; Start 07/26/18 at 16:30; Stop 07/26/18 at 16:31 NAE VELAZCO Jul 25, 2018 14:01
[2018-07-25] MEDS: HYDROCODONE/APAP (5/325) TAB GTB PRN (14:29)
--- NOTE | 2018-07-25 14:59 | PN ---
Date/Time of Note Date/Time of Note DATE: 07/25/18 TIME: 14:53 Assessment/Plan VTE Prophylaxis Risk score (from [facility])>0 risk: 9 SCD applied (from [facility]): Yes Pharmacological prophylaxis: NA/contraindicated Pharm contraindication: bleeding Lines/Catheters IV Catheter Type (from [facility]): PICC Line Central line still needed: Yes Assessment/Plan Hospital Course Patient is s/p blood transfusion, Hgb is 8.1, continue IVF. KUB noted. Advance GT feeding per GI recs. Assessment/Plan - Anemia multifactorial, chronic disease and blood loss. S/p blood transfusion, continue Epogen. - Possible GI bleed. Dr. Borjas is following in gastroenterology consultation. - Ileus versus small bowel obstruction. - Sepsis with shock injury to possible healthcare acquired pneumonia and UTI, continue abx per ID. Dr. Maciel is following in infection disease consultation. - Acute on chronic renal failure. Continue to monitor BUN and creatinine. Dr. Barker is following in nephrology consultation. - Ventilator dependent respiratory failure, continue pulmonary toilet and bronchodilators. Dr Ames is following in pulmonology consultation. - Neurogenic bladder with suprapubic catheter. - Dysphagia with gastrostomy tube. - Multiple decubitus ulcers present on admission. - Cervical spine injury with paraplegia. - Bipolar disorder with psychosis. - Hx of right nephrectomy - Hx of left renal nephrolithiasis, hx of lithotripsy with insertion and subsequent removal of ureteral JJ stent. Further recommendations based on clinical course. Plan of care discussed with Dr. Barreto. Result Diagram: 07/25/18 0415 07/25/18 0415 Results 24hrs Laboratory Tests Test 07/24/18 21:07 07/25/18 04:15 07/25/18 04:49 White Blood Count 6.9 5.7 Red Blood Count 2.83 L 2.97 L Hemoglobin 7.9 L 8.1 L Hematocrit 27.9 L 28.9 L Mean Corpuscular Volume 98.6 97.3 Mean Corpuscular Hemoglobin 27.9 L 27.3 L Mean Corpuscular 28.3 L 28.0 L Hemoglobin Concent Red Cell Distribution Width 19.6 H 20.2 H Platelet Count 104 L 109 L Mean Platelet Volume 14.2 H Immature Granulocytes % 0.300 0.200 Neutrophils % 89.8 H 87.1 H Lymphocytes % 3.2 L 4.5 L Monocytes % 5.4 6.3 Eosinophils % 1.2 1.7 Basophils % 0.1 0.2 Nucleated Red Blood Cells % 0.0 0.0 Immature Granulocytes # 0.020 0.010 Neutrophils # 6.2 5.0 Lymphocytes # 0.2 L 0.3 L Monocytes # 0.4 0.4 Eosinophils # 0.1 0.1 Basophils # 0.0 0.0 Nucleated Red Blood Cells # 0.0 0.0 Sodium Level 143 Potassium Level 3.6 Chloride Level 113 H Carbon Dioxide Level 20 L Anion Gap 10 Blood Urea Nitrogen 89 H Creatinine 2.05 H Est Glomerular Filtrat 36 L Rate mL/min Glucose Level 106 Calcium Level 8.3 L Lab Scanned Report BLOOD TRANSFUSION Exam/Review of Systems Exam Vitals Vital Signs Date Temp Pulse Resp B/P (MAP) Pulse Ox O2 O2 Flow FiO2 Time Delivery Rate 07/25/18 96 12:00 07/25/18 98.4 23 104/63 94 12:00 (77) 07/25/18 Mechanical 08:00 Ventilator 07/25/18 40 05:20 Intake and Output 07/24/18 07/24/18 07/25/18 1515:00 23:00 07:00 IntakeIntake Total 1100 ml 550 ml 1095 ml OutputOutput Total 195 ml 95 ml 390 ml BalanceBalance 905 ml 455 ml 705 ml Exam Constitutional: alert, awake Neck: supple, other (Tracheostomy) Respiratory: diminished breath sounds Cardiovascular: regular rate and rhythm Gastrointestinal: soft, non-tender, other (G-tube) Genitourinary - Male: other (Suprapubic catheter) Extremities: normal pulses, other (Contracted) Neurological: other (Paraplegia) Skin: other (Multiple wounds) Results Results 24hrs Laboratory Tests Test 07/24/18 21:07 07/25/18 04:15 07/25/18 04:49 White Blood Count 6.9 5.7 Red Blood Count 2.83 L 2.97 L Hemoglobin 7.9 L 8.1 L Hematocrit 27.9 L 28.9 L Mean Corpuscular Volume 98.6 97.3 Mean Corpuscular Hemoglobin 27.9 L 27.3 L Mean Corpuscular 28.3 L 28.0 L Hemoglobin Concent Red Cell Distribution Width 19.6 H 20.2 H Platelet Count 104 L 109 L Mean Platelet Volume 14.2 H Immature Granulocytes % 0.300 0.200 Neutrophils % 89.8 H 87.1 H Lymphocytes % 3.2 L 4.5 L Monocytes % 5.4 6.3 Eosinophils % 1.2 1.7 Basophils % 0.1 0.2 Nucleated Red Blood Cells % 0.0 0.0 Immature Granulocytes # 0.020 0.010 Neutrophils # 6.2 5.0 Lymphocytes # 0.2 L 0.3 L Monocytes # 0.4 0.4 Eosinophils # 0.1 0.1 Basophils # 0.0 0.0 Nucleated Red Blood Cells # 0.0 0.0 Sodium Level 143 Potassium Level 3.6 Chloride Level 113 H Carbon Dioxide Level 20 L Anion Gap 10 Blood Urea Nitrogen 89 H Creatinine 2.05 H Est Glomerular Filtrat 36 L Rate mL/min Glucose Level 106 Calcium Level 8.3 L Lab Scanned Report BLOOD TRANSFUSION Medications Medication Current Medications Bisacodyl (Dulcolax Supp) 10 mg DAILY [place] Last administered on 07/25/18 08:09; Admin Dose 10 MG; Start 07/19/18 at 09:00 Multivitamins Therapeutic (Theragran) 1 tab DAILY GTB Last administered on 07/25/18 08:09; Admin Dose 1 TAB; Start 07/19/18 at 09:00 Quetiapine Fumarate (Seroquel) 50 mg BID GTB Last administered on 07/25/18 08:09; Admin Dose 50 MG; Start 07/18/18 at 21:00 Zinc Sulfate (Zinc Sulfate) 220 mg DAILY GTB Last administered on 07/25/18 08:09; Admin Dose 220 MG; Start 07/19/18 at 09:00 IV Flush (NS 3 ml) 3 ml PER PROTOCOL IV ; Start 07/18/18 at 18:30 Ondansetron HCl (Zofran Inj) 4 mg Q6H PRN IV NAUSEA AND/OR VOMITING Last administered on 07/23/18 21:38; Admin Dose 4 MG; Start 07/18/18 at 18:30 Albuterol (Proventil 0.083% (Neb)) 2.5 mg Q2H RESP THERAPY PRN NEB SHORTNESS OF BREATH Last administered on 07/20/18at 23:05; Admin Dose 2.5 MG; Start 07/18/18 at 18:30 Ipratropium [place] (Atrovent 0.02% (Neb)) 0.5 mg Q2H RESP THERAPY PRN NEB SHORTNESS OF BREATH Last administered on 07/20/18 03:25; Admin Dose 0.5 MG; Start 07/18/18 at 18:30 Hydromorphone HCl (Dilaudid) 0.5 mg Q4H PRN IV PAIN LEVEL 7-10 Last administered on 07/25/18 12:19; Admin Dose 0.5 MG; Start 07/18/18 at 18:30 Acetaminophen (Tylenol Liquid) 650 mg Q6H PRN GTB PAIN LEVEL 1-3 OR FEVER Last administered on 07/24/18 12:05; Admin Dose 650 MG; Start 07/19/18 at 10:30 Acetaminophen/ Hydrocodone Bitart ([place] (5/325)) 1 tab Q6H PRN GTB PAIN LEVEL 4-6 Last administered on 07/25/18 14:29; Admin Dose 1 TAB; Start 07/19/18 at 12:30 Docusate Sodium (Colace Liquid Cup) 100 mg Q12 PRN GTB CONSTIPATION; Start 07/19/18 at 08:00 Docusate Sodium (Colace Liquid Cup) 100 mg QHS GTB Last administered on 07/23/18 21:26; Admin Dose 100 MG; Start 07/19/18 at 21:00 IV Flush (NS 10 ml) 10 ml PRN PRN IV FLUSH LINE; Start 07/19/18 at 18:30 Levetiracetam (Keppra Liquid) 500 mg Q12 GTB Last administered on 07/25/18 08:09; Admin Dose 500 MG; Start 07/20/18 at 21:00 Gentamicin Sulfate (Gentamicin Iv Per Pharmacy) GENTAMICIN PER PHARMACY NOTE XX ; Start 07/20/18 at 14:00 Gentamicin Sulfate 180 mg/ Sodium Chloride 104.5 ml @ 104.5 mls/ hr Q72H IVPB Last administered on 07/23/18 15:05; Admin Dose 104.5 MLS/HR; Start 07/20/18 at 16:00 Mupirocin (Bactroban) 1 applic BID TOP Last administered on 07/25/18 08:09; Admin Dose 1 APPLIC; Start 07/21/18 at 21:00 Metronidazole (Flagyl) 500 mg Q8 PO Last administered on 07/25/18at 14:22; Admin Dose 500 MG; Start 07/21/18 at 14:00 Sodium Hypochlorite (Dakins Diluted ()) 1 applic BID TP Last administered on 07/25/18at 08:10; Admin Dose 1 APPLIC; Start 07/22/18 at 09:00 Collagenase (Santyl) 1 applic BID TOP Last administered on 07/25/18at 08:08; Admin Dose 1 APPLIC; Start 07/22/18 at 09:00 Famotidine (Pepcid Iv) 20 mg BID IV Last administered on 07/25/18 08:52; Admin Dose 20 MG; Start 07/23/18 at 21:00 Epoetin Prince-epbx (Retacrit (Non-Esrd)) 10,000 unit MoWeFr@1700 SC Last a dministered on 07/23/18at 19:43; Admin Dose 10,000 UNIT; Start 07/23/18 at 18:30 Norepinephrine 250 ml @ 1.875 mls/ hr TITRATE IV ; Start 07/23/18 at 17:30 Metoclopramide HCl (Reglan) 5 mg TID IV Last administered on 07/25/18at 12:19; Admin Dose 5 MG; Start 07/24/18 at 09:00 Potassium Chloride/Dextrose 1,000 ml @ 125 mls/hr Q8H IV Last administered on 07/25/18 08:08; Admin Dose 125 MLS/HR; Start 07/24/18 at 15:30 Miscellaneous Information (*Rx Drug Level Order Reminder*) GENTAMICIN TR 6/20 AT 1... 1400 ONCE XX ; Start 07/26/18 at 14:00; Stop 07/26/18 at 14:01 Miscellaneous Information (*Rx Drug Level Order Reminder*) GENTAMICIN PEAK 6/20 AT 1... 1630 ONCE XX ; Start 07/26/18 at 16:30; Stop 07/26/18 at 16:31 AISSATOU DUNCAN Jul 25, 2018 14:59
--- NOTE | 2018-07-25 16:46 | CONS ---
Assessment/Plan Assessment/Plan Assessment/Plan (Daily) pital Course (Demo Recall) 42 year old paraplegic male presents from [facility] for sepsis secondary to pnuemonia and UTI was found to ileus vs SBO on KUB with one episode of coffee ground vomit. 1. Ileus vs SBO clinically resolved the patient is tolerating feeding 2. Anemia, acute on chronic recent is status post 1 unit of packed cell RBC transfusion 3. Acute on chronic renal failure -h/o rt nephrectomy 4. Sepsis secondary to pnuemonia and UTI 5. Pneumonia 6. UTI -Acinetobacter Baumannii 7. 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 Vent dependent respiratory failure 9. Dysphagia, s/p g tube 10. Bipolar disorder Plan Continue Pepcid Continue Reglan Increase feeding to 30 cc/h Consultation Date/Type/Reason Admit Date/Time Jul 18, 2018 at 13:59 Initial Consult Date 07/18/18 Requesting Provider: JOSÉ ANTONIO MIRZA MD Date/Time of Note DATE: 07/25/18 TIME: 16:44 24 HR Interval Summary Free Text/Dictation As per the staff no bleeding noted Patient is tolerating feeding through the G-tube No melanotic stool Constitutional: improved Exam/Review of Systems Exam Vitals Vital Signs Date Temp Pulse Resp B/P (MAP) Pulse Ox O2 O2 Flow FiO2 Time Delivery Rate 07/25/18 9 24 96 40 16:26 07/25/18 129/81 Mechanical 15:00 (97) Ventilator 07/25/18 98.4 12:00 Intake and Output 07/24/18 07/24/18 07/25/18 1515:00 23:00 07:00 IntakeIntake Total 1100 ml 550 ml 1095 ml OutputOutput Total 195 ml 95 ml 390 ml BalanceBalance 905 ml 455 ml 705 ml Constitutional: alert Respiratory: clear to auscultation, normal air movement Extremities: normal pulses Results Result Diagram: 07/25/18 0415 07/25/18 0415 Results 24hrs Laboratory Tests Test 07/24/18 21:07 07/25/18 04:15 07/25/18 04:49 White Blood Count 6.9 5.7 Red Blood Count 2.83 L 2.97 L Hemoglobin 7.9 L 8.1 L Hematocrit 27.9 L 28.9 L Mean Corpuscular Volume 98.6 97.3 Mean Corpuscular Hemoglobin 27.9 L 27.3 L Mean Corpuscular 28.3 L 28.0 L Hemoglobin Concent Red Cell Distribution Width 19.6 H 20.2 H Platelet Count 104 L 109 L Mean Platelet Volume 14.2 H Immature Granulocytes % 0.300 0.200 Neutrophils % 89.8 H 87.1 H Lymphocytes % 3.2 L 4.5 L Monocytes % 5.4 6.3 Eosinophils % 1.2 1.7 Basophils % 0.1 0.2 Nucleated Red Blood Cells % 0.0 0.0 Immature Granulocytes # 0.020 0.010 Neutrophils # 6.2 5.0 Lymphocytes # 0.2 L 0.3 L Monocytes # 0.4 0.4 Eosinophils # 0.1 0.1 Basophils # 0.0 0.0 Nucleated Red Blood Cells # 0.0 0.0 Sodium Level 143 Potassium Level 3.6 Chloride Level 113 H Carbon Dioxide Level 20 L Anion Gap 10 Blood Urea Nitrogen 89 H Creatinine 2.05 H Est Glomerular Filtrat 36 L Rate mL/min Glucose Level 106 Calcium Level 8.3 L Lab Scanned Report BLOOD TRANSFUSION Medications Medication Current Medications Bisacodyl (Dulcolax Supp) 10 mg DAILY [place] Last administered on 07/25/18 08:09; Admin Dose 10 MG; Start 07/19/18 at 09:00 Multivitamins Therapeutic (Theragran) 1 tab DAILY GTB Last administered on 07/25/18 08:09; Admin Dose 1 TAB; Start 07/19/18 at 09:00 Quetiapine Fumarate (Seroquel) 50 mg BID GTB Last administered on 07/25/18 08:09; Admin Dose 50 MG; Start 07/18/18 at 21:00 Zinc Sulfate (Zinc Sulfate) 220 mg DAILY GTB Last administered on 07/25/18 08:09; Admin Dose 220 MG; Start 07/19/18 at 09:00 IV Flush (NS 3 ml) 3 ml PER PROTOCOL IV ; Start 07/18/18 at 18:30 Ondansetron HCl (Zofran Inj) 4 mg Q6H PRN IV NAUSEA AND/OR VOMITING Last administered on 07/23/18at 21:38; Admin Dose 4 MG; Start 07/18/18 at 18:30 Albuterol (Proventil 0.083% (Neb)) 2.5 mg Q2H RESP THERAPY PRN NEB SHORTNESS OF BREATH Last administered on 07/20/18at 23:05; Admin Dose 2.5 MG; Start 07/18/18 at 18:30 Ipratropium [place] (Atrovent 0.02% (Neb)) 0.5 mg Q2H RESP THERAPY PRN NEB SHORTNESS OF BREATH Last administered on 07/20/18 03:25; Admin Dose 0.5 MG; Start 07/18/18 at 18:30 Hydromorphone HCl (Dilaudid) 0.5 mg Q4H PRN IV PAIN LEVEL 7-10 Last administere d on 07/25/18 12:19; Admin Dose 0.5 MG; Start 07/18/18 at 18:30 Acetaminophen (Tylenol Liquid) 650 mg Q6H PRN GTB PAIN LEVEL 1-3 OR FEVER Last administered on 07/24/18 12:05; Admin Dose 650 MG; Start 07/19/18 at 10:30 Acetaminophen/ Hydrocodone Bitart ([place] (5/325)) 1 tab Q6H PRN GTB PAIN LEVEL 4-6 Last administered on 07/25/18at 14:29; Admin Dose 1 TAB; Start 07/19/18 at 12:30 Docusate Sodium (Colace Liquid Cup) 100 mg Q12 PRN GTB CONSTIPATION; Start 07/19/18 at 08:00 Docusate Sodium (Colace Liquid Cup) 100 mg QHS GTB Last administered on 07/23/18at 21:26; Admin Dose 100 MG; Start 07/19/18 at 21:00 IV Flush (NS 10 ml) 10 ml PRN PRN IV FLUSH LINE; Start 07/19/18 at 18:30 Levetiracetam (Keppra Liquid) 500 mg Q12 GTB Last administered on 07/25/18at 08:09; Admin Dose 500 MG; Start 07/20/18 at 21:00 Gentamicin Sulfate (Gentamicin Iv Per Pharmacy) GENTAMICIN PER PHARMACY NOTE XX ; Start 07/20/18 at 14:00 Gentamicin Sulfate 180 mg/ Sodium Chloride 104.5 ml @ 104.5 mls/ hr Q72H IVPB Last administered on 07/23/18at 15:05; Admin Dose 104.5 MLS/HR; Start 07/20/18 at 16:00 Mupirocin (Bactroban) 1 applic BID TOP Last administered on 07/25/18 08:09; Admin Dose 1 APPLIC; Start 07/21/18 at 21:00 Metronidazole (Flagyl) 500 mg Q8 PO Last administered on 07/25/18 14:22; Admin Dose 500 MG; Start 07/21/18 at 14:00 Sodium Hypochlorite (Dakins Diluted (40)) 1 applic BID TP Last administered on 07/25/18 08:10; Admin Dose 1 APPLIC; Start 07/22/18 at 09:00 Collagenase (Santyl) 1 applic BID TOP Last administered on 07/25/18 08:08; Admin Dose 1 APPLIC; Start 07/22/18 at 09:00 Famotidine (Pepcid Iv) 20 mg BID IV Last administered on 07/25/18 08:52; Admin Dose 20 MG; Start 07/23/18 at 21:00 Epoetin Prince-epbx (Retacrit (Non-Esrd)) 10,000 unit MoWeFr@1700 SC Last administered on 07/23/18 19:43; Admin Dose 10,000 UNIT; Start 07/23/18 at 18:30 Norepinephrine 250 ml @ 1.875 mls/ hr TITRATE IV ; Start 07/23/18 at 17:30 Metoclopramide HCl (Reglan) 5 mg TID IV Last administered on 07/25/18 12:19; Admin Dose 5 MG; Start 07/24/18 at 09:00 Potassium Chloride/Dextrose 1,000 ml @ 100 mls/hr Q10H IV Last administered on 07/25/18 08:08; Admin Dose 125 MLS/HR; Start 07/24/18 at 15:30 Miscellaneous Information (*Rx Drug Level Order Reminder*) GENTAMICIN TR / AT 1... 1400 ONCE XX ; Start 07/26/18 at 14:00; Stop 07/26/18 at 14:01 Miscellaneous Information (*Rx Drug Level Order Reminder*) GENTAMICIN PEAK /20 AT 1... 1630 ONCE XX ; Start 07/26/18 at 16:30; Stop 07/26/18 at 16:31 OPAL STRATTON MD Jul 25, 2018 16:46
[2018-07-25] MEDS: EPOETIN ALFA-EPBX (NON-ESRD 10,000 UNIT/ML VIAL SC SCH (17:00)
[2018-07-25] MEDS: DOCUSATE SODIUM 10 MG/ML (10ML CUP) GTB SCH (21:23)
--- NOTE | 2018-07-25 21:52 | PN ---
DATE: 07/25/2018 SUBJECTIVE: The patient is in ICU on the ventilator support. He is resting comfortably. He shows n o signs of respiratory distress. His breathing is synchronized with the ventilator. PHYSICAL EXAMINATION: VITAL SIGNS: Show blood pressure 107/59, pulse rate 89, respirations 21, pulse oximetry 97% saturati on. His temperature is 98.9. His BP has been stable, being off Levophed for the last few days. HEART: Regular sinus rhythm. CHEST: Breath sounds are heard bilaterally, diminished in both the lower lung tierney with a few inte rmittent rales and rhonchi. ABDOMEN: Soft, no distention seen. He is tolerating tube feedings. Bowel sounds are present. EXTREMITIES: Show no edema. He is paraplegic. LABORATORY DATA: Show sodium 143, potassium 3.6, bicarbonate of 20, BUN 89, creatinine 2.05. Both B UN and creatinine are improving. Glucose 106. CBC shows WBC 5700, hemoglobin 8.1, hematocrit 28.9, platelets are decreased, but almost at the same level as before, 109,000. IMPRESSION: 1. Sepsis. 2. Probable pneumonia, right lung. 3. Chronic ventilator-dependent respiratory failure. 4. Chronic kidney disease with acute kidney injury, improving. 5. Chronic anemia. 6. History of nephrolithiasis. 7. 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 8. History of bipolar disorder. RECOMMENDATIONS: 1. Continue long-term ventilator support. 2. Continue antibiotics. 3. Continue bronchodilator inhalation therapy. 4. Continue hydration. 5. Continue supportive therapy. Dictated By: HUMBERTO PEREZ MD SR/NTS Conf#: [id number] DID#: [id number] CC: JOSÉ ANTONIO MIRZA MD;*EndCC*
[2018-07-25] MEDS ORDERED: ERYTHROMYCIN BASE (DR) 250 MG CAP PO SCH (22:00)
[2018-07-26] VITALS (23 sets, daily range): BP systolic 92–139; BP diastolic 42–92; PULSE 67–103; RESP 20–29
[2018-07-26] MEDS: HYDROmorphONE 0.5 MG/0.5 ML SYG IV PRN ×5 (02:00→21:24)
[2018-07-26] MEDS: D5W + KCL 20 MEQ 1,000 ML IV SCH ×2 (03:22→09:54)
[2018-07-26] MEDS: metroNIDAZOLE 500 MG TAB PO SCH ×3 (05:49→21:23)
[2018-07-26] MEDS: LEVETIRACETAM (100 MG/ML) 5ML CUP GTB SCH ×2 (09:51→20:14)
[2018-07-26] MEDS: METOCLOPRAMIDE 10 MG INJ IV SCH ×3 (09:52→20:14)
[2018-07-26] MEDS: DOCUSATE SODIUM 10 MG/ML (10ML CUP) GTB PRN (09:52)
[2018-07-26] MEDS: ZINC SULFATE 220 MG CAP GTB SCH (09:52)
[2018-07-26] MEDS: DAKINS 0.0125%(1/40) 473 ML SOLUTION TP SCH ×2 (09:52→21:31)
[2018-07-26] MEDS: FAMOTIDINE 20 MG INJ IV SCH ×2 (09:52→20:14)
[2018-07-26] MEDS: QUETIAPINE 25 MG TAB GTB SCH ×2 (09:52→20:15)
[2018-07-26] MEDS: MULTIVITAMINS THERAPEUTIC TAB GTB SCH (09:52)
[2018-07-26] MEDS: BISACODYL 10 MG SUPP PR SCH (09:52)
[2018-07-26] MEDS: COLLAGENASE 5 GM (UD JAR) TOP SCH ×2 (09:53→20:13)
[2018-07-26] MEDS: MUPIROCIN 2% 22 GM OINT TOP SCH ×2 (09:53→21:31)
[2018-07-26] MEDS: BALSAM PERU/CASTOR OIL 60 GM TUBE TOP SCH ×2 (09:53→21:31)
--- NOTE | 2018-07-26 10:48 | CONS ---
Assessment/Plan Assessment/Plan Assessment/Plan (Daily) - Anemia- Hgb 8.1 today; sp 1 unit PRBC today 1. Acute Renal failure with severe Uremia, BUN trended down to 114 today 2. Septic shock on Levophed due to PNA and UTI 3. PNA concerned about HCAP 4. UTI 5. 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 ventilator dependent respiratory failure with tracheostomy 7. dysphagia with G-tube 8. chronic kidney disease III 9. history of right nephrectomy 10. left renal nephrolithiasis 11. bipolar disorder Plan: BP still labile IV abx for Septic shock, Renally dose all abx and monitor electrolytes continue IVF NS at 100 cc/hr SP IV albumin 25% 100ml Q 8 hr x 3 doses pt is currently severely dry, will continue IVF NS at 100 cc/ hr We will continue to follow up Critical care time spent is 30 minutes.Patient seen in collaboration with Dr Paul Barker. dw staff Consultation Date/Type/Reason Admit Date/Time Jul 18, 2018 at 13:59 Initial Consult Date 07/18/18 Type of Consult Nephrology Reason for Consultation Renal insufficiency Requesting Provider: JOSÉ ANTONIO MIRZA MD Date/Time of Note DATE: 07/26/18 TIME: 10:47 24 HR Interval Summary Subjective hx not possible: pt non-verbal Constitutional: requiring O2 Exam/Review of Systems Exam Vitals Vital Signs Date Temp Pulse Resp B/P (MAP) Pulse Ox O2 O2 Flow FiO2 Time Delivery Rate 07/26/18 90 26 97 40 09:26 07/26/18 Mechanical 08:00 Ventilator 07/26/18 98.0 128/76 07:54 (93) Intake and Output 07/25/18 07/25/18 07/26/18 1515:00 23:00 07:00 IntakeIntake Total 785 ml 360 ml OutputOutput Total 460 ml 100 ml 1500 ml BalanceBalance 325 ml -100 ml -1140 ml Constitutional: alert, well developed, frail Psych: nl mood/affect Eyes: nl lids, nl sclera ENMT: nl external ears & nose Neck: non-tender Respiratory: diminished breath sounds Cardiovascular: nl pulses, other (s1s2) Gastrointestinal: soft, non-tender, other Musculoskeletal: joint tenderness, muscle weakness, range of motion Extremities: normal pulses Neurological: confused Skin: other Results Result Diagram: 07/25/18 0415 07/25/18 0415 Medications Medication Current Medications Bisacodyl (Dulcolax Supp) 10 mg DAILY [place] Last administered on 07/26/18 09:52; Admin Dose 10 MG; Start 07/19/18 at 09:00 Multivitamins Therapeutic (Theragran) 1 tab DAILY GTB Last administered on 07/26/18 09:52; Admin Dose 1 TAB; Start 07/19/18 at 09:00 Quetiapine Fumarate (Seroquel) 50 mg BID GTB Last administered on 07/26/18 09:52; Admin Dose 50 MG; Start 07/18/18 at 21:00 Zinc Sulfate (Zinc Sulfate) 220 mg DAILY GTB Last administered on 07/26/18 09:52; Admin Dose 220 MG; Start 07/19/18 at 09:00 IV Flush (NS 3 ml) 3 ml PER PROTOCOL IV ; Start 07/18/18 at 18:30 Ondansetron HCl (Zofran Inj) 4 mg Q6H PRN IV NAUSEA AND/OR VOMITING Last administered on 07/23/18 21:38; Admin Dose 4 MG; Start 07/18/18 at 18:30 Albuterol (Proventil 0.083% (Neb)) 2.5 mg Q2H RESP THERAPY PRN NEB SHORTNESS OF BREATH Last administered on 07/20/18 23:05; Admin Dose 2.5 MG; Start 07/18/18 at 18:30 Ipratropium [place] (Atrovent 0.02% (Neb)) 0.5 mg Q2H RESP THERAPY PRN NEB SHORTNESS OF BREATH Last administered on 07/20/18 03:25; Admin Dose 0.5 MG; Start 07/18/18 at 18:30 Hydromorphone HCl (Dilaudid) 0.5 mg Q4H PRN IV PAIN LEVEL 7-10 Last administered on 07/26/18 05:49; Admin Dose 0.5 MG; Start 07/18/18 at 18:30 Acetaminophen (Tylenol Liquid) 650 mg Q6H PRN GTB PAIN LEVEL 1-3 OR FEVER Last administered on 07/24/18 12:05; Admin Dose 650 MG; Start 07/19/18 at 10:30 Acetaminophen/ Hydrocodone Bitart ([place] (5/325)) 1 tab Q6H PRN GTB PAIN LEVEL 4-6 Last administered on 07/25/18 14:29; Admin Dose 1 TAB; Start 07/19/18 at 12:30 Docusate Sodium (Colace Liquid Cup) 100 mg Q12 PRN GTB CONSTIPATION Last administered on 07/26/18 09:52; Admin Dose 100 MG; Start 07/19/18 at 08:00 Docusate Sodium (Colace Liquid Cup) 100 mg QHS GTB Last administered on 07/25/18 21:23; Admin Dose 100 MG; Start 07/19/18 at 21:00 IV Flush (NS 10 ml) 10 ml PRN PRN IV FLUSH LINE; Start 07/19/18 at 18:30 Levetiracetam (Keppra Liquid) 500 mg Q12 GTB Last administered on 07/26/18 09:51; Admin Dose 500 MG; Start 07/20/18 at 21:00 Gentamicin Sulfate (Gentamicin Iv Per Pharmacy) GENTAMICIN PER PHARMACY NOTE XX ; Start 07/20/18 at 14:00 Gentamicin Sulfate 180 mg/ Sodium Chloride 104.5 ml @ 104.5 mls/ hr Q72H IVPB Last administered on 07/23/18 15:05; Admin Dose 104.5 MLS/HR; Start 07/20/18 at 16:00 Mupirocin (Bactroban) 1 applic BID TOP Last administered on 07/26/18 09:53; Admin Dose 1 APPLIC; Start 07/21/18 at 21:00 Metronidazole (Flagyl) 500 mg Q8 PO Last administered on 07/26/18 05:49; Admin Dose 500 MG; Start 07/21/18 at 14:00 Sodium Hypochlorite (Dakins Diluted (40)) 1 applic BID TP Last administered on 07/26/18 09:52; Admin Dose 1 APPLIC; Start 07/22/18 at 09:00 Collagenase (Santyl) 1 applic BID TOP Last administered on 07/26/18 09:53; Admin Dose 1 APPLIC; Start 07/22/18 at 09:00 Famotidine (Pepcid Iv) 20 mg BID IV Last administered on 07/26/18 09:52; Admin Dose 20 MG; Start 07/23/18 at 21:00 Epoetin [place]-epbx (Retacrit (Non-Esrd)) 10,000 unit MoWeFr@1700 SC Last administered on 07/23/18at 19:43; Admin Dose 10,000 UNIT; Start 07/23/18 at 18:30 Norepinephrine 250 ml @ 1.875 mls/ hr TITRATE IV ; Start 07/23/18 at 17:30 Metoclopramide HCl (Reglan) 5 mg TID IV Last administered on 07/26/18at 09:52; Admin Dose 5 MG; Start 07/24/18 at 09:00 Potassium Chloride/Dextrose 1,000 ml @ 100 mls/hr Q10H IV Last administered on 07/26/18at 09:54; Admin Dose 100 MLS/HR; Start 07/24/18 at 15:30 Miscellaneous Information (*Rx Drug Level Order Reminder*) GENTAMICIN TR 07/26 AT 1... 1400 ONCE XX ; Start 07/26/18 at 14:00; Stop 07/26/18 at 14:01 Miscellaneous Information (*Rx Drug Level Order Reminder*) GENTAMICIN PEAK 07/26 AT 1... 1630 ONCE XX ; Start 07/26/18 at 16:30; Stop 07/26/18 at 16:31 NAE VELAZCO Jul 26, 2018 10:48
--- NOTE | 2018-07-26 12:23 | PN ---
DATE: 07/26/2018 The patient is on the medical floor now He is on continuous long-term ventilator support. He is awak e, responsive, but somewhat noncooperative. PHYSICAL EXAMINATION: VITAL SIGNS: Stable. No fever spikes. Temperature 98, blood pressure 128/76, pulse rate is 86, res pirations 29, pulse oximetry 97% saturation. HEART: Regular rhythm. CHEST: Breath sounds are diminished in both the lung tierney with a few rales and rhonchi. ABDOMEN: Soft, no distention seen. He is tolerating tube feedings. No vomiting reported. EXTREMITIES: Show no edema. He is paraplegic. LABORATORY DATA: No lab results are available today. IMPRESSION: 1. Sepsis. 2. Probable pneumonia, right lung. 3. Chronic ventilator dependent respiratory failure. 4. Chronic kidney disease with acute kidney injury, improving. 5. Chronic anemia. 6. History of nephrolithiasis. 7. 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 8. History of bipolar disorder. RECOMMENDATIONS: 1. Continue long-term ventilator support. 2. Continue antibiotics per infectious disease data virtualization consultant. 3. Continue bronchodilator inhalation therapy. 4. Continue hydration. 5. Continue supportive therapy. Dictated By: HUMBERTO PEREZ MD SR/NTS Conf#: [id number] DID#: [id number] CC: JOSÉ ANTONIO MIRZA MD;*EndCC*
[2018-07-26] MEDS: HYDROCODONE/APAP (5/325) TAB GTB PRN ×2 (13:57→20:15)
--- NOTE | 2018-07-26 14:56 | CONS ---
Assessment/Plan Assessment/Plan Hospital Course (Demo Recall) No acute events. Patient was transferred out of ICU. He is awake looks comfortable no fevers overnight Antimicrobials: Gentamicin, Flagyl Microbiology: Urine culture grew Acinetobacter susceptible to gentamicin tobramycin and Bactrim, blood cultures negative Allergies: Tetracyclines Indwelling: Trach, PEG, PICC line, suprapubic catheter CT abdomen pelvis revealed bibasilar atelectasis and small effusions. Small ascites. Left hydroureter due to multiple small 2 mm stones in the course of the ureter cannot rule out pyelonephritis. Gastrostomy tube in the distended stomach. Physical examination: Chronically ill-appearing wasted middle-aged man who is awake in no distress. Head atraumatic normocephalic sclera nonicteric vehicle mucosa dry neck is supple tracheostomy present chest rise symmetrical breath sounds diminished the bases. Heart: S1-S2. Abdomen soft bowel sounds present. Extremities wasted contractured Assessment: 1. Resolving sepsis, s/p shock 2. Recurrent UTI/acute pyelonephritis 3. Acute on chronic respiratory failure ?PNA 4. Acute on chronic kidney disease 5. Incomplete quadriplegia 6. Anemia and thrombocytopenia 7. History of left breast nephrectomy 8. Multiple chronic decubitus ulcers 9. Diarrhea, rule out C. difficile 10. MRSA colonization of the naris Plan: Doing better, continue antibiotics Consultation Date/Type/Reason Admit Date/Time Jul 18, 2018 at 13:59 Initial Consult Date 07/18/18 Type of Consult id Requesting Provider: JOSÉ ANTONIO MIRZA MD Date/Time of Note DATE: 07/26/18 TIME: 14:55 Exam/Review of Systems Exam Vitals Vital Signs Date Temp Pulse Resp B/P (MAP) Pulse Ox O2 O2 Flow FiO2 Time Delivery Rate 07/26/18 88 24 99 40 13:24 07/26/18 Mechanical 12:30 Ventilator 07/26/18 98.0 92/42 (59) 11:35 Intake and Output 07/25/18 07/25/18 07/26/18 1515:00 23:00 07:00 IntakeIntake Total 785 ml 360 ml OutputOutput Total 460 ml 100 ml 1500 ml BalanceBalance 325 ml -100 ml -1140 ml Results Result Diagram: 07/25/18 0415 07/25/18 0415 Medications Medication Current Medications Bisacodyl (Dulcolax Supp) 10 mg DAILY [place] Last administered on 07/26/18 09:52; Admin Dose 10 MG; Start 07/19/18 at 09:00 Multivitamins Therapeutic (Theragran) 1 tab DAILY GTB Last administered on 07/26/18 09:52; Admin Dose 1 TAB; Start 07/19/18 at 09:00 Quetiapine Fumarate (Seroquel) 50 mg BID GTB Last administered on 07/26/18 09:52; Admin Dose 50 MG; Start 07/18/18 at 21:00 Zinc Sulfate (Zinc Sulfate) 220 mg DAILY GTB Last administered on 07/26/18 09:52; Admin Dose 220 MG; Start 07/19/18 at 09:00 IV Flush (NS 3 ml) 3 ml PER PROTOCOL IV ; Start 07/18/18 at 18:30 Ondansetron HCl (Zofran Inj) 4 mg Q6H PRN IV NAUSEA AND/OR VOMITING Last administered on 07/23/18 21:38; Admin Dose 4 MG; Start 07/18/18 at 18:30 Albuterol (Proventil 0.083% (Neb)) 2.5 mg Q2H RESP THERAPY PRN NEB SHORTNESS OF BREATH Last administered on 07/20/18 23:05; Admin Dose 2.5 MG; Start 07/18/18 at 18:30 Ipratropium [place] (Atrovent 0.02% (Neb)) 0.5 mg Q2H RESP THERAPY PRN NEB SHORTNESS OF BREATH Last administered on 07/20/18 03:25; Admin Dose 0.5 MG; Start 07/18/18 at 18:30 Hydromorphone HCl (Dilaudid) 0.5 mg Q4H PRN IV PAIN LEVEL 7-10 Last ad ministered on 07/26/18 09:50; Admin Dose 0.5 MG; Start 07/18/18 at 18:30 Acetaminophen (Tylenol Liquid) 650 mg Q6H PRN GTB PAIN LEVEL 1-3 OR FEVER Last administered on 07/24/18 12:05; Admin Dose 650 MG; Start 07/19/18 at 10:30 Acetaminophen/ Hydrocodone Bitart ([place] (5/325)) 1 tab Q6H PRN GTB PAIN LEVEL 4-6 Last administered on 07/26/18 13:57; Admin Dose 1 TAB; Start 07/19/18 at 12:30 Docusate Sodium (Colace Liquid Cup) 100 mg Q12 PRN GTB CONSTIPATION Last administered on 07/26/18 09:52; Admin Dose 100 MG; Start 07/19/18 at 08:00 Docusate Sodium (Colace Liquid Cup) 100 mg QHS GTB Last administered on 07/25/18 21:23; Admin Dose 100 MG; Start 07/19/18 at 21:00 IV Flush (NS 10 ml) 10 ml PRN PRN IV FLUSH LINE; Start 07/19/18 at 18:30 Levetiracetam (Keppra Liquid) 500 mg Q12 GTB Last administered on 07/26/18 09:51; Admin Dose 500 MG; Start 07/20/18 at 21:00 Gentamicin Sulfate (Gentamicin Iv Per Pharmacy) GENTAMICIN PER PHARMACY NOTE XX ; Start 07/20/18 at 14:00 Gentamicin Sulfate 180 mg/ Sodium Chloride 104.5 ml @ 104.5 mls/ hr Q72H IVPB Last administered on 07/23/18 15:05; Admin Dose 104.5 MLS/HR; Start 07/20/18 at 16:00 Mupirocin (Bactroban) 1 applic BID TOP Last administered on 07/26/18 09:53; Admin Dose 1 APPLIC; Start 07/21/18 at 21:00 Metronidazole (Flagyl) 500 mg Q8 PO Last administered on 07/26/18 13:57; Admin Dose 500 MG; Start 07/21/18 at 14:00 Sodium Hypochlorite (Dakins Diluted (40)) 1 applic BID TP Last administered on 07/26/18 09:52; Admin Dose 1 APPLIC; Start 07/22/18 at 09:00 Collagenase (Santyl) 1 applic BID TOP Last administered on 07/26/18 09:53; Admin Dose 1 APPLIC; Start 07/22/18 at 09:00 Famotidine (Pepcid Iv) 20 mg BID IV Last administered on 07/26/18 09:52; Admin Dose 20 MG; Start 07/23/18 at 21:00 Epoetin [place]-epbx (Retacrit (Non-Esrd)) 10,000 unit MoWeFr@1700 SC Last administered on 07/23/18at 19:43; Admin Dose 10,000 UNIT; Start 07/23/18 at 18:30 Norepinephrine 250 ml @ 1.875 mls/ hr TITRATE IV ; Start 07/23/18 at 17:30 Metoclopramide HCl (Reglan) 5 mg TID IV Last administered on 07/26/18at 13:57; Admin Dose 5 MG; Start 07/24/18 at 09:00 Potassium Chloride/Dextrose 1,000 ml @ 100 mls/hr Q10H IV Last administered on 07/26/18at 09:54; Admin Dose 100 MLS/HR; Start 07/24/18 at 15:30 Miscellaneous Information (*Rx Drug Level Order Reminder*) GENTAMICIN PEAK 07/26 AT 1... 1630 ONCE XX ; Start 07/26/18 at 16:30; Stop 07/26/18 at 16:31 REGINALDO CHERY NP Jul 26, 2018 14:56
--- NOTE | 2018-07-26 16:06 | PN ---
Date/Time of Note Date/Time of Note DATE: 07/26/18 TIME: 16:02 Assessment/Plan VTE Prophylaxis Risk score (from Ns)>0 risk: 6 SCD applied (from Ns): Yes Pharmacological prophylaxis: NA/contraindicated Pharm contraindication: bleeding Lines/Catheters [facility] Type (from [facility] PICC Line Central line still needed: Yes Reason Cath still needed: urinary retention Assessment/Plan Hospital Course Patient is awake alert continues on ventilatory support, continues on antibiotics for pneumonia, patient restarted on G-tube feeding yesterday advanced per gastroenterology recommendations, continue to monitor residual. Assessment/Plan - Anemia multifactorial, chronic disease and blood loss. S/p blood transfusion, continue Epogen. - Possible GI bleed. Dr. Borjas is following in gastroenterology consultation. - Ileus versus small bowel obstruction. - Sepsis with shock injury to possible healthcare acquired pneumonia and UTI, continue abx per ID. Dr. Maciel is following in infection disease consultation. - Acute on chronic renal failure. Continue to monitor BUN and creatinine. Dr. Barker is following in nephrology consultation. - Ventilator dependent respiratory failure, continue pulmonary toilet and bronchodilators. Dr Ames is following in pulmonology consultation. - Neurogenic bladder with suprapubic catheter. - Dysphagia with gastrostomy tube. - Multiple decubitus ulcers present on admission. - Cervical spine injury with paraplegia. - Bipolar disorder with psychosis. - Hx of right nephrectomy - Hx of left renal nephrolithiasis, hx of lithotripsy with insertion and subsequent removal of ureteral JJ stent. Further recommendations based on clinical course. Plan of care discussed with Dr. Barreto. Result Diagram: 07/25/18 0415 07/25/18 0415 Results 24hrs Laboratory Tests Test 07/26/18 14:34 Gentamicin Level Trough 2.0 Exam/Review of Systems Exam Vitals Vital Signs Date Temp Pulse Resp B/P (MAP) Pulse Ox O2 O2 Flow FiO2 Time Delivery Rate 07/26/18 84 25 98 40 15:37 07/26/18 98.0 105/62 Mechanical 15:36 (76) Ventilator Intake and Output 07/25/18 07/25/18 07/26/18 1515:00 23:00 07:00 IntakeIntake Total 785 ml 360 ml OutputOutput Total 460 ml 100 ml 1500 ml BalanceBalance 325 ml -100 ml -1140 ml Exam Constitutional: alert, awake Neck: supple, other (Tracheostomy) Respiratory: diminished breath sounds Cardiovascular: regular rate and rhythm Gastrointestinal: soft, non-tender, other (G-tube) Genitourinary - Male: other (Suprapubic catheter) Extremities: normal pulses, other (Contracted) Neurological: other (Paraplegia) Skin: other (Multiple wounds) Results Results 24hrs Laboratory Tests Test 07/26/18 14:34 Gentamicin Level Trough 2.0 Medications Medication Current Medications Bisacodyl (Dulcolax Supp) 10 mg DAILY [place] Last administered on 07/26/18 09:52; Admin Dose 10 MG; Start 07/19/18 at 09:00 Multivitamins Therapeutic (Theragran) 1 tab DAILY GTB Last administered on 07/26/18 09:52; Admin Dose 1 TAB; Start 07/19/18 at 09:00 Quetiapine Fumarate (Seroquel) 50 mg BID GTB Last administered on 07/26/18 09:52; Admin Dose 50 MG; Start 07/18/18 at 21:00 Zinc Sulfate (Zinc Sulfate) 220 mg DAILY GTB Last administered on 07/26/18 09:52; Admin Dose 220 MG; Start 07/19/18 at 09:00 IV Flush (NS 3 ml) 3 ml PER PROTOCOL IV ; Start 07/18/18 at 18:30 Ondansetron HCl (Zofran Inj) 4 mg Q6H PRN IV NAUSEA AND/OR VOMITING Last administered on 07/23/18 21:38; Admin Dose 4 MG; Start 07/18/18 at 18:30 Albuterol (Proventil 0.083% (Neb)) 2.5 mg Q2H RESP THERAPY PRN NEB SHORTNESS OF BREATH Last administered on 07/20/18 23:05; Admin Dose 2.5 MG; Start 07/18/18 at 18:30 Ipratropium [place] (Atrovent 0.02% (Neb)) 0.5 mg Q2H RESP THERAPY PRN NEB SHORTNESS OF BREATH Last administered on 07/20/18 03:25; Admin Dose 0.5 MG; Start 07/18/18 at 18:30 Hydromorphone HCl (Dilaudid) 0.5 mg Q4H PRN IV PAIN LEVEL 7-10 Last administered on 07/26/18 09:50; Admin Dose 0.5 MG; Start 07/18/18 at 18:30 Acetaminophen (Tylenol Liquid) 650 mg Q6H PRN GTB PAIN LEVEL 1-3 OR FEVER Last administered on 07/24/18 12:05; Admin Dose 650 MG; Start 07/19/18 at 10:30 Acetaminophen/ Hydrocodone Bitart ([place] (5/325)) 1 tab Q6H PRN GTB PAIN LEVEL 4-6 Last administered on 07/26/18 13:57; Admin Dose 1 TAB; Start 07/19/18 at 12:30 Docusate Sodium (Colace Liquid Cup) 100 mg Q12 PRN GTB CONSTIPATION Last administered on 07/26/18 09:52; Admin Dose 100 MG; Start 07/19/18 at 08:00 Docusate Sodium (Colace Liquid Cup) 100 mg QHS GTB Last administered on 07/25/18 21:23; Admin Dose 100 MG; Start 07/19/18 at 21:00 IV Flush (NS 10 ml) 10 ml PRN PRN IV FLUSH LINE; Start 07/19/18 at 18:30 Levetiracetam (Keppra Liquid) 500 mg Q12 GTB Last administered on 07/26/18 09:51; Admin Dose 500 MG; Start 07/20/18 at 21:00 Gentamicin Sulfate (Gentamicin Iv Per Pharmacy) GENTAMICIN PER PHARMACY NOTE XX ; Start 07/20/18 at 14:00 Gentamicin Sulfate 180 mg/ Sodium Chloride 104.5 ml @ 104.5 mls/ hr Q72H IVPB Last administered on 07/23/18 15:05; Admin Dose 104.5 MLS/HR; Start 07/20/18 at 16:00 Mupirocin (Bactroban) 1 applic BID TOP Last administered on 07/26/18 09:53; Admin Dose 1 APPLIC; Start 07/21/18 at 21:00 Metronidazole (Flagyl) 500 mg Q8 PO Last administered on 07/26/18 13:57; Admin Dose 500 MG; Start 07/21/18 at 14:00 Sodium Hypochlorite (Dakins Diluted ()) 1 applic BID TP Last administered on 07/26/18 09:52; Admin Dose 1 APPLIC; Start 07/22/18 at 09:00 Collagenase (Santyl) 1 applic BID TOP Last administered on 07/26/18at 09:53; Admin Dose 1 APPLIC; Start 07/22/18 at 09:00 Famotidine (Pepcid Iv) 20 mg BID IV Last administered on 07/26/18at 09:52; Admin Dose 20 MG; Start 07/23/18 at 21:00 Epoetin Prince-epbx (Retacrit (Non-Esrd)) 10,000 unit MoWeFr@1700 SC Last administered on 07/23/18at 19:43; Admin Dose 10,000 UNIT; Start 07/23/18 at 18:30 Norepinephrine 250 ml @ 1.875 mls/ hr TITRATE IV ; Start 07/23/18 at 17:30 Metoclopramide HCl (Reglan) 5 mg TID IV Last administered on 07/26/18at 13:57; Admin Dose 5 MG; Start 07/24/18 at 09:00 Potassium Chloride/Dextrose 1,000 ml @ 100 mls/hr Q10H IV Last administered on 07/26/18at 09:54; Admin Dose 100 MLS/HR; Start 07/24/18 at 15:30 Miscellaneous Information (*Rx Drug Level Order Reminder*) GENTAMICIN PEAK 07/26 AT 1... 1630 ONCE XX ; Start 07/26/18 at 16:30; Stop 07/26/18 at 16:31 AISSATOU DUNCAN Jul 26, 2018 16:06
[2018-07-26] MEDS: GENTAMICIN 180 MG in SOD CHLORIDE 0.9% 100 ML IVPB SCH (17:16)
--- NOTE | 2018-07-26 18:21 | CONS ---
Assessment/Plan Assessment/Plan Assessment/Plan (Daily) Assessment/Plan Assessment/Plan (Daily) pital Course (Demo Recall) 42 year old paraplegic male presents from SNF for sepsis secondary to pnuemonia and UTI was found to ileus vs SBO on KUB with one episode of coffee ground vomit. 1. Ileus vs SBO clinically resolved the patient is tolerating feeding 2. Anemia, acute on chronic recent is status post 1 unit of packed cell RBC transfusion 3. Acute on chronic renal failure -h/o rt nephrectomy 4. Sepsis secondary to pnuemonia and UTI 5. Pneumonia 6. UTI -Acinetobacter Baumannii 7. 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 Vent dependent respiratory failure 9. Dysphagia, s/p g tube 10. Bipolar disorder Plan Continue Pepcid Continue Reglan Increase feeding to 30 cc/h Suppository Dulcolax Consultation Date/Type/Reason Admit Date/Time Jul 18, 2018 at 13:59 Initial Consult Date 07/18/18 Requesting Provider: JOSÉ ANTONIO MIRZA MD Date/Time of Note DATE: 07/26/18 TIME: 18:20 24 HR Interval Summary Free Text/Dictation No abdominal pain no nausea no vomiting Exam/Review of Systems Exam Vitals Vital Signs Date Temp Pulse Resp B/P (MAP) Pulse Ox O2 O2 Flow FiO2 Time Delivery Rate 07/26/18 80 25 99 40 17:55 07/26/18 Mechanical 16:09 Ventilator 07/26/18 98.0 105/62 15:36 (76) Intake and Output 07/25/18 07/25/18 07/26/18 1515:00 23:00 07:00 IntakeIntake Total 785 ml 360 ml OutputOutput Total 460 ml 100 ml 1500 ml BalanceBalance 325 ml -100 ml -1140 ml Constitutional: alert Cardiovascular: regular rate and rhythm, nl pulses Gastrointestinal: soft, nl liver, spleen, non-tender Results Result Diagram: 07/25/18 0415 07/25/18 0415 Results 24hrs Laboratory Tests Test 07/26/18 14:34 Gentamicin Level Trough 2.0 Medications Medication Current Medications Bisacodyl (Dulcolax Supp) 10 mg DAILY [place] Last administered on 07/26/18at 09:52; Admin Dose 10 MG; Start 07/19/18 at 09:00 Multivitamins Therapeutic (Theragran) 1 tab DAILY GTB Last administered on 07/26/18 09:52; Admin Dose 1 TAB; Start 07/19/18 at 09:00 Quetiapine Fumarate (Seroquel) 50 mg BID GTB Last administered on 07/26/18 09:52; Admin Dose 50 MG; Start 07/18/18 at 21:00 Zinc Sulfate (Zinc Sulfate) 220 mg DAILY GTB Last administered on 07/26/18 09:52; Admin Dose 220 MG; Start 07/19/18 at 09:00 IV Flush (NS 3 ml) 3 ml PER PROTOCOL IV ; Start 07/18/18 at 18:30 Ondansetron HCl (Zofran Inj) 4 mg Q6H PRN IV NAUSEA AND/OR VOMITING Last administered on 07/23/18 21:38; Admin Dose 4 MG; Start 07/18/18 at 18:30 Albuterol (Proventil 0.083% (Neb)) 2.5 mg Q2H RESP THERAPY PRN NEB SHORTNESS OF BREATH Last administered on 07/20/18 23:05; Admin Dose 2.5 MG; Start 07/18/18 at 18:30 Ipratropium [place] (Atrovent 0.02% (Neb)) 0.5 mg Q2H RESP THERAPY PRN NEB SHORTNESS OF BREATH Last administered on 07/20/18 03:25; Admin Dose 0.5 MG; Start 07/18/18 at 18:30 Hydromorphone HCl (Dilaudid) 0.5 mg Q4H PRN IV PAIN LEVEL 7-10 Last administered on 07/26/18 17:17; Admin Dose 0.5 MG; Start 07/18/18 at 18:30 Acetaminophen (Tylenol Liquid) 650 mg Q6H PRN GTB PAIN LEVEL 1-3 OR FEVER Last administered on 07/24/18 12:05; Admin Dose 650 MG; Start 07/19/18 at 10:30 Acetaminophen/ Hydrocodone Bitart ([place] (5/325)) 1 tab Q6H PRN GTB PAIN LEVEL 4-6 Last administered on 07/26/18 13:57; Admin Dose 1 TAB; Start 07/19/18 at 12:30 Docusate Sodium (Colace Liquid Cup) 100 mg Q12 PRN GTB CONSTIPATION Last administered on 07/26/18 09:52; Admin Dose 100 MG; Start 07/19/18 at 08:00 Docusate Sodium (Colace Liquid Cup) 100 mg QHS GTB Last administered on 07/25/18 21:23; Admin Dose 100 MG; Start 07/19/18 at 21:00 IV Flush (NS 10 ml) 10 ml PRN PRN IV FLUSH LINE; Start 07/19/18 at 18:30 Levetiracetam (Keppra Liquid) 500 mg Q12 GTB Last administered on 07/26/18 09:51; Admin Dose 500 MG; Start 07/20/18 at 21:00 Gentamicin Sulfate (Gentamicin Iv Per Pharmacy) GENTAMICIN PER PHARMACY NOTE XX ; Start 07/20/18 at 14:00 Gentamicin Sulfate 180 mg/ Sodium Chloride 104.5 ml @ 104.5 mls/ hr Q72H IVPB Last administered on 07/26/18 17:16; Admin Dose 104.5 MLS/HR; Start 07/20/18 at 16:00 Mupirocin (Bactroban) 1 applic BID TOP Last administered on 07/26/18 09:53; Admin Dose 1 APPLIC; Start 07/21/18 at 21:00 Metronidazole (Flagyl) 500 mg Q8 PO Last administered on 07/26/18 13:57; Admin Dose 500 MG; Start 07/21/18 at 14:00 Sodium Hypochlorite (Dakins Diluted (1/40)) 1 applic BID TP Last administered on 07/26/18 09:52; Admin Dose 1 APPLIC; Start 07/22/18 at 09:00 Collagenase (Santyl) 1 applic BID TOP Last administered on 07/26/18 09:53; Admin Dose 1 APPLIC; Start 07/22/18 at 09:00 Famotidine (Pepcid Iv) 20 mg BID IV Last administered on 07/26/18 09:52; Admin Dose 20 MG; Start 07/23/18 at 21:00 Epoetin [place]-epbx (Retacrit (Non-Esrd)) 10,000 unit MoWeFr@1700 SC Last administered on 07/23/18 19:43; Admin Dose 10,000 UNIT; Start 07/23/18 at 18:30 Norepinephrine 250 ml @ 1.875 mls/ hr TITRATE IV ; Start 07/23/18 at 17:30 Metoclopramide HCl (Reglan) 5 mg TID IV Last administered on 07/26/18at 13:57; Admin Dose 5 MG; Start 07/24/18 at 09:00 Potassium Chloride/Dextrose 1,000 ml @ 100 mls/hr Q10H IV Last administered on 07/26/18at 09:54; Admin Dose 100 MLS/HR; Start 07/24/18 at 15:30 OPAL STRATTON MD Jul 26, 2018 18:21
[2018-07-26] MEDS: DOCUSATE SODIUM 10 MG/ML (10ML CUP) GTB SCH (20:25)
[2018-07-27] VITALS (21 sets, daily range): BP systolic 122–148; BP diastolic 75–91; PULSE 76–105; RESP 17–26
[2018-07-27] MEDS: HYDROmorphONE 0.5 MG/0.5 ML SYG IV PRN ×6 (01:24→22:01)
[2018-07-27] MEDS: D5W + KCL 20 MEQ 1,000 ML IV SCH ×2 (03:08→09:25)
[2018-07-27] MEDS: metroNIDAZOLE 500 MG TAB PO SCH ×3 (05:33→21:44)
--- NOTE | 2018-07-27 05:45 | PN ---
Date/Time of Note Date/Time of Note DATE: 07/27/18 TIME: 05:45 Assessment/Plan VTE Prophylaxis Risk score (from [facility] [place] [facility])>0 risk: 6 SCD applied (from [facility] [place]): No SCD contraindicated: other Pharmacological prophylaxis: other Pharm contraindication: other Lines/Catheters IV Catheter Type (from [facility]): PICC Line Central line still needed: Yes Assessment/Plan Assessment/Plan - Anemia multifactorial, chronic disease and blood loss. S/p blood transfusion, continue Epogen. - Possible GI bleed. Dr. Borjas is following in gastroenterology consultation. - Ileus versus small bowel obstruction. - Sepsis with shock injury to possible healthcare acquired pneumonia and UTI, continue abx per ID. Dr. Maciel is following in infection disease consultation. - Acute on chronic renal failure. Continue to monitor BUN and creatinine. Dr. Barker is following in nephrology consultation. - Ventilator dependent respiratory failure, continue pulmonary toilet and bronchodilators. Dr Ames is following in pulmonology consultation. - Neurogenic bladder with suprapubic catheter. - Dysphagia with gastrostomy tube. - Multiple decubitus ulcers present on admission. - Cervical spine injury with paraplegia. - Bipolar disorder with psychosis. - Hx of right nephrectomy - Hx of left renal nephrolithiasis, hx of lithotripsy with insertion and subsequent removal of ureteral JJ stent. Further recommendations based on clinical course. Plan of care discussed with Dr. Barreto. Result Diagram: 07/25/18 0415 07/25/18 0415 Results 24hrs Laboratory Tests Test 07/26/18 14:34 07/26/18 17:30 Gentamicin Level Trough 2.0 Gentamicin Level Peak 16.8 H Subjective 24 Hr Interval Summary Free Text/Dictation nad afebrile no new events reported last night dw staff Subjective hx not possible: pt non-verbal Constitutional: requiring O2 Respiratory: no complaints Cardiovascular: no complaints Gastrointestinal: no complaints Psychological: nl mood/affect Exam/Review of Systems Exam Vitals Vital Signs Date Temp Pulse Resp B/P (MAP) Pulse Ox O2 O2 Flow FiO2 Time Delivery Rate 07/27/18 106 23 97 40 05:10 07/27/18 98.8 124/75 00:00 (91) 07/26/18 Mechanical 16:09 Ventilator Intake and Output 07/26/18 07/26/18 07/27/18 1515:00 23:00 07:00 IntakeIntake Total 820 ml 220 ml OutputOutput Total 1950 ml 2600 ml 1500 ml BalanceBalance -1130 ml -2380 ml -1500 ml Constitutional: alert, non-verbal, frail Psych: nl mood/affect Eyes: nl lids, nl sclera ENMT: nl external ears & nose Neck: non-tender, other (trach intact) Respiratory: clear to auscultation Cardiovascular: nl pulses, other (s1s2) Gastrointestinal: soft, non-tender, other (GT intact) Musculoskeletal: muscle weakness, range of motion Extremities: normal pulses Neurological: confused Lymph: nontender Results Results 24hrs Laboratory Tests Test 07/26/18 14:34 07/26/18 17:30 Gentamicin Level Trough 2.0 Gentamicin Level Peak 16.8 H Medications Medication Current Medications Bisacodyl (Dulcolax Supp) 10 mg DAILY [place] Last administered on 07/26/18 09:52; Admin Dose 10 MG; Start 07/19/18 at 09:00 Multivitamins Therapeutic (Theragran) 1 tab DAILY GTB Last administered on 07/26/18at 09:52; Admin Dose 1 TAB; Start 07/19/18 at 09:00 Quetiapine Fumarate (Seroquel) 50 mg BID GTB Last administered on 07/26/18at 20:15; Admin Dose 50 MG; Start 07/18/18 at 21:00 Zinc Sulfate (Zinc Sulfate) 220 mg DAILY GTB Last administered on 07/26/18 09:52; Admin Dose 220 MG; Start 07/19/18 at 09:00 IV Flush (NS 3 ml) 3 ml PER PROTOCOL IV ; Start 07/18/18 at 18:30 Ondansetron HCl (Zofran Inj) 4 mg Q6H PRN IV NAUSEA AND/OR VOMITING Last administered on 07/23/18at 21:38; Admin Dose 4 MG; Start 07/18/18 at 18:30 Albuterol (Proventil 0.083% (Neb)) 2.5 mg Q2H RESP THERAPY PRN NEB SHORTNESS OF BREATH Last administered on 07/20/18at 23:05; Admin Dose 2.5 MG; Start 07/18/18 at 18:30 Ipratropium [place] (Atrovent 0.02% (Neb)) 0.5 mg Q2H RESP THERAPY PRN NEB SHORTNESS OF BREATH Last administered on 07/20/18 03:25; Admin Dose 0.5 MG; Start 07/18/18 at 18:30 Hydromorphone HCl (Dilaudid) 0.5 mg Q4H PRN IV PAIN LEVEL 7-10 Last administered on 07/27/18 05:33; Admin Dose 0.5 MG; Start 07/18/18 at 18:30 Acetaminophen (Tylenol Liquid) 650 mg Q6H PRN GTB PAIN LEVEL 1-3 OR FEVER Last administered on 07/24/18 12:05; Admin Dose 650 MG; Start 07/19/18 at 10:30 Acetaminophen/ Hydrocodone Bitart ([place] (5/325)) 1 tab Q6H PRN GTB PAIN LEVEL 4-6 Last administered on 07/26/18 20:15; Admin Dose 1 TAB; Start 07/19/18 at 12:30 Docusate Sodium (Colace Liquid Cup) 100 mg Q12 PRN GTB CONSTIPATION Last administered on 07/26/18 09:52; Admin Dose 100 MG; Start 07/19/18 at 08:00 Docusate Sodium (Colace Liquid Cup) 100 mg QHS GTB Last administered on 07/26/18 20:25; Admin Dose 100 MG; Start 07/19/18 at 21:00 IV Flush (NS 10 ml) 10 ml PRN PRN IV FLUSH LINE; Start 07/19/18 at 18:30 Levetiracetam (Keppra Liquid) 500 mg Q12 GTB Last administered on 07/26/18 20:14; Admin Dose 500 MG; Start 07/20/18 at 21:00 Gentamicin Sulfate (Gentamicin Iv Per Pharmacy) GENTAMICIN PER PHARMACY NOTE XX ; Start 07/20/18 at 14:00 Gentamicin Sulfate 180 mg/ Sodium Chloride 104.5 ml @ 104.5 mls/ hr Q72H IVPB Last administered on 07/26/18 17:16; Admin Dose 104.5 MLS/HR; Start 07/20/18 at 16:00 Mupirocin (Bactroban) 1 applic BID TOP Last administered on 07/26/18 21:31; Admin Dose 1 APPLIC; Start 07/21/18 at 21:00 Metronidazole (Flagyl) 500 mg Q8 PO Last administered on 07/27/18 05:33; Admin Dose 500 MG; Start 07/21/18 at 14:00 Sodium Hypochlorite (Dakins Diluted ()) 1 applic BID TP Last administered on 07/26/18 21:31; Admin Dose 1 APPLIC; Start 07/22/18 at 09:00 Collagenase (Santyl) 1 applic BID TOP Last administered on 07/26/18 20:13; Admin Dose 1 APPLIC; Start 07/22/18 at 09:00 Famotidine (Pepcid Iv) 20 mg BID IV Last administered on 07/26/18 20:14; Admin Dose 20 MG; Start 07/23/18 at 21:00 Epoetin [place]-epbx (Retacrit (Non-Esrd)) 10,000 unit MoWeFr@1700 SC Last administered on 07/23/18 19:43; Admin Dose 10,000 UNIT; Start 07/23/18 at 18:30 Norepinephrine 250 ml @ 1.875 mls/ hr TITRATE IV ; Start 07/23/18 at 17:30 Metoclopramide HCl (Reglan) 5 mg TID IV Last administered on 07/26/18 20:14; Admin Dose 5 MG; Start 07/24/18 at 09:00 Potassium Chloride/Dextrose 1,000 ml @ 100 mls/hr Q10H IV Last administered on 07/27/18 03:08; Admin Dose 100 MLS/HR; Start 07/24/18 at 15:30 NAE VELAZCO Jul 27, 2018 05:45
[2018-07-27] MEDS: FAMOTIDINE 20 MG INJ IV SCH ×2 (09:25→21:42)
[2018-07-27] MEDS: ZINC SULFATE 220 MG CAP GTB SCH (09:25)
[2018-07-27] MEDS: BISACODYL 10 MG SUPP PR SCH (09:25)
[2018-07-27] MEDS: METOCLOPRAMIDE 10 MG INJ IV SCH ×3 (09:25→21:42)
[2018-07-27] MEDS: DOCUSATE SODIUM 10 MG/ML (10ML CUP) GTB PRN (09:25)
[2018-07-27] MEDS: LEVETIRACETAM (100 MG/ML) 5ML CUP GTB SCH ×2 (09:25→21:41)
[2018-07-27] MEDS: QUETIAPINE 25 MG TAB GTB SCH ×2 (09:25→21:41)
[2018-07-27] MEDS: MULTIVITAMINS THERAPEUTIC TAB GTB SCH (09:25)
[2018-07-27] MEDS: MUPIROCIN 2% 22 GM OINT TOP SCH ×2 (09:26→21:43)
[2018-07-27] MEDS: DAKINS 0.0125%(1/40) 473 ML SOLUTION TP SCH ×2 (09:26→21:43)
[2018-07-27] MEDS: COLLAGENASE 5 GM (UD JAR) TOP SCH ×2 (09:26→21:43)
[2018-07-27] MEDS: BALSAM PERU/CASTOR OIL 60 GM TUBE TOP SCH ×2 (09:26→21:43)
--- NOTE | 2018-07-27 11:04 | CONS ---
Assessment/Plan Assessment/Plan Hospital Course (Demo Recall) No acute events, looks comfortable no fevers overnight Antimicrobials: Gentamicin, Flagyl Microbiology: Urine culture grew Acinetobacter susceptible to gentamicin tobramycin and Bactrim, blood cultures negative Allergies: Tetracyclines Indwelling: Trach, PEG, PICC line, suprapubic catheter CT abdomen pelvis revealed bibasilar atelectasis and small effusions. Small ascites. Left hydroureter due to multiple small 2 mm stones in the course of the ureter cannot rule out pyelonephritis. Gastrostomy tube in the distended stomach. Physical examination: Chronically ill-appearing wasted middle-aged man who is awake in no distress. Head atraumatic normocephalic sclera nonicteric vehicle mucosa dry neck is supple tracheostomy present chest rise symmetrical breath sounds diminished the bases. Heart: S1-S2. Abdomen soft bowel sounds present. Extremities wasted contractured Assessment: 1. Resolving sepsis, s/p shock 2. Recurrent UTI/acute pyelonephritis 3. Acute on chronic respiratory failure ?PNA 4. Acute on chronic kidney disease 5. Incomplete quadriplegia 6. Anemia and thrombocytopenia 7. History of left breast nephrectomy 8. Multiple chronic decubitus ulcers 9. Diarrhea, rule out C. difficile 10. MRSA colonization of the naris Plan: Stable, continue antibiotics for couple more days Consultation Date/Type/Reason Admit Date/Time Jul 18, 2018 at 13:59 Initial Consult Date 07/18/18 Type of Consult id Requesting Provider: JOSÉ ANTONIO MIRZA MD Date/Time of Note DATE: 07/27/18 TIME: 11:03 Exam/Review of Systems Exam Vitals Vital Signs Date Temp Pulse Resp B/P (MAP) Pulse Ox O2 O2 Flow FiO2 Time Delivery Rate 07/27/18 104 22 97 40 09:22 07/27/18 Mechanical 07:43 Ventilator 07/27/18 98.8 129/76 07:42 (93) Intake and Output 07/26/18 07/26/18 07/27/18 1515:00 23:00 07:00 IntakeIntake Total 820 ml 924.5 ml OutputOutput Total 1950 ml 2600 ml 1500 ml BalanceBalance -1130 ml -1675.5 ml -1500 ml Results Result Diagram: 07/27/18 0558 07/27/18 0842 Results 24hrs Laboratory Tests Test 07/26/18 14:34 07/26/18 17:30 07/27/18 05:58 07/27/18 08:42 Gentamicin Level 2.0 Trough Gentamicin Level 16.8 H Peak White Blood Count 6.0 Red Blood Count 2.97 L Hemoglobin 8.1 L Hematocrit 28.8 L Mean Corpuscular 97.0 Volume Mean Corpuscular 27.3 L Hemoglobin Mean Corpuscular 28.1 L Hemoglobin Concent Red Cell 18.6 H Distribution Width Platelet Count 118 L Mean Platelet Volume 12.3 H Immature 0.700 H Granulocytes % Neutrophils % 87.0 H Lymphocytes % 3.2 L Monocytes % 6.7 Eosinophils % 2.2 Basophils % 0.2 Nucleated Red Blood 0.0 Cells % Immature 0.040 H Granulocytes # Neutrophils # 5.2 Lymphocytes # 0.2 L Monocytes # 0.4 Eosinophils # 0.1 Basophils # 0.0 Nucleated Red Blood 0.0 Cells # Sodium Level 142 Potassium Level 5.2 H Chloride Level 114 H Carbon Dioxide Level 20 L Anion Gap 8 Blood Urea Nitrogen 62 H Creatinine 1.57 H Est Glomerular 49 L Filtrat Rate mL/min Glucose Level 121 Calcium Level 8.3 L Medications Medication Current Medications Bisacodyl (Dulcolax Supp) 10 mg DAILY [place] Last administered on 07/27/18at 09:25; Admin Dose 10 MG; Start 07/19/18 at 09:00 Multivitamins Therapeutic (Theragran) 1 tab DAILY GTB Last administered on 07/27/18 09:25; Admin Dose 1 TAB; Start 07/19/18 at 09:00 Quetiapine Fumarate (Seroquel) 50 mg BID GTB Last administered on 07/27/18 09:25; Admin Dose 50 MG; Start 07/18/18 at 21:00 Zinc Sulfate (Zinc Sulfate) 220 mg DAILY GTB Last administered on 07/27/18 09:25; Admin Dose 220 MG; Start 07/19/18 at 09:00 IV Flush (NS 3 ml) 3 ml PER PROTOCOL IV ; Start 07/18/18 at 18:30 Ondansetron HCl (Zofran Inj) 4 mg Q6H PRN IV NAUSEA AND/OR VOMITING Last administered on 07/23/18at 21:38; Admin Dose 4 MG; Start 07/18/18 at 18:30 Albuterol (Proventil 0.083% (Neb)) 2.5 mg Q2H RESP THERAPY PRN NEB SHORTNESS OF BREATH Last administered on 07/20/18 23:05; Admin Dose 2.5 MG; Start 07/18/18 at 18:30 Ipratropium [place] (Atrovent 0.02% (Neb)) 0.5 mg Q2H RESP THERAPY PRN NEB SHORTNESS OF BREATH Last administered on 07/20/18 03:25; Admin Dose 0.5 MG; Start 07/18/18 at 18:30 Hydromorphone HCl (Dilaudid) 0.5 mg Q4H PRN IV PAIN LEVEL 7-10 Last administered on 07/27/18 09:26; Admin Dose 0.5 MG; Start 07/18/18 at 18:30 Acetaminophen (Tylenol Liquid) 650 mg Q6H PRN GTB PAIN LEVEL 1-3 OR FEVER Last administered on 07/24/18 12:05; Admin Dose 650 MG; Start 07/19/18 at 10:30 Acetaminophen/ Hydrocodone Bitart ([place] (5/325)) 1 tab Q6H PRN GTB PAIN LEVEL 4-6 Last administered on 07/26/18 20:15; Admin Dose 1 TAB; Start 07/19/18 at 12:30 Docusate Sodium (Colace Liquid Cup) 100 mg Q12 PRN GTB CONSTIPATION Last administered on 07/27/18 09:25; Admin Dose 100 MG; Start 07/19/18 at 08:00 Docusate Sodium (Colace Liquid Cup) 100 mg QHS GTB Last administered on 07/26/18 20:25; Admin Dose 100 MG; Start 07/19/18 at 21:00 IV Flush (NS 10 ml) 10 ml PRN PRN IV FLUSH LINE; Start 07/19/18 at 18:30 Levetiracetam (Keppra Liquid) 500 mg Q12 GTB Last administered on 07/27/18 09:25; Admin Dose 500 MG; Start 07/20/18 at 21:00 Gentamicin Sulfate (Gentamicin Iv Per Pharmacy) GENTAMICIN PER PHARMACY NOTE XX ; Start 07/20/18 at 14:00 Gentamicin Sulfate 180 mg/ Sodium Chloride 104.5 ml @ 104.5 mls/ hr Q72H IVPB Last administered on 07/26/18 17:16; Admin Dose 104.5 MLS/HR; Start 07/20/18 at 16:00 Mupirocin (Bactroban) 1 applic BID TOP Last administered on 07/27/18 09:26; Admin Dose 1 APPLIC; Start 07/21/18 at 21:00 Metronidazole (Flagyl) 500 mg Q8 PO Last administered on 07/27/18 05:33; Admin Dose 500 MG; Start 07/21/18 at 14:00 Sodium Hypochlorite (Dakins Diluted ()) 1 applic BID TP Last administered on 07/27/18 09:26; Admin Dose 1 APPLIC; Start 07/22/18 at 09:00 Collagenase (Santyl) 1 applic BID TOP Last administered on 07/27/18 09:26; Admin Dose 1 APPLIC; Start 07/22/18 at 09:00 Famotidine (Pepcid Iv) 20 mg BID IV Last administered on 07/27/18 09:25; Admin Dose 20 MG; Start 07/23/18 at 21:00 Epoetin Prince-epbx (Retacrit (Non-Esrd)) 10,000 unit MoWeFr@1700 SC Last administered on 07/23/18 19:43; Admin Dose 10,000 UNIT; Start 07/23/18 at 18:30 Norepinephrine 250 ml @ 1.875 mls/ hr TITRATE IV ; Start 07/23/18 at 17:30 Metoclopramide HCl (Reglan) 5 mg TID IV Last administered on 07/27/18 09:25; Admin Dose 5 MG; Start 07/24/18 at 09:00 Potassium Chloride/Dextrose 1,000 ml @ 100 mls/hr Q10H IV Last administered on 07/27/18 09:25; Admin Dose 100 MLS/HR; Start 07/24/18 at 15:30 REGINALDO CHERY NP Jul 27, 2018 11:04
[2018-07-27] MEDS: HYDROCODONE/APAP (5/325) TAB GTB PRN (13:18)
--- NOTE | 2018-07-27 16:27 | CONS ---
Assessment/Plan Assessment/Plan Assessment/Plan (Daily) 1. Acute Renal failure with severe Uremia, BUN trended down to 114 today 2. Septic shock on Levophed due to PNA and UTI 3. PNA concerned about HCAP 4. UTI 5. 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 ventilator dependent respiratory failure with tracheostomy 7. dysphagia with G-tube 8. chronic kidney disease III 9. history of right nephrectomy 10. left renal nephrolithiasis 11. bipolar disorder 12. Severe Anemia possibly due to Combination of Anemia of CKD + acute blood loss anemia s/p PRBC transfusion during this admission Plan: IV abx for Septic shock, Renally dose all abx and monitor electrolytes Change IVF to D5 W at 80 cc/hr x 2 liter then stop SP IV albumin 25% 100ml Q 8 hr x 3 doses We will continue to follow up Consultation Date/Type/Reason Admit Date/Time Jul 18, 2018 at 13:59 Initial Consult Date 07/18/18 Type of Consult NEPHROLOGY Requesting Provider: JOSÉ ANTONIO MIRZA MD Date/Time of Note DATE: 07/27/18 TIME: 16:27 Exam/Review of Systems Exam Vitals Vital Signs Date Temp Pulse Resp B/P (MAP) Pulse Ox O2 O2 Flow FiO2 Time Delivery Rate 07/27/18 98.0 88 20 146/85 98 Mechanical 16:00 (105) Ventilator 07/27/18 40 15:23 Intake and Output 07/26/18 07/26/18 07/27/18 1515:00 23:00 07:00 IntakeIntake Total 820 ml 924.5 ml OutputOutput Total 1950 ml 2600 ml 1500 ml BalanceBalance -1130 ml -1675.5 ml -1500 ml Results Result Diagram: 07/27/18 0558 07/27/18 0842 Results 24hrs Laboratory Tests Test 07/26/18 17:30 07/27/18 05:58 07/27/18 08:42 Gentamicin Level Peak 16.8 H White Blood Count 6.0 Red Blood Count 2.97 L Hemoglobin 8.1 L Hematocrit 28.8 L Mean Corpuscular Volume 97.0 Mean Corpuscular Hemoglobin 27.3 L Mean Corpuscular Hemoglobin Concent 28.1 L Red Cell Distribution Width 18.6 H Platelet Count 118 L Mean Platelet Volume 12.3 H Immature Granulocytes % 0.700 H Neutrophils % 87.0 H Lymphocytes % 3.2 L Monocytes % 6.7 Eosinophils % 2.2 Basophils % 0.2 Nucleated Red Blood Cells % 0.0 Immature Granulocytes # 0.040 H Neutrophils # 5.2 Lymphocytes # 0.2 L Monocytes # 0.4 Eosinophils # 0.1 Basophils # 0.0 Nucleated Red Blood Cells # 0.0 Sodium Level 142 Potassium Level 5.2 H Chloride Level 114 H Carbon Dioxide Level 20 L Anion Gap 8 Blood Urea Nitrogen 62 H Creatinine 1.57 H Est Glomerular Filtrat Rate mL/min 49 L Glucose Level 121 Calcium Level 8.3 L Medications Medication Current Medications Bisacodyl (Dulcolax Supp) 10 mg DAILY [place] Last administered on 07/27/18 09:25; Admin Dose 10 MG; Start 07/19/18 at 09:00 Multivitamins Therapeutic (Theragran) 1 tab DAILY GTB Last administered on 09:25; Admin Dose 1 TAB; Start 07/19/18 at 09:00 Quetiapine Fumarate (Seroquel) 50 mg BID GTB Last administered on 07/27/18 09:25; Admin Dose 50 MG; Start 07/18/18 at 21:00 Zinc Sulfate (Zinc Sulfate) 220 mg DAILY GTB Last administered on 07/27/18 09:25; Admin Dose 220 MG; Start 07/19/18 at 09:00 IV Flush (NS 3 ml) 3 ml PER PROTOCOL IV ; Start 07/18/18 at 18:30 Ondansetron HCl (Zofran Inj) 4 mg Q6H PRN IV NAUSEA AND/OR VOMITING Last administered on 07/23/18at 21:38; Admin Dose 4 MG; Start 07/18/18 at 18:30 Albuterol (Proventil 0.083% (Neb)) 2.5 mg Q2H RESP THERAPY PRN NEB SHORTNESS OF BREATH Last administered on 07/20/18 23:05; Admin Dose 2.5 MG; Start 07/18/18 at 18:30 Ipratropium [place] (Atrovent 0.02% (Neb)) 0.5 mg Q2H RESP THERAPY PRN NEB SHORTNESS OF BREATH Last administered on 07/20/18 03:25; Admin Dose 0.5 MG; Start 07/18/18 at 18:30 Hydromorphone HCl (Dilaudid) 0.5 mg Q4H PRN IV PAIN LEVEL 7-10 Last administered on 07/27/18 13:18; Admin Dose 0.5 MG; Start 07/18/18 at 18:30 Acetaminophen (Tylenol Liquid) 650 mg Q6H PRN GTB PAIN LEVEL 1-3 OR FEVER Last administered on 07/24/18 12:05; Admin Dose 650 MG; Start 07/19/18 at 10:30 Acetaminophen/ Hydrocodone Bitart ([place] (5/325)) 1 tab Q6H PRN GTB PAIN LEVEL 4-6 Last administered on 07/27/18 13:18; Admin Dose 1 TAB; Start 07/19/18 at 12:30 Docusate Sodium (Colace Liquid Cup) 100 mg Q12 PRN GTB CONSTIPATION Last administered on 07/27/18 09:25; Admin Dose 100 MG; Start 07/19/18 at 08:00 Docusate Sodium (Colace Liquid Cup) 100 mg QHS GTB Last administered on 07/26/18 20:25; Admin Dose 100 MG; Start 07/19/18 at 21:00 IV Flush (NS 10 ml) 10 ml PRN PRN IV FLUSH LINE; Start 07/19/18 at 18:30 Levetiracetam (Keppra Liquid) 500 mg Q12 GTB Last administered on 07/27/18 09:25; Admin Dose 500 MG; Start 07/20/18 at 21:00 Gentamicin Sulfate (Gentamicin Iv Per Pharmacy) GENTAMICIN PER PHARMACY NOTE XX ; Start 07/20/18 at 14:00 Mupirocin (Bactroban) 1 applic BID TOP Last administered on 07/27/18 09:26; Admin Dose 1 APPLIC; Start 07/21/18 at 21:00 Metronidazole (Flagyl) 500 mg Q8 PO Last administered on 07/27/18 13:18; Admin Dose 500 MG; Start 07/21/18 at 14:00 Sodium Hypochlorite (Dakins Diluted ()) 1 applic BID TP Last administered on 07/27/18 09:26; Admin Dose 1 APPLIC; Start 07/22/18 at 09:00 Collagenase (Santyl) 1 applic BID TOP Last administered on 07/27/18 09:26; Admin Dose 1 APPLIC; Start 07/22/18 at 09:00 Famotidine (Pepcid Iv) 20 mg BID IV Last administered on 07/27/18at 09:25; Admin Dose 20 MG; Start 07/23/18 at 21:00 Epoetin [place]-epbx (Retacrit (Non-Esrd)) 10,000 unit MoWeFr@1700 SC Last administered on 07/23/18at 19:43; Admin Dose 10,000 UNIT; Start 07/23/18 at 18:30 Norepinephrine 250 ml @ 1.875 mls/ hr TITRATE IV ; Start 07/23/18 at 17:30 Metoclopramide HCl (Reglan) 5 mg TID IV Last administered on 07/27/18at 12:30; Admin Dose 5 MG; Start 07/24/18 at 09:00 Gentamicin Sulfate 100 ml @ 200 mls/hr Q72H IVPB ; Start 07/29/18 at 17:00 TIARA CISNEROS MD Jul 27, 2018 16:27
--- NOTE | 2018-07-27 17:02 | CONS ---
Assessment/Plan Assessment/Plan Assessment/Plan (Daily) Assessment/Plan (Daily) pital Course (Demo Recall) 42 year old paraplegic male presents from [facility] for sepsis secondary to pnuemonia and UTI was found to ileus vs SBO on KUB with one episode of coffee ground vomit. 1. Ileus vs SBO clinically resolved the patient is tolerating feeding 2. Anemia, acute on chronic recent is status post 1 unit of packed cell RBC transfusion 3. Acute on chronic renal failure -h/o rt nephrectomy 4. Sepsis secondary to pnuemonia and UTI 5. Pneumonia 6. UTI -Acinetobacter Baumannii 7. 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 Vent dependent respiratory failure 9. Dysphagia, s/p g tube 10. Bipolar disorder Plan Continue Pepcid Continue Reglan Increase feeding to 30 cc/h Suppository Dulcolax. I ordered a KUB to be done today it was not done Consultation Date/Type/Reason Admit Date/Time Jul 18, 2018 at 13:59 Initial Consult Date 07/18/18 Requesting Provider: JOSÉ ANTONIO MIRZA MD Date/Time of Note DATE: 07/27/18 TIME: 17:01 24 HR Interval Summary Constitutional: no complaints, improved Exam/Review of Systems Exam Vitals Vital Signs Date Temp Pulse Resp B/P (MAP) Pulse Ox O2 O2 Flow FiO2 Time Delivery Rate 07/27/18 98.0 88 20 146/85 98 Mechanical 16:00 (105) Ventilator 07/27/18 40 15:23 Intake and Output 07/26/18 07/26/18 07/27/18 1515:00 23:00 07:00 IntakeIntake Total 820 ml 924.5 ml OutputOutput Total 1950 ml 2600 ml 1500 ml BalanceBalance -1130 ml -1675.5 ml -1500 ml Constitutional: alert, oriented, well developed Psych: no complaints, nl mood/affect Head: normocephalic, atraumatic Eyes: nl conjunctiva, EOMI, nl lids, nl sclera, PERRL ENMT: nl external ears & nose, nl lips & teeth, nl nasal mucosa & septum, intubated Neck: supple, non-tender Respiratory: clear to auscultation, normal air movement Cardiovascular: regular rate and rhythm, nl pulses Gastrointestinal: soft, nl liver, spleen, non-tender Musculoskeletal: nl extremities to inspection, nl gait and stance Extremities: normal pulses Neurological: ORTHOPEDIC NURSE PRACTITIONER II-XII intact, nl mental status, nl speech, nl strength Skin: nl turgor; No rash or lesions Lymph: nl lymph nodes Results Result Diagram: 07/27/18 0558 07/27/18 0842 Results 24hrs Laboratory Tests Test 07/26/18 17:30 07/27/18 05:58 07/27/18 08:42 Gentamicin Level Peak 16.8 H White Blood Count 6.0 Red Blood Count 2.97 L Hemoglobin 8.1 L Hematocrit 28.8 L Mean Corpuscular Volume 97.0 Mean Corpuscular Hemoglobin 27.3 L Mean Corpuscular Hemoglobin Concent 28.1 L Red Cell Distribution Width 18.6 H Platelet Count 118 L Mean Platelet Volume 12.3 H Immature Granulocytes % 0.700 H Neutrophils % 87.0 H Lymphocytes % 3.2 L Monocytes % 6.7 Eosinophils % 2.2 Basophils % 0.2 Nucleated Red Blood Cells % 0.0 Immature Granulocytes # 0.040 H Neutrophils # 5.2 Lymphocytes # 0.2 L Monocytes # 0.4 Eosinophils # 0.1 Basophils # 0.0 Nucleated Red Blood Cells # 0.0 Sodium Level 142 Potassium Level 5.2 H Chloride Level 114 H Carbon Dioxide Level 20 L Anion Gap 8 Blood Urea Nitrogen 62 H Creatinine 1.57 H Est Glomerular Filtrat Rate mL/min 49 L Glucose Level 121 Calcium Level 8.3 L Medications Medication Current Medications Bisacodyl (Dulcolax Supp) 10 mg DAILY [place] Last administered on 07/27/18at 09:25; Admin Dose 10 MG; Start 07/19/18 at 09:00 Multivitamins Therapeutic (Theragran) 1 tab DAILY GTB Last administered on 07/27/18at 09:25; Admin Dose 1 TAB; Start 07/19/18 at 09:00 Quetiapine Fumarate (Seroquel) 50 mg BID GTB Last administered on 07/27/18at 09:25; Admin Dose 50 MG; Start 07/18/18 at 21:00 Zinc Sulfate (Zinc Sulfate) 220 mg DAILY GTB Last administered on 07/27/18at 09:25; Admin Dose 220 MG; Start 07/19/18 at 09:00 IV Flush (NS 3 ml) 3 ml PER PROTOCOL IV ; Start 07/18/18 at 18:30 Ondansetron HCl (Zofran Inj) 4 mg Q6H PRN IV NAUSEA AND/OR VOMITING Last administered on 07/23/18 21:38; Admin Dose 4 MG; Start 07/18/18 at 18:30 Albuterol (Proventil 0.083% (Neb)) 2.5 mg Q2H RESP THERAPY PRN NEB SHORTNESS OF BREATH Last administered on 07/20/18 23:05; Admin Dose 2.5 MG; Start 07/18/18 at 18:30 Ipratropium [place] (Atrovent 0.02% (Neb)) 0.5 mg Q2H RESP THERAPY PRN NEB SHORTNESS OF BREATH Last administered on 07/20/18 03:25; Admin Dose 0.5 MG; Start 07/18/18 at 18:30 Hydromorphone HCl (Dilaudid) 0.5 mg Q4H PRN IV PAIN LEVEL 7-10 Last adm inistered on 07/27/18 13:18; Admin Dose 0.5 MG; Start 07/18/18 at 18:30 Acetaminophen (Tylenol Liquid) 650 mg Q6H PRN GTB PAIN LEVEL 1-3 OR FEVER Last administered on 07/24/18 12:05; Admin Dose 650 MG; Start 07/19/18 at 10:30 Acetaminophen/ Hydrocodone Bitart ([place] (5/325)) 1 tab Q6H PRN GTB PAIN LEVEL 4-6 Last administered on 07/27/18 13:18; Admin Dose 1 TAB; Start 07/19/18 at 12:30 Docusate Sodium (Colace Liquid Cup) 100 mg Q12 PRN GTB CONSTIPATION Last administered on 07/27/18 09:25; Admin Dose 100 MG; Start 07/19/18 at 08:00 Docusate Sodium (Colace Liquid Cup) 100 mg QHS GTB Last administered on 07/26/18 20:25; Admin Dose 100 MG; Start 07/19/18 at 21:00 IV Flush (NS 10 ml) 10 ml PRN PRN IV FLUSH LINE; Start 07/19/18 at 18:30 Levetiracetam (Keppra Liquid) 500 mg Q12 GTB Last administered on 07/27/18 09:25; Admin Dose 500 MG; Start 07/20/18 at 21:00 Gentamicin Sulfate (Gentamicin Iv Per Pharmacy) GENTAMICIN PER PHARMACY NOTE XX ; Start 07/20/18 at 14:00 Mupirocin (Bactroban) 1 applic BID TOP Last administered on 07/27/18at 09:26; Admin Dose 1 APPLIC; Start 07/21/18 at 21:00 Metronidazole (Flagyl) 500 mg Q8 PO Last administered on 07/27/18at 13:18; Admin Dose 500 MG; Start 07/21/18 at 14:00 Sodium Hypochlorite (Dakins Diluted ()) 1 applic BID TP Last administered on 07/27/18 09:26; Admin Dose 1 APPLIC; Start 07/22/18 at 09:00 Collagenase (Santyl) 1 applic BID TOP Last administered on 07/27/18 09:26; Admin Dose 1 APPLIC; Start 07/22/18 at 09:00 Famotidine (Pepcid Iv) 20 mg BID IV Last administered on 07/27/18at 09:25; Admin Dose 20 MG; Start 07/23/18 at 21:00 Epoetin [place]-epbx (Retacrit (Non-Esrd)) 10,000 unit MoWeFr@1700 SC Last administered on 07/23/18at 19:43; Admin Dose 10,000 UNIT; Start 07/23/18 at 18:30 Norepinephrine 250 ml @ 1.875 mls/ hr TITRATE IV ; Start 07/23/18 at 17:30 Metoclopramide HCl (Reglan) 5 mg TID IV Last administered on 07/27/18at 12:30; Admin Dose 5 MG; Start 07/24/18 at 09:00 Gentamicin Sulfate 100 ml @ 200 mls/hr Q72H IVPB ; Start 07/29/18 at 17:00 OPAL STRATTON MD Jul 27, 2018 17:02
[2018-07-27] MEDS: EPOETIN ALFA-EPBX (NON-ESRD 10,000 UNIT/ML VIAL SC SCH (17:57)
--- NOTE | 2018-07-27 19:55 | PN ---
DATE: 07/27/2018 SUBJECTIVE: The patient is resting comfortably. He shows no signs of respiratory distress, being on long-term continuous ventilator support through tracheostomy. PHYSICAL EXAMINATION: VITAL SIGNS: Stable. No fever spikes. The most recent temperature shows a reading of 98.2, blood p ressure 122/77, pulse rate 91, respirations 22, pulse oximetry 98% saturation. NECK: Tracheal secretions are clear. No gross bleeding seen. HEART: Regular rhythm. CHEST: Breath sounds are diminished in the lower lung [place] with a few intermittent rales and rhonc hi. ABDOMEN: Soft. No distention seen. Tolerating tube feedings. Bowel sounds are present. EXTREMITIES: Show no edema. He is paraplegic. LABORATORY TESTS: Today show sodium 142, potassium 5.2, bicarbonate of 20, BUN 62, creatinine 1.57. BUN and creatinine are both decreasing. Glucose 121. CBC shows WBC 6000, hemoglobin 8.1, hematocri t 28.8, platelets decreased, but improving at 118,000. MEDICATIONS: The patient is on; 1. Gentamicin. 2. Flagyl. DIAGNOSTIC DATA: Chest x-ray shows bibasilar infiltrates and bilateral pleural effusions. Most of t hese changes seem to be chronic. IMPRESSION: 1. Sepsis. 2. Probable pneumonia. 3. Chronic ventilator dependent respiratory failure. 4. Chronic kidney disease with acute kidney injury, improving. 5. Chronic anemia. 6. History of nephrolithiasis. 7. 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 8. History of bipolar disorder. RECOMMENDATIONS: 1. Continue long-term ventilator support. 2. Continue antibiotics per infectious disease mortgage consultant. 3. Continue bronchodilator inhalation therapy. 4. Continue hydration. 5. Continue supportive therapy. Dictated By: HUMBERTO PEREZ MD SR/NTS Conf#: [id number] DID#: [id number] CC: JOSÉ ANTONIO MIRZA MD;*EndCC*
[2018-07-27] MEDS: DOCUSATE SODIUM 10 MG/ML (10ML CUP) GTB SCH (21:41)
[2018-07-28] VITALS (19 sets, daily range): BP systolic 116–167; BP diastolic 86–105; PULSE 81–132; RESP 18–35
[2018-07-28] MEDS: HYDROmorphONE 0.5 MG/0.5 ML SYG IV PRN ×5 (02:16→20:13)
[2018-07-28] MEDS: metroNIDAZOLE 500 MG TAB PO SCH ×3 (06:48→22:53)
[2018-07-28] MEDS: BISACODYL 10 MG SUPP PR SCH (09:00)
[2018-07-28] MEDS: QUETIAPINE 25 MG TAB GTB SCH ×2 (09:47→22:53)
[2018-07-28] MEDS: ZINC SULFATE 220 MG CAP GTB SCH (09:48)
[2018-07-28] MEDS: METOCLOPRAMIDE 10 MG INJ IV SCH ×3 (09:48→22:53)
[2018-07-28] MEDS: HYDROCODONE/APAP (5/325) TAB GTB PRN (09:48)
[2018-07-28] MEDS: LEVETIRACETAM (100 MG/ML) 5ML CUP GTB SCH ×2 (09:48→22:53)
[2018-07-28] MEDS: FAMOTIDINE 20 MG INJ IV SCH ×2 (09:49→22:54)
[2018-07-28] MEDS: DAKINS 0.0125%(1/40) 473 ML SOLUTION TP SCH ×2 (09:49→22:55)
[2018-07-28] MEDS: MULTIVITAMINS THERAPEUTIC TAB GTB SCH (09:49)
[2018-07-28] MEDS: MUPIROCIN 2% 22 GM OINT TOP SCH ×2 (09:51→22:54)
[2018-07-28] MEDS: BALSAM PERU/CASTOR OIL 60 GM TUBE TOP SCH ×2 (09:51→22:54)
[2018-07-28] MEDS: COLLAGENASE 5 GM (UD JAR) TOP SCH ×2 (09:51→22:55)
--- NOTE | 2018-07-28 11:05 | CONS ---
Assessment/Plan Assessment/Plan Hospital Course (Demo Recall) ID PROGRESS NOTE CURRENT ABX: DAY # =>GENT IV + Flagyl 07/28/18 0604 07/28/18 0604 24H INTERVAL SUMMARY * VSS, NAD, no fevers - chronically ill appearing M w/(+)Trach * MICRO: (+)MRSA NARES, (+) UTI URINE CULTURE Final Organism 1 ACINETOBACTER BAUMANNII COLONY COUNT >100,000 CFU/ml * Acinetobacter susceptible to gentamicin tobramycin and Bactrim, blood cultures negative * Indwelling: Trach, PEG, PICC line, suprapubic catheter DIAGNOSTIC IMAGING * 07/27/18 CXR: There is aright-sided central line in place with its tip overlying the mid superior vena cava.. There is a endotracheal to in the midline. There are increased interstitial markings. There is bilateral pleural effusion as well as bilateral lung base consolidations. * CT abdomen pelvis revealed bibasilar atelectasis and small effusions. Small ascites. Left hydroureter due to multiple small 2 mm stones in the course of the ureter cannot rule out pyelonephritis. Gastrostomy tube in the distended stomach. PHYSICAL EXAMINATION: GENERAL: VSS, NAD HEENT: AT, NC, NECK: Supple, (+)Trach present CHEST: Rise symmetrical without dyspnea on observation HEART: Pulse RRR ABDOMEN: Benign EXTREMITIES: Warm, dry, wasted contractured SKIN: No rash, no diaphoresis == SEE PHOTOS MULTIPLE DECUBS ID ASSESSMENT 42 yo M admit with: 1. Resolving sepsis, s/p shock 2. Recurrent UTI/acute pyelonephritis 3. Acute on chronic respiratory failure ?PNA 4. Acute on chronic kidney disease 5. Incomplete quadriplegia 6. Anemia and thrombocytopenia 7. History of left nephrectomy 8. Multiple chronic decubitus ulcers 9. Diarrhea, rule out C. difficile (+)MRSA Nares ABX ALLERGIES: TETRACYCLINES INVASIVES: PIV CURRENT ABX: DAY # GENT IV + Flagyl ID RECOMMENDATIONS/PLAN: 1. Continue current ABX over the weekend 2. Continue supportive care . Consultation Date/Type/Reason Admit Date/Time Jul 18, 2018 at 13:59 Initial Consult Date 07/18/18 Requesting Provider: JOSÉ ANTONIO MIRZA MD Date/Time of Note DATE: 07/28/18 TIME: 11:05 Exam/Review of Systems Exam Vitals Vital Signs Date Temp Pulse Resp B/P (MAP) Pulse Ox O2 O2 Flow FiO2 Time Delivery Rate 07/28/18 99 08:00 07/28/18 98.9 28 148/92 99 07:43 (110) 07/28/18 40 04:50 07/27/18 Mechanical 17:07 Ventilator Intake and Output 07/27/18 07/27/18 07/28/18 1515:00 23:00 07:00 IntakeIntake Total 930 ml 780 ml OutputOutput Total 1100 ml 2900 ml BalanceBalance -170 ml -2120 ml Results Result Diagram: 07/28/18 0604 07/28/18 0604 Results 24hrs Laboratory Tests Test 07/28/18 05:00 07/28/18 06:04 Stool Occult Blood NEGATIVE White Blood Count 3.5 #L Red Blood Count 3.49 L Hemoglobin 9.4 L Hematocrit 33.8 L Mean Corpuscular Volume 96.8 Mean Corpuscular Hemoglobin 26.9 L Mean Corpuscular Hemoglobin Concent 27.8 L Red Cell Distribution Width 18.5 H Platelet Count 160 # Mean Platelet Volume 13.2 H Immature Granulocytes % 0.300 Neutrophils % 66.6 Lymphocytes % 12.4 L Monocytes % 15.3 H Eosinophils % 5.1 Basophils % 0.3 Nucleated Red Blood Cells % 0.0 Immature Granulocytes # 0.010 Neutrophils # 2.4 Lymphocytes # 0.4 L Monocytes # 0.5 Eosinophils # 0.2 Basophils # 0.0 Nucleated Red Blood Cells # 0.0 Sodium Level 146 H Potassium Level 5.1 Chloride Level 116 H Carbon Dioxide Level 22 Anion Gap 11 Blood Urea Nitrogen 53 H Creatinine 1.49 H Est Glomerular Filtrat Rate mL/min 52 L Glucose Level 99 Calcium Level 8.9 Medications Medication Current Medications Bisacodyl (Dulcolax Supp) 10 mg DAILY PA Last administered on 07/27/18at 09:25; Admin Dose 10 MG; Start 07/19/18 at 09:00 Multivitamins Therapeutic (Theragran) 1 tab DAILY GTB Last administered on 07/28/18at 09:49; Admin Dose 1 TAB; Start 07/19/18 at 09:00 Quetiapine Fumarate (Seroquel) 50 mg BID GTB Last administered on 07/28/18at 09:47; Admin Dose 50 MG; Start 07/18/18 at 21:00 Zinc Sulfate (Zinc Sulfate) 220 mg DAILY GTB Last administered on 07/28/18 09:48; Admin Dose 220 MG; Start 07/19/18 at 09:00 IV Flush (NS 3 ml) 3 ml PER PROTOCOL IV ; Start 07/18/18 at 18:30 Ondansetron HCl (Zofran Inj) 4 mg Q6H PRN IV NAUSEA AND/OR VOMITING Last administered on 07/23/18 21:38; Admin Dose 4 MG; Start 07/18/18 at 18:30 Albuterol (Proventil 0.083% (Neb)) 2.5 mg Q2H RESP THERAPY PRN NEB SHORTNESS OF BREATH Last administered on 07/20/18 23:05; Admin Dose 2.5 MG; Start 07/18/18 at 18:30 Ipratropium [place] (Atrovent 0.02% (Neb)) 0.5 mg Q2H RESP THERAPY PRN NEB SHORTNESS OF BREATH Last administered on 07/20/18 03:25; Admin Dose 0.5 MG; Start 07/18/18 at 18:30 Hydromorphone HCl (Dilaudid) 0.5 mg Q4H PRN IV PAIN LEVEL 7-10 Last administered on 07/28/18 06:49; Admin Dose 0.5 MG; Start 07/18/18 at 18:30 Acetaminophen (Tylenol Liquid) 650 mg Q6H PRN GTB PAIN LEVEL 1-3 OR FEVER Last administered on 07/24/18 12:05; Admin Dose 650 MG; Start 07/19/18 at 10:30 Acetaminophen/ Hydrocodone Bitart ([place] (5/325)) 1 tab Q6H PRN GTB PAIN LEVEL 4-6 Last administered on 07/28/18 09:48; Admin Dose 1 TAB; Start 07/19/18 at 12:30 Docusate Sodium (Colace Liquid Cup) 100 mg Q12 PRN GTB CONSTIPATION Last administered on 07/27/18 09:25; Admin Dose 100 MG; Start 07/19/18 at 08:00 Docusate Sodium (Colace Liquid Cup) 100 mg QHS GTB Last administered on 07/27/18 21:41; Admin Dose 100 MG; Start 07/19/18 at 21:00 IV Flush (NS 10 ml) 10 ml PRN PRN IV FLUSH LINE; Start 07/19/18 at 18:30 Levetiracetam (Keppra Liquid) 500 mg Q12 GTB Last administered on 07/28/18 09:48; Admin Dose 500 MG; Start 07/20/18 at 21:00 Gentamicin Sulfate (Gentamicin Iv Per Pharmacy) GENTAMICIN PER PHARMACY NOTE XX ; Start 07/20/18 at 14:00 Mupirocin (Bactroban) 1 applic BID TOP Last administered on 07/28/18 09:51; Ad min Dose 1 APPLIC; Start 07/21/18 at 21:00 Metronidazole (Flagyl) 500 mg Q8 PO Last administered on 07/28/18 06:48; Admin Dose 500 MG; Start 07/21/18 at 14:00 Sodium Hypochlorite (Dakins Diluted ()) 1 applic BID TP Last administered on 07/28/18 09:49; Admin Dose 1 APPLIC; Start 07/22/18 at 09:00 Collagenase (Santyl) 1 applic BID TOP Last administered on 07/28/18 09:51; Admin Dose 1 APPLIC; Start 07/22/18 at 09:00 Famotidine (Pepcid Iv) 20 mg BID IV Last administered on 07/28/18 09:49; Admin Dose 20 MG; Start 07/23/18 at 21:00 Epoetin Prince-epbx (Retacrit (Non-Esrd)) 10,000 unit MoWeFr@1700 SC Last administered on 07/27/18 17:57; Admin Dose 10,000 UNIT; Start 07/23/18 at 18:30 Norepinephrine 250 ml @ 1.875 mls/ hr TITRATE IV ; Start 07/23/18 at 17:30 Metoclopramide HCl (Reglan) 5 mg TID IV Last administered on 07/28/18 09:48; Admin Dose 5 MG; Start 07/24/18 at 09:00 Gentamicin Sulfate 100 ml @ 200 mls/hr Q72H IVPB ; Start 07/29/18 at 17:00 KELSI CERDA NP Jul 28, 2018 11:05
--- NOTE | 2018-07-28 12:13 | CONS ---
Assessment/Plan Assessment/Plan Assessment/Plan (Daily) Assessment/Plan (Daily) pital Course (Demo Recall) 42 year old paraplegic male presents from SNF for sepsis secondary to pnuemonia and UTI was found to ileus vs SBO on KUB with one episode of coffee ground vomit. 1. Ileus vs SBO clinically resolved the patient is tolerating feeding 2. Anemia, acute on chronic recent is status post 1 unit of packed cell RBC transfusion 3. Acute on chronic renal failure -h/o rt nephrectomy 4. Sepsis secondary to pnuemonia and UTI 5. Pneumonia 6. UTI -Acinetobacter Baumannii 7. 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 Vent dependent respiratory failure 9. Dysphagia, s/p g tube 10. Bipolar disorder 11. Anemia stable, stool for occult blood reported negative 12. Renal insufficiency kidney function improving Plan Continue Pepcid Continue Reglan Increase feeding to 30 cc/h Magnesium Site-Rite through the G-tube for impacted stool in the rectum Consultation Date/Type/Reason Admit Date/Time Jul 18, 2018 at 13:59 Initial Consult Date 07/18/18 Requesting Provider: JOSÉ ANTONIO MIRZA MD Date/Time of Note DATE: 07/28/18 TIME: 12:11 24 HR Interval Summary Free Text/Dictation Patient denies of nausea vomiting no abdominal pain He wants to eat Constitutional: no complaints, improved Exam/Review of Systems Exam Vitals Vital Signs Date Temp Pulse Resp B/P (MAP) Pulse Ox O2 O2 Flow FiO2 Time Delivery Rate 07/28/18 98.1 102 23 157/97 99 12:03 (117) 07/28/18 40 04:50 07/27/18 Mechanical 17:07 Ventilator Intake and Output 07/27/18 07/27/18 07/28/18 1515:00 23:00 07:00 IntakeIntake Total 930 ml 780 ml OutputOutput Total 1100 ml 2900 ml BalanceBalance -170 ml -2120 ml Constitutional: alert ENMT: intubated Gastrointestinal: soft, nl liver, spleen, non-tender Extremities: normal pulses Results Result Diagram: 07/28/18 0604 07/28/18 0604 Results 24hrs Laboratory Tests Test 07/28/18 05:00 07/28/18 06:04 Stool Occult Blood NEGATIVE White Blood Count 3.5 #L Red Blood Count 3.49 L Hemoglobin 9.4 L Hematocrit 33.8 L Mean Corpuscular Volume 96.8 Mean Corpuscular Hemoglobin 26.9 L Mean Corpuscular Hemoglobin Concent 27.8 L Red Cell Distribution Width 18.5 H Platelet Count 160 # Mean Platelet Volume 13.2 H Immature Granulocytes % 0.300 Neutrophils % 66.6 Lymphocytes % 12.4 L Monocytes % 15.3 H Eosinophils % 5.1 Basophils % 0.3 Nucleated Red Blood Cells % 0.0 Immature Granulocytes # 0.010 Neutrophils # 2.4 Lymphocytes # 0.4 L Monocytes # 0.5 Eosinophils # 0.2 Basophils # 0.0 Nucleated Red Blood Cells # 0.0 Sodium Level 146 H Potassium Level 5.1 Chloride Level 116 H Carbon Dioxide Level 22 Anion Gap 11 Blood Urea Nitrogen 53 H Creatinine 1.49 H Est Glomerular Filtrat Rate mL/min 52 L Glucose Level 99 Calcium Level 8.9 Medications Medication Current Medications Bisacodyl (Dulcolax Supp) 10 mg DAILY SD Last administered on 07/27/18at 09:25; Admin Dose 10 MG; Start 07/19/18 at 09:00 Multivitamins Therapeutic (Theragran) 1 tab DAILY GTB Last administered on 07/28/18at 09:49; Admin Dose 1 TAB; Start 07/19/18 at 09:00 Quetiapine Fumarate (Seroquel) 50 mg BID GTB Last administered on 07/28/18at 0 9:47; Admin Dose 50 MG; Start 07/18/18 at 21:00 Zinc Sulfate (Zinc Sulfate) 220 mg DAILY GTB Last administered on 07/28/18at 09:48; Admin Dose 220 MG; Start 07/19/18 at 09:00 IV Flush (NS 3 ml) 3 ml PER PROTOCOL IV ; Start 07/18/18 at 18:30 Ondansetron HCl (Zofran Inj) 4 mg Q6H PRN IV NAUSEA AND/OR VOMITING Last administered on 07/23/18at 21:38; Admin Dose 4 MG; Start 07/18/18 at 18:30 Albuterol (Proventil 0.083% (Neb)) 2.5 mg Q2H RESP THERAPY PRN NEB SHORTNESS OF BREATH Last administered on 07/20/18at 23:05; Admin Dose 2.5 MG; Start 07/18/18 at 18:30 Ipratropium [place] (Atrovent 0.02% (Neb)) 0.5 mg Q2H RESP THERAPY PRN NEB SHORTNESS OF BREATH Last administered on 07/20/18 03:25; Admin Dose 0.5 MG; Start 07/18/18 at 18:30 Hydromorphone HCl (Dilaudid) 0.5 mg Q4H PRN IV PAIN LEVEL 7-10 Last administered on 07/28/18 12:10; Admin Dose 0.5 MG; Start 07/18/18 at 18:30 Acetaminophen (Tylenol Liquid) 650 mg Q6H PRN GTB PAIN LEVEL 1-3 OR FEVER Last administered on 07/24/18 12:05; Admin Dose 650 MG; Start 07/19/18 at 10:30 Acetaminophen/ Hydrocodone Bitart ([place] (5/325)) 1 tab Q6H PRN GTB PAIN LEVEL 4-6 Last administered on 07/28/18 09:48; Admin Dose 1 TAB; Start 07/19/18 at 12:30 Docusate Sodium (Colace Liquid Cup) 100 mg Q12 PRN GTB CONSTIPATION Last administered on 07/27/18 09:25; Admin Dose 100 MG; Start 07/19/18 at 08:00 Docusate Sodium (Colace Liquid Cup) 100 mg QHS GTB Last administered on 07/27/18 21:41; Admin Dose 100 MG; Start 07/19/18 at 21:00 IV Flush (NS 10 ml) 10 ml PRN PRN IV FLUSH LINE; Start 07/19/18 at 18:30 Levetiracetam (Keppra Liquid) 500 mg Q12 GTB Last administered on 07/28/18 09:48; Admin Dose 500 MG; Start 07/20/18 at 21:00 Gentamicin Sulfate (Gentamicin Iv Per Pharmacy) GENTAMICIN PER PHARMACY NOTE XX ; Start 07/20/18 at 14:00 Mupirocin (Bactroban) 1 applic BID TOP Last administered on 07/28/18 09:51; Admin Dose 1 APPLIC; Start 07/21/18 at 21:00 Metronidazole (Flagyl) 500 mg Q8 PO Last administered on 07/28/18 06:48; Admin Dose 500 MG; Start 07/21/18 at 14:00 Sodium Hypochlorite (Dakins Diluted ()) 1 applic BID TP Last administered on 07/28/18 09:49; Admin Dose 1 APPLIC; Start 07/22/18 at 09:00 Collagenase (Santyl) 1 applic BID TOP Last administered on 07/28/18 09:51; Admin Dose 1 APPLIC; Start 07/22/18 at 09:00 Famotidine (Pepcid Iv) 20 mg BID IV Last administered on 07/28/18 09:49; Admin Dose 20 MG; Start 07/23/18 at 21:00 Epoetin Prince-epbx (Retacrit (Non-Esrd)) 10,000 unit MoWeFr@1700 SC Last administered on 07/27/18 17:57; Admin Dose 10,000 UNIT; Start 07/23/18 at 18:30 Norepinephrine 250 ml @ 1.875 mls/ hr TITRATE IV ; Start 07/23/18 at 17:30 Metoclopramide HCl (Reglan) 5 mg TID IV Last administered on 07/28/18at 12:10; Admin Dose 5 MG; Start 07/24/18 at 09:00 Gentamicin Sulfate 100 ml @ 200 mls/hr Q72H IVPB ; Start 07/29/18 at 17:00 OPAL STRATTON MD Jul 28, 2018 12:13
[2018-07-28] MEDS ORDERED: MAGNESIUM CITRATE 300 ML BTL PO ONE (13:00)
--- NOTE | 2018-07-28 14:18 | PN ---
Date/Time of Note Date/Time of Note DATE: 07/28/18 TIME: 14:18 Assessment/Plan VTE Prophylaxis [place] [facility] risk: 7 [place]CD applied [place] [facility] No SCD contraindicated: other Pharmacological prophylaxis: other Pharm contraindication: other Lines/Catheters IV C[facility]ter Type [facility]from [facility]): PICC Line Central line still needed: Yes Assessment/Plan Assessment/Plan - Anemia multifactorial, chronic disease and blood loss. S/p blood transfusion, continue Epogen. - Possible GI bleed. Dr. Borjas is following in gastroenterology consultation. - Ileus versus small bowel obstruction. - Sepsis with shock injury to possible healthcare acquired pneumonia and UTI, continue abx per ID. Dr. Maciel is following in infection disease consultation. - Acute on chronic renal failure. Continue to monitor BUN and creatinine. Dr. Barker is following in nephrology consultation. - Ventilator dependent respiratory failure, continue pulmonary toilet and bronchodilators. Dr Ames is following in pulmonology consultation. - Neurogenic bladder with suprapubic catheter. - Dysphagia with gastrostomy tube. - Multiple decubitus ulcers present on admission. - Cervical spine injury with paraplegia. - Bipolar disorder with psychosis. - Hx of right nephrectomy - Hx of left renal nephrolithiasis, hx of lithotripsy with insertion and subsequent removal of ureteral JJ stent. Further recommendations based on clinical course. Plan of care discussed with Dr. Barreto. Result Diagram: 07/28/18 0604 07/28/18 0604 Results 24hrs Laboratory Tests Test 07/28/18 05:00 07/28/18 06:04 Stool Occult Blood NEGATIVE White Blood Count 3.5 #L Red Blood Count 3.49 L Hemoglobin 9.4 L Hematocrit 33.8 L Mean Corpuscular Volume 96.8 Mean Corpuscular Hemoglobin 26.9 L Mean Corpuscular Hemoglobin Concent 27.8 L Red Cell Distribution Width 18.5 H Platelet Count 160 # Mean Platelet Volume 13.2 H Immature Granulocytes % 0.300 Neutrophils % 66.6 Lymphocytes % 12.4 L Monocytes % 15.3 H Eosinophils % 5.1 Basophils % 0.3 Nucleated Red Blood Cells % 0.0 Immature Granulocytes # 0.010 Neutrophils # 2.4 Lymphocytes # 0.4 L Monocytes # 0.5 Eosinophils # 0.2 Basophils # 0.0 Nucleated Red Blood Cells # 0.0 Sodium Level 146 H Potassium Level 5.1 Chloride Level 116 H Carbon Dioxide Level 22 Anion Gap 11 Blood Urea Nitrogen 53 H Creatinine 1.49 H Est Glomerular Filtrat Rate mL/min 52 L Glucose Level 99 Calcium Level 8.9 Subjective 24 Hr Interval Summary Free Text/Dictation NAD; afebrile; seems comfortable no evets reported last night\ dw staff Subjective hx not possible: pt non-verbal Constitutional: requiring O2 Eyes: no complaints ENT: no complaints Respiratory: no complaints Exam/Review of Systems Exam Vitals Vital Signs Date Temp Pulse Resp B/P (MAP) Pulse Ox O2 O2 Flow FiO2 Time Delivery Rate 07/28/18 98.1 102 23 157/97 99 12:03 (117) 07/28/18 40 04:50 07/27/18 Mechanical 17:07 Ventilator Intake and Output 07/27/18 07/27/18 07/28/18 1515:00 23:00 07:00 IntakeIntake Total 930 ml 780 ml OutputOutput Total 1100 ml 2900 ml BalanceBalance -170 ml -2120 ml Constitutional: alert, non-verbal Eyes: nl lids, nl sclera ENMT: nl external ears & nose Neck: non-tender, other (traach intact) Respiratory: diminished breath sounds Cardiovascular: nl pulses, other (s1s2) Gastrointestinal: soft, non-tender, other (gt intact) Musculoskeletal: muscle weakness, range of motion ( ) Extremities: normal pulses Neurological: confused Skin: other (decund) Results Results 24hrs Laboratory Tests Test 07/28/18 05:00 07/28/18 06:04 Stool Occult Blood NEGATIVE White Blood Count 3.5 #L Red Blood Count 3.49 L Hemoglobin 9.4 L Hematocrit 33.8 L Mean Corpuscular Volume 96.8 Mean Corpuscular Hemoglobin 26.9 L Mean Corpuscular Hemoglobin Concent 27.8 L Red Cell Distribution Width 18.5 H Platelet Count 160 # Mean Platelet Volume 13.2 H Immature Granulocytes % 0.300 Neutrophils % 66.6 Lymphocytes % 12.4 L Monocytes % 15.3 H Eosinophils % 5.1 Basophils % 0.3 Nucleated Red Blood Cells % 0.0 Immature Granulocytes # 0.010 Neutrophils # 2.4 Lymphocytes # 0.4 L Monocytes # 0.5 Eosinophils # 0.2 Basophils # 0.0 Nucleated Red Blood Cells # 0.0 Sodium Level 146 H Potassium Level 5.1 Chloride Level 116 H Carbon Dioxide Level 22 Anion Gap 11 Blood Urea Nitrogen 53 H Creatinine 1.49 H Est Glomerular Filtrat Rate mL/min 52 L Glucose Level 99 Calcium Level 8.9 Medications Medication Current Medications Bisacodyl (Dulcolax Supp) 10 mg DAILY DC Last administered on 07/27/18 09:25; Admin Dose 10 MG; Start 07/19/18 at 09:00 Multivitamins Therapeutic (Theragran) 1 tab DAILY GTB Last administered on 07/28/18 09:49; Admin Dose 1 TAB; Start 07/19/18 at 09:00 Quetiapine Fumarate (Seroquel) 50 mg BID GTB Last administered on 07/28/18 09:47; Admin Dose 50 MG; Start 07/18/18 at 21:00 Zinc Sulfate (Zinc Sulfate) 220 mg DAILY GTB Last administered on 07/28/18 09:48; Admin Dose 220 MG; Start 07/19/18 at 09:00 IV Flush (NS 3 ml) 3 ml PER PROTOCOL IV ; Start 07/18/18 at 18:30 Ondansetron HCl (Zofran Inj) 4 mg Q6H PRN IV NAUSEA AND/OR VOMITING Last administered on 07/23/18 21:38; Admin Dose 4 MG; Start 07/18/18 at 18:30 Albuterol (Proventil 0.083% (Neb)) 2.5 mg Q2H RESP THERAPY PRN NEB SHORTNESS OF BREATH Last administered on 07/20/18 23:05; Admin Dose 2.5 MG; Start 07/18/18 at 18:30 Ipratropium [place] (Atrovent 0.02% (Neb)) 0.5 mg Q2H RESP THERAPY PRN NEB SHORTNESS OF BREATH Last administered on 07/20/18 03:25; Admin Dose 0.5 MG; Start 07/18/18 at 18:30 Hydromorphone HCl (Dilaudid) 0.5 mg Q4H PRN IV PAIN LEVEL 7-10 Last administered on 07/28/18 12:10; Admin Dose 0.5 MG; Start 07/18/18 at 18:30 Acetaminophen (Tylenol Liquid) 650 mg Q6H PRN GTB PAIN LEVEL 1-3 OR FEVER Last administered on 07/24/18 12:05; Admin Dose 650 MG; Start 07/19/18 at 10:30 Acetaminophen/ Hydrocodone Bitart ([place] (5/325)) 1 tab Q6H PRN GTB PAIN LEVEL 4-6 Last administered on 07/28/18 09:48; Admin Dose 1 TAB; Start 07/19/18 at 12:30 Docusate Sodium (Colace Liquid Cup) 100 mg Q12 PRN GTB CONSTIPATION Last administered on 07/27/18 09:25; Admin Dose 100 MG; Start 07/19/18 at 08:00 Docusate Sodium (Colace Liquid Cup) 100 mg QHS GTB Last administered on 07/27/18 21:41; Admin Dose 100 MG; Start 07/19/18 at 21:00 IV Flush (NS 10 ml) 10 ml PRN PRN IV FLUSH LINE; Start 07/19/18 at 18:30 Levetiracetam (Keppra Liquid) 500 mg Q12 GTB Last administered on 07/28/18 09:48; Admin Dose 500 MG; Start 07/20/18 at 21:00 Gentamicin Sulfate (Gentamicin Iv Per Pharmacy) GENTAMICIN PER PHARMACY NOTE XX ; Start 07/20/18 at 14:00 Mupirocin (Bactroban) 1 applic BID TOP Last administered on 07/28/18 09:51; Admin Dose 1 APPLIC; Start 07/21/18 at 21:00 Metronidazole (Flagyl) 500 mg Q8 PO Last administered on 07/28/18 06:48; Admin Dose 500 MG; Start 07/21/18 at 14:00 Sodium Hypochlorite (Dakins Diluted ()) 1 applic BID TP Last administered on 07/28/18 09:49; Admin Dose 1 APPLIC; Start 07/22/18 at 09:00 Collagenase (Santyl) 1 applic BID TOP Last administered on 07/28/18 09:51; Admin Dose 1 APPLIC; Start 07/22/18 at 09:00 Famotidine (Pepcid Iv) 20 mg BID IV Last administered on 07/28/18 09:49; Admin Dose 20 MG; Start 07/23/18 at 21:00 Epoetin Prince-epbx (Retacrit (Non-Esrd)) 10,000 unit MoWeFr@1700 SC Last administered on 07/27/18at 17:57; Admin Dose 10,000 UNIT; Start 07/23/18 at 18:30 Norepinephrine 250 ml @ 1.875 mls/ hr TITRATE IV ; Start 07/23/18 at 17:30 Metoclopramide HCl (Reglan) 5 mg TID IV Last administered on 07/28/18at 12:10; Admin Dose 5 MG; Start 07/24/18 at 09:00 Gentamicin Sulfate 100 ml @ 200 mls/hr Q72H IVPB ; Start 07/29/18 at 17:00 NAE VELAZCO Jul 28, 2018 14:18
--- NOTE | 2018-07-28 15:03 | CONS ---
Assessment/Plan Assessment/Plan Assessment/Plan (Daily) 1. Acute Renal failure with severe Uremia, BUN trended down to 114 today 2. Septic shock on Levophed due to PNA and UTI 3. PNA concerned about HCAP 4. UTI 5. 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 ventilator dependent respiratory failure with tracheostomy 7. dysphagia with G-tube 8. chronic kidney disease III 9. history of right nephrectomy 10. left renal nephrolithiasis 11. bipolar disorder 12. Severe Anemia possibly due to Combination of Anemia of CKD + acute blood loss anemia s/p PRBC transfusion during this admission Plan: IV abx for Septic shock, Renally dose all abx and monitor electrolytes Change IVF to D5 W at 80 cc/hr x 2 liter then stop SP IV albumin 25% 100ml Q 8 hr x 3 doses We will continue to follow up Consultation Date/Type/Reason Admit Date/Time Jul 18, 2018 at 13:59 Initial Consult Date 07/18/18 Type of Consult NEPHROLOGY Requesting Provider: JOSÉ ANTONIO MIRZA MD Date/Time of Note DATE: 07/28/18 TIME: 15:03 Exam/Review of Systems Exam Vitals Vital Signs Date Temp Pulse Resp B/P (MAP) Pulse Ox O2 O2 Flow FiO2 Time Delivery Rate 07/28/18 98.1 102 23 157/97 99 12:03 (117) 07/28/18 40 04:50 07/27/18 Mechanical 17:07 Ventilator Intake and Output 07/27/18 07/27/18 07/28/18 1515:00 23:00 07:00 IntakeIntake Total 930 ml 780 ml OutputOutput Total 1100 ml 2900 ml BalanceBalance -170 ml -2120 ml Results Result Diagram: 07/28/18 0604 07/28/18 0604 Results 24hrs Laboratory Tests Test 07/28/18 05:00 07/28/18 06:04 Stool Occult Blood NEGATIVE White Blood Count 3.5 #L Red Blood Count 3.49 L Hemoglobin 9.4 L Hematocrit 33.8 L Mean Corpuscular Volume 96.8 Mean Corpuscular Hemoglobin 26.9 L Mean Corpuscular Hemoglobin Concent 27.8 L Red Cell Distribution Width 18.5 H Platelet Count 160 # Mean Platelet Volume 13.2 H Immature Granulocytes % 0.300 Neutrophils % 66.6 Lymphocytes % 12.4 L Monocytes % 15.3 H Eosinophils % 5.1 Basophils % 0.3 Nucleated Red Blood Cells % 0.0 Immature Granulocytes # 0.010 Neutrophils # 2.4 Lymphocytes # 0.4 L Monocytes # 0.5 Eosinophils # 0.2 Basophils # 0.0 Nucleated Red Blood Cells # 0.0 Sodium Level 146 H Potassium Level 5.1 Chloride Level 116 H Carbon Dioxide Level 22 Anion Gap 11 Blood Urea Nitrogen 53 H Creatinine 1.49 H Est Glomerular Filtrat Rate mL/min 52 L Glucose Level 99 Calcium Level 8.9 Medications Medication Current Medications Bisacodyl (Dulcolax Supp) 10 mg DAILY [place] Last administered on 07/27/18 09:25; Admin Dose 10 MG; Start 07/19/18 at 09:00 Multivitamins Therapeutic (Theragran) 1 tab DAILY GTB Last administered on 07/28/18 09:49; Admin Dose 1 TAB; Start 07/19/18 at 09:00 Quetiapine Fumarate (Seroquel) 50 mg BID GTB Last administered on 07/28/18 09:47; Admin Dose 50 MG; Start 07/18/18 at 21:00 Zinc Sulfate (Zinc Sulfate) 220 mg DAILY GTB Last administered on 07/28/18 09:48; Admin Dose 220 MG; Start 07/19/18 at 09:00 IV Flush (NS 3 ml) 3 ml PER PROTOCOL IV ; Start 07/18/18 at 18:30 Ondansetron HCl (Zofran Inj) 4 mg Q6H PRN IV NAUSEA AND/OR VOMITING Last administered on 07/23/18 21:38; Admin Dose 4 MG; Start 07/18/18 at 18:30 Albuterol (Proventil 0.083% (Neb)) 2.5 mg Q2H RESP THERAPY PRN NEB SHORTNESS OF BREATH Last administered on 07/20/18 23:05; Admin Dose 2.5 MG; Start 07/18/18 at 18:30 Ipratropium [place] (Atrovent 0.02% (Neb)) 0.5 mg Q2H RESP THERAPY PRN NEB SHORTNESS OF BREATH Last administered on 07/20/18 03:25; Admin Dose 0.5 MG; Start 07/18/18 at 18:30 Hydromorphone HCl (Dilaudid) 0.5 mg Q4H PRN IV PAIN LEVEL 7-10 Last admini stered on 07/28/18 12:10; Admin Dose 0.5 MG; Start 07/18/18 at 18:30 Acetaminophen (Tylenol Liquid) 650 mg Q6H PRN GTB PAIN LEVEL 1-3 OR FEVER Last administered on 07/24/18 12:05; Admin Dose 650 MG; Start 07/19/18 at 10:30 Acetaminophen/ Hydrocodone Bitart ([place] (5/325)) 1 tab Q6H PRN GTB PAIN LEVEL 4-6 Last administered on 07/28/18 09:48; Admin Dose 1 TAB; Start 07/19/18 at 12:30 Docusate Sodium (Colace Liquid Cup) 100 mg Q12 PRN GTB CONSTIPATION Last administered on 07/27/18 09:25; Admin Dose 100 MG; Start 07/19/18 at 08:00 Docusate Sodium (Colace Liquid Cup) 100 mg QHS GTB Last administered on 07/27/18 21:41; Admin Dose 100 MG; Start 07/19/18 at 21:00 IV Flush (NS 10 ml) 10 ml PRN PRN IV FLUSH LINE; Start 07/19/18 at 18:30 Levetiracetam (Keppra Liquid) 500 mg Q12 GTB Last administered on 07/28/18 09:48; Admin Dose 500 MG; Start 07/20/18 at 21:00 Gentamicin Sulfate (Gentamicin Iv Per Pharmacy) GENTAMICIN PER PHARMACY NOTE XX ; Start 07/20/18 at 14:00 Mupirocin (Bactroban) 1 applic BID TOP Last administered on 07/28/18 09:51; Admin Dose 1 APPLIC; Start 07/21/18 at 21:00 Metronidazole (Flagyl) 500 mg Q8 PO Last administered on 07/28/18 06:48; Admin Dose 500 MG; Start 07/21/18 at 14:00 Sodium Hypochlorite (Dakins Diluted ()) 1 applic BID TP Last administered on 07/28/18 09:49; Admin Dose 1 APPLIC; Start 07/22/18 at 09:00 Collagenase (Santyl) 1 applic BID TOP Last administered on 07/28/18 09:51; Admin Dose 1 APPLIC; Start 07/22/18 at 09:00 Famotidine (Pepcid Iv) 20 mg BID IV Last administered on 07/28/18at 09:49; Admin Dose 20 MG; Start 07/23/18 at 21:00 Epoetin Prince-epbx (Retacrit (Non-Esrd)) 10,000 unit MoWeFr@1700 [place] Last administered on 07/27/18at 17:57; Admin Dose 10,000 UNIT; Start 07/23/18 at 18:30 Norepinephrine 250 ml @ 1.875 mls/ hr TITRATE IV ; Start 07/23/18 at 17:30 Metoclopramide HCl (Reglan) 5 mg TID IV Last administered on 07/28/18at 12:10; Admin Dose 5 MG; Start 07/24/18 at 09:00 Gentamicin Sulfate 100 ml @ 200 mls/hr Q72H IVPB ; Start 07/29/18 at 17:00 TIARA CISNEROS MD Jul 28, 2018 15:03
[2018-07-28] MEDS: IPRATROPIUM (NEB) 0.5 MG/2.5 ML AMP NEB PRN (17:38)
[2018-07-28] MEDS: ALBUTEROL 0.083% (NEB) 2.5 MG/3 ML AMP NEB PRN (17:38)
[2018-07-28] MEDS: DOCUSATE SODIUM 10 MG/ML (10ML CUP) GTB SCH (22:53)
--- NOTE | 2018-07-28 23:50 | PN ---
DATE: 07/28/2018 PULMONARY FOLLOWUP NOTE SUBJECTIVE: The patient's general condition remains the same. He is on ventilator support for long- term through tracheostomy. OBJECTIVE: VITAL SIGNS: Stable. Temperature 99.1, blood pressure 167/105, pulse rate 132, respirations 35, pul se oximetry 100% saturation. Probably the patient was agitated before the vital signs were taken ___ _ showing increasing heart rate, increasing respiratory rate, and increasing blood pressure also. NECK: Tracheostomy secretions are moderate. No gross bleeding seen. HEART: Regular rhythm with sinus tachycardia. CHEST: Breath sounds are heard diminished in both lower lung tierney with a few intermittent rales an d rhonchi. ABDOMEN: Soft, no distention seen, tolerating tube feedings. Bowel sounds are present. EXTREMITIES: Show paraplegia, no edema. LABORATORY DATA: Show sodium 146, potassium 5.1, bicarbonate of 22, BUN 53, creatinine 1.49. BUN an d creatinine are progressively improved. CBC shows a WBC of 3500, hemoglobin 9.4, hematocrit 33.6, p latelets are improving to 160,000, is now within normal limits. The chest x-ray shows bibasilar infiltrates which seems to be chronic, seen in previous chest x-ray f ilms. IMPRESSION: 1. Resolving sepsis. 2. Probable pneumonia with chronic chest x-ray findings. 3. Chronic ventilator dependent respiratory failure. 4. Chronic kidney disease with acute kidney injury, improving. 5. Chronic anemia. 6. History of nephrolithiasis. 7. 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 8. History of bipolar disorder. RECOMMENDATIONS: 1. Continue long-term ventilator support. 2. Continue antibiotics as per infectious disease service loss control consultant. 3. Continue bronchodilator inhalation therapy to mobilize secretions and improve the bronchial hygie ne. 4. Continue hydration. 5. Continue supportive therapy. Dictated By: HUMBERTO PEREZ MD SR/NTS Conf#: [id number] DID#: [id number]
[2018-07-29] VITALS (24 sets, daily range): BP systolic 127–173; BP diastolic 71–110; PULSE 78–127; RESP 15–35
[2018-07-29] MEDS: HYDROmorphONE 0.5 MG/0.5 ML SYG IV PRN ×6 (00:11→20:16)
[2018-07-29] MEDS: HYDROCODONE/APAP (5/325) TAB GTB PRN ×2 (02:26→10:30)
[2018-07-29] MEDS: metroNIDAZOLE 500 MG TAB PO SCH ×3 (06:17→22:07)
--- NOTE | 2018-07-29 07:30 | PN ---
Date/Time of Note Date/Time of Note DATE: 07/29/18 TIME: 07:27 Assessment/Plan VTE Prophylaxis Risk score (from [facility])>0 risk: 7 SCD applied (from [facility]): No SCD contraindicated: other Pharmacological prophylaxis: other Pharm contraindication: other Lines/Catheters IV Catheter Type (from [facility]): PICC Line Central line still needed: Yes Assessment/Plan Assessment/Plan - acute hypernatremia - per nephro - will do GT flush 100 cc q6hr - Anemia multifactorial, chronic disease and blood loss. S/p blood transfusion, continue Epogen. - Possible GI bleed. Dr. Borjas is following in gastroenterology consultation. - Ileus versus small bowel obstruction. - Sepsis with shock injury to possible healthcare acquired pneumonia and UTI, continue abx per ID. Dr. Maciel is following in infection disease consultation. - Acute on chronic renal failure. Continue to monitor BUN and creatinine. Dr. Barker is following in nephrology consultation. - Ventilator dependent respiratory failure, continue pulmonary toilet and bronchodilators. Dr Ames is following in pulmonology consultation. - Neurogenic bladder with suprapubic catheter. - Dysphagia with gastrostomy tube. - Multiple decubitus ulcers present on admission. - Cervical spine injury with paraplegia. - Bipolar disorder with psychosis. - Hx of right nephrectomy - Hx of left renal nephrolithiasis, hx of lithotripsy with insertion and subsequent removal of ureteral JJ stent. Further recommendations based on clinical course. Plan of care discussed with Dr. Barreto. Result Diagram: 07/29/18 0611 07/29/18 0611 Results 24hrs Laboratory Tests Test 07/29/18 06:11 White Blood Count 3.5 L Red Blood Count 3.26 L Hemoglobin 8.8 L Hematocrit 31.7 L Mean Corpuscular Volume 97.2 Mean Corpuscular Hemoglobin 27.0 L Mean Corpuscular Hemoglobin Concent 27.8 L Red Cell Distribution Width 18.6 H Platelet Count 157 Mean Platelet Volume 12.7 H Immature Granulocytes % 0.300 Neutrophils % 69.2 Lymphocytes % 12.2 L Monocytes % 15.4 H Eosinophils % 2.3 Basophils % 0.6 Nucleated Red Blood Cells % 0.0 Immature Granulocytes # 0.010 Neutrophils # 2.4 Lymphocytes # 0.4 L Monocytes # 0.5 Eosinophils # 0.1 Basophils # 0.0 Nucleated Red Blood Cells # 0.0 Sodium Level 151 H Potassium Level Pending Chloride Level 120 H Carbon Dioxide Level 24 Anion Gap 7 Blood Urea Nitrogen 49 H Creatinine 1.38 H Est Glomerular Filtrat Rate mL/min 57 L Glucose Level 111 Calcium Level 8.9 Subjective 24 Hr Interval Summary Free Text/Dictation - nad - afebrile - acute hypernatremia- will do GT flush 100 cc q6hr - no events overnight dw staff Constitutional: requiring O2 Respiratory: no complaints Cardiovascular: no complaints Gastrointestinal: no complaints Musculoskeletal: No restricted range of motion Exam/Review of Systems Exam Vitals Vital Signs Date Temp Pulse Resp B/P (MAP) Pulse Ox O2 O2 Flow FiO2 Time Delivery Rate 07/29/18 88 04:46 07/29/18 26 100 40 04:45 07/29/18 97.5 161/110 03:43 (127) 07/27/18 Mechanical 17:07 Ventilator Intake and Output 07/28/18 07/28/18 07/29/18 1414:59 22:59 06:59 IntakeIntake Total 610 ml OutputOutput Total 1100 ml 1800 ml BalanceBalance -1100 ml -1190 ml Constitutional: alert, non-verbal, frail Psych: nl mood/affect Eyes: nl lids, nl sclera ENMT: nl external ears & nose Neck: non-tender, other (trach intact) Respiratory: clear to auscultation Cardiovascular: nl pulses, other (s1s2) Gastrointestinal: soft, other (gt intact) Musculoskeletal: muscle weakness, range of motion Neurological: confused Skin: other (decubs) Results Results 24hrs Laboratory Tests Test 07/29/18 06:11 White Blood Count 3.5 L Red Blood Count 3.26 L Hemoglobin 8.8 L Hematocrit 31.7 L Mean Corpuscular Volume 97.2 Mean Corpuscular Hemoglobin 27.0 L Mean Corpuscular Hemoglobin Concent 27.8 L Red Cell Distribution Width 18.6 H Platelet Count 157 Mean Platelet Volume 12.7 H Immature Granulocytes % 0.300 Neutrophils % 69.2 Lymphocytes % 12.2 L Monocytes % 15.4 H Eosinophils % 2.3 Basophils % 0.6 Nucleated Red Blood Cells % 0.0 Immature Granulocytes # 0.010 Neutrophils # 2.4 Lymphocytes # 0.4 L Monocytes # 0.5 Eosinophils # 0.1 Basophils # 0.0 Nucleated Red Blood Cells # 0.0 Sodium Level 151 H Potassium Level Pending Chloride Level 120 H Carbon Dioxide Level 24 Anion Gap 7 Blood Urea Nitrogen 49 H Creatinine 1.38 H Est Glomerular Filtrat Rate mL/min 57 L Glucose Level 111 Calcium Level 8.9 Medications Medication Current Medications Bisacodyl (Dulcolax Supp) 10 mg DAILY [place] Last administered on 07/27/18 09:25; Admin Dose 10 MG; Start 07/19/18 at 09:00 Multivitamins Therapeutic (Theragran) 1 tab DAILY GTB Last administered on 07/28/18 09:49; Admin Dose 1 TAB; Start 07/19/18 at 09:00 Quetiapine Fumarate (Seroquel) 50 mg BID GTB Last administered on 07/28/18 22:53; Admin Dose 50 MG; Start 07/18/18 at 21:00 Zinc Sulfate (Zinc Sulfate) 220 mg DAILY GTB Last administered on 07/28/18 09:48; Admin Dose 220 MG; Start 07/19/18 at 09:00 IV Flush (NS 3 ml) 3 ml PER PROTOCOL IV ; Start 07/18/18 at 18:30 Ondansetron HCl (Zofran Inj) 4 mg Q6H PRN IV NAUSEA AND/OR VOMITING Last administered on 07/23/18 21:38; Admin Dose 4 MG; Start 07/18/18 at 18:30 Albuterol (Proventil 0.083% (Neb)) 2.5 mg Q2H RESP THERAPY PRN NEB SHORTNESS OF BREATH Last administered on 07/28/18 17:38; Admin Dose 2.5 MG; Start 07/18/18 at 18:30 Ipratropium [place] (Atrovent 0.02% (Neb)) 0.5 mg Q2H RESP THERAPY PRN NEB SHORTNESS OF BREATH Last administered on 07/28/18 17:38; Admin Dose 0.5 MG; Start 07/18/18 at 18:30 Hydromorphone HCl (Dilaudid) 0.5 mg Q4H PRN IV PAIN LEVEL 7-10 Last administered on 07/29/18 04:07; Admin Dose 0.5 MG; Start 07/18/18 at 18:30 Acetaminophen (Tylenol Liquid) 650 mg Q6H PRN GTB PAIN LEVEL 1-3 OR FEVER Last administered on 07/24/18 12:05; Admin Dose 650 MG; Start 07/19/18 at 10:30 Acetaminophen/ Hydrocodone Bitart ([place] (5/325)) 1 tab Q6H PRN GTB PAIN LEVEL 4-6 Last administered on 07/29/18 02:26; Admin Dose 1 TAB; Start 07/19/18 at 12:30 Docusate Sodium (Colace Liquid Cup) 100 mg Q12 PRN GTB CONSTIPATION Last admi nistered on 07/27/18 09:25; Admin Dose 100 MG; Start 07/19/18 at 08:00 Docusate Sodium (Colace Liquid Cup) 100 mg QHS GTB Last administered on 07/28/18 22:53; Admin Dose 100 MG; Start 07/19/18 at 21:00 IV Flush (NS 10 ml) 10 ml PRN PRN IV FLUSH LINE; Start 07/19/18 at 18:30 Levetiracetam (Keppra Liquid) 500 mg Q12 GTB Last administered on 07/28/18 22:53; Admin Dose 500 MG; Start 07/20/18 at 21:00 Gentamicin Sulfate (Gentamicin Iv Per Pharmacy) GENTAMICIN PER PHARMACY NOTE XX ; Start 07/20/18 at 14:00 Mupirocin (Bactroban) 1 applic BID TOP Last administered on 07/28/18 22:54; Admin Dose 1 APPLIC; Start 07/21/18 at 21:00 Metronidazole (Flagyl) 500 mg Q8 PO Last administered on 07/29/18 06:17; Admin Dose 500 MG; Start 07/21/18 at 14:00 Sodium Hypochlorite (Dakins Diluted (40)) 1 applic BID TP Last administered on 07/28/18 22:55; Admin Dose 1 APPLIC; Start 07/22/18 at 09:00 Collagenase (Santyl) 1 applic BID TOP Last administered on 07/28/18 22:55; Admin Dose 1 APPLIC; Start 07/22/18 at 09:00 Famotidine (Pepcid Iv) 20 mg BID IV Last administered on 07/28/18 22:54; Admin Dose 20 MG; Start 07/23/18 at 21:00 Epoetin [place]-epbx (Retacrit (Non-Esrd)) 10,000 unit MoWeFr@1700 [place] Last administered on 07/27/18at 17:57; Admin Dose 10,000 UNIT; Start 07/23/18 at 18:30 Norepinephrine 250 ml @ 1.875 mls/ hr TITRATE IV ; Start 07/23/18 at 17:30 Metoclopramide HCl (Reglan) 5 mg TID IV Last administered on 07/28/18at 22:53; Admin Dose 5 MG; Start 07/24/18 at 09:00 Gentamicin Sulfate 100 ml @ 200 mls/hr Q72H IVPB ; Start 07/29/18 at 17:00 NAE VELAZCO Jul 29, 2018 07:30
[2018-07-29] MEDS: LEVETIRACETAM (100 MG/ML) 5ML CUP GTB SCH ×2 (08:35→20:16)
[2018-07-29] MEDS: DAKINS 0.0125%(1/40) 473 ML SOLUTION TP SCH ×2 (08:35→20:31)
[2018-07-29] MEDS: COLLAGENASE 5 GM (UD JAR) TOP SCH ×2 (08:35→20:17)
[2018-07-29] MEDS: MUPIROCIN 2% 22 GM OINT TOP SCH ×2 (08:35→20:31)
[2018-07-29] MEDS: BALSAM PERU/CASTOR OIL 60 GM TUBE TOP SCH ×2 (08:35→20:31)
[2018-07-29] MEDS: ZINC SULFATE 220 MG CAP GTB SCH (08:35)
[2018-07-29] MEDS: MULTIVITAMINS THERAPEUTIC TAB GTB SCH (08:35)
[2018-07-29] MEDS: QUETIAPINE 25 MG TAB GTB SCH ×2 (08:36→20:17)
[2018-07-29] MEDS: METOCLOPRAMIDE 10 MG INJ IV SCH ×3 (08:44→20:25)
[2018-07-29] MEDS: FAMOTIDINE 20 MG INJ IV SCH ×2 (08:44→20:25)
[2018-07-29] MEDS: BISACODYL 10 MG SUPP PR SCH (08:45)
--- NOTE | 2018-07-29 12:27 | PN ---
DATE: 07/29/2018 SUBJECTIVE: The patient is in medical floor. He is on continuous long-term ventilator support throu gh tracheostomy. He shows no signs of respiratory distress. He does not have any fever spikes. PHYSICAL EXAMINATION: VITAL SIGNS: This morning, his temperature is 97.5, blood pressure 139/96, pulse rate is 106, respir ations 20, pulse oximetry is 94% saturation. NECK: Tracheal secretions are clear. No gross bleeding or purulence seen. HEART: Regular rhythm with periods of sinus bradycardia. CHEST: Breath sounds are heard bilaterally, but diminished in both the lower lung tierney with a few intermittent rales and rhonchi. ABDOMEN: Soft. No distention seen. He is tolerating G-tube feedings. Bowel sounds are present. EXTREMITIES: Show no edema. He is paraplegic. LABORATORY TESTS: Show sodium 151, potassium 4.5, BUN 49, creatinine 1.38, glucose 111. CBC shows W BC 3500, hemoglobin 8.8, hematocrit 31.7, platelets 157,000 which is within normal limits. IMPRESSION: 1. Resolving sepsis. 2. Probable pneumonia with chronic chest x-ray findings. 3. Chronic ventilator dependent respiratory failure. 4. Chronic kidney disease with acute kidney injury, improving. 5. Chronic anemia. 6. History of nephrolithiasis. 7. 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 8. History of bipolar disorder. PLAN: 1. Continue long-term ventilator support. 2. Continue antibiotics as per the infectious disease small business consultant. 3. Continue bronchodilator inhalation therapy to clear the secretions and improve bronchial hygiene. 4. Continue hydration. 5. Continue supportive therapy. Dictated By: HUMBERTO PEREZ MD SR/NTS Conf#: [id number] DID#: [id number] CC: JOSÉ ANTONIO MIRZA MD;*EndCC*
[2018-07-29] MEDS: ALBUTEROL 0.083% (NEB) 2.5 MG/3 ML AMP NEB PRN ×2 (13:03→23:00)
[2018-07-29] MEDS: IPRATROPIUM (NEB) 0.5 MG/2.5 ML AMP NEB PRN ×2 (13:03→23:00)
--- NOTE | 2018-07-29 15:10 | CONS ---
Assessment/Plan Assessment/Plan Assessment/Plan (Daily) Assessment/Plan (Daily) pital Course (Demo Recall) 42 year old paraplegic male presents from SNF for sepsis secondary to pnuemonia and UTI was found to ileus vs SBO on KUB with one episode of coffee ground vomit. 1. Ileus vs SBO clinically resolved the patient is tolerating feeding 2. Anemia, acute on chronic recent is status post 1 unit of packed cell RBC transfusion 3. Acute on chronic renal failure -h/o rt nephrectomy 4. Sepsis secondary to pnuemonia and UTI 5. Pneumonia 6. UTI -Acinetobacter Baumannii 7. 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 Vent dependent respiratory failure 9. Dysphagia, s/p g tube 10. Bipolar disorder 11. Anemia stable, stool for occult blood reported negative 12. Renal insufficiency kidney function improving Plan Continue Pepcid Continue Reglan Increase feeding to 30 cc/h Magnesium Site-Rite through the G-tube for impacted stool in the rectum KUB in a.m. Consultation Date/Type/Reason Admit Date/Time Jul 18, 2018 at 13:59 Initial Consult Date 07/18/18 Requesting Provider: JOSÉ ANTONIO MIRZA MD Date/Time of Note DATE: 07/29/18 TIME: 15:10 24 HR Interval Summary Constitutional: no complaints Exam/Review of Systems Exam Vitals Vital Signs Date Temp Pulse Resp B/P (MAP) Pulse Ox O2 O2 Flow FiO2 Time Delivery Rate 07/29/18 95 26 100 40 13:03 07/29/18 98.0 151/83 12:20 (105) 07/27/18 Mechanical 17:07 Ventilator Intake and Output 07/28/18 07/28/18 07/29/18 1515:00 23:00 07:00 IntakeIntake Total 610 ml OutputOutput Total 1100 ml 1800 ml BalanceBalance -1100 ml -1190 ml ENMT: intubated Cardiovascular: regular rate and rhythm Gastrointestinal: soft, nl liver, spleen, non-tender Musculoskeletal: nl extremities to inspection, nl gait and stance Results Result Diagram: 07/29/18 0611 07/29/18 0611 Results 24hrs Laboratory Tests Test 07/29/18 06:11 White Blood Count 3.5 L Red Blood Count 3.26 L Hemoglobin 8.8 L Hematocrit 31.7 L Mean Corpuscular Volume 97.2 Mean Corpuscular Hemoglobin 27.0 L Mean Corpuscular Hemoglobin Concent 27.8 L Red Cell Distribution Width 18.6 H Platelet Count 157 Mean Platelet Volume 12.7 H Immature Granulocytes % 0.300 Neutrophils % 69.2 Lymphocytes % 12.2 L Monocytes % 15.4 H Eosinophils % 2.3 Basophils % 0.6 Nucleated Red Blood Cells % 0.0 Immature Granulocytes # 0.010 Neutrophils # 2.4 Lymphocytes # 0.4 L Monocytes # 0.5 Eosinophils # 0.1 Basophils # 0.0 Nucleated Red Blood Cells # 0.0 Sodium Level 151 H Potassium Level 4.5 Chloride Level 120 H Carbon Dioxide Level 24 Anion Gap 7 Blood Urea Nitrogen 49 H Creatinine 1.38 H Est Glomerular Filtrat Rate mL/min 57 L Glucose Level 111 Calcium Level 8.9 Medications Medication Current Medications Bisacodyl (Dulcolax Supp) 10 mg DAILY [place] Last administered on 07/27/18 09:25; Admin Dose 10 MG; Start 07/19/18 at 09:00 Multivitamins Therapeutic (Theragran) 1 tab DAILY GTB Last administered on 07/29/18 08:35; Admin Dose 1 TAB; Start 07/19/18 at 09:00 Zinc Sulfate (Zinc Sulfate) 220 mg DAILY GTB Last administered on 07/29/18 08:35; Admin Dose 220 MG; Start 07/19/18 at 09:00 IV Flush (NS 3 ml) 3 ml PER PROTOCOL IV ; Start 07/18/18 at 18:30 Ondansetron HCl (Zofran Inj) 4 mg Q6H PRN IV NAUSEA AND/OR VOMITING Last administered on 07/23/18 21:38; Admin Dose 4 MG; Start 07/18/18 at 18:30 Albuterol (Proventil 0.083% (Neb)) 2.5 mg Q2H RESP THERAPY PRN NEB SHORTNESS OF BREATH Last administered on 07/29/18 13:03; Admin Dose 2.5 MG; Start 07/18/18 at 18:30 Ipratropium [place] (Atrovent 0.02% (Neb)) 0.5 mg Q2H RESP THERAPY PRN NEB SHORTNESS OF BREATH Last administered on 07/29/18 13:03; Admin Dose 0.5 MG; Start 07/18/18 at 18:30 Hydromorphone HCl (Dilaudid) 0.5 mg Q4H PRN IV PAIN LEVEL 7-10 Last administered on 07/29/18 12:07; Admin Dose 0.5 MG; Start 07/18/18 at 18:30 Acetaminophen (Tylenol Liquid) 650 mg Q6H PRN GTB PAIN LEVEL 1-3 OR FEVER Last administered on 07/24/18 12:05; Admin Dose 650 MG; Start 07/19/18 at 10:30 Acetaminophen/ Hydrocodone Bitart ([place] (5/325)) 1 tab Q6H PRN GTB PAIN LEVEL 4-6 Last administered on 07/29/18 10:30; Admin Dose 1 TAB; Start 07/19/18 at 12:30 Docusate Sodium (Colace Liquid Cup) 100 mg Q12 PRN GTB CONSTIPATION Last administered on 07/27/18 09:25; Admin Dose 100 MG; Start 07/19/18 at 08:00 Docusate Sodium (Colace Liquid Cup) 100 mg QHS GTB Last administered on 07/28/18 22:53; Admin Dose 100 MG; Start 07/19/18 at 21:00 IV Flush (NS 10 ml) 10 ml PRN PRN IV FLUSH LINE; Start 07/19/18 at 18:30 Levetiracetam (Keppra Liquid) 500 mg Q12 GTB Last administered on 07/29/18 08:35; Admin Dose 500 MG; Start 07/20/18 at 21:00 Gentamicin Sulfate (Gentamicin Iv Per Pharmacy) GENTAMICIN PER PHARMACY NOTE XX ; Start 07/20/18 at 14:00 Mupirocin (Bactroban) 1 applic BID TOP Last administered on 07/29/18 08:35; Admin Dose 1 APPLIC; Start 07/21/18 at 21:00 Metronidazole (Flagyl) 500 mg Q8 PO Last administered on 07/29/18 13:46; Admin Dose 500 MG; Start 07/21/18 at 14:00 Sodium Hypochlorite (Dakins Diluted ()) 1 applic BID TP Last administered on 07/29/18 08:35; Admin Dose 1 APPLIC; Start 07/22/18 at 09:00 Collagenase (Santyl) 1 applic BID TOP Last administered on 07/29/18 08:35; Admin Dose 1 APPLIC; Start 07/22/18 at 09:00 Famotidine (Pepcid Iv) 20 mg BID IV Last administered on 07/29/18at 08:44; Admin Dose 20 MG; Start 07/23/18 at 21:00 Epoetin Prince-epbx (Retacrit (Non-Esrd)) 10,000 unit MoWeFr@1700 [place] Last administered on 07/27/18at 17:57; Admin Dose 10,000 UNIT; Start 07/23/18 at 18:30 Norepinephrine 250 ml @ 1.875 mls/ hr TITRATE IV ; Start 07/23/18 at 17:30 Metoclopramide HCl (Reglan) 5 mg TID IV Last administered on 07/29/18at 13:46; Admin Dose 5 MG; Start 07/24/18 at 09:00 Gentamicin Sulfate 100 ml @ 200 mls/hr Q72H IVPB ; Start 07/29/18 at 17:00 Quetiapine Fumarate (Seroquel) 75 mg BID GTB ; Start 07/29/18 at 21:00 OPAL STRATTON MD Jul 29, 2018 15:10
--- NOTE | 2018-07-29 15:59 | CONS ---
TIARA CISNEROS MD 07/29/18 1559: Assessment/Plan Assessment/Plan Assessment/Plan (Daily) 1. Acute Renal failure with severe Uremia, BUN trended down to 114 today 2. Septic shock on Levophed due to PNA and UTI 3. PNA concerned about HCAP 4. UTI 5. 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 ventilator dependent respiratory failure with tracheostomy 7. dysphagia with G-tube 8. chronic kidney disease III 9. history of right nephrectomy 10. left renal nephrolithiasis 11. bipolar disorder 12. Severe Anemia possibly due to Combination of Anemia of CKD + acute blood loss anemia s/p PRBC transfusion during this admission Plan: IV abx for Septic shock, Renally dose all abx and monitor electrolytes Change IVF to D5 W at 80 cc/hr x 2 liter then stop SP IV albumin 25% 100ml Q 8 hr x 3 doses We will continue to follow up Consultation Date/Type/Reason Admit Date/Time Jul 18, 2018 at 13:59 Initial Consult Date 07/18/18 Type of Consult NEPHROLOGY Requesting Provider: JOSÉ ANTONIO MIRZA MD Date/Time of Note DATE: 07/29/18 TIME: 15:58 Exam/Review of Systems Exam Vitals Vital Signs Date Temp Pulse Resp B/P (MAP) Pulse Ox O2 O2 Flow FiO2 Time Delivery Rate 07/29/18 95 26 100 40 13:03 07/29/18 98.0 151/83 12:20 (105) 07/27/18 Mechanical 17:07 Ventilator Intake and Output 07/28/18 07/28/18 07/29/18 1515:00 23:00 07:00 IntakeIntake Total 610 ml OutputOutput Total 1100 ml 1800 ml BalanceBalance -1100 ml -1190 ml Results Result Diagram: 07/29/18 0611 07/29/18 0611 Results 24hrs Laboratory Tests Test 07/29/18 06:11 White Blood Count 3.5 L Red Blood Count 3.26 L Hemoglobin 8.8 L Hematocrit 31.7 L Mean Corpuscular Volume 97.2 Mean Corpuscular Hemoglobin 27.0 L Mean Corpuscular Hemoglobin Concent 27.8 L Red Cell Distribution Width 18.6 H Platelet Count 157 Mean Platelet Volume 12.7 H Immature Granulocytes % 0.300 Neutrophils % 69.2 Lymphocytes % 12.2 L Monocytes % 15.4 H Eosinophils % 2.3 Basophils % 0.6 Nucleated Red Blood Cells % 0.0 Immature Granulocytes # 0.010 Neutrophils # 2.4 Lymphocytes # 0.4 L Monocytes # 0.5 Eosinophils # 0.1 Basophils # 0.0 Nucleated Red Blood Cells # 0.0 Sodium Level 151 H Potassium Level 4.5 Chloride Level 120 H Carbon Dioxide Level 24 Anion Gap 7 Blood Urea Nitrogen 49 H Creatinine 1.38 H Est Glomerular Filtrat Rate mL/min 57 L Glucose Level 111 Calcium Level 8.9 Medications Medication Current Medications Bisacodyl (Dulcolax Supp) 10 mg DAILY [place] Last administered on 07/27/18 09:25; Admin Dose 10 MG; Start 07/19/18 at 09:00 Multivitamins Therapeutic (Theragran) 1 tab DAILY GTB Last administered on 07/29/18 08:35; Admin Dose 1 TAB; Start 07/19/18 at 09:00 Zinc Sulfate (Zinc Sulfate) 220 mg DAILY GTB Last administered on 07/29/18 08:35; Admin Dose 220 MG; Start 07/19/18 at 09:00 IV Flush (NS 3 ml) 3 ml PER PROTOCOL IV ; Start 07/18/18 at 18:30 Ondansetron HCl (Zofran Inj) 4 mg Q6H PRN IV NAUSEA AND/OR VOMITING Last administered on 07/23/18 21:38; Admin Dose 4 MG; Start 07/18/18 at 18:30 Albuterol (Proventil 0.083% (Neb)) 2.5 mg Q2H RESP THERAPY PRN NEB SHORTNESS OF BREATH Last administered on 07/29/18 13:03; Admin Dose 2.5 MG; Start 07/18/18 at 18:30 Ipratropium [place] (Atrovent 0.02% (Neb)) 0.5 mg Q2H RESP THERAPY PRN NEB SHORTNESS OF BREATH Last administered on 07/29/18 13:03; Admin Dose 0.5 MG; Start 07/18/18 at 18:30 Hydromorphone HCl (Dilaudid) 0.5 mg Q4H PRN IV PAIN LEVEL 7-10 Last administered on 07/29/18 12:07; Admin Dose 0.5 MG; Start 07/18/18 at 18:30 Acetaminophen (Tylenol Liquid) 650 mg Q6H PRN GTB PAIN LEVEL 1-3 OR FEVER Last administered on 07/24/18 12:05; Admin Dose 650 MG; Start 07/19/18 at 10:30 Acetaminophen/ Hydrocodone Bitart ([place] (5/325)) 1 tab Q6H PRN GTB PAIN LEVEL 4-6 Last administered on 07/29/18 10:30; Admin Dose 1 TAB; Start 07/19/18 at 12:30 Docusate Sodium (Colace Liquid Cup) 100 mg Q12 PRN GTB CONSTIPATION Last admin istered on 07/27/18 09:25; Admin Dose 100 MG; Start 07/19/18 at 08:00 Docusate Sodium (Colace Liquid Cup) 100 mg QHS GTB Last administered on 07/28/18 22:53; Admin Dose 100 MG; Start 07/19/18 at 21:00 IV Flush (NS 10 ml) 10 ml PRN PRN IV FLUSH LINE; Start 07/19/18 at 18:30 Levetiracetam (Keppra Liquid) 500 mg Q12 GTB Last administered on 07/29/18 08:35; Admin Dose 500 MG; Start 07/20/18 at 21:00 Gentamicin Sulfate (Gentamicin Iv Per Pharmacy) GENTAMICIN PER PHARMACY NOTE XX ; Start 07/20/18 at 14:00 Mupirocin (Bactroban) 1 applic BID TOP Last administered on 07/29/18 08:35; Admin Dose 1 APPLIC; Start 07/21/18 at 21:00 Metronidazole (Flagyl) 500 mg Q8 PO Last administered on 07/29/18 13:46; Admin Dose 500 MG; Start 07/21/18 at 14:00 Sodium Hypochlorite (Dakins Diluted ()) 1 applic BID TP Last administered on 07/29/18 08:35; Admin Dose 1 APPLIC; Start 07/22/18 at 09:00 Collagenase (Santyl) 1 applic BID TOP Last administered on 07/29/18 08:35; Admin Dose 1 APPLIC; Start 07/22/18 at 09:00 Famotidine (Pepcid Iv) 20 mg BID IV Last administered on 07/29/18 08:44; Admin Dose 20 MG; Start 07/23/18 at 21:00 Epoetin Prince-epbx (Retacrit (Non-Esrd)) 10,000 unit MoWeFr@1700 SC Last administered on 07/27/18at 17:57; Admin Dose 10,000 UNIT; Start 07/23/18 at 18:30 Norepinephrine 250 ml @ 1.875 mls/ hr TITRATE IV ; Start 07/23/18 at 17:30 Metoclopramide HCl (Reglan) 5 mg TID IV Last administered on 07/29/18at 13:46; Admin Dose 5 MG; Start 07/24/18 at 09:00 Gentamicin Sulfate 100 ml @ 200 mls/hr Q72H IVPB ; Start 07/29/18 at 17:00 Quetiapine Fumarate (Seroquel) 75 mg BID GTB ; Start 07/29/18 at 21:00 NAE VELAZCO 07/30/18 1154: Assessment/Plan Assessment/Plan Assessment/Plan (Daily) - Anemia- Hgb today; sp 1 unit PRBC - Hypernatremia- 1. Acute Renal failure with severe Uremia, BUN trended down to 114 today 2. Septic shock on Levophed due to PNA and UTI 3. PNA concerned about HCAP 4. UTI 5. 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 ventilator dependent respiratory failure with tracheostomy 7. dysphagia with G-tube 8. chronic kidney disease III 9. history of right nephrectomy 10. left renal nephrolithiasis 11. bipolar disorder Plan: BP still labile IV abx for Septic shock, Renally dose all abx and monitor electrolytes continue IVF NS at 100 cc/hr SP IV albumin 25% 100ml Q 8 hr x 3 doses pt is currently severely dry, will continue IVF NS at 100 cc/ hr We will continue to follow up Critical care time spent is 30 minutes.Patient seen in collaboration with Dr Paul Cisneros. dw staff TIARA CISNEROS MD Jul 29, 2018 15:59 NAE VELAZCO Jul 30, 2018 11:54
[2018-07-29] MEDS ORDERED: GENTAMICIN 120 MG/NS (PMX) 100 ML IVPB SCH (17:00)
--- NOTE | 2018-07-29 19:37 | CONS ---
Assessment/Plan Assessment/Plan Hospital Course (Demo Recall) ID PROGRESS NOTE CURRENT ABX: DAY # =>GENT IV + Flagyl 24H INTERVAL SUMMARY * Awake, alert, responsive, nods "Yes" when asked if he is doing OKVSS, NAD, no fevers - chronically ill appearing M w/(+)Trach * MICRO: (+)MRSA NARES, (+) UTI URINE CULTURE Final Organism 1 ACINETOBACTER BAUMANNII COLONY COUNT >100,000 CFU/ml * Acinetobacter susceptible to gentamicin tobramycin and Bactrim, blood cultures negative * Indwelling: Trach, PEG, PICC line, suprapubic catheter DIAGNOSTIC IMAGING * 07/27/18 CXR: There is aright-sided central line in place with its tip overlying the mid superior vena cava.. There is a endotracheal to in the midline. There are increased interstitial markings. There is bilateral pleural effusion as well as bilateral lung base consolidations. * CT abdomen pelvis revealed bibasilar atelectasis and small effusions. Small ascites. Left hydroureter due to multiple small 2 mm stones in the course of the ureter cannot rule out pyelonephritis. Gastrostomy tube in the distended stomach. PHYSICAL EXAMINATION: GENERAL: VSS, NAD HEENT: AT, NC, NECK: Supple, (+)Trach present CHEST: Rise symmetrical without dyspnea on observation HEART: Pulse RRR ABDOMEN: Benign EXTREMITIES: Warm, dry, wasted contractured SKIN: No rash, no diaphoresis == SEE PHOTOS MULTIPLE DECUBS ID ASSESSMENT 42 yo M admit with: 1. Resolving sepsis, s/p shock 2. Recurrent UTI/acute pyelonephritis 3. Acute on chronic respiratory failure ?PNA 4. Acute on chronic kidney disease 5. Incomplete quadriplegia 6. Anemia and thrombocytopenia 7. History of left nephrectomy 8. Multiple chronic decubitus ulcers 9. Diarrhea, rule out C. difficile (+)MRSA Nares ->Bactroban ABX ALLERGIES: TETRACYCLINES INVASIVES: PIV CURRENT ABX: DAY # GENT IV + Flagyl ID RECOMMENDATIONS/PLAN: 1. Continue current ABX over the weekend 2. Continue supportive care . Consultation Date/Type/Reason Admit Date/Time Jul 18, 2018 at 13:59 Initial Consult Date 07/18/18 Requesting Provider: JOSÉ ANTONIO MIRZA MD Date/Time of Note DATE: 07/29/18 TIME: 19:36 Exam/Review of Systems Exam Vitals Vital Signs Date Temp Pulse Resp B/P (MAP) Pulse Ox O2 O2 Flow FiO2 Time Delivery Rate 07/29/18 90 25 100 40 19:29 07/29/18 98.0 153/78 16:03 (103) 07/27/18 Mechanical 17:07 Ventilator Intake and Output 07/28/18 07/28/18 07/29/18 1515:00 23:00 07:00 IntakeIntake Total 610 ml OutputOutput Total 1100 ml 1800 ml BalanceBalance -1100 ml -1190 ml Results Result Diagram: 07/29/18 0611 07/29/18 0611 Results 24hrs Laboratory Tests Test 07/29/18 06:11 White Blood Count 3.5 L Red Blood Count 3.26 L Hemoglobin 8.8 L Hematocrit 31.7 L Mean Corpuscular Volume 97.2 Mean Corpuscular Hemoglobin 27.0 L Mean Corpuscular Hemoglobin Concent 27.8 L Red Cell Distribution Width 18.6 H Platelet Count 157 Mean Platelet Volume 12.7 H Immature Granulocytes % 0.300 Neutrophils % 69.2 Lymphocytes % 12.2 L Monocytes % 15.4 H Eosinophils % 2.3 Basophils % 0.6 Nucleated Red Blood Cells % 0.0 Immature Granulocytes # 0.010 Neutrophils # 2.4 Lymphocytes # 0.4 L Monocytes # 0.5 Eosinophils # 0.1 Basophils # 0.0 Nucleated Red Blood Cells # 0.0 Sodium Level 151 H Potassium Level 4.5 Chloride Level 120 H Carbon Dioxide Level 24 Anion Gap 7 Blood Urea Nitrogen 49 H Creatinine 1.38 H Est Glomerular Filtrat Rate mL/min 57 L Glucose Level 111 Calcium Level 8.9 Medications Medication Current Medications Bisacodyl (Dulcolax Supp) 10 mg DAILY [place] Last administered on 07/27/18at 09:25; Admin Dose 10 MG; Start 07/19/18 at 09:00 Multivitamins Therapeutic (Theragran) 1 tab DAILY GTB Last administered on 07/29/18at 08:35; Admin Dose 1 TAB; Start 07/19/18 at 09:00 Zinc Sulfate (Zinc Sulfate) 220 mg DAILY GTB Last administered on 07/29/18at 08:35; Admin Dose 220 MG; Start 07/19/18 at 09:00 IV Flush (NS 3 ml) 3 ml PER PROTOCOL IV ; Start 07/18/18 at 18:30 Ondansetron HCl (Zofran Inj) 4 mg Q6H PRN IV NAUSEA AND/OR VOMITING Last administered on 07/23/18 21:38; Admin Dose 4 MG; Start 07/18/18 at 18:30 Albuterol (Proventil 0.083% (Neb)) 2.5 mg Q2H RESP THERAPY PRN NEB SHORTNESS OF BREATH Last administered on 07/29/18 13:03; Admin Dose 2.5 MG; Start 07/18/18 at 18:30 Ipratropium [place] (Atrovent 0.02% (Neb)) 0.5 mg Q2H RESP THERAPY PRN NEB REYNA RTNESS OF BREATH Last administered on 07/29/18 13:03; Admin Dose 0.5 MG; Start 07/18/18 at 18:30 Hydromorphone HCl (Dilaudid) 0.5 mg Q4H PRN IV PAIN LEVEL 7-10 Last administered on 07/29/18 16:04; Admin Dose 0.5 MG; Start 07/18/18 at 18:30 Acetaminophen (Tylenol Liquid) 650 mg Q6H PRN GTB PAIN LEVEL 1-3 OR FEVER Last administered on 07/24/18 12:05; Admin Dose 650 MG; Start 07/19/18 at 10:30 Acetaminophen/ Hydrocodone Bitart ([place] (5/325)) 1 tab Q6H PRN GTB PAIN LEVEL 4-6 Last administered on 07/29/18 10:30; Admin Dose 1 TAB; Start 07/19/18 at 12:30 Docusate Sodium (Colace Liquid Cup) 100 mg Q12 PRN GTB CONSTIPATION Last administered on 07/27/18 09:25; Admin Dose 100 MG; Start 07/19/18 at 08:00 Docusate Sodium (Colace Liquid Cup) 100 mg QHS GTB Last administered on 07/28/18 22:53; Admin Dose 100 MG; Start 07/19/18 at 21:00 IV Flush (NS 10 ml) 10 ml PRN PRN IV FLUSH LINE; Start 07/19/18 at 18:30 Levetiracetam (Keppra Liquid) 500 mg Q12 GTB Last administered on 07/29/18 08: 35; Admin Dose 500 MG; Start 07/20/18 at 21:00 Gentamicin Sulfate (Gentamicin Iv Per Pharmacy) GENTAMICIN PER PHARMACY NOTE XX ; Start 07/20/18 at 14:00 Mupirocin (Bactroban) 1 applic BID TOP Last administered on 07/29/18 08:35; Admin Dose 1 APPLIC; Start 07/21/18 at 21:00 Metronidazole (Flagyl) 500 mg Q8 PO Last administered on 07/29/18 13:46; Admin Dose 500 MG; Start 07/21/18 at 14:00 Sodium Hypochlorite (Dakins Diluted ()) 1 applic BID TP Last administered on 07/29/18 08:35; Admin Dose 1 APPLIC; Start 07/22/18 at 09:00 Collagenase (Santyl) 1 applic BID TOP Last administered on 07/29/18 08:35; Admin Dose 1 APPLIC; Start 07/22/18 at 09:00 Famotidine (Pepcid Iv) 20 mg BID IV Last administered on 07/29/18 08:44; Admin Dose 20 MG; Start 07/23/18 at 21:00 Epoetin Prince-epbx (Retacrit (Non-Esrd)) 10,000 unit MoWeFr@1700 SC Last administered on 07/27/18 17:57; Admin Dose 10,000 UNIT; Start 07/23/18 at 18:30 Norepinephrine 250 ml @ 1.875 mls/ hr TITRATE IV ; Start 07/23/18 at 17:30 Metoclopramide HCl (Reglan) 5 mg TID IV Last administered on 07/29/18 13:46; Admin Dose 5 MG; Start 07/24/18 at 09:00 Gentamicin Sulfate 100 ml @ 200 mls/hr Q72H IVPB Last administered on 17:17; Admin Dose 200 MLS/HR; Start 07/29/18 at 17:00 Quetiapine Fumarate (Seroquel) 75 mg BID GTB ; Start 07/29/18 at 21:00 KELSI CERDA NP Jul 29, 2018 19:37
[2018-07-29] MEDS: DOCUSATE SODIUM 10 MG/ML (10ML CUP) GTB SCH (20:16)
[2018-07-30] VITALS (23 sets, daily range): BP systolic 119–155; BP diastolic 70–118; PULSE 92–129; RESP 18–28
[2018-07-30] MEDS: HYDROmorphONE 0.5 MG/0.5 ML SYG IV PRN ×6 (00:13→21:32)
[2018-07-30] MEDS: metroNIDAZOLE 500 MG TAB PO SCH ×2 (06:19→14:41)
[2018-07-30] MEDS: BISACODYL 10 MG SUPP PR SCH ×2 (09:00→09:15)
[2018-07-30] MEDS: MULTIVITAMINS THERAPEUTIC TAB GTB SCH (09:14)
[2018-07-30] MEDS: QUETIAPINE 25 MG TAB GTB SCH ×2 (09:14→21:29)
[2018-07-30] MEDS: BALSAM PERU/CASTOR OIL 60 GM TUBE TOP SCH ×2 (09:14→21:31)
[2018-07-30] MEDS: COLLAGENASE 5 GM (UD JAR) TOP SCH ×2 (09:14→21:31)
[2018-07-30] MEDS: LEVETIRACETAM (100 MG/ML) 5ML CUP GTB SCH ×2 (09:14→21:29)
[2018-07-30] MEDS: ZINC SULFATE 220 MG CAP GTB SCH (09:14)
[2018-07-30] MEDS: METOCLOPRAMIDE 10 MG INJ IV SCH ×3 (09:15→21:29)
[2018-07-30] MEDS: FAMOTIDINE 20 MG INJ IV SCH ×2 (09:15→21:29)
[2018-07-30] MEDS: MUPIROCIN 2% 22 GM OINT TOP SCH ×2 (09:15→21:31)
[2018-07-30] MEDS: DAKINS 0.0125%(1/40) 473 ML SOLUTION TP SCH ×2 (09:16→21:31)
--- NOTE | 2018-07-30 13:02 | CONS ---
Assessment/Plan Assessment/Plan Hospital Course (Demo Recall) 42 year old paraplegic male presents from SNF for sepsis secondary to pnuemonia and UTI was found to ileus vs SBO on KUB with one episode of coffee ground vomit. 1. Ileus vs SBO -resolved 2. Anemia, acute on chronic -neg FOB 3. Acute on chronic renal failure -h/o rt nephrectomy -improving 4. Sepsis secondary to pnuemonia and UTI 5. Pneumonia 6. UTI -Acinetobacter Baumannii 7. 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 Vent dependent respiratory failure 9. Dysphagia, s/p g tube 10. Bipolar disorder Plan Continue Pepcid and reglan Continue tube feeds Amitiza 24 mcg BID Pt examined and plan of care discussed with Dr. Borjas Consultation Date/Type/Reason Admit Date/Time Jul 18, 2018 at 13:59 Initial Consult Date 07/18/18 Requesting Provider: JOSÉ ANTONIO MIRZA MD Date/Time of Note DATE: 07/30/18 TIME: 12:56 24 HR Interval Summary Free Text/Dictation bm yesterday. NO abd pain. Tolerating tube feeds Exam/Review of Systems Exam Vitals Vital Signs Date Temp Pulse Resp B/P (MAP) Pulse Ox O2 O2 Flow FiO2 Time Delivery Rate 07/30/18 98.6 112 18 127/78 99 12:09 (94) 07/30/18 40 05:31 07/30/18 Mechanical 00:17 Ventilator Intake and Output 07/29/18 07/29/18 07/30/18 1515:00 23:00 07:00 IntakeIntake Total 100 ml 1323 ml OutputOutput Total 1000 ml 900 ml BalanceBalance -900 ml 423 ml Constitutional: alert, oriented Psych: no complaints Head: normocephalic Eyes: PERRL Respiratory: normal air movement, congested cough Cardiovascular: regular rate and rhythm Gastrointestinal: soft, non-tender Neurological: nl mental status Results Result Diagram: 07/30/18 0948 07/30/18 0948 Results 24hrs Laboratory Tests Test 07/30/18 09:48 White Blood Count 3.6 L Red Blood Count 3.54 L Hemoglobin 9.7 L Hematocrit 35.0 L Mean Corpuscular Volume 98.9 Mean Corpuscular Hemoglobin 27.4 L Mean Corpuscular Hemoglobin Concent 27.7 L Red Cell Distribution Width 18.8 H Platelet Count 150 Mean Platelet Volume 11.5 H Immature Granulocytes % 0.300 Neutrophils % 69.9 Lymphocytes % 13.8 L Monocytes % 13.2 H Eosinophils % 2.5 Basophils % 0.3 Nucleated Red Blood Cells % 0.0 Immature Granulocytes # 0.010 Neutrophils # 2.5 Lymphocytes # 0.5 L Monocytes # 0.5 Eosinophils # 0.1 Basophils # 0.0 Nucleated Red Blood Cells # 0.0 Sodium Level 155 H Potassium Level 5.0 Chloride Level 122 H Carbon Dioxide Level 22 Anion Gap 11 Blood Urea Nitrogen 45 H Creatinine 1.30 H Est Glomerular Filtrat Rate mL/min > 60 Glucose Level 110 Calcium Level 9.2 Medications Medication Current Medications Bisacodyl (Dulcolax Supp) 10 mg DAILY [place] Last administered on 07/30/18 09:15; Admin Dose 10 MG; Start 07/19/18 at 09:00 Multivitamins Therapeutic (Theragran) 1 tab DAILY GTB Last administered on 07/30/18 09:14; Admin Dose 1 TAB; Start 07/19/18 at 09:00 Zinc Sulfate (Zinc Sulfate) 220 mg DAILY GTB Last administered on 07/30/18 09:14; Admin Dose 220 MG; Start 07/19/18 at 09:00 IV Flush (NS 3 ml) 3 ml PER PROTOCOL IV ; Start 07/18/18 at 18:30 Ondansetron HCl (Zofran Inj) 4 mg Q6H PRN IV NAUSEA AND/OR VOMITING Last administered on 07/23/18 21:38; Admin Dose 4 MG; Start 07/18/18 at 18:30 Albuterol (Proventil 0.083% (Neb)) 2.5 mg Q2H RESP THERAPY PRN NEB SHORTNESS OF BREATH Last administered on 07/29/18 23:00; Admin Dose 2.5 MG; Start 07/18/18 at 18:30 Ipratropium [place] (Atrovent 0.02% (Neb)) 0.5 mg Q2H RESP THERAPY PRN NEB SHORTNESS OF BREATH Last administered on 07/29/18 23:00; Admin Dose 0.5 MG; Start 07/18/18 at 18:30 Hydromorphone HCl (Dilaudid) 0.5 mg Q4H PRN IV PAIN LEVEL 7-10 Last administered on 07/30/18 09:46; Admin Dose 0.5 MG; Start 07/18/18 at 18:30 Acetaminophen (Tylenol Liquid) 650 mg Q6H PRN GTB PAIN LEVEL 1-3 OR FEVER Last administered on 07/24/18 12:05; Admin Dose 650 MG; Start 07/19/18 at 10:30 Acetaminophen/ Hydrocodone Bitart ([place] (5/325)) 1 tab Q6H PRN GTB PAIN LEVEL 4-6 Last administered on 07/29/18at 10:30; Admin Dose 1 TAB; Start 07/19/18 at 12:30 Docusate Sodium (Colace Liquid Cup) 100 mg Q12 PRN GTB CONSTIPATION Last administered on 07/27/18 09:25; Admin Dose 100 MG; Start 07/19/18 at 08:00 Docusate Sodium (Colace Liquid Cup) 100 mg QHS GTB Last administered on 07/29/18 at 20:16; Admin Dose 100 MG; Start 07/19/18 at 21:00 IV Flush (NS 10 ml) 10 ml PRN PRN IV FLUSH LINE; Start 07/19/18 at 18:30 Levetiracetam (Keppra Liquid) 500 mg Q12 GTB Last administered on 07/30/18 09:14; Admin Dose 500 MG; Start 07/20/18 at 21:00 Gentamicin Sulfate (Gentamicin Iv Per Pharmacy) GENTAMICIN PER PHARMACY NOTE XX ; Start 07/20/18 at 14:00 Mupirocin (Bactroban) 1 applic BID TOP Last administered on 07/30/18 09:15; Admin Dose 1 APPLIC; Start 07/21/18 at 21:00 Metronidazole (Flagyl) 500 mg Q8 PO Last administered on 07/30/18 06:19; Admin Dose 500 MG; Start 07/21/18 at 14:00 Sodium Hypochlorite (Dakins Diluted (40)) 1 applic BID TP Last administered on 07/30/18 09:16; Admin Dose 1 APPLIC; Start 07/22/18 at 09:00 Collagenase (Santyl) 1 applic BID TOP Last administered on 07/30/18 09:14; Admin Dose 1 APPLIC; Start 07/22/18 at 09:00 Famotidine (Pepcid Iv) 20 mg BID IV Last administered on 07/30/18 09:15; Admin Dose 20 MG; Start 07/23/18 at 21:00 Epoetin Prince-epbx (Retacrit (Non-Esrd)) 10,000 unit MoWeFr@1700 SC Last administered on 07/27/18 17:57; Admin Dose 10,000 UNIT; Start 07/23/18 at 18:30 Norepinephrine 250 ml @ 1.875 mls/ hr TITRATE IV ; Start 07/23/18 at 17:30 Metoclopramide HCl (Reglan) 5 mg TID IV Last administered on 07/30/18 09:15; Admin Dose 5 MG; Start 07/24/18 at 09:00 Gentamicin Sulfate 100 ml @ 200 mls/hr Q72H IVPB Last administered on 07/29/18 17:17; Admin Dose 200 MLS/HR; Start 07/29/18 at 17:00 Quetiapine Fumarate (Seroquel) 75 mg BID GTB Last administered on 07/30/18 09:14; Admin Dose 75 MG; Start 07/29/18 at 21:00 ISIAH SEYMOUR Jul 30, 2018 13:02
--- NOTE | 2018-07-30 13:47 | PN ---
DATE: 07/30/2018 SUBJECTIVE: The patient is on long-term ventilator support, breathing comfortably without any appare nt respiratory distress. PHYSICAL EXAMINATION: VITAL SIGNS: Stable. No fever spikes. Temperature 98.6, blood pressure 127/78, pulse rate 112, res pirations 18, pulse oximetry 99% saturation. He is on 40% oxygen through ventilator. NECK: Tracheal secretions are mucoid. No gross bleeding seen. HEART: Regular sinus rhythm. CHEST: Breath sounds are heard bilaterally, diminished in both the lower lung [place] with rales and rhonchi at the lung bases. ABDOMEN: Soft. No distention seen. Tolerating G-tube feedings. Bowel sounds are present. EXTREMITIES: Show no edema. NEUROLOGIC: He is paraplegic. LABORATORY TESTS: Show sodium 155, potassium 5, BUN 45, creatinine 1.3, glucose 110. Both BUN and c reatinine are progressively improving. CBC shows WBC 3600, hemoglobin 9.7, hematocrit 35, platelets 150,000. IMPRESSION: 1. Resolving sepsis. 2. Questionable pneumonia with chronic chest x-ray findings. 3. Chronic ventilator dependent respiratory failure. 4. Chronic kidney disease with acute kidney injury, improving. 5. Chronic anemia. 6. History of nephrolithiasis. 7. 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 8. History of bipolar disorder. PLAN: 1. Continue long-term ventilator support. 2. Continue antibiotics as per the infectious disease mgmt consultant. 3. Continue bronchodilator inhalation therapy to clear the secretions and improve bronchial hygiene. 4. Continue hydration. 5. Continue supportive therapy. Dictated By: HUMBERTO PEREZ MD SR/NTS Conf#: [id number] DID#: [id number] CC: JOSÉ ANTONIO MIRZA MD;*EndCC*
[2018-07-30] MEDS: IPRATROPIUM (NEB) 0.5 MG/2.5 ML AMP NEB PRN (13:48)
[2018-07-30] MEDS: ALBUTEROL 0.083% (NEB) 2.5 MG/3 ML AMP NEB PRN (13:48)
--- NOTE | 2018-07-30 14:48 | CONS ---
Assessment/Plan Assessment/Plan Hospital Course (Demo Recall) No acute events Antimicrobials: Gentamicin, Flagyl Microbiology: Urine culture grew Acinetobacter susceptible to gentamicin tobramycin and Bactrim, blood cultures negative Allergies: Tetracyclines Indwelling: Trach, PEG, PICC line, suprapubic catheter CT abdomen pelvis revealed bibasilar atelectasis and small effusions. Small ascites. Left hydroureter due to multiple small 2 mm stones in the course of the ureter cannot rule out pyelonephritis. Gastrostomy tube in the distended [facility]. Physical examination: Chronically ill-appearing wasted middle-aged man who is awake in no distress. Head atraumatic normocephalic sclera nonicteric vehicle mucosa dry neck is supple tracheostomy present chest rise symmetrical breath sounds diminished the bases. Heart: S1-S2. Abdomen soft bowel sounds present. Extremities wasted contractured Assessment: 1. Resolving sepsis, s/p shock 2. Recurrent UTI/acute pyelonephritis 3. Acute on chronic respiratory failure ?PNA 4. Acute on chronic kidney disease 5. Incomplete quadriplegia 6. Anemia and thrombocytopenia 7. History of left breast nephrectomy 8. Multiple chronic decubitus ulcers 9. Diarrhea, rule out C. difficile 10. MRSA colonization of the naris Plan: Stable, dc ABX Consultation Date/Type/Reason Admit Date/Time Jul 18, 2018 at 13:59 Initial Consult Date 07/18/18 Type of Consult id Requesting Provider: JOSÉ ANTONIO MIRZA MD Date/Time of Note DATE: 07/30/18 TIME: 14:47 Exam/Review of Systems Exam Vitals Vital Signs Date Temp Pulse Resp B/P (MAP) Pulse Ox O2 O2 Flow FiO2 Time Delivery Rate 07/30/18 98.6 112 18 127/78 99 12:09 (94) 07/30/18 40 05:31 07/30/18 Mechanical 00:17 Ventilator Intake and Output 07/29/18 07/29/18 07/30/18 1515:00 23:00 07:00 IntakeIntake Total 100 ml 1323 ml OutputOutput Total 1000 ml 900 ml BalanceBalance -900 ml 423 ml Results Result Diagram: 07/30/18 0948 07/30/18 0948 Results 24hrs Laboratory Tests Test 07/30/18 09:48 White Blood Count 3.6 L Red Blood Count 3.54 L Hemoglobin 9.7 L Hematocrit 35.0 L Mean Corpuscular Volume 98.9 Mean Corpuscular Hemoglobin 27.4 L Mean Corpuscular Hemoglobin Concent 27.7 L Red Cell Distribution Width 18.8 H Platelet Count 150 Mean Platelet Volume 11.5 H Immature Granulocytes % 0.300 Neutrophils % 69.9 Lymphocytes % 13.8 L Monocytes % 13.2 H Eosinophils % 2.5 Basophils % 0.3 Nucleated Red Blood Cells % 0.0 Immature Granulocytes # 0.010 Neutrophils # 2.5 Lymphocytes # 0.5 L Monocytes # 0.5 Eosinophils # 0.1 Basophils # 0.0 Nucleated Red Blood Cells # 0.0 Sodium Level 155 H Potassium Level 5.0 Chloride Level 122 H Carbon Dioxide Level 22 Anion Gap 11 Blood Urea Nitrogen 45 H Creatinine 1.30 H Est Glomerular Filtrat Rate mL/min > 60 Glucose Level 110 Calcium Level 9.2 Medications Medication Current Medications Bisacodyl (Dulcolax Supp) 10 mg DAILY [place] Last administered on 07/30/18 09:15; Admin Dose 10 MG; Start 07/19/18 at 09:00 Multivitamins Therapeutic (Theragran) 1 tab DAILY GTB Last administered on 07/30/18 09:14; Admin Dose 1 TAB; Start 07/19/18 at 09:00 Zinc Sulfate (Zinc Sulfate) 220 mg DAILY GTB Last administered on 07/30/18 09:14; Admin Dose 220 MG; Start 07/19/18 at 09:00 IV Flush (NS 3 ml) 3 ml PER PROTOCOL IV ; Start 07/18/18 at 18:30 Ondansetron HCl (Zofran Inj) 4 mg Q6H PRN IV NAUSEA AND/OR VOMITING Last administered on 07/23/18 21:38; Admin Dose 4 MG; Start 07/18/18 at 18:30 Albuterol (Proventil 0.083% (Neb)) 2.5 mg Q2H RESP THERAPY PRN NEB SHORTNESS OF BREATH Last administered on 07/30/18 13:48; Admin Dose 2.5 MG; Start 07/18/18 at 18:30 Ipratropium [place] (Atrovent 0.02% (Neb)) 0.5 mg Q2H RESP THERAPY PRN NEB SHOR TNESS OF BREATH Last administered on 07/30/18 13:48; Admin Dose 0.5 MG; Start 07/18/18 at 18:30 Hydromorphone HCl (Dilaudid) 0.5 mg Q4H PRN IV PAIN LEVEL 7-10 Last administered on 07/30/18 13:47; Admin Dose 0.5 MG; Start 07/18/18 at 18:30 Acetaminophen (Tylenol Liquid) 650 mg Q6H PRN GTB PAIN LEVEL 1-3 OR FEVER Last administered on 07/24/18 12:05; Admin Dose 650 MG; Start 07/19/18 at 10:30 Acetaminophen/ Hydrocodone Bitart ([place] (5/325)) 1 tab Q6H PRN GTB PAIN LEVEL 4-6 Last administered on 07/29/18 10:30; Admin Dose 1 TAB; Start 07/19/18 at 12:30 Docusate Sodium (Colace Liquid Cup) 100 mg Q12 PRN GTB CONSTIPATION Last administered on 07/27/18 09:25; Admin Dose 100 MG; Start 07/19/18 at 08:00 Docusate Sodium (Colace Liquid Cup) 100 mg QHS GTB Last administered on 07/29/18 20:16; Admin Dose 100 MG; Start 07/19/18 at 21:00 IV Flush (NS 10 ml) 10 ml PRN PRN IV FLUSH LINE; Start 07/19/18 at 18:30 Levetiracetam (Keppra Liquid) 500 mg Q12 GTB Last administered on 07/30/18 09:14; Admin Dose 500 MG; Start 07/20/18 at 21:00 Gentamicin Sulfate (Gentamicin Iv Per Pharmacy) GENTAMICIN PER PHARMACY NOTE XX ; Start 07/20/18 at 14:00 Mupirocin (Bactroban) 1 applic BID TOP Last administered on 07/30/18 09:15; Admin Dose 1 APPLIC; Start 07/21/18 at 21:00 Metronidazole (Flagyl) 500 mg Q8 PO Last administered on 07/30/18 14:41; Admin Dose 500 MG; Start 07/21/18 at 14:00 Sodium Hypochlorite (Dakins Diluted ()) 1 applic BID TP Last administered on 07/30/18 09:16; Admin Dose 1 APPLIC; Start 07/22/18 at 09:00 Collagenase (Santyl) 1 applic BID TOP Last administered on 07/30/18 09:14; Admin Dose 1 APPLIC; Start 07/22/18 at 09:00 Famotidine (Pepcid Iv) 20 mg BID IV Last administered on 07/30/18 09:15; Admin Dose 20 MG; Start 07/23/18 at 21:00 Epoetin Prince-epbx (Retacrit (Non-Esrd)) 10,000 unit MoWeFr@1700 SC Last administered on 07/27/18at 17:57; Admin Dose 10,000 UNIT; Start 07/23/18 at 18:30 Norepinephrine 250 ml @ 1.875 mls/ hr TITRATE IV ; Start 07/23/18 at 17:30 Metoclopramide HCl (Reglan) 5 mg TID IV Last administered on 07/30/18 14:41; Admin Dose 5 MG; Start 07/24/18 at 09:00 Gentamicin Sulfate 100 ml @ 200 mls/hr Q72H IVPB Last administered on 17:17; Admin Dose 200 MLS/HR; Start 07/29/18 at 17:00 Quetiapine Fumarate (Seroquel) 75 mg BID GTB Last administered on 07/30/18 09:14; Admin Dose 75 MG; Start 07/29/18 at 21:00 Lubiprostone (Amitiza) 24 mcg BID PO ; Start 07/30/18 at 21:00 REGINALDO CHERY NP Jul 30, 2018 14:48
--- NOTE | 2018-07-30 16:53 | PN ---
Date/Time of Note Date/Time of Note DATE: 07/30/18 TIME: 16:53 Assessment/Plan VTE Prophylaxis Risk score (from Ns)>0 risk: 6 SCD applied (from Ns): Yes Pharmacological prophylaxis: heparin Lines/Catheters IV [facility] (from [facility] PICC Line Central line still needed: Yes Assessment/Plan Hospital Course Patient continues on ventilatory support without distress tolerates G-tube feeding well, hypernatremia, continue free water via G-tube. Assessment/Plan - Anemia multifactorial, chronic disease and blood loss. S/p blood transfusion, continue Epogen. - Possible GI bleed. Dr. Borjas is following in gastroenterology consultation. - Ileus versus small bowel obstruction. - Sepsis with shock injury to possible healthcare acquired pneumonia and UTI, continue abx per ID. Dr. Maciel is following in infection disease consultation. - Acute on chronic renal failure. Continue to monitor BUN and creatinine. Dr. Barker is following in nephrology consultation. - Ventilator dependent respiratory failure, continue pulmonary toilet and bronchodilators. Dr Ames is following in pulmonology consultation. - Neurogenic bladder with suprapubic catheter. - Dysphagia with gastrostomy tube. - Multiple decubitus ulcers present on admission. - Cervical spine injury with paraplegia. - Bipolar disorder with psychosis. - Hx of right nephrectomy - Hx of left renal nephrolithiasis, hx of lithotripsy with insertion and subsequent removal of ureteral JJ stent. Further recommendations based on clinical course. Plan of care discussed with Dr. Barreto. Result Diagram: 07/30/18 0948 07/30/18 0948 Results 24hrs Laboratory Tests Test 07/30/18 09:48 White Blood Count 3.6 L Red Blood Count 3.54 L Hemoglobin 9.7 L Hematocrit 35.0 L Mean Corpuscular Volume 98.9 Mean Corpuscular Hemoglobin 27.4 L Mean Corpuscular Hemoglobin Concent 27.7 L Red Cell Distribution Width 18.8 H Platelet Count 150 Mean Platelet Volume 11.5 H Immature Granulocytes % 0.300 Neutrophils % 69.9 Lymphocytes % 13.8 L Monocytes % 13.2 H Eosinophils % 2.5 Basophils % 0.3 Nucleated Red Blood Cells % 0.0 Immature Granulocytes # 0.010 Neutrophils # 2.5 Lymphocytes # 0.5 L Monocytes # 0.5 Eosinophils # 0.1 Basophils # 0.0 Nucleated Red Blood Cells # 0.0 Sodium Level 155 H Potassium Level 5.0 Chloride Level 122 H Carbon Dioxide Level 22 Anion Gap 11 Blood Urea Nitrogen 45 H Creatinine 1.30 H Est Glomerular Filtrat Rate mL/min > 60 Glucose Level 110 Calcium Level 9.2 Exam/Review of Systems Exam Vitals Vital Signs Date Temp Pulse Resp B/P (MAP) Pulse Ox O2 O2 Flow FiO2 Time Delivery Rate 07/30/18 98.0 100 18 121/70 98 16:09 (87) 07/30/18 40 05:31 07/30/18 Mechanical 00:17 Ventilator Intake and Output 07/29/18 07/29/18 07/30/18 1515:00 23:00 07:00 IntakeIntake Total 100 ml 1323 ml OutputOutput Total 1000 ml 900 ml BalanceBalance -900 ml 423 ml Exam Constitutional: alert, awake Neck: supple, other (Tracheostomy) Respiratory: diminished breath sounds Cardiovascular: regular rate and rhythm Gastrointestinal: soft, non-tender, other (G-tube) Genitourinary - Male: other (Suprapubic catheter) Extremities: normal pulses, other (Contracted) Neurological: other (Paraplegia) Skin: other (Multiple wounds) Results Results 24hrs Laboratory Tests Test 07/30/18 09:48 White Blood Count 3.6 L Red Blood Count 3.54 L Hemoglobin 9.7 L Hematocrit 35.0 L Mean Corpuscular Volume 98.9 Mean Corpuscular Hemoglobin 27.4 L Mean Corpuscular Hemoglobin Concent 27.7 L Red Cell Distribution Width 18.8 H Platelet Count 150 Mean Platelet Volume 11.5 H Immature Granulocytes % 0.300 Neutrophils % 69.9 Lymphocytes % 13.8 L Monocytes % 13.2 H Eosinophils % 2.5 Basophils % 0.3 Nucleated Red Blood Cells % 0.0 Immature Granulocytes # 0.010 Neutrophils # 2.5 Lymphocytes # 0.5 L Monocytes # 0.5 Eosinophils # 0.1 Basophils # 0.0 Nucleated Red Blood Cells # 0.0 Sodium Level 155 H Potassium Level 5.0 Chloride Level 122 H Carbon Dioxide Level 22 Anion Gap 11 Blood Urea Nitrogen 45 H Creatinine 1.30 H Est Glomerular Filtrat Rate mL/min > 60 Glucose Level 110 Calcium Level 9.2 Medications Medication Current Medications Bisacodyl (Dulcolax Supp) 10 mg DAILY [place] Last administered on 07/30/18 09:15; Admin Dose 10 MG; Start 07/19/18 at 09:00 Multivitamins Therapeutic (Theragran) 1 tab DAILY GTB Last administered on 07/30/18 09:14; Admin Dose 1 TAB; Start 07/19/18 at 09:00 Zinc Sulfate (Zinc Sulfate) 220 mg DAILY GTB Last administered on 07/30/18 09:14; Admin Dose 220 MG; Start 07/19/18 at 09:00 IV Flush (NS 3 ml) 3 ml PER PROTOCOL IV ; Start 07/18/18 at 18:30 Ondansetron HCl (Zofran Inj) 4 mg Q6H PRN IV NAUSEA AND/OR VOMITING Last administered on 07/23/18 21:38; Admin Dose 4 MG; Start 07/18/18 at 18:30 Albuterol (Proventil 0.083% (Neb)) 2.5 mg Q2H RESP THERAPY PRN NEB SHORTNESS OF BREATH Last administered on 07/30/18 13:48; Admin Dose 2.5 MG; Start 07/18/18 at 18:30 Ipratropium [place] (Atrovent 0.02% (Neb)) 0.5 mg Q2H RESP THERAPY PRN NEB SHORTNESS OF BREATH Last administered on 07/30/18 13:48; Admin Dose 0.5 MG; Start 07/18/18 at 18:30 Hydromorphone HCl (Dilaudid) 0.5 mg Q4H PRN IV PAIN LEVEL 7-10 Last administered on 07/30/18 13:47; Admin Dose 0.5 MG; Start 07/18/18 at 18:30 Acetaminophen (Tylenol Liquid) 650 mg Q6H PRN GTB PAIN LEVEL 1-3 OR FEVER Last administered on 07/24/18 12:05; Admin Dose 650 MG; Start 07/19/18 at 10:30 Acetaminophen/ Hydrocodone Bitart ([place] (5/325)) 1 tab Q6H PRN GTB PAIN LEVEL 4-6 Last administered on 07/29/18 10:30; Admin Dose 1 TAB; Start 07/19/18 at 12:30 Docusate Sodium (Colace Liquid Cup) 100 mg Q12 PRN GTB CONSTIPATION Last administered on 07/27/18 09:25; Admin Dose 100 MG; Start 07/19/18 at 08:00 Docusate Sodium (Colace Liquid Cup) 100 mg QHS GTB Last administered on 07/29/18 20:16; Admin Dose 100 MG; Start 07/19/18 at 21:00 IV Flush (NS 10 ml) 10 ml PRN PRN IV FLUSH LINE; Start 07/19/18 at 18:30 Levetiracetam (Keppra Liquid) 500 mg Q12 GTB Last administered on 07/30/18 09:14; Admin Dose 500 MG; Start 07/20/18 at 21:00 Mupirocin (Bactroban) 1 applic BID TOP Last administered on 07/30/18 09:15; Admin Dose 1 APPLIC; Start 07/21/18 at 21:00 Sodium Hypochlorite (Dakins Diluted (40)) 1 applic BID TP Last administered on 07/30/18 09:16; Admin Dose 1 APPLIC; Start 07/22/18 at 09:00 Collagenase (Santyl) 1 applic BID TOP Last administered on 07/30/18 09:14; Admin Dose 1 APPLIC; Start 07/22/18 at 09:00 Famotidine (Pepcid Iv) 20 mg BID IV Last administered on 07/30/18 09:15; Admin Dose 20 MG; Start 07/23/18 at 21:00 Epoetin [place]-epbx (Retacrit (Non-Esrd)) 10,000 unit MoWeFr@1700 SC Last administered on 07/27/18 17:57; Admin Dose 10,000 UNIT; Start 07/23/18 at 18:30 Norepinephrine 250 ml @ 1.875 mls/ hr TITRATE IV ; Start 07/23/18 at 17:30 Metoclopramide HCl (Reglan) 5 mg TID IV Last administered on 07/30/18 14:41; Admin Dose 5 MG; Start 07/24/18 at 09:00 Quetiapine Fumarate (Seroquel) 75 mg BID GTB Last administered on 07/30/18 09:14; Admin Dose 75 MG; Start 07/29/18 at 21:00 Lubiprostone (Amitiza) 24 mcg BID PO ; Start 07/30/18 at 21:00 AISSATOU DUNCAN Jul 30, 2018 16:53
[2018-07-30] MEDS: EPOETIN ALFA-EPBX (NON-ESRD 10,000 UNIT/ML VIAL SC SCH (17:16)
[2018-07-30] MEDS: DEXTROSE 5% 1,000 ML IV SCH (17:41)
[2018-07-30] MEDS: HYDROCODONE/APAP (5/325) TAB GTB PRN (19:57)
--- NOTE | 2018-07-30 21:03 | CONS ---
Assessment/Plan Assessment/Plan Assessment/Plan (Daily) - Anemia- Hgb 8.1 today; sp 1 unit PRBC - Hypernatremia- 155today - start D5W at 50 cc/ hr 1. Acute Renal failure with severe Uremia, BUN/ Cr trended down to 45/ 1.30 today 2. Septic shock- SP Levophed due to PNA and UTI 3. PNA concerned about HCAP 4. UTI 5. 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 ventilator dependent respiratory failure with tracheostomy 7. dysphagia with G-tube 8. chronic kidney disease III 9. history of right nephrectomy 10. left renal nephrolithiasis 11. bipolar disorder 12. Anemia -sp blood transfusion Plan: BP still labile IV abx for Septic shock, Renally dose all abx and monitor electrolytes SP IV albumin 25% 100ml Q 8 hr x 3 doses UO 1.9 L /24 hr We will continue to follow up Patient seen in collaboration with Dr Paul Barker. dw staff Consultation Date/Type/Reason Admit Date/Time Jul 18, 2018 at 13:59 Initial Consult Date 07/18/18 Type of Consult Nephrology Reason for Consultation BELINDA Requesting Provider: JOSÉ ANTONIO MIRZA MD Date/Time of Note DATE: 07/30/18 TIME: 21:01 24 HR Interval Summary Free Text/Dictation NAD seems comfortable on supplement oxygen no acute issues reported last night dw staff Subjective hx not possible: pt non-verbal Constitutional: requiring IVF, requiring O2 Detailed Summary Respiratory: no complaints Cardiovascular: no complaints Gastrointestinal: no complaints Musculoskeletal: restricted range of motion Exam/Review of Systems Exam Vitals Vital Signs Date Temp Pulse Resp B/P (MAP) Pulse Ox O2 O2 Flow FiO2 Time Delivery Rate 07/30/18 98.0 98 20 155/118 100 20:00 (130) 07/30/18 40 17:14 07/30/18 Mechanical 00:17 Ventilator Intake and Output 07/29/18 07/29/18 07/30/18 1515:00 23:00 07:00 IntakeIntake Total 100 ml 1323 ml OutputOutput Total 1000 ml 900 ml BalanceBalance -900 ml 423 ml Constitutional: alert, non-verbal, frail Psych: nl mood/affect Eyes: nl sclera ENMT: nl external ears & nose Neck: non-tender, other (tach inatct) Respiratory: diminished breath sounds (bilateral at bases) Cardiovascular: nl pulses, other (s1s2) Gastrointestinal: soft, other (gt intact) Musculoskeletal: muscle weakness Extremities: normal pulses Neurological: confused, other (alert/repsonsive) Skin: other (decubs) Results Result Diagram: 07/30/1848 07/30/18 0948 Results 24hrs Laboratory Tests Test 07/30/18 09:48 White Blood Count 3.6 L Red Blood Count 3.54 L Hemoglobin 9.7 L Hematocrit 35.0 L Mean Corpuscular Volume 98.9 Mean Corpuscular Hemoglobin 27.4 L Mean Corpuscular Hemoglobin Concent 27.7 L Red Cell Distribution Width 18.8 H Platelet Count 150 Mean Platelet Volume 11.5 H Immature Granulocytes % 0.300 Neutrophils % 69.9 Lymphocytes % 13.8 L Monocytes % 13.2 H Eosinophils % 2.5 Basophils % 0.3 Nucleated Red Blood Cells % 0.0 Immature Granulocytes # 0.010 Neutrophils # 2.5 Lymphocytes # 0.5 L Monocytes # 0.5 Eosinophils # 0.1 Basophils # 0.0 Nucleated Red Blood Cells # 0.0 Sodium Level 155 H Potassium Level 5.0 Chloride Level 122 H Carbon Dioxide Level 22 Anion Gap 11 Blood Urea Nitrogen 45 H Creatinine 1.30 H Est Glomerular Filtrat Rate mL/min > 60 Glucose Level 110 Calcium Level 9.2 Medications Medication Current Medications Bisacodyl (Dulcolax Supp) 10 mg DAILY [place] Last administered on 07/27/18at 09:25; Admin Dose 10 MG; Start 07/19/18 at 09:00 Multivitamins Therapeutic (Theragran) 1 tab DAILY GTB Last administered on 07/30/18at 09:14; Admin Dose 1 TAB; Start 07/19/18 at 09:00 Zinc Sulfate (Zinc Sulfate) 220 mg DAILY GTB Last administered on 07/30/18at 09:14; Admin Dose 220 MG; Start 07/19/18 at 09:00 IV Flush (NS 3 ml) 3 ml PER PROTOCOL IV ; Start 07/18/18 at 18:30 Ondansetron HCl (Zofran Inj) 4 mg Q6H PRN IV NAUSEA AND/OR VOMITING Last administered on 07/23/18at 21:38; Admin Dose 4 MG; Start 07/18/18 at 18:30 Albuterol (Proventil 0.083% (Neb)) 2.5 mg Q2H RESP THERAPY PRN NEB SHORTNESS OF BREATH Last administered on 07/30/18 13:48; Admin Dose 2.5 MG; Start 07/18/18 at 18:30 Ipratropium [place] (Atrovent 0.02% (Neb)) 0.5 mg Q2H RESP THERAPY PRN NEB SHORTNESS OF BREATH Last administered on 07/30/18 13:48; Admin Dose 0.5 MG; Start 07/18/18 at 18:30 Hydromorphone HCl (Dilaudid) 0.5 mg Q4H PRN IV PAIN LEVEL 7-10 Last ad ministered on 07/30/18 17:41; Admin Dose 0.5 MG; Start 07/18/18 at 18:30 Acetaminophen (Tylenol Liquid) 650 mg Q6H PRN GTB PAIN LEVEL 1-3 OR FEVER Last administered on 07/24/18 12:05; Admin Dose 650 MG; Start 07/19/18 at 10:30 Acetaminophen/ Hydrocodone Bitart ([place] (5/325)) 1 tab Q6H PRN GTB PAIN LEVEL 4-6 Last administered on 07/30/18 19:57; Admin Dose 1 TAB; Start 07/19/18 at 12:30 Docusate Sodium (Colace Liquid Cup) 100 mg Q12 PRN GTB CONSTIPATION Last administered on 07/27/18 09:25; Admin Dose 100 MG; Start 07/19/18 at 08:00 Docusate Sodium (Colace Liquid Cup) 100 mg QHS GTB Last administered on 07/29/18 20:16; Admin Dose 100 MG; Start 07/19/18 at 21:00 IV Flush (NS 10 ml) 10 ml PRN PRN IV FLUSH LINE; Start 07/19/18 at 18:30 Levetiracetam (Keppra Liquid) 500 mg Q12 GTB Last administered on 07/30/18 09:14; Admin Dose 500 MG; Start 07/20/18 at 21:00 Mupirocin (Bactroban) 1 applic BID TOP Last administered on 07/30/18 09:15; Admin Dose 1 APPLIC; Start 07/21/18 at 21:00 Sodium Hypochlorite (Dakins Diluted (1/40)) 1 applic BID TP Last administered on 07/30/18 09:16; Admin Dose 1 APPLIC; Start 07/22/18 at 09:00 Collagenase (Santyl) 1 applic BID TOP Last administered on 07/30/18 09:14; Admin Dose 1 APPLIC; Start 07/22/18 at 09:00 Famotidine (Pepcid Iv) 20 mg BID IV Last administered on 07/30/18 09:15; Admin Dose 20 MG; Start 07/23/18 at 21:00 Epoetin [place]-epbx (Retacrit (Non-Esrd)) 10,000 unit MoWeFr@1700 SC Last administered on 07/30/18 17:16; Admin Dose 10,000 UNIT; Start 07/23/18 at 18:30 Norepinephrine 250 ml @ 1.875 mls/ hr TITRATE IV ; Start 07/23/18 at 17:30 Metoclopramide HCl (Reglan) 5 mg TID IV Last administered on 07/30/18 14:41; Admin Dose 5 MG; Start 07/24/18 at 09:00 Quetiapine Fumarate (Seroquel) 75 mg BID GTB Last administered on 07/30/18 09:14; Admin Dose 75 MG; Start 07/29/18 at 21:00 Lubiprostone (Amitiza) 24 mcg BID PO ; Start 07/30/18 at 21:00 Dextrose 1,000 ml @ 60 mls/hr [id number] IV Last administered on 07/30/18 17:41; Admin Dose 60 MLS/HR; Start 07/30/18 at 17:30; Stop 08/01/18 at 02:49 NAE VELAZCO Jul 30, 2018 21:03
[2018-07-30] MEDS: DOCUSATE SODIUM 10 MG/ML (10ML CUP) GTB SCH (21:29)
[2018-07-30] MEDS: LUBIPROSTONE 24 MCG CAP PO SCH (21:30)
[2018-07-31] VITALS (22 sets, daily range): BP systolic 123–138; BP diastolic 78–105; PULSE 91–149; RESP 18–38
[2018-07-31] MEDS: HYDROmorphONE 0.5 MG/0.5 ML SYG IV PRN ×5 (01:58→21:40)
[2018-07-31] MEDS: HYDROCODONE/APAP (5/325) TAB GTB PRN ×3 (04:17→23:12)
[2018-07-31] MEDS: ALBUTEROL 0.083% (NEB) 2.5 MG/3 ML AMP NEB PRN (08:28)
[2018-07-31] MEDS: IPRATROPIUM (NEB) 0.5 MG/2.5 ML AMP NEB PRN (08:28)
[2018-07-31] MEDS: LEVETIRACETAM (100 MG/ML) 5ML CUP GTB SCH ×2 (08:42→21:21)
[2018-07-31] MEDS: COLLAGENASE 5 GM (UD JAR) TOP SCH ×2 (08:43→21:22)
[2018-07-31] MEDS: FAMOTIDINE 20 MG INJ IV SCH ×2 (08:43→21:21)
[2018-07-31] MEDS: METOCLOPRAMIDE 10 MG INJ IV SCH ×3 (08:43→21:21)
[2018-07-31] MEDS: MULTIVITAMINS THERAPEUTIC TAB GTB SCH (08:43)
[2018-07-31] MEDS: BISACODYL 10 MG SUPP PR SCH (08:43)
[2018-07-31] MEDS: ZINC SULFATE 220 MG CAP GTB SCH (08:43)
[2018-07-31] MEDS: LUBIPROSTONE 24 MCG CAP PO SCH ×2 (08:43→21:22)
[2018-07-31] MEDS: MUPIROCIN 2% 22 GM OINT TOP SCH ×2 (08:46→21:22)
[2018-07-31] MEDS: QUETIAPINE 25 MG TAB GTB SCH ×2 (08:47→21:21)
[2018-07-31] MEDS: DAKINS 0.0125%(1/40) 473 ML SOLUTION TP SCH ×2 (08:48→21:22)
[2018-07-31] MEDS: BALSAM PERU/CASTOR OIL 60 GM TUBE TOP SCH ×2 (08:48→21:22)
[2018-07-31] MEDS ORDERED: LORAZEPAM 2 MG INJ IV ONE (09:30)
[2018-07-31] MEDS: DEXTROSE 5% 1,000 ML IV SCH (10:41)
--- NOTE | 2018-07-31 13:19 | CONS ---
Assessment/Plan Assessment/Plan Hospital Course (Demo Recall) 42 year old paraplegic male presents from SNF for sepsis secondary to pnuemonia and UTI was found to ileus vs SBO on KUB with one episode of coffee ground vomit. 1. Ileus vs SBO -resolved 2. Anemia, acute on chronic -neg FOB 3. Acute on chronic renal failure -h/o rt nephrectomy -improving 4. Sepsis secondary to pnuemonia and UTI 5. Pneumonia 6. UTI -Acinetobacter Baumannii 7. 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 Vent dependent respiratory failure 9. Dysphagia, s/p g tube 10. Bipolar disorder Plan Dulcolax suppository Dr Gil to evaluate trach stoma today Continue Pepcid and reglan Continue tube feeds Amitiza 24 mcg BID Pt examined and plan of care discussed with Dr. Borjas Consultation Date/Type/Reason Admit Date/Time Jul 18, 2018 at 13:59 Initial Consult Date 07/18/18 Requesting Provider: JOSÉ ANTONIO MIRZA MD Date/Time of Note DATE: 07/31/18 TIME: 13:16 24 HR Interval Summary Free Text/Dictation pt has been tachycardic, losing air from trach stoma site. No bm in 2 days. Denies abd pain. Exam/Review of Systems Exam Vitals Vital Signs Date Temp Pulse Resp B/P (MAP) Pulse Ox O2 O2 Flow FiO2 Time Delivery Rate 07/31/18 98.4 108 20 138/97 99 12:07 (111) 07/31/18 40 06:03 07/30/18 Mechanical 00:17 Ventilator Intake and Output 07/30/18 07/30/18 07/31/18 1515:00 23:00 07:00 IntakeIntake Total 330 ml OutputOutput Total 1000 ml 600 ml BalanceBalance -1000 ml -270 ml Constitutional: alert, oriented Psych: no complaints Eyes: nl sclera, PERRL Gastrointestinal: soft, non-tender Neurological: nl mental status Results Result Diagram: 07/31/18 0941 07/31/18 0941 Results 24hrs Laboratory Tests Test 07/31/18 09:41 White Blood Count 5.9 # Red Blood Count 3.55 L Hemoglobin 9.9 L Hematocrit 35.0 L Mean Corpuscular Volume 98.6 Mean Corpuscular Hemoglobin 27.9 L Mean Corpuscular Hemoglobin Concent 28.3 L Red Cell Distribution Width 18.7 H Platelet Count 164 Mean Platelet Volume 12.2 H Immature Granulocytes % 0.300 Neutrophils % 83.6 H Lymphocytes % 7.6 L Monocytes % 7.3 Eosinophils % 1.0 Basophils % 0.2 Nucleated Red Blood Cells % 0.0 Immature Granulocytes # 0.020 Neutrophils # 4.9 Lymphocytes # 0.5 L Monocytes # 0.4 Eosinophils # 0.1 Basophils # 0.0 Nucleated Red Blood Cells # 0.0 Sodium Level 156 H Potassium Level 4.1 Chloride Level 121 H Carbon Dioxide Level 22 Anion Gap 13 Blood Urea Nitrogen 40 H Creatinine 1.54 H Est Glomerular Filtrat Rate mL/min 50 L Glucose Level 149 Calcium Level 9.3 Medications Medication Current Medications Bisacodyl (Dulcolax Supp) 10 mg DAILY [place] Last administered on 07/31/18 08:43; Admin Dose 10 MG; Start 07/19/18 at 09:00 Multivitamins Therapeutic (Theragran) 1 tab DAILY GTB Last administered on 07/31/18 08:43; Admin Dose 1 TAB; Start 07/19/18 at 09:00 Zinc Sulfate (Zinc Sulfate) 220 mg DAILY GTB Last administered on 07/31/18 08:43; Admin Dose 220 MG; Start 07/19/18 at 09:00 IV Flush (NS 3 ml) 3 ml PER PROTOCOL IV ; Start 07/18/18 at 18:30 Ondansetron HCl (Zofran Inj) 4 mg Q6H PRN IV NAUSEA AND/OR VOMITING Last administered on 07/23/18 21:38; Admin Dose 4 MG; Start 07/18/18 at 18:30 Albuterol (Proventil 0.083% (Neb)) 2.5 mg Q2H RESP THERAPY PRN NEB SHORTNESS OF BREATH Last administered on 07/31/18 08:28; Admin Dose 2.5 MG; Start 07/18/18 at 18:30 Ipratropium [place] (Atrovent 0.02% (Neb)) 0.5 mg Q2H RESP THERAPY PRN NEB SHORTNESS OF BREATH Last administered on 07/31/18 08:28; Admin Dose 0.5 MG; Start 07/18/18 at 18:30 Hydromorphone HCl (Dilaudid) 0.5 mg Q4H PRN IV PAIN LEVEL 7-10 Last administered on 07/31/18 09:02; Admin Dose 0.5 MG; Start 07/18/18 at 18:30 Acetaminophen (Tylenol Liquid) 650 mg Q6H PRN GTB PAIN LEVEL 1-3 OR FEVER Last administered on 07/24/18 12:05; Admin Dose 650 MG; Start 07/19/18 at 10:30 Acetaminophen/ Hydrocodone Bitart ([place] (5/325)) 1 tab Q6H PRN GTB PAIN LEVEL 4-6 Last administered on 07/31/18 12:42; Admin Dose 1 TAB; Start 07/19/18 at 12:30 Docusate Sodium (Colace Liquid Cup) 100 mg Q12 PRN GTB CONSTIPATION Last administered on 07/27/18 09:25; Admin Dose 100 MG; Start 07/19/18 at 08:00 Docusate Sodium (Colace Liquid Cup) 100 mg QHS GTB Last administered on 07/30/18 21:29; Admin Dose 100 MG; Start 07/19/18 at 21:00 IV Flush (NS 10 ml) 10 ml PRN PRN IV FLUSH LINE; Start 07/19/18 at 18:30 Levetiracetam (Keppra Liquid) 500 mg Q12 GTB Last administered on 07/31/18 08:42; Admin Dose 500 MG; Start 07/20/18 at 21:00 Mupirocin (Bactroban) 1 applic BID TOP Last administered on 07/31/18 08:46; Admin Dose 1 APPLIC; Start 07/21/18 at 21:00 Sodium Hypochlorite (Dakins Diluted ()) 1 applic BID TP Last administered on 07/31/18 08:48; Admin Dose 1 APPLIC; Start 07/22/18 at 09:00 Collagenase (Santyl) 1 applic BID TOP Last administered on 07/31/18 08:43; Admin Dose 1 APPLIC; Start 07/22/18 at 09:00 Famotidine (Pepcid Iv) 20 mg BID IV Last administered on 07/31/18 08:43; Admin Dose 20 MG; Start 07/23/18 at 21:00 Epoetin Prince-epbx (Retacrit (Non-Esrd)) 10,000 unit MoWeFr@1700 SC Last administered on 07/30/18at 17:16; Admin Dose 10,000 UNIT; Start 07/23/18 at 18:30 Norepinephrine 250 ml @ 1.875 mls/ hr TITRATE IV ; Start 07/23/18 at 17:30 Metoclopramide HCl (Reglan) 5 mg TID IV Last administered on 07/31/18 12:41; Admin Dose 5 MG; Start 07/24/18 at 09:00 Quetiapine Fumarate (Seroquel) 75 mg BID GTB Last administered on 07/31/18 08:47; Admin Dose 75 MG; Start 07/29/18 at 21:00 Lubiprostone (Amitiza) 24 mcg BID PO Last administered on 07/31/18 08:43; Admin Dose 24 MCG; Start 07/30/18 at 21:00 Dextrose 1,000 ml @ 60 mls/hr [id number] IV Last administered on 07/31/18 10:41; Admin Dose 60 MLS/HR; Start 07/30/18 at 17:30; Stop 08/01/18 at 02:49 ISIAH SEYMOUR Jul 31, 2018 13:19
[2018-07-31] MEDS ORDERED: BISACODYL 10 MG SUPP PR PRN (13:30)
--- NOTE | 2018-07-31 14:09 | CONS ---
Assessment/Plan Assessment/Plan Assessment/Plan (Daily) 1. Acute kidney injury on CKD IV due to severe prerenal azotemia 2. Septic shock s/p levophed in ICU 3. PNA concerned about HCAP 4. UTI with Urine Cx growing Acinetobacter 5. 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 Ventilator dependant respiratory failure s/p Tracheostomy 7. S/p G tube placement 8. 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 H/o Right nephrectomy with left Nephrolithiasis 10 .H/o Bipolar disorder 12. Severe Anemia possibly due to Combination of Anemia of CKD + acute blood loss anemia s/p PRBC transfusion during this admission Plan: BUN/Cr 40/1.54, Na 156, other electrolytes stable - on IVF D5W at 60 cc/hr - will add free water 200 cc Q 4 hr x 48 hr through G tube s/p PRBC transfusion during this admission, continue Epogen 24537 units SQ MWF s/p IV abx for UTI, now off antibiotic, renally dose all medications and monitor electrolytes, replace as needed We will continue to follow up Consultation Date/Type/Reason Admit Date/Time Jul 18, 2018 at 13:59 Initial Consult Date 07/18/18 Type of Consult NEPHROLOGY Requesting Provider: JOSÉ ANTONIO MIRZA MD Date/Time of Note DATE: 07/31/18 TIME: 14:09 24 HR Interval Summary Free Text/Dictation BUN/Cr 40/1.54, Na 156, other electrolytes stable Exam/Review of Systems Exam Vitals Vital Signs Date Temp Pulse Resp B/P (MAP) Pulse Ox O2 O2 Flow FiO2 Time Delivery Rate 07/31/18 98.4 108 20 138/97 99 12:07 (111) 07/31/18 40 07:45 07/30/18 Mechanical 00:17 Ventilator Intake and Output 07/30/18 07/30/18 07/31/18 1515:00 23:00 07:00 IntakeIntake Total 330 ml OutputOutput Total 1000 ml 600 ml BalanceBalance -1000 ml -270 ml Exam Constitutional: non-verbal, awake, alert, no acute distress Head: normocephalic ENMT: other (+ tracheostomy ) Neck: supple, no JVD Respiratory: diminished breath sounds, other (Bilateral coarse BS +) Gastrointestinal: soft, non-tender Musculoskeletal: other (Paraplegia ) Neurological: alert, awake, Results Result Diagram: 07/31/18 0941 07/31/18 0941 Results 24hrs Laboratory Tests Test 07/31/18 09:41 White Blood Count 5.9 # Red Blood Count 3.55 L Hemoglobin 9.9 L Hematocrit 35.0 L Mean Corpuscular Volume 98.6 Mean Corpuscular Hemoglobin 27.9 L Mean Corpuscular Hemoglobin Concent 28.3 L Red Cell Distribution Width 18.7 H Platelet Count 164 Mean Platelet Volume 12.2 H Immature Granulocytes % 0.300 Neutrophils % 83.6 H Lymphocytes % 7.6 L Monocytes % 7.3 Eosinophils % 1.0 Basophils % 0.2 Nucleated Red Blood Cells % 0.0 Immature Granulocytes # 0.020 Neutrophils # 4.9 Lymphocytes # 0.5 L Monocytes # 0.4 Eosinophils # 0.1 Basophils # 0.0 Nucleated Red Blood Cells # 0.0 Sodium Level 156 H Potassium Level 4.1 Chloride Level 121 H Carbon Dioxide Level 22 Anion Gap 13 Blood Urea Nitrogen 40 H Creatinine 1.54 H Est Glomerular Filtrat Rate mL/min 50 L Glucose Level 149 Calcium Level 9.3 Medications Medication Current Medications Bisacodyl (Dulcolax Supp) 10 mg DAILY [place] Last administered on 07/31/18 08:43; Admin Dose 10 MG; Start 07/19/18 at 09:00 Multivitamins Therapeutic (Theragran) 1 tab DAILY GTB Last administered on 07/31/18 08:43; Admin Dose 1 TAB; Start 07/19/18 at 09:00 Zinc Sulfate (Zinc Sulfate) 220 mg DAILY GTB Last administered on 07/31/18 08:43; Admin Dose 220 MG; Start 07/19/18 at 09:00 IV Flush (NS 3 ml) 3 ml PER PROTOCOL IV ; Start 07/18/18 at 18:30 Ondansetron HCl (Zofran Inj) 4 mg Q6H PRN IV NAUSEA AND/OR VOMITING Last administered on 07/23/18 21:38; Admin Dose 4 MG; Start 07/18/18 at 18:30 Albuterol (Proventil 0.083% (Neb)) 2.5 mg Q2H RESP THERAPY PRN NEB SHORTNESS OF BREATH Last administered on 07/31/18 08:28; Admin Dose 2.5 MG; Start 07/18/18 at 18:30 Ipratropium [place] (Atrovent 0.02% (Neb)) 0.5 mg Q2H RESP THERAPY PRN NEB SHORTNESS OF BREATH Last administered on 07/31/18 08:28; Admin Dose 0.5 MG; Start 07/18/18 at 18:30 Hydromorphone HCl (Dilaudid) 0.5 mg Q4H PRN IV PAIN LEVEL 7-10 Last admi nistered on 07/31/18 09:02; Admin Dose 0.5 MG; Start 07/18/18 at 18:30 Acetaminophen (Tylenol Liquid) 650 mg Q6H PRN GTB PAIN LEVEL 1-3 OR FEVER Last administered on 07/24/18 12:05; Admin Dose 650 MG; Start 07/19/18 at 10:30 Acetaminophen/ Hydrocodone Bitart ([place] (5/325)) 1 tab Q6H PRN GTB PAIN LEVEL 4-6 Last administered on 07/31/18 12:42; Admin Dose 1 TAB; Start 07/19/18 at 12:30 Docusate Sodium (Colace Liquid Cup) 100 mg Q12 PRN GTB CONSTIPATION Last administered on 07/27/18 09:25; Admin Dose 100 MG; Start 07/19/18 at 08:00 Docusate Sodium (Colace Liquid Cup) 100 mg QHS GTB Last administered on 07/30/18 21:29; Admin Dose 100 MG; Start 07/19/18 at 21:00 IV Flush (NS 10 ml) 10 ml PRN PRN IV FLUSH LINE; Start 07/19/18 at 18:30 Levetiracetam (Keppra Liquid) 500 mg Q12 GTB Last administered on 07/31/18 08:42; Admin Dose 500 MG; Start 07/20/18 at 21:00 Mupirocin (Bactroban) 1 applic BID TOP Last administered on 07/31/18 08:46; Admin Dose 1 APPLIC; Start 07/21/18 at 21:00 Sodium Hypochlorite (Dakins Diluted (40)) 1 applic BID TP Last administered on 07/31/18 08:48; Admin Dose 1 APPLIC; Start 07/22/18 at 09:00 Collagenase (Santyl) 1 applic BID TOP Last administered on 07/31/18 08:43; Admin Dose 1 APPLIC; Start 07/22/18 at 09:00 Famotidine (Pepcid Iv) 20 mg BID IV Last administered on 07/31/18 08:43; Admin Dose 20 MG; Start 07/23/18 at 21:00 Epoetin [place]-epbx (Retacrit (Non-Esrd)) 10,000 unit MoWeFr@1700 SC Last administered on 07/30/18 17:16; Admin Dose 10,000 UNIT; Start 07/23/18 at 18:30 Norepinephrine 250 ml @ 1.875 mls/ hr TITRATE IV ; Start 07/23/18 at 17:30 Metoclopramide HCl (Reglan) 5 mg TID IV Last administered on 07/31/18 12:41; Admin Dose 5 MG; Start 07/24/18 at 09:00 Quetiapine Fumarate (Seroquel) 75 mg BID GTB Last administered on 07/31/18 08:47; Admin Dose 75 MG; Start 07/29/18 at 21:00 Lubiprostone (Amitiza) 24 mcg BID PO Last administered on 07/31/18 08:43; Admin Dose 24 MCG; Start 07/30/18 at 21:00 Dextrose 1,000 ml @ 60 mls/hr [id number] IV Last administered on 07/31/18 10:41; Admin Dose 60 MLS/HR; Start 07/30/18 at 17:30; Stop 08/01/18 at 02:49 Bisacodyl (Dulcolax Supp) 10 mg DAILY PRN CO CONSTIPATION; Start 07/31/18 at 13:30 TIARA CISNEROS MD Jul 31, 2018 14:09
--- NOTE | 2018-07-31 14:34 | CONS ---
Assessment/Plan Assessment/Plan Hospital Course (Demo Recall) Alert, looks comfortable,no fevers Antimicrobials: none Microbiology: Urine culture grew Acinetobacter susceptible to gentamicin tobramycin and Bactrim, blood cultures negative===> treated Allergies: Tetracyclines Indwelling: Trach, PEG, PICC line, suprapubic catheter Physical examination: Chronically ill-appearing wasted middle-aged man who is awake in no distress. Head atraumatic normocephalic sclera nonicteric vehicle mucosa dry neck is supple tracheostomy present chest rise symmetrical breath sounds diminished the bases. Heart: S1-S2. Abdomen soft bowel sounds present. Extremities wasted contractured Assessment: 1. Status post septic shock 2. Recurrent UTI/acute pyelonephritis, treated 3. Acute on chronic respiratory failure 4. Acute on chronic kidney disease 5. Incomplete quadriplegia 6. Anemia and thrombocytopenia 7. History of left breast nephrectomy 8. Multiple chronic decubitus ulcers 9. Diarrhea, rule out C. difficile 10. MRSA colonization of the naris Plan: Remains stable, completed antibiotics, will monitor closely Consultation Date/Type/Reason Admit Date/Time Jul 18, 2018 at 13:59 Initial Consult Date 07/18/18 Type of Consult id Requesting Provider: JOSÉ ANTONIO MIRZA MD Date/Time of Note DATE: 07/31/18 TIME: 14:33 Exam/Review of Systems Exam Vitals Vital Signs Date Temp Pulse Resp B/P (MAP) Pulse Ox O2 O2 Flow FiO2 Time Delivery Rate 07/31/18 98.4 108 20 138/97 99 12:07 (111) 07/31/18 40 07:45 07/30/18 Mechanical 00:17 Ventilator Intake and Output 07/30/18 07/30/18 07/31/18 1515:00 23:00 07:00 IntakeIntake Total 330 ml OutputOutput Total 1000 ml 600 ml BalanceBalance -1000 ml -270 ml Results Result Diagram: 07/31/18 0941 07/31/18 0941 Results 24hrs Laboratory Tests Test 07/31/18 09:41 White Blood Count 5.9 # Red Blood Count 3.55 L Hemoglobin 9.9 L Hematocrit 35.0 L Mean Corpuscular Volume 98.6 Mean Corpuscular Hemoglobin 27.9 L Mean Corpuscular Hemoglobin Concent 28.3 L Red Cell Distribution Width 18.7 H Platelet Count 164 Mean Platelet Volume 12.2 H Immature Granulocytes % 0.300 Neutrophils % 83.6 H Lymphocytes % 7.6 L Monocytes % 7.3 Eosinophils % 1.0 Basophils % 0.2 Nucleated Red Blood Cells % 0.0 Immature Granulocytes # 0.020 Neutrophils # 4.9 Lymphocytes # 0.5 L Monocytes # 0.4 Eosinophils # 0.1 Basophils # 0.0 Nucleated Red Blood Cells # 0.0 Sodium Level 156 H Potassium Level 4.1 Chloride Level 121 H Carbon Dioxide Level 22 Anion Gap 13 Blood Urea Nitrogen 40 H Creatinine 1.54 H Est Glomerular Filtrat Rate mL/min 50 L Glucose Level 149 Calcium Level 9.3 Medications Medication Current Medications Bisacodyl (Dulcolax Supp) 10 mg DAILY [place] Last administered on 07/31/18 08:43; Admin Dose 10 MG; Start 07/19/18 at 09:00 Multivitamins Therapeutic (Theragran) 1 tab DAILY GTB Last administered on 07/31/18 08:43; Admin Dose 1 TAB; Start 07/19/18 at 09:00 Zinc Sulfate (Zinc Sulfate) 220 mg DAILY GTB Last administered on 07/31/18 08:43; Admin Dose 220 MG; Start 07/19/18 at 09:00 IV Flush (NS 3 ml) 3 ml PER PROTOCOL IV ; Start 07/18/18 at 18:30 Ondansetron HCl (Zofran Inj) 4 mg Q6H PRN IV NAUSEA AND/OR VOMITING Last administered on 07/23/18 21:38; Admin Dose 4 MG; Start 07/18/18 at 18:30 Albuterol (Proventil 0.083% (Neb)) 2.5 mg Q2H RESP THERAPY PRN NEB SHORTNESS OF BREATH Last administered on 07/31/18 08:28; Admin Dose 2.5 MG; Start 07/18/18 at 18:30 Ipratropium [place] (Atrovent 0.02% (Neb)) 0.5 mg Q2H RESP THERAPY PRN NEB SHORTNESS OF BREATH Last administered on 07/31/18 08:28; Admin Dose 0.5 MG; Start 07/18/18 at 18:30 Hydromorphone HCl (Dilaudid) 0.5 mg Q4H PRN IV PAIN LEVEL 7-10 Last administered on 07/31/18 09:02; Admin Dose 0.5 MG; Start 07/18/18 at 18:30 Acetaminophen (Tylenol Liquid) 650 mg Q6H PRN GTB PAIN LEVEL 1-3 OR FEVER Last administered on 07/24/18 12:05; Admin Dose 650 MG; Start 07/19/18 at 10:30 Acetaminophen/ Hydrocodone Bitart ([place] (5/325)) 1 tab Q6H PRN GTB PAIN LEVEL 4-6 Last administered on 07/31/18 12:42; Admin Dose 1 TAB; Start 07/19/18 at 12:30 Docusate Sodium (Colace Liquid Cup) 100 mg Q12 PRN GTB CONSTIPATION Last administered on 07/27/18 09:25; Admin Dose 100 MG; Start 07/19/18 at 08:00 Docusate Sodium (Colace Liquid Cup) 100 mg QHS GTB Last administered on 07/30/18 21:29; Admin Dose 100 MG; Start 07/19/18 at 21:00 IV Flush (NS 10 ml) 10 ml PRN PRN IV FLUSH LINE; Start 07/19/18 at 18:30 Levetiracetam (Keppra Liquid) 500 mg Q12 GTB Last administered on 07/31/18 08:42; Admin Dose 500 MG; Start 07/20/18 at 21:00 Mupirocin (Bactroban) 1 applic BID TOP Last administered on 07/31/18 08:46; Admin Dose 1 APPLIC; Start 07/21/18 at 21:00 Sodium Hypochlorite (Dakins Diluted (40)) 1 applic BID TP Last administered on 07/31/18 08:48; Admin Dose 1 APPLIC; Start 07/22/18 at 09:00 Collagenase (Santyl) 1 applic BID TOP Last administered on 07/31/18 08:43; Admin Dose 1 APPLIC; Start 07/22/18 at 09:00 Famotidine (Pepcid Iv) 20 mg BID IV Last administered on 07/31/18 08:43; Admin Dose 20 MG; Start 07/23/18 at 21:00 Epoetin [place]-epbx (Retacrit (Non-Esrd)) 10,000 unit MoWeFr@1700 SC Last administered on 6/24/19at 17:16; Admin Dose 10,000 UNIT; Start 07/23/18 at 18:30 Norepinephrine 250 ml @ 1.875 mls/ hr TITRATE IV ; Start 07/23/18 at 17:30 Metoclopramide HCl (Reglan) 5 mg TID IV Last administered on 07/31/18at 12:41; Admin Dose 5 MG; Start 07/24/18 at 09:00 Quetiapine Fumarate (Seroquel) 75 mg BID GTB Last administered on 07/31/18at 08:47; Admin Dose 75 MG; Start 07/29/18 at 21:00 Lubiprostone (Amitiza) 24 mcg BID PO Last administered on 07/31/18at 08:43; Admin Dose 24 MCG; Start 07/30/18 at 21:00 Dextrose 1,000 ml @ 60 mls/hr [id number] IV Last administered on 07/31/18at 10:41; Admin Dose 60 MLS/HR; Start 07/30/18 at 17:30; Stop 08/01/18 at 02:49 Bisacodyl (Dulcolax Supp) 10 mg DAILY PRN [place] CONSTIPATION; Start 07/31/18 at 13:30 REGINALDO CHERY NP Jul 31, 2018 14:34
--- NOTE | 2018-07-31 15:48 | PN ---
DATE: 07/31/2018 SUBJECTIVE: The patient is on long-term ventilator support. His tracheostomy opening appears to be large, maybe a small opening beneath the main opening. Earlier in the morning he was having problems with ventilation. Right now, he seems to be getting en ough volume and his saturation is satisfactory in the mid to lower upper 90s, around 95% to 96%. PHYSICAL EXAMINATION: VITAL SIGNS: Show temperature 98.4, blood pressure 138/97, pulse rate 108, respirations 20, pulse ox imetry 99% saturation. NECK: Tracheostomy opening appears to be big for the tracheostomy size. Secretions are minimal to m oderate and clear. No gross bleeding seen. HEART: Sinus tachycardia. CHEST: Breath sounds are heard bilaterally, diminished in the lower lung tierney with a few intermitt ent rales and rhonchi. ABDOMEN: Soft, no distention seen, tolerating G-tube feedings. Bowel sounds are normally present. EXTREMITIES: Show no edema. He is paraplegic. LABORATORY DATA: Show glucose 149, sodium 156, potassium 4.1, BUN 40, creatinine 1.5. The CBC shows a WBC 5900, hemoglobin 9.9, hematocrit 35, platelets within normal limits. IMPRESSION: 1. Chronic ventilator dependent respiratory failure. 2. Resolving sepsis. 3. Chronic kidney disease with acute kidney injury, improving. 4. Chronic anemia. 5. History of nephrolithiasis. 6. Paraplegia. 7. Spinal cord injury in the past. 8. History of bipolar disorder. PLAN: 1. A thoracic surgical consultation has been requested to suture the tracheostomy opening as the ope shona seems to be quite large. 2. Continue long-term ventilator support. 3. Continue antibiotics as per the infectious disease wine consultant. 4. Continue bronchodilator inhalation therapy to clear the secretions and improve the bronchial hygi sp. 5. Continue hydration. 6. Continue supportive therapy. I left a message in Dr. Gil's voicemail. The nursing staff will follow through. Dictated By: HUMBERTO PEREZ MD SR/NTS Conf#: [id number] DID#: [id number] CC: JOSÉ ANTONIO MIRZA MD;*EndCC*
--- NOTE | 2018-07-31 16:42 | PN ---
Date/Time of Note Date/Time of Note DATE: 07/31/18 TIME: 16:41 Assessment/Plan VTE Prophylaxis Risk score (from Ns)>0 risk: 3 SCD applied (from Ns): Yes Pharmacological prophylaxis: heparin Lines/Catheters IV Catheter Type (from Nrsg): PICC Line Central line still needed: Yes Assessment/Plan Hospital Course Patient has not issues with tracheal stoma with ear leaking, pending evaluation by vascular surgery. Assessment/Plan - Anemia multifactorial, chronic disease and blood loss. S/p blood transfusion, continue Epogen. - Possible GI bleed. Dr. Borjas is following in gastroenterology consultation. - Ileus versus small bowel obstruction. - Sepsis with shock injury to possible healthcare acquired pneumonia and UTI, continue abx per ID. Dr. Maciel is following in infection disease consultation. - Acute on chronic renal failure. Continue to monitor BUN and creatinine. Dr. Barker is following in nephrology consultation. - Ventilator dependent respiratory failure, continue pulmonary toilet and bronchodilators. Dr Ames is following in pulmonology consultation. - Neurogenic bladder with suprapubic catheter. - Dysphagia with gastrostomy tube. - Multiple decubitus ulcers present on admission. - Cervical spine injury with paraplegia. - Bipolar disorder with psychosis. - Hx of right nephrectomy - Hx of left renal nephrolithiasis, hx of lithotripsy with insertion and subsequent removal of ureteral JJ stent. Further recommendations based on clinical course. Plan of care discussed with Dr. Barreto. Result Diagram: 07/31/18 0941 07/31/18 0941 Results 24hrs Laboratory Tests Test 07/31/18 09:41 White Blood Count 5.9 # Red Blood Count 3.55 L Hemoglobin 9.9 L Hematocrit 35.0 L Mean Corpuscular Volume 98.6 Mean Corpuscular Hemoglobin 27.9 L Mean Corpuscular Hemoglobin Concent 28.3 L Red Cell Distribution Width 18.7 H Platelet Count 164 Mean Platelet Volume 12.2 H Immature Granulocytes % 0.300 Neutrophils % 83.6 H Lymphocytes % 7.6 L Monocytes % 7.3 Eosinophils % 1.0 Basophils % 0.2 Nucleated Red Blood Cells % 0.0 Immature Granulocytes # 0.020 Neutrophils # 4.9 Lymphocytes # 0.5 L Monocytes # 0.4 Eosinophils # 0.1 Basophils # 0.0 Nucleated Red Blood Cells # 0.0 Sodium Level 156 H Potassium Level 4.1 Chloride Level 121 H Carbon Dioxide Level 22 Anion Gap 13 Blood Urea Nitrogen 40 H Creatinine 1.54 H Est Glomerular Filtrat Rate mL/min 50 L Glucose Level 149 Calcium Level 9.3 Exam/Review of Systems Exam Vitals Vital Signs Date Temp Pulse Resp B/P (MAP) Pulse Ox O2 O2 Flow FiO2 Time Delivery Rate 07/31/18 98.0 110 18 135/90 98 16:21 (105) 07/31/18 40 15:05 07/30/18 Mechanical 00:17 Ventilator Intake and Output 07/30/18 07/30/18 07/31/18 1515:00 23:00 07:00 IntakeIntake Total 330 ml OutputOutput Total 1000 ml 600 ml BalanceBalance -1000 ml -270 ml Exam Constitutional: alert, awake Neck: supple, other (Tracheostomy) Respiratory: diminished breath sounds Cardiovascular: regular rate and rhythm Gastrointestinal: soft, non-tender, other (G-tube) Genitourinary - Male: other (Suprapubic catheter) Extremities: normal pulses, other (Contracted) Neurological: other (Paraplegia) Skin: other (Multiple wounds) Results Results 24hrs Laboratory Tests Test 07/31/18 09:41 White Blood Count 5.9 # Red Blood Count 3.55 L Hemoglobin 9.9 L Hematocrit 35.0 L Mean Corpuscular Volume 98.6 Mean Corpuscular Hemoglobin 27.9 L Mean Corpuscular Hemoglobin Concent 28.3 L Red Cell Distribution Width 18.7 H Platelet Count 164 Mean Platelet Volume 12.2 H Immature Granulocytes % 0.300 Neutrophils % 83.6 H Lymphocytes % 7.6 L Monocytes % 7.3 Eosinophils % 1.0 Basophils % 0.2 Nucleated Red Blood Cells % 0.0 Immature Granulocytes # 0.020 Neutrophils # 4.9 Lymphocytes # 0.5 L Monocytes # 0.4 Eosinophils # 0.1 Basophils # 0.0 Nucleated Red Blood Cells # 0.0 Sodium Level 156 H Potassium Level 4.1 Chloride Level 121 H Carbon Dioxide Level 22 Anion Gap 13 Blood Urea Nitrogen 40 H Creatinine 1.54 H Est Glomerular Filtrat Rate mL/min 50 L Glucose Level 149 Calcium Level 9.3 Medications Medication Current Medications Bisacodyl (Dulcolax Supp) 10 mg DAILY [place] Last administered on 07/31/18at 08:43; Admin Dose 10 MG; Start 07/19/18 at 09:00 Multivitamins Therapeutic (Theragran) 1 tab DAILY GTB Last administered on 07/31/18 08:43; Admin Dose 1 TAB; Start 07/19/18 at 09:00 Zinc Sulfate (Zinc Sulfate) 220 mg DAILY GTB Last administered on 07/31/18 08:43; Admin Dose 220 MG; Start 07/19/18 at 09:00 IV Flush (NS 3 ml) 3 ml PER PROTOCOL IV ; Start 07/18/18 at 18:30 Ondansetron HCl (Zofran Inj) 4 mg Q6H PRN IV NAUSEA AND/OR VOMITING Last administered on 07/23/18 21:38; Admin Dose 4 MG; Start 07/18/18 at 18:30 Albuterol (Proventil 0.083% (Neb)) 2.5 mg Q2H RESP THERAPY PRN NEB SHORTNESS OF BREATH Last administered on 07/31/18 08:28; Admin Dose 2.5 MG; Start 07/18/18 at 18:30 Ipratropium [place] (Atrovent 0.02% (Neb)) 0.5 mg Q2H RESP THERAPY PRN NEB SHORTNESS OF BREATH Last administered on 07/31/18 08:28; Admin Dose 0.5 MG; Start 07/18/18 at 18:30 Hydromorphone HCl (Dilaudid) 0.5 mg Q4H PRN IV PAIN LEVEL 7-10 Last administered on 07/31/18 09:02; Admin Dose 0.5 MG; Start 07/18/18 at 18:30 Acetaminophen (Tylenol Liquid) 650 mg Q6H PRN GTB PAIN LEVEL 1-3 OR FEVER Last administered on 07/24/18 12:05; Admin Dose 650 MG; Start 07/19/18 at 10:30 Acetaminophen/ Hydrocodone Bitart ([place] (5/325)) 1 tab Q6H PRN GTB PAIN LEVEL 4-6 Last administered on 07/31/18 12:42; Admin Dose 1 TAB; Start 07/19/18 at 12:30 Docusate Sodium (Colace Liquid Cup) 100 mg Q12 PRN GTB CONSTIPATION Last administered on 07/27/18 09:25; Admin Dose 100 MG; Start 07/19/18 at 08:00 Docusate Sodium (Colace Liquid Cup) 100 mg QHS GTB Last administered on 07/30/18 21:29; Admin Dose 100 MG; Start 07/19/18 at 21:00 IV Flush (NS 10 ml) 10 ml PRN PRN IV FLUSH LINE; Start 07/19/18 at 18:30 Levetiracetam (Keppra Liquid) 500 mg Q12 GTB Last administered on 07/31/18 08:42; Admin Dose 500 MG; Start 07/20/18 at 21:00 Mupirocin (Bactroban) 1 applic BID TOP Last administered on 07/31/18 08:46; Admin Dose 1 APPLIC; Start 07/21/18 at 21:00 Sodium Hypochlorite (Dakins Diluted ()) 1 applic BID TP Last administered on 07/31/18 08:48; Admin Dose 1 APPLIC; Start 07/22/18 at 09:00 Collagenase (Santyl) 1 applic BID TOP Last administered on 07/31/18 08:43; Admin Dose 1 APPLIC; Start 07/22/18 at 09:00 Famotidine (Pepcid Iv) 20 mg BID IV Last administered on 07/31/18 08:43; Admin Dose 20 MG; Start 07/23/18 at 21:00 Epoetin Prince-epbx (Retacrit (Non-Esrd)) 10,000 unit MoWeFr@1700 SC Last administered on 07/30/18 17:16; Admin Dose 10,000 UNIT; Start 07/23/18 at 18:30 Norepinephrine 250 ml @ 1.875 mls/ hr TITRATE IV ; Start 07/23/18 at 17:30 Metoclopramide HCl (Reglan) 5 mg TID IV Last administered on 07/31/18 12:41; Admin Dose 5 MG; Start 07/24/18 at 09:00 Quetiapine Fumarate (Seroquel) 75 mg BID GTB Last administered on 07/31/18 08:47; Admin Dose 75 MG; Start 07/29/18 at 21:00 Lubiprostone (Amitiza) 24 mcg BID PO Last administered on 07/31/18 08:43; Admin Dose 24 MCG; Start 07/30/18 at 21:00 Dextrose 1,000 ml @ 60 mls/hr [id number] IV Last administered on 07/31/18at 10:41; Admin Dose 60 MLS/HR; Start 07/30/18 at 17:30; Stop 08/01/18 at 02:49 Bisacodyl (Dulcolax Supp) 10 mg DAILY PRN [place] CONSTIPATION; Start 07/31/18 at 13:30 AISSATOU DUNCAN Jul 31, 2018 16:42
[2018-07-31] MEDS: DOCUSATE SODIUM 10 MG/ML (10ML CUP) GTB SCH (21:21)
[2018-08-01] VITALS (24 sets, daily range): BP systolic 99–148; BP diastolic 65–110; PULSE 106–132; RESP 20–32
[2018-08-01] MEDS: HYDROmorphONE 0.5 MG/0.5 ML SYG IV PRN ×4 (03:55→20:29)
[2018-08-01] MEDS: ALBUTEROL 0.083% (NEB) 2.5 MG/3 ML AMP NEB PRN ×2 (04:44→10:58)
[2018-08-01] MEDS: IPRATROPIUM (NEB) 0.5 MG/2.5 ML AMP NEB PRN (04:44)
[2018-08-01] MEDS: LUBIPROSTONE 24 MCG CAP PO SCH ×2 (08:45→20:27)
[2018-08-01] MEDS: ZINC SULFATE 220 MG CAP GTB SCH (08:46)
[2018-08-01] MEDS: MULTIVITAMINS THERAPEUTIC TAB GTB SCH (08:46)
[2018-08-01] MEDS: QUETIAPINE 25 MG TAB GTB SCH ×2 (08:46→20:27)
[2018-08-01] MEDS: LEVETIRACETAM (100 MG/ML) 5ML CUP GTB SCH ×2 (08:47→20:26)
[2018-08-01] MEDS: METOCLOPRAMIDE 10 MG INJ IV SCH ×3 (08:47→20:26)
[2018-08-01] MEDS: MUPIROCIN 2% 22 GM OINT TOP SCH ×2 (08:48→20:28)
[2018-08-01] MEDS: FAMOTIDINE 20 MG INJ IV SCH ×2 (08:48→20:26)
[2018-08-01] MEDS: BALSAM PERU/CASTOR OIL 60 GM TUBE TOP SCH ×2 (08:48→20:28)
[2018-08-01] MEDS: COLLAGENASE 5 GM (UD JAR) TOP SCH ×2 (08:48→20:26)
[2018-08-01] MEDS: BISACODYL 10 MG SUPP PR SCH (08:49)
[2018-08-01] MEDS: DAKINS 0.0125%(1/40) 473 ML SOLUTION TP SCH ×2 (08:50→20:29)
[2018-08-01] MEDS: HYDROCODONE/APAP (5/325) TAB GTB PRN (09:00)
--- NOTE | 2018-08-01 13:47 | CONS ---
Assessment/Plan Assessment/Plan Assessment/Plan (Daily) 1. Acute kidney injury on CKD IV due to severe prerenal azotemia 2. Septic shock s/p levophed in ICU 3. PNA concerned about HCAP 4. UTI with Urine Cx growing Acinetobacter 5. 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 Ventilator dependant respiratory failure s/p Tracheostomy 7. S/p G tube placement 8. 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 H/o Right nephrectomy with left Nephrolithiasis 10 .H/o Bipolar disorder 12. Severe Anemia possibly due to Combination of Anemia of CKD + acute blood loss anemia s/p PRBC transfusion during this admission Plan: BUN/Cr 40/1.54, Na 156, other electrolytes stable yesterday, no labs today yet - on IVF D5W at 60 cc/hr - continue free water 200 cc Q 4 hr x 48 hr through G tube s/p PRBC transfusion during this admission, continue Epogen 95777 units SQ MWF s/p IV abx for UTI, now off antibiotic, renally dose all medications and monitor electrolytes, replace as needed We will continue to follow up Consultation Date/Type/Reason Admit Date/Time Jul 18, 2018 at 13:59 Initial Consult Date 07/18/18 Type of Consult NEPHROLOGY Requesting Provider: JOSÉ ANTONIO MIRZA MD Date/Time of Note DATE: 08/01/18 TIME: 13:47 Exam/Review of Systems Exam Vitals Vital Signs Date Temp Pulse Resp B/P (MAP) Pulse Ox O2 O2 Flow FiO2 Time Delivery Rate 08/01/18 98.0 131 20 99/65 (76) 93 Mechanical 12:05 Ventilator Trach Collar 08/01/18 40 11:04 Intake and Output 07/31/18 07/31/18 08/01/18 1515:00 23:00 07:00 IntakeIntake Total 660 ml 1130 ml OutputOutput Total 400 ml 1200 ml 1650 ml BalanceBalance -400 ml -540 ml -520 ml Exam Constitutional: non-verbal, awake, alert, no acute distress Head: normocephalic ENMT: other (+ tracheostomy ) Neck: supple, no JVD Respiratory: diminished breath sounds, other (Bilateral coarse BS +) Gastrointestinal: soft, non-tender Musculoskeletal: other (Paraplegia ) Neurological: alert, awake, Results Result Diagram: 07/31/1894007/31/18940 Medications Medication Current Medications Bisacodyl (Dulcolax Supp) 10 mg DAILY [place] Last administered on 08/01/18 08:49; Admin Dose 10 MG; Start 07/19/18 at 09:00 Multivitamins Therapeutic (Theragran) 1 tab DAILY GTB Last administered on 08/01/18 08:46; Admin Dose 1 TAB; Start 07/19/18 at 09:00 Zinc Sulfate (Zinc Sulfate) 220 mg DAILY GTB Last administered on 08/01/18 08:46; Admin Dose 220 MG; Start 07/19/18 at 09:00 IV Flush (NS 3 ml) 3 ml PER PROTOCOL IV ; Start 07/18/18 at 18:30 Ondansetron HCl (Zofran Inj) 4 mg Q6H PRN IV NAUSEA AND/OR VOMITING Last administered on 07/23/18 21:38; Admin Dose 4 MG; Start 07/18/18 at 18:30 Albuterol (Proventil 0.083% (Neb)) 2.5 mg Q2H RESP THERAPY PRN NEB SHORTNESS OF BREATH Last administered on 08/01/18 10:58; Admin Dose 2.5 MG; Start 07/18/18 at 18:30 Ipratropium [place] (Atrovent 0.02% (Neb)) 0.5 mg Q2H RESP THERAPY PRN NEB SHORTNESS OF BREATH Last administered on 08/01/18 04:44; Admin Dose 0.5 MG; Start 07/18/18 at 18:30 Hydromorphone HCl (Dilaudid) 0.5 mg Q4H PRN IV PAIN LEVEL 7-10 Last administered on 08/01/18 11:25; Admin Dose 0.5 MG; Start 07/18/18 at 18:30 Acetaminophen (Tylenol Liquid) 650 mg Q6H PRN GTB PAIN LEVEL 1-3 OR FEVER Last administered on 07/24/18 12:05; Admin Dose 650 MG; Start 07/19/18 at 10:30 Acetaminophen/ Hydrocodone Bitart ([place] (5/325)) 1 tab Q6H PRN GTB PAIN LEVEL 4-6 Last administered on 08/01/18 09:00; Admin Dose 1 TAB; Start 07/19/18 at 12:30 Docusate Sodium (Colace Liquid Cup) 100 mg Q12 PRN GTB CONSTIPATION Last administered on 07/27/18 09:25; Admin Dose 100 MG; Start 07/19/18 at 08:00 Docusate Sodium (Colace Liquid Cup) 100 mg QHS GTB Last administered on 07/31/18 21:21; Admin Dose 100 MG; Start 07/19/18 at 21:00 IV Flush (NS 10 ml) 10 ml PRN PRN IV FLUSH LINE; Start 07/19/18 at 18:30 Levetiracetam (Keppra Liquid) 500 mg Q12 GTB Last administered on 08/01/18 08:47; Admin Dose 500 MG; Start 07/20/18 at 21:00 Mupirocin (Bactroban) 1 applic BID TOP Last administered on 08/01/18 08:48; Admin Dose 1 APPLIC; Start 07/21/18 at 21:00 Sodium Hypochlorite (Dakins Diluted (40)) 1 applic BID TP Last administered on 08/01/18 08:50; Admin Dose 1 APPLIC; Start 07/22/18 at 09:00 Collagenase (Santyl) 1 applic BID TOP Last administered on 08/01/18 08:48; Admin Dose 1 APPLIC; Start 07/22/18 at 09:00 Famotidine (Pepcid Iv) 20 mg BID IV Last administered on 08/01/18 08:48; Admin Dose 20 MG; Start 07/23/18 at 21:00 Epoetin Prince-epbx (Retacrit (Non-Esrd)) 10,000 unit MoWeFr@1700 SC Last administered on 07/30/18 17:16; Admin Dose 10,000 UNIT; Start 07/23/18 at 18:30 Metoclopramide HCl (Reglan) 5 mg TID IV Last administered on 08/01/18 12:46; Admin Dose 5 MG; Start 07/24/18 at 09:00 Quetiapine Fumarate (Seroquel) 75 mg BID GTB Last administered on 08/01/18 08:46; Admin Dose 75 MG; Start 07/29/18 at 21:00 Lubiprostone (Amitiza) 24 mcg BID PO Last administered on 6/26/19at 08:45; Admin Dose 24 MCG; Start 07/30/18 at 21:00 Bisacodyl (Dulcolax Supp) 10 mg DAILY PRN [place] CONSTIPATION; Start 07/31/18 at 13:30 TIARA CISNEROS MD Aug 01, 2018 13:47
--- NOTE | 2018-08-01 15:18 | CONS ---
Assessment/Plan Assessment/Plan Hospital Course (Demo Recall) Alert, looks comfortable, no fevers Antimicrobials: none Microbiology: Urine culture grew Acinetobacter susceptible to gentamicin tobramycin and Bactrim, blood cultures negative===> treated Allergies: Tetracyclines Indwelling: Trach, PEG, PICC line, suprapubic catheter Physical examination: Chronically ill-appearing wasted middle-aged man who is awake in no distress. Head atraumatic normocephalic sclera nonicteric vehicle mucosa dry neck is supple tracheostomy present chest rise symmetrical breath sounds diminished the bases. Heart: S1-S2. Abdomen soft bowel sounds present. Extremities wasted contractured Assessment: 1. Status post septic shock 2. Recurrent UTI/acute pyelonephritis, treated 3. Acute on chronic respiratory failure 4. Acute on chronic kidney disease 5. Incomplete quadriplegia 6. Anemia and thrombocytopenia 7. History of left breast nephrectomy 8. Multiple chronic decubitus ulcers 9. Diarrhea, rule out C. difficile 10. MRSA colonization of the naris Plan: Remains stable, continue observing off antibiotics Consultation Date/Type/Reason Admit Date/Time Jul 18, 2018 at 13:59 Initial Consult Date 07/18/18 Type of Consult id Requesting Provider: JOSÉ ANTONIO MIRZA MD Date/Time of Note DATE: 08/01/18 TIME: 15:17 Exam/Review of Systems Exam Vitals Vital Signs Date Temp Pulse Resp B/P (MAP) Pulse Ox O2 O2 Flow FiO2 Time Delivery Rate 08/01/18 98.0 131 20 99/65 (76) 93 Mechanical 12:05 Ventilator Trach Collar 08/01/18 40 11:04 Intake and Output 07/31/18 07/31/18 08/01/18 1515:00 23:00 07:00 IntakeIntake Total 660 ml 1130 ml OutputOutput Total 400 ml 1200 ml 1650 ml BalanceBalance -400 ml -540 ml -520 ml Results Result Diagram: 07/31/18 0941 07/31/18 09 Medications Medication Current Medications Bisacodyl (Dulcolax Supp) 10 mg DAILY MD Last administered on 08/01/18at 08:49; Admin Dose 10 MG; Start 07/19/18 at 09:00 Multivitamins Therapeutic (Theragran) 1 tab DAILY GTB Last administered on 08/01/18at 08:46; Admin Dose 1 TAB; Start 07/19/18 at 09:00 Zinc Sulfate (Zinc Sulfate) 220 mg DAILY GTB Last administered on 08/01/18 08:46; Admin Dose 220 MG; Start 07/19/18 at 09:00 IV Flush (NS 3 ml) 3 ml PER PROTOCOL IV ; Start 07/18/18 at 18:30 Ondansetron HCl (Zofran Inj) 4 mg Q6H PRN IV NAUSEA AND/OR VOMITING Last administered on 07/23/18 21:38; Admin Dose 4 MG; Start 07/18/18 at 18:30 Albuterol (Proventil 0.083% (Neb)) 2.5 mg Q2H RESP THERAPY PRN NEB SHORTNESS OF BREATH Last administered on 08/01/18 10:58; Admin Dose 2.5 MG; Start 07/18/18 at 18:30 Ipratropium [place] (Atrovent 0.02% (Neb)) 0.5 mg Q2H RESP THERAPY PRN NEB SHORTNESS OF BREATH Last administered on 08/01/18 04:44; Admin Dose 0.5 MG; Start 07/18/18 at 18:30 Hydromorphone HCl (Dilaudid) 0.5 mg Q4H PRN IV PAIN LEVEL 7-10 Last administered on 08/01/18 11:25; Admin Dose 0.5 MG; Start 07/18/18 at 18:30 Acetaminophen (Tylenol Liquid) 650 mg Q6H PRN GTB PAIN LEVEL 1-3 OR FEVER Last administered on 07/24/18 12:05; Admin Dose 650 MG; Start 07/19/18 at 10:30 Acetaminophen/ Hydrocodone Bitart ([place] (5/325)) 1 tab Q6H PRN GTB PAIN LEVEL 4-6 Last administered on 08/01/18 09:00; Admin Dose 1 TAB; Start 07/19/18 at 12:30 Docusate Sodium (Colace Liquid Cup) 100 mg Q12 PRN GTB CONSTIPATION Last administered on 07/27/18 09:25; Admin Dose 100 MG; Start 07/19/18 at 08:00 Docusate Sodium (Colace Liquid Cup) 100 mg QHS GTB Last administered on 21:21; Admin Dose 100 MG; Start 07/19/18 at 21:00 IV Flush (NS 10 ml) 10 ml PRN PRN IV FLUSH LINE; Start 07/19/18 at 18:30 Levetiracetam (Keppra Liquid) 500 mg Q12 GTB Last administered on 08/01/18 08:47; Admin Dose 500 MG; Start 07/20/18 at 21:00 Mupirocin (Bactroban) 1 applic BID TOP Last administered on 08/01/18 08:48; Admin Dose 1 APPLIC; Start 07/21/18 at 21:00 Sodium Hypochlorite (Dakins Diluted ()) 1 applic BID TP Last administered on 08/01/18 08:50; Admin Dose 1 APPLIC; Start 07/22/18 at 09:00 Collagenase (Santyl) 1 applic BID TOP Last administered on 08/01/18 08:48; Admin Dose 1 APPLIC; Start 07/22/18 at 09:00 Famotidine (Pepcid Iv) 20 mg BID IV Last administered on 08/01/18 08:48; Admin Dose 20 MG; Start 07/23/18 at 21:00 Epoetin Prince-epbx (Retacrit (Non-Esrd)) 10,000 unit MoWeFr@1700 SC Last administered on 07/30/18 17:16; Admin Dose 10,000 UNIT; Start 07/23/18 at 18:30 Metoclopramide HCl (Reglan) 5 mg TID IV Last administered on 08/01/18 12:46; Admin Dose 5 MG; Start 07/24/18 at 09:00 Quetiapine Fumarate (Seroquel) 75 mg BID GTB Last administered on 08/01/18 08:46; Admin Dose 75 MG; Start 07/29/18 at 21:00 Lubiprostone (Amitiza) 24 mcg BID PO Last administered on 08/01/18 08:45; Admin Dose 24 MCG; Start 07/30/18 at 21:00 Bisacodyl (Dulcolax Supp) 10 mg DAILY PRN MD CONSTIPATION; Start 07/31/18 at 13:30 REGINALDO CHERY NP Aug 01, 2018 15:18
[2018-08-01] MEDS: EPOETIN ALFA-EPBX (NON-ESRD 10,000 UNIT/ML VIAL SC SCH (17:41)
--- NOTE | 2018-08-01 17:59 | PN ---
DATE: 08/01/2018 SUBJECTIVE: The patient is awake, on ventilator support, breathing comfortably without any apparent respiratory distress. No episodes of desaturation. PHYSICAL EXAMINATION: VITAL SIGNS: Stable. Temperature 98, blood pressure 99/65, pulse rate 121, pulse oximetry 96% satur ation. GENERAL: On arrival, he has not had any fever spikes. NECK: Tracheostomy seems to be inclusion. He is able to maintain enough flow volumes without any ap parent leak. Secretions are minimal to moderate and no gross bleeding seen. HEART: No sinus tachycardia. CHEST: Breath sounds are heard bilaterally, somewhat diminished in the lower lung tierney with a few intermittent rales and rhonchi. ABDOMEN: Soft. He is tolerating G-tube feedings. Bowel sounds are present. EXTREMITIES: Show no edema. He is paraplegic. LABORATORY DATA: No lab results today. Antibiotic therapy has been stopped by the infectious disease media consultant. IMPRESSION: 1. Chronic ventilator-dependent respiratory failure. 2. Resolving sepsis. 3. Chronic kidney disease with acute kidney injury, improving. 4. Chronic anemia. 5. History of nephrolithiasis. 6. Paraplegia. 7. Spinal cord injury in the past. 8. History of bipolar disorder. PLAN: 1. Continue long-term ventilator support. 2. Continue bronchodilator inhalation therapy to clear the secretions and improve the bronchial hygi sp. 3. Continue hydration. 4. Continue supportive therapy. 5. I left a message again today. Thoracocervical consultation ____. The nursing staff will try to call him later and follow through. Dictated By: HUMBERTO PEREZ MD SR/NTS Conf#: [id number] DID#: [id number] CC: JOSÉ ANTONIO MIRZA MD;*EndCC*
--- NOTE | 2018-08-01 18:18 | PN ---
Date/Time of Note Date/Time of Note DATE: 08/01/18 TIME: 18:16 Assessment/Plan VTE Prophylaxis Risk score (from Ns)>0 risk: 6 SCD applied (from Ns): Yes Pharmacological prophylaxis: NA/contraindicated Pharm contraindication: anticoag not tolerated Lines/Catheters IV C[facility]ter Type [facility]from [facility] PICC Line Central line still needed: Yes Assessment/Plan Hospital Course Patient is awake alert, continues on ventilatory support, patient has a large tracheostomy stoma opening, Dr Woodruff is asked to see patient in ENT consultation today in a.m. Assessment/Plan - Anemia multifactorial, chronic disease and blood loss. S/p blood transfusion, continue Epogen. - Possible GI bleed. Dr. Borjas is following in gastroenterology consultation. - Ileus versus small bowel obstruction. - Sepsis with shock injury to possible healthcare acquired pneumonia and UTI, continue abx per ID. Dr. Maciel is following in infection disease consultation. - Acute on chronic renal failure. Continue to monitor BUN and creatinine. Dr. Barker is following in nephrology consultation. - Ventilator dependent respiratory failure, continue pulmonary toilet and [facility] hodilators. Dr Ames is following in pulmonology consultation. - Neurogenic bladder with suprapubic catheter. - Dysphagia with gastrostomy tube. - Multiple decubitus ulcers present on admission. - Cervical spine injury with paraplegia. - Bipolar disorder with psychosis. - Hx of right nephrectomy - Hx of left renal nephrolithiasis, hx of lithotripsy with insertion and subsequent removal of ureteral JJ stent. Further recommendations based on clinical course. Plan of care discussed with Dr. Barreto. Result Diagram: 07/31/1894007/31/18 0941 Exam/Review of Systems Exam Vitals Vital Signs Date Temp Pulse Resp B/P (MAP) Pulse Ox O2 O2 Flow FiO2 Time Delivery Rate 08/01/18 128 29 100 40 17:21 08/01/18 98.0 145/98 Mechanical 16:11 (114) Ventilator Trach Collar Intake and Output 07/31/18 07/31/18 08/01/18 1515:00 23:00 07:00 IntakeIntake Total 660 ml 1130 ml OutputOutput Total 400 ml 1200 ml 1650 ml BalanceBalance -400 ml -540 ml -520 ml Exam Constitutional: alert, awake Neck: supple, other (Tracheostomy) Respiratory: diminished breath sounds Cardiovascular: regular rate and rhythm Gastrointestinal: soft, non-tender, other (G-tube) Genitourinary - Male: other (Suprapubic catheter) Extremities: normal pulses, other (Contracted) Neurological: other (Paraplegia) Skin: other (Multiple wounds) Medications Medication Current Medications Bisacodyl (Dulcolax Supp) 10 mg DAILY [place] Last administered on 08/01/18 08:49; Admin Dose 10 MG; Start 07/19/18 at 09:00 Multivitamins Therapeutic (Theragran) 1 tab DAILY GTB Last administered on 08/01/18 08:46; Admin Dose 1 TAB; Start 07/19/18 at 09:00 Zinc Sulfate (Zinc Sulfate) 220 mg DAILY GTB Last administered on 08/01/18 08:46; Admin Dose 220 MG; Start 07/19/18 at 09:00 IV Flush (NS 3 ml) 3 ml PER PROTOCOL IV ; Start 07/18/18 at 18:30 Ondansetron HCl (Zofran Inj) 4 mg Q6H PRN IV NAUSEA AND/OR VOMITING Last administered on 07/23/18 21:38; Admin Dose 4 MG; Start 07/18/18 at 18:30 Albuterol (Proventil 0.083% (Neb)) 2.5 mg Q2H RESP THERAPY PRN NEB SHORTNESS OF BREATH Last administered on 08/01/18 10:58; Admin Dose 2.5 MG; Start 07/18/18 at 18:30 Ipratropium [place] (Atrovent 0.02% (Neb)) 0.5 mg Q2H RESP THERAPY PRN NEB SHORTNESS OF BREATH Last administered on 08/01/18 04:44; Admin Dose 0.5 MG; Start 07/18/18 at 18:30 Hydromorphone HCl (Dilaudid) 0.5 mg Q4H PRN IV PAIN LEVEL 7-10 Last administered on 08/01/18 16:15; Admin Dose 0.5 MG; Start 07/18/18 at 18:30 Acetaminophen (Tylenol Liquid) 650 mg Q6H PRN GTB PAIN LEVEL 1-3 OR FEVER Last administered on 07/24/18 12:05; Admin Dose 650 MG; Start 07/19/18 at 10:30 Acetaminophen/ Hydrocodone Bitart ([place] (5/325)) 1 tab Q6H PRN GTB PAIN LEVEL 4-6 Last administered on 08/01/18 09:00; Admin Dose 1 TAB; Start 07/19/18 at 12:30 Docusate Sodium (Colace Liquid Cup) 100 mg Q12 PRN GTB CONSTIPATION Last administered on 07/27/18 09:25; Admin Dose 100 MG; Start 07/19/18 at 08:00 Docusate Sodium (Colace Liquid Cup) 100 mg QHS GTB Last administered on 07/31/18 21:21; Admin Dose 100 MG; Start 07/19/18 at 21:00 IV Flush (NS 10 ml) 10 ml PRN PRN IV FLUSH LINE; Start 07/19/18 at 18:30 Levetiracetam (Keppra Liquid) 500 mg Q12 GTB Last administered on 08/01/18 08:47; Admin Dose 500 MG; Start 07/20/18 at 21:00 Mupirocin (Bactroban) 1 applic BID TOP Last administered on 08/01/18 08:48; Admin Dose 1 APPLIC; Start 07/21/18 at 21:00 Sodium Hypochlorite (Dakins Diluted (40)) 1 applic BID TP Last administered on 08/01/18 08:50; Admin Dose 1 APPLIC; Start 07/22/18 at 09:00 Collagenase (Santyl) 1 applic BID TOP Last administered on 08/01/18 08:48; Admin Dose 1 APPLIC; Start 07/22/18 at 09:00 Famotidine (Pepcid Iv) 20 mg BID IV Last administered on 08/01/18 08:48; Admin Dose 20 MG; Start 07/23/18 at 21:00 Epoetin Prince-epbx (Retacrit (Non-Esrd)) 10,000 unit MoWeFr@1700 SC Last adminis tered on 08/01/18 17:41; Admin Dose 10,000 UNIT; Start 07/23/18 at 18:30 Metoclopramide HCl (Reglan) 5 mg TID IV Last administered on 08/01/18 12:46; Admin Dose 5 MG; Start 07/24/18 at 09:00 Quetiapine Fumarate (Seroquel) 75 mg BID GTB Last administered on 08/01/18at 08:46; Admin Dose 75 MG; Start 07/29/18 at 21:00 Lubiprostone (Amitiza) 24 mcg BID PO Last administered on 08/01/18at 08:45; Admi n Dose 24 MCG; Start 07/30/18 at 21:00 Bisacodyl (Dulcolax Supp) 10 mg DAILY PRN [place] CONSTIPATION; Start 07/31/18 at 13:30 AISSATOU DUNCAN Aug 01, 2018 18:18
--- NOTE | 2018-08-01 19:26 | CONS ---
Assessment/Plan Assessment/Plan Assessment/Plan (Daily) Hospital Course (Demo Recall) 42 year old paraplegic male presents from SNF for sepsis secondary to pnuemonia and UTI was found to ileus vs SBO on KUB with one episode of coffee ground vomit. 1. Ileus vs SBO -resolved 2. Anemia, acute on chronic -neg FOB 3. Acute on chronic renal failure -h/o rt nephrectomy -improving 4. Sepsis secondary to pnuemonia and UTI 5. Pneumonia 6. UTI -Acinetobacter Baumannii 7. 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 Vent dependent respiratory failure 9. Dysphagia, s/p g tube 10. Bipolar disorder Plan Dulcolax suppository Increase feeding as per dietitian recommendation Continue Pepcid and reglan Continue tube feeds Amitiza 24 mcg BID Consultation Date/Type/Reason Admit Date/Time Jul 18, 2018 at 13:59 Initial Consult Date 07/18/18 Requesting Provider: JOSÉ ANTONIO MIRZA MD Date/Time of Note DATE: 08/01/18 TIME: 19:25 24 HR Interval Summary Constitutional: no complaints Exam/Review of Systems Exam Vitals Vital Signs Date Temp Pulse Resp B/P (MAP) Pulse Ox O2 O2 Flow FiO2 Time Delivery Rate 08/01/18 128 29 100 40 17:21 08/01/18 98.0 145/98 Mechanical 16:11 (114) Ventilator Trach Collar Intake and Output 07/31/18 07/31/18 08/01/18 1515:00 23:00 07:00 IntakeIntake Total 660 ml 1130 ml OutputOutput Total 400 ml 1200 ml 1650 ml BalanceBalance -400 ml -540 ml -520 ml ENMT: intubated Respiratory: diminished breath sounds Cardiovascular: regular rate and rhythm Gastrointestinal: soft, nl liver, spleen, non-tender Extremities: normal pulses Results Result Diagram: 07/31/1894007/31/18940 Medications Medication Current Medications Bisacodyl (Dulcolax Supp) 10 mg DAILY [place] Last administered on 08/01/18at 08:49; Admin Dose 10 MG; Start 07/19/18 at 09:00 Multivitamins Therapeutic (Theragran) 1 tab DAILY GTB Last administered on 08/01/18at 08:46; Admin Dose 1 TAB; Start 07/19/18 at 09:00 Zinc Sulfate (Zinc Sulfate) 220 mg DAILY GTB Last administered on 08/01/18 08:46; Admin Dose 220 MG; Start 07/19/18 at 09:00 IV Flush (NS 3 ml) 3 ml PER PROTOCOL IV ; Start 07/18/18 at 18:30 Ondansetron HCl (Zofran Inj) 4 mg Q6H PRN IV NAUSEA AND/OR VOMITING Last administered on 07/23/18 21:38; Admin Dose 4 MG; Start 07/18/18 at 18:30 Albuterol (Proventil 0.083% (Neb)) 2.5 mg Q2H RESP THERAPY PRN NEB SHORTNESS OF BREATH Last administered on 08/01/18 10:58; Admin Dose 2.5 MG; Start 07/18/18 at 18:30 Ipratropium [place] (Atrovent 0.02% (Neb)) 0.5 mg Q2H RESP THERAPY PRN NEB SHORTNESS OF BREATH Last administered on 08/01/18 04:44; Admin Dose 0.5 MG; Start 07/18/18 at 18:30 Hydromorphone HCl (Dilaudid) 0.5 mg Q4H PRN IV PAIN LEVEL 7-10 Last administered on 08/01/18 16:15; Admin Dose 0.5 MG; Start 07/18/18 at 18:30 Acetaminophen (Tylenol Liquid) 650 mg Q6H PRN GTB PAIN LEVEL 1-3 OR FEVER Last administered on 07/24/18 12:05; Admin Dose 650 MG; Start 07/19/18 at 10:30 Acetaminophen/ Hydrocodone Bitart ([place] (5/325)) 1 tab Q6H PRN GTB PAIN LEVEL 4-6 Last administered on 08/01/18 09:00; Admin Dose 1 TAB; Start 07/19/18 at 12:30 Docusate Sodium (Colace Liquid Cup) 100 mg Q12 PRN GTB CONSTIPATION Last administered on 07/27/18 09:25; Admin Dose 100 MG; Start 07/19/18 at 08:00 Docusate Sodium (Colace Liquid Cup) 100 mg QHS GTB Last administered on 07/31/18 21:21; Admin Dose 100 MG; Start 07/19/18 at 21:00 IV Flush (NS 10 ml) 10 ml PRN PRN IV FLUSH LINE; Start 07/19/18 at 18:30 Levetiracetam (Keppra Liquid) 500 mg Q12 GTB Last administered on 08/01/18 08:47; Admin Dose 500 MG; Start 07/20/18 at 21:00 Mupirocin (Bactroban) 1 applic BID TOP Last administered on 08/01/18 08:48; A dmin Dose 1 APPLIC; Start 07/21/18 at 21:00 Sodium Hypochlorite (Dakins Diluted ()) 1 applic BID TP Last administered on 08/01/18 08:50; Admin Dose 1 APPLIC; Start 07/22/18 at 09:00 Collagenase (Santyl) 1 applic BID TOP Last administered on 08/01/18 08:48; Admin Dose 1 APPLIC; Start 07/22/18 at 09:00 Famotidine (Pepcid Iv) 20 mg BID IV Last administered on 08/01/18 08:48; Admin Dose 20 MG; Start 07/23/18 at 21:00 Epoetin Prince-epbx (Retacrit (Non-Esrd)) 10,000 unit MoWeFr@1700 SC Last administered on 08/01/18 17:41; Admin Dose 10,000 UNIT; Start 07/23/18 at 18:30 Metoclopramide HCl (Reglan) 5 mg TID IV Last administered on 08/01/18 12:46; Admin Dose 5 MG; Start 07/24/18 at 09:00 Quetiapine Fumarate (Seroquel) 75 mg BID GTB Last administered on 08/01/18 08:46; Admin Dose 75 MG; Start 07/29/18 at 21:00 Lubiprostone (Amitiza) 24 mcg BID PO Last administered on 08/01/18 08:45; Admin Dose 24 MCG; Start 07/30/18 at 21:00 Bisacodyl (Dulcolax Supp) 10 mg DAILY PRN [place] CONSTIPATION; Start 07/31/18 at 13:30 OPAL STRATTON MD Aug 01, 2018 19:26
[2018-08-01] MEDS: DOCUSATE SODIUM 10 MG/ML (10ML CUP) GTB SCH (20:26)
[2018-08-02] VITALS (17 sets, daily range): BP systolic 98–151; BP diastolic 63–110; PULSE 98–117; RESP 19–35
[2018-08-02] MEDS: HYDROmorphONE 0.5 MG/0.5 ML SYG IV PRN ×6 (00:30→20:53)
--- NOTE | 2018-08-02 04:38 | CONS ---
DATE OF ADMISSION: 07/18/2018 DATE OF CONSULTATION: TYPE OF CONSULTATION: Inpatient. HOSPITAL COURSE: Henry Haddad is a 42-year-old gentleman with a long-term tracheostomy. The stom a is enlarging and pulmonary was worried about a leak. PAST MEDICAL HISTORY: The patient is disabled on long-term tracheostomy due to respiratory failure. PAST SURGICAL HISTORY: Tracheostomy. DRUG ALLERGIES: NONE. MEDICATIONS: Reviewed. SOCIAL HISTORY: Negative tobacco, alcohol or drug abuse. FAMILY HISTORY: Negative for any heart, lung, kidney failure, liver disease. REVIEW OF SYSTEMS: A 12-point review of systems is otherwise noncontributory. PHYSICAL EXAMINATION: Endoscopy through the tube shows normal trachea down to the level of the lela a. When looking at the stoma itself, the tracheostomy tube is running superiorly within the stoma an d there is 1 cm area below the tube of a tracheostomy opening, so we can see the superior portion of the balloon and we can see a little bit of a leak. IMPRESSION: 1. Respiratory failure. 2. Tracheostomy malfunction. PLAN: At this point, I believe that the patient has a difficult problem. He may very well need a fr ee flap to close that area and still leave the tracheostomy tube in place. With that being said, he could be referred to a tertiary care center for that procedure, but it is not something that could be performed in this hospital. If there are any questions or concerns, please free to call at any time . Dictated By: JENNIFER CURTIS MD DM/NTS Conf#: [id number] DID#: [id number] CC: JOSÉ ANTONIO MIRZA MD; DASHA DAVENPORT MD;*[facility]*
[2018-08-02] MEDS: DAKINS 0.0125%(1/40) 473 ML SOLUTION TP SCH ×2 (09:00→20:36)
[2018-08-02] MEDS: BISACODYL 10 MG SUPP PR SCH (09:00)
[2018-08-02] MEDS: LEVETIRACETAM (100 MG/ML) 5ML CUP GTB SCH ×2 (09:16→20:35)
[2018-08-02] MEDS: QUETIAPINE 25 MG TAB GTB SCH ×2 (09:22→20:35)
[2018-08-02] MEDS: MULTIVITAMINS THERAPEUTIC TAB GTB SCH (09:23)
[2018-08-02] MEDS: ZINC SULFATE 220 MG CAP GTB SCH (09:23)
[2018-08-02] MEDS: FAMOTIDINE 20 MG INJ IV SCH ×2 (09:23→20:35)
[2018-08-02] MEDS: LUBIPROSTONE 24 MCG CAP PO SCH ×2 (09:24→20:35)
[2018-08-02] MEDS: METOCLOPRAMIDE 10 MG INJ IV SCH ×3 (09:24→20:35)
[2018-08-02] MEDS: COLLAGENASE 5 GM (UD JAR) TOP SCH ×2 (09:25→20:36)
[2018-08-02] MEDS: MUPIROCIN 2% 22 GM OINT TOP SCH ×2 (09:25→20:36)
[2018-08-02] MEDS: BALSAM PERU/CASTOR OIL 60 GM TUBE TOP SCH ×2 (09:26→20:36)
--- NOTE | 2018-08-02 13:42 | CONS ---
Assessment/Plan Assessment/Plan Hospital Course (Demo Recall) Alert, looks comfortable, no fevers Antimicrobials: none Microbiology: Urine culture grew Acinetobacter susceptible to gentamicin tobramycin and Bactrim, blood cultures negative===> treated Allergies: Tetracyclines Indwelling: Trach, PEG, PICC line, suprapubic catheter Physical examination: Chronically ill-appearing wasted middle-aged man who is awake in no distress. Head atraumatic normocephalic sclera nonicteric vehicle mucosa dry neck is supple tracheostomy present chest rise symmetrical breath sounds diminished the bases. Heart: S1-S2. Abdomen soft bowel sounds present. Extremities wasted contractured Assessment: 1. Status post septic shock 2. Recurrent UTI/acute pyelonephritis, treated 3. Acute on chronic respiratory failure 4. Acute on chronic kidney disease 5. Incomplete quadriplegia 6. Anemia and thrombocytopenia 7. History of left breast nephrectomy 8. Multiple chronic decubitus ulcers 9. Diarrhea, rule out C. difficile 10. MRSA colonization of the naris Plan: Remains stable, continue observing off antibiotics, ENT rec-s noted Consultation Date/Type/Reason Admit Date/Time Jul 18, 2018 at 13:59 Initial Consult Date 07/18/18 Type of Consult id Requesting Provider: JOSÉ ANTONIO MIRZA MD Date/Time of Note DATE: 08/02/18 TIME: 13:42 Exam/Review of Systems Exam Vitals Vital Signs Date Temp Pulse Resp B/P (MAP) Pulse Ox O2 O2 Flow FiO2 Time Delivery Rate 08/02/18 119 29 97 40 12:55 08/02/18 98.0 98/63 (75) 11:55 08/01/18 Mechanical 16:11 Ventilator Trach Collar Intake and Output 08/01/18 08/01/18 08/02/18 1515:00 23:00 07:00 IntakeIntake Total 930 ml 930 ml OutputOutput Total 930 ml 700 ml BalanceBalance 0 ml 230 ml Results Result Diagram: 08/02/18 0610 08/02/18 0610 Results 24hrs Laboratory Tests Test 08/02/18 06:10 White Blood Count 7.2 # Red Blood Count 2.82 #L Hemoglobin 7.7 #L Hematocrit 28.2 L Mean Corpuscular Volume 100.0 Mean Corpuscular Hemoglobin 27.3 L Mean Corpuscular Hemoglobin Concent 27.3 L Red Cell Distribution Width 18.7 H Platelet Count 179 Mean Platelet Volume 11.8 H Immature Granulocytes % 0.400 Neutrophils % 82.0 H Lymphocytes % 8.3 L Monocytes % 7.9 Eosinophils % 1.3 Basophils % 0.1 Nucleated Red Blood Cells % 0.0 Immature Granulocytes # 0.030 Neutrophils # 5.9 Lymphocytes # 0.6 L Monocytes # 0.6 Eosinophils # 0.1 Basophils # 0.0 Nucleated Red Blood Cells # 0.0 Sodium Level 153 H Potassium Level 3.9 Chloride Level 120 H Carbon Dioxide Level 25 Anion Gap 8 Blood Urea Nitrogen 41 H Creatinine 1.58 H Est Glomerular Filtrat Rate mL/min 49 L Glucose Level 90 # Calcium Level 9.3 Total Bilirubin 0.4 Direct Bilirubin 0.00 Indirect Bilirubin 0.4 Aspartate Amino Transf (AST/SGOT) 16 Alanine Aminotransferase (ALT/SGPT) 12 L Alkaline Phosphatase 119 Total Protein 7.7 Albumin 3.5 Globulin 4.20 H Albumin/Globulin Ratio 0.83 Medications Medication Current Medications Bisacodyl (Dulcolax Supp) 10 mg DAILY [place] Last administered on 08/01/18 08:49; Admin Dose 10 MG; Start 07/19/18 at 09:00 Multivitamins Therapeutic (Theragran) 1 tab DAILY GTB Last administered on 08/02/18 09:23; Admin Dose 1 TAB; Start 07/19/18 at 09:00 Zinc Sulfate (Zinc Sulfate) 220 mg DAILY GTB Last administered on 08/02/18 09:23; Admin Dose 220 MG; Start 07/19/18 at 09:00 IV Flush (NS 3 ml) 3 ml PER PROTOCOL IV ; Start 07/18/18 at 18:30 Ondansetron HCl (Zofran Inj) 4 mg Q6H PRN IV NAUSEA AND/OR VOMITING Last administered on 07/23/18 21:38; Admin Dose 4 MG; Start 07/18/18 at 18:30 Albuterol (Proventil 0.083% (Neb)) 2.5 mg Q2H RESP THERAPY PRN NEB SHORTNESS OF BREATH Last administered on 08/01/18 10:58; Admin Dose 2.5 MG; Start 07/18/18 at 18:30 Ipratropium [place] (Atrovent 0.02% (Neb)) 0.5 mg Q2H RESP THERAPY PRN NEB SHORTNESS OF BREATH Last administered on 08/01/18 04:44; Admin Dose 0.5 MG; Start 07/18/18 at 18:30 Hydromorphone HCl (Dilaudid) 0.5 mg Q4H PRN IV PAIN LEVEL 7-10 Last admini stered on 08/02/18 12:57; Admin Dose 0.5 MG; Start 07/18/18 at 18:30 Acetaminophen (Tylenol Liquid) 650 mg Q6H PRN GTB PAIN LEVEL 1-3 OR FEVER Last administered on 07/24/18 12:05; Admin Dose 650 MG; Start 07/19/18 at 10:30 Acetaminophen/ Hydrocodone Bitart ([place] (5/325)) 1 tab Q6H PRN GTB PAIN LEVEL 4-6 Last administered on 08/01/18 09:00; Admin Dose 1 TAB; Start 07/19/18 at 12:30 Docusate Sodium (Colace Liquid Cup) 100 mg Q12 PRN GTB CONSTIPATION Last administered on 07/27/18 09:25; Admin Dose 100 MG; Start 07/19/18 at 08:00 Docusate Sodium (Colace Liquid Cup) 100 mg QHS GTB Last administered on 08/01/18 20:26; Admin Dose 100 MG; Start 07/19/18 at 21:00 IV Flush (NS 10 ml) 10 ml PRN PRN IV FLUSH LINE; Start 07/19/18 at 18:30 Levetiracetam (Keppra Liquid) 500 mg Q12 GTB Last administered on 08/02/18 09:16; Admin Dose 500 MG; Start 07/20/18 at 21:00 Mupirocin (Bactroban) 1 applic BID TOP Last administered on 08/02/18 09:25; Admin Dose 1 APPLIC; Start 07/21/18 at 21:00 Sodium Hypochlorite (Dakins Diluted ()) 1 applic BID TP Last administered on 08/01/18 20:29; Admin Dose 1 APPLIC; Start 07/22/18 at 09:00 Collagenase (Santyl) 1 applic BID TOP Last administered on 08/02/18 09:25; Admin Dose 1 APPLIC; Start 07/22/18 at 09:00 Famotidine (Pepcid Iv) 20 mg BID IV Last administered on 08/02/18 09:23; Admin Dose 20 MG; Start 07/23/18 at 21:00 Epoetin Prince-epbx (Retacrit (Non-Esrd)) 10,000 unit MoWeFr@1700 SC Last administered on 08/01/18at 17:41; Admin Dose 10,000 UNIT; Start 07/23/18 at 18:30 Metoclopramide HCl (Reglan) 5 mg TID IV Last administered on 08/02/18at 12:56; Admin Dose 5 MG; Start 07/24/18 at 09:00 Quetiapine Fumarate (Seroquel) 75 mg BID GTB Last administered on 08/02/18 09:22; Admin Dose 75 MG; Start 07/29/18 at 21:00 Lubiprostone (Amitiza) 24 mcg BID PO Last administered on 08/02/18at 09:24; Admin Dose 24 MCG; Start 07/30/18 at 21:00 Bisacodyl (Dulcolax Supp) 10 mg DAILY PRN [place] CONSTIPATION; Start 07/31/18 at 13:30 Alteplase, Recombinant (Cathflo (Activase)) 2 mg MAY REPEAT X1 PRN CATHETER IF CATHETER REMAINS OCCULUDED; Start 08/02/18 at 14:30 REGINALDO CHERY NP Aug 02, 2018 13:42
--- NOTE | 2018-08-02 14:17 | PN ---
DATE: 08/02/2018 SUBJECTIVE: The patient is on the medical floor on continuous ventilator support through tracheostom y. His breathing appears comfortable. PHYSICAL EXAMINATION: VITAL SIGNS: Stable. Temperature 98.4, blood pressure 151/110, pulse rate 98, respirations 20, puls e oximetry 99% saturation. NECK: Tracheal secretions are minimal to moderate. No bleeding seen. HEART: Regular rhythm with periods of sinus tachycardia when he gets agitated. CHEST: Breath sounds are diminished in both the lower lung tierney with a few intermittent rales or r honchi. ABDOMEN: Soft, no distention seen. He is tolerating G-tube feedings. Bowel sounds are present. EXTREMITIES: Show no edema. He is paraplegic. LABORATORY DATA: Show persistent hyponatremia. Sodium 153, potassium 3.9, BUN is 41, creatinine 1.5 8, glucose is 90. CBC shows a WBC 7200, hemoglobin 7.7, hematocrit 28.2, platelets within normal espino its. The patient has been off antibiotics. GENERAL: The patient has been seen by Dr. Woodruff in ENT evaluation, who feels that the patient needs to be referred to a tertiary care hospital. The procedure is complicated for minimizing the tracheo stomy opening. IMPRESSION: 1. Chronic ventilator dependent respiratory failure. 2. Resolving sepsis. 3. Chronic kidney disease with acute kidney injury, improving. 4. Chronic anemia. 5. History of nephrolithiasis. 6. Paraplegia. 7. History of spinal cord injury in the past. 8. History of bipolar disorder. RECOMMENDATIONS: 1. Continue long-term ventilator support. 2. Continue bronchodilator inhalation therapy to clear her secretions and improve bronchial hygiene. 3. Continue hydration. 4. Continue supportive therapy. 5. Will discuss with Dr. Mirza, the primary physician about the tracheostomy problems. As of now , the patient's condition seems stable and any further procedure can wait until his condition improve s and referring him to tertiary hospital may be difficult given the patient's present condition. Dictated By: HUMBERTO PEREZ MD SR/NTS Conf#: [id number] DID#: [id number] CC: JOSÉ ANTONIO MIRZA MD;*[facility]*
[2018-08-02] MEDS ORDERED: ALTEPLASE (CATHFLO) 2 MG INJ CATHETER PRN (14:30)
--- NOTE | 2018-08-02 15:37 | CONS ---
Assessment/Plan Assessment/Plan Assessment/Plan (Daily) 1. Acute kidney injury on CKD IV due to severe prerenal azotemia 2. Septic shock s/p levophed in ICU 3. PNA concerned about HCAP 4. UTI with Urine Cx growing Acinetobacter 5. 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 Ventilator dependant respiratory failure s/p Tracheostomy 7. S/p G tube placement 8. 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 H/o Right nephrectomy with left Nephrolithiasis 10 .H/o Bipolar disorder 12. Severe Anemia possibly due to Combination of Anemia of CKD + acute blood loss anemia s/p PRBC transfusion during this admission Plan: BUN/Cr 41/1.53, Na 153, other electrolytes stable yesterday - on IVF D5W at 60 cc/hr - continue free water 200 cc Q 4 hr x 48 hr through G tube s/p PRBC transfusion during this admission, continue Epogen 42058 units SQ MWF s/p IV abx for UTI, now off antibiotic, renally dose all medications and monitor electrolytes, replace as needed We will continue to follow up Consultation Date/Type/Reason Admit Date/Time Jul 18, 2018 at 13:59 Initial Consult Date 07/18/18 Type of Consult NEPHROLOGY Requesting Provider: JOSÉ ANTONIO MIRZA MD Date/Time of Note DATE: 08/02/18 TIME: 15:37 Exam/Review of Systems Exam Vitals Vital Signs Date Temp Pulse Resp B/P (MAP) Pulse Ox O2 O2 Flow FiO2 Time Delivery Rate 08/02/18 119 29 97 40 12:55 08/02/18 98.0 98/63 (75) 11:55 08/01/18 Mechanical 16:11 Ventilator Trach Collar Intake and Output 08/01/18 08/01/18 08/02/18 1515:00 23:00 07:00 IntakeIntake Total 930 ml 930 ml OutputOutput Total 930 ml 700 ml BalanceBalance 0 ml 230 ml Results Result Diagram: 08/02/18 0610 08/02/18 0610 Results 24hrs Laboratory Tests Test 08/02/18 06:10 White Blood Count 7.2 # Red Blood Count 2.82 #L Hemoglobin 7.7 #L Hematocrit 28.2 L Mean Corpuscular Volume 100.0 Mean Corpuscular Hemoglobin 27.3 L Mean Corpuscular Hemoglobin Concent 27.3 L Red Cell Distribution Width 18.7 H Platelet Count 179 Mean Platelet Volume 11.8 H Immature Granulocytes % 0.400 Neutrophils % 82.0 H Lymphocytes % 8.3 L Monocytes % 7.9 Eosinophils % 1.3 Basophils % 0.1 Nucleated Red Blood Cells % 0.0 Immature Granulocytes # 0.030 Neutrophils # 5.9 Lymphocytes # 0.6 L Monocytes # 0.6 Eosinophils # 0.1 Basophils # 0.0 Nucleated Red Blood Cells # 0.0 Sodium Level 153 H Potassium Level 3.9 Chloride Level 120 H Carbon Dioxide Level 25 Anion Gap 8 Blood Urea Nitrogen 41 H Creatinine 1.58 H Est Glomerular Filtrat Rate mL/min 49 L Glucose Level 90 # Calcium Level 9.3 Total Bilirubin 0.4 Direct Bilirubin 0.00 Indirect Bilirubin 0.4 Aspartate Amino Transf (AST/SGOT) 16 Alanine Aminotransferase (ALT/SGPT) 12 L Alkaline Phosphatase 119 Total Protein 7.7 Albumin 3.5 Globulin 4.20 H Albumin/Globulin Ratio 0.83 Medications Medication Current Medications Bisacodyl (Dulcolax Supp) 10 mg DAILY [place] Last administered on 08/01/18 08:49; Admin Dose 10 MG; Start 07/19/18 at 09:00 Multivitamins Therapeutic (Theragran) 1 tab DAILY GTB Last administered on 08/02/18 09:23; Admin Dose 1 TAB; Start 07/19/18 at 09:00 Zinc Sulfate (Zinc Sulfate) 220 mg DAILY GTB Last administered on 08/02/18 09:23; Admin Dose 220 MG; Start 07/19/18 at 09:00 IV Flush (NS 3 ml) 3 ml PER PROTOCOL IV ; Start 07/18/18 at 18:30 Ondansetron HCl (Zofran Inj) 4 mg Q6H PRN IV NAUSEA AND/OR VOMITING Last administered on 07/23/18 21:38; Admin Dose 4 MG; Start 07/18/18 at 18:30 Albuterol (Proventil 0.083% (Neb)) 2.5 mg Q2H RESP THERAPY PRN NEB SHORTNESS OF BREATH Last administered on 08/01/18 10:58; Admin Dose 2.5 MG; Start 07/18/18 at 18:30 Ipratropium [place] (Atrovent 0.02% (Neb)) 0.5 mg Q2H RESP THERAPY PRN NEB SHORTNESS OF BREATH Last administered on 08/01/18 04:44; Admin Dose 0.5 MG; Start 07/18/18 at 18:30 Hydromorphone HCl (Dilaudid) 0.5 mg Q4H PRN IV PAIN LEVEL 7-10 Last administered on 08/02/18 12:57; Admin Dose 0.5 MG; Start 07/18/18 at 18:30 Acetaminophen (Tylenol Liquid) 650 mg Q6H PRN GTB PAIN LEVEL 1-3 OR FEVER Last administered on 07/24/18 12:05; Admin Dose 650 MG; Start 07/19/18 at 10:30 Acetaminophen/ Hydrocodone Bitart ([place] (5/325)) 1 tab Q6H PRN GTB PAIN LEVEL 4-6 Last administered on 08/01/18 09:00; Admin Dose 1 TAB; Start 07/19/18 at 12:30 Docusate Sodium (Colace Liquid Cup) 100 mg Q12 PRN GTB CONSTIPATION Last administered on 07/27/18 09:25; Admin Dose 100 MG; Start 07/19/18 at 08:00 Docusate Sodium (Colace Liquid Cup) 100 mg QHS GTB Last administered on 08/01/18 20:26; Admin Dose 100 MG; Start 07/19/18 at 21:00 IV Flush (NS 10 ml) 10 ml PRN PRN IV FLUSH LINE; Start 07/19/18 at 18:30 Levetiracetam (Keppra Liquid) 500 mg Q12 GTB Last administered on 08/02/18 09:16; Admin Dose 500 MG; Start 07/20/18 at 21:00 Mupirocin (Bactroban) 1 applic BID TOP Last administered on 08/02/18 09:25; Admin Dose 1 APPLIC; Start 07/21/18 at 21:00 Sodium Hypochlorite (Dakins Diluted (40)) 1 applic BID TP Last administered on 08/01/18 20:29; Admin Dose 1 APPLIC; Start 07/22/18 at 09:00 Collagenase (Santyl) 1 applic BID TOP Last administered on 08/02/18 09:25; Admin Dose 1 APPLIC; Start 07/22/18 at 09:00 Famotidine (Pepcid Iv) 20 mg BID IV Last administered on 08/02/18 09:23; Admin Dose 20 MG; Start 07/23/18 at 21:00 Epoetin Prince-epbx (Retacrit (Non-Esrd)) 10,000 unit MoWeFr@1700 SC Last administered on 08/01/18at 17:41; Admin Dose 10,000 UNIT; Start 07/23/18 at 18:30 Metoclopramide HCl (Reglan) 5 mg TID IV Last administered on 08/02/18at 12:56; Admin Dose 5 MG; Start 07/24/18 at 09:00 Quetiapine Fumarate (Seroquel) 75 mg BID GTB Last administered on 08/02/18at 09:22; Admin Dose 75 MG; Start 07/29/18 at 21:00 Lubiprostone (Amitiza) 24 mcg BID PO Last administered on 08/02/18at 09:24; Admin Dose 24 MCG; Start 07/30/18 at 21:00 Bisacodyl (Dulcolax Supp) 10 mg DAILY PRN [place] CONSTIPATION; Start 07/31/18 at 13:30 Alteplase, Recombinant (Cathflo (Activase)) 2 mg MAY REPEAT X1 PRN CATHETER IF CATHETER REMAINS OCCULUDED; Start 08/02/18 at 14:30 TIARA CISNEROS MD Aug 02, 2018 15:37
--- NOTE | 2018-08-02 17:57 | CONS ---
Assessment/Plan Assessment/Plan Assessment/Plan (Daily) Assessment/Plan (Daily) Hospital Course (Demo Recall) 42 year old paraplegic male presents from SNF for sepsis secondary to pnuemonia and UTI was found to ileus vs SBO on KUB with one episode of coffee ground vomit. 1. Ileus vs SBO -resolved 2. Anemia, acute on chronic -neg FOB 3. Acute on chronic renal failure -h/o rt nephrectomy -improving 4. Sepsis secondary to pnuemonia and UTI 5. Pneumonia 6. UTI -Acinetobacter Baumannii 7. Paraplegia secondary to cervical spine injury, patient is a wasting of the muscles both of upper and lower extremity 8. Vent dependent respiratory failure 9. Dysphagia, s/p g tube 10. Bipolar disorder Plan Increase feeding as per dietitian recommendation Continue Pepcid and reglan Continue tube feeds Amitiza 24 mcg BID Consultation Date/Type/Reason Admit Date/Time Jul 18, 2018 at 13:59 Initial Consult Date 07/18/18 Requesting Provider: JOSÉ ANTONIO MIRZA MD Date/Time of Note DATE: 08/02/18 TIME: 17:56 24 HR Interval Summary Free Text/Dictation No nausea no vomiting no abdominal pain. No diarrhea no GI bleeding Exam/Review of Systems Exam Vitals Vital Signs Date Temp Pulse Resp B/P (MAP) Pulse Ox O2 O2 Flow FiO2 Time Delivery Rate 08/02/18 116 29 98 40 17:03 08/02/18 98.6 131/87 15:46 (102) 08/01/18 Mechanical 16:11 Ventilator Trach Collar Intake and Output 08/01/18 08/01/18 08/02/18 1515:00 23:00 07:00 IntakeIntake Total 930 ml 930 ml OutputOutput Total 930 ml 700 ml BalanceBalance 0 ml 230 ml Constitutional: alert, oriented Head: No normocephalic, No atraumatic, No lacerations, No hematomas, No other ENMT: intubated Respiratory: diminished breath sounds Cardiovascular: regular rate and rhythm Musculoskeletal: muscle weakness Results Result Diagram: 08/02/18 0610 08/02/18 0610 Results 24hrs Laboratory Tests Test 08/02/18 06:10 White Blood Count 7.2 # Red Blood Count 2.82 #L Hemoglobin 7.7 #L Hematocrit 28.2 L Mean Corpuscular Volume 100.0 Mean Corpuscular Hemoglobin 27.3 L Mean Corpuscular Hemoglobin Concent 27.3 L Red Cell Distribution Width 18.7 H Platelet Count 179 Mean Platelet Volume 11.8 H Immature Granulocytes % 0.400 Neutrophils % 82.0 H Lymphocytes % 8.3 L Monocytes % 7.9 Eosinophils % 1.3 Basophils % 0.1 Nucleated Red Blood Cells % 0.0 Immature Granulocytes # 0.030 Neutrophils # 5.9 Lymphocytes # 0.6 L Monocytes # 0.6 Eosinophils # 0.1 Basophils # 0.0 Nucleated Red Blood Cells # 0.0 Sodium Level 153 H Potassium Level 3.9 Chloride Level 120 H Carbon Dioxide Level 25 Anion Gap 8 Blood Urea Nitrogen 41 H Creatinine 1.58 H Est Glomerular Filtrat Rate mL/min 49 L Glucose Level 90 # Calcium Level 9.3 Total Bilirubin 0.4 Direct Bilirubin 0.00 Indirect Bilirubin 0.4 Aspartate Amino Transf (AST/SGOT) 16 Alanine Aminotransferase (ALT/SGPT) 12 L Alkaline Phosphatase 119 Total Protein 7.7 Albumin 3.5 Globulin 4.20 H Albumin/Globulin Ratio 0.83 Medications Medication Current Medications Bisacodyl (Dulcolax Supp) 10 mg DAILY [place] Last administered on 08/01/18at 08:49; Admin Dose 10 MG; Start 07/19/18 at 09:00 Multivitamins Therapeutic (Theragran) 1 tab DAILY GTB Last administered on 08/02/18 09:23; Admin Dose 1 TAB; Start 07/19/18 at 09:00 Zinc Sulfate (Zinc Sulfate) 220 mg DAILY GTB Last administered on 08/02/18 09:23; Admin Dose 220 MG; Start 07/19/18 at 09:00 IV Flush (NS 3 ml) 3 ml PER PROTOCOL IV ; Start 07/18/18 at 18:30 Ondansetron HCl (Zofran Inj) 4 mg Q6H PRN IV NAUSEA AND/OR VOMITING Last administered on 07/23/18at 21:38; Admin Dose 4 MG; Start 07/18/18 at 18:30 Albuterol (Proventil 0.083% (Neb)) 2.5 mg Q2H RESP THERAPY PRN NEB SHORTNESS OF BREATH Last administered on 08/01/18at 10:58; Admin Dose 2.5 MG; Start 07/18/18 a t 18:30 Ipratropium [place] (Atrovent 0.02% (Neb)) 0.5 mg Q2H RESP THERAPY PRN NEB SHORTNESS OF BREATH Last administered on 08/01/18 04:44; Admin Dose 0.5 MG; Start 07/18/18 at 18:30 Hydromorphone HCl (Dilaudid) 0.5 mg Q4H PRN IV PAIN LEVEL 7-10 Last administered on 08/02/18 17:02; Admin Dose 0.5 MG; Start 07/18/18 at 18:30 Acetaminophen (Tylenol Liquid) 650 mg Q6H PRN GTB PAIN LEVEL 1-3 OR FEVER Last administered on 07/24/18 12:05; Admin Dose 650 MG; Start 07/19/18 at 10:30 Acetaminophen/ Hydrocodone Bitart ([place] (5/325)) 1 tab Q6H PRN GTB PAIN LEVEL 4-6 Last administered on 08/01/18 09:00; Admin Dose 1 TAB; Start 07/19/18 at 12:30 Docusate Sodium (Colace Liquid Cup) 100 mg Q12 PRN GTB CONSTIPATION Last administered on 07/27/18 09:25; Admin Dose 100 MG; Start 07/19/18 at 08:00 Docusate Sodium (Colace Liquid Cup) 100 mg QHS GTB Last administered on 08/01/18 20:26; Admin Dose 100 MG; Start 07/19/18 at 21:00 IV Flush (NS 10 ml) 10 ml PRN PRN IV FLUSH LINE; Start 07/19/18 at 18:30 Levetiracetam (Keppra Liquid) 500 mg Q12 GTB Last administered on 08/02/18 09:16; Admin Dose 500 MG; Start 07/20/18 at 21:00 Mupirocin (Bactroban) 1 applic BID TOP Last administered on 08/02/18 09:25; Admin Dose 1 APPLIC; Start 07/21/18 at 21:00 Sodium Hypochlorite (Dakins Diluted (40)) 1 applic BID TP Last administered on 08/01/18 20:29; Admin Dose 1 APPLIC; Start 07/22/18 at 09:00 Collagenase (Santyl) 1 applic BID TOP Last administered on 08/02/18 09:25; Admin Dose 1 APPLIC; Start 07/22/18 at 09:00 Famotidine (Pepcid Iv) 20 mg BID IV Last administered on 08/02/18 09:23; Admin Dose 20 MG; Start 07/23/18 at 21:00 Epoetin [place]-epbx (Retacrit (Non-Esrd)) 10,000 unit MoWeFr@1700 SC Last administered on 08/01/18 17:41; Admin Dose 10,000 UNIT; Start 07/23/18 at 18:30 Metoclopramide HCl (Reglan) 5 mg TID IV Last administered on 08/02/18 12:56; Admin Dose 5 MG; Start 07/24/18 at 09:00 Quetiapine Fumarate (Seroquel) 75 mg BID GTB Last administered on 08/02/18 09:22; Admin Dose 75 MG; Start 07/29/18 at 21:00 Lubiprostone (Amitiza) 24 mcg BID PO Last administered on 08/02/18 09:24; Admin Dose 24 MCG; Start 07/30/18 at 21:00 Bisacodyl (Dulcolax Supp) 10 mg DAILY PRN [place] CONSTIPATION; Start 07/31/18 at 13:30 Alteplase, Recombinant (Cathflo (Activase)) 2 mg MAY REPEAT X1 PRN CATHETER IF CATHETER REMAINS OCCULUDED Last administered on 08/02/18at 15:54; Admin Dose 2 MG; Start 08/02/18 at 14:30 OPAL STRATTON MD Aug 02, 2018 17:57
[2018-08-02] MEDS: DOCUSATE SODIUM 10 MG/ML (10ML CUP) GTB SCH (20:35)
--- NOTE | 2018-08-02 20:37 | PN ---
Date/Time of Note Date/Time of Note DATE: 08/02/18 TIME: 20:36 Assessment/Plan VTE Prophylaxis Risk score (from Ns)>0 risk: 7 SCD applied (from Ns): Yes Pharmacological prophylaxis: NA/contraindicated Pharm contraindication: other Lines/Catheters IV Catheter Type (from Nrsg): PICC Line Central line still needed: Yes Urinary Cath still in place: Yes Reason Cath still needed: urinary retention Assessment/Plan Hospital Course Pt is awake, alert, continues on vent, Na is 153, tachy at times. Assessment/Plan - Hypernatremia, continue free water with GT, IVF with D5W. Dr. Barker is following in nephrology consultation. - Large tracheal opening, s/p evaluation by Dr Woodruff in ENT consultation with recommendation to transfer to tertiary care center for free flap closure. - Anemia of chronic disease. S/p blood transfusion, continue Epogen. Stool for OB is neg. Dr. Borjas is following in gastroenterology consultation. - Ileus versus small bowel obstruction, resolved. - Sepsis with shock injury to possible healthcare acquired pneumonia and UTI, completed treatment with abx. Dr. Maciel is following in infection disease consultation. - Acute on chronic renal failure. Continue to monitor BUN and creatinine. - Ventilator dependent respiratory failure, continue pulmonary toilet and bronc hodilators. Dr Ames is following in pulmonology consultation. - Neurogenic bladder with suprapubic catheter. - Dysphagia with gastrostomy tube. - Multiple decubitus ulcers present on admission. - Cervical spine injury with paraplegia. - Bipolar disorder with psychosis. - Hx of right nephrectomy - Hx of left renal nephrolithiasis, hx of lithotripsy with insertion and subsequent removal of ureteral JJ stent. Further recommendations based on clinical course. Plan of care discussed with Dr. Barreto. Result Diagram: 08/02/18 0610 08/02/18 0610 Results 24hrs Laboratory Tests Test 08/02/18 06:10 White Blood Count 7.2 # Red Blood Count 2.82 #L Hemoglobin 7.7 #L Hematocrit 28.2 L Mean Corpuscular Volume 100.0 Mean Corpuscular Hemoglobin 27.3 L Mean Corpuscular Hemoglobin Concent 27.3 L Red Cell Distribution Width 18.7 H Platelet Count 179 Mean Platelet Volume 11.8 H Immature Granulocytes % 0.400 Neutrophils % 82.0 H Lymphocytes % 8.3 L Monocytes % 7.9 Eosinophils % 1.3 Basophils % 0.1 Nucleated Red Blood Cells % 0.0 Immature Granulocytes # 0.030 Neutrophils # 5.9 Lymphocytes # 0.6 L Monocytes # 0.6 Eosinophils # 0.1 Basophils # 0.0 Nucleated Red Blood Cells # 0.0 Sodium Level 153 H Potassium Level 3.9 Chloride Level 120 H Carbon Dioxide Level 25 Anion Gap 8 Blood Urea Nitrogen 41 H Creatinine 1.58 H Est Glomerular Filtrat Rate mL/min 49 L Glucose Level 90 # Calcium Level 9.3 Total Bilirubin 0.4 Direct Bilirubin 0.00 Indirect Bilirubin 0.4 Aspartate Amino Transf (AST/SGOT) 16 Alanine Aminotransferase (ALT/SGPT) 12 L Alkaline Phosphatase 119 Total Protein 7.7 Albumin 3.5 Globulin 4.20 H Albumin/Globulin Ratio 0.83 Exam/Review of Systems Exam Vitals Vital Signs Date Temp Pulse Resp B/P (MAP) Pulse Ox O2 O2 Flow FiO2 Time Delivery Rate 08/02/18 40 19:49 08/02/18 106 26 98 19:45 08/02/18 98.6 117/89 19:38 (98) 08/01/18 Mechanical 16:11 Ventilator Trach Collar Intake and Output 08/01/18 08/01/18 08/02/18 1515:00 23:00 07:00 IntakeIntake Total 930 ml 930 ml OutputOutput Total 930 ml 700 ml BalanceBalance 0 ml 230 ml Exam Constitutional: alert, awake Neck: supple, other (Tracheostomy) Respiratory: diminished breath sounds Cardiovascular: regular rate and rhythm Gastrointestinal: soft, non-tender, other (G-tube) Genitourinary - Male: other (Suprapubic catheter) Extremities: normal pulses, other (Contracted) Neurological: other (Paraplegia) Skin: other (Multiple wounds) Results Results 24hrs Laboratory Tests Test 08/02/18 06:10 White Blood Count 7.2 # Red Blood Count 2.82 #L Hemoglobin 7.7 #L Hematocrit 28.2 L Mean Corpuscular Volume 100.0 Mean Corpuscular Hemoglobin 27.3 L Mean Corpuscular Hemoglobin Concent 27.3 L Red Cell Distribution Width 18.7 H Platelet Count 179 Mean Platelet Volume 11.8 H Immature Granulocytes % 0.400 Neutrophils % 82.0 H Lymphocytes % 8.3 L Monocytes % 7.9 Eosinophils % 1.3 Basophils % 0.1 Nucleated Red Blood Cells % 0.0 Immature Granulocytes # 0.030 Neutrophils # 5.9 Lymphocytes # 0.6 L Monocytes # 0.6 Eosinophils # 0.1 Basophils # 0.0 Nucleated Red Blood Cells # 0.0 Sodium Level 153 H Potassium Level 3.9 Chloride Level 120 H Carbon Dioxide Level 25 Anion Gap 8 Blood Urea Nitrogen 41 H Creatinine 1.58 H Est Glomerular Filtrat Rate mL/min 49 L Glucose Level 90 # Calcium Level 9.3 Total Bilirubin 0.4 Direct Bilirubin 0.00 Indirect Bilirubin 0.4 Aspartate Amino Transf (AST/SGOT) 16 Alanine Aminotransferase (ALT/SGPT) 12 L Alkaline Phosphatase 119 Total Protein 7.7 Albumin 3.5 Globulin 4.20 H Albumin/Globulin Ratio 0.83 Medications Medication Current Medications Bisacodyl (Dulcolax Supp) 10 mg DAILY [place] Last administered on 08/01/18 08:49; Admin Dose 10 MG; Start 07/19/18 at 09:00 Multivitamins Therapeutic (Theragran) 1 tab DAILY GTB Last administered on 08/02/18 09:23; Admin Dose 1 TAB; Start 07/19/18 at 09:00 Zinc Sulfate (Zinc Sulfate) 220 mg DAILY GTB Last administered on 08/02/18 09:23; Admin Dose 220 MG; Start 07/19/18 at 09:00 IV Flush (NS 3 ml) 3 ml PER PROTOCOL IV ; Start 07/18/18 at 18:30 Ondansetron HCl (Zofran Inj) 4 mg Q6H PRN IV NAUSEA AND/OR VOMITING Last administered on 07/23/18at 21:38; Admin Dose 4 MG; Start 07/18/18 at 18:30 Albuterol (Proventil 0.083% (Neb)) 2.5 mg Q2H RESP THERAPY PRN NEB SHORTNESS OF BREATH Last administered on 08/01/18 10:58; Admin Dose 2.5 MG; Start 07/18/18 at 18:30 Ipratropium [place] (Atrovent 0.02% (Neb)) 0.5 mg Q2H RESP THERAPY PRN NEB SH ORTNESS OF BREATH Last administered on 08/01/18 04:44; Admin Dose 0.5 MG; Start 07/18/18 at 18:30 Hydromorphone HCl (Dilaudid) 0.5 mg Q4H PRN IV PAIN LEVEL 7-10 Last administered on 08/02/18 17:02; Admin Dose 0.5 MG; Start 07/18/18 at 18:30 Acetaminophen (Tylenol Liquid) 650 mg Q6H PRN GTB PAIN LEVEL 1-3 OR FEVER Last administered on 07/24/18 12:05; Admin Dose 650 MG; Start 07/19/18 at 10:30 Acetaminophen/ Hydrocodone Bitart ([place] (5/325)) 1 tab Q6H PRN GTB PAIN LEVEL 4-6 Last administered on 08/01/18 09:00; Admin Dose 1 TAB; Start 07/19/18 at 12:30 Docusate Sodium (Colace Liquid Cup) 100 mg Q12 PRN GTB CONSTIPATION Last administered on 07/27/18 09:25; Admin Dose 100 MG; Start 07/19/18 at 08:00 Docusate Sodium (Colace Liquid Cup) 100 mg QHS GTB Last administered on 08/01/18 20:26; Admin Dose 100 MG; Start 07/19/18 at 21:00 IV Flush (NS 10 ml) 10 ml PRN PRN IV FLUSH LINE; Start 07/19/18 at 18:30 Levetiracetam (Keppra Liquid) 500 mg Q12 GTB Last administered on 08/02/18 09 :16; Admin Dose 500 MG; Start 07/20/18 at 21:00 Mupirocin (Bactroban) 1 applic BID TOP Last administered on 08/02/18 09:25; Admin Dose 1 APPLIC; Start 07/21/18 at 21:00 Sodium Hypochlorite (Dakins Diluted (1/40)) 1 applic BID TP Last administered on 08/01/18 20:29; Admin Dose 1 APPLIC; Start 07/22/18 at 09:00 Collagenase (Santyl) 1 applic BID TOP Last administered on 08/02/18 09:25; Admin Dose 1 APPLIC; Start 07/22/18 at 09:00 Famotidine (Pepcid Iv) 20 mg BID IV Last administered on 08/02/18 09:23; Admin Dose 20 MG; Start 07/23/18 at 21:00 Epoetin [place]-epbx (Retacrit (Non-Esrd)) 10,000 unit MoWeFr@1700 SC Last administered on 08/01/18 17:41; Admin Dose 10,000 UNIT; Start 07/23/18 at 18:30 Metoclopramide HCl (Reglan) 5 mg TID IV Last administered on 08/02/18 12:56; Admin Dose 5 MG; Start 07/24/18 at 09:00 Quetiapine Fumarate (Seroquel) 75 mg BID GTB Last administered on 08/02/18 09:22; Admin Dose 75 MG; Start 07/29/18 at 21:00 Lubiprostone (Amitiza) 24 mcg BID PO Last administered on 08/02/18 09:24; Admin Dose 24 MCG; Start 07/30/18 at 21:00 Bisacodyl (Dulcolax Supp) 10 mg DAILY PRN [place] CONSTIPATION; Start 07/31/18 at 13:30 Alteplase, Recombinant (Cathflo (Activase)) 2 mg MAY REPEAT X1 PRN CATHETER IF CATHETER REMAINS OCCULUDED Last administered on 08/02/18at 15:54; Admin Dose 2 MG; Start 08/02/18 at 14:30 AISSATOU DUNCAN Aug 02, 2018 20:37
[2018-08-03] VITALS (17 sets, daily range): BP systolic 107–153; BP diastolic 77–108; PULSE 93–126; RESP 18–34
[2018-08-03] MEDS: HYDROmorphONE 0.5 MG/0.5 ML SYG IV PRN ×6 (01:35→21:32)
--- NOTE | 2018-08-03 07:35 | CONS ---
Assessment/Plan Assessment/Plan Assessment/Plan (Daily) 1. Acute kidney injury on CKD IV due to severe prerenal azotemia 2. Septic shock s/p levophed in ICU 3. PNA concerned about HCAP 4. UTI with Urine Cx growing Acinetobacter 5. 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 Ventilator dependant respiratory failure s/p Tracheostomy 7. S/p G tube placement 8. 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 H/o Right nephrectomy with left Nephrolithiasis 10 .H/o Bipolar disorder 12. Severe Anemia possibly due to Combination of Anemia of CKD + acute blood loss anemia s/p PRBC transfusion during this admission Plan: BUN/Cr 41/1.58, Na 153, other electrolytes stable yesterday - on IVF D5W at 60 cc/hr - continue free water 200 cc Q 4 hr s/p PRBC transfusion during this admission, continue Epogen [id number] units SQ MWF s/p IV abx for UTI, now off antibiotic, renally dose all medications and monitor electrolytes, replace as needed We will continue to follow up Consultation Date/Type/Reason Admit Date/Time Jul 18, 2018 at 13:59 Initial Consult Date 07/18/18 Type of Consult NEPHROLOGY Requesting Provider: JOSÉ ANTONIO MIRZA MD Date/Time of Note DATE: 08/03/18 TIME: 07:35 Exam/Review of Systems Exam Vitals Vital Signs Date Temp Pulse Resp B/P (MAP) Pulse Ox O2 O2 Flow FiO2 Time Delivery Rate 08/03/18 88 31 100 40 05:02 08/03/18 98.7 115/86 03:29 (96) 08/01/18 Mechanical 16:11 Ventilator Trach Collar Intake and Output 08/02/18 08/02/18 08/03/18 1515:00 23:00 07:00 IntakeIntake Total 930 ml 1018 ml OutputOutput Total 1100 ml 650 ml BalanceBalance -170 ml 368 ml Exam Constitutional: non-verbal, awake, alert, no acute distress Head: normocephalic ENMT: other (+ tracheostomy ) Neck: supple, no JVD Respiratory: diminished breath sounds, other (Bilateral coarse BS +) Gastrointestinal: soft, non-tender Musculoskeletal: other (Paraplegia ) Neurological: alert, awake, Results Result Diagram: 08/02/18 0610 08/02/18 0610 Medications Medication Current Medications Bisacodyl (Dulcolax Supp) 10 mg DAILY [place] Last administered on 08/01/18 08:49; Admin Dose 10 MG; Start 07/19/18 at 09:00 Multivitamins Therapeutic (Theragran) 1 tab DAILY GTB Last administered on 08/02/18 09:23; Admin Dose 1 TAB; Start 07/19/18 at 09:00 Zinc Sulfate (Zinc Sulfate) 220 mg DAILY GTB Last administered on 08/02/18 09:23; Admin Dose 220 MG; Start 07/19/18 at 09:00 IV Flush (NS 3 ml) 3 ml PER PROTOCOL IV ; Start 07/18/18 at 18:30 Ondansetron HCl (Zofran Inj) 4 mg Q6H PRN IV NAUSEA AND/OR VOMITING Last administered on 07/23/18 21:38; Admin Dose 4 MG; Start 07/18/18 at 18:30 Albuterol (Proventil 0.083% (Neb)) 2.5 mg Q2H RESP THERAPY PRN NEB SHORTNESS OF BREATH Last administered on 08/01/18 10:58; Admin Dose 2.5 MG; Start 07/18/18 at 18:30 Ipratropium [place] (Atrovent 0.02% (Neb)) 0.5 mg Q2H RESP THERAPY PRN NEB SHORTNESS OF BREATH Last administered on 08/01/18 04:44; Admin Dose 0.5 MG; Start 07/18/18 at 18:30 Hydromorphone HCl (Dilaudid) 0.5 mg Q4H PRN IV PAIN LEVEL 7-10 Last administered on 08/03/18 05:29; Admin Dose 0.5 MG; Start 07/18/18 at 18:30 Acetaminophen (Tylenol Liquid) 650 mg Q6H PRN GTB PAIN LEVEL 1-3 OR FEVER Last administered on 07/24/18 12:05; Admin Dose 650 MG; Start 07/19/18 at 10:30 Acetaminophen/ Hydrocodone Bitart ([place] (5/325)) 1 tab Q6H PRN GTB PAIN LEVEL 4-6 Last administered on 08/01/18 09:00; Admin Dose 1 TAB; Start 07/19/18 at 12:30 Docusate Sodium (Colace Liquid Cup) 100 mg Q12 PRN GTB CONSTIPATION Last administered on 07/27/18 09:25; Admin Dose 100 MG; Start 07/19/18 at 08:00 Docusate Sodium (Colace Liquid Cup) 100 mg QHS GTB Last administered on 9at 20:35; Admin Dose 100 MG; Start 07/19/18 at 21:00 IV Flush (NS 10 ml) 10 ml PRN PRN IV FLUSH LINE; Start 07/19/18 at 18:30 Levetiracetam (Keppra Liquid) 500 mg Q12 GTB Last administered on 08/02/18 20:35; Admin Dose 500 MG; Start 07/20/18 at 21:00 Mupirocin (Bactroban) 1 applic BID TOP Last administered on 08/02/18 20:36; Admin Dose 1 APPLIC; Start 07/21/18 at 21:00 Sodium Hypochlorite (Dakins Diluted ()) 1 applic BID TP Last administered on 08/02/18 20:36; Admin Dose 1 APPLIC; Start 07/22/18 at 09:00 Collagenase (Santyl) 1 applic BID TOP Last administered on 08/02/18 20:36; A dmin Dose 1 APPLIC; Start 07/22/18 at 09:00 Famotidine (Pepcid Iv) 20 mg BID IV Last administered on 08/02/18 20:35; Admin Dose 20 MG; Start 07/23/18 at 21:00 Epoetin Prince-epbx (Retacrit (Non-Esrd)) 10,000 unit MoWeFr@1700 [place] Last administered on 08/01/18 17:41; Admin Dose 10,000 UNIT; Start 07/23/18 at 18:30 Metoclopramide HCl (Reglan) 5 mg TID IV Last administered on 08/02/18 20:35; Admin Dose 5 MG; Start 07/24/18 at 09:00 Quetiapine Fumarate (Seroquel) 75 mg BID GTB Last administered on 08/02/18 20:35; Admin Dose 75 MG; Start 07/29/18 at 21:00 Lubiprostone (Amitiza) 24 mcg BID PO Last administered on 6/27/19at 20:35; Admin Dose 24 MCG; Start 07/30/18 at 21:00 Bisacodyl (Dulcolax Supp) 10 mg DAILY PRN [place] CONSTIPATION; Start 07/31/18 at 13:30 Alteplase, Recombinant (Cathflo (Activase)) 2 mg MAY REPEAT X1 PRN CATHETER IF CATHETER REMAINS OCCULUDED Last administered on 08/02/18at 15:54; Admin Dose 2 MG; Start 08/02/18 at 14:30 TIARA CISNEROS MD Aug 03, 2018 07:35
[2018-08-03] MEDS: BISACODYL 10 MG SUPP PR SCH (09:00)
[2018-08-03] MEDS: MULTIVITAMINS THERAPEUTIC TAB GTB SCH (09:24)
[2018-08-03] MEDS: QUETIAPINE 25 MG TAB GTB SCH ×2 (09:24→20:49)
[2018-08-03] MEDS: LEVETIRACETAM (100 MG/ML) 5ML CUP GTB SCH ×2 (09:24→20:49)
[2018-08-03] MEDS: ZINC SULFATE 220 MG CAP GTB SCH (09:25)
[2018-08-03] MEDS: MUPIROCIN 2% 22 GM OINT TOP SCH ×2 (09:25→20:51)
[2018-08-03] MEDS: METOCLOPRAMIDE 10 MG INJ IV SCH ×3 (09:25→20:48)
[2018-08-03] MEDS: LUBIPROSTONE 24 MCG CAP PO SCH ×2 (09:25→20:49)
[2018-08-03] MEDS: FAMOTIDINE 20 MG INJ IV SCH ×2 (09:25→20:48)
[2018-08-03] MEDS: COLLAGENASE 5 GM (UD JAR) TOP SCH ×2 (09:25→20:49)
[2018-08-03] MEDS: DAKINS 0.0125%(1/40) 473 ML SOLUTION TP SCH ×2 (09:26→20:51)
[2018-08-03] MEDS: BALSAM PERU/CASTOR OIL 60 GM TUBE TOP SCH ×2 (09:26→20:51)
--- NOTE | 2018-08-03 10:03 | PN ---
Date/Time of Note Date/Time of Note DATE: 08/03/18 TIME: 10:01 Assessment/Plan VTE Prophylaxis Risk score (from Ns)>0 risk: 7 [place]CD applied [place]from [facility] [place] SCD contraindicated: other Pharmacological prophylaxis: other Pharm contraindication: other Lines/Catheters IV Catheter Type (from [facility]): PICC Line Central line still needed: Yes Urinary Cath still in place: Yes Reason Cath still needed: urinary retention Assessment/Plan Assessment/Plan - Hypernatremia, continue free water with GT, IVF with D5W. Dr. Barker is following in nephrology consultation. - Large tracheal opening, s/p evaluation by Dr Woodruff in ENT consultation with recommendation to transfer to tertiary care center for free flap closure. - Anemia of chronic disease. S/p blood transfusion, continue Epogen. Stool for OB is neg. Dr. Borjas is following in gastroenterology consultation. - Ileus versus small bowel obstruction, resolved. - Sepsis with shock injury to possible healthcare acquired pneumonia and UTI, completed treatment with abx. Dr. Maciel is following in infection disease consultation. - Acute on chronic renal failure. Continue to monitor BUN and creatinine. - Ventilator dependent respiratory failure, continue pulmonary toilet and bronchodilators. Dr Ames is following in pulmonology consultation. - Neurogenic bladder with suprapubic catheter. - Dysphagia with gastrostomy tube. - Multiple decubitus ulcers present on admission. - Cervical spine injury with paraplegia. - Bipolar disorder with psychosis. - Hx of right nephrectomy - Hx of left renal nephrolithiasis, hx of lithotripsy with insertion and subsequent removal of ureteral JJ stent. Further recommendations based on clinical course. Plan of care discussed with Dr. Barreto. Result Diagram: 08/02/18 0610 08/02/18 0610 Subjective 24 Hr Interval Summary Free Text/Dictation nad afebrile Plan for transfer to tertiary care 2/2 large tracheostomy opening. dw saff Subjective hx not possible: pt non-verbal Constitutional: requiring IVF, requiring O2 Eyes: no complaints Respiratory: no complaints Cardiovascular: no complaints Gastrointestinal: no complaints Genitourinary: no complaints Exam/Review of Systems Exam Vitals Vital Signs Date Temp Pulse Resp B/P (MAP) Pulse Ox O2 O2 Flow FiO2 Time Delivery Rate 08/03/18 98.3 97 18 143/108 100 07:41 (120) 08/03/18 40 07:30 08/01/18 Mechanical 16:11 Ventilator Trach Collar Intake and Output 08/02/18 08/02/18 08/03/18 1515:00 23:00 07:00 IntakeIntake Total 930 ml 1018 ml OutputOutput Total 1100 ml 650 ml BalanceBalance -170 ml 368 ml Constitutional: alert, non-verbal, frail Psych: nl mood/affect Eyes: nl lids, nl sclera ENMT: nl external ears & nose Neck: non-tender, other (trach inatct) Respiratory: clear to auscultation Cardiovascular: nl pulses, other (s1s2) Gastrointestinal: soft, other (gt inatct) Musculoskeletal: muscle weakness, range of motion Extremities: normal pulses Neurological: confused, other (alert) Skin: other (deecubs) Medications Medication Current Medications Bisacodyl (Dulcolax Supp) 10 mg DAILY [place] Last administered on 08/01/18 08:49; Admin Dose 10 MG; Start 07/19/18 at 09:00 Multivitamins Therapeutic (Theragran) 1 tab DAILY GTB Last administered on 08/03/18 09:24; Admin Dose 1 TAB; Start 07/19/18 at 09:00 Zinc Sulfate (Zinc Sulfate) 220 mg DAILY GTB Last administered on 08/03/18 09:25; Admin Dose 220 MG; Start 07/19/18 at 09:00 IV Flush (NS 3 ml) 3 ml PER PROTOCOL IV ; Start 07/18/18 at 18:30 Ondansetron HCl (Zofran Inj) 4 mg Q6H PRN IV NAUSEA AND/OR VOMITING Last administered on 07/23/18at 21:38; Admin Dose 4 MG; Start 07/18/18 at 18:30 Albuterol (Proventil 0.083% (Neb)) 2.5 mg Q2H RESP THERAPY PRN NEB SHORTNESS OF BREATH Last administered on 08/01/18at 10:58; Admin Dose 2.5 MG; Start 07/18/18 at 18:30 Ipratropium [place] (Atrovent 0.02% (Neb)) 0.5 mg Q2H RESP THERAPY PRN NEB SHORTNESS OF BREATH Last administered on 08/01/18at 04:44; Admin Dose 0.5 MG; Start 07/18/18 at 18:30 Hydromorphone HCl (Dilaudid) 0.5 mg Q4H PRN IV PAIN LEVEL 7-10 Last administered on 08/03/18 09:27; Admin Dose 0.5 MG; Start 07/18/18 at 18:30 Acetaminophen (Tylenol Liquid) 650 mg Q6H PRN GTB PAIN LEVEL 1-3 OR FEVER Last administered on 07/24/18 12:05; Admin Dose 650 MG; Start 07/19/18 at 10:30 Acetaminophen/ Hydrocodone Bitart ([place] (5/325)) 1 tab Q6H PRN GTB PAIN LEVEL 4-6 Last administered on 08/01/18 09:00; Admin Dose 1 TAB; Start 07/19/18 at 12:30 Docusate Sodium (Colace Liquid Cup) 100 mg Q12 PRN GTB CONSTIPATION Last administered on 07/27/18 09:25; Admin Dose 100 MG; Start 07/19/18 at 08:00 Docusate Sodium (Colace Liquid Cup) 100 mg QHS GTB Last administered on 08/02/18 20:35; Admin Dose 100 MG; Start 07/19/18 at 21:00 IV Flush (NS 10 ml) 10 ml PRN PRN IV FLUSH LINE; Start 07/19/18 at 18:30 Levetiracetam (Keppra Liquid) 500 mg Q12 GTB Last administered on 08/03/18 09:24; Admin Dose 500 MG; Start 07/20/18 at 21:00 Mupirocin (Bactroban) 1 applic BID TOP Last administered on 08/03/18 09:25; Admin Dose 1 APPLIC; Start 07/21/18 at 21:00 Sodium Hypochlorite (Dakins Diluted (40)) 1 applic BID TP Last administered on 08/03/18 09:26; Admin Dose 1 APPLIC; Start 07/22/18 at 09:00 Collagenase (Santyl) 1 applic BID TOP Last administered on 08/03/18 09:25; Admin Dose 1 APPLIC; Start 07/22/18 at 09:00 Famotidine (Pepcid Iv) 20 mg BID IV Last administered on 08/03/18 09:25; Admin Dose 20 MG; Start 07/23/18 at 21:00 Epoetin Prince-epbx (Retacrit (Non-Esrd)) 10,000 unit MoWeFr@1700 [place] Last administered on 08/01/18at 17:41; Admin Dose 10,000 UNIT; Start 07/23/18 at 18:30 Metoclopramide HCl (Reglan) 5 mg TID IV Last administered on 08/03/18 09:25; Admin Dose 5 MG; Start 07/24/18 at 09:00 Quetiapine Fumarate (Seroquel) 75 mg BID GTB Last administered on 08/03/18 09: 24; Admin Dose 75 MG; Start 07/29/18 at 21:00 Lubiprostone (Amitiza) 24 mcg BID PO Last administered on 08/03/18 09:25; Admin Dose 24 MCG; Start 07/30/18 at 21:00 Bisacodyl (Dulcolax Supp) 10 mg DAILY PRN [place] CONSTIPATION; Start 07/31/18 at 13:30 Alteplase, Recombinant (Cathflo (Activase)) 2 mg MAY REPEAT X1 PRN CATHETER IF CATHETER REMAINS OCCULUDED Last administered on 08/02/18at 15:54; Admin Dose 2 MG; Start 08/02/18 at 14:30 NAE VELAZCO Aug 03, 2018 10:03
--- NOTE | 2018-08-03 11:17 | CONS ---
Assessment/Plan Assessment/Plan Assessment/Plan (Daily) Assessment/Plan (Daily) Hospital Course (Demo Recall) 42 year old paraplegic male presents from SNF for sepsis secondary to pnuemonia and UTI was found to ileus vs SBO on KUB with one episode of coffee ground vomit. 1. Ileus vs SBO -resolved 2. Anemia, acute on chronic -neg FOB 3. Acute on chronic renal failure -h/o rt nephrectomy -improving 4. Sepsis secondary to pnuemonia and UTI 5. Pneumonia 6. UTI -Acinetobacter Baumannii 7. Paraplegia secondary to cervical spine injury, patient is a wasting of the muscles both of upper and lower extremity 8. Vent dependent respiratory failure 9. Dysphagia, s/p g tube 10. Bipolar disorder 11. Leakage of air from the tracheostomy site Plan Increase feeding as per dietitian recommendation Continue Pepcid and reglan Continue tube feeds. Will increase the feeding to 40 cc/h ENT evaluation for the leakage of air from the tracheostomy site We will monitor hematocrit it dropped down to 28 today no evidence of active bleeding Amitiza 24 mcg BID Consultation Date/Type/Reason Admit Date/Time Jul 18, 2018 at 13:59 Initial Consult Date 07/18/18 Requesting Provider: JOSÉ ANTONIO MIRZA MD Date/Time of Note DATE: 08/03/18 TIME: 11:16 24 HR Interval Summary Constitutional: no complaints, improved Exam/Review of Systems Exam Vitals Vital Signs Date Temp Pulse Resp B/P (MAP) Pulse Ox O2 O2 Flow FiO2 Time Delivery Rate 08/03/18 98.3 97 18 143/108 100 07:41 (120) 08/03/18 40 07:30 08/01/18 Mechanical 16:11 Ventilator Trach Collar Intake and Output 08/02/18 08/02/18 08/03/18 1515:00 23:00 07:00 IntakeIntake Total 930 ml 1018 ml OutputOutput Total 1100 ml 650 ml BalanceBalance -170 ml 368 ml ENMT: intubated Neck: non-tender Gastrointestinal: nl liver, spleen Results Result Diagram: 08/02/18 0610 08/02/18 0610 Medications Medication Current Medications Bisacodyl (Dulcolax Supp) 10 mg DAILY [place] Last administered on 08/01/18at 08:49; Admin Dose 10 MG; Start 07/19/18 at 09:00 Multivitamins Therapeutic (Theragran) 1 tab DAILY GTB Last administered on 08/03/18 09:24; Admin Dose 1 TAB; Start 07/19/18 at 09:00 Zinc Sulfate (Zinc Sulfate) 220 mg DAILY GTB Last administered on 08/03/18 09:25; Admin Dose 220 MG; Start 07/19/18 at 09:00 IV Flush (NS 3 ml) 3 ml PER PROTOCOL IV ; Start 07/18/18 at 18:30 Ondansetron HCl (Zofran Inj) 4 mg Q6H PRN IV NAUSEA AND/OR VOMITING Last administered on 07/23/18 21:38; Admin Dose 4 MG; Start 07/18/18 at 18:30 Albuterol (Proventil 0.083% (Neb)) 2.5 mg Q2H RESP THERAPY PRN NEB SHORTNESS OF BREATH Last administered on 08/01/18 10:58; Admin Dose 2.5 MG; Start 07/18/18 at 18:30 Ipratropium [place] (Atrovent 0.02% (Neb)) 0.5 mg Q2H RESP THERAPY PRN NEB SHORTNESS OF BREATH Last administered on 08/01/18 04:44; Admin Dose 0.5 MG; Start 07/18/18 at 18:30 Hydromorphone HCl (Dilaudid) 0.5 mg Q4H PRN IV PAIN LEVEL 7-10 Last administered on 08/03/18 09:27; Admin Dose 0.5 MG; Start 07/18/18 at 18:30 Acetaminophen (Tylenol Liquid) 650 mg Q6H PRN GTB PAIN LEVEL 1-3 OR FEVER Last administered on 07/24/18 12:05; Admin Dose 650 MG; Start 07/19/18 at 10:30 Acetaminophen/ Hydrocodone Bitart ([place] (5/325)) 1 tab Q6H PRN GTB PAIN LEVEL 4-6 Last administered on 08/01/18 09:00; Admin Dose 1 TAB; Start 07/19/18 at 12:30 Docusate Sodium (Colace Liquid Cup) 100 mg Q12 PRN GTB CONSTIPATION Last administered on 07/27/18 09:25; Admin Dose 100 MG; Start 07/19/18 at 08:00 Docusate Sodium (Colace Liquid Cup) 100 mg QHS GTB Last administered on 08/02/18 20:35; Admin Dose 100 MG; Start 07/19/18 at 21:00 IV Flush (NS 10 ml) 10 ml PRN PRN IV FLUSH LINE; Start 07/19/18 at 18:30 Levetiracetam (Keppra Liquid) 500 mg Q12 GTB Last administered on 08/03/18 09:24; Admin Dose 500 MG; Start 07/20/18 at 21:00 Mupirocin (Bactroban) 1 applic BID TOP Last administered on 08/03/18 09:25; Admin Dose 1 APPLIC; Start 07/21/18 at 21:00 Sodium Hypochlorite (Dakins Diluted ()) 1 applic BID TP Last administered on 08/03/18 09:26; Admin Dose 1 APPLIC; Start 07/22/18 at 09:00 Collagenase (Santyl) 1 applic BID TOP Last administered on 08/03/18 09:25; Admin Dose 1 APPLIC; Start 07/22/18 at 09:00 Famotidine (Pepcid Iv) 20 mg BID IV Last administered on 08/03/18 09:25; Admin Dose 20 MG; Start 07/23/18 at 21:00 Epoetin Prince-epbx (Retacrit (Non-Esrd)) 10,000 unit MoWeFr@1700 [place] Last administered on 08/01/18 17:41; Admin Dose 10,000 UNIT; Start 07/23/18 at 18:30 Metoclopramide HCl (Reglan) 5 mg TID IV Last administered on 08/03/18 09:25; Admin Dose 5 MG; Start 07/24/18 at 09:00 Quetiapine Fumarate (Seroquel) 75 mg BID GTB Last administered on 08/03/18 09:24; Admin Dose 75 MG; Start 07/29/18 at 21:00 Lubiprostone (Amitiza) 24 mcg BID PO Last administered on 08/03/18 09:25; Admin Dose 24 MCG; Start 07/30/18 at 21:00 Bisacodyl (Dulcolax Supp) 10 mg DAILY PRN [place] CONSTIPATION; Start 07/31/18 at 13:30 Alteplase, Recombinant (Cathflo (Activase)) 2 mg MAY REPEAT X1 PRN CATHETER IF CATHETER REMAINS OCCULUDED Last administered on 08/02/18at 15:54; Admin Dose 2 MG; Start 08/02/18 at 14:30 OPAL STRATTON MD Aug 03, 2018 11:17
--- NOTE | 2018-08-03 12:52 | PN ---
DATE: 08/03/2018 SUBJECTIVE: The patient is resting comfortably with ventilator support. He is awake but becomes non cooperative easily, difficult to examine him. PHYSICAL EXAMINATION: VITAL SIGNS: Show temperature 98.3, blood pressure 143/108, pulse rate 97, respirations 18, pulse ox imetry 100% saturation. NECK: Tracheal secretions are clear, not much, no bleeding seen. Tracheostomy tube is in place and seems to be functioning satisfactorily. HEART: Regular sinus rhythm. CHEST: Breath sounds are diminished in the lower lung tierney with a few intermittent rales and rhonc hi. ABDOMEN: Soft. Tolerating gastrostomy tube feedings. Normal bowel sounds. EXTREMITIES: Show paraplegia, no edema. LABORATORY DATA: No lab results today. He has been off antibiotics, stopped by the infectious disease medical record consultant. IMPRESSION: 1. Chronic ventilator dependent respiratory failure. 2. Resolving sepsis. 3. Chronic kidney disease with acute kidney injury, improving. 4. Chronic anemia. 5. History of nephrolithiasis. 6. Paraplegia. 7. History of spinal cord injury in the past. 8. History of bipolar disorder. RECOMMENDATIONS: 1. Continue long-term ventilator support. 2. Continue bronchodilator inhalation therapy to clear the secretions and improve bronchial hygiene. 3. Continue hydration. 4. Discussed with Dr. Barreto, primary physician, about tracheostomy problems. Apparently, the yovana e it service delivery manager is trying to refer him to tertiary care center [facility] as suggested by the j2ee consultant for his tracheostomy problems. Dictated By: HUMBERTO PEREZ MD SR/NTS Conf#: [id number] DID#: [id number] CC: JOSÉ ANTONIO BARRETO MD;*EndCC*
[2018-08-03] MEDS: IPRATROPIUM (NEB) 0.5 MG/2.5 ML AMP NEB PRN (14:38)
--- NOTE | 2018-08-03 15:00 | CONS ---
Assessment/Plan Assessment/Plan Hospital Course (Demo Recall) Alert, no fevers Antimicrobials: none Microbiology: Urine culture grew Acinetobacter susceptible to gentamicin tobramycin and Bactrim, blood cultures negative===> treated Allergies: Tetracyclines Indwelling: Trach, PEG, PICC line, suprapubic catheter Physical examination: Chronically ill-appearing wasted middle-aged man who is awake in no distress. Head atraumatic normocephalic sclera nonicteric vehicle mucosa dry neck is supple tracheostomy present chest rise symmetrical breath sounds diminished the bases. Heart: S1-S2. Abdomen soft bowel sounds present. Extremities wasted contractured Assessment: 1. Status post septic shock 2. Recurrent UTI/acute pyelonephritis, treated 3. Acute on chronic respiratory failure 4. Acute on chronic kidney disease 5. Incomplete quadriplegia 6. Anemia and thrombocytopenia 7. History of left breast nephrectomy 8. Multiple chronic decubitus ulcers 9. Diarrhea, rule out C. difficile 10. MRSA colonization of the naris Plan: Remains stable, continue observing off antibiotics, ENT rec-s noted Consultation Date/Type/Reason Admit Date/Time Jul 18, 2018 at 13:59 Initial Consult Date 07/18/18 Type of Consult id Requesting Provider: JOSÉ ANTONIO MIRZA MD Date/Time of Note DATE: 08/03/18 TIME: 15:00 Exam/Review of Systems Exam Vitals Vital Signs Date Temp Pulse Resp B/P (MAP) Pulse Ox O2 O2 Flow FiO2 Time Delivery Rate 08/03/18 122 34 100 40 12:41 08/03/18 98.7 123/91 11:44 (102) 08/01/18 Mechanical 16:11 Ventilator Trach Collar Intake and Output 08/02/18 08/02/18 08/03/18 1515:00 23:00 07:00 IntakeIntake Total 930 ml 1018 ml OutputOutput Total 1100 ml 650 ml BalanceBalance -170 ml 368 ml Results Result Diagram: 08/02/18 0610 08/02/18 0610 Medications Medication Current Medications Bisacodyl (Dulcolax Supp) 10 mg DAILY [place] Last administered on 08/01/18at 08:49; Admin Dose 10 MG; Start 07/19/18 at 09:00 Multivitamins Therapeutic (Theragran) 1 tab DAILY GTB Last administered on 08/03/18at 09:24; Admin Dose 1 TAB; Start 07/19/18 at 09:00 Zinc Sulfate (Zinc Sulfate) 220 mg DAILY GTB Last administered on 08/03/18 09:25; Admin Dose 220 MG; Start 07/19/18 at 09:00 IV Flush (NS 3 ml) 3 ml PER PROTOCOL IV ; Start 07/18/18 at 18:30 Ondansetron HCl (Zofran Inj) 4 mg Q6H PRN IV NAUSEA AND/OR VOMITING Last administered on 07/23/18 21:38; Admin Dose 4 MG; Start 07/18/18 at 18:30 Albuterol (Proventil 0.083% (Neb)) 2.5 mg Q2H RESP THERAPY PRN NEB SHORTNESS OF BREATH Last administered on 08/01/18 10:58; Admin Dose 2.5 MG; Start 07/18/18 at 18:30 Ipratropium [place] (Atrovent 0.02% (Neb)) 0.5 mg Q2H RESP THERAPY PRN NEB SHORTNESS OF BREATH Last administered on 08/03/18 14:38; Admin Dose 0.5 MG; St art 07/18/18 at 18:30 Hydromorphone HCl (Dilaudid) 0.5 mg Q4H PRN IV PAIN LEVEL 7-10 Last administer ed on 08/03/18 13:25; Admin Dose 0.5 MG; Start 07/18/18 at 18:30 Acetaminophen (Tylenol Liquid) 650 mg Q6H PRN GTB PAIN LEVEL 1-3 OR FEVER Last administered on 07/24/18 12:05; Admin Dose 650 MG; Start 07/19/18 at 10:30 Acetaminophen/ Hydrocodone Bitart ([place] (5/325)) 1 tab Q6H PRN GTB PAIN LEVEL 4-6 Last administered on 08/01/18 09:00; Admin Dose 1 TAB; Start 07/19/18 at 12:30 Docusate Sodium (Colace Liquid Cup) 100 mg Q12 PRN GTB CONSTIPATION Last administered on 07/27/18 09:25; Admin Dose 100 MG; Start 07/19/18 at 08:00 Docusate Sodium (Colace Liquid Cup) 100 mg QHS GTB Last administered on 08/02/18 20:35; Admin Dose 100 MG; Start 07/19/18 at 21:00 IV Flush (NS 10 ml) 10 ml PRN PRN IV FLUSH LINE; Start 07/19/18 at 18:30 Levetiracetam (Keppra Liquid) 500 mg Q12 GTB Last administered on 08/03/18 09:24; Admin Dose 500 MG; Start 07/20/18 at 21:00 Mupirocin (Bactroban) 1 applic BID TOP Last administered on 08/03/18 09:25; Admin Dose 1 APPLIC; Start 07/21/18 at 21:00 Sodium Hypochlorite (Dakins Diluted ()) 1 applic BID TP Last administered on 08/03/18 09:26; Admin Dose 1 APPLIC; Start 07/22/18 at 09:00 Collagenase (Santyl) 1 applic BID TOP Last administered on 08/03/18 09:25; Admin Dose 1 APPLIC; Start 07/22/18 at 09:00 Famotidine (Pepcid Iv) 20 mg BID IV Last administered on 08/03/18 09:25; Admin Dose 20 MG; Start 07/23/18 at 21:00 Epoetin [place]-epbx (Retacrit (Non-Esrd)) 10,000 unit MoWeFr@1700 [place] Last administered on 08/01/18 17:41; Admin Dose 10,000 UNIT; Start 07/23/18 at 18:30 Metoclopramide HCl (Reglan) 5 mg TID IV Last administered on 08/03/18 13:25; Admin Dose 5 MG; Start 07/24/18 at 09:00 Quetiapine Fumarate (Seroquel) 75 mg BID GTB Last administered on 08/03/18 09:24; Admin Dose 75 MG; Start 07/29/18 at 21:00 Lubiprostone (Amitiza) 24 mcg BID PO Last administered on 08/03/18 09:25; Admin Dose 24 MCG; Start 07/30/18 at 21:00 Bisacodyl (Dulcolax Supp) 10 mg DAILY PRN [place] CONSTIPATION; Start 07/31/18 at 13:30 Alteplase, Recombinant (Cathflo (Activase)) 2 mg MAY REPEAT X1 PRN CATHETER IF CATHETER REMAINS OCCULUDED Last administered on 6/27/19at 15:54; Admin Dose 2 MG; Start 08/02/18 at 14:30 REGINALDO CHERY NP Aug 03, 2018 15:00
[2018-08-03] MEDS: EPOETIN ALFA-EPBX (NON-ESRD 10,000 UNIT/ML VIAL SC SCH (17:28)
[2018-08-03] MEDS: DOCUSATE SODIUM 10 MG/ML (10ML CUP) GTB PRN (20:52)
[2018-08-03] MEDS: HYDROCODONE/APAP (5/325) TAB GTB PRN (20:52)
[2018-08-03] MEDS: DOCUSATE SODIUM 10 MG/ML (10ML CUP) GTB SCH (20:53)
[2018-08-04] VITALS (17 sets, daily range): BP systolic 118–146; BP diastolic 92–102; PULSE 92–118; RESP 19–37
[2018-08-04] MEDS: HYDROmorphONE 0.5 MG/0.5 ML SYG IV PRN ×5 (03:22→21:49)
[2018-08-04] MEDS: HYDROCODONE/APAP (5/325) TAB GTB PRN ×2 (04:44→12:13)
--- NOTE | 2018-08-04 08:53 | CONS ---
Assessment/Plan Assessment/Plan Assessment/Plan (Daily) 1. Acute kidney injury on CKD IV due to severe prerenal azotemia 2. Septic shock s/p levophed in ICU 3. PNA concerned about HCAP 4. UTI with Urine Cx growing Acinetobacter 5. 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 Ventilator dependant respiratory failure s/p Tracheostomy 7. S/p G tube placement 8. 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 H/o Right nephrectomy with left Nephrolithiasis 10 .H/o Bipolar disorder 12. Severe Anemia possibly due to Combination of Anemia of CKD + acute blood loss anemia s/p PRBC transfusion during this admission Plan: BUN/Cr 41/1.58, Na 153 on last labs, no labs today to review yet s/p PRBC transfusion during this admission, continue Epogen 16391 units SQ MWF s/p IV abx for UTI, now off antibiotic, renally dose all medications and monitor electrolytes, replace as needed We will continue to follow up Consultation Date/Type/Reason Admit Date/Time Jul 18, 2018 at 13:59 Initial Consult Date 07/18/18 Type of Consult NEPHROLOGY Requesting Provider: JOSÉ ANTONIO MIRZA MD Date/Time of Note DATE: 08/04/18 TIME: 08:53 Exam/Review of Systems Exam Vitals Vital Signs Date Temp Pulse Resp B/P (MAP) Pulse Ox O2 O2 Flow FiO2 Time Delivery Rate 08/04/18 98.3 92 19 146/101 100 07:40 (116) 08/04/18 40 05:29 08/01/18 Mechanical 16:11 Ventilator Trach Collar Intake and Output 08/03/18 08/03/18 08/04/18 1515:00 23:00 07:00 IntakeIntake Total 1390 ml 430 ml OutputOutput Total 1100 ml 550 ml BalanceBalance 290 ml -120 ml Exam Constitutional: non-verbal, awake, alert, no acute distress Head: normocephalic ENMT: other (+ tracheostomy ) Neck: supple, no JVD Respiratory: diminished breath sounds, other (Bilateral coarse BS +) Gastrointestinal: soft, non-tender Musculoskeletal: other (Paraplegia ) Neurological: alert, awake, Results Result Diagram: 08/02/18 0610 08/02/18 0610 Medications Medication Current Medications Bisacodyl (Dulcolax Supp) 10 mg DAILY [place] Last administered on 08/01/18 08:49; Admin Dose 10 MG; Start 07/19/18 at 09:00 Multivitamins Therapeutic (Theragran) 1 tab DAILY GTB Last administered on 08/03/18 09:24; Admin Dose 1 TAB; Start 07/19/18 at 09:00 Zinc Sulfate (Zinc Sulfate) 220 mg DAILY GTB Last administered on 08/03/18 09:25; Admin Dose 220 MG; Start 07/19/18 at 09:00 IV Flush (NS 3 ml) 3 ml PER PROTOCOL IV ; Start 07/18/18 at 18:30 Ondansetron HCl (Zofran Inj) 4 mg Q6H PRN IV NAUSEA AND/OR VOMITING Last administered on 07/23/18 21:38; Admin Dose 4 MG; Start 07/18/18 at 18:30 Albuterol (Proventil 0.083% (Neb)) 2.5 mg Q2H RESP THERAPY PRN NEB SHORTNESS OF BREATH Last administered on 08/01/18 10:58; Admin Dose 2.5 MG; Start 07/18/18 at 18:30 Ipratropium [place] (Atrovent 0.02% (Neb)) 0.5 mg Q2H RESP THERAPY PRN NEB SHORTNESS OF BREATH Last administered on 08/03/18 14:38; Admin Dose 0.5 MG; Start 07/18/18 at 18:30 Hydromorphone HCl (Dilaudid) 0.5 mg Q4H PRN IV PAIN LEVEL 7-10 Last administered on 08/04/18 03:22; Admin Dose 0.5 MG; Start 07/18/18 at 18:30 Acetaminophen (Tylenol Liquid) 650 mg Q6H PRN GTB PAIN LEVEL 1-3 OR FEVER Last administered on 07/24/18 12:05; Admin Dose 650 MG; Start 07/19/18 at 10:30 Acetaminophen/ Hydrocodone Bitart ([place] (5/325)) 1 tab Q6H PRN GTB PAIN LEVEL 4-6 Last administered on 08/04/18 04:44; Admin Dose 1 TAB; Start 07/19/18 at 12:30 Docusate Sodium (Colace Liquid Cup) 100 mg Q12 PRN GTB CONSTIPATION Last administered on 07/27/18 09:25; Admin Dose 100 MG; Start 07/19/18 at 08:00 Docusate Sodium (Colace Liquid Cup) 100 mg QHS GTB Last administered on 08/02/18 20:35; Admin Dose 100 MG; Start 07/19/18 at 21:00 IV Flush (NS 10 ml) 10 ml PRN PRN IV FLUSH LINE; Start 07/19/18 at 18:30 Levetiracetam (Keppra Liquid) 500 mg Q12 GTB Last administered on 08/03/18 20:49; Admin Dose 500 MG; Start 07/20/18 at 21:00 Mupirocin (Bactroban) 1 applic BID TOP Last administered on 08/03/18 20:51; Admin Dose 1 APPLIC; Start 07/21/18 at 21:00 Sodium Hypochlorite (Dakins Diluted ()) 1 applic BID TP Last administered on 08/03/18 20:51; Admin Dose 1 APPLIC; Start 07/22/18 at 09:00 Collagenase (Santyl) 1 applic BID TOP Last administered on 08/03/18 20:49; Admin Dose 1 APPLIC; Start 07/22/18 at 09:00 Famotidine (Pepcid Iv) 20 mg BID IV Last administered on 08/03/18 20:48; Admin Dose 20 MG; Start 07/23/18 at 21:00 Epoetin Prince-epbx (Retacrit (Non-Esrd)) 10,000 unit MoWeFr@1700 SC Last administered on 08/03/18 17:28; Admin Dose 10,000 UNIT; Start 07/23/18 at 18:30 Metoclopramide HCl (Reglan) 5 mg TID IV Last administered on 08/03/18 20:48; Admin Dose 5 MG; Start 07/24/18 at 09:00 Quetiapine Fumarate (Seroquel) 75 mg BID GTB Last administered on 08/03/18 20:49; Admin Dose 75 MG; Start 07/29/18 at 21:00 Lubiprostone (Amitiza) 24 mcg BID PO Last administered on 08/03/18 20:49; Admin Dose 24 MCG; Start 07/30/18 at 21:00 Bisacodyl (Dulcolax Supp) 10 mg DAILY PRN [place] CONSTIPATION; Start 07/31/18 at 13:30 Alteplase, Recombinant (Cathflo (Activase)) 2 mg MAY REPEAT X1 PRN CATHETER IF CATHETER REMAINS OCCULUDED Last administered on 08/02/18at 15:54; Admin Dose 2 MG; Start 08/02/18 at 14:30 TIARA CISNEROS MD Aug 04, 2018 08:53
[2018-08-04] MEDS: METOCLOPRAMIDE 10 MG INJ IV SCH ×3 (09:09→22:12)
[2018-08-04] MEDS: FAMOTIDINE 20 MG INJ IV SCH ×2 (09:09→22:12)
[2018-08-04] MEDS: MULTIVITAMINS THERAPEUTIC TAB GTB SCH (09:15)
[2018-08-04] MEDS: LEVETIRACETAM (100 MG/ML) 5ML CUP GTB SCH ×2 (09:15→22:12)
[2018-08-04] MEDS: ZINC SULFATE 220 MG CAP GTB SCH (09:15)
[2018-08-04] MEDS: QUETIAPINE 25 MG TAB GTB SCH ×2 (09:15→22:11)
[2018-08-04] MEDS: COLLAGENASE 5 GM (UD JAR) TOP SCH ×2 (09:16→22:12)
[2018-08-04] MEDS: BISACODYL 10 MG SUPP PR SCH (09:16)
[2018-08-04] MEDS: BALSAM PERU/CASTOR OIL 60 GM TUBE TOP SCH ×2 (09:16→22:13)
[2018-08-04] MEDS: LUBIPROSTONE 24 MCG CAP PO SCH ×2 (09:16→22:11)
[2018-08-04] MEDS: DAKINS 0.0125%(1/40) 473 ML SOLUTION TP SCH ×2 (09:17→22:13)
[2018-08-04] MEDS: MUPIROCIN 2% 22 GM OINT TOP SCH ×2 (09:25→22:13)
--- NOTE | 2018-08-04 10:13 | PN ---
Date/Time of Note Date/Time of Note DATE: 08/04/18 TIME: 10:13 Assessment/Plan VTE Prophylaxis Risk score (from Ns)>0 risk: 9 SCD applied (from Ns): Yes Pharmacological prophylaxis: LMWH Lines/Catheters IV Catheter Type (from Nrsg): PICC Line Central line still needed: Yes Urinary Cath still in place: Yes Reason Cath still needed: skin wounds contaminated by urine Assessment/Plan Hospital Course - Hypernatremia, continue free water with GT, IVF with D5W. Dr. Barker is following in nephrology consultation. - Large tracheal opening, s/p evaluation by Dr Woodruff in ENT consultation with recommendation to transfer to tertiary care center for free flap closure. - Anemia of chronic disease. S/p blood transfusion, continue Epogen. Stool for OB is neg. Dr. Borjas is following in gastroenterology consultation. - Ileus versus small bowel obstruction, resolved. - Sepsis with shock injury to possible healthcare acquired pneumonia and UTI, completed treatment with abx. Dr. Maciel is following in infection disease consultation. - Acute on chronic renal failure. Continue to monitor BUN and creatinine. - Ventilator dependent respiratory failure, continue pulmonary toilet and bronchodilators. Dr Ames is following in pulmonology consultation. - Neurogenic bladder with suprapubic catheter. - Dysphagia with gastrostomy tube. - Multiple decubitus ulcers present on admission. - Cervical spine injury with paraplegia. - Bipolar disorder with psychosis. - Hx of right nephrectomy - Hx of left renal nephrolithiasis, hx of lithotripsy with insertion and subsequent removal of ureteral JJ stent. Result Diagram: 08/02/18 0610 08/02/18 0610 Subjective 24 Hr Interval Summary Free Text/Dictation Patient resting, on vent Exam/Review of Systems Exam Vitals Vital Signs Date Temp Pulse Resp B/P (MAP) Pulse Ox O2 O2 Flow FiO2 Time Delivery Rate 08/04/18 98.3 92 19 146/101 100 07:40 (116) 08/04/18 40 05:29 08/01/18 Mechanical 16:11 Ventilator Trach Collar Intake and Output 08/03/18 08/03/18 08/04/18 1515:00 23:00 07:00 IntakeIntake Total 1390 ml 430 ml OutputOutput Total 1100 ml 550 ml BalanceBalance 290 ml -120 ml Constitutional: well developed Head: normocephalic, atraumatic Neck: supple Respiratory: diminished breath sounds Cardiovascular: regular rate and rhythm Gastrointestinal: soft, non-tender Extremities: normal pulses Medications Medication Current Medications Bisacodyl (Dulcolax Supp) 10 mg DAILY [place] Last administered on 08/04/18 09:16; Admin Dose 10 MG; Start 07/19/18 at 09:00 Multivitamins Therapeutic (Theragran) 1 tab DAILY GTB Last administered on 08/04/18 09:15; Admin Dose 1 TAB; Start 07/19/18 at 09:00 Zinc Sulfate (Zinc Sulfate) 220 mg DAILY GTB Last administered on 08/04/18 09:15; Admin Dose 220 MG; Start 07/19/18 at 09:00 IV Flush (NS 3 ml) 3 ml PER PROTOCOL IV ; Start 07/18/18 at 18:30 Ondansetron HCl (Zofran Inj) 4 mg Q6H PRN IV NAUSEA AND/OR VOMITING Last administered on 07/23/18 21:38; Admin Dose 4 MG; Start 07/18/18 at 18:30 Albuterol (Proventil 0.083% (Neb)) 2.5 mg Q2H RESP THERAPY PRN NEB SHORTNESS OF BREATH Last administered on 08/01/18 10:58; Admin Dose 2.5 MG; Start 07/18/18 at 18:30 Ipratropium [place] (Atrovent 0.02% (Neb)) 0.5 mg Q2H RESP THERAPY PRN NEB SHORTNESS OF BREATH Last administered on 08/03/18 14:38; Admin Dose 0.5 MG; Start 07/18/18 at 18:30 Hydromorphone HCl (Dilaudid) 0.5 mg Q4H PRN IV PAIN LEVEL 7-10 Last administered on 08/04/18 09:09; Admin Dose 0.5 MG; Start 07/18/18 at 18:30 Acetaminophen (Tylenol Liquid) 650 mg Q6H PRN GTB PAIN LEVEL 1-3 OR FEVER Last administered on 07/24/18 12:05; Admin Dose 650 MG; Start 07/19/18 at 10:30 Acetaminophen/ Hydrocodone Bitart ([place] (5/325)) 1 tab Q6H PRN GTB PAIN LEVEL 4-6 Last administered on 08/04/18 04:44; Admin Dose 1 TAB; Start 07/19/18 at 12:30 Docusate Sodium (Colace Liquid Cup) 100 mg Q12 PRN GTB CONSTIPATION Last administered on 07/27/18 09:25; Admin Dose 100 MG; Start 07/19/18 at 08:00 Docusate Sodium (Colace Liquid Cup) 100 mg QHS GTB Last administered on 08/02/18 20:35; Admin Dose 100 MG; Start 07/19/18 at 21:00 IV Flush (NS 10 ml) 10 ml PRN PRN IV FLUSH LINE; Start 07/19/18 at 18:30 Levetiracetam (Keppra Liquid) 500 mg Q12 GTB Last administered on 08/04/18 09:15; Admin Dose 500 MG; Start 07/20/18 at 21:00 Mupirocin (Bactroban) 1 applic BID TOP Last administered on 08/04/18 09:25; Admin Dose 1 APPLIC; Start 07/21/18 at 21:00 Sodium Hypochlorite (Dakins Diluted (1/40)) 1 applic BID TP Last administered on 08/04/18 09:17; Admin Dose 1 APPLIC; Start 07/22/18 at 09:00 Collagenase (Santyl) 1 applic BID TOP Last administered on 08/04/18 09:16; Admin Dose 1 APPLIC; Start 07/22/18 at 09:00 Famotidine (Pepcid Iv) 20 mg BID IV Last administered on 08/04/18 09:09; Admin Dose 20 MG; Start 07/23/18 at 21:00 Epoetin [place]-epbx (Retacrit (Non-Esrd)) 10,000 unit MoWeFr@1700 SC Last admin istered on 08/03/18 17:28; Admin Dose 10,000 UNIT; Start 07/23/18 at 18:30 Metoclopramide HCl (Reglan) 5 mg TID IV Last administered on 08/04/18 09:09; Admin Dose 5 MG; Start 07/24/18 at 09:00 Quetiapine Fumarate (Seroquel) 75 mg BID GTB Last administered on 08/04/18 09:15; Admin Dose 75 MG; Start 07/29/18 at 21:00 Lubiprostone (Amitiza) 24 mcg BID PO Last administered on 08/04/18at 09:16; Ad min Dose 24 MCG; Start 07/30/18 at 21:00 Bisacodyl (Dulcolax Supp) 10 mg DAILY PRN [place] CONSTIPATION; Start 07/31/18 at 13:30 Alteplase, Recombinant (Cathflo (Activase)) 2 mg MAY REPEAT X1 PRN CATHETER IF CATHETER REMAINS OCCULUDED Last administered on 08/02/18at 15:54; Admin Dose 2 MG; Start 08/02/18 at 14:30 DANAY MUIR Aug 04, 2018 10:13
--- NOTE | 2018-08-04 10:46 | CONS ---
Assessment/Plan Assessment/Plan Assessment/Plan (Daily) Assessment/Plan (Daily) Hospital Course (Demo Recall) 42 year old paraplegic male presents from SNF for sepsis secondary to pnuemonia and UTI was found to ileus vs SBO on KUB with one episode of coffee ground vomit. 1. Ileus vs SBO -resolved 2. Anemia, acute on chronic -neg FOB 3. Acute on chronic renal failure -h/o rt nephrectomy -improving 4. Sepsis secondary to pnuemonia and UTI 5. Pneumonia 6. UTI -Acinetobacter Baumannii 7. Paraplegia secondary to cervical spine injury, patient is a wasting of the muscles both of upper and lower extremity 8. Vent dependent respiratory failure 9. Dysphagia, s/p g tube 10. Bipolar disorder 11. Leakage of air from the tracheostomy site Plan Increase feeding as per dietitian recommendation Continue Pepcid and reglan Continue tube feeds. Will increase the feeding to 40 cc/h, patient is tolerating feeding at 40 cc/h ENT evaluation for the leakage of air from the tracheostomy site We will monitor hematocrit it dropped down to 28 today no evidence of active bleeding Amitiza 24 mcg BID Consultation Date/Type/Reason Admit Date/Time Jul 18, 2018 at 13:59 Initial Consult Date 07/18/18 Requesting Provider: JOSÉ ANTONIO MIRZA MD Date/Time of Note DATE: 08/04/18 TIME: 10:45 24 HR Interval Summary Constitutional: no complaints, improved Exam/Review of Systems Exam Vitals Vital Signs Date Temp Pulse Resp B/P (MAP) Pulse Ox O2 O2 Flow FiO2 Time Delivery Rate 08/04/18 98.3 92 19 146/101 100 07:40 (116) 08/04/18 40 05:29 08/01/18 Mechanical 16:11 Ventilator Trach Collar Intake and Output 08/03/18 08/03/18 08/04/18 1515:00 23:00 07:00 IntakeIntake Total 1390 ml 430 ml OutputOutput Total 1100 ml 550 ml BalanceBalance 290 ml -120 ml Constitutional: alert, oriented ENMT: intubated Cardiovascular: nl pulses Gastrointestinal: soft, nl liver, spleen, non-tender Results Result Diagram: 08/02/18 0610 08/02/18 0610 Medications Medication Current Medications Bisacodyl (Dulcolax Supp) 10 mg DAILY [place] Last administered on 08/04/18 09:16; Admin Dose 10 MG; Start 07/19/18 at 09:00 Multivitamins Therapeutic (Theragran) 1 tab DAILY GTB Last administered on 08/04/18 09:15; Admin Dose 1 TAB; Start 07/19/18 at 09:00 Zinc Sulfate (Zinc Sulfate) 220 mg DAILY GTB Last administered on 08/04/18 09:15; Admin Dose 220 MG; Start 07/19/18 at 09:00 IV Flush (NS 3 ml) 3 ml PER PROTOCOL IV ; Start 07/18/18 at 18:30 Ondansetron HCl (Zofran Inj) 4 mg Q6H PRN IV NAUSEA AND/OR VOMITING Last administered on 07/23/18 21:38; Admin Dose 4 MG; Start 07/18/18 at 18:30 Albuterol (Proventil 0.083% (Neb)) 2.5 mg Q2H RESP THERAPY PRN NEB SHORTNESS OF BREATH Last administered on 08/01/18 10:58; Admin Dose 2.5 MG; Start 07/18/18 at 18:30 Ipratropium [place] (Atrovent 0.02% (Neb)) 0.5 mg Q2H RESP THERAPY PRN NEB SHORTNESS OF BREATH Last administered on 08/03/18 14:38; Admin Dose 0.5 MG; Start 07/18/18 at 18:30 Hydromorphone HCl (Dilaudid) 0.5 mg Q4H PRN IV PAIN LEVEL 7-10 Last administered on 08/04/18 09:09; Admin Dose 0.5 MG; Start 07/18/18 at 18:30 Acetaminophen (Tylenol Liquid) 650 mg Q6H PRN GTB PAIN LEVEL 1-3 OR FEVER Last administered on 07/24/18 12:05; Admin Dose 650 MG; Start 07/19/18 at 10:30 Acetaminophen/ Hydrocodone Bitart ([place] (5/325)) 1 tab Q6H PRN GTB PAIN LEVEL 4-6 Last administered on 08/04/18 04:44; Admin Dose 1 TAB; Start 07/19/18 at 12:30 Docusate Sodium (Colace Liquid Cup) 100 mg Q12 PRN GTB CONSTIPATION Last administered on 07/27/18 09:25; Admin Dose 100 MG; Start 07/19/18 at 08:00 Docusate Sodium (Colace Liquid Cup) 100 mg QHS GTB Last administered on 08/02/18 20:35; Admin Dose 100 MG; Start 07/19/18 at 21:00 IV Flush (NS 10 ml) 10 ml PRN PRN IV FLUSH LINE; Start 07/19/18 at 18:30 Levetiracetam (Keppra Liquid) 500 mg Q12 GTB Last administered on 08/04/18 09:15; Admin Dose 500 MG; Start 07/20/18 at 21:00 Mupirocin (Bactroban) 1 applic BID TOP Last administered on 08/04/18 09:25; Admin Dose 1 APPLIC; Start 07/21/18 at 21:00 Sodium Hypochlorite (Dakins Diluted (40)) 1 applic BID TP Last administered on 08/04/18 09:17; Admin Dose 1 APPLIC; Start 07/22/18 at 09:00 Collagenase (Santyl) 1 applic BID TOP Last administered on 08/04/18 09:16; Admin Dose 1 APPLIC; Start 07/22/18 at 09:00 Famotidine (Pepcid Iv) 20 mg BID IV Last administered on 08/04/18 09:09; Admin Dose 20 MG; Start 07/23/18 at 21:00 Epoetin [place]-epbx (Retacrit (Non-Esrd)) 10,000 unit MoWeFr@1700 SC Last administered on 08/03/18 17:28; Admin Dose 10,000 UNIT; Start 07/23/18 at 18:30 Metoclopramide HCl (Reglan) 5 mg TID IV Last administered on 08/04/18 09:09; Admin Dose 5 MG; Start 07/24/18 at 09:00 Quetiapine Fumarate (Seroquel) 75 mg BID GTB Last administered on 08/04/18 09:15; Admin Dose 75 MG; Start 07/29/18 at 21:00 Lubiprostone (Amitiza) 24 mcg BID PO Last administered on 08/04/18 09:16; Admin Dose 24 MCG; Start 07/30/18 at 21:00 Bisacodyl (Dulcolax Supp) 10 mg DAILY PRN [place] CONSTIPATION; Start 07/31/18 at 13:30 Alteplase, Recombinant (Cathflo (Activase)) 2 mg MAY REPEAT X1 PRN CATHETER IF CATHETER REMAINS OCCULUDED Last administered on 08/02/18at 15:54; Admin Dose 2 MG; Start 08/02/18 at 14:30 OPAL STRATTON MD Aug 04, 2018 10:46
[2018-08-04] MEDS: IPRATROPIUM (NEB) 0.5 MG/2.5 ML AMP NEB PRN (12:39)
[2018-08-04] MEDS: ALBUTEROL 0.083% (NEB) 2.5 MG/3 ML AMP NEB PRN (12:39)
[2018-08-04] MEDS: DOCUSATE SODIUM 10 MG/ML (10ML CUP) GTB SCH (22:11)
[2018-08-05] VITALS (18 sets, daily range): BP systolic 91–133; BP diastolic 73–95; PULSE 90–127; RESP 18–33
[2018-08-05] MEDS: HYDROmorphONE 0.5 MG/0.5 ML SYG IV PRN ×2 (06:47→10:48)
--- NOTE | 2018-08-05 07:59 | CONS ---
Assessment/Plan Assessment/Plan Assessment/Plan (Daily) 1. Acute kidney injury on CKD IV due to severe prerenal azotemia 2. Septic shock s/p levophed in ICU 3. PNA concerned about HCAP 4. UTI with Urine Cx growing Acinetobacter 5. 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 Ventilator dependant respiratory failure s/p Tracheostomy 7. S/p G tube placement 8. 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 H/o Right nephrectomy with left Nephrolithiasis 10 .H/o Bipolar disorder 12. Severe Anemia possibly due to Combination of Anemia of CKD + acute blood loss anemia s/p PRBC transfusion during this admission Plan: BUN/Cr 41/1.58, Na 153 on last labs, no labs today to review yet s/p PRBC transfusion during this admission, continue Epogen 19908 units SQ MWF s/p IV abx for UTI, now off antibiotic, renally dose all medications and monitor electrolytes, replace as needed We will continue to follow up Consultation Date/Type/Reason Admit Date/Time Jul 18, 2018 at 13:59 Initial Consult Date 07/18/18 Type of Consult NEPHROLOGY Requesting Provider: JOSÉ ANTONIO MIRZA MD Date/Time of Note DATE: 08/05/18 TIME: 07:59 Exam/Review of Systems Exam Vitals Vital Signs Date Temp Pulse Resp B/P (MAP) Pulse Ox O2 O2 Flow FiO2 Time Delivery Rate 08/05/18 123 30 100 40 05:24 08/05/18 98.2 128/82 04:21 (97) 08/01/18 Mechanical 16:11 Ventilator Trach Collar Intake and Output 08/04/18 08/04/18 08/05/18 1515:00 23:00 07:00 IntakeIntake Total 900 ml 830 ml OutputOutput Total 900 ml 500 ml BalanceBalance 0 ml 330 ml Exam Constitutional: non-verbal, awake, alert, no acute distress Head: normocephalic ENMT: other (+ tracheostomy ) Neck: supple, no JVD Respiratory: diminished breath sounds, other (Bilateral coarse BS +) Gastrointestinal: soft, non-tender Musculoskeletal: other (Paraplegia ) Neurological: alert, awake, Results Result Diagram: 08/02/18 0610 08/02/18 0610 Medications Medication Current Medications Bisacodyl (Dulcolax Supp) 10 mg DAILY [place] Last administered on 08/04/18 09:16; Admin Dose 10 MG; Start 07/19/18 at 09:00 Multivitamins Therapeutic (Theragran) 1 tab DAILY GTB Last administered on 09:15; Admin Dose 1 TAB; Start 07/19/18 at 09:00 Zinc Sulfate (Zinc Sulfate) 220 mg DAILY GTB Last administered on 08/04/18 09:15; Admin Dose 220 MG; Start 07/19/18 at 09:00 IV Flush (NS 3 ml) 3 ml PER PROTOCOL IV ; Start 07/18/18 at 18:30 Ondansetron HCl (Zofran Inj) 4 mg Q6H PRN IV NAUSEA AND/OR VOMITING Last administered on 07/23/18 21:38; Admin Dose 4 MG; Start 07/18/18 at 18:30 Albuterol (Proventil 0.083% (Neb)) 2.5 mg Q2H RESP THERAPY PRN NEB SHORTNESS OF BREATH Last administered on 08/04/18 12:39; Admin Dose 2.5 MG; Start 07/18/18 at 18:30 Ipratropium [place] (Atrovent 0.02% (Neb)) 0.5 mg Q2H RESP THERAPY PRN NEB SHORTNESS OF BREATH Last administered on 08/04/18 12:39; Admin Dose 0.5 MG; Start 07/18/18 at 18:30 Hydromorphone HCl (Dilaudid) 0.5 mg Q4H PRN IV PAIN LEVEL 7-10 Last administered on 08/05/18 06:47; Admin Dose 0.5 MG; Start 07/18/18 at 18:30 Acetaminophen (Tylenol Liquid) 650 mg Q6H PRN GTB PAIN LEVEL 1-3 OR FEVER Last administered on 07/24/18 12:05; Admin Dose 650 MG; Start 07/19/18 at 10:30 Acetaminophen/ Hydrocodone Bitart ([place] (5/325)) 1 tab Q6H PRN GTB PAIN LEVEL 4-6 Last administered on 08/04/18 12:13; Admin Dose 1 TAB; Start 07/19/18 at 12:30 Docusate Sodium (Colace Liquid Cup) 100 mg Q12 PRN GTB CONSTIPATION Last administered on 07/27/18 09:25; Admin Dose 100 MG; Start 07/19/18 at 08:00 Docusate Sodium (Colace Liquid Cup) 100 mg QHS GTB Last administered on 08/04/18 22:11; Admin Dose 100 MG; Start 07/19/18 at 21:00 IV Flush (NS 10 ml) 10 ml PRN PRN IV FLUSH LINE; Start 07/19/18 at 18:30 Levetiracetam (Keppra Liquid) 500 mg Q12 GTB Last administered on 08/04/18 22:12; Admin Dose 500 MG; Start 07/20/18 at 21:00 Mupirocin (Bactroban) 1 applic BID TOP Last administered on 08/04/18 22:13; Admin Dose 1 APPLIC; Start 07/21/18 at 21:00 Sodium Hypochlorite (Dakins Diluted (40)) 1 applic BID TP Last administered on 08/04/18 22:13; Admin Dose 1 APPLIC; Start 07/22/18 at 09:00 Collagenase (Santyl) 1 applic BID TOP Last administered on 08/04/18 22:12; Admin Dose 1 APPLIC; Start 07/22/18 at 09:00 Famotidine (Pepcid Iv) 20 mg BID IV Last administered on 08/04/18 22:12; Admin Dose 20 MG; Start 07/23/18 at 21:00 Epoetin [place]-epbx (Retacrit (Non-Esrd)) 10,000 unit MoWeFr@1700 SC Last administered on 08/03/18 17:28; Admin Dose 10,000 UNIT; Start 07/23/18 at 18:30 Metoclopramide HCl (Reglan) 5 mg TID IV Last administered on 08/04/18 22:12; Admin Dose 5 MG; Start 07/24/18 at 09:00 Quetiapine Fumarate (Seroquel) 75 mg BID GTB Last administered on 08/04/18 22:11; Admin Dose 75 MG; Start 07/29/18 at 21:00 Lubiprostone (Amitiza) 24 mcg BID PO Last administered on 08/04/18 22:11; Admin Dose 24 MCG; Start 07/30/18 at 21:00 Bisacodyl (Dulcolax Supp) 10 mg DAILY PRN [place] CONSTIPATION; Start 07/31/18 at 13:30 Alteplase, Recombinant (Cathflo (Activase)) 2 mg MAY REPEAT X1 PRN CATHETER IF CATHETER REMAINS OCCULUDED Last administered on 08/02/18at 15:54; Admin Dose 2 MG; Start 08/02/18 at 14:30 TIARA CISNEROS MD Aug 05, 2018 07:59
[2018-08-05] MEDS: QUETIAPINE 25 MG TAB GTB SCH ×2 (08:56→21:40)
[2018-08-05] MEDS: LEVETIRACETAM (100 MG/ML) 5ML CUP GTB SCH ×2 (08:56→21:40)
[2018-08-05] MEDS: ZINC SULFATE 220 MG CAP GTB SCH (08:57)
[2018-08-05] MEDS: MULTIVITAMINS THERAPEUTIC TAB GTB SCH (08:57)
[2018-08-05] MEDS: LUBIPROSTONE 24 MCG CAP PO SCH ×2 (08:58→21:39)
[2018-08-05] MEDS: FAMOTIDINE 20 MG INJ IV SCH ×2 (08:58→21:40)
[2018-08-05] MEDS: METOCLOPRAMIDE 10 MG INJ IV SCH ×3 (08:58→21:40)
[2018-08-05] MEDS: BISACODYL 10 MG SUPP PR SCH (09:00)
[2018-08-05] MEDS: BALSAM PERU/CASTOR OIL 60 GM TUBE TOP SCH ×2 (09:03→22:06)
[2018-08-05] MEDS: DAKINS 0.0125%(1/40) 473 ML SOLUTION TP SCH ×2 (09:03→22:06)
[2018-08-05] MEDS: MUPIROCIN 2% 22 GM OINT TOP SCH ×2 (09:04→22:07)
[2018-08-05] MEDS: COLLAGENASE 5 GM (UD JAR) TOP SCH ×2 (09:04→21:40)
--- NOTE | 2018-08-05 11:15 | PN ---
Date/Time of Note Date/Time of Note DATE: 08/05/18 TIME: 11:15 Assessment/Plan VTE Prophylaxis Risk score (from Ns)>0 risk: 3 SCD applied (from [facility] [place]): No SCD contraindicated: other Pharmacological prophylaxis: LMWH Lines/Catheters IV Catheter Type (from [facility]): PICC Line Central line still needed: Yes Urinary Cath still in place: Yes Reason Cath still needed: skin wounds contaminated by urine Assessment/Plan Hospital Course - Hypernatremia, continue free water with GT, IVF with D5W. Dr. Barker is following in nephrology consultation. - Large tracheal opening, s/p evaluation by Dr Woodruff in ENT consultation with recommendation to transfer to tertiary care center for free flap closure. - Anemia of chronic disease. S/p blood transfusion, continue Epogen. Stool for OB is neg. Dr. Borjas is following in gastroenterology consultation. - Ileus versus small bowel obstruction, resolved. - Sepsis with shock injury to possible healthcare acquired pneumonia and UTI, completed treatment with abx. Dr. Maciel is following in infection disease consultation. - Acute on chronic renal failure. Continue to monitor BUN and creatinine. - Ventilator dependent respiratory failure, continue pulmonary toilet and bronchodilators. Dr Ames is following in pulmonology consultation. - Neurogenic bladder with suprapubic catheter. - Dysphagia with gastrostomy tube. - Multiple decubitus ulcers present on admission. - Cervical spine injury with paraplegia. - Bipolar disorder with psychosis. - Hx of right nephrectomy - Hx of left renal nephrolithiasis, hx of lithotripsy with insertion and subsequent removal of ureteral JJ stent. Result Diagram: 08/02/18 0610 08/02/18 0610 Subjective 24 Hr Interval Summary Free Text/Dictation Patient complains of generalized pain Exam/Review of Systems Exam Vitals Vital Signs Date Temp Pulse Resp B/P (MAP) Pulse Ox O2 O2 Flow FiO2 Time Delivery Rate 08/05/18 98.0 94 18 118/85 98 08:18 (96) 08/05/18 40 05:24 08/01/18 Mechanical 16:11 Ventilator Trach Collar Intake and Output 08/04/18 08/04/18 08/05/18 1515:00 23:00 07:00 IntakeIntake Total 900 ml 830 ml OutputOutput Total 900 ml 500 ml BalanceBalance 0 ml 330 ml Constitutional: well developed Head: normocephalic, atraumatic Neck: supple Respiratory: diminished breath sounds Cardiovascular: regular rate and rhythm Gastrointestinal: soft, non-tender Extremities: normal pulses Medications Medication Current Medications Bisacodyl (Dulcolax Supp) 10 mg DAILY ID Last administered on 08/04/18 09:16; Admin Dose 10 MG; Start 07/19/18 at 09:00 Multivitamins Therapeutic (Theragran) 1 tab DAILY GTB Last administered on 08/05/18 08:57; Admin Dose 1 TAB; Start 07/19/18 at 09:00 Zinc Sulfate (Zinc Sulfate) 220 mg DAILY GTB Last administered on 08/05/18 08:57; Admin Dose 220 MG; Start 07/19/18 at 09:00 IV Flush (NS 3 ml) 3 ml PER PROTOCOL IV ; Start 07/18/18 at 18:30 Ondansetron HCl (Zofran Inj) 4 mg Q6H PRN IV NAUSEA AND/OR VOMITING Last administered on 07/23/18 21:38; Admin Dose 4 MG; Start 07/18/18 at 18:30 Albuterol (Proventil 0.083% (Neb)) 2.5 mg Q2H RESP THERAPY PRN NEB SHORTNESS OF BREATH Last administered on 08/04/18 12:39; Admin Dose 2.5 MG; Start 07/18/18 at 18:30 Ipratropium [place] (Atrovent 0.02% (Neb)) 0.5 mg Q2H RESP THERAPY PRN NEB SHORTNESS OF BREATH Last administered on 08/04/18 12:39; Admin Dose 0.5 MG; Start 07/18/18 at 18:30 Hydromorphone HCl (Dilaudid) 0.5 mg Q4H PRN IV PAIN LEVEL 7-10 Last administere d on 08/05/18 10:48; Admin Dose 0.5 MG; Start 07/18/18 at 18:30 Acetaminophen (Tylenol Liquid) 650 mg Q6H PRN GTB PAIN LEVEL 1-3 OR FEVER Last administered on 07/24/18 12:05; Admin Dose 650 MG; Start 07/19/18 at 10:30 Acetaminophen/ Hydrocodone Bitart ([place] (5/325)) 1 tab Q6H PRN GTB PAIN LEVEL 4-6 Last administered on 08/04/18 12:13; Admin Dose 1 TAB; Start 07/19/18 at 12:30 Docusate Sodium (Colace Liquid Cup) 100 mg Q12 PRN GTB CONSTIPATION Last administered on 07/27/18 09:25; Admin Dose 100 MG; Start 07/19/18 at 08:00 Docusate Sodium (Colace Liquid Cup) 100 mg QHS GTB Last administered on 08/04/18 22:11; Admin Dose 100 MG; Start 07/19/18 at 21:00 IV Flush (NS 10 ml) 10 ml PRN PRN IV FLUSH LINE; Start 07/19/18 at 18:30 Levetiracetam (Keppra Liquid) 500 mg Q12 GTB Last administered on 08/05/18 08:56; Admin Dose 500 MG; Start 07/20/18 at 21:00 Mupirocin (Bactroban) 1 applic BID TOP Last administered on 08/05/18 09:04; Admin Dose 1 APPLIC; Start 07/21/18 at 21:00 Sodium Hypochlorite (Dakins Diluted (1/40)) 1 applic BID TP Last administered on 08/05/18 09:03; Admin Dose 1 APPLIC; Start 07/22/18 at 09:00 Collagenase (Santyl) 1 applic BID TOP Last administered on 08/05/18 09:04; Admin Dose 1 APPLIC; Start 07/22/18 at 09:00 Famotidine (Pepcid Iv) 20 mg BID IV Last administered on 08/05/18 08:58; Admin Dose 20 MG; Start 07/23/18 at 21:00 Epoetin Prince-epbx (Retacrit (Non-Esrd)) 10,000 unit MoWeFr@1700 SC Last administered on 08/03/18 17:28; Admin Dose 10,000 UNIT; Start 07/23/18 at 18:30 Metoclopramide HCl (Reglan) 5 mg TID IV Last administered on 08/05/18 08:58; Admin Dose 5 MG; Start 07/24/18 at 09:00 Quetiapine Fumarate (Seroquel) 75 mg BID GTB Last administered on 08/05/18 08:56; Admin Dose 75 MG; Start 07/29/18 at 21:00 Lubiprostone (Amitiza) 24 mcg BID PO Last administered on 08/05/18at 08:58; Admin Dose 24 MCG; Start 07/30/18 at 21:00 Bisacodyl (Dulcolax Supp) 10 mg DAILY PRN [place] CONSTIPATION; Start 07/31/18 at 13:30 Alteplase, Recombinant (Cathflo (Activase)) 2 mg MAY REPEAT X1 PRN CATHETER IF CATHETER REMAINS OCCULUDED Last administered on 08/02/18at 15:54; Admin Dose 2 MG; Start 08/02/18 at 14:30 DANAY MUIR Aug 05, 2018 11:15
[2018-08-05] MEDS: IPRATROPIUM (NEB) 0.5 MG/2.5 ML AMP NEB PRN (12:25)
[2018-08-05] MEDS: ALBUTEROL 0.083% (NEB) 2.5 MG/3 ML AMP NEB PRN ×2 (12:25→20:06)
[2018-08-05] MEDS: HYDROmorphONE 1 MG/ML SYG IV PRN ×3 (12:40→21:37)
--- NOTE | 2018-08-05 16:26 | PN ---
DATE: 08/05/2018 SUBJECTIVE: The patient is on ventilator support. His breathing appears comfortable. PHYSICAL EXAMINATION: VITAL SIGNS: Stable. Temperature 98, blood pressure 118/85, pulse rate 94, respirations 18, pulse o ximetry 98% saturation. NECK: Tracheostomy tube is in place. Secretions are minimal to moderate. No gross bleeding seen. HEART: Regular rhythm with periods of sinus tachycardia when he gets agitated. CHEST: Breath sounds are diminished in both the lower lung tierney. A few intermittent rales and rho nchi. ABDOMEN: Soft, tolerating G-tube feedings. Bowel sounds are present. EXTREMITIES: Show no edema. He is paraplegic. LABORATORY DATA: No lab results are available today. IMPRESSION: 1. Chronic ventilator-dependent respiratory failure. 2. Resolving sepsis. 3. Chronic kidney disease with acute kidney injury, improving. 4. Chronic anemia. 5. History of nephrolithiasis. 6. Paraplegia. 7. History of spinal cord injury in the past. 8. History of bipolar disorder. RECOMMENDATIONS: 1. Continue long-term ventilator support. 2. Continue bronchodilator inhalation therapy to clear the secretions and improve bronchial hygiene. 3. Continue hydration. 4. The pillowcase maker is trying to arrange transfer to a tertiary care center for tracheostomy opening . Dictated By: HUMBERTO PEREZ MD SR/NTS Conf#: [id number] DID#: [id number] CC: JOSÉ ANTONIO MIRZA MD;*End*
--- NOTE | 2018-08-05 16:58 | CONS ---
Assessment/Plan Assessment/Plan Assessment/Plan (Daily) Assessment/Plan (Daily) Assessment/Plan (Daily) Hospital Course (Demo Recall) 42 year old paraplegic male presents from SNF for sepsis secondary to pnuemonia and UTI was found to ileus vs SBO on KUB with one episode of coffee ground vomit. 1. Ileus vs SBO -resolved 2. Anemia, acute on chronic -neg FOB 3. Acute on chronic renal failure -h/o rt nephrectomy -improving 4. Sepsis secondary to pnuemonia and UTI 5. Pneumonia 6. UTI -Acinetobacter Baumannii 7. Paraplegia secondary to cervical spine injury, patient is a wasting of the muscles both of upper and lower extremity 8. Vent dependent respiratory failure 9. Dysphagia, s/p g tube 10. Bipolar disorder 11. Leakage of air from the tracheostomy site Plan Increase feeding as per dietitian recommendation Continue Pepcid and reglan Continue tube feeds. Will increase the feeding to 40 cc/h, patient is tolerating feeding at 40 cc/h ENT evaluation for the leakage of air from the tracheostomy site We will monitor hematocrit it dropped down to 28 today no evidence of active bleeding Amitiza 24 mcg BID Consultation Date/Type/Reason Admit Date/Time Jul 18, 2018 at 13:59 Initial Consult Date 07/18/18 Requesting Provider: JOSÉ ANTONIO MIRZA MD Date/Time of Note DATE: 08/05/18 TIME: 16:58 24 HR Interval Summary Constitutional: no complaints, improved Exam/Review of Systems Exam Vitals Vital Signs Date Temp Pulse Resp B/P (MAP) Pulse Ox O2 O2 Flow FiO2 Time Delivery Rate 08/05/18 98.6 99 20 127/78 98 15:45 (94) 08/05/18 40 15:00 08/01/18 Mechanical 16:11 Ventilator Trach Collar Intake and Output 08/04/18 08/04/18 08/05/18 1515:00 23:00 07:00 IntakeIntake Total 900 ml 830 ml OutputOutput Total 900 ml 500 ml BalanceBalance 0 ml 330 ml Constitutional: alert, oriented ENMT: intubated Respiratory: diminished breath sounds Cardiovascular: regular rate and rhythm Gastrointestinal: soft, nl liver, spleen, non-tender Results Result Diagram: 08/02/18 0610 08/02/18 06 Medications Medication Current Medications Bisacodyl (Dulcolax Supp) 10 mg DAILY [place] Last administered on 08/04/18 09:16; Admin Dose 10 MG; Start 07/19/18 at 09:00 Multivitamins Therapeutic (Theragran) 1 tab DAILY GTB Last administered on 08/05/18 08:57; Admin Dose 1 TAB; Start 07/19/18 at 09:00 Zinc Sulfate (Zinc Sulfate) 220 mg DAILY GTB Last administered on 08/05/18 08:57; Admin Dose 220 MG; Start 07/19/18 at 09:00 IV Flush (NS 3 ml) 3 ml PER PROTOCOL IV ; Start 07/18/18 at 18:30 Ondansetron HCl (Zofran Inj) 4 mg Q6H PRN IV NAUSEA AND/OR VOMITING Last administered on 07/23/18 21:38; Admin Dose 4 MG; Start 07/18/18 at 18:30 Albuterol (Proventil 0.083% (Neb)) 2.5 mg Q2H RESP THERAPY PRN NEB SHORTNESS OF BREATH Last administered on 08/05/18 12:25; Admin Dose 2.5 MG; Start 07/18/18 at 18:30 Ipratropium [place] (Atrovent 0.02% (Neb)) 0.5 mg Q2H RESP THERAPY PRN NEB SHORTNESS OF BREATH Last administered on 08/05/18 12:25; Admin Dose 0.5 MG; Start 07/18/18 at 18:30 Acetaminophen (Tylenol Liquid) 650 mg Q6H PRN GTB PAIN LEVEL 1-3 OR FEVER Last administered on 07/24/18 12:05; Admin Dose 650 MG; Start 07/19/18 at 10:30 Acetaminophen/ Hydrocodone Bitart ([place] (5/325)) 1 tab Q6H PRN GTB PAIN LEVEL 4-6 Last administered on 08/04/18 12:13; Admin Dose 1 TAB; Start 07/19/18 at 12:30 Docusate Sodium (Colace Liquid Cup) 100 mg Q12 PRN GTB CONSTIPATION Last administered on 07/27/18 09:25; Admin Dose 100 MG; Start 07/19/18 at 08:00 Docusate Sodium (Colace Liquid Cup) 100 mg QHS GTB Last administered on 08/04/18 22:11; Admin Dose 100 MG; Start 07/19/18 at 21:00 IV Flush (NS 10 ml) 10 ml PRN PRN IV FLUSH LINE; Start 07/19/18 at 18:30 Levetiracetam (Keppra Liquid) 500 mg Q12 GTB Last administered on 08/05/18 08:56; Admin Dose 500 MG; Start 07/20/18 at 21:00 Mupirocin (Bactroban) 1 applic BID TOP Last administered on 08/05/18 09:04; Admin Dose 1 APPLIC; Start 07/21/18 at 21:00 Sodium Hypochlorite (Dakins Diluted (40)) 1 applic BID TP Last administered on 08/05/18 09:03; Admin Dose 1 APPLIC; Start 07/22/18 at 09:00 Collagenase (Santyl) 1 applic BID TOP Last administered on 08/05/18 09:04; Admin Dose 1 APPLIC; Start 07/22/18 at 09:00 Famotidine (Pepcid Iv) 20 mg BID IV Last administered on 08/05/18 08:58; Admin Dose 20 MG; Start 07/23/18 at 21:00 Epoetin [place]-epbx (Retacrit (Non-Esrd)) 10,000 unit MoWeFr@1700 SC Last administered on 08/03/18 17:28; Admin Dose 10,000 UNIT; Start 07/23/18 at 18:30 Metoclopramide HCl (Reglan) 5 mg TID IV Last administered on 08/05/18 14:11; Admin Dose 5 MG; Start 07/24/18 at 09:00 Quetiapine Fumarate (Seroquel) 75 mg BID GTB Last administered on 08/05/18 08:56; Admin Dose 75 MG; Start 07/29/18 at 21:00 Lubiprostone (Amitiza) 24 mcg BID PO Last administered on 08/05/18 08:58; Admin Dose 24 MCG; Start 07/30/18 at 21:00 Bisacodyl (Dulcolax Supp) 10 mg DAILY PRN [place] CONSTIPATION; Start 07/31/18 at 13:30 Alteplase, Recombinant (Cathflo (Activase)) 2 mg MAY REPEAT X1 PRN CATHETER IF CATHETER REMAINS OCCULUDED Last administered on 08/02/18at 15:54; Admin Dose 2 MG; Start 08/02/18 at 14:30 Hydromorphone HCl (Dilaudid) 1 mg Q4H PRN IV PAIN LEVEL 7-10 Last administered on 08/05/18at 12:40; Admin Dose 1 MG; Start 08/05/18 at 12:00 OPAL STRATTON MD Aug 05, 2018 16:58
[2018-08-05] MEDS: DOCUSATE SODIUM 10 MG/ML (10ML CUP) GTB SCH (21:40)
[2018-08-06] VITALS (19 sets, daily range): BP systolic 96–158; BP diastolic 55–108; PULSE 65–140; RESP 18–33
[2018-08-06] MEDS: ALBUTEROL 0.083% (NEB) 2.5 MG/3 ML AMP NEB PRN ×2 (01:02→15:46)
[2018-08-06] MEDS ORDERED: SOD CHLORIDE 0.9% 500 ML IV ONE (01:30)
[2018-08-06] MEDS: HYDROmorphONE 0.5 MG/0.5 ML SYG IV PRN ×4 (06:01→18:57)
--- NOTE | 2018-08-06 07:39 | CONS ---
Assessment/Plan Assessment/Plan Hospital Course (Demo Recall) 42 year old paraplegic male presents from SNF for sepsis secondary to pnuemonia and UTI was found to ileus vs SBO on KUB with one episode of coffee ground vomit. Trach collar 40% FiO2 with 95% O2 saturation. Tachycardic in low 100s to low 120s. Last bm 08/04. No acute changes. Pending tertiary care placement for trach leak 1. Ileus vs SBO -resolved 2. Anemia, acute on chronic -neg FOB 3. Acute on chronic renal failure -h/o rt nephrectomy -improving 4. Sepsis secondary to pnuemonia and UTI 5. Pneumonia 6. UTI -Acinetobacter Baumannii 7. 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 Vent dependent respiratory failure 9. Dysphagia, s/p g tube 10. Bipolar disorder Plan Continue Pepcid and reglan Continue tube feeds DC amitiza (PO only ), start relistor injection qd prn constipation Tertiary care for trach stoma closure Pt examined and plan of care discussed with Dr. Borjas Consultation Date/Type/Reason Admit Date/Time Jul 18, 2018 at 13:59 Initial Consult Date 07/18/18 Requesting Provider: JOSÉ ANTONIO MIRZA MD Date/Time of Note DATE: 08/06/18 TIME: 07:31 Exam/Review of Systems Exam Vitals Vital Signs Date Temp Pulse Resp B/P (MAP) Pulse Ox O2 O2 Flow FiO2 Time Delivery Rate 08/06/18 118 20 95 40 05:13 08/06/18 97.5 149/108 04:31 (122) Intake and Output 08/05/18 08/05/18 08/06/18 1515:00 23:00 07:00 IntakeIntake Total 0 ml OutputOutput Total 0 ml 600 ml 300 ml BalanceBalance 0 ml -600 ml -300 ml Constitutional: alert, oriented Psych: no complaints Head: normocephalic Eyes: nl sclera, PERRL ENMT: mucosa pink and moist Respiratory: normal air movement, other (trach site leak) Gastrointestinal: soft, non-tender Neurological: nl mental status Results Result Diagram: 08/06/18 0552 08/06/18 0552 Results 24hrs Laboratory Tests Test 08/06/18 05:52 White Blood Count 10.2 # Red Blood Count 3.30 L Hemoglobin 9.1 L Hematocrit 32.3 L Mean Corpuscular Volume 97.9 Mean Corpuscular Hemoglobin 27.6 L Mean Corpuscular Hemoglobin Concent 28.2 L Red Cell Distribution Width 19.5 H Platelet Count 154 Mean Platelet Volume 12.7 H Immature Granulocytes % 0.400 Neutrophils % 87.0 H Lymphocytes % 5.9 L Monocytes % 6.0 Eosinophils % 0.4 Basophils % 0.3 Nucleated Red Blood Cells % 0.0 Immature Granulocytes # 0.040 H Neutrophils # 8.9 H Lymphocytes # 0.6 L Monocytes # 0.6 Eosinophils # 0.0 Basophils # 0.0 Nucleated Red Blood Cells # 0.0 Sodium Level 157 H Potassium Level 4.0 Chloride Level 122 H Carbon Dioxide Level 26 Anion Gap 9 Blood Urea Nitrogen 49 H Creatinine 1.96 H Est Glomerular Filtrat Rate mL/min 38 L Glucose Level 115 Calcium Level 9.4 Magnesium Level 2.4 Total Bilirubin 0.4 Direct Bilirubin 0.00 Indirect Bilirubin 0.4 Aspartate Amino Transf (AST/SGOT) 15 Alanine Aminotransferase (ALT/SGPT) 13 Alkaline Phosphatase 137 H Total Protein 8.3 H Albumin 3.7 Globulin 4.60 H Albumin/Globulin Ratio 0.80 Medications Medication Current Medications Bisacodyl (Dulcolax Supp) 10 mg DAILY [place] Last administered on 08/04/18 09:16; Admin Dose 10 MG; Start 07/19/18 at 09:00 Multivitamins Therapeutic (Theragran) 1 tab DAILY GTB Last administered on 08/05/18 08:57; Admin Dose 1 TAB; Start 07/19/18 at 09:00 Zinc Sulfate (Zinc Sulfate) 220 mg DAILY GTB Last administered on 08/05/18 08:57; Admin Dose 220 MG; Start 07/19/18 at 09:00 IV Flush (NS 3 ml) 3 ml PER PROTOCOL IV ; Start 07/18/18 at 18:30 Ondansetron HCl (Zofran Inj) 4 mg Q6H PRN IV NAUSEA AND/OR VOMITING Last administered on 07/23/18 21:38; Admin Dose 4 MG; Start 07/18/18 at 18:30 Albuterol (Proventil 0.083% (Neb)) 2.5 mg Q2H RESP THERAPY PRN NEB SHORTNESS OF BREATH Last administered on 08/06/18 01:02; Admin Dose 2.5 MG; Start 07/18/18 at 18:30 Ipratropium [place] (Atrovent 0.02% (Neb)) 0.5 mg Q2H RESP THERAPY PRN NEB SHORTNESS OF BREATH Last administered on 08/05/18 12:25; Admin Dose 0.5 MG; Start 07/18/18 at 18:30 Acetaminophen (Tylenol Liquid) 650 mg Q6H PRN GTB PAIN LEVEL 1-3 OR FEVER Last administered on 07/24/18 12:05; Admin Dose 650 MG; Start 07/19/18 at 10:30 Acetaminophen/ Hydrocodone Bitart ([place] (5/325)) 1 tab Q6H PRN GTB PAIN LEVEL 4-6 Last administered on 08/04/18 12:13; Admin Dose 1 TAB; Start 07/19/18 at 12:30 Docusate Sodium (Colace Liquid Cup) 100 mg Q12 PRN GTB CONSTIPATION Last administered on 07/27/18 09:25; Admin Dose 100 MG; Start 07/19/18 at 08:00 Docusate Sodium (Colace Liquid Cup) 100 mg QHS GTB Last administered on 08/05/18 21:40; Admin Dose 100 MG; Start 07/19/18 at 21:00 IV Flush (NS 10 ml) 10 ml PRN PRN IV FLUSH LINE; Start 07/19/18 at 18:30 Levetiracetam (Keppra Liquid) 500 mg Q12 GTB Last administered on 08/05/18 21:40; Admin Dose 500 MG; Start 07/20/18 at 21:00 Mupirocin (Bactroban) 1 applic BID TOP Last administered on 08/05/18 22:07; Admin Dose 1 APPLIC; Start 07/21/18 at 21:00 Sodium Hypochlorite (Dakins Diluted ()) 1 applic BID TP Last administered o n 08/05/18 22:06; Admin Dose 1 APPLIC; Start 07/22/18 at 09:00 Collagenase (Santyl) 1 applic BID TOP Last administered on 08/05/18 21:40; Admin Dose 1 APPLIC; Start 07/22/18 at 09:00 Famotidine (Pepcid Iv) 20 mg BID IV Last administered on 08/05/18 21:40; Admin Dose 20 MG; Start 07/23/18 at 21:00 Epoetin Prince-epbx (Retacrit (Non-Esrd)) 10,000 unit MoWeFr@1700 SC Last administered on 08/03/18 17:28; Admin Dose 10,000 UNIT; Start 07/23/18 at 18:30 Metoclopramide HCl (Reglan) 5 mg TID IV Last administered on 08/05/18 21:40; Admin Dose 5 MG; Start 07/24/18 at 09:00 Quetiapine Fumarate (Seroquel) 75 mg BID GTB Last administered on 08/05/18 21:40; Admin Dose 75 MG; Start 07/29/18 at 21:00 Lubiprostone (Amitiza) 24 mcg BID PO Last administered on 08/05/18at 21:39; Admin Dose 24 MCG; Start 07/30/18 at 21:00 Bisacodyl (Dulcolax Supp) 10 mg DAILY PRN [place] CONSTIPATION; Start 07/31/18 at 13:30 Alteplase, Recombinant (Cathflo (Activase)) 2 mg MAY REPEAT X1 PRN CATHETER IF CATHETER REMAINS OCCULUDED Last administered on 08/02/18at 15:54; Admin Dose 2 MG; Start 08/02/18 at 14:30 Hydromorphone HCl (Dilaudid) 0.5 mg Q4H PRN IV SEVERE PAIN LEVEL 7-10 Last administered on 08/06/18at 06:01; Admin Dose 0.5 MG; Start 08/06/18 at 01:30 ISIAH SEYMOUR Aug 06, 2018 07:39
[2018-08-06] MEDS: COLLAGENASE 5 GM (UD JAR) TOP SCH ×2 (09:00→20:42)
[2018-08-06] MEDS: QUETIAPINE 25 MG TAB GTB SCH ×2 (09:00→20:43)
[2018-08-06] MEDS: LEVETIRACETAM (100 MG/ML) 5ML CUP GTB SCH ×2 (09:00→20:43)
[2018-08-06] MEDS ORDERED: METHYLNALTREXONE 12 MG/0.6 ML VIAL SC PRN (09:00)
[2018-08-06] MEDS: DAKINS 0.0125%(1/40) 473 ML SOLUTION TP SCH ×2 (09:01→20:44)
[2018-08-06] MEDS: METOCLOPRAMIDE 10 MG INJ IV SCH ×3 (09:01→20:42)
[2018-08-06] MEDS: MUPIROCIN 2% 22 GM OINT TOP SCH ×2 (09:01→20:44)
[2018-08-06] MEDS: MULTIVITAMINS THERAPEUTIC TAB GTB SCH (09:01)
[2018-08-06] MEDS: BISACODYL 10 MG SUPP PR SCH (09:01)
[2018-08-06] MEDS: FAMOTIDINE 20 MG INJ IV SCH ×2 (09:01→20:42)
[2018-08-06] MEDS: ZINC SULFATE 220 MG CAP GTB SCH (09:01)
[2018-08-06] MEDS: BALSAM PERU/CASTOR OIL 60 GM TUBE TOP SCH ×2 (09:02→20:44)
--- NOTE | 2018-08-06 11:51 | CONS ---
Assessment/Plan Assessment/Plan Assessment/Plan (Daily) 1. Acute kidney injury on CKD IV due to severe prerenal azotemia 2. Septic shock s/p levophed in ICU 3. PNA concerned about HCAP 4. UTI with Urine Cx growing Acinetobacter 5. 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 Ventilator dependant respiratory failure s/p Tracheostomy 7. S/p G tube placement 8. 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 H/o Right nephrectomy with left Nephrolithiasis 10 .H/o Bipolar disorder 12. Severe Anemia possibly due to Combination of Anemia of CKD + acute blood loss anemia s/p PRBC transfusion during this admission Plan: BUN/Cr 49/1.96 s/p PRBC transfusion during this admission, continue Epogen 65585 units SQ MWF s/p IV abx for UTI, now off antibiotic, renally dose all medications and monitor electrolytes, replace as needed We will continue to follow up Consultation Date/Type/Reason Admit Date/Time Jul 18, 2018 at 13:59 Initial Consult Date 07/18/18 Type of Consult NEPHROLOGY Requesting Provider: JOSÉ ANTONIO MIRZA MD Date/Time of Note DATE: 08/06/18 TIME: 11:50 Exam/Review of Systems Exam Vitals Vital Signs Date Temp Pulse Resp B/P (MAP) Pulse Ox O2 O2 Flow FiO2 Time Delivery Rate 08/06/18 120 30 93 40 11:12 08/06/18 98.6 96/55 (69) 07:52 Intake and Output 08/05/18 08/05/18 08/06/18 1515:00 23:00 07:00 IntakeIntake Total 0 ml 120 ml OutputOutput Total 0 ml 600 ml 1150 ml BalanceBalance 0 ml -600 ml -1030 ml Results Result Diagram: 08/06/18 0552 08/06/18 0552 Results 24hrs Laboratory Tests Test 08/06/18 05:52 White Blood Count 10.2 # Red Blood Count 3.30 L Hemoglobin 9.1 L Hematocrit 32.3 L Mean Corpuscular Volume 97.9 Mean Corpuscular Hemoglobin 27.6 L Mean Corpuscular Hemoglobin Concent 28.2 L Red Cell Distribution Width 19.5 H Platelet Count 154 Mean Platelet Volume 12.7 H Immature Granulocytes % 0.400 Neutrophils % 87.0 H Lymphocytes % 5.9 L Monocytes % 6.0 Eosinophils % 0.4 Basophils % 0.3 Nucleated Red Blood Cells % 0.0 Immature Granulocytes # 0.040 H Neutrophils # 8.9 H Lymphocytes # 0.6 L Monocytes # 0.6 Eosinophils # 0.0 Basophils # 0.0 Nucleated Red Blood Cells # 0.0 Sodium Level 157 H Potassium Level 4.0 Chloride Level 122 H Carbon Dioxide Level 26 Anion Gap 9 Blood Urea Nitrogen 49 H Creatinine 1.96 H Est Glomerular Filtrat Rate mL/min 38 L Glucose Level 115 Calcium Level 9.4 Magnesium Level 2.4 Total Bilirubin 0.4 Direct Bilirubin 0.00 Indirect Bilirubin 0.4 Aspartate Amino Transf (AST/SGOT) 15 Alanine Aminotransferase (ALT/SGPT) 13 Alkaline Phosphatase 137 H Total Protein 8.3 H Albumin 3.7 Globulin 4.60 H Albumin/Globulin Ratio 0.80 Medications Medication Current Medications Bisacodyl (Dulcolax Supp) 10 mg DAILY [place] Last administered on 08/06/18 09:01; Admin Dose 10 MG; Start 07/19/18 at 09:00 Multivitamins Therapeutic (Theragran) 1 tab DAILY GTB Last administered on 08/06/18 09:01; Admin Dose 1 TAB; Start 07/19/18 at 09:00 Zinc Sulfate (Zinc Sulfate) 220 mg DAILY GTB Last administered on 08/06/18 09:01; Admin Dose 220 MG; Start 07/19/18 at 09:00 IV Flush (NS 3 ml) 3 ml PER PROTOCOL IV ; Start 07/18/18 at 18:30 Ondansetron HCl (Zofran Inj) 4 mg Q6H PRN IV NAUSEA AND/OR VOMITING Last administered on 07/23/18 21:38; Admin Dose 4 MG; Start 07/18/18 at 18:30 Albuterol (Proventil 0.083% (Neb)) 2.5 mg Q2H RESP THERAPY PRN NEB SHORTNESS OF BREATH Last administered on 08/06/18 01:02; Admin Dose 2.5 MG; Start 07/18/18 at 18:30 Ipratropium [place] (Atrovent 0.02% (Neb)) 0.5 mg Q2H RESP THERAPY PRN NEB SHORTNESS OF BREATH Last administered on 08/05/18 12:25; Admin Dose 0.5 MG; Start 07/18/18 at 18:30 Acetaminophen (Tylenol Liquid) 650 mg Q6H PRN GTB PAIN LEVEL 1-3 OR FEVER Last administered on 07/24/18 12:05; Admin Dose 650 MG; Start 07/19/18 at 10:30 Acetaminophen/ Hydrocodone Bitart ([place] (5/325)) 1 tab Q6H PRN GTB PAIN LEVEL 4-6 Last administered on 08/04/18 12:13; Admin Dose 1 TAB; Start 07/19/18 at 12:30 Docusate Sodium (Colace Liquid Cup) 100 mg Q12 PRN GTB CONSTIPATION Last administered on 07/27/18 09:25; Admin Dose 100 MG; Start 07/19/18 at 08:00 Docusate Sodium (Colace Liquid Cup) 100 mg QHS GTB Last administered on 08/05/18 21:40; Admin Dose 100 MG; Start 07/19/18 at 21:00 IV Flush (NS 10 ml) 10 ml PRN PRN IV FLUSH LINE; Start 07/19/18 at 18:30 Levetiracetam (Keppra Liquid) 500 mg Q12 GTB Last administered on 08/06/18 09:00; Admin Dose 500 MG; Start 07/20/18 at 21:00 Mupirocin (Bactroban) 1 applic BID TOP Last administered on 08/06/18 09:01; Admin Dose 1 APPLIC; Start 07/21/18 at 21:00 Sodium Hypochlorite (Dakins Diluted (140)) 1 applic BID TP Last administered on 08/06/18 09:01; Admin Dose 1 APPLIC; Start 07/22/18 at 09:00 Collagenase (Santyl) 1 applic BID TOP Last administered on 08/06/18 09:00; Admin Dose 1 APPLIC; Start 07/22/18 at 09:00 Famotidine (Pepcid Iv) 20 mg BID IV Last administered on 08/06/18 09:01; Admin Dose 20 MG; Start 07/23/18 at 21:00 Epoetin Prince-epbx (Retacrit (Non-Esrd)) 10,000 unit MoWeFr@1700 SC Last administered on 08/03/18 17:28; Admin Dose 10,000 UNIT; Start 07/23/18 at 18:30 Metoclopramide HCl (Reglan) 5 mg TID IV Last administered on 08/06/18at 09:01; Ad min Dose 5 MG; Start 07/24/18 at 09:00 Quetiapine Fumarate (Seroquel) 75 mg BID GTB Last administered on 08/06/18at 09:00; Admin Dose 75 MG; Start 07/29/18 at 21:00 Bisacodyl (Dulcolax Supp) 10 mg DAILY PRN [place] CONSTIPATION; Start 07/31/18 at 13:30 Alteplase, Recombinant (Cathflo (Activase)) 2 mg MAY REPEAT X1 PRN CATHETER IF CATHETER REMAINS OCCULUDED Last administered on 08/02/18at 15:54; Admin Dose 2 MG; Start 08/02/18 at 14:30 Hydromorphone HCl (Dilaudid) 0.5 mg Q4H PRN IV SEVERE PAIN LEVEL 7-10 Last administered on 08/06/18at 10:21; Admin Dose 0.5 MG; Start 08/06/18 at 01:30 Methylnaltrexone [place] (Relistor) 12 mg DAILY PRN [place] constipation; Start 08/06/18 at 09:00 TIARA CISNEROS MD Aug 06, 2018 11:50
[2018-08-06] MEDS: IPRATROPIUM (NEB) 0.5 MG/2.5 ML AMP NEB PRN ×2 (15:46→21:36)
--- NOTE | 2018-08-06 18:11 | PN ---
Date/Time of Note Date/Time of Note DATE: 08/06/18 TIME: 18:11 Assessment/Plan VTE Prophylaxis Risk score (from Ns)>0 risk: 7 SCD applied (from Ns): Yes Pharmacological prophylaxis: NA/contraindicated Pharm contraindication: anticoag not tolerated Lines/Catheters IV Catheter Type (from Nrsg): PICC Line Central line still needed: Yes Urinary Cath still in place: Yes Reason Cath still needed: urinary retention Assessment/Plan Hospital Course Patient with increased hypernatremia, continue free water and IV fluids per nephrology recommendations. Case management for tertiary facility transfer for a large tracheal stoma closure with flap. Assessment/Plan - Hypernatremia, continue free water with GT, IVF with D5W. Dr. Barker is following in nephrology consultation. - Large tracheal opening, s/p evaluation by Dr Woodruff in ENT consultation with recommendation to transfer to tertiary care center for free flap closure. - Anemia of chronic disease. S/p blood transfusion, continue Epogen. Stool for OB is neg. Dr. Borjas is following in gastroenterology consultation. - Ileus versus small bowel obstruction, resolved. - Sepsis with shock injury to possible healthcare acquired pneumonia and UTI, completed treatment with abx. Dr. Maciel is following in infection disease consultation. - Acute on chronic renal failure. Continue to monitor BUN and creatinine. - Ventilator dependent respiratory failure, continue pulmonary toilet and bronchodilators. Dr Ames is following in pulmonology consultation. - Neurogenic bladder with suprapubic catheter. - Dysphagia with gastrostomy tube. - Multiple decubitus ulcers present on admission. - Cervical spine injury with paraplegia. - Bipolar disorder with psychosis. - Hx of right nephrectomy - Hx of left renal nephrolithiasis, hx of lithotripsy with insertion and subsequent removal of ureteral JJ stent. Further recommendations based on clinical course. Plan of care discussed with Dr. Barreto. Result Diagram: 08/06/18 0552 08/06/18 0552 Results 24hrs Laboratory Tests Test 08/06/18 05:52 White Blood Count 10.2 # Red Blood Count 3.30 L Hemoglobin 9.1 L Hematocrit 32.3 L Mean Corpuscular Volume 97.9 Mean Corpuscular Hemoglobin 27.6 L Mean Corpuscular Hemoglobin Concent 28.2 L Red Cell Distribution Width 19.5 H Platelet Count 154 Mean Platelet Volume 12.7 H Immature Granulocytes % 0.400 Neutrophils % 87.0 H Lymphocytes % 5.9 L Monocytes % 6.0 Eosinophils % 0.4 Basophils % 0.3 Nucleated Red Blood Cells % 0.0 Immature Granulocytes # 0.040 H Neutrophils # 8.9 H Lymphocytes # 0.6 L Monocytes # 0.6 Eosinophils # 0.0 Basophils # 0.0 Nucleated Red Blood Cells # 0.0 Sodium Level 157 H Potassium Level 4.0 Chloride Level 122 H Carbon Dioxide Level 26 Anion Gap 9 Blood Urea Nitrogen 49 H Creatinine 1.96 H Est Glomerular Filtrat Rate mL/min 38 L Glucose Level 115 Calcium Level 9.4 Magnesium Level 2.4 Total Bilirubin 0.4 Direct Bilirubin 0.00 Indirect Bilirubin 0.4 Aspartate Amino Transf (AST/SGOT) 15 Alanine Aminotransferase (ALT/SGPT) 13 Alkaline Phosphatase 137 H Total Protein 8.3 H Albumin 3.7 Globulin 4.60 H Albumin/Globulin Ratio 0.80 Exam/Review of Systems Exam Vitals Vital Signs Date Temp Pulse Resp B/P (MAP) Pulse Ox O2 O2 Flow FiO2 Time Delivery Rate 08/06/18 135 26 97 40 17:39 08/06/18 98.0 158/87 16:08 (110) Intake and Output 08/05/18 08/05/18 08/06/18 1515:00 23:00 07:00 IntakeIntake Total 0 ml 120 ml OutputOutput Total 0 ml 600 ml 1150 ml BalanceBalance 0 ml -600 ml -1030 ml Exam Constitutional: alert, awake Neck: supple, other (Tracheostomy) Respiratory: diminished breath sounds Cardiovascular: regular rate and rhythm Gastrointestinal: soft, non-tender, other (G-tube) Genitourinary - Male: other (Suprapubic catheter) Extremities: normal pulses, other (Contracted) Neurological: other (Paraplegia) Skin: other (Multiple wounds) Results Results 24hrs Laboratory Tests Test 08/06/18 05:52 White Blood Count 10.2 # Red Blood Count 3.30 L Hemoglobin 9.1 L Hematocrit 32.3 L Mean Corpuscular Volume 97.9 Mean Corpuscular Hemoglobin 27.6 L Mean Corpuscular Hemoglobin Concent 28.2 L Red Cell Distribution Width 19.5 H Platelet Count 154 Mean Platelet Volume 12.7 H Immature Granulocytes % 0.400 Neutrophils % 87.0 H Lymphocytes % 5.9 L Monocytes % 6.0 Eosinophils % 0.4 Basophils % 0.3 Nucleated Red Blood Cells % 0.0 Immature Granulocytes # 0.040 H Neutrophils # 8.9 H Lymphocytes # 0.6 L Monocytes # 0.6 Eosinophils # 0.0 Basophils # 0.0 Nucleated Red Blood Cells # 0.0 Sodium Level 157 H Potassium Level 4.0 Chloride Level 122 H Carbon Dioxide Level 26 Anion Gap 9 Blood Urea Nitrogen 49 H Creatinine 1.96 H Est Glomerular Filtrat Rate mL/min 38 L Glucose Level 115 Calcium Level 9.4 Magnesium Level 2.4 Total Bilirubin 0.4 Direct Bilirubin 0.00 Indirect Bilirubin 0.4 Aspartate Amino Transf (AST/SGOT) 15 Alanine Aminotransferase (ALT/SGPT) 13 Alkaline Phosphatase 137 H Total Protein 8.3 H Albumin 3.7 Globulin 4.60 H Albumin/Globulin Ratio 0.80 Medications Medication Current Medications Bisacodyl (Dulcolax Supp) 10 mg DAILY [place] Last administered on 08/06/18 09:01; Admin Dose 10 MG; Start 07/19/18 at 09:00 Multivitamins Therapeutic (Theragran) 1 tab DAILY GTB Last administered on 08/06/18 09:01; Admin Dose 1 TAB; Start 07/19/18 at 09:00 Zinc Sulfate (Zinc Sulfate) 220 mg DAILY GTB Last administered on 08/06/18 0 9:01; Admin Dose 220 MG; Start 07/19/18 at 09:00 IV Flush (NS 3 ml) 3 ml PER PROTOCOL IV ; Start 07/18/18 at 18:30 Ondansetron HCl (Zofran Inj) 4 mg Q6H PRN IV NAUSEA AND/OR VOMITING Last administered on 07/23/18 21:38; Admin Dose 4 MG; Start 07/18/18 at 18:30 Albuterol (Proventil 0.083% (Neb)) 2.5 mg Q2H RESP THERAPY PRN NEB SHORTNESS OF BREATH Last administered on 08/06/18 15:46; Admin Dose 2.5 MG; Start 07/18/18 at 18:30 Ipratropium [place] (Atrovent 0.02% (Neb)) 0.5 mg Q2H RESP THERAPY PRN NEB SHORTNESS OF BREATH Last administered on 08/06/18 15:46; Admin Dose 0.5 MG; Start 07/18/18 at 18:30 Acetaminophen (Tylenol Liquid) 650 mg Q6H PRN GTB PAIN LEVEL 1-3 OR FEVER Last administered on 07/24/18 12:05; Admin Dose 650 MG; Start 07/19/18 at 10:30 Acetaminophen/ Hydrocodone Bitart ([place] (5/325)) 1 tab Q6H PRN GTB PAIN LEVEL 4-6 Last administered on 08/04/18 12:13; Admin Dose 1 TAB; Start 07/19/18 at 12:30 Docusate Sodium (Colace Liquid Cup) 100 mg Q12 PRN GTB CONSTIPATION Last administered on 07/27/18 09:25; Admin Dose 100 MG; Start 07/19/18 at 08:00 Docusate Sodium (Colace Liquid Cup) 100 mg QHS GTB Last administered on 08/05/18 21:40; Admin Dose 100 MG; Start 07/19/18 at 21:00 IV Flush (NS 10 ml) 10 ml PRN PRN IV FLUSH LINE; Start 07/19/18 at 18:30 Levetiracetam (Keppra Liquid) 500 mg Q12 GTB Last administered on 08/06/18 09:00; Admin Dose 500 MG; Start 07/20/18 at 21:00 Mupirocin (Bactroban) 1 applic BID TOP Last administered on 08/06/18 09:01; Admin Dose 1 APPLIC; Start 07/21/18 at 21:00 Sodium Hypochlorite (Dakins Diluted (140)) 1 applic BID TP Last administered on 08/06/18 09:01; Admin Dose 1 APPLIC; Start 07/22/18 at 09:00 Collagenase (Santyl) 1 applic BID TOP Last administered on 08/06/18 09:00; Admin Dose 1 APPLIC; Start 07/22/18 at 09:00 Famotidine (Pepcid Iv) 20 mg BID IV Last administered on 08/06/18 09:01; Admin Dose 20 MG; Start 07/23/18 at 21:00 Epoetin [place]-epbx (Retacrit (Non-Esrd)) 10,000 unit MoWeFr@1700 SC Last administered on 08/03/18 17:28; Admin Dose 10,000 UNIT; Start 07/23/18 at 18:30 Metoclopramide HCl (Reglan) 5 mg TID IV Last administered on 08/06/18at 13:24; Admin Dose 5 MG; Start 07/24/18 at 09:00 Quetiapine Fumarate (Seroquel) 75 mg BID GTB Last administered on 08/06/18at 09:00; Admin Dose 75 MG; Start 07/29/18 at 21:00 Bisacodyl (Dulcolax Supp) 10 mg DAILY PRN [place] CONSTIPATION; Start 07/31/18 at 13:30 Alteplase, Recombinant (Cathflo (Activase)) 2 mg MAY REPEAT X1 PRN CATHETER IF CATHETER REMAINS OCCULUDED Last administered on 08/02/18at 15:54; Admin Dose 2 MG; Start 08/02/18 at 14:30 Hydromorphone HCl (Dilaudid) 0.5 mg Q4H PRN IV SEVERE PAIN LEVEL 7-10 Last administered on 08/06/18at 14:42; Admin Dose 0.5 MG; Start 08/06/18 at 01:30 Methylnaltrexone [place] (Relistor) 12 mg DAILY PRN SC constipation; Start 08/06/18 at 09:00 AISSATOU DUNCAN Aug 06, 2018 18:11
[2018-08-06] MEDS: EPOETIN ALFA-EPBX (NON-ESRD 10,000 UNIT/ML VIAL SC SCH (18:57)
[2018-08-06] MEDS: DOCUSATE SODIUM 10 MG/ML (10ML CUP) GTB SCH (20:43)
[2018-08-06] MEDS: ACETAMINOPHEN 650MG/20.3ML CUP GTB PRN (20:43)
[2018-08-06] MEDS ORDERED: SOD CHLORIDE 0.9% 1,000 ML IV ONE (22:00)
[2018-08-07] VITALS (19 sets, daily range): BP systolic 99–128; BP diastolic 63–89; PULSE 96–136; RESP 17–31
[2018-08-07] MEDS: HYDROmorphONE 0.5 MG/0.5 ML SYG IV PRN ×8 (00:51→21:57)
--- NOTE | 2018-08-07 07:22 | CONS ---
Assessment/Plan Assessment/Plan Hospital Course (Demo Recall) 42 year old paraplegic male presents from SNF for sepsis secondary to pnuemonia and UTI was found to ileus vs SBO on KUB with one episode of coffee ground vomit. Trach collar 40% FiO2 with 95% O2 saturation. Tachycardic in low 100s to low 120s. Last bm 08/04. No acute changes. Pending tertiary care placement for trach leak 1. Ileus vs SBO -resolved 2. Anemia, acute on chronic -neg FOB 3. Acute on chronic renal failure -h/o rt nephrectomy -improving 4. Sepsis secondary to pnuemonia and UTI 5. Pneumonia 6. UTI -Acinetobacter Baumannii 7. 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 Vent dependent respiratory failure 9. Dysphagia, s/p g tube 10. Bipolar disorder 11. Constipation -resolved with relistor injection Plan Continue Pepcid and reglan Continue tube feeds DC amitiza (PO only ), continue relistor injection qd prn constipation Tertiary care for trach stoma closure Pt examined and plan of care discussed with Dr. Borjas Consultation Date/Type/Reason Admit Date/Time Jul 18, 2018 at 13:59 Initial Consult Date 07/18/18 Requesting Provider: JOSÉ ANTONIO MIRZA MD Date/Time of Note DATE: 08/07/18 TIME: :19 24 HR Interval Summary Free Text/Dictation No labs this morning. Pt alert/oriented. Denies abd pain, n/v. States he has been having bm. Tolerating tube feeds. Afebrile. Denies chills. Pt had 3 bm yesterday once relistor injection given. Exam/Review of Systems Exam Vitals Vital Signs Date Temp Pulse Resp B/P (MAP) Pulse Ox O2 O2 Flow FiO2 Time Delivery Rate 08/07/18 98.0 98 18 123/89 98 07:17 (100) 08/07/18 40 05:07 Intake and Output 08/06/18 08/06/18 08/07/18 1414:59 22:59 06:59 IntakeIntake Total 940 ml 1400 ml 1800 ml OutputOutput Total 850 ml 400 ml BalanceBalance 90 ml 1000 ml 1800 ml Constitutional: alert Psych: no complaints Head: normocephalic Eyes: nl sclera, PERRL Respiratory: diminished breath sounds Cardiovascular: regular rate and rhythm Gastrointestinal: soft, non-tender Neurological: nl mental status Results Result Diagram: 08/06/18 0552 08/06/1852 Medications Medication Current Medications Bisacodyl (Dulcolax Supp) 10 mg DAILY [place] Last administered on 08/06/18 09:01; Admin Dose 10 MG; Start 07/19/18 at 09:00 Multivitamins Therapeutic (Theragran) 1 tab DAILY GTB Last administered on 08/06/18 09:01; Admin Dose 1 TAB; Start 07/19/18 at 09:00 Zinc Sulfate (Zinc Sulfate) 220 mg DAILY GTB Last administered on 08/06/18 09:01; Admin Dose 220 MG; Start 07/19/18 at 09:00 IV Flush (NS 3 ml) 3 ml PER PROTOCOL IV ; Start 07/18/18 at 18:30 Ondansetron HCl (Zofran Inj) 4 mg Q6H PRN IV NAUSEA AND/OR VOMITING Last administered on 07/23/18 21:38; Admin Dose 4 MG; Start 07/18/18 at 18:30 Albuterol (Proventil 0.083% (Neb)) 2.5 mg Q2H RESP THERAPY PRN NEB SHORTNESS OF BREATH Last administered on 08/06/18 15:46; Admin Dose 2.5 MG; Start 07/18/18 at 18:30 Ipratropium [place] (Atrovent 0.02% (Neb)) 0.5 mg Q2H RESP THERAPY PRN NEB SHORTNESS OF BREATH Last administered on 08/06/18 21:36; Admin Dose 0.5 MG; Start 07/18/18 at 18:30 Acetaminophen (Tylenol Liquid) 650 mg Q6H PRN GTB PAIN LEVEL 1-3 OR FEVER Last administered on 08/06/18 20:43; Admin Dose 650 MG; Start 07/19/18 at 10:30 Acetaminophen/ Hydrocodone Bitart ([place] (5/325)) 1 tab Q6H PRN GTB PAIN LEVEL 4-6 Last administered on 08/04/18 12:13; Admin Dose 1 TAB; Start 07/19/18 at 12:30 Docusate Sodium (Colace Liquid Cup) 100 mg Q12 PRN GTB CONSTIPATION Last administered on 07/27/18 09:25; Admin Dose 100 MG; Start 07/19/18 at 08:00 Docusate Sodium (Colace Liquid Cup) 100 mg QHS GTB Last administered on 08/06/18 20:43; Admin Dose 100 MG; Start 07/19/18 at 21:00 IV Flush (NS 10 ml) 10 ml PRN PRN IV FLUSH LINE; Start 07/19/18 at 18:30 Levetiracetam (Keppra Liquid) 500 mg Q12 GTB Last administered on 08/06/18 20:43; Admin Dose 500 MG; Start 07/20/18 at 21:00 Mupirocin (Bactroban) 1 applic BID TOP Last administered on 08/06/18 20:44; Admin Dose 1 APPLIC; Start 07/21/18 at 21:00 Sodium Hypochlorite (Dakins Diluted ()) 1 applic BID TP Last administered on 08/06/18 20:44; Admin Dose 1 APPLIC; Start 07/22/18 at 09:00 Collagenase (Santyl) 1 applic BID TOP Last administered on 08/06/18 20:42; Admin Dose 1 APPLIC; Start 07/22/18 at 09:00 Famotidine (Pepcid Iv) 20 mg BID IV Last administered on 08/06/18 20:42; Admin Dose 20 MG; Start 07/23/18 at 21:00 Epoetin [place]-epbx (Retacrit (Non-Esrd)) 10,000 unit MoWeFr@1700 SC Last administered on 08/06/18 18:57; Admin Dose 10,000 UNIT; Start 07/23/18 at 18:30 Metoclopramide HCl (Reglan) 5 mg TID IV Last administered on 08/06/18 20:42; Admin Dose 5 MG; Start 07/24/18 at 09:00 Quetiapine Fumarate (Seroquel) 75 mg BID GTB Last administered on 08/06/18 20:43; Admin Dose 75 MG; Start 07/29/18 at 21:00 Bisacodyl (Dulcolax Supp) 10 mg DAILY PRN [place] CONSTIPATION; Start 07/31/18 at 13:30 Alteplase, Recombinant (Cathflo (Activase)) 2 mg MAY REPEAT X1 PRN CATHETER IF CATHETER REMAINS OCCULUDED Last administered on 08/02/18at 15:54; Admin Dose 2 MG; Start 08/02/18 at 14:30 Hydromorphone HCl (Dilaudid) 0.5 mg Q4H PRN IV SEVERE PAIN LEVEL 7-10 Last administered on 08/07/18at 05:11; Admin Dose 0.5 MG; Start 08/06/18 at 01:30 Methylnaltrexone [place] (Relistor) 12 mg DAILY PRN [place] constipation; Start 08/06/18 at 09:00 ISIAH SEYMOUR Aug 07, 2018 07:22
[2018-08-07] MEDS: BISACODYL 10 MG SUPP PR SCH (09:00)
[2018-08-07] MEDS: IPRATROPIUM (NEB) 0.5 MG/2.5 ML AMP NEB PRN ×3 (09:18→18:13)
[2018-08-07] MEDS: ALBUTEROL 0.083% (NEB) 2.5 MG/3 ML AMP NEB PRN ×2 (09:18→15:22)
[2018-08-07] MEDS: METOCLOPRAMIDE 10 MG INJ IV SCH ×3 (09:33→20:42)
[2018-08-07] MEDS: COLLAGENASE 5 GM (UD JAR) TOP SCH ×2 (09:33→20:43)
[2018-08-07] MEDS: FAMOTIDINE 20 MG INJ IV SCH ×2 (09:33→20:42)
[2018-08-07] MEDS: LEVETIRACETAM (100 MG/ML) 5ML CUP GTB SCH ×2 (09:33→20:42)
[2018-08-07] MEDS: BALSAM PERU/CASTOR OIL 60 GM TUBE TOP SCH ×2 (09:34→20:42)
[2018-08-07] MEDS: MULTIVITAMINS THERAPEUTIC TAB GTB SCH (09:34)
[2018-08-07] MEDS: MUPIROCIN 2% 22 GM OINT TOP SCH ×2 (09:34→20:43)
[2018-08-07] MEDS: ZINC SULFATE 220 MG CAP GTB SCH (09:34)
[2018-08-07] MEDS: QUETIAPINE 25 MG TAB GTB SCH ×2 (09:35→20:42)
[2018-08-07] MEDS: DAKINS 0.0125%(1/40) 473 ML SOLUTION TP SCH ×2 (09:38→20:42)
--- NOTE | 2018-08-07 10:18 | CONS ---
Assessment/Plan Assessment/Plan Assessment/Plan (Daily) 1. Acute kidney injury on CKD IV due to severe prerenal azotemia 2. Septic shock s/p levophed in ICU 3. PNA concerned about HCAP 4. UTI with Urine Cx growing Acinetobacter 5. 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 Ventilator dependant respiratory failure s/p Tracheostomy 7. S/p G tube placement 8. 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 H/o Right nephrectomy with left Nephrolithiasis 10 .H/o Bipolar disorder 12. Severe Anemia possibly due to Combination of Anemia of CKD + acute blood loss anemia s/p PRBC transfusion during this admission Plan: BUN/Cr 54/1.92, Na 151, Bp stable , d/c IVF NS, Start D5W at 125 cc/hr x 2 liter then stop s/p PRBC transfusion during this admission, continue Epogen 71751 units SQ MWF s/p IV abx for UTI, now off antibiotic, renally dose all medications and monitor electrolytes, replace as needed We will continue to follow up Consultation Date/Type/Reason Admit Date/Time Jul 18, 2018 at 13:59 Initial Consult Date 07/18/18 Type of Consult NEPHROLOGY Requesting Provider: JOSÉ ANTONIO MIRZA MD Date/Time of Note DATE: 08/07/18 TIME: 10:18 24 HR Interval Summary Free Text/Dictation BUN/Cr 54/1.92, Na 151, Bp stable Exam/Review of Systems Exam Vitals Vital Signs Date Temp Pulse Resp B/P (MAP) Pulse Ox O2 O2 Flow FiO2 Time Delivery Rate 08/07/18 98.0 115 22 123/80 96 Mechanical 07:40 (94) Ventilator Trach Collar 08/07/18 40 05:07 Intake and Output 08/06/18 08/06/18 08/07/18 1515:00 23:00 07:00 IntakeIntake Total 820 ml 2400 ml 800 ml OutputOutput Total 400 ml BalanceBalance 820 ml 2000 ml 800 ml Exam Constitutional: non-verbal, awake, alert, no acute distress Head: normocephalic ENMT: other (+ tracheostomy ) Neck: supple, no JVD Respiratory: diminished breath sounds, other (Bilateral coarse BS +) Gastrointestinal: soft, non-tender Musculoskeletal: other (Paraplegia ) Neurological: alert, awake, Results Result Diagram: 08/06/18 0552 08/06/18 0552 Medications Medication Current Medications Bisacodyl (Dulcolax Supp) 10 mg DAILY [place] Last administered on 08/06/18 09:01; Admin Dose 10 MG; Start 07/19/18 at 09:00 Multivitamins Therapeutic (Theragran) 1 tab DAILY GTB Last administered on 08/07/18 09:34; Admin Dose 1 TAB; Start 07/19/18 at 09:00 Zinc Sulfate (Zinc Sulfate) 220 mg DAILY GTB Last administered on 08/07/18 09:34; Admin Dose 220 MG; Start 07/19/18 at 09:00 IV Flush (NS 3 ml) 3 ml PER PROTOCOL IV ; Start 07/18/18 at 18:30 Ondansetron HCl (Zofran Inj) 4 mg Q6H PRN IV NAUSEA AND/OR VOMITING Last administered on 07/23/18 21:38; Admin Dose 4 MG; Start 07/18/18 at 18:30 Albuterol (Proventil 0.083% (Neb)) 2.5 mg Q2H RESP THERAPY PRN NEB SHORTNESS OF BREATH Last administered on 08/07/18 09:18; Admin Dose 2.5 MG; Start 07/18/18 at 18:30 Ipratropium [place] (Atrovent 0.02% (Neb)) 0.5 mg Q2H RESP THERAPY PRN NEB SHORTNESS OF BREATH Last administered on 08/07/18 09:18; Admin Dose 0.5 MG; Start 07/18/18 at 18:30 Acetaminophen (Tylenol Liquid) 650 mg Q6H PRN GTB PAIN LEVEL 1-3 OR FEVER Last administered on 08/06/18 20:43; Admin Dose 650 MG; Start 07/19/18 at 10:30 Acetaminophen/ Hydrocodone Bitart ([place] (5/325)) 1 tab Q6H PRN GTB PAIN LEVEL 4-6 Last administered on 08/04/18 12:13; Admin Dose 1 TAB; Start 07/19/18 at 12:30 Docusate Sodium (Colace Liquid Cup) 100 mg Q12 PRN GTB CONSTIPATION Last administered on 07/27/18 09:25; Admin Dose 100 MG; Start 07/19/18 at 08:00 Docusate Sodium (Colace Liquid Cup) 100 mg QHS GTB Last administered on 08/06/18 at 20:43; Admin Dose 100 MG; Start 07/19/18 at 21:00 IV Flush (NS 10 ml) 10 ml PRN PRN IV FLUSH LINE; Start 07/19/18 at 18:30 Levetiracetam (Keppra Liquid) 500 mg Q12 GTB Last administered on 08/07/18 09:33; Admin Dose 500 MG; Start 07/20/18 at 21:00 Mupirocin (Bactroban) 1 applic BID TOP Last administered on 08/07/18 09:34; Admin Dose 1 APPLIC; Start 07/21/18 at 21:00 Sodium Hypochlorite (Dakins Diluted ()) 1 applic BID TP Last administered on 08/07/18 09:38; Admin Dose 1 APPLIC; Start 07/22/18 at 09:00 Collagenase (Santyl) 1 applic BID TOP Last administered on 08/07/18 09:33; Admin Dose 1 APPLIC; Start 07/22/18 at 09:00 Famotidine (Pepcid Iv) 20 mg BID IV Last administered on 08/07/18 09:33; Admin Dose 20 MG; Start 07/23/18 at 21:00 Epoetin [place]-epbx (Retacrit (Non-Esrd)) 10,000 unit MoWeFr@1700 SC Last administered on 08/06/18at 18:57; Admin Dose 10,000 UNIT; Start 07/23/18 at 18:30 Metoclopramide HCl (Reglan) 5 mg TID IV Last administered on 08/07/18 09:33; Admin Dose 5 MG; Start 07/24/18 at 09:00 Quetiapine Fumarate (Seroquel) 75 mg BID GTB Last administered on 08/07/18 09:35; Admin Dose 75 MG; Start 07/29/18 at 21:00 Bisacodyl (Dulcolax Supp) 10 mg DAILY PRN [place] CONSTIPATION; Start 07/31/18 at 13:30 Alteplase, Recombinant (Cathflo (Activase)) 2 mg MAY REPEAT X1 PRN CATHETER IF CATHETER REMAINS OCCULUDED Last administered on 08/02/18at 15:54; Admin Dose 2 MG; Start 08/02/18 at 14:30 Hydromorphone HCl (Dilaudid) 0.5 mg Q4H PRN IV SEVERE PAIN LEVEL 7-10 Last adm inistered on 08/07/18at 09:36; Admin Dose 0.5 MG; Start 08/06/18 at 01:30 Methylnaltrexone [place] (Relistor) 12 mg DAILY PRN [place] constipation; Start 08/06/18 at 09:00 TIARA CISNEROS MD Aug 07, 2018 10:18
[2018-08-07] MEDS: DEXTROSE 5% 1,000 ML IV SCH ×3 (11:17→21:08)
--- NOTE | 2018-08-07 11:54 | CONS ---
Assessment/Plan Assessment/Plan Hospital Course (Demo Recall) S/p hypotensive episode, Tm 99.9, nad Antimicrobials: none Microbiology: Urine culture grew Acinetobacter susceptible to gentamicin tobramycin and Bactrim, blood cultures negative===> treated Allergies: Tetracyclines Indwelling: Trach, PEG, PICC line, suprapubic catheter Physical examination: Chronically ill-appearing wasted middle-aged man who is awake in no distress. Head atraumatic normocephalic sclera nonicteric vehicle mucosa dry neck is supple tracheostomy present chest rise symmetrical breath sounds diminished the bases. Heart: S1-S2. Abdomen soft bowel sounds present. Extremities wasted contractured Assessment: 1. Status post septic shock 2. Recurrent UTI/acute pyelonephritis, treated 3. Acute on chronic respiratory failure 4. Acute on chronic kidney disease 5. Incomplete quadriplegia 6. Anemia and thrombocytopenia 7. History of left breast nephrectomy 8. Multiple chronic decubitus ulcers 9. Diarrhea, rule out C. difficile 10. MRSA colonization of the naris Plan: Will repeat cx's and cxr Consultation Date/Type/Reason Admit Date/Time Jul 18, 2018 at 13:59 Initial Consult Date 07/18/18 Type of Consult id Requesting Provider: JOSÉ ANTONIO MIRZA MD Date/Time of Note DATE: 08/07/18 TIME: 11:52 Exam/Review of Systems Exam Vitals Vital Signs Date Temp Pulse Resp B/P (MAP) Pulse Ox O2 O2 Flow FiO2 Time Delivery Rate 08/07/18 40 08:00 08/07/18 98.0 115 22 123/80 96 Mechanical 07:40 (94) Ventilator Trach Collar Intake and Output 08/06/18 08/06/18 08/07/18 1515:00 23:00 07:00 IntakeIntake Total 820 ml 2400 ml 800 ml OutputOutput Total 400 ml BalanceBalance 820 ml 2000 ml 800 ml Results Result Diagram: 08/06/18 0552 08/06/18 0552 Medications Medication Current Medications Bisacodyl (Dulcolax Supp) 10 mg DAILY [place] Last administered on 08/06/18at 09:01; Admin Dose 10 MG; Start 07/19/18 at 09:00 Multivitamins Therapeutic (Theragran) 1 tab DAILY GTB Last administered on 08/07/18at 09:34; Admin Dose 1 TAB; Start 07/19/18 at 09:00 Zinc Sulfate (Zinc Sulfate) 220 mg DAILY GTB Last administered on 08/07/18 09:34; Admin Dose 220 MG; Start 07/19/18 at 09:00 IV Flush (NS 3 ml) 3 ml PER PROTOCOL IV ; Start 07/18/18 at 18:30 Ondansetron HCl (Zofran Inj) 4 mg Q6H PRN IV NAUSEA AND/OR VOMITING Last administered on 07/23/18 21:38; Admin Dose 4 MG; Start 07/18/18 at 18:30 Albuterol (Proventil 0.083% (Neb)) 2.5 mg Q2H RESP THERAPY PRN NEB SHORTNESS OF BREATH Last administered on 08/07/18 09:18; Admin Dose 2.5 MG; Start 07/18/18 at 18:30 Ipratropium [place] (Atrovent 0.02% (Neb)) 0.5 mg Q2H RESP THERAPY PRN NEB SHORTNESS OF BREATH Last administered on 08/07/18 09:18; Admin Dose 0.5 MG; Start 07/18/18 at 18:30 Acetaminophen (Tylenol Liquid) 650 mg Q6H PRN GTB PAIN LEVEL 1-3 OR FEVER Last administered on 08/06/18 20:43; Admin Dose 650 MG; Start 07/19/18 at 10:30 Acetaminophen/ Hydrocodone Bitart ([place] (5/325)) 1 tab Q6H PRN GTB PAIN LEVEL 4-6 Last administered on 08/04/18 12:13; Admin Dose 1 TAB; Start 07/19/18 at 12:30 Docusate Sodium (Colace Liquid Cup) 100 mg Q12 PRN GTB CONSTIPATION Last administered on 07/27/18 09:25; Admin Dose 100 MG; Start 07/19/18 at 08:00 Docusate Sodium (Colace Liquid Cup) 100 mg QHS GTB Last administered on 08/06/18 20:43; Admin Dose 100 MG; Start 07/19/18 at 21:00 IV Flush (NS 10 ml) 10 ml PRN PRN IV FLUSH LINE; Start 07/19/18 at 18:30 Levetiracetam (Keppra Liquid) 500 mg Q12 GTB Last administered on 08/07/18 09:33; Admin Dose 500 MG; Start 07/20/18 at 21:00 Mupirocin (Bactroban) 1 applic BID TOP Last administered on 08/07/18 09:34; Admin Dose 1 APPLIC; Start 07/21/18 at 21:00 Sodium Hypochlorite (Dakins Diluted ()) 1 applic BID TP Last administered on 08/07/18 09:38; Admin Dose 1 APPLIC; Start 07/22/18 at 09:00 Collagenase (Santyl) 1 applic BID TOP Last administered on 08/07/18 09:33; Admin Dose 1 APPLIC; Start 07/22/18 at 09:00 Famotidine (Pepcid Iv) 20 mg BID IV Last administered on 08/07/18 09:33; Admin Dose 20 MG; Start 07/23/18 at 21:00 Epoetin [place]-epbx (Retacrit (Non-Esrd)) 10,000 unit MoWeFr@1700 SC Last administered on 08/06/18 18:57; Admin Dose 10,000 UNIT; Start 07/23/18 at 18:30 Metoclopramide HCl (Reglan) 5 mg TID IV Last administered on 08/07/18 09:33; Ad min Dose 5 MG; Start 07/24/18 at 09:00 Quetiapine Fumarate (Seroquel) 75 mg BID GTB Last administered on 08/07/18 09:35; Admin Dose 75 MG; Start 07/29/18 at 21:00 Bisacodyl (Dulcolax Supp) 10 mg DAILY PRN [place] CONSTIPATION; Start 07/31/18 at 13:30 Alteplase, Recombinant (Cathflo (Activase)) 2 mg MAY REPEAT X1 PRN CATHETER IF CATHETER REMAINS OCCULUDED Last administered on 08/02/18 15:54; Admin Dose 2 MG; Start 08/02/18 at 14:30 Hydromorphone HCl (Dilaudid) 0.5 mg Q4H PRN IV SEVERE PAIN LEVEL 7-10 Last administered on 08/07/18 09:36; Admin Dose 0.5 MG; Start 08/06/18 at 01:30 Methylnaltrexone [place] (Relistor) 12 mg DAILY PRN [place] constipation; Start 08/06/18 at 09:00 Dextrose 1,000 ml @ 125 mls/hr Q8H IV Last administered on 08/07/18at 11:17; Admin Dose 125 MLS/HR; Start 08/07/18 at 10:30; Stop 08/08/18 at 02:29 REGINALDO CHERY NP Aug 07, 2018 11:54
--- NOTE | 2018-08-07 15:05 | PN ---
DATE: 08/07/2018 SUBJECTIVE: The patient is on long-term ventilator support. His breathing appears comfortable. He has not had any problems like desaturation or shortness of breath. He is fully awake, alert and able to communicate and respond. PHYSICAL EXAMINATION: VITAL SIGNS: Stable. No fever spikes. Temperature 98, blood pressure , pulse rate 100, respir ations 18, pulse oximetry 99% saturation. He is on 40% oxygen. NECK: Tracheal secretions are clear. No bleeding seen. HEART: Regular rhythm. CHEST: Breath sounds are diminished in lower lung tierney at the lung bases with a few intermittent r ales and rhonchi. ABDOMEN: Soft, tolerating G-tube feedings. Normal bowel sounds. No distention seen. EXTREMITIES: Show no edema. He is paraplegic. LABORATORY DATA: Show sodium 151, potassium 4.1, BUN 54, creatinine 1.92, glucose 116. The CBC show s WBC 10,200, hemoglobin 9.1, hematocrit 32.3, platelets 154,000. The patient has been off antibiotics. IMPRESSION: 1. Chronic ventilator dependent respiratory failure. 2. Resolving sepsis. 3. Chronic kidney disease with acute kidney injury, improving. 4. Chronic anemia. 5. History of nephrolithiasis. 6. Paraplegia. 7. History of spinal cord injury in the past. 8. History of bipolar disorder. RECOMMENDATIONS: 1. Continue long-term ventilator support. 2. Continue bronchodilator inhalation therapy. 3. Continue tube feedings. 4. Continue hydration. 5. 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 Dictated By: HUMBERTO PEREZ MD SR/NTS Conf#: [id number] DID#: [id number] CC: JOSÉ ANTONIO MIRZA MD;*EndCC*
--- NOTE | 2018-08-07 16:17 | PN ---
Date/Time of Note Date/Time of Note DATE: 08/07/18 TIME: 16:15 Assessment/Plan VTE Prophylaxis Risk score (from Nsg)>0 risk: 7 SCD applied (from Nsg): Yes Pharmacological prophylaxis: LMWH Lines/Catheters IV Catheter Type (from Nrsg): PICC Line Central line still needed: Yes Urinary Cath still in place: Yes Reason Cath still needed: urinary retention Assessment/Plan Hospital Course Patient is awake alert, continues on vent. Hypernatremia with slight improvement, today sodium was 151. Plan of care discussed with Jaclyn, case management. Plan for for tertiary facility transfer for a large tracheal stoma closure with flap. Assessment/Plan - Hypernatremia, continue free water with GT, IVF with D5W. Dr. Barker is fol luis in nephrology consultation. - Large tracheal opening, s/p evaluation by Dr Woodruff in ENT consultation with recommendation to transfer to tertiary care center for free flap closure. - Anemia of chronic disease. S/p blood transfusion, continue Epogen. Stool for OB is neg. Dr. Borjas is following in gastroenterology consultation. - Ileus versus small bowel obstruction, resolved. - Sepsis with shock injury to possible healthcare acquired pneumonia and UTI, completed treatment with abx. Dr. Maciel is following in infection disease consultation. - Acute on chronic renal failure. Continue to monitor BUN and creatinine. - Ventilator dependent respiratory failure, continue pulmonary toilet and bronchodilators. Dr Ames is following in pulmonology consultation. - Neurogenic bladder with suprapubic catheter. - Dysphagia with gastrostomy tube. - Multiple decubitus ulcers present on admission. - Cervical spine injury with paraplegia. - Bipolar disorder with psychosis. - Hx of right nephrectomy - Hx of left renal nephrolithiasis, hx of lithotripsy with insertion and subsequent removal of ureteral JJ stent. Further recommendations based on clinical course. Plan of care discussed with Dr. Barreto. Result Diagram: 08/06/18 0552 08/07/18 1105 Results 24hrs Laboratory Tests Test 08/07/18 11:05 Sodium Level 151 H Potassium Level 4.1 Chloride Level 118 H Carbon Dioxide Level 24 Anion Gap 9 Blood Urea Nitrogen 54 H Creatinine 1.92 H Est Glomerular Filtrat Rate mL/min 39 L Glucose Level 116 Calcium Level 9.0 Exam/Review of Systems Exam Vitals Vital Signs Date Temp Pulse Resp B/P (MAP) Pulse Ox O2 O2 Flow FiO2 Time Delivery Rate 08/07/18 98.2 100 18 118/80 99 11:58 (93) 08/07/18 40 11:14 08/07/18 Mechanical 07:40 Ventilator Trach Collar Intake and Output 08/06/18 08/06/18 08/07/18 1515:00 23:00 07:00 IntakeIntake Total 820 ml 2400 ml 800 ml OutputOutput Total 400 ml BalanceBalance 820 ml 2000 ml 800 ml Exam Constitutional: alert, awake Neck: supple, other (Tracheostomy) Respiratory: diminished breath sounds Cardiovascular: regular rate and rhythm Gastrointestinal: soft, non-tender, other (G-tube) Genitourinary - Male: other (Suprapubic catheter) Extremities: normal pulses, other (Contracted) Neurological: other (Paraplegia) Skin: other (Multiple wounds) Results Results 24hrs Laboratory Tests Test 08/07/18 11:05 Sodium Level 151 H Potassium Level 4.1 Chloride Level 118 H Carbon Dioxide Level 24 Anion Gap 9 Blood Urea Nitrogen 54 H Creatinine 1.92 H Est Glomerular Filtrat Rate mL/min 39 L Glucose Level 116 Calcium Level 9.0 Medications Medication Current Medications Bisacodyl (Dulcolax Supp) 10 mg DAILY [place] Last administered on 08/06/18 09:01; Admin Dose 10 MG; Start 07/19/18 at 09:00 Multivitamins Therapeutic (Theragran) 1 tab DAILY GTB Last administered on 08/07/18 09:34; Admin Dose 1 TAB; Start 07/19/18 at 09:00 Zinc Sulfate (Zinc Sulfate) 220 mg DAILY GTB Last administered on 08/07/18 09:34; Admin Dose 220 MG; Start 07/19/18 at 09:00 IV Flush (NS 3 ml) 3 ml PER PROTOCOL IV ; Start 07/18/18 at 18:30 Ondansetron HCl (Zofran Inj) 4 mg Q6H PRN IV NAUSEA AND/OR VOMITING Last administered on 07/23/18at 21:38; Admin Dose 4 MG; Start 07/18/18 at 18:30 Albuterol (Proventil 0.083% (Neb)) 2.5 mg Q2H RESP THERAPY PRN NEB SHORTNESS OF BREATH Last administered on 08/07/18at 15:22; Admin Dose 2.5 MG; Start 07/18/18 at 18:30 Ipratropium [place] (Atrovent 0.02% (Neb)) 0.5 mg Q2H RESP THERAPY PRN NEB SHORTNESS OF BREATH Last administered on 08/07/18 15:22; Admin Dose 0.5 MG; Start 07/18/18 at 18:30 Acetaminophen (Tylenol Liquid) 650 mg Q6H PRN GTB PAIN LEVEL 1-3 OR FEVER Last administered on 08/06/18 20:43; Admin Dose 650 MG; Start 07/19/18 at 10:30 Acetaminophen/ Hydrocodone Bitart ([place] (5/325)) 1 tab Q6H PRN GTB PAIN LEVEL 4-6 Last administered on 08/04/18 12:13; Admin Dose 1 TAB; Start 07/19/18 at 12:30 Docusate Sodium (Colace Liquid Cup) 100 mg Q12 PRN GTB CONSTIPATION Last administered on 07/27/18 09:25; Admin Dose 100 MG; Start 07/19/18 at 08:00 Docusate Sodium (Colace Liquid Cup) 100 mg QHS GTB Last administered on 08/06/18 20:43; Admin Dose 100 MG; Start 07/19/18 at 21:00 IV Flush (NS 10 ml) 10 ml PRN PRN IV FLUSH LINE; Start 07/19/18 at 18:30 Levetiracetam (Keppra Liquid) 500 mg Q12 GTB Last administered on 08/07/18 09:33; Admin Dose 500 MG; Start 07/20/18 at 21:00 Mupirocin (Bactroban) 1 applic BID TOP Last administered on 08/07/18 09:34; Admin Dose 1 APPLIC; Start 07/21/18 at 21:00 Sodium Hypochlorite (Dakins Diluted ()) 1 applic BID TP Last administered on 08/07/18 09:38; Admin Dose 1 APPLIC; Start 07/22/18 at 09:00 Collagenase (Santyl) 1 applic BID TOP Last administered on 08/07/18 09:33; Admin Dose 1 APPLIC; Start 07/22/18 at 09:00 Famotidine (Pepcid Iv) 20 mg BID IV Last administered on 08/07/18 09:33; Admin Dose 20 MG; Start 07/23/18 at 21:00 Epoetin Prince-epbx (Retacrit (Non-Esrd)) 10,000 unit MoWeFr@1700 SC Last administered on 08/06/18 18:57; Admin Dose 10,000 UNIT; Start 07/23/18 at 18:30 Metoclopramide HCl (Reglan) 5 mg TID IV Last administered on 08/07/18 13:44; Admin Dose 5 MG; Start 07/24/18 at 09:00 Quetiapine Fumarate (Seroquel) 75 mg BID GTB Last administered on 08/07/18 09:35; Admin Dose 75 MG; Start 07/29/18 at 21:00 Bisacodyl (Dulcolax Supp) 10 mg DAILY PRN [place] CONSTIPATION; Start 07/31/18 at 13:30 Alteplase, Recombinant (Cathflo (Activase)) 2 mg MAY REPEAT X1 PRN CATHETER IF CATHETER REMAINS OCCULUDED Last administered on 08/02/18at 15:54; Admin Dose 2 MG; Start 08/02/18 at 14:30 Hydromorphone HCl (Dilaudid) 0.5 mg Q4H PRN IV SEVERE PAIN LEVEL 7-10 Last administered on 08/07/18 14:38; Admin Dose 0.5 MG; Start 08/06/18 at 01:30 Methylnaltrexone [place] (Relistor) 12 mg DAILY PRN [place] constipation; Start 08/06/18 at 09:00 Dextrose 1,000 ml @ 125 mls/hr Q8H IV Last administered on 08/07/18 11:17; Admin Dose 125 MLS/HR; Start 08/07/18 at 10:30; Stop 08/08/18 at 02:29 AISSATOU DUNCAN Aug 07, 2018 16:17
[2018-08-07] MEDS: LEVALBUTEROL (NEB) 0.63 MG/3 ML AMP HHN PRN (18:13)
[2018-08-07] MEDS: HYDROCODONE/APAP (5/325) TAB GTB PRN (19:01)
[2018-08-07] MEDS: DOCUSATE SODIUM 10 MG/ML (10ML CUP) GTB SCH (20:42)
[2018-08-07] MEDS: ACETAMINOPHEN 650MG/20.3ML CUP GTB PRN (20:49)
[2018-08-08] VITALS (18 sets, daily range): BP systolic 103–125; BP diastolic 68–97; PULSE 112–126; RESP 20–27
[2018-08-08] MEDS: HYDROmorphONE 0.5 MG/0.5 ML SYG IV PRN ×5 (01:37→19:08)
[2018-08-08] MEDS: COLLAGENASE 5 GM (UD JAR) TOP SCH ×2 (08:25→20:32)
[2018-08-08] MEDS: METOCLOPRAMIDE 10 MG INJ IV SCH ×3 (08:26→20:32)
[2018-08-08] MEDS: FAMOTIDINE 20 MG INJ IV SCH ×2 (08:26→20:32)
[2018-08-08] MEDS: QUETIAPINE 25 MG TAB GTB SCH ×2 (08:26→20:32)
[2018-08-08] MEDS: ZINC SULFATE 220 MG CAP GTB SCH (08:26)
[2018-08-08] MEDS: LEVETIRACETAM (100 MG/ML) 5ML CUP GTB SCH ×2 (08:26→20:32)
[2018-08-08] MEDS: MULTIVITAMINS THERAPEUTIC TAB GTB SCH (08:26)
[2018-08-08] MEDS: BISACODYL 10 MG SUPP PR SCH ×2 (08:26→09:00)
[2018-08-08] MEDS: BALSAM PERU/CASTOR OIL 60 GM TUBE TOP SCH ×2 (08:36→20:33)
[2018-08-08] MEDS: DAKINS 0.0125%(1/40) 473 ML SOLUTION TP SCH ×2 (08:36→20:33)
[2018-08-08] MEDS: MUPIROCIN 2% 22 GM OINT TOP SCH ×2 (08:36→20:33)
--- NOTE | 2018-08-08 11:28 | CONS ---
Assessment/Plan Assessment/Plan Assessment/Plan (Daily) 1. Acute kidney injury on CKD IV due to severe prerenal azotemia 2. Septic shock s/p levophed in ICU 3. PNA concerned about HCAP 4. UTI with Urine Cx growing Acinetobacter 5. 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 Ventilator dependant respiratory failure s/p Tracheostomy 7. S/p G tube placement 8. 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 H/o Right nephrectomy with left Nephrolithiasis 10 .H/o Bipolar disorder 12. Severe Anemia possibly due to Combination of Anemia of CKD + acute blood loss anemia s/p PRBC transfusion during this admission Plan: BUN/Cr 58/1.73, Na 151, Bp stable , d/c IVF NS, will monitor renal function s/p PRBC transfusion during this admission, continue Epogen 28075 units SQ MWF s/p IV abx for UTI, now off antibiotic, renally dose all medications and monitor electrolytes, replace as needed We will continue to follow up Consultation Date/Type/Reason Admit Date/Time Jul 18, 2018 at 13:59 Initial Consult Date 07/18/18 Type of Consult NEPHROLOGY Requesting Provider: JOSÉ ANTONIO MIRZA MD Date/Time of Note DATE: 08/08/18 TIME: 11:28 Exam/Review of Systems Exam Vitals Vital Signs Date Temp Pulse Resp B/P (MAP) Pulse Ox O2 O2 Flow FiO2 Time Delivery Rate 08/08/18 97.8 120 21 104/74 93 Mechanical 11:25 (84) Ventilator Trach Collar 08/08/18 40 10:45 Intake and Output 08/07/18 08/07/18 08/08/18 1515:00 23:00 07:00 IntakeIntake Total 820 ml 2780 ml 1880 ml OutputOutput Total 900 ml 1000 ml BalanceBalance 820 ml 1880 ml 880 ml Results Result Diagram: 08/06/18 0552 08/08/18 0555 Results 24hrs Laboratory Tests Test 08/08/18 05:55 Sodium Level 149 H Potassium Level 4.6 Chloride Level 117 H Carbon Dioxide Level 23 Anion Gap 9 Blood Urea Nitrogen 58 H Creatinine 1.73 H Est Glomerular Filtrat Rate mL/min 44 L Glucose Level 92 Calcium Level 8.9 Medications Medication Current Medications Bisacodyl (Dulcolax Supp) 10 mg DAILY [place] Last administered on 08/08/18 08:26; Admin Dose 10 MG; Start 07/19/18 at 09:00 Multivitamins Therapeutic (Theragran) 1 tab DAILY GTB Last administered on 08/08/18 08:26; Admin Dose 1 TAB; Start 07/19/18 at 09:00 Zinc Sulfate (Zinc Sulfate) 220 mg DAILY GTB Last administered on 08/08/18 08:26; Admin Dose 220 MG; Start 07/19/18 at 09:00 IV Flush (NS 3 ml) 3 ml PER PROTOCOL IV ; Start 07/18/18 at 18:30 Ondansetron HCl (Zofran Inj) 4 mg Q6H PRN IV NAUSEA AND/OR VOMITING Last administered on 07/23/18 21:38; Admin Dose 4 MG; Start 07/18/18 at 18:30 Ipratropium [place] (Atrovent 0.02% (Neb)) 0.5 mg Q2H RESP THERAPY PRN NEB SHORTNESS OF BREATH Last administered on 08/07/18 18:13; Admin Dose 0.5 MG; Start 07/18/18 at 18:30 Acetaminophen (Tylenol Liquid) 650 mg Q6H PRN GTB PAIN LEVEL 1-3 OR FEVER Last administered on 08/07/18 20:49; Admin Dose 650 MG; Start 07/19/18 at 10:30 Acetaminophen/ Hydrocodone Bitart ([place] (5/325)) 1 tab Q6H PRN GTB PAIN LEVEL 4-6 Last administered on 08/07/18 19:01; Admin Dose 1 TAB; Start 07/19/18 at 12:30 Docusate Sodium (Colace Liquid Cup) 100 mg Q12 PRN GTB CONSTIPATION Last administered on 07/27/18 09:25; Admin Dose 100 MG; Start 07/19/18 at 08:00 Docusate Sodium (Colace Liquid Cup) 100 mg QHS GTB Last administered on 08/07/18 20:42; Admin Dose 100 MG; Start 07/19/18 at 21:00 IV Flush (NS 10 ml) 10 ml PRN PRN IV FLUSH LINE; Start 07/19/18 at 18:30 Levetiracetam (Keppra Liquid) 500 mg Q12 GTB Last administered on 08/08/18 08:26; Admin Dose 500 MG; Start 07/20/18 at 21:00 Mupirocin (Bactroban) 1 applic BID TOP Last administered on 08/08/18 08:36; Admin Dose 1 APPLIC; Start 07/21/18 at 21:00 Sodium Hypochlorite (Dakins Diluted ()) 1 applic BID TP Last administered on 08/08/18 08:36; Admin Dose 1 APPLIC; Start 07/22/18 at 09:00 Collagenase (Santyl) 1 applic BID TOP Last administered on 08/08/18 08:25; Admin Dose 1 APPLIC; Start 07/22/18 at 09:00 Famotidine (Pepcid Iv) 20 mg BID IV Last administered on 08/08/18 08:26; Admin Dose 20 MG; Start 07/23/18 at 21:00 Epoetin [place]-epbx (Retacrit (Non-Esrd)) 10,000 unit MoWeFr@1700 SC Last administered on 08/06/18 18:57; Admin Dose 10,000 UNIT; Start 07/23/18 at 18:30 Metoclopramide HCl (Reglan) 5 mg TID IV Last administered on 08/08/18 08:26; Admin Dose 5 MG; Start 07/24/18 at 09:00 Quetiapine Fumarate (Seroquel) 75 mg BID GTB Last administered on 08/08/18 08:26; Admin Dose 75 MG; Start 07/29/18 at 21:00 Bisacodyl (Dulcolax Supp) 10 mg DAILY PRN [place] CONSTIPATION; Start 07/31/18 at 13:30 Alteplase, Recombinant (Cathflo (Activase)) 2 mg MAY REPEAT X1 PRN CATHETER IF CATHETER REMAINS OCCULUDED Last administered on 08/02/18 15:54; Admin Dose 2 MG; Start 08/02/18 at 14:30 Hydromorphone HCl (Dilaudid) 0.5 mg Q4H PRN IV SEVERE PAIN LEVEL 7-10 Last administered on 08/08/18 11:00; Admin Dose 0.5 MG; Start 08/06/18 at 01:30 Methylnaltrexone [place] (Relistor) 12 mg DAILY PRN [place] constipation; Start 08/06/18 at 09:00 Levalbuterol (Xopenex Neb) 0.63 mg Q2H RESP THERAPY PRN HHN SHORTNESS OF BREATH Last administered on 08/07/18at 18:13; Admin Dose 0.63 MG; Start 08/07/18 at 17:30 TIARA CISNEROS MD Aug 08, 2018 11:28
--- NOTE | 2018-08-08 14:09 | CONS ---
Assessment/Plan Assessment/Plan Hospital Course (Demo Recall) Patient had been spiking low-grade fevers with a T-max of 100.4 this morning currently afebrile no labs, blood and urine cultures pending Antimicrobials: none Microbiology: Urine culture grew Acinetobacter susceptible to gentamicin tobramycin and Bactrim, blood cultures negative===> treated Allergies: Tetracyclines Indwelling: Trach, PEG, PICC line, suprapubic catheter Physical examination: Chronically ill-appearing wasted middle-aged man who is awake in no distress. Head atraumatic normocephalic sclera nonicteric vehicle mucosa dry neck is supple tracheostomy present chest rise symmetrical breath sounds diminished the bases. Heart: S1-S2. Abdomen soft bowel sounds present. Extremities wasted contractured Assessment: 1. Ongoing fevers, possibly recurrent sepsis 2. Recurrent UTI/acute pyelonephritis, treated 3. Acute on chronic respiratory failure 4. Acute on chronic kidney disease 5. Incomplete quadriplegia 6. Anemia and thrombocytopenia 7. History of left breast nephrectomy 8. Multiple chronic decubitus ulcers 9. Diarrhea, rule out C. difficile 10. MRSA colonization of the naris Plan: Start gentamicin, check chest x-ray, await for blood and urine cultures Consultation Date/Type/Reason Admit Date/Time Jul 18, 2018 at 13:59 Initial Consult Date 07/18/18 Type of Consult id Requesting Provider: JOSÉ ANTONIO MIRZA MD Date/Time of Note DATE: 08/08/18 TIME: 14:08 Exam/Review of Systems Exam Vitals Vital Signs Date Temp Pulse Resp B/P (MAP) Pulse Ox O2 O2 Flow FiO2 Time Delivery Rate 08/08/18 118 20 96 40 13:30 08/08/18 97.8 104/74 Mechanical 11:25 (84) Ventilator Trach Collar Intake and Output 08/07/18 08/07/18 08/08/18 1414:59 22:59 06:59 IntakeIntake Total 820 ml 2780 ml 1880 ml OutputOutput Total 900 ml 1000 ml BalanceBalance 820 ml 1880 ml 880 ml Results Result Diagram: 08/06/18 0552 08/08/18 0555 Results 24hrs Laboratory Tests Test 08/08/18 05:55 Sodium Level 149 H Potassium Level 4.6 Chloride Level 117 H Carbon Dioxide Level 23 Anion Gap 9 Blood Urea Nitrogen 58 H Creatinine 1.73 H Est Glomerular Filtrat Rate mL/min 44 L Glucose Level 92 Calcium Level 8.9 Medications Medication Current Medications Bisacodyl (Dulcolax Supp) 10 mg DAILY [place] Last administered on 08/08/18 08:26; Admin Dose 10 MG; Start 07/19/18 at 09:00 Multivitamins Therapeutic (Theragran) 1 tab DAILY GTB Last administered on 08/08/18 08:26; Admin Dose 1 TAB; Start 07/19/18 at 09:00 Zinc Sulfate (Zinc Sulfate) 220 mg DAILY GTB Last administered on 08/08/18 08:26; Admin Dose 220 MG; Start 07/19/18 at 09:00 IV Flush (NS 3 ml) 3 ml PER PROTOCOL IV ; Start 07/18/18 at 18:30 Ondansetron HCl (Zofran Inj) 4 mg Q6H PRN IV NAUSEA AND/OR VOMITING Last administered on 07/23/18 21:38; Admin Dose 4 MG; Start 07/18/18 at 18:30 Ipratropium [place] (Atrovent 0.02% (Neb)) 0.5 mg Q2H RESP THERAPY PRN NEB SHORTNESS OF BREATH Last administered on 08/07/18 18:13; Admin Dose 0.5 MG; Start 07/18/18 at 18:30 Acetaminophen (Tylenol Liquid) 650 mg Q6H PRN GTB PAIN LEVEL 1-3 OR FEVER Last administered on 08/07/18 20:49; Admin Dose 650 MG; Start 07/19/18 at 10:30 Acetaminophen/ Hydrocodone Bitart ([place] (5/325)) 1 tab Q6H PRN GTB PAIN LEVEL 4-6 Last administered on 08/07/18 19:01; Admin Dose 1 TAB; Start 07/19/18 at 12:30 Docusate Sodium (Colace Liquid Cup) 100 mg Q12 PRN GTB CONSTIPATION Last administered on 07/27/18 09:25; Admin Dose 100 MG; Start 07/19/18 at 08:00 Docusate Sodium (Colace Liquid Cup) 100 mg QHS GTB Last administered on 08/07/18 20:42; Admin Dose 100 MG; Start 07/19/18 at 21:00 IV Flush (NS 10 ml) 10 ml PRN PRN IV FLUSH LINE; Start 07/19/18 at 18:30 Levetiracetam (Keppra Liquid) 500 mg Q12 GTB Last administered on 08/08/18 08:26; Admin Dose 500 MG; Start 07/20/18 at 21:00 Mupirocin (Bactroban) 1 applic BID TOP Last administered on 08/08/18 08:36; Admin Dose 1 APPLIC; Start 07/21/18 at 21:00 Sodium Hypochlorite (Dakins Diluted ()) 1 applic BID TP Last administered on 08/08/18 08:36; Admin Dose 1 APPLIC; Start 07/22/18 at 09:00 Collagenase (Santyl) 1 applic BID TOP Last administered on 08/08/18 08:25; Admin Dose 1 APPLIC; Start 07/22/18 at 09:00 Famotidine (Pepcid Iv) 20 mg BID IV Last administered on 08/08/18 08:26; Admin Dose 20 MG; Start 07/23/18 at 21:00 Epoetin [place]-epbx (Retacrit (Non-Esrd)) 10,000 unit MoWeFr@1700 SC Last administered on 08/06/18 18:57; Admin Dose 10,000 UNIT; Start 07/23/18 at 18:30 Metoclopramide HCl (Reglan) 5 mg TID IV Last administered on 08/08/18 14:01; Admin Dose 5 MG; Start 07/24/18 at 09:00 Quetiapine Fumarate (Seroquel) 75 mg BID GTB Last administered on 08/08/18 08:26; Admin Dose 75 MG; Start 07/29/18 at 21:00 Bisacodyl (Dulcolax Supp) 10 mg DAILY PRN [place] CONSTIPATION; Start 07/31/18 at 13:30 Alteplase, Recombinant (Cathflo (Activase)) 2 mg MAY REPEAT X1 PRN CATHETER IF CATHETER REMAINS OCCULUDED Last administered on 08/02/18 15:54; Admin Dose 2 MG; Start 08/02/18 at 14:30 Hydromorphone HCl (Dilaudid) 0.5 mg Q4H PRN IV SEVERE PAIN LEVEL 7-10 Last administered on 08/08/18 11:00; Admin Dose 0.5 MG; Start 08/06/18 at 01:30 Methylnaltrexone [place] (Relistor) 12 mg DAILY PRN [place] constipation; Start 08/06/18 at 09:00 Levalbuterol (Xopenex Neb) 0.63 mg Q2H RESP THERAPY PRN HHN SHORTNESS OF BREATH Last administered on 08/07/18at 18:13; Admin Dose 0.63 MG; Start 08/07/18 at 17:30 REGINALDO CHERY NP Aug 08, 2018 14:09
[2018-08-08] MEDS ORDERED: GENTAMICIN IV PER PHARMACY XX SCH (14:30)
--- NOTE | 2018-08-08 15:52 | PN ---
Date/Time of Note Date/Time of Note DATE: 08/08/18 TIME: 15:50 Assessment/Plan VTE Prophylaxis Risk score (from Ns)>0 risk: 7 SCD applied (from Ns): No SCD contraindicated: patient refusal Pharmacological prophylaxis: NA/contraindicated, LMWH Pharm contraindication: other Lines/Catheters [facility] P[facility] Line Central line still needed: Yes Urinary Cath still in place: Yes Reason Cath still needed: urinary retention Assessment/Plan Hospital Course Patient's continues on ventilatory support, awake alert. Pending arrangement for tertiary facility transfer for a large tracheal stoma closure with flap. Assessment/Plan - Hypernatremia, continue free water with GT, IVF with D5W. Dr. Barker is following in nephrology consultation. - Large tracheal opening, s/p evaluation by Dr Woodruff in ENT consultation with recommendation to transfer to tertiary care center for free flap closure. - Anemia of chronic disease. S/p blood transfusion, continue Epogen. Stool for OB is neg. Dr. Borjas is following in gastroenterology consultation. - Ileus versus small bowel obstruction, resolved. - Sepsis with shock injury to possible healthcare acquired pneumonia and UTI, completed treatment with abx. Dr. Maciel is following in infection disease consultation. - Acute on chronic renal failure. Continue to monitor BUN and creatinine. - Ventilator dependent respiratory failure, continue pulmonary toilet and bronchodilators. Dr Ames is following in pulmonology consultation. - Neurogenic bladder with suprapubic catheter. - Dysphagia with gastrostomy tube. - Multiple decubitus ulcers present on admission. - Cervical spine injury with paraplegia. - Bipolar disorder with psychosis. - Hx of right nephrectomy - Hx of left renal nephrolithiasis, hx of lithotripsy with insertion and subsequent removal of ureteral JJ stent. Further recommendations based on clinical course. Plan of care discussed with Dr. Barreto. Result Diagram: 08/06/18 0552 08/08/18 0555 Results 24hrs Laboratory Tests Test 08/08/18 05:55 Sodium Level 149 H Potassium Level 4.6 Chloride Level 117 H Carbon Dioxide Level 23 Anion Gap 9 Blood Urea Nitrogen 58 H Creatinine 1.73 H Est Glomerular Filtrat Rate mL/min 44 L Glucose Level 92 Calcium Level 8.9 Exam/Review of Systems Exam Vitals Vital Signs Date Temp Pulse Resp B/P (MAP) Pulse Ox O2 O2 Flow FiO2 Time Delivery Rate 08/08/18 120 27 96 40 15:07 08/08/18 98.5 125/97 Mechanical 14:50 (106) Ventilator Trach Collar Intake and Output 08/07/18 08/07/18 08/08/18 1515:00 23:00 07:00 IntakeIntake Total 820 ml 2780 ml 1880 ml OutputOutput Total 900 ml 1000 ml BalanceBalance 820 ml 1880 ml 880 ml Exam Constitutional: alert, awake Neck: supple, other (Tracheostomy) Respiratory: diminished breath sounds Cardiovascular: regular rate and rhythm Gastrointestinal: soft, non-tender, other (G-tube) Genitourinary - Male: other (Suprapubic catheter) Extremities: normal pulses, other (Contracted) Neurological: other (Paraplegia) Skin: other (Multiple wounds) Results Results 24hrs Laboratory Tests Test 08/08/18 05:55 Sodium Level 149 H Potassium Level 4.6 Chloride Level 117 H Carbon Dioxide Level 23 Anion Gap 9 Blood Urea Nitrogen 58 H Creatinine 1.73 H Est Glomerular Filtrat Rate mL/min 44 L Glucose Level 92 Calcium Level 8.9 Medications Medication Current Medications Bisacodyl (Dulcolax Supp) 10 mg DAILY [place] Last administered on 08/06/18 09:01; Admin Dose 10 MG; Start 07/19/18 at 09:00 Multivitamins Therapeutic (Theragran) 1 tab DAILY GTB Last administered on 08/08/18 08:26; Admin Dose 1 TAB; Start 07/19/18 at 09:00 Zinc Sulfate (Zinc Sulfate) 220 mg DAILY GTB Last administered on 08/08/18 08:26; Admin Dose 220 MG; Start 07/19/18 at 09:00 IV Flush (NS 3 ml) 3 ml PER PROTOCOL IV ; Start 07/18/18 at 18:30 Ondansetron HCl (Zofran Inj) 4 mg Q6H PRN IV NAUSEA AND/OR VOMITING Last a dministered on 07/23/18 21:38; Admin Dose 4 MG; Start 07/18/18 at 18:30 Ipratropium [place] (Atrovent 0.02% (Neb)) 0.5 mg Q2H RESP THERAPY PRN NEB SHORTNESS OF BREATH Last administered on 08/07/18 18:13; Admin Dose 0.5 MG; Start 07/18/18 at 18:30 Acetaminophen (Tylenol Liquid) 650 mg Q6H PRN GTB PAIN LEVEL 1-3 OR FEVER Last administered on 08/07/18 20:49; Admin Dose 650 MG; Start 07/19/18 at 10:30 Acetaminophen/ Hydrocodone Bitart ([place] (5/325)) 1 tab Q6H PRN GTB PAIN LEVEL 4-6 Last administered on 08/07/18 19:01; Admin Dose 1 TAB; Start 07/19/18 at 12:30 Docusate Sodium (Colace Liquid Cup) 100 mg Q12 PRN GTB CONSTIPATION Last administered on 07/27/18 09:25; Admin Dose 100 MG; Start 07/19/18 at 08:00 Docusate Sodium (Colace Liquid Cup) 100 mg QHS GTB Last administered on 08/07/18 20:42; Admin Dose 100 MG; Start 07/19/18 at 21:00 IV Flush (NS 10 ml) 10 ml PRN PRN IV FLUSH LINE; Start 07/19/18 at 18:30 Levetiracetam (Keppra Liquid) 500 mg Q12 GTB Last administered on 08/08/18 0 8:26; Admin Dose 500 MG; Start 07/20/18 at 21:00 Mupirocin (Bactroban) 1 applic BID TOP Last administered on 08/08/18 08:36; Admin Dose 1 APPLIC; Start 07/21/18 at 21:00 Sodium Hypochlorite (Dakins Diluted (1/40)) 1 applic BID TP Last administered on 08/08/18 08:36; Admin Dose 1 APPLIC; Start 07/22/18 at 09:00 Collagenase (Santyl) 1 applic BID TOP Last administered on 08/08/18 08:25; Admin Dose 1 APPLIC; Start 07/22/18 at 09:00 Famotidine (Pepcid Iv) 20 mg BID IV Last administered on 08/08/18 08:26; Admin Dose 20 MG; Start 07/23/18 at 21:00 Epoetin [place]-epbx (Retacrit (Non-Esrd)) 10,000 unit MoWeFr@1700 SC Last administered on 08/06/18 18:57; Admin Dose 10,000 UNIT; Start 07/23/18 at 18:30 Metoclopramide HCl (Reglan) 5 mg TID IV Last administered on 08/08/18at 14:01; Admin Dose 5 MG; Start 07/24/18 at 09:00 Quetiapine Fumarate (Seroquel) 75 mg BID GTB Last administered on 08/08/18at 0 8:26; Admin Dose 75 MG; Start 07/29/18 at 21:00 Bisacodyl (Dulcolax Supp) 10 mg DAILY PRN [place] CONSTIPATION; Start 07/31/18 at 13:30 Alteplase, Recombinant (Cathflo (Activase)) 2 mg MAY REPEAT X1 PRN CATHETER IF CATHETER REMAINS OCCULUDED Last administered on 08/02/18at 15:54; Admin Dose 2 MG; Start 08/02/18 at 14:30 Hydromorphone HCl (Dilaudid) 0.5 mg Q4H PRN IV SEVERE PAIN LEVEL 7-10 Last administered on 08/08/18at 15:00; Admin Dose 0.5 MG; Start 08/06/18 at 01:30 Methylnaltrexone [place] (Relistor) 12 mg DAILY PRN [place] constipation; Start 08/06/18 at 09:00 Levalbuterol (Xopenex Neb) 0.63 mg Q2H RESP THERAPY PRN HHN SHORTNESS OF BREATH Last administered on 08/07/18at 18:13; Admin Dose 0.63 MG; Start 08/07/18 at 17:30 Gentamicin Sulfate (Gentamicin Iv Per Pharmacy) GENTAMICIN PER PHARMACY NOTE XX ; Start 08/08/18 at 14:30 Gentamicin Sulfate 100 ml @ 200 mls/hr Q72H IVPB ; Start 08/08/18 at 16:30 AISSATOU DUNCAN Aug 08, 2018 15:52
[2018-08-08] MEDS ORDERED: GENTAMICIN 120 MG/NS (PMX) 100 ML IVPB SCH (16:30)
[2018-08-08] MEDS: EPOETIN ALFA-EPBX (NON-ESRD 10,000 UNIT/ML VIAL SC SCH (17:33)
[2018-08-08] MEDS: LEVALBUTEROL (NEB) 0.63 MG/3 ML AMP HHN PRN (19:38)
[2018-08-08] MEDS: IPRATROPIUM (NEB) 0.5 MG/2.5 ML AMP NEB PRN (19:38)
[2018-08-08] MEDS: HYDROCODONE/APAP (5/325) TAB GTB PRN (20:32)
[2018-08-08] MEDS: DOCUSATE SODIUM 10 MG/ML (10ML CUP) GTB SCH (20:34)
[2018-08-09] VITALS (16 sets, daily range): BP systolic 92–121; BP diastolic 60–89; PULSE 120–134; RESP 20–37
[2018-08-09] MEDS: HYDROmorphONE 0.5 MG/0.5 ML SYG IV PRN ×5 (00:06→18:15)
[2018-08-09] MEDS: IPRATROPIUM (NEB) 0.5 MG/2.5 ML AMP NEB PRN ×2 (03:54→11:49)
[2018-08-09] MEDS: LEVALBUTEROL (NEB) 0.63 MG/3 ML AMP HHN PRN ×2 (03:54→11:49)
[2018-08-09] MEDS: HYDROCODONE/APAP (5/325) TAB GTB PRN ×4 (04:29→21:03)
[2018-08-09] MEDS: QUETIAPINE 25 MG TAB GTB SCH (08:56)
[2018-08-09] MEDS: COLLAGENASE 5 GM (UD JAR) TOP SCH (08:56)
[2018-08-09] MEDS: MULTIVITAMINS THERAPEUTIC TAB GTB SCH (08:56)
[2018-08-09] MEDS: ZINC SULFATE 220 MG CAP GTB SCH (08:56)
[2018-08-09] MEDS: LEVETIRACETAM (100 MG/ML) 5ML CUP GTB SCH (08:56)
[2018-08-09] MEDS: FAMOTIDINE 20 MG INJ IV SCH (08:56)
[2018-08-09] MEDS: METOCLOPRAMIDE 10 MG INJ IV SCH ×2 (08:57→12:18)
[2018-08-09] MEDS: BISACODYL 10 MG SUPP PR SCH (08:58)
[2018-08-09] MEDS: BALSAM PERU/CASTOR OIL 60 GM TUBE TOP SCH (08:58)
[2018-08-09] MEDS: DAKINS 0.0125%(1/40) 473 ML SOLUTION TP SCH (08:58)
[2018-08-09] MEDS: MUPIROCIN 2% 22 GM OINT TOP SCH (08:58)
--- NOTE | 2018-08-09 10:50 | CONS ---
Assessment/Plan Assessment/Plan Assessment/Plan (Daily) 1. Acute kidney injury on CKD IV due to severe prerenal azotemia 2. Septic shock s/p levophed in ICU 3. PNA concerned about HCAP 4. UTI with Urine Cx growing Acinetobacter 5. 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 Ventilator dependant respiratory failure s/p Tracheostomy 7. S/p G tube placement 8. 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 H/o Right nephrectomy with left Nephrolithiasis 10 .H/o Bipolar disorder 12. Severe Anemia possibly due to Combination of Anemia of CKD + acute blood loss anemia s/p PRBC transfusion during this admission Plan: BUN/Cr 60/1.74, s/p PRBC transfusion during this admission, continue Epogen 36023 units SQ MWF s/p IV abx for UTI, now off antibiotic, renally dose all medications and monitor electrolytes, replace as needed We will continue to follow up Consultation Date/Type/Reason Admit Date/Time Jul 18, 2018 at 13:59 Initial Consult Date 07/18/18 Type of Consult NEPHROLOGY Requesting Provider: JOSÉ ANTONIO MIRZA MD Date/Time of Note DATE: 08/09/18 TIME: 10:50 Exam/Review of Systems Exam Vitals Vital Signs Date Temp Pulse Resp B/P (MAP) Pulse Ox O2 O2 Flow FiO2 Time Delivery Rate 08/09/18 40 10:26 08/09/18 99.1 130 21 100/76 100 Mechanical 07:40 (84) Ventilator Trach Collar Intake and Output 08/08/18 08/08/18 08/09/18 1515:00 23:00 07:00 IntakeIntake Total 920 ml 600 ml OutputOutput Total 900 ml 350 ml 1000 ml BalanceBalance -900 ml 570 ml -400 ml Results Result Diagram: 08/06/18 0552 08/09/18 0640 Results 24hrs Laboratory Tests Test 08/09/18 06:40 Sodium Level 150 H Potassium Level 4.5 Chloride Level 118 H Carbon Dioxide Level 22 Anion Gap 10 Blood Urea Nitrogen 60 H Creatinine 1.74 H Est Glomerular Filtrat Rate mL/min 43 L Glucose Level 107 Calcium Level 9.0 Medications Medication Current Medications Bisacodyl (Dulcolax Supp) 10 mg DAILY [place] Last administered on 08/06/18at 09:01; Admin Dose 10 MG; Start 07/19/18 at 09:00 Multivitamins Therapeutic (Theragran) 1 tab DAILY GTB Last administered on 08/09/18 08:56; Admin Dose 1 TAB; Start 07/19/18 at 09:00 Zinc Sulfate (Zinc Sulfate) 220 mg DAILY GTB Last administered on 08/09/18 08:56; Admin Dose 220 MG; Start 07/19/18 at 09:00 IV Flush (NS 3 ml) 3 ml PER PROTOCOL IV ; Start 07/18/18 at 18:30 Ondansetron HCl (Zofran Inj) 4 mg Q6H PRN IV NAUSEA AND/OR VOMITING Last administered on 07/23/18 21:38; Admin Dose 4 MG; Start 07/18/18 at 18:30 Ipratropium [place] (Atrovent 0.02% (Neb)) 0.5 mg Q2H RESP THERAPY PRN NEB SHORTNESS OF BREATH Last administered on 08/09/18 03:54; Admin Dose 0.5 MG; Start 07/18/18 at 18:30 Acetaminophen (Tylenol Liquid) 650 mg Q6H PRN GTB PAIN LEVEL 1-3 OR FEVER Last administered on 08/07/18 20:49; Admin Dose 650 MG; Start 07/19/18 at 10:30 Acetaminophen/ Hydrocodone Bitart ([place] (5/325)) 1 tab Q6H PRN GTB PAIN LEVEL 4-6 Last administered on 08/09/18 04:29; Admin Dose 1 TAB; Start 07/19/18 at 12:30 Docusate Sodium (Colace Liquid Cup) 100 mg Q12 PRN GTB CONSTIPATION Last administered on 07/27/18 09:25; Admin Dose 100 MG; Start 07/19/18 at 08:00 Docusate Sodium (Colace Liquid Cup) 100 mg QHS GTB Last administered on 08/07/18 20:42; Admin Dose 100 MG; Start 07/19/18 at 21:00 IV Flush (NS 10 ml) 10 ml PRN PRN IV FLUSH LINE; Start 07/19/18 at 18:30 Levetiracetam (Keppra Liquid) 500 mg Q12 GTB Last administered on 08/09/18 08:56; Admin Dose 500 MG; Start 07/20/18 at 21:00 Mupirocin (Bactroban) 1 applic BID TOP Last administered on 08/09/18 08:58; Admin Dose 1 APPLIC; Start 07/21/18 at 21:00 Sodium Hypochlorite (Dakins Diluted ()) 1 applic BID TP Last administered on 08/09/18 08:58; Admin Dose 1 APPLIC; Start 07/22/18 at 09:00 Collagenase (Santyl) 1 applic BID TOP Last administered on 08/09/18 08:56; Admin Dose 1 APPLIC; Start 07/22/18 at 09:00 Famotidine (Pepcid Iv) 20 mg BID IV Last administered on 08/09/18 08:56; Admin Dose 20 MG; Start 07/23/18 at 21:00 Epoetin [place]-epbx (Retacrit (Non-Esrd)) 10,000 unit MoWeFr@1700 SC Last administered on 08/08/18 17:33; Admin Dose 10,000 UNIT; Start 07/23/18 at 18:30 Metoclopramide HCl (Reglan) 5 mg TID IV Last administered on 08/09/18 08:57; Admin Dose 5 MG; Start 07/24/18 at 09:00 Quetiapine Fumarate (Seroquel) 75 mg BID GTB Last administered on 08/09/18 08:56; Admin Dose 75 MG; Start 07/29/18 at 21:00 Bisacodyl (Dulcolax Supp) 10 mg DAILY PRN [place] CONSTIPATION; Start 07/31/18 at 13:30 Alteplase, Recombinant (Cathflo (Activase)) 2 mg MAY REPEAT X1 PRN CATHETER IF CATHETER REMAINS OCCULUDED Last administered on 08/02/18 15:54; Admin Dose 2 MG; Start 08/02/18 at 14:30 Hydromorphone HCl (Dilaudid) 0.5 mg Q4H PRN IV SEVERE PAIN LEVEL 7-10 Last administered on 08/09/18 09:53; Admin Dose 0.5 MG; Start 08/06/18 at 01:30 Methylnaltrexone [place] (Relistor) 12 mg DAILY PRN [place] constipation; Start 08/06/18 at 09:00 Levalbuterol (Xopenex Neb) 0.63 mg Q2H RESP THERAPY PRN HHN SHORTNESS OF BREATH Last administered on 08/09/18at 03:54; Admin Dose 0.63 MG; Start 08/07/18 at 17:30 Gentamicin Sulfate (Gentamicin Iv Per Pharmacy) GENTAMICIN PER PHARMACY NOTE XX ; Start 08/08/18 at 14:30 Gentamicin Sulfate 100 ml @ 200 mls/hr Q72H IVPB Last administered on 08/08/18at 17:32; Admin Dose 200 MLS/HR; Start 08/08/18 at 16:30 TIARA CISNEROS MD Aug 09, 2018 10:50
--- NOTE | 2018-08-09 12:23 | PN ---
Date/Time of Note Date/Time of Note DATE: 08/09/18 TIME: 12:15 Assessment/Plan VTE Prophylaxis Risk score (from Nsg)>0 risk: 8 SCD applied (from Nsg): Yes Pharmacological prophylaxis: LMWH Lines/Catheters IV Catheter Type (from Nrsg): PICC Line Central line still needed: Yes Urinary Cath still in place: Yes Reason Cath still needed: urinary retention Assessment/Plan Hospital Course Patient is tachycardic, agitated, continues on ventilatory support. Start Ativan as needed for agitation. Sodium was 150, will start IV fluids with D5W. Pending arrangement for tertiary facility transfer for a large tracheal stoma closure with flap. Assessment/Plan - Hypernatremia, continue free water with GT, IVF with D5W. Dr. Barker is following in nephrology consultation. - Large tracheal opening, s/p evaluation by Dr Woodruff in ENT consultation with recommendation to transfer to tertiary care center for free flap closure. - Anemia of chronic disease. S/p blood transfusion, continue Epogen. Stool for OB is neg. Dr. Borjas is following in gastroenterology consultation. - Ileus versus small bowel obstruction, resolved. - Sepsis with shock injury to possible healthcare acquired pneumonia and UTI, completed treatment with abx. Dr. Maciel is following in infection disease consultation. - Acute on chronic renal failure. Continue to monitor BUN and creatinine. - Ventilator dependent respiratory failure, continue pulmonary toilet and bronchodilators. Dr Ames is following in pulmonology consultation. - Neurogenic bladder with suprapubic catheter. - Dysphagia with gastrostomy tube. - Multiple decubitus ulcers present on admission. - Cervical spine injury with paraplegia. - Bipolar disorder with psychosis. - Hx of right nephrectomy - Hx of left renal nephrolithiasis, hx of lithotripsy with insertion and subsequent removal of ureteral JJ stent. Further recommendations based on clinical course. Plan of care discussed with Dr. Barreto. Result Diagram: 08/06/18 0552 08/09/18 0640 Results 24hrs Laboratory Tests Test 08/09/18 06:40 Sodium Level 150 H Potassium Level 4.5 Chloride Level 118 H Carbon Dioxide Level 22 Anion Gap 10 Blood Urea Nitrogen 60 H Creatinine 1.74 H Est Glomerular Filtrat Rate mL/min 43 L Glucose Level 107 Calcium Level 9.0 Exam/Review of Systems Exam Vitals Vital Signs Date Temp Pulse Resp B/P (MAP) Pulse Ox O2 O2 Flow FiO2 Time Delivery Rate 08/09/18 98.9 131 20 109/89 93 Mechanical 11:44 (96) Ventilator Trach Collar 08/09/18 40 11:09 Intake and Output 08/08/18 08/08/18 08/09/18 1414:59 22:59 06:59 IntakeIntake Total 920 ml 600 ml OutputOutput Total 900 ml 350 ml 1000 ml BalanceBalance -900 ml 570 ml -400 ml Exam Constitutional: alert, awake Neck: supple, other (Tracheostomy) Respiratory: diminished breath sounds Cardiovascular: regular rate and rhythm Gastrointestinal: soft, non-tender, other (G-tube) Genitourinary - Male: other (Suprapubic catheter) Extremities: normal pulses, other (Contracted) Neurological: other (Paraplegia) Skin: other (Multiple wounds) Results Results 24hrs Laboratory Tests Test 08/09/18 06:40 Sodium Level 150 H Potassium Level 4.5 Chloride Level 118 H Carbon Dioxide Level 22 Anion Gap 10 Blood Urea Nitrogen 60 H Creatinine 1.74 H Est Glomerular Filtrat Rate mL/min 43 L Glucose Level 107 Calcium Level 9.0 Medications Medication Current Medications Bisacodyl (Dulcolax Supp) 10 mg DAILY MS Last administered on 08/06/18 09:01; Admin Dose 10 MG; Start 07/19/18 at 09:00 Multivitamins Therapeutic (Theragran) 1 tab DAILY GTB Last administered on 08/09/18 08:56; Admin Dose 1 TAB; Start 07/19/18 at 09:00 Zinc Sulfate (Zinc Sulfate) 220 mg DAILY GTB Last administered on 08/09/18 08:56; Admin Dose 220 MG; Start 07/19/18 at 09:00 IV Flush (NS 3 ml) 3 ml PER PROTOCOL IV ; Start 07/18/18 at 18:30 Ondansetron HCl (Zofran Inj) 4 mg Q6H PRN IV NAUSEA AND/OR VOMITING Last administered on 07/23/18at 21:38; Admin Dose 4 MG; Start 07/18/18 at 18:30 Ipratropium [place] (Atrovent 0.02% (Neb)) 0.5 mg Q2H RESP THERAPY PRN NEB SHORTNESS OF BREATH Last administered on 08/09/18at 11:49; Admin Dose 0.5 MG; Start 07/18/18 at 18:30 Acetaminophen (Tylenol Liquid) 650 mg Q6H PRN GTB PAIN LEVEL 1-3 OR FEVER Last administered on 08/07/18 20:49; Admin Dose 650 MG; Start 07/19/18 at 10:30 Acetaminophen/ Hydrocodone Bitart ([place] (5/325)) 1 tab Q6H PRN GTB PAIN LEVEL 4-6 Last administered on 08/09/18 04:29; Admin Dose 1 TAB; Start 07/19/18 at 12:30 Docusate Sodium (Colace Liquid Cup) 100 mg Q12 PRN GTB CONSTIPATION Last administered on 07/27/18 09:25; Admin Dose 100 MG; Start 07/19/18 at 08:00 Docusate Sodium (Colace Liquid Cup) 100 mg QHS GTB Last administered on 08/07/18 20:42; Admin Dose 100 MG; Start 07/19/18 at 21:00 IV Flush (NS 10 ml) 10 ml PRN PRN IV FLUSH LINE; Start 07/19/18 at 18:30 Levetiracetam (Keppra Liquid) 500 mg Q12 GTB Last administered on 08/09/18 08:56; Admin Dose 500 MG; Start 07/20/18 at 21:00 Mupirocin (Bactroban) 1 applic BID TOP Last administered on 08/09/18 08:58; Admin Dose 1 APPLIC; Start 07/21/18 at 21:00 Sodium Hypochlorite (Dakins Diluted (1/40)) 1 applic BID TP Last administered on 08/09/18 08:58; Admin Dose 1 APPLIC; Start 07/22/18 at 09:00 Collagenase (Santyl) 1 applic BID TOP Last administered on 08/09/18 08:56; Admin Dose 1 APPLIC; Start 07/22/18 at 09:00 Famotidine (Pepcid Iv) 20 mg BID IV Last administered on 08/09/18 08:56; Admin Dose 20 MG; Start 07/23/18 at 21:00 Epoetin [place]-epbx (Retacrit (Non-Esrd)) 10,000 unit MoWeFr@1700 SC Last admini stered on 08/08/18 17:33; Admin Dose 10,000 UNIT; Start 07/23/18 at 18:30 Metoclopramide HCl (Reglan) 5 mg TID IV Last administered on 08/09/18 08:57; Admin Dose 5 MG; Start 07/24/18 at 09:00 Quetiapine Fumarate (Seroquel) 75 mg BID GTB Last administered on 08/09/18 08:56; Admin Dose 75 MG; Start 07/29/18 at 21:00 Bisacodyl (Dulcolax Supp) 10 mg DAILY PRN MS CONSTIPATION; Start 07/31/18 at 13:30 Alteplase, Recombinant (Cathflo (Activase)) 2 mg MAY REPEAT X1 PRN CATHETER IF CATHETER REMAINS OCCULUDED Last administered on 08/02/18 15:54; Admin Dose 2 MG; Start 08/02/18 at 14:30 Hydromorphone HCl (Dilaudid) 0.5 mg Q4H PRN IV SEVERE PAIN LEVEL 7-10 Last administered on 08/09/18 09:53; Admin Dose 0.5 MG; Start 08/06/18 at 01:30 Methylnaltrexone [place] (Relistor) 12 mg DAILY PRN SC constipation; Start 08/06/18 at 09:00 Levalbuterol (Xopenex Neb) 0.63 mg Q2H RESP THERAPY PRN HHN SHORTNESS OF BREATH Last administered on 08/09/18 11:49; Admin Dose 0.63 MG; Start 08/07/18 at 17:30 Gentamicin Sulfate (Gentamicin Iv Per Pharmacy) GENTAMICIN PER PHARMACY NOTE XX ; Start 08/08/18 at 14:30 Gentamicin Sulfate 100 ml @ 200 mls/hr Q72H IVPB Last administered on 08/08/18 17:32; Admin Dose 200 MLS/HR; Start 08/08/18 at 16:30 AISSATOU DUNCAN Aug 09, 2018 12:23
[2018-08-09] MEDS ORDERED: DEXTROSE 5% 1,000 ML IV SCH (12:30)
[2018-08-09] MEDS ORDERED: LORAZEPAM 2 MG INJ IV PRN (12:30)
--- NOTE | 2018-08-09 14:47 | CONS ---
Assessment/Plan Assessment/Plan Assessment/Plan (Daily) 42 year old paraplegic male presents from SNF for sepsis secondary to pnuemonia and UTI was found to ileus vs SBO on KUB with one episode of coffee ground vomit. Trach collar 40% FiO2 with 95% O2 saturation. Tachycardic in low 100s to low 120s. Last bm 08/04. No acute changes. Pending tertiary care placement for trach leak 1. Ileus vs SBO -resolved 2. Anemia, acute on chronic -neg FOB 3. Acute on chronic renal failure -h/o rt nephrectomy -improving 4. Sepsis secondary to pnuemonia and UTI 5. Pneumonia 6. UTI -Acinetobacter Baumannii 7. 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 Vent dependent respiratory failure 9. Dysphagia, s/p g tube 10. Bipolar disorder 11. Constipation -resolved with relistor injection Plan Continue Pepcid and reglan Continue tube feeds DC amitiza (PO only ), continue relistor injection qd prn constipation Tertiary care for trach stoma closure Also discontinued Dulcolax suppository Consultation Date/Type/Reason Admit Date/Time Jul 18, 2018 at 13:59 Initial Consult Date 07/18/18 Requesting Provider: JOSÉ ANTONIO MIRZA MD Date/Time of Note DATE: 08/09/18 TIME: 14:46 24 HR Interval Summary Free Text/Dictation Patient is constipated Exam/Review of Systems Exam Vitals Vital Signs Date Temp Pulse Resp B/P (MAP) Pulse Ox O2 O2 Flow FiO2 Time Delivery Rate 08/09/18 98.9 131 20 109/89 93 Mechanical 11:44 (96) Ventilator Trach Collar 08/09/18 40 11:09 Intake and Output 08/08/18 08/08/18 08/09/18 1515:00 23:00 07:00 IntakeIntake Total 920 ml 600 ml OutputOutput Total 900 ml 350 ml 1000 ml BalanceBalance -900 ml 570 ml -400 ml Constitutional: alert ENMT: intubated Neck: supple, non-tender Respiratory: normal air movement Gastrointestinal: soft, nl liver, spleen, non-tender Results Result Diagram: 08/06/18 0552 08/09/18 0640 Results 24hrs Laboratory Tests Test 08/09/18 06:40 Sodium Level 150 H Potassium Level 4.5 Chloride Level 118 H Carbon Dioxide Level 22 Anion Gap 10 Blood Urea Nitrogen 60 H Creatinine 1.74 H Est Glomerular Filtrat Rate mL/min 43 L Glucose Level 107 Calcium Level 9.0 Medications Medication Current Medications Bisacodyl (Dulcolax Supp) 10 mg DAILY AL Last administered on 08/06/18 09:01; Admin Dose 10 MG; Start 07/19/18 at 09:00 Multivitamins Therapeutic (Theragran) 1 tab DAILY GTB Last administered on 08:56; Admin Dose 1 TAB; Start 07/19/18 at 09:00 Zinc Sulfate (Zinc Sulfate) 220 mg DAILY GTB Last administered on 08/09/18 08:56; Admin Dose 220 MG; Start 07/19/18 at 09:00 IV Flush (NS 3 ml) 3 ml PER PROTOCOL IV ; Start 07/18/18 at 18:30 Ondansetron HCl (Zofran Inj) 4 mg Q6H PRN IV NAUSEA AND/OR VOMITING Last administered on 07/23/18 21:38; Admin Dose 4 MG; Start 07/18/18 at 18:30 Ipratropium [place] (Atrovent 0.02% (Neb)) 0.5 mg Q2H RESP THERAPY PRN NEB SHORTNESS OF BREATH Last administered on 08/09/18 11:49; Admin Dose 0.5 MG; Start 07/18/18 at 18:30 Acetaminophen (Tylenol Liquid) 650 mg Q6H PRN GTB PAIN LEVEL 1-3 OR FEVER Last administered on 08/07/18 20:49; Admin Dose 650 MG; Start 07/19/18 at 10:30 Acetaminophen/ Hydrocodone Bitart ([place] (5/325)) 1 tab Q6H PRN GTB PAIN LEVEL 4-6 Last administered on 08/09/18 12:21; Admin Dose 1 TAB; Start 07/19/18 at 12:30 Docusate Sodium (Colace Liquid Cup) 100 mg Q12 PRN GTB CONSTIPATION Last administered on 07/27/18 09:25; Admin Dose 100 MG; Start 07/19/18 at 08:00 Docusate Sodium (Colace Liquid Cup) 100 mg QHS GTB Last administered on 08/07/18 20:42; Admin Dose 100 MG; Start 07/19/18 at 21:00 IV Flush (NS 10 ml) 10 ml PRN PRN IV FLUSH LINE; Start 07/19/18 at 18:30 Levetiracetam (Keppra Liquid) 500 mg Q12 GTB Last administered on 08/09/18 08:56; Admin Dose 500 MG; Start 07/20/18 at 21:00 Mupirocin (Bactroban) 1 applic BID TOP Last administered on 08/09/18 08:58; Admin Dose 1 APPLIC; Start 07/21/18 at 21:00 Sodium Hypochlorite (Dakins Diluted ()) 1 applic BID TP Last administered on 08/09/18 08:58; Admin Dose 1 APPLIC; Start 07/22/18 at 09:00 Collagenase (Santyl) 1 applic BID TOP Last administered on 08/09/18 08:56; Admin Dose 1 APPLIC; Start 07/22/18 at 09:00 Famotidine (Pepcid Iv) 20 mg BID IV Last administered on 08/09/18 08:56; Admin Dose 20 MG; Start 07/23/18 at 21:00 Epoetin [place]-epbx (Retacrit (Non-Esrd)) 10,000 unit MoWeFr@1700 SC Last administered on 08/08/18 17:33; Admin Dose 10,000 UNIT; Start 07/23/18 at 18:30 Metoclopramide HCl (Reglan) 5 mg TID IV Last administered on 08/09/18 12:18; Admin Dose 5 MG; Start 07/24/18 at 09:00 Quetiapine Fumarate (Seroquel) 75 mg BID GTB Last administered on 08/09/18 08:56; Admin Dose 75 MG; Start 07/29/18 at 21:00 Bisacodyl (Dulcolax Supp) 10 mg DAILY PRN AL CONSTIPATION; Start 07/31/18 at 13:30 Alteplase, Recombinant (Cathflo (Activase)) 2 mg MAY REPEAT X1 PRN CATHETER IF CATHETER REMAINS OCCULUDED Last administered on 08/02/18 15:54; Admin Dose 2 MG; Start 08/02/18 at 14:30 Hydromorphone HCl (Dilaudid) 0.5 mg Q4H PRN IV SEVERE PAIN LEVEL 7-10 Last administered on 08/09/18 13:56; Admin Dose 0.5 MG; Start 08/06/18 at 01:30 Methylnaltrexone [place] (Relistor) 12 mg DAILY PRN SC constipation; Start 08/06/18 at 09:00 Levalbuterol (Xopenex Neb) 0.63 mg Q2H RESP THERAPY PRN HHN SHORTNESS OF BREATH Last administered on 08/09/18 11:49; Admin Dose 0.63 MG; Start 08/07/18 at 17:30 Gentamicin Sulfate (Gentamicin Iv Per Pharmacy) GENTAMICIN PER PHARMACY NOTE XX ; Start 08/08/18 at 14:30 Gentamicin Sulfate 100 ml @ 200 mls/hr Q72H IVPB Last administered on 08/08/18 17:32; Admin Dose 200 MLS/HR; Start 08/08/18 at 16:30 Lorazepam (Ativan) 0.5 mg Q8H PRN IV AGITATION Last administered on 08/09/18 12:32; Admin Dose 0.5 MG; Start 08/09/18 at 12:30 Dextrose 1,000 ml @ 80 mls/hr [id number] IV Last administered on 08/09/18 12:32; Admin Dose 70 MLS/HR; Start 08/09/18 at 12:30; Stop 08/10/18 at 01:02 OPAL STRATTON MD Aug 09, 2018 14:47
--- NOTE | 2018-08-09 15:06 | CONS ---
Assessment/Plan Assessment/Plan Hospital Course (Demo Recall) ID PROGRESS NOTE CURRENT ABX: DAY # =>GENT IV s/p Flagyl 24H INTERVAL SUMMARY * Awake, alert, responsive, NAD, Tmax today 99.1 -- low grade TMax past 72+H ~100.6 => recurrent UTI * - chronically ill appearing M w/(+)Trach * Indwelling: Trach, PEG, PICC line, suprapubic catheter MICRO: * 08/07/18 BCx (-) * 08/07/18 SUPRAPUBIC SPECIMIN: URINE CULTURE Preliminary Organism 1 GRAM NEGATIVE ANGÉLICA COLONY COUNT >100,000 CFU/ml * (+)MRSA NARES, * 07/18/18 (+) UTI URINE CULTURE Final Organism 1 ACINETOBACTER BAUMANNII COLONY COUNT >100,000 CFU/ml * Acinetobacter susceptible to gentamicin tobramycin and Bactrim, blood cultures negative DIAGNOSTIC IMAGING * 08/08/18 CXR: IMPRESSION:1. Mild atelectasis at the lung bases.2. Tracheostomy tube and right arm PICC line.3. Atherosclerosis. 4. Otherwise unremarkable chest radiograph. * 07/27/18 CXR: There is aright-sided central line in place with its tip overlying the mid superior vena cava.. There is a endotracheal to in the midl ine. There are increased interstitial markings. There is bilateral pleural effusion as well as bilateral lung base consolidations. * CT abdomen pelvis revealed bibasilar atelectasis and small effusions. Small ascites. Left hydroureter due to multiple small 2 mm stones in the course of the ureter cannot rule out pyelonephritis. Gastrostomy tube in the distended stomach. PHYSICAL EXAMINATION: GENERAL: VSS, NAD HEENT: AT, NC, NECK: Supple, (+)Trach present CHEST: Rise symmetrical without dyspnea on observation HEART: Pulse RRR ABDOMEN: Benign EXTREMITIES: Warm, dry, wasted contractured SKIN: No rash, no diaphoresis == SEE PHOTOS MULTIPLE DECUBS ID ASSESSMENT 42 yo M admit with: 1. SIRS --> s/p sepsis, s/p shock 2. Recurrent UTI/acute pyelonephritis * 3. Acute on chronic respiratory failure ?PNA 4. Acute on chronic kidney disease 5. Incomplete quadriplegia 6. Anemia and thrombocytopenia 7. History of left nephrectomy 8. Multiple chronic decubitus ulcers 9. Diarrhea, rule out C. difficile (+)MRSA Nares ->Bactroban ABX ALLERGIES: TETRACYCLINES INVASIVES: PIV CURRENT ABX: DAY # =>GENT IV s/p Flagyl ID RECOMMENDATIONS/PLAN: 1. Continue current ABX -- AWAITING FINAL GNR MICRO RESULTS 2. Continue supportive care . Consultation Date/Type/Reason Admit Date/Time Jul 18, 2018 at 13:59 Initial Consult Date 07/18/18 Requesting Provider: JOSÉA NTONIO MIRZA MD Date/Time of Note DATE: 08/09/18 TIME: 15:00 Exam/Review of Systems Exam Vitals Vital Signs Date Temp Pulse Resp B/P (MAP) Pulse Ox O2 O2 Flow FiO2 Time Delivery Rate 08/09/18 98.9 131 20 109/89 93 Mechanical 11:44 (96) Ventilator Trach Collar 08/09/18 40 11:09 Intake and Output 08/08/18 08/08/18 08/09/18 1515:00 23:00 07:00 IntakeIntake Total 920 ml 600 ml OutputOutput Total 900 ml 350 ml 1000 ml BalanceBalance -900 ml 570 ml -400 ml Results Result Diagram: 08/06/18 0552 08/09/18 0640 Results 24hrs Laboratory Tests Test 08/09/18 06:40 Sodium Level 150 H Potassium Level 4.5 Chloride Level 118 H Carbon Dioxide Level 22 Anion Gap 10 Blood Urea Nitrogen 60 H Creatinine 1.74 H Est Glomerular Filtrat Rate mL/min 43 L Glucose Level 107 Calcium Level 9.0 Medications Medication Current Medications Bisacodyl (Dulcolax Supp) 10 mg DAILY IN Last administered on 08/06/18at 09:01; Admin Dose 10 MG; Start 07/19/18 at 09:00 Multivitamins Therapeutic (Theragran) 1 tab DAILY GTB Last administered on 08/09/18at 08:56; Admin Dose 1 TAB; Start 07/19/18 at 09:00 Zinc Sulfate (Zinc Sulfate) 220 mg DAILY GTB Last administered on 08/09/18at 08:56; Admin Dose 220 MG; Start 07/19/18 at 09:00 IV Flush (NS 3 ml) 3 ml PER PROTOCOL IV ; Start 07/18/18 at 18:30 Ondansetron HCl (Zofran Inj) 4 mg Q6H PRN IV NAUSEA AND/OR VOMITING Last administered on 07/23/18 21:38; Admin Dose 4 MG; Start 07/18/18 at 18:30 Ipratropium [place] (Atrovent 0.02% (Neb)) 0.5 mg Q2H RESP THERAPY PRN NEB SHORTNESS OF BREATH Last administered on 08/09/18 11:49; Admin Dose 0.5 MG; Start 07/18/18 at 18:30 Acetaminophen (Tylenol Liquid) 650 mg Q6H PRN GTB PAIN LEVEL 1-3 OR FEVER Last administered on 08/07/18 20:49; Admin Dose 650 MG; Start 07/19/18 at 10:30 Acetaminophen/ Hydrocodone Bitart ([place] (5/325)) 1 tab Q6H PRN GTB PAIN LEVEL 4-6 Last administered on 08/09/18 12:21; Admin Dose 1 TAB; Start 07/19/18 at 12:30 Docusate Sodium (Colace Liquid Cup) 100 mg Q12 PRN GTB CONSTIPATION Last administered on 07/27/18 09:25; Admin Dose 100 MG; Start 07/19/18 at 08:00 Docusate Sodium (Colace Liquid Cup) 100 mg QHS GTB Last administered on 08/07/18 20:42; Admin Dose 100 MG; Start 07/19/18 at 21:00 IV Flush (NS 10 ml) 10 ml PRN PRN IV FLUSH LINE; Start 07/19/18 at 18:30 Levetiracetam (Keppra Liquid) 500 mg Q12 GTB Last administered on 08/09/18 08:56; Admin Dose 500 MG; Start 07/20/18 at 21:00 Mupirocin (Bactroban) 1 applic BID TOP Last administered on 08/09/18 08:58; Admin Dose 1 APPLIC; Start 07/21/18 at 21:00 Sodium Hypochlorite (Dakins Diluted (40)) 1 applic BID TP Last administered on 08/09/18 08:58; Admin Dose 1 APPLIC; Start 07/22/18 at 09:00 Collagenase (Santyl) 1 applic BID TOP Last administered on 08/09/18 08:56; Admin Dose 1 APPLIC; Start 07/22/18 at 09:00 Famotidine (Pepcid Iv) 20 mg BID IV Last administered on 08/09/18 08:56; Admin Dose 20 MG; Start 07/23/18 at 21:00 Epoetin [place]-epbx (Retacrit (Non-Esrd)) 10,000 unit MoWeFr@1700 SC Last administered on 08/08/18 17:33; Admin Dose 10,000 UNIT; Start 07/23/18 at 18:30 Metoclopramide HCl (Reglan) 5 mg TID IV Last administered on 08/09/18 12:18; Admin Dose 5 MG; Start 07/24/18 at 09:00 Quetiapine Fumarate (Seroquel) 75 mg BID GTB Last administered on 08/09/18 08:56; Admin Dose 75 MG; Start 07/29/18 at 21:00 Bisacodyl (Dulcolax Supp) 10 mg DAILY PRN IN CONSTIPATION; Start 07/31/18 at 13:30 Alteplase, Recombinant (Cathflo (Activase)) 2 mg MAY REPEAT X1 PRN CATHETER IF CATHETER REMAINS OCCULUDED Last administered on 08/02/18 15:54; Admin Dose 2 MG; Start 08/02/18 at 14:30 Hydromorphone HCl (Dilaudid) 0.5 mg Q4H PRN IV SEVERE PAIN LEVEL 7-10 Last administered on 08/09/18 13:56; Admin Dose 0.5 MG; Start 08/06/18 at 01:30 Methylnaltrexone [place] (Relistor) 12 mg DAILY PRN SC constipation; Start 08/06/18 at 09:00 Levalbuterol (Xopenex Neb) 0.63 mg Q2H RESP THERAPY PRN HHN SHORTNESS OF BREATH Last administered on 08/09/18 11:49; Admin Dose 0.63 MG; Start 08/07/18 at 17:30 Gentamicin Sulfate (Gentamicin Iv Per Pharmacy) GENTAMICIN PER PHARMACY NOTE XX ; Start 08/08/18 at 14:30 Gentamicin Sulfate 100 ml @ 200 mls/hr Q72H IVPB Last administered on 08/08/18 17:32; Admin Dose 200 MLS/HR; Start 08/08/18 at 16:30 Lorazepam (Ativan) 0.5 mg Q8H PRN IV AGITATION Last administered on 08/09/18 12:32; Admin Dose 0.5 MG; Start 08/09/18 at 12:30 Dextrose 1,000 ml @ 80 mls/hr [id number] IV Last administered on 08/09/18at 12:32; Admin Dose 70 MLS/HR; Start 08/09/18 at 12:30; Stop 08/10/18 at 01:02 Methylnaltrexone [place] (Relistor) 12 mg Q48H SC ; Start 08/09/18 at 16:00 KELSI CERDA NP Aug 09, 2018 15:06
[2018-08-09] MEDS ORDERED: METHYLNALTREXONE 12 MG/0.6 ML VIAL SC SCH (16:00)
== END 2018-08-09 21:20 | disposition short-term general hospital (02) | DRG 870 ==
LOC: E/R 12:02 → ICU 13:59 → CANRESERV 14:29 → ICU 07-21 09:26 → TEL 07-25 16:11
PROVIDERS: ADMIT Internal Medicine; ATTEND Internal Medicine
PROC: 02HV33Z Insertion of Infusion Device into Superior Vena Cava, Percutaneous Approach (ICD-10-PCS; principal; 2018-07-18)
PROC: 5A1955Z Respiratory Ventilation, Greater than 96 Consecutive Hours (ICD-10-PCS; 2018-07-18)
PROC: 30233N1 Transfusion of Nonautologous Red Blood Cells into Peripheral Vein, Percutaneous Approach (ICD-10-PCS; 2018-07-24)
DX: A41.9 Sepsis, unspecified organism (principal); R65.21 Severe sepsis with septic shock; J18.9 Pneumonia, unspecified organism; J96.20 Acute and chronic respiratory failure, unspecified whether with hypoxia or hypercapnia; Z99.11 Dependence on respirator [ventilator] status; G82.20 Paraplegia, unspecified; N17.9 Acute kidney failure, unspecified; N10 Acute pyelonephritis; K56.7 Ileus, unspecified; E87.0 Hyperosmolality and hypernatremia; J95.03 Malfunction of tracheostomy stoma; N18.4 Chronic kidney disease, stage 4 (severe); E86.0 Dehydration; N31.9 Neuromuscular dysfunction of bladder, unspecified; R13.10 Dysphagia, unspecified; F31.9 Bipolar disorder, unspecified; D69.6 Thrombocytopenia, unspecified; E87.6 Hypokalemia; R19.7 Diarrhea, unspecified; D63.1 Anemia in chronic kidney disease; L89.90 Pressure ulcer of unspecified site, unspecified stage; B96.89 Other specified bacterial agents as the cause of diseases classified elsewhere; Z93.1 Gastrostomy status; Z22.322 Carrier or suspected carrier of Methicillin resistant Staphylococcus aureus; Z93.50 Unspecified cystostomy status; Z90.5 Acquired absence of kidney
CPT/HCPCS: 36415; 36430; 36569; 36600; 71045; 74018; 74176; 80048; 80053; 80170; 81001; 82270; 82607; 82728; 82746; 82803; 83540; 83605; 83735; 84484; 85025; 85045; 85610; 85730; 86850; 86870; 86880; 86900; 86901; 86920; 87081; 87086; 92526; 92610; 93005; 94002; 94003; 94640; 94664; 96365; 96375; J0692; J1170; J1450; J1580; J1644; J2060; J2185; J2405; J2765; J2997; J3370; J3480; J7030; J7040; J7070; P9016; P9047; Q5106

== ENCOUNTER 2018-08-14 18:20 | Inpatient (IN) | payer MEDICARE ==
[~2018-08-14] VITALS: Ht 165.1 cm; Wt 59.5 kg
[~2018-08-14 18:20] MED LIST changes: +ACET-2047 GTB; -ACET325T33 GTB; -AMIN30LI GTB; -ARGI1POW23 GTB; -ASC500 GTB; +ATEN-51 GTB; -BACL10TA GTB; +CITR473S GTB; +ENOX30DI10 SQ; -EPO10ESRD SC; +EPOE40009 IJ; +FAMO-96 GTB; +HYDR2TAB36 PO; -HYDR4TAB51 GTB; +MIDO5TAB GTB; -MUCO4 NEB
[2018-08-15] VITALS (16 sets, daily range): BP systolic 91–106; BP diastolic 55–76; PULSE 87–113; RESP 20–29; Ht 165.1 cm; Wt 59.5 kg
[2018-08-15] MEDS ORDERED: ONDANSETRON 4 MG INJ IV PRN (03:30)
[2018-08-15] MEDS ORDERED: DIPHENHYDRAMINE 25 MG CAP PO PRN (03:30)
[2018-08-15] MEDS ORDERED: VANCOMYCIN IV PER PHARMACY XX SCH (03:30)
[2018-08-15] MEDS ORDERED: ACETAMINOPHEN 650MG/20.3ML CUP GTB PRN (03:30)
[2018-08-15] MEDS: HYDROmorphONE 0.5 MG/0.5 ML SYG IV PRN ×5 (04:54→20:27)
[2018-08-15] MEDS ORDERED: VANCOMYCIN HCL 1.25 GM in SOD CHLORIDE 0.9% 250 ML IVPB ONE (05:00)
[2018-08-15] MEDS ORDERED: ALBUTEROL/IPRATROPIUM (NEB) 3 ML AMP HHN SCH (05:00)
[2018-08-15] MEDS: IPRATROPIUM (HFA) 12.9 GM INHALER INH SCH ×3 (07:55→19:37)
[2018-08-15] MEDS: ALBUTEROL HFA 8 GM INHALER INH SCH ×3 (07:55→19:37)
--- NOTE | 2018-08-15 08:38 | PN ---
DATE: 08/15/2018 SUBJECTIVE: The patient was transferred back from [facility] as the patient refused to have any tracheal stoma closure with flap. The patient absolutely refused and no procedure could be done to r educe the opening. He is back here on the fifth floor. His vital signs are stable. He is awake and alert and his cooperation is poor for any examination. PHYSICAL EXAMINATION: VITAL SIGNS: Show temperature 98.7, blood pressure is 91/55, pulse rate 113, respirations 27, pulse oximetry 93% saturation at the time of his transfer. Subsequently, his pulse ox saturation has impro jefry to 97%. He is on 40% oxygen. GENERAL: The patient is awake, responsive, but refuses to cooperate. Tracheostomy stoma large and the cuff is seen, but the examination is difficult as the patient keeps moving his neck. HEART: Regular rhythm with intermittent sinus tachycardia. CHEST: Breath sounds are heard bilaterally but diminished in the lower lung tierney. ABDOMEN: Soft, tolerating tube feedings. No distention seen. Normal bowel sounds. EXTREMITIES: Show paraplegia, no edema. LABORATORY DATA: No lab tests are available. IMPRESSION: 1. Chronic ventilator dependent respiratory failure. 2. Resolving sepsis. 3. Resolving pneumonia. 4. Chronic kidney disease. 5. Chronic anemia. 6. History of nephrolithiasis. 7. Status post left nephrectomy. 8. Paraplegia secondary to previous spinal cord injury. 9. History of bipolar disorder. PLAN: 1. Continue long-term ventilator support. 2. Complete the antibiotics. 3. Bronchodilator inhalation therapy to clear the secretions and maintain the pulmonary hygiene. 4. Continue tube feedings. 5. In view of patient's refusal to have any procedure difficult to perform any procedure on this lar ge tracheostomy stoma. 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 He was more amenable and become more cooperative; however, this may t sarthak some time, probably several days. Meanwhile, discharge planning initiated procedures or interven tions are contemplated. Dictated By: HUMBERTO PEREZ MD SR/NTS Conf#: [id number] DID#: [id number]
[2018-08-15] MEDS: MEROPENEM 1 GM/50ML(PMX) 50 ML IVPB SCH ×2 (08:49→21:09)
[2018-08-15] MEDS: GABAPENTIN (50 MG/ML PO SYG) GTB SCH ×2 (08:49→20:29)
[2018-08-15] MEDS: LEVETIRACETAM (100 MG/ML) 5ML CUP GTB SCH ×2 (08:49→20:28)
[2018-08-15] MEDS: POLYETHYLENE GLYCOL 17 GM PACKET GTB SCH (08:50)
[2018-08-15] MEDS: ZINC SULFATE 220 MG CAP GTB SCH (08:50)
[2018-08-15] MEDS: QUETIAPINE 25 MG TAB GTB SCH ×2 (08:50→20:28)
[2018-08-15] MEDS: ASCORBIC ACID 250 MG TAB GTB SCH (08:50)
[2018-08-15] MEDS: MULTIVITAMINS/MINERALS TAB GTB SCH (08:50)
[2018-08-15] MEDS: COLLAGENASE 5 GM (UD JAR) TOP SCH ×2 (08:51→20:28)
[2018-08-15] MEDS ORDERED: FAMOTIDINE 20 MG INJ IV SCH (09:00)
[2018-08-15] MEDS: ENOXAPARIN 40 MG/0.4 ML SYG SC SCH (09:09)
[2018-08-15] MEDS: SOD FERRIC GLUC COMPLX 125 MG in SOD CHLORIDE 0.9% 100 ML IVPB SCH (12:31)
--- NOTE | 2018-08-15 17:56 | HP ---
Date/Time of Note Date/Time of Note DATE: 08/15/18 TIME: 17:55 Assessment/Plan VTE Prophylaxis Risk score (from Nsg)>0 risk: 1 SCD applied (from Ns): No SCD contraindicated: patient refusal Pharmacological prophylaxis: LMWH Lines/Catheters IV Catheter Type (from Nrsg): PICC Line Central line still needed: Yes Urinary Cath still in place: Yes (Suprapubic) Reason Cath still needed: urinary retention Assessment/Plan Assessment/Plan - Resolving sepsis secondary to pneumonia, continue antibiotics per ID recommendations. - Large tracheal opening, s/p evaluation by Dr Woodruff in ENT consultation with recommendation for free flap closure. Patient was evaluated at [facility] refused to have surgery, not cooperative with care. - Ventilator dependent respiratory failure, continue pulmonary toilet and bronchodilators. Dr Ames is following in pulmonology consultation. - Acute on chronic renal failure. Continue to monitor BUN and creatinine. - Anemia of chronic disease. Continue Epogen. - Neurogenic bladder with suprapubic catheter. - Dysphagia with gastrostomy tube. - Seizures, continue Keppra - Multiple decubitus ulcers present on admission. - Cervical spine injury with paraplegia. - Bipolar disorder with psychosis. - Hx of right nephrectomy - Hx of left renal nephrolithiasis, hx of lithotripsy with insertion and subsequent removal of ureteral JJ stent. Further recommendations based on clinical course. Plan of care discussed with Dr. Barreto. Result Diagram: 08/15/18 0831 Results 24hrs Laboratory Tests Test 08/15/18 08:31 Blood Urea Nitrogen 55 H Creatinine 1.63 H HPI/ROS Admit Date/Time Admit Date/Time Aug 15, 2018 at 02:30 Hx of Present Illness The patient is a 43-year-old male known to me from previous admissions. Patient had paraplegia secondary to cervical spine injury that he sustained more than 20 years ago, ventilator dependent respiratory failure with tracheostomy, neurogenic bladder with suprapubic catheter, chronic kidney disease, status post right nephrectomy, left renal nephrolithiasis, and bipolar disorder. Patient was recently treated at [facility] for sepsis secondary to pneumonia and urinary tract infection. Patient was noted to have large tracheostomy opening and was evaluated by ENT with recommendation to transfer to tertiary care facility for possible tracheostomy stoma closure with flap. Patient was transferred to [facility] for possible large tracheostomy stoma closure surgery last week. Patient is transferred back from [facility] since patient refused to have any tracheal stoma closure with flap and was not corporative. ROS Unable to obtain due to patient's condition PMH/Family/Social Past Medical History per HPI Medications Current Medications Acetaminophen/ Hydrocodone Bitart ([place] (5/325)) 1 tab Q4H PRN GTB PAIN LEVEL 7-10; Start 08/15/18 at 03:30 Diphenhydramine HCl (Benadryl) 25 mg HS PRN PO INSOMNIA; Start 08/15/18 at 03:30 Ondansetron HCl (Zofran Inj) 4 mg Q4H PRN IV NAUSEA AND/OR VOMITING; Start 08/15/18 at 03:30 Levetiracetam (Keppra Liquid) 500 mg BID GTB Last administered on 08/15/18at 08:49; Admin Dose 500 MG; Start 08/15/18 at 09:00 Collagenase (Santyl) 1 applic DAILY TOP Last administered on 08/15/18 08:51; Admin Dose 1 APPLIC; Start 08/15/18 at 09:00 Quetiapine Fumarate (Seroquel) 75 mg BID GTB Last administered on 08/15/18 08:50; Admin Dose 75 MG; Start 08/15/18 at 09:00 Polyethylene Glycol (Miralax) 17 gm DAILY GTB Last administered on 08/15/18 08:50; Admin Dose 17 GM; Start 08/15/18 at 09:00 Enoxaparin Sodium (Lovenox) 40 mg DAILY SC Last administered on 08/15/18at 09:09; Admin Dose 40 MG; Start 08/15/18 at 09:00 Meropenem/Sodium Chloride 50 ml @ 100 mls/hr Q12 IVPB Last administered on 08/15/18 08:49; Admin Dose 100 MLS/HR; Start 08/15/18 at 09:00 Multivitamins/ Minerals (Theragran-M) 1 tab DAILY GTB Last administered on 08/15/18 08:50; Admin Dose 1 TAB; Start 08/15/18 at 09:00 Ascorbic Acid (Vitamin C) 250 mg DAILY GTB Last administered on 08/15/18 08:50; Admin Dose 250 MG; Start 08/15/18 at 09:00 Zinc Sulfate (Zinc Sulfate) 220 mg DAILY GTB Last administered on 08/15/18 08:50; Admin Dose 220 MG; Start 08/15/18 at 09:00 Gabapentin (Neurontin Liquid) 300 mg BID GTB Last administered on 08/15/18at 08:49; Admin Dose 300 MG; Start 08/15/18 at 09:00 Ferric Sodium Gluconate Complex 125 mg/Sodium Chloride 110 ml @ 110 mls/hr DAILY@1300 IVPB Last administered on 08/15/18at 12:31; Admin Dose 110 MLS/HR; Start 08/15/18 at 13:00; Stop 08/20/18 at 13:59 Acetaminophen (Tylenol Liquid) 650 mg Q6 PRN GTB MILD PAIN(1-3)OR ELEVATED TEMP; Start 08/15/18 at 03:30 Vancomycin HCl (Vanco Iv Per Pharmacy) VANCOMYCIN PER PHARMACY PER PROTOCOL XX ; Start 08/15/18 at 03:30 Hydromorphone HCl (Dilaudid) 0.5 mg Q3H PRN IV SEVERE PAIN LEVEL 7-10 Last administered on 08/15/18at 16:18; Admin Dose 0.5 MG; Start 08/15/18 at 03:30 Albuterol (Ventolin Hfa) 4 puff Q6H RESP THERAPY INH Last administered on 08/15/18 13:28; Admin Dose 4 PUFF; Start 08/15/18 at 08:00 Ipratropium [place] (Atrovent Hfa) 4 puff Q6H RESP THERAPY INH Last administered on 08/15/18 13:28; Admin Dose 4 PUFF; Start 08/15/18 at 08:00 Vancomycin HCl 250 ml @ 125 mls/hr Q48H IVPB ; Start 08/17/18 at 06:00 Sodium Hypochlorite (Dakins Diluted (1/40)) 1 applic BID TP ; Start 08/15/18 at 21:00 Collagenase (Santyl) 1 applic BID TOP ; Start 08/15/18 at 21:00 Famotidine (Pepcid) 20 mg DAILY GTB ; Start 08/16/18 at 09:00 Coded Allergies: Tetracyclines (Verified Allergy, Unknown, 07/18/18) Past Surgical History Past Surgical Hx: other (Status post right nephrectomy, status post tracheos jin, status post G-tube placement, status post left lithotripsy) Family History Significant Family History: no pertinent family hx Social History Alcohol Use: none Smoking Status: Never smoker Drug Use: none Exam/Review of Systems Vital Signs Vitals Vital Signs Date Temp Pulse Resp B/P (MAP) Pulse Ox O2 O2 Flow FiO2 Time Delivery Rate 08/15/18 100 26 94 40 17:05 08/15/18 99.1 101/71 15:02 (81) Intake and Output 08/14/18 08/14/18 08/15/18 1515:00 23:00 07:00 IntakeIntake Total 960 ml BalanceBalance 960 ml Exam Constitutional: alert, oriented Head: normocephalic Neck: supple, other (Tracheostomy) Respiratory: diminished breath sounds, other (Scattered rhonchi) Cardiovascular: regular rate and rhythm Gastrointestinal: soft, non-tender, other (G-tube) Genitourinary - Male: other (Suprapubic catheter) Musculoskeletal: other (Contracted ) Extremities: normal pulses Neurological: confused Skin: other (Multiple wounds) AISSATOU DUNCAN Aug 15, 2018 17:56
[2018-08-15] MEDS: BALSAM PERU/CASTOR OIL 60 GM TUBE TOP SCH (20:30)
[2018-08-15] MEDS: DAKINS 0.0125%(1/40) 473 ML SOLUTION TP SCH (20:30)
[2018-08-16] VITALS (15 sets, daily range): BP systolic 94–114; BP diastolic 67–86; PULSE 78–94; RESP 18–27
[2018-08-16] MEDS: ALBUTEROL HFA 8 GM INHALER INH SCH ×4 (01:21→19:27)
[2018-08-16] MEDS: IPRATROPIUM (HFA) 12.9 GM INHALER INH SCH ×4 (01:21→19:27)
[2018-08-16] MEDS: HYDROmorphONE 0.5 MG/0.5 ML SYG IV PRN ×6 (02:05→21:25)
[2018-08-16] MEDS: POLYETHYLENE GLYCOL 17 GM PACKET GTB SCH (10:09)
[2018-08-16] MEDS: LEVETIRACETAM (100 MG/ML) 5ML CUP GTB SCH ×2 (10:09→21:13)
[2018-08-16] MEDS: COLLAGENASE 5 GM (UD JAR) TOP SCH ×3 (10:10→21:13)
[2018-08-16] MEDS: ZINC SULFATE 220 MG CAP GTB SCH (10:10)
[2018-08-16] MEDS: MULTIVITAMINS/MINERALS TAB GTB SCH (10:11)
[2018-08-16] MEDS: FAMOTIDINE 20 MG TAB GTB SCH (10:11)
[2018-08-16] MEDS: QUETIAPINE 25 MG TAB GTB SCH ×2 (10:11→21:14)
[2018-08-16] MEDS: MEROPENEM 1 GM/50ML(PMX) 50 ML IVPB SCH ×2 (10:12→21:26)
[2018-08-16] MEDS: ASCORBIC ACID 250 MG TAB GTB SCH (10:12)
[2018-08-16] MEDS: GABAPENTIN (50 MG/ML PO SYG) GTB SCH ×2 (10:12→21:14)
[2018-08-16] MEDS: DAKINS 0.0125%(1/40) 473 ML SOLUTION TP SCH ×2 (10:19→21:15)
[2018-08-16] MEDS: BALSAM PERU/CASTOR OIL 60 GM TUBE TOP SCH ×2 (10:19→21:15)
[2018-08-16] MEDS: ENOXAPARIN 40 MG/0.4 ML SYG SC SCH (10:34)
[2018-08-16] MEDS: SOD FERRIC GLUC COMPLX 125 MG in SOD CHLORIDE 0.9% 100 ML IVPB SCH (13:17)
--- NOTE | 2018-08-16 13:34 | CONS ---
Assessment/Plan Assessment/Plan Assessment/Plan (Daily) 1. Acute kidney Injury on CKD III/IV due to prerenal azotemia + ATN from sepsis 2. Status post sepsis 3. 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 ventilator dependent respiratory failure with tracheostomy, dysphagia with G-tube, chronic kidney disease III and history of right nephrectomy and left re nal nephrolithiasis, bipolar disorder Plan: IV abx meropenem and vancomycin for sepsis, ID following IV iron for severe iron deficiney Expecting Cr to improve with IV abx , renally dose all abx, monitor electrolytes and replace as needed Thanks for consultation I will continue to follow up Consultation Date/Type/Reason Admit Date/Time Aug 15, 2018 at 02:30 Date of Consultation: Aug 16, 2018 Type of Consult NEPHROLOGY Reason for Consultation Hyperkalemia, acute on chronic renal failure Requesting Provider: JOSÉ ANTONIO MIRZA MD Date/Time of Note DATE: 08/16/18 TIME: 13:34 Hx of Present Illness 42-year-old male with history of paraplegia secondary to cervical spine injury, ventilator dependent respiratory failure with tracheostomy, dysphagia with G- tube, chronic kidney disease and history of right nephrectomy and left renal nephrolithiasis, bipolar disorder was sent from longterm facility for elevated above baseline BUN and creatinine. Patient has fever and hypotension which is does not improved with IV fluid boluses. Patient was diagnosed with sepsis and started on broad-spectrum antibiotics. Patient was started on Levophed drip for blood pressure control and admitted for further evaluation and management to intensive care unit. On admission BUN/Cr 55/1.63, K 5.5- Renal has been consulted for acute renal failure on CKD ,III, acute hyperkalemia. Subjective hx not possible: pt non-verbal, other (due to clinical condition ) Past Medical History Medical History: other (as per HPI ) Home Meds Reported Medications Tramadol Hcl* (Ultram*) 50 Mg Tablet, 50 MG GTB BID PRN for BREAKTHROUGH PAIN, TAB 07/18/18 Acetaminophen* (Acetaminophen*) 500 MG Extra Strength Tablet, 1000 MG GTB Q4 PRN for PAIN LEVEL 4-6, TAB 07/18/18 Acetaminophen* (Acetaminophen*) 650 Mg Tablet, 650 MG GTB Q4 PRN for PAIN LEVEL 1-3, #30 TAB AND FEVER 07/18/18 Glycopyrrolate* (Glycopyrrolate*) 1 Mg Tablet, 1 MG GTB TID, TAB 07/18/18 Epoetin [place] (Procrit) 4,000 Unit/1 Ml Vial, 4000 UNIT IJ MON, WED,SAT,, VIAL HOLD IF HGB ABOVE 10 07/18/18 Famotidine* (Pepcid*) 20 Mg Tablet, 20 MG GTB DAILY, #30 TAB 07/18/18 Multivitamins* (Theragran*) 1 Tab Tab, 1 TAB GTB DAILY, TAB 07/18/18 Midodrine* (Midodrine*) 5 Mg Tablet, 5 MG GTB BID, TAB FOR SBP BELOW 90 07/18/18 Enoxaparin Sodium* (Lovenox*) 30 Mg/0.3 Ml Disp.syrin, 30 MG SQ DAILY, SYR 07/18/18 Hydromorphone Hcl* (Dilaudid*) 2 Mg Tablet, 2 MG PO Q4H PRN for PAIN 7-9, TAB 07/18/18 Citric Acid/Sodium Citrate (Sod Citrate-Citric Acid Soln) 473 Ml Solution, 30 ML GTB TID 07/18/18 Atenolol* (Atenolol*) 25 Mg Tablet, 12.5 MG GTB BID, #60 TAB 07/18/18 Zinc Sulfate* (Zinc Sulfate*) 220 Mg Tablet, 220 MG GTB DAILY, TAB 05/14/18 Cran/Vitc/Mannose/Inulin/Brom (Uti-Stat Liquid) 3,875 Mg/30 Ml Liquid, 30 ML GTB DAILY 05/14/18 Quetiapine Fumarate* (Seroquel*) 50 Mg Tablet, 50 MG GTB BID, TAB 05/14/18 Magnesium Hydroxide* (Milk Of Magnesia*) 400 Mg/5 Ml Oral.susp, 30 ML GTB NEEDED, ML END DATE 07/09/18 05/14/18 Levetiracetam* (Keppra* (Ped)) 100 Mg/Ml Liq, 5 ML GTB Q12H for 30 Days, BOTTLE 05/14/18 Na Phos,M-B/Na Phos,Di-Ba (Fleet Enema Extra) 230 Ml Enema, 1 APPLIC RC NEEDED, ENEMA END DATE 07/09/18 05/14/18 Bisacodyl* (Bisacodyl*) 10 Mg Supp, 10 MG OR NEEDED, SUPP END DATE 07/09/18 05/14/18 Cranberry Extract (Cranberry) 425 Mg Capsule, 425 MG GTB DAILY, CAP 05/14/18 Docusate Sodium* (Colace*) 100 Mg Capsule, 100 MG GTB QHS, #30 CAP 05/14/18 Chlorhexidine Gluconate (Peridex) 473 Ml Mouthwash, 15 ML MM Q12H, BOTTLE 05/14/18 Albuterol Sulfate* (Albuterol Sulfate* Neb) 0.083%-3 Ml Neb, 2.5 MG NEB Q6H PRN for WHEEZING AND SOB, #30 VIAL AND Q3H NEEDED 05/14/18 Medications Current Medications Acetaminophen/ Hydrocodone Bitart ([place] (5/325)) 1 tab Q4H PRN GTB PAIN LEVEL 7-10; Start 08/15/18 at 03:30 Diphenhydramine HCl (Benadryl) 25 mg HS PRN PO INSOMNIA; Start 08/15/18 at 03:30 Ondansetron HCl (Zofran Inj) 4 mg Q4H PRN IV NAUSEA AND/OR VOMITING; Start 08/06 at 03:30 Levetiracetam (Keppra Liquid) 500 mg BID GTB Last administered on 08/16/18 10:09; Admin Dose 500 MG; Start 08/15/18 at 09:00 Collagenase (Santyl) 1 applic DAILY TOP Last administered on 08/16/18 10:10; Admin Dose 1 APPLIC; Start 08/15/18 at 09:00 Quetiapine Fumarate (Seroquel) 75 mg BID GTB Last administered on 08/16/18 10:11; Admin Dose 75 MG; Start 08/15/18 at 09:00 Polyethylene Glycol (Miralax) 17 gm DAILY GTB Last administered on 08/16/18 10:09; Admin Dose 17 GM; Start 08/15/18 at 09:00 Enoxaparin Sodium (Lovenox) 40 mg DAILY SC Last administered on 08/16/18 10:34; Admin Dose 40 MG; Start 08/15/18 at 09:00 Meropenem/Sodium Chloride 50 ml @ 100 mls/hr Q12 IVPB Last administered on 08/16/18 10:12; Admin Dose 100 MLS/HR; Start 08/15/18 at 09:00 Multivitamins/ Minerals (Theragran-M) 1 tab DAILY GTB Last administered on 08/16/18 10:11; Admin Dose 1 TAB; Start 08/15/18 at 09:00 Ascorbic Acid (Vitamin C) 250 mg DAILY GTB Last administered on 08/16/18 10:12; Admin Dose 250 MG; Start 08/15/18 at 09:00 Zinc Sulfate (Zinc Sulfate) 220 mg DAILY GTB Last administered on 08/16/18 10:10; Admin Dose 220 MG; Start 08/15/18 at 09:00 Gabapentin (Neurontin Liquid) 300 mg BID GTB Last administered on 08/16/18 10:12; Admin Dose 300 MG; Start 08/15/18 at 09:00 Ferric Sodium Gluconate Complex 125 mg/Sodium Chloride 110 ml @ 110 mls/hr DAILY@1300 IVPB Last administered on 08/15/18 12:31; Admin Dose 110 MLS/HR; Start 08/15/18 at 13:00; Stop 08/20/18 at 13:59 Acetaminophen (Tylenol Liquid) 650 mg Q6 PRN GTB MILD PAIN(1-3)OR ELEVATED TEMP; Start 08/15/18 at 03:30 Vancomycin HCl (Vanco Iv Per Pharmacy) VANCOMYCIN PER PHARMACY PER PROTOCOL XX ; Start 08/15/18 at 03:30 Hydromorphone HCl (Dilaudid) 0.5 mg Q3H PRN IV SEVERE PAIN LEVEL 7-10 Last administered on 08/16/18 09:24; Admin Dose 0.5 MG; Start 08/15/18 at 03:30 Albuterol (Ventolin Hfa) 4 puff Q6H RESP THERAPY INH Last administered on 08/16/18 08:00; Admin Dose 4 PUFF; Start 08/15/18 at 08:00 Ipratropium [place] (Atrovent Hfa) 4 puff Q6H RESP THERAPY INH Last administered on 08/16/18 08:00; Admin Dose 4 PUFF; Start 08/15/18 at 08:00 Vancomycin HCl 250 ml @ 125 mls/hr Q48H IVPB ; Start 08/17/18 at 06:00 Sodium Hypochlorite (Dakins Diluted (40)) 1 applic BID TP Last administered on 08/16/18at 10:19; Admin Dose 1 APPLIC; Start 08/15/18 at 21:00 Collagenase (Santyl) 1 applic BID TOP Last administered on 08/16/18at 10:10; Admin Dose 1 APPLIC; Start 08/15/18 at 21:00 Famotidine (Pepcid) 20 mg DAILY GTB Last administered on 08/16/18at 10:11; Admin Dose 20 MG; Start 08/16/18 at 09:00 Allergies: Coded Allergies: Tetracyclines (Verified Allergy, Unknown, 07/18/18) Past Surgical History Past Surgical Hx: other (Status post right nephrectomy, status post tracheostomy, status post G-tube placement, status post left lithotripsy) Social History Alcohol Use: none Smoking Status: Never smoker Drug Use: none Exam/Review of Systems Exam Vitals Vital Signs Date Temp Pulse Resp B/P (MAP) Pulse Ox O2 O2 Flow FiO2 Time Delivery Rate 08/16/18 97.5 89 19 97/76 (83) 96 12:13 08/16/18 40 11:05 Intake and Output 08/15/18 08/15/18 08/16/18 1515:00 23:00 07:00 IntakeIntake Total 240 ml OutputOutput Total 1650 ml 1300 ml BalanceBalance -1410 ml -1300 ml Exam Constitutional: alert, oriented Head: normocephalic Neck: supple, other (Tracheostomy) Respiratory: diminished breath sounds, other (Scattered rhonchi) Cardiovascular: regular rate and rhythm Gastrointestinal: soft, non-tender, other (G-tube) Genitourinary - Male: other (Suprapubic catheter) Musculoskeletal: other (Contracted ) Extremities: normal pulses Neurological: confused Skin: other (Multiple wounds) Results Result Diagram: 08/16/18 0746 08/16/18 0746 Results 24hrs Laboratory Tests Test 08/16/18 07:46 White Blood Count 2.7 #L Red Blood Count 2.93 L Hemoglobin 8.1 L Hematocrit 27.3 L Mean Corpuscular Volume 93.2 Mean Corpuscular Hemoglobin 27.6 L Mean Corpuscular Hemoglobin Concent 29.7 L Red Cell Distribution Width 17.5 H Platelet Count 126 L Mean Platelet Volume 13.2 H Immature Granulocytes % 0.700 H Neutrophils % Segmented Neutrophils % (Manual) 33 L Band Neutrophils % (Manual) 21 H Lymphocytes % Lymphocytes % (Manual) 15 Monocytes % Monocytes % (Manual) 10 Eosinophils % Eosinophils % (Manual) 21 H Basophils % Nucleated Red Blood Cells % 0.0 Immature Granulocytes # 0.020 Neutrophils # Neutrophils # (Manual) 0.9 L Band Neutrophils # 0.5 Lymphocytes (Manual) 0.4 L Lymphocytes # Monocytes # Monocytes # (Manual) 0.2 L Eosinophils # Basophils # Nucleated Red Blood Cells # Platelet Estimate DECREASED Giant Platelets 6 H Polychromasia 2+ Poikilocytosis 1+ Anisocytosis 1+ Microcytosis 1+ Ovalocytes 1+ Sodium Level 140 Potassium Level 5.5 H Chloride Level 111 H Carbon Dioxide Level 23 Anion Gap 6 Blood Urea Nitrogen 59 H Creatinine 1.49 H Est Glomerular Filtrat Rate mL/min 52 L Glucose Level 95 Calcium Level 8.3 L Medications Medication Current Medications Acetaminophen/ Hydrocodone Bitart ([place] (5/325)) 1 tab Q4H PRN GTB PAIN LEVEL 7-10; Start 08/15/18 at 03:30 Diphenhydramine HCl (Benadryl) 25 mg HS PRN PO INSOMNIA; Start 08/15/18 at 03:30 Ondansetron HCl (Zofran Inj) 4 mg Q4H PRN IV NAUSEA AND/OR VOMITING; Start 08/15/18 at 03:30 Levetiracetam (Keppra Liquid) 500 mg BID GTB Last administered on 08/16/18 10:09; Admin Dose 500 MG; Start 08/15/18 at 09:00 Collagenase (Santyl) 1 applic DAILY TOP Last administered on 08/16/18 10:10; Admin Dose 1 APPLIC; Start 08/15/18 at 09:00 Quetiapine Fumarate (Seroquel) 75 mg BID GTB Last administered on 08/16/18 10:11; Admin Dose 75 MG; Start 08/15/18 at 09:00 Polyethylene Glycol (Miralax) 17 gm DAILY GTB Last administered on 08/16/18 10:09; Admin Dose 17 GM; Start 08/15/18 at 09:00 Enoxaparin Sodium (Lovenox) 40 mg DAILY SC Last administered on 08/16/18 10:34; Admin Dose 40 MG; Start 08/15/18 at 09:00 Meropenem/Sodium Chloride 50 ml @ 100 mls/hr Q12 IVPB Last administered on 08/16/18 10:12; Admin Dose 100 MLS/HR; Start 08/15/18 at 09:00 Multivitamins/ Minerals (Theragran-M) 1 tab DAILY GTB Last administered on 08/16/18 10:11; Admin Dose 1 TAB; Start 08/15/18 at 09:00 Ascorbic Acid (Vitamin C) 250 mg DAILY GTB Last administered on 08/16/18 10:12; Admin Dose 250 MG; Start 08/15/18 at 09:00 Zinc Sulfate (Zinc Sulfate) 220 mg DAILY GTB Last administered on 08/16/18 10:10; Admin Dose 220 MG; Start 08/15/18 at 09:00 Gabapentin (Neurontin Liquid) 300 mg BID GTB Last administered on 08/16/18 10:12; Admin Dose 300 MG; Start 08/15/18 at 09:00 Ferric Sodium Gluconate Complex 125 mg/Sodium Chloride 110 ml @ 110 mls/hr ARIEL Y@1300 IVPB Last administered on 08/15/18 12:31; Admin Dose 110 MLS/HR; Start 08/15/18 at 13:00; Stop 08/20/18 at 13:59 Acetaminophen (Tylenol Liquid) 650 mg Q6 PRN GTB MILD PAIN(1-3)OR ELEVATED TE MP; Start 08/15/18 at 03:30 Vancomycin HCl (Vanco Iv Per Pharmacy) VANCOMYCIN PER PHARMACY PER PROTOCOL XX ; Start 08/15/18 at 03:30 Hydromorphone HCl (Dilaudid) 0.5 mg Q3H PRN IV SEVERE PAIN LEVEL 7-10 Last administered on 08/16/18 09:24; Admin Dose 0.5 MG; Start 08/15/18 at 03:30 Albuterol (Ventolin Hfa) 4 puff Q6H RESP THERAPY INH Last administered on 08/16/18 08:00; Admin Dose 4 PUFF; Start 08/15/18 at 08:00 Ipratropium [place] (Atrovent Hfa) 4 puff Q6H RESP THERAPY INH Last administe red on 08/16/18 08:00; Admin Dose 4 PUFF; Start 08/15/18 at 08:00 Vancomycin HCl 250 ml @ 125 mls/hr Q48H IVPB ; Start 08/17/18 at 06:00 Sodium Hypochlorite (Dakins Diluted ()) 1 applic BID TP Last administered on 08/16/18at 10:19; Admin Dose 1 APPLIC; Start 08/15/18 at 21:00 Collagenase (Santyl) 1 applic BID TOP Last administered on 08/16/18at 10:10; Admin Dose 1 APPLIC; Start 08/15/18 at 21:00 Famotidine (Pepcid) 20 mg DAILY GTB Last administered on 08/16/18at 10:11; Admin Dose 20 MG; Start 08/16/18 at 09:00 TIARA CISNEROS MD Aug 16, 2018 13:34
--- NOTE | 2018-08-16 14:16 | PN ---
Date/Time of Note Date/Time of Note DATE: 08/16/18 TIME: 14:14 Assessment/Plan VTE Prophylaxis Risk score (from Nsg)>0 risk: 5 SCD applied (from Ns): No SCD contraindicated: patient refusal Pharmacological prophylaxis: LMWH Lines/Catheters IV Catheter Type (from Nrsg): PICC Line Central line still needed: Yes Urinary Cath still in place: No (Suprapubic catheter) Assessment/Plan Hospital Course Patient is awake alert, on vent without distress, potassium 5.5 we will give Kayexalate, BMP tomorrow. Assessment/Plan - Resolving sepsis secondary to pneumonia, continue antibiotics per ID recommendations. - Large tracheal opening, s/p evaluation by Dr Woodruff in ENT consultation with recommendation for free flap closure. Patient was evaluated at [facility] [place] [facility] [place] refused to have surgery, not cooperative with care. - Ventilator dependent respiratory failure, continue pulmonary toilet and bronchodilators. Dr Ames is following in pulmonology consultation. - Acute on chronic renal failure. Continue to monitor BUN and creatinine. - Anemia of chronic disease. Continue Epogen. - Neurogenic bladder with suprapubic catheter. - Dysphagia with gastrostomy tube. - Seizures, continue Keppra - Multiple decubitus ulcers present on admission. - Cervical spine injury with paraplegia. - Bipolar disorder with psychosis. - Hx of right nephrectomy - Hx of left renal nephrolithiasis, hx of lithotripsy with insertion and subsequent removal of ureteral JJ stent. Further recommendations based on clinical course. Plan of care discussed with Dr. Barreto. Result Diagram: 08/16/18 0746 08/16/18 0746 Results 24hrs Laboratory Tests Test 08/16/18 07:46 White Blood Count 2.7 #L Red Blood Count 2.93 L Hemoglobin 8.1 L Hematocrit 27.3 L Mean Corpuscular Volume 93.2 Mean Corpuscular Hemoglobin 27.6 L Mean Corpuscular Hemoglobin Concent 29.7 L Red Cell Distribution Width 17.5 H Platelet Count 126 L Mean Platelet Volume 13.2 H Immature Granulocytes % 0.700 H Neutrophils % Segmented Neutrophils % (Manual) 33 L Band Neutrophils % (Manual) 21 H Lymphocytes % Lymphocytes % (Manual) 15 Monocytes % Monocytes % (Manual) 10 Eosinophils % Eosinophils % (Manual) 21 H Basophils % Nucleated Red Blood Cells % 0.0 Immature Granulocytes # 0.020 Neutrophils # Neutrophils # (Manual) 0.9 L Band Neutrophils # 0.5 Lymphocytes (Manual) 0.4 L Lymphocytes # Monocytes # Monocytes # (Manual) 0.2 L Eosinophils # Basophils # Nucleated Red Blood Cells # Platelet Estimate DECREASED Giant Platelets 6 H Polychromasia 2+ Poikilocytosis 1+ Anisocytosis 1+ Microcytosis 1+ Ovalocytes 1+ Sodium Level 140 Potassium Level 5.5 H Chloride Level 111 H Carbon Dioxide Level 23 Anion Gap 6 Blood Urea Nitrogen 59 H Creatinine 1.49 H Est Glomerular Filtrat Rate mL/min 52 L Glucose Level 95 Calcium Level 8.3 L Exam/Review of Systems Exam Vitals Vital Signs Date Temp Pulse Resp B/P (MAP) Pulse Ox O2 O2 Flow FiO2 Time Delivery Rate 08/16/18 97.5 89 19 97/76 (83) 96 12:13 08/16/18 40 11:05 Intake and Output 08/15/18 08/15/18 08/16/18 1414:59 22:59 06:59 IntakeIntake Total 240 ml OutputOutput Total 1650 ml 1300 ml BalanceBalance -1410 ml -1300 ml Exam Constitutional: alert, oriented Head: normocephalic Neck: supple, other (Tracheostomy) Respiratory: diminished breath sounds, other (Scattered rhonchi) Cardiovascular: regular rate and rhythm Gastrointestinal: soft, non-tender, other (G-tube) Genitourinary - Male: other (Suprapubic catheter) Musculoskeletal: other (Contracted ) Extremities: normal pulses Neurological: confused Skin: other (Multiple wounds) Results Results 24hrs Laboratory Tests Test 08/16/18 07:46 White Blood Count 2.7 #L Red Blood Count 2.93 L Hemoglobin 8.1 L Hematocrit 27.3 L Mean Corpuscular Volume 93.2 Mean Corpuscular Hemoglobin 27.6 L Mean Corpuscular Hemoglobin Concent 29.7 L Red Cell Distribution Width 17.5 H Platelet Count 126 L Mean Platelet Volume 13.2 H Immature Granulocytes % 0.700 H Neutrophils % Segmented Neutrophils % (Manual) 33 L Band Neutrophils % (Manual) 21 H Lymphocytes % Lymphocytes % (Manual) 15 Monocytes % Monocytes % (Manual) 10 Eosinophils % Eosinophils % (Manual) 21 H Basophils % Nucleated Red Blood Cells % 0.0 Immature Granulocytes # 0.020 Neutrophils # Neutrophils # (Manual) 0.9 L Band Neutrophils # 0.5 Lymphocytes (Manual) 0.4 L Lymphocytes # Monocytes # Monocytes # (Manual) 0.2 L Eosinophils # Basophils # Nucleated Red Blood Cells # Platelet Estimate DECREASED Giant Platelets 6 H Polychromasia 2+ Poikilocytosis 1+ Anisocytosis 1+ Microcytosis 1+ Ovalocytes 1+ Sodium Level 140 Potassium Level 5.5 H Chloride Level 111 H Carbon Dioxide Level 23 Anion Gap 6 Blood Urea Nitrogen 59 H Creatinine 1.49 H Est Glomerular Filtrat Rate mL/min 52 L Glucose Level 95 Calcium Level 8.3 L Medications Medication Current Medications Acetaminophen/ Hydrocodone Bitart ([place] (5/325)) 1 tab Q4H PRN GTB PAIN LEVEL 7-10; Start 08/15/18 at 03:30 Diphenhydramine HCl (Benadryl) 25 mg HS PRN PO INSOMNIA; Start 08/15/18 at 03:30 Ondansetron HCl (Zofran Inj) 4 mg Q4H PRN IV NAUSEA AND/OR VOMITING; Start 08/15/18 at 03:30 Levetiracetam (Keppra Liquid) 500 mg BID GTB Last administered on 08/16/18 10:09; Admin Dose 500 MG; Start 08/15/18 at 09:00 Collagenase (Santyl) 1 applic DAILY TOP Last administered on 08/16/18 10:10; Admin Dose 1 APPLIC; Start 08/15/18 at 09:00 Quetiapine Fumarate (Seroquel) 75 mg BID GTB Last administered on 08/16/18 10:11; Admin Dose 75 MG; Start 08/15/18 at 09:00 Polyethylene Glycol (Miralax) 17 gm DAILY GTB Last administered on 08/16/18 10:09; Admin Dose 17 GM; Start 08/15/18 at 09:00 Enoxaparin Sodium (Lovenox) 40 mg DAILY SC Last administered on 08/16/18 10:34; Admin Dose 40 MG; Start 08/15/18 at 09:00 Meropenem/Sodium Chloride 50 ml @ 100 mls/hr Q12 IVPB Last administered on 08/16/18 10:12; Admin Dose 100 MLS/HR; Start 08/15/18 at 09:00 Multivitamins/ Minerals (Theragran-M) 1 tab DAILY GTB Last administered on 08/16/18 10:11; Admin Dose 1 TAB; Start 08/15/18 at 09:00 Ascorbic Acid (Vitamin C) 250 mg DAILY GTB Last administered on 08/16/18 10:12; Admin Dose 250 MG; Start 08/15/18 at 09:00 Zinc Sulfate (Zinc Sulfate) 220 mg DAILY GTB Last administered on 08/16/18 10:10; Admin Dose 220 MG; Start 08/15/18 at 09:00 Gabapentin (Neurontin Liquid) 300 mg BID GTB Last administered on 08/16/18 10:12; Admin Dose 300 MG; Start 08/15/18 at 09:00 Ferric Sodium Gluconate Complex 125 mg/Sodium Chloride 110 ml @ 110 mls/hr DAILY@1300 IVPB Last administered on 08/16/18 13:17; Admin Dose 110 MLS/HR; Start 08/15/18 at 13:00; Stop 08/20/18 at 13:59 Acetaminophen (Tylenol Liquid) 650 mg Q6 PRN GTB MILD PAIN(1-3)OR ELEVATED TEM P; Start 08/15/18 at 03:30 Vancomycin HCl (Vanco Iv Per Pharmacy) VANCOMYCIN PER PHARMACY PER PROTOCOL XX ; Start 08/15/18 at 03:30 Hydromorphone HCl (Dilaudid) 0.5 mg Q3H PRN IV SEVERE PAIN LEVEL 7-10 Last administered on 08/16/18at 09:24; Admin Dose 0.5 MG; Start 08/15/18 at 03:30 Albuterol (Ventolin Hfa) 4 puff Q6H RESP THERAPY INH Last administered on 08/16/18at 08:00; Admin Dose 4 PUFF; Start 08/15/18 at 08:00 Ipratropium [place] (Atrovent Hfa) 4 puff Q6H RESP THERAPY INH Last administer ed on 08/16/18 08:00; Admin Dose 4 PUFF; Start 08/15/18 at 08:00 Vancomycin HCl 250 ml @ 125 mls/hr Q48H IVPB ; Start 08/17/18 at 06:00 Sodium Hypochlorite (Dakins Diluted (1/40)) 1 applic BID TP Last administered on 08/16/18 10:19; Admin Dose 1 APPLIC; Start 08/15/18 at 21:00 Collagenase (Santyl) 1 applic BID TOP Last administered on 08/16/18at 10:10; Admin Dose 1 APPLIC; Start 08/15/18 at 21:00 Famotidine (Pepcid) 20 mg DAILY GTB Last administered on 08/16/18at 10:11; Admin Dose 20 MG; Start 08/16/18 at 09:00 AISSATOU DUNCAN Aug 16, 2018 14:16
[2018-08-16] MEDS ORDERED: SODIUM POLYSTYRENE 15 GM KIT (POWDER + SORBITOL) GTB ONE (18:00)
[2018-08-16] MEDS ORDERED: NA POLYST SULFON 15 GM/60 ML BTL GTB SCH (18:00)
[2018-08-17] VITALS (15 sets, daily range): BP systolic 90–126; BP diastolic 59–87; PULSE 88–108; RESP 18–28
[2018-08-17] MEDS: HYDROmorphONE 0.5 MG/0.5 ML SYG IV PRN ×6 (00:30→20:35)
[2018-08-17] MEDS: IPRATROPIUM (HFA) 12.9 GM INHALER INH SCH ×4 (01:36→20:00)
[2018-08-17] MEDS: ALBUTEROL HFA 8 GM INHALER INH SCH ×4 (01:37→20:00)
[2018-08-17] MEDS ORDERED: VANCOMYCIN 1 GM 250 ML IVPB SCH (06:00)
[2018-08-17] MEDS: GABAPENTIN (50 MG/ML PO SYG) GTB SCH ×2 (10:01→20:34)
[2018-08-17] MEDS: MULTIVITAMINS/MINERALS TAB GTB SCH (10:02)
[2018-08-17] MEDS: ZINC SULFATE 220 MG CAP GTB SCH (10:02)
[2018-08-17] MEDS: QUETIAPINE 25 MG TAB GTB SCH ×2 (10:02→20:34)
[2018-08-17] MEDS: COLLAGENASE 5 GM (UD JAR) TOP SCH ×2 (10:03)
[2018-08-17] MEDS: LEVETIRACETAM (100 MG/ML) 5ML CUP GTB SCH ×2 (10:03→20:34)
[2018-08-17] MEDS: ASCORBIC ACID 250 MG TAB GTB SCH (10:03)
[2018-08-17] MEDS: FAMOTIDINE 20 MG TAB GTB SCH (10:03)
[2018-08-17] MEDS: POLYETHYLENE GLYCOL 17 GM PACKET GTB SCH (10:03)
[2018-08-17] MEDS: BALSAM PERU/CASTOR OIL 60 GM TUBE TOP SCH ×2 (10:04→20:35)
[2018-08-17] MEDS: DAKINS 0.0125%(1/40) 473 ML SOLUTION TP SCH ×2 (10:05→20:35)
[2018-08-17] MEDS: MEROPENEM 1 GM/50ML(PMX) 50 ML IVPB SCH (10:10)
--- NOTE | 2018-08-17 10:25 | PN ---
DATE: 08/17/2018 SUBJECTIVE: The patient is on ventilator support through tracheostomy. At [facility], he re fused to have any tracheostomy surgery, so he was sent back, he continues to be on ventilator support . He had a slight rise in temperature yesterday up to 99.8 where subsequently the temperature has come down to normal. Today, this morning, his temperature is 98.8, blood pressure is 90/59, pulse rate is 93, respirations 19, pulse oximetry 96% on oxygen saturation. PHYSICAL EXAMINATION: NECK: Tracheal secretions are minimal. No bleeding seen. HEART: Regular rhythm. CHEST: Could not examine as the patient refused to be examined. He is anxious and agitated and want s to have his pain medications. ABDOMEN: Soft, no distention seen. He is getting gastrostomy tube feedings which he seems to be jean erating well. EXTREMITIES: Show no edema. He is paraplegic. LABORATORY DATA: From today shows a WBC today shows sodium 142, potassium 5.3, bicarbonate 24, BUN 5 6, creatinine 1.4, glucose 91. It is unlikely his BUN and creatinine will show further improvement. CBC shows a WBC 4200, hemoglobin 7.9, hematocrit 26.3, platelets decreased to 131,000 but slightly b christine than yesterday. The chest x-ray taken yesterday is reported to show trace bilateral pleural ef fusions and right bibasilar atelectatic changes which seem to be chronic. The patient is on: 1. Vancomycin. 2. Meropenem. IMPRESSION: 1. Chronic ventilator dependent respiratory failure. 2. Resolving sepsis. 3. Resolving pneumonia. 4. Chronic kidney disease. 5. Chronic anemia. 6. History of nephrolithiasis. 7. Status post left nephrectomy. 8. Paraplegia secondary to previous spinal cord injury. 9. History of bipolar disorder. PLAN: 1. Continue long-term ventilator support. 2. Complete antibiotics as directed by the infectious disease learning consultant. 3. Continue bronchodilator inhalation therapy to clear the secretions and maintain pulmonary hygiene . 4. Continue tube feedings. 5. Continue deep venous thrombosis prophylaxis. The patient's pulmonary status overall remains stable. If no further intervention is contemplated, elisabet gautam may be had. Dictated By: HUMBERTO PEREZ MD SR/QUE Conf#: [id number] DID#: [id number] CC: JOSÉ ANTONIO MIRZA MD;*EndCC*
[2018-08-17] MEDS: ENOXAPARIN 40 MG/0.4 ML SYG SC SCH (10:32)
--- NOTE | 2018-08-17 11:05 | PN ---
Date/Time of Note Date/Time of Note DATE: 08/17/18 TIME: 10:59 Assessment/Plan VTE Prophylaxis Risk score (from Nsg)>0 risk: 6 SCD applied (from Ns): Yes SCD contraindicated: other Pharmacological prophylaxis: other Pharm contraindication: other Lines/Catheters IV Catheter Type (from Nrsg): PICC Line Central line still needed: Yes Urinary Cath still in place: Yes (Suprapubic catheter) Reason Cath still needed: urinary retention Assessment/Plan Assessment/Plan - Resolving sepsis secondary to pneumonia, continue antibiotics per ID recommendations. - Large tracheal opening, s/p evaluation by Dr Woodruff in ENT consultation with recommendation for free flap closure. Patient was [place] [facility] [place] refused to have surgery, not cooperative with care. - Ventilator dependent respiratory failure, continue pulmonary toilet and bronchodilators. Dr Ames is following in pulmonology consultation. - Acute on chronic renal failure. Continue to monitor BUN and creatinine. - Anemia of chronic disease. Continue Epogen. - Neurogenic bladder with suprapubic catheter. - Dysphagia with gastrostomy tube. - Seizures, continue Keppra - Multiple decubitus ulcers present on admission. - Cervical spine injury with paraplegia. - Bipolar disorder with psychosis. - Hx of right nephrectomy - Hx of left renal nephrolithiasis, hx of lithotripsy with insertion and subsequent removal of ureteral JJ stent. Further recommendations based on clinical course. Plan of care discussed with Dr. Barreto. Result Diagram: 08/17/18 0629 08/17/18 0629 Results 24hrs Laboratory Tests Test 08/17/18 06:29 White Blood Count 4.2 #L Red Blood Count 2.82 L Hemoglobin 7.9 L Hematocrit 26.3 L Mean Corpuscular Volume 93.3 Mean Corpuscular Hemoglobin 28.0 L Mean Corpuscular Hemoglobin Concent 30.0 L Red Cell Distribution Width 17.5 H Platelet Count 131 L Mean Platelet Volume 13.8 H Immature Granulocytes % 0.500 H Neutrophils % 70.4 Lymphocytes % 7.6 L Monocytes % 5.9 Eosinophils % 15.4 H Basophils % 0.2 Nucleated Red Blood Cells % 0.0 Immature Granulocytes # 0.020 Neutrophils # 3.0 Lymphocytes # 0.3 L Monocytes # 0.3 Eosinophils # 0.7 H Basophils # 0.0 Nucleated Red Blood Cells # 0.0 Sodium Level 142 Potassium Level 5.3 H Chloride Level 112 H Carbon Dioxide Level 24 Anion Gap 6 Blood Urea Nitrogen 56 H Creatinine 1.40 H Est Glomerular Filtrat Rate mL/min 56 L Glucose Level 91 Calcium Level 8.1 L Subjective 24 Hr Interval Summary Free Text/Dictation - K 5.3 - will give Kayexalate; fu BMP am Subjective hx not possible: pt non-verbal Constitutional: requiring O2 Cardiovascular: no complaints Gastrointestinal: no complaints Genitourinary: no complaints Musculoskeletal: no complaints Exam/Review of Systems Exam Vitals Vital Signs Date Temp Pulse Resp B/P (MAP) Pulse Ox O2 O2 Flow FiO2 Time Delivery Rate 08/17/18 98.8 93 19 90/59 (69) 96 07:32 08/17/18 40 07:00 Intake and Output 08/16/18 08/16/18 08/17/18 1515:00 23:00 07:00 IntakeIntake Total 1320 ml 1320 ml 1320 ml OutputOutput Total 600 ml 900 ml 2250 ml BalanceBalance 720 ml 420 ml -930 ml Constitutional: alert, non-verbal, frail Psych: nl mood/affect Head: atraumatic Eyes: nl lids, nl sclera Neck: other (trach intact) Respiratory: clear to auscultation Cardiovascular: nl pulses, other (s1s2) Gastrointestinal: soft, non-tender Musculoskeletal: joint tenderness, muscle weakness, range of motion Extremities: normal pulses Neurological: other (alert/responsive) Skin: other (decubs) Lymph: nontender Results Results 24hrs Laboratory Tests Test 08/17/18 06:29 White Blood Count 4.2 #L Red Blood Count 2.82 L Hemoglobin 7.9 L Hematocrit 26.3 L Mean Corpuscular Volume 93.3 Mean Corpuscular Hemoglobin 28.0 L Mean Corpuscular Hemoglobin Concent 30.0 L Red Cell Distribution Width 17.5 H Platelet Count 131 L Mean Platelet Volume 13.8 H Immature Granulocytes % 0.500 H Neutrophils % 70.4 Lymphocytes % 7.6 L Monocytes % 5.9 Eosinophils % 15.4 H Basophils % 0.2 Nucleated Red Blood Cells % 0.0 Immature Granulocytes # 0.020 Neutrophils # 3.0 Lymphocytes # 0.3 L Monocytes # 0.3 Eosinophils # 0.7 H Basophils # 0.0 Nucleated Red Blood Cells # 0.0 Sodium Level 142 Potassium Level 5.3 H Chloride Level 112 H Carbon Dioxide Level 24 Anion Gap 6 Blood Urea Nitrogen 56 H Creatinine 1.40 H Est Glomerular Filtrat Rate mL/min 56 L Glucose Level 91 Calcium Level 8.1 L Medications Medication Current Medications Acetaminophen/ Hydrocodone Bitart ([place] (5/325)) 1 tab Q4H PRN GTB PAIN LEVEL 7-10; Start 08/15/18 at 03:30 Diphenhydramine HCl (Benadryl) 25 mg HS PRN PO INSOMNIA; Start 08/15/18 at 03:30 Ondansetron HCl (Zofran Inj) 4 mg Q4H PRN IV NAUSEA AND/OR VOMITING; Start 08/15/18 at 03:30 Levetiracetam (Keppra Liquid) 500 mg BID GTB Last administered on 08/17/18 10:03; Admin Dose 500 MG; Start 08/15/18 at 09:00 Collagenase (Santyl) 1 applic DAILY TOP Last administered on 08/17/18 10:03; Admin Dose 1 APPLIC; Start 08/15/18 at 09:00 Quetiapine Fumarate (Seroquel) 75 mg BID GTB Last administered on 08/17/18 10:02; Admin Dose 75 MG; Start 08/15/18 at 09:00 Polyethylene Glycol (Miralax) 17 gm DAILY GTB Last administered on 08/17/18 10:03; Admin Dose 17 GM; Start 08/15/18 at 09:00 Enoxaparin Sodium (Lovenox) 40 mg DAILY SC Last administered on 08/17/18 10:32; Admin Dose 40 MG; Start 08/15/18 at 09:00 Meropenem/Sodium Chloride 50 ml @ 100 mls/hr Q12 IVPB Last administered on 08/17/18 10:10; Admin Dose 100 MLS/HR; Start 08/15/18 at 09:00 Multivitamins/ Minerals (Theragran-M) 1 tab DAILY GTB Last administered on 08/17/18 10:02; Admin Dose 1 TAB; Start 08/15/18 at 09:00 Ascorbic Acid (Vitamin C) 250 mg DAILY GTB Last administered on 08/17/18 10:03; Admin Dose 250 MG; Start 08/15/18 at 09:00 Zinc Sulfate (Zinc Sulfate) 220 mg DAILY GTB Last administered on 08/17/18 10:02; Admin Dose 220 MG; Start 08/15/18 at 09:00 Gabapentin (Neurontin Liquid) 300 mg BID GTB Last administered on 08/17/18 10:01; Admin Dose 300 MG; Start 08/15/18 at 09:00 Ferric Sodium Gluconate Complex 125 mg/Sodium Chloride 110 ml @ 110 mls/hr DAILY@1300 IVPB Last administered on 08/16/18 13:17; Admin Dose 110 MLS/HR; Start 08/15/18 at 13:00; Stop 08/20/18 at 13:59 Acetaminophen (Tylenol Liquid) 650 mg Q6 PRN GTB MILD PAIN(1-3)OR ELEVATED TEMP; Start 08/15/18 at 03:30 Vancomycin HCl (Vanco Iv Per Pharmacy) VANCOMYCIN PER PHARMACY PER PROTOCOL XX ; Start 08/15/18 at 03:30 Hydromorphone HCl (Dilaudid) 0.5 mg Q3H PRN IV SEVERE PAIN LEVEL 7-10 Last administered on 08/17/18 10:06; Admin Dose 0.5 MG; Start 08/15/18 at 03:30 Albuterol (Ventolin Hfa) 4 puff Q6H RESP THERAPY INH Last administered on 08/17/18 08:00; Admin Dose 4 PUFF; Start 08/15/18 at 08:00 Ipratropium [place] (Atrovent Hfa) 4 puff Q6H RESP THERAPY INH Last administered on 08/17/18 08:00; Admin Dose 4 PUFF; Start 08/15/18 at 08:00 Vancomycin HCl 250 ml @ 125 mls/hr Q48H IVPB Last administered on 08/17/18 06:30; Admin Dose 125 MLS/HR; Start 08/17/18 at 06:00 Sodium Hypochlorite (Dakins Diluted (1/40)) 1 applic BID TP Last administered on 08/17/18 10:05; Admin Dose 1 APPLIC; Start 08/15/18 at 21:00 Collagenase (Santyl) 1 applic BID TOP Last administered on 08/17/18 10:03; Admin Dose 1 APPLIC; Start 08/15/18 at 21:00 Famotidine (Pepcid) 20 mg DAILY GTB Last administered on 08/17/18at 10:03; Admin Dose 20 MG; Start 08/16/18 at 09:00 Miscellaneous Information (*Rx Drug Level Order Reminder*) VANCO TROUGH @ 0,500 ON... 0500 ONCE XX ; Start 08/19/18 at 05:00; Stop 08/19/18 at 05:01 NAE VELAZCO Aug 17, 2018 11:05
--- NOTE | 2018-08-17 11:21 | CONS ---
Assessment/Plan Assessment/Plan Hospital Course (Demo Recall) No acute events overnight patient is lying comfortably in bed no fevers overnight. Allergies: Tetracyclines Antimicrobials: Vancomycin, meropenem Indwelling: Trach, PEG, PICC line, suprapubic catheter Physical examination: Chronically ill-appearing wasted middle-aged man who is awake in no distress. Head atraumatic normocephalic sclera nonicteric vehicle mucosa dry neck is supple tracheostomy present chest rise symmetrical breath sounds diminished the bases. Heart: S1-S2. Abdomen soft bowel sounds present. Extremities wasted contractured Assessment: 1. Status post sepsis 2. Recurrent UTI/acute pyelonephritis, treated 3. Cronic respiratory failure 4. Acute on chronic kidney disease 5. Incomplete quadriplegia 6. Pancytopenia 7. History of left breast nephrectomy 8. Multiple chronic decubitus ulcers 10. History of MRSA colonization Plan: Patient is stable, cxr noted, will dc abx and observe, f/u repeat cx's Consultation Date/Type/Reason Admit Date/Time Aug 15, 2018 at 02:30 Initial Consult Date 08/16/18 Type of Consult id Requesting Provider: JOSÉ ANTONIO MIRZA MD Date/Time of Note DATE: 08/17/18 TIME: 11:20 Exam/Review of Systems Exam Vitals Vital Signs Date Temp Pulse Resp B/P (MAP) Pulse Ox O2 O2 Flow FiO2 Time Delivery Rate 08/17/18 98.8 93 19 90/59 (69) 96 07:32 08/17/18 40 07:00 Intake and Output 08/16/18 08/16/18 08/17/18 1515:00 23:00 07:00 IntakeIntake Total 1320 ml 1320 ml 1320 ml OutputOutput Total 600 ml 900 ml 2250 ml BalanceBalance 720 ml 420 ml -930 ml Results Result Diagram: 08/17/18 0629 08/17/18 0629 Results 24hrs Laboratory Tests Test 08/17/18 06:29 White Blood Count 4.2 #L Red Blood Count 2.82 L Hemoglobin 7.9 L Hematocrit 26.3 L Mean Corpuscular Volume 93.3 Mean Corpuscular Hemoglobin 28.0 L Mean Corpuscular Hemoglobin Concent 30.0 L Red Cell Distribution Width 17.5 H Platelet Count 131 L Mean Platelet Volume 13.8 H Immature Granulocytes % 0.500 H Neutrophils % 70.4 Lymphocytes % 7.6 L Monocytes % 5.9 Eosinophils % 15.4 H Basophils % 0.2 Nucleated Red Blood Cells % 0.0 Immature Granulocytes # 0.020 Neutrophils # 3.0 Lymphocytes # 0.3 L Monocytes # 0.3 Eosinophils # 0.7 H Basophils # 0.0 Nucleated Red Blood Cells # 0.0 Sodium Level 142 Potassium Level 5.3 H Chloride Level 112 H Carbon Dioxide Level 24 Anion Gap 6 Blood Urea Nitrogen 56 H Creatinine 1.40 H Est Glomerular Filtrat Rate mL/min 56 L Glucose Level 91 Calcium Level 8.1 L Medications Medication Current Medications Acetaminophen/ Hydrocodone Bitart ([place] (5/325)) 1 tab Q4H PRN GTB PAIN LEVEL 7-10; Start 08/15/18 at 03:30 Diphenhydramine HCl (Benadryl) 25 mg HS PRN PO INSOMNIA; Start 08/15/18 at 03:30 Ondansetron HCl (Zofran Inj) 4 mg Q4H PRN IV NAUSEA AND/OR VOMITING; Start 08/15/18 at 03:30 Levetiracetam (Keppra Liquid) 500 mg BID GTB Last administered on 08/17/18 10:03; Admin Dose 500 MG; Start 08/15/18 at 09:00 Collagenase (Santyl) 1 applic DAILY TOP Last administered on 08/17/18 10:03; Admin Dose 1 APPLIC; Start 08/15/18 at 09:00 Quetiapine Fumarate (Seroquel) 75 mg BID GTB Last administered on 08/17/18 10:02; Admin Dose 75 MG; Start 08/15/18 at 09:00 Polyethylene Glycol (Miralax) 17 gm DAILY GTB Last administered on 08/17/18 10:03; Admin Dose 17 GM; Start 08/15/18 at 09:00 Enoxaparin Sodium (Lovenox) 40 mg DAILY SC Last administered on 08/17/18 10:32; Admin Dose 40 MG; Start 08/15/18 at 09:00 Meropenem/Sodium Chloride 50 ml @ 100 mls/hr Q12 IVPB Last administered on 08/17/18 10:10; Admin Dose 100 MLS/HR; Start 08/15/18 at 09:00 Multivitamins/ Minerals (Theragran-M) 1 tab DAILY GTB Last administered on 08/17/18 10:02; Admin Dose 1 TAB; Start 08/15/18 at 09:00 Ascorbic Acid (Vitamin C) 250 mg DAILY GTB Last administered on 08/17/18 10:03; Admin Dose 250 MG; Start 08/15/18 at 09:00 Zinc Sulfate (Zinc Sulfate) 220 mg DAILY GTB Last administered on 08/17/18 10:02; Admin Dose 220 MG; Start 08/15/18 at 09:00 Gabapentin (Neurontin Liquid) 300 mg BID GTB Last administered on 08/17/18 10:01; Admin Dose 300 MG; Start 08/15/18 at 09:00 Ferric Sodium Gluconate Complex 125 mg/Sodium Chloride 110 ml @ 110 mls/hr DAILY@1300 IVPB Last administered on 08/16/18 13:17; Admin Dose 110 MLS/HR; Start 08/15/18 at 13:00; Stop 08/20/18 at 13:59 Acetaminophen (Tylenol Liquid) 650 mg Q6 PRN GTB MILD PAIN(1-3)OR ELEVATED TEMP; Start 08/15/18 at 03:30 Vancomycin HCl (Vanco Iv Per Pharmacy) VANCOMYCIN PER PHARMACY PER PROTOCOL XX ; Start 08/15/18 at 03:30 Hydromorphone HCl (Dilaudid) 0.5 mg Q3H PRN IV SEVERE PAIN LEVEL 7-10 Last administered on 08/17/18 10:06; Admin Dose 0.5 MG; Start 08/15/18 at 03:30 Albuterol (Ventolin Hfa) 4 puff Q6H RESP THERAPY INH Last administered on 08/17/18 08:00; Admin Dose 4 PUFF; Start 08/15/18 at 08:00 Ipratropium [place] (Atrovent Hfa) 4 puff Q6H RESP THERAPY INH Last administered on 08/17/18 08:00; Admin Dose 4 PUFF; Start 08/15/18 at 08:00 Vancomycin HCl 250 ml @ 125 mls/hr Q48H IVPB Last administered on 08/17/18 06:30; Admin Dose 125 MLS/HR; Start 08/17/18 at 06:00 Sodium Hypochlorite (Dakins Diluted (1/40)) 1 applic BID TP Last administered on 08/17/18at 10:05; Admin Dose 1 APPLIC; Start 08/15/18 at 21:00 Collagenase (Santyl) 1 applic BID TOP Last administered on 08/17/18at 10:03; Admin Dose 1 APPLIC; Start 08/15/18 at 21:00 Famotidine (Pepcid) 20 mg DAILY GTB Last administered on 08/17/18 10:03; Admin Dose 20 MG; Start 08/16/18 at 09:00 Miscellaneous Information (*Rx Drug Level Order Reminder*) VANCO TROUGH @ 0,500 ON... 0500 ONCE XX ; Start 08/19/18 at 05:00; Stop 08/19/18 at 05:01 REGINALDO CHERY NP Aug 17, 2018 11:21
--- NOTE | 2018-08-17 12:04 | CONS ---
Assessment/Plan Assessment/Plan Assessment/Plan (Daily) 1. Acute kidney Injury on CKD III/IV due to prerenal azotemia + ATN from sepsis 2. Status post sepsis 3. 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 ventilator dependent respiratory failure with tracheostomy, dysphagia with G-tube, chronic kidney disease III and history of right nephrectomy and left re nal nephrolithiasis, bipolar disorder Plan: IV abx meropenem and vancomycin for sepsis, ID following BUNC/Cr 56/1.4, K 5.3- IV iron IV iron for severe iron deficiney kayexlate 15 gram PO x 1 dose now Will follow up Consultation Date/Type/Reason Admit Date/Time Aug 15, 2018 at 02:30 Initial Consult Date 08/16/18 Type of Consult NEPHROLOGY Requesting Provider: JOSÉ ANTONIO MIRZA MD Date/Time of Note DATE: 08/17/18 TIME: 12:04 Exam/Review of Systems Exam Vitals Vital Signs Date Temp Pulse Resp B/P (MAP) Pulse Ox O2 O2 Flow FiO2 Time Delivery Rate 08/17/18 98.0 90 19 100/72 97 11:22 (81) 08/17/18 40 07:00 Intake and Output 08/16/18 08/16/18 08/17/18 1515:00 23:00 07:00 IntakeIntake Total 1320 ml 1320 ml 1320 ml OutputOutput Total 600 ml 900 ml 2250 ml BalanceBalance 720 ml 420 ml -930 ml Exam Constitutional: alert, oriented Head: normocephalic Neck: supple, other (Tracheostomy) Respiratory: diminished breath sounds, other (Scattered rhonchi) Cardiovascular: regular rate and rhythm Gastrointestinal: soft, non-tender, other (G-tube) Genitourinary - Male: other (Suprapubic catheter) Musculoskeletal: other (Contracted ) Extremities: normal pulses Neurological: confused Skin: other (Multiple wounds) Results Result Diagram: 08/17/18 0629 08/17/18 0629 Results 24hrs Laboratory Tests Test 08/17/18 06:29 White Blood Count 4.2 #L Red Blood Count 2.82 L Hemoglobin 7.9 L Hematocrit 26.3 L Mean Corpuscular Volume 93.3 Mean Corpuscular Hemoglobin 28.0 L Mean Corpuscular Hemoglobin Concent 30.0 L Red Cell Distribution Width 17.5 H Platelet Count 131 L Mean Platelet Volume 13.8 H Immature Granulocytes % 0.500 H Neutrophils % 70.4 Lymphocytes % 7.6 L Monocytes % 5.9 Eosinophils % 15.4 H Basophils % 0.2 Nucleated Red Blood Cells % 0.0 Immature Granulocytes # 0.020 Neutrophils # 3.0 Lymphocytes # 0.3 L Monocytes # 0.3 Eosinophils # 0.7 H Basophils # 0.0 Nucleated Red Blood Cells # 0.0 Sodium Level 142 Potassium Level 5.3 H Chloride Level 112 H Carbon Dioxide Level 24 Anion Gap 6 Blood Urea Nitrogen 56 H Creatinine 1.40 H Est Glomerular Filtrat Rate mL/min 56 L Glucose Level 91 Calcium Level 8.1 L Medications Medication Current Medications Acetaminophen/ Hydrocodone Bitart ([place] (5/325)) 1 tab Q4H PRN GTB PAIN LEVEL 7-10; Start 08/15/18 at 03:30 Diphenhydramine HCl (Benadryl) 25 mg HS PRN PO INSOMNIA; Start 08/15/18 at 03:30 Ondansetron HCl (Zofran Inj) 4 mg Q4H PRN IV NAUSEA AND/OR VOMITING; Start 08/15/18 at 03:30 Levetiracetam (Keppra Liquid) 500 mg BID GTB Last administered on 08/17/18 10:03; Admin Dose 500 MG; Start 08/15/18 at 09:00 Collagenase (Santyl) 1 applic DAILY TOP Last administered on 08/17/18 10:03; Admin Dose 1 APPLIC; Start 08/15/18 at 09:00 Quetiapine Fumarate (Seroquel) 75 mg BID GTB Last administered on 08/17/18 10 :02; Admin Dose 75 MG; Start 08/15/18 at 09:00 Polyethylene Glycol (Miralax) 17 gm DAILY GTB Last administered on 08/17/18 10:03; Admin Dose 17 GM; Start 08/15/18 at 09:00 Enoxaparin Sodium (Lovenox) 40 mg DAILY SC Last administered on 08/17/18 10:32; Admin Dose 40 MG; Start 08/15/18 at 09:00 Multivitamins/ Minerals (Theragran-M) 1 tab DAILY GTB Last administered on 08/17/18 10:02; Admin Dose 1 TAB; Start 08/15/18 at 09:00 Ascorbic Acid (Vitamin C) 250 mg DAILY GTB Last administered on 08/17/18 10:03; Admin Dose 250 MG; Start 08/15/18 at 09:00 Zinc Sulfate (Zinc Sulfate) 220 mg DAILY GTB Last administered on 08/17/18 10:02; Admin Dose 220 MG; Start 08/15/18 at 09:00 Gabapentin (Neurontin Liquid) 300 mg BID GTB Last administered on 08/17/18 10:01; Admin Dose 300 MG; Start 08/15/18 at 09:00 Ferric Sodium Gluconate Complex 125 mg/Sodium Chloride 110 ml @ 110 mls/hr DAILY@1300 IVPB Last administered on 08/16/18 13:17; Admin Dose 110 MLS/HR; Start 08/15/18 at 13:00; Stop 08/20/18 at 13:59 Acetaminophen (Tylenol Liquid) 650 mg Q6 PRN GTB MILD PAIN(1-3)OR ELEVATED TEMP; Start 08/15/18 at 03:30 Hydromorphone HCl (Dilaudid) 0.5 mg Q3H PRN IV SEVERE PAIN LEVEL 7-10 Last admi nistered on 08/17/18 10:06; Admin Dose 0.5 MG; Start 08/15/18 at 03:30 Albuterol (Ventolin Hfa) 4 puff Q6H RESP THERAPY INH Last administered on 08/17/18 08:00; Admin Dose 4 PUFF; Start 08/15/18 at 08:00 Ipratropium [place] (Atrovent Hfa) 4 puff Q6H RESP THERAPY INH Last administered on 08/17/18 08:00; Admin Dose 4 PUFF; Start 08/15/18 at 08:00 Sodium Hypochlorite (Dakins Diluted (1/40)) 1 applic BID TP Last administered on 08/17/18 10:05; Admin Dose 1 APPLIC; Start 08/15/18 at 21:00 Collagenase (Santyl) 1 applic BID TOP Last administered on 08/17/18 10:03; Admin Dose 1 APPLIC; Start 08/15/18 at 21:00 Famotidine (Pepcid) 20 mg DAILY GTB Last administered on 08/17/18 10:03; Admin Dose 20 MG; Start 08/16/18 at 09:00 TIARA CISNEROS MD Aug 17, 2018 12:04
[2018-08-17] MEDS ORDERED: NA POLYST SULFON 15 GM/60 ML BTL PO ONE (12:30)
[2018-08-17] MEDS: SOD FERRIC GLUC COMPLX 125 MG in SOD CHLORIDE 0.9% 100 ML IVPB SCH (14:50)
[2018-08-18] VITALS (18 sets, daily range): BP systolic 86–112; BP diastolic 57–84; PULSE 79–87; RESP 19–35
[2018-08-18] MEDS: IPRATROPIUM (HFA) 12.9 GM INHALER INH SCH ×4 (01:00→20:35)
[2018-08-18] MEDS: ALBUTEROL HFA 8 GM INHALER INH SCH ×4 (01:01→20:35)
[2018-08-18] MEDS: HYDROmorphONE 0.5 MG/0.5 ML SYG IV PRN ×7 (03:14→23:11)
[2018-08-18] MEDS: POLYETHYLENE GLYCOL 17 GM PACKET GTB SCH (09:00)
--- NOTE | 2018-08-18 09:36 | CONS ---
Assessment/Plan Assessment/Plan Hospital Course (Demo Recall) No acute events overnight Allergies: Tetracyclines Antimicrobials: none Indwelling: Trach, PEG, PICC line, suprapubic catheter Physical examination: Chronically ill-appearing wasted middle-aged man who is awake in no distress. Head atraumatic normocephalic sclera nonicteric vehicle mucosa dry neck is supple tracheostomy present chest rise symmetrical breath sounds diminished the bases. Heart: S1-S2. Abdomen soft bowel sounds present. Extremities wasted contractured Assessment: 1. Status post sepsis 2. Recurrent UTI==> yeast, poss colonized 3. Cronic respiratory failure 4. Acute on chronic kidney disease 5. Incomplete quadriplegia 6. Pancytopenia 7. History of left breast nephrectomy 8. Multiple chronic decubitus ulcers 10. History of MRSA colonization Plan: Patient is stable, will add Diflucan Consultation Date/Type/Reason Admit Date/Time Aug 15, 2018 at 02:30 Initial Consult Date 08/16/18 Type of Consult id Requesting Provider: JOSÉ ANTONIO MIRZA MD Date/Time of Note DATE: 08/18/18 TIME: 09:33 Exam/Review of Systems Exam Vitals Vital Signs Date Temp Pulse Resp B/P (MAP) Pulse Ox O2 O2 Flow FiO2 Time Delivery Rate 08/18/18 97.7 87 19 100/68 100 07:44 (79) 08/18/18 40 04:36 Intake and Output 08/17/18 08/17/18 08/18/18 1515:00 23:00 07:00 IntakeIntake Total 1320 ml OutputOutput Total 1600 ml 800 ml BalanceBalance -280 ml -800 ml Results Result Diagram: 08/17/18 0629 08/18/18 0701 Results 24hrs Laboratory Tests Test 08/18/18 07:01 Sodium Level 141 Potassium Level 4.6 Chloride Level 112 H Carbon Dioxide Level 25 Anion Gap 4 L Blood Urea Nitrogen 56 H Creatinine 1.23 Est Glomerular Filtrat Rate mL/min > 60 Glucose Level 85 Calcium Level 8.3 L Medications Medication Current Medications Acetaminophen/ Hydrocodone Bitart ([place] (5/325)) 1 tab Q4H PRN GTB PAIN LEVEL 7-10; Start 08/15/18 at 03:30 Diphenhydramine HCl (Benadryl) 25 mg HS PRN PO INSOMNIA; Start 08/15/18 at 03:30 Ondansetron HCl (Zofran Inj) 4 mg Q4H PRN IV NAUSEA AND/OR VOMITING; Start 08/15/18 at 03:30 Levetiracetam (Keppra Liquid) 500 mg BID GTB Last administered on 08/17/18 20:34; Admin Dose 500 MG; Start 08/15/18 at 09:00 Quetiapine Fumarate (Seroquel) 75 mg BID GTB Last administered on 08/17/18 20:34; Admin Dose 75 MG; Start 08/15/18 at 09:00 Polyethylene Glycol (Miralax) 17 gm DAILY GTB Last administered on 08/17/18 10:03; Admin Dose 17 GM; Start 08/15/18 at 09:00 Enoxaparin Sodium (Lovenox) 40 mg DAILY SC Last administered on 08/17/18 10:32; Admin Dose 40 MG; Start 08/15/18 at 09:00 Multivitamins/ Minerals (Theragran-M) 1 tab DAILY GTB Last administered on 08/17/18 10:02; Admin Dose 1 TAB; Start 08/15/18 at 09:00 Ascorbic Acid (Vitamin C) 250 mg DAILY GTB Last administered on 08/17/18 10:03; Admin Dose 250 MG; Start 08/15/18 at 09:00 Zinc Sulfate (Zinc Sulfate) 220 mg DAILY GTB Last administered on 08/17/18 10:02; Admin Dose 220 MG; Start 08/15/18 at 09:00 Gabapentin (Neurontin Liquid) 300 mg BID GTB Last administered on 08/17/18 20:34; Admin Dose 300 MG; Start 08/15/18 at 09:00 Ferric Sodium Gluconate Complex 125 mg/Sodium Chloride 110 ml @ 110 mls/hr DAILY@1300 IVPB Last administered on 08/17/18 14:50; Admin Dose 110 MLS/HR; Start 08/15/18 at 13:00; Stop 08/20/18 at 13:59 Acetaminophen (Tylenol Liquid) 650 mg Q6 PRN GTB MILD PAIN(1-3)OR ELEVATED TEMP; Start 08/15/18 at 03:30 Hydromorphone HCl (Dilaudid) 0.5 mg Q3H PRN IV SEVERE PAIN LEVEL 7-10 Last administered on 08/18/18 06:35; Admin Dose 0.5 MG; Start 08/15/18 at 03:30 Albuterol (Ventolin Hfa) 4 puff Q6H RESP THERAPY INH Last administered on 08/18/18 01:01; Admin Dose 4 PUFF; Start 08/15/18 at 08:00 Ipratropium [place] (Atrovent Hfa) 4 puff Q6H RESP THERAPY INH Last administ ered on 08/18/18 01:00; Admin Dose 4 PUFF; Start 08/15/18 at 08:00 Sodium Hypochlorite (Dakins Diluted (/40)) 1 applic BID TP Last administered on 08/17/18 20:35; Admin Dose 1 APPLIC; Start 08/15/18 at 21:00 Famotidine (Pepcid) 20 mg DAILY GTB Last administered on 08/17/18 10:03; Admin Dose 20 MG; Start 08/16/18 at 09:00 REGINALDO CHERY NP Aug 18, 2018 09:36
[2018-08-18] MEDS: DAKINS 0.0125%(1/40) 473 ML SOLUTION TP SCH ×2 (09:38→21:28)
[2018-08-18] MEDS: LEVETIRACETAM (100 MG/ML) 5ML CUP GTB SCH ×2 (09:39→21:27)
[2018-08-18] MEDS: GABAPENTIN (50 MG/ML PO SYG) GTB SCH ×2 (09:39→21:27)
[2018-08-18] MEDS: BALSAM PERU/CASTOR OIL 60 GM TUBE TOP SCH ×2 (09:39→21:28)
[2018-08-18] MEDS: FAMOTIDINE 20 MG TAB GTB SCH (09:40)
[2018-08-18] MEDS: QUETIAPINE 25 MG TAB GTB SCH ×2 (09:40→21:27)
[2018-08-18] MEDS: MULTIVITAMINS/MINERALS TAB GTB SCH (09:40)
[2018-08-18] MEDS: ASCORBIC ACID 250 MG TAB GTB SCH (09:40)
[2018-08-18] MEDS: ZINC SULFATE 220 MG CAP GTB SCH (09:40)
[2018-08-18] MEDS: ENOXAPARIN 40 MG/0.4 ML SYG SC SCH (10:00)
--- NOTE | 2018-08-18 11:14 | PN ---
Date/Time of Note Date/Time of Note DATE: 08/18/18 TIME: 11:14 Assessment/Plan VTE Prophylaxis Risk score (from Nsg)>0 risk: 5 SCD applied (from Nsg): Yes Pharmacological prophylaxis: LMWH Lines/Catheters IV Catheter Type (from Nrsg): PICC Line Central line still needed: Yes Urinary Cath still in place: No (Suprapubic catheter) Assessment/Plan Hospital Course - Resolving sepsis secondary to pneumonia, continue antibiotics per ID recommendations. - Large tracheal opening, s/p evaluation by Dr Woodruff in ENT consultation with recommendation for free flap closure. Patient was evaluated at [facility] [place] [facility] refused to have surgery, not cooperative with care. - Ventilator dependent respiratory failure, continue pulmonary toilet and bronchodilators. Dr Ames is following in pulmonology consultation. - Acute on chronic renal failure. Continue to monitor BUN and creatinine. - Anemia of chronic disease. Continue Epogen. - Neurogenic bladder with suprapubic catheter. - Dysphagia with gastrostomy tube. - Seizures, continue Keppra - Multiple decubitus ulcers present on admission. - Cervical spine injury with paraplegia. - Bipolar disorder with psychosis. - Hx of right nephrectomy - Hx of left renal nephrolithiasis, hx of lithotripsy with insertion and subsequent removal of ureteral JJ stent. Result Diagram: 08/17/18 0629 08/18/18 0701 Results 24hrs Laboratory Tests Test 08/18/18 07:01 Sodium Level 141 Potassium Level 4.6 Chloride Level 112 H Carbon Dioxide Level 25 Anion Gap 4 L Blood Urea Nitrogen 56 H Creatinine 1.23 Est Glomerular Filtrat Rate mL/min > 60 Glucose Level 85 Calcium Level 8.3 L Subjective 24 Hr Interval Summary Free Text/Dictation Patient has no complaints Exam/Review of Systems Exam Vitals Vital Signs Date Temp Pulse Resp B/P (MAP) Pulse Ox O2 O2 Flow FiO2 Time Delivery Rate 08/18/18 97.7 87 19 100/68 100 07:44 (79) 08/18/18 40 04:36 Intake and Output 08/17/18 08/17/18 08/18/18 1414:59 22:59 06:59 IntakeIntake Total 1320 ml OutputOutput Total 1600 ml 800 ml BalanceBalance -280 ml -800 ml Constitutional: well developed Head: normocephalic, atraumatic Neck: supple Respiratory: diminished breath sounds Cardiovascular: regular rate and rhythm Gastrointestinal: soft, non-tender Extremities: normal pulses Results Results 24hrs Laboratory Tests Test 08/18/18 07:01 Sodium Level 141 Potassium Level 4.6 Chloride Level 112 H Carbon Dioxide Level 25 Anion Gap 4 L Blood Urea Nitrogen 56 H Creatinine 1.23 Est Glomerular Filtrat Rate mL/min > 60 Glucose Level 85 Calcium Level 8.3 L Medications Medication Current Medications Acetaminophen/ Hydrocodone Bitart ([place] (5/325)) 1 tab Q4H PRN GTB PAIN LEVEL 7-10; Start 08/15/18 at 03:30 Diphenhydramine HCl (Benadryl) 25 mg HS PRN PO INSOMNIA; Start 08/15/18 at 03:30 Ondansetron HCl (Zofran Inj) 4 mg Q4H PRN IV NAUSEA AND/OR VOMITING; Start 08/15/18 at 03:30 Levetiracetam (Keppra Liquid) 500 mg BID GTB Last administered on 08/18/18 09:39; Admin Dose 500 MG; Start 08/15/18 at 09:00 Quetiapine Fumarate (Seroquel) 75 mg BID GTB Last administered on 08/18/18 09:40; Admin Dose 75 MG; Start 08/15/18 at 09:00 Polyethylene Glycol (Miralax) 17 gm DAILY GTB Last administered on 08/18/18 09:00; Admin Dose 17 GM; Start 08/15/18 at 09:00 Enoxaparin Sodium (Lovenox) 40 mg DAILY SC Last administered on 08/18/18 10:00; Admin Dose 40 MG; Start 08/15/18 at 09:00 Multivitamins/ Minerals (Theragran-M) 1 tab DAILY GTB Last administered on 08/18/18 09:40; Admin Dose 1 TAB; Start 08/15/18 at 09:00 Ascorbic Acid (Vitamin C) 250 mg DAILY GTB Last administered on 08/18/18 09:40; Admin Dose 250 MG; Start 08/15/18 at 09:00 Zinc Sulfate (Zinc Sulfate) 220 mg DAILY GTB Last administered on 08/18/18 09:40; Admin Dose 220 MG; Start 08/15/18 at 09:00 Gabapentin (Neurontin Liquid) 300 mg BID GTB Last administered on 08/18/18 09:39; Admin Dose 300 MG; Start 08/15/18 at 09:00 Ferric Sodium Gluconate Complex 125 mg/Sodium Chloride 110 ml @ 110 mls/hr DAILY@1300 IVPB Last administered on 08/17/18 14:50; Admin Dose 110 MLS/HR; Start 08/15/18 at 13:00; Stop 08/20/18 at 13:59 Acetaminophen (Tylenol Liquid) 650 mg Q6 PRN GTB MILD PAIN(1-3)OR ELEVATED TEMP; Start 08/15/18 at 03:30 Hydromorphone HCl (Dilaudid) 0.5 mg Q3H PRN IV SEVERE PAIN LEVEL 7-10 Last administered on 08/18/18 09:36; Admin Dose 0.5 MG; Start 08/15/18 at 03:30 Albuterol (Ventolin Hfa) 4 puff Q6H RESP THERAPY INH Last administered on 08/18/18 01:01; Admin Dose 4 PUFF; Start 08/15/18 at 08:00 Ipratropium [place] (Atrovent Hfa) 4 puff Q6H RESP THERAPY INH Last administered on 08/18/18 01:00; Admin Dose 4 PUFF; Start 08/15/18 at 08:00 Sodium Hypochlorite (Dakins Diluted ()) 1 applic BID TP Last administered on 08/18/18 09:38; Admin Dose 1 APPLIC; Start 08/15/18 at 21:00 Famotidine (Pepcid) 20 mg DAILY GTB Last administered on 08/18/18 09:40; Admin Dose 20 MG; Start 08/16/18 at 09:00 Fluconazole (Diflucan) 100 mg DAILY PO ; Start 08/18/18 at 10:00 DANAY MUIR Aug 18, 2018 11:14
--- NOTE | 2018-08-18 12:49 | CONS ---
Assessment/Plan Assessment/Plan Assessment/Plan (Daily) 1. Acute kidney Injury on CKD III/IV due to prerenal azotemia + ATN from sepsis 2. Status post sepsis 3. 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 ventilator dependent respiratory failure with tracheostomy, dysphagia with G-tube, chronic kidney disease III and history of right nephrectomy and left re nal nephrolithiasis, bipolar disorder Plan: IV abx meropenem and vancomycin for sepsis, ID following BUNC/Cr 56/1.2, K 4.1 -Hgb 7.9 on IV iron IV iron for severe iron deficiney Will follow up Patient seen in collaboration with Dr Paul Barker Consultation Date/Type/Reason Admit Date/Time Aug 15, 2018 at 02:30 Initial Consult Date 08/16/18 Type of Consult NEPHROLOGY Reason for Consultation Acute kidney Injury on CKD Requesting Provider: JOSÉ ANTONIO MIRZA MD Date/Time of Note DATE: 08/18/18 TIME: 12:48 24 HR Interval Summary Free Text/Dictation NAD Afebrile Subjective hx not possible: pt non-verbal Constitutional: requiring O2 Exam/Review of Systems Exam Vitals Vital Signs Date Temp Pulse Resp B/P (MAP) Pulse Ox O2 O2 Flow FiO2 Time Delivery Rate 08/18/18 98.9 82 21 99/66 (77) 100 11:36 08/18/18 40 11:14 Intake and Output 08/17/18 08/17/18 08/18/18 1515:00 23:00 07:00 IntakeIntake Total 1320 ml OutputOutput Total 1600 ml 800 ml BalanceBalance -280 ml -800 ml Constitutional: alert, non-verbal, frail Psych: nl mood/affect Head: normocephalic Eyes: nl lids, nl sclera ENMT: nl external ears & nose Neck: other (trach intact) Respiratory: clear to auscultation Cardiovascular: nl pulses, other (s1s2) Gastrointestinal: soft, other (gt inatct) Musculoskeletal: muscle weakness Extremities: normal pulses Neurological: confused Skin: other (decubs) Results Result Diagram: 08/17/18 0629 08/18/18 0701 Results 24hrs Laboratory Tests Test 08/18/18 07:01 Sodium Level 141 Potassium Level 4.6 Chloride Level 112 H Carbon Dioxide Level 25 Anion Gap 4 L Blood Urea Nitrogen 56 H Creatinine 1.23 Est Glomerular Filtrat Rate mL/min > 60 Glucose Level 85 Calcium Level 8.3 L Medications Medication Current Medications Acetaminophen/ Hydrocodone Bitart ([place] (5/325)) 1 tab Q4H PRN GTB PAIN LEVEL 7-10; Start 08/15/18 at 03:30 Diphenhydramine HCl (Benadryl) 25 mg HS PRN PO INSOMNIA; Start 08/15/18 at 03:30 Ondansetron HCl (Zofran Inj) 4 mg Q4H PRN IV NAUSEA AND/OR VOMITING; Start 08/15/18 at 03:30 Levetiracetam (Keppra Liquid) 500 mg BID GTB Last administered on 08/18/18 09:39; Admin Dose 500 MG; Start 08/15/18 at 09:00 Quetiapine Fumarate (Seroquel) 75 mg BID GTB Last administered on 08/18/18 09:40; Admin Dose 75 MG; Start 08/15/18 at 09:00 Polyethylene Glycol (Miralax) 17 gm DAILY GTB Last administered on 08/18/18 09:00; Admin Dose 17 GM; Start 08/15/18 at 09:00 Enoxaparin Sodium (Lovenox) 40 mg DAILY SC Last administered on 08/18/18 10:00; Admin Dose 40 MG; Start 08/15/18 at 09:00 Multivitamins/ Minerals (Theragran-M) 1 tab DAILY GTB Last administered on 08/18/18 09:40; Admin Dose 1 TAB; Start 08/15/18 at 09:00 Ascorbic Acid (Vitamin C) 250 mg DAILY GTB Last administered on 08/18/18 09:40; Admin Dose 250 MG; Start 08/15/18 at 09:00 Zinc Sulfate (Zinc Sulfate) 220 mg DAILY GTB Last administered on 08/18/18 09:40; Admin Dose 220 MG; Start 08/15/18 at 09:00 Gabapentin (Neurontin Liquid) 300 mg BID GTB Last administered on 08/18/18 09:39; Admin Dose 300 MG; Start 08/15/18 at 09:00 Ferric Sodium Gluconate Complex 125 mg/Sodium Chloride 110 ml @ 110 mls/hr DAILY@1300 IVPB Last administered on 08/17/18 14:50; Admin Dose 110 MLS/HR; Start 08/15/18 at 13:00; Stop 08/20/18 at 13:59 Acetaminophen (Tylenol Liquid) 650 mg Q6 PRN GTB MILD PAIN(1-3)OR ELEVATED TEMP; Start 08/15/18 at 03:30 Hydromorphone HCl (Dilaudid) 0.5 mg Q3H PRN IV SEVERE PAIN LEVEL 7-10 Last administered on 08/18/18 09:36; Admin Dose 0.5 MG; Start 08/15/18 at 03:30 Albuterol (Ventolin Hfa) 4 puff Q6H RESP THERAPY INH Last administered on 08/18/18 01:01; Admin Dose 4 PUFF; Start 08/15/18 at 08:00 Ipratropium [place] (Atrovent Hfa) 4 puff Q6H RESP THERAPY INH Last administered on 08/18/18 01:00; Admin Dose 4 PUFF; Start 08/15/18 at 08:00 Sodium Hypochlorite (Dakins Diluted ()) 1 applic BID TP Last administered on 08/18/18 09:38; Admin Dose 1 APPLIC; Start 08/15/18 at 21:00 Famotidine (Pepcid) 20 mg DAILY GTB Last administered on 08/18/18 09:40; Admin Dose 20 MG; Start 08/16/18 at 09:00 Fluconazole (Diflucan) 100 mg DAILY PO ; Start 08/18/18 at 10:00 NAE VELAZCO Aug 18, 2018 12:49
[2018-08-18] MEDS: SOD FERRIC GLUC COMPLX 125 MG in SOD CHLORIDE 0.9% 100 ML IVPB SCH (14:02)
[2018-08-18] MEDS: FLUCONAZOLE 100 MG TAB PO SCH (14:03)
[2018-08-19] VITALS (18 sets, daily range): BP systolic 86–114; BP diastolic 63–84; PULSE 79–86; RESP 18–37
[2018-08-19] MEDS: HYDROmorphONE 0.5 MG/0.5 ML SYG IV PRN ×6 (02:11→21:43)
[2018-08-19] MEDS: IPRATROPIUM (HFA) 12.9 GM INHALER INH SCH ×4 (02:22→19:56)
[2018-08-19] MEDS: ALBUTEROL HFA 8 GM INHALER INH SCH ×4 (02:22→19:56)
--- NOTE | 2018-08-19 09:58 | CONS ---
Assessment/Plan Assessment/Plan Assessment/Plan (Daily) 1. Acute kidney Injury on CKD III/IV due to prerenal azotemia + ATN from sepsis 2. Status post sepsis 3. 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 ventilator dependent respiratory failure with tracheostomy, dysphagia with G-tube, chronic kidney disease III and history of right nephrectomy and left re nal nephrolithiasis, bipolar disorder Plan: IV abx meropenem and vancomycin for sepsis, ID following BUNC/Cr 56/1.2, K 4.1; no new labs today -Hgb 7.9 on IV iron IV iron for severe iron deficiency Will follow up Patient seen in collaboration with Dr Paul Barker Consultation Date/Type/Reason Admit Date/Time Aug 15, 2018 at 02:30 Initial Consult Date 08/16/18 Type of Consult NEPHROLOGY Reason for Consultation BELINDA on CKD Requesting Provider: JOSÉ ANTONIO MIRZA MD Date/Time of Note DATE: 08/19/18 TIME: 09:58 24 HR Interval Summary Free Text/Dictation NAD Afebrile no labs today Patient seen in collaboration with Dr Paul Barker Subjective hx not possible: pt non-verbal Constitutional: requiring O2 Exam/Review of Systems Exam Vitals Vital Signs Date Temp Pulse Resp B/P (MAP) Pulse Ox O2 O2 Flow FiO2 Time Delivery Rate 08/19/18 98.7 83 23 106/81 93 07:57 (89) 08/19/18 40 05:06 08/19/18 Trach 04:00 Collar Intake and Output 08/18/18 08/18/18 08/19/18 1515:00 23:00 07:00 IntakeIntake Total 1320 ml 1320 ml 1320 ml OutputOutput Total 1400 ml 1500 ml BalanceBalance 1320 ml -80 ml -180 ml Constitutional: alert, non-verbal, frail Psych: nl mood/affect Eyes: nl lids, nl sclera ENMT: nl external ears & nose Neck: other (trach intact) Respiratory: diminished breath sounds Cardiovascular: nl pulses, other (s1s2) Gastrointestinal: soft, other ( intact) Musculoskeletal: muscle weakness Extremities: normal pulses Neurological: confused Skin: other (multiple decub ) Results Result Diagram: 08/17/18 0629 08/18/18 0701 Medications Medication Current Medications Acetaminophen/ Hydrocodone Bitart ([place] (5/325)) 1 tab Q4H PRN GTB PAIN LEVEL 7-10; Start 08/15/18 at 03:30 Diphenhydramine HCl (Benadryl) 25 mg HS PRN PO INSOMNIA; Start 08/15/18 at 03:30 Ondansetron HCl (Zofran Inj) 4 mg Q4H PRN IV NAUSEA AND/OR VOMITING; Start 08/15/18 at 03:30 Levetiracetam (Keppra Liquid) 500 mg BID GTB Last administered on 08/18/18 21:27; Admin Dose 500 MG; Start 08/15/18 at 09:00 Quetiapine Fumarate (Seroquel) 75 mg BID GTB Last administered on 08/18/18 21:27; Admin Dose 75 MG; Start 08/15/18 at 09:00 Polyethylene Glycol (Miralax) 17 gm DAILY GTB Last administered on 08/18/18 09:00; Admin Dose 17 GM; Start 08/15/18 at 09:00 Enoxaparin Sodium (Lovenox) 40 mg DAILY SC Last administered on 08/18/18 10:00; Admin Dose 40 MG; Start 08/15/18 at 09:00 Multivitamins/ Minerals (Theragran-M) 1 tab DAILY GTB Last administered on 08/18/18 09:40; Admin Dose 1 TAB; Start 08/15/18 at 09:00 Ascorbic Acid (Vitamin C) 250 mg DAILY GTB Last administered on 08/18/18 09:40; Admin Dose 250 MG; Start 08/15/18 at 09:00 Zinc Sulfate (Zinc Sulfate) 220 mg DAILY GTB Last administered on 08/18/18 09:40; Admin Dose 220 MG; Start 08/15/18 at 09:00 Gabapentin (Neurontin Liquid) 300 mg BID GTB Last administered on 08/18/18 21:27; Admin Dose 300 MG; Start 08/15/18 at 09:00 Ferric Sodium Gluconate Complex 125 mg/Sodium Chloride 110 ml @ 110 mls/hr DAILY@1300 IVPB Last administered on 08/18/18 14:02; Admin Dose 110 MLS/HR; Start 08/15/18 at 13:00; Stop 08/20/18 at 13:59 Acetaminophen (Tylenol Liquid) 650 mg Q6 PRN GTB MILD PAIN(1-3)OR ELEVATED TEMP; Start 08/15/18 at 03:30 Hydromorphone HCl (Dilaudid) 0.5 mg Q3H PRN IV SEVERE PAIN LEVEL 7-10 Last administered on 08/19/18 09:34; Admin Dose 0.5 MG; Start 08/15/18 at 03:30 Albuterol (Ventolin Hfa) 4 puff Q6H RESP THERAPY INH Last administered on 08/19/18 07:46; Admin Dose 4 PUFF; Start 08/15/18 at 08:00 Ipratropium [place] (Atrovent Hfa) 4 puff Q6H RESP THERAPY INH Last admi nistered on 08/19/18 07:46; Admin Dose 4 PUFF; Start 08/15/18 at 08:00 Sodium Hypochlorite (Dakins Diluted ()) 1 applic BID TP Last administered on 08/18/18 21:28; Admin Dose 1 APPLIC; Start 08/15/18 at 21:00 Famotidine (Pepcid) 20 mg DAILY GTB Last administered on 08/18/18 09:40; Admin Dose 20 MG; Start 08/16/18 at 09:00 Fluconazole (Diflucan) 100 mg DAILY PO Last administered on 08/18/18 14:03; Admin Dose 100 MG; Start 08/18/18 at 10:00 NAE VELAZCO Aug 19, 2018 09:58
--- NOTE | 2018-08-19 10:43 | PN ---
DATE: 08/19/2018 PULMONARY FOLLOWUP PROGRESS NOTE SUBJECTIVE: The patient is resting comfortably shows no signs of respiratory distress with a continu ous ventilator support. PHYSICAL EXAMINATION: VITAL SIGNS: Show temperature 98.7, blood pressure 106/81, pulse rate 83, respirations 23, pulse oxi metry 93% saturation. He is on 40% oxygen. According to nursing staff, the patient has been refusing medications sometimes. He demands pain medi cations on a constant basis at regular intervals. Tracheostomy shows no gross bleeding. Secretions are minimal to moderate. HEART: Regular sinus rhythm. CHEST: Breath sounds are diminished in both the lower lung tierney. Auscultation is difficult due to patient's noncooperation. ABDOMEN: Soft, tolerating G-tube feedings. No vomiting reported. EXTREMITIES: Show no edema. He is paraplegic. LABORATORY DATA: From yesterday, the lab tests from yesterday showed sodium 141, potassium 4.6, bica rbonate of 25, BUN 56, creatinine 1.23, glucose 85. Blood culture shows no growth. Blood and urine culture shows Kristina species. MEDICATIONS: His medications at this time include: 1. Diflucan. 2. Pepcid. 3. Ferrlecit 4. Keppra. 5. Seroquel. 6. MiraLax. 7. Lovenox for DVT prophylaxis. 8. Multivitamin with mineral supplements. 9. Vitamin C. 10. Zinc sulfate. 11. Neurontin. 12. Albuterol. 13. Atrovent inhalation. 14. Tylenol with hydrocodone. 15. Benadryl as needed. 16. Zofran as needed. 17. Dilaudid as needed for severe pain. IMPRESSION: 1. Chronic ventilator dependent respiratory failure. 2. Resolving sepsis. 3. Resolving pneumonia. 4. Urinary tract infection with Kristina. 5. Chronic kidney disease, gradually improving. 6. Chronic anemia. 7. History of nephrolithiasis. 8. Status post left nephrectomy. 9. Paraplegia secondary to previous spinal cord injury. 10. History of bipolar disorder. PLAN 1. Continue long-term ventilator support. He has failed weaning trials several times in the past an d he would not succeed in staying off the ventilator. 2. Complete the antibiotics as directed by the infectious disease systems development consultant. 3. Continue bronchodilator inhalation therapy to clear the secretions and maintain pulmonary hygiene . 4. Continue tube feedings. 5. Continue deep venous thrombosis prophylaxis. Overall, his pulmonary status remains stable. Dictated By: HUMBERTO PEREZ MD SR/NTS Conf#: [id number] DID#: [id number] CC: JOSÉ ANTONIO MIRZA MD;*EndCC*
--- NOTE | 2018-08-19 10:50 | PN ---
Date/Time of Note Date/Time of Note DATE: 08/19/18 TIME: 10:50 Assessment/Plan VTE Prophylaxis Risk score (from Nsg)>0 risk: 5 SCD applied (from Nsg): Yes Pharmacological prophylaxis: LMWH Lines/Catheters IV Catheter Type (from Nrsg): PICC Line Central line still needed: Yes Assessment/Plan Hospital Course - Resolving sepsis secondary to pneumonia, continue antibiotics per ID recomme ndations. - Large tracheal opening, s/p evaluation by Dr Woodruff in ENT consultation with recommendation for free flap closure. Patient was evaluated at [facility] [place] school [facility] medicine refused to have surgery, not cooperative with care. - Ventilator dependent respiratory failure, continue pulmonary toilet and bronchodilators. Dr Ames is following in pulmonology consultation. - Acute on chronic renal failure. Continue to monitor BUN and creatinine. - Anemia of chronic disease. Continue Epogen. - Neurogenic bladder with suprapubic catheter. - Dysphagia with gastrostomy tube. - Seizures, continue Keppra - Multiple decubitus ulcers present on admission. - Cervical spine injury with paraplegia. - Bipolar disorder with psychosis. - Hx of right nephrectomy - Hx of left renal nephrolithiasis, hx of lithotripsy with insertion and subsequent removal of ureteral JJ stent. Result Diagram: 08/17/18 0629 08/18/18 0701 Subjective 24 Hr Interval Summary Free Text/Dictation Patient complains of pain Exam/Review of Systems Exam Vitals Vital Signs Date Temp Pulse Resp B/P (MAP) Pulse Ox O2 O2 Flow FiO2 Time Delivery Rate 08/19/18 98.7 83 23 106/81 93 07:57 (89) 08/19/18 40 05:06 08/19/18 Trach 04:00 Collar Intake and Output 08/18/18 08/18/18 08/19/18 1515:00 23:00 07:00 IntakeIntake Total 1320 ml 1320 ml 1320 ml OutputOutput Total 1400 ml 1500 ml BalanceBalance 1320 ml -80 ml -180 ml Constitutional: well developed Head: normocephalic, atraumatic Neck: supple Respiratory: diminished breath sounds Cardiovascular: regular rate and rhythm Gastrointestinal: soft, non-tender Extremities: normal pulses Medications Medication Current Medications Acetaminophen/ Hydrocodone Bitart ([place] (5/325)) 1 tab Q4H PRN GTB PAIN LEVEL 7-10; Start 08/15/18 at 03:30 Diphenhydramine HCl (Benadryl) 25 mg HS PRN PO INSOMNIA; Start 08/15/18 at 03:30 Ondansetron HCl (Zofran Inj) 4 mg Q4H PRN IV NAUSEA AND/OR VOMITING; Start 08/15/18 at 03:30 Levetiracetam (Keppra Liquid) 500 mg BID GTB Last administered on 08/18/18 21:27; Admin Dose 500 MG; Start 08/15/18 at 09:00 Quetiapine Fumarate (Seroquel) 75 mg BID GTB Last administered on 08/18/18 21:27; Admin Dose 75 MG; Start 08/15/18 at 09:00 Polyethylene Glycol (Miralax) 17 gm DAILY GTB Last administered on 08/18/18 09:00; Admin Dose 17 GM; Start 08/15/18 at 09:00 Enoxaparin Sodium (Lovenox) 40 mg DAILY SC Last administered on 08/18/18 10:00; Admin Dose 40 MG; Start 08/15/18 at 09:00 Multivitamins/ Minerals (Theragran-M) 1 tab DAILY GTB Last administered on 08/18/18 09:40; Admin Dose 1 TAB; Start 08/15/18 at 09:00 Ascorbic Acid (Vitamin C) 250 mg DAILY GTB Last administered on 08/18/18 09:40; Admin Dose 250 MG; Start 08/15/18 at 09:00 Zinc Sulfate (Zinc Sulfate) 220 mg DAILY GTB Last administered on 08/18/18 09:40; Admin Dose 220 MG; Start 08/15/18 at 09:00 Gabapentin (Neurontin Liquid) 300 mg BID GTB Last administered on 08/18/18 21:27; Admin Dose 300 MG; Start 08/15/18 at 09:00 Ferric Sodium Gluconate Complex 125 mg/Sodium Chloride 110 ml @ 110 mls/hr DAILY@1300 IVPB Last administered on 08/18/18 14:02; Admin Dose 110 MLS/HR; Start 08/15/18 at 13:00; Stop 08/20/18 at 13:59 Acetaminophen (Tylenol Liquid) 650 mg Q6 PRN GTB MILD PAIN(1-3)OR ELEVATED TEMP; Start 08/15/18 at 03:30 Hydromorphone HCl (Dilaudid) 0.5 mg Q3H PRN IV SEVERE PAIN LEVEL 7-10 Last administered on 08/19/18 09:34; Admin Dose 0.5 MG; Start 08/15/18 at 03:30 Albuterol (Ventolin Hfa) 4 puff Q6H RESP THERAPY INH Last administered on 08/19/18 07:46; Admin Dose 4 PUFF; Start 08/15/18 at 08:00 Ipratropium [place] (Atrovent Hfa) 4 puff Q6H RESP THERAPY INH Last admini stered on 08/19/18 07:46; Admin Dose 4 PUFF; Start 08/15/18 at 08:00 Sodium Hypochlorite (Dakins Diluted ()) 1 applic BID TP Last administered on 08/18/18 21:28; Admin Dose 1 APPLIC; Start 08/15/18 at 21:00 Famotidine (Pepcid) 20 mg DAILY GTB Last administered on 08/18/18 09:40; Admin Dose 20 MG; Start 08/16/18 at 09:00 Fluconazole (Diflucan) 100 mg DAILY PO Last administered on 08/18/18 14:03; Admin Dose 100 MG; Start 08/18/18 at 10:00 DANAY MUIR Y Aug 19, 2018 10:50
[2018-08-19] MEDS: FAMOTIDINE 20 MG TAB GTB SCH (10:57)
[2018-08-19] MEDS: GABAPENTIN (50 MG/ML PO SYG) GTB SCH ×2 (10:57→21:00)
[2018-08-19] MEDS: QUETIAPINE 25 MG TAB GTB SCH ×2 (10:57→21:43)
[2018-08-19] MEDS: ZINC SULFATE 220 MG CAP GTB SCH (10:57)
[2018-08-19] MEDS: MULTIVITAMINS/MINERALS TAB GTB SCH (10:57)
[2018-08-19] MEDS: ASCORBIC ACID 250 MG TAB GTB SCH (10:57)
[2018-08-19] MEDS: POLYETHYLENE GLYCOL 17 GM PACKET GTB SCH (10:57)
[2018-08-19] MEDS: LEVETIRACETAM (100 MG/ML) 5ML CUP GTB SCH ×2 (10:57→21:42)
[2018-08-19] MEDS: FLUCONAZOLE 100 MG TAB PO SCH (10:57)
[2018-08-19] MEDS: BALSAM PERU/CASTOR OIL 60 GM TUBE TOP SCH ×2 (10:58→21:43)
[2018-08-19] MEDS: DAKINS 0.0125%(1/40) 473 ML SOLUTION TP SCH ×2 (10:58→21:43)
[2018-08-19] MEDS: ENOXAPARIN 40 MG/0.4 ML SYG SC SCH (11:01)
--- NOTE | 2018-08-19 13:39 | CONS ---
Consultation Date/Type/Reason Admit Date/Time Aug 15, 2018 at 02:30 Initial Consult Date SUBJECTIVE: Pt is sleeping. trach to Vent, afebrile. No acute events overnight VS: stable. T: 98.5 LABS: Reviewed. Allergies: Tetracyclines MICROBIOLOGY: Blood cultures negative. URINE CULTURE Final Organism 1 ALONA SPECIES, NOT ALBICANS COLONY COUNT >100,000 CFU/ml Antimicrobials: Diflucan Indwelling: Trach, PEG, PICC line, suprapubic catheter Physical examination: GEN: Chronically ill-appearing wasted middle-aged man who is awake in no distress. HENT: Head atraumatic normocephalic sclera nonicteric vehicle mucosa dry; neck is supple tracheostomy present PULM: chest rise symmetrical breath sounds diminished the bases. Heart: S1-S2. Abdomen: soft, bowel sounds present. Extremities wasted contractured Assessment: 1. Status post sepsis 2. Recurrent UTI==> yeast, poss colonized 3. Cronic respiratory failure 4. Acute on chronic kidney disease 5. Incomplete quadriplegia 6. Pancytopenia 7. History of left breast nephrectomy 8. Multiple chronic decubitus ulcers 10. History of MRSA colonization Plan: Patient is stable. Continue with Diflucan and current care. Requesting Provider: JOSÉ ANTONIO MIRZA MD Date/Time of Note DATE: 08/19/18 TIME: 13:36 Exam/Review of Systems Exam Vitals Vital Signs Date Temp Pulse Resp B/P (MAP) Pulse Ox O2 O2 Flow FiO2 Time Delivery Rate 08/19/18 98.5 80 18 114/84 91 11:44 (94) 08/19/18 40 05:06 08/19/18 Trach 04:00 Collar Intake and Output 08/18/18 08/18/18 08/19/18 1414:59 22:59 06:59 IntakeIntake Total 1320 ml 1320 ml 1320 ml OutputOutput Total 1400 ml 1500 ml BalanceBalance 1320 ml -80 ml -180 ml Results Result Diagram: 08/17/18 0629 08/18/18 0701 Medications Medication Current Medications Acetaminophen/ Hydrocodone Bitart ([place] (5/325)) 1 tab Q4H PRN GTB PAIN LEVEL 7-10; Start 08/15/18 at 03:30 Diphenhydramine HCl (Benadryl) 25 mg HS PRN PO INSOMNIA; Start 08/15/18 at 03:30 Ondansetron HCl (Zofran Inj) 4 mg Q4H PRN IV NAUSEA AND/OR VOMITING; Start 08/15/18 at 03:30 Levetiracetam (Keppra Liquid) 500 mg BID GTB Last administered on 08/19/18 10:57; Admin Dose 500 MG; Start 08/15/18 at 09:00 Quetiapine Fumarate (Seroquel) 75 mg BID GTB Last administered on 08/19/18 10:57; Admin Dose 75 MG; Start 08/15/18 at 09:00 Polyethylene Glycol (Miralax) 17 gm DAILY GTB Last administered on 08/19/18 10:57; Admin Dose 17 GM; Start 08/15/18 at 09:00 Enoxaparin Sodium (Lovenox) 40 mg DAILY SC Last administered on 08/19/18 11:01; Admin Dose 40 MG; Start 08/15/18 at 09:00 Multivitamins/ Minerals (Theragran-M) 1 tab DAILY GTB Last administered on 08/19/18 10:57; Admin Dose 1 TAB; Start 08/15/18 at 09:00 Ascorbic Acid (Vitamin C) 250 mg DAILY GTB Last administered on 08/19/18 10:57; Admin Dose 250 MG; Start 08/15/18 at 09:00 Zinc Sulfate (Zinc Sulfate) 220 mg DAILY GTB Last administered on 08/19/18 10:57; Admin Dose 220 MG; Start 08/15/18 at 09:00 Gabapentin (Neurontin Liquid) 300 mg BID GTB Last administered on 08/19/18 10:57; Admin Dose 300 MG; Start 08/15/18 at 09:00 Ferric Sodium Gluconate Complex 125 mg/Sodium Chloride 110 ml @ 110 mls/hr DA KEARA@1300 IVPB Last administered on 08/18/18 14:02; Admin Dose 110 MLS/HR; Start 08/15/18 at 13:00; Stop 08/20/18 at 13:59 Acetaminophen (Tylenol Liquid) 650 mg Q6 PRN GTB MILD PAIN(1-3)OR ELEVATED TEMP; Start 08/15/18 at 03:30 Hydromorphone HCl (Dilaudid) 0.5 mg Q3H PRN IV SEVERE PAIN LEVEL 7-10 Last administered on 08/19/18 09:34; Admin Dose 0.5 MG; Start 08/15/18 at 03:30 Albuterol (Ventolin Hfa) 4 puff Q6H RESP THERAPY INH Last administered on 08/19/18 07:46; Admin Dose 4 PUFF; Start 08/15/18 at 08:00 Ipratropium [place] (Atrovent Hfa) 4 puff Q6H RESP THERAPY INH Last administered on 08/19/18 07:46; Admin Dose 4 PUFF; Start 08/15/18 at 08:00 Sodium Hypochlorite (Dakins Diluted ()) 1 applic BID TP Last administered on 08/19/18 10:58; Admin Dose 1 APPLIC; Start 08/15/18 at 21:00 Famotidine (Pepcid) 20 mg DAILY GTB Last administered on 08/19/18 10:57; Admin Dose 20 MG; Start 08/16/18 at 09:00 Fluconazole (Diflucan) 100 mg DAILY PO Last administered on 08/19/18 10:57; Admin Dose 100 MG; Start 08/18/18 at 10:00 ADELAIDA PEREZ Aug 19, 2018 13:39
[2018-08-19] MEDS: SOD FERRIC GLUC COMPLX 125 MG in SOD CHLORIDE 0.9% 100 ML IVPB SCH (13:54)
[2018-08-20] VITALS (18 sets, daily range): BP systolic 92–137; BP diastolic 60–95; PULSE 81–112; RESP 16–30
[2018-08-20] MEDS: HYDROmorphONE 0.5 MG/0.5 ML SYG IV PRN ×6 (00:57→23:28)
[2018-08-20] MEDS: ALBUTEROL HFA 8 GM INHALER INH SCH ×4 (02:58→19:20)
[2018-08-20] MEDS: IPRATROPIUM (HFA) 12.9 GM INHALER INH SCH ×4 (02:58→19:20)
[2018-08-20] MEDS: POLYETHYLENE GLYCOL 17 GM PACKET GTB SCH (09:00)
[2018-08-20] MEDS: QUETIAPINE 25 MG TAB GTB SCH ×2 (09:01→20:55)
[2018-08-20] MEDS: LEVETIRACETAM (100 MG/ML) 5ML CUP GTB SCH ×2 (09:01→20:55)
[2018-08-20] MEDS: GABAPENTIN (50 MG/ML PO SYG) GTB SCH ×2 (09:01→21:00)
[2018-08-20] MEDS: ZINC SULFATE 220 MG CAP GTB SCH (09:01)
[2018-08-20] MEDS: FAMOTIDINE 20 MG TAB GTB SCH (09:02)
[2018-08-20] MEDS: MULTIVITAMINS/MINERALS TAB GTB SCH (09:02)
[2018-08-20] MEDS: FLUCONAZOLE 100 MG TAB PO SCH (09:02)
[2018-08-20] MEDS: ASCORBIC ACID 250 MG TAB GTB SCH (09:02)
[2018-08-20] MEDS: DAKINS 0.0125%(1/40) 473 ML SOLUTION TP SCH ×2 (09:03→20:56)
[2018-08-20] MEDS: BALSAM PERU/CASTOR OIL 60 GM TUBE TOP SCH ×2 (09:03→20:55)
[2018-08-20] MEDS: ENOXAPARIN 40 MG/0.4 ML SYG SC SCH (09:11)
[2018-08-20] MEDS ORDERED: NA POLYST SULFON 15 GM/60 ML BTL GTB ONE (10:00)
--- NOTE | 2018-08-20 11:50 | CONS ---
Assessment/Plan Assessment/Plan Assessment/Plan (Daily) 1. Acute kidney Injury on CKD III/IV due to prerenal azotemia + ATN from sepsis 2. Status post sepsis 3. 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 ventilator dependent respiratory failure with tracheostomy, dysphagia with G-tube, chronic kidney disease III and history of right nephrectomy and left re nal nephrolithiasis, bipolar disorder Plan: IV abx meropenem and vancomycin for sepsis, ID following BUNC/Cr 51/1.1, K 5.5- kayexalate 15 gram PO x 1 dose now Will follow up Consultation Date/Type/Reason Admit Date/Time Aug 15, 2018 at 02:30 Initial Consult Date 08/16/18 Type of Consult NEPHROLOGY Requesting Provider: JOSÉ ANTONIO MIRZA MD Date/Time of Note DATE: 08/20/18 TIME: 11:50 Exam/Review of Systems Exam Vitals Vital Signs Date Temp Pulse Resp B/P (MAP) Pulse Ox O2 O2 Flow FiO2 Time Delivery Rate 08/20/18 83 25 96 35 11:12 08/20/18 97.4 110/79 08:21 (89) 08/20/18 Trach 04:40 Collar Intake and Output 08/19/18 08/19/18 08/20/18 1515:00 23:00 07:00 IntakeIntake Total 1320 ml 1020 ml OutputOutput Total 1300 ml BalanceBalance 20 ml 1020 ml Results Result Diagram: 08/20/18 0729 08/20/18 0729 Results 24hrs Laboratory Tests Test 08/19/18 18:45 08/20/18 07:29 Sodium Level 141 139 Potassium Level 5.7 H 5.6 H Chloride Level 111 H 109 Carbon Dioxide Level 25 27 Anion Gap 5 3 L Blood Urea Nitrogen 50 H 51 H Creatinine 1.07 1.10 Est Glomerular Filtrat Rate mL/min > 60 > 60 Glucose Level 88 89 Calcium Level 8.6 8.5 White Blood Count 3.7 L Red Blood Count 2.68 L Hemoglobin 7.5 L Hematocrit 26.0 L Mean Corpuscular Volume 97.0 Mean Corpuscular Hemoglobin 28.0 L Mean Corpuscular Hemoglobin Concent 28.8 L Red Cell Distribution Width 17.2 H Platelet Count 149 Mean Platelet Volume 13.5 H Immature Granulocytes % 0.300 Neutrophils % 68.1 Lymphocytes % 14.0 L Monocytes % 6.5 Eosinophils % 10.8 H Basophils % 0.3 Nucleated Red Blood Cells % 0.0 Immature Granulocytes # 0.010 Neutrophils # 2.5 Lymphocytes # 0.5 L Monocytes # 0.2 L Eosinophils # 0.4 Basophils # 0.0 Nucleated Red Blood Cells # 0.0 Medications Medication Current Medications Acetaminophen/ Hydrocodone Bitart ([place] (5/325)) 1 tab Q4H PRN GTB PAIN LEVEL 7-10; Start 08/15/18 at 03:30 Diphenhydramine HCl (Benadryl) 25 mg HS PRN PO INSOMNIA; Start 08/15/18 at 03:30 Ondansetron HCl (Zofran Inj) 4 mg Q4H PRN IV NAUSEA AND/OR VOMITING; Start 08/15/18 at 03:30 Levetiracetam (Keppra Liquid) 500 mg BID GTB Last administered on 08/20/18 09:01; Admin Dose 500 MG; Start 08/15/18 at 09:00 Quetiapine Fumarate (Seroquel) 75 mg BID GTB Last administered on 08/20/18 09:01; Admin Dose 75 MG; Start 08/15/18 at 09:00 Polyethylene Glycol (Miralax) 17 gm DAILY GTB Last administered on 08/20/18 09:00; Admin Dose 17 GM; Start 08/15/18 at 09:00 Enoxaparin Sodium (Lovenox) 40 mg DAILY SC Last administered on 08/20/18 09:11; Admin Dose 40 MG; Start 08/15/18 at 09:00 Multivitamins/ Minerals (Theragran-M) 1 tab DAILY GTB Last administered on 08/20/18 09:02; Admin Dose 1 TAB; Start 08/15/18 at 09:00 Ascorbic Acid (Vitamin C) 250 mg DAILY GTB Last administered on 08/20/18 09:02; Admin Dose 250 MG; Start 08/15/18 at 09:00 Zinc Sulfate (Zinc Sulfate) 220 mg DAILY GTB Last administered on 08/20/18 09 :01; Admin Dose 220 MG; Start 08/15/18 at 09:00 Gabapentin (Neurontin Liquid) 300 mg BID GTB Last administered on 08/20/18 09:01; Admin Dose 300 MG; Start 08/15/18 at 09:00 Ferric Sodium Gluconate Complex 125 mg/Sodium Chloride 110 ml @ 110 mls/hr DAILY@1300 IVPB Last administered on 08/19/18 13:54; Admin Dose 110 MLS/HR; Start 08/15/18 at 13:00; Stop 08/20/18 at 13:59 Acetaminophen (Tylenol Liquid) 650 mg Q6 PRN GTB MILD PAIN(1-3)OR ELEVATED TEMP; Start 08/15/18 at 03:30 Hydromorphone HCl (Dilaudid) 0.5 mg Q3H PRN IV SEVERE PAIN LEVEL 7-10 Last administered on 08/20/18 08:58; Admin Dose 0.5 MG; Start 08/15/18 at 03:30 Albuterol (Ventolin Hfa) 4 puff Q6H RESP THERAPY INH Last administered on 08/20/18 08:10; Admin Dose 4 PUFF; Start 08/15/18 at 08:00 Ipratropium [place] (Atrovent Hfa) 4 puff Q6H RESP THERAPY INH Last administered on 08/20/18 08:10; Admin Dose 4 PUFF; Start 08/15/18 at 08:00 Sodium Hypochlorite (Dakins Diluted (1/40)) 1 applic BID TP Last administered on 08/20/18 09:03; Admin Dose 1 APPLIC; Start 08/15/18 at 21:00 Famotidine (Pepcid) 20 mg DAILY GTB Last administered on 08/20/18 09:02; Admin Dose 20 MG; Start 08/16/18 at 09:00 Fluconazole (Diflucan) 100 mg DAILY PO Last administered on 08/20/18 09:02; Admin Dose 100 MG; Start 08/18/18 at 10:00 TIARA CISNEROS MD Aug 20, 2018 11:50
--- NOTE | 2018-08-20 11:54 | CONS ---
Assessment/Plan Assessment/Plan Hospital Course (Demo Recall) No acute events overnight, looks comfortable, no fevers Allergies: Tetracyclines Antimicrobials: none Indwelling: Trach, PEG, PICC line, suprapubic catheter Physical examination: Chronically ill-appearing wasted middle-aged man who is awake in no distress. Head atraumatic normocephalic sclera nonicteric vehicle mucosa dry neck is supple tracheostomy present chest rise symmetrical breath sounds diminished the bases. Heart: S1-S2. Abdomen soft bowel sounds present. Extremities wasted contractured Assessment: 1. Status post sepsis 2. Recurrent UTI==> yeast, poss colonized 3. Cronic respiratory failure 4. Acute on chronic kidney disease 5. Incomplete quadriplegia 6. Pancytopenia 7. History of left breast nephrectomy 8. Multiple chronic decubitus ulcers 10. History of MRSA colonization Plan: Patient is stable, change Diflucan to Vfend Consultation Date/Type/Reason Admit Date/Time Aug 15, 2018 at 02:30 Initial Consult Date 08/16/18 Type of Consult id Requesting Provider: JOSÉ ANTONIO MIRZA MD Date/Time of Note DATE: 08/20/18 TIME: 11:53 Exam/Review of Systems Exam Vitals Vital Signs Date Temp Pulse Resp B/P (MAP) Pulse Ox O2 O2 Flow FiO2 Time Delivery Rate 08/20/18 83 25 96 35 11:12 08/20/18 97.4 110/79 08:21 (89) 08/20/18 Trach 04:40 Collar Intake and Output 08/19/18 08/19/18 08/20/18 1515:00 23:00 07:00 IntakeIntake Total 1320 ml 1020 ml OutputOutput Total 1300 ml BalanceBalance 20 ml 1020 ml Results Result Diagram: 08/20/18 0729 08/20/18 0729 Results 24hrs Laboratory Tests Test 08/19/18 18:45 08/20/18 07:29 Sodium Level 141 139 Potassium Level 5.7 H 5.6 H Chloride Level 111 H 109 Carbon Dioxide Level 25 27 Anion Gap 5 3 L Blood Urea Nitrogen 50 H 51 H Creatinine 1.07 1.10 Est Glomerular Filtrat Rate mL/min > 60 > 60 Glucose Level 88 89 Calcium Level 8.6 8.5 White Blood Count 3.7 L Red Blood Count 2.68 L Hemoglobin 7.5 L Hematocrit 26.0 L Mean Corpuscular Volume 97.0 Mean Corpuscular Hemoglobin 28.0 L Mean Corpuscular Hemoglobin Concent 28.8 L Red Cell Distribution Width 17.2 H Platelet Count 149 Mean Platelet Volume 13.5 H Immature Granulocytes % 0.300 Neutrophils % 68.1 Lymphocytes % 14.0 L Monocytes % 6.5 Eosinophils % 10.8 H Basophils % 0.3 Nucleated Red Blood Cells % 0.0 Immature Granulocytes # 0.010 Neutrophils # 2.5 Lymphocytes # 0.5 L Monocytes # 0.2 L Eosinophils # 0.4 Basophils # 0.0 Nucleated Red Blood Cells # 0.0 Medications Medication Current Medications Acetaminophen/ Hydrocodone Bitart ([place] (5/325)) 1 tab Q4H PRN GTB PAIN LEVEL 7-10; Start 08/15/18 at 03:30 Diphenhydramine HCl (Benadryl) 25 mg HS PRN PO INSOMNIA; Start 08/15/18 at 03:30 Ondansetron HCl (Zofran Inj) 4 mg Q4H PRN IV NAUSEA AND/OR VOMITING; Start 08/15/18 at 03:30 Levetiracetam (Keppra Liquid) 500 mg BID GTB Last administered on 08/20/18at 09:01; Admin Dose 500 MG; Start 08/15/18 at 09:00 Quetiapine Fumarate (Seroquel) 75 mg BID GTB Last administered on 08/20/18at 09:01; Admin Dose 75 MG; Start 08/15/18 at 09:00 Polyethylene Glycol (Miralax) 17 gm DAILY GTB Last administered on 08/20/18at 09:00; Admin Dose 17 GM; Start 08/15/18 at 09:00 Enoxaparin Sodium (Lovenox) 40 mg DAILY SC Last administered on 08/20/18 09:1 1; Admin Dose 40 MG; Start 08/15/18 at 09:00 Multivitamins/ Minerals (Theragran-M) 1 tab DAILY GTB Last administered on 08/20/18 09:02; Admin Dose 1 TAB; Start 08/15/18 at 09:00 Ascorbic Acid (Vitamin C) 250 mg DAILY GTB Last administered on 08/20/18 09:02; Admin Dose 250 MG; Start 08/15/18 at 09:00 Zinc Sulfate (Zinc Sulfate) 220 mg DAILY GTB Last administered on 08/20/18 09:01; Admin Dose 220 MG; Start 08/15/18 at 09:00 Gabapentin (Neurontin Liquid) 300 mg BID GTB Last administered on 08/20/18 09:01; Admin Dose 300 MG; Start 08/15/18 at 09:00 Ferric Sodium Gluconate Complex 125 mg/Sodium Chloride 110 ml @ 110 mls/hr DAILY@1300 IVPB Last administered on 08/19/18 13:54; Admin Dose 110 MLS/HR; Start 08/15/18 at 13:00; Stop 08/20/18 at 13:59 Acetaminophen (Tylenol Liquid) 650 mg Q6 PRN GTB MILD PAIN(1-3)OR ELEVATED TEMP; Start 08/15/18 at 03:30 Hydromorphone HCl (Dilaudid) 0.5 mg Q3H PRN IV SEVERE PAIN LEVEL 7-10 Last administered on 08/20/18 08:58; Admin Dose 0.5 MG; Start 08/15/18 at 03:30 Albuterol (Ventolin Hfa) 4 puff Q6H RESP THERAPY INH Last administered on 08/20/18 08:10; Admin Dose 4 PUFF; Start 08/15/18 at 08:00 Ipratropium [place] (Atrovent Hfa) 4 puff Q6H RESP THERAPY INH Last administered on 08/20/18 08:10; Admin Dose 4 PUFF; Start 08/15/18 at 08:00 Sodium Hypochlorite (Dakins Diluted (140)) 1 applic BID TP Last administered on 08/20/18 09:03; Admin Dose 1 APPLIC; Start 08/15/18 at 21:00 Famotidine (Pepcid) 20 mg DAILY GTB Last administered on 08/20/18 09:02; Admin Dose 20 MG; Start 08/16/18 at 09:00 Fluconazole (Diflucan) 100 mg DAILY PO Last administered on 08/20/18 09:02; Admin Dose 100 MG; Start 08/18/18 at 10:00 REGINALDO CHERY NP Aug 20, 2018 11:54
[2018-08-20] MEDS: SOD FERRIC GLUC COMPLX 125 MG in SOD CHLORIDE 0.9% 100 ML IVPB SCH (12:16)
[2018-08-20] MEDS: VORICONAZOLE 200 MG TAB PO SCH (14:53)
--- NOTE | 2018-08-20 17:38 | PN ---
Date/Time of Note Date/Time of Note DATE: 08/20/18 TIME: 17:37 Assessment/Plan VTE Prophylaxis Risk score (from Nsg)>0 risk: 8 SCD applied (from Nsg): Yes Pharmacological prophylaxis: LMWH Lines/Catheters IV Catheter Type (from Nrsg): PICC Line Central line still needed: Yes Urinary Cath still in place: Yes Reason Cath still needed: urinary retention Assessment/Plan Hospital Course Patient status post treatment for hyperkalemia with Kayexalate for potassium of 5.6. Patient is continues on vent without distress. Gutierrez evaluation. Assessment/Plan - Resolving sepsis secondary to pneumonia, continue antibiotics per ID recommendations. - Large tracheal opening, s/p evaluation by Dr Woodruff in ENT consultation with recommendation for free flap closure. Patient was evaluated at [facility] – [place] [place] [facility] refused to have surgery, not cooperative with care. - Ventilator dependent respiratory failure, continue pulmonary toilet and bronchodilators. Dr Ames is following in pulmonology consultation. - Acute on chronic renal failure. Continue to monitor BUN and creatinine. - Anemia of chronic disease. Continue Epogen. - Neurogenic bladder with suprapubic catheter. - Dysphagia with gastrostomy tube. - Seizures, continue Keppra - Multiple decubitus ulcers present on admission. - Cervical spine injury with paraplegia. - Bipolar disorder with psychosis. - Hx of right nephrectomy - Hx of left renal nephrolithiasis, hx of lithotripsy with insertion and subsequent removal of ureteral JJ stent. Further recommendations based on clinical course. Plan of care discussed with Dr. Barreto. Result Diagram: 08/20/18 0729 08/20/18 0729 Results 24hrs Laboratory Tests Test 08/19/18 18:45 08/20/18 07:29 Sodium Level 141 139 Potassium Level 5.7 H 5.6 H Chloride Level 111 H 109 Carbon Dioxide Level 25 27 Anion Gap 5 3 L Blood Urea Nitrogen 50 H 51 H Creatinine 1.07 1.10 Est Glomerular Filtrat Rate mL/min > 60 > 60 Glucose Level 88 89 Calcium Level 8.6 8.5 White Blood Count 3.7 L Red Blood Count 2.68 L Hemoglobin 7.5 L Hematocrit 26.0 L Mean Corpuscular Volume 97.0 Mean Corpuscular Hemoglobin 28.0 L Mean Corpuscular Hemoglobin Concent 28.8 L Red Cell Distribution Width 17.2 H Platelet Count 149 Mean Platelet Volume 13.5 H Immature Granulocytes % 0.300 Neutrophils % 68.1 Lymphocytes % 14.0 L Monocytes % 6.5 Eosinophils % 10.8 H Basophils % 0.3 Nucleated Red Blood Cells % 0.0 Immature Granulocytes # 0.010 Neutrophils # 2.5 Lymphocytes # 0.5 L Monocytes # 0.2 L Eosinophils # 0.4 Basophils # 0.0 Nucleated Red Blood Cells # 0.0 Exam/Review of Systems Exam Vitals Vital Signs Date Temp Pulse Resp B/P (MAP) Pulse Ox O2 O2 Flow FiO2 Time Delivery Rate 08/20/18 83 21 97 35 17:18 08/20/18 101/73 15:11 (82) 08/20/18 97.8 11:59 08/20/18 Trach 04:40 Collar Intake and Output 08/19/18 08/19/18 08/20/18 1515:00 23:00 07:00 IntakeIntake Total 1320 ml 1020 ml OutputOutput Total 1300 ml BalanceBalance 20 ml 1020 ml Exam Constitutional: alert, oriented Head: normocephalic Neck: supple, other (Tracheostomy) Respiratory: diminished breath sounds, other (Scattered rhonchi) Cardiovascular: regular rate and rhythm Gastrointestinal: soft, non-tender, other (G-tube) Genitourinary - Male: other (Suprapubic catheter) Musculoskeletal: other (Contracted ) Extremities: normal pulses Neurological: confused Skin: other (Multiple wounds) Results Results 24hrs Laboratory Tests Test 08/19/18 18:45 08/20/18 07:29 Sodium Level 141 139 Potassium Level 5.7 H 5.6 H Chloride Level 111 H 109 Carbon Dioxide Level 25 27 Anion Gap 5 3 L Blood Urea Nitrogen 50 H 51 H Creatinine 1.07 1.10 Est Glomerular Filtrat Rate mL/min > 60 > 60 Glucose Level 88 89 Calcium Level 8.6 8.5 White Blood Count 3.7 L Red Blood Count 2.68 L Hemoglobin 7.5 L Hematocrit 26.0 L Mean Corpuscular Volume 97.0 Mean Corpuscular Hemoglobin 28.0 L Mean Corpuscular Hemoglobin Concent 28.8 L Red Cell Distribution Width 17.2 H Platelet Count 149 Mean Platelet Volume 13.5 H Immature Granulocytes % 0.300 Neutrophils % 68.1 Lymphocytes % 14.0 L Monocytes % 6.5 Eosinophils % 10.8 H Basophils % 0.3 Nucleated Red Blood Cells % 0.0 Immature Granulocytes # 0.010 Neutrophils # 2.5 Lymphocytes # 0.5 L Monocytes # 0.2 L Eosinophils # 0.4 Basophils # 0.0 Nucleated Red Blood Cells # 0.0 Medications Medication Current Medications Acetaminophen/ Hydrocodone Bitart ([place] (5/325)) 1 tab Q4H PRN GTB PAIN LEVEL 7-10; Start 08/15/18 at 03:30 Diphenhydramine HCl (Benadryl) 25 mg HS PRN PO INSOMNIA; Start 08/15/18 at 03:30 Ondansetron HCl (Zofran Inj) 4 mg Q4H PRN IV NAUSEA AND/OR VOMITING; Start 08/15/18 at 03:30 Levetiracetam (Keppra Liquid) 500 mg BID GTB Last administered on 08/20/18 09:01; Admin Dose 500 MG; Start 08/15/18 at 09:00 Quetiapine Fumarate (Seroquel) 75 mg BID GTB Last administered on 08/20/18 09:01; Admin Dose 75 MG; Start 08/15/18 at 09:00 Polyethylene Glycol (Miralax) 17 gm DAILY GTB Last administered on 08/20/18 09:00; Admin Dose 17 GM; Start 08/15/18 at 09:00 Enoxaparin Sodium (Lovenox) 40 mg DAILY SC Last administered on 08/20/18 09:11; Admin Dose 40 MG; Start 08/15/18 at 09:00 Multivitamins/ Minerals (Theragran-M) 1 tab DAILY GTB Last administered on 09:02; Admin Dose 1 TAB; Start 08/15/18 at 09:00 Ascorbic Acid (Vitamin C) 250 mg DAILY GTB Last administered on 08/20/18 09:02; Admin Dose 250 MG; Start 08/15/18 at 09:00 Zinc Sulfate (Zinc Sulfate) 220 mg DAILY GTB Last administered on 08/20/18 09:01; Admin Dose 220 MG; Start 08/15/18 at 09:00 Gabapentin (Neurontin Liquid) 300 mg BID GTB Last administered on 08/20/18 09:01; Admin Dose 300 MG; Start 08/15/18 at 09:00 Acetaminophen (Tylenol Liquid) 650 mg Q6 PRN GTB MILD PAIN(1-3)OR ELEVATED TEMP; Start 08/15/18 at 03:30 Hydromorphone HCl (Dilaudid) 0.5 mg Q3H PRN IV SEVERE PAIN LEVEL 7-10 Last administered on 08/20/18 16:10; Admin Dose 0.5 MG; Start 08/15/18 at 03:30 Albuterol (Ventolin Hfa) 4 puff Q6H RESP THERAPY INH Last administered on 08/20/18 13:21; Admin Dose 4 PUFF; Start 08/15/18 at 08:00 Ipratropium [place] (Atrovent Hfa) 4 puff Q6H RESP THERAPY INH Last administered on 08/20/18 13:21; Admin Dose 4 PUFF; Start 08/15/18 at 08:00 Sodium Hypochlorite (Dakins Diluted (1/40)) 1 applic BID TP Last administered on 08/20/18 09:03; Admin Dose 1 APPLIC; Start 08/15/18 at 21:00 Famotidine (Pepcid) 20 mg DAILY GTB Last administered on 08/20/18 09:02; Admin Dose 20 MG; Start 08/16/18 at 09:00 Voriconazole (Vfend) 200 mg BID PO Last administered on 08/20/18 14:53; Admin Dose 200 MG; Start 08/20/18 at 15:00 AISSATOU DUNCAN Aug 20, 2018 17:38
[2018-08-21] VITALS (18 sets, daily range): BP systolic 93–111; BP diastolic 64–81; PULSE 83–94; RESP 17–34
[2018-08-21] MEDS: IPRATROPIUM (HFA) 12.9 GM INHALER INH SCH ×4 (01:39→19:28)
[2018-08-21] MEDS: ALBUTEROL HFA 8 GM INHALER INH SCH ×4 (01:39→19:27)
[2018-08-21] MEDS: HYDROmorphONE 0.5 MG/0.5 ML SYG IV PRN ×4 (03:06→16:48)
[2018-08-21] MEDS: LEVETIRACETAM (100 MG/ML) 5ML CUP GTB SCH ×2 (08:35→20:15)
[2018-08-21] MEDS: BALSAM PERU/CASTOR OIL 60 GM TUBE TOP SCH ×2 (08:35→20:16)
[2018-08-21] MEDS: POLYETHYLENE GLYCOL 17 GM PACKET GTB SCH (08:35)
[2018-08-21] MEDS: DAKINS 0.0125%(1/40) 473 ML SOLUTION TP SCH ×2 (08:35→20:16)
[2018-08-21] MEDS: VORICONAZOLE 200 MG TAB PO SCH ×2 (08:36→20:16)
[2018-08-21] MEDS: ZINC SULFATE 220 MG CAP GTB SCH (08:36)
[2018-08-21] MEDS: QUETIAPINE 25 MG TAB GTB SCH ×2 (08:36→20:16)
[2018-08-21] MEDS: FAMOTIDINE 20 MG TAB GTB SCH (08:36)
[2018-08-21] MEDS: ASCORBIC ACID 250 MG TAB GTB SCH (08:36)
[2018-08-21] MEDS: ENOXAPARIN 40 MG/0.4 ML SYG SC SCH (08:47)
[2018-08-21] MEDS: GABAPENTIN (50 MG/ML PO SYG) GTB SCH ×2 (08:48→20:16)
[2018-08-21] MEDS: MULTIVITAMINS/MINERALS TAB GTB SCH (08:48)
--- NOTE | 2018-08-21 11:45 | PN ---
DATE: 08/21/2018 The patient is breathing comfortably with the ventilator support. He has not had any fever spikes. PHYSICAL EXAMINATION VITAL SIGNS: Temperature this morning 98.5, blood pressure 110/75, pulse rate of 94, respirations 18 , pulse oximetry 95% saturation. He is on 30% oxygen with long-term ventilator support through trach eostomy. HEART: Regular rhythm. CHEST: Breath sounds diminished in both the lower lung tierney with a few occasional rales and rhonch i. ABDOMEN: Soft, no distention seen, tolerating G-tube feedings. Bowel sounds present. EXTREMITIES: Show no edema. Paraplegia. LABORATORY DATA: From today, sodium 142, potassium 4.7, bicarbonate of 28, BUN 47, creatinine 1.15. BUN and creatinine have both shown significant improvement since admission. The CBC shows a WBC of 33,700, hemoglobin 7.5, hematocrit 26, platelets within normal limits. He has completed Ferrlecit. At present he is on Vfend for genitourinary infection. IMPRESSION: 1. Chronic ventilator dependent respiratory failure. 2. Resolving sepsis. 3. Resolving pneumonia. 4. Urinary tract infection with Kristina. 5. Chronic kidney disease, gradually improving. 6. Chronic anemia. 7. History of nephrolithiasis. 8. Status post left nephrectomy. 9. Paraplegia secondary to previous spinal cord injury. 10. History of bipolar disorder. PLAN: 1. Continue long-term ventilator support. 2. Continue antibiotics as per the infectious disease optimization consultant. 3. Continue bronchodilator inhalation therapy. 4. Continue tube feedings. 5. Continue deep venous thrombosis prophylaxis. Overall, his pulmonary status is stable. Dictated By: HUMBERTO PEREZ MD SR/NTS Conf#: [id number] DID#: [id number] CC: JOSÉ ANTONIO MIRZA MD;*EndCC*
--- NOTE | 2018-08-21 13:45 | CONS ---
Assessment/Plan Assessment/Plan Hospital Course (Demo Recall) No acute events overnight, looks comfortable, no fevers Allergies: Tetracyclines Antimicrobials: Vfend Indwelling: Trach, PEG, PICC line, suprapubic catheter Physical examination: Chronically ill-appearing wasted middle-aged man who is awake in no distress. Head atraumatic normocephalic sclera nonicteric vehicle mucosa dry neck is supple tracheostomy present chest rise symmetrical breath sounds diminished the bases. Heart: S1-S2. Abdomen soft bowel sounds present. Extremities wasted contractured Assessment: 1. Status post sepsis 2. Recurrent UTI==> yeast, poss colonized 3. Cronic respiratory failure 4. Acute on chronic kidney disease 5. Incomplete quadriplegia 6. Pancytopenia 7. History of left breast nephrectomy 8. Multiple chronic decubitus ulcers 10. History of MRSA colonization Plan: Remains unchanged, stable Consultation Date/Type/Reason Admit Date/Time Aug 15, 2018 at 02:30 Initial Consult Date 08/16/18 Type of Consult id Requesting Provider: JOSÉ ANTONIO MIRZA MD Date/Time of Note DATE: 08/21/18 TIME: 13:45 Exam/Review of Systems Exam Vitals Vital Signs Date Temp Pulse Resp B/P (MAP) Pulse Ox O2 O2 Flow FiO2 Time Delivery Rate 08/21/18 98.2 93 20 100/73 96 Mechanical 11:10 (82) Ventilator 08/21/18 35 07:51 Intake and Output 08/20/18 08/20/18 08/21/18 1515:00 23:00 07:00 IntakeIntake Total 1370 ml OutputOutput Total 650 ml 1100 ml 1200 ml BalanceBalance -650 ml 270 ml -1200 ml Results Result Diagram: 08/20/18 0729 08/21/18 0635 Results 24hrs Laboratory Tests Test 08/21/18 06:35 Sodium Level 142 Potassium Level 4.7 Chloride Level 109 Carbon Dioxide Level 28 Anion Gap 5 Blood Urea Nitrogen 47 H Creatinine 1.15 Est Glomerular Filtrat Rate mL/min > 60 Glucose Level 90 Calcium Level 8.5 Medications Medication Current Medications Acetaminophen/ Hydrocodone Bitart ([place] (5/325)) 1 tab Q4H PRN GTB PAIN LEVEL 7-10; Start 08/15/18 at 03:30 Diphenhydramine HCl (Benadryl) 25 mg HS PRN PO INSOMNIA Last administered on 08/20/18 20:55; Admin Dose 25 MG; Start 08/15/18 at 03:30 Ondansetron HCl (Zofran Inj) 4 mg Q4H PRN IV NAUSEA AND/OR VOMITING; Start 08/06 at 03:30 Levetiracetam (Keppra Liquid) 500 mg BID GTB Last administered on 08/21/18 08:35; Admin Dose 500 MG; Start 08/15/18 at 09:00 Quetiapine Fumarate (Seroquel) 75 mg BID GTB Last administered on 08/21/18 08:36; Admin Dose 75 MG; Start 08/15/18 at 09:00 Polyethylene Glycol (Miralax) 17 gm DAILY GTB Last administered on 08/20/18 09:00; Admin Dose 17 GM; Start 08/15/18 at 09:00 Enoxaparin Sodium (Lovenox) 40 mg DAILY SC Last administered on 08/21/18 08:47; Admin Dose 40 MG; Start 08/15/18 at 09:00 Multivitamins/ Minerals (Theragran-M) 1 tab DAILY GTB Last administered on 08/21/18 08:48; Admin Dose 1 TAB; Start 08/15/18 at 09:00 Ascorbic Acid (Vitamin C) 250 mg DAILY GTB Last administered on 08/21/18 08:36; Admin Dose 250 MG; Start 08/15/18 at 09:00 Zinc Sulfate (Zinc Sulfate) 220 mg DAILY GTB Last administered on 08/21/18 08:36; Admin Dose 220 MG; Start 08/15/18 at 09:00 Gabapentin (Neurontin Liquid) 300 mg BID GTB Last administered on 08/21/18 08:48; Admin Dose 300 MG; Start 08/15/18 at 09:00 Acetaminophen (Tylenol Liquid) 650 mg Q6 PRN GTB MILD PAIN(1-3)OR ELEVATED TEMP; Start 08/15/18 at 03:30 Hydromorphone HCl (Dilaudid) 0.5 mg Q3H PRN IV SEVERE PAIN LEVEL 7-10 Last administered on 08/21/18 09:49; Admin Dose 0.5 MG; Start 08/15/18 at 03:30 Albuterol (Ventolin Hfa) 4 puff Q6H RESP THERAPY INH Last administered on 08/21/18 01:39; Admin Dose 4 PUFF; Start 08/15/18 at 08:00 Ipratropium [place] (Atrovent Hfa) 4 puff Q6H RESP THERAPY INH Last admi nistered on 08/21/18 01:39; Admin Dose 4 PUFF; Start 08/15/18 at 08:00 Sodium Hypochlorite (Dakins Diluted ()) 1 applic BID TP Last administered on 08/21/18 08:35; Admin Dose 1 APPLIC; Start 08/15/18 at 21:00 Famotidine (Pepcid) 20 mg DAILY GTB Last administered on 08/21/18 08:36; Admin Dose 20 MG; Start 08/16/18 at 09:00 Voriconazole (Vfend) 200 mg BID PO Last administered on 08/21/18 08:36; Admin Dose 200 MG; Start 08/20/18 at 15:00 REGINALDO CHERY NP Aug 21, 2018 13:45
--- NOTE | 2018-08-21 16:59 | CONS ---
Assessment/Plan Assessment/Plan Assessment/Plan (Daily) 1. Acute kidney Injury on CKD III/IV due to prerenal azotemia + ATN from sepsis 2. Status post sepsis 3. 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 ventilator dependent respiratory failure with tracheostomy, dysphagia with G-tube, chronic kidney disease III and history of right nephrectomy and left re nal nephrolithiasis, bipolar disorder Plan: IV abx meropenem and vancomycin for sepsis, ID following BUNC/Cr 47/1.15, other electrolytes including K is normal today Will follow up Consultation Date/Type/Reason Admit Date/Time Aug 15, 2018 at 02:30 Initial Consult Date 08/16/18 Type of Consult NEPHROLOGY Requesting Provider: JOSÉ ANTONIO MIRZA MD Date/Time of Note DATE: 08/21/18 TIME: 16:59 Exam/Review of Systems Exam Vitals Vital Signs Date Temp Pulse Resp B/P (MAP) Pulse Ox O2 O2 Flow FiO2 Time Delivery Rate 08/21/18 97.8 83 21 97/64 (75) 98 Mechanical 15:06 Ventilator 08/21/18 35 07:51 Intake and Output 08/20/18 08/20/18 08/21/18 1515:00 23:00 07:00 IntakeIntake Total 1370 ml OutputOutput Total 650 ml 1100 ml 1200 ml BalanceBalance -650 ml 270 ml -1200 ml Exam Constitutional: alert, oriented Head: normocephalic Neck: supple, other (Tracheostomy) Respiratory: diminished breath sounds, other (Scattered rhonchi) Cardiovascular: regular rate and rhythm Gastrointestinal: soft, non-tender, other (G-tube) Genitourinary - Male: other (Suprapubic catheter) Musculoskeletal: other (Contracted ) Extremities: normal pulses Neurological: confused Skin: other (Multiple wounds) Results Result Diagram: 08/20/18 0729 08/21/18 0635 Results 24hrs Laboratory Tests Test 08/21/18 06:35 Sodium Level 142 Potassium Level 4.7 Chloride Level 109 Carbon Dioxide Level 28 Anion Gap 5 Blood Urea Nitrogen 47 H Creatinine 1.15 Est Glomerular Filtrat Rate mL/min > 60 Glucose Level 90 Calcium Level 8.5 Medications Medication Current Medications Acetaminophen/ Hydrocodone Bitart ([place] (5/325)) 1 tab Q4H PRN GTB PAIN LEVEL 7-10; Start 08/15/18 at 03:30 Diphenhydramine HCl (Benadryl) 25 mg HS PRN PO INSOMNIA Last administered on 08/20/18 20:55; Admin Dose 25 MG; Start 08/15/18 at 03:30 Ondansetron HCl (Zofran Inj) 4 mg Q4H PRN IV NAUSEA AND/OR VOMITING; Start 08/15/18 at 03:30 Levetiracetam (Keppra Liquid) 500 mg BID GTB Last administered on 08/21/18 08:35; Admin Dose 500 MG; Start 08/15/18 at 09:00 Quetiapine Fumarate (Seroquel) 75 mg BID GTB Last administered on 08/21/18 08:36; Admin Dose 75 MG; Start 08/15/18 at 09:00 Polyethylene Glycol (Miralax) 17 gm DAILY GTB Last administered on 08/20/18 09:00; Admin Dose 17 GM; Start 08/15/18 at 09:00 Enoxaparin Sodium (Lovenox) 40 mg DAILY SC Last administered on 08/21/18 08:47; Admin Dose 40 MG; Start 08/15/18 at 09:00 Multivitamins/ Minerals (Theragran-M) 1 tab DAILY GTB Last administered on 08/21/18 08:48; Admin Dose 1 TAB; Start 08/15/18 at 09:00 Ascorbic Acid (Vitamin C) 250 mg DAILY GTB Last administered on 08/21/18 08:36; Admin Dose 250 MG; Start 08/15/18 at 09:00 Zinc Sulfate (Zinc Sulfate) 220 mg DAILY GTB Last administered on 08/21/18 08:36; Admin Dose 220 MG; Start 08/15/18 at 09:00 Gabapentin (Neurontin Liquid) 300 mg BID GTB Last administered on 08/21/18 08:48; Admin Dose 300 MG; Start 08/15/18 at 09:00 Acetaminophen (Tylenol Liquid) 650 mg Q6 PRN GTB MILD PAIN(1-3)OR ELEVATED TEMP; Start 08/15/18 at 03:30 Hydromorphone HCl (Dilaudid) 0.5 mg Q3H PRN IV SEVERE PAIN LEVEL 7-10 Last administered on 08/21/18 16:48; Admin Dose 0.5 MG; Start 08/15/18 at 03:30 Albuterol (Ventolin Hfa) 4 puff Q6H RESP THERAPY INH Last administered on 08/21/18at 14:05; Admin Dose 4 PUFF; Start 08/15/18 at 08:00 Ipratropium [place] (Atrovent Hfa) 4 puff Q6H RESP THERAPY INH Last administ ered on 08/21/18at 14:05; Admin Dose 4 PUFF; Start 08/15/18 at 08:00 Sodium Hypochlorite (Dakins Diluted (40)) 1 applic BID TP Last administered on 08/21/18at 08:35; Admin Dose 1 APPLIC; Start 08/15/18 at 21:00 Famotidine (Pepcid) 20 mg DAILY GTB Last administered on 08/21/18at 08:36; Admin Dose 20 MG; Start 08/16/18 at 09:00 Voriconazole (Vfend) 200 mg BID PO Last administered on 08/21/18at 08:36; Admin Dose 200 MG; Start 08/20/18 at 15:00 TIARA CISNEROS MD Aug 21, 2018 16:59
[2018-08-21] MEDS ORDERED: ALTEPLASE (CATHFLO) 2 MG INJ CATHETER ONE (18:30)
[2018-08-21] MEDS: HYDROCODONE/APAP (5/325) TAB GTB PRN (20:16)
--- NOTE | 2018-08-21 20:52 | PN ---
Date/Time of Note Date/Time of Note DATE: 08/21/18 TIME: 20:49 Assessment/Plan VTE Prophylaxis Risk score (from Nsg)>0 risk: 7 SCD applied (from Nsg): Yes Pharmacological prophylaxis: LMWH Lines/Catheters IV Catheter Type (from Nrsg): PICC Line Central line still needed: Yes Urinary Cath still in place: Yes Reason Cath still needed: urinary retention Assessment/Plan Hospital Course Patient continues on vent without distress, remains afebrile, potassium is 4.7. Pending Gutierrez evaluation. Assessment/Plan - Hyperkalemia, resolved. - S/p sepsis secondary to pneumonia, continue antibiotics per ID recommendations. - Large tracheal opening, s/p evaluation by Dr Woodruff in ENT consultation with recommendation for free flap closure. Patient was evaluated at [facility] – [place] [facility] refused to have surgery, not cooperative with care. - Ventilator dependent respiratory failure, continue pulmonary toilet and bronch odilators. Dr Ames is following in pulmonology consultation. - Acute on chronic renal failure. Continue to monitor BUN and creatinine. - Anemia of chronic disease. Continue Epogen. - Neurogenic bladder with suprapubic catheter. - Dysphagia with gastrostomy tube. - Seizures, continue Keppra - Multiple decubitus ulcers present on admission. - Cervical spine injury with paraplegia. - Bipolar disorder with psychosis. - Hx of right nephrectomy - Hx of left renal nephrolithiasis, hx of lithotripsy with insertion and subsequent removal of ureteral JJ stent. Further recommendations based on clinical course. Plan of care discussed with Dr. Barreto. Result Diagram: 08/20/18 0729 08/21/18 0635 Results 24hrs Laboratory Tests Test 08/21/18 06:35 Sodium Level 142 Potassium Level 4.7 Chloride Level 109 Carbon Dioxide Level 28 Anion Gap 5 Blood Urea Nitrogen 47 H Creatinine 1.15 Est Glomerular Filtrat Rate mL/min > 60 Glucose Level 90 Calcium Level 8.5 Exam/Review of Systems Exam Vitals Vital Signs Date Temp Pulse Resp B/P (MAP) Pulse Ox O2 O2 Flow FiO2 Time Delivery Rate 08/21/18 98.2 85 22 111/81 97 Mechanical 20:00 (91) Ventilator 08/21/18 35 19:25 Intake and Output 08/20/18 08/20/18 08/21/18 1515:00 23:00 07:00 IntakeIntake Total 1370 ml OutputOutput Total 650 ml 1100 ml 1200 ml BalanceBalance -650 ml 270 ml -1200 ml Exam Constitutional: alert, oriented Neck: supple, other (Tracheostomy) Respiratory: diminished breath sounds, other (Scattered rhonchi) Cardiovascular: regular rate and rhythm Gastrointestinal: soft, non-tender, other (G-tube) Genitourinary - Male: other (Suprapubic catheter) Musculoskeletal: other (Contracted ) Extremities: normal pulses Neurological: confused Skin: other (Multiple wounds) Results Results 24hrs Laboratory Tests Test 08/21/18 06:35 Sodium Level 142 Potassium Level 4.7 Chloride Level 109 Carbon Dioxide Level 28 Anion Gap 5 Blood Urea Nitrogen 47 H Creatinine 1.15 Est Glomerular Filtrat Rate mL/min > 60 Glucose Level 90 Calcium Level 8.5 Medications Medication Current Medications Acetaminophen/ Hydrocodone Bitart ([place] (5/325)) 1 tab Q4H PRN GTB PAIN LEVEL 7-10 Last administered on 08/21/18 20:16; Admin Dose 1 TAB; Start 08/15/18 at 03:30 Diphenhydramine HCl (Benadryl) 25 mg HS PRN PO INSOMNIA Last administered on 08/20/18at 20:55; Admin Dose 25 MG; Start 08/15/18 at 03:30 Ondansetron HCl (Zofran Inj) 4 mg Q4H PRN IV NAUSEA AND/OR VOMITING; Start 08/15/18 at 03:30 Levetiracetam (Keppra Liquid) 500 mg BID GTB Last administered on 08/21/18 20:15; Admin Dose 500 MG; Start 08/15/18 at 09:00 Quetiapine Fumarate (Seroquel) 75 mg BID GTB Last administered on 08/21/18 20:16; Admin Dose 75 MG; Start 08/15/18 at 09:00 Polyethylene Glycol (Miralax) 17 gm DAILY GTB Last administered on 08/20/18 09:00; Admin Dose 17 GM; Start 08/15/18 at 09:00 Enoxaparin Sodium (Lovenox) 40 mg DAILY SC Last administered on 08/21/18at 08:47; Admin Dose 40 MG; Start 08/15/18 at 09:00 Multivitamins/ Minerals (Theragran-M) 1 tab DAILY GTB Last administered on 08/21/18 08:48; Admin Dose 1 TAB; Start 08/15/18 at 09:00 Ascorbic Acid (Vitamin C) 250 mg DAILY GTB Last administered on 08/21/18 08:36; Admin Dose 250 MG; Start 08/15/18 at 09:00 Zinc Sulfate (Zinc Sulfate) 220 mg DAILY GTB Last administered on 08/21/18 08:36; Admin Dose 220 MG; Start 08/15/18 at 09:00 Gabapentin (Neurontin Liquid) 300 mg BID GTB Last administered on 08/21/18 20:16; Admin Dose 300 MG; Start 08/15/18 at 09:00 Acetaminophen (Tylenol Liquid) 650 mg Q6 PRN GTB MILD PAIN(1-3)OR ELEVATED TEMP; Start 08/15/18 at 03:30 Hydromorphone HCl (Dilaudid) 0.5 mg Q3H PRN IV SEVERE PAIN LEVEL 7-10 Last administered on 08/21/18 16:48; Admin Dose 0.5 MG; Start 08/15/18 at 03:30 Albuterol (Ventolin Hfa) 4 puff Q6H RESP THERAPY INH Last administered on 08/21/18 19:27; Admin Dose 4 PUFF; Start 08/15/18 at 08:00 Ipratropium [place] (Atrovent Hfa) 4 puff Q6H RESP THERAPY INH Last administer ed on 08/21/18 19:28; Admin Dose 4 PUFF; Start 08/15/18 at 08:00 Sodium Hypochlorite (Dakins Diluted (140)) 1 applic BID TP Last administered on 08/21/18 20:16; Admin Dose 1 APPLIC; Start 08/15/18 at 21:00 Famotidine (Pepcid) 20 mg DAILY GTB Last administered on 08/21/18 08:36; Admin Dose 20 MG; Start 08/16/18 at 09:00 Voriconazole (Vfend) 200 mg BID PO Last administered on 08/21/18 20:16; Admin Dose 200 MG; Start 08/20/18 at 15:00 AISSATOU DUNCAN Aug 21, 2018 20:52
[2018-08-22] VITALS (18 sets, daily range): BP systolic 103–114; BP diastolic 69–88; PULSE 90–102; RESP 18–30
[2018-08-22] MEDS: IPRATROPIUM (HFA) 12.9 GM INHALER INH SCH ×4 (01:02→19:33)
[2018-08-22] MEDS: ALBUTEROL HFA 8 GM INHALER INH SCH ×4 (01:03→19:33)
[2018-08-22] MEDS: HYDROmorphONE 0.5 MG/0.5 ML SYG IV PRN ×3 (01:22→14:45)
[2018-08-22] MEDS: HYDROCODONE/APAP (5/325) TAB GTB PRN (05:35)
[2018-08-22] MEDS: POLYETHYLENE GLYCOL 17 GM PACKET GTB SCH (09:00)
[2018-08-22] MEDS: VORICONAZOLE 200 MG TAB PO SCH ×2 (09:10→21:50)
[2018-08-22] MEDS: LEVETIRACETAM (100 MG/ML) 5ML CUP GTB SCH ×2 (09:10→21:50)
[2018-08-22] MEDS: GABAPENTIN (50 MG/ML PO SYG) GTB SCH ×2 (09:11→21:50)
[2018-08-22] MEDS: QUETIAPINE 25 MG TAB GTB SCH ×2 (09:11→21:50)
[2018-08-22] MEDS: FAMOTIDINE 20 MG TAB GTB SCH (09:11)
[2018-08-22] MEDS: ASCORBIC ACID 250 MG TAB GTB SCH (09:11)
[2018-08-22] MEDS: MULTIVITAMINS/MINERALS TAB GTB SCH (09:11)
[2018-08-22] MEDS: ZINC SULFATE 220 MG CAP GTB SCH (09:11)
[2018-08-22] MEDS: BALSAM PERU/CASTOR OIL 60 GM TUBE TOP SCH ×2 (09:12→21:52)
[2018-08-22] MEDS: DAKINS 0.0125%(1/40) 473 ML SOLUTION TP SCH ×2 (09:12→21:52)
[2018-08-22] MEDS: ENOXAPARIN 40 MG/0.4 ML SYG SC SCH (09:35)
--- NOTE | 2018-08-22 11:06 | CONS ---
Assessment/Plan Assessment/Plan Hospital Course (Demo Recall) No acute changes, looks comfortable, no fevers Allergies: Tetracyclines Antimicrobials: Vfend Indwelling: Trach, PEG, PICC line, suprapubic catheter Physical examination: Chronically ill-appearing wasted middle-aged man who is awake in no distress. Head atraumatic normocephalic sclera nonicteric vehicle mucosa dry neck is supple tracheostomy present chest rise symmetrical breath sounds diminished the bases. Heart: S1-S2. Abdomen soft bowel sounds present. Extremities wasted contractured Assessment: 1. Status post sepsis 2. Recurrent UTI==> yeast, poss colonized 3. Cronic respiratory failure 4. Acute on chronic kidney disease 5. Incomplete quadriplegia 6. Pancytopenia 7. History of left breast nephrectomy 8. Multiple chronic decubitus ulcers 10. History of MRSA colonization Plan: Remains unchanged, continue present care Consultation Date/Type/Reason Admit Date/Time Aug 15, 2018 at 02:30 Initial Consult Date 08/16/18 Type of Consult id Requesting Provider: JOSÉ ANTONIO MIRZA MD Date/Time of Note DATE: 08/22/18 TIME: 11:05 Exam/Review of Systems Exam Vitals Vital Signs Date Temp Pulse Resp B/P (MAP) Pulse Ox O2 O2 Flow FiO2 Time Delivery Rate 08/22/18 97.6 94 28 107/84 94 07:44 (92) 08/22/18 40 05:28 08/22/18 Mechanical 04:34 Ventilator Intake and Output 08/21/18 08/21/18 08/22/18 1515:00 23:00 07:00 IntakeIntake Total 1420 ml OutputOutput Total 1100 ml 700 ml BalanceBalance -1100 ml 720 ml Results Result Diagram: 08/22/18 0609 08/22/18 0609 Results 24hrs Laboratory Tests Test 08/22/18 06:09 White Blood Count 7.6 # Red Blood Count 2.81 L Hemoglobin 7.7 L Hematocrit 26.9 L Mean Corpuscular Volume 95.7 Mean Corpuscular Hemoglobin 27.4 L Mean Corpuscular Hemoglobin Concent 28.6 L Red Cell Distribution Width 17.3 H Platelet Count 166 Mean Platelet Volume 13.3 H Immature Granulocytes % 0.400 Neutrophils % 85.9 H Lymphocytes % 6.3 L Monocytes % 4.1 Eosinophils % 2.9 Basophils % 0.4 Nucleated Red Blood Cells % 0.0 Immature Granulocytes # 0.030 Neutrophils # 6.5 Lymphocytes # 0.5 L Monocytes # 0.3 Eosinophils # 0.2 Basophils # 0.0 Nucleated Red Blood Cells # 0.0 Sodium Level 140 Potassium Level 5.0 Chloride Level 106 Carbon Dioxide Level 28 Anion Gap 6 Blood Urea Nitrogen 45 H Creatinine 1.08 Est Glomerular Filtrat Rate mL/min > 60 Glucose Level 97 Calcium Level 8.7 Medications Medication Current Medications Acetaminophen/ Hydrocodone Bitart ([place] (5/325)) 1 tab Q4H PRN GTB PAIN LEVEL 7-10 Last administered on 08/22/18 05:35; Admin Dose 1 TAB; Start 08/15/18 at 03:30 Diphenhydramine HCl (Benadryl) 25 mg HS PRN PO INSOMNIA Last administered on 08/20/18 20:55; Admin Dose 25 MG; Start 08/15/18 at 03:30 Ondansetron HCl (Zofran Inj) 4 mg Q4H PRN IV NAUSEA AND/OR VOMITING; Start 08/15/18 at 03:30 Levetiracetam (Keppra Liquid) 500 mg BID GTB Last administered on 08/22/18 09:10; Admin Dose 500 MG; Start 08/15/18 at 09:00 Quetiapine Fumarate (Seroquel) 75 mg BID GTB Last administered on 08/22/18 09:11; Admin Dose 75 MG; Start 08/15/18 at 09:00 Polyethylene Glycol (Miralax) 17 gm DAILY GTB Last administered on 08/20/18 09:00; Admin Dose 17 GM; Start 08/15/18 at 09:00 Enoxaparin Sodium (Lovenox) 40 mg DAILY SC Last administered on 08/22/18 09:35; Admin Dose 40 MG; Start 08/15/18 at 09:00 Multivitamins/ Minerals (Theragran-M) 1 tab DAILY GTB Last administered on 08/22/18 09:11; Admin Dose 1 TAB; Start 08/15/18 at 09:00 Ascorbic Acid (Vitamin C) 250 mg DAILY GTB Last administered on 08/22/18 09:11; Admin Dose 250 MG; Start 08/15/18 at 09:00 Zinc Sulfate (Zinc Sulfate) 220 mg DAILY GTB Last administered on 08/22/18 09:11; Admin Dose 220 MG; Start 08/15/18 at 09:00 Gabapentin (Neurontin Liquid) 300 mg BID GTB Last administered on 08/22/18 09:11; Admin Dose 300 MG; Start 08/15/18 at 09:00 Acetaminophen (Tylenol Liquid) 650 mg Q6 PRN GTB MILD PAIN(1-3)OR ELEVATED TEMP; Start 08/15/18 at 03:30 Hydromorphone HCl (Dilaudid) 0.5 mg Q3H PRN IV SEVERE PAIN LEVEL 7-10 Last administered on 08/22/18 07:45; Admin Dose 0.5 MG; Start 08/15/18 at 03:30 Albuterol (Ventolin Hfa) 4 puff Q6H RESP THERAPY INH Last administered on 08/06 01:03; Admin Dose 4 PUFF; Start 08/15/18 at 08:00 Ipratropium [place] (Atrovent Hfa) 4 puff Q6H RESP THERAPY INH Last administered on 08/22/18 01:02; Admin Dose 4 PUFF; Start 08/15/18 at 08:00 Sodium Hypochlorite (Dakins Diluted (40)) 1 applic BID TP Last administered on 08/22/18 09:12; Admin Dose 1 APPLIC; Start 08/15/18 at 21:00 Famotidine (Pepcid) 20 mg DAILY GTB Last administered on 08/22/18 09:11; Admin Dose 20 MG; Start 08/16/18 at 09:00 Voriconazole (Vfend) 200 mg BID PO Last administered on 08/22/18 09:10; Admin Dose 200 MG; Start 08/20/18 at 15:00 REGINALDO CHERY NP Aug 22, 2018 11:05
--- NOTE | 2018-08-22 13:24 | CONS ---
Assessment/Plan Assessment/Plan Assessment/Plan (Daily) 1. Acute kidney Injury on CKD III/IV due to prerenal azotemia + ATN from sepsis 2. Status post sepsis 3. 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 ventilator dependent respiratory failure with tracheostomy, dysphagia with G-tube, chronic kidney disease III and history of right nephrectomy and left re nal nephrolithiasis, bipolar disorder Plan: IV abx meropenem and vancomycin for sepsis, ID following BUNC/Cr 45/1.08, other electrolytes including K is normal today Will follow up Consultation Date/Type/Reason Admit Date/Time Aug 15, 2018 at 02:30 Initial Consult Date 08/16/18 Type of Consult NEPHROLOGY Requesting Provider: JOSÉ ANTONIO MIRZA MD Date/Time of Note DATE: 08/22/18 TIME: 13:24 Exam/Review of Systems Exam Vitals Vital Signs Date Temp Pulse Resp B/P (MAP) Pulse Ox O2 O2 Flow FiO2 Time Delivery Rate 08/22/18 98.0 98 20 110/81 96 11:28 (91) 08/22/18 40 05:28 08/22/18 Mechanical 04:34 Ventilator Intake and Output 08/21/18 08/21/18 08/22/18 1515:00 23:00 07:00 IntakeIntake Total 1420 ml OutputOutput Total 1100 ml 700 ml BalanceBalance -1100 ml 720 ml Exam Constitutional: alert, oriented Head: normocephalic Neck: supple, other (Tracheostomy) Respiratory: diminished breath sounds, other (Scattered rhonchi) Cardiovascular: regular rate and rhythm Gastrointestinal: soft, non-tender, other (G-tube) Genitourinary - Male: other (Suprapubic catheter) Musculoskeletal: other (Contracted ) Extremities: normal pulses Neurological: confused Skin: other (Multiple wounds) Results Result Diagram: 08/22/18 0609 08/22/18 0609 Results 24hrs Laboratory Tests Test 08/22/18 06:09 White Blood Count 7.6 # Red Blood Count 2.81 L Hemoglobin 7.7 L Hematocrit 26.9 L Mean Corpuscular Volume 95.7 Mean Corpuscular Hemoglobin 27.4 L Mean Corpuscular Hemoglobin Concent 28.6 L Red Cell Distribution Width 17.3 H Platelet Count 166 Mean Platelet Volume 13.3 H Immature Granulocytes % 0.400 Neutrophils % 85.9 H Lymphocytes % 6.3 L Monocytes % 4.1 Eosinophils % 2.9 Basophils % 0.4 Nucleated Red Blood Cells % 0.0 Immature Granulocytes # 0.030 Neutrophils # 6.5 Lymphocytes # 0.5 L Monocytes # 0.3 Eosinophils # 0.2 Basophils # 0.0 Nucleated Red Blood Cells # 0.0 Sodium Level 140 Potassium Level 5.0 Chloride Level 106 Carbon Dioxide Level 28 Anion Gap 6 Blood Urea Nitrogen 45 H Creatinine 1.08 Est Glomerular Filtrat Rate mL/min > 60 Glucose Level 97 Calcium Level 8.7 Medications Medication Current Medications Acetaminophen/ Hydrocodone Bitart ([place] (5/325)) 1 tab Q4H PRN GTB PAIN LEVEL 7-10 Last administered on 08/22/18 05:35; Admin Dose 1 TAB; Start 08/15/18 at 0 3:30 Diphenhydramine HCl (Benadryl) 25 mg HS PRN PO INSOMNIA Last administered on 08/20/18 20:55; Admin Dose 25 MG; Start 08/15/18 at 03:30 Ondansetron HCl (Zofran Inj) 4 mg Q4H PRN IV NAUSEA AND/OR VOMITING; Start 08/15/18 at 03:30 Levetiracetam (Keppra Liquid) 500 mg BID GTB Last administered on 08/22/18 09:10; Admin Dose 500 MG; Start 08/15/18 at 09:00 Quetiapine Fumarate (Seroquel) 75 mg BID GTB Last administered on 08/22/18 09:11; Admin Dose 75 MG; Start 08/15/18 at 09:00 Polyethylene Glycol (Miralax) 17 gm DAILY GTB Last administered on 08/20/18 09:00; Admin Dose 17 GM; Start 08/15/18 at 09:00 Enoxaparin Sodium (Lovenox) 40 mg DAILY SC Last administered on 08/22/18 09:35; Admin Dose 40 MG; Start 08/15/18 at 09:00 Multivitamins/ Minerals (Theragran-M) 1 tab DAILY GTB Last administered on 08/22/18 09:11; Admin Dose 1 TAB; Start 08/15/18 at 09:00 Ascorbic Acid (Vitamin C) 250 mg DAILY GTB Last administered on 08/22/18 09:11; Admin Dose 250 MG; Start 08/15/18 at 09:00 Zinc Sulfate (Zinc Sulfate) 220 mg DAILY GTB Last administered on 08/22/18 09:11; Admin Dose 220 MG; Start 08/15/18 at 09:00 Gabapentin (Neurontin Liquid) 300 mg BID GTB Last administered on 08/22/18 09:11; Admin Dose 300 MG; Start 08/15/18 at 09:00 Acetaminophen (Tylenol Liquid) 650 mg Q6 PRN GTB MILD PAIN(1-3)OR ELEVATED TEMP; Start 08/15/18 at 03:30 Hydromorphone HCl (Dilaudid) 0.5 mg Q3H PRN IV SEVERE PAIN LEVEL 7-10 Last administered on 08/22/18 07:45; Admin Dose 0.5 MG; Start 08/15/18 at 03:30 Albuterol (Ventolin Hfa) 4 puff Q6H RESP THERAPY INH Last administered on 08/22/18 01:03; Admin Dose 4 PUFF; Start 08/15/18 at 08:00 Ipratropium [place] (Atrovent Hfa) 4 puff Q6H RESP THERAPY INH Last administered on 08/22/18 01:02; Admin Dose 4 PUFF; Start 08/15/18 at 08:00 Sodium Hypochlorite (Dakins Diluted (40)) 1 applic BID TP Last administered on 08/22/18 09:12; Admin Dose 1 APPLIC; Start 08/15/18 at 21:00 Famotidine (Pepcid) 20 mg DAILY GTB Last administered on 08/22/18 09:11; Admin Dose 20 MG; Start 08/16/18 at 09:00 Voriconazole (Vfend) 200 mg BID PO Last administered on 08/22/18 09:10; Admin Dose 200 MG; Start 08/20/18 at 15:00 TIARA CISNEROS MD Aug 22, 2018 13:24
--- NOTE | 2018-08-22 13:46 | PN ---
Date/Time of Note Date/Time of Note DATE: 08/22/18 TIME: 13:44 Assessment/Plan VTE Prophylaxis Risk score (from Nsg)>0 risk: 7 SCD applied (from Nsg): Yes Pharmacological prophylaxis: LMWH Lines/Catheters IV Catheter Type (from Nrsg): PICC Line Central line still needed: Yes Urinary Cath still in place: Yes Reason Cath still needed: urinary retention Assessment/Plan Hospital Course No acute events overnight, pending Gutierrez evaluation, social service assistant to contact power of city attorney for application for secondary insurance. Assessment/Plan - Hyperkalemia, resolved. - S/p sepsis secondary to pneumonia, continue antibiotics per ID recommendations. - Large tracheal opening, s/p evaluation by Dr Woodruff in ENT consultation with recommendation for free flap closure. Patient was evaluated at [facility] [place] [facility] refused to have surgery, not cooperative with care. - Ventilator dependent respiratory failure, continue pulmonary toilet and bronchodilators. Dr Ames is following in pulmonology consultation. - Acute on chronic renal failure. Continue to monitor BUN and creatinine. - Anemia of chronic disease. Continue Epogen. - Neurogenic bladder with suprapubic catheter. - Dysphagia with gastrostomy tube. - Seizures, continue Keppra - Multiple decubitus ulcers present on admission. - Cervical spine injury with paraplegia. - Bipolar disorder with psychosis. - Hx of right nephrectomy - Hx of left renal nephrolithiasis, hx of lithotripsy with insertion and subsequent removal of ureteral JJ stent. Further recommendations based on clinical course. Plan of care discussed with Dr. Barreto. Result Diagram: 08/22/18 0609 08/22/18 0609 Results 24hrs Laboratory Tests Test 08/22/18 06:09 White Blood Count 7.6 # Red Blood Count 2.81 L Hemoglobin 7.7 L Hematocrit 26.9 L Mean Corpuscular Volume 95.7 Mean Corpuscular Hemoglobin 27.4 L Mean Corpuscular Hemoglobin Concent 28.6 L Red Cell Distribution Width 17.3 H Platelet Count 166 Mean Platelet Volume 13.3 H Immature Granulocytes % 0.400 Neutrophils % 85.9 H Lymphocytes % 6.3 L Monocytes % 4.1 Eosinophils % 2.9 Basophils % 0.4 Nucleated Red Blood Cells % 0.0 Immature Granulocytes # 0.030 Neutrophils # 6.5 Lymphocytes # 0.5 L Monocytes # 0.3 Eosinophils # 0.2 Basophils # 0.0 Nucleated Red Blood Cells # 0.0 Sodium Level 140 Potassium Level 5.0 Chloride Level 106 Carbon Dioxide Level 28 Anion Gap 6 Blood Urea Nitrogen 45 H Creatinine 1.08 Est Glomerular Filtrat Rate mL/min > 60 Glucose Level 97 Calcium Level 8.7 Exam/Review of Systems Exam Vitals Vital Signs Date Temp Pulse Resp B/P (MAP) Pulse Ox O2 O2 Flow FiO2 Time Delivery Rate 08/22/18 98.0 98 20 110/81 96 11:28 (91) 08/22/18 40 05:28 08/22/18 Mechanical 04:34 Ventilator Intake and Output 08/21/18 08/21/18 08/22/18 1515:00 23:00 07:00 IntakeIntake Total 1420 ml OutputOutput Total 1100 ml 700 ml BalanceBalance -1100 ml 720 ml Exam Constitutional: alert, oriented Neck: supple, other (Tracheostomy) Respiratory: diminished breath sounds, other (Scattered rhonchi) Cardiovascular: regular rate and rhythm Gastrointestinal: soft, non-tender, other (G-tube) Genitourinary - Male: other (Suprapubic catheter) Musculoskeletal: other (Contracted ) Extremities: normal pulses Neurological: confused Skin: other (Multiple wounds) Results Results 24hrs Laboratory Tests Test 08/22/18 06:09 White Blood Count 7.6 # Red Blood Count 2.81 L Hemoglobin 7.7 L Hematocrit 26.9 L Mean Corpuscular Volume 95.7 Mean Corpuscular Hemoglobin 27.4 L Mean Corpuscular Hemoglobin Concent 28.6 L Red Cell Distribution Width 17.3 H Platelet Count 166 Mean Platelet Volume 13.3 H Immature Granulocytes % 0.400 Neutrophils % 85.9 H Lymphocytes % 6.3 L Monocytes % 4.1 Eosinophils % 2.9 Basophils % 0.4 Nucleated Red Blood Cells % 0.0 Immature Granulocytes # 0.030 Neutrophils # 6.5 Lymphocytes # 0.5 L Monocytes # 0.3 Eosinophils # 0.2 Basophils # 0.0 Nucleated Red Blood Cells # 0.0 Sodium Level 140 Potassium Level 5.0 Chloride Level 106 Carbon Dioxide Level 28 Anion Gap 6 Blood Urea Nitrogen 45 H Creatinine 1.08 Est Glomerular Filtrat Rate mL/min > 60 Glucose Level 97 Calcium Level 8.7 Medications Medication Current Medications Acetaminophen/ Hydrocodone Bitart ([place] (5/325)) 1 tab Q4H PRN GTB PAIN LEVEL 7-10 Last administered on 08/22/18 05:35; Admin Dose 1 TAB; Start 08/15/18 at 03:30 Diphenhydramine HCl (Benadryl) 25 mg HS PRN PO INSOMNIA Last administered on 08/20/18 20:55; Admin Dose 25 MG; Start 08/15/18 at 03:30 Ondansetron HCl (Zofran Inj) 4 mg Q4H PRN IV NAUSEA AND/OR VOMITING; Start 08/15/18 at 03:30 Levetiracetam (Keppra Liquid) 500 mg BID GTB Last administered on 08/22/18 09:10; Admin Dose 500 MG; Start 08/15/18 at 09:00 Quetiapine Fumarate (Seroquel) 75 mg BID GTB Last administered on 08/22/18 09:11; Admin Dose 75 MG; Start 08/15/18 at 09:00 Polyethylene Glycol (Miralax) 17 gm DAILY GTB Last administered on 08/20/18 0 9:00; Admin Dose 17 GM; Start 08/15/18 at 09:00 Enoxaparin Sodium (Lovenox) 40 mg DAILY SC Last administered on 08/22/18 09:35; Admin Dose 40 MG; Start 08/15/18 at 09:00 Multivitamins/ Minerals (Theragran-M) 1 tab DAILY GTB Last administered on 08/22/18 09:11; Admin Dose 1 TAB; Start 08/15/18 at 09:00 Ascorbic Acid (Vitamin C) 250 mg DAILY GTB Last administered on 08/22/18 09:11; Admin Dose 250 MG; Start 08/15/18 at 09:00 Zinc Sulfate (Zinc Sulfate) 220 mg DAILY GTB Last administered on 08/22/18 09:11; Admin Dose 220 MG; Start 08/15/18 at 09:00 Gabapentin (Neurontin Liquid) 300 mg BID GTB Last administered on 08/22/18 09:11; Admin Dose 300 MG; Start 08/15/18 at 09:00 Acetaminophen (Tylenol Liquid) 650 mg Q6 PRN GTB MILD PAIN(1-3)OR ELEVATED TEMP; Start 08/15/18 at 03:30 Hydromorphone HCl (Dilaudid) 0.5 mg Q3H PRN IV SEVERE PAIN LEVEL 7-10 Last administered on 08/22/18 07:45; Admin Dose 0.5 MG; Start 08/15/18 at 03:30 Albuterol (Ventolin Hfa) 4 puff Q6H RESP THERAPY INH Last administered on 08/22/18 01:03; Admin Dose 4 PUFF; Start 08/15/18 at 08:00 Ipratropium [place] (Atrovent Hfa) 4 puff Q6H RESP THERAPY INH Last administered on 08/22/18 01:02; Admin Dose 4 PUFF; Start 08/15/18 at 08:00 Sodium Hypochlorite (Dakins Diluted (40)) 1 applic BID TP Last administered on 08/22/18 09:12; Admin Dose 1 APPLIC; Start 08/15/18 at 21:00 Famotidine (Pepcid) 20 mg DAILY GTB Last administered on 08/22/18 09:11; Admin Dose 20 MG; Start 08/16/18 at 09:00 Voriconazole (Vfend) 200 mg BID PO Last administered on 08/22/18 09:10; Admin Dose 200 MG; Start 08/20/18 at 15:00 AISSATOU DUNCAN Aug 22, 2018 13:46
[2018-08-23] VITALS (24 sets, daily range): BP systolic 75–111; BP diastolic 48–87; PULSE 77–94; RESP 18–30
[2018-08-23] MEDS: ALBUTEROL HFA 8 GM INHALER INH SCH ×4 (01:12→19:26)
[2018-08-23] MEDS: IPRATROPIUM (HFA) 12.9 GM INHALER INH SCH ×4 (01:12→19:26)
[2018-08-23] MEDS: HYDROmorphONE 0.5 MG/0.5 ML SYG IV PRN ×3 (04:02→10:27)
[2018-08-23] MEDS: MULTIVITAMINS/MINERALS TAB GTB SCH (09:02)
[2018-08-23] MEDS: LEVETIRACETAM (100 MG/ML) 5ML CUP GTB SCH ×2 (09:02→20:36)
[2018-08-23] MEDS: FAMOTIDINE 20 MG TAB GTB SCH (09:02)
[2018-08-23] MEDS: QUETIAPINE 25 MG TAB GTB SCH ×2 (09:02→20:36)
[2018-08-23] MEDS: BALSAM PERU/CASTOR OIL 60 GM TUBE TOP SCH ×2 (09:02→20:37)
[2018-08-23] MEDS: GABAPENTIN (50 MG/ML PO SYG) GTB SCH ×2 (09:02→20:36)
[2018-08-23] MEDS: ZINC SULFATE 220 MG CAP GTB SCH (09:02)
[2018-08-23] MEDS: ASCORBIC ACID 250 MG TAB GTB SCH (09:02)
[2018-08-23] MEDS: VORICONAZOLE 200 MG TAB PO SCH ×2 (09:02→20:36)
[2018-08-23] MEDS: DAKINS 0.0125%(1/40) 473 ML SOLUTION TP SCH ×2 (09:03→20:37)
[2018-08-23] MEDS: POLYETHYLENE GLYCOL 17 GM PACKET GTB SCH (09:03)
[2018-08-23] MEDS: ENOXAPARIN 40 MG/0.4 ML SYG SC SCH (09:35)
[2018-08-23] MEDS ORDERED: SOD CHLORIDE 0.9% 250 ML IV ONE (12:30)
--- NOTE | 2018-08-23 14:31 | CONS ---
Assessment/Plan Assessment/Plan Assessment/Plan (Daily) 1. Acute kidney Injury on CKD III/IV due to prerenal azotemia + ATN from sepsis 2. Status post sepsis 3. 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 ventilator dependent respiratory failure with tracheostomy, dysphagia with G-tube, chronic kidney disease III and history of right nephrectomy and left re nal nephrolithiasis, bipolar disorder Plan: off Abx now, ID following BUNC/Cr 45/1.08, other electrolytes normal yesterday _ no labs today to review yet Will follow up Consultation Date/Type/Reason Admit Date/Time Aug 15, 2018 at 02:30 Initial Consult Date 08/16/18 Type of Consult NEPHROLOGY Requesting Provider: JOSÉ ANTONIO MIRZA MD Date/Time of Note DATE: 08/23/18 TIME: 14:31 Exam/Review of Systems Exam Vitals Vital Signs Date Temp Pulse Resp B/P (MAP) Pulse Ox O2 O2 Flow FiO2 Time Delivery Rate 08/23/18 80 80/54 (63) 13:33 08/23/18 20 97 40 12:42 08/23/18 98.2 Mechanical 11:05 Ventilator Intake and Output 08/22/18 08/22/18 08/23/18 1515:00 23:00 07:00 OutputOutput Total 1250 ml BalanceBalance -1250 ml Exam Constitutional: alert, oriented Head: normocephalic Neck: supple, other (Tracheostomy) Respiratory: diminished breath sounds, other (Scattered rhonchi) Cardiovascular: regular rate and rhythm Gastrointestinal: soft, non-tender, other (G-tube) Genitourinary - Male: other (Suprapubic catheter) Musculoskeletal: other (Contracted ) Extremities: normal pulses Neurological: confused Skin: other (Multiple wounds) Results Result Diagram: 08/22/18 0609 08/22/18 0609 Medications Medication Current Medications Acetaminophen/ Hydrocodone Bitart ([place] (5/325)) 1 tab Q4H PRN GTB PAIN LEVEL 7-10 Last administered on 08/22/18at 05:35; Admin Dose 1 TAB; Start 08/15/18 at 03:30 Diphenhydramine HCl (Benadryl) 25 mg HS PRN PO INSOMNIA Last administered on 08/20/18at 20:55; Admin Dose 25 MG; Start 08/15/18 at 03:30 Ondansetron HCl (Zofran Inj) 4 mg Q4H PRN IV NAUSEA AND/OR VOMITING; Start 08/15/18 at 03:30 Levetiracetam (Keppra Liquid) 500 mg BID GTB Last administered on 08/23/18 09:02; Admin Dose 500 MG; Start 08/15/18 at 09:00 Quetiapine Fumarate (Seroquel) 75 mg BID GTB Last administered on 08/23/18 09:02; Admin Dose 75 MG; Start 08/15/18 at 09:00 Polyethylene Glycol (Miralax) 17 gm DAILY GTB Last administered on 08/23/18 09:03; Admin Dose 17 GM; Start 08/15/18 at 09:00 Enoxaparin Sodium (Lovenox) 40 mg DAILY SC Last administered on 08/23/18 09:35; Admin Dose 40 MG; Start 08/15/18 at 09:00 Multivitamins/ Minerals (Theragran-M) 1 tab DAILY GTB Last administered on 08/23/18 09:02; Admin Dose 1 TAB; Start 08/15/18 at 09:00 Ascorbic Acid (Vitamin C) 250 mg DAILY GTB Last administered on 08/23/18 09:02; Admin Dose 250 MG; Start 08/15/18 at 09:00 Zinc Sulfate (Zinc Sulfate) 220 mg DAILY GTB Last administered on 08/23/18 09:02; Admin Dose 220 MG; Start 08/15/18 at 09:00 Gabapentin (Neurontin Liquid) 300 mg BID GTB Last administered on 08/23/18 09:02; Admin Dose 300 MG; Start 08/15/18 at 09:00 Acetaminophen (Tylenol Liquid) 650 mg Q6 PRN GTB MILD PAIN(1-3)OR ELEVATED TEMP; Start 08/15/18 at 03:30 Hydromorphone HCl (Dilaudid) 0.5 mg Q3H PRN IV SEVERE PAIN LEVEL 7-10 Last administered on 08/23/18 10:27; Admin Dose 0.5 MG; Start 08/15/18 at 03:30 Albuterol (Ventolin Hfa) 4 puff Q6H RESP THERAPY INH Last administered on 08/23/18 13:54; Admin Dose 4 PUFF; Start 08/15/18 at 08:00 Ipratropium [place] (Atrovent Hfa) 4 puff Q6H RESP THERAPY INH Last administered on 08/23/18 13:54; Admin Dose 4 PUFF; Start 08/15/18 at 08:00 Sodium Hypochlorite (Dakins Diluted ()) 1 applic BID TP Last administered on 08/23/18 09:03; Admin Dose 1 APPLIC; Start 08/15/18 at 21:00 Famotidine (Pepcid) 20 mg DAILY GTB Last administered on 08/23/18 09:02; Admin Dose 20 MG; Start 08/16/18 at 09:00 Voriconazole (Vfend) 200 mg BID PO Last administered on 08/23/18 09:02; Admin Dose 200 MG; Start 08/20/18 at 15:00 TIARA CISNEROS MD Aug 23, 2018 14:31
--- NOTE | 2018-08-23 14:49 | PN ---
Date/Time of Note Date/Time of Note DATE: 08/23/18 TIME: 14:43 Assessment/Plan VTE Prophylaxis Risk score (from Nsg)>0 risk: 7 SCD applied (from Nsg): Yes Pharmacological prophylaxis: LMWH Lines/Catheters IV Catheter Type (from Nrsg): PICC Line Central line still needed: Yes Urinary Cath still in place: Yes Reason Cath still needed: urinary retention Assessment/Plan Hospital Course Patient had an episode of desaturation due to tracheostomy catheter dislodgment status post reinsertion by respiratory, patient is currently awake alert cont inues on ventilator without distress. Pending Gutierrez evaluation, social worker psychiatric to contact power of admitted attorneys for application for secondary insurance. Assessment/Plan - Hyperkalemia, resolved. - S/p sepsis secondary to pneumonia, continue antibiotics per ID recommendations. - Large tracheal opening, s/p evaluation by Dr Woodruff in ENT consultation with recommendation for free flap closure. Patient was evaluated at [facility] [place] [facility] refused to have surgery, not cooperative with care. - Ventilator dependent respiratory failure, continue pulmonary toilet and bronchodilators. Dr Ames is following in pulmonology consultation. - Acute on chronic renal failure. Continue to monitor BUN and creatinine. - Anemia of chronic disease. Continue Epogen. - Neurogenic bladder with suprapubic catheter. - Dysphagia with gastrostomy tube. - Seizures, continue Keppra - Multiple decubitus ulcers present on admission. - Cervical spine injury with paraplegia. - Bipolar disorder with psychosis. - Hx of right nephrectomy - Hx of left renal nephrolithiasis, hx of lithotripsy with insertion and subsequent removal of ureteral JJ stent. Further recommendations based on clinical course. Plan of care discussed with Dr. Barreto. Result Diagram: 08/22/18 0609 08/22/18 0609 Exam/Review of Systems Exam Vitals Vital Signs Date Temp Pulse Resp B/P (MAP) Pulse Ox O2 O2 Flow FiO2 Time Delivery Rate 08/23/18 80 80/54 (63) 13:33 08/23/18 20 97 40 12:42 08/23/18 98.2 Mechanical 11:05 Ventilator Intake and Output 08/22/18 08/22/18 08/23/18 1515:00 23:00 07:00 OutputOutput Total 1250 ml BalanceBalance -1250 ml Exam Constitutional: alert, oriented Neck: supple, other (Tracheostomy) Respiratory: diminished breath sounds, other (Scattered rhonchi) Cardiovascular: regular rate and rhythm Gastrointestinal: soft, non-tender, other (G-tube) Genitourinary - Male: other (Suprapubic catheter) Musculoskeletal: other (Contracted ) Extremities: normal pulses Neurological: confused Skin: other (Multiple wounds) Medications Medication Current Medications Acetaminophen/ Hydrocodone Bitart ([place] (5/325)) 1 tab Q4H PRN GTB PAIN LEVEL 7-10 Last administered on 08/22/18 05:35; Admin Dose 1 TAB; Start 08/15/18 at 03:30 Diphenhydramine HCl (Benadryl) 25 mg HS PRN PO INSOMNIA Last administered on 08/20/18 20:55; Admin Dose 25 MG; Start 08/15/18 at 03:30 Ondansetron HCl (Zofran Inj) 4 mg Q4H PRN IV NAUSEA AND/OR VOMITING; Start 08/15/18 at 03:30 Levetiracetam (Keppra Liquid) 500 mg BID GTB Last administered on 08/23/18 09:02; Admin Dose 500 MG; Start 08/15/18 at 09:00 Quetiapine Fumarate (Seroquel) 75 mg BID GTB Last administered on 08/23/18 09:02; Admin Dose 75 MG; Start 08/15/18 at 09:00 Polyethylene Glycol (Miralax) 17 gm DAILY GTB Last administered on 08/23/18 09 :03; Admin Dose 17 GM; Start 08/15/18 at 09:00 Enoxaparin Sodium (Lovenox) 40 mg DAILY SC Last administered on 08/23/18 09:35; Admin Dose 40 MG; Start 08/15/18 at 09:00 Multivitamins/ Minerals (Theragran-M) 1 tab DAILY GTB Last administered on 08/23/18 09:02; Admin Dose 1 TAB; Start 08/15/18 at 09:00 Ascorbic Acid (Vitamin C) 250 mg DAILY GTB Last administered on 08/23/18 09:02; Admin Dose 250 MG; Start 08/15/18 at 09:00 Zinc Sulfate (Zinc Sulfate) 220 mg DAILY GTB Last administered on 08/23/18 09:02; Admin Dose 220 MG; Start 08/15/18 at 09:00 Gabapentin (Neurontin Liquid) 300 mg BID GTB Last administered on 08/23/18 09:02; Admin Dose 300 MG; Start 08/15/18 at 09:00 Acetaminophen (Tylenol Liquid) 650 mg Q6 PRN GTB MILD PAIN(1-3)OR ELEVATED TEMP; Start 08/15/18 at 03:30 Hydromorphone HCl (Dilaudid) 0.5 mg Q3H PRN IV SEVERE PAIN LEVEL 7-10 Last administered on 08/23/18 10:27; Admin Dose 0.5 MG; Start 08/15/18 at 03:30 Albuterol (Ventolin Hfa) 4 puff Q6H RESP THERAPY INH Last administered on 08/23/18 13:54; Admin Dose 4 PUFF; Start 08/15/18 at 08:00 Ipratropium [place] (Atrovent Hfa) 4 puff Q6H RESP THERAPY INH Last administered on 08/23/18 13:54; Admin Dose 4 PUFF; Start 08/15/18 at 08:00 Sodium Hypochlorite (Dakins Diluted (40)) 1 applic BID TP Last administered on 08/23/18 09:03; Admin Dose 1 APPLIC; Start 08/15/18 at 21:00 Famotidine (Pepcid) 20 mg DAILY GTB Last administered on 08/23/18 09:02; Admin Dose 20 MG; Start 08/16/18 at 09:00 Voriconazole (Vfend) 200 mg BID PO Last administered on 08/23/18 09:02; Admin Dose 200 MG; Start 08/20/18 at 15:00 AISSATOU DUNCAN Aug 23, 2018 14:49
--- NOTE | 2018-08-23 16:05 | CONS ---
Assessment/Plan Assessment/Plan Hospital Course (Demo Recall) Patient is awake hypertensive in no distress follows commands no fevers overnight WBC yesterday 7.6 platelets 166 neutrophils 85.9 Allergies: Tetracyclines Antimicrobials: Vfend Indwelling: Trach, PEG, PICC line, suprapubic catheter Physical examination: Chronically ill-appearing wasted middle-aged man who is awake in no distress. Head atraumatic normocephalic sclera nonicteric vehicle mucosa dry neck is supple tracheostomy present chest rise symmetrical breath sounds diminished the bases. Heart: S1-S2. Abdomen soft bowel sounds present. Extremities wasted contractured Assessment: 1. Hypertension, rule out sepsis 2. Recurrent UTI==> yeast, poss colonized 3. Chronic respiratory failure 4. Acute on chronic kidney disease 5. Incomplete quadriplegia 6. Pancytopenia 7. History of left breast nephrectomy 8. Multiple chronic decubitus ulcers 10. History of MRSA colonization Plan: Clinically stable, repeat urine culture and chest x-ray Consultation Date/Type/Reason Admit Date/Time Aug 15, 2018 at 02:30 Initial Consult Date 08/16/18 Type of Consult id Requesting Provider: JOSÉ ANTONIO MIRZA MD Date/Time of Note DATE: 08/23/18 TIME: 16:04 Exam/Review of Systems Exam Vitals Vital Signs Date Temp Pulse Resp B/P (MAP) Pulse Ox O2 O2 Flow FiO2 Time Delivery Rate 08/23/18 78 90/67 (75) 99 Mechanical 15:36 Ventilator 08/23/18 24 40 15:25 08/23/18 98.1 15:16 Intake and Output 08/22/18 08/22/18 08/23/18 1515:00 23:00 07:00 OutputOutput Total 1250 ml BalanceBalance -1250 ml Results Result Diagram: 08/22/18 0609 08/22/18 0609 Medications Medication Current Medications Acetaminophen/ Hydrocodone Bitart ([place] (5/325)) 1 tab Q4H PRN GTB PAIN LEVEL 7-10 Last administered on 08/22/18at 05:35; Admin Dose 1 TAB; Start 08/15/18 at 03:30 Diphenhydramine HCl (Benadryl) 25 mg HS PRN PO INSOMNIA Last administered on 08/20/18at 20:55; Admin Dose 25 MG; Start 08/15/18 at 03:30 Ondansetron HCl (Zofran Inj) 4 mg Q4H PRN IV NAUSEA AND/OR VOMITING; Start 08/15/18 at 03:30 Levetiracetam (Keppra Liquid) 500 mg BID GTB Last administered on 08/23/18 09:02; Admin Dose 500 MG; Start 08/15/18 at 09:00 Quetiapine Fumarate (Seroquel) 75 mg BID GTB Last administered on 08/23/18 09:02; Admin Dose 75 MG; Start 08/15/18 at 09:00 Polyethylene Glycol (Miralax) 17 gm DAILY GTB Last administered on 08/23/18 09:03; Admin Dose 17 GM; Start 08/15/18 at 09:00 Enoxaparin Sodium (Lovenox) 40 mg DAILY SC Last administered on 08/23/18 09:35; Admin Dose 40 MG; Start 08/15/18 at 09:00 Multivitamins/ Minerals (Theragran-M) 1 tab DAILY GTB Last administered on 08/23/18 09:02; Admin Dose 1 TAB; Start 08/15/18 at 09:00 Ascorbic Acid (Vitamin C) 250 mg DAILY GTB Last administered on 08/23/18 09:02; Admin Dose 250 MG; Start 08/15/18 at 09:00 Zinc Sulfate (Zinc Sulfate) 220 mg DAILY GTB Last administered on 08/23/18 09:02; Admin Dose 220 MG; Start 08/15/18 at 09:00 Gabapentin (Neurontin Liquid) 300 mg BID GTB Last administered on 08/23/18 09:02; Admin Dose 300 MG; Start 08/15/18 at 09:00 Acetaminophen (Tylenol Liquid) 650 mg Q6 PRN GTB MILD PAIN(1-3)OR ELEVATED TEMP; Start 08/15/18 at 03:30 Hydromorphone HCl (Dilaudid) 0.5 mg Q3H PRN IV SEVERE PAIN LEVEL 7-10 Last administered on 08/23/18 10:27; Admin Dose 0.5 MG; Start 08/15/18 at 03:30 Albuterol (Ventolin Hfa) 4 puff Q6H RESP THERAPY INH Last administered on 08/23/18 13:54; Admin Dose 4 PUFF; Start 08/15/18 at 08:00 Ipratropium [place] (Atrovent Hfa) 4 puff Q6H RESP THERAPY INH Last admini stered on 08/23/18 13:54; Admin Dose 4 PUFF; Start 08/15/18 at 08:00 Sodium Hypochlorite (Dakins Diluted ()) 1 applic BID TP Last administered on 08/23/18 09:03; Admin Dose 1 APPLIC; Start 08/15/18 at 21:00 Famotidine (Pepcid) 20 mg DAILY GTB Last administered on 08/23/18 09:02; Admin Dose 20 MG; Start 08/16/18 at 09:00 Voriconazole (Vfend) 200 mg BID PO Last administered on 08/23/18 09:02; Admin Dose 200 MG; Start 08/20/18 at 15:00 REGINALDO CHERY NP Aug 23, 2018 16:05
[2018-08-24] VITALS (16 sets, daily range): BP systolic 90–110; BP diastolic 60–73; PULSE 71–99; RESP 20–31
[2018-08-24] MEDS: ALBUTEROL HFA 8 GM INHALER INH SCH ×4 (01:14→19:19)
[2018-08-24] MEDS: IPRATROPIUM (HFA) 12.9 GM INHALER INH SCH ×4 (01:14→19:19)
--- NOTE | 2018-08-24 08:19 | CONS ---
Assessment/Plan Assessment/Plan Assessment/Plan (Daily) 1. Acute kidney Injury on CKD III/IV due to prerenal azotemia + ATN from sepsis 2. Status post sepsis 3. 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 ventilator dependent respiratory failure with tracheostomy, dysphagia with G-tube, chronic kidney disease III and history of right nephrectomy and left re nal nephrolithiasis, bipolar disorder Plan: off Abx now, ID following BUNC/Cr 50/1.34 other electrolytes normal Will follow up Consultation Date/Type/Reason Admit Date/Time Aug 15, 2018 at 02:30 Initial Consult Date 08/16/18 Type of Consult NEPHROLOGY Requesting Provider: JOSÉ ANTONIO MIRZA MD Date/Time of Note DATE: 08/24/18 TIME: 08:19 Exam/Review of Systems Exam Vitals Vital Signs Date Temp Pulse Resp B/P (MAP) Pulse Ox O2 O2 Flow FiO2 Time Delivery Rate 08/24/18 98.3 99 31 104/70 99 Mechanical 08:09 (81) Ventilator 08/24/18 40 07:45 Intake and Output 08/23/18 08/23/18 08/24/18 1414:59 22:59 06:59 IntakeIntake Total 1420 ml 1420 ml OutputOutput Total 900 ml 1300 ml BalanceBalance 520 ml 120 ml Exam Constitutional: alert, oriented Head: normocephalic Neck: supple, other (Tracheostomy) Respiratory: diminished breath sounds, other (Scattered rhonchi) Cardiovascular: regular rate and rhythm Gastrointestinal: soft, non-tender, other (G-tube) Genitourinary - Male: other (Suprapubic catheter) Musculoskeletal: other (Contracted ) Extremities: normal pulses Neurological: confused Skin: other (Multiple wounds) Results Result Diagram: 08/24/18 0609 08/24/18 0609 Results 24hrs Laboratory Tests Test 08/24/18 06:09 White Blood Count 5.0 # Red Blood Count 2.72 L Hemoglobin 7.6 L Hematocrit 26.6 L Mean Corpuscular Volume 97.8 Mean Corpuscular Hemoglobin 27.9 L Mean Corpuscular Hemoglobin Concent 28.6 L Red Cell Distribution Width 18.1 H Platelet Count 168 Mean Platelet Volume 12.8 H Immature Granulocytes % 0.400 Neutrophils % 83.6 H Lymphocytes % 9.2 L Monocytes % 4.8 Eosinophils % 1.8 Basophils % 0.2 Nucleated Red Blood Cells % 0.0 Immature Granulocytes # 0.020 Neutrophils # 4.2 Lymphocytes # 0.5 L Monocytes # 0.2 L Eosinophils # 0.1 Basophils # 0.0 Nucleated Red Blood Cells # 0.0 Sodium Level 143 Potassium Level 5.0 Chloride Level 110 Carbon Dioxide Level 26 Anion Gap 7 Blood Urea Nitrogen 50 H Creatinine 1.34 H Est Glomerular Filtrat Rate mL/min 58 L Glucose Level 103 Calcium Level 8.9 Medications Medication Current Medications Acetaminophen/ Hydrocodone Bitart ([place] (5/325)) 1 tab Q4H PRN GTB PAIN LEVEL 7-10 Last administered on 08/22/18 05:35; Admin Dose 1 TAB; Start 08/15/18 at 03:30 Diphenhydramine HCl (Benadryl) 25 mg HS PRN PO INSOMNIA Last administered on 08/20/18 20:55; Admin Dose 25 MG; Start 08/15/18 at 03:30 Ondansetron HCl (Zofran Inj) 4 mg Q4H PRN IV NAUSEA AND/OR VOMITING; Start 08/15/18 at 03:30 Levetiracetam (Keppra Liquid) 500 mg BID GTB Last administered on 08/23/18 20:36; Admin Dose 500 MG; Start 08/15/18 at 09:00 Quetiapine Fumarate (Seroquel) 75 mg BID GTB Last administered on 08/23/18 20:36; Admin Dose 75 MG; Start 08/15/18 at 09:00 Polyethylene Glycol (Miralax) 17 gm DAILY GTB Last administered on 08/23/18 09:03; Admin Dose 17 GM; Start 08/15/18 at 09:00 Enoxaparin Sodium (Lovenox) 40 mg DAILY SC Last administered on 08/23/18 09:35; Admin Dose 40 MG; Start 08/15/18 at 09:00 Multivitamins/ Minerals (Theragran-M) 1 tab DAILY GTB Last administered on 08/23/18 09:02; Admin Dose 1 TAB; Start 08/15/18 at 09:00 Ascorbic Acid (Vitamin C) 250 mg DAILY GTB Last administered on 08/23/18 09:02; Admin Dose 250 MG; Start 08/15/18 at 09:00 Zinc Sulfate (Zinc Sulfate) 220 mg DAILY GTB Last administered on 08/23/18 09:02; Admin Dose 220 MG; Start 08/15/18 at 09:00 Gabapentin (Neurontin Liquid) 300 mg BID GTB Last administered on 08/23/18 20:36; Admin Dose 300 MG; Start 08/15/18 at 09:00 Acetaminophen (Tylenol Liquid) 650 mg Q6 PRN GTB MILD PAIN(1-3)OR ELEVATED TEMP; Start 08/15/18 at 03:30 Hydromorphone HCl (Dilaudid) 0.5 mg Q3H PRN IV SEVERE PAIN LEVEL 7-10 Last administered on 08/23/18 10:27; Admin Dose 0.5 MG; Start 08/15/18 at 03:30 Albuterol (Ventolin Hfa) 4 puff Q6H RESP THERAPY INH Last administered on 08/24/18 07:47; Admin Dose 4 PUFF; Start 08/15/18 at 08:00 Ipratropium [place] (Atrovent Hfa) 4 puff Q6H RESP THERAPY INH Last administered on 08/24/18 07:47; Admin Dose 4 PUFF; Start 08/15/18 at 08:00 Sodium Hypochlorite (Dakins Diluted (140)) 1 applic BID TP Last administered on 08/23/18 20:37; Admin Dose 1 APPLIC; Start 08/15/18 at 21:00 Famotidine (Pepcid) 20 mg DAILY GTB Last administered on 08/23/18 09:02; Admin Dose 20 MG; Start 08/16/18 at 09:00 Voriconazole (Vfend) 200 mg BID PO Last administered on 08/23/18 20:36; Admin Dose 200 MG; Start 08/20/18 at 15:00 TIARA CISNEROS MD Aug 24, 2018 08:19
[2018-08-24] MEDS: HYDROmorphONE 0.5 MG/0.5 ML SYG IV PRN ×4 (08:26→19:13)
--- NOTE | 2018-08-24 08:59 | PN ---
Date/Time of Note Date/Time of Note DATE: 08/24/18 TIME: 08:56 Assessment/Plan VTE Prophylaxis Risk score (from Ns)>0 risk: 8 SCD applied (from Ns): Yes SCD contraindicated: other Pharmacological prophylaxis: other Pharm contraindication: other Lines/Catheters IV Catheter Type (from Nrsg): PICC Line Central line still needed: Yes Urinary Cath still in place: Yes Reason Cath still needed: urinary retention Assessment/Plan Assessment/Plan - S/p sepsis secondary to pneumonia, continue antibiotics per ID recommendations. - Large tracheal opening, s/p evaluation by Dr Woodruff in ENT consultation with recommendation for free flap closure. Patient was evaluated at [facility] [place] [facility] refused to have surgery, not cooperative with care. - Ventilator dependent respiratory failure, continue pulmonary toilet and bronchodilators. Dr Ames is following in pulmonology consultation. - Acute on chronic renal failure. Continue to monitor BUN and creatinine. - Anemia of chronic disease. Continue Epogen. - Neurogenic bladder with suprapubic catheter. - Dysphagia with gastrostomy tube. - Seizures, continue Keppra - Multiple decubitus ulcers present on admission. - Cervical spine injury with paraplegia. - Bipolar disorder with psychosis. - Hx of right nephrectomy - Hx of left renal nephrolithiasis, hx of lithotripsy with insertion and subsequent removal of ureteral JJ stent. Further recommendations based on clinical course. Plan of care discussed with Dr. Barreto. Result Diagram: 08/24/18 0609 08/24/18 0609 Results 24hrs Laboratory Tests Test 08/24/18 06:09 White Blood Count 5.0 # Red Blood Count 2.72 L Hemoglobin 7.6 L Hematocrit 26.6 L Mean Corpuscular Volume 97.8 Mean Corpuscular Hemoglobin 27.9 L Mean Corpuscular Hemoglobin Concent 28.6 L Red Cell Distribution Width 18.1 H Platelet Count 168 Mean Platelet Volume 12.8 H Immature Granulocytes % 0.400 Neutrophils % 83.6 H Lymphocytes % 9.2 L Monocytes % 4.8 Eosinophils % 1.8 Basophils % 0.2 Nucleated Red Blood Cells % 0.0 Immature Granulocytes # 0.020 Neutrophils # 4.2 Lymphocytes # 0.5 L Monocytes # 0.2 L Eosinophils # 0.1 Basophils # 0.0 Nucleated Red Blood Cells # 0.0 Sodium Level 143 Potassium Level 5.0 Chloride Level 110 Carbon Dioxide Level 26 Anion Gap 7 Blood Urea Nitrogen 50 H Creatinine 1.34 H Est Glomerular Filtrat Rate mL/min 58 L Glucose Level 103 Calcium Level 8.9 Subjective 24 Hr Interval Summary Free Text/Dictation - no new events overnight -pending transfer - dw staff Subjective hx not possible: pt non-verbal Constitutional: requiring O2 Exam/Review of Systems Exam Vitals Vital Signs Date Temp Pulse Resp B/P (MAP) Pulse Ox O2 O2 Flow FiO2 Time Delivery Rate 08/24/18 98.3 99 31 104/70 99 Mechanical 08:09 (81) Ventilator 08/24/18 40 07:45 Intake and Output 08/23/18 08/23/18 08/24/18 1515:00 23:00 07:00 IntakeIntake Total 1420 ml 1420 ml OutputOutput Total 900 ml 1300 ml BalanceBalance 520 ml 120 ml Constitutional: alert, non-verbal, frail Psych: nl mood/affect Head: atraumatic Eyes: nl lids, nl sclera ENMT: nl external ears & nose Neck: non-tender, other (trach intact) Respiratory: clear to auscultation Cardiovascular: nl pulses, other (s1s2) Gastrointestinal: soft, non-tender, other (gt intact) Musculoskeletal: muscle weakness Extremities: normal pulses Neurological: confused, other (alert) Skin: other (decubs) Lymph: nontender Results Results 24hrs Laboratory Tests Test 08/24/18 06:09 White Blood Count 5.0 # Red Blood Count 2.72 L Hemoglobin 7.6 L Hematocrit 26.6 L Mean Corpuscular Volume 97.8 Mean Corpuscular Hemoglobin 27.9 L Mean Corpuscular Hemoglobin Concent 28.6 L Red Cell Distribution Width 18.1 H Platelet Count 168 Mean Platelet Volume 12.8 H Immature Granulocytes % 0.400 Neutrophils % 83.6 H Lymphocytes % 9.2 L Monocytes % 4.8 Eosinophils % 1.8 Basophils % 0.2 Nucleated Red Blood Cells % 0.0 Immature Granulocytes # 0.020 Neutrophils # 4.2 Lymphocytes # 0.5 L Monocytes # 0.2 L Eosinophils # 0.1 Basophils # 0.0 Nucleated Red Blood Cells # 0.0 Sodium Level 143 Potassium Level 5.0 Chloride Level 110 Carbon Dioxide Level 26 Anion Gap 7 Blood Urea Nitrogen 50 H Creatinine 1.34 H Est Glomerular Filtrat Rate mL/min 58 L Glucose Level 103 Calcium Level 8.9 Medications Medication Current Medications Acetaminophen/ Hydrocodone Bitart ([place] (5/325)) 1 tab Q4H PRN GTB PAIN LEVEL 7-10 Last administered on 08/22/18 05:35; Admin Dose 1 TAB; Start 08/15/18 at 03:30 Diphenhydramine HCl (Benadryl) 25 mg HS PRN PO INSOMNIA Last administered on 08/20/18 20:55; Admin Dose 25 MG; Start 08/15/18 at 03:30 Ondansetron HCl (Zofran Inj) 4 mg Q4H PRN IV NAUSEA AND/OR VOMITING; Start 08/15/18 at 03:30 Levetiracetam (Keppra Liquid) 500 mg BID GTB Last administered on 08/23/18 20:36; Admin Dose 500 MG; Start 08/15/18 at 09:00 Quetiapine Fumarate (Seroquel) 75 mg BID GTB Last administered on 08/23/18 20:36; Admin Dose 75 MG; Start 08/15/18 at 09:00 Polyethylene Glycol (Miralax) 17 gm DAILY GTB Last administered on 08/23/18 09:03; Admin Dose 17 GM; Start 08/15/18 at 09:00 Enoxaparin Sodium (Lovenox) 40 mg DAILY SC Last administered on 08/23/18 09:35; Admin Dose 40 MG; Start 08/15/18 at 09:00 Multivitamins/ Minerals (Theragran-M) 1 tab DAILY GTB Last administered on 08/23/18 09:02; Admin Dose 1 TAB; Start 08/15/18 at 09:00 Ascorbic Acid (Vitamin C) 250 mg DAILY GTB Last administered on 08/23/18 09:02; Admin Dose 250 MG; Start 08/15/18 at 09:00 Zinc Sulfate (Zinc Sulfate) 220 mg DAILY GTB Last administered on 08/23/18 09: 02; Admin Dose 220 MG; Start 08/15/18 at 09:00 Gabapentin (Neurontin Liquid) 300 mg BID GTB Last administered on 08/23/18 20:36; Admin Dose 300 MG; Start 08/15/18 at 09:00 Acetaminophen (Tylenol Liquid) 650 mg Q6 PRN GTB MILD PAIN(1-3)OR ELEVATED TEMP; Start 08/15/18 at 03:30 Hydromorphone HCl (Dilaudid) 0.5 mg Q3H PRN IV SEVERE PAIN LEVEL 7-10 Last administered on 08/24/18 08:26; Admin Dose 0.5 MG; Start 08/15/18 at 03:30 Albuterol (Ventolin Hfa) 4 puff Q6H RESP THERAPY INH Last administered on 08/24/18 07:47; Admin Dose 4 PUFF; Start 08/15/18 at 08:00 Ipratropium [place] (Atrovent Hfa) 4 puff Q6H RESP THERAPY INH Last administered on 08/24/18 07:47; Admin Dose 4 PUFF; Start 08/15/18 at 08:00 Sodium Hypochlorite (Dakins Diluted (40)) 1 applic BID TP Last administered on 08/23/18 20:37; Admin Dose 1 APPLIC; Start 08/15/18 at 21:00 Famotidine (Pepcid) 20 mg DAILY GTB Last administered on 08/23/18 09:02; Admin Dose 20 MG; Start 08/16/18 at 09:00 Voriconazole (Vfend) 200 mg BID PO Last administered on 08/23/18 20:36; Admin Dose 200 MG; Start 08/20/18 at 15:00 NAE VELAZCO Aug 24, 2018 08:59
[2018-08-24] MEDS: LEVETIRACETAM (100 MG/ML) 5ML CUP GTB SCH ×2 (11:29→21:08)
[2018-08-24] MEDS: MULTIVITAMINS/MINERALS TAB GTB SCH (11:34)
[2018-08-24] MEDS: VORICONAZOLE 200 MG TAB PO SCH ×2 (11:34→21:08)
[2018-08-24] MEDS: FAMOTIDINE 20 MG TAB GTB SCH (11:34)
[2018-08-24] MEDS: ASCORBIC ACID 250 MG TAB GTB SCH (11:34)
[2018-08-24] MEDS: ZINC SULFATE 220 MG CAP GTB SCH (11:35)
[2018-08-24] MEDS: BALSAM PERU/CASTOR OIL 60 GM TUBE TOP SCH ×2 (11:36→21:09)
[2018-08-24] MEDS: DAKINS 0.0125%(1/40) 473 ML SOLUTION TP SCH ×2 (11:36→21:09)
[2018-08-24] MEDS: ENOXAPARIN 40 MG/0.4 ML SYG SC SCH (11:54)
--- NOTE | 2018-08-24 13:25 | PN ---
DATE: 08/24/2018 SUBJECTIVE: The patient condition is same. He is awake, responsive, noncooperative. He is on long- term ventilator support and shows no signs of respiratory distress. PHYSICAL EXAMINATION: VITAL SIGNS: Stable. Temperature 98.6, blood pressure 96/71, pulse rate 92, respirations 26, pulse oximetry 99% saturation. NECK: Tracheal secretions are minimal to clear. No bleeding seen. HEART: Regular rhythm. CHEST: Breath sounds are heard diminished in the lower lung tierney. Auscultation is difficult due t o patient's noncooperation. ABDOMEN: Soft. No localized tenderness and no distention. Tolerating tube feedings. Normal bowel sounds. EXTREMITIES: Show no edema. He is paraplegic. LABORATORY DATA: From today shows sodium 143, potassium 5, BUN 50, creatinine 1.34, glucose of 103. BUN and creatinine may not show further improvement due to his underlying chronic kidney disease. The CBC shows a WBC 5000, hemoglobin 7.6, hematocrit 26.6, platelets within normal limits. The chest x-ray taken yesterday is reported to show bibasilar changes with atelectasis and infiltrate and probable pleural effusion, also questionable pleural effusion on the left side. Most of these c hanges seem to be chronic, patient's condition does not warrant any further procedures like thoracent esis at this time. IMPRESSION: 1. Chronic ventilator dependent respiratory failure. 2. Sepsis, pneumonia. 3. Urinary tract infection with Kristina. 4. Chronic kidney disease, gradually improving. 5. Chronic anemia. 6. History of nephrolithiasis. 7. Status post left nephrectomy. 8. Paraplegia secondary to previous spinal cord injury. 9. History of bipolar disorder. PLAN: 1. Continue long-term ventilator support. 2. Continue antibiotics per urinary tract infection as per the infectious disease project management consultant. 3. Continue bronchodilator inhalation therapy. 4. Continue tube feedings. 5. Continue deep venous thrombosis prophylaxis. Pulmonary status seems stable. The patient needs to be on long-term ventilator support and not a can didate for any weaning. The patient has failed his weaning trials several times in the past. Discha rge planning may be initiated if other consultants agree and if his condition is stable. Dictated By: HUMBERTO PEREZ MD SR/QUE Conf#: [id number] DID#: [id number] CC: JOSÉ ANTONIO MIRZA MD;*[facility]*
--- NOTE | 2018-08-24 13:52 | CONS ---
Assessment/Plan Assessment/Plan Hospital Course (Demo Recall) Patient is awake looks comfortable Allergies: Tetracyclines Antimicrobials: Vfend Indwelling: Trach, PEG, PICC line, suprapubic catheter Physical examination: Chronically ill-appearing wasted middle-aged man who is awake in no distress. Head atraumatic normocephalic sclera nonicteric vehicle mucosa dry neck is supple tracheostomy present chest rise symmetrical breath sounds diminished the bases. Heart: S1-S2. Abdomen soft bowel sounds present. Extremities wasted contractured Assessment: 1. Hypotension, rule out sepsis 2. Recurrent UTI==> yeast, poss colonized 3. Chronic respiratory failure 4. Acute on chronic kidney disease 5. Incomplete quadriplegia 6. Pancytopenia 7. History of left breast nephrectomy 8. Multiple chronic decubitus ulcers 10. History of MRSA colonization Plan: Clinically stable, pending repeat urine culture, chest x-ray noted Consultation Date/Type/Reason Admit Date/Time Aug 15, 2018 at 02:30 Initial Consult Date 08/16/18 Type of Consult id Requesting Provider: JOSÉ ANTONIO MIRZA MD Date/Time of Note DATE: 08/24/18 TIME: 13:51 Exam/Review of Systems Exam Vitals Vital Signs Date Temp Pulse Resp B/P (MAP) Pulse Ox O2 O2 Flow FiO2 Time Delivery Rate 08/24/18 92 24 96 40 13:05 08/24/18 98.6 96/71 (79) Mechanical 11:22 Ventilator Intake and Output 08/23/18 08/23/18 08/24/18 1515:00 23:00 07:00 IntakeIntake Total 1420 ml 1420 ml OutputOutput Total 900 ml 1300 ml BalanceBalance 520 ml 120 ml Results Result Diagram: 08/24/18 0609 08/24/18 0609 Results 24hrs Laboratory Tests Test 08/24/18 06:09 White Blood Count 5.0 # Red Blood Count 2.72 L Hemoglobin 7.6 L Hematocrit 26.6 L Mean Corpuscular Volume 97.8 Mean Corpuscular Hemoglobin 27.9 L Mean Corpuscular Hemoglobin Concent 28.6 L Red Cell Distribution Width 18.1 H Platelet Count 168 Mean Platelet Volume 12.8 H Immature Granulocytes % 0.400 Neutrophils % 83.6 H Lymphocytes % 9.2 L Monocytes % 4.8 Eosinophils % 1.8 Basophils % 0.2 Nucleated Red Blood Cells % 0.0 Immature Granulocytes # 0.020 Neutrophils # 4.2 Lymphocytes # 0.5 L Monocytes # 0.2 L Eosinophils # 0.1 Basophils # 0.0 Nucleated Red Blood Cells # 0.0 Sodium Level 143 Potassium Level 5.0 Chloride Level 110 Carbon Dioxide Level 26 Anion Gap 7 Blood Urea Nitrogen 50 H Creatinine 1.34 H Est Glomerular Filtrat Rate mL/min 58 L Glucose Level 103 Calcium Level 8.9 Medications Medication Current Medications Acetaminophen/ Hydrocodone Bitart ([place] (5/325)) 1 tab Q4H PRN GTB PAIN LEVEL 7-10 Last administered on 08/22/18 05:35; Admin Dose 1 TAB; Start 08/15/18 at 03:30 Diphenhydramine HCl (Benadryl) 25 mg HS PRN PO INSOMNIA Last administered on 08/20/18 20:55; Admin Dose 25 MG; Start 08/15/18 at 03:30 Ondansetron HCl (Zofran Inj) 4 mg Q4H PRN IV NAUSEA AND/OR VOMITING; Start 08/15/18 at 03:30 Levetiracetam (Keppra Liquid) 500 mg BID GTB Last administered on 08/24/18 11:29; Admin Dose 500 MG; Start 08/15/18 at 09:00 Quetiapine Fumarate (Seroquel) 75 mg BID GTB Last administered on 08/23/18 20:36; Admin Dose 75 MG; Start 08/15/18 at 09:00 Polyethylene Glycol (Miralax) 17 gm DAILY GTB Last administered on 08/23/18 09:03; Admin Dose 17 GM; Start 08/15/18 at 09:00 Enoxaparin Sodium (Lovenox) 40 mg DAILY SC Last administered on 08/24/18 11:54; Admin Dose 40 MG; Start 08/15/18 at 09:00 Multivitamins/ Minerals (Theragran-M) 1 tab DAILY GTB Last administered on 08/24/18 11:34; Admin Dose 1 TAB; Start 08/15/18 at 09:00 Ascorbic Acid (Vitamin C) 250 mg DAILY GTB Last administered on 08/24/18 11:34; Admin Dose 250 MG; Start 08/15/18 at 09:00 Zinc Sulfate (Zinc Sulfate) 220 mg DAILY GTB Last administered on 08/24/18 11:35; Admin Dose 220 MG; Start 08/15/18 at 09:00 Gabapentin (Neurontin Liquid) 300 mg BID GTB Last administered on 08/23/18 20:36; Admin Dose 300 MG; Start 08/15/18 at 09:00 Acetaminophen (Tylenol Liquid) 650 mg Q6 PRN GTB MILD PAIN(1-3)OR ELEVATED TEMP; Start 08/15/18 at 03:30 Hydromorphone HCl (Dilaudid) 0.5 mg Q3H PRN IV SEVERE PAIN LEVEL 7-10 Last administered on 08/24/18 11:30; Admin Dose 0.5 MG; Start 08/15/18 at 03:30 Albuterol (Ventolin Hfa) 4 puff Q6H RESP THERAPY INH Last administered on 08/24/18 13:49; Admin Dose 4 PUFF; Start 08/15/18 at 08:00 Ipratropium [place] (Atrovent Hfa) 4 puff Q6H RESP THERAPY INH Last administered on 08/24/18 13:49; Admin Dose 4 PUFF; Start 08/15/18 at 08:00 Sodium Hypochlorite (Dakins Diluted ()) 1 applic BID TP Last administered on 08/24/18 11:36; Admin Dose 1 APPLIC; Start 08/15/18 at 21:00 Famotidine (Pepcid) 20 mg DAILY GTB Last administered on 08/24/18 11:34; Admin Dose 20 MG; Start 08/16/18 at 09:00 Voriconazole (Vfend) 200 mg BID PO Last administered on 08/24/18 11:34; Admin Dose 200 MG; Start 08/20/18 at 15:00 REGINALDO CHERY NP Aug 24, 2018 13:52
[2018-08-24] MEDS: QUETIAPINE 25 MG TAB GTB SCH ×2 (14:56→21:08)
[2018-08-24] MEDS: GABAPENTIN (50 MG/ML PO SYG) GTB SCH ×2 (14:56→21:08)
[2018-08-24] MEDS: POLYETHYLENE GLYCOL 17 GM PACKET GTB SCH (14:56)
[2018-08-25] VITALS (18 sets, daily range): BP systolic 94–101; BP diastolic 63–82; PULSE 74–94; RESP 20–28
[2018-08-25] MEDS: ALBUTEROL HFA 8 GM INHALER INH SCH ×4 (01:29→20:53)
[2018-08-25] MEDS: IPRATROPIUM (HFA) 12.9 GM INHALER INH SCH ×4 (01:29→20:53)
[2018-08-25] MEDS: HYDROmorphONE 0.5 MG/0.5 ML SYG IV PRN ×3 (03:26→20:27)
--- NOTE | 2018-08-25 08:47 | CONS ---
Assessment/Plan Assessment/Plan Assessment/Plan (Daily) 1. Acute kidney Injury on CKD III/IV due to prerenal azotemia + ATN from sepsis 2. Status post sepsis 3. 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 ventilator dependent respiratory failure with tracheostomy, dysphagia with G-tube, chronic kidney disease III and history of right nephrectomy and left re nal nephrolithiasis, bipolar disorder Plan: off Abx now, ID following Cr 1.52,K 6.0- Kayexalate given for today Will follow up Consultation Date/Type/Reason Admit Date/Time Aug 15, 2018 at 02:30 Initial Consult Date 08/16/18 Type of Consult NEPHROLOGY Requesting Provider: JOSÉ ANTONIO MIRZA MD Date/Time of Note DATE: 08/25/18 TIME: 08:47 Exam/Review of Systems Exam Vitals Vital Signs Date Temp Pulse Resp B/P (MAP) Pulse Ox O2 O2 Flow FiO2 Time Delivery Rate 08/25/18 86 20 100 40 07:47 08/25/18 98.0 97/71 (80) Mechanical 07:12 Ventilator Intake and Output 08/24/18 08/24/18 08/25/18 1515:00 23:00 07:00 IntakeIntake Total 1385 ml 1420 ml OutputOutput Total 1450 ml 1550 ml BalanceBalance -65 ml -130 ml Results Result Diagram: 08/25/18 0629 08/25/18 0629 Results 24hrs Laboratory Tests Test 08/25/18 06:29 White Blood Count 3.9 #L Red Blood Count 3.15 L Hemoglobin 8.9 L Hematocrit 30.6 L Mean Corpuscular Volume 97.1 Mean Corpuscular Hemoglobin 28.3 L Mean Corpuscular Hemoglobin Concent 29.1 L Red Cell Distribution Width 18.5 H Platelet Count 150 Mean Platelet Volume 12.8 H Immature Granulocytes % 0.500 H Neutrophils % 70.8 Lymphocytes % 16.0 Monocytes % 6.1 Eosinophils % 5.8 Basophils % 0.8 Nucleated Red Blood Cells % 0.0 Immature Granulocytes # 0.020 Neutrophils # 2.8 Lymphocytes # 0.6 L Monocytes # 0.2 L Eosinophils # 0.2 Basophils # 0.0 Nucleated Red Blood Cells # 0.0 Sodium Level 142 Potassium Level 6.0 H Chloride Level 110 Carbon Dioxide Level 25 Anion Gap 7 Blood Urea Nitrogen 54 H Creatinine 1.52 H Est Glomerular Filtrat Rate mL/min 51 L Glucose Level 98 Calcium Level 9.0 Medications Medication Current Medications Acetaminophen/ Hydrocodone Bitart ([place] (5/325)) 1 tab Q4H PRN GTB PAIN LEVEL 7-10 Last administered on 08/22/18 05:35; Admin Dose 1 TAB; Start 08/15/18 at 03:30 Diphenhydramine HCl (Benadryl) 25 mg HS PRN PO INSOMNIA Last administered on 08/20/18 20:55; Admin Dose 25 MG; Start 08/15/18 at 03:30 Ondansetron HCl (Zofran Inj) 4 mg Q4H PRN IV NAUSEA AND/OR VOMITING; Start 08/15/18 at 03:30 Levetiracetam (Keppra Liquid) 500 mg BID GTB Last administered on 08/24/18 21:08; Admin Dose 500 MG; Start 08/15/18 at 09:00 Quetiapine Fumarate (Seroquel) 75 mg BID GTB Last administered on 08/24/18 21:08; Admin Dose 75 MG; Start 08/15/18 at 09:00 Polyethylene Glycol (Miralax) 17 gm DAILY GTB Last administered on 08/24/18 14:56; Admin Dose 17 GM; Start 08/15/18 at 09:00 Enoxaparin Sodium (Lovenox) 40 mg DAILY SC Last administered on 08/24/18 11:54; Admin Dose 40 MG; Start 08/15/18 at 09:00 Multivitamins/ Minerals (Theragran-M) 1 tab DAILY GTB Last administered on 08/24/18 11:34; Admin Dose 1 TAB; Start 08/15/18 at 09:00 Ascorbic Acid (Vitamin C) 250 mg DAILY GTB Last administered on 08/24/18 11:34; Admin Dose 250 MG; Start 08/15/18 at 09:00 Zinc Sulfate (Zinc Sulfate) 220 mg DAILY GTB Last administered on 08/24/18 11:35; Admin Dose 220 MG; Start 08/15/18 at 09:00 Gabapentin (Neurontin Liquid) 300 mg BID GTB Last administered on 08/24/18 21:08; Admin Dose 300 MG; Start 08/15/18 at 09:00 Acetaminophen (Tylenol Liquid) 650 mg Q6 PRN GTB MILD PAIN(1-3)OR ELEVATED TEMP; Start 08/15/18 at 03:30 Hydromorphone HCl (Dilaudid) 0.5 mg Q3H PRN IV SEVERE PAIN LEVEL 7-10 Last administered on 08/25/18 03:26; Admin Dose 0.5 MG; Start 08/15/18 at 03:30 Albuterol (Ventolin Hfa) 4 puff Q6H RESP THERAPY INH Last administered on 08/25/18 07:49; Admin Dose 4 PUFF; Start 08/15/18 at 08:00 Ipratropium [place] (Atrovent Hfa) 4 puff Q6H RESP THERAPY INH Last adminis tered on 08/25/18 07:49; Admin Dose 4 PUFF; Start 08/15/18 at 08:00 Sodium Hypochlorite (Dakins Diluted (1/40)) 1 applic BID TP Last administered on 08/24/18 21:09; Admin Dose 1 APPLIC; Start 08/15/18 at 21:00 Famotidine (Pepcid) 20 mg DAILY GTB Last administered on 08/24/18 11:34; Admin Dose 20 MG; Start 08/16/18 at 09:00 Voriconazole (Vfend) 200 mg BID PO Last administered on 08/24/18 21:08; Admin Dose 200 MG; Start 08/20/18 at 15:00 TIARA CISNEROS MD Aug 25, 2018 08:47
[2018-08-25] MEDS: DAKINS 0.0125%(1/40) 473 ML SOLUTION TP SCH ×2 (09:00→21:27)
[2018-08-25] MEDS: ZINC SULFATE 220 MG CAP GTB SCH (09:26)
[2018-08-25] MEDS: ASCORBIC ACID 250 MG TAB GTB SCH (09:26)
[2018-08-25] MEDS: MULTIVITAMINS/MINERALS TAB GTB SCH (09:26)
[2018-08-25] MEDS: LEVETIRACETAM (100 MG/ML) 5ML CUP GTB SCH ×2 (09:26→21:26)
[2018-08-25] MEDS: POLYETHYLENE GLYCOL 17 GM PACKET GTB SCH (09:26)
[2018-08-25] MEDS: FAMOTIDINE 20 MG TAB GTB SCH (09:26)
[2018-08-25] MEDS: QUETIAPINE 25 MG TAB GTB SCH ×2 (09:26→21:26)
[2018-08-25] MEDS: VORICONAZOLE 200 MG TAB PO SCH ×2 (09:26→21:27)
[2018-08-25] MEDS: GABAPENTIN (50 MG/ML PO SYG) GTB SCH ×2 (09:31→21:26)
[2018-08-25] MEDS: ENOXAPARIN 40 MG/0.4 ML SYG SC SCH (09:35)
[2018-08-25] MEDS: BALSAM PERU/CASTOR OIL 60 GM TUBE TOP SCH ×2 (10:19→21:27)
--- NOTE | 2018-08-25 11:47 | PN ---
Date/Time of Note Date/Time of Note DATE: 08/25/18 TIME: 11:44 Assessment/Plan VTE Prophylaxis Risk score (from Ns)>0 risk: 9 SCD applied (from [facility] [place]): No SCD contraindicated: other Pharmacological prophylaxis: other Pharm contraindication: other Lines/Catheters IV Catheter Type (from [facility]): PICC Line Central line still needed: Yes Urinary Cath still in place: Yes Reason Cath still needed: pres ulcer contaminated by urine Assessment/Plan Assessment/Plan - Hyperkalemia- K 6.0 - nephro follows - kayexalate- 60 gm GT x 1 - am BMP - S/p sepsis secondary to pneumonia, continue antibiotics per ID recommendations. - Large tracheal opening, s/p evaluation by Dr Woodruff in ENT consultation with r ecommendation for free flap closure. Patient was evaluated at [facility] [place] [place] [employer] refused to have surgery, not cooperative with care. - Ventilator dependent respiratory failure, continue pulmonary toilet and bronchodilators. Dr Ames is following in pulmonology consultation. - Acute on chronic renal failure. Continue to monitor BUN and creatinine. - Anemia of chronic disease. Continue Epogen. - Neurogenic bladder with suprapubic catheter. - Dysphagia with gastrostomy tube. - Seizures, continue Keppra - Multiple decubitus ulcers present on admission. - Cervical spine injury with paraplegia. - Bipolar disorder with psychosis. - Hx of right nephrectomy - Hx of left renal nephrolithiasis, hx of lithotripsy with insertion and subsequent removal of ureteral JJ stent. Further recommendations based on clinical course. Plan of care discussed with Dr. Barreto. Result Diagram: 08/25/18 0629 08/25/18 0629 Results 24hrs Laboratory Tests Test 08/25/18 06:29 White Blood Count 3.9 #L Red Blood Count 3.15 L Hemoglobin 8.9 L Hematocrit 30.6 L Mean Corpuscular Volume 97.1 Mean Corpuscular Hemoglobin 28.3 L Mean Corpuscular Hemoglobin Concent 29.1 L Red Cell Distribution Width 18.5 H Platelet Count 150 Mean Platelet Volume 12.8 H Immature Granulocytes % 0.500 H Neutrophils % 70.8 Lymphocytes % 16.0 Monocytes % 6.1 Eosinophils % 5.8 Basophils % 0.8 Nucleated Red Blood Cells % 0.0 Immature Granulocytes # 0.020 Neutrophils # 2.8 Lymphocytes # 0.6 L Monocytes # 0.2 L Eosinophils # 0.2 Basophils # 0.0 Nucleated Red Blood Cells # 0.0 Sodium Level 142 Potassium Level 6.0 H Chloride Level 110 Carbon Dioxide Level 25 Anion Gap 7 Blood Urea Nitrogen 54 H Creatinine 1.52 H Est Glomerular Filtrat Rate mL/min 51 L Glucose Level 98 Calcium Level 9.0 Exam/Review of Systems Exam Vitals Vital Signs Date Temp Pulse Resp B/P (MAP) Pulse Ox O2 O2 Flow FiO2 Time Delivery Rate 08/25/18 98.3 21 97/70 (79) 97 Mechanical 11:12 Ventilator 08/25/18 82 40 11:02 Intake and Output 08/24/18 08/24/18 08/25/18 1515:00 23:00 07:00 IntakeIntake Total 1385 ml 1420 ml OutputOutput Total 1450 ml 1550 ml BalanceBalance -65 ml -130 ml Constitutional: alert, non-verbal, frail Psych: nl mood/affect Eyes: nl lids, nl sclera ENMT: nl external ears & nose Neck: non-tender, other (TRACH INTACT) Respiratory: clear to auscultation Cardiovascular: nl pulses, other (s1s2) Gastrointestinal: soft, non-tender, other (gt inatct) Musculoskeletal: muscle weakness, range of motion Extremities: normal pulses Neurological: other (alert) Skin: other (multi decubs) Results Results 24hrs Laboratory Tests Test 08/25/18 06:29 White Blood Count 3.9 #L Red Blood Count 3.15 L Hemoglobin 8.9 L Hematocrit 30.6 L Mean Corpuscular Volume 97.1 Mean Corpuscular Hemoglobin 28.3 L Mean Corpuscular Hemoglobin Concent 29.1 L Red Cell Distribution Width 18.5 H Platelet Count 150 Mean Platelet Volume 12.8 H Immature Granulocytes % 0.500 H Neutrophils % 70.8 Lymphocytes % 16.0 Monocytes % 6.1 Eosinophils % 5.8 Basophils % 0.8 Nucleated Red Blood Cells % 0.0 Immature Granulocytes # 0.020 Neutrophils # 2.8 Lymphocytes # 0.6 L Monocytes # 0.2 L Eosinophils # 0.2 Basophils # 0.0 Nucleated Red Blood Cells # 0.0 Sodium Level 142 Potassium Level 6.0 H Chloride Level 110 Carbon Dioxide Level 25 Anion Gap 7 Blood Urea Nitrogen 54 H Creatinine 1.52 H Est Glomerular Filtrat Rate mL/min 51 L Glucose Level 98 Calcium Level 9.0 Medications Medication Current Medications Acetaminophen/ Hydrocodone Bitart ([place] (5/325)) 1 tab Q4H PRN GTB PAIN LEVEL 7-10 Last administered on 08/22/18 05:35; Admin Dose 1 TAB; Start 08/15/18 at 03:30 Diphenhydramine HCl (Benadryl) 25 mg HS PRN PO INSOMNIA Last administered on 08/20/18 20:55; Admin Dose 25 MG; Start 08/15/18 at 03:30 Ondansetron HCl (Zofran Inj) 4 mg Q4H PRN IV NAUSEA AND/OR VOMITING; Start 08/15/18 at 03:30 Levetiracetam (Keppra Liquid) 500 mg BID GTB Last administered on 08/25/18 09:26; Admin Dose 500 MG; Start 08/15/18 at 09:00 Quetiapine Fumarate (Seroquel) 75 mg BID GTB Last administered on 08/25/18 09:26; Admin Dose 75 MG; Start 08/15/18 at 09:00 Polyethylene Glycol (Miralax) 17 gm DAILY GTB Last administered on 08/25/18 09:26; Admin Dose 17 GM; Start 08/15/18 at 09:00 Enoxaparin Sodium (Lovenox) 40 mg DAILY SC Last administered on 08/25/18 09:35; Admin Dose 40 MG; Start 08/15/18 at 09:00 Multivitamins/ Minerals (Theragran-M) 1 tab DAILY GTB Last administered on 09:26; Admin Dose 1 TAB; Start 08/15/18 at 09:00 Ascorbic Acid (Vitamin C) 250 mg DAILY GTB Last administered on 08/25/18 09:26; Admin Dose 250 MG; Start 08/15/18 at 09:00 Zinc Sulfate (Zinc Sulfate) 220 mg DAILY GTB Last administered on 08/25/18 09:26; Admin Dose 220 MG; Start 08/15/18 at 09:00 Gabapentin (Neurontin Liquid) 300 mg BID GTB Last administered on 08/25/18 09:31; Admin Dose 300 MG; Start 08/15/18 at 09:00 Acetaminophen (Tylenol Liquid) 650 mg Q6 PRN GTB MILD PAIN(1-3)OR ELEVATED TEMP; Start 08/15/18 at 03:30 Hydromorphone HCl (Dilaudid) 0.5 mg Q3H PRN IV SEVERE PAIN LEVEL 7-10 Last administered on 08/25/18 10:20; Admin Dose 0.5 MG; Start 08/15/18 at 03:30 Albuterol (Ventolin Hfa) 4 puff Q6H RESP THERAPY INH Last administered on 08/25/18 07:49; Admin Dose 4 PUFF; Start 08/15/18 at 08:00 Ipratropium [place] (Atrovent Hfa) 4 puff Q6H RESP THERAPY INH Last administered on 08/25/18 07:49; Admin Dose 4 PUFF; Start 08/15/18 at 08:00 Sodium Hypochlorite (Dakins Diluted (40)) 1 applic BID TP Last administered on 08/24/18 21:09; Admin Dose 1 APPLIC; Start 08/15/18 at 21:00 Famotidine (Pepcid) 20 mg DAILY GTB Last administered on 08/25/18 09:26; Admin Dose 20 MG; Start 08/16/18 at 09:00 Voriconazole (Vfend) 200 mg BID PO Last administered on 08/25/18 09:26; Admin Dose 200 MG; Start 08/20/18 at 15:00 NAE VELAZCO Aug 25, 2018 11:47
--- NOTE | 2018-08-25 12:04 | CONS ---
Assessment/Plan Assessment/Plan Hospital Course (Demo Recall) ID PROGRESS NOTE CURRENT ABX: DAY # =>Vfend s/p Merrem 08/25/18 0629 08/25/18 0629 24H INTERVAL SUMMARY * Suprapubic cath growing GNR -- will Start Merrem * Sleeping, VSS, looks comfortable, contracted extremities DIAGNOSTIC IMAGING * 08/23/18 CXR: 1. Tracheostomy and right PICC line remain in radiographically satisfactory position.2. Enlarged cardiac silhouette. Mild diffuse bilateral interstitial prominence.3. Right basilar opacification reflecting pleural effusion as well as atelectasis/infiltrates. 4. Probable layering left pleural effusion MICRO * 08/24/18 URINE CULTURE Preliminary Organism 1 GRAM NEGATIVE ANGÉLICA COLONY COUNT 50,000 - 60,000 CFU/ml * 08/16/18 BCx (-) * 08/16/18 Urine Cx: URINE CULTURE Final Organism 1 ALONA SPECIES, NOT ALBICANS COLONY COUNT >100,000 CFU/ml PHYSICAL EXAMINATION: GENERAL: VSS, NAD HEENT: AT, NC, NECK: Supple, CHEST: Rise symmetrical HEART: Pulse RRR ABDOMEN: Benign EXTREMITIES: Warm, dry SKIN: No rash, no diaphoresis ID ASSESSMENT 43 yo M admit with: 1. Hypotension, rule out sepsis 2. Recurrent UTI==> yeast, poss colonized 3. Chronic respiratory failure 4. Acute on chronic kidney disease 5. Incomplete quadriplegia 6. Pancytopenia 7. History of left breast nephrectomy 8. Multiple chronic decubitus ulcers 10. History of MRSA colonization ABX ALLERGIES: KNDA INVASIVES: PIV CURRENT ABX: DAY # =>Vfend s/p Merrem ID RECOMMENDATIONS/PLAN: 1. Suprapubic cath growing GNR -- will RE-Start Merrem . Consultation Date/Type/Reason Admit Date/Time Aug 15, 2018 at 02:30 Initial Consult Date 08/16/18 Requesting Provider: JOSÉ ANTONIO MIRZA MD Date/Time of Note DATE: 08/25/18 TIME: 12:03 Exam/Review of Systems Exam Vitals Vital Signs Date Temp Pulse Resp B/P (MAP) Pulse Ox O2 O2 Flow FiO2 Time Delivery Rate 08/25/18 98.3 21 97/70 (79) 97 Mechanical 11:12 Ventilator 08/25/18 82 40 11:02 Intake and Output 08/24/18 08/24/1819 1515:00 23:00 07:00 IntakeIntake Total 1385 ml 1420 ml OutputOutput Total 1450 ml 1550 ml BalanceBalance -65 ml -130 ml Results Result Diagram: 08/25/18 0629 08/25/18 0629 Results 24hrs Laboratory Tests Test 08/25/18 06:29 White Blood Count 3.9 #L Red Blood Count 3.15 L Hemoglobin 8.9 L Hematocrit 30.6 L Mean Corpuscular Volume 97.1 Mean Corpuscular Hemoglobin 28.3 L Mean Corpuscular Hemoglobin Concent 29.1 L Red Cell Distribution Width 18.5 H Platelet Count 150 Mean Platelet Volume 12.8 H Immature Granulocytes % 0.500 H Neutrophils % 70.8 Lymphocytes % 16.0 Monocytes % 6.1 Eosinophils % 5.8 Basophils % 0.8 Nucleated Red Blood Cells % 0.0 Immature Granulocytes # 0.020 Neutrophils # 2.8 Lymphocytes # 0.6 L Monocytes # 0.2 L Eosinophils # 0.2 Basophils # 0.0 Nucleated Red Blood Cells # 0.0 Sodium Level 142 Potassium Level 6.0 H Chloride Level 110 Carbon Dioxide Level 25 Anion Gap 7 Blood Urea Nitrogen 54 H Creatinine 1.52 H Est Glomerular Filtrat Rate mL/min 51 L Glucose Level 98 Calcium Level 9.0 Medications Medication Current Medications Acetaminophen/ Hydrocodone Bitart ([place] (5/325)) 1 tab Q4H PRN GTB PAIN LEVEL 7-10 Last administered on 08/22/18at 05:35; Admin Dose 1 TAB; Start 08/15/18 at 03:30 Diphenhydramine HCl (Benadryl) 25 mg HS PRN PO INSOMNIA Last administered on 08/20/18at 20:55; Admin Dose 25 MG; Start 08/15/18 at 03:30 Ondansetron HCl (Zofran Inj) 4 mg Q4H PRN IV NAUSEA AND/OR VOMITING; Start 08/15/18 at 03:30 Levetiracetam (Keppra Liquid) 500 mg BID GTB Last administered on 08/25/18at 09:26; Admin Dose 500 MG; Start 08/15/18 at 09:00 Quetiapine Fumarate (Seroquel) 75 mg BID GTB Last administered on 08/25/18at 09:26; Admin Dose 75 MG; Start 08/15/18 at 09:00 Polyethylene Glycol (Miralax) 17 gm DAILY GTB Last administered on 08/25/18 09:26; Admin Dose 17 GM; Start 08/15/18 at 09:00 Enoxaparin Sodium (Lovenox) 40 mg DAILY SC Last administered on 08/25/18 09:35; Admin Dose 40 MG; Start 08/15/18 at 09:00 Multivitamins/ Minerals (Theragran-M) 1 tab DAILY GTB Last administered on 08/25/18 09:26; Admin Dose 1 TAB; Start 08/15/18 at 09:00 Ascorbic Acid (Vitamin C) 250 mg DAILY GTB Last administered on 08/25/18 09:26; Admin Dose 250 MG; Start 08/15/18 at 09:00 Zinc Sulfate (Zinc Sulfate) 220 mg DAILY GTB Last administered on 08/25/18 09:26; Admin Dose 220 MG; Start 08/15/18 at 09:00 Gabapentin (Neurontin Liquid) 300 mg BID GTB Last administered on 08/25/18 09:31; Admin Dose 300 MG; Start 08/15/18 at 09:00 Acetaminophen (Tylenol Liquid) 650 mg Q6 PRN GTB MILD PAIN(1-3)OR ELEVATED TEMP; Start 08/15/18 at 03:30 Hydromorphone HCl (Dilaudid) 0.5 mg Q3H PRN IV SEVERE PAIN LEVEL 7-10 Last administered on 08/25/18 10:20; Admin Dose 0.5 MG; Start 08/15/18 at 03:30 Albuterol (Ventolin Hfa) 4 puff Q6H RESP THERAPY INH Last administered on 08/25/18 07:49; Admin Dose 4 PUFF; Start 08/15/18 at 08:00 Ipratropium [place] (Atrovent Hfa) 4 puff Q6H RESP THERAPY INH Last administered on 08/25/18 07:49; Admin Dose 4 PUFF; Start 08/15/18 at 08:00 Sodium Hypochlorite (Dakins Diluted ()) 1 applic BID TP Last administered on 08/24/18 21:09; Admin Dose 1 APPLIC; Start 08/15/18 at 21:00 Famotidine (Pepcid) 20 mg DAILY GTB Last administered on 08/25/18at 09:26; Admin Dose 20 MG; Start 08/16/18 at 09:00 Voriconazole (Vfend) 200 mg BID PO Last administered on 08/25/18at 09:26; Admin Dose 200 MG; Start 08/20/18 at 15:00 KELSI CERDA NP Aug 25, 2018 12:04
[2018-08-25] MEDS: MEROPENEM 1 GM/50ML(PMX) 50 ML IVPB SCH ×2 (16:50→21:27)
[2018-08-26] VITALS (18 sets, daily range): BP systolic 78–98; BP diastolic 54–75; PULSE 63–87; RESP 20–29
[2018-08-26] MEDS: HYDROmorphONE 0.5 MG/0.5 ML SYG IV PRN ×5 (00:42→21:19)
[2018-08-26] MEDS: IPRATROPIUM (HFA) 12.9 GM INHALER INH SCH ×4 (02:24→20:36)
[2018-08-26] MEDS: ALBUTEROL HFA 8 GM INHALER INH SCH ×4 (02:24→20:36)
[2018-08-26] MEDS: GABAPENTIN (50 MG/ML PO SYG) GTB SCH ×2 (09:07→21:18)
[2018-08-26] MEDS: LEVETIRACETAM (100 MG/ML) 5ML CUP GTB SCH ×2 (09:07→21:18)
[2018-08-26] MEDS: POLYETHYLENE GLYCOL 17 GM PACKET GTB SCH (09:07)
[2018-08-26] MEDS: VORICONAZOLE 200 MG TAB PO SCH ×2 (09:07→21:19)
[2018-08-26] MEDS: FAMOTIDINE 20 MG TAB GTB SCH (09:07)
[2018-08-26] MEDS: MULTIVITAMINS/MINERALS TAB GTB SCH (09:07)
[2018-08-26] MEDS: BALSAM PERU/CASTOR OIL 60 GM TUBE TOP SCH ×2 (09:07→21:20)
[2018-08-26] MEDS: ASCORBIC ACID 250 MG TAB GTB SCH (09:08)
[2018-08-26] MEDS: ZINC SULFATE 220 MG CAP GTB SCH (09:08)
[2018-08-26] MEDS: QUETIAPINE 25 MG TAB GTB SCH ×3 (09:08→23:03)
[2018-08-26] MEDS: ENOXAPARIN 40 MG/0.4 ML SYG SC SCH (09:15)
[2018-08-26] MEDS: MEROPENEM 1 GM/50ML(PMX) 50 ML IVPB SCH ×2 (09:20→21:19)
--- NOTE | 2018-08-26 09:34 | PN ---
Date/Time of Note Date/Time of Note DATE: 08/26/18 TIME: 09:30 Assessment/Plan VTE Prophylaxis Risk score (from Ns)>0 risk: 9 SCD applied (from Ns): No SCD contraindicated: other Pharmacological prophylaxis: other Pharm contraindication: other Lines/Catheters IV Catheter Type (from Nrsg): PICC Line Central line still needed: Yes Urinary Cath still in place: Yes Reason Cath still needed: urinary retention Assessment/Plan Assessment/Plan - Hyperkalemia- K 6.0 as of yesterday; will check BMP - S/p sepsis secondary to pneumonia, continue antibiotics per ID recommendations. - Large tracheal opening, s/p evaluation by Dr Woodruff in ENT consultation with recommendation for free flap closure. Patient was evaluated at [facility] refused to have surgery, not cooperative with care. - Ventilator dependent respiratory failure, continue pulmonary toilet and bronchodilators. Dr Ames is following in pulmonology consultation. - Acute on chronic renal failure. Continue to monitor BUN and creatinine. - Anemia of chronic disease. Continue Epogen. - Neurogenic bladder with suprapubic catheter. - Dysphagia with gastrostomy tube. - Seizures, continue Keppra - Multiple decubitus ulcers present on admission. - Cervical spine injury with paraplegia. - Bipolar disorder with psychosis. - Hx of right nephrectomy - Hx of left renal nephrolithiasis, hx of lithotripsy with insertion and subsequent removal of ureteral JJ stent. Further recommendations based on clinical course. Plan of care discussed with Dr. Barreto. Result Diagram: 08/25/1829 08/25/18628 Subjective 24 Hr Interval Summary Free Text/Dictation - Hyperkalemia- K 6.0 as of yesterday; will check BMP NO EVENTS LAST NIGHT Subjective hx not possible: pt non-verbal Constitutional: requiring O2 Exam/Review of Systems Exam Vitals Vital Signs Date Temp Pulse Resp B/P (MAP) Pulse Ox O2 O2 Flow FiO2 Time Delivery Rate 08/26/18 88 26 94 40 09:22 08/26/18 98.1 86/64 (71) 07:54 08/25/18 Mechanical 15:16 Ventilator Intake and Output 08/25/18 08/25/18 08/26/18 1515:00 23:00 07:00 IntakeIntake Total 1400 ml OutputOutput Total 1000 ml 1250 ml BalanceBalance 400 ml -1250 ml Constitutional: non-verbal, frail Psych: nl mood/affect Eyes: nl lids, nl sclera ENMT: nl external ears & nose Neck: other (trach intact) Respiratory: clear to auscultation Cardiovascular: nl pulses, other (s1s3) Gastrointestinal: soft, other (gt intact) Musculoskeletal: muscle weakness Extremities: normal pulses Neurological: lethargic Medications Medication Current Medications Acetaminophen/ Hydrocodone Bitart ([place] (5/325)) 1 tab Q4H PRN GTB PAIN LEVEL 7-10 Last administered on 08/22/18 05:35; Admin Dose 1 TAB; Start 08/15/18 at 03:30 Diphenhydramine HCl (Benadryl) 25 mg HS PRN PO INSOMNIA Last administered on 08/20/18 20:55; Admin Dose 25 MG; Start 08/15/18 at 03:30 Ondansetron HCl (Zofran Inj) 4 mg Q4H PRN IV NAUSEA AND/OR VOMITING; Start 08/15/18 at 03:30 Levetiracetam (Keppra Liquid) 500 mg BID GTB Last administered on 08/26/18 09:07; Admin Dose 500 MG; Start 08/15/18 at 09:00 Quetiapine Fumarate (Seroquel) 75 mg BID GTB Last administered on 08/26/18 09:08; Admin Dose 75 MG; Start 08/15/18 at 09:00 Polyethylene Glycol (Miralax) 17 gm DAILY GTB Last administered on 08/26/18 09:07; Admin Dose 17 GM; Start 08/15/18 at 09:00 Enoxaparin Sodium (Lovenox) 40 mg DAILY SC Last administered on 08/26/18 09:15; Admin Dose 40 MG; Start 08/15/18 at 09:00 Multivitamins/ Minerals (Theragran-M) 1 tab DAILY GTB Last administered on 08/26/18 09:07; Admin Dose 1 TAB; Start 08/15/18 at 09:00 Ascorbic Acid (Vitamin C) 250 mg DAILY GTB Last administered on 08/26/18 09:08; Admin Dose 250 MG; Start 08/15/18 at 09:00 Zinc Sulfate (Zinc Sulfate) 220 mg DAILY GTB Last administered on 08/26/18 09:08; Admin Dose 220 MG; Start 08/15/18 at 09:00 Gabapentin (Neurontin Liquid) 300 mg BID GTB Last administered on 08/26/18 09:07; Admin Dose 300 MG; Start 08/15/18 at 09:00 Acetaminophen (Tylenol Liquid) 650 mg Q6 PRN GTB MILD PAIN(1-3)OR ELEVATED TEMP; Start 08/15/18 at 03:30 Hydromorphone HCl (Dilaudid) 0.5 mg Q3H PRN IV SEVERE PAIN LEVEL 7-10 Last administered on 08/26/18 09:06; Admin Dose 0.5 MG; Start 08/15/18 at 03:30 Albuterol (Ventolin Hfa) 4 puff Q6H RESP THERAPY INH Last administered on 08/26/18 08:26; Admin Dose 4 PUFF; Start 08/15/18 at 08:00 Ipratropium [place] (Atrovent Hfa) 4 puff Q6H RESP THERAPY INH Last administered on 08/26/18 08:25; Admin Dose 4 PUFF; Start 08/15/18 at 08:00 Sodium Hypochlorite (Dakins Diluted (1/40)) 1 applic BID TP Last administered on 08/25/18 21:27; Admin Dose 1 APPLIC; Start 08/15/18 at 21:00 Famotidine (Pepcid) 20 mg DAILY GTB Last administered on 08/26/18 09:07; Admin Dose 20 MG; Start 08/16/18 at 09:00 Voriconazole (Vfend) 200 mg BID PO Last administered on 08/26/18 09:07; Admin Dose 200 MG; Start 08/20/18 at 15:00 Meropenem/Sodium Chloride 50 ml @ 100 mls/hr Q12 IVPB Last administered on 08/26/18 09:20; Admin Dose 100 MLS/HR; Start 08/25/18 at 15:00 NAE VELAZCO Aug 26, 2018 09:34
--- NOTE | 2018-08-26 13:16 | CONS ---
Assessment/Plan Assessment/Plan Hospital Course (Demo Recall) ID PROGRESS NOTE CURRENT ABX: DAY # =>Vfend + Merrem #2 s/p Merrem 08/26/18 1038 08/26/18 1038 24H INTERVAL SUMMARY * Suprapubic cath growing GNR -- on Merrem * Patient awakens --- otherwise lethargic with Dilaudid pain med onboard == no other new issues * Prefers to sleeping, VSS, looks comfortable, contracted extremities DIAGNOSTIC IMAGING * 08/23/18 CXR: 1. Tracheostomy and right PICC line remain in radiographically satisfactory position.2. Enlarged cardiac silhouette. Mild diffuse bilateral interstitial prominence.3. Right basilar opacification reflecting pleural effusion as well as atelectasis/infiltrates. 4. Probable layering left pleural effusion MICRO * 08/24/18 URINE CULTURE URINE CULTURE Preliminary Organism 1 PSEUDOMONAS SPECIES COLONY COUNT 50,000 - 60,000 CFU/ml Organism 2 GRAM NEGATIVE ANGÉLICA COLONY COUNT 20,000 - 30,000 CFU/ml * 08/16/18 BCx (-) * 08/16/18 Urine Cx: URINE CULTURE Final Organism 1 ALONA SPECIES, NOT ALBICANS COLONY COUNT >100,000 CFU/ml PHYSICAL EXAMINATION: GENERAL: VSS, NAD HEENT: AT, NC, NECK: Supple, CHEST: Rise symmetrical HEART: Pulse RRR ABDOMEN: Benign EXTREMITIES: Warm, dry SKIN: No rash, no diaphoresis ID ASSESSMENT 43 yo M admit with: 1. Hypotension, rule out sepsis 2. Recurrent UTI==> yeast, poss colonized 3. Chronic respiratory failure * Large tracheal opening, s/p evaluation by Dr Woodruff in ENT consultation with recommendation for free flap closure. Patient was evaluated at [facility] medicine refused to have surgery, not cooperative with care. 4. Acute on chronic kidney disease 5. Incomplete quadriplegia 6. Pancytopenia 7. History of left nephrectomy 8. Multiple chronic decubitus ulcers 10. History of MRSA colonization ABX ALLERGIES: KNDA INVASIVES: PIV CURRENT ABX: DAY # =>Vfend + Merrem #2 s/p Merrem ID RECOMMENDATIONS/PLAN: 1. Suprapubic cath growing GNR -- RE-Started Merrem . Consultation Date/Type/Reason Admit Date/Time Aug 15, 2018 at 02:30 Initial Consult Date 08/16/18 Requesting Provider: JOSÉ ANTONIO MIRZA MD Date/Time of Note DATE: 08/26/18 TIME: 13:12 Exam/Review of Systems Exam Vitals Vital Signs Date Temp Pulse Resp B/P (MAP) Pulse Ox O2 O2 Flow FiO2 Time Delivery Rate 08/26/18 90 29 92 50 13:05 08/26/18 98.0 80/54 (63) 11:58 08/25/18 Mechanical 15:16 Ventilator Intake and Output 08/25/18 08/25/18 08/26/18 1515:00 23:00 07:00 IntakeIntake Total 1400 ml OutputOutput Total 1000 ml 1250 ml BalanceBalance 400 ml -1250 ml Results Result Diagram: 08/26/18 1038 08/26/18 1038 Results 24hrs Laboratory Tests Test 08/26/18 10:38 White Blood Count 8.2 # Red Blood Count 2.84 L Hemoglobin 7.9 L Hematocrit 27.5 L Mean Corpuscular Volume 96.8 Mean Corpuscular Hemoglobin 27.8 L Mean Corpuscular Hemoglobin Concent 28.7 L Red Cell Distribution Width 18.1 H Platelet Count 158 Mean Platelet Volume 12.2 H Immature Granulocytes % 0.400 Neutrophils % 86.1 H Lymphocytes % 6.1 L Monocytes % 4.4 Eosinophils % 2.6 Basophils % 0.4 Nucleated Red Blood Cells % 0.0 Immature Granulocytes # 0.030 Neutrophils # 7.1 Lymphocytes # 0.5 L Monocytes # 0.4 Eosinophils # 0.2 Basophils # 0.0 Nucleated Red Blood Cells # 0.0 Sodium Level 138 Potassium Level 6.0 H Chloride Level 107 Carbon Dioxide Level 24 Anion Gap 7 Blood Urea Nitrogen 62 H Creatinine 1.54 H Est Glomerular Filtrat Rate mL/min 50 L Glucose Level 96 Calcium Level 9.1 Medications Medication Current Medications Acetaminophen/ Hydrocodone Bitart ([place] (5/325)) 1 tab Q4H PRN GTB PAIN LEVEL 7-10 Last administered on 08/22/18at 05:35; Admin Dose 1 TAB; Start 08/15/18 at 03:30 Diphenhydramine HCl (Benadryl) 25 mg HS PRN PO INSOMNIA Last administered on 08/20/18at 20:55; Admin Dose 25 MG; Start 08/15/18 at 03:30 Ondansetron HCl (Zofran Inj) 4 mg Q4H PRN IV NAUSEA AND/OR VOMITING; Start 08/15/18 at 03:30 Levetiracetam (Keppra Liquid) 500 mg BID GTB Last administered on 08/26/18 09:07; Admin Dose 500 MG; Start 08/15/18 at 09:00 Quetiapine Fumarate (Seroquel) 75 mg BID GTB Last administered on 08/26/18 09:08; Admin Dose 75 MG; Start 08/15/18 at 09:00 Polyethylene Glycol (Miralax) 17 gm DAILY GTB Last administered on 08/26/18 09:07; Admin Dose 17 GM; Start 08/15/18 at 09:00 Enoxaparin Sodium (Lovenox) 40 mg DAILY SC Last administered on 08/26/18 09:15; Admin Dose 40 MG; Start 08/15/18 at 09:00 Multivitamins/ Minerals (Theragran-M) 1 tab DAILY GTB Last administered on 08/26/18 09:07; Admin Dose 1 TAB; Start 08/15/18 at 09:00 Ascorbic Acid (Vitamin C) 250 mg DAILY GTB Last administered on 08/26/18 09:08; Admin Dose 250 MG; Start 08/15/18 at 09:00 Zinc Sulfate (Zinc Sulfate) 220 mg DAILY GTB Last administered on 08/26/18 09:08; Admin Dose 220 MG; Start 08/15/18 at 09:00 Gabapentin (Neurontin Liquid) 300 mg BID GTB Last administered on 08/26/18 09:07; Admin Dose 300 MG; Start 08/15/18 at 09:00 Acetaminophen (Tylenol Liquid) 650 mg Q6 PRN GTB MILD PAIN(1-3)OR ELEVATED TEMP; Start 08/15/18 at 03:30 Hydromorphone HCl (Dilaudid) 0.5 mg Q3H PRN IV SEVERE PAIN LEVEL 7-10 Last administered on 08/26/18 09:06; Admin Dose 0.5 MG; Start 08/15/18 at 03:30 Albuterol (Ventolin Hfa) 4 puff Q6H RESP THERAPY INH Last administered on 08/26/18 08:26; Admin Dose 4 PUFF; Start 08/15/18 at 08:00 Ipratropium [place] (Atrovent Hfa) 4 puff Q6H RESP THERAPY INH Last administered on 08/26/18 08:25; Admin Dose 4 PUFF; Start 08/15/18 at 08:00 Sodium Hypochlorite (Dakins Diluted ()) 1 applic BID TP Last administered on 08/25/18 21:27; Admin Dose 1 APPLIC; Start 08/15/18 at 21:00 Famotidine (Pepcid) 20 mg DAILY GTB Last administered on 08/26/18 09:07; Admin Dose 20 MG; Start 08/16/18 at 09:00 Voriconazole (Vfend) 200 mg BID PO Last administered on 08/26/18 09:07; Admin Dose 200 MG; Start 08/20/18 at 15:00 Meropenem/Sodium Chloride 50 ml @ 100 mls/hr Q12 IVPB Last administered on 08/26/18 09:20; Admin Dose 100 MLS/HR; Start 08/25/18 at 15:00 KELSI CERDA NP Aug 26, 2018 13:16
[2018-08-26] MEDS: DAKINS 0.0125%(1/40) 473 ML SOLUTION TP SCH ×2 (15:14→21:20)
--- NOTE | 2018-08-26 20:51 | CONS ---
Assessment/Plan Assessment/Plan Assessment/Plan (Daily) 1. Acute kidney Injury on CKD III/IV due to prerenal azotemia + ATN from sepsis 2. Status post sepsis 3. 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 ventilator dependent respiratory failure with tracheostomy, dysphagia with G-tube, chronic kidney disease III and history of right nephrectomy and left re nal nephrolithiasis, bipolar disorder 5. Acute hyperkalemia with K 6.0 Plan: off Abx now, ID following Cr 1.52,K 6.0- Kayexalate 15 gram PO x 1 dose now for hyperkalemia if he continues to have Hyperkalemia in AM albs then we will give some iV meds for hyperkalemia Will follow up Consultation Date/Type/Reason Admit Date/Time Aug 15, 2018 at 02:30 Initial Consult Date 08/16/18 Type of Consult NEPHROLOGY Requesting Provider: JOSÉ ANTONIO MIRZA MD Date/Time of Note DATE: 08/26/18 TIME: 20:51 24 HR Interval Summary Free Text/Dictation K 6.0, BUN/Cr 62/1.54, Bp stable Exam/Review of Systems Exam Vitals Vital Signs Date Temp Pulse Resp B/P (MAP) Pulse Ox O2 O2 Flow FiO2 Time Delivery Rate 08/26/18 98.0 82 21 98/73 (81) 93 20:09 08/26/18 40 16:45 08/26/18 Mechanical 15:31 Ventilator Intake and Output 08/25/18 08/25/18 08/26/18 1515:00 23:00 07:00 IntakeIntake Total 1400 ml OutputOutput Total 1000 ml 1250 ml BalanceBalance 400 ml -1250 ml Exam Constitutional: alert, oriented Neck: supple, other (Tracheostomy) Respiratory: diminished breath sounds, other (Scattered rhonchi) Cardiovascular: regular rate and rhythm Gastrointestinal: soft, non-tender, other (G-tube) Genitourinary - Male: other (Suprapubic catheter) Musculoskeletal: other (Contracted ) Extremities: normal pulses Neurological: confused Skin: other (Multiple wounds) Results Result Diagram: 08/26/18 1038 08/26/18 1038 Results 24hrs Laboratory Tests Test 08/26/18 10:38 White Blood Count 8.2 # Red Blood Count 2.84 L Hemoglobin 7.9 L Hematocrit 27.5 L Mean Corpuscular Volume 96.8 Mean Corpuscular Hemoglobin 27.8 L Mean Corpuscular Hemoglobin Concent 28.7 L Red Cell Distribution Width 18.1 H Platelet Count 158 Mean Platelet Volume 12.2 H Immature Granulocytes % 0.400 Neutrophils % 86.1 H Lymphocytes % 6.1 L Monocytes % 4.4 Eosinophils % 2.6 Basophils % 0.4 Nucleated Red Blood Cells % 0.0 Immature Granulocytes # 0.030 Neutrophils # 7.1 Lymphocytes # 0.5 L Monocytes # 0.4 Eosinophils # 0.2 Basophils # 0.0 Nucleated Red Blood Cells # 0.0 Sodium Level 138 Potassium Level 6.0 H Chloride Level 107 Carbon Dioxide Level 24 Anion Gap 7 Blood Urea Nitrogen 62 H Creatinine 1.54 H Est Glomerular Filtrat Rate mL/min 50 L Glucose Level 96 Calcium Level 9.1 Medications Medication Current Medications Acetaminophen/ Hydrocodone Bitart ([place] (5/325)) 1 tab Q4H PRN GTB PAIN LEVEL 7-10 Last administered on 08/22/18 05:35; Admin Dose 1 TAB; Start 08/15/18 at 03:30 Diphenhydramine HCl (Benadryl) 25 mg HS PRN PO INSOMNIA Last administered on 08/20/18 20:55; Admin Dose 25 MG; Start 08/15/18 at 03:30 Ondansetron HCl (Zofran Inj) 4 mg Q4H PRN IV NAUSEA AND/OR VOMITING; Start at 03:30 Levetiracetam (Keppra Liquid) 500 mg BID GTB Last administered on 08/26/18 09:07; Admin Dose 500 MG; Start 08/15/18 at 09:00 Quetiapine Fumarate (Seroquel) 75 mg BID GTB Last administered on 08/26/18 09:08; Admin Dose 75 MG; Start 08/15/18 at 09:00 Polyethylene Glycol (Miralax) 17 gm DAILY GTB Last administered on 08/26/18 09:07; Admin Dose 17 GM; Start 08/15/18 at 09:00 Enoxaparin Sodium (Lovenox) 40 mg DAILY SC Last administered on 08/26/18 09:15; Admin Dose 40 MG; Start 08/15/18 at 09:00 Multivitamins/ Minerals (Theragran-M) 1 tab DAILY GTB Last administered on 08/26 09:07; Admin Dose 1 TAB; Start 08/15/18 at 09:00 Ascorbic Acid (Vitamin C) 250 mg DAILY GTB Last administered on 08/26/18 09:08; Admin Dose 250 MG; Start 08/15/18 at 09:00 Zinc Sulfate (Zinc Sulfate) 220 mg DAILY GTB Last administered on 08/26/18 09:08; Admin Dose 220 MG; Start 08/15/18 at 09:00 Gabapentin (Neurontin Liquid) 300 mg BID GTB Last administered on 08/26/18 09:07; Admin Dose 300 MG; Start 08/15/18 at 09:00 Acetaminophen (Tylenol Liquid) 650 mg Q6 PRN GTB MILD PAIN(1-3)OR ELEVATED TEMP; Start 08/15/18 at 03:30 Hydromorphone HCl (Dilaudid) 0.5 mg Q3H PRN IV SEVERE PAIN LEVEL 7-10 Last administered on 08/26/18 15:13; Admin Dose 0.5 MG; Start 08/15/18 at 03:30 Albuterol (Ventolin Hfa) 4 puff Q6H RESP THERAPY INH Last administered on 08/26/18 20:36; Admin Dose 4 PUFF; Start 08/15/18 at 08:00 Ipratropium [place] (Atrovent Hfa) 4 puff Q6H RESP THERAPY INH Last ad ministered on 08/26/18 20:36; Admin Dose 4 PUFF; Start 08/15/18 at 08:00 Sodium Hypochlorite (Dakins Diluted ()) 1 applic BID TP Last administered on 08/26/18 15:14; Admin Dose 1 APPLIC; Start 08/15/18 at 21:00 Famotidine (Pepcid) 20 mg DAILY GTB Last administered on 08/26/18 09:07; Admin Dose 20 MG; Start 08/16/18 at 09:00 Voriconazole (Vfend) 200 mg BID PO Last administered on 08/26/18 09:07; Admin Dose 200 MG; Start 08/20/18 at 15:00 Meropenem/Sodium Chloride 50 ml @ 100 mls/hr Q12 IVPB Last administered on 7/21/19at 09:20; Admin Dose 100 MLS/HR; Start 08/25/18 at 15:00 TIARA CISNEROS MD Aug 26, 2018 20:51
[2018-08-26] MEDS ORDERED: NA POLYST SULFON 15 GM/60 ML BTL PO ONE (23:00)
[2018-08-27] VITALS (21 sets, daily range): BP systolic 73–119; BP diastolic 49–83; PULSE 71–97; RESP 18–25
[2018-08-27] MEDS: HYDROmorphONE 0.5 MG/0.5 ML SYG IV PRN ×5 (00:14→15:38)
[2018-08-27] MEDS: IPRATROPIUM (HFA) 12.9 GM INHALER INH SCH ×4 (01:43→19:44)
[2018-08-27] MEDS: ALBUTEROL HFA 8 GM INHALER INH SCH ×4 (01:43→19:43)
[2018-08-27] MEDS: VORICONAZOLE 200 MG TAB PO SCH (09:11)
[2018-08-27] MEDS: LEVETIRACETAM (100 MG/ML) 5ML CUP GTB SCH ×2 (09:11→21:18)
[2018-08-27] MEDS: FAMOTIDINE 20 MG TAB GTB SCH (09:11)
[2018-08-27] MEDS: ASCORBIC ACID 250 MG TAB GTB SCH (09:11)
[2018-08-27] MEDS: ZINC SULFATE 220 MG CAP GTB SCH (09:11)
[2018-08-27] MEDS: QUETIAPINE 25 MG TAB GTB SCH ×2 (09:12→21:21)
[2018-08-27] MEDS: MEROPENEM 1 GM/50ML(PMX) 50 ML IVPB SCH (09:12)
[2018-08-27] MEDS: GABAPENTIN (50 MG/ML PO SYG) GTB SCH ×2 (09:12→21:19)
[2018-08-27] MEDS: POLYETHYLENE GLYCOL 17 GM PACKET GTB SCH (09:12)
[2018-08-27] MEDS: MULTIVITAMINS/MINERALS TAB GTB SCH (09:12)
[2018-08-27] MEDS: DAKINS 0.0125%(1/40) 473 ML SOLUTION TP SCH ×2 (09:14→21:22)
[2018-08-27] MEDS: BALSAM PERU/CASTOR OIL 60 GM TUBE TOP SCH ×2 (09:14→21:21)
[2018-08-27] MEDS: ENOXAPARIN 40 MG/0.4 ML SYG SC SCH (09:43)
[2018-08-27] MEDS ORDERED: AMIKACIN IV PER PHARMACY XX SCH (11:30)
--- NOTE | 2018-08-27 11:51 | CONS ---
Assessment/Plan Assessment/Plan Assessment/Plan (Daily) Assessment/Plan (Daily) 1. Acute kidney Injury on CKD III/IV due to prerenal azotemia + ATN from sepsis 2. Status post sepsis 3. 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 ventilator dependent respiratory failure with tracheostomy, dysphagia with G-tube, chronic kidney disease III and history of right nephrectomy and left renal nephrolithiasis, bipolar disorder 5. Acute hyperkalemia with K 6.0 Plan: off Abx now, ID following BUN/Cr 69/1.7, K 5.9- kayexalate 30 gram PO x 1 dose now, will give 2 liter of sodium bicarbonate drip at 75 cc/h r Will follow up Consultation Date/Type/Reason Admit Date/Time Aug 15, 2018 at 02:30 Initial Consult Date 08/16/18 Type of Consult NEPHROLOGY Requesting Provider: JOSÉ ANTONIO MIRZA MD Date/Time of Note DATE: 08/27/18 TIME: 11:51 Exam/Review of Systems Exam Vitals Vital Signs Date Temp Pulse Resp B/P (MAP) Pulse Ox O2 O2 Flow FiO2 Time Delivery Rate 08/27/18 98.3 86 21 98/78 (85) 93 Mechanical 11:41 Ventilator 08/27/18 40 11:15 Intake and Output 08/26/18 08/26/18 08/27/18 1515:00 23:00 07:00 IntakeIntake Total 10 ml 1320 ml OutputOutput Total 1100 ml 600 ml BalanceBalance -1090 ml 720 ml Results Result Diagram: 08/27/18 0537 08/27/18 0537 Results 24hrs Laboratory Tests Test 08/27/18 05:37 White Blood Count 8.1 Red Blood Count 2.78 L Hemoglobin 7.9 L Hematocrit 26.8 L Mean Corpuscular Volume 96.4 Mean Corpuscular Hemoglobin 28.4 L Mean Corpuscular Hemoglobin Concent 29.5 L Red Cell Distribution Width 18.3 H Platelet Count 157 Mean Platelet Volume 12.8 H Immature Granulocytes % 0.500 H Neutrophils % 87.4 H Lymphocytes % 5.4 L Monocytes % 4.4 Eosinophils % 2.1 Basophils % 0.2 Nucleated Red Blood Cells % 0.0 Immature Granulocytes # 0.040 H Neutrophils # 7.1 Lymphocytes # 0.4 L Monocytes # 0.4 Eosinophils # 0.2 Basophils # 0.0 Nucleated Red Blood Cells # 0.0 Sodium Level 138 Potassium Level 5.9 H Chloride Level 106 Carbon Dioxide Level 24 Anion Gap 8 Blood Urea Nitrogen 69 H Creatinine 1.71 H Est Glomerular Filtrat Rate mL/min 44 L Glucose Level 105 Calcium Level 8.9 Medications Medication Current Medications Acetaminophen/ Hydrocodone Bitart ([place] (5/325)) 1 tab Q4H PRN GTB PAIN LEVEL 7-10 Last administered on 08/22/18 05:35; Admin Dose 1 TAB; Start 08/15/18 at 03:30 Diphenhydramine HCl (Benadryl) 25 mg HS PRN PO INSOMNIA Last administered on 08/20/18 20:55; Admin Dose 25 MG; Start 08/15/18 at 03:30 Ondansetron HCl (Zofran Inj) 4 mg Q4H PRN IV NAUSEA AND/OR VOMITING; Start 08/15/18 at 03:30 Levetiracetam (Keppra Liquid) 500 mg BID GTB Last administered on 08/27/18 09:11; Admin Dose 500 MG; Start 08/15/18 at 09:00 Quetiapine Fumarate (Seroquel) 75 mg BID GTB Last administered on 08/27/18 09:12; Admin Dose 75 MG; Start 08/15/18 at 09:00 Polyethylene Glycol (Miralax) 17 gm DAILY GTB Last administered on 08/27/18 09:12; Admin Dose 17 GM; Start 08/15/18 at 09:00 Enoxaparin Sodium (Lovenox) 40 mg DAILY SC Last administered on 08/27/18 09:43; Admin Dose 40 MG; Start 08/15/18 at 09:00 Multivitamins/ Minerals (Theragran-M) 1 tab DAILY GTB Last administered on 08/27/18 09:12; Admin Dose 1 TAB; Start 08/15/18 at 09:00 Ascorbic Acid (Vitamin C) 250 mg DAILY GTB Last administered on 08/27/18 09:11; Admin Dose 250 MG; Start 08/15/18 at 09:00 Zinc Sulfate (Zinc Sulfate) 220 mg DAILY GTB Last administered on 08/27/18 09:11; Admin Dose 220 MG; Start 08/15/18 at 09:00 Gabapentin (Neurontin Liquid) 300 mg BID GTB Last administered on 08/27/18 09:12; Admin Dose 300 MG; Start 08/15/18 at 09:00 Acetaminophen (Tylenol Liquid) 650 mg Q6 PRN GTB MILD PAIN(1-3)OR ELEVATED TEMP; Start 08/15/18 at 03:30 Hydromorphone HCl (Dilaudid) 0.5 mg Q3H PRN IV SEVERE PAIN LEVEL 7-10 Last administered on 08/27/18 09:13; Admin Dose 0.5 MG; Start 08/15/18 at 03:30 Albuterol (Ventolin Hfa) 4 puff Q6H RESP THERAPY INH Last administered on 08/27/18 07:58; Admin Dose 4 PUFF; Start 08/15/18 at 08:00 Ipratropium [place] (Atrovent Hfa) 4 puff Q6H RESP THERAPY INH Last administered on 08/27/18 07:58; Admin Dose 4 PUFF; Start 08/15/18 at 08:00 Sodium Hypochlorite (Dakins Diluted (40)) 1 applic BID TP Last administered on 08/27/18 09:14; Admin Dose 1 APPLIC; Start 08/15/18 at 21:00 Famotidine (Pepcid) 20 mg DAILY GTB Last administered on 08/27/18 09:11; Admin Dose 20 MG; Start 08/16/18 at 09:00 Amikacin Sulfate (Amikacin Iv Per Pharmacy) AMIKACIN PER PHARMACY NOTE XX ; Start 08/27/18 at 11:30 TIARA CISNEROS MD Aug 27, 2018 11:51
[2018-08-27] MEDS ORDERED: NA POLYST SULFON 15 GM/60 ML BTL PO ONE (12:00)
[2018-08-27] MEDS: SODIUM BICARBONATE (IV ADD) 100 MEQ in DEXTROSE 5% 900 ML IV SCH (13:56)
[2018-08-27] MEDS ORDERED: AMIKACIN 300 MG in SOD CHLORIDE 0.9% 100 ML IVPB SCH (15:00)
--- NOTE | 2018-08-27 15:22 | CONS ---
Assessment/Plan Assessment/Plan Hospital Course (Demo Recall) Patient is awake looks comfortable Allergies: Tetracyclines Antimicrobials: Vfend Urine culture growing multidrug-resistant procidentia and Pseudomonas Indwelling: Trach, PEG, PICC line, suprapubic catheter Physical examination: Chronically ill-appearing wasted middle-aged man who is awake in no distress. Head atraumatic normocephalic sclera nonicteric vehicle mucosa dry neck is supple tracheostomy present chest rise symmetrical breath sounds diminished the bases. Heart: S1-S2. Abdomen soft bowel sounds present. Extremities wasted contractured Assessment: 1. Hypotension, rule out sepsis 2. Recurrent UTI 3. Chronic respiratory failure 4. Acute on chronic kidney disease 5. Incomplete quadriplegia 6. Pancytopenia 7. History of left breast nephrectomy 8. Multiple chronic decubitus ulcers 10. History of MRSA colonization Plan: Clinically stable, change antibiotics to amikacin Consultation Date/Type/Reason Admit Date/Time Aug 15, 2018 at 02:30 Initial Consult Date 08/16/18 Type of Consult id Requesting Provider: JOSÉ ANTONIO MIRZA MD Date/Time of Note DATE: 08/27/18 TIME: 15:21 Exam/Review of Systems Exam Vitals Vital Signs Date Temp Pulse Resp B/P (MAP) Pulse Ox O2 O2 Flow FiO2 Time Delivery Rate 08/27/18 98.3 86 21 98/78 (85) 93 Mechanical 11:41 Ventilator 08/27/18 40 11:15 Intake and Output 08/26/18 08/26/18 08/27/18 1515:00 23:00 07:00 IntakeIntake Total 10 ml 1320 ml OutputOutput Total 1100 ml 600 ml BalanceBalance -1090 ml 720 ml Results Result Diagram: 08/27/18 0537 08/27/18 0537 Results 24hrs Laboratory Tests Test 08/27/18 05:37 White Blood Count 8.1 Red Blood Count 2.78 L Hemoglobin 7.9 L Hematocrit 26.8 L Mean Corpuscular Volume 96.4 Mean Corpuscular Hemoglobin 28.4 L Mean Corpuscular Hemoglobin Concent 29.5 L Red Cell Distribution Width 18.3 H Platelet Count 157 Mean Platelet Volume 12.8 H Immature Granulocytes % 0.500 H Neutrophils % 87.4 H Lymphocytes % 5.4 L Monocytes % 4.4 Eosinophils % 2.1 Basophils % 0.2 Nucleated Red Blood Cells % 0.0 Immature Granulocytes # 0.040 H Neutrophils # 7.1 Lymphocytes # 0.4 L Monocytes # 0.4 Eosinophils # 0.2 Basophils # 0.0 Nucleated Red Blood Cells # 0.0 Sodium Level 138 Potassium Level 5.9 H Chloride Level 106 Carbon Dioxide Level 24 Anion Gap 8 Blood Urea Nitrogen 69 H Creatinine 1.71 H Est Glomerular Filtrat Rate mL/min 44 L Glucose Level 105 Calcium Level 8.9 Medications Medication Current Medications Acetaminophen/ Hydrocodone Bitart ([place] (5/325)) 1 tab Q4H PRN GTB PAIN LEVEL 7-10 Last administered on 08/22/18 05:35; Admin Dose 1 TAB; Start 08/15/18 at 03:30 Diphenhydramine HCl (Benadryl) 25 mg HS PRN PO INSOMNIA Last administered on 08/20/18 20:55; Admin Dose 25 MG; Start 08/15/18 at 03:30 Ondansetron HCl (Zofran Inj) 4 mg Q4H PRN IV NAUSEA AND/OR VOMITING; Start 08/15/18 at 03:30 Levetiracetam (Keppra Liquid) 500 mg BID GTB Last administered on 08/27/18 09:11; Admin Dose 500 MG; Start 08/15/18 at 09:00 Quetiapine Fumarate (Seroquel) 75 mg BID GTB Last administered on 08/27/18 09:12; Admin Dose 75 MG; Start 08/15/18 at 09:00 Polyethylene Glycol (Miralax) 17 gm DAILY GTB Last administered on 08/27/18 09:12; Admin Dose 17 GM; Start 08/15/18 at 09:00 Enoxaparin Sodium (Lovenox) 40 mg DAILY SC Last administered on 08/27/18 09:43; Admin Dose 40 MG; Start 08/15/18 at 09:00 Multivitamins/ Minerals (Theragran-M) 1 tab DAILY GTB Last administered on 08/27/18 09:12; Admin Dose 1 TAB; Start 08/15/18 at 09:00 Ascorbic Acid (Vitamin C) 250 mg DAILY GTB Last administered on 08/27/18 09:11 ; Admin Dose 250 MG; Start 08/15/18 at 09:00 Zinc Sulfate (Zinc Sulfate) 220 mg DAILY GTB Last administered on 08/27/18 09:11; Admin Dose 220 MG; Start 08/15/18 at 09:00 Gabapentin (Neurontin Liquid) 300 mg BID GTB Last administered on 08/27/18 09:12; Admin Dose 300 MG; Start 08/15/18 at 09:00 Acetaminophen (Tylenol Liquid) 650 mg Q6 PRN GTB MILD PAIN(1-3)OR ELEVATED TEMP; Start 08/15/18 at 03:30 Hydromorphone HCl (Dilaudid) 0.5 mg Q3H PRN IV SEVERE PAIN LEVEL 7-10 Last administered on 08/27/18 12:27; Admin Dose 0.5 MG; Start 08/15/18 at 03:30 Albuterol (Ventolin Hfa) 4 puff Q6H RESP THERAPY INH Last administered on 08/27/18 13:59; Admin Dose 4 PUFF; Start 08/15/18 at 08:00 Ipratropium [place] (Atrovent Hfa) 4 puff Q6H RESP THERAPY INH Last administered on 08/27/18 13:59; Admin Dose 4 PUFF; Start 08/15/18 at 08:00 Sodium Hypochlorite (Dakins Diluted (40)) 1 applic BID TP Last administered on 08/27/18 09:14; Admin Dose 1 APPLIC; Start 08/15/18 at 21:00 Famotidine (Pepcid) 20 mg DAILY GTB Last administered on 08/27/18 09:11; Admin Dose 20 MG; Start 08/16/18 at 09:00 Amikacin Sulfate (Amikacin Iv Per Pharmacy) AMIKACIN PER PHARMACY NOTE XX ; Start 08/27/18 at 11:30 Sodium Bicarbonate 100 meq/Dextrose 1,000 ml @ 75 mls/hr [id number] IV Last administered on 08/27/18 13:56; Admin Dose 75 MLS/HR; Start 08/27/18 at 13:00; Stop 08/28/18 at 15:39 Amikacin Sulfate 300 mg/Sodium Chloride 101.2 ml @ 102 mls/hr Q48H IVPB ; Start 08/27/18 at 15:00 REGINALDO CHERY NP Aug 27, 2018 15:22
--- NOTE | 2018-08-27 15:29 | PN ---
Date/Time of Note Date/Time of Note DATE: 08/27/18 TIME: 15:23 Assessment/Plan VTE Prophylaxis Risk score (from Ns)>0 risk: 1 SCD applied (from Ns): No SCD contraindicated: patient refusal Pharmacological prophylaxis: LMWH Lines/Catheters IV Catheter Type (from Nrs): PICC Line Central line still needed: Yes Urinary Cath still in place: Yes Reason Cath still needed: urinary retention Assessment/Plan Hospital Course Patient is currently on amikacin for polymicrobial urinary tract infection, potassium is 5.9 pending administration of Kayexalate, BMP tomorrow. Assessment/Plan - Polymicrobial UTI, currently on amikacin, continue antibiotics per ID. Dr. Maciel is following in infection disease consultation. - Hyperkalemia, resolved. - S/p sepsis secondary to pneumonia, continue antibiotics per ID recommendations. - Large tracheal opening, s/p evaluation by Dr Woodruff in ENT consultation with recommendation for free flap closure. Patient was evaluated at [facility] [employer] [facility] refused to have surgery, not cooperative with care. - Ventilator dependent respiratory failure, continue pulmonary toilet and bronchodilators. Dr Ames is following in pulmonology consultation. - Acute on chronic renal failure. Continue to monitor BUN and creatinine. - Anemia of chronic disease. Continue Epogen. - Neurogenic bladder with suprapubic catheter. - Dysphagia with gastrostomy tube. - Seizures, continue Keppra - Multiple decubitus ulcers present on admission. - Cervical spine injury with paraplegia. - Bipolar disorder with psychosis. - Hx of right nephrectomy - Hx of left renal nephrolithiasis, hx of lithotripsy with insertion and subsequent removal of ureteral JJ stent. Disposition: [facility] and rehab when patient is stable and cleared by consultants. Further recommendations based on clinical course. Plan of care discussed with Dr. Barreto. Result Diagram: 08/27/18 0537 08/27/18 0537 Results 24hrs Laboratory Tests Test 08/27/18 05:37 White Blood Count 8.1 Red Blood Count 2.78 L Hemoglobin 7.9 L Hematocrit 26.8 L Mean Corpuscular Volume 96.4 Mean Corpuscular Hemoglobin 28.4 L Mean Corpuscular Hemoglobin Concent 29.5 L Red Cell Distribution Width 18.3 H Platelet Count 157 Mean Platelet Volume 12.8 H Immature Granulocytes % 0.500 H Neutrophils % 87.4 H Lymphocytes % 5.4 L Monocytes % 4.4 Eosinophils % 2.1 Basophils % 0.2 Nucleated Red Blood Cells % 0.0 Immature Granulocytes # 0.040 H Neutrophils # 7.1 Lymphocytes # 0.4 L Monocytes # 0.4 Eosinophils # 0.2 Basophils # 0.0 Nucleated Red Blood Cells # 0.0 Sodium Level 138 Potassium Level 5.9 H Chloride Level 106 Carbon Dioxide Level 24 Anion Gap 8 Blood Urea Nitrogen 69 H Creatinine 1.71 H Est Glomerular Filtrat Rate mL/min 44 L Glucose Level 105 Calcium Level 8.9 Exam/Review of Systems Exam Vitals Vital Signs Date Temp Pulse Resp B/P (MAP) Pulse Ox O2 O2 Flow FiO2 Time Delivery Rate 08/27/18 98.3 86 21 98/78 (85) 93 Mechanical 11:41 Ventilator 08/27/18 40 11:15 Intake and Output 08/26/18 08/26/18 08/27/18 1515:00 23:00 07:00 IntakeIntake Total 10 ml 1320 ml OutputOutput Total 1100 ml 600 ml BalanceBalance -1090 ml 720 ml Exam Constitutional: alert, oriented Neck: supple, other (Tracheostomy) Respiratory: diminished breath sounds Cardiovascular: regular rate and rhythm Gastrointestinal: soft, non-tender, other (G-tube) Genitourinary - Male: other (Suprapubic catheter) Musculoskeletal: other (Contracted ) Extremities: normal pulses Neurological: confused Skin: other (Multiple wounds) Results Results 24hrs Laboratory Tests Test 08/27/18 05:37 White Blood Count 8.1 Red Blood Count 2.78 L Hemoglobin 7.9 L Hematocrit 26.8 L Mean Corpuscular Volume 96.4 Mean Corpuscular Hemoglobin 28.4 L Mean Corpuscular Hemoglobin Concent 29.5 L Red Cell Distribution Width 18.3 H Platelet Count 157 Mean Platelet Volume 12.8 H Immature Granulocytes % 0.500 H Neutrophils % 87.4 H Lymphocytes % 5.4 L Monocytes % 4.4 Eosinophils % 2.1 Basophils % 0.2 Nucleated Red Blood Cells % 0.0 Immature Granulocytes # 0.040 H Neutrophils # 7.1 Lymphocytes # 0.4 L Monocytes # 0.4 Eosinophils # 0.2 Basophils # 0.0 Nucleated Red Blood Cells # 0.0 Sodium Level 138 Potassium Level 5.9 H Chloride Level 106 Carbon Dioxide Level 24 Anion Gap 8 Blood Urea Nitrogen 69 H Creatinine 1.71 H Est Glomerular Filtrat Rate mL/min 44 L Glucose Level 105 Calcium Level 8.9 Medications Medication Current Medications Acetaminophen/ Hydrocodone Bitart ([place] (5/325)) 1 tab Q4H PRN GTB PAIN LEVEL 7-10 Last administered on 08/22/18 05:35; Admin Dose 1 TAB; Start 08/15/18 at 03:30 Diphenhydramine HCl (Benadryl) 25 mg HS PRN PO INSOMNIA Last administered on 08/20/18 20:55; Admin Dose 25 MG; Start 08/15/18 at 03:30 Ondansetron HCl (Zofran Inj) 4 mg Q4H PRN IV NAUSEA AND/OR VOMITING; Start 08/15/18 at 03:30 Levetiracetam (Keppra Liquid) 500 mg BID GTB Last administered on 08/27/18 0 9:11; Admin Dose 500 MG; Start 08/15/18 at 09:00 Quetiapine Fumarate (Seroquel) 75 mg BID GTB Last administered on 08/27/18 09:12; Admin Dose 75 MG; Start 08/15/18 at 09:00 Polyethylene Glycol (Miralax) 17 gm DAILY GTB Last administered on 08/27/18 09:12; Admin Dose 17 GM; Start 08/15/18 at 09:00 Enoxaparin Sodium (Lovenox) 40 mg DAILY SC Last administered on 08/27/18 09:43; Admin Dose 40 MG; Start 08/15/18 at 09:00 Multivitamins/ Minerals (Theragran-M) 1 tab DAILY GTB Last administered on 08/27/18 09:12; Admin Dose 1 TAB; Start 08/15/18 at 09:00 Ascorbic Acid (Vitamin C) 250 mg DAILY GTB Last administered on 08/27/18 09:11; Admin Dose 250 MG; Start 08/15/18 at 09:00 Zinc Sulfate (Zinc Sulfate) 220 mg DAILY GTB Last administered on 08/27/18 09:11; Admin Dose 220 MG; Start 08/15/18 at 09:00 Gabapentin (Neurontin Liquid) 300 mg BID GTB Last administered on 08/27/18 09:12; Admin Dose 300 MG; Start 08/15/18 at 09:00 Acetaminophen (Tylenol Liquid) 650 mg Q6 PRN GTB MILD PAIN(1-3)OR ELEVATED TEMP; Start 08/15/18 at 03:30 Hydromorphone HCl (Dilaudid) 0.5 mg Q3H PRN IV SEVERE PAIN LEVEL 7-10 Last administered on 08/27/18 12:27; Admin Dose 0.5 MG; Start 08/15/18 at 03:30 Albuterol (Ventolin Hfa) 4 puff Q6H RESP THERAPY INH Last administered on 08/27/18 13:59; Admin Dose 4 PUFF; Start 08/15/18 at 08:00 Ipratropium [place] (Atrovent Hfa) 4 puff Q6H RESP THERAPY INH Last administered on 08/27/18 13:59; Admin Dose 4 PUFF; Start 08/15/18 at 08:00 Sodium Hypochlorite (Dakins Diluted (40)) 1 applic BID TP Last administered on 08/27/18 09:14; Admin Dose 1 APPLIC; Start 08/15/18 at 21:00 Famotidine (Pepcid) 20 mg DAILY GTB Last administered on 08/27/18 09:11; Admin Dose 20 MG; Start 08/16/18 at 09:00 Amikacin Sulfate (Amikacin Iv Per Pharmacy) AMIKACIN PER PHARMACY NOTE XX ; Start 08/27/18 at 11:30 Sodium Bicarbonate 100 meq/Dextrose 1,000 ml @ 75 mls/hr [id number] IV Last administered on 08/27/18 13:56; Admin Dose 75 MLS/HR; Start 08/27/18 at 13:00; Stop 08/28/18 at 15:39 Amikacin Sulfate 300 mg/Sodium Chloride 101.2 ml @ 102 mls/hr Q48H IVPB ; Start 08/27/18 at 15:00 AISSATOU DUNCAN Aug 27, 2018 15:29
--- NOTE | 2018-08-27 19:11 | CONS ---
Consult Date/Type/Reason Admit Date/Time Aug 15, 2018 at 02:30 Initial Consult Date 08/16/18 Type of Consultation: Urology Reason for Consultation Leaking suprapubic tube Requesting Provider: JOSÉ ANTONIO MIRZA MD Date/Time of Note DATE: 08/27/18 TIME: 19:03 Subjective Patient presently is being cleaned from a watery diarrhea Objective Vitals Vital Signs Date Temp Pulse Resp B/P (MAP) Pulse Ox O2 O2 Flow FiO2 Time Delivery Rate 08/27/18 98.3 86 21 98/78 (85) 93 Mechanical 11:41 Ventilator 08/27/18 40 11:15 Intake and Output 08/26/18 08/26/18 08/27/18 1515:00 23:00 07:00 IntakeIntake Total 10 ml 1320 ml OutputOutput Total 1100 ml 600 ml BalanceBalance -1090 ml 720 ml Exam Suprapubic tube is in place, the urine is clear Results/Medications Result Diagram: 08/27/18 0537 08/27/18 0537 Results 24 hrs Laboratory Tests Test 08/27/18 05:37 White Blood Count 8.1 Red Blood Count 2.78 L Hemoglobin 7.9 L Hematocrit 26.8 L Mean Corpuscular Volume 96.4 Mean Corpuscular Hemoglobin 28.4 L Mean Corpuscular Hemoglobin Concent 29.5 L Red Cell Distribution Width 18.3 H Platelet Count 157 Mean Platelet Volume 12.8 H Immature Granulocytes % 0.500 H Neutrophils % 87.4 H Lymphocytes % 5.4 L Monocytes % 4.4 Eosinophils % 2.1 Basophils % 0.2 Nucleated Red Blood Cells % 0.0 Immature Granulocytes # 0.040 H Neutrophils # 7.1 Lymphocytes # 0.4 L Monocytes # 0.4 Eosinophils # 0.2 Basophils # 0.0 Nucleated Red Blood Cells # 0.0 Sodium Level 138 Potassium Level 5.9 H Chloride Level 106 Carbon Dioxide Level 24 Anion Gap 8 Blood Urea Nitrogen 69 H Creatinine 1.71 H Est Glomerular Filtrat Rate mL/min 44 L Glucose Level 105 Calcium Level 8.9 Home Meds Reported Medications Tramadol Hcl* (Ultram*) 50 Mg Tablet, 50 MG GTB BID PRN for BREAKTHROUGH PAIN, TAB 07/18/18 Acetaminophen* (Acetaminophen*) 500 MG Extra Strength Tablet, 1000 MG GTB Q4 PRN for PAIN LEVEL 4-6, TAB 07/18/18 Acetaminophen* (Acetaminophen*) 650 Mg Tablet, 650 MG GTB Q4 PRN for PAIN LEVEL 1-3, #30 TAB AND FEVER 07/18/18 Glycopyrrolate* (Glycopyrrolate*) 1 Mg Tablet, 1 MG GTB TID, TAB 07/18/18 Epoetin [place] (Procrit) 4,000 Unit/1 Ml Vial, 4000 UNIT IJ MON, WED,SAT,, VIAL HOLD IF HGB ABOVE 10 07/18/18 Famotidine* (Pepcid*) 20 Mg Tablet, 20 MG GTB DAILY, #30 TAB 07/18/18 Multivitamins* (Theragran*) 1 Tab Tab, 1 TAB GTB DAILY, TAB 07/18/18 Midodrine* (Midodrine*) 5 Mg Tablet, 5 MG GTB BID, TAB FOR SBP BELOW 90 07/18/18 Enoxaparin Sodium* (Lovenox*) 30 Mg/0.3 Ml Disp.syrin, 30 MG SQ DAILY, SYR 07/18/18 Hydromorphone Hcl* (Dilaudid*) 2 Mg Tablet, 2 MG PO Q4H PRN for PAIN 7-9, TAB 07/18/18 Citric Acid/Sodium Citrate (Sod Citrate-Citric Acid Soln) 473 Ml Solution, 30 ML GTB TID 07/18/18 Atenolol* (Atenolol*) 25 Mg Tablet, 12.5 MG GTB BID, #60 TAB 07/18/18 Zinc Sulfate* (Zinc Sulfate*) 220 Mg Tablet, 220 MG GTB DAILY, TAB 05/14/18 Cran/Vitc/Mannose/Inulin/Brom (Uti-Stat Liquid) 3,875 Mg/30 Ml Liquid, 30 ML GTB DAILY 05/14/18 Quetiapine Fumarate* (Seroquel*) 50 Mg Tablet, 50 MG GTB BID, TAB 05/14/18 Magnesium Hydroxide* (Milk Of Magnesia*) 400 Mg/5 Ml Oral.susp, 30 ML GTB NEEDED, ML END DATE 07/09/18 05/14/18 Levetiracetam* (Keppra* (Ped)) 100 Mg/Ml Liq, 5 ML GTB Q12H for 30 Days, BOTTLE 05/14/18 Na Phos,M-B/Na Phos,Di-Ba (Fleet Enema Extra) 230 Ml Enema, 1 APPLIC RC NEEDED, ENEMA END DATE 07/09/18 05/14/18 Bisacodyl* (Bisacodyl*) 10 Mg Supp, 10 MG ID NEEDED, SUPP END DATE 07/09/18 05/14/18 Cranberry Extract (Cranberry) 425 Mg Capsule, 425 MG GTB DAILY, CAP 05/14/18 Docusate Sodium* (Colace*) 100 Mg Capsule, 100 MG GTB QHS, #30 CAP 05/14/18 Chlorhexidine Gluconate (Peridex) 473 Ml Mouthwash, 15 ML MM Q12H, BOTTLE 05/14/18 Albuterol Sulfate* (Albuterol Sulfate* Neb) 0.083%-3 Ml Neb, 2.5 MG NEB Q6H PRN for WHEEZING AND SOB, #30 VIAL AND Q3H NEEDED 05/14/18 Medications Current Medications Acetaminophen/ Hydrocodone Bitart ([place] (5/325)) 1 tab Q4H PRN GTB PAIN LEVEL 7-10 Last administered on 08/22/18at 05:35; Admin Dose 1 TAB; Start 08/15/18 at 03:30 Diphenhydramine HCl (Benadryl) 25 mg HS PRN PO INSOMNIA Last administered on 08/20/18at 20:55; Admin Dose 25 MG; Start 08/15/18 at 03:30 Ondansetron HCl (Zofran Inj) 4 mg Q4H PRN IV NAUSEA AND/OR VOMITING; Start 08/15/18 at 03:30 Levetiracetam (Keppra Liquid) 500 mg BID GTB Last administered on 08/27/18at 09:11; Admin Dose 500 MG; Start 08/15/18 at 09:00 Quetiapine Fumarate (Seroquel) 75 mg BID GTB Last administered on 08/27/18at 09:12; Admin Dose 75 MG; Start 08/15/18 at 09:00 Polyethylene Glycol (Miralax) 17 gm DAILY GTB Last administered on 08/27/18at 09:12; Admin Dose 17 GM; Start 08/15/18 at 09:00 Enoxaparin Sodium (Lovenox) 40 mg DAILY SC Last administered on 08/27/18 09:43; Admin Dose 40 MG; Start 08/15/18 at 09:00 Multivitamins/ Minerals (Theragran-M) 1 tab DAILY GTB Last administered on 08/27/18 09:12; Admin Dose 1 TAB; Start 08/15/18 at 09:00 Ascorbic Acid (Vitamin C) 250 mg DAILY GTB Last administered on 08/27/18 09:11; Admin Dose 250 MG; Start 08/15/18 at 09:00 Zinc Sulfate (Zinc Sulfate) 220 mg DAILY GTB Last administered on 08/27/18 09:11; Admin Dose 220 MG; Start 08/15/18 at 09:00 Gabapentin (Neurontin Liquid) 300 mg BID GTB Last administered on 08/27/18 09:12; Admin Dose 300 MG; Start 08/15/18 at 09:00 Acetaminophen (Tylenol Liquid) 650 mg Q6 PRN GTB MILD PAIN(1-3)OR ELEVATED TEMP; Start 08/15/18 at 03:30 Hydromorphone HCl (Dilaudid) 0.5 mg Q3H PRN IV SEVERE PAIN LEVEL 7-10 Last administered on 08/27/18 15:38; Admin Dose 0.5 MG; Start 08/15/18 at 03:30 Albuterol (Ventolin Hfa) 4 puff Q6H RESP THERAPY INH Last administered on 08/27/18 13:59; Admin Dose 4 PUFF; Start 08/15/18 at 08:00 Ipratropium [place] (Atrovent Hfa) 4 puff Q6H RESP THERAPY INH Last administered on 08/27/18 13:59; Admin Dose 4 PUFF; Start 08/15/18 at 08:00 Sodium Hypochlorite (Dakins Diluted (40)) 1 applic BID TP Last administered on 08/27/18 09:14; Admin Dose 1 APPLIC; Start 08/15/18 at 21:00 Famotidine (Pepcid) 20 mg DAILY GTB Last administered on 08/27/18 09:11; Admin Dose 20 MG; Start 08/16/18 at 09:00 Amikacin Sulfate (Amikacin Iv Per Pharmacy) AMIKACIN PER PHARMACY NOTE XX ; Start 08/27/18 at 11:30 Sodium Bicarbonate 100 meq/Dextrose 1,000 ml @ 75 mls/hr [id number] IV Last administered on 08/27/18at 13:56; Admin Dose 75 MLS/HR; Start 08/27/18 at 13:00; Stop 08/28/18 at 15:39 Amikacin Sulfate 300 mg/Sodium Chloride 101.2 ml @ 102 mls/hr Q48H IVPB Last administered on 08/27/18at 17:57; Admin Dose 102 MLS/HR; Start 08/27/18 at 15:00 Assessment/Plan Hospital Course (Demo Recall) 43-year-old male known to have a history of neurogenic bladder. He has lost his right kidney because of kidney stones. He does have a suprapubic tube and did have a left ureteral JJ stent and kidney stones which were removed. He does have a tracheostomy and is on a ventilator. He also has chronic kidney disease and anemia, dysphagia and a G-tube in place,history of seizures on Keppra Multiple decubitus ulcers, cervical spine injury with paraplegia and bipolar d isorder. He was noted to have leakage around the suprapubic tube. He does have a 26 [place] catheter as a suprapubic tube. I will change the suprapubic tube in peggy.mary. BHARGAV JIANG MD Aug 27, 2018 19:11
[2018-08-27] MEDS ORDERED: SOD CHLORIDE 0.9% 500 ML IV ONE (23:00)
[2018-08-28] VITALS (17 sets, daily range): BP systolic 83–104; BP diastolic 51–70; PULSE 80–106; RESP 15–31
[2018-08-28] MEDS ORDERED: SOD CHLORIDE 0.9% 500 ML IV ONE (01:00)
[2018-08-28] MEDS: IPRATROPIUM (HFA) 12.9 GM INHALER INH SCH ×3 (01:25→13:18)
[2018-08-28] MEDS: ALBUTEROL HFA 8 GM INHALER INH SCH ×3 (01:25→13:18)
[2018-08-28] MEDS: SODIUM BICARBONATE (IV ADD) 100 MEQ in DEXTROSE 5% 900 ML IV SCH (02:20)
[2018-08-28] MEDS: HYDROCODONE/APAP (5/325) TAB GTB PRN (05:00)
--- NOTE | 2018-08-28 07:49 | CONS ---
Consult Date/Type/Reason Admit Date/Time Aug 15, 2018 at 02:30 Initial Consult Date 08/16/18 Type of Consultation: Urology Reason for Consultation Leaking suprapubic tube Requesting Provider: JOSÉ ANTONIO MIRZA MD Date/Time of Note DATE: 08/28/18 TIME: 07:47 Subjective Patient urinating through his penis and has leakage around the suprapubic tube Objective Vitals Vital Signs Date Temp Pulse Resp B/P (MAP) Pulse Ox O2 O2 Flow FiO2 Time Delivery Rate 08/28/18 107 31 93 40 05:16 08/28/18 97.9 99/69 (79) Mechanical 03:43 Ventilator Intake and Output 08/27/18 08/27/18 08/28/18 1515:00 23:00 07:00 IntakeIntake Total 3220 ml OutputOutput Total 600 ml BalanceBalance 2620 ml Exam Incontinence through the penis and suprapubic area Results/Medications Result Diagram: 08/28/18 0539 08/28/18 0539 Results 24 hrs Laboratory Tests Test 08/28/18 05:39 White Blood Count 5.5 # Red Blood Count 2.52 L Hemoglobin 7.1 L Hematocrit 24.1 L Mean Corpuscular Volume 95.6 Mean Corpuscular Hemoglobin 28.2 L Mean Corpuscular Hemoglobin Concent 29.5 L Red Cell Distribution Width 18.3 H Platelet Count 118 #L Mean Platelet Volume 12.4 H Immature Granulocytes % 0.500 H Neutrophils % 84.3 H Lymphocytes % 6.9 L Monocytes % 4.5 Eosinophils % 3.6 Basophils % 0.2 Nucleated Red Blood Cells % 0.0 Immature Granulocytes # 0.030 Neutrophils # 4.6 Lymphocytes # 0.4 L Monocytes # 0.3 Eosinophils # 0.2 Basophils # 0.0 Nucleated Red Blood Cells # 0.0 Sodium Level 136 Potassium Level 3.6 # Chloride Level 99 Carbon Dioxide Level 30 Anion Gap 7 Blood Urea Nitrogen 65 H Creatinine 1.38 H Est Glomerular Filtrat Rate mL/min 57 L Glucose Level 376 #H Calcium Level 7.6 L Home Meds Reported Medications Tramadol Hcl* (Ultram*) 50 Mg Tablet, 50 MG GTB BID PRN for BREAKTHROUGH PAIN, TAB 07/18/18 Acetaminophen* (Acetaminophen*) 500 MG Extra Strength Tablet, 1000 MG GTB Q4 PRN for PAIN LEVEL 4-6, TAB 6/12/19 Acetaminophen* (Acetaminophen*) 650 Mg Tablet, 650 MG GTB Q4 PRN for PAIN LEVEL 1-3, #30 TAB AND FEVER 07/18/18 Glycopyrrolate* (Glycopyrrolate*) 1 Mg Tablet, 1 MG GTB TID, TAB 07/18/18 Epoetin [place] (Procrit) 4,000 Unit/1 Ml Vial, 4000 UNIT IJ MON, WED,SAT,, VIAL HOLD IF HGB ABOVE 10 07/18/18 Famotidine* (Pepcid*) 20 Mg Tablet, 20 MG GTB DAILY, #30 TAB 07/18/18 Multivitamins* (Theragran*) 1 Tab Tab, 1 TAB GTB DAILY, TAB 07/18/18 Midodrine* (Midodrine*) 5 Mg Tablet, 5 MG GTB BID, TAB FOR SBP BELOW 90 07/18/18 Enoxaparin Sodium* (Lovenox*) 30 Mg/0.3 Ml Disp.syrin, 30 MG SQ DAILY, SYR 07/18/18 Hydromorphone Hcl* (Dilaudid*) 2 Mg Tablet, 2 MG PO Q4H PRN for PAIN 7-9, TAB 07/18/18 Citric Acid/Sodium Citrate (Sod Citrate-Citric Acid Soln) 473 Ml Solution, 30 ML GTB TID 07/18/18 Atenolol* (Atenolol*) 25 Mg Tablet, 12.5 MG GTB BID, #60 TAB 07/18/18 Zinc Sulfate* (Zinc Sulfate*) 220 Mg Tablet, 220 MG GTB DAILY, TAB 05/14/18 Cran/Vitc/Mannose/Inulin/Brom (Uti-Stat Liquid) 3,875 Mg/30 Ml Liquid, 30 ML GTB DAILY 05/14/18 Quetiapine Fumarate* (Seroquel*) 50 Mg Tablet, 50 MG GTB BID, TAB 05/14/18 Magnesium Hydroxide* (Milk Of Magnesia*) 400 Mg/5 Ml Oral.susp, 30 ML GTB NEEDED, ML END DATE 07/09/18 05/14/18 Levetiracetam* (Keppra* (Ped)) 100 Mg/Ml Liq, 5 ML GTB Q12H for 30 Days, BOTTLE 05/14/18 Na Phos,M-B/Na Phos,Di-Ba (Fleet Enema Extra) 230 Ml Enema, 1 APPLIC RC NEEDED, ENEMA END DATE 07/09/18 05/14/18 Bisacodyl* (Bisacodyl*) 10 Mg Supp, 10 MG UT NEEDED, SUPP END DATE 07/09/18 05/14/18 Cranberry Extract (Cranberry) 425 Mg Capsule, 425 MG GTB DAILY, CAP 05/14/18 Docusate Sodium* (Colace*) 100 Mg Capsule, 100 MG GTB QHS, #30 CAP 05/14/18 Chlorhexidine Gluconate (Peridex) 473 Ml Mouthwash, 15 ML MM Q12H, BOTTLE 05/14/18 Albuterol Sulfate* (Albuterol Sulfate* Neb) 0.083%-3 Ml Neb, 2.5 MG NEB Q6H PRN for WHEEZING AND SOB, #30 VIAL AND Q3H NEEDED 05/14/18 Medications Current Medications Acetaminophen/ Hydrocodone Bitart ([place] (5/325)) 1 tab Q4H PRN GTB PAIN LEVEL 7-10 Last administered on 08/28/18at 05:00; Admin Dose 1 TAB; Start 08/15/18 at 03:30 Diphenhydramine HCl (Benadryl) 25 mg HS PRN PO INSOMNIA Last administered on 08/20/18at 20:55; Admin Dose 25 MG; Start 08/15/18 at 03:30 Ondansetron HCl (Zofran Inj) 4 mg Q4H PRN IV NAUSEA AND/OR VOMITING; Start 08/15/18 at 03:30 Levetiracetam (Keppra Liquid) 500 mg BID GTB Last administered on 08/27/18at 21:18; Admin Dose 500 MG; Start 08/15/18 at 09:00 Quetiapine Fumarate (Seroquel) 75 mg BID GTB Last administered on 08/27/18at 21:21; Admin Dose 75 MG; Start 08/15/18 at 09:00 Polyethylene Glycol (Miralax) 17 gm DAILY GTB Last administered on 08/27/18at 09:12; Admin Dose 17 GM; Start 08/15/18 at 09:00 Enoxaparin Sodium (Lovenox) 40 mg DAILY SC Last administered on 08/27/18 09:43; Admin Dose 40 MG; Start 08/15/18 at 09:00 Multivitamins/ Minerals (Theragran-M) 1 tab DAILY GTB Last administered on 08/27/18 09:12; Admin Dose 1 TAB; Start 08/15/18 at 09:00 Ascorbic Acid (Vitamin C) 250 mg DAILY GTB Last administered on 08/27/18 09:11; Admin Dose 250 MG; Start 08/15/18 at 09:00 Zinc Sulfate (Zinc Sulfate) 220 mg DAILY GTB Last administered on 08/27/18 09:11; Admin Dose 220 MG; Start 08/15/18 at 09:00 Gabapentin (Neurontin Liquid) 300 mg BID GTB Last administered on 08/27/18 21:19; Admin Dose 300 MG; Start 08/15/18 at 09:00 Acetaminophen (Tylenol Liquid) 650 mg Q6 PRN GTB MILD PAIN(1-3)OR ELEVATED TEMP; Start 08/15/18 at 03:30 Hydromorphone HCl (Dilaudid) 0.5 mg Q3H PRN IV SEVERE PAIN LEVEL 7-10 Last admi nistered on 08/27/18 15:38; Admin Dose 0.5 MG; Start 08/15/18 at 03:30 Albuterol (Ventolin Hfa) 4 puff Q6H RESP THERAPY INH Last administered on 08/28/18 01:25; Admin Dose 4 PUFF; Start 08/15/18 at 08:00 Ipratropium [place] (Atrovent Hfa) 4 puff Q6H RESP THERAPY INH Last administered on 08/28/18 01:25; Admin Dose 4 PUFF; Start 08/15/18 at 08:00 Sodium Hypochlorite (Dakins Diluted (40)) 1 applic BID TP Last administered on 08/27/18 21:22; Admin Dose 1 APPLIC; Start 08/15/18 at 21:00 Famotidine (Pepcid) 20 mg DAILY GTB Last administered on 08/27/18 09:11; Admin Dose 20 MG; Start 08/16/18 at 09:00 Amikacin Sulfate (Amikacin Iv Per Pharmacy) AMIKACIN PER PHARMACY NOTE XX ; Start 08/27/18 at 11:30 Sodium Bicarbonate 100 meq/Dextrose 1,000 ml @ 75 mls/hr [id number] IV Last administered on 08/27/18at 13:56; Admin Dose 75 MLS/HR; Start 08/27/18 at 13:00; Stop 08/28/18 at 15:39 Amikacin Sulfate 300 mg/Sodium Chloride 101.2 ml @ 102 mls/hr Q48H IVPB Last administered on 08/27/18at 17:57; Admin Dose 102 MLS/HR; Start 08/27/18 at 15:00 Assessment/Plan Hospital Course (Demo Recall) 43-year-old male known to have a history of neurogenic bladder. He has lost his right kidney because of kidney stones. He does have a suprapubic tube and did have a left ureteral JJ stent and kidney stones which were removed. He does have a tracheostomy and is on a ventilator. He also has chronic kidney disease and anemia, dysphagia and a G-tube in place,history of seizures on Keppra Multiple decubitus ulcers, cervical spine injury with paraplegia and bipolar disorder. The suprapubic tube was not draining well and there was leakage around it and the patient was voiding from his urethra. I did remove the suprapubic tube and inserted a new one. It appears old one was obstructed and a lot of urine drained out. Urine will be sent for culture and sensitivity BHARGAV JIANG MD Aug 28, 2018 07:48
[2018-08-28] MEDS: POLYETHYLENE GLYCOL 17 GM PACKET GTB SCH (08:46)
[2018-08-28] MEDS: FAMOTIDINE 20 MG TAB GTB SCH (08:46)
[2018-08-28] MEDS: LEVETIRACETAM (100 MG/ML) 5ML CUP GTB SCH (08:46)
[2018-08-28] MEDS: GABAPENTIN (50 MG/ML PO SYG) GTB SCH (08:46)
[2018-08-28] MEDS: MULTIVITAMINS/MINERALS TAB GTB SCH (08:47)
[2018-08-28] MEDS: ASCORBIC ACID 250 MG TAB GTB SCH (08:47)
[2018-08-28] MEDS: QUETIAPINE 25 MG TAB GTB SCH (08:47)
[2018-08-28] MEDS: ZINC SULFATE 220 MG CAP GTB SCH (08:47)
[2018-08-28] MEDS: DAKINS 0.0125%(1/40) 473 ML SOLUTION TP SCH (08:48)
[2018-08-28] MEDS: BALSAM PERU/CASTOR OIL 60 GM TUBE TOP SCH (08:48)
[2018-08-28] MEDS: ENOXAPARIN 40 MG/0.4 ML SYG SC SCH (09:04)
--- NOTE | 2018-08-28 11:15 | CONS ---
Assessment/Plan Assessment/Plan Assessment/Plan (Daily) 1. Acute kidney Injury on CKD III/IV due to prerenal azotemia + ATN from sepsis 2. Status post sepsis 3. 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 ventilator dependent respiratory failure with tracheostomy, dysphagia with G-tube, chronic kidney disease III and history of right nephrectomy and left re nal nephrolithiasis, bipolar disorder 5. Acute hyperkalemia with K 6.0 Plan: BUN/Cr 65/1.38, K 3.6- will give bicitra 30ml PO BID, Finishing Bicarboante drip today Abx switched from Meropeem to IV amikacin,Renally dose all abx,monitor K and HCo3 with amikacin Will follow up Consultation Date/Type/Reason Admit Date/Time Aug 15, 2018 at 02:30 Initial Consult Date 08/16/18 Type of Consult NEPHROLOGY Requesting Provider: JOSÉ ANTONIO MIRZA MD Date/Time of Note DATE: 08/28/18 TIME: 11:13 Exam/Review of Systems Exam Vitals Vital Signs Date Temp Pulse Resp B/P (MAP) Pulse Ox O2 O2 Flow FiO2 Time Delivery Rate 08/28/18 106 15 98/51 (67) 95 08:00 08/28/18 40 05:16 08/28/18 97.9 Mechanical 03:43 Ventilator Intake and Output 08/27/18 08/27/18 08/28/18 1515:00 23:00 07:00 IntakeIntake Total 3220 ml OutputOutput Total 600 ml BalanceBalance 2620 ml Exam Constitutional: alert, oriented Neck: supple, other (Tracheostomy) Respiratory: diminished breath sounds, other (Scattered rhonchi) Cardiovascular: regular rate and rhythm Gastrointestinal: soft, non-tender, other (G-tube) Genitourinary - Male: other (Suprapubic catheter) Musculoskeletal: other (Contracted ) Extremities: normal pulses Neurological: confused Skin: other (Multiple wounds) Results Result Diagram: 08/28/18 0817 08/28/18 0539 Results 24hrs Laboratory Tests Test 08/28/18 05:39 08/28/18 08:17 White Blood Count 5.5 # 7.5 # Red Blood Count 2.52 L 2.52 L Hemoglobin 7.1 L 7.2 L Hematocrit 24.1 L 23.9 L Mean Corpuscular Volume 95.6 94.8 Mean Corpuscular Hemoglobin 28.2 L 28.6 L Mean Corpuscular Hemoglobin Concent 29.5 L 30.1 L Red Cell Distribution Width 18.3 H 18.1 H Platelet Count 118 #L 124 L Mean Platelet Volume 12.4 H 12.5 H Immature Granulocytes % 0.500 H 0.500 H Neutrophils % 84.3 H 86.0 H Lymphocytes % 6.9 L 5.8 L Monocytes % 4.5 5.2 Eosinophils % 3.6 2.5 Basophils % 0.2 0.0 Nucleated Red Blood Cells % 0.0 0.0 Immature Granulocytes # 0.030 0.040 H Neutrophils # 4.6 6.4 Lymphocytes # 0.4 L 0.4 L Monocytes # 0.3 0.4 Eosinophils # 0.2 0.2 Basophils # 0.0 0.0 Nucleated Red Blood Cells # 0.0 0.0 Sodium Level 136 Potassium Level 3.6 # Chloride Level 99 Carbon Dioxide Level 30 Anion Gap 7 Blood Urea Nitrogen 65 H Creatinine 1.38 H Est Glomerular Filtrat Rate mL/min 57 L Glucose Level 376 #H Calcium Level 7.6 L B-Type Natriuretic Peptide 574 H Medications Medication Current Medications Acetaminophen/ Hydrocodone Bitart ([place] (5/325)) 1 tab Q4H PRN GTB PAIN LEVEL 7-10 Last administered on 08/28/18at 05:00; Admin Dose 1 TAB; Start 08/15/18 at 03:30 Diphenhydramine HCl (Benadryl) 25 mg HS PRN PO INSOMNIA Last administered on 08/20/18at 20:55; Admin Dose 25 MG; Start 08/15/18 at 03:30 Ondansetron HCl (Zofran Inj) 4 mg Q4H PRN IV NAUSEA AND/OR VOMITING; Start 08/15/18 at 03:30 Levetiracetam (Keppra Liquid) 500 mg BID GTB Last administered on 08/28/18at 08:46; Admin Dose 500 MG; Start 08/15/18 at 09:00 Quetiapine Fumarate (Seroquel) 75 mg BID GTB Last administered on 08/28/18at 08:47; Admin Dose 75 MG; Start 08/15/18 at 09:00 Polyethylene Glycol (Miralax) 17 gm DAILY GTB Last administered on 08/27/18 09:12; Admin Dose 17 GM; Start 08/15/18 at 09:00 Enoxaparin Sodium (Lovenox) 40 mg DAILY SC Last administered on 08/28/18 09:04; Admin Dose 40 MG; Start 08/15/18 at 09:00 Multivitamins/ Minerals (Theragran-M) 1 tab DAILY GTB Last administered on 08/28/18 08:47; Admin Dose 1 TAB; Start 08/15/18 at 09:00 Ascorbic Acid (Vitamin C) 250 mg DAILY GTB Last administered on 08/28/18 08:47; Admin Dose 250 MG; Start 08/15/18 at 09:00 Zinc Sulfate (Zinc Sulfate) 220 mg DAILY GTB Last administered on 08/28/18 08:47; Admin Dose 220 MG; Start 08/15/18 at 09:00 Gabapentin (Neurontin Liquid) 300 mg BID GTB Last administered on 08/28/18 08:46; Admin Dose 300 MG; Start 08/15/18 at 09:00 Acetaminophen (Tylenol Liquid) 650 mg Q6 PRN GTB MILD PAIN(1-3)OR ELEVATED TEMP; Start 08/15/18 at 03:30 Hydromorphone HCl (Dilaudid) 0.5 mg Q3H PRN IV SEVERE PAIN LEVEL 7-10 Last administered on 08/27/18 15:38; Admin Dose 0.5 MG; Start 08/15/18 at 03:30 Albuterol (Ventolin Hfa) 4 puff Q6H RESP THERAPY INH Last administered on 08/28/18 08:05; Admin Dose 4 PUFF; Start 08/15/18 at 08:00 Ipratropium [place] (Atrovent Hfa) 4 puff Q6H RESP THERAPY INH Last admini stered on 08/28/18 08:06; Admin Dose 4 PUFF; Start 08/15/18 at 08:00 Sodium Hypochlorite (Dakins Diluted ()) 1 applic BID TP Last administered on 08/28/18 08:48; Admin Dose 1 APPLIC; Start 08/15/18 at 21:00 Famotidine (Pepcid) 20 mg DAILY GTB Last administered on 08/28/18 08:46; Admin Dose 20 MG; Start 08/16/18 at 09:00 Amikacin Sulfate (Amikacin Iv Per Pharmacy) AMIKACIN PER PHARMACY NOTE XX ; Start 08/27/18 at 11:30 Sodium Bicarbonate 100 meq/Dextrose 1,000 ml @ 75 mls/hr [id number] IV Last administered on 08/27/18at 13:56; Admin Dose 75 MLS/HR; Start 08/27/18 at 13:00; Stop 08/28/18 at 15:39 Amikacin Sulfate 300 mg/Sodium Chloride 101.2 ml @ 102 mls/hr Q48H IVPB Last administered on 08/27/18at 17:57; Admin Dose 102 MLS/HR; Start 08/27/18 at 15:00 TIARA CISNEROS MD Aug 28, 2018 11:15
[2018-08-28] MEDS ORDERED: CITRIC ACID/NA CITRATE 30 ML CUP PO ONE (11:30)
--- NOTE | 2018-08-28 13:21 | CONS ---
Assessment/Plan Assessment/Plan Hospital Course (Demo Recall) no fevers looks comfortable Allergies: Tetracyclines Antimicrobials: Amikacin Urine culture growing multidrug-resistant procidentia and Pseudomonas Indwelling: Trach, PEG, PICC line, suprapubic catheter Physical examination: Chronically ill-appearing wasted middle-aged man who is awake in no distress. Head atraumatic normocephalic sclera nonicteric vehicle mucosa dry neck is supple tracheostomy present chest rise symmetrical breath sounds diminished the bases. Heart: S1-S2. Abdomen soft bowel sounds present. Extremities wasted contractured Assessment: 1. Hypotension, rule out sepsis 2. Recurrent UTI 3. Chronic respiratory failure 4. Acute on chronic kidney disease 5. Incomplete quadriplegia 6. Pancytopenia 7. History of left breast nephrectomy 8. Multiple chronic decubitus ulcers 10. History of MRSA colonization Plan: Clinically unchanged, continue abx Consultation Date/Type/Reason Admit Date/Time Aug 15, 2018 at 02:30 Initial Consult Date 08/16/18 Type of Consult id Requesting Provider: JOSÉ ANTONIO MIRZA MD Date/Time of Note DATE: 08/28/18 TIME: 13:20 Exam/Review of Systems Exam Vitals Vital Signs Date Temp Pulse Resp B/P (MAP) Pulse Ox O2 O2 Flow FiO2 Time Delivery Rate 08/28/18 98.4 96 16 104/70 96 11:25 (81) 08/28/18 40 05:16 08/28/18 Mechanical 03:43 Ventilator Intake and Output 08/27/18 08/27/18 08/28/18 1515:00 23:00 07:00 IntakeIntake Total 3220 ml OutputOutput Total 600 ml BalanceBalance 2620 ml Results Result Diagram: 08/28/18 0817 08/28/18 0539 Results 24hrs Laboratory Tests Test 08/28/18 05:39 08/28/18 08:17 White Blood Count 5.5 # 7.5 # Red Blood Count 2.52 L 2.52 L Hemoglobin 7.1 L 7.2 L Hematocrit 24.1 L 23.9 L Mean Corpuscular Volume 95.6 94.8 Mean Corpuscular Hemoglobin 28.2 L 28.6 L Mean Corpuscular Hemoglobin Concent 29.5 L 30.1 L Red Cell Distribution Width 18.3 H 18.1 H Platelet Count 118 #L 124 L Mean Platelet Volume 12.4 H 12.5 H Immature Granulocytes % 0.500 H 0.500 H Neutrophils % 84.3 H 86.0 H Lymphocytes % 6.9 L 5.8 L Monocytes % 4.5 5.2 Eosinophils % 3.6 2.5 Basophils % 0.2 0.0 Nucleated Red Blood Cells % 0.0 0.0 Immature Granulocytes # 0.030 0.040 H Neutrophils # 4.6 6.4 Lymphocytes # 0.4 L 0.4 L Monocytes # 0.3 0.4 Eosinophils # 0.2 0.2 Basophils # 0.0 0.0 Nucleated Red Blood Cells # 0.0 0.0 Sodium Level 136 Potassium Level 3.6 # Chloride Level 99 Carbon Dioxide Level 30 Anion Gap 7 Blood Urea Nitrogen 65 H Creatinine 1.38 H Est Glomerular Filtrat Rate mL/min 57 L Glucose Level 376 #H Calcium Level 7.6 L B-Type Natriuretic Peptide 574 H Medications Medication Current Medications Acetaminophen/ Hydrocodone Bitart ([place] (5/325)) 1 tab Q4H PRN GTB PAIN LEVEL 7-10 Last administered on 08/28/18 05:00; Admin Dose 1 TAB; Start 08/15/18 at 03:30 Diphenhydramine HCl (Benadryl) 25 mg HS PRN PO INSOMNIA Last administered on 08/20/18 20:55; Admin Dose 25 MG; Start 08/15/18 at 03:30 Ondansetron HCl (Zofran Inj) 4 mg Q4H PRN IV NAUSEA AND/OR VOMITING; Start 08/15/18 at 03:30 Levetiracetam (Keppra Liquid) 500 mg BID GTB Last administered on 08/28/18 08:46; Admin Dose 500 MG; Start 08/15/18 at 09:00 Quetiapine Fumarate (Seroquel) 75 mg BID GTB Last administered on 08/28/18 08:47; Admin Dose 75 MG; Start 08/15/18 at 09:00 Polyethylene Glycol (Miralax) 17 gm DAILY GTB Last administered on 08/27/18 09:12; Admin Dose 17 GM; Start 08/15/18 at 09:00 Enoxaparin Sodium (Lovenox) 40 mg DAILY SC Last administered on 08/28/18 09:04; Admin Dose 40 MG; Start 08/15/18 at 09:00 Multivitamins/ Minerals (Theragran-M) 1 tab DAILY GTB Last administered on 08/28/18 08:47; Admin Dose 1 TAB; Start 08/15/18 at 09:00 Ascorbic Acid (Vitamin C) 250 mg DAILY GTB Last administered on 08/28/18 08:47; Admin Dose 250 MG; Start 08/15/18 at 09:00 Zinc Sulfate (Zinc Sulfate) 220 mg DAILY GTB Last administered on 08/28/18 08:47; Admin Dose 220 MG; Start 08/15/18 at 09:00 Gabapentin (Neurontin Liquid) 300 mg BID GTB Last administered on 08/28/18 08:46; Admin Dose 300 MG; Start 08/15/18 at 09:00 Acetaminophen (Tylenol Liquid) 650 mg Q6 PRN GTB MILD PAIN(1-3)OR ELEVATED TEMP; Start 08/15/18 at 03:30 Hydromorphone HCl (Dilaudid) 0.5 mg Q3H PRN IV SEVERE PAIN LEVEL 7-10 Last administered on 08/27/18 15:38; Admin Dose 0.5 MG; Start 08/15/18 at 03:30 Albuterol (Ventolin Hfa) 4 puff Q6H RESP THERAPY INH Last administered on 08/28/18 13:18; Admin Dose 4 PUFF; Start 08/15/18 at 08:00 Ipratropium [place] (Atrovent Hfa) 4 puff Q6H RESP THERAPY INH Last administered on 08/28/18 13:18; Admin Dose 4 PUFF; Start 08/15/18 at 08:00 Sodium Hypochlorite (Dakins Diluted (40)) 1 applic BID TP Last administered on 08/28/18 08:48; Admin Dose 1 APPLIC; Start 08/15/18 at 21:00 Famotidine (Pepcid) 20 mg DAILY GTB Last administered on 08/28/18 08:46; Admin Dose 20 MG; Start 08/16/18 at 09:00 Amikacin Sulfate (Amikacin Iv Per Pharmacy) AMIKACIN PER PHARMACY NOTE XX ; Start 08/27/18 at 11:30 Sodium Bicarbonate 100 meq/Dextrose 1,000 ml @ 75 mls/hr [id number] IV Last administered on 08/27/18at 13:56; Admin Dose 75 MLS/HR; Start 08/27/18 at 13:00; Stop 08/28/18 at 15:39 Amikacin Sulfate 300 mg/Sodium Chloride 101.2 ml @ 102 mls/hr Q48H IVPB Last administered on 08/27/18at 17:57; Admin Dose 102 MLS/HR; Start 08/27/18 at 15:00 Citric Acid/ Sodium Citrate (Bicitra) 30 ml BID PO ; Start 08/28/18 at 21:00 REGINALDO CHERY NP Aug 28, 2018 13:21
--- NOTE | 2018-08-28 14:43 | PN ---
DATE: 08/28/2018 SUBJECTIVE: The patient is resting comfortably. He is on long-term ventilator support through trach eostomy. No tracheostomy problems per nursing staff. No excessive secretions, no bleeding, no obstr uction. His breathing appears comfortable synchronized with the ventilator. PHYSICAL EXAMINATION: VITAL SIGNS: Show temperature of 98.4, blood pressure 104/70, pulse rate 96, respirations 16, pulse oximetry 96% saturation. NECK: Tracheal secretions are clear. HEART: Regular rhythm. CHEST: Breath sounds are diminished in both the lower lung tier[place] with a few occasional rales and rh onchi, mostly clear in the upper and mid lung tierney. ABDOMEN: Soft. Tolerating tube feedings, no distention or tenderness is present. EXTREMITIES: Show no edema. He is paraplegic. LABORATORY DATA: Show sodium 136, potassium 3.6, BUN 65, creatinine 1.38, glucose 376, there is ques tionable as the patient has a history of diabetes and his blood glucose has been consistently within normal range in the past The CBC shows a WBC 7500, hemoglobin 7.2, hematocrit 23.9, platelets decreas ed 124,000 but seems to be better compared to before. Urine culture is reported to show growth of Pseudomonas aeruginosa and Providencia stuartii. This is being treated with amikacin, to which both organisms are sensitive. IMPRESSION: 1. Chronic ventilator dependent respiratory failure. 2. Resolving pneumonia and sepsis. 3. Urinary tract infection. 4. Chronic kidney disease, gradually improving. 5. Chronic anemia. 6. History of nephrolithiasis. 7. Status post left nephrectomy. 8. Paraplegia secondary to spinal cord injury. 9. History of bipolar disorder. PLAN: 1. Continue long-term ventilator support. 2. Continue antibiotics. We will continue antibiotics per infectious disease oim consultant. At presen t he is on the case. 3. Continue bronchodilator inhalation therapy. 4. Continue tube feeding. 5. Continue deep venous thrombosis prophylaxis. Discussed with the nurse practitioner Kierra, if his pulmonary status is stable, arrangements can be ma de to have him transferred to long-term care facility when other consultants and physicians involved in his care agree. He should be left on long-term ventilator support. Dictated By: HUMBERTO PEREZ MD SR/NTS Conf#: [id number] DID#: [id number] CC: JOSÉ ANTONIO MIRZA MD;*EndCC*
--- NOTE | 2018-08-28 15:03 | PN ---
Date/Time of Note Date/Time of Note DATE: 08/28/18 TIME: 15:02 Assessment/Plan VTE Prophylaxis Risk score (from Ns)>0 risk: 6 SCD applied (from Ns): No SCD contraindicated: patient refusal Pharmacological prophylaxis: LMWH Lines/Catheters IV Catheter Type (from [facility]): PICC Line Central line still needed: Yes Urinary Cath still in place: Yes Reason Cath still needed: urinary retention Assessment/Plan Hospital Course Patient with urine coming out from suprapubic catheter yesterday Dr. Marquez is asked to see patient in urology consultation status post suprapubic catheter change continue to monitor patient had an episode of hypotension. Patient is currently on amikacin for polymicrobial urinary tract infection. Continue to monitor renal function. Assessment/Plan - Polymicrobial UTI, currently on amikacin, continue antibiotics per ID. Dr. Maciel is following in infection disease consultation. - Hyperkalemia, resolved. - S/p sepsis secondary to pneumonia, continue antibiotics per ID r ecommendations. - Large tracheal opening, s/p evaluation by Dr Woodruff in ENT consultation with recommendation for free flap closure. Patient was evaluated at [facility] [facility] refused to have surgery, not cooperative with care. - Ventilator dependent respiratory failure, continue pulmonary toilet and bronchodilators. Dr Ames is following in pulmonology consultation. - Acute on chronic renal failure. Continue to monitor BUN and creatinine. - Anemia of chronic disease. Continue Epogen. - Neurogenic bladder with suprapubic catheter. - Dysphagia with gastrostomy tube. - Seizures, continue Keppra - Multiple decubitus ulcers present on admission. - Cervical spine injury with paraplegia. - Bipolar disorder with psychosis. - Hx of right nephrectomy - Hx of left renal nephrolithiasis, hx of lithotripsy with insertion and subsequent removal of ureteral JJ stent. Disposition: [facility] and rehab when patient is stable and cleared by consultants. Further recommendations based on clinical course. Plan of care discussed with Dr. Barreto. Result Diagram: 08/28/18 0817 08/28/18 0539 Results 24hrs Laboratory Tests Test 08/28/18 05:39 08/28/18 08:17 White Blood Count 5.5 # 7.5 # Red Blood Count 2.52 L 2.52 L Hemoglobin 7.1 L 7.2 L Hematocrit 24.1 L 23.9 L Mean Corpuscular Volume 95.6 94.8 Mean Corpuscular Hemoglobin 28.2 L 28.6 L Mean Corpuscular Hemoglobin Concent 29.5 L 30.1 L Red Cell Distribution Width 18.3 H 18.1 H Platelet Count 118 #L 124 L Mean Platelet Volume 12.4 H 12.5 H Immature Granulocytes % 0.500 H 0.500 H Neutrophils % 84.3 H 86.0 H Lymphocytes % 6.9 L 5.8 L Monocytes % 4.5 5.2 Eosinophils % 3.6 2.5 Basophils % 0.2 0.0 Nucleated Red Blood Cells % 0.0 0.0 Immature Granulocytes # 0.030 0.040 H Neutrophils # 4.6 6.4 Lymphocytes # 0.4 L 0.4 L Monocytes # 0.3 0.4 Eosinophils # 0.2 0.2 Basophils # 0.0 0.0 Nucleated Red Blood Cells # 0.0 0.0 Sodium Level 136 Potassium Level 3.6 # Chloride Level 99 Carbon Dioxide Level 30 Anion Gap 7 Blood Urea Nitrogen 65 H Creatinine 1.38 H Est Glomerular Filtrat Rate mL/min 57 L Glucose Level 376 #H Calcium Level 7.6 L B-Type Natriuretic Peptide 574 H Exam/Review of Systems Exam Vitals Vital Signs Date Temp Pulse Resp B/P (MAP) Pulse Ox O2 O2 Flow FiO2 Time Delivery Rate 08/28/18 100 24 98 40 13:42 08/28/18 98.4 104/70 11:25 (81) 08/28/18 Mechanical 03:43 Ventilator Intake and Output 08/27/18 08/27/18 08/28/18 1515:00 23:00 07:00 IntakeIntake Total 3220 ml OutputOutput Total 600 ml BalanceBalance 2620 ml Exam Constitutional: alert, oriented Neck: supple, other (Tracheostomy) Respiratory: diminished breath sounds Cardiovascular: regular rate and rhythm Gastrointestinal: soft, non-tender, other (G-tube) Genitourinary - Male: other (Suprapubic catheter) Musculoskeletal: other (Contracted ) Extremities: normal pulses Neurological: confused Skin: other (Multiple wounds) Results Results 24hrs Laboratory Tests Test 08/28/18 05:39 08/28/18 08:17 White Blood Count 5.5 # 7.5 # Red Blood Count 2.52 L 2.52 L Hemoglobin 7.1 L 7.2 L Hematocrit 24.1 L 23.9 L Mean Corpuscular Volume 95.6 94.8 Mean Corpuscular Hemoglobin 28.2 L 28.6 L Mean Corpuscular Hemoglobin Concent 29.5 L 30.1 L Red Cell Distribution Width 18.3 H 18.1 H Platelet Count 118 #L 124 L Mean Platelet Volume 12.4 H 12.5 H Immature Granulocytes % 0.500 H 0.500 H Neutrophils % 84.3 H 86.0 H Lymphocytes % 6.9 L 5.8 L Monocytes % 4.5 5.2 Eosinophils % 3.6 2.5 Basophils % 0.2 0.0 Nucleated Red Blood Cells % 0.0 0.0 Immature Granulocytes # 0.030 0.040 H Neutrophils # 4.6 6.4 Lymphocytes # 0.4 L 0.4 L Monocytes # 0.3 0.4 Eosinophils # 0.2 0.2 Basophils # 0.0 0.0 Nucleated Red Blood Cells # 0.0 0.0 Sodium Level 136 Potassium Level 3.6 # Chloride Level 99 Carbon Dioxide Level 30 Anion Gap 7 Blood Urea Nitrogen 65 H Creatinine 1.38 H Est Glomerular Filtrat Rate mL/min 57 L Glucose Level 376 #H Calcium Level 7.6 L B-Type Natriuretic Peptide 574 H Medications Medication Current Medications Acetaminophen/ Hydrocodone Bitart ([place] (5/325)) 1 tab Q4H PRN GTB PAIN LEVEL 7-10 Last administered on 08/28/18at 05:00; Admin Dose 1 TAB; Start 08/15/18 at 03:30 Diphenhydramine HCl (Benadryl) 25 mg HS PRN PO INSOMNIA Last administered on 08/20/18at 20:55; Admin Dose 25 MG; Start 08/15/18 at 03:30 Ondansetron HCl (Zofran Inj) 4 mg Q4H PRN IV NAUSEA AND/OR VOMITING; Start 08/15/18 at 03:30 Levetiracetam (Keppra Liquid) 500 mg BID GTB Last administered on 08/28/18at 08:46; Admin Dose 500 MG; Start 08/15/18 at 09:00 Quetiapine Fumarate (Seroquel) 75 mg BID GTB Last administered on 08/28/18at 0 8:47; Admin Dose 75 MG; Start 08/15/18 at 09:00 Polyethylene Glycol (Miralax) 17 gm DAILY GTB Last administered on 08/27/18 09:12; Admin Dose 17 GM; Start 08/15/18 at 09:00 Enoxaparin Sodium (Lovenox) 40 mg DAILY SC Last administered on 08/28/18 09:04; Admin Dose 40 MG; Start 08/15/18 at 09:00 Multivitamins/ Minerals (Theragran-M) 1 tab DAILY GTB Last administered on 08/28/18 08:47; Admin Dose 1 TAB; Start 08/15/18 at 09:00 Ascorbic Acid (Vitamin C) 250 mg DAILY GTB Last administered on 08/28/18 08:47; Admin Dose 250 MG; Start 08/15/18 at 09:00 Zinc Sulfate (Zinc Sulfate) 220 mg DAILY GTB Last administered on 08/28/18 08:47; Admin Dose 220 MG; Start 08/15/18 at 09:00 Gabapentin (Neurontin Liquid) 300 mg BID GTB Last administered on 08/28/18 08:46; Admin Dose 300 MG; Start 08/15/18 at 09:00 Acetaminophen (Tylenol Liquid) 650 mg Q6 PRN GTB MILD PAIN(1-3)OR ELEVATED TEMP; Start 08/15/18 at 03:30 Hydromorphone HCl (Dilaudid) 0.5 mg Q3H PRN IV SEVERE PAIN LEVEL 7-10 Last administered on 08/27/18 15:38; Admin Dose 0.5 MG; Start 08/15/18 at 03:30 Albuterol (Ventolin Hfa) 4 puff Q6H RESP THERAPY INH Last administered on 08/28/18 13:18; Admin Dose 4 PUFF; Start 08/15/18 at 08:00 Ipratropium [place] (Atrovent Hfa) 4 puff Q6H RESP THERAPY INH Last administered on 08/28/18 13:18; Admin Dose 4 PUFF; Start 08/15/18 at 08:00 Sodium Hypochlorite (Dakins Diluted ()) 1 applic BID TP Last administered on 08/28/18 08:48; Admin Dose 1 APPLIC; Start 08/15/18 at 21:00 Famotidine (Pepcid) 20 mg DAILY GTB Last administered on 08/28/18at 08:46; Admin Dose 20 MG; Start 08/16/18 at 09:00 Amikacin Sulfate (Amikacin Iv Per Pharmacy) AMIKACIN PER PHARMACY NOTE XX ; Start 08/27/18 at 11:30 Sodium Bicarbonate 100 meq/Dextrose 1,000 ml @ 75 mls/hr [id number] IV Last administered on 08/27/18at 13:56; Admin Dose 75 MLS/HR; Start 08/27/18 at 13:00; Stop 08/28/18 at 15:39 Citric Acid/ Sodium Citrate (Bicitra) 30 ml BID PO ; Start 08/28/18 at 21:00 Amikacin Sulfate 300 mg/Sodium Chloride 101.2 ml @ 102 mls/hr Q72H IVPB ; Start 08/30/18 at 18:00 AISSATOU DUNCAN Aug 28, 2018 15:03
[2018-08-28] MEDS ORDERED: CITRIC ACID/NA CITRATE 30 ML CUP PO SCH (21:00)
--- NOTE | 2018-08-29 00:39 | DS ---
Date/Time of Note Date/Time of Note DATE: 08/29/18 TIME: 00:37 Discharge Summary Admission/Discharge Info Admit Date/Time Aug 15, 2018 at 02:30 Discharge Date/Time Aug 28, 2018 at 19:39 Patient Condition: Stable Hx of Present Illness The patient is a 43-year-old male known to me from previous admissions. Patient had paraplegia secondary to cervical spine injury that he sustained more than 20 years ago, ventilator dependent respiratory failure with tracheostomy, neurogenic bladder with suprapubic catheter, chronic kidney disease, status post right nephrectomy, left renal nephrolithiasis, and bipolar disorder. Patient was recently treated at [facility] for sepsis secondary to pneumonia and urinary tract infection. Patient was noted to have large tracheostomy opening and was evaluated by ENT with recommendation to transfer to tertiary care facility for possible tracheostomy stoma closure with flap. Patient was transferred to [facility] hospital for possible large tracheostomy stoma closure surgery last week. Patient is transferred back from [facility] since patient refused to have any tracheal stoma closure with flap and was not corporative. Hospital Course Patient with urine coming out from suprapubic catheter yesterday Dr. Marquez is asked to see patient in urology consultation status post suprapubic catheter change continue to monitor patient had an episode of hypotension. Patient is currently on amikacin for polymicrobial urinary tract infection. Continue to monitor renal function. Assessment/Plan - Polymicrobial UTI, currently on amikacin, continue for [address] Maciel is following in infection disease consultation. - Hyperkalemia, resolved. - S/p sepsis secondary to pneumonia, continue antibiotics per ID recommendations. - Large tracheal opening, s/p evaluation by Dr Woodruff in ENT consultation with recommendation for free flap closure. Patient was evaluated at [facility] [employer] [facility] [employer] refused to have surgery, not cooperative with care. - Ventilator dependent respiratory failure, continue pulmonary toilet and bronchodilators. Dr Ames is following in pulmonology consultation. - Acute on chronic renal failure. Continue to monitor BUN and creatinine. - Anemia of chronic disease. Continue Epogen. - Neurogenic bladder with suprapubic catheter. - Dysphagia with gastrostomy tube. - Seizures, continue Keppra - Multiple decubitus ulcers present on admission. - Cervical spine injury with paraplegia. - Bipolar disorder with psychosis. - Hx of right nephrectomy - Hx of left renal nephrolithiasis, hx of lithotripsy with insertion and subsequent removal of ureteral JJ stent. Disposition: [facility] and rehab when patient is stable and cleared by consultants. Plan of care discussed with Dr. Barreto. Home Meds Reported Medications Tramadol Hcl* (Ultram*) 50 Mg Tablet, 50 MG GTB BID PRN for BREAKTHROUGH PAIN, TAB 07/18/18 Acetaminophen* (Acetaminophen*) 500 MG Extra Strength Tablet, 1000 MG GTB Q4 PRN for PAIN LEVEL 4-6, TAB 07/18/18 Acetaminophen* (Acetaminophen*) 650 Mg Tablet, 650 MG GTB Q4 PRN for PAIN LEVEL 1-3, #30 TAB AND FEVER 07/18/18 Glycopyrrolate* (Glycopyrrolate*) 1 Mg Tablet, 1 MG GTB TID, TAB 07/18/18 Epoetin [place] (Procrit) 4,000 Unit/1 Ml Vial, 4000 UNIT IJ MON, WED,SAT,, VIAL HOLD IF HGB ABOVE 10 07/18/18 Famotidine* (Pepcid*) 20 Mg Tablet, 20 MG GTB DAILY, #30 TAB 07/18/18 Multivitamins* (Theragran*) 1 Tab Tab, 1 TAB GTB DAILY, TAB 07/18/18 Midodrine* (Midodrine*) 5 Mg Tablet, 5 MG GTB BID, TAB FOR SBP BELOW 90 07/18/18 Enoxaparin Sodium* (Lovenox*) 30 Mg/0.3 Ml Disp.syrin, 30 MG SQ DAILY, SYR 07/18/18 Hydromorphone Hcl* (Dilaudid*) 2 Mg Tablet, 2 MG PO Q4H PRN for PAIN 7-9, TAB 07/18/18 Citric Acid/Sodium Citrate (Sod Citrate-Citric Acid Soln) 473 Ml Solution, 30 ML GTB TID 07/18/18 Atenolol* (Atenolol*) 25 Mg Tablet, 12.5 MG GTB BID, #60 TAB 07/18/18 Zinc Sulfate* (Zinc Sulfate*) 220 Mg Tablet, 220 MG GTB DAILY, TAB 05/14/18 Cran/Vitc/Mannose/Inulin/Brom (Uti-Stat Liquid) 3,875 Mg/30 Ml Liquid, 30 ML GTB DAILY 05/14/18 Quetiapine Fumarate* (Seroquel*) 50 Mg Tablet, 50 MG GTB BID, TAB 05/14/18 Magnesium Hydroxide* (Milk Of Magnesia*) 400 Mg/5 Ml Oral.susp, 30 ML GTB NEEDED, ML END DATE 07/09/18 05/14/18 Levetiracetam* (Keppra* (Ped)) 100 Mg/Ml Liq, 5 ML GTB Q12H for 30 Days, BOTTLE 05/14/18 Na Phos,M-B/Na Phos,Di-Ba (Fleet Enema Extra) 230 Ml Enema, 1 APPLIC RC NEEDED, ENEMA END DATE 07/09/18 05/14/18 Bisacodyl* (Bisacodyl*) 10 Mg Supp, 10 MG DE NEEDED, SUPP END DATE 07/09/18 05/14/18 Cranberry Extract (Cranberry) 425 Mg Capsule, 425 MG GTB DAILY, CAP 05/14/18 Docusate Sodium* (Colace*) 100 Mg Capsule, 100 MG GTB QHS, #30 CAP 05/14/18 Chlorhexidine Gluconate (Peridex) 473 Ml Mouthwash, 15 ML MM Q12H, BOTTLE 05/14/18 Albuterol Sulfate* (Albuterol Sulfate* Neb) 0.083%-3 Ml Neb, 2.5 MG NEB Q6H PRN for WHEEZING AND SOB, #30 VIAL AND Q3H NEEDED 05/14/18 Primary Care Provider Hitesh Barreto MD Time spent on discharge: > 30 minutes Pending Labs Laboratory Tests Test 08/28/18 05:39 08/28/18 08:17 White Blood Count 5.5 10^3/ul (4.8-10.8) 7.5 10^3/ul (4.8-10.8) Red Blood Count 2.52 10^6/ul (4.70-6.10) 2.52 10^6/ul (4.70-6.10) Hemoglobin 7.1 g/dl (14.0-18.0) 7.2 g/dl (14.0-18.0) Hematocrit 24.1 % (42.0-52.0) 23.9 % (42.0-52.0) Mean Corpuscular Volume 95.6 fl (82.0-101.0) 94.8 fl (82.0-101.0) Mean Corpuscular 28.2 pg (29.0-33.0) 28.6 pg (29.0-33.0) Hemoglobin Mean Corpuscular 29.5 g/dl (32.0-37.0) 30.1 g/dl (32.0-37.0) Hemoglobin Concent Red Cell Distribution 18.3 % (11.5-14.5) 18.1 % (11.5-14.5) Width Platelet Count 118 10^3/UL (140-415) 124 10^3/UL (140-415) Mean Platelet Volume 12.4 fl (7.4-10.4) 12.5 fl (7.4-10.4) Immature Granulocytes % 0.500 % (0.001-0.429) 0.500 % (0.001-0.429) Neutrophils % 84.3 % (39.0-77.0) 86.0 % (39.0-77.0) Lymphocytes % 6.9 % (15.0-51.0) 5.8 % (15.0-51.0) Monocytes % 4.5 % (0.0-11.0) 5.2 % (0.0-11.0) Eosinophils % 3.6 % (0.0-7.0) 2.5 % (0.0-7.0) Basophils % 0.2 % (0.0-2.0) 0.0 % (0.0-2.0) Nucleated Red Blood Cells 0.0 /100WBC (0.0-0.0) 0.0 /100WBC (0.0-0.0) % Immature Granulocytes # 0.030 10^3/ul (0.0-0.031) 0.040 10^3/ul (0.0-0.031) Neutrophils # 4.6 10^3/ul (1.6-7.5) 6.4 10^3/ul (1.6-7.5) Lymphocytes # 0.4 10^3/ul (0.8-2.9) 0.4 10^3/ul (0.8-2.9) Monocytes # 0.3 10^3/ul (0.3-0.9) 0.4 10^3/ul (0.3-0.9) Eosinophils # 0.2 10^3/ul (0.0-0.5) 0.2 10^3/ul (0.0-0.5) Basophils # 0.0 10^3/ul (0.0-0.1) 0.0 10^3/ul (0.0-0.1) Nucleated Red Blood Cells 0.0 10^3/ul (0.0-0.0) 0.0 10^3/ul (0.0-0.0) # Sodium Level 136 mmol/L (135-144) Potassium Level 3.6 mmol/L (3.5-5.1) Chloride Level 99 mmol/L (97-110) Carbon Dioxide Level 30 mmol/L (21-31) Anion Gap 7 (5-13) Blood Urea Nitrogen 65 mg/dl (7-20) Creatinine 1.38 mg/dl (0.61-1.24) Est Glomerular Filtrat 57 mL/min (>60) Rate mL/min Glucose Level 376 mg/dl (70-220) Calcium Level 7.6 mg/dl (8.4-10.2) B-Type Natriuretic 574 PG/ML (0-125) Peptide AISSATOU DUNCAN Aug 29, 2018 00:39
[2018-08-30] MEDS ORDERED: AMIKACIN 300 MG in SOD CHLORIDE 0.9% 100 ML IVPB SCH ×2 (15:00→18:00)
== END 2018-08-28 19:39 | DRG 870 ==
LOC: TEL 08-15 02:30
PROVIDERS: ADMIT Internal Medicine; ATTEND Internal Medicine
PROC: 5A1955Z Respiratory Ventilation, Greater than 96 Consecutive Hours (ICD-10-PCS; principal; 2018-08-15)
PROC: 0B21XFZ Change Tracheostomy Device in Trachea, External Approach (ICD-10-PCS; 2018-08-23)
PROC: 0T2BX0Z Change Drainage Device in Bladder, External Approach (ICD-10-PCS; 2018-08-28)
DX: A41.9 Sepsis, unspecified organism (principal); J18.9 Pneumonia, unspecified organism; N17.0 Acute kidney failure with tubular necrosis; J96.10 Chronic respiratory failure, unspecified whether with hypoxia or hypercapnia; G82.20 Paraplegia, unspecified; N39.0 Urinary tract infection, site not specified; B37.49 Other urogenital candidiasis; T83.090A Other mechanical complication of cystostomy catheter, initial encounter; N18.3 Chronic kidney disease, stage 3 (moderate); N31.9 Neuromuscular dysfunction of bladder, unspecified; F31.9 Bipolar disorder, unspecified; D63.8 Anemia in other chronic diseases classified elsewhere; R56.9 Unspecified convulsions; L89.90 Pressure ulcer of unspecified site, unspecified stage; J95.09 Other tracheostomy complication; E87.5 Hyperkalemia; Y83.8 Other surgical procedures as the cause of abnormal reaction of the patient, or of later complication, without mention of misadventure at the time of the procedure; M24.50 Contracture, unspecified joint; B96.5 Pseudomonas (aeruginosa) (mallei) (pseudomallei) as the cause of diseases classified elsewhere; B96.89 Other specified bacterial agents as the cause of diseases classified elsewhere; Z99.11 Dependence on respirator [ventilator] status; Z93.1 Gastrostomy status
CPT/HCPCS: 71045; 80048; 82565; 83880; 84520; 85025; 87086; 94002; 94003; 94640; 94664; J0278; J1170; J1650; J2185; J2916; J2997; J3370; J7040; J7050; J7070

== ENCOUNTER 2018-09-02 08:09 | Inpatient (IN) | payer MEDICARE ==
[~2018-09-02] VITALS: Ht 167.6 cm; Wt 58.6 kg
[2018-09-02] VITALS (25 sets, daily range): BP systolic 91–108; BP diastolic 52–77; PULSE 98–109; RESP 16–24
[~2018-09-02 08:09] MED LIST changes: +ACET-2047 PO; +AMIN30LI GTB; +ASCO500C7 GTB; +BEN25 GTB; +ENOX40DI14 SC; +FAMO20TA18 GTB; +GABA250S2 GTB; +HYDR-4011 GTB; +MULT-886 GTB; +ONDA4TAB13 GTB; +POTA473S3 GTB; +QUET25TA GTB
[2018-09-02] MEDS ORDERED: CEFEPIME 2GM/50 ML (PMX) 50 ML IVPB STA (08:13)
[2018-09-02] MEDS ORDERED: VANCOMYCIN 1 GM (PMX) 250 ML IVPB ONE (08:30)
[2018-09-02] MEDS ORDERED: SOD CHLORIDE 0.9% 0 ML IV ONE (08:45)
[2018-09-02] MEDS ORDERED: ACETAMINOPHEN 650 MG SUPP PR ONE (09:00)
[2018-09-02] MEDS ORDERED: SODIUM CHLORIDE 0.9% 1L BAG IV* STA (09:20)
[2018-09-02] MEDS ORDERED: NORepinephrine 8MG/250 ML (PMX 250 ML IV STA (09:41)
--- NOTE | 2018-09-02 10:45 | ERD ---
ER Documentation Chief Complaint Chief Complaint HYPOTENSIVE WITH DECREASED LOC HPI Patient is a 43-year-old male who is a quadriplegic with tracheostomy and ventilator who presents altered. He is a GCS of 3. He was brought in by a mbulance. Please note the history and physical exam is limited secondary to the patient's mental status at this time. The patient came from a half-way facility with a low blood pressure of 50/20. He was recently discharged on August 29. His primary doctor is Dr. Barreto. ROS All systems reviewed and are negative except as per history of present illness. Medications Home Meds Reported Medications Cran/Vitc/Mannose/Inulin/Brom (Uti-Stat Liquid) 3,875 Mg/30 Ml Liquid, 3875 MG GTB DAILY 09/02/18 Cranberry Extract (Cranberry) 425 Mg Capsule, 425 MG GTB DAILY, CAP 09/02/18 Amino Acids/Protein Hydrolys (PRO-STAT LIQUID) 30 Ml Liquid.pkt, 30 ML GTB DAILY sugar free 09/02/18 Multivitamin-Min/Iron/FA/Vit K (Multi-Day Plus Minerals Tablet) 1 Each Tablet, 1 EACH GTB DAILY, TAB 09/02/18 Ascorbic Acid* (Vitamin C*) 500 Mg Capsule.sa, 500 MG GTB DAILY, CAP 09/02/18 Zinc Sulfate* (Zinc Sulfate*) 220 Mg Tablet, 220 MG GTB DAILY, TAB 09/02/18 Acetaminophen* (Acetaminophen*) 650 Mg Tablet, 650 MG PO DAILY PRN for pain management, #30 TAB 09/02/18 Acetaminophen* (Acetaminophen*) 650 Mg Tablet, 650 MG GTB trach change PRN for PAIN AND OR ELEVATED TEMP, #30 TAB 09/02/18 Acetaminophen* (Acetaminophen*) 500 MG Extra Strength Tablet, 1000 MG GTB Q4 PRN for MODERATE PAIN LEVEL 4-6, TAB 09/02/18 Acetaminophen* (Acetaminophen*) 650 Mg Tablet, 650 MG GTB Q4 PRN for MILD PAIN LEVEL 1-3, #30 TAB and fever 09/02/18 Quetiapine Fumarate* (Seroquel*) 25 Mg Tablet, 75 MG GTB BID, #120 TAB 09/02/18 Ondansetron Hcl* (Zofran*) 4 Mg Tab, 4 MG GTB Q4H PRN for NAUSEA AND OR VOMITING, TAB 09/02/18 Levetiracetam* (Keppra* (Ped)) 100 Mg/Ml Liq, 500 MG GTB BID for 30 Days, BOTTLE 09/02/18 Hydrocodone/Acetaminophen (Cameron 5-325 Tablet) 1 Each Tablet, 1 EACH GTB Q4H WHILE AWAKE PRN for SEVERE PAIN LEVEL 7-10, TAB 09/02/18 Gabapentin* (Gabapentin* Liq) 250 Mg/5 Ml Solution, 300 MG GTB BID, ML 09/02/18 Famotidine* (Famotidine*) 20 Mg Tablet, 20 MG GTB DAILY, #30 TAB 09/02/18 Enoxaparin Sodium* (Lovenox*) 40 Mg/0.4 Ml Syringe, 40 MG SC DAILY, SYR 09/02/18 Diphenhydramine Hcl* (Benadryl*) 25 Mg Cap, 25 MG GTB QHS PRN for ITCHING, CAP 09/02/18 Citric Acid/Potassium Citrate (Cytra-K Oral Solution) 473 Ml Solution, 30 ML GTB BID 09/02/18 Discontinued Reported Medications Tramadol Hcl* (Ultram*) 50 Mg Tablet, 50 MG GTB BID PRN for BREAKTHROUGH PAIN, TAB 07/18/18 Acetaminophen* (Acetaminophen*) 500 MG Extra Strength Tablet, 1000 MG GTB Q4 PRN for PAIN LEVEL 4-6, TAB 07/18/18 Acetaminophen* (Acetaminophen*) 650 Mg Tablet, 650 MG GTB Q4 PRN for PAIN LEVEL 1-3, #30 TAB AND FEVER 07/18/18 Glycopyrrolate* (Glycopyrrolate*) 1 Mg Tablet, 1 MG GTB TID, TAB 07/18/18 Epoetin Prince (Procrit) 4,000 Unit/1 Ml Vial, 4000 UNIT IJ MON, WED,SAT,, VIAL HOLD IF HGB ABOVE 10 07/18/18 Famotidine* (Pepcid*) 20 Mg Tablet, 20 MG GTB DAILY, #30 TAB 07/18/18 Multivitamins* (Theragran*) 1 Tab Tab, 1 TAB GTB DAILY, TAB 07/18/18 Midodrine* (Midodrine*) 5 Mg Tablet, 5 MG GTB BID, TAB FOR SBP BELOW 90 07/18/18 Enoxaparin Sodium* (Lovenox*) 30 Mg/0.3 Ml Disp.syrin, 30 MG SQ DAILY, SYR 07/18/18 Hydromorphone Hcl* (Dilaudid*) 2 Mg Tablet, 2 MG PO Q4H PRN for PAIN 7-9, TAB 07/18/18 Citric Acid/Sodium Citrate (Sod Citrate-Citric Acid Soln) 473 Ml Solution, 30 ML GTB TID 07/18/18 Atenolol* (Atenolol*) 25 Mg Tablet, 12.5 MG GTB BID, #60 TAB 07/18/18 Zinc Sulfate* (Zinc Sulfate*) 220 Mg Tablet, 220 MG GTB DAILY, TAB 05/14/18 Cran/Vitc/Mannose/Inulin/Brom (Uti-Stat Liquid) 3,875 Mg/30 Ml Liquid, 30 ML GTB DAILY 05/14/18 Quetiapine Fumarate* (Seroquel*) 50 Mg Tablet, 50 MG GTB BID, TAB 05/14/18 Magnesium Hydroxide* (Milk Of Magnesia*) 400 Mg/5 Ml Oral.susp, 30 ML GTB NEEDED, ML END DATE 07/09/18 05/14/18 Levetiracetam* (Keppra* (Ped)) 100 Mg/Ml Liq, 5 ML GTB Q12H for 30 Days, BOTTLE 05/14/18 Na Phos,M-B/Na Phos,Di-Ba (Fleet Enema Extra) 230 Ml Enema, 1 APPLIC RC NEEDED, ENEMA END DATE 07/09/18 05/14/18 Bisacodyl* (Bisacodyl*) 10 Mg Supp, 10 MG GA NEEDED, SUPP END DATE 07/09/18 05/14/18 Cranberry Extract (Cranberry) 425 Mg Capsule, 425 MG GTB DAILY, CAP 05/14/18 Docusate Sodium* (Colace*) 100 Mg Capsule, 100 MG GTB QHS, #30 CAP 05/14/18 Chlorhexidine Gluconate (Peridex) 473 Ml Mouthwash, 15 ML MM Q12H, BOTTLE 05/14/18 Albuterol Sulfate* (Albuterol Sulfate* Neb) 0.083%-3 Ml Neb, 2.5 MG NEB Q6H PRN for WHEEZING AND SOB, #30 VIAL AND Q3H NEEDED 05/14/18 Allergies Allergies: Coded Allergies: Tetracyclines (Verified Allergy, Unknown, 07/18/18) PMhx/Soc History of Surgery: Yes (cervical spine surgery) Anesthesia Reaction: No Hx Neurological Disorder: Yes (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) Hx Respiratory Disorders: Yes (Trach-Vent, PNA) Hx Cardiac Disorders: No Hx Psychiatric Problems: Yes (bipolar with psychosis) Hx Miscellaneous Medical Probl: No Hx Alcohol Use: No Hx Substance Use: No Hx Tobacco Use: No Smoking Status: Never smoker FmHx Unable to obtain Physical Exam Vitals Vital Signs Date Temp Pulse Resp B/P (MAP) Pulse Ox O2 O2 Flow FiO2 Time Delivery Rate 09/02/18 95 22 91/59 (70) 100 Mechanica 10:15 l Ventilato r 09/02/18 94 22 62/35 (44) 100 Mechanica 09:45 l Ventilato r 09/02/18 38.1 09:22 09/02/18 106 19 100 100 08:49 09/02/18 100.5 101 23 61/37 (45) 100 08:27 Physical Exam Const: Chronically ill Head: Atraumatic Eyes: Normal Conjunctiva ENT: Normal External Ears, Nose and Mouth. Neck: Discharge from around the tracheostomy site Resp: Rhonchorous breath sounds diffusely Cardio: Regular rate and rhythm, no murmurs Abd: G-tube in place Skin: Pale skin Back: No midline or flank tenderness Ext: No cyanosis, or edema Neur: GCS 3 Result Diagram: 09/02/18 0826 09/02/18 0826 Results 24 hrs Laboratory Tests Test 09/02/18 08:21 09/02/18 08:23 09/02/18 08:26 POC Venous Lactate 1.0 mmol/L Blood Gas Specimen Source Blood arterial Arterial Blood Date Drawn 09/02/2018 8:30:58 AM Arterial Blood pH 7.349 (Temp corrected) Arterial Blood pCO2 48.1 mmhg (Temp correct) Arterial Blood pO2 141.8 mmHG (Temp corrected) Arterial Blood HCO3 25.9 mmol/L Arterial Blood Base Excess 0.2 mmol/L Arterial Blood 98.1 mmHG Oxygen Saturation Julito Test N/A Arterial Blood Gas Right Brachial Puncture Site Arterial 0.2 % Blood Carboxyhemoglobin Arterial Blood 0.6 % Methemoglobin Blood Gas A-a O2 523.1 mmHg Differential Oxyhemoglobin Percent 97.3 % Blood Gas Temperature 37.0 C Blood Gas Respiration Rate 18.0 Blood Gas Actual 18 Respiration Rate Blood Gas Modality VENT - AC FiO2 100.0 % Blood Gas Tidal Volume 500.0 mL Blood Gas Low PEEP Setting 0 cmH2O Blood Gas Notified Whom Geronimo Blood Gas Notified Time 09/02/2018 8:41:30 AM White Blood Count 8.8 10^3/ul Red Blood Count 2.32 10^6/ul Hemoglobin 6.8 g/dl Hematocrit 23.0 % Mean Corpuscular Volume 99.1 fl Mean Corpuscular Hemoglobin 29.3 pg Mean Corpuscular 29.6 g/dl Hemoglobin Concent Red Cell Distribution Width 17.3 % Platelet Count 94 10^3/UL Mean Platelet Volume 12.9 fl Immature Granulocytes % 0.500 % Neutrophils % 76.2 % Lymphocytes % 14.6 % Monocytes % 6.5 % Eosinophils % 2.0 % Basophils % 0.2 % Nucleated Red Blood Cells % 0.0 /100WBC Immature Granulocytes # 0.040 10^3/ul Neutrophils # 6.7 10^3/ul Lymphocytes # 1.3 10^3/ul Monocytes # 0.6 10^3/ul Eosinophils # 0.2 10^3/ul Basophils # 0.0 10^3/ul Nucleated Red Blood Cells # 0.0 10^3/ul Prothrombin Time 14.2 Sec Prothrombin Time Ratio 1.1 INR International 1.09 Normalized Ratio Activated 43.4 Sec Partial Thromboplast Time Sodium Level 144 mmol/L Potassium Level 4.8 mmol/L Chloride Level 102 mmol/L Carbon Dioxide Level 33 mmol/L Anion Gap 9 Blood Urea Nitrogen 113 mg/dl Creatinine 2.96 mg/dl Est Glomerular Filtrat 23 mL/min Rate mL/min Glucose Level 108 mg/dl Calcium Level 8.7 mg/dl Total Bilirubin 0.2 mg/dl Direct Bilirubin 0.00 mg/dl Indirect Bilirubin 0.2 mg/dl Aspartate Amino 21 IU/L Transf (AST/SGOT) Alanine 21 IU/L Aminotransferase (ALT/SGPT) Alkaline Phosphatase 102 IU/L Troponin I < 0.012 ng/ml Total Protein 7.7 g/dl Albumin 3.2 g/dl Globulin 4.50 g/dl Albumin/Globulin Ratio 0.71 Current Medications Medications Dose Sig/Dwain Start Time Status Last (Trade) Ordered Route PRN Stop Time Admin Dose Reason Admin Cefepime HCl 50 ml @ ONCE STAT 09/02/18 DC 09/02/18 100 mls/hr IVPB 08:13 09:05 09/02/18 08:42 Vancomycin 250 ml @ ONCE ONCE 09/02/18 DC 09/02/18 HCl 125 mls/hr IVPB 08:30 10:02 09/02/18 10:29 650 mg ONCE ONCE 09/02/18 DC 09/02/18 Acetaminophen GA 09:00 09:22 (Tylenol 09/02/18 09:01 Supp) Sodium 0 ml @ 0 Q0M ONCE 09/02/18 DC Chloride mls/hr IV 08:45 09/02/18 08:46 Sodium 1,640 ml BOLUS OVER 2 09/02/18 DC 09/02/18 Chloride HOURS STAT 09:20 08:21 (NS) IV* 09/02/18 09:22 250 ml @ ONCE STAT 09/02/18 09/02/18 Norepinephrin 7.5 mls/hr IV 09:41 10:00 e 09/03/18 19:00 Procedures/MDM CT brain pending at this time. EKG read by me: Rate/Rhythm: Sinus tachycardia rate of 106 Intervals: Normal Impression: Sinus tachycardia without ischemia Chest X-ray 1V Interpreted by me: Soft Tissue: No acute abnormalities Bones: No acute abnormalities Mediastinum/Cardiac Silhouette/Lungs: Bilateral pulmonary infiltrates Sepsis Documentation: Patient's infectious symptoms have not stabilized and the patient is at risk of rapid decompensation. The patient will be admitted for careful hydration, antibiotic therapy, and infectious source control. SEVERE SEPSIS CRITERIA: Infectious source: Pneumonia End organ damage indicated by: Hypotension despite 30 mL/kg fluid bolus SEPSIS MANAGEMENT Time of recognition of sepsis: 8:26 AM. Time of recognition of severe sepsis: 9:45 AM Time of recognition of septic shock: 9:45 AM. 3 HOUR BUNDLE Blood cultures x 2 before broad-spectrum antibiotics: Yes 30 ml/kg NS bolus completed Initial lactate 1.0 Repeat lactate pending SEPTIC SHOCK ASSESSMENT: No lactic acid > 4.0 Yes persistent hypotension (SBP < 90 or 40 mmHg drop, MAP < 65) despite 30 mL/kg IV fluid bolus VOLUME REASSESSMENT FOR SEPTIC SHOCK: Reevaluation Time: 10:15 AM Temp 100.5, BP 91/59, HR 95, RR 22, Pox 100% Heart regular rate & rhythm Lungs no crackles Skin warm & dry Cap Refill less than 2 seconds Peripheral pulses radially present PERSISTENT HYPOTENSION TREATMENT: Comfort care no Central line right internal jugular placed Vasopressor started norepinephrine I considered further perfusion assessment with CVP measurement, SCVO2, bedside ultrasound volume assessment, passive leg raise, trial of further fluid bolus. And proceeded with 30 ml/kg fluid bolus of NSS, broad spectrum antibiotics, and admission. The patient was hypotensive despite 30 ml/kg fluid bolus so central line was placed in the right IJ and norepinephrine was started. The patient will be admitted to the care of Dr. Schulz who is covering for Dr. Barreto. CRITICAL CARE Critical care time 35 minutes Emergent fluid management while maintaining close respiratory support. Provision of immediate and broad-spectrum antibiotic therapy. Simultaneous assessment for possible sources in order to direct targeted therapy. Consideration for invasive and chemical support to prevent cardiopulmonary collapse. Critical care time is independent of procedures performed. Central Line Placement by me: Patient consented, sterilely draped, full prep, gown, glove, mask, time out performed. Anesthesia: 1% lidocaine locally Location: Left subclavian was attempted but I was unable to pass the wire so I switched to a right internal jugular approach Device: Multiple lumen Technique: Seldinger technique. Secured with suture. Results: Venous return from all ports with easy saline flush. No complications. Guide wire retrieved and disposed of. ED Ultrasound: Central line placed by me using concurrent ultrasound guidance. Printer was not working to print images. Chest X-ray 1V Interpreted by me: Central line in SVC, Normal soft tissue, No evidence of pneumothorax. Departure Diagnosis: Primary Impression: Septic shock Additional Impression: Hypotension Hypotension type: unspecified hypotension type Qualified Codes: I95.9 - Hypotension, unspecified Condition: Critical GANESH BARCLAY MD Sep 02, 2018 10:45
--- NOTE | 2018-09-02 13:23 | HP ---
Date/Time of Note Date/Time of Note DATE: 09/02/18 TIME: 13:21 Assessment/Plan VTE Prophylaxis Pharmacological prophylaxis: LMWH Lines/Catheters IV Catheter Type (from Nrsg): Peripheral IV Assessment/Plan Hospital Course 1) sepsis - IV antibiotics 2) hypotension - secondary to #1 - give IV fluids, on vasopressors 3) respiratory failure - continue on vent 4) seizure disorder - continue [facility] Result Diagram: 09/02/18 0826 09/02/18 0826 Results 24hrs Laboratory Tests Test 09/02/18 08:21 09/02/18 08:23 09/02/18 08:26 09/02/18 10:44 POC Venous 1.0 Lactate Blood Gas Blood arterial Specimen Source Arterial Blood 09/02/2018 8:30:5 Date Drawn 8 AM Arterial Blood pH 7.349 L (Temp corrected) Arterial Blood 48.1 H pCO2 (Temp correct) Arterial Blood 141.8 H pO2 (Temp corrected) Arterial Blood 25.9 HCO3 Arterial Blood 0.2 Base Excess Arterial Blood 98.1 H Oxygen Saturation Julito Test N/A Arterial Blood Right Brachial Gas Puncture Site Arterial 0.2 Blood Carboxyhemo globin Arterial Blood 0.6 Methemoglobin Blood Gas A-a O2 523.1 H Differential Oxyhemoglobin 97.3 Percent Blood Gas 37.0 Temperature Blood Gas 18.0 Respiration Rate Blood Gas Actual 18 Respiration Rate Blood Gas VENT - AC Modality FiO2 100.0 Blood Gas Tidal 500.0 Volume Blood Gas Low 0 PEEP Setting Blood Gas M.D. Notified Whom Blood Gas 09/02/2018 8:41:3 Notified Time 0 AM White Blood Count 8.8 Red Blood Count 2.32 L Hemoglobin 6.8 *L Hematocrit 23.0 L Mean Corpuscular 99.1 Volume Mean Corpuscular 29.3 Hemoglobin Mean Corpuscular 29.6 L Hemoglobin Concen t Red Cell 17.3 H Distribution Width Platelet Count 94 #L Mean Platelet 12.9 H Volume Immature 0.500 H Granulocytes % Neutrophils % 76.2 Lymphocytes % 14.6 L Monocytes % 6.5 Eosinophils % 2.0 Basophils % 0.2 Nucleated Red 0.0 Blood Cells % Immature 0.040 H Granulocytes # Neutrophils # 6.7 Lymphocytes # 1.3 Monocytes # 0.6 Eosinophils # 0.2 Basophils # 0.0 Nucleated Red 0.0 Blood Cells # Prothrombin Time 14.2 Prothrombin Time 1.1 Ratio INR International 1.09 Normalized Ratio Activated 43.4 H Partial Thrombopl ast Time Sodium Level 144 Potassium Level 4.8 Chloride Level 102 Carbon Dioxide 33 H Level Anion Gap 9 Blood Urea 113 H Nitrogen Creatinine 2.96 H Est Glomerular 23 L Filtrat Rate mL/min Glucose Level 108 Calcium Level 8.7 Total Bilirubin 0.2 Direct Bilirubin 0.00 Indirect 0.2 Bilirubin Aspartate Amino 21 Transf (AST/SGOT) Alanine 21 Aminotransferase (ALT/SGPT) Alkaline 102 Phosphatase Troponin I < 0.012 Total Protein 7.7 Albumin 3.2 L Globulin 4.50 H Albumin/Globulin 0.71 Ratio Lactic Acid Level < 0.5 L HPI/ROS Admit Date/Time Admit Date/Time 09/02/18 Hx of Present Illness Patient with chronic respiratory failure, seizure disorder, renal insufficiency comes from subacute facility with hypotension and shortness of breath. Patient is admitted for further treatment and evaluation. PMH/Family/Social Past Medical History respiratory failure renal insufficiency seizure disorder Medications Current Medications Norepinephrine 250 ml @ 7.5 mls/hr ONCE STAT IV Last administered on 09/02/18at 10:00; Admin Dose 18.75 MLS/HR; Start 09/02/18 at 09:41; Stop 09/03/18 at 19:00 Sodium Chloride 1,000 ml @ 100 mls/hr Q10H IV ; Start 09/02/18 at 13:17; Status UNV Ondansetron HCl (Zofran Inj) 4 mg Q6H PRN IV NAUSEA AND/OR VOMITING; Start 09/02/18 at 13:30; Status UNV Acetaminophen (Tylenol Liquid) 650 mg Q6H PRN PO PAIN LEVEL 1-3 OR FEVER; Start 09/02/18 at 13:30; Status UNV Morphine Sulfate (morphine) 2 mg Q4H PRN IV PAIN LEVEL 7-10; Start 09/02/18 at 13:30; Status UNV Famotidine (Pepcid Iv) 20 mg Q12 IV ; Start 09/02/18 at 21:00; Status UNV Enoxaparin Sodium (Lovenox) 30 mg DAILY SC ; Start 09/03/18 at 09:00; Status UNV Cefepime HCl 50 ml @ 100 mls/hr Q12 IVPB ; Start 7/28/19 at 21:00; Status UNV Coded Allergies: Tetracyclines (Verified Allergy, Unknown, 07/18/18) Past Surgical History Past Surgical Hx: other Family History Significant Family History: no pertinent family hx Social History Smoking Status: Never smoker Exam/Review of Systems Vital Signs Vitals Vital Signs Date Temp Pulse Resp B/P (MAP) Pulse Ox O2 O2 Flow FiO2 Time Delivery Rate 09/02/18 96 18 94/61 (72) 99 Mechanical 13:00 Ventilator 09/02/18 60 12:53 09/02/18 97.5 11:05 Exam Constitutional: well developed Head: normocephalic, atraumatic Neck: supple Respiratory: diminished breath sounds Cardiovascular: regular rate and rhythm Gastrointestinal: soft, non-tender Extremities: normal pulses DANAY MUIR Sep 02, 2018 13:23
[2018-09-02] MEDS ORDERED: DIPHENHYDRAMINE 25 MG CAP GTB PRN (13:30)
[2018-09-02] MEDS ORDERED: ACETAMINOPHEN 325 MG TAB GTB PRN (13:30)
[2018-09-02] MEDS ORDERED: ONDANSETRON 4 MG INJ IV PRN (13:30)
[2018-09-02] MEDS: SOD CHLORIDE 0.9% 1,000 ML IV SCH ×2 (13:58→23:31)
[2018-09-02] MEDS ORDERED: NORepinephrine 8MG/250 ML (PMX 250 ML IV SCH (20:00)
[2018-09-02] MEDS: morphine 2 MG INJ IV PRN (20:03)
[2018-09-02] MEDS: LEVETIRACETAM (100 MG/ML) 5ML CUP GTB SCH (20:56)
[2018-09-02] MEDS: GABAPENTIN (50 MG/ML PO SYG) GTB SCH (20:56)
[2018-09-02] MEDS: QUETIAPINE 25 MG TAB GTB SCH (20:56)
[2018-09-02] MEDS: FAMOTIDINE 20 MG INJ IV SCH (20:56)
[2018-09-02] MEDS ORDERED: POT CITRATE/CITRIC ACID (PO SYG) GTB SCH (21:00)
[2018-09-02] MEDS ORDERED: LEVETIRACETAM (100 MG/ML PO SYG) GTB SCH (21:00)
[2018-09-02] MEDS: HYDROCODONE/APAP (5/325) TAB GTB PRN (23:03)
[2018-09-03] VITALS (105 sets, daily range): BP systolic 68–128; BP diastolic 38–82; PULSE 96–118; RESP 14–30
[2018-09-03] MEDS: morphine 2 MG INJ IV PRN ×4 (00:57→16:47)
[2018-09-03] MEDS: HYDROCODONE/APAP (5/325) TAB GTB PRN ×4 (04:05→20:39)
[2018-09-03] MEDS: ACETAMINOPHEN 650MG/20.3ML CUP GTB PRN ×2 (08:05→16:47)
--- NOTE | 2018-09-03 08:36 | CONS ---
DATE OF ADMISSION: 09/02/2018 DATE OF CONSULTATION: 09/03/2018 REFERRED BY: Dr. Mirza. HISTORY OF PRESENT ILLNESS: This is a 43-year-old male patient who was [facility] with a history of decreased mental status and low blood pressure with a reading of 50/20. The patie nt is a long-term resident of the correction, being ventilator dependent, following respiratory mariya lure. He has multiple medical problems which include the following: paraplegia secondary to spinal cord injury, he has a history of chronic kidney disease with acute complement usually preceded by inf ections and dehydration. He also has chronic anemia. In addition, he is ventilator dependent, follo wing respiratory failure several years ago. He also has nephrolithiasis. He has had a left nephrect joy in the past. The exact details are not known. He also has suprapubic cystostomy in addition to tracheostomy and percutaneous endoscopic gastrostomy. He is ventilator dependent and remains on vent ilator all the time. Several attempts at weaning have been unsuccessful. He has had several episode s of sepsis. He also has seizure disorder. He also has chronic pain and has opiate dependency. He has history of bipolar disorder. MEDICATIONS IN THE LONGTERM: Include: 1. Cranberry extract. 2. Multivitamins and mineral supplements. 3. Ascorbic acid. 4. Zinc sulfate. 5. Tylenol. 6. Seroquel. 7. Zofran as needed. 8. Keppra. 9. Carmel. 10. Gabapentin. 11. Pepcid. 12. Lovenox for DVT prophylaxis 13. Benadryl p.r.n. SOCIAL HISTORY: He is a long-term resident of the correction. He is a nonsmoker. No history of a lcohol abuse or drug use. The patient has had tracheostomy problems in the past as the tracheostomy opening was too large for t he tracheostomy tube. Arrangements were made to have him transferred to [facility] during his elenita ier admission; however, while there he refused to have any further surgical interventions. He had to be sent back here. In the emergency room yesterday, the patient was found to be severely anemic with hemoglobin around 6 and he received 2 units of packed cells. He was also hypotensive and had to be placed on Levophed, which is being continued in the ICU now. He has had no fever. The exact source of bleeding is not k nown. No obvious external bleeding seen. He has also had problems, suprapubic cystostomy during his last admission and he was seen by Dr. Marquez, who replaced the suprapubic cystostomy tube which is functioning well. PHYSICAL EXAMINATION: GENERAL: Shows young male patient who is awake, responsive. His cooperation is suboptimal. He is o n long-term ventilator support through tracheostomy. VITAL SIGNS: This morning shows a slight fever of 99.5, blood pressure 92/62, pulse rate of 102, res pirations 18, pulse oximetry 99% saturation on 40% oxygen. HEENT: Head looks normal. No scleral icterus is seen. Throat could not be seen due to patient's no ncooperation. Tongue appears moist. NECK: No cervical adenopathy felt. No jugular venous distention seen. Tracheostomy tube is in plac e. It seems to be functioning well. He is getting sufficient tidal volumes on the ventilator. HEART: Regular sinus rhythm, normal first, second heart sounds. CHEST: Breath sounds are heard bilaterally, somewhat diminished in the lower lung tierney, but auscul tation is difficult due to patient's noncooperation. There are rales and rhonchi in both lung bases. ABDOMEN: Soft, no distention seen. Bowel sounds are present. EXTREMITIES: Show no edema. He is paraplegic. He also has multiple decubiti. LABORATORY DATA: Arterial blood gases taken yesterday in the Emergency Room showed pH 7.34, pCO2 of 48, pO2 of 141 on 100% oxygen with a volume of 500 mL and a rate of 18. On the chest x-ray taken in the Emergency Room yesterday is reported to show chronic bibasilar atelec tatic changes with a small right pleural effusion. A tracheostomy tube is in place. Most of the angie nges are chronic, seen in earlier films. The lab test results showed initially a WBC 8800, hemoglobi n 6.8, hematocrit 23, platelets are decreased at 94,000. This morning his hemoglobin is 9.1. Follow ing blood transfusion, hematocrit has improved to 30.3, platelet count is still low at 83,000. WBC c ount is increased to 15,900. The chemistry panel shows sodium 146, potassium 4.6, BUN 102, creatinin e 2.2, lactic acid is within normal limits. Glucose 94. Cultures are being taken. He is on Maxipim e at this time. He also received a dose of vancomycin. IMPRESSION: 1. Septic shock. 2. Chronic ventilator dependent respiratory failure. 3. Chronic kidney disease with acute kidney injury. 4. Chronic anemia. 5. History of seizure disorder. 6. History of nephrolithiasis. 7. Paraplegia secondary to spinal cord injury. 8. Multiple decubiti. RECOMMENDATIONS: 1. Continue long-term ventilator support. He will not tolerate ventilator weaning and has failed se veral times in the past. 2. Continue antibiotics. Source of sepsis is not known. It could be from the pneumonia, though it seems doubtful or it could be a urinary tract infection, could also be from multiple decubiti. 3. Continue blood pressure support, IV fluids to improve hydration and [employer] supervisor pressure. 4. Continue tube feedings. 5. Continue deep venous thrombosis prophylaxis. 6. Continue supportive therapy. Dictated By: HUMBRETO PEREZ MD SR/NTS Conf#: [id number] DID#: [id number] CC: DANAY MUIR MD; JOSÉ ANTONIO MIRZA MD;*EndCC*
[2018-09-03] MEDS: ZINC SULFATE 220 MG CAP GTB SCH (09:32)
[2018-09-03] MEDS: ASCORBIC ACID 500 MG TAB GTB SCH (09:32)
[2018-09-03] MEDS: GABAPENTIN (50 MG/ML PO SYG) GTB SCH ×2 (09:32→20:39)
[2018-09-03] MEDS: LEVETIRACETAM (100 MG/ML) 5ML CUP GTB SCH ×2 (09:32→20:39)
[2018-09-03] MEDS: CEFEPIME 2GM/50 ML (PMX) 50 ML IVPB SCH (09:34)
[2018-09-03] MEDS: QUETIAPINE 25 MG TAB GTB SCH ×2 (09:34→20:39)
[2018-09-03] MEDS: ENOXAPARIN 30 MG/0.3 ML SYG SC SCH (09:36)
[2018-09-03] MEDS: SOD CHLORIDE 0.9% 1,000 ML IV SCH ×3 (09:50→21:38)
--- NOTE | 2018-09-03 12:47 | PN ---
Date/Time of Note Date/Time of Note DATE: 09/03/18 TIME: 12:46 Assessment/Plan VTE Prophylaxis Risk score (from [facility] [place] [facility])>0 risk: 2 SCD applied (from [facility] [place]): Yes Pharmacological prophylaxis: LMWH Lines/Catheters IV Catheter Type (from [facility]): Peripheral IV Assessment/Plan Hospital Course 1) sepsis - IV antibiotics 2) hypotension - secondary to #1 - give IV fluids, on vasopressors 3) respiratory failure - continue on vent 4) seizure disorder - continue [facility] Result Diagram: 09/03/18 0330 09/03/18 0330 Results 24hrs Laboratory Tests Test 09/02/18 13:30 09/03/18 03:30 White Blood Count 10.8 # 15.9 #H Red Blood Count 2.16 L 3.13 #L Hemoglobin 6.2 *L 9.1 #L Hematocrit 21.1 L 30.3 #L Mean Corpuscular Volume 97.7 96.8 Mean Corpuscular Hemoglobin 28.7 L 29.1 Mean Corpuscular Hemoglobin Concent 29.4 L 30.0 L Red Cell Distribution Width 17.3 H 17.9 H Platelet Count 66 #L 83 #L Mean Platelet Volume 12.4 H 13.3 H Immature Granulocytes % 0.600 H 0.500 H Neutrophils % 83.6 H 88.1 H Lymphocytes % 6.8 L 3.4 L Monocytes % 5.4 4.0 Eosinophils % 3.4 3.7 Basophils % 0.2 0.3 Nucleated Red Blood Cells % 0.0 0.0 Immature Granulocytes # 0.060 H 0.080 H Neutrophils # 9.1 H 14.1 H Lymphocytes # 0.7 L 0.5 L Monocytes # 0.6 0.6 Eosinophils # 0.4 0.6 H Basophils # 0.0 0.0 Nucleated Red Blood Cells # 0.0 0.0 Sodium Level 142 146 H Potassium Level 4.1 4.6 Chloride Level 109 113 H Carbon Dioxide Level 25 23 Anion Gap 8 10 Blood Urea Nitrogen 106 H 102 H Creatinine 2.60 H 2.23 H Est Glomerular Filtrat Rate mL/min 27 L 32 L Glucose Level 121 94 Hemoglobin A1c Lactic Acid Level < 0.5 L Calcium Level 7.9 L 8.4 Magnesium Level 2.4 Procalcitonin 2.61 H Subjective 24 Hr Interval Summary Free Text/Dictation Patient sedated, on vent Exam/Review of Systems Exam Vitals Vital Signs Date Temp Pulse Resp B/P (MAP) Pulse Ox O2 O2 Flow FiO2 Time Delivery Rate 09/03/18 107 30 100 40 11:30 09/03/18 95/51 (66) 10:30 09/03/18 [place] 10:00 l Ventilato r 09/03/18 100.0 08:50 Intake and Output 09/02/18 09/02/18 09/03/18 1515:00 23:00 07:00 IntakeIntake Total 1130.0 ml 1205.00 ml OutputOutput Total 700 ml 550 ml BalanceBalance 430.0 ml 655.00 ml Constitutional: well developed Head: normocephalic, atraumatic Neck: supple Respiratory: diminished breath sounds Cardiovascular: regular rate and rhythm Gastrointestinal: soft, non-tender Extremities: normal pulses Results Results 24hrs Laboratory Tests Test 09/02/18 13:30 09/03/18 03:30 White Blood Count 10.8 # 15.9 #H Red Blood Count 2.16 L 3.13 #L Hemoglobin 6.2 *L 9.1 #L Hematocrit 21.1 L 30.3 #L Mean Corpuscular Volume 97.7 96.8 Mean Corpuscular Hemoglobin 28.7 L 29.1 Mean Corpuscular Hemoglobin Concent 29.4 L 30.0 L Red Cell Distribution Width 17.3 H 17.9 H Platelet Count 66 #L 83 #L Mean Platelet Volume 12.4 H 13.3 H Immature Granulocytes % 0.600 H 0.500 H Neutrophils % 83.6 H 88.1 H Lymphocytes % 6.8 L 3.4 L Monocytes % 5.4 4.0 Eosinophils % 3.4 3.7 Basophils % 0.2 0.3 Nucleated Red Blood Cells % 0.0 0.0 Immature Granulocytes # 0.060 H 0.080 H Neutrophils # 9.1 H 14.1 H Lymphocytes # 0.7 L 0.5 L Monocytes # 0.6 0.6 Eosinophils # 0.4 0.6 H Basophils # 0.0 0.0 Nucleated Red Blood Cells # 0.0 0.0 Sodium Level 142 146 H Potassium Level 4.1 4.6 Chloride Level 109 113 H Carbon Dioxide Level 25 23 Anion Gap 8 10 Blood Urea Nitrogen 106 H 102 H Creatinine 2.60 H 2.23 H Est Glomerular Filtrat Rate mL/min 27 L 32 L Glucose Level 121 94 Hemoglobin A1c Lactic Acid Level < 0.5 L Calcium Level 7.9 L 8.4 Magnesium Level 2.4 Procalcitonin 2.61 H Medications Medication Current Medications Norepinephrine 250 ml @ 7.5 mls/hr ONCE STAT IV Last administered on 09/02/18 10:00; Admin Dose 18.75 MLS/HR; Start 09/02/18 at 09:41; Stop 09/03/18 at 19:00 Sodium Chloride 1,000 ml @ 100 mls/hr Q10H IV Last administered on 09/03/18 09:50; Admin Dose 100 MLS/HR; Start 09/02/18 at 13:17 Ondansetron HCl (Zofran Inj) 4 mg Q6H PRN IV NAUSEA AND/OR VOMITING; Start 09/02/18 at 13:30 Acetaminophen (Tylenol Liquid) 650 mg Q4H PRN GTB PAIN LEVEL 1-3 OR FEVER Last administered on 09/03/18 08:05; Admin Dose 650 MG; Start 09/02/18 at 13:30 Morphine Sulfate (morphine) 2 mg Q4H PRN IV PAIN LEVEL 7-10 Last administered on 09/03/18 12:09; Admin Dose 2 MG; Start 09/02/18 at 13:30 Famotidine (Pepcid Iv) 20 mg Q24H IV Last administered on 09/02/18 20:56; Admin Dose 20 MG; Start 09/02/18 at 21:00 Enoxaparin Sodium (Lovenox) 30 mg DAILY SC Last administered on 09/03/18 09:36; Admin Dose 30 MG; Start 09/03/18 at 09:00 Cefepime HCl 50 ml @ 100 mls/hr Q24H IVPB Last administered on 09/03/18 09:34; Admin Dose 100 MLS/HR; Start 09/03/18 at 09:00 Ascorbic Acid (Vitamin C) 500 mg DAILY GTB Last administered on 09/03/18 09:32; Admin Dose 500 MG; Start 09/03/18 at 09:00 Diphenhydramine HCl (Benadryl) 25 mg QHS PRN GTB ITCHING; Start 09/02/18 at 13:30 Gabapentin (Neurontin Liquid) 300 mg BID GTB Last administered on 09/03/18 09:32; Admin Dose 300 MG; Start 09/02/18 at 21:00 Acetaminophen/ Hydrocodone Bitart ([place] (5/325)) 1 tab Q4H WHILE AWAKE PRN GTB SEVERE PAIN LEVEL 7-10 Last administered on 09/03/18 09:33; Admin Dose 1 TAB; Start 09/02/18 at 13:30 Quetiapine Fumarate (Seroquel) 75 mg BID GTB Last administered on 09/03/18 09:34; Admin Dose 75 MG; Start 09/02/18 at 21:00 Zinc Sulfate (Zinc Sulfate) 220 mg DAILY GTB Last administered on 09/03/18 09:32; Admin Dose 220 MG; Start 09/03/18 at 09:00 Levetiracetam (Keppra Liquid) 500 mg BID GTB Last administered on 09/03/18 09:32; Admin Dose 500 MG; Start 09/02/18 at 21:00 Albuterol (Ventolin Hfa) 2 puff Q4H RESP THERAPY PRN INH SHORTNESS OF BREATH; Start 09/03/18 at 12:00 DANAY MUIR Sep 03, 2018 12:47
[2018-09-03] MEDS: ALBUTEROL HFA 8 GM INHALER INH PRN (15:37)
[2018-09-03] MEDS ORDERED: VANCOMYCIN IV PER PHARMACY XX SCH (17:00)
[2018-09-03] MEDS: VANCOMYCIN 750 MG (PMX) 250 ML IVPB SCH (18:23)
--- NOTE | 2018-09-03 20:32 | CONS ---
DATE OF ADMISSION: 09/02/2018 DATE OF CONSULTATION: 09/03/2018 TYPE OF CONSULTATION: Infectious disease REASON FOR CONSULTATION: Antibiotic management. HISTORY OF PRESENT ILLNESS: Henry Haddad is a 43-year-old male, frequently seen at [facility], who comes in with hypotension and loss of consciousness. The patient is quadriplegic. He has a tracheostomy and a ventilator. He presents altered. His GCS is 3. The patient comes from a [facility] with a blood pressure of 50/20. He was discharged on 08/29. Primary doctor is Dr. Barreto. PAST MEDICAL HISTORY: Status post cervical spine surgery. 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 He is trach to vent, has a history of pneumonia in the past, has a history of bipolar af fect with psychosis. FAMILY HISTORY: Noncontributory. SOCIAL HISTORY: He does not smoke, drink or abuse drugs. ALLERGIES: NONE TO PENICILLIN, SULFA OR FOODS. MEDICATIONS: Per chart. REVIEW OF SYSTEMS: Noncontributory. LABORATORY DATA: On admission, his white count was 8.8, H and H of 6.8 and 23.0, platelet count 94,0 00. BUN and creatinine of 113/2.96. His CO2 was 33. Random glucose was 108. His white count as no harvinder was 8.8 with 76% neutrophils. The patient was started on vancomycin and cefepime and also on Levophed. Chest x-ray showed bilatera l pulmonary infiltrates. The patient's symptoms did not stabilize and he was admitted to the intensi ve care unit. Blood cultures were done. Temperature was 100.5. The patient had a central line plac ed in the right IJ. There is no evidence for pneumothorax. The patient was seen by Dr. Ames. He not es that in addition to his other problems he has a history of nephrolithiasis and left nephrectomy in the past. He has a suprapubic cystostomy in addition to a tracheostomy and percutaneous endoscopic gastrostomy; ventilator dependent, remains on the ventilator, attempts at weaning have been unsuccess ful. He has chronic pain and has opiate dependency. He has a history of bipolar disorder. The gilma ent was found to be severely anemic and received 2 units of packed red blood cells. He was hypotensi ve, was placed on Levophed and transferred to the ICU. A suprapubic cystostomy is in place, it was r eplaced by Dr. Marquez on his last admission. PHYSICAL EXAMINATION: GENERAL: The patient is chronically ill-appearing. The patient is awake, responsive, in no acute di stress. VITAL SIGNS: At this point temperature of 100.5 maximum, now 99.5. SKIN: Without generalized rash. HEENT: Within normal limits. NECK: He has tracheostomy tube in place. LYMPH NODES: None palpable. CHEST: Decreased breath sounds at the bases. HEART: Without murmur or gallop. ABDOMEN: Soft, nontender, without organosplenomegaly or masses. EXTREMITIES: Without cyanosis, clubbing, or edema. RECTAL/GENITAL: Exam is deferred. He has a suprapubic catheter. He has a G-tube. SKIN: He has multiple decubiti. NEUROLOGIC: He is quadriplegic. PLAN: Chest x-ray showed chronic bibasilar atelectatic changes with small right pleural effusion. W dalia count was 15, is now 15.9. The patient was started on vancomycin and Maxipime. We will continu e him on current therapy. I will dictate my findings to Dr. Barreto. Dictated By: ANTONELLA STEWART MD, JD/QUE Conf#: [id number] DID#: [id number]
[2018-09-03] MEDS: FAMOTIDINE 20 MG INJ IV SCH (20:39)
[2018-09-03] MEDS: NORepinephrine 8MG/250 ML (PMX 250 ML IV SCH (20:47)
[2018-09-04] VITALS (97 sets, daily range): BP systolic 50–103; BP diastolic 34–80; PULSE 99–121; RESP 13–29
[2018-09-04] MEDS: morphine 2 MG INJ IV PRN ×5 (03:25→21:43)
[2018-09-04] MEDS: HYDROCODONE/APAP (5/325) TAB GTB PRN (05:10)
[2018-09-04] MEDS: ASCORBIC ACID 500 MG TAB GTB SCH (09:39)
[2018-09-04] MEDS: QUETIAPINE 25 MG TAB GTB SCH ×2 (09:39→21:43)
[2018-09-04] MEDS: LEVETIRACETAM (100 MG/ML) 5ML CUP GTB SCH ×2 (09:39→21:42)
[2018-09-04] MEDS: GABAPENTIN (50 MG/ML PO SYG) GTB SCH ×2 (09:39→21:43)
[2018-09-04] MEDS: ZINC SULFATE 220 MG CAP GTB SCH (09:39)
[2018-09-04] MEDS: CEFEPIME 2GM/50 ML (PMX) 50 ML IVPB SCH (09:40)
[2018-09-04] MEDS: SOD CHLORIDE 0.9% 1,000 ML IV SCH (09:52)
[2018-09-04] MEDS: ENOXAPARIN 30 MG/0.3 ML SYG SC SCH (10:05)
[2018-09-04] MEDS: ALBUTEROL HFA 8 GM INHALER INH PRN ×2 (10:12→15:03)
[2018-09-04] MEDS: NORepinephrine 8MG/250 ML (PMX 250 ML IV SCH ×2 (12:43→22:13)
[2018-09-04] MEDS: metroNIDAZOLE 500 MG TAB NGT SCH ×2 (13:08→21:42)
--- NOTE | 2018-09-04 13:14 | PN ---
Date/Time of Note Date/Time of Note DATE: 09/04/18 TIME: 13:14 Assessment/Plan VTE Prophylaxis Risk score (from [facility])>0 risk: 8 SCD applied (from [facility]): Yes Pharmacological prophylaxis: LMWH Lines/Catheters IV Catheter Type (from [facility]): Central Line Central line still needed: Yes Assessment/Plan Hospital Course 1) sepsis - IV antibiotics 2) hypotension - secondary to #1 - give IV fluids, on vasopressors 3) respiratory failure - continue on vent 4) seizure disorder - continue keppra Result Diagram: 09/04/18 0420 09/04/18 0420 Results 24hrs Laboratory Tests Test 09/04/18 04:20 09/04/18 05:18 09/04/18 13:03 White Blood Count 13.3 H Red Blood Count 2.84 L Hemoglobin 8.2 L Hematocrit 28.3 L Mean Corpuscular Volume 99.6 Mean Corpuscular Hemoglobin 28.9 L Mean Corpuscular 29.0 L Hemoglobin Concent Red Cell Distribution Width 17.7 H Platelet Count 89 L Mean Platelet Volume 13.1 H Immature Granulocytes % 0.500 H Neutrophils % 88.1 H Lymphocytes % 3.3 L Monocytes % 4.8 Eosinophils % 3.1 Basophils % 0.2 Nucleated Red Blood Cells % 0.0 Immature Granulocytes # 0.070 H Neutrophils # 11.7 H Lymphocytes # 0.4 L Monocytes # 0.6 Eosinophils # 0.4 Basophils # 0.0 Nucleated Red Blood Cells # 0.0 Sodium Level 148 H Potassium Level 4.3 Chloride Level 119 H Carbon Dioxide Level 17 L Anion Gap 12 Blood Urea Nitrogen 97 H Creatinine 2.15 H Est Glomerular Filtrat 34 L Rate mL/min Glucose Level 90 Calcium Level 8.4 Lab Scanned Report BLOOD TRANSFUSION [facility]FERENCE [facility] Subjective 24 Hr Interval Summary Free Text/Dictation Patient more awake Exam/Review of Systems Exam Vitals Vital Signs Date Temp Pulse Resp B/P (MAP) Pulse Ox O2 O2 Flow FiO2 Time Delivery Rate 09/04/18 105 21 77/45 (56) 91 10:45 09/04/18 Mechanical 10:00 Ventilator 09/04/18 40 08:00 09/04/18 99.5 08:00 Intake and Output 09/03/18 09/03/18 09/04/18 1515:00 23:00 07:00 IntakeIntake Total 946.56 ml 897.4 ml 820 ml OutputOutput Total 250 ml 330 ml 750 ml BalanceBalance 696.56 ml 567.4 ml 70 ml Constitutional: well developed Head: normocephalic, atraumatic Neck: supple Respiratory: diminished breath sounds Cardiovascular: regular rate and rhythm Gastrointestinal: soft, non-tender Extremities: normal pulses Results Results 24hrs Laboratory Tests Test 09/04/18 04:20 09/04/18 05:18 09/04/18 13:03 White Blood Count 13.3 H Red Blood Count 2.84 L Hemoglobin 8.2 L Hematocrit 28.3 L Mean Corpuscular Volume 99.6 Mean Corpuscular Hemoglobin 28.9 L Mean Corpuscular 29.0 L Hemoglobin Concent Red Cell Distribution Width 17.7 H Platelet Count 89 L Mean Platelet Volume 13.1 H Immature Granulocytes % 0.500 H Neutrophils % 88.1 H Lymphocytes % 3.3 L Monocytes % 4.8 Eosinophils % 3.1 Basophils % 0.2 Nucleated Red Blood Cells % 0.0 Immature Granulocytes # 0.070 H Neutrophils # 11.7 H Lymphocytes # 0.4 L Monocytes # 0.6 Eosinophils # 0.4 Basophils # 0.0 Nucleated Red Blood Cells # 0.0 Sodium Level 148 H Potassium Level 4.3 Chloride Level 119 H Carbon Dioxide Level 17 L Anion Gap 12 Blood Urea Nitrogen 97 H Creatinine 2.15 H Est Glomerular Filtrat 34 L Rate mL/min Glucose Level 90 Calcium Level 8.4 Lab Scanned Report BLOOD TRANSFUSION REFERENCE LAB Medications Medication Current Medications Sodium Chloride 1,000 ml @ 100 mls/hr Q10H IV Last administered on 09/04/18at 09:52; Admin Dose 100 MLS/HR; Start 09/02/18 at 13:17 Ondansetron HCl (Zofran Inj) 4 mg Q6H PRN IV NAUSEA AND/OR VOMITING; Start 09/02/18 at 13:30 Acetaminophen (Tylenol Liquid) 650 mg Q4H PRN GTB PAIN LEVEL 1-3 OR FEVER Last administered on 09/03/18at 16:47; Admin Dose 650 MG; Start 09/02/18 at 13:30 Morphine Sulfate (morphine) 2 mg Q4H PRN IV PAIN LEVEL 7-10 Last administered on 09/04/18at 13:10; Admin Dose 2 MG; Start 09/02/18 at 13:30 Famotidine (Pepcid Iv) 20 mg Q24H IV Last administered on 09/03/18 20:39; Admin Dose 20 MG; Start 09/02/18 at 21:00 Enoxaparin Sodium (Lovenox) 30 mg DAILY SC Last administered on 09/04/18 10:05; Admin Dose 30 MG; Start 09/03/18 at 09:00 Cefepime HCl 50 ml @ 100 mls/hr Q24H IVPB Last administered on 09/04/18 09:40; Admin Dose 100 MLS/HR; Start 09/03/18 at 09:00 Ascorbic Acid (Vitamin C) 500 mg DAILY GTB Last administered on 09/04/18 09:39; Admin Dose 500 MG; Start 09/03/18 at 09:00 Diphenhydramine HCl (Benadryl) 25 mg QHS PRN GTB ITCHING; Start 09/02/18 at 13:30 Gabapentin (Neurontin Liquid) 300 mg BID GTB Last administered on 09/04/18 09:39; Admin Dose 300 MG; Start 09/02/18 at 21:00 Acetaminophen/ Hydrocodone Bitart ([place] (5/325)) 1 tab Q4H WHILE AWAKE PRN GTB SEVERE PAIN LEVEL 7-10 Last administered on 09/04/18 05:10; Admin Dose 1 TAB; Start 09/02/18 at 13:30 Quetiapine Fumarate (Seroquel) 75 mg BID GTB Last administered on 09/04/18 09:39; Admin Dose 75 MG; Start 09/02/18 at 21:00 Zinc Sulfate (Zinc Sulfate) 220 mg DAILY GTB Last administered on 09/04/18 09:39; Admin Dose 220 MG; Start 09/03/18 at 09:00 Levetiracetam (Keppra Liquid) 500 mg BID GTB Last administered on 09/04/18 09:39; Admin Dose 500 MG; Start 09/02/18 at 21:00 Albuterol (Ventolin Hfa) 2 puff Q4H RESP THERAPY PRN INH SHORTNESS OF BREATH Last administered on 09/04/18 10:12; Admin Dose 2 PUFF; Start 09/03/18 at 12:00 Vancomycin HCl (Vanco Iv Per Pharmacy) VANCOMYCIN PER PHARMACY PER PROTOCOL XX ; Start 09/03/18 at 17:00 Vancomycin/Sodium Chloride 250 ml @ 125 mls/hr Q24H IVPB Last administered on 09/03/18at 18:23; Admin Dose 125 MLS/HR; Start 09/03/18 at 17:30 Norepinephrine 250 ml @ 0 mls/hr TITRATE IV Last administered on 09/04/18at 12:43; Admin Dose 18.75 MLS/HR; Start 09/03/18 at 20:30 Miscellaneous Information (*Rx Drug Level Order Reminder*) VANCOMYCIN TR 09/05 AT 1,630 1630 ONCE XX ; Start 09/05/18 at 16:30; Stop 09/05/18 at 16:31 Metronidazole (Flagyl) 500 mg Q8 NGT Last administered on 09/04/18at 13:08; Admin Dose 500 MG; Start 09/04/18 at 14:00 DANAY MUIR Sep 04, 2018 13:14
--- NOTE | 2018-09-04 14:09 | PN ---
DATE: 09/04/2018 SUBJECTIVE: The patient remains lethargic on Levophed drip with ongoing fevers. VITAL SIGNS: T-max yesterday 101.1, T current 99.5. LABORATORY DATA: WBC 13.3, H and H 8.2 and 28.3, platelets 89, neutrophils 88.1, BUN 97, creatinine 2.15. MICROBIOLOGY: Blood cultures remain negative. MRSA swab negative. INDWELLINGS: Trach, PEG, right-sided PICC line, suprapubic catheter. ANTIMICROBIALS: The patient is on: 1. IV vancomycin. 2. Cefepime. ALLERGIES: TETRACYCLINE. PHYSICAL EXAMINATION: GENERAL: This is a wasted, chronically ill-appearing, middle-aged, quadriplegic man who is in no dis tress. HEENT: Head atraumatic, normocephalic. NECK: Supple. Tracheostomy present. CHEST: Rise symmetrical. Breath sounds diminished to bases. HEART: S1, S2. ABDOMEN: Soft, bowel tones present. ASSESSMENT: 1. Severe sepsis with shock. 2. Diarrhea, rule out Clostridium difficile colitis. 3. Probable recurrent urinary tract infection. 4. Chronic respiratory failure and dysphagia. 5. Acute encephalopathy. 6. Neurogenic bladder. 7. History of nephrectomy. 8. Acute on chronic kidney disease. PLAN: We are going to add Flagyl to the regimen. Send stool for Clostridium difficile, send urine c ulture. Continue broad spectrum coverage for now. Dictated By: REGINALDO CHERY SUPERVISOR TUBING for SERA HUGHES MD NI/NTS Conf#: [id number] DID#: [id number] CC: DANAY MUIR MD;*EndCC*
--- NOTE | 2018-09-04 14:35 | PN ---
DATE: 09/04/2018 SUBJECTIVE: The patient is in ICU on the ventilator support. He is awake and responsive. His blood pressure is still being maintained on Levophed at 8 mcg dosage. OBJECTIVE: VITAL SIGNS: Most recently had shown blood pressure of 89/53, pulse rate of 107, respirations 20, pu lse oximetry 98% saturation. He is on 40% oxygen. GENERAL: The patient is awake, responsive. He is able to follow commands. However, his cooperation is suboptimal. NECK: Tracheostomy tube is in place, functioning well. No evidence of volume loss. HEENT: The patient is on ventilator support, tracheostomy secretions are moderate and somewhat serou s and mucoid, but no gross bleeding seen. HEART: Regular rhythm with sinus tachycardia. CHEST: Breath sounds are heard diminished in both the lower lung tierney with a few rales and rhonchi which may be due to oxygenation secretions in the lung bases. ABDOMEN: Soft, no distention seen. Bowel sounds are present. EXTREMITIES: Show no edema. He is paraplegic. LABORATORY DATA: Show sodium 148, potassium 4.3, bicarbonate of 17. BUN is 97, creatinine 2.15. Gl ucose is 90, calcium 8.4. Procalcitonin level is 2.61 suggestive of septic process. The culture results show blood cultures are no growth. Stool culture shows coliforms. MEDICATIONS: 1. Vancomycin. 2. Lovenox for DVT prophylaxis. 3. Cefepime. 4. Ascorbic acid. 5. Zinc sulfate. 6. Pepcid. 7. Gabapentin. 8. Seroquel. 9. Keppra. 10. Zofran as needed. 11. Morphine sulfate Hydrocodone with Tylenol. 12. Norepinephrine drip. IMPRESSION: 1. Septic shock. 2. Chronic ventilator dependent respiratory failure. 3. Chronic kidney disease with acute kidney injury. 4. Chronic anemia. 5. History of seizure disorder. 6. History of nephrolithiasis. 7. Paraplegia. 8. Spinal cord injury. 9. Multiple decubiti. PLAN: 1. Continue long-term ventilator support. 2. Continue antibiotics. Patient has been seen by infectious disease underwriting consultant. 3. Continue blood pressure support, IV fluids and Levophed, dose to be titrated with close monitorin g of his blood pressure. 4. The patient will initiate TIA tube feedings to maintain his nutritional status. 5. Continue DVT prophylaxis. 6. Continue GI prophylaxis. 7. Continue supportive therapy. Dictated By: HUMBERTO PEREZ MD, SR/QUE Conf#: [id number] DID#: [id number]
[2018-09-04] MEDS: VANCOMYCIN 750 MG (PMX) 250 ML IVPB SCH (17:24)
[2018-09-04] MEDS: ACETAMINOPHEN 650MG/20.3ML CUP GTB PRN (21:42)
[2018-09-04] MEDS: FAMOTIDINE 20 MG INJ IV SCH (21:43)
[2018-09-05] VITALS (108 sets, daily range): BP systolic 67–112; BP diastolic 45–68; PULSE 92–113; RESP 15–27
[2018-09-05] MEDS: SOD CHLORIDE 0.9% 1,000 ML IV SCH (02:16)
[2018-09-05] MEDS: metroNIDAZOLE 500 MG TAB NGT SCH ×3 (05:00→21:00)
[2018-09-05] MEDS: NORepinephrine 8MG/250 ML (PMX 250 ML IV SCH ×2 (05:23→17:12)
[2018-09-05] MEDS: LEVETIRACETAM (100 MG/ML) 5ML CUP GTB SCH ×2 (09:12→20:47)
[2018-09-05] MEDS: ZINC SULFATE 220 MG CAP GTB SCH (09:13)
[2018-09-05] MEDS: CEFEPIME 2GM/50 ML (PMX) 50 ML IVPB SCH (09:13)
[2018-09-05] MEDS: ASCORBIC ACID 500 MG TAB GTB SCH (09:13)
[2018-09-05] MEDS: QUETIAPINE 25 MG TAB GTB SCH ×2 (09:13→20:47)
[2018-09-05] MEDS: GABAPENTIN (50 MG/ML PO SYG) GTB SCH ×2 (09:13→20:57)
--- NOTE | 2018-09-05 09:20 | PN ---
Date/Time of Note Date/Time of Note DATE: 09/05/18 TIME: 09:20 Assessment/Plan VTE Prophylaxis Risk score (from Ns)>0 risk: 10 SCD applied (from Ns): Yes Pharmacological prophylaxis: LMWH Lines/Catheters IV Catheter Type (from Nrsg): Central Line Central line still needed: Yes Assessment/Plan Hospital Course 1) sepsis - IV antibiotics 2) hypotension - secondary to #1 - give IV fluids, on vasopressors 3) respiratory failure - continue on vent 4) seizure disorder - continue keppra Result Diagram: 09/05/18 0420 09/05/18 0420 Results 24hrs Laboratory Tests Test 09/04/18 13:03 09/05/18 04:20 Lab Scanned Report REFERENCE LAB White Blood Count 9.4 # Red Blood Count 2.89 L Hemoglobin 8.2 L Hematocrit 29.2 L Mean Corpuscular Volume 101.0 Mean Corpuscular Hemoglobin 28.4 L Mean Corpuscular Hemoglobin Concent 28.1 L Red Cell Distribution Width 17.7 H Platelet Count 101 L Mean Platelet Volume 13.3 H Immature Granulocytes % 0.500 H Neutrophils % 83.9 H Lymphocytes % 5.1 L Monocytes % 6.9 Eosinophils % 3.3 Basophils % 0.3 Nucleated Red Blood Cells % 0.0 Immature Granulocytes # 0.050 H Neutrophils # 7.9 H Lymphocytes # 0.5 L Monocytes # 0.7 Eosinophils # 0.3 Basophils # 0.0 Nucleated Red Blood Cells # 0.0 Sodium Level 151 H Potassium Level 4.2 Chloride Level 124 H Carbon Dioxide Level 15 L Anion Gap 12 Blood Urea Nitrogen 91 H Creatinine 2.10 H Est Glomerular Filtrat Rate mL/min 35 L Glucose Level 138 # Calcium Level 8.2 L Subjective 24 Hr Interval Summary Free Text/Dictation Sedated, trach in place, on vasopressors Exam/Review of Systems Exam Vitals Vital Signs Date Temp Pulse Resp B/P (MAP) Pulse Ox O2 O2 Flow FiO2 Time Delivery Rate 09/05/18 104 20 110/66 100 07:00 (81) 09/05/18 40 05:32 09/05/18 99.0 Mechanical 04:00 Ventilator Intake and Output 09/04/18 09/04/18 09/05/18 1515:00 23:00 07:00 IntakeIntake Total 689.0 ml 1232 ml 1210.5 ml OutputOutput Total 360 ml 445 ml 465 ml BalanceBalance 329.0 ml 787 ml 745.5 ml Constitutional: well developed Head: normocephalic, atraumatic Neck: supple Respiratory: diminished breath sounds Cardiovascular: regular rate and rhythm Gastrointestinal: soft, non-tender Extremities: normal pulses Results Results 24hrs Laboratory Tests Test 09/04/18 13:03 09/05/18 04:20 Lab Scanned Report REFERENCE LAB White Blood Count 9.4 # Red Blood Count 2.89 L Hemoglobin 8.2 L Hematocrit 29.2 L Mean Corpuscular Volume 101.0 Mean Corpuscular Hemoglobin 28.4 L Mean Corpuscular Hemoglobin Concent 28.1 L Red Cell Distribution Width 17.7 H Platelet Count 101 L Mean Platelet Volume 13.3 H Immature Granulocytes % 0.500 H Neutrophils % 83.9 H Lymphocytes % 5.1 L Monocytes % 6.9 Eosinophils % 3.3 Basophils % 0.3 Nucleated Red Blood Cells % 0.0 Immature Granulocytes # 0.050 H Neutrophils # 7.9 H Lymphocytes # 0.5 L Monocytes # 0.7 Eosinophils # 0.3 Basophils # 0.0 Nucleated Red Blood Cells # 0.0 Sodium Level 151 H Potassium Level 4.2 Chloride Level 124 H Carbon Dioxide Level 15 L Anion Gap 12 Blood Urea Nitrogen 91 H Creatinine 2.10 H Est Glomerular Filtrat Rate mL/min 35 L Glucose Level 138 # Calcium Level 8.2 L Medications Medication Current Medications Sodium Chloride 1,000 ml @ 100 mls/hr Q10H IV Last administered on 09/05/18at 02:16; Admin Dose 100 MLS/HR; Start 09/02/18 at 13:17 Ondansetron HCl (Zofran Inj) 4 mg Q6H PRN IV NAUSEA AND/OR VOMITING; Start 09/02/18 at 13:30 Acetaminophen (Tylenol Liquid) 650 mg Q4H PRN GTB PAIN LEVEL 1-3 OR FEVER Last administered on 09/04/18at 21:42; Admin Dose 650 MG; Start 09/02/18 at 13:30 Morphine Sulfate (morphine) 2 mg Q4H PRN IV PAIN LEVEL 7-10 Last administered on 09/04/18at 21:43; Admin Dose 2 MG; Start 09/02/18 at 13:30 Famotidine (Pepcid Iv) 20 mg Q24H IV Last administered on 09/04/18 21:43; Admin Dose 20 MG; Start 09/02/18 at 21:00 Enoxaparin Sodium (Lovenox) 30 mg DAILY SC Last administered on 09/04/18 10:05; Admin Dose 30 MG; Start 09/03/18 at 09:00 Cefepime HCl 50 ml @ 100 mls/hr Q24H IVPB Last administered on 09/04/18 09:40; Admin Dose 100 MLS/HR; Start 09/03/18 at 09:00 Ascorbic Acid (Vitamin C) 500 mg DAILY GTB Last administered on 09/04/18 09:39; Admin Dose 500 MG; Start 09/03/18 at 09:00 Diphenhydramine HCl (Benadryl) 25 mg QHS PRN GTB ITCHING; Start 09/02/18 at 13:30 Gabapentin (Neurontin Liquid) 300 mg BID GTB Last administered on 09/04/18 21:43; Admin Dose 300 MG; Start 09/02/18 at 21:00 Acetaminophen/ Hydrocodone Bitart ([place] (5/325)) 1 tab Q4H WHILE AWAKE PRN GTB SEVERE PAIN LEVEL 7-10 Last administered on 09/04/18 05:10; Admin Dose 1 TAB; Start 09/02/18 at 13:30 Quetiapine Fumarate (Seroquel) 75 mg BID GTB Last administered on 09/04/18 21:43; Admin Dose 75 MG; Start 09/02/18 at 21:00 Zinc Sulfate (Zinc Sulfate) 220 mg DAILY GTB Last administered on 09/04/18 09:39; Admin Dose 220 MG; Start 09/03/18 at 09:00 Levetiracetam (Keppra Liquid) 500 mg BID GTB Last administered on 09/04/18 21:42; Admin Dose 500 MG; Start 09/02/18 at 21:00 Albuterol (Ventolin Hfa) 2 puff Q4H RESP THERAPY PRN INH SHORTNESS OF BREATH Last administered on 09/04/18 15:03; Admin Dose 2 PUFF; Start 09/03/18 at 12:00 Vancomycin HCl (Vanco Iv Per Pharmacy) VANCOMYCIN PER PHARMACY PER PROTOCOL XX ; Start 09/03/18 at 17:00 Vancomycin/Sodium Chloride 250 ml @ 125 mls/hr Q24H IVPB Last administered on 09/04/18at 17:24; Admin Dose 125 MLS/HR; Start 09/03/18 at 17:30 Norepinephrine 250 ml @ 0 mls/hr TITRATE IV Last administered on 09/05/18at 05:23; Admin Dose 26.25 MLS/HR; Start 09/03/18 at 20:30 Miscellaneous Information (*Rx Drug Level Order Reminder*) VANCOMYCIN TR 09/05 AT 1,630 1630 ONCE XX ; Start 09/05/18 at 16:30; Stop 09/05/18 at 16:31 Metronidazole (Flagyl) 500 mg Q8 NGT Last administered on 09/05/18at 05:00; Admin Dose 500 MG; Start 09/04/18 at 14:00 DANAY MUIR Sep 05, 2018 09:20
[2018-09-05] MEDS: ENOXAPARIN 30 MG/0.3 ML SYG SC SCH (09:23)
[2018-09-05] MEDS: LEVALBUTEROL (NEB) 1.25 MG/0.5 ML AMP HHN SCH ×3 (11:00→19:56)
[2018-09-05] MEDS: ACETYLCYSTEINE 20% 4 ML VIAL NEB SCH ×3 (11:00→19:56)
[2018-09-05] MEDS: IPRATROPIUM (NEB) 0.5 MG/2.5 ML AMP HHN SCH ×3 (11:00→19:56)
[2018-09-05] MEDS: morphine 2 MG INJ IV PRN (11:29)
--- NOTE | 2018-09-05 13:09 | PN ---
DATE: 09/05/2018 SUBJECTIVE: The patient is in ICU on the ventilator support. He is awake, responsive. The blood pr essure is still being maintained on Levophed at 10 mcg dosage. OBJECTIVE: VITAL SIGNS: The most recent vital signs show temperature 99, blood pressure 99/58, pulse rate 106, respirations 22, pulse oximetry 100% saturation. He is on 40% oxygen. NECK: Tracheal secretions are quite thick and mucoid. No gross bleeding seen. HEART: Regular rhythm with sinus tachycardia. CHEST: Breath sounds are diminished in both the lower lung tierney with a few intermittent rales and rhonchi. ABDOMEN: Soft, no distention seen. He is tolerating tube feedings. The abdomen is soft, not distend ed, tolerating G-tube feedings. No vomiting reported. EXTREMITIES: Show no edema. He is paraplegic. LABORATORY DATA: Show sodium 151, potassium 4.2, glucose 138, BUN 91, creatinine 2.1. Both BUN and creatinine are gradually improving. The CBC shows a WBC 9400 gradually coming down, hemoglobin 8.2, hematocrit 29.2, platelets 101,000. These are also gradually improving. Culture results show no growth in blood, stool culture shows poor response to be identified. The MRS A screening is negative. CURRENT MEDICATIONS: 1. Metronidazole. 2. Levophed drip for his blood pressure. 3. Vancomycin. 4. Lovenox for DVT prophylaxis. 5. Cefepime. 6. Ascorbic acid. 7. Zinc sulfate. 8. Pepcid. 59. Gabapentin. 10. Seroquel. 11. Keppra. 12. Zofran and Tylenol and morphine as needed. 13. [place] as needed. IMPRESSION: 1. Septic shock. 2. Chronic ventilator dependent respiratory failure. 3. Chronic kidney disease with acute kidney injury. 4. Chronic anemia. 5. History of seizure disorder. 6. History of nephrolithiasis. 7. Paraplegia secondary to previous spinal cord injury. 8. Multiple decubiti. PLAN: 1. Continue long-term ventilator support. 2. Continue antibiotics as per the infectious disease chain sales consultant's recommendations. 3. Continue blood pressure support with Levophed. 4. Continue tube feedings just started last night. 5. Continue DVT prophylaxis. 6. Continue GI prophylaxis. 7. Continue supportive therapy. Dictated By: HUMBERTO PEREZ MD SR/QUE Conf#: [id number] [employer]#: [id number] CC: DAANY MUIR MD;*End*
[2018-09-05] MEDS: HYDROCODONE/APAP (5/325) TAB GTB PRN (16:26)
--- NOTE | 2018-09-05 17:49 | PN ---
DATE: 09/05/2018 SUBJECTIVE: No acute changes. The patient remains on Levophed drip, still with diarrhea afebrile. WBC 9.4, platelets 101, neutrophils 83.9, BUN 91, creatinine 2.1. MICROBIOLOGY: Blood cultures remain negative. Urine culture preliminary growing yeast. ALLERGIES: TETRACYCLINE. INDWELLINGS: Trach, PEG, PICC line, suprapubic catheter. ANTIMICROBIALS: The patient is on: 1. IV vancomycin. 2. Flagyl. 3. Cefepime. PHYSICAL EXAMINATION: GENERAL: This is a chronically ill-appearing, debilitated, middle-aged man who is in no distress. HEENT: Head atraumatic, normocephalic. Sclerae anicteric. Buccal mucosa dry. NECK: Supple. Tracheostomy present. CHEST: Rise symmetrical. Breath sounds diminished to bases. HEART: S1, S2. ABDOMEN: Soft, bowel sounds present. EXTREMITIES: Contractured. ASSESSMENT: 1. Severe sepsis with shock. 2. Recurrent urinary tract infection. 3. Diarrhea, possible Clostridium difficile colitis. 4. Chronic respiratory failure. 5. Acute on chronic encephalopathy. 6. Acute on chronic kidney disease, history of nephrectomy. PLAN: We are going to add Voriconazole to the regimen. Continue antibiotics. Await for stool for C . difficile. Dictated By: REGINALDO CHERY CUSTOMER DATA TECHNICIAN for ANTONELLA STEWART MD NI/NTS Conf#: [id number] DID#: [id number] CC: DANAY MUIR MD;*EndCC*
[2018-09-05] MEDS ORDERED: VANCOMYCIN 750 MG (PMX) 250 ML IVPB SCH (19:00)
[2018-09-05] MEDS: VORICONAZOLE 200 MG TAB PO SCH (20:47)
[2018-09-05] MEDS: FAMOTIDINE 20 MG INJ IV SCH (20:55)
[2018-09-06] VITALS (104 sets, daily range): BP systolic 82–109; BP diastolic 45–85; PULSE 94–115; RESP 17–34
[2018-09-06] MEDS: ACETYLCYSTEINE 20% 4 ML VIAL NEB SCH ×4 (01:12→19:38)
[2018-09-06] MEDS: IPRATROPIUM (NEB) 0.5 MG/2.5 ML AMP HHN SCH ×4 (01:12→19:38)
[2018-09-06] MEDS: LEVALBUTEROL (NEB) 1.25 MG/0.5 ML AMP HHN SCH ×4 (01:12→19:38)
[2018-09-06] MEDS: morphine 2 MG INJ IV PRN (02:36)
[2018-09-06] MEDS: HYDROCODONE/APAP (5/325) TAB GTB PRN ×2 (03:48→08:52)
[2018-09-06] MEDS: NORepinephrine 8MG/250 ML (PMX 250 ML IV SCH ×2 (05:00→18:28)
[2018-09-06] MEDS: VANCOMYCIN 750 MG (PMX) 250 ML IVPB SCH (05:12)
[2018-09-06] MEDS: metroNIDAZOLE 500 MG TAB NGT SCH ×3 (06:18→21:38)
[2018-09-06] MEDS: VORICONAZOLE 200 MG TAB PO SCH ×2 (08:51→20:12)
[2018-09-06] MEDS: ZINC SULFATE 220 MG CAP GTB SCH (08:51)
[2018-09-06] MEDS: LEVETIRACETAM (100 MG/ML) 5ML CUP GTB SCH ×2 (08:51→20:12)
[2018-09-06] MEDS: GABAPENTIN (50 MG/ML PO SYG) GTB SCH ×2 (08:51→20:13)
[2018-09-06] MEDS: QUETIAPINE 25 MG TAB GTB SCH ×2 (08:51→20:13)
[2018-09-06] MEDS: ASCORBIC ACID 500 MG TAB GTB SCH (08:52)
[2018-09-06] MEDS: CEFEPIME 2GM/50 ML (PMX) 50 ML IVPB SCH (08:52)
[2018-09-06] MEDS: ENOXAPARIN 30 MG/0.3 ML SYG SC SCH (08:53)
--- NOTE | 2018-09-06 13:14 | PN ---
DATE: 09/06/2018 SUBJECTIVE: The patient is in ICU on the ventilator support through tracheostomy. His blood pressur e is being maintained with Levophed at 10 mcg dosage drip. He is awake, responsive, but his cooperat ion is suboptimal, even with the nursing staff, he does not cooperate much, mostly for turning and ch anging the dressings, etc. His diarrhea seems to be getting less. He has not had any vomiting. PHYSICAL EXAMINATION: VITAL SIGNS: Show temperature 96.5, blood pressure 89/51, pulse rate 95, respirations 21, pulse oxim etry 100% saturation. He is on 40% oxygen. He is getting tidal volume same as set on the ventilator without any significant . NECK: Tracheal secretions are getting less, the Mucomyst seems to be helping. HEART: Regular sinus rhythm. CHEST: Breath sounds are heard bilaterally, diminished in both the lower lung tierney with a few inte rmittent rales and rhonchi. ABDOMEN: Soft. Tolerating gastrostomy tube feedings. Diarrhea is getting less. Bowel sounds are p resent. EXTREMITIES: Show no edema. He is paraplegic. LABORATORY DATA: Show sodium 152, potassium 3.9, bicarbonate 19, BUN 83, creatinine 1.94. Both BUN and creatinine are gradually decreasing. Glucose 155. The CBC shows a WBC 6900, hemoglobin 7.8, hem atocrit 26.7, platelets are decreased at 87,000. The culture results show yeast growing in the urine culture to be identified. He is on Vfend, blood culture shows no growth. His medications include: 1. Vfend. 2. Pepcid. 3. Vancomycin. 3. Cefepime. 4. Mucomyst inhalation. 5. Atrovent and Xopenex inhalation. 6. Lovenox for DVT prophylaxis. 7. Ascorbic acid. 8. Zinc sulfate. 9. Neurontin. 10. Seroquel. 11. Keppra. 12. Zofran as needed. 13. Tylenol as needed. 14. Morphine sulfate as needed. 15. [place] as needed. IMPRESSION: 1. Septic shock. 2. Chronic ventilator dependent respiratory failure. 3. Chronic kidney disease with acute kidney injury. 4. Chronic anemia. 5. History of seizure disorder. 6. History of nephrolithiasis. 7. History of bipolar disorder. 8. Paraplegia secondary to previous spinal cord injury. 9. Multiple decubiti. PLAN: 1. Continue long-term ventilator support. 2. Continue antibiotics as per the infectious disease product safety consultant's recommendations. 3. Continue blood pressure support with Levophed. 4. Continue tube feedings as tolerated. 5. Continue DVT prophylaxis. 6. Continue GI prophylaxis. 7. Continue wound care. 8. Continue supportive therapy. Dictated By: HUMBERTO PEREZ MD SR/NTS Conf#: [id number] DID#: [id number] CC: DANAY MUIR MD;*EndCC*
--- NOTE | 2018-09-06 14:04 | PN ---
Date/Time of Note Date/Time of Note DATE: 09/06/18 TIME: 14:03 Assessment/Plan VTE Prophylaxis Risk score (from Ns)>0 risk: 9 SCD applied (from Ns): Yes Pharmacological prophylaxis: LMWH Lines/Catheters IV Catheter Type (from Nrsg): Central Line Central line still needed: Yes Reason Cath still needed: skin wounds contaminated by urine Assessment/Plan Hospital Course 1) sepsis - IV antibiotics 2) hypotension - secondary to #1 - give IV fluids, on vasopressors 3) respiratory failure - continue on vent 4) seizure disorder - continue keppra Result Diagram: 09/06/18 0400 09/06/18 0400 Results 24hrs Laboratory Tests Test 09/05/18 16:27 09/06/18 04:00 Vancomycin Level Trough 19.8 White Blood Count 6.9 # Red Blood Count 2.67 L Hemoglobin 7.8 L Hematocrit 26.7 L Mean Corpuscular Volume 100.0 Mean Corpuscular Hemoglobin 29.2 Mean Corpuscular Hemoglobin Concent 29.2 L Red Cell Distribution Width 17.7 H Platelet Count 87 L Mean Platelet Volume 13.3 H Immature Granulocytes % 0.400 Neutrophils % 78.7 H Lymphocytes % 4.6 L Monocytes % 6.3 Eosinophils % 9.9 H Basophils % 0.1 Nucleated Red Blood Cells % 0.0 Immature Granulocytes # 0.030 Neutrophils # 5.5 Lymphocytes # 0.3 L Monocytes # 0.4 Eosinophils # 0.7 H Basophils # 0.0 Nucleated Red Blood Cells # 0.0 Sodium Level 152 H Potassium Level 3.9 Chloride Level 126 H Carbon Dioxide Level 19 L Anion Gap 7 Blood Urea Nitrogen 83 H Creatinine 1.94 H Est Glomerular Filtrat Rate mL/min 38 L Glucose Level 155 Calcium Level 8.2 L Phosphorus Level 2.6 Magnesium Level 2.2 Subjective 24 Hr Interval Summary Free Text/Dictation Patient sedated, is noncomplaint with treatment such as turning per nursing. Exam/Review of Systems Exam Vitals Vital Signs Date Temp Pulse Resp B/P (MAP) Pulse Ox O2 O2 Flow FiO2 Time Delivery Rate 09/06/18 106 12:00 09/06/18 21 99 40 11:27 09/06/18 89/51 (64) 09:15 09/06/18 Mechanical 09:00 Ventilator Trach Collar 09/06/18 97.3 08:00 Intake and Output 09/05/18 09/05/18 09/06/18 1515:00 23:00 07:00 IntakeIntake Total 1126.25 ml 777.470 ml 966.250 ml OutputOutput Total 680 ml 640 ml 445 ml BalanceBalance 446.25 ml 137.470 ml 521.250 ml Constitutional: well developed Head: normocephalic, atraumatic Neck: supple Respiratory: diminished breath sounds Cardiovascular: regular rate and rhythm Gastrointestinal: soft, non-tender Extremities: normal pulses Results Results 24hrs Laboratory Tests Test 09/05/18 16:27 09/06/18 04:00 Vancomycin Level Trough 19.8 White Blood Count 6.9 # Red Blood Count 2.67 L Hemoglobin 7.8 L Hematocrit 26.7 L Mean Corpuscular Volume 100.0 Mean Corpuscular Hemoglobin 29.2 Mean Corpuscular Hemoglobin Concent 29.2 L Red Cell Distribution Width 17.7 H Platelet Count 87 L Mean Platelet Volume 13.3 H Immature Granulocytes % 0.400 Neutrophils % 78.7 H Lymphocytes % 4.6 L Monocytes % 6.3 Eosinophils % 9.9 H Basophils % 0.1 Nucleated Red Blood Cells % 0.0 Immature Granulocytes # 0.030 Neutrophils # 5.5 Lymphocytes # 0.3 L Monocytes # 0.4 Eosinophils # 0.7 H Basophils # 0.0 Nucleated Red Blood Cells # 0.0 Sodium Level 152 H Potassium Level 3.9 Chloride Level 126 H Carbon Dioxide Level 19 L Anion Gap 7 Blood Urea Nitrogen 83 H Creatinine 1.94 H Est Glomerular Filtrat Rate mL/min 38 L Glucose Level 155 Calcium Level 8.2 L Phosphorus Level 2.6 Magnesium Level 2.2 Medications Medication Current Medications Ondansetron HCl (Zofran Inj) 4 mg Q6H PRN IV NAUSEA AND/OR VOMITING; Start 09/02/18 at 13:30 Acetaminophen (Tylenol Liquid) 650 mg Q4H PRN GTB PAIN LEVEL 1-3 OR FEVER Last administered on 09/04/18at 21:42; Admin Dose 650 MG; Start 09/02/18 at 13:30 Morphine Sulfate (morphine) 2 mg Q4H PRN IV PAIN LEVEL 7-10 Last administered on 09/06/18at 02:36; Admin Dose 2 MG; Start 09/02/18 at 13:30 Enoxaparin Sodium (Lovenox) 30 mg DAILY SC Last administered on 09/06/18 08:53; Admin Dose 30 MG; Start 09/03/18 at 09:00 Cefepime HCl 50 ml @ 100 mls/hr Q24H IVPB Last administered on 09/06/18 08:52; Admin Dose 100 MLS/HR; Start 09/03/18 at 09:00 Ascorbic Acid (Vitamin C) 500 mg DAILY GTB Last administered on 09/06/18 08:52; Admin Dose 500 MG; Start 09/03/18 at 09:00 Diphenhydramine HCl (Benadryl) 25 mg QHS PRN GTB ITCHING; Start 09/02/18 at 13:30 Gabapentin (Neurontin Liquid) 300 mg BID GTB Last administered on 09/06/18 08:51; Admin Dose 300 MG; Start 09/02/18 at 21:00 Acetaminophen/ Hydrocodone Bitart ([place] (5/325)) 1 tab Q4H WHILE AWAKE PRN GTB SEVERE PAIN LEVEL 7-10 Last administered on 09/06/18 08:52; Admin Dose 1 TAB; Start 09/02/18 at 13:30 Quetiapine Fumarate (Seroquel) 75 mg BID GTB Last administered on 09/06/18 08:51; Admin Dose 75 MG; Start 09/02/18 at 21:00 Zinc Sulfate (Zinc Sulfate) 220 mg DAILY GTB Last administered on 09/06/18 08:51; Admin Dose 220 MG; Start 09/03/18 at 09:00 Levetiracetam (Keppra Liquid) 500 mg BID GTB Last administered on 09/06/18 08:51; Admin Dose 500 MG; Start 09/02/18 at 21:00 Albuterol (Ventolin Hfa) 2 puff Q4H RESP THERAPY PRN INH SHORTNESS OF BREATH L ast administered on 09/04/18 15:03; Admin Dose 2 PUFF; Start 09/03/18 at 12:00 Vancomycin HCl (Vanco Iv Per Pharmacy) VANCOMYCIN PER PHARMACY PER PROTOCOL XX ; Start 09/03/18 at 17:00 Norepinephrine 250 ml @ 0 mls/hr TITRATE IV Last administered on 09/06/18 05:00; Admin Dose 16.875 MLS/HR; Start 09/03/18 at 20:30 Metronidazole (Flagyl) 500 mg Q8 NGT Last administered on 09/06/18 13:52; Admin Dose 500 MG; Start 09/04/18 at 14:00 Acetylcysteine (Mucomyst) 1 ml Q6H RESP THERAPY NEB Last administered on 09/06/18 13:10; Admin Dose 1 ML; Start 09/05/18 at 10:00 Levalbuterol (Xopenex Neb) 1.25 mg Q6H RESP THERAPY HHN Last administered on 09/06/18 13:10; Admin Dose 1.25 MG; Start 09/05/18 at 10:00 Ipratropium [place] (Atrovent 0.02% (Neb)) 0.5 mg Q6H RESP THERAPY HHN Last administered on 09/06/18at 13:10; Admin Dose 0.5 MG; Start 09/05/18 at 10:00 Voriconazole (Vfend) 200 mg BID PO Last administered on 09/06/18at 08:51; Admin Dose 200 MG; Start 09/05/18 at 21:00 Vancomycin/Sodium Chloride 250 ml @ 125 mls/hr Q36H IVPB Last administered on 09/06/18at 05:12; Admin Dose 125 MLS/HR; Start 09/06/18 at 05:30 Famotidine (Pepcid) 20 mg HS GTB ; Start 09/06/18 at 21:00 DANAY MUIR Sep 06, 2018 14:04
--- NOTE | 2018-09-06 14:35 | PN ---
DATE: 09/06/2018 SUBJECTIVE: Patient remains on Levophed drip. He is lethargic, in no distress. No fevers overnight . WBC 6.9, H and H 7.8 and 26.7, platelets 87, neutrophils 78.7, BUN 83, creatinine 1.94. MICROBIOLOGY: Blood cultures remain negative. Urine culture growing yeast. ANTIMICROBIALS: He is on vancomycin, Vfend, Flagyl and cefepime. Stool for C. difficile pending. INDWELLINGS: Trach, PEG, rectal tube and suprapubic catheter. PHYSICAL EXAMINATION: GENERAL: This is a chronically ill-appearing, wasted, middle-aged man who is in no distress. HEENT: Head atraumatic, normocephalic. NECK: Supple. Tracheostomy present. CHEST: Rise symmetrical. Breath sounds diminished to bases. HEART: S1, S2. ABDOMEN: Soft, bowel sounds hypoactive. EXTREMITIES: Contractured. ASSESSMENT: 1. Severe sepsis with shock. 2. Ongoing diarrhea, rule out Clostridium difficile colitis. 3. Recurrent urinary tract infection. 4. Questionable pneumonia. 5. Quadriplegia. 6. Chronic kidney disease status post nephrectomy. 7. ALLERGIES: Tetracycline's. PLAN: The patient remains hemodynamically unstable. We are going to keep him on current antibiotics . Repeat chest x-ray in a.m. Follow recommendations of specialists. Dictated By: REGINALDO CHERY APPAREL RENTAL CLERK for ANTONELLA STEWART MD NI/NTS Conf#: [id number] DID#: [id number] CC: DANAY MUIR MD;*EndCC*
[2018-09-06] MEDS: FAMOTIDINE 20 MG TAB GTB SCH (20:12)
[2018-09-07] VITALS (107 sets, daily range): BP systolic 80–130; BP diastolic 40–113; PULSE 88–113; RESP 1–31
[2018-09-07] MEDS: ACETYLCYSTEINE 20% 4 ML VIAL NEB SCH ×4 (01:30→19:21)
[2018-09-07] MEDS: IPRATROPIUM (NEB) 0.5 MG/2.5 ML AMP HHN SCH ×4 (01:30→19:21)
[2018-09-07] MEDS: LEVALBUTEROL (NEB) 1.25 MG/0.5 ML AMP HHN SCH ×4 (01:30→19:21)
[2018-09-07] MEDS: metroNIDAZOLE 500 MG TAB NGT SCH ×3 (06:00→21:05)
[2018-09-07] MEDS: NORepinephrine 8MG/250 ML (PMX 250 ML IV SCH (06:04)
[2018-09-07] MEDS: QUETIAPINE 25 MG TAB GTB SCH ×2 (09:00→21:00)
[2018-09-07] MEDS: GABAPENTIN (50 MG/ML PO SYG) GTB SCH ×2 (09:20→21:05)
[2018-09-07] MEDS: ASCORBIC ACID 500 MG TAB GTB SCH (09:20)
[2018-09-07] MEDS: LEVETIRACETAM (100 MG/ML) 5ML CUP GTB SCH ×2 (09:20→21:05)
[2018-09-07] MEDS: ZINC SULFATE 220 MG CAP GTB SCH (09:20)
[2018-09-07] MEDS: VORICONAZOLE 200 MG TAB PO SCH ×2 (09:20→21:05)
[2018-09-07] MEDS: DEXTROSE 5% 1,000 ML IV SCH (09:21)
[2018-09-07] MEDS: CEFEPIME 2GM/50 ML (PMX) 50 ML IVPB SCH (09:21)
--- NOTE | 2018-09-07 09:29 | PQ ---
Date/Time of Note Date/Time of Note DATE: 09/07/18 TIME: 09:[address] Muir , A review of the medical record found a need for documentation clarification. per documentation in wound care nurse consultation "- Sacrococcyx healing stage 4 pressure injury with scar tissue extended to buttocks and bilateral ischial areas. Condition present on admission - Left ischial stage 3 pressure injury. Condition present on admission. - Right ischial healing stage 3 pressure injury. Condition present on admission. Please specify if you agree with wound care assessment of pressure ulcer stage and location. Thank you Please clarify a diagnosis being treated. To facilitate accurate and complete coding, please tomy ( x ) the suspected diagnosis that apply: ( X ) YES ( ) No ( ) Other Please provide your response by clicking edit document,make your choice (x ) , click ok/save and finally click sign. You may alsodocument your responseinyour progress notes. Thank you for your time. Darryl MUELLER,CCS,CCDS Clinical Manager Hematology Health Information Management, CDI and Coding Services Room # 1525 - [address] [address] DARRYL MCALLISTER Sep 07, 2018 09:29 DANAY MUIR Sep 07, 2018 13:27
--- NOTE | 2018-09-07 09:33 | PQ ---
Date/Time of Note Date/Time of Note DATE: 09/07/18 TIME: 09:[address] Muir, A review of the medical record found a need for documentation clarification. per documentation in RD notes, patient admitted with BMI 17.7, patient is on tube feeding. patient has severe muscle wasting as well as severe subcutaneus fat loss with popor PO intake with multiple pressure ulcers. please specify a diagnosis related to patient's nutrition. Thank you Please clarify a diagnosis being treated. To facilitate accurate and complete coding, please tomy ( x ) the suspected diagnosis that apply: ( X ) Severe protein calorie malnutrition ( ) Moderate protein calorie malnutrition ( ) Mild protein calorie malnutrition ( ) Underweight ( ) Other Please provide your response by clicking edit document,make your choice (x ) , click ok/save and finally click sign. You may alsodocument your responseinyour progress notes. Thank you for your time. Darryl MUELLER,CCS,CCDS Clinical Kelly Machine Operator Health Information Management, CDI and Coding Services [phone] Room # 1525 - [address] [address] DARRYL MCALLISTER Sep 07, 2018 09:33 DANAY MUIR Sep 07, 2018 13:27
[2018-09-07] MEDS: ENOXAPARIN 30 MG/0.3 ML SYG SC SCH (09:38)
--- NOTE | 2018-09-07 13:23 | CONS ---
Assessment/Plan Assessment/Plan Hospital Course (Demo Recall) SUBJECTIVE: Remains unchanged still on Levophed drip in no distress with low- grade fevers WBC 6 neutrophils 70 BUN 82 creatinine 1.84lets 87, neutrophils 78.7, BUN 83, creatinine 1.94. MICROBIOLOGY: Blood cultures remain negative. Urine culture growing yeast. ANTIMICROBIALS: He is on vancomycin, Vfend, Flagyl and cefepime. Stool for C. difficile pending. INDWELLINGS: Trach, PEG, rectal tube and suprapubic catheter. PHYSICAL EXAMINATION: GENERAL: This is a chronically ill-appearing, wasted, middle-aged man who is in no distress. HEENT: Head atraumatic, normocephalic. NECK: Supple. Tracheostomy present. CHEST: Rise symmetrical. Breath sounds diminished to bases. HEART: S1, S2. ABDOMEN: Soft, bowel sounds hypoactive. EXTREMITIES: Contractured. ASSESSMENT: 1. Severe sepsis with shock. 2. Ongoing diarrhea, rule out Clostridium difficile colitis. 3. Recurrent urinary tract infection. 4. Questionable pneumonia. 5. Quadriplegia. 6. Chronic kidney disease status post nephrectomy. 7. ALLERGIES: Tetracycline's. PLAN: Remains hemodynamically unstable. Continue antibiotics. F/u repeat chest x-ray Consultation Date/Type/Reason Admit Date/Time Sep 02, 2018 at 16:44 Initial Consult Date Type of Consult id Date/Time of Note DATE: 09/07/18 TIME: 13:22 Exam/Review of Systems Exam Vitals Vital Signs Date Temp Pulse Resp B/P (MAP) Pulse Ox O2 O2 Flow FiO2 Time Delivery Rate 09/07/18 107 12:00 09/07/18 27 92/56 (68) 95 Mechanical 11:00 Ventilator Trach Collar 09/07/18 97.6 08:00 09/07/18 40 08:00 Intake and Output 09/06/18 09/06/18 09/07/18 1515:00 23:00 07:00 IntakeIntake Total 808.4375 ml 739.345 ml 744.625 ml OutputOutput Total 585 ml 690 ml 500 ml BalanceBalance 223.4375 ml 49.345 ml 244.625 ml Results Result Diagram: 09/07/18 0440 09/07/18 0440 Results 24hrs Laboratory Tests Test 09/07/18 04:40 White Blood Count 6.0 Red Blood Count 2.67 L Hemoglobin 7.7 L Hematocrit 27.0 L Mean Corpuscular Volume 101.1 H Mean Corpuscular Hemoglobin 28.8 L Mean Corpuscular Hemoglobin Concent 28.5 L Red Cell Distribution Width 18.1 H Platelet Count 94 L Mean Platelet Volume 12.9 H Immature Granulocytes % 0.500 H Neutrophils % 70.0 Lymphocytes % 8.2 L Monocytes % 8.4 Eosinophils % 12.7 H Basophils % 0.2 Nucleated Red Blood Cells % 0.0 Immature Granulocytes # 0.030 Neutrophils # 4.2 Lymphocytes # 0.5 L Monocytes # 0.5 Eosinophils # 0.8 H Basophils # 0.0 Nucleated Red Blood Cells # 0.0 Sodium Level 155 H Potassium Level 4.4 Chloride Level 130 H Carbon Dioxide Level 21 Anion Gap 4 L Blood Urea Nitrogen 82 H Creatinine 1.84 H Est Glomerular Filtrat Rate mL/min 41 L Glucose Level 114 # Calcium Level 8.1 L Magnesium Level 2.2 Medications Medication Current Medications Ondansetron HCl (Zofran Inj) 4 mg Q6H PRN IV NAUSEA AND/OR VOMITING; Start 09/02/18 at 13:30 Acetaminophen (Tylenol Liquid) 650 mg Q4H PRN GTB PAIN LEVEL 1-3 OR FEVER Last administered on 09/04/18at 21:42; Admin Dose 650 MG; Start 09/02/18 at 13:30 Morphine Sulfate (morphine) 2 mg Q4H PRN IV PAIN LEVEL 7-10 Last administered on 09/06/18at 02:36; Admin Dose 2 MG; Start 09/02/18 at 13:30 Enoxaparin Sodium (Lovenox) 30 mg DAILY SC Last administered on 09/07/18at 09:38; Admin Dose 30 MG; Start 09/03/18 at 09:00 Cefepime HCl 50 ml @ 100 mls/hr Q24H IVPB Last administered on 09/07/18 09:21; Admin Dose 100 MLS/HR; Start 09/03/18 at 09:00 Ascorbic Acid (Vitamin C) 500 mg DAILY GTB Last administered on 09/07/18 09:20; Admin Dose 500 MG; Start 09/03/18 at 09:00 Diphenhydramine HCl (Benadryl) 25 mg QHS PRN GTB ITCHING; Start 09/02/18 at 13:30 Gabapentin (Neurontin Liquid) 300 mg BID GTB Last administered on 09/07/18 09 :20; Admin Dose 300 MG; Start 09/02/18 at 21:00 Acetaminophen/ Hydrocodone Bitart ([place] (5/325)) 1 tab Q4H WHILE AWAKE PRN GTB SEVERE PAIN LEVEL 7-10 Last administered on 09/06/18 08:52; Admin Dose 1 TAB; Start 09/02/18 at 13:30 Quetiapine Fumarate (Seroquel) 75 mg BID GTB Last administered on 09/06/18 08:51; Admin Dose 75 MG; Start 09/02/18 at 21:00 Zinc Sulfate (Zinc Sulfate) 220 mg DAILY GTB Last administered on 09/07/18 09:20; Admin Dose 220 MG; Start 09/03/18 at 09:00 Levetiracetam (Keppra Liquid) 500 mg BID GTB Last administered on 09/07/18 09:20; Admin Dose 500 MG; Start 09/02/18 at 21:00 Albuterol (Ventolin Hfa) 2 puff Q4H RESP THERAPY PRN INH SHORTNESS OF BREATH Last administered on 09/04/18 15:03; Admin Dose 2 PUFF; Start 09/03/18 at 12:00 Vancomycin HCl (Vanco Iv Per Pharmacy) VANCOMYCIN PER PHARMACY PER PROTOCOL XX ; Start 09/03/18 at 17:00 Norepinephrine 250 ml @ 0 mls/hr TITRATE IV Last administered on 09/07/18 06:04; Admin Dose 15 MLS/HR; Start 09/03/18 at 20:30 Metronidazole (Flagyl) 500 mg Q8 NGT Last administered on 09/07/18 06:00; Admin Dose 500 MG; Start 09/04/18 at 14:00 Acetylcysteine (Mucomyst) 1 ml Q6H RESP THERAPY NEB Last administered on 09/07/18 08:05; Admin Dose 1 ML; Start 09/05/18 at 10:00 Levalbuterol (Xopenex Neb) 1.25 mg Q6H RESP THERAPY HHN Last administered on 09/07/18 08:05; Admin Dose 1.25 MG; Start 09/05/18 at 10:00 Ipratropium [place] (Atrovent 0.02% (Neb)) 0.5 mg Q6H RESP THERAPY HHN Last administered on 09/07/18 08:05; Admin Dose 0.5 MG; Start 09/05/18 at 10:00 Voriconazole (Vfend) 200 mg BID PO Last administered on 09/07/18 09:20; Admin Dose 200 MG; Start 09/05/18 at 21:00 Vancomycin/Sodium Chloride 250 ml @ 125 mls/hr Q36H IVPB Last administered on 09/06/18 05:12; Admin Dose 125 MLS/HR; Start 09/06/18 at 05:30 Famotidine (Pepcid) 20 mg HS GTB Last administered on 09/06/18 20:12; Admin Dose 20 MG; Start 09/06/18 at 21:00 Dextrose 1,000 ml @ 50 mls/hr Q20H IV Last administered on 09/07/18 09:21; Admin Dose 50 MLS/HR; Start 09/07/18 at 08:30 REGINALDO BOND NP Sep 07, 2018 13:23
--- NOTE | 2018-09-07 13:57 | PN ---
Date/Time of Note Date/Time of Note DATE: 09/07/18 TIME: 13:56 Assessment/Plan VTE Prophylaxis Risk score (from [facility])>0 risk: 9 SCD applied (from [facility]): No SCD contraindicated: other Pharmacological prophylaxis: LMWH Lines/Catheters IV Catheter Type (from [facility]): Central Line Central line still needed: Yes Assessment/Plan Hospital Course 1) sepsis - IV antibiotics 2) hypotension - secondary to #1 - give IV fluids, on vasopressors 3) respiratory failure - continue on vent 4) seizure disorder - continue keppra Result Diagram: 09/07/18 0440 09/07/180 Results 24hrs Laboratory Tests Test 09/07/18 04:40 White Blood Count 6.0 Red Blood Count 2.67 L Hemoglobin 7.7 L Hematocrit 27.0 L Mean Corpuscular Volume 101.1 H Mean Corpuscular Hemoglobin 28.8 L Mean Corpuscular Hemoglobin Concent 28.5 L Red Cell Distribution Width 18.1 H Platelet Count 94 L Mean Platelet Volume 12.9 H Immature Granulocytes % 0.500 H Neutrophils % 70.0 Lymphocytes % 8.2 L Monocytes % 8.4 Eosinophils % 12.7 H Basophils % 0.2 Nucleated Red Blood Cells % 0.0 Immature Granulocytes # 0.030 Neutrophils # 4.2 Lymphocytes # 0.5 L Monocytes # 0.5 Eosinophils # 0.8 H Basophils # 0.0 Nucleated Red Blood Cells # 0.0 Sodium Level 155 H Potassium Level 4.4 Chloride Level 130 H Carbon Dioxide Level 21 Anion Gap 4 L Blood Urea Nitrogen 82 H Creatinine 1.84 H Est Glomerular Filtrat Rate mL/min 41 L Glucose Level 114 # Calcium Level 8.1 L Magnesium Level 2.2 Subjective 24 Hr Interval Summary Free Text/Dictation Patient appears to be more awake but remains hypotensive Exam/Review of Systems Exam Vitals Vital Signs Date Temp Pulse Resp B/P (MAP) Pulse Ox O2 O2 Flow FiO2 Time Delivery Rate 09/07/18 107 12:00 09/07/18 27 92/56 (68) 95 Mechanical 11:00 Ventilator Trach Collar 09/07/18 97.6 08:00 09/07/18 40 08:00 Intake and Output 09/06/18 09/06/18 09/07/18 1515:00 23:00 07:00 IntakeIntake Total 808.4375 ml 739.345 ml 744.625 ml OutputOutput Total 585 ml 690 ml 500 ml BalanceBalance 223.4375 ml 49.345 ml 244.625 ml Constitutional: well developed Head: normocephalic, atraumatic Neck: supple Respiratory: diminished breath sounds Cardiovascular: regular rate and rhythm Gastrointestinal: soft, non-tender Extremities: normal pulses Results Results 24hrs Laboratory Tests Test 09/07/18 04:40 White Blood Count 6.0 Red Blood Count 2.67 L Hemoglobin 7.7 L Hematocrit 27.0 L Mean Corpuscular Volume 101.1 H Mean Corpuscular Hemoglobin 28.8 L Mean Corpuscular Hemoglobin Concent 28.5 L Red Cell Distribution Width 18.1 H Platelet Count 94 L Mean Platelet Volume 12.9 H Immature Granulocytes % 0.500 H Neutrophils % 70.0 Lymphocytes % 8.2 L Monocytes % 8.4 Eosinophils % 12.7 H Basophils % 0.2 Nucleated Red Blood Cells % 0.0 Immature Granulocytes # 0.030 Neutrophils # 4.2 Lymphocytes # 0.5 L Monocytes # 0.5 Eosinophils # 0.8 H Basophils # 0.0 Nucleated Red Blood Cells # 0.0 Sodium Level 155 H Potassium Level 4.4 Chloride Level 130 H Carbon Dioxide Level 21 Anion Gap 4 L Blood Urea Nitrogen 82 H Creatinine 1.84 H Est Glomerular Filtrat Rate mL/min 41 L Glucose Level 114 # Calcium Level 8.1 L Magnesium Level 2.2 Medications Medication Current Medications Ondansetron HCl (Zofran Inj) 4 mg Q6H PRN IV NAUSEA AND/OR VOMITING; Start 09/02/18 at 13:30 Acetaminophen (Tylenol Liquid) 650 mg Q4H PRN GTB PAIN LEVEL 1-3 OR FEVER Last administered on 09/04/18at 21:42; Admin Dose 650 MG; Start 09/02/18 at 13:30 Morphine Sulfate (morphine) 2 mg Q4H PRN IV PAIN LEVEL 7-10 Last administered on 09/06/18at 02:36; Admin Dose 2 MG; Start 09/02/18 at 13:30 Enoxaparin Sodium (Lovenox) 30 mg DAILY SC Last administered on 09/07/18at 09:38; Admin Dose 30 MG; Start 09/03/18 at 09:00 Cefepime HCl 50 ml @ 100 mls/hr Q24H IVPB Last administered on 09/07/18 09:21; Admin Dose 100 MLS/HR; Start 09/03/18 at 09:00 Ascorbic Acid (Vitamin C) 500 mg DAILY GTB Last administered on 09/07/18 09:20; Admin Dose 500 MG; Start 09/03/18 at 09:00 Diphenhydramine HCl (Benadryl) 25 mg QHS PRN GTB ITCHING; Start 09/02/18 at 13:30 Gabapentin (Neurontin Liquid) 300 mg BID GTB Last administered on 09/07/18 09:20; Admin Dose 300 MG; Start 09/02/18 at 21:00 Acetaminophen/ Hydrocodone Bitart ([place] (5/325)) 1 tab Q4H WHILE AWAKE PRN GTB SEVERE PAIN LEVEL 7-10 Last administered on 09/06/18 08:52; Admin Dose 1 TAB; Start 09/02/18 at 13:30 Quetiapine Fumarate (Seroquel) 75 mg BID GTB Last administered on 09/06/18 08:51; Admin Dose 75 MG; Start 09/02/18 at 21:00 Zinc Sulfate (Zinc Sulfate) 220 mg DAILY GTB Last administered on 09/07/18 09:20; Admin Dose 220 MG; Start 09/03/18 at 09:00 Levetiracetam (Keppra Liquid) 500 mg BID GTB Last administered on 09/07/18 09:20; Admin Dose 500 MG; Start 09/02/18 at 21:00 Albuterol (Ventolin Hfa) 2 puff Q4H RESP THERAPY PRN INH SHORTNESS OF BREATH Last administered on 09/04/18 15:03; Admin Dose 2 PUFF; Start 09/03/18 at 12:00 Vancomycin HCl (Vanco Iv Per Pharmacy) VANCOMYCIN PER PHARMACY PER PROTOCOL XX ; Start 09/03/18 at 17:00 Norepinephrine 250 ml @ 0 mls/hr TITRATE IV Last administered on 09/07/18 06:04; Admin Dose 15 MLS/HR; Start 09/03/18 at 20:30 Metronidazole (Flagyl) 500 mg Q8 NGT Last administered on 09/07/18 06:00; Admin Dose 500 MG; Start 09/04/18 at 14:00 Acetylcysteine (Mucomyst) 1 ml Q6H RESP THERAPY NEB Last administered on 09/07/18 08:05; Admin Dose 1 ML; Start 09/05/18 at 10:00 Levalbuterol (Xopenex Neb) 1.25 mg Q6H RESP THERAPY HHN Last administered on 09/07/18 08:05; Admin Dose 1.25 MG; Start 09/05/18 at 10:00 Ipratropium [place] (Atrovent 0.02% (Neb)) 0.5 mg Q6H RESP THERAPY HHN Last administered on 09/07/18 08:05; Admin Dose 0.5 MG; Start 09/05/18 at 10:00 Voriconazole (Vfend) 200 mg BID PO Last administered on 09/07/18 09:20; Admin Dose 200 MG; Start 09/05/18 at 21:00 Vancomycin/Sodium Chloride 250 ml @ 125 mls/hr Q36H IVPB Last administered on 09/06/18 05:12; Admin Dose 125 MLS/HR; Start 09/06/18 at 05:30 Famotidine (Pepcid) 20 mg HS GTB Last administered on 09/06/18 20:12; Admin Dos e 20 MG; Start 09/06/18 at 21:00 Dextrose 1,000 ml @ 50 mls/hr Q20H IV Last administered on 09/07/18 09:21; Admin Dose 50 MLS/HR; Start 09/07/18 at 08:30 DANAY MUIR Sep 07, 2018 13:57
[2018-09-07] MEDS: VANCOMYCIN 750 MG (PMX) 250 ML IVPB SCH (17:44)
--- NOTE | 2018-09-07 19:19 | PN ---
DATE: 09/07/2018 SUBJECTIVE: The patient is in ICU on the ventilator support. He is breathing comfortably synchroniz ed with the ventilator. PHYSICAL EXAMINATION: VITAL SIGNS: This morning shows pulse rate 97, blood pressure 92/56, pulse oximetry 95% saturation, respiratory rate is 27, he has not had any temperature spikes in the last temperature reading was 97. 6 earlier this morning. NECK: Tracheal secretions are getting better, not as much as before. No gross bleeding seen. HEART: Regular rhythm, normal first and second heart sounds. CHEST: Breath sounds are heard bilaterally, diminished in the lower lung tierney with a few intermitt ent rales and rhonchi. ABDOMEN: Soft, tolerating gastrostomy tube feedings. Bowel sounds are present. EXTREMITIES: Show no edema but he is paraplegic. LABORATORY DATA: Show sodium 155, potassium 4.4, carbon dioxide 21, BUN 82, creatinine 1.84, creatin ine is gradually decreasing glucose is 1114. CBC shows WBC 6000, hemoglobin 7.7, hematocrit 27, plat elets within normal limits. There is clear platelets are decreased 94,000. MEDICATIONS: The patient is on: 1. Vancomycin. cefepime and Voriconazole. He also gets albuterol. He also has Xopenex and Atrovent inhalations eva ng with Mucomyst. Maternal resolved. There is also being given Lovenox Ascorbic acid. 2. Zinc sulfate. 3. Gabapentin. 4. Seroquel. 5. Keppra. 6. Tylenol. 7. Zofran as needed, is also being given [place]. 8. Morphine sulfate also being given. IMPRESSION: 1. Septic shock. 2. Chronic ventilator dependent respiratory failure. 3. Chronic kidney disease with acute kidney injury. 4. Chronic anemia. 5. History of seizure disorder. 6. History of nephrolithiasis. 7. History of bipolar disorder. 8. Paraplegia secondary to previous spinal cord injury 99 multiple decubiti. PLAN: 1. Continue long-term ventilator support. 2. Continue antibiotics as per the infectious disease architecture consultant's recommendations. 3. Continue blood pressure support with Levophed. 4. Continue tube feedings as tolerated. 5. Continue DVT prophylaxis. 6. Continue GI prophylaxis. 7. Continue wound care. 8. Continue supportive therapy. Dictated By: HUMBERTO PEREZ MD SR/QUE Conf#: [id number] [facility]#: [id number]
[2018-09-07] MEDS: FAMOTIDINE 20 MG TAB GTB SCH (21:05)
[2018-09-08] VITALS (104 sets, daily range): BP systolic 71–116; BP diastolic 42–78; PULSE 91–113; RESP 14–38
[2018-09-08] MEDS: NORepinephrine 8MG/250 ML (PMX 250 ML IV SCH (00:26)
[2018-09-08] MEDS: ACETYLCYSTEINE 20% 4 ML VIAL NEB SCH ×4 (01:12→19:18)
[2018-09-08] MEDS: IPRATROPIUM (NEB) 0.5 MG/2.5 ML AMP HHN SCH ×4 (01:12→19:18)
[2018-09-08] MEDS: LEVALBUTEROL (NEB) 1.25 MG/0.5 ML AMP HHN SCH ×4 (01:12→19:18)
[2018-09-08] MEDS: DEXTROSE 5% 1,000 ML IV SCH (06:17)
[2018-09-08] MEDS: ENOXAPARIN 30 MG/0.3 ML SYG SC SCH (08:30)
[2018-09-08] MEDS: LEVETIRACETAM (100 MG/ML) 5ML CUP GTB SCH ×2 (08:31→21:10)
[2018-09-08] MEDS: ASCORBIC ACID 500 MG TAB GTB SCH (08:31)
[2018-09-08] MEDS: VORICONAZOLE 200 MG TAB PO SCH ×2 (08:31→21:11)
[2018-09-08] MEDS: ZINC SULFATE 220 MG CAP GTB SCH (08:31)
[2018-09-08] MEDS: CEFEPIME 2GM/50 ML (PMX) 50 ML IVPB SCH (08:32)
[2018-09-08] MEDS: metroNIDAZOLE 500 MG TAB NGT SCH ×3 (08:32→21:11)
[2018-09-08] MEDS: GABAPENTIN (50 MG/ML PO SYG) GTB SCH ×2 (08:32→21:10)
[2018-09-08] MEDS: QUETIAPINE 25 MG TAB GTB SCH ×2 (09:00→21:00)
--- NOTE | 2018-09-08 10:33 | CONS ---
Assessment/Plan Assessment/Plan Hospital Course (Demo Recall) ID PROGRESS NOTE CURRENT ABX: DAY # =>Vanco IV + Cefepime + Flagyl + Vfend 09/08/18 0911 09/08/18 0911 24H INTERVAL SUMMARY * Suprapubic cath growing YEAST * Diarrhea resolved -- Leukocytosis resolved -- low grade temps * Weaning Levophed -- Trach with copious secretions DIAGNOSTIC IMAGING * 09/07/18 CXR: IMPRESSION:There is right lung base consolidation. There is a small left pleural effusion with associated left lung base consolidation. There are increased interstitial markings.There is a small layering right pleural effusion. Follow-up to resolution to exclude underlying neoplasm. MICRO * URINE CULTURE Preliminary Organism 1 YEAST COLONY COUNT >100,000 CFU/ml * 09/03/18 BCx (-) * 09/02/18 BCx (-) * 08/28/18 URINE CX (+) URINE CULTURE Final Organism 1 VANCO RESISTANT ENTEROCOCCUS COLONY COUNT 30,000 - 40,000 CFU/ml . MULTI DRUG RESISTANT ORGANISM * 08/24/18 URINE CULTURE URINE CULTURE Preliminary Organism 1 PSEUDOMONAS SPECIES COLONY COUNT 50,000 - 60,000 CFU/ml Organism 2 PROVIDENCIA STUARTII COLONY COUNT 20,000 - 30,000 CFU/ml * 08/16/18 BCx (-) * 08/16/18 Urine Cx: URINE CULTURE Final Organism 1 ALONA SPECIES, NOT ALBICANS COLONY COUNT >100,000 CFU/ml PHYSICAL EXAMINATION: GENERAL: VSS, NAD HEENT: AT, NC, NECK: Trach with copious secretions CHEST: Rise symmetrical HEART: Pulse RRR ABDOMEN: Benign EXTREMITIES: Warm, dry SKIN: No rash, no diaphoresis ID ASSESSMENT 43 yo M w/quadriplegia, neurogenic bladder w/suprapubic catheter, contracted extremities admit with: 1. Septic shock due to UTI and questionable HCAP 2. Recurrent UTI==> yeast, poss colonized 3. Chronic respiratory failure * Large tracheal opening, s/p evaluation by Dr Woodruff in ENT consultation with recommendation for free flap closure. Patient was evaluated at [facility] medicine refused to have surgery, not cooperative with care. 4. S/P Diarrhea -- ABX associated 5. Acute on chronic kidney disease 6. Pancytopenia 7. History of left nephrectomy 8. Multiple chronic decubitus ulcers 10. Anemia (-)MRSA Nares this admission ABX ALLERGIES: KNDA INVASIVES: PIV CURRENT ABX: DAY # =>Vanco IV + Cefepime + Flagyl + Vfend ID RECOMMENDATIONS/PLAN: 1. Continue current ABX over the weekend -- weaning pressors. . Consultation Date/Type/Reason Admit Date/Time Sep 02, 2018 at 16:44 Initial Consult Date Date/Time of Note DATE: 09/08/18 TIME: 10:16 Exam/Review of Systems Exam Vitals Vital Signs Date Temp Pulse Resp B/P (MAP) Pulse Ox O2 O2 Flow FiO2 Time Delivery Rate 09/08/18 108 27 99 40 08:22 09/08/18 97/68 (78) 06:45 09/08/18 Mechanical 06:00 Ventilator 09/08/18 98.1 04:00 Intake and Output 09/07/18 09/07/18 09/08/18 1515:00 23:00 07:00 IntakeIntake Total 1053.750 ml 1137.500 ml 1091.250 ml OutputOutput Total 675 ml 615 ml 670 ml BalanceBalance 378.750 ml 522.500 ml 421.250 ml Results Result Diagram: 09/08/18 0911 09/08/18 0911 Results 24hrs Laboratory Tests Test 09/08/18 09:11 White Blood Count 4.9 Red Blood Count 2.65 L Hemoglobin 7.7 L Hematocrit 27.1 L Mean Corpuscular Volume 102.3 H Mean Corpuscular Hemoglobin 29.1 Mean Corpuscular Hemoglobin Concent 28.4 L Red Cell Distribution Width 17.8 H Platelet Count 92 L Mean Platelet Volume 12.3 H Immature Granulocytes % 0.800 H Neutrophils % 72.5 Lymphocytes % 8.5 L Monocytes % 7.5 Eosinophils % 10.5 H Basophils % 0.2 Nucleated Red Blood Cells % 0.0 Immature Granulocytes # 0.040 H Neutrophils # 3.6 Lymphocytes # 0.4 L Monocytes # 0.4 Eosinophils # 0.5 Basophils # 0.0 Nucleated Red Blood Cells # 0.0 Sodium Level 150 H Potassium Level 5.1 Chloride Level 126 H Carbon Dioxide Level 20 L Anion Gap 4 L Blood Urea Nitrogen 78 H Creatinine 1.64 H Est Glomerular Filtrat Rate mL/min 46 L Glucose Level 132 Calcium Level 8.2 L Medications Medication Current Medications Ondansetron HCl (Zofran Inj) 4 mg Q6H PRN IV NAUSEA AND/OR VOMITING; Start 09/02/18 at 13:30 Acetaminophen (Tylenol Liquid) 650 mg Q4H PRN GTB PAIN LEVEL 1-3 OR FEVER Last administered on 09/04/18 21:42; Admin Dose 650 MG; Start 09/02/18 at 13:30 Morphine Sulfate (morphine) 2 mg Q4H PRN IV PAIN LEVEL 7-10 Last administered on 09/06/18 02:36; Admin Dose 2 MG; Start 09/02/18 at 13:30 Enoxaparin Sodium (Lovenox) 30 mg DAILY SC Last administered on 09/08/18 08:30; Admin Dose 30 MG; Start 09/03/18 at 09:00 Cefepime HCl 50 ml @ 100 mls/hr Q24H IVPB Last administered on 09/08/18 08:32; Admin Dose 100 MLS/HR; Start 09/03/18 at 09:00 Ascorbic Acid (Vitamin C) 500 mg DAILY GTB Last administered on 09/08/18 08:31; Admin Dose 500 MG; Start 09/03/18 at 09:00 Diphenhydramine HCl (Benadryl) 25 mg QHS PRN GTB ITCHING; Start 09/02/18 at 13:30 Gabapentin (Neurontin Liquid) 300 mg BID GTB Last administered on 09/08/18 08:32; Admin Dose 300 MG; Start 09/02/18 at 21:00 Acetaminophen/ Hydrocodone Bitart ([place] (5/325)) 1 tab Q4H WHILE AWAKE PRN GTB SEVERE PAIN LEVEL 7-10 Last administered on 09/06/18 08:52; Admin Dose 1 TAB; Start 09/02/18 at 13:30 Quetiapine Fumarate (Seroquel) 75 mg BID GTB Last administered on 09/06/18 08:51; Admin Dose 75 MG; Start 09/02/18 at 21:00 Zinc Sulfate (Zinc Sulfate) 220 mg DAILY GTB Last administered on 09/08/18 08:31; Admin Dose 220 MG; Start 09/03/18 at 09:00 Levetiracetam (Keppra Liquid) 500 mg BID GTB Last administered on 09/08/18 08:31; Admin Dose 500 MG; Start 09/02/18 at 21:00 Albuterol (Ventolin Hfa) 2 puff Q4H RESP THERAPY PRN INH SHORTNESS OF BREATH Last administered on 09/04/18 15:03; Admin Dose 2 PUFF; Start 09/03/18 at 12:00 Vancomycin HCl (Vanco Iv Per Pharmacy) VANCOMYCIN PER PHARMACY PER PROTOCOL XX ; Start 09/03/18 at 17:00 Norepinephrine 250 ml @ 0 mls/hr TITRATE IV Last administered on 09/08/18 00:26; Admin Dose 11.25 MLS/HR; Start 09/03/18 at 20:30 Metronidazole (Flagyl) 500 mg Q8 NGT Last administered on 09/08/18 08:32; Admin Dose 500 MG; Start 09/04/18 at 14:00 Acetylcysteine (Mucomyst) 1 ml Q6H RESP THERAPY NEB Last administered on 09/08/18 08:21; Admin Dose 1 ML; Start 09/05/18 at 10:00 Levalbuterol (Xopenex Neb) 1.25 mg Q6H RESP THERAPY HHN Last administered on 09/08/18 08:21; Admin Dose 1.25 MG; Start 09/05/18 at 10:00 Ipratropium [place] (Atrovent 0.02% (Neb)) 0.5 mg Q6H RESP THERAPY HHN Last administered on 09/08/18 08:21; Admin Dose 0.5 MG; Start 09/05/18 at 10:00 Voriconazole (Vfend) 200 mg BID PO Last administered on 09/08/18 08:31; Admin Dose 200 MG; Start 09/05/18 at 21:00 Vancomycin/Sodium Chloride 250 ml @ 125 mls/hr Q36H IVPB Last administered on 09/07/18 17:44; Admin Dose 125 MLS/HR; Start 09/06/18 at 05:30 Famotidine (Pepcid) 20 mg HS GTB Last administered on 09/07/18 21:05; Admin Dose 20 MG; Start 09/06/18 at 21:00 Dextrose 1,000 ml @ 50 mls/hr Q20H IV Last administered on 09/08/18 06:17; A dmin Dose 50 MLS/HR; Start 8/2/19 at 08:30 KELSI CERDA NP Sep 08, 2018 10:29
--- NOTE | 2018-09-08 11:17 | PN ---
Date/Time of Note Date/Time of Note DATE: 09/08/18 TIME: 11:16 Assessment/Plan VTE Prophylaxis Risk score (from [facility])>0 risk: 9 SCD applied (from [facility]): No SCD contraindicated: other Pharmacological prophylaxis: LMWH Lines/Catheters IV Catheter Type (from [facility]): Central Line Central line still needed: Yes Assessment/Plan Hospital Course 1) sepsis - IV antibiotics 2) hypotension - secondary to #1 - give IV fluids, on vasopressors 3) respiratory failure - continue on vent 4) seizure disorder - continue keppra Result Diagram: 09/08/18 0911 09/08/18 0911 Results 24hrs Laboratory Tests Test 09/08/18 09:11 White Blood Count 4.9 Red Blood Count 2.65 L Hemoglobin 7.7 L Hematocrit 27.1 L Mean Corpuscular Volume 102.3 H Mean Corpuscular Hemoglobin 29.1 Mean Corpuscular Hemoglobin Concent 28.4 L Red Cell Distribution Width 17.8 H Platelet Count 92 L Mean Platelet Volume 12.3 H Immature Granulocytes % 0.800 H Neutrophils % 72.5 Lymphocytes % 8.5 L Monocytes % 7.5 Eosinophils % 10.5 H Basophils % 0.2 Nucleated Red Blood Cells % 0.0 Immature Granulocytes # 0.040 H Neutrophils # 3.6 Lymphocytes # 0.4 L Monocytes # 0.4 Eosinophils # 0.5 Basophils # 0.0 Nucleated Red Blood Cells # 0.0 Sodium Level 150 H Potassium Level 5.1 Chloride Level 126 H Carbon Dioxide Level 20 L Anion Gap 4 L Blood Urea Nitrogen 78 H Creatinine 1.64 H Est Glomerular Filtrat Rate mL/min 46 L Glucose Level 132 Calcium Level 8.2 L Subjective 24 Hr Interval Summary Free Text/Dictation Patient sedated, on vasopressors though at low dose Exam/Review of Systems Exam Vitals Vital Signs Date Temp Pulse Resp B/P (MAP) Pulse Ox O2 O2 Flow FiO2 Time Delivery Rate 09/08/18 112 25 98 40 09:15 09/08/18 97/68 (78) 06:45 09/08/18 Mechanical 06:00 Ventilator 09/08/18 98.1 04:00 Intake and Output 09/07/18 09/07/18 09/08/18 1515:00 23:00 07:00 IntakeIntake Total 1053.750 ml 1137.500 ml 1091.250 ml OutputOutput Total 675 ml 615 ml 670 ml BalanceBalance 378.750 ml 522.500 ml 421.250 ml Constitutional: well developed Head: normocephalic, atraumatic Neck: supple Respiratory: diminished breath sounds Cardiovascular: regular rate and rhythm Gastrointestinal: soft, non-tender Extremities: normal pulses Results Results 24hrs Laboratory Tests Test 09/08/18 09:11 White Blood Count 4.9 Red Blood Count 2.65 L Hemoglobin 7.7 L Hematocrit 27.1 L Mean Corpuscular Volume 102.3 H Mean Corpuscular Hemoglobin 29.1 Mean Corpuscular Hemoglobin Concent 28.4 L Red Cell Distribution Width 17.8 H Platelet Count 92 L Mean Platelet Volume 12.3 H Immature Granulocytes % 0.800 H Neutrophils % 72.5 Lymphocytes % 8.5 L Monocytes % 7.5 Eosinophils % 10.5 H Basophils % 0.2 Nucleated Red Blood Cells % 0.0 Immature Granulocytes # 0.040 H Neutrophils # 3.6 Lymphocytes # 0.4 L Monocytes # 0.4 Eosinophils # 0.5 Basophils # 0.0 Nucleated Red Blood Cells # 0.0 Sodium Level 150 H Potassium Level 5.1 Chloride Level 126 H Carbon Dioxide Level 20 L Anion Gap 4 L Blood Urea Nitrogen 78 H Creatinine 1.64 H Est Glomerular Filtrat Rate mL/min 46 L Glucose Level 132 Calcium Level 8.2 L Medications Medication Current Medications Ondansetron HCl (Zofran Inj) 4 mg Q6H PRN IV NAUSEA AND/OR VOMITING; Start 08/07 09/24 at 13:30 Acetaminophen (Tylenol Liquid) 650 mg Q4H PRN GTB PAIN LEVEL 1-3 OR FEVER Last administered on 09/04/18at 21:42; Admin Dose 650 MG; Start 09/02/18 at 13:30 Morphine Sulfate (morphine) 2 mg Q4H PRN IV PAIN LEVEL 7-10 Last administered on 09/06/18at 02:36; Admin Dose 2 MG; Start 09/02/18 at 13:30 Enoxaparin Sodium (Lovenox) 30 mg DAILY SC Last administered on 09/08/18 08:30; Admin Dose 30 MG; Start 09/03/18 at 09:00 Cefepime HCl 50 ml @ 100 mls/hr Q24H IVPB Last administered on 09/08/18 08:32; Admin Dose 100 MLS/HR; Start 09/03/18 at 09:00 Ascorbic Acid (Vitamin C) 500 mg DAILY GTB Last administered on 09/08/18 08:31; Admin Dose 500 MG; Start 09/03/18 at 09:00 Diphenhydramine HCl (Benadryl) 25 mg QHS PRN GTB ITCHING; Start 09/02/18 at 13:30 Gabapentin (Neurontin Liquid) 300 mg BID GTB Last administered on 09/08/18 08:32; Admin Dose 300 MG; Start 09/02/18 at 21:00 Acetaminophen/ Hydrocodone Bitart ([place] (5/325)) 1 tab Q4H WHILE AWAKE PRN GTB SEVERE PAIN LEVEL 7-10 Last administered on 09/06/18 08:52; Admin Dose 1 TAB; Start 09/02/18 at 13:30 Quetiapine Fumarate (Seroquel) 75 mg BID GTB Last administered on 09/06/18 08:51; Admin Dose 75 MG; Start 09/02/18 at 21:00 Zinc Sulfate (Zinc Sulfate) 220 mg DAILY GTB Last administered on 09/08/18 08:31; Admin Dose 220 MG; Start 09/03/18 at 09:00 Levetiracetam (Keppra Liquid) 500 mg BID GTB Last administered on 09/08/18 08:31; Admin Dose 500 MG; Start 09/02/18 at 21:00 Albuterol (Ventolin Hfa) 2 puff Q4H RESP THERAPY PRN INH SHORTNESS OF BREATH Last administered on 09/04/18 15:03; Admin Dose 2 PUFF; Start 09/03/18 at 12:00 Vancomycin HCl (Vanco Iv Per Pharmacy) VANCOMYCIN PER PHARMACY PER PROTOCOL XX ; Start 09/03/18 at 17:00 Norepinephrine 250 ml @ 0 mls/hr TITRATE IV Last administered on 09/08/18 00:26; Admin Dose 11.25 MLS/HR; Start 09/03/18 at 20:30 Metronidazole (Flagyl) 500 mg Q8 NGT Last administered on 09/08/18 08:32; Admin Dose 500 MG; Start 09/04/18 at 14:00 Acetylcysteine (Mucomyst) 1 ml Q6H RESP THERAPY NEB Last administered on 09/08/18 08:21; Admin Dose 1 ML; Start 09/05/18 at 10:00 Levalbuterol (Xopenex Neb) 1.25 mg Q6H RESP THERAPY HHN Last administered on 09/08/18 08:21; Admin Dose 1.25 MG; Start 09/05/18 at 10:00 Ipratropium [place] (Atrovent 0.02% (Neb)) 0.5 mg Q6H RESP THERAPY HHN Last administered on 09/08/18 08:21; Admin Dose 0.5 MG; Start 09/05/18 at 10:00 Voriconazole (Vfend) 200 mg BID PO Last administered on 09/08/18 08:31; Admin Dose 200 MG; Start 09/05/18 at 21:00 Vancomycin/Sodium Chloride 250 ml @ 125 mls/hr Q36H IVPB Last administered on 09/07/18 17:44; Admin Dose 125 MLS/HR; Start 09/06/18 at 05:30 Famotidine (Pepcid) 20 mg HS GTB Last administered on 09/07/18 21:05; Admin Dose 20 MG; Start 09/06/18 at 21:00 Dextrose 1,000 ml @ 50 mls/hr Q20H IV Last administered on 09/08/18 06:17; Admin Dose 50 MLS/HR; Start 09/07/18 at 08:30 DANAY MUIR Sep 08, 2018 11:17
--- NOTE | 2018-09-08 11:58 | PN ---
DATE: 09/08/2018 SUBJECTIVE: The patient is in ICU on the ventilator support. He is awake, responsive. His blood pr essure is being maintained with Levophed at 2 mcg dosage. PHYSICAL EXAMINATION: VITAL SIGNS: Show temperature of 98.1 earlier today. The most recent blood pressure is 97/68 with a pulse rate of 112, respiration rate of 25, pulse oximetry 98% saturation. He is on 40% oxygen. NECK: Tracheal secretions are clear. No bleeding seen. The tracheal opening is large but he is abl e to maintain high enough volume through the ventilator support without any excessive air leak. HEART: Regular rhythm with sinus tachycardia. CHEST: Breath sounds are heard diminished in both lower lung tierney with a few intermittent rales an d rhonchi. ABDOMEN: Soft, no distention seen. He is tolerating tube feedings. Bowel sounds are present. EXTREMITIES: Show no edema. He is paraplegic. LABORATORY DATA: Show sodium 150, potassium 5.1, BUN down to 78, creatinine 1.64, glucose 132. Both BUN and creatinine progressively improving. The CBC shows a WBC 4900, hemoglobin 7.7, hematocrit 27 .1, platelets are decreased at 92,000. The chest x-ray taken yesterday is reported to show right nancy g base consolidation. A small left pleural effusion with associated left lung base consolidation . All of these changes seem to be chronic seen in the previous chest x-ray films. There is also a smal l right pleural effusion. Cultures show presence of yeast in the urine. MEDICATIONS: Include: 1. Cefepime. 2. Flagyl. 3. Vancomycin. IMPRESSION: 1. Septic shock. 2. Chronic ventilator dependent respiratory failure. 3. Chronic kidney disease with acute kidney injury. 4. Chronic anemia. 5. History of seizure disorder. 6. History of nephrolithiasis. 7. History of bipolar disorder. 8. Paraplegia secondary to previous spinal cord injury. 9. Multiple decubiti. PLAN: 1. Continue long-term ventilator support. 2. Continue antibiotics as per the infectious disease ergonomics consultant. 3. Continue blood pressure support with Levophed. 4. Continue tube feedings as tolerated. 5. Continue GI prophylaxis. 6. Continue DVT prophylaxis. 7. Continue wound care. 8. Continue supportive therapy. Dictated By: HUMBERTO PEREZ MD SR/QUE Conf#: [id number] [facility]#: [id number] CC: DANAY MUIR MD;*EndCC*
[2018-09-08] MEDS: FAMOTIDINE 20 MG TAB GTB SCH (21:10)
[2018-09-09] VITALS (60 sets, daily range): BP systolic 80–126; BP diastolic 50–92; PULSE 100–115; RESP 16–34
[2018-09-09] MEDS: ACETYLCYSTEINE 20% 4 ML VIAL NEB SCH ×4 (01:16→19:44)
[2018-09-09] MEDS: IPRATROPIUM (NEB) 0.5 MG/2.5 ML AMP HHN SCH ×4 (01:16→19:43)
[2018-09-09] MEDS: LEVALBUTEROL (NEB) 1.25 MG/0.5 ML AMP HHN SCH ×4 (01:16→19:43)
[2018-09-09] MEDS: DEXTROSE 5% 1,000 ML IV SCH ×3 (02:59→22:47)
[2018-09-09] MEDS: NORepinephrine 8MG/250 ML (PMX 250 ML IV SCH (03:04)
[2018-09-09] MEDS: VANCOMYCIN 750 MG (PMX) 250 ML IVPB SCH (05:32)
[2018-09-09] MEDS: metroNIDAZOLE 500 MG TAB NGT SCH ×3 (05:32→21:28)
[2018-09-09] MEDS: CEFEPIME 2GM/50 ML (PMX) 50 ML IVPB SCH (08:30)
[2018-09-09] MEDS: ZINC SULFATE 220 MG CAP GTB SCH (08:30)
[2018-09-09] MEDS: GABAPENTIN (50 MG/ML PO SYG) GTB SCH ×2 (08:30→22:36)
[2018-09-09] MEDS: VORICONAZOLE 200 MG TAB PO SCH ×2 (08:30→21:28)
[2018-09-09] MEDS: LEVETIRACETAM (100 MG/ML) 5ML CUP GTB SCH ×2 (08:30→21:27)
[2018-09-09] MEDS: ASCORBIC ACID 500 MG TAB GTB SCH (08:30)
[2018-09-09] MEDS: ENOXAPARIN 30 MG/0.3 ML SYG SC SCH (08:37)
[2018-09-09] MEDS: QUETIAPINE 25 MG TAB GTB SCH ×2 (08:45→21:28)
--- NOTE | 2018-09-09 09:35 | PN ---
Date/Time of Note Date/Time of Note DATE: 09/09/18 TIME: 09:34 Assessment/Plan VTE Prophylaxis Risk score (from [facility] [place])>0 risk: 12 SCD applied (from [facility]): No SCD contraindicated: other Pharmacological prophylaxis: LMWH Lines/Catheters IV Catheter Type (from [facility] Central Line Central line still needed: Yes Urinary Cath still in place: Yes (suprapubic) Reason Cath still needed: skin wounds contaminated by urine Assessment/Plan Hospital Course 1) sepsis - IV antibiotics 2) hypotension - secondary to #1 - give IV fluids, on vasopressors 3) respiratory failure - continue on vent 4) seizure disorder - continue keppra Patient's anemia is worsening and needs to transfuse to maintain oxygenation. Result Diagram: 09/09/18 0406 09/09/18 0406 Results 24hrs Laboratory Tests Test 09/09/18 04:06 White Blood Count 3.6 #L Red Blood Count 2.52 L Hemoglobin 7.2 L Hematocrit 25.8 L Mean Corpuscular Volume 102.4 H Mean Corpuscular Hemoglobin 28.6 L Mean Corpuscular Hemoglobin Concent 27.9 L Red Cell Distribution Width 17.7 H Platelet Count 99 L Mean Platelet Volume 13.4 H Immature Granulocytes % 0.300 Neutrophils % 64.7 Lymphocytes % 10.4 L Monocytes % 8.2 Eosinophils % 16.1 H Basophils % 0.3 Nucleated Red Blood Cells % 0.0 Immature Granulocytes # 0.010 Neutrophils # 2.3 Lymphocytes # 0.4 L Monocytes # 0.3 Eosinophils # 0.6 H Basophils # 0.0 Nucleated Red Blood Cells # 0.0 Sodium Level 148 H Potassium Level 5.2 H Chloride Level 123 H Carbon Dioxide Level 21 Anion Gap 4 L Blood Urea Nitrogen 77 H Creatinine 1.54 H Est Glomerular Filtrat Rate mL/min 50 L Glucose Level 136 Calcium Level 8.1 L Vancomycin Level Trough 17.7 Subjective 24 Hr Interval Summary Free Text/Dictation Patient more awake, need for vasopressors is improving Exam/Review of Systems Exam Vitals Vital Signs Date Temp Pulse Resp B/P (MAP) Pulse Ox O2 O2 Flow FiO2 Time Delivery Rate 09/09/18 103 24 100 40 07:48 09/09/18 103/67 06:45 (79) 09/09/18 Mechanical 06:00 Ventilator 09/09/18 97.4 04:00 Intake and Output 09/08/18 09/08/18 09/09/18 1515:00 23:00 07:00 IntakeIntake Total 1130.00 ml 1019.400 ml 846.250 ml OutputOutput Total 575 ml 685 ml 795 ml BalanceBalance 555.00 ml 334.400 ml 51.250 ml Constitutional: well developed Head: normocephalic, atraumatic Neck: supple Respiratory: diminished breath sounds Cardiovascular: regular rate and rhythm Gastrointestinal: soft, non-tender Extremities: normal pulses Results Results 24hrs Laboratory Tests Test 09/09/18 04:06 White Blood Count 3.6 #L Red Blood Count 2.52 L Hemoglobin 7.2 L Hematocrit 25.8 L Mean Corpuscular Volume 102.4 H Mean Corpuscular Hemoglobin 28.6 L Mean Corpuscular Hemoglobin Concent 27.9 L Red Cell Distribution Width 17.7 H Platelet Count 99 L Mean Platelet Volume 13.4 H Immature Granulocytes % 0.300 Neutrophils % 64.7 Lymphocytes % 10.4 L Monocytes % 8.2 Eosinophils % 16.1 H Basophils % 0.3 Nucleated Red Blood Cells % 0.0 Immature Granulocytes # 0.010 Neutrophils # 2.3 Lymphocytes # 0.4 L Monocytes # 0.3 Eosinophils # 0.6 H Basophils # 0.0 Nucleated Red Blood Cells # 0.0 Sodium Level 148 H Potassium Level 5.2 H Chloride Level 123 H Carbon Dioxide Level 21 Anion Gap 4 L Blood Urea Nitrogen 77 H Creatinine 1.54 H Est Glomerular Filtrat Rate mL/min 50 L Glucose Level 136 Calcium Level 8.1 L Vancomycin Level Trough 17.7 Medications Medication Current Medications Ondansetron HCl (Zofran Inj) 4 mg Q6H PRN IV NAUSEA AND/OR VOMITING; Start 09/02/18 at 13:30 Acetaminophen (Tylenol Liquid) 650 mg Q4H PRN GTB PAIN LEVEL 1-3 OR FEVER Last administered on 09/04/18at 21:42; Admin Dose 650 MG; Start 09/02/18 at 13:30 Morphine Sulfate (morphine) 2 mg Q4H PRN IV PAIN LEVEL 7-10 Last administered on 09/06/18at 02:36; Admin Dose 2 MG; Start 09/02/18 at 13:30 Enoxaparin Sodium (Lovenox) 30 mg DAILY SC Last administered on 09/09/18 08:37; Admin Dose 30 MG; Start 09/03/18 at 09:00 Cefepime HCl 50 ml @ 100 mls/hr Q24H IVPB Last administered on 09/09/18 08:30; Admin Dose 100 MLS/HR; Start 09/03/18 at 09:00 Ascorbic Acid (Vitamin C) 500 mg DAILY GTB Last administered on 09/09/18 08:30; Admin Dose 500 MG; Start 09/03/18 at 09:00 Diphenhydramine HCl (Benadryl) 25 mg QHS PRN GTB ITCHING; Start 09/02/18 at 13:30 Gabapentin (Neurontin Liquid) 300 mg BID GTB Last administered on 09/09/18 08:30; Admin Dose 300 MG; Start 09/02/18 at 21:00 Acetaminophen/ Hydrocodone Bitart ([place] (5/325)) 1 tab Q4H WHILE AWAKE PRN GTB SEVERE PAIN LEVEL 7-10 Last administered on 09/06/18 08:52; Admin Dose 1 TAB; Start 09/02/18 at 13:30 Quetiapine Fumarate (Seroquel) 75 mg BID GTB Last administered on 09/06/18 08:51; Admin Dose 75 MG; Start 09/02/18 at 21:00 Zinc Sulfate (Zinc Sulfate) 220 mg DAILY GTB Last administered on 09/09/18 08:30; Admin Dose 220 MG; Start 09/03/18 at 09:00 Levetiracetam (Keppra Liquid) 500 mg BID GTB Last administered on 09/09/18 08:30; Admin Dose 500 MG; Start 09/02/18 at 21:00 Albuterol (Ventolin Hfa) 2 puff Q4H RESP THERAPY PRN INH SHORTNESS OF BREATH Last administered on 09/04/18 15:03; Admin Dose 2 PUFF; Start 09/03/18 at 12:00 Vancomycin HCl (Vanco Iv Per Pharmacy) VANCOMYCIN PER PHARMACY PER PROTOCOL XX ; Start 09/03/18 at 17:00 Norepinephrine 250 ml @ 0 mls/hr TITRATE IV Last administered on 09/09/18 03:04 ; Admin Dose 3.75 MLS/HR; Start 09/03/18 at 20:30 Metronidazole (Flagyl) 500 mg Q8 NGT Last administered on 09/09/18 05:32; Admin Dose 500 MG; Start 09/04/18 at 14:00 Acetylcysteine (Mucomyst) 1 ml Q6H RESP THERAPY NEB Last administered on 09/09/18 07:53; Admin Dose 1 ML; Start 09/05/18 at 10:00 Levalbuterol (Xopenex Neb) 1.25 mg Q6H RESP THERAPY HHN Last administered on 09/09/18 07:53; Admin Dose 1.25 MG; Start 09/05/18 at 10:00 Ipratropium [place] (Atrovent 0.02% (Neb)) 0.5 mg Q6H RESP THERAPY HHN Last administered on 09/09/18 07:53; Admin Dose 0.5 MG; Start 09/05/18 at 10:00 Voriconazole (Vfend) 200 mg BID PO Last administered on 09/09/18 08:30; Admin Dose 200 MG; Start 09/05/18 at 21:00 Vancomycin/Sodium Chloride 250 ml @ 125 mls/hr Q36H IVPB Last administered on 09/09/18 05:32; Admin Dose 125 MLS/HR; Start 09/06/18 at 05:30 Famotidine (Pepcid) 20 mg HS GTB Last administered on 09/08/18 21:10; Admin Dose 20 MG; Start 09/06/18 at 21:00 Dextrose 1,000 ml @ 50 mls/hr Q20H IV Last administered on 09/09/18 02:59; Admin Dose 50 MLS/HR; Start 09/07/18 at 08:30 DANAY MUIR Sep 09, 2018 09:35
--- NOTE | 2018-09-09 16:33 | PN ---
DATE: 09/09/2018 The patient's condition is same. He is on ventilator support in ICU. PHYSICAL EXAMINATION: VITAL SIGNS: Stable. Temperature 98.1, blood pressure 97/79, pulse rate is 107, respirations 28, pu lse oximetry 100% saturation on 45% oxygen. GENERAL: He is on continuous ventilator support. HEENT: Tracheal secretions are clearing. No gross bleeding seen. HEART: Regular rhythm with sinus tachycardia. CHEST: Breath sounds are diminished in both the lower lung tierney with a few intermittent rales and rhonchi. ABDOMEN: Soft, tolerating tube feedings. Normal bowel sounds. EXTREMITIES: Show no edema. He is paraplegic. LABORATORY DATA: Show sodium 148, potassium 5.2, bicarbonate 21, BUN 77, creatinine 1.54, glucose 13 6. The CBC shows WBC 3600, hemoglobin 7.2, hematocrit 25.8, platelets 99,000. MEDICATIONS: The patient is on vancomycin, ____, metronidazole, and cefepime. IMPRESSION: 1. Septic shock. 2. Chronic ventilator dependent respiratory failure. 3. Chronic kidney disease with acute kidney injury. 4. Chronic anemia. 5. History of seizure disorder. 6. History of nephrolithiasis. 7. History of bipolar disorder. 8. Paraplegia secondary to previous spinal cord injury. 9. Multiple decubiti. PLAN: 1. Continue long-term ventilator support. 2. Continue antibiotics as recommended by the infectious disease java developer consultant. 3. Stabilize the blood pressure with vasopressor drugs as needed. 4. Continue tube feedings as tolerated. 5. Continue GI prophylaxis. 6. Continue DVT prophylaxis. 7. Continue wound care. 8. Continue supportive therapy. Dictated By: HUMBERTO PEREZ MD SR/NTS Conf#: [id number] DID#: [id number] CC: DANAY MUIR MD;*EndCC*
--- NOTE | 2018-09-09 18:34 | CONS ---
Assessment/Plan Assessment/Plan Hospital Course (Demo Recall) ID PROGRESS NOTE CURRENT ABX: DAY # =>Vanco IV + Cefepime + Flagyl + Vfend 24H INTERVAL SUMMARY * Minimally responsive, otherwise lethargic -- Weaning Levophed -- Trach with copious secretions * Suprapubic cath growing YEAST * Diarrhea resolved -- Leukocytosis resolved -- low grade temps DIAGNOSTIC IMAGING * 09/07/18 CXR: IMPRESSION:There is right lung base consolidation. There is a small left pleural effusion with associated left lung base consolidation. There are increased interstitial markings.There is a small layering right pleural effusion. Follow-up to resolution to exclude underlying neoplasm. MICRO * URINE CULTURE Preliminary Organism 1 YEAST COLONY COUNT >100,000 CFU/ml * 09/03/18 BCx (-) * 09/02/18 BCx (-) * 08/28/18 URINE CX (+) URINE CULTURE Final Organism 1 VANCO RESISTANT ENTEROCOCCUS COLONY COUNT 30,000 - 40,000 CFU/ml . MULTI DRUG RESISTANT ORGANISM * 08/24/18 URINE CULTURE URINE CULTURE Preliminary Organism 1 PSEUDOMONAS SPECIES COLONY COUNT 50,000 - 60,000 CFU/ml Organism 2 PROVIDENCIA STUARTII COLONY COUNT 20,000 - 30,000 CFU/ml * 08/16/18 BCx (-) * 08/16/18 Urine Cx: URINE CULTURE Final Organism 1 ALONA SPECIES, NOT ALBICANS COLONY COUNT >100,000 CFU/ml PHYSICAL EXAMINATION: GENERAL: VSS, NAD HEENT: AT, NC, NECK: Trach with copious secretions CHEST: Rise symmetrical HEART: Pulse RRR ABDOMEN: Benign EXTREMITIES: Warm, dry SKIN: No rash, no diaphoresis ID ASSESSMENT 43 yo M w/quadriplegia, neurogenic bladder w/suprapubic catheter, contracted extremities admit with: 1. Septic shock due to UTI and questionable HCAP 2. Recurrent UTI==> yeast, poss colonized 3. Chronic respiratory failure * Large tracheal opening, s/p evaluation by Dr Woodruff in ENT consultation with recommendation for free flap closure. Patient was evaluated at [facility] refused to have surgery, not cooperative with care. 4. S/P Diarrhea -- ABX associated 5. Acute on chronic kidney disease 6. Pancytopenia 7. History of left nephrectomy 8. Multiple chronic decubitus ulcers 10. Anemia (-)MRSA Nares this admission ABX ALLERGIES: KNDA INVASIVES: PIV CURRENT ABX: DAY # =>Vanco IV + Cefepime + Flagyl + Vfend ID RECOMMENDATIONS/PLAN: 1. Continue current ABX over the weekend -- weaning pressors. . Consultation Date/Type/Reason Admit Date/Time Sep 02, 2018 at 16:44 Initial Consult Date Date/Time of Note DATE: 09/09/18 TIME: 18:34 Exam/Review of Systems Exam Vitals Vital Signs Date Temp Pulse Resp B/P (MAP) Pulse Ox O2 O2 Flow FiO2 Time Delivery Rate 09/09/18 100 29 99 40 17:07 09/09/18 97.9 102/73 16:00 (83) 09/09/18 Mechanical 07:00 Ventilator Intake and Output 09/08/18 09/08/18 09/09/18 1515:00 23:00 07:00 IntakeIntake Total 1130.00 ml 1019.400 ml 906.250 ml OutputOutput Total 575 ml 685 ml 895 ml BalanceBalance 555.00 ml 334.400 ml 11.250 ml Results Result Diagram: 09/09/18 0406 09/09/18 0406 Results 24hrs Laboratory Tests Test 09/09/18 04:06 White Blood Count 3.6 #L Red Blood Count 2.52 L Hemoglobin 7.2 L Hematocrit 25.8 L Mean Corpuscular Volume 102.4 H Mean Corpuscular Hemoglobin 28.6 L Mean Corpuscular Hemoglobin Concent 27.9 L Red Cell Distribution Width 17.7 H Platelet Count 99 L Mean Platelet Volume 13.4 H Immature Granulocytes % 0.300 Neutrophils % 64.7 Lymphocytes % 10.4 L Monocytes % 8.2 Eosinophils % 16.1 H Basophils % 0.3 Nucleated Red Blood Cells % 0.0 Immature Granulocytes # 0.010 Neutrophils # 2.3 Lymphocytes # 0.4 L Monocytes # 0.3 Eosinophils # 0.6 H Basophils # 0.0 Nucleated Red Blood Cells # 0.0 Sodium Level 148 H Potassium Level 5.2 H Chloride Level 123 H Carbon Dioxide Level 21 Anion Gap 4 L Blood Urea Nitrogen 77 H Creatinine 1.54 H Est Glomerular Filtrat Rate mL/min 50 L Glucose Level 136 Calcium Level 8.1 L Vancomycin Level Trough 17.7 Medications Medication Current Medications Ondansetron HCl (Zofran Inj) 4 mg Q6H PRN IV NAUSEA AND/OR VOMITING; Start 09/02/18 at 13:30 Acetaminophen (Tylenol Liquid) 650 mg Q4H PRN GTB PAIN LEVEL 1-3 OR FEVER Last administered on 09/04/18 21:42; Admin Dose 650 MG; Start 09/02/18 at 13:30 Morphine Sulfate (morphine) 2 mg Q4H PRN IV PAIN LEVEL 7-10 Last administered on 09/06/18 02:36; Admin Dose 2 MG; Start 09/02/18 at 13:30 Enoxaparin Sodium (Lovenox) 30 mg DAILY SC Last administered on 09/09/18 08:37; Admin Dose 30 MG; Start 09/03/18 at 09:00 Cefepime HCl 50 ml @ 100 mls/hr Q24H IVPB Last administered on 09/09/18 08:30; Admin Dose 100 MLS/HR; Start 09/03/18 at 09:00 Ascorbic Acid (Vitamin C) 500 mg DAILY GTB Last administered on 09/09/18 08:30; Admin Dose 500 MG; Start 09/03/18 at 09:00 Diphenhydramine HCl (Benadryl) 25 mg QHS PRN GTB ITCHING; Start 09/02/18 at 13:30 Gabapentin (Neurontin Liquid) 300 mg BID GTB Last administered on 09/09/18 08:30; Admin Dose 300 MG; Start 09/02/18 at 21:00 Acetaminophen/ Hydrocodone Bitart ([place] (5/325)) 1 tab Q4H WHILE AWAKE PRN GTB SEVERE PAIN LEVEL 7-10 Last administered on 09/06/18 08:52; Admin Dose 1 TAB; Start 09/02/18 at 13:30 Quetiapine Fumarate (Seroquel) 75 mg BID GTB Last administered on 09/06/18 08:51; Admin Dose 75 MG; Start 09/02/18 at 21:00 Zinc Sulfate (Zinc Sulfate) 220 mg DAILY GTB Last administered on 09/09/18 08:30; Admin Dose 220 MG; Start 09/03/18 at 09:00 Levetiracetam (Keppra Liquid) 500 mg BID GTB Last administered on 09/09/18 08:30; Admin Dose 500 MG; Start 09/02/18 at 21:00 Albuterol (Ventolin Hfa) 2 puff Q4H RESP THERAPY PRN INH SHORTNESS OF BREATH Last administered on 09/04/18 15:03; Admin Dose 2 PUFF; Start 09/03/18 at 12:00 Vancomycin HCl (Vanco Iv Per Pharmacy) VANCOMYCIN PER PHARMACY PER PROTOCOL XX ; Start 09/03/18 at 17:00 Metronidazole (Flagyl) 500 mg Q8 NGT Last administered on 09/09/18 14:24; Admin Dose 500 MG; Start 09/04/18 at 14:00 Acetylcysteine (Mucomyst) 1 ml Q6H RESP THERAPY NEB Last administered on 09/09/18 14:11; Admin Dose 1 ML; Start 09/05/18 at 10:00 Levalbuterol (Xopenex Neb) 1.25 mg Q6H RESP THERAPY HHN Last administered on 09/09/18 14:11; Admin Dose 1.25 MG; Start 09/05/18 at 10:00 Ipratropium [place] (Atrovent 0.02% (Neb)) 0.5 mg Q6H RESP THERAPY HHN Last administered on 09/09/18 14:11; Admin Dose 0.5 MG; Start 09/05/18 at 10:00 Voriconazole (Vfend) 200 mg BID PO Last administered on 09/09/18 08:30; Admin Dose 200 MG; Start 09/05/18 at 21:00 Vancomycin/Sodium Chloride 250 ml @ 125 mls/hr Q36H IVPB Last administered on 09/09/18 05:32; Admin Dose 125 MLS/HR; Start 09/06/18 at 05:30 Famotidine (Pepcid) 20 mg HS GTB Last administered on 09/08/18 21:10; Admin Dose 20 MG; Start 09/06/18 at 21:00 Dextrose 1,000 ml @ 50 mls/hr Q20H IV Last administered on 09/09/18 02:59; Admin Dose 50 MLS/HR; Start 09/07/18 at 08:30 KELSI CERDA NP Sep 09, 2018 18:34
[2018-09-09] MEDS: FAMOTIDINE 20 MG TAB GTB SCH (21:27)
[2018-09-10] VITALS (20 sets, daily range): BP systolic 65–120; BP diastolic 39–93; PULSE 88–102; RESP 15–31
[2018-09-10] MEDS ORDERED: LEVALBUTEROL (HFA) 15 GM INHALER INH SCH (02:00)
[2018-09-10] MEDS ORDERED: IPRATROPIUM (HFA) 12.9 GM INHALER INH SCH (02:00)
[2018-09-10] MEDS: ACETYLCYSTEINE 20% 4 ML VIAL NEB SCH ×4 (02:00→19:28)
[2018-09-10] MEDS: metroNIDAZOLE 500 MG TAB NGT SCH ×3 (06:07→21:03)
[2018-09-10] MEDS: ZINC SULFATE 220 MG CAP GTB SCH (08:34)
[2018-09-10] MEDS: LEVETIRACETAM (100 MG/ML) 5ML CUP GTB SCH ×2 (08:34→20:53)
[2018-09-10] MEDS: GABAPENTIN (50 MG/ML PO SYG) GTB SCH ×2 (08:36→20:53)
[2018-09-10] MEDS: QUETIAPINE 25 MG TAB GTB SCH ×2 (08:37→20:53)
[2018-09-10] MEDS: VORICONAZOLE 200 MG TAB PO SCH ×2 (08:37→20:53)
[2018-09-10] MEDS: CEFEPIME 2GM/50 ML (PMX) 50 ML IVPB SCH (08:37)
[2018-09-10] MEDS: ASCORBIC ACID 500 MG TAB GTB SCH (08:37)
[2018-09-10] MEDS: ENOXAPARIN 30 MG/0.3 ML SYG SC SCH (09:08)
--- NOTE | 2018-09-10 10:31 | PN ---
DATE: 09/10/2018 SUBJECTIVE: The patient is in the medical floor now with telemetry monitoring. He is on ventilator support for long-term. His breathing appears comfortable, synchronized with the ventilator. He is a wake, responsive, but his cooperation is suboptimal. PHYSICAL EXAMINATION: VITAL SIGNS: Show temperature 97.2, blood pressure 114/93, pulse rate 88, respirations 15, respirati ons 20, pulse oximetry 100% saturation. He is on 40% oxygen. NECK: Tracheal opening is large, but tracheostomy is working well. No evidence of leak. Secretions are decreasing, clearing. No bleeding seen. HEART: Regular sinus rhythm. CHEST: Breath sounds are heard bilaterally, diminished in both the lower lung [place] with intermitte nt rales and rhonchi. Auscultation is difficult due to patient's noncooperation. ABDOMEN: Soft, no distention seen, tolerating G-tube feedings. Bowel sounds are present. EXTREMITIES: Show no edema. He is paraplegic. LABORATORY DATA: No lab results from today. MEDICATIONS: Include: 1. Xopenex inhalation. 2. Atrovent inhalation. 3. Pepcid. 4. Vancomycin. 5. ____. 6. Mucomyst inhalation. 7. Metronidazole. 8. Enoxaparin. 9. Cefepime. 10. Ascorbic acid. 11. Zinc sulfate. 12. Gabapentin. 13. Seroquel. 14. Keppra. 15. Zofran as needed. 16. Morphine as needed. 17. Tylenol as needed. 18. Hydrocodone as needed. IMPRESSION: 1. Status post septic shock. 2. Chronic ventilator dependent respiratory failure. 3. Chronic kidney disease with acute kidney injury, gradually improving. 4. Chronic anemia. 5. History of seizure disorder. 6. History of nephrolithiasis. 7. History of bipolar disorder. 8. Paraplegia secondary to previous spinal cord injury. 9. Multiple decubiti. PLAN: 1. Continue long-term ventilator support. 2. Continue antibiotics as recommended by the infectious disease crm consultant. 3. Stabilize him. 4. Continue tube feedings as tolerated. 5. Continue GI prophylaxis. 6. Continue DVT prophylaxis. 7. Continue wound care. 8. Continue supportive therapy. Dictated By: HUMBERTO PEREZ MD, SR/QUE Conf#: [id number] [facility]#: [id number]
--- NOTE | 2018-09-10 12:59 | PN ---
Date/Time of Note Date/Time of Note DATE: 09/10/18 TIME: 12:58 Assessment/Plan VTE Prophylaxis Risk score (from Ns)>0 risk: 8 SCD applied (from Ns): Yes Pharmacological prophylaxis: LMWH Lines/Catheters IV Catheter Type (from Nrsg): Central Line Central line still needed: Yes Urinary Cath still in place: Yes Reason Cath still needed: skin wounds contaminated by urine Assessment/Plan Hospital Course 1) sepsis - IV antibiotics 2) hypotension - secondary to #1 - give IV fluids, on vasopressors 3) respiratory failure - continue on vent 4) seizure disorder - continue keppra Patient's anemia is worsening and needs to transfuse to maintain oxygenation. Result Diagram: 09/09/18 0406 09/09/18 0406 Subjective 24 Hr Interval Summary Free Text/Dictation Patient awake, has no complaints Exam/Review of Systems Exam Vitals Vital Signs Date Temp Pulse Resp B/P (MAP) Pulse Ox O2 O2 Flow FiO2 Time Delivery Rate 09/10/18 97.6 89 17 120/93 97 11:16 (102) 09/10/18 40 11:10 09/10/18 Mechanical 03:52 Ventilator Intake and Output 09/09/18 09/09/18 09/10/18 1515:00 23:00 07:00 IntakeIntake Total 980 ml 1260 ml 500 ml OutputOutput Total 800 ml 645 ml 1690 ml BalanceBalance 180 ml 615 ml -1190 ml Constitutional: well developed Head: normocephalic, atraumatic Neck: supple Respiratory: diminished breath sounds Cardiovascular: regular rate and rhythm Gastrointestinal: soft, non-tender Extremities: normal pulses Medications Medication Current Medications Ondansetron HCl (Zofran Inj) 4 mg Q6H PRN IV NAUSEA AND/OR VOMITING; Start 09/02/18 at 13:30 Acetaminophen (Tylenol Liquid) 650 mg Q4H PRN GTB PAIN LEVEL 1-3 OR FEVER Last administered on 09/04/18at 21:42; Admin Dose 650 MG; Start 09/02/18 at 13:30 Morphine Sulfate (morphine) 2 mg Q4H PRN IV PAIN LEVEL 7-10 Last administered on 09/06/18at 02:36; Admin Dose 2 MG; Start 09/02/18 at 13:30 Enoxaparin Sodium (Lovenox) 30 mg DAILY SC Last administered on 09/10/18 09:08; Admin Dose 30 MG; Start 09/03/18 at 09:00 Cefepime HCl 50 ml @ 100 mls/hr Q24H IVPB Last administered on 09/10/18 08:37; Admin Dose 100 MLS/HR; Start 09/03/18 at 09:00 Ascorbic Acid (Vitamin C) 500 mg DAILY GTB Last administered on 09/10/18 08:37; Admin Dose 500 MG; Start 09/03/18 at 09:00 Diphenhydramine HCl (Benadryl) 25 mg QHS PRN GTB ITCHING; Start 09/02/18 at 13:30 Gabapentin (Neurontin Liquid) 300 mg BID GTB Last administered on 09/10/18 0 8:36; Admin Dose 300 MG; Start 09/02/18 at 21:00 Acetaminophen/ Hydrocodone Bitart ([place] (5/325)) 1 tab Q4H WHILE AWAKE PRN GTB SEVERE PAIN LEVEL 7-10 Last administered on 09/06/18 08:52; Admin Dose 1 TAB; Start 09/02/18 at 13:30 Quetiapine Fumarate (Seroquel) 75 mg BID GTB Last administered on 09/10/18 08:37; Admin Dose 75 MG; Start 09/02/18 at 21:00 Zinc Sulfate (Zinc Sulfate) 220 mg DAILY GTB Last administered on 09/10/18 08:34; Admin Dose 220 MG; Start 09/03/18 at 09:00 Levetiracetam (Keppra Liquid) 500 mg BID GTB Last administered on 09/10/18 08:34; Admin Dose 500 MG; Start 09/02/18 at 21:00 Albuterol (Ventolin Hfa) 2 puff Q4H RESP THERAPY PRN INH SHORTNESS OF BREATH Last administered on 09/04/18 15:03; Admin Dose 2 PUFF; Start 09/03/18 at 12:00 Vancomycin HCl (Vanco Iv Per Pharmacy) VANCOMYCIN PER PHARMACY PER PROTOCOL XX ; Start 09/03/18 at 17:00 Metronidazole (Flagyl) 500 mg Q8 NGT Last administered on 09/10/18 06:07; Admin Dose 500 MG; Start 09/04/18 at 14:00 Acetylcysteine (Mucomyst) 1 ml Q6H RESP THERAPY NEB Last administered on 09/10/18at 09:18; Admin Dose 1 ML; Start 09/05/18 at 10:00 Voriconazole (Vfend) 200 mg BID PO Last administered on 09/10/18at 08:37; Admin Dose 200 MG; Start 09/05/18 at 21:00 Vancomycin/Sodium Chloride 250 ml @ 125 mls/hr Q36H IVPB Last administered on 09/09/18at 05:32; Admin Dose 125 MLS/HR; Start 09/06/18 at 05:30 Famotidine (Pepcid) 20 mg HS GTB Last administered on 09/09/18at 21:27; Admin Dose 20 MG; Start 09/06/18 at 21:00 Levalbuterol (Xopenex Neb) 0.63 mg Q6H RESP THERAPY HHN ; Start 09/10/18 at 14:00 Ipratropium [place] (Atrovent 0.02% (Neb)) 0.5 mg Q6H RESP THERAPY HHN ; Start 09/10/18 at 14:00 DANAY MUIR Sep 10, 2018 12:59
[2018-09-10] MEDS: IPRATROPIUM (NEB) 0.5 MG/2.5 ML AMP HHN SCH ×2 (14:16→19:20)
[2018-09-10] MEDS: LEVALBUTEROL (NEB) 0.63 MG/3 ML AMP HHN SCH ×2 (14:16→19:28)
--- NOTE | 2018-09-10 15:39 | CONS ---
Assessment/Plan Assessment/Plan Hospital Course (Demo Recall) SUBJECTIVE: No acute changes patient is awake looks comfortable no fevers overnight MICROBIOLOGY: Blood cultures remain negative. Urine culture growing yeast. Stool for C. difficile came back negative ANTIMICROBIALS: He is on vancomycin, Vfend, Flagyl and cefepime. INDWELLINGS: Trach, PEG, rectal tube and suprapubic catheter. PHYSICAL EXAMINATION: GENERAL: This is a chronically ill-appearing, wasted, middle-aged man who is in no distress. HEENT: Head atraumatic, normocephalic. NECK: Supple. Tracheostomy present. CHEST: Rise symmetrical. Breath sounds diminished to bases. HEART: S1, S2. ABDOMEN: Soft, bowel sounds hypoactive. EXTREMITIES: Contractured. ASSESSMENT: 1. Severe sepsis with shock. 2. Ongoing diarrhea, rule out Clostridium difficile colitis. 3. Recurrent urinary tract infection. 4. Questionable pneumonia. 5. Quadriplegia. 6. Chronic kidney disease status post nephrectomy. 7. ALLERGIES: Tetracyclines. PLAN: Stable, continue Vfend DC other antibiotics Consultation Date/Type/Reason Admit Date/Time Sep 02, 2018 at 16:44 Initial Consult Date Type of Consult id Date/Time of Note DATE: 09/10/18 TIME: 15:38 Exam/Review of Systems Exam Vitals Vital Signs Date Temp Pulse Resp B/P (MAP) Pulse Ox O2 O2 Flow FiO2 Time Delivery Rate 09/10/18 97.9 92 15 97/78 (84) 100 15:25 09/10/18 40 13:50 09/10/18 Mechanical 03:52 Ventilator Intake and Output 09/09/18 09/09/18 09/10/18 1414:59 22:59 06:59 IntakeIntake Total 930 ml 1260 ml 610 ml OutputOutput Total 800 ml 655 ml 1780 ml BalanceBalance 130 ml 605 ml -1170 ml Results Result Diagram: 09/09/18 0406 09/09/18 0406 Medications Medication Current Medications Ondansetron HCl (Zofran Inj) 4 mg Q6H PRN IV NAUSEA AND/OR VOMITING; Start 09/02/18 at 13:30 Acetaminophen (Tylenol Liquid) 650 mg Q4H PRN GTB PAIN LEVEL 1-3 OR FEVER Last administered on 09/04/18at 21:42; Admin Dose 650 MG; Start 09/02/18 at 13:30 Morphine Sulfate (morphine) 2 mg Q4H PRN IV PAIN LEVEL 7-10 Last administered on 09/06/18 02:36; Admin Dose 2 MG; Start 09/02/18 at 13:30 Enoxaparin Sodium (Lovenox) 30 mg DAILY SC Last administered on 09/10/18 09:08; Admin Dose 30 MG; Start 09/03/18 at 09:00 Cefepime HCl 50 ml @ 100 mls/hr Q24H IVPB Last administered on 09/10/18 08:37; Admin Dose 100 MLS/HR; Start 09/03/18 at 09:00 Ascorbic Acid (Vitamin C) 500 mg DAILY GTB Last administered on 09/10/18 08:37; Admin Dose 500 MG; Start 09/03/18 at 09:00 Diphenhydramine HCl (Benadryl) 25 mg QHS PRN GTB ITCHING; Start 09/02/18 at 13:30 Gabapentin (Neurontin Liquid) 300 mg BID GTB Last administered on 09/10/18 08:36; Admin Dose 300 MG; Start 09/02/18 at 21:00 Acetaminophen/ Hydrocodone Bitart ([place] (5/325)) 1 tab Q4H WHILE AWAKE PRN GTB SEVERE PAIN LEVEL 7-10 Last administered on 09/06/18 08:52; Admin Dose 1 TAB; Start 09/02/18 at 13:30 Quetiapine Fumarate (Seroquel) 75 mg BID GTB Last administered on 09/10/18 08:37; Admin Dose 75 MG; Start 09/02/18 at 21:00 Zinc Sulfate (Zinc Sulfate) 220 mg DAILY GTB Last administered on 09/10/18 0 8:34; Admin Dose 220 MG; Start 09/03/18 at 09:00 Levetiracetam (Keppra Liquid) 500 mg BID GTB Last administered on 09/10/18 08:34; Admin Dose 500 MG; Start 09/02/18 at 21:00 Albuterol (Ventolin Hfa) 2 puff Q4H RESP THERAPY PRN INH SHORTNESS OF BREATH Last administered on 09/04/18 15:03; Admin Dose 2 PUFF; Start 09/03/18 at 12:00 Vancomycin HCl (Vanco Iv Per Pharmacy) VANCOMYCIN PER PHARMACY PER PROTOCOL XX ; Start 09/03/18 at 17:00 Metronidazole (Flagyl) 500 mg Q8 NGT Last administered on 09/10/18 13:16; Admin Dose 500 MG; Start 09/04/18 at 14:00 Acetylcysteine (Mucomyst) 1 ml Q6H RESP THERAPY NEB Last administered on 09/10/18 14:16; Admin Dose 1 ML; Start 09/05/18 at 10:00 Voriconazole (Vfend) 200 mg BID PO Last administered on 09/10/18 08:37; Admin Dose 200 MG; Start 09/05/18 at 21:00 Vancomycin/Sodium Chloride 250 ml @ 125 mls/hr Q36H IVPB Last administered on 09/09/18 05:32; Admin Dose 125 MLS/HR; Start 09/06/18 at 05:30 Famotidine (Pepcid) 20 mg HS GTB Last administered on 09/09/18 21:27; Admin Dose 20 MG; Start 09/06/18 at 21:00 Levalbuterol (Xopenex Neb) 0.63 mg Q6H RESP THERAPY HHN Last administered on 09/10/18 14:16; Admin Dose 0.63 MG; Start 09/10/18 at 14:00 Ipratropium [place] (Atrovent 0.02% (Neb)) 0.5 mg Q6H RESP THERAPY HHN Last administered on 09/10/18 14:16; Admin Dose 0.5 MG; Start 09/10/18 at 14:00 REGINALDO BOND NP Sep 10, 2018 15:38
[2018-09-10] MEDS: FAMOTIDINE 20 MG TAB GTB SCH (20:53)
[2018-09-11] VITALS (16 sets, daily range): BP systolic 98–127; BP diastolic 77–99; PULSE 96–99; RESP 16–32; Ht 167.6 cm; Wt 58.6 kg
[2018-09-11] MEDS: IPRATROPIUM (NEB) 0.5 MG/2.5 ML AMP HHN SCH ×4 (01:09→19:11)
[2018-09-11] MEDS: LEVALBUTEROL (NEB) 0.63 MG/3 ML AMP HHN SCH ×4 (01:09→19:11)
[2018-09-11] MEDS: ACETYLCYSTEINE 20% 4 ML VIAL NEB SCH ×4 (01:19→19:11)
[2018-09-11] MEDS: metroNIDAZOLE 500 MG TAB NGT SCH ×3 (06:06→21:05)
[2018-09-11] MEDS: ENOXAPARIN 30 MG/0.3 ML SYG SC SCH (08:45)
[2018-09-11] MEDS: VORICONAZOLE 200 MG TAB PO SCH (08:54)
[2018-09-11] MEDS: GABAPENTIN (50 MG/ML PO SYG) GTB SCH ×2 (08:55→20:50)
[2018-09-11] MEDS: ASCORBIC ACID 500 MG TAB GTB SCH (08:55)
[2018-09-11] MEDS: QUETIAPINE 25 MG TAB GTB SCH ×2 (08:55→20:50)
[2018-09-11] MEDS: LEVETIRACETAM (100 MG/ML) 5ML CUP GTB SCH ×2 (08:55→20:50)
[2018-09-11] MEDS: ZINC SULFATE 220 MG CAP GTB SCH (08:55)
--- NOTE | 2018-09-11 11:58 | CONS ---
Assessment/Plan Assessment/Plan Hospital Course (Demo Recall) SUBJECTIVE: No acute changes looks comfortable no fevers overnight MICROBIOLOGY: Blood cultures remain negative. Urine culture growing yeast. Stool for C. difficile came back negative ANTIMICROBIALS: Vfend, Flagyl INDWELLINGS: Trach, PEG, rectal tube and suprapubic catheter. PHYSICAL EXAMINATION: GENERAL: This is a chronically ill-appearing, wasted, middle-aged man who is in no distress. HEENT: Head atraumatic, normocephalic. NECK: Supple. Tracheostomy present. CHEST: Rise symmetrical. Breath sounds diminished to bases. HEART: S1, S2. ABDOMEN: Soft, bowel sounds hypoactive. EXTREMITIES: Contractured. ASSESSMENT: 1. S/p severe sepsis with shock. 2. Ongoing diarrhea, rule out Clostridium difficile colitis. 3. Recurrent urinary tract infection. 4. Questionable pneumonia. 5. Quadriplegia. 6. Chronic kidney disease status post nephrectomy. 7. ALLERGIES: Tetracyclines. PLAN: Stable, continue antibiotics Consultation Date/Type/Reason Admit Date/Time Sep 02, 2018 at 16:44 Initial Consult Date Type of Consult id Date/Time of Note DATE: 09/11/18 TIME: 11:57 Exam/Review of Systems Exam Vitals Vital Signs Date Temp Pulse Resp B/P (MAP) Pulse Ox O2 O2 Flow FiO2 Time Delivery Rate 09/11/18 98.6 99 18 109/77 98 11:35 (88) 09/11/18 40 08:00 09/10/18 Mechanical 23:10 Ventilator Intake and Output 09/10/18 09/10/18 09/11/18 1515:00 23:00 07:00 IntakeIntake Total 125 ml 960 ml OutputOutput Total 1000 ml 400 ml 1500 ml BalanceBalance -875 ml -400 ml -540 ml Results Result Diagram: 09/09/18 0406 09/11/18 0601 Results 24hrs Laboratory Tests Test 09/11/18 06:01 Blood Urea Nitrogen 67 H Creatinine 1.29 H Medications Medication Current Medications Ondansetron HCl (Zofran Inj) 4 mg Q6H PRN IV NAUSEA AND/OR VOMITING; Start 09/02/18 at 13:30 Acetaminophen (Tylenol Liquid) 650 mg Q4H PRN GTB PAIN LEVEL 1-3 OR FEVER Last administered on 09/04/18at 21:42; Admin Dose 650 MG; Start 09/02/18 at 13:30 Morphine Sulfate (morphine) 2 mg Q4H PRN IV PAIN LEVEL 7-10 Last administered on 09/06/18 02:36; Admin Dose 2 MG; Start 09/02/18 at 13:30 Enoxaparin Sodium (Lovenox) 30 mg DAILY SC Last administered on 09/10/18 09:08; Admin Dose 30 MG; Start 09/03/18 at 09:00 Ascorbic Acid (Vitamin C) 500 mg DAILY GTB Last administered on 09/11/18 08:55; Admin Dose 500 MG; Start 09/03/18 at 09:00 Diphenhydramine HCl (Benadryl) 25 mg QHS PRN GTB ITCHING; Start 09/02/18 at 13:30 Gabapentin (Neurontin Liquid) 300 mg BID GTB Last administered on 09/11/18 08:55; Admin Dose 300 MG; Start 09/02/18 at 21:00 Acetaminophen/ Hydrocodone Bitart ([place] (5/325)) 1 tab Q4H WHILE AWAKE PRN GTB SEVERE PAIN LEVEL 7-10 Last administered on 09/06/18 08:52; Admin Dose 1 TAB; Start 09/02/18 at 13:30 Quetiapine Fumarate (Seroquel) 75 mg BID GTB Last administered on 09/11/18 08:55; Admin Dose 75 MG; Start 09/02/18 at 21:00 Zinc Sulfate (Zinc Sulfate) 220 mg DAILY GTB Last administered on 09/11/18 08:55; Admin Dose 220 MG; Start 09/03/18 at 09:00 Levetiracetam (Keppra Liquid) 500 mg BID GTB Last administered on 09/11/18 08:55; Admin Dose 500 MG; Start 09/02/18 at 21:00 Albuterol (Ventolin Hfa) 2 puff Q4H RESP THERAPY PRN INH SHORTNESS OF BREATH Last administered on 09/04/18 15:03; Admin Dose 2 PUFF; Start 09/03/18 at 12:00 Metronidazole (Flagyl) 500 mg Q8 NGT Last administered on 09/11/18 06:06; Admin Dose 500 MG; Start 09/04/18 at 14:00 Acetylcysteine (Mucomyst) 1 ml Q6H RESP THERAPY NEB Last administered on 09/11/18 07:28; Admin Dose 1 ML; Start 09/05/18 at 10:00 Voriconazole (Vfend) 200 mg BID PO Last administered on 09/11/18 08:54; Admin Dose 200 MG; Start 09/05/18 at 21:00 Famotidine (Pepcid) 20 mg HS GTB Last administered on 09/10/18 20:53; Admin Dose 20 MG; Start 09/06/18 at 21:00 Levalbuterol (Xopenex Neb) 0.63 mg Q6H RESP THERAPY HHN Last administered on 09/11/18 07:28; Admin Dose 0.63 MG; Start 09/10/18 at 14:00 Ipratropium [place] (Atrovent 0.02% (Neb)) 0.5 mg Q6H RESP THERAPY HHN Last administered on 09/11/18 07:28; Admin Dose 0.5 MG; Start 09/10/18 at 14:00 REGINALDO BOND NP Sep 11, 2018 11:58
[2018-09-11] MEDS: morphine 2 MG INJ IV PRN (13:08)
--- NOTE | 2018-09-11 13:59 | PN ---
Date/Time of Note Date/Time of Note DATE: 09/11/18 TIME: 13:58 Assessment/Plan VTE Prophylaxis Risk score (from Ns)>0 risk: 8 SCD applied (from Ns): Yes Pharmacological prophylaxis: LMWH Lines/Catheters IV Catheter Type (from Nrsg): Central Line Central line still needed: Yes Urinary Cath still in place: Yes Reason Cath still needed: skin wounds contaminated by urine Assessment/Plan Hospital Course 1) sepsis - IV antibiotics 2) hypotension - secondary to #1 - give IV fluids, on vasopressors 3) respiratory failure - continue on vent 4) seizure disorder - continue keppra Patient's anemia is worsening and needs to transfuse to maintain oxygenation. Result Diagram: 09/09/18 0406 09/11/18 0601 Results 24hrs Laboratory Tests Test 09/11/18 06:01 Blood Urea Nitrogen 67 H Creatinine 1.29 H Subjective 24 Hr Interval Summary Free Text/Dictation Patient appears comfortable Exam/Review of Systems Exam Vitals Vital Signs Date Temp Pulse Resp B/P (MAP) Pulse Ox O2 O2 Flow FiO2 Time Delivery Rate 09/11/18 98.6 99 18 109/77 98 11:35 (88) 09/11/18 40 08:00 09/10/18 Mechanical 23:10 Ventilator Intake and Output 09/10/18 09/10/18 09/11/18 1515:00 23:00 07:00 IntakeIntake Total 125 ml 960 ml OutputOutput Total 1000 ml 400 ml 1500 ml BalanceBalance -875 ml -400 ml -540 ml Constitutional: well developed Head: normocephalic, atraumatic Neck: supple Respiratory: diminished breath sounds Cardiovascular: regular rate and rhythm Gastrointestinal: soft, non-tender Extremities: normal pulses Results Results 24hrs Laboratory Tests Test 09/11/18 06:01 Blood Urea Nitrogen 67 H Creatinine 1.29 H Medications Medication Current Medications Ondansetron HCl (Zofran Inj) 4 mg Q6H PRN IV NAUSEA AND/OR VOMITING; Start 09/02/18 at 13:30 Acetaminophen (Tylenol Liquid) 650 mg Q4H PRN GTB PAIN LEVEL 1-3 OR FEVER Last administered on 09/04/18at 21:42; Admin Dose 650 MG; Start 09/02/18 at 13:30 Morphine Sulfate (morphine) 2 mg Q4H PRN IV PAIN LEVEL 7-10 Last administered on 09/11/18 13:08; Admin Dose 2 MG; Start 09/02/18 at 13:30 Enoxaparin Sodium (Lovenox) 30 mg DAILY SC Last administered on 09/10/18 09:08; Admin Dose 30 MG; Start 09/03/18 at 09:00 Ascorbic Acid (Vitamin C) 500 mg DAILY GTB Last administered on 09/11/18 08:55; Admin Dose 500 MG; Start 09/03/18 at 09:00 Diphenhydramine HCl (Benadryl) 25 mg QHS PRN GTB ITCHING; Start 09/02/18 at 13:30 Gabapentin (Neurontin Liquid) 300 mg BID GTB Last administered on 09/11/18 08:55; Admin Dose 300 MG; Start 09/02/18 at 21:00 Acetaminophen/ Hydrocodone Bitart ([place] (5/325)) 1 tab Q4H WHILE AWAKE PRN GTB SEVERE PAIN LEVEL 7-10 Last administered on 09/06/18 08:52; Admin Dose 1 TAB; Start 09/02/18 at 13:30 Quetiapine Fumarate (Seroquel) 75 mg BID GTB Last administered on 09/11/18 08:55; Admin Dose 75 MG; Start 09/02/18 at 21:00 Zinc Sulfate (Zinc Sulfate) 220 mg DAILY GTB Last administered on 09/11/18 08:55; Admin Dose 220 MG; Start 09/03/18 at 09:00 Levetiracetam (Keppra Liquid) 500 mg BID GTB Last administered on 09/11/18 08:55; Admin Dose 500 MG; Start 09/02/18 at 21:00 Albuterol (Ventolin Hfa) 2 puff Q4H RESP THERAPY PRN INH SHORTNESS OF BREATH Last administered on 09/04/18 15:03; Admin Dose 2 PUFF; Start 09/03/18 at 12:00 Metronidazole (Flagyl) 500 mg Q8 NGT Last administered on 09/11/18 13:17; Admin Dose 500 MG; Start 09/04/18 at 14:00 Acetylcysteine (Mucomyst) 1 ml Q6H RESP THERAPY NEB Last administered on 09/11/18 13:00; Admin Dose 1 ML; Start 09/05/18 at 10:00 Famotidine (Pepcid) 20 mg HS GTB Last administered on 09/10/18at 20:53; Admin Dose 20 MG; Start 09/06/18 at 21:00 Levalbuterol (Xopenex Neb) 0.63 mg Q6H RESP THERAPY HHN Last administered on 09/11/18at 13:00; Admin Dose 0.63 MG; Start 09/10/18 at 14:00 Ipratropium [place] (Atrovent 0.02% (Neb)) 0.5 mg Q6H RESP THERAPY HHN Last administered on 09/11/18at 13:00; Admin Dose 0.5 MG; Start 09/10/18 at 14:00 Fluconazole (Diflucan) 100 mg DAILY PO ; Start 09/12/18 at 09:00 DANAY MUIR Sep 11, 2018 13:59
[2018-09-11] MEDS ORDERED: NA POLYST SULFON 15 GM/60 ML BTL GTB ONE (20:30)
[2018-09-11] MEDS: FAMOTIDINE 20 MG TAB GTB SCH (20:50)
[2018-09-12] VITALS (18 sets, daily range): BP systolic 108–131; BP diastolic 73–104; PULSE 100–113; RESP 18–34
[2018-09-12] MEDS: LEVALBUTEROL (NEB) 0.63 MG/3 ML AMP HHN SCH ×4 (01:41→19:49)
[2018-09-12] MEDS: IPRATROPIUM (NEB) 0.5 MG/2.5 ML AMP HHN SCH ×4 (01:41→19:49)
[2018-09-12] MEDS: ACETYLCYSTEINE 20% 4 ML VIAL NEB SCH ×4 (01:41→19:49)
[2018-09-12] MEDS: morphine 2 MG INJ IV PRN ×2 (03:37→21:01)
[2018-09-12] MEDS: metroNIDAZOLE 500 MG TAB NGT SCH ×3 (05:37→22:47)
[2018-09-12] MEDS: GABAPENTIN (50 MG/ML PO SYG) GTB SCH ×2 (08:15→20:59)
[2018-09-12] MEDS: LEVETIRACETAM (100 MG/ML) 5ML CUP GTB SCH ×2 (08:15→20:57)
[2018-09-12] MEDS: ASCORBIC ACID 500 MG TAB GTB SCH (08:16)
[2018-09-12] MEDS: QUETIAPINE 25 MG TAB GTB SCH ×2 (08:16→20:58)
[2018-09-12] MEDS: FLUCONAZOLE 100 MG TAB PO SCH (08:16)
[2018-09-12] MEDS: ENOXAPARIN 30 MG/0.3 ML SYG SC SCH (08:18)
[2018-09-12] MEDS: ZINC SULFATE 220 MG CAP GTB SCH (08:19)
--- NOTE | 2018-09-12 10:57 | PN ---
Date/Time of Note Date/Time of Note DATE: 09/12/18 TIME: 10:57 Assessment/Plan VTE Prophylaxis Risk score (from Ns)>0 risk: 9 SCD applied (from Ns): Yes Pharmacological prophylaxis: LMWH Lines/Catheters IV Catheter Type (from Nrsg): Central Line Central line still needed: Yes Urinary Cath still in place: Yes Reason Cath still needed: skin wounds contaminated by urine Assessment/Plan Hospital Course 1) sepsis - IV antibiotics 2) hypotension - secondary to #1 - give IV fluids, on vasopressors 3) respiratory failure - continue on vent 4) seizure disorder - continue keppra Patient's anemia is worsening and needs to transfuse to maintain oxygenation. Result Diagram: 09/11/18192509/11/181925 Results 24hrs Laboratory Tests Test 09/11/18 19:26 09/12/18 07:37 White Blood Count 5.4 # Red Blood Count 3.30 #L Hemoglobin 9.5 #L Hematocrit 32.1 #L Mean Corpuscular Volume 97.3 Mean Corpuscular Hemoglobin 28.8 L Mean Corpuscular Hemoglobin Concent 29.6 L Red Cell Distribution Width 19.4 H Platelet Count 133 #L Mean Platelet Volume 12.8 H Immature Granulocytes % 0.400 Neutrophils % 75.9 Lymphocytes % 7.1 L Monocytes % 6.5 Eosinophils % 9.7 H Basophils % 0.4 Nucleated Red Blood Cells % 0.0 Immature Granulocytes # 0.020 Neutrophils # 4.1 Lymphocytes # 0.4 L Monocytes # 0.4 Eosinophils # 0.5 Basophils # 0.0 Nucleated Red Blood Cells # 0.0 Sodium Level 149 H Potassium Level 6.6 *H Chloride Level 122 H Carbon Dioxide Level 23 Anion Gap 4 L Blood Urea Nitrogen 65 H Creatinine 1.14 Est Glomerular Filtrat Rate mL/min > 60 Glucose Level 108 Calcium Level 8.6 Lab Scanned Report BLOOD TRANSFUSION Subjective 24 Hr Interval Summary Free Text/Dictation Patient has no complaints but he is noted to have hyperkalemia Exam/Review of Systems Exam Vitals Vital Signs Date Temp Pulse Resp B/P (MAP) Pulse Ox O2 O2 Flow FiO2 Time Delivery Rate 09/12/18 40 10:35 09/12/18 115 30 96 09:12 09/12/18 98.4 128/96 Mechanical 07:47 (107) Ventilator Intake and Output 809/11/18 09/12/18 1515:00 23:00 07:00 IntakeIntake Total 960 ml 960 ml OutputOutput Total 2400 ml 1500 ml BalanceBalance -2400 ml 960 ml -540 ml Constitutional: well developed Head: normocephalic, atraumatic Neck: supple Respiratory: diminished breath sounds Cardiovascular: regular rate and rhythm Gastrointestinal: soft, non-tender Extremities: normal pulses Results Results 24hrs Laboratory Tests Test 09/11/18 19:26 09/12/18 07:37 White Blood Count 5.4 # Red Blood Count 3.30 #L Hemoglobin 9.5 #L Hematocrit 32.1 #L Mean Corpuscular Volume 97.3 Mean Corpuscular Hemoglobin 28.8 L Mean Corpuscular Hemoglobin Concent 29.6 L Red Cell Distribution Width 19.4 H Platelet Count 133 #L Mean Platelet Volume 12.8 H Immature Granulocytes % 0.400 Neutrophils % 75.9 Lymphocytes % 7.1 L Monocytes % 6.5 Eosinophils % 9.7 H Basophils % 0.4 Nucleated Red Blood Cells % 0.0 Immature Granulocytes # 0.020 Neutrophils # 4.1 Lymphocytes # 0.4 L Monocytes # 0.4 Eosinophils # 0.5 Basophils # 0.0 Nucleated Red Blood Cells # 0.0 Sodium Level 149 H Potassium Level 6.6 *H Chloride Level 122 H Carbon Dioxide Level 23 Anion Gap 4 L Blood Urea Nitrogen 65 H Creatinine 1.14 Est Glomerular Filtrat Rate mL/min > 60 Glucose Level 108 Calcium Level 8.6 Lab Scanned Report BLOOD TRANSFUSION Medications Medication Current Medications Ondansetron HCl (Zofran Inj) 4 mg Q6H PRN IV NAUSEA AND/OR VOMITING; Start 09/02/18 at 13:30 Acetaminophen (Tylenol Liquid) 650 mg Q4H PRN GTB PAIN LEVEL 1-3 OR FEVER Last administered on 09/04/18at 21:42; Admin Dose 650 MG; Start 09/02/18 at 13:30 Morphine Sulfate (morphine) 2 mg Q4H PRN IV PAIN LEVEL 7-10 Last administered on 09/12/18at 03:37; Admin Dose 2 MG; Start 09/02/18 at 13:30 Enoxaparin Sodium (Lovenox) 30 mg DAILY SC Last administered on 09/12/18at 08:18; Admin Dose 30 MG; Start 09/03/18 at 09:00 Ascorbic Acid (Vitamin C) 500 mg DAILY GTB Last administered on 09/12/18 08:16; Admin Dose 500 MG; Start 09/03/18 at 09:00 Diphenhydramine HCl (Benadryl) 25 mg QHS PRN GTB ITCHING; Start 09/02/18 at 13:30 Gabapentin (Neurontin Liquid) 300 mg BID GTB Last administered on 09/12/18 08:15; Admin Dose 300 MG; Start 09/02/18 at 21:00 Acetaminophen/ Hydrocodone Bitart ([place] (5/325)) 1 tab Q4H WHILE AWAKE PRN GTB SEVERE PAIN LEVEL 7-10 Last administered on 09/06/18 08:52; Admin Dose 1 TAB; Start 09/02/18 at 13:30 Quetiapine Fumarate (Seroquel) 75 mg BID GTB Last administered on 09/12/18 08:16; Admin Dose 75 MG; Start 09/02/18 at 21:00 Zinc Sulfate (Zinc Sulfate) 220 mg DAILY GTB Last administered on 09/12/18 08:19; Admin Dose 220 MG; Start 09/03/18 at 09:00 Levetiracetam (Keppra Liquid) 500 mg BID GTB Last administered on 09/12/18 08:15; Admin Dose 500 MG; Start 09/02/18 at 21:00 Albuterol (Ventolin Hfa) 2 puff Q4H RESP THERAPY PRN INH SHORTNESS OF BREATH Last administered on 09/04/18 15:03; Admin Dose 2 PUFF; Start 09/03/18 at 12:00 Metronidazole (Flagyl) 500 mg Q8 NGT Last administered on 09/12/18 05:37; Admin Dose 500 MG; Start 09/04/18 at 14:00 Acetylcysteine (Mucomyst) 1 ml Q6H RESP THERAPY NEB Last administered on 09/12/18 07:54; Admin Dose 1 ML; Start 09/05/18 at 10:00 Famotidine (Pepcid) 20 mg HS GTB Last administered on 09/11/18 20:50; Admin Dose 20 MG; Start 09/06/18 at 21:00 Levalbuterol (Xopenex Neb) 0.63 mg Q6H RESP THERAPY HHN Last administered on 09/12/18at 07:54; Admin Dose 0.63 MG; Start 09/10/18 at 14:00 Ipratropium [place] (Atrovent 0.02% (Neb)) 0.5 mg Q6H RESP THERAPY HHN Last administered on 09/12/18 07:54; Admin Dose 0.5 MG; Start 09/10/18 at 14:00 Fluconazole (Diflucan) 100 mg DAILY PO Last administered on 09/12/18at 08:16; Admin Dose 100 MG; Start 09/12/18 at 09:00 DANAY MUIR Sep 12, 2018 10:57
--- NOTE | 2018-09-12 11:01 | PN ---
DATE: 09/12/2018 SUBJECTIVE: The patient is on the medical floor. He is on continuous long-term ventilator support t hrough tracheostomy. His breathing appears comfortable synchronized with the ventilator. PHYSICAL EXAMINATION: VITAL SIGNS: Show temperature 98.4, blood pressure 128/96, pulse rate of 115, respirations 25, pulse oximetry 98% saturation. He is on 40% oxygen. GENERAL: Throat could not be seen as he would not cooperate and open his mouth. Tracheostomy tube i s in place, though tracheostomy low opening is large. He seems to be getting enough ventilation and seems to be no air leak around the tracheostomy tube. HEART: Regular rhythm with sinus tachycardia. CHEST: Breath sounds are diminished in both the lower lung tier[place] with a few occasional rales and rh onchi. Auscultation is difficult. ABDOMEN: Soft. He is tolerating G-tube feedings. No distention seen. Normal bowel sounds. EXTREMITIES: Show no edema. He is paraplegic. No lab results are available today. IMPRESSION: 1. Status post septic shock. 2. Chronic ventilator dependent respiratory failure. 3. Chronic kidney disease with acute kidney injury, gradually improving. 4. Chronic anemia. 5. History of seizure disorder. 6. History of nephrolithiasis. 7. History of bipolar disorder. 8. Paraplegia secondary to spinal cord injury. 9. Multiple decubiti. PLAN: 1. Continue long-term ventilator support. 2. Continue antibiotics as per infectious disease medical sales consultant. 3. Continue tube feedings. 4. Continue GI prophylaxis. 5. Continue DVT prophylaxis. 6. Continue wound care. 7. Continue supportive therapy. Dictated By: HUMBERTO PEREZ MD SR/NTS Conf#: [id number] DID#: [id number] CC: DANAY MUIR MD;*EndCC*
--- NOTE | 2018-09-12 12:17 | CONS ---
Assessment/Plan Assessment/Plan Hospital Course (Demo Recall) SUBJECTIVE: No acute changes MICROBIOLOGY: Blood cultures remain negative. Urine culture growing yeast. Stool for C. difficile came back negative ANTIMICROBIALS: Diflucan, Flagyl INDWELLINGS: Trach, PEG, rectal tube and suprapubic catheter. PHYSICAL EXAMINATION: GENERAL: This is a chronically ill-appearing, wasted, middle-aged man who is in no distress. HEENT: Head atraumatic, normocephalic. NECK: Supple. Tracheostomy present. CHEST: Rise symmetrical. Breath sounds diminished to bases. HEART: S1, S2. ABDOMEN: Soft, bowel sounds hypoactive. EXTREMITIES: Contractured. ASSESSMENT: 1. S/p severe sepsis with shock. 2. Ongoing diarrhea, rule out Clostridium difficile colitis. 3. Recurrent urinary tract infection. 4. Questionable pneumonia. 5. Quadriplegia. 6. Chronic kidney disease status post nephrectomy. 7. ALLERGIES: Tetracyclines. PLAN: Stable, continue antibiotics Consultation Date/Type/Reason Admit Date/Time Sep 02, 2018 at 16:44 Initial Consult Date Type of Consult id Date/Time of Note DATE: 09/12/18 TIME: 12:16 Exam/Review of Systems Exam Vitals Vital Signs Date Temp Pulse Resp B/P (MAP) Pulse Ox O2 O2 Flow FiO2 Time Delivery Rate 09/12/18 97.9 113 18 108/73 98 Mechanical 11:18 (85) Ventilator 09/12/18 40 11:10 Intake and Output 09/11/18 09/11/18 09/12/18 1515:00 23:00 07:00 IntakeIntake Total 960 ml 960 ml OutputOutput Total 2400 ml 1500 ml BalanceBalance -2400 ml 960 ml -540 ml Results Result Diagram: 09/11/18192509/11/181925 Results 24hrs Laboratory Tests Test 09/11/18 19:26 09/12/18 07:37 White Blood Count 5.4 # Red Blood Count 3.30 #L Hemoglobin 9.5 #L Hematocrit 32.1 #L Mean Corpuscular Volume 97.3 Mean Corpuscular Hemoglobin 28.8 L Mean Corpuscular Hemoglobin Concent 29.6 L Red Cell Distribution Width 19.4 H Platelet Count 133 #L Mean Platelet Volume 12.8 H Immature Granulocytes % 0.400 Neutrophils % 75.9 Lymphocytes % 7.1 L Monocytes % 6.5 Eosinophils % 9.7 H Basophils % 0.4 Nucleated Red Blood Cells % 0.0 Immature Granulocytes # 0.020 Neutrophils # 4.1 Lymphocytes # 0.4 L Monocytes # 0.4 Eosinophils # 0.5 Basophils # 0.0 Nucleated Red Blood Cells # 0.0 Sodium Level 149 H Potassium Level 6.6 *H Chloride Level 122 H Carbon Dioxide Level 23 Anion Gap 4 L Blood Urea Nitrogen 65 H Creatinine 1.14 Est Glomerular Filtrat Rate mL/min > 60 Glucose Level 108 Calcium Level 8.6 Lab Scanned Report BLOOD TRANSFUSION Medications Medication Current Medications Ondansetron HCl (Zofran Inj) 4 mg Q6H PRN IV NAUSEA AND/OR VOMITING; Start 09/02/18 at 13:30 Acetaminophen (Tylenol Liquid) 650 mg Q4H PRN GTB PAIN LEVEL 1-3 OR FEVER Last administered on 09/04/18 21:42; Admin Dose 650 MG; Start 09/02/18 at 13:30 Morphine Sulfate (morphine) 2 mg Q4H PRN IV PAIN LEVEL 7-10 Last administered on 09/12/18 03:37; Admin Dose 2 MG; Start 09/02/18 at 13:30 Enoxaparin Sodium (Lovenox) 30 mg DAILY SC Last administered on 09/12/18 08:18; Admin Dose 30 MG; Start 09/03/18 at 09:00 Ascorbic Acid (Vitamin C) 500 mg DAILY GTB Last administered on 09/12/18 08:16; Admin Dose 500 MG; Start 09/03/18 at 09:00 Diphenhydramine HCl (Benadryl) 25 mg QHS PRN GTB ITCHING; Start 09/02/18 at 13:30 Gabapentin (Neurontin Liquid) 300 mg BID GTB Last administered on 09/12/18 08:15; Admin Dose 300 MG; Start 09/02/18 at 21:00 Acetaminophen/ Hydrocodone Bitart ([place] (5/325)) 1 tab Q4H WHILE AWAKE PRN GTB SEVERE PAIN LEVEL 7-10 Last administered on 09/06/18 08:52; Admin Dose 1 TAB; Start 09/02/18 at 13:30 Quetiapine Fumarate (Seroquel) 75 mg BID GTB Last administered on 09/12/18 08:16; Admin Dose 75 MG; Start 09/02/18 at 21:00 Zinc Sulfate (Zinc Sulfate) 220 mg DAILY GTB Last administered on 09/12/18 08:19; Admin Dose 220 MG; Start 09/03/18 at 09:00 Levetiracetam (Keppra Liquid) 500 mg BID GTB Last administered on 09/12/18 08:15; Admin Dose 500 MG; Start 09/02/18 at 21:00 Albuterol (Ventolin Hfa) 2 puff Q4H RESP THERAPY PRN INH SHORTNESS OF BREATH Last administered on 09/04/18 15:03; Admin Dose 2 PUFF; Start 09/03/18 at 12:00 Metronidazole (Flagyl) 500 mg Q8 NGT Last administered on 09/12/18 05:37; Admin Dose 500 MG; Start 09/04/18 at 14:00 Acetylcysteine (Mucomyst) 1 ml Q6H RESP THERAPY NEB Last administered on 09/12/18 07:54; Admin Dose 1 ML; Start 09/05/18 at 10:00 Famotidine (Pepcid) 20 mg HS GTB Last administered on 09/11/18 20:50; Admin Dose 20 MG; Start 09/06/18 at 21:00 Levalbuterol (Xopenex Neb) 0.63 mg Q6H RESP THERAPY HHN Last administered on 09/12/18 07:54; Admin Dose 0.63 MG; Start 09/10/18 at 14:00 Ipratropium [place] (Atrovent 0.02% (Neb)) 0.5 mg Q6H RESP THERAPY HHN Last administered on 09/12/18 07:54; Admin Dose 0.5 MG; Start 09/10/18 at 14:00 Fluconazole (Diflucan) 100 mg DAILY PO Last administered on 09/12/18 08:16; Admin Dose 100 MG; Start 09/12/18 at 09:00 REGINALDO BOND NP Sep 12, 2018 12:17
[2018-09-12] MEDS: FAMOTIDINE 20 MG TAB GTB SCH (20:57)
[2018-09-13] VITALS (18 sets, daily range): BP systolic 99–125; BP diastolic 78–91; PULSE 98–112; RESP 18–33
[2018-09-13] MEDS: morphine 2 MG INJ IV PRN ×4 (01:35→21:20)
[2018-09-13] MEDS: ACETYLCYSTEINE 20% 4 ML VIAL NEB SCH ×4 (01:46→20:20)
[2018-09-13] MEDS: IPRATROPIUM (NEB) 0.5 MG/2.5 ML AMP HHN SCH ×4 (01:47→20:20)
[2018-09-13] MEDS: LEVALBUTEROL (NEB) 0.63 MG/3 ML AMP HHN SCH ×4 (01:47→20:20)
[2018-09-13] MEDS: metroNIDAZOLE 500 MG TAB NGT SCH ×2 (06:22→13:32)
[2018-09-13] MEDS ORDERED: NA POLYST SULFON 15 GM/60 ML BTL GTB ONE (07:30)
[2018-09-13] MEDS: ASCORBIC ACID 500 MG TAB GTB SCH (08:07)
[2018-09-13] MEDS: ZINC SULFATE 220 MG CAP GTB SCH (08:07)
[2018-09-13] MEDS: LEVETIRACETAM (100 MG/ML) 5ML CUP GTB SCH ×2 (08:07→22:04)
[2018-09-13] MEDS: FLUCONAZOLE 100 MG TAB PO SCH (08:07)
[2018-09-13] MEDS: QUETIAPINE 25 MG TAB GTB SCH ×2 (08:07→22:05)
[2018-09-13] MEDS: ENOXAPARIN 30 MG/0.3 ML SYG SC SCH (08:19)
[2018-09-13] MEDS: GABAPENTIN (50 MG/ML PO SYG) GTB SCH ×2 (09:55→22:04)
--- NOTE | 2018-09-13 14:13 | PN ---
Date/Time of Note Date/Time of Note DATE: 09/13/18 TIME: 14:12 Assessment/Plan VTE Prophylaxis Risk score (from Ns)>0 risk: 8 SCD applied (from Ns): Yes Pharmacological prophylaxis: LMWH Lines/Catheters IV Catheter Type (from Nrsg): Central Line Central line still needed: Yes Urinary Cath still in place: Yes Reason Cath still needed: skin wounds contaminated by urine Assessment/Plan Hospital Course 1) sepsis - IV antibiotics 2) hypotension - secondary to #1 - give IV fluids, on vasopressors 3) respiratory failure - continue on vent 4) seizure disorder - continue keppra Patient's anemia is worsening and needs to transfuse to maintain oxygenation. Result Diagram: 09/13/18 0553 09/13/18 0552 Results 24hrs Laboratory Tests Test 09/13/18 05:52 09/13/18 05:53 Sodium Level 152 H Potassium Level 5.5 H Chloride Level 123 H Carbon Dioxide Level 26 Anion Gap 3 L Blood Urea Nitrogen 56 H Creatinine 1.01 Est Glomerular Filtrat Rate mL/min > 60 Glucose Level 124 Calcium Level 8.7 Total Bilirubin 0.2 Direct Bilirubin 0.00 Indirect Bilirubin 0.2 Aspartate Amino Transf (AST/SGOT) 22 Alanine Aminotransferase (ALT/SGPT) 16 Alkaline Phosphatase 110 Total Protein 6.6 Albumin 2.5 L Globulin 4.10 H Albumin/Globulin Ratio 0.60 White Blood Count 5.0 Red Blood Count 3.41 L Hemoglobin 9.7 L Hematocrit 34.5 L Mean Corpuscular Volume 101.2 H Mean Corpuscular Hemoglobin 28.4 L Mean Corpuscular Hemoglobin Concent 28.1 L Red Cell Distribution Width 19.8 H Platelet Count 109 L Mean Platelet Volume 13.0 H Immature Granulocytes % 0.400 Neutrophils % Segmented Neutrophils % (Manual) 72 Band Neutrophils % (Manual) 12 H Lymphocytes % Lymphocytes % (Manual) 10 L Monocytes % Monocytes % (Manual) 4 Eosinophils % Eosinophils % (Manual) 2 Basophils % Nucleated Red Blood Cells % 0.0 Immature Granulocytes # 0.020 Neutrophils # Neutrophils # (Manual) 3.6 Band Neutrophils # 0.6 Lymphocytes (Manual) 0.5 L Lymphocytes # Monocytes # Monocytes # (Manual) 0.2 L Eosinophils # Basophils # Nucleated Red Blood Cells # Platelet Estimate DECREASED Giant Platelets 2 H Polychromasia 3+ Poikilocytosis 3+ Anisocytosis 2+ Microcytosis 2+ Subjective 24 Hr Interval Summary Free Text/Dictation Patient has no complaints Exam/Review of Systems Exam Vitals Vital Signs Date Temp Pulse Resp B/P (MAP) Pulse Ox O2 O2 Flow FiO2 Time Delivery Rate 09/13/18 98.7 112 18 125/91 98 Mechanical 11:57 (102) Ventilator 09/13/18 40 09:55 Intake and Output 09/12/18 09/12/18 09/13/18 1515:00 23:00 07:00 IntakeIntake Total 960 ml OutputOutput Total 900 ml 300 ml 1000 ml BalanceBalance -900 ml -300 ml -40 ml Constitutional: well developed Head: normocephalic, atraumatic Neck: supple Respiratory: diminished breath sounds Cardiovascular: regular rate and rhythm Gastrointestinal: soft, non-tender Extremities: normal pulses Results Results 24hrs Laboratory Tests Test 09/13/18 05:52 09/13/18 05:53 Sodium Level 152 H Potassium Level 5.5 H Chloride Level 123 H Carbon Dioxide Level 26 Anion Gap 3 L Blood Urea Nitrogen 56 H Creatinine 1.01 Est Glomerular Filtrat Rate mL/min > 60 Glucose Level 124 Calcium Level 8.7 Total Bilirubin 0.2 Direct Bilirubin 0.00 Indirect Bilirubin 0.2 Aspartate Amino Transf (AST/SGOT) 22 Alanine Aminotransferase (ALT/SGPT) 16 Alkaline Phosphatase 110 Total Protein 6.6 Albumin 2.5 L Globulin 4.10 H Albumin/Globulin Ratio 0.60 White Blood Count 5.0 Red Blood Count 3.41 L Hemoglobin 9.7 L Hematocrit 34.5 L Mean Corpuscular Volume 101.2 H Mean Corpuscular Hemoglobin 28.4 L Mean Corpuscular Hemoglobin Concent 28.1 L Red Cell Distribution Width 19.8 H Platelet Count 109 L Mean Platelet Volume 13.0 H Immature Granulocytes % 0.400 Neutrophils % Segmented Neutrophils % (Manual) 72 Band Neutrophils % (Manual) 12 H Lymphocytes % Lymphocytes % (Manual) 10 L Monocytes % Monocytes % (Manual) 4 Eosinophils % Eosinophils % (Manual) 2 Basophils % Nucleated Red Blood Cells % 0.0 Immature Granulocytes # 0.020 Neutrophils # Neutrophils # (Manual) 3.6 Band Neutrophils # 0.6 Lymphocytes (Manual) 0.5 L Lymphocytes # Monocytes # Monocytes # (Manual) 0.2 L Eosinophils # Basophils # Nucleated Red Blood Cells # Platelet Estimate DECREASED Giant Platelets 2 H Polychromasia 3+ Poikilocytosis 3+ Anisocytosis 2+ Microcytosis 2+ Medications Medication Current Medications Ondansetron HCl (Zofran Inj) 4 mg Q6H PRN IV NAUSEA AND/OR VOMITING; Start 09/02/18 at 13:30 Acetaminophen (Tylenol Liquid) 650 mg Q4H PRN GTB PAIN LEVEL 1-3 OR FEVER Last administered on 09/04/18 21:42; Admin Dose 650 MG; Start 09/02/18 at 13:30 Morphine Sulfate (morphine) 2 mg Q4H PRN IV PAIN LEVEL 7-10 Last administered on 09/13/18 13:32; Admin Dose 2 MG; Start 09/02/18 at 13:30 Enoxaparin Sodium (Lovenox) 30 mg DAILY SC Last administered on 09/13/18 08:19; Admin Dose 30 MG; Start 09/03/18 at 09:00 Ascorbic Acid (Vitamin C) 500 mg DAILY GTB Last administered on 09/13/18 08:07; Admin Dose 500 MG; Start 09/03/18 at 09:00 Diphenhydramine HCl (Benadryl) 25 mg QHS PRN GTB ITCHING; Start 09/02/18 at 13:30 Gabapentin (Neurontin Liquid) 300 mg BID GTB Last administered on 09/13/18 09:55; Admin Dose 300 MG; Start 09/02/18 at 21:00 Acetaminophen/ Hydrocodone Bitart ([place] (5/325)) 1 tab Q4H WHILE AWAKE PRN GTB SEVERE PAIN LEVEL 7-10 Last administered on 09/06/18 08:52; Admin Dose 1 TAB; Start 09/02/18 at 13:30 Quetiapine Fumarate (Seroquel) 75 mg BID GTB Last administered on 09/13/18 08:07; Admin Dose 75 MG; Start 09/02/18 at 21:00 Zinc Sulfate (Zinc Sulfate) 220 mg DAILY GTB Last administered on 09/13/18 08:07; Admin Dose 220 MG; Start 09/03/18 at 09:00 Levetiracetam (Keppra Liquid) 500 mg BID GTB Last administered on 09/13/18 08:07; Admin Dose 500 MG; Start 09/02/18 at 21:00 Albuterol (Ventolin Hfa) 2 puff Q4H RESP THERAPY PRN INH SHORTNESS OF BREATH Last administered on 09/04/18 15:03; Admin Dose 2 PUFF; Start 09/03/18 at 12:00 Metronidazole (Flagyl) 500 mg Q8 NGT Last administered on 09/13/18 13:32; Admin Dose 500 MG; Start 09/04/18 at 14:00 Acetylcysteine (Mucomyst) 1 ml Q6H RESP THERAPY NEB Last administered on 09/13/18 08:51; Admin Dose 1 ML; Start 09/05/18 at 10:00 Famotidine (Pepcid) 20 mg HS GTB Last administered on 09/12/18 20:57; Admin Dose 20 MG; Start 09/06/18 at 21:00 Levalbuterol (Xopenex Neb) 0.63 mg Q6H RESP THERAPY HHN Last administered on 09/13/18 08:51; Admin Dose 0.63 MG; Start 09/10/18 at 14:00 Ipratropium [place] (Atrovent 0.02% (Neb)) 0.5 mg Q6H RESP THERAPY HHN Last administered on 09/13/18 08:51; Admin Dose 0.5 MG; Start 09/10/18 at 14:00 Fluconazole (Diflucan) 100 mg DAILY PO Last administered on 09/13/18 08:07; Admin Dose 100 MG; Start 09/12/18 at 09:00 DANAY MUIR Sep 13, 2018 14:13
--- NOTE | 2018-09-13 16:03 | CONS ---
Assessment/Plan Assessment/Plan Hospital Course (Demo Recall) 1200 Awake, looks comfortable fevers overnight MICROBIOLOGY: Blood cultures remain negative. Urine culture growing yeast. Stool for C. difficile came back negative ANTIMICROBIALS: Diflucan, Flagyl INDWELLINGS: Trach, PEG, rectal tube and suprapubic catheter. PHYSICAL EXAMINATION: GENERAL: This is a chronically ill-appearing, wasted, middle-aged man who is in no distress. HEENT: Head atraumatic, normocephalic. NECK: Supple. Tracheostomy present. CHEST: Rise symmetrical. Breath sounds diminished to bases. HEART: S1, S2. ABDOMEN: Soft, bowel sounds hypoactive. EXTREMITIES: Contractured. ASSESSMENT: 1. S/p severe sepsis with shock. 2. Ongoing diarrhea, rule out Clostridium difficile colitis. 3. Recurrent urinary tract infection. 4. Questionable pneumonia. 5. Quadriplegia. 6. Chronic kidney disease status post nephrectomy. 7. ALLERGIES: Tetracyclines. PLAN: Stable, DC Flagyl Consultation Date/Type/Reason Admit Date/Time Sep 02, 2018 at 16:44 Initial Consult Date Type of Consult id Date/Time of Note DATE: 09/13/18 TIME: 16:03 Exam/Review of Systems Exam Vitals Vital Signs Date Temp Pulse Resp B/P (MAP) Pulse Ox O2 O2 Flow FiO2 Time Delivery Rate 09/13/18 98.7 109 23 104/87 98 Mechanical 15:43 (93) Ventilator 09/13/18 35 15:21 Intake and Output 09/12/18 09/12/18 09/13/18 1515:00 23:00 07:00 IntakeIntake Total 960 ml OutputOutput Total 900 ml 300 ml 1000 ml BalanceBalance -900 ml -300 ml -40 ml Results Result Diagram: 09/13/18 0553 09/13/18 0552 Results 24hrs Laboratory Tests Test 09/13/18 05:52 09/13/18 05:53 Sodium Level 152 H Potassium Level 5.5 H Chloride Level 123 H Carbon Dioxide Level 26 Anion Gap 3 L Blood Urea Nitrogen 56 H Creatinine 1.01 Est Glomerular Filtrat Rate mL/min > 60 Glucose Level 124 Calcium Level 8.7 Total Bilirubin 0.2 Direct Bilirubin 0.00 Indirect Bilirubin 0.2 Aspartate Amino Transf (AST/SGOT) 22 Alanine Aminotransferase (ALT/SGPT) 16 Alkaline Phosphatase 110 Total Protein 6.6 Albumin 2.5 L Globulin 4.10 H Albumin/Globulin Ratio 0.60 White Blood Count 5.0 Red Blood Count 3.41 L Hemoglobin 9.7 L Hematocrit 34.5 L Mean Corpuscular Volume 101.2 H Mean Corpuscular Hemoglobin 28.4 L Mean Corpuscular Hemoglobin Concent 28.1 L Red Cell Distribution Width 19.8 H Platelet Count 109 L Mean Platelet Volume 13.0 H Immature Granulocytes % 0.400 Neutrophils % Segmented Neutrophils % (Manual) 72 Band Neutrophils % (Manual) 12 H Lymphocytes % Lymphocytes % (Manual) 10 L Monocytes % Monocytes % (Manual) 4 Eosinophils % Eosinophils % (Manual) 2 Basophils % Nucleated Red Blood Cells % 0.0 Immature Granulocytes # 0.020 Neutrophils # Neutrophils # (Manual) 3.6 Band Neutrophils # 0.6 Lymphocytes (Manual) 0.5 L Lymphocytes # Monocytes # Monocytes # (Manual) 0.2 L Eosinophils # Basophils # Nucleated Red Blood Cells # Platelet Estimate DECREASED Giant Platelets 2 H Polychromasia 3+ Poikilocytosis 3+ Anisocytosis 2+ Microcytosis 2+ Medications Medication Current Medications Ondansetron HCl (Zofran Inj) 4 mg Q6H PRN IV NAUSEA AND/OR VOMITING; Start 09/02/18 at 13:30 Acetaminophen (Tylenol Liquid) 650 mg Q4H PRN GTB PAIN LEVEL 1-3 OR FEVER Last administered on 09/04/18at 21:42; Admin Dose 650 MG; Start 09/02/18 at 13:30 Morphine Sulfate (morphine) 2 mg Q4H PRN IV PAIN LEVEL 7-10 Last administered on 09/13/18 13:32; Admin Dose 2 MG; Start 09/02/18 at 13:30 Enoxaparin Sodium (Lovenox) 30 mg DAILY SC Last administered on 09/13/18 08:19; Admin Dose 30 MG; Start 09/03/18 at 09:00 Ascorbic Acid (Vitamin C) 500 mg DAILY GTB Last administered on 09/13/18 08:07; Admin Dose 500 MG; Start 09/03/18 at 09:00 Diphenhydramine HCl (Benadryl) 25 mg QHS PRN GTB ITCHING; Start 09/02/18 at 13:30 Gabapentin (Neurontin Liquid) 300 mg BID GTB Last administered on 8/8/19at 09:55; Admin Dose 300 MG; Start 09/02/18 at 21:00 Acetaminophen/ Hydrocodone Bitart ([place] (5/325)) 1 tab Q4H WHILE AWAKE PRN GTB SEVERE PAIN LEVEL 7-10 Last administered on 09/06/18 08:52; Admin Dose 1 TAB; Start 09/02/18 at 13:30 Quetiapine Fumarate (Seroquel) 75 mg BID GTB Last administered on 09/13/18 08:07; Admin Dose 75 MG; Start 09/02/18 at 21:00 Zinc Sulfate (Zinc Sulfate) 220 mg DAILY GTB Last administered on 09/13/18 08: 07; Admin Dose 220 MG; Start 09/03/18 at 09:00 Levetiracetam (Keppra Liquid) 500 mg BID GTB Last administered on 09/13/18 08:07; Admin Dose 500 MG; Start 09/02/18 at 21:00 Albuterol (Ventolin Hfa) 2 puff Q4H RESP THERAPY PRN INH SHORTNESS OF BREATH Last administered on 09/04/18 15:03; Admin Dose 2 PUFF; Start 09/03/18 at 12:00 Metronidazole (Flagyl) 500 mg Q8 NGT Last administered on 09/13/18 13:32; Admin Dose 500 MG; Start 09/04/18 at 14:00 Acetylcysteine (Mucomyst) 1 ml Q6H RESP THERAPY NEB Last administered on 09/13/18 08:51; Admin Dose 1 ML; Start 09/05/18 at 10:00 Famotidine (Pepcid) 20 mg HS GTB Last administered on 09/12/18 20:57; Admin Dose 20 MG; Start 09/06/18 at 21:00 Levalbuterol (Xopenex Neb) 0.63 mg Q6H RESP THERAPY HHN Last administered on 09/13/18 13:45; Admin Dose 0.63 MG; Start 09/10/18 at 14:00 Ipratropium [place] (Atrovent 0.02% (Neb)) 0.5 mg Q6H RESP THERAPY HHN Last administered on 09/13/18 13:45; Admin Dose 0.5 MG; Start 09/10/18 at 14:00 Fluconazole (Diflucan) 100 mg DAILY PO Last administered on 09/13/18at 08:07; Admin Dose 100 MG; Start 09/12/18 at 09:00 REGINALDO BOND NP Sep 13, 2018 16:03
[2018-09-13] MEDS: FAMOTIDINE 20 MG TAB GTB SCH (22:05)
[2018-09-14] VITALS (35 sets, daily range): BP systolic 65–105; BP diastolic 37–87; PULSE 74–140; RESP 18–33
[2018-09-14] MEDS: IPRATROPIUM (NEB) 0.5 MG/2.5 ML AMP HHN SCH ×3 (01:35→19:59)
[2018-09-14] MEDS: ACETYLCYSTEINE 20% 4 ML VIAL NEB SCH ×3 (01:35→20:00)
[2018-09-14] MEDS: LEVALBUTEROL (NEB) 0.63 MG/3 ML AMP HHN SCH ×3 (01:35→20:00)
[2018-09-14] MEDS: ACETAMINOPHEN 650MG/20.3ML CUP GTB PRN (01:49)
[2018-09-14] MEDS: LEVETIRACETAM (100 MG/ML) 5ML CUP GTB SCH ×2 (09:14→21:20)
[2018-09-14] MEDS: GABAPENTIN (50 MG/ML PO SYG) GTB SCH ×2 (09:14→21:21)
[2018-09-14] MEDS: FLUCONAZOLE 100 MG TAB PO SCH (09:14)
[2018-09-14] MEDS: ASCORBIC ACID 500 MG TAB GTB SCH (09:14)
[2018-09-14] MEDS: QUETIAPINE 25 MG TAB GTB SCH ×2 (09:14→21:00)
[2018-09-14] MEDS: ZINC SULFATE 220 MG CAP GTB SCH (09:14)
[2018-09-14] MEDS: ENOXAPARIN 30 MG/0.3 ML SYG SC SCH (09:22)
--- NOTE | 2018-09-14 13:43 | PN ---
DATE: 09/14/2018 SUBJECTIVE: The patient is on ventilator support. He is awake, opens his eyes, looks around, but he is nonverbal. The tracheostomy is functioning well. PHYSICAL EXAMINATION: VITAL SIGNS: Show temperature 97.7, blood pressure 105/65, pulse rate 74, respirations 18, pulse oxi metry 100% saturation. FIO2 had to be increased to 70%. LABORATORY DATA: Arterial blood gas today showed a pH 7.27, pCO2 of 65, pO2 101 on 70% oxygen with a rate of 18. His actual respiratory rate being 24. HEENT: Tracheal secretions are minimal to moderate. No gross bleeding seen. Tracheostomy tube is i n place. No air leak is seen coming around tracheostomy tube site. HEART: Regular rhythm. CHEST: Breath sounds diminished in both the lower lung [place] with a few intermittent rales and rhon chi. ABDOMEN: Soft. No distention seen, tolerating G-tube feedings. Bowel sounds are present. EXTREMITIES: Show no edema. He is paraplegic. The lab tests show WBC count 6300, hemoglobin 8.6, hematocrit 31.2, platelets are coming up gradually to 131,000. The chemistry panel shows glucose of 127, sodium 155, potassium 4.7, BUN 51, creatinine 1.07. Urine culture shows Kristina tropicalis. His medications include: 1. Fluconazole. 2. Xopenex. 3. Atrovent inhalation. 4. Pepcid. 5. Mucomyst inhalation. 6. Lovenox for DVT prophylaxis. 7. Ascorbic acid. 8. Gabapentin. 9. Seroquel. 10. Keppra. 11. Morphine sulfate as needed. 12. [place] as needed. IMPRESSION: 1. Status post septic shock. 2. Chronic ventilator dependent respiratory failure. 3. Chronic kidney disease with acute kidney injury, gradually improving. 4. Respiratory acidosis. 5. Chronic anemia. 6. History of seizure disorder. 7. History of nephrolithiasis. 8. History of bipolar disorder. 9. Paraplegia secondary to spinal cord injury. 10. Multiple decubiti. RECOMMENDATIONS: 1. Continue ventilator support. 2. Continue bronchodilator inhalation therapy. 3. Will obtain chest x-ray. 4. Continue tube feedings. 5. Continue GI prophylaxis. 6. Continue thrombosis prophylaxis. 7. Continue wound care. 8. Continue antibiotics as per the infectious disease systems development consultant. Dictated By: HUMBERTO PEREZ MD SR/QUE Conf#: [id number] DID#: [id number]
--- NOTE | 2018-09-14 14:53 | PN ---
Date/Time of Note Date/Time of Note DATE: 09/14/18 TIME: 14:52 Assessment/Plan VTE Prophylaxis Risk score (from Ns)>0 risk: 3 SCD applied (from Ns): Yes Pharmacological prophylaxis: LMWH Lines/Catheters IV Catheter Type (from Nrsg): Central Line Central line still needed: Yes Urinary Cath still in place: Yes Reason Cath still needed: skin wounds contaminated by urine Assessment/Plan Hospital Course 1) sepsis - IV antibiotics 2) hypotension - secondary to #1 - give IV fluids, on vasopressors 3) respiratory failure - continue on vent 4) seizure disorder - continue keppra Patient's anemia is worsening and needs to transfuse to maintain oxygenation. Result Diagram: 09/14/18 0641 09/14/18 0641 Results 24hrs Laboratory Tests Test 09/14/18 05:11 09/14/18 06:41 Blood Gas Specimen Source Blood arterial Arterial Blood Date Drawn 09/14/2018 5:45:40 AM Arterial Blood pH (Temp corrected) 7.271 *L Arterial Blood pCO2 (Temp correct) 65.6 H Arterial Blood pO2 (Temp corrected) 101.5 H Arterial Blood HCO3 29.5 H Arterial Blood Base Excess 1.3 Arterial Blood Oxygen Saturation 96.9 Julito Test ACCEPTAB Arterial Blood Gas Puncture Site Left Radial Arterial Blood Carboxyhemoglobin 0.3 Arterial Blood Methemoglobin 0.3 Blood Gas A-a O2 Differential 327.1 H Oxyhemoglobin Percent 96.3 Blood Gas Temperature 37.0 Blood Gas Respiration Rate 18.0 Blood Gas Actual Respiration Rate 24 Blood Gas Modality VENT - AC FiO2 70.0 Blood Gas Tidal Volume 500.0 Blood Gas Low PEEP Setting 0 Blood Gas Critical Value Read Back E MIRELLA RN Blood Gas Notified Whom UP Blood Gas Notified Time 09/14/2018 5:57:38 AM White Blood Count 6.3 # Red Blood Count 2.99 L Hemoglobin 8.6 L Hematocrit 31.2 L Mean Corpuscular Volume 104.3 H Mean Corpuscular Hemoglobin 28.8 L Mean Corpuscular Hemoglobin Concent 27.6 L Red Cell Distribution Width 19.8 H Platelet Count 131 #L Mean Platelet Volume 12.8 H Immature Granulocytes % 0.500 H Neutrophils % 85.3 H Segmented Neutrophils % (Manual) 68 Band Neutrophils % (Manual) 20 H Lymphocytes % 3.8 L Lymphocytes % (Manual) 7 L Reactive Lymphocytes % (Manual) 1 H Monocytes % 8.0 Monocytes % (Manual) 2 Eosinophils % 2.2 Eosinophils % (Manual) 2 Basophils % 0.2 Nucleated Red Blood Cells % 0.0 Immature Granulocytes # 0.030 Neutrophils # 5.4 Neutrophils # (Manual) 4.4 Band Neutrophils # 1.2 H Lymphocytes (Manual) 0.4 L Lymphocytes # 0.2 L Reactive Lymphocytes # 0.0 Monocytes # 0.5 Monocytes # (Manual) 0.1 L Eosinophils # 0.1 Basophils # 0.0 Nucleated Red Blood Cells # 0.0 Platelet Estimate NORMAL Giant Platelets 1 H Polychromasia 2+ Anisocytosis 1+ Microcytosis 1+ Sodium Level 155 H Potassium Level 4.7 Chloride Level 124 H Carbon Dioxide Level 31 Anion Gap 0 L Blood Urea Nitrogen 51 H Creatinine 1.07 Est Glomerular Filtrat Rate mL/min > 60 Glucose Level 127 Calcium Level 8.6 Subjective 24 Hr Interval Summary Free Text/Dictation Patient is comfortable, on vent via trach Exam/Review of Systems Exam Vitals Vital Signs Date Temp Pulse Resp B/P (MAP) Pulse Ox O2 O2 Flow FiO2 Time Delivery Rate 09/14/18 110 18 95 70 13:56 09/14/18 105/65 Mechanical 07:41 (78) Ventilator 09/14/18 97.7 04:00 Intake and Output 09/13/18 09/13/18 09/14/18 1515:00 23:00 07:00 IntakeIntake Total 610 ml OutputOutput Total 500 ml BalanceBalance 110 ml Constitutional: well developed Head: normocephalic, atraumatic Neck: supple Respiratory: diminished breath sounds Cardiovascular: regular rate and rhythm Gastrointestinal: soft, non-tender Extremities: normal pulses Results Results 24hrs Laboratory Tests Test 09/14/18 05:11 09/14/18 06:41 Blood Gas Specimen Source Blood arterial Arterial Blood Date Drawn 09/14/2018 5:45:40 AM Arterial Blood pH (Temp corrected) 7.271 *L Arterial Blood pCO2 (Temp correct) 65.6 H Arterial Blood pO2 (Temp corrected) 101.5 H Arterial Blood HCO3 29.5 H Arterial Blood Base Excess 1.3 Arterial Blood Oxygen Saturation 96.9 Julito Test ACCEPTAB Arterial Blood Gas Puncture Site Left Radial Arterial Blood Carboxyhemoglobin 0.3 Arterial Blood Methemoglobin 0.3 Blood Gas A-a O2 Differential 327.1 H Oxyhemoglobin Percent 96.3 Blood Gas Temperature 37.0 Blood Gas Respiration Rate 18.0 Blood Gas Actual Respiration Rate 24 Blood Gas Modality VENT - AC FiO2 70.0 Blood Gas Tidal Volume 500.0 Blood Gas Low PEEP Setting 0 Blood Gas Critical Value Read Back E MIRELLA RN Blood Gas Notified Whom UP Blood Gas Notified Time 09/14/2018 5:57:38 AM White Blood Count 6.3 # Red Blood Count 2.99 L Hemoglobin 8.6 L Hematocrit 31.2 L Mean Corpuscular Volume 104.3 H Mean Corpuscular Hemoglobin 28.8 L Mean Corpuscular Hemoglobin Concent 27.6 L Red Cell Distribution Width 19.8 H Platelet Count 131 #L Mean Platelet Volume 12.8 H Immature Granulocytes % 0.500 H Neutrophils % 85.3 H Segmented Neutrophils % (Manual) 68 Band Neutrophils % (Manual) 20 H Lymphocytes % 3.8 L Lymphocytes % (Manual) 7 L Reactive Lymphocytes % (Manual) 1 H Monocytes % 8.0 Monocytes % (Manual) 2 Eosinophils % 2.2 Eosinophils % (Manual) 2 Basophils % 0.2 Nucleated Red Blood Cells % 0.0 Immature Granulocytes # 0.030 Neutrophils # 5.4 Neutrophils # (Manual) 4.4 Band Neutrophils # 1.2 H Lymphocytes (Manual) 0.4 L Lymphocytes # 0.2 L Reactive Lymphocytes # 0.0 Monocytes # 0.5 Monocytes # (Manual) 0.1 L Eosinophils # 0.1 Basophils # 0.0 Nucleated Red Blood Cells # 0.0 Platelet Estimate NORMAL Giant Platelets 1 H Polychromasia 2+ Anisocytosis 1+ Microcytosis 1+ Sodium Level 155 H Potassium Level 4.7 Chloride Level 124 H Carbon Dioxide Level 31 Anion Gap 0 L Blood Urea Nitrogen 51 H Creatinine 1.07 Est Glomerular Filtrat Rate mL/min > 60 Glucose Level 127 Calcium Level 8.6 Medications Medication Current Medications Ondansetron HCl (Zofran Inj) 4 mg Q6H PRN IV NAUSEA AND/OR VOMITING; Start 09/02/18 at 13:30 Acetaminophen (Tylenol Liquid) 650 mg Q4H PRN GTB PAIN LEVEL 1-3 OR FEVER Last administered on 09/14/18at 01:49; Admin Dose 650 MG; Start 09/02/18 at 13:30 Morphine Sulfate (morphine) 2 mg Q4H PRN IV PAIN LEVEL 7-10 Last administered on 09/13/18 21:20; Admin Dose 2 MG; Start 09/02/18 at 13:30 Enoxaparin Sodium (Lovenox) 30 mg DAILY SC Last administered on 09/14/18 09:22; Admin Dose 30 MG; Start 09/03/18 at 09:00 Ascorbic Acid (Vitamin C) 500 mg DAILY GTB Last administered on 09/14/18 09:14; Admin Dose 500 MG; Start 09/03/18 at 09:00 Diphenhydramine HCl (Benadryl) 25 mg QHS PRN GTB ITCHING; Start 09/02/18 at 13:30 Gabapentin (Neurontin Liquid) 300 mg BID GTB Last administered on 09/14/18 09:14; Admin Dose 300 MG; Start 09/02/18 at 21:00 Acetaminophen/ Hydrocodone Bitart ([place] (5/325)) 1 tab Q4H WHILE AWAKE PRN GTB SEVERE PAIN LEVEL 7-10 Last administered on 09/06/18 08:52; Admin Dose 1 TAB; Start 09/02/18 at 13:30 Quetiapine Fumarate (Seroquel) 75 mg BID GTB Last administered on 09/14/18 09:14; Admin Dose 75 MG; Start 09/02/18 at 21:00 Zinc Sulfate (Zinc Sulfate) 220 mg DAILY GTB Last administered on 09/14/18 09:14; Admin Dose 220 MG; Start 09/03/18 at 09:00 Levetiracetam (Keppra Liquid) 500 mg BID GTB Last administered on 09/14/18 09:14; Admin Dose 500 MG; Start 09/02/18 at 21:00 Albuterol (Ventolin Hfa) 2 puff Q4H RESP THERAPY PRN INH SHORTNESS OF BREATH Last administered on 09/04/18 15:03; Admin Dose 2 PUFF; Start 09/03/18 at 12:00 Acetylcysteine (Mucomyst) 1 ml Q6H RESP THERAPY NEB Last administered on 09/14/18 07:52; Admin Dose 1 ML; Start 09/05/18 at 10:00 Famotidine (Pepcid) 20 mg HS GTB Last administered on 09/13/18 22:05; Admin Dose 20 MG; Start 09/06/18 at 21:00 Levalbuterol (Xopenex Neb) 0.63 mg Q6H RESP THERAPY HHN Last administered on 09/14/18at 07:52; Admin Dose 0.63 MG; Start 09/10/18 at 14:00 Ipratropium [place] (Atrovent 0.02% (Neb)) 0.5 mg Q6H RESP THERAPY HHN Last administered on 09/14/18at 07:52; Admin Dose 0.5 MG; Start 09/10/18 at 14:00 Fluconazole (Diflucan) 100 mg DAILY PO Last administered on 09/14/18at 09:14; Admin Dose 100 MG; Start 09/12/18 at 09:00 DANAY MUIR Sep 14, 2018 14:53
--- NOTE | 2018-09-14 14:57 | CONS ---
Assessment/Plan Assessment/Plan Hospital Course (Demo Recall) No acute events, looks comfortable, no fevers MICROBIOLOGY: Blood cultures remain negative. Urine culture growing yeast. Stool for C. difficile came back negative ANTIMICROBIALS: Diflucan INDWELLINGS: Trach, PEG, rectal tube and suprapubic catheter. PHYSICAL EXAMINATION: GENERAL: This is a chronically ill-appearing, wasted, middle-aged man who is in no distress. HEENT: Head atraumatic, normocephalic. NECK: Supple. Tracheostomy present. CHEST: Rise symmetrical. Breath sounds diminished to bases. HEART: S1, S2. ABDOMEN: Soft, bowel sounds hypoactive. EXTREMITIES: Contractured. ASSESSMENT: 1. S/p severe sepsis with shock. 2. Ongoing diarrhea, rule out Clostridium difficile colitis. 3. Recurrent urinary tract infection. 4. Questionable pneumonia. 5. Quadriplegia. 6. Chronic kidney disease status post nephrectomy. 7. ALLERGIES: Tetracyclines. PLAN: Stable, continue present care Consultation Date/Type/Reason Admit Date/Time Sep 02, 2018 at 16:44 Initial Consult Date Type of Consult id Date/Time of Note DATE: 09/14/18 TIME: 14:56 Exam/Review of Systems Exam Vitals Vital Signs Date Temp Pulse Resp B/P (MAP) Pulse Ox O2 O2 Flow FiO2 Time Delivery Rate 09/14/18 110 18 95 70 13:56 09/14/18 105/65 Mechanical 07:41 (78) Ventilator 09/14/18 97.7 04:00 Intake and Output 09/13/18 09/13/18 09/14/18 1515:00 23:00 07:00 IntakeIntake Total 610 ml OutputOutput Total 500 ml BalanceBalance 110 ml Results Result Diagram: 09/14/18 0641 09/14/18 0641 Results 24hrs Laboratory Tests Test 09/14/18 05:11 09/14/18 06:41 Blood Gas Specimen Source Blood arterial Arterial Blood Date Drawn 09/14/2018 5:45:40 AM Arterial Blood pH (Temp corrected) 7.271 *L Arterial Blood pCO2 (Temp correct) 65.6 H Arterial Blood pO2 (Temp corrected) 101.5 H Arterial Blood HCO3 29.5 H Arterial Blood Base Excess 1.3 Arterial Blood Oxygen Saturation 96.9 Julito Test ACCEPTAB Arterial Blood Gas Puncture Site Left Radial Arterial Blood Carboxyhemoglobin 0.3 Arterial Blood Methemoglobin 0.3 Blood Gas A-a O2 Differential 327.1 H Oxyhemoglobin Percent 96.3 Blood Gas Temperature 37.0 Blood Gas Respiration Rate 18.0 Blood Gas Actual Respiration Rate 24 Blood Gas Modality VENT - AC FiO2 70.0 Blood Gas Tidal Volume 500.0 Blood Gas Low PEEP Setting 0 Blood Gas Critical Value Read Back E MIRELLA RN Blood Gas Notified Whom UP Blood Gas Notified Time 09/14/2018 5:57:38 AM White Blood Count 6.3 # Red Blood Count 2.99 L Hemoglobin 8.6 L Hematocrit 31.2 L Mean Corpuscular Volume 104.3 H Mean Corpuscular Hemoglobin 28.8 L Mean Corpuscular Hemoglobin Concent 27.6 L Red Cell Distribution Width 19.8 H Platelet Count 131 #L Mean Platelet Volume 12.8 H Immature Granulocytes % 0.500 H Neutrophils % 85.3 H Segmented Neutrophils % (Manual) 68 Band Neutrophils % (Manual) 20 H Lymphocytes % 3.8 L Lymphocytes % (Manual) 7 L Reactive Lymphocytes % (Manual) 1 H Monocytes % 8.0 Monocytes % (Manual) 2 Eosinophils % 2.2 Eosinophils % (Manual) 2 Basophils % 0.2 Nucleated Red Blood Cells % 0.0 Immature Granulocytes # 0.030 Neutrophils # 5.4 Neutrophils # (Manual) 4.4 Band Neutrophils # 1.2 H Lymphocytes (Manual) 0.4 L Lymphocytes # 0.2 L Reactive Lymphocytes # 0.0 Monocytes # 0.5 Monocytes # (Manual) 0.1 L Eosinophils # 0.1 Basophils # 0.0 Nucleated Red Blood Cells # 0.0 Platelet Estimate NORMAL Giant Platelets 1 H Polychromasia 2+ Anisocytosis 1+ Microcytosis 1+ Sodium Level 155 H Potassium Level 4.7 Chloride Level 124 H Carbon Dioxide Level 31 Anion Gap 0 L Blood Urea Nitrogen 51 H Creatinine 1.07 Est Glomerular Filtrat Rate mL/min > 60 Glucose Level 127 Calcium Level 8.6 Medications Medication Current Medications Ondansetron HCl (Zofran Inj) 4 mg Q6H PRN IV NAUSEA AND/OR VOMITING; Start 09/02/18 at 13:30 Acetaminophen (Tylenol Liquid) 650 mg Q4H PRN GTB PAIN LEVEL 1-3 OR FEVER Last administered on 09/14/18at 01:49; Admin Dose 650 MG; Start 09/02/18 at 13:30 Morphine Sulfate (morphine) 2 mg Q4H PRN IV PAIN LEVEL 7-10 Last administered on 09/13/18 21:20; Admin Dose 2 MG; Start 09/02/18 at 13:30 Enoxaparin Sodium (Lovenox) 30 mg DAILY SC Last administered on 09/14/18 09:22; Admin Dose 30 MG; Start 09/03/18 at 09:00 Ascorbic Acid (Vitamin C) 500 mg DAILY GTB Last administered on 09/14/18 09:14; Admin Dose 500 MG; Start 09/03/18 at 09:00 Diphenhydramine HCl (Benadryl) 25 mg QHS PRN GTB ITCHING; Start 09/02/18 at 13:30 Gabapentin (Neurontin Liquid) 300 mg BID GTB Last administered on 09/14/18 09:14; Admin Dose 300 MG; Start 09/02/18 at 21:00 Acetaminophen/ Hydrocodone Bitart ([place] (5/325)) 1 tab Q4H WHILE AWAKE PRN GTB SEVERE PAIN LEVEL 7-10 Last administered on 09/06/18 08:52; Admin Dose 1 TAB; Start 09/02/18 at 13:30 Quetiapine Fumarate (Seroquel) 75 mg BID GTB Last administered on 09/14/18 09:14; Admin Dose 75 MG; Start 09/02/18 at 21:00 Zinc Sulfate (Zinc Sulfate) 220 mg DAILY GTB Last administered on 09/14/18 09:14; Admin Dose 220 MG; Start 09/03/18 at 09:00 Levetiracetam (Keppra Liquid) 500 mg BID GTB Last administered on 09/14/18 09:14; Admin Dose 500 MG; Start 09/02/18 at 21:00 Albuterol (Ventolin Hfa) 2 puff Q4H RESP THERAPY PRN INH SHORTNESS OF BREATH [place] [facility] administered on 09/04/18 15:03; Admin Dose 2 PUFF; Start 09/03/18 at 12:00 Acetylcysteine (Mucomyst) 1 ml Q6H RESP THERAPY NEB Last administered on 09/14/18 07:52; Admin Dose 1 ML; Start 09/05/18 at 10:00 Famotidine (Pepcid) 20 mg HS GTB Last administered on 09/13/18 22:05; Admin Dose 20 MG; Start 09/06/18 at 21:00 Levalbuterol (Xopenex Neb) 0.63 mg Q6H RESP THERAPY HHN Last administered on 09/14/18 07:52; Admin Dose 0.63 MG; Start 09/10/18 at 14:00 Ipratropium [place] (Atrovent 0.02% (Neb)) 0.5 mg Q6H RESP THERAPY HHN Last administered on 09/14/18 07:52; Admin Dose 0.5 MG; Start 09/10/18 at 14:00 Fluconazole (Diflucan) 100 mg DAILY PO Last administered on 09/14/18 09:14; Admin Dose 100 MG; Start 09/12/18 at 09:00 REGINALDO BOND NP Sep 14, 2018 14:57
[2018-09-14] MEDS ORDERED: SOD CHLORIDE 0.9% 500 ML IV ONE (16:00)
[2018-09-14] MEDS ORDERED: NORepinephrine 8MG/250 ML (PMX 250 ML ONE (19:20)
[2018-09-14] MEDS ORDERED: NORepinephrine 8MG/250 ML (PMX 250 ML IV STA ×2 (19:44→19:52)
[2018-09-14] MEDS ORDERED: SOD CHLORIDE 0.9% 1,000 ML IV SCH (20:00)
[2018-09-14] MEDS: FAMOTIDINE 20 MG TAB GTB SCH (21:21)
[2018-09-14] MEDS ORDERED: ALBUMIN HUMAN 25% 100 ML IV STA (21:51)
[2018-09-14] MEDS ORDERED: NA POLYST SULFON 15 GM/60 ML BTL GTB ONE (23:30)
[2018-09-14] MEDS: SOD CHLORIDE 0.45% 1,000 ML IV SCH (23:40)
[2018-09-14] MEDS: PHENYLephrine 20MG IN 250 ML 250 ML IV SCH (23:46)
[2018-09-14] MEDS: PIPER-TAZO 3.375 GM IV (PMX) 100 ML IVPB SCH (23:52)
[2018-09-15] VITALS (58 sets, daily range): BP systolic 55–100; BP diastolic 24–78; PULSE 0–168; RESP 0–68
[2018-09-15] MEDS: NORepinephrine 8MG/250 ML (PMX 250 ML IV SCH ×3 (00:14→09:26)
[2018-09-15] MEDS: ACETAMINOPHEN 650MG/20.3ML CUP GTB PRN ×2 (00:15→12:33)
[2018-09-15] MEDS: ACETYLCYSTEINE 20% 4 ML VIAL NEB SCH ×2 (01:05→08:45)
[2018-09-15] MEDS: IPRATROPIUM (NEB) 0.5 MG/2.5 ML AMP HHN SCH ×2 (01:05→08:44)
[2018-09-15] MEDS: LEVALBUTEROL (NEB) 0.63 MG/3 ML AMP HHN SCH ×2 (01:05→08:44)
[2018-09-15] MEDS: PHENYLephrine 20MG IN 250 ML 250 ML IV SCH (01:53)
[2018-09-15] MEDS: PHENYLephrine 40 MG in DEXTROSE 5% 246 ML IV SCH ×3 (03:32→08:24)
[2018-09-15] MEDS: PIPER-TAZO 3.375 GM IV (PMX) 100 ML IVPB SCH ×2 (05:18→12:32)
[2018-09-15] MEDS ORDERED: EPINEPHrine 0.1 MG/ML SYG ONE ×2 (06:00→13:23)
[2018-09-15] MEDS: SOD CHLORIDE 0.45% 1,000 ML IV SCH (06:48)
[2018-09-15] MEDS: QUETIAPINE 25 MG TAB GTB SCH (09:00)
[2018-09-15] MEDS ORDERED: VASOPRESSIN 60 UNIT in DEXTROSE 5% 57 ML IV STA (09:08)
[2018-09-15] MEDS: GABAPENTIN (50 MG/ML PO SYG) GTB SCH (09:11)
[2018-09-15] MEDS: ZINC SULFATE 220 MG CAP GTB SCH (09:11)
[2018-09-15] MEDS: LEVETIRACETAM (100 MG/ML) 5ML CUP GTB SCH (09:11)
[2018-09-15] MEDS: FLUCONAZOLE 100 MG TAB PO SCH (09:11)
[2018-09-15] MEDS: ASCORBIC ACID 500 MG TAB GTB SCH (09:11)
[2018-09-15] MEDS: ENOXAPARIN 30 MG/0.3 ML SYG SC SCH (09:15)
[2018-09-15] MEDS ORDERED: metroNIDAZOLE 500 MG TAB PO SCH (09:30)
[2018-09-15] MEDS ORDERED: VANCOMYCIN IV PER PHARMACY XX SCH (09:30)
[2018-09-15] MEDS ORDERED: PHENYLephrine 80 MG in DEXTROSE 5% 242 ML IV SCH (10:30)
[2018-09-15] MEDS ORDERED: VASOPRESSIN 60 UNIT in DEXTROSE 5% 57 ML IV SCH (11:30)
--- NOTE | 2018-09-15 11:49 | PN ---
Date/Time of Note Date/Time of Note DATE: 09/15/18 TIME: 11:48 Assessment/Plan VTE Prophylaxis Risk score (from Ns)>0 risk: 8 SCD applied (from Ns): Yes Pharmacological prophylaxis: LMWH Lines/Catheters IV Catheter Type (from [facility]): Central Line Central line still needed: Yes Urinary Cath still in place: Yes Reason Cath still needed: skin wounds contaminated by urine Assessment/Plan Hospital Course 1) sepsis - IV antibiotics 2) hypotension - secondary to #1 - give IV fluids, on vasopressors 3) respiratory failure - continue on vent 4) seizure disorder - continue keppra Patient's anemia is worsening and needs to transfuse to maintain oxygenation. Result Diagram: 09/14/18219909/14/182199 Results 24hrs Laboratory Tests Test 09/14/18 22:00 09/15/18 06:00 09/15/18 10:00 White Blood Count 30.4 #H Red Blood Count 3.35 L Hemoglobin 9.7 L Hematocrit 35.7 L Mean Corpuscular 106.6 H Volume Mean Corpuscular 29.0 Hemoglobin Mean Corpuscular 27.2 L Hemoglobin Concent Red Cell Distribution 20.1 H Width Platelet Count 347 # Mean Platelet Volume 12.8 H Immature Granulocytes 0.800 H % Neutrophils % Segmented Neutrophils 62 % (Manual) Band Neutrophils % 21 H (Manual) Lymphocytes % Lymphocytes % 7 L (Manual) Reactive Lymphocytes 1 H % (Manual) Monocytes % Monocytes % (Manual) 7 Eosinophils % Eosinophils % 2 (Manual) Basophils % Nucleated Red Blood 0.1 H Cells % Immature Granulocytes 0.240 H # Neutrophils # Neutrophils # 20.8 H (Manual) Band Neutrophils # 6.3 H Lymphocytes (Manual) 2.1 Lymphocytes # Reactive Lymphocytes 0.3 H # Monocytes # Monocytes # (Manual) 2.1 H Eosinophils # Basophils # Nucleated Red Blood Cells # Platelet Estimate NORMAL Giant Platelets 6 H Polychromasia 1+ Poikilocytosis 3+ Anisocytosis 1+ Microcytosis 1+ Sodium Level 154 H Potassium Level 5.1 Chloride Level 122 H Carbon Dioxide Level 29 Anion Gap 3 L Blood Urea Nitrogen 61 H Creatinine 1.43 H Est Glomerular 54 L Filtrat Rate mL/min Glucose Level 132 Lactic Acid Level 1.9 Calcium Level 8.5 Blood Gas Specimen Blood arterial Blood arterial Source Arterial Blood Date 09/15/2018 5:20:52 AM 09/15/2018 11:00:52 AM Drawn Arterial Blood pH 7.074 *L 7.106 *L (Temp corrected) Arterial Blood pCO2 81.2 *H 75.0 H (Temp correct) Arterial Blood pO2 100.7 H 53.3 *L (Temp corrected) Arterial Blood HCO3 23.2 23.1 Arterial Blood Base -8.0 L -7.2 L Excess Arterial Blood 96.4 84.5 L Oxygen Saturation Julito Test ACCEPTAB N/A Arterial Blood Gas Right Radial Right Brachial Puncture Site Arterial 0.1 0 Blood Carboxyhemoglob in Arterial Blood 0.6 0.3 Methemoglobin Blood Gas A-a O2 531.1 H 584.7 H Differential Oxyhemoglobin Percent 95.7 84.2 L Blood Gas Temperature 37.0 37.0 Blood Gas Respiration 18.0 Rate Blood Gas Actual 18 24 Respiration Rate Blood Gas Modality VENT - AC VENT - AC FiO2 100.0 100.0 Blood Gas Tidal 500.0 550.0 Volume Blood Gas Low PEEP 5.0 Setting Blood Gas Critical ARIA. Oh ALEXANDER RN Value Read Back Blood Gas Notified LT [place] Whom Blood Gas Notified 09/15/2018 5:51:12 AM 09/15/2018 11:22:05 AM Time Subjective 24 Hr Interval Summary Free Text/Dictation Patient deteriorated overnight, was transferred to ICU because of hypotension Exam/Review of Systems Exam Vitals Vital Signs Date Temp Pulse Resp B/P (MAP) Pulse Ox O2 O2 Flow FiO2 Time Delivery Rate 09/15/18 100.6 126 24 74/56 (62) 91 [place] 07:45 l Ventilato r 09/15/18 100 06:19 Intake and Output 09/14/18 09/14/18 09/15/18 1515:00 23:00 07:00 IntakeIntake Total 520 ml 1410 ml OutputOutput Total 300 ml BalanceBalance 220 ml 1410 ml Constitutional: well developed Head: normocephalic, atraumatic Neck: supple Respiratory: diminished breath sounds Cardiovascular: regular rate and rhythm Gastrointestinal: soft, non-tender Extremities: normal pulses Results Results 24hrs Laboratory Tests Test 09/14/18 22:00 09/15/18 06:00 09/15/18 10:00 White Blood Count 30.4 #H Red Blood Count 3.35 L Hemoglobin 9.7 L Hematocrit 35.7 L Mean Corpuscular 106.6 H Volume Mean Corpuscular 29.0 Hemoglobin Mean Corpuscular 27.2 L Hemoglobin Concent Red Cell Distribution 20.1 H Width Platelet Count 347 # Mean Platelet Volume 12.8 H Immature Granulocytes 0.800 H % Neutrophils % Segmented Neutrophils 62 % (Manual) Band Neutrophils % 21 H (Manual) Lymphocytes % Lymphocytes % 7 L (Manual) Reactive Lymphocytes 1 H % (Manual) Monocytes % Monocytes % (Manual) 7 Eosinophils % Eosinophils % 2 (Manual) Basophils % Nucleated Red Blood 0.1 H Cells % Immature Granulocytes 0.240 H # Neutrophils # Neutrophils # 20.8 H (Manual) Band Neutrophils # 6.3 H Lymphocytes (Manual) 2.1 Lymphocytes # Reactive Lymphocytes 0.3 H # Monocytes # Monocytes # (Manual) 2.1 H Eosinophils # Basophils # Nucleated Red Blood Cells # Platelet Estimate NORMAL Giant Platelets 6 H Polychromasia 1+ Poikilocytosis 3+ Anisocytosis 1+ Microcytosis 1+ Sodium Level 154 H Potassium Level 5.1 Chloride Level 122 H Carbon Dioxide Level 29 Anion Gap 3 L Blood Urea Nitrogen 61 H Creatinine 1.43 H Est Glomerular 54 L Filtrat Rate mL/min Glucose Level 132 Lactic Acid Level 1.9 Calcium Level 8.5 Blood Gas Specimen Blood arterial Blood arterial Source Arterial Blood Date 09/15/2018 5:20:52 AM 09/15/2018 11:00:52 AM Drawn Arterial Blood pH 7.074 *L 7.106 *L (Temp corrected) Arterial Blood pCO2 81.2 *H 75.0 H (Temp correct) Arterial Blood pO2 100.7 H 53.3 *L (Temp corrected) Arterial Blood HCO3 23.2 23.1 Arterial Blood Base -8.0 L -7.2 L Excess Arterial Blood 96.4 84.5 L Oxygen Saturation Julito Test ACCEPTAB N/A Arterial Blood Gas Right Radial Right Brachial Puncture Site Arterial 0.1 0 Blood Carboxyhemoglob in Arterial Blood 0.6 0.3 Methemoglobin Blood Gas A-a O2 531.1 H 584.7 H Differential Oxyhemoglobin Percent 95.7 84.2 L Blood Gas Temperature 37.0 37.0 Blood Gas Respiration 18.0 Rate Blood Gas Actual 18 24 Respiration Rate Blood Gas Modality VENT - AC VENT - AC FiO2 100.0 100.0 Blood Gas Tidal 500.0 550.0 Volume Blood Gas Low PEEP 5.0 Setting Blood Gas Critical ARIA. Oh ALEXANDER RN Value Read Back Blood Gas Notified LT [place] Whom Blood Gas Notified 09/15/2018 5:51:12 AM 09/15/2018 11:22:05 AM Time Medications Medication Current Medications Ondansetron HCl (Zofran Inj) 4 mg Q6H PRN IV NAUSEA AND/OR VOMITING; Start 09/02/18 at 13:30 Acetaminophen (Tylenol Liquid) 650 mg Q4H PRN GTB PAIN LEVEL 1-3 OR FEVER Last administered on 09/15/18 00:15; Admin Dose 650 MG; Start 09/02/18 at 13:30 Morphine Sulfate (morphine) 2 mg Q4H PRN IV PAIN LEVEL 7-10 Last administered on 09/13/18 21:20; Admin Dose 2 MG; Start 09/02/18 at 13:30 Enoxaparin Sodium (Lovenox) 30 mg DAILY SC Last administered on 09/15/18 09:15; Admin Dose 30 MG; Start 09/03/18 at 09:00 Ascorbic Acid (Vitamin C) 500 mg DAILY GTB Last administered on 09/15/18 09:11; Admin Dose 500 MG; Start 09/03/18 at 09:00 Diphenhydramine HCl (Benadryl) 25 mg QHS PRN GTB ITCHING; Start 09/02/18 at 13:30 Gabapentin (Neurontin Liquid) 300 mg BID GTB Last administered on 09/15/18 09:11; Admin Dose 300 MG; Start 09/02/18 at 21:00 Acetaminophen/ Hydrocodone Bitart ([place] (5/325)) 1 tab Q4H WHILE AWAKE PRN GTB SEVERE PAIN LEVEL 7-10 Last administered on 09/06/18 08:52; Admin Dose 1 TAB; Start 09/02/18 at 13:30 Quetiapine Fumarate (Seroquel) 75 mg BID GTB Last administered on 09/14/18 09:14; Admin Dose 75 MG; Start 09/02/18 at 21:00 Zinc Sulfate (Zinc Sulfate) 220 mg DAILY GTB Last administered on 09/15/18 09:11; Admin Dose 220 MG; Start 09/03/18 at 09:00 Levetiracetam (Keppra Liquid) 500 mg BID GTB Last administered on 09/15/18 09:11; Admin Dose 500 MG; Start 09/02/18 at 21:00 Albuterol (Ventolin Hfa) 2 puff Q4H RESP THERAPY PRN INH SHORTNESS OF BREATH Last administered on 09/04/18 15:03; Admin Dose 2 PUFF; Start 09/03/18 at 12:00 Acetylcysteine (Mucomyst) 1 ml Q6H RESP THERAPY NEB Last administered on 09/06 08:45; Admin Dose 1 ML; Start 09/05/18 at 10:00 Famotidine (Pepcid) 20 mg HS GTB Last administered on 09/14/18 21:21; Admin Dose 20 MG; Start 09/06/18 at 21:00 Levalbuterol (Xopenex Neb) 0.63 mg Q6H RESP THERAPY HHN Last administered on 09/15/18 08:44; Admin Dose 0.63 MG; Start 09/10/18 at 14:00 Ipratropium [place] (Atrovent 0.02% (Neb)) 0.5 mg Q6H RESP THERAPY HHN Last administered on 09/15/18 08:44; Admin Dose 0.5 MG; Start 09/10/18 at 14:00 Fluconazole (Diflucan) 100 mg DAILY PO Last administered on 09/15/18 09:11; Admin Dose 100 MG; Start 09/12/18 at 09:00 Piperacillin Sod/ Tazobactam Sod 100 ml @ 200 mls/hr Q6 IVPB Last administered on 09/15/18 05:18; Admin Dose 200 MLS/HR; Start 09/15/18 at 00:00 Sodium Chloride 1,000 ml @ 125 mls/hr Q8H IV Last administered on 09/15/18 06:48; Admin Dose 125 MLS/HR; Start 09/14/18 at 23:30 Norepinephrine 250 ml @ 1.875 mls/ hr TITRATE IV Last administered on 09/15/18 09:26; Admin Dose 56.25 MLS/HR; Start 09/15/18 at 00:00 Vancomycin HCl (Vanco Iv Per Pharmacy) VANCOMYCIN PER PHARMACY PER PROTOCOL XX ; Start 09/15/18 at 09:30; Status UNV Metronidazole (Flagyl) 500 mg Q8 PO ; Start 09/15/18 at 09:30 Phenylephrine HCl 80 mg/Dextrose 250 ml @ 18.75 mls/ hr TITRATE IV ; Start 09/15/18 at 10:30 Vasopressin 60 unit/Dextrose 60 ml @ 0 mls/hr Q12H IV ; Start 09/15/18 at 11:30 DANAY MUIR Sep 15, 2018 11:49
[2018-09-15] MEDS ORDERED: VANCOMYCIN 1 GM 250 ML IVPB SCH (12:00)
--- NOTE | 2018-09-15 13:46 | PN ---
DATE: 09/15/2018 SUBJECTIVE: The patient was transferred to ICU due to low blood pressure with blood pressure droppin g into the 50S. Right now he is on high dose Levophed, high dose Ozzy-Synephrine and also on vasopres sin. Still, his blood pressure is running around the 70s systolic. He is also tachycardic with a he art rate in the 130, showing sinus tachycardia on the bus monitor. His temperature has gone up t o 102.6. He was having a large leak around the tracheostomy tube as a tracheostomy stoma has been big, with tr acheostomy tube ventilation and repositioning, leak was not corrected, he was desaturating with satur ation in the 70s and 80s. The Emergency Room physician removed the tracheostomy tube and replaced wit h a long tracheostomy tube along endotracheal tube. Right now, the patient is unresponsive. He makes no eye contact, does not follow when spoken to. Th e breath sounds are heard bilaterally, diminished in both the lower lung tierney at the lung bases ant erolaterally; could not be auscultated. HEART: Sinus tachycardia. ABDOMEN: Soft. Bowel sounds are present. No distention seen. EXTREMITIES: Show no edema. He is paraplegic. The chest x-ray taken yesterday is reported to show cardiovascular silhouette unremarkable. Diffusel y increased interstitial markings in both lung tierney, suspicious for interstitial edema or pneumonia with a patch of airspace opacification in the left mid to lower lung zone, small bilateral pleural f luid accumulations are also seen. A repeat chest x-ray ordered, following the tracheostomy tube change. The report is awaited. LABORATORY DATA: Show the arterial blood gases done this morning shows a pH 7.11, pCO2 63, pO2 51 on 100% oxygen with a PEEP of 10 and a rate of 24. Acidosis, mostly respiratory with a metabolic compo nent. In addition, the CBC showed a marked leukocytosis with a WBC of 30,400, hemoglobin 9.7, hemato crit 35.7, platelets are now within normal limits at 347,000. The chemistry panel showed sodium 154, potassium 5.1, bicarbonate of 29, BUN 61, creatinine 1.43, glucose 132. MEDICATIONS: 1. Vancomycin. 2. Flagyl. 3. Zosyn. IMPRESSION: 1. Septic shock. 2. Chronic ventilator dependent respiratory failure. 3. Healthcare-acquired pneumonia. 4. Chronic kidney disease with acute kidney injury. 5. Acute respiratory acidosis. 6. Chronic anemia. 7. History of seizure disorder. 8. History of nephrolithiasis. 9. History of bipolar disorder. 10. Paraplegia secondary to spinal cord injury. 11. Multiple decubiti. RECOMMENDATIONS: 1. Continue ventilator support. Blood gas to be followed. 2. Continue antibiotics as per the infectious disease home care consultant's recommendations. 3. Continue ASA pressor drugs to maintain the blood pressure. 4. Continue supportive therapy. 5. With the progressive deterioration of patient's condition, prognosis is guarded. Dictated By: HUMBERTO PEREZ MD SR/NTS Conf#: [id number] DID#: [id number] CC: DANAY MUIR MD;*End*
--- NOTE | 2018-09-15 13:47 | EN ---
Date/Time of Note Date/Time of Note DATE: 09/15/18 TIME: 13:20 ER Progress Note History: Patient is a 43-year-old male with a chronic trach vent complicated by enlargement of tracheostomy with air leakage and septic shock with unclear source. Patient is on vasopressin, norepinephrine, dopamine. Patient patient began to desaturate to the low 80s. ER was called to come evaluate airway. Review of Systems: Complete review of systems difficult to obtain 2/2 patients condition. Medications: PMH: Tracheostomy with large ostomy leakage PSH: Tracheostomy Exam (ja): VITAL SIGNS: SaO2 80 Const: Not responding Head: Atraumatic Eyes: Normal Conjunctiva ENT: Normal External Ears, Nose and Mouth. Large o tracheostomy, 8 trach with balloon at edge of ostomy and air leakage Neck: Full range of motion. No meningismus. Resp: Bilateral breath sounds Cardio: Tachycardic Abd: Soft, non tender, non distended. Normal bowel sounds neuro-not responding Data: Hypoxic. ABG with pH 7.1 uptrending from prior Course: I was called to the floor to treat . I discussed the patients condition at bedside with patient's nurse. Medical Decision Making: Patient with significant air leakage around tracheostomy secondary to trach balloon not low enough past enlarged stoma decision was made to exchange tube with endotracheal tube through tracheostomy. Endotracheal Intubation by me: Pre assessment performed. See preceding note for details. Pre-oxygenation performed with 100% oxygen RSI: Patient is unresponsive no medication was needed A bougie was placed through the trach, trach was removed and a 8 oh ET tube was threaded over the bougie. Patient's saturations increased to high 80s and low 90s Intubation confirmed by colorimetric CO2, equal breath sounds, quiet over the stomach. Chest X-ray 1V Interpreted by me: [0] cm above the bogdan ET tube. Normal soft tissue, No pneumothorax. RT was notified to pull back on the ET tube by 1 cm. MELIDA ACEVES MD Sep 15, 2018 13:47
--- NOTE | 2018-09-15 13:59 | EN ---
Date/Time of Note Date/Time of Note DATE: 09/15/18 TIME: 13:54 ER Progress Note History: Patient admitted to ICU for septic shock with trach and vent recent airway issues complicated by widening of the stoma tracheostomy was recently replaced with endotracheal tube with confirmed placement on chest x-ray patient was maxed on 3 vasopressors and still hypotensive and tachycardic patient subsequently went into PEA arrest. CODE BLUE was called. Review of Systems: Complete review of systems difficult to obtain 2/2 patients condition. Medications: PMH: Septic shock PSH: Tracheostomy Exam (ja): Const: Unresponsive Head: Atraumatic Eyes: Normal Conjunctiva ENT: Normal External Ears, Nose and Mouth. The tracheal tube in place bilateral breath sounds Neck: Full range of motion. No meningismus. Resp: Non-spontaneous but bilateral breath sounds with mechanical respirations Cardio: No pulse Abd: Soft, non tender, non distended. Normal bowel sounds Skin: No petechia or rashes Course: I was called to the floor to treat . I discussed the patients condition at bedside with patient's nurse. Patient was in PEA arrest 1 mg of epi was given prior to my arrival. Cardiopulmonary Resuscitation by me: See code documentation for specific details. ACLS and BLS were performed with high quality chest compressions and minimal interruptions. Reversible causes were assessed and treated After 2 rounds of epinephrine, and 1 g of calcium chloride patient regained pulses. Blood pressure was systolic 100, pulse ox was high 80s low 90s. Blood work was drawn pending results Medical Decision Making: Patient went to PEA arrest possibly secondary to hypoxia or worsening septic shock metabolic acidosis. Unclear at this time. Patient is on multiple vasopressors and max dose. Labs pending. Airway is secured. MELIDA ACEVES MD Sep 15, 2018 13:59
--- NOTE | 2018-09-15 14:02 | EN ---
Date/Time of Note Date/Time of Note DATE: 09/15/18 TIME: 13:59 ER Progress Note History: Patient admitted to ICU for septic shock with trach and vent recent airway issues complicated by widening of the stoma tracheostomy was recently replaced with endotracheal tube with confirmed placement on chest x-ray patient was maxed on 3 vasopressors and still hypotensive and tachycardic patient subsequently went into PEA arrest. Rosc was achieved however short time after CODE BLUE was called again. Prior to my arrival 1 mg of epi and CPR was already initiated Review of Systems: Complete review of systems difficult to obtain 2/2 patients condition. Medications: PMH: Septic shock PSH: Tracheostomy Exam (ja): Const: Unresponsive Head: Atraumatic Eyes: Normal Conjunctiva ENT: Normal External Ears, Nose and Mouth. The tracheal tube in place bilateral breath sounds Neck: Full range of motion. No meningismus. Resp: Non-spontaneous but bilateral breath sounds with mechanical respirations Cardio: No pulse Abd: Soft, non tender, non distended. Normal bowel sounds Skin: No petechia or rashes Course: I was called to the floor to treat . I discussed the patients condition at bedside with patient's nurse. Upon my arrival pulse check was performed and patient had regained pulses and had systolic blood pressure low 100s. Pulse ox was again in the high 80s to 90s Discussion had with patient's nurse, and primary doctor Dr. Schulz about the fu tility of repeat CPR given patient's condition. Patient is in is currently on multiple max dose vasopressors persistent hypotension and tachycardia and persistent hypoxia despite secured airway with no evidence of reversible pathology at this time. Patient is critically ill. [place] decision between patient is care team, Dr. Schulz and myself was to not escalate care if patient were to further decompensate due to the medical futility at this point. This decision was agreed upon by all parties. Medical Decision Making: Patient went to PEA arrest possibly secondary to hypoxia or worsening septic shock metabolic acidosis. Unclear at this time. Patient is on multiple vasopressors and max dose. Labs pending. Airway is secured. Dr. Schulz and I agreed not to escalate care him this time and on -if patient were to decompensate again CPR will not be initiated. MELIDA ACEVES MD Sep 15, 2018 14:02
--- NOTE | 2018-09-15 14:09 | CONS ---
Assessment/Plan Assessment/Plan Hospital Course (Demo Recall) Patient was transferred to ICU last night and had pulseless electrical activity this morning he was resuscitated per ACLS protocol, currently on multiple pressors with a temperature of 102.6. WBC 42.5 H&H 9.3 and 34.3 platelets 436 bands 40 BUN 65 creatinine 1.94 Antimicrobials: Vancomycin, Flagyl, Zosyn, fluconazole MICROBIOLOGY: Blood cultures remain negative. Urine culture growing yeast. Stool for C. difficile came back negative INDWELLINGS: Trach, PEG, rectal tube and suprapubic catheter. PHYSICAL EXAMINATION: GENERAL: This is a chronically ill-appearing, wasted, middle-aged man who is obtunded and in no distress HEENT: Head atraumatic, normocephalic. NECK: Supple. Tracheostomy present. CHEST: Rise symmetrical. Breath sounds diminished to bases. HEART: S1, S2. ABDOMEN: Soft, bowel sounds active. EXTREMITIES: Contractured. Cyanotic and mottled ASSESSMENT: 1. Status post cardiac arrest 2. Severe sepsis with shock 3. Recurrent urinary tract infection. 4. Questionable pneumonia. 5. Quadriplegia. 6. Chronic kidney disease status post nephrectomy. 7. ALLERGIES: Tetracyclines. PLAN: Repeat cultures, change fluconazole to [place], continue antibiotics, prognosis very poor Consultation Date/Type/Reason Admit Date/Time Sep 02, 2018 at 16:44 Initial Consult Date Type of Consult id Date/Time of Note DATE: 09/15/18 TIME: 14:07 Exam/Review of Systems Exam Vitals Vital Signs Date Temp Pulse Resp B/P (MAP) Pulse Ox O2 O2 Flow FiO2 Time Delivery Rate 09/15/18 102.4 13:32 09/15/18 134 24 71/45 (54) 73 12:15 09/15/18 [place] 12:00 l Ventilato r 09/15/18 100 06:19 Intake and Output 09/14/18 09/14/18 09/15/18 1515:00 23:00 07:00 IntakeIntake Total 520 ml 1410 ml OutputOutput Total 300 ml BalanceBalance 220 ml 1410 ml Results Result Diagram: 09/15/18 1322 09/15/18 1322 Results 24hrs Laboratory Tests Test 09/14/18 22:00 09/15/18 06:00 09/15/18 10:00 09/15/18 11:42 White Blood 30.4 #H Count Red Blood Count 3.35 L Hemoglobin 9.7 L Hematocrit 35.7 L Mean 106.6 H Corpuscular Volume Mean 29.0 Corpuscular Hemoglobin Mean 27.2 L Corpuscular Hemoglobin Conc ent Red Cell 20.1 H Distribution Width Platelet Count 347 # Mean Platelet 12.8 H Volume Immature 0.800 H Granulocytes % Neutrophils % Segmented 62 Neutrophils % (Manual) Band 21 H Neutrophils % (Manual) Lymphocytes % Lymphocytes % 7 L (Manual) Reactive 1 H Lymphocytes % (Manual) Monocytes % Monocytes % 7 (Manual) Eosinophils % Eosinophils % 2 (Manual) Basophils % Nucleated Red 0.1 H Blood Cells % Immature 0.240 H Granulocytes # Neutrophils # Neutrophils # 20.8 H (Manual) Band 6.3 H Neutrophils # Lymphocytes 2.1 (Manual) Lymphocytes # Reactive 0.3 H Lymphocytes # Monocytes # Monocytes # 2.1 H (Manual) Eosinophils # Basophils # Nucleated Red Blood Cells # Platelet NORMAL Estimate Giant Platelets 6 H Polychromasia 1+ Poikilocytosis 3+ Anisocytosis 1+ Microcytosis 1+ Sodium Level 154 H Potassium Level 5.1 Chloride Level 122 H Carbon Dioxide 29 Level Anion Gap 3 L Blood Urea 61 H Nitrogen Creatinine 1.43 H Est Glomerular 54 L Filtrat Rate mL/min Glucose Level 132 Lactic Acid 1.9 Level Calcium Level 8.5 Blood Gas Blood arterial Blood arterial Blood Specimen arterial Source Arterial Blood 09/15/2018 5:20: 09/15/2018 11:00 09/15/2018 11:5 Date Drawn 52 AM :52 AM 0:35 AM Arterial Blood 7.074 *L 7.106 *L 7.118 *L pH (Temp corrected ) Arterial Blood 81.2 *H 75.0 H 63.4 H pCO2 (Temp correct) Arterial Blood 100.7 H 53.3 *L 51.1 *L pO2 (Temp corrected ) Arterial Blood 23.2 23.1 20.1 L HCO3 Arterial Blood -8.0 L -7.2 L -9.6 L Base Excess Arterial Blood 96.4 84.5 L 82.5 L Oxygen Saturati on Julito Test ACCEPTAB N/A N/A Arterial Blood Right Radial Right Brachial Right Gas Brachial Puncture Site Arterial 0.1 0 0.3 Blood Carboxyhe moglobin Arterial Blood 0.6 0.3 0.6 Methemoglobin Blood Gas A-a 531.1 H 584.7 H 598.5 H O2 Differential Oxyhemoglobin 95.7 84.2 L 81.8 L Percent Blood Gas 37.0 37.0 37.0 Temperature Blood Gas 18.0 24.0 Respiration Rate Blood Gas 18 24 24 Actual Respiration Rat e Blood Gas VENT - AC VENT - AC VENT - AC Modality FiO2 100.0 100.0 100.0 Blood Gas Tidal 500.0 550.0 550.0 Volume Blood Gas Low 5.0 10.0 PEEP Setting Blood Gas RAIN CARMONA RN, DR. Critical Value Read Back Blood Gas LT [place] Geronimo Notified Whom Blood Gas 09/15/2018 5:51: 09/15/2018 11:22 09/15/2018 12:0 Notified Time 12 AM :05 AM 6:37 PM Test 09/15/18 13:08 09/15/18 13:22 Bedside Glucose 121 White Blood 42.5 #H Count Red Blood Count 3.17 L Hemoglobin 9.3 L Hematocrit 34.3 L Mean 108.2 H Corpuscular Volume Mean 29.3 Corpuscular Hemoglobin Mean 27.1 L Corpuscular Hemoglobin Conc ent Red Cell 19.8 H Distribution Width Platelet Count 436 #H Mean Platelet 11.7 H Volume Immature 2.500 H Granulocytes % Neutrophils % Segmented 40 Neutrophils % (Manual) Band 50 H Neutrophils % (Manual) Lymphocytes % Lymphocytes % 4 L (Manual) Monocytes % Monocytes % 2 (Manual) Eosinophils % Basophils % Metamyelocytes 3 H % (manual) Myelocytes % 1 H (Manual) Nucleated Red 0.5 H Blood Cells % Immature 1.050 H Granulocytes # Neutrophils # Neutrophils # 26.0 H (Manual) Band 21.2 H Neutrophils # Lymphocytes 1.7 (Manual) Lymphocytes # Monocytes # Monocytes # 0.8 (Manual) Eosinophils # Basophils # Metamyelocytes 1.2 H # Myelocytes # 0.4 H Nucleated Red Blood Cells # Dohle Bodies 1+ Platelet INCREASED Estimate Giant Platelets 1 H Polychromasia 2+ Poikilocytosis 2+ Anisocytosis 2+ Macrocytosis 2+ Ovalocytes 1+ Sodium Level 148 H Potassium Level 4.4 Chloride Level 119 H Carbon Dioxide 23 Level Anion Gap 6 Blood Urea 65 H Nitrogen Creatinine 1.94 H Est Glomerular 38 L Filtrat Rate mL/min Glucose Level 136 Calcium Level 11.1 #H Phosphorus 5.5 H Level Magnesium Level 2.0 Total Bilirubin 0.2 Direct 0.00 Bilirubin Indirect 0.2 Bilirubin Aspartate Amino 22 Transf (AST/SGO T) Alanine 23 Aminotransferas e (ALT/SGPT) Alkaline 150 H Phosphatase Total Protein 5.9 L Albumin 2.4 L Globulin 3.50 H Albumin/Globuli 0.68 n Ratio Medications Medication Current Medications Ondansetron HCl (Zofran Inj) 4 mg Q6H PRN IV NAUSEA AND/OR VOMITING; Start 09/02/18 at 13:30 Acetaminophen (Tylenol Liquid) 650 mg Q4H PRN GTB PAIN LEVEL 1-3 OR FEVER Last administered on 09/15/18 12:33; Admin Dose 650 MG; Start 09/02/18 at 13:30 Morphine Sulfate (morphine) 2 mg Q4H PRN IV PAIN LEVEL 7-10 Last administered on 09/13/18 21:20; Admin Dose 2 MG; Start 09/02/18 at 13:30 Enoxaparin Sodium (Lovenox) 30 mg DAILY SC Last administered on 09/15/18 09:15; Admin Dose 30 MG; Start 09/03/18 at 09:00 Ascorbic Acid (Vitamin C) 500 mg DAILY GTB Last administered on 09/15/18 09:11; Admin Dose 500 MG; Start 09/03/18 at 09:00 Diphenhydramine HCl (Benadryl) 25 mg QHS PRN GTB ITCHING; Start 09/02/18 at 13:30 Gabapentin (Neurontin Liquid) 300 mg BID GTB Last administered on 09/15/18 09:11; Admin Dose 300 MG; Start 09/02/18 at 21:00 Acetaminophen/ Hydrocodone Bitart ([place] (5/325)) 1 tab Q4H WHILE AWAKE PRN GTB SEVERE PAIN LEVEL 7-10 Last administered on 09/06/18 08:52; Admin Dose 1 TAB; Start 09/02/18 at 13:30 Quetiapine Fumarate (Seroquel) 75 mg BID GTB Last administered on 09/14/18 09:14; Admin Dose 75 MG; Start 09/02/18 at 21:00 Zinc Sulfate (Zinc Sulfate) 220 mg DAILY GTB Last administered on 09/15/18 09:11; Admin Dose 220 MG; Start 09/03/18 at 09:00 Levetiracetam (Keppra Liquid) 500 mg BID GTB Last administered on 09/15/18 09:11; Admin Dose 500 MG; Start 09/02/18 at 21:00 Albuterol (Ventolin Hfa) 2 puff Q4H RESP THERAPY PRN INH SHORTNESS OF BREATH Last administered on 09/04/18 15:03; Admin Dose 2 PUFF; Start 09/03/18 at 12:00 Acetylcysteine (Mucomyst) 1 ml Q6H RESP THERAPY NEB Last administered on 09/15/18 08:45; Admin Dose 1 ML; Start 09/05/18 at 10:00 Famotidine (Pepcid) 20 mg HS GTB Last administered on 09/14/18 21:21; Admin Dose 20 MG; Start 09/06/18 at 21:00 Levalbuterol (Xopenex Neb) 0.63 mg Q6H RESP THERAPY HHN Last administered on 09/15/18 08:44; Admin Dose 0.63 MG; Start 09/10/18 at 14:00 Ipratropium [place] (Atrovent 0.02% (Neb)) 0.5 mg Q6H RESP THERAPY HHN Last administered on 09/15/18 08:44; Admin Dose 0.5 MG; Start 09/10/18 at 14:00 Fluconazole (Diflucan) 100 mg DAILY PO Last administered on 09/15/18 09:11; Admin Dose 100 MG; Start 09/12/18 at 09:00 Piperacillin Sod/ Tazobactam Sod 100 ml @ 200 mls/hr Q6 IVPB Last administered on 09/15/18 12:32; Admin Dose 200 MLS/HR; Start 09/15/18 at 00:00 Sodium Chloride 1,000 ml @ 125 mls/hr Q8H IV Last administered on 09/15/18 06 :48; Admin Dose 125 MLS/HR; Start 09/14/18 at 23:30 Norepinephrine 250 ml @ 1.875 mls/ hr TITRATE IV Last administered on 09/15/18 09:26; Admin Dose 56.25 MLS/HR; Start 09/15/18 at 00:00 Vancomycin HCl (Vanco Iv Per Pharmacy) VANCOMYCIN PER PHARMACY PER PROTOCOL XX ; Start 09/15/18 at 09:30 Metronidazole (Flagyl) 500 mg Q8 PO ; Start 09/15/18 at 09:30 Phenylephrine HCl 80 mg/Dextrose 250 ml @ 18.75 mls/ hr TITRATE IV ; Start 09/15/18 at 10:30 Vasopressin 60 unit/Dextrose 60 ml @ 0 mls/hr Q12H IV ; Start 09/15/18 at 11:30 Vancomycin HCl 250 ml @ 125 mls/hr ONCE IVPB ; Start 09/15/18 at 12:00; Stop 09/15/18 at 18:00 Vancomycin/Sodium Chloride 250 ml @ 125 mls/hr Q36H IVPB ; Start 09/17/18 at 00:00 REGINALDO BOND NP Sep 15, 2018 14:09
--- NOTE | 2018-09-15 14:20 | EN ---
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 The patient was unresponsive to verbal stimulus and sternal rub; no spontaneous movement was observed. Heart and breath sounds were absent for > 1 minute; radial pulses were not palpable. Pupils were fixed and dilated; corneal reflex was absent. Time of was [1414]. The next of kin and the attending physician were notified. MELIDA ACEVES MD Sep 15, 2018 14:20
[2018-09-15] MEDS ORDERED: CASPOFUNGIN 70 MG in SOD CHLORIDE 0.9% 250 ML IVPB ONE (14:30)
[2018-09-15] MEDS ORDERED: metroNIDAZOLE 500 MG/NS (PMX) 100 ML IVPB SCH (14:30)
[2018-09-15] MEDS ORDERED: CASPOFUNGIN 50 MG in SOD CHLORIDE 0.9% 250 ML IVPB SCH (14:30)
--- NOTE | 2018-09-15 16:17 | DES ---
Date/Time of Note Date/Time of Note DATE: 09/15/18 TIME: 16:15 Discharge/ Summary Admission/Discharge Info Admit Date/Time Sep 02, 2018 at 16:44 Date/Time 09/15/18 1300 Final Diagnosis 1) sepsis 2) pneumonia 3) respiratory failure Preliminary Cause of sepsis due to pneumonia Admit History Patient with chronic respiratory failure, seizure disorder, renal insufficiency comes from subacute facility with hypotension and shortness of breath. Patient is admitted for further treatment and evaluation. Hospital Course Patient with chronic respiratory failure, seizure disorder, renal insufficiency comes from subacute facility with hypotension and shortness of breath. Patient is admitted for further treatment and evaluation. Neri was treated with antibiotics. He slowly improved but then worsened again with sepsis and hypotension. Patient was transferred to ICU for vasopressor support. However, despite all support, patient from illness. 1) sepsis - IV antibiotics 2) hypotension - secondary to #1 - give IV fluids, on vasopressors 3) respiratory failure - continue on vent 4) seizure disorder - continue keppra Pending Labs/Cultures Laboratory Tests Test 09/14/18 22:00 09/15/18 06:00 09/15/18 10:00 09/15/18 11:42 White Blood 30.4 Count 10^3/ul (4.8-10 .8) Red Blood 3.35 Count 10^6/ul (4.70-6 .10) Hemoglobin 9.7 g/dl (14.0-18.0 ) Hematocrit 35.7 % (42.0-52.0) Mean 106.6 Corpuscular fl (82.0-101.0) Volume Mean 29.0 Corpuscular pg (29.0-33.0) Hemoglobin Mean 27.2 Corpuscular g/dl (32.0-37.0 Hemoglobin Conc ) ent Red Cell 20.1 Distribution % (11.5-14.5) Width Platelet Count 347 10^3/UL (140-41 5) Mean Platelet 12.8 Volume fl (7.4-10.4) Immature 0.800 Granulocytes % % (0.001-0.429) Neutrophils % % (39.0-77.0) Segmented 62 % (39-77) Neutrophils % (Manual) Band 21 % (0-4) Neutrophils % (Manual) Lymphocytes % % (15.0-51.0) Lymphocytes % 7 % (15-51) (Manual) Reactive 1 % (0-0) Lymphocytes % (Manual) Monocytes % % (0.0-11.0) Monocytes % 7 % (0-11) (Manual) Eosinophils % % (0.0-7.0) Eosinophils % 2 % (0-7) (Manual) Basophils % % (0.0-2.0) Nucleated Red 0.1 Blood Cells % /100WBC (0.0-0. 0) Immature 0.240 Granulocytes # 10^3/ul (0.0-0. 031) Neutrophils # 10^3/ul (1.6-7. 5) Neutrophils # 20.8 (Manual) 10^3/ul (1.6-7. 5) Band 6.3 Neutrophils # 10^3/ul (0.0-0. 6) Lymphocytes 2.1 (Manual) 10^3/ul (0.8-2. 9) Lymphocytes # 10^3/ul (0.8-2. 9) Reactive 0.3 Lymphocytes # 10^3/ul (0.0-0. 0) Monocytes # 10^3/ul (0.3-0. 9) Monocytes # 2.1 (Manual) 10^3/ul (0.3-0. 9) Eosinophils # 10^3/ul (0.0-0. 5) Basophils # 10^3/ul (0.0-0. 1) Nucleated Red 10^3/ul (0.0-0. Blood Cells # 0) Platelet NORMAL Estimate Giant Platelets 6 % (0-0) Polychromasia 1+ (0-0) Poikilocytosis 3+ (0-0) Anisocytosis 1+ (0-0) Microcytosis 1+ (0-0) Sodium Level 154 mmol/L (135-144 ) Potassium 5.1 Level mmol/L (3.5-5.1 ) Chloride Level 122 mmol/L (97-110) Carbon Dioxide 29 Level mmol/L (21-31) Anion Gap 3 (5-13) Blood Urea 61 mg/dl (7-20) Nitrogen Creatinine 1.43 mg/dl (0.61-1.2 4) Est Glomerular 54 mL/min (>60) Filtrat Rate mL/min Glucose Level 132 mg/dl (70-220) Lactic Acid 1.9 Level mmol/L (0.5-2.0 ) Calcium Level 8.5 mg/dl (8.4-10.2 ) Blood Gas Blood arterial Blood arterial Blood arterial Specimen Source Arterial Blood 09/15/2018 5:20 09/15/2018 11:0 09/15/2018 11:5 Date Drawn :52 AM 0:52 AM 0:35 AM Arterial Blood 7.074 (7.350-7 7.106 (7.350-7 7.118 (7.350-7 pH .450) .450) .450) (Temp corrected ) Arterial Blood 81.2 75.0 63.4 pCO2 mmhg (35-45) mmhg (35-45) mmhg (35-45) (Temp correct) Arterial Blood 100.7 53.3 51.1 pO2 mmHG (80-100.0 mmHG (80-100.0 mmHG (80-100.0 (Temp corrected ) ) ) ) Arterial Blood 23.2 23.1 20.1 HCO3 mmol/L (22.0-2 mmol/L (22.0-2 mmol/L (22.0-2 6.0) 6.0) 6.0) Arterial Blood -8.0 -7.2 -9.6 Base Excess mmol/L (-3.0-3 mmol/L (-3.0-3 mmol/L (-3.0-3 ) ) ) Arterial Blood 96.4 84.5 82.5 Oxygen Saturati mmHG (95.0-98. mmHG (95.0-98. mmHG (95.0-98. on 0) 0) 0) Julito Test ACCEPTAB N/A N/A Arterial Blood Right Radial Right Brachial Right Brachial Gas Puncture Site Arterial 0.1 0 % (0.0-3.0) 0.3 Blood Carboxyhe % (0.0-3.0) % (0.0-3.0) moglobin Arterial Blood 0.6 0.3 0.6 Methemoglobin % (0.0-1.5) % (0.0-1.5) % (0.0-1.5) Blood Gas A-a 531.1 584.7 598.5 O2 mmHg (7.0-24.0 mmHg (7.0-24.0 mmHg (7.0-24.0 Differential ) ) ) Oxyhemoglobin 95.7 84.2 81.8 Percent % (93.0-99.0) % (93.0-99.0) % (93.0-99.0) Blood Gas 37.0 C 37.0 C 37.0 C Temperature Blood Gas 18.0 24.0 Respiration Rate Blood Gas 18 24 24 Actual Respiration Rat e Blood Gas VENT - AC VENT - AC VENT - AC Modality FiO2 100.0 % 100.0 % 100.0 % Blood Gas Tidal 500.0 mL 550.0 mL 550.0 mL Volume Blood Gas Low 5.0 cmH2O 10.0 cmH2O PEEP Setting Blood Gas ARIA. Oh ALEXANDER, RAIN ACEVES Critical Value Read Back Blood Gas JUAN Melton Notified Whom Blood Gas 09/15/2018 5:51 09/15/2018 11:2 09/15/2018 12:0 Notified Time :12 AM 2:05 AM 6:37 PM Test 09/15/18 13:08 09/15/18 13:22 Bedside 121 Glucose mg/dL (70-220) White Blood 42.5 Count 10^3/ul (4.8-1 0.8) Red Blood 3.17 Count 10^6/ul (4.70- 6.10) Hemoglobin 9.3 g/dl (14.0-18. 0) Hematocrit 34.3 % (42.0-52.0) Mean 108.2 Corpuscular fl (82.0-101.0 Volume ) Mean 29.3 Corpuscular pg (29.0-33.0) Hemoglobin Mean 27.1 Corpuscular g/dl (32.0-37. Hemoglobin Conc 0) ent Red Cell 19.8 Distribution % (11.5-14.5) Width Platelet Count 436 10^3/UL (140-4 15) Mean Platelet 11.7 Volume fl (7.4-10.4) Immature 2.500 Granulocytes % % (0.001-0.429 ) Neutrophils % % (39.0-77.0) Segmented 40 % (39-77) Neutrophils % (Manual) Band 50 % (0-4) Neutrophils % (Manual) Lymphocytes % % (15.0-51.0) Lymphocytes % 4 % (15-51) (Manual) Monocytes % % (0.0-11.0) Monocytes % 2 % (0-11) (Manual) Eosinophils % % (0.0-7.0) Basophils % % (0.0-2.0) Metamyelocytes 3 % (0-0) % (manual) Myelocytes % 1 % (0-0) (Manual) Nucleated Red 0.5 Blood Cells % /100WBC (0.0-0 .0) Immature 1.050 Granulocytes # 10^3/ul (0.0-0 .031) Neutrophils # 10^3/ul (1.6-7 .5) Neutrophils # 26.0 (Manual) 10^3/ul (1.6-7 .5) Band 21.2 Neutrophils # 10^3/ul (0.0-0 .6) Lymphocytes 1.7 (Manual) 10^3/ul (0.8-2 .9) Lymphocytes # 10^3/ul (0.8-2 .9) Monocytes # 10^3/ul (0.3-0 .9) Monocytes # 0.8 (Manual) 10^3/ul (0.3-0 .9) Eosinophils # 10^3/ul (0.0-0 .5) Basophils # 10^3/ul (0.0-0 .1) Metamyelocytes 1.2 # 10^3/ul (0.0-0 .0) Myelocytes # 0.4 10^3/ul (0.0-0 .0) Nucleated Red 10^3/ul (0.0-0 Blood Cells # .0) Dohle Bodies 1+ (0-0) Platelet INCREASED Estimate Giant Platelets 1 % (0-0) Polychromasia 2+ (0-0) Poikilocytosis 2+ (0-0) Anisocytosis 2+ (0-0) Macrocytosis 2+ (0-0) Ovalocytes 1+ (0-0) Sodium Level 148 mmol/L (135-14 4) Potassium 4.4 Level mmol/L (3.5-5. 1) Chloride Level 119 mmol/L (97-110 ) Carbon Dioxide 23 Level mmol/L (21-31) Anion Gap 6 (5-13) Blood Urea 65 Nitrogen mg/dl (7-20) Creatinine 1.94 mg/dl (0.61-1. 24) Est Glomerular 38 Filtrat mL/min (>60) Rate mL/min Glucose Level 136 mg/dl (70-220) Calcium Level 11.1 mg/dl (8.4-10. 2) Phosphorus 5.5 Level mg/dl (2.5-4.9 ) Magnesium 2.0 Level mg/dl (1.7-2.5 ) Total 0.2 Bilirubin mg/dl (0.2-1.3 ) Direct 0.00 Bilirubin mg/dl (0.00-0. 20) Indirect 0.2 Bilirubin mg/dl (0-1.1) Aspartate Amino 22 Transf (AST/SGO IU/L (15-46) T) Alanine 23 Aminotransferas IU/L (13-69) e (ALT/SGPT) Alkaline 150 Phosphatase IU/L (42-121) Total Protein 5.9 g/dl (6.1-8.1) Albumin 2.4 g/dl (3.3-4.9) Globulin 3.50 g/dl (1.3-3.2) Albumin/Globuli 0.68 n Ratio DANAY MUIR Sep 15, 2018 16:17
--- NOTE | 2018-09-16 13:00 | RADRPT ---
Vent Rate: 171 bpm RR Interval: 352 msec MS Interval: 108 msec QRS Duration: 149 msec QT Interval: 322 msec QTC Interval: 543 msec P-R-T [place]: 54 - -175 - 46 degrees Wide complex tachycardia. Possible atrial flutter with RBBB vs ventricular tachycardia Electronically Signed By: Arthur Cifuentes
[2018-09-17] MEDS ORDERED: VANCOMYCIN 750 MG (PMX) 250 ML IVPB SCH
== END 2018-09-15 14:14 | disposition expired | DRG 870 ==
LOC: E/R 08:09 → EDBEDREQ 10:24 → ICU 16:44 → TEL 09-10 00:50 → ICU 09-14 19:04
PROVIDERS: ADMIT Internal Medicine; ATTEND Internal Medicine
PROC: 02HV33Z Insertion of Infusion Device into Superior Vena Cava, Percutaneous Approach (ICD-10-PCS; principal; 2018-09-02)
PROC: 5A1955Z Respiratory Ventilation, Greater than 96 Consecutive Hours (ICD-10-PCS; 2018-09-02)
PROC: 0B21XFZ Change Tracheostomy Device in Trachea, External Approach (ICD-10-PCS; 2018-09-02)
PROC: 5A12012 Performance of Cardiac Output, Single, Manual (ICD-10-PCS; 2018-09-02)
DX: A41.9 Sepsis, unspecified organism (principal); J18.9 Pneumonia, unspecified organism; L89.154 Pressure ulcer of sacral region, stage 4; L89.323 Pressure ulcer of left buttock, stage 3; L89.313 Pressure ulcer of right buttock, stage 3; R65.21 Severe sepsis with septic shock; G82.50 Quadriplegia, unspecified; E43 Unspecified severe protein-calorie malnutrition; N17.9 Acute kidney failure, unspecified; J96.10 Chronic respiratory failure, unspecified whether with hypoxia or hypercapnia; N39.0 Urinary tract infection, site not specified; E87.2 Acidosis; J95.09 Other tracheostomy complication; G93.40 Encephalopathy, unspecified; N18.9 Chronic kidney disease, unspecified; R40.2432 Glasgow coma scale score 3-8, at arrival to emergency department; G40.909 Epilepsy, unspecified, not intractable, without status epilepticus; I46.9 Cardiac arrest, cause unspecified; R19.7 Diarrhea, unspecified; N31.9 Neuromuscular dysfunction of bladder, unspecified; F31.9 Bipolar disorder, unspecified; Y83.8 Other surgical procedures as the cause of abnormal reaction of the patient, or of later complication, without mention of misadventure at the time of the procedure; Z99.11 Dependence on respirator [ventilator] status; Z68.1 Body mass index [BMI] 19.9 or less, adult; Z93.50 Unspecified cystostomy status; Z93.1 Gastrostomy status
CPT/HCPCS: 36415; 36430; 36600; 70450; 71045; 76942; 80048; 80053; 80202; 81001; 82565; 82803; 82962; 83036; 83605; 83735; 84100; 84145; 84484; 84520; 85025; 85610; 85730; 86850; 86870; 86900; 86901; 86920; 87045; 87075; 87081; 87086; 92526; 92610; 93005; 94002; 94003; 94640; 94668; J0171; J0692; J1650; J2270; J2370; J2543; J3370; J7030; J7040; J7070; P9016; P9047